=== PATIENT | male | born 1970 | race Caucasian/White ===

== ENCOUNTER 2019-10-26 17:10 | Emergency (ER) | payer OTHER, SELFPAY ==
[2019-10-26 17:30] VITALS: BP 142/90; PULSE 70; RESP 16; TEMP 36.6; O2SAT 98
--- NOTE | 2019-10-26 17:45 | ED.GENADULT ---
HPI - General Adult General Chief complaint: Ear Stated complaint: ear pain Time Seen by Provider: 10/26/19 17:14 Source: patient Mode of arrival: ambulatory Limitations: no limitations History of Present Illness HPI narrative: 49-year-old male patient presents to the [facility] with complaints of left ear pain that started worse today. Patient states he has had some sinus issues and some cold symptoms going on for the past week and did see his primary doctor earlier this week and was told that his left ear does look a little red but states that it was not infected and did not need antibiotics. Patient does take Flonase daily he states 2 squirts in each nostril once a day. Patient states that 24-hour antihistamines typically do not work for him so he does not take them but he does take 50 mg of Benadryl once a day. Patient states he is also been taking Tylenol for his symptoms. Patient states he has a slight sore throat with some nasal congestion and a clear runny nose but denies any chest pain or shortness of breath. Related Data Home Medications Medication Instructions Recorded Confirmed alprazolam 10/26/19 atenolol 10/26/19 fluticasone propionate INTRANASAL 10/26/19 omeprazole 10/26/19 Allergies Allergy/AdvReac Type Severity Reaction Status Date / Time levofloxacin Allergy Mild Unknown Verified 10/26/19 17:26 lidocaine Allergy Mild Unknown Verified 10/26/19 17:26 NSAIDS (Non-Steroidal Allergy Mild gastritis Verified 10/26/19 17:26 Anti-Inflamma Quinolones Allergy Mild Unknown Verified 10/26/19 17:26 Sulfa (Sulfonamide Allergy Mild RASH Verified 10/26/19 17:26 Antibiotics) sulfamethoxazole Allergy Mild RASH Verified 10/26/19 17:26 trimethoprim Allergy Mild RASH Verified 10/26/19 17:26 acetaminophen Allergy Unknown Unknown Verified 10/26/19 17:26 amlodipine Allergy Unknown HIVES Verified 10/26/19 17:26 azithromycin Allergy Unknown Unknown Verified 10/26/19 17:26 cephalexin Allergy Unknown Unknown Verified 10/26/19 17:26 famotidine Allergy Unknown Unknown Verified 10/26/19 17:26 flavoxate Allergy Unknown Unknown Verified 10/26/19 17:26 lisinopril Allergy Unknown HIVES Verified 10/26/19 17:26 losartan Allergy Unknown SWLLEING Verified 10/26/19 17:26 LIP AND HIVES nebivolol Allergy Unknown LIP Verified 10/26/19 17:26 SWELLING nitrofurantoin Allergy Unknown Unknown Verified 10/26/19 17:26 oxycodone Allergy Unknown Unknown Verified 10/26/19 17:26 paroxetine Allergy Unknown Unknown Verified 10/26/19 17:26 spironolactone Allergy Unknown RASH AND Verified 10/01/19 19:38 ITCHING valsartan Allergy Unknown HIVES/SOB Verified 10/26/19 17:26 IV CONTRAST Allergy Intermediate THROAT Uncoded 10/26/19 17:26 CLOSES, SWEATING IV PEPCID Allergy Intermediate SWEATING, Uncoded 10/26/19 17:26 HIVES Contrast Media Allergy Mild Unknown Uncoded 10/01/19 19:38 Review of Systems Review of Systems: Narrative: CONSTITUTIONAL: Denies fever, chills, or sweats. EYES: Denies visual changes, redness, or discharge. ENT: Positive rhinorrhea, congestion, sore throat, and left otalgia. CARDIOVASCULAR: Denies chest pain, palpitations, or edema. RESPIRATORY: Positive mild cough, denies dyspnea. GASTROINTESTINAL: Denies abdominal pain, nausea, vomiting, or diarrhea. GENITOURINARY: Denies dysuria or hematuria. SKIN: Denies rash or itching. MUSCULOSKELETAL: Denies back pain, joint pain, or myalgia. NEUROLOGIC: Denies headache, numbness, or weakness. PSYCHIATRIC: Denies anxiety or depression. 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
== END 2019-10-26 17:58 | disposition home or self-care (01) ==
PROVIDERS: Emergency Provider Nurse Practitioner Family
DX: H93.8X3 Other specified disorders of ear, bilateral (principal); J06.9 Acute upper respiratory infection, unspecified; Z98.84 Bariatric surgery status; J45.909 Unspecified asthma, uncomplicated; I25.10 Atherosclerotic heart disease of native coronary artery without angina pectoris; K21.9 Gastro-esophageal reflux disease without esophagitis; I10 Essential (primary) hypertension; E78.5 Hyperlipidemia, unspecified; G47.30 Sleep apnea, unspecified; I25.2 Old myocardial infarction; F41.9 Anxiety disorder, unspecified
CPT/HCPCS: 99211; G0463

== ENCOUNTER 2019-10-30 18:59 | Emergency (ER) | payer OTHER, SELFPAY ==
[2019-10-30 19:18] VITALS: BP 156/97; PULSE 69; RESP 16; TEMP 37.1; O2SAT 98
--- NOTE | 2019-10-30 19:20 | PC.NURSE ---
in br to obtain ua spec.
--- NOTE | 2019-10-30 19:29 | ED.GENADULT ---
HPI - General Adult General Chief complaint: Upper Respiratory Infection Stated complaint: Sinus/L/Ear/Frequent Urination/Chills/Sweating Time Seen by Provider: 10/30/19 19:30 Source: patient and RN notes reviewed Mode of arrival: ambulatory Limitations: no limitations History of Present Illness HPI narrative: 49-year-old male presents with multiple complaints. Reports urine frequency, hematuria on and off for the past 2 weeks. Reports he was seen in the emergency room and had work-up that was negative. Reports he has an appointment with a urologist this week. He also reports left ear and/or jaw pain. Reports he was seen 1 week ago and told to double up on his Flonase which he did and it did not work. He denies fever, rhinorrhea. Reports chills, body aches. MD complaint: Jaw pain, urine frequency Related Data Home Medications Medication Instructions Recorded Confirmed alprazolam 10/26/19 atenolol 10/26/19 fluticasone propionate INTRANASAL 10/26/19 omeprazole 10/26/19 finasteride mg 10/30/19 sitagliptin [Januvia] mg 10/30/19 Allergies Allergy/AdvReac Type Severity Reaction Status Date / Time levofloxacin Allergy Mild Unknown Verified 10/26/19 17:26 lidocaine Allergy Mild Unknown Verified 10/26/19 17:26 NSAIDS (Non-Steroidal Allergy Mild gastritis Verified 10/26/19 17:26 Anti-Inflamma Quinolones Allergy Mild Unknown Verified 10/26/19 17:26 Sulfa (Sulfonamide Allergy Mild RASH Verified 10/26/19 17:26 Antibiotics) sulfamethoxazole Allergy Mild RASH Verified 10/26/19 17:26 trimethoprim Allergy Mild RASH Verified 10/26/19 17:26 acetaminophen Allergy Unknown Unknown Verified 10/26/19 17:26 amlodipine Allergy Unknown HIVES Verified 10/26/19 17:26 azithromycin Allergy Unknown Unknown Verified 10/26/19 17:26 cephalexin Allergy Unknown Unknown Verified 10/26/19 17:26 famotidine Allergy Unknown Unknown Verified 10/26/19 17:26 flavoxate Allergy Unknown Unknown Verified 10/26/19 17:26 lisinopril Allergy Unknown HIVES Verified 10/26/19 17:26 losartan Allergy Unknown SWLLEING Verified 10/26/19 17:26 LIP AND HIVES nebivolol Allergy Unknown LIP Verified 10/26/19 17:26 SWELLING nitrofurantoin Allergy Unknown Unknown Verified 10/26/19 17:26 oxycodone Allergy Unknown Unknown Verified 10/26/19 17:26 paroxetine Allergy Unknown Unknown Verified 10/26/19 17:26 spironolactone Allergy Unknown RASH AND Verified 10/01/19 19:38 ITCHING valsartan Allergy Unknown HIVES/SOB Verified 10/26/19 17:26 IV CONTRAST Allergy Intermediate THROAT Uncoded 10/26/19 17:26 CLOSES, SWEATING IV PEPCID Allergy Intermediate SWEATING, Uncoded 10/26/19 17:26 HIVES Contrast Media Allergy Mild Unknown Uncoded 10/01/19 19:38 Review of Systems Review of Systems: Narrative: CONSTITUTIONAL: Denies malaise, fever. Reports chills, sweats EYES: Denies visual changes, redness, or discharge. ENT: Denies rhinorrhea, congestion, sinus pain, or sore throat.. Reports left ear and jaw pain CARDIOVASCULAR: Denies chest pain, palpitations, or edema. RESPIRATORY: Denies improving cough. Denies dyspnea. GASTROINTESTINAL: Denies abdominal pain, nausea, vomiting, diarrhea GENITOURINARY: Denies dysuria. Reports frequency, hematuria. MUSCULOSKELETAL: Reports myalgia. All systems reviewed & are unremarkable except as noted in HPI and below PMFSH Social History Social History Smoking status: Never smoker Comments At time of signature, agree with nursing past medical, surgical, social and family history. There is no relevant family history pertinent to the presenting complaint Exam Narrative: Exam Narrative: GENERAL: Well-appearing, well-nourished, and in no acute distress. HEAD: Normocephalic EYES: PERRLA, conjunctivae clear ENT: Nares clear, turbinates erythematous with clear rhinorrhea. Mucous membranes moist. TM pearly valdez with sharp light reflex bilaterally; no tragal t
== END 2019-10-30 20:12 | disposition home or self-care (01) ==
PROVIDERS: Emergency Provider Nurse Practitioner
DX: R35.0 Frequency of micturition (principal); R68.84 Jaw pain; R31.29 Other microscopic hematuria; I10 Essential (primary) hypertension; K21.9 Gastro-esophageal reflux disease without esophagitis; E11.9 Type 2 diabetes mellitus without complications
CPT/HCPCS: 81003; 87086; 99213; G0463

== ENCOUNTER 2019-11-10 10:58 | Emergency (ER) | payer OTHER, SELFPAY ==
--- NOTE | ~2019-11-10 | XR_ITS ---
EXAMINATION: XR finger 1st LT min 2V INDICATION: Left first finger pain TECHNIQUE: Three views of the left first finger are obtained. COMPARISON: None available FINDINGS: A well-corticated osseous fragment projecting dorsal to the first interphalangeal joint. No definite acute osseous abnormality is identified. There is mild soft tissue swelling of the finger. IMPRESSION: 1. No definite acute osseous abnormality. Well-corticated osseous fragment projecting dorsal to the f irst interphalangeal joint may reflect old injury. Reviewed, dictated and finalized at location A. EM INTEGRATION ENGINEER IMPRESSION: 1. No definite acute osseous abnormality. Well-corticated osseous fragment proj ecting dorsal to the first interphalangeal joint may reflect old injury.
[2019-11-10 11:15] VITALS: BP 146/70; PULSE 63; RESP 16; TEMP 36.8; O2SAT 99
--- NOTE | 2019-11-10 11:32 | ED.GENADULT ---
HPI - General Adult General Chief complaint: Extremity Injury, Upper Stated complaint: Left Thumb Pain Time Seen by Provider: 11/10/19 11:33 Source: patient Mode of arrival: ambulatory Limitations: no limitations History of Present Illness HPI narrative: 49-year-old male patient presents to the [facility] with complaints of left thumb pain. Patient states that he was reaching into the washer and jammed his left thumb. Patient states he had a little bit of bleeding at the distal portion of the nail which has since stopped. Patient states he did ice the thumb a little bit. Denies taking anything for the pain. Patient states it does hurt at the knuckles and is concerned that he might have broken it requesting an x-ray. Related Data Home Medications Medication Instructions Recorded Confirmed albuterol sulfate INHALATION 11/10/19 alfuzosin mg PO 11/10/19 alprazolam 11/10/19 atenolol 11/10/19 diphenhydramine HCl [Benadryl] 50 mg PO Q6H PRN 11/10/19 11/10/19 finasteride mg 11/10/19 fluticasone propionate INTRANASAL 11/10/19 glimepiride mg 11/10/19 metformin mg PO 11/10/19 omeprazole 11/10/19 sitagliptin [Januvia] mg 11/10/19 Review of Systems Review of Systems: Narrative: CONSTITUTIONAL: Denies fever, chills, or sweats. EYES: Denies visual changes, redness, or discharge. ENT: Denies rhinorrhea, congestion, sore throat, or otalgia. CARDIOVASCULAR: Denies chest pain, palpitations, or edema. RESPIRATORY: Denies cough or dyspnea. GASTROINTESTINAL: Denies abdominal pain, nausea, vomiting, or diarrhea. GENITOURINARY: Denies dysuria or hematuria. SKIN: Denies rash or itching. MUSCULOSKELETAL: Denies back pain, joint pain, or myalgia. Positive left thumb pain NEUROLOGIC: Denies headache, numbness, or weakness. PSYCHIATRIC: Denies anxiety or depression. REPLACED BY [facility] Family History Family History Grandparent Family history of obesity Hypertension Diabetes mellitus Mother Depression Patient's mother is in good health Family history of mental disorder Father Hypertension Patient's father is in good health Family history of alcoholism Cerebrovascular accident Sibling Patient's sister is in good health Patient's brother is in good health Other Family history of cardiovascular disease Social History Social History Smoking status: Never smoker Smoking end date: 09/13/11 Alcohol intake: never Comments At the time of my signature I agree with nursing past medical history, surgical, social, and family history. There is no relevant family history pertinent to the presenting complaint. Exam Narrative: Exam Narrative: GENERAL: Well-appearing, well-nourished, and in no acute distress. HEAD: Normocephalic, atraumatic. EYES: PERRLA and EOMI. ENT: Nares clear, no rhinorrhea or epistaxis. Mucous membranes moist. NECK: Supple. No lymphadenopathy CHEST: Clear to auscultation. No respiratory distress. HEART: Regular rate and rhythm. No murmur heard. Normal peripheral pulses. ABDOMEN: Soft, nontender, nondistended, normal active bowel sounds. EXTREMITIES: The L hand is without obvious asymmetry or deformity when compared to the R hand. No swelling, erythema, atrophy, or obvious deformity. No surface trauma, open wounds, nail avulsion, tissue avulsion, partial or complete amputation, subungual hematoma, bony deformity. Normal cascade of fingers. Normal flexion and extension of fingers but does have pain to the left thumb with this motion. Patient has a little bit of blood noted to the distal and of the finger nail. No active bleeding at this time. FDS and FDP intact aganist restistance. No focal fullness, thobbing pain, swelling of fingertip. Tenderness noted to palpation at the DIP and PIP joint on the left thumb. Pulses and cap refill are intact and normal. SKIN: Warm, dry, no rash. NEURO: No focal deficits.
--- NOTE | 2019-11-10 11:55 | PC.NURSE ---
chart not complete with medications, history, or allergies. said too many allergies to list. aware of multiple medical records and need to combine. ems manager, exp director and IT notified.
== END 2019-11-10 12:05 | disposition home or self-care (01) ==
PROVIDERS: Emergency Provider Nurse Practitioner Family
DX: S69.92XA Unspecified injury of left wrist, hand and finger(s), initial encounter (principal); W22.8XXA Striking against or struck by other objects, initial encounter; E78.00 Pure hypercholesterolemia, unspecified; I10 Essential (primary) hypertension; I25.2 Old myocardial infarction; K21.9 Gastro-esophageal reflux disease without esophagitis; E11.9 Type 2 diabetes mellitus without complications; F41.9 Anxiety disorder, unspecified; F32.9 Major depressive disorder, single episode, unspecified
CPT/HCPCS: 29130; 73140; 99203; G0463

== ENCOUNTER 2019-11-27 15:22 | Emergency (ER) | payer OTHER, SELFPAY ==
--- NOTE | ~2019-11-27 | XR_ITS ---
EXAMINATION: XR chest 2V DATE: 11/27/2019 16:22 INDICATION: Cough and shortness of breath TECHNIQUE: frontal and lateral views of the chest were obtained. COMPARISON: Chest radiograph dated 09/09/2019 FINDINGS: The lungs remain clear with no focal airspace opacities, pulmonary edema, pleural effusion or pneumot horax. The cardiomediastinal silhouette is normal. Mild upper thoracic levoscoliosis. IMPRESSION: 1. No acute cardiopulmonary disease. Reviewed, dictated and finalized at location A.
[2019-11-27 15:29] VITALS: BP 173/88; PULSE 64; RESP 20; TEMP 36.4; O2SAT 100
--- NOTE | 2019-11-27 16:13 | ED.GENADULT ---
HPI - General Adult General Chief complaint: Upper Respiratory Infection Stated complaint: cough/sinus issues/rib pain History of Present Illness HPI narrative: Patient is a 49-year-old male with a history significant for asthma and pneumonia who presents to the urgent care for evaluation of shortness of breath and bilateral rib pain that began approximately 6 days ago. He also reports semi-productive cough, sinus congestion, hoarseness, and sweats. Sputum production is thick but sometimes thin, small in quantity and yellow in color. He has been taking OTC cough suppressants, inhaler, Flonase, or Tylenol. Nothing improves or worsen symptoms. Patient initially thought his symptoms were caused by anxiety although he came concerned when he began experiencing shortness of breath. He does report increased stress lately. He does report rash on nose although has been wearing a mask the majority of his day. He states he has called [facility] in [place] regarding coronavirus and was informed that he did not meet criteria for testing. He states, they told me they don't even see CT. patients. That only [place] sees [place] patients and [place] sees [place] patients . Patient is requesting a mask for who is at home. He states his is concerned that she may contract his illness. Of note, patient reports he was seen at [facility] for eye drainage and was prescribed ophthalmologic antibiotic and continues to verbalize his frustrations with the provider in clinic at that time. Patient also reports firing his PCP since he was unhappy with their service as well. l denies history of COPD, bronchitis. Denies current/past tobacco use. Pertinent negatives: fever, sweats, chills, change in appetite, fatigue, skin color changes, headache, nasal congestion/discharge, dizziness, lymphadenopathy, sinus problems, ear pain/drainage, chest pain, heart murmurs, heart palpitations, shortness of breath, wheezing, cyanosis, hemoptysis, hoarseness, orthopnea, pleuritic pain, nausea, vomiting, diarrhea, and myalgias. Related Data Home Medications Medication Instructions Recorded Confirmed alprazolam 10/26/19 atenolol 10/26/19 fluticasone propionate INTRANASAL 10/26/19 albuterol sulfate INHALATION 11/10/19 omeprazole 11/10/19 diphenhydramine HCl [Benadryl] 50 mg PO HS 11/27/19 11/27/19 Allergies Allergy/AdvReac Type Severity Reaction Status Date / Time levofloxacin Allergy Mild Unknown Verified 11/27/19 15:39 lidocaine Allergy Mild Unknown Verified 11/27/19 15:39 NSAIDS (Non-Steroidal Allergy Mild gastritis Verified 11/27/19 15:39 Anti-Inflamma Quinolones Allergy Mild Unknown Verified 11/27/19 15:39 Sulfa (Sulfonamide Allergy Mild RASH Verified 11/27/19 15:39 Antibiotics) sulfamethoxazole Allergy Mild RASH Verified 11/27/19 15:39 trimethoprim Allergy Mild RASH Verified 11/27/19 15:39 acetaminophen Allergy Unknown Unknown Verified 11/27/19 15:39 amlodipine Allergy Unknown HIVES Verified 11/27/19 15:39 azithromycin Allergy Unknown Unknown Verified 11/27/19 15:39 cephalexin Allergy Unknown Unknown Verified 11/27/19 15:39 famotidine Allergy Unknown Unknown Verified 11/27/19 15:39 flavoxate Allergy Unknown Unknown Verified 11/27/19 15:39 lisinopril Allergy Unknown HIVES Verified 11/27/19 15:39 losartan Allergy Unknown SWLLEING Verified 11/27/19 15:39 LIP AND HIVES nebivolol Allergy Unknown LIP Verified 11/27/19 15:39 SWELLING nitrofurantoin Allergy Unknown Unknown Verified 11/27/19 15:39 oxycodone Allergy Unknown Unknown Verified 11/27/19 15:39 paroxetine Allergy Unknown Unknown Verified 11/27/19 15:39 spironolactone Allergy Unknown RASH AND Verified 11/27/19 15:39 ITCHING valsartan Allergy Unknown HIVES/SOB Verified 11/27/19 15:39 IV CONTRAST Allergy Intermediate THROAT Uncoded 11/17/19 14:30 CLOSES, SWEATING IV PEPCID Allergy Intermediate SWEATING, Uncoded 11/17/19 14:30 HIVES Contrast Media Allergy Mild Unknown Uncod
== END 2019-11-27 16:31 | disposition home or self-care (01) ==
PROVIDERS: Emergency Provider Nurse Practitioner Family
DX: S01.20XA Unspecified open wound of nose, initial encounter (principal); X58.XXXA Exposure to other specified factors, initial encounter; J06.9 Acute upper respiratory infection, unspecified; Z98.84 Bariatric surgery status; F41.9 Anxiety disorder, unspecified; J45.909 Unspecified asthma, uncomplicated; I25.10 Atherosclerotic heart disease of native coronary artery without angina pectoris; J21.9 Acute bronchiolitis, unspecified; I25.2 Old myocardial infarction; I10 Essential (primary) hypertension; G47.30 Sleep apnea, unspecified
CPT/HCPCS: 71046; 87081; 87804; 87880; 99213; G0463

== ENCOUNTER 2019-12-11 18:22 | Emergency (ER) | payer OTHER, SELFPAY ==
[2019-12-11 18:28] VITALS: BP 167/92; PULSE 66; RESP 20; TEMP 36.6; O2SAT 100
[2019-12-11 18:51] VITALS: BP 145/99; PULSE 63
[2019-12-11 18:52] VITALS: BP 138/89; BP 142/94; PULSE 66; PULSE 67
--- NOTE | 2019-12-11 18:52 | ED.GENADULT ---
HPI - General Adult General Chief complaint: Headache Stated complaint: headache/anxiety Time Seen by Provider: 12/11/19 18:52 History of Present Illness HPI narrative: 49-year-old male presents with complaints of anxiety and intermittent headache (not the worst of his life) for the past 5 days. Xanax 2mg with relief, last this am approximately 05:00 per Carlos. History of Anxiety and Depression. Carlso says his anxiety has been increasing over the last 48 hours, worse today once his PMD told him she couldn't do anything for him at approximately 16:17 and he called her at 14:24 today. Xanax helps him to relax, be focus, and allows him to sleep. Carlos has been on Xanax for months, last had a 10 supply filled on 11/28/19. Denies suicidal ideation, homicidal ideation, auditory and visual hallucinations. Denies having chest pain or shortness of breath. Denies syncopal, head or chest trauma, altered mental status change or vision, altered speech, confusion, or seizure activity. Carlos says he recently had psychiatric evaluation appointment changed from 12/04/19 to 12/12/19 now has been changed to 12/21/19. He was been treated by a MD in [place] until he was released from his care. Denies using alcohol or recreational drug usage. Some parts of this dictation were generated by voice recognition software and may contain typographical and/or grammatical inaccuracies. Related Data Home Medications Medication Instructions Recorded Confirmed atenolol 10/26/19 fluticasone propionate INTRANASAL 10/26/19 albuterol sulfate INHALATION PRN 11/10/19 omeprazole 11/10/19 diphenhydramine HCl [Benadryl] 50 mg PO HS 11/27/19 12/11/19 Allergies Allergy/AdvReac Type Severity Reaction Status Date / Time levofloxacin Allergy Mild Unknown Verified 12/11/19 18:35 lidocaine Allergy Mild Unknown Verified 12/11/19 18:35 NSAIDS (Non-Steroidal Allergy Mild gastritis Verified 12/11/19 18:35 Anti-Inflamma Quinolones Allergy Mild Unknown Verified 12/11/19 18:35 Sulfa (Sulfonamide Allergy Mild RASH Verified 12/11/19 18:35 Antibiotics) sulfamethoxazole Allergy Mild RASH Verified 12/11/19 18:35 trimethoprim Allergy Mild RASH Verified 12/11/19 18:35 acetaminophen Allergy Unknown Unknown Verified 12/11/19 18:35 amlodipine Allergy Unknown HIVES Verified 12/11/19 18:35 azithromycin Allergy Unknown Unknown Verified 12/11/19 18:35 cephalexin Allergy Unknown Unknown Verified 12/11/19 18:35 famotidine Allergy Unknown Unknown Verified 12/11/19 18:35 flavoxate Allergy Unknown Unknown Verified 12/11/19 18:35 lisinopril Allergy Unknown HIVES Verified 12/11/19 18:35 losartan Allergy Unknown SWLLEING Verified 12/11/19 18:35 LIP AND HIVES nebivolol Allergy Unknown LIP Verified 12/11/19 18:35 SWELLING nitrofurantoin Allergy Unknown Unknown Verified 12/11/19 18:35 oxycodone Allergy Unknown Unknown Verified 12/11/19 18:35 paroxetine Allergy Unknown Unknown Verified 12/11/19 18:35 spironolactone Allergy Unknown RASH AND Verified 12/11/19 18:35 ITCHING valsartan Allergy Unknown HIVES/SOB Verified 12/11/19 18:35 IV CONTRAST Allergy Intermediate THROAT Uncoded 11/17/19 14:30 CLOSES, SWEATING IV PEPCID Allergy Intermediate SWEATING, Uncoded 11/17/19 14:30 HIVES Contrast Media Allergy Mild Unknown Uncoded 11/17/19 14:30 Review of Systems Review of Systems: Narrative: CONSTITUTIONAL: Denies fever, chills, sweats. EYES: Denies visual changes, redness, discharge. ENT: Denies rhinorrhea, congestion, sore throat, otalgia. CARDIOVASCULAR: Denies chest pain, palpitations, edema. RESPIRATORY: Denies dyspnea, wheezing, cough. GASTROINTESTINAL: Denies abdominal pain, nausea, vomiting, diarrhea. GENITOURINARY: Denies dysuria, hematuria, abnormal discharge. SKIN: Denies rash or itching. MUSCULOSKELETAL: Denies acute back pain, joint pain, or myalgia. NEUROLOGIC: Denies numbness or focal weakness. PSYCHIATRIC: Complains of a
== END 2019-12-11 19:13 | disposition home or self-care (01) ==
PROVIDERS: Emergency Provider Nurse Practitioner Family
DX: F41.9 Anxiety disorder, unspecified (principal); Z98.84 Bariatric surgery status; J45.909 Unspecified asthma, uncomplicated; I25.10 Atherosclerotic heart disease of native coronary artery without angina pectoris; K21.9 Gastro-esophageal reflux disease without esophagitis; I25.2 Old myocardial infarction; I10 Essential (primary) hypertension; E78.5 Hyperlipidemia, unspecified; G47.30 Sleep apnea, unspecified
CPT/HCPCS: 99213; G0463

== ENCOUNTER 2019-12-20 17:56 | Emergency (ER) | payer OTHER, SELFPAY ==
[2019-12-20 18:00] VITALS: BP 161/91; PULSE 76; RESP 16; TEMP 36.8; O2SAT 99
--- NOTE | 2019-12-20 18:00 | ED.ANXIETY ---
HPI - Anxiety General Chief Complaint: Anxiety Stated Complaint: anxiety History of Present Illness HPI narrative: This is a 49 year old male that comes in complaining of only having one Alprazolam left and he needs more. Patient states that he fired his psychiatrist because he accused him of being a criminals because he has a federal case against him. Patient states he need Alprazolam 2 mg tid until he can get in with his new doctor. He states he has been on this medication for the past 20 years and he cannot go without it because he will go through withdrawal. Patient states that he had them filled here 10 days ago and it is normally not a problem. I informed patient I do not normally fill Benzo's patient request that I call my refrigeration supervisor because he is sure it will not be a problem. Related Data Home Medications Medication Instructions Recorded Confirmed atenolol 10/26/19 fluticasone propionate INTRANASAL 10/26/19 albuterol sulfate INHALATION PRN 11/10/19 omeprazole 11/10/19 diphenhydramine HCl [Benadryl] 50 mg PO HS 11/27/19 12/11/19 Allergies Allergy/AdvReac Type Severity Reaction Status Date / Time levofloxacin Allergy Mild Unknown Verified 12/24/19 21:43 lidocaine Allergy Mild Unknown Verified 12/24/19 21:43 NSAIDS (Non-Steroidal Allergy Mild gastritis Verified 12/24/19 21:43 Anti-Inflamma Quinolones Allergy Mild Unknown Verified 12/24/19 21:43 Sulfa (Sulfonamide Allergy Mild RASH Verified 12/24/19 21:43 Antibiotics) sulfamethoxazole Allergy Mild RASH Verified 12/24/19 21:43 trimethoprim Allergy Mild RASH Verified 12/24/19 21:43 acetaminophen Allergy Unknown Unknown Verified 12/24/19 21:43 amlodipine Allergy Unknown HIVES Verified 12/24/19 21:43 azithromycin Allergy Unknown Unknown Verified 12/24/19 21:43 cephalexin Allergy Unknown Unknown Verified 12/24/19 21:43 famotidine Allergy Unknown Unknown Verified 12/24/19 21:43 flavoxate Allergy Unknown Unknown Verified 12/24/19 21:43 lisinopril Allergy Unknown HIVES Verified 12/24/19 21:43 losartan Allergy Unknown SWLLEING Verified 12/24/19 21:43 LIP AND HIVES nebivolol Allergy Unknown LIP Verified 12/24/19 21:43 SWELLING nitrofurantoin Allergy Unknown Unknown Verified 12/24/19 21:43 oxycodone Allergy Unknown Unknown Verified 12/24/19 21:43 paroxetine Allergy Unknown Unknown Verified 12/24/19 21:43 spironolactone Allergy Unknown RASH AND Verified 12/24/19 21:43 ITCHING valsartan Allergy Unknown HIVES/SOB Verified 12/24/19 21:43 IV CONTRAST Allergy Intermediate THROAT Uncoded 12/24/19 21:43 CLOSES, SWEATING IV PEPCID Allergy Intermediate SWEATING, Uncoded 12/24/19 21:43 HIVES Contrast Media Allergy Mild Unknown Uncoded 12/24/19 21:43 Review of Systems Review of Systems: Narrative: CONSTITUTIONAL: Denies fever, chills, or sweats. EYES: Denies visual changes, redness, or discharge. ENT: Denies rhinorrhea, congestion, sore throat, or otalgia. CARDIOVASCULAR:Denies chest pain, palpitations, or edema. RESPIRATORY: Denies cough or dyspnea. GASTROINTESTINAL: Denies abdominal pain, nausea, vomiting, or diarrhea. GENITOURINARY: Denies dysuria or hematuria. SKIN:[Denies rash or itching. MUSCULOSKELETAL:Denies back pain, joint pain, or myalgia. NEUROLOGIC: Denies headache, numbness, or weakness. PSYCHIATRIC: Reports anxiety or depression PMFSH Social History Social History Smoking status: Never smoker Smoking end date: 09/13/11 Alcohol intake: never Gender identity (if verbalized by the patient): Male Comments At time as signature, I have reviewed and agree with nursing past medical, social, surgical and family history. Please see nursing chart for further information. There is no relevant family history pertinent to the presenting complaint. Exam Narrative: Exam Narrative: GENERAL:Well-appearing, well-nourished, and in no acute distress. HEAD:Normocephalic, atr
== END 2019-12-20 18:30 | disposition home or self-care (01) ==
PROVIDERS: Emergency Provider Nurse Practitioner Family
DX: F41.0 Panic disorder [episodic paroxysmal anxiety] (principal); E78.00 Pure hypercholesterolemia, unspecified; I10 Essential (primary) hypertension; K21.9 Gastro-esophageal reflux disease without esophagitis; E11.9 Type 2 diabetes mellitus without complications; F32.9 Major depressive disorder, single episode, unspecified
CPT/HCPCS: 99211; G0463

== ENCOUNTER 2019-12-24 21:25 | Emergency (ER) | payer OTHER, SELFPAY ==
--- NOTE | ~2019-12-24 | XR_ITS ---
EXAMINATION: XR chest 1V portable DATE: 12/24/2019 21:52 INDICATION: Left chest pain. TECHNIQUE: A single frontal view of the chest was obtained. COMPARISON: Chest 2 views 11/27/2019, CT abdomen and pelvis 10/01/2019 FINDINGS: The chest demonstrates clear lungs without pneumonia, pleural effusion, or pneumothorax. Th e heart size is normal. IMPRESSION: 1. No acute cardiopulmonary disease. Reviewed, dictated and finalized at location A.
[2019-12-24 21:30] VITALS: BP 156/90; PULSE 73; RESP 14; TEMP 37.3; O2SAT 99
--- NOTE | 2019-12-24 21:37 | ECG_ITS ---
Measurements Intervals [place] Rate: 73 P: 10 [place]: 158 QRS: 40 QRSD: 101 T: 4 QT: 381 QTc: 421 Interpretive Statements SINUS RHYTHM BORDERLINE T WAVE ABNORMALITY- INFERIOR LEADS BASELINE ARTIFACT- I, III, AVL, AVF, V4-V6 BORDERLINE ECG Electronically Signed On 12-25-2019 7:11:59 CDT by Yonathan Ross D.O.
[2019-12-24 21:53] LABS: Basophils Percent Auto 0.7 % (0.2-1.2); Eosinophils Absolute Auto 0.2 K/mm3 (0-0.3); Eosinophils Percent Auto 2.5 % (0-4.4); Hematocrit 44.9 % (42.0-52.0); Hemoglobin 14.3 g/dL (14.0-18.0); Immature Granulocyte Absolute 0.01 K/mm3 (0.00-0.031); Immature Granulocyte Percent A 0.2 % (0-0.5); Lymphocytes Absolute Auto 1.71 K/mm3 (0.9-3.2); Lymphocytes Percent Auto 28.6 % (18.3-44.2); Mean Corpuscular HGB Conc 31.8 g/dl (32-36); Mean Corpuscular Hemoglobin 24.3 pg (26-34); Mean Corpuscular Volume 76.4 fl (80-100); Mean Platelet Volume 9.4 fl (7.4-10.4); Monocytes Absolute Auto 0.3 K/mm3 (0.1-0.6); Monocytes Percent Auto 5.2 % (2.6-8.5); Neutrophils Absolute Auto 3.8 K/mm3 (1.3-6.7); Neutrophils Percent Auto 62.8 % (45.5-73.1); Platelet Count Result 179 k/mm3 (150-375); Red Blood Count 5.88 M/mm3 (4.6-6.20); Red Cell Distribution Width 15.9 % (11.5-14.5)
--- NOTE | 2019-12-24 21:57 | ED.GENADULT ---
HPI - General Adult General Chief complaint: Anxiety Stated complaint: anxiety Time Seen by Provider: 12/24/19 21:28 History of Present Illness HPI narrative: Patient presents emergency department from home for anxiety. Patient states he has a history of anxiety and is on Xanax 2 mg TID. He states that he has been low on his medication only has 1 tablet left that he has been trying to hold out taking. States last time he took any medication was this morning. Patient states that he is been feeling anxious. Notes some mild shortness of breath this evening as well as some palpitations of his chest states that he feels a generalized chest tightness with the symptoms. He denies any fevers or chills abdominal pain nausea vomiting or any other symptoms Related Data Home Medications Medication Instructions Recorded Confirmed atenolol 10/26/19 fluticasone propionate INTRANASAL 10/26/19 albuterol sulfate INHALATION PRN 11/10/19 omeprazole 11/10/19 diphenhydramine HCl [Benadryl] 50 mg PO HS 11/27/19 12/11/19 Allergies Allergy/AdvReac Type Severity Reaction Status Date / Time levofloxacin Allergy Mild Unknown Verified 12/24/19 21:43 lidocaine Allergy Mild Unknown Verified 12/24/19 21:43 NSAIDS (Non-Steroidal Allergy Mild gastritis Verified 12/24/19 21:43 Anti-Inflamma Quinolones Allergy Mild Unknown Verified 12/24/19 21:43 Sulfa (Sulfonamide Allergy Mild RASH Verified 12/24/19 21:43 Antibiotics) sulfamethoxazole Allergy Mild RASH Verified 12/24/19 21:43 trimethoprim Allergy Mild RASH Verified 12/24/19 21:43 acetaminophen Allergy Unknown Unknown Verified 12/24/19 21:43 amlodipine Allergy Unknown HIVES Verified 12/24/19 21:43 azithromycin Allergy Unknown Unknown Verified 12/24/19 21:43 cephalexin Allergy Unknown Unknown Verified 12/24/19 21:43 famotidine Allergy Unknown Unknown Verified 12/24/19 21:43 flavoxate Allergy Unknown Unknown Verified 12/24/19 21:43 lisinopril Allergy Unknown HIVES Verified 12/24/19 21:43 losartan Allergy Unknown SWLLEING Verified 12/24/19 21:43 LIP AND HIVES nebivolol Allergy Unknown LIP Verified 12/24/19 21:43 SWELLING nitrofurantoin Allergy Unknown Unknown Verified 12/24/19 21:43 oxycodone Allergy Unknown Unknown Verified 12/24/19 21:43 paroxetine Allergy Unknown Unknown Verified 12/24/19 21:43 spironolactone Allergy Unknown RASH AND Verified 12/24/19 21:43 ITCHING valsartan Allergy Unknown HIVES/SOB Verified 12/24/19 21:43 IV CONTRAST Allergy Intermediate THROAT Uncoded 12/24/19 21:43 CLOSES, SWEATING IV PEPCID Allergy Intermediate SWEATING, Uncoded 12/24/19 21:43 HIVES Contrast Media Allergy Mild Unknown Uncoded 12/24/19 21:43 Review of Systems Review of Systems: Narrative: Gen.: Denies fevers or chills ENT: Denies congestion Respiratory: Shortness of breath, denies cough CV: D reports chest pain GI: Denies abdominal pain nausea, emesis or diarrhea Musculoskeletal: Denies back pain or muscle pain Neuro: Denies numbness, tingling, weakness or focal weakness Skin: Denies rash Psych: Reports anxiety Except as documented, all other systems reviewed and negative [facility] Past Medical History Medical History Anemia Anxiety Asthma CAD (coronary artery disease) Concussion Depression Diverticulitis Fracture nose, ribs, right knee, thumb, hand, neck GERD (gastroesophageal reflux disease) Heart attack HTN (hypertension) Hyperlipidemia Kidney stone Pleurisy Sinus problem Sleep apnea 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
[2019-12-24 22:02] LABS: Prothrombin Time 13.1 Seconds (11.1-14.7)
[2019-12-24 22:03] LABS: Partial Thromboplastin Time 37.9 SECONDS (22.3-36.8)
[2019-12-24 22:09] LABS: Blood Urea Nitrogen 10 mg/dL (9-20); Carbon Dioxide 30 mmol/L (22-30); Chloride 103 mmol/L (98-107); Estimated CRCL calculation 127 ml/min; Estimated Glomerular Filt Rate > 60; Glucose 111 mg/dL (75-110); Potassium 3.4 mmol/L (3.4-5.0); Sodium 141 mmol/L (137-145)
[2019-12-24 22:21] LABS: Troponin I < 0.012 ng/mL (0.000-0.034)
[2019-12-24 23:45] VITALS: BP 152/92; PULSE 79; RESP 18; O2SAT 100
== END 2019-12-24 23:47 | disposition home or self-care (01) ==
PROVIDERS: Emergency Provider Emergency Medicine
DX: F41.9 Anxiety disorder, unspecified (principal); J45.909 Unspecified asthma, uncomplicated; K21.9 Gastro-esophageal reflux disease without esophagitis; I25.2 Old myocardial infarction; E78.5 Hyperlipidemia, unspecified; Z87.442 Personal history of urinary calculi; G47.30 Sleep apnea, unspecified; R94.31 Abnormal electrocardiogram [ECG] [EKG]
CPT/HCPCS: 36415; 71045; 80048; 84484; 85025; 85610; 85730; 93005; 99284

== ENCOUNTER 2019-12-26 17:15 | Emergency (ER) | payer OTHER, SELFPAY ==
[2019-12-26 17:50] VITALS: BP 142/86; PULSE 64; RESP 16; TEMP 37; O2SAT 99
--- NOTE | 2019-12-26 18:37 | ED.GENADULT ---
HPI - General Adult General Chief complaint: Upper Respiratory Infection Stated complaint: sinus Time Seen by Provider: 12/26/19 18:37 Source: patient and RN notes reviewed Mode of arrival: ambulatory Limitations: no limitations History of Present Illness HPI narrative: 49-year-old male presents with complaints of upper respiratory infection, facial congestion, facial pain, intermittent bilateral eyes burning, and intermittent sore throat for the past 2 days. Flonase and Benadryl with little relief. History of Asthma and Sinus infection. No facial swelling. No cough. Nasal congestion and rhinorrhea. No chest pain or shortness of breath. No exacerbating factors. Denies fever or chills. Denies nausea, vomiting, and abdominal pain. Tolerating po intake well. Denies exposures to COVID-19 to his knowledge, says he was in [place] ED on 12/24/19 for chest pain. Denies recent traveling. Remains active. Some parts of this dictation were generated by voice recognition software and may contain typographical and/or grammatical inaccuracies. Related Data Home Medications Medication Instructions Recorded Confirmed atenolol 10/26/19 fluticasone propionate INTRANASAL 10/26/19 albuterol sulfate INHALATION PRN 11/10/19 omeprazole 11/10/19 diphenhydramine HCl [Benadryl] 50 mg PO HS 11/27/19 12/11/19 Allergies Allergy/AdvReac Type Severity Reaction Status Date / Time levofloxacin Allergy Mild Unknown Verified 12/24/19 21:43 lidocaine Allergy Mild Unknown Verified 12/24/19 21:43 NSAIDS (Non-Steroidal Allergy Mild gastritis Verified 12/24/19 21:43 Anti-Inflamma Quinolones Allergy Mild Unknown Verified 12/24/19 21:43 Sulfa (Sulfonamide Allergy Mild RASH Verified 12/24/19 21:43 Antibiotics) sulfamethoxazole Allergy Mild RASH Verified 12/24/19 21:43 trimethoprim Allergy Mild RASH Verified 12/24/19 21:43 acetaminophen Allergy Unknown Unknown Verified 12/24/19 21:43 amlodipine Allergy Unknown HIVES Verified 12/24/19 21:43 azithromycin Allergy Unknown Unknown Verified 12/24/19 21:43 cephalexin Allergy Unknown Unknown Verified 12/24/19 21:43 famotidine Allergy Unknown Unknown Verified 12/24/19 21:43 flavoxate Allergy Unknown Unknown Verified 12/24/19 21:43 lisinopril Allergy Unknown HIVES Verified 12/24/19 21:43 losartan Allergy Unknown SWLLEING Verified 12/24/19 21:43 LIP AND HIVES nebivolol Allergy Unknown LIP Verified 12/24/19 21:43 SWELLING nitrofurantoin Allergy Unknown Unknown Verified 12/24/19 21:43 oxycodone Allergy Unknown Unknown Verified 12/24/19 21:43 paroxetine Allergy Unknown Unknown Verified 12/24/19 21:43 spironolactone Allergy Unknown RASH AND Verified 12/24/19 21:43 ITCHING valsartan Allergy Unknown HIVES/SOB Verified 12/24/19 21:43 IV CONTRAST Allergy Intermediate THROAT Uncoded 12/24/19 21:43 CLOSES, SWEATING IV PEPCID Allergy Intermediate SWEATING, Uncoded 12/24/19 21:43 HIVES Contrast Media Allergy Mild Unknown Uncoded 12/24/19 21:43 Review of Systems Review of Systems: Narrative: CONSTITUTIONAL: Denies fever, chills, sweats. EYES: Denies visual changes, redness, discharge. Complains of intermittent bilateral eyes burning. ENT: Complains of rhinorrhea, congestion, intermittent sore throat. Denies otalgia. CARDIOVASCULAR: Denies chest pain, palpitations, edema. RESPIRATORY: Denies dyspnea, wheezing, cough. GASTROINTESTINAL: Denies abdominal pain, nausea, vomiting, diarrhea. GENITOURINARY: Denies dysuria, hematuria, abnormal discharge. SKIN: Denies rash or itching. MUSCULOSKELETAL: Denies acute back pain, joint pain, or myalgia. NEUROLOGIC: Denies numbness or focal weakness. PSYCHIATRIC: Denies anxiety or depression. All systems reviewed & are unremarkable except as noted in HPI and below. REPLACED BY [facility] Past Medical History Medical History Anemia Anxiety Asthma CAD (coronary artery disease) Concussion Depr
== END 2019-12-26 18:52 | disposition home or self-care (01) ==
PROVIDERS: Emergency Provider Nurse Practitioner Family
DX: J00 Acute nasopharyngitis [common cold] (principal); J01.90 Acute sinusitis, unspecified; D64.9 Anemia, unspecified; F41.9 Anxiety disorder, unspecified; J45.909 Unspecified asthma, uncomplicated; I25.10 Atherosclerotic heart disease of native coronary artery without angina pectoris; K21.9 Gastro-esophageal reflux disease without esophagitis; I25.2 Old myocardial infarction; I10 Essential (primary) hypertension; E78.5 Hyperlipidemia, unspecified; G47.30 Sleep apnea, unspecified; Z98.84 Bariatric surgery status
CPT/HCPCS: 99211; G0463

== ENCOUNTER 2019-12-31 08:26 | Emergency (ER) | payer OTHER, SELFPAY ==
[2019-12-31 08:43] VITALS: BP 169/114; PULSE 71; RESP 18; TEMP 36.6; O2SAT 100
--- NOTE | 2019-12-31 09:13 | ED.GENADULT ---
HPI - General Adult General Chief complaint: Anxiety Stated complaint: cough, sinus congestion Time Seen by Provider: 12/31/19 08:38 Source: patient Mode of arrival: ambulatory Limitations: no limitations History of Present Illness HPI narrative: Patient presents to the emergency department with multiple complaints. He is complaining of sinus pressure and drainage. He also complains of anxiety and high blood pressure. Patient states he has not been able to get a refill of his Xanax and stopped seeing his primary care physician as he was referred to a psychiatrist and has not been able to get and and she would not refill his medication. Patient has been to urgent care in the emergency department and was referred to on-call primary care physician. Patient states he has not been able to get in due to COVID-19 pandemic and decrease in availability to see someone in person. Patient is upset and frustrated with inability to see a primary care physician since his last ED visit. Patient has been seen numerous times at urgent care and once in the emergency department in the past month. Patient reports he has ongoing sinus symptoms despite taking acetaminophen and ibuprofen and drinking fluids. Patient has not been taking any sinus medications [id number]. MD complaint: Multiple complaints Treatments prior to arrival: NSAID and other (Acetaminophen, fluids) Related Data Home Medications Medication Instructions Recorded Confirmed atenolol 100 mg PO DAILY 10/26/19 fluticasone propionate 2 spray INTRANASAL DAILY 10/26/19 diphenhydramine HCl 50 mg PO PRN PRN 12/31/19 Allergies Allergy/AdvReac Type Severity Reaction Status Date / Time levofloxacin Allergy Mild Unknown Verified 12/31/19 08:46 lidocaine Allergy Mild Unknown Verified 12/31/19 08:46 NSAIDS (Non-Steroidal Allergy Mild gastritis Verified 12/31/19 08:46 Anti-Inflamma Quinolones Allergy Mild Unknown Verified 12/31/19 08:46 Sulfa (Sulfonamide Allergy Mild RASH Verified 12/31/19 08:46 Antibiotics) sulfamethoxazole Allergy Mild RASH Verified 12/31/19 08:46 trimethoprim Allergy Mild RASH Verified 12/31/19 08:46 acetaminophen Allergy Unknown Unknown Verified 12/31/19 08:46 amlodipine Allergy Unknown HIVES Verified 12/31/19 08:46 azithromycin Allergy Unknown Unknown Verified 12/31/19 08:46 cephalexin Allergy Unknown Unknown Verified 12/31/19 08:46 famotidine Allergy Unknown Unknown Verified 12/31/19 08:46 flavoxate Allergy Unknown Unknown Verified 12/31/19 08:46 lisinopril Allergy Unknown HIVES Verified 12/31/19 08:46 losartan Allergy Unknown SWLLEING Verified 12/31/19 08:46 LIP AND HIVES nebivolol Allergy Unknown LIP Verified 12/31/19 08:46 SWELLING nitrofurantoin Allergy Unknown Unknown Verified 12/31/19 08:46 oxycodone Allergy Unknown Unknown Verified 12/31/19 08:46 paroxetine Allergy Unknown Unknown Verified 12/31/19 08:46 spironolactone Allergy Unknown RASH AND Verified 12/31/19 08:46 ITCHING valsartan Allergy Unknown HIVES/SOB Verified 12/31/19 08:46 IV CONTRAST Allergy Intermediate THROAT Uncoded 12/31/19 08:46 CLOSES, SWEATING IV PEPCID Allergy Intermediate SWEATING, Uncoded 12/31/19 08:46 HIVES Contrast Media Allergy Mild Unknown Uncoded 12/31/19 08:46 Review of Systems Review of Systems: All systems reviewed & are unremarkable except as noted in HPI and below ENT: Reports post nasal drip and Reports sinus pain Psychiatric: Psychiatric: Reports anxiety PMFSH Past Medical History Medical History Anemia Anxiety Asthma CAD (coronary artery disease) Concussion Depression Diverticulitis Fracture nose, ribs, right knee, thumb, hand, neck GERD (gastroesophageal reflux disease) Heart attack HTN (hypertension) Hyperlipidemia Kidney stone Pleurisy Sinus problem Sleep apnea 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
== END 2019-12-31 09:33 | disposition home or self-care (01) ==
PROVIDERS: Emergency Provider Emergency Medicine
DX: R09.81 Nasal congestion (principal); F41.9 Anxiety disorder, unspecified; Z86.2 Personal history of diseases of the blood and blood-forming organs and certain disorders involving the immune mechanism; J45.909 Unspecified asthma, uncomplicated; I25.10 Atherosclerotic heart disease of native coronary artery without angina pectoris; K21.9 Gastro-esophageal reflux disease without esophagitis; I25.2 Old myocardial infarction; I10 Essential (primary) hypertension; E78.5 Hyperlipidemia, unspecified; Z87.442 Personal history of urinary calculi; G47.30 Sleep apnea, unspecified; Z98.84 Bariatric surgery status; F32.9 Major depressive disorder, single episode, unspecified
CPT/HCPCS: 99281

== ENCOUNTER 2020-02-16 19:16 | Emergency (ER) | payer OTHER, SELFPAY ==
[2020-02-16 19:22] VITALS: BP 140/74; PULSE 71; RESP 18; TEMP 36.6; O2SAT 99
--- NOTE | 2020-02-16 19:33 | PC.NURSE ---
Pt denies injury to right upper arm. Pt states he has shooting nerve pain down right arm from tricep to wrist. Unable to raise arm above his head. States he has some mild tingling in his hand. Pt states he went to chiropractor twice with no relief. Pt states he also woke up last night with a splitting headache early this AM and this afternoon, also notes some vision changes and says he has an appointment with his eye doctor next week.
--- NOTE | 2020-02-16 19:58 | ED.EXTPRO ---
HPI - Extremity Problem General Chief complaint: Extremity Problem,Nontraumatic <OMI Harley Last Filed: 02/16/20 20:02> Stated complaint: R arm pain <OMI Harley Last Filed: 02/16/20 20:02> Time Seen by Provider: 02/16/20 19:46 <OMI Harley Last Filed: 02/16/20 20:02> Source: patient and family <OMI Harley Last Filed: 02/16/20 20:02> Mode of arrival: ambulatory <OMI Harley Last Filed: 02/16/20 20:02> Limitations: no limitations <OMI Harley Last Filed: 02/16/20 20:02> History of Present Illness HPI Narrative: Patient is a 50-year-old male who presents to emergency department noting right arm pain around the elbow just above that radiates down into the hand that is been present for 5 days denies injury or trauma presents per private vehicle in no distress has been taking ibuprofen with minimal improvement denies similar occurrence or other injuries or complaints has been recently evaluated by primary care for this taking ibuprofen with no improvement <OMI Harley Last Filed: 02/16/20 20:02> Related Data Home medications: Home Medications Medication Instructions Recorded Confirmed atenolol 100 mg PO DAILY 10/26/19 fluticasone propionate 2 spray INTRANASAL DAILY 10/26/19 diphenhydramine HCl 50 mg PO PRN PRN 12/31/19 <OMI Harley Last Filed: 02/16/20 20:02> Allergies/Adverse reactions: Allergies Allergy/AdvReac Type Severity Reaction Status Date / Time levofloxacin Allergy Mild Unknown Verified 12/31/19 08:46 lidocaine Allergy Mild Unknown Verified 12/31/19 08:46 NSAIDS (Non-Steroidal Allergy Mild gastritis Verified 12/31/19 08:46 Anti-Inflamma Quinolones Allergy Mild Unknown Verified 12/31/19 08:46 Sulfa (Sulfonamide Allergy Mild RASH Verified 12/31/19 08:46 Antibiotics) sulfamethoxazole Allergy Mild RASH Verified 12/31/19 08:46 trimethoprim Allergy Mild RASH Verified 12/31/19 08:46 acetaminophen Allergy Unknown Unknown Verified 12/31/19 08:46 amlodipine Allergy Unknown HIVES Verified 12/31/19 08:46 azithromycin Allergy Unknown Unknown Verified 12/31/19 08:46 cephalexin Allergy Unknown Unknown Verified 12/31/19 08:46 famotidine Allergy Unknown Unknown Verified 12/31/19 08:46 flavoxate Allergy Unknown Unknown Verified 12/31/19 08:46 lisinopril Allergy Unknown HIVES Verified 12/31/19 08:46 losartan Allergy Unknown SWLLEING Verified 12/31/19 08:46 LIP AND HIVES nebivolol Allergy Unknown LIP Verified 12/31/19 08:46 SWELLING nitrofurantoin Allergy Unknown Unknown Verified 12/31/19 08:46 oxycodone Allergy Unknown Unknown Verified 12/31/19 08:46 paroxetine Allergy Unknown Unknown Verified 12/31/19 08:46 spironolactone Allergy Unknown RASH AND Verified 12/31/19 08:46 ITCHING valsartan Allergy Unknown HIVES/SOB Verified 12/31/19 08:46 IV CONTRAST Allergy Intermediate THROAT Uncoded 12/31/19 08:46 CLOSES, SWEATING IV PEPCID Allergy Intermediate SWEATING, Uncoded 12/31/19 08:46 HIVES Contrast Media Allergy Mild Unknown Uncoded 12/31/19 08:46 <Pravin Castellanos PA-C - Last Filed: 02/16/20 20:02> Review of Systems Review of Systems: All systems reviewed & are unremarkable except as noted in HPI and below <Pravin Castellanos PA-C - Last Filed: 02/16/20 20:02> [facility] Past Medical History Medical History: Medical History Anemia Anxiety Asthma CAD (coronary artery disease) Concussion Depression Diverticulitis Fracture nose, ribs, right knee, thumb, hand, neck GERD (gastroesophageal reflux disease) Heart attack HTN (hypertension) Hyperlipidemia Kidney stone Pleurisy Sinus problem Sleep apnea 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 <Pravin Castellanos PA-C - Last Filed: 02/16/20 20:02> Surgical History Surgical History: Surgical History (Reviewed 02/16/20 @
[2020-02-16 20:17] VITALS: BP 165/88; PULSE 86; RESP 16; O2SAT 99
== END 2020-02-16 20:19 | disposition home or self-care (01) ==
PROVIDERS: Emergency Provider Emergency Medicine
DX: M25.521 Pain in right elbow (principal); I25.10 Atherosclerotic heart disease of native coronary artery without angina pectoris; K21.9 Gastro-esophageal reflux disease without esophagitis; I25.2 Old myocardial infarction; E78.5 Hyperlipidemia, unspecified; Z87.442 Personal history of urinary calculi; G47.30 Sleep apnea, unspecified; Z98.84 Bariatric surgery status
CPT/HCPCS: 99283

== ENCOUNTER 2020-02-17 18:40 | Emergency (ER) | payer OTHER, SELFPAY ==
--- NOTE | ~2020-02-17 | CT_ITS ---
EXAMINATION: CT brain wo con EXAM DATE: 02/17/2020 20:08 INDICATION: Visual changes, right hemiparesis. TECHNIQUE: Spiral CT of the head was performed without contrast. Axial, coronal and sagittal images were reviewed. The dose-length product (DLP) for this examination was 681.00 mGy-cm. The exposure w as tailored according to patient size, and iterative reconstruction (ASIR) was used as additional dos e reduction technique. There is no prior study for comparison. FINDINGS: There is no acute intraparenchymal hemorrhage. No evidence of intraparenchymal brain mass lesion. No evidence of acute infarction. There is no mass effect or midline shift. The ventricles are normal in size. There are no extra-axial collections. There are no acute calvarial fractures. T he orbits are unremarkable. Soft tissue is unremarkable. The visualized sinuses and mastoid air robin ls are well aerated. IMPRESSION: 1. No acute intracranial findings. Reviewed, dictated and finalized at location A.
--- NOTE | ~2020-02-17 | CT_ITS ---
EXAMINATION: CT cervical spine wo con EXAM DATE: 02/17/2020 20:09 INDICATION: Visual changes, right arm weakness. TECHNIQUE: Spiral CT of the cervical spine was performed without contrast. Axial images were reviewe d. Coronal and sagittal reformatted images were also reviewed. The dose-length product (DLP) for thi s examination was 456.81 mGy-cm. The exposure was tailored according to patient size (auto mA exposu re control), and iterative reconstruction (ASIR) was used as additional dose reduction technique. ere is no prior study for comparison. FINDINGS: There is moderate disc disease at C5-6 level with mild kyphosis centered at this level, pos terior disc osteophyte complex causing mild central canal stenosis. There is mild to moderate bilater al neural foraminal stenosis at C5-6. Otherwise only mild cervical spondylosis. There is no evidence of acute cervical fracture. The odontoid process is intact. Pre-dens space is normal. Prevertebral soft tissue is normal. There are no soft tissue abnormalities identified. There is no disc space w idening or traumatic vertebral body subluxation suspected. IMPRESSION: C5-6 moderate disc disease. Otherwise relatively mild cervical spondylosis. . Reviewed, dictated and finalized at location A. IMPRESSION: C5-6 moderate disc disease. Otherwise relatively mild cervical spon dylosis. .
[2020-02-17 18:46] VITALS: BP 177/83; PULSE 100; RESP 18; TEMP 36.1; O2SAT 98
--- NOTE | 2020-02-17 19:49 | ECG_ITS ---
Measurements Intervals [place] Rate: 98 P: 53 [place]: 142 QRS: 26 QRSD: 98 T: 13 QT: 347 QTc: 443 Interpretive Statements SINUS RHYTHM POSSIBLE LEFT ATRIAL ENLARGEMENT NONSPECIFIC T-WAVE ABNORMALITY- INFERIOR LEADS BORDERLINE ECG Electronically Signed On 02-17-2020 20:23:15 CDT by Yonathan Ross D.O.
--- NOTE | 2020-02-17 19:50 | ED.GENADULT ---
HPI - General Adult General Chief complaint: Extremity Injury, Upper Stated complaint: right upper extremity pain Time Seen by Provider: 02/17/20 19:20 History of Present Illness HPI narrative: Patient presents with his friend for multiple complaints. The first is that he has right arm pain particularly in the elbow and the hand that extends up to the shoulder and the trapezius. It started a week ago with no known trauma. He said his hand swells and turns red. He says his hand is weak. He tells a story of having a left facial droop, and had a stroke work-up was no diagnosis given. Last year he had a positive troponin and had a cardiac cath which was normal. He sees a chiropractor on a regular basis. He says last night when he took his shoes off his feet were swollen and the toes were red. He says his previous hemoglobin A1c's were 7.5 and 6.3, but he has no medication for diabetes. Related Data Home Medications Medication Instructions Recorded Confirmed atenolol 100 mg PO DAILY 10/26/19 fluticasone propionate 2 spray INTRANASAL DAILY 10/26/19 diphenhydramine HCl 50 mg PO PRN PRN 12/31/19 albuterol sulfate [ProAir HFA] INHALATION 02/17/20 azelastine 02/17/20 citalopram mg 02/17/20 Allergies Allergy/AdvReac Type Severity Reaction Status Date / Time levofloxacin Allergy Mild Unknown Verified 02/17/20 19:07 lidocaine Allergy Mild Unknown Verified 02/17/20 19:07 Quinolones Allergy Mild Unknown Verified 02/17/20 19:07 Sulfa (Sulfonamide Allergy Mild RASH Verified 02/17/20 19:07 Antibiotics) sulfamethoxazole Allergy Mild RASH Verified 02/17/20 19:07 trimethoprim Allergy Mild RASH Verified 02/17/20 19:07 amlodipine Allergy Unknown HIVES Verified 02/17/20 19:07 azithromycin Allergy Unknown Unknown Verified 02/17/20 19:07 cephalexin Allergy Unknown Unknown Verified 02/17/20 19:07 flavoxate Allergy Unknown Unknown Verified 02/17/20 19:07 lisinopril Allergy Unknown HIVES Verified 02/17/20 19:07 losartan Allergy Unknown SWLLEING Verified 02/17/20 19:07 LIP AND HIVES nebivolol Allergy Unknown LIP Verified 02/17/20 19:07 SWELLING nitrofurantoin Allergy Unknown Unknown Verified 02/17/20 19:07 oxycodone Allergy Unknown Unknown Verified 02/17/20 19:07 paroxetine Allergy Unknown Unknown Verified 02/17/20 19:07 spironolactone Allergy Unknown RASH AND Verified 02/17/20 19:07 ITCHING valsartan Allergy Unknown HIVES/SOB Verified 02/17/20 19:07 IV CONTRAST Allergy Intermediate THROAT Uncoded 02/17/20 19:07 CLOSES, SWEATING IV PEPCID Allergy Intermediate SWEATING, Uncoded 02/17/20 19:07 HIVES Contrast Media Allergy Mild Unknown Uncoded 02/17/20 19:07 Review of Systems Review of Systems: Narrative: CONSTITUTIONAL: Denies fever, chills, or sweats. EYES: Denies redness, or discharge. Yesterday he had difficulty reading and when he turned to the side things went blurry. ENT: Denies rhinorrhea, congestion, sore throat, or otalgia. CARDIOVASCULAR: Denies chest pain, palpitations, or edema. RESPIRATORY: Denies cough or dyspnea. GASTROINTESTINAL: Denies abdominal pain, nausea, vomiting, or diarrhea. GENITOURINARY: Denies dysuria or hematuria. SKIN: Denies rash or itching. MUSCULOSKELETAL: Denies back pain, but has joint pain, and myalgia. In his right arm. NEUROLOGIC: Denies headache, numbness, or weakness. PSYCHIATRIC: Denies anxiety or depression. [facility] Past Medical History Medical History Anemia Anxiety Asthma CAD (coronary artery disease) Concussion Depression Diverticulitis Fracture nose, ribs, right knee, thumb, hand, neck GERD (gastroesophageal reflux disease) Heart attack HTN (hypertension) Hyperlipidemia Kidney stone Pleurisy Sinus problem Sleep apnea 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ory Surgical History H/O gastric bypass History of cardiac cath History of [place]
[2020-02-17 20:09] LABS: Basophils Percent Auto 0.1 % (0.2-1.2); Hematocrit 43.9 % (42.0-52.0); Hemoglobin 14.5 g/dL (14.0-18.0); Immature Granulocyte Absolute 0.02 K/mm3 (0.00-0.031); Immature Granulocyte Percent A 0.2 % (0-0.5); Lymphocytes Absolute Auto 1.11 K/mm3 (0.9-3.2); Lymphocytes Percent Auto 13.8 % (18.3-44.2); Mean Corpuscular Hemoglobin 24.8 pg (26-34); Mean Corpuscular Volume 75.2 fl (80-100); Mean Platelet Volume 9.7 fl (7.4-10.4); Monocytes Absolute Auto 0.2 K/mm3 (0.1-0.6); Monocytes Percent Auto 2.4 % (2.6-8.5); Neutrophils Absolute Auto 6.7 K/mm3 (1.3-6.7); Neutrophils Percent Auto 83.5 % (45.5-73.1); Platelet Count Result 226 k/mm3 (150-375); Red Blood Count 5.84 M/mm3 (4.6-6.20); Red Cell Distribution Width 15.9 % (11.5-14.5); White Blood Count 8.1 K/mm3 (4.5-10.0)
[2020-02-17 20:19] LABS: Creatine Kinase 207 U/L (55-170)
[2020-02-17 20:20] LABS: Ethanol < 10 mg/dL (<10)
[2020-02-17 20:21] LABS: Alanine Aminotransferase 48 U/L (4-50); Albumin Level 4.8 g/dL (3.5-5.1); Alkaline Phosphatase 93 U/L (38-126); Aspartate Amino Transferase 51 U/L (17-59); Bilirubin,Total 1.8 mg/dL (0.2-1.3); Blood Urea Nitrogen 16 mg/dL (9-20); Calcium 9.5 mg/dL (8.4-10.2); Carbon Dioxide 26 mmol/L (22-30); Chloride 103 mmol/L (98-107); Estimated CRCL calculation 137 ml/min; Estimated Glomerular Filt Rate > 60; Glucose 250 mg/dL (75-110); Potassium 3.7 mmol/L (3.4-5.0); Sodium 140 mmol/L (137-145)
[2020-02-17 20:27] VITALS: BP 154/80; PULSE 99; RESP 15; TEMP 36.7; O2SAT 96
[2020-02-17 20:29] LABS: NT Pro B Type Natriuretic Pept 123 PG/ML (5-100)
[2020-02-17 20:33] LABS: Troponin I < 0.012 ng/mL (0.000-0.034)
[2020-02-17 20:55] VITALS: BP 154/80; PULSE 97; RESP 15; TEMP 36.7; O2SAT 95
== END 2020-02-17 20:55 | disposition home or self-care (01) ==
PROVIDERS: Emergency Provider Emergency Medicine
DX: M50.122 Cervical disc disorder at C5-C6 level with radiculopathy (principal); E11.65 Type 2 diabetes mellitus with hyperglycemia; R60.9 Edema, unspecified; J45.909 Unspecified asthma, uncomplicated; I25.10 Atherosclerotic heart disease of native coronary artery without angina pectoris; K21.9 Gastro-esophageal reflux disease without esophagitis; E78.5 Hyperlipidemia, unspecified; G47.30 Sleep apnea, unspecified; I10 Essential (primary) hypertension; I25.2 Old myocardial infarction; Z86.2 Personal history of diseases of the blood and blood-forming organs and certain disorders involving the immune mechanism; F32.9 Major depressive disorder, single episode, unspecified; F41.9 Anxiety disorder, unspecified; Z98.84 Bariatric surgery status; Z87.442 Personal history of urinary calculi; M50.922 Unspecified cervical disc disorder at C5-C6 level; R94.31 Abnormal electrocardiogram [ECG] [EKG]
CPT/HCPCS: 36415; 70450; 72125; 80053; 80307; 82550; 83880; 84484; 85025; 93005; 99284

== ENCOUNTER 2020-03-01 09:36 | Emergency (ER) | payer OTHER, SELFPAY ==
--- NOTE | ~2020-03-01 | XR_ITS ---
EXAMINATION: XR elbow RT min 3V DATE: 03/01/2020 10:06 INDICATION: Right elbow swelling. TECHNIQUE: 4 views of right elbow were obtained. COMPARISON: None. FINDINGS: Bone alignment is normal. No fracture. Joint spaces are well maintained. There is posterior elbow soft tissue swelling, consistent with olecranon bursitis. IMPRESSION: 1. Olecranon bursitis. Reviewed, dictated and finalized at location A. IMPRESSION: 1. Olecranon bursitis.
[2020-03-01 09:50] VITALS: BP 168/94; PULSE 82; RESP 16; TEMP 36.7; O2SAT 98
--- NOTE | 2020-03-01 09:59 | ED.UPPEXIN ---
HPI - Extremity Injury (Upper) General Chief Complaint: Extremity Injury, Upper Stated Complaint: right arm pain Time Seen by Provider: 03/01/20 09:45 Source: patient Mode of arrival: ambulatory Limitations: no limitations History of Present Illness HPI narrative: Carlos Mcgee is a 50 yo male with a PMH of hypertension, diabetes, comes to [facility] with recurrent complaints of right arm pain just distal to the elbow. He has seen ER times to his primary care doc and has scheduled for appointment with orthopedics in 10 days, has taken muscle relaxants prednisone and [place] from his primary. He feels that his arm is somewhat swollen and is painful Related Data Home Medications Medication Instructions Recorded Confirmed atenolol 100 mg PO DAILY 10/26/19 fluticasone propionate 2 spray INTRANASAL DAILY 10/26/19 diphenhydramine HCl 50 mg PO PRN PRN 12/31/19 albuterol sulfate [ProAir HFA] INHALATION 02/17/20 azelastine 02/17/20 citalopram mg 02/17/20 Allergies Allergy/AdvReac Type Severity Reaction Status Date / Time levofloxacin Allergy Mild Unknown Verified 02/17/20 19:07 lidocaine Allergy Mild Unknown Verified 02/17/20 19:07 Quinolones Allergy Mild Unknown Verified 02/17/20 19:07 Sulfa (Sulfonamide Allergy Mild RASH Verified 02/17/20 19:07 Antibiotics) sulfamethoxazole Allergy Mild RASH Verified 02/17/20 19:07 trimethoprim Allergy Mild RASH Verified 02/17/20 19:07 amlodipine Allergy Unknown HIVES Verified 02/17/20 19:07 azithromycin Allergy Unknown Unknown Verified 02/17/20 19:07 cephalexin Allergy Unknown Unknown Verified 02/17/20 19:07 flavoxate Allergy Unknown Unknown Verified 02/17/20 19:07 lisinopril Allergy Unknown HIVES Verified 02/17/20 19:07 losartan Allergy Unknown SWLLEING Verified 02/17/20 19:07 LIP AND HIVES nebivolol Allergy Unknown LIP Verified 02/17/20 19:07 SWELLING nitrofurantoin Allergy Unknown Unknown Verified 02/17/20 19:07 oxycodone Allergy Unknown Unknown Verified 02/17/20 19:07 paroxetine Allergy Unknown Unknown Verified 02/17/20 19:07 spironolactone Allergy Unknown RASH AND Verified 02/17/20 19:07 ITCHING valsartan Allergy Unknown HIVES/SOB Verified 02/17/20 19:07 IV CONTRAST Allergy Intermediate THROAT Uncoded 02/17/20 19:07 CLOSES, SWEATING IV PEPCID Allergy Intermediate SWEATING, Uncoded 02/17/20 19:07 HIVES Contrast Media Allergy Mild Unknown Uncoded 02/17/20 19:07 Review of Systems Review of Systems: Narrative: CONSTITUTIONAL: Denies fever, chills, sweats. EYES: Denies visual changes, redness, discharge. ENT: Denies rhinorrhea, congestion, sore throat, otalgia. CARDIOVASCULAR: Denies chest pain, palpitations, edema. RESPIRATORY: Denies dyspnea, wheezing, cough GASTROINTESTINAL: Denies abdominal pain, nausea, vomiting, diarrhea. GENITOURINARY: Denies dysuria, hematuria, abnormal discharge SKIN: Denies rash or itching. NEUROLOGIC: Denies numbness, or focal weakness. PSYCHIATRIC: Denies anxiety or depression. Right arm pain, distal to elbow PMFSH Past Medical History Medical History Anemia Anxiety Asthma CAD (coronary artery disease) Concussion Depression Diverticulitis Fracture nose, ribs, right knee, thumb, hand, neck GERD (gastroesophageal reflux disease) Heart attack HTN (hypertension) Hyperlipidemia Kidney stone Pleurisy Sinus problem Sleep apnea 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 Hypertension Diabetes mellitus Mother Depression Patient's mother is in good health Family history of mental disorder Father Hypertension Patient's father is in good health Family
== END 2020-03-01 10:36 | disposition home or self-care (01) ==
PROVIDERS: Emergency Provider Nurse Practitioner
DX: M70.31 Other bursitis of elbow, right elbow (principal); E11.9 Type 2 diabetes mellitus without complications; I10 Essential (primary) hypertension; Z86.2 Personal history of diseases of the blood and blood-forming organs and certain disorders involving the immune mechanism; J45.909 Unspecified asthma, uncomplicated; I25.10 Atherosclerotic heart disease of native coronary artery without angina pectoris; F41.9 Anxiety disorder, unspecified; F32.9 Major depressive disorder, single episode, unspecified; K21.9 Gastro-esophageal reflux disease without esophagitis; I25.2 Old myocardial infarction; E78.5 Hyperlipidemia, unspecified; Z87.442 Personal history of urinary calculi; G47.30 Sleep apnea, unspecified; Z98.84 Bariatric surgery status; Z87.891 Personal history of nicotine dependence
CPT/HCPCS: 73080; 99213; A4565; G0463

== ENCOUNTER 2020-03-11 19:24 | Emergency (ER) | payer OTHER, SELFPAY ==
[2020-03-11 19:46] VITALS: BP 155/91; PULSE 74; RESP 16; TEMP 37.2; O2SAT 97
--- NOTE | 2020-03-11 19:58 | ED.GENADULT ---
HPI - General Adult General Chief complaint: Upper Respiratory Infection Stated complaint: possible sinus infection Time Seen by Provider: 03/11/20 19:58 Source: patient and RN notes reviewed Mode of arrival: ambulatory Limitations: no limitations History of Present Illness HPI narrative: This is a 50 years old male presented office for evaluations of possible sinus infection. Symptoms began 3 to 4 days ago with watery eyes, stuffy nose, ear clogged, and scratchy throat. He also reported chills and sweats. He has tried Benadryl, nasal spray for his sinus symptoms. He also would like me to check a sore/lesions on his right thigh, he claimed that his family doctor did not want to look at him when he saw him early this morning. He said the sore started as a 2 blister which he had a picture of it. He said the lesion was itchy at first but not currently. He has been putting Neosporin on affected site. Related Data Home Medications Medication Instructions Recorded Confirmed atenolol 100 mg PO DAILY 10/26/19 03/11/20 fluticasone propionate 2 spray INTRANASAL DAILY 10/26/19 03/11/20 diphenhydramine HCl 50 mg PO PRN PRN 12/31/19 03/11/20 albuterol sulfate [ProAir HFA] 2 inh INHALATION Q4-6H PRN 02/17/20 03/11/20 citalopram 20 mg DAILY 02/17/20 03/11/20 Allergies Allergy/AdvReac Type Severity Reaction Status Date / Time levofloxacin Allergy Mild Unknown Verified 03/11/20 19:34 lidocaine Allergy Mild Unknown Verified 03/11/20 19:34 Quinolones Allergy Mild Unknown Verified 03/11/20 19:34 Sulfa (Sulfonamide Allergy Mild RASH Verified 03/11/20 19:34 Antibiotics) sulfamethoxazole Allergy Mild RASH Verified 03/11/20 19:34 trimethoprim Allergy Mild RASH Verified 03/11/20 19:34 amlodipine Allergy Unknown HIVES Verified 03/11/20 19:34 azithromycin Allergy Unknown Unknown Verified 03/11/20 19:34 cephalexin Allergy Unknown Unknown Verified 03/11/20 19:34 flavoxate Allergy Unknown Unknown Verified 03/11/20 19:34 lisinopril Allergy Unknown HIVES Verified 03/11/20 19:34 losartan Allergy Unknown SWLLEING Verified 03/11/20 19:34 LIP AND HIVES nebivolol Allergy Unknown LIP Verified 03/11/20 19:34 SWELLING nitrofurantoin Allergy Unknown Unknown Verified 03/11/20 19:34 oxycodone Allergy Unknown Unknown Verified 03/11/20 19:34 paroxetine Allergy Unknown Unknown Verified 03/11/20 19:34 spironolactone Allergy Unknown RASH AND Verified 03/11/20 19:34 ITCHING valsartan Allergy Unknown HIVES/SOB Verified 03/11/20 19:34 IV CONTRAST Allergy Intermediate THROAT Uncoded 03/11/20 19:34 CLOSES, SWEATING IV PEPCID Allergy Intermediate SWEATING, Uncoded 03/11/20 19:34 HIVES Contrast Media Allergy Mild Unknown Uncoded 03/11/20 19:34 Review of Systems Review of Systems: Narrative: CONSTITUTIONAL: Denies fever. Reports chills and sweats. EYES: Denies visual changes ENT:Reports sinus congestion, and drainage CARDIOVASCULAR: Denies chest pain RESPIRATORY: Denies dyspnea, cough GASTROINTESTINAL: Denies abdominal pain, vomiting, diarrhea. Reports chronic nausea SKIN: Reports two lesions on right thigh MUSCULOSKELETAL: Reports generalize fatigue NEUROLOGIC: Denies lightheaded/dizziness All other systems reviewed are negative, except as documented in HPI. PMFSH Social History Social History (Updated 03/01/20 @ 10:03 by Tatyana Hamilton CNP) Smoking status: Former smoker Smoking end date: 09/13/11 Alcohol intake: former Gender identity (if verbalized by the patient): Male Comments At time of signature, I agree with nursing past medical, surgical, social and family history. There is no relevant family history pertinent to the presenting complaint. Exam Narrative: Exam Narrative: GENERAL: This is a well-nourished, well-developed patient, in no apparent distress. EYES: PERRL. EMOI. Sclera clear/white. Vision is grossly intact. EARS: External ears normal, auditory canals clear and without drainage, TMs normal wit
== END 2020-03-11 20:16 | disposition home or self-care (01) ==
PROVIDERS: Emergency Provider Nurse Practitioner
DX: J32.9 Chronic sinusitis, unspecified (principal); L98.9 Disorder of the skin and subcutaneous tissue, unspecified; E78.00 Pure hypercholesterolemia, unspecified; I10 Essential (primary) hypertension
CPT/HCPCS: 99213; G0463

== ENCOUNTER 2020-04-19 22:40 | Emergency (ER) | payer OTHER, SELFPAY ==
--- NOTE | ~2020-04-19 | XR_ITS ---
EXAMINATION: XR chest 2V EXAM DATE: 04/19/2020 23:08 INDICATION: Left-sided chest pain. TECHNIQUE: Frontal and lateral projections of the chest obtained and reviewed. There is no prior joseph dy for comparison. FINDINGS: The lungs are clear. There are no pleural effusions. The cardiomediastinal silhouette is within normal limits. There is no pneumothorax suspected. The bones and soft tissues are unremarkab le. IMPRESSION: No acute cardiopulmonary findings. Reviewed, dictated and finalized at location A.
[2020-04-19 22:43] VITALS: BP 177/97; PULSE 69; RESP 20; TEMP 36.7; O2SAT 97
--- NOTE | 2020-04-19 22:48 | ECG_ITS ---
Measurements Intervals [place] Rate: 70 P: 41 IA: 147 QRS: 36 QRSD: 101 T: 26 QT: 321 QTc: 347 Interpretive Statements SINUS RHYTHM POSSIBLE LEFT ATRIAL ENLARGEMENT NONSPECIFIC T-WAVE ABNORMALITY- INFERIOR LEADS BASELINE ARTIFACT- I, II, AVR, V3-V6 BORDERLINE ECG Electronically Signed On 04-20-2020 8:08:41 CDT by Yonathan Ross D.O.
[2020-04-19 23:14] LABS: Basophils Percent Auto 0.6 % (0.2-1.2); Eosinophils Percent Auto 0.3 % (0-4.4); Hematocrit 44.3 % (42.0-52.0); Hemoglobin 14.4 g/dL (14.0-18.0); Immature Granulocyte Absolute 0.04 K/mm3 (0.00-0.031); Immature Granulocyte Percent A 0.6 % (0-0.5); Lymphocytes Absolute Auto 1.64 K/mm3 (0.9-3.2); Lymphocytes Percent Auto 23.1 % (18.3-44.2); Mean Corpuscular HGB Conc 32.5 g/dl (32-36); Mean Corpuscular Hemoglobin 24.8 pg (26-34); Mean Corpuscular Volume 76.2 fl (80-100); Mean Platelet Volume 9.4 fl (7.4-10.4); Monocytes Absolute Auto 0.4 K/mm3 (0.1-0.6); Monocytes Percent Auto 5.8 % (2.6-8.5); Neutrophils Absolute Auto 4.9 K/mm3 (1.3-6.7); Neutrophils Percent Auto 69.6 % (45.5-73.1); Platelet Count Result 198 k/mm3 (150-375); Red Blood Count 5.81 M/mm3 (4.6-6.20); Red Cell Distribution Width 15.9 % (11.5-14.5); White Blood Count 7.1 K/mm3 (4.5-10.0)
[2020-04-19] MEDS: ASPIRIN 81 MG CHEWABLE TABLET 324 MG PO (23:17)
[2020-04-19 23:26] LABS: Anion Gap 9 mmol/L (8-16); Blood Urea Nitrogen 22 mg/dL (9-20); Calcium 9.1 mg/dL (8.4-10.2); Carbon Dioxide 29 mmol/L (22-30); Chloride 100 mmol/L (98-107); Estimated CRCL calculation 157 ml/min; Estimated Glomerular Filt Rate > 60; Glucose 263 mg/dL (75-110); Potassium 3.9 mmol/L (3.4-5.0); Sodium 138 mmol/L (137-145)
[2020-04-19 23:34] LABS: INR 1.1; Prothrombin Time 13.5 Seconds (11.1-14.7)
[2020-04-19 23:35] LABS: Partial Thromboplastin Time 31.9 SECONDS (22.3-36.8)
[2020-04-19 23:38] LABS: Troponin I < 0.012 ng/mL (0.000-0.034)
--- NOTE | 2020-04-20 00:13 | ED.ASTHMA ---
HPI - Asthma General Chief Complaint: Chest Pain Stated Complaint: SOB for several seeks, COVID neg Time Seen by Provider: 04/20/20 00:03 History of Present Illness HPI Narrative: Patient presents with a friend for increasing asthma. He says his pain is 8 out of 10 from the coughing, and points to both lower rib cage. He says he also hurts on his anterior left chest wall. She took amoxicillin that he had at home, and some leftover prednisone 4 mg. Now his blood sugar is 263. He does not take diabetic medicine. He has intermittent wheezing, and says his albuterol inhaler is not helping. He recently had a negative COVID test. MD complaint: asthma attack , shortness of breath and wheezing Onset (ago): day(s) Severity: moderate Associated symptoms: productive cough and chest pain Treatments Prior to Arrival: inhaled bronchodilator Related Data Current Asthma Therapy: inhaled bronchodilator and recent oral steroid Home Medications Medication Instructions Recorded Confirmed atenolol 100 mg PO DAILY 10/26/19 03/11/20 fluticasone propionate 2 spray INTRANASAL DAILY 10/26/19 03/11/20 diphenhydramine HCl 50 mg PO PRN PRN 12/31/19 03/11/20 albuterol sulfate [ProAir HFA] 2 inh INHALATION Q4-6H PRN 02/17/20 03/11/20 citalopram 20 mg DAILY 02/17/20 03/11/20 Allergies Allergy/AdvReac Type Severity Reaction Status Date / Time levofloxacin Allergy Mild Unknown Verified 03/11/20 19:34 lidocaine Allergy Mild Unknown Verified 03/11/20 19:34 Quinolones Allergy Mild Unknown Verified 03/11/20 19:34 Sulfa (Sulfonamide Allergy Mild RASH Verified 03/11/20 19:34 Antibiotics) sulfamethoxazole Allergy Mild RASH Verified 03/11/20 19:34 trimethoprim Allergy Mild RASH Verified 03/11/20 19:34 amlodipine Allergy Unknown HIVES Verified 03/11/20 19:34 azithromycin Allergy Unknown Unknown Verified 03/11/20 19:34 cephalexin Allergy Unknown Unknown Verified 03/11/20 19:34 flavoxate Allergy Unknown Unknown Verified 03/11/20 19:34 lisinopril Allergy Unknown HIVES Verified 03/11/20 19:34 losartan Allergy Unknown SWLLEING Verified 03/11/20 19:34 LIP AND HIVES nebivolol Allergy Unknown LIP Verified 03/11/20 19:34 SWELLING nitrofurantoin Allergy Unknown Unknown Verified 03/11/20 19:34 oxycodone Allergy Unknown Unknown Verified 03/11/20 19:34 paroxetine Allergy Unknown Unknown Verified 03/11/20 19:34 spironolactone Allergy Unknown RASH AND Verified 03/11/20 19:34 ITCHING valsartan Allergy Unknown HIVES/SOB Verified 03/11/20 19:34 IV CONTRAST Allergy Intermediate THROAT Uncoded 03/11/20 19:34 CLOSES, SWEATING IV PEPCID Allergy Intermediate SWEATING, Uncoded 03/11/20 19:34 HIVES Contrast Media Allergy Mild Unknown Uncoded 03/11/20 19:34 Review of Systems Review of Systems: Narrative: CONSTITUTIONAL: Denies fever, chills, or sweats. EYES: Denies visual changes, redness, or discharge. ENT: Denies rhinorrhea, congestion, sore throat, or otalgia. CARDIOVASCULAR: He has chest pain, but not palpitations, or edema. RESPIRATORY: He has cough and dyspnea. GASTROINTESTINAL: Denies abdominal pain, nausea, vomiting, or diarrhea. GENITOURINARY: Denies dysuria or hematuria. SKIN: Denies rash or itching. MUSCULOSKELETAL: Denies back pain, joint pain, or myalgia. NEUROLOGIC: Denies headache, numbness, or weakness. PSYCHIATRIC: Denies anxiety or depression. All systems reviewed & are unremarkable except as noted in HPI and below PMFSH Past Medical History Medical History Anemia Anxiety Asthma CAD (coronary artery disease) Concussion Depression Diverticulitis Fracture nose, ribs, right knee, thumb, hand, neck GERD (gastroesophageal reflux disease) Heart attack HTN (hypertension) Hyperlipidemia Kidney stone Pleurisy Sinus problem Sleep apnea 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ory Surgical History H/O gastric bypass
[2020-04-20] MEDS: predniSONE 20 MG TABLET 40 MG PO (00:22)
[2020-04-20 00:28] VITALS: PULSE 59; RESP 18
[2020-04-20] MEDS: ALBUTEROL SULFATE NEB 2.5 MG/0.5 ML INH 5 MG INHALATION (00:28)
[2020-04-20 00:48] LABS: Alveolar/Arterial O2 Gradient 21.9 mmHg; Base Excess ABG 4.1 mEq/l (+/-2.0); Fractional Inspired Oxygen 21 %; HCO3 ABG 28.5 mEq/l (22.0-26.0); Oxygen Content ABG 19.6 %vol (16.0-22.0); Oxygen Saturation ABG 96.1 % (95.0-100.0); Oxyhemoglobin 94.7 % THb (90.0-100.0); PCO2 ABG 41.5 mmHg (35.0-45.0); PO2 ABG 78.1 mmHg (80.0-100.0); PO2 FiO2 Ratio Arterial Blood 3.72 %; Total Hemoglobin 14.7 g/dL (12.0-18.0); pH ABG 7.454 (7.350-7.450)
[2020-04-20 00:49] LABS: Device ROOM AIR; Modified Allen's Test Pass; Site Drawn LEFT RADIAL
[2020-04-20 00:58] VITALS: BP 156/92; PULSE 89; RESP 18; O2SAT 97
[2020-04-20 01:46] VITALS: BP 154/98; PULSE 75; RESP 16; TEMP 36.7; O2SAT 97
--- NOTE | 2020-04-20 02:27 | PC.NURSE ---
Addendum entered by Chyna Castro RN 04/20/20 02:48: Dr. Hatch made aware. Original Note: Eunice from [facility] in [place]/Aayush Horvath , calling to confirm pt Rx of Medrol Dose pack.
== END 2020-04-20 01:47 | disposition home or self-care (01) ==
PROVIDERS: Emergency Provider Emergency Medicine
DX: J45.901 Unspecified asthma with (acute) exacerbation (principal); R07.89 Other chest pain; E66.3 Overweight; Z68.35 Body mass index [BMI] 35.0-35.9, adult; I25.10 Atherosclerotic heart disease of native coronary artery without angina pectoris; K21.9 Gastro-esophageal reflux disease without esophagitis; Z87.442 Personal history of urinary calculi; I25.2 Old myocardial infarction; G47.30 Sleep apnea, unspecified; Z98.84 Bariatric surgery status; Z87.891 Personal history of nicotine dependence; F41.9 Anxiety disorder, unspecified; F32.9 Major depressive disorder, single episode, unspecified
CPT/HCPCS: 36415; 36600; 71046; 80048; 82805; 84484; 85025; 85610; 85730; 93005; 94640; 99284; A9270; J7512

== ENCOUNTER 2020-05-15 23:02 | Emergency (ER) | payer OTHER, SELFPAY ==
--- NOTE | 2020-05-15 23:39 | PC.NURSE ---
AT 2324 ON 05/15/2020 PT APPROACHES INTAKE DESK AND HANDS HIS PT WRISTBAND TO THIS FAMILY RESOURCE COORDINATOR AND STATES I'M JUST GONNA GO TO URGENT CARE IN THE MORNING . PT VISUALIZED BY THIS RN AMBULATE WITH A STEADY GAIT OUT OF ED ENTRANCE TO THE ED PARKING LOT.
== END 2020-05-15 23:39 | disposition left against medical advice (07) ==
LOC: ANHED 23:49
DX: Z53.21 Procedure and treatment not carried out due to patient leaving prior to being seen by health care provider (principal)
CPT/HCPCS: 99199

== ENCOUNTER 2020-06-09 18:26 | Emergency (ER) | payer OTHER, SELFPAY ==
[2020-06-09 18:39] VITALS: BP 152/86; PULSE 70; RESP 16; TEMP 36.7; O2SAT 99
--- NOTE | 2020-06-09 18:53 | ED.URI ---
HPI - URI/Sore Throat General Chief Complaint: Ear Stated Complaint: possible sinus infection Time Seen by Provider: 06/09/20 18:40 Source: patient and RN notes reviewed Mode of arrival: ambulatory Limitations: no limitations History of Present Illness HPI Narrative: Patient presents today complaining of bilateral ear pressure, right greater than left, scratchy throat, frontal headache. Patient has been using swimmer's ear drops, Sudafed, Benadryl without relief. He also uses Flonase daily. Patient states he believes he has a sinus infection. His EMR shows that he was recently on amoxicillin starting on 05/17/2020, Cipro and Flagyl starting on 05/24/2020. He has an appointment to follow-up with pulmonology for asthma flares in June. MD elicited complaint: sinus pain and other (Ear pain) Related Data Home Medications Medication Instructions Recorded Confirmed atenolol 100 mg PO DAILY 10/26/19 06/09/20 fluticasone propionate 2 spray INTRANASAL DAILY 10/26/19 06/09/20 diphenhydramine HCl 50 mg PO PRN PRN 12/31/19 06/09/20 albuterol sulfate [ProAir HFA] 2 inh INHALATION Q4-6H PRN 02/17/20 06/09/20 citalopram 20 mg PO DAILY 02/17/20 06/09/20 omeprazole 40 mg PO DAILY 06/09/20 06/09/20 Allergies Allergy/AdvReac Type Severity Reaction Status Date / Time levofloxacin Allergy Mild Unknown Verified 03/11/20 19:34 lidocaine Allergy Mild Unknown Verified 03/11/20 19:34 Quinolones Allergy Mild Unknown Verified 03/11/20 19:34 Sulfa (Sulfonamide Allergy Mild RASH Verified 03/11/20 19:34 Antibiotics) sulfamethoxazole Allergy Mild RASH Verified 03/11/20 19:34 trimethoprim Allergy Mild RASH Verified 03/11/20 19:34 amlodipine Allergy Unknown HIVES Verified 03/11/20 19:34 azithromycin Allergy Unknown Unknown Verified 03/11/20 19:34 cephalexin Allergy Unknown Unknown Verified 03/11/20 19:34 flavoxate Allergy Unknown Unknown Verified 03/11/20 19:34 lisinopril Allergy Unknown HIVES Verified 03/11/20 19:34 losartan Allergy Unknown SWLLEING Verified 03/11/20 19:34 LIP AND HIVES nebivolol Allergy Unknown LIP Verified 03/11/20 19:34 SWELLING nitrofurantoin Allergy Unknown Unknown Verified 03/11/20 19:34 oxycodone Allergy Unknown Unknown Verified 03/11/20 19:34 paroxetine Allergy Unknown Unknown Verified 03/11/20 19:34 spironolactone Allergy Unknown RASH AND Verified 03/11/20 19:34 ITCHING valsartan Allergy Unknown HIVES/SOB Verified 03/11/20 19:34 IV CONTRAST Allergy Intermediate THROAT Uncoded 03/11/20 19:34 CLOSES, SWEATING IV PEPCID Allergy Intermediate SWEATING, Uncoded 03/11/20 19:34 HIVES Contrast Media Allergy Mild Unknown Uncoded 03/11/20 19:34 Review of Systems Review of Systems: Narrative: CONSTITUTIONAL: Denies body aches, fever, chills, or sweats. EYES: Denies visual changes, redness, or discharge. ENT: Denies rhinorrhea, congestion, sore throat. + Ear pressure, scratchy throat, sinus pressure CARDIOVASCULAR: Denies chest pain, palpitations, or edema. RESPIRATORY: Denies cough or dyspnea. GASTROINTESTINAL: Denies abdominal pain, nausea, vomiting, or diarrhea. GENITOURINARY: Denies dysuria or hematuria. SKIN: Denies rash, itching, or wounds. MUSCULOSKELETAL: Denies back pain, joint pain, or myalgia. NEUROLOGIC: Denies numbness, tingling, or weakness. +frontal headache PSYCH: Denies depression or anxiety. PMFSH Social History Social History Smoking status: Former smoker Smoking end date: 09/13/11 Alcohol intake: former Gender identity (if verbalized by the patient): Male Comments At time of signature, I have reviewed and agree with nursing past medical, surgical, social and family history unless otherwise noted. Please see nursing chart for further information. There is no relevant family history pertinent to the presenting complaint Exam Narrative: Exam Narrative: GENERAL: Well-appearing, well-nourished, and in no acute distre
== END 2020-06-09 18:58 | disposition home or self-care (01) ==
PROVIDERS: Emergency Provider Nurse Practitioner
DX: H65.01 Acute serous otitis media, right ear (principal); Z87.891 Personal history of nicotine dependence; J45.909 Unspecified asthma, uncomplicated; E78.00 Pure hypercholesterolemia, unspecified; I10 Essential (primary) hypertension; K21.9 Gastro-esophageal reflux disease without esophagitis; E11.9 Type 2 diabetes mellitus without complications; F41.9 Anxiety disorder, unspecified; F32.9 Major depressive disorder, single episode, unspecified
CPT/HCPCS: 99213; G0463

== ENCOUNTER 2020-06-12 19:01 | Emergency (ER) | payer OTHER, SELFPAY ==
[2020-06-12 19:10] VITALS: BP 135/80; PULSE 65; RESP 16; TEMP 36.1; O2SAT 97
--- NOTE | 2020-06-12 19:21 | ED.EAR ---
HPI - Ear Problem General Chief complaint: Ear Stated complaint: Ear pain Time Seen by Provider: 06/12/20 19:21 Source: patient Mode of arrival: ambulatory Limitations: no limitations History of Present Illness HPI Narrative: Carlos Mcgee is a 50 yo male with a PMH of copd, anxiety. seasonal allergies,GERD. who was seen here on Wednesday for complaints of bilateral ear pain and was given prednisone Benadryl and Sudafed. Patient called this morning about his medication and feeling spacey and confused on the medication and recommended that he discontinue the Benadryl in combination with sudafed; however he is insistent that he needs additional medication and patient is now arrived at the [facility] to be reexamined Related Data Home Medications Medication Instructions Recorded Confirmed atenolol 100 mg PO DAILY 10/26/19 06/09/20 fluticasone propionate 2 spray INTRANASAL DAILY 10/26/19 06/09/20 diphenhydramine HCl 50 mg PO PRN PRN 12/31/19 06/09/20 albuterol sulfate [ProAir HFA] 2 inh INHALATION Q4-6H PRN 02/17/20 06/09/20 citalopram 20 mg PO DAILY 02/17/20 06/09/20 omeprazole 40 mg PO DAILY 06/09/20 06/09/20 Allergies Allergy/AdvReac Type Severity Reaction Status Date / Time levofloxacin Allergy Mild Unknown Verified 03/11/20 19:34 lidocaine Allergy Mild Unknown Verified 03/11/20 19:34 Quinolones Allergy Mild Unknown Verified 03/11/20 19:34 Sulfa (Sulfonamide Allergy Mild RASH Verified 03/11/20 19:34 Antibiotics) sulfamethoxazole Allergy Mild RASH Verified 03/11/20 19:34 trimethoprim Allergy Mild RASH Verified 03/11/20 19:34 amlodipine Allergy Unknown HIVES Verified 03/11/20 19:34 azithromycin Allergy Unknown Unknown Verified 03/11/20 19:34 cephalexin Allergy Unknown Unknown Verified 03/11/20 19:34 flavoxate Allergy Unknown Unknown Verified 03/11/20 19:34 lisinopril Allergy Unknown HIVES Verified 03/11/20 19:34 losartan Allergy Unknown SWLLEING Verified 03/11/20 19:34 LIP AND HIVES nebivolol Allergy Unknown LIP Verified 03/11/20 19:34 SWELLING nitrofurantoin Allergy Unknown Unknown Verified 03/11/20 19:34 oxycodone Allergy Unknown Unknown Verified 03/11/20 19:34 paroxetine Allergy Unknown Unknown Verified 03/11/20 19:34 spironolactone Allergy Unknown RASH AND Verified 03/11/20 19:34 ITCHING valsartan Allergy Unknown HIVES/SOB Verified 03/11/20 19:34 IV CONTRAST Allergy Intermediate THROAT Uncoded 03/11/20 19:34 CLOSES, SWEATING IV PEPCID Allergy Intermediate SWEATING, Uncoded 03/11/20 19:34 HIVES Contrast Media Allergy Mild Unknown Uncoded 03/11/20 19:34 Review of Systems Review of Systems: Narrative: CONSTITUTIONAL: Denies fever, chills, sweats. EYES: Denies visual changes, redness, discharge. ENT: Denies rhinorrhea, has congestion, sore throat, bilateral otalgia. CARDIOVASCULAR: Denies chest pain, palpitations, edema. RESPIRATORY: Denies dyspnea, wheezing, cough GASTROINTESTINAL: Denies abdominal pain, nausea, vomiting, diarrhea. GENITOURINARY: Denies dysuria, hematuria, abnormal discharge SKIN: Denies rash or itching. NEUROLOGIC: Denies numbness, or focal weakness. PSYCHIATRIC: Denies anxiety or depression. [facility] Past Medical History Medical History Anemia Anxiety Asthma CAD (coronary artery disease) Concussion Depression Diverticulitis Fracture nose, ribs, right knee, thumb, hand, neck GERD (gastroesophageal reflux disease) Heart attack HTN (hypertension) Hyperlipidemia Kidney stone Pleurisy Sinus problem Sleep apnea 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ory Surgical History H/O gastric bypass History of cardiac cath History of colonoscopy Hx of cholecystectomy Social History Social History Smoking status: Former smoker Smoking end date: 09/13/11 Alcohol intake: former Gender
--- NOTE | 2020-06-12 19:26 | PC.NURSE ---
1910- Pt stated, all of his PMH was in the computer, would not verify.
--- NOTE | 2020-06-12 19:54 | PC.NURSE ---
1910- Pt very pleasant.
== END 2020-06-12 19:45 | disposition home or self-care (01) ==
PROVIDERS: Emergency Provider Nurse Practitioner
DX: J01.00 Acute maxillary sinusitis, unspecified (principal); Z87.891 Personal history of nicotine dependence; Z98.84 Bariatric surgery status; J45.909 Unspecified asthma, uncomplicated; I25.10 Atherosclerotic heart disease of native coronary artery without angina pectoris; K21.9 Gastro-esophageal reflux disease without esophagitis; I10 Essential (primary) hypertension; E78.5 Hyperlipidemia, unspecified; G47.30 Sleep apnea, unspecified; I25.2 Old myocardial infarction; F41.9 Anxiety disorder, unspecified
CPT/HCPCS: 99213; G0463

== ENCOUNTER 2020-06-25 18:57 | Emergency (ER) | payer OTHER, SELFPAY ==
--- NOTE | 2020-06-25 18:58 | ECG_ITS ---
Measurements Intervals [place] Rate: 76 P: -1 [place]: 140 QRS: 22 QRSD: 105 T: 36 QT: 374 QTc: 423 Interpretive Statements SINUS RHYTHM NONSPECIFIC T-WAVE ABNORMALITY- INFERIOR LEADS BASELINE ARTIFACT- III BORDERLINE ECG Electronically Signed On 06-25-2020 19:23:19 CDT by Yonathan Ross D.O.
== END 2020-06-25 19:10 | disposition left against medical advice (07) ==
PROVIDERS: Emergency Provider Emergency Medicine
DX: R94.31 Abnormal electrocardiogram [ECG] [EKG] (principal)
CPT/HCPCS: 93005; 99199

== ENCOUNTER 2020-07-31 19:38 | Emergency (ER) | payer OTHER, SELFPAY ==
--- NOTE | ~2020-07-31 | XR_ITS ---
EXAMINATION: XR chest 2V DATE: 07/31/2020 20:13 INDICATION: Difficulty breathing TECHNIQUE: PA and lateral views of the chest were obtained. COMPARISON: Chest radiograph dated 04/19/2020 FINDINGS: The lungs remain clear with no focal airspace opacities, pulmonary edema, pleural effusion or pneumot horax. The cardiomediastinal silhouette is normal. Mild upper thoracic levocurvature. Cholecystectomy clips in the upper abdomen. IMPRESSION: 1. No acute cardiopulmonary disease. Reviewed, dictated and finalized at location H. 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
--- NOTE | 2020-07-31 19:41 | ED.GENADULT ---
HPI - General Adult General Chief complaint: Upper Respiratory Infection Stated complaint: cold/flu Time Seen by Provider: 07/31/20 19:41 Source: patient Mode of arrival: ambulatory Limitations: no limitations History of Present Illness HPI narrative: 50-year-old male patient presents to the [facility] with complaints of cold symptoms for the past 10 days. Patient states it started off with scratchy throat and a cough. Patient states he has had some intermittent shortness of breath here and there does have history of asthma. Patient states he has been using his prescribed inhaler as needed. Patient states he did have a Covid test about 3 or 4 days ago and states it was a rapid test at [facility] which came back negative. Patient states he has been also taking some [id number] Benadryl and Tylenol for his symptoms. Patient states he is also been using Flonase but just ran out today. Patient states he is just been feeling overall weak and fatigued. Related Data Home Medications Medication Instructions Recorded Confirmed atenolol 100 mg PO DAILY 10/26/19 07/31/20 fluticasone propionate 2 spray INTRANASAL DAILY 10/26/19 07/31/20 diphenhydramine HCl 50 mg PO PRN PRN 12/31/19 07/31/20 albuterol sulfate [ProAir HFA] 2 inh INHALATION Q4-6H PRN 02/17/20 07/31/20 citalopram 20 mg PO DAILY 02/17/20 07/31/20 omeprazole 40 mg PO DAILY 06/09/20 07/31/20 Allergies Allergy/AdvReac Type Severity Reaction Status Date / Time Iodinated Contrast Media Allergy Severe Anaphylaxis Verified 06/25/20 19:06 famotidine Allergy Intermediate Hives Verified 06/25/20 19:07 levofloxacin Allergy Mild Unknown Verified 03/11/20 19:34 lidocaine Allergy Mild Unknown Verified 03/11/20 19:34 Quinolones Allergy Mild Unknown Verified 03/11/20 19:34 Sulfa (Sulfonamide Allergy Mild RASH Verified 03/11/20 19:34 Antibiotics) sulfamethoxazole Allergy Mild RASH Verified 03/11/20 19:34 trimethoprim Allergy Mild RASH Verified 03/11/20 19:34 amlodipine Allergy Unknown HIVES Verified 03/11/20 19:34 azithromycin Allergy Unknown Unknown Verified 03/11/20 19:34 cephalexin Allergy Unknown Unknown Verified 03/11/20 19:34 flavoxate Allergy Unknown Unknown Verified 03/11/20 19:34 lisinopril Allergy Unknown HIVES Verified 03/11/20 19:34 losartan Allergy Unknown SWLLEING Verified 03/11/20 19:34 LIP AND HIVES nebivolol Allergy Unknown LIP Verified 03/11/20 19:34 SWELLING nitrofurantoin Allergy Unknown Unknown Verified 03/11/20 19:34 oxycodone Allergy Unknown Unknown Verified 03/11/20 19:34 paroxetine Allergy Unknown Unknown Verified 03/11/20 19:34 spironolactone Allergy Unknown RASH AND Verified 03/11/20 19:34 ITCHING valsartan Allergy Unknown HIVES/SOB Verified 03/11/20 19:34 Review of Systems Review of Systems: Narrative: CONSTITUTIONAL: Denies fever, chills, or sweats. EYES: Denies visual changes, redness, or discharge. ENT: Positive rhinorrhea, congestion, sore throat, denies otalgia. CARDIOVASCULAR: Denies chest pain, palpitations, or edema. RESPIRATORY: Positive intermittent cough and dyspnea. GASTROINTESTINAL: Denies abdominal pain, nausea, vomiting, or diarrhea. GENITOURINARY: Denies dysuria or hematuria. SKIN: Denies rash or itching. MUSCULOSKELETAL: Denies back pain, joint pain, or myalgia. NEUROLOGIC: Denies headache, numbness, or weakness. PSYCHIATRIC: Denies anxiety or depression. [facility] Past Medical History Medical History (Updated 07/31/20 @ 20:48 by RAINA Joseph) Anemia Anxiety Asthma CAD (coronary artery disease) Concussion Depression Diverticulitis Fracture nose, ribs, right knee, thumb, hand, neck GERD (gastroesophageal reflux disease) Heart attack HTN (hypertension) Hyperlipidemia Kidney stone Pleurisy Sinus problem Sleep apnea 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ory Surgical History H/O gastric bypass History of cardiac cath History of [place]
[2020-07-31 19:48] VITALS: BP 164/83; PULSE 71; RESP 16; TEMP 36.5; O2SAT 99
== END 2020-07-31 20:34 | disposition home or self-care (01) ==
PROVIDERS: Emergency Provider Nurse Practitioner Family
DX: J06.9 Acute upper respiratory infection, unspecified (principal); R05 Cough; Z20.828 Contact with and (suspected) exposure to other viral communicable diseases; Z87.891 Personal history of nicotine dependence; Z98.84 Bariatric surgery status; J45.909 Unspecified asthma, uncomplicated; I25.10 Atherosclerotic heart disease of native coronary artery without angina pectoris; K21.9 Gastro-esophageal reflux disease without esophagitis; I10 Essential (primary) hypertension; E78.5 Hyperlipidemia, unspecified; G47.30 Sleep apnea, unspecified; F41.9 Anxiety disorder, unspecified; F32.9 Major depressive disorder, single episode, unspecified
CPT/HCPCS: 71046; 87081; 87880; 99213; G0463

== ENCOUNTER 2020-08-16 17:44 | Emergency (ER) | payer OTHER, SELFPAY ==
--- NOTE | ~2020-08-16 | XR_ITS ---
EXAMINATION: XR chest 2V DATE: 08/16/2020 18:42 INDICATION: Shortness of breath TECHNIQUE: frontal and lateral views of the chest were obtained. COMPARISON: Chest radiograph dated 07/31/2020 FINDINGS: The lungs remain clear with no focal airspace opacities, pulmonary edema, pleural effusion or pneumot horax. The cardiomediastinal silhouette is normal. Mild upper thoracic levocurvature. IMPRESSION: 1. No acute cardiopulmonary disease. Reviewed, dictated and finalized at location A. 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
[2020-08-16 17:51] VITALS: BP 138/93; PULSE 74; RESP 16; TEMP 37; O2SAT 98
[2020-08-16 17:53] VITALS: BP 138/93; PULSE 74; RESP 16; TEMP 37; O2SAT 98
--- NOTE | 2020-08-16 18:23 | ED.URI ---
HPI - URI/Sore Throat General Chief Complaint: Upper Respiratory Infection Stated Complaint: cough/chest congestion/sinuses Time Seen by Provider: 08/16/20 18:10 Source: patient and RN notes reviewed Mode of arrival: ambulatory Limitations: no limitations History of Present Illness HPI Narrative: 50 year old male who presents to [facility] with complaints of feeling like he has pneumonia. Patient states that he has been using his inhaler and he has some discomfort along his right rib area. Patient also states that he has some sinus congestion and nasal drainage and some sore throat. Patient states that he has used his Neti pot and also he religiously uses his Flonase but has not taken any sinus medication or taken any cough medication or anything for pain. Patient states that he went to [facility] and had COVID test done today but doesn't have test results back yet. Patient speaking in full sentences with no dyspnea noted, occasional wheeze noted on auscultation of his lungs with no tachypnea or acute dyspnea noted. Patient denies any loss of smell or taste or any body aches. MD elicited complaint: cough, sore throat, rhinorrhea, nasal congestion and other (headache) Pertinent past history: sinusitis, COPD and asthma Onset (ago): day(s) (3) Consistency: intermittent Severity: moderate Pain scale (0-10): 4 Description of mucous: clear Able to tolerate fluids by mouth: Yes Exacerbating factors: exertion and deep breaths Relieving factors: nothing Associated symptoms: denies other symptoms, rhinorrhea, nasal congestion, cough, shortness of breath and other (rib pain) Treatments prior to arrival: none Related Data Home Medications Medication Instructions Recorded Confirmed atenolol 100 mg PO DAILY 10/26/19 08/16/20 fluticasone propionate 2 spray INTRANASAL DAILY 10/26/19 08/16/20 diphenhydramine HCl 50 mg PO PRN PRN 12/31/19 08/16/20 albuterol sulfate [ProAir HFA] 2 inh INHALATION Q4-6H PRN 02/17/20 08/16/20 citalopram 20 mg PO DAILY 02/17/20 08/16/20 omeprazole 40 mg PO DAILY 06/09/20 08/16/20 promethazine 25 mg PO BID 08/16/20 08/16/20 Allergies Allergy/AdvReac Type Severity Reaction Status Date / Time Iodinated Contrast Media Allergy Severe Anaphylaxis Verified 06/25/20 19:06 famotidine Allergy Intermediate Hives Verified 06/25/20 19:07 levofloxacin Allergy Mild Unknown Verified 03/11/20 19:34 lidocaine Allergy Mild Unknown Verified 03/11/20 19:34 Quinolones Allergy Mild Unknown Verified 03/11/20 19:34 Sulfa (Sulfonamide Allergy Mild RASH Verified 03/11/20 19:34 Antibiotics) sulfamethoxazole Allergy Mild RASH Verified 03/11/20 19:34 trimethoprim Allergy Mild RASH Verified 03/11/20 19:34 amlodipine Allergy Unknown HIVES Verified 03/11/20 19:34 azithromycin Allergy Unknown Unknown Verified 03/11/20 19:34 cephalexin Allergy Unknown Unknown Verified 03/11/20 19:34 flavoxate Allergy Unknown Unknown Verified 03/11/20 19:34 lisinopril Allergy Unknown HIVES Verified 03/11/20 19:34 losartan Allergy Unknown SWLLEING Verified 03/11/20 19:34 LIP AND HIVES nebivolol Allergy Unknown LIP Verified 03/11/20 19:34 SWELLING nitrofurantoin Allergy Unknown Unknown Verified 03/11/20 19:34 oxycodone Allergy Unknown Unknown Verified 03/11/20 19:34 paroxetine Allergy Unknown Unknown Verified 03/11/20 19:34 spironolactone Allergy Unknown RASH AND Verified 03/11/20 19:34 ITCHING valsartan Allergy Unknown HIVES/SOB Verified 03/11/20 19:34 Review of Systems Review of Systems: Narrative: CONSTITUTIONAL: Denies fever, chills, or sweats. EYES: Denies visual changes, redness, or discharge. ENT: Positive reported rhinorrhea, congestion, sore throat, no otalgia. CARDIOVASCULAR: reports right anterior lateral chest pain,no palpitations, or edema. RESPIRATORY: Positive reported cough or dyspnea. GASTROINTESTINAL: Denies abdominal pain, nausea, vomiting, or diarrhea. GENITOURINARY: Denies dysuria or hematuria. SKIN: Denies rash or itching. [facility]KEL
== END 2020-08-16 19:00 | disposition home or self-care (01) ==
PROVIDERS: Emergency Provider Registered Nurse
DX: R09.89 Other specified symptoms and signs involving the circulatory and respiratory systems (principal); R05 Cough; Z87.891 Personal history of nicotine dependence; Z98.84 Bariatric surgery status; J45.909 Unspecified asthma, uncomplicated; F41.9 Anxiety disorder, unspecified; I25.10 Atherosclerotic heart disease of native coronary artery without angina pectoris; F32.9 Major depressive disorder, single episode, unspecified; K21.9 Gastro-esophageal reflux disease without esophagitis; I25.2 Old myocardial infarction; I10 Essential (primary) hypertension; E78.5 Hyperlipidemia, unspecified; G47.30 Sleep apnea, unspecified
CPT/HCPCS: 71046; 99213; G0463

== ENCOUNTER 2020-09-04 18:06 | Emergency (ER) | payer OTHER, SELFPAY ==
[2020-09-04 18:12] VITALS: BP 146/91; PULSE 68; RESP 18; TEMP 37.1; O2SAT 100
--- NOTE | 2020-09-04 18:12 | ED.URI ---
HPI - URI/Sore Throat General Chief Complaint: Upper Respiratory Infection Stated Complaint: Upper Respiratory Time Seen by Provider: 09/04/20 18:10 History of Present Illness HPI Narrative: Carlos Singh is a 50 yo male with anxiety, sinusitis, hypertension, cholesterol, comes with not feeling well and chills he has had these ongoing and even though he was treated with prednisone, amoxicillin on 08/16 - he still does not feel well has symptoms of sweating. He worries a lot about both physical things and work-related stuff and has a disrupted sleep pattern. Patient has had 9 Covid test since November and has had multiple antibiotics and steroids. I told the patient this evening I could not give him our steroids he had 2 weeks ago and and he has had a multiple times since I saw him back in May as well as multiple bouts of antibiotics which were have not really changed how he feels. Has asthma and does not use his albuterol inhaler but only has only needed to use it once this week. So we discussed different ways to handle some of the symptoms he having rather than using medication. 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 sees a multicultural services librarian and psychiatrist and he has 42 drug allergies Related Data Home Medications Medication Instructions Recorded Confirmed atenolol 100 mg PO DAILY 10/26/19 09/04/20 fluticasone propionate 2 spray INTRANASAL DAILY 10/26/19 09/04/20 diphenhydramine HCl 50 mg PO BID 12/31/19 09/04/20 citalopram 20 mg PO DAILY 02/17/20 09/04/20 omeprazole 40 mg PO DAILY 06/09/20 09/04/20 promethazine 25 mg PO BID 08/16/20 09/04/20 Allergies Allergy/AdvReac Type Severity Reaction Status Date / Time Iodinated Contrast Media Allergy Severe Anaphylaxis Verified 06/25/20 19:06 metformin Allergy Severe Stopped Verified 09/04/20 18:40 Breathing Sulfa (Sulfonamide Allergy Severe Anaphylaxis Verified 09/04/20 18:27 Antibiotics) sulfamethoxazole Allergy Severe Anaphylaxis Verified 09/04/20 18:27 famotidine Allergy Intermediate Hives Verified 06/25/20 19:07 losartan Allergy Intermediate SWLLEING Verified 09/04/20 18:27 LIP AND HIVES nebivolol Allergy Intermediate LIP Verified 09/04/20 18:27 SWELLING Quinolones Allergy Intermediate Nervousness Verified 09/04/20 18:41 valsartan Allergy Intermediate HIVES/SOB Verified 09/04/20 18:27 amlodipine Allergy Mild HIVES Verified 09/04/20 18:40 azithromycin Allergy Mild Nervousness Verified 09/04/20 18:27 spironolactone Allergy Mild RASH AND Verified 09/04/20 18:27 ITCHING trimethoprim Allergy Mild RASH Verified 03/11/20 19:34 cephalexin AdvReac Mild Nervousness Verified 09/04/20 18:41 flavoxate AdvReac Mild Nervousness Verified 09/04/20 18:41 levofloxacin AdvReac Mild Nervousness Verified 09/04/20 18:41 lidocaine AdvReac Mild Nervousness Verified 09/04/20 18:41 lisinopril AdvReac Mild Nervousness Verified 09/04/20 18:41 nitrofurantoin AdvReac Mild Nervousness Verified 09/04/20 18:41 oxycodone AdvReac Mild Nervousness Verified 09/04/20 18:41 paroxetine AdvReac Mild Nervousness Verified 09/04/20 18:41 Review of Systems Review of Systems: Narrative: CONSTITUTIONAL: Denies fever, has chills, sweats. EYES: Denies visual changes, redness, discharge. ENT: Denies rhinorrhea, congestion, sore throat, otalgia. CARDIOVASCULAR: Denies chest pain, palpitations, edema. RESPIRATORY: Denies dyspnea, wheezing, has cough GASTROINTESTINAL: Denies abdominal pain, nausea, vomiting, diarrhea. GENITOURINARY: Denies dysuria, hematuria, abnormal discharge SKIN: Denies rash or itching. NEUROLOGIC: Denies numbness, or focal weakness. PSYCHIATRIC: Denies anxiety or depression. [facility] Past Medical History Medical History (Updated 09/04/20 @ 18:54 by Tatyana Hamilton CNP) Anemia Anxiety Asthma CAD (coronary artery disease) Concussion Depression Diverticulitis Fracture nose, ribs, right knee, thumb, hand, neck GERD (gastroesophageal reflux disease) Heart attack HTN (hypertension) Hyperlipide
--- NOTE | 2020-09-04 19:06 | PC.NURSE ---
With allergies and symptoms, VENTURA Joe recommended over the counter sinus congestion mucus relief PE which has 400mg guaifenesin and 10 mg phenylephrine HCL.
== END 2020-09-04 19:17 | disposition home or self-care (01) ==
PROVIDERS: Emergency Provider Nurse Practitioner
DX: R68.83 Chills (without fever) (principal); R53.83 Other fatigue; I10 Essential (primary) hypertension; Z86.2 Personal history of diseases of the blood and blood-forming organs and certain disorders involving the immune mechanism; I25.10 Atherosclerotic heart disease of native coronary artery without angina pectoris; J45.909 Unspecified asthma, uncomplicated; F41.9 Anxiety disorder, unspecified; F32.9 Major depressive disorder, single episode, unspecified; I25.2 Old myocardial infarction; K21.9 Gastro-esophageal reflux disease without esophagitis; E78.5 Hyperlipidemia, unspecified; Z87.442 Personal history of urinary calculi; G47.30 Sleep apnea, unspecified; Z98.84 Bariatric surgery status; Z87.891 Personal history of nicotine dependence
CPT/HCPCS: 99213; G0463

== ENCOUNTER 2020-09-13 10:00 | Emergency (ER) | payer OTHER, SELFPAY ==
--- NOTE | 2020-09-13 10:06 | ED.GENADULT ---
HPI - General Adult General Chief complaint: Upper Respiratory Infection Stated complaint: Right nostrile pain Time Seen by Provider: 09/13/20 10:06 Source: patient Mode of arrival: ambulatory Limitations: no limitations History of Present Illness HPI narrative: 50-year-old male patient presents to the [facility] with complaints of right nostril pain for the past 2 days. Patient states he has been doing Flonase several times a day daily for a long time now. Patient states he has also been using the [place] pot states it jerry when he uses these things at times. Patient denies using a humidifier in his room. Patient also reports that he has been having a little bit of stabbing pain that started this morning to the right ear. Denies any fevers, body aches or chills. Patient seen here several times for upper respiratory and sinus infections. Patient states he does not have a primary doctor. States that many primary doctors refused to see him wires. Related Data Home Medications Medication Instructions Recorded Confirmed atenolol 100 mg PO DAILY 10/26/19 09/13/20 fluticasone propionate 2 spray INTRANASAL DAILY 10/26/19 09/13/20 citalopram 20 mg PO DAILY 02/17/20 09/04/20 omeprazole 40 mg PO DAILY 06/09/20 09/13/20 promethazine 25 mg PO BID 08/16/20 09/04/20 alprazolam 2 mg PO BID 09/13/20 09/13/20 ciprofloxacin HCl 500 mg PO DAILY 09/13/20 09/13/20 fluticasone propionate INTRANASAL 09/13/20 Allergies Allergy/AdvReac Type Severity Reaction Status Date / Time Iodinated Contrast Media Allergy Severe Anaphylaxis Verified 06/25/20 19:06 metformin Allergy Severe Stopped Verified 09/04/20 18:40 Breathing Sulfa (Sulfonamide Allergy Severe Anaphylaxis Verified 09/04/20 18:27 Antibiotics) sulfamethoxazole Allergy Severe Anaphylaxis Verified 09/04/20 18:27 famotidine Allergy Intermediate Hives Verified 06/25/20 19:07 losartan Allergy Intermediate SWLLEING Verified 09/04/20 18:27 LIP AND HIVES nebivolol Allergy Intermediate LIP Verified 09/04/20 18:27 SWELLING Quinolones Allergy Intermediate Nervousness Verified 09/04/20 18:41 valsartan Allergy Intermediate HIVES/SOB Verified 09/04/20 18:27 amlodipine Allergy Mild HIVES Verified 09/04/20 18:40 azithromycin Allergy Mild Nervousness Verified 09/04/20 18:27 spironolactone Allergy Mild RASH AND Verified 09/04/20 18:27 ITCHING trimethoprim Allergy Mild RASH Verified 03/11/20 19:34 cephalexin AdvReac Mild Nervousness Verified 09/04/20 18:41 flavoxate AdvReac Mild Nervousness Verified 09/04/20 18:41 levofloxacin AdvReac Mild Nervousness Verified 09/04/20 18:41 lidocaine AdvReac Mild Nervousness Verified 09/04/20 18:41 lisinopril AdvReac Mild Nervousness Verified 09/04/20 18:41 nitrofurantoin AdvReac Mild Nervousness Verified 09/04/20 18:41 oxycodone AdvReac Mild Nervousness Verified 09/04/20 18:41 paroxetine AdvReac Mild Nervousness Verified 09/04/20 18:41 Review of Systems Review of Systems: Narrative: CONSTITUTIONAL: Denies fever, chills, or sweats. EYES: Denies visual changes, redness, or discharge. ENT: Denies rhinorrhea, congestion, positive pain right nostril x2 days, denies sore throat, positive right otalgia. CARDIOVASCULAR: Denies chest pain, palpitations, or edema. RESPIRATORY: Denies cough or dyspnea. GASTROINTESTINAL: Denies abdominal pain, nausea, vomiting, or diarrhea. GENITOURINARY: Denies dysuria or hematuria. SKIN: Denies rash or itching. MUSCULOSKELETAL: Denies back pain, joint pain, or myalgia. NEUROLOGIC: Denies headache, numbness, or weakness. PSYCHIATRIC: Denies anxiety or depression. [facility] Past Medical History Medical History (Updated 09/13/20 @ 10:18 by RAINA Joseph) Anemia Anxiety Asthma CAD (coronary artery disease) Concussion Depression Diverticulitis Fracture nose, ribs, right knee, thumb, hand, neck GERD (gastroesophageal reflux disease) Heart attack HTN (hypertension) Hyperlipidemia Kidney stone Pleurisy Sinus
[2020-09-13 10:07] VITALS: BP 169/79; PULSE 87; RESP 16; TEMP 36.3; O2SAT 98
[2020-09-13 10:11] VITALS: BP 169/79; PULSE 87; RESP 16; TEMP 36.3; O2SAT 98
== END 2020-09-13 10:32 | disposition home or self-care (01) ==
PROVIDERS: Emergency Provider Nurse Practitioner Family
DX: H66.91 Otitis media, unspecified, right ear (principal); Z87.891 Personal history of nicotine dependence; Z98.84 Bariatric surgery status; D64.9 Anemia, unspecified; F41.9 Anxiety disorder, unspecified; J45.909 Unspecified asthma, uncomplicated; I25.10 Atherosclerotic heart disease of native coronary artery without angina pectoris; F32.9 Major depressive disorder, single episode, unspecified; K21.9 Gastro-esophageal reflux disease without esophagitis; I25.2 Old myocardial infarction; I10 Essential (primary) hypertension; E78.5 Hyperlipidemia, unspecified; G47.30 Sleep apnea, unspecified
CPT/HCPCS: 99213; G0463

== ENCOUNTER 2020-10-27 05:29 | Emergency (ER) | payer OTHER, SELFPAY ==
[2020-10-27] VITALS (10 sets, daily range): BP systolic 153–176; BP diastolic 78–90; PULSE 73–83; RESP 14–21; TEMP 37; O2SAT 94–97
--- NOTE | ~2020-10-27 | XR_ITS ---
XR chest 1V portable DATE: 10/27/2020 06:20 INDICATION: Chest pain, shortness of breath TECHNIQUE: Portable AP chest on October 27, 2020 at 0559 hours COMPARISON: 08/2020 2 view chest FINDINGS: Heart size is within normal range considering magnification associated with AP projection. No pulmonary infiltrate or consolidation, pleural effusion or pulmonary vascular congestion or pneumo thorax is evident. IMPRESSION: No active cardiopulmonary disease Reviewed, dictated and finalized at location A. CASE MANAGEMENT
--- NOTE | 2020-10-27 05:33 | ECG_ITS ---
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
[2020-10-27] MEDS: ASPIRIN 81 MG CHEWABLE TABLET 324 MG PO (05:46)
[2020-10-27 05:57] LABS: Basophils Percent Auto 0.7 % (0.2-1.2); Eosinophils Absolute Auto 0.1 K/mm3 (0-0.3); Hematocrit 43.1 % (42.0-52.0); Hemoglobin 13.7 g/dL (14.0-18.0); Immature Granulocyte Absolute 0.01 K/mm3 (0.00-0.031); Immature Granulocyte Percent A 0.2 % (0-0.5); Lymphocytes Absolute Auto 1.73 K/mm3 (0.9-3.2); Lymphocytes Percent Auto 29.1 % (18.3-44.2); Mean Corpuscular HGB Conc 31.8 g/dl (32-36); Mean Corpuscular Hemoglobin 23.4 pg (26-34); Mean Corpuscular Volume 73.7 fl (80-100); Mean Platelet Volume 9.3 fl (7.4-10.4); Monocytes Absolute Auto 0.4 K/mm3 (0.1-0.6); Monocytes Percent Auto 7.2 % (2.6-8.5); Neutrophils Absolute Auto 3.6 K/mm3 (1.3-6.7); Neutrophils Percent Auto 60.8 % (45.5-73.1); Platelet Count Result 195 k/mm3 (150-375); Red Blood Count 5.85 M/mm3 (4.6-6.20); Red Cell Distribution Width 14.9 % (11.5-14.5)
[2020-10-27 06:07] LABS: INR 0.9; Prothrombin Time 13.1 Seconds (11.1-14.7)
[2020-10-27 06:08] LABS: Partial Thromboplastin Time 36.5 SECONDS (22.3-36.8)
[2020-10-27 06:10] LABS: Alanine Aminotransferase 67 U/L (4-50); Albumin Level 4.6 g/dL (3.5-5.1); Alkaline Phosphatase 75 U/L (38-126); Anion Gap 6 mmol/L (8-16); Aspartate Amino Transferase 70 U/L (17-59); Bilirubin,Total 1.2 mg/dL (0.2-1.3); Blood Urea Nitrogen 11 mg/dL (9-20); Calcium 9.2 mg/dL (8.4-10.2); Carbon Dioxide 33 mmol/L (22-30); Chloride 103 mmol/L (98-107); Estimated CRCL calculation 131 ml/min; Estimated Glomerular Filt Rate > 60; Glucose 136 mg/dL (75-110); Lipase 118 U/L (23-300); Potassium 3.4 mmol/L (3.4-5.0); Sodium 142 mmol/L (137-145)
[2020-10-27 06:22] LABS: Troponin I < 0.012 ng/mL (0.000-0.034)
--- NOTE | 2020-10-27 06:29 | PC.NURSE ---
Patient stating his equilibrium is off and requesting the physician to look in his ears, as well as a breathing treatment for his asthma. ERP notified.
--- NOTE | 2020-10-27 06:37 | ED.GENADULT ---
HPI - General Adult General Chief complaint: Chest Pain Stated complaint: chest pain Time Seen by Provider: 10/27/20 05:55 History of Present Illness HPI narrative: Patient is a 50-year-old gentleman who presents the emergency department with chief complaint of chest wall pain dizziness ear pressure sinus pressure. Patient states that the symptoms of been going on for several days he actually was tested for COVID-19 and it was negative patient states that this evening he was getting sweaty whenever he was walking and noticed that he had a pressure sensation in his chest. The patient states that there is tenderness to palpation along the left sternal border patient denies fever or chills. Related Data Home Medications Medication Instructions Recorded Confirmed atenolol 100 mg PO DAILY 10/26/19 09/13/20 fluticasone propionate 2 spray INTRANASAL DAILY 10/26/19 09/13/20 citalopram 20 mg PO DAILY 02/17/20 09/04/20 omeprazole 40 mg PO DAILY 06/09/20 09/13/20 promethazine 25 mg PO BID 08/16/20 09/04/20 alprazolam 2 mg PO BID 09/13/20 09/13/20 ciprofloxacin HCl 500 mg PO DAILY 09/13/20 09/13/20 fluticasone propionate INTRANASAL 09/13/20 Allergies Allergy/AdvReac Type Severity Reaction Status Date / Time Iodinated Contrast Media Allergy Severe Anaphylaxis Verified 10/27/20 05:40 metformin Allergy Severe Stopped Verified 10/27/20 05:40 Breathing Sulfa (Sulfonamide Allergy Severe Anaphylaxis Verified 10/27/20 05:40 Antibiotics) sulfamethoxazole Allergy Severe Anaphylaxis Verified 10/27/20 05:40 famotidine Allergy Intermediate Hives Verified 10/27/20 05:40 losartan Allergy Intermediate SWLLEING Verified 10/27/20 05:40 LIP AND HIVES nebivolol Allergy Intermediate LIP Verified 10/27/20 05:40 SWELLING Quinolones Allergy Intermediate Nervousness Verified 10/27/20 05:40 valsartan Allergy Intermediate HIVES/SOB Verified 10/27/20 05:40 amlodipine Allergy Mild HIVES Verified 10/27/20 05:40 azithromycin Allergy Mild Nervousness Verified 10/27/20 05:40 spironolactone Allergy Mild RASH AND Verified 10/27/20 05:40 ITCHING trimethoprim Allergy Mild RASH Verified 10/27/20 05:40 cephalexin AdvReac Mild Nervousness Verified 10/27/20 05:40 flavoxate AdvReac Mild Nervousness Verified 10/27/20 05:40 levofloxacin AdvReac Mild Nervousness Verified 10/27/20 05:40 lidocaine AdvReac Mild Nervousness Verified 10/27/20 05:40 lisinopril AdvReac Mild Nervousness Verified 10/27/20 05:40 nitrofurantoin AdvReac Mild Nervousness Verified 10/27/20 05:40 oxycodone AdvReac Mild Nervousness Verified 10/27/20 05:40 paroxetine AdvReac Mild Nervousness Verified 10/27/20 05:40 Review of Systems Review of Systems: Narrative: A 10 system review of systems was completed on the patient and is negative except for what is stated in the HPI. Nursing and ancillary documentation was reviewed. 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
[2020-10-27] MEDS: ALBUTEROL SULFATE (*SP) AEROSOL 1 PUFF 2 PUFF INHALATION (06:38)
== END 2020-10-27 06:57 | disposition home or self-care (01) ==
PROVIDERS: Emergency Provider Emergency Medicine; PCP Family Medicine
DX: R07.89 Other chest pain (principal); J01.10 Acute frontal sinusitis, unspecified; H66.002 Acute suppurative otitis media without spontaneous rupture of ear drum, left ear; J45.909 Unspecified asthma, uncomplicated; I25.10 Atherosclerotic heart disease of native coronary artery without angina pectoris; F32.9 Major depressive disorder, single episode, unspecified; F41.9 Anxiety disorder, unspecified; K21.9 Gastro-esophageal reflux disease without esophagitis; I25.2 Old myocardial infarction; I10 Essential (primary) hypertension; E78.5 Hyperlipidemia, unspecified; Z87.442 Personal history of urinary calculi; G47.30 Sleep apnea, unspecified; Z98.84 Bariatric surgery status; Z87.891 Personal history of nicotine dependence; R94.31 Abnormal electrocardiogram [ECG] [EKG]
CPT/HCPCS: 36415; 71045; 80053; 83690; 84484; 85025; 85610; 85730; 93005; 94640; 99284; A9270

== ENCOUNTER 2020-11-02 16:13 | Emergency (ER) | payer OTHER, SELFPAY ==
[2020-11-02 16:20] VITALS: BP 143/86; PULSE 68; RESP 16; TEMP 36.4; O2SAT 100
--- NOTE | 2020-11-02 16:57 | ED.SKABFB ---
HPI - Skin/Abscess/Foreign Bdy General Chief complaint: Skin/Abscess/Foreign Body Stated complaint: pos skin infection Source: patient Mode of arrival: ambulatory Limitations: no limitations History of Present Illness HPI narrative: Patient is a 50-year-old male who presents complaining of swelling and bruising to previous IV site. Patient reports having an IV placed on 10/27 in the ED. Patient reports after discharge increased bruising to the area reports edema and small area of redness at the puncture site. He denies pain at this time. He denies all other complaints. complaint: other (Puncture wound) Related Data Home Medications Medication Instructions Recorded Confirmed atenolol 100 mg PO DAILY 10/26/19 09/13/20 fluticasone propionate 2 spray INTRANASAL DAILY 10/26/19 09/13/20 citalopram 20 mg PO DAILY 02/17/20 09/04/20 omeprazole 40 mg PO DAILY 06/09/20 09/13/20 promethazine 25 mg PO BID 08/16/20 09/04/20 alprazolam 2 mg PO BID 09/13/20 09/13/20 Allergies Allergy/AdvReac Type Severity Reaction Status Date / Time Iodinated Contrast Media Allergy Severe Anaphylaxis Verified 11/02/20 16:18 metformin Allergy Severe Stopped Verified 11/02/20 16:18 Breathing Sulfa (Sulfonamide Allergy Severe Anaphylaxis Verified 11/02/20 16:18 Antibiotics) sulfamethoxazole Allergy Severe Anaphylaxis Verified 11/02/20 16:18 famotidine Allergy Intermediate Hives Verified 11/02/20 16:18 losartan Allergy Intermediate SWLLEING Verified 11/02/20 16:18 LIP AND HIVES nebivolol Allergy Intermediate LIP Verified 11/02/20 16:18 SWELLING Quinolones Allergy Intermediate Nervousness Verified 11/02/20 16:18 valsartan Allergy Intermediate HIVES/SOB Verified 11/02/20 16:18 amlodipine Allergy Mild HIVES Verified 11/02/20 16:18 azithromycin Allergy Mild Nervousness Verified 11/02/20 16:18 spironolactone Allergy Mild RASH AND Verified 11/02/20 16:18 ITCHING trimethoprim Allergy Mild RASH Verified 11/02/20 16:18 cephalexin AdvReac Mild Nervousness Verified 11/02/20 16:18 flavoxate AdvReac Mild Nervousness Verified 11/02/20 16:18 levofloxacin AdvReac Mild Nervousness Verified 11/02/20 16:18 lidocaine AdvReac Mild Nervousness Verified 11/02/20 16:18 lisinopril AdvReac Mild Nervousness Verified 11/02/20 16:18 nitrofurantoin AdvReac Mild Nervousness Verified 11/02/20 16:18 oxycodone AdvReac Mild Nervousness Verified 11/02/20 16:18 paroxetine AdvReac Mild Nervousness Verified 11/02/20 16:18 Review of Systems Review of Systems: Narrative: CONSTITUTIONAL: Denies fever, chills, or sweats. EYES: Denies visual changes, redness, or discharge. ENT: Denies rhinorrhea, congestion, sore throat, or otalgia. CARDIOVASCULAR: Denies chest pain, palpitations, or edema. RESPIRATORY: Denies cough or dyspnea. GASTROINTESTINAL: Denies abdominal pain, nausea, vomiting, or diarrhea. GENITOURINARY: Denies dysuria or hematuria. SKIN: Puncture wound in the left forearm MUSCULOSKELETAL: Denies back pain, joint pain, or myalgia. NEUROLOGIC: Denies headache, numbness, dizziness, or weakness. PSYCHIATRIC: Denies anxiety or depression. 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
== END 2020-11-02 17:12 | disposition home or self-care (01) ==
PROVIDERS: Emergency Provider Nurse Practitioner
DX: S51.832A Puncture wound without foreign body of left forearm, initial encounter (principal); X58.XXXA Exposure to other specified factors, initial encounter; Z87.891 Personal history of nicotine dependence; Z98.84 Bariatric surgery status; G47.30 Sleep apnea, unspecified; E78.5 Hyperlipidemia, unspecified; I10 Essential (primary) hypertension; I25.2 Old myocardial infarction; K21.9 Gastro-esophageal reflux disease without esophagitis; F32.9 Major depressive disorder, single episode, unspecified; F41.9 Anxiety disorder, unspecified; I25.10 Atherosclerotic heart disease of native coronary artery without angina pectoris; J45.909 Unspecified asthma, uncomplicated
CPT/HCPCS: 99212; G0463

== ENCOUNTER 2020-11-09 15:29 | Emergency (ER) | payer OTHER, SELFPAY ==
--- NOTE | 2020-11-09 15:41 | ED.EAR ---
HPI - Ear Problem General Chief complaint: Ear Stated complaint: ear pain Time Seen by Provider: 11/09/20 15:40 Source: patient, RN notes reviewed and old records reviewed Mode of arrival: ambulatory Limitations: no limitations History of Present Illness HPI Narrative: 50-year-old male presents to [facility] stating that he has a Q-tip cotton piece stuck in his right ear. Patient reports that he was cleaning the external portion of his right ear with a Q-tip when he pulled it away noticed that there was no white cotton at the tip. States that he was seen in the ER recently for CP and told he had fluid in his ears and would like that check too. Denies any cough. Denies sinus drainage. Denies abdominal pain and chest pain. No fevers. Related Data Home Medications Medication Instructions Recorded Confirmed atenolol 100 mg PO DAILY 10/26/19 09/13/20 fluticasone propionate 2 spray INTRANASAL DAILY 10/26/19 09/13/20 citalopram 20 mg PO DAILY 02/17/20 09/04/20 omeprazole 40 mg PO DAILY 06/09/20 09/13/20 promethazine 25 mg PO BID 08/16/20 09/04/20 alprazolam 2 mg PO BID 09/13/20 11/02/20 Allergies Allergy/AdvReac Type Severity Reaction Status Date / Time Iodinated Contrast Media Allergy Severe Anaphylaxis Verified 11/02/20 16:18 metformin Allergy Severe Stopped Verified 11/02/20 16:18 Breathing Sulfa (Sulfonamide Allergy Severe Anaphylaxis Verified 11/02/20 16:18 Antibiotics) sulfamethoxazole Allergy Severe Anaphylaxis Verified 11/02/20 16:18 famotidine Allergy Intermediate Hives Verified 11/02/20 16:18 losartan Allergy Intermediate SWLLEING Verified 11/02/20 16:18 LIP AND HIVES nebivolol Allergy Intermediate LIP Verified 11/02/20 16:18 SWELLING Quinolones Allergy Intermediate Nervousness Verified 11/02/20 16:18 valsartan Allergy Intermediate HIVES/SOB Verified 11/02/20 16:18 amlodipine Allergy Mild HIVES Verified 11/02/20 16:18 azithromycin Allergy Mild Nervousness Verified 11/02/20 16:18 spironolactone Allergy Mild RASH AND Verified 11/02/20 16:18 ITCHING trimethoprim Allergy Mild RASH Verified 11/02/20 16:18 cephalexin AdvReac Mild Nervousness Verified 11/02/20 16:18 flavoxate AdvReac Mild Nervousness Verified 11/02/20 16:18 levofloxacin AdvReac Mild Nervousness Verified 11/02/20 16:18 lidocaine AdvReac Mild Nervousness Verified 11/02/20 16:18 lisinopril AdvReac Mild Nervousness Verified 11/02/20 16:18 nitrofurantoin AdvReac Mild Nervousness Verified 11/02/20 16:18 oxycodone AdvReac Mild Nervousness Verified 11/02/20 16:18 paroxetine AdvReac Mild Nervousness Verified 11/02/20 16:18 Review of Systems Review of Systems: Narrative: CONSTITUTIONAL: Denies fever, chills, or sweats. EYES: Denies visual changes, redness, or discharge. ENT: Denies rhinorrhea, congestion, sore throat. And ear. CARDIOVASCULAR: Denies chest pain, palpitations, or edema. RESPIRATORY: Denies cough or dyspnea. GASTROINTESTINAL: Denies abdominal pain, nausea, vomiting, or diarrhea. All other systems reviewed are negative, except as documented in HPI. 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
[2020-11-09 15:42] VITALS: BP 149/79; PULSE 67; RESP 16; TEMP 36.7; O2SAT 99
== END 2020-11-09 15:54 | disposition home or self-care (01) ==
PROVIDERS: Emergency Provider Nurse Practitioner
DX: H65.113 Acute and subacute allergic otitis media (mucoid) (sanguinous) (serous), bilateral (principal); Z87.891 Personal history of nicotine dependence; Z98.84 Bariatric surgery status; J45.909 Unspecified asthma, uncomplicated; I25.10 Atherosclerotic heart disease of native coronary artery without angina pectoris; K21.9 Gastro-esophageal reflux disease without esophagitis; I25.2 Old myocardial infarction; I10 Essential (primary) hypertension; E78.5 Hyperlipidemia, unspecified; G47.30 Sleep apnea, unspecified; F41.9 Anxiety disorder, unspecified; F32.9 Major depressive disorder, single episode, unspecified
CPT/HCPCS: 99211; 99214; G0463

== ENCOUNTER 2020-12-02 09:57 | Emergency (ER) | payer OTHER, SELFPAY ==
--- NOTE | 2020-12-02 10:11 | ED.URI ---
HPI - URI/Sore Throat General Chief Complaint: Ear Stated Complaint: Ear Pain Time Seen by Provider: 12/02/20 10:11 Source: patient and RN notes reviewed Mode of arrival: ambulatory Limitations: no limitations History of Present Illness HPI Narrative: 50-year-old male presents to the [facility] with complaints of bilateral ear pain and ear itching with burning sometimes. States that the right is worse then the left. Was seen for similar about 1 month ago and states that he has used flonase. Did not F/U with ENT states that he called and can not get an appointment till January. Denies fevers. States that he always has sinus congestion issues. Denies cough and Chest pain. Related Data Home Medications Medication Instructions Recorded Confirmed atenolol 100 mg PO DAILY 10/26/19 12/02/20 fluticasone propionate 2 spray INTRANASAL DAILY 10/26/19 12/02/20 citalopram 20 mg PO DAILY 02/17/20 12/02/20 omeprazole 40 mg PO DAILY 06/09/20 12/02/20 promethazine 25 mg PO BID 08/16/20 12/02/20 alprazolam 2 mg PO BID 09/13/20 12/02/20 Allergies Allergy/AdvReac Type Severity Reaction Status Date / Time Iodinated Contrast Media Allergy Severe Anaphylaxis Verified 11/02/20 16:18 metformin Allergy Severe Stopped Verified 11/02/20 16:18 Breathing Sulfa (Sulfonamide Allergy Severe Anaphylaxis Verified 11/02/20 16:18 Antibiotics) sulfamethoxazole Allergy Severe Anaphylaxis Verified 11/02/20 16:18 famotidine Allergy Intermediate Hives Verified 11/02/20 16:18 losartan Allergy Intermediate SWLLEING Verified 11/02/20 16:18 LIP AND HIVES nebivolol Allergy Intermediate LIP Verified 11/02/20 16:18 SWELLING Quinolones Allergy Intermediate Nervousness Verified 11/02/20 16:18 valsartan Allergy Intermediate HIVES/SOB Verified 11/02/20 16:18 amlodipine Allergy Mild HIVES Verified 11/02/20 16:18 azithromycin Allergy Mild Nervousness Verified 11/02/20 16:18 spironolactone Allergy Mild RASH AND Verified 11/02/20 16:18 ITCHING trimethoprim Allergy Mild RASH Verified 11/02/20 16:18 cephalexin AdvReac Mild Nervousness Verified 11/02/20 16:18 flavoxate AdvReac Mild Nervousness Verified 11/02/20 16:18 levofloxacin AdvReac Mild Nervousness Verified 11/02/20 16:18 lidocaine AdvReac Mild Nervousness Verified 11/02/20 16:18 lisinopril AdvReac Mild Nervousness Verified 11/02/20 16:18 nitrofurantoin AdvReac Mild Nervousness Verified 11/02/20 16:18 oxycodone AdvReac Mild Nervousness Verified 11/02/20 16:18 paroxetine AdvReac Mild Nervousness Verified 11/02/20 16:18 Review of Systems Review of Systems: Narrative: CONSTITUTIONAL: Denies fever, chills, or sweats. EYES: Denies visual changes, redness, or discharge. ENT: Denies rhinorrhea, new congestion, sore throat. Reports bilateral ear pain, worse on the right than the left. CARDIOVASCULAR: Denies chest pain, palpitations, or edema. RESPIRATORY: Denies cough or dyspnea. MUSCULOSKELETAL: Denies back pain, joint pain, or myalgia. NEUROLOGIC: Denies headache, numbness, or weakness. PSYCHIATRIC: Denies anxiety or depression. All other systems reviewed are negative, except as documented in HPI. 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
[2020-12-02 10:18] VITALS: BP 156/105; PULSE 66; RESP 16; TEMP 36.6; O2SAT 97
== END 2020-12-02 10:31 | disposition home or self-care (01) ==
PROVIDERS: Emergency Provider Nurse Practitioner
DX: H65.06 Acute serous otitis media, recurrent, bilateral (principal); J30.9 Allergic rhinitis, unspecified; Z87.891 Personal history of nicotine dependence; J45.909 Unspecified asthma, uncomplicated; I25.10 Atherosclerotic heart disease of native coronary artery without angina pectoris; F41.9 Anxiety disorder, unspecified; F32.9 Major depressive disorder, single episode, unspecified; K21.9 Gastro-esophageal reflux disease without esophagitis; I25.2 Old myocardial infarction; I10 Essential (primary) hypertension; E78.5 Hyperlipidemia, unspecified; G47.30 Sleep apnea, unspecified; Z98.84 Bariatric surgery status
CPT/HCPCS: 99213; G0463

== ENCOUNTER 2020-12-28 14:58 | Emergency (ER) | payer OTHER, SELFPAY ==
--- NOTE | 2020-12-28 15:00 | ED.GENADULT ---
HPI - General Adult General Chief complaint: Ear Stated complaint: bilateral ear pain/dry eyes Time Seen by Provider: 12/28/20 15:00 Source: patient Mode of arrival: ambulatory Limitations: no limitations History of Present Illness HPI narrative: 42-year-old male patient presents to the [facility] with complaints of itchiness to bilateral ears for the last 2 days. [facility] with the same complaints. Patient does have history of chronic allergies and is told multiple times to take [id number] antihistamines, Flonase and follow-up with ENT which she is noncompliant with. Patient typically requires steroids or antibiotics when he is here. Patient was seen last month for similar symptoms and was given an eardrop as well as instructed to take antihistamines. Patient states he has continued not to take antihistamines and has not yet followed up with the ENT. Patient states he does have a appointment with Dr. Fierro seen in January. Related Data Home Medications Medication Instructions Recorded Confirmed atenolol 100 mg PO DAILY 10/26/19 12/02/20 fluticasone propionate 2 spray INTRANASAL DAILY 10/26/19 12/02/20 citalopram 20 mg PO DAILY 02/17/20 12/02/20 omeprazole 40 mg PO DAILY 06/09/20 12/02/20 promethazine 25 mg PO BID 08/16/20 12/02/20 alprazolam 2 mg PO BID 09/13/20 12/02/20 Allergies Allergy/AdvReac Type Severity Reaction Status Date / Time Iodinated Contrast Media Allergy Severe Anaphylaxis Verified 11/02/20 16:18 metformin Allergy Severe Stopped Verified 11/02/20 16:18 Breathing Sulfa (Sulfonamide Allergy Severe Anaphylaxis Verified 11/02/20 16:18 Antibiotics) sulfamethoxazole Allergy Severe Anaphylaxis Verified 11/02/20 16:18 famotidine Allergy Intermediate Hives Verified 11/02/20 16:18 losartan Allergy Intermediate SWLLEING Verified 11/02/20 16:18 LIP AND HIVES nebivolol Allergy Intermediate LIP Verified 11/02/20 16:18 SWELLING Quinolones Allergy Intermediate Nervousness Verified 11/02/20 16:18 valsartan Allergy Intermediate HIVES/SOB Verified 11/02/20 16:18 amlodipine Allergy Mild HIVES Verified 11/02/20 16:18 azithromycin Allergy Mild Nervousness Verified 11/02/20 16:18 spironolactone Allergy Mild RASH AND Verified 11/02/20 16:18 ITCHING trimethoprim Allergy Mild RASH Verified 11/02/20 16:18 cephalexin AdvReac Mild Nervousness Verified 11/02/20 16:18 flavoxate AdvReac Mild Nervousness Verified 11/02/20 16:18 levofloxacin AdvReac Mild Nervousness Verified 11/02/20 16:18 lidocaine AdvReac Mild Nervousness Verified 11/02/20 16:18 lisinopril AdvReac Mild Nervousness Verified 11/02/20 16:18 nitrofurantoin AdvReac Mild Nervousness Verified 11/02/20 16:18 oxycodone AdvReac Mild Nervousness Verified 11/02/20 16:18 paroxetine AdvReac Mild Nervousness Verified 11/02/20 16:18 Review of Systems Review of Systems: Narrative: CONSTITUTIONAL: Denies fever, chills, or sweats. EYES: Denies visual changes, redness, or discharge. ENT: Denies rhinorrhea, congestion, sore throat, positive itchiness to bilateral ears CARDIOVASCULAR: Denies chest pain, palpitations, or edema. RESPIRATORY: Denies cough or dyspnea. GASTROINTESTINAL: Denies abdominal pain, nausea, vomiting, or diarrhea. GENITOURINARY: Denies dysuria or hematuria. SKIN: Denies rash or itching. MUSCULOSKELETAL: Denies back pain, joint pain, or myalgia. NEUROLOGIC: Denies headache, numbness, or weakness. PSYCHIATRIC: Denies anxiety or depression. 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
[2020-12-28 15:10] VITALS: BP 156/87; PULSE 67; RESP 16; TEMP 35.8; O2SAT 99
== END 2020-12-28 15:24 | disposition home or self-care (01) ==
PROVIDERS: Emergency Provider Nurse Practitioner Family
DX: H65.413 Chronic allergic otitis media, bilateral (principal); J30.9 Allergic rhinitis, unspecified; Z87.891 Personal history of nicotine dependence; J45.909 Unspecified asthma, uncomplicated; I25.10 Atherosclerotic heart disease of native coronary artery without angina pectoris; K21.9 Gastro-esophageal reflux disease without esophagitis; I25.2 Old myocardial infarction; I10 Essential (primary) hypertension; E78.5 Hyperlipidemia, unspecified; G47.30 Sleep apnea, unspecified; F41.9 Anxiety disorder, unspecified; F32.9 Major depressive disorder, single episode, unspecified
CPT/HCPCS: 99211; G0463

== ENCOUNTER 2021-03-12 04:08 | Emergency (ER) | payer OTHER, SELFPAY ==
--- NOTE | ~2021-03-12 | XR_ITS ---
EXAMINATION: XR chest 2V DATE: 03/12/2021 05:03 INDICATION: Cough, shortness of breath and midsternal chest pain. TECHNIQUE: PA and lateral views of the chest were obtained. COMPARISON: Chest radiograph dated 10/27/2020 FINDINGS: The lungs remain clear with no focal airspace opacities, pulmonary edema, pleural effusion or pneumot horax. The cardiomediastinal silhouette is normal. Cholecystectomy clips in the right upper quadrant. IMPRESSION: 1. No acute cardiopulmonary disease. Reviewed, dictated and finalized at location A.
[2021-03-12 04:17] VITALS: BP 127/96; PULSE 63; RESP 19; TEMP 37.1; O2SAT 99
--- NOTE | 2021-03-12 04:24 | ECG_ITS ---
Measurements Intervals [place] Rate: 65 P: 16 ND: 150 QRS: 27 QRSD: 102 T: 16 QT: 394 QTc: 410 Interpretive Statements SINUS RHYTHM BASELINE ARTIFACT- AVF, V4-V6 NORMAL ECG Electronically Signed On 03-12-2021 6:07:19 CDT by Yonathan Ross D.O.
--- NOTE | 2021-03-12 04:52 | ED.URI ---
HPI - URI/Sore Throat General Chief Complaint: Upper Respiratory Infection Stated Complaint: Multiple complaints Time Seen by Provider: 03/12/21 04:41 Source: patient Mode of arrival: ambulatory Limitations: no limitations History of Present Illness HPI Narrative: Patient is a 51-year-old male complaining of shortness of breath accompanied by cough, productive, clear yellowish sputum that started 1-1/2-week ago. Patient states that she was seen in urgent care a week ago and was placed on Augmentin and steroids. Patient states that his Augmentin and steroids but today is his last day. Patient denies any chest pain, abdominal pain, nausea, vomiting, diaphoresis, fever or chills. Patient states that he has a history of asthma. Patient also states that he has a history of diabetes but diet controlled. Related Data Home Medications Medication Instructions Recorded Confirmed atenolol 100 mg PO DAILY 10/26/19 01/14/21 fluticasone propionate 2 spray INTRANASAL DAILY 10/26/19 01/14/21 citalopram 20 mg PO DAILY 02/17/20 12/02/20 omeprazole 40 mg PO DAILY 06/09/20 12/02/20 alprazolam 2 mg PO BID 09/13/20 12/02/20 alprazolam 2 mg tablet 2 mg PO TID 01/14/21 01/14/21 ibuprofen 800 mg tablet 800 mg PO Q6H 01/14/21 01/14/21 Allergies Allergy/AdvReac Type Severity Reaction Status Date / Time Iodinated Contrast Media Allergy Severe Anaphylaxis Verified 11/02/20 16:18 metformin Allergy Severe Stopped Verified 11/02/20 16:18 Breathing Sulfa (Sulfonamide Allergy Severe Anaphylaxis Verified 11/02/20 16:18 Antibiotics) sulfamethoxazole Allergy Severe Anaphylaxis Verified 11/02/20 16:18 famotidine Allergy Intermediate Hives Verified 11/02/20 16:18 losartan Allergy Intermediate SWLLEING Verified 11/02/20 16:18 LIP AND HIVES nebivolol Allergy Intermediate LIP Verified 11/02/20 16:18 SWELLING Quinolones Allergy Intermediate Nervousness Verified 11/02/20 16:18 valsartan Allergy Intermediate HIVES/SOB Verified 11/02/20 16:18 amlodipine Allergy Mild HIVES Verified 11/02/20 16:18 azithromycin Allergy Mild Nervousness Verified 11/02/20 16:18 spironolactone Allergy Mild RASH AND Verified 11/02/20 16:18 ITCHING trimethoprim Allergy Mild RASH Verified 11/02/20 16:18 cephalexin AdvReac Mild Nervousness Verified 11/02/20 16:18 flavoxate AdvReac Mild Nervousness Verified 11/02/20 16:18 levofloxacin AdvReac Mild Nervousness Verified 11/02/20 16:18 lidocaine AdvReac Mild Nervousness Verified 11/02/20 16:18 lisinopril AdvReac Mild Nervousness Verified 11/02/20 16:18 nitrofurantoin AdvReac Mild Nervousness Verified 11/02/20 16:18 oxycodone AdvReac Mild Nervousness Verified 11/02/20 16:18 paroxetine AdvReac Mild Nervousness Verified 11/02/20 16:18 Review of Systems Review of Systems: All systems reviewed & are unremarkable except as noted in HPI and below Constitutional: Constitutional: Denies body ache(s), Denies chills, Denies excessive sweating, Denies fatigue, Denies fever(s), Denies headache(s), Denies lethargy, Denies malaise, Denies weakness and Denies weight loss Eyes: Eyes: Denies blurry vision, Denies change in vision and Denies loss of vision ENT: Denies dizziness, Denies ear discharge, Denies headache(s), Denies lip swelling, Denies epistaxis, Denies nasal congestion, Denies neck pain, Denies throat swelling and Denies tongue swelling Cardiovascular: Cardiovascular: Denies chest pain, Denies chest pain at rest, Denies chest pain with activity, Denies diaphoresis, Denies rapid heart rate, Denies edema, Denies irregular heart rhythm, Denies lightheadedness and Denies palpitations Respiratory: Respiratory: Denies chest congestion and Denies hemoptysis Gastrointestinal: Gastrointestinal: Denies abdominal pain, Denies melena, Denies hematochezia, Denies diarrhea, Denies nausea, Denies vomiting and Denies hematemesis Musculoskeletal: Musculoskeletal: Denies abnormal gait, Denies deformity, Denies joint swelling, Denies limited range
--- NOTE | 2021-03-12 04:55 | PC.NURSE ---
Agree with triage notes. Pt has several complaints including back and rib pain and persistent, dry cough.
--- NOTE | 2021-03-12 04:56 | PC.NURSE ---
pt to ct via wheelchair.
--- NOTE | 2021-03-12 05:02 | PC.NURSE ---
Pt returned from radiology and is in room resting on cart in its lowest position with call button and personal items within reach.
[2021-03-12] MEDS: IPRATROPIUM BR 0.02% INH SOLN 0.5 MG/2.5 ML VIAL INHALATION (05:05)
[2021-03-12] MEDS: ALBUTEROL SULFATE NEB 2.5 MG/0.5 ML INH 5 MG INHALATION (05:05)
[2021-03-12 05:06] VITALS: PULSE 64; RESP 14
--- NOTE | 2021-03-12 05:07 | PC.NURSE ---
Pt refused methylprednisolone and states he does not want med because he already took a steroid today. Pt advised the medication is being administered for his breathing and continues to refuse. RT present at bedside for treatment.
[2021-03-12 05:14] VITALS: PULSE 64; RESP 13
[2021-03-12 05:19] VITALS: BP 157/71; PULSE 66; RESP 13; O2SAT 98
[2021-03-12 05:19] LABS: Basophils Percent Auto 0.2 % (0.2-1.2); Eosinophils Absolute Auto 0.1 K/mm3 (0-0.3); Eosinophils Percent Auto 0.7 % (0-4.4); Hematocrit 41.1 % (42.0-52.0); Hemoglobin 12.5 g/dL (14.0-18.0); Immature Granulocyte Absolute 0.03 K/mm3 (0.00-0.031); Immature Granulocyte Percent A 0.3 % (0-0.5); Lymphocytes Absolute Auto 2.54 K/mm3 (0.9-3.2); Lymphocytes Percent Auto 29.1 % (18.3-44.2); Mean Corpuscular HGB Conc 30.4 g/dl (32-36); Mean Corpuscular Hemoglobin 22.3 pg (26-34); Mean Corpuscular Volume 73.3 fl (80-100); Mean Platelet Volume 9.7 fl (7.4-10.4); Monocytes Absolute Auto 0.5 K/mm3 (0.1-0.6); Monocytes Percent Auto 5.7 % (2.6-8.5); Neutrophils Absolute Auto 5.6 K/mm3 (1.3-6.7); Platelet Count Result 210 k/mm3 (150-375); Red Blood Count 5.61 M/mm3 (4.6-6.20); Red Cell Distribution Width 16.9 % (11.5-14.5); White Blood Count 8.7 K/mm3 (4.5-10.0)
[2021-03-12 05:27] LABS: Anion Gap 10 mmol/L (8-16); Blood Urea Nitrogen 19 mg/dL (9-20); Calcium 9.4 mg/dL (8.4-10.2); Carbon Dioxide 29 mmol/L (22-30); Chloride 101 mmol/L (98-107); Estimated CRCL calculation 108 ml/min; Estimated Glomerular Filt Rate > 60; Glucose 97 mg/dL (75-110); Potassium 3.6 mmol/L (3.4-5.0); Sodium 140 mmol/L (137-145)
[2021-03-12 05:36] LABS: NT Pro B Type Natriuretic Pept 149 pg/mL (5-100)
[2021-03-12 05:39] LABS: Troponin I < 0.012 ng/mL (0.000-0.034)
[2021-03-12 06:30] VITALS: BP 140/83; PULSE 66; RESP 19; O2SAT 97
--- NOTE | 2021-03-12 06:31 | PC.NURSE ---
Pt resting on cart in its lowest position and continues to complain of discomfort in ribs. States he is unable to take narcotics to treat pain. Per pt he usually treats with anti inflammatory. Pt remains alert, stable and in no obvious distress with stable vitals. Pt advised to press call button for assistance.
[2021-03-12 06:44] VITALS: BP 140/83; PULSE 66; RESP 19; TEMP 36.8; O2SAT 97
--- NOTE | 2021-03-12 06:55 | PC.NURSE ---
EDMD at bedside to update pt on poc and all questions and concerns addressed.
== END 2021-03-12 06:55 | disposition home or self-care (01) ==
PROVIDERS: Emergency Provider Emergency Medicine
DX: J45.21 Mild intermittent asthma with (acute) exacerbation (principal); J06.9 Acute upper respiratory infection, unspecified; I25.10 Atherosclerotic heart disease of native coronary artery without angina pectoris; F32.9 Major depressive disorder, single episode, unspecified; F41.9 Anxiety disorder, unspecified; I10 Essential (primary) hypertension; I25.2 Old myocardial infarction; E78.5 Hyperlipidemia, unspecified; Z79.1 Long term (current) use of non-steroidal anti-inflammatories (NSAID); Z87.891 Personal history of nicotine dependence
CPT/HCPCS: 36415; 71046; 80048; 83880; 84484; 85025; 93005; 94640; 99284

== ENCOUNTER 2021-03-13 17:42 | Emergency (ER) | payer OTHER, SELFPAY ==
[2021-03-13 17:53] VITALS: BP 161/89; PULSE 79; RESP 16; TEMP 36.6; O2SAT 99
[2021-03-13 17:56] VITALS: BP 161/89; PULSE 79; RESP 16; TEMP 36.6; O2SAT 99
--- NOTE | 2021-03-13 18:14 | ED.MALEGU ---
HPI - Male Genitourinary General Chief complaint: Urogenital-Male Stated complaint: UTI Time Seen by Provider: 03/13/21 18:04 Source: patient, RN notes reviewed and old records reviewed Mode of arrival: ambulatory Limitations: no limitations History of Present Illness HPI Narrative: 51-year-old male who is familiar to this urgent care presents to the [facility] with complaints of urinary pain at 2 AM. Has had another episode this afternoon. Denies any abdominal pain. Has been on Augmentin for sinus infection . Was seen at [facility]. States he was recently tested negative for Covid. Denies being sexually active. States it only hurts when he urinates. Does have a urologist that he has seen in the past and was not able to get in with that person today Related Data Home Medications Medication Instructions Recorded Confirmed alprazolam 2 mg tablet 2 mg PO TID 01/14/21 01/14/21 Allergies Allergy/AdvReac Type Severity Reaction Status Date / Time Iodinated Contrast Media Allergy Severe Anaphylaxis Verified 11/02/20 16:18 metformin Allergy Severe Stopped Verified 11/02/20 16:18 Breathing Sulfa (Sulfonamide Allergy Severe Anaphylaxis Verified 11/02/20 16:18 Antibiotics) sulfamethoxazole Allergy Severe Anaphylaxis Verified 11/02/20 16:18 famotidine Allergy Intermediate Hives Verified 11/02/20 16:18 losartan Allergy Intermediate SWLLEING Verified 11/02/20 16:18 LIP AND HIVES nebivolol Allergy Intermediate LIP Verified 11/02/20 16:18 SWELLING Quinolones Allergy Intermediate Nervousness Verified 11/02/20 16:18 valsartan Allergy Intermediate HIVES/SOB Verified 11/02/20 16:18 amlodipine Allergy Mild HIVES Verified 11/02/20 16:18 azithromycin Allergy Mild Nervousness Verified 11/02/20 16:18 spironolactone Allergy Mild RASH AND Verified 11/02/20 16:18 ITCHING trimethoprim Allergy Mild RASH Verified 11/02/20 16:18 cephalexin AdvReac Mild Nervousness Verified 11/02/20 16:18 flavoxate AdvReac Mild Nervousness Verified 11/02/20 16:18 levofloxacin AdvReac Mild Nervousness Verified 11/02/20 16:18 lidocaine AdvReac Mild Nervousness Verified 11/02/20 16:18 lisinopril AdvReac Mild Nervousness Verified 11/02/20 16:18 nitrofurantoin AdvReac Mild Nervousness Verified 11/02/20 16:18 oxycodone AdvReac Mild Nervousness Verified 11/02/20 16:18 paroxetine AdvReac Mild Nervousness Verified 11/02/20 16:18 Review of Systems Review of Systems: All systems reviewed & are unremarkable except as noted in HPI and below Constitutional: Constitutional: Reports no additional constitutional complaints, Denies body ache(s) and Denies chills Cardiovascular: Cardiovascular: Reports no additional cardiovascular complaints Respiratory: Respiratory: Reports no additional respiratory complaints and Denies cough Gastrointestinal: Gastrointestinal: Reports no additional gastrointestinal complaints and Denies abdominal pain Genitourinary: Genitourinary: Reports as per HPI, Denies hematuria, Denies oliguria, Reports dysuria and Denies urinary frequency Musculoskeletal: Musculoskeletal: Reports no additional musculoskeletal complaints Integumentary/Breasts: Skin/Breast: Reports system reviewed and no additional complaints, except as docu Neurologic: Reports system reviewed and no additional complaints, except as documented Psychiatric: Psychiatric: Reports no additional psychiatric complaints Allergic/Immunologic: Allergic/Immunologic: Reports no additional allergic/immunologic complaints [facility] Past Medical History Medical History Anemia Anxiety Asthma CAD (coronary artery disease) Concussion Depression Diverticulitis Fracture nose, ribs, right knee, thumb, hand, neck GERD (gastroesophageal reflux disease) Heart attack HTN (hypertension) Hyperlipidemia Kidney stone Pleurisy Sinus problem Sleep apnea 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
== END 2021-03-13 18:16 | disposition home or self-care (01) ==
PROVIDERS: Emergency Provider Nurse Practitioner
DX: R30.0 Dysuria (principal); Z87.891 Personal history of nicotine dependence; F41.9 Anxiety disorder, unspecified; J45.909 Unspecified asthma, uncomplicated; I25.10 Atherosclerotic heart disease of native coronary artery without angina pectoris; K21.9 Gastro-esophageal reflux disease without esophagitis; I10 Essential (primary) hypertension; E78.5 Hyperlipidemia, unspecified; G47.30 Sleep apnea, unspecified; Z98.84 Bariatric surgery status
CPT/HCPCS: 81003; 99212; G0463

== ENCOUNTER 2021-05-28 13:35 | Emergency (ER) | payer OTHER, SELFPAY | END 2021-05-28 14:50 | disposition left against medical advice (07) | LOC: EXPCOLL 14:46 | PROVIDERS: Emergency Provider Nurse Practitioner | DX: Z53.21 Procedure and treatment not carried out due to patient leaving prior to being seen by health care provider (principal) | CPT/HCPCS: 99199 ==

== ENCOUNTER 2021-07-01 23:16 | Emergency (ER) | payer OTHER, SELFPAY ==
--- NOTE | ~2021-07-01 | XR_ITS ---
EXAMINATION: XR chest 2V DATE: 07/01/2021 23:53 INDICATION: Left-sided chest pain TECHNIQUE: PA and lateral views of the chest are obtained. COMPARISON: 03/12/2021 FINDINGS: The lungs are free of acute opacities. There is no pleural effusion or pneumothorax. The ca rdiomediastinal silhouette is normal. There is mild thoracic spondylosis. Surgical clips in the upper abdomen on the lateral view are likely from prior cholecystectomy. IMPRESSION: 1. No acute cardiopulmonary abnormality. Reviewed, dictated and finalized at location A.
[2021-07-01 23:24] VITALS: BP 156/97; PULSE 69; RESP 18; TEMP 36.3; O2SAT 97
--- NOTE | 2021-07-01 23:25 | ECG_ITS ---
Measurements Intervals Erick Rate: 67 P: 182 PA: 157 QRS: 169 QRSD: 105 T: 190 QT: 383 QTc: 405 Interpretive Statements SINUS RHYTHM LIMB LEAD REVERSAL BORDERLINE T WAVE ABNORMALITY- INFERIOR LEADS BASELINE ARTIFACT- I, AVL, V2 BORDERLINE ECG Electronically Signed On 07-02-2021 6:36:40 CDT by Yonathan Ross D.O.
--- NOTE | 2021-07-01 23:50 | ED.CHESTPAIN ---
HPI - Chest Pain General Chief Complaint: Chest Pain Stated Complaint: chest pain Time Seen by Provider: 07/01/21 23:46 Source: patient Mode of arrival: ambulatory Limitations: no limitations History of Present Illness HPI narrative: Patient is a 51-year-old male complaining of chest pain, midsternal, pressure, 6 out of 10, radiating to left upper extremity accompanied by nausea and diaphoresis started but worse tonight. Patient denies any shortness of breath, abdominal pain, vomiting, fever or chills. Related Data Home Medications Medication Instructions Recorded Confirmed alprazolam 2 mg tablet 2 mg PO TID 01/14/21 01/14/21 Allergies Allergy/AdvReac Type Severity Reaction Status Date / Time Iodinated Contrast Media Allergy Severe Anaphylaxis Verified 11/02/20 16:18 metformin Allergy Severe Stopped Verified 11/02/20 16:18 Breathing Sulfa (Sulfonamide Allergy Severe Anaphylaxis Verified 11/02/20 16:18 Antibiotics) sulfamethoxazole Allergy Severe Anaphylaxis Verified 11/02/20 16:18 famotidine Allergy Intermediate Hives Verified 11/02/20 16:18 losartan Allergy Intermediate SWLLEING Verified 11/02/20 16:18 LIP AND HIVES nebivolol Allergy Intermediate LIP Verified 11/02/20 16:18 SWELLING Quinolones Allergy Intermediate Nervousness Verified 11/02/20 16:18 valsartan Allergy Intermediate HIVES/SOB Verified 11/02/20 16:18 amlodipine Allergy Mild HIVES Verified 11/02/20 16:18 azithromycin Allergy Mild Nervousness Verified 11/02/20 16:18 spironolactone Allergy Mild RASH AND Verified 11/02/20 16:18 ITCHING trimethoprim Allergy Mild RASH Verified 11/02/20 16:18 cephalexin AdvReac Mild Nervousness Verified 11/02/20 16:18 flavoxate AdvReac Mild Nervousness Verified 11/02/20 16:18 levofloxacin AdvReac Mild Nervousness Verified 11/02/20 16:18 lidocaine AdvReac Mild Nervousness Verified 11/02/20 16:18 lisinopril AdvReac Mild Nervousness Verified 11/02/20 16:18 nitrofurantoin AdvReac Mild Nervousness Verified 11/02/20 16:18 oxycodone AdvReac Mild Nervousness Verified 11/02/20 16:18 paroxetine AdvReac Mild Nervousness Verified 11/02/20 16:18 Review of Systems Review of Systems: All systems reviewed & are unremarkable except as noted in HPI and below Constitutional: Constitutional: Denies body ache(s), Denies chills, Denies excessive sweating, Denies fatigue, Denies fever(s), Denies headache(s), Denies lethargy, Denies malaise, Denies weakness and Denies weight loss Eyes: Eyes: Denies blurry vision, Denies change in vision and Denies loss of vision ENT: Denies dizziness, Denies ear discharge, Denies headache(s), Denies lip swelling, Denies epistaxis, Denies nasal congestion, Denies neck pain, Denies throat swelling and Denies tongue swelling Cardiovascular: Cardiovascular: Denies rapid heart rate, Denies edema, Denies irregular heart rhythm, Denies lightheadedness, Denies palpitations, Denies dyspnea and Denies dyspnea on exertion Respiratory: Respiratory: Denies chest congestion, Denies cough, Denies hemoptysis, Denies dyspnea and Denies dyspnea on exertion Gastrointestinal: Gastrointestinal: Denies abdominal pain, Denies melena, Denies hematochezia, Denies diarrhea, Denies vomiting and Denies hematemesis Musculoskeletal: Musculoskeletal: Denies abnormal gait, Denies deformity, Denies joint swelling, Denies limited range of motion, Denies neck pain and Denies numbness Neurologic: Denies Abnormal speech present, Denies abnormal gait, Denies confusion, Denies dizziness, Denies headache(s), Denies focal weakness, Denies loss of vision, Denies numbness, Denies Other visual disturbances, Denies Sensory deficit (Neuro) and Denies weakness Psychiatric: Psychiatric: Denies confusion, Denies depression, Denies auditory hallucinations, Denies homicidal ideation and Denies suicidal ideation Endocrine: Endocrine: Denies cold intolerance, Denies excessive sweating, Denies fatigue, Denies heat intolerance and Denies palpi
[2021-07-01] MEDS: ASPIRIN 81 MG CHEWABLE TABLET 324 MG PO (23:58)
[2021-07-01 23:59] LABS: Anion Gap 11 mmol/L (8-16); Blood Urea Nitrogen 14 mg/dL (9-20); Calcium 9.1 mg/dL (8.4-10.2); Carbon Dioxide 28 mmol/L (22-30); Chloride 101 mmol/L (98-107); Estimated CRCL calculation 128 ml/min; Estimated Glomerular Filt Rate > 60; Glucose 177 mg/dL (65-110); Potassium 3.4 mmol/L (3.4-5.0); Sodium 140 mmol/L (137-145)
[2021-07-02 00:11] LABS: Troponin I < 0.012 ng/mL (0.000-0.034)
[2021-07-02 00:17] LABS: Prothrombin Time 12.9 Seconds (11.1-14.7)
[2021-07-02 00:18] LABS: Partial Thromboplastin Time 35.5 SECONDS (22.3-36.8)
[2021-07-02 00:24] LABS: Basophils Percent Auto 0.6 % (0.2-1.2); Eosinophils Absolute Auto 0.1 K/mm3 (0-0.3); Eosinophils Percent Auto 2.8 % (0-4.4); Hematocrit 39.3 % (42.0-52.0); Hemoglobin 12.3 g/dL (14.0-18.0); Immature Granulocyte Absolute 0.01 K/mm3 (0.00-0.031); Immature Granulocyte Percent A 0.2 % (0-0.5); Lymphocytes Absolute Auto 1.69 K/mm3 (0.9-3.2); Mean Corpuscular HGB Conc 31.3 g/dl (32-36); Mean Corpuscular Hemoglobin 22.1 pg (26-34); Mean Corpuscular Volume 70.6 fl (80-100); Mean Platelet Volume 9.2 fl (7.4-10.4); Monocytes Absolute Auto 0.3 K/mm3 (0.1-0.6); Monocytes Percent Auto 5.3 % (2.6-8.5); Neutrophils Absolute Auto 2.6 K/mm3 (1.3-6.7); Neutrophils Percent Auto 55.1 % (45.5-73.1); Platelet Count Result 188 k/mm3 (150-375); Red Blood Count 5.57 M/mm3 (4.6-6.20); Red Cell Distribution Width 16.7 % (11.5-14.5); White Blood Count 4.7 K/mm3 (4.5-10.0)
--- NOTE | 2021-07-02 00:30 | PC.NURSE ---
pt. repeatedly asking RN and ERP to bedside to further discuss w/ the doctor wants to admit him instead of prescribing a steroid for inflammation, pt. educated that his change in EKG was abnormal. and it is advised by [facility] to keep pt. due to heart score. pt. requesting a new EKG stating It is absurd to compare one ekg to another. pt. requesting a repeat ekg. ERP educated the pt. that it is unnecessary to preform a repeat ekg and not clinically indicated. pt, also stating that his TNI was negative so he does not need to be admitted for that. ERP advised pt. to stay in hospital for further evaluation but said pt. can sign out AMA if he wished.
== END 2021-07-02 01:00 | disposition left against medical advice (07) ==
PROVIDERS: Emergency Provider Emergency Medicine
DX: R07.2 Precordial pain (principal); F41.9 Anxiety disorder, unspecified; J45.909 Unspecified asthma, uncomplicated; I25.10 Atherosclerotic heart disease of native coronary artery without angina pectoris; K21.9 Gastro-esophageal reflux disease without esophagitis; I10 Essential (primary) hypertension; E78.5 Hyperlipidemia, unspecified; Z87.442 Personal history of urinary calculi; G47.30 Sleep apnea, unspecified; Z98.84 Bariatric surgery status; Z87.891 Personal history of nicotine dependence; R94.31 Abnormal electrocardiogram [ECG] [EKG]
CPT/HCPCS: 36415; 71046; 80048; 84484; 85025; 85610; 85730; 93005; 99284; A9270

== ENCOUNTER 2021-09-04 16:28 | Emergency (ER) | payer OTHER, SELFPAY ==
[2021-09-04 16:47] VITALS: BP 153/83; PULSE 66; RESP 18; TEMP 36.6; O2SAT 100
--- NOTE | 2021-09-04 16:58 | ED.EYEPROB ---
HPI - Eye Problem General Chief complaint: Eye Problems Stated complaint: sinus infection Source: patient and RN notes reviewed Mode of arrival: ambulatory History of Present Illness HPI Narrative: This is a 51-year-old male that is well-known to his establishment that is here today with complaints of left eye pain in left muscle chest pain. According to patient a couple of days he started to experience pain to his left eye he did note that there was a eyelash in his eye. Patient unable to complete the split lamp test due to his lidocaine allergy. Patient also notes that he has muscle chest pain when he inhales. Patient did go and see his toby maker today who knows that is possibly due to his rib disorder. I informed patient that he will need to follow-up with his toby maker concerning cardiac issues. Today we will treat patient with steroids to his he does have antibiotics at home for his eye and notes that he need a refill on his Flexeril. The patient denies SOB, CP, palpitation, extremity numbness, lightheadedness, dizziness, constipation, diarrhea, chills, or fever. Related Data Home Medications Medication Instructions Recorded Confirmed alprazolam 2 mg tablet 2 mg PO TID 01/14/21 01/14/21 atenolol 09/04/21 cyclobenzaprine mg 09/04/21 escitalopram oxalate mg 09/04/21 omeprazole 09/04/21 Allergies Allergy/AdvReac Type Severity Reaction Status Date / Time Iodinated Contrast Media Allergy Severe Anaphylaxis Verified 11/02/20 16:18 metformin Allergy Severe Stopped Verified 11/02/20 16:18 Breathing Sulfa (Sulfonamide Allergy Severe Anaphylaxis Verified 11/02/20 16:18 Antibiotics) sulfamethoxazole Allergy Severe Anaphylaxis Verified 11/02/20 16:18 famotidine Allergy Intermediate Hives Verified 11/02/20 16:18 losartan Allergy Intermediate SWLLEING Verified 11/02/20 16:18 LIP AND HIVES nebivolol Allergy Intermediate LIP Verified 11/02/20 16:18 SWELLING Quinolones Allergy Intermediate Nervousness Verified 11/02/20 16:18 valsartan Allergy Intermediate HIVES/SOB Verified 11/02/20 16:18 amlodipine Allergy Mild HIVES Verified 11/02/20 16:18 azithromycin Allergy Mild Nervousness Verified 11/02/20 16:18 spironolactone Allergy Mild RASH AND Verified 11/02/20 16:18 ITCHING trimethoprim Allergy Mild RASH Verified 11/02/20 16:18 cephalexin AdvReac Mild Nervousness Verified 11/02/20 16:18 flavoxate AdvReac Mild Nervousness Verified 11/02/20 16:18 levofloxacin AdvReac Mild Nervousness Verified 11/02/20 16:18 lidocaine AdvReac Mild Nervousness Verified 11/02/20 16:18 lisinopril AdvReac Mild Nervousness Verified 11/02/20 16:18 nitrofurantoin AdvReac Mild Nervousness Verified 11/02/20 16:18 oxycodone AdvReac Mild Nervousness Verified 11/02/20 16:18 paroxetine AdvReac Mild Nervousness Verified 11/02/20 16:18 Review of Systems Review of Systems: A 14 organ system Review of Systems was performed and pertinent positives included in the HPI, otherwise remaining ROS is negative. 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
== END 2021-09-04 17:47 | disposition home or self-care (01) ==
PROVIDERS: Emergency Provider Nurse Practitioner
DX: H20.9 Unspecified iridocyclitis (principal); T14.8XXA Other injury of unspecified body region, initial encounter; I25.10 Atherosclerotic heart disease of native coronary artery without angina pectoris; I10 Essential (primary) hypertension; E78.5 Hyperlipidemia, unspecified; I25.2 Old myocardial infarction; Z87.891 Personal history of nicotine dependence; X58.XXXA Exposure to other specified factors, initial encounter
CPT/HCPCS: 99213; G0463

== ENCOUNTER 2021-09-11 19:26 | Emergency (ER) | payer OTHER, SELFPAY ==
[2021-09-11 19:36] VITALS: BP 141/91; PULSE 65; RESP 16; TEMP 36.1; O2SAT 98
--- NOTE | 2021-09-11 21:42 | ED.EYEPROB ---
HPI - Eye Problem General Chief complaint: Eye Problems Stated complaint: Meds not working/other Source: patient and RN notes reviewed Limitations: no limitations History of Present Illness HPI Narrative: The patient, a non-smoker/nondrinker with mood disorder and multiple prior visits( usually before closing), presents with reportedly eye discomfort. Patient states he is recently on tobradex and colon/ GI antibiotics of Toshia Covarrubias after hospital visit where he was seen & discharged; available labs from late are noncontributory except usually noncompliant, elevated sugars [he also mentions urinary frequency w/o dysuria and noncompliance with diabetic meds for HgA1c 6-7]. He complains now of mostly right eye discomfort and associated mild RUSSO, nasal congestion; he also mentions of the recent increase in stressors pending legal actions for which he has enough alprazolam. No photophobia, injury, foreign body, sig redness fever -but he has always had intermittent chills. He also requests refill of prior inhalers; patient advised to see eye doctor in follow-up Related Data Home Medications Medication Instructions Recorded Confirmed alprazolam 2 mg tablet 2 mg PO TID 01/14/21 09/11/21 atenolol 100 mg PO DAILY 09/04/21 09/11/21 omeprazole 40 mg PO DAILY 09/04/21 09/11/21 Allergies Allergy/AdvReac Type Severity Reaction Status Date / Time Iodinated Contrast Media Allergy Severe Anaphylaxis Verified 09/11/21 19:33 metformin Allergy Severe Stopped Verified 09/11/21 19:33 Breathing Sulfa (Sulfonamide Allergy Severe Anaphylaxis Verified 09/11/21 19:33 Antibiotics) sulfamethoxazole Allergy Severe Anaphylaxis Verified 09/11/21 19:33 famotidine Allergy Intermediate Hives Verified 09/11/21 19:33 losartan Allergy Intermediate SWLLEING Verified 09/11/21 19:33 LIP AND HIVES nebivolol Allergy Intermediate LIP Verified 09/11/21 19:33 SWELLING Quinolones Allergy Intermediate Nervousness Verified 09/11/21 19:33 valsartan Allergy Intermediate HIVES/SOB Verified 09/11/21 19:33 amlodipine Allergy Mild HIVES Verified 09/11/21 19:33 azithromycin Allergy Mild Nervousness Verified 09/11/21 19:33 spironolactone Allergy Mild RASH AND Verified 09/11/21 19:33 ITCHING trimethoprim Allergy Mild RASH Verified 09/11/21 19:33 cephalexin AdvReac Mild Nervousness Verified 09/11/21 19:33 flavoxate AdvReac Mild Nervousness Verified 09/11/21 19:33 levofloxacin AdvReac Mild Nervousness Verified 09/11/21 19:33 lidocaine AdvReac Mild Nervousness Verified 09/11/21 19:33 lisinopril AdvReac Mild Nervousness Verified 09/11/21 19:33 nitrofurantoin AdvReac Mild Nervousness Verified 09/11/21 19:33 oxycodone AdvReac Mild Nervousness Verified 09/11/21 19:33 paroxetine AdvReac Mild Nervousness Verified 09/11/21 19:33 Review of Systems Review of Systems: General/Constitutional: No weight loss,fever Eyes: N0: Redness,discharge Ears/Nose/Throat: No: Epistaxis,ear discharge Respiratory: Denies: Hemoptysis Gastrointestinal: No Vomiting, Bleeding-rectal Skin: No Lumps, eruption Neurologic: No Focal Weakness,Sz Hematologic: Denies: Petechiae/Purpura Psychiatric: No: Suicida ideationl All Other Systems: Reviewed and Negative [facility], [facility] Past Medical History Medical History (Updated 09/19/21 @ 14:57 by Adin Portillo MD) Anemia Anxiety Asthma CAD (coronary artery disease) Concussion Depression Diverticulitis Fracture nose, ribs, right knee, thumb, hand, neck GERD (gastroesophageal reflux disease) Heart attack HTN (hypertension) Hyperlipidemia Kidney stone Pleurisy Sinus problem Sleep apnea 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
== END 2021-09-11 21:18 | disposition home or self-care (01) ==
PROVIDERS: Emergency Provider Emergency Medicine
DX: H10.501 Unspecified blepharoconjunctivitis, right eye (principal); Z87.891 Personal history of nicotine dependence; J45.909 Unspecified asthma, uncomplicated; I25.10 Atherosclerotic heart disease of native coronary artery without angina pectoris; K21.9 Gastro-esophageal reflux disease without esophagitis; I25.2 Old myocardial infarction; I10 Essential (primary) hypertension; R78.5 Finding of other psychotropic drug in blood; G47.30 Sleep apnea, unspecified; Z98.84 Bariatric surgery status; F41.9 Anxiety disorder, unspecified
CPT/HCPCS: 81003; 87086; 99213; G0463

== ENCOUNTER 2021-09-23 08:12 | Emergency (ER) | payer OTHER, SELFPAY ==
--- NOTE | 2021-09-23 08:16 | ED.URI ---
HPI - URI/Sore Throat General Chief Complaint: Upper Respiratory Infection Stated Complaint: ear pain/sinus infection Time Seen by Provider: 09/23/21 08:19 Source: patient, family, RN notes reviewed and old records reviewed Mode of arrival: ambulatory Limitations: no limitations History of Present Illness HPI Narrative: 51-year-old male who presents to the [facility] with postnasal drainage and right ear pain. Patient has chronic postnasal drainage and chronic ear pain. States its been going on since 11 September. Was evaluated on 11 September and was prescribed amoxicillin at that time. Patient states he cannot get in with a primary care provider or his ENT, chiropractor or psychiatrist because they all have COVID. Related Data Home Medications Medication Instructions Recorded Confirmed alprazolam 2 mg tablet 2 mg PO TID 01/14/21 09/23/21 atenolol 100 mg PO DAILY 09/04/21 09/23/21 omeprazole 40 mg PO DAILY 09/04/21 09/23/21 fluticasone propionate 2 spray INTRANASAL DAILY 09/23/21 09/23/21 Allergies Allergy/AdvReac Type Severity Reaction Status Date / Time Iodinated Contrast Media Allergy Severe Anaphylaxis Verified 09/23/21 08:35 metformin Allergy Severe Stopped Verified 09/23/21 08:35 Breathing Sulfa (Sulfonamide Allergy Severe Anaphylaxis Verified 09/23/21 08:35 Antibiotics) sulfamethoxazole Allergy Severe Anaphylaxis Verified 09/23/21 08:35 famotidine Allergy Intermediate Hives Verified 09/23/21 08:35 losartan Allergy Intermediate SWLLEING Verified 09/23/21 08:35 LIP AND HIVES nebivolol Allergy Intermediate LIP Verified 09/23/21 08:35 SWELLING Quinolones Allergy Intermediate Nervousness Verified 09/23/21 08:35 valsartan Allergy Intermediate HIVES/SOB Verified 09/23/21 08:35 amlodipine Allergy Mild HIVES Verified 09/23/21 08:35 azithromycin Allergy Mild Nervousness Verified 09/23/21 08:35 spironolactone Allergy Mild RASH AND Verified 09/23/21 08:35 ITCHING trimethoprim Allergy Mild RASH Verified 09/23/21 08:35 cephalexin AdvReac Mild Nervousness Verified 09/23/21 08:35 flavoxate AdvReac Mild Nervousness Verified 09/23/21 08:35 levofloxacin AdvReac Mild Nervousness Verified 09/23/21 08:35 lidocaine AdvReac Mild Nervousness Verified 09/23/21 08:35 lisinopril AdvReac Mild Nervousness Verified 09/23/21 08:35 nitrofurantoin AdvReac Mild Nervousness Verified 09/23/21 08:35 oxycodone AdvReac Mild Nervousness Verified 09/23/21 08:35 paroxetine AdvReac Mild Nervousness Verified 09/23/21 08:35 Review of Systems Review of Systems: All systems reviewed & are unremarkable except as noted in HPI and below Constitutional: Constitutional: Reports no additional constitutional complaints, Denies chills, Denies fever(s) and Denies headache(s) Eyes: Eyes: Reports no additional eye complaints ENT: Reports as per HPI, Denies vertigo, Denies dizziness, Denies headache(s), Reports nasal congestion, Reports post nasal drip, Reports sinus pressure and Denies sore throat Comments: Bilateral ear pain, right x2 days, left today Cardiovascular: Cardiovascular: Reports no additional cardiovascular complaints, Denies chest pain, Denies syncope, Denies rapid heart rate and Denies dyspnea Respiratory: Respiratory: Reports no additional respiratory complaints, Denies cough, Denies dyspnea and Denies wheezing Gastrointestinal: Gastrointestinal: Reports no additional gastrointestinal complaints, Denies abdominal pain, Denies diarrhea, Denies nausea and Denies vomiting Musculoskeletal: Musculoskeletal: Reports no additional musculoskeletal complaints and Denies numbness Integumentary/Breasts: Skin/Breast: Reports system reviewed and no additional complaints, except as docu Neurologic: Reports system reviewed and no additional complaints, except as documented, Denies vertigo, Denies dizziness, Denies syncope, Denies headache(s), Denies focal weakness and Denies numbness Psychiatric: Psychiatric: Reports no additional psychiatric
[2021-09-23 08:20] VITALS: BP 125/100; PULSE 65; RESP 16; TEMP 36.6; O2SAT 99
== END 2021-09-23 08:50 | disposition home or self-care (01) ==
PROVIDERS: Emergency Provider Nurse Practitioner
DX: J06.9 Acute upper respiratory infection, unspecified (principal); J32.4 Chronic pansinusitis; H65.06 Acute serous otitis media, recurrent, bilateral; Z87.891 Personal history of nicotine dependence; J45.909 Unspecified asthma, uncomplicated; I25.10 Atherosclerotic heart disease of native coronary artery without angina pectoris; K21.9 Gastro-esophageal reflux disease without esophagitis; I10 Essential (primary) hypertension; E78.5 Hyperlipidemia, unspecified; G47.30 Sleep apnea, unspecified; Z98.84 Bariatric surgery status; F41.9 Anxiety disorder, unspecified
CPT/HCPCS: 87804; 99213; G0463

== ENCOUNTER 2021-10-10 18:33 | Emergency (ER) | payer OTHER, SELFPAY ==
--- NOTE | ~2021-10-10 | XR_ITS ---
XR chest 2V DATE: 10/10/2021 19:19 INDICATION: Cough TECHNIQUE: PA and lateral views COMPARISON: 07/01/2021 PA and lateral chest FINDINGS: Normal heart size. No hilar or mediastinal enlargement. No pulmonary infiltrate or consolid ation, pleural effusion or pulmonary vascular congestion or pneumothorax. Surgical clips overlie the upper abdomen on lateral view, likely due to cholecystectomy. Mild levoscoliosis of the upper thoracic spine. IMPRESSION: No active cardiopulmonary disease Reviewed, dictated and finalized at location A. ANALYST
--- NOTE | 2021-10-10 18:44 | ED.URI ---
HPI - URI/Sore Throat General Chief Complaint: Upper Respiratory Infection Stated Complaint: Sinus complaint Time Seen by Provider: 10/10/21 18:49 Source: patient Mode of arrival: ambulatory Limitations: no limitations History of Present Illness HPI Narrative: 51-year-old male presented for complaint of sensation of shortness of breath, left ear pain and frontal headache. He would also like a refill on his atenolol stating he has not established with a new PCP. He has switched psychiatrist recently. Endorses more frequent and more severe panic attacks while trying to wean Xanax. He has also been taking Sudafed for sinus symptoms. He was seen by his chiropractor for TMJ pain and was adjusted this week. denies cough, wheezing, chest pain, palpitations, nausea, vomiting, diarrhea, fever or chills. Multiple allergies, not vaccinated for covid. MD elicited complaint: cough Related Data Home Medications Medication Instructions Recorded Confirmed alprazolam 2 mg tablet 2 mg PO TID 01/14/21 09/23/21 atenolol 100 mg PO DAILY 09/04/21 09/23/21 omeprazole 40 mg PO DAILY 09/04/21 09/23/21 fluticasone propionate 2 spray INTRANASAL DAILY 09/23/21 09/23/21 Allergies Allergy/AdvReac Type Severity Reaction Status Date / Time Iodinated Contrast Media Allergy Severe Anaphylaxis Verified 09/23/21 08:35 metformin Allergy Severe Stopped Verified 09/23/21 08:35 Breathing Sulfa (Sulfonamide Allergy Severe Anaphylaxis Verified 09/23/21 08:35 Antibiotics) sulfamethoxazole Allergy Severe Anaphylaxis Verified 09/23/21 08:35 famotidine Allergy Intermediate Hives Verified 09/23/21 08:35 losartan Allergy Intermediate SWLLEING Verified 09/23/21 08:35 LIP AND HIVES nebivolol Allergy Intermediate LIP Verified 09/23/21 08:35 SWELLING Quinolones Allergy Intermediate Nervousness Verified 09/23/21 08:35 valsartan Allergy Intermediate HIVES/SOB Verified 09/23/21 08:35 amlodipine Allergy Mild HIVES Verified 09/23/21 08:35 azithromycin Allergy Mild Nervousness Verified 09/23/21 08:35 spironolactone Allergy Mild RASH AND Verified 09/23/21 08:35 ITCHING trimethoprim Allergy Mild RASH Verified 09/23/21 08:35 cephalexin AdvReac Mild Nervousness Verified 09/23/21 08:35 flavoxate AdvReac Mild Nervousness Verified 09/23/21 08:35 levofloxacin AdvReac Mild Nervousness Verified 09/23/21 08:35 lidocaine AdvReac Mild Nervousness Verified 09/23/21 08:35 lisinopril AdvReac Mild Nervousness Verified 09/23/21 08:35 nitrofurantoin AdvReac Mild Nervousness Verified 09/23/21 08:35 oxycodone AdvReac Mild Nervousness Verified 09/23/21 08:35 paroxetine AdvReac Mild Nervousness Verified 09/23/21 08:35 Review of Systems Review of Systems: CONSTITUTIONAL: denies malaise, chills, sweats, fever. EYES: Denies visual changes, redness, or discharge. ENT: Reports congestion, sinus pain, otalgia CARDIOVASCULAR: Denies chest pain, palpitations, or edema. RESPIRATORY: Reports cough, post nasal drainage. Denies dyspnea. GASTROINTESTINAL: Denies abdominal pain, nausea, vomiting, diarrhea SKIN: Denies rash or itching. MUSCULOSKELETAL: denies myalgia. NEUROLOGIC: Denies headache. 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
[2021-10-10 18:45] VITALS: BP 155/90; PULSE 75; RESP 16; TEMP 35.9; O2SAT 100
== END 2021-10-10 19:46 | disposition home or self-care (01) ==
PROVIDERS: Emergency Provider Nurse Practitioner Family
DX: F41.9 Anxiety disorder, unspecified (principal); H66.002 Acute suppurative otitis media without spontaneous rupture of ear drum, left ear; Z87.891 Personal history of nicotine dependence; J45.909 Unspecified asthma, uncomplicated; I25.10 Atherosclerotic heart disease of native coronary artery without angina pectoris; K21.9 Gastro-esophageal reflux disease without esophagitis; I10 Essential (primary) hypertension; E78.5 Hyperlipidemia, unspecified; G47.30 Sleep apnea, unspecified; Z98.84 Bariatric surgery status
CPT/HCPCS: 71046; 99213; G0463

== ENCOUNTER 2021-11-03 08:23 | Emergency (ER) | payer OTHER, SELFPAY ==
--- NOTE | 2021-11-03 08:33 | ED.ABDPAIN ---
HPI - Abdominal Pain General Chief Complaint: Abdominal Pain Stated Complaint: Diverticulitis Flare Time Seen by Provider: 11/03/21 08:35 Source: patient, RN notes reviewed and old records reviewed Mode of arrival: ambulatory Limitations: no limitations History of Present Illness HPI narrative: 51-year-old male presents to the [facility] with complaints of a diverticulitis flare. Patient reports having a history of diverticulitis. Per medical record he does have a history. States whenever he gets these flares he gets Cipro and Flagyl, states he has no reaction to either of them even though he does have a reaction to levofloxacin. Reports having a GI appointment with Dr. Grijalva in mid November. Also states that he is setting up an appointment with a new primary care provider Dr. Wilson in [facility]. Patient denies any fevers, nausea, vomiting or diarrhea. Denies any chest pain or shortness of breath. Has left lower quadrant tenderness MD elicited complaint: abdominal pain Related Data Home Medications Medication Instructions Recorded Confirmed alprazolam 2 mg tablet 2 mg PO TID 01/14/21 11/03/21 atenolol 100 mg PO DAILY 09/04/21 11/03/21 omeprazole 40 mg PO DAILY 09/04/21 11/03/21 fluticasone propionate 2 spray INTRANASAL DAILY 09/23/21 11/03/21 Allergies Allergy/AdvReac Type Severity Reaction Status Date / Time Iodinated Contrast Media Allergy Severe Anaphylaxis Verified 11/03/21 08:43 metformin Allergy Severe Stopped Verified 11/03/21 08:43 Breathing Sulfa (Sulfonamide Allergy Severe Anaphylaxis Verified 11/03/21 08:43 Antibiotics) sulfamethoxazole Allergy Severe Anaphylaxis Verified 11/03/21 08:43 famotidine Allergy Intermediate Hives Verified 11/03/21 08:43 losartan Allergy Intermediate SWLLEING Verified 11/03/21 08:43 LIP AND HIVES nebivolol Allergy Intermediate LIP Verified 11/03/21 08:43 SWELLING Quinolones Allergy Intermediate Nervousness Verified 11/03/21 08:43 valsartan Allergy Intermediate HIVES/SOB Verified 11/03/21 08:43 amlodipine Allergy Mild HIVES Verified 11/03/21 08:43 azithromycin Allergy Mild Nervousness Verified 11/03/21 08:43 spironolactone Allergy Mild RASH AND Verified 11/03/21 08:43 ITCHING trimethoprim Allergy Mild RASH Verified 11/03/21 08:43 cephalexin AdvReac Mild Nervousness Verified 11/03/21 08:43 flavoxate AdvReac Mild Nervousness Verified 11/03/21 08:43 levofloxacin AdvReac Mild Nervousness Verified 11/03/21 08:43 lidocaine AdvReac Mild Nervousness Verified 11/03/21 08:43 lisinopril AdvReac Mild Nervousness Verified 11/03/21 08:43 nitrofurantoin AdvReac Mild Nervousness Verified 11/03/21 08:43 oxycodone AdvReac Mild Nervousness Verified 11/03/21 08:43 paroxetine AdvReac Mild Nervousness Verified 11/03/21 08:43 Review of Systems Review of Systems: All systems reviewed & are unremarkable except as noted in HPI and below Constitutional: Constitutional: Reports no additional constitutional complaints, Denies body ache(s), Denies chills and Denies fever(s) Eyes: Eyes: Reports no additional eye complaints ENT: Reports system reviewed and no additional complaints, except as documented Cardiovascular: Cardiovascular: Reports no additional cardiovascular complaints, Denies chest pain and Denies dyspnea Respiratory: Respiratory: Reports no additional respiratory complaints, Denies cough and Denies dyspnea Gastrointestinal: Gastrointestinal: Reports as per HPI, Reports abdominal pain (Left lower quadrant), Denies diarrhea, Denies nausea and Denies vomiting Genitourinary: Genitourinary: Reports no additional male genitourinary complaints Musculoskeletal: Musculoskeletal: Reports no additional musculoskeletal complaints and Denies back pain Integumentary/Breasts: Skin/Breast: Reports system reviewed and no additional complaints, except as docu Neurologic: Reports system reviewed and no additional complaints, except as documented Psychiatric: Psychiatric: Reports no additio
[2021-11-03 08:40] VITALS: BP 149/97; PULSE 68; RESP 18; TEMP 36.3; O2SAT 100
== END 2021-11-03 08:50 | disposition home or self-care (01) ==
PROVIDERS: Emergency Provider Nurse Practitioner; PCP Family Medicine
DX: K57.92 Diverticulitis of intestine, part unspecified, without perforation or abscess without bleeding (principal); Z87.891 Personal history of nicotine dependence; J45.909 Unspecified asthma, uncomplicated; I25.10 Atherosclerotic heart disease of native coronary artery without angina pectoris; K21.9 Gastro-esophageal reflux disease without esophagitis; I25.2 Old myocardial infarction; I10 Essential (primary) hypertension; E78.5 Hyperlipidemia, unspecified; G47.30 Sleep apnea, unspecified; Z98.84 Bariatric surgery status; F41.9 Anxiety disorder, unspecified
CPT/HCPCS: 99213; G0463

== ENCOUNTER 2021-12-23 10:36 | Emergency (ER) | payer OTHER, SELFPAY ==
[2021-12-23 10:43] VITALS: BP 171/80; PULSE 66; RESP 16; TEMP 36.9; O2SAT 99
--- NOTE | 2021-12-23 11:21 | ED.ABDPAIN ---
HPI - Abdominal Pain General Chief Complaint: Abdominal Pain Stated Complaint: Abdominal Pain Time Seen by Provider: 12/23/21 10:37 Source: patient Mode of arrival: ambulatory Limitations: no limitations History of Present Illness HPI narrative: 51-year-old male presents to [facility] with complaints of dull left-sided lower abdominal pains, fevers up to 102, chills and nausea for the past 3 days. Patient reports he has a long history of diverticulitis. Patient reports that he has a prescription of Flagyl at home but is requesting a prescription for ciprofloxacin. Patient denies vomiting, diarrhea, body aches or chills. Patient reports that he attempted to see a GI doctor but was not happy with the office. 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 Patient reports that he is not able to tolerate Augmentin. MD elicited complaint: abdominal pain Pertinent past history: diverticulitis Onset (ago): day(s) (3) Quality: dull Radiation: none Migration to: no migration Exacerbating factors: nothing Relieving factors: nothing Associated symptoms: fever and other (chills, nausea ) Related Data Home Medications Medication Instructions Recorded Confirmed alprazolam 2 mg tablet 2 mg PO TID 01/14/21 12/23/21 atenolol 100 mg PO DAILY 09/04/21 12/23/21 omeprazole 40 mg PO DAILY 09/04/21 12/23/21 Allergies Allergy/AdvReac Type Severity Reaction Status Date / Time Iodinated Contrast Media Allergy Severe Anaphylaxis Verified 12/23/21 10:54 metformin Allergy Severe Stopped Verified 12/23/21 10:54 Breathing Sulfa (Sulfonamide Allergy Severe Anaphylaxis Verified 12/23/21 10:54 Antibiotics) sulfamethoxazole Allergy Severe Anaphylaxis Verified 12/23/21 10:54 famotidine Allergy Intermediate Hives Verified 12/23/21 10:54 losartan Allergy Intermediate SWLLEING Verified 12/23/21 10:54 LIP AND HIVES nebivolol Allergy Intermediate LIP Verified 12/23/21 10:54 SWELLING Quinolones Allergy Intermediate Nervousness Verified 12/23/21 10:54 valsartan Allergy Intermediate HIVES/SOB Verified 12/23/21 10:54 amlodipine Allergy Mild HIVES Verified 12/23/21 10:54 azithromycin Allergy Mild Nervousness Verified 12/23/21 10:54 spironolactone Allergy Mild RASH AND Verified 12/23/21 10:54 ITCHING trimethoprim Allergy Mild RASH Verified 12/23/21 10:54 cephalexin AdvReac Mild Nervousness Verified 12/23/21 10:54 flavoxate AdvReac Mild Nervousness Verified 12/23/21 10:54 levofloxacin AdvReac Mild Nervousness Verified 12/23/21 10:54 lidocaine AdvReac Mild Nervousness Verified 12/23/21 10:54 lisinopril AdvReac Mild Nervousness Verified 12/23/21 10:54 nitrofurantoin AdvReac Mild Nervousness Verified 12/23/21 10:54 oxycodone AdvReac Mild Nervousness Verified 12/23/21 10:54 paroxetine AdvReac Mild Nervousness Verified 12/23/21 10:54 Review of Systems Constitutional: Constitutional: Reports chills, Reports fever(s) and Denies weakness Cardiovascular: Cardiovascular: Denies chest pain Respiratory: Respiratory: Denies chest congestion, Denies cough, Denies dyspnea and Denies wheezing Gastrointestinal: Gastrointestinal: Reports abdominal pain, Denies diarrhea, Denies nausea and Denies vomiting Integumentary/Breasts: Skin/Breast: Denies rash Neurologic: Denies dizziness PMFSH Past Medical History Medical History (Updated 12/23/21 @ 11:28 by Germaine Jones APRN) Anemia Anxiety Asthma CAD (coronary artery disease) Concussion Depression Diverticulitis Fracture nose, ribs, right knee, thumb, hand, neck GERD (gastroesophageal reflux disease) Heart attack HTN (hypertension) Hyperlipidemia Kidney stone Pleurisy Sinus problem Sleep apnea 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
== END 2021-12-23 11:46 | disposition home or self-care (01) ==
PROVIDERS: Emergency Provider Nurse Practitioner Family
DX: K57.92 Diverticulitis of intestine, part unspecified, without perforation or abscess without bleeding (principal); Z87.891 Personal history of nicotine dependence; J45.909 Unspecified asthma, uncomplicated; I25.10 Atherosclerotic heart disease of native coronary artery without angina pectoris; K21.9 Gastro-esophageal reflux disease without esophagitis; I25.2 Old myocardial infarction; I10 Essential (primary) hypertension; E78.5 Hyperlipidemia, unspecified; G47.30 Sleep apnea, unspecified; Z98.84 Bariatric surgery status; F41.9 Anxiety disorder, unspecified
CPT/HCPCS: 99213; G0463

== ENCOUNTER 2022-01-28 17:52 | Emergency (ER) | payer OTHER, SELFPAY ==
[2022-01-28 17:58] VITALS: BP 167/104; PULSE 63; RESP 18; TEMP 36.2; O2SAT 100
--- NOTE | 2022-01-28 18:02 | ED.ABDPAIN ---
HPI - Abdominal Pain General Chief Complaint: Abdominal Pain Stated Complaint: chest pain Time Seen by Provider: 01/28/22 17:54 Source: patient and RN notes reviewed History of Present Illness HPI narrative: Patient is a 51-year-old male who presents the urgent care with complaints of left chest muscular tenderness and left lower abdominal pain. Patient states that he has diverticulitis flares several times per year with his last one being in December. Patient was seen in our facility at that time and placed on ciprofloxacin and Flagyl. Patient states that it is his normal flareup with severe left lower abdominal cramping. Patient denies of diarrhea, blood in the stool, nausea, vomiting or fever. Patient states that he prepped for his last colonoscopy and they canceled the appointment once he got there . Patient states he has a follow-up with a new comb fixer in the next month. Patient states that he has been lifting a lot recently and believes that the chest pain is muscular. States that he seen the chiropractor just prior to his arrival at the urgent care and was suggested to follow-up to obtain an EKG. Patient denies of any cardiac history however does take medications for blood pressure. Patient states that he has been under a lot of stress and anxiety recently as well. No other acute complaints. No acute distress noted. Patient aware of the plan of care. Some parts of this dictation were generated by voice recognition software and may contain typographical and/or grammatical inaccuracies. Related Data Home Medications Medication Instructions Recorded Confirmed alprazolam 2 mg tablet 2 mg PO TID 01/14/21 12/23/21 atenolol 100 mg PO DAILY 09/04/21 12/23/21 omeprazole 40 mg PO DAILY 09/04/21 12/23/21 Allergies Allergy/AdvReac Type Severity Reaction Status Date / Time Iodinated Contrast Media Allergy Severe Anaphylaxis Verified 12/23/21 10:54 metformin Allergy Severe Stopped Verified 12/23/21 10:54 Breathing Sulfa (Sulfonamide Allergy Severe Anaphylaxis Verified 12/23/21 10:54 Antibiotics) sulfamethoxazole Allergy Severe Anaphylaxis Verified 12/23/21 10:54 famotidine Allergy Intermediate Hives Verified 12/23/21 10:54 losartan Allergy Intermediate SWLLEING Verified 12/23/21 10:54 LIP AND HIVES nebivolol Allergy Intermediate LIP Verified 12/23/21 10:54 SWELLING Quinolones Allergy Intermediate Nervousness Verified 12/23/21 10:54 valsartan Allergy Intermediate HIVES/SOB Verified 12/23/21 10:54 amlodipine Allergy Mild HIVES Verified 12/23/21 10:54 azithromycin Allergy Mild Nervousness Verified 12/23/21 10:54 spironolactone Allergy Mild RASH AND Verified 12/23/21 10:54 ITCHING trimethoprim Allergy Mild RASH Verified 12/23/21 10:54 cephalexin AdvReac Mild Nervousness Verified 12/23/21 10:54 flavoxate AdvReac Mild Nervousness Verified 12/23/21 10:54 levofloxacin AdvReac Mild Nervousness Verified 12/23/21 10:54 lidocaine AdvReac Mild Nervousness Verified 12/23/21 10:54 lisinopril AdvReac Mild Nervousness Verified 12/23/21 10:54 nitrofurantoin AdvReac Mild Nervousness Verified 12/23/21 10:54 oxycodone AdvReac Mild Nervousness Verified 12/23/21 10:54 paroxetine AdvReac Mild Nervousness Verified 12/23/21 10:54 Review of Systems Review of Systems: CONSTITUTIONAL: Denies fever, chills, or sweats. EYES: Denies visual changes, redness, or discharge. ENT: Denies rhinorrhea, congestion, sore throat, or otalgia. CARDIOVASCULAR: Reports of chest pain without palpitations or edema RESPIRATORY: Denies cough or dyspnea. GASTROINTESTINAL: Reports of left lower abdominal pain/cramping without nausea, vomiting or diarrhea GENITOURINARY: Denies dysuria or hematuria. SKIN: Denies rash or itching. MUSCULOSKELETAL: Denies back pain, joint pain, or myalgia. NEUROLOGIC: Denies headache, numbness, or weakness. All other systems reviewed are negative, except as documented in HPI. PMF Past Medical History Medical H
--- NOTE | 2022-01-28 18:07 | ECG_ITS ---
Measurements Intervals Lorraine Rate: 58 P: -11 SD: 169 QRS: 16 QRSD: 105 T: -9 QT: 406 QTc: 401 Interpretive Statements SINUS BRADYCARDIA NONSPECIFIC T-WAVE ABNORMALITY- INFERIOR LEADS BASELINE ARTIFACT- II, III, AVF BORDERLINE ECG Electronically Signed On 01-29-2022 8:06:02 CDT by Yonathan Ross D.O.
== END 2022-01-28 18:19 | disposition left against medical advice (07) ==
PROVIDERS: Emergency Provider Nurse Practitioner Family
DX: K57.92 Diverticulitis of intestine, part unspecified, without perforation or abscess without bleeding (principal); R07.9 Chest pain, unspecified; Z87.891 Personal history of nicotine dependence; F41.9 Anxiety disorder, unspecified; J45.909 Unspecified asthma, uncomplicated; I25.10 Atherosclerotic heart disease of native coronary artery without angina pectoris; K21.9 Gastro-esophageal reflux disease without esophagitis; I25.2 Old myocardial infarction; I10 Essential (primary) hypertension; R78.5 Finding of other psychotropic drug in blood; G47.30 Sleep apnea, unspecified; Z98.84 Bariatric surgery status
CPT/HCPCS: 93005; 99213; G0463

== ENCOUNTER 2022-05-25 18:06 | Emergency (ER) | payer OTHER, SELFPAY ==
--- NOTE | 2022-05-25 18:32 | ED.URI ---
HPI - URI/Sore Throat General Chief Complaint: Upper Respiratory Infection Stated Complaint: Sinus,SOB Source: patient, RN notes reviewed and old records reviewed Mode of arrival: ambulatory Limitations: no limitations History of Present Illness HPI Narrative: 52-year-old male presents to the [facility] with complaints of sinuses. Has a history of chronic sinus issues. Has seen Dr. Collins in the past and was prescribed Flonase. Related Data Home Medications Medication Instructions Recorded Confirmed alprazolam 2 mg tablet (Xanax) 2 mg PO TID 01/14/21 12/23/21 atenolol 100 mg tablet 100 mg PO DAILY 09/04/21 12/23/21 omeprazole 40 mg capsule,delayed 40 mg PO DAILY 09/04/21 12/23/21 release Allergies Allergy/AdvReac Type Severity Reaction Status Date / Time Iodinated Contrast Media Allergy Severe Anaphylaxis Verified 12/23/21 10:54 metformin Allergy Severe Stopped Verified 12/23/21 10:54 Breathing Sulfa (Sulfonamide Allergy Severe Anaphylaxis Verified 12/23/21 10:54 Antibiotics) sulfamethoxazole Allergy Severe Anaphylaxis Verified 12/23/21 10:54 famotidine Allergy Intermediate Hives Verified 12/23/21 10:54 losartan Allergy Intermediate SWLLEING Verified 12/23/21 10:54 LIP AND HIVES nebivolol Allergy Intermediate LIP Verified 12/23/21 10:54 SWELLING Quinolones Allergy Intermediate Nervousness Verified 12/23/21 10:54 valsartan Allergy Intermediate HIVES/SOB Verified 12/23/21 10:54 amlodipine Allergy Mild HIVES Verified 12/23/21 10:54 azithromycin Allergy Mild Nervousness Verified 12/23/21 10:54 spironolactone Allergy Mild RASH AND Verified 12/23/21 10:54 ITCHING trimethoprim Allergy Mild RASH Verified 12/23/21 10:54 cephalexin AdvReac Mild Nervousness Verified 12/23/21 10:54 flavoxate AdvReac Mild Nervousness Verified 12/23/21 10:54 levofloxacin AdvReac Mild Nervousness Verified 12/23/21 10:54 lidocaine AdvReac Mild Nervousness Verified 12/23/21 10:54 lisinopril AdvReac Mild Nervousness Verified 12/23/21 10:54 nitrofurantoin AdvReac Mild Nervousness Verified 12/23/21 10:54 oxycodone AdvReac Mild Nervousness Verified 12/23/21 10:54 paroxetine AdvReac Mild Nervousness Verified 12/23/21 10:54 Review of Systems Review of Systems: All systems reviewed & are unremarkable except as noted in HPI and below Constitutional: Constitutional: Reports no additional constitutional complaints, Denies chills and Denies fever(s) Eyes: Eyes: Reports no additional eye complaints ENT: Reports system reviewed and no additional complaints, except as documented Cardiovascular: Cardiovascular: Reports no additional cardiovascular complaints Respiratory: Respiratory: Reports no additional respiratory complaints Gastrointestinal: Gastrointestinal: Reports no additional gastrointestinal complaints Musculoskeletal: Musculoskeletal: Reports no additional musculoskeletal complaints Integumentary/Breasts: Skin/Breast: Reports system reviewed and no additional complaints, except as docu Neurologic: Reports system reviewed and no additional complaints, except as documented Psychiatric: Psychiatric: Reports no additional psychiatric complaints Allergic/Immunologic: Allergic/Immunologic: Reports no additional allergic/immunologic complaints PMFSH Past Medical History Medical History (Updated 01/29/22 @ 00:00 by Background Daemon) Anemia Anxiety Asthma CAD (coronary artery disease) Concussion Depression Diverticulitis Fracture nose, ribs, right knee, thumb, hand, neck GERD (gastroesophageal reflux disease) Heart attack HTN (hypertension) Hyperlipidemia Kidney stone Pleurisy Sinus problem Sleep apnea 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
--- NOTE | 2022-05-25 19:17 | ED.URI ---
HPI - URI/Sore Throat General Chief Complaint: Upper Respiratory Infection Stated Complaint: Sinus,SOB Related Data Home Medications Medication Instructions Recorded Confirmed alprazolam 2 mg tablet (Xanax) 2 mg PO TID 01/14/21 05/25/22 atenolol 100 mg tablet 100 mg PO DAILY 09/04/21 05/25/22 omeprazole 40 mg capsule,delayed 4 mg PO DAILY 05/25/22 05/25/22 release Allergies Allergy/AdvReac Type Severity Reaction Status Date / Time Iodinated Contrast Media Allergy Severe Anaphylaxis Verified 05/25/22 18:38 metformin Allergy Severe Stopped Verified 05/25/22 18:38 Breathing Sulfa (Sulfonamide Allergy Severe Anaphylaxis Verified 05/25/22 18:38 Antibiotics) sulfamethoxazole Allergy Severe Anaphylaxis Verified 05/25/22 18:38 famotidine Allergy Intermediate Hives Verified 05/25/22 18:38 losartan Allergy Intermediate SWLLEING Verified 05/25/22 18:38 LIP AND HIVES nebivolol Allergy Intermediate LIP Verified 05/25/22 18:38 SWELLING Quinolones Allergy Intermediate Nervousness Verified 05/25/22 18:38 valsartan Allergy Intermediate HIVES/SOB Verified 05/25/22 18:38 amlodipine Allergy Mild HIVES Verified 05/25/22 18:38 azithromycin Allergy Mild Nervousness Verified 05/25/22 18:38 spironolactone Allergy Mild RASH AND Verified 05/25/22 18:38 ITCHING trimethoprim Allergy Mild RASH Verified 05/25/22 18:38 cephalexin AdvReac Mild Nervousness Verified 05/25/22 18:38 flavoxate AdvReac Mild Nervousness Verified 05/25/22 18:38 levofloxacin AdvReac Mild Nervousness Verified 05/25/22 18:38 lidocaine AdvReac Mild Nervousness Verified 05/25/22 18:38 lisinopril AdvReac Mild Nervousness Verified 05/25/22 18:38 nitrofurantoin AdvReac Mild Nervousness Verified 05/25/22 18:38 oxycodone AdvReac Mild Nervousness Verified 05/25/22 18:38 paroxetine AdvReac Mild Nervousness Verified 05/25/22 18:38 [facility] Past Medical History Medical History (Updated 05/26/22 @ 00:01 by Background Daemon) Anemia Anxiety Asthma CAD (coronary artery disease) Concussion Depression Diverticulitis Fracture nose, ribs, right knee, thumb, hand, neck GERD (gastroesophageal reflux disease) Heart attack HTN (hypertension) Hyperlipidemia Kidney stone Pleurisy Sinus problem Sleep apnea 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 Hypertension Diabetes mellitus Mother Depression Patient's mother is in good health Family history of mental disorder Father Hypertension Patient's father is in good health Family history of alcoholism Cerebrovascular accident Sibling Patient's sister is in good health Patient's brother is in good health Father Cerebrovascular accident Alcoholism Hypertension Heart disease Mother Family history of malignant neoplasm Depression Hypertension Other Family history of cardiovascular disease Social History Social History Smoking status: Former smoker Smoking end date: 09/13/11 Alcohol intake: former Substance use: never Substance use type: does not use Gender identity (if verbalized by the patient): Male Course Course Level of Care: Express Care Visit Discharge Plan Discharge Patient Disposition: Left Without Being Seen Prescriptions: No Action atenolol 100 mg tablet 100 mg PO DAILY omeprazole 40 mg capsule,delayed release(DR/EC) 4 mg PO DAILY fluticasone propionate [Flonase Allergy Relief] 50 mcg/actuation spray,suspension 2 spray intranasal DAILY Qty: 16 0RF Rx Instructions: administer into each nostril alprazolam [Xanax] 2 mg tablet 2 mg PO TID fluticasone propionate 50 mcg/actua
== END 2022-05-25 18:45 | disposition left against medical advice (07) ==
PROVIDERS: Emergency Provider Internal Medicine Hematology & Oncology
DX: Z53.21 Procedure and treatment not carried out due to patient leaving prior to being seen by health care provider (principal)
CPT/HCPCS: 99199

== ENCOUNTER 2022-05-25 19:15 | Emergency (ER) | payer OTHER, SELFPAY ==
--- NOTE | ~2022-05-25 | XR_ITS ---
EXAMINATION: XR chest 2V Exam Date/Time: 05/25/2022 19:30 CDT HISTORY: prod cough x 2 days Comparison: 10/10/2021. RESULT: Lines, tubes, and devices: Cholecystectomy clips. Lungs and pleura: Clear. Cardiomediastinal silhouette: Stable. Other: No acute osseous or upper abdominal finding. IMPRESSION: No acute cardiopulmonary process. Reviewed, dictated and finalized at location K.
[2022-05-25 19:23] VITALS: BP 176/90; PULSE 67; RESP 16; TEMP 35.9; O2SAT 100
--- NOTE | 2022-05-25 19:32 | ED.URI ---
HPI - URI/Sore Throat General Chief Complaint: Upper Respiratory Infection Stated Complaint: Sinus,Rib Pain Both Sides Time Seen by Provider: 05/25/22 19:32 Source: patient and RN notes reviewed Mode of arrival: ambulatory Limitations: no limitations History of Present Illness HPI Narrative: 52-year-old man presents to the [facility] with complaints of sinus pressure, rhinorrhea, bilateral lower rib pain since Wednesday, 2 days. Reports coughing. Reports that he has a appointment with ENT, Dr. Collins on . Denies any chest pain. Reports that when he coughs he has pain to the bilateral lower ribs. Or if he takes a deep breath reports that discomfort as well. When sitting still and talking he has no pain. Patient reports grayish-black drainage from his sinuses. Reports that he takes Robitussin for his his cough, declined Tessalon Perles due to nervousness. Patient denies fevers. Reports that he is compliant with his atenolol, Flonase and Benadryl. States he cannot take daily allergy medication due to upset stomach. Patient offered COVID test, chest x-ray. Patient a month ago(04/17/22) was prescribed amoxicillin for 7 days, patient stated that he has not taken antibiotics in several months. Denies being seen elsewhere other than the [facility]'s. MD elicited complaint: cough, rhinorrhea and nasal congestion Related Data Home Medications Medication Instructions Recorded Confirmed alprazolam 2 mg tablet (Xanax) 2 mg PO TID 01/14/21 05/25/22 atenolol 100 mg tablet 100 mg PO DAILY 09/04/21 05/25/22 omeprazole 40 mg capsule,delayed 4 mg PO DAILY 05/25/22 05/25/22 release Allergies Allergy/AdvReac Type Severity Reaction Status Date / Time Iodinated Contrast Media Allergy Severe Anaphylaxis Verified 05/25/22 18:38 metformin Allergy Severe Stopped Verified 05/25/22 18:38 Breathing Sulfa (Sulfonamide Allergy Severe Anaphylaxis Verified 05/25/22 18:38 Antibiotics) sulfamethoxazole Allergy Severe Anaphylaxis Verified 05/25/22 18:38 famotidine Allergy Intermediate Hives Verified 05/25/22 18:38 losartan Allergy Intermediate SWLLEING Verified 05/25/22 18:38 LIP AND HIVES nebivolol Allergy Intermediate LIP Verified 05/25/22 18:38 SWELLING Quinolones Allergy Intermediate Nervousness Verified 05/25/22 18:38 valsartan Allergy Intermediate HIVES/SOB Verified 05/25/22 18:38 amlodipine Allergy Mild HIVES Verified 05/25/22 18:38 azithromycin Allergy Mild Nervousness Verified 05/25/22 18:38 spironolactone Allergy Mild RASH AND Verified 05/25/22 18:38 ITCHING trimethoprim Allergy Mild RASH Verified 05/25/22 18:38 cephalexin AdvReac Mild Nervousness Verified 05/25/22 18:38 flavoxate AdvReac Mild Nervousness Verified 05/25/22 18:38 levofloxacin AdvReac Mild Nervousness Verified 05/25/22 18:38 lidocaine AdvReac Mild Nervousness Verified 05/25/22 18:38 lisinopril AdvReac Mild Nervousness Verified 05/25/22 18:38 nitrofurantoin AdvReac Mild Nervousness Verified 05/25/22 18:38 oxycodone AdvReac Mild Nervousness Verified 05/25/22 18:38 paroxetine AdvReac Mild Nervousness Verified 05/25/22 18:38 Review of Systems Review of Systems: All systems reviewed & are unremarkable except as noted in HPI and below Constitutional: Constitutional: Reports no additional constitutional complaints, Denies chills and Denies fever(s) Eyes: Eyes: Reports no additional eye complaints ENT: Reports as per HPI, Denies ear discharge, Denies otalgia, Reports nasal congestion and Reports nasal discharge Cardiovascular: Cardiovascular: Reports no additional cardiovascular complaints Respiratory: Respiratory: Reports as per HPI and Reports cough (Bilateral lower rib pain) Gastrointestinal: Gastrointestinal: Reports no additional gastrointestinal complaints Musculoskeletal: Musculoskeletal: Reports no additional musculoskeletal complaints Integumentary/Breasts: Skin/Breast: Reports system reviewed and no additional complaints, except as d
[2022-05-25 20:00] VITALS: BP 156/91
[2022-05-26 19:34] LABS: SARS-CoV-2 RNA PCR Negative
== END 2022-05-25 20:00 | disposition home or self-care (01) ==
PROVIDERS: Emergency Provider Nurse Practitioner
DX: J06.9 Acute upper respiratory infection, unspecified (principal); R07.81 Pleurodynia; Z20.822 Contact with and (suspected) exposure to COVID-19; Z87.891 Personal history of nicotine dependence; J45.909 Unspecified asthma, uncomplicated; K21.9 Gastro-esophageal reflux disease without esophagitis; I10 Essential (primary) hypertension; E78.5 Hyperlipidemia, unspecified; G47.30 Sleep apnea, unspecified; I25.2 Old myocardial infarction; I25.10 Atherosclerotic heart disease of native coronary artery without angina pectoris; Z98.84 Bariatric surgery status; F41.9 Anxiety disorder, unspecified
CPT/HCPCS: 71046; 87426; 99213; C9803; G0463; U0003; U0005

== ENCOUNTER 2022-06-13 19:14 | Emergency (ER) | payer OTHER, SELFPAY ==
[2022-06-13 19:24] VITALS: BP 147/95; PULSE 72; RESP 16; TEMP 37.1; O2SAT 99
[2022-06-13 19:35] VITALS: BP 147/95; PULSE 72; RESP 16; TEMP 37.1; O2SAT 99
--- NOTE | 2022-06-13 19:40 | ED.GENADULT ---
HPI - General Adult General Chief complaint: Skin/Abscess/Foreign Body Stated complaint: itching Source: patient Mode of arrival: ambulatory Limitations: no limitations History of Present Illness HPI narrative: Patient presents for evaluation of generalized pruritus. No new lotions, soaps, detergents, topical products. Symptoms been present for 3 days. He has been taking Benadryl which seems to help. He is wondering if he can get a prescription for steroids. He has some chronic hyperpigmented lesions to his extremities x4, which are unchanged in appearance. No difficulty breathing or swallowing. He is also concerned about an ulcerative lesion to the left lower extremity. He indicates he thought he saw an ingrown hair and bugs crawling out of the area. He plucked a hair out with tweezers and covered it with a Band-Aid. He is now applying Neosporin to the area. He states that it is helping with the appearance of the ulcer. No fever, chills, nausea, vomiting. No purulence. No additional complaints or concerns. Related Data Home Medications Medication Instructions Recorded Confirmed alprazolam 2 mg tablet (Xanax) 2 mg PO TID 01/14/21 06/13/22 atenolol 100 mg tablet 100 mg PO DAILY 09/04/21 06/13/22 omeprazole 40 mg capsule,delayed 4 mg PO DAILY 05/25/22 06/13/22 release Allergies Allergy/AdvReac Type Severity Reaction Status Date / Time Iodinated Contrast Media Allergy Severe Anaphylaxis Verified 06/13/22 19:22 metformin Allergy Severe Stopped Verified 06/13/22 19:22 Breathing Sulfa (Sulfonamide Allergy Severe Anaphylaxis Verified 06/13/22 19:22 Antibiotics) sulfamethoxazole Allergy Severe Anaphylaxis Verified 06/13/22 19:22 famotidine Allergy Intermediate Hives Verified 06/13/22 19:22 losartan Allergy Intermediate SWLLEING Verified 06/13/22 19:22 LIP AND HIVES nebivolol Allergy Intermediate LIP Verified 06/13/22 19:22 SWELLING Quinolones Allergy Intermediate Nervousness Verified 06/13/22 19:22 valsartan Allergy Intermediate HIVES/SOB Verified 06/13/22 19:22 amlodipine Allergy Mild HIVES Verified 06/13/22 19:22 azithromycin Allergy Mild Nervousness Verified 06/13/22 19:22 spironolactone Allergy Mild RASH AND Verified 06/13/22 19:22 ITCHING trimethoprim Allergy Mild RASH Verified 06/13/22 19:22 cephalexin AdvReac Mild Nervousness Verified 06/13/22 19:22 flavoxate AdvReac Mild Nervousness Verified 06/13/22 19:22 levofloxacin AdvReac Mild Nervousness Verified 06/13/22 19:22 lidocaine AdvReac Mild Nervousness Verified 06/13/22 19:22 lisinopril AdvReac Mild Nervousness Verified 06/13/22 19:22 nitrofurantoin AdvReac Mild Nervousness Verified 06/13/22 19:22 oxycodone AdvReac Mild Nervousness Verified 06/13/22 19:22 paroxetine AdvReac Mild Nervousness Verified 06/13/22 19:22 Review of Systems Review of Systems: CONSTITUTIONAL: Denies fever, chills, or sweats. EYES: Denies visual changes, redness, or discharge. ENT: Denies rhinorrhea, congestion, sore throat, or otalgia. CARDIOVASCULAR: Denies chest pain, palpitations, or edema. RESPIRATORY: Denies cough or dyspnea. GASTROINTESTINAL: Denies abdominal pain, nausea, vomiting, or diarrhea. GENITOURINARY: Denies dysuria or hematuria. SKIN: Reports generalized pruritus. Reports ulcerative lesion in the left lower extremity. MUSCULOSKELETAL: Denies back pain, joint pain, or myalgia. NEUROLOGIC: Denies headache, numbness, dizziness, or weakness. PSYCHIATRIC: Denies anxiety or depression. 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
== END 2022-06-13 19:36 | disposition home or self-care (01) ==
PROVIDERS: Emergency Provider Nurse Practitioner
DX: L29.9 Pruritus, unspecified (principal); Z87.891 Personal history of nicotine dependence; J45.909 Unspecified asthma, uncomplicated; I25.10 Atherosclerotic heart disease of native coronary artery without angina pectoris; K21.9 Gastro-esophageal reflux disease without esophagitis; I25.2 Old myocardial infarction; I10 Essential (primary) hypertension; E78.5 Hyperlipidemia, unspecified; G47.30 Sleep apnea, unspecified; Z98.84 Bariatric surgery status; F41.9 Anxiety disorder, unspecified
CPT/HCPCS: 99213; G0463

== ENCOUNTER 2022-08-26 11:23 | Emergency (ER) | payer OTHER, SELFPAY ==
--- NOTE | 2022-08-26 11:30 | ED.MALEGU ---
HPI - Male Genitourinary General Chief complaint: Urogenital-Male Stated complaint: uti/redness roshan eyes Related Data Home Medications Medication Instructions Recorded Confirmed alprazolam 2 mg tablet (Xanax) 2 mg PO TID 01/14/21 06/24/22 atenolol 100 mg tablet 100 mg PO DAILY 09/04/21 06/24/22 diphenhydramine HCl 50 mg capsule 50 mg PO QHS 06/24/22 06/24/22 tetrahydrozoline 0.05 % eye drops 2 drp EACH EYE TID 06/24/22 06/24/22 (Visine) Allergies Allergy/AdvReac Type Severity Reaction Status Date / Time Iodinated Contrast Media Allergy Severe Anaphylaxis Verified 08/26/22 11:30 metformin Allergy Severe Stopped Verified 08/26/22 11:30 Breathing Sulfa (Sulfonamide Allergy Severe Anaphylaxis Verified 08/26/22 11:30 Antibiotics) sulfamethoxazole Allergy Severe Anaphylaxis Verified 08/26/22 11:30 famotidine Allergy Intermediate Hives Verified 08/26/22 11:30 losartan Allergy Intermediate SWLLEING Verified 08/26/22 11:30 LIP AND HIVES nebivolol Allergy Intermediate LIP Verified 08/26/22 11:30 SWELLING Quinolones Allergy Intermediate Nervousness Verified 08/26/22 11:30 valsartan Allergy Intermediate HIVES/SOB Verified 08/26/22 11:30 amlodipine Allergy Mild HIVES Verified 08/26/22 11:30 azithromycin Allergy Mild Nervousness Verified 08/26/22 11:30 spironolactone Allergy Mild RASH AND Verified 08/26/22 11:30 ITCHING trimethoprim Allergy Mild RASH Verified 08/26/22 11:30 cephalexin AdvReac Mild Nervousness Verified 08/26/22 11:30 flavoxate AdvReac Mild Nervousness Verified 08/26/22 11:30 levofloxacin AdvReac Mild Nervousness Verified 08/26/22 11:30 lidocaine AdvReac Mild Nervousness Verified 08/26/22 11:30 lisinopril AdvReac Mild Nervousness Verified 08/26/22 11:30 nitrofurantoin AdvReac Mild Nervousness Verified 08/26/22 11:30 oxycodone AdvReac Mild Nervousness Verified 08/26/22 11:30 paroxetine AdvReac Mild Nervousness Verified 08/26/22 11:30 FORMERLY [facility] Past Medical History Medical History (Updated 07/17/22 @ 15:59 by Bandar Collins MD) Anemia Anxiety Asthma CAD (coronary artery disease) Concussion Depression Diverticulitis Fracture nose, ribs, right knee, thumb, hand, neck GERD (gastroesophageal reflux disease) Heart attack HTN (hypertension) Hyperlipidemia Kidney stone Pleurisy Sinus problem Sleep apnea 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 Hypertension Diabetes mellitus Mother Depression Patient's mother is in good health Family history of mental disorder Father Hypertension Patient's father is in good health Family history of alcoholism Cerebrovascular accident Sibling Patient's sister is in good health Patient's brother is in good health Father Cerebrovascular accident Alcoholism Hypertension Heart disease Mother Family history of malignant neoplasm Depression Hypertension Other Family history of cardiovascular disease Social History Social History (Updated 06/24/22 @ 16:16 by Cata Tinajero [facility]) Smoking status: Former smoker Smoking end date: 09/13/95 Alcohol intake: former Substance use: never Substance use type: does not use Gender identity (if verbalized by the patient): Male Discharge Plan Discharge Prescriptions: No Action atenolol 100 mg tablet 100 mg PO DAILY alprazolam [Xanax] 2 mg tablet 2 mg PO TID diphenhydramine HCl 50 mg capsule 50 mg PO QHS tetrahydrozoline [Visine] 0.05 % drops 2 drp EACH EYE TID prednisone 5 mg tablet See Rx Instructions PO DAILY Qty: 11 0RF Rx Instructions: 10mg days 1-4, 5mg days 5-7, take in am fluticasone propionate 50 mcg/actuation spray,
== END 2022-08-26 11:30 | disposition left against medical advice (07) ==
PROVIDERS: Emergency Provider Internal Medicine Hematology & Oncology
DX: Z53.21 Procedure and treatment not carried out due to patient leaving prior to being seen by health care provider (principal)
CPT/HCPCS: 99199

== ENCOUNTER 2022-11-04 11:35 | Outpatient (CLI) | payer OTHER, SELFPAY ==
--- NOTE | ~2022-11-04 | XR_ITS ---
EXAMINATION: XR abdomen obstructive series DATE: 11/04/2022 12:02 INDICATION: Abdominal pain TECHNIQUE: Supine and upright views of the abdomen. FINDINGS: Comparison to 11/18/2009 The visualized lung parenchyma is normal.. There is a nonobstructive bowel gas pattern. Gas and stool are seen throughout the colon to the level of the rectum. There is no free air. There are cholecyst ectomy clips. Lung bases are unremarkable. IMPRESSION: 1. No acute abdominal abnormality. Reviewed, dictated and finalized at location B. [facility] [employer]
== END 2022-11-04 11:36 | disposition home or self-care (01) ==
PROVIDERS: PCP Internal Medicine; Visit Provider Internal Medicine
DX: R10.9 Unspecified abdominal pain (principal)
CPT/HCPCS: 74019

== ENCOUNTER 2022-12-12 09:45 | Emergency (ER) | payer OTHER, SELFPAY ==
[2022-12-12 09:56] VITALS: BP 178/77; PULSE 55; RESP 12; TEMP 36.2; O2SAT 100
--- NOTE | 2022-12-12 10:02 | ED.URI ---
HPI - URI/Sore Throat General Chief Complaint: Upper Respiratory Infection Stated Complaint: SOB/Cough Source: patient and RN notes reviewed History of Present Illness HPI Narrative: 52-year-old male presents to urgent care multiple, vague complaints. Pt initially reports some right eye itching and URI symptoms. Pt states he had been having sinus issues and facial pressure, so his ENT placed him on a medrol dose pack and amoxicillin. Pt states he then started having diverticulitis symptoms and requested his ENT change his Abx so he was taken off the Amox and placed on Cipro and Flagyl. Pt states he then began having some midsternal chest pain with deep inhalation and thought it could be the steroids. Pt reports some SOB. States he is taking a nasal spray and inhaler at home. Denies any vomiting or diarrhea. Pt states he took a Covid test at home and was negative. Related Data Home Medications Medication Instructions Recorded Confirmed diphenhydramine HCl 50 mg capsule 50 mg PO QHS 06/24/22 11/02/22 tetrahydrozoline 0.05 % eye drops 2 drp EACH EYE TID 06/24/22 11/02/22 (Visine) cyclobenzaprine 10 mg tablet 10 mg PO .prn 10/27/22 11/02/22 Allergies Allergy/AdvReac Type Severity Reaction Status Date / Time Iodinated Contrast Media Allergy Severe Anaphylaxis Verified 12/12/22 10:02 metformin Allergy Severe Stopped Verified 12/12/22 10:02 Breathing Sulfa (Sulfonamide Allergy Severe Anaphylaxis Verified 12/12/22 10:02 Antibiotics) sulfamethoxazole Allergy Severe Anaphylaxis Verified 12/12/22 10:02 famotidine Allergy Intermediate Hives Verified 12/12/22 10:02 losartan Allergy Intermediate SWLLEING Verified 12/12/22 10:02 LIP AND HIVES nebivolol Allergy Intermediate LIP Verified 12/12/22 10:02 SWELLING Quinolones Allergy Intermediate Nervousness Verified 12/12/22 10:02 valsartan Allergy Intermediate HIVES/SOB Verified 12/12/22 10:02 amlodipine Allergy Mild HIVES Verified 12/12/22 10:02 azithromycin Allergy Mild Nervousness Verified 11/02/22 14:10 spironolactone Allergy Mild RASH AND Verified 11/02/22 14:10 ITCHING trimethoprim Allergy Mild RASH Verified 11/02/22 14:10 cephalexin AdvReac Mild Nervousness Verified 11/02/22 14:10 flavoxate AdvReac Mild Nervousness Verified 11/02/22 14:10 levofloxacin AdvReac Mild Nervousness Verified 11/02/22 14:10 lidocaine AdvReac Mild Nervousness Verified 11/02/22 14:10 lisinopril AdvReac Mild Nervousness Verified 11/02/22 14:10 nitrofurantoin AdvReac Mild Nervousness Verified 11/02/22 14:10 oxycodone AdvReac Mild Nervousness Verified 11/02/22 14:10 paroxetine AdvReac Mild Nervousness Verified 11/02/22 14:10 Review of Systems Review of Systems: Pertinent positives and pertinent negatives per HPI. 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
[2022-12-12 10:28] VITALS: BP 144/94
== END 2022-12-12 10:28 | disposition home or self-care (01) ==
PROVIDERS: Emergency Provider Nurse Practitioner Family; PCP Internal Medicine
DX: B34.9 Viral infection, unspecified (principal); Z87.891 Personal history of nicotine dependence; I25.10 Atherosclerotic heart disease of native coronary artery without angina pectoris; K21.9 Gastro-esophageal reflux disease without esophagitis; I10 Essential (primary) hypertension
CPT/HCPCS: 99211; G0463

== ENCOUNTER 2022-12-22 12:32 | Outpatient (CLI) | payer OTHER, SELFPAY ==
--- NOTE | ~2022-12-22 | CT_ITS ---
EXAMINATION: CT sinus wo con DATE: 12/22/2022 12:54 INDICATION: Sinusitis TECHNIQUE: Computed tomography (CT) of the paranasal sinuses was performed without intravenous contra st. The dose-length product was 352.32 mGy-cm. Automated exposure control and iterative reconstructio n technique were employed. COMPARISON: CT dated 02/17/2020 FINDINGS: There is a small mucous retention cyst right maxillary sinus. There is mild mucosal thicken ing of the ethmoid sinuses. No air-fluid levels. No mucoperiosteal reaction. Mastoids are pneumatized . Ostiomeatal units are patent. No nasal septal deviation. Sinus IMPRESSION: 1. Mild sinus disease. Reviewed, dictated and finalized at location L. IMPRESSION: 1. Mild sinus disease.
== END 2022-12-22 12:33 | disposition home or self-care (01) ==
PROVIDERS: Visit Provider Otolaryngology
DX: J34.2 Deviated nasal septum (principal); J34.89 Other specified disorders of nose and nasal sinuses; R09.82 Postnasal drip; R51.9 Headache, unspecified; R44.8 Other symptoms and signs involving general sensations and perceptions; J32.9 Chronic sinusitis, unspecified
CPT/HCPCS: 70486

== ENCOUNTER 2022-12-27 12:34 | Emergency (ER) | payer OTHER, SELFPAY ==
[2022-12-27 12:54] VITALS: BP 179/97; PULSE 62; RESP 16; TEMP 36.5; O2SAT 99
--- NOTE | 2022-12-27 13:58 | ED.ANXIETY ---
HPI - Anxiety General Chief Complaint: Anxiety <Rayo Funez PA-C - Last Filed: 12/27/22 14:59> Stated Complaint: anxiety attacks <Rayo Funez PA-C - Last Filed: 12/27/22 14:59> Time Seen by Provider: 12/27/22 13:20 <Rayo Funez PA-C - Last Filed: 12/27/22 14:59> Source: patient <OMI Serrato Last Filed: 12/27/22 14:59> Mode of arrival: ambulatory <OMI Serrato Last Filed: 12/27/22 14:59> Limitations: no limitations <OMI Serrato Last Filed: 12/27/22 14:59> History of Present Illness HPI narrative: This is a 52-year-old male who presents to the ED with chief complaint of anxiety. He has been dealing with this since 1996. He reports that he fired his psychiatrist and PCP earlier this year and took his last dose of Xanax 2 mg this morning. He reports feeling shaky and anxious in general. He is seeking anxiolysis and a refill until he can get into his new psychiatrist <OMI Serrato Last Filed: 12/27/22 14:59> Related Data Home Medications: Home Medications Medication Instructions Recorded Confirmed diphenhydramine HCl 50 mg capsule 50 mg PO QHS 06/24/22 12/17/22 tetrahydrozoline 0.05 % eye drops 2 drp EACH EYE TID 06/24/22 12/17/22 (Visine) cyclobenzaprine 10 mg tablet 10 mg PO .prn 10/27/22 12/17/22 <OMI Serrato Last Filed: 12/27/22 14:59> Allergies/Adverse Reactions: Allergies Allergy/AdvReac Type Severity Reaction Status Date / Time Iodinated Contrast Media Allergy Severe Anaphylaxis Verified 12/27/22 12:35 metformin Allergy Severe Stopped Verified 12/27/22 12:35 Breathing Sulfa (Sulfonamide Allergy Severe Anaphylaxis Verified 12/27/22 12:35 Antibiotics) sulfamethoxazole Allergy Severe Anaphylaxis Verified 12/27/22 12:35 famotidine Allergy Intermediate Hives Verified 12/27/22 12:35 losartan Allergy Intermediate SWLLEING Verified 12/27/22 12:35 LIP AND HIVES nebivolol Allergy Intermediate LIP Verified 12/27/22 12:35 SWELLING Quinolones Allergy Intermediate Nervousness Verified 12/27/22 12:35 valsartan Allergy Intermediate HIVES/SOB Verified 12/27/22 12:35 amlodipine Allergy Mild HIVES Verified 12/27/22 12:35 azithromycin Allergy Mild Nervousness Verified 12/27/22 12:35 spironolactone Allergy Mild RASH AND Verified 12/27/22 12:35 ITCHING trimethoprim Allergy Mild RASH Verified 12/27/22 12:35 cephalexin AdvReac Mild Nervousness Verified 12/27/22 12:35 flavoxate AdvReac Mild Nervousness Verified 12/27/22 12:35 levofloxacin AdvReac Mild Nervousness Verified 12/27/22 12:35 lidocaine AdvReac Mild Nervousness Verified 12/27/22 12:35 lisinopril AdvReac Mild Nervousness Verified 12/27/22 12:35 nitrofurantoin AdvReac Mild Nervousness Verified 12/27/22 12:35 oxycodone AdvReac Mild Nervousness Verified 12/27/22 12:35 paroxetine AdvReac Mild Nervousness Verified 12/27/22 12:35 <Rayo Funez PA-C - Last Filed: 12/27/22 14:59> Review of Systems Review of Systems: CONSTITUTIONAL: Denies fever, chills, or sweats. EYES: Denies visual changes, redness, or discharge. ENT: Denies rhinorrhea, congestion, sore throat, or otalgia. CARDIOVASCULAR: Denies chest pain, palpitations, or edema. RESPIRATORY: Denies cough or dyspnea. GASTROINTESTINAL: Denies abdominal pain, nausea, vomiting, or diarrhea. GENITOURINARY: Denies dysuria or hematuria. SKIN: Denies rash or itching. MUSCULOSKELETAL: Denies back pain, joint pain, or myalgia. NEUROLOGIC: Denies headache, numbness, dizziness, or weakness. PSYCHIATRIC: Endorses anxiety. Denies SI, HI. <Rayo Funez PA-C - Last Filed: 12/27/22 14:59> ON LICENSE OF [facility] Past Medical History Medical History: Medical History Anemia Anxiety Asthma CAD (coronary artery disease) Chronic post-traumatic stress disorder (PTSD) Concussion Depression Diverticulitis Fracture nose, ribs, right knee, thumb, hand, neck
[2022-12-27] MEDS: ALPRAZolam (*CRX) 0.5 MG TABLET 2 MG PO (14:10)
--- NOTE | 2022-12-27 14:40 | PC.NURSE ---
pt states he last had xanax 2 mg tablets filled on 11/02 #[address] farris. per pharmacy this in inaccurate info
== END 2022-12-27 14:45 | disposition home or self-care (01) ==
PROVIDERS: Emergency Provider Physician Assistant
DX: F41.9 Anxiety disorder, unspecified (principal); D64.9 Anemia, unspecified; J45.909 Unspecified asthma, uncomplicated; I25.10 Atherosclerotic heart disease of native coronary artery without angina pectoris; K21.9 Gastro-esophageal reflux disease without esophagitis; I10 Essential (primary) hypertension; Z87.442 Personal history of urinary calculi
CPT/HCPCS: 99283; A9270

== ENCOUNTER 2023-01-26 09:52 | Emergency (ER) | payer OTHER, SELFPAY ==
[2023-01-26 09:58] VITALS: BP 164/83; PULSE 58; RESP 16; TEMP 36.2; O2SAT 100
--- NOTE | 2023-01-26 09:58 | ED.ABDPAIN ---
HPI - Abdominal Pain General Chief Complaint: Abdominal Pain Stated Complaint: Abdominal Pain Time Seen by Provider: 01/26/23 10:00 Source: patient, RN notes reviewed and old records reviewed Mode of arrival: ambulatory Limitations: no limitations History of Present Illness HPI narrative: 52-year-old male presents to the [facility] with ?my diverticulitis is flaring. Patient has a history of high blood pressure, anxiety, PTSD and diverticulitis Symptoms started over the weekend. States when he has a flare the only thing that works is Cipro, Flagyl, Levsin and Zofran States he has been having nausea without vomiting. No abdominal tenderness. Related Data Home Medications Medication Instructions Recorded Confirmed diphenhydramine HCl 50 mg capsule 50 mg PO QHS 06/24/22 01/26/23 tetrahydrozoline 0.05 % eye drops 2 drp EACH EYE TID 06/24/22 01/26/23 (Visine) cyclobenzaprine 10 mg tablet 10 mg PO .prn 10/27/22 01/26/23 Allergies Allergy/AdvReac Type Severity Reaction Status Date / Time Iodinated Contrast Media Allergy Severe Anaphylaxis Verified 12/27/22 12:35 metformin Allergy Severe Stopped Verified 12/27/22 12:35 Breathing Sulfa (Sulfonamide Allergy Severe Anaphylaxis Verified 12/27/22 12:35 Antibiotics) sulfamethoxazole Allergy Severe Anaphylaxis Verified 12/27/22 12:35 famotidine Allergy Intermediate Hives Verified 12/27/22 12:35 losartan Allergy Intermediate SWLLEING Verified 12/27/22 12:35 LIP AND HIVES nebivolol Allergy Intermediate LIP Verified 12/27/22 12:35 SWELLING Quinolones Allergy Intermediate Nervousness Verified 12/27/22 12:35 valsartan Allergy Intermediate HIVES/SOB Verified 12/27/22 12:35 amlodipine Allergy Mild HIVES Verified 12/27/22 12:35 azithromycin Allergy Mild Nervousness Verified 12/27/22 12:35 spironolactone Allergy Mild RASH AND Verified 12/27/22 12:35 ITCHING trimethoprim Allergy Mild RASH Verified 12/27/22 12:35 cephalexin AdvReac Mild Nervousness Verified 12/27/22 12:35 flavoxate AdvReac Mild Nervousness Verified 12/27/22 12:35 levofloxacin AdvReac Mild Nervousness Verified 12/27/22 12:35 lidocaine AdvReac Mild Nervousness Verified 12/27/22 12:35 lisinopril AdvReac Mild Nervousness Verified 12/27/22 12:35 nitrofurantoin AdvReac Mild Nervousness Verified 12/27/22 12:35 oxycodone AdvReac Mild Nervousness Verified 12/27/22 12:35 paroxetine AdvReac Mild Nervousness Verified 12/27/22 12:35 Review of Systems Review of Systems: All systems reviewed & are unremarkable except as noted in HPI and below Constitutional: Constitutional: Reports no additional constitutional complaints Eyes: Eyes: Reports no additional eye complaints ENT: Reports system reviewed and no additional complaints, except as documented Cardiovascular: Cardiovascular: Reports no additional cardiovascular complaints, Denies chest pain and Denies dyspnea Respiratory: Respiratory: Reports no additional respiratory complaints, Denies chest congestion, Denies cough and Denies dyspnea Gastrointestinal: Gastrointestinal: Reports as per HPI, Denies abdominal pain, Reports GI cramping (left lower quadrant), Reports diarrhea, Reports nausea and Denies vomiting Genitourinary: Genitourinary: Reports no additional male genitourinary complaints Musculoskeletal: Musculoskeletal: Reports no additional musculoskeletal complaints Integumentary/Breasts: Skin/Breast: Reports system reviewed and no additional complaints, except as docu Neurologic: Reports system reviewed and no additional complaints, except as documented Psychiatric: Psychiatric: Reports no additional psychiatric complaints Allergic/Immunologic: Allergic/Immunologic: Reports no additional allergic/immunologic complaints PMFSH Past Medical History Medical History Anemia Anxiety Asthma CAD (coronary artery disease) Chronic post-traumatic stress disorder (PTSD) Concussion Depression Di
--- NOTE | 2023-01-26 10:05 | PC.NURSE ---
Accompanied Nery Hoang TRIAGE REGISTERED NURSE during exam. Discussed transfer to ER and pt declined.
== END 2023-01-26 10:30 | disposition home or self-care (01) ==
PROVIDERS: Emergency Provider Nurse Practitioner
DX: K57.92 Diverticulitis of intestine, part unspecified, without perforation or abscess without bleeding (principal); Z87.891 Personal history of nicotine dependence; J45.909 Unspecified asthma, uncomplicated; I25.10 Atherosclerotic heart disease of native coronary artery without angina pectoris; K21.9 Gastro-esophageal reflux disease without esophagitis; I25.2 Old myocardial infarction; I10 Essential (primary) hypertension; E78.5 Hyperlipidemia, unspecified; Z98.84 Bariatric surgery status
CPT/HCPCS: 99213; G0463

== ENCOUNTER 2023-02-05 09:43 | Outpatient (CLI) | payer OTHER, SELFPAY ==
[2023-02-05 11:06] LABS: Cholesterol 162 mg/dL (0-200); HDL Direct 23 mg/dL; Triglycerides 131 mg/dL (<150)
[2023-02-05 11:17] LABS: LDL Cholesterol Direct 106 mg/dL
[2023-02-05 11:21] LABS: Hemoglobin A1C 5.9 % (<5.7)
== END 2023-02-05 09:44 | disposition home or self-care (01) ==
PROVIDERS: PCP Family Medicine; Visit Provider Physician Assistant
DX: E78.5 Hyperlipidemia, unspecified (principal); E11.9 Type 2 diabetes mellitus without complications; I25.10 Atherosclerotic heart disease of native coronary artery without angina pectoris
CPT/HCPCS: 36415; 80061; 83036

== ENCOUNTER 2023-02-19 11:33 | Outpatient (CLI) | payer OTHER, SELFPAY ==
--- NOTE | ~2023-02-19 | XR_ITS ---
Right wrist Technique: PA, oblique, lateral, and ulnar deviation views were obtained. Clinical History: Pain Findings: No acute fracture or dislocation is seen. Osseous alignment is anatomic. Joint spaces are p reserved. Soft tissues are unremarkable. Impression: Unremarkable right wrist radiographs. Reviewed, dictated and finalized at location . Impression: Unremarkable right wrist radiographs.
[2023-02-19 12:00] LABS: Basophils Percent Auto 0.4 % (0.2-1.2); Eosinophils Absolute Auto 0.2 K/mm3 (0-0.3); Eosinophils Percent Auto 2.4 % (0-4.4); Hematocrit 38.7 % (42.0-52.0); Hemoglobin 11.6 g/dL (14.0-18.0); Immature Granulocyte Absolute 0.02 K/mm3 (0.00-0.031); Immature Granulocyte Percent A 0.3 % (0-0.5); Lymphocytes Absolute Auto 1.98 K/mm3 (0.9-3.2); Lymphocytes Percent Auto 29.6 % (18.3-44.2); Mean Corpuscular Hemoglobin 20.8 pg (26-34); Mean Corpuscular Volume 69.4 fl (80-100); Mean Platelet Volume 9.4 fl (7.4-10.4); Monocytes Absolute Auto 0.5 K/mm3 (0.1-0.6); Monocytes Percent Auto 7.2 % (2.6-8.5); Neutrophils Percent Auto 60.1 % (45.5-73.1); Platelet Count Result 168 k/mm3 (150-375); Red Blood Count 5.58 M/mm3 (4.6-6.20); Red Cell Distribution Width 18.1 % (11.5-14.5); White Blood Count 6.7 K/mm3 (4.5-10.0)
[2023-02-19 12:12] LABS: Alanine Aminotransferase 28 U/L (6-50); Albumin Level 4.3 g/dL (3.5-5.1); Alkaline Phosphatase 76 U/L (38-126); Anion Gap 10 mmol/L (8-16); Aspartate Amino Transferase 32 U/L (17-59); Bilirubin,Total 1.1 mg/dL (0.2-1.3); Blood Urea Nitrogen 14 mg/dL (9-20); Calcium 8.9 mg/dL (8.4-10.2); Carbon Dioxide 26 mmol/L (22-30); Chloride 104 mmol/L (98-107); Estimated Glomerular Filt Rate > 60; Glucose 186 mg/dL (65-110); Potassium 3.8 mmol/L (3.4-5.0); Sodium 140 mmol/L (137-145)
[2023-02-19 12:49] LABS: Free T4 Free Thyroxine 1.03 ng/mL (0.78-2.19)
== END 2023-02-19 11:34 | disposition home or self-care (01) ==
LOC: ANHLAB 11:38
PROVIDERS: PCP Physician Assistant; Visit Provider Physician Assistant
DX: R53.83 Other fatigue (principal); I10 Essential (primary) hypertension; M25.531 Pain in right wrist
CPT/HCPCS: 36415; 73110; 80053; 84439; 84443; 85025

== ENCOUNTER 2023-03-09 08:55 | Emergency (ER) | payer OTHER, SELFPAY ==
[2023-03-09 09:05] VITALS: BP 143/85; PULSE 62; RESP 16; TEMP 37.2; O2SAT 99
--- NOTE | 2023-03-09 09:21 | ED.EAR ---
HPI - Ear Problem General Chief complaint: Ear Stated complaint: Left Ear Irritation Time Seen by Provider: 03/09/23 09:21 Source: patient, RN notes reviewed and old records reviewed Mode of arrival: ambulatory Limitations: no limitations History of Present Illness HPI Narrative: 53 year old male who presents to express care with complaints of left ear pain with some redness and raised area noted on antihelical fold region of his ear which appears like a insect bite for the past 2 days.. Patient is also complaining of some inner left ear pain with minimal irritation to canal noted TM normal in appearance. Patient reports concern of redness of ear area and wonders if could be spider bite, no sluffing of tissue noted or any pustule type of formation. Patient is presently on CIPRO and Flagyl for GI issues and just completed Amoxicillin for sinus problem. Patient reports that he has taken Tylenol for his discomfort and put some Neosporin on his left outer ear. MD Complaint: other (bite on ear) Location: left ear Severity: severe (7/10) Discharge from ear: Reports no Treatment prior to arrival: other (Tylenol) Related Data Allergies Allergy/AdvReac Type Severity Reaction Status Date / Time Iodinated Contrast Media Allergy Severe Anaphylaxis Verified 03/09/23 09:08 metformin Allergy Severe Stopped Verified 03/09/23 09:08 Breathing Sulfa (Sulfonamide Allergy Severe Anaphylaxis Verified 03/09/23 09:08 Antibiotics) sulfamethoxazole Allergy Severe Anaphylaxis Verified 03/09/23 09:08 famotidine Allergy Intermediate Hives Verified 03/09/23 09:08 losartan Allergy Intermediate SWLLEING Verified 03/09/23 09:08 LIP AND HIVES nebivolol Allergy Intermediate LIP Verified 03/09/23 09:08 SWELLING Quinolones Allergy Intermediate Nervousness Verified 03/09/23 09:08 valsartan Allergy Intermediate HIVES/SOB Verified 03/09/23 09:08 amlodipine Allergy Mild HIVES Verified 03/09/23 09:08 azithromycin Allergy Mild Nervousness Verified 02/03/23 15:14 spironolactone Allergy Mild RASH AND Verified 02/03/23 15:14 ITCHING trimethoprim Allergy Mild RASH Verified 02/03/23 15:14 cephalexin AdvReac Mild Nervousness Verified 02/03/23 15:14 flavoxate AdvReac Mild Nervousness Verified 02/03/23 15:14 levofloxacin AdvReac Mild Nervousness Verified 02/03/23 15:14 lidocaine AdvReac Mild Nervousness Verified 02/03/23 15:14 lisinopril AdvReac Mild Nervousness Verified 02/03/23 15:14 nitrofurantoin AdvReac Mild Nervousness Verified 02/03/23 15:14 oxycodone AdvReac Mild Nervousness Verified 02/03/23 15:14 paroxetine AdvReac Mild Nervousness Verified 02/03/23 15:14 Review of Systems Review of Systems: CONSTITUTIONAL: Denies fever, chills, or sweats. CARDIOVASCULAR: Denies chest pain, palpitations, or edema. RESPIRATORY: Denies cough or dyspnea. SKIN: Reports red spot to his left ear along antihelical fold appears as insect bite with minimal swelling.also complaints lfeft ear canal discomfort with minimal irritation to canal noted TM normal. MUSCULOSKELETAL: Denies joint pain or myalgia. NEUROLOGIC: Denies headache, numbness, or weakness. All systems reviewed & are unremarkable except as noted in HPI and below PMFSH Past Medical History Medical History Allergic rhinitis Anxiety Asthma CAD (coronary artery disease) history [place] Chronic post-traumatic stress disorder (PTSD) Chronic sinusitis Concussion Depression GERD (gastroesophageal reflux disease) HTN (hypertension) Prediabetes Sleep apnea Surgical History Surgical History H/O gastric bypass History of cardiac cath History of colonoscopy Hx of cholecystectomy Family History Family History Grandparent Family history of obesity Hypertension Diabetes mellitus Mother Depression Patient's mother is in good health Fami
--- NOTE | 2023-03-09 10:38 | PC.NURSE ---
10:06- pt called back requesting to speak to RN or [employer] about his RXs. VENTURA Traylor spoke with patient
--- NOTE | 2023-03-09 15:54 | PC.NURSE ---
5140- Pt called back again, spoke with VENTURA Traylor. stated he did not get his medication yet but does not feel good. Was informed if his condition is worsening he should be seen in ER.
== END 2023-03-09 09:50 | disposition home or self-care (01) ==
PROVIDERS: Emergency Provider Registered Nurse; PCP Physician Assistant
DX: H60.92 Unspecified otitis externa, left ear (principal); S00.462A Insect bite (nonvenomous) of left ear, initial encounter; W57.XXXA Bitten or stung by nonvenomous insect and other nonvenomous arthropods, initial encounter; Z87.891 Personal history of nicotine dependence; J45.909 Unspecified asthma, uncomplicated; I25.10 Atherosclerotic heart disease of native coronary artery without angina pectoris; K21.9 Gastro-esophageal reflux disease without esophagitis; I10 Essential (primary) hypertension; R73.03 Prediabetes; Z98.84 Bariatric surgery status; I25.2 Old myocardial infarction; F41.9 Anxiety disorder, unspecified; F32.A Depression, unspecified; F43.10 Post-traumatic stress disorder, unspecified
CPT/HCPCS: 99213; G0463

== ENCOUNTER 2023-03-22 07:23 | Emergency (ER) | payer OTHER, SELFPAY ==
[2023-03-22] VITALS (8 sets, daily range): BP systolic 138–156; BP diastolic 77–95; PULSE 56–60; RESP 16–18; TEMP 37; O2SAT 97–99
--- NOTE | ~2023-03-22 | CT_ITS ---
EXAMINATION: CT abdomen pelvis wo con DATE: 03/22/2023 08:32 INDICATION: Epigastric abdominal pain TECHNIQUE: Computed tomography (CT) of the abdomen and pelvis was performed without intravenous contr ast. The dose-length product (DLP) was 1351.58 mGy-cm. Automated exposure control and iterative recon struction technique were employed. COMPARISON: 10/01/2019 FINDINGS: Minimal dependent atelectasis is present in the lung bases. The heart size is normal. There are changes of cholecystectomy. The liver, spleen, pancreas, and adrenal glands are normal. There ar e two nonobstructing stones of the right kidney measuring up to 4 mm. There is a 4 mm nonobstructing stone of the left mid kidney. There is a 10 mm cyst of the left kidney. No pathologically enlarged ab dominal or pelvic lymph nodes are identified. No free intraperitoneal gas or evidence of bowel obstru ction. There are bilateral inguinal hernias containing fat. There is stable chronic thickening and st ricture of the sigmoid colon. There is chronic tethering of the urinary bladder to the sigmoid colon without significant change. There is mild lumbar spondylosis. IMPRESSION: 1. No CT correlate for the patient's symptoms. 2. Chronic wall thickening and sigmoid stricture without significant change. 3. Bilateral nonobstructing nephrolithiasis. Reviewed, dictated and finalized at location B.
--- NOTE | ~2023-03-22 | XR_ITS ---
Clinical Indication: Shortness of breath PA and lateral views of the chest: Comparison: 05/25/2022 Findings: The lungs are clear, without evidence of focal consolidation or pleural effusion. Cardiome diastinal silhouette is within normal limits. Bones and soft tissues are unremarkable. Impression: Normal chest. Reviewed, dictated and finalized at location . Impression: Normal chest.
--- NOTE | 2023-03-22 07:35 | ECG_ITS ---
Measurements Intervals [place] Rate: 62 P: -14 IL: 168 QRS: 23 QRSD: 101 T: 22 QT: 382 QTc: 390 Interpretive Statements SINUS RHYTHM BASELINE ARTIFACT- I, II, III, AVR, AVF, V4-V6 NORMAL ECG COMPARED TO ECG 01/28/2022 18:07:56 SINUS RHYTHM NOW PRESENT Electronically Signed On 03-22-2023 7:52:19 CDT by Yonathan Ross D.O.
--- NOTE | 2023-03-22 07:58 | ED.GENADULT ---
HPI - General Adult General Chief complaint: Chest Pain Stated complaint: chest pain Time Seen by Provider: 03/22/23 07:38 History of Present Illness HPI narrative: This is a 53-year-old male, with past history of GERD, who presents to the emergency department complaining of epigastric abdominal pain and chest pain for the past 6 days, worse in the last 2. He describes the pain as burning and pressure-like, associated with burning sensation in the throat and intermittent shortness of breath. He states this pain is similar to previous episodes of acid reflux, though worse. Related Data Allergies Allergy/AdvReac Type Severity Reaction Status Date / Time Iodinated Contrast Media Allergy Severe Anaphylaxis Verified 03/22/23 07:46 metformin Allergy Severe Stopped Verified 03/22/23 07:46 Breathing Sulfa (Sulfonamide Allergy Severe Anaphylaxis Verified 03/22/23 07:46 Antibiotics) sulfamethoxazole Allergy Severe Anaphylaxis Verified 03/22/23 07:46 famotidine Allergy Intermediate Hives Verified 03/22/23 07:46 losartan Allergy Intermediate SWLLEING Verified 03/22/23 07:46 LIP AND HIVES nebivolol Allergy Intermediate LIP Verified 03/22/23 07:46 SWELLING Quinolones Allergy Intermediate Nervousness Verified 03/22/23 07:46 valsartan Allergy Intermediate HIVES/SOB Verified 03/22/23 07:46 amlodipine Allergy Mild HIVES Verified 03/22/23 07:46 azithromycin Allergy Mild Nervousness Verified 03/22/23 07:46 spironolactone Allergy Mild RASH AND Verified 03/22/23 07:46 ITCHING trimethoprim Allergy Mild RASH Verified 03/22/23 07:46 cephalexin AdvReac Mild Nervousness Verified 03/22/23 07:46 flavoxate AdvReac Mild Nervousness Verified 03/22/23 07:46 levofloxacin AdvReac Mild Nervousness Verified 03/22/23 07:46 lidocaine AdvReac Mild Nervousness Verified 03/22/23 07:46 lisinopril AdvReac Mild Nervousness Verified 03/22/23 07:46 nitrofurantoin AdvReac Mild Nervousness Verified 03/22/23 07:46 oxycodone AdvReac Mild Nervousness Verified 03/22/23 07:46 paroxetine AdvReac Mild Nervousness Verified 03/22/23 07:46 Review of Systems Review of Systems: CONSTITUTIONAL: Denies fever, chills, or sweats. CARDIOVASCULAR: Denies chest pain, palpitations, or edema. RESPIRATORY: Denies cough or dyspnea. GASTROINTESTINAL: Epigastric abdominal pain described as burning denies nausea, vomiting, or diarrhea. GENITOURINARY: Denies dysuria or hematuria. SKIN: Denies rash or itching. MUSCULOSKELETAL: Denies back pain, joint pain, or myalgia. NEUROLOGIC: Intermittent lightheadedness denies headache, numbness, or weakness. PSYCHIATRIC: Denies anxiety or depression. [facility] Past Medical History Medical History Allergic rhinitis Anxiety Asthma CAD (coronary artery disease) history [place] Chronic post-traumatic stress disorder (PTSD) Chronic sinusitis Concussion Depression GERD (gastroesophageal reflux disease) HTN (hypertension) Prediabetes Sleep apnea Surgical History Surgical History H/O gastric bypass History of cardiac cath History of colonoscopy Hx of cholecystectomy Family History Family History Grandparent Family history of obesity Hypertension Diabetes mellitus Mother Depression Patient's mother is in good health Family history of mental disorder Father Hypertension Patient's father is in good health Family history of alcoholism Cerebrovascular accident Sibling Patient's sister is in good health Patient's brother is in good health Father Cerebrovascular accident Alcoholism Hypertension Heart disease Mother Family history of malignant neoplasm Depression Hypertension Other Family history of cardiovascular disease Social History Social History Smoking status: Former smoker S
[2023-03-22 07:59] LABS: Basophils Percent Auto 0.7 % (0.2-1.2); Eosinophils Absolute Auto 0.1 K/mm3 (0-0.3); Hematocrit 40.6 % (42.0-52.0); Hemoglobin 11.9 g/dL (14.0-18.0); Immature Granulocyte Absolute 0.06 K/mm3 (0.00-0.031); Immature Granulocyte Percent A 1.1 % (0-0.5); Lymphocytes Absolute Auto 1.92 K/mm3 (0.9-3.2); Mean Corpuscular HGB Conc 29.3 g/dl (32-36); Mean Corpuscular Hemoglobin 20.3 pg (26-34); Mean Corpuscular Volume 69.3 fl (80-100); Mean Platelet Volume 8.9 fl (7.4-10.4); Monocytes Absolute Auto 0.3 K/mm3 (0.1-0.6); Monocytes Percent Auto 5.9 % (2.6-8.5); Neutrophils Absolute Auto 3.2 K/mm3 (1.3-6.7); Neutrophils Percent Auto 56.3 % (45.5-73.1); Platelet Count Result 171 k/mm3 (150-375); Red Blood Count 5.86 M/mm3 (4.6-6.20); Red Cell Distribution Width 18.5 % (11.5-14.5); White Blood Count 5.6 K/mm3 (4.5-10.0)
[2023-03-22 08:07] LABS: Alanine Aminotransferase 32 U/L (6-50); Albumin Level 4.4 g/dL (3.5-5.1); Alkaline Phosphatase 58 U/L (38-126); Anion Gap 4 mmol/L (8-16); Aspartate Amino Transferase 32 U/L (17-59); Bilirubin,Total 1.8 mg/dL (0.2-1.3); Blood Urea Nitrogen 7 mg/dL (9-20); Calcium 9.1 mg/dL (8.4-10.2); Carbon Dioxide 34 mmol/L (22-30); Chloride 99 mmol/L (98-107); Estimated CRCL calculation 99 ml/min; Estimated Glomerular Filt Rate > 60; Glucose 119 mg/dL (65-110); Lipase 117 U/L (23-300); Potassium 3.1 mmol/L (3.4-5.0); Sodium 137 mmol/L (137-145)
--- NOTE | 2023-03-22 08:07 | PC.NURSE ---
Pt taken to x-ray
--- NOTE | 2023-03-22 08:14 | PC.NURSE ---
Pt refused Belladonna due to sure if he is allergic to it. Belladonna not given
[2023-03-22 08:19] LABS: Hypochromasia 1+ (NORMAL); Platelet Estimate Adequate (Adequate); Schistocytes None Seen (NORMAL); Troponin I 0.031 ng/mL (0.000-0.034)
--- NOTE | 2023-03-22 08:32 | PC.NURSE ---
Pt taken to CT
[2023-03-22 08:34] LABS: Prothrombin Time 14.1 Seconds (11.1-14.7)
[2023-03-22 08:35] LABS: Partial Thromboplastin Time 32.3 SECONDS (22.3-36.8)
[2023-03-22] MEDS: LACTATED RINGERS 2,000 ML 999 ML IV CONT (08:36)
[2023-03-22 11:03] LABS: Troponin I < 0.012 ng/mL (0.000-0.034)
== END 2023-03-22 12:00 | disposition home or self-care (01) ==
PROVIDERS: Emergency Provider Preventive Medicine Aerospace Medicine; PCP Physician Assistant
DX: K29.70 Gastritis, unspecified, without bleeding (principal); R10.13 Epigastric pain; I25.10 Atherosclerotic heart disease of native coronary artery without angina pectoris; I10 Essential (primary) hypertension; Z87.891 Personal history of nicotine dependence
CPT/HCPCS: 36415; 71046; 74176; 80053; 83690; 84484; 85025; 85610; 85730; 93005; 96360; 96361; 99284; A9270; J7120

== ENCOUNTER 2023-04-13 11:29 | Outpatient (CLI) | payer OTHER, SELFPAY ==
[2023-04-13 12:04] LABS: Alanine Aminotransferase 28 U/L (6-50); Albumin Level 4.5 g/dL (3.5-5.1); Alkaline Phosphatase 62 U/L (38-126); Anion Gap 7 mmol/L (8-16); Aspartate Amino Transferase 30 U/L (17-59); Blood Urea Nitrogen 12 mg/dL (9-20); Calcium 9.1 mg/dL (8.4-10.2); Carbon Dioxide 29 mmol/L (22-30); Chloride 103 mmol/L (98-107); Estimated Glomerular Filt Rate > 60; Glucose 101 mg/dL (65-110); Potassium 3.3 mmol/L (3.4-5.0); Sodium 139 mmol/L (137-145)
== END 2023-04-13 11:30 | disposition home or self-care (01) ==
PROVIDERS: PCP Family Medicine; Visit Provider Physician Assistant
DX: E87.6 Hypokalemia (principal)
CPT/HCPCS: 36415; 80053

== ENCOUNTER 2023-04-22 09:53 | Emergency (ER) | payer OTHER, SELFPAY ==
--- NOTE | ~2023-04-22 | XR_ITS ---
EXAMINATION: XR foot LT min 3V DATE: 04/22/2023 10:34 INDICATION: Left foot injury. TECHNIQUE: 4 views of left foot were obtained. COMPARISON: None. FINDINGS: Bone alignment is normal. No fracture. There is mild osteoarthritis of first metatarsophala ngeal joint, talonavicular joint, and some of the interphalangeal joints. IMPRESSION: 1. Mild polyarticular osteoarthritis. Reviewed, dictated and finalized at location A.
[2023-04-22 10:08] VITALS: BP 155/88; PULSE 61; RESP 18; TEMP 37.3; O2SAT 98
--- NOTE | 2023-04-22 10:26 | ED.LOWEXIN ---
HPI - Extremity Injury (Lower) General Chief Complaint: Skin/Abscess/Foreign Body Stated Complaint: FB left toe Time Seen by Provider: 04/22/23 09:55 Source: patient Mode of arrival: ambulatory Limitations: no limitations History of Present Illness HPI Narrative: Patient is a 53-year-old male who presents with sensation of foreign body in left 2nd toe. Patient states he was in the shower on Wednesday and after getting out he states states he felt something slide into his toe . Patient states he has used spread and Epson salt soaks with no drainage or foreign body removal noted. Patient states he has diabetic and wants to ensure there is no infection. Related Data Allergies Allergy/AdvReac Type Severity Reaction Status Date / Time Iodinated Contrast Media Allergy Severe Anaphylaxis Verified 04/22/23 10:00 metformin Allergy Severe Stopped Verified 04/22/23 10:00 Breathing Sulfa (Sulfonamide Allergy Severe Anaphylaxis Verified 04/22/23 10:00 Antibiotics) sulfamethoxazole Allergy Severe Anaphylaxis Verified 04/22/23 10:00 famotidine Allergy Intermediate Hives Verified 04/22/23 10:00 losartan Allergy Intermediate SWLLEING Verified 04/22/23 10:00 LIP AND HIVES nebivolol Allergy Intermediate LIP Verified 04/22/23 10:00 SWELLING Quinolones Allergy Intermediate Nervousness Verified 04/22/23 10:00 valsartan Allergy Intermediate HIVES/SOB Verified 04/22/23 10:00 amlodipine Allergy Mild HIVES Verified 04/22/23 10:00 azithromycin Allergy Mild Nervousness Verified 04/22/23 10:00 spironolactone Allergy Mild RASH AND Verified 04/22/23 10:00 ITCHING trimethoprim Allergy Mild RASH Verified 04/22/23 10:00 cephalexin AdvReac Mild Nervousness Verified 04/22/23 10:00 flavoxate AdvReac Mild Nervousness Verified 04/22/23 10:00 levofloxacin AdvReac Mild Nervousness Verified 04/22/23 10:00 lidocaine AdvReac Mild Nervousness Verified 04/22/23 10:00 lisinopril AdvReac Mild Nervousness Verified 04/22/23 10:00 nitrofurantoin AdvReac Mild Nervousness Verified 04/22/23 10:00 oxycodone AdvReac Mild Nervousness Verified 04/22/23 10:00 paroxetine AdvReac Mild Nervousness Verified 04/22/23 10:00 Review of Systems Review of Systems: All systems reviewed & are unremarkable except as noted in HPI and below Constitutional: Constitutional: Denies body ache(s), Denies chills, Denies fatigue, Denies fever(s), Denies headache(s), Denies malaise and Denies weakness Eyes: Eyes: Denies blurry vision, Denies irritation and Denies loss of vision ENT: Denies otalgia, Denies headache(s), Denies nasal discharge, Denies sinus pain and Denies sore throat Cardiovascular: Cardiovascular: Denies chest pain, Denies irregular heart rhythm and Denies dyspnea Respiratory: Respiratory: Denies dyspnea Gastrointestinal: Gastrointestinal: Denies abdominal pain, Denies melena, Denies hematochezia, Denies diarrhea, Denies nausea and Denies vomiting Musculoskeletal: Musculoskeletal: Denies back pain, Denies myalgias and Reports arthralgias Integumentary/Breasts: Skin/Breast: Denies pruritus and Denies rash Neurologic: Denies headache(s), Denies loss of vision and Denies weakness Psychiatric: Psychiatric: Reports no additional psychiatric complaints Endocrine: Endocrine: Denies fatigue [facility] Past Medical History Medical History Allergic rhinitis Anxiety Asthma CAD (coronary artery disease) history [place] Chronic post-traumatic stress disorder (PTSD) Chronic sinusitis Concussion Depression GERD (gastroesophageal reflux disease) HTN (hypertension) Prediabetes Sleep apnea Surgical History Surgical History H/O gastric bypass History of cardiac cath History of colonoscopy Hx of cholecystectomy Family History Family History Grandparent Family history of obesity Hypertension Diabetes larissa
== END 2023-04-22 10:54 | disposition home or self-care (01) ==
PROVIDERS: Emergency Provider Nurse Practitioner Family; PCP Physician Assistant
DX: M25.572 Pain in left ankle and joints of left foot (principal); Z87.891 Personal history of nicotine dependence; J45.909 Unspecified asthma, uncomplicated; I25.10 Atherosclerotic heart disease of native coronary artery without angina pectoris; K21.9 Gastro-esophageal reflux disease without esophagitis; I10 Essential (primary) hypertension; R73.03 Prediabetes; Z98.84 Bariatric surgery status; F41.9 Anxiety disorder, unspecified; F32.A Depression, unspecified
CPT/HCPCS: 73630; 99213; G0463

== ENCOUNTER 2023-05-28 08:38 | Emergency (ER) | payer OTHER, SELFPAY ==
--- NOTE | 2023-05-28 08:51 | ED.EYEPROB ---
HPI - Eye Problem General Chief complaint: Eye Problems Stated complaint: red eyes Time Seen by Provider: 05/28/23 09:20 Source: patient and RN notes reviewed Mode of arrival: ambulatory Limitations: no limitations History of Present Illness HPI Narrative: 53-year-old male presents with concern for bilateral red eyes, itchy eyes, drainage. He reports he has been using his allergy eyedrops without relief. He reports history of conjunctivitis. A separate complaint he also reports he has been having diarrhea, he has currently been treated for diverticulitis with Flagyl and Cipro. Denies vision changes. chief complaint: eye redness Related Data Home Medications Medication Instructions Recorded Confirmed ciprofloxacin HCl 500 mg tablet mg 05/28/23 metronidazole 500 mg tablet mg 05/28/23 Allergies Allergy/AdvReac Type Severity Reaction Status Date / Time Iodinated Contrast Media Allergy Severe Anaphylaxis Verified 05/28/23 08:52 metformin Allergy Severe Stopped Verified 05/28/23 08:52 Breathing Sulfa (Sulfonamide Allergy Severe Anaphylaxis Verified 05/28/23 08:52 Antibiotics) sulfamethoxazole Allergy Severe Anaphylaxis Verified 05/28/23 08:52 famotidine Allergy Intermediate Hives Verified 05/28/23 08:52 losartan Allergy Intermediate SWLLEING Verified 05/28/23 08:52 LIP AND HIVES nebivolol Allergy Intermediate LIP Verified 05/28/23 08:52 SWELLING Quinolones Allergy Intermediate Nervousness Verified 05/28/23 08:52 valsartan Allergy Intermediate HIVES/SOB Verified 05/28/23 08:52 amlodipine Allergy Mild HIVES Verified 05/28/23 08:52 azithromycin Allergy Mild Nervousness Verified 05/28/23 08:52 spironolactone Allergy Mild RASH AND Verified 05/28/23 08:52 ITCHING trimethoprim Allergy Mild RASH Verified 05/28/23 08:52 cephalexin AdvReac Mild Nervousness Verified 05/28/23 08:52 flavoxate AdvReac Mild Nervousness Verified 05/28/23 08:52 levofloxacin AdvReac Mild Nervousness Verified 05/28/23 08:52 lidocaine AdvReac Mild Nervousness Verified 05/28/23 08:52 lisinopril AdvReac Mild Nervousness Verified 05/28/23 08:52 nitrofurantoin AdvReac Mild Nervousness Verified 05/28/23 08:52 oxycodone AdvReac Mild Nervousness Verified 05/28/23 08:52 paroxetine AdvReac Mild Nervousness Verified 05/28/23 08:52 Review of Systems Review of Systems: CONSTITUTIONAL: Denies malaise, chills, sweats, or fever. EYES: Denies visual changes. Reports bilateral redness, irritation, discharge. ENT: Denies rhinorrhea, congestion, sinus pain, otalgia or sore throat. SKIN: Denies rash or skin itching. NEUROLOGIC: Denies numbness, weakness, or headache. GI: Reports diarrhea PSYCHIATRIC: Denies anxiety or depression. All systems reviewed & are unremarkable except as noted in HPI and below PMFSH Past Medical History Medical History Allergic rhinitis Anxiety Asthma CAD (coronary artery disease) history [place] Chronic post-traumatic stress disorder (PTSD) Chronic sinusitis Concussion Depression GERD (gastroesophageal reflux disease) HTN (hypertension) Prediabetes Sleep apnea Surgical History Surgical History H/O gastric bypass History of cardiac cath History of colonoscopy Hx of cholecystectomy Family History Family History Grandparent Family history of obesity Hypertension Diabetes mellitus Mother Depression Patient's mother is in good health Family history of mental disorder Father Hypertension Patient's father is in good health Family history of alcoholism Cerebrovascular accident Sibling Patient's sister is in good health Patient's brother is in good health Father Cerebrovascular accident Alcoholism Hypertension Heart disease Mother Family history of malignant neoplasm Depression Hypertension Other Family history of
[2023-05-28 08:57] VITALS: BP 165/86; PULSE 62; RESP 14; TEMP 36.6; O2SAT 98
[2023-05-28 09:43] VITALS: BP 135/84
== END 2023-05-28 09:35 | disposition home or self-care (01) ==
PROVIDERS: Emergency Provider Nurse Practitioner; PCP Physician Assistant
DX: H10.9 Unspecified conjunctivitis (principal); R19.7 Diarrhea, unspecified; I25.10 Atherosclerotic heart disease of native coronary artery without angina pectoris; I10 Essential (primary) hypertension; Z87.891 Personal history of nicotine dependence; Z79.899 Other long term (current) drug therapy
CPT/HCPCS: 99213; G0463

== ENCOUNTER 2023-05-31 08:10 | Emergency (ER) | payer OTHER, SELFPAY ==
--- NOTE | 2023-05-31 08:13 | ED.URI ---
HPI - URI/Sore Throat General Chief Complaint: Upper Respiratory Infection Stated Complaint: cough,headache,congestion Time Seen by Provider: 05/31/23 08:12 Source: patient Mode of arrival: ambulatory Limitations: no limitations History of Present Illness HPI Narrative: Carlos is a 53-year-old anxious male patient presenting to clinic with complaints of cough, headache, and congestion that just started last night. He reports he was having some fatigue as well and slept a lot yesterday. Denies any sore throat, fever but has had chills. COVID testing was negative this morning MD elicited complaint: sore throat and nasal congestion Related Data Home Medications Medication Instructions Recorded Confirmed ciprofloxacin HCl 500 mg tablet mg 05/28/23 metronidazole 500 mg tablet mg 05/28/23 Allergies Allergy/AdvReac Type Severity Reaction Status Date / Time Iodinated Contrast Media Allergy Severe Anaphylaxis Verified 05/31/23 08:30 metformin Allergy Severe Stopped Verified 05/31/23 08:30 Breathing Sulfa (Sulfonamide Allergy Severe Anaphylaxis Verified 05/31/23 08:30 Antibiotics) sulfamethoxazole Allergy Severe Anaphylaxis Verified 05/31/23 08:30 famotidine Allergy Intermediate Hives Verified 05/31/23 08:30 losartan Allergy Intermediate SWLLEING Verified 05/31/23 08:30 LIP AND HIVES nebivolol Allergy Intermediate LIP Verified 05/31/23 08:30 SWELLING Quinolones Allergy Intermediate Nervousness Verified 05/31/23 08:30 valsartan Allergy Intermediate HIVES/SOB Verified 05/31/23 08:30 amlodipine Allergy Mild HIVES Verified 05/31/23 08:30 azithromycin Allergy Mild Nervousness Verified 05/31/23 08:30 spironolactone Allergy Mild RASH AND Verified 05/31/23 08:30 ITCHING trimethoprim Allergy Mild RASH Verified 05/31/23 08:30 cephalexin AdvReac Mild Nervousness Verified 05/31/23 08:30 flavoxate AdvReac Mild Nervousness Verified 05/31/23 08:30 levofloxacin AdvReac Mild Nervousness Verified 05/31/23 08:30 lidocaine AdvReac Mild Nervousness Verified 05/31/23 08:30 lisinopril AdvReac Mild Nervousness Verified 05/31/23 08:30 nitrofurantoin AdvReac Mild Nervousness Verified 05/31/23 08:30 oxycodone AdvReac Mild Nervousness Verified 05/31/23 08:30 paroxetine AdvReac Mild Nervousness Verified 05/31/23 08:30 Review of Systems Review of Systems: Pertinent positives per HPI. Patient denies any fever, chills, rash, headache, visual changes, dizziness, cough, shortness of breath, chest pain, palpitations, nausea, vomiting, diarrhea, constipation, abdominal pain, or any urinary issues. [facility] Past Medical History Medical History Allergic rhinitis Anxiety Asthma CAD (coronary artery disease) history [place] Chronic post-traumatic stress disorder (PTSD) Chronic sinusitis Concussion Depression GERD (gastroesophageal reflux disease) HTN (hypertension) Prediabetes Sleep apnea Surgical History Surgical History H/O gastric bypass History of cardiac cath History of colonoscopy Hx of cholecystectomy Family History Family History Grandparent Family history of obesity Hypertension Diabetes mellitus Mother Depression Patient's mother is in good health Family history of mental disorder Father Hypertension Patient's father is in good health Family history of alcoholism Cerebrovascular accident Sibling Patient's sister is in good health Patient's brother is in good health Father Cerebrovascular accident Alcoholism Hypertension Heart disease Mother Family history of malignant neoplasm Depression Hypertension Other Family history of cardiovascular disease Social History Social History Smoking status: Former smoker Smoking end date: 09/13/95 Alcohol intake:
[2023-05-31 08:22] VITALS: BP 174/94; PULSE 65; RESP 20; TEMP 35.7; O2SAT 99
== END 2023-05-31 08:35 | disposition home or self-care (01) ==
PROVIDERS: Emergency Provider Nurse Practitioner Family
DX: J06.9 Acute upper respiratory infection, unspecified (principal); Z87.891 Personal history of nicotine dependence; J45.909 Unspecified asthma, uncomplicated; I25.10 Atherosclerotic heart disease of native coronary artery without angina pectoris; K21.9 Gastro-esophageal reflux disease without esophagitis; I10 Essential (primary) hypertension; R73.03 Prediabetes; Z98.84 Bariatric surgery status
CPT/HCPCS: 99213; G0463

== ENCOUNTER 2023-06-09 13:00 | Emergency (ER) | payer OTHER, SELFPAY ==
[2023-06-09 13:16] VITALS: BP 155/75; PULSE 67; RESP 16; TEMP 37.2; O2SAT 99
[2023-06-09 13:18] VITALS: BP 155/75; PULSE 67; RESP 16; TEMP 37.2; O2SAT 99
--- NOTE | 2023-06-09 13:41 | ED.GENADULT ---
HPI - General Adult General Chief complaint: Unspecified Stated complaint: Multiple Complaints Time Seen by Provider: 06/09/23 13:41 Source: patient Mode of arrival: ambulatory Limitations: no limitations History of Present Illness HPI narrative: 53 yo M presents with c/o sinus congestion, pressure, headache, fatigue for 2 wks. Took medrol dosepak that did not help. All systems reviewed and negative except as noted above. Related Data Home Medications Medication Instructions Recorded Confirmed indapamide 2.5 mg tablet mg 06/09/23 potassium chloride 10 mEq meq PO 06/09/23 tablet,extended release prednisolone acetate 1 % eye drp 06/09/23 drops,suspension Allergies Allergy/AdvReac Type Severity Reaction Status Date / Time Iodinated Contrast Media Allergy Severe Anaphylaxis Verified 06/09/23 13:13 metformin Allergy Severe Stopped Verified 06/09/23 13:13 Breathing Sulfa (Sulfonamide Allergy Severe Anaphylaxis Verified 06/09/23 13:13 Antibiotics) sulfamethoxazole Allergy Severe Anaphylaxis Verified 06/09/23 13:13 famotidine Allergy Intermediate Hives Verified 06/09/23 13:13 losartan Allergy Intermediate SWLLEING Verified 06/09/23 13:13 LIP AND HIVES nebivolol Allergy Intermediate LIP Verified 06/09/23 13:13 SWELLING Quinolones Allergy Intermediate Nervousness Verified 06/09/23 13:13 valsartan Allergy Intermediate HIVES/SOB Verified 06/09/23 13:13 amlodipine Allergy Mild HIVES Verified 06/09/23 13:13 azithromycin Allergy Mild Nervousness Verified 06/09/23 13:13 spironolactone Allergy Mild RASH AND Verified 06/09/23 13:13 ITCHING trimethoprim Allergy Mild RASH Verified 06/09/23 13:13 cephalexin AdvReac Mild Nervousness Verified 06/09/23 13:13 flavoxate AdvReac Mild Nervousness Verified 06/09/23 13:13 levofloxacin AdvReac Mild Nervousness Verified 06/09/23 13:13 lidocaine AdvReac Mild Nervousness Verified 06/09/23 13:13 lisinopril AdvReac Mild Nervousness Verified 06/09/23 13:13 nitrofurantoin AdvReac Mild Nervousness Verified 06/09/23 13:13 oxycodone AdvReac Mild Nervousness Verified 06/09/23 13:13 paroxetine AdvReac Mild Nervousness Verified 06/09/23 13:13 Review of Systems Review of Systems: CONSTITUTIONAL: Denies fever, chills, or sweats. EYES: Denies visual changes, redness, or discharge. ENT: Reports rhinorrhea, congestion,sinus pressure. Denies sore throat, or otalgia. CARDIOVASCULAR: Denies chest pain, palpitations, or edema. RESPIRATORY: Denies cough or dyspnea. GASTROINTESTINAL: Denies abdominal pain, nausea, vomiting, or diarrhea. GENITOURINARY: Denies dysuria or hematuria. SKIN: Denies rash or itching. MUSCULOSKELETAL: Denies back pain, joint pain, or myalgia. NEUROLOGIC: Denies headache, numbness, or weakness. PSYCHIATRIC: Denies anxiety or depression. All other systems reviewed are negative, except as documented in HPI. [facility] Past Medical History Medical History Allergic rhinitis Anxiety Asthma CAD (coronary artery disease) history [place] Chronic post-traumatic stress disorder (PTSD) Chronic sinusitis Concussion Depression GERD (gastroesophageal reflux disease) HTN (hypertension) Prediabetes Sleep apnea Surgical History Surgical History H/O gastric bypass History of cardiac cath History of colonoscopy Hx of cholecystectomy Family History Family History Grandparent Family history of obesity Hypertension Diabetes mellitus Mother Depression Patient's mother is in good health Family history of mental disorder Father Hypertension Patient's father is in good health Family history of alcoholism Cerebrovascular accident Sibling Patient's sister is in good health Patient's brother is in good health Father Cerebrovascular accident Alcoholism Hypertension Heart disease M
[2023-06-09 14:15] VITALS: BP 176/91
== END 2023-06-09 14:15 | disposition home or self-care (01) ==
PROVIDERS: Emergency Provider Nurse Practitioner Family; PCP Physician Assistant
DX: J01.90 Acute sinusitis, unspecified (principal); B96.89 Other specified bacterial agents as the cause of diseases classified elsewhere; H66.92 Otitis media, unspecified, left ear; I25.10 Atherosclerotic heart disease of native coronary artery without angina pectoris; I10 Essential (primary) hypertension; Z79.899 Other long term (current) drug therapy; Z87.891 Personal history of nicotine dependence
CPT/HCPCS: 99213; G0463

== ENCOUNTER 2023-07-05 10:31 | Emergency (ER) | payer OTHER, SELFPAY ==
[2023-07-05 10:51] VITALS: BP 151/82; PULSE 64; RESP 12; TEMP 36.2; O2SAT 100
--- NOTE | 2023-07-05 10:54 | ED.URI ---
HPI - URI/Sore Throat General Chief Complaint: Upper Respiratory Infection Stated Complaint: chills,sneezing,stomach issue Time Seen by Provider: 07/05/23 10:54 Source: patient Mode of arrival: ambulatory Limitations: no limitations History of Present Illness HPI Narrative: 53-year-old male presents stating I am still not feeling better from my visits that I had here 1 month ago . Patient states that he is still having sinus drainage. Also reports that his ice or still itching. Has seen an project controls specialist for this and was given prednisolone drops. Is supposed to see an psychodramatist but states that they never called him back to make that appointment. He has not followed up with the project controls specialist regarding psychodramatist appointment himself that was discussed 3 weeks ago. He does not have a primary care physician, and no longer wants to see his ENT that he saw in the past regarding his sinus symptoms. He states yesterday he began to feel fatigued, chills and sweats. States that he has left lower quadrant pain and thinks that it is related to his diverticulitis. States eye normally just gets Cipro and Flagyl. Patient reports no urinary symptoms but then states when I go sometimes it is very dark . All systems reviewed and negative except as noted above. Related Data Home Medications Medication Instructions Recorded Confirmed indapamide 2.5 mg tablet 2.5 mg PO DIRECTED 06/09/23 07/05/23 potassium chloride 10 mEq 10 meq PO DAILY 06/09/23 07/05/23 tablet,extended release prednisolone acetate 1 % eye 1 drp ophthalmic (eye) DIRECTED 06/09/23 07/05/23 drops,suspension Allergies Allergy/AdvReac Type Severity Reaction Status Date / Time Iodinated Contrast Media Allergy Severe Anaphylaxis Verified 06/09/23 13:13 metformin Allergy Severe Stopped Verified 06/09/23 13:13 Breathing Sulfa (Sulfonamide Allergy Severe Anaphylaxis Verified 06/09/23 13:13 Antibiotics) sulfamethoxazole Allergy Severe Anaphylaxis Verified 06/09/23 13:13 famotidine Allergy Intermediate Hives Verified 06/09/23 13:13 losartan Allergy Intermediate SWLLEING Verified 06/09/23 13:13 LIP AND HIVES nebivolol Allergy Intermediate LIP Verified 06/09/23 13:13 SWELLING Quinolones Allergy Intermediate Nervousness Verified 06/09/23 13:13 valsartan Allergy Intermediate HIVES/SOB Verified 06/09/23 13:13 amlodipine Allergy Mild HIVES Verified 06/09/23 13:13 azithromycin Allergy Mild Nervousness Verified 06/09/23 13:13 spironolactone Allergy Mild RASH AND Verified 06/09/23 13:13 ITCHING trimethoprim Allergy Mild RASH Verified 06/09/23 13:13 cephalexin AdvReac Mild Nervousness Verified 06/09/23 13:13 flavoxate AdvReac Mild Nervousness Verified 06/09/23 13:13 levofloxacin AdvReac Mild Nervousness Verified 06/09/23 13:13 lidocaine AdvReac Mild Nervousness Verified 06/09/23 13:13 lisinopril AdvReac Mild Nervousness Verified 06/09/23 13:13 nitrofurantoin AdvReac Mild Nervousness Verified 06/09/23 13:13 oxycodone AdvReac Mild Nervousness Verified 06/09/23 13:13 paroxetine AdvReac Mild Nervousness Verified 06/09/23 13:13 Review of Systems Review of Systems: CONSTITUTIONAL: Denies fever . Reports chills, sweats, fatigue. EYES: Denies visual changes, redness, or discharge. reports bilateral eye itching. ENT: Denies rhinorrhea, congestion, sore throat, or otalgia. reports postnasal drainage. CARDIOVASCULAR: Denies chest pain, palpitations, or edema. RESPIRATORY: Denies cough or dyspnea. GASTROINTESTINAL: Reports left lower quadrant abdominal pain. Denies nausea, vomiting, or diarrhea. GENITOURINARY: Denies dysuria or hematuria. SKIN: Denies rash or itching. MUSCULOSKELETAL: Denies back pain, joint pain, or myalgia. NEUROLOGIC: Denies headache, numbness, or weakness. PSYCHIATRIC: Denies anxiety or depression. All other systems reviewed are negative, except as documented in HPI. [facility] Past Medical History Medical History (Re
[2023-07-05 11:11] LABS: Glucose Point of Care 120 mg/dl (65-105)
--- NOTE | 2023-07-05 12:12 | PC.NURSE ---
1130- risk and benefit explained to pt by provider of going to the er for labs and ct scan to check on his diverticulitis, and pt states that he is not going to go to the er, and pt states that he is not willing to sign ama form, even when it was explained that it was only for ama against going to the er.
== END 2023-07-05 11:41 | disposition left against medical advice (07) ==
PROVIDERS: Emergency Provider Nurse Practitioner Family; PCP Physician Assistant
DX: J32.9 Chronic sinusitis, unspecified (principal); R10.32 Left lower quadrant pain; Z87.891 Personal history of nicotine dependence; J45.909 Unspecified asthma, uncomplicated; I25.10 Atherosclerotic heart disease of native coronary artery without angina pectoris; I25.2 Old myocardial infarction; K21.9 Gastro-esophageal reflux disease without esophagitis; I10 Essential (primary) hypertension; R73.03 Prediabetes; Z98.84 Bariatric surgery status; F41.9 Anxiety disorder, unspecified; F32.A Depression, unspecified
CPT/HCPCS: 81003; 82948; 87804; 99213; G0463

== ENCOUNTER 2023-07-27 17:51 | Emergency (ER) | payer OTHER, SELFPAY ==
[2023-07-27 18:11] VITALS: BP 172/89; PULSE 81; RESP 16; TEMP 36.3; O2SAT 99
--- NOTE | 2023-07-27 18:50 | ED.GENADULT ---
HPI - General Adult General Chief complaint: Skin/Abscess/Foreign Body Stated complaint: Wound Check Time Seen by Provider: 07/27/23 18:50 Source: patient, RN notes reviewed and old records reviewed Mode of arrival: ambulatory Limitations: no limitations History of Present Illness HPI narrative: 53-year-old male presents to the [facility] with multiple complaints. Patient has a cyst-like structure he noticed yesterday after getting a haircut. States he squeezed it a couple times. No signs of infection. Patient reports swelling, no swelling, erythema or ecchymosis noted. Patient also reports unusual feeling when he urinates Does not have a primary Related Data Home Medications Medication Instructions Recorded Confirmed indapamide 2.5 mg tablet 2.5 mg PO DIRECTED 06/09/23 07/27/23 potassium chloride 10 mEq 10 meq PO DAILY 06/09/23 07/27/23 tablet,extended release prednisolone acetate 1 % eye 1 drp ophthalmic (eye) DIRECTED 06/09/23 07/27/23 drops,suspension Allergies Allergy/AdvReac Type Severity Reaction Status Date / Time Iodinated Contrast Media Allergy Severe Anaphylaxis Verified 07/27/23 18:48 metformin Allergy Severe Stopped Verified 07/27/23 18:48 Breathing Sulfa (Sulfonamide Allergy Severe Anaphylaxis Verified 07/27/23 18:48 Antibiotics) sulfamethoxazole Allergy Severe Anaphylaxis Verified 07/27/23 18:48 famotidine Allergy Intermediate Hives Verified 07/27/23 18:48 losartan Allergy Intermediate SWLLEING Verified 07/27/23 18:48 LIP AND HIVES nebivolol Allergy Intermediate LIP Verified 07/27/23 18:48 SWELLING Quinolones Allergy Intermediate Nervousness Verified 07/27/23 18:48 valsartan Allergy Intermediate HIVES/SOB Verified 07/27/23 18:48 amlodipine Allergy Mild HIVES Verified 07/27/23 18:48 azithromycin Allergy Mild Nervousness Verified 07/27/23 18:48 spironolactone Allergy Mild RASH AND Verified 07/27/23 18:48 ITCHING trimethoprim Allergy Mild RASH Verified 07/27/23 18:48 cephalexin AdvReac Mild Nervousness Verified 07/27/23 18:48 flavoxate AdvReac Mild Nervousness Verified 07/27/23 18:48 levofloxacin AdvReac Mild Nervousness Verified 07/27/23 18:48 lidocaine AdvReac Mild Nervousness Verified 07/27/23 18:48 lisinopril AdvReac Mild Nervousness Verified 07/27/23 18:48 nitrofurantoin AdvReac Mild Nervousness Verified 07/27/23 18:48 oxycodone AdvReac Mild Nervousness Verified 07/27/23 18:48 paroxetine AdvReac Mild Nervousness Verified 07/27/23 18:48 Review of Systems Review of Systems: All systems reviewed & are unremarkable except as noted in HPI and below Constitutional: Constitutional: Reports no additional constitutional complaints Eyes: Eyes: Reports no additional eye complaints ENT: Reports system reviewed and no additional complaints, except as documented Cardiovascular: Cardiovascular: Reports no additional cardiovascular complaints, Denies chest pain and Denies dyspnea Respiratory: Respiratory: Reports no additional respiratory complaints, Denies chest congestion, Denies cough and Denies dyspnea Gastrointestinal: Gastrointestinal: Reports no additional gastrointestinal complaints, Denies abdominal pain, Denies nausea and Denies vomiting Musculoskeletal: Musculoskeletal: Reports no additional musculoskeletal complaints Integumentary/Breasts: Skin/Breast: Reports as per HPI Neurologic: Reports system reviewed and no additional complaints, except as documented Psychiatric: Psychiatric: Reports no additional psychiatric complaints Allergic/Immunologic: Allergic/Immunologic: Reports no additional allergic/immunologic complaints [facility] Past Medical History Medical History Allergic rhinitis Anxiety Asthma CAD (coronary artery disease) history [place] Chronic post-traumatic stress disorder (PTSD) Chronic sinusitis Concussion Depression GERD (gastroesophageal reflux disease) HTN (hypertension) Prediabetes
[2023-07-27 19:09] VITALS: BP 148/93
== END 2023-07-27 19:09 | disposition home or self-care (01) ==
PROVIDERS: Emergency Provider Nurse Practitioner; PCP Physician Assistant
DX: L72.9 Follicular cyst of the skin and subcutaneous tissue, unspecified (principal); I10 Essential (primary) hypertension; R30.0 Dysuria; J45.909 Unspecified asthma, uncomplicated; I25.10 Atherosclerotic heart disease of native coronary artery without angina pectoris; I25.2 Old myocardial infarction; G21.9 Secondary parkinsonism, unspecified; Z98.84 Bariatric surgery status; Z87.891 Personal history of nicotine dependence; F41.9 Anxiety disorder, unspecified; F32.A Depression, unspecified
CPT/HCPCS: 81003; 99212; G0463

== ENCOUNTER 2023-08-16 09:36 | Emergency (ER) | payer OTHER, SELFPAY ==
[2023-08-16 10:29] VITALS: BP 150/73; PULSE 75; RESP 16; TEMP 36.6; O2SAT 100
--- NOTE | 2023-08-16 10:59 | ED.EAR ---
HPI - Ear Problem General Chief complaint: Ear Stated complaint: Right Ear Irritation Time Seen by Provider: 08/16/23 10:30 Source: patient Mode of arrival: ambulatory Limitations: no limitations History of Present Illness HPI Narrative: Carlos is a 53-year-old male patient presenting to the clinic today with complaints right eye itching and right ear itching with mild discomfort. Also reporting urinary frequency and burning. States the symptoms have been going on for few days. No fever or chills. Related Data Home Medications Medication Instructions Recorded Confirmed indapamide 2.5 mg tablet 2.5 mg PO DIRECTED 06/09/23 08/16/23 potassium chloride 10 mEq 10 meq PO DAILY 06/09/23 08/16/23 tablet,extended release prednisolone acetate 1 % eye 1 drp ophthalmic (eye) DIRECTED 06/09/23 08/16/23 drops,suspension Allergies Allergy/AdvReac Type Severity Reaction Status Date / Time Iodinated Contrast Media Allergy Severe Anaphylaxis Verified 07/27/23 18:48 metformin Allergy Severe Stopped Verified 07/27/23 18:48 Breathing Sulfa (Sulfonamide Allergy Severe Anaphylaxis Verified 07/27/23 18:48 Antibiotics) sulfamethoxazole Allergy Severe Anaphylaxis Verified 07/27/23 18:48 famotidine Allergy Intermediate Hives Verified 07/27/23 18:48 losartan Allergy Intermediate SWLLEING Verified 07/27/23 18:48 LIP AND HIVES nebivolol Allergy Intermediate LIP Verified 07/27/23 18:48 SWELLING Quinolones Allergy Intermediate Nervousness Verified 07/27/23 18:48 valsartan Allergy Intermediate HIVES/SOB Verified 07/27/23 18:48 amlodipine Allergy Mild HIVES Verified 07/27/23 18:48 azithromycin Allergy Mild Nervousness Verified 07/27/23 18:48 spironolactone Allergy Mild RASH AND Verified 07/27/23 18:48 ITCHING trimethoprim Allergy Mild RASH Verified 07/27/23 18:48 cephalexin AdvReac Mild Nervousness Verified 07/27/23 18:48 flavoxate AdvReac Mild Nervousness Verified 07/27/23 18:48 levofloxacin AdvReac Mild Nervousness Verified 07/27/23 18:48 lidocaine AdvReac Mild Nervousness Verified 07/27/23 18:48 lisinopril AdvReac Mild Nervousness Verified 07/27/23 18:48 nitrofurantoin AdvReac Mild Nervousness Verified 07/27/23 18:48 oxycodone AdvReac Mild Nervousness Verified 07/27/23 18:48 paroxetine AdvReac Mild Nervousness Verified 07/27/23 18:48 Review of Systems Review of Systems: Pertinent positives per HPI. Patient denies any fever, chills, rash, headache, visual changes, dizziness, cough, runny nose, sore throat, shortness of breath, chest pain, palpitations, nausea, vomiting, diarrhea, constipation, abdominal pain, or any urinary issues. [facility] Past Medical History Medical History Allergic rhinitis Anxiety Asthma CAD (coronary artery disease) history [place] Chronic post-traumatic stress disorder (PTSD) Chronic sinusitis Concussion Depression GERD (gastroesophageal reflux disease) HTN (hypertension) Prediabetes Sleep apnea Surgical History Surgical History H/O gastric bypass History of cardiac cath History of colonoscopy Hx of cholecystectomy Family History Family History Grandparent Family history of obesity Hypertension Diabetes mellitus Mother Depression Patient's mother is in good health Family history of mental disorder Father Hypertension Patient's father is in good health Family history of alcoholism Cerebrovascular accident Sibling Patient's sister is in good health Patient's brother is in good health Father Cerebrovascular accident Alcoholism Hypertension Heart disease Mother Family history of malignant neoplasm Depression Hypertension Other Family history of cardiovascular disease Social History Social History Smoking stat
== END 2023-08-16 11:12 | disposition home or self-care (01) ==
PROVIDERS: Emergency Provider Nurse Practitioner Family
DX: J30.9 Allergic rhinitis, unspecified (principal); H93.93 Unspecified disorder of ear, bilateral; R35.0 Frequency of micturition; Z87.891 Personal history of nicotine dependence; J45.909 Unspecified asthma, uncomplicated; I25.10 Atherosclerotic heart disease of native coronary artery without angina pectoris; K21.9 Gastro-esophageal reflux disease without esophagitis; I10 Essential (primary) hypertension; R73.03 Prediabetes; Z98.84 Bariatric surgery status; I25.2 Old myocardial infarction; F41.9 Anxiety disorder, unspecified; F32.A Depression, unspecified
CPT/HCPCS: 81003; 99212; G0463

== ENCOUNTER 2023-09-02 13:43 | Emergency (ER) | payer OTHER, SELFPAY ==
[2023-09-02 13:52] VITALS: BP 159/106; PULSE 57; RESP 16; TEMP 36.9; O2SAT 100
--- NOTE | 2023-09-02 13:54 | ED.URI ---
HPI - URI/Sore Throat General Chief Complaint: Dizziness Stated Complaint: right ear discharge,dizzy,head pressure Time Seen by Provider: 09/02/23 13:56 Source: patient, RN notes reviewed and old records reviewed Mode of arrival: ambulatory Limitations: no limitations History of Present Illness HPI Narrative: 53-year-old male who was well known to the clinic presents with right ear drainage, right ear pain, dizziness when leaning forward only. Reports frontal forehead pressure. Denies any blurry vision or change in vision. States that he feels like this when he has vertigo. Had taken a meclizine that he had ?left over. ? States that he has right ear pain currently with sinus pressure. Denies any chest pain or dizziness currently States that he does not take any medications like Sudafed because it makes him very nervous and he does not like taking [id number] medications. His blood pressure is elevated. States that it is elevated when ?I do not feel good. ? Symptoms just started yesterday Requesting flu and COVID testing Onset (ago): day(s) (1) Treatments prior to arrival: other (Left over meclizine) Related Data Home Medications Medication Instructions Recorded Confirmed indapamide 2.5 mg tablet 2.5 mg PO DIRECTED 06/09/23 08/16/23 potassium chloride 10 mEq 10 meq PO DAILY 06/09/23 08/16/23 tablet,extended release prednisolone acetate 1 % eye 1 drp ophthalmic (eye) DIRECTED 06/09/23 08/16/23 drops,suspension meclizine 25 mg tablet 25 mg PO QID 09/02/23 09/02/23 Allergies Allergy/AdvReac Type Severity Reaction Status Date / Time Iodinated Contrast Media Allergy Severe Anaphylaxis Verified 09/02/23 14:01 metformin Allergy Severe Stopped Verified 09/02/23 14:01 Breathing Sulfa (Sulfonamide Allergy Severe Anaphylaxis Verified 09/02/23 14:01 Antibiotics) sulfamethoxazole Allergy Severe Anaphylaxis Verified 09/02/23 14:01 famotidine Allergy Intermediate Hives Verified 09/02/23 14:01 losartan Allergy Intermediate SWLLEING Verified 09/02/23 14:01 LIP AND HIVES nebivolol Allergy Intermediate LIP Verified 09/02/23 14:01 SWELLING Quinolones Allergy Intermediate Nervousness Verified 09/02/23 14:01 valsartan Allergy Intermediate HIVES/SOB Verified 09/02/23 14:01 amlodipine Allergy Mild HIVES Verified 09/02/23 14:01 azithromycin Allergy Mild Nervousness Verified 09/02/23 14:01 spironolactone Allergy Mild RASH AND Verified 09/02/23 14:01 ITCHING trimethoprim Allergy Mild RASH Verified 09/02/23 14:01 cephalexin AdvReac Mild Nervousness Verified 09/02/23 14:01 flavoxate AdvReac Mild Nervousness Verified 09/02/23 14:01 levofloxacin AdvReac Mild Nervousness Verified 09/02/23 14:01 lidocaine AdvReac Mild Nervousness Verified 09/02/23 14:01 lisinopril AdvReac Mild Nervousness Verified 09/02/23 14:01 nitrofurantoin AdvReac Mild Nervousness Verified 09/02/23 14:01 oxycodone AdvReac Mild Nervousness Verified 09/02/23 14:01 paroxetine AdvReac Mild Nervousness Verified 09/02/23 14:01 Review of Systems Review of Systems: All systems reviewed & are unremarkable except as noted in HPI and below Constitutional: Constitutional: Reports no additional constitutional complaints Eyes: Eyes: Reports no additional eye complaints ENT: Reports as per HPI, Reports otalgia (Right) and Reports sinus pressure Cardiovascular: Cardiovascular: Reports no additional cardiovascular complaints, Denies chest pain and Denies dyspnea Respiratory: Respiratory: Reports no additional respiratory complaints, Denies chest congestion, Denies cough and Denies dyspnea Gastrointestinal: Gastrointestinal: Reports no additional gastrointestinal complaints, Denies abdominal pain, Denies nausea and Denies vomiting Musculoskeletal: Musculoskeletal: Reports no additional musculoskeletal complaints Integumentary/Breasts: Skin/Breast: Reports system reviewed and no additional complaints, except as docu Neurologic: Reports as per HPI an
[2023-09-02 14:31] VITALS: BP 178/104
--- NOTE | 2023-09-02 14:54 | PC.NURSE ---
1425 THIS RN GIVING DISCHARGE INSTRUCTIONS TO PT. PT NOW REPORTING SAW CHIROPRACTOR A FEW DAYS AGO AND IS HAVING SOME NECK DISCOMFORT MORE WITH LEANING HEAD FORWARD. THIS RN LEFT ROOM AND ADVISED KALEB JACOBS NP OF PT NEW COMPLAINT.
== END 2023-09-02 14:31 | disposition home or self-care (01) ==
PROVIDERS: Emergency Provider Nurse Practitioner
DX: J32.9 Chronic sinusitis, unspecified (principal); H65.03 Acute serous otitis media, bilateral; I25.10 Atherosclerotic heart disease of native coronary artery without angina pectoris; I10 Essential (primary) hypertension; Z20.822 Contact with and (suspected) exposure to COVID-19; Z87.891 Personal history of nicotine dependence
CPT/HCPCS: 87426; 87804; 99213; C9803; G0463

== ENCOUNTER 2023-09-23 19:37 | Emergency (ER) | payer OTHER, SELFPAY ==
--- NOTE | 2023-09-23 19:39 | ED.URI ---
HPI - URI/Sore Throat General Chief Complaint: Upper Respiratory Infection Stated Complaint: Ear Irritation/Sinus Time Seen by Provider: 09/23/23 19:39 Source: patient Mode of arrival: ambulatory Limitations: no limitations History of Present Illness HPI Narrative: Carlos is a 53-year-old male patient presenting to the clinic today with complaints of ear irritation and sinus congestion times 8 days. He reports no known fever or chills. MD elicited complaint: cough and nasal congestion Related Data Home Medications Medication Instructions Recorded Confirmed indapamide 2.5 mg tablet 2.5 mg PO DIRECTED 06/09/23 09/23/23 potassium chloride 10 mEq 10 meq PO DAILY 06/09/23 09/23/23 tablet,extended release prednisolone acetate 1 % eye 1 drp ophthalmic (eye) DIRECTED 06/09/23 09/23/23 drops,suspension Allergies Allergy/AdvReac Type Severity Reaction Status Date / Time Iodinated Contrast Media Allergy Severe Anaphylaxis Verified 09/23/23 19:39 metformin Allergy Severe Stopped Verified 09/23/23 19:39 Breathing Sulfa (Sulfonamide Allergy Severe Anaphylaxis Verified 09/23/23 19:39 Antibiotics) sulfamethoxazole Allergy Severe Anaphylaxis Verified 09/23/23 19:39 famotidine Allergy Intermediate Hives Verified 09/23/23 19:39 losartan Allergy Intermediate SWLLEING Verified 09/23/23 19:39 LIP AND HIVES nebivolol Allergy Intermediate LIP Verified 09/23/23 19:39 SWELLING Quinolones Allergy Intermediate Nervousness Verified 09/23/23 19:39 valsartan Allergy Intermediate HIVES/SOB Verified 09/23/23 19:39 amlodipine Allergy Mild HIVES Verified 09/23/23 19:39 azithromycin Allergy Mild Nervousness Verified 09/23/23 19:39 spironolactone Allergy Mild RASH AND Verified 09/23/23 19:39 ITCHING trimethoprim Allergy Mild RASH Verified 09/23/23 19:39 cephalexin AdvReac Mild Nervousness Verified 09/23/23 19:39 flavoxate AdvReac Mild Nervousness Verified 09/23/23 19:39 levofloxacin AdvReac Mild Nervousness Verified 09/23/23 19:39 lidocaine AdvReac Mild Nervousness Verified 09/23/23 19:39 lisinopril AdvReac Mild Nervousness Verified 09/23/23 19:39 nitrofurantoin AdvReac Mild Nervousness Verified 09/23/23 19:39 oxycodone AdvReac Mild Nervousness Verified 09/23/23 19:39 paroxetine AdvReac Mild Nervousness Verified 09/23/23 19:39 Review of Systems Review of Systems: Pertinent positives per HPI. Patient denies any fever, chills, rash, headache, visual changes, dizziness, shortness of breath, chest pain, palpitations, nausea, vomiting, diarrhea, constipation, abdominal pain, or any urinary issues. [facility] Past Medical History Medical History Allergic rhinitis Anxiety Asthma CAD (coronary artery disease) history [place] Chronic post-traumatic stress disorder (PTSD) Chronic sinusitis Concussion Depression GERD (gastroesophageal reflux disease) HTN (hypertension) Prediabetes Sleep apnea Surgical History Surgical History H/O gastric bypass History of cardiac cath History of colonoscopy Hx of cholecystectomy Family History Family History Grandparent Family history of obesity Hypertension Diabetes mellitus Mother Depression Patient's mother is in good health Family history of mental disorder Father Hypertension Patient's father is in good health Family history of alcoholism Cerebrovascular accident Sibling Patient's sister is in good health Patient's brother is in good health Father Cerebrovascular accident Alcoholism Hypertension Heart disease Mother Family history of malignant neoplasm Depression Hypertension Other Family history of cardiovascular disease Social History Social History Smoking status: Former smoker Smoking end date: 09/13/95
[2023-09-23 19:46] VITALS: BP 148/93; PULSE 64; RESP 18; TEMP 36.3; O2SAT 97
== END 2023-09-23 20:14 | disposition home or self-care (01) ==
PROVIDERS: Emergency Provider Nurse Practitioner Family
DX: J06.9 Acute upper respiratory infection, unspecified (principal); Z87.891 Personal history of nicotine dependence; J45.909 Unspecified asthma, uncomplicated; I25.10 Atherosclerotic heart disease of native coronary artery without angina pectoris; I25.2 Old myocardial infarction; K21.9 Gastro-esophageal reflux disease without esophagitis; I10 Essential (primary) hypertension; R73.03 Prediabetes; Z98.84 Bariatric surgery status; F41.9 Anxiety disorder, unspecified; F32.A Depression, unspecified
CPT/HCPCS: 87426; 87804; 99213; G0463

== ENCOUNTER 2023-11-01 14:29 | Emergency (ER) | payer OTHER, SELFPAY ==
--- NOTE | 2023-11-01 14:35 | ED.EYEPROB ---
HPI - Eye Problem General Chief complaint: Abdominal Pain Stated complaint: right eye itching, diverticulitis Time Seen by Provider: 11/01/23 15:15 Source: patient and RN notes reviewed Mode of arrival: ambulatory Limitations: no limitations History of Present Illness HPI Narrative: 53-year-old male presents with concern for itching of the skin around his right eye for 3 days. He reports no vision changes, pain in the actual eye. He reports some white discharge around the eye. In a separate complaint he reports he has diverticulitis. He reports he recently took Cipro for urinary tract infection that he finished 3 days ago, his pharmacy history indicates he filled 10 days of Cipro and Flagyl on October 19. He reports he took Mag citrate last night for constipation. MD chief complaint: other (Skin itching) Related Data Home Medications Medication Instructions Recorded Confirmed indapamide 2.5 mg tablet 2.5 mg PO DIRECTED 06/09/23 11/01/23 potassium chloride 10 mEq 10 meq PO DAILY 06/09/23 11/01/23 tablet,extended release prednisolone acetate 1 % eye 1 drp ophthalmic (eye) DIRECTED 06/09/23 11/01/23 drops,suspension Allergies Allergy/AdvReac Type Severity Reaction Status Date / Time Iodinated Contrast Media Allergy Severe Anaphylaxis Verified 11/01/23 14:52 metformin Allergy Severe Stopped Verified 11/01/23 14:52 Breathing Sulfa (Sulfonamide Allergy Severe Anaphylaxis Verified 11/01/23 14:52 Antibiotics) sulfamethoxazole Allergy Severe Anaphylaxis Verified 11/01/23 14:52 famotidine Allergy Intermediate Hives Verified 11/01/23 14:52 losartan Allergy Intermediate SWLLEING Verified 11/01/23 14:52 LIP AND HIVES nebivolol Allergy Intermediate LIP Verified 11/01/23 14:52 SWELLING Quinolones Allergy Intermediate Nervousness Verified 11/01/23 14:52 valsartan Allergy Intermediate HIVES/SOB Verified 11/01/23 14:52 amlodipine Allergy Mild HIVES Verified 11/01/23 14:52 azithromycin Allergy Mild Nervousness Verified 11/01/23 14:52 spironolactone Allergy Mild RASH AND Verified 11/01/23 14:52 ITCHING trimethoprim Allergy Mild RASH Verified 11/01/23 14:52 cephalexin AdvReac Mild Nervousness Verified 11/01/23 14:52 flavoxate AdvReac Mild Nervousness Verified 11/01/23 14:52 levofloxacin AdvReac Mild Nervousness Verified 11/01/23 14:52 lidocaine AdvReac Mild Nervousness Verified 11/01/23 14:52 lisinopril AdvReac Mild Nervousness Verified 11/01/23 14:52 nitrofurantoin AdvReac Mild Nervousness Verified 11/01/23 14:52 oxycodone AdvReac Mild Nervousness Verified 11/01/23 14:52 paroxetine AdvReac Mild Nervousness Verified 11/01/23 14:52 Review of Systems Review of Systems: CONSTITUTIONAL: Denies malaise, chills, sweats, or fever. EYES: Denies visual changes. Reports redness, irritation, discharge. ENT: Denies rhinorrhea, congestion, sinus pain, otalgia or sore throat. SKIN: Denies itching around the right eye NEUROLOGIC: Denies numbness, weakness, or headache. PSYCHIATRIC: Denies anxiety or depression. All systems reviewed & are unremarkable except as noted in HPI and below PMFSH Past Medical History Medical History Allergic rhinitis Anxiety Asthma CAD (coronary artery disease) history [place] Chronic post-traumatic stress disorder (PTSD) Chronic sinusitis Concussion Depression GERD (gastroesophageal reflux disease) HTN (hypertension) Prediabetes Sleep apnea Surgical History Surgical History H/O gastric bypass History of cardiac cath History of colonoscopy Hx of cholecystectomy Family History Family History Grandparent Family history of obesity Hypertension Diabetes mellitus Mother Depression Patient's mother is in good health Family history of mental disorder Father Hypertension Patient's father is in
[2023-11-01 14:50] VITALS: BP 155/88; PULSE 66; RESP 16; TEMP 36.3; O2SAT 100
== END 2023-11-01 15:45 | disposition home or self-care (01) ==
PROVIDERS: Emergency Provider Nurse Practitioner
DX: H01.9 Unspecified inflammation of eyelid (principal); J45.909 Unspecified asthma, uncomplicated; I25.10 Atherosclerotic heart disease of native coronary artery without angina pectoris; I25.2 Old myocardial infarction; K21.9 Gastro-esophageal reflux disease without esophagitis; I10 Essential (primary) hypertension; R73.03 Prediabetes; Z98.84 Bariatric surgery status; F41.9 Anxiety disorder, unspecified; F32.A Depression, unspecified
CPT/HCPCS: 99213; G0463

== ENCOUNTER 2023-11-29 16:11 | Emergency (ER) | payer OTHER, SELFPAY ==
[2023-11-29 16:21] VITALS: BP 166/92; PULSE 63; RESP 16; TEMP 36.6; O2SAT 99
--- NOTE | 2023-11-29 16:25 | ED.GENADULT ---
HPI - General Adult General Chief complaint: Nausea/Vomiting/Diarrhea Stated complaint: med refill acid reflux Time Seen by Provider: 11/29/23 16:40 Source: patient Mode of arrival: ambulatory Limitations: no limitations History of Present Illness HPI narrative: 53-year-old male presents with concern for medication refill. Reports history of acid reflux and he has been out of his medication. Reports he has been out for 1 month and he has been having increased acid reflux. Reports he is currently taking antibiotic and steroid for a sinus infection which has worsened his symptoms Related Data Home Medications Medication Instructions Recorded Confirmed indapamide 2.5 mg tablet 2.5 mg PO DIRECTED 06/09/23 11/29/23 potassium chloride 10 mEq 10 meq PO DAILY 06/09/23 11/29/23 tablet,extended release prednisolone acetate 1 % eye 1 drp ophthalmic (eye) DIRECTED 06/09/23 11/29/23 drops,suspension Allergies Allergy/AdvReac Type Severity Reaction Status Date / Time Iodinated Contrast Media Allergy Severe Anaphylaxis Verified 11/29/23 16:24 metformin Allergy Severe Stopped Verified 11/29/23 16:24 Breathing Sulfa (Sulfonamide Allergy Severe Anaphylaxis Verified 11/29/23 16:24 Antibiotics) sulfamethoxazole Allergy Severe Anaphylaxis Verified 11/29/23 16:24 famotidine Allergy Intermediate Hives Verified 11/29/23 16:24 losartan Allergy Intermediate SWLLEING Verified 11/29/23 16:24 LIP AND HIVES nebivolol Allergy Intermediate LIP Verified 11/29/23 16:24 SWELLING Quinolones Allergy Intermediate Nervousness Verified 11/29/23 16:24 valsartan Allergy Intermediate HIVES/SOB Verified 11/29/23 16:24 amlodipine Allergy Mild HIVES Verified 11/29/23 16:24 azithromycin Allergy Mild Nervousness Verified 11/29/23 16:24 spironolactone Allergy Mild RASH AND Verified 11/29/23 16:24 ITCHING trimethoprim Allergy Mild RASH Verified 11/29/23 16:24 cephalexin AdvReac Mild Nervousness Verified 11/29/23 16:24 flavoxate AdvReac Mild Nervousness Verified 11/29/23 16:24 levofloxacin AdvReac Mild Nervousness Verified 11/29/23 16:24 lidocaine AdvReac Mild Nervousness Verified 11/29/23 16:24 lisinopril AdvReac Mild Nervousness Verified 11/29/23 16:24 nitrofurantoin AdvReac Mild Nervousness Verified 11/29/23 16:24 oxycodone AdvReac Mild Nervousness Verified 11/29/23 16:24 paroxetine AdvReac Mild Nervousness Verified 11/29/23 16:24 Review of Systems Review of Systems: CONSTITUTIONAL: Denies malaise, chills, sweats, or fever. CARDIOVASCULAR: Denies chest pain, palpitations, or edema. RESPIRATORY: Denies cough or dyspnea. GASTROINTESTINAL: Denies abdominal pain, nausea, vomiting, diarrhea, bloody, or mucous stools. Reports heartburn and bloating All systems reviewed & are unremarkable except as noted in HPI and below PMFSH Past Medical History Medical History Allergic rhinitis Anxiety Asthma CAD (coronary artery disease) history [place] Chronic post-traumatic stress disorder (PTSD) Chronic sinusitis Concussion Depression GERD (gastroesophageal reflux disease) HTN (hypertension) Prediabetes Sleep apnea Surgical History Surgical History H/O gastric bypass History of cardiac cath History of colonoscopy Hx of cholecystectomy Family History Family History Grandparent Family history of obesity Hypertension Diabetes mellitus Mother Depression Patient's mother is in good health Family history of mental disorder Father Hypertension Patient's father is in good health Family history of alcoholism Cerebrovascular accident Sibling Patient's sister is in good health Patient's brother is in good health Father Cerebrovascular accident Alcoholism Hypertension Heart disease Mother Family history of malignant neoplasm Depress
== END 2023-11-29 17:01 | disposition home or self-care (01) ==
PROVIDERS: Emergency Provider Nurse Practitioner
DX: K21.9 Gastro-esophageal reflux disease without esophagitis (principal); Z87.891 Personal history of nicotine dependence; J45.909 Unspecified asthma, uncomplicated; I25.10 Atherosclerotic heart disease of native coronary artery without angina pectoris; I25.2 Old myocardial infarction; I10 Essential (primary) hypertension; R73.03 Prediabetes; Z98.84 Bariatric surgery status
CPT/HCPCS: 99211; G0463

== ENCOUNTER 2023-12-14 14:12 | Emergency (ER) | payer OTHER, SELFPAY ==
--- NOTE | 2023-12-14 14:15 | ED.URI ---
HPI - URI/Sore Throat General Chief Complaint: Upper Respiratory Infection Stated Complaint: sinus infection right ear fluid feeling Time Seen by Provider: 12/14/23 14:26 Source: patient, RN notes reviewed and old records reviewed Mode of arrival: ambulatory Limitations: no limitations History of Present Illness HPI Narrative: 53-year-old male presents to the [facility] with concerns for a sinus infection and fluid in the right ear. Patient with chronic sinus issues. Patient reports that he has sporadically been taking amoxicillin 875 for the last 3 weeks that was prescribed by his eye doctor Related Data Home Medications Medication Instructions Recorded Confirmed indapamide 2.5 mg tablet 2.5 mg PO DIRECTED 06/09/23 12/14/23 potassium chloride 10 mEq 10 meq PO DAILY 06/09/23 12/14/23 tablet,extended release prednisolone acetate 1 % eye 1 drp ophthalmic (eye) DIRECTED 06/09/23 12/14/23 drops,suspension Allergies Allergy/AdvReac Type Severity Reaction Status Date / Time Iodinated Contrast Media Allergy Severe Anaphylaxis Verified 12/14/23 14:19 metformin Allergy Severe Stopped Verified 12/14/23 14:19 Breathing Sulfa (Sulfonamide Allergy Severe Anaphylaxis Verified 12/14/23 14:19 Antibiotics) sulfamethoxazole Allergy Severe Anaphylaxis Verified 12/14/23 14:19 famotidine Allergy Intermediate Hives Verified 12/14/23 14:19 losartan Allergy Intermediate SWLLEING Verified 12/14/23 14:19 LIP AND HIVES nebivolol Allergy Intermediate LIP Verified 12/14/23 14:19 SWELLING Quinolones Allergy Intermediate Nervousness Verified 12/14/23 14:19 valsartan Allergy Intermediate HIVES/SOB Verified 12/14/23 14:19 amlodipine Allergy Mild HIVES Verified 12/14/23 14:19 azithromycin Allergy Mild Nervousness Verified 12/14/23 14:19 spironolactone Allergy Mild RASH AND Verified 12/14/23 14:19 ITCHING trimethoprim Allergy Mild RASH Verified 12/14/23 14:19 cephalexin AdvReac Mild Nervousness Verified 12/14/23 14:19 flavoxate AdvReac Mild Nervousness Verified 12/14/23 14:19 levofloxacin AdvReac Mild Nervousness Verified 12/14/23 14:19 lidocaine AdvReac Mild Nervousness Verified 12/14/23 14:19 lisinopril AdvReac Mild Nervousness Verified 12/14/23 14:19 nitrofurantoin AdvReac Mild Nervousness Verified 12/14/23 14:19 oxycodone AdvReac Mild Nervousness Verified 12/14/23 14:19 paroxetine AdvReac Mild Nervousness Verified 12/14/23 14:19 Review of Systems Review of Systems: All systems reviewed & are unremarkable except as noted in HPI and below Constitutional: Constitutional: Reports no additional constitutional complaints Eyes: Eyes: Reports no additional eye complaints ENT: Reports as per HPI Cardiovascular: Cardiovascular: Reports no additional cardiovascular complaints, Denies chest pain and Denies dyspnea Respiratory: Respiratory: Reports no additional respiratory complaints, Denies chest congestion, Denies cough and Denies dyspnea Gastrointestinal: Gastrointestinal: Reports no additional gastrointestinal complaints, Denies abdominal pain, Denies nausea and Denies vomiting Musculoskeletal: Musculoskeletal: Reports no additional musculoskeletal complaints Integumentary/Breasts: Skin/Breast: Reports system reviewed and no additional complaints, except as docu Neurologic: Reports system reviewed and no additional complaints, except as documented Psychiatric: Psychiatric: Reports no additional psychiatric complaints Allergic/Immunologic: Allergic/Immunologic: Reports no additional allergic/immunologic complaints [facility] Past Medical History Medical History Allergic rhinitis Anxiety Asthma CAD (coronary artery disease) history [place] Chronic post-traumatic stress disorder (PTSD) Chronic sinusitis Concussion Depression GERD (gastroesophageal reflux disease) HTN (hypertension) Prediabetes Sleep apnea Surgical History Surgical History (Reviewed
[2023-12-14 14:26] VITALS: BP 145/77; PULSE 60; RESP 16; TEMP 35.6; O2SAT 97
== END 2023-12-14 14:56 | disposition home or self-care (01) ==
PROVIDERS: Emergency Provider Nurse Practitioner
DX: H65.04 Acute serous otitis media, recurrent, right ear (principal); J32.9 Chronic sinusitis, unspecified; Z20.822 Contact with and (suspected) exposure to COVID-19; Z87.891 Personal history of nicotine dependence; J45.909 Unspecified asthma, uncomplicated; I25.10 Atherosclerotic heart disease of native coronary artery without angina pectoris; I25.2 Old myocardial infarction; K21.9 Gastro-esophageal reflux disease without esophagitis; I10 Essential (primary) hypertension; R73.03 Prediabetes; Z98.84 Bariatric surgery status
CPT/HCPCS: 87426; 87804; 99213; G0463

== ENCOUNTER 2024-02-18 18:52 | Emergency (ER) | payer OTHER, SELFPAY ==
--- NOTE | 2024-02-18 18:55 | ED.URI ---
HPI - URI/Sore Throat General Chief Complaint: Upper Respiratory Infection Stated Complaint: Sinus Problems and Vertigo Time Seen by Provider: 02/18/24 19:12 Source: patient and RN notes reviewed Mode of arrival: ambulatory Limitations: no limitations History of Present Illness HPI Narrative: 54-year-old male presents with concern for one-week history of sinus congestion, drainage, pain, vertigo. He reports he has been taking Sudafed, antihistamines, Tylenol, meclizine without relief. He took leftover of Augmentin instead that it triggered his diverticulitis MD elicited complaint: nasal congestion Related Data Home Medications Medication Instructions Recorded Confirmed indapamide 2.5 mg tablet 2.5 mg PO DIRECTED 06/09/23 02/18/24 potassium chloride 10 mEq 10 meq PO DAILY 06/09/23 02/18/24 tablet,extended release Allergies Allergy/AdvReac Type Severity Reaction Status Date / Time Iodinated Contrast Media Allergy Severe Anaphylaxis Verified 02/18/24 18:54 metformin Allergy Severe Stopped Verified 02/18/24 18:54 Breathing Sulfa (Sulfonamide Allergy Severe Anaphylaxis Verified 02/18/24 18:54 Antibiotics) sulfamethoxazole Allergy Severe Anaphylaxis Verified 02/18/24 18:54 famotidine Allergy Intermediate Hives Verified 02/18/24 18:54 losartan Allergy Intermediate SWLLEING Verified 02/18/24 18:54 LIP AND HIVES nebivolol Allergy Intermediate LIP Verified 02/18/24 18:54 SWELLING Quinolones Allergy Intermediate Nervousness Verified 02/18/24 18:54 valsartan Allergy Intermediate HIVES/SOB Verified 02/18/24 18:54 amlodipine Allergy Mild HIVES Verified 02/18/24 18:54 azithromycin Allergy Mild Nervousness Verified 02/18/24 18:54 spironolactone Allergy Mild RASH AND Verified 02/18/24 18:54 ITCHING trimethoprim Allergy Mild RASH Verified 02/18/24 18:54 cephalexin AdvReac Mild Nervousness Verified 02/18/24 18:54 flavoxate AdvReac Mild Nervousness Verified 02/18/24 18:54 levofloxacin AdvReac Mild Nervousness Verified 02/18/24 18:54 lidocaine AdvReac Mild Nervousness Verified 02/18/24 18:54 lisinopril AdvReac Mild Nervousness Verified 02/18/24 18:54 nitrofurantoin AdvReac Mild Nervousness Verified 02/18/24 18:54 oxycodone AdvReac Mild Nervousness Verified 02/18/24 18:54 paroxetine AdvReac Mild Nervousness Verified 02/18/24 18:54 Review of Systems Review of Systems: CONSTITUTIONAL: Denies malaise, chills, sweats, or fever. EYES: Denies visual changes, redness, or discharge. ENT: Reports rhinorrhea, congestion, sinus pain, otalgia CARDIOVASCULAR: Denies chest pain, palpitations, or edema. RESPIRATORY: Denies cough. Denies dyspnea. GASTROINTESTINAL: Denies abdominal pain, nausea, vomiting, diarrhea. Reports abdominal cramping SKIN: Denies rash or itching. MUSCULOSKELETAL: Denies myalgia. NEUROLOGIC: Denies headache. Reports vertigo All systems reviewed & are unremarkable except as noted in HPI and below PMFSH Past Medical History Medical History Allergic rhinitis Anxiety Asthma CAD (coronary artery disease) history [place] Chronic post-traumatic stress disorder (PTSD) Chronic sinusitis Concussion Depression GERD (gastroesophageal reflux disease) HTN (hypertension) Prediabetes Sleep apnea Surgical History Surgical History H/O gastric bypass History of cardiac cath History of colonoscopy Hx of cholecystectomy Family History Family History Grandparent Family history of obesity Hypertension Diabetes mellitus Mother Depression Patient's mother is in good health Family history of mental disorder Father Hypertension Patient's father is in good health Family history of alcoholism Cerebrovascular accident Sibling Patient's sister is in good health Patient's brother is in good health Father Cerebrovascular accide
[2024-02-18 19:04] VITALS: BP 157/94; PULSE 71; RESP 20; TEMP 36.2; O2SAT 100
== END 2024-02-18 19:36 | disposition home or self-care (01) ==
PROVIDERS: Emergency Provider Nurse Practitioner
DX: J32.9 Chronic sinusitis, unspecified (principal); Z87.891 Personal history of nicotine dependence; I25.10 Atherosclerotic heart disease of native coronary artery without angina pectoris; I25.2 Old myocardial infarction; K21.9 Gastro-esophageal reflux disease without esophagitis; I10 Essential (primary) hypertension; R73.03 Prediabetes; Z98.84 Bariatric surgery status; J45.909 Unspecified asthma, uncomplicated
CPT/HCPCS: 99213; G0463

== ENCOUNTER 2024-02-24 21:08 | Emergency (ER) | payer OTHER, SELFPAY ==
[2024-02-24] VITALS (7 sets, daily range): BP systolic 115–149; BP diastolic 65–91; PULSE 59–64; RESP 13–24; TEMP 36.2; O2SAT 97–99
--- NOTE | ~2024-02-24 | CT_ITS ---
Non-contrast Head CT History: Dizziness COMPARISON: 12/22/2022 Technique: Axial non-contrast imaging of the brain was performed. Dose reduction technique was used on this scan by utilizing automated exposure control and iterative reconstruction technique. The dose -length product (DLP) was 605.33 mGy-cm. Findings: There is no evidence of intracranial hemorrhage, mass lesion, or acute infarct. Brain par enchyma appears normal. The ventricles and subarachnoid spaces are normal in size. The calvarium ap pears normal. The visualized paranasal sinuses and mastoid air cells are clear. Impression: No significant abnormality seen. Reviewed, dictated and finalized at location . Impression: No significant abnormality seen.
--- NOTE | ~2024-02-24 | CT_ITS ---
Non-contrast CT scan of the Abdomen and Pelvis Clinical indication: Abdominal pain Technique: 2.5 mm axial scans were obtained through the abdomen and pelvis without intravenous or or al contrast. Dose reduction technique was used on this scan by utilizing automated exposure control a nd iterative reconstruction technique. The dose-length product (DLP) was 1315.76 mGy-cm. COMPARISON: 03/22/2023 Findings: Images through the lung bases reveal no abnormalities. Small bilateral nonobstructing renal stones are present, measuring about 3 mm in maximum diameter. No ureteral stone or hydronephrosis on either side. The liver, spleen, pancreas, and right adrenal gland appear normal. Left adrenal lipoma present. Chol ecystectomy clips are present. There is no aortic aneurysm. There is a 7.4 cm length of proximal to mid sigmoid colon with apparent circumferential wall thickeni ng and luminal narrowing (axial image 151, coronal image 62), with distention of the large bowel just proximal which is filled with stool. Small bowel is nondistended. No abscess or free air. No signifi cant inflammatory change present. Images through the pelvis were performed. There is no evidence of ascites or lymphadenopathy. Urinary bladder unremarkable. No pelvic mass seen. No ascites. Bilateral fat-containing inguinal hernias are present, right larger than left. Impression: Findings suspicious for colonic adenocarcinoma at the sigmoid colon measuring approximately 7.4 cm in length, as detailed above, with relative distention of the immediately upstream descending colon and proximal sigmoid colon, which are filled with stool. Infectious/inflammatory colitis or benign stric ture would be alternative, though less likely considerations. Small bilateral nonobstructing renal stones. Reviewed, dictated and finalized at [facility]. Impression: Findings suspicious for colonic adenocarcinoma at the sigmoid colon measuring a pproximately 7.4 cm in length, as detailed above, with relative distention of t he immediately upstream descending colon and proximal sigmoid colon, which are filled with stool. Infectious/inflammatory colitis or benign stricture would be alternative, though less likely considerations. Small bilateral nonobstructing renal stones.
--- NOTE | 2024-02-24 21:10 | ECG_ITS ---
Test Date: 2024-02-24 21:14:31 Measurements Intervals [place] Rate: 61 P: 25 IN: 142 QRS: 24 QRSD: 106 T: 28 QT: 325 QTc: 328 Interpretive Statements SINUS RHYTHM NONSPECIFIC T-WAVE ABNORMALITY ABNORMAL ECG No previous ECG available for comparison Electronically Signed On 02-25-2024 07:13:01 CDT by Balta Pineda M.D.
[2024-02-24 23:27] LABS: Basophils Percent Auto 0.5 % (0.2-1.2); Eosinophils Absolute Auto 0.1 K/mm3 (0-0.3); Eosinophils Percent Auto 1.9 % (0-4.4); Hematocrit 39.8 % (42.0-52.0); Hemoglobin 11.9 g/dL (14.0-18.0); Immature Granulocyte Absolute 0.02 K/mm3 (0.00-0.031); Immature Granulocyte Percent A 0.3 % (0-0.5); Lymphocytes Absolute Auto 1.51 K/mm3 (0.9-3.2); Lymphocytes Percent Auto 23.7 % (18.3-44.2); Mean Corpuscular HGB Conc 29.9 g/dl (32-36); Mean Corpuscular Hemoglobin 19.9 pg (26-34); Mean Corpuscular Volume 66.4 fl (80-100); Mean Platelet Volume 9.5 fl (7.4-10.4); Monocytes Absolute Auto 0.3 K/mm3 (0.1-0.6); Monocytes Percent Auto 5.2 % (2.6-8.5); Neutrophils Absolute Auto 4.4 K/mm3 (1.3-6.7); Neutrophils Percent Auto 68.4 % (45.5-73.1); Platelet Count Result 188 k/mm3 (150-375); Red Blood Count 5.99 M/mm3 (4.6-6.20); Red Cell Distribution Width 18.6 % (11.5-14.5); White Blood Count 6.4 K/mm3 (4.5-10.0)
[2024-02-24 23:39] LABS: Magnesium 1.8 mg/dL (1.6-2.3)
[2024-02-24 23:52] LABS: Alanine Aminotransferase 55 U/L (6-50); Albumin Level 4.3 g/dL (3.5-5.1); Alkaline Phosphatase 70 U/L (38-126); Anion Gap 8 mmol/L (4-12); Aspartate Amino Transferase 51 U/L (17-59); Bilirubin,Total 2.1 mg/dL (0.2-1.3); Blood Urea Nitrogen 14 mg/dL (9-20); Calcium 8.9 mg/dL (8.4-10.2); Carbon Dioxide 32 mmol/L (22-30); Chloride 100 mmol/L (98-107); Estimated CRCL calculation 89 ml/min; Estimated Glomerular Filt Rate > 60; Glucose 127 mg/dL (65-110); Potassium 3.1 mmol/L (3.4-5.0); Sodium 140 mmol/L (137-145)
[2024-02-24 23:56] LABS: Anisocytosis 1+; Ovalocytes 1+; Platelet Estimate Adequate (Adequate)
[2024-02-24 23:57] LABS: Schistocytes None Seen
[2024-02-25 00:01] VITALS: BP 127/70; PULSE 64; RESP 9; O2SAT 99
[2024-02-25] MEDS: SODIUM CHLORIDE 0.9% IV 500 ML 999 ML IV CONT (00:38)
[2024-02-25] MEDS: POTASSIUM CHLORIDE 20 MEQ PACKET (FOR LIQUID) 40 MEQ PO (00:38)
--- NOTE | 2024-02-25 01:00 | ED.DIZZY ---
HPI - Dizziness General Chief Complaint: Dizziness Stated Complaint: dizzy Time Seen by Provider: 02/24/24 23:37 Source: patient Mode of arrival: ambulatory Limitations: no limitations History of Present Illness HPI Narrative: This is a 54 year old male that presents to the ER for dizziness. Ongoing over the last week. Reports intermittent episodes of room spinning dizziness. Reports difficulty ambulating when this happens. Also reports associated blurry vision. Reports he has had trouble with vertigo in the past. Believes may be due to his chronic sinus problems. He has been taking Meclizine with little relief. He was seen at urgent care last week and started on Sudafed and Amoxicillin. He believes this has caused a diverticulitis flare. Reports he has been experiencing pain in his left lower abdomen. He does have a known colonic mass for which he needs a colonoscopy. Denies fever, vomiting, focal numbness or weakness. Related Data Home Medications Medication Instructions Recorded Confirmed indapamide 2.5 mg tablet 2.5 mg PO DIRECTED 06/09/23 02/18/24 potassium chloride 10 mEq 10 meq PO DAILY 06/09/23 02/18/24 tablet,extended release Allergies Allergy/AdvReac Type Severity Reaction Status Date / Time Iodinated Contrast Media Allergy Severe Anaphylaxis Verified 02/18/24 18:54 metformin Allergy Severe Stopped Verified 02/18/24 18:54 Breathing Sulfa (Sulfonamide Allergy Severe Anaphylaxis Verified 02/18/24 18:54 Antibiotics) sulfamethoxazole Allergy Severe Anaphylaxis Verified 02/18/24 18:54 famotidine Allergy Intermediate Hives Verified 02/18/24 18:54 losartan Allergy Intermediate SWLLEING Verified 02/18/24 18:54 LIP AND HIVES nebivolol Allergy Intermediate LIP Verified 02/18/24 18:54 SWELLING Quinolones Allergy Intermediate Nervousness Verified 02/18/24 18:54 valsartan Allergy Intermediate HIVES/SOB Verified 02/18/24 18:54 amlodipine Allergy Mild HIVES Verified 02/18/24 18:54 azithromycin Allergy Mild Nervousness Verified 02/18/24 18:54 spironolactone Allergy Mild RASH AND Verified 02/18/24 18:54 ITCHING trimethoprim Allergy Mild RASH Verified 02/18/24 18:54 cephalexin AdvReac Mild Nervousness Verified 02/18/24 18:54 flavoxate AdvReac Mild Nervousness Verified 02/18/24 18:54 levofloxacin AdvReac Mild Nervousness Verified 02/18/24 18:54 lidocaine AdvReac Mild Nervousness Verified 02/18/24 18:54 lisinopril AdvReac Mild Nervousness Verified 02/18/24 18:54 nitrofurantoin AdvReac Mild Nervousness Verified 02/18/24 18:54 oxycodone AdvReac Mild Nervousness Verified 02/18/24 18:54 paroxetine AdvReac Mild Nervousness Verified 02/18/24 18:54 Review of Systems Review of Systems: CONSTITUTIONAL: Denies fever EYES: Reports visual changes CARDIOVASCULAR: Denies chest pain, palpitations, or edema. RESPIRATORY: Reports dyspnea. GASTROINTESTINAL: Reports abdominal pain. Denies vomiting NEUROLOGIC: Reports headache. Denies numbness, or weakness. All systems reviewed & are unremarkable except as noted in HPI and below PMFSH Past Medical History Medical History Allergic rhinitis Anxiety Asthma CAD (coronary artery disease) history [place] Chronic post-traumatic stress disorder (PTSD) Chronic sinusitis Concussion Depression GERD (gastroesophageal reflux disease) HTN (hypertension) Prediabetes Sleep apnea Surgical History Surgical History H/O gastric bypass History of cardiac cath History of colonoscopy Hx of cholecystectomy Family History Family History Grandparent Family history of obesity Hypertension Diabetes mellitus Mother Depression Patient's mother is in good health Family history of mental disorder Father Hypertension Patient's father is in good health Family history of alcoholism Cerebrovascular accident Sib
[2024-02-25 01:08] LABS: Lipase 109 U/L (23-300)
[2024-02-25 01:55] LABS: Appearance Urine Clear (Clear); Bilirubin Urine Negative (Negative); Blood Urine Negative (Negative); Color Urine Yellow (Yellow); Glucose Urine UA Negative (Negative); Ketones Urine Negative (Negative); Leukocyte Esterase Ur Negative LEU/UL (Negative); Nitrate Urine Negative (Negative); Protein Urine Negative (Negative); Specific Grav Ur 1.014 (1.001-1.035)
[2024-02-25 01:59] LABS: Add Urine Microscopic? NO
[2024-02-25 02:40] VITALS: BP 126/76; PULSE 66; RESP 21; O2SAT 97
== END 2024-02-25 03:16 | disposition home or self-care (01) ==
PROVIDERS: Emergency Medicine; Emergency Provider Physician Assistant
DX: R42 Dizziness and giddiness (principal); K52.9 Noninfective gastroenteritis and colitis, unspecified; E87.6 Hypokalemia; F41.8 Other specified anxiety disorders; I25.10 Atherosclerotic heart disease of native coronary artery without angina pectoris; K21.9 Gastro-esophageal reflux disease without esophagitis; I10 Essential (primary) hypertension; Z87.891 Personal history of nicotine dependence
CPT/HCPCS: 36415; 70450; 74176; 80053; 81003; 83690; 83735; 85025; 93005; 99284; A9270; J7040

== ENCOUNTER 2024-03-14 08:52 | Emergency (ER) | payer OTHER, SELFPAY ==
[2024-03-14 09:03] VITALS: BP 167/80; PULSE 79; RESP 16; TEMP 37.2; O2SAT 99
--- NOTE | 2024-03-14 09:06 | ED.GENADULT ---
HPI - General Adult General Chief complaint: Unspecified Stated complaint: Blood Pressure,Acid Reflux,Colitis Time Seen by Provider: 03/14/24 09:45 Source: patient Mode of arrival: ambulatory Limitations: no limitations History of Present Illness HPI narrative: 54 year old male presents with concern for medication refill. He reports he is scheduled to use new primary care doctor on March 29 but is out of his blood pressure medication and his omeprazole. Patient is also complaining of abdominal discomfort and is requesting additional Flagyl and Cipro for ?diverticulitis?. Patient was seen in the ER in the middle of February and was referred to GI for colon mass. Patient reports he has an appointment with GI in April but is requesting more antibiotics until he can see GI. MD complaint: Medication refill Related Data Home Medications Medication Instructions Recorded Confirmed indapamide 2.5 mg tablet 2.5 mg PO DIRECTED 06/09/23 02/18/24 potassium chloride 10 mEq 10 meq PO DAILY 06/09/23 02/18/24 tablet,extended release Allergies Allergy/AdvReac Type Severity Reaction Status Date / Time Iodinated Contrast Media Allergy Severe Anaphylaxis Verified 03/14/24 10:25 metformin Allergy Severe Stopped Verified 03/14/24 10:25 Breathing Sulfa (Sulfonamide Allergy Severe Anaphylaxis Verified 03/14/24 10:25 Antibiotics) sulfamethoxazole Allergy Severe Anaphylaxis Verified 03/14/24 10:25 famotidine Allergy Intermediate Hives Verified 03/14/24 10:25 losartan Allergy Intermediate SWLLEING Verified 03/14/24 10:25 LIP AND HIVES nebivolol Allergy Intermediate LIP Verified 03/14/24 10:25 SWELLING Quinolones Allergy Intermediate Nervousness Verified 03/14/24 10:25 valsartan Allergy Intermediate HIVES/SOB Verified 03/14/24 10:25 amlodipine Allergy Mild HIVES Verified 03/14/24 10:25 azithromycin Allergy Mild Nervousness Verified 03/14/24 10:25 spironolactone Allergy Mild RASH AND Verified 03/14/24 10:25 ITCHING trimethoprim Allergy Mild RASH Verified 03/14/24 10:25 cephalexin AdvReac Mild Nervousness Verified 03/14/24 10:25 flavoxate AdvReac Mild Nervousness Verified 03/14/24 10:25 levofloxacin AdvReac Mild Nervousness Verified 03/14/24 10:25 lidocaine AdvReac Mild Nervousness Verified 03/14/24 10:25 lisinopril AdvReac Mild Nervousness Verified 03/14/24 10:25 nitrofurantoin AdvReac Mild Nervousness Verified 03/14/24 10:25 oxycodone AdvReac Mild Nervousness Verified 03/14/24 10:25 paroxetine AdvReac Mild Nervousness Verified 03/14/24 10:25 Review of Systems Review of Systems: CONSTITUTIONAL: Denies malaise, chills, sweats, or fever. GASTROINTESTINAL: Reports bloating, lower abdominal discomfort NEUROLOGIC: Denies numbness, weakness, or headache. PSYCHIATRIC: Reports anxiety All systems reviewed & are unremarkable except as noted in HPI and below PMFSH Past Medical History Medical History Allergic rhinitis Anxiety Asthma CAD (coronary artery disease) history [place] Chronic post-traumatic stress disorder (PTSD) Chronic sinusitis Concussion Depression GERD (gastroesophageal reflux disease) HTN (hypertension) Prediabetes Sleep apnea Surgical History Surgical History H/O gastric bypass History of cardiac cath History of colonoscopy Hx of cholecystectomy Family History Family History Grandparent Family history of obesity Hypertension Diabetes mellitus Mother Depression Patient's mother is in good health Family history of mental disorder Father Hypertension Patient's father is in good health Family history of alcoholism Cerebrovascular accident Sibling Patient's sister is in good health Patient's brother is in good health Father Cerebrovascular accident Alcoholism Hypertension Heart disease Mother Family hist
== END 2024-03-14 10:25 | disposition home or self-care (01) ==
PROVIDERS: Emergency Provider Nurse Practitioner; PCP Family Medicine Adolescent Medicine
DX: I10 Essential (primary) hypertension (principal); K21.9 Gastro-esophageal reflux disease without esophagitis; J45.909 Unspecified asthma, uncomplicated; I25.10 Atherosclerotic heart disease of native coronary artery without angina pectoris; R73.03 Prediabetes; I25.2 Old myocardial infarction; Z98.84 Bariatric surgery status
CPT/HCPCS: 99211; G0463

== ENCOUNTER 2024-03-26 22:06 | Emergency (ER) | payer OTHER, SELFPAY ==
--- NOTE | ~2024-03-26 | XR_ITS ---
Clinical Indication: Chest pain PA and lateral views of the chest: Comparison: 03/22/2023 Findings: The lungs are clear, without evidence of focal consolidation or pleural effusion. Cardiome diastinal silhouette is within normal limits. Bones and soft tissues are unremarkable. Impression: Normal chest. Reviewed, dictated and finalized at location . Impression: Normal chest.
--- NOTE | ~2024-03-26 | CT_ITS ---
Non-contrast CT scan of the Abdomen and Pelvis Clinical indication: Left lower quadrant pain Technique: 2.5 mm axial scans were obtained through the abdomen and pelvis without intravenous or or al contrast. Dose reduction technique was used on this scan by utilizing automated exposure control a nd iterative reconstruction technique. The dose-length product (DLP) was 1331.52 mGy-cm. COMPARISON: 02/25/2024 Findings: Images through the lung bases reveal no abnormalities. Small bilateral nonobstructing renal stones are present, measuring up to 2 and 3 mm in size. No urete ral stone or hydronephrosis on either side. The liver, spleen, pancreas, and right adrenal gland appear normal. Left adrenal lipoma present. Chol ecystectomy clips are present. There is no aortic aneurysm. There is again identified is circumferential wall thickening at the mid sigmoid colon, with luminal n arrowing and upstream distention of the proximal sigmoid colon and descending colon which are filled with enlargement of stool. Appearance is essentially stable from prior exam. This is best seen on axi al image [id number]. Small bowel is unremarkable. Images through the pelvis were performed. There is no evidence of ascites or lymphadenopathy. Urinary bladder unremarkable. No pelvic mass seen. There are fat-containing bilateral inguinal hernias. Impression: Stable appearance of circumferential wall thickening of the sigmoid colon with luminal narrowing and upstream probable partial large bowel obstruction appearance. Diagnostic considerations again include colonic adenocarcinoma versus possibility of benign stricture and/or infectious/inflammatory colitis . Small bilateral nonobstructing renal stones. Reviewed, dictated and finalized at [facility]. Impression: Stable appearance of circumferential wall thickening of the sigmoid colon with luminal narrowing and upstream probable partial large bowel obstruction appeara nce. Diagnostic considerations again include colonic adenocarcinoma versus poss ibility of benign stricture and/or infectious/inflammatory colitis. Small bilateral nonobstructing renal stones.
--- NOTE | 2024-03-26 22:07 | ECG_ITS ---
Test Date: 2024-03-26 22:25:01 Measurements Intervals [place] Rate: 64 P: -2 UT: 156 QRS: 17 QRSD: 94 T: -1 QT: 306 QTc: 317 Interpretive Statements SINUS RHYTHM DELAYED PRECORDIAL R/S TRANSITION NONSPECIFIC ST-T WAVE ABNORMALITY- INFERIOR LEADS BASELINE ARTIFACT- I, II, AVR, V4-V6 BORDERLINE ECG Compared to ECG 02/24/2024 21:14:31 No significant changes Electronically Signed On 03-27-2024 08:29:40 CDT by Yonathan Ross D.O.
[2024-03-26 22:09] VITALS: BP 166/84; PULSE 67; RESP 20; TEMP 36.4; O2SAT 100
[2024-03-26 22:24] LABS: Basophils Percent Auto 0.8 % (0.2-1.2); Eosinophils Absolute Auto 0.1 K/mm3 (0-0.3); Eosinophils Percent Auto 2.1 % (0-4.4); Hematocrit 38.5 % (42.0-52.0); Hemoglobin 11.5 g/dL (14.0-18.0); Immature Granulocyte Absolute 0.01 K/mm3 (0.00-0.031); Immature Granulocyte Percent A 0.2 % (0-0.5); Lymphocytes Absolute Auto 1.18 K/mm3 (0.9-3.2); Lymphocytes Percent Auto 22.7 % (18.3-44.2); Mean Corpuscular HGB Conc 29.9 g/dl (32-36); Mean Corpuscular Volume 67.1 fl (80-100); Mean Platelet Volume 8.9 fl (7.4-10.4); Monocytes Absolute Auto 0.2 K/mm3 (0.1-0.6); Monocytes Percent Auto 4.4 % (2.6-8.5); Neutrophils Absolute Auto 3.6 K/mm3 (1.3-6.7); Neutrophils Percent Auto 69.8 % (45.5-73.1); Platelet Count Result 177 k/mm3 (150-375); Red Blood Count 5.74 M/mm3 (4.6-6.20); Red Cell Distribution Width 18.9 % (11.5-14.5); White Blood Count 5.2 K/mm3 (4.5-10.0)
[2024-03-26 22:34] LABS: Alanine Aminotransferase 57 U/L (6-50); Albumin Level 4.7 g/dL (3.5-5.1); Alkaline Phosphatase 73 U/L (38-126); Anion Gap 13 mmol/L (4-12); Aspartate Amino Transferase 59 U/L (17-59); Bilirubin,Total 1.3 mg/dL (0.2-1.3); Blood Urea Nitrogen 7 mg/dL (9-20); Calcium 9.1 mg/dL (8.4-10.2); Carbon Dioxide 27 mmol/L (22-30); Chloride 100 mmol/L (98-107); Estimated CRCL calculation 109 ml/min; Estimated Glomerular Filt Rate > 60; Glucose 175 mg/dL (65-110); Lipase 90 U/L (23-300); Potassium 3.4 mmol/L (3.4-5.0); Sodium 140 mmol/L (137-145)
[2024-03-26 22:39] LABS: INR 1.1; Prothrombin Time 14.2 Seconds (11.1-14.7)
[2024-03-26 22:40] LABS: Partial Thromboplastin Time 40.1 Seconds (22.3-36.8)
[2024-03-26 22:46] LABS: Platelet Estimate Adequate (Adequate); Troponin I < 0.012 ng/mL (0.000-0.034)
[2024-03-26 22:47] LABS: Anisocytosis 1+; Hypochromasia 1+; Microcytosis 1+ (NORMAL); Ovalocytes 1+
[2024-03-26 22:48] LABS: Schistocytes None Seen
[2024-03-27 00:09] VITALS: PULSE 65; O2SAT 100
[2024-03-27 00:10] VITALS: O2SAT 100
[2024-03-27 00:21] VITALS: BP 143/82; PULSE 62; RESP 13; O2SAT 98
--- NOTE | 2024-03-27 01:04 | ECG_ITS ---
Test Date: 2024-03-27 01:29:01 Measurements Intervals [place] Rate: 61 P: 0 SD: 167 QRS: 20 QRSD: 98 T: 3 QT: 397 QTc: 403 Interpretive Statements SINUS RHYTHM BASELINE ARTIFACT- I, II, AVR, AVL NORMAL ECG Compared to ECG 03/26/2024 22:25:01 No significant changes Electronically Signed On 03-27-2024 08:32:58 CDT by Yonathan Ross D.O.
--- NOTE | 2024-03-27 01:27 | ED.CHESTPAIN ---
HPI - Chest Pain General Chief Complaint: Chest Pain Stated Complaint: chest pain Time Seen by Provider: 03/27/24 01:09 History of Present Illness HPI narrative: 54-year-old male presenting to the emergency department for evaluation epigastric pain and left lower quadrant pain. Patient states he does have a known left lower quadrant mass but also suspects he has a current case of diverticulitis. Patient also states he has had some intermittent chest pain with this. Patient denies any current chest pain. Related Data Home Medications Medication Instructions Recorded Confirmed indapamide 2.5 mg tablet 2.5 mg PO DIRECTED 06/09/23 02/18/24 potassium chloride 10 mEq 10 meq PO DAILY 06/09/23 02/18/24 tablet,extended release Allergies Allergy/AdvReac Type Severity Reaction Status Date / Time Iodinated Contrast Media Allergy Severe Anaphylaxis Verified 03/26/24 22:13 metformin Allergy Severe Stopped Verified 03/26/24 22:13 Breathing Sulfa (Sulfonamide Allergy Severe Anaphylaxis Verified 03/26/24 22:13 Antibiotics) sulfamethoxazole Allergy Severe Anaphylaxis Verified 03/26/24 22:13 famotidine Allergy Intermediate Hives Verified 03/26/24 22:13 losartan Allergy Intermediate SWLLEING Verified 03/26/24 22:13 LIP AND HIVES nebivolol Allergy Intermediate LIP Verified 03/26/24 22:13 SWELLING Quinolones Allergy Intermediate Nervousness Verified 03/26/24 22:13 valsartan Allergy Intermediate HIVES/SOB Verified 03/26/24 22:13 amlodipine Allergy Mild HIVES Verified 03/26/24 22:13 azithromycin Allergy Mild Nervousness Verified 03/26/24 22:13 spironolactone Allergy Mild RASH AND Verified 03/26/24 22:13 ITCHING trimethoprim Allergy Mild RASH Verified 03/26/24 22:13 pantoprazole Allergy Hives Verified 03/27/24 01:35 cephalexin AdvReac Mild Nervousness Verified 03/26/24 22:13 flavoxate AdvReac Mild Nervousness Verified 03/26/24 22:13 levofloxacin AdvReac Mild Nervousness Verified 03/26/24 22:13 lidocaine AdvReac Mild Nervousness Verified 03/26/24 22:13 lisinopril AdvReac Mild Nervousness Verified 03/26/24 22:13 nitrofurantoin AdvReac Mild Nervousness Verified 03/26/24 22:13 oxycodone AdvReac Mild Nervousness Verified 03/26/24 22:13 paroxetine AdvReac Mild Nervousness Verified 03/26/24 22:13 Review of Systems Review of Systems: All systems reviewed & are unremarkable except as noted in HPI and below PMFSH Past Medical History Medical History Allergic rhinitis Anxiety Asthma CAD (coronary artery disease) history [place] Chronic post-traumatic stress disorder (PTSD) Chronic sinusitis Concussion Depression GERD (gastroesophageal reflux disease) HTN (hypertension) Prediabetes Sleep apnea Surgical History Surgical History H/O gastric bypass History of cardiac cath History of colonoscopy Hx of cholecystectomy Family History Family History Grandparent Family history of obesity Hypertension Diabetes mellitus Mother Depression Patient's mother is in good health Family history of mental disorder Father Hypertension Patient's father is in good health Family history of alcoholism Cerebrovascular accident Sibling Patient's sister is in good health Patient's brother is in good health Father Cerebrovascular accident Alcoholism Hypertension Heart disease Mother Family history of malignant neoplasm Depression Hypertension Other Family history of cardiovascular disease Social History Social History Smoking status: Former smoker Smoking end date: 09/13/95 Alcohol intake: former Substance use: never Substance use type: opiates Lack of Transportation: No Lack of Food: Never True Current Housing: I Have Housing Concerned About Future Housing: No Di
[2024-03-27] MEDS: MAG HYDROX/AL HYDROX/SIMETH 30 ML UDC PO (01:33)
[2024-03-27 02:01] VITALS: BP 154/93; PULSE 63; RESP 15; O2SAT 100
[2024-03-27 02:14] LABS: Troponin I < 0.012 ng/mL (0.000-0.034)
[2024-03-27 04:30] VITALS: BP 143/80; PULSE 78; RESP 16; O2SAT 99
== END 2024-03-27 04:31 | disposition home or self-care (01) ==
PROVIDERS: Emergency Provider Emergency Medicine; PCP Family Medicine Adolescent Medicine
DX: R10.13 Epigastric pain (principal); R10.32 Left lower quadrant pain; R07.9 Chest pain, unspecified; I25.10 Atherosclerotic heart disease of native coronary artery without angina pectoris; I10 Essential (primary) hypertension; J45.909 Unspecified asthma, uncomplicated; J32.9 Chronic sinusitis, unspecified; K21.9 Gastro-esophageal reflux disease without esophagitis; G47.30 Sleep apnea, unspecified; R73.03 Prediabetes; F41.9 Anxiety disorder, unspecified; F32.A Depression, unspecified; F43.10 Post-traumatic stress disorder, unspecified; Z98.84 Bariatric surgery status; Z87.891 Personal history of nicotine dependence; Z90.49 Acquired absence of other specified parts of digestive tract; R94.31 Abnormal electrocardiogram [ECG] [EKG]; N20.0 Calculus of kidney
CPT/HCPCS: 36415; 71046; 74176; 80053; 83690; 84484; 85025; 85610; 85730; 93005; 99284; A9270

== ENCOUNTER 2024-04-09 13:28 | Emergency (ER) | payer OTHER, SELFPAY ==
--- NOTE | ~2024-04-09 | XR_ITS ---
XR chest 2V Ordering provider: Nicholas Carter MD History: 54 years Male with . cp, SOB . Comparison: March 26, 2024 FINDINGS: MEDIASTINUM: The cardiac silhouette is not enlarged. LUNGS: No infiltrates, effusions or pneumothorax. Minimal bilateral pleural thickening is seen in the mid zones. OTHER: Mild scoliosis seen in the midthoracic area. No free air under the diaphragm. IMPRESSION: No acute cardiopulmonary pathology. Reviewed, dictated and finalized at location A.
[2024-04-09 14:10] VITALS: BP 145/91; PULSE 68; RESP 17; TEMP 37.1; O2SAT 97
--- NOTE | 2024-04-09 14:34 | ECG_ITS ---
Test Date: 2024-04-09 14:42:44 Measurements Intervals [place] Rate: 64 P: -4 HI: 156 QRS: 23 QRSD: 106 T: -1 QT: 329 QTc: 340 Interpretive Statements SINUS RHYTHM NONSPECIFIC T-WAVE ABNORMALITY- ANTEROLAT/INF LEADS BASELINE ARTIFACT- I, II, III, AVR, AVL, AVF, V2, V4-V6 BORDERLINE ECG Compared to ECG 03/27/2024 01:29:01 T-wave abnormality now present Electronically Signed On 04-09-2024 15:16:40 CDT by Yonathan Ross D.O.
[2024-04-09 14:50] LABS: Basophils Percent Auto 0.8 % (0.2-1.2); Eosinophils Absolute Auto 0.2 K/mm3 (0-0.3); Eosinophils Percent Auto 3.2 % (0-4.4); Hematocrit 38.3 % (42.0-52.0); Hemoglobin 11.3 g/dL (14.0-18.0); Immature Granulocyte Absolute 0.01 K/mm3 (0.00-0.031); Immature Granulocyte Percent A 0.2 % (0-0.5); Lymphocytes Absolute Auto 1.42 K/mm3 (0.9-3.2); Lymphocytes Percent Auto 28.1 % (18.3-44.2); Mean Corpuscular HGB Conc 29.5 g/dl (32-36); Mean Corpuscular Hemoglobin 20.2 pg (26-34); Mean Corpuscular Volume 68.4 fl (80-100); Monocytes Absolute Auto 0.4 K/mm3 (0.1-0.6); Monocytes Percent Auto 7.3 % (2.6-8.5); Neutrophils Absolute Auto 3.1 K/mm3 (1.3-6.7); Neutrophils Percent Auto 60.4 % (45.5-73.1); Platelet Count Result 146 k/mm3 (150-375); Red Cell Distribution Width 19.4 % (11.5-14.5); White Blood Count 5.1 K/mm3 (4.5-10.0)
[2024-04-09 14:57] LABS: Appearance Urine Cloudy (Clear); Bacteria Urine None Seen /hpf; Bilirubin Urine 2+ (Negative); Blood Urine Negative (Negative); Color Urine Dark Yellow (Yellow); Glucose Urine UA Negative (Negative); Ketones Urine 1+ mg/dL (Negative); Leukocyte Esterase Ur Trace LEU/UL (Negative); Mucus Urine Present /lpf; Need Manual Microscopic Reviewed; Nitrate Urine Positive (Negative); Non Pathogenic Casts >20; Protein Urine 2+ mg/dL (Negative); RBC Urine 0-2 /hpf (0-2); Specific Grav Ur 1.041 (1.001-1.035); Squamous Epithelial Cell Urine Few /hpf (Few); WBC Urine 0-5 /hpf (0-3); pH Urine 5.5 (5.0-9.0)
[2024-04-09 14:58] LABS: Add Urine Microscopic? YES
[2024-04-09 15:00] LABS: Alanine Aminotransferase 40 U/L (6-50); Albumin Level 4.7 g/dL (3.5-5.1); Alkaline Phosphatase 68 U/L (38-126); Anion Gap 11 mmol/L (4-12); Aspartate Amino Transferase 45 U/L (17-59); Bilirubin,Total 1.5 mg/dL (0.2-1.3); Blood Urea Nitrogen 8 mg/dL (9-20); Calcium 9.1 mg/dL (8.4-10.2); Carbon Dioxide 30 mmol/L (22-30); Chloride 101 mmol/L (98-107); Estimated CRCL calculation 107 ml/min; Estimated Glomerular Filt Rate > 60; Glucose 120 mg/dL (65-110); INR 1.1; Lipase 85 U/L (23-300); Potassium 3.4 mmol/L (3.4-5.0); Prothrombin Time 14.2 Seconds (11.1-14.7); Sodium 142 mmol/L (137-145)
[2024-04-09 15:01] LABS: Partial Thromboplastin Time 40.4 Seconds (22.3-36.8)
[2024-04-09 15:05] LABS: Hypochromasia 1+; Platelet Estimate Adequate (Adequate)
[2024-04-09 15:06] LABS: Anisocytosis 1+; Microcytosis 1+ (NORMAL); Ovalocytes 1+; Schistocytes None Seen
--- NOTE | 2024-04-09 15:09 | ED.ABDPAIN ---
HPI - Abdominal Pain General Chief Complaint: Abdominal Pain Stated Complaint: abd pain Time Seen by Provider: 04/09/24 14:34 History of Present Illness HPI narrative: 54-year-old male presents to the emergency department for evaluation for shortness breath lightheadedness and urinary pain. Patient states symptoms have been going on for the last few days. Patient was also concerned that this may have been his diverticulitis. Related Data Home Medications Medication Instructions Recorded Confirmed indapamide 2.5 mg tablet 2.5 mg PO DIRECTED 06/09/23 02/18/24 potassium chloride 10 mEq 10 meq PO DAILY 06/09/23 02/18/24 tablet,extended release Allergies Allergy/AdvReac Type Severity Reaction Status Date / Time Iodinated Contrast Media Allergy Severe Anaphylaxis Verified 04/09/24 14:14 metformin Allergy Severe Stopped Verified 04/09/24 14:14 Breathing Sulfa (Sulfonamide Allergy Severe Anaphylaxis Verified 04/09/24 14:14 Antibiotics) sulfamethoxazole Allergy Severe Anaphylaxis Verified 04/09/24 14:14 famotidine Allergy Intermediate Hives Verified 04/09/24 14:14 losartan Allergy Intermediate SWLLEING Verified 04/09/24 14:14 LIP AND HIVES nebivolol Allergy Intermediate LIP Verified 04/09/24 14:14 SWELLING Quinolones Allergy Intermediate Nervousness Verified 04/09/24 14:14 valsartan Allergy Intermediate HIVES/SOB Verified 04/09/24 14:14 amlodipine Allergy Mild HIVES Verified 04/09/24 14:14 azithromycin Allergy Mild Nervousness Verified 04/09/24 14:14 spironolactone Allergy Mild RASH AND Verified 04/09/24 14:14 ITCHING trimethoprim Allergy Mild RASH Verified 04/09/24 14:14 pantoprazole Allergy Hives Verified 04/09/24 14:14 cephalexin AdvReac Mild Nervousness Verified 04/09/24 14:14 flavoxate AdvReac Mild Nervousness Verified 04/09/24 14:14 levofloxacin AdvReac Mild Nervousness Verified 04/09/24 14:14 lidocaine AdvReac Mild Nervousness Verified 04/09/24 14:14 lisinopril AdvReac Mild Nervousness Verified 04/09/24 14:14 nitrofurantoin AdvReac Mild Nervousness Verified 04/09/24 14:14 oxycodone AdvReac Mild Nervousness Verified 04/09/24 14:14 paroxetine AdvReac Mild Nervousness Verified 04/09/24 14:14 Review of Systems Review of Systems: All systems reviewed & are unremarkable except as noted in HPI and below PMFSH Past Medical History Medical History Allergic rhinitis Anxiety Asthma CAD (coronary artery disease) history [place] Chronic post-traumatic stress disorder (PTSD) Chronic sinusitis Concussion Depression GERD (gastroesophageal reflux disease) HTN (hypertension) Prediabetes Sleep apnea Surgical History Surgical History H/O gastric bypass History of cardiac cath History of colonoscopy Hx of cholecystectomy Family History Family History Grandparent Family history of obesity Hypertension Diabetes mellitus Mother Depression Patient's mother is in good health Family history of mental disorder Father Hypertension Patient's father is in good health Family history of alcoholism Cerebrovascular accident Sibling Patient's sister is in good health Patient's brother is in good health Father Cerebrovascular accident Alcoholism Hypertension Heart disease Mother Family history of malignant neoplasm Depression Hypertension Other Family history of cardiovascular disease Social History Social History Smoking status: Former smoker Smoking end date: 09/13/95 Alcohol intake: former Substance use: never Substance use type: opiates Lack of Transportation: No Lack of Food: Never True Current Housing: I Have Housing Concerned About Future Housing: No Difficulty Paying Gas/Electric Bills: No Difficulty Paying for Meds: No Cur
[2024-04-09 15:10] LABS: Troponin I < 0.012 ng/mL (0.000-0.034)
[2024-04-09] MEDS: ALBUTEROL SULFATE NEB 2.5 MG/3 ML INH INHALATION (15:16)
[2024-04-09 15:17] VITALS: PULSE 61; RESP 16
[2024-04-09 15:24] VITALS: PULSE 59; RESP 12
[2024-04-09 15:26] VITALS: BP 134/70; PULSE 62; RESP 14; O2SAT 100
[2024-04-09 15:38] LABS: Influenza A QL RT-PCR Negative (Negative); Influenza B QL RT-PCR Negative (Negative); RSV RNA, RT-PCR Negative (Negative); SARS-CoV-2 RNA PCR Negative (Negative)
[2024-04-09] MEDS: CIPROFLOXACIN 500 MG TAB PO (15:39)
[2024-04-09] MEDS: metroNIDAZOLE 500 MG TABLET PO (15:39)
[2024-04-09 17:19] VITALS: BP 152/79; PULSE 61; RESP 12; O2SAT 98
[2024-04-09 17:48] LABS: Troponin I < 0.012 ng/mL (0.000-0.034)
== END 2024-04-09 18:01 | disposition home or self-care (01) ==
PROVIDERS: Emergency Provider Emergency Medicine; PCP Family Medicine Adolescent Medicine
DX: N39.0 Urinary tract infection, site not specified (principal); Z20.822 Contact with and (suspected) exposure to COVID-19; F41.9 Anxiety disorder, unspecified; J45.909 Unspecified asthma, uncomplicated; I25.10 Atherosclerotic heart disease of native coronary artery without angina pectoris; F32.A Depression, unspecified; K21.9 Gastro-esophageal reflux disease without esophagitis; I10 Essential (primary) hypertension; G47.30 Sleep apnea, unspecified
CPT/HCPCS: 36415; 71046; 80053; 81001; 83690; 84484; 85025; 85610; 85730; 87637; 93005; 94640; 99284; A9270

== ENCOUNTER 2024-04-22 13:25 | Emergency (ER) | payer OTHER, SELFPAY ==
--- NOTE | 2024-04-22 13:33 | ED.MALEGU ---
HPI - Male Genitourinary General Chief complaint: Urogenital-Male Stated complaint: Urinary issue,diverticulitis Time Seen by Provider: 04/22/24 13:45 Source: patient Mode of arrival: ambulatory Limitations: no limitations History of Present Illness HPI Narrative: Carlos is a 54-year-old male patient presenting to the clinic today with complaints possible UTI and diverticulitis. He reports he was in the ER on April 09 2024 diagnosed with a urinary tract infection and diverticulitis. He was given prescription for ciprofloxacin and Flagyl. States that his symptoms did improve however he is now having similar symptoms again with left lower quadrant discomfort and urinary frequency. He denies any fever, chills, or body aches. Has been having sweats. Related Data Home Medications Medication Instructions Recorded Confirmed indapamide 2.5 mg tablet 2.5 mg PO DIRECTED 06/09/23 04/22/24 potassium chloride 10 mEq 10 meq PO DAILY 06/09/23 04/22/24 tablet,extended release omeprazole 40 mg capsule,delayed 40 mg PO DAILY 04/22/24 04/22/24 release Allergies Allergy/AdvReac Type Severity Reaction Status Date / Time Iodinated Contrast Media Allergy Severe Anaphylaxis Verified 04/22/24 13:30 metformin Allergy Severe Stopped Verified 04/22/24 13:30 Breathing Sulfa (Sulfonamide Allergy Severe Anaphylaxis Verified 04/22/24 13:30 Antibiotics) sulfamethoxazole Allergy Severe Anaphylaxis Verified 04/22/24 13:30 famotidine Allergy Intermediate Hives Verified 04/22/24 13:30 losartan Allergy Intermediate SWLLEING Verified 04/22/24 13:30 LIP AND HIVES nebivolol Allergy Intermediate LIP Verified 04/22/24 13:30 SWELLING Quinolones Allergy Intermediate Nervousness Verified 04/22/24 13:30 valsartan Allergy Intermediate HIVES/SOB Verified 04/22/24 13:30 amlodipine Allergy Mild HIVES Verified 04/22/24 13:30 azithromycin Allergy Mild Nervousness Verified 04/22/24 13:30 pantoprazole Allergy Mild Hives Verified 04/22/24 13:30 spironolactone Allergy Mild RASH AND Verified 04/22/24 13:30 ITCHING trimethoprim Allergy Mild RASH Verified 04/22/24 13:30 cephalexin AdvReac Mild Nervousness Verified 04/22/24 13:30 flavoxate AdvReac Mild Nervousness Verified 04/22/24 13:30 levofloxacin AdvReac Mild Nervousness Verified 04/22/24 13:30 lidocaine AdvReac Mild Nervousness Verified 04/22/24 13:30 lisinopril AdvReac Mild Nervousness Verified 04/22/24 13:30 nitrofurantoin AdvReac Mild Nervousness Verified 04/22/24 13:30 oxycodone AdvReac Mild Nervousness Verified 04/22/24 13:30 paroxetine AdvReac Mild Nervousness Verified 04/22/24 13:30 Review of Systems Review of Systems: Pertinent positives per HPI. Patient denies any fever, chills, rash, headache, visual changes, dizziness, cough, runny nose, sore throat, shortness of breath, chest pain, palpitations, nausea, vomiting, diarrhea, constipation, abdominal pain, or any urinary issues. [facility] Past Medical History Medical History Allergic rhinitis Anxiety Asthma CAD (coronary artery disease) history [place] Chronic post-traumatic stress disorder (PTSD) Chronic sinusitis Concussion Depression GERD (gastroesophageal reflux disease) HTN (hypertension) Prediabetes Sleep apnea Surgical History Surgical History H/O gastric bypass History of cardiac cath History of colonoscopy Hx of cholecystectomy Family History Family History Grandparent Family history of obesity Hypertension Diabetes mellitus Mother Depression Patient's mother is in good health Family history of mental disorder Father Hypertension Patient's father is in good health Family history of alcoholism Cerebrovascular accident Sibling Patient's sister is in good health Patient's brother is in good health Father Cerebrovascular
[2024-04-22 13:40] VITALS: BP 158/87; PULSE 59; RESP 16; TEMP 37.1; O2SAT 99
[2024-04-22 13:41] VITALS: BP 158/87; PULSE 59; RESP 16; TEMP 37.1; O2SAT 99
[2024-04-22 13:41] LABS: EDUAAPPEAR Clear; EDUABILI 1+; EDUABLOOD Negative; EDUACOLOR1 Yellow; EDUAGLUCOSE Negative; EDUAKETONE Trace; EDUALEUKO Negative; EDUANITRATE Negative; EDUAPROTEIN 3+; EDUASPGRAVITY 1.025
== END 2024-04-22 14:26 | disposition home or self-care (01) ==
PROVIDERS: Emergency Provider Nurse Practitioner Family
DX: R10.32 Left lower quadrant pain (principal); R35.0 Frequency of micturition; Z87.891 Personal history of nicotine dependence; J45.909 Unspecified asthma, uncomplicated; I25.10 Atherosclerotic heart disease of native coronary artery without angina pectoris; I25.2 Old myocardial infarction; K21.9 Gastro-esophageal reflux disease without esophagitis; I10 Essential (primary) hypertension; R73.03 Prediabetes; Z98.84 Bariatric surgery status
CPT/HCPCS: 81003; 99213; G0463

== ENCOUNTER 2024-05-31 13:14 | Emergency (ER) | payer OTHER, SELFPAY ==
[2024-05-31 13:18] VITALS: BP 147/79; PULSE 60; RESP 18; TEMP 36.1; O2SAT 100
--- NOTE | 2024-05-31 13:55 | ED.GENADULT ---
HPI - General Adult General Chief complaint: Unspecified Stated complaint: Vitals Checked Source: patient Mode of arrival: ambulatory Limitations: no limitations History of Present Illness HPI narrative: Patient presents requesting his blood pressure be checked. Indicates he ran out of atenolol in the past but has since restarted. He states that other resources in the area for him to check his blood pressure do not have functioning equipment. He denies any chest pain or shortness of breath. He simply would like his blood pressure checked. Related Data Home Medications Medication Instructions Recorded Confirmed indapamide 2.5 mg tablet 2.5 mg PO DIRECTED 06/09/23 05/31/24 potassium chloride 10 mEq 10 meq PO DAILY 06/09/23 05/31/24 tablet,extended release omeprazole 40 mg capsule,delayed 40 mg PO DAILY 04/22/24 05/31/24 release Allergies Allergy/AdvReac Type Severity Reaction Status Date / Time Iodinated Contrast Media Allergy Severe Anaphylaxis Verified 05/31/24 13:15 metformin Allergy Severe Stopped Verified 05/31/24 13:15 Breathing Sulfa (Sulfonamide Allergy Severe Anaphylaxis Verified 05/31/24 13:15 Antibiotics) sulfamethoxazole Allergy Severe Anaphylaxis Verified 05/31/24 13:15 famotidine Allergy Intermediate Hives Verified 05/31/24 13:15 losartan Allergy Intermediate SWLLEING Verified 05/31/24 13:15 LIP AND HIVES nebivolol Allergy Intermediate LIP Verified 05/31/24 13:15 SWELLING Quinolones Allergy Intermediate Nervousness Verified 05/31/24 13:15 valsartan Allergy Intermediate HIVES/SOB Verified 05/31/24 13:15 amlodipine Allergy Mild HIVES Verified 05/31/24 13:15 azithromycin Allergy Mild Nervousness Verified 05/31/24 13:15 pantoprazole Allergy Mild Hives Verified 05/31/24 13:15 spironolactone Allergy Mild RASH AND Verified 05/31/24 13:15 ITCHING trimethoprim Allergy Mild RASH Verified 05/31/24 13:15 cephalexin AdvReac Mild Nervousness Verified 05/31/24 13:15 flavoxate AdvReac Mild Nervousness Verified 05/31/24 13:15 levofloxacin AdvReac Mild Nervousness Verified 05/31/24 13:15 lidocaine AdvReac Mild Nervousness Verified 05/31/24 13:15 lisinopril AdvReac Mild Nervousness Verified 05/31/24 13:15 nitrofurantoin AdvReac Mild Nervousness Verified 05/31/24 13:15 oxycodone AdvReac Mild Nervousness Verified 05/31/24 13:15 paroxetine AdvReac Mild Nervousness Verified 05/31/24 13:15 Review of Systems Review of Systems: CONSTITUTIONAL: Denies fever, chills, or sweats. EYES: Denies visual changes, redness, or discharge. ENT: Denies rhinorrhea, congestion, sore throat, or otalgia. CARDIOVASCULAR: Denies chest pain, palpitations, or edema. RESPIRATORY: Denies cough or dyspnea. GASTROINTESTINAL: Denies abdominal pain, nausea, vomiting, or diarrhea. GENITOURINARY: Denies dysuria or hematuria. SKIN: Denies rash or itching. MUSCULOSKELETAL: Denies back pain, joint pain, or myalgia. NEUROLOGIC: Denies headache, numbness, dizziness, or weakness. PSYCHIATRIC: Denies anxiety or depression. [facility] Past Medical History Medical History Allergic rhinitis Anxiety Asthma CAD (coronary artery disease) history [place] Chronic post-traumatic stress disorder (PTSD) Chronic sinusitis Concussion Depression GERD (gastroesophageal reflux disease) HTN (hypertension) Prediabetes Sleep apnea Surgical History Surgical History H/O gastric bypass History of cardiac cath History of colonoscopy Hx of cholecystectomy Family History Family History Grandparent Family history of obesity Hypertension Diabetes mellitus Mother Depression Patient's mother is in good health Family history of mental disorder Father Hypertension Patient's father is in good health Family history of alcoholism Cerebrovascular accident
== END 2024-05-31 13:53 | disposition home or self-care (01) ==
PROVIDERS: Emergency Provider Nurse Practitioner
DX: Z01.31 Encounter for examination of blood pressure with abnormal findings (principal); I10 Essential (primary) hypertension; J45.909 Unspecified asthma, uncomplicated; I25.10 Atherosclerotic heart disease of native coronary artery without angina pectoris; I25.2 Old myocardial infarction; K21.9 Gastro-esophageal reflux disease without esophagitis; R73.03 Prediabetes; Z87.891 Personal history of nicotine dependence; Z98.84 Bariatric surgery status
CPT/HCPCS: 99211; G0463

== ENCOUNTER 2024-06-03 19:53 | Emergency (ER) | payer OTHER, SELFPAY ==
--- NOTE | ~2024-06-03 | CT_ITS ---
EXAMINATION: CT abdomen pelvis wo con DATE: 06/03/2024 22:46 INDICATION: Abdominal pain. TECHNIQUE: Computed tomography (CT) of the abdomen and pelvis was performed without intravenous contr ast. Automated exposure control and iterative reconstruction technique were employed. The dose-length product was 1509.83 mGy-cm. COMPARISON: CT abdomen and pelvis 03/27/2024, 10/01/19 FINDINGS: The visualized portions of the lung bases demonstrate mild atelectasis. No pleural effusion . The heart size is normal. No pericardial effusion. There is diffuse hepatic steatosis. There are ch anges of cholecystectomy. The spleen, pancreas, and adrenal glands are normal. There are two 3 mm sto cedric in right kidney. There is a 4 mm stone in left kidney. There are bilateral inguinal hernias conta ining fat. There are scattered diverticula in the colon. There is wall thickening of the sigmoid colo n. The colon is mildly dilated proximal to this area. The appendix is normal. There is a chronic fist danny from the sigmoid colon to the bladder wall. There is no free intraperitoneal fluid. There is a 10 x 12 mm mesenteric lymph node on the left. There is moderate lumbar spondylosis. IMPRESSION: 1. Chronic sigmoid diverticulitis with partial obstruction and colovesical fistula. Malignancy is not excluded. 2. Mildly enlarged mesenteric lymph node, likely reactive. 3. Bilateral inguinal hernias containing fat. Reviewed, dictated and finalized at location A. IMPRESSION: 1. Chronic sigmoid diverticulitis with partial obstruction and colovesical fist danny. Malignancy is not excluded. 2. Mildly enlarged mesenteric lymph node, likely reactive. 3. Bilateral inguinal hernias containing fat.
[2024-06-03 19:56] VITALS: BP 159/77; PULSE 65; RESP 17; TEMP 36.8; O2SAT 99
--- NOTE | 2024-06-03 21:30 | PC.NURSE ---
Pt called to go back to a room and requested that we take another patient instead because she looked like she is was in more pain
[2024-06-03] MEDS: SODIUM CHLORIDE 0.9% IV 1,000 ML 999 ML IV CONT (22:33)
[2024-06-03 22:34] LABS: Basophils Percent Auto 0.6 % (0.2-1.2); Eosinophils Absolute Auto 0.1 K/mm3 (0-0.3); Eosinophils Percent Auto 1.4 % (0-4.4); Hematocrit 38.4 % (42.0-52.0); Hemoglobin 11.3 g/dL (14.0-18.0); Immature Granulocyte Absolute 0.01 K/mm3 (0.00-0.031); Immature Granulocyte Percent A 0.1 % (0-0.5); Lymphocytes Absolute Auto 1.41 K/mm3 (0.9-3.2); Lymphocytes Percent Auto 20.4 % (18.3-44.2); Mean Corpuscular HGB Conc 29.4 g/dl (32-36); Mean Corpuscular Volume 67.8 fl (80-100); Mean Platelet Volume 9.5 fl (7.4-10.4); Monocytes Absolute Auto 0.4 K/mm3 (0.1-0.6); Monocytes Percent Auto 5.7 % (2.6-8.5); Neutrophils Percent Auto 71.8 % (45.5-73.1); Platelet Count Result 193 k/mm3 (150-375); Red Blood Count 5.66 M/mm3 (4.6-6.20); Red Cell Distribution Width 18.6 % (11.5-14.5); White Blood Count 6.9 K/mm3 (4.5-10.0)
[2024-06-03 22:36] VITALS: BP 144/75; PULSE 64; RESP 13; O2SAT 100
[2024-06-03 22:43] LABS: Lactic Acid Reflex 1.1 mmol/L (0.7-2.0)
[2024-06-03 22:44] LABS: Alanine Aminotransferase 23 U/L (6-50); Albumin Level 4.5 g/dL (3.5-5.1); Alkaline Phosphatase 69 U/L (38-126); Anion Gap 10 mmol/L (4-12); Aspartate Amino Transferase 30 U/L (17-59); Bilirubin,Total 1.5 mg/dL (0.2-1.3); Blood Urea Nitrogen 8 mg/dL (9-20); Calcium 8.9 mg/dL (8.4-10.2); Carbon Dioxide 29 mmol/L (22-30); Chloride 100 mmol/L (98-107); Estimated CRCL calculation 98 ml/min; Estimated Glomerular Filt Rate > 60; Glucose 99 mg/dL (65-110); Lipase 69 U/L (23-300); Potassium 3.4 mmol/L (3.4-5.0); Sodium 139 mmol/L (137-145)
[2024-06-03 22:57] LABS: Add Urine Microscopic? NO; Appearance Urine Clear (Clear); Bilirubin Urine Negative (Negative); Blood Urine Negative (Negative); Color Urine Yellow (Yellow); Glucose Urine UA Negative (Negative); Ketones Urine Negative (Negative); Leukocyte Esterase Ur Negative LEU/UL (Negative); Nitrate Urine Negative (Negative); Protein Urine Negative (Negative); Specific Grav Ur 1.007 (1.001-1.035); Urobilinogen Urine 0.2 mg/dL (<2.0); pH Urine 6.5 (5.0-9.0)
[2024-06-03 23:30] LABS: Platelet Estimate Adequate (Adequate)
[2024-06-03 23:32] LABS: Anisocytosis 1+; Schistocytes None Seen
--- NOTE | 2024-06-04 00:39 | ED.GENADULT ---
HPI - General Adult General Chief complaint: Abdominal Pain Stated complaint: abdominal pain Time Seen by Provider: 06/03/24 22:00 History of Present Illness HPI narrative: Patient is a 54-year-old gentleman who presents emergency department with chief complaint of bladder pain and bilateral lower quadrant pain the patient reports he goes to his inguinal area but reports that he does not have pain in the scrotum or testicles patient denies vomiting reports that he has been told that he has a tumor on his: That he is following by GI but just fired his GI doctor the patient reports that he is concerned that he may have a UTI. Related Data Home Medications Medication Instructions Recorded Confirmed indapamide 2.5 mg tablet 2.5 mg PO DIRECTED 06/09/23 05/31/24 potassium chloride 10 mEq 10 meq PO DAILY 06/09/23 05/31/24 tablet,extended release omeprazole 40 mg capsule,delayed 40 mg PO DAILY 04/22/24 05/31/24 release Allergies Allergy/AdvReac Type Severity Reaction Status Date / Time Iodinated Contrast Media Allergy Severe Anaphylaxis Verified 06/03/24 22:15 metformin Allergy Severe Stopped Verified 06/03/24 22:15 Breathing Sulfa (Sulfonamide Allergy Severe Anaphylaxis Verified 06/03/24 22:15 Antibiotics) sulfamethoxazole Allergy Severe Anaphylaxis Verified 06/03/24 22:15 famotidine Allergy Intermediate Hives Verified 06/03/24 22:15 losartan Allergy Intermediate SWLLEING Verified 06/03/24 22:15 LIP AND HIVES nebivolol Allergy Intermediate LIP Verified 06/03/24 22:15 SWELLING Quinolones Allergy Intermediate Nervousness Verified 06/03/24 22:15 valsartan Allergy Intermediate HIVES/SOB Verified 06/03/24 22:15 amlodipine Allergy Mild HIVES Verified 06/03/24 22:15 azithromycin Allergy Mild Nervousness Verified 06/03/24 22:15 pantoprazole Allergy Mild Hives Verified 06/03/24 22:15 spironolactone Allergy Mild RASH AND Verified 06/03/24 22:15 ITCHING trimethoprim Allergy Mild RASH Verified 06/03/24 22:15 morphine Allergy Unknown Verified 06/03/24 23:22 cephalexin AdvReac Mild Nervousness Verified 06/03/24 22:15 flavoxate AdvReac Mild Nervousness Verified 06/03/24 22:15 levofloxacin AdvReac Mild Nervousness Verified 06/03/24 22:15 lidocaine AdvReac Mild Nervousness Verified 06/03/24 22:15 lisinopril AdvReac Mild Nervousness Verified 06/03/24 22:15 nitrofurantoin AdvReac Mild Nervousness Verified 06/03/24 22:15 oxycodone AdvReac Mild Nervousness Verified 06/03/24 22:15 paroxetine AdvReac Mild Nervousness Verified 06/03/24 22:15 Review of Systems Review of Systems: A 10 system review of systems was completed on the patient and is negative except for what is stated in the HPI. Nursing and ancillary documentation was reviewed. [facility] Past Medical History Medical History Allergic rhinitis Anxiety Asthma CAD (coronary artery disease) history [place] Chronic post-traumatic stress disorder (PTSD) Chronic sinusitis Concussion Depression GERD (gastroesophageal reflux disease) HTN (hypertension) Prediabetes Sleep apnea Surgical History Surgical History H/O gastric bypass History of cardiac cath History of colonoscopy Hx of cholecystectomy Family History Family History Grandparent Family history of obesity Hypertension Diabetes mellitus Mother Depression Patient's mother is in good health Family history of mental disorder Father Hypertension Patient's father is in good health Family history of alcoholism Cerebrovascular accident Sibling Patient's sister is in good health Patient's brother is in good health Father Cerebrovascular accident Alcoholism Hypertension Heart disease Mother Family history of malignant neoplasm Depression Hypertension Other Family history of cardiovascula
[2024-06-04 00:43] VITALS: BP 156/87; PULSE 63; RESP 14; O2SAT 98
--- NOTE | 2024-06-04 03:31 | PC.NURSE ---
This RN was cleaning room when I found pt left his disc of images for [place] on metal tray. 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
== END 2024-06-04 03:34 | disposition home or self-care (01) ==
PROVIDERS: Emergency Provider Emergency Medicine
DX: K57.32 Diverticulitis of large intestine without perforation or abscess without bleeding (principal); I25.10 Atherosclerotic heart disease of native coronary artery without angina pectoris; I25.2 Old myocardial infarction; I10 Essential (primary) hypertension; J45.909 Unspecified asthma, uncomplicated; R73.03 Prediabetes; G47.30 Sleep apnea, unspecified; K21.9 Gastro-esophageal reflux disease without esophagitis; F41.9 Anxiety disorder, unspecified; F32.A Depression, unspecified; F43.10 Post-traumatic stress disorder, unspecified; Z98.84 Bariatric surgery status; Z87.891 Personal history of nicotine dependence; Z90.49 Acquired absence of other specified parts of digestive tract; Z79.84 Long term (current) use of oral hypoglycemic drugs; Z79.899 Other long term (current) drug therapy; K40.20 Bilateral inguinal hernia, without obstruction or gangrene, not specified as recurrent; K56.600 Partial intestinal obstruction, unspecified as to cause
CPT/HCPCS: 36415; 74176; 80053; 81003; 83605; 83690; 85025; 96360; 99284; J2405; J7030

== ENCOUNTER 2024-07-24 10:19 | Emergency (ER) | payer OTHER, SELFPAY ==
[2024-07-24 10:28] VITALS: BP 142/82; PULSE 58; RESP 20; TEMP 36.1; O2SAT 100
--- NOTE | 2024-07-24 10:50 | ED.URI ---
HPI - URI/Sore Throat General Chief Complaint: Upper Respiratory Infection Stated Complaint: SOB, nasal drainage Time Seen by Provider: 07/24/24 10:41 Source: patient and RN notes reviewed Mode of arrival: ambulatory Limitations: no limitations History of Present Illness HPI Narrative: Patient presents today complaining of a 3 day history of cough with chest wall pain, sore throat, postnasal drainage. Reports shortness of breath a few days ago but this has since resolved. He also reports some nausea this morning due to postnasal drainage. Denies fever. He has been using Flonase and Mucinex DM with some relief. Reports history of asthma. Related Data Home Medications Medication Instructions Recorded Confirmed indapamide 2.5 mg tablet 2.5 mg PO DIRECTED 06/09/23 07/24/24 potassium chloride 10 mEq 10 meq PO DAILY 06/09/23 07/24/24 tablet,extended release omeprazole 40 mg capsule,delayed 40 mg PO DAILY 04/22/24 07/24/24 release Allergies Allergy/AdvReac Type Severity Reaction Status Date / Time Iodinated Contrast Media Allergy Severe Anaphylaxis Verified 07/24/24 10:39 metformin Allergy Severe Stopped Verified 07/24/24 10:39 Breathing Sulfa (Sulfonamide Allergy Severe Anaphylaxis Verified 07/24/24 10:39 Antibiotics) sulfamethoxazole Allergy Severe Anaphylaxis Verified 07/24/24 10:39 famotidine Allergy Intermediate Hives Verified 07/24/24 10:39 losartan Allergy Intermediate SWLLEING Verified 07/24/24 10:39 LIP AND HIVES nebivolol Allergy Intermediate LIP Verified 07/24/24 10:39 SWELLING Quinolones Allergy Intermediate Nervousness Verified 07/24/24 10:39 valsartan Allergy Intermediate HIVES/SOB Verified 07/24/24 10:39 amlodipine Allergy Mild HIVES Verified 07/24/24 10:39 azithromycin Allergy Mild Nervousness Verified 07/24/24 10:39 pantoprazole Allergy Mild Hives Verified 07/24/24 10:39 spironolactone Allergy Mild RASH AND Verified 07/24/24 10:39 ITCHING trimethoprim Allergy Mild RASH Verified 07/24/24 10:39 morphine Allergy Unknown Verified 07/24/24 10:39 cephalexin AdvReac Mild Nervousness Verified 07/24/24 10:39 flavoxate AdvReac Mild Nervousness Verified 07/24/24 10:39 levofloxacin AdvReac Mild Nervousness Verified 07/24/24 10:39 lidocaine AdvReac Mild Nervousness Verified 07/24/24 10:39 lisinopril AdvReac Mild Nervousness Verified 07/24/24 10:39 nitrofurantoin AdvReac Mild Nervousness Verified 07/24/24 10:39 oxycodone AdvReac Mild Nervousness Verified 07/24/24 10:39 paroxetine AdvReac Mild Nervousness Verified 07/24/24 10:39 Review of Systems Review of Systems: CONSTITUTIONAL: Denies body aches, fever, chills, or sweats. EYES: Denies visual changes, redness, or discharge. ENT: Denies rhinorrhea, congestion, or otalgia.+ sore throat, postnasal drip CARDIOVASCULAR: Denies chest pain, palpitations, or edema. RESPIRATORY: Denies dyspnea.+ cough GASTROINTESTINAL: Denies abdominal pain, vomiting, or diarrhea.+ nausea GENITOURINARY: Denies dysuria or hematuria. SKIN: Denies rash, itching, or wounds. MUSCULOSKELETAL: Denies back pain, joint pain, or myalgia. NEUROLOGIC: Denies headache, numbness, tingling, or weakness. PSYCH: Denies depression or anxiety. [facility] Past Medical History Medical History Allergic rhinitis Anxiety Asthma CAD (coronary artery disease) history [place] Chronic post-traumatic stress disorder (PTSD) Chronic sinusitis Concussion Depression GERD (gastroesophageal reflux disease) HTN (hypertension) Prediabetes Sleep apnea Surgical History Surgical History H/O gastric bypass History of cardiac cath History of colonoscopy Hx of cholecystectomy Family History Family History Grandparent Family history of obesity Hypertension Diabetes mellitus Mother Depression Patient's mother is in good health Family history of mental disorder Father Hypertension Patient's father is in good health Family history of alcoholism Cerebrovascular accident Sibling Patient's sister is in good health Patient's brother is in good health Father Cerebrovascular accident Alcoholism Hypertension Heart disease Mother Family history of malignant neoplasm Depression Hypertension Other Family history of cardiovascular disease Social History Social History Smoking status: Former smoker Smoking end date: 09/13/95 Alcohol intake: former Substance use: never Substance use type: opiates Lack of Transportation: No Lack of Food: Never True Current Housing: I Have Housing Concerned About Future Housing: No Difficulty Paying Gas/Electric Bills: No Difficulty Paying for Meds: No Currently Unemployed: No Education: Master's Degree or Higher Difficulty w/ Childcare or Family Care: No Living arrangements: alone Occupation/Education: occupation Gender identity (if verbalized by the patient): Male Sexual Orientation (if Verbalized by the Patient): Straight or Heterosexual Spiritual care concerns: No Comments At time of signature, I have reviewed and agree with nursing past medical, surgical, social and family history unless otherwise noted. Please see nursing chart for further information. There is no relevant family history pertinent to the presenting complaint Exam Narrative: GENERAL: Mildly ill-appearing, well-nourished, and in no acute distress. HEAD: Normocephalic, atraumatic. EYES: EOMI. No redness or drainage. Conjunctivae normal. ENT: Mucous membranes pink and moist. Nares clear. No rhinorrhea. TMs normal bilaterally. Throat mildly erythematous without edema or exudate. Uvula midline. NECK: Normal AROM. Supple. No lymphadenopathy. CHEST: No respiratory distress. Clear to auscultation. HEART: Regular rate and rhythm. No murmur appreciated. EXTREMITIES: Normal range of motion. No edema. SKIN: Warm, dry, no rash. Capillary refill normal. Normal skin turgor. NEURO: No focal deficits. Alert and oriented x3. Gait steady. PSYCH: Normal affect. No signs of depression or anxiety. Course Course Level of Care: Express Care Visit Vital Signs Vital signs: Vital Signs Temperature 97.0 F L 07/24/24 10:28 Pulse Rate 58 L 07/24/24 10:28 Respiratory Rate 20 07/24/24 10:28 Blood Pressure 142/82 H 07/24/24 10:28 Pulse Oximetry 100 07/24/24 10:28 Oxygen Delivery Room Air 07/24/24 10:28 Temperature 97.0 F L 07/24/24 10:28 Pulse Rate 58 L 07/24/24 10:28 Respiratory Rate 20 07/24/24 10:28 Blood Pressure 142/82 H 07/24/24 10:28 Pulse Oximetry 100 07/24/24 10:28 Oxygen Delivery Room Air 07/24/24 10:28 Reviewed MDM - URI/Sore Throat MDM Narrative Medical decision making narrative: Patient request testing for COVID and influenza. COVID, influenza, and rapid strep negative. Symptoms likely viral in etiology. Discussed [id number] medication use and duration of illness. Patient is requesting prescription for Flonase as well as Zofran for his nausea. Anticipatory guidance given. Differential Diagnosis Differential diagnosis: Likely upper respiratory infection, viral infection, bronchitis, influenza, pharyngitis and other (Strep throat, COVID) Lab Data Attestation: I reviewed the patient's lab results. Critical Care Time Critical Care Time Critical Care Time: No Discharge Plan Discharge Clinical Impression: Upper respiratory infection Qualifiers: URI type: unspecified URI Qualified Code(s): J06.9 - Acute upper respiratory infection, unspecified Patient Disposition: Home, Self-Care Condition: Stable Instructions: Upper Respiratory Infection (DC) Additional Instructions: Your COVID-19, influenza, and rapid strep swab was negative today at [facility]. You will be notified in a few days if the culture comes back positive for strep, and appropriate antibiotics will be called in for you at that time. Your symptoms are likely due to a viral illness, which is not treated with antibiotics. Viral symptoms can be present for up to 7-10 days. Take Tylenol or ibuprofen for fever or pain, if able. Take the Zofran for nausea if needed. Take the Flonase to help with your congestion or postnasal drainage. Rest and stay hydrated. Follow up with your PCP in 7 days if symptoms are not improving. Go to the ER immediately if you have any difficulty breathing or swallowing. Your blood pressure was elevated above 120/80 today at Urgent Care. This puts you above the threshold for follow up. Please schedule a followup visit with your personal physician as soon as possible, for further evaluation and treatment. Even blood pressure exceeding 120/80 may indicate pre-hypertension. Prescriptions: New ondansetron 4 mg tablet,disintegrating 4 mg PO TID PRN (Reason: nausea and vomiting) Qty: 15 0RF fluticasone propionate [Flonase Allergy Relief] 50 mcg/actuation spray,suspension 2 spray intranasal DAILY PRN (Reason: nasal congestion) Qty: 15.8 0RF Rx Instructions: administer into each nostril albuterol sulfate 90 mcg/actuation HFA aerosol inhaler 2 inh inhalation Q4-6H PRN (Reason: shortness of breath or wheezing) Qty: 8.5 0RF No Action indapamide 2.5 mg tablet 2.5 mg PO DIRECTED potassium chloride 10 mEq tablet extended release 10 meq PO DAILY meclizine 25 mg tablet 25 mg PO TID PRN (Reason: dizziness) Qty: 20 0RF omeprazole 40 mg capsule,delayed release(DR/EC) 40 mg PO DAILY albuterol sulfate 90 mcg/actuation HFA aerosol inhaler 2 puff inhalation Q4-6H PRN (Reason: shortness of breath or wheezing) 30 Days Qty: 8.5 0RF fluticasone propionate 50 mcg/actuation spray,suspension 1 spray intranasal BID Qty: 16 5RF Rx Instructions: administer into each nostril ciprofloxacin HCl 500 mg tablet 500 mg PO Q12H 10 Days Qty: 20 0RF metronidazole 500 mg tablet 500 mg PO Q8H 10 Days Qty: 30 0RF hyoscyamine sulfate [Levsin] 0.125 mg tablet 0.125 mg PO QID PRN (Reason: abdominal discomfort) Qty: 20 0RF ferrous sulfate 325 mg (65 mg iron) tablet 325 mg PO DAILY Qty: 90 1RF glimepiride 2 mg tablet 2 mg PO QAM Qty: 90 1RF Rx Instructions: administer with breakfast escitalopram oxalate [Lexapro] 20 mg tablet 20 mg PO DAILY Qty: 30 5RF alprazolam [Xanax] 2 mg tablet 2 mg PO TID 30 Days Qty: 90 2RF atenolol 100 mg tablet 100 mg PO DAILY Qty: 30 5RF Follow-up/Referrals: Zoie,Adin Coon MD [Primary Care Provider] - Time of Disposition: 11:20
[2024-07-24 11:38] LABS: EDCOVIDSCREEN Negative (Negative); EDINFLUASCREEN Negative (Negative); EDINFLUBSCREEN Negative (Negative); EDSTREPNEGPOS1 Negative (Negative)
== END 2024-07-24 11:34 | disposition home or self-care (01) ==
PROVIDERS: Emergency Provider Nurse Practitioner; PCP Internal Medicine
DX: J06.9 Acute upper respiratory infection, unspecified (principal); Z20.822 Contact with and (suspected) exposure to COVID-19; J45.909 Unspecified asthma, uncomplicated; Z87.891 Personal history of nicotine dependence; I25.10 Atherosclerotic heart disease of native coronary artery without angina pectoris; I10 Essential (primary) hypertension; K21.9 Gastro-esophageal reflux disease without esophagitis; R73.03 Prediabetes; Z98.84 Bariatric surgery status; I25.2 Old myocardial infarction
CPT/HCPCS: 87426; 87804; 87880; 99213; G0463

== ENCOUNTER 2024-07-26 10:52 | Emergency (ER) | payer OTHER, SELFPAY ==
--- NOTE | ~2024-07-26 | XR_ITS ---
XR chest 2V Ordering provider: Sal Hong APRN History: 54 years Male with . sob, rib pain . Comparison: None. FINDINGS: MEDIASTINUM: The cardiac silhouette is not enlarged. LUNGS: No infiltrates, effusions or pneumothorax. OTHER: No free air under the diaphragm. IMPRESSION: No acute cardiopulmonary pathology. Reviewed, dictated and finalized at location A. [facility]
[2024-07-26 10:59] VITALS: BP 144/78; PULSE 55; RESP 20; TEMP 36.4; O2SAT 100
--- NOTE | 2024-07-26 11:04 | ED.URI ---
HPI - URI/Sore Throat General Chief Complaint: Upper Respiratory Infection Stated Complaint: SOB/Flank Pain Time Seen by Provider: 07/26/24 11:05 Source: patient Mode of arrival: ambulatory Limitations: no limitations History of Present Illness HPI Narrative: Carlos is a 54-year-old male patient presenting to the clinic today with complaints of shortness of breath and bilateral anterior rib pain. He reports he thinks that maybe his GERD. States he has been spitting up white sputum. Was seen in the [facility] 2 days ago and was diagnosed with a URI. Had COVID, influenza, and strep test done at that time-all testing was negative at that time. He reports the cough has improved however he still having shortness of breath and bilateral rib pain due to cough. They did not have x-ray on Wednesday when he was seen he is requesting an x-ray to be done today. Has been taking 40mg of omeprazole daily for his GERD. MD elicited complaint: sore throat and nasal congestion Related Data Home Medications Medication Instructions Recorded Confirmed indapamide 2.5 mg tablet 2.5 mg PO DIRECTED 06/09/23 07/26/24 potassium chloride 10 mEq 10 meq PO DAILY 06/09/23 07/26/24 tablet,extended release omeprazole 40 mg capsule,delayed 40 mg PO DAILY 04/22/24 07/26/24 release peg-electrolyte solution 420 gram ml 07/26/24 07/26/24 oral solution Allergies Allergy/AdvReac Type Severity Reaction Status Date / Time Iodinated Contrast Media Allergy Severe Anaphylaxis Verified 07/26/24 11:16 metformin Allergy Severe Stopped Verified 07/26/24 11:16 Breathing Sulfa (Sulfonamide Allergy Severe Anaphylaxis Verified 07/26/24 11:16 Antibiotics) sulfamethoxazole Allergy Severe Anaphylaxis Verified 07/26/24 11:16 famotidine Allergy Intermediate Hives Verified 07/26/24 11:16 losartan Allergy Intermediate SWLLEING Verified 07/26/24 11:16 LIP AND HIVES nebivolol Allergy Intermediate LIP Verified 07/26/24 11:16 SWELLING Quinolones Allergy Intermediate Nervousness Verified 07/26/24 11:16 valsartan Allergy Intermediate HIVES/SOB Verified 07/26/24 11:16 amlodipine Allergy Mild HIVES Verified 07/26/24 11:16 azithromycin Allergy Mild Nervousness Verified 07/26/24 11:16 pantoprazole Allergy Mild Hives Verified 07/26/24 11:16 spironolactone Allergy Mild RASH AND Verified 07/26/24 11:16 ITCHING trimethoprim Allergy Mild RASH Verified 07/26/24 11:16 morphine Allergy Unknown Verified 07/26/24 11:16 cephalexin AdvReac Mild Nervousness Verified 07/26/24 11:16 flavoxate AdvReac Mild Nervousness Verified 07/26/24 11:16 levofloxacin AdvReac Mild Nervousness Verified 07/26/24 11:16 lidocaine AdvReac Mild Nervousness Verified 07/26/24 11:16 lisinopril AdvReac Mild Nervousness Verified 07/26/24 11:16 nitrofurantoin AdvReac Mild Nervousness Verified 07/26/24 11:16 oxycodone AdvReac Mild Nervousness Verified 07/26/24 11:16 paroxetine AdvReac Mild Nervousness Verified 07/26/24 11:16 Review of Systems Review of Systems: Pertinent positives per HPI. Patient denies any fever, chills, rash, headache, visual changes, dizziness, chest pain, palpitations, nausea, vomiting, diarrhea, constipation, abdominal pain, or any urinary issues. [facility] Past Medical History Medical History Allergic rhinitis Anxiety Asthma CAD (coronary artery disease) history [place] Chronic post-traumatic stress disorder (PTSD) Chronic sinusitis Concussion Depression GERD (gastroesophageal reflux disease) HTN (hypertension) Prediabetes Sleep apnea Surgical History Surgical History H/O gastric bypass History of cardiac cath History of colonoscopy Hx of cholecystectomy Family History Family History Grandparent Family history of obesity Hypertension Diabetes mellitus Mother Depression Patient's mother is in good health Family history of mental disorder Father Hypertension Patient's father is in good health Family history of alcoholism Cerebrovascular accident Sibling Patient's sister is in good health Patient's brother is in good health Father Cerebrovascular accident Alcoholism Hypertension Heart disease Mother Family history of malignant neoplasm Depression Hypertension Other Family history of cardiovascular disease Social History Social History Smoking status: Former smoker Smoking end date: 09/13/95 Alcohol intake: former Substance use: never Substance use type: opiates Lack of Transportation: No Lack of Food: Never True Current Housing: I Have Housing Concerned About Future Housing: No Difficulty Paying Gas/Electric Bills: No Difficulty Paying for Meds: No Currently Unemployed: No Education: Master's Degree or Higher Difficulty w/ Childcare or Family Care: No Living arrangements: alone Occupation/Education: occupation Gender identity (if verbalized by the patient): Male Sexual Orientation (if Verbalized by the Patient): Straight or Heterosexual Spiritual care concerns: No Comments At the time of my signature, I reviewed and agree with the nursing past medical, surgical, social, and family history. There is no relevant family history pertinent to the patient complaint. Exam Narrative: General: Well-developed, well nourished, in no apparent distress Head: Normocephalic, atraumatic Eyes: Pupils equally round and reactive to light bilaterally, EOM intact, sclera and conjunctive clear, no discharge, lids normal Ears: TMs intact and clear, ear canals clear, no drainage, grossly hearing normal. Nose: Nares patent, no discharge, no inflammation, no sinus tenderness. Mouth: Oral pharynx without lesions or masses, good dentition, MMM. Neck: Supple, trachea midline, no enlargement of anterior or posterior cervical nodes, no thyroid masses or goiter palpable. Cardio: Regular rate and rhythm, s1 and s2 normal, no murmur appreciated. Resp: Clear to auscultation bilaterally, no rhonchi, rales, wheezing or rubs Course Course Emergency Course: Portions of this record may have been created with voice recognition software. Level of Care: Express Care Visit Vital Signs Vital signs: Vital Signs Temperature 36.4 C L 07/26/24 10:59 Pulse Rate 55 L 07/26/24 10:59 Respiratory Rate 20 07/26/24 10:59 Blood Pressure 144/78 H 07/26/24 10:59 Pulse Oximetry 100 07/26/24 10:59 Oxygen Delivery Room Air 07/26/24 10:59 Temperature 36.4 C L 07/26/24 10:59 Pulse Rate 55 L 07/26/24 10:59 Respiratory Rate 20 07/26/24 10:59 Blood Pressure 144/78 H 07/26/24 10:59 Pulse Oximetry 100 07/26/24 10:59 Oxygen Delivery Room Air 07/26/24 10:59 Vital signs reviewed MDM - URI/Sore Throat MDM Narrative Medical decision making narrative: At the time of visit patient is resting comfortably on the exam table. Patient appears to be nontoxic. EKG:EKG shows sinus bradycardia without ST elevation, depression, or T-wave inversion. Heart rate is 52 beats per minute. Diagnostics: Chest x-ray is negative in the clinic today. Plan: I suspect patient has shortness of breath, GERD, chest wall/rib pain. EKG is reassuring in chest x-rays negative for any acute cardiopulmonary process. Wells criteria for PE is 0. Low risk-1.3% in ED population. If symptoms worsen- recommend going to the ED immediately for further evaluation. Supportive measures were discussed with the patient and they voiced understanding discharge instructions and agrees to treatment plan. Return precautions reviewed Differential Diagnosis Differential diagnosis: Likely upper respiratory infection, otitis media, sinusitis, viral infection, bronchitis, influenza, pharyngitis and other (COVID, GERD, chest wall pain, costochondritis) Imaging Data Radiologist's impression: ITS Impressions Chest X-Ray 07/26/24 11:15 IMPRESSION: No acute cardiopulmonary pathology. ECG Data EKG #1: Attestation: I personally reviewed and interpreted this ECG as follows: ECG completion date: 07/26/24 ECG completion time: 11:38 Interpretation: EKG shows sinus bradycardia with heart rate of 52 beats per minute. No ST elevation, depression, or T-wave inversion noted. MT interval is 160 milliseconds, QRS duration is 107 milliseconds, QT-QTC is 431-411 milliseconds, P-R-T axis is -1 19 and 8 Discharge Plan Discharge Clinical Impression: Shortness of breath, Anterior chest wall pain GERD (gastroesophageal reflux disease) Qualifiers: Esophagitis presence: without esophagitis Qualified Code(s): K21.9 - Gastro-esophageal reflux disease without esophagitis Patient Disposition: Home, Self-Care Condition: Stable Instructions: Antibiotic Form, GERD (Gastroesophageal Reflux Disease) (ED), Chest Wall Pain (ED), Shortness of Breath (ED) Additional Instructions: Chest x-rays negative for any sign of acute cardiopulmonary process. EKG is reassuring in the clinic today. Continue current medications as prescribed Increase fluids and stay well hydrated Tylenol/motrin for pain/fever Flonase and OTC antihistamines as directed Vicks vapor rub to open sinuses Sinus rinses for congestion Avoid eating spicy or fatty foods, chocolate, or drinking caffeine. Avoid foods that cause you to feel bloated. Lose weight/exercise Stay upright for at least 30 minutes after eating. May use tums or Maalox for immediate relief Cepacol spray, cough drops, throat lozenges, warm tea with honey/lemon, gargle salt water to soothe throat Go to the ED if you develop a worsening in your condition- high fever not controlled by Tylenol or Motrin, dehydration, weakness, lethargy, shortness of breath, or chest pain. Follow up with your PCP in 3-5 days if symptoms persist. Prescriptions: No Action indapamide 2.5 mg tablet 2.5 mg PO DIRECTED potassium chloride 10 mEq tablet extended release 10 meq PO DAILY meclizine 25 mg tablet 25 mg PO TID PRN (Reason: dizziness) Qty: 20 0RF omeprazole 40 mg capsule,delayed release(DR/EC) 40 mg PO DAILY ondansetron 4 mg tablet,disintegrating 4 mg PO TID PRN (Reason: nausea and vomiting) Qty: 15 0RF fluticasone propionate [Flonase Allergy Relief] 50 mcg/actuation spray,suspension 2 spray intranasal DAILY PRN (Reason: nasal congestion) Qty: 15.8 0RF Rx Instructions: administer into each nostril albuterol sulfate 90 mcg/actuation HFA aerosol inhaler 2 puff inhalation Q4-6H PRN (Reason: shortness of breath or wheezing) 30 Days Qty: 8.5 0RF peg-electrolyte soln 420 gram recon soln fluticasone propionate 50 mcg/actuation spray,suspension 1 spray intranasal BID Qty: 16 5RF Rx Instructions: administer into each nostril ciprofloxacin HCl 500 mg tablet 500 mg PO Q12H 10 Days Qty: 20 0RF metronidazole 500 mg tablet 500 mg PO Q8H 10 Days Qty: 30 0RF hyoscyamine sulfate [Levsin] 0.125 mg tablet 0.125 mg PO QID PRN (Reason: abdominal discomfort) Qty: 20 0RF ferrous sulfate 325 mg (65 mg iron) tablet 325 mg PO DAILY Qty: 90 1RF glimepiride 2 mg tablet 2 mg PO QAM Qty: 90 1RF Rx Instructions: administer with breakfast escitalopram oxalate [Lexapro] 20 mg tablet 20 mg PO DAILY Qty: 30 5RF alprazolam [Xanax] 2 mg tablet 2 mg PO TID 30 Days Qty: 90 2RF atenolol 100 mg tablet 100 mg PO DAILY Qty: 30 5RF Follow-up/Referrals: PHYSICIAN,CERTIFIED ATHLETIC TRAINER [Primary Care Provider] - Time of Disposition: 11:50 Quality NIHSS Nursing Documentation ED NIHSS nursing documentation: reviewed/agree
--- NOTE | 2024-07-26 11:19 | ECG_ITS ---
Test Date: 2024-07-26 11:38:41 Measurements Intervals [place] Rate: 52 P: -1 NE: 160 QRS: 19 QRSD: 107 T: 8 QT: 431 QTc: 403 Interpretive Statements SINUS BRADYCARDIA EARLY PRECORDIAL R/S TRANSITION BORDERLINE T WAVE ABNORMALITY- INFERIOR LEADS BORDERLINE ECG Compared to ECG 04/09/2024 14:42:44 HEART RATE HAS DECREASED Electronically Signed On 07-26-2024 12:48:11 [employer] by Yonathan Ross D.O.
== END 2024-07-26 11:55 | disposition home or self-care (01) ==
PROVIDERS: Emergency Provider Nurse Practitioner Family
DX: R06.02 Shortness of breath (principal); R07.89 Other chest pain; K21.9 Gastro-esophageal reflux disease without esophagitis; Z87.891 Personal history of nicotine dependence; I25.10 Atherosclerotic heart disease of native coronary artery without angina pectoris; I25.2 Old myocardial infarction; I10 Essential (primary) hypertension; R73.03 Prediabetes; J45.909 Unspecified asthma, uncomplicated; Z98.84 Bariatric surgery status
CPT/HCPCS: 71046; 93005; 99213; G0463

== ENCOUNTER 2024-07-26 17:30 | Emergency (ER) | payer OTHER, SELFPAY ==
--- NOTE | 2024-07-26 17:32 | ED_ITS ---
HPI - URI/Sore Throat General Chief Complaint: Upper Respiratory Infection Stated Complaint: Sinus Time Seen by Provider: 07/26/24 17:31 Source: patient Mode of arrival: ambulatory Limitations: no limitations History of Present Illness HPI Narrative: Carlos is a 54-year-old male patient presenting to the clinic today with same complaints as earlier today. He went home today and did a COVID test and thinks he may have saw a faint line and now he is requesting another COVID test in the clinic today. Chest x-ray was performed earlier and was negative any had EKG done that showed this bradycardia without any ST elevation or depression. Related Data Home Medications Medication Instructions Recorded Confirmed indapamide 2.5 mg tablet 2.5 mg PO DIRECTED 06/09/23 07/26/24 potassium chloride 10 mEq 10 meq PO DAILY 06/09/23 07/26/24 tablet,extended release omeprazole 40 mg capsule,delayed 40 mg PO DAILY 04/22/24 07/26/24 release peg-electrolyte solution 420 gram ml 07/26/24 07/26/24 oral solution Allergies Allergy/AdvReac Type Severity Reaction Status Date / Time Iodinated Contrast Media Allergy Severe Anaphylaxis Verified 07/26/24 17:50 metformin Allergy Severe Stopped Verified 07/26/24 17:50 Breathing Sulfa (Sulfonamide Allergy Severe Anaphylaxis Verified 07/26/24 17:50 Antibiotics) sulfamethoxazole Allergy Severe Anaphylaxis Verified 07/26/24 17:50 famotidine Allergy Intermediate Hives Verified 07/26/24 17:50 losartan Allergy Intermediate SWLLEING Verified 07/26/24 17:50 LIP AND HIVES nebivolol Allergy Intermediate LIP Verified 07/26/24 17:50 SWELLING Quinolones Allergy Intermediate Nervousness Verified 07/26/24 17:50 valsartan Allergy Intermediate HIVES/SOB Verified 07/26/24 17:50 amlodipine Allergy Mild HIVES Verified 07/26/24 17:50 azithromycin Allergy Mild Nervousness Verified 07/26/24 17:50 pantoprazole Allergy Mild Hives Verified 07/26/24 17:50 spironolactone Allergy Mild RASH AND Verified 07/26/24 17:50 ITCHING trimethoprim Allergy Mild RASH Verified 07/26/24 17:50 morphine Allergy Unknown Verified 07/26/24 17:50 cephalexin AdvReac Mild Nervousness Verified 07/26/24 17:50 flavoxate AdvReac Mild Nervousness Verified 07/26/24 17:50 levofloxacin AdvReac Mild Nervousness Verified 07/26/24 17:50 lidocaine AdvReac Mild Nervousness Verified 07/26/24 17:50 lisinopril AdvReac Mild Nervousness Verified 07/26/24 17:50 nitrofurantoin AdvReac Mild Nervousness Verified 07/26/24 17:50 oxycodone AdvReac Mild Nervousness Verified 07/26/24 17:50 paroxetine AdvReac Mild Nervousness Verified 07/26/24 17:50 Review of Systems Review of Systems: Pertinent positives per HPI. Patient denies any fever, chills, rash, headache, visual changes, dizziness, sore throat, chest pain, palpitations, nausea, vomiting, diarrhea, constipation, abdominal pain, or any urinary issues. [facility] Past Medical History Medical History Allergic rhinitis Anxiety Asthma CAD (coronary artery disease) history [place] Chronic post-traumatic stress disorder (PTSD) Chronic sinusitis Concussion Depression GERD (gastroesophageal reflux disease) HTN (hypertension) Prediabetes Sleep apnea Surgical History Surgical History H/O gastric bypass History of cardiac cath History of colonoscopy Hx of cholecystectomy Family History Family History Grandparent Family history of obesity Hypertension Diabetes mellitus Mother Depression Patient's mother is in good health Family history of mental disorder Father Hypertension Patient's father is in good health Family history of alcoholism Cerebrovascular accident Sibling Patient's sister is in good health Patient's brother is in good health Father Cerebrovascular accident Alcoholism Hypertension Heart disease Mother Family history of malignant neoplasm Depression Hypertension Other Family history of cardiovascular disease Social History Social History Smoking status: Former smoker Smoking end date: 09/13/95 Alcohol intake: former Substance use: never Substance use type: opiates Lack of Transportation: No Lack of Food: Never True Current Housing: I Have Housing Concerned About Future Housing: No Difficulty Paying Gas/Electric Bills: No Difficulty Paying for Meds: No Currently Unemployed: No Education: Master's Degree or Higher Difficulty w/ Childcare or Family Care: No Living arrangements: alone Occupation/Education: occupation Gender identity (if verbalized by the patient): Male Sexual Orientation (if Verbalized by the Patient): Straight or Heterosexual Spiritual care concerns: No Comments At the time of my signature, I reviewed and agree with the nursing past medical, surgical, social, and family history. There is no relevant family history pertinent to the patient complaint. Exam Narrative: General: Well-developed, obese, in no apparent distress Head: Normocephalic, atraumatic Eyes: Pupils equally round and reactive to light bilaterally, EOM intact, sclera and conjunctive clear, no discharge, lids normal Ears: TMs intact and clear, ear canals clear, no drainage, grossly hearing normal. Nose: Nares patent, no discharge, no inflammation, no sinus tenderness. Mouth: Oropharynx without lesions or masses, good dentition, MMM. Neck: Supple, trachea midline, no enlargement of anterior or posterior cervical nodes, no thyroid masses or goiter palpable. Cardio: Regular rate and rhythm, s1 and s2 normal, no murmur appreciated. Resp: Clear to auscultation bilaterally anteriorly and posteriorly, no rhonchi, rales, wheezing or rubs Course Course Emergency Course: Portions of this record may have been created with voice recognition software. Level of Care: Express Care Visit Vital Signs Vital signs: Vital Signs Temperature 36.3 C L 07/26/24 17:40 Pulse Rate 53 L 07/26/24 17:40 Respiratory Rate 20 07/26/24 17:40 Blood Pressure 155/73 H 07/26/24 17:40 Pulse Oximetry 99 07/26/24 17:40 Oxygen Delivery Room Air 07/26/24 17:40 Temperature 36.3 C L 07/26/24 17:40 Pulse Rate 53 L 07/26/24 17:40 Respiratory Rate 20 07/26/24 17:40 Blood Pressure 155/73 H 07/26/24 17:40 Pulse Oximetry 99 07/26/24 17:40 Oxygen Delivery Room Air 07/26/24 17:40 Vital signs reviewed MDM - URI/Sore Throat MDM Narrative Medical decision making narrative: At the time of visit patient is resting comfortably on the exam table. Patient appears to be nontoxic. Labs: COVID test was negative in the clinic today. Plan: Supportive measures were discussed with the patient and they voiced understanding discharge instructions and agrees to treatment plan. Return precautions reviewed Differential Diagnosis Differential diagnosis: Likely upper respiratory infection, otitis media, sinusitis, viral infection, bronchitis, influenza, pharyngitis and other (COVID) Lab Data Labs: Lab Results 07/26/24 Range/Units 17:39 POC SARS CoV-2 Ag Pending Discharge Plan Discharge Clinical Impression: Anxiety about health Patient Disposition: Home, Self-Care Condition: Stable Instructions: Antibiotic Form, Anxiety (ED) Additional Instructions: Covid testing is negative in the clinic today. Increase fluids and stay well hydrated Tylenol/motrin for pain/fever Flonase and OTC antihistamines as directed Vicks vapor rub to open sinuses Sinus rinses for congestion Cepacol spray, cough drops, throat lozenges, warm tea with honey/lemon, gargle salt water to soothe throat BRAT diet for diarrhea Clear liquids x 24 hours then advance as tolerated for nausea/vomiting Go to the ED if you develop a worsening in your condition- high fever not controlled by Tylenol or Motrin, dehydration, weakness, lethargy, shortness of breath, or chest pain. Follow up with your PCP in 3-5 days if symptoms persist. Prescriptions: No Action indapamide 2.5 mg tablet 2.5 mg PO DIRECTED potassium chloride 10 mEq tablet extended release 10 meq PO DAILY meclizine 25 mg tablet 25 mg PO TID PRN (Reason: dizziness) Qty: 20 0RF omeprazole 40 mg capsule,delayed release(DR/EC) 40 mg PO DAILY ondansetron 4 mg tablet,disintegrating 4 mg PO TID PRN (Reason: nausea and vomiting) Qty: 15 0RF fluticasone propionate [Flonase Allergy Relief] 50 mcg/actuation spray,suspension 2 spray intranasal DAILY PRN (Reason: nasal congestion) Qty: 15.8 0RF Rx Instructions: administer into each nostril albuterol sulfate 90 mcg/actuation HFA aerosol inhaler 2 puff inhalation Q4-6H PRN (Reason: shortness of breath or wheezing) 30 Days Qty: 8.5 0RF peg-electrolyte soln 420 gram recon soln fluticasone propionate 50 mcg/actuation spray,suspension 1 spray intranasal BID Qty: 16 5RF Rx Instructions: administer into each nostril ciprofloxacin HCl 500 mg tablet 500 mg PO Q12H 10 Days Qty: 20 0RF metronidazole 500 mg tablet 500 mg PO Q8H 10 Days Qty: 30 0RF hyoscyamine sulfate [Levsin] 0.125 mg tablet 0.125 mg PO QID PRN (Reason: abdominal discomfort) Qty: 20 0RF ferrous sulfate 325 mg (65 mg iron) tablet 325 mg PO DAILY Qty: 90 1RF glimepiride 2 mg tablet 2 mg PO QAM Qty: 90 1RF Rx Instructions: administer with breakfast escitalopram oxalate [Lexapro] 20 mg tablet 20 mg PO DAILY Qty: 30 5RF alprazolam [Xanax] 2 mg tablet 2 mg PO TID 30 Days Qty: 90 2RF atenolol 100 mg tablet 100 mg PO DAILY Qty: 30 5RF Follow-up/Referrals: UNKNOWN,DOCTOR [Non-Staff] - Time of Disposition: 17:52 Quality NIHSS Nursing Documentation ED NIHSS nursing documentation: reviewed/agree
[2024-07-26 17:40] VITALS: BP 155/73; PULSE 53; RESP 20; TEMP 36.3; O2SAT 99
[2024-07-26 17:55] LABS: EDCOVIDSCREEN Negative (Negative)
== END 2024-07-26 18:00 | disposition home or self-care (01) ==
PROVIDERS: Emergency Provider Nurse Practitioner Family
DX: F41.9 Anxiety disorder, unspecified (principal); Z20.822 Contact with and (suspected) exposure to COVID-19; Z87.891 Personal history of nicotine dependence; I25.10 Atherosclerotic heart disease of native coronary artery without angina pectoris; I10 Essential (primary) hypertension; R73.03 Prediabetes; K21.9 Gastro-esophageal reflux disease without esophagitis; J45.909 Unspecified asthma, uncomplicated; I25.2 Old myocardial infarction; Z98.84 Bariatric surgery status
CPT/HCPCS: 87426; 99212; G0463

== ENCOUNTER 2024-08-18 18:18 | Emergency (ER) | payer OTHER, SELFPAY ==
[2024-08-18 18:24] VITALS: BP 188/90; PULSE 77; RESP 18; TEMP 36.1; O2SAT 100
--- NOTE | 2024-08-18 19:38 | ED.URI ---
HPI - URI/Sore Throat General Chief Complaint: Upper Respiratory Infection Stated Complaint: cold symptoms, diarrhea Time Seen by Provider: 08/18/24 19:47 Source: patient, RN notes reviewed and old records reviewed Mode of arrival: ambulatory Limitations: no limitations History of Present Illness HPI Narrative: Patient presents with complaints of 5 days of runny nose, scratchy voice, sore throat. He denies any fever, chills, sweats. He does report occasional cough. He reports decreased sense of taste and smell. He is not in any distress. He reports he has been taking [id number] medications without any relief. Related Data Home Medications Medication Instructions Recorded Confirmed indapamide 2.5 mg tablet 2.5 mg PO DIRECTED 06/09/23 07/26/24 potassium chloride 10 mEq 10 meq PO DAILY 06/09/23 07/26/24 tablet,extended release omeprazole 40 mg capsule,delayed 40 mg PO DAILY 04/22/24 07/26/24 release fluticasone propionate 50 2 spray intranasal DAILY 08/18/24 mcg/actuation nasal spray,suspension (Flonase Allergy Relief) Allergies Allergy/AdvReac Type Severity Reaction Status Date / Time Iodinated Contrast Media Allergy Severe Anaphylaxis Verified 08/18/24 18:26 metformin Allergy Severe Stopped Verified 08/18/24 18:26 Breathing Sulfa (Sulfonamide Allergy Severe Anaphylaxis Verified 08/18/24 18:26 Antibiotics) sulfamethoxazole Allergy Severe Anaphylaxis Verified 08/18/24 18:26 famotidine Allergy Intermediate Hives Verified 08/18/24 18:26 losartan Allergy Intermediate SWLLEING Verified 08/18/24 18:26 LIP AND HIVES nebivolol Allergy Intermediate LIP Verified 08/18/24 18:26 SWELLING Quinolones Allergy Intermediate Nervousness Verified 08/18/24 18:26 valsartan Allergy Intermediate HIVES/SOB Verified 08/18/24 18:26 amlodipine Allergy Mild HIVES Verified 08/18/24 18:26 azithromycin Allergy Mild Nervousness Verified 08/18/24 18:26 pantoprazole Allergy Mild Hives Verified 08/18/24 18:26 spironolactone Allergy Mild RASH AND Verified 08/18/24 18:26 ITCHING trimethoprim Allergy Mild RASH Verified 08/18/24 18:26 morphine Allergy Unknown Verified 08/18/24 18:26 cephalexin AdvReac Mild Nervousness Verified 08/18/24 18:26 flavoxate AdvReac Mild Nervousness Verified 08/18/24 18:26 levofloxacin AdvReac Mild Nervousness Verified 08/18/24 18:26 lidocaine AdvReac Mild Nervousness Verified 08/18/24 18:26 lisinopril AdvReac Mild Nervousness Verified 08/18/24 18:26 nitrofurantoin AdvReac Mild Nervousness Verified 08/18/24 18:26 oxycodone AdvReac Mild Nervousness Verified 08/18/24 18:26 paroxetine AdvReac Mild Nervousness Verified 08/18/24 18:26 Review of Systems Review of Systems: All systems reviewed & are unremarkable except as noted in HPI and below Constitutional: Constitutional: Reports no additional constitutional complaints ENT: Reports system reviewed and no additional complaints, except as documented and Reports as per HPI Cardiovascular: Cardiovascular: Reports as per HPI and Reports no additional cardiovascular complaints Respiratory: Respiratory: Reports as per HPI and Reports no additional respiratory complaints Gastrointestinal: Gastrointestinal: Reports no additional gastrointestinal complaints PMFSH Past Medical History Medical History Allergic rhinitis Anxiety Asthma CAD (coronary artery disease) history MS Chronic post-traumatic stress disorder (PTSD) Chronic sinusitis Concussion Depression GERD (gastroesophageal reflux disease) HTN (hypertension) Prediabetes Sleep apnea Surgical History Surgical History H/O gastric bypass History of cardiac cath History of colonoscopy Hx of cholecystectomy Family History Family History Grandparent Family history of obesity Hypertension Diabetes mellitus Mother Depression Patient's mother is in good health Family history of mental disorder Father Hypertension Patient's father is in good health Family history of alcoholism Cerebrovascular accident Sibling Patient's sister is in good health Patient's brother is in good health Father Cerebrovascular accident Alcoholism Hypertension Heart disease Mother Family history of malignant neoplasm Depression Hypertension Other Family history of cardiovascular disease Social History Social History Smoking status: Former smoker Smoking end date: 09/13/95 Alcohol intake: former Substance use: never Substance use type: opiates Lack of Transportation: No Lack of Food: Never True Current Housing: I Have Housing Concerned About Future Housing: No Difficulty Paying Gas/Electric Bills: No Difficulty Paying for Meds: No Currently Unemployed: No Education: Master's Degree or Higher Difficulty w/ Childcare or Family Care: No Living arrangements: alone Occupation/Education: occupation Gender identity (if verbalized by the patient): Male Sexual Orientation (if Verbalized by the Patient): Straight or Heterosexual Spiritual care concerns: No Comments At the time of my signature, I reviewed and agree with the nursing past medical, surgical, social, and family history. There is no relevant family history pertinent to the patient complaint. Exam Const: General: cooperative, no acute distress, alert and awake Orientation/consciousness: oriented to person, oriented to place and oriented to time HENMT: Head: normal to inspection Ears: TM's normal bilaterally Face/Nose/Sinus: Nasal discharge present clear Throat: postnasal drainage Resp: Effort & Inspection: normal respiratory effort and able to speak in complete sentences Auscultation: clear to auscultation bilaterally, no crackles, no rales, no rhonchi and no wheezes Cardio: Palpation: normal PMI Rate: regular rate Rhythm: regular rhythm Heart sounds: S1 normal heart sound present and S2 normal heart sound present Neuro: General: oriented to person, oriented to place and oriented to time Cranial nerves: Yes CN's II-XII intact bilaterally Psych: Appearance: grossly normal Thought process: Normal thought process present Insight: Good insight present (Psych) Judgement: Good judgement present (Psych) Course Course Level of Care: Express Care Visit Vital Signs Vital signs: Vital Signs Temperature 97 F L 08/18/24 18:24 Pulse Rate 77 08/18/24 18:24 Respiratory Rate 18 08/18/24 18:24 Blood Pressure 188/90 H 08/18/24 18:24 Pulse Oximetry 100 08/18/24 18:24 Oxygen Delivery Room Air 08/18/24 18:24 Temperature 97 F L 08/18/24 18:24 Pulse Rate 77 08/18/24 18:24 Respiratory Rate 18 08/18/24 18:24 Blood Pressure 188/90 H 08/18/24 18:24 Pulse Oximetry 100 08/18/24 18:24 Oxygen Delivery Room Air 08/18/24 18:24 Reviewed MDM - URI/Sore Throat MDM Narrative Medical decision making narrative: Patient with reassuring physical exam. States that no [id number] medications are working for him. Will give him prescription for 50 mg prednisone burst to treat his current symptoms. He is advised to follow-up primary care provider. Emergency department for new or worse symptoms. Discharge instructions reviewed with patient, as well as provided in writing per nursing staff. The instructions also include specific and strict return/GO TO THE ER as well as f/u information. All questions have been answered, and the patient deny any further questions with discharge and discharge plan. Some parts of this dictation were generated by voice recognition software and may contain typographical and/or grammatical inaccuracies. Differential Diagnosis Differential diagnosis: Likely upper respiratory infection, otitis media, bronchitis and pharyngitis Medical Records Attestation: I reviewed the patient's medical records. Lab Data Attestation: I reviewed the patient's lab results. Labs: Lab Results 08/18/24 Range/Units 20:12 POC SARS CoV-2 Ag Negative (Negative) Discharge Plan Discharge Clinical Impression: URI (upper respiratory infection) Patient Disposition: Home, Self-Care Condition: Stable Instructions: Antibiotic Form, Cold Symptoms (ED) Additional Instructions: Take medications as prescribed. Follow-up with primary care provider. Emergency department for any new or worse symptoms. Carefully monitor blood glucose while taking prednisone Patient Language: [place]er Prescriptions: New fluticasone propionate [Flonase Allergy Relief] 50 mcg/actuation spray,suspension 1 spray intranasal BID Qty: 16 0RF Rx Instructions: administer into each nostril prednisone 50 mg tablet 50 mg PO DAILY Qty: 5 0RF No Action indapamide 2.5 mg tablet 2.5 mg PO DIRECTED potassium chloride 10 mEq tablet extended release 10 meq PO DAILY omeprazole 40 mg capsule,delayed release(DR/EC) 40 mg PO DAILY albuterol sulfate 90 mcg/actuation HFA aerosol inhaler 2 puff inhalation Q4-6H PRN (Reason: shortness of breath or wheezing) 30 Days Qty: 8.5 0RF fluticasone propionate [Flonase Allergy Relief] 50 mcg/actuation spray,suspension 2 spray intranasal DAILY Rx Instructions: administer into each nostril ferrous sulfate 325 mg (65 mg iron) tablet 325 mg PO DAILY Qty: 90 1RF glimepiride 2 mg tablet 2 mg PO QAM Qty: 90 1RF Rx Instructions: administer with breakfast escitalopram oxalate [Lexapro] 20 mg tablet 20 mg PO DAILY Qty: 30 5RF alprazolam [Xanax] 2 mg tablet 2 mg PO TID 30 Days Qty: 90 2RF atenolol 100 mg tablet 100 mg PO DAILY Qty: 30 5RF Follow-up/Referrals: PHYSICIAN,WHEEL BLOCKER [Primary Care Provider] - 1 Week Stand Alone Forms: Work/School Release IP Time of Disposition: 19:54
[2024-08-18 20:16] LABS: EDCOVIDSCREEN Negative (Negative)
== END 2024-08-18 20:15 | disposition home or self-care (01) ==
PROVIDERS: Emergency Provider Nurse Practitioner Family
DX: J06.9 Acute upper respiratory infection, unspecified (principal); Z20.822 Contact with and (suspected) exposure to COVID-19; Z87.891 Personal history of nicotine dependence; I25.10 Atherosclerotic heart disease of native coronary artery without angina pectoris; I10 Essential (primary) hypertension; R73.03 Prediabetes; K21.9 Gastro-esophageal reflux disease without esophagitis; J45.909 Unspecified asthma, uncomplicated; I25.2 Old myocardial infarction; Z98.84 Bariatric surgery status
CPT/HCPCS: 87426; 99213; G0463

== ENCOUNTER 2024-08-23 06:32 | Emergency (ER) | payer OTHER, SELFPAY ==
--- NOTE | ~2024-08-23 | XR_ITS ---
XR chest 1V portable Ordering provider: Dayana Zimmer MD History: 54 years Male with . cough . Comparison: July 26, 2024 FINDINGS: MEDIASTINUM: The cardiac silhouette is slightly enlarged. LUNGS: No effusions or pneumothorax. Prominent bronchovascular markings with Bilateral interstitial c hanges seen in the lower lobes and perihilar area. OTHER: No free air under the diaphragm. IMPRESSION: Interstitial thickening in the left perihilar and both lower lobe areas which may indicate pneumoniti s. Follow-up and clinical correlation advised. Reviewed, dictated and finalized at location A. GATION SERVICES MANAGER IMPRESSION: Interstitial thickening in the left perihilar and both lower lobe areas which m ay indicate pneumonitis. Follow-up and clinical correlation advised.
[2024-08-23 06:36] VITALS: BP 174/87; PULSE 61; RESP 13; TEMP 36.4; O2SAT 100
--- NOTE | 2024-08-23 07:32 | ED_ITS ---
HPI - General Adult General Chief complaint: Upper Respiratory Infection Stated complaint: uri Time Seen by Provider: 08/23/24 07:09 Source: patient Mode of arrival: ambulatory Limitations: no limitations History of Present Illness HPI narrative: 54 years old white male drove himself to the emergency room complaining of upper respiratory infection sign including sore throat, runny nose, postnasal discharge, sinus tenderness started August 13, was seen at urgent care on August 18 without improvement patient believed that his symptoms getting worse. Currently complaining of left lower quadrant pain which he believes that when he takes steroid will trigger his diverticulitis. Patient declined any blood workup or any imaging at this time and would like to get chest x-ray and COVID test although he tested negative on August 18. Patient denies any fever, chills, nausea, vomiting, chest pain or shortness of breath. Patient declined amoxicillin or Augmentin or Levaquin because he was so strong for him. He is okay with Cipro and Flagyl Related Data Home Medications ?Medication ?Instructions ?Recorded ?Confirmed ?Last Taken ?Type indapamide 2.5 mg tablet 2.5 mg PO DIRECTED 06/09/23 07/26/24 08/18/24 History potassium chloride 10 mEq 10 meq PO DAILY 06/09/23 07/26/24 08/18/24 History tablet,extended release omeprazole 40 mg capsule,delayed 40 mg PO DAILY 04/22/24 07/26/24 08/18/24 History release fluticasone propionate 50 2 spray intranasal DAILY 08/18/24 08/18/24 History mcg/actuation nasal spray,suspension (Flonase Allergy Relief) Allergies Allergy/AdvReac Type Severity Reaction Status Date / Time Iodinated Contrast Media Allergy Severe Anaphylaxis Verified 08/18/24 18:26 metformin Allergy Severe Stopped Verified 08/18/24 18:26 Breathing Sulfa (Sulfonamide Allergy Severe Anaphylaxis Verified 08/18/24 18:26 Antibiotics) sulfamethoxazole Allergy Severe Anaphylaxis Verified 08/18/24 18:26 famotidine Allergy Intermediate Hives Verified 08/18/24 18:26 losartan Allergy Intermediate SWLLEING Verified 08/18/24 18:26 LIP AND HIVES nebivolol Allergy Intermediate LIP Verified 08/18/24 18:26 SWELLING Quinolones Allergy Intermediate Nervousness Verified 08/18/24 18:26 valsartan Allergy Intermediate HIVES/SOB Verified 08/18/24 18:26 amlodipine Allergy Mild HIVES Verified 08/18/24 18:26 azithromycin Allergy Mild Nervousness Verified 08/18/24 18:26 pantoprazole Allergy Mild Hives Verified 08/18/24 18:26 spironolactone Allergy Mild RASH AND Verified 08/18/24 18:26 ITCHING trimethoprim Allergy Mild RASH Verified 08/18/24 18:26 morphine Allergy Unknown Verified 08/18/24 18:26 cephalexin AdvReac Mild Nervousness Verified 08/18/24 18:26 flavoxate AdvReac Mild Nervousness Verified 08/18/24 18:26 levofloxacin AdvReac Mild Nervousness Verified 08/18/24 18:26 lidocaine AdvReac Mild Nervousness Verified 08/18/24 18:26 lisinopril AdvReac Mild Nervousness Verified 08/18/24 18:26 nitrofurantoin AdvReac Mild Nervousness Verified 08/18/24 18:26 oxycodone AdvReac Mild Nervousness Verified 08/18/24 18:26 paroxetine AdvReac Mild Nervousness Verified 08/18/24 18:26 Review of Systems Review of Systems: All systems reviewed & are unremarkable except as noted in HPI and below PMFSH Past Medical History Medical History Prediabetes Allergic rhinitis Chronic sinusitis Chronic post-traumatic stress disorder (PTSD) Anxiety Depression GERD (gastroesophageal reflux disease) Sleep apnea Asthma HTN (hypertension) CAD (coronary artery disease) history AR Concussion Surgical History Surgical History H/O gastric bypass Hx of cholecystectomy History of cardiac cath History of colonoscopy Family History Family History Grandparent Family history of obesity Hypertension Diabetes mellitus Mother Depression Patient's mother is in good health Family history of mental disorder Father Hypertension Patient's father is in good health Family history of alcoholism Cerebrovascular accident Sibling Patient's sister is in good health Patient's brother is in good health Father Cerebrovascular accident Alcoholism Hypertension Heart disease Mother Family history of malignant neoplasm Depression Hypertension Other Family history of cardiovascular disease Social History Social History Smoking status: Former smoker Smoking end date: 09/13/95 Alcohol intake: former Substance use: never Substance use type: opiates Lack of Transportation: No Lack of Food: Never True Current Housing: I Have Housing Concerned About Future Housing: No Difficulty Paying Gas/Electric Bills: No Difficulty Paying for Meds: No Currently Unemployed: No Education: Master's Degree or Higher Difficulty w/ Childcare or Family Care: No Living arrangements: alone Occupation/Education: occupation Gender identity (if verbalized by the patient): Male Sexual Orientation (if Verbalized by the Patient): Straight or Heterosexual Spiritual care concerns: No Exam Narrative: General appearance: Well-developed, well-nourished Skin: Normal color Head: Normocephalic, nontraumatic Eyes: Clear conjunctiva ENT: Oropharynx normal, ears normal, nose normal Neck: Supple, nontender Chest and respiratory: Airway patent, no respiratory distress, no accessory muscle use Heart: Regular rate/rhythm Abdomen: Soft, nontender, no organomegaly, quiet bowel sounds Vascular: Normal peripheral pulses, normal capillary refill. Musculoskeletal: Normal range of motion, nontender back Neurologic: Alert and oriented ?3, ALMOND BLANCHER is normal as tested, no gross motor deficit Course Vital Signs Vital signs: Vital Signs Temperature 36.4 C L 08/23/24 06:36 Pulse Rate 61 08/23/24 06:36 Respiratory Rate 13 08/23/24 06:36 Blood Pressure 174/87 H 08/23/24 06:36 Pulse Oximetry 100 08/23/24 06:36 Oxygen Delivery Room Air 08/23/24 06:36 Temperature 36.4 C L 08/23/24 06:36 Pulse Rate 61 08/23/24 06:36 Respiratory Rate 13 08/23/24 06:36 Blood Pressure 174/87 H 08/23/24 06:36 Pulse Oximetry 100 08/23/24 06:36 Oxygen Delivery Room Air 08/23/24 06:40 Medical Decision Making MDM Narrative Medical decision making narrative: Patient presents with upper respiratory infection also complaining of intermittent left lower quadrant pain which he believes secondary to diverticulitis. Patient declined blood workup or imaging at this time and would like chest x-ray and COVID test. Patient requested a course of Cipro and Flagyl to treat his diverticulitis. Vital signs showing blood pressure 174/87, normal temperature, 100% oxygenation on room air Physical examination slight tenderness left lower quadrant Differential diagnosis upper respiratory viral infection, secondary bacterial infection, diverticulitis, anxiety COVID test today is negative Chest x-ray showed questionable pneumonitis. Patient oxygenation on room air 100% Patient discharged on Cipro and Flagyl for sinusitis and possible diverticulitis. Differential Diagnosis Differential Diagnosis: As above Vital Signs Vital Signs: Vital Signs Temperature 36.4 C L 08/23/24 06:36 Pulse Rate 61 08/23/24 06:36 Respiratory Rate 13 08/23/24 06:36 Blood Pressure 174/87 H 08/23/24 06:36 Pulse Oximetry 100 08/23/24 06:36 Oxygen Delivery Room Air 08/23/24 06:36 Temperature 36.4 C L 08/23/24 06:36 Pulse Rate 61 08/23/24 06:36 Respiratory Rate 13 08/23/24 06:36 Blood Pressure 174/87 H 08/23/24 06:36 Pulse Oximetry 100 08/23/24 06:36 Oxygen Delivery Room Air 08/23/24 06:40 Lab Data Labs: Lab Results 08/23/24 Range/Units 07:52 SARS-CoV-2 RNA (RT-PCR) Negative (Negative) Imaging Data Radiologist's impression: Impressions Chest X-Ray 08/23/24 08:15 IMPRESSION: Interstitial thickening in the left perihilar and both lower lobe areas which may indicate pneumonitis. Follow-up and clinical correlation advised. Critical Care Time Critical Care Time Critical Care Time: No Discharge Plan Discharge Clinical Impression: Sinusitis, Diverticulitis Patient Disposition: Home, Self-Care Condition: Stable Instructions: Antibiotic Form Additional Instructions: Return if symptoms are worsening , call your family physician for appointment, take Tylenol as as needed for aches and pain, continue home medications. Patient Language: Green[place]ic Prescriptions: New ciprofloxacin HCl [Cipro] 500 mg tablet 500 mg PO Q12H Qty: 20 0RF metronidazole 500 mg tablet 500 mg PO Q8H 7 Days Qty: 21 0RF ipratropium bromide 21 mcg (0.03 %) spray,non-aerosol 2 spray intranasal BID MDD Twice a day 7 Days Qty: 30 0RF Rx Instructions: administer into each nostril No Action indapamide 2.5 mg tablet 2.5 mg PO DIRECTED potassium chloride 10 mEq tablet extended release 10 meq PO DAILY omeprazole 40 mg capsule,delayed release(DR/EC) 40 mg PO DAILY albuterol sulfate 90 mcg/actuation HFA aerosol inhaler 2 puff inhalation Q4-6H PRN (Reason: shortness of breath or wheezing) 30 Days Qty: 8.5 0RF fluticasone propionate [Flonase Allergy Relief] 50 mcg/actuation spray,suspension 2 spray intranasal DAILY Rx Instructions: administer into each nostril fluticasone propionate [Flonase Allergy Relief] 50 mcg/actuation spray,suspension 1 spray intranasal BID Qty: 16 0RF Rx Instructions: administer into each nostril prednisone 50 mg tablet 50 mg PO DAILY Qty: 5 0RF ferrous sulfate 325 mg (65 mg iron) tablet 325 mg PO DAILY Qty: 90 1RF glimepiride 2 mg tablet 2 mg PO QAM Qty: 90 1RF Rx Instructions: administer with breakfast escitalopram oxalate [Lexapro] 20 mg tablet 20 mg PO DAILY Qty: 30 5RF alprazolam [Xanax] 2 mg tablet 2 mg PO TID 30 Days Qty: 90 2RF atenolol 100 mg tablet 100 mg PO DAILY Qty: 30 5RF Follow-up/Referrals: PHYSICIAN,INTERNAL REVIEW AND AUDIT COMPLIANCE [Non-Staff] -
[2024-08-23 08:37] LABS: SARS-CoV-2 RNA PCR Negative (Negative)
[2024-08-23 09:14] VITALS: BP 137/85; PULSE 55; RESP 16; O2SAT 100
== END 2024-08-23 09:16 | disposition home or self-care (01) ==
PROVIDERS: Emergency Provider Emergency Medicine
DX: J32.9 Chronic sinusitis, unspecified (principal); K57.92 Diverticulitis of intestine, part unspecified, without perforation or abscess without bleeding; Z20.822 Contact with and (suspected) exposure to COVID-19; I25.10 Atherosclerotic heart disease of native coronary artery without angina pectoris; I25.2 Old myocardial infarction; J45.909 Unspecified asthma, uncomplicated; R73.03 Prediabetes; K21.9 Gastro-esophageal reflux disease without esophagitis; G47.30 Sleep apnea, unspecified; Z98.84 Bariatric surgery status; Z87.891 Personal history of nicotine dependence; Z90.49 Acquired absence of other specified parts of digestive tract; R91.8 Other nonspecific abnormal finding of lung field
CPT/HCPCS: 71045; 87635; 99283

== ENCOUNTER 2024-08-29 15:52 | Emergency (ER) | payer OTHER, SELFPAY ==
--- NOTE | 2024-08-29 15:58 | ED.URI ---
HPI - URI/Sore Throat General Chief Complaint: Upper Respiratory Infection Stated Complaint: Sinus Time Seen by Provider: 08/29/24 15:59 Source: patient Mode of arrival: ambulatory Limitations: no limitations History of Present Illness HPI Narrative: Patient is a 54-year-old male who presents with sinus congestion pressure for---. Patient was seen in ER on the and was given 10 days of Cipro and Flagyl. Patient has not completed course. Patient was seen in urgent care on the and was given burst pack of prednisone. While in the ER patient refused all lab testing and imaging. Patient denies any fever, chills, nausea, vomiting, diarrhea. Related Data Home Medications ?Medication ?Instructions ?Recorded ?Confirmed ?Last Taken ?Type potassium chloride 10 mEq 10 meq PO DAILY 06/09/23 07/26/24 08/18/24 History tablet,extended release omeprazole 40 mg capsule,delayed 40 mg PO DAILY 04/22/24 08/29/24 08/18/24 History release atenolol 50 mg tablet 50 mg PO Q24H 08/29/24 08/29/24 Unknown History Allergies Allergy/AdvReac Type Severity Reaction Status Date / Time Iodinated Contrast Media Allergy Severe Anaphylaxis Verified 08/29/24 16:01 metformin Allergy Severe Stopped Verified 08/29/24 16:01 Breathing Sulfa (Sulfonamide Allergy Severe Anaphylaxis Verified 08/29/24 16:01 Antibiotics) sulfamethoxazole Allergy Severe Anaphylaxis Verified 08/29/24 16:01 famotidine Allergy Intermediate Hives Verified 08/29/24 16:01 losartan Allergy Intermediate SWLLEING Verified 08/29/24 16:01 LIP AND HIVES nebivolol Allergy Intermediate LIP Verified 08/29/24 16:01 SWELLING Quinolones Allergy Intermediate Nervousness Verified 08/29/24 16:01 valsartan Allergy Intermediate HIVES/SOB Verified 08/29/24 16:01 amlodipine Allergy Mild HIVES Verified 08/29/24 16:01 azithromycin Allergy Mild Nervousness Verified 08/29/24 16:01 pantoprazole Allergy Mild Hives Verified 08/29/24 16:01 spironolactone Allergy Mild RASH AND Verified 08/29/24 16:01 ITCHING trimethoprim Allergy Mild RASH Verified 08/29/24 16:01 morphine Allergy Unknown Verified 08/29/24 16:01 cephalexin AdvReac Mild Nervousness Verified 08/29/24 16:01 flavoxate AdvReac Mild Nervousness Verified 08/29/24 16:01 levofloxacin AdvReac Mild Nervousness Verified 08/29/24 16:01 lidocaine AdvReac Mild Nervousness Verified 08/29/24 16:01 lisinopril AdvReac Mild Nervousness Verified 08/29/24 16:01 nitrofurantoin AdvReac Mild Nervousness Verified 08/29/24 16:01 oxycodone AdvReac Mild Nervousness Verified 08/29/24 16:01 paroxetine AdvReac Mild Nervousness Verified 08/29/24 16:01 Review of Systems Review of Systems: All systems reviewed & are unremarkable except as noted in HPI and below Constitutional: Constitutional: Denies body ache(s), Denies chills, Denies fatigue, Denies fever(s), Denies headache(s), Denies malaise and Denies weakness Eyes: Eyes: Denies blurry vision, Denies itchy eyes and Denies loss of vision ENT: Denies otalgia, Denies headache(s), Reports nasal congestion, Denies sinus pain, Reports sinus pressure and Denies sore throat Cardiovascular: Cardiovascular: Denies chest pain, Denies irregular heart rhythm and Denies dyspnea Respiratory: Respiratory: Denies cough and Denies dyspnea Gastrointestinal: Gastrointestinal: Denies abdominal pain, Denies diarrhea, Denies nausea and Denies vomiting Musculoskeletal: Musculoskeletal: Denies back pain, Denies myalgias and Denies arthralgias Integumentary/Breasts: Skin/Breast: Denies pruritus and Denies rash Neurologic: Denies headache(s), Denies loss of vision and Denies weakness Psychiatric: Psychiatric: Reports no additional psychiatric complaints Endocrine: Endocrine: Denies fatigue Allergic/Immunologic: Allergic/Immunologic: Denies itchy eyes PMFSH Past Medical History Medical History Prediabetes Allergic rhinitis Chronic sinusitis Chronic post-traumatic stress disorder (PTSD) Anxiety Depression GERD (gastroesophageal reflux disease) Sleep apnea Asthma HTN (hypertension) CAD (coronary artery disease) history DC Concussion Surgical History Surgical History H/O gastric bypass Hx of cholecystectomy History of cardiac cath History of colonoscopy Family History Family History Grandparent Family history of obesity Hypertension Diabetes mellitus Mother Depression Patient's mother is in good health Family history of mental disorder Father Hypertension Patient's father is in good health Family history of alcoholism Cerebrovascular accident Sibling Patient's sister is in good health Patient's brother is in good health Father Cerebrovascular accident Alcoholism Hypertension Heart disease Mother Family history of malignant neoplasm Depression Hypertension Other Family history of cardiovascular disease Social History Social History Smoking status: Former smoker Smoking end date: 09/13/95 Alcohol intake: former Substance use: never Substance use type: opiates Lack of Transportation: No Lack of Food: Never True Current Housing: I Have Housing Concerned About Future Housing: No Difficulty Paying Gas/Electric Bills: No Difficulty Paying for Meds: No Currently Unemployed: No Education: Master's Degree or Higher Difficulty w/ Childcare or Family Care: No Living arrangements: alone Occupation/Education: occupation Gender identity (if verbalized by the patient): Male Sexual Orientation (if Verbalized by the Patient): Straight or Heterosexual Spiritual care concerns: No Comments At time of signature, agree with nursing past medical, surgical, social and family history. There is no relevant family history pertinent to the presenting complaint. Exam Const: General: cooperative, healthy appearing, comfortable, no acute distress and well nourished Nutritional Appearance: well nourished Orientation/consciousness: patient oriented x3 Limitations: no limitations HENMT: Head: normal to inspection, normocephalic and atraumatic Ears: hearing grossly normal bilaterally, external ears normal, TM's normal bilaterally, EAC's normal and no periauricular adenopathy Face/Nose/Sinus: Normal external nose present, Abnormal mucous membranes and turbinates present erythematous bilateral and diffuse, normal facial exam, sinuses nontender and face symmetric Face and sinus: normal facial exam, sinuses nontender and face symmetric Mouth: Yes Normal oral and palatal mucosa present, Yes lip normal, Yes tongue normal, Yes Normal salivary glands and ducts present, Yes oropharynx normal and Yes moist mucous membranes Teeth and gingiva: dentition normal Throat: posterior oropharynx normal, tonsils normal and uvula midline Eyes: General: appearance normal, both eyes and all related structures Alignment and Position: alignment normal and position normal Periorbital: periorbital findings normal Eyelids: eyelids normal Pupils: Equal, round and reactive pupils present Neck: Neck: normal visual inspection, full ROM, no lymphadenopathy and supple Chest: Chest palpation & inspection: normal inspection of the chest and normal palpation of entire chest wall Resp: Effort & Inspection: normal respiratory effort and able to speak in complete sentences Auscultation: clear to auscultation bilaterally, no crackles, no rales, no rhonchi and no wheezes Cardio: Rate: regular rate Rhythm: regular rhythm Heart sounds: S1 normal heart sound present and S2 normal heart sound present GI: Inspection: normal to inspection Skin: General skin exam: normal color and no rashes or lesions noted Neuro: General: patient oriented x3 and moves all extremities Cranial nerves: Yes Equal, round and reactive pupils present Speech: normal speech Gait exam (Neuro): Normal gait present Extrem: General: normal to inspection, full ROM and no edema Psych: Appearance: grossly normal and well kempt Mental Status: mental status grossly normal Speech and movement: Normal speech and movement present Affect: normal affect Attitude: cooperative Thought process: Normal thought process present Course Course Emergency Course: Discharge instructions reviewed with patient, as well as provided in writing per nursing staff. The instructions also include specific and strict return/GO TO THE ER as well as f/u information. All questions have been answered, and the patient deny any further questions with discharge and discharge plan. Portions of this record may have been created with voice recognition software Level of Care: Express Care Visit Vital Signs Vital signs: Vital Signs Temperature 37.1 C 08/29/24 16:20 Pulse Rate 67 08/29/24 16:20 Respiratory Rate 16 08/29/24 16:20 Blood Pressure 158/78 H 08/29/24 16:20 Pulse Oximetry 98 08/29/24 16:20 Oxygen Delivery Room Air 08/29/24 16:20 Temperature 37.1 C 08/29/24 16:20 Pulse Rate 67 08/29/24 16:20 Respiratory Rate 16 08/29/24 16:20 Blood Pressure 158/78 H 08/29/24 16:20 Pulse Oximetry 98 08/29/24 16:20 Oxygen Delivery Room Air 08/29/24 16:20 Reviewed MDM - URI/Sore Throat MDM Narrative Medical decision making narrative: Patient is currently on antibiotics for current symptoms. Patient refuses all other antibiotics. Will not repeat steroids due to last course being within 2 weeks. Pt well hydrated appearing, in no respiratory distress, hemodynamically stable. Recommend supportive care. The patient is stable at time of discharge the clinical impression was discussed and the patient was given the opportunity to ask questions, which were addressed as completely as possible given the information available at present. Anticipatory guidance and return to care precautions were discussed and the importance of primary care follow-up was stressed and encouraged. The patient voiced understanding of the plan, indications to return, and the need for follow-up. Differential diagnosis considered: Vázquez virus, strep pharyngitis, allergic rhinitis, upper respiratory tract infection, sinusitis, rhinosinusitis, nasopharyngitis. viral pharyngitis, otitis media, otitis externa, otitis effusion, foreign body, cerumen impaction, viral syndrome, and influenza.? Exam findings show no acute concerns or changes; patient is non-toxic appearing and is in no distress.? Patient is appropriate for outpatient treatment and follow-up.? Medical Records Attestation: I reviewed the patient's medical records. Discharge Plan Discharge Clinical Impression: Upper respiratory infection Qualifiers: URI type: unspecified URI Qualified Code(s): J06.9 - Acute upper respiratory infection, unspecified Patient Disposition: Home, Self-Care Condition: Stable Instructions: Upper Respiratory Infection (ED) Additional Instructions: Continue taking antibiotics as prescribed. Other symptomatic treatments include: -Alternate Tylenol and Motrin per package directions for fever or pain. -Antihistamine medication such as Benadryl at night and Zyrtec/Claritin/Anjelica during the day can help improve symptoms. -Use Flonase twice a day for 5 days then daily to help reduce the inflammation and dry up your sinuses. -You can also use Sudafed or Mucinex. Be sure to drink plenty of water with these medications at least 8 ounces with every dose and it is important to drink 8 to 10 glasses of water per day. Water is a natural decongestant -Eat and drink things that are easy to swallow, like tea or soup, or popsicles. -Oral rinses such as: Salt water gargles and/or may use topical anesthetic (eg. Chloraseptic spray) or lozenges to relieve dryness or throat pain). -Frequent hand washing or hand java engineer is one of the best ways to prevent spread of infection. -Using a vaporizer or humidifier at night will also help thin secretions and help with coughing up phlegm. -Follow up with primary care provider in 3-5 days if condition is not improving - For new or worsening symptoms go directly to the nearest ER Patient Language: Indonesian Prescriptions: No Action potassium chloride 10 mEq tablet extended release 10 meq PO DAILY omeprazole 40 mg capsule,delayed release(DR/EC) 40 mg PO DAILY atenolol 50 mg tablet 50 mg PO Q24H albuterol sulfate 90 mcg/actuation HFA aerosol inhaler 2 puff inhalation Q4-6H PRN (Reason: shortness of breath or wheezing) 30 Days Qty: 8.5 0RF fluticasone propionate [Flonase Allergy Relief] 50 mcg/actuation spray,suspension 1 spray intranasal BID Qty: 16 0RF Rx Instructions: administer into each nostril ciprofloxacin HCl [Cipro] 500 mg tablet 500 mg PO Q12H Qty: 20 0RF metronidazole 500 mg tablet 500 mg PO Q8H 7 Days Qty: 21 0RF ferrous sulfate 325 mg (65 mg iron) tablet 325 mg PO DAILY Qty: 90 1RF escitalopram oxalate [Lexapro] 20 mg tablet 20 mg PO DAILY Qty: 30 5RF alprazolam [Xanax] 2 mg tablet 2 mg PO TID 30 Days Qty: 90 2RF Follow-up/Referrals: Sheldon,Vignesh Polk MD [Non-Staff] - 3 Days PHYSICIAN,SENIOR CYBER INTELLIGENCE ANALYST [Primary Care Provider] - Sam Sam MD [Physician] - 3 Days Time of Disposition: 16:47
[2024-08-29 16:20] VITALS: BP 158/78; PULSE 67; RESP 16; TEMP 37.1; O2SAT 98
== END 2024-08-29 16:59 | disposition home or self-care (01) ==
PROVIDERS: Emergency Provider Nurse Practitioner Family
DX: J06.9 Acute upper respiratory infection, unspecified (principal); Z87.891 Personal history of nicotine dependence; I10 Essential (primary) hypertension; I25.10 Atherosclerotic heart disease of native coronary artery without angina pectoris; I25.2 Old myocardial infarction; K21.9 Gastro-esophageal reflux disease without esophagitis; R73.03 Prediabetes; Z98.84 Bariatric surgery status
CPT/HCPCS: 99211; 99213; G0463

== ENCOUNTER 2024-09-03 03:46 | Emergency (ER) | payer OTHER, SELFPAY ==
[2024-09-03 03:48] VITALS: BP 194/91; PULSE 82; RESP 18; TEMP 36.7; O2SAT 100
--- NOTE | 2024-09-03 04:30 | PC.NURSE ---
this patient has been difficult to provide care to. Patient continues to ask for the charge nurse.
[2024-09-03 04:46] LABS: Basophils Percent Auto 0.4 % (0.2-1.2); Eosinophils Percent Auto 0.1 % (0-4.4); Hematocrit 38.5 % (42.0-52.0); Hemoglobin 11.5 g/dL (14.0-18.0); Immature Granulocyte Absolute 0.03 K/mm3 (0.00-0.031); Immature Granulocyte Percent A 0.3 % (0-0.5); Lymphocytes Absolute Auto 0.83 K/mm3 (0.9-3.2); Lymphocytes Percent Auto 8.7 % (18.3-44.2); Mean Corpuscular HGB Conc 29.9 g/dl (32-36); Mean Corpuscular Hemoglobin 19.9 pg (26-34); Mean Corpuscular Volume 66.6 fl (80-100); Monocytes Absolute Auto 0.5 K/mm3 (0.1-0.6); Monocytes Percent Auto 4.9 % (2.6-8.5); Neutrophils Absolute Auto 8.2 K/mm3 (1.3-6.7); Neutrophils Percent Auto 85.6 % (45.5-73.1); Platelet Count Result 196 k/mm3 (150-375); Red Blood Count 5.78 M/mm3 (4.6-6.20); Red Cell Distribution Width 19.7 % (11.5-14.5); White Blood Count 9.5 K/mm3 (4.5-10.0)
[2024-09-03 04:59] LABS: Prothrombin Time 13.6 Seconds (11.1-14.7)
[2024-09-03 05:00] LABS: Partial Thromboplastin Time 33.9 Seconds (22.3-36.8)
[2024-09-03 05:04] LABS: Alanine Aminotransferase 22 U/L (6-50); Albumin Level 4.5 g/dL (3.5-5.1); Alkaline Phosphatase 75 U/L (38-126); Anion Gap 7 mmol/L (4-12); Aspartate Amino Transferase 30 U/L (17-59); Bilirubin,Total 1.6 mg/dL (0.2-1.3); Blood Urea Nitrogen 13 mg/dL (9-20); Calcium 9.2 mg/dL (8.4-10.2); Carbon Dioxide 28 mmol/L (22-30); Chloride 105 mmol/L (98-107); Estimated CRCL calculation 98 ml/min; Estimated Glomerular Filt Rate > 60; Glucose 135 mg/dL (65-110); Potassium 3.4 mmol/L (3.4-5.0); Sodium 140 mmol/L (137-145)
[2024-09-03 05:13] LABS: Hypochromasia 1+; Platelet Estimate Adequate (Adequate)
[2024-09-03 05:14] LABS: Microcytosis 2+ (NORMAL); Ovalocytes 1+; Schistocytes None Seen
--- NOTE | 2024-09-03 05:35 | ED_ITS ---
HPI - General Adult General Chief complaint: GI Bleed Stated complaint: gi bleed Time Seen by Provider: 09/03/24 04:12 History of Present Illness HPI narrative: 54-year-old male present to the emergency department for evaluation for multiple complaints. Patient was initially concerned he was having a GI bleed. Patient was concerned that his heart rate was too high. Patient does complain of viral symptoms. Related Data Home Medications ?Medication ?Instructions ?Recorded ?Confirmed ?Last Taken ?Type potassium chloride 10 mEq 10 meq PO DAILY 06/09/23 07/26/24 08/18/24 History tablet,extended release omeprazole 40 mg capsule,delayed 40 mg PO DAILY 04/22/24 08/29/24 08/18/24 History release atenolol 50 mg tablet 50 mg PO Q24H 08/29/24 08/29/24 Unknown History Allergies Allergy/AdvReac Type Severity Reaction Status Date / Time Iodinated Contrast Media Allergy Severe Anaphylaxis Verified 08/29/24 16:01 metformin Allergy Severe Stopped Verified 08/29/24 16:01 Breathing Sulfa (Sulfonamide Allergy Severe Anaphylaxis Verified 08/29/24 16:01 Antibiotics) sulfamethoxazole Allergy Severe Anaphylaxis Verified 08/29/24 16:01 famotidine Allergy Intermediate Hives Verified 08/29/24 16:01 losartan Allergy Intermediate SWLLEING Verified 08/29/24 16:01 LIP AND HIVES nebivolol Allergy Intermediate LIP Verified 08/29/24 16:01 SWELLING Quinolones Allergy Intermediate Nervousness Verified 08/29/24 16:01 valsartan Allergy Intermediate HIVES/SOB Verified 08/29/24 16:01 amlodipine Allergy Mild HIVES Verified 08/29/24 16:01 azithromycin Allergy Mild Nervousness Verified 08/29/24 16:01 pantoprazole Allergy Mild Hives Verified 08/29/24 16:01 spironolactone Allergy Mild RASH AND Verified 08/29/24 16:01 ITCHING trimethoprim Allergy Mild RASH Verified 08/29/24 16:01 morphine Allergy Unknown Verified 08/29/24 16:01 cephalexin AdvReac Mild Nervousness Verified 08/29/24 16:01 flavoxate AdvReac Mild Nervousness Verified 08/29/24 16:01 levofloxacin AdvReac Mild Nervousness Verified 08/29/24 16:01 lidocaine AdvReac Mild Nervousness Verified 08/29/24 16:01 lisinopril AdvReac Mild Nervousness Verified 08/29/24 16:01 nitrofurantoin AdvReac Mild Nervousness Verified 08/29/24 16:01 oxycodone AdvReac Mild Nervousness Verified 08/29/24 16:01 paroxetine AdvReac Mild Nervousness Verified 08/29/24 16:01 Review of Systems 2 Review of Systems: All systems reviewed & are unremarkable except as noted in HPI and below PMFSH Past Medical History Medical History Prediabetes Allergic rhinitis Chronic sinusitis Chronic post-traumatic stress disorder (PTSD) Anxiety Depression GERD (gastroesophageal reflux disease) Sleep apnea Asthma HTN (hypertension) CAD (coronary artery disease) history SD Concussion Surgical History Surgical History H/O gastric bypass Hx of cholecystectomy History of cardiac cath History of colonoscopy Family History Family History Grandparent Family history of obesity Hypertension Diabetes mellitus Mother Depression Patient's mother is in good health Family history of mental disorder Father Hypertension Patient's father is in good health Family history of alcoholism Cerebrovascular accident Sibling Patient's sister is in good health Patient's brother is in good health Father Cerebrovascular accident Alcoholism Hypertension Heart disease Mother Family history of malignant neoplasm Depression Hypertension Other Family history of cardiovascular disease Social History Social History Smoking status: Former smoker Smoking end date: 09/13/95 Alcohol intake: former Substance use: never Substance use type: opiates Lack of Transportation: No Lack of Food: Never True Current Housing: I Have Housing Concerned About Future Housing: No Difficulty Paying Gas/Electric Bills: No Difficulty Paying for Meds: No Currently Unemployed: No Education: Master's Degree or Higher Difficulty w/ Childcare or Family Care: No Living arrangements: alone Occupation/Education: occupation Gender identity (if verbalized by the patient): Male Sexual Orientation (if Verbalized by the Patient): Straight or Heterosexual Spiritual care concerns: No Exam 2 Narrative: APPEARANCE: Well appearing, no pain, no distress, well-nourished. HEAD: normocephalic, atraumatic. EYES: PERRLA/EOMI, conjunctivae clear. NOSE: Normal no drainage EARS:TMS clear with good light reflex. THROAT: Pharynx clear, no exudate. NECK: Supple. No adenopathy, no masses. RESPIRATORY: Airway patent, respirations nonlabored. Clear to auscultation bilaterally, no rales, rhonchi, wheezing. CARDIOVASCULAR: Regular rate and rhythm without murmurs rubs or gallops. ABDOMINAL: Soft, nontender, nondistended, normal bowel sounds MUSCULOSKELETAL: Moves all extremities. Strength/ROM intact, No edema, No calf tenderness. NEURO: Alert. Cranial nerves II through XII intact. Grossly intact SKIN: Warm, dry. Normal Color Course Vital Signs Vital signs: Vital Signs Temperature 98.1 F 09/03/24 03:48 Pulse Rate 82 09/03/24 03:48 Respiratory Rate 18 09/03/24 03:48 Blood Pressure 194/91 H 09/03/24 03:48 Pulse Oximetry 100 09/03/24 03:48 Oxygen Delivery Room Air 09/03/24 03:48 Temperature 98.1 F 09/03/24 03:48 Pulse Rate 82 09/03/24 03:48 Respiratory Rate 18 09/03/24 03:48 Blood Pressure 194/91 H 09/03/24 03:48 Pulse Oximetry 100 09/03/24 03:48 Oxygen Delivery Room Air 09/03/24 03:48 Medical Decision Making [facility] Narrative Medical decision making narrative: 54-year-old male presents emergency department for evaluation for multiple complaints. Patient is not tachycardic he is afebrile and has no leukocytosis. Patient's hemoglobin is identical to his previous with an 11.5. Patient has no acute abnormalities on his CMP. Patient was updated on the results of the workup. Suspect patient does have underlying viral illness. Patient prefers to have follow-up with his physicians as outpatient. Patient was discharged to home. Vital Signs Vital Signs: Vital Signs Temperature 98.1 F 09/03/24 03:48 Pulse Rate 82 09/03/24 03:48 Respiratory Rate 18 09/03/24 03:48 Blood Pressure 194/91 H 09/03/24 03:48 Pulse Oximetry 100 09/03/24 03:48 Oxygen Delivery Room Air 09/03/24 03:48 Temperature 98.1 F 09/03/24 03:48 Pulse Rate 82 09/03/24 03:48 Respiratory Rate 18 09/03/24 03:48 Blood Pressure 194/91 H 09/03/24 03:48 Pulse Oximetry 100 09/03/24 03:48 Oxygen Delivery Room Air 09/03/24 03:48 Lab Data 09/03/24 04:35 09/03/24 04:35 Labs: Lab Results 09/03/24 Range/Units 04:35 WBC 9.5 (4.5-10.0) K/mm3 RBC 5.78 (4.6-6.20) M/mm3 Hgb 11.5 L (14.0-18.0) g/dL Hct 38.5 L (42.0-52.0) % MCV 66.6 L (80-100) fl MCH 19.9 L (26-34) pg MCHC 29.9 L (32-36) g/dl RDW 19.7 H (11.5-14.5) % Plt Count 196 (150-375) k/mm3 MPV 9.0 (7.4-10.4) fl Immature Gran % (Auto) 0.3 (0-0.5) % Neut % (Auto) 85.6 H (45.5-73.1) % Lymph % (Auto) 8.7 L (18.3-44.2) % Burnet % (Auto) 4.9 (2.6-8.5) % Eos % (Auto) 0.1 (0-4.4) % Baso % (Auto) 0.4 (0.2-1.2) % Lymph # (Auto) 0.83 L (0.9-3.2) K/mm3 Burnet # (Auto) 0.5 (0.1-0.6) K/mm3 Eos # (Auto) 0.0 (0-0.3) K/mm3 Baso # (Auto) 0.0 (0.0-0.1) K/mm3 Abs Immat Gran (auto) 0.03 (0.00-0.031) K/mm3 Absolute Neuts (auto) 8.2 H (1.3-6.7) K/mm3 Absolute Nucleated RBC 0.000 (0.0-0.012) K/mm3 Nucleated RBC % 0.0 (0.0-0.2) % Platelet Estimate Adequate (Adequate) Hypochromasia 1+ Microcytosis 2+ (NORMAL) Ovalocytes 1+ Schistocytes None seen PT 13.6 (11.1-14.7) Seconds INR 1.0 APTT 33.9 (22.3-36.8) Seconds Sodium 140 (137-145) mmol/L Potassium 3.4 (3.4-5.0) mmol/L Chloride 105 (98-107) mmol/L Carbon Dioxide 28 (22-30) mmol/L Anion Gap 7 (4-12) mmol/L BUN 13 D (9-20) mg/dL Creatinine 0.90 (0.7-1.3) mg/dL Estim Creat Clear Calc 98 ml/min Estimated GFR > 60 (59 - ) Glucose 135 H (65-110) mg/dL Calcium 9.2 (8.4-10.2) mg/dL Total Bilirubin 1.6 H (0.2-1.3) mg/dL AST 30 (17-59) U/L ALT 22 (6-50) U/L Alkaline Phosphatase 75 (38-126) U/L Total Protein 8.0 (6.3-8.2) g/dL Albumin 4.5 (3.5-5.1) g/dL Discharge Plan Discharge Clinical Impression: Heart palpitations Patient Disposition: Home, Self-Care Condition: Stable Instructions: Antibiotic Form Additional Instructions: Have close follow-up with your primary care physician. If you have any worsening symptoms then please call or return to the emergency department. Patient Language: Mohawk Prescriptions: No Action potassium chloride 10 mEq tablet extended release 10 meq PO DAILY omeprazole 40 mg capsule,delayed release(DR/EC) 40 mg PO DAILY atenolol 50 mg tablet 50 mg PO Q24H albuterol sulfate 90 mcg/actuation HFA aerosol inhaler 2 puff inhalation Q4-6H PRN (Reason: shortness of breath or wheezing) 30 Days Qty: 8.5 0RF fluticasone propionate [Flonase Allergy Relief] 50 mcg/actuation spray,suspension 1 spray intranasal BID Qty: 16 0RF Rx Instructions: administer into each nostril ciprofloxacin HCl [Cipro] 500 mg tablet 500 mg PO Q12H Qty: 20 0RF metronidazole 500 mg tablet 500 mg PO Q8H 7 Days Qty: 21 0RF ferrous sulfate 325 mg (65 mg iron) tablet 325 mg PO DAILY Qty: 90 1RF escitalopram oxalate [Lexapro] 20 mg tablet 20 mg PO DAILY Qty: 30 5RF alprazolam [Xanax] 2 mg tablet 2 mg PO TID 30 Days Qty: 90 2RF Follow-up/Referrals: UNKNOWN,DOCTOR [Primary Care Provider] -
--- NOTE | 2024-09-03 06:01 | PC.NURSE ---
pt left in police custody with x2 police officers.
--- OUTSIDE RECORDS SUMMARY | 2024-09-10 03:43 | XMS_ITS | Encounter Summary ---
Author Organization [facility] Address [address] [place] [address] Care Team Providers Care Puzzle Assembler Name Role Phone Unavailable Primary Care Provider Unavailabl e Reason for Visit * Reason Onset Date Comments Refill Request 01/07/2021 Encounter Details Date Type Department Care Team (Late st Contact Info) Description 01/07/2021 Telephone [facility] [address], [facility] [place] [id number] Linda Frost MD [address] [place] [id number] Refill Request Social History Tobacco Use Types Packs/Day Years Used Date Smoking Tobacco: Former Smokeless Tobacco: Never Alcohol Use Standard Drinks/Week Comments No 0 (1 standard drink = 0.6 oz pur e alcohol) Sex and Gender Information Value Date Recorded Sex Assigned at Not on file Gender Identity Not on file Sexual Orientation Not on file documented as of this encounter Miscellaneous Notes * Telephone Encounter - Chyna Lainez RN - 01/07/2021 11:03 AM CDT Phoned pharmacy and spoke to [place] pharmacist. She said pharmacy is aware of the issues with thispatient. She said there is no good way to stop the requests from coming. She said she couldn't really flag his account. Recommended that we just deny any requests. * Telephone Encounter - Remedios Catalan LPN - 01/07/2021 10:39 AM CDT [facility] pharmacy faxed a refill request for Atenolol 100mg with the note Pt is out of med. Says this DR is following for 30 more days. Please send refill. Letter in chart from 11/17/19 stating that patient was dismissed from the practice. Pharmacy notified patient dismissed from the practice and no refills would be given. documented in this encounter Plan of Treatment Not on file documented as of this encounter Visit Diagnoses Not on filedocumented in this encounter
--- OUTSIDE RECORDS SUMMARY | 2024-09-10 03:43 | XMS_ITS | Clinical Summary ---
Author Organization [facility] [employer] Address [address] [place] [address] Care Team Providers Care Social Media Editor Name Role Phone Unavailable Primary Care Provider Unavailabl e Source Comments [facility],non-owned Affiliates and Associated Physician Practices is amultiple site organization consisting of ambulatory clinics and hospital sitesin [place], [place], [place] and [place]. This disclosure is being madepursuant to the Care Everywhere program and may not contain all information available regarding this patient. Last updated 18.[facility] [employer] Allergies Active Allergy Reactions Criticality Noted Date Comments Azithromycin Other 10/04/2014 Bactrim Ds Rash 11/03/2009 Barium Other 07/25/2014 Cephalexin Shortness of Breath High 11/16/2019 Contrast-Iodinated Agents For Ct/Other 11/30/2009 Doxycycline Other 10/04/2014 Glimepiride Urticaria Medium 08/25/2019 Levaquin Hallucinations 01/01/2008 Levetiracetam Other Low 11/16/2019 hallucinaton Levofloxacin Other Medium 11/09/2009 Lidocaine Rash,Swelling 06/30/2008 Losartan Angioedema High 08/01/2019 Swollen lips Maalox Shortness of Breath High 07/27/2012 Metformin Other 08/01/2019 Chest pain Paroxetine 01/30/2012 Pepcid Shortness of Breath High 02/29/2012 IV formula Oxycodone-Acetaminophen Palpitations,Other 01/12 Pt reports that he breaks out into a sweat Sulfa Drugs 06/26/2013 Sulfamethoxazole W-Trimethoprim Urticaria High 11/09/2009 Sulfur Urticaria,Shortness of Breath High 11/16/2019 Medications * Be aware that medications may not be up to date on this document. Alwaysverify current medications with the patient. Medication Sig Dispensed Refills Start Date End Date Status sucralfate (CARAFATE) 1 GM tablet TK 1 T QID 0 05/14/2019 Active simethicone (GAS-X) 80 MG chew tablet Take 80 mg by mouth Active albuterol HFA (PROVENTIL;VENTOLIN;P ROAIR) 108 (90 Base) MCG/ACT inhaler INL 1 TO 2 PFS PO Q 4 H PRF SOB 1 Inhaler 11 08/01/2019 Active fluticasone propionate (FLONASE) 50 MCG/ACT nasal spray [place] 2 sprays into each nostril once daily 15.8 g 11 08/01/2019 Active hyoscyamine 0.125 MG tabletIndications:Acu te diverticulitis Take 1 tablet by mouth every 4 hours as needed for Spasms 30 tablet 09/30/2019 Active promethazine (PHENERGAN) 25 MG tabletIndications:Acu te diverticulitis Take 1 tablet by mouth every 6 hours as needed for Nausea/Vomiting 20 tablet 10/20/2019 Active ipratropium (ATROVENT) 0.06 % nasal spray [place] 2 sprays into each nostril 3 times daily 15 mL 10/28/2019 Active cyclobenzaprine (FLEXERIL) 10 MG tablet Take 10 mg by mouth 3 times daily as needed 10/06/2019 Active alfuzosin CR 24hr (UROXATRAL) 10 MG tablet Take 1 tablet by mouth once daily 30 tablet 3 11/09/2019 Active omeprazole (PRILOSEC) 20 MG capsule Take 1 capsule by mouth once daily 30 capsule 11/17/2019 Active predniSONE (DELTASONE) 50 MG tabletIndications:All ergic to IV contrast TAKE 1 TAB @ 13 HRS, 7 HRS, AND [address] 3 tablet 11/23/2019 Active diphenhydrAMINE (BENADRYL) 50 MG capsuleIndications:Al lergic to IV contrast TAKE [address] 1 capsule 11/23/2019 Active hydrALAZINE (APRESOLINE) 25 MG tablet Take 1 tablet by mouth 3 times daily 90 tablet 12/03/2019 Active hydroCHLOROthiazide (MICROZIDE) 12.5 MG capsule Take 1 capsule by mouth once daily 30 capsule 12/04/2019 Active trandolapril (MAVIK) 2 MG tablet Take 1 tablet by mouth once daily 30 tablet 1 12/12/2019 Active polyethylene glycol (GOLYTELY;NULYTELY) 240 g solution Drink 1/2 of prep at 5pm the night before test. Finish the prep at 4am the day of test. 4000 mL 03/27/2020 Active hyoscyamine 0.125 MG tabletIndications:Acu te diverticulitis Take 1 tablet by mouth every 6 hours as needed for Spasms 50 tablet 1 09/02/2020 Active atenolol (TENORMIN) 100 MG tabletIndications:Ess ential hypertension Take 1 tablet by mouth once daily This will be last times this will be ordered by YAIMA since he has been dismissed from practice. 30 tablet 3 09/02/2020 Active ciprofloxacin (CIPRO) 500 MG tabletIndications:Acu te diverticulitis Take 1 tablet by mouth 2 times daily 20 tablet 09/02/2020 Active ALPRAZolam (Xanax) 1 MG tabletIndications:Anx iety Take 1 (one) tablet by mouth 2 times daily as needed for Anxiety Reasons: Feeling Anxious 14 tablet 11/30/2022 Active Active Problems Problem Noted Date Diagnosed Date Type 2 diabetes mellitus wit h hyperglycemia, without long-term current use of insulin 09/01/2019 Arthritis 02/13/2019 Asthma 02/13/2019 Benign neoplasm of colon 02/13/2019 Diverticulitis 02/13/2019 Other acute recurrent sinusitis 05/10/2018 Overview (10/31/2019): Last Assessment & Plan: The patient is currently getting over an acute sinus infection. She is currently on Augmentin. Patient continues to demonstrate symptoms consistent with paranasal sinus pressure and headaches. I will add guaifenesin D as a mucolytic decongestant agent in conjunction with a Medrol Dosepak. Patient is to take these medications as directed. Should patient failed to respond to medical management CT imaging will be obtained to determine the extent of the disease process. Nausea 08/16/2017 Allergic rhinitis 03/12/2017 Overview (10/31/2019): Last Assessment & Plan: Patient demonstrates symptoms consistent with allergic rhinitis. Patient is instructed to continue with fluticasone nasal spray 2 sprays in each nostril twice daily. We will add Astelin nasal spray 2 sprays in each nostril b.i.d.. Patient was also instructed to perform saline nasal sprays periodically throughout the day to help promote mucociliary clearance. Patient was made aware of the importance of maintaining compliance with her treatment regimen in order to determine the effectiveness. Benzodiazepine dependence 03/12/2017 Essential hypertension 03/12/2017 Obesity (BMI 30-39.9) 03/12/2017 Recurrent major depressive disorder, in partial remission 03/12/2017 Overview (10/31/2019): Scheduled appointment with psychiatric, April 01, [facility] in [place]. Microcytic anemia 07/02/2015 SOB (shortness of breath) 07/02/2015 Anxiety state 01/08/2015 Neck pain 01/08/2015 Cervical stenosis of spinal canal 08/28/2014 Costochondral chest pain 08/28/2014 Paresthesias with subjective weakness 08/28/2014 PTSD (post-traumatic stress disorder) 08/28/2014 Blurry vision, bilateral 08/28/2014 Diverticulitis of colon 09/11/2013 Overview (06/13/2015): Colitis 02/02/2013 Panic attack 01/03/2010 Sedative, hypnotic or anxiolytic abuse, continuo us 06/18/2009 Gastroesophageal reflux disease 06/13/2009 Chest pain 01/01/2008 Resolved Problems Problem Noted Date Diagnosed Date Resolved Date Tooth infection 08/16/2017 10/31/2019 Abdominal pain, acute 02/02/20132018 Headache 07/05/2012 08/01/2019 Overview (07/21/2015): Dizziness 12/05/2009 08/01/2019 Immunizations Name Administration Dates Next Due TD 09/13/2011 Family History Medical History Relation Name Comments Alcohol abuse Father Stroke Father Bipolar Disorder Mother Cirrhosis Mother Depression Mother Relation Name Status Comments Father (Age 96) Heart Mother Sister Alive half-brother Alive Social History Tobacco Use Types Packs/Day Years Used Date Smoking Tobacco: Former Smokeless Tobacco: Never Alcohol Use Standard Drinks/Week Comments No 0 (1 standard drink = 0.6 oz pur e alcohol) Sex and Gender Information Value Date Recorded Sex Assigned at Not on file Gender Identity Not on file Sexual Orientation Not on file Last Filed Vital Signs Vital Sign Reading Time Taken Comments Blood Pressure 167/99 11/30/2022 7:44 AM CDT Pulse 64 11/30/2022 3:41 AM CDT Temperature 36.6 ??C (97.8 ??F) 11/30/2022 3:41 AM CD T Respiratory Rate 16 11/30/2022 3:41 AM CDT Oxygen Saturation 96% 11/30/2022 7:11 AM CDT Inhaled Oxygen Concentration - - Weight 113.9 kg (251 lb) 11/30/2022 5:34 AM CDT Height 188 cm (6' 2 ) 11/30/2022 5:34 AM CDT Body Mass Index 32.23 11/30/2022 5:34 AM CDT Plan of Treatment Health Maintenance Due Date Last Done Comments COLOGUARD (AGES 45-75) - COLON CA SCREENING 1972 COLON MONITORING 1972 COLONOSCOPY - COLON CA SCREENING 1972 CT COLONOGRAPHY - COLON CA SCREENING 1972 Colorectal Cancer Screening 1972 FIT - COLON CA SCREENING 1972 FLEX SIG - COLON CA SCREENING 1972 PNEUMOCOCCAL VACCINE (1 of 2 - PCV) 02/09/1978 HIV SCREENING 02/09/1987 HEPATITIS B VACCINE (1 of 3 - 19+ 3-dose series) 02/09/1991 DIABETES-STATIN 2012 DIABETES RETINOPATHY SCREENING 09/01/2019 DIABETES-HGB A1C 01/30/2020 08/01/2019 DIABETES-FOOT EXAM WITH MONOFILAMENT 08/01/2020 08/01/2019 DIABETES-SERUM CREATININE 10/20/20202019, 07/29/2015, 10/09/2013, Additional history exists DTAP/TDAP/TD VACCINES (2 - Td or Tdap) 09/13/2021 09/13/2011 ZOSTER VACCINE (1 of 2) 02/09/2022 DEPRESSION SCREENING 09/13/2023 COVID-19 VACCINE (1 - season) 2024 INFLUENZA VACCINE (#1) 2024 HEPATITIS C SCREENING Completed 10/20/2019 HIB VACCINE Aged Out No longer eligi ble based on patient's age to complete this topic HPV VACCINE Aged Out No longer eligi ble based on patient's age to complete this topic MENINGOCOCCAL VACCINE Aged Out No mode jeremiah eligible based on patient's age to complete this topic Procedures Procedure Name Priority Date/Time Associated Diagnosis Comments MICROALB/CREAT RATIO URINE RANDOM PANEL Routine 10/20/2019 2:41 PM INVENTORY CONTROL SUPERVISOR Type 2 diabetes mellitus without complication, without long-term current use of insulin (HCC) COMPREHENSIVE METABOLIC PANEL Routine 10/20/2019 2:41 PM INVENTORY CONTROL SUPERVISOR Type 2 diabetes mellitus without complication, without long-term current use of insulin (HCC) Obesity with serious comorbidity, unspecified classification, unspecified obesity type HEPATITIS C AB W RFLX VERIFICATION Routine 10/20/2019 2:41 PM INVENTORY CONTROL SUPERVISOR Type 2 diabetes mellitus without complication, without long-term current use of insulin (HCC) Need for hepatitis C screening test HEMOGLOBIN A1C - POINT OF CARE (AMB) [facility] Routine 08/01/2019 Type 2 diabetes mellitus without complication, without long-term current use of insulin (HCC) from Last 3 Months or Most Recently Relevant to Health Maintenance Results * HEPATITIS C AB W RFLX VERIFICATION (10/20/2019 2:41 PM INVENTORY CONTROL SUPERVISOR) Pathologist [facility] Hepatitis C Antibody <0.1 0.0 - 0.9 s/co ratio 10/21/2019 8:18 AM INVENTORY CONTROL SUPERVISOR [facility] ([facility]) Blood BLOOD SPECIMEN / Unknown Lab Venipuncture / Unknown 10/20/2019 2:41 PM INVENTORY CONTROL SUPERVISOR 10/20/2019 3:01 PM INVENTORY CONTROL SUPERVISOR Narrative [facility] ([facility]) - 10/21/2019 8:18 AM INVENTORY CONTROL SUPERVISOR Performed at: ??01 - [facility] [address] [place], [place] ??[id number] Recreation Officer: Carlos Woods PhD, Phone: ??[phone] Radha Palafox STUDENT ASSISTANT-CAR TESTER LAB - CHEMI STRY ORDERABLES [facility] ([facility]) [address] [place] [address] * (ABNORMAL) MICROALB/CREAT RATIO URINE RANDOM PANEL (10/20/2019 2:41 PM INVENTORY CONTROL SUPERVISOR) Albumin Random Urine 65.0 Not Established mcg/mL 10/20/2019 4:57 PM [facility] Creatinine Urine 143 Not Established mg/dL 10/20/2019 4:57 PM [facility] Comment: Result obtained by dilution. Urine Albumin/Creati nine Ratio 45(H) <30 mg/g 10/20/2019 4:57 PM [facility] Urine URINE SPECIMEN OBTAINED BY CLEAN CATCH PROCEDURE / Unknown Collection / Unknown 10/20/2019 2:41 PM INVENTORY CONTROL SUPERVISOR 10/20/2019 3:01 PM INVENTORY CONTROL SUPERVISOR Radha M Vivienne STUDENT ASSISTANT-CAR TESTER LAB - URINE CHEMISTRY ORDERABLES [facility] [address] [place] [address] * (ABNORMAL) COMPREHENSIVE METABOLIC PANEL (10/20/2019 2:41 PM [facility]) BUN 11 7 - 26 mg/dL 10/20/2019 3:33 PM [facility] Creatinine 0.9 0.6 - 1.2 mg/dL 10/20/2019 3:33 PM [facility] Sodium 142 136 - 145 mmol/L 10/20/2019 3:33 PM [facility] Potassium 3.3(L) 3.5 - 4.5 mmol/L 10/20/2019 3:33 PM [facility] Chloride 104 98 - 107 mmol/L 10/20/2019 3:33 PM [facility] CO2 25 22 - 29 mmol/L 10/20/2019 3:33 PM [facility] Glucose 96 70 - 115 mg/dL 10/20/2019 3:33 PM [facility] Calcium 9.5 8.4 - 10.2 mg/dL 10/20/2019 3:33 PM [facility] Protein Total 8.2 6.0 - 8.3 g/dL 10/20/2019 3:33 PM [facility] Albumin 4.2 3.4 - 5.0 g/dL 10/20/2019 3:33 PM [facility] Bilirubin Total 1.7(H) 0.2 - 1.2 mg/dL 10/20/2019 3:33 PM [facility] Alkaline Phosphatase 75 40 - 150 Units/L 10/20/2019 3:33 PM [facility] ALT 60(H) 0 - 55 Units/L 10/20/2019 3:33 PM [facility] AST 63(H) 5 - 34 Units/L 10/20/2019 3:33 PM [facility] Anion Gap 16 8 - 18 10/20/2019 3:33 PM [facility] BUN/Creatinine Ratio 12 7 - 23 10/20/2019 3:33 PM [facility] Osmolality Calculated 293 270 - 300 mOsm/kg 10/20/2019 3:33 PM [facility] Albumin/Globulin Ratio 1.1 1.1 - 2.3 10/20/2019 3:33 PM [facility] eGFR >60 >60 mL/min/1.7 3 m2 10/20/2019 3:33 PM [facility] Blood BLOOD SPECIMEN / Unknown Lab Venipuncture / Unknown 10/20/2019 2:41 PM INVENTORY CONTROL SUPERVISOR 10/20/2019 3:01 PM [facility] Radha Palafox STUDENT ASSISTANT-CAR TESTER LAB - CHEMI STRY ORDERABLES [facility] [address] [phone] * HEMOGLOBIN A1C - POINT OF CARE (AMB) [facility] (08/01/2019) Hemoglobin A1c POCT 7.5 BLOOD SPECIMEN / Unknown 08/01/2019 Radha Palafox STUDENT ASSISTANT-CAR TESTER LAB - POINT OF CARE ORDERABLES from Last 3 Months or Most Recently Relevant to Health Maintenance
--- OUTSIDE RECORDS SUMMARY | 2024-09-10 03:43 | XMS_ITS | Encounter Summary ---
Author Organization [facility] Address [address] [place] [address] Care Team Providers Care Optometric Tech Name Role Phone Unavailable Primary Care Provider Unavailabl e Reason for Visit * Reason Onset Date Comments Pre-op Instructions 03/26/2020 Encounter Details Date Type Department Care Team (Late st Contact Info) Description 03/26/2020 Patient Outreach [facility] [address] [place] [id number] Angi Hamilton, RN Pre-op Instructions Social History Tobacco Use Types Packs/Day Years [...] encounter Miscellaneous Notes * Telephone Encounter - Angi Hamilton RN - 03/26/2020 3:40 PM CDT 2nd call about upcoming colonoscopy on 03/28/2020 at 10a. Unable to reach patient documented in this encounter Plan of Treatment Not on file documented as of this encounter Visit Diagnoses Not on filedocumented in this encounter
--- OUTSIDE RECORDS SUMMARY | 2024-09-10 03:43 | XMS_ITS | Encounter Summary ---
Author Organization [facility] Address [address] [place] [address] Care Team Providers Care Stacker Driver Name Role Phone Unavailable Primary Care Provider Unavailabl e Encounter Details Date Type Department Care Team (Latest Contact Info) Description 05/22/2021 Travel Social History Tobacco Use Types Packs/Day Years Used Date Smoking Tobacco: Former Smokeless Tobacco: Never Alcohol Use Standard Drinks/Week Comments No 0 (1 standard drink = 0.6 oz pur e alcohol) Sex and Gender Information Value Date Recorded Sex Assigned at Not on file Gender Identity Not on file Sexual Orientation Not on file COVID-19 Exposure Response Date Recorded In the last month, have you been in contact with someone who was confirmed or suspected to have Coronavirus / COVID-19? No / Unsure 05/22/2021 3:46 PM CDT documented as of this encounter Plan of Treatment Not on file documented as of this encounter Visit Diagnoses Not on filedocumented in this encounter
--- OUTSIDE RECORDS SUMMARY | 2024-09-10 03:43 | XMS_ITS | Patient Health Summary ---
Author Organization [facility] Address [address] [place] [address] Care Team Providers Care Regulatory Internship Name Role Phone Unavailable Primary Care Provider Unavailabl e Note from [facility],non-owned Affiliates and Associated Physician Practices is amultiple site organization consisting of ambulatory clinics and hospital sitesin [place], [place], [place] and [place]. This disclosure is being madepursuant to the Care Everywhere program and may not contain all information available regarding this patient. Last updated 18.[facility] Allergies * Azithromycin(Other) * Bactrim Ds(Rash) * Barium(Other) * Cephalexin(Shortness of Breath) -High Criticality * Contrast-Iodinated Agents For Ct/Other * Doxycycline(Other) * Glimepiride(Urticaria) -Medium Criticality * Levaquin(Hallucinations) * Levetiracetam(Other) -Low Criticality * Levofloxacin(Other) -Medium Criticality * Lidocaine(Rash,Swelling) * Losartan(Angioedema) -High Criticality * Maalox(Shortness of Breath) -High Criticality * Metformin(Other) * Paroxetine * Pepcid(Shortness of Breath) -High Criticality * Oxycodone-Acetaminophen(Palpitations,Other) * Sulfa Drugs * Sulfamethoxazole W-Trimethoprim(Urticaria) -High Criticality * Sulfur(Urticaria,Shortness of Breath) -High Criticality * Ciprofloxacin Hydrochloride(Rash) -Low Criticality,Inactive Medications * Be aware that medications may not be up to date on this document. Alwaysverify current medications with the patient. * sucralfate (CARAFATE) 1 GM tablet(Started 05/14/2019) TK 1 T QID * simethicone (GAS-X) 80 MG chew tablet Take 80 mg by mouth * albuterol HFA (PROVENTIL;VENTOLIN;PROAIR) 108 (90 Base) MCG/ACT inhaler (Started 08/01/2019) INL 1 TO 2 PFS PO Q 4 H PRF SOB 11 refills remaining * fluticasone propionate (FLONASE) 50 MCG/ACT nasal spray(Started 08/01/2019) [place] 2 sprays into each nostril once daily 11 refills remaining * hyoscyamine 0.125 MG tablet(Started 09/30/2019) Take 1 tablet by mouth every 4 hours as needed for Spasms * promethazine (PHENERGAN) 25 MG tablet(Started 10/20/2019) Take 1 tablet by mouth every 6 hours as needed for Nausea/Vomiting * ipratropium (ATROVENT) 0.06 % nasal spray(Started 10/28/2019) [place] 2 sprays into each nostril 3 times daily * cyclobenzaprine (FLEXERIL) 10 MG tablet(Started 10/06/2019) Take 10 mg by mouth 3 times daily as needed * alfuzosin CR 24hr (UROXATRAL) 10 MG tablet(Started 11/09/2019) Take 1 tablet by mouth once daily 3 refills by 11/08/2020 * omeprazole (PRILOSEC) 20 MG capsule(Started 11/17/2019) Take 1 capsule by mouth once daily * predniSONE (DELTASONE) 50 MG tablet(Started 11/23/2019) TAKE 1 TAB @ 13 HRS, 7 HRS, AND [address] * diphenhydrAMINE (BENADRYL) 50 MG capsule(Started 11/23/2019) TAKE [address] * hydrALAZINE (APRESOLINE) 25 MG tablet(Started 12/03/2019) Take 1 tablet by mouth 3 times daily * hydroCHLOROthiazide (MICROZIDE) 12.5 MG capsule(Started 12/04/2019) Take 1 capsule by mouth once daily * trandolapril (MAVIK) 2 MG tablet(Started 12/12/2019) Take 1 tablet by mouth once daily 1 refill by 12/11/2020 * polyethylene glycol (GOLYTELY;NULYTELY) 240 g solution(Started 03/27/2020) Drink 1/2 of prep at 5pm the night before test. Finish the prep at 4am the day of test. * hyoscyamine 0.125 MG tablet(Started 09/02/2020) Take 1 tablet by mouth every 6 hours as needed for Spasms 1 refill by 09/02/2021 * atenolol (TENORMIN) 100 MG tablet(Started 09/02/2020) Take 1 tablet by mouth once daily This will be last times this will be ordered by YAIMA since he has been dismissed from practice. 3 refills by 09/02/2021 * ciprofloxacin (CIPRO) 500 MG tablet(Started 09/02/2020) Take 1 tablet by mouth 2 times daily * ALPRAZolam (Xanax) 1 MG tablet(Started 11/30/2022) Take 1 (one) tablet by mouth 2 times daily as needed for Anxiety Reasons: Feeling Anxious Active Problems Problem Noted Date Diagnosed Date Type 2 diabetes mellitus wit h hyperglycemia, without long-term current use of insulin 09/01/2019 Arthritis 02/13/2019 Asthma 02/13/2019 Benign neoplasm of colon 02/13/2019 Diverticulitis 02/13/2019 Other acute recurrent sinusitis 05/10/2018 Nausea 08/16/2017 Allergic rhinitis 03/12/2017 Benzodiazepine dependence 03/12/2017 Essential hypertension 03/12/2017 Obesity (BMI 30-39.9) 03/12/2017 Recurrent major depressive disorder, in partial remission 03/12/2017 Microcytic anemia 07/02/2015 SOB (shortness of breath) 07/02/2015 Anxiety state 01/08/2015 Neck pain 01/08/2015 Cervical stenosis of spinal canal 08/28/2014 Costochondral chest pain 08/28/2014 Paresthesias with subjective weakness 08/28/2014 PTSD (post-traumatic stress disorder) 08/28/2014 Blurry vision, bilateral 08/28/2014 Diverticulitis of colon 09/11/2013 Colitis 02/02/2013 Panic attack 01/03/2010 Sedative, hypnotic or anxiolytic abuse, continuo us 06/18/2009 Gastroesophageal reflux disease 06/13/2009 Chest pain 01/01/2008 Resolved Problems Problem Noted Date Diagnosed Date Resolved Date Tooth infection 08/16/2017 10/31/2019 Abdominal pain, acute 02/02/20132018 Headache 07/05/2012 08/01/2019 Dizziness 12/05/2009 08/01/2019 Immunizations * TD(Given 09/13/2011) Social History Tobacco Use Types Packs/Day Years [...] Mass Index 32.23 11/30/2022 5:34 AM CDT Procedures * CULTURE URINE(Performed 11/09/2019) Performed for Lower urinary tract symptoms (LUTS) * URINALYSIS AUTO - POINT OF CARE (AMB) [facility]U(Performed 11/09/2019) Performed for Lower urinary tract symptoms (LUTS) * XR LUMBAR SPINE 4VW OR MORE(Performed 10/20/2019) Performed for Chronic low back pain without sciatica, unspecified back pain laterality * HCV COMMENT(Performed 10/20/2019) Performed for Type 2 diabetes mellitus without complication, without long-term current use of insulin (HCC), Need for hepatitis C screening test * COMPREHENSIVE METABOLIC PANEL(Performed 10/20/2019) Performed for Type 2 diabetes mellitus without complication, without long-term current use of insulin (HCC), Obesity with serious comorbidity, unspecified classification, unspecified obesity type * TSH(Performed 10/20/2019) Performed for Type 2 diabetes mellitus without complication, without long-term current use of insulin (HCC), Depression, unspecified depression type, Panic attacks, Obesity with serious comorbidity, unspecified classification, unspecified obesity type * URINALYSIS REFLEX TO MICROSCOPIC NO CULTURE(Performed 10/20/2019) Performed for Type 2 diabetes mellitus without complication, without long-term current use of insulin ([facility]) * MICROALB/CREAT RATIO URINE RANDOM PANEL(Performed 10/20/2019) Performed for Type 2 diabetes mellitus without complication, without long-term current use of insulin (HCC) * LIPID PROFILE(Performed 10/20/2019) Performed for Type 2 diabetes mellitus without complication, without long-term current use of insulin (HCC), Obesity with serious comorbidity, unspecified classification, unspecified obesity type * HEPATITIS C AB W RFLX VERIFICATION(Performed 10/20/2019) Performed for Type 2 diabetes mellitus without complication, without long-term current use of insulin (HCC), Need for hepatitis C screening test * CBC W AUTO DIFFERENTIAL(Performed 10/20/2019) Performed for Type 2 diabetes mellitus without complication, without long-term current use of insulin (HCC), Obesity with serious comorbidity, unspecified classification, unspecified obesity type * HEMOGLOBIN A1C - POINT OF CARE (AMB) [facility](Performed 08/01/2019) Performed for Type 2 diabetes mellitus without complication, without long-term current use of insulin (HCC) * XR CERVICAL SPINE 2 OR 3VW(Performed 10/24/2016) Performed for Neck pain * CT ABDOMEN PELVIS WO CONTRAST(Performed 07/30/2015) Performed for Abdominal pain, left lower quadrant * MONONUCLEOSIS SCREEN(Performed 07/29/2015) * URINALYSIS REFLEX MICROSCOPIC REFLEX CULTURE(Performed 07/29/2015) * URINE DRUG SCREEN IMMUNOASSAY(Performed 07/29/2015) * XR CHEST 2VW(Performed 07/29/2015) Performed for Weakness * CT HEAD WO CONTRAST(Performed 07/29/2015) Performed for Weakness * ALCOHOL ETHYL BLOOD(Performed 07/29/2015) * ACETAMINOPHEN LEVEL(Performed 07/29/2015) * MAGNESIUM BLOOD(Performed 07/29/2015) * COMPREHENSIVE METABOLIC PANEL(Performed 07/29/2015) * CBC W AUTO DIFFERENTIAL(Performed 07/29/2015) * GLUCOSE - POINT OF CARE(Performed 08/05/2014) * XR CHEST 2VW(Performed 08/05/2014) Performed for Chest pain * URINALYSIS REFLEX MICROSCOPIC REFLEX CULTURE(Performed 08/04/2014) * CULTURE URINE(Performed 08/04/2014) * EKG 12-LEAD(Performed 08/04/2014) Performed for Chest pain * CULTURE URINE(Performed 04/30/2014) * CT ABDOMEN PELVIS WO CONTRAST(Performed 10/09/2013) * LIPASE BLOOD(Performed 10/09/2013) * AMYLASE BLOOD(Performed 10/09/2013) * COMPREHENSIVE METABOLIC PANEL(Performed 10/09/2013) * CBC W AUTO DIFFERENTIAL(Performed 10/09/2013) * DRUG ABUSE PANEL 10-20+ETHANOL URINE NO CONFIRM(Performed 10/09/2013) * URINALYSIS REFLEX TO MICROSCOPIC NO CULTURE(Performed 10/09/2013) * EKG 12-LEAD(Performed 10/09/2013) * CT ABDOMEN PELVIS WO CONTRAST(Performed 09/11/2013) Performed for Abdominal pain, acute * CBC W AUTO DIFFERENTIAL(Performed 09/11/2013) * EKG 12-LEAD(Performed 09/11/2013) Performed for Panic attack * INFLUENZA A+B ANTIGEN RAPID(Performed 09/11/2013) * URINALYSIS REFLEX MICROSCOPIC REFLEX CULTURE(Performed 09/11/2013) * COMPREHENSIVE METABOLIC PANEL(Performed 09/11/2013) * LIPASE BLOOD(Performed 09/11/2013) * URINALYSIS REFLEX MICROSCOPIC REFLEX CULTURE(Performed 06/26/2013) * CT ABDOMEN PELVIS WO CONTRAST(Performed 02/02/2013) Performed for Abdominal pain, acute * COMPREHENSIVE METABOLIC PANEL(Performed 02/02/2013) * LIPASE BLOOD(Performed 02/02/2013) * URINALYSIS REFLEX MICROSCOPIC REFLEX CULTURE(Performed 02/02/2013) * CBC W AUTO DIFFERENTIAL(Performed 02/02/2013) * EKG 12-LEAD(Performed 07/28/2012) * EKG 12-LEAD(Performed 07/22/2012) * DRUG SCREEN URINE TRIAGE PANEL(Performed 01/30/2012) * URINALYSIS REFLEX TO MICROSCOPIC NO CULTURE(Performed 10/30/2011) * URINALYSIS REFLEX TO MICROSCOPIC NO CULTURE(Performed 10/30/2011) * CBC W AUTO DIFFERENTIAL(Performed 10/30/2011) * URINALYSIS - POINT OF CARE (AMB) [facility](Performed 10/30/2011) * LAB HISTORICAL RESULTS-ONBASE(Performed 10/30/2011) * LAB HISTORICAL RESULTS-ONBASE(Performed 10/30/2011) * MYOGLOBIN BLOOD - POINT OF CARE(Performed 01/03/2010) Performed for Anxiety State, Unspecified * TROPONIN - POINT OF CARE(Performed 01/03/2010) Performed for Anxiety State, Unspecified * B-TYPE NATRIURETIC PEPTIDE - POINT OF CARE(Performed 01/03/2010) Performed for Anxiety State, Unspecified * CKMB - POINT OF CARE(Performed 01/03/2010) Performed for Anxiety State, Unspecified * DRUG SCREEN URINE TRIAGE PANEL(Performed 01/03/2010) Performed for Anxiety State, Unspecified * EKG 12-LEAD(Performed 01/03/2010) Performed for Panic Attack * CARDIAC EKG ORDER(Performed 12/07/2009) * CARDIAC EKG ORDER(Performed 12/06/2009) * TROPONIN I(Performed 12/05/2009) * LIPASE BLOOD(Performed 12/05/2009) * COMPREHENSIVE METABOLIC PANEL(Performed 12/05/2009) * CBC W AUTO DIFFERENTIAL(Performed 12/05/2009) * GLUCOSE - POINT OF CARE(Performed 11/30/2009) * DRUG SCREEN URINE ABUSE INHOUSE(Performed 11/30/2009) * URINALYSIS REFLEX TO MICROSCOPIC NO CULTURE(Performed 11/30/2009) * URINALYSIS REFLEX MICROSCOPIC REFLEX CULTURE(Performed 11/23/2009) Performed for Panic Disorder without Agoraphobia * CARDIAC EKG ORDER(Performed 01/12/2008) * CARDIAC EKG ORDER(Performed 01/12/2008) * CARDIAC EKG ORDER(Performed 01/12/2008) * CARDIAC EKG ORDER(Performed 01/12/2008) * MYOGLOBIN BLOOD(Performed 01/01/2008) Performed for Unspecified Chest Pain * R/O [place] PROFILE(Performed 01/01/2008) Performed for Unspecified Chest Pain * PT PTT PANEL(Performed 01/01/2008) Performed for Unspecified Chest Pain * COMPREHENSIVE METABOLIC PANEL(Performed 01/01/2008) Performed for Unspecified Chest Pain * CBC W AUTO DIFFERENTIAL(Performed 01/01/2008) Performed for Unspecified Chest Pain * XR CHEST 1VW PORTABLE(Performed 01/01/2008) Performed for Chest Pain Results * CULTURE URINE (11/09/2019 2:41 PM RECEIVING TANK OPERATOR) Only the most recent of3 resultswithin the time period is included. Culture Urine No growth (<100 CFU/mL) KATIE 11/11/2019 7:21 AM RECEIVING TANK OPERATOR [facility] Urine URINE SPECIMEN OBTAINED BY CLEAN CATCH PROCEDURE / Unknown Collection / Unknown 11/09/2019 2:41 PM RECEIVING TANK OPERATOR 11/09/2019 2:56 PM RECEIVING TANK OPERATOR Regina Lara APRN-QUICK TECHNICIAN LAB - MICROBIOLO GY ORDERABLES [facility] [address] [place], [place] [address], [facility] [phone] * URINALYSIS AUTO - POINT OF CARE (AMB) [facility] (11/09/2019 10:21 AM RECEIVING TANK OPERATOR) Glucose UA - Bilirubin UA POCT 1+ Ketones UA POCT - Specific [place] UA 1.025 Blood Urine POCT - pH UA 6.0 Protein UA 1+ Urobilinogen UA +- Nitrite UA - WBC UA +- Urine URINE / Unknown 11/09/2019 1 0:21 AM RECEIVING TANK OPERATOR Regina Lara GUEST SERVICES DIRECTOR-QUICK TECHNICIAN LAB - POINT OF C ARE ORDERABLES * XR LUMBAR SPINE 4VW OR MORE (10/20/2019 3:18 PM RECEIVING TANK OPERATOR) Anatomical Region Laterality Modality Spine Radiographic Katarzyna ging 10/20/2019 3:23 PM RECEIVING TANK OPERATOR Impressions 10/20/2019 3:38 PM RECEIVING TANK OPERATOR IMPRESSION: No acute fracture or subluxation identified. Multilevel degenerative changes. Dictated by Devon Jolly MD (residential remodeling subcontractor) I, Dr. COURTNEY BILLINGS M.D. have personally reviewed and interpreted this examination/study. This report was electronically signed by COURTNEY BILLINGS M.D. ??on 10/20/2019 3:38 PM . Narrative 10/20/2019 3:38 PM RECEIVING TANK OPERATOR EXAMINATION: XR LUMBAR SPINE 4VW OR MORE HISTORY: M54.5: Chronic low back pain without sciatica, unspecified back pain laterality G89.29: Chronic low back pain without sciatica, unspecified back pain laterality COMPARISON: No prior study is available for comparison at the time of this dictation. FINDINGS: The vertebral bodies are normally aligned, including on AP, lateral, flexion and extension views. There is no fracture or compression deformity. There are multilevel degenerative changes with osteophyte formation. There is mild intervertebral disc space narrowing seen at multiple levels. There is multilevel facet arthropathy. The sacroiliac joints are normal. Procedure Note Courtney Billings MD - 10/20/2019 EXAMINATION: XR LUMBAR SPINE 4VW OR MORE HISTORY: M54.5: Chronic low back pain without sciatica, unspecified back pain laterality G89.29: Chronic low back pain without sciatica, unspecified back pain laterality COMPARISON: No prior study is available for comparison at the time ofthis dictation. FINDINGS: The vertebral bodies are normally aligned, including on AP, lateral, flexion and extension views. There is no fracture or compression deformity. There are multilevel degenerative changes with osteophyte formation. There is mild intervertebral disc space narrowing seen at multiple levels. There is multilevel facet arthropathy. The sacroiliac joints are normal. IMPRESSION: No acute fracture or subluxation identified. Multilevel degenerative changes. Dictated by Devon Jolly MD (residential remodeling subcontractor) I, Dr. COURTNEY BILLINGS M.D. have personally reviewed and interpretedthis examination/study. This report was electronically signed by COURTNEY BILLIGNS M.D. on10/20/2019 3:38 PM . Radha Palafox APRN-[facility] DIAGNOSTIC IMAGING ORDERABLES * HEPATITIS C AB W RFLX VERIFICATION (10/20/2019 2:41 PM RECEIVING TANK OPERATOR) Pathologist [facility] Hepatitis C Antibody <0.1 0.0 - 0.9 s/co ratio 10/21/2019 8:18 AM RECEIVING TANK OPERATOR [facility] ([facility]) Blood BLOOD SPECIMEN / Unknown Lab Venipuncture / Unknown 10/20/2019 2:41 PM RECEIVING TANK OPERATOR 10/20/2019 3:01 PM RECEIVING TANK OPERATOR Narrative [facility] ([facility]) - 10/21/2019 8:18 AM RECEIVING TANK OPERATOR Performed at: ??01 - [facility] [address] [place], [place] ??[id number] Pipe Layer Helper: Carlos Woods PhD, Phone: ??[phone] Radha Palafox [facility] LAB - CHEMI STRY ORDERABLES [facility] ([facility]) [address] [place] [address] * HCV COMMENT (10/20/2019 2:41 PM RECEIVING TANK OPERATOR) Comment Comment 10/21/2019 8:18 AM RECEIVING TANK OPERATOR [facility] ([facility]) Comment: Non reactive HCV antibody screen is consistent with no HCV infection, unless recent infection is suspected or other evidence exists to indicate HCV infection. Blood BLOOD SPECIMEN / Unknown Lab Venipuncture / Unknown 10/20/2019 2:41 PM RECEIVING TANK OPERATOR 10/20/2019 3:01 PM RECEIVING TANK OPERATOR Narrative [facility] ([facility]) - 10/21/2019 8:18 AM RECEIVING TANK OPERATOR Performed at: ??01 - [facility] [address], [place], [place] ??[id number] Pipe Layer Helper: Carlos Woods PhD, Phone: [phone] [facility] - CHEMI STRY ORDERABLES Performing Organization Address [facility] Co de Phone Number [facility] ([facility]) [address] [place] [address] * (ABNORMAL) MICROALB/CREAT RATIO URINE RANDOM PANEL (10/20/2019 2:41 PM RECEIVING TANK OPERATOR) Pathologist [facility] Albumin Random Urine 65.0 Not Established mcg/mL 10/20/2019 4:57 PM RECEIVING TANK OPERATOR [facility] Creatinine Urine 143 Not Established mg/dL 10/20/2019 4:57 PM [facility] Comment: Result obtained by dilution. Urine Albumin/Creati nine Ratio 45(H) <30 mg/g 10/20/2019 4:57 PM [facility] Urine URINE SPECIMEN OBTAINED BY CLEAN CATCH PROCEDURE / Unknown Collection / Unknown 10/20/2019 2:41 PM RECEIVING TANK OPERATOR 10/20/2019 3:01 PM RECEIVING TANK OPERATOR [facility] - URINE CHEMISTRY ORDERABLES Performing Organization Address City/[facility]/ZIP Co de Phone Number [address] [phone] * URINALYSIS REFLEX TO MICROSCOPIC NO CULTURE (10/20/2019 2:41 PM RECEIVING TANK OPERATOR) Only the most recent of5 resultswithin the time period is included. Color UA Yellow Straw, Yellow, Colorless 10/20/2019 3:28 PM RECEIVING TANK OPERATOR [facility] Clarity UA Clear Clear, Slt Cloudy 10/20/2019 3:28 PM [facility] Specific [place] UA 1.015 1.005 - 1.030 10/20/2019 3:28 PM [facility] pH UA 6.0 5.0 - 8.0 pH 10/20/2019 3:28 PM [facility] Protein UA Negative Negative mg/dL 10/20/2019 3:28 PM [facility] Glucose UA Negative Negative mg/dL 10/20/2019 3:28 PM [facility] Ketone UA Negative Negative mg/dL 10/20/2019 3:28 PM [facility] Bilirubin UA Negative Negative mg/dL 10/20/2019 3:28 PM [facility] Blood UA Negative Negative 10/20/2019 3:28 PM [facility] Nitrite UA Negative Negative 10/20/2019 3:28 PM [facility] Leukocyte Esterase Negative Negative 10/20/2019 3:28 PM [facility] Urobilinogen UA Negative Negative mg/dL 10/20/2019 3:28 PM [facility] RBC UA 0-2 None Seen, 0-2, 3-5 /HPF 10/20/2019 3:28 PM [facility] WBC UA 0-5 None Seen, 0-5 /HPF 10/20/2019 3:28 PM [facility] Squamous Epithelial Cells UA None Seen None Seen, 0-2 /HPF 10/20/2019 3:28 PM [facility] Mucus UA 1+ None, 1+ /LPF 10/20/2019 3:28 PM [facility] Urine URINE SPECIMEN OBTAINED BY CLEAN CATCH PROCEDURE / Unknown Collection / Unknown 10/20/2019 2:41 PM RECEIVING TANK OPERATOR 10/20/2019 3:01 PM RECEIVING TANK OPERATOR [facility] - 10/20/2019 3:28 PM RECEIVING TANK OPERATOR Radha Palafox GUEST SERVICES DIRECTOR-QUICK TECHNICIAN LAB - URINA LYSIS ORDERABLES [address] [phone] * (ABNORMAL) CBC WITH DIFFERENTIAL (10/20/2019 2:41 PM RECEIVING TANK OPERATOR) Only the most recent of8 resultswithin the time period is included. WBC 7.1 3.5 - 10.5 10? 3 /uL 10/20/2019 3:06 PM [facility] RBC 5.94(H) 4.30 - 5.70 10? 6 /uL 10/20/2019 3:06 PM [facility] Hemoglobin 14.4 13.5 - 17.5 g/dL 10/20/2019 3:06 PM [facility] Hematocrit 44.7 39.0 - 50.0 % 10/20/2019 3:06 PM [facility] MCV 75.3(L) 81.0 - 97.0 fL 10/20/2019 3:06 PM [facility] MCH 24.2(L) 28.0 - 34.0 pg 10/20/2019 3:06 PM [facility] MCHC 32.2 32.0 - 36.0 g/dL 10/20/2019 3:06 PM [facility] Platelet Count 196 150 - 400 10? 3 /uL 10/20/2019 3:06 PM [facility] RDW-SD 39.6 36.0 - 50.0 fL 10/20/2019 3:06 PM [facility] RDW-CV 14.6 11.2 - 14.8 % 10/20/2019 3:06 PM [facility] MPV 9.4 9.3 - 12.8 fL 10/20/2019 3:06 PM [facility] nRBC Absolute 0.00 0 10? 3 /uL 10/20/2019 3:06 PM [facility] nRBC Auto 0.0 0 /100 WBC 10/20/2019 3:06 PM [facility] Neutrophils % 63.6 35.0 - 70.0 % 10/20/2019 3:06 PM [facility] Lymphocytes % 25.4 19.7 - 55.1 % 10/20/2019 3:06 PM [facility] Monocytes % 7.6 3.0 - 15.0 % 10/20/2019 3:06 PM [facility] Eosinophils % 2.7 0.0 - 6.0 % 10/20/2019 3:06 PM [facility] Basophil % 0.6 0.0 - 1.5 % 10/20/2019 3:06 PM [facility] Neutrophils Absolute 4.5 1.6 - 7.0 10? 3 /uL 10/20/2019 3:06 PM [facility] Lymphocyte Absolute 1.8 0.8 - 2.9 10? 3 /uL 10/20/2019 3:06 PM [facility] Monocytes Absolute 0.54 0.14 - 0.66 10? 3 /uL 10/20/2019 3:06 PM [facility] Eosinophils Absolute 0.19 0.00 - 0.45 10? 3 /uL 10/20/2019 3:06 PM [facility] Basophils Absolute 0.04 0.00 - 0.06 10? 3 /uL 10/20/2019 3:06 PM [facility] Immature Granulocytes % 0.1 0.0 - 1.0 % 10/20/2019 3:06 PM [facility] Blood BLOOD SPECIMEN / Unknown Lab Venipuncture / Unknown 10/20/2019 2:41 PM RECEIVING TANK OPERATOR 10/20/2019 3:01 PM RECEIVING TANK OPERATOR Radha Palafox GUEST SERVICES DIRECTOR-QUICK TECHNICIAN LAB - HEMAT OLOGY ORDERABLES [address] [phone] * (ABNORMAL) COMPREHENSIVE METABOLIC PANEL (10/20/2019 2:41 PM RECEIVING TANK OPERATOR) Only the most recent of7 resultswithin the time period is included. BUN 11 7 - 26 mg/dL 10/20/2019 3:33 PM [facility] Creatinine 0.9 0.6 - 1.2 mg/dL 10/20/2019 3:33 PM [facility] Sodium 142 136 - 145 mmol/L 10/20/2019 3:33 PM [facility] Potassium 3.3(L) 3.5 - 4.5 mmol/L 10/20/2019 3:33 PM [facility] Chloride 104 98 - 107 mmol/L 10/20/2019 3:33 PM [facility] CO2 25 22 - 29 mmol/L 10/20/2019 3:33 PM [facility] Glucose 96 70 - 115 mg/dL 10/20/2019 3:33 PM [facility] Calcium 9.5 8.4 - 10.2 mg/dL 10/20/2019 3:33 PM [facility] Protein Total 8.2 6.0 - 8.3 g/dL 10/20/2019 3:33 PM [facility] Albumin 4.2 3.4 - 5.0 g/dL 10/20/2019 3:33 PM [facility] Bilirubin Total 1.7(H) 0.2 - 1.2 mg/dL 10/20/2019 3:33 PM [facility] Alkaline Phosphatase 75 40 - 150 Units/L 10/20/2019 3:33 PM [facility] ALT 60(H) 0 - 55 Units/L 10/20/2019 3:33 PM [facility] AST 63(H) 5 - 34 Units/L 10/20/2019 3:33 PM [facility] Anion Gap 16 8 - 18 10/20/2019 3:33 PM [facility] BUN/Creatinine Ratio 12 7 - 23 10/20/2019 3:33 PM [facility] Osmolality Calculated 293 270 - 300 mOsm/kg 10/20/2019 3:33 PM [facility] Albumin/Globulin Ratio 1.1 1.1 - 2.3 10/20/2019 3:33 PM [facility] eGFR >60 >60 mL/min/1.7 3 m2 10/20/2019 3:33 PM [facility] Blood BLOOD SPECIMEN / Unknown Lab Venipuncture / Unknown 10/20/2019 2:41 PM RECEIVING TANK OPERATOR 10/20/2019 3:01 PM RECEIVING TANK OPERATOR Radha Palafox GUEST SERVICES DIRECTOR-QUICK TECHNICIAN LAB - CHEMI STRY ORDERABLES [address] [phone] * TSH (10/20/2019 2:41 PM RECEIVING TANK OPERATOR) TSH 1.644 0.350 - 4.940 uIU/mL 10/20/2019 3:53 PM [facility] Blood BLOOD SPECIMEN / Unknown Lab Venipuncture / Unknown 10/20/2019 2:41 PM RECEIVING TANK OPERATOR 10/20/2019 3:01 PM RECEIVING TANK OPERATOR Radha Palafox GUEST SERVICES DIRECTOR-QUICK TECHNICIAN LAB - CHEMI STRY ORDERABLES [address] [phone] * (ABNORMAL) LIPID PROFILE (10/20/2019 2:41 PM [facility]) Cholesterol Total 173 <200 mg/dL 10/20/2019 3:33 PM [facility] HDL 21(L) >40 mg/dL 10/20/2019 3:33 PM [facility] Comment: ATP III Classification of HDL Cholesterol: ? <40 mg/dL: ??Considered a major risk factor. ? >60 mg/dL: ??Considered a negative risk factor. ? LDL Calculated 104(H) <100 mg/dL 10/20/2019 3:33 PM [facility] Comment: ATP III Classification of LDL Cholesterol: ?<100 mg/dL: ??Optimal ? 100 - 129 mg/dL: ??Near Optimal/Above Optimal ? 130 - 159 mg/dL: ??Borderline High ? 160 - 189 mg/dL: ??High ?>190 mg/dL: ??Very High ? Triglycerides 240(H) <150 mg/dL 10/20/2019 3:33 PM [facility] Comment: ATP III Classification of Triglycerides: ?<150 mg/dL: ??Normal ? 150 - 199 mg/dL: ??Borderline High ? 200 - 400 mg/dL: ??High ?>500 mg/dL: ??Very High Blood BLOOD SPECIMEN / Unknown Lab Venipuncture / Unknown 10/20/2019 2:41 PM RECEIVING TANK OPERATOR 10/20/2019 3:01 PM RECEIVING TANK OPERATOR Radha Conte Vivienne GUEST SERVICES DIRECTOR-QUICK TECHNICIAN LAB - CHEMI STRY ORDERABLES [address] [phone] * HEMOGLOBIN A1C - POINT OF CARE (AMB) [facility] (08/01/2019) Hemoglobin A1c POCT 7.5 BLOOD SPECIMEN / Unknown 08/01/2019 Radha Conte Vivienne GUEST SERVICES DIRECTOR-QUICK TECHNICIAN LAB - POINT OF CARE ORDERABLES * XR CERVICAL SPINE 2 OR 3 VW (10/24/2016 2:40 AM RECEIVING TANK OPERATOR) Anatomical Region Laterality Modality Spine Radiographic Katarzyna ging 10/24/2016 7:09 AM RECEIVING TANK OPERATOR Impressions 10/24/2016 7:10 AM RECEIVING TANK OPERATOR The spinal alignment is normal. The prevertebral soft tissues also appear normal. Mild degenerative disc disease is seen at C5-C6. The C7 vertebral body is not well seen in the lateral view. The C1-C2 articulation appears normal. Narrative 10/24/2016 7:10 AM RECEIVING TANK OPERATOR Exam: Cervical spine, 5 views. History: Cervalgia. Procedure Note Fernando Kiser MD - 10/24/2016 Exam: Cervical spine, 5 views. History: Cervalgia. IMPRESSION The spinal alignment is normal. The prevertebral soft tissues also appear normal. Mild degenerative disc disease is seen at C5-C6. The C7 vertebral body is not well seen in the lateral view. The C1-C2 articulation appears normal. Stanton Wu PA-C DIAGNOSTIC IMAGING ORDERABLES * CT ABDOMEN AND PELVIS NON IV CONTRAST (07/30/2015 2:22 AM RECEIVING TANK OPERATOR) Only the most recent of4 resultswithin the time period is included. Anatomical Region Laterality Modality Abdomen, Pelvis Computed Tomogra phy 07/30/2015 7:53 AM RECEIVING TANK OPERATOR Impressions 07/30/2015 8:05 AM RECEIVING TANK OPERATOR Thickened sigmoid colon wall with associated diverticula. Findings could be compatible with sigmoid diverticulitis. Other causes for sigmoid wall thickening should be excluded. Edited by Seema Garsia on 07/30/2015 8:00 AM Narrative 07/30/2015 8:05 AM RECEIVING TANK OPERATOR CT ABDOMEN AND PELVIS WITHOUT CONTRAST History: Left lower quadrant abdominal pain. Images are provided from above the diaphragm to the pubic symphysis without oral or intravenous contrast. Lung bases are generally clear. There is no pleural or pericardial effusion. No discrete abnormality is seen in the liver, spleen or pancreas. Gallbladder is surgically absent. There is a nonobstructing left renal calculus and a small nonobstructing right renal calculus. There is no retroperitoneal adenopathy. The appendix appears normal. Colonic diverticula are present. There is thickwalled sigmoid colon noted with slight pericolonic haziness. Findings could be compatible with sigmoid diverticulitis. There is no extraluminal gas or fluid collection seen however. Urinary bladder is unremarkable. Procedure Note Marcus Negrete MD - 07/30/2015 CT ABDOMEN AND PELVIS WITHOUT CONTRAST History: Left lower quadrant abdominal pain. Images are provided from above the diaphragm to the pubic symphysis without oral or intravenous contrast. Lung bases are generally clear. There is no pleural or pericardial effusion. No discrete abnormality is seen in the liver, spleen or pancreas. Gallbladder is surgically absent. There is a nonobstructing left renal calculus and a small nonobstructing right renal calculus. There is no retroperitoneal adenopathy. The appendix appears normal. Colonic diverticula are present. There is thickwalled sigmoid colon noted with slight pericolonic haziness. Findings could be compatible with sigmoid diverticulitis. There is no extraluminal gas or fluid collection seen however. Urinary bladder is unremarkable. IMPRESSION Thickened sigmoid colon wall with associated diverticula. Findings could be compatible with sigmoid diverticulitis. Other causes for sigmoid wall thickening should be excluded. Edited by Seema Garsia on 07/30/2015 8:00 AM Emani Chaudhari MD CT ORDERABLES * (ABNORMAL) URINALYSIS ROUTINE W/REFLEX TO CULTURE (07/29/2015 11:41 PM RECEIVING TANK OPERATOR) Only the most recent of6 resultswithin the time period is included. Color UA Yellow Straw, Yellow, Dark Yellow 07/30/2015 12:[address] [facility] Clarity UA Clear 07/30/2015 12:[address] [facility] Specific [place] UA 1.018 1.005 - 1.030 07/30/2015 12:[address] [facility] pH UA 6.0 5.0 - 8.0 pH 07/30/2015 12:[address] [facility] Protein UA Trace(A) Negative 07/30/2015 12:[address] [facility] Blood UA Negative Negative 07/30/2015 12:[address] [facility] Leukocyte UA Negative Negative 07/30/2015 12:[address] [facility] Nitrite UA Negative Negative 07/30/2015 12:[address] [facility] Glucose UA Negative Negative 07/30/2015 12:[address] [facility] Ketone UA Negative Negative 07/30/2015 12:[address] [facility] Bilirubin UA Negative Negative 07/30/2015 12:[address] [facility] Urobilinogen UA 0.2 0.1 - 1.0 EU/dL 07/30/2015 12:[address] [facility] Reflex Status Culture not indicated 07/30/2015 12:[address] [facility] Urine URINE SPECIMEN OBTAINED BY CLEAN CATCH PROCEDURE / Unknown Collection / Unknown 07/29/2015 11:41 PM RECEIVING TANK OPERATOR 07/30/2015 12:30 AM RECEIVING TANK OPERATOR Emani Chaudhari MD LAB - URINALYSIS ORD ERABLES Performing Organization Address [facility] Co de Phone Number [facility] [address] [place] [address] * MONONUCLEOSIS SCREEN (07/29/2015 11:41 PM RECEIVING TANK OPERATOR) Mononucleosis Screen Negative Negative 07/30/2015 12:[address] [facility] Blood BLOOD SPECIMEN / Unknown Venipuncture / Unknown 07/29/2015 11:41 PM RECEIVING TANK OPERATOR 07/30/2015 12:12 AM RECEIVING TANK OPERATOR Emani Chaudhari MD LAB - CHEMISTRY ORDE RABLES Performing Organization Address [facility] Co de Phone Number [facility] [address] [place] [phone] * (ABNORMAL) DRUG SCREEN TOX URINE PANEL (07/29/2015 11:41 PM RECEIVING TANK OPERATOR) Amphetamines Screen Urine Not Detected Not Detected 07/30/2015 12:[address] [facility] Barbiturates Screen Urine Not Detected Not Detected 07/30/2015 12:[address] [facility] Benzodiazepines Screen Urine Detected(A) Not Detected 07/30/2015 12:[address] [facility] Cannabinoids Screen Urine Not Detected Not Detected 07/30/2015 12:[address] [facility] Cocaine Screen Urine Not Detected Not Detected 07/30/2015 12:[address] [facility] Methadone Screen Urine Not Detected Not Detected 07/30/2015 12:[address] [facility] Opiate Screen Urine Not Detected Not Detected 07/30/2015 12:[address] [facility] Phencyclidine Screen Urine Not Detected Not Detected 07/30/2015 12:[address] [facility] Urine URINE / Unknown 07/29/2015 1 1:41 PM RECEIVING TANK OPERATOR 07/29/2015 11:48 PM RECEIVING TANK OPERATOR Narrative [facility] - 07/30/2015 12:00 AM [facility] This drug screen is designed for MEDICAL purposes only. It is not to be used for legal purposes, including but not limited to worker's comp, police investigations, occupational issues, child custody, etc. ??Any positive result is only presumptive and must be confirmed with a separate confirmatory test ordered by the physician. Drug Screening Test Cutoff Values: AMPHETAMINES ?1000 ng/mL BARBITURATES ? 200 ng/mL BENZODIAZEPINES ??200 ng/mL CANNABINOIDS(THC) 50 ng/mL COCAINE ?300 ng/mL METHADONE ?300 ng/mL OPIATES ?300 ng/mL PHENCYCLIDINE(PCP)25 ng/mL Emani Chaudhari MD LAB - URINE CHEMISTR Y ORDERABLES [facility] [address] [place] [address] * XR CHEST PA AND LATERAL (07/29/2015 11:19 PM RECEIVING TANK OPERATOR) Only the most recent of2 resultswithin the time period is included. Anatomical Region Laterality Modality Chest Radiographic Katarzyna ging 07/30/2015 7:15 AM RECEIVING TANK OPERATOR Impressions 07/30/2015 7:16 AM RECEIVING TANK OPERATOR Clear lungs. Narrative 07/30/2015 7:16 AM RECEIVING TANK OPERATOR Chest x-ray 2 views. History: Weakness. 2 views of the chest are compared to a prior exam of 08/04/2014. Heart size is normal. Lungs are clear. Procedure Note Marcus Negrete MD - 07/30/2015 Chest x-ray 2 views. History: Weakness. 2 views of the chest are compared to a prior exam of 08/04/2014. Heart size is normal. Lungs are clear. IMPRESSION Clear lungs. Emani Chaudhari MD DIAGNOSTIC IMAGING O RDERABLES * CT HEAD NON CONTRAST (07/29/2015 10:58 PM RECEIVING TANK OPERATOR) Anatomical Region Laterality Modality Head Computed Tomogra phy 07/30/2015 7:24 AM RECEIVING TANK OPERATOR Impressions 07/30/2015 7:30 AM RECEIVING TANK OPERATOR Unremarkable study. Edited by Seema Garsia on 07/30/2015 7:29 AM Narrative 07/30/2015 7:30 AM [address]CEIVING TANK OPERATOR CT BRAIN WITHOUT CONTRAST History: Somnolence, dizziness. A non-infusion study from the skull base to the vertex shows no mass or hemorrhage. No extracerebral fluid collections are seen. Bone windows demonstrate no gross skull lesion. The visible sinuses and mastoids are clear. Procedure Note Marcus Negrete MD - 07/30/2015 CT BRAIN WITHOUT CONTRAST History: Somnolence, dizziness. A non-infusion study from the skull base to the vertex shows no mass or hemorrhage. No extracerebral fluid collections are seen. Bone windows demonstrate no gross skull lesion. The visible sinuses and mastoids are clear. IMPRESSION Unremarkable study. Edited by Seema Garsia on 07/30/2015 7:29 AM Emani Chaudhari MD CT ORDERABLES * ALCOHOL ETHYL BLOOD (07/29/2015 10:50 PM RECEIVING TANK OPERATOR) Ethanol <10 <10 mg/dL 07/29/2015 11:13 PM RECEIVING TANK OPERATOR [facility] Ethanol Calculated <0.100 gm/dL 07/29/2015 11:[address] [facility] Blood BLOOD SPECIMEN / Unknown Venipuncture / Unknown 07/29/2015 10:50 PM RECEIVING TANK OPERATOR 07/29/2015 10:50 PM RECEIVING TANK OPERATOR Narrative [facility] - 07/29/2015 11:13 PM RECEIVING TANK OPERATOR Non Legal Serum Alcohol Emani Chaudhari MD LAB - CHEMISTRY [place] Performing Organization Address [facility] de Phone Number [facility] [address] [place] [address] * (ABNORMAL) ACETAMINOPHEN LEVEL (07/29/2015 10:50 PM RECEIVING TANK OPERATOR) Acetaminophen <2.0(L) 10.0 - 30.0 ug/mL 07/29/2015 11:[address] [facility] Blood BLOOD SPECIMEN / Unknown Venipuncture / Unknown 07/29/2015 10:50 PM RECEIVING TANK OPERATOR 07/29/2015 10:50 PM RECEIVING TANK OPERATOR Narrative [facility] - 07/29/2015 11:13 PM [facility] ACETAMINOPHEN COMMENT Critical values: 4 Hours Post Ingestion: Critical value ?? > 200 ??g/mL 12 Hours Post Ingestion: Critical value ??> ??50 ??g/mL For acute ingestion, please refer to Acetaminophen nomogram to determine the ??risk of toxicity ??based on time since ingestion and acetaminophen level (see link provided). Note the nomogram disclaimer. WARNING: Assessing the potential toxicity of an acetaminophen level on a standard risk nomogram must take into consideration many factors including any uncertainty of the time since ingestion or the possibility of other medications that may alter the peak level. Contact the [facility] at or reserved for healthcare professionals to assist you in evaluating potentially toxic acetaminophen levels. Emani Chaudhari MD LAB - CHEMISTRY [place] Performing Organization Address [facility]/ZIP Co de Phone Number [facility] [address] [place] [address] * MAGNESIUM BLOOD (07/29/2015 9:26 PM RECEIVING TANK OPERATOR) Magnesium 1.9 1.6 - 2.6 mg/dL 07/30/2015 12:24 AM RECEIVING TANK OPERATOR [facility] Blood BLOOD SPECIMEN / Unknown 07/29/2015 9:26 PM RECEIVING TANK OPERATOR 07/29/2015 9:31 PM RECEIVING TANK OPERATOR Emani Chaudhari MD LAB - CHEMISTRY [place] [facility] [address] [place] [address] * GLUCOSE - POINT OF CARE (08/05/2014 12:44 AM RECEIVING TANK OPERATOR) Only the most recent of2 resultswithin the time period is included. Glucose WB/POC 103 70 - 106 mg/dL 08/05/2014 5:26 PM RECEIVING TANK OPERATOR [facility] Blood BLOOD SPECIMEN / Unknown 08/05/2014 12:44 AM RECEIVING TANK OPERATOR 08/05/2014 5:26 PM RECEIVING TANK OPERATOR Juan Luis Waddell DO LAB - POINT OF CARE ORDERABLES Performing Organization Address City/[facility]/ZIP Co de Phone Number [facility] [address] [place] [address] * EKG 12-LEAD (08/04/2014 11:13 PM RECEIVING TANK OPERATOR) Only the most recent of6 resultswithin the time period is included. Ventricular Rate 100 BPM [facility] Atrial Rate 100 BPM [facility] P-R Interval 98 ms [facility] QRS Duration ms 96 ms [facility] Q-T Interval ms 346 ms [facility] QTC Calculation (Bezet) 446 ms [facility] Calculated P [place] 30 degrees [facility] Calculated R [place] 49 degrees [facility] Calculated T [place] 12 degrees [facility] Interpretation EKG Sinus rhythm with short [facility] Possible Left atrial enlargement Borderline ECG Confirmed by BRIT CANDELARIO MD ([id number]) on 08/06/2014 9:56:57 AM [facility] 08/04/2014 11:1 3 PM RECEIVING TANK OPERATOR 08/06/2014 9:56 AM RECEIVING TANK OPERATOR Juan Luis Waddell DO ECG ORDERABLES Performing Organization Address City/[facility] Co de Phone Number [facility] * LIPASE BLOOD (10/09/2013 2:44 PM RECEIVING TANK OPERATOR) Only the most recent of4 resultswithin the time period is included. Lipase 51 8 - 78 Units/L [facility] Serum 10/09/2013 2:44 PM RECEIVING TANK OPERATOR 10/09/2013 2:44 PM RECEIVING TANK OPERATOR Memo Workman MD LAB - CHEMISTRY [place] Performing Organization Address [facility] Co de Phone Number [address] [phone] * AMYLASE BLOOD (10/09/2013 2:44 PM RECEIVING TANK OPERATOR) Amylase 59 25 - 125 Units/L [facility] Serum 10/09/2013 2:44 PM RECEIVING TANK OPERATOR 10/09/2013 2:44 PM RECEIVING TANK OPERATOR Memo Workman MD LAB - CHEMISTRY [place] Performing Organization Address [facility] de Phone Number [address] [phone] * (ABNORMAL) DRUG ABUSE PANEL 10-20+ETHANOL URINE NO CONFIRM (10/09/2013 2:43 PM RECEIVING TANK OPERATOR) Amphetamines NEGATIVE NEGATIVE [facility] Comment:Positive Cutoff: >=1 000 ng/mL Barbiturate NEGATIVE NEGATIVE [facility] Comment:Positive Cutoff: >=2 00 ng/mL Benzodiazepine Screen Urine POSITIVE(A) NEGATIVE [facility] Comment:Positive Cutoff: >=2 00 ng/mL Opiates POSITIVE(A) NEGATIVE [facility] Comment:Positive Cutoff: >=3 00 ng/mL Cocaine Metabolite Urine NEGATIVE NEGATIVE [facility] Comment:Positive Cutoff: >=3 00 ng/mL Phencyclidine Screen Urine NEGATIVE NEGATIVE [facility] Comment:Positive Cutoff: >=2 5 ng/mL Cannabinoids Screen Urine NEGATIVE NEGATIVE [facility] Comment:Positive Cutoff: >=5 0 ng/mL Methadone NEGATIVE NEGATIVE [facility] Comment:Positive Cutoff: >=3 00 ng/mL Note SEE NOTE [facility] Comment: Positive results should be confirmed by another generally accepted non-immunological method such as gas chromatography or mass spectrometry. Toxicology testing by the [facility] is an aid to medical diagnosis and treatment of patients. No documented chain of custody was maintained. Results are intended to be used for clinical purposes only. Note SEE NOTE [facility] Comment: The UTOX Panel does not screen for Propoxyphene, Meprobamate, Carisoprodol, Trazodone, nanp-dgb-xgnggur medications and/or volatiles (Acetone, Isopropanol, Methanol, Ethylene Glycol). Ethanol, Salicylate, Acetaminophen, Tricyclic Antidepressants and several therapeutic drugs may be individually assayed in a serum specimen. Urine specimen (specimen) 10/09/2013 2:43 PM RECEIVING TANK OPERATOR 10/09/2013 2:44 PM RECEIVING TANK OPERATOR Memo Workman MD LAB - URINE CHEMISTR Y ORDERABLES [address] [phone] * INFLUENZA A+B ANTIGEN RAPID (09/11/2013 12:16 AM RECEIVING TANK OPERATOR) Influenza A Antigen Negative Negative 09/11/2013 12:44 AM RECEIVING TANK OPERATOR [facility] Influenza B Antigen Negative Negative 09/11/2013 12:44 AM RECEIVING TANK OPERATOR [facility] Microbiology NASOPHARYNGEAL SWAB / Unknown 09/11/2013 12:16 AM RECEIVING TANK OPERATOR 09/11/2013 12:26 AM RECEIVING TANK OPERATOR Narrative [facility] - 09/11/2013 12:44 AM RECEIVING TANK OPERATOR ? The sensitivity of rapid tests for influenza A and B antigens, according to the published reports , ranges from 30-70% when compared to PCR and viral culture. For H1N1 influenza A, the sensitivity varies from 30-50%. For other influenza A strains, the sensitivity ranges from 50-70%. For influenza B virus, the sensitivity is approximately 30%. A negative result does not exclude influenza infection. ? False-positive (and true-negative) influenza test results are more likely to occur when disease prevalence is low, which is generally at the beginning and end of the influenza season. False-negative (and true-positive) influenza test results are more likely to occur when disease prevalence is high, which is typically at the height of the influenza season. Graeme Ahmadi MD LAB - MICROBIO LOGY ORDERABLES Performing Organization Address City/[facility]/ZIP Co de Phone Number [facility] [address] [place] [address] * (ABNORMAL) DRUG SCREEN TRIAGE PANEL (01/30/2012 7:20 PM CDT) Only the most recent of2 resultswithin the time period is included. Phencyclidine Screen Urine NOT DETECTED 25 ng/dl [facility] Benzodiazepines Screen Urine DETECTED(AA ) 300 ng/ml [facility] Cocaine Screen Urine NOT DETECTED 300 ng/ml [facility] Amphetamines Screen Urine NOT DETECTED 1000 ng/ml [facility] Cannabinoids Screen Urine NOT DETECTED 50 ng/ml [facility] Opiate Screen Urine NOT DETECTED 300 ng/ml [facility] Barbiturates Screen Urine NOT DETECTED 300 ng/ml [facility] URINE / Unknown 01/30/2012 7 :20 PM CDT 01/30/2012 7:31 PM CDT Avelina Patel MD LAB - URINE CHEMI STRY ORDERABLES Performing Organization Address [facility]/ZIP Co de Phone Number [facility] [address] [place] [address] * LAB HISTORICAL RESULTS-ONBASE (10/30/2011) Only the most recent of2 resultswithin the time period is included. 10/30/2011 Historical Provider LAB - CHEMISTRY O RDERABLES [facility] * (ABNORMAL) URINALYSIS - POINT OF CARE (AMB) [facility] (10/30/2011) Glucose UA neg [facility] Bilirubin UA POCT 1+(A) [facility] Ketones UA POCT + 5(A) [facility] Specific [place] UA 1.025 [facility] Blood Urine POCT neg [facility] pH UA 5.5 [facility] Protein UA + 15(A) [facility] Urobilinogen UA 1+(A) [facility] Nitrite UA +(A) [facility] WBC UA 2+(A) [facility] Urine specimen (specimen) 10/30/2011 Historical Provider LAB - POINT OF CA RE ORDERABLES [facility] * B-TYPE NATRIURETIC PEPTIDE - POINT OF CARE (01/03/2010 3:41 PM CDT) BNP POCT < 5.0 <=100 pg/ml [facility] Performed by [facility] Performed In ER [facility] BLOOD SPECIMEN / Unknown 01/03/2010 3:41 PM CDT 01/03/2010 3:42 PM CDT Er LAB - POINT OF CARE ORDERABLES Performing Organization Address [facility] Co de Phone Number [facility] [address] [place] [address] * MYOGLOBIN BLOOD - POINT OF CARE (01/03/2010 3:41 PM CDT) Myoglobin POCT 61.5 <=170 ng/ml [facility] Performed by [facility] Performed In ER [facility] BLOOD SPECIMEN / Unknown 01/03/2010 3:41 PM CDT 01/03/2010 3:42 PM CDT Er LAB - POINT OF CARE ORDERABLES Performing Organization Address City/[facility] Co de Phone Number [facility] [address] [place] [address] * TROPONIN - POINT OF CARE (01/03/2010 3:41 PM CDT) Troponin I POCT < 0.05 SEE BELOW ng/ml [facility] Comment: Normal ? <0.05 Indeterminate 0.05-0.39 Abnormal >0.4 Performed by [facility] Performed In ER [facility] BLOOD SPECIMEN / Unknown 01/03/2010 3:41 PM CDT 01/03/2010 3:42 PM CDT Er LAB - POINT OF CARE ORDERABLES Performing Organization Address [facility] Co de Phone Number [facility] [address] [place] [address] * CKMB - POINT OF CARE (01/03/2010 3:41 PM CDT) [facility] CK-MB POCT < 1.0 <=8.0 ng/ml [facility] Performed by [facility] Performed In ER [facility] BLOOD SPECIMEN / Unknown 01/03/2010 3:41 PM CDT 01/03/2010 3:42 PM CDT Er LAB - POINT OF CARE ORDERABLES Performing Organization Address [facility] de Phone Number [facility] [address] [place] [address] * CARDIAC EKG ORDER (12/07/2009 10:14 AM CDT) Only the most recent of6 resultswithin the time period is included. Narrative 12/07/2009 10:14 AM CDT Ordered by an unspecified provider. Transcriptions Document, Scanned - 12/05/2009 12:00 AM CDT Scanned Document CARDIAC SERVICES ORD ERABLES * TROPONIN I (12/05/2009 5:40 PM CDT) Pathologist [facility] Troponin I <0.10 SEE BELOW ng/ml [facility] Comment: Normal ? <0.10 [place] ??0.10-0.99 Positive ?? >=1.00 SERUM OR PLASMA SPECIMEN / Unknown 12/05/2009 5:40 PM CDT 12/05/2009 5:45 PM CDT [facility] CHEMISTRY ORDE JULIANNA Performing Organization Address [facility] Co de Phone Number [facility] [address] [place] [address] * (ABNORMAL) DRUG SCREEN URINE ABUSE INHOUSE (11/30/2009 5:43 PM CDT) Amphetamines Screen Urine Negative Negative [facility] Barbiturates Screen Urine Negative Negative [facility] Benzodiazepines Screen Urine Positive(A) Negative [facility] Cocaine Screen Urine Negative Negative [facility] Cannabinoids Screen Urine Negative Negative [facility] Opiate Screen Urine Negative Negative [facility] Phencyclidine Screen Urine Negative Negative [facility] Methadone Screen Urine Negative Negative [facility] Legal Disclaimer Urine [facility] Comment: This drug screen is designed for MEDICAL purposes only. It is not to be used for legal purposes including but not limited to workman's comp, police investigations, occupational issues, child custody, etc. Any positive result is only presumptive and must be confirmed with a separate confirmatory test. URINE / Unknown 11/30/2009 5 :43 PM CDT 11/30/2009 5:43 PM CDT Yuridia COLLIER [facility] - URINE CHEMISTR Y ORDERABLES [facility] [address] [place] [address] * (ABNORMAL) MYOGLOBIN BLOOD (01/01/2008 3:10 PM CDT) Pathologist [facility] Myoglobin 50.3(H) <50.0 ng/mL [facility] SERUM OR PLASMA SPECIMEN / Unknown 01/01/2008 3:10 PM CDT 01/01/2008 3:13 PM CDT Taran Bragan DO LAB - CHEMISTRY [place] [facility] [address] [address] * PT PTT PANEL (01/01/2008 1:35 PM CDT) PT 10.0 9.3 - 11.4 seconds [facility] INR 1.0 SEE BELOW [facility] Comment: 0.9-1.2 Normal 2.0-3.0 Therapeutic 2.5-3.5 High Risk PTT 29.6 24.0 - 32.0 seconds [facility] BLOOD SPECIMEN / Unknown 01/01/2008 1:35 PM CDT 01/01/2008 2:07 PM CDT Taran Zhang DO LAB - COAGULATION OR DERABLES Performing Organization Address [facility] Co de Phone Number [address] [address] * (ABNORMAL) R/O [place] PROFILE (01/01/2008 1:35 PM CDT) Myoglobin 57.6(H) <50.0 ng/mL [facility] Troponin I <0.10 SEE BELOW ng/mL [facility] Comment: <0.10 Normal 0.10-0.99 Indeterminate >= 1.0 Abnormal Comment MN Baseline MN Protocol Abnormal. TNI Protocol started. [facility] SERUM OR PLASMA SPECIMEN / Unknown 01/01/2008 1:35 PM CDT 01/01/2008 2:06 PM CDT Taran Zhang DO LAB - CHEMISTRY ORDE RABLES Performing Organization Address [facility] Co de Phone Number [address] [address] * CHEST XRAY - PORTABLE (01/01/2008 1:23 PM CDT) Anatomical Region Laterality Modality Chest Radiographic Katarzyna ging 01/02/2008 7:17 AM CDT Impressions 01/02/2008 7:19 AM CDT Impression: Normal chest, no acute cardiopulmonary abnormality. Narrative 01/02/2008 7:19 AM CDT HISTORY: Chest pain Chest one view portable 01/01/08 FINDINGS: The heart size and mediastinum are normal. The lungs are clear. There is no pleural effusion or pneumothorax. Bones are unremarkable. Procedure Note Addy oBnds MD - 01/02/2008 HISTORY: Chest pain Chest one view portable 01/01/08 FINDINGS: The heart size and mediastinum are normal. The lungs are clear. There is no pleural effusion or pneumothorax. Bones are unremarkable. IMPRESSION Impression: Normal chest, no acute cardiopulmonary abnormality. Taran Zhang DO DIAGNOSTIC IMAGING O RDERABLES
--- OUTSIDE RECORDS SUMMARY | 2024-09-10 03:43 | XMS_ITS | Referral Summary ---
Author Organization [facility] [employer] Address [address] [place] [address] Care Team Providers Care Nuclear Medicine Physician Name Role Phone Unavailable Primary Care Provider Unavailabl e Source Comments [facility],non-owned Affiliates and Associated Physician Practices is amultiple site organization consisting of ambulatory clinics and hospital sitesin [place], [place], [place] and [place]. This disclosure is being madepursuant to the Care Everywhere program and may not contain all information available regarding this patient. Last updated 18.[facility] Allergies Active Allergy Reactions Criticality Noted Date [...] fluticasone propionate (FLONASE) 50 MCG/ACT nasal spray [place] 2 sprays into each nostril once daily 15.8 g 11 08/01/2019 Active hyoscyamine 0.125 MG tabletIndications:Acu te diverticulitis Take 1 tablet by mouth every 4 hours as needed for Spasms 30 tablet 09/30/2019 Active promethazine (PHENERGAN) 25 MG tabletIndications:Acu te diverticulitis Take 1 tablet by mouth every 6 hours as needed for Nausea/Vomiting 20 tablet 10/20/2019 Active ipratropium (ATROVENT) 0.06 % nasal spray [place] 2 sprays into each nostril 3 times [...] (10/31/2019): Scheduled appointment with psychiatric, April 01, [facility] in [place]. Microcytic anemia 07/02/2015 SOB (shortness of breath) [...] Name Administration Dates Next Due TD 09/13/2011 Social History Tobacco Use Types Packs/Day Years [...] 11/30/2022 5:34 AM CDT Plan of Treatment Not on file Procedures Procedure Name Priority Date/Time Associated Diagnosis Comments MICROALB/CREAT RATIO URINE RANDOM PANEL Routine 10/20/2019 2:41 PM LIQUID YEAST SUPERVISOR Type 2 diabetes mellitus without complication, without long-term current use of insulin (HCC) COMPREHENSIVE METABOLIC PANEL Routine 10/20/2019 2:41 PM LIQUID YEAST SUPERVISOR Type 2 diabetes mellitus without complication, without long-term current use of insulin (HCC) Obesity with serious comorbidity, unspecified classification, unspecified obesity type HEPATITIS C AB W RFLX VERIFICATION Routine 10/20/2019 2:41 PM LIQUID YEAST SUPERVISOR Type 2 diabetes mellitus without complication, [...] AB W RFLX VERIFICATION (10/20/2019 2:41 PM LIQUID YEAST SUPERVISOR) Hepatitis C Antibody <0.1 0.0 - 0.9 s/co ratio 10/21/2019 8:18 AM LIQUID YEAST SUPERVISOR [facility] ([facility]) Blood BLOOD SPECIMEN / Unknown Lab Venipuncture / Unknown 10/20/2019 2:41 PM LIQUID YEAST SUPERVISOR 10/20/2019 3:01 PM LIQUID YEAST SUPERVISOR Narrative [facility] ([facility]) - 10/21/2019 8:18 AM LIQUID YEAST SUPERVISOR Performed at: ??01 - [facility] [address], [place], [place] [id number] Manufacturing Engineer Automotive: Carlos Woods PhD, Phone: ??[phone] Radha M Vivienne [facility] - CHEMI STRY ORDERABLES [facility] ([facility]) [address] [place] [address] * (ABNORMAL) MICROALB/CREAT RATIO URINE RANDOM PANEL (10/20/2019 2:41 PM LIQUID YEAST SUPERVISOR) Albumin Random Urine 65.0 Not Established mcg/mL 10/20/2019 4:57 PM [facility] Creatinine Urine 143 Not Established mg/dL 10/20/2019 4:57 PM [facility] Comment: Result obtained by dilution. Urine Albumin/Creati nine Ratio 45(H) <30 mg/g 10/20/2019 4:57 PM [facility] Urine URINE SPECIMEN OBTAINED BY CLEAN CATCH PROCEDURE / Unknown Collection / Unknown 10/20/2019 2:41 PM LIQUID YEAST SUPERVISOR 10/20/2019 3:01 PM LIQUID YEAST SUPERVISOR Radha Conte Vivienne [facility] LAB - URINE CHEMISTRY ORDERABLES [address] [phone] * (ABNORMAL) COMPREHENSIVE METABOLIC PANEL (10/20/2019 2:41 PM LIQUID YEAST SUPERVISOR) BUN 11 7 - 26 mg/dL 10/20/2019 3:[address] [facility] Creatinine 0.9 0.6 - 1.2 mg/dL 10/20/2019 3:33 PM [facility] Sodium 142 136 - 145 mmol/L 10/20/2019 3:33 PM [facility] Potassium 3.3(L) 3.5 - 4.5 mmol/L 10/20/2019 3:33 PM [facility] Chloride 104 98 - 107 mmol/L 10/20/2019 3:[address] [facility] CO2 25 22 - 29 mmol/L 10/20/2019 3:[address] [facility] Glucose 96 70 - 115 mg/dL 10/20/2019 3:[address] [facility] Calcium 9.5 8.4 - 10.2 mg/dL 10/20/2019 3:33 PM [facility] Protein Total 8.2 6.0 - 8.3 g/dL 10/20/2019 3:33 PM [facility] Albumin 4.2 3.4 - 5.0 g/dL 10/20/2019 3:33 PM [facility] Bilirubin Total 1.7(H) 0.2 - 1.2 mg/dL 10/20/2019 3:33 PM [facility] Alkaline Phosphatase 75 40 - 150 Units/L 10/20/2019 3:33 PM [facility] ALT 60(H) 0 - 55 Units/L 10/20/2019 3:33 PM [facility] AST 63(H) 5 - 34 Units/L 10/20/2019 3:33 PM [facility] Anion Gap 16 8 - 18 10/20/2019 3:33 PM [facility] BUN/Creatinine Ratio 12 7 - 23 10/20/2019 3:33 PM [facility] Osmolality Calculated 293 270 - 300 mOsm/kg 10/20/2019 3:33 PM [facility] Albumin/Globulin Ratio 1.1 1.1 - 2.3 10/20/2019 3:33 PM [facility] eGFR >60 >60 mL/min/1.7 3 m2 10/20/2019 3:33 PM [facility] Blood BLOOD SPECIMEN / Unknown Lab Venipuncture / Unknown 10/20/2019 2:41 PM LIQUID YEAST SUPERVISOR 10/20/2019 3:01 PM LIQUID YEAST SUPERVISOR Radha Palafox APRN-PILOT SAFETY INSPECTOR LAB - CHEMI STRY ORDERABLES [facility] [address] [place] [address] * HEMOGLOBIN A1C - POINT OF CARE (AMB) [facility] (08/01/2019) Hemoglobin A1c POCT 7.5 BLOOD SPECIMEN / Unknown 08/01/2019 Radha Palafox APRN-PILOT SAFETY INSPECTOR LAB - POINT OF CARE ORDERABLES from Last 3 Months or Most Recently Relevant to Health Maintenance
--- OUTSIDE RECORDS SUMMARY | 2024-09-10 03:43 | XMS_ITS | Encounter Summary ---
Author Organization [facility] Address [address] [place] [address] Care Team Providers Care Lightning Protection Installer Name Role Phone Unavailable Primary Care Provider Unavailabl e Encounter Details Date Type Department Care Team (Late st Contact Info) Description 03/28/2020 11:59 PM CDT Anesthesia Event [facility] [address] [place] [phone] Ryland Taylor MD [address] [place], [place] [id number] Anesthesia Record Procedure Summary Procedure Name Responsible Anesthesiologist Anesthesia Start Time Anesthesia Stop Time COLONOSCOPY DIAGNOSTIC Events No events on file. Meds * Agents No agents on file. * Blood No blood administrations on file. Lines, Drains, and Airways No LDAs on file. documented in this encounter Social History Tobacco Use Types Packs/Day Years [...] PM CDT documented as of this encounter Progress Notes * Ryland Taylor MD - 03/27/2020 10:36 AM CDT ANESTHESIA PREOPERATIVE EVALUATION NOTE Procedure: COLONOSCOPY DIAGNOSTIC (N/A ) Vitals: No data found. ANESTHESIA PRE-EVALUATION NOTE History of Present Illness: 50 yo male with Hx of colonic mass presents for colonscopy. PMHx ??? Abdominal pain, acute 02/02/2013 ??? Allergic rhinitis 03/12/2017 ?? Last Assessment & Plan: Patient demonstrates symptoms consistent with allergic rhinitis. Patient is instructed to continue with fluticasone nasal spray 2 sprays in each nostril twice daily. Wewill add Astelin nasal spray 2 sprays in each nostril b.i.d.. Patient was also instructed to perform saline nasal sprays periodically throughout the day to help promote mucociliary clearance. Patientwa ??? Anxiety state 01/08/2015 ??? Arthritis 02/13/2019 ??? Asthma 02/13/2019 ??? Benign neoplasm of colon 02/13/2019 ??? Benzodiazepine dependence 03/12/2017 ??? Blurry vision, bilateral 08/28/2014 ??? Cervical stenosis of spinal canal 08/28/2014 ??? Chest pain 01/01/2008 ??? Colitis 02/02/2013 ??? Costochondral chest pain 08/28/2014 ??? Diverticulitis ? Diverticulitis of colon 09/11/2013 ? Diverticulosis of the colon ? Dizziness 12/05/2009 ??? Essential hypertension 03/12/2017 ??? Gastroesophageal reflux disease 06/13/2009 ??? GERD (gastroesophageal reflux disease) ? Headache 07/05/2012 ? History of cardiac cath 2018 ?? normal ??? Microcytic anemia 07/02/2015 ??? Nausea 08/16/2017 ??? Neck pain 01/08/2015 ??? Obesity (BMI 30-39.9) 03/12/2017 ??? Other acute recurrent sinusitis 05/10/2018 ?? Last Assessment & Plan: The patient is currently getting over an acute sinus infection. She is currently on Augmentin. Patient continues to demonstrate symptoms consistent with paranasal sinuspressure and headaches. I will add guaifenesin D as a mucolytic decongestant agent in conjunction with a Medrol Dosepak. Patient is to take these medications as directed. Should patient failed to respo ??? Panic attack 01/03/2010 ??? Panic attacks ? Paresthesias with subjective weakness 08/28/2014 ??? PTSD (post-traumatic stress disorder) 08/28/2014 ??? Recurrent major depressive disorder, in partial remission 03/12/2017 ?? Scheduled appointment with psychiatric, April 01, [facility] in [place]. ??? Sedative, hypnotic or anxiolytic abuse, continuous 06/18/2009 ??? SOB (shortness of breath) 07/02/2015 ??? Tooth infection 08/16/2017 ??? Type 2 diabetes mellitus with hyperglycemia, without long-term current use of insulin 09/01/2019 ?? Diagnostic Tests: ECG(s) reviewed: Yes Lab(s) reviewed: Yes. Anes Plan BMI, Height, Weight Tobacco History Estimated body mass index is 30.17 kg/m?? as calculated from the following: Height as of 11/18/19: 1.88 m (6' 2 ). Weight as of 11/18/19: 106.6 kg (235 lb). Social History Tobacco Use Smoking Status Former Smoker Smokeless Tobacco Never Used Alcohol History Drug History Social History Substance and Sexual Activity Alcohol Use No Social History Substance and Sexual Activity Drug Use No Outpatient Medications: Inpatient Medications: No outpatient medications have been marked as taking for the 03/28/20 encounter (Hospital Encounter). No current facility-administered medications for this encounter. Allergies: Allergies Allergen Reactions ??? Cephalexin Shortness of Breath ??? Levofloxacin Other ??? Azithromycin Other ??? Contrast-Iodinated Agents For Ct/Other ??? Doxycycline Other ??? Lidocaine Rash and Swelling ??? Metformin Other Chest pain ??? Paxil [Paroxetine] ??? Percocet [Oxycodone-Acetaminophen] Palpitations and Other Pt reports that he breaks out into a sweat ??? Sulfa Drugs ??? Losartan Angioedema Swollen lips ??? Maalox Shortness of Breath ??? Pepcid Shortness of Breath IV formula ??? Sulfamethoxazole W-Trimethoprim Urticaria ??? Sulfur Urticaria and Shortness of Breath ??? Glimepiride Urticaria ??? Bactrim Ds Rash ??? Barium Other ??? Levaquin Hallucinations ??? Levetiracetam Other hallucinaton Relevant Problems No relevant active problems Problem List: Patient Active Problem List Diagnosis Date Noted ??? Type 2 diabetes mellitus with hyperglycemia, without long-term current use of insulin 09/01/2019 Priority: Not Prioritized ??? Arthritis 02/13/2019 Priority: Not Prioritized ??? Asthma 02/13/2019 Priority: Not Prioritized ??? Benign neoplasm of colon 02/13/2019 Priority: Not Prioritized ??? Diverticulitis 02/13/2019 Priority: Not Prioritized ??? Other acute recurrent sinusitis 05/10/2018 Priority: Not Prioritized Last Assessment & Plan: The patient is currently getting over an acute sinus infection. She is currently on Augmentin. Patient continues to demonstrate symptoms consistent with paranasal sinus pressure and headaches. I willadd guaifenesin D as a mucolytic decongestant agent in conjunction with a Medrol Dosepak. Patient is to take these medications as directed. Should patient failed to respond to medical management CT imaging will be obtained to determine the extent of the disease process. ??? Nausea 08/16/2017 Priority: Not Prioritized ??? Allergic rhinitis 03/12/2017 Priority: Not Prioritized Last Assessment & Plan: Patient demonstrates symptoms consistent with allergic rhinitis. Patient is instructed to continue with fluticasone nasal spray 2 sprays in each nostril twice daily. We will add Astelin nasal spray 2sprays in each nostril b.i.d.. Patient was also instructed to perform saline nasal sprays periodically throughout the day to help promote mucociliary clearance. Patient was made aware of the importance of maintaining compliance with her treatment regimen in order to determine the effectiveness. ??? Benzodiazepine dependence 03/12/2017 Priority: Not Prioritized ??? Essential hypertension 03/12/2017 Priority: Not Prioritized ??? Obesity (BMI 30-39.9) 03/12/2017 Priority: Not Prioritized ??? Recurrent major depressive disorder, in partial remission 03/12/2017 Priority: Not Prioritized Scheduled appointment with psychiatric, April 01, [facility] in [place]. ??? Microcytic anemia 07/02/2015 Priority: Not Prioritized ??? SOB (shortness of breath) 07/02/2015 Priority: Not Prioritized ??? Anxiety state 01/08/2015 Priority: Not Prioritized ??? Neck pain 01/08/2015 Priority: Not Prioritized ??? Cervical stenosis of spinal canal 08/28/2014 Priority: Not Prioritized ??? Costochondral chest pain 08/28/2014 Priority: Not Prioritized ??? Paresthesias with subjective weakness 08/28/2014 Priority: Not Prioritized ??? PTSD (post-traumatic stress disorder) 08/28/2014 Priority: Not Prioritized ??? Blurry vision, bilateral 08/28/2014 Priority: Not Prioritized ??? Sedative, hypnotic or anxiolytic abuse, continuous 06/18/2009 Priority: Not Prioritized ??? Gastroesophageal reflux disease 06/13/2009 Priority: Not Prioritized ??? Diverticulitis of colon 09/11/2013 ??? Colitis 02/02/2013 ??? Panic attack 01/03/2010 ??? Chest pain 01/01/2008 Medical History: Past Medical History: Diagnosis Date ??? Abdominal pain, acute 02/02/2013 ??? Allergic rhinitis 03/12/2017 Last Assessment & Plan: Patient demonstrates symptoms consistent with allergic rhinitis. Patient is instructed to continue with fluticasone nasal spray 2 sprays in each nostril twice daily. We will add Astelin nasal spray 2 sprays in each nostril b.i.d.. Patient was also instructed to perform saline nasal sprays periodically throughout the day to help promote mucociliary clearance. Patient wa ??? Anxiety state 01/08/2015 ??? Arthritis 02/13/2019 ??? Asthma 02/13/2019 ??? Benign neoplasm of colon 02/13/2019 ??? Benzodiazepine dependence 03/12/2017 ??? Blurry vision, bilateral 08/28/2014 ??? Cervical stenosis of spinal canal 08/28/2014 ??? Chest pain 01/01/2008 ??? Colitis 02/02/2013 ??? Costochondral chest pain 08/28/2014 ??? Diverticulitis ??? Diverticulitis of colon 09/11/2013 ??? Diverticulosis of the colon ??? Dizziness 12/05/2009 ??? Essential hypertension 03/12/2017 ??? Gastroesophageal reflux disease 06/13/2009 ??? GERD (gastroesophageal reflux disease) ??? Headache 07/05/2012 ??? History of cardiac cath 2019 normal ??? Microcytic anemia 07/02/2015 ??? Nausea 08/16/2017 ??? Neck pain 01/08/2015 ??? Obesity (BMI 30-39.9) 03/12/2017 ??? Other acute recurrent sinusitis 05/10/2018 Last Assessment & Plan: The patient is currently getting over an acute sinus infection. She is currently on Augmentin. Patient continues to demonstrate symptoms consistent with paranasal sinus pressure and headaches. I will add guaifenesin D as a mucolytic decongestant agent in conjunction witha Medrol Dosepak. Patient is to take these medications as directed. Should patient failed to respo ??? Panic attack 01/03/2010 ??? Panic attacks ??? Paresthesias with subjective weakness 08/28/2014 ??? PTSD (post-traumatic stress disorder) 08/28/2014 ??? Recurrent major depressive disorder, in partial remission 03/12/2017 Scheduled appointment with psychiatric, April 01, [facility] in [place]. ??? Sedative, hypnotic or anxiolytic abuse, continuous 06/18/2009 ??? SOB (shortness of breath) 07/02/2015 ??? Tooth infection 08/16/2017 ??? Type 2 diabetes mellitus with hyperglycemia, without long-term current use of insulin 09/01/2019 Surgical History: Past Surgical History: Procedure Laterality Date ??? Cholecystectomy Lab Results: Invalid input(s): OSMOLAITY Invalid input(s): PREGTESTUR Invalid input(s): ANIONAPART, PREALBIUMIN, [id number] documented in this encounter Plan of Treatment Not on file documented as of this encounter Visit Diagnoses Not on filedocumented in this encounter
--- OUTSIDE RECORDS SUMMARY | 2024-09-10 03:43 | XMS_ITS | Encounter Summary ---
Author Organization [facility] Address [address] [place] [address] Care Team Providers Care Skip Miner Name Role Phone Unavailable Primary Care Provider Unavailabl e Reason for Visit * Reason Onset Date Comments MEDICATION REFILL 12/26/2019 Encounter Details Date Type Department Care Team (Late st Contact Info) Description 12/26/2019 Refill [facility] [address] [place] [address] Radha Palafox, UTILITY CLERK-GYPSUM CALCINER [address] [facility] [place] [phone] MEDICATION REFILL Social History Tobacco Use Types Packs/Day Years [...] encounter Miscellaneous Notes * Telephone Encounter - Leticia Olivas - 12/26/2019 11:30 AM CDT Refill Request Carlos Mcgee CRISTELA: 10/20/19 NOV due: 12/01/19 NOV scheduled: none [facility]RF: 12/12/19 Qty Disp: 30 # of refills: 5 Allergies: Allergies Allergen Reactions ??? Cephalexin Shortness [...] ??? Levaquin Hallucinations ??? Levetiracetam Other hallucinaton Pended Medication Order: Requested Prescriptions Pending Prescriptions Disp Refills ??? atenolol (TENORMIN) 100 MG tablet 30 tablet 5 Sig: Take 1 tablet by mouth once daily documented in this encounter Plan of Treatment Not on file documented as of this encounter Visit Diagnoses Not on filedocumented in this encounter
--- OUTSIDE RECORDS SUMMARY | 2024-09-10 03:43 | XMS_ITS | Encounter Summary ---
Author Organization [facility] Address [address] [place] [address] Care Team Providers Care Car Wash Manager Name Role Phone Unavailable Primary Care Provider Unavailabl e Encounter Details Date Type Department Care Team (Latest Contact Info) Description 02/07/2020 Travel Social History Tobacco Use Types Packs/Day [...] or suspected to have Coronavirus / COVID-19? Unable to assess 02/07/2020 9:41 AM CDT documented as of this encounter Plan of Treatment Not on file documented as of this encounter Visit Diagnoses Not on filedocumented in this encounter
--- OUTSIDE RECORDS SUMMARY | 2024-09-10 03:43 | XMS_ITS | Encounter Summary ---
Author Organization [facility] Address [address] [place] [address] Care Team Providers Care Weatherstrip Machine Operator Name Role Phone Unavailable Primary Care Provider Unavailabl e Encounter Details Date Type Department Care Team (Late st Contact Info) Description 12/06/2020 Orders Only [facility] - COVID Vaccine [address] [place] [phone] Adin Galdamez MD [address] [place] [address] Need for vaccination Social History Tobacco Use Types Packs/Day Years Used Date Smoking Tobacco: Former Smokeless Tobacco: Never Alcohol Use Standard Drinks/Week Comments No 0 (1 standard drink = 0.6 oz pur e alcohol) Sex and Gender Information Value Date Recorded Sex Assigned at Not on file Gender Identity Not on file Sexual Orientation Not on file documented as of this encounter Plan of Treatment Not on file documented as of this encounter Visit Diagnoses Diagnosis Need for vaccination Need for prophylactic vaccination and inoculation against unspecified single disease documented in this encounter
--- OUTSIDE RECORDS SUMMARY | 2024-09-10 03:43 | XMS_ITS | Encounter Summary ---
Author Organization [facility] Address [address] [place] [address] Care Team Providers Care Integration Lead Name Role Phone Unavailable Primary Care Provider Unavailabl e Encounter Details Date Type Department Care Team (Late st Contact Info) Description 02/06/2020 Orders Only [facility] [address] [place] [id number] Angi Hamilton, RN Social History Tobacco Use Types Packs/Day Years Used Date Smoking Tobacco: Former Smokeless Tobacco: Never Alcohol Use Standard Drinks/Week Comments No 0 (1 standard drink = 0.6 oz pur e alcohol) Sex and Gender Information Value Date Recorded Sex Assigned at Not on file Gender Identity Not on file Sexual Orientation Not on file documented as of this encounter Progress Notes * Angi Hamilton, RN - 02/06/2020 11:35 AM CDT Patient calls about scheduling his colonoscopy. Explained that at our previous conversation, he requested that I cancel this procedure because he wasn't fond of this hospital and he was going to finda new doctor. Pt states he meant he wasn't happy with this PCP and states he is going to see his new PCP later today. Wishes to be added back on for a colonoscopy. Offered an appt on 02/08/2020. States he is unable to do this date due to his father's birthday and his birthday is on 2018. States he would like it done by Dr. Aragon although is not an established patient with her and does not want done at [place] because his ex works there. Offered to rescheduled for 03/28/2020 at 10am and will put on a list to call incase of cancellations. Prep E-scribed. Mailed out instructions. Pt asks what he is to do if he has diverticulitis in the meantime. Instructed to contact his PCP or visit a local ER. Pt states he usually just gets a script for Flagyl and Cipro. Explained that patient is not an established patient with GI at [facility] and we would not be able to prescribe medications like this. Pt then proceeds to spend 7 minutes on the phone talking poorly about the ER at [facility] and the charge nurse there. He went on talking about other patient's he saw there and their problems. Explained to patient that I am happy to schedule patient for his procedure by I am not the contact center representative to speak to about prior experiences in the ER. Pt given the number to GI clinic at [phone] if he would like to call to establish care. Conversation ended. Your colonoscopy is scheduled on 03/28/2020 at 1000am. Arrive at 0900a -One week before the colonoscopy: start eating a low fiber diet that is no vegetables such as beans, corn or peas; no fruits with skin. -Stop taking iron one week prior to colonoscopy if on any. -Stop any blood thinners such as Plavix, Clopidogrel, Warfarin, Coumadin, Brilinta or Effient 5 days before your procedure. Stop Eliquis, Xarelto, Cilostazol, Pletal 48 hours prior to your procedure.Stop Pradaxa 3 days before your procedure. (Contact your primary doctor to make sure this is safe for you) - The ENTIRE day before the colonoscopy drink clear liquids, anything you can see through such as apple juice, grape juice, tea, coffee, water, soda, juice, chicken broth, popsicles, jello, Gatorade.NO FOOD THE ENTIRE DAY BEFORE COLONOSCOPY. Avoid RED. If you can chew it, you cannot have it. -drink half the prep (Golytely 2 liters) at 5 pm the night before your procedure. Recommend drinking an 8oz cup every 15 minutes without making yourself sick. - Finish the other half of the prep in the belt tender of your procedure at 4am. -You are not to have anything to eat or drink after midnight the day of your procedure except for the rest of the prep solution and a sip of water with your morning medications. Do not take Lisinopril in the morning of your procedure if you are on it. Do not take any oral diabetes medication the morning of your procedure if you are on it. And do not take any fast acting insulin the morning of your procedure if you are on it. -You MUST have a route sales delivery driver to drive you home. (You can NOT take a bus, cab, LYFT or UBER) -You will be at our facility from start to finish (registration, pre op, procedure, recovery) for approximately 4 hours total. -This is at the [facility] ([facility]. [address] [place] [address]. You'll come into the main entrance. The person at the front office agent can help direct you to the 2nd floor to register. Endoscopy department is then on the 10th floor. -There is a parking garage across the street. You can park there. A ticket prints out when you go through the garage. Bring that in with you so we can stamp it for free parking. Otherwise, we do havea Club Attendant service at the main entrance that charges a $4 fee. If you have a handicap sticker, Club Attendant is free. -Please bring a current list of your medications -Your prep has been sent in to your pharmacy on file. [id number] - [address] [facility] [id number] [address] [facility] [address] 159?[phone] on 02/06/2020. Pick this medication up and hang on to it. It will be good until this date. -Any questions call [phone] documented in this encounter Plan of Treatment Not on file documented as of this encounter Visit Diagnoses Not on filedocumented in this encounter
--- OUTSIDE RECORDS SUMMARY | 2024-09-10 03:43 | XMS_ITS | Encounter Summary ---
Author Organization [facility] Address [address] [facility] [place] [address] Care Team Providers Care Truck Trailer Mechanic Name Role Phone Unavailable Primary Care Provider Unavailabl e Reason for Visit * Reason Onset Date Comments Pre-op Instructions 03/22/2020 Encounter Details Date Type Department Care Team (Late st Contact Info) Description 03/22/2020 Patient Outreach [facility] ENDOSCOPY [address] [place] [phone] Angi Hamilton, RN Pre-op Instructions Social History [...] Telephone Encounter - Angi Hamilton RN - 03/22/2020 2:58 PM CDT Unable to reach patient to remind him of upcoming colonoscopy on 03/28/2020 at 10am documented in this encounter Plan of Treatment Not on file documented as of this encounter Visit Diagnoses Not on filedocumented in this encounter
--- OUTSIDE RECORDS SUMMARY | 2024-09-10 03:43 | XMS_ITS | Encounter Summary ---
Author Organization [facility] Address [address] [facility] [address] Care Team Providers Care Ip/Mosaic Technician Name Role Phone Unavailable Primary Care Provider Unavailabl e Reason for Visit * Reason Comments Anxiety Pt c/o anxiety that yesterday after running out of his anti-anxiety and anti-depressant medications. Pt has an appointment with a new psychiatrist on 12/08. Pt was seen at another hospital this past week and tonight for the same issue. Pt denies any other complaints. Pt alert and oriented x 4, ambulatory with steady gait. Encounter Details Date Type Department Care Team (Late st Contact Info) Description 11/30/2022 5:03 AM CDT - 11/30/2022 8:18 AM CDT Emergency ER at [facility] [address] [place] [id number] Stanton Wolf MD [address] [place] [address] Anxiety; Encounter for medication refill Discharge Disposition: Home or Self Care Social History Tobacco Use Types Packs/Day Years Used Date Smoking Tobacco: Former Smokeless Tobacco: Never Alcohol Use Standard Drinks/Week Comments No 0 (1 standard drink = 0.6 oz pur e alcohol) Sex and Gender Information Value Date Recorded Sex Assigned at Not on file Gender Identity Not on file Sexual Orientation Not on file documented as of this encounter Last Filed Vital Signs Vital Sign Reading [...] Mass Index 32.23 11/30/2022 5:34 AM CDT documented in this encounter Discharge Instructions * Discharge Instructions* Stanton Wolf MD - 11/30/2022 7:25 AM CDT Please follow-up with your new psychiatrist in 1 week as scheduled. documented in this encounter Medications at Time of Discharge Medication Sig Dispensed Refills Start Date End Date albuterol HFA (PROVENTIL;VENTOLIN;PROAI R) 108 (90 Base) MCG/ACT inhaler INL 1 TO 2 PFS PO Q 4 H PRF SOB 1 Inhaler 11 08/01/2019 alfuzosin CR 24hr (UROXATRAL) 10 MG tablet Take 1 tablet by mouth once daily 30 tablet 3 11/09/2019 ALPRAZolam (Xanax) 1 MG tabletIndications:Anxiety Take 1 (one) tablet by mouth 2 times daily as needed for Anxiety Reasons: Feeling Anxious 14 tablet 11/30/2022 atenolol (TENORMIN) 100 MG tabletIndications:Essenti al hypertension Take 1 tablet by mouth once daily This will be last times [facility] he has been dismissed from practice. 30 tablet 3 09/02/2020 ciprofloxacin (CIPRO) 500 MG tabletIndications:Acute diverticulitis Take 1 tablet by mouth 2 times daily 20 tablet 09/02/2020 cyclobenzaprine (FLEXERIL) 10 MG tablet Take 10 mg by mouth 3 times daily as needed 10/06/2019 diphenhydrAMINE (BENADRYL) 50 MG capsuleIndications:Allerg ic to IV contrast TAKE [address] 1 capsule 11/23/2019 fluticasone propionate (FLONASE) 50 MCG/ACT nasal spray Lynn 2 sprays into each nostril once daily 15.8 g 11 08/01/2019 hydrALAZINE (APRESOLINE) 25 MG tablet Take 1 tablet by mouth 3 times daily 90 tablet 12/03/2019 hydroCHLOROthiazide (MICROZIDE) 12.5 MG capsule Take 1 capsule by mouth once daily 30 capsule 12/04/2019 hyoscyamine 0.125 MG tabletIndications:Acute diverticulitis Take 1 tablet by mouth every 6 hours as needed for Spasms 50 tablet 1 09/02/2020 hyoscyamine 0.125 MG tabletIndications:Acute diverticulitis Take 1 tablet by mouth every 4 hours as needed for Spasms 30 tablet 09/30/2019 ipratropium (ATROVENT) 0.06 % nasal spray Lynn 2 sprays into each nostril 3 times daily 15 mL 10/28/2019 omeprazole (PRILOSEC) 20 MG capsule Take 1 capsule by mouth once daily 30 capsule 11/17/2019 polyethylene glycol (GOLYTELY;NULYTELY) 240 g solution Drink 1/2 of prep at 5pm the night before test. Finish the prep at 4am the day of test. 4000 mL 03/27/2020 predniSONE (DELTASONE) 50 MG tabletIndications:Allergi c to IV contrast TAKE 1 TAB @ 13 HRS, 7 HRS, AND [address] 3 tablet 11/23/2019 promethazine (PHENERGAN) 25 MG tabletIndications:Acute diverticulitis Take 1 tablet by mouth every 6 hours as needed for Nausea/Vomiting 20 tablet 10/20/2019 simethicone (GAS-X) 80 MG chew tablet Take 80 mg by mouth sucralfate (CARAFATE) 1 GM tablet TK 1 T QID 0 05/14/2019 trandolapril (MAVIK) 2 MG tablet Take 1 tablet by mouth once daily 30 tablet 1 12/12/2019 documented as of this encounter ED Notes * Taryn Rosen RN - 11/30/2022 7:40 AM CDT CSN rounded on patient per his request. * Stanton Wolf MD - 11/30/2022 7:00 AM CDT Carlos Mcgee [id number] [facility] History Chief Complaint Patient presents with ??? Anxiety Pt c/o anxiety that yesterday after running out of his anti-anxiety and anti- depressant medications. Pt has an appointment with a new psychiatrist on 12/08. Pt was seen at another hospital this past week and tonight for the same issue. Pt denies any other complaints. Pt alert and oriented x 4, ambulatory with steady gait. 52-year-old male with history of hypertension, type 2 diabetes, anxiety/panic attacks, benzodiazepine dependence presents with request for medication refill. Patient states that he has been on Xanax for over 20 years. Patient states that he has not had a psychiatrist in several months but has an appointment next week with a new psychiatrist. Patient states he has been out of his Xanax since yesterday and is worried he is going to going to withdrawal. No SI or HI. No auditory or visual hallucinations. No chest pain. No abdominal pain. No other complaints. Past Medical History: Diagnosis Date ??? Abdominal [...] 03/12/2017 Scheduled appointment with psychiatric, April 01, [facility] in [place]. ??? Sedative, hypnotic or anxiolytic abuse, continuous 06/18/2009 ??? SOB (shortness of breath) 07/02/2015 ??? Tooth infection 08/16/2017 ??? Type 2 diabetes mellitus with hyperglycemia, without long-term current use of insulin 09/01/2019 Past Surgical History: Procedure Laterality Date ??? Cholecystectomy Family History Problem Relation Name Age of Onset ??? Stroke Father ??? Alcohol abuse Father ??? Cirrhosis Mother ??? Bipolar Disorder Mother ??? Depression Mother Social History Socioeconomic History ??? Marital status: Spouse name: Not on file ??? Number of children: 2 ??? Years of education: Not on file ??? Highest education level: Not on file Occupational History ??? Not on file Tobacco Use ??? Smoking status: Former ??? Smokeless tobacco: Never Vaping Use ??? Vaping Use: Never used Substance and Sexual Activity ??? Alcohol use: No ??? Drug use: No ??? Sexual activity: Not Currently Other Topics Concern ??? Not on file Social History Narrative Lives alone Social Determinants of Health Financial Resource Strain: Not on file Food Insecurity: Not on file Transportation Needs: Not on file Stress: Not on file Housing Stability: Not on file Review of Systems Review of Systems Cardiovascular: Negative for chest pain. All other systems reviewed and are negative. Physical Exam BP 174/96 Pulse 64 Temp 97.8 ??F (36.6 ??C) (Temporal) Resp 16 Ht 1.88 m (6' 2 ) Wt 113.9kg (251 lb) SpO2 96% BMI 32.23 kg/m?? Physical Exam Vitals and nursing note reviewed. Constitutional: General: He is not in acute distress. HENT: Head: Normocephalic and atraumatic. Eyes: General: No scleral icterus. Extraocular Movements: Extraocular movements intact. Conjunctiva/sclera: Conjunctivae normal. Cardiovascular: Rate and Rhythm: Normal rate and regular rhythm. Pulses: Normal pulses. Heart sounds: Normal heart sounds. No murmur heard. No friction rub. No gallop. Pulmonary: Effort: Pulmonary effort is normal. No respiratory distress. Breath sounds: No stridor. No wheezing or rales. Abdominal: General: There is no distension. Palpations: Abdomen is soft. Tenderness: There is no abdominal tenderness. There is no guarding or rebound. Skin: General: Skin is warm. Findings: No erythema or rash. Neurological: Mental Status: He is alert and oriented to person, place, and time. Sensory: No sensory deficit. Motor: No weakness. Psychiatric: Comments: Does not appear to be responding to internal stimuli. Medications Current Outpatient Medications Medication Sig Dispense Refill ??? albuterol HFA (PROVENTIL;VENTOLIN;PROAIR) 108 (90 Base) MCG/ACT inhaler INL 1 TO 2 PFS PO Q 4 HPRF SOB 1 Inhaler 11 ??? alfuzosin CR 24hr (UROXATRAL) 10 MG tablet Take 1 tablet by mouth once daily 30 tablet 3 ??? ALPRAZolam (Xanax) 1 MG tablet Take 1 (one) tablet by mouth 2 times daily as needed for AnxietyReasons: Feeling Anxious 14 tablet 0 ??? atenolol (TENORMIN) 100 MG tablet Take 1 tablet by mouth once daily This will be last times this will be ordered by [facility] since he has been dismissed from practice. 30 tablet 3 ??? ciprofloxacin (CIPRO) 500 MG tablet Take 1 tablet by mouth 2 times daily 20 tablet 0 ??? cyclobenzaprine (FLEXERIL) 10 MG tablet Take 10 mg by mouth 3 times daily as needed ??? diphenhydrAMINE (BENADRYL) 50 MG capsule TAKE [address] 1 capsule 0 ??? fluticasone propionate (FLONASE) 50 MCG/ACT nasal spray Lynn 2 sprays into each nostril once daily 15.8 g 11 ??? hydrALAZINE (APRESOLINE) 25 MG tablet Take 1 tablet by mouth 3 times daily 90 tablet 0 ??? hydroCHLOROthiazide (MICROZIDE) 12.5 MG capsule Take 1 capsule by mouth once daily 30 capsule 0 ??? hyoscyamine 0.125 MG tablet Take 1 tablet by mouth every 6 hours as needed for Spasms 50 tablet1 ??? hyoscyamine 0.125 MG tablet Take 1 tablet by mouth every 4 hours as needed for Spasms 30 tablet0 ??? ipratropium (ATROVENT) 0.06 % nasal spray Lynn 2 sprays into each nostril 3 times daily 15 mL 0 ??? omeprazole (PRILOSEC) 20 MG capsule Take 1 capsule by mouth once daily 30 capsule 0 ??? polyethylene glycol (GOLYTELY;NULYTELY) 240 g solution Drink 1/2 of prep at 5pm the night before test. Finish the prep at 4am the day of test. 4000 mL 0 ??? predniSONE (DELTASONE) 50 MG tablet TAKE 1 TAB @ 13 HRS, 7 HRS, AND [address] 3 tablet 0 ??? promethazine (PHENERGAN) 25 MG tablet Take 1 tablet by mouth every 6 hours as needed for Nausea/Vomiting 20 tablet 0 ??? simethicone (GAS-X) 80 MG chew tablet Take 80 mg by mouth ??? sucralfate (CARAFATE) 1 GM tablet TK 1 T QID 0 ??? trandolapril (MAVIK) 2 MG tablet Take 1 tablet by mouth once daily 30 tablet 1 Procedures Procedures Lab/SPO2 Interpretation No results found for this visit on 11/30/22. No orders to display Progress Notes ED Course Clinical Impressions as of 11/30/22 0728 Anxiety Encounter for medication refill Medical Decision Making 52-year-old male with history of hypertension, type 2 diabetes, anxiety/panic attacks, benzodiazepine dependence presents with request for medication refill. Patient states that he has been on Xanax for over 20 years. Vital signs reveal hypertension. Exam unremarkable. Patient has no evidence of withdrawal symptoms. Patient is clearly here for a medication refill. There is some concern for drug-seeking behavior. Patient started to get frustrated when I was having a conversation about why emergency physicians hesitate to prescribe benzodiazepines. Patient also has had at multiple visits in thevast several years for medication refills for Xanax however these are relatively infrequent. Will give the patient the benefit of the doubt and will give patient a prescription for 1 week of benzodiazepines since if patient truly has been on Xanax for multiple decades that the risk of withdrawal seizure is a real possibility. No indication for labs or imaging at this time. Orders Placed This Encounter ??? ALPRAZolam (Xanax) 1 MG tablet Follow-up Information Your new psychiatrist. * Peggy Moore RN - 11/30/2022 5:38 AM CDT Pt presents to the ED with c/o anxiousness and out of anxiety medications . Pt states, I have been out of my lexapro since Wednesday and I am starting to feel anxious. Every time I go to a hospital they laugh and tell me to go to see my primary Doctor. I have an appt with my doctor next Wednesday. I am not a psych patient, I have never been to a mental hospital a day in my life. I don't want to go into a seizure because I quit cold turkey. My last seizure was about 5 years ago but I was not given any presciptions Pt is sitting on the edge of the bed, visibly anxious. Pt is cooperative. * John Saldivar RN - 11/30/2022 5:03 AM CDT Bed: 27 Expected date: Expected time: Means of arrival: Comments: TRIAGE * Lisa Bonilla RN - 11/30/2022 3:35 AM CDT Pt c/o anxiety that yesterday after running out of his anti-anxiety and anti- depressant medications. Pt has an appointment with a new psychiatrist on 12/08. Pt was seen at another hospital this past week and tonight for the same issue. Pt denies any other complaints. Pt alert and oriented x 4, ambulatory with steady gait. Lisa Bonilla RN 11/30/2022 3:35 AM documented in this encounter Plan of Treatment Not on file documented as of this encounter Visit Diagnoses Diagnosis Anxiety Anxiety state, unspecified Encounter for medication refill Issue of repeat prescriptions documented in this encounter
--- OUTSIDE RECORDS SUMMARY | 2024-09-10 03:43 | XMS_ITS | Encounter Summary ---
Author Organization [facility] Address [address] [facility] [place] [address] Care Team Providers Care Stage Settings Painter Name Role Phone Unavailable Primary Care Provider Unavailabl e Reason for Visit * Reason Onset Date Comments Refill Request 09/02/2020 Encounter Details Date Type Department Care Team (Late st Contact Info) Description 09/02/2020 Telephone [facility] [address] [place], [place] [id number] Linda Frost MD [address] [place] [id number] Refill Request Social History Tobacco Use Types [...] encounter Miscellaneous Notes * Telephone Encounter - Linda Frost MD - 09/02/2020 9:38 PM GOLD LEAF PRINTER I received a call through the cluster bore operator after hours from the patient requesting refill on his BP medicine (atenolol) and diverticulitis medicine hyoscyamine and a cipro course, he said he was not ableto schedule a colonoscopy since December due to the pandemic, as I was trying to get more information on the current problem and the last contact with the PCP, the patient continued to say I'm not trying to be rude but the pharmacy will close in 20 minutes and I need my medicine tonight also said I was trying to contact the office and left several messages with no answer I opened the patient's chart and found a dismissal notice, however, couldn't find any calls from the patient, the last note was around 03/26- regarding the previously scheduled colonoscopy and that the patient didn't answer. I refilled the requested meds, and recommended that the patient check on what happened to the lost follow up, he insisted that he is scheduled with the PCP Vivienne on September. This note will be routed to Vivienne and Norah to confirm the status of the patient who denied receiving any letter or communication with our office since December., the dismissal was not discussed withthe patient till further confirmation with the office during office hours. Linda Frost MD LEAF PRINTER documented in this encounter Plan of Treatment Not on file documented as of this encounter Visit Diagnoses Diagnosis Essential hypertension- Primary Acute diverticulitis documented in this encounter
--- OUTSIDE RECORDS SUMMARY | 2024-09-10 03:44 | XMS_ITS | Encounter Summary ---
Author Organization [facility] Address [address] [facility] [place] [address] Care Team Providers Care Trimmer And Reinforcer Name Role Phone Unavailable Primary Care Provider Unavailabl e Reason for Visit * Reason Onset Date Comments Medication Prior Auth Request 10/30/2019 Encounter Details Date Type Department Care Team (Late st Contact Info) Description 10/30/2019 Telephone [facility] [address] [facility] [address] [place] [address] Bayron Bernal MD [address] [facility] [place] [address] Medication Prior Auth Request Social History Tobacco Use Types Packs/Day [...] encounter Miscellaneous Notes * Telephone Encounter - Remedios Catalan LPN - 10/30/2019 11:01 AM [employer] PA for Ipratropium was denied by insurance. Pharmacy notified. Appeal info placed in providers box. [employer] * Telephone Encounter - Remedios Catalan LPN - 10/30/2019 8:43 AM [employer] Insurance requires prior auth for Ipratropium. Prior auth request submitted on line at [employer]. Office notes submitted with request Yes. Waiting for insurance response. Cover My Meds jimenez:[id number] [employer] documented in this encounter Plan of Treatment Not on file documented as of this encounter Visit Diagnoses Not on filedocumented in this encounter
--- OUTSIDE RECORDS SUMMARY | 2024-09-10 03:44 | XMS_ITS | Encounter Summary ---
Author Organization [facility] Health Address [address] [facility] [facility] [place] [address] Care Team Providers Care Vehicle Body Builder Name Role Phone Unavailable Primary Care Provider Unavailabl e Reason for Visit * Reason Onset Date Comments Blood Pressure 12/01/2019 Encounter Details Date Type Department Care Team (Late st Contact Info) Description 12/01/2019 Telephone [facility] [address] [place] [address] Radha Palafox, PROJECT SURVEYOR-HOIST OPERATOR [address] OF [facility] [place] [id number] Blood Pressure Social History Tobacco Use Types Packs/Day Years [...] encounter Miscellaneous Notes * Telephone Encounter - Venus Powell RN - 12/01/2019 10:51 AM CDT Carlos Mcgee was transferred to pr. He is demanding to speak to someone about his BP and intermittent Headache. He will not return to the ER.( which he was in on 11/18/19) He stated he went to the ER with Headache and elevated BP. They gave him a breathing treatment and his BP went down. He did not trust the ER pressure reading because the cuff was too tight and was probably registering lower than it was. He stated that someone informed him he was dismissed from the Practice but denies he received a letter stating it. He also stated that he know that Lilian [facility] still is responsible for his care for 30 days. I tried to let him know that if his BP went down after a breathing treatment heprobably did not necessarily need another BP medication. He became upset and stated that he takes his BP in stores and that yesterday it was 153/96. He would like additional medication sent to [facility] in [place], [place]. Mallory in the Call Center stated that he has called four times this morning and sounds like he is becoming increasingly agitated. * Telephone Encounter - Mallory Flores RN - 12/01/2019 10:44 AM CDT Calling for the fourth time and wants to speak with venus He wants a call back with answer no matter what outcome I advised him that I would let her know Call to escalation * Telephone Encounter - Mallory Flores RN - 12/01/2019 10:17 AM CDT bp 197/97 on Wednesday 156/106 Headache See triage documented in this encounter Plan of Treatment Not on file documented as of this encounter Visit Diagnoses Not on filedocumented in this encounter
--- OUTSIDE RECORDS SUMMARY | 2024-09-10 03:44 | XMS_ITS | Encounter Summary ---
Author Organization [facility] Address [address] [place] [address] Care Team Providers Care Sexual Assault Counsellor Name Role Phone Unavailable Primary Care Provider Unavailabl e Encounter Details Date Type Department Care Team (Latest Contact Info) Description 11/28/2019 Travel Social History Tobacco Use Types Packs/Day [...]
--- OUTSIDE RECORDS SUMMARY | 2024-09-10 03:44 | XMS_ITS | Encounter Summary ---
Author Organization [facility] Address [address] [place] [address] Care Team Providers Care Winder Fixer Name Role Phone Unavailable Primary Care Provider Unavailabl e Reason for Visit * Reason Onset Date Comments Question 11/10/2019 Encounter Details Date Type Department Care Team (Late st Contact Info) Description 11/10/2019 Telephone [facility] [address] [place] [address] Tami Case, RN Question Social History Tobacco Use Types Packs/Day Years [...] encounter Miscellaneous Notes * Telephone Encounter - Tami Case RN - 11/10/2019 9:10 AM CST Pt states he was seen by provider yesterday, doesn't remember how. Wants to Know if she is in today. States he has questions and additional problems he needs to discuss with her, problems he did not share with her yesterday. Attempted to gather information . Pt refused. States it is personal and heonly wants to speak to her. According to chart, pt was seen by A VENTURA Lara. Will forward to to COPPER FLOTATION OPERATOR for review. Pt would like to be called at [phone] HER KINDERGARTEN documented in this encounter Plan of Treatment Not on file documented as of this encounter Visit Diagnoses Not on filedocumented in this encounter
--- OUTSIDE RECORDS SUMMARY | 2024-09-10 03:44 | XMS_ITS | Encounter Summary ---
Author Organization [facility] Address [address] [facility] [place] [address] Care Team Providers Care Sales Representative Metals Name Role Phone Unavailable Primary Care Provider Unavailabl e Reason for Visit * Reason Comments Establish Care Dysuria Encounter Details Date Type Department Care Team (Late st Contact Info) Description 11/09/2019 10:00 AM SENIOR MECHANICAL DESIGNER Office Visit [facility] [address] [place], [place] [id number] Regina Lara APRN-CNP [address] [place] [address] Lower urinary tract symptoms (LUTS) (Primary Dx); Gross hematuria Social History Tobacco Use Types Packs/Day Years [...] Sign Reading Time Taken Comments Blood Pressure 142/87 11/09/2019 10:04 AM SENIOR MECHANICAL DESIGNER Pulse 66 11/09/2019 10:04 AM SENIOR MECHANICAL DESIGNER Temperature 36.3 ??C (97.3 ??F) 11/09/2019 10:[address] Respiratory Rate - - Oxygen Saturation 98% 11/09/2019 10:04 AM SENIOR MECHANICAL DESIGNER Inhaled Oxygen Concentration - - Weight 132.5 kg (292 lb) 11/09/2019 10:04 AM SENIOR MECHANICAL DESIGNER Height 186.7 cm (6' 1.5 ) 11/09/2019 10:04 AM CS T Body Mass Index 38 11/09/2019 10:04 AM SENIOR MECHANICAL DESIGNER documented in this encounter Patient Instructions * Patient Instructions* Regina Lara APRN-CNP - 11/09/2019 10:59 AM SENIOR MECHANICAL DESIGNER Patient Education Hematuria WHAT YOU NEED TO KNOW: What is hematuria? Hematuria is blood in your urine. Your urine may be bright red to dark brown. What other signs and symptoms might I have with hematuria? ?? Fever ?? Nausea and vomiting ?? Pain or bruising on your lower back or sides ?? Pain when you urinate ?? More urination than usual, or the need to urinate right away What causes hematuria? Ask your healthcare provider for more information about these and other causes of hematuria: ?? Urinary tract infection ?? Kidney or bladder stones ?? Swollen prostate ?? Kidney disease ?? Abdomen or pelvic injury ?? Kidney, bladder, or prostate cancer ?? Intense exercise How is hematuria diagnosed? Your healthcare provider will ask when you first saw a change in the color of your urine. Tell him about any medical conditions or medicines you take. Some medicines can damage your kidneys or increase your risk for bleeding. You may need any of the following: ?? Blood and urine tests may show infection and how well your kidneys are working. ?? An x-ray, ultrasound, or CT may show the cause of your hematuria. You may be given contrast liquid to help your urinary tract show up better in the pictures. Tell the healthcare provider if you have ever had an allergic reaction to contrast liquid. How is hematuria treated? Hematuria may go away without treatment. You may need medicines to treat an infection. Treatment depends on the cause of your hematuria. Ask your healthcare provider for more information about the treatment you may need. How can I manage my symptoms? Drink liquids as directed. You may need to drink extra liquids to help flush the blood from your body through your urine. Water is the best liquid to drink. Ask how muchliquid to drink each day and which liquids are best for you. When should I seek immediate care? ?? You have blood in your urine after a new injury, such as a fall. ?? You are urinating very small amounts or not at all. ?? You feel like you cannot empty your bladder. ?? You have severe back or side pain that does not go away with treatment. When should I contact my healthcare provider? ?? You have a fever that gets worse or does not go away with treatment. ?? You cannot keep liquids or medicines down. ?? Your urine gets darker, even after you drink extra liquids. ?? You have questions or concerns about your condition, treatment, or care. CARE AGREEMENT: You have the right to help plan your care. Learn about your health condition and how it may be treated. Discuss treatment options with your healthcare providers to decide what care you want to receive. You always have the right to refuse treatment. The above information is an braider tender only. It is not intended as medical advice for individual conditions or treatments. Talk to your doctor, nurse or pharmacist before following any medical regimen to see if it is safe and effective for you. ?? Copyright [employer] 2019 Information is for End User's use only and may not be sold, redistributed or otherwise used for commercial purposes. All illustrations and images included in CareNotes?? are the copyrighted property of [employer]. or [employer] Patient Education Dysuria WHAT YOU NEED TO KNOW: What is dysuria? Dysuria is difficulty urinating, or pain, burning, or discomfort when you urinate.Dysuria is usually a symptom of another problem. What causes dysuria? The following are the most common causes of dysuria: ?? Infections, such as urinary tract infections and sexually transmitted infections ?? Trauma, such as bicycle injury or sexual abuse ?? Abnormal structure, such as narrowing of the urethra ?? Blockage, such as kidney stones ?? Medical conditions, such as constipation, enlarged prostate, and reactive arthritis ?? Chemicals, such as douches, spermicides, and bubble bath ?? Medicines, such as chemotherapy What increases my risk for dysuria? ?? Dehydration ?? Loss of bladder muscle strength due to older age ?? Holding urine in your bladder for a long period of time ?? Caffeine, soda, alcohol, and citrus drinks What other symptoms may I have with dysuria? ?? Fever ?? Cloudy, bad smelling urine ?? Urge to urinate often but urinating little ?? Back, side, or abdominal pain ?? Blood in your urine ?? Discharge that smells bad ?? Itching ?? Swelling of your genitals ?? Pain with ejaculation or bowel movement (for males) How is dysuria diagnosed? Your healthcare provider will examine you and ask about your symptoms. Tell your healthcare provider about any medicines you are taking. You may need any of the following tofind the cause of your dysuria: ?? A urine test may be done to look for bacteria, blood, or pus. ?? A blood test may be done to look for signs of infection. ?? A cystoscopy allows healthcare providers to look for problems inside your bladder. A scope is put into your bladder through your urethra. The scope is a flexible tube with a light and camera on the end. ?? An ultrasound uses sound waves to show pictures on a monitor. An ultrasound may be done to show problems in your bladder. How is dysuria treated? Treatment will depend on what is causing your dysuria. Your healthcare provider may refer you to a specialist, such as a urologist or a clinic specialist. You may need medicines tohelp treat a bacterial infection or help decrease bladder spasms. How can I manage my dysuria? ?? Drink more liquids. Liquids help flush out bacteria that may be causing an infection. Ask your healthcare provider how much liquid to drink each day and which liquids are best for you. ?? Take sitz baths as directed. Fill a bathtub with 4 to 6 inches of warm water. You may also use asitz bath herzog that fits over a toilet. Sit in the sitz bath for 20 minutes. Do this 2 to 3 times a day, or as directed. The warm water can help decrease pain and swelling. When should I seek immediate care? ?? You have severe back, side, or abdominal pain. ?? You have fever and shaking chills. ?? You vomit several times in a row. When should I contact my healthcare provider? ?? Your symptoms do not go away, even after treatment. ?? You have questions or concerns about your condition or care. CARE AGREEMENT: You have the right to help plan your care. Learn about your health condition and how it may be treated. Discuss treatment options with your healthcare providers to decide what care you want to receive. You always have the right to refuse treatment. The above information is an braider tender only. It is not intended as medical advice for individual conditions or treatments. Talk to your doctor, nurse or pharmacist before following any medical regimen to see if it is safe and effective for you. ?? Copyright [employer] 2019 Information is for End User's use only and may not be sold, redistributed or otherwise used for commercial purposes. All illustrations and images included in CareNotes?? are the copyrighted property of [employer] or [employer] OR MECHANICAL DESIGNER documented in this encounter Progress Notes * Regina Lara APRN-CNP - 11/09/2019 1:26 PM CST [facility] Division of Urologic Surgery MELISA Lugo Date of Visit: 11/09/2019 Patient Name: Carlos Mcgee : 1970 Medical Record: [id number] Contact (home) Age: [age] year old Sex: male Referring Physician: MELISA Diaz [address] [phone] Chief Complaint: Dysuria History of Present Illness: The patient is a 49 year old male for new evaluation and treatment of lower urinary tract symptoms.These include urinary urgency/frequency. Pt does have decreased urinary stream. Pt does not have a history of urinary retention. Nocturia 5 times/night. No history of UTI. Reports episode of hematuria x 1 about 4 weeks ago. States symptoms of dysuria, frequency, and urgency started about 2 months ago around the time he was diagnosed with Type 2 DM. Dysuria is worse with intake of soda and sports drinks. Reports he has been seen at ER with this complaint and by his PCP, has had negative urine cultures. States he was told in 2000 that he had a kidney stone in my left kidney that I would probably with, denies passage of stones or history of stone surgery. VENTURA Palafox prescribed Tamsulosin for his complaints a couple of weeks ago but pt states pharmacist would not fill this because I am allergic to Sulfa. He was then prescribed Finasteride, never took this. Pt does not have a familyhistory of prostate cancer or other malignancy. AUA SS is 24/35 with 6/6 bother. Pt made many references throughout the appointment about being depressed and stated, I could have cancer and I wouldn't care. Denies suicidal ideation. Pt continued to perseverate throughout the appointment on the fact he was fired by his psychiatrist and had to seek treatment at ER to get refillon his Alprazolam a couple of days ago. States he is going to see a new psychiatrist on Wednesday11/13/19. Past Medical History; Past Medical History: Diagnosis Date ??? Abdominal [...] 03/12/2017 Scheduled appointment with psychiatric, April 01, [facility] in [place]. ??? Sedative, hypnotic or anxiolytic abuse, continuous 06/18/2009 ??? SOB (shortness of breath) 07/02/2015 ??? Tooth infection 08/16/2017 ??? Type 2 diabetes mellitus with hyperglycemia, without long-term current use of insulin 09/01/2019 Past Surgical History: Past Surgical History: Procedure Laterality Date ??? Cholecystectomy Current Medications: Current Outpatient Medications Medication Sig Dispense Refill ??? albuterol HFA (PROVENTIL;VENTOLIN;PROAIR) 108 (90 Base) MCG/ACT inhaler INL 1 TO 2 PFS PO Q 4 HPRF SOB 1 Inhaler 11 ??? alfuzosin CR 24hr (UROXATRAL) 10 MG tablet Take 1 tablet by mouth once daily 30 tablet 3 ??? atenolol (TENORMIN) 100 MG tablet Take 1 tablet by mouth once daily 30 tablet 5 ??? cyclobenzaprine (FLEXERIL) 10 MG tablet Take 10 mg by mouth 3 times daily as needed ??? fluticasone propionate (FLONASE) 50 MCG/ACT nasal spray [place] 2 sprays into each nostril once daily 15.8 g 11 ??? hyoscyamine 0.125 MG tablet Take 1 tablet by mouth every 4 hours as needed for Spasms 30 tablet0 ??? ipratropium (ATROVENT) 0.06 % nasal spray [place] 2 sprays into each nostril 3 times daily 15 mL 0 ??? omeprazole (PRILOSEC) 40 MG capsule Take 1 capsule by mouth daily before breakfast 30 capsule 6 ??? promethazine (PHENERGAN) 25 MG tablet Take 1 tablet by mouth every 6 hours as needed for Nausea/Vomiting 20 tablet 0 ??? simethicone (GAS-X) 80 MG chew tablet Take 80 mg by mouth ??? sucralfate (CARAFATE) 1 GM tablet TK 1 T QID 0 No current facility-administered medications for this visit. Allergies; Contrast-iodinated agents for ct/other; Lidocaine; Metformin; Paxil [paroxetine]; Percocet [oxycodone-acetaminophen]; Sulfa drugs; Losartan; Glimepiride; Bactrim ds; and Levaquin Family History: Family History Problem Relation Name Age of Onset ??? Stroke Father ??? Alcohol abuse Father ??? Cirrhosis Mother ??? Bipolar Disorder Mother ??? Depression Mother Social History: Social History Socioeconomic History ??? Marital status: Spouse name: Not on file ??? Number of children: 2 ??? Years of education: Not on file ??? Highest education level: Not on file Occupational History ??? Not on file Social Needs ??? Financial resource strain: Not on file ??? Food insecurity Worry: Not on file Inability: Not on file ??? Transportation needs Medical: Not on file Non-medical: Not on file Tobacco Use ??? Smoking status: Former Smoker ??? Smokeless tobacco: Never Used Substance and Sexual Activity ??? Alcohol use: No ??? Drug use: No ??? Sexual activity: Not Currently Lifestyle ??? Physical activity Days per week: Not on file Minutes per session: Not on file ??? Stress: Not on file Relationships ??? Social connections Talks on phone: Not on file Gets together: Not on file Attends hoahaoism service: Not on file Active member of club or organization: Not on file Attends meetings of clubs or organizations: Not on file Relationship status: Not on file ??? Intimate partner violence Fear of current or ex partner: Not on file Emotionally abused: Not on file Physically abused: Not on file Forced sexual activity: Not on file Other Topics Concern ??? Not on file Social History Narrative Lives alone Review of Systems Constitutional: Positive for diaphoresis and fatigue. Negative for fever and unexpected weight change. HENT: Positive for trouble swallowing. Respiratory: Positive for shortness of breath. Negative for cough and wheezing. Cardiovascular: Positive for chest pain and palpitations. Gastrointestinal: Positive for abdominal pain, blood in stool, constipation, diarrhea and nausea. Genitourinary: Positive for dysuria, frequency, hematuria and urgency. Negative for flank pain and testicular pain. Nocturia Musculoskeletal: Positive arthritis and stiffness Skin: Positive for rash. Neurological: Positive for dizziness, numbness (and tingling in lower extremities ) and headaches. Psychiatric/Behavioral: Positive for sleep disturbance. Negative for suicidal ideas. Positive anxiety and depression All other systems reviewed and are negative. Physical Exam: Vital Signs: BP 142/87 Pulse 66 Temp 97.3 ??F (36.3 ??C) (Oral) Ht 6' 1.5 (1.867 m) Wt 292 lb (132.5 kg) SpO2 98% BMI 38 kg/m2 Physical Exam Constitutional: General: He is not in acute distress. Appearance: He is obese. He is not ill-appearing or diaphoretic. HENT: Head: Normocephalic and atraumatic. Cardiovascular: Rate and Rhythm: Normal rate. Pulmonary: Effort: Pulmonary effort is normal. No accessory muscle usage. Abdominal: General: There is no distension. Tenderness: There is no abdominal tenderness. There is no right CVA tenderness or left CVA tenderness. Skin: General: Skin is warm and dry. Coloration: Skin is not pale. Neurological: Mental Status: He is alert. Psychiatric: Attention and Perception: Attention normal. Mood and Affect: Mood is depressed. Speech: Speech normal. Behavior: Behavior is cooperative. Cognition and Memory: Cognition normal. Judgment: Judgment normal. PVR per bladder scanner: 30 ml Imaging (images and reports reviewed): No recent pertinent imaging Laboratory Studies: Office Visit on 11/09/19 URINALYSIS AUTO - POINT OF CARE (AMB) [facility] Result Value Ref Range Glucose UA - Bilirubin UA POCT 1+ Ketones UA POCT - Specific [place] UA 1.025 Blood Urine POCT - pH UA 6.0 Protein UA 1+ Urobilinogen UA +- Nitrite UA - WBC UA +- Microbiology: No recent cultures Pathology: No pertinent pathology Diagnosis: 49 y/o male with LUTs and history of gross hematuria. Recommendations: LUTS: AUA guidelines recommend with basic management of LUTS/BPH to start with limiting fluid intake, lifestyle modifications, and alphablocker. Explained that his poorly controlled diabetes is likely a contributing factor to his urinary complaints. Urine culture collected. Explained that a reaction to Tamsulosin (when allergic to Sulfa) is extremely rare and unlikely to occur but will avoid d/t pt's concern. Recommend Alfuzosin 10 mg PO daily for treatment of dysuria/LUTS. Stop Finasteride 5 mg PO daily. If pt does not get improvement in symptoms, may consider dual therapy with anticholinergic to help with irritative symptoms. Gross hematuria: We discussed the diagnosis of hematuria with specific references to increased risk status (such as smoking, industrial exposures, and family history). The patient had understanding of the diagnosis and was given opportunities to ask questions throughout the clinic visit. We discussed the general workup for hematuria including urinalysis, upper tract abdominal imaging (CT Urogram), and lower tract visualization (cystoscopy). Will obtain CT Urogram and follow up with cystoscopy in office. Procedure explained in detail to pt. Encouraged pt to keep appointment with new psychiatrist or speak with PCP regarding his symptoms ofdepression. 30 minutes were spent with patient. >50% were spent counseling patient. Patient's questions were answered and patient agrees with plan. MELISA Lugo 11/09/2019 1:26 PM OR MECHANICAL DESIGNER documented in this encounter Plan of Treatment Not on file documented as of this encounter Procedures Procedure Name Priority Date/Time Associated Diagnosis Comments URINALYSIS AUTO - POINT OF CARE (AMB) [facility] Routine 11/09/2019 10:21 AM SENIOR MECHANICAL DESIGNER Lower urinary tract symptoms (LUTS) documented in this encounter Results * CULTURE URINE (11/09/2019 2:41 PM SENIOR MECHANICAL DESIGNER) Culture Urine No growth (<100 CFU/mL) KATIE 11/11/2019 7:21 AM SENIOR MECHANICAL DESIGNER [facility] Urine URINE SPECIMEN OBTAINED BY CLEAN CATCH PROCEDURE / Unknown Collection / Unknown 11/09/2019 2:41 PM SENIOR MECHANICAL DESIGNER 11/09/2019 2:56 PM SENIOR MECHANICAL DESIGNER [facility] - MICROBIOLO GY ORDERABLES [facility] [address] [place] [address], [facility] [phone] * URINALYSIS AUTO - POINT OF CARE (AMB) [facility] (11/09/2019 10:21 AM SENIOR MECHANICAL DESIGNER) Glucose UA - Bilirubin UA POCT 1+ Ketones UA POCT - Specific [place] UA 1.025 Blood Urine POCT - pH UA 6.0 Protein UA 1+ Urobilinogen UA +- Nitrite UA - WBC UA +- Urine URINE / Unknown 11/09/2019 1 0:21 AM SENIOR MECHANICAL DESIGNER Regina Lara APRN-[facility] - POINT OF C ARE ORDERABLES documented in this encounter Visit Diagnoses Diagnosis Lower urinary tract symptoms (LUTS)- Primary Other symptoms involving urinary system Gross hematuria documented in this encounter
--- OUTSIDE RECORDS SUMMARY | 2024-09-10 03:44 | XMS_ITS | Encounter Summary ---
Author Organization [facility] Address [address] [place] [address] Care Team Providers Care Linderman Machine Operator Name Role Phone Unavailable Primary Care Provider Unavailabl e Reason for Visit * Reason Onset Date Comments Advice Only 12/03/2019 Encounter Details Date Type Department Care Team (Late st Contact Info) Description 12/03/2019 Telephone [facility] [address] [place], [place] [id number] North Raza MD [address] OF [facility] INTERNAL MEDICINE [place], [place] [id number] Advice Only Social History Tobacco Use Types Packs/Day Years [...] encounter Miscellaneous Notes * Telephone Encounter - Mallory Flores RN - 12/04/2019 8:41 AM CDT Patient calling and states that hydralzine is unable take due to tightness in chest Pelase advise on a different medication Spoke with Dr Raza over weekend [phone] * Telephone Encounter - North Raza MD - 12/03/2019 7:13 PM CDT The patient was connected by [facility] Operators to the Rod Bending Machine Operator [facility] Physician. The patient tells me he understands he has been discharged from the practice but he has received nowritten notification and that we need to care for him for 30 days He asks for a COVID 19 test He has spoken to an [place] [facility] who did not test him. He tells me he was told to call his doctor. I told him I could not order a test. I recommended he contact Cassandra or MARLENI and contact their COVID testing lines for advice He did not share any symptoms. He reports blood pressure readings consistently of 170/100 to 110 No symptoms He takes atenolol 100 mg dialy He tells me he cannot take amlodipine or HCTZ due to side effects or allergy to sulfa. Prescription for hydralazine 25 mg tid He will monitor his blood pressure. I recommended that he contact his insurance about a new PCP. Referral for Social Work assistance. documented in this encounter Plan of Treatment Not on file documented as of this encounter Visit Diagnoses Diagnosis Essential hypertension- Primary documented in this encounter
--- OUTSIDE RECORDS SUMMARY | 2024-09-10 03:44 | XMS_ITS | Encounter Summary ---
Author Organization [facility] Health Address [address] [facility] [place] [address] Care Team Providers Care Conveyor System Operator Name Role Phone Unavailable Primary Care Provider Unavailabl e Reason for Visit * Reason Onset Date Comments MEDICATION REFILL 11/17/2019 Encounter Details Date Type Department Care Team (Late st Contact Info) Description 11/17/2019 Refill [facility] [address] [facility] [address] [place] [address] Radha Palafox APRN-CNP [address] OF [facility] [place] [id number] MEDICATION REFILL Social History Tobacco Use Types [...] encounter Miscellaneous Notes * Telephone Encounter - Radha Palafox APRN-CNP - 11/17/2019 6:24 PM MARINE PIPEFITTER HELPER [place] will not cover more Omeprazole 40 mg Decrease 20 mg MELISA Diaz NE PIPEFITTER HELPER documented in this encounter Plan of Treatment Not on file documented as of this encounter Visit Diagnoses Not on filedocumented in this encounter
--- OUTSIDE RECORDS SUMMARY | 2024-09-10 03:44 | XMS_ITS | Encounter Summary ---
Author Organization [facility] Address [address] [facility] [place] [address] Care Team Providers Care Automated Teller Manager Name Role Phone Unavailable Primary Care Provider Unavailabl e Reason for Visit * Reason Onset Date Comments Advice Only 12/09/2019 Encounter Details Date Type Department Care Team (Late st Contact Info) Description 12/09/2019 Telephone [facility] [address] [facility] [address] [place] [address] Rama Torrez, MELISA [address] OF [facility] [place] [place] [address] Advice Only Social History Tobacco Use Types [...] encounter Miscellaneous Notes * Telephone Encounter - Rama Torrez APRN-CNP - 12/09/2019 4:12 PM CDT electric installer note. Received call from patient via [facility] gravity prospecting operator. Reports he tested negative for covid 19 [place] the state, but still having allergy symptoms includingsneezing, rhinorrhea, congestion, sinus pain, and is taking ibuprofen, tylenol, drinking water, resting and taking benadryl. Could trial OTC nasal spray. Educated on possible length of symptoms. Notes he feels pretty badly. To go to UC or ED to be evaluated if symptoms worsen or develops respiratory distress. Wondering if he needs antibiotics. Has only had symptoms about 5 days. Educated that most sinus infections are viral in nature and do not require antibiotics and that after 10 days, we consider the infection could be bacterial. I again advised patient to go to UC if he feels he needs antibiotics or can discuss with PCP Wednesday morning, if she would feel comfortable prescribing abx over the phone, but again, has not had symptoms long enough to consider bacterial and without evaluating him or can get him an appointment in clinic next week. I am not going to prescribe abx. Notes this is not really the reason he is calling. Is calling because he is almost out of his alprazolam and needs a refill. Does not want to go to any facility due to covid outbreak. I notified patient that [facility] does not refill controlled substances on weekends and does not appear that [facility] has everfilled this medication. He notes that [facility] has never filled alprazolam But that his psych appointment has been pushed back and he needs it. I notified patient that I could not fill this. If he feels he is in dire need of the medication, needs to go to or the ED for evaluation. Went on about how his PCP and overseeing MD do not care about his health and treatment. Frustrated that he cannot get mediations prescribed during call. Patient become verbally frustrated with provider and advice and ended the call. Routing to PCP: VENTURA Palafox and Dr. Raza. MELISA Sparks documented in this encounter Plan of Treatment Not on file documented as of this encounter Visit Diagnoses Not on filedocumented in this encounter
--- OUTSIDE RECORDS SUMMARY | 2024-09-10 03:44 | XMS_ITS | Encounter Summary ---
Author Organization [facility] Address [address] [facility] [place] [address] Care Team Providers Care Associate Civil Engineer Name Role Phone Unavailable Primary Care Provider Unavailabl e Reason for Visit * Reason Comments Anxiety Pt states no appt un til 12/11, pt states out of medications. Pt states out of xanax, having bad withdrawls. Pt seen at [facility] ER today. Pt denies SI/HI. Pt c/o feeling jittery and not like himself Encounter Details Date Type Department Care Team (Late st Contact Info) Description 11/18/2019 9:20 AM ELECTRICAL WIRER - 11/18/2019 10:29 AM ELECTRICAL WIRER Emergency ER at [facility] [address] [place] [id number] Benzodiazepine dependence, continuous (HCC); Drug-seeking behavior Discharge Disposition: Home or Self Care Social [...] Sign Reading Time Taken Comments Blood Pressure 163/92 11/18/2019 8:51 AM ELECTRICAL WIRER Pulse 68 11/18/2019 8:51 AM ELECTRICAL WIRER Temperature 36.4 ??C (97.5 ??F) 11/18/2019 8:51 AM CS T Respiratory Rate 18 11/18/2019 8:51 AM ELECTRICAL WIRER Oxygen Saturation 100% 11/18/2019 8:51 AM ELECTRICAL WIRER Inhaled Oxygen Concentration - - Weight 106.6 kg (235 lb) 11/18/2019 8:51 AM ELECTRICAL WIRER Height 188 cm (6' 2 ) 11/18/2019 8:51 AM ELECTRICAL WIRER Body Mass Index 30.17 11/18/2019 8:51 AM ELECTRICAL WIRER documented in this encounter Discharge Instructions * Discharge Instructions* Silvio Ghotra PA-C - 11/18/2019 9:29 AM ELECTRICAL WIRER GO DIRETLY TO [facility] ER FOR EVALUATION FOR INTAKE INTO THIER BENZO DETOX PROGRAM. To access mental health services regardless of ability to pay, contact the [facility] mental health center for your area. They are able to provide counseling, psychiatrist appointments and other services. There may be a waiting list for these services. [facility]: Critical Access Hospital: [phone] [facility] and [facility]: [facility] Behavioral Health: [phone] [facility]: [facility] [phone] [place] and [facility]: [place] [phone] If a crisis arises call a crisis line: Behavioral Health Response: [phone] Life Crisis: [phone] ([phone]) [facility] (counselors only) [phone] [address] [facility] [phone] Center for Tra[facility]: [phone] [address] [facility] Psychological & Family Services [phone] [address] [facility] Psychological Service @ [facility] [phone] [address] [facility] Children & Family [phone] [address] [facility] ( [phone]) [facility] Family & Childrens' Service [address] [place] ([phone]) [phone] TRICAL WIRER documented in this encounter Medications at Time of Discharge Medication Sig Dispensed Refills Start Date End Date albuterol HFA (PROVENTIL;VENTOLIN;PROAI R) 108 (90 Base) MCG/ACT inhaler INL 1 TO 2 PFS PO Q 4 H PRF SOB 1 Inhaler 11 08/01/2019 alfuzosin CR 24hr (UROXATRAL) 10 MG tablet Take 1 tablet by mouth once daily 30 tablet 3 11/09/2019 cyclobenzaprine (FLEXERIL) 10 MG tablet Take 10 mg by mouth 3 times daily as needed 10/06/2019 fluticasone propionate (FLONASE) 50 MCG/ACT nasal spray Dietrich 2 sprays into each nostril once daily 15.8 g 11 08/01/2019 hyoscyamine 0.125 MG tabletIndications:Acute diverticulitis Take 1 tablet by mouth every 4 hours as needed for Spasms 30 tablet 09/30/2019 ipratropium (ATROVENT) 0.06 % nasal spray Dietrich 2 sprays into each nostril 3 times daily 15 mL 10/28/2019 omeprazole (PRILOSEC) 20 MG capsule Take 1 capsule by mouth once daily 30 capsule 11/17/2019 promethazine (PHENERGAN) 25 MG tabletIndications:Acute diverticulitis Take 1 tablet by mouth every 6 hours as needed for Nausea/Vomiting 20 tablet 10/20/2019 simethicone (GAS-X) 80 MG chew tablet Take 80 mg by mouth sucralfate (CARAFATE) 1 GM tablet TK 1 T QID 0 05/14/2019 ALPRAZolam XR 24hr (XANAX XR) 1 MG tablet Take 1 tablet by mouth once daily 3 tablet 11/18/2019 11/30/2022 atenolol (TENORMIN) 100 MG tablet Take 1 tablet by mouth once daily 30 tablet 5 08/01/2019 12/26/2019 ciprofloxacin (CIPRO) 500 MG tabletIndications:Acute diverticulitis Take 1 tablet by mouth 2 times daily for 10 days 20 tablet 09/30/2019 12/23/2019 metroNIDAZOLE (FLAGYL) 500 MG tabletIndications:Acute diverticulitis Take 1 tablet by mouth 3 times daily for 10 days 30 tablet 09/30/2019 12/23/2019 documented as of this encounter ED Notes * Bertha Dean RN - 11/18/2019 10:16 AM CST Discharge instructions discussed per Chris RAMESH. Pt ambulatory to exit with steady gait TRICAL WIRER * Chris Baker RN - 11/18/2019 9:55 AM CST Rivera with Risk returned call to this RN, per Rivera if patient is to be medicated with alprazolam patient will need to stay for the appropriate amount of time. AMIRA Ghotra updated on situation. Patient also requesting to speak to doctor again because he does not think his insurance will coveralprazolam XR. TRICAL WIRER * Chris Baker RN - 11/18/2019 9:47 AM CST Zenaida Day Sup contacted regarding patient medication and discharge, she was unsure of policy, Risk paged. TRICAL WIRER * Chris Baker RN - 11/18/2019 9:39 AM CST Pharmacy contacted regarding patient medication, pharmacy stated peak time is 1- 2 hours and if patient has had this medication previously it should be fine to medicate patient and discharge patient. Buzz informed that this RN is not comfortable medicated patient with this type of medication and discharging from the waiting room. TRICAL WIRER * Chris Baker RN - 11/18/2019 9:32 AM CST Patient updated on plan of care. TRICAL WIRER * Bertha Dean RN - 11/18/2019 9:08 AM CST Pt states out of prescribed xanax, pt states not able to get an appointment until 12/11. Pt states was told to come to ED per PCP. Pt states has been to multiple ER's in the past few days. Pt states he does not feel like himself and feels jittery . Pt denies any SI/HI LYN * Silvio Ghotra PA-C - 11/18/2019 8:58 AM CST [facility] HPI CC: Anxiety (Pt states no appt until 3/31, pt states out of medications. Pt states out of xanax, having bad withdrawls. Pt seen at [facility] ER today. Pt denies SI/HI. Pt c/o feeling jittery and not like himself ) , HPI: Carlos Mcgee is a 49 year old male who presents to ED with complaints of Xanax withdrawal.Pt notes he was fired by his psychiatrist last month, was being prescribed 2mg alprazolam 5 times aday for anxiety. Pt notes he has an appointment December 11 with different psychiatrist, but has runout of his xanax. Pt has been seen numerous times in the ED for same this is the patients 3rd ER visit today for the same complaint. On chart review the patient was offered admission for benzo detox and refused this. The patient is reporting feeling jittery, and anxiety and diarrhea. Denies SI/HI Medical History ? Past Medical History: has a past medical history of Abdominal pain, acute (02/02/2013), Allergic rhinitis (03/12/2017), Anxiety state (01/08/2015), Arthritis (02/13/2019), Asthma (02/13/2019), Benign neoplasm of colon (02/13/2019), Benzodiazepine dependence (03/12/2017), Blurry vision, bilateral (08/28/2014), Cervical stenosis of spinal canal (08/28/2014), Chest pain (01/01/2008), Colitis (02/02/2013), Costochondral chest pain (08/28/2014), Diverticulitis, Diverticulitis of colon (09/11/2013), Diverticulosis of the colon, Dizziness (12/05/2009), Essential hypertension (03/12/2017), Gastroesophageal reflux disease (06/13/2009), GERD (gastroesophageal reflux disease), Headache (07/05/2012), History of cardiac cath (2018), Microcytic anemia (07/02/2015), Nausea (08/16/2017), Neck pain (01/08/2015), Obesity (BMI 30-39.9) (03/12/2017), Other acute recurrent sinusitis (05/10/2018), Panic attack (01/03/2010), Panic attacks, Paresthesias with subjective weakness (08/28/2014), PTSD (post-traumatic stress disorder) (08/28/2014), Recurrent major depressive disorder, in partial remission (03/12/2017), Sedative, hypnotic or anxiolytic abuse, 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 Negative unless noted above Past Surgical History: has a past surgical history that includes cholecystectomy. Negative unless noted above Med List: No current facility-administered medications on file prior to encounter. Current Outpatient Medications on File Prior to Encounter Medication Sig Dispense Refill ??? albuterol HFA (PROVENTIL;VENTOLIN;PROAIR) 108 (90 Base) MCG/ACT inhaler INL 1 TO 2 PFS PO Q 4 HPRF SOB 1 Inhaler 11 ??? alfuzosin CR 24hr (UROXATRAL) 10 MG tablet Take 1 tablet by mouth once daily 30 tablet 3 ??? ALPRAZolam (XANAX) 2 MG tablet TK 1 T PO QID ??? atenolol (TENORMIN) 100 MG tablet Take 1 tablet by mouth once daily 30 tablet 5 ??? cyclobenzaprine (FLEXERIL) 10 MG tablet Take 10 mg by mouth 3 times daily as needed ??? fluticasone propionate (FLONASE) 50 MCG/ACT nasal spray Dietrich 2 sprays into each nostril once daily 15.8 g 11 ??? hyoscyamine 0.125 MG tablet Take 1 tablet by mouth every 4 hours as needed for Spasms 30 tablet0 ??? ipratropium (ATROVENT) 0.06 % nasal spray Dietrich 2 sprays into each nostril 3 times daily 15 mL 0 ??? omeprazole (PRILOSEC) 20 MG capsule Take 1 capsule by mouth once daily 30 capsule 0 ??? promethazine (PHENERGAN) 25 MG tablet Take 1 tablet by mouth every 6 hours as needed for Nausea/Vomiting 20 tablet 0 ??? simethicone (GAS-X) 80 MG chew tablet Take 80 mg by mouth ??? sucralfate (CARAFATE) 1 GM tablet TK 1 T QID 0 Med list reviewed and attached to chart Allergies: Allergies Allergen Reactions ??? Contrast-Iodinated Agents For Ct/Other ??? Lidocaine Rash and Swelling ??? Metformin Other Chest pain ??? Paxil [Paroxetine] ??? Percocet [Oxycodone-Acetaminophen] Palpitations and Other Pt reports that he breaks out into a sweat ??? Sulfa Drugs ??? Losartan Angioedema Swollen lips ??? Glimepiride Urticaria ??? Bactrim Ds Rash ??? Levaquin Hallucinations Immunizations: Immunization History Administered Date(s) Administered ??? TD 09/13/2011 Not applicable unless noted above Family Hx: Family History Problem Relation Name Age of Onset ??? Stroke Father ??? Alcohol abuse Father ??? Cirrhosis Mother ??? Bipolar Disorder Mother ??? Depression Mother Negative unless noted above Social Hx: Social History Socioeconomic History ??? Marital status: [...] on file Social History Narrative Lives alone History source:Patient, nursing notes, and EMS notes when applicable, unless noted above Hx/PE/ROS limited by:none ? Review of Systems Constitutional: No fevers or chills, recent illness, change in medications, or unintentional wt loss. Eye/ENT/Mouth: No visual changes, no epistaxis or sore throat Cardiovascular: No palpitations, no chest pain Respiratory: No stridor, no shortness of breath, no cough Gastrointestinal: No nausea, no vomiting, no diarrhea, no abdominal pain Genitourinary: No dysuria, no hematuria Skin: No acute rashes or edema Musculoskeletal: No acute joint swelling, no calf pain, no decreased range of motion Neurological: No headache, no new numbness Psychiatric: No mood changes See HPI for further details. All systems negative except as marked. Physical Exam Constitutional: well developed, well nourished, no acute distress Eye: normal conjunctiva, pupils equal and reactive, EOMI ENT/Mouth: external ears clear, no swelling or exudates to oral pharynx CV: regular rate and rhythm, no murmurs/rubs or gallops Respiratory: clear to auscultation bilaterally no wheezes/rhonchi/crackles GI: abdomen: soft nondistended, non ridged, nontender x 4 quadrants, bowel sounds present, no organomegaly or palpable masses Skin: dry, no rashes noted Musculoskeletal/Back: no ttp x 4 ext, back nontender midline, flank non tender Extremities: No cyanosis, no edema. DP pulses 2+ bilateral Neurological: No gross neurological motor or sensory deficits, upper and lower extremity strength 5/5 bilateral, CN II-XII intact Psych: Pt is alert and oriented x3 w good recall and normal affect Studies and Results VS: Patient Vitals for the past 24 hrs: Temp Pulse Resp BP SpO2 11/18/19 0851 97.5 ??F (36.4 ??C) 68 18 163/92 100 % Vitals reviewed: WNL Pulse Ox Interpretation: Saturation: 100 Oxygen Delivery: Room air Interpretation: No hypoxia at this time. Rhythm strip interpretation: Normal sinus rhythm, no arrhythmia noted. Ventricular rate (bpm):68 Pertinent Labs: Labs Reviewed - No data to display Images: No orders to display All imaging independently reviewed by Silvio Ghotra PA-C. Medical Decision Making Differential Dx: DDx includes: benzodiazapine dependence Management: See ED course. Case discussed with ED attending/ED MARY: Data reviewed: All current, pertinent and timely studies (laboratory, imaging, and procedures) wereordered and results reviewed by Silvio Ghotra PA-C unless otherwise noted. Triage notes and available nursing notes reviewed. Previous medical record reviewed when available. Repeat vital signs reviewed. PCP: Radha Palafox APRN-V BELT MOLD ASSEMBLER AND CURER Plan:, labs, imaging, symptom control, consult Medications administered in triage: ED Course The patient presents to the emergency department with request for medication refill of 2mg of alprazolam 5 times a day. -the patient is hemodynamically stable, with normal vitals without fever, tachycardia or hypoxia -on physical exam the patient is found to have benign exam, no acute distress - discussed with the patient the need for controlled benzodiazepine withdrawal and detox. The patient is very argumentative and frequently redirects the conversation to the fault of his previous psychiatrist. Recommended to the patient to Go directly to [facility] for intake into the opiate and benzodiazepine inpatient detox, to be safely weaned off of his alprazolam. I discussed with the patient that his behavior is suggestive of addiction and drug seeking behavior, pt was given numerous out patient psychiatric resources - pt given 1mg alprazolam in ED will DC with 3 tablets . - recommended to the patient to go directly to [facility] for evaluation for intake to their detoz program, the patient replied there is no way i'm going to [facility] I have spent considerable time counseling the patient on the nature of their pain/symptoms, their results, what to expect and how to manage their symptoms. I have also given my typical strict return precautions and let them know that are always welcome to call or return to the ED if their symptoms are not improving or they develop new or progressive symptoms. I ensured understanding of the instructions utilizing teach-back. All questions and concerns presented at the time of discharge were answered. ? Dispo:home Clinical Impression: 1. Benzodiazapine dependance 2. Drug seeking behavior Note: This note was created with the aid of dictation software, thus there may be some word substitutions or errors. ? documented in this encounter Plan of Treatment Not on file documented as of this encounter Visit Diagnoses Diagnosis Benzodiazepine dependence, continuous (HCC) Sedative, hypnotic or anxiolytic dependence, continuous Drug-seeking behavior Other, mixed, or unspecified nondependent drug abuse, unspecified documented in this encounter Active and Recently Administered Medications
--- OUTSIDE RECORDS SUMMARY | 2024-09-10 03:44 | XMS_ITS | Encounter Summary ---
Author Organization [facility] Address [address] [place] [address] Care Team Providers Care Manager Account Management Name Role Phone Unavailable Primary Care Provider Unavailabl e Encounter Details Date Type Department Care Team (Latest Contact Info) Description 11/09/2019 2:37 PM COMMERCIAL CENTER MANAGER - 11/09/2019 11:59 PM [facility] Hospital Encounter [facility] [address] [place] [address] Regina Lara, TERRITORY SALES MANAGER-SUBSTANCE ABUSE COUNSELOR [address] [place] [phone] Discharge Disposition: Home or Self Care Social [...] on file documented as of this encounter Medications at Time of Discharge Medication Sig Dispensed Refills Start Date End Date albuterol HFA (PROVENTIL;VENTOLIN;PROA IR) 108 (90 Base) MCG/ACT inhaler INL 1 TO 2 PFS PO Q 4 H PRF SOB 1 Inhaler 11 08/01/2019 alfuzosin CR 24hr (UROXATRAL) 10 MG tablet Take 1 tablet by mouth once daily 30 tablet 3 11/09/2019 cyclobenzaprine (FLEXERIL) 10 MG tablet Take 10 mg by mouth 3 times daily as needed 10/06/2019 fluticasone propionate (FLONASE) 50 MCG/ACT nasal spray [place] 2 sprays into each nostril once daily 15.8 g 11 08/01/2019 hyoscyamine 0.125 MG tabletIndications:Acute diverticulitis Take 1 tablet by mouth every 4 hours as needed for Spasms 30 tablet 09/30/2019 ipratropium (ATROVENT) 0.06 % nasal spray [place] 2 sprays into each nostril 3 times daily 15 mL 10/28/2019 promethazine (PHENERGAN) 25 MG tabletIndications:Acute diverticulitis Take 1 tablet by mouth every 6 hours as needed for Nausea/Vomiting 20 tablet 10/20/2019 simethicone (GAS-X) 80 MG chew tablet Take 80 mg by mouth sucralfate (CARAFATE) 1 GM tablet TK 1 T QID 0 05/14/2019 ALPRAZolam (XANAX) 2 MG tablet TK 1 T PO QID 11/06/2019 11/18/2019 atenolol (TENORMIN) 100 MG tablet Take 1 tablet by mouth once daily 30 tablet 5 08/01/2019 12/26/2019 ciprofloxacin (CIPRO) 500 MG tabletIndications:Acute diverticulitis Take 1 tablet by mouth 2 times daily for 10 days 20 tablet 09/30/2019 12/23/2019 metroNIDAZOLE (FLAGYL) 500 MG tabletIndications:Acute diverticulitis Take 1 tablet by mouth 3 times daily for 10 days 30 tablet 09/30/2019 12/23/2019 omeprazole (PRILOSEC) 40 MG capsule Take 1 capsule by mouth daily before breakfast 30 capsule 6 08/01/2019 11/15/2019 documented as of this encounter Plan of Treatment Not on file documented as of this encounter Procedures Procedure Name Priority Date/Time Associated Diagnosis Comments CULTURE URINE Routine 11/09/2019 2:41 PM COMMERCIAL CENTER MANAGER Lower urinary tract symptoms (LUTS) documented in this encounter Results * CULTURE URINE (11/09/2019 2:41 PM COMMERCIAL CENTER MANAGER) Culture Urine No growth (<100 CFU/mL) KATIE 11/11/2019 7:21 AM COMMERCIAL CENTER MANAGER [facility] Urine URINE SPECIMEN OBTAINED BY CLEAN CATCH PROCEDURE / Unknown Collection / Unknown 11/09/2019 2:41 PM COMMERCIAL CENTER MANAGER 11/09/2019 2:56 PM COMMERCIAL CENTER MANAGER Regina Lara APRN-SUBSTANCE ABUSE COUNSELOR LAB - MICROBIOLO GY ORDERABLES [facility] [address] [place] [address], [facility] [phone] documented in this encounter Visit Diagnoses Diagnosis Potential exposure to STD- Primary Other specified personal history presenting hazards to health Lower urinary tract symptoms (LUTS) Other symptoms involving urinary system documented in this encounter
--- OUTSIDE RECORDS SUMMARY | 2024-09-10 03:44 | XMS_ITS | Encounter Summary ---
Author Organization [facility] Address [address] [facility] [address] Care Team Providers Care Teradata Solution Architect Name Role Phone Unavailable Primary Care Provider Unavailabl e Reason for Visit * Reason Onset Date Comments Follow-up 11/10/2019 Encounter Details Date Type Department Care Team (Late st Contact Info) Description 11/10/2019 Telephone [facility] [address] [place], [place] [id number] Regina Lara APRN-CNP [address] [place] [address] Follow-up Social History Tobacco Use Types Packs/Day Years [...] encounter Miscellaneous Notes * Telephone Encounter - Regina Lara APRN-CNP - 11/10/2019 10:04 AM SENIOR BOOKKEEPER Returned pt's phone call. He wanted to inform me that he had a couple of incidents of pink tinged seminal fluid- Explained to pt that this is almost always benign and self- limiting, but his work up with hematuria will also be sufficient for this complaint. Pt then asked if it was OK to not use condoms with his partner that he is monogamous with. Explained that if he and his partner are both monogamous then OK to engage in unprotected sex if they mutually agree on this. Also has continued to feel dizzy and anxious- explained that this is not associated with a urologiccondition based off of my exam yesterday and he should follow up with PCP or seek treatment at ER as he is likely having some withdrawal from alprazolam. Explained that I am more then happy to answer questions that are associated with urology but he needs to refer to calling his PCP with general health questions. Pt proceeded to tell me that he smashed his thumb this morning and it is now throbbing. Recommend that he put ice on it but if he has further concerns to again call his PCP or go to a urgent care. MELISA Lugo 11/10/2019 10:17 AM OR BOOKKEEPER documented in this encounter Plan of Treatment Not on file documented as of this encounter Visit Diagnoses Not on filedocumented in this encounter
--- OUTSIDE RECORDS SUMMARY | 2024-09-10 03:44 | XMS_ITS | Encounter Summary ---
Author Organization [facility] Address [address] [facility] [place] [address] Care Team Providers Care Steam Press Tender Name Role Phone Unavailable Primary Care Provider Unavailabl e Reason for Visit * Reason Onset Date Comments General 11/14/2019 Follow-up 11/15/2019 pt providing an update Encounter Details Date Type Department Care Team (Late st Contact Info) Description 11/14/2019 Telephone [facility] [address] [facility] [address] [place] [address] Radha Palafox, LEAD MECHANIC-PIECE MEAT TRIMMER [address] OF [facility] [place] [phone] General; Follow-up (pt providing an update ) Social History Tobacco Use Types Packs/Day Years [...] encounter Miscellaneous Notes * Telephone Encounter - Toña Yeung - 11/15/2019 12:49 PM CST Patient states that he was in the ER last night and is competely out of medication ?? Went wand patient was escorted patient was given the option to leave or be escorted out and patientstates he opted to be escorted out of the ER. ?? Rinforce multiple message from and VENTURA Palafox in regards to Not prescribing medication and being seen in the ED. ?? Also reinforced to patient the need to establish care with new psych provider.? Patient is scheduled on 12-12-2019 at am no record of appointment in [facility]. Patient states that RN GYN Vivienne notified him of this appointment date and time. Note copied to all 4 encounter for the same request. ER FEEDER * Telephone Encounter - Toña Yeung - 11/15/2019 7:42 AM CST Patient called in this morning requesting number to [facility] attempted to contact the psych department to warm transfer and no one is aviliable per message until 8 am. Notified patient and provided patient with direct number and patient disconnected the call. [phone] ER FEEDER * Telephone Encounter - [place] Raza MD - 11/14/2019 6:09 PM CST The medication will not be prescribed. The treatment of his psychiatric conditions has been under the management of a psychiatrist. He has been advised to seek care through an emergency room if he develops symptoms related to his previous treatment. ER FEEDER * Telephone Encounter - Corinna Patterson RN - 11/14/2019 4:29 PM HOPPER FEEDER Pt calling stating that psychiatry contacted the pt and that he is scheduled for 12/12/19 at 8am. Ptrequesting a refill of the alprazolam to get him through until the pt gets into psychiatry. Please advise. ER FEEDER * Telephone Encounter - Zara Gusman RN - 11/14/2019 3:42 PM HOPPER FEEDER Carlos, this patient, is calling to apprise Dr Raza that he has been on Alprazolam for the past 22 years and patient is fearful of going into withdrawals, that his psychiatrist is refusing to follow him anymore, and patient is more than willing to see a psychiatrist here at [facility] if and when there is an opening, however, private psychiatrists are $300 for first session and patient does not have the means. Patient would be willing to sign a contract, and do whatever Dr. Raza and psychiatrists will want him to do, but he does not want to go into withdrawal and would be willing to take Xanax 1 mg 3 times per day just to keep him from withdrawal, and will not use subterfuge or ED hopping to get medicine. He begs understanding, and will only get his medication at [facility] in [place], [place] [phone]. Patient is also with a Urologist at [facility], and soon to be with a Neurologist at [facility], and wishes to have care only with this facility. Patient request Dr. Raza to have any parameter so that patient can have continuity of care. Please call patient: [phone]. Note: Patient is completely out of his medication today. ER FEEDER documented in this encounter Plan of Treatment Not on file documented as of this encounter Visit Diagnoses Not on filedocumented in this encounter
--- OUTSIDE RECORDS SUMMARY | 2024-09-10 03:44 | XMS_ITS | Encounter Summary ---
Author Organization [facility] Address [address] [place] [address] Care Team Providers Care Aquatic Director Name Role Phone Unavailable Primary Care Provider Unavailabl e Reason for Visit * Reason Onset Date Comments MEDICATION REFILL 12/04/2019 Encounter Details Date Type Department Care Team (Late st Contact Info) Description 12/04/2019 Refill [facility] [address] [facility] [address] [place] [address] Radha Palafox, INSURANCE AGENCY SALES MANAGER-CASE SUPERVISOR [address] OF [facility] [place] [phone] MEDICATION REFILL Social History Tobacco Use Types [...] encounter Miscellaneous Notes * Telephone Encounter - Zara Gusman RN - 12/04/2019 8:50 AM CDT Patient calling in stating that the Hydralazine 25 mg PO TID that was apparently prescribed by Dr. Raza, but patient is stating that it makes his chest hurt and asks that something else be prescribed. Tried to support that patient has been released from practice, but he states that Dr. Raza is now his PCP, and that Dr. Raza was taking call over the weekend and prescribed for this patient. Pleasecall patient with decision of care. Please call patient: [phone] Refill Request Carlos Mcgee CRISTELA: 11/16/2019 NOV due: none NOV scheduled: none Allergies: Allergies Allergen Reactions ??? Cephalexin Shortness [...] Other hallucinaton Pended Medication Order: Requested Prescriptions No prescriptions requested or ordered in this encounter documented in this encounter Plan of Treatment Not on file documented as of this encounter Visit Diagnoses Not on filedocumented in this encounter
--- OUTSIDE RECORDS SUMMARY | 2024-09-10 03:44 | XMS_ITS | Encounter Summary ---
Author Organization [facility] Address [address] [facility] [place] [address] Care Team Providers Care Computer Systems Designer Name Role Phone Unavailable Primary Care Provider Unavailabl e Reason for Visit * Reason Onset Date Comments Headache 12/11/2019 Encounter Details Date Type Department Care Team (Late st Contact Info) Description 12/11/2019 Telephone [facility] [address] [place] [address] Radha Palafox APRN-CNP [address] OF [facility] [place] [phone] Headache Social History Tobacco Use Types Packs/Day Years [...] Telephone Encounter - Radha Palafox APRN-CNP - 12/11/2019 4:26 PM CDT Long conversation with Mr Mcgee about his BP. 170/106 earlier today. Discussed all the medications we have tried him on and claims can not take any of them due to various side effects. He feels his BP is up due to his anxiety and being off of his Alprazolam and wants someone to orderthis for him. Feels it is very unfair to him that we will not order it for him. Told him again that we could not order this for him. He is unable to get a psych appt or get a new patient appt with anyone at this time due to COVID-19virus. BP--Wanted to order Trandolapril (although claims Lisinopril caused him to have chest pains). He does not want this or anything else due to Alprazolam would lower BP and if we don't agree to order this, there is nothing else we can do.. He is very unhappy about situation.. MELISA Diaz * Telephone Encounter - Umm Erickson RN - 12/11/2019 2:26 PM CDT Patient states water pill is not helping; blood pressure is actually higher; having headaches everyday; does have sinus infection active; Covid-19 test is negative; headaches last 7-8 hours--takes tylenol or excedrine tension headache; current BP 166/100; unwilling to go to ED--believes will be told to contact PCP; still trying to find psychiatrist; Best call back number to reach patient: [phone] documented in this encounter Plan of Treatment Not on file documented as of this encounter Visit Diagnoses Not on filedocumented in this encounter
--- OUTSIDE RECORDS SUMMARY | 2024-09-10 03:44 | XMS_ITS | Encounter Summary ---
Author Organization [facility] Address [address] [place] [address] Care Team Providers Care Room Service Bellhop Name Role Phone Unavailable Primary Care Provider Unavailabl e Reason for Visit * Reason Comments MEDICATION REFILL Patient states he vidales s taken Alprazolam x 23 years, and ran out yesterday. States he has talked to his PCP, states She won't prescribe any for me because she is a nurse practitioner. Was seen @ OSH also ehsan and was not given a script. Encounter Details Date Type Department Care Team (Late st Contact Info) Description 11/15/2019 5:20 AM RESIN COATER - 11/15/2019 6:23 AM RESIN COATER Emergency [facility] EMERGENCY DEPARTMENT [address] [place] [address] Encounter for medication refill Discharge Disposition: Home [...] Sign Reading Time Taken Comments Blood Pressure 169/84 11/15/2019 5:22 AM RESIN COATER Pulse 67 11/15/2019 5:22 AM RESIN COATER Temperature 36.7 ??C (98 ??F) 11/15/2019 5:22 AM RESIN COATER Respiratory Rate 16 11/15/2019 5:22 AM RESIN COATER Oxygen Saturation 100% 11/15/2019 5:22 AM RESIN COATER Inhaled Oxygen Concentration - - Weight 120.2 kg (265 lb) 11/15/2019 5:22 AM RESIN COATER Height 188 cm (6' 2 ) 11/15/2019 5:22 AM RESIN COATER Body Mass Index 34.02 11/15/2019 5:22 AM RESIN COATER documented in this encounter Discharge Instructions * Attachments The following attachments cannot be sent through Care Everywhere. * Medicine Refill (AfterCare(R) Instructions(ER/ED)) (Moldovan) documented in this encounter Medications at Time [...] fluticasone propionate (FLONASE) 50 MCG/ACT nasal spray Villard 2 sprays into each nostril once daily 15.8 g 11 08/01/2019 hyoscyamine 0.125 MG tabletIndications:Acute diverticulitis Take 1 tablet by mouth every 4 hours as needed for Spasms 30 tablet 09/30/2019 ipratropium (ATROVENT) 0.06 % nasal spray Villard 2 sprays into each nostril 3 times [...] as of this encounter ED Notes * Regina Gomez, RN - 11/15/2019 6:21 AM CST Pt refusing to listen to d/c and follow-up. Wants to speak to charge manager. drywall contractor with pt speakingabout d/c and follow-up. Pt refusing to leave. Security to SWAT to escort pt outside. Ambulated to lobby with a steady gait. N COATER * Ayesha Melton, NYA-TESTING MACHINE OPERATOR - 11/15/2019 5:57 AM CST [place] [id number] [facility] EMERGENCY DEPARTMENT History Chief Complaint Patient presents with ??? MEDICATION REFILL Patient states he has taken Alprazolam x 23 years, and ran out yesterday. States he has talked to his PCP, states She won't prescribe any for me because she is a nurse practitioner. Was seen @ OSH also [facility] and was not given a script. Patient requesting refill for Ativan. States has appointment on the of this month. States he feels as if he is withdrawing and needs to get medication. History provided by: Patient throw out clerk used: No MEDICATION REFILL Medications/supplies requested: Ativan Reason for request: Medications ran out Patient has complete original prescription information: no Source of information: Patient reported - no other verification available Past Medical History: Diagnosis Date ??? Abdominal [...] 03/12/2017 Scheduled appointment with psychiatric, April 01, [facility] in [place]. ??? Sedative, hypnotic or anxiolytic abuse, continuous [...] file Gets together: Not on file Attends gnosticism service: Not on file Active member of [...] History Narrative Lives alone Review of Systems Review of Systems Constitutional: Negative. Negative for chills and fever. HENT: Negative. Negative for hearing loss, nosebleeds, sinus pain and sore throat. Eyes: Negative. Negative for pain, discharge and redness. Respiratory: Negative for cough, shortness of breath, wheezing and stridor. Cardiovascular: Negative. Negative for chest pain, palpitations and leg swelling. Gastrointestinal: Negative. Negative for abdominal pain, constipation, diarrhea, nausea and vomiting. Genitourinary: Negative. Negative for dysuria, hematuria and urgency. Musculoskeletal: Negative. Negative for back pain, joint pain and neck pain. Skin: Negative. Negative for itching and rash. Neurological: Negative. Negative for seizures, loss of consciousness, weakness and headaches. Endo/Heme/Allergies: Negative. Psychiatric/Behavioral: Negative. Negative for depression and suicidal ideas. The patient is not nervous/anxious. Physical Exam BP 169/84 Pulse 67 Temp 98 ??F (36.7 ??C) Resp 16 Ht 1.88 m (6' 2 ) Wt 120.2 kg (265 lb) SpO2 100% BMI 34.02 kg/m?? Physical Exam Vitals signs and nursing note reviewed. Constitutional: General: He is not in acute distress. Appearance: Normal appearance. He is well-developed and normal weight. HENT: Head: Normocephalic. Right Ear: External ear normal. Left Ear: External ear normal. Nose: Nose normal. No congestion or rhinorrhea. Mouth/Throat: Mouth: Mucous membranes are moist. Pharynx: Oropharynx is clear. No oropharyngeal exudate. Eyes: Conjunctiva/sclera: Conjunctivae normal. Pupils: Pupils are equal, round, and reactive to light. Neck: Musculoskeletal: Normal range of motion and neck supple. Cardiovascular: Rate and Rhythm: Normal rate and regular rhythm. Pulses: Normal pulses. Heart sounds: Normal heart sounds. No murmur. Pulmonary: Effort: Pulmonary effort is normal. No respiratory distress. Breath sounds: Normal breath sounds. No wheezing. Abdominal: General: Bowel sounds are normal. There is no distension. Palpations: Abdomen is soft. Tenderness: There is no abdominal tenderness. Musculoskeletal: Normal range of motion. General: No swelling, tenderness or deformity. Skin: General: Skin is warm and dry. Capillary Refill: Capillary refill takes less than 2 seconds. Neurological: General: No focal deficit present. Mental Status: He is alert and oriented to person, place, and time. Cranial Nerves: No cranial nerve deficit. Motor: No weakness. Deep Tendon Reflexes: Reflexes are normal and symmetric. Psychiatric: Mood and Affect: Mood normal. Behavior: Behavior normal. Thought Content: Thought content normal. Judgment: Judgment normal. Medications Current Outpatient Medications Medication Sig Dispense [...] fluticasone propionate (FLONASE) 50 MCG/ACT nasal spray Villard 2 sprays into each nostril once daily 15.8 g 11 ??? hyoscyamine 0.125 MG tablet Take 1 tablet by mouth every 4 hours as needed for Spasms 30 tablet0 ??? ipratropium (ATROVENT) 0.06 % nasal spray Villard 2 sprays into each nostril 3 times [...] GM tablet TK 1 T QID 0 Procedures Procedures Lab/SPO2 Interpretation No results found for this visit on 11/15/19. No orders to display Progress Notes Patient pleaded to have additional refill of Ativan. States has appointment with psychiatrist on 12/11. Copied and pasted from note in Epic 11/11: Review of medication dispense history in [facility] shows: Patient had Xanax 10 tabs filled on 10/18/2019; 50 tabs filled on 10/20/2019; 16 tabs filled on 11/06/2019; 5 tabs filled on 11/09/2019. Patient spoke with Dr Sierra, after Speaking with Dr Sierra, he again asked this practitioner to understand his dilemma, explained Dr Sierra's offer to assist patient with detox by admitting and monitoring. Patient refused this again. Patient requested to speak with additional staff member who was not me or Dr Sierra, spoke with charge manager, [place]. Patient pleading again and explaining that he does not require admission, just a scriptfor Ativan. Patient was discharged and escorted out by security. ED Course Clinical Impressions as of Nov 14 622 Encounter for medication refill Medical Decision Making I have reviewed the: Nursing Notes, Vitals. Orders Placed This Encounter ??? DISCONTD: ALPRAZolam (XANAX) tablet 1 mg Follow-up Information Follow-up With Details Why Contact Info Radha Palafox APRN-TESTING MACHINE OPERATOR Call today [phone] [address] User Date/Time Ayesha Melton APRN-TESTING MACHINE OPERATOR Wed Nov 15, 2019 5:57 AM N COATER Associated attestation - Barbara Sierra MD - 11/15/2019 6:40 AM RESIN COATER 11/15/2019 06:28 For this patient encounter, I reviewed the VP PRODUCT MARKETING or PA documentation, procedures (if done), treatment plan, and medical decision making; and I had oiju-gy-yeal time with this patient. MDM: Patient endorses history of Xanax use, reportedly previously prescribed by psychiatrist, dose of 2mg po five times a day. Was prescribed 150 tabs by his psychiatrist, most recently in Sep 2019. In the interim, states that his psychiatrist got into legal trouble and he no longer has access to Xanax. PCP reportedly told him to go to the ED if he felt he was experiencing withdrawal. Review of [facility] ADVANCED RESEARCH PROGRAMS DIRECTOR shows: - 5 tabs of Xanax prescribed 11/09/[address] Hill - 16 tabs of Xanax prescribed 11/06/[address] Jaimes - 50 tabs of Xanax prescribed 10/20/19, 10 tabs of Xanax prescribed 10/18/19, 150 tabs prescribed 09/20/19, 08/23/19, 07/26/19, 06/27/19, 05/30/19, 05/02/19, all by same prescriber (Greyson Easley) - previously mix of prescribers from mix of locations. Of note, he had just left another ER at 3am today prior to his presentation at [facility] ED; the ED physician there had declined to prescribe Xanax. I discussed with the patient that I was sympathetic to the potential of going through benzodiazepine withdrawal, as his prescribing/consumption pattern would place him at high risk of physiologic dependence. I offered him admission to the medicine or psychiatry service to wean him from benzodiazpines. I specifically discussed with him that though he may have been prescribed high doses of benzodiazepines in the past, this was inconsistent with current standards of care for treatment of anxiety. I expected his future psychiatrist to attempt to wean him from benzodiazepines. Patient declined admission or psychiatry evaluation. He attempted to negotiate with me multiple times throughout his interview to obtain a benzodiazpine prescription. He also became verbally aggressive, stating that he needed to work to live and that I was not providing adequate care. Ultimately hewas discharged without new prescriptions. documented in this encounter Plan of Treatment Not on file documented as of this encounter Visit Diagnoses Diagnosis Encounter for medication refill Issue of repeat prescriptions Anxiety disorder, unspecified type documented in this encounter Active and Recently Administered Medications
--- OUTSIDE RECORDS SUMMARY | 2024-09-10 03:44 | XMS_ITS | Encounter Summary ---
Author Organization [facility] Address [address] [address] Care Team Providers Care Compensation Consultant Name Role Phone Unavailable Primary Care Provider Unavailabl e Reason for Visit * Reason Onset Date Comments Headache 12/12/2019 Dizziness 12/12/2019 Encounter Details Date Type Department Care Team (Late st Contact Info) Description 12/12/2019 Telephone [facility] [address] [facility] [address] [place] [address] Radha Palafox APRN-CNP [address] OF [facility] [place] [id number] Headache; Dizziness Social History Tobacco Use Types Packs/Day Years [...] Telephone Encounter - Radha Palafox APRN-CNP - 12/12/2019 12:15 PM CDT Called patient and he was pleasant and not agrees to start new medication for his BP. Agrees to tryTrandolapril 2 mg daily. He complained of chest pains with Lisinopril and he is aware that this is in same class of medication. MELISA Cuellar * Telephone Encounter - Zara Gusman RN - 12/12/2019 10:30 AM CDT Patient is calling again to lament his condition, the ineptitude of his PCP, finding fault with everyone, stating that Dr. Massey was just sued by him for malpractice, patient is argumentative,vacillates between being cordial, insulting, sarcastic, arrogant, and needy. States that his BP 166/100 P. 75, has a headache, is dizzy, sinus runny nose, continues to drug seek, and self prescribe, seems to like to prescribe for himself and ridicule any provider's attempt to help him. * Telephone Encounter - Jaskaran Wilson - 12/12/2019 10:23 AM CDT Called patient and when I went to schedule a virtual visit received a hard stop indicating the patient relationship with the practice. Patient is demanding medication and an appt. Informed patient that at this time Deena Palafox will refill any medication request that patient has and as far as visits or concern patient should start search for a new provider and in the meantime we will address medical issues accordingly. Patient wasn't pleased with this feedback and suggested we contact his [facility] provider and ask him how he's beingsued for not providing him care. I politely informed the patient that someone above me will call him back and address any concerns. Please advise * Telephone Encounter - Mallory Flores RN - 12/12/2019 9:49 AM CDT Patient calling again about below message please call Dizzy and lightheaded [phone]. Call to escalation to inform ?? * Telephone Encounter - Umm Erickson RN - 12/12/2019 8:04 AM CDT Patient calling requesting another call back; noted his PCP did return his call yesterday which he acknowledged but states still having headache and would like something to treat; states he went to an urgent care center yesterday and was told to contact his PCP; Best call back number to reach patient: [phone]. documented in this encounter Plan of Treatment Not on file documented as of this encounter Visit Diagnoses Not on filedocumented in this encounter
--- OUTSIDE RECORDS SUMMARY | 2024-09-10 03:44 | XMS_ITS | Encounter Summary ---
Author Organization [facility] Address [address] [place] [address] Care Team Providers Care Hand Edger Name Role Phone Unavailable Primary Care Provider Unavailabl e Reason for Visit * Reason Onset Date Comments General 11/14/2019 Medication Issue 11/14/2019 notified of mes jeff and patient disconnected call Med Question 11/15/2019 Encounter Details Date Type Department Care Team ([facility] st Contact Info) Description 11/14/2019 Telephone [facility] [address] [facility] [address] [place] [address] Radha Palafox, SHIP KEEPER-[facility] [address] DIV OF [facility] [place] [id number] General; Medication Issue (notified of message and patient disconnected call ); Med Question Social History Tobacco Use Types Packs/Day [...] Telephone Encounter - Toña Yeung - 11/15/2019 12:46 PM CST Patient states that he was in the ER last night and is competely out of medication Went wand patient was escorted patient was given the option to leave or be escorted out and patientstates he opted to be escorted out of the ER. Rinforce multiple message from and VENTURA Palafox in regards to Not prescribing medication and being seen in the ED. Also reinforced to patient the need to establish care with new psych provider. Patient is scheduled on 12-12-2019 at am no record of appointment in [facility]. Patient reports he is having withdrawal symptoms RN advised patient to be seen in ED per previous provider recommendations. Patient declined at this time and states he attempted to go to the ER and was asked to leave. ?? Patient denies any thought of harming himself or anyone else at this time. ?? If anything new develops,if anything gets worse or if you become increasingly concerned for any reason, please seek out immediate medical Attention. ?? AL WORKER PALLIATIVE CARE * Telephone Encounter - Toña Yeung - 11/15/2019 7:45 AM CST Patient called in this morning requesting number to [facility] attempted to contact the psych department to warm transfer and no one is aviliable per message until 8 am. Notified patient and provided patient with direct number and patient disconnected the call. [phone] AL WORKER PALLIATIVE CARE * Telephone Encounter - Radha Palafox APRN-CNP - 11/14/2019 6:24 PM SOCIAL WORKER PALLIATIVE CARE Called him back and told him that we would not be ordering Alprazolam for him. Told him we could order Buspar for him. He claims side effects to Buspar, Lorazepam, Clonazepam and Diazepam Upset. Wants to know what he will do when he goes into withdrawal. Told him if he thought he was going into withdrawal he would need to go to ER. Would not quit talking about need for Alprazolam. Told him I was ending call since there was nothing further I could do for him. He told me I was fired. MELISA Diaz AL WORKER PALLIATIVE CARE * Telephone Encounter - Toña Yeung - 11/14/2019 3:24 PM CST Patient called the office and then stated that he needed to call the office back because his physician was on the other line. AL WORKER PALLIATIVE CARE * Telephone Encounter - Toña Yeung - 11/14/2019 3:23 PM CST Telephone encounter today 11-14-2019 @ 1: [address] Raza I spoke with patient about an hour ago please refer to the documentation below. ?? Patient states that he already attempted to contact Dr. Easley and is unable to contact the physician. Patient states that he currently has a tourist adviser to assist with obtaining his records. Patient states that he has contacted multiple psychiatrist and has not been able to establish care. ?? Patient staets the Dr. Easley is not accepting his calls do to pending lawsuit that patient has obtained a tourist adviser since he was not being treated within a 30 day window from being discharge from practice- due to legal problem that patient states has been dropped. Patient stats that Dr. Landeros was apprehensive that he was having this issue and requested that the patient establish care with new provider. ?? Patient states that he is willing to be prescribed the 1 mg TID until established with a new psychiatrist. Patient states that is willing to have Dr. Raza contact the pharmacy and verify patient is not pharmacy shopping. ?? Patient will be out of medication as of today- Patient does not want to go back to ED they will notassist. ?? Patient is requesting to establish care thread singer at [facility]. Patient is only requesting refill interm until scheduled with a new psychiatrist. ?? Patinet states that he feel ROOF SHINGLER Petzchen is rushing during visit. ?? Patient is requesting a direct call from Dr. Raza.- patient is concerned with withdrawal since being on medication for the past 20 years. Best Contact number [phone] ?? 11-14-2019 telephone encounter ?? Notified patient of message ?? In middle of conversation patient got frustrated and disconnected the call. ?? Attempted to contact patient to notify him that if he scheduled in psych that they will request that Dr. Raza prescribe until seen and patient is not answering the phone.? Left message??@??[phone]??with affiliation and contact number, , no pertient patient information left on voicemail. ?? [phone] ?? 11-13-2019 telephone encounter documentation.?? I sent a message to Jovan Lei asking for her help getting this man into psych. If we know when he can be seen, will see if Dr Raza will give enough to get him to psych appt only. ?? VENTURA Palafox's Message?? Please call patient back to prevent numerous additional phone calls. I will NOT be able to call him back till after 5 pm Unfortunately, Dr Raza will NOT sign script for Alprazolam. He will need to see psych. ??Not sure yet when they can get him in ?? Radha Palafox, SHIP KEEPER-VETERANS' COORDINATOR ?? I sent a message to Jovan Lei asking for her help getting this man into psych. If we know when he can be seen, will see if Dr Raza will give enough to get him to psych appt only. AL WORKER PALLIATIVE CARE * Telephone Encounter - Toña Yeung - 11/14/2019 1:39 PM CST Notified patient of message In middle of conversation patient got frustrated and disconnected the call. Attempted to contact patient to notify him that if he scheduled in psych that they will request that Dr. Raza prescribe until seen and patient is not answering the phone. Left message @ [phone] with affiliation and contact number, , no pertient patient information left on voicemail. 11-13-2019 telephone encounter documentation. I sent a message to Jovan Lei asking for her help getting this man into psych. If we know when he can be seen, will see if Dr Raza will give enough to get him to psych appt only. ROOF SHINGLER Vivienne's Message Please call patient back to prevent numerous additional phone calls. I will NOT be able to call him back till after 5 pm Unfortunately, Dr Raza will NOT sign script for Alprazolam. He will need to see psych. Not sure yet when they can get him in ?? Radha Palafox, SHIP KEEPER-VETERANS' COORDINATOR I sent a message to Jovan Lei asking for her help getting this man into psych. If we know when he can be seen, will see if Dr Raza will give enough to get him to psych appt only. AL WORKER PALLIATIVE CARE * Telephone Encounter - Radha Palafox APRN-CNP - 11/14/2019 12:54 PM SOCIAL WORKER PALLIATIVE CARE Please call patient back to prevent numerous additional phone calls. I will NOT be able to call him back till after 5 pm Unfortunately, Dr Raza will NOT sign script for Alprazolam. He will need to see psych. Not sure yet when they can get him in MELISA Diaz AL WORKER PALLIATIVE CARE * Telephone Encounter - Zara Gusman RN - 11/14/2019 9:14 AM SOCIAL WORKER PALLIATIVE CARE Patient calling in this morning to follow with discussion that he had with Deena Palafox APRN, and was to talk to her superior about prescribing a new drug for him, as patient c/o feeling nervous. Please call patient: [phone]. AL WORKER PALLIATIVE CARE documented in this encounter Plan of Treatment Not on file documented as of this encounter Visit Diagnoses Not on filedocumented in this encounter
--- OUTSIDE RECORDS SUMMARY | 2024-09-10 03:44 | XMS_ITS | Encounter Summary ---
Author Organization [facility] Address [address] [facility] [place] [address] Care Team Providers Care Portfolio Specialist Name Role Phone Unavailable Primary Care Provider Unavailabl e Encounter Details Date Type Department Care Team (Latest Contact Info) Description 10/20/2019 2:57 PM HAND MARKER - 10/20/2019 11:59 PM [facility] Hospital Encounter [facility] [address] [place] [phone] Radha Palafox, PLATE M[employer] MILL HAND-QUALITY ASSURANCE TEST PROGRAM MANAGER [address] [facility] [address] [facility] OF [facility] [place] [phone] Discharge Disposition: Home or Self Care Social [...] H PRF SOB 1 Inhaler 11 08/01/2019 cyclobenzaprine (FLEXERIL) 10 MG tablet Take 10 mg by mouth 3 times daily as needed 10/06/2019 fluticasone propionate (FLONASE) 50 MCG/ACT nasal spray [place] 2 sprays into each nostril once daily 15.8 g 11 08/01/2019 hyoscyamine 0.125 MG tabletIndications:Acute diverticulitis Take 1 tablet by mouth every 4 hours as needed for Spasms 30 tablet 09/30/2019 promethazine (PHENERGAN) 25 MG tabletIndications:Acute diverticulitis Take 1 tablet by mouth every 6 hours as needed for Nausea/Vomiting 20 tablet 10/20/2019 simethicone (GAS-X) 80 MG chew tablet Take 80 mg by mouth sucralfate (CARAFATE) 1 GM tablet TK 1 T QID 0 05/14/2019 ALPRAZolam (XANAX) 2 MG tablet Take 1 Tab by mouth 2 times daily as needed for Anxiety. 40 Tab 0 07/18/2012 11/09/2019 atenolol (TENORMIN) 100 MG tablet Take 1 tablet by mouth once daily 30 tablet 5 08/01/2019 12/26/2019 ciprofloxacin (CIPRO) 500 MG tabletIndications:Acute diverticulitis Take 1 tablet by mouth 2 times daily for 10 days 20 tablet 09/30/2019 12/23/2019 finasteride (PROSCAR) 5 MG tablet Take 5 mg by mouth once daily 11/09/2019 metroNIDAZOLE (FLAGYL) 500 MG tabletIndications:Acute diverticulitis Take 1 tablet by mouth 3 times daily for 10 days 30 tablet 09/30/2019 12/23/2019 omeprazole (PRILOSEC) 40 MG capsule Take 1 capsule by mouth daily before breakfast 30 capsule 6 08/01/2019 11/15/2019 documented as of this encounter Plan of Treatment Not on file documented as of this encounter Procedures Procedure Name Priority Date/Time Associated Diagnosis Comments XR LUMBAR SPINE 4VW OR MORE Routine 10/20/2019 3:18 PM HAND MARKER Chronic low back pain without sciatica, unspecified back pain laterality documented in this encounter Results * XR LUMBAR SPINE 4VW OR MORE (10/20/2019 3:18 PM HAND MARKER) Anatomical Region Laterality Modality Spine Radiographic Katarzyna ging 10/20/2019 3:23 PM HAND MARKER Impressions 10/20/2019 3:38 PM HAND MARKER IMPRESSION: No acute fracture or subluxation identified. Multilevel degenerative changes. Dictated by Devon Jolly MD (radiology teacher) I, Dr. COURTNEY REYES M.D. have personally reviewed and interpreted this examination/study. This report was electronically signed by COURTNEY REYES M.D. ??on 10/20/2019 3:38 PM . Narrative 10/20/2019 3:38 PM HAND MARKER EXAMINATION: XR LUMBAR SPINE 4VW OR MORE [...] sacroiliac joints are normal. Procedure Note Courtney Reyes MD - 10/20/2019 EXAMINATION: XR LUMBAR SPINE [...] degenerative changes. Dictated by Devon Jolly MD (radiology teacher) I, Dr. COURTNEY REYES M.D. have personally reviewed and interpretedthis examination/study. This report was electronically signed by COURTNEY REYES M.D. on10/20/2019 3:38 PM . Radha Palafox PLATE MILL MILL HAND-QUALITY ASSURANCE TEST PROGRAM MANAGER DIAGNOSTIC IMAGING ORDERABLES documented in this encounter Visit Diagnoses Diagnosis Chronic low back pain without sciatica, unspecified back pain laterality documented in this encounter
--- OUTSIDE RECORDS SUMMARY | 2024-09-10 03:44 | XMS_ITS | Encounter Summary ---
Author Organization [facility] Address [address] [facility] [place] [address] Care Team Providers Care Perioperative Tech Name Role Phone Unavailable Primary Care Provider Unavailabl e Encounter Details Date Type Department Care Team (Latest Contact Info) Description 11/23/2019 Travel Social History Tobacco Use Types Packs/Day [...]
--- OUTSIDE RECORDS SUMMARY | 2024-09-10 03:44 | XMS_ITS | Encounter Summary ---
Author Organization [facility] Address [address] [facility] [place] [address] Care Team Providers Care Promotions Assistant Sales Marketing Name Role Phone Unavailable Primary Care Provider Unavailabl e Reason for Visit * Reason Onset Date Comments General 11/23/2019 Encounter Details Date Type Department Care Team (Late st Contact Info) Description 11/23/2019 Telephone [facility] [address] [place] [address] Radha Palafox, SEWER MAINTENANCE SUPERVISOR-FINANCIAL SERVICES EDUCATION CONSULTANT [address] OF [facility] [place] [phone] General Social History Tobacco Use Types Packs/Day Years [...] Telephone Encounter - Zara Gusman RN - 11/23/2019 1:25 PM CDT 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 Offered to transfer to scheduling, but then patient stated quote, That's okay I'm just going to look for another doctor , then hung up. documented in this encounter Plan of Treatment Not on file documented as of this encounter Visit Diagnoses Not on filedocumented in this encounter
--- OUTSIDE RECORDS SUMMARY | 2024-09-10 03:44 | XMS_ITS | Encounter Summary ---
Author Organization [facility] Address [address] [facility] [place] [address] Care Team Providers Care Manager Family Name Role Phone Unavailable Primary Care Provider Unavailabl e Reason for Visit * Reason Onset Date Comments Blood Pressure 12/01/2019 Encounter Details Date Type Department Care Team (Late st Contact Info) Description 12/01/2019 Nurse Triage [facility] [address] [facility] [address] [place] [address] Radha Palafox, CONTRACTS OFFICER-RETANNED LEATHER ROLLER [address] OF [facility] [place] [place] [phone] Blood Pressure Social History Tobacco Use Types [...] Flores RN - 12/01/2019 10:17 AM CDT Reason for Disposition ? ? [1] Systolic BP >= 160 OR Diastolic >= 100 AND [2] cardiac or neurologic symptoms (e.g., chest pain, difficulty breathing, unsteady gait, blurred vision) Protocols used: HIGH BLOOD [id number] Patient given ER disposition, patient verbalizes understanding. Closing statement given. Patient warm transferred to scheduling team for further assistance in scheduling an appointment. Call to escalation They gave number for him to transferred to to leave a message He fought with me on the phone abut this Advised he has been dismissed from practice and we will provide refills during that 30 day period documented in this encounter Plan of Treatment Not on file documented as of this encounter Visit Diagnoses Not on filedocumented in this encounter
--- OUTSIDE RECORDS SUMMARY | 2024-09-10 03:44 | XMS_ITS | Encounter Summary ---
Author Organization [facility] Address [address] [facility] [place] [address] Care Team Providers Care Rental Representative Name Role Phone Unavailable Primary Care Provider Unavailabl e Reason for Visit * Reason Onset Date Comments Medication Issue 10/24/2019 Encounter Details Date Type Department Care Team (Late st Contact Info) Description 10/24/2019 Telephone [facility] [address] [facility] [address] [place] [address] Radha Palafox APRN-CNP [address] OF [facility] [place] [phone] Medication Issue Social History Tobacco Use Types Packs/Day Years [...] Telephone Encounter - Radha Palafox APRN-CNP - 10/24/2019 5:44 PM NEUROPSYCHIATRIC AIDE Called patient. Again talking about his urinary sx. Has consult with urology . What good is a consult going to do .. Upset he was given Tamsulosin due to sulfa allergy. Told him he could take this. Claims pharmacist would not fill. Does not know what good I am to him. Wants new male doctor which he requested over weekend Suspect he will not be happy with anyone he gets. MELISA Diaz OPSYCHIATRIC AIDE * Telephone Encounter - Mallory Flores RN - 10/24/2019 2:47 PM CST Patient calling again today He is complaining of being lightheaded. Please see below message OPSYCHIATRIC AIDE * Telephone Encounter - Mallory Flores RN - 10/24/2019 2:27 PM CST Patient calling and he is out xanax and psychiatrist will not refill He wants to speak with you about this [phone] OPSYCHIATRIC AIDE documented in this encounter Plan of Treatment Not on file documented as of this encounter Visit Diagnoses Not on filedocumented in this encounter
--- OUTSIDE RECORDS SUMMARY | 2024-09-10 03:44 | XMS_ITS | Encounter Summary ---
Author Organization [facility] Address [address] [facility] [place] [address] Care Team Providers Care Financial Aid Counselor Name Role Phone Unavailable Primary Care Provider Unavailabl e Reason for Visit * Reason Onset Date Comments General 11/15/2019 Encounter Details Date Type Department Care Team (Late st Contact Info) Description 11/15/2019 Telephone [facility] [address] [place] [address] Radha Palafox, GOLF CLUB HEAD INSPECTOR-PARQUET FLOOR LAYER [address] OF [facility] [place] [phone] General Social History Tobacco Use Types Packs/Day [...] Telephone Encounter - Toña Yeung - 11/15/2019 1:05 PM CST There are 4 separate encounter that have been created for the same request for this patient. Pleasebe sure review the chart prior to creating a new encounter. Having these many pending encounter makes it difficult to follow thorough and reinforce provider recommendations. ICIDE CONTROL INSPECTOR * Telephone Encounter - Toña Yeung - 11/15/2019 12:41 PM CST Patient states that he was in the ER last night and is competely out of medication Went wand patient was escorted patient was given the option to leave or be escorted out and patientstates he opted to be escorted out of the ER. Rinforce multiple message from and HEAT TREAT SUPERVISOR Vivienne in regards to Not prescribing medication and being seen in the ED. Also reinforced to patient the need to establish care with new psych provider. Patient is scheduled on 12-12-2019 at am no record of appointment in [facility]. Patient reports he is having withdrawal symptoms RN advised patient to be seen in ED per previous provider recommendations. Patient declined at this time and states he attempted to go to the ER and was asked to leave. Patient denies any thought of harming himself or anyone else at this time. If anything new develops,if anything gets worse or if you become increasingly concerned for any reason, please seek out immediate medical Attention. ICIDE CONTROL INSPECTOR * Telephone Encounter - Zara Gusman RN - 11/15/2019 8:14 AM PESTICIDE CONTROL INSPECTOR Patient calling this morning stating that he is out of medication, xanax, and stated that he went to [facility] ED who wanted to keep him and detox him from Benzodiazopines or be escorted out of the ED, patient opted to be escorted out of the ED and because he used profanity and drug seeking, and is now calling to speak with someone in authority, he wants permission from Dr. Raza to switch to Dr. North. Patient request Dr. Raza to call him: [phone]. Note: Patient vacillates between being nice, and being insulting, and threatening his life mildly and being manipulative and hyper-critical. ICIDE CONTROL INSPECTOR documented in this encounter Plan of Treatment Not on file documented as of this encounter Visit Diagnoses Not on filedocumented in this encounter
--- OUTSIDE RECORDS SUMMARY | 2024-09-10 03:44 | XMS_ITS | Encounter Summary ---
Author Organization [facility] Address [address] [facility] [place] [address] Care Team Providers Care Adjustment Examiner Name Role Phone Unavailable Primary Care Provider Unavailabl e Encounter Details Date Type Department Care Team (Late st Contact Info) Description 11/23/2019 Orders Only [facility] [address] [place] [address] Vanessa Jordan, RN Allergic to IV contrast Social History Tobacco Use Types Packs/Day Years Used Date Smoking Tobacco: Former Smokeless Tobacco: Never Alcohol Use Standard Drinks/Week Comments No 0 (1 standard drink = 0.6 oz pur e alcohol) Sex and Gender Information Value Date Recorded Sex Assigned at Not on file Gender Identity Not on file Sexual Orientation Not on file documented as of this encounter Progress Notes * Vanessa Jordan, DOMITILA - 11/23/2019 9:12 AM CDT I was notified by CT that pt has IV contrast allergy and needs pre-procedure prednisone and benadryl ordered. Orders placed. Called pt to notify and provide instructions on how to take. He notified me that he will need to postpone the appointment as he is not feeling well. He stated he has a sore throat and body aches. Agreed that he should reschedule. Also asked him whether he has called and notified his PCP of the symptoms. He stated he no longer sees Radha Palafox NP and currently does not have a PCP. Advised to seek another PCP. Transferred to scheduling. documented in this encounter Plan of Treatment Not on file documented as of this encounter Visit Diagnoses Diagnosis Allergic to IV contrast- Primary Allergy, unspecified not elsewhere classified documented in this encounter
--- OUTSIDE RECORDS SUMMARY | 2024-09-10 03:44 | XMS_ITS | Encounter Summary ---
Author Organization [facility] Address [address] [facility] [place] [address] Care Team Providers Care Anthropology Professor Name Role Phone Unavailable Primary Care Provider Unavailabl e Reason for Visit * Reason Onset Date Comments Medication Issue 11/14/2019 alprazolam Encounter Details Date Type Department Care Team ([facility] st Contact Info) Description 11/14/2019 Telephone [facility] [address] [facility] [address] [place] [address] Radha Palafox, CDL DEDICATED TRUCK DRIVER-MEDICAL RADIATION TECH [address] OF [facility] [place] [phone] Medication Issue (alprazolam) Social History Tobacco Use Types Packs/Day Years [...] to establish care with new psych provider. ?? Patient is scheduled on 12-12-2019 at am no record of appointment in [facility]. Patient states that VENTURA Palafox notified him of this appointment date and time. T AND DRUM ROOM SUPERVISOR * Telephone Encounter - Toña Yeung - 11/15/2019 7:45 AM CST Patient called in this morning requesting number to [facility] attempted to contact the psych department to warm transfer and no one is aviliable per message until 8 am. Notified patient and provided patient with direct number and patient disconnected the call. [phone] T AND DRUM ROOM SUPERVISOR * Telephone Encounter - Toña Yeung - 11/14/2019 3:47 PM CST Patient is concerned with potential withdrawal denied any withdrawal symptoms on phone. T AND DRUM ROOM SUPERVISOR * Telephone Encounter - North Raza MD - 11/14/2019 3:35 PM CST Please call the patient If he feels he is going into withdrawal he needs to go to an Emergency Room for evaluation and management by a psychiatrist. T AND DRUM ROOM SUPERVISOR * Telephone Encounter - Toña Yeung - 11/14/2019 3:25 PM CST Patient called the office and then stated that he needed to call the office back because his physician was on the other line. T AND DRUM ROOM SUPERVISOR * Telephone Encounter - Toña Yeung - 11/14/2019 2:[address] Raza I spoke with patient about an hour ago please refer to the documentation below. Patient states that he already attempted to contact Dr. Easley and is unable to contact the physician. Patient states that he currently has a foam tank laminator to assist with obtaining his records. Patient states that he has contacted multiple psychiatrist and has not been able to establish care. Patient staets the Dr. Easley is not accepting his calls do to pending lawsuit that patient has obtained a foam tank laminator since he was not being treated within a 30 day window from being discharge from practice- due to legal problem that patient states has been dropped. Patient stats that Dr. Landeros was apprehensive that he was having this issue and requested that the patient establish care with new provider. Patient states that he is willing to be prescribed the 1 mg TID until established with a new psychiatrist. Patient states that is willing to have Dr. Raza contact the pharmacy and verify patient is not pharmacy shopping. Patient will be out of medication as of today- Patient does not want to go back to ED they will notassist. Patient is requesting to establish care air hammer stripper at [facility]. Patient is only requesting refill interm until scheduled with a new psychiatrist. Patinet states that he feel VENTURA Palafox is rushing during visit. Patient is requesting a direct call from Dr. Raza.- patient is concerned with withdrawal since being on medication for the past 20 years. Best Contact number [phone] 11-14-2019 telephone encounter Notified patient of message ?? In middle of conversation patient got frustrated and disconnected the call. ?? Attempted to contact patient to notify him that if he scheduled in psych that they will request that Dr. Raza prescribe until seen and patient is not answering the phone. ?? Left message @ [phone] with affiliation and contact number, , no pertient patient information left on voicemail. ?? [phone] ?? 11-13-2019 telephone encounter documentation. I sent a message to Jovan Lei asking for her help getting this man into psych. If we know when he can be seen, will see if Dr Raza will give enough to get him to psych appt only. ?? VENTURA Palafox's Message Please call patient back to prevent numerous additional phone calls. I will NOT be able to call him back till after 5 pm Unfortunately, Dr Raaz will NOT sign script for Alprazolam. He will need to see psych. ??Not sure yet when they can get him in ?? Radha Palafox, CDL DEDICATED TRUCK DRIVER-MEDICAL RADIATION TECH ?? I sent a message to Jovan Lei asking for her help getting this man into psych. If we know when he can be seen, will see if Dr Raza will give enough to get him to psych appt only. T AND DRUM ROOM SUPERVISOR * Telephone Encounter - North Raza MD - 11/14/2019 2:25 PM CST Please call He needs to call his previous psychiatrist, Dr Greyson Easley and discuss his treatment until he is seen by another psychiatrist. T AND DRUM ROOM SUPERVISOR * Telephone Encounter - Umm Erickson RN - 11/14/2019 2:04 PM CST Patient called again demanding to speak with a physician regarding his alprazolam refill; states hehas been on it for 22 years and is now out and starting to experience withdrawal symptoms; states he is currently having chills and is concerned about experiencing seizures; ran out of medication yesterday; explained I was sending this message; he responded that if he has not heard back in an hour,will be calling again. Best call back number to reach patient: [phone]. T AND DRUM ROOM SUPERVISOR documented in this encounter Plan of Treatment Not on file documented as of this encounter Visit Diagnoses Not on filedocumented in this encounter
--- OUTSIDE RECORDS SUMMARY | 2024-09-10 03:44 | XMS_ITS | Encounter Summary ---
Author Organization [facility] Address [address] [facility] [place] [address] Care Team Providers Care Monument Letterer Name Role Phone Unavailable Primary Care Provider Unavailabl e Reason for Visit * Reason Onset Date Comments Pain Abdominal 12/16/2019 Encounter Details Date Type Department Care Team (Late st Contact Info) Description 12/16/2019 Telephone [facility] [address] [facility] [address] [place] [address] Radha Palafox APRN-CNP [address] OF [facility] [place] [phone] Pain Abdominal Social History Tobacco Use Types Packs/Day Years [...] Telephone Encounter - Radha Palafox APRN-CNP - 12/16/2019 12:06 PM CDT Patient called with left sided abd pain and tells me he used to be on Levsin 0.125 mg q 6 hr prn and this helped and he would like called in. He has not had in months. Called to pharmacy. MELISA Diaz documented in this encounter Plan of Treatment Not on file documented as of this encounter Visit Diagnoses Diagnosis Acute diverticulitis documented in this encounter
--- OUTSIDE RECORDS SUMMARY | 2024-09-10 03:44 | XMS_ITS | Encounter Summary ---
Author Organization [facility] Address [address] [place] [address] Care Team Providers Care Oil Laboratory Analyst Name Role Phone Unavailable Primary Care Provider Unavailabl e Reason for Visit * Reason Onset Date Comments Advice Only 10/21/2019 Encounter Details Date Type Department Care Team (Late st Contact Info) Description 10/21/2019 Telephone [facility] [address] [facility] [address] [place] [address] Rama Torrez, NYA-CLINICAL RESEARCH NURSE [address] OF [facility] [place] [address] Advice Only Social History Tobacco Use Types [...] Miscellaneous Notes * Telephone Encounter - Rama Torrez, MELISA - 10/21/2019 3:51 PM IT BUSINESS PROCESS ARCHITECT time study analyst note. Received call from [facility] at 3:47pm. Patient calling about his low back pain, located on the left side. Notes he had an Xray 2 days ago and was told it was arthritis and has tried heat and bengay without relief. Notes back pain does notfeel like arthritis, he knows what arthritis feels like and this feels like rake in his back or like when he had his gallbladder take out. Again notes that he played football and baseball and this does not feel like arthritis. Notes he took a flexeril which helped but made him feel very sleepy and he still hurts when he walks. Feels this is just a band aid. I discussed with patient that his xray from 10/20 shows arthritis and he can continue ice/heat but that without assessment, I cannot do anything else for him. Then went into his urinary frequency again, which he called about 10/19/2019. I reviewed his UA againfrom 10/20 and assured him that he had no signs of infection or blood in his urine. Then he went intoa story about a recent ED visit where he did have blood in his urine and how he had such urinary frequency/uregency he wet the bed. Patient then noted he feels that something was missed in his visit. I encouraged him to go to the ED or urgent care for re-evaluation if he does not agree with her assessment. Notes he may find a newPCP as he feels he is not getting adequate care. I stated that he could find a new PCP if he wished. He then stated that he felt I had an attitude in saying he could find a new PCP if he was not happy, then began to mention multiple issues he was not happy with at his previous visits to [facility] including a story about cutting his foot and and how he may be getting a sinus infection. Notes he asked a nurse some questions and it seemed like she wanted to leave. Mott his last visit was rushed and the nurse would not get the MOBILE HEAVY EQUIPMENT MECHANIC to assess his foot-just noted it would be fine and never got MOBILE HEAVY EQUIPMENT MECHANIC to assesshis foot. Then transitioned to say that he feels he should be put in the hospital to assess is ?sigmoid tumor. Patient then continued to express frustration with his current care. Offered patient an ACS appointment for Wednesday for re-assessment. Notes he wants to see a male provider. Discussed having him seen a male resident with Dr. Bernal or other male attending overseeing him, which he seemed agreeable to. But then went off on another tangent about dealing with court. Notes he is currently dealing with some court hearings in [place]. Went on to say his last psychiatrist dropped him . Notes he cannot get his psych meds from previous psych anymore. Reports at last visit was told by MOBILE HEAVY EQUIPMENT MECHANIC Vivienne that she could not do anything about that medication and notes he was worried about going into respiratory depression. When asked if he felt like he was having respirat ory depression, noted that he felt a bit jittery and has a few tabs left of xanex. Then went into the issues he had with his previous psychiatrist and concrete paving supervisor again. I again encouraged him that if he did not agree with his previous assessment or feels he is having withdrawal symptoms from his xanex to go to the ED or UC. I again offered to reach out to schedulingto get him in with a male resident DANYEL in [facility]. He then went on to talk about how she is trying to get him into psych and how some people have fixable psych issues but he has deep issues. I again offered to see if we can get him scheduled with a male resident during the week and that ifhe feels his symptoms are worsening or he disagrees with assessment on 10/19 to go to the ED or UC for further evaluation. He verbalized understanding. I spent a total of 40 minutes on this phone call with the patient allowing him to vent his frustrations. Routing to PCP VENTURA Palafox and scheduling to set patient up with MALE resident PCP for visit DANYEL. MELISA Sparks BUSINESS PROCESS ARCHITECT documented in this encounter Plan of Treatment Not on file documented as of this encounter Visit Diagnoses Not on filedocumented in this encounter
--- OUTSIDE RECORDS SUMMARY | 2024-09-10 03:44 | XMS_ITS | Encounter Summary ---
Author Organization [facility] Address [address] [facility] [place] [address] Care Team Providers Care Flower Stripper Name Role Phone Unavailable Primary Care Provider Unavailabl e Reason for Visit * Reason Onset Date Comments Dizziness 11/11/2019 TMJ 11/11/2019 Encounter Details Date Type Department Care Team (Late st Contact Info) Description 11/11/2019 Telephone [facility] [address] [facility] [address] [place] [address] Radha Palafox APRN-CNP [address] OF [facility] [place] [phone] Dizziness; TMJ Social History Tobacco Use Types Packs/Day Years [...] Telephone Encounter - Radha Palafox APRN-CNP - 11/11/2019 10:55 PM MACHINE INKER Called at 1 AM to say he was lightheaded and dizzy which is chronic complaint. Chiropractor told him that his TMJ was out of place. Told him to take Ibuprofen or tylenol and put warm pack on area. Said the chiropractor told him same thing and it still bothered him. Patient wanted to continue talking. Told him there was nothing more I could do for him over the phone. He finally agreed to hang up. MELISA Diaz INE INKER documented in this encounter Plan of Treatment Not on file documented as of this encounter Visit Diagnoses Not on filedocumented in this encounter
--- OUTSIDE RECORDS SUMMARY | 2024-09-10 03:44 | XMS_ITS | Encounter Summary ---
Author Organization [facility] Address [address] [place] [address] Care Team Providers Care Therapeutic Riding Instructor Name Role Phone Unavailable Primary Care Provider Unavailabl e Reason for Visit * Reason Onset Date Comments Medication Issue 10/20/2019 Encounter Details Date Type Department Care Team (Late st Contact Info) Description 10/20/2019 Telephone [facility] [address] [facility] [address] [place] [address] Rama Torrez, NYA-VAMSI [address] OF [facility] [place] [address] Medication Issue Social History Tobacco Use Types [...] Telephone Encounter - Rama Torrez APRN-CNP - 10/20/2019 7:54 PM SUPERVISOR SOAKERS scallop shucker note. Received call via [facility] at 7:45pm. Patient reports he was prescribed a medication at visit with VENTURA Palafox today and was prescribed medication to help him with urinary urgency and frequency, unsure of what the medication is called orwhat exactly it was for, but that he was notified by the pharmacy that the medication contained sulfur and he has a sulfa allergy and should not take it. Asking for alternate medication. I notified patient I would pass the message along to VENTURA Palafox for her to review and adjust medication, but he noted he wanted a new medication tonight before his pharmacy closed at 9pm. I reviewed the chart. Had negative UA in the office. Was started on tamsulosin. Discussed that proscar could be an alternative medication to help with his urination, as it appearsthat tamuslosin was started for ?prostate issue. He then asked if it would be contraindicated with any of his allergies and asked that I call the pharmacy to check and see if his insurance would cover it. I called his pharmacy who noted they believed proscar would be OK for patient to take given multiple allergies and noted that they noted his insurance would cover. Verbal order placed for proscar, 30tabs with 0 refills. I called patient back and notified him of the above. Patient noted he talked to his pharmacy already and that he was notified the proscar was for his prostate, then stated you think its my prostate?You don't even know me. He then commented on possible infection. Notified that UA completed today did not show signs of infection. Educated that tamuslosin is also a medication to help with urgency/frequency related to potential prostate issue-which is what was prescribed by VENTURA Palafox today, andthat proscar was an alternative that did have interaction with his allergies. Encouraged to give the medication a few days to work. Verbalized understanding. Note routed to VENTURA Palafox. MELISA Sparks RVISOR SOAKERS documented in this encounter Plan of Treatment Not on file documented as of this encounter Visit Diagnoses Not on filedocumented in this encounter
--- OUTSIDE RECORDS SUMMARY | 2024-09-10 03:44 | XMS_ITS | Encounter Summary ---
Author Organization [facility] Address [address] [place] [address] Care Team Providers Care Lot Attendant Name Role Phone Unavailable Primary Care Provider Unavailabl e Reason for Visit * Reason Onset Date Comments Diverticulitis 12/23/2019 Encounter Details Date Type Department Care Team (Late st Contact Info) Description 12/23/2019 Telephone [facility] [address] [facility] [address] [place] [address] Lanie Crespo MD [address] OF [facility] [place] [phone] Diverticulitis Social History Tobacco Use Types Packs/Day Years [...] encounter Miscellaneous Notes * Telephone Encounter - Lanie Crespo MD - 12/23/2019 7:39 AM CDT Call from patient. He believes he has a flare of diverticulitis: LLQ crampy pain, diarrhea, chills.No fever, no nausea, no vomiting. Prescribed ciprofloxacin and metronidazole. Also believes he has gastritis, belches a lot. Also wants to know what he can do about his alprazolam. Advised this medication will not be prescribed outside normal office hours. Reviewed telephone message 12/11/19 from VENTURA Palafox advising no Rx for alprazolam. Patient says she was supposed to discuss with Dr. Raza, Dr. Raza never called him back. Wants to know who head of the department is so he can talk to them. Advised Dr. Castillo is division road supervisor. documented in this encounter Plan of Treatment Not on file documented as of this encounter Visit Diagnoses Diagnosis Acute diverticulitis documented in this encounter
--- OUTSIDE RECORDS SUMMARY | 2024-09-10 03:44 | XMS_ITS | Encounter Summary ---
Author Organization [facility] Address [address] [facility] [place] [address] Care Team Providers Care Brake Mechanic Name Role Phone Unavailable Primary Care Provider Unavailabl e Reason for Visit * Reason Onset Date Comments General 12/04/2019 Encounter Details Date Type Department Care Team (Late st Contact Info) Description 12/04/2019 Telephone [facility] [address] [place] [address] [place] [address] Radha Palafox APRN-CNP [address] OF [facility] [place] [phone] General Social History Tobacco Use Types Packs/Day [...] Encounter - Zara Gusman RN - 12/04/2019 1:51 PM CDT Patient is calling in for the 3rd time today stating that now his BP is up from 170/90, now he states 170/100 and want a change of his medication hydralazine 25 mg TID ordered by Dr. Raza he states this weekend because it causes him chest pain, and he is asking why he has not yet been called, and is Dr. Raza good at calling patients back, but now he wants MELISA Nunez to call him even though a week ago or more he became belligerent and fired her and maligned her to this nurse. Patient suggested to go to ED or to Urgent care, but patient retorted, No, they won't do anything ,and last week patient was seeking alprazolam XR PO 1 mg. Mohinders Deena Palafox to call him: [phone] documented in this encounter Plan of Treatment Not on file documented as of this encounter Visit Diagnoses Not on filedocumented in this encounter
--- OUTSIDE RECORDS SUMMARY | 2024-09-10 03:44 | XMS_ITS | Encounter Summary ---
Author Organization [facility] Address [address] [place] [address] Care Team Providers Care Final Touch Up Painter Name Role Phone Unavailable Primary Care Provider Unavailabl e Reason for Visit * Reason Onset Date Comments General 11/27/2019 Encounter Details Date Type Department Care Team (Late st Contact Info) Description 11/27/2019 Telephone [facility] [address] [place] [address] [place] [address] Radha Palafox APRN-CNP [address] OF [facility] [place] [phone] General Social History Tobacco Use Types Packs/Day [...] encounter Miscellaneous Notes * Telephone Encounter - Jaskaran Wilson - 11/27/2019 1:50 PM CDT Patient has been informed of the message and would like to know does this mean [facility] or just [facility]?I reiterated to the patient that a letter has been sent for his review. * Telephone Encounter - Radha Palafox APRN-CNP - 11/27/2019 1:40 PM CDT Patient has been dismissed from U. He should have received a letter. He should NOT be given another appt here. He should call [facility] about screening at drive through screening center. MELISA Diaz * Telephone Encounter - Zara Gusman RN - 11/27/2019 1:23 PM CDT Patient is calling in regarding getting tested for the Vázquez Virus, and C/O Right eye swelling, and now the Left Eye is swollen, patient says that he has a fever but does not have a thermometer, using his emergency inhaler, has been sick for two weeks and is not getting better and wants to come into be tested for the Virus. Patient asked what the symptoms for the Vázquez Virus were, after all the questions had been given him, but this TNs. Suggested that he ask his PCP, patient then stated that he had fired MELISA Nunez and wanted to know who his new Dr was. Did tell patient that he may contact [facility] or [facility] as they may be doing testing, but then patient became belligerent and insulting. Transferred to scheduling for ACS appointment. documented in this encounter Plan of Treatment Not on file documented as of this encounter Visit Diagnoses Not on filedocumented in this encounter
--- OUTSIDE RECORDS SUMMARY | 2024-09-10 03:44 | XMS_ITS | Encounter Summary ---
Author Organization [facility] Address [address] [facility] [place] [address] Care Team Providers Care Resident Caregiver Name Role Phone Unavailable Primary Care Provider Unavailabl e Reason for Visit * Reason Onset Date Comments FLU 11/27/2019 Encounter Details Date Type Department Care Team (Late st Contact Info) Description 11/27/2019 Telephone [facility] [address] [place] [address] [place] [address] Radha Palafox, JEWELRY MANAGER-FILM MAKER [address] [facility] [address] OF [facility] [place] [phone] FLU Social History Tobacco Use Types Packs/Day Years [...] Miscellaneous Notes * Telephone Encounter - Mallory Flores, DOMITILA - 11/27/2019 1:21 PM CDT Caller transferred to triage line from director electrical engineering and call got disconnected. Per director electrical engineering caller thinks he has coronavirus Attempted to call back and left vm. documented in this encounter Plan of Treatment Not on file documented as of this encounter Visit Diagnoses Not on filedocumented in this encounter
--- OUTSIDE RECORDS SUMMARY | 2024-09-10 03:44 | XMS_ITS | Encounter Summary ---
Author Organization [facility] Address [address] [facility] [place] [address] Care Team Providers Care Family Service Worker Name Role Phone Unavailable Primary Care Provider Unavailabl e Reason for Visit * Reason Onset Date Comments Medication Request 11/13/2019 Refill Request 11/13/2019 Update 11/13/2019 Encounter Details Date Type Department Care Team (Late st Contact Info) Description 11/13/2019 Telephone [facility] [address] [facility] [address] [place] [address] Radha Palafox APRN-CNP [address] OF [facility] [place] [phone] Medication Request; Refill Request; Update Social History Tobacco Use Types Packs/Day Years [...] Telephone Encounter - Radha Palafox APRN-CNP - 11/13/2019 4:51 PM INSTRUCTIONAL PARAPROFESSIONAL Called patient--another 20 min phone call. Afraid of going through withdrawal. Has been going to ER's ([facility] and possibly [facility]) Has used different pharmacies. Called [facility]--no Alprazolam for months. Loree Rodriguez [phone] I sent a message to Jovan Lei asking for her help getting this man into psych. If we know when he can be seen, will see if Dr Raza will give enough to get him to psych appt only. Confirmed with Loree that he got ALprazolam 1 mg #5 tabs on 11/09 and Alprazolam 2 mg #16 tabs on 11/06. Those were the only one he got since fired by his pyschiatrist--Dr Easley who was giving him 150 2 mg tabs monthly. MELISA Diaz RUCTIONAL PARAPROFESSIONAL * Telephone Encounter - Jovan Grewal - 11/13/2019 2:43 PM CST Pt called again, states he was unaware that on 05/20 a referral was sent to Psych, but states they are not taking anyone until January anyway. States he has been on the phone with his insurance company [employer], and is requesting that the provider call him back because he doesn't know what else to do Message routed to provider RUCTIONAL PARAPROFESSIONAL * Telephone Encounter - Jovan Grewal - 11/13/2019 11:53 AM CST Pt called back to add to his previous message. Caller stated he has been searching everyday for a psychiatrist and can't find one. Pt is requesting a prescription just until he finds a psychiatrist Message routed to provider RUCTIONAL PARAPROFESSIONAL * Telephone Encounter - Corinna Patterson RN - 11/13/2019 11:08 AM INSTRUCTIONAL PARAPROFESSIONAL Pt calling requesting that you speak with MD regarding alprazolam as soon as possible for refill and return his call with results CB:[phone] Pharmacy: [place], [place] [phone] RUCTIONAL PARAPROFESSIONAL documented in this encounter Plan of Treatment Not on file documented as of this encounter Visit Diagnoses Not on filedocumented in this encounter
--- OUTSIDE RECORDS SUMMARY | 2024-09-10 03:44 | XMS_ITS | Encounter Summary ---
Author Organization [facility] Address [address] [place] [address] Care Team Providers Care Loader Demolder Name Role Phone Unavailable Primary Care Provider Unavailabl e Reason for Visit * Reason Onset Date Comments Advice Only 10/21/2019 Encounter Details Date Type Department Care Team (Late st Contact Info) Description 10/21/2019 Telephone [facility] [address] [facility] [address] [place] [address] Rama Torrez, NYA-VAMSI [address] OF [facility] [place] [address] Advice Only Social History Tobacco Use Types [...] Encounter - Rama Torrez, MELISA - 10/21/2019 11:12 PM ROD BUSTER pbx operator note. Received call via [facility] combining machine operator at 7:26pm. I did not have Epic access at the time of the call. Calling again concerning his low back pain, that started about 10 days ago. Notes he has taken tylenol, ibuprofen, used ice/heat, stretched and tried icy hot without relief. Tried a muscle relaxer hehad left over about 5 minutes ago- is going to see if it works. Notes he feels weak and the pain is worse with walking. I again encouraged him to go to the ED or UC for further evaluation if he felt his pain was not well controlled and supportive care not working. He then went off into a tangent about how some people want narcotic medications and do not actuallyneed them and then people who do need them for actual pain cannot get them and suffer for it. He also noted tramadol does not work well for him. I again encouraged him to go to the ED or UC for further evaluation if he felt back pain was worsening or hand any new or concerning symptoms. Verbalized understanding. MELISA Sparks BUSTER documented in this encounter Plan of Treatment Not on file documented as of this encounter Visit Diagnoses Not on filedocumented in this encounter
--- OUTSIDE RECORDS SUMMARY | 2024-09-10 03:44 | XMS_ITS | Encounter Summary ---
Author Organization [facility] Address [address] [facility] [place] [address] Care Team Providers Care Die Cast Patternmaker Name Role Phone Unavailable Primary Care Provider Unavailabl e Reason for Visit * Reason Onset Date Comments Congestion 10/28/2019 Encounter Details Date Type Department Care Team (Late st Contact Info) Description 10/28/2019 Telephone [facility] [address] [facility] [address] [place] [address] Bayron Bernal MD [address] OF [facility] INTERNAL MEDICINE [place], [place] [id number] Congestion Social History Tobacco Use Types Packs/Day Years [...] encounter Miscellaneous Notes * Telephone Encounter - Bayron Bernal MD - 10/28/2019 6:18 PM SUPERVISOR SHIPFITTERS Pt called regarding congestion in sinuses, ear fullness Seen in urgent care yesterday, given supportive treatment, no abx No fever or other change since yesterday Will give atrovent nasal spray for decongestant, continue with fluids and sudafed he is taking RVISOR SHIPFITTERS documented in this encounter Plan of Treatment Not on file documented as of this encounter Visit Diagnoses Not on filedocumented in this encounter
--- OUTSIDE RECORDS SUMMARY | 2024-09-10 03:44 | XMS_ITS | Encounter Summary ---
Author Organization [facility] Address [address] [place] [address] Care Team Providers Care Donor Relations Manager Name Role Phone Unavailable Primary Care Provider Unavailabl e Reason for Visit * Reason Onset Date Comments Reschedule Appointment 12/14/2019 Encounter Details Date Type Department Care Team (Late st Contact Info) Description 12/14/2019 Patient Outreach [facility] [address] [place] [phone] Angi Hamilton, RN Reschedule Appointment Social History Tobacco Use Types Packs/Day Years [...] Miscellaneous Notes * Telephone Encounter - Angi Hamilton, RN - 12/14/2019 2:01 PM CDT Called to reschedule patient's colonoscopy on 12/21/2019 due to COVID-19 pandemic. Colonoscopy for colonic mass. Offered to reschedule on 01/25/2020. Pt states I am not too fond of your [facility]. I am going to find new doctors and a new production supply equipment tender . I reconfirmed his wish to cancel this procedure. He said yes, cancel it CT of abd 04/2018 Findings: The lung bases are clear.?Diffuse fatty infiltration of the liver.?Cholecystectomy with no bile duct dilation.?Normal noncontrast appearance of the pancreas, spleen, and adrenal glands.?2 tiny nonobstructing right kidney stones and one on the left.?Left-sided stone is the largest measuring about 3-4 mm.?No urinary tract obstruction.?No enlarged lymph nodes or ascites.?Normal appendix.?Although the reported sigmoid abnormality is benign, degree of soft tissuefullness has increased.?Transverse dimension on the axial images is about 3.7 cm and the approximate length of the abnormality is 8 cm.?There is resultant asymmetric dilation and stool retention in the adjacent sigmoid and distal descending colon.?Some mild diffuse wall thickening could represent a component of stercoral colitis or muscular wall hypertrophy secondary to the sigmoid narrow ing.?More proximally, colon diameter and stool volume is normal.?Symmetric large fat-containing inguinal hernias. Impression: 1.?Fatty liver. 2.?Nonobstructing kidney stones. 3.?Mild size increase in a previously described sigmoid colon abnormality.?Adjacent colonic wall thickening and stool retention. ?? documented in this encounter Plan of Treatment Not on file documented as of this encounter Visit Diagnoses Not on filedocumented in this encounter
--- OUTSIDE RECORDS SUMMARY | 2024-09-10 03:44 | XMS_ITS | Encounter Summary ---
Author Organization [facility] Address [address] [facility] [place] [address] Care Team Providers Care Track Walker Name Role Phone Unavailable Primary Care Provider Unavailabl e Reason for Visit * Reason Onset Date Comments Medication Issue 12/06/2019 Encounter Details Date Type Department Care Team (Late st Contact Info) Description 12/06/2019 Telephone [facility] [address] [facility] [address] [place] [address] Radha Palafox APRN-CNP [address] OF [facility] [place] [phone] Medication Issue Social History Tobacco Use Types [...] Telephone Encounter - Radha Palafox APRN-CNP - 12/06/2019 2:53 PM CDT Called pharmacy to tell them that Mr Mcgee has been dismissed from our practice and therefore did not want to order new meds for him. They will make note of this, so they do not continue to call us with future issues. MELISA Diaz * Telephone Encounter - Umm Erickson RN - 12/06/2019 1:53 PM CDT Enoch licensed clinical pharmacy technician part of a program team from [employer], calling to inquire about starting patient on a maintenance asthma medication as patient is filling his albuterol monthly--last fill November 30; Enoch's call back # [phone]. [place] will cover Symbicort and Flovent documented in this encounter Plan of Treatment Not on file documented as of this encounter Visit Diagnoses Not on filedocumented in this encounter
--- OUTSIDE RECORDS SUMMARY | 2024-09-10 03:44 | XMS_ITS | Encounter Summary ---
Author Organization [facility] Address [address] [place] [address] Care Team Providers Care Asbestos Surveyor Name Role Phone Unavailable Primary Care Provider Unavailabl e Reason for Visit * Reason Onset Date Comments MEDICATION REFILL 11/15/2019 Encounter Details Date Type Department Care Team (Late st Contact Info) Description 11/15/2019 Refill [facility] [address] [facility] [address] [place] [address] Umm Erickson, SCROLL ASSEMBLER REFILL Social History Tobacco Use Types Packs/Day [...]
--- OUTSIDE RECORDS SUMMARY | 2024-09-10 03:44 | XMS_ITS | Encounter Summary ---
Author Organization [facility] Address [address] [facility] [place] [address] Care Team Providers Care Marker Shipments Name Role Phone Unavailable Primary Care Provider Unavailabl e Reason for Visit * Reason Onset Date Comments Advice Only 12/03/2019 Encounter Details Date Type Department Care Team (Late st Contact Info) Description 12/03/2019 Telephone [facility] [address] [place] [address] [place] [address] North Raza MD [address] OF [facility] [place] [address] Advice Only Social History Tobacco Use Types [...] encounter Miscellaneous Notes * Telephone Encounter - North Raza MD - 12/03/2019 7:27 PM CDT Asking about prescription Sent. Resent. I had told him at the time of the first call that it would be several hours before I would be at a computer to sent the prescription. documented in this encounter Plan of Treatment Not on file documented as of this encounter Visit Diagnoses Not on filedocumented in this encounter
--- OUTSIDE RECORDS SUMMARY | 2024-09-10 03:44 | XMS_ITS | Encounter Summary ---
Author Organization [facility] Address [address] [facility] [place] [address] Care Team Providers Care Dust Collector Attendant Name Role Phone Unavailable Primary Care Provider Unavailabl e Reason for Visit * Reason Onset Date Comments Medication Prior Auth Request 11/16/2019 Encounter Details Date Type Department Care Team (Late st Contact Info) Description 11/16/2019 Telephone [facility] [address] [facility] [address] [place] [address] Radha Palafox APRN-CNP [address] OF [facility] [place] [phone] Medication Prior Auth Request Social History Tobacco [...] Encounter - Radha Palafox APRN-CNP - 11/17/2019 6:34 PM BUS STARTER No documentation of why he should be on high dose Omeprazole. Ordered Omeprazole 20 mg daily. MELISA Diaz STARTER * Telephone Encounter - Remedios Catalan LPN - 11/17/2019 10:14 AM BUS STARTER PA for Omeprazole was denied by insurance. Pharmacy notified. Appeal info placed in providers box. STARTER * Telephone Encounter - Remedios Catalan LPN - 11/16/2019 1:28 PM BUS STARTER Insurance requires prior auth for Omeprazole. Prior auth request submitted on line at [employer]. Office notes submitted with request Yes. Waiting for insurance response. Cover My Meds jimenez:[id number] STARTER documented in this encounter Plan of Treatment Not on file documented as of this encounter Visit Diagnoses Not on filedocumented in this encounter
--- OUTSIDE RECORDS SUMMARY | 2024-09-10 03:45 | XMS_ITS | Encounter Summary ---
Author Organization [facility] Address [address] [facility] [place] [address] Care Team Providers Care Library Sales Consultant Name Role Phone Unavailable Primary Care Provider Unavailabl e Reason for Visit * Reason Onset Date Comments Med Question 10/18/2019 Med Question 10/19/2019 Order 10/20/2019 XRAY Follow-up 10/20/2019 Encounter Details Date Type Department Care Team ([facility] st Contact Info) Description 10/18/2019 Telephone [facility] [address] [facility] [address] [place] [address] Radha Palafox, COPIER TECHNICIAN-ALTITUDE CHAMBER TECHNICIAN [address] OF [facility] [place] [address] Med Question; Med Question; Order (XRAY); Follow-up Social History Tobacco Use Types Packs/Day [...] Telephone Encounter - Remedios Catalan LPN - 10/20/2019 2:05 PM EMERGENCY ROOM CLINICIAN Pt came to 207 window. Pt is demanding xrays be done before his appointment. Pt is demanding that the nurse call me about this. I came early to have this done. I thought you people were here to helppatients. I want this done before the appointment because I want the results now. GENCY ROOM CLINICIAN * Telephone Encounter - Lynne Mendes - 10/20/2019 1:47 PM CST Upon chart review, no new update message from INTERNATIONAL MARKETING EXECUTIVE Petzchen or xray order in system at this time. Outbound to pt to inform TN called pt to inform of above update and pt verbalized understanding. Pt reports [facility] nowand is going to go to office to see if can get an order for an Xray and then go to the lab to get labs drawn. No further questions or concerns at this time. CB# [phone] (home) Routed to provider for further review Routed to [facility] Nurse Communication for further review GENCY ROOM CLINICIAN * Telephone Encounter - Lynne Mendes - 10/20/2019 12:35 PM CST Upon chart review, TN checking for update from INTERNATIONAL MARKETING EXECUTIVE Petzchen to c/b pt. As of this time, no new update from INTERNATIONAL MARKETING EXECUTIVE Petrebekachen. Will continue to monitor for update. GENCY ROOM CLINICIAN * Telephone Encounter - Lynne Mendes - 10/20/2019 10:54 AM CST Outbound to [facility] Venus - unable to reach Upon chart review, Liz Catalan forwarded message to VENTURA Palafox for review. GENCY ROOM CLINICIAN * Telephone Encounter - Lynne Mendes - 10/20/2019 9:54 AM CST Pt calling in b/c he is coming in to office today for OV w/ INTERNATIONAL MARKETING EXECUTIVE Petdionicio @ 3:20pm and requesting an xray for kidney/left sided pain. Pt reports forgot to ask INTERNATIONAL MARKETING EXECUTIVE Vivienne yesterday during phone conversation for xray and is coming into city and would like to get xray before OV today so VENTURA Palafox canbe able to read xray before OV. Pt requesting a call back to know if he should come in early to get xray and verbalized will be getting labs drawn too. TN informed pt we will do our best to c/b pt and this TN informed pt she would do her best to c/b pt in time but d/t time constraints TN informed pt he can c/b if he would like for status on update if xray will or will not be ordered so he can make travel plans. Pt verbalized understanding Pt requesting xray b/c he wants to be prepared for OV b/c of such short OV times and states I needmore than 20min w/ the doctor . CB# [phone] (home) Routed to provider for further review HIGH PRIORITY GENCY ROOM CLINICIAN * Telephone Encounter - Radha Palafox APRN-CNP - 10/19/2019 1:18 PM EMERGENCY ROOM CLINICIAN Phone call--multiple vague complaints of not feeling well. Tired. Urinating a lot. BS are running 110--190. Is not taking Januvia which he claims gave him headaches and wasn't getting any benefit . Back pain--left sided. Told by chiropractor that it might be his kidney. Wet bed last night. Feels confused. Feels hot and cold but unable to check due to not having thermometer. Has appt with psychiatrist tomorrow. Claims he will keep appt tomorrow. MELISA Diaz GENCY ROOM CLINICIAN * Telephone Encounter - Jovan Grewal - 10/19/2019 11:06 AM CST Pt called back again, stated the provider never got back to him. Reports he had some questions about taking Azo, and he spoke to the pharmacist, and reports he took the medication. Says he has been having trouble with wetting the bed , and woke up this am with a really bad headache. Caller inquired if that was a side effect of the Azo, informed that TN was not aware of that information. Caller st ated that his provider was suppose to get him a urologist, TN informed the caller that all of this information could be discussed at his upcoming appt tomorrow. Caller continues to request to speak with the provider today, call back number [phone] provided Message routed to provider GENCY ROOM CLINICIAN * Telephone Encounter - Mallory Flores RN - 10/18/2019 10:36 AM CST Patient feels distorted Clarified that he means a little confused 2 weeks ago he had pink urine and blood Went to ER and no findings He didn't have UTI He took 10 days of cipro and flagyl for diverticulitis. Done with that Wednesday and today increased urination and discomfort. Patient wants to know if he can take AZO for symptoms. He also has cold and left ear pain He doesn't want to come in for ACV due to weather. He will keep appt on Wednesday and advised him to keep this Feels shaky 115 blood sugar this morning He is trying to get nurse to tell him why he is shaky Last time he felt like this he had to take xanax. [phone] GENCY ROOM CLINICIAN documented in this encounter Plan of Treatment Not on file documented as of this encounter Visit Diagnoses Not on filedocumented in this encounter
--- OUTSIDE RECORDS SUMMARY | 2024-09-10 03:45 | XMS_ITS | Encounter Summary ---
Author Organization [facility] Address [address] [facility] [place] [address] Care Team Providers Care Loan Examiner Name Role Phone Alcon Munoz MD Primary Care Provider [phone] Reason for Visit * Reason Onset Date Comments Question 07/19/2012 Encounter Details Date Type Department Care Team (Late st Contact Info) Description 07/19/2012 Telephone [facility] - Family Medicine [address] [place] [address] [place] [address] [place] [address] Question Social History Tobacco Use Types Packs/Day Years Used Date Smoking Tobacco: Former Alcohol Use Standard Drinks/Week Comments No 0 (1 standard drink = 0.6 oz pur e alcohol) Sex and Gender Information Value Date Recorded Sex Assigned at Not on file Gender Identity Not on file Sexual Orientation Not on file documented as of this encounter Miscellaneous Notes * Telephone Encounter - Alcon Munoz MD - 07/19/2012 7:25 PM CST Exchange call 630pm. Still having pleuritic pain but no SOB, chest pain or fevers. Vicodin helps some. Speaking comfortably over the phone. Rx medrol dose fredi. Discussed common side effects. RITY THREAT ANALYST * Telephone Encounter - Alcon Munoz MD - 07/19/2012 3:54 PM CST Please obtain name of sleep center and I will write an order for him. RITY THREAT ANALYST * Telephone Encounter - Rick Loyabarbara Lawrence - 07/19/2012 3:48 PM CST There is a sleep study facility near him would like a referral to there, please call patient. RITY THREAT ANALYST documented in this encounter Plan of Treatment Not on file documented as of this encounter Visit Diagnoses Diagnosis Pleurisy- Primary Pleurisy without mention of effusion or current tuberculosis documented in this encounter Care Teams Loan Examiner Relationship Specialty Start Date End Date Alcon Munoz MD PCP - General Family Medicine 07/05/12 02/01/13 documented as of this encounter
--- OUTSIDE RECORDS SUMMARY | 2024-09-10 03:45 | XMS_ITS | Encounter Summary ---
Author Organization [facility] Address [address] [place] [address] Care Team Providers Care Transcript Clerk Name Role Phone Alcon Munoz MD Primary Care Provider None, Pcp Primary Care Provider Jessica Somers MD Primary Care Provider [phone] Encounter Details Date Type Department Care Team (Latest Contact Info) Description 07/19/2012 Emergency Department [facility] [address] [place] [address] Vick Magdaleno MD [address] [place] [address] Discharge Disposition: Home or Self Care Social [...] Procedure Name Priority Date/Time Associated Diagnosis Comments EKG 12-LEAD STAT 07/28/2012 1:29 AM APPRENTICE PAINTER BRUSH documented in this encounter Results * EKG 12-LEAD (07/28/2012 1:29 AM APPRENTICE PAINTER BRUSH) Narrative [facility] - 07/28/2012 1:29 AM APPRENTICE PAINTER BRUSH A scan was deleted from the Results section by Irene Carbajal [[id number]] on 07/28/2012 at ??1:30 AM (File: [id number]) Procedure Note Provider, MD Rachael - 02/18/2018 A scan was deleted from the Results section by Irene Carbajal [[id number]] on 07/28/2012t 1:30 AM (File:[id number]) Cata Aleman MD ECG ORDERABLES [facility] documented in this encounter Visit Diagnoses Diagnosis Chest pain documented in this encounter Care Teams Transcript Clerk Relationship Specialty Start Date End Date Alcon Munoz MD PCP - General Family Medicine 07/05/12 02/01/13 None, Pcp No Address Look for [place] [phone] PCP - General Nurse Practitioner 02/02/13 Jessica Waters MD [address] [facility] [address] [facility] [address] [place] [phone] PCP - General Internal Medicine 07/29/15 07/17/19 documented as of this encounter
--- OUTSIDE RECORDS SUMMARY | 2024-09-10 03:45 | XMS_ITS | Encounter Summary ---
Author Organization [facility] Address [address] [place] [address] Care Team Providers Care Water And Sewer Systems Supervisor Name Role Phone Alcon Munoz MD Primary Care Provider [phone] Reason for Visit * Reason Onset Date Comments Update 07/08/2012 Encounter Details Date Type Department Care Team (Late st Contact Info) Description 07/08/2012 Telephone [facility] Medical Group - Family Medicine [address] [place] [address] [place] [address] [place] [address] Update Social History Tobacco Use Types Packs/Day Years Used Date Smoking Tobacco: Former Alcohol Use Standard Drinks/Week Comments No 0 (1 standard drink = 0.6 oz pur e alcohol) Sex and Gender Information Value Date Recorded Sex Assigned at Not on file Gender Identity Not on file Sexual Orientation Not on file documented as of this encounter Miscellaneous Notes * Telephone Encounter - Alexandria Gunn MA - 07/12/2012 7:48 AM CDT Pulled the samples for the pt. He will be in to pick-up. done * Telephone Encounter - Alcon Munoz MD - 07/11/2012 10:13 PM CDT Returned exchange call. Apparently went to 2 different ERs since last office visit with complaint of rib pain. cxr was clear and treated for bronchitis and pleurisy with naproxen and cytotec for GI protection. Patient reports occ dark stool and wonders if due to naproxen. I offered celebrex but he states cannot afford so I offered free samples from the office. Patient states he will come by tomorrow. Lastly reports GI spasms which levsin in the past has helped. Levsin called in. Follow up if symptoms fail to resolve or worsening. Orders Placed This Encounter ??? hyoscyamine (LEVSIN) 0.125 MG tablet Sig: Take 1 Tab by mouth every 4 hours as needed for Spasms. Dispense: 30 Tab Refill: 0 Please give him samples of celebrex 200mg and to take 1 tablet twice daily. Give enough to last a week. Thanks. * Telephone Encounter - Alcon Munoz MD - 07/11/2012 5:31 PM CDT No answer. Left message on VM to call office. Otherwise I will try again tomorrow. * Telephone Encounter - Arely Loya - 07/11/2012 1:25 PM CDT Patient called back today saying that he has pleurisy and bronchitis. Please call patient. * Telephone Encounter - Alexandria Gunn MA - 07/08/2012 1:08 PM CDT Pt went to ER last night & Dx: with Bronchitis wanted to know if anything should be changed, Ptwould like for you to call him. Still not feeling too great. documented in this encounter Plan of Treatment Not on file documented as of this encounter Visit Diagnoses Diagnosis Pleurisy Pleurisy without mention of effusion or current tuberculosis Abdominal spasms Abdominal pain, unspecified site documented in this encounter Care Teams Water And Sewer Systems Supervisor Relationship Specialty Start Date End Date Alcon Munoz MD PCP - General Family Medicine 07/05/12 02/01/13 documented as of this encounter
--- OUTSIDE RECORDS SUMMARY | 2024-09-10 03:45 | XMS_ITS | Encounter Summary ---
Author Organization [facility] Address [address] [facility] [place] [address] Care Team Providers Care Sales Professional Name Role Phone Unavailable Primary Care Provider Unavailabl e Reason for Visit * Reason Onset Date Comments Question 08/18/2019 Anxiety 08/18/2019 Encounter Details Date Type Department Care Team (Late st Contact Info) Description 08/18/2019 Telephone [facility] [address] [facility] [address] [place] [address] Radha Palafox APRN-CNP [address] OF [facility] [place] [phone] Question; Anxiety Social History Tobacco Use Types Packs/Day Years [...] Telephone Encounter - Radha Palafox APRN-CNP - 08/18/2019 5:42 PM STATE MANAGER Phone call. He thinks his diabetes is causing him to feel confused. Talks to different people and they tell him that BS of 300 can cause problems with mood. Has not taken Metformin yet. No energy. Told him to try the Metformin and keep appt. MELISA Diaz E MANAGER * Telephone Encounter - Mallory Flores RN - 08/18/2019 3:04 PM CST He apologized for missing call And his phone is in his pocket Did advise Called him back and got his voice mail. Ordered XR due to only needing to take 1 X per day and thought this would cause him less problems. MELISA Diaz ?? He still wants a call back to talk about other issues E MANAGER * Telephone Encounter - Radha Palafox APRN-CNP - 08/18/2019 2:33 PM STATE MANAGER Called him back and got his voice mail. Ordered XR due to only needing to take 1 X per day and thought this would cause him less problems. MELISA Diaz E MANAGER * Telephone Encounter - Mallory Flores RN - 08/18/2019 12:59 PM CST Paytietn calling again wants to know why you prescribed XR? Please call CB [phone] E MANAGER * Telephone Encounter - Mallory Flores RN - 08/18/2019 9:00 AM CST Patient calling again He wants to speak with VENTURA Palafox About a question about metformin Also has questions abut lightheaded and dizziness and diabetes. Today please [phone] E MANAGER documented in this encounter Plan of Treatment Not on file documented as of this encounter Visit Diagnoses Not on filedocumented in this encounter
--- OUTSIDE RECORDS SUMMARY | 2024-09-10 03:45 | XMS_ITS | Encounter Summary ---
Author Organization [facility] Address [address] [place] [place] [address] Care Team Providers Care Flask Fitter Name Role Phone Alexandria Beard MD Primary Care Provider [phone] Encounter Details Date Type Department Care Team (Latest Contact Info) Description 06/08/2009 8:26 AM CDT - 06/08/2009 9:28 AM CDT Hospital Encounter ER at [facility] [place] [address] [place] [id number] Teddy Lopez MD [address] [place] [address] Discharge Disposition: Home or Self Care Social History Tobacco Use Types Packs/Day Years Used Date Smoking Tobacco: Never Alcohol Use Standard Drinks/Week Comments No 0 (1 standard drink = 0.6 oz pur e alcohol) Sex and Gender Information Value Date Recorded Sex Assigned at Not on file Gender Identity Not on file Sexual Orientation Not on file documented as of this encounter Medications at Time of Discharge Medication Sig Dispensed Refills Start Date End Date LEXAPRO 10 MG tablet Take 10 mg by mouth daily. 01/30/2012 PRILOSEC PO Take by mouth as needed 12/05/2009 XANAX 2 MG tablet Take 2 mg by mouth 3 times daily. Ran out of script 12/05/2009 documented as of this encounter Plan of Treatment Not on file documented as of this encounter Visit Diagnoses Not on filedocumented in this encounter Care Teams Flask Fitter Relationship Specialty [place] [id number] [facility] [address] [place] [address] PCP - General 06/08/09 11/02/09 documented as of this encounter
--- OUTSIDE RECORDS SUMMARY | 2024-09-10 03:45 | XMS_ITS | Encounter Summary ---
Author Organization [facility] Address [address] [facility] [place] [address] Care Team Providers Care Foot Roentgenologist Name Role Phone None, Pcp Primary Care Provider Unavailabl e Reason for Visit * Reason Comments Pain Abdominal Pt reports that sxs began 3 days ago. Is concerned since he has diverticulosis, and believes is having complications with that. Also reports that he passed a bit of bright red blood in stool. Pn located in left lower quad. Encounter Details Date Type Department Care Team (Late st Contact Info) Description 02/02/2013 1:52 AM CDT - 02/02/2013 7:09 AM CDT Emergency ER at [address] [address] [place] [address] [facility] Medicine [place], [place] [id number] Abdominal pain, acute; Colitis Discharge Disposition: Home or Self Care Social [...] Sign Reading Time Taken Comments Blood Pressure 136/78 02/02/2013 6:29 AM CDT Pulse 96 02/02/2013 6:29 AM CDT Temperature 36.9 ??C (98.4 ??F) 02/02/2013 4:35 AM CD T Respiratory Rate 18 02/02/2013 6:29 AM CDT Oxygen Saturation 98% 02/02/2013 6:29 AM CDT Inhaled Oxygen Concentration - - Weight 104.3 kg (230 lb) 02/02/2013 1:47 AM CDT Height 188 cm (6' 2 ) 02/02/2013 1:47 AM CDT Body Mass Index 29.53 02/02/2013 1:47 AM CDT documented in this encounter Discharge Instructions * Discharge Instructions* Miguel Jesus DO - 02/02/2013 6:52 AM CDT Colitis Colitis is inflammation of the colon. Colitis can be a short-term or long- standing (chronic) illness. Crohn's disease and ulcerative colitis are 2 types of colitis which are chronic. They usually require lifelong treatment. CAUSES There are many different causes of colitis, including: ?? Viruses. ?? Germs (bacteria). ?? Medicine reactions. SYMPTOMS ?? Diarrhea. ?? Intestinal bleeding. ?? Pain. ?? Fever. ?? Throwing up (vomiting). ?? Tiredness (fatigue). ?? Weight loss. ?? Bowel blockage. DIAGNOSIS The diagnosis of colitis is based on examination and stool or blood tests. X- rays, CT scan, and colonoscopy may also be needed. TREATMENT Treatment may include: ?? Fluids given through the vein (intravenously). ?? Bowel rest (nothing to eat or drink for a period of time). ?? Medicine for pain and diarrhea. ?? Medicines (antibiotics) that kill germs. ?? Cortisone medicines. ?? Surgery. HOME CARE INSTRUCTIONS ?? Get plenty of rest. ?? Drink enough water and fluids to keep your urine clear or pale yellow. ?? Eat a well-balanced diet. ?? Call your caregiver for follow-up as recommended. SEEK IMMEDIATE MEDICAL CARE IF: ?? You develop chills. ?? You have an oral temperature above 102?? F (38.9?? C), not controlled by medicine. ?? You have extreme weakness, fainting, or dehydration. ?? You have repeated vomiting. ?? You develop severe belly (abdominal) pain or are passing bloody or tarry stools. MAKE SURE YOU: ?? Understand these instructions. ?? Will watch your condition. ?? Will get help right away if you are not doing well or get worse. Document Released: 10/07/2005 Document Revised: 05/11/2012 Document Reviewed: 01/02/2011 ExitCare?? Patient Information ??2012 [employer].Clear Liquid Diet Your caregiver wants you to be on a clear liquid diet until your condition gets better. If you havebeen vomiting, do not eat or drink anything for at least one hour. Then start with ice chips and small sips of water. If you can keep the water down, then you may have any of the following: ?? Those foods that are liquid or will become liquid at body temperature. ?? Liquids you can see through. ?? Vitamin water, Non-carbonated soft drinks with no caffeine. ?? Fruit juices (apple and grape are good). ?? Clear broth, soups, or bouillon. ?? Clear gelatin desserts (jello) or popsicles. Things to avoid: ?? Caffeinated drinks. ?? Carbonated drinks. ?? Dairy products. ?? Solid foods ?? Meat. ?? Other fatty foods. SPECIAL NOTES This diet is very restrictive, providing some electrolytes and a small amount of calories. Use should be limited to very short periods, and only under the advice or supervision of your physician or dietitian. CONTACT YOUR CAREGIVER: ?? For follow-up as directed ?? If you are not getting better or are getting worse. ?? If you are unable to keep anything down, including clear liquids. ?? If you have any other questions or concerns. Document Released: 10/07/2005 Document Re-Released: 11/26/2009 ExitCare?? Patient Information ??2010 [employer]. * Discharge Instructions* Document, Scanned - 02/08/2013 1:39 PM CDT documented in this encounter Medications at Time of Discharge Medication Sig Dispensed Refills Start Date End Date ALPRAZolam (XANAX) 2 MG tablet Take 1 Tab by mouth 2 times daily as needed for Anxiety. 40 Tab 0 07/18/2012 11/09/2019 amoxicillin-clavulanate (AUGMENTIN) 875-125 MG tablet Take 1 Tab by mouth every 12 hours for 10 days. For 10 days. 20 Tab 0 02/02/2013 02/12/2013 ciprofloxacin (CIPRO) 500 MG tablet Take 500 mg by mouth 2 times daily. 07/30/2015 citalopram (CELEXA) 10 MG tablet Take 10 mg by mouth once daily. 08/01/2019 hydrocodone-acetaminoph en (VICODIN) 5-500 MG tablet Take 1 Tab by mouth nightly as needed for Pain. 20 Tab 0 08/03/2012 09/11/2013 hyoscyamine (LEVSIN) 0.125 MG tablet Take 1 Tab by mouth every 4 hours as needed for Spasms. 30 Tab 0 07/11/2012 10/24/2016 hyoscyamine 0.125 MG tablet Dissolve 1 Tab under the tongue every 4 hours as needed for Spasms. 20 Tab 0 02/02/2013 10/24/2016 methylPREDNISolone (MEDROL DOSEPAK) 4 MG tablet Take by mouth as directed. 21 Packet 0 08/03/2012 09/11/2013 metroNIDAZOLE (FLAGYL) 500 MG tablet Take 1 Tab by mouth 3 times daily for 10 days. 30 Tab 0 02/02/2013 02/12/2013 metroNIDAZOLE (FLAGYL) 500 MG tablet Take 500 mg by mouth 3 times daily. 07/30/2015 oxycodone-acetaminophen (PERCOCET) 5-325 MG tablet Take 1 Tab by mouth every 4 hours as needed for Pain. 20 Tab 0 02/02/2013 09/11/2013 pantoprazole (PROTONIX) 40 MG packet Take 40 mg by mouth once daily. 09/11/2013 promethazine (PHENERGAN) 25 MG tablet Take 1 Tab by mouth every 6 hours as needed for Nausea/Vomiting. 10 Tab 0 02/02/2013 10/24/2016 promethazine (PHENERGAN) 25 MG tablet Take 25 mg by mouth as needed. 10/24/2016 documented as of this encounter ED Notes * Miguel Jesus DO - 02/02/2013 3:40 AM CDT Provider contact with the patient: 02/02/2013 03:40 Carlos Kelly [id number] [facility] History Chief Complaint Patient presents with ??? Pain Abdominal Pt reports that sxs began 3 days ago. Is concerned since he has diverticulosis, and believes is having complications with that. Also reports that he passed a bit of bright red blood in stool. Pn located in left lower quad. Pain Abdominal The history is provided by the patient. This is a new problem. Episode onset: 3 days ago. The problem occurs constantly. The problem has been gradually worsening. The pain is located in the LLQ and suprapubic region. The quality of the pain is cramping, aching and sharp. The pain is moderate. Associated symptoms include hematochezia (pt states he has had some small amt of bright red blood when hewipes), nausea and constipation. Pertinent negatives include anorexia, fever, diarrhea, melena, vomiting, dysuria and frequency. Nothing worsens the pain. The pain is relieved by nothing. Past medical history comments: Diverticulitis. Risk factors for an abdominal aortic aneurysm include over 40 years old. Past Medical History Diagnosis Date ??? Depression ??? Anxiety ??? Panic attacks ??? Diverticulitis ??? GERD (gastroesophageal reflux disease) ??? Diverticulosis of the colon Past Surgical History Procedure Date ??? Cholecystectomy Family History Problem Relation Age of Onset ??? Stroke Father ??? Cirrhosis Mother ??? Bipolar Disorder Mother ??? Depression Mother ??? Alcohol abuse Father History Social History ??? Marital Status: Spouse Name: N/A Number of Children: N/A ??? Years of Education: N/A Occupational History ??? Not on file. Social History Main Topics ??? Smoking status: Former Smoker ??? Smokeless tobacco: Never Used ??? Alcohol Use: No ??? Drug Use: No ??? Sexually Active: Not Currently Other Topics Concern ??? Not on file Social History Narrative ??? No narrative on file Review of Systems Review of Systems Constitutional: Negative for fever and chills. Respiratory: Negative for shortness of breath. Cardiovascular: Negative for chest pain. Gastrointestinal: Positive for nausea, abdominal pain, constipation, blood in stool and hematochezia (pt states he has had some small amt of bright red blood when he wipes). Negative for vomiting, diarrhea, melena and anorexia. Feels like when he has diverticulitis Genitourinary: Negative for dysuria and frequency. Skin: Negative for rash. All other systems reviewed and are negative. Physical Exam BP 155/85 Pulse 105 Temp 98.9 ??F Resp 16 Ht 6' 2 (1.88 m) Wt 230 lb (104.327 kg) BMI 29.53 kg/m2 SpO2 98% Physical Exam Nursing note and vitals reviewed. Constitutional: He is oriented to person, place, and time and well-developed, well-nourished, and in no distress. No distress. HENT: Head: Normocephalic and atraumatic. Mouth/Throat: Oropharynx is clear and moist. Eyes: Conjunctivae and EOM are normal. Right eye exhibits no discharge. Left eye exhibits no discharge. No scleral icterus. Neck: Normal range of motion. Neck supple. Cardiovascular: Normal rate, regular rhythm and normal heart sounds. No murmur heard. Pulmonary/Chest: Effort normal and breath sounds normal. No respiratory distress. Abdominal: Soft. Bowel sounds are normal. He exhibits no distension and no mass. There is tenderness in the suprapubic area and left lower quadrant. There is no rigidity, no rebound, no guarding and no CVA tenderness. Musculoskeletal: Normal range of motion. He exhibits no edema and no tenderness. Neurological: He is alert and oriented to person, place, and time. No cranial nerve deficit. No gross neurological deficits noted. Skin: Skin is warm and dry. Psychiatric: Affect normal. Medications Current Outpatient Prescriptions Medication Sig Dispense Refill ??? amoxicillin-clavulanate (AUGMENTIN) 875-125 MG tablet Take 1 Tab by mouth every 12 hours for 10days. For 10 days. 20 Tab 0 ??? metroNIDAZOLE (FLAGYL) 500 MG tablet Take 1 Tab by mouth 3 times daily for 10 days. 30 Tab 0 ??? oxycodone-acetaminophen (PERCOCET) 5-325 MG tablet Take 1 Tab by mouth every 4 hours as needed for Pain. 20 Tab 0 ??? promethazine (PHENERGAN) 25 MG tablet Take 1 Tab by mouth every 6 hours as needed for Nausea/Vomiting. 10 Tab 0 ??? hyoscyamine 0.125 MG tablet Dissolve 1 Tab under the tongue every 4 hours as needed for Spasms.20 Tab 0 ??? ciprofloxacin (CIPRO) 500 MG tablet Take 500 mg by mouth 2 times daily. ??? metroNIDAZOLE (FLAGYL) 500 MG tablet Take 500 mg by mouth 3 times daily. ??? hydrocodone-acetaminophen (VICODIN) 5-500 MG tablet Take 1 Tab by mouth nightly as needed for Pain. 20 Tab 0 ??? methylPREDNISolone (MEDROL DOSEPAK) 4 MG tablet Take by mouth as directed. 21 Packet 0 ??? ALPRAZolam (XANAX) 2 MG tablet Take 1 Tab by mouth 2 times daily as needed for Anxiety. 40 Tab 0 ??? hyoscyamine (LEVSIN) 0.125 MG tablet Take 1 Tab by mouth every 4 hours as needed for Spasms. 30Tab 0 ??? promethazine (PHENERGAN) 25 MG tablet Take 25 mg by mouth as needed. ??? pantoprazole (PROTONIX) 40 MG packet Take 40 mg by mouth once daily. ??? citalopram (CELEXA) 10 MG tablet Take 10 mg by mouth once daily. Procedures Procedures EKG Interpretation Lab/SPO2 Interpretation Results for orders placed during the hospital encounter of 02/02/13 CBC W AUTO DIFFERENTIAL Component Value Range WBC 6.1 4.4-10.7 x10^9/L RBC 5.68 (*) 3.80-5.40 x10^12/L Hgb 15.0 12.0-17.6 g/dL HCT 42.2 35.2-51.7 % MCV 74.3 (*) 80.7-98.3 fl MCH 26.4 (*) 26.7-34.0 pg MCHC 35.5 30.8-35.9 gm/dL Plt Ct 182 153-416 x10^9/L RDW-CV 14.8 12.1-14.9 % MPV 10.2 9.4-12.9 fl Neutro 59 44-73 % Lymph 28 20-43 % [place] 10 5-13 % Eos 3 0-6 % Baso 1 0-2 % Immature Grans 0.3 0-1 % Neutro Abs 3.57 2.01-7.14 x10^9/L Lymph Abs 1.68 1.07-3.94 x10^9/L [place] Abs 0.58 0.26-1.07 x10^9/L Eosin Abs 0.17 0-0.47 x10^9/L Baso Abs 0.03 0-0.08 x10^9/L NRBC Auto 0 LIPASE BLOOD Component Value Range Lipase 277 73-393 U/L COMPREHENSIVE METABOLIC PANEL Component Value Range Glucose 108 (*) 74-106 mg/dL Sodium 142 136-145 mmol/L Potassium 3.5 3.5-5.1 mmol/L Chloride 102 98-107 mmol/L CO2 31 22-31 mmol/L Calcium 9.4 8.5-10.1 mg/dL Anion Gap 9 5-15 mmol/L BUN 8 7-21 mg/dL Creatinine 0.76 0.50-1.30 mg/dL eGFR by MDRD >60 >60 ml/min/1.73m2 eGFR by MDRD AFR AMER >60 >60 ml/min/1.73m2 Alk Phos 88 38-126 U/L ALT/SGPT 96 (*) 12-78 U/L AST/SGOT 67 (*) 5-40 U/L Protein Total 7.7 6.4-8.2 gm/dL Albumin 3.6 3.4-5.0 gm/dL Bili Total 1.0 0.2-1.0 mg/dL URINALYSIS ROUTINE W/REFLEX TO CULTURE Component Value Range Color UA Yellow Straw, Yellow, Dark Yellow Clarity UA Clear Specific Neon UA 1.006 1.005-1.030 pH UA 6.5 5.0-8.0 Protein UA Negative Negative Blood UA Negative Negative Leukocyte UA Negative Negative Nitrite UA Negative Negative Glucose UA Negative Negative Ketone UA Negative Negative Bili UA Negative Negative Urobilinogen UA 0.2 0.1-1.0 EU/dL WBC UA Auto 0-2 0-2, 2-5 #/hpf RBC UA Auto 2-5 0-2, 2-5 #/hpf EPI CELLS UA Auto 0-2 0-2, 2-5 #/hpf BACTERIA UA Auto None seen None seen Urine Microscopy Urine microscopy not indicated Reflex Status Culture not indicated CT ABDOMEN AND PELVIS NON IV CONTRAST (Results Pending) [facility] Specializing in after-hours teleradiology PRELIMINARY REPORT [facility] Patient Name: CARLOS KELLY Age: 42 Patient MR NO: [id number] Referring Doctor: Miguel Jesus Patient Location: Emergency Department CLINICAL INDICATION: Per Chart sxs began 3 days ago. diverticulosis, bright red blood in stool. Pnlocated in left lower quad. IV contrast Allergy, Hx-GERD + Anxiety + CHOLECYSTECTOMY, APPY In CT ABDPELVIS w/o C 1. No focal air space disease within the visualized lung bases. 2. Prior cholecystectomy. 3. Fatty infiltration of the liver. 4. At least one nonobstructing left renal calculus is noted. No hydronephrosis. No ureteral calculus. 5. Normal appendix. 6. Within the left lower quadrant involving the distal descending and proximal sigmoid colon is a thickwalled loop of colon with infiltration of the surrounding fat. No significant diverticula are appreciated in this area to suggest acute diverticulitis. The appearance is more suggestive of an areaof colitis which is presumably infectious or inflammatory in nature. 7. No resultant bowel obstruction. 8. No free air is identified to suggest perforation. 9. No abscess. 10. No significant pelvic free fluid is noted. To Talk to Radiologist [phone] or [phone] Progress Notes ED Course Medical Decision Making I have reviewed the: Nursing Notes and Vitals. I have interpreted the following results: Labs and Oxygen Saturation. Orders Placed This Encounter ??? CT ABDOMEN AND PELVIS NON IV CONTRAST ??? CBC W AUTO DIFFERENTIAL ??? LIPASE BLOOD ??? COMPREHENSIVE METABOLIC PANEL ??? URINALYSIS ROUTINE W/REFLEX TO CULTURE ??? ondansetron (disintegrating) (ZOFRAN ODT) tablet 4 mg ??? ketorolac (TORADOL) injection 60 mg ??? amoxicillin-clavulanate (AUGMENTIN) 875-125 MG tablet ??? metroNIDAZOLE (FLAGYL) 500 MG tablet ??? oxycodone-acetaminophen (PERCOCET) 5-325 MG tablet ??? promethazine (PHENERGAN) 25 MG tablet ??? hyoscyamine 0.125 MG tablet Clinical Impression Final diagnoses: Abdominal pain, acute Colitis 6:52 AM Rechecked pt - pt is feeling slightly better. I offered admission for the colitis but pt would rather try to treat this at home. He would like to take Cipro but I noticed that he has an allergy to Cipro and will not prescribe that until he corrects his allergy list. I have explained that the combination I am prescribing will treat colitis most of the time. Pt is medically stable for d/c home at this time. I have given the patient instructions regarding his diagnosis, expectations, follow up, and return precautions. I explained to the patient that emergent conditions may arise and to return to the ER for new, worsening, or any persistent conditions. I've explained the importance of following up with his doctor--Pcp None--(or the referral physician) as instructed. The patient verbalized understanding of the discharge instructions. Diagnosis: Final diagnoses: Abdominal pain, acute Colitis New Medications: New Prescriptions AMOXICILLIN-CLAVULANATE (AUGMENTIN) 875-125 MG TABLET Take 1 Tab by mouth every 12 hours for 10 days. For 10 days. HYOSCYAMINE 0.125 MG TABLET Dissolve 1 Tab under the tongue every 4 hours as needed for Spasms. METRONIDAZOLE (FLAGYL) 500 MG TABLET Take 1 Tab by mouth 3 times daily for 10 days. OXYCODONE-ACETAMINOPHEN (PERCOCET) 5-325 MG TABLET Take 1 Tab by mouth every 4 hours as needed for Pain. PROMETHAZINE (PHENERGAN) 25 MG TABLET Take 1 Tab by mouth every 6 hours as needed for Nausea/Vomiting. I have advised the patient to follow-up with: Antonia Moore MD [address] [place], [place] [id number] Schedule an appointment as soon as possible for a visit in 2 days Disposition: Discharged 02/02/2013 6:52 AM * Alba Boyle RN - 02/02/2013 3:21 AM CDT This RN entered room to do an assessment and IV, stuck pt in left AC, line blew, pt then refused roro stuck where I saw a good vein and requested to be stuck in the right AC. I explained to pt that I didn't see or feel a good vein but assured him that I could obtain an IV in either hand. Pt refused, labs drawn and sent. Dr Jesus aware and is now at bedside at 0425 documented in this encounter Miscellaneous Notes * Miscellaneous Scans - Document, Scanned - 02/08/2013 2:53 PM CDT documented in this encounter Plan of Treatment Not on file documented as of this encounter Procedures Procedure Name Priority Date/Time Associated Diagnosis Comments CT ABDOMEN PELVIS WO CONTRAST STAT 02/02/2013 4:57 AM CDT Abdominal pain, acute COMPREHENSIVE METABOLIC PANEL STAT 02/02/2013 4:18 AM CDT LIPASE BLOOD STAT 02/02/2013 4:18 AM CDT URINALYSIS REFLEX MICROSCOPIC REFLEX CULTURE STAT 02/02/2013 3:31 AM CDT CBC W AUTO DIFFERENTIAL STAT 02/02/2013 3:28 AM CDT documented in this encounter Results * CT ABDOMEN AND PELVIS NON IV CONTRAST (02/02/2013 4:57 AM CDT) Anatomical Region Laterality Modality Abdomen, Pelvis Computed Tomogra phy 02/02/2013 9:46 AM CDT Impressions 02/02/2013 11:13 AM CDT The wall of the colon is thickened starting in the mid descending colon and extending into the sigmoid. There is also a moderate amount of stool in the descending colon proximal to the sigmoid. The descending colon is more distended than on the previous study from September 24, 2007. On the prior study, the patient was suspected to have diverticulitis. From the current findings, I cannot exclude a partial obstruction at the proximal sigmoid location. Close correlation with the patient's clinical evaluation is needed because a colon carcinoma as well as diverticula related strictures can have a similar appearance by CT. The abnormalities in the sigmoid colon are at the same location as on the September 24, 2007 examination. We would be happy to review the images with you. Hepatic steatosis is present, this looks worse than on the prior study. Please see above for other findings. Narrative 02/02/2013 11:13 AM CDT EXAMINATION: NONCONTRAST ABDOMEN AND PELVIC CT INDICATION: Left lower abdominal pain and blood in the stools starting 3 days ago. GERD. Prior cholecystectomy. TECHNIQUE: Noncontrast CT images of the abdomen and pelvis were performed. ??The ?? stone protocol ??without IV contrast and without oral contrast was requested for this examination. FINDINGS: CT ABDOMEN: ??A 4 mm calculus is noted in the left kidney. This was present on the prior study from September 24, 2007. There is no obstruction. The wall of the descending colon is thickened and there is paracolic edema distally. The wall thickening starts in the mid descending colon inferior to the spleen. This process extends to the proximal sigmoid colon. Several diverticula can be seen in the left colon. The small bowel is not dilated. Surgical clips are visible in the right upper quadrant consistent with a history of prior cholecystectomy. CT density of the liver is slightly lower than the spleen. ??The liver, spleen and pancreas have a homogeneous CT density but cannot be fully evaluated on this limited protocol exam. ??There is no free fluid in the abdomen. ?? CT PELVIS: ??No calcified stones can be seen in the course of the distal ureters. ??No pelvic mass is present. ??No free fluid can be identified in the pelvis. The bladder is smooth in outline. The dome of the bladder is elongated and the wall may be thickened. A similar pattern can be seen on the previous study from September 24, 2007. Both inguinal canals are enlarged but only contain adipose tissue similar to the September 24, 2007 examination. [facility] interpreted the exam and sent a preliminary report. Procedure Note Taran Sexton MD - 02/02/2013 EXAMINATION: NONCONTRAST ABDOMEN AND PELVIC CT INDICATION: Left lower abdominal pain and blood in the stools starting 3 days ago. GERD. Prior cholecystectomy. TECHNIQUE: Noncontrast CT images of the abdomen and pelvis were performed. The stone protocol without IV contrast and without oral contrast was requested for this examination. FINDINGS: CT ABDOMEN: A 4 mm calculus is noted in the left kidney. This was present on the prior study from September 24, 2007. There is no obstruction. The wall of the descending colon is thickened and there is paracolic edema distally. The wall thickening starts in the mid descending colon inferior to the spleen. This process extends to the proximal sigmoid colon. Several diverticula can be seen in the left colon. The small bowel is not dilated. Surgical clips are visible in the right upper quadrant consistent with a history of prior cholecystectomy. CT density of the liver is slightly lower than the spleen. The liver, spleen and pancreas have a homogeneous CT density but cannot be fully evaluated on this limited protocol exam. There is no free fluid in the abdomen. CT PELVIS: No calcified stones can be seen in the course of the distal ureters. No pelvic mass is present. No free fluid can be identified in the pelvis. The bladder is smooth in outline. The dome of the bladder is elongated and the wall may be thickened. A similar pattern can be seen on the previous study from September 24, 2007. Both inguinal canals are enlarged but only contain adipose tissue similar to the September 24, 2007 examination. [facility] interpreted the exam and sent a preliminary report. IMPRESSION The wall of the colon is thickened starting in the mid descending colon and extending into the sigmoid. There is also a moderate amount of stool in the descending colon proximal to the sigmoid. The descending colon is more distended than on the previous study from September 24, 2007. On the prior study, the patient was suspected to have diverticulitis. From the current findings, I cannot exclude a partial obstruction at the proximal sigmoid location. Close correlation with the patient's clinical evaluation is needed because a colon carcinoma as well as diverticula related strictures can have a similar appearance by CT. The abnormalities in the sigmoid colon are at the same location as on the September 24, 2007 examination. We would be happy to review the images with you. Hepatic steatosis is present, this looks worse than on the prior study. Please see above for other findings. Miguel Jesus DO CT ORDERABLES * (ABNORMAL) COMPREHENSIVE METABOLIC PANEL (02/02/2013 4:18 AM CDT) Glucose 108(H) 74 - 106 mg/dL 02/02/2013 4:39 AM CDT [facility] Sodium 142 136 - 145 mmol/L 02/02/2013 4:39 AM CDT [facility] Potassium 3.5 3.5 - 5.1 mmol/L 02/02/2013 4:39 AM CDT [facility] Chloride 102 98 - 107 mmol/L 02/02/2013 4:39 AM CDT [facility] CO2 31 22 - 31 mmol/L 02/02/2013 4:39 AM CDT [facility] Calcium 9.4 8.5 - 10.1 mg/dL 02/02/2013 4:39 AM CDT [facility] Anion Gap 9 5 - 15 mmol/L 02/02/2013 4:39 AM CDT [facility] BUN 8 7 - 21 mg/dL 02/02/2013 4:39 AM CDT [facility] Creatinine 0.76 0.50 - 1.30 mg/dL 02/02/2013 4:39 AM CDT [facility] eGFR by MDRD >60 >60 ml/min/1.7 3m2 02/02/2013 4:39 AM [facility] eGFR by MDRD >60 >60 ml/min/1.7 3m2 02/02/2013 4:39 AM [facility] Alkaline Phosphatase 88 38 - 126 U/L 02/02/2013 4:39 AM [facility] ALT 96(H) 12 - 78 U/L 02/02/2013 4:39 AM [facility] AST 67(H) 5 - 40 U/L 02/02/2013 4:39 AM [facility] Protein Total 7.7 6.4 - 8.2 gm/dL 02/02/2013 4:39 AM [facility] Albumin 3.6 3.4 - 5.0 gm/dL 02/02/2013 4:39 AM [facility] Bilirubin Total 1.0 0.2 - 1.0 mg/dL 02/02/2013 4:39 AM T [facility] Blood specimen (specimen) BLOOD SPECIMEN / Unknown Venipuncture / Unknown 02/02/2013 4:18 AM CDT 02/02/2013 4:22 AM CDT Miguel Jesus DO LAB - CHEMISTRY [place] Performing Organization Address City/[facility] Co de Phone Number [facility] [address] [place] [address] * LIPASE BLOOD (02/02/2013 4:18 AM CDT) Lipase 277 73 - 393 U/L 02/02/2013 4:45 AM T [facility] Blood specimen (specimen) BLOOD SPECIMEN / Unknown Venipuncture / Unknown 02/02/2013 4:18 AM CDT 02/02/2013 4:22 AM CDT Miguel Jesus DO LAB - CHEMISTRY [place] Performing Organization Address [facility] Co de Phone Number [facility] [address] [place] [address] * URINALYSIS ROUTINE W/REFLEX TO CULTURE (02/02/2013 3:31 AM CDT) Color UA Yellow Straw, Yellow, Dark Yellow 02/02/2013 3:51 AM [facility] Clarity UA Clear 02/02/2013 3:51 AM [facility] Specific Neon UA 1.006 1.005 - 1.030 02/02/2013 3:51 AM [facility] pH UA 6.5 5.0 - 8.0 02/02/2013 3:51 AM [facility] Protein UA Negative Negative 02/02/2013 3:51 AM [facility] Blood UA Negative Negative 02/02/2013 3:51 AM [facility] Leukocyte UA Negative Negative 02/02/2013 3:51 AM [facility] Nitrite UA Negative Negative 02/02/2013 3:51 AM [facility] Glucose UA Negative Negative 02/02/2013 3:51 AM [facility] Ketone UA Negative Negative 02/02/2013 3:51 AM [facility] Bilirubin UA Negative Negative 02/02/2013 3:51 AM [facility] Urobilinogen UA 0.2 0.1 - 1.0 EU/dL 02/02/2013 3:51 AM [facility] WBC UA Auto 0-2 0-2, 2-5 #/hpf 02/02/2013 3:51 AM [facility] RBC UA Auto 2-5 0-2, 2-5 #/hpf 02/02/2013 3:51 AM [facility] Epithelial Cell UA Auto 0-2 0-2, 2-5 #/hpf 02/02/2013 3:51 AM [facility] Bacteria UA Auto None seen None seen 02/02/2013 3:51 AM [facility] Urine Microscopy Urine microscopy not indicated 02/02/2013 3:51 AM [facility] Reflex Status Culture not indicated 02/02/2013 3:51 AM [facility] Urine specimen (specimen) URINE SPECIMEN OBTAINED BY CLEAN CATCH PROCEDURE / Unknown 02/02/2013 3:31 AM T 02/02/2013 3:35 AM [facility] Miguel Jesus DO LAB - URINALYSIS ORD ERABLES [facility] [address] [place] [address] * (ABNORMAL) CBC W AUTO DIFFERENTIAL (02/02/2013 3:28 AM CDT) [facility] WBC 6.1 4.4 - 10.7 x10^9/L 02/02/2013 3:39 AM [facility] RBC 5.68(H) 3.80 - 5.40 x10^12/L 02/02/2013 3:39 AM [facility] Hemoglobin 15.0 12.0 - 17.6 g/dL 02/02/2013 3:39 AM [facility] Hematocrit 42.2 35.2 - 51.7 % 02/02/2013 3:39 AM [facility] MCV 74.3(L) 80.7 - 98.3 fl 02/02/2013 3:39 AM [facility] MCH 26.4(L) 26.7 - 34.0 pg 02/02/2013 3:39 AM [facility] MCHC 35.5 30.8 - 35.9 gm/dL 02/02/2013 3:39 AM [facility] Platelet Count 182 153 - 416 x10^9/L 02/02/2013 3:39 AM [facility] RDW-CV 14.8 12.1 - 14.9 % 02/02/2013 3:39 AM [facility] MPV 10.2 9.4 - 12.9 fl 02/02/2013 3:39 AM [facility] Neutrophils % 59 44 - 73 % 02/02/2013 3:39 AM [facility] Lymphocytes % 28 20 - 43 % 02/02/2013 3:39 AM [facility] Monocytes % 10 5 - 13 % 02/02/2013 3:39 AM [facility] Eosinophils % 3 0 - 6 % 02/02/2013 3:39 AM [facility] Basophils % 1 0 - 2 % 02/02/2013 3:39 AM [facility] Immature Granulocytes 0.3 0 - 1 % 02/02/2013 3:39 AM [facility] Neutrophil Absolute 3.57 2.01 - 7.14 x10^9/L 02/02/2013 3:39 AM [facility] Lymphocytes Absolute 1.68 1.07 - 3.94 x10^9/L 02/02/2013 3:39 AM CDT [facility] Monocytes Absolute 0.58 0.26 - 1.07 x10^9/L 02/02/2013 3:39 AM CDT [facility] Eosinophils Absolute 0.17 0 - 0.47 x10^9/L 02/02/2013 3:39 AM CDT [facility] Basophils Absolute 0.03 0 - 0.08 x10^9/L 02/02/2013 3:39 AM CDT [facility] nRBC Auto 0 02/02/2013 3:39 AM CDT [facility] Blood specimen (specimen) BLOOD SPECIMEN / Unknown Venipuncture / Unknown 02/02/2013 3:28 AM CDT 02/02/2013 3:35 AM CDT Miguel Jesus DO LAB - HEMATOLOGY ORD ERABLES [facility] [address] [place] [address] documented in this encounter Visit Diagnoses Diagnosis Abdominal pain, acute Abdominal pain, unspecified site Colitis Other and unspecified noninfectious gastroenteritis and colitis Abdominal pain, acute Abdominal pain, unspecified site Colitis Other and unspecified noninfectious gastroenteritis and colitis documented in this encounter Administered Medications Inactive Administered Medications - up to 3 most recent administrations Medication Order MAR Action Action Date Dose Rate Site ketorolac (TORADOL) injection 60 mg 60 mg, Intramuscular, ONCE, 1 dose, On Radha 02/02/13 at 0615, . WASTE DISPOSAL INSTRUCTIONS: Black Bin Disposal required. $ Given 02/02/2013 6:26 AM CDT 60 mg Left Dorsogluteal ondansetron (disintegrating) (ZOFRAN ODT) tablet 4 mg 4 mg, Sublingual, ONCE, 1 dose, On Radha 02/02/13 at 0445 $ Given 02/02/2013 4:34 AM CDT 4 mg documented in this encounter Active and Recently Administered Medications Times are shown in CDT. Scheduled Medication Order 01/31/2013 02/01/2013 02/02/2013 ketorolac (TORADOL) injection 60 mg (COMPLETED) 60 mg, Intramuscular, ONCE, 1 dose, On Radha 02/02/13 at 0615, . WASTE DISPOSAL INSTRUCTIONS: Black Bin Disposal required. 0626 ($ Given - Prov ider: Alba Boyle, DOMITILA) ondansetron (disintegrating) (ZOFRAN ODT) tablet 4 mg (COMPLETED) 4 mg, Sublingual, ONCE, 1 dose, On Radha 02/02/13 at 0445 2804 ($ Given - Prov ider: Alba Boyle, DOMITILA) documented in this encounter Care Teams Foot Roentgenologist Relationship Specialty Start Date End Date None, P[place] [address] PCP - General Nurse Practitioner 02/02/13 documented as of this encounter
--- OUTSIDE RECORDS SUMMARY | 2024-09-10 03:45 | XMS_ITS | Encounter Summary ---
Author Organization [facility] Address [address] [place] [address] Care Team Providers Care Slot Operations Manager Name Role Phone Unknown, Provider Primary Care Provider Unavaila ble Encounter Details Date Type Department Care Team (Late st Contact Info) Description 03/27/2008 1:25 PM CDT - 03/27/2008 2:20 PM CDT Hospital Encounter Win Ann MD [address] [place] [address] Emergency Medicine Discharge Disposition: Home or Self Care Social [...] Sig Dispensed Refills Start Date End Date CIPRO PO Take by mouth. 06/30/2008 FLAGYL PO Take by mouth. 06/30/2008 LEVSIN/SL 0.125 MG SUBL Dissolve under the tongue as needed 06/30/2008 LEXAPRO 10 MG tablet Take 10 mg by mouth daily. 01/30/2012 PRILOSEC PO Take by mouth as needed 12/05/2009 promethazine (PHENERGAN) 25 MG suppository Insert 1 Suppository into the rectum every 6 hours as needed for Nausea/Vomiting. 6 0 01/01/2008 06/30/2008 promethazine (PHENERGAN) 25 MG tablet Take 1 Tab by mouth every 6 hours as needed for Nausea/Vomiting. 10 0 01/01/2008 06/30/2008 XANAX 2 MG tablet Take 2 mg by mouth 3 times daily. Ran out of script 12/05/2009 documented as of this encounter Plan of Treatment Not on file documented as of this encounter Visit Diagnoses Not on filedocumented in this encounter Care Teams Slot Operations Manager Relationship Specialty Start Date End Date Unknown, Provider PCP - General 03/27/08 06/07/09 documented as of this encounter
--- OUTSIDE RECORDS SUMMARY | 2024-09-10 03:45 | XMS_ITS | Encounter Summary ---
Author Organization [facility] Address [address] [place] [address] Care Team Providers Care Pockets And Pieces Necktie Operator Name Role Phone Alcon Munoz MD Primary Care Provider Reason for Visit * Reason Onset Date Comments Update 07/25/2012 Encounter Details Date Type Department Care Team (Late st Contact Info) Description 07/25/2012 Telephone [facility] - Family Medicine [address] [place] [id number] [place] [address] [place] [address] Update Social History Tobacco Use [...] encounter Miscellaneous Notes * Telephone Encounter - Tara Soler - 07/25/2012 3:49 PM CST Pt states he cant afford the visit. ION WRITER * Telephone Encounter - Alcon Munoz MD - 07/25/2012 3:47 PM CST Patient needs appointment. Can see tomorrow. If cant' wait, then ER. ION WRITER * Telephone Encounter - Tara Soler - 07/25/2012 3:44 PM CST T/c from Carlos Mcgee. Pt states he is now down with the steroids and is still having chest discomfort. Please advise on what the patient should do next. ION WRITER documented in this encounter Plan of Treatment Not on file documented as of this encounter Visit Diagnoses Not on filedocumented in this encounter Care Teams Pockets And Pieces Necktie Operator Relationship Specialty Start Date End Date Alcon Munoz MD PCP - General Family Medicine 07/05/12 02/01/13 documented as of this encounter
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
--- OUTSIDE RECORDS SUMMARY | 2024-09-10 03:45 | XMS_ITS | Encounter Summary ---
Author Organization [facility] Address [address] [place] [address] Care Team Providers Care Corporate Development Analyst Name Role Phone Jessica Waters MD Primary Care Provider [phone] Reason for Visit * Reason Comments Anxiety Patient states he is almost out of Celexa and Xanax and can't see his Psyciatrist until Pain Neck neck pain, states ch iropracter was too hard on his neck today tried 800mg ibuprofin and heating pad with minimal relief Encounter Details Date Type Department Care Team (Late st Contact Info) Description 10/24/2016 1:16 AM SODA WORKER - 10/24/2016 3:36 AM SODA WORKER Emergency ER at [facility] [address] [place] [address] [phone] Neck pain; Encounter for medication refill Discharge Disposition: Home [...] Sign Reading Time Taken Comments Blood Pressure 129/78 10/24/2016 1:53 AM SODA WORKER Pulse 71 10/24/2016 1:21 AM SODA WORKER Temperature 36.6 ??C (97.8 ??F) 10/24/2016 1:21 AM CS T Respiratory Rate 15 10/24/2016 1:21 AM SODA WORKER Oxygen Saturation 99% 10/24/2016 2:25 AM SODA WORKER Inhaled Oxygen Concentration - - Weight 107.5 kg (237 lb) 10/24/2016 1:21 AM SODA WORKER Height 188 cm (6' 2 ) 10/24/2016 1:21 AM SODA WORKER Body Mass Index 30.43 10/24/2016 1:21 AM SODA WORKER documented in this encounter Discharge Instructions * Discharge Instructions* Adali Ulloa RN - 10/24/2016 3:35 AM SODA WORKER Images from the original note were not included. Panic Attacks Panic attacks are sudden, short-lived??surges of severe anxiety, fear, or discomfort. They may occur for no reason when you are relaxed, when you are anxious, or when you are sleeping. Panic attacks may occur for a number of reasons: ?? Healthy people occasionally have panic attacks in extreme, life-threatening situations, such as war or natural disasters. Normal anxiety is a protective mechanism of the body that helps us react to danger (fight or flight response). ?? Panic attacks are often seen with anxiety disorders, such as panic disorder, social anxiety disorder, generalized anxiety disorder, and phobias. Anxiety disorders cause excessive or uncontrollableanxiety. They may interfere with your relationships or other life activities. ?? Panic attacks are sometimes seen with other mental illnesses, such as depression and posttraumatic stress disorder. ?? Certain medical conditions, prescription medicines, and drugs of abuse can cause panic attacks. SYMPTOMS Panic attacks start suddenly, peak within 20 minutes, and are accompanied by four or more of the following symptoms: ?? Pounding heart or fast heart rate (palpitations). ?? Sweating. ?? Trembling or shaking. ?? Shortness of breath or feeling smothered. ?? Feeling choked. ?? Chest pain or discomfort. ?? Nausea or strange feeling in your stomach. ?? Dizziness, light-headedness, or feeling like you will faint. ?? Chills or hot flushes. ?? Numbness or tingling in your lips or hands and feet. ?? Feeling that things are not real or feeling that you are not yourself. ?? Fear of losing control or going crazy. ?? Fear of dying. Some of these symptoms can mimic serious medical conditions. For example, you may think you are having a heart attack. Although panic attacks can be very scary, they are not life threatening. DIAGNOSIS Panic attacks are diagnosed through an assessment by your health care provider. Your health care provider will ask questions about your symptoms, such as where and when they occurred. Your health care provider will also ask about your medical history and use of alcohol and drugs, including prescription medicines. Your health care provider may order blood tests or other studies to rule out a serious medical condition. Your health care provider may refer you to a mental health professional for further evaluation. TREATMENT ?? Most healthy people who have one or two panic attacks in an extreme, life- threatening situation will not require treatment. ?? The treatment for panic attacks associated with anxiety disorders or other mental illness typically involves counseling with a mental health professional, medicine, or a combination of both. Your health care provider will help determine what treatment is best for you. ?? Panic attacks due to physical illness usually go away with treatment of the illness. If prescription medicine is causing panic attacks, talk with your health care provider about stopping the medicine, decreasing the dose, or substituting another medicine. ?? Panic attacks due to alcohol or drug abuse go away with abstinence. Some adults need professional help in order to stop drinking or using drugs. HOME CARE INSTRUCTIONS ?? Take all medicines as directed by your health care provider. ? Schedule and attend follow-up visits as directed by your health care provider. It is important to keep all your appointments. SEEK MEDICAL CARE IF: ?? You are not able to take your medicines as prescribed. ?? Your symptoms do not improve or get worse. SEEK IMMEDIATE MEDICAL CARE IF: ?? You experience panic attack symptoms that are different than your usual symptoms. ?? You have serious thoughts about hurting yourself or others. ?? You are taking medicine for panic attacks and have a serious side effect. MAKE SURE YOU: ?? Understand these instructions. ?? Will watch your condition. ?? Will get help right away if you are not doing well or get worse. Document Released: 08/30/2006 Document Revised: 09/04/2014 Document Reviewed: 04/13/2014 ExitCare?? Patient Information ??2015 [email or web address]. This information is not intended to replace advice given to you by your health care provider. Make sure you discuss any questions you have with your health care provider. Cervical Sprain A cervical sprain is an injury in the neck in which the strong, fibrous tissues (ligaments) that connect your neck bones stretch or tear. Cervical sprains can range from mild to severe. Severe cervical sprains can cause the neck vertebrae to be unstable. This can lead to damage of the spinal cord and can result in serious nervous system problems. The amount of time it takes for a cervical sprain to get better depends on the cause and extent of the injury. Most cervical sprains heal in 1 to 3 weeks. CAUSES Severe cervical sprains may be caused by: ?? Contact sport injuries (such as from football, rugby, wrestling, hockey, auto racing, gymnastics, diving, martial arts, or boxing). ? Motor vehicle collisions. ? Whiplash injuries. This is an injury from a sudden forward and backward whipping movement of thehead and neck.? Falls. ?? Mild cervical sprains may be caused by: ?? Being in an awkward position, such as while cradling a telephone between your ear and shoulder. ? Sitting in a chair that does not offer proper support. ? Working at a poorly designed computer station. ? Looking up or down for long periods of time. ?? SYMPTOMS ?? Pain, soreness, stiffness, or a burning sensation in the front, back, or sides of the neck. Thisdiscomfort may develop immediately after the injury or slowly, 24 hours or more after the injury. ? Pain or tenderness directly in the middle of the back of the neck. ? Shoulder or upper back pain. ? Limited ability to move the neck. ? Headache. ? Dizziness. ? Weakness, numbness, or tingling in the hands or arms. ? Muscle spasms. ? Difficulty swallowing or chewing. ? Tenderness and swelling of the neck. ?? DIAGNOSIS Most of the time your health care provider can diagnose a cervical sprain by taking your history and doing a physical exam. Your health care provider will ask about previous neck injuries and any known neck problems, such as arthritis in the neck. X-rays may be taken to find out if there are any other problems, such as with the bones of the neck. Other tests, such as a CT scan or MRI, may also beneeded. TREATMENT Treatment depends on the severity of the cervical sprain. Mild sprains can be treated with rest, keeping the neck in place (immobilization), and pain medicines. Severe cervical sprains are immediately immobilized. Further treatment is done to help with pain, muscle spasms, and other symptoms and may include: ?? Medicines, such as pain relievers, numbing medicines, or muscle relaxants. ? Physical therapy. This may involve stretching exercises, strengthening exercises, and posture training. Exercises and improved posture can help stabilize the neck, strengthen muscles, and help stop symptoms from returning. ?? HOME CARE INSTRUCTIONS ?? Put ice on the injured area. ? Put ice in a plastic bag. ? Place a towel between your skin and the bag. ? Leave the ice on for 15-20 minutes, 3-4 times a day. ? If your injury was severe, you may have been given a cervical collar to wear. A cervical collar is a two-piece collar designed to keep your neck from moving while it heals. ?? Do not remove the collar unless instructed by your health care provider. ?? If you have long hair, keep it outside of the collar. ?? Ask your health care provider before making any adjustments to your collar. Minor adjustments may be required over time to improve comfort and reduce pressure on your chin or on the back of your head. ?? If??you are allowed to remove the collar for cleaning or bathing, follow your health care provider's instructions on how to do so safely. ?? Keep your collar clean by wiping it with mild soap and water and drying it completely. If the collar you have been given includes removable pads, remove them every 1-2 days and hand wash them withsoap and water. Allow them to air dry. They should be completely dry before you wear them in the collar. ?? If you are allowed to remove the collar for cleaning and bathing, wash and dry the skin of your neck. Check your skin for irritation or sores. If you see any, tell your health care provider. ?? Do not drive while wearing the collar. ? Only take [id number] or prescription medicines for pain, discomfort, or fever as directed by your health care provider. ? Keep all follow-up appointments as directed by your health care provider. ? Keep all physical therapy appointments as directed by your health care provider. ? Make any needed adjustments to your workstation to promote good posture. ? Avoid positions and activities that make your symptoms worse. ? Warm up and stretch before being active to help prevent problems. ?? SEEK MEDICAL CARE IF: ?? Your pain is not controlled with medicine. ? You are unable to decrease your pain medicine over time as planned. ? Your activity level is not improving as expected. ?? SEEK IMMEDIATE MEDICAL CARE IF: ?? You develop any bleeding. ?? You develop stomach upset. ?? You have signs of an allergic reaction to your medicine. ? Your symptoms get worse. ? You develop new, unexplained symptoms. ? You have numbness, tingling, weakness, or paralysis in any part of your body. ?? MAKE SURE YOU: ?? Understand these instructions. ?? Will watch your condition. ?? Will get help right away if you are not doing well or get worse. Document Released: 06/26/2008 Document Revised: 09/04/2014 Document Reviewed: 03/07/2014 ExitCare?? Patient Information ??2015 [email or web address]. This information is not intended to replace advice given to you by your health care provider. Make sure you discuss any questions you have with your health care provider. Medication Refill, Emergency Department We have refilled your medication today as a courtesy to you. It is best for your medical care, however, to take care of getting refills done through your primary caregiver's office. They have your records and can do a better job of follow-up than we can in the emergency department. On maintenance medications, we often only prescribe enough medications to get you by until you are able to see your regular caregiver. This is a more expensive way to refill medications. In the future, please plan for refills so that you will not have to use the emergency department for this. Thank you for your help. Your help allows us to better take care of the daily emergencies that enter our department. Document Released: 12/16/2004 Document Revised: 11/21/2012 Document Reviewed: 12/07/2014 ExitCare?? Patient Information ??2015 [email or web address]. This information is not intended to replace advice given to you by your health care provider. Make sure you discuss any questions you have with your health care provider. WORKER documented in this encounter Medications at Time of Discharge Medication Sig Dispensed Refills Start Date End Date ALPRAZolam (XANAX) 2 MG tablet Take 1 Tab by mouth 2 times daily as needed for Anxiety. 40 Tab 0 07/18/2012 11/09/2019 atenolol (TENORMIN) 50 MG tablet Take 50 mg by mouth once daily 07/24/2019 citalopram (CELEXA) 10 MG tablet Take 10 mg by mouth once daily. 08/01/2019 fluticasone propionate (FLONASE) 50 MCG/ACT nasal spray [place] 2 Sprays into each nostril once daily 08/01/2019 LORazepam (ATIVAN) 2 MG tablet Take 1 Tab by mouth every 8 hours as needed for Anxiety 6 Tab 10/24/2016 08/01/2019 methocarbamol (ROBAXIN) 750 MG tablet Take 1 Tab by mouth every 6 hours 20 Tab 10/24/2016 08/01/2019 omeprazole (PRILOSEC) 40 MG capsule Take 1 Cap by mouth daily before breakfast. 30 Cap 0 09/11/2013 08/01/2019 documented as of this encounter Progress Notes * Norah Levine - 10/24/2016 3:36 AM CST Unable to leave a message at the phone number of record ( incorrect # ) therefore no services will be provided at this time chart updated. Norah Levine Community Compressor Operator [facility] [phone] /[phone] [facility] WORKER documented in this encounter ED Notes * Adali Ulloa RN - 10/24/2016 3:34 AM CST Patient discharge instructions reviewed with patient by AMIRA Cuba. Patient states understanding of information and has no further questions at this time. Patient refused last set of vital signs. WORKER * Adali Ulloa RN - 10/24/2016 3:17 AM CST Patient ambulated to the restroom. WORKER * Adali Ulloa RN - 10/24/2016 2:33 AM CST Patient back from [facility]. WORKER * Stanton Wu PA-C - 10/24/2016 1:58 AM CST Provider contact with the patient: 10/24/2016 01:58 Carlos Law Arely [id number] [facility] EMERGENCY DEPARTMENT History Chief Complaint Patient presents with ??? Anxiety Patient states he is almost out of Celexa and Xanax and can't see his Psyciatrist until ??? Pain Neck neck pain, states chiropracter was too hard on his neck today tried 800mg ibuprofin and heating pad with minimal relief HPI Comments: 46 M with hx of asthma presents for medication refill of his Xanax. Pt states he had been out for 1 day. Pt takes 2 mg tid for the last 16 years. Pt states he has a new psychiatrist andPCP established, but does not have his first appointment until (4 days). Pt reports stressors from being involved with the [employer] and was just released from the [employer] 2 days ago after being detained for questioning. Denies SI, HI, AH, or VH. Pt also complains of having neck pain today after his chiropractor adjustment. Pt has taken Ibuprofen for his pain with little relief. Denies numbness, tingling, weakness, or incontinent bowel or bladder. Past Medical History Diagnosis Date ??? Anxiety ??? Depression ??? Diabetes ??? Diverticulitis ??? Diverticulosis of the colon ??? GERD (gastroesophageal reflux disease) ??? Panic attacks Past Surgical History Procedure Laterality Date ??? Cholecystectomy Family History Problem Relation Age of Onset ??? Stroke Father ??? Alcohol abuse Father ??? Cirrhosis Mother ??? Bipolar Disorder Mother ??? Depression Mother History Social History ??? Marital status: Spouse name: N/A ??? Number of children: N/A ??? Years of education: N/A Occupational History ??? Not on file. Social History Main Topics ??? Smoking status: Former Smoker ??? Smokeless tobacco: Never Used ??? Alcohol use: No ??? Drug use: No ??? Sexual activity: Not Currently Other Topics Concern ??? Not on file Social History Narrative Allergies Allergen Reactions ??? Contrast-Iodinated Agents For Ct/Other ??? Lidocaine Rash and Swelling ??? Paxil [Paroxetine] ??? Percocet [Oxycodone-Acetaminophen] Palpitations and Other Pt reports that he breaks out into a sweat ??? Sulfa Drugs ??? Bactrim Ds Rash ??? Levaquin Hallucinations Review of Systems Review of Systems Constitutional: Negative. Negative for chills and fever. HENT: Negative. Eyes: Negative. Respiratory: Negative. Negative for shortness of breath. Cardiovascular: Negative. Negative for chest pain. Gastrointestinal: Negative. Negative for abdominal pain. Genitourinary: Negative. Musculoskeletal: Negative. Skin: Negative. Neurological: Negative. Negative for headaches. Psychiatric/Behavioral: The patient is nervous/anxious. All other systems reviewed and are negative. Physical Exam BP 140/76 Pulse 71 Temp 97.8 ??F Resp 15 Ht 1.88 m (6' 2 ) Wt 107.5 kg (237 lb) SpO2 99% BMI 30.43 kg/m2 Physical Exam Constitutional: He is oriented to person, place, and time. He appears well- developed. No distress. Obese HENT: Head: Normocephalic and atraumatic. Right Ear: External ear normal. Left Ear: External ear normal. Mouth/Throat: Oropharynx is clear and moist. No oropharyngeal exudate. Eyes: Conjunctivae and EOM are normal. Pupils are equal, round, and reactive to light. Right eye exhibits no discharge. Left eye exhibits no discharge. Neck: Normal range of motion. Neck supple. No spinous process tenderness and no muscular tendernesspresent. No rigidity. No edema, no erythema and normal range of motion present. Unremarkable neck exam Cardiovascular: Normal rate, regular rhythm and intact distal pulses. Pulmonary/Chest: Effort normal and breath sounds normal. No respiratory distress. Abdominal: Soft. Bowel sounds are normal. He exhibits no distension. There is no tenderness. Musculoskeletal: Normal range of motion. He exhibits no tenderness. Lymphadenopathy: He has no cervical adenopathy. Neurological: He is alert and oriented to person, place, and time. He has normal strength. Gait normal. Skin: Skin is warm and dry. No rash noted. He is not diaphoretic. Psychiatric: His behavior is normal. His mood appears not anxious. He expresses no homicidal and nosuicidal ideation. Pt prefers to go into long detail about his life with the Angela daniel than discuss his anxiety and neck pain. Conversation had to be redirected back to his complaints multiple times. He is inattentive. Nursing note and vitals reviewed. Medications Current Outpatient Prescriptions Medication Sig Dispense Refill ??? atenolol (TENORMIN) 50 MG tablet Take 50 mg by mouth once daily ??? fluticasone propionate (FLONASE) 50 MCG/ACT nasal spray [place] 2 Sprays into each nostril once daily ??? LORazepam (ATIVAN) 2 MG tablet Take 1 Tab by mouth every 8 hours as needed for Anxiety 6 Tab 0 ??? methocarbamol (ROBAXIN) 750 MG tablet Take 1 Tab by mouth every 6 hours 20 Tab 0 ??? omeprazole (PRILOSEC) 40 MG capsule Take 1 Cap by mouth daily before breakfast. 30 Cap 0 ??? ALPRAZolam (XANAX) 2 MG tablet Take 1 Tab by mouth 2 times daily as needed for Anxiety. 40 Tab 0 ??? citalopram (CELEXA) 10 MG tablet Take 10 mg by mouth once daily. Procedures Procedures ECG Interpretation ECG Interpretation Lab/SPO2 Interpretation No results found for this visit on 10/24/16. XR CERVICAL SPINE 2 OR 3 VW (Results Pending) ED Prelim: No acute fx Progress Notes 2:23 AM: I re-evaluated the patient???s medical condition, comfort, and provided a care update. I had a formal disposition interview with the patient/family to discuss the ED visit and disposition plan. Pt is medically stable for discharge. I have given the patient instructions regarding his diagnosis, expectations, follow up, and return precautions. I explained to the patient that emergent conditions may arise and to return to the ER for new, worsening, or any persistent conditions. I've explained the importance of following up with his primary doctor as instructed. The patient verbalized understanding of the discharge instructions. Pt was upset that he would not receive his Xanax. I explained to the pt that Ativan is also a benzodiazepine and has less potential for abuse than xanax. Pt was informed that chronic conditions are not managed here in the ED because there is not appropriate follow up, but he would be provided with a small supply of Ativan in the event of withdrawal. Pt was provided with follow up options and the documentation coordinator. Pt then requested to see the CSN. See note for details. BP 129/78 Pulse 71 Temp 97.8 ??F Resp 15 Ht 1.88 m (6' 2 ) Wt 107.5 kg (237 lb) SpO2 99% BMI 30.43 kg/m2 ED Course ED Course There is no data filed. Medical Decision Making I have reviewed the: Previous Chart, Nursing Notes, Vitals. I have interpreted the following results: X-Ray, Oxygen Saturation. Orders Placed This Encounter ??? XR CERVICAL SPINE 2 OR 3 VW ??? LORazepam (ATIVAN) 2 MG tablet ??? methocarbamol (ROBAXIN) 750 MG tablet Clinical Impression Final diagnoses: Neck pain Encounter for medication refill Discharge Medication List as of 10/24/2016 3:21 AM START taking these medications Details LORazepam (ATIVAN) 2 MG tablet Disp-6 Tab, R-0, Take 1 Tab by mouth every 8 hours as needed for Anxiety, Print methocarbamol (ROBAXIN) 750 MG tablet Disp-20 Tab, R-0, Take 1 Tab by mouth every 6 hours, Print Follow-up: [facility] Emergency Department [address] [facility] [address] Go today If symptoms worsen Jessica Powers MD [address] [facility] [address] [facility] [phone] Schedule an appointment as soon as possible for a visit [place] [address] [facility] [address] [facility] [address] Schedule an appointment as soon as possible for a visit For Re-evaluation DISCHARGED HOME WORKER * Adali Ulloa RN - 10/24/2016 1:18 AM CST Patient states having anxiety since this morning. Patient states his anxiety level is at a 7/10 right now. Patient is calm and cooperative. Patient also states having some neck pain after seeing his chiropractor today. Patient states since his jaw hurts and pops, also states left eye twitching, and lightheadedness. Patient states having some tingling in his feet since seeing the chiropractor. WORKER documented in this encounter Plan of Treatment Not on file documented as of this encounter Procedures Procedure Name Priority Date/Time Associated Diagnosis Comments XR CERVICAL SPINE 2 OR 3VW STAT 10/24/2016 2:40 AM SODA WORKER Neck pain documented in this encounter Results * XR CERVICAL SPINE 2 OR 3 VW (10/24/2016 2:40 AM SODA WORKER) Anatomical Region Laterality Modality Spine Radiographic Katarzyna ging 10/24/2016 7:09 AM SODA WORKER Impressions 10/24/2016 7:10 AM SODA WORKER The spinal alignment is normal. The prevertebral soft tissues also appear normal. Mild degenerative disc disease is seen at C5-C6. The C7 vertebral body is not well seen in the lateral view. The C1-C2 articulation appears normal. Narrative 10/24/2016 7:10 AM SODA WORKER Exam: Cervical spine, 5 views. History: Cervalgia. [...] normal. Stanton Wu PA-C DIAGNOSTIC IMAGING ORDERABLES documented in this encounter Visit Diagnoses Diagnosis Neck pain Cervicalgia Encounter for medication refill Issue of repeat prescriptions documented in this encounter Care Teams Corporate Development Analyst Relationship Specialty Start Date End Date Jessica Waters MD [facility] [address] [place] [phone] PCP - General Internal Medicine 07/29/15 07/17/19 documented as of this encounter
--- OUTSIDE RECORDS SUMMARY | 2024-09-10 03:45 | XMS_ITS | Encounter Summary ---
Author Organization [facility] Address [address] [place] [address] Care Team Providers Care Rf Test Technician Name Role Phone None, Pcp Primary Care Provider Jessica Somers MD Primary Care Provider Encounter Details Date Type Department Care Team (Latest Contact Info) Description 10/09/2013 Emergency Department Historic [facility] EMERGENCY DEPARTMENT [address] [place] [address] Bertha Guerra MD [address] [place] [address] Discharge Disposition: Home or Self Care Social [...] Sign Reading Time Taken Comments Blood Pressure 139/67 10/09/2013 5:00 PM HOSPITAL PRODUCT SPECIALIST Pulse 91 10/09/2013 5:00 PM HOSPITAL PRODUCT SPECIALIST Temperature 36.9 ??C (98.4 ??F) 10/09/2013 12:[address] Respiratory Rate 16 10/09/2013 5:00 PM HOSPITAL PRODUCT SPECIALIST Oxygen Saturation 98% 10/09/2013 5:00 PM HOSPITAL PRODUCT SPECIALIST Inhaled Oxygen Concentration - - Weight 109.8 kg (242 lb) 10/09/2013 12:23 PM HOSPITAL PRODUCT SPECIALIST Height 188 cm (6' 2 ) 10/09/2013 12:23 PM HOSPITAL PRODUCT SPECIALIST Body Mass Index 31.07 10/09/2013 12:23 PM HOSPITAL PRODUCT SPECIALIST documented in this encounter Plan of Treatment Not on file documented as of this encounter Procedures Procedure Name Priority Date/Time Associated Diagnosis Comments CT ABDOMEN PELVIS WO CONTRAST STAT 10/09/2013 4:42 PM HOSPITAL PRODUCT SPECIALIST CBC W AUTO DIFFERENTIAL Routine 10/09/2013 2:44 PM HOSPITAL PRODUCT SPECIALIST COMPREHENSIVE METABOLIC PANEL Routine 10/09/2013 2:44 PM HOSPITAL PRODUCT SPECIALIST LIPASE BLOOD STAT 10/09/2013 2:44 PM HOSPITAL PRODUCT SPECIALIST AMYLASE BLOOD STAT 10/09/2013 2:44 PM HOSPITAL PRODUCT SPECIALIST DRUG ABUSE PANEL 10-20+ETHANOL URINE NO CONFIRM STAT 10/09/2013 2:43 PM HOSPITAL PRODUCT SPECIALIST URINALYSIS REFLEX TO MICROSCOPIC NO CULTURE STAT 10/09/2013 2:43 PM HOSPITAL PRODUCT SPECIALIST EKG 12-LEAD Routine 10/09/2013 12:00 AM HOSPITAL PRODUCT SPECIALIST documented in this encounter Results * CT ABDOMEN PELVIS WO CONTRAST (10/09/2013 4:42 PM HOSPITAL PRODUCT SPECIALIST) Anatomical Region Laterality Modality Abdomen, Pelvis Other Impressions 10/11/2013 9:06 AM HOSPITAL PRODUCT SPECIALIST IMPRESSION: 1. Mural thickening and inflammatory stranding surrounding the sigmoid colon as well as mural thickening of the descending colon, not significantly changed since 10/14/11 and 09/07/11. Given that this has been present for 2 years, malignancy is a concern. Correlation with colonoscopy is recommended. Chronic diverticulitis and infectious/inflammatory colitis are also considerations. 2. Hepatic steatosis. Preliminary findings were discussed with Dr. Nelson by Dr. Alford on 10/09/13 1703 hours. Report dictated by Jenaro Rock MD (vice president of product marketing). This report was approved ??by Jenaro Rock M.D. ?? on 10/10/2013 11:18 AM . I, Dr. Skylar GARCIA M.D. have personally reviewed and interpreted this examination/study. This report was electronically signed by Skylar GARCIA M.D. ??on 10/11/2013 9:06 AM . Narrative 10/11/2013 9:06 AM HOSPITAL PRODUCT SPECIALIST EXAMINATION: Computed tomography of the abdomen and pelvis without contrast DATE: 10/09/2013 HISTORY: midline lower abdominal pain TECHNIQUE: Computed tomography of the abdomen and pelvis was performed without contrast according to standard protocol. COMPARISON: Outside hospital CT dated 10/14/11 and 09/07/11. FINDINGS: The visualized lung bases are clear. The heart size is normal without pericardial effusion. There is diffuse hepatic steatosis. Gallbladder is surgically absent. There is no ductal dilatation. Noncontrast images of the spleen, pancreas, and adrenal glands appear normal. Bilateral nonobstructive renal calculi are noted. No stones are identified along the course of either ureter. There is no hydronephrosis or hydroureter. Superior outpouching extension of the urinary bladder to the region of the sigmoid colon may represent a urachal remnant, unchanged. The urinary bladder otherwise appears normal. The prostate gland is normal. The stomach and small bowel are normal in caliber without indication of obstruction. Mural thickening and inflammatory stranding surrounding the sigmoid colon is similar in appearance to prior outside CT dated 10/14/2011 and 09/07/11. There are a few diverticula surrounding this region. There is also mild mural thickening of the descending colon without inflammatory stranding just proximal to this region. No free intraperitoneal air or free fluid is identified. No lymphadenopathy is seen. The abdominal aorta is normal in course and caliber. Bone windows demonstrate no suspicious lytic or blastic lesions. Procedure Note Hortencia Garcia MD - 12/11/2017 EXAMINATION: Computed tomography of the abdomen and pelvis withoutcontrast DATE: 10/09/2013 HISTORY: midline lower abdominal pain TECHNIQUE: Computed tomography of the abdomen and pelvis was performedwithout contrast according to standard protocol. COMPARISON: Outside hospital CT dated 10/14/11 and 09/07/11. FINDINGS: The visualized lung bases are clear. The heart size is normal withoutpericardial effusion. There is diffuse hepatic steatosis. Gallbladder is surgically absent.There is no ductal dilatation. Noncontrast images of the spleen, pancreas,and adrenal glands appear normal. Bilateral nonobstructive renal calculi are noted. No stones are identifiedalong the course of either ureter. There is no hydronephrosis orhydroureter. Superior outpouching extension of the urinary bladder to theregion of the sigmoid colon may represent a urachal remnant, unchanged. The urinary bladder otherwiseappears normal. The prostate gland is normal. The stomach and small bowel are normal in caliber without indication ofobstruction. Mural thickening and inflammatory stranding surrounding thesigmoid colon is similar in appearance to prior outside CT dated 10/14/2011nd 09/07/11. There are a few diverticula surrounding this region. There is also mild mural thickeningof the descending colon without inflammatory stranding just proximal tothis region. No free intraperitoneal air or free fluid is identified. Nolymphadenopathy is seen. The abdominal aorta is normal in course andcaliber. Bone windows demonstrate no suspicious lytic or blastic lesions. IMPRESSION IMPRESSION: 1. Mural thickening and inflammatory stranding surrounding the sigmoidcolon as well as mural thickening of the descending colon, notsignificantly changed since 10/14/11 and 09/07/11. Given that this has beenpresent for 2 years, malignancy is a concern. Correlation with colonoscopy is recommended. Chronic diverticulitis andinfectious/inflammatory colitis are also considerations. 2. Hepatic steatosis. Preliminary findings were discussed with Dr. Nelson by Dr. Alford on10/09/13 1703 hours. Report dictated by Jenaro Rock MD (vice president of product marketing). This report was approved by Jenaro Rock M.D. on 10/10/2013 11:18 AM . IDr. Skylar M.D. have personally reviewed and interpreted thisexamination/study. This report was electronically signed by Skylar GARCIA M.D. on10/11/2013 9:06 AM . Bertha Guerra MD CT ORDERABLES * LIPASE BLOOD (10/09/2013 2:44 PM HOSPITAL PRODUCT SPECIALIST) Lipase 51 8 - 78 Units/L [facility] Serum 10/09/2013 2:44 PM HOSPITAL PRODUCT SPECIALIST 10/09/2013 2:44 PM HOSPITAL PRODUCT SPECIALIST Memo Workman MD LAB - CHEMISTRY [place] [facility] Organization Address City/State/ZIP Co de Phone Number [address] [phone] * AMYLASE BLOOD (10/09/2013 2:44 PM HOSPITAL PRODUCT SPECIALIST) Amylase 59 25 - 125 Units/L [facility] Serum 10/09/2013 2:44 PM HOSPITAL PRODUCT SPECIALIST 10/09/2013 2:44 PM HOSPITAL PRODUCT SPECIALIST Memo Workman MD LAB - CHEMISTRY [place] [facility] [address] [place] [address] * (ABNORMAL) COMPREHENSIVE METABOLIC PANEL (10/09/2013 2:44 PM HOSPITAL PRODUCT SPECIALIST) BUN 8 7 - 26 mg/dL [facility] Creatinine 0.9 0.6 - 1.2 mg/dL [facility] eGFR by MDRD > 60 ML/MIN [facility] Comment: Chronic kidney disease: ??<60 ml/min Kidney failure: ?<15 ml/min Based on BSA of 1.73m2. Sodium 141 136 - 145 mmol/L [facility] Potassium 3.2(L) 3.5 - 4.5 mmol/L [facility] Chloride 104 98 - 107 mmol/L [facility] CO2 23 22 - 29 mmol/L [facility] Glucose 100 70 - 115 mg/dL [facility] Calcium 10.1 8.4 - 10.2 mg/dL [facility] Protein Total 7.9 6.0 - 8.3 g/dL [facility] Albumin 3.9 3.4 - 5.0 g/dL [facility] Bilirubin Total 1.5(H) 0.2 - 1.2 mg/dL [facility] Alkaline Phosphatase 84 40 - 150 Units/L [facility] ALT 116(H) 0 - 55 Units/L [facility] AST 113(H) 5 - 34 Units/L [facility] Anion Gap 17 8 - 18 [facility] BUN/Creatinine Ratio 8 7 - 23 [facility] Osmolality Calculation 274 270 - 300 mOsm/kg [facility] Albumin/Globulin Ratio 1.0(L) 1.1 - 2.3 [facility] Serum 10/09/2013 2:44 PM HOSPITAL PRODUCT SPECIALIST 10/09/2013 2:44 PM HOSPITAL PRODUCT SPECIALIST Memo Workman MD LAB - CHEMISTRY [place] [facility] [address] [place] [address], [facility] [phone] * (ABNORMAL) CBC W AUTO DIFFERENTIAL (10/09/2013 2:44 PM HOSPITAL PRODUCT SPECIALIST) WBC 6.4 3.5 - 10.5 10^3/uL [facility] RBC 5.60 4.30 - 5.70 10^6/uL [facility] Hemoglobin 14.3 13.5 - 17.5 g/dL [facility] Hematocrit 42.6 39.0 - 50.0 % [facility] MCV 76.1(L) 81.0 - 97.0 FL [facility] MCH 25.5(L) 28.0 - 34.0 PG [facility] MCHC 33.6 32.0 - 36.0 G/DL [facility] Platelet 161 150 - 400 10^3/uL [facility] RDW 15.6(H) 11.2 - 14.8 % [facility] RDW-SD 42.8 36 - 50 FL [facility] MPV 9.5 9.3 - 12.8 FL [facility] Neutrophils % 63.4 35.0 - 70.0 % [facility] Lymphocytes % 27.8 19.7 - 55.1 % [facility] Monocytes % 6.5 3 - 15 % [facility] Eosinophils % 2.0 0.0 - 6.0 % [facility] Basophils % 0.3 0.0 - 1.5 % [facility] Neutrophils Absolute 4.1 1.7 - 7.0 10^3/uL [facility] Lymphocyte Absolute 1.8 0.8 - 2.9 10^3/uL [facility] Monocytes Absolute 0.4 0.14 - 0.66 10^3/uL [facility] Eosinophils Absolute 0.13 0.00 - 0.22 10^3/uL [facility] Basophils Absolute 0.02 0.02 - 0.06 10^3/uL [facility] Differential Type AUTO DIFFERENTIAL [facility] Venous blood specimen (specimen) 10/09/2013 2:44 PM HOSPITAL PRODUCT SPECIALIST 10/09/2013 2:44 PM HOSPITAL PRODUCT SPECIALIST Memo Workman MD LAB - HEMATOLOGY ORD ERABLES [facility] [address] [phone] * (ABNORMAL) DRUG ABUSE PANEL 10-20+ETHANOL URINE NO CONFIRM (10/09/2013 2:43 PM HOSPITAL PRODUCT SPECIALIST) Amphetamines NEGATIVE NEGATIVE [facility] Comment:Positive Cutoff: >=1 000 ng/mL Barbiturate NEGATIVE NEGATIVE [facility] Comment:Positive Cutoff: >=2 00 ng/mL Benzodiazepine Screen Urine POSITIVE(A) NEGATIVE [facility] Comment:Positive Cutoff: >=2 00 ng/mL Opiates POSITIVE(A) NEGATIVE [facility] Comment:Positive Cutoff: >=3 00 ng/mL Cocaine Metabolite Urine NEGATIVE NEGATIVE [facility] Comment:Positive Cutoff: >=3 00 ng/mL Phencyclidine Screen Urine NEGATIVE NEGATIVE [facility] Comment:Positive Cutoff: >=2 5 ng/mL Cannabinoids Screen Urine NEGATIVE NEGATIVE [facility] Comment:Positive Cutoff: >=5 0 ng/mL Methadone NEGATIVE NEGATIVE [facility] Comment:Positive Cutoff: >=3 00 ng/mL Note SEE NOTE [facility] Comment: Positive results should be confirmed by another generally accepted non-immunological method such as gas chromatography or mass spectrometry. Toxicology testing by the [facility] is an aid to medical diagnosis and treatment of patients. No documented chain of custody was maintained. Results are intended to be used for clinical purposes only. Note SEE NOTE [facility] Comment: The UTOX Panel does not screen for Propoxyphene, Meprobamate, Carisoprodol, Trazodone, [id number]-rvw-[id number] medications and/or volatiles (Acetone, Isopropanol, Methanol, Ethylene Glycol). Ethanol, Salicylate, Acetaminophen, Tricyclic Antidepressants and several therapeutic drugs may be individually assayed in a serum specimen. Urine specimen (specimen) 10/09/2013 2:43 PM HOSPITAL PRODUCT SPECIALIST 10/09/2013 2:44 PM HOSPITAL PRODUCT SPECIALIST Memo Workman MD LAB - URINE CHEMISTR Y ORDERABLES Performing Organization Address [facility]/ZIP Co de Phone Number [address] [phone] * URINALYSIS REFLEX TO MICROSCOPIC NO CULTURE (10/09/2013 2:43 PM HOSPITAL PRODUCT SPECIALIST) Color UA YELLOW STRW,YELLOW [facility] Clarity UA CLEAR CLEAR [facility] Specific [place] Urine 1.011 1.001 - 1.030 [facility] pH UA 5.5 5.0 - 8.0 [facility] Protein UA NEGATIVE <20 mg/dL [facility] Glucose UA NEGATIVE NEGATIVE mg/dL [facility] Ketones NEGATIVE NEGATIVE mg/dL [facility] Bilirubin UA NEGATIVE NEGATIVE mg/dL [facility] Blood UA NEGATIVE NEGATIVE [facility] Nitrite UA NEGATIVE NEGATIVE [facility] Leukocyte Esterase NEGATIVE NEGATIVE [facility] Urobilinogen UA < 2.0 <2.0 mg/dL [facility] UA Micro Reflex NO [facility] Urine specimen (specimen) 10/09/2013 2:43 PM HOSPITAL PRODUCT SPECIALIST 10/09/2013 2:44 PM HOSPITAL PRODUCT SPECIALIST Memo Workman MD LAB - URINALYSIS ORD ERABLES Performing Organization Address [facility] Co de Phone Number [address] [phone] * EKG 12-LEAD (10/09/2013 12:00 AM HOSPITAL PRODUCT SPECIALIST) EKG [facility] Comment: Exam Date/Time: ?? Oct 09 2013 17:09:15 Test Reason : abdominal pain Blood Pressure : / mmHG Vent. Rate : 092 BPM ? Atrial Rate : 092 BPM ?? P-R Int : 138 ms ?QRS Dur : 098 ms ?QT Int : 358 ms ? P-R-T Axes : 049 036 008 degrees ?? QTc Int : 442 ms Normal sinus rhythm Nonspecific ST and T wave abnormality When compared with ECG of 19-JUL-2012 01:24, No significant change was found Confirmed by Olivia HERNANDEZ, UCHE ([id number]), assistant film editor MARCELLE KELLY ([id number]) on 10/19/2013 11:39:43 AM Referred By: REFERRING NO ? Confirmed By:UCHE HERNANDEZ M.D 10/09/2013 Bertha Guerra MD ECG ORDERABLES [facility] documented in this encounter Visit Diagnoses Diagnosis Abdominal pain, generalized documented in this encounter Care Teams Rf Test Technician Relationship Specialty Start Date End Date None, Pcp No [place] [address] PCP - General Nurse Practitioner 02/02/13 Jessica Waters MD [address] Garcia [address] [place] [address] [phone] PCP - General Internal Medicine 07/29/15 07/17/19 documented as of this encounter
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
--- OUTSIDE RECORDS SUMMARY | 2024-09-10 03:45 | XMS_ITS | Encounter Summary ---
Author Organization [facility] Address [address] [place] [address] Care Team Providers Care Well Drill Operator Rotary Drill Name Role Phone Nopcp, Patient Primary Care Provider Unavailabl e Reason for Visit * Reason Comments Anxiety ran out of meds 2 da ys ago-in between meds Encounter Details Date Type Department Care Team (Late st Contact Info) Description 11/23/2009 4:30 PM SURGEON PARTNER - 11/23/2009 6:17 PM SURGEON PARTNER Emergency ER at [address] [address] Raza Morgan MD [address] [place] [address] [place] [address] Anxiety Disorder (Primary Dx); Panic Disorder without Agoraphobia Discharge Disposition: Home or Self Care Social [...] Sign Reading Time Taken Comments Blood Pressure 138/72 11/23/2009 6:17 PM SURGEON PARTNER Pulse 78 11/23/2009 6:17 PM SURGEON PARTNER Temperature 36.4 ??C (97.5 ??F) 11/23/2009 4:36 PM CS T Respiratory Rate 18 11/23/2009 6:17 PM SURGEON PARTNER Oxygen Saturation 100% 11/23/2009 6:17 PM SURGEON PARTNER Inhaled Oxygen Concentration - - Weight 105.7 kg (233 lb) 11/23/2009 4:36 PM SURGEON PARTNER Height 188 cm (6' 2 ) 11/23/2009 4:36 PM SURGEON PARTNER Body Mass Index 29.92 11/23/2009 4:36 PM SURGEON PARTNER documented in this encounter Discharge Instructions * Discharge Instructions* Raza Morgan MD - 11/23/2009 6:00 PM SURGEON PARTNER Anxiety and Panic Attacks Your caregiver has informed you that you are having an anxiety or panic attack. There may be many forms of this. Most of the time these attacks come suddenly and without warning. They come at any time of day, including periods of sleep, and at any time of life. They are may be strong and unexplained. Sometimes we do not know what is producing our anxiety and it gets out of control. It is usually this anxiety that brings us to the emergency room with hyperventilation syndrome, panic attack, or an sudden attack of anxiety. Anxiety is a protective mechanism of the body in its fight or flight mechanism. In modern society most of these danger situations we perceive are actually nonphysical. Anxiety over losing a job for example may be protective in that it gives an added push to search for a new job. It is not difficult for a person to recognize when they are having a panic attack. Some of the mostcommon feelings are: ?? Intense terror Dizziness, feeling faint Hot and cold flashes Fear of going crazy Feelings that nothing is real Sweating, trembling ?? Chest pain and palpitations (irregular heart) Shaking Smothering, choking sensations (feelings) Feelings of impending doom and that is near Tingling of extremities (arms/hands and legs/feet), this may be from over breathing All of these most common symptoms (problems) and can combine to make up panic attacks. Few things trigger as much fear as this symptom complex (collection of problems) does. These attacks have many names with slight differences. For example: obsessive- compulsive disorders where repeating the compulsion again removes the anxiety temporarily; post traumatic stress disorders where a previous trauma causes the repeat bouts of anxiety; phobias or fear associated with objects, situations etc.; generalized anxiety disorders. Today you may have been given an anti-anxiety agent. This may make you drowsy, but will remove the feelings of panic and anxiety. If these symptoms return, see your caregiver or return to this location. Remember - some of these feelings to lesser degrees may be just plain, good old fashioned, entirelyappropriate worry. The good news is, ???you are not crazy,?? nor are you headed that way. There are medications to treat you and your caregiver can and will help you through this. With help, you will soon feel normal again. Other treatments that may help are therapy and exercise. If you know the cause of your anxiety, removal or avoidance of that cause will help. Document Released: 08/30/2006 Document Re-Released: 02/21/2007 ExitCare?? Patient Information ??2008 [employer]. EON PARTNER * Discharge Instructions* Document, Scanned - 11/23/2009 12:00 AM SURGEON PARTNER documented in this encounter Medications at Time of Discharge Medication Sig Dispensed Refills Start Date End Date alprazolam (XANAX) 2 MG tablet Take 1 Tab by mouth 3 times daily as needed for Anxiety. 15 0 11/23/2009 01/30/2012 LEXAPRO 10 MG tablet Take 10 mg by mouth daily. 01/30/2012 PRILOSEC PO Take by mouth as needed 12/05/2009 sucralfate (CARAFATE) 1 GM/10ML suspension Take 10 mL by mouth every 6 hours as needed 420 ml 0 11/23/2009 01/30/2012 XANAX 2 MG tablet Take 2 mg by mouth 3 times daily. Ran out of script 12/05/2009 documented as of this encounter ED Notes * Raza Morgan MD - 11/23/2009 5:11 PM CST 11/23/2009 5:11 PM History Chief Complaint Patient presents with ??? Anxiety ran out of meds 2 days ago-in between meds HPI Comments: Pt presents due to anxiety, 'panic attacks' since running out of xanax 2 days ago. He apparently has been on xanax chronically for some time, was seeing a psychiatrist in [place], who retired from practice in September. He is scheduled to see a new MD, Dr. Snyder on [facility] next (11/28), through whom he will be able to get rx. He reports lots of stress recently, brother recently . He feels that Lexapro is not working well. He notes that he lives in [place], but spends a lot of time in [facility] with his girlfriend. He also notes that he is being treated for diverticulitis with cipro/flagy, stopped taking cipro because he does not like how it makes him feel. Past Medical History Diagnosis Date ??? DEPRESSION ??? ANXIETY ??? Panic Attacks ??? Diverticulitis ??? GERD (Gastroesophageal Reflux Disease) ??? Diverticulosis of the Colon Past Surgical History Procedure Date ??? Pchg removal gallbladder History Social History ??? Marital Status: Spouse Name: N/A Number of Children: N/A ??? Years of Education: N/A Occupational History ??? Not on file. Social History Main Topics ??? Tobacco Use: Never ??? Alcohol Use: No ??? Drug Use: No ??? Sexually Active: Not on file Other Topics Concern ??? Not on file Social History Narrative ??? No narrative on file Review of Systems Constitutional: Negative. Cardiovascular: Negative. Respiratory: Negative. Gastrointestinal: Positive for nausea and abdominal pain (residual from diverticulitis). Negative for blood in stool. Genitourinary: Negative. Psychiatric: Positive for depression. Is nervous/anxious. There is no substance abuse. All other systems reviewed and are negative. BP 146/84 Pulse 101 Temp 97.5 ??F Resp 16 Wt 233 lb (105.688 kg) Physical Exam Nursing note and vitals reviewed. Constitutional: He is oriented and well-developed, well-nourished, and in no distress. HENT: Head: Normocephalic and atraumatic. Neck: Neck supple. Cardiovascular: Normal rate, regular rhythm and normal heart sounds. Pulmonary/Chest: Effort normal and breath sounds normal. Neurological: He is alert and oriented. Gait normal. GCS score is 15. Skin: Skin is warm and dry. Psychiatric: Mood and affect normal. Mildly anxious EKG Interpretation Lab Interpretation Urinalysis:normal Oxygen Saturation Interpretation Results for orders placed during the hospital encounter of 11/23/2009 URINALYSIS ROUTINE W/REFLEX TO CULTURE Component Value Range ??? Source clean catch ??? Color UA Yellow ??? Character UA Clear ??? Specific [place] UA 1.015 1.002 - 1.030 ??? pH UA 5.0 5.0 - 8.0 ??? Protein UA NEGATIVE NEG ??? Blood UA NEGATIVE NEG ??? Leukocyte UA NEGATIVE NEG ??? Nitrite UA NEGATIVE NEG ??? Glucose UA NEGATIVE NEG ??? Ketone UA NEGATIVE NEG ??? Bili UA NEGATIVE NEG ??? Urobilinogen UA 0.2 0.1 - 1.0 (E.U./dl) ??? UA Culture No culture to be done per protocol. Progress Notes Prior charts reviewed. Some question of xanax-seeking behavior at [facility] in Oct, but no other obviousdrug-seeking visits noted. Checked with [facility] (no records) and [facility] (mult rx at [facility], but no xanax since 06/21). Discussed need for refills with PMD/Psych, not in ED, but given no other route for refill and potential for benzo withdrawal syndrome, will give short refill this time so that pt can get further refills from Dr. Snyder. Pt notes that when he was dx with diverticulitis, that he also was told that he may have UTI, whichhe felt was strange. Offered to recheck urine, pt agrees. Pt also requests Rx for carafate as this helps his indigestion a lot. Rec PPI and zantac as pt notes a lot of indigestion lately. He also notes still taking flagyl and amoxicillin for diverticulitis. How long should he keep taking meds? Recommended to continue For course prescribed, probably needs to see PMD or GI for followup.He reports that he has f/u with GI physician at [facility] in 2 weeks. Procedures Diagnosis Encounter Diagnoses Name Primary? ANXIETY DISORDER Yes ??? Panic Disorder without Agoraphobia ED Plan/Course: Medications Current outpatient prescriptions Medication Sig Dispense Refill ??? alprazolam (XANAX) 2 MG tablet Take 1 Tab by mouth 3 times daily as needed for Anxiety. 15 0 ??? sucralfate (CARAFATE) 1 GM/10ML suspension Take 10 mL by mouth every 6 hours as needed 420 ml 0 ??? XANAX 2 MG tablet Take 2 mg by mouth 3 times daily. Ran out of script ??? LEXAPRO 10 MG tablet Take 10 mg by mouth daily. ??? PRILOSEC PO Take by mouth as needed Medical Decision Making I have reviewed the: Nursing Notes and Vitals. I have interpreted the following results: Labs. EON PARTNER documented in this encounter Miscellaneous Notes * Miscellaneous Scans - Document, Scanned - 11/23/2009 12:00 AM SURGEON PARTNER documented in this encounter Plan of Treatment Not on file documented as of this encounter Procedures Procedure Name Priority Date/Time Associated Diagnosis Comments URINALYSIS REFLEX MICROSCOPIC REFLEX CULTURE STAT 11/23/2009 5:15 PM SURGEON PARTNER Panic Disorder without Agoraphobia documented in this encounter Results * URINALYSIS ROUTINE W/REFLEX TO CULTURE (11/23/2009 5:15 PM SURGEON PARTNER) Source clean catch [facility] Color UA Yellow [facility] Character UA Clear [facility] Specific [place] UA 1.015 1.002 - 1.030 [facility] pH UA 5.0 5.0 - 8.0 [facility] Protein UA NEGATIVE NEG [facility] Blood UA NEGATIVE NEG [facility] Leukocyte UA NEGATIVE NEG [facility] Nitrite UA NEGATIVE NEG [facility] Glucose UA NEGATIVE NEG [facility] Ketone UA NEGATIVE NEG [facility] Bilirubin UA NEGATIVE NEG [facility] Urobilinogen UA 0.2 0.1 - 1.0 E.U./dl [facility] Culture Urine No culture to be done per protocol. [facility] URINE SPECIMEN COLLECTION, CATHETERIZED / Unknown 11/23/2009 5:15 PM SURGEON PARTNER 11/23/2009 5:20 PM SURGEON PARTNER Raza Morgan MD LAB - URINALYSIS ORD ERABLES [facility] [address] [place] [address] documented in this encounter Visit Diagnoses Diagnosis Anxiety disorder- Primary Anxiety state, unspecified Panic disorder without agoraphobia documented in this encounter Administered Medications Inactive Administered Medications - up to 3 most recent administrations Medication Order MAR Action Action Date Dose Rate Site ondansetron (disintegrating) (ZOFRAN ODT) tablet 8 mg 8 mg, Oral, ONCE, 1 dose, On 11/23/09 at 1715 $ Given 11/23/2009 5:16 PM SURGEON PARTNER 8 mg documented in this encounter Active and Recently Administered Medications Times are shown in SURGEON PARTNER. Scheduled Medication Order 11/21/2009 11/22/2009 11/23/2009 ondansetron (disintegrating) (ZOFRAN ODT) tablet 8 mg (COMPLETED) 8 mg, Oral, ONCE, 1 dose, On 11/23/09 at 1715 1716 ($ Given - Prov ider: Beverley Curtis RN) documented in this encounter Care Teams Well Drill Operator Rotary Drill Relationship Specialty Start Date End Date Nopcp, Patient PCP - General 11/23/09 01/02/10 documented as of this encounter
--- OUTSIDE RECORDS SUMMARY | 2024-09-10 03:45 | XMS_ITS | Encounter Summary ---
Author Organization [facility] Address [address] [place] [address] Care Team Providers Care License Clerk Name Role Phone Nopcp, Patient Primary Care Provider Unavailabl e Reason for Visit * Reason Comments PANIC ATTACK Stated ran out of me dications and feels panic Encounter Details Date Type Department Care Team (Late st Contact Info) Description 01/03/2010 1:37 PM CDT - 01/03/2010 4:43 PM CDT Emergency ER at [facility] [address] [place] [id number] Raza Basilio MD [address] [place] [id number] Panic Attack; Anxiety State, Unspecified Discharge Disposition: Home or Self Care Social [...] Sign Reading Time Taken Comments Blood Pressure 129/91 01/03/2010 3:37 PM CDT Pulse 105 01/03/2010 1:41 PM CDT Temperature 36.8 ??C (98.2 ??F) 01/03/2010 1:41 PM CD T Respiratory Rate 18 01/03/2010 1:41 PM CDT Oxygen Saturation 100% 01/03/2010 1:41 PM CDT Inhaled Oxygen Concentration - - Weight - - Height - - Body Mass Index - - documented in this encounter Discharge Instructions * Discharge Instructions* Babak Veras PA - 01/03/2010 4:19 PM CDT Anxiety and Panic Attacks Your caregiver has [...] will help. Document Released: 08/30/2006 Document Re-Released: 09/18/2008 ExitCare?? Patient Information ??2009 [employer]. * Discharge Instructions* Document, Scanned - 01/03/2010 12:00 AM CDT documented in this encounter Medications at Time of Discharge Medication Sig Dispensed Refills Start Date End Date alprazolam (XANAX) 0.25 MG tablet Take 4 Tabs by mouth 3 times daily as needed for Anxiety. 10 0 01/03/2010 01/08/2010 alprazolam (XANAX) 2 MG tablet Take 1 Tab by mouth 3 times daily as needed for Anxiety. 10 0 12/05/2009 08/03/2012 alprazolam (XANAX) 2 MG tablet Take 1 Tab by mouth 3 times daily as needed for Anxiety. 10 zero 11/30/2009 01/30/2012 alprazolam (XANAX) 2 MG tablet Take 1 Tab by mouth 3 times daily as needed for Anxiety. 15 0 11/23/2009 01/30/2012 escitalopram (LEXAPRO) 10 MG tablet Take 1 Tab by mouth daily. 10 0 01/03/2010 02/02/2010 LEXAPRO 10 MG tablet Take 10 mg by mouth daily. 01/30/2012 sucralfate (CARAFATE) 1 GM/10ML suspension Take 10 mL by mouth every 6 hours as needed 420 ml 0 11/23/2009 01/30/2012 documented as of this encounter ED Notes * Babak Veras PA - 01/03/2010 3:44 PM CDT 01/03/2010 3:44 PM History Chief Complaint Patient presents with ??? PANIC ATTACK Stated ran out of medications and feels panic Psych Disorder The history is provided by the patient. This is a chronic problem. The patient was referred by self.The current episode started more than 1 week ago. The primary symptoms include agitated,anxiety,panic attack and nervousness.The primary symptoms do not include depression,suicidal thoughts,suicidal a ttempt,homicidal,stress,hallucinating,bizzare behavior or agressive behavior.Precipitating factors include noncompliant.Associated symptoms include agitated.Pertinent negatives include no loss of appetite,no dysphoria,no tremulousness,no delusions,no drug/alcohol abuse,no paranoid,no angry,no hostil e,no depressed,no self injury or no frustrated. Past Medical History Diagnosis Date ??? DEPRESSION ??? ANXIETY ??? Panic Attacks ??? Diverticulitis ??? GERD (Gastroesophageal Reflux Disease) ??? Diverticulosis of the Colon Past Surgical History Procedure Date ??? Pchg removal gallbladder ??? Cholecystectomy History Social History ??? Marital Status: Spouse Name: N/A Number of Children: N/A ??? Years of Education: N/A Occupational History ??? Not on file. Social History Main Topics ??? Tobacco Use: Quit ??? Alcohol Use: No ??? Drug Use: No ??? Sexually Active: Not on file Other Topics Concern ??? Not on file Social History Narrative ??? No narrative on file Medications Current outpatient prescriptions Medication Sig Dispense Refill ??? alprazolam (XANAX) 0.25 MG tablet Take 4 Tabs by mouth 3 times daily as needed for Anxiety. 10 0 ??? escitalopram (LEXAPRO) 10 MG tablet Take 1 Tab by mouth daily. 10 0 ??? alprazolam (XANAX) 2 MG tablet Take 1 Tab by mouth 3 times daily as needed for Anxiety. 10 0 ??? alprazolam (XANAX) 2 MG tablet Take 1 Tab by mouth 3 times daily as needed for Anxiety. 10 zero ??? alprazolam (XANAX) 2 MG tablet Take 1 Tab by mouth 3 times daily as needed for Anxiety. 15 0 ??? sucralfate (CARAFATE) 1 GM/10ML suspension Take 10 mL by mouth every 6 hours as needed 420 ml 0 ??? LEXAPRO 10 MG tablet Take 10 mg by mouth daily. Review of Systems All other systems reviewed and are negative. BP 129/91 Pulse 105 Temp 98.2 ??F Resp 18 Physical Exam Nursing note and vitals reviewed. Constitutional: He is oriented and well-developed, well-nourished, and in no distress. HENT: Head: Normocephalic and atraumatic. Eyes: Extraocular motions are normal. Pupils are equal, round, and reactive to light. Neck: Normal range of motion. Neck supple. Cardiovascular: Normal rate, regular rhythm and normal heart sounds. Pulmonary/Chest: Effort normal and breath sounds normal. Abdominal: Bowel sounds are normal. Soft. Musculoskeletal: Normal range of motion. Neurological: He is alert and oriented. Skin: Skin is warm and dry. Psychiatric: Memory normal. His mood appears anxious. He is agitated. He does not exhibit a depressed mood. He expresses no homicidal and no suicidal ideation. He expresses no suicidal plans and no homicidal plans. EKG Interpretation Clinical Impression: normal EKG. Rhythm: sinus tachycardia. Rate: tachycardic. Heart rate:111. Ectopy: none. Blocks: none. Tell: normal. T-Waves: normal. There was a previous EKG available for comparison. Date of previous EK07/01/2005. ECG Rhythm Interpretation Lab Interpretation CPK:,CK-MB:normal,Myoglobin:normal and Myoglobin #2:Troponin:normal and Troponin #2: BNP:normal : Urine Drug Screen: Positive Benzodiazepines, Opiates. Oxygen Saturation Interpretation Medical Decision Making Progress Notes [place] phoned to check for listing for Dr. Farooq two listings (BOTTLE WASHER and and anesthesologist). Procedures ED Plan/Course: Advised patient to keep scheduled appointment with Dr. Farooq for futher evaluation. Diagnosis Encounter Diagnoses Name Primary? Panic Attack ??? ANXIETY STATE, UNSPECIFIED * Carlos Sullivan MD - 01/03/2010 3:44 PM CDT Pt seen and evaluated and case discussed with FIRE INSPECTOR/PA in detail; Agree with assessment and plan as per FIRE INSPECTOR/PA note. * Merna Garibay RN - 01/03/2010 3:11 PM CDT Pt nauseated. Denies CP. St ates hx anxiety. Out of xanax. Multiple recent prescriptions for xanax noted. Pt states he is to f/u with a new psychiatrist on Thur. (Dr. Farooq or something per patient). documented in this encounter Miscellaneous Notes * Miscellaneous Scans - Document, Scanned - 01/03/2010 12:00 AM CDT documented in this encounter Plan of Treatment Not on file documented as of this encounter Procedures Procedure Name Priority Date/Time Associated Diagnosis Comments B-TYPE NATRIURETIC PEPTIDE - POINT OF CARE STAT 01/03/2010 3:41 PM CDT Anxiety State, Unspecified MYOGLOBIN BLOOD - POINT OF CARE STAT 01/03/2010 3:41 PM CDT Anxiety State, Unspecified TROPONIN - POINT OF CARE STAT 01/03/2010 3:41 PM CDT Anxiety State, Unspecified CKMB - POINT OF CARE STAT 01/03/2010 3:41 PM CDT Anxiety State, Unspecified DRUG SCREEN URINE TRIAGE PANEL STAT 01/03/2010 3:18 PM CDT Anxiety State, Unspecified EKG 12-LEAD STAT 01/03/2010 Panic Attack documented in this encounter Results * MYOGLOBIN BLOOD - POINT OF CARE (01/03/2010 3:41 PM CDT) Myoglobin POCT 61.5 <=170 ng/ml [facility] Performed by [facility] Performed In ER [facility] BLOOD SPECIMEN / Unknown 01/03/2010 3:41 PM CDT 01/03/2010 3:42 PM CDT Er LAB - POINT OF CARE ORDERABLES [facility] [address] [place] [address] * TROPONIN - POINT OF CARE (01/03/2010 3:41 PM CDT) Troponin I POCT < 0.05 SEE BELOW ng/ml [facility] Comment: Normal ? <0.05 Indeterminate 0.05-0.39 Abnormal >0.4 Performed by [facility] Performed In ER [facility] BLOOD SPECIMEN / Unknown 01/03/2010 3:41 PM CDT 01/03/2010 3:42 PM CDT Er LAB - POINT OF CARE ORDERABLES Performing Organization Address [facility] Co de Phone Number [facility] [address] [place] [address] * B-TYPE NATRIURETIC PEPTIDE - POINT OF CARE (01/03/2010 3:41 PM CDT) BNP POCT < 5.0 <=100 pg/ml [facility] Performed by [facility] Performed In ER [facility] BLOOD SPECIMEN / Unknown 01/03/2010 3:41 PM CDT 01/03/2010 3:42 PM CDT Er LAB - POINT OF CARE ORDERABLES Performing Organization Address [facility] Co de Phone Number [facility] [address] [place] [address] * CKMB - POINT OF CARE (01/03/2010 3:41 PM CDT) Pathologist [facility] CK-MB POCT < 1.0 <=8.0 ng/ml [facility] Performed by [facility] Performed In ER [facility] BLOOD SPECIMEN / Unknown 01/03/2010 3:41 PM CDT 01/03/2010 3:42 PM CDT Er LAB - POINT OF CARE ORDERABLES Performing Organization Address [facility] Co de Phone Number [facility] [address] [place] [address] * (ABNORMAL) DRUG SCREEN TRIAGE PANEL (01/03/2010 3:18 PM CDT) Phencyclidine Screen Urine Negative Negative ng/ml [facility] Benzodiazepines Screen Urine Presumptive Positive(AA) Negative ng/ml [facility] Cocaine Screen Urine Negative Negative ng/ml [facility] Amphetamines Screen Urine Negative Negative ng/ml [facility] Cannabinoids Screen Urine Negative Negative ng/ml [facility] Opiate Screen Urine Presumptive Positive(AA) Negative ng/ml [facility] Barbiturates Screen Urine Negative Negative ng/ml [facility] URINE / Unknown 01/03/2010 3 :18 PM CDT 01/03/2010 3:31 PM CDT Babak Veras PA-C LAB - URINE CHEMISTR Y ORDERABLES [facility] [address] [place] [address] * EKG 12-LEAD (01/03/2010) Babak Veras PA-C ECG ORDERABLES documented in this encounter Visit Diagnoses Diagnosis Panic attack Panic disorder without agoraphobia Anxiety state, unspecified documented in this encounter Administered Medications Inactive Administered Medications - up to 3 most recent administrations Medication Order MAR Action Action Date Dose Rate Site alprazolam (XANAX) tablet 2 mg 2 mg, Oral, ONCE, 1 dose, On Wed01/03/10 at 1545 $ Given 01/03/2010 3:49 PM CDT 2 mg ondansetron (disintegrating) (ZOFRAN ODT) tablet 4 mg 4 mg, Oral, ONCE, 1 dose, On Wed01/03/10 at 1430 $ Given 01/03/2010 3:29 PM CDT 4 mg $ Given 01/03/2010 2:31 PM CDT 4 mg ONDANSETRON 4 MG PO TBDP 1 dose, Starting on Wed01/03/10 at 1431, Until Wed01/03/10 at 1432, MERNA GARIBAY: Cabinet Override documented in this encounter Active and Recently Administered Medications Times are shown in CDT. Scheduled Medication Order 01/01/2010 01/02/2010 01/03/2010 alprazolam (XANAX) tablet 2 mg (COMPLETED) 2 mg, Oral, ONCE, 1 dose, On Wed01/03/10 at 1545 1549 ($ Given - Prov ider: Merna Garibay RN) ondansetron (disintegrating) (ZOFRAN ODT) tablet 4 mg (COMPLETED) 4 mg, Oral, ONCE, 1 dose, On Wed01/03/10 at 1430 1431 ($ Given - Prov ider: Merna Garibay RN)1529 ($ Given - Provider: Merna Garibay RN) documented in this encounter Care Teams License Clerk Relationship Specialty Start Date End Date Nopcp, Patient PCP - General 01/03/10 07/04/12 documented as of this encounter
--- OUTSIDE RECORDS SUMMARY | 2024-09-10 03:45 | XMS_ITS | Encounter Summary ---
Author Organization [facility] Health Address [address] [place] [address] Care Team Providers Care Commercial Loan Administrator Name Role Phone Unavailable Primary Care Provider Unavailabl e Reason for Visit * Reason Comments General Encounter Details Date Type Department Care Team (Late st Contact Info) Description 09/01/2019 4:00 PM TRANSITIONS RN CARE COORDINATOR Office Visit [facility] Internal Medicine [address] [place] [address] Radha Palafox, ROLLER SETTER-PERSONAL SUPPORT WORKER [address] [facility] [address] [facility] [place] [id number] Type 2 diabetes mellitus without complication, without long-term current use of insulin (HCC) (Primary Dx); Essential hypertension Social History Tobacco Use Types Packs/Day Years [...] Sign Reading Time Taken Comments Blood Pressure 142/88 09/01/2019 4:19 PM TRANSITIONS RN CARE COORDINATOR Pulse 78 09/01/2019 4:19 PM TRANSITIONS RN CARE COORDINATOR Temperature 36.5 ??C (97.7 ??F) 09/01/2019 4:19 PM CS T Respiratory Rate - - Oxygen Saturation 96% 09/01/2019 4:19 PM TRANSITIONS RN CARE COORDINATOR Inhaled Oxygen Concentration - - Weight 134.7 kg (297 lb) 09/01/2019 4:19 PM TRANSITIONS RN CARE COORDINATOR Height 185.4 cm (6' 1 ) 09/01/2019 4:19 PM TRANSITIONS RN CARE COORDINATOR Body Mass Index 39.18 09/01/2019 4:19 PM TRANSITIONS RN CARE COORDINATOR documented in this encounter Patient Instructions * Patient Instructions* Venus Powell - 09/01/2019 5:05 PM TRANSITIONS RN CARE COORDINATOR How to Contact Us Between Office Visits If you need to make an appointment with your doctor, please do so before you leave today. If you become ill and need to be seen before your next visit, you can call for a same day appointment through the Acute Care Service. Acute Care appointments with one of the physicains in the practice are generally made thesame day that you need to be seen. Please call us at [phone], option 1 thenoption 1 in the morning you would like to be seen. For scheduling routine appointments, requesting refills or leaving a message for your doctor, the office phone is [phone]. You will be given options to get to the assistance you need. Phone lines are open from 8:00 am to4:30 pm Wednesday through Wednesday. All prescription refills must be requested during regular office phone hours. Our fax number is [phone]. After hours urgent calls that cannot wait untill phone lines are open on the next business day are given to the General Internal Medicine physician instructional systems specialist. Please call [phone]. Identify yourself as a patient in our practice and give the cat scanner operator your doctor's name. The cat scanner operator will contact the physician instructional systems specialist. You can generally expect a return call within 30 minutes. On weekends, physicians are seeing hospitalized patients and there maybe a longer wait. Visit our website at [email or web address] for information about our practice and an interactive health encyclopedia. Our clinic's missed appointment policy is: - Patients with 3 consecutively missed appointments OR 3 missed appointments in a 12 month period will no longer be seen by General Internal Medicine. They will be asked to seek Primary Care outside of [facility]. - A missed appointment is defined as: * An appointment cancelled less than 24 hours in advance *Arriving to a scheduled appointment too late to be seen (Patients who arrive to clinic later than their scheduled appointment time may not be seen) * Not showing up for an appointment SITIONS RN CARE COORDINATOR documented in this encounter Progress Notes * Radha Palafox, ROLLER SETTER-PERSONAL SUPPORT WORKER - 09/01/2019 5:40 PM CST HPI: Carlos Mcgee is a 49 year old male is here for routine visit. CC: Eyes burn and itch x several weeks. Went to Urgent care and was give Azelastine eye drops--do not help. Has been on Maxitrol in past and helped in past. DID not have labs drawn ordered last visit. Patient Active Problem List: Chest pain Panic attack Colitis Diverticulitis of colon Diabetes--BS run in 100--high 200 range Currently not on any meds since he claims Metformin causes his chest to hurt. Is reluctant to take any diabetic medication due to side effects. Diabetes dx about 5 yr ago. He does admit that he has never been on any medication that he could tolerate. Refuses sulfonylurea's due to sulfa allergy and refuses to try. Has been on Trujencta which caused panic attacks . Past History and Surgical History Reviewed under History tab -- Contrast-Iodinated Agents For Ct/Other -- Lidocaine -- Rash and Swelling -- Metformin -- Other -- Chest pain -- Paxil [Paroxetine] -- Percocet [Oxycodone-Acetaminophen] -- Palpitations and Other -- Pt reports that he breaks out into a sweat -- Sulfa Drugs -- Losartan -- Angioedema -- Swollen lips -- Bactrim Ds -- Rash -- Levaquin -- Hallucinations Current Outpatient Medications: albuterol HFA (PROVENTIL;VENTOLIN;PROAIR) 108 (90 Base) MCG/ACT inhaler INL 1 TO 2 PFS PO Q 4 H PRFSOB Disp: 1 Inhaler Rfl: 11 ALPRAZolam (XANAX) 2 MG tablet Take 1 Tab by mouth 2 times daily as needed for Anxiety. Disp: 40 Tab Rfl: 0 atenolol (TENORMIN) 100 MG tablet Take 1 tablet by mouth once daily Disp: 30 tablet Rfl: 5 fluticasone propionate (FLONASE) 50 MCG/ACT nasal spray [place] 2 sprays into each nostril once dailyDisp: 15.8 g Rfl: 11 omeprazole (PRILOSEC) 40 MG capsule Take 1 capsule by mouth daily before breakfast Disp: 30 capsuleRfl: 6 simethicone (GAS-X) 80 MG chew tablet Take 80 mg by mouth Disp: Rfl: sucralfate (CARAFATE) 1 GM tablet TK 1 T QID Disp: Rfl: 0 No current facility-administered medications for this visit. Review of Systems Constitutional: Positive for malaise/fatigue. HENT: Negative. Eyes: Positive for redness. Respiratory: Negative. Cardiovascular: Negative. Tells of normal cardiac cath which was done earlier this year for chest pain. Genitourinary: Nocturia x 2 usually Skin: Negative. Psychiatric/Behavioral: Positive for depression. The patient is nervous/anxious. Followed in Psych. Family and Social History Reviewed under History Tab OBJECTIVE: BP 142/88 Pulse 78 Temp 97.7 ??F (36.5 ??C) (Oral) Ht 6' 1 (1.854 m) Wt 297 lb (134.7 kg) SpO2 96%BMI 39.18 kg/m2 BP with his BP cuff--154/99 Pulse 75 BP checked by me--154/100 recheck by me He appears well, in no apparent distress. Alert and cooperative but multiple questions and concerns. Eyes--minimal erythema of conjunctiva and orbits. Lungs--clear A&P Cor--S1 S2 RRR no murmurs Ext--no edema. Recent Labs Component Name 08/01/19 HGBA1C 7.5 Wt Readings from Last 3 Encounters: 09/01/19 297 lb (134.7 kg) 08/01/19 297 lb (134.7 kg) 05/21/17 230 lb (104.3 kg) ASSESSMENT/PLAN Hypertension--borderline control. Add Lisinopril 10 mg daily. Continue Atenolol 100 mg daily Diabetes--long discussion on medications available. Finally agrees to try Jardiance but not coveredwhen he called pharmacy. Trial of Januvia 50 mg 1/2 tab daily. Could probably be controlled if he followed strict diet. Eye irritation--will order Maxitrol ophthalmic ointment TID for 1 week. Strongly recommend eye appt. He agrees but not sure where he will go. Anxiety/PTSD--followed in psychiatry. Claims not depressed. Vaccines--does not believe in vaccines. MUST get labs drawn!! RV 3-4 week. > 75% of 40+ min appointment spent discussing his multiple medical complaints and advising on medication, diet etc and discussing screening procedures, most of which he does not want. Radha Palafox ANP SITIONS RN CARE COORDINATOR * Radha Palafox APRN-CNP - 09/01/2019 4:22 PM CST SITIONS RN CARE COORDINATOR documented in this encounter Plan of Treatment Not on file documented as of this encounter Visit Diagnoses Diagnosis Type 2 diabetes mellitus without complication, without long-term current use of insulin (HCC)- Primary Essential hypertension documented in this encounter
--- OUTSIDE RECORDS SUMMARY | 2024-09-10 03:45 | XMS_ITS | Encounter Summary ---
Author Organization [facility] Address [address] [place] [address] Care Team Providers Care Infant And Toddler Teacher Name Role Phone Unavailable Primary Care Provider Unavailabl e Reason for Visit * Reason Onset Date Comments Diabetes 08/17/2019 Encounter Details Date Type Department Care Team (Late st Contact Info) Description 08/17/2019 Telephone [facility] Internal Medicine [address] [facility] [address] [place] [address] Radha Palafox APRN-CNP [address] [facility] [place] [id number] Diabetes Social History Tobacco Use Types Packs/Day Years [...] Telephone Encounter - Radha Palafox APRN-CNP - 08/17/2019 9:00 AM PICK UP DRIVER Long discussion with patient about his medication. Refuses to take Sulfonylurea. Has been on Tradjenta in past but it caused terrible panic attacks . All other medication I bring up, he tells me he has heard bad things about them. Finally agrees to retry Metformin. Took it in past for 1 month and than developed chest pains whichhe thought was due to meds. Told him it was very unlikely that Metformin would cause chest pains. Metformin XL 500 mg Daily. Keep appt end of month. MELISA Diaz UP DRIVER documented in this encounter Plan of Treatment Not on file documented as of this encounter Visit Diagnoses Not on filedocumented in this encounter
--- OUTSIDE RECORDS SUMMARY | 2024-09-10 03:45 | XMS_ITS | Encounter Summary ---
Author Organization [facility] Address [address] [place] [address] Care Team Providers Care Corporate Accounting Manager Name Role Phone None, Pcp Primary Care Provider Unavailabl e Reason for Visit * Reason Comments Pain Abdominal pt c/o mid abdominal pain; hx of diverticulitis; denies n/v/d Encounter Details Date Type Department Care Team (Late st Contact Info) Description 09/10/2013 10:45 PM GENERAL OFFICE CLERK - 09/11/2013 4:23 AM GENERAL OFFICE CLERK Emergency ER at [place] [id number] [place] [address] Graeme Ahmadi MD [address] [place] [phone] Panic attack (Primary Dx); Abdominal pain, acute; Diverticulitis Of Colon (Without Mention Of Hemorrhage) Discharge Disposition: Home or Self Care Social [...] Sign Reading Time Taken Comments Blood Pressure 150/85 09/11/2013 3:26 AM GENERAL OFFICE CLERK Pulse 86 09/11/2013 3:26 AM GENERAL OFFICE CLERK Temperature 36.8 ??C (98.3 ??F) 09/11/2013 3:26 AM CS T Respiratory Rate 22 09/11/2013 3:26 AM GENERAL OFFICE CLERK Oxygen Saturation 100% 09/11/2013 3:26 AM GENERAL OFFICE CLERK Inhaled Oxygen Concentration - - Weight 127 kg (280 lb) 09/10/2013 10:40 PM GENERAL OFFICE CLERK Height 188 cm (6' 2 ) 09/10/2013 10:40 PM GENERAL OFFICE CLERK Body Mass Index 35.95 09/10/2013 10:40 PM GENERAL OFFICE CLERK documented in this encounter Discharge Instructions * Discharge Instructions* Graeme Ahmadi MD - 09/11/2013 2:54 AM GENERAL OFFICE CLERK Images from the original note were not included. Diverticulitis Small pockets or bubbles can develop in the wall of the intestine. Diverticulitis is when those pockets become infected and inflamed. This causes stomach pain (usually on the left side). HOME CARE ?? Take all medicine as told by your doctor. ?? Try a clear liquid diet (broth, tea, or water) for as long as told by your doctor. ?? Keep all follow-up visits with your doctor. ?? You may be put on a low-fiber diet once you start feeling better. Here are foods that have low-fiber: ?? White breads, cereals, rice, and pasta. ?? Cooked fruits and vegetables or soft fresh fruits and vegetables without the skin. ?? Ground or well-cooked tender beef, ham, veal, edgar, pork, or poultry. ?? Eggs and seafood. ?? After you are doing well on the low-fiber diet, you may be put on a high- fiber diet. Here are ways to increase your fiber: ?? Choose whole-grain breads, cereals, pasta, and brown rice. ?? Choose fruits and vegetables with skin on. Do not overcook the vegetables. ?? Choose nuts, seeds, legumes, dried peas, beans, and lentils. ?? Look for food products that have more than 3 grams of fiber per serving on the food label. GET HELP RIGHT AWAY IF: ?? Your pain does not get better or gets worse. ?? You have trouble eating food. ?? You are not pooping (having bowel movements) like normal. ?? You have a temperature by mouth above 102?? F (38.9?? C), not controlled by medicine. ?? You keep throwing up (vomiting). ?? You have bloody or black, tarry poop (stools). ?? You are getting worse and not better. MAKE SURE YOU: ?? Understand these instructions. ?? Will watch your condition. ?? Will get help right away if you are not doing well or get worse. Document Released: 02/15/2009 Document Revised: 11/21/2012 Document Reviewed: 07/21/2010 ExitCare?? Patient Information ??2012 [employer]. RAL OFFICE CLERK * Discharge Instructions* Document, Scanned - 09/11/2013 6:27 PM GENERAL OFFICE CLERK RAL OFFICE CLERK documented in this encounter Medications at Time of Discharge Medication Sig Dispensed Refills Start Date End Date ALPRAZolam (XANAX) 2 MG tablet Take 1 Tab by mouth 2 times daily as needed for Anxiety. 40 Tab 0 07/18/2012 11/09/2019 ciprofloxacin (CIPRO) 500 MG tablet Take 500 mg by mouth 2 times daily. 07/30/2015 citalopram (CELEXA) 10 MG tablet Take 10 mg by mouth once daily. 08/01/2019 hydrocodone-acetaminophe n (NORCO) 5-325 MG tablet Take 1 Tab by mouth every 4 hours as needed for Pain. 10 Tab 0 09/11/2013 10/24/2016 hyoscyamine (LEVSIN) 0.125 MG tablet Take 1 Tab by mouth every 4 hours as needed for Spasms. 30 Tab 0 07/11/2012 10/24/2016 hyoscyamine 0.125 MG tablet Dissolve 1 Tab under the tongue every 4 hours as needed for Spasms. 20 Tab 0 09/11/2013 10/24/2016 hyoscyamine 0.125 MG tablet Dissolve 1 Tab under the tongue every 4 hours as needed for Spasms. 20 Tab 0 02/02/2013 10/24/2016 metroNIDAZOLE (FLAGYL) 500 MG tablet Take 500 mg by mouth 3 times daily. 07/30/2015 omeprazole (PRILOSEC) 40 MG capsule Take 1 Cap by mouth daily before breakfast. 30 Cap 0 09/11/2013 08/01/2019 promethazine (PHENERGAN) 25 MG tablet Take 1 Tab by mouth every 6 hours as needed for Nausea/Vomiting. 10 Tab 0 02/02/2013 10/24/2016 promethazine (PHENERGAN) 25 MG tablet Take 25 mg by mouth as needed. 10/24/2016 documented as of this encounter Procedure Notes * Document, Scanned - 09/11/2013 12:05 PM CSTAssociated Order(s): EKG 12-LEAD RAL OFFICE CLERK * Document, Scanned - 09/11/2013 7:42 AM CSTAssociated Order(s): EKG 12-LEAD RAL OFFICE CLERK documented in this encounter ED Notes * Radha Osborn RN - 09/11/2013 4:23 AM CST Pt given discharge instructions with scripts.vss. Pt verbalized understanding and left ambulatory with no c/at this time. RAL OFFICE CLERK * Radha Osborn RN - 09/11/2013 1:23 AM CST Late entry ; Pt Would not leave the monitor on and was requesting numerous tests. And was discharged to home, pt was given instructions and prescriptions, also, Md gave information about the test results. RAL OFFICE CLERK * Radha Osborn RN - 09/11/2013 12:52 AM CST Pt Wants to Talk to the Md about possible herpes exposure RAL OFFICE CLERK * Radha Osborn RN - 09/10/2013 11:18 PM CST Onset of pain Last , and Had left over antibiotics and started to take his med's,and TriedBeano, and Gas x With no relief, Has been taking the antibiotics for 9 days, and Has been having Normal solid BM'S, and is taking Carafate, and is having abd pains, and He states he can drink water though nothing Else, and is having Complaints Of leg pains, as well, pt is having complaints also, about having Urinary pain, . Pt is thinking he has gastris and now is having this current abd pain, pain radiates to his sternum and his Chest Hurts and pain goes into his Chest and neck into his arm, Was told by a friend that works for [employer], to get a ECG , and he thinks he has diverticulitis. The patient is taking the flagyl and Cipro . 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 EMERGENCY DEPARTMENT History Chief Complaint Patient presents with ??? Pain Abdominal pt c/o mid abdominal pain; hx of diverticulitis; denies n/v/d HPI Comments: Patient C/O multiple symptoms. Started with LLQ pain, taken Cipro and flagyl for last8 days, had URI symptoms and took amoxicillin, he then took Carafate for his GERD along with Prilosec. Wants multiple tests to see if his immune system is down? Pain Abdominal The history is provided by the patient. This is a new problem. The current episode started more than 2 days ago. The problem occurs constantly. The problem has not changed since onset.The pain is associated with an unknown factor. The pain is located in the LLQ. The quality of the pain is aching, pressure-like and burning. The pain is at a severity of 4/10. The pain is moderate. Associated symptoms include nausea. Pertinent negatives include fever, diarrhea, vomiting, dysuria, frequency, hematuria, headaches and myalgias. Associated symptoms comments: Anxiety due to family stress. Nothing worsens the pain. The pain is relieved by nothing. Past workup includes GI consult, CT scan and colonosc opy.Past workup comments: at [facility]. Risk factors for an abdominal aortic aneurysm include over 40 years old. Risk factors for a testicular torsion include none. Past Medical History Diagnosis Date ??? Depression [...] Systems Review of Systems Constitutional: Negative for fever, chills and weight loss. HENT: Negative for congestion and neck pain. Eyes: Negative. Negative for double vision and photophobia. Respiratory: Negative. Cardiovascular: Negative. Gastrointestinal: Positive for nausea and abdominal pain. Negative for vomiting, diarrhea and bloodin stool. Genitourinary: Negative for dysuria, urgency, frequency and hematuria. Musculoskeletal: Negative for myalgias and back pain. Skin: Negative for rash. Neurological: Negative for dizziness, tingling, speech change, seizures, loss of consciousness, weakness and headaches. Psychiatric/Behavioral: Negative for depression, suicidal ideas, hallucinations, memory loss and substance abuse. The patient is nervous/anxious. The patient does not have insomnia. All other systems reviewed and are negative. Physical Exam BP 150/88 Pulse 96 Temp 98.3 ??F Resp 20 Ht 1.88 m (6' 2 ) Wt 127.007 kg (280 lb) BMI 35.95 kg/m2 SpO2 97% Physical Exam Nursing note and vitals reviewed. Constitutional: He is oriented to person, place, and time and well-developed, well-nourished, and in no distress. No distress. HENT: Head: Normocephalic and atraumatic. Mouth/Throat: Oropharynx is clear and moist. Eyes: Conjunctivae normal and EOM are normal. Pupils are equal, round, and reactive to light. Neck: Normal range of motion. Neck supple. No JVD present. No tracheal deviation present. No thyromegaly present. Cardiovascular: Normal rate, regular rhythm, normal heart sounds and intact distal pulses. Exam reveals no gallop and no friction rub. No murmur heard. Pulmonary/Chest: Effort normal and breath sounds normal. No stridor. No respiratory distress. He has no wheezes. He has no rales. He exhibits no tenderness. Abdominal: Soft. Bowel sounds are normal. He exhibits no distension and no mass. There is no tenderness. There is no rebound and no guarding. Musculoskeletal: Normal range of motion. He exhibits no edema and no tenderness. Lymphadenopathy: He has no cervical adenopathy. Neurological: He is alert and oriented to person, place, and time. He has normal reflexes. No cranial nerve deficit. Gait normal. Coordination normal. GCS score is 15. Skin: Skin is warm and dry. He is not diaphoretic. Multiple tatooes noted Psychiatric: Mood, memory, affect and judgment normal. Medications Current Outpatient Prescriptions Medication Status Sig Dispense Refill ??? hyoscyamine 0.125 MG tablet Active Dissolve 1 Tab under the tongue every 4 hours as needed for Spasms. 20 Tab 0 ??? omeprazole (PRILOSEC) 40 MG capsule Active Take 1 Cap by mouth daily before breakfast. 30 Cap 0 ??? oxycodone-acetaminophen (PERCOCET) 5-325 MG tablet Active Take 1 Tab by mouth every 4 hours as needed for Pain. 20 Tab 0 ??? promethazine (PHENERGAN) 25 MG tablet Active Take 1 Tab by mouth every 6 hours as needed for Nausea/Vomiting. 10 Tab 0 ??? hyoscyamine 0.125 MG tablet Active Dissolve 1 Tab under the tongue every 4 hours as needed for Spasms. 20 Tab 0 ??? ciprofloxacin (CIPRO) 500 MG tablet Active Take 500 mg by mouth 2 times daily. ??? metroNIDAZOLE (FLAGYL) 500 MG tablet Active Take 500 mg by mouth 3 times daily. ??? hydrocodone-acetaminophen (VICODIN) 5-500 MG tablet Active Take 1 Tab by mouth nightly as needed for Pain. 20 Tab 0 ??? methylPREDNISolone (MEDROL DOSEPAK) 4 MG tablet Active Take by mouth as directed. 21 Packet 0 ??? ALPRAZolam (XANAX) 2 MG tablet Active Take 1 Tab by mouth 2 times daily as needed for Anxiety. 40 Tab 0 ??? hyoscyamine (LEVSIN) 0.125 MG tablet Active Take 1 Tab by mouth every 4 hours as needed for Spasms. 30 Tab 0 ??? promethazine (PHENERGAN) 25 MG tablet Active Take 25 mg by mouth as needed. ??? pantoprazole (PROTONIX) 40 MG packet Active Take 40 mg by mouth once daily. ??? citalopram (CELEXA) 10 MG tablet Active Take 10 mg by mouth once daily. Procedures Procedures EKG Interpretation Clinical Impression: normal EKG. Rhythm: normal sinus. Rate: normal. Marion: normal. T-Waves: normal. ECG Rhythm Interpretation Lab Interpretation Normal Labs:normal CBC and normal Chemistry Urinalysis:normal Oxygen Saturation Interpretation Measurement frequency: Spot Check. Oxygen saturation interpretation is Normal. Results for orders placed during the hospital encounter of 09/10/13 CBC W AUTO DIFFERENTIAL Component Value Range WBC 6.2 4.4-10.7 x10^9/L RBC 5.84 (*) 3.80-5.40 x10^12/L Hgb 14.6 12.0-17.6 gm/dL HCT 42.7 35.2-51.7 % MCV 73.1 (*) 80.7-98.3 fl MCH 25.0 (*) 26.7-34.0 pg MCHC 34.2 30.8-35.9 gm/dL Plt Ct 149 (*) 153-416 x10^9/L RDW-CV 15.8 (*) 12.1-14.9 % MPV 8.8 (*) 9.4-12.9 fl Neutro 56.1 44.0-73.0 % Lymph 32.6 20.0-43.0 % Alfalfa 8.1 5.0-13.0 % Eos 2.4 0.0-6.0 % Baso 0.3 0.0-2.0 % Immature Grans 0.5 0-1 % Neutro Abs 3.47 2.01-7.14 x10^9/L Lymph Abs 2.02 1.07-3.94 x10^9/L Alfalfa Abs 0.50 0.26-1.07 x10^9/L Eosin Abs 0.15 0-0.47 x10^9/L Baso Abs 0.02 0-0.08 x10^9/L NRBC Auto 0 COMPREHENSIVE METABOLIC PANEL Component Value Range Glucose 76 74-106 mg/dL Sodium 138 136-145 mmol/L Potassium 3.9 3.5-5.1 mmol/L Chloride 103 98-107 mmol/L CO2 28 22-31 mmol/L Calcium 9.3 8.5-10.1 mg/dL Anion Gap 7 5-15 mmol/L BUN 11 7-21 mg/dL Creatinine 0.53 0.50-1.30 mg/dL eGFR by MDRD >60 >60 mL/min/1.73m2 eGFR by MDRD AFR AMER >60 >60 mL/min/1.73m2 Alk Phos 85 38-126 U/L ALT/SGPT 128 (*) 12-78 U/L AST/SGOT 100 (*) 5-40 U/L Protein Total 8.3 (*) 6.4-8.2 gm/dL Albumin 3.9 3.4-5.0 gm/dL Bili Total 1.1 (*) 0.2-1.0 mg/dL URINALYSIS ROUTINE W/REFLEX TO CULTURE Component Value Range Color UA Yellow Straw, Yellow, Dark Yellow Clarity UA Clear Specific [place] UA 1.019 1.005-1.030 pH UA 6.0 5.0-8.0 pH Protein UA 1+ (*) Negative Blood UA Negative Negative Leukocyte UA Negative Negative Nitrite UA Negative Negative Glucose UA Trace (*) Negative Ketone UA Negative Negative Bili UA Negative Negative Urobilinogen UA 0.2 0.1-1.0 EU/dL WBC UA Auto 0-2 0-2, 2-5 #/hpf RBC UA Auto 2-5 0-2, 2-5 #/hpf Epithelial Cell UA Auto 0-2 0-2, 2-5 #/hpf Hyaline Casts UA Auto 0-2 0-2 #/lpf Reflex Status Culture not indicated LIPASE BLOOD Component Value Range Lipase 280 73-393 U/L INFLUENZA A+B ANTIGEN RAPID Component Value Range Influenza A Ag Negative Negative Influenza B Ag Negative Negative CT ABDOMEN AND PELVIS NON IV CONTRAST (Results Pending) Progress Notes patient is on cipro and flagyl. Wants levsin and prilosec for his GERD ED Course Medical Decision Making I have reviewed the: Nursing Notes and Vitals. I have interpreted the following results: Labs, 12 Lead EKG, CT Scans (Diverticulitis) and Oxygen Saturation. Orders Placed This Encounter ??? INFLUENZA A+B ANTIGEN RAPID ??? Stone Protocol CT ??? CBC W AUTO DIFFERENTIAL ??? COMPREHENSIVE METABOLIC PANEL ??? URINALYSIS ROUTINE W/REFLEX TO CULTURE ??? LIPASE BLOOD ??? EKG 12-LEAD ??? 0.9% NaCl injection 1-10 mL ??? ondansetron (ZOFRAN) injection 4 mg ??? hyoscyamine 0.125 MG tablet ??? omeprazole (PRILOSEC) 40 MG capsule Clinical Impression Final diagnoses: Panic attack (Primary) Abdominal pain, acute Diverticulitis of colon (without mention of hemorrhage) RAL OFFICE CLERK documented in this encounter Miscellaneous Notes * Miscellaneous Scans - Document, Scanned - 09/11/2013 6:23 PM CST RAL OFFICE CLERK * Miscellaneous Scans - Document, Scanned - 09/11/2013 6:23 PM CST RAL OFFICE CLERK documented in this encounter Plan of Treatment Not on file documented as of this encounter Procedures Procedure Name Priority Date/Time Associated Diagnosis Comments CT ABDOMEN PELVIS WO CONTRAST STAT 09/11/2013 1:56 AM GENERAL OFFICE CLERK Abdominal pain, acute CBC W AUTO DIFFERENTIAL STAT 09/11/2013 1:04 AM GENERAL OFFICE CLERK EKG 12-LEAD STAT 09/11/2013 12:18 AM GENERAL OFFICE CLERK Panic attack INFLUENZA A+B ANTIGEN RAPID STAT 09/11/2013 12:16 AM GENERAL OFFICE CLERK URINALYSIS REFLEX MICROSCOPIC REFLEX CULTURE STAT 09/11/2013 12:16 AM GENERAL OFFICE CLERK COMPREHENSIVE METABOLIC PANEL STAT 09/11/2013 12:04 AM GENERAL OFFICE CLERK LIPASE BLOOD STAT 09/11/2013 12:04 AM GENERAL OFFICE CLERK documented in this encounter Results * Stone Protocol CT (09/11/2013 1:56 AM GENERAL OFFICE CLERK) Anatomical Region Laterality Modality Abdomen, Pelvis Computed Tomogra phy 09/11/2013 9:04 AM GENERAL OFFICE CLERK Impressions 09/11/2013 10:30 AM GENERAL OFFICE CLERK The wall of the sigmoid appears thickened. Findings are concerning for colitis, diverticulitis. An underlying lesion is not excluded. Edited by Zenaida Hinton on 09/11/2013 10:07 AM Narrative 09/11/2013 10:30 AM GENERAL OFFICE CLERK CT ABDOMEN AND PELVIS WITHOUT IV CONTRAST INDICATION: Mid abdominal pain, diverticulitis. TECHNIQUE: Helical CT images of the abdomen and pelvis are obtained without IV contrast. FINDINGS: CT ABDOMEN: Scans of the lung bases are unremarkable. The liver is diffusely low in attenuation. There are clips at the gallbladder fossa. The spleen and pancreas are unremarkable. The adrenals are unremarkable. There are bilateral nonobstructing renal calculi. The largest of these is at the left in the midpole measuring 3 mm. Punctate calculi are seen throughout the right collecting system. There is no hydronephrosis. Loops of bowel are of normal caliber. CT PELVIS: The appendix is well-seen and appears unremarkable. The sigmoid colon appears thickwalled although this may be secondary to possibly adherent stool. Please correlate with the possibility of colitis, possible diverticulitis. An underlying lesion is not excluded. There is no abscess nor free air. There is a large amount of stool throughout the colon. Procedure Note Charlotte Hopkins MD - 09/11/2013 CT ABDOMEN AND PELVIS WITHOUT IV CONTRAST INDICATION: Mid abdominal pain, diverticulitis. TECHNIQUE: Helical CT images of the abdomen and pelvis are obtained without IV contrast. FINDINGS: CT ABDOMEN: Scans of the lung bases are unremarkable. The liver is diffusely low in attenuation. There are clips at the gallbladder fossa. The spleen and pancreas are unremarkable. The adrenals are unremarkable. There are bilateral nonobstructing renal calculi. The largest of these is at the left in the midpole measuring 3 mm. Punctate calculi are seen throughout the right collecting system. There is no hydronephrosis. Loops of bowel are of normal caliber. CT PELVIS: The appendix is well-seen and appears unremarkable. The sigmoid colon appears thickwalled although this may be secondary to possibly adherent stool. Please correlate with the possibility of colitis, possible diverticulitis. An underlying lesion is not excluded. There is no abscess nor free air. There is a large amount of stool throughout the colon. IMPRESSION The wall of the sigmoid appears thickened. Findings are concerning for colitis, diverticulitis. An underlying lesion is not excluded. Edited by Zenaida Hinton on 09/11/2013 10:07 AM Graeme Ahmadi MD CT ORDERABLES * (ABNORMAL) CBC W AUTO DIFFERENTIAL (09/11/2013 1:04 AM [facility]) WBC 6.2 4.4 - 10.7 x10^9/L 09/11/2013 1:12 AM [facility] RBC 5.84(H) 3.80 - 5.40 x10^12/L 09/11/2013 1:12 AM [facility] Hemoglobin 14.6 12.0 - 17.6 gm/dL 09/11/2013 1:12 AM [facility] Hematocrit 42.7 35.2 - 51.7 % 09/11/2013 1:12 AM [facility] MCV 73.1(L) 80.7 - 98.3 fl 09/11/2013 1:12 AM [facility] MCH 25.0(L) 26.7 - 34.0 pg 09/11/2013 1:12 AM [facility] MCHC 34.2 30.8 - 35.9 gm/dL 09/11/2013 1:12 AM [facility] Platelet Count 149(L) 153 - 416 x10^9/L 09/11/2013 1:12 AM [facility] RDW-CV 15.8(H) 12.1 - 14.9 % 09/11/2013 1:12 AM [facility] MPV 8.8(L) 9.4 - 12.9 fl 09/11/2013 1:12 AM [facility] Neutrophils % 56.1 44.0 - 73.0 % 09/11/2013 1:12 AM [facility] Lymphocytes % 32.6 20.0 - 43.0 % 09/11/2013 1:12 AM [facility] Monocytes % 8.1 5.0 - 13.0 % 09/11/2013 1:12 AM [facility] Eosinophils % 2.4 0.0 - 6.0 % 09/11/2013 1:12 AM [facility] Basophils % 0.3 0.0 - 2.0 % 09/11/2013 1:12 AM [facility] Immature Granulocytes 0.5 0 - 1 % 09/11/2013 1:12 AM [facility] Neutrophil Absolute 3.47 2.01 - 7.14 x10^9/L 09/11/2013 1:12 AM [facility] Lymphocytes Absolute 2.02 1.07 - 3.94 x10^9/L 09/11/2013 1:12 AM [facility] Monocytes Absolute 0.50 0.26 - 1.07 x10^9/L 09/11/2013 1:12 AM [facility] Eosinophils Absolute 0.15 0 - 0.47 x10^9/L 09/11/2013 1:12 AM [facility] Basophils Absolute 0.02 0 - 0.08 x10^9/L 09/11/2013 1:12 AM [facility] nRBC Auto 0 /100 WBC 09/11/2013 1:12 AM [facility] Blood BLOOD SPECIMEN / Unknown 09/11/2013 1:04 AM [facility] 09/11/2013 1:07 AM [facility] Graeme Ahmadi MD LAB - HEMATOLO GY ORDERABLES [facility] [address] [id number] * EKG 12-LEAD (09/11/2013 12:18 AM [facility]) Ventricular Rate 86 BPM [facility] Atrial Rate 86 BPM [facility] P-R Interval 136 ms [facility] QRS Duration ms 88 ms [facility] Q-T Interval ms 354 ms [facility]USE QTC Calculation (Bezet) 423 ms [facility] Calculated P Marion 15 degrees [facility]USE Calculated R Marion 39 degrees [facility] Calculated T [place] 12 degrees [facility] Interpretation EKG Normal sinus rhythm Normal ECG No previous ECGs available Confirmed by MD BRITTANI, ALONDRA Pearce ([id number]) on 09/11/2013 12:04:37 PM [facility] 09/11/2013 12:1 8 AM GENERAL OFFICE CLERK 09/11/2013 12:04 PM GENERAL OFFICE CLERK Narrative [facility] - 09/11/2013 12:04 PM GENERAL OFFICE CLERK Procedure Note Document, Scanned - 09/11/2013 7:42 AM CST Transcriptions Document, Scanned - 09/11/2013 12:05 PM CST Graeme Ahmadi MD ECG ORDERABLES [facility] * INFLUENZA A+B ANTIGEN RAPID (09/11/2013 12:16 AM GENERAL OFFICE CLERK) Influenza A Antigen Negative Negative 09/11/2013 12:44 AM GENERAL OFFICE CLERK [facility] Influenza B Antigen Negative Negative 09/11/2013 12:44 AM GENERAL OFFICE CLERK [facility] Microbiology NASOPHARYNGEAL SWAB / Unknown 09/11/2013 12:16 AM GENERAL OFFICE CLERK 09/11/2013 12:26 AM GENERAL OFFICE CLERK Narrative [facility] - 09/11/2013 12:44 AM GENERAL OFFICE CLERK ? The sensitivity of rapid tests for [...] Ahmadi MD LAB - MICROBIO LOGY ORDERABLES [facility] [address] [id number] * (ABNORMAL) URINALYSIS ROUTINE W/REFLEX TO CULTURE (09/11/2013 12:16 AM GENERAL OFFICE CLERK) Color UA Yellow Straw, Yellow, Dark Yellow 09/11/2013 12:48 AM [facility] Clarity UA Clear 09/11/2013 12:48 AM [facility] Specific [place] UA 1.019 1.005 - 1.030 09/11/2013 12:48 AM [facility] pH UA 6.0 5.0 - 8.0 pH 09/11/2013 12:48 AM [facility] Protein UA 1+(A) Negative 09/11/2013 12:48 AM [facility] Blood UA Negative Negative 09/11/2013 12:48 AM [facility] Leukocyte UA Negative Negative 09/11/2013 12:48 AM [facility] Nitrite UA Negative Negative 09/11/2013 12:48 AM [facility] Glucose UA Trace(A) Negative 09/11/2013 12:48 AM [facility] Ketone UA Negative Negative 09/11/2013 12:48 AM [facility] Bilirubin UA Negative Negative 09/11/2013 12:48 AM [facility] Urobilinogen UA 0.2 0.1 - 1.0 EU/dL 09/11/2013 12:48 AM [facility] WBC UA Auto 0-2 0-2, 2-5 #/hpf 09/11/2013 12:48 AM [facility] RBC UA Auto 2-5 0-2, 2-5 #/hpf 09/11/2013 12:48 AM [facility] Epithelial Cell UA Auto 0-2 0-2, 2-5 #/hpf 09/11/2013 12:48 AM [facility] Hyaline Casts UA Auto 0-2 0 - 2 #/lpf 09/11/2013 12:48 AM [facility] Reflex Status Culture not indicated 09/11/2013 12:48 AM [facility] Urine URINE SPECIMEN OBTAINED BY CLEAN CATCH PROCEDURE / Unknown 09/11/2013 12:16 AM [facility] 09/11/2013 12:26 AM [facility] Graeme Ahmadi MD LAB - URINALYS IS ORDERABLES [facility] [address] [place] [address] * (ABNORMAL) COMPREHENSIVE METABOLIC PANEL (09/11/2013 12:04 AM [facility]) Glucose 76 74 - 106 mg/dL 09/11/2013 12:27 AM [facility] Sodium 138 136 - 145 mmol/L 09/11/2013 12:27 AM [facility] Potassium 3.9 3.5 - 5.1 mmol/L 09/11/2013 12:27 AM [facility] Chloride 103 98 - 107 mmol/L 09/11/2013 12:27 AM [facility] CO2 28 22 - 31 mmol/L 09/11/2013 12:27 AM [facility] Calcium 9.3 8.5 - 10.1 mg/dL 09/11/2013 12:27 AM [facility] Anion Gap 7 5 - 15 mmol/L 09/11/2013 12:27 AM [facility] BUN 11 7 - 21 mg/dL 09/11/2013 12:27 AM [facility] Creatinine 0.53 0.50 - 1.30 mg/dL 09/11/2013 12:27 AM [facility] eGFR by MDRD >60 >60 mL/min/1.7 3m2 09/11/2013 12:27 AM [facility] eGFR by MDRD >60 >60 mL/min/1.7 3m2 09/11/2013 12:27 AM [facility] Alkaline Phosphatase 85 38 - 126 U/L 09/11/2013 12:27 AM [facility] ALT 128(H) 12 - 78 U/L 09/11/2013 12:27 AM [facility] AST 100(H) 5 - 40 U/L 09/11/2013 12:27 AM [facility] Protein Total 8.3(H) 6.4 - 8.2 gm/dL 09/11/2013 12:27 AM [facility] Albumin 3.9 3.4 - 5.0 gm/dL 09/11/2013 12:27 AM GENERAL OFFICE CLERK [facility] Bilirubin Total 1.1(H) 0.2 - 1.0 mg/dL 09/11/2013 12:27 AM GENERAL OFFICE CLERK [facility] Blood BLOOD SPECIMEN / Unknown 09/11/2013 12:04 AM GENERAL OFFICE CLERK 09/11/2013 12:09 AM GENERAL OFFICE CLERK Narrative [facility] - 09/11/2013 12:27 AM GENERAL OFFICE CLERK Slight hemolysis Graeme Ahmadi MD LAB - CHEMISTR Y ORDERABLES [facility] [address] [address] * LIPASE BLOOD (09/11/2013 12:04 AM GENERAL OFFICE CLERK) Lipase 280 73 - 393 U/L 09/11/2013 1:36 AM GENERAL OFFICE CLERK [facility] Blood BLOOD SPECIMEN / Unknown Venipuncture / Unknown 09/11/2013 12:04 AM GENERAL OFFICE CLERK 09/11/2013 1:28 AM GENERAL OFFICE CLERK Graeme Ahmadi MD LAB - CHEMISTR Y ORDERABLES Performing Organization Address City/[facility]/ZIP Co de Phone Number [facility] [address] [address] documented in this encounter Visit Diagnoses Diagnosis Panic attack- Primary Panic disorder without agoraphobia Abdominal pain, acute Abdominal pain, unspecified site Diverticulitis of colon (without mention of hemorrhage)(562.11) Diverticulitis of colon (without mention of hemorrhage) Diverticulitis of colon (without mention of hemorrhage)(562.11) Diverticulitis of colon (without mention of hemorrhage) documented in this encounter Active and Recently Administered Medications Care Teams Corporate Accounting Manager Relationship Specialty Start Date End Date None, P[place] [address] PCP - General Nurse Practitioner 02/02/13 documented as of this encounter
--- OUTSIDE RECORDS SUMMARY | 2024-09-10 03:45 | XMS_ITS | Encounter Summary ---
Author Organization [facility] Address [address] [place] [address] Care Team Providers Care Dredgemaster Name Role Phone Alcon Munoz MD Primary Care Provider [phone] Reason for Visit * Reason Onset Date Comments Question 07/14/2012 Encounter Details Date Type Department Care Team (Late st Contact Info) Description 07/14/2012 Telephone [facility] - Family Medicine [address] [place] [address] [phone] [place] [id number] [place] [address] Question Social History Tobacco Use [...] Telephone Encounter - Alcon Munoz MD - 07/14/2012 12:38 PM CDT Left message on VM to give the medication time to work for his pleurisy. Otherwise if he has further questions or issues that are non-urgent, they will be handled tomorrow. * Telephone Encounter - Tara Soler - 07/14/2012 11:43 AM CDT T/c from [facility]. Pt would like to speak to you regarding his pleurisy. Pt's girlfriend just picked up the samples to today. I tried to get the pt to come into the office for an appointment but patient denied. * Telephone Encounter - Tara Soler - 07/14/2012 9:16 AM CDT T/c from [facility]. Please call. documented in this encounter Plan of Treatment Not on file documented as of this encounter Visit Diagnoses Not on filedocumented in this encounter Care Teams Dredgemaster Relationship Specialty Start Date End Date Alcon Munoz MD PCP - General Family Medicine 07/05/12 02/01/13 documented as of this encounter
--- OUTSIDE RECORDS SUMMARY | 2024-09-10 03:45 | XMS_ITS | Encounter Summary ---
Author Organization [facility] Health Address [address] [facility] [place] [address] Care Team Providers Care Clinic Nurse Name Role Phone Unavailable Primary Care Provider Unavailabl e Reason for Visit * Reason Comments Establish Care dm Encounter Details Date Type Department Care Team (Late st Contact Info) Description 08/01/2019 3:40 PM SAP SECURITY ARCHITECT Office Visit [facility] General Internal Medicine [address] [address] [place] [address] Radha Palafox, ALL PURPOSE CLERK-VETERINARY SURGEON [address] OF [facility] [place] [id number] Type 2 diabetes mellitus without complication, without long-term current use of insulin (HCC) (Primary Dx); Sleep apnea, unspecified type; Hyperlipidemia, unspecified hyperlipidemia type; Essential hypertension; Depression, unspecified depression type; Panic attacks; Obesity with serious comorbidity, unspecified classification, unspecified obesity type; Need for hepatitis C screening test Social History Tobacco Use Types Packs/Day Years [...] Sign Reading Time Taken Comments Blood Pressure 130/86 08/01/2019 3:30 PM SAP SECURITY ARCHITECT Pulse 87 08/01/2019 3:30 PM SAP SECURITY ARCHITECT Temperature 37 ??C (98.6 ??F) 08/01/2019 3:30 PM SAP SECURITY ARCHITECT Respiratory Rate 18 08/01/2019 3:30 PM SAP SECURITY ARCHITECT Oxygen Saturation 95% 08/01/2019 3:30 PM SAP SECURITY ARCHITECT Inhaled Oxygen Concentration - - Weight 134.7 kg (297 lb) 08/01/2019 3:30 PM SAP SECURITY ARCHITECT Height 188 cm (6' 2 ) 08/01/2019 3:30 PM SAP SECURITY ARCHITECT Body Mass Index 38.13 08/01/2019 3:30 PM SAP SECURITY ARCHITECT documented in this encounter Patient Instructions * Patient Instructions* Rivera Schuler - 08/01/2019 3:40 PM SAP SECURITY ARCHITECT How to Contact Us Between Office Visits [...] to be seen. Please call us at [phone], option 1 thenoption 1 in the morning you would like to be seen. For scheduling routine appointments, requesting refills or leaving a message for your doctor, the office phone is [phone]. You will be given options to get to the assistance you need. Phone lines are open from 8:00 am to4:30 pm Wednesday through Wednesday. All prescription refills must be requested during regular office phone hours. Our fax number is [phone]. After hours urgent calls that cannot wait untill phone lines are open on the next business day are given to the General Internal Medicine physician taxonomy teacher. Please call [phone]. Identify yourself as a patient in our practice and give the header setup operator your doctor's name. The header setup operator will contact the physician taxonomy teacher. You can generally expect a return call within 30 minutes. On weekends, physicians are seeing hospitalized patients and there maybe a longer wait. Visit our website at [email or web address] for information about our practice and an interactive health encyclopedia. Our clinic's missed appointment policy is: - Patients with 3 consecutively missed appointments OR 3 missed appointments in a 12 month period will no longer be seen by General Internal Medicine. They will be asked to seek Primary Care outside of [facility]. - A missed appointment is defined as: * An appointment cancelled less than 24 hours in advance *Arriving to a scheduled appointment too late to be seen (Patients who arrive to clinic later than their scheduled appointment time may not be seen) * Not showing up for an appointment SECURITY ARCHITECT documented in this encounter Progress Notes * Radha Palafox, ALL PURPOSE CLERK-VETERINARY SURGEON - 07/31/2019 3:28 PM CST HPI: Carlos Mcgee is a 49 year old male is here for first time to see me and to establish with PCP. Last seen by a PCP in [place] in February. He was unhappy with her. Multiple medical problems and complaints today. CC: Feel foggy and confused Diverticulitis Diabetes out of control Panic attacks/depression Patient Active Problem List: Chest pain--intermittent with panic attacks. Panic attack--sees psychiatrist ( Dr JELANI PICKENS--[facility]) Depression PTSD Headache--chronic Abdominal pain, acute Colitis--increased in abdominal pain Diverticulitis of colon Diabetes--DX about 4 yr ago. He is currently not taking any medication. His last HgbA1c was 6.6 in February. Claims his BS now run in 100-300 range. Higher BS are 2-3 hr after a meal. Claims he lost 40 lbs over past 3 months. Claims he is allergic to Metformin (chest pains_ Tradjenta gave him panic attacks. Past History and Surgical History Reviewed under History tab -- Contrast-Iodinated Agents For Ct/Other -- Lidocaine -- Rash and Swelling -- Paxil [Paroxetine] -- Percocet [Oxycodone-Acetaminophen] -- Palpitations and Other -- Pt reports that he breaks out into a sweat -- Sulfa Drugs -- Bactrim Ds -- Rash -- Levaquin -- Hallucinations Current Outpatient Medications: albuterol HFA (PROVENTIL;VENTOLIN;PROAIR) 108 (90 Base) MCG/ACT inhaler INL 1 TO 2 PFS PO Q 4 H PRFSOB Disp: Rfl: 0 ALPRAZolam (XANAX) 2 MG tablet Take 1 Tab by mouth 2 times daily as needed for Anxiety. Disp: 40 Tab Rfl: 0 atenolol (TENORMIN) 100 MG tablet 1 daily Disp: Rfl: 0 Disp: Rfl: fluticasone propionate (FLONASE) 50 MCG/ACT nasal spray [place] 2 Sprays into each nostril once dailyDisp: Rfl: hyoscyamine 0.125 MG tablet TK 1 T PO TID PRF ABD CRAMPS Disp: Rfl: 0 LORazepam (ATIVAN) 2 MG tablet Take 1 Tab by mouth every 8 hours as needed for Anxiety Disp: 6 Tab Rfl: 0 losartan (COZAAR) 50 MG tablet TK 1 T PO QD Disp: Rfl: 6 methocarbamol (ROBAXIN) 750 MG tablet Take 1 Tab by mouth every 6 hours Disp: 20 Tab Rfl: 0 omeprazole (PRILOSEC) 40 MG capsule Take 1 Cap by mouth daily before breakfast. Disp: 30 Cap Rfl: 0 sucralfate (CARAFATE) 1 GM tablet TK 1 T QID Disp: Rfl: 0 No current facility-administered medications for this visit. Review of Systems Constitutional: Positive for malaise/fatigue. HENT: Negative. Chronic sinus sx. Thinks he has sinus iinfection Claims multiple ear infections. Eyes: Positive for blurred vision. Left eye decreased vision Respiratory: Positive for shortness of breath. Cardiovascular: Positive for chest pain. With Gastrointestinal: Positive for constipation. Left sided abdominal pain. Same as when I get diverticulitis Last colonoscopy--2018 at [facility] Genitourinary: Negative. Musculoskeletal: Positive for myalgias. Skin: Negative. Neurological: Positive for dizziness, sensory change and headaches. Psychiatric/Behavioral: Positive for depression. The patient is nervous/anxious and has insomnia. Family History Problem Relation Age of Onset [...] resource strain: Not on file ??? Food insecurity: Worry: Not on file Inability: Not on file ??? Transportation needs: Medical: Not on file Non-medical: Not on file Tobacco Use ??? Smoking status: Former Smoker ??? Smokeless tobacco: Never Used Substance and Sexual Activity ??? Alcohol use: No ??? Drug use: No ??? Sexual activity: Not Currently Lifestyle ??? Physical activity: Days per week: Not on file Minutes per session: Not on file ??? Stress: Not on file Relationships ??? Social connections: Talks on phone: Not on file Gets together: Not on file Attends baptism service: Not on file Active member of club or organization: Not on file Attends meetings of clubs or organizations: Not on file Relationship status: Not on file ??? Intimate partner violence: Fear of current or ex partner: Not on file Emotionally abused: Not on file Physically abused: Not on file Forced sexual activity: Not on file Other Topics Concern ??? Not on file Social History Narrative Lives alone OBJECTIVE: BP 130/86 Pulse 87 Temp 98.6 ??F (37 ??C) (Oral) Resp 18 Ht 6' 2 (1.88 m) Wt 297 lb (134.7 kg) SpO2 95% BMI 38.13 kg/m2 130/78 recheck He appears distressed and anxious. Jumps from one complaint to another. Ear--canals clear and TM's intact Nose--mucosa is erythematous Mouth--Mallampati score 4. (Told to have sleep studies multiple times in past) Neck--no thyroid enlargement or nodes palpated. Lungs--clear A&P Cor--S1 S2 RRR no murmurs noted. Abd--obese, Left sided tenderness--mid to lower left side, no masses or organomegaly, + BS. Ext--no edema. Foot exam below. HgbA1c 7.5 Recent Labs Component Name 07/29/15212510/09/13 1444 09/11/13 0004 02/02/13 0418 SODIUM 138 - 138 142 POTASSIUM 3.3* - 3.9 3.5 CHLORIDE 104 - 103 102 CO2 32* 23 28 31 BUN 10 8 11 8 CREATININE 0.98 0.9 0.53 0.76 GLUCOSE 113* - 76 108* CALCIUM 9.2 10.1 9.3 9.4 ALT 73 116* 128* 96* ALKPHOS 88 84 85 88 AST 40 113* 100* 67* TBIL 1.3* - 1.1* 1.0 TPROT 8.2 - 8.3* 7.7 EGFR >60 > 60 >60 >60 EGFRAFR >60 - >60 >60 Recent Labs Component Name 07/29/15212510/09/13 1444 09/11/13 0104 02/02/13 0328 12/05/09 1740 WBC 7.3 6.4 6.2 6.1 - 6.1 RBC 6.10* 5.60 5.84* 5.68* - 5.60 HGB 12.9 14.3 14.6 15.0 - 14.6 HCT 40.9 42.6 42.7 42.2 - 42.4 MCV 67.0* 76.1* 73.1* 74.3* - 75.7* MCHC 31.5 33.6 34.2 35.5 - 34.4 PLTCOUNT 181 - 149* 182 - 177 NEUTPCT 63.1 63.4 56.1 59 - - LYMPHPCT 27.0 - 32.6 28 - 22.7 MONOCYTPCT - - - - - 5.7 EOSINPCT - - - - - 1.0 BASOPHILPCT 0.4 - 0.3 1 - 0.5 GRANSIMMPCT 0.1 - 0.5 0.3 - - NEUTABS 4.63 4.1 3.47 3.57 - - LYMPHABS 1.98 - 2.02 1.68 - 1.38 MONOCYTABS - - - - - 0.35 EOSINABS - - - - - 0.06 BASOABS 0.03 - 0.02 0.03 - 0.03 - = values in this interval not displayed. ASSESSMENT/PLAN Type 2 diabetes mellitus without complication, without long-term current use of insulin - HgbA1c is under reasonable control without medication He feels his BS are too high and too labile and he feels he needs meds, but he reports side effectsto Most meds or won't take them due to what he has heard/ Glimepiride 1 mg daily started (but to wait till after he finishes his Cipro due to potential interaction) Loud Snoring and Mallampati score 4--suspect Sleep apnea- Plan: IP CONSULT TO SLEEP LAB Hyperlipidemia--claims unable to take statins due to chest pains? Takes Fish oil. Essential hypertension--continue Atenolol 100 mg daily for now. Depression/anxiety/Panic attacks/PTSD--followed by psychiatrist in [facility]--only on Alprazolam. Diverticulitis--increasing left sided abdominal pain that he identifies as what he has with acute diverticulitis. Cipro 500 mg BID and Metronidazole 500 mg TID for 10 days. Will need repeat colonoscopy in future and possibly GI referral. Claims colonoscopy at [facility] 1 yr ago and told to repeat in 1 yr. Obesity with serious comorbidity, unspecified classification, unspecified obesity type --claims he lost 40 lbs dieting. Encouraged him to continue dieting. Need for hepatitis C screening test - Plan: HEPATITIS C AB W RFLX VERIFICATION Multiple medication allergies or side effects reported. RV 4-6 weeks prn sooner. Unsure what immunizations he has had--check on next visit. Spent > 1 hour with him discussing his multiple problems and concerns and counseling on diet, medications, procedures and labs needed. Will also need eye exam in future--last exam 1-2 yr ago. Radha Palafox ANP Diabetic Foot Exam left and right foot/feet examined with shoes and socks removed. Visual inspection was normal. Pre-callous bottom of 1st metatarsal joints. Sensory exam with monofilament was normal. Dorsal pedal and posterior tibial pulses were abnormal 1 +. SECURITY ARCHITECT documented in this encounter Plan of Treatment Not on file documented as of this encounter Procedures Procedure Name Priority Date/Time Associated Diagnosis Comments HEMOGLOBIN A1C - POINT OF CARE (AMB) [facility] Routine 08/01/2019 Type 2 diabetes mellitus without complication, without long-term current use of insulin (HCC) documented in this encounter Results * (ABNORMAL) COMPREHENSIVE METABOLIC PANEL (10/20/2019 2:41 PM SAP SECURITY ARCHITECT) BUN 11 7 - 26 mg/dL 10/20/2019 3:33 PM [facility] Creatinine 0.9 0.6 - 1.2 mg/dL 10/20/2019 3:33 PM [facility] Sodium 142 136 - 145 mmol/L 10/20/2019 3:33 PM [facility] Potassium 3.3(L) 3.5 - 4.5 mmol/L 10/20/2019 3:33 PM [facility] Chloride 104 98 - 107 mmol/L 10/20/2019 3:33 PM [facility] CO2 25 22 - 29 mmol/L 10/20/2019 3:33 PM [facility] Glucose 96 70 - 115 mg/dL 10/20/2019 3:33 PM SAP SECURITY ARCHITECT [facility] Calcium 9.5 8.4 - 10.2 mg/dL 10/20/2019 3:33 PM [facility] Protein Total 8.2 6.0 - 8.3 g/dL 10/20/2019 3:33 PM [facility] Albumin 4.2 3.4 - 5.0 g/dL 10/20/2019 3:33 PM [facility] Bilirubin Total 1.7(H) 0.2 - 1.2 mg/dL 10/20/2019 3:33 PM [facility] Alkaline Phosphatase 75 40 - 150 Units/L 10/20/2019 3:33 PM [facility] ALT 60(H) 0 - 55 Units/L 10/20/2019 3:33 PM [facility] AST 63(H) 5 - 34 Units/L 10/20/2019 3:33 PM [facility] Anion Gap 16 8 - 18 10/20/2019 3:33 PM [facility] BUN/Creatinine Ratio 12 7 - 23 10/20/2019 3:33 PM [facility] Osmolality Calculated 293 270 - 300 mOsm/kg 10/20/2019 3:33 PM [facility] Albumin/Globulin Ratio 1.1 1.1 - 2.3 10/20/2019 3:33 PM [facility] eGFR >60 >60 mL/min/1.7 3 m2 10/20/2019 3:33 PM [facility] Blood BLOOD SPECIMEN / Unknown Lab Venipuncture / Unknown 10/20/2019 2:41 PM SAP SECURITY ARCHITECT 10/20/2019 3:01 PM SAP SECURITY ARCHITECT Radha Palafox ALL PURPOSE CLERK-VETERINARY SURGEON LAB - CHEMI STRY ORDERABLES [facility] [address] [place] [address] * TSH (10/20/2019 2:41 PM SAP SECURITY ARCHITECT) TSH 1.644 0.350 - 4.940 uIU/mL 10/20/2019 3:53 PM [facility] Blood BLOOD SPECIMEN / Unknown Lab Venipuncture / Unknown 10/20/2019 2:41 PM SAP SECURITY ARCHITECT 10/20/2019 3:01 PM SAP SECURITY ARCHITECT Radha Palafox ALL PURPOSE CLERK-VETERINARY SURGEON LAB [place] [address], [facility] [phone] * URINALYSIS REFLEX TO MICROSCOPIC NO CULTURE (10/20/2019 2:41 PM SAP SECURITY ARCHITECT) Color UA Yellow Straw, Yellow, Colorless 10/20/2019 3:28 PM [facility] Clarity UA Clear Clear, Slt Cloudy 10/20/2019 3:28 PM [facility] Specific Bivalve UA 1.015 1.005 - 1.030 10/20/2019 3:28 PM [facility] pH UA 6.0 5.0 - 8.0 pH 10/20/2019 3:28 PM [facility] Protein UA Negative Negative mg/dL 10/20/2019 3:28 PM [facility] Glucose UA Negative Negative mg/dL 10/20/2019 3:28 PM [facility] Ketone UA Negative Negative mg/dL 10/20/2019 3:28 PM [facility] Bilirubin UA Negative Negative mg/dL 10/20/2019 3:28 PM [facility] Blood UA Negative Negative 10/20/2019 3:28 PM [facility] Nitrite UA Negative Negative 10/20/2019 3:28 PM [facility] Leukocyte Esterase Negative Negative 10/20/2019 3:28 PM [facility] Urobilinogen UA Negative Negative mg/dL 10/20/2019 3:28 PM [facility] RBC UA 0-2 None Seen, 0-2, 3-5 /HPF 10/20/2019 3:28 PM [facility] WBC UA 0-5 None Seen, 0-5 /HPF 10/20/2019 3:28 PM [facility] Squamous Epithelial Cells UA None Seen None Seen, 0-2 /HPF 10/20/2019 3:28 PM [facility] Mucus UA 1+ None, 1+ /LPF 10/20/2019 3:28 PM [facility] Urine URINE SPECIMEN OBTAINED BY CLEAN CATCH PROCEDURE / Unknown Collection / Unknown 10/20/2019 2:41 PM SAP SECURITY ARCHITECT 10/20/2019 3:01 PM SAP SECURITY ARCHITECT Narrative [facility] - 10/20/2019 3:28 PM SAP SECURITY ARCHITECT Radha Palafox ALL PURPOSE CLERK-[facility] LAB - URINA LYSIS ORDERABLES Performing Organization Address [facility] Co de Phone Number [address] [phone] * (ABNORMAL) MICROALB/CREAT RATIO URINE RANDOM PANEL (10/20/2019 2:41 PM SAP SECURITY ARCHITECT) Albumin Random Urine 65.0 Not Established mcg/mL 10/20/2019 4:57 PM [facility] Creatinine Urine 143 Not Established mg/dL 10/20/2019 4:57 PM [facility] Comment: Result obtained by dilution. Urine Albumin/Creati nine Ratio 45(H) <30 mg/g 10/20/2019 4:57 PM [facility] Urine URINE SPECIMEN OBTAINED BY CLEAN CATCH PROCEDURE / Unknown Collection / Unknown 10/20/2019 2:41 PM SAP SECURITY ARCHITECT 10/20/2019 3:01 PM SAP SECURITY ARCHITECT Radha Palafox ALL [facility] - URINE CHEMISTRY ORDERABLES Performing Organization Address [facility] Co de Phone Number [address] [phone] * (ABNORMAL) LIPID PROFILE (10/20/2019 2:41 PM SAP SECURITY ARCHITECT) Cholesterol Total 173 <200 mg/dL 10/20/2019 3:33 PM [facility] HDL 21(L) >40 mg/dL 10/20/2019 3:33 PM [facility] Comment: ATP III Classification of HDL Cholesterol: ? <40 mg/dL: ??Considered a major risk factor. ? >60 mg/dL: ??Considered a negative risk factor. ? LDL Calculated 104(H) <100 mg/dL 10/20/2019 3:33 PM [facility] Comment: ATP III Classification of LDL Cholesterol: ?<100 mg/dL: ??Optimal ? 100 - 129 mg/dL: ??Near Optimal/Above Optimal ? 130 - 159 mg/dL: ??Borderline High ? 160 - 189 mg/dL: ??High ?>190 mg/dL: ??Very High ? Triglycerides 240(H) <150 mg/dL 10/20/2019 3:33 PM SAP SECURITY ARCHITECT [facility] Comment: ATP III Classification of Triglycerides: ?<150 mg/dL: ??Normal ? 150 - 199 mg/dL: ??Borderline High ? 200 - 400 mg/dL: ??High ?>500 mg/dL: ??Very High Blood BLOOD SPECIMEN / Unknown Lab Venipuncture / Unknown 10/20/2019 2:41 PM SAP SECURITY ARCHITECT 10/20/2019 3:01 PM SAP SECURITY ARCHITECT Radha Palafox ALL PURPOSE CLERK-VETERINARY SURGEON LAB - CHEMI STRY ORDERABLES Performing Organization Address City/State/[facility] Co de Phone Number [address] [phone] * HEPATITIS C AB W RFLX VERIFICATION (10/20/2019 2:41 PM SAP SECURITY ARCHITECT) Hepatitis C Antibody <0.1 0.0 - 0.9 s/co ratio 10/21/2019 8:18 AM SAP SECURITY ARCHITECT [facility] Blood BLOOD SPECIMEN / Unknown Lab Venipuncture / Unknown 10/20/2019 2:41 PM SAP SECURITY ARCHITECT 10/20/2019 3:01 PM SAP SECURITY ARCHITECT Narrative [facility] - 10/21/2019 8:18 AM SAP SECURITY ARCHITECT Performed at: ??01 - [facility] [address], [place], [place] ??[id number] Junior Analyst: Carlos Woods PhD, Phone: ??[phone] Radha Palafox APRN-VETERINARY SURGEON LAB - CHEMI STRY ORDERABLES [facility] [address] [place] [address], [facility] * (ABNORMAL) CBC WITH DIFFERENTIAL (10/20/2019 2:41 PM [facility]) WBC 7.1 3.5 - 10.5 10? 3 /uL 10/20/2019 3:06 PM [facility] RBC 5.94(H) 4.30 - 5.70 10? 6 /uL 10/20/2019 3:06 PM [facility] Hemoglobin 14.4 13.5 - 17.5 g/dL 10/20/2019 3:06 PM [facility] Hematocrit 44.7 39.0 - 50.0 % 10/20/2019 3:06 PM [facility] MCV 75.3(L) 81.0 - 97.0 fL 10/20/2019 3:06 PM [facility] MCH 24.2(L) 28.0 - 34.0 pg 10/20/2019 3:06 PM [facility] MCHC 32.2 32.0 - 36.0 g/dL 10/20/2019 3:06 PM [facility] Platelet Count 196 150 - 400 10? 3 /uL 10/20/2019 3:06 PM [facility] RDW-SD 39.6 36.0 - 50.0 fL 10/20/2019 3:06 PM [facility] RDW-CV 14.6 11.2 - 14.8 % 10/20/2019 3:06 PM [facility] MPV 9.4 9.3 - 12.8 fL 10/20/2019 3:06 PM [facility] nRBC Absolute 0.00 0 10? 3 /uL 10/20/2019 3:06 PM [facility] nRBC Auto 0.0 0 /100 WBC 10/20/2019 3:06 PM [facility] Neutrophils % 63.6 35.0 - 70.0 % 10/20/2019 3:06 PM [facility] Lymphocytes % 25.4 19.7 - 55.1 % 10/20/2019 3:06 PM [facility] Monocytes % 7.6 3.0 - 15.0 % 10/20/2019 3:06 PM [facility] Eosinophils % 2.7 0.0 - 6.0 % 10/20/2019 3:06 PM [facility] Basophil % 0.6 0.0 - 1.5 % 10/20/2019 3:06 PM [facility] Neutrophils Absolute 4.5 1.6 - 7.0 10? 3 /uL 10/20/2019 3:06 PM [facility] Lymphocyte Absolute 1.8 0.8 - 2.9 10? 3 /uL 10/20/2019 3:06 PM [facility] Monocytes Absolute 0.54 0.14 - 0.66 10? 3 /uL 10/20/2019 3:06 PM [facility] Eosinophils Absolute 0.19 0.00 - 0.45 10? 3 /uL 10/20/2019 3:06 PM [facility] Basophils Absolute 0.04 0.00 - 0.06 10? 3 /uL 10/20/2019 3:06 PM [facility] Immature Granulocytes % 0.1 0.0 - 1.0 % 10/20/2019 3:06 PM [facility] Blood BLOOD SPECIMEN / Unknown Lab Venipuncture / Unknown 10/20/2019 2:41 PM SAP SECURITY ARCHITECT 10/20/2019 3:01 PM SAP SECURITY ARCHITECT Narrative Authorizing Provider Result Kolby Palafox [facility] - HEMAT OLOGY ORDERABLES Performing Organization Address City/State/[facility] Co de Phone Number [facility] [address] [phone] * HEMOGLOBIN A1C - POINT OF CARE (AMB) [facility] (08/01/2019) Hemoglobin A1c POCT 7.5 BLOOD SPECIMEN / Unknown 08/01/2019 Narrative Authorizing Provider Result Kolby Palafox [facility] - POINT OF CARE ORDERABLES documented in this encounter Visit Diagnoses Diagnosis Type 2 diabetes mellitus without complication, without long-term current use of insulin (HCC)- Primary Sleep apnea, unspecified type Hyperlipidemia, unspecified hyperlipidemia type Essential hypertension Depression, unspecified depression type Panic attacks Panic disorder without agoraphobia Obesity with serious comorbidity, unspecified classification, unspecified obesity type Need for hepatitis C screening test Special screening examination for other specified viral diseases documented in this encounter
--- OUTSIDE RECORDS SUMMARY | 2024-09-10 03:45 | XMS_ITS | Encounter Summary ---
Author Organization [facility] Address [address] [facility] [place] [address] Care Team Providers Care Clinical Radiologist Name Role Phone Alcon Munoz MD Primary Care Provider [phone] Reason for Visit * Reason Onset Date Comments Question 07/07/2012 Encounter Details Date Type Department Care Team (Late st Contact Info) Description 07/07/[address] [facility] - Family Medicine [address] [place], [place] [id number] [place] [address] [place] [address] Question Social History Tobacco Use [...] * Telephone Encounter - Tara Soler - 07/07/2012 1:04 PM CDT Tried call pt. Pt does not have a voicemail box that has been set up yet. * Telephone Encounter - Alcon Munoz MD - 07/07/2012 12:46 PM CDT It is likely the accumulation of mucous over night. As long as his eyes aren't red and is also not getting copious amounts of eye discharge thru the day, just continue to use drops. If he is getting those symptoms, let me know and I'll order antibiotic eye drops and treat as bacterial conjunctivitis. * Telephone Encounter - Tara Soler - 07/07/2012 11:56 AM CDT T/c from Carlos Mcgee. Please call. Pt is concerned about his eyes. Pt states states when he wakes up he has yellow thick pus coming out if his eyes. I told the patient to continue to use the drops that Dr. Munoz put him on and give it a few more days, but patient would like to know where thepus is coming from and why the pus is coming out. Please advise. documented in this encounter Plan of Treatment Not on file documented as of this encounter Visit Diagnoses Not on filedocumented in this encounter Care Teams Clinical Radiologist Relationship Specialty Start Date End Date Alcon Munoz MD PCP - General Family Medicine 07/05/12 02/01/13 documented as of this encounter
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
--- OUTSIDE RECORDS SUMMARY | 2024-09-10 03:45 | XMS_ITS | Encounter Summary ---
Author Organization [facility] Health Address [address] [place] [address] Care Team Providers Care University Librarian Name Role Phone Unavailable Primary Care Provider Unavailabl e Reason for Visit * Reason Onset Date Comments Erroneous encounter-disregard 10/20/2019 Encounter Details Date Type Department Care Team (Late st Contact Info) Description 10/20/2019 Telephone [facility] [address] [facility] [address] [place] [address] Radha Palafox, SALON ASSISTANT-AUTOMATIC WASHER MECHANIC [address] OF [facility] [place] [phone] Erroneous encounter-disregard Social History Tobacco Use Types Packs/Day Years [...] encounter Miscellaneous Notes * Telephone Encounter - Lynne Mendes - 10/20/2019 10:46 AM CST err MA OR THEATRE MANAGER documented in this encounter Plan of Treatment Not on file documented as of this encounter Visit Diagnoses Not on filedocumented in this encounter
--- OUTSIDE RECORDS SUMMARY | 2024-09-10 03:45 | XMS_ITS | Encounter Summary ---
Author Organization [facility] Address [address] [place] [address] Care Team Providers Care Braille Coder Name Role Phone Unknown, Provider Primary Care Provider Unavaila ble Reason for Visit * Reason Comments PANIC ATTACK Pt. states he is hav ing one of his panic attacks. Denies any other symptoms at this time. Encounter Details Date Type Department Care Team (Late st Contact Info) Description 11/03/2009 9:04 PM LIBRARY SALES CONSULTANT - 11/04/2009 12:32 AM LIBRARY SALES CONSULTANT Emergency ER at [place] [id number] [place] [address] Vignesh Franco MD update address Anxiety Disorder (Primary Dx) Discharge Disposition: Home or Self Care Social [...] Sign Reading Time Taken Comments Blood Pressure 154/93 11/03/2009 11:52 PM LIBRARY SALES CONSULTANT Pulse 96 11/03/2009 11:52 PM LIBRARY SALES CONSULTANT Temperature 36.8 ??C (98.3 ??F) 11/03/2009 9:38 PM CS T Respiratory Rate 14 11/03/2009 11:52 PM LIBRARY SALES CONSULTANT Oxygen Saturation 99% 11/03/2009 11:52 PM LIBRARY SALES CONSULTANT Inhaled Oxygen Concentration - - Weight 102.1 kg (225 lb) 11/03/2009 9:38 PM LIBRARY SALES CONSULTANT Height 188 cm (6' 2 ) 11/03/2009 9:38 PM LIBRARY SALES CONSULTANT Body Mass Index 28.89 11/03/2009 9:38 PM LIBRARY SALES CONSULTANT documented in this encounter Discharge Instructions * Discharge Instructions* Vignesh Franco MD - 11/04/2009 12:17 AM LIBRARY SALES CONSULTANT See your doctor or the on-call doctor for further treatment and medications. ARY SALES CONSULTANT * Discharge Instructions* Document, Scanned - 11/03/2009 12:00 AM LIBRARY SALES CONSULTANT documented in this encounter Medications at Time of Discharge Medication Sig Dispensed Refills Start Date End Date LEXAPRO 10 MG tablet Take 10 mg by mouth daily. 01/30/2012 PRILOSEC PO Take by mouth as needed 12/05/2009 XANAX 2 MG tablet Take 2 mg by mouth 3 times daily. Ran out of script 12/05/2009 documented as of this encounter ED Notes * Leslie Xie RN - 11/04/2009 12:29 AM CST Pt refused to sign d/c instructions, walked out stating this is bullshit ARY SALES CONSULTANT * Vignesh Franco MD - 11/04/2009 12:02 AM CST 11/04/2009 12:02 AM HPI Comments: The patient presents with one week of nausea and having a panic attack. The patient says he is out of his Xanax and is between doctors. He says his old doctor retired and it will be a month before he can seen his new doctor. Psych Disorder The history is provided by the patient. This is a chronic problem. The patient was referred by self.The primary symptoms include anxiety and panic attack.Precipitating factors: Out of medication. Associated symptoms include agitated. Review of Systems Constitutional: Negative. Cardiovascular: Positive for chest pain. Respiratory: Is experiencing shortness of breath. Gastrointestinal: Positive for nausea. Psychiatric: Is nervous/anxious. Physical Exam Nursing note and vitals reviewed. Constitutional: He is oriented. Mildly distressed HENT: Head: Normocephalic and atraumatic. Right Ear: Hearing, tympanic membrane, external ear and ear canal normal. Left Ear: Hearing, tympanic membrane, external ear and ear canal normal. Nose: Nose normal. Mouth/Throat: Uvula is midline, oropharynx is clear and moist and mucous membranes are normal. Eyes: Conjunctivae and extraocular motions are normal. Pupils are equal, round, and reactive to light. Neck: Trachea normal, normal range of motion and full passive range of motion without pain. Neck supple. Cardiovascular: Normal rate, regular rhythm and intact distal pulses. Pulmonary/Chest: Effort normal. Musculoskeletal: Normal range of motion. Neurological: He is alert and oriented. GCS score is 15. Skin: Skin is warm, dry and intact. Psychiatric: Memory, affect and judgment normal. His mood appears anxious. EKG Interpretation Lab/SPO2 Interpretation History Past Medical History Diagnosis Date ??? DEPRESSION [...] outpatient prescriptions Medication Sig Dispense Refill ??? LEXAPRO 10 MG tablet Take 10 mg by mouth daily. ??? PRILOSEC PO Take by mouth as needed ??? XANAX 2 MG tablet Take 2 mg by mouth 3 times daily. Ran out of script Progress Notes Confronted the patient that I have seen him before and that refills of a chronic anti-anxiety medication will not be given by me. Will again give the patient the automotive power electronics engineer doctor and advised this is not an appropriate use of the ED. Procedures Medical Decision Making I have reviewed the: Previous Chart, Nursing Notes and Vitals. ED Plan/Course:May see your doctor or the on-call for follow-up. Diagnosis Encounter Diagnosis Name Primary? ANXIETY DISORDER Yes ARY SALES CONSULTANT * Verna Johnston - 11/03/2009 11:51 PM CST Pt. Mentions when being brought back to treatment room that he is feeling nauseous. Has had nausea off and on x 1 week. ARY SALES CONSULTANT * Shala Olivas RN - 11/03/2009 9:42 PM CST Pt states has been out of xanax and has not been taking it. ARY SALES CONSULTANT documented in this encounter Miscellaneous Notes * Miscellaneous Scans - Document, Scanned - 11/03/2009 12:00 AM LIBRARY SALES CONSULTANT documented in this encounter Plan of Treatment Not on file documented as of this encounter Visit Diagnoses Diagnosis Anxiety disorder- Primary Anxiety state, unspecified documented in this encounter Active and Recently Administered Medications Care Teams Braille Coder Relationship Specialty Start Date End Date Unknown, Provider PCP - General 11/03/09 11/22/09 documented as of this encounter
--- OUTSIDE RECORDS SUMMARY | 2024-09-10 03:45 | XMS_ITS | Encounter Summary ---
Author Organization [facility] Address [address] [place] [address] Care Team Providers Care Exhibitions And Collections Manager Name Role Phone Alcon Munoz MD Primary Care Provider Reason for Visit * Reason Onset Date Comments Question 07/20/2012 Encounter Details Date Type Department Care Team (Late st Contact Info) Description 07/20/2012 Telephone [facility] - Family Medicine [address] [place] [address] [place] [address] [place] [address] Question Social History Tobacco Use [...] encounter Miscellaneous Notes * Telephone Encounter - Arely Loya - 07/21/2012 7:34 AM CST Called patient and gave him Dr. Murray answer. TER HELPER * Telephone Encounter - Alcon Munoz MD - 07/20/2012 3:57 PM CST That's fine TER HELPER * Telephone Encounter - Tara Soler - 07/20/2012 3:50 PM CST Carlos Mcgee called this afternoon. Pt would like to know what he should do since he has such anxiety and he cant take 6 pills for a the steroids today. Pt would like to know if he can take 4,3,2,1 instead of 6,5,4,3,2,1. Please advise. TER HELPER documented in this encounter Plan of Treatment Not on file documented as of this encounter Visit Diagnoses Not on filedocumented in this encounter Care Teams Exhibitions And Collections Manager Relationship Specialty Start Date End Date Alcon Munoz MD PCP - General Family Medicine 07/05/12 02/01/13 documented as of this encounter
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
--- OUTSIDE RECORDS SUMMARY | 2024-09-10 03:45 | XMS_ITS | Encounter Summary ---
Author Organization [facility] Health Address [address] [place] [address] Care Team Providers Care Commodity Lead Name Role Phone Unavailable Primary Care Provider Unavailabl e Encounter Details Date Type Department Care Team (Late st Contact Info) Description 09/08/2019 Telephone [facility] [address] [facility] [address] [place] [address] Radha Palafox APRN-CNP [address] OF [facility] [place] [phone] Social History Tobacco Use Types Packs/Day Years [...] Telephone Encounter - Mallory Flores RN - 09/11/2019 12:13 PM CST Patient calling back Advised message from VENTURA Palafox Please tell him that he needs to elevate his legs. I can not do anything for him over the phone. Patient asked why she could call him at least upset that she didn't call him Advisedd he needs to come in a be seen She can't make any determinations over phone He reluctantly let me connect him to scheduling EMS ARCHITECTURE ANALYST * Telephone Encounter - Radha Palafox APRN-CNP - 09/08/2019 1:59 PM SYSTEMS ARCHITECTURE ANALYST Please tell him that he needs to elevate his legs. I can not do anything for him over the phone. MELISA Diaz EMS ARCHITECTURE ANALYST * Telephone Encounter - Mallory Flores RN - 09/08/2019 12:32 PM CST Patient calling again and states that his feet are more swollen. He is elevating legs, Look purplish.Wearing sweat pants and they are leaving a imprint that lasts over an hour Feet, all the way to the knee cap Declined triage and to come in for appt. States he is drinking fluids and urinating. He has never had swelling like this, He would like you to call him CB [phone] EMS ARCHITECTURE ANALYST documented in this encounter Plan of Treatment Not on file documented as of this encounter Visit Diagnoses Not on filedocumented in this encounter
--- OUTSIDE RECORDS SUMMARY | 2024-09-10 03:45 | XMS_ITS | Encounter Summary ---
Author Organization [facility] Health Address [address] [place] [address] Care Team Providers Care Natural Resource Manager Name Role Phone Unavailable Primary Care Provider Unavailabl e Reason for Visit * Reason Onset Date Comments Health Information 09/26/2019 Encounter Details Date Type Department Care Team (Late st Contact Info) Description 09/26/2019 Telephone [facility] [address] [place] [address] Radha Palafox, CASTING SUPERVISOR-KNOWLEDGE MANAGEMENT CONSULTANT [address] [place] [phone] Health Information Social History Tobacco Use Types Packs/Day Years [...] Notes * Telephone Encounter - Venus Powell - 10/02/2019 2:25 PM CST Please see follow up calls ER MACHINE OPERATOR * Telephone Encounter - Eunice Baez - 09/26/2019 12:50 PM CST Pt would just like a call back. [phone] ER MACHINE OPERATOR documented in this encounter Plan of Treatment Not on file documented as of this encounter Visit Diagnoses Not on filedocumented in this encounter
--- OUTSIDE RECORDS SUMMARY | 2024-09-10 03:45 | XMS_ITS | Encounter Summary ---
Author Organization [facility] Address [address] [place] [address] Care Team Providers Care Supervisor Asbestos Removal Name Role Phone Nopcp, Patient Primary Care Provider Unavailabl e Reason for Visit * Reason Comments Anxiety c/o persistent anxie ty. has been having anxiety attacks since age 9. was seen here wednesday for the same and was given a referral to a Dr. New in which he made two appointments. one was cancelled by Dr. Macias and the other DR. Macias did not show up. denies si and hi. Nausea also c/o 1 week of n ausea without vomiting. Encounter Details Date Type Department Care Team (Late st Contact Info) Description 12/05/2009 2:20 PM CDT - 12/05/2009 7:16 PM CDT Emergency ER at [address] [address] Tomasz Silverman MD [address] [place] [id number] Leslie Andrews MD [address] [place] [address] [place] [address] Anxiety; GERD (Gastroesophageal Reflux Disease); Elevated LFT's Discharge Disposition: Home or Self Care Social [...] Sign Reading Time Taken Comments Blood Pressure 135/75 12/05/2009 7:09 PM CDT Pulse 80 12/05/2009 7:09 PM CDT Temperature 36.9 ??C (98.5 ??F) 12/05/2009 3:48 PM CD T Respiratory Rate 22 12/05/2009 7:09 PM CDT Oxygen Saturation 100% 12/05/2009 3:48 PM CDT Inhaled Oxygen Concentration - - Weight 104.3 kg (230 lb) 12/05/2009 2:28 PM CDT Height 188 cm (6' 2 ) 12/05/2009 2:28 PM CDT Body Mass Index 29.53 12/05/2009 2:28 PM CDT documented in this encounter Discharge Instructions * Discharge Instructions* Thea Castro PA - 12/05/2009 7:04 PM CDT Anxiety and Panic Attacks Your [...] Document Re-Released: 09/18/2008 ExitCare?? Patient Information ??2009 Displair. Gastroesophageal Reflux Disease (GERD) Your caregiver has diagnosed your chest discomfort as being from gastroesophageal reflux disease. GERD is caused by a reflux of acid from your stomach up into your esophagus (the tube which brings the food from your mouth to your stomach). Acid in contact with the esophagus causes an inflammation (s oreness) resulting in heartburn or chest pain, and may cause ulcers (small holes in the lining of the esophagus). CAUSES OF THIS ARE: ?? Increased weight pushes on stomach making acid rise. ?? Smoking markedly increases acid production. ?? Alcohol decreases lower esophageal sphincter (valve between stomach and esophagus) pressure, allowing acid from stomach into esophagus. ?? Late evening meals; full stomach increases pressure and acid within. ?? Increase in acid production. ?? Lower esophageal sphincter incompetence (the way we are made). ?? Sometimes, no reason is found. HOME CARE INSTRUCTIONS ?? Change the above factors which you can change. Ask your physician for help if necessary. Weight,smoking or alcohol changes are difficult to effect on your own. Your caregiver can provide guidanceand medical therapy. ?? Put the head of your bed on 4 to 6 inch blocks. ?? Dpum-nok-syuqmcv medications such as Tagamet?? and Pepcid?? AC will decrease acid production. Your caregiver can also prescribe medications for this. Take as directed. ? to 1 teaspoon of an antacid such as Maalox?? or Mylanta??taken every hour while awake, with meals and at bedtime, will neutralize acid. ?? Do NOT take aspirin, ibuprofen (Advil?? or Motrin??), or other nonsteroidal anti-inflammatory drugs. SEEK IMMEDIATE MEDICAL ATTENTION IF: ?? If there is change in location (radiation of pain into arms, neck, jaw, teeth or back), intensity or duration of pain. ?? If there is an onset of nausea (feeling sick to your stomach), vomiting or diaphoresis (sweating). ?? You develop left arm or jaw pain. ?? You develop pain going into your back, or shortness of breath or pass out. ?? You notice vomiting of fluid that is green or yellow in color or looks like coffee grounds or blood. These symptoms (problems) could signal other problems such as heart disease. Document Released: 06/09/2006 Document Re-Released: 10/11/2007 ExitCare?? Patient Information ??2009 Displair. * Discharge Instructions* Document, Scanned - 12/05/2009 12:00 AM CDT documented in this encounter [...] needed for Anxiety. 15 0 11/23/2009 01/30/2012 esomeprazole (NEXIUM) 20 MG capsule Take 1 Cap by mouth daily before breakfast. 30 0 11/30/2009 12/30/2009 esomeprazole (NEXIUM) 20 MG capsule Take 1 Cap by mouth daily before breakfast. 30 0 11/30/2009 12/30/2009 LEXAPRO 10 MG tablet Take 10 mg by mouth daily. 01/30/2012 sucralfate (CARAFATE) 1 GM/10ML suspension Take 10 mL by mouth every 6 hours as needed 420 ml 0 11/23/2009 01/30/2012 documented as of this encounter Procedure Notes * Document, Scanned - 12/05/2009 12:00 AM CDTAssociated Order(s): CARDIAC EKG ORDER * Document, Scanned - 12/05/2009 12:00 AM CDTAssociated Order(s): CARDIAC EKG ORDER documented in this encounter ED Notes * Stephanie Mcnulty RN - 12/05/2009 7:15 PM CDT Pt is concerned about being nauseated instructions provided and pt verbalized understanding. * Vy Bonilla RN - 12/05/2009 5:58 PM CDT Pt has been political cartoonist light x 3 to requesting to see melissa COLLIER has been notified and is waiting for pt labs to come back. * Vy Bonilla RN - 12/05/2009 5:40 PM CDT 2 unsuccessful attempts for lab sticks by said nurse, conor benoit-p sucessfully diann lab from [facility] * Thea Castro PA - 12/05/2009 4:35 PM CDT 12/05/2009 4:35 PM History Chief Complaint Patient presents with ??? Anxiety c/o persistent anxiety. states has been having anxiety attacks since age 9. states was seen here wednesday for the same and was given a referral to a Dr. New in which he made two appointments. onewas cancelled by Dr. Macias and the other DR. Macias did not show up. denies si and hi. ??? Nausea also c/o 1 week of nausea without vomiting. HPI Comments: Pt is a 39 year old male to ED c/o chronic anxiety and panic attacks, as well as, nausea and epigastric pain. Reports hx of anxiety, GERD. diverticulitis. This is patient's 4th visit [facility] ED in just over a month for same comlaint requesting xanax refill. He was just seen here withinthe past week and prior to that at both [facility] and [facility]. Pt States that his PCP retired and he has not gotten established with a new PCP or pyschiatrist. During hx patient talks at length, however, hx is convoluted - difficult to follow. States that he was scheduled to see a pyschiatrist Dr. Nuñez, however, 1st appointment was cancelled verbally by Dr Nuñez over the cell phone. States that Dr. Macias's instruted him to come to office today for appointment. [facility] stated that he did not have an apointment and closed the window at the front end loader driver and would not answer the buzzer when he rang again. Per patient he has called over 50 pyschiatrists over past month and has not been able to get a timely appointment, however, at another point pt stated that he saw a pyschiatrist in [place], [place] in late October, however, the physician wanted him to get records of his past medication hx which patient felt was his repsonsibility and subsequently did not follow up again. Per patient he has had chronic anxiety and panic attacks since childhood. States he has been on xanax for 2-3 years, as well as, lexapro. General Associated symptoms include abdominal pain (epigastric pain). Past Medical History Diagnosis Date ??? DEPRESSION [...] as needed for Anxiety. 10 0 ??? esomeprazole (NEXIUM) 20 MG capsule Take 1 Cap by mouth daily before breakfast. 30 0 ??? alprazolam (XANAX) 2 MG tablet [...] Take 10 mg by mouth daily. ??? esomeprazole (NEXIUM) 20 MG capsule Take 1 Cap by mouth daily before breakfast. 30 0 Review of Systems Constitutional: Negative for fever and chills. HENT: Negative. Cardiovascular: Negative. Respiratory: Negative. Gastrointestinal: Positive for heartburn, nausea and abdominal pain (epigastric pain). Negative forvomiting, diarrhea, constipation, blood in stool and melena. Genitourinary: Negative. Musculoskeletal: Negative. Neurological: Negative. Psychiatric: Anxiety BP 135/75 Pulse 80 Temp 98.5 ??F Resp 22 Wt 230 lb (104.327 kg) Physical Exam Constitutional: He is oriented and well-developed, well-nourished, and in no distress. He appears not diaphoretic. No distress. HENT: Head: Normocephalic and atraumatic. Mouth/Throat: Oropharynx is clear and moist. No oropharyngeal exudate. Eyes: Conjunctivae are normal. Pupils are equal, round, and reactive to light. Neck: Normal range of motion. Neck supple. Cardiovascular: Normal rate, regular rhythm and normal heart sounds. Pulmonary/Chest: Effort normal and breath sounds normal. No respiratory distress. He exhibits no tenderness. Abdominal: Bowel sounds are normal. He exhibits no distension. Soft. No tenderness. Neurological: He is alert and oriented. GCS score is 15. Skin: Skin is warm and dry. No rash noted. He is not diaphoretic. No erythema. Psychiatric: Mood, memory, affect and judgment normal. EKG Interpretation Clinical Impression: non-specific EKG. Rhythm: normal sinus. Rate: normal. Ectopy: none. Blocks: none. [place]: normal. ECG Rhythm Interpretation Lab Interpretation WBC:normal,Hemoglobin:normal,Hematocrit:normal, and Platelets:normal Na+:normal,Cl-:normal,BUN:normal,Glucose:normal,K+:normal,HCO3- :normal,Creatinine:normal and Mg: CPK:,CK-MB:,Myoglobin:Myoglobin #2 :Troponin:normal and Troponin #2: Amylase:,Lipase:normal, and Liver Function: Oxygen Saturation Interpretation The oxygen saturation level is: 100%. The patient was on Room Air for the saturation measurement. Measurement frequency: Spot Check. Oxygen saturation interpretation is Normal. Medical Decision Making ED Plan/Course: Pt with convoluted, inconsisent hx - difficulty to follow, however, wanting to talkat length - more patient talked more confusing his story became. After initial exam pt continued toring nurse to room on multiple occasions requesting to speak with me even after being instructed that he would be seen again once his tests results were completed. Per patient he is currently not under the care of any physicians including for his GI complaints, however, per ED record from 11/23 ED physician documented that patient had reported that he had an appointment with his GI physician in 2 weeks at [place]. When questioned pt denied have an upcoming appointment at [place]. He states that he could get the drugs off the street, however, he is just trying to do the right thing and does not want to look like a drug seeker . Pt also asking for PCP, GI, and pysch referral. Call placed to [facility] - patient has been receiving xanax scripts from [facility] [facility] since 2007 with dose increasing over time to 2mg TID. The majority of the scripts were written by 2 physicians. Pt instructed that he would receive a limited supply of xanax for the last time and any adidtional scripts for controlled substances for chronic condition need to be filled by a PCP or pyschiatrist. Diagnosis Encounter Diagnoses Name Primary? ANXIETY ??? GERD (Gastroesophageal Reflux Disease) ??? Elevated LFT's * Vy Bonilla RN - 12/05/2009 4:11 PM CDT Pt amb to room 31 with c/o anxiety and nausea. States he was here in the ED for same. Pt states he had an appt with phychatrist today, pt states when he got there they told him he was not there and he is not in office today, so pt came back to the ED for more anxiety meds and his GERD/nausea * Annamaria Ca - 12/05/2009 3:49 PM CDT Pt c/o cp, triage nurse notified, ekg ordered. documented in this encounter Miscellaneous Notes * Miscellaneous Scans - Document, Scanned - 12/05/2009 12:00 AM CDT documented in this encounter Plan of Treatment Not on file documented as of this encounter Procedures Procedure Name Priority Date/Time Associated Diagnosis Comments CARDIAC EKG ORDER 12/07/2009 10: 14 AM CDT CARDIAC EKG ORDER 12/06/2009 1:3 4 PM CDT TROPONIN I STAT 12/05/2009 5:40 PM CDT CBC W AUTO DIFFERENTIAL STAT 12/05/2009 5:40 PM CDT COMPREHENSIVE METABOLIC PANEL STAT 12/05/2009 5:40 PM CDT LIPASE BLOOD STAT 12/05/2009 5:40 PM CDT documented in this encounter Results * CARDIAC EKG ORDER (12/07/2009 10:14 AM CDT) Narrative 12/07/2009 10:14 AM CDT Ordered by an unspecified provider. Transcriptions Document, Scanned - 12/05/2009 12:00 AM CDT Scanned Document CARDIAC SERVICES ORD ERABLES * CARDIAC EKG ORDER (12/06/2009 1:34 PM CDT) Narrative 12/06/2009 1:34 PM CDT Ordered by an unspecified provider. Transcriptions Document, Scanned - 12/05/2009 12:00 AM CDT Scanned Document CARDIAC SERVICES ORD ERABLES * TROPONIN I (12/05/2009 5:40 PM CDT) [facility] Troponin I <0.10 SEE BELOW ng/ml [facility] Comment: Normal ? <0.10 [place] Zone ??0.10-0.99 Positive ?? >=1.00 SERUM OR PLASMA SPECIMEN / Unknown 12/05/2009 5:40 PM CDT 12/05/2009 5:45 PM CDT Thea [facility] - CHEMISTRY ORDE RAMONMYA Performing Organization Address [facility] Co de Phone Number [facility] [address] [place] [address] * LIPASE BLOOD (12/05/2009 5:40 PM CDT) [facility] Lipase 128 23.0 - 300.0 U/L [facility] BLOOD SPECIMEN / Unknown 12/05/2009 5:40 PM CDT 12/05/2009 5:44 PM CDT Thea [facility] - CHEMISTRY ORDE JULIANNA Performing Organization Address [facility] Co de Phone Number [facility] [id number] [place] [address] * (ABNORMAL) COMPREHENSIVE METABOLIC PANEL (12/05/2009 5:40 PM CDT) [facility] BUN 9 9.0 - 20.0 mg/dl [facility] Sodium 142 137 - 145 mmol/L [facility] Potassium 4.1 3.6 - 5.0 mmol/L [facility] Chloride 104 98.0 - 107.0 mmol/L [facility] Glucose 87 75 - 110 mg/dl [facility] Creatinine 1.2 0.8 - 1.5 mg/dl [facility] AST 69(H) 17.0 - 59.0 U/L [facility] Alkaline Phosphatase 83 38.0 - 126.0 U/L [facility] Calcium 9.4 8.4 - 10.2 mg/dl [facility] Bilirubin Total 1.3 0.2 - 1.3 mg/dl [facility] Albumin 4.8 3.5 - 5.0 gm/dl [facility] Protein Total 8.6(H) 6.3 - 8.2 gm/dl [facility] CO2 31(H) 22.0 - 30.0 mEq/L [facility] ALT 81(H) 21.0 - 72.0 U/L [facility] eGFR by MDRD 72.4 ml/min/1.7 3m2 [facility] BLOOD SPECIMEN / Unknown 12/05/2009 5:40 PM CDT 12/05/2009 5:44 PM CDT Thea [facility] - CHEMISTRY [place] LEVINE [facility] [address] [place] [address] * (ABNORMAL) CBC W AUTO DIFFERENTIAL (12/05/2009 5:40 PM CDT) WBC 6.1 4.5 - 11.0 1000/mm3 [facility] RBC 5.60 4.7 - 6.1 10X6 [facility] Hemoglobin 14.6 13.0 - 18.0 gm/dl [facility] Hematocrit 42.4 39.0 - 54.0 % [facility] MCV 75.7(L) 80.0 - 99.0 fl [facility] MCH 26.1 25.0 - 31.0 pg [facility] MCHC 34.4 32.0 - 36.0 gm/dl [facility] RDW 15.0(H) 11.5 - 14.5 % [facility] Platelet Count 177 130.0 - 400.0 1000/mm3 [facility] Granulocytes % 70.1(H) 40.0 - 70.0 % [facility] Lymphocytes % 22.7 22.0 - 40.0 % [facility] Monocytes % 5.7 2.0 - 10.0 % [facility] Eosinophils % 1.0 0.0 - 6.0 % [facility] Basophils % 0.5 0.0 - 3.0 % [facility] Granulocytes Absolute 4.27 1.8 - 7.7 [facility] Lymphocytes Absolute 1.38 1.0 - 5.4 [facility] Monocytes Absolute 0.35 0.1 - 1.1 [facility] Eosinophils Absolute 0.06 0.0 - 0.7 [facility] Basophils Absolute 0.03 0.0 - 0.2 [facility] Comment Manual Diff Not Indicated [facility] BLOOD SPECIMEN / Unknown 12/05/2009 5:40 PM CDT 12/05/2009 5:44 PM CDT Thea CO[facility] - HEMATOLOGY ORD ERABLES [facility] [address] [place] [address] documented in this encounter Visit Diagnoses Diagnosis Anxiety Anxiety state, unspecified GERD (gastroesophageal reflux disease) Esophageal reflux Elevated LFT's Nonspecific abnormal results of liver function study Dizziness Dizziness and giddiness documented in this encounter Care Teams Supervisor Asbestos Removal Relationship Specialty Start Date End Date Nopcp, Patient PCP - General 11/23/09 01/02/10 documented as of this encounter
--- OUTSIDE RECORDS SUMMARY | 2024-09-10 03:45 | XMS_ITS | Encounter Summary ---
Author Organization [facility] Health Address [address] [place] [address] Care Team Providers Care Fabric Awning Repairer Name Role Phone Unavailable Primary Care Provider Unavailabl e Reason for Visit * Reason Comments Bladder infection Encounter Details Date Type Department Care Team (Late st Contact Info) Description 10/20/2019 3:20 PM REAL ESTATE VALUER Office Visit [facility] General Internal Medicine [address] [place] [address] Radha Palafox, HARDWARE TRAINER-BI DATA ARCHITECT [address] OF [facility] [place] [id number] Chronic low back pain without sciatica, unspecified back pain laterality (Primary Dx); Generalized anxiety disorder; PTSD (post-traumatic stress disorder); Sleep apnea, unspecified type; Dysuria; Colonic mass; Potential exposure to STD; Acute diverticulitis Social History Tobacco Use Types Packs/Day Years [...] Sign Reading Time Taken Comments Blood Pressure 126/78 10/20/2019 3:32 PM REAL ESTATE VALUER Pulse 80 10/20/2019 3:32 PM REAL ESTATE VALUER Temperature 36.9 ??C (98.5 ??F) 10/20/2019 3:32 PM CS T Respiratory Rate - - Oxygen Saturation - - Inhaled Oxygen Concentration - - Weight 132.5 kg (292 lb) 10/20/2019 3:32 PM REAL ESTATE VALUER Height 185.4 cm (6' 1 ) 10/20/2019 3:32 PM REAL ESTATE VALUER Body Mass Index 38.52 10/20/2019 3:32 PM REAL ESTATE VALUER documented in this encounter Patient Instructions * Patient Instructions* Azeb Phillips - 10/20/2019 3:36 PM REAL ESTATE VALUER How to Contact Us Between Office Visits [...] to be seen. Please call us at [phone], option 1 thenoption 1 in the morning you would like to be seen. For scheduling routine appointments, requesting refills or leaving a message for your doctor, the office phone is [phone]. You will be given options to get to the assistance you need. Phone lines are open from 8:00 am to4:30 pm Wednesday through Wednesday. All prescription refills must be requested during regular office phone hours. Our fax number is [phone]. After hours urgent calls that cannot wait untill phone lines are open on the next business day are given to the General Internal Medicine physician microsoft solutions architect. Please call [phone]. Identify yourself as a patient in our practice and give the crimping machine operator your doctor's name. The crimping machine operator will contact the physician microsoft solutions architect. You can generally expect a return call within 30 minutes. On weekends, physicians are seeing hospitalized patients and there maybe a longer wait. Visit our website at [email or web address] for information about our practice and an interactive health encyclopedia. Our clinic's missed appointment policy is: - Patients with 3 consecutively missed appointments OR 3 missed appointments in a 12 month period will no longer be seen by General Internal Medicine. They will be asked to seek Primary Care outside of [facility]. - A missed appointment is defined as: * An appointment cancelled less than 24 hours in advance *Arriving to a scheduled appointment too late to be seen (Patients who arrive to clinic later than their scheduled appointment time may not be seen) * Not showing up for an appointment ESTATE VALUER documented in this encounter Progress Notes * Radha Palafox, HARDWARE TRAINER-BI DATA ARCHITECT - 10/20/2019 2:06 PM CST HPI: Carlos Mcgee is a 49 year old male is here for routine visit. Follow up of his multiple complaints. CC: Tells me he has several felony charges against him . Psychiatrist fired him today. Payroll Manager fired him today. Claims psychiatrist used to give him Alprazolam 2 mg 5 x per day and was prescribed 2 days only andwas told by psych to get rest from PCP. Multiple complaints: Back pain--chronic Dysuria and urinate every 2 hours. Seen in ER at [facility]. No treatment Urine today was totally clean Wonders about STD--had oral sex some time in recent past. No discharges Shakes all the time. Thinks he has colon cancer. 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 Was treated for diverticulitis when he called on a weekend with sx Just finished course. No GI sx. Patient Active Problem List: Chest pain Panic attack Colitis Diverticulitis of colon Type 2 diabetes mellitus with hyperglycemia, without long-term current use of insulin Psychiatric disease--psychiatrist dropped him today. Past History and Surgical History Reviewed under [...] fluticasone propionate (FLONASE) 50 MCG/ACT nasal spray Goodrich 2 sprays into each nostril once dailyDisp: 15.8 g Rfl: 11 hyoscyamine 0.125 MG tablet Take 1 tablet by mouth every 4 hours as needed for Spasms Disp: 30 tablet Rfl: 0 omeprazole (PRILOSEC) 40 MG capsule Take 1 capsule by mouth daily before breakfast Disp: 30 capsuleRfl: 6 promethazine (PHENERGAN) 25 MG tablet Take 1 tablet by mouth every 6 hours as needed for Nausea/Vomiting Disp: 20 tablet Rfl: 0 simethicone (GAS-X) 80 MG chew tablet Take 80 mg by mouth Disp: Rfl: SITagliptin (JANUVIA) 50 MG tablet Take 0.5 tablets by mouth once daily Disp: 30 tablet Rfl: 1 sucralfate (CARAFATE) 1 GM tablet TK 1 T QID Disp: Rfl: 0 No current facility-administered medications for this visit. Review of Systems Constitutional: Positive for malaise/fatigue. HENT: Negative. Eyes: Negative. Respiratory: Negative. Cardiovascular: Negative. Gastrointestinal: Positive for nausea. Genitourinary: Positive for dysuria, frequency, hematuria and urgency. Musculoskeletal: Positive for back pain and myalgias. Skin: Negative. Neurological: Positive for tingling and tremors. Psychiatric/Behavioral: Positive for depression. The patient is nervous/anxious and has insomnia. Family and Social History Reviewed under History Tab OBJECTIVE: BP 126/78 Pulse 80 Temp 98.5 ??F (36.9 ??C) (Oral) Ht 6' 1 (1.854 m) Wt 292 lb (132.5 kg) BMI 38.52 kg/m2 He appears well, in no apparent distress. Alert and oriented times three, pleasant and cooperative. Ear--canals clear and TM's intact Nose--normal mucosa Mouth--pharynx without erythema. Neck--no thyroid enlargement or nodes palpated. Lungs--clear A&P Cor--S1 S2 RRR no murmurs Ext--no edema. Lumbar spine films No acute fracture or subluxation identified. Multilevel degenerative changes. Recent Labs Component Name 07/29/15 2126 10/09/13 1444 09/11/13 0004 02/02/13 0418 SODIUM 138 [...] >60 >60 EGFRAFR >60 - >60 >60 ALBUMIN 4.1 - 3.9 3.6 Recent Labs Component Name 08/01/19 HGBA1C 7.5 Recent Labs Component Name 07/29/15 2126 10/09/13 1444 09/11/13 0104 02/02/13 0328 12/05/09 1740 [...] = values in this interval not displayed. CT of abd 04/2018 Findings: The lung [...] abnormality.?Adjacent colonic wall thickening and stool retention. ASSESSMENT/PLAN Spent over an hour with him and than he would not leave and continued to ask nurse questions. Dysuria--frequency--nocturia--wants Cipro but told him I could give antibiotics without evidence ofinfection. Ordered Urine GC and Chlamydia after he questioned about STD--but too late to have done today. . Trial of Tamsulosin 0.4 mg HS Complains of tremors--shaking--no obvious shaking. Back pain--DJD on xray today. Nausea--takes Promethazine and Omeprazole prn which helps. Diabetes--mild. No meds. Has complained of side effects with everything he has been on. Sigmoid mass per CT scan 2018 [facility]--under care everywhere. GI referral and colonoscopy ordered. No weight loss Snoring and Mallampati score 3-4--ordered sleep studies in Jul but claims never called. Psychiatric disease--this is his biggest problem and probably would benefit from admission Fired by his psychiatrist today. Claims he was taking Alprazolam 2 mg 5 x per day but psychiatrist would not give him any after firing him. He will need to go to ER if he feels he is going through withdrawal. RV ~ 6 weeks prn sooner Radha Conte Petzchen ANP ESTATE VALUER documented in this encounter Plan of Treatment Not on file documented as of this encounter Visit Diagnoses Diagnosis Chronic low back pain without sciatica, unspecified back pain laterality- Primary Generalized anxiety disorder PTSD (post-traumatic stress disorder) Posttraumatic stress disorder Sleep apnea, unspecified type Dysuria Colonic mass Other specified disorder of intestines Potential exposure to STD Other specified personal history presenting hazards to health Acute diverticulitis documented in this encounter
--- OUTSIDE RECORDS SUMMARY | 2024-09-10 03:45 | XMS_ITS | Encounter Summary ---
Author Organization [facility] Address [address] [facility] [place] [address] Care Team Providers Care Hand Polisher Name Role Phone Unavailable Primary Care Provider Unavailabl e Reason for Visit * Reason Onset Date Comments ER UC Follow-up 09/07/2019 Encounter Details Date Type Department Care Team (Late Contact Info) Description 09/07/2019 Telephone [facility] General Internal Medicine [address] [facility] [address] [place] [address] Radha Palafox APRN-CNP [address] [facility] [address] [facility] [place] [phone] ER UC Follow-up Social History Tobacco Use Types Packs/Day [...] Telephone Encounter - Radha Palafox APRN-CNP - 09/07/2019 5:39 PM CERTIFIED SCRUM MASTER Told slight sinus infection and treated with Augmentin at [facility]. Said this was causing blurredvision. Also told he needed to see web feeder. Did not get Lisinopril. Seems I forgot to send to pharmacy. He now tells me he is allergic to Lisinopril so will wait till next visit to start anything. Diabetes seems to be doing better with Januvia. MELISA Diaz IFIED SCRUM MASTER * Telephone Encounter - Mallory Flores RN - 09/07/2019 3:49 PM CST Patient was seen In ER 09/06/[address] [facility] with troubles with vision Swollen hands and feet and rib pain Would like tp speak with you wai Please also patient asking about secondary BP med Nothing called into pharmacy CB [phone] - IFIED SCRUM MASTER documented in this encounter Plan of Treatment Not on file documented as of this encounter Visit Diagnoses Not on filedocumented in this encounter
--- OUTSIDE RECORDS SUMMARY | 2024-09-10 03:45 | XMS_ITS | Encounter Summary ---
Author Organization [facility] Address [address] [place] [address] Care Team Providers Care Packaging Sales Name Role Phone Alcon Munoz MD Primary Care Provider [phone] Reason for Visit * Reason Onset Date Comments Medication Problem 07/18/2012 Encounter Details Date Type Department Care Team ([facility] st Contact Info) Description 07/18/2012 Telephone [facility] - Family Medicine [address] [place] [phone] [place] [address] [place] [address] Medication Problem Social History Tobacco Use Types Packs/Day Years [...] Telephone Encounter - Alcon Munoz MD - 07/18/2012 4:40 PM CST Still having bilateral rib soreness in front and back. No fevers or SOB. Ibuprofen 800mg apparentlynot helping. Switch to vicodin. Limited script. If pain should continue or worsen, he will need an appt. celebrex gave mild rash. He is not SOB. Talking in full sentences. Secondly, needing xanax for his chronic anxiety. Cannot get into see new psych until 08/03/12. Toldhim this would be last script that I would write for him for the xanax. No exceptions. Lastly explained not to take xanax and vicodin together as can depress respiratory centers and potential to be fatal. meds called into [facility] [phone] Orders Placed This Encounter ??? ALPRAZolam (XANAX) 2 MG tablet Sig: Take 1 Tab by mouth 2 times daily as needed for Anxiety. Dispense: 40 Tab Refill: 0 ??? hydrocodone-acetaminophen (VICODIN) 5-500 MG tablet Sig: Take 1 Tab by mouth nightly as needed for Pain. Dispense: 14 Tab Refill: 0 NTURE THERAPIST * Telephone Encounter - Tara Soler - 07/18/2012 3:44 PM CST T/c from Carlos Mcgee. Pt states the his was prescribed celebrex and that medication has sulfa in it. Pt states that he is allergic to sulfa. Sulfa makes him break out in hives and short of breathe. Pt states that his condition has also not yet improved. NTURE THERAPIST documented in this encounter Plan of Treatment Not on file documented as of this encounter Visit Diagnoses Diagnosis Rib pain- Primary Chest pain, unspecified Panic attack Panic disorder without agoraphobia documented in this encounter Care Teams Packaging Sales Relationship Specialty Start Date End Date Alcon Munoz MD PCP - General Family Medicine 07/05/12 02/01/13 documented as of this encounter
--- OUTSIDE RECORDS SUMMARY | 2024-09-10 03:45 | XMS_ITS | Encounter Summary ---
Author Organization [facility] Address [address] [place] [address] Care Team Providers Care Home Housekeeper Name Role Phone Alcon Munoz MD Primary Care Provider [phone] Reason for Visit * Reason Comments Chest Pain Rib pain Diverticulitis being treated at thi s time. Encounter Details Date Type Department Care Team (Late st Contact Info) Description 08/03/2012 9:20 AM DIRECTOR OF CASEWORK DEPARTMENT Office Visit [facility] - Family Medicine [address] [place] [phone] [place] [address] [place], [place] [id number] Rib pain (Primary Dx); Diverticulitis of colon Social History Tobacco Use Types Packs/Day Years [...] Sign Reading Time Taken Comments Blood Pressure 132/90 08/03/2012 9:31 AM DIRECTOR OF CASEWORK DEPARTMENT Pulse 85 08/03/2012 9:31 AM DIRECTOR OF CASEWORK DEPARTMENT Temperature 37.1 ??C (98.7 ??F) 08/03/2012 9:31 AM CS T Respiratory Rate 16 08/03/2012 9:31 AM DIRECTOR OF CASEWORK DEPARTMENT Oxygen Saturation 98% 08/03/2012 9:31 AM DIRECTOR OF CASEWORK DEPARTMENT Inhaled Oxygen Concentration - - Weight 125.6 kg (276 lb 12.8 oz) 08/03/2012 9:31 AM DIRECTOR OF CASEWORK DEPARTMENT Height 188 cm (6' 2 ) 08/03/2012 9:31 AM DIRECTOR OF CASEWORK DEPARTMENT Body Mass Index 35.54 08/03/2012 9:31 AM DIRECTOR OF CASEWORK DEPARTMENT documented in this encounter Progress Notes * Alcon Munoz MD - 08/03/2012 9:[address] Alcon Munoz MD [facility] Family Medicine [address], [place] [address] Chief Complaint Patient presents with ??? Chest Pain Rib pain ??? Diverticulitis being treated at this time. HISTORY OF PRESENT ILLNESS 42 y.o. male Patient presents for persistent rib pain. Still aches at the bilateral costal margins / epigastric region. Occasionally feels soreness at themid back. Pain is described as a soreness as if was kicked in the ribs. Worse with palpation, sitting in hunched position, and also eating. Drinking water seemed to soothe it. Already on protonix. Sitting up relieves the pain and heating pad helps somewhat. Had finished steroid pack and did Ibuprofen and that was felt to help but then states Ibuprofen irritates his stomach and then ribs became more painful when he helped his 85 year old neighbor rake some leaves. Also reports that last week he had fever and abdominal pain evaluated at [facility] and CT showed diverticulitis. Put on cipro and flagyl. Feeling better now. Review of Systems Subjective fever. No chills. Rib pain as above. No anginal symptoms or dyspnea. + anxiety Patient Active Problem List Diagnoses ??? Chest Pain ??? Dizziness ??? Panic Attack ??? Headache Past Medical History Diagnosis Date ??? Depression [...] tobacco: Never Used ??? Alcohol Use: No Outpatient Prescriptions Prior to Visit Medication Sig Dispense Refill ??? ALPRAZolam (XANAX) 2 MG tablet Take [...] 10 mg by mouth once daily. ??? methylPREDNISolone (MEDROL DOSEPAK) 4 MG tablet Take by mouth as directed. 21 Packet 0 ??? hydrocodone-acetaminophen (VICODIN) 5-500 MG tablet Take 1 Tab by mouth nightly as needed for Pain. 14 Tab 0 ??? mqwmanycom-xrakurqmuxixt-ixxettcy (FIORICET) 50-325-40 MG tablet Take 1 Tab by mouth every 4 hours as needed. ??? cyclobenzaprine (FLEXERIL) 10 MG tablet Take 10 mg by mouth 3 times daily as needed. ??? azelastine (OPTIVAR) 0.05 % ophthalmic solution 1 Drop 2 times daily. 1 Bottle 2 ??? alprazolam (XANAX) 2 MG tablet Take 1 Tab by mouth 3 times daily as needed for Anxiety. 10 0 Allergies Allergen Reactions ??? Bactrim Ds Rash ??? Cipro (Ciprofloxacin Hydrochloride) Rash ??? Iodinated Contrast Agents ??? Levaquin Hallucinations ??? Lidocaine Rash and Swelling ??? Paxil (Paroxetine) PHYSICAL EXAMINATION BP 132/90 Pulse 85 Temp(Src) 98.7 ??F (Oral) Resp 16 Wt 276 lb 12.8 oz (125.556 kg) BMI 35.54 kg/m2 Wt Readings from Last 3 Encounters: 08/03/12 276 lb 12.8 oz (125.556 kg) 07/05/12 268 lb 8 oz (121.791 kg) 01/30/12 240 lb (108.863 kg) GENERAL: NAD, conversant. Obese. PSYCH: Courteous. Reactive mood and affect. HEENT: anicteric sclera CV: RRR, no MRGs; normal carotid upstroke and amplitude without bruits LUNGS: CTAB, normal excursion, normal aeration; no labored breathing or accessory muscle use CHEST WALL: No overlying skin changes. Bilateral lower anterior ribs above the epigastric area are tender to palpation. No crepitus. ABDOMEN: Soft, non-tender; non-distended, no masses or HSM EXTREMITIES: No peripheral edema or digital cyanosis SKIN: no rash, lesions or ulcers ASSESSMENT AND PLAN 1. Rib pain - treat as costochondritis. Has apparently had negative chest xray from recent ER visitlast month. Continue vicodin. May alternate with Ibuprofen. If pain persists, then can do another steroid taper but this is to be done after the diverticulitis symptoms resolve and completed antibiotics. If pain persists, then will obtain more imaging. 2. Diverticulitis of colon - finish antibx. Advance diet as tolerated. Orders Placed This Encounter ??? hydrocodone-acetaminophen (VICODIN) 5-500 MG tablet Sig: Take 1 Tab by mouth nightly as needed for Pain. Dispense: 20 Tab Refill: 0 ??? methylPREDNISolone (MEDROL DOSEPAK) 4 MG tablet Sig: Take by mouth as directed. Dispense: 21 Packet Refill: 0 Follow up if symptoms fail to resolve or worsening. Alcon Munoz M.D. Current Outpatient Prescriptions Medication Sig Dispense Refill ??? ciprofloxacin (CIPRO) 500 MG tablet Take 500 mg by mouth 2 times daily. ??? metroNIDAZOLE (FLAGYL) 500 MG tablet Take 500 mg by mouth 3 times daily. ??? ALPRAZolam (XANAX) 2 MG tablet Take [...] Take 10 mg by mouth once daily. CTOR OF CASEWORK DEPARTMENT documented in this encounter Plan of Treatment Not on file documented as of this encounter Visit Diagnoses Diagnosis Rib pain- Primary Chest pain, unspecified Diverticulitis of colon Diverticulitis of colon (without mention of hemorrhage) documented in this encounter Care Teams Home Housekeeper Relationship Specialty Start Date End Date Alcon Munoz MD PCP - General Family Medicine 07/05/12 02/01/13 documented as of this encounter
--- OUTSIDE RECORDS SUMMARY | 2024-09-10 03:45 | XMS_ITS | Encounter Summary ---
Author Organization [facility] Health Address [address] [facility] [place] [address] Care Team Providers Care Petroleum Engineering Teacher Name Role Phone Unavailable Primary Care Provider Unavailabl e Reason for Visit * Reason Onset Date Comments Order 08/02/2019 Encounter Details Date Type Department Care Team (Late st Contact Info) Description 08/02/2019 Telephone [facility] General Internal Medicine [address] [place] [address] Radha Palafox, TIN ASSORTER-SECONDARY CONNECTOR ARMATURE [address] OF [facility] [place] [phone] Order Social History Tobacco Use Types Packs/Day Years [...] Telephone Encounter - Mallory Flores RN - 08/02/2019 2:36 PM CST Patient calling with numerous question about visit from yesterday Reviewed not with him and explained Ha1c and medications Numerous questions on lab orders and he will get those done soon as lab was closed yesterday Has questions about why Hep C is being drawn Did diabetic education Needs Sleep study ordered and referral to GI. ELING CLERK documented in this encounter Plan of Treatment Not on file documented as of this encounter Visit Diagnoses Diagnosis Loud snoring- Primary Class 3 severe obesity with serious comorbidity in adult, unspecified BMI, unspecified obesity type (HCC) Sleep apnea, unspecified type documented in this encounter
--- OUTSIDE RECORDS SUMMARY | 2024-09-10 03:45 | XMS_ITS | Encounter Summary ---
Author Organization [facility] Address [address] [place] [address] Care Team Providers Care Financial Service Representative Name Role Phone Unavailable Primary Care Provider Unavailabl e Reason for Visit * Reason Comments Anxiety Pt states feeling an xious, states abx he is on for his diverticulitis are making him anxious Encounter Details Date Type Department Care Team (Late st Contact Info) Description 08/04/2014 11:07 PM FASTENER TECHNOLOGIST - 08/05/2014 1:33 AM FASTENER TECHNOLOGIST Emergency ER at [address] [address] Juan Luis Waddell, DO [address] [place] [id number] Anxiety (Primary Dx); Chest pain Discharge Disposition: Home or Self Care Social [...] Sign Reading Time Taken Comments Blood Pressure 140/82 08/05/2014 1:28 AM FASTENER TECHNOLOGIST Pulse 93 08/05/2014 1:29 AM FASTENER TECHNOLOGIST Temperature 37 ??C (98.6 ??F) 08/04/2014 10:54 PM FASTENER TECHNOLOGIST Respiratory Rate 18 08/05/2014 1:29 AM FASTENER TECHNOLOGIST Oxygen Saturation 97% 08/05/2014 1:29 AM FASTENER TECHNOLOGIST Inhaled Oxygen Concentration - - Weight 117.9 kg (260 lb) 08/04/2014 10:54 PM FASTENER TECHNOLOGIST Height 188 cm (6' 2 ) 08/04/2014 10:54 PM FASTENER TECHNOLOGIST Body Mass Index 33.38 08/04/2014 10:54 PM FASTENER TECHNOLOGIST documented in this encounter Discharge Instructions * Discharge Instructions* Juan Luis Waddell, - 08/04/2014 11:41 PM FASTENER TECHNOLOGIST Anxiety and Panic Attacks Your caregiver has informed you that you are having an anxiety or panic attack. There may be many forms of this. Most of the time these attacks come suddenly and without warning. They come at any time of day, including periods of sleep, and at any time of life. They may be strong and unexplained. Although panic attacks are very scary, they are physically harmless. Sometimes the cause of your anxiety is not known. Anxiety is a protective mechanism of the body in its fight or flight mechanism. Most of these perceived danger situations are actually nonphysical situations (such as anxiety over losing a job). CAUSES The causes of an anxiety or panic attack are many. Panic attacks may occur in otherwise healthy people given a certain set of circumstances. There may be a genetic cause for panic attacks. Some medications may also have anxiety as a side effect. SYMPTOMS Some of the most common feelings are: ?? Intense terror. ?? Dizziness, feeling faint. ?? Hot and cold flashes. ?? Fear of going crazy. ?? Feelings that nothing is real. ?? Sweating. ?? Shaking. ?? Chest pain or a fast heartbeat (palpitations). ?? Smothering, choking sensations. ?? Feelings of impending doom and that is near. ?? Tingling of extremities, this may be from over-breathing. ?? Altered reality (derealization). ?? Being detached from yourself (depersonalization). Several symptoms can be present to make up anxiety or panic attacks. DIAGNOSIS The evaluation by your caregiver will depend on the type of symptoms you are experiencing. The diagnosis of anxiety or panic attack is made when no physical illness can be determined to be a cause ofthe symptoms. TREATMENT Treatment to prevent anxiety and panic attacks may include: ?? Avoidance of circumstances that cause anxiety. ?? Reassurance and relaxation. ?? Regular exercise. ?? Relaxation therapies, such as yoga. ?? Psychotherapy with a psychiatrist or therapist. ?? Avoidance of caffeine, alcohol and illegal drugs. ?? Prescribed medication. SEEK IMMEDIATE MEDICAL CARE IF: ?? You experience panic attack symptoms that are different than your usual symptoms. ?? You have any worsening or concerning symptoms. Document Released: 08/30/2006 Document Revised: 11/21/2012 Document Reviewed: 01/01/2011 ExitCare?? Patient Information ??2013 [employer]. ENER TECHNOLOGIST documented in this encounter Medications at Time [...] as of this encounter ED Notes * Elise Burciaga RN - 08/05/2014 1:31 AM CST Pt educated on d/c instructions and follow up informatio. VSS. Pt ambulatory to waiting room. A&Ox4. Pt denies further questions at this time. ENER TECHNOLOGIST * Elise Burciaga RN - 08/05/2014 1:11 AM CST Pt requesting to speak with another doctor. Pt now requesting steroids. Pt had long discussion withDr. Waddell and opted not to take steroids r/t diabetes. Pt was told by Dr. Waddell to take NSAIDS and follow up with PCP. Pt reminded of situation and follow up instructions. ENER TECHNOLOGIST * Elise Burciaga RN - 08/04/2014 11:[address] Waddell at bedside. LYN * Juan Luis Waddell DO - 08/04/2014 11:12 PM CST Provider contact with the patient: 08/04/2014 23:12 Carlos Thanh Mcgee [id number] [facility] History Chief Complaint Patient presents with ??? Anxiety Pt states feeling anxious, states abx he is on for his diverticulitis are making him anxious Chief complaint narrative was entered by triage nurse, not by physician. HPI Comments: 11:12 PM Carlos Mcgee, a 44 y.o. male with a past medical history that includes--Diverticulitis, Depression, Anxiety, Panic attacks, GERD, DM --presents to the ER c/o intermittent anxiety for past month. Pt reports nausea, nasal congestion, SOB, increased sleep, rib pain, and multiple panic attacks. He states he took his Albuterol with no relief. Denies RUSSO. Pt suspects pleurisyand requests a CXR and blood work. Pt is prescribed to Xanax and takes daily Ibuprofen. He is on Cipro and Zeigler to treat his diverticulitis. Pt has been seen for these sx at multiple EDs. He is refusing admission. We have agreed to get a CXR and pt will follow up in outpatient with the referral physician. Denies smoking cigarettes. PCP: No primary provider on file Anxiety The history is provided by the patient. This is a new problem. The current episode started more than 2 days ago. The problem occurs constantly. Associated symptoms include shortness of breath. Pertinent negatives include no chest pain, no abdominal pain and no headaches. The symptoms are aggravatedby stress. Nothing relieves the symptoms. Treatments tried: Albuterol. The treatment provided no relief. Past Medical History Diagnosis Date ??? Depression ??? Anxiety ??? Panic attacks ??? Diverticulitis ??? GERD (gastroesophageal reflux disease) ??? Diverticulosis of the colon ??? Diabetes Past Surgical History Procedure Laterality Date ??? [...] Use: No ??? Drug Use: No ??? Sexual Activity: Not Currently Other Topics Concern ??? Not on file Social History Narrative Review of Systems Review of Systems Constitutional: Positive for malaise/fatigue. Negative for fever, chills and diaphoresis. HENT: Positive for congestion. Respiratory: Positive for shortness of breath. Negative for cough and wheezing. Cardiovascular: Negative. Negative for chest pain. Gastrointestinal: Positive for nausea. Negative for vomiting and abdominal pain. Genitourinary: Negative. Negative for dysuria and flank pain. Musculoskeletal: Negative for myalgias. Rib pain Skin: Negative. Negative for rash. Neurological: Negative. Negative for dizziness, weakness and headaches. Psychiatric/Behavioral: The patient is nervous/anxious. All other systems reviewed and are negative. Physical Exam BP 155/90 Pulse 99 Temp(Src) 98.6 ??F Resp 16 Ht 1.88 m (6' 2 ) Wt 117.935 kg (260 lb) BMI 33.37 kg/m2 SpO2 98% Physical Exam Constitutional: He is oriented to person, place, and time. He appears well- developed and well-nourished. No distress. HENT: Head: Normocephalic and atraumatic. Mouth/Throat: Oropharynx is clear and moist. Eyes: Conjunctivae and EOM are normal. Pupils are equal, round, and reactive to light. Neck: Normal range of motion and full passive range of motion without pain. Neck supple. Cardiovascular: Normal rate, regular rhythm, normal heart sounds, intact distal pulses and normal pulses. Pulmonary/Chest: Effort normal and breath sounds normal. No respiratory distress. He has no wheezes. He has no rales. Abdominal: Soft. Normal appearance and bowel sounds are normal. There is no tenderness. Musculoskeletal: Normal range of motion. He exhibits no edema or tenderness. Neurological: He is alert and oriented to person, place, and time. He has normal strength. Skin: Skin is warm and dry. Psychiatric: His mood appears anxious. Nursing note and vitals reviewed. Medications Current Outpatient Prescriptions Medication Sig Dispense Refill ??? hyoscyamine 0.125 MG tablet Dissolve 1 Tab under the tongue every 4 hours as needed for Spasms.20 Tab 0 ??? omeprazole (PRILOSEC) 40 MG capsule Take 1 Cap by mouth daily before breakfast. 30 Cap 0 ??? hydrocodone-acetaminophen (NORCO) 5-325 MG tablet Take 1 Tab by mouth every 4 hours as needed for Pain. 10 Tab 0 ??? promethazine (PHENERGAN) 25 MG [...] 25 mg by mouth as needed. ??? citalopram (CELEXA) 10 MG tablet Take 10 mg by mouth once daily. Procedures Procedures ECG Interpretation Interpreted by ED provider Rhythm: sinus rhythm Ectopy: none Rate: normal BPM: 100 Conduction: conduction normal Clinical impression: non-specific ECG Comments: T waves non specific ECG Rhythm Interpretation ECG Rhythm: normal sinus. ECG Rate: normal. ECG Heart Rate: 100. Lab Interpretation Oxygen Saturation Interpretation The oxygen saturation level is: 98%. The patient was on Room Air for the saturation measurement. Measurement frequency: Spot Check. Oxygen saturation interpretation is Normal. Intervention(s) used: None. Results for orders placed during the hospital encounter of 08/04/14 URINALYSIS ROUTINE W/REFLEX TO CULTURE Result Value Range Color UA Dark Yellow Straw, Yellow, Dark Yellow Clarity UA Clear Specific [place] UA >1.030 (*) 1.005-1.030 pH UA 6.0 5.0-8.0 pH Protein UA 1+ (*) Negative Blood UA Negative Negative Leukocyte UA 1+ (*) Negative Nitrite UA Negative Negative Glucose UA Negative Negative Ketone UA Trace (*) Negative Bili UA Negative Negative Urobilinogen UA 1.0 0.1-1.0 EU/dL WBC UA Auto 0-2 0-2, 2-5 #/hpf RBC UA Auto 0-2 0-2, 2-5 #/hpf Epithelial Cell UA Auto 0-2 0-2, 2-5 #/hpf Bacteria UA Auto None seen None seen Hyaline Casts UA Auto 0-2 0-2 #/lpf Reflex Status Culture to follow XR CHEST PA AND LATERAL (Results Pending) Progress Notes 12:10 AM Preliminary view and read of CXR by me: negative 12:10 AM Pt is medically stable for d/c home at this time. I have given the patient instructions regarding his diagnosis, expectations, follow up, and return precautions. I explained to the patient that emergent conditions may arise and to return to the ER for new, worsening, or any persistent conditions. I've explained the importance of following up with the referral physician as instructed. The patient verbalized understanding of the discharge instructions. ED Course Medical Decision Making I have reviewed the: Previous Chart, Nursing Notes and Vitals. I have interpreted the following results: Labs, 12 Lead EKG, Rhythm Strip, X-Ray and Oxygen Saturation. Orders Placed This Encounter ??? CULTURE URINE ??? XR CHEST PA AND LATERAL ??? URINALYSIS ROUTINE W/REFLEX TO CULTURE ??? EKG 12-LEAD Diagnosis: Final diagnoses: Chest pain Anxiety (Primary) New Medications: New Prescriptions No medications on file I have advised the patient to follow-up with: [facility] Community Hadoop Analyst [id number] [facility] [id number] Schedule an appointment as soon as possible for a visit Disposition: Discharged I have reviewed the information recorded by the scribe and agree with its accuracy and contents--Dr. Waddell 08/05/2014 12:12 AM Transcribed by Luz Escobar acting scribe on behalf of Dr. Waddell 08/04/2014 11:11 PM ENER TECHNOLOGIST documented in this encounter Plan of Treatment Not on file documented as of this encounter Procedures Procedure Name Priority Date/Time Associated Diagnosis Comments GLUCOSE - POINT OF CARE Routine 08/05/2014 12:44 AM FASTENER TECHNOLOGIST XR CHEST 2VW STAT 08/05/2014 12:02 AM FASTENER TECHNOLOGIST Chest pain URINALYSIS REFLEX MICROSCOPIC REFLEX CULTURE STAT 08/04/2014 11:49 PM FASTENER TECHNOLOGIST CULTURE URINE STAT 08/04/2014 11:49 PM FASTENER TECHNOLOGIST EKG 12-LEAD STAT 08/04/2014 11:13 PM FASTENER TECHNOLOGIST Chest pain documented in this encounter Results * GLUCOSE - POINT OF CARE (08/05/2014 12:44 AM FASTENER TECHNOLOGIST) [facility] Glucose WB/POC 103 70 - 106 mg/dL 08/05/2014 5:26 PM FASTENER TECHNOLOGIST [facility] Blood BLOOD SPECIMEN / Unknown 08/05/2014 12:44 AM FASTENER TECHNOLOGIST 08/05/2014 5:26 PM FASTENER TECHNOLOGIST Juan Luis Waddell DO LAB - POINT OF CARE ORDERABLES [facility] [address] [place] [address] * XR CHEST PA AND LATERAL (08/05/2014 12:02 AM FASTENER TECHNOLOGIST) Anatomical Region Laterality Modality Chest Radiographic Katarzyna ging 08/05/2014 8:59 AM FASTENER TECHNOLOGIST Impressions 08/05/2014 8:59 AM FASTENER TECHNOLOGIST No acute cardiopulmonary disease. Narrative 08/05/2014 8:59 AM FASTENER TECHNOLOGIST Two views chest Indication: Chest pain Comparison: Chest x-ray 01/01/2008 Findings: The lungs are clear. Heart size normal. No evidence of pneumothorax or pleural effusion. Procedure Note Getachew Santamaria MD - 08/05/2014 Two views chest Indication: Chest pain Comparison: Chest x-ray 01/01/2008 Findings: The lungs are clear. Heart size normal. No evidence of pneumothorax or pleural effusion. IMPRESSION No acute cardiopulmonary disease. Juan Luis Waddell DO DIAGNOSTIC IMAGING O [place] * CULTURE URINE (08/04/2014 11:49 PM FASTENER TECHNOLOGIST) Culture No Growth (<1,000 CFU/mL) KATIE 08/07/2014 8:39 AM FASTENER TECHNOLOGIST [facility] Urine URINE SPECIMEN OBTAINED BY CLEAN CATCH PROCEDURE / Unknown 08/04/2014 11:49 PM FASTENER TECHNOLOGIST 08/04/2014 11:54 PM FASTENER TECHNOLOGIST Juan Luis Waddell DO LAB - MICROBIOLOGY O RDERAMONIE [facility] [address] [place] * (ABNORMAL) URINALYSIS ROUTINE W/REFLEX TO CULTURE (08/04/2014 11:49 PM FASTENER TECHNOLOGIST) Color UA Dark Yellow Straw, Yellow, Dark Yellow 08/05/2014 12:12 AM FASTENER TECHNOLOGIST [facility] Clarity UA Clear 08/05/2014 12:12 AM FASTENER TECHNOLOGIST [facility] Specific [place] UA >1.030(H) 1.005 - 1.030 08/05/2014 12:12 AM FASTENER TECHNOLOGIST [facility] pH UA 6.0 5.0 - 8.0 pH 08/05/2014 12:12 AM FASTENER TECHNOLOGIST [facility] Protein UA 1+(A) Negative 08/05/2014 12:12 AM FASTENER TECHNOLOGIST [facility] Blood UA Negative Negative 08/05/2014 12:12 AM FASTENER TECHNOLOGIST [facility] Leukocyte UA 1+(A) Negative 08/05/2014 12:12 AM FASTENER TECHNOLOGIST [facility] Nitrite UA Negative Negative 08/05/2014 12:12 AM FASTENER TECHNOLOGIST [facility] Glucose UA Negative Negative 08/05/2014 12:12 AM [facility] Ketone UA Trace(A) Negative 08/05/2014 12:12 AM [facility] Bilirubin UA Negative Negative 08/05/2014 12:12 AM [facility] Urobilinogen UA 1.0 0.1 - 1.0 EU/dL 08/05/2014 12:12 AM [facility] WBC UA Auto 0-2 0-2, 2-5 #/hpf 08/05/2014 12:12 AM FASTENER TECHNOLOGIST [facility] RBC UA Auto 0-2 0-2, 2-5 #/hpf 08/05/2014 12:12 AM [facility] Epithelial Cell UA Auto 0-2 0-2, 2-5 #/hpf 08/05/2014 12:12 AM [facility] Bacteria UA Auto None seen None seen 08/05/2014 12:12 AM [facility] Hyaline Casts UA Auto 0-2 0 - 2 #/lpf 08/05/2014 12:12 AM [facility] Reflex Status Culture to follow 08/05/2014 12:12 AM [facility] Urine URINE SPECIMEN OBTAINED BY CLEAN CATCH PROCEDURE / Unknown 08/04/2014 11:49 PM FASTENER TECHNOLOGIST 08/04/2014 11:54 PM [facility] Juan Luis Waddell DO LAB - URINALYSIS ORD ERABLES [facility] [address] [place] [address] * EKG 12-LEAD (08/04/2014 11:13 PM FASTENER TECHNOLOGIST) Ventricular Rate 100 BPM [facility] Atrial Rate 100 BPM [facility] P-R Interval 98 ms [facility] QRS Duration ms 96 ms [facility] Q-T Interval ms 346 ms [facility] QTC Calculation (Bezet) 446 ms [facility] Calculated P [place] 30 degrees [facility] Calculated R [place] 49 degrees [facility] Calculated T [place] 12 degrees [facility] Interpretation EKG Sinus rhythm with short MN Possible Left atrial enlargement Borderline ECG Confirmed by ANDREE RUSSELL, BRIT ([id number]) on 08/06/2014 9:56:57 AM [facility] 08/04/2014 11:1 3 PM FASTENER TECHNOLOGIST 08/06/2014 9:56 AM FASTENER TECHNOLOGIST Juan Luis Waddell DO ECG ORDERABLES [facility] documented in this encounter Visit Diagnoses Diagnosis Anxiety- Primary Anxiety state, unspecified Chest pain documented in this encounter
--- OUTSIDE RECORDS SUMMARY | 2024-09-10 03:45 | XMS_ITS | Encounter Summary ---
Author Organization [facility] Address [address] [place] [address] Care Team Providers Care Bottle Selector Name Role Phone Unavailable Primary Care Provider Unavailabl e Encounter Details Date Type Department Care Team (Late st Contact Info) Description 10/20/2019 Orders Only [facility] [address] [place] [address] Radha Palafox, [employer]OMOS EXECUTIVE PRODUCER-STEREOTYPER HELPER [address] [facility] [address] [facility] [place] [id number] Chronic low back pain without sciatica, unspecified back pain laterality Social History Tobacco Use Types Packs/Day Years [...] on file documented as of this encounter Results * XR LUMBAR SPINE 4VW OR MORE (10/20/2019 3:18 PM LOAN SERVICING OFFICER) Anatomical Region Laterality Modality Spine Radiographic Katarzyna ging 10/20/2019 3:23 PM LOAN SERVICING OFFICER Impressions 10/20/2019 3:38 PM LOAN SERVICING OFFICER IMPRESSION: No acute fracture or subluxation identified. Multilevel degenerative changes. Dictated by Devon Jolly MD (cardiac cath lab radiology technologist) I, Dr. COURTNEY REYES M.D. have personally reviewed and interpreted this examination/study. This report was electronically signed by COURTNEY REYES M.D. ??on 10/20/2019 3:38 PM . Narrative 10/20/2019 3:38 PM LOAN SERVICING OFFICER EXAMINATION: XR LUMBAR SPINE 4VW OR MORE [...] degenerative changes. Dictated by Devon Jolly MD (cardiac cath lab radiology technologist) I, Dr. COURTNEY REYES M.D. have personally reviewed and interpretedthis examination/study. This report was electronically signed by COURTNEY REYES M.D. on10/20/2019 3:38 PM . Radha Palafox PROMOS EXECUTIVE PRODUCER-STEREOTYPER HELPER DIAGNOSTIC IMAGING ORDERABLES documented in this encounter Visit Diagnoses Diagnosis Chronic low back pain without sciatica, unspecified back pain laterality- Primary Chronic low back pain without sciatica, unspecified back pain laterality documented in this encounter
--- OUTSIDE RECORDS SUMMARY | 2024-09-10 03:45 | XMS_ITS | Encounter Summary ---
Author Organization [facility] Address [address] [place] [address] Care Team Providers Care Crystal Machining Coordinator Name Role Phone Nopcp, Patient Primary Care Provider Unavailabl e Reason for Visit * Reason Comments Anxiety Depression denies SI/HI, been o ff meds for 2-3 days, stress with family Encounter Details Date Type Department Care Team (Late st Contact Info) Description 01/30/2012 6:55 PM CDT - 01/30/2012 10:31 PM [place] [address] Avelina Patel MD [address] [place] [address] [place] [address] Anxiety Discharge Disposition: Home or Self Care Social [...] Sign Reading Time Taken Comments Blood Pressure 112/76 01/30/2012 10:29 PM CDT Pulse 82 01/30/2012 10:29 PM CDT Temperature 36.9 ??C (98.4 ??F) 01/30/2012 10:29 PM C DT Respiratory Rate 16 01/30/2012 10:29 PM CDT Oxygen Saturation 95% 01/30/2012 10:30 PM CDT Inhaled Oxygen Concentration - - Weight 108.9 kg (240 lb) 01/30/2012 6:59 PM CDT Height 188 cm (6' 2 ) 01/30/2012 6:59 PM CDT Body Mass Index 30.81 01/30/2012 6:59 PM CDT documented in this encounter Discharge Instructions * Discharge Instructions* Avelina Patel MD - 01/30/2012 10:21 PM CDT Anxiety and Panic Attacks Your [...] the mostcommon feelings are: ?? Intense terror ?? Dizziness, feeling faint ?? Hot and cold flashes ?? Fear of going crazy ?? Feelings that nothing is real ?? Sweating, trembling ?? Chest pain and palpitations (irregular heart) ?? Shaking ?? Smothering, choking sensations (feelings) ?? Feelings of impending doom and that is near ?? Tingling of extremities (arms/hands and legs/feet), this [...] Document Re-Released: 09/18/2008 ExitCare?? Patient Information ??[employer]. * Discharge Instructions* Document, Scanned - 02/16/2012 7:31 AM CDT documented in this encounter Medications at Time of Discharge Medication Sig Dispensed Refills Start Date End Date ALPRAZolam (XANAX) 1 MG tablet Take 1 Tab by mouth 2 times daily. 4 Tab no 01/30/2012 07/05/2012 alprazolam (XANAX) 2 MG tablet Take 1 Tab by mouth 3 times daily as needed for Anxiety. 10 0 12/05/2009 08/03/2012 citalopram (CELEXA) 10 MG tablet Take 10 mg by mouth once daily. 08/01/2019 pantoprazole (PROTONIX) 40 MG packet Take 40 mg by mouth once daily. 09/11/2013 documented as of this encounter Progress Notes * Kirt Meehan - 01/30/2012 9:01 PM CDT Diag:Discharge Admitting Provider: Unit: Room: Number for Report: Pt current location: ED Past Medical History Diagnosis Date ??? Depression ??? Anxiety ??? Panic attacks ??? Diverticulitis ??? GERD (gastroesophageal reflux disease) ??? Diverticulosis of the colon Suicidal or Homicidal?n Plan: Hallucinating or Confused Patient?n Residence (private, longterm, etc): private DD/Autism Patient?n Problems Ambulating?n Hx of falls/Recent Falls? n Adaptive devices? n Needs Assistance with ADL's? n Breathing Problems? n Infected/Isolation Patient? n Last date/type Decubitus/Wounds present? n Bariatric Patient? n Lines/Tubes? n Aggression/Violence? n LEO I/LEO II n Guardianship? n Involuntary Patient? n Additional [facility] History? n Comments: CENTRAL INTAKE ASSESSMENT PERSONS PROVIDING INFORMATION:Patient REASON FOR ASSESSMENT:patient came in for panic attacks, out of medications. After assessment foundpatient denies suicidal, homicidal thoughts, denies psychosis. ED and Dr Knapp advised ok to discharge home and follow up with out patient mental health referrals. PSYCHIATRIC HISTORY (Onset, Progression, Treatment, Compliance):hx of one in patient admission to [facility], currently not taking his medications as prescribed. . 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 RECENT CHANGES IN BEHAVIOR (Sleep, ADL's, Appetite, Cognition, Mood):sleep fluctuates, decrease in adls, appetite good, increase in depression, anxiety attacks. PRESENTATION DURING EVAL (Affect, Appearance, Speech, Behavior, Mental Status):flat affect, disheveled, clear speech, problems with concentration RISK TO SELF (Suicidal Ideation, Self-harm Impulses):denies RISK TO OTHERS (Homicidal ideation, Violent Behavior):denies SYMPTOMS OF PSYCHOSIS OR DECOMPENSATION:denies ASSETS (Primary Support, Gnosticist, Hobbies, Coping Skills): CENTRAL INTAKE MEDICAL SCREENING:denies DISPOSITION ([facility] admission, Non-[facility] transfer, Referrals Given):discharge SUMMARY OF CRITERIA AND FACTORS SUPPORTING DISPOSITION: Paradise I:depressive Disorder NOS Paradise II:deferred Paradise III:denies Paradise IV:psychosocial, primary, financial Paradise V:55 * Kirt Meehan - 01/30/2012 8:55 PM CDT CENTRAL INTAKE ASSESSMENT PERSONS PROVIDING INFORMATION:Patient REASON FOR ASSESSMENT:patient came in for panic attacks, out of medications. After assessment foundpatient denies suicidal, homicidal thoughts, denies psychosis. ED and Dr Knapp advised ok to discharge home and follow up with out patient mental health referrals. PSYCHIATRIC HISTORY (Onset, Progression, Treatment, Compliance):hx of one in patient admission to [place] hospital, currently not taking his medications as prescribed. . 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 RECENT CHANGES IN BEHAVIOR (Sleep, ADL's, Appetite, Cognition, Mood):sleep fluctuates, decrease in adls, appetite good, increase in depression, anxiety attacks. PRESENTATION DURING EVAL (Affect, Appearance, Speech, Behavior, Mental Status):flat affect, disheveled, clear speech, problems with concentration RISK TO SELF (Suicidal Ideation, Self-harm Impulses):denies RISK TO OTHERS (Homicidal ideation, Violent Behavior):denies SYMPTOMS OF PSYCHOSIS OR DECOMPENSATION:denies ASSETS (Primary Support, Gnosticist, Hobbies, Coping Skills): CENTRAL INTAKE MEDICAL SCREENING:denies DISPOSITION ([facility] admission, Non-[facility] transfer, Referrals Given):discharge SUMMARY OF CRITERIA AND FACTORS SUPPORTING DISPOSITION: Paradise I:depressive Disorder NOS Paradise II:deferred Paradise III:denies Paradise IV:psychosocial, primary, financial Paradise V:55 Admitting Physician: Hospital Unit and Room: Nurse Report Phone: Special Notes: documented in this encounter ED Notes * Chyna Sidhu RN - 01/30/2012 10:29 PM CDT Patient discharged to home with steady gait. Verbalized understanding of discharge instructions. * Chyna Sidhu RN - 01/30/2012 10:04 PM CDT Pt calm and cooperative, resting on stretcher. Pt updated at this time. * Chyna Sidhu RN - 01/30/2012 8:17 PM CDT Placed patient on cardiac monitoring for 30 minutes because patient expressed concern that something may be 'wrong' with his heart. 3 lead is normal, VSS. * Chyna Sidhu RN - 01/30/2012 7:26 PM CDT Patient roomed, Alert and oriented. Patient denies SI/HI. * Avelina Patel MD - 01/30/2012 7:07 PM CDT Provider contact with the patient: 01/30/2012 7:07 PM Carlos Law Arely [id number] [facility] EMERGENCY DEPT History Chief Complaint Patient presents with ??? Anxiety ??? Depression denies SI/HI, been off meds for 2-3 days, stress with family HPI Comments: Patient reports increasing depression and anxiety over past few weeks due to father having stroke. Symptoms gradually increasing because patient is out of celexa and because he has beenbanned from seeing father in hospital. Denies suicidal or homicidal thoughts. Reports that he has h/o depression and anxiety and has been treated in past by multiple psychiatrists. States his current psychiatrist is Dr Branch, affiliated with [facility], but that he has only spoken over phone and never seen in office. General The history is provided by the patient (History for chief complaint of depression and anxiety). This is a recurrent problem. The current episode started more than 1 week ago. The problem has been gradually worsening. The patient is experiencing no pain. Pertinent negatives include no chest pain andno abdominal pain. Associated symptoms comments: Fingers tingling . The symptoms are aggravated by nothing. The symptoms are relieved by nothing. He has tried nothing for the symptoms. Past Medical History Diagnosis Date ??? Depression ??? Anxiety ??? Panic attacks ??? Diverticulitis ??? GERD (gastroesophageal reflux disease) ??? Diverticulosis of the colon Past Surgical History Procedure Date ??? Pr removal gallbladder ??? Cholecystectomy Family History Problem Relation Age of Onset ??? Stroke Father ??? Cirrhosis Mother ??? Bipolar Disorder Mother History Social History ??? Marital Status: Spouse Name: N/A Number of Children: N/A ??? Years of Education: N/A Occupational History ??? Not on file. Social History Main Topics ??? Smoking status: Former Smoker ??? Smokeless tobacco: Not on file ??? Alcohol Use: No ??? Drug Use: No ??? Sexually Active: Not on file Other Topics Concern ??? Not on file Social History Narrative ??? No narrative on file Review of Systems Review of Systems Constitutional: Negative for fever and chills. HENT: Negative for congestion and sore throat. Eyes: Negative for blurred vision. Respiratory: Negative for cough. Cardiovascular: Negative for chest pain and leg swelling. Gastrointestinal: Negative for nausea, vomiting and abdominal pain. Genitourinary: Negative for dysuria. Musculoskeletal: No recent injury Skin: Positive for itching and rash (several excoriated areas on arms - no cellulitis, no fluctuance. ). Neurological: Positive for tingling (to left small finger for 2 days. ). Negative for focal weakness. All other systems reviewed and are negative. Physical Exam BP 130/88 Pulse 88 Temp 97.9 ??F Resp 18 Ht 6' 2 (1.88 m) Wt 240 lb (108.863 kg) BMI 30.81 kg/m2 SpO2 98% Physical Exam Nursing note and vitals reviewed. Constitutional: He is oriented to person, place, and time and well-developed, well-nourished, and in no distress. HENT: Head: Normocephalic and atraumatic. Right Ear: External ear normal. Left Ear: External ear normal. Nose: Nose normal. Eyes: Conjunctivae are normal. Pupils are equal, round, and reactive to light. Neck: Normal range of motion. Cardiovascular: Normal rate, regular rhythm, normal heart sounds and intact distal pulses. Strong radial pulses bilateral and normal cap refill at all fingers. Pulmonary/Chest: Effort normal and breath sounds normal. No respiratory distress. He has no wheezes. He has no rales. Abdominal: Soft. He exhibits no distension. There is no tenderness. Musculoskeletal: Normal range of motion. He exhibits no edema. Neurological: He is alert and oriented to person, place, and time. GCS score is 15. Skin: Skin is warm and dry. No rash noted. Psychiatric: Affect normal. Medications Current Outpatient Prescriptions Medication Sig Dispense Refill ??? pantoprazole (PROTONIX) 40 MG packet Take 40 mg by mouth once daily. ??? citalopram (CELEXA) 10 MG tablet Take 10 mg by mouth once daily. ??? ALPRAZolam (XANAX) 1 MG tablet Take 1 Tab by mouth 2 times daily. 4 Tab no ??? alprazolam (XANAX) 2 MG tablet Take 1 Tab by mouth 3 times daily as needed for Anxiety. 10 0 Procedures Procedures EKG Interpretation Lab Interpretation Oxygen Saturation Interpretation The oxygen saturation level is: 99%. The patient was on Room Air for the saturation measurement. Measurement frequency: Spot Check. Oxygen saturation interpretation is Normal. Results for orders placed during the hospital encounter of 01/30/12 DRUG SCREEN TRIAGE PANEL Component Value Range Phencyclidine Screen Urine NOT DETECTED 25 ng/dl C Benzodiazepines Screen Urine DETECTED (*) 300 ng/ml Cocaine Screen Urine NOT DETECTED 300 ng/ml Amphetamines Screen Urine NOT DETECTED 1000 ng/ml Cannabinoids Screen Urine NOT DETECTED 50 ng/ml C Opiates Screen Urine NOT DETECTED 300 ng/ml Barbiturates Screen Urine NOT DETECTED 300 ng/ml Progress Notes 10:25 PM Patient has been evaluated by central intake. There is no criteria for admission at this time. I have attempted to reach his PCP at both numbers he provided unsuccessfully. I have given patient Xanax refill of 4 tablets of 1 mg. I instructed patient that all further refills must be throughhis PCP. Patient voices understanding and is agreeable with the plan. All other questions and concerns have been addressed. ED Course Medical Decision Making I have reviewed the: Previous Chart, Nursing Notes and Vitals. I have interpreted the following results: Labs and Oxygen Saturation. I have discussed the case with Psychiatry. New Prescriptions ALPRAZOLAM (XANAX) 1 MG TABLET Take 1 Tab by mouth 2 times daily. Follow-up with: Your psychiatrist Call today Patient Nopcp DISCHARGED HOME Clinical Impression Encounter Diagnosis Name Primary? Anxiety * Nate Zavala RN - 01/30/2012 7:05 PM CDT Central Intake called and aware of pt arrival. Pt to be assessed per Central vendor analyst. documented in this encounter Miscellaneous Notes * Miscellaneous Scans - Document, Scanned - 02/16/2012 7:48 AM CDT documented in this encounter Plan of Treatment Not on file documented as of this encounter Procedures Procedure Name Priority Date/Time Associated Diagnosis Comments DRUG SCREEN URINE TRIAGE PANEL STAT 01/30/2012 7:20 PM CDT documented in this encounter Results * (ABNORMAL) DRUG SCREEN TRIAGE PANEL (01/30/2012 7:20 PM CDT) Phencyclidine Screen Urine NOT DETECTED 25 ng/dl [...] URINE CHEMI STRY ORDERABLES Performing Organization Address City/State/[facility] Co de Phone Number [facility] [address] [place] [address] documented in this encounter Visit Diagnoses Diagnosis Anxiety Anxiety state, unspecified documented in this encounter Care Teams Crystal Machining Coordinator Relationship Specialty Start Date End Date Nopcp, Patient PCP - General 01/03/10 07/04/12 documented as of this encounter
--- OUTSIDE RECORDS SUMMARY | 2024-09-10 03:45 | XMS_ITS | Encounter Summary ---
Author Organization [facility] Address [address] [facility] [place] [address] Care Team Providers Care Handyman Name Role Phone Radha Palafox APRN-CANDY COUNTER CLERK Primary Care Provi jon Encounter Details Date Type Department Care Team (Late st Contact Info) Description 07/24/2019 Orders Only [facility] [address] [facility] [address] [place] [address] Bayron Bernal MD [address] [facility] [place] [address] Social History Tobacco Use Types Packs/Day Years [...] on filedocumented in this encounter Care Teams Handyman Relationship Specialty Start Date End Date Radha Palafox APRN-CANDY COUNTER CLERK PCP - General 07/19/19 07/27/19 documented as of this encounter
--- OUTSIDE RECORDS SUMMARY | 2024-09-10 03:45 | XMS_ITS | Encounter Summary ---
Author Organization [facility] Address [address] [facility] [place] [address] Care Team Providers Care Twist Maker Name Role Phone Unavailable Primary Care Provider Unavailabl e Reason for Visit * Reason Onset Date Comments Male Genitourinary 10/11/2019 Encounter Details Date Type Department Care Team (Late st Contact Info) Description 10/11/2019 Telephone [facility] [address] [facility] [address] [place] [address] Radha Palafox, ENAMEL CRACKER-QUARTER INSPECTOR [address] DIV OF [place] [id number] Male Genitourinary Social History Tobacco Use Types Packs/Day Years [...] * Telephone Encounter - Lynne Mendes - 10/13/2019 8:47 AM CST Pt calling in to request to be scheduled b/c c/o, 2/10 mild back pain, mild discomfort when urinates and reports he is sleeping a lot, like a fatigue w/ nausea. Pt reports he is NOT passing blood at this time when urinates. Warm conference to schedulers for further assistance per fatigue protocol, nausea, and [employer] message. Closing statement provided. Pt verbalized understanding. CB# [phone] Routed to provider for further review 10/17/19 @ 2:40pm w/ [employer] message Called him back-- doesn't feel well Thinks he might have kidney stone--thinks due to hx of hematuria last week. None since. Sleeping a lot. Thinks he might be admitted. Nausea. Knot in back. Can't come to office--no ride. Wants some type of treatment over the phone. Told him I could not do this. Told to call when he could come in on same day. ?? MELISA Diaz ?? IC WORKS COMMISSIONER * Telephone Encounter - Radha Palafox APRN-CNP - 10/12/2019 8:31 AM PUBLIC WORKS COMMISSIONER Called him back-- doesn't feel well Thinks he might have kidney stone--thinks due to hx of hematuria last week. None since. Sleeping a lot. Thinks he might be admitted. Nausea. Knot in back. Can't come to office--no ride. Wants some type of treatment over the phone. Told him I could not do this. Told to call when he could come in on same day. MELISA Diaz IC WORKS COMMISSIONER * Telephone Encounter - Jovan Grewal - 10/11/2019 11:16 AM CST Pt called to inform the provider that he had gone to the ED about 2 Sundays ago, related to blood coming out of his penis. Reports he is still having back pain, his urine smells strong at times, has nausea at times, but states he doesn't see any more blood. Reports he is still taking the Flagyl that was prescribed, but doesn't know if he has a kidney infection or not, and reports he slept all day yesterday. Pt is requesting to have the provider give him a call back at [phone]. [place] offered to triage for an acute care appt, pt refused, and stated he wouldn't have a ride Message routed to provider for review and assistance IC WORKS COMMISSIONER documented in this encounter Plan of Treatment Not on file documented as of this encounter Visit Diagnoses Not on filedocumented in this encounter
--- OUTSIDE RECORDS SUMMARY | 2024-09-10 03:45 | XMS_ITS | Encounter Summary ---
Author Organization [facility] Address [address] [place] [address] Care Team Providers Care Vehicle Upholsterer Name Role Phone Nopcp, Patient Primary Care Provider Unavailabl e Reason for Visit * Reason Comments Anxiety pt reports is out of xanax x 3 days ago , and also c/o of epigastric pain at this time and urinating freq since yesterday Nausea pt also reports naus ea since yesterday Encounter Details Date Type Department Care Team (Late st Contact Info) Description 11/30/2009 4:37 PM CDT - 11/30/2009 7:07 PM CDT Emergency ER at [address] [address] Anxiety; Abdominal Pain, Epigastric Discharge Disposition: Home or Self Care Social [...] Sign Reading Time Taken Comments Blood Pressure 135/90 11/30/2009 7:06 PM CDT Pulse 86 11/30/2009 7:06 PM CDT Temperature 36.6 ??C (97.8 ??F) 11/30/2009 4:53 PM CD T Respiratory Rate 18 11/30/2009 7:06 PM CDT Oxygen Saturation 100% 11/30/2009 7:06 PM CDT Inhaled Oxygen Concentration - - Weight 104.3 kg (230 lb) 11/30/2009 4:53 PM CDT Height 188 cm (6' 2 ) 11/30/2009 4:53 PM CDT Body Mass Index 29.53 11/30/2009 4:53 PM CDT documented in this encounter Discharge Instructions * Discharge Instructions* Yuridia Ugalde PA - 11/30/2009 6:41 PM CDT Anxiety and Panic Attacks Your [...] help. Document Released: 08/30/2006 Document Re-Released: 09/18/2008 Rest Devices?? Patient Information ??2009 [employer].Abdominal Pain, Extended Version Belly Pain, Stomach Pain Your exam may not have shown the exact reason you have abdominal pain. Since there are many different causes of abdominal pain, another checkup and more tests may be needed. One of the many possible causes of abdominal pain in any person who has not had their appendix removed is Acute Appendicitis.Appendicitis is often very difficult to diagnosis. Normal blood tests, urine tests, and even ultrasound can not ensure there is not early appendicitis. Sometimes only the changes which occur over time will allow appendicitis and other causes of abdominal pain to be determined. Because of this, it is important you follow all of the instructions below. Home care instructions ?? Rest. Do not eat solid food until your pain is gone. While you have pain: Stay on a clear liquid diet. A clear liquid is one you can see through (water,weak tea, broth or bouillon, adrian mikayla, Jell-o, Gaston-Aid, Gatorade, apple juice, popsicles or ice chips). When your pain is gone: Start a light diet (dry toast, crackers, applesauce, white rice, bananas, broth or bouillon) and increase the diet slowly, as long as it does not bother you. No dairy products(including cheese and eggs) and no spicy, fatty, fried or high fiber foods. No alcohol, caffeine or cigarettes. Take your regular medicines unless your caregiver told you not to. Take any prescribed medicine as directed. Do not take medicine containing aspirin, ibuprofen (Advil?? / Motrin?? ), naprosyn/naproxen (Aleve??) or ketoprofen (Orudis?? ) unless told to by your caregiver. seek immediate medical attention if : ?? Your pain is not gone in 24 hours. Your pain becomes worse, changes location, or feels different. You have a fever or shaking chills. You keep throwing up or can not drink liquids. You see blood when you throw up or see blood in your bowel movements. Your bowel movements become dark or black. You move your bowels frequently. Your bowel movements stop (become blocked) or you can not pass gas. You have bloody, frequent, or painful urination. Your skin or the whites of your eyes look yellow. Your stomach becomes bloated or bigger. You notice bleeding or discharge from your vagina. You have dizziness or fainting. You have chest or back pain. There is anything else that worries you. If you have questions or concerns, please call your caregiver. Adapted from ??2001 [employer] Aftercare Instruction Sheets Document Released: 08/30/2006 Document Re-Released: 02/21/2007 ExitCare?? Patient Information ??2007 [employer]. * Discharge Instructions* Document, Scanned - 11/30/2009 12:00 AM CDT documented in this encounter [...] as of this encounter ED Notes * Adin Gomez RN - 11/30/2009 5:18 PM CDT States unable to see primary physician for xanax refill. States has been out of pain meds since and has been feeling anxious * Yuridia Ugalde PA - 11/30/2009 5:17 PM CDT 11/30/2009 5:17 PM History Chief Complaint Patient presents with ??? Anxiety pt reports is out of xanax x 3 days ago , and also c/o of epigastric pain at this time and urinating freq since yesterday ??? Nausea pt also reports nausea since yesterday HPI Comments: Pt also requests med refill for xanex. States he was seen last week at another [facility] facility for same- had a scheduled follow-up with new psychiatrist- dr. Snyder but that doctor calledhim to cancel his appointment. Pt is rescheduled for this upcoming Wednesday. Also concerned that he is experiencing urinary frequency and was told at last ER that he did not have a UTI but would like it re-checked. Pt admits to increased water intake. Pt also requests a screen for diabetes as manyfamily members have diabetes and he is concerned about the frequency. Pt also would like nexium in addition to his carafate. Denies vomiting, diarrhea, bloody stools, fever. Pain Abdominal The history is provided by the patient. This is a recurrent problem. The current episode started more than 1 week ago. The problem has been occurring intermittent. The problem has been unchanged since onset. The pain is associated with eating. The pain is located in the epigastric region. The quality of the pain is cramping and sharp. The pain is moderate. Radiates to: nonradiating. Associated symptoms include nausea and frequency (admits to increase water intake, 12 glasses today). Pertinent negatives include no anorexia, no fever, no belching, no diarrhea, no flatus, no hematochezia, no melena, no vomiting, no constipation, no dysuria, no hematuria, no headaches, no arthralgias and no myal gias. The pain is made worse by eating. The pain is relieved by nothing. Past workup includes CT scan.Medical History: diverticulitis, treated with abx as recently as 1 week ago. states diarrhea has resolved. states pain primarily epigastric in nature with rare llq discomfort- overall greatly improved s/p cipro andflagyl which she finished 1 week ago. Past Medical History Diagnosis Date ??? DEPRESSION [...] outpatient prescriptions Medication Sig Dispense Refill ??? esomeprazole (NEXIUM) 20 MG capsule Take 1 Cap by mouth daily before breakfast. 30 0 ??? esomeprazole (NEXIUM) 20 MG capsule [...] PRILOSEC PO Take by mouth as needed Review of Systems Constitutional: Negative for fever. HENT: Negative for headaches. Gastrointestinal: Positive for nausea and abdominal pain. Negative for vomiting, diarrhea, constipation and melena. Genitourinary: Positive for frequency (admits to increase water intake, 12 glasses today). Negativefor dysuria and hematuria. Musculoskeletal: Negative for myalgias. BP 135/90 Pulse 86 Temp 97.8 ??F Resp 18 Wt 230 lb (104.327 kg) Physical Exam Nursing note and vitals reviewed. Constitutional: He is oriented and well-developed, well-nourished, and in no distress. He appears not diaphoretic. No distress. HENT: Head: Normocephalic and atraumatic. Right Ear: External ear normal. Left Ear: External ear normal. Nose: Nose normal. Mouth/Throat: Oropharynx is clear and moist. No oropharyngeal exudate. Eyes: Conjunctivae and extraocular motions are normal. Pupils are equal, round, and reactive to light. Right eye exhibits no discharge. Left eye exhibits no discharge. Neck: Normal range of motion. Neck supple. Cardiovascular: Normal rate, regular rhythm, normal heart sounds and intact distal pulses. Pulmonary/Chest: Effort normal and breath sounds normal. No respiratory distress. He has no wheezes. He has no rales. He exhibits no tenderness. Abdominal: Bowel sounds are normal. He exhibits no distension and no mass. Soft. Tenderness (epigastric region.) is present. He has no rebound and no guarding. Musculoskeletal: Normal range of motion. He exhibits no edema and no tenderness. Neurological: He is alert and oriented. GCS score is 15. Skin: Skin is warm and dry. He is not diaphoretic. Psychiatric: Mood, memory, affect and judgment normal. EKG Interpretation Lab/SPO2 Interpretation Medical Decision Making Progress Notes Reviewed pt's most recent [facility] visit. The ER Md at that site did call both scottie and travis verduzconoelle investigate for benzo seeking behavior- did not find a suspicous profile and prescribed refill. Educated pt not to use ER for med refills for controlled substances specifically. Pt very forthcoming about recent ER visit and stated almost verbatim to this provider what he did to previous MD. Pt anxious and requests a CT and blood work. Gently explained that diverticulitis sx have resolvedfollowing treatment and Ct not clinically indicated for that or epigastric pain but rather endoscopy with gi f/u. Procedures ED Plan/Course: Diagnosis Encounter Diagnoses Name Primary? ANXIETY ??? Abdominal Pain, Epigastric documented in this encounter Miscellaneous Notes * Miscellaneous Scans - Document, Scanned - 11/30/2009 12:00 AM CDT documented in this encounter Plan of Treatment Not on file documented as of this encounter Procedures Procedure Name Priority Date/Time Associated Diagnosis Comments GLUCOSE - POINT OF CARE Routine 11/30/2009 6:32 PM CDT DRUG SCREEN URINE ABUSE INHOUSE STAT 11/30/2009 5:43 PM CDT URINALYSIS REFLEX TO MICROSCOPIC NO CULTURE STAT 11/30/2009 5:43 PM CDT documented in this encounter Results * GLUCOSE - POINT OF CARE (11/30/2009 6:32 PM CDT) Glucose WB/POC 84 75 - 110 mg/dl [facility] BLOOD SPECIMEN / Unknown 11/30/2009 6:32 PM CDT 12/01/2009 8:38 AM CDT Dp Generic Ed Physician LAB - POINT OF CARE ORDERABLES Performing Organization Address [facility] de Phone Number [facility] [address] [place] [address] * (ABNORMAL) DRUG SCREEN URINE ABUSE INHOUSE (11/30/2009 5:43 PM CDT) Amphetamines Screen Urine Negative Negative [facility] Barbiturates Screen Urine Negative Negative [facility] Benzodiazepines Screen Urine Positive(A) Negative [facility] Cocaine Screen Urine Negative Negative [facility] Cannabinoids Screen Urine Negative Negative [facility] Opiate Screen Urine Negative Negative [facility] Phencyclidine Screen Urine Negative Negative [facility] Methadone Screen Urine Negative Negative [facility] Legal Disclaimer Urine [facility] Comment: This drug screen is designed [...] [facility] - URINE CHEMISTR Y ORDERABLES Performing Organization Address [facility] Co de Phone Number [facility] [address] [place] [address] * URINALYSIS ROUTINE AUTO (11/30/2009 5:43 PM CDT) Color UA YELLOW [facility] Character UA CLEAR [facility] Specific Athena UA 1.011 1.005 - 1.0300 [facility] pH UA 7.0 4.6 - 8.0 pH Units [facility] Leukocyte UA NEGATIVE Negative /ul [facility] Nitrite UA NEGATIVE Negative [facility] Protein UA NEGATIVE Negative mg/dl [facility] Glucose UA NEGATIVE Normal mg/dl [facility] Ketone UA NEGATIVE Negative mg/dl [facility] Urobilinogen UA 1.0 Normal Becki Units [facility] Bilirubin UA NEGATIVE Negative mg/dl [facility] Blood UA NEGATIVE Negative /ul [facility] WBC UA <5 /HPF [facility] RBC UA <5 /HPF [facility] Epithelial Cell UA <5 /HPF [facility] Casts UA <2 /LPF [facility] Bacteria UA NEGATIVE [facility] URINE SPECIMEN OBTAINED BY CLEAN CATCH PROCEDURE / Unknown 11/30/2009 5:43 PM CDT 11/30/2009 5:43 PM CDT Yuridia [facility] - URINALYSIS ORD ERABLES [facility] [address] [place] [address] documented in this encounter Visit Diagnoses Diagnosis Anxiety Anxiety state, unspecified Abdominal pain, epigastric documented in this encounter Care Teams Vehicle Upholsterer Relationship Specialty Start Date End Date Nopcp, Patient PCP - General 11/23/09 01/02/10 documented as of this encounter
--- OUTSIDE RECORDS SUMMARY | 2024-09-10 03:45 | XMS_ITS | Encounter Summary ---
Author Organization [facility] Address [address] [place] [address] Care Team Providers Care Ssrs Developer Name Role Phone Alcon Munoz MD Primary Care Provider [phone] Reason for Referral * Evaluate & Treat - Closed Specialty Diagnoses / Procedures Referred By Redd mobley Referred To Contact Diagnoses [place] [address] [place] [address] Devan Mcclain MD [facility] [address] [address] Referral ID Status Reason Start Date Expiration Date V isits Requested Visits Authorized [id number] Closed Specialty Services Required 08/08/2012 02/04/2013 6 6 [facility] Encounter Details Date Type Department Care Team (Late st Contact Info) Description 08/08/2012 Orders Only [facility] - Family Medicine [address] [place] [id number] [place] [address] [place] [address] Epigastric abdominal pain Social History Tobacco Use Types Packs/Day Years Used Date Smoking Tobacco: Former Smokeless Tobacco: Never Alcohol Use Standard Drinks/Week Comments No 0 (1 standard drink = 0.6 oz pur e alcohol) Sex and Gender Information Value Date Recorded Sex Assigned at Not on file Gender Identity Not on file Sexual Orientation Not on file documented as of this encounter Progress Notes * Alcon Munoz MD - 08/08/2012 11:39 AM CST Exchange call over the weekend. Patient c/o persistent rib pain and now epigastric pain which he states is burning in character and worsened by eating. Not responding to protonix and carafate. He hasbeen alternating vicodin and Ibuprofen for costochondritis for the past month. He is s/p cholecystectomy remotely. Explained to patient that he would likely need upper GI endoscopy. Refer to GI. [facility] documented in this encounter Plan of Treatment Scheduled Referrals Name Type Priority Associated Diagnoses Order Schedule AMB REFERRAL TO GASTROENTEROLOGY Outpatient Referral Routine Epigastric abdominal pain Ordered: 08/08/2012 documented as of this encounter Visit Diagnoses Diagnosis Epigastric abdominal pain- Primary Abdominal pain, epigastric documented in this encounter Care Teams Ssrs Developer Relationship Specialty Start Date End Date Alcon Munoz MD PCP - General Family Medicine 07/05/12 02/01/13 documented as of this encounter
--- OUTSIDE RECORDS SUMMARY | 2024-09-10 03:45 | XMS_ITS | Encounter Summary ---
Author Organization [facility] Address [address] [place] [address] Care Team Providers Care Director Corporate Sales Name Role Phone Nopcp, Patient Primary Care Provider Unavailabl e Encounter Details Date Type Department Care Team (Late st Contact Info) Description 01/04/2010 3:39 PM CDT - 01/04/2010 11:59 PM CDT Emergency ER at [address] [address] Discharge Disposition: Home or Self Care Social History Tobacco Use Types Packs/Day Years Used Date Smoking Tobacco: Former Alcohol Use Standard Drinks/Week Comments No 0 (1 standard drink = 0.6 oz pur e alcohol) Sex and Gender Information Value Date Recorded Sex Assigned at Not on file Gender Identity Not on file Sexual Orientation Not on file documented as of this encounter Discharge Instructions * Discharge Instructions* Peyton Lim RN - 01/08/2010 5:41 PM CDT documented in this encounter Medications [...] as of this encounter ED Notes * Kandi Stanley RN - 01/04/2010 3:50 PM CDT Pt. Presents to triage C/O I'm having a panic attack , Pt. Reminded by this R.N. That he was seen@ [facility] yesterday for same where he received prescription for Xanax 0.25 mg. Pt . States he did not bother filling prescription because the dose was too low, He really needs Xanax 2 mg. Pt then a sked about the xanax prescription he received from [facility] ED 3-4 days ago. Pt out of triage chair, stating he thinks he better leave. Pt reported as left without treatment. documented in this encounter Miscellaneous Notes * Miscellaneous Scans - Document, Scanned - 01/04/2010 12:00 AM CDT documented in this encounter Plan of Treatment Not on file documented as of this encounter Visit Diagnoses Not on filedocumented in this encounter Care Teams Director Corporate Sales Relationship Specialty Start Date End Date Nopcp, Patient PCP - General 01/03/10 07/04/12 documented as of this encounter
--- OUTSIDE RECORDS SUMMARY | 2024-09-10 03:45 | XMS_ITS | Encounter Summary ---
Author Organization [facility] Address [address] [place] [address] Care Team Providers Care Line Construction Supervisor Name Role Phone Unavailable Primary Care Provider Unavailabl e Encounter Details Date Type Department Care Team (Latest Contact Info) Description 10/20/2019 2:30 PM DEALER ACCOUNT MANAGER - 10/20/2019 2:56 PM [facility] Hospital Encounter [facility] [address] [place] [id number] Radha Palafox, CATERING SERVER-ATM TECHNICIAN [address] [facility] [address] [facility] [place] [place] [phone] Discharge Disposition: Home or Self Care Social [...] fluticasone propionate (FLONASE) 50 MCG/ACT nasal spray [place] 2 sprays into each nostril once daily 15.8 g 11 08/01/2019 hyoscyamine 0.125 MG tabletIndications:Acute diverticulitis Take 1 tablet by mouth every 4 hours as needed for Spasms 30 tablet 09/30/2019 simethicone (GAS-X) 80 MG chew tablet Take [...] Procedure Name Priority Date/Time Associated Diagnosis Comments HEPATITIS C AB W RFLX VERIFICATION Routine 10/20/2019 2:41 PM DEALER ACCOUNT MANAGER Type 2 diabetes mellitus without complication, without long-term current use of insulin (HCC) Need for hepatitis C screening test HCV COMMENT Routine 10/20/2019 2:41 PM DEALER ACCOUNT MANAGER Type 2 diabetes mellitus without complication, without long-term current use of insulin (HCC) Need for hepatitis C screening test MICROALB/CREAT RATIO URINE RANDOM PANEL Routine 10/20/2019 2:41 PM DEALER ACCOUNT MANAGER Type 2 diabetes mellitus without complication, without long-term current use of insulin (HCC) URINALYSIS REFLEX TO MICROSCOPIC NO CULTURE Routine 10/20/2019 2:41 PM DEALER ACCOUNT MANAGER Type 2 diabetes mellitus without complication, without long-term current use of insulin (HCC) CBC W AUTO DIFFERENTIAL Routine 10/20/2019 2:41 PM DEALER ACCOUNT MANAGER Type 2 diabetes mellitus without complication, without long-term current use of insulin (HCC) Obesity with serious comorbidity, unspecified classification, unspecified obesity type COMPREHENSIVE METABOLIC PANEL Routine 10/20/2019 2:41 PM DEALER ACCOUNT MANAGER Type 2 diabetes mellitus without complication, without long-term current use of insulin (HCC) Obesity with serious comorbidity, unspecified classification, unspecified obesity type TSH Routine 10/20/2019 2:41 PM DEALER ACCOUNT MANAGER Type 2 diabetes mellitus without complication, without long-term current use of insulin (HCC) Depression, unspecified depression type Panic attacks Obesity with serious comorbidity, unspecified classification, unspecified obesity type LIPID PROFILE Routine 10/20/2019 2:41 PM DEALER ACCOUNT MANAGER Type 2 diabetes mellitus without complication, without long-term current use of insulin (HCC) Obesity with serious comorbidity, unspecified classification, unspecified obesity type documented in this encounter Results * HCV COMMENT (10/20/2019 2:41 PM DEALER ACCOUNT MANAGER) Comment Comment 10/21/2019 8:18 AM DEALER ACCOUNT MANAGER [facility] ([facility]) Comment: Non reactive HCV antibody screen is consistent with no HCV infection, unless recent infection is suspected or other evidence exists to indicate HCV infection. Blood BLOOD SPECIMEN / Unknown Lab Venipuncture / Unknown 10/20/2019 2:41 PM DEALER ACCOUNT MANAGER 10/20/2019 3:01 PM DEALER ACCOUNT MANAGER Narrative [facility] ([facility]) - 10/21/2019 8:18 AM DEALER ACCOUNT MANAGER Performed at: ??01 - [facility] [place] [id number] [place], [place] ??[id number] Nurse Practical: Carlos Woods PhD, Phone: ??[phone] Radha Palafox CATERING SERVER-ATM TECHNICIAN LAB - CHEMI STRY ORDERABLES [facility] ([facility]) [address] [place] [address], [facility] * (ABNORMAL) COMPREHENSIVE METABOLIC PANEL (10/20/2019 2:41 PM DEALER ACCOUNT MANAGER) BUN 11 7 - 26 mg/dL 10/20/2019 3:33 PM [facility] Creatinine 0.9 0.6 - 1.2 mg/dL 10/20/2019 3:33 PM DEALER ACCOUNT MANAGER [facility] Sodium 142 136 - 145 mmol/L 10/20/2019 3:33 PM [facility] Potassium 3.3(L) 3.5 - 4.5 mmol/L 10/20/2019 3:33 PM [facility] Chloride 104 98 - 107 mmol/L 10/20/2019 3:33 PM [facility] CO2 25 22 - 29 mmol/L 10/20/2019 3:33 PM [facility] Glucose 96 70 - 115 mg/dL 10/20/2019 3:33 PM [facility] Calcium 9.5 8.4 - 10.2 mg/dL 10/20/2019 3:33 PM [facility] Protein Total 8.2 6.0 - 8.3 g/dL 10/20/2019 3:33 PM [facility] Albumin 4.2 3.4 - 5.0 g/dL 10/20/2019 3:33 PM [facility] Bilirubin Total 1.7(H) 0.2 - 1.2 mg/dL 10/20/2019 3:33 PM [facility] Alkaline Phosphatase 75 40 - 150 Units/L 10/20/2019 3:33 PM [facility] ALT 60(H) 0 - 55 Units/L 10/20/2019 3:33 PM [facility] AST 63(H) 5 - 34 Units/L 10/20/2019 3:33 PM [facility] Anion Gap 16 8 - 18 10/20/2019 3:33 PM [facility] BUN/Creatinine Ratio 12 7 - 23 10/20/2019 3:33 PM [facility] Osmolality Calculated 293 270 - 300 mOsm/kg 10/20/2019 3:33 PM [facility] Albumin/Globulin Ratio 1.1 1.1 - 2.3 10/20/2019 3:33 PM [facility] eGFR >60 >60 mL/min/1.7 3 m2 10/20/2019 3:33 PM [facility] Blood BLOOD SPECIMEN / Unknown Lab Venipuncture / Unknown 10/20/2019 2:41 PM DEALER ACCOUNT MANAGER 10/20/2019 3:01 PM DEALER ACCOUNT MANAGER Radha Palafox CATERING SERVER-ATM TECHNICIAN LAB - CHEMI STRY ORDERABLES [address] [phone] * TSH (10/20/2019 2:41 PM DEALER ACCOUNT MANAGER) TSH 1.644 0.350 - 4.940 uIU/mL 10/20/2019 3:53 PM [facility] Blood BLOOD SPECIMEN / Unknown Lab Venipuncture / Unknown 10/20/2019 2:41 PM DEALER ACCOUNT MANAGER 10/20/2019 3:01 PM DEALER ACCOUNT MANAGER Radha Palafox CATERING SERVER-ATM TECHNICIAN LAB - CHEMI STRY ORDERABLES [address] [phone] * URINALYSIS REFLEX TO MICROSCOPIC NO CULTURE (10/20/2019 2:41 PM DEALER ACCOUNT MANAGER) Color UA Yellow Straw, Yellow, Colorless 10/20/2019 3:28 PM [facility] Clarity UA Clear Clear, Slt Cloudy 10/20/2019 3:28 PM [facility] Specific [place] UA 1.015 1.005 - 1.030 10/20/2019 3:28 PM [facility] pH UA 6.0 5.0 - 8.0 pH 10/20/2019 3:28 PM [facility] Protein UA Negative Negative mg/dL 10/20/2019 3:28 PM [facility] Glucose UA Negative Negative mg/dL 10/20/2019 3:28 PM [facility] Ketone UA Negative Negative mg/dL 10/20/2019 3:28 PM [facility] Bilirubin UA Negative Negative mg/dL 10/20/2019 3:28 PM [facility] Blood UA Negative Negative 10/20/2019 3:28 PM [facility] Nitrite UA Negative Negative 10/20/2019 3:28 PM [facility] Leukocyte Esterase Negative Negative 10/20/2019 3:28 PM [facility] Urobilinogen UA Negative Negative mg/dL 10/20/2019 3:28 PM [facility] RBC UA 0-2 None Seen, 0-2, 3-5 /HPF 10/20/2019 3:28 PM [facility] WBC UA 0-5 None Seen, 0-5 /HPF 10/20/2019 3:28 PM [facility] Squamous Epithelial Cells UA None Seen None Seen, 0-2 /HPF 10/20/2019 3:28 PM [facility] Mucus UA 1+ None, 1+ /LPF 10/20/2019 3:28 PM [facility] Urine URINE SPECIMEN OBTAINED BY CLEAN CATCH PROCEDURE / Unknown Collection / Unknown 10/20/2019 2:41 PM DEALER ACCOUNT MANAGER 10/20/2019 3:01 PM DEALER ACCOUNT MANAGER Narrative [facility] - 10/20/2019 3:28 PM DEALER ACCOUNT MANAGER Radha Palafox [facility] - URINA LYSIS ORDERABLES Performing Organization Address [facility]/ZIP Co de Phone Number [address] [phone] * (ABNORMAL) MICROALB/CREAT RATIO URINE RANDOM PANEL (10/20/2019 2:41 PM DEALER ACCOUNT MANAGER) Albumin Random Urine 65.0 Not Established mcg/mL 10/20/2019 4:57 PM [facility] Creatinine Urine 143 Not Established mg/dL 10/20/2019 4:57 PM [facility] Comment: Result obtained by dilution. Urine Albumin/Creati nine Ratio 45(H) <30 mg/g 10/20/2019 4:57 PM [facility] Urine URINE SPECIMEN OBTAINED BY CLEAN CATCH PROCEDURE / Unknown Collection / Unknown 10/20/2019 2:41 PM DEALER ACCOUNT MANAGER 10/20/2019 3:01 PM DEALER ACCOUNT MANAGER Radha Palafox [facility] - URINE CHEMISTRY ORDERABLES Performing Organization Address [facility]/ZIP Co de Phone Number [address] [phone] * (ABNORMAL) LIPID PROFILE (10/20/2019 2:41 PM DEALER ACCOUNT MANAGER) Cholesterol Total 173 <200 mg/dL 10/20/2019 3:33 PM [facility] HDL 21(L) >40 mg/dL 10/20/2019 3:33 PM [facility] Comment: ATP III Classification of HDL Cholesterol: ? <40 mg/dL: ??Considered a major risk factor. ? >60 mg/dL: ??Considered a negative risk factor. ? LDL Calculated 104(H) <100 mg/dL 10/20/2019 3:33 PM [facility] Comment: ATP III Classification of LDL Cholesterol: ?<100 mg/dL: ??Optimal ? 100 - 129 mg/dL: ??Near Optimal/Above Optimal ? 130 - 159 mg/dL: ??Borderline High ? 160 - 189 mg/dL: ??High ?>190 mg/dL: ??Very High ? Triglycerides 240(H) <150 mg/dL 10/20/2019 3:33 PM [facility] Comment: ATP III Classification of Triglycerides: ?<150 mg/dL: ??Normal ? 150 - 199 mg/dL: ??Borderline High ? 200 - 400 mg/dL: ??High ?>500 mg/dL: ??Very High Blood BLOOD SPECIMEN / Unknown Lab Venipuncture / Unknown 10/20/2019 2:41 PM DEALER ACCOUNT MANAGER 10/20/2019 3:01 PM DEALER ACCOUNT MANAGER Radha Palafox CATERING SERVER-ATM TECHNICIAN LAB - CHEMI STRY ORDERABLES Performing Organization Address [facility]/State/[place] [address], [facility] [phone] * HEPATITIS C AB W RFLX VERIFICATION (10/20/2019 2:41 PM DEALER ACCOUNT MANAGER) Hepatitis C Antibody <0.1 0.0 - 0.9 s/co ratio 10/21/2019 8:18 AM DEALER ACCOUNT MANAGER [facility] ([facility]) Blood BLOOD SPECIMEN / Unknown Lab Venipuncture / Unknown 10/20/2019 2:41 PM DEALER ACCOUNT MANAGER 10/20/2019 3:01 PM DEALER ACCOUNT MANAGER Narrative [facility] ([facility]) - 10/21/2019 8:18 AM DEALER ACCOUNT MANAGER Performed at: ??01 - [facility] [place] [address] [place], [place] ??[id number] Nurse Practical: Carlos Woods PhD, Phone: ??[phone] Radha Palafox CATERING SERVER-ATM TECHNICIAN LAB - CHEMI STRY ORDERABLES [facility]) [address] [place] [address], [facility] * (ABNORMAL) CBC WITH DIFFERENTIAL (10/20/2019 2:41 PM DEALER ACCOUNT MANAGER) WBC 7.1 3.5 - 10.5 10? 3 /uL 10/20/2019 3:06 PM [facility] RBC 5.94(H) 4.30 - 5.70 10? 6 /uL 10/20/2019 3:06 PM [facility] Hemoglobin 14.4 13.5 - 17.5 g/dL 10/20/2019 3:06 PM [facility] Hematocrit 44.7 39.0 - 50.0 % 10/20/2019 3:06 PM [facility] MCV 75.3(L) 81.0 - 97.0 fL 10/20/2019 3:06 PM [facility] MCH 24.2(L) 28.0 - 34.0 pg 10/20/2019 3:06 PM [facility] MCHC 32.2 32.0 - 36.0 g/dL 10/20/2019 3:06 PM [facility] Platelet Count 196 150 - 400 10? 3 /uL 10/20/2019 3:06 PM [facility] RDW-SD 39.6 36.0 - 50.0 fL 10/20/2019 3:06 PM [facility] RDW-CV 14.6 11.2 - 14.8 % 10/20/2019 3:06 PM [facility] MPV 9.4 9.3 - 12.8 fL 10/20/2019 3:06 PM [facility] nRBC Absolute 0.00 0 10? 3 /uL 10/20/2019 3:06 PM [facility] nRBC Auto 0.0 0 /100 WBC 10/20/2019 3:06 PM [facility] Neutrophils % 63.6 35.0 - 70.0 % 10/20/2019 3:06 PM [facility] Lymphocytes % 25.4 19.7 - 55.1 % 10/20/2019 3:06 PM [facility] Monocytes % 7.6 3.0 - 15.0 % 10/20/2019 3:06 PM [facility] Eosinophils % 2.7 0.0 - 6.0 % 10/20/2019 3:06 PM [facility] Basophil % 0.6 0.0 - 1.5 % 10/20/2019 3:06 PM [facility] Neutrophils Absolute 4.5 1.6 - 7.0 10? 3 /uL 10/20/2019 3:06 PM [facility] Lymphocyte Absolute 1.8 0.8 - 2.9 10? 3 /uL 10/20/2019 3:06 PM [facility] Monocytes Absolute 0.54 0.14 - 0.66 10? 3 /uL 10/20/2019 3:06 PM [facility] Eosinophils Absolute 0.19 0.00 - 0.45 10? 3 /uL 10/20/2019 3:06 PM [facility] Basophils Absolute 0.04 0.00 - 0.06 10? 3 /uL 10/20/2019 3:06 PM [facility] Immature Granulocytes % 0.1 0.0 - 1.0 % 10/20/2019 3:06 PM [facility] Blood BLOOD SPECIMEN / Unknown Lab Venipuncture / Unknown 10/20/2019 2:41 PM DEALER ACCOUNT MANAGER 10/20/2019 3:01 PM DEALER ACCOUNT MANAGER Radha Palafox CATERING SERVER-ATM TECHNICIAN LAB - HEMAT OLOGY ORDERABLES [facility] [address] [phone] documented in this encounter Visit Diagnoses Diagnosis Type 2 diabetes mellitus without complication, without long-term current use of insulin (HCC) Obesity with serious comorbidity, unspecified classification, unspecified obesity type Need for hepatitis C screening test Special screening examination for other specified viral diseases Depression, unspecified depression type Panic attacks Panic disorder without agoraphobia documented in this encounter
--- OUTSIDE RECORDS SUMMARY | 2024-09-10 03:45 | XMS_ITS | Encounter Summary ---
Author Organization [facility] Address [address] [place] [address] Care Team Providers Care Director Corporate Name Role Phone Alcon Munoz MD Primary Care Provider [phone] Reason for Visit * Reason Onset Date Comments Update 07/20/2012 Encounter Details Date Type Department Care Team ([facility] st Contact Info) Description 07/20/2012 Telephone [facility] - Family Medicine [address] [place] [phone] [place] [id number] [place] [address] Update Social History Tobacco Use [...] Encounter - Alcon Munoz MD - 07/20/2012 3:54 PM CST Done TING WORKER * Telephone Encounter - Arely Loya - 07/20/2012 2:52 PM CST Patient called and the [facility] the sleep study place [facility] [place], [place]. If you could put in an order then I can fax to [phone]. TING WORKER documented in this encounter Plan of Treatment Scheduled Orders Name Type Priority Associated Diagnoses Orde r Schedule POLYSOMNOGRAM WITH CPAP IF INDICATED Sleep Center Routine Fatigue Daytime somnolence Panic attack Headache Ordered: 07/20/2012 documented as of this encounter Visit Diagnoses Diagnosis Fatigue- Primary Other malaise and fatigue Daytime somnolence Hypersomnia, unspecified Panic attack Panic disorder without agoraphobia Headache(784.0) Headache documented in this encounter Care Teams Director Corporate Relationship Specialty Start Date End Date Alcon Munoz MD PCP - General Family Medicine 07/05/12 02/01/13 documented as of this encounter
--- OUTSIDE RECORDS SUMMARY | 2024-09-10 03:45 | XMS_ITS | Encounter Summary ---
Author Organization [facility] Address [address] [place] [address] Care Team Providers Care Wig Dresser Name Role Phone Jessica Waters MD Primary Care Provider Reason for Visit * Reason Comments Lethargy pt with c/o having n o energy x1 week, sleeping 16 hours a day, dizziness. * Auth/Cert - Closed Specialty Diagnoses / Procedures Referred By Contac t Referred To Contact Emergency Room [facility] Emergency Dept [address] [place] [id number] Referral ID Status Reason Start Date Expiration Date Visits Re quested Visits Authorized [id number] Closed 07/30/2015 01/26/2016 1 Encounter Details Date Type Department Care Team (Late st Contact Info) Description 07/29/2015 10:08 PM CHANGE CONSULTANT - 07/30/2015 3:14 AM CHANGE CONSULTANT Emergency ER at [facility] [address] [place] [id number] Emani Chaudhari MD [address] [facility] [place] [address] Weakness; Abdominal pain, left lower quadrant; Sigmoid diverticulitis; Upper respiratory tract infection, unspecified upper respiratory infection Discharge Disposition: Home or Self Care Social [...] Sign Reading Time Taken Comments Blood Pressure 146/85 07/30/2015 3:11 AM CHANGE CONSULTANT Pulse 80 07/30/2015 3:11 AM CHANGE CONSULTANT Temperature 36.6 ??C (97.9 ??F) 07/30/2015 3:11 AM CS T Respiratory Rate 18 07/30/2015 3:11 AM CHANGE CONSULTANT Oxygen Saturation 99% 07/30/2015 3:11 AM CHANGE CONSULTANT Inhaled Oxygen Concentration - - Weight 111.1 kg (245 lb) 07/29/2015 9:05 PM CHANGE CONSULTANT Height 188 cm (6' 2.02 ) 07/29/2015 9:05 PM CHANGE CONSULTANT Body Mass Index 31.44 07/29/2015 9:05 PM CHANGE CONSULTANT documented in this encounter Discharge Instructions * Discharge Instructions* Emani Chaudhari MD - 07/30/2015 3:04 AM CHANGE CONSULTANT Images from the original note were not included. Diverticulitis Diverticulitis is when small pockets that have formed in your colon (large intestine) become infected or swollen. HOME CARE ?? Follow your doctor's instructions. ?? Follow a special diet if told by your doctor. ?? When you feel better, your doctor may tell you to change your diet. You may be told to eat a lotof fiber. Fruits and vegetables are good sources of fiber. Fiber makes it easier to poop (have bowel movements). ?? Take supplements or probiotics as told by your doctor. ?? Only take medicines as told by your doctor. ?? Keep all follow-up visits with your doctor. GET HELP IF: ?? Your pain does not get better. ?? You have a hard time eating food. ?? You are not pooping like normal. GET HELP RIGHT AWAY IF: ?? Your pain gets worse. ?? Your problems do not get better. ?? Your problems suddenly get worse. ?? You have a fever. ?? You keep throwing up (vomiting). ?? You have bloody or black, tarry poop (stool). MAKE SURE YOU: ?? Understand these instructions. ?? Will watch your condition. ?? Will get help right away if you are not doing well or get worse. Document Released: 02/15/2009 Document Revised: 09/04/2014 Document Reviewed: 07/25/2014 ExitCare?? Patient Information ??2015 [employer]. This information is not intended to replace advice given to you by your health care provider. Make sure you discuss any questions you have with your health care provider. Fatigue Fatigue is a feeling of tiredness, lack of energy, lack of motivation, or feeling tired all the time. Having enough rest, good nutrition, and reducing stress will normally reduce fatigue. Consult your caregiver if it persists. The nature of your fatigue will help your caregiver to find out its cause. The treatment is based on the cause. CAUSES There are many causes for fatigue. Most of the time, fatigue can be traced to one or more of your habits or routines. Most causes fit into one or more of three general areas. They are: Lifestyle problems ?? Sleep disturbances. ?? Overwork. ?? Physical exertion. ?? Unhealthy habits. ?? Poor eating habits or eating disorders. ?? Alcohol and/or drug use . ?? Lack of proper nutrition (malnutrition). Psychological problems ?? Stress and/or anxiety problems. ?? Depression. ?? Grief. ?? Boredom. Medical Problems or Conditions ?? Anemia. ?? . ?? Thyroid gland problems. ?? Recovery from major surgery. ?? Continuous pain. ?? Emphysema or asthma that is not well controlled ?? Allergic conditions. ?? Diabetes. ?? Infections (such as mononucleosis). ?? Obesity. ?? Sleep disorders, such as sleep apnea. ?? Heart failure or other heart-related problems. ?? Cancer. ?? Kidney disease. ?? Liver disease. ?? Effects of certain medicines such as antihistamines, cough and cold remedies, prescription pain medicines, heart and blood pressure medicines, drugs used for treatment of cancer, and some antidepressants. SYMPTOMS The symptoms of fatigue include: ?? Lack of energy. ?? Lack of drive (motivation). ?? Drowsiness. ?? Feeling of indifference to the surroundings. DIAGNOSIS The details of how you feel help guide your caregiver in finding out what is causing the fatigue. You will be asked about your present and past health condition. It is important to review all medicines that you take, including prescription and non-prescription items. A thorough exam will be done. You will be questioned about your feelings, habits, and normal lifestyle. Your caregiver may suggest blood tests, urine tests, or other tests to look for common medical causes of fatigue. TREATMENT Fatigue is treated by correcting the underlying cause. For example, if you have continuous pain or depression, treating these causes will improve how you feel. Similarly, adjusting the dose of certain medicines will help in reducing fatigue. HOME CARE INSTRUCTIONS ?? Try to get the required amount of good sleep every night. ?? Eat a healthy and nutritious diet, and drink enough water throughout the day. ?? Practice ways of relaxing (including yoga or meditation). ?? Exercise regularly. ?? Make plans to change situations that cause stress. Act on those plans so that stresses decrease over time. Keep your work and personal routine reasonable. ?? Avoid street drugs and minimize use of alcohol. ?? Start taking a daily multivitamin after consulting your caregiver. SEEK MEDICAL CARE IF: ?? You have persistent tiredness, which cannot be accounted for. ?? You have fever. ?? You have unintentional weight loss. ?? You have headaches. ?? You have disturbed sleep throughout the night. ?? You are feeling sad. ?? You have constipation. ?? You have dry skin. ?? You have gained weight. ?? You are taking any new or different medicines that you suspect are causing fatigue. ?? You are unable to sleep at night. ?? You develop any unusual swelling of your legs or other parts of your body. SEEK IMMEDIATE MEDICAL CARE IF: ?? You are feeling confused. ?? Your vision is blurred. ?? You feel faint or pass out. ?? You develop severe headache. ?? You develop severe abdominal, pelvic, or back pain. ?? You develop chest pain, shortness of breath, or an irregular or fast heartbeat. ?? You are unable to pass a normal amount of urine. ?? You develop abnormal bleeding such as bleeding from the rectum or you vomit blood. ?? You have thoughts about harming yourself or committing suicide. ?? You are worried that you might harm someone else. MAKE SURE YOU: ?? Understand these instructions. ?? Will watch your condition. ?? Will get help right away if you are not doing well or get worse. Document Released: 06/26/2008 Document Revised: 11/21/2012 Document Reviewed: 01/01/2015 ExitCare?? Patient Information ??2015 [employer]. This information is not intended to replace advice given to you by your health care provider. Make sure you discuss any questions you have with your health care provider. Weakness Weakness is a lack of strength. It may be felt all over the body (generalized) or in one specific part of the body (focal). Some causes of weakness can be serious. You may need further medical evaluation, especially if you are elderly or you have a history of immunosuppression (such as chemotherapyor HIV), kidney disease, heart disease, or diabetes. CAUSES Weakness can be caused by many different things, including: ?? Infection. ?? Physical exhaustion. ?? Internal bleeding or other blood loss that results in a lack of red blood cells (anemia). ?? Dehydration. This cause is more common in elderly people. ?? Side effects or electrolyte abnormalities from medicines, such as pain medicines or sedatives. ?? Emotional distress, anxiety, or depression. ?? Circulation problems, especially severe peripheral arterial disease. ?? Heart disease, such as rapid atrial fibrillation, bradycardia, or heart failure. ?? Nervous system disorders, such as Guillain-Merchant?? syndrome, multiple sclerosis, or stroke. DIAGNOSIS To find the cause of your weakness, your caregiver will take your history and perform a physical exam. Lab tests or X-rays may also be ordered, if needed. TREATMENT Treatment of weakness depends on the cause of your symptoms and can vary greatly. HOME CARE INSTRUCTIONS ?? Rest as needed. ?? Eat a well-balanced diet. ?? Try to get some exercise every day. ?? Only take qios-sal-kuevltd or prescription medicines as directed by your caregiver. SEEK MEDICAL CARE IF: ?? Your weakness seems to be getting worse or spreads to other parts of your body. ?? You develop new aches or pains. SEEK IMMEDIATE MEDICAL CARE IF: ?? You cannot perform your normal daily activities, such as getting dressed and feeding yourself. ?? You cannot walk up and down stairs, or you feel exhausted when you do so. ?? You have shortness of breath or chest pain. ?? You have difficulty moving parts of your body. ?? You have weakness in only one area of the body or on only one side of the body. ?? You have a fever. ?? You have trouble speaking or swallowing. ?? You cannot control your bladder or bowel movements. ?? You have black or bloody vomit or stools. MAKE SURE YOU: ?? Understand these instructions. ?? Will watch your condition. ?? Will get help right away if you are not doing well or get worse. Document Released: 08/30/2006 Document Revised: 02/28/2013 Document Reviewed: 10/28/2012 ExitCare?? Patient Information ??2015 [employer]. This information is not intended to replace advice given to you by your health care provider. Make sure you discuss any questions you have with your health care provider. GE CONSULTANT documented in this encounter Medications at Time of Discharge Medication Sig Dispensed Refills Start Date End Date ALPRAZolam (XANAX) 2 MG tablet Take 1 Tab by mouth 2 times daily as needed for Anxiety. 40 Tab 0 07/18/2012 11/09/2019 ciprofloxacin (CIPRO) 500 MG tablet Take 1 Tab by mouth 2 times daily for 7 days 14 Tab 0 07/30/2015 08/06/2015 citalopram (CELEXA) 10 MG tablet Take 10 [...] 10/24/2016 metroNIDAZOLE (FLAGYL) 500 MG tablet Take 1 Tab by mouth 3 times daily for 7 days 21 Tab 0 07/30/2015 08/06/2015 omeprazole (PRILOSEC) 40 MG capsule Take 1 Cap by mouth daily before breakfast. 30 Cap 0 09/11/2013 08/01/2019 ondansetron (ZOFRAN) 4 MG tablet Take 1 Tab by mouth every 4 hours as needed for Nausea/Vomiting 10 Tab 0 07/30/2015 10/24/2016 promethazine (PHENERGAN) 25 MG tablet Take 1 Tab by mouth every 6 hours as needed for Nausea/Vomiting. 10 Tab 0 02/02/2013 10/24/2016 promethazine (PHENERGAN) 25 MG tablet Take 25 mg by mouth as needed. 10/24/2016 documented as of this encounter Progress Notes * Rayne Castellanos R - 07/30/2015 2:06 AM CST CENTRAL INTAKE ASSESSMENT: REASON FOR ASSESSMENT: Carlos Mcgee is a 45 y.o. male who presents to the ED with the initial chief complaint(s) per triage note of: Chief Complaint Patient presents with ??? Lethargy pt with c/o having no energy x1 week, sleeping 16 hours a day, dizziness. The above was entered during triage and not by author of this note. Informants: The patient PRECIPITATING EVENT: The patient is a 45 y.o. male presenting to the Emergency Department via a cab with a complaint of depression. The precipitating event is the pt has medical problems. He reports that he does not knowexactly what is causing his stomach pain and is frustrated by this. The pt reported that his fatherpassed away 2 years ago which he still has not dealt with fully. He reported that he is in the process of selling his home because his father in it and he no longer wants to live there. He reported that he resides in a hotel. The pt adamantly denies SI/HI and s/s of psychosis. RISK TO SELF: (SI, Plan, Intent, Past Attempts, Self-injury, Unsafe Behaviors) The pt adamantly denies SI, plans, intentions, past attempts, SIB and unsafe behaviors. RISK TO OTHERS: (HI, Plan, Intent, Aggressive Ideation or Behaviors, Past History) The patient adamantly denies HI, plans and intentions. No aggressive behaviors noted or observed. SYMPTOMS OF PSYCHOSIS: (Hallucinations, Paranoia, Delusions, Bizarre Behaviors) The patient does not endorse or exhibit any symptoms of acute psychosis. No bizarre behaviors notedor observed. The pt reported that he has been having odd dreams lately. PSYCHIATRIC TREATMENT HISTORY: (Past Admits, Current Providers, Medications, Treatment Compliance, Family History) The patient has had no past admissions. The patient reports that his current provider is NONE. Family history: the pt reported that his mother has a hx of bipolar disorder. The pt reported that his cousin committed suicide. Current Medications List: None. SUBSTANCE ABUSE: (Current Substance Abuse, What Type of Substance Used, When was the last time of use of Substance, How long using the Substance, Past History, Treatment History) Current Substance Abuse: Denies. Past History of Substance Abuse: Denies. Past Substance Abuse Treatment History: Not reported. 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 ADL's: a decrease Appetite: reduced Cognition: Pt denies changes Mood: Depressed Interest/Motivation: reduced Comments: PRESENTATION DURING ASSESSMENT: Mood: labile Affect: Appropriate, is mood congruent Grooming and Hygiene: Well-groomed Eye Contact: Good Speech: normal Behavior: calm and cooperative Orientation: Time, Person, Place, Situation Insight/Judgement: Intact Comments: DISPOSITION: Discussed case with Dr. Knapp (Psychiatrist) who agrees that patient does not meet criteria for inpatient behavioral health services. Discussed case with Dr. Chaudhari (ED Physician) who agrees the patient does not meet inpatient criteria for behavioral health services. Referrals given. Updated Elvi (ED RN) of patient's status and discharge disposition. All verbalized understanding. Provisional Diagnosis: Depression F32.9 Assessment Times: [id number] GE CONSULTANT * Shala Craig - 07/30/2015 12:03 AM CST CI received fax referral from [facility] ED at [phone]. Pt is experiencing depression. Denies SI/HI or psychosis. CI added pt to BHS list and will assess in ED. GE CONSULTANT documented in this encounter ED Notes * Bertha Cesar RN - 07/30/2015 3:11 AM CST Discharge instructions and follow-up reviewed with pt and verbal understanding given. Pt provided with discharge medication prescriptions. PIV removed and pressure dressing applied. D/C VSS. Pt discharge with all belongings. Ambulatory at discharge with steady gait. Pt instructed to follow up with PCP or return to ER with worsening symptoms. GE CONSULTANT * Bertha Cesar RN - 07/30/2015 2:23 AM CST Patient to CT LYN * Elvi Lopez RN - 07/30/2015 1:26 AM CST Pt interview per Behavioral health. LYN * Elvi Lopez RN - 07/30/2015 12:53 AM CST Pt awaits Dr for discussion of concerns regarding labs/xrays and plan of care. Pt sits in a position of comfort, hob elevated Speaks in full sentences, skin is warm and dry. LYN * Elvi Lopez RN - 07/30/2015 12:24 AM CST Pt states he does not understand why he isnt getting a CT scan on his abd to see why he is having pain near his pubic area. States he just finished flagyl yesterday, States he stopped taking it for a few days and started having loose stools again. Asked pt he was having nausea at this time, states yes. Advises it does not make a difference if hetakes his prilosec or other medications or not. Pt inquires about anemia on CBC. States he was told to take iron supplement but has not started them yet. Pt aware of plan for oral K+. Dr Chaudhari aware of pt concerns. . LYN * Elvi Lopez RN - 07/29/2015 10:55 PM CST Pt to xray per tamiko. GE CONSULTANT Emani Davison MD - 07/29/2015 10:49 PM CST Provider contact with the patient: 07/29/2015 22:30 Carlos Mcgee [id number] [facility] EMERGENCY DEPARTMENT History Chief Complaint Patient presents with ??? Lethargy pt with c/o having no energy x1 week, sleeping 16 hours a day, dizziness. HPI Comments: Pt with hx of anxiety, PTSD, depression and NIDDM presents to ER with one week hx of lethargy. Pt states he is sleeping 16 hours / day. He had a fever one week ago but denies chills. Hedoes have sore throat and upper congestion. He denies a fever at this time. He is nauseated but hasbeen pushing oral fluids and food intake. He denies recent travel history, ill contact. He is currently staying in a hotel because he is in the process of moving. He does feel like he is depressed and more anxious than usual but denies suicidal ideation. He was seen at [facility] last Wednesday and stated everything was ok. Dizzy Weak Primary symptoms comment: pt complaining of weakness and lethargy. The primary symptoms include weakness and dizziness.The history is provided by the patient. This is a new problem. The current episode started more than 1 week ago. The time course is gradual.The problem has not changed since onset.Associated symptoms include headaches and nausea.Pertinent negatives include no chest pain, no abdominal pain, no decreased po intake or no syncope.Risk factors do not include fever. Past Medical History Diagnosis Date ??? Depression [...] Systems Review of Systems Constitutional: Positive for fever and malaise/fatigue. Negative for chills. HENT: Positive for congestion. Eyes: Negative. Respiratory: Negative. Negative for cough. Cardiovascular: Negative. Negative for chest pain and palpitations. Gastrointestinal: Positive for nausea and diarrhea. Negative for vomiting, abdominal pain and bloodin stool. Genitourinary: Negative. Negative for dysuria. Musculoskeletal: Positive for neck pain. Left sided neck pain Skin: Negative. Negative for rash. Neurological: Positive for dizziness, weakness and headaches. Negative for tingling, tremors, loss of consciousness and syncope. Endo/Heme/Allergies: Negative. Psychiatric/Behavioral: Negative. All other systems reviewed and are negative. Physical Exam BP 148/86 mmHg Pulse 101 Temp(Src) 98.1 ??F Resp 22 Ht 1.88 m (6' 2.02 ) Wt 111.131 kg (245 lb) BMI 31.44 kg/m2 SpO2 99% Physical Exam Constitutional: He is oriented to person, place, and time. He appears well- developed and well-nourished. No distress. HENT: Head: Normocephalic and atraumatic. Left Ear: External ear normal. Nose: Nose normal. Mouth/Throat: No oropharyngeal exudate. Mm dry, no thrush Right ear with small amount of effusion, Eyes: Conjunctivae and EOM are normal. Pupils are equal, round, and reactive to light. Neck: Normal range of motion. Neck supple. Cardiovascular: Normal rate, regular rhythm and normal heart sounds. Exam reveals no friction rub. No murmur heard. Pulmonary/Chest: Effort normal and breath sounds normal. No respiratory distress. He has no wheezes. He has no rales. Abdominal: Soft. Bowel sounds are normal. He exhibits no distension. There is no tenderness. Musculoskeletal: Normal range of motion. He exhibits no edema or tenderness. Neurological: He is alert and oriented to person, place, and time. Skin: Skin is warm and dry. He is not diaphoretic. Psychiatric: Flat affect Nursing note and vitals reviewed. Medications Current Outpatient Prescriptions Medication Sig Dispense Refill ??? ondansetron (ZOFRAN) 4 MG tablet Take 1 Tab by mouth every 4 hours as needed for Nausea/Vomiting 10 Tab 0 ??? ciprofloxacin (CIPRO) 500 MG tablet Take 1 Tab by mouth 2 times daily for 7 days 14 Tab 0 ??? hyoscyamine 0.125 MG tablet [...] as needed for Spasms.20 Tab 0 ??? metroNIDAZOLE (FLAGYL) 500 MG [...] Procedures ECG Interpretation ECG Interpretation Lab/SPO2 Interpretation Hospital Encounter on 07/29/15 CBC W AUTO DIFFERENTIAL Result Value Ref Range WBC 7.3 4.4-10.7 x10^9/L WBC Corrected x10^9/L RBC 6.10 (H) 3.80-5.40 x10^12/L Hgb 12.9 12.0-17.6 gm/dL HCT 40.9 35.2-51.7 % MCV 67.0 (L) 80.7-98.3 fl MCH 21.1 (L) 26.7-34.0 pg MCHC 31.5 30.8-35.9 gm/dL Plt Ct 181 153-416 x10^9/L RDW-CV 16.8 (H) 12.1-14.9 % MPV 9.0 (L) 9.4-12.9 fl Neutro 63.1 44.0-73.0 % Lymph 27.0 20.0-43.0 % [place] 8.0 5.0-13.0 % Eos 1.4 0.0-6.0 % Baso 0.4 0.0-2.0 % Immature Grans 0.1 0-1 % Neutro Abs 4.63 2.01-7.14 x10^9/L Lymph Abs 1.98 1.07-3.94 x10^9/L [place] Abs 0.59 0.26-1.07 x10^9/L Eosin Abs 0.10 0-0.47 x10^9/L Baso Abs 0.03 0-0.08 x10^9/L Immature Grans (Abs) 0.01 0.00-0.06 x10^9/L COMPREHENSIVE METABOLIC PANEL Result Value Ref Range Glucose 113 (H) 74-106 mg/dL Sodium 138 136-145 mmol/L Potassium 3.3 (L) 3.5-5.1 mmol/L Chloride 104 98-107 mmol/L CO2 32 (H) 22-31 mmol/L Calcium 9.2 8.5-10.1 mg/dL Anion Gap 2 (L) 5-20 mmol/L BUN 10 7-21 mg/dL Creatinine 0.98 0.50-1.30 mg/dL Alk Phos 88 38-126 U/L ALT/SGPT 73 12-78 U/L AST/SGOT 40 5-40 U/L Protein Total 8.2 6.4-8.2 gm/dL Albumin 4.1 3.4-5.0 gm/dL Bili Total 1.3 (H) 0.2-1.0 mg/dL eGFR MDRD >60 >60 mL/min/1.73m2 eGFR MDRD AFR AMR >60 >60 mL/min/1.73m2 DRUG SCREEN TOX URINE PANEL Result Value Ref Range Amphetamines Screen Urine Not Detected Not Detected Barbiturates Screen Urine Not Detected Not Detected Benzodiazepines Screen Urine Detected (Abnormal) Not Detected Cannabinoids Screen Urine Not Detected Not Detected Cocaine Screen Urine Not Detected Not Detected Methadone Screen Urine Not Detected Not Detected Opiates Screen Urine Not Detected Not Detected Phencyclidine Screen Urine Not Detected Not Detected URINALYSIS ROUTINE W/REFLEX TO CULTURE Result Value Ref Range Color UA Yellow Straw, Yellow, Dark Yellow Clarity UA Clear Specific [place] UA 1.018 1.005-1.030 pH UA 6.0 5.0-8.0 pH Protein UA Trace (Abnormal) Negative Blood UA Negative Negative Leukocyte UA Negative Negative Nitrite UA Negative Negative Glucose UA Negative Negative Ketone UA Negative Negative Bili UA Negative Negative Urobilinogen UA 0.2 0.1-1.0 EU/dL Reflex Status Culture not indicated ACETAMINOPHEN LEVEL Result Value Ref Range Acetaminophen <2.0 (L) 10.0-30.0 ug/mL ALCOHOL ETHYL BLOOD Result Value Ref Range Ethanol <10 <10 mg/dL Ethanol Calc <0.100 gm/dL MONONUCLEOSIS SCREEN Result Value Ref Range [place] Test Negative Negative MAGNESIUM BLOOD Result Value Ref Range Magnesium mg/dL 1.9 1.6-2.6 mg/dL XR CHEST PA AND LATERAL (Results Pending) CT HEAD NON CONTRAST (Results Pending) CT ABDOMEN AND PELVIS NON IV CONTRAST (Results Pending) nad Head ct- no acute process. Progress Notes 10:54 PM PT is declining IVF but willing to have blood work and requests CT . He would like to speak with intake. 12:00 AM blood work reviewed, pt now willing to have IVF. 1:10 AM Intake speaking with pt, pt complaining of left lower abdominal pain, sharp pain and requesting ct of abdomen. 2:09 AM Pt cleared by psych, and given referrals 3:[address] with mild proximal sigmoid diverticulitis, pt offered antibiotics in ER but refused , willing to take prescriptions. Pt will be discharged and has pcp to followup with and GI referral given for the nausea and diverticulitis. ED Course Medical Decision Making I have reviewed the: Nursing Notes and Vitals. I have interpreted the following results: Labs. Pt discharged on zofran and cipro and instructed to follwoup with pcp. Orders Placed This Encounter ??? XR CHEST PA AND LATERAL ??? CT HEAD NON CONTRAST ??? CT ABDOMEN AND PELVIS NON IV CONTRAST ??? CBC W AUTO DIFFERENTIAL ??? COMPREHENSIVE METABOLIC PANEL ??? DRUG SCREEN TOX URINE PANEL ??? URINALYSIS ROUTINE W/REFLEX TO CULTURE ??? ACETAMINOPHEN LEVEL ??? ALCOHOL ETHYL BLOOD ??? MONONUCLEOSIS SCREEN ??? MAGNESIUM BLOOD ??? IP CONSULT TO CENTRAL INTAKE ??? IP CONSULT TO CENTRAL INTAKE ??? 0.9% NaCl IV Bolus ??? potassium chloride (KLOR-CON M) tablet 40 mEq ??? DISCONTD: iohexol (OMNIPAQUE 350) contrast 0-100 mL ??? ondansetron (ZOFRAN) 4 MG tablet ??? ciprofloxacin (CIPRO) 500 MG tablet Clinical Impression Final diagnoses: Weakness Abdominal pain, left lower quadrant Sigmoid diverticulitis Upper respiratory tract infection, unspecified upper respiratory infection GE CONSULTANT * Elvi Lopez RN - 07/29/2015 10:44 PM CST Pt refuses xray at this time. Dr Power aware and in to talk to pt. GE CONSULTANT * Leslie Hill RN - 07/29/2015 9:20 PM CST Pt condition discussed with Dr. Kidd, verbal orders received. GE CONSULTANT documented in this encounter Plan of Treatment Not on file documented as of this encounter Procedures Procedure Name Priority Date/Time Associated Diagnosis Comments CT ABDOMEN PELVIS WO CONTRAST STAT 07/30/2015 2:22 AM CHANGE CONSULTANT Abdominal pain, left lower quadrant URINALYSIS REFLEX MICROSCOPIC REFLEX CULTURE STAT 07/29/2015 11:41 PM CHANGE CONSULTANT MONONUCLEOSIS SCREEN STAT 07/29/2015 11:41 PM CHANGE CONSULTANT URINE DRUG SCREEN IMMUNOASSAY STAT 07/29/2015 11:41 PM CHANGE CONSULTANT XR CHEST 2VW STAT 07/29/2015 11:19 PM CHANGE CONSULTANT Weakness CT HEAD WO CONTRAST STAT 07/29/2015 1 0:58 PM CHANGE CONSULTANT Weakness ALCOHOL ETHYL BLOOD Add on 07/29/2015 1 0:50 PM CHANGE CONSULTANT ACETAMINOPHEN LEVEL Add on 07/29/2015 1 0:50 PM CHANGE CONSULTANT CBC W AUTO DIFFERENTIAL STAT 07/29/2015 9:26 PM CHANGE CONSULTANT COMPREHENSIVE METABOLIC PANEL STAT 07/29/2015 9:26 PM CHANGE CONSULTANT MAGNESIUM BLOOD Add on 07/29/2015 9:26 PM CHANGE CONSULTANT documented in this encounter Results * CT ABDOMEN AND PELVIS NON IV CONTRAST (07/30/2015 2:22 AM CHANGE CONSULTANT) Anatomical Region Laterality Modality Abdomen, Pelvis Computed Tomogra phy 07/30/2015 7:53 AM CHANGE CONSULTANT Impressions 07/30/2015 8:05 AM CHANGE CONSULTANT Thickened sigmoid colon wall with associated diverticula. Findings could be compatible with sigmoid diverticulitis. Other causes for sigmoid wall thickening should be excluded. Edited by Seema Garsia on 07/30/2015 8:00 AM Narrative 07/30/2015 8:[address] ABDOMEN AND PELVIS WITHOUT CONTRAST History: [...] AM Emani Chaudhari MD CT ORDERABLES * MONONUCLEOSIS SCREEN (07/29/2015 11:41 PM CHANGE CONSULTANT) Mononucleosis Screen Negative Negative 07/30/2015 12:14 AM CHANGE CONSULTANT [facility] Blood BLOOD SPECIMEN / Unknown Venipuncture / Unknown 07/29/2015 11:41 PM CHANGE CONSULTANT 07/30/2015 12:12 AM CHANGE CONSULTANT Emani Chaudhari MD LAB - CHEMISTRY [place] Performing Organization Address City/State/[facility] Co de Phone Number [facility] [address] [place] [address] * (ABNORMAL) URINALYSIS ROUTINE W/REFLEX TO CULTURE (07/29/2015 11:41 PM CHANGE CONSULTANT) Color UA Yellow Straw, Yellow, Dark Yellow 07/30/2015 12:33 AM [facility] Clarity UA Clear 07/30/2015 12:33 AM [facility] Specific [place] UA 1.018 1.005 - 1.030 07/30/2015 12:33 AM [facility] pH UA 6.0 5.0 - 8.0 pH 07/30/2015 12:33 AM [facility] Protein UA Trace(A) Negative 07/30/2015 12:33 AM [facility] Blood UA Negative Negative 07/30/2015 12:33 AM [facility] Leukocyte UA Negative Negative 07/30/2015 12:33 AM [facility] Nitrite UA Negative Negative 07/30/2015 12:33 AM [facility] Glucose UA Negative Negative 07/30/2015 12:33 AM CHANGE CONSULTANT [facility] Ketone UA Negative Negative 07/30/2015 12:33 AM [facility] Bilirubin UA Negative Negative 07/30/2015 12:33 AM [facility] Urobilinogen UA 0.2 0.1 - 1.0 EU/dL 07/30/2015 12:33 AM [facility] Reflex Status Culture not indicated 07/30/2015 12:33 AM [facility] Urine URINE SPECIMEN OBTAINED BY CLEAN CATCH PROCEDURE / Unknown Collection / Unknown 07/29/2015 11:41 PM CHANGE CONSULTANT 07/30/2015 12:30 AM [facility] Emani Chaudhari MD LAB - URINALYSIS ORD ERABLES [facility] [address] [place] [address] * (ABNORMAL) DRUG SCREEN TOX URINE PANEL (07/29/2015 11:41 PM [facility]) [facility] Amphetamines Screen Urine Not Detected Not Detected 07/30/2015 12:00 AM [facility] Barbiturates Screen Urine Not Detected Not Detected 07/30/2015 12:00 AM [facility] Benzodiazepines Screen Urine Detected(A) Not Detected 07/30/2015 12:00 AM [facility] Cannabinoids Screen Urine Not Detected Not Detected 07/30/2015 12:00 AM [facility] Cocaine Screen Urine Not Detected Not Detected 07/30/2015 12:00 AM [facility] Methadone Screen Urine Not Detected Not Detected 07/30/2015 12:00 AM [facility] Opiate Screen Urine Not Detected Not Detected 07/30/2015 12:00 AM [facility] Phencyclidine Screen Urine Not Detected Not Detected 07/30/2015 12:00 AM [facility] Urine URINE / Unknown 07/29/2015 1 1:41 PM CHANGE CONSULTANT 07/29/2015 11:48 PM [facility] Narrative [facility] - 07/30/2015 12:00 AM [facility] This drug screen is designed for MEDICAL [...] MD LAB - URINE CHEMISTR Y ORDERABLES [facility] [address] [place] [address] * XR CHEST PA AND LATERAL (07/29/2015 11:19 PM CHANGE CONSULTANT) Anatomical Region Laterality Modality Chest Radiographic Katarzyna ging 07/30/2015 7:15 AM CHANGE CONSULTANT Impressions 07/30/2015 7:16 AM CHANGE CONSULTANT Clear lungs. Narrative 07/30/2015 7:16 AM CHANGE CONSULTANT Chest x-ray 2 views. History: Weakness. 2 [...] CT HEAD NON CONTRAST (07/29/2015 10:58 PM CHANGE CONSULTANT) Anatomical Region Laterality Modality Head Computed Tomogra phy 07/30/2015 7:24 AM CHANGE CONSULTANT Impressions 07/30/2015 7:30 AM CHANGE CONSULTANT Unremarkable study. Edited by Seema Garsia on 07/30/2015 7:29 AM Narrative 07/30/2015 7:[address] BRAIN WITHOUT CONTRAST History: Somnolence, dizziness. [...] * ALCOHOL ETHYL BLOOD (07/29/2015 10:50 PM CHANGE CONSULTANT) Ethanol <10 <10 mg/dL 07/29/2015 11:13 PM CHANGE CONSULTANT [facility] Ethanol Calculated <0.100 gm/dL 07/29/2015 11:13 PM CHANGE CONSULTANT [facility] Blood BLOOD SPECIMEN / Unknown Venipuncture / Unknown 07/29/2015 10:50 PM CHANGE CONSULTANT 07/29/2015 10:50 PM CHANGE CONSULTANT Narrative [facility] - 07/29/2015 11:13 PM CHANGE CONSULTANT Non Legal Serum Alcohol Emani Chaudhari MD LAB - CHEMISTRY [place] [facility] Organization Address City/State/ZIP Co de Phone Number [facility] [address] [place] [address] * (ABNORMAL) ACETAMINOPHEN LEVEL (07/29/2015 10:50 PM CHANGE CONSULTANT) Acetaminophen <2.0(L) 10.0 - 30.0 ug/mL 07/29/2015 11:13 PM [facility] Blood BLOOD SPECIMEN / Unknown Venipuncture / Unknown 07/29/2015 10:50 PM CHANGE CONSULTANT 07/29/2015 10:50 PM CHANGE CONSULTANT Narrative [facility] - 07/29/2015 11:13 PM [facility] ACETAMINOPHEN COMMENT Critical values: 4 Hours [...] may alter the peak level. Contact the [facility] at or reserved for healthcare professionals to assist you in evaluating potentially toxic acetaminophen levels. Emani Chaudhari MD LAB - CHEMISTRY [place] Performing Organization Address [facility] Co de Phone Number [facility] [address] [place] [address] [phone] * MAGNESIUM BLOOD (07/29/2015 9:26 PM CHANGE CONSULTANT) Magnesium 1.9 1.6 - 2.6 mg/dL 07/30/2015 12:24 AM [facility] Blood BLOOD SPECIMEN / Unknown 07/29/2015 9:26 PM CHANGE CONSULTANT 07/29/2015 9:31 PM CHANGE CONSULTANT Emani Chaudhari MD LAB - CHEMISTRY [place] Performing Organization Address [facility] de Phone Number [facility] [address] [place] [address] [phone] * (ABNORMAL) COMPREHENSIVE METABOLIC PANEL (07/29/2015 9:26 PM CHANGE CONSULTANT) Glucose 113(H) 74 - 106 mg/dL 07/29/2015 9:48 PM [facility] Sodium 138 136 - 145 mmol/L 07/29/2015 9:48 PM [facility] Potassium 3.3(L) 3.5 - 5.1 mmol/L 07/29/2015 9:48 PM [facility] Chloride 104 98 - 107 mmol/L 07/29/2015 9:48 PM [facility] CO2 32(H) 22 - 31 mmol/L 07/29/2015 9:48 PM [facility] Calcium 9.2 8.5 - 10.1 mg/dL 07/29/2015 9:48 PM [facility] Anion Gap 2(L) 5 - 20 mmol/L 07/29/2015 9:48 PM [facility] BUN 10 7 - 21 mg/dL 07/29/2015 9:48 PM [facility] Creatinine 0.98 0.50 - 1.30 mg/dL 07/29/2015 9:48 PM [facility] Alkaline Phosphatase 88 38 - 126 U/L 07/29/2015 9:48 PM [facility] ALT 73 12 - 78 U/L 07/29/2015 9:48 PM [facility] AST 40 5 - 40 U/L 07/29/2015 9:48 PM [facility] Protein Total 8.2 6.4 - 8.2 gm/dL 07/29/2015 9:48 PM [facility] Albumin 4.1 3.4 - 5.0 gm/dL 07/29/2015 9:48 PM [facility] Bilirubin Total 1.3(H) 0.2 - 1.0 mg/dL 07/29/2015 9:48 PM [facility] eGFR by MDRD >60 >60 mL/min/1.7 3m2 07/29/2015 9:48 PM [facility] eGFR by MDRD >60 >60 mL/min/1.7 3m2 07/29/2015 9:48 PM [facility] Blood BLOOD SPECIMEN / Unknown 07/29/2015 9:26 PM CHANGE CONSULTANT 07/29/2015 9:31 PM CHANGE CONSULTANT Emani Chaudhari MD LAB - CHEMISTRY [place] [facility] Organization Address City/State/ZIP Co de Phone Number [facility] [address] [place] [address] * (ABNORMAL) CBC W AUTO DIFFERENTIAL (07/29/2015 9:26 PM CHANGE CONSULTANT) WBC 7.3 4.4 - 10.7 x10^9/L 07/29/2015 9:33 PM [facility] WBC Corrected x10^9/L 07/29/2015 9:33 PM [facility] RBC 6.10(H) 3.80 - 5.40 x10^12/L 07/29/2015 9:33 PM [facility] Hemoglobin 12.9 12.0 - 17.6 gm/dL 07/29/2015 9:33 PM [facility] Hematocrit 40.9 35.2 - 51.7 % 07/29/2015 9:33 PM [facility] MCV 67.0(L) 80.7 - 98.3 fl 07/29/2015 9:33 PM [facility] MCH 21.1(L) 26.7 - 34.0 pg 07/29/2015 9:33 PM [facility] MCHC 31.5 30.8 - 35.9 gm/dL 07/29/2015 9:33 PM [facility] Platelet Count 181 153 - 416 x10^9/L 07/29/2015 9:33 PM [facility] RDW-CV 16.8(H) 12.1 - 14.9 % 07/29/2015 9:33 PM [facility] MPV 9.0(L) 9.4 - 12.9 fl 07/29/2015 9:33 PM [facility] Neutrophils % 63.1 44.0 - 73.0 % 07/29/2015 9:33 PM [facility] Lymphocytes % 27.0 20.0 - 43.0 % 07/29/2015 9:33 PM [facility] Monocytes % 8.0 5.0 - 13.0 % 07/29/2015 9:33 PM [facility] Eosinophils % 1.4 0.0 - 6.0 % 07/29/2015 9:33 PM [facility] Basophils % 0.4 0.0 - 2.0 % 07/29/2015 9:33 PM [facility] Immature Granulocytes 0.1 0 - 1 % 07/29/2015 9:33 PM [facility] Neutrophil Absolute 4.63 2.01 - 7.14 x10^9/L 07/29/2015 9:33 PM [facility] Lymphocytes Absolute 1.98 1.07 - 3.94 x10^9/L 07/29/2015 9:33 PM [facility] Monocytes Absolute 0.59 0.26 - 1.07 x10^9/L 07/29/2015 9:33 PM [facility] Eosinophils Absolute 0.10 0 - 0.47 x10^9/L 07/29/2015 9:33 PM [facility] Basophils Absolute 0.03 0 - 0.08 x10^9/L 07/29/2015 9:33 PM [facility] Immature Granulocytes Absolute 0.01 0.00 - 0.06 x10^9/L 07/29/2015 9:33 PM CHANGE CONSULTANT [facility] Blood BLOOD SPECIMEN / Unknown 07/29/2015 9:26 PM CHANGE CONSULTANT 07/29/2015 9:31 PM CHANGE CONSULTANT Emani Chaudhari MD LAB - HEMATOLOGY ORD ERABLES [facility] [address] [place] [address] documented in this encounter Visit Diagnoses Diagnosis Weakness Other malaise and fatigue Abdominal pain, left lower quadrant Sigmoid diverticulitis Diverticulitis of colon (without mention of hemorrhage) Upper respiratory tract infection, unspecified upper respiratory infection documented in this encounter Administered Medications Inactive Administered Medications - up to 3 most recent administrations Medication Order MAR Action Action Date Dose Rate Site 0.9% NaCl IV Bolus 1,000 mL, Administer over 61 Minutes, BOLUS IV, 1 dose, On Wed07/29/15 at 2345 $ Given 07/30/2015 12:00 AM CHANGE CONSULTANT 1,000 mL documented in this encounter Active and Recently Administered Medications Times are shown in CHANGE CONSULTANT. Scheduled Medication Order 07/28/2015 07/29/2015 07/30/2015 0.9% NaCl IV Bolus (COMPLETED) 1,000 mL, Administer over 61 Minutes, BOLUS IV, 1 dose, On Wed07/29/15 at 2345 0000 ($ Given - Prov ider: Elvi Lopez RN)0101 (Due: Rx Stopped - Provider: Elvi Lopez RN) documented in this encounter Care Teams Wig Dresser Relationship Specialty Start Date End Date Jessica Waters MD [address] [facility] [address] [facility] [address] [place] [address] PCP - General Internal Medicine 07/29/15 07/17/19 documented as of this encounter
--- OUTSIDE RECORDS SUMMARY | 2024-09-10 03:45 | XMS_ITS | Encounter Summary ---
Author Organization [facility] Address [address] [place] [address] Care Team Providers Care Nuclear Criticality Safety Engineer Name Role Phone Unavailable Primary Care Provider Unavailabl e Reason for Visit * Reason Onset Date Comments Nausea 10/02/2019 Cramps 10/02/2019 Pain Abdominal 10/02/2019 Encounter Details Date Type Department Care Team (Late st Contact Info) Description 10/02/2019 Telephone [facility] General Internal Medicine [address] [place] [address] Radha Palafox, REGISTRATION REP-SUPERVISOR CEREAL [address] [facility] [place] [phone] Nausea; Cramps; Pain Abdominal Social History Tobacco Use Types [...] * Telephone Encounter - Lynne Mendes - 10/02/2019 10:39 AM CST Pt calling in to report he urinated and after urination he had some niki blood on 10/01/19 x1 yesterday evening and had nausea and ABD pain/gas for about a week. Pt reports he went to ED last night and reports blood work resulted fine, reports has no UTI. Pt requesting GIM office call [facility], [phone] for ED report for VENTURA Palafox to review. DE recommended pt call ED and request medical records to be faxed to [facility] and pt raised voice w/ increased agitation at DE stating he had no time and would not be able to go sign medical release paperwork if needed. Pt difficult to redirect at times d/t increased agitation and speaking over TN w/ loud voice and reports he has no ABD pain but has burning, gassy 1/10 feels like discomfort . TN offered triage to pt. Pt accepted in loud voice w/ increase agitation while talking over TN whentriage offered and when triage started. Triage completed. Pt difficult to redirect at times during triage, pt talking over TN w/ increased agitation and verbalizing triage was a waste of time. See triage encounter 10/02/19 for further detail. Pt requesting to send information to VENTURA Palafox for c/b to discuss sx further. CB# [phone] Routed to provider for further review [employer] documented in this encounter Plan of Treatment Not on file documented as of this encounter Visit Diagnoses Not on filedocumented in this encounter
--- OUTSIDE RECORDS SUMMARY | 2024-09-10 03:45 | XMS_ITS | Encounter Summary ---
Author Organization [facility] Address [address] [place] [address] Care Team Providers Care Lab Asst Name Role Phone Alcon Munoz MD Primary Care Provider [phone] Reason for Visit * Reason Onset Date Comments Question 08/08/2012 Encounter Details Date Type Department Care Team (Late st Contact Info) Description 08/08/2012 Telephone [facility] - Family Medicine [address] [place] [address] [phone] [place] [address] [place] [address] Question Social History Tobacco Use [...] * Telephone Encounter - Arely Loya - 08/09/2012 11:17 AM CST Patient called the office 7 times today with various issues that we talked to him about yesterday on his last call patient stated that he is dropping Dr. Munoz as his primary care Dr. Munoz is inagreement. RANGE TECHNICIAN * Telephone Encounter - Arely Loya - 08/08/2012 4:04 PM CST Patient called back very ignorant on the phone talking over me wouldn't let me tell him Dr. Murray suggestions. Dr. Munoz would not ok xanax he needs to get that from his psychiatrist patient is very non compliant doesn't want to do what he is told by the doctor. RANGE TECHNICIAN * Telephone Encounter - Arely Loya - 08/08/2012 4:02 PM CST Patient called asking about a GI doctor and also had questions about getting an rx for xanax, he cancelled his appt. With his psychiatrist. RANGE TECHNICIAN documented in this encounter Plan of Treatment Not on file documented as of this encounter Visit Diagnoses Not on filedocumented in this encounter Care Teams Lab Asst Relationship Specialty Start Date End Date Alcon Munoz MD PCP - General Family Medicine 07/05/12 02/01/13 documented as of this encounter
--- OUTSIDE RECORDS SUMMARY | 2024-09-10 03:45 | XMS_ITS | Encounter Summary ---
Author Organization [facility] Address [address] [place] [address] Care Team Providers Care Physician Practice Coordinator Name Role Phone Unknown, Provider Primary Care Provider Unavaila ble Reason for Visit * Reason Comments PANIC ATTACK Pt here with panic a ttacks , pt states has been increasingly anxious since . Pt states is between doctors and ran out of alprazolam last . Unable to see new doctor until 07/30. Encounter Details Date Type Department Care Team (Late st Contact Info) Description 06/30/2008 7:03 PM CDT - 06/30/2008 8:00 PM CDT Hospital Encounter Vignesh Franco MD update address Emergency Medicine Discharge Disposition: Left Against Medical Advice/Discontinued Care Social History Tobacco Use Types Packs/Day [...] Sign Reading Time Taken Comments Blood Pressure 152/98 06/30/2008 7:17 PM CDT Pulse 95 06/30/2008 7:17 PM CDT Temperature 35.7 ??C (96.2 ??F) 06/30/2008 7:25 PM CD T Respiratory Rate 20 06/30/2008 7:17 PM CDT Oxygen Saturation - - Inhaled Oxygen Concentration - - Weight 102.1 kg (225 lb) 06/30/2008 7:17 PM CDT Height 185.4 cm (6' 1 ) 06/30/2008 7:17 PM CDT Body Mass Index 29.69 06/30/2008 7:17 PM CDT documented in this encounter Discharge Instructions * Discharge Instructions* Vignesh Franco MD - 06/30/2008 7:59 PM CDT See the follow-up physician for further care. * Discharge Instructions* Kim, Leonor - 06/30/2008 12:00 AM CDT documented in this encounter [...] as of this encounter ED Notes * Verna Johnston - 06/30/2008 8:[address] Franco responded to pt.s question regarding what pain meds would be prescribed for him. Dr. Franco informed him that would not be giving him any narcotics and pt became agitated and left without further instructions or responses. * Vignesh Franco MD - 06/30/2008 7:52 PM CDT HPI Comments: The patient says he was sent to the ED to get medication. Psych Disorder The history is provided by the patient. This is a chronic problem. The patient was referred by self.The current episode started more than 1 week ago. The primary symptoms include depression,anxiety,stress and panic attack.Precipitating factors: The patient says he ran out of medications and is between doctors. Pertinent negatives include no agitated. Review of Systems Neurological: Negative. Psychiatric: Is nervous/anxious. Physical Exam Nursing note and vitals reviewed. Constitutional: He is oriented and developed, nourished, and not distressed. HENT: Head: Normocephalic. Eyes: Pupils are equal, round, and reactive to light. Neck: Normal range of motion. Neck supple. Musculoskeletal: Normal range of motion. Neurological: He is alert and oriented. Gait normal. GCS score is 15. Skin: Skin is warm. Psychiatric: Mood, memory, affect and judgment normal. The patient is not aggitated or depressed. EKG Interpretation Lab Interpretation History Past Medical History Diagnosis Date ??? Depression ??? Anxiety ??? Panic Attacks ??? Diverticulitis ??? GERD [...] outpatient prescriptions Medication Sig Dispense Refill ??? XANAX 2 MG tablet Take 2 mg by mouth 3 times daily. Ran out of script ??? LEXAPRO 10 MG tablet Take 10 mg by mouth daily. ??? PRILOSEC PO Take by mouth as needed ??? DISCONTD: LEVSIN/SL 0.125 MG SUBL Dissolve under the tongue as needed ??? DISCONTD: FLAGYL PO Take by mouth. ??? DISCONTD: CIPRO PO Take by mouth. ??? DISCONTD: promethazine (PHENERGAN) 25 MG suppository Insert 1 Suppository into the rectum every6 hours as needed for Nausea/Vomiting. 6 0 ??? DISCONTD: promethazine (PHENERGAN) 25 MG tablet Take 1 Tab by mouth every 6 hours as needed forNausea/Vomiting. 10 0 Progress Notes I reviewed the patient's previous visits and advised the patient I will not refill his chronic medications from the ED. The patient left without being signed out. Procedures Medical Decision Making I have reviewed the: Nursing Notes and Vitals. ED Plan/Course: Diagnosis No diagnosis found. documented in this encounter Miscellaneous Notes * Miscellaneous Scans - Document, Scanned - 06/30/2008 12:00 AM CDT * Miscellaneous Scans - Document, Scanned - 06/30/2008 12:00 AM CDT documented in this encounter Plan of Treatment Not on file documented as of this encounter Visit Diagnoses Diagnosis Anxiety- Primary Anxiety state, unspecified documented in this encounter Care Teams Physician Practice Coordinator Relationship Specialty Start Date End Date Unknown, Provider PCP - General 7/15/08 9/25/09 documented as of this encounter
--- OUTSIDE RECORDS SUMMARY | 2024-09-10 03:45 | XMS_ITS | Encounter Summary ---
Author Organization [facility] Address [address] [facility] [place] [address] Care Team Providers Care Museum Guide Name Role Phone Unavailable Primary Care Provider Unavailabl e Reason for Visit * Reason Onset Date Comments General 08/02/2019 Encounter Details Date Type Department Care Team (Late st Contact Info) Description 08/02/2019 Telephone [facility] General Internal Medicine [address] [place] [address] Radha Palafox, ATTENDING PATHOLOGIST-FAMILY LAW MEDIATOR [address] [facility] [place] [phone] General Social History Tobacco Use Types Packs/Day [...] encounter Miscellaneous Notes * Telephone Encounter - Jovan Grewal - 08/02/2019 2:28 PM CST Pt called to request to speak with the nurse in was in the room during his last office visit. Caller stated that he had some questions for her and she was taking some notes during the visit, so he wants to speak directly to her. Would not allow TN to attempt to help him or answer questions, and when TN tried to review the office visit note with the pt, he stated That's not what happened, that's not what she said . Message routed to provider and [facility] nurse communication for further assistance L TILE SETTER documented in this encounter Plan of Treatment Not on file documented as of this encounter Visit Diagnoses Not on filedocumented in this encounter
--- OUTSIDE RECORDS SUMMARY | 2024-09-10 03:45 | XMS_ITS | Encounter Summary ---
Author Organization [facility] Health Address [address] [facility] [place] [address] Care Team Providers Care Environmental Engineering Manager Name Role Phone Unavailable Primary Care Provider Unavailabl e Reason for Visit * Reason Onset Date Comments Diverticulitis 09/30/2019 Encounter Details Date Type Department Care Team (Late st Contact Info) Description 09/30/2019 Telephone [facility] [address] [facility] [address] [place] [address] Teri Sumner MD [address] OF [facility] [place] [place] [phone] Diverticulitis Social History Tobacco Use Types Packs/Day [...] encounter Miscellaneous Notes * Telephone Encounter - Teri Sumner MD - 09/30/2019 8:09 PM ELECTROCARDIOGRAPH REPAIRER C/o a recurrent episode of diverticulitis with LLQ cramping and nausea. Denies fever, chills, blood in stool. Acute diverticulitis - Plan: ciprofloxacin (CIPRO) 500 MG tablet, metroNIDAZOLE (FLAGYL) 500 MG tablet, hyoscyamine 0.125 MG tablet, promethazine (PHENERGAN) 25 MG tablet F/u with PCP for GI referral Go to ED if worse TROCARDIOGRAPH REPAIRER documented in this encounter Plan of Treatment Not on file documented as of this encounter Visit Diagnoses Diagnosis Acute diverticulitis- Primary documented in this encounter
--- OUTSIDE RECORDS SUMMARY | 2024-09-10 03:45 | XMS_ITS | Encounter Summary ---
Author Organization [facility] Health Address [address] [place] [address] Care Team Providers Care Process Safety Engineer Name Role Phone Unavailable Primary Care Provider Unavailabl e Encounter Details Date Type Department Care Team (Late st Contact Info) Description 08/17/2019 Orders Only [facility] [address] [place] [address] Radha Palafox, DEMOLITION WORKER-TOWER SWITCH OPERATOR [address] OF [facility] [place] [phone] Social History Tobacco Use Types Packs/Day Years [...]
--- OUTSIDE RECORDS SUMMARY | 2024-09-10 03:45 | XMS_ITS | Encounter Summary ---
Author Organization [facility] Address [address] [facility] [place] [address] Care Team Providers Care Faucets Assembler Name Role Phone Unknown, Provider Primary Care Provider Unavaila ble Encounter Details Date Type Department Care Team (Late st Contact Info) Description 05/04/2008 6:36 PM CDT - 05/04/2008 8:11 PM CDT Hospital Encounter Yuridia Milton MD [address] [place] [id number] Emergency Medicine Discharge Disposition: Home or Self [...] on filedocumented in this encounter Care Teams Faucets Assembler Relationship Specialty Start Date End Date Unknown, Provider PCP - General 03/27/08 06/07/09 documented as of this encounter
--- OUTSIDE RECORDS SUMMARY | 2024-09-10 03:45 | XMS_ITS | Encounter Summary ---
Author Organization [facility] [address] [facility] [place] [address] Care Team Providers Care Case Consultant Name Role Phone None, Pcp Primary Care Provider Jessica Somers MD Primary Care Provider Encounter Details Date Type Department Care Team (Late st Contact Info) Description 11/29/2013 Hospital Outpatient Visit Historic [facility] DEFAULT [address] [place] [address] [place] [address] [facility] [address] [place] [address] Discharge Disposition: Home or Self Care Social [...] on filedocumented in this encounter Care Teams Case Consultant Relationship Specialty Start Date End Date None, Pcp [place] [address] PCP - General Nurse Practitioner 02/02/13 Jessica Waters MD [facility] [facility] [place] [phone] PCP - General Internal Medicine 07/29/15 07/17/19 documented as of this encounter
--- OUTSIDE RECORDS SUMMARY | 2024-09-10 03:45 | XMS_ITS | Encounter Summary ---
Author Organization [facility] Address [address] [facility] [place] [address] Care Team Providers Care Biological Sciences Instructor Name Role Phone None, Pcp Primary Care Provider Unavailabl e Reason for Visit * Reason Comments Sinus Problem pt with c/o sinus co ngestion for about 3 weeks Discharge Penile pt states that he vidales d sex and a condom broke. he thinks he may have a STD Psychiatric Problem pt wants to talk to someone about his ptsd. pt has flight of ideas. pt states that his family is the amría. he took a cab here so no one would know he came. pt started talking about the police beating him up and breaking his tooth then began talking about his purple heart and how the president is not really a president. pt also began talking about having oral sex with women and how women will perform any act on a man in a uniform. Encounter Details Date Type Department Care Team (Late st Contact Info) Description 06/26/2013 2:01 AM CDT - 06/26/2013 2:58 AM CDT Emergency ER at [address] [address] Augusto Culver DO [address] [place] [address] [place] [address] Chronic maxillary sinusitis (Primary Dx) Discharge Disposition: Home or Self [...] Sign Reading Time Taken Comments Blood Pressure 143/83 06/26/2013 1:35 AM CDT Pulse 108 06/26/2013 1:35 AM CDT Temperature 36.6 ??C (97.8 ??F) 06/26/2013 1:35 AM CD T Respiratory Rate 20 06/26/2013 1:35 AM CDT Oxygen Saturation 98% 06/26/2013 1:35 AM CDT Inhaled Oxygen Concentration - - Weight 120.2 kg (265 lb) 06/26/2013 1:35 AM CDT Height 188 cm (6' 2 ) 06/26/2013 1:35 AM CDT Body Mass Index 34.02 06/26/2013 1:35 AM CDT documented in this encounter Discharge Instructions * Discharge Instructions* Augusto Culver DO - 06/26/2013 2:38 AM CDT Images from the original note were not included. Sinusitis Sinusitis is redness, soreness, and swelling (inflammation) of the paranasal sinuses. Paranasal sinuses are air pockets within the bones of your face (beneath the eyes, the middle of the forehead, orabove the eyes). In healthy paranasal sinuses, mucus is able to drain out, and air is able to circulate through them by way of your nose. However, when your paranasal sinuses are inflamed, mucus and air can become trapped. This can allow bacteria and other germs to grow and cause infection. Sinusitis can develop quickly and last only a short time (acute) or continue over a long period (chronic). Sinusitis that lasts for more than 12 weeks is considered chronic. CAUSES Causes of sinusitis include: ?? Allergies. ?? Structural abnormalities, such as displacement of the cartilage that separates your nostrils (deviated septum), which can decrease the air flow through your nose and sinuses and affect sinus drainage. ?? Functional abnormalities, such as when the small hairs (cilia) that line your sinuses and help remove mucus do not work properly or are not present. SYMPTOMS Symptoms of acute and chronic sinusitis are the same. The primary symptoms are pain and pressure around the affected sinuses. Other symptoms include: ?? Upper toothache. ?? Earache. ?? Headache. ?? Bad breath. ?? Decreased sense of smell and taste. ?? A cough, which worsens when you are lying flat. ?? Fatigue. ?? Fever. ?? Thick drainage from your nose, which often is green and may contain pus (purulent). ?? Swelling and warmth over the affected sinuses. DIAGNOSIS Your caregiver will perform a physical exam. During the exam, your caregiver may: ?? Look in your nose for signs of abnormal growths in your nostrils (nasal polyps). ?? Tap over the affected sinus to check for signs of infection. ?? View the inside of your sinuses (endoscopy) with a special imaging device with a light attached (endoscope), which is inserted into your sinuses. If your caregiver suspects that you have chronic sinusitis, one or more of the following tests may be recommended: ?? Allergy tests. ?? Nasal culture A sample of mucus is taken from your nose and sent to a lab and screened for bacteria. ?? Nasal cytology A sample of mucus is taken from your nose and examined by your caregiver to determine if your sinusitis is related to an allergy. TREATMENT Most cases of acute sinusitis are related to a viral infection and will resolve on their own [id number] days. Sometimes medicines are prescribed to help relieve symptoms (pain medicine, decongestants,nasal steroid sprays, or saline sprays). However, for sinusitis related to a bacterial infection, your caregiver will prescribe antibiotic medicines. These are medicines that will help kill the bacteria causing the infection. Rarely, sinusitis is caused by a fungal infection. In theses cases, your caregiver will prescribe antifungal medicine. For some cases of chronic sinusitis, surgery is needed. Generally, these are cases in which sinusitis recurs more than 3 times per year, despite other treatments. HOME CARE INSTRUCTIONS ?? Drink plenty of water. Water helps thin the mucus so your sinuses can drain more easily. ?? Use a humidifier. ?? Inhale steam 3 to 4 times a day (for example, sit in the bathroom with the shower running). ?? Apply a warm, moist washcloth to your face 3 to 4 times a day, or as directed by your caregiver. ?? Use saline nasal sprays to help moisten and clean your sinuses. ?? Take [id number] or prescription medicines for pain, discomfort, or fever only as directed by your caregiver. SEEK IMMEDIATE MEDICAL CARE IF: ?? You have increasing pain or severe headaches. ?? You have nausea, vomiting, or drowsiness. ?? You have swelling around your face. ?? You have vision problems. ?? You have a stiff neck. ?? You have difficulty breathing. MAKE SURE YOU: ?? Understand these instructions. ?? Will watch your condition. ?? Will get help right away if you are not doing well or get worse. Document Released: 08/30/2006 Document Revised: 11/21/2012 Document Reviewed: 09/13/2012 ExitCare?? Patient Information ??2013 [employer]. documented in this encounter Medications at Time [...] 09/11/2013 metroNIDAZOLE (FLAGYL) 500 MG tablet Take 500 [...] of this encounter ED Notes * Bertha Cesar RN - 06/26/2013 2:58 AM CDT Patient left without discharge instruction. * Augusto Culver, - 06/26/2013 2:29 AM CDT Provider contact with the patient: 06/26/2013 02:29 Carlos Mcgee [id number] [facility] EMERGENCY DEPARTMENT History Chief Complaint Patient presents with ??? Sinus Problem pt with c/o sinus congestion for about 3 weeks ??? Discharge Penile pt states that he had sex and a condom broke. he thinks he may have a STD ??? Psychiatric Problem pt wants to talk to someone about his ptsd. pt has flight of ideas. pt states that his family is the maría. he took a cab here so no one would know he came. pt started talking about the police beating him up and breaking his tooth then began talking about his purple heart and how the president is not really a president. pt also began talking about having oral sex with women and how women will perform any act on a man in a uniform. HPI Comments: Multiple complaints: 1. Hx of chronic sinusitis. Has finished multiple rounds of abx, inhaled steroids, Oral steroids, antihistamines. No improvement. Has ENT specialist. Denies fevers and denies any nasal discharge. ONly reports sinus pressure and wants to sleep a lot. 2. Concerned of possibility of STD. States his significant other was performing oral sex on him while he wore a condom and the condom broke. He is concerned of possibility of STD spread. States he has sex with this monogamous partner who had not evidence of oral STD. 3. Triage reports pt has flight of ideas, wordy, tangential, Paranoid behavior. He provides very overinclusive history to me with tangential thought patterns, Features of paranoia and grandiosity. Hedenies any suicidal thoughts or ideas, and denies any self awareness of mental illness or history of mental illness other than PTSD. Past Medical History: Depression Anxiety Panic attacks Diverticulitis GERD (gastroesophageal reflux disease) Diverticulosis of the colon Male Genitourinary The primary symptoms do not include penile discharge or penile pain.The history is provided by the patient. This is a new problem. The current episode started 2 days ago. The patient is experiencing no pain. He is experiencing no difficulties urinating. The past medical history does not include recurrent UTIs.Nothing relieves the symptoms. Nothing aggravates the symptoms. There was no injury mechanism. Past Medical History Diagnosis Date ??? Depression [...] of Systems Review of Systems Constitutional: Negative. HENT: Positive for congestion. Eyes: Negative. Respiratory: Negative. Cardiovascular: Negative. Gastrointestinal: Negative. Genitourinary: Negative. Negative for penile pain and penile discharge. Musculoskeletal: Negative. Skin: Negative. Neurological: Negative. Psychiatric/Behavioral: Positive for depression. Negative for suicidal ideas and substance abuse. The patient is not nervous/anxious. All other systems reviewed and are negative. Physical Exam BP 143/83 Pulse 108 Temp 97.8 ??F Resp 20 Ht 1.88 m (6' 2 ) Wt 120.203 kg (265 lb) BMI 34.02 kg/m2 SpO2 98% Physical Exam Nursing note and vitals reviewed. Constitutional: He is oriented to person, place, and time and well-developed, well-nourished, and in no distress. HENT: Head: Normocephalic and atraumatic. Right Ear: Tympanic membrane, external ear and ear canal normal. Left Ear: Tympanic membrane, external ear and ear canal normal. Nose: Nose normal. No mucosal edema, rhinorrhea or sinus tenderness. Mouth/Throat: Oropharynx is clear and moist. No oropharyngeal exudate, posterior oropharyngeal edema, posterior oropharyngeal erythema or tonsillar abscesses. Eyes: Conjunctivae normal and EOM are normal. Pupils are equal, round, and reactive to light. Righteye exhibits no discharge. Left eye exhibits no [...] There is no rebound and no guarding. Genitourinary: Testes/scrotum normal and penis normal. Penis exhibits no lesions and no edema. No discharge found. Pt refuses genital swab. Musculoskeletal: He exhibits no edema and no tenderness. Lymphadenopathy: He has no cervical adenopathy. Neurological: He is alert and oriented to person, place, and time. He is agitated. He displays normal speech. No sensory deficit. He exhibits normal muscle tone. GCS score is 15. Normal mental status exam. Skin: Skin is warm and dry. No rash noted. No erythema. No pallor. Psychiatric: Mood and memory normal. His affect is inappropriate. He expresses no suicidal ideation. He expresses no suicidal plans and no homicidal plans. He exhibits disordered thought content. Denies any thoughts of hurting himself or others. Medications Current Outpatient Prescriptions Medication Status Sig Dispense Refill ??? oxycodone-acetaminophen (PERCOCET) 5-325 MG tablet Active [...] mouth once daily. Procedures Procedures EKG Interpretation Lab Interpretation Oxygen Saturation Interpretation The oxygen saturation level is: 98%. The patient was on Room Air for the saturation measurement. Measurement frequency: Spot Check. Oxygen saturation interpretation is Normal. Intervention(s) used: Patient Observed. Results for orders placed during the hospital encounter of 06/26/13 URINALYSIS ROUTINE W/REFLEX TO CULTURE Component Value Range Color UA Yellow Straw, Yellow, Dark Yellow Clarity UA Clear Specific Caldwell UA 1.017 1.005-1.030 pH UA 6.5 5.0-8.0 Protein UA Negative Negative Blood UA Negative Negative Leukocyte UA Negative Negative Nitrite UA Negative Negative Glucose UA Negative Negative Ketone UA Negative Negative Bili UA Negative Negative Urobilinogen UA 0.2 0.1-1.0 EU/dL Reflex Status Culture not indicated Progress Notes ED Course Medical Decision Making I have reviewed the: Nursing Notes and Vitals. I have interpreted the following results: Oxygen Saturation. Pt has extremely low risk of transmission of STD and refuses genital swab. Based on his complete lack of symptoms and multiple drug allergies, I would avoid empiric treatment at this time. His chronic sinusitis is maximally treated and would be better evaluated by ENT specialist. He seesDr. Muhammad. His odd and agitated behavior with tangentiality and features of paranoia suggests either mood disorder or schizoaffective disease. He has normal mental exam and has no intent of self harm or harm toothers. He refuses behavioral medicine evaluation and denies having any mental or psychiatric issues. There is no indication to hold him against his will or force evaluation. Pt stable for release and outpatient f/u for his multiple issues which have a large component of contributing psychiatric overlay. I have given the patient instructions regarding their diagnosis, expectations, follow up, and return precautions. I explained to the patient that emergent conditions may arise that are not yet detectable on exam or testing, and to return to the ER for new, worsening, or any persistent conditions. I've explained the importance of following up with the patient's doctor (or the referral physician) as instructed. The patient verbalized understanding of the discharge instructions and has no further questions at discharge. Orders Placed This Encounter ??? URINALYSIS ROUTINE W/REFLEX TO CULTURE Clinical Impression Final diagnoses: Chronic maxillary sinusitis (Primary) documented in this encounter Miscellaneous Notes * Miscellaneous Scans - Document, Scanned - 06/26/2013 8:49 PM CDT * Miscellaneous Scans - Document, Scanned - 06/26/2013 8:48 PM CDT documented in this encounter Plan of Treatment Not on file documented as of this encounter Procedures Procedure Name Priority Date/Time Associated Diagnosis Comments URINALYSIS REFLEX MICROSCOPIC REFLEX CULTURE STAT 06/26/2013 2:41 AM CDT documented in this encounter Results * URINALYSIS ROUTINE W/REFLEX TO CULTURE (06/26/2013 2:41 AM CDT) Color UA Yellow Straw, Yellow, Dark Yellow 06/26/2013 2:48 AM CDT [facility] Clarity UA Clear 06/26/2013 2:48 AM CDT [facility] Specific Caldwell UA 1.017 1.005 - 1.030 06/26/2013 2:48 AM CDT [facility] pH UA 6.5 5.0 - 8.0 06/26/2013 2:48 AM CDT [facility] Protein UA Negative Negative 06/26/2013 2:48 AM CDT [facility] Blood UA Negative Negative 06/26/2013 2:48 AM CDT [facility] Leukocyte UA Negative Negative 06/26/2013 2:48 AM CDT [facility] Nitrite UA Negative Negative 06/26/2013 2:48 AM CDT [facility] Glucose UA Negative Negative 06/26/2013 2:48 AM CDT [facility] Ketone UA Negative Negative 06/26/2013 2:48 AM CDT [facility] Bilirubin UA Negative Negative 06/26/2013 2:48 AM CDT [facility] Urobilinogen UA 0.2 0.1 - 1.0 EU/dL 06/26/2013 2:48 AM CDT [facility] Reflex Status Culture not indicated 06/26/2013 2:48 AM CDT [facility] Urine URINE SPECIMEN OBTAINED BY CLEAN CATCH PROCEDURE / Unknown 06/26/2013 2:41 AM CDT 06/26/2013 2:43 AM CDT Augusto Culver DO LAB - URINALYSIS ORD ERABLES Performing Organization Address City/State/[facility] Co de Phone Number [facility] [address] [place] [address] documented in this encounter Visit Diagnoses Diagnosis Chronic maxillary sinusitis- Primary documented in this encounter Care Teams Biological Sciences Instructor Relationship Specialty Start Date End Date None, Pcp [place] [address] PCP - General Nurse Practitioner 02/02/13 documented as of this encounter
--- OUTSIDE RECORDS SUMMARY | 2024-09-10 03:45 | XMS_ITS | Encounter Summary ---
Author Organization [facility] Address [address] [facility] [place] [address] Care Team Providers Care Hob Mill Operator Name Role Phone Unavailable Primary Care Provider Unavailabl e Reason for Visit * Reason Onset Date Comments Pain Abdominal 10/02/2019 Encounter Details Date Type Department Care Team (Late st Contact Info) Description 10/02/2019 Nurse Triage [facility] General Internal Medicine [address] [place] [address] Radha Palafox, COSTUME TECHNICIAN-WINDLACE MACHINE OPERATOR [address] [facility] [address] DIV OF [facility] [place] [phone] Pain Abdominal Social History Tobacco Use Types [...] Telephone Encounter - Lynne Mendes - 10/02/2019 10:54 AM CST Reason for Disposition ? ? [1] MILD-MODERATE pain AND [2] constant AND [3] present > 2 hours Answer Assessment - Initial Assessment Questions 1. LOCATION: Where does it hurt? ABD and lower ABD, Per pt 2. RADIATION: Does the pain shoot anywhere else? (e.g., chest, back) No, Per pt 3. ONSET: When did the pain begin? (Minutes, hours or days ago) approx 1 week ago, Per pt 4. SUDDEN: Gradual or sudden onset? Gradual, Per pt 5. PATTERN Does the pain come and go, or is it constant? - If constant: Is it getting better, staying the same, or worsening? (Note: Constant means the pain never goes away completely; most serious pain is constant and it progresses) - If intermittent: How long does it last? Do you have pain now? (Note: Intermittent means the pain goes away completely between bouts) Constant, worsening, Per pt 6. SEVERITY: How bad is the pain? (e.g., Scale 1-10; mild, moderate, or severe) - MILD (1-3): doesn't interfere with normal activities, abdomen soft and not tender to touch - MODERATE (4-7): interferes with normal activities or awakens from sleep, tender to touch - SEVERE (8-10): excruciating pain, doubled over, unable to do any normal activities Sour, nauseated, gassy, cramping in ABD, 7/10, MODERATE, localized 7. RECURRENT SYMPTOM: Have you ever had this type of abdominal pain before? If so, ask: When wasthe last time? and What happened that time? No, Per pt 8. CAUSE: What do you think is causing the abdominal pain? No, Per pt 9. RELIEVING/AGGRAVATING FACTORS: What makes it better or worse? (e.g., movement, antacids, bowelmovement) Better - passing gas, worse - talking, foods, movement 10. OTHER SYMPTOMS: Has there been any vomiting, diarrhea, constipation, or urine problems? Loose stools, blood after urination x1 last night, Per pt Protocols used: ABDOMINAL PAIN - MALE-A-AH Recommendation pt to be seen w/in 4 hours. Pt verbalized understanding. Pt verbalized he is unable to be seen today b/c he has to go see his fire hydrant mechanic. Pt verbalized w/ a loud tone and increased agitation triage was a waste of time b/c he was just seen in ED yesterday but reported he was dissatisfied w/ treatment. TN tried to educate pt and inform sx could have changed and pt difficult to redirect while again speaking over TN w/ increased agitation. Closing statement provided. Pt verbalized understanding. No further questions and disconnected line. ON SORTING MACHINE FEEDER documented in this encounter Plan of Treatment Not on file documented as of this encounter Visit Diagnoses Not on filedocumented in this encounter
--- OUTSIDE RECORDS SUMMARY | 2024-09-10 03:46 | XMS_ITS | Encounter Summary ---
Author Organization [facility] Address [address] [place] [address] Care Team Providers Care Insurance Actuary Name Role Phone Nopcp, Patient Primary Care Provider Unavailabl e Reason for Visit * Reason Comments Chest Pain started this am derrick hargrove Encounter Details Date Type Department Care Team (Late st Contact Info) Description 01/01/2008 12:37 PM CDT - 01/01/2008 4:48 PM CDT Emergency ER at [facility] [address] [place] [address] VicenteTaran urena, [address] [id number] Chest Pain; Anxiety Discharge Disposition: Home or Self Care [...] Sign Reading Time Taken Comments Blood Pressure 114/72 01/01/2008 3:06 PM CDT Pulse 79 01/01/2008 3:06 PM CDT Temperature 36.7 ??C (98 ??F) 01/01/2008 12:44 PM CDT Respiratory Rate 18 01/01/2008 3:06 PM CDT Oxygen Saturation 100% 01/01/2008 3:06 PM CDT Inhaled Oxygen Concentration - - Weight 104.3 kg (230 lb) 01/01/2008 12:44 PM CDT Height 185.4 cm (6' 1 ) 01/01/2008 12:44 PM CDT Body Mass Index 30.34 01/01/2008 12:44 PM CDT documented in this encounter Discharge Instructions * Discharge Instructions* Barbara Lambert - 01/01/2008 4:59 PM CDT Anxiety and Panic Attacks Your [...] Document Re-Released: 02/21/2007 ExitCare?? Patient Information ??2007 Socialance. * Discharge Instructions* Document, Scanned - 01/01/2008 12:00 AM CDT documented in this encounter Medications at Time of Discharge Medication Sig Dispensed Refills Start Date End Date alprazolam (XANAX) 0.25 MG tablet Take 1 Tab by mouth 3 times daily as needed for Anxiety. 15 0 01/01/2008 01/06/2008 CIPRO PO Take by mouth. 06/30/2008 FLAGYL [...] script 12/05/2009 documented as of this encounter Procedure Notes * Document, Scanned - 01/01/2008 12:00 AM CDTAssociated Order(s): CARDIAC, EKG ORDER * Document, Scanned - 01/01/2008 12:00 AM CDTAssociated Order(s): CARDIAC, EKG ORDER * Document, Scanned - 01/01/2008 12:00 AM CDTAssociated Order(s): CARDIAC, EKG ORDER * Document, Scanned - 01/01/2008 12:00 AM CDTAssociated Order(s): CARDIAC, EKG ORDER * Leonor Alvarez - 01/01/2008 12:00 AM CDTAssociated Order(s): CARDIAC, EKG ORDER documented in this encounter ED Notes * Barbara Lambert - 01/01/2008 3:15 PM CDT Pt. Reports feeling sick to his stomache at this time. Will notify doc. * Barbara Lambert - 01/01/2008 3:15 PM CDT Pt. Remains on cardiac monitoring at this time. Pt. Resting on stretcher. 2nd troponin drawn and sent to lab. * Barbara Lambert - 01/01/2008 2:19 PM CDT Urinal given to pt. * Barbara Lambert - 01/01/2008 1:12 PM CDT Pt. Reports CP, SOB with some nausea that all started yesterday. Pt. Taking meds for diverticulitisat this time and wondering if that might make him feel sick. Pt. Reports that he has anxiety and heran out of his xanax and looking for a new doc in [place]. * Taran Zhang - 01/01/2008 1:08 PM CDT Chest Pain The history is provided by the patient. This is a new problem. The current episode started yesterday. The problem has been occurring intermittent. The problem has been gradually improving since onset. The pain is associated with nothing (states went off of xanax yesterday and feels like his symptoms may be from this). The pain is present in the substernal and between shoulder blades. The quality of the pain is indigestion. The pain radiates to the upper back. Change in pain location over time: none.Associated symptoms include diaphoresis and nausea. Pertinent negatives include no exertional chest pressure, no vomiting, no dizziness and no shortness of breath. He has tried antacids for the symptoms. E/M Caveat: has history af anxiety and has flight of ideas jumping from one complaint to another. History Past Medical History Diagnosis Date ??? Depression ??? Anxiety ??? Panic Attacks ??? Diverticulitis ??? GERD (Gastroesophageal Reflux Disease) Past Surgical History Procedure Date ??? Pr removal gallbladder History Social History ??? Marital Status: Single Spouse Name: N/A Number of Children: N/A ??? Years of Education: N/A Occupational History ??? Not on file. Social History Main Topics ??? Tobacco Use: Never ??? Alcohol Use: No ??? Drug Use: No ??? Sexually Active: Not on file Other Topics Concern ??? Not on file Social History Narrative ??? No narrative on file Review of Systems Constitutional: Positive for diaphoresis. Cardiovascular: Positive for chest pain. Respiratory: Is not experiencing shortness of breath. Gastrointestinal: Positive for nausea. Negative for vomiting. Neurological: Negative for dizziness. Physical Exam Nursing note and vitals reviewed. Constitutional: He is oriented and developed, nourished, and not distressed. Vital signs are normal. HENT: Head: Normocephalic and atraumatic. Right Ear: External ear normal. Left Ear: External ear normal. Nose: Nose normal. Mouth/Throat: Oropharynx is clear and moist. Eyes: Conjunctivae and extraocular motions are normal. [...] Skin is warm, dry and intact. Psychiatric: Affect normal. anxious EKG Interpretation Clinical Impression: normal EKG. Lab Interpretation No results found for this visit. Radiology Interpretation Procedures Medical Decision Making ED Plan/Course: documented in this encounter Miscellaneous Notes * Miscellaneous Scans - Document, Scanned - 01/01/2008 12:00 AM CDT documented in this encounter Plan of Treatment Not on file documented as of this encounter Procedures Procedure Name Priority Date/Time Associated Diagnosis Comments CARDIAC EKG ORDER 01/12/2008 10: 18 AM CDT CARDIAC EKG ORDER 01/12/2008 10: 18 AM CDT CARDIAC EKG ORDER 01/12/2008 10: 18 AM CDT CARDIAC EKG ORDER 01/12/2008 10: 18 AM CDT MYOGLOBIN BLOOD STAT 01/01/2008 3:10 PM CDT Unspecified Chest Pain PT PTT PANEL STAT 01/01/2008 1:35 PM CDT Unspecified Chest Pain CBC W AUTO DIFFERENTIAL STAT 01/01/2008 1:35 PM CDT Unspecified Chest Pain R/O MS PROFILE STAT 01/01/2008 1:35 PM CDT Unspecified Chest Pain COMPREHENSIVE METABOLIC PANEL STAT 01/01/2008 1:35 PM CDT Unspecified Chest Pain XR CHEST 1VW PORTABLE STAT 01/01/2008 1:23 PM CDT Chest Pain documented in this encounter Results * CARDIAC, EKG ORDER (01/12/2008 10:18 AM CDT) Narrative 01/12/2008 10:18 AM CDT Ordered by an unspecified provider. Transcriptions Document, Scanned - 01/01/2008 12:00 AM CDT Scanned Document CARDIAC SERVICES ORD ERABLES * CARDIAC, EKG ORDER (01/12/2008 10:18 AM CDT) Narrative 01/12/2008 10:18 AM CDT Ordered by an unspecified provider. Transcriptions Document, Scanned - 01/01/2008 12:00 AM CDT Scanned Document CARDIAC SERVICES ORD ERABLES * CARDIAC, EKG ORDER (01/12/2008 10:18 AM CDT) Narrative 01/12/2008 10:18 AM CDT Ordered by an unspecified provider. Transcriptions Document, Scanned - 01/01/2008 12:00 AM CDT Scanned Document CARDIAC SERVICES ORD ERABLES * CARDIAC, EKG ORDER (01/12/2008 10:18 AM CDT) Narrative Procedure Note Document, Scanned - 01/01/2008 12:00 AM CDT Transcriptions Document, Scanned - 01/01/2008 12:00 AM CDT Scanned Document CARDIAC SERVICES ORD ERABLES * (ABNORMAL) MYOGLOBIN BLOOD (01/01/2008 3:10 PM CDT) Myoglobin 50.3(H) <50.0 ng/mL [facility] SERUM OR PLASMA SPECIMEN / Unknown 01/01/2008 3:10 PM CDT 01/01/2008 3:13 PM CDT Taran Zhang DO LAB - CHEMISTRY ORDE [employer] Performing Organization Address City/[facility] Co de Phone Number [address] [address] * (ABNORMAL) R/O MS PROFILE (01/01/2008 1:35 PM CDT) Myoglobin 57.6(H) <50.0 ng/mL [facility] Troponin I <0.10 SEE BELOW ng/mL [facility] Comment: <0.10 Normal 0.10-0.99 Indeterminate >= 1.0 Abnormal Comment MS Baseline MS Protocol Abnormal. TNI Protocol started. [facility] SERUM OR PLASMA SPECIMEN / Unknown 01/01/2008 1:35 PM CDT 01/01/2008 2:06 PM CDT Taran Zhang DO LAB - CHEMISTRY ORDElodia [employer] Performing Organization Address City/[facility]/ZIP Co de Phone Number [address] [address] * PT PTT PANEL (01/01/2008 1:35 PM CDT) PT 10.0 9.3 - 11.4 seconds [facility] INR 1.0 SEE BELOW [facility] Comment: 0.9-1.2 Normal 2.0-3.0 Therapeutic 2.5-3.5 High Risk PTT 29.6 24.0 - 32.0 seconds [facility] BLOOD SPECIMEN / Unknown 01/01/2008 1:35 PM CDT 01/01/2008 2:07 PM CDT Taran Coon Vicente DO LAB - COAGULATION OR DERABLES Performing Organization Address City/State/[facility] Co de Phone Number [address] [address] * (ABNORMAL) COMPREHENSIVE METABOLIC PANEL (01/01/2008 1:35 PM CDT) Glucose 75 75-110 Fasting mg/dL [facility] BUN 9 9 - 21 mg/dL [facility] Creatinine 1.0 0.7 - 1.5 mg/dL [facility] BUN/Creatinine Ratio 9.3 [facility] Sodium 142 137 - 145 mEq/L [facility] Potassium 4.3 3.6 - 5.0 mEq/L [facility] Chloride 100 98 - 107 mEq/L [facility] CO2 29 22 - 31 mEq/L [facility] Anion Gap 12 [facility] Calcium 9.8 8.4 - 11.5 mg/dL [facility] Alkaline Phosphatase 56 38 - 126 U/L [facility] ALT 63(H) 7 - 56 U/L [facility] AST 50(H) 5 - 40 U/L [facility] Protein Total 8.4(H) 6.3 - 8.2 gm/dl [facility] Albumin 4.9 3.9 - 5.0 gm/dl [facility] Bilirubin Total 1.4(H) 0.2 - 1.3 mg/dL [facility] eGFR by MDRD >60 SEE BELOW mL/min/1.73 m2 [facility] Comment: >60 Normal Chronic Disease <60 Renal Failure <15 BLOOD SPECIMEN / Unknown 01/01/2008 1:35 PM CDT 01/01/2008 2:07 PM CDT Taran Zhang DO LAB - CHEMISTRY [place] [facility] [address] [place] [address] * (ABNORMAL) CBC W AUTO DIFFERENTIAL (01/01/2008 1:35 PM CDT) WBC 8.7 4.2 - 10.2 K/CUMM [facility] RBC 5.97(H) 4.10 - 5.70 M/CUMM [facility] Hemoglobin 16.3 12.6 - 17.4 gm/dl [facility] Hematocrit 47.6 37 - 52 % [facility] MCV 79.7(L) 80 - 99 fl [facility] MCH 27.3(L) 27.5 - 33.1 pg [facility] MCHC 34.2 32 - 36 gm/dl [facility] RDW 14.3 11.5 - 14.5 % [facility] Platelet Count 162 150 - 400 K/CUMM [facility] Granulocytes % 69.4 45 - 73 % [facility] Lymphocytes % 22.2 22 - 41 % [facility] Monocytes % 6.7 2 - 13 % [facility] Eosinophils % 1.5 0 - 6 % [facility] Basophils % 0.2 0 - 2 % [facility] Granulocytes Absolute 6.1 1.7 - 7.7 [facility] Lymphocytes Absolute 1.9 1.0 - 3.0 [facility] Monocytes Absolute 0.6 0.2 - 1.0 [facility] Eosinophils Absolute 0.1 0.0 - 0.4 [facility] Basophils Absolute 0.0 0.0 - 0.1 [facility] Comment Manual Diff Automated Diff Performed [facility] BLOOD SPECIMEN / Unknown 01/01/2008 1:35 PM CDT 01/01/2008 2:07 PM CDT Taran Zhang DO LAB - HEMATOLOGY ORD ERABLES [address] [address] * CHEST XRAY - PORTABLE (01/01/2008 1:23 [...] pneumothorax. Bones are unremarkable. Procedure Note Addy Bonds MD - 01/02/2008 HISTORY: Chest pain Chest one view portable 01/01/08 FINDINGS: The heart size and mediastinum are normal. The lungs are clear. There is no pleural effusion or pneumothorax. Bones are unremarkable. IMPRESSION Impression: Normal chest, no acute cardiopulmonary abnormality. Taran Zhang DO DIAGNOSTIC IMAGING O RDERAMONIE documented in this encounter Visit Diagnoses Diagnosis Chest pain Chest pain, unspecified Anxiety Anxiety state, unspecified documented in this encounter Administered Medications Inactive Administered Medications - up to 3 most recent administrations Medication Order MAR Action Action Date Dose Rate Site alprazolam (XANAX) tablet 1 mg 1 mg, Oral, ONCE, 1 dose, On 01/01/08 at 1315 $ Given 01/01/2008 1:31 PM CDT 1 mg ALPRAZOLAM 0.25 MG PO TABS 1 dose, Starting on 01/01/08 at 1327, Until 01/01/08 at 1331, BARBARA LAMBERT: Cabinet Override ASPIRIN 81 MG PO CHEW 1 dose, Starting on 01/01/08 at 1327, Until 01/01/08 at 1330, BARBARA LAMBERT: Cabinet Override aspirin chew tablet 324 mg 324 mg, Oral, ONCE, 1 dose, On 01/01/08 at 1315 $ Given 01/01/2008 1:30 PM CDT 324 mg NITRO-BID 2 % TD OINT 1 dose, Starting on 01/01/08 at 1327, Until 01/01/08 at 1334, BARBARA LAMBERT: Cabinet Override nitroglycerin (NITRO-BID) ointment 1 Inch 1 inch, Topical, ONCE, 1 dose, On 01/01/08 at 1315, Apply 1 inch $ Given 01/01/2008 1:34 PM CDT 1 inch ONDANSETRON HCL 2 MG/ML IV SOLN 1 dose, Starting on 01/01/08 at 1328, Until 01/01/08 at 1354, BARBARA LAMBERT: Cabinet Override $ Given 01/01/2008 1:54 PM CDT 2 mg promethazine (PHENERGAN) injection 12.5 mg 12.5 mg, Intravenous, ONCE, 1 dose, On 01/01/08 at 1530 $ Given 01/01/2008 3:25 PM CDT 12.5 mg PROMETHAZINE HCL 25 MG/ML IJ SOLN 1 dose, Starting on 01/01/08 at 1525, Until 01/01/08 at 1525, BARBARA LAMBERT: Cabinet Override documented in this encounter Active and Recently Administered Medications Times are shown in CDT. Scheduled Medication Order 12/30/2007 12/31/2007 01/01/2008 alprazolam (XANAX) tablet 1 mg (COMPLETED) 1 mg, Oral, ONCE, 1 dose, On 01/01/08 at 1315 1331 ($ Given - Prov ider: Barbara Lambert) aspirin chew tablet 324 mg (COMPLETED) 324 mg, Oral, ONCE, 1 dose, On 01/01/08 at 1315 1330 ($ Given - Prov ider: Barbara Lambert) nitroglycerin (NITRO-BID) ointment 1 Inch (COMPLETED) 1 inch, Topical, ONCE, 1 dose, On 01/01/08 at 1315, Apply 1 inch 1334 ($ Given - Prov ider: Barbara Lambert) promethazine (PHENERGAN) injection 12.5 mg (COMPLETED) 12.5 mg, Intravenous, ONCE, 1 dose, On 01/01/08 at 1530 1525 ($ Given - Prov ider: Barbara Lambert) No Frequency Medication Order 12/30/2007 12/31/2007 01/01/2008 ONDANSETRON HCL 2 MG/ML IV SOLN (COMPLETED) 1 dose, Starting on 01/01/08 at 1328, Until 01/01/08 at 1354, BARBARA LAMBERT: Cabinet Override 1354 ($ Given - Prov ider: Barbara Lambert) documented in this encounter Care Teams Insurance Actuary Relationship Specialty Start Date End Date Nopcp, Patient PCP - General 01/01/08 03/26/08 documented as of this encounter
--- OUTSIDE RECORDS SUMMARY | 2024-09-10 03:46 | XMS_ITS | Encounter Summary ---
Author Organization [facility] Address [address] [place] [place] [address] Care Team Providers Care Issue Clerk Name Role Phone Unavailable Primary Care Provider Unavailabl e Encounter Details Date Type Department Care Team (Latest Contact Info) Description 11/03/2007 11:02 PM RECREATIONAL LEADER - 11/04/2007 12:25 AM [facility] Hospital Encounter [facility] EMERGENC[place] [address] Nopcp, Patient Emergency Medicine Discharge Disposition: Home or Self Care Social History Tobacco Use Types Packs/Day Years Used Date Smoking Tobacco: Never Assessed Sex and Gender Information Value Date Recorded Sex Assigned at Not on file Gender Identity Not on file Sexual Orientation Not on file documented as of this encounter Plan of Treatment Not on file documented as of this encounter Visit Diagnoses Not on filedocumented in this encounter
--- OUTSIDE RECORDS SUMMARY | 2024-09-10 03:46 | XMS_ITS | Encounter Summary ---
Author Organization [facility] Address [address] [place] [address] Care Team Providers Care Reception Name Role Phone Unavailable Primary Care Provider Unavailabl e Encounter Details Date Type Department Care Team (Latest Contact Info) Description 12/07/2007 1:05 AM CDT - 12/07/2007 1:55 AM CDT Hospital Encounter ER at [address] [address] Raza Veras MD [address] [facility] [address] [place] [id number] Nopcp, Patient Discharge Disposition: Home or Self Care Social [...]
--- OUTSIDE RECORDS SUMMARY | 2024-09-10 03:47 | XMS_ITS | Encounter Summary ---
Author Organization [facility] Address [address] [place] [address]. [place], [place] [id number] [place] [id number] Care Team Providers Care Copy Reader Name Role Phone None, Provider MD Primary Care Provider Unavaila ble Reason for Visit * Reason Comments Abdominal Pain Encounter Details Date Type Department Care Team (Late st Contact Info) Description 11/10/2022 5:37 PM CREDIT OR LOANS OFFICER - 11/10/2022 6:00 PM CREDIT OR LOANS OFFICER Emergency [facility] [place] [address] Abdominal Pain Discharge Disposition: Left Against Medical Advice Social History Tobacco Use Types Packs/Day Years Used Date Smoking Tobacco: Former Smokeless Tobacco: Never Alcohol Use Standard Drinks/Week Comments No 0 (1 standard drink = 0.6 oz pur e alcohol) Sex and Gender Information Value Date Recorded Sex Assigned at Not on file Legal Sex Male 10:39 PM CDT Gender Identity Not on file Sexual Orientation Not on file COVID-19 Exposure Response Date Recorded In the last 10 days, have yo u been in contact with someone who was confirmed or suspected to have Coronavirus/COVID-19? No / Unsure 11/10/2022 4:06 PM CREDIT OR LOANS OFFICER documented as of this encounter Last Filed Vital Signs Vital Sign Reading Time Taken Comments Blood Pressure 161/98 11/10/2022 4:10 PM CREDIT OR LOANS OFFICER Pulse 95 11/10/2022 4:10 PM CREDIT OR LOANS OFFICER Temperature 36.2 ??C (97.2 ??F) 11/10/2022 4:10 PM CS T Respiratory Rate 20 11/10/2022 4:10 PM CREDIT OR LOANS OFFICER Oxygen Saturation 100% 11/10/2022 4:10 PM CREDIT OR LOANS OFFICER Inhaled Oxygen Concentration - - Weight 110 kg (242 lb 8.1 oz) 11/10/2022 4:10 PM CREDIT OR LOANS OFFICER Height 188 cm (6' 2 ) 11/10/2022 4:10 PM CREDIT OR LOANS OFFICER Body Mass Index 31.14 11/10/2022 4:10 PM CREDIT OR LOANS OFFICER documented in this encounter Medications at Time of Discharge ALPRAZolam 2 MG tablet Take 1 tablet (2 mg total) by mouth 3 (three) times daily as needed (anxiety). 7 tablet 01/05/2020 diphenhydrAMINE 25 MG capsule Take 1 capsule (25 mg total) by mouth every 6 (six) hours as needed for Itching. simethicone (GAS-X) 80 MG chewable tablet Chew 80 mg by mouth every 6 (six) hours as needed for Flatulence. atenolol (TENORMIN) 100 MG tablet Take 1 tablet (100 mg total) by mouth daily. 30 tablet 08/08/2022 4 fluticasone propionate 50 MCG/ACT nasal spray 2 sprays by Nasal route daily. 12/09/2020 4 meclizine 25 MG tablet Take 25 mg by mouth 3 (three) times daily as needed. 4 Neomycin-Bacitra chalino Zn-Polymyx [phone] Ointment Apply 1 Application to eye 3 (three) times daily. 3 g 12/21/2020 4 olopatadine 0.1 % ophthalmic solution Place 1 drop into both eyes 2 (two) times daily. 5 mL 08/25/2019 4 omeprazole 40 MG capsule Take 1 capsule (40 mg total) by mouth daily. 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 Pt states last normal BM was 3 months ago. Has tried OTC constipation remedies x 3 weeks with no improvement. IT OR LOANS OFFICER * Ramila Phillips PA-C - 11/10/2022 4:06 PM CSTSummary: abdominal pain [place], [place] EMERGENCY DEPARTMENT ENCOUNTER Medical Screening Examination 11/10/22 5:00 PM Chief Complaint : Abdominal Pain HPI : Carlos Mcgee is a 52-year-old male who presents c/o abdominal pain Vital Signs: Filed Vitals: 11/10/22 1610 BP: (!) 161/98 Pulse: 95 Resp: 20 Temp: 97.2 ??F (36.2 ??C) TempSrc: Temporal SpO2: 100% Weight: 110 kg (242 lb 8.1 oz) Height: 6' 2 (1.88 m) Physical exam: A brief physical exam was completed to facilitate/expedite patient care. Rendon findings include: stable Plan: labs. Imaging as needed RAMILA PHILLIPS PA-C 11/10/2022 Ramila Phillips PA-C 11/10/22 1700 Cosigned by Daniel Donnelly MD at 11/10/2022 9:50 PM CREDIT OR LOANS OFFICER IT OR LOANS OFFICER IT OR LOANS OFFICER documented in this encounter Plan of Treatment Not on file documented as of this encounter Visit Diagnoses Not on filedocumented in this encounter Care Teams Copy Reader Relationship Specialty Start Date End Date None, Provider, PCP - General 12/31/19 documented as of this encounter
--- OUTSIDE RECORDS SUMMARY | 2024-09-10 03:47 | XMS_ITS | Encounter Summary ---
Author Organization [facility] Address [address] [place] [address]. [place], [place] [id number] [place] [address] Care Team Providers Care Quality Tester Name Role Phone None, Provider Primary Care Provider Unavaila ble Reason for Visit * Reason Comments Refill Request Encounter Details Date Type Department Care Team (Late st Contact Info) Description 08/08/2022 9:13 AM STUDIO RECEPTIONIST - 08/08/2022 9:54 AM STUDIO RECEPTIONIST Hospital Encounter [facility] [address] [place] [address] [phone] Reggie Meza MD [address] [place] [address] [place] [id number] Refill Request Discharge Disposition: Home or Self Care (Routine Discharge) Social History Tobacco Use Types Packs/Day Years Used Date Smoking Tobacco: Former Smokeless Tobacco: Never Tobacco Cessation:Counseling Given: Not Answered Alcohol Use Standard Drinks/Week Comments No 0 [...] suspected to have Coronavirus/COVID-19? No / Unsure 08/08/2022 8:49 AM STUDIO RECEPTIONIST documented as of this encounter Last Filed Vital Signs Vital Sign Reading Time Taken Comments Blood Pressure 189/95 08/08/2022 9:14 AM STUDIO RECEPTIONIST Pulse 73 08/08/2022 9:14 AM STUDIO RECEPTIONIST Temperature 36.7 ??C (98 ??F) 08/08/2022 9:14 AM STUDIO RECEPTIONIST Respiratory Rate 18 08/08/2022 9:14 AM STUDIO RECEPTIONIST Oxygen Saturation 100% 08/08/2022 9:14 AM STUDIO RECEPTIONIST Inhaled Oxygen Concentration - - Weight 104.3 kg (230 lb) 08/08/2022 9:14 AM STUDIO RECEPTIONIST Height 185.4 cm (6' 1 ) 08/08/2022 9:14 AM STUDIO RECEPTIONIST Body Mass Index 30.34 08/08/2022 9:14 AM STUDIO RECEPTIONIST documented in this encounter Discharge Instructions * Attachments The following attachments cannot be sent through Care Everywhere. * Low Salt Diet (Sinhala) documented in this encounter Medications at Time [...] 6 (six) hours as needed for Flatulence. fluticasone propionate 50 MCG/ACT nasal spray 2 sprays by Nasal route daily. 12/09/2020 4 meclizine 25 MG tablet Take 25 mg by mouth 3 (three) times daily as needed. 4 Neomycin-Bacitra chalino Zn-Polymyx [id number] Ointment Apply 1 Application to eye 3 (three) times daily. 3 g 12/21/2020 4 olopatadine 0.1 % ophthalmic solution Place 1 drop into both eyes 2 (two) times daily. 5 mL 08/25/2019 4 omeprazole 40 MG capsule Take 1 capsule (40 mg total) by mouth daily. 4 documented as of this encounter ED Notes * Alexandria Sexton RN - 08/08/2022 9:17 AM CST PT TO [facility] WITH FOR MED REFILLS. PT STATED HE HAS BEEN FIRED BY HIS PCP AND PSYCHIATRIST AND WANTS REFILLS ON HIS ANXIETY AND BLOOD PRESSURE MEDS. FLIGHT OF IDEAS IN TRIAGE. IO RECEPTIONIST * Reggie Meza MD - 08/08/2022 9:02 AM CST [facility] Urgent [facility] [place], [place] HISTORICAL INFORMATION Primary Care Doctor: Provider MD Ayaka Patient information was obtained primarily from the patient, nursing notes. History/Exam limitations: None Provider at Bedside Date/Time Event User Comments 08/08/22 5429 Provider at Bedside Assessing Patient REGGIE MEZA -- CHIEF COMPLAINT Refill Request Chief Complaint Patient presents with ??? Refill Request HPI Carlos Mcgee is a 52-year-old male who presents with complaints that he has been fired by multiple PCP and psychiatrist and wants refills of his medications. Pt has history of RAKESH, MDD. PAST MEDICAL HISTORY Past Medical History: Diagnosis Date ??? Anxiety ??? Benign carcinoid tumor of sigmoid colon ??? Depressed ??? Diabetes mellitus (CMS/HCC) type 2 ??? Heart attack (CMS/HCC) ??? Hypertension SURGICAL HISTORY Past Surgical History: Procedure Laterality Date ??? CARDIAC CATHETERIZATION ??? CHOLECYSTECTOMY ??? COLONOSCOPY ??? EGD CURRENT MEDICATIONS No current facility-administered medications for this encounter. Current Outpatient Medications: ??? atenolol (TENORMIN) 100 MG tablet, Take 1 tablet (100 mg total) by mouth daily., Disp: 30 tablet, Rfl: 0 ??? ALPRAZolam 2 MG tablet, Take 1 tablet (2 mg total) by mouth 3 (three) times daily as needed (anxiety)., Disp: 7 tablet, Rfl: 0 ??? diphenhydrAMINE 25 MG capsule, Take 25 mg by mouth every 6 (six) hours as needed for Itching., Disp: , Rfl: ??? fluticasone propionate 50 MCG/ACT nasal spray, 2 sprays by Nasal route daily., Disp: , Rfl: ??? meclizine 25 MG tablet, Take 25 mg by mouth 3 (three) times daily as needed., Disp: , Rfl: ??? Neomycin-Bacitracin Zn-Polymyx [id number] Ointment, Apply 1 Application to eye 3 (three) times daily., Disp: 3 g, Rfl: 0 ??? olopatadine 0.1 % ophthalmic solution, Place 1 drop into both eyes 2 (two) times daily., Disp: 5 mL, Rfl: 0 ??? omeprazole 40 MG capsule, Take 40 mg by mouth daily., Disp: , Rfl: ??? simethicone (GAS-X) 80 MG chewable tablet, Chew 80 mg by mouth every 6 (six) hours as needed for Flatulence., Disp: , Rfl: ALLERGIES Allergies Allergen Reactions ??? Clindamycin Shortness of Breath ??? Elemental Sulfur Hives and Shortness of Breath ??? Iodinated Diagnostic Agents Hallucinations and Hives IV contrast dye and drink ??? Iodine Hives and Shortness of Breath ??? Lidocaine Viscous Hcl Shortness of Breath ??? Losartan Angioedema Swollen lips Swollen lips ??? Maalox [Calcium Carbonate Antacid] Shortness of Breath ??? Pepcid [Famotidine] Shortness of Breath Iv pepcid only ??? Sulfa Antibiotics Hives ??? Sulfasalazine Shortness of Breath ??? Carvedilol Hives ??? Clonazepam Dizziness ??? Flavoxate Hives ??? Nebivolol Swelling lips lips ??? Olanzapine Hallucinations ??? Barium Other (see comment) ??? Cephalexin Hives and Unknown ??? Doxycycline Other (see comment) and Unknown ??? Glimepiride Hives ??? Januvia [Sitagliptin] Chest pressure ??? Levofloxacin Unknown ??? Lidocaine Angioedema ??? Lisinopril Unknown ??? Metformin Chest pressure ??? Morphine Hallucinations ??? Oxycodone Hives ??? Sulfamethoxazole-Trimethoprim Hives and Unknown ??? Trimethoprim Other (see comment) ??? Zithromax [Azithromycin] Hives ??? Buspirone Dizziness ??? Clonidine Anxiety ??? Dicyclomine Anxiety ??? Hydralazine Other (see comment) ??? Ketorolac Nausea Only ??? Ketorolac Tromethamine GI Upset ??? Levetiracetam Other (see comment) hallucinaton hallucinaton ??? Levofloxacin Other (see comment) and Hives ??? Ondansetron Unknown ??? Paxil [Paroxetine] Anxiety FAMILY HISTORY Family History Problem Relation Name Age of Onset ??? Cancer Mother ??? Stroke Father SOCIAL HISTORY Social History Socioeconomic History ??? Marital status: Tobacco Use ??? Smoking status: Former ??? Smokeless tobacco: Never Vaping Use ??? Vaping Use: Never used Substance and Sexual Activity ??? Alcohol use: No ??? Drug use: No Review of Systems Constitutional: Negative for chills and fever. HENT: Negative for congestion and sore throat. Eyes: Negative for pain and discharge. Respiratory: Negative for cough, shortness of breath and wheezing. Cardiovascular: Negative for chest pain and palpitations. Gastrointestinal: Negative for abdominal pain, diarrhea, nausea and vomiting. Genitourinary: Negative for dysuria and hematuria. Musculoskeletal: Negative for neck pain and neck stiffness. Skin: Negative for rash and wound. Neurological: Negative for seizures, syncope and headaches. Psychiatric/Behavioral: Negative for agitation and confusion. Physical Exam VITAL SIGNS: Filed Vitals: 08/08/22 0914 BP: (!) 189/95 Pulse: 73 Resp: 18 Temp: 98 ??F (36.7 ??C) TempSrc: Skin SpO2: 100% Weight: 104.3 kg (230 lb) Height: 6' 1 (1.854 m) Physical Exam Vitals and nursing note reviewed. Constitutional: General: He is not in acute distress. Appearance: Normal appearance. He is not ill-appearing, toxic-appearing or diaphoretic. HENT: Head: Normocephalic and atraumatic. Right Ear: External ear normal. Left Ear: External ear normal. Nose: Nose normal. Eyes: General: No scleral icterus. Right eye: No discharge. Left eye: No discharge. Extraocular Movements: Extraocular movements intact. Conjunctiva/sclera: Conjunctivae normal. Cardiovascular: Rate and Rhythm: Normal rate and regular rhythm. Heart sounds: No murmur heard. Pulmonary: Effort: Pulmonary effort is normal. No respiratory distress. Breath sounds: Normal breath sounds. No stridor. No wheezing, rhonchi or rales. Abdominal: General: Bowel sounds are normal. Palpations: Abdomen is soft. Tenderness: There is no abdominal tenderness. Musculoskeletal: General: No deformity or signs of injury. Normal range of motion. Cervical back: Normal range of motion and neck supple. Skin: General: Skin is warm and dry. Neurological: General: No focal deficit present. Mental Status: He is alert and oriented to person, place, and time. Psychiatric: Mood and Affect: Mood normal. Behavior: Behavior normal. EKG (interpreted by ED provider) No results found for this visit on 08/08/22. LABORATORY Labs Reviewed - No data to display RADIOLOGY No orders to display PROCEDURES Procedures MDM Pt confrontational and abrasive in office. Pt threatened law suit. Pt has drug seeking behavior. Ptcounseled needs to follow up with primary care for management of chronic conditions. Refill atenolol given for HTN. Counseled to contact psychiatrist about xanax refill and would not be prescribing. Per [place] PDMP pt should have run out of his Xanax 2 weeks prior. Offered vistaril PRN and refused. Counseled on need for medication compliance. I have discussed today's findings with the patient and provided information regarding the likely diagnosis. The patient has been given information regarding their treatment, follow up and concerning symptoms for which they should seek urgent or emergent attention. I have expressed the the importance of seeking attention should there be any new, or worsening symptoms or persistence of their condition. The patient is stable at discharge and has verbalized understanding of these instructions. Impression/Disposition SNOMED CT(R) 1. Benign essential HTN BENIGN ESSENTIAL HYPERTENSION 2. RAKESH (generalized anxiety disorder) GENERALIZED ANXIETY DISORDER 3. Mild episode of recurrent major depressive disorder (CMS/HCC) RECURRENT MAJOR DEPRESSIVE EPISODES, MILD 4. Drug-seeking behavior DRUG SEEKING BEHAVIOR Disposition: Discharge Medications - No data to display Current Discharge Medication List MD Reggie Vaughn MD 08/08/22 0955 IO RECEPTIONIST documented in this encounter Plan of Treatment Not on file documented as of this encounter Visit Diagnoses Diagnosis Benign essential HTN- Primary Essential hypertension, benign RAKESH (generalized anxiety disorder) Generalized anxiety disorder Mild episode of recurrent major depressive disorder (CMS/HCC) Drug-seeking behavior Other, mixed, or unspecified nondependent drug abuse, unspecified documented in this encounter Care Teams Quality Tester Relationship Specialty Start Date End Date None, Provider, PCP - General 12/31/19 documented as of this encounter
--- OUTSIDE RECORDS SUMMARY | 2024-09-10 03:47 | XMS_ITS | Encounter Summary ---
Author Organization [facility] Address [address] [place] [address]. [place], [place] [id number] [place], [place] [id number] Care Team Providers Care Towel Cabinet Repairer Name Role Phone None, Provider Primary Care Provider Alisson oliva Encounter Details Date Type Department Care Team (Late st Contact Info) Description 09/20/2022 7:09 PM SHEAR OPERATOR AUTOMATIC - 09/20/2022 7:35 PM SHEAR OPERATOR AUTOMATIC [facility] [place] [address] Zenaida Olvera NP [address] [address] Discharge Disposition: Home or Self Care (Routine [...] was confirmed or suspected to have Coronavirus/COVID-19? Yes 09/20/2022 6:03 PM SHEAR OPERATOR AUTOMATIC documented as of this encounter Last Filed Vital Signs Vital Sign Reading Time Taken Comments Blood Pressure 175/100 09/20/2022 6:11 PM SHEAR OPERATOR AUTOMATIC Pulse 65 09/20/2022 6:11 PM SHEAR OPERATOR AUTOMATIC Temperature 35.3 ??C (95.5 ??F) 09/20/2022 6:18 PM CS T Respiratory Rate 18 09/20/2022 6:11 PM SHEAR OPERATOR AUTOMATIC Oxygen Saturation 99% 09/20/2022 6:11 PM SHEAR OPERATOR AUTOMATIC Inhaled Oxygen Concentration - - Weight 104 kg (229 lb 4.5 oz) 09/20/2022 6:11 PM SHEAR OPERATOR AUTOMATIC Height 185.4 cm (6' 1 ) 09/20/2022 6:11 PM SHEAR OPERATOR AUTOMATIC Body Mass Index 30.25 09/20/2022 6:11 PM SHEAR OPERATOR AUTOMATIC documented in this encounter Discharge Instructions * Attachments The following attachments cannot be sent through Care Everywhere. * How to Read a Prescription Drug Label (Vietnamese) documented in this encounter Medications at Time of Discharge ALPRAZolam 2 MG tablet Take 1 tablet (2 mg total) by mouth 3 (three) times daily as needed (anxiety). 7 tablet 01/05/2020 diphenhydrAMINE 25 MG capsule Take 1 capsule (25 mg total) by mouth every 6 (six) hours as needed for Itching. hydrOXYzine (ATARAX) 25 MG tablet Take 1-2 tablets (25-50 mg total) by mouth every 6 (six) hours as needed for Itching or Anxiety. 40 tablet 09/20/2022 simethicone (GAS-X) 80 MG chewable tablet Chew [...] daily as needed. 4 Neomycin-Bacitra chalino Zn-Polymyx 3.5-400-15589 Ointment Apply 1 Application to eye 3 (three) times daily. 3 g 12/21/2020 4 olopatadine 0.1 % ophthalmic solution Place 1 drop into both eyes 2 (two) times daily. 5 mL 08/25/2019 4 omeprazole 40 MG capsule Take 1 capsule (40 mg total) by mouth daily. 4 documented as of this encounter ED Notes * Dax Fajardo RN - 09/20/2022 7:29 PM CST Went into room to discharge Pt. Pt refused to sign discharge instructions stating, that medicine(hydroxyzine) does not work . Zenaida COLLIER came to talk to PT.Pt very argumentative with AMIRA about medication prescriptions. Pt instructed to contact his doctor to fill his medication. Pt states, I had covid and my old doctor already sent my records to the new doctor . Pt left without taking discharge instructions and did not sign for discharge. R OPERATOR AUTOMATIC R OPERATOR AUTOMATIC R OPERATOR AUTOMATIC * Zenaida Olvera, VENTURA - 09/20/2022 6:25 PM CST Chief Complaint No chief complaint on file. History of Present Illness History given by Patient with a c/o that he is out of his psych meds but has no documentation or bottles and gets his meds filled at a '[facility] and pop' that is not open tonight. He states he has transferred his care from one doctor to another/ psych in a medical arts building in [facility], but got COVID 7 days ago and could not keep his appt this week, has one scheduled for Wednesday. States he did not call the office or the pharmacy for his meds . He also has a knot on the right side of this jaw for a few days. He currently does not have a PCP. Medical History ALLERGIES: Allergies Allergen Reactions ??? Clindamycin Shortness of Breath ??? Elemental Sulfur Hives and Shortness of Breath ??? Iodinated Contrast Media Hallucinations and Hives IV contrast dye and [...] ??? Ondansetron Unknown ??? Paxil [Paroxetine] Anxiety MEDICATIONS: Prior to Admission medications Medication Sig Start Date End Date Taking? Authorizing Provider hydrOXYzine (ATARAX) 25 MG tablet Take 1-2 tablets (25-50 mg total) by mouth every 6 (six) hours asneeded for Itching or Anxiety. 09/20/22 09/30/22 Yes Zenaida Olvera NP ALPRAZolam 2 MG tablet Take 1 tablet (2 mg total) by mouth 3 (three) times daily as needed (anxiety). 01/05/20 Ric Curran MD atenolol (TENORMIN) 100 MG tablet Take 1 tablet (100 mg total) by mouth daily. 08/08/22 Reggie Dowd MD diphenhydrAMINE 25 MG capsule Take 25 mg by mouth every 6 (six) hours as needed for Itching. Doc [facility] fluticasone propionate 50 MCG/ACT nasal spray 2 sprays by Nasal route daily. 12/09/20 [facility] meclizine 25 MG tablet Take 25 mg by mouth 3 (three) times daily as needed. Doc [facility] Neomycin-Bacitracin Zn-Polymyx 3.5-400-40039 Ointment Apply 1 Application to eye 3 (three) times daily. 12/21/20 Sarahy Headley MD olopatadine 0.1 % ophthalmic solution Place 1 drop into both eyes 2 (two) times daily. 08/25/19 Zenaida Olvera NP omeprazole 40 MG capsule Take 40 mg by mouth daily. Doc [facility] simethicone (GAS-X) 80 MG chewable tablet Chew 80 mg by mouth every 6 (six) hours as needed for Flatulence. Doc [facility] PAST MEDICAL HISTORY: Past Medical History: Diagnosis Date ??? Anxiety ??? Benign carcinoid tumor of sigmoid colon ??? Depressed ??? Diabetes mellitus (CMS/HCC) type 2 ??? Heart attack (CMS/HCC) ??? Hypertension PAST SURGICAL HISTORY: Past Surgical History: Procedure Laterality Date ??? CARDIAC CATHETERIZATION ??? CHOLECYSTECTOMY ??? COLONOSCOPY ??? EGD FAMILY HISTORY: Family History Problem Relation Name Age of Onset ??? Cancer Mother ??? Stroke Father SOCIAL HISTORY: Social History Tobacco Use ??? Smoking status: Former ??? Smokeless tobacco: Never Vaping Use ??? Vaping Use: Never used Substance Use Topics ??? Alcohol use: No ??? Drug use: No Review of Systems Review of Systems HENT: Negative for ear discharge and ear pain. Respiratory: Negative for shortness of breath. Skin: Negative for rash. Psychiatric/Behavioral: Negative for self-injury and suicidal ideas. All other systems reviewed and are negative. Physical Exam Vital 24 Hour Range Most Recent Value Temperature Temp Min: 95.5 ??F (35.3 ??C) Max: 95.5 ??F (35.3 ??C) 95.5 ??F (35.3 ??C) Pulse Pulse Min: 65 Max: 65 65 Respiratory Resp Min: 18 Max: 18 18 Blood Pressure BP Min: 175/100 Max: 175/100 (!) 175/100 Pulse Oximetry SpO2 Min: 99 % Max: 99 % 99 % O2 No data recorded Vital Most Recent Value First Value Weight 104 kg (229 lb 4.5 oz) Weight: 104 kg (229 lb 4.5 oz) Height 6' 1 (185.4 cm) Height: 6' 1 (185.4 cm) BMI (!) 30.26 N/A Physical Exam Constitutional: General: He is not in acute distress. Appearance: He is well-developed. HENT: Head: Normocephalic. Right Ear: Tympanic membrane normal. Ears: Comments: 1 cm rubbery nodule to right anterior ear. Freely moveable. Non tender and no erythema. Eyes: Pupils: Pupils are equal, round, and reactive to light. Cardiovascular: Rate and Rhythm: Normal rate and regular rhythm. Pulmonary: Effort: Pulmonary effort is normal. Skin: General: Skin is warm and dry. Neurological: Mental Status: He is alert and oriented to person, place, and time. Diagnostic Studies / Procedures ELECTROCARDIOGRAMS: No results found for this visit on 09/20/22. LABORATORY STUDIES: No results found for this visit on 09/20/22. IMAGING STUDIES: No orders to display Mer[employer]-based Incentive Payment System (MIPS) Quality Measure/Emergency Medicine Qualified Clinical Data Registry (E-CPR) Data: Not applicable ED Course / Medical Decision Making Did discuss my concerns that the medication he mentions and what is prescribed is not filled in thetime frame. I cannot prove what he is taking and these are medications that his overseeing providercan fill. I have offered to fill hydroxyzine as a safe alternative to bridge him over night until he can callhis pharmacy or doctor in the am but he does not want that medication. Wants the script removed from his med list but advised it will only show in my note if he does not get it filled. He becomes persistent , 'but' and wants clarification at why is it his fault that he got COVID and could not keep his appt. Explained again that the covid policy for an office is likely reasonable but these medications must be managed by his provided. Review of the chart/system reveals that he presents for medication refills with similar c/o that hehas either been fired from his doctor or he fires his doctor. Have offered him a safe/ suitable alternative until he can make arrangements. He is not satisfied with this plan. Recommended he find his bottles and return for safe medication prescribing. Clinical Impression Medication refill (Primary) Disposition: Discharge I dictated portions of this note using [employer] speech recognition software. Occasional wrong word or sound-alike substitutions may have occurred due to the inherent limitations of voice recognition software. Please read the chart carefully and recognize, using context, where the substitutions may have occurred. If there are any questions, please contact me via [employer] or other HIPAA compliant communication medium for clarification. Zenaida Olvera NP 09/20/221948 Cosigned by Ric Curran MD at 09/21/2022 12:02 AM SHEAR OPERATOR AUTOMATIC R OPERATOR AUTOMATIC R OPERATOR AUTOMATIC * Santa Garza RN - 09/20/2022 6:07 PM CST Pt from home with cc of I have COVID . States he tested positive 6-7 days ago. Had an appt to get his psych meds refilled but had to cancel it due to COVID. Is here to get a medication refill. Is requesting refills of celexa and alprazolam. Told by nurse practitioner that they were unable to verify his meds and offered alternate solutions, but is unwilling to accept this explanation. Requests tospeak with charge nurse. After speaking with charge nurse pt agrees to wait in waiting room to be seen to explore other options. R OPERATOR AUTOMATIC R OPERATOR AUTOMATIC documented in this encounter Plan of Treatment Not on file documented as of this encounter Visit Diagnoses Diagnosis Medication refill- Primary Issue of repeat prescriptions documented in this encounter Care Teams Towel Cabinet Repairer Relationship Specialty Start Date End Date None, Provider, PCP - General 12/31/19 documented as of this encounter
--- OUTSIDE RECORDS SUMMARY | 2024-09-10 03:47 | XMS_ITS | Encounter Summary ---
Author Organization [facility] Address [address] [place] [address]. [place] [address] Care Team Providers Care Door To Door Selling Distributor Name Role Phone None, Provider Primary Care Provider Alisson oliva Encounter Details Date Type Department Care Team (Latest Contact Info) Description 05/09/2021 Travel Social History Tobacco Use Types Packs/Day [...] have Coronavirus / COVID-19? No / Unsure 05/09/2021 4:11 PM CDT documented as of this encounter Plan of Treatment Not on file documented as of this encounter Visit Diagnoses Not on filedocumented in this encounter Additional Health Concerns Infection Onset Date Last Indicated Resolved Time COVID-19 Rule Out 05/09/2021 05/09/2021 05/09/2021 6:57 PM CDT documented as of this encounter Care Teams Door To Door Selling Distributor Relationship Specialty Start Date End Date None, Provider, PCP - General 12/31/19 documented as of this encounter
--- OUTSIDE RECORDS SUMMARY | 2024-09-10 03:47 | XMS_ITS | Encounter Summary ---
Author Organization [facility] Address [address] [place] [address]. [place], [place] [id number] [place] [id number] Care Team Providers Care Sausage Linker Name Role Phone None, Provider Primary Care Provider Unavaila ble Reason for Visit * Reason Comments Flu Like Symptoms Encounter Details Date Type Department Care Team (Latest Contact Info) Description 05/09/2021 4:42 PM CDT - 05/09/2021 5:37 PM CDT Hospital Encounter [address] [address] Lin White PA [address] [place] [address] Flu Like Symptoms Discharge Disposition: Home or Self Care (Routine [...] PM CDT documented as of this encounter Last Filed Vital Signs Vital Sign Reading Time Taken Comments Blood Pressure 160/79 05/09/2021 4:46 PM CDT Pulse 67 05/09/2021 5:21 PM CDT Temperature 36.1 ??C (96.9 ??F) 05/09/2021 4:46 PM CD T Respiratory Rate 18 05/09/2021 5:21 PM CDT Oxygen Saturation 97% 05/09/2021 5:21 PM CDT Inhaled Oxygen Concentration - - Weight 109.8 kg (242 lb) 05/09/2021 4:46 PM CDT Height 188 cm (6' 2 ) 05/09/2021 4:46 PM CDT Body Mass Index 31.07 05/09/2021 4:46 PM CDT documented in this encounter Discharge Instructions * Discharge Instructions* AMIRA Stephenson - 05/09/2021 5:23 PM CDT Continue all your home medications. Stay very hydrated. Get plenty of rest. Follow-up closely with your doctor or the referred doctor in the next 2-3 days to ensure that you are improving. This is very important for your health. Use Tylenol and Motrin per package instructions for pain relief and fever reduction. Return to the emergency room for any new worsening symptoms especially for chest pain, worsening shortness of breath, uncontrollable vomiting, fever greater than 100.4 not relieved withTylenol Motrin, severe weakness, uncontrollable headache/pain, confusion or other new emergent concerns. Thank you for giving us the opportunity to care for you today. If at any point you are becoming more ill, your condition worsens or have concern, please call your doctor or return here. You are always welcome back. If you have any questions about this visit, concerns about your symptoms, questions about your medications or other concerns, please give us a call... Our practice is committed to providing you the exceptional care. We want to hear from you! Please fill out the survey you get from us. Your feedback is anonymous & helps us improve the patient experience for you and others in the community we serve. - Lin White PA-C - Emergency Medicine Provider ADDITIONAL DISCHARGE INSTRUCTIONS: --Please follow all the instructions that we have discussed or are provided here. Take all medications as directed. --Urgent Care (UC) provide medical screening exams and initial stabilizing treatment of emergency medical conditions. Medicine is an inexact science and many conditions cannot be diagnosed or completely treated during a single UC visit. Your treating healthcare provider(s) today feel your conditionhas been stabilized so further care as an outpatient is reasonable. Emergency care does not substitute for complete, ongoing, or follow-up care by your primary care physician or literacy consultant. Please mention to your follow-up physician that you were in the emergency department and request that they review your labs and/or imaging to ensure all findings are followed up on. --Your medication list was reviewed prior to treatment, and at discharge, by the treating provider for the purpose of this outpatient visit only. Please review this entire medication list with your pharmacist, primary care physician, and specialist(s). It is your responsibility to share any new medication instructions you received this visit with your doctor(s). Although no medicine is without risk, your healthcare provider today feels reasonable decisions were made concerning starting new medications and stopping or changing the dosages of your usual medications until you receive follow-up care. Take medications only as directed. Many medications can cause drowsiness, especially those for pain, anxiety, muscle spasms, nausea, and allergies. DO NOT drive, drink alcohol, operate power machinery, or participate in potentially dangerous activities if taking medicines that make you tired. Chronic pain is best managed by pain specialists or primary care physicians, so narcotic refills are not routinely dispensed in the . DO NOT take multiple medications containing acetaminophen (Tylenol), such as many narcotic drug combinations and [id number] cold medicines. --Again, it was a pleasure taking care of you. * Attachments The following attachments cannot be sent through Care Everywhere. * Viral Syndrome Discharge Instructions (Armenian) documented in this encounter Medications at Time [...] (six) hours as needed for Flatulence. atenolol 100 MG tablet Take 1 tablet (100 mg total) by mouth daily. 30 tablet 01/05/2020 2 fluticasone propionate 50 MCG/ACT nasal spray 2 sprays by Nasal route daily. 12/09/2020 4 meclizine 25 MG tablet Take 25 mg by mouth 3 (three) times daily as needed. 4 Neomycin-Bacitra chalino Zn-Polymyx [id number] Ointment Apply 1 Application to eye 3 (three) times daily. 3 g 12/21/2020 4 olopatadine 0.1 % ophthalmic solution Place 1 drop into both eyes 2 (two) times daily. 5 mL 08/25/2019 4 omeprazole 40 MG capsule Take 1 capsule (40 mg total) by mouth daily. 4 documented as of this encounter ED Notes * AMIRA Stephenson - 05/09/2021 5:03 PM CDT UC NOTE Chief Complaint Chief Complaint Patient presents with ??? Flu Like Symptoms History of Present Illness 51-year-old male with a history of diverticulitis, high blood pressure, MD, type 2 diabetes, depression, carcinoid tumor of the sigmoid colon and anxiety presents to the urgent care for repeat Covid testing. Patient reports that he noticed this past Wednesday approximately 3 days ago he started having a recurrent runny nose, cough, fatigue and intermittent shortness of breath. States he also has chills. States that his shortness of breath is mild. No dyspnea, chest pain orthopnea. States that he occasionally uses inhaler which helps alleviate his shortness of breath. No significant shortness ofbreath at this time. No lower leg edema. States he also does have some diarrhea although is being recently treated for diverticulitis. No melena, hematochezia or hematemesis. No focal abdominal pain or vomiting. Does also have a RUSSO. No dizziness, lightheadedness, difficulty with speech/vision/gait or hearing. States he still does not have taste or smell. States that this is been going on since hewas diagnosed with Covid April 01. Reports that he mainly came in for a repeat test because he was told he could not get his Covid vaccination today. Patient reports he does not have a PCP because he fired the previous one and was told that he is onblack list for other 1 so is having a hard time reestablishing care. Medical History ALLERGIES: Allergies Allergen Reactions ??? Clindamycin Shortness of Breath ??? Iodinated Diagnostic Agents Hallucinations and Hives IV contrast dye and drink ??? Iodine Hives and Shortness of Breath ??? Lidocaine Viscous Hcl Shortness of Breath ??? Losartan Angioedema Swollen lips Swollen lips ??? Maalox [Calcium Carbonate Antacid] Shortness of Breath ??? Pepcid [Famotidine] Shortness of Breath Iv pepcid only ??? Sulfa Antibiotics Hives ??? Sulfasalazine Shortness of Breath ??? Sulfur Hives and Shortness of Breath ??? Carvedilol Hives ??? [...] Start Date End Date Taking? Authorizing Provider ALPRAZolam 2 MG tablet Take 1 tablet (2 mg total) by mouth 3 (three) times daily as needed (anxiety). 01/05/20 Ric Curran MD atenolol 100 MG tablet Take 1 tablet (100 mg total) by mouth daily. 01/05/20 Ric Curran MD diphenhydrAMINE 25 MG capsule Take 25 mg by mouth every 6 (six) hours as needed for Itching. Doc Abstract fluticasone propionate 50 MCG/ACT nasal spray 2 sprays by Nasal route daily. 12/09/20 Doc Abstract meclizine 25 MG tablet Take 25 mg by mouth 3 (three) times daily as needed. Doc Abstract Neomycin-Bacitracin Zn-Polymyx [id number] Ointment Apply 1 Application to eye 3 (three) times daily. 12/21/20 Sarahy Headley MD olopatadine 0.1 % ophthalmic solution Place 1 drop into both eyes 2 (two) times daily. 08/25/19 Zenaida Olvera NP omeprazole 40 MG capsule Take 40 mg by mouth daily. Doc Abstract simethicone (GAS-X) 80 MG chewable tablet Chew 80 mg by mouth every 6 (six) hours as needed for Flatulence. Doc Abstract PAST MEDICAL HISTORY: Past Medical History: [...] History Tobacco Use ??? Smoking status: Former Smoker ??? Smokeless tobacco: Never Used Substance Use Topics ??? Alcohol use: No ??? Drug use: No Review of Systems Review of Systems Constitutional: Positive for chills and fever (subjective). HENT: Positive for congestion, ear pain, rhinorrhea, sinus pressure and sinus pain. Negative for sore throat. Eyes: Negative for pain and visual disturbance. Respiratory: Positive for cough and shortness of breath (none now). Cardiovascular: Negative for chest pain and palpitations. Gastrointestinal: Positive for diarrhea and nausea. Negative for abdominal pain and vomiting. Genitourinary: Negative for dysuria, hematuria and urgency. Musculoskeletal: Positive for myalgias. Negative for back pain and neck pain. Skin: Negative for rash and wound. Allergic/Immunologic: Negative for food allergies. Neurological: Positive for headaches. Negative for dizziness, tremors, seizures and numbness. Psychiatric/Behavioral: Negative. Physical Exam Filed Vitals: 05/09/21 1646 05/09/21 1721 BP: (!) 160/79 Pulse: 65 67 Resp: 16 18 Temp: 96.9 ??F (36.1 ??C) TempSrc: Temporal SpO2: 98% 97% Weight: 109.8 kg (242 lb) Height: 6' 2 (1.88 m) Physical Exam Vitals and nursing note reviewed. Constitutional: Appearance: Normal appearance. He is well-developed. Comments: Nontoxic appearing HENT: Head: Normocephalic and atraumatic. Right Ear: Tympanic membrane, ear canal and external ear normal. Left Ear: Tympanic membrane, ear canal and external ear normal. Nose: Nose normal. Mouth/Throat: Mouth: Mucous membranes are moist. Pharynx: Oropharynx is clear. Comments: No tonsillar exudate, edema, erythema. Uvula midline. No asymmetry or deviation. No trismus, drooling, soft palate swelling, oral floor elevation or neck induration/overlying cellulitis. No hot potato voice. Eyes: Extraocular Movements: Extraocular movements intact. Conjunctiva/sclera: Conjunctivae normal. Pupils: Pupils are equal, round, and reactive to light. Cardiovascular: Rate and Rhythm: Normal rate and regular rhythm. Pulses: Normal pulses. Heart sounds: Normal heart sounds. Pulmonary: Effort: Pulmonary effort is normal. No respiratory distress. Breath sounds: Normal breath sounds. Abdominal: General: Bowel sounds are normal. There is no distension. Palpations: Abdomen is soft. Tenderness: There is no abdominal tenderness. Musculoskeletal: General: Normal range of motion. Cervical back: Normal range of motion and neck supple. No rigidity. Right lower leg: No edema. Left lower leg: No edema. Lymphadenopathy: Cervical: No cervical adenopathy. Skin: General: Skin is warm and dry. Capillary Refill: Capillary refill takes less than 2 seconds. Neurological: General: No focal deficit present. Mental Status: He is alert and oriented to person, place, and time. Comments: Cranial nerves III through XII intact UE and LE distal pulses, sensation, CR, temp and strength intact. No focal deficit. Finger to nose intact and equal bilaterally. Negative Romberg. Ambulatory with steady gait. Psychiatric: Mood and Affect: Mood normal. Behavior: Behavior normal. Diagnostic Studies / Procedures ELECTROCARDIOGRAMS: No results found for this visit on 05/09/21. LABORATORY STUDIES: No results found for this visit on 05/09/21. IMAGING STUDIES No orders to display ED Course / Medical Decision Making ED Course as of May 09 1800 WedMay 09, 2021 1758 51-year-old male well-appearing nontoxic presents for a plethora of symptoms/complaints. Exam is reassuring. Consistent with possible Covid however patient reports that he apparently was diagnosed on April 01 although had conflicting results. Was ambulatory without any desaturation or hypoxia. Clear lungs on exam. Offered patient additional testing and work-up at the emergency room should he feel the need however states that he feels fine and mainly came in for repeat rapid test. Doesnot want any further work-up at this time or transfer. States that he feels comfortable returning should symptoms worsen. Will get test here today. Stable for outpatient follow. Strict verbal return precautions reviewed. Patient expresses verbal understanding and agreement with plan. All questions answered to the best of my ability. Teachback performed by patient. Nontoxic exit exam. Patient discharged home in stable condition. [AD] ED Course User Index [AD] AMIRA Stephenson Medications - No data to display Clinical Impression Viral syndrome (Primary) Discharge Medication List as of 05/09/2021 5:23 PM Disposition: Discharge Follow-Up: [address], [address], [place] [address] In 3 days Call the above number to schedule an appointment asking for new primary care physician. AMIRA STEPHENSON 05/09/2021 AMIRA Stephenson 05/09/21 1800 Cosigned by Sarahy Headley MD at 05/09/2021 6:22 PM CDT * Tracie Costello RN - 05/09/2021 4:48 PM CDT Pt reports a diagnosis of COVID on April 01. Pt states he has not been feeling well since Wednesday and reports chills, runny nose, cough, fatigue,and shortness of breath, Pt states he has not check for a temperature. Pt has not been vaccinated for COVID. documented in this encounter Plan of Treatment Not on file documented as of this encounter Procedures Procedure Name Priority Date/Time Associated Diagnosis Comments CORONAVIRUS (COVID-19) ANTIGEN STAT 05/09/2021 5:06 PM CDT documented in this encounter Results * CORONAVIRUS (COVID-19) ANTIGEN [IN-HOUSE [facility]] (05/09/2021 5:06 PM CDT) CORONAVIRUS ANTIGEN IA NEGATIVE NEGATIVE 05/09/2021 6:57 PM CDT [facility] Comment: NEGATIVE RESULTS SHOULD BE TREATED PRESUMPTIVE AND CONFIRMED WITH A MOLECULAR ASSAY IF NECESSARY FOR PATIENT MANAGEMENT. NEGATIVE RESULTS DO NOT RULE OUT COVID 19 AND SHOULD NOT BE USED THE SOLE BASIS FOR TREATMENT OR PATIENT MANAGEMENT DECISIONS, INCLUDING INFECTION CONTROL DECISIONS. NEGATIVE RESULTS SHOULD BE CONSIDERED IN THE CONTEXT OF A PATIENT'S RECENT EXPOSURES, HISTORY AND THE PRESENCE OF CLINICAL SIGNS AND SYMPTOMS CONSISTENT WITH COVID 19. THIS TEST HAS BEEN AUTHORIZED BY THE FDA UNDER AN EMERGENCY USE AUTHORIZATION (EUA) FOR USE BY AUTHORIZED LABORATORIES. SPECIMEN TYPE NASAL 05/09/2021 5:07 PM CDT [facility] FIRST TEST NO 05/09/2021 5:07 PM CDT [facility] EMPLOYED IN HEALTHCARE NO 05/09/2021 5:07 PM CDT [facility] SYMPTOMATIC DEFINED BY CDC YES 05/09/2021 5:07 PM CDT [facility] DATE OF SYMPTOM ONSET [id number] 05/09/2021 5:07 PM CDT [facility] HOSPITALIZATION STATUS NO 05/09/2021 5:07 PM CDT [facility] RESIDENT OF CONGREGATE CARE NO 05/09/2021 5:07 PM CDT [facility] Specimen from nose (specimen) NASAL STRUCTURE / Unknown 05/09/2021 5:06 PM CDT Lin [facility]LLIER [facility]CROBIOLOG[facility] - GENERAL ORDERA BLES Final Result [facility] [address] [id number], [facility] [address] [place] [address], documented in this encounter Visit Diagnoses Diagnosis Viral syndrome- Primary Unspecified viral infection, in conditions classified elsewhere and of unspecified site documented in this encounter Additional Health Concerns Infection Onset Date Last Indicated Resolved Time COVID-19 Rule Out 05/09/2021 05/09/2021 05/09/2021 6:57 PM CDT documented as of this encounter Care Teams Sausage Linker Relationship Specialty Start Date End Date None, Provider, PCP - General 12/31/19 documented as of this encounter
--- OUTSIDE RECORDS SUMMARY | 2024-09-10 03:47 | XMS_ITS | Clinical Summary ---
Author Organization [facility] Address [address] [place] [address]. [place] [id number] [place] [address] Care Team Providers Care Payroll Benefits Administrator Name Role Phone None, Provider MD Primary Care Provider Unavaila ble Allergies Active Allergy Reactions Criticality Noted Date Comments Barium Other (see comment) 07/25/2014 Buspirone Dizziness Low 03/12/2017 Carvedilol Hives Medium 12/05/2015 Cephalexin Hives,Unknown 03/05/2014 Clindamycin Shortness of Breath High 12/12/2018 Clonazepam Dizziness Medium 03/12/2017 Clonidine Anxiety Low 12/05/2015 Dicyclomine Anxiety Low 06/24/2018 Doxycycline Other (see comment),Unknown 03/05/2014 Elemental Sulfur Hives,Shortness of Breath High 11/16/2019 Flavoxate Hives Medium 06/24/2018 Glimepiride Hives 08/25/2019 Hydralazine Other (see comment) Low 12/05/2015 Iodinated Contrast Media Hallucinations,Hives High 11/09/2009 IV contrast dye and drink Iodine Hives,Shortness of Breath High 06/26/2013 Sitagliptin Chest pressure 12/31/2019 Ketorolac Nausea Only Low 03/12/2017 Ketorolac Tromethamine GI Upset Low 02/01/2018 Levetiracetam Other (see comment) Low 11/16/2019 hallucinaton hallucinaton Levofloxacin Unknown 10/09/2017 Levofloxacin Other (see comment),Hives Low 06/10/2009 Lidocaine Angioedema 01/12/2012 Lidocaine Viscous Hcl Shortness of Breath High 07/27 Lisinopril Unknown 09/25/2015 Losartan Angioedema High 08/01/2019 Swollen lips Swollen lips Calcium Carbonate Antacid Shortness of Breath High 07/27/2012 Metformin Chest pressure 12/31/2019 Morphine Hallucinations 12/12/2018 Nebivolol Swelling Medium 12/05/2015 lips lips Olanzapine Hallucinations Medium 03/12/2017 Oxycodone Hives 10/09/2017 Paroxetine Anxiety Low 10/09/2017 Famotidine Shortness of Breath High 10/09/2017 Iv pepcid only Sulfa Antibiotics Hives High 11/09/2009 Sulfamethoxazole-Trime thoprim Hives,Unknown 01/04/2014 Sulfasalazine Shortness of Breath High 06/26/2013 Trimethoprim Other (see comment) 12/31/2019 Azithromycin Hives 10/09/2017 Medications diphenhydrAMINE 25 MG capsule Take 1 capsule (25 mg total) by mouth every 6 (six) hours as needed for Itching. Active simethicone (GAS-X) 80 MG chewable tablet Chew 80 mg by mouth every 6 (six) hours as needed for Flatulence. Active ALPRAZolam 2 MG tablet Take 1 tablet (2 mg total) by mouth 3 (three) times daily as needed (anxiety). 7 tablet 01/05/2020 Active hydrOXYzine (ATARAX) 25 MG tablet Take 1-2 tablets (25-50 mg total) by mouth every 6 (six) hours as needed for Itching or Anxiety. 40 tablet 09/20/2022 Active escitalopram (LEXAPRO) 20 MG tablet Take 1 tablet (20 mg total) by mouth daily. Active fluticasone propionate (FLONASE) 50 MCG/ACT nasal spray 2 sprays by Nasal route daily. 9.9 mL 05/22/2024 Active atenolol (TENORMIN) 100 MG tablet Take 1 tablet (100 mg total) by mouth daily. 30 tablet 05/22/2024 Active ondansetron (ZOFRAN) 4 MG tablet Take 1 tablet (4 mg total) by mouth every 8 (eight) hours as needed for Nausea. 20 tablet 05/22/2024 Active omeprazole (PRILOSEC) 40 MG capsule Take 1 capsule (40 mg total) by mouth daily. 30 capsule 05/22/2024 Active Active Problems No known active problems Family History Medical History Relation Comments Stroke Father Cancer Mother Relation Status Comments Father Mother Social History Tobacco Use Types Packs/Day Years [...] Sign Reading Time Taken Comments Blood Pressure 150/86 05/22/2024 1:38 PM CDT Pulse 68 05/22/2024 1:38 PM CDT Temperature 36.1 ??C (97 ??F) 05/22/2024 1:38 PM CDT Respiratory Rate 16 05/22/2024 1:38 PM CDT Oxygen Saturation 100% 05/22/2024 1:38 PM CDT Inhaled Oxygen Concentration - - Weight 106.6 kg (235 lb) 05/22/2024 1:38 PM CDT Height 188 cm (6' 2 ) 05/22/2024 1:38 PM CDT Body Mass Index 30.17 05/22/2024 1:38 PM CDT Plan of Treatment Health Maintenance Due Date Last Done Comments Colorectal Cancer Screening Colonoscopy (10 Years) 1972 Annual Physical 02/09/1975 Hepatitis B Vaccines (1 of 3 - 19+ 3-dose series) 02/09/1991 DTaP, Tdap and Td Vaccines ( 1 - Tdap) 09/14/2011 09/13/2011 Zoster Vaccines (1 of 2) 02/09/2022 COVID-19 Vaccine (1 - 2023-2 5 season) 2024 Influenza Adult (#1) 2024 Hepatitis C Completed 10/20/2019 Meningococcal Vaccine Aged Out No mode jeremiah eligible based on patient's age to complete this topic Pneumococcal Vaccine: Pediat rics (0 to 5 Years) and At-Risk Patients (6 to 64 Years) Aged Out No longer eligi ble based on patient's age to complete this topic RSV Immunizations Under 20 Months Aged Out No longer eligible based on patient's age to complete this topic Insurance [facility] Care Teams Payroll Benefits Administrator Relationship Specialty Start Date End Date None, Provider, PCP - General 12/31/19
--- OUTSIDE RECORDS SUMMARY | 2024-09-10 03:47 | XMS_ITS | Encounter Summary ---
Author Organization [facility] Address [address] [place] [address]. [place], [place] [address] [place] [address] Care Team Providers Care Tanbark Peeler Name Role Phone None, Provider Primary Care Provider Unavaila ble Reason for Visit * Reason Comments Abdominal Pain URI Encounter Details Date Type Department Care Team (Latest Contact Info) Description 05/20/2021 6:38 PM CDT - 05/20/2021 8:11 PM CDT Hospital Encounter [facility] [address] [place], [place] [id number] Amanda Cheek MD [address] [place], [place] [id number] Abdominal Pain; URI Discharge Disposition: Home or Self Care (Routine [...] have Coronavirus / COVID-19? No / Unsure 05/20/2021 5:32 PM CDT documented as of this encounter Last Filed Vital Signs Vital Sign Reading Time Taken Comments Blood Pressure 156/83 05/20/2021 6:42 PM CDT Pulse 62 05/20/2021 6:42 PM CDT Temperature 36.6 ??C (97.8 ??F) 05/20/2021 6:42 PM CD T Respiratory Rate 18 05/20/2021 6:42 PM CDT Oxygen Saturation 99% 05/20/2021 6:42 PM CDT Inhaled Oxygen Concentration - - Weight 109.8 kg (242 lb) 05/20/2021 6:42 PM CDT Height 188 cm (6' 2 ) 05/20/2021 6:42 PM CDT Body Mass Index 31.07 05/20/2021 6:42 PM CDT documented in this encounter Discharge Instructions * Discharge Instructions* Amanda Cheek MD - 05/20/2021 8:15 PM CDT Thank you for giving us the opportunity to care for you today. If at any point you are becoming more ill, your condition worsens or have concern, please call your doctor or return here. You are always welcome back. If you have any questions about this visit, concerns about your symptoms, questions about your medications or other concerns, please give us a call. Our practice is committed to providing you the exceptional care. ADDITIONAL DISCHARGE INSTRUCTIONS: --Please follow all the instructions that we have discussed or are provided here. Take all medications as directed. --Emergency Departments (ED) provide medical screening exams and initial stabilizing treatment of emergency medical conditions. Medicine is an inexact science and many conditions cannot be diagnosed or completely treated during a single ED visit. Your treating healthcare provider(s) today feel yourcondition has been stabilized so further care as an outpatient is reasonable. Emergency care does not substitute for complete, ongoing, or follow-up care by your primary care physician or product support consultant.Please mention to your follow-up physician that you [...] refills are not routinely dispensed in the ED. DO NOT take multiple medications containing acetaminophen (Tylenol), such as many narcotic drug combinations and kovi-siw-[id number] cold medicines. Again, it was a pleasure taking care of you. Amanda Cheek MD * Attachments The following attachments cannot be sent through Care Everywhere. * Diverticulitis Discharge Instructions (American) * Viral Syndrome Discharge Instructions (American) documented in this encounter Medications at Time [...] daily as needed. 4 Neomycin-Bacitra chalino Zn-Polymyx 3.5-400-26279 Ointment Apply 1 Application to eye 3 (three) times daily. 3 g 12/21/2020 4 olopatadine 0.1 % ophthalmic solution Place 1 drop into both eyes 2 (two) times daily. 5 mL 08/25/2019 4 omeprazole 40 MG capsule Take 1 capsule (40 mg total) by mouth daily. 4 documented as of this encounter ED Notes * Amanda Cheek MD - 05/20/2021 8:11 PM CDT [facility] NOTE Chief Complaint Chief Complaint Patient presents with ??? Abdominal Pain ??? URI History of Present Illness This note was prepared using a TapSurge dictation device. Please excuse any errors or substitutions. Also this patient was cared for in the middle of an unusual surge in emergency/urgent care department census directly related to the SARS-2/COVID-19 pandemic. As a result, some of the time indices noted below may be inaccurate. The patient is a 51-year-old male presenting with cough, congestion, sore throat, fatigue, and bodyaches for the past 3 to 4 days. He reports having sick contacts. Patient reports a recent history of Covid infection. He denies any recent travel. He is not vaccinated against Covid. Patient is also complaining of left lower abdominal pain with a history of diverticulosis. He reports that he has had diverticulitis in the past, he has had a successful outpatient management of diverticulitis. Reports that he has only been admitted once for diverticulitis, denies any history of perforation. Reports a recent colonoscopy, with unremarkable results. Last bowel movement was this morning and was normal for him. Medical History ALLERGIES: Allergies Allergen Reactions ??? [...] Start Date End Date Taking? Authorizing Provider ciprofloxacin 750 MG tablet Take 1 tablet (750 mg total) by mouth 2 (two) times daily for 10 days. 05/20/21 05/30/21 Yes Amanda Cheek MD metroNIDAZOLE 500 MG tablet Take 1 tablet (500 mg total) by mouth every 6 (six) hours for 10 days. 05/20/21 05/30/21 Yes Amanda Cheek MD ALPRAZolam 2 MG tablet Take 1 tablet (2 mg total) by mouth 3 (three) times daily as needed (anxiety). 01/05/20 Ric Curran MD atenolol 100 MG tablet Take 1 tablet (100 mg total) by mouth daily. 01/05/20 Ric Cruran MD diphenhydrAMINE 25 MG capsule Take 25 mg by mouth every 6 (six) hours as needed for Itching. Doc Abstract fluticasone propionate 50 MCG/ACT nasal spray 2 sprays by Nasal route daily. 12/09/20 Doc Abstract meclizine 25 MG tablet Take 25 mg by mouth 3 (three) times daily as needed. Doc Abstract Neomycin-Bacitracin Zn-Polymyx [id number] Ointment Apply 1 Application to eye 3 (three) times daily. 12/21/20 Sarahy Headley MD olopatadine 0.1 % ophthalmic solution Place 1 drop into both eyes 2 (two) times daily. 08/25/19 Zenaida Olvera, VENTURA omeprazole 40 MG capsule Take 40 mg [...] Systems Review of Systems Constitutional: Positive for fatigue. Negative for chills, diaphoresis and fever. HENT: Positive for congestion, rhinorrhea and sore throat. Negative for trouble swallowing and voice change. Respiratory: Positive for cough. Negative for shortness of breath. Cardiovascular: Negative for chest pain and palpitations. Gastrointestinal: Positive for abdominal pain. Negative for diarrhea, nausea and vomiting. Musculoskeletal: Positive for myalgias. Skin: Negative for rash. Physical Exam Filed Vitals: 05/20/21 1842 BP: (!) 156/83 Pulse: 62 Resp: 18 Temp: 97.8 ??F (36.6 ??C) TempSrc: Temporal SpO2: 99% Weight: 109.8 kg (242 lb) Height: 6' 2 (1.88 m) Physical Exam Vitals and nursing note reviewed. Constitutional: General: He is not in acute distress. Appearance: Normal appearance. He is obese. He is not ill-appearing, toxic- appearing or diaphoretic. Comments: Patient sitting on the exam table, able to speak in full sentences without difficulty. HENT: Head: Normocephalic and atraumatic. Right Ear: Tympanic membrane, ear canal and external ear normal. Left Ear: Tympanic membrane, ear canal and external ear normal. Nose: Nose normal. No congestion or rhinorrhea. Mouth/Throat: Mouth: Mucous membranes are moist. Pharynx: Oropharynx is clear. Posterior oropharyngeal erythema present. No oropharyngeal exudate. Eyes: Extraocular Movements: Extraocular movements intact. Conjunctiva/sclera: Conjunctivae normal. Cardiovascular: Rate and Rhythm: Normal rate and regular rhythm. Pulses: Normal pulses. Heart sounds: Normal heart sounds. Pulmonary: Effort: Pulmonary effort is normal. No respiratory distress. Breath sounds: Normal breath sounds. No wheezing. Abdominal: General: Abdomen is flat. Bowel sounds are normal. There is no distension. Palpations: Abdomen is soft. Tenderness: There is abdominal tenderness (LLQ). There is no right CVA tenderness, left CVA tenderness, guarding or rebound. Negative signs include Quigley's sign and McBurney's sign. Musculoskeletal: General: Normal range of motion. Cervical back: Normal range of motion and neck supple. No rigidity or tenderness. Lymphadenopathy: Cervical: No cervical adenopathy. Skin: General: Skin is warm and dry. Capillary Refill: Capillary refill takes less than 2 seconds. Findings: No rash. Neurological: Mental Status: He is alert and oriented to person, place, and time. Mental status is at baseline. Psychiatric: Mood and Affect: Mood normal. Behavior: Behavior normal. Diagnostic Studies / Procedures ELECTROCARDIOGRAMS: No results found for this visit on 05/20/21. LABORATORY STUDIES: No results found for this visit on 05/20/21. IMAGING STUDIES No orders to display ED Course / Medical Decision Making MDM Number of Diagnoses or Management Options At increased risk of exposure to COVID-19 virus History of diverticulitis Left lower quadrant abdominal pain URI (upper respiratory infection) Diagnosis management comments: Had an extensive discussion with the patient in regards to outpatient versus inpatient management for diverticulitis. Informed him that if he has any difficulty taking the antibiotics or if his symptoms get progressively worse that he should present to the emergency department for further evaluation and management. Plan of care discussed with patient. ??Patient agreeable with plan of care. ??I have discussed today's findings with the patient and provided information regarding the likely diagnosis. I believe at this time that the patient has no medical emergency and is appropriate for outpatient management. The patient has been given information regarding their treatment, follow up and concerning symptoms for which they should seek urgent or emergent attention; all questions were answered. ??I have expressed the the importance of seeking attention should there be any new, or worsening symptoms or persistence of their condition. The patient is stable at discharge and has verbalized understanding of these instructions.?? Amount and/or Complexity of Data Reviewed Clinical lab tests: ordered Risk of Complications, Morbidity, and/or Mortality Presenting problems: moderate Diagnostic procedures: low Management options: low Patient Progress Patient progress: stable ED Course as of May 20 2113WedMay 20, 20211999 Patient stated that Cipro and metronidazole usually help him when he has flareups of diverticulitis. [CC] 2008 Patient requesting a rapid Covid test. [CC] ED Course User Index [CC] Amanda Cheek MD Medications - No data to display Clinical Impression History of diverticulitis (Primary) Left lower quadrant abdominal pain URI (upper respiratory infection) At increased risk of exposure to COVID-19 virus Discharge Medication List as of 05/20/2021 8:15 PM START taking these medications Details ciprofloxacin 750 MG tablet Take 1 tablet (750 mg total) by mouth 2 (two) times daily for 10 days.,Starting Wed05/20/2021, Until Wed05/30/2021, Eprescribe Class: [id number] [place] [address] (Ph #: [phone]) metroNIDAZOLE 500 MG tablet Take 1 tablet (500 mg total) by mouth every 6 (six) hours for 10 days.,Starting Wed05/20/2021, Until Wed05/30/2021, Eprescribe Class: [facility]cribe [id number] (Ph #: [phone]) Disposition: Discharge Follow-Up: Dave Bolanos MD [address] [place] [id number] Schedule an appointment as soon as possible for a visit AMANDA CHEEK MD 05/20/2021 Amanda Cheek MD 05/20/212112 * Alexandria Sexton RN - 05/20/2021 6:44 PM CDT PT TO UC WITH C/O COUGH, CONGESTION, SORE THROAT, BODY ACHES, AND FATIGUE, SX FOR 3-4 DAYS. ALSO HAS LEFT LOWER ABDOMINAL PAIN, STATED HE HAS DIVERTICULITIS, WAS TOLD THIS BY HIS UROLOGIST 4 DAYS AGO, WHEN ASKED HOW HIS UROLOGIST DX THIS, HE STATED, BECAUSE HE STUCK A TUBE IN MY PENIS documented in this encounter Plan of Treatment Not on file documented as of this encounter Procedures Procedure Name Priority Date/Time Associated Diagnosis Comments CORONAVIRUS (COVID-19) ANTIGEN STAT 05/20/2021 8:10 PM CDT documented in this encounter Results * CORONAVIRUS (COVID-19) ANTIGEN (05/20/2021 8:10 PM CDT) CORONAVIRUS ANTIGEN IA NEGATIVE NEGATIVE 05/20/2021 10:39 PM CDT [facility] Comment: NEGATIVE RESULTS SHOULD BE TREATED [...] USE BY AUTHORIZED LABORATORIES. SPECIMEN TYPE NASAL 05/20/2021 8:13 PM CDT [facility] FIRST TEST NO 05/20/2021 8:13 PM CDT [facility] EMPLOYED IN HEALTHCARE NO 05/20/2021 8:13 PM CDT [facility] SYMPTOMATIC DEFINED BY CDC YES 05/20/2021 8:13 PM CDT [facility] DATE OF SYMPTOM ONSET [id number] 05/20/2021 8:13 PM CDT [facility] HOSPITALIZATION STATUS NO 05/20/2021 8:13 PM CDT [facility] RESIDENT OF [facility] CARE NO 05/20/2021 8:13 PM CDT [facility] Specimen from nose (specimen) NASAL STRUCTURE / Unknown 05/20/2021 8:10 PM CDT Amanda Cheek MD MICROBIOLOGY - GENERAL ORDER RIMA Final Result Performing Organization Address City/State/[facility] Co de Phone Number [facility] [address] [place] [address], [facility] [address] [place] [address], [place] [phone] documented in this encounter Visit Diagnoses Diagnosis History of diverticulitis- Primary Left lower quadrant abdominal pain URI (upper respiratory infection) Acute upper respiratory infections of unspecified site At increased risk of exposure to COVID-19 virus documented in this encounter Additional Health Concerns Infection Onset Date Last Indicated Resolved Time COVID-19 Rule Out 05/20/2021 05/20/2021 05/20/2021 10:39 PM CDT documented as of this encounter Care Teams Tanbark Peeler Relationship Specialty Start Date End Date None, Provider, PCP - General 12/31/19 documented as of this encounter
--- OUTSIDE RECORDS SUMMARY | 2024-09-10 03:47 | XMS_ITS | Encounter Summary ---
Author Organization [facility] Address [address] [place] [address]. [place] [address] Care Team Providers Care Sound Cutter Name Role Phone None, Provider Primary Care Provider Alisson oliva Encounter Details Date Type Department Care Team (Latest Contact Info) Description 11/10/2022 Travel Social History Tobacco Use Types Packs/Day [...] Coronavirus/COVID-19? 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
--- OUTSIDE RECORDS SUMMARY | 2024-09-10 03:47 | XMS_ITS | Encounter Summary ---
Author Organization [facility] Address [address] [place] [address]. [place], [place] [id number] [place] [id number] Care Team Providers Care Machine Records Units Supervisor Name Role Phone None, Provider Primary Care Provider Unavaila ble Reason for Visit * Reason Comments Medication Management URI Encounter Details Date Type Department Care Team (Latest Contact Info) Description 05/22/2024 1:31 PM CDT - 05/22/2024 3:05 PM CDT Hospital Encounter [facility] [address] [place], [place] [phone] Sarahy Headley MD [address] [place], [place] [id number] Medication Management; URI Discharge Disposition: Home or Self Care [...] Mass Index 30.17 05/22/2024 1:38 PM CDT documented in this encounter Discharge Instructions * Attachments The following attachments cannot be sent through Care Everywhere. * Seasonal Allergies Discharge Instructions (Turkmen) documented in this encounter Medications at Time of Discharge ALPRAZolam 2 MG tablet Take 1 tablet (2 mg total) by mouth 3 (three) times daily as needed (anxiety). 7 tablet 01/05/2020 atenolol (TENORMIN) 100 MG tablet Take 1 tablet (100 mg total) by mouth daily. 30 tablet 05/22/2024 diphenhydrAMINE 25 MG capsule Take 1 capsule (25 mg total) by mouth every 6 (six) hours as needed for Itching. escitalopram (LEXAPRO) 20 MG tablet Take 1 tablet (20 mg total) by mouth daily. fluticasone propionate (FLONASE) 50 MCG/ACT nasal spray 2 sprays by Nasal route daily. 9.9 mL 05/22/2024 ondansetron (ZOFRAN) 4 MG tablet Take 1 tablet (4 mg total) by mouth every 8 (eight) hours as needed for Nausea. 20 tablet 05/22/2024 simethicone (GAS-X) 80 MG chewable tablet Chew 80 mg by mouth every 6 (six) hours as needed for Flatulence. documented as of this encounter ED Notes * Sarahy Headley MD - 05/22/2024 3:05 PM CDT History Chief Complaint Patient presents with Medication Management JACEK Mcgee is a 54-year-old male who presented to the ED with complaints of mild sinus headaches and some dizziness sore throat and facial pain for the past 4 days. However patient is mainly here for refills of his medications including antihypertensives and omeprazole. Patient says he will be seeing a new PCP in 3 weeks. He denies any fever chills complains of nausea denies any vomiting diarrhea skin rash cough shortness of breath chest discomfort or neck pain. He denies any tinnitus. Hedoes know that he has a tumor in the sigmoid colon as well as splenomegaly that is under workup right now. 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 Authorizing Provider ALPRAZolam 2 MG tablet Take 1 tablet (2 mg total) by mouth 3 (three) times daily as needed (anxiety). 01/05/20 Yes Ric Curran MD atenolol (TENORMIN) 100 MG tablet Take 1 tablet (100 mg total) by mouth daily. 05/22/24 Yes Sarahy Headley MD diphenhydrAMINE 25 MG capsule Take 1 capsule (25 mg total) by mouth every 6 (six) hours as needed for Itching. Yes Doc [facility] escitalopram (LEXAPRO) 20 MG tablet Take 1 tablet (20 mg total) by mouth daily. Yes Default HistoryGenericprovider fluticasone propionate (FLONASE) 50 MCG/ACT nasal spray 2 sprays by Nasal route daily. 05/22/24 Yes Sarahy Headley MD omeprazole (PRILOSEC) 40 MG capsule Take 1 capsule (40 mg total) by mouth daily. 05/22/24 Yes Sarahy Headley MD ondansetron (ZOFRAN) 4 MG tablet Take 1 tablet (4 mg total) by mouth every 8 (eight) hours as needed for Nausea. 05/22/24 Yes Sarahy Headley MD hydrOXYzine (ATARAX) 25 MG tablet Take 1-2 tablets (25-50 mg total) by mouth every 6 (six) hours asneeded for Itching or Anxiety. 09/20/22 09/30/22 Zenaida Olvera NP simethicone (GAS-X) 80 MG chewable tablet Chew 80 mg by mouth every 6 (six) hours as needed for Flatulence. Doc [facility] Past Surgical History: Procedure Laterality Date CARDIAC CATHETERIZATION CHOLECYSTECTOMY COLONOSCOPY STOMA DX INCLUDING COLLJ SPEC SPX EGD Family History Problem Relation Name Age of Onset Cancer Mother Stroke Father Social History Tobacco Use Smoking status: Former Smokeless tobacco: Never Vaping Use Vaping status: Never Used Substance Use Topics Alcohol use: No Drug use: No Review of Systems All other systems reviewed and are negative. Physical Exam Filed Vitals: 05/22/24 1338 BP: (!) 150/86 Pulse: 68 Resp: 16 Temp: 97 ??F (36.1 ??C) TempSrc: Temporal SpO2: 100% Weight: 106.6 kg (235 lb) Height: 1.88 m (6' 2 ) Physical Exam Vitals and nursing note reviewed. Constitutional: Appearance: Normal appearance. HENT: Right Ear: Tympanic membrane normal. Left Ear: Tympanic membrane normal. Nose: Congestion and rhinorrhea present. Mouth/Throat: Pharynx: Oropharynx is clear. Cardiovascular: Rate and Rhythm: Normal rate and regular rhythm. Pulses: Normal pulses. Heart sounds: Normal heart sounds. Pulmonary: Effort: Pulmonary effort is normal. Breath sounds: Normal breath sounds. Musculoskeletal: General: Normal range of motion. Cervical back: Normal range of motion and neck supple. Skin: General: Skin is warm and dry. Neurological: General: No focal deficit present. Mental Status: He is oriented to person, place, and time. Labs Reviewed CORONAVIRUS (COVID 19) No orders to display ED Course Procedures MDM COVID test was negative This is a 54-year-old with history of anxiety hypertension diabetes as well as a carcinoid tumor ofthe sigmoid who presents largely for medication refills and nonspecific symptoms of sinusitis. Willgive her a refill of prescriptions and have patient follow-up with primary MD for further evaluation and treatment of his chronic problems patient understands the plan SNOMED CT(R) 1. Allergic rhinitis ALLERGIC RHINITIS 2. Medication refill REPEATED PRESCRIPTION Disposition: Discharge Discharge Medication List as of 05/22/2024 2:56 PM MD Sarahy FELTON MD 05/25/24 [id number] * Ketty Ramos RN - 05/22/2024 1:32 PM CDT Pt to CC with request for medication refill. Pt will be seeing a new PCP in 3 weeks. Pt needs Omeprazole and medications for hypertension. Pt also complains of sinus headache, sore throat, facial pain. Onset 4 days ago. documented in this encounter Plan of Treatment Not on file documented as of this encounter Procedures Procedure Name Priority Date/Time Associated Diagnosis Comments CORONAVIRUS (COVID 19) STAT 05/22/2024 1:41 PM CDT documented in this encounter Results * CORONAVIRUS (COVID 19) (05/22/2024 1:41 PM CDT) CORONAVIRUS SARS COV 2 RNA NEGATIVE NEGATIVE 05/22/2024 1:59 PM CDT [facility] Comment: NEGATIVE RESULTS DO NOT RULE OUT COVID 19 AND SHOULD NOT BE USED THE SOLE BASIS FOR TREATMENT OR PATIENT MANAGEMENT DECISIONS, INCLUDING INFECTION CONTROL DECISIONS. NEGATIVE RESULTS SHOULD BE CONSIDERED IN THE CONTEXT OF A PATIENT'S RECENT EXPOSURES, HISTORY AND THE PRESENCE OF CLINICAL SIGNS AND SYMPTOMS CONSISTENT WITH COVID 19. THE ID NOW COVID-19 2.0 TEST HAS BEEN AUTHORIZED BY THE FDA UNDER EAU FOR USE BY AUTHORIZED LABORATORIES. PERFORMED BY NUCLEIC ACID AMPLIFICATION FOR MOLECULAR QUALITATIVE DETECTION OF SARS-COV-2. SPECIMEN TYPE NASAL 05/22/2024 1:42 PM CDT [facility] NASAL STRUCTURE / Unknown 05/22/2024 1:41 PM CDT us Sarahy Headley MD MICROBIOLOGY - GENERAL [place] LEVINE Final Result [facility] [address] [place] [id number], documented in this encounter Visit Diagnoses Diagnosis Allergic rhinitis- Primary Allergic rhinitis, cause unspecified Medication refill Issue of repeat prescriptions documented in this encounter Additional Health Concerns Infection Onset Date Last Indicated Resolved Time COVID-19 Rule Out 05/22/2024 05/22/2024 05/22/2024 1:59 PM CDT documented as of this encounter Care Teams Machine Records Units Supervisor Relationship Specialty Start Date End Date None, Provider, PCP - General 12/31/19 documented as of this encounter
--- OUTSIDE RECORDS SUMMARY | 2024-09-10 03:47 | XMS_ITS | Encounter Summary ---
Author Organization [facility] Address [address] [place] [address]. [place], [place] [id number] [place], [place] [id number] Care Team Providers Care Geographic Area Intelligence Officer Name Role Phone None, Provider MD Primary Care Provider Unavaila ble Reason for Visit * Reason Onset Date Comments Other 12/28/2022 Encounter Details Date Type Department Care Team (Late st Contact Info) Description 12/28/2022 Telephone [facility] DEFAULT None, Provider, MD Other Social History Tobacco Use Types Packs/Day Years [...] as of this encounter Progress Notes * Rimma Mayer - 12/28/2022 12:48 PM CDT Previous pt of [facility] termed in 2016, stated that he cannot believe this. He stated thathe saw a SQL ANALYST for a first time visit and was in the room for almost two hours as she was very thorough. He said the day after the visit, the PM called and asked if he knew her personally and asked whatwas going on behind those closed doors. He was very offended by her line of questioning and wants to clear his name with [facility]. He went over this info repeatedly for about 20 minutes. I advised I would send this info to my PM and see what could be done. I did advise him if he still has [place] we do not take the insurance at all. documented in this encounter Plan of Treatment Not on file documented as of this encounter Visit Diagnoses Not on filedocumented in this encounter Care Teams Geographic Area Intelligence Officer Relationship Specialty Start Date End Date None, Provider, PCP - General 12/31/19 documented as of this encounter
--- OUTSIDE RECORDS SUMMARY | 2024-09-10 03:47 | XMS_ITS | Encounter Summary ---
Author Organization [facility] Address [address] [place] [address]. [place] [address] Care Team Providers Care Stone Banker Name Role Phone None, Provider Primary Care Provider Alisson oliva Encounter Details Date Type Department Care Team (Latest Contact Info) Description 09/20/2022 Travel Social History Tobacco Use Types Packs/Day [...] to have Coronavirus/COVID-19? Yes 09/20/2022 6:03 PM LPN RN documented as of this encounter Plan of Treatment Not on file documented as of this encounter Visit Diagnoses Not on filedocumented in this encounter Care Teams Stone Banker Relationship Specialty Start Date End Date None, ProviderMD PCP - General 12/31/19 documented as of this encounter
--- OUTSIDE RECORDS SUMMARY | 2024-09-10 03:47 | XMS_ITS | Encounter Summary ---
Author Organization [facility] Address [address] [place] [address]. [place] [address] Care Team Providers Care Manager Work Name Role Phone None, Provider Primary Care Provider Alisson oliva Encounter Details Date Type Department Care Team (Latest Contact Info) Description 05/20/2021 Travel Social History Tobacco Use Types Packs/Day [...] documented as of this encounter Care Teams Manager Work Relationship Specialty Start Date End Date None, Provider, PCP - General 12/31/19 documented as of this encounter
--- OUTSIDE RECORDS SUMMARY | 2024-09-10 03:47 | XMS_ITS | Encounter Summary ---
Author Organization [facility] Address [address] [place] [address]. [place] [address] Care Team Providers Care Forest Pathologist Name Role Phone None, Provider Primary Care Provider Alisson oliva Encounter Details Date Type Department Care Team (Latest Contact Info) Description 05/22/2024 Travel Social History Tobacco Use Types Packs/Day [...] documented as of this encounter Care Teams Forest Pathologist Relationship Specialty Start Date End Date None, Provider, PCP - General 12/31/19 documented as of this encounter
--- OUTSIDE RECORDS SUMMARY | 2024-09-10 03:47 | XMS_ITS | Encounter Summary ---
Author Organization [facility] Address [address] [place] [address]. [place] [address] Care Team Providers Care Family Services Coordinator Name Role Phone None, Provider Primary Care Provider Alisson oliva Encounter Details Date Type Department Care Team (Latest Contact Info) Description 08/08/2022 Travel Social History Tobacco Use Types Packs/Day [...] Coronavirus/COVID-19? No / Unsure 08/08/2022 8:49 AM [employer] SYSTEMS ADMINISTRATOR documented as of this encounter Plan of Treatment Not on file documented as of this encounter Visit Diagnoses Not on filedocumented in this encounter Care Teams Family Services Coordinator Relationship Specialty Start Date End Date None, Provider, PCP - General 12/31/19 documented as of this encounter
--- OUTSIDE RECORDS SUMMARY | 2024-09-10 03:48 | XMS_ITS | Encounter Summary ---
Author Organization [facility] Address [address] [place] [address]. [place], [place] [id number] [place] [id number] Care Team Providers Care Dba Manager Name Role Phone None, Provider Primary Care Provider Alisson oliva Encounter Details Date Type Department Care Team (Late st Contact Info) Description 01/04/2020 Telephone [facility] [place] [address] Lee Ann Aguilar, COMMUNITY COORDINATOR Social History Tobacco Use Types Packs/Day Years [...] have Coronavirus / COVID-19? No / Unsure 12/31/2019 7:10 AM CDT documented as of this encounter Plan of Treatment Not on file documented as of this encounter Visit Diagnoses Not on filedocumented in this encounter Additional Health Concerns Infection Onset Date Last Indicated Resolved Time COVID-19 Rule Out 05/09/2021 05/09/2021 05/09/2021 6:57 PM CDT COVID-19 Rule Out 05/20/2021 05/20/2021 05/20/2021 10:39 PM CDT COVID-19 Rule Out 05/22/2024 05/22/2024 05/22/2024 1:59 PM CDT documented as of this encounter Care Teams Dba Manager Relationship Specialty Start Date End Date None, Provider, PCP - General 12/31/19 documented as of this encounter
--- OUTSIDE RECORDS SUMMARY | 2024-09-10 03:48 | XMS_ITS | Encounter Summary ---
Author Organization [facility] Address [address] [place] [address]. [place], [place] [id number] [place] [address] Care Team Providers Care Bible Reader Name Role Phone None, Provider MD Primary Care Provider Unavaila ble Reason for Visit * Reason Comments Ear Problem Encounter Details Date Type Department Care Team (Latest Contact Info) Description 02/22/2019 9:46 AM CDT - 02/22/2019 11:20 AM CDT Hospital Encounter [facility] [address] [place] [address] Luna Osorio, [facility] [address] [address] Ear Problem Discharge Disposition: Home or Self Care (Routine [...] Sign Reading Time Taken Comments Blood Pressure 155/93 02/22/2019 9:49 AM CDT Pulse 70 02/22/2019 9:49 AM CDT Temperature 36.6 ??C (97.8 ??F) 02/22/2019 9:49 AM CD T Respiratory Rate 18 02/22/2019 9:49 AM CDT Oxygen Saturation 97% 02/22/2019 9:49 AM CDT Inhaled Oxygen Concentration - - Weight 119.7 kg (264 lb) 02/22/2019 9:49 AM CDT Height 188 cm (6' 2 ) 02/22/2019 9:49 AM CDT Body Mass Index 33.9 02/22/2019 9:49 AM CDT documented in this encounter Discharge Instructions * Discharge Instructions* RAINA Xavier - 02/22/2019 10:51 AM CDT You should follow-up with a new primary care doctor to discuss your concerns. Thank you for giving us the opportunity to care for you today. If at any point you are becoming more ill, please call your doctor, return here, or go to the ER. You are always welcome back. If you have any questions about this visit, concerns about your symptoms, questions about your medications or other concerns, please give us a call... - RAINA Pedro- - Emergency Medicine Provider * Attachments The following attachments cannot be sent through Care Everywhere. * Outer Ear Infection Discharge Instructions (Guatemalan) documented in this encounter Medications at Time of Discharge diphenhydrAMINE 25 MG capsule Take 1 capsule (25 mg total) by mouth every 6 (six) hours as needed for Itching. simethicone (GAS-X) 80 MG chewable tablet Chew 80 mg by mouth every 6 (six) hours as needed for Flatulence. acetaminophen [address] 650 mg rectally every 4 (four) hours as needed for Fever. 9 albuterol sulfate HFA 108 (90 Base) MCG/ACT inhaler Inhale 2 puffs into the lungs every 4 (four) hours as needed for Wheezing. 1 Inhaler 12/12/2018 0 alprazolam 2 MG tablet Take 2 mg by mouth 4 (four) times daily as needed. 0 atenolol 100 MG tablet Take 1 tablet (100 mg total) by mouth daily. 30 tablet 12/12/2018 0 ciprofloxacin-dex amethasone otic suspension Place 4 drops in ear(s) 2 (two) times daily for 10 days. 7.5 mL 02/22/2019 9 citalopram 40 MG tablet Take 40 mg by mouth daily. 9 DM-APAP-CPM (CORICIDIN HBP) 10-325-2 MG Tab Take 1 tablet by mouth 2 (two) times daily as needed. 840 tablet 02/22/2019 9 fluticasone propionate (FLONASE) 50 MCG/ACT nasal spray 2 sprays by Nasal route daily. 16 g 12/12/2018 0 meclizine 25 MG tablet Take 25 mg by mouth 3 (three) times daily as needed. 4 omeprazole 40 MG capsule Take 1 capsule (40 mg total) by mouth daily. 4 documented as of this encounter ED Notes * Luna Osorio, SPECIALTY PLANT SUPERVISOR - 02/22/2019 10:45 AM CDT Chief Complaint Chief Complaint Patient presents with ??? Ear Problem History of Present Illness 49 year old male to urgent care with multiple complaints. He states he has congestion in his sinuses, postnasal drip, congestion in his ears, aches in his muscles, shoulders, knees. He states he alsohas infrequent urinary frequency, states he was seen by PCP who advised him to start metformin, he states he was advised he was borderline diabetic, but did not want to start this medication and is concerned that his sugar may be high. He states he daily takes Flonase and cannot take Zyrtec or Claritin, states he takes Benadryl 3 times a day. He states he is tried Sudafed with minimal relief. He also notes he was recently on a course of antibiotics for similar symptoms. He notes that his eyes oc casionally jump and twitch. He denies weakness or speech changes. Medical History ALLERGIES: Allergies Allergen Reactions ??? Clindamycin Shortness of Breath ??? Pepcid [Famotidine] Shortness of Breath Iv pepcid only ??? Bactrim [Sulfamethoxazole-Trimethoprim] Hives ??? Contrast [Iodine] Hives ??? Keflex [Cephalexin] Hives ??? Levofloxacin Unknown ??? Lidocaine Angioedema ??? Morphine Hallucinations ??? Oxycodone Hives ??? Zithromax [Azithromycin] Hives ??? Ketorolac Tromethamine GI Upset ??? Paxil [Paroxetine] Anxiety MEDICATIONS: Prior to Admission medications Medication Sig Start Date End Date Taking? Authorizing Provider ciprofloxacin-dexamethasone otic suspension Place 4 drops in ear(s) 2 (two) times daily for 10 days. 02/22/19 03/04/19 Yes RAINA Xavier DM-APAP-CPM (CORICIDIN HBP) 10-325-2 MG Tab Take 1 tablet by mouth 2 (two) times daily as needed. 02/22/19 Yes RAINA Xavier acetaminophen [address] 650 mg rectally every 4 (four) hours as needed for Fever. Doc Abstract albuterol sulfate HFA 108 (90 Base) MCG/ACT inhaler Inhale 2 puffs into the lungs every 4 (four) hours as needed for Wheezing. 12/12/18 12/12/19 Charly Durant PA-C alprazolam 2 MG tablet Take 2 mg by mouth 4 (four) times daily as needed. Doc Abstract atenolol 100 MG tablet Take 1 tablet (100 mg total) by mouth daily. 12/12/18 Charly Durant PA-C citalopram 40 MG tablet Take 40 mg by mouth daily. Doc Abstract diphenhydrAMINE 25 MG capsule Take 25 mg by mouth every 6 (six) hours as needed for Itching. Doc Abstract fluticasone propionate (FLONASE) 50 MCG/ACT nasal spray 2 sprays by Nasal route daily. 12/12/18 12/12/19 Charly Durant PA-C meclizine 25 MG tablet Take 25 mg by mouth 3 (three) times daily as needed. Doc Abstract omeprazole 40 MG capsule Take 40 mg [...] Laterality Date ??? CARDIAC CATHETERIZATION ??? CHOLECYSTECTOMY FAMILY HISTORY: Family History Problem Relation Name Age of Onset ??? Cancer Mother ??? Stroke Father SOCIAL HISTORY: Social History Tobacco Use ??? Smoking status: Former Smoker ??? Smokeless tobacco: Never Used Substance Use Topics ??? Alcohol use: No ??? Drug use: No Review of Systems Review of Systems Constitutional: Positive for chills. Negative for fever. HENT: Positive for congestion, ear pain and sore throat. Negative for sinus pain, trouble swallowing and voice change. Eyes: Negative for pain and redness. Respiratory: Negative for cough, chest tightness, shortness of breath and wheezing. Cardiovascular: Negative for chest pain. Gastrointestinal: Negative for abdominal pain, constipation, diarrhea, nausea and vomiting. Genitourinary: Positive for frequency. Negative for dysuria. Musculoskeletal: Positive for arthralgias. Negative for joint swelling. Skin: Negative for rash and wound. Neurological: Negative for headaches. Psychiatric/Behavioral: Negative for agitation. The patient is not nervous/anxious. Physical Exam Filed Vitals: 02/22/19 0949 BP: (!) 155/93 Pulse: 70 Resp: 18 Temp: 97.8 ??F (36.6 ??C) TempSrc: Temporal SpO2: 97% Weight: 119.7 kg (264 lb) Height: 6' 2 (1.88 m) Physical Exam Constitutional: He is oriented to person, place, and time. He appears well-developed. HENT: Head: Normocephalic. Right Ear: Tympanic membrane, external ear and ear canal normal. Left Ear: Tympanic membrane, external ear and ear canal normal. Mouth/Throat: Posterior oropharyngeal erythema present. No oropharyngeal exudate or posterior oropharyngeal edema. Eyes: Pupils are equal, round, and reactive to light. Cardiovascular: Normal rate and regular rhythm. Pulmonary/Chest: Effort normal and breath sounds normal. Musculoskeletal: Normal range of motion. Neurological: He is alert and oriented to person, place, and time. Skin: Skin is warm and dry. Skin tags to mid and upper arms Psychiatric: He has a normal mood and affect. Nursing note and vitals reviewed. Diagnostic Studies / Procedures ELECTROCARDIOGRAMS: No results found for this visit on 02/22/19. LABORATORY STUDIES: Results for orders placed or performed during the hospital encounter of 02/22/19 POCT glucose Result Value Ref Range WHOLE BLOOD GLUCOSE 94 70 - 100 mg/dL POCT glucose Result Value Ref Range GLUCOSE POC 94 70 - 99 mg/dL IMAGING STUDIES No orders to display ED Course / Medical Decision Making MDM Number of Diagnoses or Management Options Congestion of both ears: Sore throat: Diagnosis management comments: Patient given prescription for Coricidin as he has tried other therapies and states antihistamines do not work for him or he cannot tolerate them. Patient also insisting he needs antibiotics for his external ear canals as he was using swimmer's ear and this was causing a burning ringing sensation. Advised to follow-up with PCP. Nontoxic exit exam, 97% on room air, this is normal Clinical Impression Congestion of both ears (Primary) Sore throat Disposition: Discharge RAINA Xavier 02/22/19 1549 Cosigned by Dave Ramsey MD at 02/22/2019 3:53 PM CDT * Venus Noel RN - 02/22/2019 9:49 AM CDT Patient to with c/o bilateral ear pain. Seen and treated about 3 weeks ago for ear infection andsinus infection a few weeks ago. Followed with pcp who told him it was fluid. Continues with pain. documented in this encounter Plan of Treatment Not on file documented as of this encounter Procedures Procedure Name Priority Date/Time Associated Diagnosis Comments POCT GLUCOSE - WEIR DOCKED DEVICE STAT 02/22/2019 10:38 AM CDT POCT GLUCOSE - WEIR DOCKED DEVICE Routine 02/22/2019 10:36 AM CDT documented in this encounter Results * POCT glucose (02/22/2019 10:38 AM CDT) GLUCOSE WHOLE BLOOD 94 70 - 100 mg/dL [facility] us Luna M Schmees SPECIALTY PLANT SUPERVISOR POCT ORDERABLES - DEVICE Fi nal Result [facility] [address] [place] [address], * POCT glucose (02/22/2019 10:36 AM CDT) [facility] GLUCOSE POC 94 70 - 99 mg/dL 02/22/2019 10:38 AM CDT [facility] ORDERS INTERFACE 02/22/2019 10:3 6 AM CDT us Luna Osorio SPECIALTY PLANT SUPERVISOR POCT ORDERABLES - DEVICE Fi nal Result [facility] ORDERS INTERFACE US documented in this encounter Visit Diagnoses Diagnosis Congestion of both ears- Primary Sore throat Acute pharyngitis documented in this encounter Care Teams Bible Reader Relationship Specialty Start Date End Date None, Provider, PCP - General 06/03/18 08/24/19 documented as of this encounter
--- OUTSIDE RECORDS SUMMARY | 2024-09-10 03:48 | XMS_ITS | Encounter Summary ---
Author Organization [facility] Address [address] [place] [address]. [place], [place] [id number] [place] [address] Care Team Providers Care Fiberglass Fabricator Name Role Phone Radha Palafox NP Primary Care Provider [phone] Reason for Visit * Reason Comments Headache Encounter Details Date Type Department Care Team (Latest Contact Info) Description 12/11/2019 5:20 PM CDT - 12/11/2019 5:48 PM CDT [place] [address] William Sanchez NP Headache Discharge Disposition: Home or Self Care (Routine [...] have Coronavirus / COVID-19? No / Unsure 12/11/2019 5:19 PM CDT documented as of this encounter Last Filed Vital Signs Vital Sign Reading Time Taken Comments Blood Pressure 152/94 12/11/2019 5:32 PM CDT Pulse 64 12/11/2019 5:32 PM CDT Temperature 36.4 ??C (97.5 ??F) 12/11/2019 5:32 PM CD T Respiratory Rate 18 12/11/2019 5:32 PM CDT Oxygen Saturation 99% 12/11/2019 5:32 PM CDT Inhaled Oxygen Concentration - - Weight 119.3 kg (263 lb) 12/11/2019 5:32 PM CDT Height 185.4 cm (6' 1 ) 12/11/2019 5:32 PM CDT Body Mass Index 34.7 12/11/2019 5:32 PM CDT documented in this encounter Discharge Instructions * Discharge Instructions* William Sanchez NP - 12/11/2019 5:32 PM CDT Continue antihistamines daily. Take tylenol every 6 to 8 hours to treat headaches. Do not take ibuprofen. This elevates your blood pressure. Drink plenty of water. Take your blood pressure medications daily. * Attachments The following attachments cannot be sent through Care Everywhere. * Sinusitis Discharge Instructions, Adult (Sudanese) * Sinus Headache Discharge Instructions (Sudanese) documented in this encounter Medications at Time of Discharge diphenhydrAMINE 25 MG capsule Take 1 capsule (25 mg total) by mouth every 6 (six) hours as needed for Itching. simethicone (GAS-X) 80 MG chewable tablet Chew 80 mg by mouth every 6 (six) hours as needed for Flatulence. albuterol sulfate HFA 108 (90 Base) MCG/ACT inhaler Inhale 2 puffs into the lungs every 4 (four) hours as needed for Wheezing. 1 Inhaler 12/12/2018 12/12/2019 alprazolam 2 MG tablet Take 1 tablet (2 mg total) by mouth 3 (three) times daily as needed. 30 tablet 11/30/2019 12/20/2019 amoxicillin 875 MG tablet Take 875 mg by mouth 2 (two) times daily. 0 06/19/2019 04/12/2021 atenolol 100 MG tablet Take 1 tablet (100 mg total) by mouth daily. 30 tablet 12/12/2018 01/05/2020 meclizine 25 MG tablet Take 25 mg by mouth 3 (three) times daily as needed. 05/22/2024 olopatadine 0.1 % ophthalmic solution Place 1 drop into both eyes 2 (two) times daily. 5 mL 08/25/2019 05/22/2024 omeprazole 40 MG capsule Take 1 capsule (40 mg total) by mouth daily. 05/22/2024 documented as of this encounter ED Notes * William Howard Sanchez, VENTURA - 12/11/2019 5:40 PM CDT ED NOTE Chief Complaint Chief Complaint Patient presents with ??? Headache History of Present Illness 49 yo M presents with c/o PND, headaches for 5 days. Wants BP checked. States was 160/100 at home. Called his PCP regarding elevated reading and she told him he needs to take his BP medication consistently. Admits does not take it right everyday. Taking ibuprofen, tylenol for pain. Also taking claritin and flonase daily. States his PCP told him to come here to have BP checked. Also wants xanax refilled. Has called multiple times to get xanax refilled and was told over the phone that we will notfill it. All systems reviewed and negative except as noted above. Medical History ALLERGIES: Allergies Allergen Reactions ??? Clindamycin Shortness of Breath ??? Pepcid [Famotidine] Shortness of Breath Iv pepcid only ??? Bactrim [Sulfamethoxazole-Trimethoprim] Hives ??? Contrast [Iodine] Hives ??? Glimepiride Hives ??? Keflex [Cephalexin] Hives ??? Levofloxacin Unknown ??? Lidocaine Angioedema ??? Morphine Hallucinations ??? Oxycodone Hives ??? Zithromax [Azithromycin] Hives ??? Ketorolac Tromethamine GI Upset ??? Paxil [Paroxetine] Anxiety MEDICATIONS: Prior to Admission medications Medication Sig Start Date End Date Taking? Authorizing Provider albuterol sulfate HFA 108 (90 Base) MCG/ACT inhaler Inhale 2 puffs into the lungs every 4 (four) hours as needed for Wheezing. 12/12/18 12/12/19 Charly Durant PA-C alprazolam 2 MG tablet Take 1 tablet (2 mg total) by mouth 3 (three) times daily as needed. 11/30/19RAINA López amoxicillin 875 MG tablet Take 875 mg by mouth 2 (two) times daily. 06/19/19 Doc Abstract atenolol 100 MG tablet Take 1 tablet (100 mg total) by mouth daily. 12/12/18 Charly Durant PA-C diphenhydrAMINE 25 MG capsule Take 25 mg by mouth every 6 (six) hours as needed for Itching. Doc Abstract meclizine 25 MG tablet Take 25 mg by mouth 3 (three) times daily as needed. Doc Abstract olopatadine 0.1 % ophthalmic solution Place 1 [...] of Systems Constitutional: Negative. HENT: Positive for postnasal drip and rhinorrhea. Eyes: Negative. Respiratory: Negative. Cardiovascular: Negative. Gastrointestinal: Negative. Genitourinary: Negative. Musculoskeletal: Negative. Skin: Negative. Neurological: Positive for headaches. All other systems reviewed and are negative. Physical Exam Filed Vitals: 12/11/19 1732 BP: (!) 152/94 Pulse: 64 Resp: 18 Temp: 97.5 ??F (36.4 ??C) TempSrc: Oral SpO2: 99% Weight: 119.3 kg (263 lb) Height: 6' 1 (1.854 m) Physical Exam Constitutional: He is oriented to person, place, and time. He appears well- developed and well-nourished. He is active. Non-toxic appearance. He does not have a sickly appearance. He does not appear ill. No distress. HENT: Head: Normocephalic. Right Ear: Tympanic membrane, external ear and ear canal normal. Left Ear: Tympanic membrane, external ear and ear canal normal. Nose: Rhinorrhea (clear) present. Mouth/Throat: Uvula is midline, oropharynx is clear and moist and mucous membranes are normal. No oropharyngeal exudate, posterior oropharyngeal edema, posterior oropharyngeal erythema or tonsillar abscesses. Tonsils are 0 on the right. Tonsils are 0 on the left. No tonsillar exudate. Eyes: Conjunctivae are normal. Neck: Normal range of motion. Cardiovascular: Normal rate, regular rhythm and normal heart sounds. Pulmonary/Chest: Effort normal and breath sounds normal. Musculoskeletal: Normal range of motion. Lymphadenopathy: He has no cervical adenopathy. Neurological: He is alert and oriented to person, place, and time. Skin: Skin is warm and dry. Psychiatric: He has a normal mood and affect. His behavior is normal. Judgment and thought content normal. Nursing note and vitals reviewed. Diagnostic Studies / Procedures ELECTROCARDIOGRAMS: No results found for this visit on 12/11/19. LABORATORY STUDIES: No results found for this visit on 12/11/19. IMAGING STUDIES No orders to display ED Course / Medical Decision Making MDM Number of Diagnoses or Management Options Acute sinusitis: Blood pressure check: Frequent headaches: Diagnosis management comments: Recommend pt follow up with PCP. ED Course as of Dec 10 1744 Mon Dec 11, [id number] This is a normal finding. SpO2: 99 % [AP] ED Course User Index [AP] William Sanchez NP Medications - No data to display Clinical Impression Acute sinusitis (Primary) Frequent headaches Blood pressure check Current Discharge Medication List Disposition: Discharge Follow-Up: Radha Palafox NP [address] [address] Schedule an appointment as soon as possible for a visit WILLIAM SANCHEZ NP 12/11/2019 William Sanchez NP 12/11/191744 Cosigned by Dave Ramsey MD at 12/11/2019 6:06 PM CDT * Alexandria Sexton RN - 12/11/2019 5:36 PM CDT PT TO UC WITH C/O HEADACHES AND ELEVATED BLOOD PRESSURE. PT DENIES ANY SOB, CHEST PAIN OR NAUSEA, HEADACHES OFF AND ON. documented in this encounter Plan of Treatment Not on file documented as of this encounter Visit Diagnoses Diagnosis Acute sinusitis- Primary Acute sinusitis, unspecified Frequent headaches Blood pressure check Screening for hypertension documented in this encounter Care Teams Fiberglass Fabricator Relationship Specialty Start Date End Date Radha Palafox NP PCP - General NURSE PRACTITIONER 08/25/19 12/30/19 documented as of this encounter
--- OUTSIDE RECORDS SUMMARY | 2024-09-10 03:48 | XMS_ITS | Encounter Summary ---
Author Organization [facility] Address [address] [place] [address]. [place], [place] [id number] [place] [address] Care Team Providers Care Tank Insulator Rubber Name Role Phone None, Provider Primary Care Provider Unavaila ble Reason for Visit * Reason Comments Med Refills Encounter Details Date Type Department Care Team (Late st Contact Info) Description 01/04/2020 11:46 PM CDT - 01/05/2020 12:39 AM CDT Emergency [facility] [place] [address] Ric Curran MD [address] [place] [address] Med Refills Discharge Disposition: Home or Self Care (Routine [...] AM CDT documented as of this encounter Last Filed Vital Signs Vital Sign Reading Time Taken Comments Blood Pressure 178/108 01/04/2020 11:45 PM CDT Pulse 78 01/04/2020 11:45 PM CDT Temperature 36.5 ??C (97.7 ??F) 01/04/2020 11:45 PM C DT Respiratory Rate 18 01/04/2020 11:45 PM CDT Oxygen Saturation 98% 01/04/2020 11:45 PM CDT Inhaled Oxygen Concentration - - Weight 128.8 kg (284 lb) 01/04/2020 11:45 PM CDT Height 188 cm (6' 2 ) 01/04/2020 11:45 PM CDT Body Mass Index 36.46 01/04/2020 11:45 PM CDT documented in this encounter Discharge Instructions * Discharge Instructions* Ric Curran MD - 01/05/2020 12:28 AM CDT Emergency Departments (ED) provide medical screening exams and initial stabilizing treatment of emergency medical conditions. Medicine is an inexact science and many conditions cannot be diagnosed orcompletely treated during a single ED visit. Your treating healthcare provider(s) today feel your condition has been stabilized so further care as an outpatient is reasonable. Emergency care does notsubstitute for complete, ongoing, or follow-up care by your primary care physician or microsoft bi consultant. Your medication list was reviewed prior to treatment, [...] such as many narcotic drug combinations and chau-efr-ydeytqk cold medicines. Your feedback is important to us. Please fill out the survey you will get in the mail. We need yourinput to give you the best care possible! With your feedback we??ll know where we need to focus ourefforts to provide very good service to our patients! * Attachments The following attachments cannot be sent through Care Everywhere. * High Blood Pressure Discharge Instructions (Armenian) * Anxiety Discharge Instructions, Adult (Armenian) documented in this encounter Medications at [...] 6 (six) hours as needed for Flatulence. amoxicillin 500 MG capsule Take 1 capsule (500 mg total) by mouth 2 (two) times daily for 10 days. 20 capsule 12/31/2019 01/10/2020 amoxicillin 875 MG tablet Take 875 mg by mouth 2 (two) times daily. 0 06/19/2019 04/12/2021 atenolol 100 MG tablet Take 1 tablet (100 mg total) by mouth daily. 30 tablet 01/05/2020 08/08/2022 meclizine 25 MG tablet Take 25 mg by mouth 3 (three) times daily as needed. 05/22/2024 olopatadine 0.1 % ophthalmic solution Place 1 drop into both eyes 2 (two) times daily. 5 mL 08/25/2019 05/22/2024 omeprazole 40 MG capsule Take 1 capsule (40 mg total) by mouth daily. 05/22/2024 documented as of this encounter ED Notes * Iwona Almanzar RN - 01/05/2020 12:[address] Curran that social services counselor was successful at obtaining him a PCP with DR. Sheffield on 01/09/2020 and was instructed to go to this appointment for his med refills. IWONA ALMANZAR RN * Ric Curran MD - 01/04/2020 11:55 PM CDT Chief Complaint Chief Complaint Patient presents with ??? Med Refills History of Present Illness Chief complaint: Med refill Narrative: The patient is a very pleasant 49-year-old male examined in the emergency department. This is the patient's second visit for medication refills specifically requesting scheduled benzodiazepines. Onset: Chronic Palliative factors: None Provoking factors: Loss of prior medical access Quality: Medication refill Radiation: None Severity: Mild Time course: Chronic Medical History ALLERGIES: Allergies Allergen Reactions ??? [...] (anxiety). 01/05/20 Yes Ric Curran MD atenolol 100 MG tablet Take 1 tablet (100 mg total) by mouth daily. 01/05/20 Yes Ric Curran MD amoxicillin 500 MG capsule Take 1 capsule (500 mg total) by mouth 2 (two) times daily for 10 days. 12/31/19 01/10/20 Avelina Salcedo, RAINA amoxicillin 875 MG tablet Take 875 mg by mouth 2 (two) times daily. 06/19/19 Doc Abstract diphenhydrAMINE 25 MG capsule Take [...] No Review of Systems Review of Systems REVIEW OF SYSTEMS: The patient denies fevers, chills, or sweats. Denies nausea, vomiting, diarrhea,constipation, or abdominal pain. Denies chest pain, shortness of breath, dyspnea on exertion, or palpitations. Denies headache, loss of consciousness, or seizures. Denies dysuria or hematuria. Ten systems reviewed and negative except as described above or in the HPI. Physical Exam Filed Vitals: 01/04/20 2345 BP: (!) 178/108 Pulse: 78 Resp: 18 Temp: 97.7 ??F (36.5 ??C) TempSrc: Oral SpO2: 98% Weight: 128.8 kg (284 lb) Height: 6' 2 (1.88 m) Physical Exam VITALS: Filed Vitals: 01/04/20 2345 BP: (!) 178/108 Pulse: 78 Resp: 18 Temp: 97.7 ??F (36.5 ??C) TempSrc: Oral SpO2: 98% Weight: 128.8 kg (284 lb) Height: 6' 2 (1.88 m) VITALS: Reviewed GENERAL: The patient is a very pleasant 49-year-old male examined in the Emergency Department. Patient is in no acute distress at the time of my exam. EYES: Pupils are PERRL. Eyes focus and track. Sclerae are nonicteric and not injected. HENT: Normocephalic, atraumatic. The face is symmetric, round, and fully expressive. Hearing is adequate to conversational voice. Ears are without discharge. Nares are grossly patent, and also without discharge. Mucous membranes are moist. NECK: No JVD, tracheal deviation, or subcutaneous emphysema is noted. RESPIRATIONS: No respiratory distress. Pt is breathing easily, speaking in complete sentences. EXTREMITIES: No clubbing, cyanosis, edema, or evidence of trauma is noted. NEURO: No gross focal neuro deficits are appreciated. GCS = 15. No seizure activity is noted in theemergency department. PSYCHIATRIC: The patient's mood, affect and interaction are appropriate to setting. SKIN: Normal color, temperature, and turgor noted throughout. Diagnostic Studies / Procedures No advanced testing indicated. ED Course / Medical Decision Making I estimate there is LOW risk for ACUTE CORONARY SYNDROME, INTRACRANIAL HEMORRHAGE, MALIGNANT DYSRHYTHMIA, MENINGITIS, PERICARDIAL TAMPONADE, PNEUMOTHORAX, PNEUMONIA, PULMONARY EMBOLISM, SEPSIS, SUBARACHNOID HEMORRHAGE, SUBDURAL HEMATOMA, or STROKE, thus I consider the discharge disposition reasonable. We have discussed the diagnosis and risks, and we agree with discharging home to follow-up with their primary doctor. We also discussed returning to the Emergency Department immediately if new or worsening symptoms occur. We have discussed the symptoms which are most concerning (e.g., changing or worsening pain, weakness, vomiting, fever) that necessitate immediate return. The patient is displaying manipulative behavior. He tells several lengthy descriptions of how he requires benzodiazepines. Even when offered a short course, he attempts to negotiate for even longer. Given his longstanding history with the medication I will provide a very short course and have admonished the patient that this will be the last refill of a scheduled medication that will be provided in our emergency department for a chronic condition. Clinical Impression Hypertension (Primary) Anxiety Disposition: Discharge I, Shaila Lim, acting as a scribe, am personally taking down the notes in the presence of Dr. Ric Curran MD. Take no action on this note until reviewed and authenticated by the physician. Ric Curran MD 01/05/20 0320 * Regina Sanders RN - 01/04/2020 11:42 PM CDT Patient arrived to er via triage. States spoke with social services counselor earlier. States is out of his medications. Is in search of getting a new doctor. documented in this encounter Plan of Treatment Not on file documented as of this encounter Visit Diagnoses Diagnosis Hypertension- Primary Unspecified essential hypertension Anxiety Anxiety state, unspecified documented in this encounter Care Teams Tank Insulator Rubber Relationship Specialty Start Date End Date None, Provider, PCP - General 12/31/19 documented as of this encounter
--- OUTSIDE RECORDS SUMMARY | 2024-09-10 03:48 | XMS_ITS | Encounter Summary ---
Author Organization [facility] Address [address] [place] [address]. [place], [place] [id number] [place], [place] [id number] Care Team Providers Care Tarp Repairer Name Role Phone None, Provider MD Primary Care Provider Unavaila ble Reason for Visit * Reason Comments Headache FRONTAL HEADACHE X'S 5 DAYS, PT TRIED EXCEDRIN, TYLENOL, IBUPROFEN, Ear Problem TRISTAN EARS POPPING, WI TH PAIN TO LEFT EAR Encounter Details Date Type Department Care Team (Latest Contact Info) Description 03/08/2019 8:56 AM CDT - 03/08/2019 9:34 AM CDT Hospital Encounter [address] [address] [place]re, BICYCLE RACER-C Agusto, Yee Briggs, [facility] [address] [place], [place] [id number] Headache (FRONTAL HEADACHE X'S 5 DAYS, PT TRIED EXCEDRIN, TYLENOL, IBUPROFEN, ); Ear Problem (TRISTAN EARS POPPING, WITH PAIN TO LEFT EAR) Discharge Disposition: Home or Self Care (Routine [...] Sign Reading Time Taken Comments Blood Pressure 152/93 03/08/2019 9:01 AM CDT Pulse 64 03/08/2019 9:01 AM CDT Temperature 36.3 ??C (97.4 ??F) 03/08/2019 9:01 AM CD T Respiratory Rate 18 03/08/2019 9:01 AM CDT Oxygen Saturation 98% 03/08/2019 9:04 AM CDT Inhaled Oxygen Concentration - - Weight 113.4 kg (250 lb) 03/08/2019 9:01 AM CDT Height 188 cm (6' 2 ) 03/08/2019 9:01 AM CDT Body Mass Index 32.1 03/08/2019 9:01 AM CDT documented in this encounter Discharge Instructions * Discharge Instructions* RAINA Bocanegra - 03/08/2019 9:26 AM CDT Start steroids and take as directed. Continue sinus rinses and Flonase. Rest and maintain hydrationwith frequent fluids. If any point you feel your symptoms are not improving over the next 7 to 10 days or worsen follow-up with primary care as discussed. * Attachments The following attachments cannot be sent through Care Everywhere. * Sinusitis in Adults (Guatemalan) * Sinus Headache Discharge Instructions (Guatemalan) documented in this encounter [...] by mouth daily. 30 tablet 12/12/2018 0 citalopram 40 MG tablet Take 40 mg by mouth daily. 9 DM-APAP-CPM (CORICIDIN HBP) 10-325-2 MG Tab Take 1 tablet by mouth 2 (two) times daily as needed. 840 tablet 02/22/2019 9 fluticasone propionate (FLONASE) 50 MCG/ACT nasal spray 2 sprays by Nasal route daily. 16 g 12/12/2018 0 fluticasone propionate (FLONASE) 50 MCG/ACT nasal spray 1 spray by Nasal route daily. 16 g 03/08/2019 9 meclizine 25 MG tablet Take 25 mg by mouth 3 (three) times daily as needed. 4 omeprazole 40 MG capsule Take 1 capsule (40 mg total) by mouth daily. 4 predniSONE 20 MG tablet Take 2 tablets (40 mg total) by mouth daily for 5 days. 10 tablet 03/08/2019 9 documented as of this encounter ED Notes * Eunice Peguero RN - 03/08/2019 9:25 AM CDT C/o frontal headache x5 days, bilateral ears popping, and left ear pain. * RAINA Bocanegra - 03/08/2019 9:24 AM CDT Chief Complaint Chief Complaint Patient presents with ??? Headache FRONTAL HEADACHE X'S 5 DAYS, PT TRIED EXCEDRIN, TYLENOL, IBUPROFEN, ??? Ear Problem TRISTAN EARS POPPING, WITH PAIN TO LEFT EAR History of Present Illness 49-year-old male to urgent care with concerns about frontal headache and bilateral ear popping/pain. Symptoms have been ongoing for the last 5 days and coupled with posterior headaches and acute on chronic neck pain at times. Patient feels like his neck pain is under control after multiple trips tosee the chiropractor. Denies any documented fevers but has felt chilled and fatigued. Denies any recent trauma or travel. No one else around him has been sick. History provided by: Patient Headache This is a new problem. Episode onset: 5 days. The headache is associated with nothing. The quality of the pain is described as throbbing. The pain does not radiate. Associated symptoms include malaise/fatigue. Pertinent negatives include no anorexia, no fever, no chest pressure, no near-syncope, noorthopnea, no palpitations, no syncope, no shortness of breath, no nausea and no vomiting. He has tried acetaminophen and NSAIDs for the symptoms. Ear Problem Associated symptoms: congestion, ear pain, fatigue, headaches and rhinorrhea Associated symptoms: no fever, no nausea, no shortness of breath, no sore throat and no vomiting Medical History ALLERGIES: Allergies Allergen Reactions ??? [...] hours as needed for Wheezing. 12/12/18 12/12/19 Yes Charly Durant PA-C alprazolam 2 MG tablet Take 2 mg by mouth 4 (four) times daily as needed. Yes Doc Abstract atenolol 100 MG tablet Take 1 tablet (100 mg total) by mouth daily. 12/12/18 Yes Charly Durant PA-C citalopram 40 MG tablet Take 40 mg by mouth daily. Yes Doc Abstract diphenhydrAMINE 25 MG capsule Take 25 mg by mouth every 6 (six) hours as needed for Itching. Yes Doc Abstract fluticasone propionate (FLONASE) 50 MCG/ACT nasal spray 2 sprays by Nasal route daily. 12/12/18 12/12/19 Yes Charly Durant PA-C fluticasone propionate (FLONASE) 50 MCG/ACT nasal spray 1 spray by Nasal route daily. 03/08/19 Yes YeeRAINA Lorenz meclizine 25 MG tablet Take 25 mg by mouth 3 (three) times daily as needed. Yes Doc Abstract omeprazole 40 MG capsule Take 40 mg by mouth daily. Yes Doc Abstract predniSONE 20 MG tablet Take 2 tablets (40 mg total) by mouth daily for 5 days. 03/08/19 03/13/19 Yes RAINA Bocanegra simethicone (GAS-X) 80 MG chewable tablet Chew 80 mg by mouth every 6 (six) hours as needed for Flatulence. Yes Doc Abstract acetaminophen [address] 650 mg rectally every 4 (four) hours as needed for Fever. Doc Abstract DM-APAP-CPM (CORICIDIN HBP) 10-325-2 MG Tab Take 1 tablet by mouth 2 (two) times daily as needed. 02/22/19 RAINA Xavier PAST MEDICAL HISTORY: Past Medical History: Diagnosis [...] Systems Review of Systems Constitutional: Positive for chills, fatigue and malaise/fatigue. Negative for fever. HENT: Positive for congestion, ear pain, postnasal drip, rhinorrhea, sinus pressure and sinus pain.Negative for ear discharge and sore throat. Respiratory: Negative for shortness of breath. Cardiovascular: Negative for palpitations, orthopnea, syncope and near-syncope. Gastrointestinal: Negative for anorexia, nausea and vomiting. Neurological: Positive for headaches. Negative for dizziness and seizures. All other systems reviewed and are negative. Physical Exam Filed Vitals: 03/08/19 0901 03/08/19 0904 BP: (!) 152/93 Pulse: 64 Resp: 18 Temp: 97.4 ??F (36.3 ??C) TempSrc: Temporal SpO2: 98% 98% Weight: 113.4 kg (250 lb) Height: 6' 2 (1.88 m) Physical Exam Constitutional: He is oriented to person, place, and time. Vital signs are normal. He appears well-developed and well-nourished. He is cooperative. Non- toxic appearance. He does not have a sickly appearance. He does not appear ill. No distress. 49-year-old male resting in chair and providing history without difficulty. HENT: Head: Normocephalic and atraumatic. Right Ear: External ear normal. Tympanic membrane is not injected and not erythematous. A middle ear effusion is present. Left Ear: External ear normal. Tympanic membrane is not injected and not erythematous. A middle eareffusion is present. Nose: Mucosal edema and rhinorrhea present. Right sinus exhibits frontal sinus tenderness. Left sinus exhibits frontal sinus tenderness. Mouth/Throat: Oropharynx is clear and moist. No oropharyngeal exudate. Eyes: Conjunctivae and EOM are normal. Pupils are equal, round, and reactive to light. Right eye exhibits no discharge. Left eye exhibits no discharge. Neck: Normal range of motion. Neck supple. Cardiovascular: Normal rate, regular rhythm, normal heart sounds and intact distal pulses. No murmur heard. Pulmonary/Chest: Effort normal and breath sounds normal. No respiratory distress. Musculoskeletal: Normal range of motion. Ambulatory and moving all extremities. Neurological: He is alert and oriented to person, place, and time. Skin: Skin is warm and dry. Capillary refill takes less than 2 seconds. No rash noted. He is not diaphoretic. No erythema. No pallor. Nursing note and vitals reviewed. Diagnostic Studies / Procedures ELECTROCARDIOGRAMS: No results found for this visit on 03/08/19. LABORATORY STUDIES: No results found for this visit on 03/08/19. IMAGING STUDIES No orders to display ED Course / Medical Decision Making MDM Number of Diagnoses or Management Options Sinus headache: Sinusitis: Diagnosis management comments: Education reassurance provided about chronic sinus disease and management. Patient apprehensive to try steroids due to history of feeling jittery but would like to try them because of the intermittent headaches. Clinical Impression Sinusitis (Primary) Sinus headache Disposition: Discharge RAINA Bocanegra 03/08/19 0933 Cosigned by Dave Ramsey MD at 03/08/2019 3:58 PM CDT documented in this encounter Plan of Treatment Not on file documented as of this encounter Visit Diagnoses Diagnosis Sinusitis- Primary Unspecified sinusitis (chronic) Sinus headache Headache documented in this encounter Care Teams Tarp Repairer Relationship Specialty Start Date End Date None, Provider, PCP - General 06/03/18 08/24/19 documented as of this encounter
--- OUTSIDE RECORDS SUMMARY | 2024-09-10 03:48 | XMS_ITS | Encounter Summary ---
Author Organization [facility] Address [address] [place] [address]. [place] [address] Care Team Providers Care Store Facility Technician Name Role Phone None, Provider Primary Care Provider Alisson oliva Encounter Details Date Type Department Care Team (Latest Contact Info) Description 03/20/2020 Travel Social History Tobacco Use Types Packs/Day [...] have Coronavirus / COVID-19? No / Unsure 03/20/2020 12:44 AM CDT documented as of this encounter Plan of Treatment Not on file documented as of this encounter Visit Diagnoses Not on filedocumented in this encounter Care Teams Store Facility Technician Relationship Specialty Start Date End Date None, ProviderMD PCP - General 12/31/19 documented as of this encounter
--- OUTSIDE RECORDS SUMMARY | 2024-09-10 03:48 | XMS_ITS | Encounter Summary ---
Author Organization [facility] Address [address] [place] [address]. [place], [place] [id number] [place] [address] Care Team Providers Care After School Program Assistant Name Role Phone None, Provider MD Primary Care Provider Unavaila ble Reason for Visit * Reason Onset Date Comments Care Management 01/04/2020 Encounter Details Date Type Department Care Team (Late st Contact Info) Description 01/04/[address] [facility] [place] [address] Lee Ann Aguilar LCSW Care Management Social History Tobacco Use Types Packs/Day Years [...] AM CDT documented as of this encounter Progress Notes * Balta Cueva RN - 01/04/2020 5:12 PM CDT This RN spoke with the patient. He has an appointment with Dr. Sheffield on Wednesday01/09/20. He has been attempting to find a PCP. I informed the patient that he can come in and be seen because he states he does not have enough medication until the appointment. I told the patient that I cannot make any promises and he needs to be seen that we will not prescribe any medications unless he is seen and that the provider will decide what is to be done. This can result in or possibly not result in a prescription for medications. * Lee Ann Aguilar LCSW - 01/04/2020 4:59 PM CDT pattern cutter Mike referred above pt to this abstract writer to see if GLOBAL PROGRAM DIRECTOR can assist pt in finding new Primary Care Physician. GLOBAL PROGRAM DIRECTOR spoke to pt who states that he needs refills on all of his medications. Pt states one of the medications is xanax which he has been taking for several years. Pt concerned about withdrawal sx if he runs out. GLOBAL PROGRAM DIRECTOR acknowledged pt's concern and informed pt that abstract writer may assist in calling doctor offices that take pt's insurance. ?? Pt also states that he is [facility] with [facility] as a pt they will not see. Pt states they cannot provide pt with a reason and administration has not been able to correct this. GLOBAL PROGRAM DIRECTOR explained that because of his insurance, this will greatly limit his options. ?? GLOBAL PROGRAM DIRECTOR also explained to pt that abstract writer will attempt to find an office that can see pt next week, but that would likely be the soonest possible. ?? Pt states he may have to come back to ER if unable to get his medications filled. This abstract writer and pattern cutter Mervin both advised pt that he is welcome to come to the ER, but it will be up to the provider that sees him to determine if they will refill any medication. ?? GLOBAL PROGRAM DIRECTOR will continue to assist pt with provider search until all options are exhausted. GLOBAL PROGRAM DIRECTOR stressed to pt we are doing what we can to assist, but may not be able to find PCP that can see him as soon janelle wants. documented in this encounter Plan of Treatment Not on file documented as of this encounter Visit Diagnoses Not on filedocumented in this encounter Care Teams After School Program Assistant Relationship Specialty Start Date End Date None, Provider, PCP - General 12/31/19 documented as of this encounter
--- OUTSIDE RECORDS SUMMARY | 2024-09-10 03:48 | XMS_ITS | Encounter Summary ---
Author Organization [facility] Address [address] [place] [address]. [place] [address] Care Team Providers Care Relations Director Name Role Phone None, Provider MD Primary Care Provider Unavaila ble Reason for Visit * Reason Comments Anxiety Encounter Details Date Type Department Care Team ([facility] st Contact Info) Description 12/31/2019 12:44 PM CDT - 12/31/2019 1:55 PM CDT Emergency [facility] Emergency Room [address] [place], [place] [address] Avelina Salcedo, MESH CUTTER [address] [place] [address] Anxiety Discharge Disposition: Home or Self Care (Routine [...] Sign Reading Time Taken Comments Blood Pressure 151/104 12/31/2019 1:53 PM CDT Pulse 72 12/31/2019 12:42 PM CDT Temperature 36.7 ??C (98 ??F) 12/31/2019 12:42 PM CDT Respiratory Rate 24 12/31/2019 1:53 PM CDT Oxygen Saturation 97% 12/31/2019 12:42 PM CDT Inhaled Oxygen Concentration - - Weight - - Height - - Body Mass Index - - documented in this encounter Discharge Instructions * Discharge Instructions* RAINA Chakraborty - 12/31/2019 1:31 PM CDT ???Our practice is committed to providing you the very best in healthcare. We want to hear from you! Please fill out the survey you get from us. Your feedback is anonymous & helps us improve the patient experience for you and others in the community we serve.?? * Attachments The following attachments cannot be sent through Care Everywhere. * Anxiety Discharge Instructions, Adult ([place]) * Sinusitis Discharge Instructions, Adult ([place]) documented in this encounter Medications at Time of Discharge diphenhydrAMINE 25 MG capsule Take 1 capsule (25 mg total) by mouth every 6 (six) hours as needed for Itching. simethicone (GAS-X) 80 MG chewable tablet Chew 80 mg by mouth every 6 (six) hours as needed for Flatulence. ALPRAZolam 2 MG tablet Take 1 tablet (2 mg total) by mouth 3 (three) times daily as needed (anxiety). 12 tablet 12/31/2019 01/05/2020 amoxicillin 500 MG capsule Take 1 capsule [...] as of this encounter ED Notes * Avelina Salcedo, MESH CUTTER - 12/31/2019 1:17 PM CDT Chief Complaint Chief Complaint Patient presents with ??? Anxiety History of Present Illness 49 y m presents today requesting xanax for his anxiety. Pt states he has been on the medication for20 years plus, his psychiatrist recently dropped pt and states he did not care for his pcp so he islooking for another provider. Pt states he is having a difficult time with finding a provider r/t his hx. Pt denies si or hi, is calm and cooperative at this time. Medical History ALLERGIES: Allergies Allergen Reactions ??? [...] 3 (three) times daily as needed (anxiety). 12/31/19 Yes RAINA Chakraborty amoxicillin 875 MG tablet Take 875 mg [...] Systems Review of Systems Constitutional: Negative for chills, fatigue and fever. HENT: Negative for congestion, ear pain, postnasal drip, rhinorrhea, sinus pressure, sinus pain andsore throat. Eyes: Negative for pain. Respiratory: Negative for cough, chest tightness, shortness of breath and wheezing. Cardiovascular: Negative for chest pain and palpitations. Gastrointestinal: Negative for abdominal pain, diarrhea, nausea and vomiting. Genitourinary: Negative for dysuria, flank pain, frequency and urgency. Musculoskeletal: Negative for back pain and neck pain. Skin: Negative for rash. Psychiatric/Behavioral: The patient is nervous/anxious. All other systems reviewed and are negative. Physical Exam Filed Vitals: 12/31/19 1242 BP: (!) 151/100 Pulse: 72 Resp: 18 Temp: 98 ??F (36.7 ??C) TempSrc: Temporal SpO2: 97% Physical Exam Constitutional: He is oriented to person, place, and time. He appears well- developed and well-nourished. HENT: Head: Normocephalic. Right Ear: External ear normal. Left Ear: External ear normal. Nose: Nose normal. Mouth/Throat: Oropharynx is clear and moist. Eyes: Pupils are equal, round, and reactive to light. Conjunctivae and EOM are normal. Neck: Normal range of motion. Neck supple. Cardiovascular: Normal rate, regular rhythm, normal heart sounds and intact distal pulses. Pulmonary/Chest: Effort normal and breath sounds normal. Musculoskeletal: Normal range of motion. Neurological: He is alert and oriented to person, place, and time. Skin: Skin is warm and dry. Capillary refill takes less than 2 seconds. Psychiatric: He has a normal mood and affect. His behavior is normal. Judgment and thought content normal. Nursing note and vitals reviewed. Diagnostic Studies / Procedures ELECTROCARDIOGRAMS: No results found for this visit on 12/31/19. LABORATORY STUDIES: No results found for this visit on 12/31/19. IMAGING STUDIES No orders to display ED Course / Medical Decision Making MDM Diagnosis management comments: pt given a refill xanax qty #12, explained to pt that he will need f/u so that they may manage his medications. Pt verbalized understanding. Pulse oximetry interpreted by me: 97% on room air. Impression normal. Rhythm strip interpreted by me: Plan: - Labs - Meds I have discussed today's findings with the patient and provided information regarding the likely diagnosis. The patient has been given information regarding their treatment, a close follow-up is recommended as well as concerning symptoms for which they should seek urgent or emergent attention. I have expressed the the importance of seeking medical advice should there be any new, or worsening symptoms or persistence of their condition. The patient is stable at discharge and has verbalized understanding of these instructions. Clinical Impression Anxiety disorder (Primary) Medication refill Disposition: Discharge RAINA Chakraborty 12/31/19 1323 Cosigned by Joss Ha MD at 12/31/2019 6:37 PM CDT * Lorene Siegel RN - 12/31/2019 12:47 PM CDT Reports increase in chronic anxiety. Out of recently prescribed xanax. Also reports eval at [facility][note 3] today where he had confrontation with ERP. Denies si/hi. documented in this encounter Plan of Treatment Not on file documented as of this encounter Visit Diagnoses Diagnosis Anxiety disorder- Primary Anxiety state, unspecified Medication refill Issue of repeat prescriptions Nasal congestion Other diseases of nasal cavity and sinuses documented in this encounter Care Teams Relations Director Relationship Specialty Start Date End Date None, Provider, PCP - General 12/31/19 documented as of this encounter
--- OUTSIDE RECORDS SUMMARY | 2024-09-10 03:48 | XMS_ITS | Encounter Summary ---
Author Organization [facility] Address [address] [place] [address]. [place] [address] Care Team Providers Care Novelty Printing Machine Operator Name Role Phone Radha Palafox MANAGER SPORTS Primary Care Provider [phone] Encounter Details Date Type Department Care Team (Latest Contact Info) Description 11/30/2019 Travel Social History Tobacco Use Types Packs/Day [...] on filedocumented in this encounter Care Teams Novelty Printing Machine Operator Relationship Specialty Start Date End Date Radha Palafox, MANAGER SPORTS PCP - General NURSE PRACTITIONER 08/25/19 12/30/19 documented as of this encounter
--- OUTSIDE RECORDS SUMMARY | 2024-09-10 03:48 | XMS_ITS | Encounter Summary ---
Author Organization [facility] Address [address] [place] [address]. [place] [address] Care Team Providers Care Sole Leveling Machine Operator Name Role Phone None, Provider Primary Care Provider Alisson oliva Encounter Details Date Type Department Care Team (Latest Contact Info) Description 01/19/2020 Travel Social History Tobacco Use Types Packs/Day [...] have Coronavirus / COVID-19? No / Unsure 01/19/2020 6:10 PM CDT documented as of this encounter Plan of Treatment Not on file documented as of this encounter Visit Diagnoses Not on filedocumented in this encounter Care Teams Sole Leveling Machine Operator Relationship Specialty Start Date End Date None, ProviderMD PCP - General 12/31/19 documented as of this encounter
--- OUTSIDE RECORDS SUMMARY | 2024-09-10 03:48 | XMS_ITS | Encounter Summary ---
Author Organization [facility] Address [address] [place] [address]. [place], [place] [id number] [place] [id number] Care Team Providers Care Bullet Casting Operator Name Role Phone None, Provider MD Primary Care Provider Unavaila ble Reason for Visit * Reason Comments Rash to rectum Encounter Details Date Type Department Care Team (Latest Contact Info) Description 09/19/2018 6:11 PM FIELD INVESTIGATOR - 09/19/2018 7:47 PM FIELD INVESTIGATOR [facility] [address] [place], [place] [id number] Germán Dominguez, JANE [address] [facility] [address] [place] [id number] Rash (to rectum) Discharge Disposition: Home or Self Care (Routine Discharge) Social History Tobacco Use Types Packs/Day Years Used Date Smoking Tobacco: Never Smokeless Tobacco: Never Alcohol Use Standard Drinks/Week [...] Sign Reading Time Taken Comments Blood Pressure 138/90 09/19/2018 6:14 PM FIELD INVESTIGATOR Pulse 64 09/19/2018 6:14 PM FIELD INVESTIGATOR Temperature 37 ??C (98.6 ??F) 09/19/2018 6:14 PM FIELD INVESTIGATOR Respiratory Rate 16 09/19/2018 6:14 PM FIELD INVESTIGATOR Oxygen Saturation 98% 09/19/2018 6:14 PM FIELD INVESTIGATOR Inhaled Oxygen Concentration - - Weight 113.9 kg (251 lb) 09/19/2018 6:14 PM FIELD INVESTIGATOR Height 188 cm (6' 2 ) 09/19/2018 6:14 PM FIELD INVESTIGATOR Body Mass Index 32.23 09/19/2018 6:14 PM FIELD INVESTIGATOR documented in this encounter Discharge Instructions * Discharge Instructions* JANE Duke - 09/19/2018 7:21 PM FIELD INVESTIGATOR TAKE MEDICATIONS PRESCRIBED RETURN FOR WORSENING SYMPTOMS D INVESTIGATOR * Attachments The following attachments cannot be sent through Care Everywhere. * Ear Infections (Otitis Media) (Niuean) * Yeast Infection Discharge Instructions (Niuean) documented in this encounter Medications at Time of Discharge albuterol sulfate HFA 108 (90 BASE) MCG/ACT inhaler Inhale 2 puffs into the lungs every 6 (six) hours as needed for Wheezing. 9 alprazolam 2 MG tablet Take 2 mg by mouth 4 (four) times daily as needed. 0 amoxicillin 875 MG tablet Take 1 tablet (875 mg total) by mouth 2 (two) times daily for 10 days. 20 tablet 09/19/2018 9 atenolol 100 MG tablet Take 100 mg by mouth daily. 9 fluticasone propionate 50 MCG/ACT nasal spray 1 spray by Nasal route daily. 9 meclizine 25 MG tablet Take 25 mg by mouth 3 (three) times daily as needed. 4 nystatin cream Apply topically 2 (two) times daily. 30 g 09/19/2018 9 documented as of this encounter ED Notes * JANE Duke - 09/19/2018 7:16 PM CST Images from the original note were not included. History Chief Complaint Patient presents with ??? Rash to rectum Carlos Mcgee is a 48-year-old male who presented to the ED with complaints of multiple things. Patient having sinus pressure, congestion and left ear pain x 5 days. Hx of sinus issues and ear infection. Patient also has a rash to rectal area and groin that has been going on for weeks. No relief with otc hemorrhoid cream. No other complaints Past Medical History: Diagnosis Date ??? Anxiety ??? Benign carcinoid tumor of sigmoid colon ??? Depressed ??? Diabetes mellitus (HCC) type 2 ??? Heart attack (HCC) ??? Hypertension Prior to Admission medications Medication Sig Start Date End Date Taking? Authorizing Provider albuterol sulfate HFA 108 (90 BASE) MCG/ACT inhaler Inhale 2 puffs into the lungs every 6 (six) hours as needed for Wheezing. Yes Doc Abstract alprazolam 2 MG tablet Take 2 mg by mouth 4 (four) times daily as needed. Yes Doc Abstract amoxicillin 875 MG tablet Take 1 tablet (875 mg total) by mouth 2 (two) times daily for 10 days. 09/19/18 09/29/18 Yes JANE Duke atenolol 100 MG tablet Take 100 mg by mouth daily. Yes Doc Abstract fluticasone propionate 50 MCG/ACT nasal spray 1 spray by Nasal route daily. Yes Doc Abstract meclizine 25 MG tablet Take 25 mg by mouth 3 (three) times daily as needed. Yes Doc Abstract nystatin cream Apply topically 2 (two) times daily. 09/19/18 Yes JANE Duke Past Surgical History: Procedure Laterality Date ??? CARDIAC CATHETERIZATION ??? CHOLECYSTECTOMY Family History Problem Relation Age of Onset ??? Cancer Mother ??? Stroke Father Social History Tobacco Use ??? Smoking status: Never Smoker ??? Smokeless tobacco: Never Used Substance Use Topics ??? Alcohol use: No ??? Drug use: No Review of Systems Constitutional: Positive for chills. HENT: Positive for congestion, ear pain, sinus pressure and sinus pain. Eyes: Negative. Respiratory: Negative. Cardiovascular: Negative. Gastrointestinal: Negative. Endocrine: Negative. Genitourinary: Negative. Musculoskeletal: Negative. Skin: Positive for rash. Allergic/Immunologic: Negative. Neurological: Negative. Hematological: Negative. Psychiatric/Behavioral: Negative. All other systems reviewed and are negative. Physical Exam Filed Vitals: 09/19/18 1814 BP: 138/90 Pulse: 64 Resp: 16 Temp: 98.6 ??F (37 ??C) TempSrc: Oral SpO2: 98% Weight: 113.9 kg (251 lb) Height: 6' 2 (1.88 m) Physical Exam Constitutional: He is oriented to person, place, and time. He appears well- developed and well-nourished. HENT: Head: Normocephalic and atraumatic. Right Ear: External ear normal. A middle ear effusion is present. Left Ear: External ear normal. Tympanic membrane is erythematous. A middle ear effusion is present. Nose: Nose normal. Mouth/Throat: Oropharynx is clear and moist. Eyes: Conjunctivae and EOM are normal. Pupils are equal, round, and reactive to light. Neck: Normal range of motion. Neck supple. Cardiovascular: Normal rate, regular rhythm, normal heart sounds and intact distal pulses. Pulmonary/Chest: Effort normal and breath sounds normal. Abdominal: Soft. Bowel sounds are normal. Genitourinary: Musculoskeletal: Normal range of motion. Neurological: He is alert and oriented to person, place, and time. Skin: Skin is warm and dry. Nursing note and vitals reviewed. Labs Reviewed - No data to display No orders to display ED Course Procedures MDM Number of Diagnoses or Management Options Diagnosis management comments: Will treat with abx for left otitis and nystatin cream for yeast infection. Patient requesting refill of xanax but informed we are unable to fill r/t hospital policy ofcontrolled substances for chronic condition SNOMED CT(R) 1. Left otitis media OTITIS MEDIA OF LEFT EAR 2. Sinusitis SINUSITIS 3. Yeast infection of the skin CANDIDIASIS OF SKIN Disposition: Discharge JANE DUKE APNP 09/19/181921 D INVESTIGATOR * Jhoana Martinez RN - 09/19/2018 6:12 PM CST Patient c/o Rash to penis since . Having pain and itching to rectum. Used preperation h, tucks, hydrocortisone cream with no relief. Having chills. [place]arez and hurts. Now constipated. Did not take temp D INVESTIGATOR documented in this encounter Plan of Treatment Not on file documented as of this encounter Visit Diagnoses Diagnosis Left otitis media- Primary Unspecified otitis media Sinusitis Unspecified sinusitis (chronic) Yeast infection of the skin Candidiasis of skin and nails documented in this encounter Care Teams Bullet Casting Operator Relationship Specialty Start Date End Date None, Provider, PCP - General 06/03/18 08/24/19 documented as of this encounter
--- OUTSIDE RECORDS SUMMARY | 2024-09-10 03:48 | XMS_ITS | Encounter Summary ---
Author Organization [facility] Address [address] [place] [address]. [place] [address] Care Team Providers Care Cloth Shearer Name Role Phone None, Provider Primary Care Provider Alisson oliva Encounter Details Date Type Department Care Team (Latest Contact Info) Description 04/12/2021 Travel Social History Tobacco Use Types Packs/Day [...] or suspected to have Coronavirus / COVID-19? Yes 04/12/2021 6:27 PM CDT documented as of this encounter Plan of Treatment Not on file documented as of this encounter Visit Diagnoses Not on filedocumented in this encounter Care Teams Cloth Shearer Relationship Specialty Start Date End Date None, Provider, PCP - General 12/31/19 documented as of this encounter
--- OUTSIDE RECORDS SUMMARY | 2024-09-10 03:48 | XMS_ITS | Encounter Summary ---
Author Organization [facility] Address [address] [place] [address]. [place], [place] [id number] [place] [id number] Care Team Providers Care Woven Wood Shade Assembler Name Role Phone None, Provider MD Primary Care Provider Unavaila ble Reason for Referral * Imaging (Emergency) - Closed Specialty Diagnoses / Procedures Referred By Redd mobley Referred To Contact Procedures CT SINUS WO CON Josefina Hill PA-C [address] [place] [address] Phone: tel: fax: Referral ID Status Reason Start Date Expiration Date Visits Re quested Visits Authorized [id number] Closed 07/17/2018 08/16/2019 1 1 CIATE PROFESSOR OF ECONOMICS * Imaging (Emergency) - Closed Specialty Diagnoses / Procedures Referred By Redd mobley Referred To Contact Procedures CT HEAD WO CON Josefina Hill PA-C [address] [place] [address] Phone: tel: fax: Referral ID Status Reason Start Date Expiration Date Visits Re quested Visits Authorized [id number] Closed 07/17/2018 08/16/2019 1 1 CIATE PROFESSOR OF ECONOMICS Reason for Visit * Reason Comments Dizziness Headache Encounter Details Date Type Department Care Team (Latest Contact Info) Description 07/17/2018 6:08 PM ASSOCIATE PROFESSOR OF ECONOMICS - 07/17/2018 7:43 PM ASSOCIATE PROFESSOR OF ECONOMICS Hospital Encounter [facility] [address] Josefina Hill PA-C [address] [place] [address] Dizziness; Headache Discharge Disposition: Home or Self Care [...] Sign Reading Time Taken Comments Blood Pressure 149/93 07/17/2018 6:11 PM ASSOCIATE PROFESSOR OF ECONOMICS Pulse 71 07/17/2018 6:11 PM ASSOCIATE PROFESSOR OF ECONOMICS Temperature 36.2 ??C (97.2 ??F) 07/17/2018 6:11 PM CS T Respiratory Rate 16 07/17/2018 6:11 PM ASSOCIATE PROFESSOR OF ECONOMICS Oxygen Saturation 99% 07/17/2018 6:11 PM ASSOCIATE PROFESSOR OF ECONOMICS Inhaled Oxygen Concentration - - Weight 120.2 kg (265 lb) 07/17/2018 6:11 PM ASSOCIATE PROFESSOR OF ECONOMICS Height 188 cm (6' 2 ) 07/17/2018 6:11 PM ASSOCIATE PROFESSOR OF ECONOMICS Body Mass Index 34.02 07/17/2018 6:11 PM ASSOCIATE PROFESSOR OF ECONOMICS documented in this encounter Discharge Instructions * Attachments The following attachments cannot be sent through Care Everywhere. * CHRONIC SINUSITIS (CHINESE) documented in this encounter Medications at Time of Discharge albuterol sulfate HFA 108 (90 BASE) MCG/ACT inhaler Inhale 2 puffs into the lungs every 6 (six) hours as needed for Wheezing. 12/12/2018 alprazolam 2 MG tablet Take 2 mg by mouth 4 (four) times daily as needed. 11/30/2019 atenolol 100 MG tablet Take 100 mg by mouth daily. 12/12/2018 escitalopram 20 MG tablet Take 40 mg by mouth daily. 09/19/2018 fluticasone propionate 50 MCG/ACT nasal spray 1 spray by Nasal route daily. 12/12/2018 magnesium-aluminu m-simethicone (MAALOX REGULAR STRENGTH) 200-200-20 MG/5ML suspension Take 10 mLs by mouth 4 (four) times daily with meals and nightly for 10 days. 355 mL 07/17/2018 07/27/2018 meclizine 25 MG tablet Take 25 mg by mouth 3 (three) times daily as needed. 05/22/2024 methylPREDNISolon e, BIJU, 4 MG tablet 6 TABLETS ON DAY ONE, 5 TABLETS DAY TWO, 4 TABLETS DAY THREE, 3 TABLETS DAY FOUR, 2 TABLETS DAY FIVE, AND 1 TABLET DAY SIX 1 each 07/17/2018 09/19/2018 documented as of this encounter ED Notes * Josefina Hill PA-C - 07/17/2018 6:51 PM CST [facility]- [place], [place] HISTORICAL INFORMATION Primary Care Doctor: Provider Ayaka, Patient information was obtained primarily from the patient, nursing notes. History/Exam limitations: None Provider at Bedside Date/Time Event User Comments 07/17/181818 Provider at Bedside Assessing Patient JOSEFINA HILL CHIEF COMPLAINT Dizziness and Headache Chief Complaint Patient presents with ??? Dizziness ??? Headache HPI Carlos Mcgee is a 48-year-old male who presents to for evaluation of sinus pressure, headache and dizziness for the past 10days. Denies any focal weakness or paresthesia. He was seen and evaluated for chest pain one month ago and cleared by cardiology. He states a h/o severe generalized anxiety and follows with psychiatry. Takes xanax 2mg TID. He was feeling slightly dizzy today while working and came to for evaluation. He complains mostly of other providers having it out for him and getting fired from multiple other offices for a multitude of reasons. PAST MEDICAL HISTORY Past Medical History: Diagnosis Date ??? Anxiety ??? Benign carcinoid tumor of sigmoid colon ??? Depressed ??? Diabetes mellitus (HCC) type 2 ??? Hypertension SURGICAL HISTORY Past Surgical History: Procedure Laterality Date ??? CHOLECYSTECTOMY CURRENT MEDICATIONS No current facility-administered medications for this encounter. Current Outpatient Medications: ??? albuterol sulfate HFA 108 (90 BASE) MCG/ACT inhaler, Inhale 2 puffs into the lungs every 6 (six) hours as needed for Wheezing., Disp: , Rfl: ??? alprazolam 2 MG tablet, Take 2 mg by mouth 4 (four) times daily as needed. , Disp: , Rfl: ??? atenolol 100 MG tablet, Take 100 mg by mouth daily., Disp: , Rfl: ??? escitalopram 20 MG tablet, Take 40 mg by mouth daily. , Disp: , Rfl: ??? fluticasone propionate 50 MCG/ACT nasal spray, 1 spray by Nasal route daily., Disp: , Rfl: ??? knytfilsj-nlbwllyq-qjtglfczhti (MAALOX REGULAR STRENGTH) 200-200-20 MG/5ML suspension, Take 10 mLs by mouth 4 (four) times daily with meals and nightly for 10 days., Disp: 355 mL, Rfl: 0 ??? meclizine 25 MG tablet, Take 25 mg by mouth 3 (three) times daily as needed., Disp: , Rfl: ??? methylPREDNISolone, BIJU, 4 MG tablet, 6 TABLETS ON DAY ONE, 5 TABLETS DAY TWO, 4 TABLETS DAY THREE, 3 TABLETS DAY FOUR, 2 TABLETS DAY FIVE, AND 1 TABLET DAY SIX, Disp: 1 each, Rfl: 0 ALLERGIES Allergies Allergen Reactions ??? Pepcid [Famotidine] Shortness of Breath ??? Bactrim [Sulfamethoxazole-Trimethoprim] Hives ??? Contrast [Iodine] Hives ??? Keflex [Cephalexin] Hives ??? Levofloxacin Unknown ??? Lidocaine Angioedema ??? Oxycodone Hives ??? Zithromax [Azithromycin] Hives ??? Ketorolac Tromethamine GI Upset ??? Paxil [Paroxetine] Anxiety FAMILY HISTORY Family History Problem Relation Age of Onset ??? Cancer Mother ??? Stroke Father SOCIAL HISTORY Social History Socioeconomic History ??? Marital status: Spouse name: Not on file ??? Number of children: Not on file ??? Years of education: Not on file ??? Highest education level: Not on file Social Needs ??? Financial resource strain: Not on file ??? Food insecurity - worry: Not on file ??? Food insecurity - inability: Not on file ??? Transportation needs - medical: Not on file ??? Transportation needs - non-medical: Not on file Occupational History ??? Not on file Tobacco Use ??? Smoking status: Never Smoker ??? Smokeless tobacco: Never Used Substance and Sexual Activity ??? Alcohol use: No ??? Drug use: No ??? Sexual activity: Not on file Other Topics Concern ??? Not on file Social History Narrative ??? Not on file REVIEW OF SYSTEMS Constitutional: Denies fever, chills, weight loss or weakness. Skin: Denies rash. HEENT: Denies sore throat or ear pain. +sinus pressure Respiratory: Denies cough or shortness of breath. Cardiovascular: Denies chest pain, palpitations or swelling. GI: Denies abdominal pain, nausea, vomiting, or diarrhea. : Denies dysuria, urinary frequency. Musculoskeletal: Denies back pain. Neurologic: Admits to headache; denies focal weakness or sensory changes. See HPI for further details. All systems negative except as marked. Physical Exam VITAL SIGNS: Filed Vitals: 07/17/18 1811 BP: (!) 149/93 Pulse: 71 Resp: 16 Temp: 97.2 ??F (36.2 ??C) TempSrc: Oral SpO2: 99% Weight: 120.2 kg (265 lb) Height: 6' 2 (1.88 m) Constitutional: Well developed, No acute distress, Non-toxic appearance. Integument: Warm, Dry, No erythema, No rash. HEENT: Normocephalic, Atraumatic, Conjunctiva normal, Neck- Normal range of motion, Supple Back- No tenderness. Respiratory: Normal breath sounds, No respiratory distress. Cardiovascular: Normal heart rate, Normal rhythm GI: Bowel sounds normal, Soft, No tenderness Musculoskeletal: Good ROM, no deformities noted Neurologic: Alert & oriented x 3, No focal deficits noted. Psychiatric: Affect normal, Judgment normal, Mood normal. EKG (interpreted by ED provider) No results found for this visit on 07/17/18. LABORATORY Labs Reviewed - No data to display RADIOLOGY CT HEAD WO CON Final Result by User, [id number] (07/17 1927) EXAMINATION: CT of the head and sinuses CLINICAL HISTORY: Dizziness, lightheadedness and frontal headache. Recent cardiac catheterization. COMPARISON: 06/18/2018 TECHNIQUE: CT examination of the head without contrast was performed with axial images obtained. Multiplanar dedicated imaging of the sinuses was performed. A radiation dose lowering technique was used for this procedure, which may include, but is not limited to, dose reduction technique, automated exposure control, the use of iterative reconstruction, ALARA (As Low As Reasonably Achievable) techniques, and Image Gently techniques. FINDINGS: Brain: There is no evidence of acute intracranial hemorrhage, abnormal extra-axial collections, intracranial mass effect, or midline shift. The ventricles and extra-axial/subarachnoid spaces are unremarkable. The valdez-white matter differentiation is grossly preserved. There is no definite CT evidence to suggest acute territorial infarction. Please note that CT has limited sensitivity for acute ischemia. The calvarium is unremarkable. Orbits are unremarkable. Sinuses: There is an oval 3 cm mucous retention cyst or polyp in the right maxillary sinus. Tiny additional mucus retention cysts in the both maxillary sinuses. No significant mucosal thickening in the sinuses. No sinus air-fluid level. Specifically, the frontal sinuses are clear. Mastoid air cells and middle ear cavities are clear. IMPRESSION: 1. No acute intracranial abnormalities. 2. Stable mucous retention cyst or polyp in the right maxillary sinus. 3. No evidence of acute sinusitis. Interpreted By: Hardik Man MD, 07/17/2018 7:[address] SINUS WO CON Final Result by User, [id number] (07/17 1927) EXAMINATION: CT of the head and sinuses CLINICAL HISTORY: Dizziness, lightheadedness and frontal headache. Recent cardiac catheterization. COMPARISON: 06/18/2018 TECHNIQUE: CT examination of the head without contrast was performed with axial images obtained. Multiplanar dedicated imaging of the sinuses was performed. A radiation dose lowering technique was used for this procedure, which may include, but is not limited to, dose reduction technique, automated exposure control, the use of iterative reconstruction, ALARA (As Low As Reasonably Achievable) techniques, and Image Gently techniques. FINDINGS: Brain: There is no evidence of acute intracranial hemorrhage, abnormal extra-axial collections, intracranial mass effect, or midline shift. The ventricles and extra-axial/subarachnoid spaces are unremarkable. The valdez-white matter differentiation is grossly preserved. There is no definite CT evidence to suggest acute territorial infarction. Please note that CT has limited sensitivity for acute ischemia. The calvarium is unremarkable. Orbits are unremarkable. Sinuses: There is an oval 3 cm mucous retention cyst or polyp in the right maxillary sinus. Tiny additional mucus retention cysts in the both maxillary sinuses. No significant mucosal thickening in the sinuses. No sinus air-fluid level. Specifically, the frontal sinuses are clear. Mastoid air cells and middle ear cavities are clear. IMPRESSION: 1. No acute intracranial abnormalities. 2. Stable mucous retention cyst or polyp in the right maxillary sinus. 3. No evidence of acute sinusitis. Interpreted By: Hardik Man MD, 07/17/2018 7:18 PM PROCEDURES Procedures MDM Exam grossly unremarkable. Pt in no distress and non-toxic appearing. He continues to elaborate on non-specific issues with each return evaluation to his room. He goes on with descriptions of why he was denies repeat visits with his PCP and museum archivist as well as other providers. He states he was seen recently but is unable to follow up with PCP because he was fired from their practice. I offered an alternative follow up planning as well as counseling services. I gave him a contact for counselors. I have discussed today's findings with the [...] and has verbalized understanding of these instructions. Impression ED Course SNOMED CT(R) 1. Sinusitis chronic, frontal CHRONIC FRONTAL SINUSITIS Disposition: Discharge OMI GASTON PA-C 07/23/18 1303 Cosigned by Jesus Negrete MD at 07/23/2018 7:38 PM ASSOCIATE PROFESSOR OF ECONOMICS CIATE PROFESSOR OF ECONOMICS CIATE PROFESSOR OF ECONOMICS * Venus Crump RN - 07/17/2018 6:08 PM CST AMB TO [facility], C/O LIGHT HEADEDNESS AND RUSSO, STARTED DAY AFTER CARDIAC CATH. CALLED SEXUAL ASSAULT COUNSELLOR WHO SAID HEART WAS FINE AND SYMPTOMS WERE NOT RELATED. PAIN IS CONSTANT, TAKING TYLENOL. PPS 01/20 MECLIZINENOT HELPING. FEELS LOPSIDED CIATE PROFESSOR OF ECONOMICS documented in this encounter Plan of Treatment Not on file documented as of this encounter Procedures Procedure Name Priority Date/Time Associated Diagnosis Comments CT SINUS WO CON STAT 07/17/2018 7:04 PM ASSOCIATE PROFESSOR OF ECONOMICS CT HEAD WO CON STAT 07/17/2018 7:04 PM ASSOCIATE PROFESSOR OF ECONOMICS documented in this encounter Results * CT SINUS WO CON (07/17/2018 7:04 PM ASSOCIATE PROFESSOR OF ECONOMICS) Anatomical Region Laterality Modality Facial Computed Tomogra phy 07/17/2018 7:18 PM ASSOCIATE PROFESSOR OF ECONOMICS Narrative 07/17/2018 7:27 PM ASSOCIATE PROFESSOR OF ECONOMICS EXAMINATION: CT of the head and sinuses CLINICAL HISTORY: Dizziness, lightheadedness and frontal headache. ??Recent cardiac catheterization. COMPARISON: 06/18/2018 TECHNIQUE: CT examination of the head without contrast ??was performed with axial images obtained. ??Multiplanar dedicated imaging of the sinuses was performed. ??A radiation dose lowering technique was used for this procedure, which may include, but is not limited to, dose reduction technique, automated exposure control, the use of iterative reconstruction, ALARA (As Low As Reasonably Achievable) techniques, and Image Gently techniques. FINDINGS: Brain: There is no evidence of acute intracranial hemorrhage, abnormal extra- axial collections, intracranial mass effect, or midline shift. The ventricles and extra-axial/subarachnoid spaces are unremarkable. The valdez-white matter differentiation is grossly preserved. There is no definite CT evidence to suggest acute territorial infarction. ??Please note that CT has limited sensitivity for acute ischemia. ??The calvarium is unremarkable. ??Orbits are unremarkable. Sinuses: There is an oval 3 cm mucous retention cyst or polyp in the right maxillary sinus. ??Tiny additional mucus retention cysts in the both maxillary sinuses. ??No significant mucosal thickening in the sinuses. ??No sinus air-fluid level. ??Specifically, the frontal sinuses are clear. ??Mastoid air cells and middle ear cavities are clear. ?? IMPRESSION: 1. ??No acute intracranial abnormalities. 2. ??Stable mucous retention cyst or polyp in the right maxillary sinus. 3. ??No evidence of acute sinusitis. Interpreted By: Hardik Man MD, 07/17/2018 7:18 PM Procedure Note Hardik Man MD - 07/17/2018 EXAMINATION: CT of the head and sinuses CLINICAL HISTORY: Dizziness, lightheadedness and frontal headache. Recentcardiac catheterization. COMPARISON: 06/18/2018 TECHNIQUE: CT examination of the head without contrast was performed withaxial images obtained. Multiplanar dedicated imaging of the sinuses wasperformed. A radiation dose lowering technique was used for thisprocedure, which may include, but is not limited to, dose reductiontechnique, automated exposure control, the use of iterativereconstruction, ALARA (As Low As Reasonably Achievable) techniques, andImage Gently techniques. FINDINGS: Brain: There is no evidence of acute intracranial hemorrhage, abnormalextra- axial collections, intracranial mass effect, or midline shift. Theventricles and extra-axial/subarachnoid spaces are unremarkable. Thegray-white matter differentiation is grossly preserved. There is nodefinite CT evidence to suggest acute territorial infarction. Please notethat CT has limited sensitivity for acute ischemia. The calvarium isunremarkable. Orbits are unremarkable. Sinuses: There is an oval 3 cm mucous retention cyst or polyp in the rightmaxillary sinus. Tiny additional mucus retention cysts in the bothmaxillary sinuses. No significant mucosal thickening in the sinuses. Nosinus air-fluid level. Specifically, the frontal sinuses are clear.Mastoid air cells and middle ear cavities are clear. IMPRESSION: 1. No acute intracranial abnormalities. 2. Stable mucous retention cyst or polyp in the right maxillary sinus. 3. No evidence of acute sinusitis. Interpreted By: Hardik Man MD, 07/17/2018 7:18 PM Josefina Hill PA-C CT Final Result * CT HEAD WO CON (07/17/2018 7:04 PM ASSOCIATE PROFESSOR OF ECONOMICS) Anatomical Region Laterality Modality Head Computed Tomogra phy 07/17/2018 7:18 PM ASSOCIATE PROFESSOR OF ECONOMICS Narrative 07/17/2018 7:27 PM ASSOCIATE PROFESSOR OF ECONOMICS EXAMINATION: CT of the head and sinuses CLINICAL HISTORY: Dizziness, lightheadedness and frontal headache. ??Recent cardiac catheterization. COMPARISON: 06/18/2018 TECHNIQUE: CT examination of the head without contrast ??was performed with axial images obtained. ??Multiplanar dedicated imaging of the sinuses was performed. ??A radiation dose lowering technique was used for this procedure, which may include, but is not limited to, dose reduction technique, automated exposure control, the use of iterative reconstruction, ALARA (As Low As Reasonably Achievable) techniques, and Image Gently techniques. FINDINGS: Brain: There is no evidence of acute intracranial hemorrhage, abnormal extra- axial collections, intracranial mass effect, or midline shift. The ventricles and extra-axial/subarachnoid spaces are unremarkable. The valdez-white matter differentiation is grossly preserved. There is no definite CT evidence to suggest acute territorial infarction. ??Please note that CT has limited sensitivity for acute ischemia. ??The calvarium is unremarkable. ??Orbits are unremarkable. Sinuses: There is an oval 3 cm mucous retention cyst or polyp in the right maxillary sinus. ??Tiny additional mucus retention cysts in the both maxillary sinuses. ??No significant mucosal thickening in the sinuses. ??No sinus air-fluid level. ??Specifically, the frontal sinuses are clear. ??Mastoid air cells and middle ear cavities are clear. ?? IMPRESSION: 1. ??No acute intracranial abnormalities. 2. ??Stable mucous retention cyst or polyp in the right maxillary sinus. 3. ??No evidence of acute sinusitis. Interpreted By: Hardik Man MD, 07/17/2018 7:18 PM Procedure Note Hardik Man MD - 07/17/2018 EXAMINATION: CT of the head and sinuses CLINICAL HISTORY: Dizziness, lightheadedness and frontal headache. Recentcardiac catheterization. COMPARISON: 06/18/2018 TECHNIQUE: CT examination of the head without contrast was performed withaxial images obtained. Multiplanar dedicated imaging of the sinuses wasperformed. A radiation dose lowering technique was used for thisprocedure, which may include, but is not limited to, dose reductiontechnique, automated exposure control, the use of iterativereconstruction, ALARA (As Low As Reasonably Achievable) techniques, andImage Gently techniques. FINDINGS: Brain: There is no evidence of acute intracranial hemorrhage, abnormalextra- axial collections, intracranial mass effect, or midline shift. Theventricles and extra-axial/subarachnoid spaces are unremarkable. Thegray-white matter differentiation is grossly preserved. There is nodefinite CT evidence to suggest acute territorial infarction. Please notethat CT has limited sensitivity for acute ischemia. The calvarium isunremarkable. Orbits are unremarkable. Sinuses: There is an oval 3 cm mucous retention cyst or polyp in the rightmaxillary sinus. Tiny additional mucus retention cysts in the bothmaxillary sinuses. No significant mucosal thickening in the sinuses. Nosinus air-fluid level. Specifically, the frontal sinuses are clear.Mastoid air cells and middle ear cavities are clear. IMPRESSION: 1. No acute intracranial abnormalities. 2. Stable mucous retention cyst or polyp in the right maxillary sinus. 3. No evidence of acute sinusitis. Interpreted By: Hardik Man MD, 07/17/2018 7:18 PM Josefina Hill PA-C CT Final Result documented in this encounter Visit Diagnoses Diagnosis Sinusitis chronic, frontal- Primary Chronic frontal sinusitis documented in this encounter Care Teams Woven Wood Shade Assembler Relationship Specialty Start Date End Date None, ProviderMD PCP - General 06/03/18 08/24/19 documented as of this encounter
--- OUTSIDE RECORDS SUMMARY | 2024-09-10 03:48 | XMS_ITS | Encounter Summary ---
Author Organization [facility] Address [address] [place] [address]. [place], [place] [address] [place] [address] Care Team Providers Care Enterprise Systems Architect Name Role Phone Radha Palafox COUNTY AGENT Primary Care Provider [phone] Reason for Visit * Reason Comments Rash URI Encounter Details Date Type Department Care Team (Late st Contact Info) Description 08/25/2019 3:27 PM CLOTH BOLT BANDER - 08/25/2019 4:40 PM [facility] Hospital Encounter [place] [id number] [place] [address] Zenaida Olvera NP [address] [address] Rash; URI Discharge Disposition: Home or Self Care [...] Sign Reading Time Taken Comments Blood Pressure 157/92 08/25/2019 3:34 PM [facility] Pulse 78 08/25/2019 3:34 PM [facility] Temperature 36.3 ??C (97.3 ??F) 08/25/2019 3:34 PM CS T Respiratory Rate 20 08/25/2019 3:34 PM [facility]ANDER Oxygen Saturation 96% 08/25/2019 3:43 PM CL[facility]AND[facility] Inhaled Oxygen Concentration - - Weight 130.2 kg (287 lb) 08/25/2019 3:34 PM CL[facility] Height 185.4 cm (6' 1 ) 08/25/2019 3:34 PM CL[facility]AND[facility] Body Mass Index 37.87 08/25/2019 3:34 PM CL[facility]OLT BANDER documented in this encounter Discharge Instructions * Discharge Instructions* JANE Waller - 08/25/2019 4:34 PM CL[facility]AND[facility] Wash wound with soap and water daily. Apply thin layer antibiotic ointment daily. Seek attention if you develop any sign of infection Continue neti pot 3-4 times per day for sinus congestion Continue benadryl for allergies Gargle with warm water and 1/4 teaspoons salt every hour as needed for sore throat. Replace your toothbrush in 48 hours. Drink plenty of fluids especially water, soups, broth, tea and avoid citrus beverages and coffee and carbonated beverages while you have a sore throat. Do suck on hard candies and cough drops especially Sucrets throat lozenges or Chloraseptic throat spray for pain. These products are available over the counter without a prescription. H BOLT BANDER H BOLT BANDER * Attachments The following attachments cannot be sent through Care Everywhere. * Seasonal Allergies Discharge Instructions (Stateless) * Adenovirus Infections (Stateless) documented in this encounter Medications at Time [...] 12/12/2018 12/12/2019 alprazolam 2 MG tablet Take 2 mg by mouth 4 (four) times daily as needed. 11/30/2019 amoxicillin 875 MG tablet Take 875 mg by mouth 2 (two) times daily. 0 06/19/2019 04/12/2021 atenolol 100 MG tablet Take 1 tablet (100 mg total) by mouth daily. 30 tablet 12/12/2018 01/05/2020 fluticasone propionate (FLONASE) 50 MCG/ACT nasal spray 2 sprays by Nasal route daily. 16 g 12/12/2018 11/30/2019 meclizine 25 MG tablet Take 25 mg by mouth 3 (three) times daily as needed. 05/22/2024 olopatadine 0.1 % ophthalmic solution Place 1 drop into both eyes 2 (two) times daily. 5 mL 08/25/2019 05/22/2024 omeprazole 40 MG capsule Take 1 capsule (40 mg total) by mouth daily. 05/22/2024 documented as of this encounter ED Notes * JANE Waller - 08/25/2019 4:09 PM CST Emergency Department Note Chief Complaint Chief Complaint Patient presents with ??? Rash ??? URI History of Present Illness c/o runny nose and sinus congestion for 2 weeks, using flonase and neti pot but claims that his doctor told him to stop using the neti pot, not sure why. C/o sore throat for 10 days and pain in left ear. Taking benadryl without little relief but cannot take other antihistamines, 'causes stomach upset.' Usually takes zanador for allergies for eyes but not working at the present time. Concerned that his BS went from 320s to the 80s In under 2 hours 'the other day' but not taking metformin or glipermide and wants insulin but his insurance won't 'cover it yet. ', recalls that AIC is7.5%.. Did not make a plan with his PCP this past month when he was in the office. Both meds were changed according to the PDMP Link. Has a rash on the right side of his chest that started when he fell asleep on a heating bad that occurred about 4 hours ago, fell asleep on the pad for less than 20 minutes. Medical History ALLERGIES: Allergies Allergen Reactions ??? [...] mouth daily. 12/12/18 Yes Charly Durant PA-C diphenhydrAMINE 25 MG capsule Take 25 mg by mouth every 6 (six) hours as needed for Itching. Yes Doc Abstract fluticasone propionate (FLONASE) 50 MCG/ACT nasal spray 2 sprays by Nasal route daily. 12/12/18 12/12/19 Yes Charly Durant PA-C meclizine 25 MG tablet Take 25 mg by mouth 3 (three) times daily as needed. Yes Doc Abstract olopatadine 0.1 % ophthalmic solution Place 1 drop into both eyes 2 (two) times daily. 08/25/19 YesJANE Waller omeprazole 40 MG capsule Take 40 mg by mouth daily. Yes Doc Abstract simethicone (GAS-X) 80 MG chewable tablet Chew 80 mg by mouth every 6 (six) hours as needed for Flatulence. Yes Doc Abstract amoxicillin 875 MG tablet Take 875 mg by mouth 2 (two) times daily. 06/19/19 Doc Abstract PAST MEDICAL HISTORY: Past Medical [...] Systems Review of Systems Constitutional: Negative for chills and fever. HENT: Positive for congestion, sinus pressure and sore throat. Eyes: Positive for discharge. Respiratory: Positive for cough. Negative for shortness of breath. Cardiovascular: Negative for chest pain. Gastrointestinal: Negative for abdominal pain, constipation, diarrhea and nausea. Genitourinary: Negative for difficulty urinating. Skin: Positive for rash. Neurological: Negative for light-headedness and headaches. Psychiatric/Behavioral: Negative for decreased concentration. Physical Exam Filed Vitals: 08/25/19 1534 08/25/19 1543 BP: (!) 157/92 Pulse: 78 Resp: 20 Temp: 97.3 ??F (36.3 ??C) TempSrc: Temporal SpO2: 96% 96% Weight: 130.2 kg (287 lb) Height: 6' 1 (1.854 m) Physical Exam Constitutional: He is oriented to person, place, and time. He appears well- developed and well-nourished. No distress. HENT: Head: Normocephalic. Right Ear: External ear normal. Left Ear: External ear normal. Nose: Nose normal. Mouth/Throat: Oropharynx is clear and moist. No oropharyngeal exudate. Eyes: Conjunctivae are normal. Pupils are equal, round, and reactive to light. Bilateral clear tearing Neck: Neck supple. Cardiovascular: Normal rate, regular rhythm, normal heart sounds and intact distal pulses. No murmur heard. Pulmonary/Chest: Effort normal and breath sounds normal. Abdominal: Soft. Bowel sounds are normal. There is no tenderness. Musculoskeletal: He exhibits no edema or tenderness. Neurological: He is alert and oriented to person, place, and time. Skin: Skin is warm and dry. Rash noted. No pallor. Pattern of heating pad on right chest, blanches. No wounds noted. 15cm square area. Psychiatric: Frequent change in topics, persists in blaming his prior doctors for problems or their failure to properly manage an issue. Nursing note and vitals reviewed. Diagnostic Studies / Procedures ELECTROCARDIOGRAMS: No results found for this visit on 08/25/19. LABORATORY STUDIES: Results for orders placed or performed during the hospital encounter of 08/25/19 POCT glucose Result Value Ref Range WHOLE BLOOD GLUCOSE 231 (A) 70 - 100 mg/dL POCT glucose Result Value Ref Range GLUCOSE POC 231 (H) 70 - 99 mg/dL RAPID STREP A Result Value Ref Range Specimen Type THROAT RAPID STREP TEST NEGATIVE NEGATIVE IMAGING STUDIES No orders to display ED Course / Medical Decision Making ED Course as of Aug 25 1725WedAug 25, 2019 1619 GLUCOSE: (!) 231 [LM] 1625 RAPID STREP TEST: NEGATIVE [LM] 1723 Requested change in eye drop, did do so, though insurance will likely not cover. He wants steroids, advised against that due to his concern for blood sugar problems. Advised he follow up with his doctor and to start on meds for diabetes , also to follow diet for diabetes control, clarified different between uncontrolled diabetes and brittle diabetes and recommended he check sugars for reviewwith his doctor. [LM] ED Course User Index [LM] JANE Waller Medications - No data to display Clinical Impression Seasonal allergic rhinitis, unspecified trigger (Primary) Allergic conjunctivitis of both eyes Pharyngitis, unspecified etiology Discharge Medication List as of 08/25/2019 4:34 PM START taking these medications Details olopatadine 0.1 % ophthalmic solution Place 1 drop into both eyes 2 (two) times daily., Starting Wed08/25/2019, Eprescribe Class: Eprescribe Pharmacy: [facility]/pharmacy #[id number] - [place], [place] - [address] AT [facility] (Ph #: [phone]) Medications - No data to display Discharge Medication List as of 08/25/2019 4:34 PM START taking these medications Details olopatadine 0.1 % ophthalmic solution Place 1 drop into both eyes 2 (two) times daily., Starting Wed08/25/2019, Eprescribe Class: Eprescribe Pharmacy: [facility]/pharmacy #[id number] - [place], [place] - [address] [facility] (Ph #: [phone]) Disposition: Discharge Follow-Up: Radha Palafox, COUNTY AGENT [address] [address] Schedule an appointment as soon as possible for a visit JANE WALLER 08/25/2019 JANE Waller 08/25/19 5535 Cosigned by Dave Ramsey MD at 08/25/2019 7:05 PM CLOTH BOLT BANDER H BOLT BANDER H BOLT BANDER * Kandi Soto RN - 08/25/2019 3:29 PM CST HERE WITH C/O'S REDDENED AREA TO RIGHT RIB AREA AFTER APPLYING HEATING PAD TO AREA. S/S STARTED TODAY WAS TOLD TO GO TO BY PMD HERE URI S/S - NONPRODUCTIVE COUGH, RUNNY NOSE, FEVERS, SORE THROAT, POST NASAL DRIP, FATIGUE S/S STARTED 2 WKS AGO AND WORSENED ON Wednesday. TRIED TYLENOL/IBUPROFEN, FLONASE H BOLT BANDER H BOLT BANDER documented in this encounter Plan of Treatment Not on file documented as of this encounter Procedures Procedure Name Priority Date/Time Associated Diagnosis Comments STREP A, DNA STAT 08/25/2019 4:02 PM [facility] RAPID STREP A STAT 08/25/2019 4:02 PM [facility]ER POCT GLUCOSE - WEIR DOCKED DEVICE STAT 08/25/2019 3:51 PM CL[facility]ER POCT GLUCOSE - WEIR DOCKED DEVICE Routine 08/25/2019 3:50 PM CL[facility]ER documented in this encounter Results * STREP A, DNA (08/25/2019 4:02 PM CLOTH [facility] BANDER) STREP A MOLECULAR NEGATIVE NEGATIVE 019 2:07 AM [facility] Comment:SPECIMEN NEGATIVE FO R GROUP A STREPTOCOCCUS BY DNA AMPLIFICATION 08/25/2019 4:02 PM CL[facility] Zenaida Olvera NP MICROBIOLOGY - GENERAL ORDERA BLES Final Result Performing Organization Address [facility] Co de Phone Number [facility] [address] [place] [address], [place] [phone] * RAPID STREP A (08/25/2019 4:02 PM CLOTH BOLT BANDER) SPECIMEN TYPE THROAT 08/25/2019 4:03 PM [facility]ER [facility] RAPID STREP TEST NEGATIVE NEGATIVE 08/25/2019 4:22 PM [facility]ER [facility] STRUCTURE OF ANTERIOR PORTION OF NECK / Unknown 08/25/2019 4:02 PM [facility]ER Zenaida Olvera NP MICROBIOLOGY - GENERAL ORDERA BLES Final Result Performing Organization Address [facility] Co de Phone Number [facility] [address] [place] [address], [place] * (ABNORMAL) POCT glucose (08/25/2019 3:51 PM CLOTH BOLT BANDER) GLUCOSE WHOLE BLOOD 231(A) 70 - 100 mg/dL [facility] Zenaida Olvera NP POCT ORDERABLES - DEVICE Laura l Result Performing Organization Address City/[facility]/ZIP Co de Phone Number [facility] [address] [place] [address], [place] [phone] * (ABNORMAL) POCT glucose (08/25/2019 3:50 PM CLOTH BOLT BANDER) GLUCOSE POC 231(H) 70 - 99 mg/dL 08/25/2019 3:59 PM [facility] ORDERS INTERFACE 08/25/2019 3:50 PM CL[facility]T BANDER us Zenaida Olvera NP POCT ORDERABLES - DEVICE Laura la Result [facility] ORDERS INTERFACE US documented in this encounter Visit Diagnoses Diagnosis Seasonal allergic rhinitis, unspecified trigger- Primary Allergic conjunctivitis of both eyes Other chronic allergic conjunctivitis Pharyngitis, unspecified etiology documented in this encounter Care Teams Enterprise Systems Architect Relationship Specialty Start Date End Date Radha Palafox NP PCP - General NURSE PRACTITIONER 08/25/19 12/30/19 documented as of this encounter
--- OUTSIDE RECORDS SUMMARY | 2024-09-10 03:48 | XMS_ITS | Encounter Summary ---
Author Organization [facility] Address [address] [place] [address]. [place], [place] [id number] [place] [id number] Care Team Providers Care Logging Supervisor Name Role Phone Radha Palafox NP Primary Care Provider [phone] Reason for Visit * Reason Comments Med Refills Encounter Details Date Type Department Care Team (Latest Contact Info) Description 11/30/2019 6:39 PM CDT - 11/30/2019 7:10 PM CDT Hospital Encounter [facility] [address] [place] [address] Chyna Jacques, RAINA [address] [place] [address] Med Refills Discharge Disposition: Home or Self [...] Sign Reading Time Taken Comments Blood Pressure 152/106 11/30/2019 6:44 PM CDT Pulse 67 11/30/2019 6:44 PM CDT Temperature 36.3 ??C (97.3 ??F) 11/30/2019 6:44 PM CD T Respiratory Rate 20 11/30/2019 6:44 PM CDT Oxygen Saturation 99% 11/30/2019 6:44 PM CDT Inhaled Oxygen Concentration - - Weight 130.2 kg (287 lb) 11/30/2019 6:44 PM CDT Height 185.4 cm (6' 1 ) 11/30/2019 6:44 PM CDT Body Mass Index 37.87 11/30/2019 6:44 PM CDT documented in this encounter Discharge Instructions * Discharge Instructions* RAINA López - 11/30/2019 7:05 PM CDT Make sure you schedule an appointment with your primary care provider for your high blood pressure. Keep appointment with your new psychiatrist. Use your inhaler when you are feeling short of breath. * Attachments The following attachments cannot be sent through Care Everywhere. * Anxiety Discharge Instructions, Adult (Chinese) documented in this encounter Medications at Time [...] as of this encounter ED Notes * Chyna JacquesRAINA - 11/30/2019 7:06 PM CDT Chief Complaint Chief Complaint Patient presents with ??? Med Refills History of Present Illness 49-year-old male into the clinic for medication renewal. Patient's has a history of severe anxiety.Was followed by psychiatrist in the [place] area. He had a falling out with the psychiatrist and has an appointment scheduled on 11 December with a new psychiatrist. He spoke to his primary care provider and they would not refill his medication. He went to [facility] and had a provider give him a 1week prescription. And he is coming here asking for a renewal just to get him to his appointment. Patient also had questions regarding the Covid 19 virus. He is concerned about it because he has diabetes and asthma. He has been feeling a little short of breath and a little bit of a cough. At [facility] last week he got a nebulizer treatment and felt much better. He admits to not taking his inhaler recently. He denies any fevers currently. Nor has he had any fevers of recent. Also discussed his elevated blood pressure. Patient was aware of its been elevated. He once again stated he had appointment with his primary care provider but then it got canceled. Medical History ALLERGIES: Allergies Allergen Reactions ??? [...] Start Date End Date Taking? Authorizing Provider alprazolam 2 MG tablet Take 1 tablet (2 mg total) by mouth 3 (three) times daily as needed. 11/30/19Yes Chyna Hong RAINA Jacques albuterol sulfate HFA 108 (90 Base) MCG/ACT inhaler Inhale 2 puffs into the lungs every 4 (four) hours as needed for Wheezing. 12/12/18 12/12/19 Charly Durant PA-C amoxicillin 875 MG tablet Take 875 mg [...] Negative for chills, diaphoresis and fever. HENT: Negative. Eyes: Negative. Respiratory: Positive for cough, shortness of breath and wheezing. Cardiovascular: Negative. Gastrointestinal: Negative. Endocrine: Negative. Musculoskeletal: Negative. Skin: Negative. Allergic/Immunologic: Negative. Neurological: Positive for light-headedness (At times). Negative for seizures, syncope, speech difficulty, weakness and headaches. Psychiatric/Behavioral: Positive for decreased concentration and sleep disturbance. Negative for agitation, behavioral problems, confusion, hallucinations and self-injury. The patient is nervous/anxious. Physical Exam Filed Vitals: 11/30/19 1844 BP: (!) 152/106 Pulse: 67 Resp: 20 Temp: 97.3 ??F (36.3 ??C) TempSrc: Temporal SpO2: 99% Weight: 130.2 kg (287 lb) Height: 6' 1 (1.854 m) Physical Exam Constitutional: He appears well-developed and well-nourished. HENT: Head: Normocephalic. Eyes: Conjunctivae are normal. Cardiovascular: Normal rate and regular rhythm. Pulmonary/Chest: Effort normal and breath sounds normal. No stridor. No respiratory distress. He has no wheezes. He has no rales. Musculoskeletal: Normal range of motion. Skin: Skin is warm and dry. Psychiatric: He has a normal mood and affect. Nursing note reviewed. Diagnostic Studies / Procedures ELECTROCARDIOGRAMS: No results found for this visit on 11/30/19. LABORATORY STUDIES: No results found for this visit on 11/30/19. IMAGING STUDIES No orders to display ED Course / Medical Decision Making MDM Number of Diagnoses or Management Options Anxiety: minor Diagnosis management comments: Patient presented with med refill. Patient went and discussed multiple concerns that were not related to his medication refill and were not medically related. Was having some legal issues and wanted to talk about that. Wanted to talk about problems with accessing healthcare. Advised patient that I would give him a short course of the medication he requested but He needed to keep his appointment with the specialist Reviewed plan of care with patient to include diagnoses, Test results, medication and plan of care.Pt verbalized understanding. All questions answered. Risk of Complications, Morbidity, and/or Mortality Presenting problems: minimal Diagnostic procedures: minimal Management options: low Patient Progress Patient progress: stable ED Course as of Nov 29 1913 Radha Nov 30, 2019 1901 Pt is aware of his BP being elevated recently. Advised to schedule appt with primary care provider. BP(!): 152/106 [MB] ED Course User Index [MB] RAINA López Clinical Impression Anxiety (Primary) Disposition: Discharge RAINA López 11/30/191913 Cosigned by Dave Ramsey MD at 11/30/2019 7:39 PM CDT * Venus Crump RN - 11/30/2019 6:57 PM CDT Amb to UC, requests refills of multiple medications. Pt had called this am inquiring about refills. documented in this encounter Plan of Treatment Not on file documented as of this encounter Visit Diagnoses Diagnosis Anxiety- Primary Anxiety state, unspecified documented in this encounter Care Teams Logging Supervisor Relationship Specialty Start Date End Date Radha Palafox NP PCP - General NURSE PRACTITIONER 08/25/19 12/30/19 documented as of this encounter
--- OUTSIDE RECORDS SUMMARY | 2024-09-10 03:48 | XMS_ITS | Encounter Summary ---
Author Organization [facility] [place] Address [address] [place] [address]. [place], [place] [address] [place] [id number] Care Team Providers Care Building Maintenance Custodian Name Role Phone None, Provider MD Primary Care Provider Unavaila ble Reason for Visit * Reason Comments Rib Pain Encounter Details Date Type Department Care Team (Latest Contact Info) Description 04/12/2021 6:44 PM CDT - 04/12/2021 8:33 PM CDT Hospital En[facility] [id number] [place] [address] Luna Osorio, [address] [id number] Rib Pain Discharge Disposition: Home or Self Care (Routine [...] Sign Reading Time Taken Comments Blood Pressure 158/98 04/12/2021 6:56 PM CDT Pulse 60 04/12/2021 6:56 PM CDT Temperature 36.3 ??C (97.3 ??F) 04/12/2021 6:56 PM CD T Respiratory Rate 18 04/12/2021 6:56 PM CDT Oxygen Saturation 100% 04/12/2021 6:56 PM CDT Inhaled Oxygen Concentration - - Weight - - Height - - Body Mass Index - - documented in this encounter Discharge Instructions * Discharge Instructions* RAINA Harley - 04/12/2021 8:34 PM CDT I would recommend that you follow-up with a primary care provider for possible physical therapy forlong haulers Covid symptoms. You may take the Flexeril for the muscle aches and pain, alternate Tylenol or ibuprofen or use BenGay over your ribs as we discussed. Thank you for giving us the opportunity to care for you today. If at any point you are becoming more ill, please call your doctor, or go to the ER. You are [...] get from us. Your feedback is anonymous and helps us improve the patient experience for you and others in the community we serve. - RAINA Pedro- - Emergency Medicine Provider * Attachments The following attachments cannot be sent through Care Everywhere. * Coronavirus Disease 2019 (COVID-19) Overview (Tunisian) documented in this encounter Medications at Time [...] daily as needed. 4 Neomycin-Bacitra chalino Zn-Polymyx [id number] Ointment Apply 1 Application to eye 3 (three) times daily. 3 g 12/21/2020 4 olopatadine 0.1 % ophthalmic solution Place 1 drop into both eyes 2 (two) times daily. 5 mL 08/25/2019 4 omeprazole 40 MG capsule Take 1 capsule (40 mg total) by mouth daily. 4 documented as of this encounter ED Notes * Luna Osorio, RAINA - 04/12/2021 8:24 PM CDT Chief Complaint Chief Complaint Patient presents with ??? Rib Pain History of Present Illness 51-year-old male presents for evaluation of persistent headache, fatigue, rib pain, tremors. He tested positive for Covid on 01 April and states he has had conflicting information from the health department about when he should get his Covid vaccine and when he should end his quarantine. He expresses great displeasure with his PCP and ENT who would not see him for his symptoms, he states he fired them both He notes he has been staying in a hotel as his does not want him to come back, she is concerned he is still contagious due to his symptoms. He states he got some relief yesterday when taking Flexeril, but only has 2 pills left. Medical History ALLERGIES: Allergies Allergen Reactions ??? [...] Start Date End Date Taking? Authorizing Provider benzonatate (TESSALON PERLES) 100 MG capsule Take 2 capsules (200 mg total) by mouth 3 (three) times daily as needed. 04/12/21 04/19/21 Yes RAINA Harley cyclobenzaprine 10 MG tablet Take 1 tablet (10 mg total) by mouth 3 (three) times daily as needed. Do not take if driving 04/12/21 04/22/21 Yes RAINA Harley fluticasone propionate 50 MCG/ACT nasal spray 2 sprays by Nasal route daily. 12/09/20 Yes Doc Abstract ALPRAZolam 2 MG tablet Take 1 tablet [...] daily as needed. Doc Abstract Neomycin-Bacitracin Zn-Polymyx [id number] Ointment Apply 1 Application to eye 3 [...] Systems Constitutional: Positive for fatigue. Negative for chills and fever. HENT: Positive for sinus pressure and sinus pain. Negative for congestion and sore throat. Eyes: Negative for pain and redness. Respiratory: Negative for cough, chest tightness, shortness of breath and wheezing. Rib pain Cardiovascular: Negative for chest pain. Gastrointestinal: Negative for abdominal pain, constipation, diarrhea, nausea and vomiting. Musculoskeletal: Negative for arthralgias and joint swelling. Skin: Negative for rash and wound. Neurological: Positive for tremors and headaches. Psychiatric/Behavioral: Negative for agitation. The patient is not nervous/anxious. Physical Exam Filed Vitals: 04/12/21 1856 BP: (!) 158/98 Pulse: 60 Resp: 18 Temp: 97.3 ??F (36.3 ??C) TempSrc: Temporal SpO2: 100% Physical Exam Vitals and nursing note reviewed. Constitutional: Appearance: He is well-developed. HENT: Head: Normocephalic. Eyes: Pupils: Pupils are equal, round, and reactive to light. Cardiovascular: Rate and Rhythm: Normal rate and regular rhythm. Pulses: Normal pulses. Heart sounds: No murmur. Pulmonary: Effort: Pulmonary effort is normal. Breath sounds: Normal breath sounds. No wheezing or rhonchi. Musculoskeletal: General: Normal range of motion. Right lower leg: No edema. Left lower leg: No edema. Skin: General: Skin is warm and dry. Neurological: Mental Status: He is alert and oriented to person, place, and time. Psychiatric: Mood and Affect: Mood is anxious. Speech: Speech is tangential. Diagnostic Studies / Procedures ELECTROCARDIOGRAMS: No results found for this visit on 04/12/21. LABORATORY STUDIES: No results found for this visit on 04/12/21. IMAGING STUDIES: XR CHEST PA+LAT Final Result by User, [email or web address] (04/12 2030) EXAMINATION: CHEST X-RAY TWO VIEWS EXAM TIME: 1907 hours COMPARISON: 12/12/2018. HISTORY: Sinus congestion and drainage, headache, cough and rib cage pain. FINDINGS: PA and lateral views of the chest are submitted for evaluation. The heart is within normal limits in size. Pulmonary vascularity is within normal limits. The lungs are well expanded without focal airspace consolidation. No pleural effusions. No pneumothorax. IMPRESSION: No acute cardiopulmonary process. Referred By: Interpreted By: Sujey Carpio MD, 04/12/2021 8:28 PM MEDICATIONS: Medications - No data to display Discharge Medication List as of 04/12/2021 8:34 PM START taking these medications Details benzonatate (TESSALON PERLES) 100 MG capsule Take 2 capsules (200 mg total) by mouth 3 (three) times daily as needed., Starting 04/12/2021, Until 04/19/2021, Eprescribe Class: Eprescribe Pharmacy: [facility]/pharmacy #[id number] [facility] [address] [facility] (Ph #: [phone]) cyclobenzaprine 10 MG tablet Take 1 tablet (10 mg total) by mouth 3 (three) times daily as needed. Do not take if driving, Starting 04/12/2021, Until Tu04/22/2021, Eprescribe Class: Eprescribe Pharmacy: [facility]/pharmacy #[id number] - [facility] [address] [facility] ( #: [phone]) ED Course / Medical Decision Making MDM Number of Diagnoses or Management Options COVID Diagnosis management comments: I had a very lengthy conversation with patient about his symptoms and recommended that he follow-up with his PCP for possible long hauler is Covid related symptoms including the sensation that he cannot get a deep breath, he was given reassurance that his oxygen levelwas within normal limits. I reviewed with patient that he should be able to return home, as it is very unlikely per recommendations that he is still contagious. Patient asking what kind of medication he can take, steroids notindicated at this time. Patient does express concern for possible pulmonary embolism, I reviewed PERC criteria with patient, PERC negative, I have low suspicion for acute PE. I offered him transfer to emergency room for further evaluation including D-dimer and possible CT, but patient speech tangential and could not answer directly if he were to transfer to emergency room or not. He was advised that emergency room is open 05/04 for further evaluation if he feels this is needed. Nontoxic exit exam, 100% on room air this is normal. Refill for Flexeril as patient states he has had some relief of his symptoms. Clinical Impression COVID (Primary) Disposition: Discharge NOTE: I dictated portions of this note using [employer] speech recognition software. Occasional wrong word or sound-alike substitutions may have occurred due to the inherent limitations of voice recognition software. RAINA HARLEY 04/12/2021 RAINA Harley 04/12/212125 Cosigned by Sarahy Headley MD at 04/13/2021 12:08 AM CDT * Eunice Peguero RN - 04/12/2021 6:53 PM CDT Reports sinus congestion, drainage, and headaches since 03/26, pain to ribcage since Wednesday, increased pain with deep breath, states feels like he cannot take a full breath, diagnosed with covid on04/01, taking tylenol and ibuprofen for symptoms, states tried a flexeril yesterday. documented in this encounter Plan of Treatment Not on file documented as of this encounter Procedures Procedure Name Priority Date/Time Associated Diagnosis Comments XR CHEST PA+LAT STAT 04/12/2021 7:10 PM CDT documented in this encounter Results * XR CHEST PA+LAT (04/12/2021 7:10 PM CDT) Anatomical Region Laterality Modality Chest Radiographic Katarzyna ging 04/12/2021 8:28 PM CDT Impressions 04/12/2021 8:29 PM CDT IMPRESSION: No acute cardiopulmonary process. Referred By: ?? Interpreted By: Sujey Carpio MD, 04/12/2021 8:28 PM Narrative 04/12/2021 8:29 PM CDT EXAMINATION: CHEST X-RAY TWO VIEWS EXAM TIME: 1907 hours COMPARISON: 12/12/2018. HISTORY: Sinus congestion and drainage, headache, cough and rib cage pain. FINDINGS: PA and lateral views of the chest are submitted for evaluation. The heart is within normal limits in size. Pulmonary vascularity is within normal limits. The lungs are well expanded without focal airspace consolidation. No pleural effusions. No pneumothorax. Procedure Note Hilda Carpio MD - 04/12/2021 EXAMINATION: CHEST X-RAY TWO VIEWS EXAM TIME: 1907 hours COMPARISON: 12/12/2018. HISTORY: Sinus congestion and drainage, headache, cough and rib cage pain. FINDINGS: PA and lateral views of the chest are submitted for evaluation. The heartis within normal limits in size. Pulmonary vascularity is within normallimits. The lungs are well expanded without focal airspace consolidation.No pleural effusions. No pneumothorax. IMPRESSION: No acute cardiopulmonary process. Referred By: Interpreted By: Sujey Carpio MD, 04/12/2021 8:28 PM us Luna Osorio SHIP CONSTRUCTION TEACHER GENERAL IMAGING Final Resul t documented in this encounter Visit Diagnoses Diagnosis COVID- Primary documented in this encounter Care Teams Building Maintenance Custodian Relationship Specialty Start Date End Date None, Provider, PCP - General 12/31/19 documented as of this encounter
--- OUTSIDE RECORDS SUMMARY | 2024-09-10 03:48 | XMS_ITS | Encounter Summary ---
Author Organization [facility] Address [address] [place] [address]. [place], [place] [id number] [place], [place] [id number] Care Team Providers Care Research Physician Name Role Phone None, Provider MD Primary Care Provider Unavaila ble Reason for Visit * Reason Comments Abdominal Pain Encounter Details Date Type Department Care Team (Late st Contact Info) Description 03/20/2020 12:45 AM CDT - 03/20/2020 1:[address] [facility] [place] [address] Teresa Velez MD [address] [facility] [place] [address] Abdominal Pain Discharge Disposition: Left Against Medical [...] Sign Reading Time Taken Comments Blood Pressure 138/86 03/20/2020 12:41 AM CDT Pulse 72 03/20/2020 12:41 AM CDT Temperature 36.7 ??C (98.1 ??F) 03/20/2020 12:41 AM C DT Respiratory Rate 18 03/20/2020 12:41 AM CDT Oxygen Saturation 97% 03/20/2020 12:41 AM CDT Inhaled Oxygen Concentration - - Weight - - Height 188 cm (6' 2 ) 03/20/2020 12:41 AM CDT Body Mass Index - - documented in this encounter Medications at Time [...] (six) hours as needed for Flatulence. amoxicillin 875 MG tablet Take 875 mg [...] as of this encounter ED Notes * Teresa Velez MD - 03/20/2020 1:47 AM CDT Patient left without being seen after triage but before I was able to see him. His ER stay was 1:08in length. Teresa Velez MD 03/20/20 0148 * William Phillips RN - 03/20/2020 1:41 AM CDT Pt upset that has not been into see patient. Pt threatening to leave. MD aware. WILLIAM PHILLIPS RN * William Phillips RN - 03/20/2020 1:20 AM CDT Patient's visitor came out to nurses station to inform me that the patient wanted to talk to me. WILLIAM PHILLIPS RN * William Phillips RN - 03/20/2020 1:00 AM CDT Pt placed call light on, this RN entered room to ask what he needed. Pt explained he was upset thatno one has been in to see him. This RN made patient aware that I would be his nurse. WLILIAM PHILLIPS RN * Shawanda Castrejon RN - 03/20/2020 12:38 AM CDT Pt to the ed reporting all over abdominal pain. Pt took magnesium citrate last evening and has beenin pain since. Pt reports constipation for the past 2 days. Pt denies any other sx.SHAWANDA CASTREJON RN documented in this encounter Plan of Treatment Not on file documented as of this encounter Visit Diagnoses Diagnosis Abdominal pain, unspecified abdominal location- Primary documented in this encounter Care Teams Research Physician Relationship Specialty Start Date End Date None, Provider, PCP - General 12/31/19 documented as of this encounter
--- OUTSIDE RECORDS SUMMARY | 2024-09-10 03:48 | XMS_ITS | Encounter Summary ---
Author Organization [facility] Address [address] [place] [address]. [place] [address] Care Team Providers Care Earrings Fabricator Name Role Phone None, Provider Primary Care Provider Alisson oliva Encounter Details Date Type Department Care Team (Latest Contact Info) Description 12/31/2019 Travel Social History Tobacco Use Types Packs/Day [...] on filedocumented in this encounter Care Teams Earrings Fabricator Relationship Specialty Start Date End Date None, ProviderMD PCP - General 12/31/19 documented as of this encounter
--- OUTSIDE RECORDS SUMMARY | 2024-09-10 03:48 | XMS_ITS | Encounter Summary ---
Author Organization [facility] Address [address] [place] [address]. [place], [place] [address] [place], [place] [id number] Care Team Providers Care Bead Wrapper Name Role Phone None, Provider MD Primary Care Provider Unavaila ble Reason for Visit * Reason Onset Date Comments Other 01/01/2020 questions about ER follow up Encounter Details Date Type Department Care Team ([facility] st Contact Info) Description 01/01/2020 Telephone [facility] - [place] [address] [place] [phone] Thanh Lala MD [address] [facility] [address] [place] [address] Other (questions about ER follow up) Social History Tobacco Use Types Packs/Day Years [...] as of this encounter Progress Notes * Hillary Ca - 01/01/2020 2:11 PM CDT Pt was seen at the ER at [facility] and does not have a PCP. He was given Dr Lala's name. Advised pt that Dr Lala is not accepting new patients but would see him for one follow up visit. Advised pt that we would not refill his medications. Pt asked me to verify with the practice office associate andthe doctor. Tried to call pt back to recommend that he contact his insurance to help him set up a new PCP but was unable to get a hold of him. documented in this encounter Plan of Treatment Not on file documented as of this encounter Visit Diagnoses Not on filedocumented in this encounter Care Teams Bead Wrapper Relationship Specialty Start Date End Date None, Provider, PCP - General 12/31/19 documented as of this encounter
--- OUTSIDE RECORDS SUMMARY | 2024-09-10 03:48 | XMS_ITS | Encounter Summary ---
Author Organization [facility] Address [address] [place] [address]. [place], [place] [id number] [place] [address] Care Team Providers Care Rn House Supervisor Name Role Phone None, Provider Primary Care Provider Unavaila ble Reason for Visit * Reason Comments Allergies Encounter Details Date Type Department Care Team (Latest Contact Info) Description 12/19/2020 4:37 PM CDT - 12/19/2020 6:30 PM CDT Hospital Encounter [facility] [place] [address], [place] [id number] Rhoda Pritchard MD [address] [place] [address] Allergies Discharge Disposition: Home or Self Care (Routine [...] have Coronavirus / COVID-19? No / Unsure 12/19/2020 4:20 PM CDT documented as of this encounter Last Filed Vital Signs Vital Sign Reading Time Taken Comments Blood Pressure 155/98 12/19/2020 4:44 PM CDT Pulse 69 12/19/2020 4:44 PM CDT Temperature 36.3 ??C (97.3 ??F) 12/19/2020 4:44 PM CD T Respiratory Rate 18 12/19/2020 4:44 PM CDT Oxygen Saturation 97% 12/19/2020 4:44 PM CDT Inhaled Oxygen Concentration - - Weight 118.4 kg (261 lb) 12/19/2020 4:44 PM CDT Height 188 cm (6' 2 ) 12/19/2020 4:44 PM CDT Body Mass Index 33.51 12/19/2020 4:44 PM CDT documented in this encounter Discharge Instructions * Attachments The following attachments cannot be sent through Care Everywhere. * Conjunctivitis ([facility]) ED ([place]) * Bacterial Upper Respiratory Infection Discharge Instructions, Adult ([place]) documented in this encounter Medications at Time [...] mouth 2 (two) times daily. 0 06/19/2019 1 amoxicillin-clav ulanate (AUGMENTIN) 875-125 MG tablet Take 1 tablet (875 mg total) by mouth 2 (two) times daily for 10 days. 20 tablet 12/19/2020 1 atenolol 100 MG tablet Take 1 tablet (100 mg total) by mouth daily. 30 tablet 01/05/2020 2 fluticasone propionate 50 MCG/ACT nasal spray 2 sprays by Nasal route daily. 12/09/2020 4 meclizine 25 MG tablet Take 25 mg by mouth 3 (three) times daily as needed. 4 Neomycin-Bacitra chalino Zn-Polymyx 3.5-400-27026 Ointment Apply 1 Application to eye 3 (three) times daily. 3 g 12/21/2020 4 olopatadine 0.1 % ophthalmic solution Place 1 drop into both eyes 2 (two) times daily. 5 mL 08/25/2019 4 omeprazole 40 MG capsule Take 1 capsule (40 mg total) by mouth daily. 4 tobramycin 0.3 % ophthalmic solution Place 1 drop into both eyes every 4 (four) hours for 10 days. 5 mL 12/19/2020 1 documented as of this encounter ED Notes * Rhoda Pritchard MD - 12/19/2020 6:30 PM CDT [facility] Urgent [facility] [place], [place] HISTORICAL INFORMATION Primary Care Doctor: Provider MD Ayaka Patient information was obtained primarily from the patient, nursing notes. History/Exam limitations: None Provider at Bedside Date/Time Event User Comments 12/19/20 5736 Provider at Bedside Assessing Patient RHODA PRITCHARD CHIEF COMPLAINT Allergies Chief Complaint Patient presents with ??? Allergies HPI Carlos Mcgee is a 50-year-old male who presents with history of allergy symptoms watery itchy eyes with drainage from the headaches. He also complains that he has been feeling weak and tired and almost flulike. He had a COVID-19 test done that was a PCR test this 4 days ago that was negative. He denies any nausea vomiting or diarrhea. He denies any skin rash at the present time. Denies chest pain or shortness of breath. Patient also complains of nasal and postnasal drainage for the past 2 weeks with mild frontal headaches for the same. Time he does have symptoms that are random and somewhat vague. On reviewing his chart the patient has been coming here as well as to doctors in the area with several nonspecific medical problems in the past few years. PAST MEDICAL HISTORY Past Medical History: Diagnosis Date ??? Anxiety ??? Benign carcinoid tumor of sigmoid colon ??? Depressed ??? Diabetes mellitus (CMS/HCC) type 2 ??? Heart attack (CMS/HCC) ??? Hypertension SURGICAL HISTORY Past Surgical History: Procedure Laterality Date ??? CARDIAC CATHETERIZATION ??? CHOLECYSTECTOMY ??? COLONOSCOPY ??? EGD CURRENT MEDICATIONS No current facility-administered medications for this encounter. Current Outpatient Medications: ??? amoxicillin-clavulanate (AUGMENTIN) 875-125 MG tablet, Take 1 tablet (875 mg total) by mouth 2 (two) times daily for 10 days., Disp: 20 tablet, Rfl: 0 ??? Neomycin-Bacitracin Zn-Polymyx [id number] Ointment, Apply 1 Application to eye 3 (three) times daily., Disp: 3 g, Rfl: 0 ??? ALPRAZolam 2 MG tablet, Take 1 tablet (2 mg total) by mouth 3 (three) times daily as needed (anxiety)., Disp: 7 tablet, Rfl: 0 ??? amoxicillin 875 MG tablet, Take 875 mg by mouth 2 (two) times daily., Disp: , Rfl: 0 ??? atenolol 100 MG tablet, Take 1 tablet (100 mg total) by mouth daily., Disp: 30 tablet, Rfl: 0 ??? diphenhydrAMINE 25 MG capsule, Take 25 mg by mouth every 6 (six) hours as needed for Itching., Disp: , Rfl: ??? meclizine 25 MG tablet, Take 25 mg by mouth 3 (three) times daily as needed., Disp: , Rfl: ??? olopatadine 0.1 % ophthalmic solution, Place [...] No ??? Sexual activity: Not on file Lifestyle ??? Physical activity Days per week: Not on file Minutes per session: Not on file ??? Stress: Not on file Relationships ??? Social connections Talks on phone: Not on file Gets together: Not on file Attends mormon service: Not on file Active member of [...] SYSTEMS Constitutional: Denies fever, chills, weight loss Complains of body aches some fatigue and weakness Skin: Denies rash. Complains of some redness to both eyes and occasional drainage and itching HEENT: Denies sore throat or ear pain. Respiratory: Denies cough or shortness of breath. Cardiovascular: Denies chest pain, palpitations or swelling. GI: Denies abdominal pain, nausea, vomiting, or diarrhea. : Denies dysuria, urinary frequency. Musculoskeletal: Denies back pain. Neurologic: Denies headache, focal weakness or sensory changes. Psychiatric: Denies depression, suicidal ideation or homicidal ideation. See HPI for further details. All systems negative except as marked. Physical Exam VITAL SIGNS: Filed Vitals: 12/19/20 1644 BP: (!) 155/98 Pulse: 69 Resp: 18 Temp: 97.3 ??F (36.3 ??C) TempSrc: Temporal SpO2: 97% Weight: 118.4 kg (261 lb) Height: 6' 2 (1.88 m) Constitutional: Well developed, No acute distress, Non-toxic appearance. Integument: Warm, Dry, No erythema, No rash. HEENT: Normocephalic, Atraumatic, Conjunctiva with mild injection bilaterally Neck- Normal range of motion, Supple Back- Normal range of motion, No gross abnormality Respiratory: Normal breath sounds, No respiratory distress. Cardiovascular: Normal heart rate, Normal rhythm GI: Bowel sounds normal, Soft, No tenderness Musculoskeletal: Good ROM, no deformities noted Neurologic: Alert & oriented x 3, No focal deficits noted. Psychiatric: Affect normal, Judgment normal, Mood normal. EKG (interpreted by ED provider) No results found for this visit on 12/19/20. LABORATORY Labs Reviewed URINALYSIS AUTO DIP INFLUENZA A & B RADIOLOGY No orders to display PROCEDURES Procedures MDM 50-year-old who presents with vague symptoms of flulike symptoms as well as eye symptoms of some injection and drainage. Flu and test was negative here at the clinic Covid test done recently was negative patient has multiple multiple allergies and also has significant nasal and postnasal drainage contributing to acute sinusitis and acute conjunctivitis keeping his allergies in mind will be treated with antibiotics and eyedrops eyedrops and referred to primary MD I have discussed today's findings with the [...] of these instructions. Impression/Disposition SNOMED CT(R) 1. Conjunctivitis CONJUNCTIVITIS 2. Sinusitis, acute ACUTE SINUSITIS Disposition: Discharge Medications - No data to display Discharge Medication List as of 12/19/2020 6:17 PM START taking these medications Details amoxicillin-clavulanate (AUGMENTIN) 875-125 MG tablet Take 1 tablet (875 mg total) by mouth 2 (two)times daily for 10 days., Starting [facility] 12/19/2020, Until [place] 12/29/2020, Eprescribe Class: Eprescribe Pharmacy: [place] [address] (Ph #: [phone]) tobramycin 0.3 % ophthalmic solution Place 1 drop into both eyes every 4 (four) hours for 10 days.,Starting [facility] 12/19/2020, Until 12/29/2020, Eprescribe Class: Eprescribe Pharmacy: [place] [address] (Ph #: [phone]) MD Rhoda FELTON MD 12/21/20 190 * Alexandria Sexton RN - 12/19/2020 6:05 PM CDT FLU A AND FLU B ARE NEGATIVE, PROVIDER AWARE AND STATED VERBAL UNDERSTANDING. * Alexandria Sexton RN - 12/19/2020 4:46 PM CDT PT TO UC WITH C/O ALLERGY SX, WATERY, ITCHY EYES, AND HEADACHES. PT HAD RANDOM SYMPTOMS LAST WEEK, NAUSEA SOB, HE STATED THESE SX WENT AWAY AFTER A FEW DAYS. PT IS PULLING OLD MEDICATION FROM HIS POCKET THAT HE HAS BEEN USING IN HIS EYES. PT CONTINUES TO TALK IN RUN ON SENTENCES, STATED HE COULD BARLEY SEE ME FROM HIS CHAIR, I ASKED HIM IF HE DROVE SELF HERE, HE STATED HE DID, I'M FINE TO DRIVE documented in this encounter Plan of Treatment Not on file documented as of this encounter Procedures Procedure Name Priority Date/Time Associated Diagnosis Comments INFLUENZA A & B STAT 12/19/2020 5:19 PM CDT URINALYSIS AUTO DIP STAT 12/19/2020 5 :19 PM CDT documented in this encounter Results * (ABNORMAL) URINALYSIS AUTO DIP (12/19/2020 5:19 PM CDT) SPECIMEN TYPE URINE CLEAN CATCH 12/19/2020 5:20 PM CDT [facility] COLOR (U) DARK YELLOW 12/23/2020 1:25 PM CDT [facility] TRANSPARENCY CLEAR 12/23/2020 1:25 PM CDT [facility] SPECIFIC GRAVITY (U) 1.025 1.001 - 1.030 12/23/2020 1:25 PM CDT [facility] U PH 6.0 5.0 - 9.0 12/23/2020 1:25 PM CDT [facility] LEUKOCYTES (U) NEGATIVE NEGATIVE 12/23/2020 1:25 PM CDT [facility] NITRITES NEGATIVE NEGATIVE 12/23/2020 1:25 PM CDT [facility] PROTEIN (U) 100(H) <30 MG/DL 12/23/2020 1:25 PM CDT [facility] URINE GLUCOSE NORMAL NORMAL MG/DL 12/23/2020 1:25 PM CDT [facility] KETONES MG/DL (U) TRACE(A) NEGATIVE MG/DL 12/23/2020 1:25 PM CDT [facility] UROBILINOGEN 1.0(A) NORMAL MG/DL 12/23/2020 1:25 PM CDT [facility] BILIRUBIN (U) MODERATE(A) NEGATIVE MG/DL 12/23/2020 1:25 PM CDT [facility] BLOOD (U) NEGATIVE NEGATIVE 12/23/2020 1:25 PM CDT [facility] URINE SPECIMEN OBTAINED BY CLEAN CATCH PROCEDURE / Unknown 12/19/2020 5:19 PM CDT Rhoda Pritchard MD URINE ORDERABLES Final Resu lt [address] [address], * INFLUENZA A & B (12/19/2020 5:19 PM CDT) SPECIMEN TYPE unknown 12/23/2020 9:50 AM CDT [facility] INFLUENZA A NEGATIVE NEGATIVE 12/23/2020 10:32 AM CDT [facility] INFLUENZA B NEGATIVE NEGATIVE 12/23/2020 10:32 AM CDT [facility] Comment: Interpretation: Negative for Influenza A and B. A negative result does not exclude influenza virus infection. If influenza is circulating in your community, a diagnosis of influenza should be considered based on a patient's clinical presentation and empiric antiviral treatment should be considered, if indicated. If more conclusive testing is needed for hospitalized inpatients, follow-up confirmatory testing with RT-PCR requires a separate order. NASOPHARYNGEAL SWAB / Unknown 12/19/2020 5:19 PM CDT Rhoda Pritchard MD MICROBIOLOGY - GENERAL ORDE [facility] Final Result [address] [address], documented in this encounter Visit Diagnoses Diagnosis Conjunctivitis- Primary Conjunctivitis, unspecified Sinusitis, acute Acute sinusitis, unspecified documented in this encounter Care Teams Rn House Supervisor Relationship Specialty Start Date End Date None, Provider, PCP - General 12/31/19 documented as of this encounter
--- OUTSIDE RECORDS SUMMARY | 2024-09-10 03:48 | XMS_ITS | Encounter Summary ---
Author Organization [facility] Address [address] [place] [address]. [place], [place] [id number] [place] [address] Care Team Providers Care Wet Pan Operator Name Role Phone Radha Palafox NP Primary Care Provider [phone] Reason for Visit * Reason Comments Anxiety Encounter Details Date Type Department Care Team (Late st Contact Info) Description 12/20/2019 9:39 PM CDT - 12/20/2019 10:12 PM CDT Emergency [facility] [place] [address] Ramila Phillips, OMI [address] [place] [address] Anxiety Discharge Disposition: Home or Self Care [...] Sign Reading Time Taken Comments Blood Pressure 153/98 12/20/2019 9:36 PM CDT Pulse 67 12/20/2019 9:36 PM CDT Temperature 36.5 ??C (97.7 ??F) 12/20/2019 9:36 PM CD T Respiratory Rate 18 12/20/2019 9:36 PM CDT Oxygen Saturation 97% 12/20/2019 9:36 PM CDT Inhaled Oxygen Concentration - - Weight 117.9 kg (260 lb) 12/20/2019 9:36 PM CDT Height 185.4 cm (6' 1 ) 12/20/2019 9:36 PM CDT Body Mass Index 34.3 12/20/2019 9:36 PM CDT documented in this encounter Discharge Instructions * Discharge Instructions* Ramila Phillips PA-C - 12/20/2019 10:02 PM CDT Take anxiety medication as prescribed. Please follow-up with the assigned primary care provider, or1 of your choice, to further discuss long-term appropriate treatment of anxiety. It is not recommended that you continue to seek this medication in the emergency room or urgent care setting, and I will not refill this medication again from this venue. * Attachments The following attachments cannot be sent through Care Everywhere. * Generalized Anxiety Disorder Discharge Instructions ([place]) documented in this encounter Medications at Time of Discharge diphenhydrAMINE 25 MG capsule Take 1 capsule (25 mg total) by mouth every 6 (six) hours as needed for Itching. simethicone (GAS-X) 80 MG chewable tablet Chew 80 mg by mouth every 6 (six) hours as needed for Flatulence. ALPRAZolam 2 MG tablet Take 1 tablet (2 mg total) by mouth 3 (three) times a day for 3 days. 9 tablet 12/20/2019 12/23/2019 amoxicillin 875 MG tablet Take 875 mg [...] as of this encounter ED Notes * Lottie Field RN - 12/20/2019 10:12 PM CDT Pt verbalizes understanding of medication and follow up care. No questions or concerns at d/c. Lottie Field RN * Ramila Phillips PA-C - 12/20/2019 9:55 PM CDT ED NOTE Carlos Law Arely 1970 Chief Complaint Chief Complaint Patient presents with ??? Anxiety History of Present Illness 49-year-old male patient with longstanding history of generalized anxiety disorder who has been taking alprazolam x21 years, presents to the emergency room requesting medication refill for alprazolam2 mg 3 times daily. Patient is known to this medical system and has been seen multiple times requesting refill on this medication, including by this provider. No new symptoms reported. He states thathe has 1 alprazolam tablet left. He states that he recently fired his PCP because they would not prescribe this medication to him. No significant panic attack reported today. He denies suicidal homicidal ideation. Denies nausea, vomiting, fever, chills, gooseflesh, tremors, sweats, chest pain, short ness of breath. Last refill of this medication was at [facility] urgent care on 11/30/2019. No other symptoms or history given at this time. States he recently tested negative for COVID-[address] in [place], [place]. Medical History ALLERGIES: Allergies Allergen Reactions ??? [...] mg total) by mouth 3 (three) times a day for 3 days. Yes Ramila Phillips PA-C amoxicillin 875 MG tablet Take 875 [...] Systems Review of Systems Constitutional: Negative for activity change, appetite change, fever and unexpected weight change. HENT: Negative for ear pain, sore throat and trouble swallowing. Eyes: Negative. Respiratory: Negative for cough, chest tightness and shortness of breath. Cardiovascular: Negative for chest pain, palpitations and leg swelling. Gastrointestinal: Negative for abdominal distention, abdominal pain, constipation, diarrhea, nauseaand vomiting. Endocrine: Negative. Genitourinary: Negative for dysuria, flank pain and hematuria. Musculoskeletal: Negative for arthralgias, back pain, myalgias and neck pain. Skin: Negative for color change, rash and wound. Allergic/Immunologic: Negative for immunocompromised state. Neurological: Negative for dizziness, speech difficulty, weakness, light- headedness, numbness and headaches. Hematological: Negative for adenopathy. Psychiatric/Behavioral: The patient is nervous/anxious. Physical Exam Filed Vitals: 12/20/19 2136 BP: (!) 153/98 Pulse: 67 Resp: 18 Temp: 97.7 ??F (36.5 ??C) SpO2: 97% Weight: 117.9 kg (260 lb) Height: 6' 1 (1.854 m) Physical Exam Constitutional: He is oriented to person, place, and time. He appears well- developed and well-nourished. No distress. HENT: Head: Normocephalic and atraumatic. Right Ear: External ear normal. Left Ear: External ear normal. Nose: Nose normal. Mouth/Throat: Oropharynx is clear and moist. No oropharyngeal exudate. Eyes: Pupils are equal, round, and reactive to light. Conjunctivae and EOM are normal. Neck: Normal range of motion. Neck supple. No tracheal deviation present. No thyromegaly present. Cardiovascular: Normal rate, regular rhythm, normal heart sounds and intact distal pulses. Pulmonary/Chest: Effort normal and breath sounds normal. No respiratory distress. Abdominal: Soft. Bowel sounds are normal. He exhibits no distension and no mass. There is no tenderness. There is no rebound and no guarding. No hernia. Musculoskeletal: Normal range of motion. He exhibits no edema, tenderness or deformity. Lymphadenopathy: He has no cervical adenopathy. Neurological: He is alert and oriented to person, place, and time. He displays normal reflexes. No cranial nerve deficit or sensory deficit. He exhibits normal muscle tone. Coordination normal. Skin: Skin is warm and dry. Capillary refill takes less than 2 seconds. No rash noted. He is not diaphoretic. No pallor. Psychiatric: He has a normal mood and affect. His behavior is normal. Judgment and thought content normal. Anxiolytic drug seeking behavior Nursing note and vitals reviewed. Diagnostic Studies / Procedures ELECTROCARDIOGRAMS: No results found for this visit on 12/20/19. LABORATORY STUDIES: No results found for this visit on 12/20/19. IMAGING STUDIES No orders to display ED Course / Medical Decision Making Patient is in no acute distress or respiratory distress, vital signs are stable, afebrile, no hypoxia or tachypnea or tachycardia. No indication for emergent work-up. Educated patient that I will only give him a minimal prescription refill, and that I will not refill this medication in the future. Patient discharged home. Medications - No data to display Clinical Impression Generalized anxiety disorder (Primary) Drug-seeking behavior Current Discharge Medication List Disposition: Discharge Follow-Up: Elizabeth Trujillo MD [address] [facility] [address] In 2 days RAMILA PHILLIPS PA-C 12/20/2019 Ramila Phillips PA-C 12/20/192201 Cosigned by Joss Ha MD at 12/20/2019 10:24 PM CDT * Shari Lennon RN - 12/20/2019 9:34 PM CDT Pt states - I am having anxiety attacks for a while , I haven't seen a DR since november and that isn't helping. documented in this encounter Plan of Treatment Not on file documented as of this encounter Visit Diagnoses Diagnosis Generalized anxiety disorder- Primary Drug-seeking behavior Other, mixed, or unspecified nondependent drug abuse, unspecified documented in this encounter Care Teams Wet Pan Operator Relationship Specialty Start Date End Date Radha Palafox NP PCP - General NURSE PRACTITIONER 08/25/19 12/30/19 documented as of this encounter
--- OUTSIDE RECORDS SUMMARY | 2024-09-10 03:48 | XMS_ITS | Encounter Summary ---
Author Organization [facility] Address [address] [place] [address]. [place], [place] [address] [place] [id number] Care Team Providers Care Telecommunications Network Planner Name Role Phone None, Provider MD Primary Care Provider Unavaila ble Reason for Visit * Reason Comments URI Sinus drainage, poss ible fever, c/o clamminess. Pt reports not taking his psych medications due to not having a doctor. Patient c/o increased anxiety. Encounter Details Date Type Department Care Team (Late st Contact Info) Description 12/31/2019 7:10 AM CDT - 12/31/2019 8:08 AM CDT Emergency [facility] Emergency Room [address] [place] [address] Bayron Blood DO URI (Sinus drainage, possible fever, c/o clamminess. Pt reports not taking his psych medications due to not having a doctor. Patient c/o increased anxiety. ) Discharge Disposition: Home or Self Care (Routine [...] Sign Reading Time Taken Comments Blood Pressure 154/97 12/31/2019 8:02 AM CDT Pulse 69 12/31/2019 7:13 AM CDT Temperature 35.6 ??C (96.1 ??F) 12/31/2019 7:13 AM CD T Respiratory Rate 18 12/31/2019 7:13 AM CDT Oxygen Saturation 100% 12/31/2019 7:13 AM CDT Inhaled Oxygen Concentration - - Weight 117.9 kg (260 lb) 12/31/2019 7:13 AM CDT Height 188 cm (6' 2 ) 12/31/2019 7:13 AM CDT Body Mass Index 33.38 12/31/2019 7:13 AM CDT documented in this encounter Discharge Instructions * Attachments The following attachments cannot be sent through Care Everywhere. * Anxiety Discharge Instructions, Adult (Bulgarian) documented in this encounter Medications at Time [...] as of this encounter ED Notes * Bayron Blood DO - 12/31/2019 7:05 AM CDT [facility] ENCOUNTER HISTORICAL INFORMATION Primary Care Doctor: ROBERTO WILL NP Patient information was obtained primarily from the patient, nursing notes History/Exam limitations: None Provider at Bedside None CHIEF COMPLAINT No chief complaint on file. CRISTINA Mcgee is a 49-year-old male who presents with complaints of anxiety. PMHx anxiety, DM2, depression, HTN. Patient has been on xanax x20-yrs. Has been seen in ED multiple times requesting medication refill. Has a PMD who refuses to prescribe him xanax. Had a psychiatrist that he didn't like. Had an appointment for December 12, 2019 but has not followed up. Comes requesting a refill of xanax. PAST MEDICAL HISTORY Past Medical History: Diagnosis Date ??? Anxiety ??? Benign carcinoid tumor of sigmoid colon ??? Depressed ??? Diabetes mellitus (CMS/HCC) type 2 ??? Heart attack (CMS/HCC) ??? Hypertension SURGICAL HISTORY Past Surgical History: Procedure Laterality Date ??? CARDIAC CATHETERIZATION ??? CHOLECYSTECTOMY ??? COLONOSCOPY ??? EGD CURRENT MEDICATIONS No current facility-administered medications for this encounter. Current Outpatient Medications: ??? amoxicillin 875 MG tablet, Take 875 [...] activity: Not on file Lifestyle ??? Physical activity: Days per week: Not on file Minutes per session: Not on file ??? Stress: Not on file Relationships ??? Social connections: Talks on phone: Not on file Gets together: Not on file Attends jainism service: Not on file Active member of [...] Not on file REVIEW OF SYSTEMS Constitutional: no fevers, no chills, no generalized weakness Eyes: no changes in vision HEENT: no nasal congestion, no sore throat Respiratory: No shortness of breath, no cough, no wheeze Cardiovascular: No chest pain, no edema Gastrointestinal: No abdominal pain, no nausea, no vomiting, no diarrhea, no constipation Genitourinary: No dysuria, no hematuria Musculoskeletal: no arthralgia, no myalgia Skin: no rash Neurological: no headache, no focal weakness, no numbness PHYSICAL EXAM VITAL SIGNS: There were no vitals filed for this visit. Constitutional: no acute distress, alert, no signs of trauma HEENT: PER, moist oral mucosa Neck: trachea-midline Respiratory: no respiratory distress, speaking in full sentences Cardiovascular: well-perfused Musculoskeletal: no overt deformities Skin: grossly intact, warm, dry Neurologic: alert Psych: cooperative, appropriate mood and affect Pulse Oximetry Interpretation Saturation: 100% Oxygen Delivery: room air Interpretation: normal Rhythm Strip Interpretation (interpreted by ED provider) Rhythm: sinus Ventricular Rate: 69 DDX/MDM Ddx: anxiety, chronic benzodiazepine use, personality disorder Patient presents requesting medication refill. I explained to patient that I am not going to write him xanax as I think it is inappropriate for long-term use and inappropriate to prescribe from the emergency department. I explained to the patient that I have limitations as an ER physician and managing long-term anxiety is not my specialty. He would be better suited seeing a psychiatrist. I explained that xanax is not an appropriate medication for long-term management of anxiety. I explained that much like chronic alcohol abuse, chronic benzodiazepine use is associated with worsening anxiety and several long-term complications. I explained that SSRI medication is more suited for long-term man agement of anxiety, but patient states he is allergic to these medications. I explained to the patient that my training is not adequate to manage someone with 39 medication allergies in the emergencyroom because this is not an emergent problem, and this this is something he needs to work out with a primary care physician and psychiatrist. He became very angry questioning my reasoning. As the MSEwas complete, I asked that the patient please leave the ER while informing him that he is always welcome to come back for evaluation of any emergent medical condition, but that I will not be refilling anxiety medications from the ED now or at any time. Amount and/or Complexity of Data Reviewed Triage notes and available nursing notes reviewed Independent visualization of images, tracings: yes Decide to obtain previous medical records or to obtain history from someone other than the patient:yes Review and summarize past medical records: yes FINAL IMPRESSION 1. 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
--- OUTSIDE RECORDS SUMMARY | 2024-09-10 03:48 | XMS_ITS | Encounter Summary ---
Author Organization [facility] Address [address] [place] [address]. [place], [place] [address] [place] [address] Care Team Providers Care Car Sales Representative Name Role Phone None, Provider MD Primary Care Provider Unavaila ble Reason for Visit * Reason Comments Flu Like Symptoms Encounter Details Date Type Department Care Team (Latest Contact Info) Description 12/12/2018 3:02 PM CDT - 12/12/2018 4:12 PM CDT Hospital Encounter [facility] [address] Regina Carson, Charly Rodas PA-C [address] [place] [id number] Flu Like Symptoms Discharge Disposition: Home or [...] Sign Reading Time Taken Comments Blood Pressure 166/102 12/12/2018 3:05 PM CDT Pulse 78 12/12/2018 3:05 PM CDT Temperature 36.3 ??C (97.3 ??F) 12/12/2018 3:28 PM CD T Respiratory Rate 16 12/12/2018 3:05 PM CDT Oxygen Saturation 97% 12/12/2018 3:05 PM CDT Inhaled Oxygen Concentration - - Weight 119.7 kg (264 lb) 12/12/2018 3:05 PM CDT Height 188 cm (6' 2 ) 12/12/2018 3:05 PM CDT Body Mass Index 33.9 12/12/2018 3:05 PM CDT documented in this encounter Discharge Instructions * Discharge Instructions* Charly Durant PA-C - 12/12/2018 4:07 PM CDT Use oral steroids as directed for inflammation. Use Flonase for nasal congestion. Use albuterol inhaler if needed for asthma symptoms. Resume using Atenolol as directed. Follow-up with primary care provider for further evaluation and establish care as new patient and discuss your current medication use including the refills for your blood pressure medication. Return to the ED if symptoms change or worsen. * Attachments The following attachments cannot be sent through Care Everywhere. * Viral Upper Respiratory Infection Discharge Instructions, Adult (Turkish) documented in this encounter Medications at Time [...] Take 40 mg by mouth daily. 9 fluticasone propionate (FLONASE) 50 MCG/ACT nasal spray 2 sprays by Nasal route daily. 16 g 12/12/2018 0 meclizine 25 MG tablet Take 25 mg by mouth 3 (three) times daily as needed. 4 methylPREDNISolon e, BIJU, 4 MG tablet Take 1 tablet (4 mg total) by mouth daily. 6 TABS ON DAY ONE, 5 TABS DAY 2, 4 TABS DAY 3, 3 TABS DAY 4, 2 TABS DAY 5, AND 1 TABLET DAY SIX 1 each 12/12/2018 9 omeprazole 40 MG capsule Take 1 capsule (40 mg total) by mouth daily. 4 documented as of this encounter ED Notes * Charly Durant PA-C - 12/12/2018 3:29 PM CDT Chief Complaint Chief Complaint Patient presents with ??? Flu Like Symptoms History of Present Illness The patient is a 48-year-old male who presents the urgent care with reports of cough, congestion, posterior nasal drainage over the past 10 days. Patient reports he has some rib pain when coughing. Denies chest pain, shortness of breath, abdominal pain, urinary symptoms or diarrhea. Patient reportshe is out of his albuterol inhaler as of today and is also out of his atenolol blood pressure medication for the past 3 days. Patient does not currently have a primary care physician. Medical History ALLERGIES: Allergies Allergen Reactions ??? [...] Start Date End Date Taking? Authorizing Provider acetaminophen [address] 650 mg rectally every 4 (four) hours as needed for Fever. Yes Doc Abstract albuterol sulfate HFA 108 (90 [...] times daily as needed. Yes Doc Abstract methylPREDNISolone, BIJU, 4 MG tablet Take 1 tablet (4 mg total) by mouth daily. 6 TABS ON DAY ONE, 5 TABS DAY 2, 4 TABS DAY 3, 3 TABS DAY 4, 2 TABS DAY 5, AND 1 TABLET DAY SIX 12/12/18 Yes Charly Durant PA-C omeprazole 40 MG capsule Take 40 mg by mouth daily. Yes Doc Abstract simethicone (GAS-X) 80 MG chewable tablet Chew 80 mg by mouth every 6 (six) hours as needed for Flatulence. Yes Doc Abstract PAST MEDICAL HISTORY: Past Medical [...] Systems Review of Systems Constitutional: Negative for fever. HENT: Positive for congestion, postnasal drip, rhinorrhea and sinus pressure. Respiratory: Positive for cough. Negative for shortness of breath and wheezing. Cardiovascular: Negative for chest pain. Gastrointestinal: Negative for abdominal pain, nausea and vomiting. Genitourinary: Negative for dysuria. Musculoskeletal: Negative for back pain. All other systems reviewed and are negative. Physical Exam Filed Vitals: 12/12/18 1505 12/12/18 1528 BP: (!) 166/102 Pulse: 78 Resp: 16 Temp: 97.3 ??F (36.3 ??C) TempSrc: Oral SpO2: 97% Weight: 119.7 kg (264 lb) Height: 6' 2 (1.88 m) Physical Exam Constitutional: He is oriented to person, place, and time. He appears well- developed and well-nourished. No distress. HENT: Right Ear: External ear normal. Left Ear: External ear normal. Mouth/Throat: Oropharynx is clear and moist. No oropharyngeal exudate. Edematous nasal turbinates without drainage. Oropharynx open and normal. Voice is normal. Patient swallowing normally. Eyes: Conjunctivae and EOM are normal. Pupils are equal, round, and reactive to light. Neck: Normal range of motion. Cardiovascular: Normal rate, regular rhythm and normal heart sounds. Pulmonary/Chest: Effort normal and breath sounds normal. No respiratory distress. He has no wheezes. He exhibits no tenderness. No wheezing on lung exam. Breath sounds normal. Patient speaking full sentences without difficulty. Abdominal: Soft. Bowel sounds are normal. There is no tenderness. There is no rebound and no guarding. Musculoskeletal: Normal range of motion. Neurological: He is alert and oriented to person, place, and time. Skin: No rash noted. He is not diaphoretic. Psychiatric: He has a normal mood and affect. Nursing note and vitals reviewed. Diagnostic Studies / Procedures ELECTROCARDIOGRAMS: No results found for this visit on 12/12/18. LABORATORY STUDIES: Results for orders placed or performed during the hospital encounter of 12/12/18 RAPID STREP A Result Value Ref Range Specimen Type THROAT RAPID STREP TEST NEGATIVE NEGATIVE INFLUENZA A & B Result Value Ref Range Specimen Type NASOPHARYNGEAL SWAB INFLUENZA A NEGATIVE NEGATIVE INFLUENZA B NEGATIVE NEGATIVE IMAGING STUDIES XR CHEST PA+LAT Final Result by User, [id number] (12/12 1555) Patient name: CARLOS KELLY Examination: Chest x-ray 2 view Exam time: 12/12/2018 3:37 PM Clinical history: 48 years Male. Cough. Anterior rib pain. Shortness of breath. Comparison: 06/18/2018 Technique: Frontal and lateral views of the chest were obtained. Findings: No parenchymal consolidation. No pneumothorax or pleural effusion. Prominent heart size. Vertebral body heights are normal. Cholecystectomy clips. IMPRESSION: 1. No acute findings. Course / Medical Decision Making Swab negative. Strep swab negative. Chest x-ray shows no acute findings. Patient update on diagnosis of viral upper respiratory illness and agree with treatment use oral steroids, Flonase for nasal congestion and patient requested refill for albuterol inhaler. Patient requested refill for blood pressure medication Atenolol. Patient will be given 30 day supply and educated to follow up with PCP for further refills. He was educated to follow-up with primary care physician referral for further evaluation and returnto ED if symptoms change or worsen. Patient was given discharge instructions and return precautions and had no questions at this time. Clinical Impression Viral URI with cough (Primary) Disposition: Discharge Charly Durant PA-C 12/12/18 1618 Cosigned by Alcon James MD at 12/13/2018 8:42 AM CDT * Jhoana Martinez RN - 12/12/2018 3:03 PM CDT Patient c/o sob and rib pain for 2 days. Worse with coughing. Increased use of inhaler. Eyes swollen and having drainage Ear pain Chills , body aches. Fever up to 102 yesterday Headache Sore throat Out of albuterol inhaler and out of atenolol documented in this encounter Plan of Treatment Not on file documented as of this encounter Procedures Procedure Name Priority Date/Time Associated Diagnosis Comments XR CHEST PA+LAT STAT 12/12/2018 3:46 PM CDT STREP A, DNA STAT 12/12/2018 3:13 PM CDT RAPID STREP A STAT 12/12/2018 3:13 PM CDT INFLUENZA A & B STAT 12/12/2018 3:13 PM CDT documented in this encounter Results * XR CHEST PA+LAT (12/12/2018 3:46 PM CDT) Anatomical Region Laterality Modality Chest Radiographic Katarzyna ging 12/12/2018 3:54 PM CDT Impressions 12/12/2018 3:55 PM CDT IMPRESSION: 1. No acute findings. Narrative 12/12/2018 3:55 PM CDT Patient name: CARLOS KELLY Examination: Chest x-ray 2 view Exam time: 12/12/2018 3:37 PM Clinical history: 48 years Male. Cough. Anterior rib pain. Shortness of breath. Comparison: 06/18/2018 Technique: Frontal and lateral views of the chest were obtained. Findings: No parenchymal consolidation. No pneumothorax or pleural effusion. Prominent heart size. Vertebral body heights are normal. Cholecystectomy clips. Procedure Note Carlos Pichardo MD - 12/12/2018 Patient name: CARLOS KELLY Examination: Chest x-ray 2 view Exam time: 12/12/2018 3:37 PM Clinical history: 48 years Male. Cough. Anterior rib pain. Shortness of breath. Comparison: 06/18/2018 Technique: Frontal and lateral views of the chest were obtained. Findings: No parenchymal consolidation. No pneumothorax or pleural effusion. Prominent heart size. Vertebral body heights are normal. Cholecystectomy clips. IMPRESSION: 1. No acute findings. Charly Durant PARoby GENERAL IMAGING Final R esult * STREP A, DNA (12/12/2018 3:13 PM CDT) STREP A MOLECULAR NEGATIVE NEGATIVE 019 10:32 PM CDT [facility] Comment:SPECIMEN NEGATIVE FO R GROUP A STREPTOCOCCUS BY DNA AMPLIFICATION 12/12/2018 3:13 PM CDT Charly Durant PA-C MICROBIOLOGY - GENERAL ORDERABLES Final Result Performing Organization Address [facility] Co de Phone Number [facility] [address] [place] [address], * INFLUENZA A & B (12/12/2018 3:13 PM CDT) SPECIMEN TYPE NASOPHARYNGEAL SWAB 12/12/2018 3:20 PM CDT [facility] INFLUENZA A NEGATIVE NEGATIVE 12/12/2018 3:40 PM CDT [facility] INFLUENZA B NEGATIVE NEGATIVE 12/12/2018 3:40 PM CDT [facility] Comment: Interpretation: Negative for Influenza A and [...] testing with RT-PCR requires a separate order. NASAL STRUCTURE / Unknown 12/12/2018 3:13 PM CDT Charly Durant PA-C MICROBIOLOGY - GENERAL ORDERABLES Final Result Performing Organization Address City/[facility]/ZIP Co de Phone Number [facility] [address] [place] [address], [place] * RAPID STREP A (12/12/2018 3:13 PM CDT) SPECIMEN TYPE THROAT 12/12/2018 3:14 PM CDT [facility] RAPID STREP TEST NEGATIVE NEGATIVE 12/12/2018 3:33 PM CDT [facility] STRUCTURE OF ANTERIOR PORTION OF NECK / Unknown 12/12/2018 3:13 PM CDT us Charly Durant PA-C MICROBIOLOGY - GENERAL ORDERABLES Final Result Performing Organization Address City/State/[facility] Co de Phone Number [address] [address], [place] documented in this encounter Visit Diagnoses Diagnosis Viral URI with cough- Primary Acute upper respiratory infections of unspecified site documented in this encounter Care Teams Car Sales Representative Relationship Specialty Start Date End Date None, Provider, PCP - General 06/03/18 08/24/19 documented as of this encounter
--- OUTSIDE RECORDS SUMMARY | 2024-09-10 03:48 | XMS_ITS | Encounter Summary ---
Author Organization [facility] Address [address] [place] [address]. [place] [address] Care Team Providers Care Cane Flume Chute Operator Name Role Phone Radha Palafox MOVING PICTURE PRODUCER Primary Care Provider [phone] Encounter Details Date Type Department Care Team (Latest Contact Info) Description 12/11/2019 Travel Social History Tobacco Use Types Packs/Day [...] on filedocumented in this encounter Care Teams Cane Flume Chute Operator Relationship Specialty Start Date End Date Radha Palafox MOVING PICTURE PRODUCER PCP - General NURSE PRACTITIONER 08/25/19 12/30/19 documented as of this encounter
--- OUTSIDE RECORDS SUMMARY | 2024-09-10 03:48 | XMS_ITS | Encounter Summary ---
Author Organization [facility] Address [address] [place] [address]. [place], [place] [id number] [place] [address] Care Team Providers Care Food Order Delivery Runner Name Role Phone None, Provider MD Primary Care Provider Unavaila ble Reason for Visit * Reason Comments Med Refills Encounter Details Date Type Department Care Team (Late st Contact Info) Description 01/19/2020 5:13 PM CDT - 01/19/2020 6:[address] [facility] [place] [address] Luna Osorio, [address] [address] Med Refills Discharge Disposition: Home or Self [...] Sign Reading Time Taken Comments Blood Pressure 173/90 01/19/2020 4:55 PM CDT Pulse 69 01/19/2020 6:17 PM CDT Temperature 36.1 ??C (97 ??F) 01/19/2020 4:55 PM CDT Respiratory Rate 18 01/19/2020 6:17 PM CDT Oxygen Saturation 99% 01/19/2020 6:17 PM CDT Inhaled Oxygen Concentration - - Weight 129.3 kg (285 lb) 01/19/2020 4:55 PM CDT Height 188 cm (6' 2 ) 01/19/2020 4:55 PM CDT Body Mass Index 36.59 01/19/2020 4:55 PM CDT documented in this encounter Discharge Instructions * Discharge Instructions* RAINA Harley - 01/19/2020 6:00 PM CDT Unfortunately, we are no longer able to offer refills for scheduled medication for chronic condition. Please continue to follow-up with your psychiatrist or your PCP for further management of your medications documented in this encounter Medications at Time [...] as of this encounter ED Notes * RAINA Harley - 01/19/2020 5:58 PM CDT Chief Complaint Chief Complaint Patient presents with ??? Med Refills History of Present Illness 49-year-old male presents for medication refill. He states he takes 2 mg of Xanax 3 times a day andhas done so for months, states he is unable to get a refill by his PCP and is awaiting a psychiatryappointment for next . History of generalized anxiety disorder and PTSD. Medical History ALLERGIES: Allergies Allergen Reactions ??? [...] as needed (anxiety). 01/05/20 Ric Curran MD amoxicillin 875 MG tablet Take 875 mg [...] for chills and fever. HENT: Negative for congestion, sinus pain and sore throat. Eyes: Negative for pain and redness. Respiratory: Negative for cough, chest tightness, shortness of breath and wheezing. Cardiovascular: Negative for chest pain. Gastrointestinal: Negative for abdominal pain, constipation, diarrhea, nausea and vomiting. Musculoskeletal: Negative for arthralgias and joint swelling. Skin: Negative for rash and wound. Neurological: Negative for headaches. Psychiatric/Behavioral: Negative for agitation. The patient is nervous/anxious. Physical Exam Filed Vitals: 01/19/20 1655 05/08/20 1817 BP: (!) 173/90 Pulse: 67 69 Resp: 18 18 Temp: 97 ??F (36.1 ??C) TempSrc: Temporal SpO2: 97% 99% Weight: 129.3 kg (285 lb) Height: 6' 2 (1.88 m) Physical Exam Constitutional: He is oriented to person, place, and time. He appears well-developed. HENT: Head: Normocephalic. Eyes: Pupils are equal, round, and reactive to light. Cardiovascular: Normal rate. Pulmonary/Chest: Effort normal. Musculoskeletal: Normal range of motion. Neurological: He is alert and oriented to person, place, and time. Skin: Skin is warm and dry. Psychiatric: He has a normal mood and affect. Nursing note and vitals reviewed. Diagnostic Studies / Procedures ELECTROCARDIOGRAMS: No results found for this visit on 01/19/20. LABORATORY STUDIES: No results found for this visit on 01/19/20. IMAGING STUDIES: No orders to display MEDICATIONS: Medications ALPRAZolam (XANAX) tablet 2 mg (2 mg Oral Given 01/19/201757) Discharge Medication List as of 01/19/2020 6:13 PM ED Course / Medical Decision Making MDM Number of Diagnoses or Management Options Medication refill: Diagnosis management comments: Per Dr. Curran's (ER physician) note, who last evaluated patient, patient was advised and admonished that our facility would no longer be able to refill scheduled medication for chronic condition. Patient was offered one-time dose of Xanax while here in emergency room and encouraged to further follow-up with his PCP or psychiatrist. Patient expressed frustration and multiple times asked in different ways for refill through the weekend. Advised patient no refills would be given as last notified. Nontoxic exit exam, not tachycardic, mildly hypertensive-which appearsto be baseline for patient. [facility] reveals 6 prescription for alprazolam in the month of December from 5 different providers Patient Progress Patient progress: stable Clinical Impression Medication refill (Primary) Disposition: Discharge RAINA HARLEY 01/19/2020 RAINA Harley 01/19/20 1830 Cosigned by Stanton Esparza MD at 01/19/2020 7:44 PM CDT * Bertha Sawant RN - 01/19/2020 4:56 PM CDT Pt ambulatory to triage from home requesting medication refill. Pt reports he has an appointment his with PCP on . Requesting a refill of his alprazolam. Pt reports he 2 mg TID. Hasn't been able to find a psychiatrist. Denies SI/HI at this time. Pt calm, cooperative, and in no acute distress at this time. BERTHA SAWANT, RN documented in this encounter Plan of Treatment Not on file documented as of this encounter Visit Diagnoses Diagnosis Medication refill- Primary Issue of repeat prescriptions documented in this encounter Administered Medications Inactive Administered Medications - up to 3 most recent administrations Medication Order MAR Action Action Date Dose Rate Site ALPRAZolam (XANAX) tablet 2 mg 2 mg, Oral, Once, 1 dose, On Wed01/19/20 at 1730 Given 01/19/2020 5:58 PM CDT 2 mg documented in this encounter Active and Recently Administered Medications Times are shown in CDT. Scheduled Medication Order 01/17/2020 01/18/2020 01/19/2020 ALPRAZolam (XANAX) tablet 2 mg (COMPLETED) 2 mg, Oral, Once, 1 dose, On Wed01/19/20 at 1730 1758 (Given - Provid er: Rivera De La Torre RN) documented in this encounter Care Teams Food Order Delivery Runner Relationship Specialty Start Date End Date None, Provider, PCP - General 12/31/19 documented as of this encounter
--- OUTSIDE RECORDS SUMMARY | 2024-09-10 03:48 | XMS_ITS | Encounter Summary ---
Author Organization [facility] Address [address] [place] [address]. [place] [address] Care Team Providers Care Neonatal Nurse Name Role Phone None, Provider Primary Care Provider Alisson oliva Encounter Details Date Type Department Care Team (Latest Contact Info) Description 12/19/2020 Travel Social History Tobacco Use Types Packs/Day [...] on filedocumented in this encounter Care Teams Neonatal Nurse Relationship Specialty Start Date End Date None, Provider, PCP - General 12/31/19 documented as of this encounter
--- OUTSIDE RECORDS SUMMARY | 2024-09-10 03:48 | XMS_ITS | Encounter Summary ---
Author Organization [facility] Address [address] [place] [address]. [place] [address] Care Team Providers Care Furnace Mason Name Role Phone None, Provider Primary Care Provider Alisson oliva Encounter Details Date Type Department Care Team (Latest Contact Info) Description 07/19/2018 Scan [facility] , Generic Conversion, Social History Tobacco Use Types Packs/Day Years [...] on filedocumented in this encounter Care Teams Furnace Mason Relationship Specialty Start Date End Date None, ProviderMD PCP - General 06/03/18 08/24/19 documented as of this encounter
--- OUTSIDE RECORDS SUMMARY | 2024-09-10 03:49 | XMS_ITS | Encounter Summary ---
Author Organization [facility] Address [address] [place] [address]. [place], [place] [id number] [place] [address] Care Team Providers Care Hoop Punch And Coiler Operator Name Role Phone Md Generic Conversion Primary Care Provider Unavailable Md Generic Conversion Primary Care Provider Unavailable Md Generic Conversion Primary Care Provider Unavailable Md Generic Conversion Primary Care Provider Unavailable Md Generic Conversion Primary Care Provider Unavailable Md Generic Conversion Primary Care Provider Unavailable Md Generic Conversion Primary Care Provider Unavailable Md Generic Conversion Primary Care Provider Unavailable Md Generic Conversion Primary Care Provider Unavailable Md Generic Conversion Primary Care Provider Unavailable Md Generic Conversion MD Primary Care Provider Unavailable Encounter Details Date Type Department Care Team (Late st Contact Info) Description 12/11/2014 Emergency [facility] [place] [address] Jasmin Carr MD [address] [place] [address] Social History Tobacco Use Types Packs/Day Years Used Date Smoking Tobacco: Never Assessed Sex and Gender Information Value Date Recorded Sex Assigned at Not on file Legal Sex Male 10:39 PM CDT Gender Identity Not on file Sexual Orientation Not on file documented as of this encounter Plan of Treatment Not on file documented as of this encounter Visit Diagnoses Diagnosis Abdominal pain, left lower quadrant documented in this encounter Care Teams Hoop Punch And Coiler Operator Relationship Specialty Start Date End Date Alina Christensen MD PCP - General 02/20/17 Alina Christensen MD PCP - General 10/11/16 7 Alina Christensen MD PCP - General 07/19/16 Alina Christensen MD PCP - General 05/06/16 Md, Generic Conversion, MD PCP - General 01/23/16 Md, Generic Conversion, MD PCP - General 11/27/15 Md, Generic Conversion, MD PCP - General 11/13/15 Md, Generic Conversion, MD PCP - General 09/20/15 6 Md, Generic Conversion, MD PCP - General 09/10/15 6 Md, Generic Conversion, MD PCP - General 02/14/1509/09 Md, Generic Conversion, MD PCP - General 12/11/14 5 documented as of this encounter
--- OUTSIDE RECORDS SUMMARY | 2024-09-10 03:49 | XMS_ITS | Encounter Summary ---
Author Organization [facility] Address [facility]. [place], [place] [id number] [place], [place] [id number] Care Team Providers Care Pharmaceutical Detailer Name Role Phone Md Generic Conversion Primary Care Provider Unavailable Md, Generic Conversion MD Primary Care Provider Unavailable Md, Generic Conversion MD Primary Care Provider Unavailable Md, Generic Conversion MD Primary Care Provider Unavailable Md, Generic Conversion MD Primary Care Provider Unavailable Md, Generic Conversion MD Primary Care Provider Unavailable Md, Generic Conversion MD Primary Care Provider Unavailable Md, Generic Conversion MD Primary Care Provider Unavailable Md, Generic Conversion MD Primary Care Provider Unavailable Md, Generic Conversion MD Primary Care Provider Unavailable Md, Generic Conversion MD Primary Care Provider Unavailable Md, Generic Conversion MD Primary Care Provider Unavailable Md, Generic Conversion MD Primary Care Provider Unavailable Md, Generic Conversion Primary Care Provider Unavailable Balta Costello MD Primary Care Provider Unavaila ble Encounter Details Date Type Department Care Team (Late st Contact Info) Description 03/27/2014 Abstract [facility] Family Medicine - [place] [address], [address] [place] [address] Balta Costello MD [address] [place] [address] Social History Tobacco Use Types Packs/Day Years Used Date Smoking Tobacco: Never Assessed Sex and Gender Information Value Date Recorded Sex Assigned at Not on file Legal Sex Male 10:39 PM CDT Gender Identity Not on file Sexual Orientation Not on file documented as of this encounter Progress Notes * Generic Conversion MD Fermin - 03/27/2014 7:01 PM CDT Note Note: Called patient to discuss blood sugars and his concerns: he reports blood sugars ranging at 75 at lowest, to as high as 225! he also reports that with repeat checking over the course of the day, the levels can drop over 100 points! He gets symptomatic withsweats, abnormal cold sensations like he's sweating on his legs (though he does not note any sweat). He is very concerned about this given he has these symptoms and his sugars are fluctuating so frequently! Currently he is only on Januvia 50 mg daily (down from 100). he was not able to tolerate metformin in the past due to some abnormal s/e (muscle cramping). Discussed that when I am not sure why his blood sugars are fluctuating so much, albeit that I usually do not have patient's who are on oral medications (such as he is on) check but once a day - maybeit is reasonable to get him over to a specialist (security expert) who may be able to further help him. Provided the number to Dr. Stephanie Mcdowell in [place] for him to contact tomorrow to see if she will take mosquera pay patients. he seemed to acknowledge/agree. Through the course of the conversation he also noted that he thinks that he is making progress in his anxiety (on celexa 40 mg daily and wellbutrin 75 mg BID (IR). His BP is controlled on lisinopril 10 mg daily (he purchased a BP cuff and recently it read as controlled. He still has issues with hiseye and has to go back to the android developer. He still has nasal congestion for which he is now taking cipro given at last visit. he thinks the nasonex (sample) will help his polyps (nasal). Overallhe notes that he is making progress! Discussed with the patient also his frequent calling of the staff, and how it has now been hindering our ability to provide care to all our patients. discussed with the patient the following plan: 1. he may call once a day (discussed sometime maybe around 1-2 PM) 2. he is to provide the staff with a list of questions (bullet points, concise) for them to convey to the physician. 3. if it's an emergency they deem dire, they will let me know and I will get an answer back within several hours. 4. Otherwise expect a call from staff once I see the questions within 24 hours. 5. If he continues to persist in the frequent phone calls, then we can no longer provide care for him. He seemed to acknowledged. he wants to maintain this medical relationship and states he will lay off the staff and control panel operator crude unit physician. he does not have to call every day. he apologizes to the staff. acknowledged. I re-iterated the above instructions 1-4 several times to him over the course of the conversation. finally, discussed per patient request when he should go to the ER: Blood sugars <60 and he is symptomatic and not improved with food/drink Blood sugars consistently >250-300 over at least several checks if not 24 hrs (as he has had some significant fluctuations). pt acknowledged. he will call tomorrow to let us know if he has gotten in to Dr. Mcdowell or if we can help him find another security expert. acknowledged. mlee Message Recorded as Task Date: 03/26/2014 03:36 PM, Created By: Dilshad Martinez Task Name: Follow Up Assigned To: Balta Costello Regarding Patient: Carlos Mcgee, Status: Active Comment: Dilshad Martinez - 26 Mar 2014 3:36 PM TASK CREATED Caller: Self; General Medical Question; pt would like you to call him,his sugar is too high Signatures Electronically signed by : Balta Costello M.D.; Mar 27 2014 7:18PM CAUSTIC LIQUOR MAKER (Author) documented in this encounter Plan of Treatment Not on file documented as of this encounter Visit Diagnoses Not on filedocumented in this encounter Care Teams Pharmaceutical Detailer Relationship Specialty Start Date End Date Md Generic Conversion, PCP - General 02/20/17 Md Generic Conversion, PCP - General 10/11/16 7 Md Generic Conversion, PCP - General 07/19/16 Md Generic Conversion, PCP - General 05/06/16 Md Generic Conversion, PCP - General 01/23/16 Md Generic Conversion, PCP - General 11/27/15 Md Generic Conversion, PCP - General 11/13/15 Md Generic Conversion, PCP - General 09/20/15 6 Md Generic Conversion, PCP - General 09/10/15 6 Md, Generic Conversion, MD PCP - General 02/14/1509/09 Md, Generic Conversion, MD PCP - General 12/11/14 5 , Generic Conversion, MD PCP - General 09/10/14 , Generic Conversion, MD PCP - General 07/30/1409/09 , Generic Conversion, MD PCP - General 06/09/1407/29 Balta Costello, PCP - General 02/02/14 06/08/14 documented as of this encounter
--- OUTSIDE RECORDS SUMMARY | 2024-09-10 03:49 | XMS_ITS | Encounter Summary ---
Author Organization [facility] Address [facility]. [place] [id number] [place] [address] Care Team Providers Care Ring Striker Name Role Phone Md Generic Conversion Primary Care Provider Unavailable Md Generic Conversion Primary Care Provider Unavailable Md Generic Conversion Primary Care Provider Unavailable Md Generic Conversion Primary Care Provider Unavailable Md Generic Conversion Primary Care Provider Unavailable Md Generic Conversion Primary Care Provider Unavailable Md Generic Conversion Primary Care Provider Unavailable Md Generic Conversion Primary Care Provider Unavailable Encounter Details Date Type Department Care Team (Latest Contact Info) Description 09/26/2015 [facility] Social History Tobacco Use Types Packs/Day Years Used Date Smoking Tobacco: Never Assessed Sex and Gender Information Value Date Recorded Sex Assigned at Not on file Legal Sex Male 10:39 PM CDT Gender Identity Not on file Sexual Orientation Not on file documented as of this encounter Progress Notes * Diana Caceres NP - 09/26/2015 2:10 PM CST Message Recorded as Task Date: 09/26/2015 01:20 PM, Created By: Lucretia Busby Task Name: Medical Complaint Callback Assigned To: [facility]-Nursing Team Regarding Patient: Carlos Mcgee, Status: Active Comment: Lucretia Busby - 26 Sep 2015 1:20 PM TASK CREATED Caller: Self; Medical Complaint; Patient states he was given HCTZ yesterday and now has a rash. He is allergic to sulfa and would like something else called in and wants to talk to the nurse first. Requests it be called to [facility] Message: Spoke to pt, he said that he took the HCTZ yesterday and started with a rash all over his arm, stomach, and back. He is itching like crazy. Advised him to stop the HCTZ and take Benadryl. Then he said that he spoke to the on-call doctor last night and he told him the same thing. He said that he is allergic to Sulfa but was given HCTZ, which has sulfa in it. Pt stopped HCTZ. f/u for BP Explained that the risk of having a reaction is a small percent. He said that is not true because he has a bad rash all over. I tried explaining what I meant again, but didn't let me finish explaining. He said that he doesn't trust Diana because she obviously didn't look at his records and see his Sulfa allergy. I explained that our computer system would give us an alert if there were interactions, allergy problems, etc. As well as the pharmacies computer system. I did tell him that the pharmacysystem obviously didn't catch this either. He said that he will not be going back to that pharmacy again either. He said that he is going to find a new doctor because we didn't take the time with him, she was probably worried about what was for lunch, or her car payment, or something else besides him. Explainedthat is not the case at all, but I would be sure to let her know that he is going to find a new doctor since he was not happy with his care here. He again said that he would never be coming back and h demetrio up. I flagged patients chart indicating this. /tjt Signatures Electronically signed by : Diana Caceres NP; Sep 27 2015 7:22AM PIPE SETTER (Author) documented in this encounter Plan of Treatment Not on file documented as of this encounter Visit Diagnoses Not on filedocumented in this encounter Care Teams Ring Striker Relationship Specialty Start Date End Date Md Generic ConversionMD PCP - General 02/20/17 Md Generic Conversion, PCP - General 10/11/16 7 Md Generic ConversionMD PCP - General 07/19/16 Md Generic ConversionMD PCP - General 05/06/16 Md Generic ConversionMD PCP - General 01/23/16 Md Generic ConversionMD PCP - General 11/27/15 Md, Generic Conversion, MD PCP - General 11/13/15 , Generic Conversion, PCP - General 09/20/15 6 documented as of this encounter
--- OUTSIDE RECORDS SUMMARY | 2024-09-10 03:49 | XMS_ITS | Encounter Summary ---
Author Organization [facility] Address [address] [place] [address]. [place] [id number] [place], [place] [id number] Care Team Providers Care Caustic Mixer Name Role Phone Md, Generic Conversion Primary Care Provider Unavailable Reason for Referral * (Emergency) - Closed Specialty Diagnoses / Procedures Referred By Redd mobley Referred To Contact Procedures CT HEAD WO CON Maine Sanchez APNP Referral ID Status Reason Start Date Expiration Date Visits Re quested Visits Authorized [id number] Closed 11/13/2017 12/14/2018 1 1 [employer] Reason for Visit * Reason Comments Other Encounter Details Date Type Department Care Team (Late st Contact Info) Description 11/13/2017 5:00 PM [employer] - 11/13/2017 7:26 PM [employer] Emergency [facility] [place] [address] Maine Sanchez APNP Other Discharge Disposition: Home or Self Care (Routine [...] Sign Reading Time Taken Comments Blood Pressure 159/95 11/13/2017 5:02 PM [employer] Pulse 70 11/13/2017 7:07 PM [employer] Temperature 36.6 ??C (97.9 ??F) 11/13/2017 5:02 PM CS T Respiratory Rate 18 11/13/2017 7:07 PM [employer] Oxygen Saturation 98% 11/13/2017 7:07 PM [employer] Inhaled Oxygen Concentration - - Weight - - Height - - Body Mass Index - - documented in this encounter Discharge Instructions * Discharge Instructions* JANE Meza - 11/13/2017 7:11 PM [employer] Images from the original note were not included. Patient Education Anxiety Discharge Instructions, Adult About this topic Anxiety is a feeling of worry or fear over something. You may feel on edge or tense. It is a normalresponse to stress or new situations. Anxiety becomes a problem when it lasts for a long time, is very strong, or keeps you from doing the normal things you do. Anxiety may affect your family, friends, work, or school life. You may have problems with sleeping, eating, or any part of your health. Ifit becomes an illness that lasts a long time, anxiety needs treatment. Anxiety happens in many forms, like: ?? Being scared all the time that something bad is going to happen. This is general anxiety. ?? Strong bursts of fear where your body has signs that may feel like a heart attack. This is called a panic attack. ?? Upsetting thoughts that happen often. There is a need to repeat doing certain things to help getrid of the anxiety caused by these thoughts. The thoughts or actions may be about checking on things, touching things, or worry about germs. This is an obsessive-compulsive disorder. ?? Strong fear of an object, place, or condition. This is a phobia. ?? Fear of others thinking bad things about you or being put down by other people. This is social anxiety. ?? Nightmares, flashbacks, staying away from people, or having panic attacks when reminded of a shocking or hurtful time or place. This is post-traumatic stress. Anxiety disorder may be treated in many ways. Some kinds of treatment have you talk about your beliefs, fears, and worries. You may learn how certain thoughts or feelings can raise anxiety. You may also learn what steps to take to lower anxiety. Other kinds of treatment may have you look back on a hurtful event, sad memory, or something you are afraid of. The doctor will help you deal with the feelings that you may have. You may learn ways to cope with unwanted events or thoughts by looking at your fears in a safe place. What care is needed at home? ?? Ask your doctor what you need to do when you go home. Make sure you ask questions if you do not understand what the doctor says. This way you will know what you need to do. ?? Talk with family and friends about your anxiety and how to help. ?? Your doctor may suggest therapy. This is important to help you learn more about your anxiety. You may also learn ways to cope with your feelings. ?? Your doctor may suggest you join support groups. You may get to know other people who have copedwith anxiety. What follow-up care is needed? Your doctor may ask you to make visits to the office to check on your progress. Be sure to keep these visits. What drugs may be needed? The doctor may order drugs to help the physical signs of anxiety. Will physical activity be limited? You may take part in physical activities. Some people are limited because of their anxiety or fear.Talk with your doctor about the right amount of activity for you. What changes to diet are needed? Eat a variety of healthy foods and limit drinks with caffeine. You should avoid alcohol, energy drinks, and ykra-zln-vsqnpxg stimulants. What problems could happen? If your anxiety is not treated, it can result in: ?? Staying away from work or social events ?? Not being able to do everyday tasks ?? Keeping away from family and friends What can be done to prevent this health problem? ?? Learn to manage stress. Use relaxation methods like reflection, deep breathing, and muscle relaxation. Things like yoga and ramila chi are also good. ?? Learn what events, people, or things upset you. Limit your contact with them. ?? Talk about your feelings. Talk to someone who can help you see how your thoughts at certain times may raise your anxiety. ?? Seek support from your friends and family. Find someone who calms you down. Ask if you can call them when you are getting anxious. When do I need to call the doctor? ?? Hard to breathe, even if you are at rest ?? Chest pain ?? If you do not feel safe or you cannot be alone Teach Back: Helping You Understand The Teach Back Method helps you understand the information we are giving you. The idea is simple. After talking with the staff, tell them in your own words what you were just told. This helps to makesure the staff has covered each thing clearly. It also helps to explain things that may have been abit confusing. Before going home, make sure you are able to do these: ?? I can tell you about my condition and the drugs I need to take. ?? I can tell you what may help lower my anxiety. ?? I can tell you what I will do if it is hard to breathe or I have chest pain. ?? I can tell you what I will do if I do not feel safe or cannot be alone. Where can I learn more? Anxiety Disorders Association of [place] http://www.adaa.org/wlerbz-zgmw-afczrje/managing-anxiety National [place] of Health ? Senior Health http://nihseniorhealth.gov/anxietydisorders/aboutanxietydisorders/01.html National Stanton of Mental Health http://www.nimh.nih.gov/health/publications/anxiety-disorders/complete-index.sht ml Last Reviewed Date 2015-07-19 Consumer Information Use and Disclaimer This information is not specific medical advice and does not replace information you receive from your health care provider. This is only a brief summary of general information. It does NOT include all information about conditions, illnesses, injuries, tests, procedures, treatments, therapies, discharge instructions or life-style choices that may apply to you. You must talk with your health care provider for complete information about your health and treatment options. This information should not be used to decide whether or not to accept your health care provider???s advice, instructions or recommendations. Only your health care provider has the knowledge and training to provide advice that is right for you. Copyright Copyright ?? 2018 [employer] and its affiliates and/or licensors. All rights reserved. [employer] documented in this encounter Medications at Time of Discharge albuterol sulfate HFA 108 (90 BASE) MCG/ACT inhaler Inhale 2 puffs into the lungs every 6 (six) hours as needed for Wheezing. 12/12/2018 albuterol sulfate HFA 108 (90 BASE) MCG/ACT inhaler Inhale 2 puffs into the lungs every 6 (six) hours as needed. 1 Inhaler 10/09/2017 12/28/2017 alprazolam 2 MG tablet Take 2 mg by mouth 4 (four) times daily as needed. 11/30/2019 atenolol 100 MG tablet Take 100 mg by mouth daily. 12/12/2018 escitalopram 20 MG tablet Take 40 mg by mouth daily. 09/19/2018 fluticasone propionate 50 MCG/ACT nasal spray 1 spray by Nasal route daily. 12/12/2018 documented as of this encounter ED Notes * JANE Meza - 11/13/2017 5:53 PM CST Images from the original note were not included. Chief Complaint Chief Complaint Patient presents with ??? Other History of Present Illness HPI Comments: Pt. Presents independently to the ER with multiple complaints. He states he has been seen at other hospitals as well with generalized weakness, and pain in his legs, arms and every joint for the past couple of weeks. He states the pain is so bad at times that he cannot stand up. He reports feeling dizzy and confused at times even though his family member who accompanies him does notagree that he shows any symptoms of confusion to her at any time. He also reports feeling intermittently light headed, dizzy, and very anxious. He shows me some lab work that he states proves he is low on his iron and has been placed on Ferrous Sulfate for. The labs that he presents are from [facility] a couple of weeks ago and states that his Hgb is 12.6. The pt. Also sees a psychiatrist and states that he has had to call them about his anxiety and have his Xanax dose increased. He denies any acute injuries including falls or trauma, but states that he has intermittent paresthesias to his hands and his feet intermittently. As he was walking back to room number 17, he states his cheststarted hurting midsternally, but that has now resolved. That pain did not radiate and he has no associated nausea, vomiting, or any fevers and no sweating. He denies any recent illnesses. No SOB, GIor complaints and no cough or recent cold symptoms. He is constantly talking about different things and changing his ideas and focusing on his anxiety. Medical History ALLERGIES: Allergies Allergen Reactions ??? Pepcid [Famotidine] Shortness of Breath ??? Bactrim [Sulfamethoxazole-Trimethoprim] Hives ??? Contrast [Iodine] Hives ??? Keflex [Cephalexin] Hives ??? Levofloxacin Unknown ??? Oxycodone Hives ??? Zithromax [Azithromycin] Hives ??? Paxil [Paroxetine] Anxiety MEDICATIONS: Prior to Admission medications Medication Sig Start Date End Date Taking? Authorizing Provider albuterol sulfate HFA 108 (90 BASE) MCG/ACT inhaler Inhale 2 puffs into the lungs every 6 (six) hours as needed for Wheezing. Doc Abstract albuterol sulfate HFA 108 (90 BASE) MCG/ACT inhaler Inhale 2 puffs into the lungs every 6 (six) hours as needed. 10/09/17 10/09/18 JANE Wilson alprazolam 2 MG tablet Take 2 mg by mouth nightly as needed. Doc Abstract atenolol 100 MG tablet Take 100 mg by mouth daily. Doc Abstract escitalopram 20 MG tablet Take 20 mg by mouth daily. Doc Abstract fluticasone propionate 50 MCG/ACT nasal spray 1 spray by Nasal route daily. Doc Abstract PAST MEDICAL HISTORY: Past Medical History: Diagnosis Date ??? Anxiety ??? Depressed ??? Diabetes mellitus ??? Hypertension PAST SURGICAL HISTORY: Past Surgical History: Procedure Laterality Date ??? CHOLECYSTECTOMY FAMILY HISTORY: No family history on file. SOCIAL HISTORY: Social History Substance Use Topics ??? Smoking status: Never Smoker ??? Smokeless tobacco: Never Used ??? Alcohol use No Review of Systems Review of Systems Musculoskeletal: Positive for arthralgias. All other systems reviewed and are negative. Physical Exam Filed Vitals: 11/13/17 1702 11/13/17 1907 BP: (!) 159/95 Pulse: 70 70 Resp: 20 18 Temp: 97.9 ??F (36.6 ??C) TempSrc: Oral SpO2: 96% 98% Physical Exam Constitutional: He is oriented to person, place, and time. Vital signs are normal. He appears well-developed and well-nourished. Non-toxic appearance. He does not have a sickly appearance. He does not appear ill. No distress. He is not intubated. HENT: Head: Normocephalic and atraumatic. Right Ear: Hearing, tympanic membrane, external ear and ear canal normal. Left Ear: Hearing, tympanic membrane, external ear and ear canal normal. Nose: Nose normal. No mucosal edema, rhinorrhea, nose lacerations, sinus tenderness, nasal deformity, septal deviation or nasal septal hematoma. No epistaxis. No foreign bodies. Right sinus exhibits no maxillary sinus tenderness and no frontal sinus tenderness. Left sinus exhibits no maxillary sinus tenderness and no frontal sinus tenderness. Mouth/Throat: Oropharynx is clear and moist and mucous membranes are normal. Mucous membranes are not pale, not dry and not cyanotic. No oropharyngeal exudate, posterior oropharyngeal edema, posterior oropharyngeal erythema or tonsillar abscesses. Eyes: Conjunctivae, EOM and lids are normal. Pupils are equal, round, and reactive to light. Right eye exhibits no discharge. Left eye exhibits no discharge. No scleral icterus. Neck: Trachea normal, normal range of motion and full passive range of motion without pain. Neck supple. Normal carotid pulses, no hepatojugular reflux and no JVD present. Carotid bruit is not present. No tracheal deviation present. No thyroid mass and no thyromegaly present. Cardiovascular: Normal rate, regular rhythm, S1 normal, S2 normal, normal heart sounds, intact distal pulses and normal pulses. PMI is not displaced. Exam reveals no gallop and no friction rub. No murmur heard. Pulses: Carotid pulses are 2+ on the right side, and 2+ on the left side. Radial pulses are 2+ on the right side, and 2+ on the left side. Femoral pulses are 2+ on the right side, and 2+ on the left side. Popliteal pulses are 2+ on the right side, and 2+ on the left side. Dorsalis pedis pulses are 2+ on the right side, and 2+ on the left side. Posterior tibial pulses are 2+ on the right side, and 2+ on the left side. Pulmonary/Chest: Effort normal and breath sounds normal. No accessory muscle usage or stridor. No apnea, no tachypnea and no bradypnea. He is not intubated. No respiratory distress. He has no decreased breath sounds. He has no wheezes. He has no rhonchi. He has no rales. He exhibits no tenderness. Abdominal: Soft. Normal appearance and bowel sounds are normal. He exhibits no shifting dullness, no distension, no pulsatile liver, no fluid wave, no abdominal bruit, no ascites, no pulsatile midline mass and no mass. There is no hepatosplenomegaly or splenomegaly. There is no tenderness. There isno rebound, no guarding and no CVA tenderness. No hernia. Hernia confirmed negative in the ventral area, confirmed negative in the right inguinal area and confirmed negative in the left inguinal area. Musculoskeletal: Normal range of motion. He exhibits no edema, tenderness or deformity. Lymphadenopathy: He has no cervical adenopathy. He has no axillary adenopathy. Neurological: He is alert and oriented to person, place, and time. He has normal reflexes. He displays no atrophy and no tremor. No cranial nerve deficit or sensory deficit. He exhibits normal muscletone. He displays no seizure activity. Coordination and gait normal. GCS eye subscore is 4. GCS verbal subscore is 5. GCS motor subscore is 6. Skin: Skin is warm, dry and intact. No abrasion, no bruising, no burn, no ecchymosis, no laceration, no lesion, no petechiae, no purpura and no rash noted. Rash is not macular, not papular, not maculopapular, not nodular, not pustular, not vesicular and not urticarial. He is not diaphoretic. No cyanosis or erythema. No pallor. Nails show no clubbing. Psychiatric: He has a normal mood and affect. His speech is normal and behavior is normal. Judgmentand thought content normal. Cognition and memory are normal. Nursing note and vitals reviewed. Diagnostic Studies / Procedures ELECTROCARDIOGRAMS: Results for orders placed or performed during the hospital encounter of 11/13/17 [address] 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 [address] [place] [address] Test Date: 2017-11-13 Pat Name: CARLOS KELLY Department: 41 Room: [id number] Gender: Male Console Operator: PHOEBE : 1970 Requested By: MAINE SANCHEZ Order Number: [id number] Reading MD: Swathi Brannon Measurements Intervals [place] Rate: 64 P: 27 WY: 157 QRS: 23 QRSD: 98 T: 9 QT: 383 QTc: 396 Interpretive Statements SINUS RHYTHM Compared to ECG 11/13/2017 17:08:45 No significant changes [employer] LABORATORY STUDIES: Results for orders placed or performed during the hospital encounter of 11/13/17 CBC W/DIFF AUTOMATED Result Value Ref Range WBC 5.2 4.8 - 10.8 x10'3/uL RBC 5.99 4.70 - 6.10 x10'6/uL HGB 12.5 (L) 14.0 - 18.0 G/DL HCT 42.4 (L) 43.0 - 54.0 % MCV 70.8 (L) 80.0 - 94.0 FL MCH 20.9 (L) 27.0 - 31.0 PG MCHC 29.5 (L) 32.0 - 36.0 G/DL RDW 20.6 (H) 11.5 - 14.5 % PLT 193 130 - 400 x10'3/uL MPV 9.1 (L) 9.3 - 12.2 FL BASOPHILS 0.8 0.0 - 1.0 % EOSINOPHILS 2.9 1.0 - 3.0 % NEUTROPHILS 52.9 43.0 - 65.0 % LYMPHOCYTES 35.5 20.0 - 46.0 % MONOCYTES 7.7 5.0 - 12.0 % IMMATURE GRANS 0.2 0.0 - 1.0 % RBC MORPHOLOGY SLIDE REVIEWED PATHOLOGIST COMMENT PATHOLOGIST REVIEW TO FOLLOW. COMPREHENSIVE METABOLIC PANEL Result Value Ref Range GLUCOSE 90 70 - 99 MG/DL BUN 6 (L) 7 - 18 MG/DL CREATININE 1.10 0.7 - 1.3 MG/DL SODIUM 144 136 - 145 MMOL/L POTASSIUM 3.7 3.5 - 5.1 MMOL/L CHLORIDE 109 (H) 100 - 108 MMOL/L CO2 29.5 21 - 32 MMOL/L CALCIUM 9.0 8.5 - 10.1 MG/DL TOTAL BILIRUBIN 1.0 0.2 - 1.2 MG/DL TOTAL PROTEIN 7.8 6.4 - 8.2 G/DL ALBUMIN 4.0 3.4 - 5.0 G/DL AST 33 15 - 37 U/L ALT 34 16 - 60 U/L ALK PHOS 62 50 - 136 U/L ANION GAP 9.2 8 - 20 MMOL/L BUN CREATININE RATIO 5.5 (L) 6 - 26 A/G RATIO 1.1 1.0 - 2.0 RATIO eGFR Non-Afr. Amer. >60 >60 ML/MIN/1.73 M2 eGFR Afr. Amer. >60 >60 ML/MIN/1.73 M2 PROTIME/INR, VENOUS Result Value Ref Range Protime 12.5 (H) 9.6 - 12.2 SEC INR 1.1 SED RATE, ERYTHROCYTE (ESR) Result Value Ref Range ESR 10 0 - 15 mm/hr LACTIC ACID Result Value Ref Range LACTIC ACID 0.9 0.4 - 2.0 MMOL/L MAGNESIUM Result Value Ref Range MAGNESIUM 2.0 1.8 - 2.4 MG/DL TSH W/REFLEX Result Value Ref Range TSH 1.330 0.358 - 3.74 uIU/ML URINALYSIS Result Value Ref Range Specimen Type URINE CLEAN CATCH COLOR YELLOW TRANSPARENCY CLEAR Specific Bertha (U) 1.014 1.001 - 1.030 U PH 7.0 5.0 - 9.0 LEUKOCYTES NEGATIVE NEGATIVE NITRITES NEGATIVE NEGATIVE PROTEIN, URINE NEGATIVE <30 MG/DL URINE GLUCOSE NEGATIVE NEGATIVE MG/DL U KETONES NEGATIVE NEGATIVE MG/DL UROBILINOGEN 4.0 (A) NEGATIVE MG/DL Urine Bilirubin NEGATIVE NEGATIVE MG/DL BLOOD NEGATIVE NEGATIVE CULTURE & SENSITIVITY INDICATED? CULTURE IS NOT INDICATED IMAGING STUDIES XR CHEST PA+LAT Final Result by User, [id number] (11/13 1808) Examination: Chest x-ray 2 view Exam Date/Time: 11/13/2017 5:49 PM Reason For Exam: Chest pain Weakness, dizziness, chest pain Comparison: 10/09/2017 chest radiographs Technique: PA and lateral views of the chest were obtained. Findings: Heart size stable from prior study. Pulmonary vasculature within normal. There is no large pleural effusion or pneumothorax. No focal infiltrate or consolidation. ======== IMPRESSION: ======== 1. No acute cardiopulmonary findings. HEAD WO CON Final Result by User, [id number] (11/13 5561) EXAMINATION: CT of the head EXAM DATE/TIME: 11/13/2017 5:54 PM REASON FOR EXAM: Dizziness Weakness, cramping, dizziness, chest pain COMPARISON: 02/20/[address] TECHNIQUE: Axial CT images of the brain are obtained from skull base through vertex without the use of IV contrast agent. Automated exposure control was utilized for dose reduction. FINDINGS: No acute hemorrhage or large territory infarct. Ventricles are normal in size and symmetric. There are no extra-axial fluid collections. There is no mass, mass effect, or midline shift. There is no depressed skull fracture. Visualized paranasal sinuses and mastoid air cells are clear. Visualized orbital contents are unremarkable. ===== IMPRESSION: ===== 1. No acute intracranial abnormalities. Course / Medical Decision Making MDM Number of Diagnoses or Management Options Amount and/or Complexity of Data Reviewed Clinical lab tests: ordered and reviewed Tests in the radiology section of CPT??: ordered and reviewed Risk of Complications, Morbidity, and/or Mortality Presenting problems: low Diagnostic procedures: low Management options: low Patient Progress Patient progress: stable Clinical Impression Anxiety about health (Primary) Disposition: Discharge Discharge Instruction 11/13/2017 Carlos Kelly Problem Date Reviewed: 10/09/2017 None Allergies as of 11/13/2017 Reactions Pepcid [Famotidine] Shortness of Breath Bactrim [Sulfamethoxazole-trimethoprim] Hives Contrast [Iodine] Hives Keflex [Cephalexin] Hives Levofloxacin Unknown Oxycodone Hives Zithromax [Azithromycin] Hives Paxil [Paroxetine] Anxiety Follow-up Information Schedule an appointment as soon as possible for a visit with YRIS WILDE MD. Specialty: FAMILY PRACTICE Contact information: [address] [facility] [address] [place] [address] Home Medication List CONTINUE taking these medications Details * albuterol sulfate HFA 108 (90 BASE) MCG/ACT inhaler Inhale 2 puffs into the lungs every 6 (six) hours as needed. * albuterol sulfate HFA 108 (90 BASE) MCG/ACT inhaler Inhale 2 puffs into the lungs every 6 (six) hours as needed for Wheezing. alprazolam 2 MG tablet Commonly known as: XANAX Take 2 mg by mouth nightly as needed. atenolol 100 MG tablet Commonly known as: TENORMIN Take 100 mg by mouth daily. escitalopram 20 MG tablet Commonly known as: LEXAPRO Take 20 mg by mouth daily. fluticasone propionate 50 MCG/ACT nasal spray Commonly known as: FLONASE 1 spray by Nasal route daily. * Notice: This list has 2 medication(s) that are the same as other medications prescribed for you. Read the directions carefully, and ask your doctor or other care provider to review them with you. Additional Information IF YOU ARE A SMOKER OR HAVE SMOKED IN THE LAST 12 MONTHS, WE ENCOURAGE YOU TO EXPLORE OPTIONS FOR QUITTING. For Stroke Patients: I understand ?? That by carefully controlling and monitoring any of the risk factors listed, I can decrease my risk of future stroke: ??? High Blood Pressure (hypertension) ??? High Blood Cholesterol (hyperlipidemia) ??? Diabetes ??? Smoking ??? Alcohol Abuse ??? Drug Abuse ?? Follow up care with a medical professional is extremely important. Information on who and when to follow up is included in the Follow-up Information section of this document. ?? Proper use of medication to treat your symptoms and prevent future complications is extremely important. Your current prescribed medications are listed in the Home Medication List included in thisdocument. If you have any questions on them, please contact your primary care provider. Stroke warning signs and symptoms that require a 911 call (or activation of the Emergency Medical System): ??? Sudden numbness or weakness of the face, arm or leg, especially on one side of the body. ??? Sudden confusion, trouble speaking or understanding ??? Sudden trouble seeing in one or both eyes ??? Sudden trouble walking, dizziness, loss of balance or coordination. ??? Sudden severe headache with no known cause Patient has been given a copy of written discharge instructions. Thank you for choosing us for your healthcare needs! [employer] is the online tool that empowers you with secure access to your health care information and the ability to communicate with your doctor from any computer, 24 hours a day. If you are not signed up, please go to Parental Health, click on the Activate Account button. Enter your social security number, date of and the following code: [email or web address] Expires: 01/07/2018 7:53 PM Home Medication List TAKE these medications AM Lunch PM Bedtime * albuterol sulfate HFA 108 (90 BASE) MCG/ACT inhaler Inhale 2 puffs into the lungs every 6 (six) hours as needed. * albuterol sulfate HFA 108 (90 BASE) MCG/ACT inhaler Inhale 2 puffs into the lungs every 6 (six) hours as needed for Wheezing. alprazolam 2 MG tablet Commonly known as: XANAX Take 2 mg by mouth nightly as needed. atenolol 100 MG tablet Commonly known as: TENORMIN Take 100 mg by mouth daily. escitalopram 20 MG tablet Commonly known as: LEXAPRO Take 20 mg by mouth daily. fluticasone propionate 50 MCG/ACT nasal spray Commonly known as: FLONASE 1 spray by Nasal route daily. * Notice: This list has 2 medication(s) that are the same as other medications prescribed for you. Read the directions carefully, and ask your doctor or other care provider to review them with you. Patient Instructions Patient Education Anxiety Discharge Instructions, Adult About this topic Anxiety is a feeling of worry or fear over something. You may feel on edge or tense. It is a normalresponse to stress or new situations. Anxiety becomes a problem when it lasts for a long time, is very strong, or keeps you from doing the normal things you do. Anxiety may affect your family, friends, work, or school life. You may have problems with sleeping, eating, or any part of your health. Ifit becomes an illness that lasts a long time, anxiety needs treatment. Anxiety happens in many forms, like: ?? Being scared all the time that something bad is going to happen. This is general anxiety. ?? Strong bursts of fear where your body has signs that may feel like a heart attack. This is called a panic attack. ?? Upsetting thoughts that happen often. There is a need to repeat doing certain things to help getrid of the anxiety caused by these thoughts. The thoughts or actions may be about checking on things, touching things, or worry about germs. This is an obsessive-compulsive disorder. ?? Strong fear of an object, place, or condition. This is a phobia. ?? Fear of others thinking bad things about you or being put down by other people. This is social anxiety. ?? Nightmares, flashbacks, staying away from people, or having panic attacks when reminded of a shocking or hurtful time or place. This is post-traumatic stress. Anxiety disorder may be treated in many ways. Some kinds of treatment have you talk about your beliefs, fears, and worries. You may learn how certain thoughts or feelings can raise anxiety. You may also learn what steps to take to lower anxiety. Other kinds of treatment may have you look back on a hurtful event, sad memory, or something you are afraid of. The doctor will help you deal with the feelings that you may have. You may learn ways to cope with unwanted events or thoughts by looking at your fears in a safe place. What care is needed at home? ?? Ask your doctor what you need to do when you go home. Make sure you ask questions if you do not understand what the doctor says. This way you will know what you need to do. ?? Talk with family and friends about your anxiety and how to help. ?? Your doctor may suggest therapy. This is important to help you learn more about your anxiety. You may also learn ways to cope with your feelings. ?? Your doctor may suggest you join support groups. You may get to know other people who have copedwith anxiety. What follow-up care is needed? Your doctor may ask you to make visits to the office to check on your progress. Be sure to keep these visits. What drugs may be needed? The doctor may order drugs to help the physical signs of anxiety. Will physical activity be limited? You may take part in physical activities. Some people are limited because of their anxiety or fear.Talk with your doctor about the right amount of activity for you. What changes to diet are needed? Eat a variety of healthy foods and limit drinks with caffeine. You should avoid alcohol, energy drinks, and ntec-smi-esptbqy stimulants. What problems could happen? If your anxiety is not treated, it can result in: ?? Staying away from work or social events ?? Not being able to do everyday tasks ?? Keeping away from family and friends What can be done to prevent this health problem? ?? Learn to manage stress. Use relaxation methods like reflection, deep breathing, and muscle relaxation. Things like yoga and ramila chi are also good. ?? Learn what events, people, or things upset you. Limit your contact with them. ?? Talk about your feelings. Talk to someone who can help you see how your thoughts at certain times may raise your anxiety. ?? Seek support from your friends and family. Find someone who calms you down. Ask if you can call them when you are getting anxious. When do I need to call the doctor? ?? Hard to breathe, even if you are at rest ?? Chest pain ?? If you do not feel safe or you cannot be alone Teach Back: Helping You Understand The Teach Back Method helps you understand the information we are giving you. The idea is simple. After talking with the staff, tell them in your own words what you were just told. This helps to makesure the staff has covered each thing clearly. It also helps to explain things that may have been abit confusing. Before going home, make sure you are able to do these: ?? I can tell you about my condition and the drugs I need to take. ?? I can tell you what may help lower my anxiety. ?? I can tell you what I will do if it is hard to breathe or I have chest pain. ?? I can tell you what I will do if I do not feel safe or cannot be alone. Where can I learn more? Anxiety Disorders Association of [place] http://www.adaa.org/vowcdd-oqxg-srmnpao/managing-anxiety National [place] of Health ? Senior Health http://nihseniorhealth.gov/anxietydisorders/aboutanxietydisorders/01.html National [place] of Mental Health http://www.nimh.nih.gov/health/publications/anxiety-disorders/complete-index.sht ml Last Reviewed Date 2015-07-19 Consumer Information Use and Disclaimer This information is not specific medical advice and does not replace information you receive from your health care provider. This is only a brief summary of general information. It does NOT include all information about conditions, illnesses, injuries, tests, procedures, treatments, therapies, discharge instructions or life-style choices that may apply to you. You must talk with your health care provider for complete information about your health and treatment options. This information should not be used to decide whether or not to accept your health care provider???s advice, instructions or recommendations. Only your health care provider has the knowledge and training to provide advice that is right for you. Copyright Copyright ?? 2018 [employer]. and its affiliates and/or licensors. All rights reserved. JANE Meza 11/13/17 191 [employer] * Taya Mitchell RN - 11/13/2017 5:06 PM CST Pt ambulatory to ED-17 with several complaints. Pt states that over the last month he has had various symptoms including weakness, cramping, dizziness, and chest pain. Pt reports he was told he is anemic and placed on iron tablets. Pt states upon arrival to ED he was not having chest pain but as hewalked back to the room he began to have sternal chest pain. Denies SOB or nausea at this time. [employer] documented in this encounter Plan of Treatment Not on file documented as of this encounter Procedures Procedure Name Priority Date/Time Associated Diagnosis Comments DRUG SCREEN RAPID STAT 11/13/2017 6:3 0 PM [employer] URINALYSIS STAT 11/13/2017 6:30 PM [employer] XR CHEST PA+LAT STAT 11/13/2017 6:04 PM [employer] ECG 12-LEAD STAT 11/13/2017 6:03 PM [employer] ECG 12-LEAD STAT 11/13/2017 6:03 PM [employer] CT HEAD WO CON STAT 11/13/2017 5:57 PM [employer] TSH W/REFLEX STAT 11/13/2017 5:38 PM [employer] SED RATE, ERYTHROCYTE (ESR) STAT 11/13/2017 5:38 PM [employer] PROTHROMBIN TIME, VENOUS STAT 11/13/2017 5:38 PM [employer] COMPREHENSIVE METABOLIC PANEL STAT 11/13/2017 5:38 PM [employer] LACTIC ACID TIMED 11/13/2017 5:38 PM [employer] CBC W/DIFF AUTOMATED STAT 11/13/2017 5:38 PM [employer] MAGNESIUM STAT 11/13/2017 5:38 PM [employer] documented in this encounter Results * (ABNORMAL) DRUG SCREEN RAPID (11/13/2017 6:30 PM [employer]) AMPHETAMINE (U) NEGATIVE NEGATIVE 8 7:36 PM [employer] BARBITURATES SCREEN (U) NEGATIVE NEGATIVE 11/13/2017 7:36 PM [employer] [facility] BENZODIAZEPINES SCREEN (U) POSITIVE(A) NEGATIVE 11/13/2017 7:36 PM [employer] [facility] CANNABINOIDS SCREEN (U) NEGATIVE NEGATIVE 11/13/2017 7:36 PM [employer] [facility] COCAINE METABOLITES (U) NEGATIVE NEGATIVE 11/13/2017 7:36 PM [employer] [facility] METHADONE (U) NEGATIVE NEGATIVE 11/13/2017 7:36 PM [employer] [facility] OPIATE SCREEN (U) NEGATIVE NEGATIVE 018 7:36 PM [facility] PHENCYCLIDINE PCP (U) NEGATIVE NEGATIVE 11/13/2017 7:36 PM [facility] Comment: NOTE: RESULTS OF THIS DRUG SCREEN SHOULD BE USED FOR MEDICAL PURPOSES ONLY AND NOT FOR LEGAL OR EMPLOYMENT PURPOSES. POSITIVE RESULTS ARE NOT CONFIRMED. MEDICATIONS CONTAINING EPHEDRINE MAY CAUSE FALSE POSITIVE AMPHETAMINE CALL [phone], LAB, TO REQUEST CONFIRMATION TESTING. IF CREATININE IS <40 mg/dL. ??RECOLLECTION IS SUGGESTED. AMPHETAMINE- ?500 NG/ML BARBITURATE- ?200 NG/ML BENZODIAZEPINES- ??200 NG/ML THC- ? 50 NG/ML COCAINE- ?150 NG/ML METHADONE- ?300 NG/ML OPIATE- ? 300 MG/ML PCP- ? 25 NG/ML CREATININE (U) 270.0(H) 39 - 259 MG/DL 11/13/2017 7:36 PM [facility] Urine specimen (specimen) URINE SPECIMEN / Unknown 11/13/2017 6:30 PM [employer] [place] [facility] URINE ORDERABLES Final Re sult [facility] [address] [place] [address], * (ABNORMAL) URINALYSIS (11/13/2017 6:30 PM [employer]) SPECIMEN TYPE URINE CLEAN CATCH 11/13/2017 6:29 PM [facility] COLOR (U) YELLOW 11/13/2017 6:43 PM [facility] TRANSPARENCY CLEAR 11/13/2017 6:43 PM [facility] SPECIFIC GRAVITY (U) 1.014 1.001 - 1.030 11/13/2017 6:43 PM [facility] U PH 7.0 5.0 - 9.0 11/13/2017 6:43 PM [facility] LEUKOCYTES (U) NEGATIVE NEGATIVE 11/13/2017 6:43 PM [facility] NITRITES NEGATIVE NEGATIVE 11/13/2017 6:43 PM [facility] PROTEIN (U) NEGATIVE <30 MG/DL 11/13/2017 6:43 PM [facility] URINE GLUCOSE NEGATIVE NEGATIVE MG/DL 11/13/2017 6:43 PM [facility] KETONES MG/DL (U) NEGATIVE NEGATIVE MG/DL 11/13/2017 6:43 PM [facility] UROBILINOGEN 4.0(A) NEGATIVE MG/DL 11/13/2017 6:43 PM [facility] BILIRUBIN (U) NEGATIVE NEGATIVE MG/DL 11/13/2017 6:43 PM [facility] BLOOD (U) NEGATIVE NEGATIVE 11/13/2017 6:43 PM [facility] CULTURE & SENSITIVITY INDICATED? CULTURE IS NOT INDICATED 11/13/2017 6:43 PM [facility] URINE SPECIMEN OBTAINED BY CLEAN CATCH PROCEDURE / Unknown 11/13/2017 6:30 PM [employer] [place] AP[place]A URINE ORDERABLES Final Re sult [facility] [address] [place] [address], [place] [phone] * XR CHEST PA+LAT (11/13/2017 6:04 PM [employer]) Anatomical Region Laterality Modality Chest Fluoroscopy 11/13/2017 6:05 PM [employer] Impressions 11/13/2017 6:06 PM [employer] ======== IMPRESSION: ======== 1. ??No acute cardiopulmonary findings. Narrative 11/13/2017 6:06 PM [employer] Examination: Chest x-ray 2 view Exam Date/Time: 11/13/2017 5:49 PM Reason For Exam: ??Chest pain ? Weakness, dizziness, chest pain Comparison: 10/09/2017 chest radiographs Technique: PA and lateral views of the chest were obtained. Findings: Heart size stable from prior study. Pulmonary vasculature within normal. There is no large pleural effusion or pneumothorax. No focal infiltrate or consolidation. Procedure Note Jesus Louis MD - 11/13/2017 Examination: Chest x-ray 2 view Exam Date/Time: 11/13/2017 5:49 PM Reason For Exam: Chest pain Weakness, dizziness, chest pain Comparison: 10/09/2017 chest radiographs Technique: PA and lateral views of the chest were obtained. Findings: Heart size stable from prior study. Pulmonary vasculaturewithin normal. There is no large pleural effusion or pneumothorax. No focal infiltrate or consolidation. ======== IMPRESSION: ======== 1. No acute cardiopulmonary findings. [place] [facility] Final Res ult * ECG 12 lead (11/13/2017 6:03 PM [employer]) 11/13/2017 6:03 PM [employer] Narrative [facility] - 11/13/2017 6:03 PM [employer] ?[facility] ? [address], [place] ? Test Date: ?2017-11-13 Pat Name: ? VINCENT CORPUS ? Department: ?? 41 ? Room: ? [id number] Gender: ? Male ? Console Operator: ?? CJW : ?1970 ? Requested By: MAINE SANCHEZ Order Number: [id number] ? Reading MD: ?? Shiyam Satwani ? Measurements Intervals ?[place] ? Rate: ? 67 ? P: ?21 WY: ? 156 ?QRS: ?23 QRSD: ? 101 ?T: ?4 QT: ? 381 ? QTc: ?402 ? Interpretive Statements SINUS RHYTHM Compared to ECG 02/20/2017 18:41:58 Atrial abnormality no longer present [employer] [employer] Procedure Note Swathi Brannon MD - 11/13/2017 [facility] [address] [place] [address] Test Date: 2017-11-13 Pat Name: CARLOS KELLY Department: 41 Room: [id number] Gender: Male Console Operator: CJFanny : 1970 Requested By: MAINE SANCHEZ Order Number: [id number] Reading MD: Swathi Brannon Measurements Intervals [place] Rate: 67 P: 21 WY: 156 QRS: 23 QRSD: 101 T: 4 QT: 381 QTc: 402 Interpretive Statements SINUS RHYTHM Compared to ECG 02/20/2017 18:41:58 Atrial abnormality no longer present [employer] us [place] APNP ECG ORDERABLES Final Res ult [facility] * ECG 12 lead (11/13/2017 6:03 PM [employer]) 11/13/2017 6:03 PM [employer] Narrative [facility] - 11/13/2017 6:03 PM [employer] ?[facility] ? [address], [place] ? Test Date: ?2017-11-13 Pat Name: ? VINCENT CORPUS ? Department: ?? 41 ? Room: ? [id number] Gender: ? Male ? Console Operator: ?? CJW : ?1970 ? Requested By: MAINE SANCHEZ Order Number: [id number] ? Reading MD: ?? Shiyam Satwani ? Measurements Intervals ?[place] ? Rate: ? 64 ? P: ?27 WY: ? 157 ?QRS: ?23 QRSD: ? 98 ? T: ?9 QT: ? 383 ? QTc: ?396 ? Interpretive Statements SINUS RHYTHM Compared to ECG 11/13/2017 17:08:45 No significant changes [employer] Procedure Note Swathi Brannon MD - 11/13/[address] [facility] Test Date: 2017-11-13 Pat Name: CARLOS KELLY Department: 41 Room: [place] [address] Gender: Male Console Operator: PHOEBE : 1970 Requested By: MAINE SANCHEZ Order Number: [id number] Reading MD: Swathi Brannon Measurements Intervals [place] Rate: 64 P: 27 WY: 157 QRS: 23 QRSD: 98 T: 9 QT: 383 QTc: 396 Interpretive Statements SINUS RHYTHM Compared to ECG 11/13/2017 17:08:45 No significant changes [employer] [place] APNP ECG ORDERABLES Final Res ult [facility] * CT HEAD WO CON (11/13/2017 5:57 PM [employer]) Anatomical Region Laterality Modality Head Computed Tomogra phy 11/13/2017 6:03 PM [employer] Impressions 11/13/2017 6:04 PM [employer] ===== IMPRESSION: ===== 1. ??No acute intracranial abnormalities. Narrative 11/13/2017 6:04 PM [employer] EXAMINATION: CT of the head EXAM DATE/TIME: 11/13/2017 5:54 PM REASON FOR EXAM: ??Dizziness ? Weakness, cramping, dizziness, chest pain COMPARISON: 02/20/[address] TECHNIQUE: Axial CT images of the brain are obtained from skull base through vertex without the use of IV contrast agent. ??Automated exposure control was utilized for dose reduction. FINDINGS: ??No acute hemorrhage or large territory infarct. ??Ventricles are normal in size and symmetric. ?There are no extra-axial fluid collections. ??There is no mass, mass effect, or midline shift. ??There is no depressed skull fracture. ??Visualized paranasal sinuses and mastoid air cells are clear. Visualized orbital contents are unremarkable. Procedure Note Jesus Louis MD - 11/13/2017 EXAMINATION: CT of the head EXAM DATE/TIME: 11/13/2017 5:54 PM REASON FOR EXAM: Dizziness Weakness, cramping, dizziness, chest pain COMPARISON: 02/20/[address] TECHNIQUE: Axial CT images of the brain are obtained from skull base through vertex without the use of IV contrast agent. Automated exposure control was utilized for dose reduction. FINDINGS: No acute hemorrhage or large territory infarct. Ventriclesare normal in size and symmetric. There are no extra-axial fluid collections. There is no mass, mass effect, or midline shift. There isno depressed skull fracture. Visualized paranasal sinuses and mastoid air cells are clear. Visualized orbital contents are unremarkable. ===== IMPRESSION: ===== 1. No acute intracranial abnormalities. [place] Sanchez AP CT Final Res ult * TSH W/REFLEX (11/13/2017 5:38 PM [employer]) TSH 1.330 0.358 - 3.74 uIU/ML 11/13/2017 6:23 PM [employer] [facility] Comment: HIGH DOSES OF BIOTIN MAY INTERFERE WITH THIS TEST RESULT. CORRELATION TO CLINICAL HISTORY AND PRESENTATION RECOMMENDED. FREE T4 NOT INDICATED 11/13/2017 5:38 PM [facility] [employer] Final Res ult Performing Organization Address City/[facility]/ZIP Co de Phone Number [facility] [address] [place] [address], [place] [phone] * MAGNESIUM (11/13/2017 5:38 PM [employer]) MAGNESIUM 2.0 1.8 - 2.4 MG/DL 11/13/2017 6:23 PM [employer] [facility] 11/13/2017 5:38 PM [facility] [employer] Final Res ult Performing Organization Address City/[facility]/ZIP Co de Phone Number [facility] [address] [place] [address], [place] [phone] * LACTIC ACID (11/13/2017 5:38 PM [employer]) LACTIC ACID VENOUS 0.9 0.4 - 2.0 MMOL/L 11/13/2017 6:17 PM [employer] [facility] 11/13/2017 5:38 PM [employer] [facility] LABORATORY Final Res ult Performing Organization Address City/[facility]/ZIP Co de Phone Number [facility] [address] [place] [address], [place] [phone] * SED RATE, ERYTHROCYTE (ESR) (11/13/2017 5:38 PM [employer]) ESR 10 0 - 15 mm/hr 11/13/2017 6:54 PM [employer] [facility] 11/13/2017 5:38 PM [facility] [employer] [place] Final Res ult [facility] [address] [place] [address], * (ABNORMAL) PROTIME/INR, VENOUS (11/13/2017 5:38 PM [employer]) PROTIME 12.5(H) 9.6 - 12.2 SEC 11/13/2017 6:05 PM [employer] [facility] INR 1.1 11/13/2017 6:05 PM [employer] [facility] Comment: Recommended INR Therapeutic Goals: ??2.0-3.0 Routine Therapy ??2.5-3.5 Mechanical Prosthetic Valves (High Risk) ??3.0-4.0 Acute MN (to prevent Systemic Embolism) The INR is used only for patients on stable oral anticoagulant therapy. It makes no significant contribution to the diagnosis or treatment of patients whose Protime is prolonged for other reasons. 11/13/2017 5:38 PM [employer] [place] [facility] Final Res ult Performing Organization Address City/[facility] Co de Phone Number [facility] [address] [place] [address], * (ABNORMAL) COMPREHENSIVE METABOLIC PANEL (11/13/2017 5:38 PM [employer]) GLUCOSE 90 70 - 99 MG/DL 11/13/2017 6:23 PM [employer] [facility] BUN 6(L) 7 - 18 MG/DL 11/13/2017 6:23 PM [employer] [facility] CREATININE S/P/B 1.10 0.7 - 1.3 MG/DL 11/13/2017 6:23 PM [facility] SODIUM S/P/B 144 136 - 145 MMOL/L 11/13/2017 6:23 PM [facility] POTASSIUM S/P/B 3.7 3.5 - 5.1 MMOL/L 11/13/2017 6:23 PM [facility] CHLORIDE S/P/B 109(H) 100 - 108 MMOL/L 11/13/2017 6:23 PM [facility] CO2 29.5 21 - 32 MMOL/L 11/13/2017 6:23 PM [facility] CALCIUM S/P/B 9.0 8.5 - 10.1 MG/DL 11/13/2017 6:23 PM [facility] BILIRUBIN TOTAL S/P/B 1.0 0.2 - 1.2 MG/DL 11/13/2017 6:23 PM [facility] TOTAL PROTEIN S/P/B 7.8 6.4 - 8.2 G/DL 11/13/2017 6:23 PM [facility] ALBUMIN S/P/B 4.0 3.4 - 5.0 G/DL 11/13/2017 6:23 PM [facility] AST 33 15 - 37 U/L 11/13/2017 6:23 PM [facility] ALT 34 16 - 60 U/L 11/13/2017 6:23 PM [facility] ALKALINE PHOSPHATASE S/P/B 62 50 - 136 U/L 11/13/2017 6:23 PM [facility] ANION GAP 9.2 8 - 20 MMOL/L 11/13/2017 6:23 PM [facility] BUN CREATININE RATIO 5.5(L) 6 - 26 11/13/2017 6:23 PM [facility] A/G RATIO 1.1 1.0 - 2.0 RATIO 11/13/2017 6:23 PM [facility] EGFR NON-AFR. AMER. >60 >60 ML/MIN/1.7 3 M2 11/13/2017 6:23 PM [facility] EGFR AFR. AMER. >60 >60 ML/MIN/1.7 3 M2 11/13/2017 6:23 PM [facility] Comment: NOTE: eGFR is not calculated for patients <18 years of age. This is an estimated GFR (CKD EPI) and should not be used for calculating drug doses. 11/13/2017 5:38 PM [employer] [place] [facility] Final Res ult [facility] [address] [place] [address], * (ABNORMAL) CBC W/DIFF AUTOMATED (11/13/2017 5:38 PM [employer]) WBC 5.2 4.8 - 10.8 x10'3/uL 11/13/2017 6:13 PM [facility] RBC 5.99 4.70 - 6.10 x10'6/uL 11/13/2017 6:13 PM [facility] HGB 12.5(L) 14.0 - 18.0 G/DL 11/13/2017 6:13 PM [facility] HCT 42.4(L) 43.0 - 54.0 % 11/13/2017 6:13 PM [facility] MCV 70.8(L) 80.0 - 94.0 FL 11/13/2017 6:13 PM [facility] MCH 20.9(L) 27.0 - 31.0 PG 11/13/2017 6:13 PM [facility] MCHC 29.5(L) 32.0 - 36.0 G/DL 11/13/2017 6:13 PM [facility] RDW 20.6(H) 11.5 - 14.5 % 11/13/2017 6:13 PM [facility] PLT 193 130 - 400 x10'3/uL 11/13/2017 6:13 PM [facility] MPV 9.1(L) 9.3 - 12.2 FL 11/13/2017 6:13 PM [facility] BASOPHILS 0.8 0.0 - 1.0 % 11/13/2017 6:15 PM [facility] EOSINOPHILS 2.9 1.0 - 3.0 % 11/13/2017 6:15 PM [facility] NEUTROPHILS % 52.9 43.0 - 65.0 % 11/13/2017 6:15 PM [facility] LYMPHOCYTES % 35.5 20.0 - 46.0 % 11/13/2017 6:15 PM [facility] MONOCYTES % 7.7 5.0 - 12.0 % 11/13/2017 6:15 PM [facility] IMMATURE GRANS % 0.2 0.0 - 1.0 % 11/13/2017 6:15 PM [facility] RBC MORPHOLOGY SLIDE REVIEWED 2017 6:15 PM [facility] Comment: 2+ ANISOCYTOSIS 2+ MICROCYTES 2+ HYPOCHROMASIA 1+ POLYCHROMASIA 1+ POIKILOCYTOSIS OVALOCYTES ACANTHOCYTES PATHOLOGIST COMMENT PATHOLOGIST REVIEW ADDED TO REPORT 11/15/2017 8:28 PM [facility] Comment: AGREE WITH CBC DATA. MILD MICROCYTIC ANEMIA. POSSIBLE ETIOLOGIES INCLUDE THALASSEMIA, IRON DEFICIENCY, AND ANEMIA OF CHRONIC DISEASE. ??IRON STUDIES AND HEMOGLOBIN ELECTROPHERESIS MAY BE HELPFUL. ABNORMAL LYMPHOID CELLS. FLOW CYTOMETRY OF PERIPHERAL BLOOD MAY BE HELPFUL IF THERE IS NO PREVIOUS DIAGNOSIS. REVIEWED BY KAREN CR M.D., PATHOLOGIST PATH REVIEW ADDED TO REPORT [id number] SMN 11/13/2017 5:38 PM AUTOMATIC CLIPPER AND STRIPPER [place] Ceballos Daniel [facility] Edited Lindsey alvarez - Final [facility] [address] [place] [address], [place] [phone] documented in this encounter Visit Diagnoses Diagnosis Anxiety about health- Primary documented in this encounter Administered Medications Inactive Administered Medications - up to 3 most recent administrations Medication Order MAR Action Action Date Dose Rate Site aspirin chewable tablet 324 mg 324 mg, Oral, Once, 1 dose, On 11/13/17 at 1745 Given 11/13/2017 6:16 PM AUTOMATIC CLIPPER AND STRIPPER 324 mg documented in this encounter Active and Recently Administered Medications Times are shown in AUTOM[employer]IP[employer]IP[employer]. Scheduled Medication Order 11/11/2017 11/12/2017 11/13/2017 aspirin chewable tablet 324 mg (COMPLETED) 324 mg, Oral, Once, 1 dose, On 11/13/17 at 1745 1816 (Given - Provid er: João Henry RN) documented in this encounter Care Teams Caustic Mixer Relationship Specialty Start Date End Date Alina Christensen, PCP - General 02/20/17 documented as of this encounter
--- OUTSIDE RECORDS SUMMARY | 2024-09-10 03:49 | XMS_ITS | Encounter Summary ---
Author Organization [facility] Address [address] [place] [address]. [place], [place] [id number] [place] [address] Care Team Providers Care Track Laying Supervisor Name Role Phone Md Generic Conversion Primary [...] Generic Conversion MD Primary Care Provider Unavailable Md Generic Conversion Primary Care Provider Unavailable Encounter Details Date Type Department Care Team (Late st Contact Info) Description 02/14/2015 Abstract [facility] [address] [place], [place] [id number] Reymundo Lujan, JANE [address] [facility] [address] [place] [address] Social History Tobacco Use Types Packs/Day Years Used Date Smoking Tobacco: Never Assessed Sex and Gender Information Value Date Recorded Sex Assigned at Not on file Legal Sex Male 10:39 PM CDT Gender Identity Not on file Sexual Orientation Not on file documented as of this encounter Plan of Treatment Not on file documented as of this encounter Visit Diagnoses Diagnosis Hypertonicity of bladder documented in this encounter Care Teams Track Laying Supervisor Relationship Specialty Start Date End Date Alina Christensen MD PCP - General 02/20/17 Alina Christensen MD PCP - General 10/11/16 7 Alina Christensen MD PCP - General 07/19/16 Md Generic MD Ivis PCP - General 05/06/16 Md Generic Conversion, MD PCP - General 01/23/16 Md, Generic Conversion, MD PCP - General 11/27/15 Md, Generic Conversion, MD PCP - General 11/13/15 Md, Generic Conversion, MD PCP - General 09/20/15 6 , Generic Conversion, PCP - General 09/10/15 6 Md, Generic Conversion, MD PCP - General 02/14/1509/09 documented as of this encounter
--- OUTSIDE RECORDS SUMMARY | 2024-09-10 03:49 | XMS_ITS | Encounter Summary ---
Author Organization [facility] Address [address] [place] [address]. [place], [place] [phone] [place] [address] Care Team Providers Care Software Quality Automation Engineer Name Role Phone Md Generic Conversion Primary Care Provider Unavailable Md Generic Conversion Primary Care Provider Unavailable Md Generic Conversion Primary Care Provider Unavailable Md Generic Conversion Primary Care Provider Unavailable Md Generic Conversion Primary Care Provider Unavailable Md Generic Conversion Primary Care Provider Unavailable Encounter Details Date Type Department Care Team (Late st Contact Info) Description 11/27/2015 Abstract [facility] [address] [place] [address] Avelina Salcedo, [facility] [address] [facility] [address] [place] [address] Social History Tobacco Use Types Packs/Day Years [...] Priority Date/Time Associated Diagnosis Comments URINALYSIS AUTO DIP STAT 11/27/2015 5 :34 PM CDT documented in this encounter Results * (ABNORMAL) URINALYSIS AUTO DIP (11/27/2015 5:34 PM CDT) SOURCE (FLUID) URINE CLEAN CATCH 11/27/2015 5:34 PM CDT [facility] COLOR (U) JD 11/27/2015 5:52 PM CDT [facility] Comment: TESTING PERFORMED AT [facility] [address] [place] [address] ??[id number] MALKA ROWLAND M.D., PLANNING ADVISOR SUDHAKAR RODGERS 11/27/2015 5:52 PM CDT [facility] SPECIFIC GRAVITY (U) 1.025 1.001 - 1.030 11/27/2015 5:52 PM CDT [facility] U PH 5.5 5.0 - 9.0 11/27/2015 5:52 PM CDT [facility] LEUKOCYTES (U) NEGATIVE NEGATIVE 11/27/2015 5:52 PM CDT [facility] NITRITES NEGATIVE NEGATIVE 11/27/2015 5:52 PM CDT [facility] PROTEIN (U) 30(H) <30 MG/DL 11/27/2015 5:52 PM CDT [facility] URINE GLUCOSE NEGATIVE NEGATIVE MG/DL 11/27/2015 5:52 PM CDT [facility] KETONES MG/DL (U) TRACE(A) NEGATIVE MG/DL 11/27/2015 5:52 PM CDT [facility] UROBILINOGEN NEGATIVE NEGATIVE MG/DL 11/27/2015 5:52 PM CDT [facility] BILIRUBIN (U) NEGATIVE NEGATIVE MG/DL 11/27/2015 5:52 PM CDT [facility] BLOOD (U) NEGATIVE NEGATIVE 11/27/2015 5:52 PM CDT [facility] CULTURE & SENSITIVITY INDICATED? CULTURE IS NOT INDICATED 11/27/2015 5:52 PM CDT [facility] 11/27/2015 5:34 PM CDT 11/27/2015 5:44 PM CDT us Generic Conversion Md RUSSELL URINE ORDERABLES Final Result [facility] [address] [place] [address], [place] [phone] documented in this encounter Visit Diagnoses Diagnosis Dysuria documented in this encounter Care Teams Software Quality Automation Engineer Relationship Specialty Start Date End Date Md Generic Conversion, PCP - General 02/20/17 Md Generic Conversion, PCP - General 10/11/16 7 Md Generic Conversion, PCP - General 07/19/16 Md Generic Conversion, PCP - General 05/06/16 Md Generic Conversion, PCP - General 01/23/16 Md Generic Conversion, PCP - General 11/27/15 documented as of this encounter
--- OUTSIDE RECORDS SUMMARY | 2024-09-10 03:49 | XMS_ITS | Encounter Summary ---
Author Organization [facility] Address [address] [place] [address]. [place], [place] [id number] [place], [place] [phone] Care Team Providers Care Still Pump Operator Name Role Phone Alina Christensen MD Primary Care Provider Unavailable Alina Christensen MD Primary Care Provider Unavailable Alina Christensen MD Primary Care Provider Unavailable Encounter Details Date Type Department Care Team (Late st Contact Info) Description 07/24/[address] [facility] Family & Internal Medicine [address] [phone] Regina Lopez FNP [address] [place] [address] Social History Tobacco Use Types Packs/Day Years [...] on filedocumented in this encounter Care Teams Still Pump Operator Relationship Specialty Start Date End Date Alina Christensen MD PCP - General 02/20/17 Alina Christensen MD PCP - General 10/11/16 7 Alina Christensen MD PCP - General 07/19/16 documented as of this encounter
--- OUTSIDE RECORDS SUMMARY | 2024-09-10 03:49 | XMS_ITS | Encounter Summary ---
Author Organization [facility] Address [address] [place] [address]. [place], [place] [phone] [place], [place] [phone] Care Team Providers Care Self Propelled Dredge Operator Name Role Phone None, Provider MD Primary Care Provider Unavaila ble Reason for Visit * Reason Comments Sore Throat Encounter Details Date Type Department Care Team (Late st Contact Info) Description 06/03/2018 6:01 PM CDT - 06/03/2018 7:06 PM CDT Hospital Encounter [address] [address] Zenaida Olvera, VENTURA [address] [address] Sore Throat Discharge Disposition: Home or Self Care (Routine [...] Reading Time Taken Comments Blood Pressure 135/75 06/03/2018 6:03 PM CDT Pulse 70 06/03/2018 6:03 PM CDT Temperature 37 ??C (98.6 ??F) 06/03/2018 6:03 PM CDT Respiratory Rate 20 06/03/2018 6:03 PM CDT Oxygen Saturation 98% 06/03/2018 6:03 PM CDT Inhaled Oxygen Concentration - - Weight 117.9 kg (260 lb) 06/03/2018 6:03 PM CDT Height 185.4 cm (6' 1 ) 06/03/2018 6:03 PM CDT Body Mass Index 34.3 06/03/2018 6:03 PM CDT documented in this encounter Discharge Instructions * Discharge Instructions* JANE Waller - 06/03/2018 6:45 PM CDT Apply ice pack over a towel to affected area for 20 minutes at least 4-5 times per day. Apply Biofreeze which is available [id number] without a prescription. Do apply warm moist heat to the neck for 15 minutes before attempting any gentle exercises. Do follow-up with your chiropractor and a primary care doctor who does accept your insurance, you may need to refer to your insurance customer service support center. * Attachments The following attachments cannot be sent through Care Everywhere. * SINUSITIS IN ADULTS (SPANISH) * CHRONIC NECK PAIN DISCHARGE INSTRUCTIONS (SPANISH) documented in this encounter Medications at Time of Discharge albuterol sulfate HFA 108 (90 BASE) MCG/ACT inhaler Inhale 2 puffs into the lungs every 6 (six) hours as needed for Wheezing. 12/12/2018 alprazolam 2 MG tablet Take 2 mg by mouth 4 (four) times daily as needed. 11/30/2019 atenolol 100 MG tablet Take 100 mg by mouth daily. 12/12/2018 Azelastine HCl 0.05 % Solution Place 1 drop into both eyes 2 (two) times daily. 6 mL 02/01/2018 06/18/2018 cetirizine-pseud oephedrine ER 5mg-120mg 12 hr tablet Take 1 tablet by mouth 2 (two) times daily for 28 days. 56 tablet 06/03/2018 06/18/2018 cyclobenzaprine 10 MG tablet Take 1 tablet (10 mg total) by mouth 3 (three) times daily as needed for Muscle Spasms. 60 tablet 06/03/2018 07/03/2018 escitalopram 20 MG tablet Take 40 mg by mouth daily. 09/19/2018 fluticasone propionate 50 MCG/ACT nasal spray 1 spray by Nasal route daily. 12/12/2018 methylPREDNISolo ne, BIJU, 4 MG tablet Medrol Dosepak as directed 1 each 06/03/2018 06/18/2018 Olopatadine HCl 0.6 % Solution 2 sprays by Nasal route. 04/29/2018 06/18/2018 documented as of this encounter ED Notes * Norah Manzo RN - 06/03/2018 6:13 PM CDT PT GIVE RAMBLING HX OF MULTIPLE COMPLAINTS INVOLVING MANY BODY SYSTEMS. C/O HEADACHE, SINUS DRAINAGE, DIZZINESS ONSET Wednesday. ALSO STATES HE SUFFERS FROM CHRONIC NECK PAIN THAT HE SEES A CHIROPRACTOR FOR W/O RELIEF OF HIS PAIN. ALSO STATES HE SUFFERS FROM ANXIETY AND ALL OF HIS HEALTH ISSUES INCREASES HIS ANXIETY LEVEL. * JANE Waller - 06/03/2018 6:00 PM CDT Emergency Department Note Chief Complaint Chief Complaint Patient presents with ??? Sore Throat History of Present Illness Patient complains of multiple things, today states that he has neck pain, sore and stiff in left side of his neck and shoulder, has a history of chronic neck pain. Is out of Flexeril. Usually sees a chiropractor and at present is obsessing that the chiropractor wants to go his business but is neverin the office. Complains of sinus congestion, using [place] pot and Flonase twice a day. States that at nighttime he sometimes feels confused after he wakes up from sleep, blowing yellow clear mucus from his nose and does not have a fever. No history of sinus surgery. Has been taking Benadryl but 1 time a day in the morning and wonders why he is sleepy through the day and fatigued. He also is complaining of bladder pressure and urinary frequency. This is been worked up on his most recent visit with blood work urine analysis and CAT scan. He states that he has not followed up with his gastrointestinal specialist as the individual is a smart aleck on the phone and has not contacted his general surgeon as that individual is in [place] and will not perform necessary general surgery and until he is able to take 3 weeks off and have home health for that duration of time. That was a running commentary at his last visit. He states that he has made multiple phone calls to a variety of doctors but no one takes his insurance and he plans to change his insurance after the first of the year. He reports that he has been banned from [facility] for attempting to wean himself off of Xanax and broke his medication contract. Medical History ALLERGIES: Allergies Allergen Reactions ??? Ketorolac Tromethamine Anaphylaxis ??? Pepcid [Famotidine] Shortness of Breath ??? Bactrim [Sulfamethoxazole-Trimethoprim] Hives ??? Contrast [Iodine] Hives ??? Keflex [Cephalexin] Hives ??? Levofloxacin Unknown ??? Lidocaine Angioedema ??? Oxycodone Hives ??? Percocet [Oxycodone-Acetaminophen] Hives ??? Zithromax [Azithromycin] Hives ??? Paxil [Paroxetine] Anxiety MEDICATIONS: Prior to Admission medications Medication Sig Start Date End Date Taking? Authorizing Provider cetirizine-pseudoephedrine ER 5mg-120mg 12 hr tablet Take 1 tablet by mouth 2 (two) times daily for28 days. 06/03/18 07/01/18 Yes JANE Waller cyclobenzaprine 10 MG tablet Take 1 tablet (10 mg total) by mouth 3 (three) times daily as needed for Muscle Spasms. 06/03/18 07/03/18 Yes JANE Waller methylPREDNISolone, BIJU, 4 MG tablet Medrol Dosepak as directed 06/03/18 Yes JANE Waller albuterol sulfate HFA 108 (90 BASE) MCG/ACT inhaler Inhale 2 puffs into the lungs every 6 (six) hours as needed for Wheezing. Doc Abstract alprazolam 2 MG tablet Take 2 mg by mouth 3 (three) times daily as needed. Doc Abstract atenolol 100 MG tablet Take 100 mg by mouth daily. Doc Abstract Azelastine HCl 0.05 % Solution Place 1 drop into both eyes 2 (two) times daily. 02/01/18 Regina Carson NP escitalopram 20 MG tablet Take 40 mg by mouth daily. Doc Abstract fluticasone propionate 50 MCG/ACT nasal spray 1 spray by Nasal route daily. Doc Abstract PAST MEDICAL HISTORY: Past Medical History: Diagnosis Date ??? Anxiety ??? Benign carcinoid tumor of sigmoid colon ??? Depressed ??? Diabetes mellitus type 2 ??? Hypertension PAST SURGICAL HISTORY: Past Surgical History: Procedure Laterality Date ??? CHOLECYSTECTOMY FAMILY HISTORY: Family History Problem Relation Age of Onset ??? Cancer Mother ??? Stroke Father SOCIAL HISTORY: Social History Tobacco Use ??? Smoking status: Never Smoker ??? Smokeless tobacco: Never Used Substance Use Topics ??? Alcohol use: No ??? Drug use: No Review of Systems Review of Systems Constitutional: Negative for chills and fever. HENT: Positive for congestion, rhinorrhea, sinus pressure and sore throat. Respiratory: Positive for cough. Negative for shortness of breath. Dry cough Cardiovascular: Negative for chest pain. Gastrointestinal: Negative for abdominal pain, constipation, diarrhea and nausea. Genitourinary: Positive for frequency. Negative for decreased urine volume, difficulty urinating, dysuria, flank pain and urgency. Musculoskeletal: Positive for neck pain. Skin: Negative for rash. Neurological: Negative for speech difficulty, weakness, light-headedness, numbness and headaches. Psychiatric/Behavioral: Negative for decreased concentration. Physical Exam Filed Vitals: 06/03/18 1803 BP: 135/75 Pulse: 70 Resp: 20 Temp: 98.6 ??F (37 ??C) TempSrc: Oral SpO2: 98% Weight: 117.9 kg (260 lb) Height: 6' 1 (1.854 m) Physical Exam Constitutional: He is oriented to person, place, and time. He appears well- developed and well-nourished. No distress. Is ambulatory without gait defect. HENT: Head: Normocephalic. Right Ear: External ear normal. Left Ear: External ear normal. Nose: Nose normal. Boggy turbinates. No septal deviation. Moderate clear bilateral rhinorrhea. Eyes: Pupils are equal, round, and reactive to light. Neck: Normal range of motion. Neck supple. Left paracervical tenderness to palpation, no bony tenderness. No erythema to spine. Has full rangeof motion without limitation of movement. Moderate spasm palpable to left trapezius. Cardiovascular: Normal rate, regular rhythm, normal heart sounds and intact distal pulses. No murmur heard. Pulmonary/Chest: Effort normal and breath sounds normal. Abdominal: Soft. Bowel sounds are normal. There is no tenderness. Musculoskeletal: He exhibits no edema, tenderness or deformity. Lymphadenopathy: He has no cervical adenopathy. Neurological: He is alert and oriented to person, place, and time. No cranial nerve deficit. He exhibits normal muscle tone. Coordination normal. Skin: Skin is warm and dry. No pallor. Psychiatric: Flat affect. Nursing note and vitals reviewed. Diagnostic Studies / Procedures ELECTROCARDIOGRAMS: No results found for this visit on 06/03/18. LABORATORY STUDIES: No results found for this visit on 06/03/18. IMAGING STUDIES No orders to display ED Course / Medical Decision Making Did discuss treatment need for follow-up. Did explain the patient to contact his insurance company and locate providers to accept his insurance. He will probably need to take multiple phone calls to locate a provider who is accepting new patients He Has made multiple attempts to engage in continued conversation of additional complaints after a thorough attempt to elicit his concerns for the entire visit. He steps out of the patient room to engage in additional conversation about himself in the hallway despite other patients were present. Have encouraged patient to establish primary care provider. He also continues to belittle other providers and their mannerisms or their approach to business ortheir approach to addressing his concerns. Concern for malingering or anxiety over his health and wellness. Medications - No data to display Patient has a nontoxic appearance. He has left the room on more than one occasion to leave the department and returns to engage in further planes even at the time of discharge. Clinical Impression Rhinosinusitis (Primary) Neck pain Discharge Medication List as of 06/03/2018 6:54 PM START taking these medications Details cetirizine-pseudoephedrine ER 5mg-120mg 12 hr tablet Take 1 tablet by mouth 2 (two) times daily for28 days., Starting Wed06/03/2018, Until Wed07/01/2018, Print Class: Print Pharmacy: [facility] [address] [place] [address] - [address] [place] [address] RD AT [facility] [address] (Ph #: [phone]) cyclobenzaprine 10 MG tablet Take 1 tablet (10 mg total) by mouth 3 (three) times daily as needed for Muscle Spasms., Starting Wed06/03/2018, Until Wed07/03/2018, Print Class: Print Pharmacy: [facility] [address] [place] [address] - [address] AT [facility] [address] (Ph #: [phone]) Disposition: Discharge Follow-Up: Harika Robbins MD [address] [facility] [address] [address] call for new patient appointment JANE WALLER 06/03/2018 JANE Waller 06/03/18 194 Cosigned by Jesus Negrete MD at 06/03/2018 9:10 PM CDT documented in this encounter Plan of Treatment Not on file documented as of this encounter Visit Diagnoses Diagnosis Rhinosinusitis- Primary Unspecified sinusitis (chronic) Neck pain Cervicalgia documented in this encounter Care Teams Self Propelled Dredge Operator Relationship Specialty Start Date End Date None, Provider, PCP - General 06/03/18 08/24/19 documented as of this encounter
--- OUTSIDE RECORDS SUMMARY | 2024-09-10 03:49 | XMS_ITS | Encounter Summary ---
Author Organization [facility] Address [address] [place] [address]. [place], [place] [address] [place] [address] Care Team Providers Care Recruitment And Outreach Assistant Name Role Phone Unavailable Primary Care Provider Unavailabl e Reason for Visit * Reason Comments Breathing Problem Headache Encounter Details Date Type Department Care Team ([facility] st Contact Info) Description 12/23/2017 4:48 PM CDT - 12/23/2017 9:22 PM CDT Emergency [facility] [place] [address] Prosper Tellez MD [address] [place] [address] [place] [address] Breathing Problem; Headache Discharge Disposition: Home or Self Care [...] Sign Reading Time Taken Comments Blood Pressure 153/87 12/23/2017 7:47 PM CDT Pulse 69 12/23/2017 7:47 PM CDT Temperature 37.4 ??C (99.3 ??F) 12/23/2017 4:46 PM CD T Respiratory Rate 20 12/23/2017 7:47 PM CDT Oxygen Saturation 97% 12/23/2017 7:47 PM CDT Inhaled Oxygen Concentration - - Weight 128.8 kg (283 lb 15.2 oz) 12/23/2017 4:46 PM CDT Height 185.4 cm (6' 1 ) 12/23/2017 4:46 PM CDT Body Mass Index 37.46 12/23/2017 4:46 PM CDT documented in this encounter Discharge Instructions * Discharge Instructions* Prosper Tellez MD - 12/23/2017 8:57 PM CDT Close follow-up without fail till resolution and further diagnostic imaging as indicated with handson reassessment. Fluids rest gargle Tylenol call follow-up U primary care///keep an eye on your blood pressure * Attachments The following attachments cannot be sent through Care Everywhere. * SORE THROAT DISCHARGE INSTRUCTIONS, ADULT (GABONESE) * SORE THROAT IN ADULTS (GABONESE) * VIRAL PHARYNGITIS DISCHARGE INSTRUCTIONS (GABONESE) * VIRAL PHARYNGITIS (GABONESE) documented in this encounter Medications at Time [...] as of this encounter ED Notes * Prosper Tellez MD - 12/23/2017 8:43 PM CDT Chief Complaint Chief Complaint Patient presents with ??? Breathing Problem ??? Headache History of Present Illness Patient is a 47-year-old male presenting with difficulty breathing. History provided by: Patient (Multiple complaint my throat is sore I am short of breath it feels like peppers in my throat I have some congestion I had some teeth extracted I may have had an allergicreaction to Printer feel short of breath with a headache in my chest off and on 2 days) Breathing Problem Location: Throat Quality: Sore like peppers in my throat Severity: Mild Onset quality: Gradual Duration: 2 days Timing: Intermittent Progression: Waxing and waning Chronicity: Chronic Context: Multiple nonspecific complaints related to sore throat short of breath post tooth extraction allergic reaction to Printer feeling short of breath Relieved by: Nothing Worsened by: Nothing Ineffective treatments: Nothing Associated symptoms: no chest pain, no cough, no fatigue, no fever, no loss of consciousness, no rash, no rhinorrhea, no shortness of breath and no wheezing Risk factors: anxiety Medical History ALLERGIES: Allergies Allergen Reactions ??? [...] chills, fatigue and fever. HENT: Negative for dental problem, ear discharge, facial swelling, rhinorrhea and sinus pressure. Eyes: Negative for pain. Respiratory: Negative for cough, chest tightness, shortness of breath and wheezing. Cardiovascular: Negative for chest pain. Endocrine: Negative for heat intolerance and polydipsia. Genitourinary: Negative for enuresis and hematuria. Musculoskeletal: Negative for gait problem and joint swelling. Skin: Negative for pallor and rash. Allergic/Immunologic: Negative for environmental allergies. Neurological: Negative for loss of consciousness, facial asymmetry and numbness. Hematological: Negative for adenopathy. Does not bruise/bleed easily. Psychiatric/Behavioral: Negative for confusion, decreased concentration and dysphoric mood. All other systems reviewed and are negative. Physical Exam Filed Vitals: 12/23/17 1646 12/23/17 1900 12/23/17 1947 BP: (!) 171/98 (!) 160/102 153/87 Pulse: 71 69 Resp: 20 20 Temp: 99.3 ??F (37.4 ??C) TempSrc: Temporal SpO2: 97% 97% 97% Weight: 128.8 kg (283 lb 15.2 oz) Height: 6' 1 (1.854 m) Physical Exam Constitutional: He is oriented to person, place, and time. Vital signs are normal. He appears well-developed. Non-toxic appearance. He does not have a sickly appearance. He does not appear ill. No distress. HENT: Head: Normocephalic. Mouth/Throat: No trismus in the jaw. No uvula swelling or dental caries. No oropharyngeal exudate, posterior oropharyngeal edema, posterior oropharyngeal erythema or tonsillar abscesses. Eyes: EOM are normal. Neck: No JVD present. No tracheal deviation present. No thyromegaly present. Cardiovascular: Normal rate and regular rhythm. No murmur heard. Pulmonary/Chest: Breath sounds normal. No accessory muscle usage. No tachypnea. No respiratory distress. He has no decreased breath sounds. He has no wheezes. He has no rhonchi. He has no rales. Abdominal: Normal appearance. He exhibits no distension. There is no tenderness. There is no rebound and no CVA tenderness. Musculoskeletal: He exhibits no edema. Neurological: He is alert and oriented to person, place, and time. He displays normal reflexes. No cranial nerve deficit. Skin: Skin is warm and dry. No rash noted. Psychiatric: He has a normal mood and affect. His behavior is normal. Thought content normal. Nursing note and vitals reviewed. Diagnostic Studies / Procedures ELECTROCARDIOGRAMS: Results for orders placed or performed during the hospital encounter of 12/23/17 ECG 12-Lead [facility]ative [facility] [place] Test Date: 2017-12-23 Pat Name: CARLOS KELLY Department: 41 Room: [facility] Gender: Male Director Data Architecture: BERNARDO : 1970 Requested By: RAMILA KAT Order Number: [id number] Reading MD: Carlos Fajardo Measurements Intervals [place] Rate: 71 P: 22 FL: 155 QRS: 34 QRSD: 94 T: 1 QT: 358 QTc: 389 Interpretive Statements SINUS RHYTHM Compared to ECG 11/13/2017 17:43:26 No significant changes LABORATORY STUDIES: Results for orders placed or performed during the hospital encounter of 12/23/17 CBC W/DIFF AUTOMATED Result Value Ref Range WBC 5.7 4.8 - 10.8 x10'3/uL RBC 6.17 (H) 4.70 - 6.10 x10'6/uL HGB 12.9 (L) 14.0 - 18.0 G/DL HCT 43.2 43.0 - 54.0 % MCV 70.0 (L) 80.0 - 94.0 FL MCH 20.9 (L) 27.0 - 31.0 PG MCHC 29.9 (L) 32.0 - 36.0 G/DL RDW 19.0 (H) 11.5 - 14.5 % PLT 246 130 - 400 x10'3/uL MPV 9.1 (L) 9.3 - 12.2 FL BASOPHILS 0.7 0.0 - 1.0 % EOSINOPHILS 2.6 1.0 - 3.0 % NEUTROPHILS 56.4 43.0 - 65.0 % LYMPHOCYTES 33.7 20.0 - 46.0 % MONOCYTES 6.2 5.0 - 12.0 % IMMATURE GRANS 0.4 0.0 - 1.0 % RBC MORPHOLOGY SLIDE REVIEWED PATHOLOGIST COMMENT PATHOLOGIST REVIEW TO FOLLOW. COMPREHENSIVE METABOLIC PANEL Result Value Ref Range GLUCOSE 89 70 - 99 MG/DL BUN 10 7 - 18 MG/DL CREATININE 0.86 0.7 - 1.3 MG/DL SODIUM 143 136 - 145 MMOL/L POTASSIUM 4.1 3.5 - 5.1 MMOL/L CHLORIDE 109 (H) 100 - 108 MMOL/L CO2 24.5 21 - 32 MMOL/L CALCIUM 9.4 8.5 - 10.1 MG/DL TOTAL BILIRUBIN 0.8 0.2 - 1.2 MG/DL TOTAL PROTEIN 8.3 (H) 6.4 - 8.2 G/DL ALBUMIN 4.0 3.4 - 5.0 G/DL AST 40 (H) 15 - 37 U/L ALT 42 16 - 60 U/L ALK PHOS 82 50 - 136 U/L ANION GAP 13.6 8 - 20 MMOL/L BUN CREATININE RATIO 11.7 6 - 26 A/G RATIO 0.9 (L) 1.0 - 2.0 RATIO eGFR Non-Afr. Amer. >90 >90 ML/MIN/1.73 M2 eGFR Afr. Amer. >90 >90 ML/MIN/1.73 M2 TROPONIN, QUANT Result Value Ref Range TROPONIN I 0.024 <0.045 ng/mL. TROPONIN, QUANT Result Value Ref Range TROPONIN I 0.022 <0.045 ng/mL. CKMB,(MB FRACTION ONLY) Result Value Ref Range CK-MB 1.7 0.5 - 3.6 NG/ML CK (CPK) Result Value Ref Range CPK 185 35 - 232 U/L IMAGING STUDIES XR CHEST PA+LAT Final Result by User, [id number] (12/23 1848) EXAMINATION: Chest X-Ray 2 View EXAM DATE/TIME: 12/23/2017 5:59 PM REASON FOR EXAM: chest pain COMPARISON: 11/13/2017 TECHNIQUE: PA and lateral views of the chest were obtained. FINDINGS: Heart size is within normal limits. Pulmonary vasculature is within normal limits. There is no large pleural effusion or pneumothorax. There is no focal infiltrate or consolidative change. =====IMPRESSION:===== 1. No acute cardiopulmonary findings. Course / Medical Decision Making Workup Notes Comment By Time Negative workup afebrile no leukocytosis cardiac workup negative no consolidation risk stratification for PE low ARIEL score <3 Prosper Tellez MD 12/23 2050 Suspect underlying anxiety neurosis patient known to me from previous attendance at [facility] in [place] not happy with disposition wanting answers unable to reassure supportive care Prosper Tellez MD 12/23 2050 MDM Number of Diagnoses or Management Options Anxiety neurosis: Elevated blood pressure reading: Sore throat: Diagnosis management comments: Multiple complaint multiple nonspecific complaints nothing to suggest dental infection airway issue acute coronary syndrome or any respiratory issue nothing to suggest strep throat sinusitis or anything acute abdomen obstruction states allergic reaction to Printer patient known to me see my records from [facility] Clinical Impression Sore throat (Primary) Elevated blood pressure reading Anxiety neurosis Disposition: Discharge Prosper Tellez MD 12/23/172054 Prosper Tellez MD 12/23/172100 * Sarwat Armstrong RN - 12/23/2017 7:00 PM CDT Pt reports SOB for the last several days worse the last 2. States, I feel like I have pepper in mythroat , causing SOB and pain. Also c/o dizziness and feeling lightheaded in the morning when waking up. * Taya Mitchell RN - 12/23/2017 5:21 PM CDT Pt called this RN over to him and stated that he had chest pain and has not gotten an EKG. This RN explained that we were not told about his chest pain when he arrived to ED. Orders placed for EKG. * Taya Mitchell RN - 12/23/2017 4:45 PM CDT Pt ambulatory to ED with c/o SOB, headache, dizziness, and feels like pepper in his throat x 2 days. Pt reports last week had a tooth surgically removed. documented in this encounter Plan of Treatment Not on file documented as of this encounter Procedures Procedure Name Priority Date/Time Associated Diagnosis Comments TROPONIN, QUANT STAT 12/23/2017 7:36 PM CDT ECG 12-LEAD STAT 12/23/2017 6:34 PM CDT XR CHEST PA+LAT STAT 12/23/2017 6:08 PM CDT COMPREHENSIVE METABOLIC PANEL STAT 12/23/2017 5:37 PM CDT CKMB(MB FRACTION ONLY) STAT 8 5:37 PM CDT CBC W/DIFF AUTOMATED STAT 12/23/2017 5:37 PM CDT TROPONIN, QUANT STAT 12/23/2017 5:37 PM CDT CK (CPK) STAT 12/23/2017 5:37 PM CDT documented in this encounter Results * TROPONIN, QUANT (12/23/2017 7:36 PM CDT) TROPONIN I 0.022 <0.045 ng/mL. 12/23/2017 8:08 PM CDT [facility] Comment: HIGH DOSES OF BIOTIN MAY INTERFERE WITH THIS TEST RESULT. CORRELATION TO CLINICAL HISTORY AND PRESENTATION RECOMMENDED. 12/23/2017 7:36 PM CDT Ramila Kat DO LABORATORY Final Result [facility] [address] [facility] [place] [address], * ECG 12-Lead (12/23/2017 6:34 PM CDT) 12/23/2017 6:34 PM CDT Narrative [facility] - 12/23/2017 6:34 PM CDT [facility] [address] ? Test Date: ?2017-12-23 Pat Name: ? VINCENT CORPUS ? Department: ?? 41 ? Room: ? [facility] Gender: ? Male ? Director Data Architecture: ?? RG : ?1970 ? Requested By: RAMILA KAT Order Number: [id number] ? Reading MD: ?? Carlos Fajardo ? Measurements Intervals ?[place] ? Rate: ? 71 ? P: ?22 FL: ? 155 ?QRS: ?34 QRSD: ? 94 ? T: ?1 QT: ? 358 ? QTc: ?389 ? Interpretive Statements SINUS RHYTHM Compared to ECG 11/13/2017 17:43:26 No significant changes Procedure Note Carlos Fajardo MD - 12/23/[address] [facility] Test Date: 2017-12-23 Pat Name: CARLOS KELLY Department: 41 Room: [facility] Gender: Male Director Data Architecture: BERNARDO : 1970 Requested By: RAMILA KAT Order Number: [id number] Reading SONG Fajardo Measurements Intervals [place] Rate: 71 P: 22 FL: 155 QRS: 34 QRSD: 94 T: 1 QT: 358 QTc: 389 Interpretive Statements SINUS RHYTHM Compared to ECG 11/13/2017 17:43:26 No significant changes us Ramila Kat DO ECG ORDERABLES Final Result [facility] * XR CHEST PA+LAT (12/23/2017 6:08 PM CDT) Anatomical Region Laterality Modality Chest Radiographic Katarzyna ging 12/23/2017 6:46 PM CDT Impressions 12/23/2017 6:46 PM CDT =====IMPRESSION:===== ?? 1. ??No acute cardiopulmonary findings. Narrative 12/23/2017 6:46 PM CDT EXAMINATION: Chest X-Ray 2 View EXAM DATE/TIME: 12/23/2017 5:59 PM REASON FOR EXAM: ??chest pain ? COMPARISON: 11/13/2017 TECHNIQUE: PA and lateral views of the chest were obtained. FINDINGS: Heart size is within normal limits. Pulmonary vasculature is within normal limits. There is no large pleural effusion or pneumothorax. There is no focal infiltrate or consolidative change. Procedure Note Ramila Urrutia MD - 12/23/2017 EXAMINATION: Chest X-Ray 2 View EXAM DATE/TIME: 12/23/2017 5:59 PM REASON FOR EXAM: chest pain COMPARISON: 11/13/2017 TECHNIQUE: PA and lateral views of the chest were obtained. FINDINGS: Heart size is within normal limits. Pulmonary vasculature is within normal limits. There is no large pleural effusion orpneumothorax. There is no focal infiltrate or consolidative change. =====IMPRESSION:===== 1. No acute cardiopulmonary findings. us Ramila Kat DO GENERAL IMAGING Final Result * CK (CPK) (12/23/2017 5:37 PM CDT) CPK 185 35 - 232 U/L 12/23/2017 6:04 PM CDT [facility] 12/23/2017 5:37 PM CDT us Ramila Kat DO LABORATORY Final Result [facility] [address] [place] [address], [place] [phone] * CKMB,(MB FRACTION ONLY) (12/23/2017 5:37 PM CDT) [facility] CK-MB 1.7 0.5 - 3.6 NG/ML 12/23/2017 6:04 PM CDT [facility] Comment: HIGH DOSES OF BIOTIN MAY INTERFERE WITH THIS TEST RESULT. CORRELATION TO CLINICAL HISTORY AND PRESENTATION RECOMMENDED. 12/23/2017 5:37 PM CDT Ramila Kat DO LABORATORY Final Result [facility] [address] [place] [address], [place] [phone] * TROPONIN, QUANT (12/23/2017 5:37 PM CDT) [facility] TROPONIN I 0.024 <0.045 ng/mL. 12/23/2017 6:04 PM CDT [facility] Comment: HIGH DOSES OF BIOTIN MAY INTERFERE WITH THIS TEST RESULT. CORRELATION TO CLINICAL HISTORY AND PRESENTATION RECOMMENDED. 12/23/2017 5:37 PM CDT us Ramila Kat DO LABORATORY Final Result [facility] [address] [place] [address], [place] [phone] * (ABNORMAL) COMPREHENSIVE METABOLIC PANEL (12/23/2017 5:37 PM CDT) [facility] GLUCOSE 89 70 - 99 MG/DL 12/23/2017 6:04 PM CDT [facility] BUN 10 7 - 18 MG/DL 12/23/2017 6:04 PM CDT [facility] CREATININE S/P/B 0.86 0.7 - 1.3 MG/DL 12/23/2017 6:04 PM T [facility] SODIUM S/P/B 143 136 - 145 MMOL/L 12/23/2017 6:04 PM [facility] POTASSIUM S/P/B 4.1 3.5 - 5.1 MMOL/L 12/23/2017 6:04 PM T [facility] Comment:SLIGHT HEMOLYSIS, RE SULT MAY BE AFFECTED. CHLORIDE S/P/B 109(H) 100 - 108 MMOL/L 12/23/2017 6:04 PM T [facility] CO2 24.5 21 - 32 MMOL/L 12/23/2017 6:04 PM [facility] CALCIUM S/P/B 9.4 8.5 - 10.1 MG/DL 12/23/2017 6:04 PM T [facility] BILIRUBIN TOTAL S/P/B 0.8 0.2 - 1.2 MG/DL 12/23/2017 6:04 PM [facility] TOTAL PROTEIN S/P/B 8.3(H) 6.4 - 8.2 G/DL 12/23/2017 6:04 PM [facility] ALBUMIN S/P/B 4.0 3.4 - 5.0 G/DL 12/23/2017 6:04 PM T [facility] AST 40(H) 15 - 37 U/L 12/23/2017 6:04 PM [facility] Comment:SLIGHT HEMOLYSIS, RE SULT MAY BE AFFECTED. ALT 42 16 - 60 U/L 12/23/2017 6:04 PM T [facility] ALKALINE PHOSPHATASE S/P/B 82 50 - 136 U/L 12/23/2017 6:04 PM T [facility] ANION GAP 13.6 8 - 20 MMOL/L 12/23/2017 6:04 PM CDT [facility] BUN CREATININE RATIO 11.7 6 - 26 12/23/2017 6:04 PM CDT [facility] A/G RATIO 0.9(L) 1.0 - 2.0 RATIO 12/23/2017 6:04 PM CDT [facility] EGFR NON-AFR. AMER. >90 >90 ML/MIN/1.7 3 M2 12/23/2017 6:04 PM CDT [facility] EGFR AFR. AMER. >90 >90 ML/MIN/1.7 3 M2 12/23/2017 6:04 PM CDT [facility] Comment: NOTE: eGFR is not calculated for patients <18 years of age. This is an estimated GFR (CKD EPI) and should not be used for calculating drug doses. 12/23/2017 5:37 PM CDT Ramila Kat DO LABORATORY Final Result [facility] [address] [place] [address], * (ABNORMAL) CBC W/DIFF AUTOMATED (12/23/2017 5:37 PM CDT) WBC 5.7 4.8 - 10.8 x10'3/uL 12/23/2017 5:48 PM CDT [facility] RBC 6.17(H) 4.70 - 6.10 x10'6/uL 12/23/2017 5:48 PM CDT [facility] HGB 12.9(L) 14.0 - 18.0 G/DL 12/23/2017 5:48 PM CDT [facility] HCT 43.2 43.0 - 54.0 % 12/23/2017 5:48 PM CDT [facility] MCV 70.0(L) 80.0 - 94.0 FL 12/23/2017 5:48 PM CDT [facility] MCH 20.9(L) 27.0 - 31.0 PG 12/23/2017 5:48 PM CDT [facility] MCHC 29.9(L) 32.0 - 36.0 G/DL 12/23/2017 5:48 PM CDT [facility] RDW 19.0(H) 11.5 - 14.5 % 12/23/2017 5:48 PM CDT [facility] PLT 246 130 - 400 x10'3/uL 12/23/2017 5:48 PM CDT [facility] MPV 9.1(L) 9.3 - 12.2 FL 12/23/2017 5:48 PM CDT [facility] BASOPHILS 0.7 0.0 - 1.0 % 12/23/2017 6:16 PM CDT [facility] EOSINOPHILS 2.6 1.0 - 3.0 % 12/23/2017 6:16 PM CDT [facility] NEUTROPHILS % 56.4 43.0 - 65.0 % 12/23/2017 6:16 PM T [facility] LYMPHOCYTES % 33.7 20.0 - 46.0 % 12/23/2017 6:16 PM CDT [facility] MONOCYTES % 6.2 5.0 - 12.0 % 12/23/2017 6:16 PM CDT [facility] IMMATURE GRANS % 0.4 0.0 - 1.0 % 12/23/2017 6:16 PM CDT [facility] RBC MORPHOLOGY SLIDE REVIEWED 2017 6:16 PM CDT [facility] Comment: 2+ ANISOCYTOSIS 2+ MICROCYTES 1+ POIKILOCYTOSIS 1+ OVALOCYTES PATHOLOGIST COMMENT PATHOLOGIST REVIEW ADDED TO REPORT 12/24/2017 5:42 PM CDT [facility] Comment: [id number]. SOME HYPOCHROMIC RBC'S SUGGESTIVE OF IRON DEFICIENCY. ??SUGGEST IRON STUDIES. WBC'S AND PLATELETS UNREMARKABLE. ??AGREE WITH WBC DIFFERENTIAL. REVIEWED BY BERTO VICTORIA M.D., PATHOLOGIST. 12/23/2017 5:37 PM CDT Ramila Kat DO LABORATORY Edited Result - Final [facility] [address] [place] [address], [place] [phone] documented in this encounter Visit Diagnoses Diagnosis Sore throat- Primary Acute pharyngitis Elevated blood pressure reading Elevated blood pressure reading without diagnosis of hypertension Anxiety neurosis Anxiety state, unspecified documented in this encounter Active and Recently Administered Medications Times are shown in CDT. Scheduled Medication Order 12/21/2017 12/22/2017 12/23/2017 aspirin chewable tablet 324 mg 324 mg, Oral, Once, 1 dose, On Radha 12/23/17 at 1730, If not given by EMS or taken immediately prior to arrival 1730 (Canceled Entry - Provider: Automatic Discharge Provider - Comment: Automatically canceled at discontinue of medication order) documented in this encounter
--- OUTSIDE RECORDS SUMMARY | 2024-09-10 03:49 | XMS_ITS | Encounter Summary ---
Author Organization [facility] Address [address] [place] [address]. [place] [address] Care Team Providers Care Dollyman Name Role Phone Md Generic Conversion Primary [...] Department Care Team (Latest Contact Info) Description 06/09/2014 Abstract [facility] Md Generic MD Ivis Social History Tobacco Use Types Packs/Day Years [...] Procedure Name Priority Date/Time Associated Diagnosis Comments PRV ONLY-RESTING TWELVE LEAD EKG Routine 06/09/2014 12:06 PM CDT documented in this encounter Results * PRV ONLY-RESTING TWELVE LEAD EKG (06/09/2014 12:06 PM CDT) 06/09/2014 12:0 6 PM CDT 06/09/2014 12:06 PM CDT Narrative [facility] TO EPIC CONVERSION - 06/11/2014 8:47 AM CDT ?? CARLOS KELLY MD: PHIL PICHARDO MD ?? ACCT: [id number] ?? ADMIT/SERVICE DATE: 06/09/14 DISCHARGE DATE: 06/09/14 ?? : 1970 PT TYPE: DEP ER ?? SEX: M [facility]D SITE: [facility] ?. IQRAS NATALIA ?[address], [place], [place] ?TEST DATE: ?2014-06-09 ?? PAT NAME: ? VINCENT CORPUS ? DEPARTMENT: CARD ?? 41 ? ROOM: ? GENDER: ? MALE ? PASTRY MIXER: ?? AB ?? : ?1970 ? REQUESTED BY: PHIL PICHARDO ?? ORDER NUMBER: [id number] ?READING MD: ?? DOUGIE JARRELL ?MEASUREMENTS ?? INTERVALS ?AXIS ? RATE: ? 73 ? P: ?8 ?? MI: ? 152 ?QRS: ?30 ?? QRSD: ? 102 ?T: ?15 ?? QT: ? 352 ? QTC: ?389 ?INTERPRETIVE STATEMENTS ?? SINUS RHYTHM ?? WITHIN NORMAL LIMITSCOMPARED TO ECG 12/29/2013 12:12:06 ?? NO SIGNIFICANT CHANGES ?? ELECTRONICALLY SIGNED BY DOUGIE VIEYRA AT 06-09-14 12:06:58 CDT ? Procedure Note Alina Russell MD - 07/06/2018 CARLOS KELLY ORDERING MD: PHIL PICHARDO MD ACCT: [id number] ADMIT/SERVICE DATE: 06/09/14 DISCHARGE DATE: 06/09/14 : 1970 PT TYPE: DEP ER SEX: M ORD SITE: [address] TEST DATE: 2014-06-09 PAT NAME: CARLOS KELLY DEPARTMENT: CARD 41 ROOM: GENDER: MALE PASTRY MIXER: AB : 1970 REQUESTED BY: PHIL PICHARDO ORDER NUMBER: [id number] READING MD: DOUGIE VIEYRA MEASUREMENTS INTERVALS AXIS RATE: 73 P: 8 MI: 152 QRS: 30 QRSD: 102 T: 15 QT: 352 QTC: 389 INTERPRETIVE STATEMENTS SINUS RHYTHM WITHIN NORMAL LIMITSCOMPARED TO ECG 12/29/2013 12:12:06 NO SIGNIFICANT CHANGES ELECTRONICALLY SIGNED BY DOUGIE VIEYRA AT 06-09-14 12:06:58 CDT us Generic Conversion Md RUSSELL ECHO Final R esult [facility] TO EPIC CONVERSION documented in this encounter Visit Diagnoses Not on filedocumented in this encounter Care Teams Dollyman Relationship Specialty Start Date End Date Md Generic Conversion, PCP - General 02/20/17 Md Generic Conversion, PCP - General 10/11/16 7 Md Generic Conversion, PCP - General 07/19/16 Md Generic Conversion, PCP - General 05/06/16 Md, Generic Conversion, PCP - General 01/23/16 Md, Generic Conversion, PCP - General 11/27/15 Md, Generic Conversion, PCP - General 11/13/15 Md, Generic Conversion, PCP - General 09/20/15 6 Md, Generic Conversion, PCP - General 09/10/15 6 Md, Generic Conversion, PCP - General 02/14/1509/09 Md, Generic Conversion, PCP - General 12/11/14 5 Md, Generic Conversion, PCP - General 09/10/14 Md Generic Conversion, PCP - General 07/30/1409/09 Md Generic Conversion, PCP - General 06/09/1407/29 documented as of this encounter
--- OUTSIDE RECORDS SUMMARY | 2024-09-10 03:49 | XMS_ITS | Encounter Summary ---
Author Organization [facility] Address [address] [place] [address]. [place] [address] Care Team Providers Care Glass Smoother Name Role Phone Md Generic Conversion Primary [...] Md Generic Conversion Primary Care Provider Unavailable Balta Costello MD Primary Care Provider Unavaila ble Encounter Details Date Type Department Care Team (Latest Contact Info) Description 04/02/2014 Abstract [facility] Social History Tobacco Use Types Packs/Day Years Used Date Smoking Tobacco: Never Assessed Sex and Gender Information Value Date Recorded Sex Assigned at Not on file Legal Sex Male 10:39 PM CDT Gender Identity Not on file Sexual Orientation Not on file documented as of this encounter Progress Notes * Alina Langston Md, MD - 04/02/2014 1:38 PM CDT Message Message: Patient called into clinic with C/O Diverticulitis at this time. Patient states he has HX of diagnosis and C/O abdominal cramping and discomfort. Patient states he has no fever but is fatigued. MD notified. Patient to be evaluated by MD if patients symptoms persists. Signatures Electronically signed by : Angi Turner, ; Apr 02 2014 1:40PM [employer]IDE [employer] (Author) documented in this encounter Plan of Treatment Not on file documented as of this encounter Visit Diagnoses Not on filedocumented in this encounter Care Teams Glass Smoother Relationship Specialty Start Date End Date Md Generic Conversion, PCP - General 02/20/17 Md Generic Conversion, PCP - General 10/11/16 7 Md, Generic Conversion, PCP - General 07/19/16 Md, Generic Conversion, PCP - General 05/06/16 Md, [...] Md, Generic Conversion, PCP - General 09/10/14 Md, Generic Conversion, PCP - General 07/30/1409/09 Md Generic Conversion, PCP - General 06/09/1407/29 Balta Csotello, PCP - General 02/02/14 06/08/14 documented as of this encounter
--- OUTSIDE RECORDS SUMMARY | 2024-09-10 03:49 | XMS_ITS | Encounter Summary ---
Author Organization [facility] Address [address] [place] [address]. [place] [phone] [place], [place] [id number] Care Team Providers Care Master Control Operator Name Role Phone Md Generic Conversion [...] Md, Generic Conversion Primary Care Provider Unavailable Md [...] Care Team (Late st Contact Info) Description 04/23/2014 Abstract [facility] Family Medicine [address], [address] [place] [address] Md Generic MD Ivis Social History Tobacco [...] on filedocumented in this encounter Care Teams Master Control Operator Relationship Specialty Start Date End Date [...] Conversion, MD PCP - General 12/11/14 5 Md, Generic Conversion, MD PCP - General 09/10/14 Md, Generic Conversion, MD PCP - General 07/30/1409/09 Md, Generic Conversion, MD PCP - General 06/09/1407/29 Balta Costello, PCP - General 02/02/14 06/08/14 documented as of this encounter
--- OUTSIDE RECORDS SUMMARY | 2024-09-10 03:49 | XMS_ITS | Encounter Summary ---
Author Organization [facility] Address [address] [place] [address]. [place] [address] Care Team Providers Care Senior Analyst Name Role Phone Alina Christensen MD Primary Care Provider Unavailable Alina Christensen MD Primary Care Provider Unavailable Alina Christensen MD Primary Care Provider Unavailable Encounter Details Date Type Department Care Team (Latest Contact Info) Description 07/29/2016 Abstract [facility] Social History Tobacco Use Types [...] on filedocumented in this encounter Care Teams Senior Analyst Relationship Specialty Start Date End Date Alina Christensen MD PCP - General 02/20/17 Alina Christensen MD PCP - General 10/11/16 7 Alina Christensen MD PCP - General 07/19/16 documented as of this encounter
--- OUTSIDE RECORDS SUMMARY | 2024-09-10 03:49 | XMS_ITS | Encounter Summary ---
Author Organization [facility] Address [address] [place] [address]. [place] [phone] [place] [address] Care Team Providers Care Development System Efficiency Manager Name Role Phone Md Generic Conversion Primary [...] Department Care Team (Latest Contact Info) Description 03/28/2014 Abstract [facility] Medical Group Social History Tobacco Use [...] on filedocumented in this encounter Care Teams Development System Efficiency Manager Relationship Specialty Start Date End Date Md Generic ConversionMD PCP - General 02/20/17 Md Generic ConversionMD PCP - General 10/11/16 7 Md Generic [...] PCP - General 07/30/1409/09 , Generic Conversion, PCP - General 06/09/1407/29 Balta Costello, PCP - General 02/02/14 06/08/14 documented as of this encounter
--- OUTSIDE RECORDS SUMMARY | 2024-09-10 03:49 | XMS_ITS | Encounter Summary ---
Author Organization [facility] Address [facility]ly [facility]. [place] [phone] [place] [address] Care Team Providers Care Clipper Automatic Name Role Phone Md Generic Conversion Primary [...] Department Care Team (Latest Contact Info) Description 10/30/2015 Abstract [facility] Social History Tobacco Use Types [...] on filedocumented in this encounter Care Teams Clipper Automatic Relationship Specialty Start Date End Date Md Generic ConversionMD PCP - General 02/20/17 Md Generic Conversion, PCP - General 10/11/16 7 Md Generic Conversion, PCP - General 07/19/16 Md Generic Conversion, PCP - General 05/06/16 Md, Generic Conversion, MD PCP - General 01/23/16 Md Generic Conversion, PCP - General 11/27/15 Md Generic Conversion, MD PCP - General 11/13/15 Md Generic Conversion, PCP - General 09/20/15 6 documented as of this encounter
--- OUTSIDE RECORDS SUMMARY | 2024-09-10 03:49 | XMS_ITS | Encounter Summary ---
Author Organization [facility] Address [address] [place] [address]. [place] [phone] [place] [address] Care Team Providers Care Yeast Pumper Name Role Phone Unavailable Primary Care Provider Unavailabl e Reason for Visit * Reason Comments Lab Test Encounter Details Date Type Department Care Team (Late st Contact Info) Description 12/28/2017 6:15 PM CDT - 12/28/2017 8:03 PM CDT Emergency [facility] [place] [address] Mikala Courtney FNP-BC Lab Test Discharge Disposition: Home or Self Care (Routine [...] Sign Reading Time Taken Comments Blood Pressure 142/93 12/28/2017 7:11 PM CDT Pulse 77 12/28/2017 7:11 PM CDT Temperature 36.5 ??C (97.7 ??F) 12/28/2017 6:13 PM CD T Respiratory Rate 16 12/28/2017 7:11 PM CDT Oxygen Saturation 95% 12/28/2017 7:11 PM CDT Inhaled Oxygen Concentration - - Weight 128.4 kg (283 lb) 12/28/2017 6:13 PM CDT Height 188 cm (6' 2 ) 12/28/2017 6:13 PM CDT Body Mass Index 36.34 12/28/2017 6:13 PM CDT documented in this encounter Discharge Instructions * Discharge Instructions* RAINA Dove - 12/28/2017 7:15 PM CDT Images from the original note were not included. You will need to see Dr. Miller as soon as possible to establish care as a new patient. This will allow you to have an iron panel, thyroid studies, hemoglobin A1C for diabetes, and cholesterol panel. You may need to do additional lab work depending on what he feels is necessary. The urgent care changed your prescriptions to the [facility] in [place] as requested. Please crop picker those medications and take them as prescribed. Patient Education Anemia Caused by Low Iron Discharge Instructions, Adult About this topic Your body needs iron for many functions. It is a mineral and you can find it in every cell of the body. Your body uses iron to make red blood cells. The red blood cells then carry oxygen to all partsof our body. Anemia is when the body does not have enough red blood cells. What care is needed at home? ?? Ask your doctor what you need to do when you go home. Make sure you ask questions if you do not understand what the doctor says. This way you will know what you need to do. ?? Feeling tired is a sign of this health problem. You may need to rest or sleep more often. It maytake some time until the iron level in your body returns to normal. ?? You may feel coldness in your hands or feet. You can wear heavier socks or shoes or cover your feet with a blanket while you are resting. What follow-up care is needed? ?? Your doctor may ask you to make visits to the office to check on your progress. Be sure to keep these visits. ?? You may need to have some blood tests. ?? If your red blood cell counts are too low, you may need to get a blood transfusion. ?? You may need to have tests to see if your body is absorbing all the iron you are taking in. ?? You may need other tests to see if you are bleeding slowly from inside your body. What drugs may be needed? The doctor may order drugs to: ?? Replace the iron in your body. These are iron supplements. ?? Help your body absorb iron. This is vitamin C. Take your drug as ordered by your doctor. Will physical activity be limited? No, but you should rest if you are feeling weak or tired. What changes to diet are needed? Eat food rich in iron, such as: ?? Meats and proteins like: Eggs (especially egg yolks), liver, lean red meat (especially beef), oysters, clams, poultry, salmon, tuna, tofu ?? Breads and grains like: Iron-fortified breads and cereals, whole grains ?? Fruits like: Dried fruits such as prunes, raisins, and apricots; prune juice ?? Vegetables like: Spinach and other dark green leafy vegetables; dried beans; white, red, and baked beans; soybeans; peas; lentils; chickpeas Also eat foods rich in vitamin C such as: ?? Fruits like: Oranges, tangerines, kiwi, strawberries, cantaloupe ?? Vegetables like: Broccoli, peppers, tomatoes, cabbage, potatoes What can be done to prevent this health problem? ?? Make sure you eat foods rich in iron each day. Also, make sure you are getting vitamin C to helpthe body take up iron. ?? Ask if you should take an iron supplement. When do I need to call the doctor? ?? Blood in the stool. Blood may be bright red, dark red, or be mixed in with the stool making it look like black tar. ?? Chest pain or very fast heartbeat ?? Having a hard time breathing ?? You are not feeling better in 2 to 3 days or you are feeling worse Helpful tips ?? Drink 6 to 8 glasses of water each day. Avoid coffee, tea, or soda. ?? Do not take more drugs than ordered. Large amounts of iron can be harmful. Take extra iron only as ordered by your doctor. Teach Back: Helping You Understand The Teach [...] ?? I can tell you about my condition. ?? I can tell you what changes I need to make with my diet or drugs. ?? I can tell you what I will do if I have blood in my stool or if my stool is black or tarry looking. Where can I learn more? National Heart Lung and Blood [place] http://www.nhlbi.nih.gov/health/health-topics/topics/yulisa/ Last Reviewed Date 2017-02-23 Consumer Information Use and Disclaimer This information [...] advice that is right for you. Copyright Patient Education Good Food Sources of Iron About this topic Iron is a mineral needed to help your body work the right way. It is found in each cell of the bodyand does many things. One of its most important jobs is to help the red blood cells in your blood carry oxygen to all of your tissues and body parts. If you do not have enough iron you will not have enough red blood cells. This is called iron-poor blood or anemia. Low iron in your blood and body isalso called iron deficiency. Signs of low iron are always being tired and weak and looking pale. Your doctor will work with you to raise the level of iron in your blood. You may be told to eat foods with a higher level of iron. Your doctor may also give you drugs with iron in them. What will the results be? Your doctor will talk to you about your need for iron. You can also talk about what changes you canexpect when you are getting more iron. What changes to diet are needed? Ask to speak to a dietitian who can help you choose the best food sources of iron. When is this diet used? Your doctor will order this diet if you: ?? Are or ?? Have blood loss. This may come from heavy menstrual periods, or stomach or bowel problems. Sometimes, it is because you often donate blood. ?? Are not getting enough iron in your diet. This may happen if you follow a vegetarian diet. ?? Have low iron levels in your blood. This may be due to eating food or taking drugs that lower iron absorption. Who should not use this diet? If you have illnesses that cause too much iron in your body. What foods are good to eat? Healthy foods which give you more iron, like: ?? Red meat ?? Liver ?? Oysters, clams, shrimp, and sardines ?? Egg yolks ?? Chicken and turkey giblets ?? Tomato paste ?? Cereal and grains with iron added ?? Dark leafy greens, like spinach and collards ?? Tofu ?? Beans ?? Dried fruit, like prunes and raisins Eat foods with lots of vitamin C when you eat iron-rich foods. This will help your body take in andabsorb the iron. These vitamin C foods are: ?? Oranges and orange juice ?? Grapefruit and grapefruit juice ?? Tomato juice ?? Fresh fruits ?? Posey peppers ?? Broccoli ?? Cauliflower ?? Brussel sprouts ?? Sweet potatoes Your doctor will talk with you about how much iron you should have each day. What foods should be limited or avoided? The body may not absorb as much iron from your food if you drink black or pekoe tea. Limit drinkingthese with meals. Drugs for heartburn may also limit how much iron your body takes in. Talk to yourdoctor if you take these kinds of drugs. What problems could happen? ?? Low iron levels can lead to iron deficiency anemia. Signs include lack of energy, problems breathing, headache, low mood, or feeling dizzy or weak. ?? Too much iron may lead to iron poisoning. Signs include fatigue, joint or belly pain, irregular heart rate, hair loss, changes in skin color, and organ damage. This can lead to diabetes, heart disease, arthritis, liver disease, and liver cancer. When do I need to call the doctor? Health problem is not better or you are feeling worse Where can I learn more? [employer] [place] http://www.redcrossblood.org/maisf-quiqs-urbvw/winula-msx-czokiyjd/wyym-dwpl-pzw ds Kids Health http://kidshealth.org/en/parents/iron.html?ref=search# Last Reviewed Date 2015-12-12 Consumer Information Use and Disclaimer This information [...] right for you. Copyright Copyright ?? 2018 [employer], [employer]. and its affiliates and/or licensors. All rights reserved. Copyright ?? 2018 [employer], [employer]. and its affiliates and/or licensors. All rights reserved. documented in this encounter Medications at Time [...] by mouth 2 (two) times daily for 7 days. 14 tablet 12/28/2017 8 atenolol 100 MG tablet Take 100 mg by mouth daily. 9 escitalopram 20 MG tablet Take 40 mg by mouth daily. 9 ferrous sulfate, 65 mg elemental, 325 (65 FE) MG tablet Take 1 tablet (325 mg total) by mouth daily with breakfast for 30 days. 30 tablet 12/28/2017 8 fluticasone propionate (FLONASE) 50 MCG/ACT nasal spray 2 sprays by Nasal route daily. 16 g 12/28/2017 8 fluticasone propionate 50 MCG/ACT nasal spray 1 spray by Nasal route daily. 9 documented as of this encounter ED Notes * Leslie Vasquez RN - 12/28/2017 8:02 PM CDT POC 85 AT THIS TIME * RAINA Dove - 12/28/2017 7:06 PM CDT Images from the original note were not included. History Chief Complaint Patient presents with ??? Lab Test Carlos Mcgee is a 47-year-old male who presented to the ED with no specific complaint. He spent 15 minutes discussing the poor care that was provided to him by the oral surgeon who recently did an extraction for him. Pt eventually stated that he needs a PCP and is concerned because he hasn't beenable to check his blood sugar. Pt states that he has had 3 opinions and is unsure if he actually has diabetes or not. Pt also wants to get annual lab work done with a PCP. Past Medical History: Diagnosis Date ??? Anxiety ??? Depressed ??? Hypertension Prior to Admission medications Medication Sig Start Date End Date Taking? Authorizing Provider ferrous sulfate, 65 mg elemental, 325 (65 FE) MG tablet Take 1 tablet (325 mg total) by mouth dailywith breakfast for 30 days. 12/28/17 01/27/18 Yes RAINA Dove albuterol sulfate HFA 108 (90 BASE) MCG/ACT inhaler Inhale 2 puffs into the lungs every 6 (six) hours as needed for Wheezing. Doc Abstract alprazolam 2 MG tablet Take 2 mg by mouth nightly as needed. Doc Abstract amoxicillin 875 MG tablet Take 1 tablet (875 mg total) by mouth 2 (two) times daily for 7 days. 12/28/17 01/04/18 JANE Duke atenolol 100 MG tablet Take 100 mg by mouth daily. Doc Abstract escitalopram 20 MG tablet Take 20 mg by mouth daily. Doc Abstract fluticasone propionate (FLONASE) 50 MCG/ACT nasal spray 2 sprays by Nasal route daily. 12/28/17 12/28/18 JANE Duke fluticasone propionate 50 MCG/ACT nasal spray 1 spray by Nasal route daily. Doc Abstract Past Surgical History: Procedure Laterality Date ??? CHOLECYSTECTOMY Family History Problem Relation Age of Onset ??? Cancer Mother ??? Stroke Father Social History Substance Use Topics ??? Smoking status: Never Smoker ??? Smokeless tobacco: Never Used ??? Alcohol use No Review of Systems HENT: Positive for dental problem (recent extraction). All other systems reviewed and are negative. Physical Exam Filed Vitals: 12/28/17 1813 12/28/17 1911 BP: (!) 147/99 (!) 142/93 Pulse: 72 77 Resp: 18 16 Temp: 97.7 ??F (36.5 ??C) TempSrc: Oral SpO2: 99% 95% Weight: 128.4 kg (283 lb) Height: 6' 2 (1.88 m) Physical Exam Constitutional: He is oriented to person, place, and time. He appears well- developed and well-nourished. HENT: Head: Normocephalic and atraumatic. Right Ear: External ear normal. Left Ear: External ear normal. Nose: Nose normal. Mouth/Throat: Uvula is midline, oropharynx is clear and moist and mucous membranes are normal. Abnormal dentition. No dental abscesses. No posterior oropharyngeal edema or posterior oropharyngeal erythema. Eyes: Conjunctivae and EOM are normal. Pupils are equal, round, and reactive to light. Neck: Normal range of motion. Neck supple. Cardiovascular: Normal rate, regular rhythm, normal heart sounds and intact distal pulses. Pulmonary/Chest: Effort normal and breath sounds normal. Abdominal: Soft. Bowel sounds are normal. Musculoskeletal: Normal range of motion. Neurological: He is alert and oriented to person, place, and time. Skin: Skin is warm and dry. Psychiatric: He has a normal mood and affect. His behavior is normal. Thought content normal. Vitals reviewed. Labs Reviewed POCT GLUCOSE - WEIR DOCKED DEVICE ED Course Procedures Workup Notes Pt instructed that the ER is not able to run annual labs. The ER does emergent lab work. Based on his CBC from (12/23/17), it is likely that he has iron deficiency anemia. Ferrous sulfate supplementation ordered. Pt to follow up with new PCP, Dr. Miller, as noted on discharge instructions. MDM Number of Diagnoses or Management Options Amount and/or Complexity of Data Reviewed Clinical lab tests: ordered and reviewed Patient Progress Patient progress: stable SNOMED CT(R) 1. Iron deficiency anemia IRON DEFICIENCY ANEMIA 2. History of dental surgery HISTORY OF SURGICAL PROCEDURE ON MOUTH Disposition: Discharge RAINA DOVE FNP 12/28/171950 * Ladny Veras RN - 12/28/2017 6:14 PM CDT Pt report he wants to get his iron level checked. Pt report he has a hx of low [facility] [place] [facility]. documented in this encounter Plan of Treatment Not on file documented as of this encounter Procedures Procedure Name Priority Date/Time Associated Diagnosis Comments POCT GLUCOSE - WEIR DOCKED DEVICE STAT 12/28/2017 8:03 PM CDT POCT GLUCOSE - WEIR DOCKED DEVICE Routine 12/28/2017 7:57 PM CDT POCT GLUCOSE - WEIR DOCKED DEVICE Routine 12/28/2017 7:24 PM CDT documented in this encounter Results * POCT glucose (12/28/2017 8:03 PM CDT) GLUCOSE WHOLE BLOOD 85 70 - 100 mg/dL [facility] Mikala PARIS-BC POCT ORDERABLES - DEVICE Final Result [facility] [address] [place] [address], [place] [phone] * POCT glucose (12/28/2017 7:57 PM CDT) GLUCOSE POC 85 70 - 99 mg/dL 12/29/2017 3:46 AM CDT [facility] ORDERS INTERFACE 12/28/2017 7:57 PM CDT us Mikala Lynn Roz ENTERPRISE MOBILITY ARCHITECT-BC POCT ORDERABLES - DEVICE Final Result [facility] ORDERS INTERFACE US * POCT glucose (12/28/2017 7:24 PM CDT) [facility] GLUCOSE POC 90 70 - 99 mg/dL 12/29/2017 3:46 AM CDT [facility] ORDERS INTERFACE 12/28/2017 7:24 PM CDT us Mikala Lynn Roz ENTERPRISE MOBILITY ARCHITECT-BC POCT ORDERABLES - DEVICE Final Result [facility] ORDERS INTERFACE US documented in this encounter Visit Diagnoses Diagnosis Iron deficiency anemia- Primary Iron deficiency anemia, unspecified History of dental surgery documented in this encounter
--- OUTSIDE RECORDS SUMMARY | 2024-09-10 03:49 | XMS_ITS | Encounter Summary ---
Author Organization [facility] Address [address] [place] [address]. [place], [place] [id number] [place] [id number] Care Team Providers Care Mixer Operator Vacuum Pan Salt Name Role Phone Md Generic Conversion Primary Care Provider Unavailable Md Generic Conversion Primary Care Provider Unavailable Md Generic Conversion Primary Care Provider Unavailable Md Generic Conversion Primary Care Provider Unavailable Md Generic Conversion Primary Care Provider Unavailable Encounter Details Date Type Department Care Team (Late st Contact Info) Description 01/23/2016 Emergency [facility] [place] [address] Good Veras MD Social History Tobacco Use Types Packs/Day Years [...] Name Priority Date/Time Associated Diagnosis Comments URINALYSIS WI REFLEX TO CULTURE STAT 01/23/2016 9:49 PM CDT COMPREHENSIVE METABOLIC PANEL STAT 01/23/2016 9:49 PM CDT CBC W/DIFF AUTOMATED STAT 01/23/2016 9:49 PM CDT TROPONIN, QUANT STAT 01/23/2016 9:49 PM CDT LIPASE STAT 01/23/2016 9:49 PM CDT documented in this encounter Results * TROPONIN, QUANT (01/23/2016 9:49 PM CDT) TROPONIN I <0.30 <0.30 ng/mL 01/23/2016 11:09 PM CDT [facility] SERUM OR PLASMA SPECIMEN / Unknown 01/23/2016 9:49 PM CDT 01/23/2016 10:52 PM CDT us Generic Conversion Md [facility] Final R esult [facility] [address] [place] [address], * (ABNORMAL) URINALYSIS WI REFLEX TO CULTURE (01/23/2016 9:49 PM CDT) SOURCE (FLUID) URINE CLEAN CATCH 01/23/2016 9:19 PM CDT [facility] COLOR (U) YELLOW 01/23/2016 10:12 PM CDT [facility] TRANSPARENCY CLEAR 01/23/2016 10:12 PM CDT [facility] SPECIFIC GRAVITY (U) 1.017 1.001 - 1.030 01/23/2016 10:12 PM CDT [facility] U PH 6.0 5.0 - 9.0 01/23/2016 10:12 PM CDT [facility] LEUKOCYTES (U) NEGATIVE NEGATIVE 01/23/2016 10:12 PM CDT [facility] NITRITES NEGATIVE NEGATIVE 01/23/2016 10:12 PM CDT [facility] PROTEIN (U) 30(H) <30 MG/DL 01/23/2016 10:12 PM CDT [facility] URINE GLUCOSE NEGATIVE NEGATIVE MG/DL 01/23/2016 10:12 PM CDT [facility] KETONES MG/DL (U) NEGATIVE NEGATIVE MG/DL 01/23/2016 10:12 PM CDT [facility] UROBILINOGEN NEGATIVE NEGATIVE MG/DL 01/23/2016 10:12 PM CDT [facility] BILIRUBIN (U) NEGATIVE NEGATIVE MG/DL 01/23/2016 10:12 PM CDT [facility] BLOOD (U) SMALL(A) NEGATIVE 01/23/2016 10:12 PM CDT [facility] CULTURE & SENSITIVITY INDICATED? CULTURE IS NOT INDICATED 01/23/2016 10:12 PM CDT [facility] WBC/HPF <1 <6 /HPF 01/23/2016 10:12 PM CDT [facility] RBC/HPF 2 <6 /HPF 01/23/2016 10:12 PM CDT [facility] 01/23/2016 9:49 PM CDT 01/23/2016 9:57 PM CDT us Generic Conversion Md [facility] URINE ORDERABLES Final Result Performing Organization Address City/[facility]/ZIP Co de Phone Number [facility] [address] [place] [address], * LIPASE (01/23/2016 9:49 PM CDT) LIPASE 52 13 - 60 U/L 01/23/2016 10:25 PM CDT [facility] SERUM OR PLASMA SPECIMEN / Unknown 01/23/2016 9:49 PM CDT 01/23/2016 9:58 PM CDT us Generic Conversion Md [facility] Final R esult Performing Organization Address City/[facility]/ZIP Co de Phone Number [facility] [address] [place] [address], [place] [phone] * (ABNORMAL) COMPREHENSIVE METABOLIC PANEL (01/23/2016 9:49 PM CDT) GLUCOSE 119(H) 70 - 99 mg/dL 01/23/2016 10:25 PM CDT [facility] BUN 9 8 - 23 mg/dL 01/23/2016 10:25 PM CDT [facility] CREATININE S/P/B 0.78 0.70 - 1.20 mg/dL 01/23/2016 10:25 PM CDT [facility] SODIUM S/P/B 141 136 - 145 mmol/L 01/23/2016 10:25 PM CDT [facility] POTASSIUM S/P/B 3.3(L) 3.5 - 5.1 mmol/L 01/23/2016 10:25 PM CDT [facility] CHLORIDE S/P/B 101 98 - 107 mmol/L 01/23/2016 10:25 PM CDT [facility] CO2 28 22 - 29 mmol/L 01/23/2016 10:25 PM CDT [facility] BILIRUBIN TOTAL S/P/B 0.9 0.2 - 1.2 mg/dL 01/23/2016 10:25 PM CDT [facility] CALCIUM S/P/B 9.2 8.6 - 10.2 mg/dL 01/23/2016 10:25 PM CDT [facility] ALKALINE PHOSPHATASE S/P/B 77 40 - 129 IU/L 01/23/2016 10:25 PM CDT [facility] AST 66(H) 0 - 40 IU/L 01/23/2016 10:25 PM CDT [facility] TOTAL PROTEIN S/P/B 8.1 6.4 - 8.3 g/dL 01/23/2016 10:25 PM CDT [facility] ALBUMIN S/P/B 4.4 3.5 - 5.2 g/dL 01/23/2016 10:25 PM CDT [facility] ALT 61(H) 0 - 41 IU/L 01/23/2016 10:25 PM CDT [facility] GLOBULIN 3.7(H) 2.3 - 3.6 g/dL 01/23/2016 10:25 PM CDT [facility] A/G RATIO 1.2 1.0 - 2.0 01/23/2016 10:25 PM CDT [facility] ANION GAP 15 8 - 20 01/23/2016 10:25 PM CDT [facility] EGFR NON-AFR. AMER. >60 >60 mL/min/1.7 3m'2 01/23/2016 10:25 PM CDT [facility] EGFR AFR. AMER. >60 >60 mL/min/1.7 '2 01/23/2016 10:25 PM CDT [facility] Comment: NOTE: eGFR is not calculated for patients <18 years of age. This is an estimated GFR (CKD EPI) and should not be used for calculating drug doses. 01/23/2016 9:49 PM CDT 01/23/2016 9:58 PM CDT us Generic Conversion Md [facility] Final R esult [facility] [address] [place] [address], * (ABNORMAL) CBC W/DIFF AUTOMATED (01/23/2016 9:49 PM CDT) WBC 5.4 4.8 - 10.8 X10'3/uL 01/23/2016 10:21 PM CDT [facility] RBC 5.86 4.70 - 6.10 X10'6/uL 01/23/2016 10:21 PM CDT [facility] HGB 12.0(L) 14.0 - 18.0 g/dL 01/23/2016 10:21 PM CDT [facility] HCT 40.8(L) 43.0 - 54.0 % 01/23/2016 10:21 PM CDT [facility] MCV 69.6(L) 80.0 - 94.0 fL 01/23/2016 10:21 PM CDT [facility] MCH 20.5(L) 27.0 - 31.0 pg 01/23/2016 10:21 PM CDT [facility] MCHC 29.4(L) 32.0 - 36.0 g/dL 01/23/2016 10:21 PM CDT [facility] RDW 19.0(H) 11.5 - 14.5 % 01/23/2016 10:21 PM CDT [facility] PLT 195 130 - 400 X10'3/uL 01/23/2016 10:21 PM T [facility] MPV 9.6 9.3 - 12.2 fL 01/23/2016 10:21 PM CDT [facility] BASOPHILS 0.7 0.0 - 1.0 % 01/23/2016 10:33 PM T [facility] EOSINOPHILS 2.2 1.0 - 3.0 % 01/23/2016 10:33 PM T [facility] NEUTROPHILS % 65.9(H) 43.0 - 65.0 % 01/23/2016 10:33 PM CDT [facility] LYMPHOCYTES % 24.7 20.0 - 46.0 % 01/23/2016 10:33 PM CDT [facility] MONOCYTES % 6.1 5.0 - 12.0 % 01/23/2016 10:33 PM CDT [facility] IMMATURE GRANS % 0.4 0.0 - 1.0 % 01/23/2016 10:33 PM CDT [facility] DIFFERENTIAL TYPE AUTOMATED 01/23/2016 10:33 PM T [facility] RBC MORPHOLOGY 3+ 01/23/2016 10:33 PM CDT [facility] Comment: ANISOCYTOSIS SLIDE REVIEWED 3+ MICROCYTES 2+ HYPOCHROMASIA PATHOLOGIST COMMENT PATHOLOGIST REVIEW ADDED TO REPORT 01/24/2016. 01/24/2016 8:36 PM CDT [facility] Comment: HYPOCHROMIC MICROCYTIC ANEMIA. ??CHANGES MAY BE SEEN IN IRON DEFICIENCY AND/OR THALASSEMIA. WBC'S AND PLATELETS UNREMARKABLE. ??AGREE WITH WBC DIFFERENTIAL. REVIEWED BY BERTO VICTORIA M.D., PATHOLOGIST. 01/23/2016 9:49 PM CDT 01/23/2016 9:58 PM CDT us Generic Conversion Md [facility] Edited Result - Final [facility] [address] [place] [address], documented in this encounter Visit Diagnoses Diagnosis Gastro-esophageal reflux disease without esophagitis Esophageal reflux documented in this encounter Care Teams Mixer Operator Vacuum Pan Salt Relationship Specialty Start Date End Date Md Generic ConversionMD PCP - General 02/20/17 Md Generic ConversionMD PCP - General 10/11/16 7 Md Generic ConversionMD PCP - General 07/19/16 Md Generic ConversionMD PCP - General 05/06/16 Md Generic ConversionMD PCP - General 01/23/16 documented as of this encounter
--- OUTSIDE RECORDS SUMMARY | 2024-09-10 03:49 | XMS_ITS | Encounter Summary ---
Author Organization [facility] Address [facility]ly [facility] [facility] [place] [address] Care Team Providers Care Manager Harbor Name Role Phone Md Generic Conversion Primary [...] Generic Conversion MD Primary Care Provider Unavailable , Generic Conversion Primary Care Provider Unavailable Balta Costello MD Primary Care Provider Unavaila ble Encounter Details Date Type Department Care Team (Latest Contact Info) Description 03/30/2014 Abstract [facility] Alina Christensen MD Social History Tobacco Use Types Packs/Day Years Used Date Smoking Tobacco: Never Assessed Sex and Gender Information Value Date Recorded Sex Assigned at Not on file Legal Sex Male 10:39 PM CDT Gender Identity Not on file Sexual Orientation Not on file documented as of this encounter Progress Notes * Generic Conversion MD Fermin - 03/30/2014 5:06 PM CDT Note Note: ACKNOWLEDGED MLEE Message Recorded as Task Date: 03/28/2014 09:14 AM, Created By: Danika Toure Task Name: Medical Complaint Callback Assigned To: Balta Costello Regarding Patient: Carlos Mcgee, Status: Active Comment: Danika Toure - 28 Mar 2014 9:14 AM TASK CREATED Caller: Self; Medical Complaint; The DM dr jauregui referred patient to is not accepting patients until July. He asked if there was someone else you can refer him to. He also asked for you to call him about his DM. He said he is veryscared that his glucose jumped over 300. Balta Costello - 28 Mar 2014 7:02 PM TASK JHON Woods - can you convey to Mr. Mcgee the following instructions from me: Can you contact the patient with the following plans: 1. for now increase the januvia back to 100 mg daily as this can help to maintain his BS hopefully a little better. 2. If he would like he can try stopping the cipro though I really am not clearly convinced his blood sugar would go high due to this. lets just continue with the nasal sprays at least. 3. Please provide him the numbers to [facility] and [facility] endocrinology and also if there is endocrinology in [facility] so that we can give him several routes to take as far as looking for endocrinologists. 4. Let's monitor as a blood sugar of 300 is high, but also if after 1 hr it goes back down to normal that may be something just to watch. I know i did mention to watch for blood sugars that high thatremain consistently high over 2-3 checks (at least several hours apart!). I would be more concernedwith that than a 1 time value of 300 that does go down. again let's increase the januvia back to 100 for now to see if this helps him better to maintain his sugars. thank you! Peggy Woods - 29 Mar 2014 11:24 AM TASK EDITED Patient did call Dr Mcdowell. No available appt's until July 2014. Gave patient phone number for [facility]ology [phone] [facility] Endo [phone] Peggy Camacho - 29 Mar 2014 11:32 AM TASK EDITED Signatures Electronically signed by : Balta Costello M.D.; Mar 30 2014 5:06PM AD WRITER (Author) documented in this encounter Plan of Treatment Not on file documented as of this encounter Visit Diagnoses Not on filedocumented in this encounter Care Teams Manager Harbor Relationship Specialty Start Date End Date Alina Christensen MD PCP - General 02/20/17 Alina Christensen MD PCP - General 10/11/16 7 Md, Generic Conversion, MD PCP - General 07/19/16 Md, Generic Conversion, MD PCP - General 05/06/16 Md, Generic [...] Md, Generic Conversion, PCP - General 07/30/1409/09 Md, Generic Conversion, PCP - General 06/09/1407/29 Balta Costello, PCP - General 02/02/14 06/08/14 documented as of this encounter
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
--- OUTSIDE RECORDS SUMMARY | 2024-09-10 03:49 | XMS_ITS | Encounter Summary ---
Author Organization [facility] Address [address] [place] [address]. [place] [phone] [place] [address] Care Team Providers Care Plug Saw Operator Name Role Phone Alina Christensen MD Primary Care Provider Unavailable Encounter Details Date Type Department Care Team (Late st Contact Info) Description 07/19/2016 Orders Only [facility] [address] [place] [address] Alina Christensen MD Social History Tobacco Use [...] Procedure Name Priority Date/Time Associated Diagnosis Comments CARDIOLOGY GENERIC 07/19/2016 12 :29 PM AGRONOMY SPECIALIST documented in this encounter Results * CARDIOLOGY GENERIC (07/19/2016 12:29 PM AGRONOMY SPECIALIST) 07/19/2016 12:2 9 PM AGRONOMY SPECIALIST Narrative [facility] - 07/19/2016 12:00 AM CDT ? CARLOS KELLY MD: MART MADRIGAL MD ?? Acct: [id number] ?? Admit/Service Date: 07/19/16 Discharge Date: ?? : 1970 Pt Type: PRE ER ?? Sex: M Ord Site: [facility] ?[address], [place], [place] ?Test Date: ?2016-07-19 ?? Pat Name: ? VINCENT CORPUS ? Department: CARD ?? 41 ? Room: ? Gender: ? Male ? 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 kg ?? : ?1970 ? Requested By: MART MADRIGAL ?? Order Number: [id number] ?Reading MD: ?? John Millan ?Measurements ?? Intervals ?[place] ? Rate: ? 77 ? P: ?7 ?? PA: ? 165 ?QRS: ?28 ?? QRSD: ? 95 ? T: ?-5 ?? QT: ? 357 ? QTc: ?406 ?Interpretive Statements ?? SINUS RHYTHM ?? Compared to ECG 01/23/2016 23:03:09 ?? No significant changes ?? NOMY SPECIALIST ? 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: kg : 1970 Requested By: MART MADRIGAL Order Number: [id number] Reading MD: John Millan Measurements Intervals [place] Rate: 77 P: 7 PA: 165 QRS: 28 QRSD: 95 T: -5 QT: 357 QTc: 406 Interpretive Statements SINUS RHYTHM Compared to ECG 01/23/2016 23:03:09 No significant changes NOMY SPECIALIST us Alina Langston Md, MD [facility] Final Result [facility] documented in this encounter Visit Diagnoses Not on filedocumented in this encounter Care Teams Plug Saw Operator Relationship Specialty Start Date End Date Alina Christensen MD PCP - General 07/19/16 documented as of this encounter
--- OUTSIDE RECORDS SUMMARY | 2024-09-10 03:49 | XMS_ITS | Encounter Summary ---
Author Organization [facility] Address [address] [place] [address]. [place], [place] [address] [place] [address] Care Team Providers Care Clothing Examiner Name Role Phone Unavailable Primary Care Provider Unavailabl e Reason for Visit * Reason Comments Sore Throat Sinus Problem Encounter Details Date Type Department Care Team (Latest Contact Info) Description 12/28/2017 4:49 PM CDT - 12/28/2017 6:06 PM CDT [facility] [address] [place], [place] [address] Germán Dominguez E, JANE [address] [facility] [address] [place] [address] Sore Throat; Sinus Problem Discharge Disposition: Home or Self Care [...] Sign Reading Time Taken Comments Blood Pressure 143/88 12/28/2017 4:53 PM CDT Pulse 67 12/28/2017 4:53 PM CDT Temperature 36.6 ??C (97.8 ??F) 12/28/2017 4:53 PM CD T Respiratory Rate 18 12/28/2017 4:53 PM CDT Oxygen Saturation 96% 12/28/2017 4:53 PM CDT Inhaled Oxygen Concentration - - Weight 128.4 kg (283 lb) 12/28/2017 4:53 PM CDT Height 185.4 cm (6' 1 ) 12/28/2017 4:53 PM CDT Body Mass Index 37.34 12/28/2017 4:53 PM CDT documented in this encounter Discharge Instructions * Discharge Instructions* JANE Duke - 12/28/2017 5:55 PM CDT Images from the original note were not included. Patient Education Sinusitis in Adults The Basics Written by the doctors and editors at [facility] What is sinusitis???--??Sinusitis is a condition that can cause a stuffy nose, pain in the face, and yellow or green discharge (mucus) from the nose. The sinuses are hollow areas in the bones of the face (figure 1). They have a thin lining that normally makes a small amount of mucus. When this lining gets infected, it swells and makes extra mucus. This causes symptoms. Sinusitis can occur when a person gets sick with a cold. The germs causing the cold can also infectthe sinuses. Many times, a person feels like his or her cold is getting better. But then he or she gets sinusitis and begins to feel sick again. What are the symptoms of sinusitis???--??Common symptoms of sinusitis include: ?Stuffy or blocked nose ?Thick yellow or green discharge from the nose ?Pain in the teeth ?Pain or pressure in the face - This often feels worse when a person bends forward. People with sinusitis can also have other symptoms that include: ?Fever ?Cough ?Trouble smelling ?Ear pressure or fullness ?Headache ?Bad breath ?Feeling tired Most of the time, symptoms start to improve in 7 to 10 days. Should I see a doctor or nurse???--??See your doctor or nurse if your symptoms last more than 10 days, or if your symptoms get better at first but then get worse. Sometimes, sinusitis can lead to serious problems. See your doctor or nurse right away (do not wait10 days) if you have: ?Fever higher than 102??F (38.9??C) ?Sudden and severe pain in the face and head ?Trouble seeing or seeing double ?Trouble thinking clearly ?Swelling or redness around one or both eyes ?A stiff neck Is there anything I can do on my own to feel better???--??Yes. To reduce your symptoms, you can: ?Take an kcht-pzj-jtrwjjr pain reliever to reduce the pain ?Rinse your nose and sinuses with salt water a few times a day - Ask your doctor or nurse about thebest way to do this. Antihistamines do not improve symptoms of sinusitis. Common antihistamines include diphenhydramine (sample brand name: Benadryl), chlorpheniramine (sample brand name: Chlor-Trimeton), loratadine (sample brand name: Claritin), and cetirizine (sample brand name: Zyrtec). They can treat allergies, butnot sinus infections, and could increase your discomfort by drying the lining of your nose and sinuses, or making you tired. Your doctor might also prescribe a steroid nose spray to reduce the swelling in your nose. (Steroidnose sprays do not contain the same steroids that some athletes take illegally.) How is sinusitis treated???--??Most of the time, sinusitis does not need to be treated with antibiotic medicines. This is because most sinusitis is caused by viruses - not bacteria - and antibiotics do not kill viruses. Many people get over sinus infections without antibiotics. Some people with sinusitis do need treatment with antibiotics. If your symptoms have not improved after 10 days, ask your doctor if you should take antibiotics. Your doctor might recommend that you wait 1 more week to see if your symptoms improve. But if you have symptoms such as a fever or a lot of pain, he or she might prescribe antibiotics. It is important to follow your doctor's instructions about taking your antibiotics. What if my symptoms do not get better???--??If your symptoms do not get better, talk with your doctor or nurse. He or she might order tests to figure out why you still have symptoms. These can include: ?CT scan or other imaging tests - Imaging tests create pictures of the inside of the body. ?A test to look inside the sinuses - For this test, a doctor puts a thin tube with a camera on the end into the nose and up into the sinuses. Some people get a lot of sinus infections or have symptoms that last at least 3 months. These people can have a different type of sinusitis called chronic sinusitis. Chronic sinusitis can be causedby different things. For example, some people have growths in their nose or sinuses that are called polyps. Other people have allergies that cause their symptoms. Chronic sinusitis can be treated in different ways. If you have chronic sinusitis, talk with your doctor about which treatments are right for you. All topics are updated as new evidence becomes available and our peer review process is complete. This topic retrieved from [employer] on: Sep 16, 2017. Topic 85530 Version 13.0 Release: 25.6.2-122 - C26.3 ?2018??[employer] and/or its affiliates.??All rights reserved. figure 1: Sinuses of the face This??drawing shows the sinuses of the face. Graphic 15574 Version 7.0 Consumer Information Use and Disclaimer This information [...] or not to accept your health care provider's advice, instructions or recommendations. Only your health care provider has the knowledge and training to provide advice that is right for you.The use of [employer] content is governed by the [employer] Terms of Use. ??2018 [employer]. All rights reserved. Copyright ?2018??[employer] and/or its affiliates.??All rights reserved. documented in this encounter Medications [...] encounter ED Notes * JANE Duke - 12/28/2017 5:10 PM CDT History Chief Complaint Patient presents with ??? Sore Throat ??? Sinus Problem Carlos Mcgee is a 47-year-old male who presented to the ED with complaints of st x 5 days. Deniesfevers. No congestion. Patient also requesting getting his iron level checked. Patient states he has been fatigued recently and has a hx of low iron levels. Patient informed we were unable to test for this hear. Patient denies any other symptoms Past Medical History: Diagnosis Date ??? Anxiety ??? Depressed ??? Hypertension Prior to Admission medications Medication Sig Start Date End Date Taking? Authorizing Provider amoxicillin-clavulanate (AUGMENTIN) 875-125 MG tablet Take 1 tablet (875 mg total) by mouth 2 (two)times daily for 7 days. 12/28/17 01/04/18 Yes JANE Duke fluticasone propionate (FLONASE) 50 MCG/ACT nasal spray 2 sprays by Nasal route daily. 12/28/17 12/28/18 Yes JANE Duke albuterol sulfate HFA 108 (90 BASE) MCG/ACT [...] ??? Alcohol use No Review of Systems Constitutional: Positive for fatigue. HENT: Positive for sore throat. All other systems reviewed and are negative. Physical Exam Filed Vitals: 12/28/17 1653 BP: 143/88 Pulse: 67 Resp: 18 Temp: 97.8 ??F (36.6 ??C) TempSrc: Oral SpO2: 96% Weight: 128.4 kg (283 lb) Height: 6' 1 (1.854 m) Physical Exam Constitutional: He is oriented to person, place, and time. He appears well- developed and well-nourished. HENT: Head: Normocephalic and atraumatic. Right Ear: External ear normal. A middle ear effusion is present. Left Ear: External ear normal. A middle ear effusion is present. Nose: Right sinus exhibits frontal sinus tenderness. Left sinus exhibits frontal sinus tenderness. Mouth/Throat: Oropharynx is clear and moist. Eyes: [...] Nursing note and vitals reviewed. Labs Reviewed RAPID STREP A STREP A, DNA No orders to display ED Course Procedures MDM Number of Diagnoses or Management Options Sinusitis: Diagnosis management comments: Will treat as sinusitis Patient concerned for iron level and states he is going to the ER, recommended following up with pcp r/t not emergent test but patient states he just feels shaky. pcp referral given.instructed to go to the er if symptoms increase Amount and/or Complexity of Data Reviewed Clinical lab tests: reviewed SNOMED CT(R) 1. Sinusitis SINUSITIS Disposition: Discharge JANE DUKE APNP 12/28/17 1806 * Len Hill RN - 12/28/2017 4:50 PM CDT Pt c/o sore throat, fatigue, and nasal congestion. Pt reports he feels shaky . Pt states I think my iron is low. documented in this encounter Plan of Treatment Not on file documented as of this encounter Procedures Procedure Name Priority Date/Time Associated Diagnosis Comments STREP A, DNA STAT 12/28/2017 5:01 PM CDT RAPID STREP A STAT 12/28/2017 5:01 PM CDT documented in this encounter Results * STREP A, DNA (12/28/2017 5:01 PM CDT) STREP A MOLECULAR NEGATIVE NEGATIVE 018 11:04 PM CDT [facility] Comment:SPECIMEN NEGATIVE FO R GROUP A STREPTOCOCCUS BY DNA AMPLIFICATION 12/28/2017 5:01 PM CDT us Germán LARA MICROBIOLOGY - GENERAL ORD ERABLES Final Result Performing Organization Address City/[facility]/ZIP Co de Phone Number [facility] [address] [place] [address], [place] [phone] * RAPID STREP A (12/28/2017 5:01 PM CDT) SPECIMEN TYPE THROAT 12/28/2017 5:01 PM CDT [facility] RAPID STREP TEST NEGATIVE NEGATIVE 12/28/2017 5:38 PM CDT [facility] STRUCTURE OF ANTERIOR PORTION OF NECK / Unknown 12/28/2017 5:01 PM CDT us Germán LARA MICROBIOLOGY - GENERAL ORD ERABLES Final Result [facility] [address] [facility] [place] [address], [place] documented in this encounter Visit Diagnoses Diagnosis Sinusitis- Primary Unspecified sinusitis (chronic) documented in this encounter
--- OUTSIDE RECORDS SUMMARY | 2024-09-10 03:49 | XMS_ITS | Encounter Summary ---
Author Organization [facility] Address [address] [place] [address]. [place], [place] [address] [place] [address] Care Team Providers Care Senior Software Project Manager Name Role Phone Md Generic Conversion [...] Care Team (Late st Contact Info) Description 09/20/[address] [facility] [address] [place] [address] Germán Dominguez, APNP [address] [facility] [address] [place] [address] Social History Tobacco Use Types Packs/Day Years Used Date Smoking Tobacco: Never Assessed Sex and Gender Information Value Date Recorded Sex Assigned at Not on file Legal Sex Male 10:39 PM CDT Gender Identity Not on file Sexual Orientation Not on file documented as of this encounter Plan of Treatment Not on file documented as of this encounter Visit Diagnoses Diagnosis Headache(784.0) Headache documented in this encounter Care Teams Senior Software Project Manager Relationship Specialty Start Date End Date Md Generic ConversionMD PCP - General 02/20/17 Md Generic ConversionMD PCP - General 10/11/16 7 Md Generic ConversionMD PCP - General 07/19/16 Md Generic ConversionMD PCP - General 05/06/16 Md Generic ConversionMD PCP - General 01/23/16 Md, Generic Conversion, MD PCP - General 11/27/15 , Generic Conversion, PCP - General 11/13/15 Md Generic Conversion, PCP - General 09/20/15 6 documented as of this encounter
--- OUTSIDE RECORDS SUMMARY | 2024-09-10 03:49 | XMS_ITS | Encounter Summary ---
Author Organization [facility] Address [facility]. [place] [phone] [place] [address] Care Team Providers Care Building Mechanic Name Role Phone Md Generic Conversion Primary [...] Department Care Team (Latest Contact Info) Description 04/13/2014 Abstract [facility] Social History Tobacco Use Types Packs/Day Years Used Date Smoking Tobacco: Never Assessed Sex and Gender Information Value Date Recorded Sex Assigned at Not on file Legal Sex Male 10:39 PM CDT Gender Identity Not on file Sexual Orientation Not on file documented as of this encounter Progress Notes * Generic Conversion MD Fermin - 04/13/2014 6:11 PM CDT Note Note: called spoke to patient . reports BS post prandial 2 hrs is 340! reports fastings run 180's. discussed treatment with farxiga samples, and discussed how I am not keen on using sulfonylureas as he does not have routine meals, he could precipitously drop his sugars. he reports he recently went to ER for abd pain, had labs done and were all fine assuming normal renal function as well. he reports he has scheduled counselor visit 04-21-2014 in the AM before leaving for [place]. He has appointment with me on 04-20-2014. He states he is waiting to hear back from a physician's office who is both family medicine and specializes in diabetes. he does not have a psychiatrist yet. Plan: 1. glumetza (patient would like to try this first over the [facility]). sample will be waiting at the window for him wednesday. 2. follow up 04-20-2014 - will be able to see how he tolerated the glumetza and refill for a month supply all his meds until he can see a new PCP 3. Discussed his fatigue could be both from uncontrolled diabetes but also his significant anxiety and stress especially over the diabetes. he acknowledged. plan as above. Dayday RUSSELL Message Recorded as Task Date: 04/13/2014 01:39 PM, Created By: Dilshad Martinez Task Name: Call Back Assigned To: Balta Costello Regarding Patient: Carlos Mcgee, Status: Active Comment: Dilshad Martinez - 13 Apr 2014 1:39 PM TASK CREATED Caller: Self; Other; 340 blood sugar wont go down please call Chyna Murray - 13 Apr 2014 2:57 PM TASK EDITED I tried returning call - no answer. I did leave message and directed patient to ED if blood sugar does not come down :( Signatures Electronically signed by : Balta Costello M.D.; Apr 13 2014 6:16PM MASTER BARBER (Author) * Alina Langston Md, MD - 04/13/2014 3:12 PM CDT Message Message: Patient calls to report 360 blood sugar after eating, yesterday evening. Today's FBS 88. I/S patient not to check blood sugars after eating, as it will reflect the foods just consumed. I/S FBS only. Frequent checking of BS adds to anxiety and stress. Patient does not want to listen to thisadvice. I/S patient to call if FBS >250. He is unhappy with advise. COnversation ended, no longer productive. Dr. Costello informed of call Signatures Electronically signed by : Chyna Jimenez R.N.; Apr 13 2014 3:15PM MASTER BARBER (Author) documented in this encounter Plan of Treatment Not on file documented as of this encounter Visit Diagnoses Not on filedocumented in this encounter Care Teams Building Mechanic Relationship Specialty Start Date End Date Md [...] Generic Conversion, PCP - General 09/10/15 6 Md Generic Conversion, PCP - General 02/14/1509/09 Md, Generic Conversion, PCP - General 12/11/14 5 Md, Generic Conversion, PCP - General 09/10/14 Md Generic Conversion, PCP - General 07/30/1409/09 Md Generic Conversion, PCP - General 06/09/1407/29 Balta Costello, PCP - General 02/02/14 06/08/14 documented as of this encounter
--- OUTSIDE RECORDS SUMMARY | 2024-09-10 03:49 | XMS_ITS | Encounter Summary ---
Author Organization [facility] Address [address] [place] [address]. [place] [phone] [place] [address] Care Team Providers Care Station Supervisor Name Role Phone Md Generic Conversion [...] Department Care Team (Latest Contact Info) Description 04/25/2014 Abstract [facility] Medical [facility] Social History Tobacco Use [...] on filedocumented in this encounter Care Teams Station Supervisor Relationship Specialty Start Date End Date Md [...]
--- OUTSIDE RECORDS SUMMARY | 2024-09-10 03:49 | XMS_ITS | Encounter Summary ---
Author Organization [facility] Address [facility]. [place] [phone] [place] [address] Care Team Providers Care Roller Gold Leaf Name Role Phone Md Generic Conversion Primary Care Provider Unavailable Md Generic Conversion Primary Care Provider Unavailable Md, Generic Conversion Primary Care Provider Unavailable Md, Generic Conversion Primary Care Provider Unavailable Md, [...] Generic Conversion MD Primary Care Provider Unavailable Balta Wall MD Primary Care Provider Unavaila ble Encounter Details Date Type Department Care Team (Latest Contact Info) Description 04/04/2014 Abstract [facility] Balta Wall MD [address] [place] [id number] Social History Tobacco Use Types Packs/Day Years Used Date Smoking Tobacco: Never Assessed Sex and Gender Information Value Date Recorded Sex Assigned at Not on file Legal Sex Male 10:39 PM CDT Gender Identity Not on file Sexual Orientation Not on file documented as of this encounter Progress Notes * Generic Conversion MD Fermin - 04/04/2014 5:43 PM CDT Note Note: acknowledged. mlee Message Recorded as Task Date: 03/29/2014 04:20 PM, Created By: Peggy Camacho Task Name: Renew Medication Assigned To: Balta Wall Regarding Patient: Carlos Mcgee, Status: Active Comment: Peggy Camacho - 29 Mar 2014 4:20 PM TASK CREATED Pt states he was taking Januvia 100mg but he was breaking the tablet in half. States the pharmacisttold him that the tablets cannot be broken in half because they have a coating on them, and he willnot get all of the medicine. Patient is now afraid that if he takes 100mg it will be too much. Patient also states that he has never taken Januvia 100mg. States he has always broken the tablets in sara f. Balta Wall - 30 Mar 2014 5:10 PM TASK EDITED THIS IS NOT HE PREVIOUSLY TOLD ME. HE WAS TAKING 100 MG DAILY FAR I KNEW. DISCUSSED BEFORE, IF HE IS STILL HAVING SIGNIFICANT FLUCTUATIONS IN THE BLOOD SUGAR, EVEN HIGH READINGS, THEN 100 MG OF JANUVIA IS FINE TO TAKE FOR NOW. THE MEDICATION DOES NOT ACT TO DROP BLOOD SUGARS PRECIPITOUSLY LOW. CONTINUE FOR NOW THE JANUVIA AT 100 MG DAILY AND ALSO REMIND HIM TO REPEAT HIS KIDNEY FUNCTION /BASIC METABOLIC PANEL WITHIN THE NEXT 2-3 WEEKS TO MONITOR HIS KIDNEY FUNCTION Peggy Wolfe - 02 Apr 2014 8:43 AM TASK EDITED I told patient this and he just argued with me. Signatures Electronically signed by : Balta Wall M.D.; Apr 04 2014 5:43PM RELIGION DEPARTMENT CHAIR (Author) * Generic Conversion MD Fermin - 04/04/2014 5:39 PM CDT Message Recorded as Task Date: 04/04/2014 08:40 AM, Created By: Dilshad Martinez Task Name: Call Back Assigned To: Balta Wall Regarding Patient: Carlos Mcgee, Status: Active Comment: Dilshad Martinez - 04 Apr 2014 8:40 AM TASK CREATED Caller: Self; Other; pt was in the ER last night and wants a call from dr wall or he will be in the office tomorrow morning Peggy Camacho - 04 Apr 2014 8:44 AM TASK EDITED Balta Wall - 04 Apr 2014 5:28 PM TASK EDITED Attempted to call the patient and it went straight to voice mail. LMOM and will try and call back soon. otherwise may be some time before I can return the call. Balta Pierre - 04 Apr 2014 5:39 PM TASK EDITED Attempted a second time to get ahold of patient and left another message. will try and call back tomorrow late. encouraged the patient to let us know which er he went to as Vinod only had the visit from january 2014. mlee Signatures Electronically signed by : Balta Wall M.D.; Apr 04 2014 5:40PM RELIGION DEPARTMENT CHAIR (Author) documented in this encounter Plan of Treatment Not on file documented as of this encounter Visit Diagnoses Not on filedocumented in this encounter Care Teams Roller Gold Leaf Relationship Specialty Start Date End Date Md [...] Conversion, MD PCP - General 06/09/1407/29 Balta Wall MD PCP - General 02/02/14 06/08/14 documented as of this encounter
--- OUTSIDE RECORDS SUMMARY | 2024-09-10 03:49 | XMS_ITS | Encounter Summary ---
Author Organization [facility] Address [address] [place] [address]. [place], [place] [id number] [place] [id number] Care Team Providers Care Rail Car Unloader Name Role Phone None, Provider Primary Care Provider Unavaila ble Reason for Referral * Imaging (Emergency) - Closed Specialty Diagnoses / Procedures Referred By Redd mobley Referred To Contact Procedures CT CERV SPINE WO Lance Cordon FNP Phone: tel: fax: Referral ID Status Reason Start Date Expiration Date Visits Re quested Visits Authorized [id number] Closed 06/18/2018 07/19/2019 1 1 * Imaging (Emergency) - Closed Specialty Diagnoses / Procedures Referred By Redd mobley Referred To Contact Procedures CT HEAD WO Lance Cordon FNP Phone: tel: fax: Referral ID Status Reason Start Date Expiration Date Visits Re quested Visits Authorized [id number] Closed 06/18/2018 07/19/2019 1 1 Reason for Visit * Reason Comments Chest Pain Encounter Details Date Type Department Care Team (Late st Contact Info) Description 06/18/2018 5:44 PM CDT - 06/19/2018 12:[address] [facility] [place] [address] Lance Liz FNP [address] [place] [address] [phone] Chest Pain Discharge Disposition: Left Against Medical Advice [...] Sign Reading Time Taken Comments Blood Pressure 144/84 06/18/2018 9:15 PM CDT Pulse 69 06/18/2018 9:15 PM CDT Temperature 36.5 ??C (97.7 ??F) 06/18/2018 5:16 PM CD T Respiratory Rate 19 06/18/2018 9:15 PM CDT Oxygen Saturation 99% 06/18/2018 9:15 PM CDT Inhaled Oxygen Concentration - - Weight 119.3 kg (263 lb) 06/18/2018 5:16 PM CDT Height 185.4 cm (6' 1 ) 06/18/2018 5:16 PM CDT Body Mass Index 34.7 06/18/2018 5:16 PM CDT documented in this encounter Medications at Time of Discharge albuterol sulfate HFA 108 (90 BASE) MCG/ACT inhaler Inhale 2 puffs into the lungs every 6 (six) hours as needed for Wheezing. 12/12/2018 alprazolam 2 MG tablet Take 2 mg by mouth 4 (four) times daily as needed. 11/30/2019 atenolol 100 MG tablet Take 100 mg by mouth daily. 12/12/2018 cyclobenzaprine 10 MG tablet Take 1 tablet (10 mg total) by mouth 3 (three) times daily as needed for Muscle Spasms. 60 tablet 06/03/2018 07/03/2018 escitalopram 20 MG tablet Take 40 mg by mouth daily. 09/19/2018 fluticasone propionate 50 MCG/ACT nasal spray 1 spray by Nasal route daily. 12/12/2018 documented as of this encounter ED Notes * Moiz Lee RN - 06/19/2018 12:01 AM CDT [facility] here to transfer patient to [facility] room 409. Patient a/ox4 and in no respiratorydistress upon discharge. [facility] called and report given to DOMITILA Bach. * Moiz Lee RN - 06/18/2018 10:14 PM CDT Gave verbal report to DOMITILA Bach. Patient initially wanted to sign out AMA. Decided to proceed with transfer. * Margarita Correia RN - 06/18/2018 8:10 PM CDT Pt requesting to see a monitor car operator, states I want to repent if I'm going to soon . * Margarita Correia RN - 06/18/2018 8:00 PM CDT Pt refusing to wear hospital gown, ECG monitor attached. * RAINA Richards - 06/18/2018 6:13 PM CDTAssociated Order(s): EKG Reading Images from the original note were not included. Chief Complaint Chief Complaint Patient presents with ??? Chest Pain History of Present Illness 48-year-old male to the ER with left chest pain. Patient reports he has had left arm and shoulder and neck pain with intermittent chest pain times 2 weeks. He has had this pain before and has seen a internet site designer and reports that he was advised it was due to stress. Patient reports he also has a badneck was recently in the urgent care for sinusitis and neck pain and was started on a steroid pack and given Flexeril for the neck pain. Reports he does not like taking Flexeril so he has not taken the medication but a few times. Patient also reports severe headaches and would like a head CT because he is concerned about strokes or brain bleeds. Medical History ALLERGIES: Allergies Allergen Reactions ??? Pepcid [Famotidine] Shortness of Breath ??? Bactrim [Sulfamethoxazole-Trimethoprim] Hives ??? Contrast [Iodine] Hives ??? Keflex [Cephalexin] Hives ??? Levofloxacin Unknown ??? Lidocaine Angioedema ??? Oxycodone Hives ??? Percocet [Oxycodone-Acetaminophen] Hives ??? Zithromax [Azithromycin] Hives ??? Ketorolac [...] mg by mouth daily. Yes Doc Abstract cyclobenzaprine 10 MG tablet Take 1 tablet (10 mg total) by mouth 3 (three) times daily as needed for Muscle Spasms. 06/03/18 07/03/18 Yes JANE Waller escitalopram 20 MG tablet Take 40 mg by mouth daily. Yes Doc Abstract fluticasone propionate 50 MCG/ACT nasal spray 1 spray by Nasal route daily. Yes Doc Abstract PAST MEDICAL HISTORY: Past Medical History: Diagnosis Date ??? Anxiety ??? Benign carcinoid tumor of sigmoid colon ??? Depressed ??? Diabetes mellitus (HCC) type 2 ??? Hypertension PAST SURGICAL HISTORY: [...] Systems Review of Systems Constitutional: Positive for diaphoresis. Cardiovascular: Positive for chest pain. Negative for palpitations and leg swelling. Gastrointestinal: Negative for nausea. Musculoskeletal: Positive for neck pain. All other systems reviewed and are negative. Physical Exam Filed Vitals: 06/18/18 1716 06/18/18 2030 06/18/18204406/18/182114 BP: (!) 156/95 141/85 (!) 141/95 144/84 Pulse: 73 76 69 69 Resp: 18 16 15 19 Temp: 97.7 ??F (36.5 ??C) TempSrc: Oral SpO2: 100% 99% 99% 99% Weight: 119.3 kg (263 lb) Height: 6' 1 (1.854 m) Physical Exam Constitutional: He is oriented to person, place, and time. Vital signs are normal. He appears well-developed and well-nourished. He is cooperative. Non- toxic appearance. He does not have a sickly appearance. He does not appear ill. No distress. 8-year-old male resting in bed. Patient is providing history without difficulty. He is very nervouscontinues to talk about the possibility of heart attacks and strokes. HENT: Head: Normocephalic and atraumatic. Right Ear: External ear normal. Left Ear: External ear normal. Nose: Nose normal. Mouth/Throat: Oropharynx is clear and moist. No oropharyngeal exudate. Eyes: Conjunctivae and EOM are normal. Pupils are equal, round, and reactive to light. Right eye exhibits no discharge. Left eye exhibits no discharge. No scleral icterus. Neck: Normal range of motion. Neck supple. Left cervical muscle spasm and pain Cardiovascular: Normal rate, regular rhythm, normal heart sounds and intact distal pulses. Exam reveals no gallop and no friction rub. No murmur heard. Pulmonary/Chest: Effort normal and breath sounds normal. No respiratory distress. He has no wheezes. He has no rales. He exhibits tenderness (left sided). Abdominal: Soft. Bowel sounds are normal. He exhibits no distension. There is no tenderness. Abdomen is obese. Soft and nontender Musculoskeletal: Normal range of motion. He exhibits tenderness. He exhibits no edema or deformity. Left shoulder: He exhibits tenderness, pain and spasm. He exhibits normal range of motion, no bony tenderness, no swelling, no effusion, no crepitus, no deformity, no laceration, normal pulse and normal strength. Arms: Ambulatory and moving all extremities without difficulty. No edema noted Neurological: He is alert and oriented to person, place, and time. Skin: Skin is warm and dry. No rash noted. He is not diaphoretic. No erythema. No pallor. Psychiatric: +anxious Nursing note and vitals reviewed. Diagnostic Studies / Procedures ELECTROCARDIOGRAMS: Results for orders placed or performed during the hospital encounter of 06/18/18 ECG 12-Lead Narrative [facility] [address] [place] [address] Test Date: 2018-06-18 Pat Name: CARLOS KELLY Department: 41 Room: Gender: Male Scale Attendant: abraham : 1970 Requested By: ANIVAL AULTMAN [facility] Order Number: [id number] Reading MD: Measurements Intervals [place] Rate: 73 P: 213 [place]: 324 QRS: 29 QRSD: 102 T: -7 QT: 375 QTc: 414 Interpretive Statements ELECTRONIC ATRIAL PACEMAKER ELECTRONIC VENTRICULAR PACEMAKER ABNORMAL RHYTHM ECG Compared to ECG 01/17/2018 21:28:12 Sinus rhythm no longer present Poor R-wave progression no longer present T-wave abnormality no longer present ECG [address] [facility] [address] [place] [address] Test Date: 2018-06-18 Pat Name: CARLOS KELLY Department: 41 Room: [id number] Gender: Male Scale Attendant: HUY : 1970 Requested By: LANCE LIZ Order Number: [id number] Reading MD: Measurements Intervals [place] Rate: 72 P: 19 IL: 165 QRS: 18 QRSD: 92 T: -2 QT: 364 QTc: 401 Interpretive Statements SINUS RHYTHM Compared to ECG 06/18/2018 17:13:22 Atrial-paced complex(es) or rhythm no longer present Ventricular-paced complex(es) or rhythm no longer present LABORATORY STUDIES: Results for orders placed or performed during the hospital encounter of 06/18/18 CBC W/DIFF AUTOMATED Result Value Ref Range WBC 6.8 4.5 - 11.0 x10'3/uL RBC 6.24 (H) 4.70 - 6.10 x10'6/uL HGB 13.7 (L) 14.0 - 18.0 G/DL HCT 45.3 43.0 - 54.0 % MCV 72.6 (L) 80.0 - 94.0 FL MCH 22.0 (L) 27.0 - 31.0 PG MCHC 30.2 (L) 32.0 - 36.0 G/DL RDW 17.7 (H) 11.5 - 14.5 % PLT 180 130 - 400 x10'3/uL MPV 9.3 9.3 - 12.2 FL DIFFERENTIAL TYPE MANUAL DIFFERENTIAL SEG NEUTROPHILS 69 % LYMPHOCYTES 27 % ATYP. LYMPHS 2 % EOSINOPHILS 2 % ABS. NEUTROPHIL COUNT 4.69 1.80 - 7.70 x10'3/uL ABS.LYMPHOCYTES CALCULATED 1.97 1.00 - 4.80 x10'3/uL ABS. EOSINOPHIL CALCULATED 0.14 0.04 - 0.54 x10'3/uL RBC MORPHOLOGY SLIDE REVIEWED ANISO 1+ MICRO 1+ PLT EST. ADEQUATE PATHOLOGIST COMMENT PATHOLOGIST REVIEW TO FOLLOW. COMPREHENSIVE METABOLIC PANEL Result Value Ref Range GLUCOSE 81 70 - 99 MG/DL BUN 10 7 - 18 MG/DL CREATININE 1.00 0.7 - 1.3 MG/DL SODIUM 143 136 - 145 MMOL/L POTASSIUM 4.0 3.5 - 5.1 MMOL/L CHLORIDE 110 (H) 100 - 108 MMOL/L CO2 27.3 21 - 32 MMOL/L CALCIUM 9.2 8.5 - 10.1 MG/DL TOTAL BILIRUBIN 1.0 0.2 - 1.2 MG/DL TOTAL PROTEIN 8.4 (H) 6.4 - 8.2 G/DL ALBUMIN 4.0 3.4 - 5.0 G/DL AST 27 15 - 37 U/L ALT 41 16 - 60 U/L ALK PHOS 74 50 - 136 U/L ANION GAP 9.7 8 - 20 MMOL/L BUN CREATININE RATIO 10.0 6 - 26 A/G RATIO 0.9 (L) 1.0 - 2.0 RATIO eGFR Non-Afr. Amer. 90 (L) >90 ML/MIN/1.73 M2 eGFR Afr. Amer. >90 >90 ML/MIN/1.73 M2 TROPONIN, QUANT Result Value Ref Range TROPONIN I 0.059 (HH) <0.045 ng/mL. D-DIMER, QUANTITATIVE Result Value Ref Range D-DIMER <150 0 - 230 D DU ng/mL TROPONIN, QUANT Result Value Ref Range TROPONIN I 0.052 (HH) <0.045 ng/mL. IMAGING STUDIES CT CERV SPINE WO CON Final Result by User, [id number] (06/18 1928) Date: 06/18/2018 11:55 PM Exam: CT CERV SPINE WO CON Comparison: No comparisons. Technique: Thin section images were obtained of the cervical spine with coronal and sagittal reconstructions. No IV contrast. A dose lowering technique was used for this procedure, which may include, but is not limited to, dose reduction technique, automated exposure control, the use of iterative reconstruction, and ALARA (As Low As Reasonably Achievable)/ Image gently techniques. History: Neck pain. Findings: There is straightening of the cervical lordosis. There are no vertebral body compression fractures nor subluxations. There is a 6 mm calcification insinuating between the posterior disc space at C5-6. There is uncovertebral arthropathy at this level. There is loss of disc space at C5-6 and to a lesser degree at C6-7. The other disc spaces are preserved. The facet joints overlapping normally with minimal facet arthropathy. The spinous processes are intact. The prevertebral soft tissues appear normal. The lateral masses of C1 and C2 are well aligned. The odontoid process is intact. The atlantooccipital articulations are preserved. Impression: 1. Degenerative disc disease at C5-6. There is a 6 mm calcification in the posterior disc space at C5-6 likely contributing to the degenerative change at this level. 2. Straightening of the lordosis. 3. No gross fracture. Interpreted By: Stanton Patel MD, 06/18/2018 7:[address] HEAD WO CON Final Result by User, [email or web address] (06/18 1924) Date: 06/18/2018 6:29 PM Exam: CT HEAD WO CON Comparison: CT head dated 11/13/2017. Technique: Thin section images were obtained from the skull base through the vertex without IV contrast infusion. A dose lowering technique was used for this procedure, which may include, but is not limited to, dose reduction technique, automated exposure control, the use of iterative reconstruction, and ALARA (As Low As Reasonably Achievable)/ Image gently techniques. History: Headache. Findings: There is no atrophy nor white matter disease. There is no intracranial hemorrhage. The hagan white matter differentiation is preserved. There is no hyperdense arterial sign. There is no vascular distribution infarct. There are no masses nor mass effect. The basilar cisterns are preserved. The visualized paranasal sinuses and mastoids are clear other than a partially visualized mucous retention cysts in the right maxillary sinus measuring 3 cm. The calvarium is intact. Impression: No acute intracranial abnormality. Interpreted By: Stanton Patel MD, 06/18/2018 7:21 PM XR CHEST PORTABLE Final Result by User, [id number] (06/18 1832) Date: 06/18/2018 5:11 PM Exam: XR CHEST PORTABLE Comparison: Chest radiography dated 02/01/2018, 01/17/2018. Technique: Single view chest. History: Chest pain for 2 weeks. Pain radiates into the back. Pain radiates into the jaw and arm. Hypertension. Nausea without vomiting. Diaphoresis. Findings: The cardiac silhouette is prominent, but accentuated by portable technique. The pulmonary vascularity is normal. There are slightly low lung volumes, but no consolidations or pleural effusions. There is no pneumothorax. The osseous structures appear normal. Impression: 1. Borderline cardiomegaly. 2. No acute cardiopulmonary disease process. Interpreted By: Stanton Patel MD, 06/18/2018 6:31 PM EKG Reading Date/Time: 06/18/2018 8:44 PM Performed by: RAINA Bocanegra Authorized by: RAINA Bocanegra Interpreted by ED physician Comparison: compared with previous ECG from 01/17/2018 Rhythm: sinus rhythm ED Course / Medical Decision Making MDM Number of Diagnoses or Management Options Chest pain, unspecified type: Elevated troponin: Diagnosis management comments: 2014 Pt reports the pain is returning. Labs, EKG, and CXR discussed with patient. Pt is unsure if he will be able to stay, will need to take home his friend's car first. 2044 Pt reports the nitro did give some relief. Waiting on troponin. 2099 Case discussed with [facility] family resident. Agrees the patient needs admission. Patient's county supervisor is [place] so we will have to transfer due to insurance issues [address] Kendall, he will accept for observation. 2144 patient is not using to sign out AGAINST MEDICAL ADVICE. I have discussed the risk of this decision. He understands the risk of and disability. He reports that he is homeless and the people that he is staying with let him borrow his car and now are threatening to call the racing manager if you bring does not bring the car back. I have told the patient he can leave the car keys at the senior front end developer but he does not want to do this. He is upset because I cannot tell him what his exact chances of having a heart attack are at this time. He wants to know if he can sign out AGAINST MEDICAL ADVICE and show up at [facility] for direct admit. I told him this is not possible. Amount and/or Complexity of Data Reviewed Decide to obtain previous medical records or to obtain history from someone other than the patient:yes ED Course as of Jun 18 2150 Sat Jun 18, [id number] ECG 12-Lead [JULIET] ED Course User Index [BB] RAINA Bocanegra Clinical Impression Chest pain, unspecified type (Primary) Elevated troponin Disposition: AMA RAINA Bocanegra 06/18/182132 RAINA Bocanegra 06/18/182149 RAINA Bocanegra 06/18/182149 Cosigned by Anival Canseco MD at 06/19/2018 10:55 AM CDT * Dave Vega PA-C - 06/18/2018 5:15 PM CDT [place], [place] EMERGENCY DEPARTMENT ENCOUNTER Medical Screening Examination 06/18/18 5:21 PM Chief Complaint : Chest Pain HPI : Carlos Kelly is a 48-year-old male who presents for chest pain [id number] with radiation to left arm. No past CAD. Vital Signs: Filed Vitals: 06/18/18 1716 BP: (!) 156/95 Pulse: 73 Resp: 18 Temp: 97.7 ??F (36.5 ??C) TempSrc: Oral SpO2: 100% Weight: 119.3 kg (263 lb) Height: 6' 1 (1.854 m) Physical exam: A brief physical exam was completed to facilitate/expedite patient care. Plan: Necessary labs/imaging/medications ordered to initiate pt care. Dave Vega PA-C 06/18/18 1721 Cosigned by Anival Canseco MD at 06/19/2018 11:24 AM CDT * Bertha Sawant RN - 06/18/2018 5:13 PM CDT Pt to triage from home with c/o chest pain x 2 weeks. Pt reports the pain radiates into his back, his jaw, and his arm. Pt denies cough recently. Reports a headache. Reports a hx of HTN. RN able to reproduce pain with palpation. Reports nausea without vomiting, with sweating. Denies SOB at this time. BERTHA SAWANT RN documented in this encounter Plan of Treatment Not on file documented as of this encounter Procedures Procedure Name Priority Date/Time Associated Diagnosis Comments TROPONIN, QUANT STAT 06/18/2018 8:20 PM CDT ECG 12-LEAD STAT 06/18/2018 7:[address] CERV SPINE WO CON STAT 06/18/2018 7:[address] HEAD WO CON STAT 06/18/2018 7:09 PM CDT PARTIAL THROMBOPLASTIN TIME,PTT STAT 06/18/2018 6:38 PM CDT D-DIMER, QUANTITATIVE STAT 06/18/2018 6:38 PM CDT XR CHEST PORTABLE STAT 06/18/2018 6:2 3 PM CDT ELECTROCARDIOGRAM REPORT Routine 018 6:13 PM CDT PATHOLOGY SLIDE CONSULT STAT 06/18/20 18 6:04 PM CDT COMPREHENSIVE METABOLIC PANEL STAT 06/18/2018 6:04 PM CDT CBC W/DIFF AUTOMATED STAT 06/18/2018 6:04 PM CDT TROPONIN, QUANT STAT 06/18/2018 6:04 PM CDT ECG 12-LEAD STAT 06/18/2018 5:13 PM CDT documented in this encounter Results * (ABNORMAL) TROPONIN, QUANT (06/18/2018 8:20 PM CDT) TROPONIN I 0.052(HH) <0.045 ng/mL. 06/18/2018 8:45 PM CDT [facility] Comment: HIGH DOSES OF BIOTIN MAY INTERFERE WITH THIS TEST RESULT. CORRELATION TO CLINICAL HISTORY AND PRESENTATION RECOMMENDED. 06/18/2018 8:20 PM CDT Lance Liz STATISTICAL GENETICIST LABORATORY Final Re sult [facility] [address] [place] [address], [place] [phone] * ECG 12 lead (06/18/2018 7:37 PM CDT) 06/18/2018 7:37 PM CDT Narrative [facility] - 06/19/2018 8:29 AM CDT ?[facility] ? [address], [place] ? Test Date: ?2018-06-18 Pat Name: ? VINCENT CORPUS ? Department: ?? 41 ? Room: ? [id number] Gender: ? Male ? Scale Attendant: ?? SK : ?1970 ? Requested By: LANCE LIZ Order Number: [id number] ? Reading MD: ?? [place] ? Measurements Intervals ?[place] ? Rate: ? 72 ? P: ?19 [place]: ? 165 ?QRS: ?18 QRSD: ? 92 ? T: ?-2 QT: ? 364 ? QTc: ?401 ? Interpretive Statements SINUS RHYTHM Compared to ECG 06/18/2018 17:13:22 Atrial-paced complex(es) or rhythm no longer present Ventricular-paced complex(es) or rhythm no longer present Procedure Note [place] Marks MD - 06/19/[address] Test Date: 2018-06-18 Pat Name: CARLOS KELLY Department: 41 Room: [place] [address] Gender: Male Scale Attendant: HUY : 1970 Requested By: LANCE LIZ Order Number: [id number] Reading MD: [place] Measurements Intervals [place] Rate: 72 P: 19 [place]: 165 QRS: 18 QRSD: 92 T: -2 QT: 364 QTc: 401 Interpretive Statements SINUS RHYTHM Compared to ECG 06/18/2018 17:13:22 Atrial-paced complex(es) or rhythm no longer present Ventricular-paced complex(es) or rhythm no longer present Lance Liz STATISTICAL GENETICIST ECG ORDERABLES Final Re sult [facility] * CT CERV SPINE WO CON (06/18/2018 7:10 PM CDT) Anatomical Region Laterality Modality Spine Computed Tomogra phy 06/18/2018 7:24 PM CDT Narrative 06/18/2018 7:27 PM CDT Date: 06/18/2018 11:55 PM Exam: CT CERV SPINE WO CON Comparison: No comparisons. Technique: Thin section images were obtained of the cervical spine with coronal and sagittal reconstructions. ??No IV contrast. ??A dose lowering technique was used for this procedure, which may include, but is not limited to, dose reduction technique, automated exposure control, the use of iterative reconstruction, and ALARA (As Low As Reasonably Achievable)/ Image gently techniques. History: Neck pain. Findings: There is straightening of the cervical lordosis. ??There are no vertebral body compression fractures nor subluxations. ??There is a 6 mm calcification insinuating between the posterior disc space at C5-6. ??There is uncovertebral arthropathy at this level. ??There is loss of disc space at C5-6 and to a lesser degree at C6-7. ??The other disc spaces are preserved. ??The facet joints overlapping normally with minimal facet arthropathy. ??The spinous processes are intact. ??The prevertebral soft tissues appear normal. ??The lateral masses of C1 and C2 are well aligned. ??The odontoid process is intact. ??The atlantooccipital articulations are preserved. Impression: 1. ??Degenerative disc disease at C5-6. ??There is a 6 mm calcification in the posterior disc space at C5-6 likely contributing to the degenerative change at this level. 2. ??Straightening of the lordosis. 3. ??No gross fracture. Interpreted By: Stanton Patel MD, 06/18/2018 7:24 PM Procedure Note Stanton Patel MD - 06/18/2018 Date: 06/18/2018 11:55 PM Exam: CT CERV SPINE WO CON Comparison: No comparisons. Technique: Thin section images were obtained of the cervical spine withcoronal and sagittal reconstructions. No IV contrast. A dose loweringtechnique was used for this procedure, which may include, but is notlimited to, dose reduction technique, automated exposure control, the useof iterative reconstruction, and ALARA (As Low As Reasonably Achievable)/Image gently techniques. History: Neck pain. Findings: There is straightening of the cervical lordosis. There are novertebral body compression fractures nor subluxations. There is a 6 mmcalcification insinuating between the posterior disc space at C5-6. Thereis uncovertebral arthropathy at this level. There is loss of disc spaceat C5-6 and to a lesser degree at C6-7. The other disc spaces arepreserved. The facet joints overlapping normally with minimal facetarthropathy. The spinous processes are intact. The prevertebral softtissues appear normal. The lateral masses of C1 and C2 are well aligned.The odontoid process is intact. The atlantooccipital articulations arepreserved. Impression: 1. Degenerative disc disease at C5-6. There is a 6 mm calcification inthe posterior disc space at C5-6 likely contributing to the degenerativechange at this level. 2. Straightening of the lordosis. 3. No gross fracture. Interpreted By: Stanton Patel MD, 06/18/2018 7:24 PM Lance Brigitte Liz STATISTICAL GENETICIST CT Final Re sult * CT HEAD WO CON (06/18/2018 7:09 PM CDT) Anatomical Region Laterality Modality Head Computed Tomogra phy 06/18/2018 7:21 PM CDT Narrative 06/18/2018 7:24 PM CDT Date: 06/18/2018 6:29 PM Exam: CT HEAD WO CON Comparison: CT head dated 11/13/2017. Technique: Thin section images were obtained from the skull base through the vertex without IV contrast infusion. A dose lowering technique was used for this procedure, which may include, but is not limited to, dose reduction technique, automated exposure control, the use of iterative reconstruction, and ALARA (As Low As Reasonably Achievable)/ Image gently techniques. History: Headache. Findings: There is no atrophy nor white matter disease. There is no intracranial hemorrhage. The hagan white matter differentiation is preserved. There is no hyperdense arterial sign. There is no vascular distribution infarct. There are no masses nor mass effect. The basilar cisterns are preserved. The visualized paranasal sinuses and mastoids are clear other than a partially visualized mucous retention cysts in the right maxillary sinus measuring 3 cm. The calvarium is intact. Impression: No acute intracranial abnormality. Interpreted By: Stanton Patel MD, 06/18/2018 7:21 PM Procedure Note Stanton Patel MD - 06/18/2018 Date: 06/18/2018 6:29 PM Exam: CT HEAD WO CON Comparison: CT head dated 11/13/2017. Technique: Thin section images were obtained from the skull base throughthe vertex without IV contrast infusion. A dose lowering technique wasused for this procedure, which may include, but is not limited to, dosereduction technique, automated exposure control, the use of iterativereconstruction, and ALARA (As Low As Reasonably Achievable)/ Image gentlytechniques. History: Headache. Findings: There is no atrophy nor white matter disease. There is nointracranial hemorrhage. The hagan white matter differentiation ispreserved. There is no hyperdense arterial sign. There is no vasculardistribution infarct. There are no masses nor mass effect. The basilarcisterns are preserved. The visualized paranasal sinuses and mastoids areclear other than a partially visualized mucous retention cysts in theright maxillary sinus measuring 3 cm. The calvarium is intact. Impression: No acute intracranial abnormality. Interpreted By: Stanton Patel MD, 06/18/2018 7:21 PM Lance Liz STATISTICAL GENETICIST CT Final Re sult * (ABNORMAL) PARTIAL THROMBOPLASTIN TIME,PTT (06/18/2018 6:38 PM CDT) PTT 42.0(H) 25.5 - 37.6 SEC 06/19/2018 2:07 AM CDT [facility] 06/18/2018 6:38 PM CDT J Luis Fletcher MD LABORATORY Final Resu lt [facility] [address] [place] [address], [place] [phone] * D-DIMER, QUANTITATIVE (06/18/2018 6:38 PM CDT) D-DIMER <150 0 - 230 D DU ng/mL 06/18/2018 6:56 PM CDT [facility] Comment: TESTING PERFORMED ON Clip ACL TOP 300 ANALYZER. NOTE: RESULTS OF THIS TEST SHOULD ALWAYS BE INTERPRETED IN CONJUNCTION WITH THE PATIENT'S MEDICAL HISTORY, CLINICAL PRESENTATION AND OTHER FINDINGS. CLINICAL DIAGNOSIS SHOULD NOT BE BASED ON THE RESULT OF D-DIMER ALONE. THE MEASUREMENT OF D-DIMER SHOULD NOT BE USED AN AID IN THE DIAGNOSIS OF VTE IN PATIENTS WITH: THERAPEUTIC DOSE ANTICOAGULANT THERAPY FOR >24HRS, FIBRINOLYTIC THERAPY WITHIN PREVIOUS 7 DAYS, TRAUMA OR SURGERY WITHIN PREVIOUS 4 WEEKS, DISSEMINATED MALIGNANCIES, AORTIC ANEURYSM, SEPSIS, SEVERE INFECTIONS, PNEUMONIA, SEVERE SKIN INFECTIONS, LIVER CIRRHOSIS OR . 06/18/2018 6:38 PM CDT Lance Liz [facility] Final Re sult [facility] [address] [place] [address], * XR CHEST PORTABLE (06/18/2018 6:23 PM CDT) Anatomical Region Laterality Modality Chest Radiographic Katarzyna ging 06/18/2018 6:31 PM CDT Narrative 06/18/2018 6:32 PM CDT Date: 06/18/2018 5:11 PM Exam: XR CHEST PORTABLE Comparison: Chest radiography dated 02/01/2018, 01/17/2018. Technique: Single view chest. History: Chest pain for 2 weeks. ??Pain radiates into the back. ??Pain radiates into the jaw and arm. ??Hypertension. ??Nausea without vomiting. ??Diaphoresis. Findings: The cardiac silhouette is prominent, but accentuated by portable technique. ??The pulmonary vascularity is normal. ??There are slightly low lung volumes, but no consolidations or pleural effusions. ??There is no pneumothorax. ??The osseous structures appear normal. Impression: 1. ??Borderline cardiomegaly. 2. ??No acute cardiopulmonary disease process. Interpreted By: Stanton Patel MD, 06/18/2018 6:31 PM Procedure Note Stanton Patel MD - 06/18/2018 Date: 06/18/2018 5:11 PM Exam: XR CHEST PORTABLE Comparison: Chest radiography dated 02/01/2018, 01/17/2018. Technique: Single view chest. History: Chest pain for 2 weeks. Pain radiates into the back. Painradiates into the jaw and arm. Hypertension. Nausea without vomiting.Diaphoresis. Findings: The cardiac silhouette is prominent, but accentuated by portabletechnique. The pulmonary vascularity is normal. There are slightly lowlung volumes, but no consolidations or pleural effusions. There is nopneumothorax. The osseous structures appear normal. Impression: 1. Borderline cardiomegaly. 2. No acute cardiopulmonary disease process. Interpreted By: Stanton Patel MD, 06/18/2018 6:31 PM Anival Canseco MD GENERAL IMAGING Final Result * EKG Reading (06/18/2018 6:13 PM CDT) Anival Taylor MD - 06/18/2018 6:13 PM CDT RAINA Bocanegra ? 06/18/2018 ??9:33 PM EKG Reading Date/Time: 06/18/2018 8:44 PM Performed by: RAINA Bocanegra Authorized by: RAINA Bocanegra Interpreted by ED physician Comparison: compared with previous ECG from 01/17/2018 Rhythm: sinus rhythm Lance [place] [facility] Final Result * PATHOLOGY SLIDE CONSULT (06/18/2018 6:04 PM CDT) CBC PATHOLOGIST COMMENT PATHOLOGIST REVIEW ADDED TO REPORT 06/21/2018 12:39 AM CDT [facility] Comment: [id number].MICROCYTIC RBCS. AGREE WITH AUTOMATED WBC DIFFERENTIAL. REVIEWED BY STEVE AMAYA M.D., PATHOLOGIST. 06/18/2018 6:04 PM CDT Anival Canseco MD PATHOLOGY/CYTOLOGY ORDERABLES F inal Result Performing Organization Address City/[facility]/ZIP Co de Phone Number [facility] [address] [place] [address], * (ABNORMAL) TROPONIN, QUANT (06/18/2018 6:04 PM CDT) TROPONIN I 0.059() <0.045 ng/mL. 06/18/2018 7:02 PM CDT [facility] Comment: BPM CALLED CRITICAL RESULTS AT [id number] TO AND READ BACK BY BILLY HARPER RN HIGH DOSES OF BIOTIN MAY INTERFERE WITH THIS TEST RESULT. CORRELATION TO CLINICAL HISTORY AND PRESENTATION RECOMMENDED. 06/18/2018 6:04 PM CDT [facility] Final Result Performing Organization Address [facility] Co de Phone Number [facility] [address] [place] [address], * (ABNORMAL) COMPREHENSIVE METABOLIC PANEL (06/18/2018 6:04 PM CDT) GLUCOSE 81 70 - 99 MG/DL 06/18/2018 7:02 PM CDT [facility] BUN 10 7 - 18 MG/DL 06/18/2018 7:02 PM CDT [facility] CREATININE S/P/B 1.00 0.7 - 1.3 MG/DL 06/18/2018 7:02 PM CDT [facility] SODIUM S/P/B 143 136 - 145 MMOL/L 06/18/2018 7:02 PM T [facility] POTASSIUM S/P/B 4.0 3.5 - 5.1 MMOL/L 06/18/2018 7:02 PM T [facility] CHLORIDE S/P/B 110(H) 100 - 108 MMOL/L 06/18/2018 7:02 PM T [facility] CO2 27.3 21 - 32 MMOL/L 06/18/2018 7:02 PM T [facility] CALCIUM S/P/B 9.2 8.5 - 10.1 MG/DL 06/18/2018 7:02 PM T [facility] BILIRUBIN TOTAL S/P/B 1.0 0.2 - 1.2 MG/DL 06/18/2018 7:02 PM T [facility] TOTAL PROTEIN S/P/B 8.4(H) 6.4 - 8.2 G/DL 06/18/2018 7:02 PM T [facility] ALBUMIN S/P/B 4.0 3.4 - 5.0 G/DL 06/18/2018 7:02 PM T [facility] AST 27 15 - 37 U/L 06/18/2018 7:02 PM T [facility] ALT 41 16 - 60 U/L 06/18/2018 7:02 PM T [facility] ALKALINE PHOSPHATASE S/P/B 74 50 - 136 U/L 06/18/2018 7:02 PM T [facility] ANION GAP 9.7 8 - 20 MMOL/L 06/18/2018 7:02 PM T [facility] BUN CREATININE RATIO 10.0 6 - 26 06/18/2018 7:02 PM T [facility] A/G RATIO 0.9(L) 1.0 - 2.0 RATIO 06/18/2018 7:02 PM CDT [facility] EGFR NON-AFR. AMER. 90(L) >90 ML/MIN/1.7 3 M2 06/18/2018 7:02 PM CDT [facility] EGFR AFR. AMER. >90 >90 ML/MIN/1.7 3 M2 06/18/2018 7:02 PM CDT [facility] Comment: NOTE: eGFR is not calculated for patients <18 years of age. This is an estimated GFR (CKD EPI) and should not be used for calculating drug doses. 06/18/2018 6:04 PM CDT Anival [facility] LABORATORY Final Result [facility] [address] [place] [address], [place] [phone] * (ABNORMAL) CBC W/DIFF AUTOMATED (06/18/2018 6:04 PM CDT) WBC 6.8 4.5 - 11.0 x10'3/uL 06/18/2018 6:45 PM CDT [facility] RBC 6.24(H) 4.70 - 6.10 x10'6/uL 06/18/2018 6:45 PM CDT [facility] HGB 13.7(L) 14.0 - 18.0 G/DL 06/18/2018 6:45 PM CDT [facility] HCT 45.3 43.0 - 54.0 % 06/18/2018 6:45 PM CDT [facility] MCV 72.6(L) 80.0 - 94.0 FL 06/18/2018 6:45 PM CDT [facility] MCH 22.0(L) 27.0 - 31.0 PG 06/18/2018 6:45 PM CDT [facility] MCHC 30.2(L) 32.0 - 36.0 G/DL 06/18/2018 6:45 PM CDT [facility] RDW 17.7(H) 11.5 - 14.5 % 06/18/2018 6:45 PM CDT [facility] PLT 180 130 - 400 x10'3/uL 06/18/2018 6:45 PM CDT [facility] MPV 9.3 9.3 - 12.2 FL 06/18/2018 6:45 PM CDT [facility] DIFFERENTIAL TYPE MANUAL DIFFERENTIAL 06/18/2018 7:03 PM CDT [facility] SEG NEUTROPHILS 69 % 8 7:03 PM CDT [facility] LYMPHOCYTES 27 % 06/18/2018 7:03 PM CDT [facility] ATYP. LYMPHS 2 % 06/18/2018 7:03 PM CDT [facility] EOSINOPHILS 2 % 06/18/2018 7:03 PM CDT [facility] ABS. NEUTROPHILS CALCULATED 4.69 1.80 - 7.70 x10'3/uL 06/18/2018 7:03 PM CDT [facility] ABS.LYMPHOCYTES CALCULATED 1.97 1.00 - 4.80 x10'3/uL 06/18/2018 7:03 PM CDT [facility] ABS. EOSINOPHIL CALCULATED 0.14 0.04 - 0.54 x10'3/uL 06/18/2018 7:03 PM CDT [facility] RBC MORPHOLOGY SLIDE REVIEWED 2017 7:03 PM CDT [facility] ANISO 1+ 06/18/2018 7:03 PM CDT [facility] MICRO 1+ 06/18/2018 7:03 PM CDT [facility] PLT EST. ADEQUATE 06/18/2018 7:03 PM CDT [facility] PATHOLOGIST COMMENT PATHOLOGIST REVIEW TO FOLLOW. 06/18/2018 7:03 PM CDT [facility] 06/18/2018 6:04 PM CDT Anival Canseco MD LABORATORY Final Result [facility] [address] [place] [address], * ECG 12-Lead (06/18/2018 5:13 PM CDT) 06/18/2018 5:13 PM CDT Narrative [facility] - 06/19/2018 8:36 AM CDT ?[facility] ? [address] [place] ? Test Date: ?2018-06-18 Pat Name: ? VINCENT CORPUS ? Department: ?? 41 ? Room: ? Gender: ? Male ? Scale Attendant: ?? abraham : ?1970 ? Requested By: ANIVAL CANSECO Order Number: [id number] ? Reading : ?? [place] ? Measurements Intervals ?[place] ? Rate: ? 73 ? P: ?213 [place]: ? 324 ?QRS: ?29 QRSD: ? 102 ?T: ?-7 QT: ? 375 ? QTc: ?414 ? Interpretive Statements ELECTRONIC ATRIAL PACEMAKER ELECTRONIC VENTRICULAR PACEMAKER ABNORMAL RHYTHM ECG Compared to ECG 01/17/2018 21:28:12 Sinus rhythm no longer present Poor R-wave progression no longer present T-wave abnormality no longer present Procedure Note [place] MD - 06/19/2018 [place] [address] [facility] Test Date: 2018-06-18 Pat Name: CARLOS KELLY Department: 41 Room: Gender: Male Scale Attendant: abraham : 1970 Requested By: ANIVAL CANSECO Order Number: [id number] Reading MD: [place] Measurements Intervals [place] Rate: 73 P: 213 [place]: 324 QRS: 29 QRSD: 102 T: -7 QT: 375 QTc: 414 Interpretive Statements ELECTRONIC ATRIAL PACEMAKER ELECTRONIC VENTRICULAR PACEMAKER ABNORMAL RHYTHM ECG Compared to ECG 01/17/2018 21:28:12 Sinus rhythm no longer present Poor R-wave progression no longer present T-wave abnormality no longer present us Anival Canseco MD ECG ORDERABLES Final Result [facility] documented in this encounter Visit Diagnoses Diagnosis Chest pain, unspecified type- Primary Elevated troponin Other abnormal blood chemistry documented in this encounter Administered Medications Inactive Administered Medications - up to 3 most recent administrations Medication Order MAR Action Action Date Dose Rate Site aspirin chewable tablet 324 mg 324 mg, Oral, Once, 1 dose, On 06/18/18 at 1715, If not given by EMS or taken immediately prior to arrival Given 06/18/2018 8:18 PM CDT 324 mg heparin (porcine) injection 3,600 Units 3,600 Units (rounded from 3,579 Units = 30 Units/kg ? 119.3 kg), Intravenous, As needed, Other, per Anti-Xa results, Starting on 06/18/18 at 2308, Until 06/19/18 at 0209, HEPARIN ACS PROTOCOL: Bolus 30 units/kg if Anti-Xa 0.06-0.29 Increase infusion and repeat Anti-Xa level in 6 hours. heparin (porcine) injection 7,150 Units 7,150 Units (rounded from 7,158 Units = 60 Units/kg ? 119.3 kg), Intravenous, As needed, Other, per Anti-Xa results, Starting on 06/18/18 at 2308, Until 06/19/18 at 0209, HEPARIN ACS PROTOCOL: Bolus 60 units/kg if Anti-Xa less than 0.06. Increase infusion and repeat Anti-Xa level in 6 hours. heparin 25,000 units/250 mL infusion 0-3,900 Units/hr (0-39 mL/hr), Intravenous, Continuous, Starting on 06/18/18 at 2315, Until 06/19/18 at 0209, HEPARIN ACS PROTOCOL: Initial Weight-Based Infusion Rate: 1,000 units per hr (12 units/kg/hour) Maximum Initial Rate: 1000 units/hour (10 mLs/hr) Adjust subsequent dosing based on Anti-Xa results: - (Less than 0.06 -----BOLUS 60 units/kg IVP ------ INCREASE infusion rate by 300 units/hour (3 mLs/hr); REPEAT level 6 hours after dose change) - (0.06-0.29 BOLUS 30 units/kg IVP ------ INCREASE infusion rate by 100 units/hour (1 mL/hr); REPEAT level 6 hours after dose change) - (0.3-0.5 NO BOLUS NO INFUSION CHANGE; REPEAT level in AM UNLESS this is the first level within range; then REPEAT level in 6 hours) - (0.51-0.7 NO BOLUS DECREASE infusion rate by 100 units/hour (1 mL/hr); REPEAT level 6 hours after dose change) - (Greater than 0.7 ---NO BOLUS HOLD infusion; REPEAT STAT level after 1 hour) - (If still greater than 0.7 after 1 hour Continue to HOLD infusion; REPEAT STAT level every 1 hour) - (Once level is less than 0.7 RESTART infusion but DECREASE rate by 200 units/hour (2 mLs/hr); REPEAT level 6 hours after re-initiating the lower rate) - (Greater than 1.1 -------HOLD infusion and NOTIFY PROVIDER) nitroglycerin (NITROSTAT) SL tablet 0.4 mg 0.4 mg, Sublingual, Once, 1 dose, On 06/18/18 at 2014 Given 06/18/2018 8:17 PM CDT 0.4 mg documented in this encounter Active and Recently Administered Medications Times are shown in CDT. Scheduled Medication Order 06/17/2018 06/18/2018 06/19/2018 ALPRAZolam (XANAX) tablet 1 mg 1 mg, Oral, Once, 1 dose, On 06/18/18 at 2345 [id number] (Canceled Entry - Provi jon: Automatic Discharge Provider - Comment: Automatically canceled at discontinue of medication order) aspirin chewable tablet 324 mg (COMPLETED) 324 mg, Oral, Once, 1 dose, On 06/18/18 at 1715, If not given by EMS or taken immediately prior to arrival 2017 (Given - Provider: Niall Correia, DOMITILA - Comment: Ketoralac Allergy: GI upset) heparin (porcine) injection 4,000 Units 4,000 Units, Intravenous, Once, 1 dose, On 06/18/18 at 2315, IV Push Bolus. Maximum 4,000 units. 2315 (Canceled Entry - Provi jon: Automatic Discharge Provider - Comment: Automatically canceled at discontinue of medication order) nitroglycerin (NITROSTAT) SL tablet 0.4 mg (COMPLETED) 0.4 mg, Sublingual, Once, 1 dose, On 06/18/18 at 2014 2016 (Given - Provider: Niall Correia, DOMITILA) Continuous Medication Order 06/17/2018 06/18/2018 06/19/2018 heparin 25,000 units/250 mL infusion(Linked Group 1) 0-3,900 Units/hr (0-39 mL/hr), Intravenous, Continuous, Starting on 06/18/18 at 2315, Until 06/19/18 at 0209, HEPARIN ACS PROTOCOL: Initial Weight-Based Infusion Rate: 1,000 units per hr (12 units/kg/hour) Maximum Initial Rate: 1000 units/hour (10 mLs/hr) Adjust subsequent dosing based on Anti-Xa results: - (Less than 0.06 -----BOLUS 60 units/kg IVP ------ INCREASE infusion rate by 300 units/hour (3 mLs/hr); REPEAT level 6 hours after dose change) - (0.06-0.29 BOLUS 30 units/kg IVP ------ INCREASE infusion rate by 100 units/hour (1 mL/hr); REPEAT level 6 hours after dose change) - (0.3-0.5 NO BOLUS NO INFUSION CHANGE; REPEAT level in AM UNLESS this is the first level within range; then REPEAT level in 6 hours) - (0.51-0.7 NO BOLUS DECREASE infusion rate by 100 units/hour (1 mL/hr); REPEAT level 6 hours after dose change) - (Greater than 0.7 ---NO BOLUS HOLD infusion; REPEAT STAT level after 1 hour) - (If still greater than 0.7 after 1 hour Continue to HOLD infusion; REPEAT STAT level every 1 hour) - (Once level is less than 0.7 RES TART infusion but DECREASE rate by 200 units/hour (2 mLs/hr); REPEAT level 6 hours after re-initiating the lower rate) - (Greater than 1.1 HOLD infusion and NOTIFY PROVIDER) [id number] (Canceled Entry - Provi jon: Automatic Discharge Provider - Comment: Automatically canceled at discontinue of medication order) PRN Medication Order 06/17/2018 06/18/2018 06/19/2018 heparin (porcine) injection 3,600 Units(Linked Group 1) 3,600 Units (rounded from 3,579 Units = 30 Units/kg ? 119.3 kg), Intravenous, As needed, Other, per Anti-Xa results, Starting on 06/18/18 at 2308, Until 06/19/18 at 0209, HEPARIN ACS PROTOCOL: Bolus 30 units/kg if Anti-Xa 0.06-0.29 Increase infusion and repeat Anti-Xa level in 6 hours. heparin (porcine) injection 7,150 Units(Linked Group 1) 7,150 Units (rounded from 7,158 Units = 60 Units/kg ? 119.3 kg), Intravenous, As needed, Other, per Anti-Xa results, Starting on 06/18/18 at 2308, Until 06/19/18 at 0209, HEPARIN ACS PROTOCOL: Bolus 60 units/kg if Anti-Xa less than 0.06. Increase infusion and repeat Anti-Xa level in 6 hours. Linked Groups Order Group 1: heparin 25,000 units/250 mL infusionJump to med 0-3,900 Units/hr (0-39 mL/hr), Intravenous, Continuous, Starting on 06/18/18 at 2315, Until 06/19/18 at 0209, HEPARIN ACS PROTOCOL: Initial Weight-Based Infusion Rate: 1,000 units per hr (12 units/kg/hour) Maximum Initial Rate: 1000 units/hour (10 mLs/hr) Adjust subsequent dosing based on Anti-Xa results: - (Less than 0.06 -----BOLUS 60 units/kg IVP ------ INCREASE infusion rate by 300 units/hour (3 mLs/hr); REPEAT level 6 hours after dose change) - (0.06-0.29 BOLUS 30 units/kg IVP ------ INCREASE infusion rate by 100 units/hour (1 mL/hr); REPEAT level 6 hours after dose change) - (0.3-0.5 NO BOLUS NO INFUSION CHANGE; REPEAT level in AM UNLESS this is the first level within range; then REPEAT level in 6 hours) - (0.51-0.7 NO BOLUS DECREASE infusion rate by 100 units/hour (1 mL/hr); REPEAT level 6 hours after dose change) - (Greater than 0.7 ---NO BOLUS HOLD infusion; REPEAT STAT level after 1 hour) - (If still greater than 0.7 after 1 hour Continue to HOLD infusion; REPEAT STAT level every 1 hour) - (Once level is less than 0.7 RESTART infusion but DECREASE rate by 200 units/hour (2 mLs/hr); REPEAT level 6 hours after re-initiating the lower rate) - (Greater than 1.1 HOLD infusion and NOTIFY PROVIDER) And heparin (porcine) injection 7,150 UnitsJump to med 7,150 Units (rounded from 7,158 Units = 60 Units/kg ? 119.3 kg), Intravenous, As needed, Other, per Anti-Xa results, Starting on 06/18/18 at 2308, Until 06/19/18 at 0209, HEPARIN ACS PROTOCOL: Bolus 60 units/kg if Anti-Xa less than 0.06. Increase infusion and repeat Anti-Xa level in 6 hours. And heparin (porcine) injection 3,600 UnitsJump to med 3,600 Units (rounded from 3,579 Units = 30 Units/kg ? 119.3 kg), Intravenous, As needed, Other, per Anti-Xa results, Starting on 06/18/18 at 2308, Until 06/19/18 at 0209, HEPARIN ACS PROTOCOL: Bolus 30 units/kg if Anti-Xa 0.06-0.29 Increase infusion and repeat Anti-Xa level in 6 hours. 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
--- OUTSIDE RECORDS SUMMARY | 2024-09-10 03:49 | XMS_ITS | Encounter Summary ---
Author Organization [facility] Address [address] [place] [address]. [place], [place] [id number] [place] [id number] Care Team Providers Care Risk Investigator Name Role Phone Unavailable Primary Care Provider Unavailabl e Reason for Visit * Reason Comments Chest Pain Encounter Details Date Type Department Care Team ([facility] st Contact Info) Description 01/17/2018 8:46 PM CDT - 01/18/2018 12:23 AM CDT Emergency [facility] Emergency Room [place], [place] [id number] Terry Bae MD [address], [place] [address] Chest Pain Discharge Disposition: Home or Self Care [...] Sign Reading Time Taken Comments Blood Pressure 153/92 01/18/2018 12:22 AM CDT Pulse 55 01/18/2018 12:22 AM CDT Temperature 36.8 ??C (98.2 ??F) 01/18/2018 12:22 AM C DT Respiratory Rate 18 01/17/2018 10:30 PM CDT Oxygen Saturation 98% 01/18/2018 12:22 AM CDT Inhaled Oxygen Concentration - - Weight 128.4 kg (283 lb) 01/17/2018 8:48 PM CDT Height 188 cm (6' 2 ) 01/17/2018 8:48 PM CDT Body Mass Index 36.34 01/17/2018 8:48 PM CDT documented in this encounter Discharge Instructions * Discharge Instructions* Terry Bae MD - 01/17/2018 11:56 PM CDT Thank you for giving us the opportunity to care for you today. If at any point you are becoming more ill, please call your doctor or return here. You are always welcome back. If you have any questions about this visit, concerns about your symptoms, questions about your medications or other concerns, please give us a call... - Terry Bae M.D., [facility], [facility] - Emergency Medicine Physician ADDITIONAL DISCHARGE INSTRUCTIONS: --Please follow all the instructions that we have discussed or are provided here. --While the tests and exam we have performed in the Emergency Department did not show anything dangerous or life threatening it is important for you to follow up with your doctor for further evaluation of your symptoms. It is also important to return to the ED if your symptoms become worse or you have new or further concerns. -- Please mention to your follow-up physician that you were in the emergency department and requestthat they review your labs and/or imaging to ensure all findings are followed up on. --A note on Radiology: If you had an x-ray, the read is preliminary and you will be called if thereare any further findings on the final read. (Please make sure that you have given registration a working phone number) --Again, it was a pleasure taking care of you. Results for orders placed or performed during the hospital encounter of 01/17/18 CBC W/DIFF AUTOMATED Result Value Ref Range WBC 5.1 4.8 - 10.8 x10'3/uL RBC 6.15 (H) 4.70 - 6.10 x10'6/uL HGB 13.0 (L) 14.0 - 18.0 G/DL HCT 43.5 43.0 - 54.0 % MCV 70.7 (L) 80.0 - 94.0 FL MCH 21.1 (L) 27.0 - 31.0 PG MCHC 29.9 (L) 32.0 - 36.0 G/DL RDW 19.6 (H) 11.5 - 14.5 % PLT 231 130 - 400 x10'3/uL MPV 9.1 (L) 9.3 - 12.2 FL BASOPHILS 0.6 0.0 - 1.0 % EOSINOPHILS 2.7 1.0 - 3.0 % NEUTROPHILS 59.6 43.0 - 65.0 % LYMPHOCYTES 29.4 20.0 - 46.0 % MONOCYTES 7.5 5.0 - 12.0 % IMMATURE GRANS 0.2 0.0 - 1.0 % RBC MORPHOLOGY SLIDE REVIEWED PLT MORPH. LARGE PLATELETS PATHOLOGIST COMMENT PATHOLOGIST REVIEW TO FOLLOW. COMPREHENSIVE METABOLIC PANEL Result Value Ref Range GLUCOSE 93 70 - 99 MG/DL BUN 13 7 - 18 MG/DL CREATININE 1.13 0.7 - 1.3 MG/DL SODIUM 143 136 - 145 MMOL/L POTASSIUM 3.6 3.5 - 5.1 MMOL/L CHLORIDE 108 100 - 108 MMOL/L CO2 29.8 21 - 32 MMOL/L CALCIUM 8.8 8.5 - 10.1 MG/DL TOTAL BILIRUBIN 1.3 (H) 0.2 - 1.2 MG/DL TOTAL PROTEIN 8.0 6.4 - 8.2 G/DL ALBUMIN 4.1 3.4 - 5.0 G/DL AST 38 (H) 15 - 37 U/L ALT 55 16 - 60 U/L ALK PHOS 78 50 - 136 U/L ANION GAP 8.8 8 - 20 MMOL/L BUN CREATININE RATIO 11.5 6 - 26 A/G RATIO 1.1 1.0 - 2.0 RATIO eGFR Non-Afr. Amer. 78 (L) >90 ML/MIN/1.73 M2 eGFR Afr. Amer. >90 >90 ML/MIN/1.73 M2 TROPONIN, QUANT Result Value Ref Range TROPONIN I 0.027 <0.045 ng/mL. TROPONIN, QUANT Result Value Ref Range TROPONIN I 0.028 <0.045 ng/mL. CKMB,(MB FRACTION ONLY) Result Value Ref Range CK-MB 1.0 0.5 - 3.6 NG/ML CK (CPK) Result Value Ref Range CPK 142 35 - 232 U/L LIPASE Result Value Ref Range LIPASE 180 73 - 393 UNITS/L PROTIME/INR, VENOUS Result Value Ref Range Protime 11.5 9.6 - 12.2 SEC INR 1.1 PARTIAL THROMBOPLASTIN TIME,PTT Result Value Ref Range PTT 42.6 (H) 25.5 - 37.6 SEC Xr Chest Pa+lat Result Date: 12/23/2017 EXAMINATION: Chest X-Ray 2 View EXAM DATE/TIME: 12/23/2017 5:59 PM REASON FOR EXAM: chest pain COMPARISON: 11/13/2017 TECHNIQUE: PA and lateral views of the chest were obtained. FINDINGS: Heart size is within normal limits. Pulmonary vasculature is within normal limits. There is no large pleural effusion or pneumothorax. There is no focal infiltrate or consolidative change. =====IMPRESSION:===== 1. No acute cardiopulmonary findings. Xr Chest Portable Result Date: 01/17/2018 EXAM: CHEST RADIOGRAPH INDICATION: Left chest pain.] Upper arm spider right. TECHNIQUE: Upright Portable AP view COMPARISON: CXR 12/23/2017 FINDINGS: When accounting for low lung volumes stable cardiomediastinal silhouette. No overt congestion, focal lung consolidation, clinically significant size pleural effusion, pneumothorax, or parahilar opacity/peribronchial cuffing. Some bibasilar hazy opacities attributed to atelectasis and/or summation artifact. The right CPA is not completely included in the [id number] thereby limiting evaluation of this area. Minimal osseous degenerative changes. IMPRESSION: Low lung volumes however no acute pulmonary process radiographically demonstrated. * Attachments The following attachments cannot be sent through Care Everywhere. * NAUSEA AND VOMITING DISCHARGE INSTRUCTIONS, ADULT ([place]) * STOMACH ACHE AND STOMACH UPSET ([place]) * GASTRITIS DISCHARGE INSTRUCTIONS ([place]) * ULCER AND GASTRITIS DIET ([place]) * INSECT BITES AND STINGS DISCHARGE INSTRUCTIONS ([place]) documented in this encounter Medications at Time of Discharge albuterol sulfate HFA 108 (90 BASE) MCG/ACT inhaler Inhale 2 puffs into the lungs every 6 (six) hours as needed for Wheezing. 9 alprazolam 2 MG tablet Take 2 mg by mouth 4 (four) times daily as needed. 0 atenolol 100 MG tablet Take 100 mg by mouth daily. 9 escitalopram 20 MG tablet Take 40 mg by mouth daily. 9 fluticasone propionate 50 MCG/ACT nasal spray 1 spray by Nasal route daily. 9 omeprazole 40 MG capsule Take 1 capsule (40 mg total) by mouth daily for 30 days. 30 capsule 01/17/2018 8 ondansetron (ZOFRAN ODT) 8 MG disintegrating tablet Take 1 tablet (8 mg total) by mouth every 8 (eight) hours as needed for Nausea. 15 tablet 01/17/2018 8 sucralfate 1 G tablet Take 1 tablet (1 g total) by mouth 4 (four) times daily before meals and nightly for 15 days. 60 tablet 01/17/2018 8 documented as of this encounter ED Notes * Leslie Vasquez RN - 01/17/2018 11:12 PM CDT Pt refusing protonix iv and refusing remainder of ivf. made aware. * Terry Bae MD - 01/17/2018 10:59 PM CDT [place], [place] EMERGENCY DEPARTMENT ENCOUNTER HISTORICAL INFORMATION Primary Care Doctor: No primary care provider on file. Patient information was obtained primarily from the patient, nursing notes History/Exam limitations: None Provider at Bedside Date/Time Event User Comments 01/17/182046 Provider at Bedside Assessing Patient TERRY BAE CHIEF COMPLAINT Chest Pain CRISTINA Kelly is a 47-year-old male who presents to the ED with multiple complaints. He reports onT of last week he noticed a small area of redness with a central vesicular lesion on the right mid bicep area. He squeezed at the area on and Wednesday and it opened up and since that time has become a shallow open area with scant clear drainage which dries on the dressing yellow or white, he is concerned he was bitten by a spider. Since he has been having persistent nausea,states it feels like when he had gastritis, he reports recently being prescribed motrin 2300mg or 3200mg (he states both during the history) along with iron supplementation and he is frustrated because the doctors don't think before prescribing these things. He reports chronic hx/o gastritis and states that he needs promethazine to help his symptoms. He also is reporting in triage chest pain but then states it's just epigastric pain related to his gastritis, no niki chest pain, this started onthe way to the hospital, no diaphoresis, does have nausea which preceeded the chest pain, no shortness of breath, no back or flank pain, no palpitations. He is very frustrated with the care he has received, states he doesn't have a primary because [employer] fired him, states he needs an antibiotic for his wound on his upper arm. He told triage he was running a fever but denied having fevers tome. PAST MEDICAL HISTORY Past Medical History: Diagnosis Date ??? Anxiety ??? Benign carcinoid tumor of sigmoid colon ??? Depressed ??? Diabetes mellitus type 2 ??? Hypertension SURGICAL HISTORY Past Surgical History: Procedure Laterality Date ??? CHOLECYSTECTOMY CURRENT MEDICATIONS Current Facility-Administered Medications: ??? pantoprazole (PROTONIX) injection 40 mg, 40 mg, Intravenous, Once, Terry Bae MD Current Outpatient Prescriptions: ??? albuterol sulfate HFA 108 (90 BASE) MCG/ACT inhaler, Inhale 2 puffs into the lungs every 6 (six) hours as needed for Wheezing., Disp: , Rfl: ??? alprazolam 2 MG tablet, Take 2 mg by mouth 3 (three) times daily as needed. , Disp: , Rfl: ??? atenolol 100 MG tablet, Take 100 mg by mouth daily., Disp: , Rfl: ??? fluticasone propionate 50 MCG/ACT nasal spray, 1 spray by Nasal route daily., Disp: , Rfl: ??? omeprazole 20 MG capsule, Take 20 mg by mouth daily., Disp: , Rfl: ??? escitalopram 20 MG tablet, Take 40 mg by mouth daily. , Disp: , Rfl: ALLERGIES Allergies Allergen Reactions ??? Pepcid [Famotidine] Shortness of Breath ??? Bactrim [Sulfamethoxazole-Trimethoprim] Hives ??? Contrast [Iodine] Hives ??? Keflex [Cephalexin] Hives ??? Levofloxacin Unknown ??? Lidocaine Angioedema ??? Oxycodone Hives ??? Zithromax [Azithromycin] Hives ??? Paxil [Paroxetine] Anxiety FAMILY HISTORY Family History Problem Relation Age of Onset ??? Cancer Mother ??? Stroke Father SOCIAL HISTORY Social History Social History ??? Marital status: Spouse name: N/A ??? Number of children: N/A ??? Years of education: N/A Social History Main Topics ??? Smoking status: Never Smoker ??? Smokeless tobacco: Never Used ??? Alcohol use No ??? Drug use: No ??? Sexual activity: Not Asked Other Topics Concern ??? None Social History Narrative REVIEW OF SYSTEMS Constitutional: see hpi Eyes: Denies photophobia or discharge. HENT: Denies sore throat or ear pain. Respiratory: Denies cough or shortness of breath. Cardiovascular: see hpi GI: see hpi Musculoskeletal: Denies back pain. Skin: Denies rash. Neurologic: see hpi Endocrine: Denies polyuria or polydypsia. Lymphatic: Denies swollen glands. Psychiatric: Denies depression, suicidal ideation or homicidal ideation. See HPI for further details. All systems negative except as marked. PHYSICAL EXAM VITAL SIGNS: Filed Vitals: 01/17/18 2044 01/17/18 2048 01/17/18 2055 01/17/18 2230 BP: 127/88 144/84 130/77 Pulse: 63 61 57 Resp: 18 Temp: 98.7 ??F (37.1 ??C) TempSrc: Oral SpO2: 95% 98% 98% Weight: 128.2 kg (282 lb 10.1 oz) 128.4 kg (283 lb) Height: 6' 2 (1.88 m) 6' 2 (1.88 m) Constitutional: Well developed, Well nourished, No acute distress, Non-toxic appearance. HENT: Normocephalic, Atraumatic, Bilateral external ears normal, Oropharynx moist, No oral exudates, Nose normal. Eyes: PERRL, EOMI, Conjunctiva normal, No discharge. Neck- Normal range of motion, No tenderness, Supple, No stridor. Respiratory: Normal breath sounds, No respiratory distress. Cardiovascular: Normal heart rate, Normal rhythm GI: Bowel sounds normal, Soft, No tenderness, No masses, No pulsatile masses. Musculoskeletal: Intact distal pulses, No edema, No tenderness, No cyanosis, No clubbing. Good range of motion in all major joints. No tenderness to palpation or major deformities noted. Back- No tenderness. Integument: Warm, Dry, No erythema, No rash. Lymphatic: No lymphadenopathy noted. Neurologic: Alert & oriented x 3, Normal motor function, Normal sensory function, No focal deficits noted. Psychiatric: Affect normal, Judgment normal, Mood normal. Pulse Oximetry Interpretation Saturation: 98% Oxygen Delivery: ra Interpretation: normal Rhythm Strip Interpretation (interpreted by ED provider) Rhythm: sinus Ventricular Rate: 60 bpm EKG (interpreted by ED provider) January 17, 2018 8:54 PM sinus rhythm with a ventricular rate of 60 bpm, baseline artifact, no acute ischemic of normality noted, QT/QTc: 395/396. January 17, 2018 9:28 PM sinus rhythm with a ventricular rate of 60 bpm, no acute ischemic abnormality noted, QT/QTc: 406/106. RADIOLOGY I have independently reviewed all imaging for today's visit. Xr Chest Pa+lat Result Date: 12/23/2017 EXAMINATION: Chest X-Ray 2 View EXAM DATE/TIME: 12/23/2017 5:59 PM REASON FOR EXAM: chest pain COMPARISON: 11/13/2017 TECHNIQUE: PA and lateral views of the chest were obtained. FINDINGS: Heart size is within normal limits. Pulmonary vasculature is within normal limits. There is no large pleural effusion or pneumothorax. There is no focal infiltrate or consolidative change. =====IMPRESSION:===== 1. No acute cardiopulmonary findings. Xr Chest Portable Result Date: 01/17/2018 EXAM: CHEST RADIOGRAPH INDICATION: Left chest pain.] Upper arm spider right. TECHNIQUE: Upright Portable AP view COMPARISON: CXR 12/23/2017 FINDINGS: When accounting for low lung volumes stable cardiomediastinal silhouette. No overt congestion, focal lung consolidation, clinically significant size pleural effusion, pneumothorax, or parahilar opacity/peribronchial cuffing. Some bibasilar hazy opacities attributed to atelectasis and/or summation artifact. The right CPA is not completely included in the [id number] thereby limiting evaluation of this area. Minimal osseous degenerative changes. IMPRESSION: Low lung volumes however no acute pulmonary process radiographically demonstrated. RESS NOTES 2322 -- patient called me back to the room for a third time to discuss additional questions, wants to know why he is tired all the time, why we were not checking his iron levels, if he could have chronic sinus infections, states he has lots of specialists but no PMD. Tammy PCT present 0015 -- discharge discussion with Neisha RAMESH with patient and significant other, we reviewed today's evaluation, patient adding additional concerns including night sweats, intermittent dizziness, intermittent left sided abd pain (no tenderness in the sinuses, no dizziness currently, not febrile, no abdominal tenderness), wants to know why he sleeps all the time and is lethargic and weak and can't get his energy back. 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 I provided referrals for primarycare physicians. The patient/spouse were appreciative and stated several times that we(I) did a great job though he was not completely pleased with the prescriptions because he preferred promethazine. Differential diagnosis: Differential diagnosis includes: ACS, Aortic dissection, Pneumothorax, Pulmonary Embolus, Ish/pericarditis, Esophageal abnormality, GI etiology, Pneumonia, Atypical/Non-cardiac (MSK, etc) ED COURSE & MEDICAL DECISION MAKING Pertinent Labs & Imaging studies reviewed. (See chart for details) Results for orders placed or performed during the hospital encounter of 01/17/18 CBC W/DIFF AUTOMATED Result Value Ref Range WBC 5.1 4.8 - 10.8 x10'3/uL RBC 6.15 (H) 4.70 - 6.10 x10'6/uL HGB 13.0 (L) 14.0 - 18.0 G/DL HCT 43.5 43.0 - 54.0 % MCV 70.7 (L) 80.0 - 94.0 FL MCH 21.1 (L) 27.0 - 31.0 PG MCHC 29.9 (L) 32.0 - 36.0 G/DL RDW 19.6 (H) 11.5 - 14.5 % PLT 231 130 - 400 x10'3/uL MPV 9.1 (L) 9.3 - 12.2 FL BASOPHILS 0.6 0.0 - 1.0 % EOSINOPHILS 2.7 1.0 - 3.0 % NEUTROPHILS 59.6 43.0 - 65.0 % LYMPHOCYTES 29.4 20.0 - 46.0 % MONOCYTES 7.5 5.0 - 12.0 % IMMATURE GRANS 0.2 0.0 - 1.0 % RBC MORPHOLOGY SLIDE REVIEWED PLT MORPH. LARGE PLATELETS PATHOLOGIST COMMENT PATHOLOGIST REVIEW TO FOLLOW. COMPREHENSIVE METABOLIC PANEL Result Value Ref Range GLUCOSE 93 70 - 99 MG/DL BUN 13 7 - 18 MG/DL CREATININE 1.13 0.7 - 1.3 MG/DL SODIUM 143 136 - 145 MMOL/L POTASSIUM 3.6 3.5 - 5.1 MMOL/L CHLORIDE 108 100 - 108 MMOL/L CO2 29.8 21 - 32 MMOL/L CALCIUM 8.8 8.5 - 10.1 MG/DL TOTAL BILIRUBIN 1.3 (H) 0.2 - 1.2 MG/DL TOTAL PROTEIN 8.0 6.4 - 8.2 G/DL ALBUMIN 4.1 3.4 - 5.0 G/DL AST 38 (H) 15 - 37 U/L ALT 55 16 - 60 U/L ALK PHOS 78 50 - 136 U/L ANION GAP 8.8 8 - 20 MMOL/L BUN CREATININE RATIO 11.5 6 - 26 A/G RATIO 1.1 1.0 - 2.0 RATIO eGFR Non-Afr. Amer. 78 (L) >90 ML/MIN/1.73 M2 eGFR Afr. Amer. >90 >90 ML/MIN/1.73 M2 TROPONIN, QUANT Result Value Ref Range TROPONIN I 0.027 <0.045 ng/mL. TROPONIN, QUANT Result Value Ref Range TROPONIN I 0.028 <0.045 ng/mL. CKMB,(MB FRACTION ONLY) Result Value Ref Range CK-MB 1.0 0.5 - 3.6 NG/ML CK (CPK) Result Value Ref Range CPK 142 35 - 232 U/L LIPASE Result Value Ref Range LIPASE 180 73 - 393 UNITS/L PROTIME/INR, VENOUS Result Value Ref Range Protime 11.5 9.6 - 12.2 SEC INR 1.1 PARTIAL THROMBOPLASTIN TIME,PTT Result Value Ref Range PTT 42.6 (H) 25.5 - 37.6 SEC Amount and/or Complexity of Data Reviewed Triage notes and available nursing notes reviewed Clinical lab tests: ordered and reviewed Tests in the radiology section: ordered and reviewed Independent visualization of images, tracings: yes Decide to obtain previous medical records or to obtain history from someone other than the patient:yes Review and summarize past medical records: yes Discuss the patient with other providers: yes FINAL IMPRESSION SNOMED CT(R) 1. Epigastric pain EPIGASTRIC PAIN 2. 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 He also wants zofran ODT because the oral pills don't work for him. Heavy overlay of psychiatric component making thisvisit challenging. He is adament that he needs an antibiotic for the area on his arm, there is no surrounding redness, on my exam there is no drainage, he has a shallow open area with ~1mm surrounding red border with no signs of cellulitis, no induration and no purulence, it looks most like an insect bite, could be a spider bite though there is no significant surrounding tissue changes, no systemic symptoms which make me concerned about systemic envenomation, will discharge home with local wound care, topical abx per his preference, outpt f/ui. Terry Bae M.D., [facility] Emergency Medicine Physician Terry Bae MD 01/18/18 0017 * Seema Fish LPN - 01/17/2018 8:55 PM CDT 1 unsuccessful IV attempt to left ac. 1 unsuccessful IV attempt to right ac. * Rose Almanzar RN - 01/17/2018 8:50 PM CDT Pt was here for a spider bite that was evaluated and treated at on Wednesday and was told to putneosporin on it. Pt stated it is draining yellow. Then pt stated at 1930 while he was getting readyto come to the ER He developed left chest pain with sob. Pt stated that he has also been running fevers and has hx of GERD ROSE ALMANZAR RN documented in this encounter Plan of Treatment Not on file documented as of this encounter Procedures Procedure Name Priority Date/Time Associated Diagnosis Comments TROPONIN, QUANT STAT 01/17/2018 11:10 PM CDT ECG 12-LEAD STAT 01/17/2018 10:31 PM CDT ECG 12-LEAD STAT 01/17/2018 10:29 PM CDT PARTIAL THROMBOPLASTIN TIME,PTT STAT 01/17/2018 10:26 PM CDT PROTHROMBIN TIME, VENOUS STAT 01/17/2018 10:26 PM CDT LIPASE STAT 01/17/2018 10:26 PM CDT XR CHEST PORTABLE STAT 01/17/2018 9:1 8 PM CDT COMPREHENSIVE METABOLIC PANEL STAT 01/17/2018 9:04 PM CDT CKMB(MB FRACTION ONLY) STAT 8 9:04 PM CDT CBC W/DIFF AUTOMATED STAT 01/17/2018 9:04 PM CDT TROPONIN, QUANT STAT 01/17/2018 9:04 PM CDT CK (CPK) STAT 01/17/2018 9:04 PM CDT documented in this encounter Results * TROPONIN, QUANT (01/17/2018 11:10 PM CDT) TROPONIN I 0.028 <0.045 ng/mL. 01/17/2018 11:49 PM CDT [facility] Comment: HIGH DOSES OF BIOTIN MAY INTERFERE WITH THIS TEST RESULT. CORRELATION TO CLINICAL HISTORY AND PRESENTATION RECOMMENDED. 01/17/2018 11:1 0 PM CDT us Terry Bae MD LABORATORY Final Resu lt [facility] [address] [place] [address], * ECG 12-Lead (01/17/2018 10:31 PM CDT) 01/17/2018 10:3 1 PM CDT Narrative [facility] - 01/17/2018 10:31 PM CDT ?[facility] ? [address] [facility] ? Test Date: ?2018-01-17 Pat Name: ? CARLOS CORPUS ? Department: ?? 41 ? Room: ? [id number] Gender: ? Male ? 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 lp : ?1970 ? Requested By: TERRY BAE Order Number: [id number] ? Reading MD: ?? Freedom Mauricio ? Measurements Intervals ?[place] ? Rate: ? 60 ? P: ?21 WV: ? 165 ?QRS: ?25 QRSD: ? 100 ?T: ?-5 QT: ? 395 ? QTc: ?397 ? Interpretive Statements SINUS RHYTHM early R wave progression Compared to ECG 12/23/2017 17:28:51 early R wave progression now apparent CRITICAL ALERT ISSUED ON 01-17-2018 20:58:22 Procedure Note Freedom Mauricio MD - 01/17/2018 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 ? [address] [facility] ? Test Date: ?2018-01-17 Pat Name: ? CARLOS KELLY ? Department: ?? 41 ? Room: ? [id number] Gender: ? Male ? 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 lp : ?1970 ? Requested By: TERRY BAE Order Number: [id number] ? Reading MD: ?? Freedom Mauricio ? Measurements Intervals ?[place] ? Rate: ? 60 ? P: ?11 WV: ? 158 ?QRS: ?28 QRSD: ? 94 ? T: ?-6 QT: ? 406 ? QTc: ?406 ? Interpretive Statements SINUS RHYTHM early r wave progression NONSPECIFIC ST & T-WAVE ABNORMALITY Compared to ECG 01/17/2018 20:54:15 no sig. 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 change CRITICAL ALERT ISSUED ON 01-17-2018 21:30:34 Terry Bae MD ECG ORDERABLES Final Resu lt [facility] * (ABNORMAL) PARTIAL THROMBOPLASTIN TIME,PTT (01/17/2018 10:26 PM CDT) Pathologist [facility] PTT 42.6(H) 25.5 - 37.6 SEC 01/17/2018 10:53 PM CDT [facility] 01/17/2018 10:2 6 PM CDT Terry Bae MD LABORATORY Final Resu lt [facility] [address] [place] [address], [place] [phone] * PROTIME/INR, VENOUS (01/17/2018 10:26 PM CDT) PROTIME 11.5 9.6 - 12.2 SEC 01/17/2018 10:53 PM CDT [facility] INR 1.1 01/17/2018 10:53 PM CDT [facility] Comment: Recommended INR Therapeutic Goals: ??2.0-3.0 Routine Therapy ??2.5-3.5 Mechanical Prosthetic Valves (High Risk) ??3.0-4.0 Acute MN (to prevent Systemic Embolism) The INR is used only for patients on stable oral anticoagulant therapy. It makes no significant contribution to the diagnosis or treatment of patients whose Protime is prolonged for other reasons. 01/17/2018 10:2 6 PM CDT Terry Bae MD LABORATORY Final Resu lt Performing Organization Address City/[facility]/ZIP Co de Phone Number [facility] [address] [place] [id number], [place] [phone] * LIPASE (01/17/2018 10:26 PM CDT) LIPASE 180 73 - 393 UNITS/L 01/17/2018 11:53 PM CDT [facility] 01/17/2018 10:2 6 PM CDT us Terry Bae MD LABORATORY Final Resu lt Performing Organization Address City/[facility]/ZIP Co de Phone Number [facility] [address] [place] [address], [place] [phone] * XR CHEST PORTABLE (01/17/2018 9:18 PM CDT) Anatomical Region Laterality Modality Chest Fluoroscopy 01/17/2018 9:21 PM CDT Impressions 01/17/2018 9:23 PM CDT IMPRESSION: Low lung volumes however no acute pulmonary process radiographically demonstrated. ?? Narrative 01/17/2018 9:23 PM CDT EXAM: CHEST RADIOGRAPH INDICATION: Left chest pain.] Upper arm spider right. TECHNIQUE: Upright Portable AP view COMPARISON: CXR 12/23/2017 FINDINGS: When accounting for low lung volumes stable cardiomediastinal silhouette. No overt congestion, focal lung consolidation, clinically significant size pleural effusion, pneumothorax, or parahilar opacity/peribronchial cuffing. Some bibasilar hazy opacities attributed to atelectasis and/or summation artifact. The right CPA is not completely included in the [id number] thereby limiting evaluation of this area. Minimal osseous degenerative changes. Procedure Note Lizzie Le MD - 01/17/2018 EXAM: CHEST RADIOGRAPH INDICATION: Left chest pain.] Upper arm spider right. TECHNIQUE: Upright Portable AP view COMPARISON: CXR 12/23/2017 FINDINGS: When accounting for low lung volumes stable cardiomediastinal silhouette. No overt congestion, focal lung consolidation, clinically significant size pleural effusion, pneumothorax, or parahilar opacity/peribronchial cuffing. Some bibasilar hazy opacities attributedto atelectasis and/or summation artifact. The right CPA is not completely included in the [id number] thereby limiting evaluation of this area. Minimal osseous degenerative changes. IMPRESSION: Low lung volumes however no acute pulmonary process radiographically demonstrated. Terry Bae MD GENERAL IMAGING Final Resu lt * CK (CPK) (01/17/2018 9:04 PM CDT) CPK 142 35 - 232 U/L 01/17/2018 9:45 PM CDT [facility] 01/17/2018 9:04 PM CDT Terry Bae MD LABORATORY Final Resu lt [facility] [address] [place] [address], * CKMB,(MB FRACTION ONLY) (01/17/2018 9:04 PM CDT) CK-MB 1.0 0.5 - 3.6 NG/ML 01/17/2018 9:45 PM CDT [facility] Comment: HIGH DOSES OF BIOTIN MAY INTERFERE WITH THIS TEST RESULT. CORRELATION TO CLINICAL HISTORY AND PRESENTATION RECOMMENDED. 01/17/2018 9:04 PM CDT Terry Bae MD LABORATORY Final Resu lt [facility] [address] [place] [address], [place] [phone] * TROPONIN, QUANT (01/17/2018 9:04 PM CDT) Pathologist [facility] TROPONIN I 0.027 <0.045 ng/mL. 01/17/2018 9:45 PM CDT [facility] Comment: HIGH DOSES OF BIOTIN MAY INTERFERE WITH THIS TEST RESULT. CORRELATION TO CLINICAL HISTORY AND PRESENTATION RECOMMENDED. 01/17/2018 9:04 PM CDT Terry Bae MD LABORATORY Final Resu lt [facility] [address] [place] [address], [place] [phone] * (ABNORMAL) COMPREHENSIVE METABOLIC PANEL (01/17/2018 9:04 PM CDT) [facility] GLUCOSE 93 70 - 99 MG/DL 01/17/2018 9:45 PM CDT [facility] BUN 13 7 - 18 MG/DL 01/17/2018 9:45 PM CDT [facility] CREATININE S/P/B 1.13 0.7 - 1.3 MG/DL 01/17/2018 9:45 PM CDT [facility] SODIUM S/P/B 143 136 - 145 MMOL/L 01/17/2018 9:45 PM CDT [facility] POTASSIUM S/P/B 3.6 3.5 - 5.1 MMOL/L 01/17/2018 9:45 PM CDT [facility] CHLORIDE S/P/B 108 100 - 108 MMOL/L 01/17/2018 9:45 PM CDT [facility] CO2 29.8 21 - 32 MMOL/L 01/17/2018 9:45 PM CDT [facility] CALCIUM S/P/B 8.8 8.5 - 10.1 MG/DL 01/17/2018 9:45 PM T [facility] BILIRUBIN TOTAL S/P/B 1.3(H) 0.2 - 1.2 MG/DL 01/17/2018 9:45 PM CDT [facility] TOTAL PROTEIN S/P/B 8.0 6.4 - 8.2 G/DL 01/17/2018 9:45 PM T [facility] ALBUMIN S/P/B 4.1 3.4 - 5.0 G/DL 01/17/2018 9:45 PM T [facility] AST 38(H) 15 - 37 U/L 01/17/2018 9:45 PM CDT [facility] ALT 55 16 - 60 U/L 01/17/2018 9:45 PM CDT [facility] ALKALINE PHOSPHATASE S/P/B 78 50 - 136 U/L 01/17/2018 9:45 PM CDT [facility] ANION GAP 8.8 8 - 20 MMOL/L 01/17/2018 9:45 PM T [facility] BUN CREATININE RATIO 11.5 6 - 26 01/17/2018 9:45 PM CDT [facility] A/G RATIO 1.1 1.0 - 2.0 RATIO 01/17/2018 9:45 PM CDT [facility] EGFR NON-AFR. AMER. 78(L) >90 ML/MIN/1.7 3 M2 01/17/2018 9:45 PM CDT [facility] EGFR AFR. AMER. >90 >90 ML/MIN/1.7 3 M2 01/17/2018 9:45 PM CDT [facility] Comment: NOTE: eGFR is not calculated for patients <18 years of age. This is an estimated GFR (CKD EPI) and should not be used for calculating drug doses. 01/17/2018 9:04 PM CDT us Terry Bae MD LABORATORY Final Resu lt [facility] [address] [place] [address], [place] [phone] * (ABNORMAL) CBC W/DIFF AUTOMATED (01/17/2018 9:04 PM CDT) WBC 5.1 4.8 - 10.8 x10'3/uL 01/17/2018 10:17 PM CDT [facility] RBC 6.15(H) 4.70 - 6.10 x10'6/uL 01/17/2018 10:17 PM CDT [facility] HGB 13.0(L) 14.0 - 18.0 G/DL 01/17/2018 10:17 PM CDT [facility] HCT 43.5 43.0 - 54.0 % 01/17/2018 10:17 PM CDT [facility] MCV 70.7(L) 80.0 - 94.0 FL 01/17/2018 10:17 PM CDT [facility] MCH 21.1(L) 27.0 - 31.0 PG 01/17/2018 10:17 PM CDT [facility] MCHC 29.9(L) 32.0 - 36.0 G/DL 01/17/2018 10:17 PM T [facility] RDW 19.6(H) 11.5 - 14.5 % 01/17/2018 10:17 PM CDT [facility] PLT 231 130 - 400 x10'3/uL 01/17/2018 10:17 PM T [facility] MPV 9.1(L) 9.3 - 12.2 FL 01/17/2018 10:17 PM T [facility] BASOPHILS 0.6 0.0 - 1.0 % 01/17/2018 10:25 PM T [facility] EOSINOPHILS 2.7 1.0 - 3.0 % 01/17/2018 10:25 PM T [facility] NEUTROPHILS % 59.6 43.0 - 65.0 % 01/17/2018 10:25 PM T [facility] LYMPHOCYTES % 29.4 20.0 - 46.0 % 01/17/2018 10:25 PM T [facility] MONOCYTES % 7.5 5.0 - 12.0 % 01/17/2018 10:25 PM T [facility] IMMATURE GRANS % 0.2 0.0 - 1.0 % 01/17/2018 10:25 PM T [facility] RBC MORPHOLOGY SLIDE REVIEWED 2017 10:25 PM T [facility] Comment: 2+ ANISOCYTOSIS 1+ POLYCHROMASIA 1+ MICROCYTES 1+ POIKILOCYTOSIS 1+ OVALOCYTES PLT MORPH. LARGE PLATELETS 01/17/2018 10:25 PM T [facility] PATHOLOGIST COMMENT PATHOLOGIST REVIEW ADDED TO REPORT 01/18/2018 8:48 PM CDT [facility] Comment: AGREE WITH CBC DATA. MILD MICROCYTIC ANEMIA. POSSIBLE ETIOLOGIES INCLUDE THALASSEMIA, IRON DEFICIENCY, AND ANEMIA OF CHRONIC DISEASE. ??IRON STUDIES AND HEMOGLOBIN ELECTROPHERESIS MAY BE HELPFUL. REVIEWED BY KAREN CR M.D., PATHOLOGIST PATH REVIEW ADDED TO REPORT [id number] SMN 01/17/2018 9:04 PM CDT us Terry Bae MD LABORATORY Edited Res ult - Final [facility] [address] [place] [address], [place] [phone] documented in this encounter Visit Diagnoses Diagnosis Epigastric pain- Primary Abdominal pain, epigastric Bite wound of right upper arm, initial encounter documented in this encounter Administered Medications Inactive Administered Medications - up to 3 most recent administrations Medication Order MAR Action Action Date Dose Rate Site [id number] (MAALOX, [place] EXTRA STRENGTH) [id number] mg/30mL suspension 10 mL, Oral, Once, 1 dose, On Wed01/17/18 at 2215, Shake Well Given 01/17/2018 10:22 PM CDT 10 mLs potassium chloride (K-TAB) tablet 20 mEq 20 mEq, Oral, Once, 1 dose, On Wed01/17/18 at 2215 Given 01/17/2018 10:28 PM CDT 20 mEq sodium chloride 0.9% bolus infusion SOLN 1,000 mL 1,000 mL, Intravenous, Administer over 15 Minutes, Bolus (Once), 1 dose, On Wed01/17/18 at 2200 New Bag 01/17/2018 10:23 PM CDT 1,000 mLs documented in this encounter Active and Recently Administered Medications Times are shown in CDT. Scheduled Medication Order 01/16/2018 01/17/2018 01/18/2018 [id number] (MAALOX, [place] EXTRA STRENGTH) [id number] mg/30mL suspension (COMPLETED) 10 mL, Oral, Once, 1 dose, On Wed01/17/18 at 2215, Shake Well 2222 (Given - Provider: Chace Vasquez, DOMITILA) pantoprazole (PROTONIX) injection 40 mg 40 mg, Intravenous, Once, 1 dose, On Wed01/17/18 at 2200, Prior to administration, dilute each 40 mg vial with 10 mls NS. Administer IV push over 2 minutes. 2225 (Not Given - Provider: Leslie Vasquez RN - Reason: Patient/family declined - Comment: pt refused med. md aware) potassium chloride (K-TAB) tablet 20 mEq (COMPLETED) 20 mEq, Oral, Once, 1 dose, On Wed01/17/18 at 2215 2228 (Given - Provider: Chace aVsquez RN) sodium chloride 0.9% bolus infusion SOLN 1,000 mL (COMPLETED) 1,000 mL, Intravenous, Administer over 15 Minutes, Bolus (Once), 1 dose, On Wed01/17/18 at 2200 2223 (New Bag - Provider: Adriana Vasquez RN)2313 (Infusion Stop Time - Provider: Leslie Vasquez, DOMITILA - Comment: pt refusing remainder of dose. made aware) documented in this encounter
--- OUTSIDE RECORDS SUMMARY | 2024-09-10 03:49 | XMS_ITS | Encounter Summary ---
Author Organization [facility] Address [address] [place] [address]. 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 Name Role Phone Md Generic Conversion Primary [...] Care Team (Late st Contact Info) Description 09/25/2015 Abstract [facility] Family Medicine - [address] [phone] [place] [address] Social History Tobacco Use Types Packs/Day Years Used Date Smoking Tobacco: Never Assessed Sex and Gender Information Value Date Recorded Sex Assigned at Not on file Legal Sex Male 10:39 PM CDT Gender Identity Not on file Sexual Orientation Not on file documented as of this encounter Last Filed Vital Signs Vital Sign Reading Time Taken Comments Blood Pressure 122/84 09/25/2015 11:43 AM BED PLACEMENT COORDINATOR Pulse 101 09/25/2015 11:35 AM BED PLACEMENT COORDINATOR Temperature - - Respiratory Rate - - Oxygen Saturation - - Inhaled Oxygen Concentration - - Weight 138.3 kg (305 lb) 09/25/2015 11:35 AM BED PLACEMENT COORDINATOR Height 188 cm (6' 2 ) 09/25/2015 11:35 AM BED PLACEMENT COORDINATOR Body Mass Index 39.16 09/25/2015 11:35 AM BED PLACEMENT COORDINATOR documented in this encounter Progress Notes * Jose D Mckay MD - 09/25/2015 11:00 AM CST Message Message: Spoke with patient at length regarding medication. Evidently recently started on spironolactone and developed a rash. Instructed patient to stop this medication and followup with his PCP. Active Problems 1. Abdominal pain (789.00) (R10.9) 2. Abnormal liver function test (790.6) (R94.5) 3. Acute otitis media (382.9) (H66.90) 4. [...] (473.9) (J32.9) 22. Sleep apnea (780.57) (G47.30) Current Meds 1. ALPRAZolam 2 MG Oral Tablet; TAKE 1 TABLET 3 TIMES DAILY NEEDED and 1/2 tab at night; Therapy: [id number] to (Last Rx:[id number]) Ordered 2. Amoxicillin-Pot Clavulanate 875-125 MG Oral Tablet; TAKE 1 TABLET EVERY 12 HOURS DAILY; Therapy: 42Flu6048 to (Evaluate:43Ezf8801); Last Rx:[id number] Ordered 3. Atenolol 100 MG Oral Tablet; Therapy: 43Rga3140 to Recorded 4. BuPROPion HCl - 100 MG Oral Tablet; TAKE 1 TABLET 3 times daily; Therapy: 05Mar2014 to (Evaluate:03Mav8760) Requested for: 20Apr2014; Last Rx:20Apr2014 Ordered 5. Citalopram Hydrobromide 40 MG Oral Tablet; TAKE 1 TABLET BY MOUTH EVERY DAY; Therapy: 15Jan2014 to (Evaluate:20May2014); Last Rx:20Apr2014 Ordered 6. Claritin 10 MG Oral Capsule; Therapy: (Recorded:04Jan2014) to Recorded 7. Farxiga 5 MG Oral Tablet; 1 tab daily; Therapy: 20Apr2014 to (Evaluate:18May2014); Last Rx:20Apr2014 Ordered 8. Fluticasone Propionate 50 MCG/ACT Nasal Suspension; USE 1 TO 2 SPRAYS IN EACH NOSTRIL ONCE DAILY Requested for: 05Mar2014; Last Rx:05Mar2014 Ordered 9. Hyoscyamine Sulfate 0.125 MG Oral Tablet; TAKE 1 TABLET 3-4 TIMES DAILY NEEDED; Therapy: 15Jan2014 to (Evaluate:70Srk0926); Last Rx:15Jan2014 Ordered 10. Hyoscyamine Sulfate 0.125 MG Sublingual Tablet Sublingual; Therapy: 17Apr2015 to Recorded 11. Lisinopril 10 MG Oral Tablet; Take 1 tablet daily; Therapy: 20Apr2014 to (Evaluate:20May2014); Last Rx:[id number] Ordered 12. Montelukast Sodium 10 MG Oral Tablet; Therapy: 25Jun2015 to Recorded 13. Omeprazole 40 MG Oral Capsule Delayed Release; TAKE 1 CAPSULE Daily Requested for: 20Apr2014; Last Rx:[id number] Ordered 14. Promethazine HCl - 25 MG Oral Tablet; TAKE 1 TABLET 3 TIMES DAILY NEEDED; Last Rx:20Apr2014 Ordered 15. Sucralfate 1 GM Oral Tablet; Therapy: 17May2015 to Recorded 16. Tylenol TABS; Therapy: (Recorded:04Jan2014) to Recorded Allergies 1. Bactrim DS TABS 2. Cephalexin Monohydrate TABS 3. Doxycycline Monohydrate CAPS 4. Levaquin TABS 5. Lisinopril TABS 6. Percocet TABS 7. Sulfa Drugs 8. Contrast Dye Plan 1. Hyoscyamine Sulfate 0.125 MG Oral Tablet Rx By: Balta Costello; Dispense: 30 Days ; #:120 Tablet; Refill: 2; For: Abdominal pain; LAURA = N; Print Rx; Last Updated By: Paulina Nicholas; 09/25/2015 11:37:42 AM 2. Amoxicillin 875 MG Oral Tablet; TAKE 1 TABLET EVERY 12 HOURS DAILY Rx By: Diana Caceres; Dispense: 10 Days ; #:20 Tablet; Refill: 0; For: Acute sinusitis; LAURA = N; Verified Transmission to [facility]; Last Updated By: Marty Nunes; 09/25/2015 12:31:20 PM 3. BuPROPion HCl - 100 MG Oral Tablet Rx By: Balta Costello; Dispense: 30 Days ; #:90 Tablet; Refill: 0; For: Anxiety; LAURA = N; Print Rx; Last Updated By: Paulina Nicholas; 09/25/2015 11:37:42 AM 4. Citalopram Hydrobromide 40 MG Oral Tablet Rx By: Balta Costello; Dispense: 30 Days ; #:30 Tablet; Refill: 0; For: Anxiety; LAURA = N; Print Rx; Msg to Pharmacy: 1/2 tab daily for 2-3 weeks.; Last Updated By: Paulina Nicholas; 09/25/2015 11:37:42 AM 5. Pulmonary Referral Outpatient eval and treat Status: Need Information - Financial Authorization Requested for: 25Sep2015 Ordered; For: Asthma; Ordered By: Diana Caceres Performed: Due: 09Oct2015; Last Updated By: Paulina Nicholas; 09/25/2015 1:48:57 PM Referral sent to Dr. Andrade, They will call jonathan to schedule an appt. 6. Farxiga 5 MG Oral Tablet Rx By: Balta Costello; Dispense: 28 Days ; #:28 Tablet; Refill: 0; For: Diabetes mellitus; LAURA = N; Record; Last Updated By: Paulina Nicholas; 09/25/2015 11:37:43 AM 7. Bagel Maker Referral Outpatient eval and treat Status: Need Information - Financial Authorization Requested for: 25Sep2015 Ordered; For: Diabetes mellitus, type 2; Ordered By: Diana Caceres Performed: Due: 09Oct2015; LastUpdated By: Paulina Nicholas; 09/25/2015 1:52:00 PM Referral sent to [facility], they will call patient to schedule an appt[facility] 8. Psychiatry Referral Outpatient eval and treat Status: Need Information - Financial Authorization Requested for: 25Sep2015 Ordered; For: Generalized anxiety disorder; Ordered By: Diana Caceres Performed: Due: 09Oct2015 9. Lisinopril 10 MG Oral Tablet Rx By: Balta Costello; Dispense: 30 Days ; #:30 Tablet; Refill: 0; For: Hypertension; LAURA = N; Print Rx; Last Updated By: Paulina Nicholas; 09/25/2015 11:37:43 AM 10. Hydrochlorothiazide 12.5 MG Oral Tablet; TAKE 1 TABLET DAILY Rx By: Diana Caceres; Dispense: 30 Days ; #:30 Tablet; Refill: 1; For: Hypertension; LAURA = N; Verified Transmission to [facility]; Last Updated By: Marty Nunes; 09/25/20153:31:25 PM 11. Basic Metabolic Prof ( BMP ); Status:Hold For - Manual Activation; Requested for:25Sep2015; Perform:[facility]; Due:[id number];Ordered; For:Hypertension; Ordered By:Diana Caceres; 12. CBC W Differential; Status:Hold For - Manual Activation; Requested for:25Sep2015; Perform:[facility]; Due:[id number];Ordered; For:Hypertension; Ordered By:Diana Caceres; 13. Hepatitis C Virus ( HCV ) Ab; Status:Hold For - Manual Activation; Requested for:25Sep2015; Perform:[facility]; Due:[id number];Ordered; For:Hypertension; Ordered By:Diana Caceres; 14. Lipid Profile; Status:Hold For - Manual Activation; Requested for:25Sep2015; Perform:[facility]; Due:[id number];Ordered; For:Hypertension; Ordered By:Diana Caceres; 15. TSH W Reflex Free T4; Status:Hold For - Manual Activation; Requested for:25Sep2015; Perform:[facility]; Due:28Brp1851;Ordered; For:Hypertension; Ordered By:Diana Caceres; 16. Amoxicillin-Pot Clavulanate 875-125 MG Oral Tablet Rx By: Balta Costello; Dispense: 14 Days ; #:28 Tablet; Refill: 0; For: Sinusitis; LAURA = N; Print Rx;Last Updated By: Paulina Nicholas; 09/25/2015 11:15:45 AM 17. Otolaryngology Referral Outpatient sleep study needed, eval and treat please Status: Need Information - Financial Authorization Requested for: 25Sep2015 Ordered; For: Sleep apnea; Ordered By: Diana Caceres Performed: Due: 09Oct2015; Last Updated By: Paulina Nicholas; 09/25/2015 1:51:01 PM Referral sent to [facility], They will call patien to schedule appt. [facility] 18. ALPRAZolam 1 MG Oral Tablet Rx By: BENJIE GONZALES; Dispense: 30 Days ; #:90 TABS; Refill: 0; LAURA = N; Record; Last Updated By: Paulina Nicholas; 09/25/2015 11:37:43 AM 19. AmLODIPine Besylate 10 MG Oral Tablet Rx By: BENJIE GONZALES; Dispense: 30 Days ; #:30 TABS; Refill: 0; LAURA = N; Record; Last Updated By: Paulina Nicholas; 09/25/2015 11:37:43 AM 20. AmLODIPine Besylate 5 MG Oral Tablet Rx By: BENJIE GONZALES; Dispense: 30 Days ; #:30 TABS; Refill: 0; LAURA = N; Record; Last Updated By: Paulina Nicholas; 09/25/2015 11:37:43 AM 21. Jlcnaditer-NCXD-Wympfkpt 50-325-40 MG Oral Tablet Rx By: ESTEFANY CASTILLO; Dispense: 3 Days ; #:20 TABS; Refill: 0; LAURA = N; Record; Last Updated By: Paulina Nicholas; 09/25/2015 11:37:43 AM 22. Seuojlbzge-Ecxyujp-Blbsitxv 50-325-40 MG Oral Capsule Rx By: BENJIE GONZALES; Dispense: 3 Days ; #:10 CAPS; Refill: 0; LAURA = N; Record; Last Updated By: Paulina Nicholas; 09/25/2015 11:37:43 AM 23. Claritin 10 MG Oral Capsule Dispense: 0 Days ; #: Sufficient CAPS; Refill: 0; LAURA = N; Record; Last Updated By: Paulina Nicholas; 09/25/2015 11:37:42 AM 24. Ferrous Sulfate 325 (65 Fe) MG Oral Tablet Rx By: ESTHELA COREAS; Dispense: 30 Days ; #:60 TABS; Refill: 0; LAURA = N; Record; Last Updated By: Paulina Nicholas; 09/25/2015 11:37:43 AM 25. LORazepam 1 MG Oral Tablet Rx By: BENJIE GONZALES; Dispense: 30 Days ; #:60 TABS; Refill: 0; LAURA = N; Record; Last Updated By: Paulina Nicholas; 09/25/2015 11:37:43 AM 26. MetroNIDAZOLE 500 MG Oral Tablet Rx By: SALIMA TOM; Dispense: 7 Days ; #:14 TABS; Refill: 0; LAURA = N; Record; Last Updated By: Paulina Nicholas; 09/25/2015 11:37:43 AM 27. Propranolol HCl - 40 MG Oral Tablet Rx By: QAMAR SANCHEZ; Dispense: 30 Days ; #:60 TABS; Refill: 0; LAURA = N; Record; Last Updated By: Paulina Nicholas; 09/25/2015 11:37:43 AM 28. Spironolactone 25 MG Oral Tablet Rx By: YULISA SHELLEY; Dispense: 14 Days ; #:7 TABS; Refill: 0; LAURA = N; Record; Last Updated By: Paulina Nicholas; 09/25/2015 11:37:43 AM Signatures Electronically signed by : Jose D Mckay M.D.; Sep 28 2015 11:38PM BED PLACEMENT COORDINATOR (Author) Electronically signed by : Jose D Mckay M.D.; Sep 28 2015 11:39PM BED PLACEMENT COORDINATOR (Author) * Diana Morris, PAN SHAKER - 09/25/2015 11:00 AM CST Referred By / Reason Patient was self-referred. Name: Reason: Chief Complaint Patient is being seen today to get established as a new patient. Patient states he has seen severalphysicians who have treated PTSD and anxiety. History of Present Illness 45 yo M here to establish care. His number one concern is having his xanax refilled and discuss hisBP. Anxiety He has been on multiple medications in the past and has seen several psychiatrist. He had Lorazepamfilled on 09/15 and Alprazolam refilled on 08/31. He says he is not taking his Lorazepam and is out of Xanax and wants that refilled. Denies SI or HI. Elevated BP Summer 2014 he was having pain on his left neck with h/a and some numbness in fingers and left leg dragging. He was [facility] and was checked out neg for TIA. They found that he had some pinched nerves. He went to therapy and had acupuncture that he was not happy with. Symptoms have resolved but he says he was put on Atenolol 100 mg for BP. He said he is having anxiety about this much medication. He has not taken his dose today. He did take 50 mg Atenolol BID yesterday. He denies h/a, blurry vision, or palpitations. He was prescribed HCTZ 12.5 mg a week ago and never started it. He does have it at home. Asthma He takes his albuterol f times a week. He has been taking more this week since he has been feeling increased sinus congestion. He has tried multiple maintenance medications in the past that have not helped. He says he is short of breath today and does not want a breathing Tx. He thinks this is r/t his anxiety. He would like a sleep study. He says he has sleep apnea and was suppose to have a sleepstudy but never went to get that done. He does follow GI and does not have any concerns. Pt is He said he has never had abnormal labs in the past. Review of Systems See HPI for pertinent positives. Cardiovascular: Normal. Gastrointestinal: Normal. Genitourinary: Normal. Psychiatric: anxiety. no suicidal ideation no depression Active Problems 1. Abdominal pain (789.00) (R10.9) 2. Abnormal liver function test (790.6) (R94.5) 3. Acute otitis media (382.9) (H66.90) 4. Acute sinusitis (461.9) (J01.90) 5. Anxiety (300.00) (F41.9) 6. Asthma (493.90) (J45.909) 7. Atypical chest pain (786.59) (R07.89) 8. Conjunctivitis (372.30) (H10.9) 9. Diabetes mellitus (250.00) (E11.9) 10. Diverticulosis of colon (562.10) (K57.30) 11. GERD (gastroesophageal reflux disease) (530.81) (K21.9) 12. Hyperglycemia (790.29) (R73.9) 13. Hyperlipidemia (272.4) (E78.5) 14. Hypertension (401.9) (I10) 15. Joint swelling (719.00) (M25.40) 16. Obesity (278.00) (E66.9) 17. Paresthesias (782.0) (R20.2) 18. Sinusitis (473.9) (J32.9) Family History Mother 1. Family history of hypertension (V17.49) (Z82.49) Father 2. Family history of cardiac disorder (V17.49) (Z82.49) 3. Family history of cerebrovascular accident (CVA) (V17.1) (Z82.3) 4. Family history of hypertension (V17.49) (Z82.49) Social History ? Never a smoker ?? No alcohol use ?? No caffeine use ?? Non-smoker (V49.89) (Z78.9) ?? 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 ALPRAZolam 2 MG Oral Tablet; TAKE 1 TABLET 3 TIMES DAILY NEEDED and 1/2 tab at night; Therapy: 15Jan2014 to (Last Rx:[id number]) Ordered Rx By: Balta Costello; Dispense: 0 Days ; #:135 Tablet; Refill: 0; For: Anxiety; LAURA = N; Print Rx 2. Amoxicillin-Pot Clavulanate 875-125 MG Oral Tablet; TAKE 1 TABLET EVERY 12 HOURS DAILY; Therapy: 20Apr2014 to (Evaluate:47Lvy6188); Last Rx:[id number] Ordered Rx By: Balta Costello; Dispense: 14 Days ; #:28 Tablet; Refill: 0; For: Sinusitis; LAURA = N; Print Rx 3. Atenolol 100 MG Oral Tablet; Therapy: 12Aug2015 to Recorded Rx By: BENJIE GONZALES; Dispense: 30 Days ; #:30 TABS; Refill: 0; LAURA = N; Record; Last Updated By: Paulina Nicholas; 09/25/2015 11:15:46 AM 4. BuPROPion HCl - 100 MG Oral Tablet; TAKE 1 TABLET 3 times daily; Therapy: 05Mar2014 to (Evaluate:14Gud0584) Requested for: 20Apr2014; Last Rx:[id number] Ordered Rx By: Balta Costello; Dispense: 30 Days ; #:90 Tablet; Refill: 0; For: Anxiety; LUARA = N; Print Rx 5. Citalopram Hydrobromide 40 MG Oral Tablet; TAKE 1 TABLET BY MOUTH EVERY DAY; Therapy: 15Jan2014 to (Evaluate:20May2014); Last Rx:[id number] Ordered Rx By: Balta Costello; Dispense: 30 Days ; #:30 Tablet; Refill: 0; For: Anxiety; LAURA = N; Print Rx; Msg to Pharmacy: 1/2 tab daily for 2-3 weeks. 6. Claritin 10 MG Oral Capsule; Therapy: (Recorded:04Jan2014) to Recorded Dispense: 0 Days ; #: Sufficient CAPS; Refill: 0; LAURA = N; Record; Last Updated By: Sophia Lee;09/25/2015 11:37:42 AM 7. Farxiga 5 MG Oral Tablet; 1 tab daily; Therapy: 20Apr2014 to (Evaluate:87Bxh4992); Last Rx:[id number] Ordered Rx By: Balta Costello; Dispense: 28 Days ; #:28 Tablet; Refill: 0; For: Diabetes mellitus; LAURA = N; Record 8. Fluticasone Propionate 50 MCG/ACT Nasal Suspension; USE 1 TO 2 SPRAYS IN EACH NOSTRIL ONCE DAILY Requested for: 05Mar2014; Last Rx:05Mar2014 Ordered Rx By: Balta Costello; Dispense: 0 Days ; #:1 X 16 GM Bottle; Refill: 2; For: Asthma; LAURA = N; Verified Transmission to [facility]; Last Updated By: Marty Nunes; 03/05/2014 11:21:26 AM 9. Hyoscyamine Sulfate 0.125 MG Oral Tablet; TAKE 1 TABLET 3-4 TIMES DAILY NEEDED; Therapy: 15Jan2014 to (Evaluate:89Vin9940); Last Rx:15Jan2014 Ordered Rx By: Balta Costello; Dispense: 30 Days ; #:120 Tablet; Refill: 2; For: Abdominal pain; LAURA = N; Print Rx 10. Hyoscyamine Sulfate 0.125 MG Sublingual Tablet Sublingual; Therapy: 17Apr2015 to Recorded Rx By: ECTOR GUERRERO; Dispense: 6 Days ; #:40 SUBL; Refill: 0; LAURA = N; Record; Last Updated By: Paulina Nicholas; 09/25/2015 11:15:46 AM 11. Lisinopril 10 MG Oral Tablet; Take 1 tablet daily; Therapy: 20Apr2014 to (Evaluate:86Kbn5824); Last Rx:20Apr2014 Ordered Rx By: Balta Costello; Dispense: 30 Days ; #:30 Tablet; Refill: 0; For: Hypertension; LAURA = N; Print Rx 12. Montelukast Sodium 10 MG Oral Tablet; Therapy: 25Jun2015 to Recorded Rx By: Elodia TROTTER; Dispense: 30 Days ; #:30 TABS; Refill: 0; LAUAR = N; Record; Last Updated By: Paulina Nicholas; 09/25/2015 11:15:46 AM 13. Omeprazole 40 MG Oral Capsule Delayed Release; TAKE 1 CAPSULE Daily Requested for: 20Apr2014; Last Rx:20Apr2014 Ordered Rx By: Balta Costello; Dispense: 0 Days ; #:30 Capsule Delayed Release; Refill: 0; For: GERD (gastroesophageal reflux disease); LAURA = N; Print Rx 14. Promethazine HCl - 25 MG Oral Tablet; TAKE 1 TABLET 3 TIMES DAILY NEEDED; Last Rx:20Apr2014 Ordered Rx By: Balta Costello; Dispense: 30 Days ; #:90 Tablet; Refill: 0; For: Abdominal pain; LAURA = N; Print Rx 15. Sucralfate 1 GM Oral Tablet; Therapy: [id number] to Recorded Rx By: DILIP CARLSON; Dispense: 10 Days ; #:40 TABS; Refill: 0; LAURA = N; Record; Last Updated By:Paulina Nicholas; 09/25/2015 11:15:46 AM 16. Tylenol TABS; Therapy: (Recorded:04Jan2014) to Recorded Dispense: 0 Days ; #: Sufficient TABS; Refill: 0; LAURA = N; Record; Last Updated By: Sophia Lee;01/04/2014 1:50:26 PM Allergies 1. Bactrim DS TABS Recorded By: Peggy Camacho; 01/04/2014 1:54:48 PM 2. Cephalexin Monohydrate TABS Recorded By: Balta Costello; 03/05/2014 11:02:44 AM 3. Doxycycline Monohydrate CAPS Recorded By: Balta Costello; 03/05/2014 11:02:44 AM 4. Levaquin TABS Recorded By: Peggy Camacho; 01/04/2014 1:54:48 PM 5. Lisinopril TABS Recorded By: Diana Caceres; 09/25/2015 11:58:15 AM 6. Percocet TABS Recorded By: Peggy Camacho; 01/04/2014 1:54:48 PM 7. Sulfa Drugs Recorded By: Peggy Camacho; 01/04/2014 1:54:48 PM 8. Contrast Dye Recorded By: Peggy Camacho; 01/04/2014 1:54:48 PM Vitals Recorded: 25Sep2015 11:43AM Recorded: 25Sep2015 11:35AM Temperature 99 F Heart Rate 101 Respiration 18 Systolic 122, RUE, Sitting 142, LUE, Sitting Diastolic 84, RUE, Sitting 90, LUE, Sitting O2 Saturation 98 Height 6 ft 2 in Weight 305 lb BMI Calculated 39.16 BSA Calculated 2.6 Physical Exam Constitutional General appearance: No acute distress, well appearing and well nourished. Ears, Nose, Mouth, and Throat External inspection of ears and nose: Normal. Otoscopic examination: Abnormal. The right tympanic membrane was red and was bulging. The left tympanic membrane was red and was bulging. erythema no exudate. Pulmonary Respiratory effort: No increased work of breathing or signs of respiratory distress. Auscultation of lungs: Clear to auscultation. Cardiovascular Palpation of heart: Normal PMI, no thrills. Auscultation of heart: Normal rate and rhythm, normal S1 and S2, without murmurs. Abdomen Abdomen: Non-tender, no masses. Lymphatic Palpation of lymph nodes in neck: No lymphadenopathy. Musculoskeletal Gait and station: Normal. Neurologic Cranial nerves: Cranial nerves 2-12 intact. Psychiatric Orientation to person, place and time: Normal. Mood and affect: Abnormal. Mood and Affect: agitated, anxious and frustrated. Assessment 1. Diabetes mellitus, type 2 (250.00) (E11.9) 2. Sleep apnea (780.57) (G47.30) 3. Generalized anxiety disorder (300.02) (F41.1) 4. Acute sinusitis (461.9) (J01.90) 5. Hypertension (401.9) (I10) 6. Asthma (493.90) (J45.909) 7. PTSD (post-traumatic stress disorder) (309.81) (F43.10) Plan Abdominal pain 1. Hyoscyamine Sulfate 0.125 MG Oral Tablet Rx By: Balta Costello; Dispense: 30 Days ; #:120 Tablet; Refill: 2; For: Abdominal pain; LAURA = N; Print Rx; Last Updated By: Paulina Nicholas; 09/25/2015 11:37:42 AM Acute sinusitis 2. Amoxicillin 875 MG Oral Tablet; TAKE 1 TABLET EVERY 12 HOURS DAILY Rx By: Diana Caceres; Dispense: 10 Days ; #:20 Tablet; Refill: 0; For: Acute sinusitis; LAURA = N; Verified Transmission to [facility]; Last Updated By: Marty Nunes; 09/25/2015 12:31:20 PM Anxiety 3. BuPROPion HCl - 100 MG Oral Tablet Rx By: Balta Costello; Dispense: 30 Days ; #:90 Tablet; Refill: 0; For: Anxiety; LAURA = N; Print Rx; Last Updated By: Paulina Nicholas; 09/25/2015 11:37:42 AM 4. Citalopram Hydrobromide 40 MG Oral Tablet Rx By: Balta Costello; Dispense: 30 Days ; #:30 Tablet; Refill: 0; For: Anxiety; LAURA = N; Print Rx; Msg to Pharmacy: 1/2 tab daily for 2-3 weeks.; Last Updated By: Paulina Nicholas; 09/25/2015 11:37:42 AM Asthma 5. Pulmonary Referral Outpatient eval and treat Status: Need Information - Financial Authorization Requested for: 25Sep2015 Ordered; For: Asthma; Ordered By: Diana Caceres Performed: Due: 09Oct2015; Last Updated By: Paulina Nicholas; 09/25/2015 1:48:57 PM Referral sent to Dr. Andrade, They will call patien to schedule an appt. Diabetes mellitus 6. Farxiga 5 MG Oral Tablet Rx By: Balta Costello; Dispense: 28 Days ; #:28 Tablet; Refill: 0; For: Diabetes mellitus; LAURA = N; Record; Last Updated By: Paulina Nicholas; 09/25/2015 11:37:43 AM Diabetes mellitus, type 2 7. Bagel Maker Referral Outpatient eval and treat Status: Need Information - Financial Authorization Requested for: 25Sep2015 Ordered; For: Diabetes mellitus, type 2; Ordered By: Diana Caceres Performed: Due: 09Oct2015; LastUpdated By: Paulina Nicholas; 09/25/2015 1:52:00 PM Referral sent to [facility], they will call patient to schedule an appt. [facility] Generalized anxiety disorder 8. Psychiatry Referral Outpatient eval and treat Status: Need Information - Financial Authorization Requested for: 25Sep2015 Ordered; For: Generalized anxiety disorder; Ordered By: Diana Caceres Performed: Due: 09Oct2015 Hypertension 9. Lisinopril 10 MG Oral Tablet Rx By: Balta Costello; Dispense: 30 Days ; #:30 Tablet; Refill: 0; For: Hypertension; LAURA = N; Print Rx; Last Updated By: Paulina Nicholas; 09/25/2015 11:37:43 AM 10. Basic Metabolic Prof ( BMP ); Status:Hold For - Manual Activation; Requested for:25Sep2015; Perform:[facility]; Due:[id number];Ordered; For:Hypertension; Ordered By:Diana Caceres; 11. CBC W Differential; Status:Hold For - Manual Activation; Requested for:25Sep2015; Perform:[facility]; Due:[id number];Ordered; For:Hypertension; Ordered By:Diana Caceres; 12. Hepatitis C Virus ( HCV ) Ab; Status:Hold For - Manual Activation; Requested for:25Sep2015; Perform:[facility]; Due:[id number];Ordered; For:Hypertension; Ordered By:Diana Caceres; 13. Lipid Profile; Status:Hold For - Manual Activation; Requested for:25Sep2015; Perform:[facility]; Due:[id number];Ordered; For:Hypertension; Ordered By:Diana Caceres; 14. TSH W Reflex Free T4; Status:Hold For - Manual Activation; Requested for:25Sep2015; Perform:[facility]; Due:[id number];Ordered; For:Hypertension; Ordered By:Diana Caceres; Sinusitis 15. Amoxicillin-Pot Clavulanate 875-125 MG Oral Tablet Rx By: Balta Costello; Dispense: 14 Days ; #:28 Tablet; Refill: 0; For: Sinusitis; LAURA = N; Print Rx;Last Updated By: Paulina Nicholas; 09/25/2015 11:15:45 AM Sleep apnea 16. Otolaryngology Referral Outpatient sleep study needed, eval and treat please Status: Need Information - Financial Authorization Requested for: 25Sep2015 Ordered; For: Sleep apnea; Ordered By: Diana Caceres Performed: Due: 09Oct2015; Last Updated By: Paulina Nicholas; 09/25/2015 1:51:01 PM Referral sent to [facility], They will call patien to schedule appt. [facility] 17. ALPRAZolam 1 MG Oral Tablet Rx By: BENJIE GONZALES; Dispense: 30 Days ; #:90 TABS; Refill: 0; LAURA = N; Record; Last Updated By: Paulina Nicholas; 09/25/2015 11:37:43 AM 18. AmLODIPine Besylate 10 MG Oral Tablet Rx By: BENJIE GONZALES; Dispense: 30 Days ; #:30 TABS; Refill: 0; LAURA = N; Record; Last Updated By: Paulina Nicholas; 09/25/2015 11:37:43 AM 19. AmLODIPine Besylate 5 MG Oral Tablet Rx By: BENJIE GONZALES; Dispense: 30 Days ; #:30 TABS; Refill: 0; LAURA = N; Record; Last Updated By: Paulina Nicholas; 09/25/2015 11:37:43 AM 20. Qwqzisogab-LXCX-Kfaczcsp 50-325-40 MG Oral Tablet Rx By: ESTFEANY CASTILLO; Dispense: 3 Days ; #:20 TABS; Refill: 0; LAURA = N; Record; Last Updated By: Paulina Nicholas; 09/25/2015 11:37:43 AM 21. Hnsrhthbvc-Njuqtrz-Ywvpojgd 50-325-40 MG Oral Capsule Rx By: BENJIE GONZALES; Dispense: 3 Days ; #:10 CAPS; Refill: 0; LAURA = N; Record; Last Updated By: Paulina Nicholas; 09/25/2015 11:37:43 AM 22. Claritin 10 MG Oral Capsule Dispense: 0 Days ; #: Sufficient CAPS; Refill: 0; LAURA = N; Record; Last Updated By: Paulina Nicholas; 09/25/2015 11:37:42 AM 23. Ferrous Sulfate 325 (65 Fe) MG Oral Tablet Rx By: ESTHELA COREAS; Dispense: 30 Days ; #:60 TABS; Refill: 0; LAURA = N; Record; Last Updated By: Paulina Nicholas; 09/25/2015 11:37:43 AM 24. LORazepam 1 MG Oral Tablet Rx By: BENJIE GONZALES; Dispense: 30 Days ; #:60 TABS; Refill: 0; LAURA = N; Record; Last Updated By: Paulina Nicholas; 09/25/2015 11:37:43 AM 25. MetroNIDAZOLE 500 MG Oral Tablet Rx By: SALIMA TOM; Dispense: 7 Days ; #:14 TABS; Refill: 0; LAURA = N; Record; Last Updated By: Paulina Nicholas; 09/25/2015 11:37:43 AM 26. Propranolol HCl - 40 MG Oral Tablet Rx By: QAMAR SANCHEZ; Dispense: 30 Days ; #:60 TABS; Refill: 0; LAURA = N; Record; Last Updated By: Paulina Nicholas; 09/25/2015 11:37:43 AM 27. Spironolactone 25 MG Oral Tablet Rx By: YULISA SHELLEY; Dispense: 14 Days ; #:7 TABS; Refill: 0; LAURA = N; Record; Last Updated By: Paulina Nicholas; 09/25/2015 11:37:43 AM Discussion/Summary ASI Low grade fever today. Congestion for over a week. PE supports Dx. Abx discussed and ordered. Take with food. f/u if no improvement. elevated BP. Pt is not comfortable on Atenolol. I support this. Discussed need to decrease slowly to avoid rebound. I think his HR is elevated today d/t wanting more Xanax. He does have asthma. I suggest he starthis HCTZ as previously ordered. Pt agrees. Take a journal and f/u nurse BP visit in one week. Labs ordered. Asthma Pt has tried multiple medications in the past. He thinks it is his sleep apnea. Sleep study ordered. I would like him evaluated from pulmonology. PE is neg today. Lungs are clear. He does not want totry any other options of medications today. Anxiety, PTSD Pt is very focused on anxiety and wanting more Xanax. I discussed my concern of recent refills and I am not comfortable prescribing more at this point. Safety discussed. I discussed SSRI medication. He is not willing to do this at this time. Pt is aggravated with this. Contacts to psychiatrist given and pt threw it away. At this point discussion became difficult and poor historian. He could not remember when medications where refilled. Pt did not want to talk about overall health. I gave a couple of minutes for pt to regroup. When i returned we had further discussion. Slightly more cooperative. Pt remains focused on getting xanax refilled. I am not willing to do this for this pt. I think with his extensive Hx and wanting more medication before date of refill that this is a safety issue. Rob happy to care for pt HM and BP but I want a psychiatrist involved for anxiety. f/u in a week to monitor BP Signatures Electronically signed by : Diana Caceres NP; Sep 25 2015 2:29PM BED PLACEMENT COORDINATOR (Author) documented in this encounter Plan of Treatment Not on file documented as of this encounter Visit Diagnoses Not on filedocumented in this encounter Care Teams Marine Chronometer Assembler Relationship Specialty Start Date End Date Md [...]
--- OUTSIDE RECORDS SUMMARY | 2024-09-10 03:49 | XMS_ITS | Encounter Summary ---
Author Organization [facility] Address [address] [place] [address]. [place], [place] [id number] [place] [id number] Care Team Providers Care Class 1 Owner Operator Name Role Phone , Generic Conversion Primary Care Provider Unavailable , Generic Conversion Primary Care Provider Unavailable Encounter Details Date Type Department Care Team (Late st Contact Info) Description 10/11/[address] [facility] [address] [place], [place] [id number] Amanda Blevins, ELEMENTARY SCHOOL COUNSELOR [address] [facility] [address] [place], [place] [phone] Social History Tobacco Use Types Packs/Day Years [...] Name Priority Date/Time Associated Diagnosis Comments CULTURE STREP A Routine 10/11/2016 7:30 PM CONSTRUCTION FRAMER RAPID STREP A STAT 10/11/2016 7:30 PM CONSTRUCTION FRAMER documented in this encounter Results * CULTURE STREP A (10/11/2016 7:30 PM CONSTRUCTION FRAMER) SPEC DESCRIPTION THROAT 10/11/2016 8:40 PM CONSTRUCTION FRAMER [facility] SPECIAL REQUESTS NO SPECIAL REQUEST 10/11/2016 8:40 PM CONSTRUCTION FRAMER [facility] CULTURE RESULT NO STREPTOCOCCUS PYOGENES (GROUP A) ISOLATED 10/14/2016 9:31 AM CONSTRUCTION FRAMER [facility] THROAT SWAB / Unknown 10/11/2016 7:30 PM CONSTRUCTION FRAMER 10/11/2016 8:40 PM CONSTRUCTION FRAMER us Generic Conversion Md RUSSELL MICROBIOLOGY - GENERAL ORDERABLES Final Result Performing Organization Address [facility] Co de Phone Number [facility] [address] [place] [address], [place] [phone] * RAPID STREP A (10/11/2016 7:30 PM CONSTRUCTION FRAMER) SPECIMEN TYPE THROAT 10/11/2016 8:28 PM CONSTRUCTION FRAMER [facility] RAPID STREP TEST NEGATIVE NEGATIVE 10/11/2016 8:39 PM CONSTRUCTION FRAMER [facility] Comment: TESTING PERFORMED AT [address] ??[id number] MALKA ROWLAND M.D., [employer]ING [employer]ER THROAT SWAB / Unknown 10/11/2016 7:30 PM CONSTRUCTION FRAMER 10/11/2016 8:32 PM CONSTRUCTION FRAMER us Generic Conversion Md RUSSELL MICROBIOLOGY - GENERAL ORDERABLES Final Result Performing Organization Address [facility] Co de Phone Number [facility] [address] [place] [address], [place] [phone] documented in this encounter Visit Diagnoses Diagnosis Acute pharyngitis documented in this encounter Care Teams Class 1 Owner Operator Relationship Specialty Start Date End Date Alina Russell MD PCP - General 02/20/17 Alina Russell MD PCP - General 10/11/16 7 documented as of this encounter
--- OUTSIDE RECORDS SUMMARY | 2024-09-10 03:49 | XMS_ITS | Encounter Summary ---
Author Organization [facility] Address [facility]. [place] [id number] [place] [address] Care Team Providers Care Proposal Rep Name Role Phone Md Generic Conversion Primary [...] Conversion MD Primary Care Provider Unavailable Balta Costello MD Primary Care Provider Unavaila ble Encounter Details Date Type Department Care Team (Latest Contact Info) Description 04/06/2014 Abstract [facility] Balta Costello MD [address] [facility] [address] [place] [address] Social History Tobacco Use Types Packs/Day Years Used Date Smoking Tobacco: Never Assessed Sex and Gender Information Value Date Recorded Sex Assigned at Not on file Legal Sex Male 10:39 PM CDT Gender Identity Not on file Sexual Orientation Not on file documented as of this encounter Progress Notes * Generic Ivis Russell MD - 04/06/2014 4:45 PM CDT Note Note: discussed with staff. staff contacted patient and LMOM that he has new appointment at 04-20-2014 at 3PM. Dayday RUSSELL Signatures Electronically signed by : Balta Costello M.D.; Apr 06 2014 4:46PM COMMERCIAL AIRPLANE PILOT (Author) documented in this encounter Plan of Treatment Not on file documented as of this encounter Visit Diagnoses Not on filedocumented in this encounter Care Teams Proposal Rep Relationship Specialty Start Date End Date Md Generic Conversion, PCP - General 02/20/17 Md Generic Conversion, PCP - General 10/11/16 7 Md, Generic Conversion, PCP - General 07/19/16 Md [...]
--- OUTSIDE RECORDS SUMMARY | 2024-09-10 03:49 | XMS_ITS | Encounter Summary ---
Author Organization [facility] Address [facility] [place] [address] Care Team Providers Care Repeater Operator Name Role Phone Md Generic Conversion [...] Department Care Team (Latest Contact Info) Description 04/17/2014 Abstract [facility] Social History Tobacco Use Types Packs/Day Years Used Date Smoking Tobacco: Never Assessed Sex and Gender Information Value Date Recorded Sex Assigned at Not on file Legal Sex Male 10:39 PM CDT Gender Identity Not on file Sexual Orientation Not on file documented as of this encounter Progress Notes * Generic Conversion MD Fermin - 04/17/2014 8:52 AM CDT Message Message: Patient called into clinic 04/16/14 C/O feeling disoriented and never feeling like this before , patient states he feels like his skin is crawling . Discussed at length with patient BS readings. Patient BS stable at this time @ 172. Patient states he is no longer taking medication for his diabetes as he is allergic to Metformin . Acknowledged that patient has multiple issues with Anxi ety and has Hx of calling into the clinic every day. Patient has scheduled appt. with PCP on 04/20/14. Reiterated appt. date and time with patient. Patient was recently seen in ED for R/O Diverticulitis. Patient currently has no symptoms of acute episode at this time. Patient denied diarrhea, nausea or vomiting or abdominal pain at this time. Advised patient to take medications as directed and tocall back for worsening symptoms of intractable pain, nausea or vomiting or fever greater than 101F. Patient advised to check BS as directed by MD although patient checks his BS multiple times a day.Patient is to contact clinic for BS > 60 and BS < 250. Patient instructed to maintain a diabetic diet and eat small frequent meals.Patient advised not to drive while feeling poorly as I could cl early hear patient was in the car during our conversation. Patient stated his friend was driving .Patient states he has taken 4 mg of Ativan @ 1430, patient advised not to exceed normal dosing per MD recommendations. Patient verbalized understanding of information. MD was notified. No further action required. Signatures Electronically signed by : Angi Turner, ; Apr 17 2014 9:02AM DENTAL FINANCIAL COORDINATOR (Author) documented in this encounter Plan of Treatment Not on file documented as of this encounter Visit Diagnoses Not on filedocumented in this encounter Care Teams Repeater Operator Relationship Specialty Start Date End Date Md [...] Md Generic Conversion, PCP - General 02/14/1509/09 Md Generic Conversion, PCP - General 12/11/14 5 Md Generic Conversion, PCP - General 09/10/14 Md, Generic Conversion, MD PCP - General 07/30/1409/09 , Generic Conversion, PCP - General 06/09/1407/29 Balta Costello MD PCP - General 02/02/14 06/08/14 documented as of this encounter
--- OUTSIDE RECORDS SUMMARY | 2024-09-10 03:49 | XMS_ITS | Encounter Summary ---
Author Organization [facility] Address [address] [place] [address]. [place], [place] [id number] [place] [address] Care Team Providers Care Fiberglass Machine Operator Name Role Phone Unavailable Primary Care Provider Unavailabl e Reason for Visit * Reason Comments Cough Urinary Symptoms Encounter Details Date Type Department Care Team (Latest Contact Info) Description 02/01/2018 5:18 PM CDT - 02/01/2018 6:33 PM CDT Hospital Encounter [facility] [address] Regina Carson NP Cough; Urinary Symptoms Discharge Disposition: Home or Self Care [...] Sign Reading Time Taken Comments Blood Pressure 153/90 02/01/2018 5:24 PM CDT Pulse 84 02/01/2018 5:24 PM CDT Temperature 36.2 ??C (97.2 ??F) 02/01/2018 5:24 PM CD T Respiratory Rate 20 02/01/2018 5:24 PM CDT Oxygen Saturation 98% 02/01/2018 5:24 PM CDT Inhaled Oxygen Concentration - - Weight 127.5 kg (281 lb) 02/01/2018 5:24 PM CDT Height 188 cm (6' 2 ) 02/01/2018 5:24 PM CDT Body Mass Index 36.08 02/01/2018 5:24 PM CDT documented in this encounter Discharge Instructions * Discharge Instructions* Regina Carson NP - 02/01/2018 6:12 PM CDT Images from the original note were not included. Patient Education Sinusitis Discharge Instructions, Adult About this topic The sinuses are air-filled spaces inside the head. They are found behind your forehead, nose, cheeks, and eyes. The spaces are lined with small hairs that clean the sinuses. Sinusitis means that your sinuses are swollen, inflamed, or infected. This happens when the small hairs that clean the sinuses do not work, or when the opening to the sinuses is blocked. Mucus is trapped inside the sinuses and causes pain. The block may be caused by: ?? Colds ? This is the most common reason. ?? Allergies ?? Curving or bending of the wall that separates your nose. This is a deviated septum. ?? Extra bony growths inside the nose. These are called nasal bone spurs. ?? Chemical irritation from cigarette smoke or other irritating odors Signs can last for up to 4 weeks or may be long-lasting. They may also appear again in a few monthsafter you feel better. Doctors may treat sinusitis by giving drugs. Surgery may be needed if sinusitis happens again and again. What care is needed at home? ?? Ask your doctor what you need to do when you go home. Make sure you ask questions if you do not understand what you need to do. ?? Your doctor may order a saline nose rinse to help clear your sinuses. ?? Drink 6 to 8 glasses of water each day to help thin mucus. ?? Use two or three pillows under your head and shoulders when you sleep. This will help your sinuses drain. ?? Drape a towel over your head as you breathe in the steam from a bowl of warm water. This will help moisturize your sinuses. This may also drain clogged sinuses. ?? Use a warm compress to your face to ease facial pain. What follow-up care is needed? ?? Your doctor may ask you to make visits to the office to check on your progress. Be sure to keep your visits. ?? Your doctor will tell you if other tests are needed. ?? Your doctor may send you for allergy tests or to an allergy expert. What lifestyle changes are needed? ?? Avoid drinks that contain caffeine or alcohol. ?? Try to stop smoking. Avoid being around others who smoke. Smoke can damage the small hairs inside your sinuses. What drugs may be needed? The doctor may order drugs to: ?? Help with pain and swelling ?? Fight an infection ?? Control coughing ?? Dry up the sinuses ?? Help a runny or stuffy nose Will physical activity be limited? You do not have to limit your activity. You may want to rest more if you have a fever or headache. What problems could happen? ?? Infections that happen again and again ?? Asthma attack ?? Coughing ?? Loss of voice What can be done to prevent this health problem? ?? Keep your nose as moist as possible. Use saline sprays, washes, and a humidifier often. ?? Avoid being around cigarette and cigar smoke or strong odors from chemicals. ?? Avoid long periods of swimming in pools treated with chlorine. This can bother the lining of thenose and sinuses. ?? Avoid water diving. This forces water into the sinuses from the nasal passages. ?? Manage your allergies with your doctor's help. ?? Use an air conditioner if allergies are a problem. ?? Before air travel, use a drug to dry up mucus. As the plane takes off or lands, the pressure cancause sinus pain. When do I need to call the doctor? ?? Signs of infection. These include a fever of 100.4??F (38??C) or higher, chills. ?? Sudden breathing problems ?? You are not feeling better in 2 or 3 days or you are feeling worse Teach Back: Helping You Understand The Teach [...] condition. ?? I can tell you what may help ease my breathing. ?? I can tell you what I will do if I have a fever, chills, or trouble breathing. Where can I learn more? [employer] http://care.djiboutian-rhinologic.org/adult_sinusitis National [place] of Allergy and Infectious Diseases http://www.niaid.nih.gov/topics/sinusitis/Pages/index.aspx Last Reviewed Date 2015-04-04 Consumer Information Use and Disclaimer This information [...] right for you. Copyright Copyright ?? 2018 [employer]. and its affiliates and/or licensors. All rights reserved. Patient Education Dysuria Discharge Instructions, Adult About this topic Dysuria is when you have pain, tingling, or burning when you pass urine. Some people feel it just afterwards. This is common in women. Often the cause is an infection. Other reasons may also cause this problem. What care is needed at home? ?? Ask your doctor what you need to do when you go home. Make sure you ask questions if you do not understand what the doctor says. This way you will know what you need to do. ?? Drink at least 8 to 10 glasses of water or water-based drinks per day. Do not include drinks with caffeine like coffee or tea. ?? Practice proper hygiene. ?? Wipe from front to back after going to the toilet. ?? Wash often with soap and water. ?? Do not use douches. ?? Change your wet bathing suit or damp workout clothes as soon as possible. ?? Do not hold back your urine. Go to the bathroom every 2 to 3 hours. ?? Practice safe sex. Use condoms. ?? Avoid using scented tampons, soap, or toilet paper. ?? Wear cotton underwear. Change your underwear regularly. Avoid tight-fitting clothing. What follow-up care is needed? Your doctor may ask you to make visits to the office to check on your progress. Be sure to keep these visits. The doctor may suggest doing some tests to check if the infection was treated. What drugs may be needed? The doctor may order drugs to: ?? Help with pain ?? Fight an infection Will physical activity be limited? Your signs may make you limit your activity. Talk to your doctor about the right amount of activityfor you. What changes to diet are needed? ?? Do not drink beer, wine, and mixed drinks (alcohol) or caffeine. These can bother the bladder. ?? Talk to your doctor about drinking cranberry juice. What problems could happen? ?? Kidney damage, if the infections spreads to the kidneys ?? Infection may spread into the bloodstream (sepsis) When do I need to call the doctor? ?? Signs of infection. These include a fever of 100.4??F (38??C) or higher, chills, or pain with passing urine. ?? Blood in the urine ?? Very bad pain in the back, sides, or belly ?? Discharge from your penis or vagina ?? Have to pass urine more often ?? Upset stomach and throwing up ?? Poor appetite ?? You are and you feel pain when passing urine ?? Signs are worse or do not improve within 24 hours of starting treatment ?? Signs return after finishing treatment ?? You are not feeling better in 2 to 3 days or you are feeling worse Teach Back: Helping You Understand The Teach [...] condition. ?? I can tell you what are good fluids for me to drink and how often I should try to go to the bathroom. ?? I can tell you what I will do if I have a fever; chills; pain with passing urine; blood in my urine; or back, side, or belly pain. Where can I learn more? [employer]ician http://www.aafp.org/afp/2001/0415/p1597.html Last Reviewed Date 2017-04-01 Consumer Information Use and Disclaimer This information [...] right for you. Copyright Copyright ?? 2018 [employer]. and its affiliates and/or licensors. All rights reserved. documented in this encounter Medications at Time of Discharge albuterol sulfate HFA 108 (90 BASE) MCG/ACT inhaler Inhale 2 puffs into the lungs every 6 (six) hours as needed for Wheezing. 12/12/2018 alprazolam 2 MG tablet Take 2 mg by mouth 4 (four) times daily as needed. 11/30/2019 amoxicillin 875 MG tablet Take 1 tablet (875 mg total) by mouth 2 (two) times daily for 10 days. 20 tablet 02/01/2018 02/11/2018 atenolol 100 MG tablet Take 100 mg by mouth daily. 12/12/2018 escitalopram 20 MG tablet Take 40 mg by mouth daily. 09/19/2018 fluticasone propionate (FLONASE) 50 MCG/ACT nasal spray 1 spray by Each Nare route 2 (two) times a day. 16 g 02/01/2018 04/30/2018 fluticasone propionate 50 MCG/ACT nasal spray 1 spray by Nasal route daily. 12/12/2018 documented as of this encounter ED Notes * Regina Carson NP - 02/01/2018 6:03 PM CDT Chief Complaint Chief Complaint Patient presents with ??? Cough ??? Urinary Symptoms History of Present Illness HPI Comments: 47 yo M presents with c/o sinus congestion/pressure, PND for 2 weeks. C/o cough for 3days. Using Flonase. Reports that he gets seasonal allergies. Oral antihistamines make him too tired. Denies SOB. States that ribs are sore . Denies fever/chills. Also c/o urinary frequency, burningwith urination for 2 days. Denies penile discharge. Not sexually active. No concern for STDs. All systems reviewed and negative except as noted above. Patient is a 47-year-old male presenting with cough. 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 [...] Doc Abstract escitalopram 20 MG tablet Take 40 mg [...] ??? Stroke Father SOCIAL HISTORY: Social History Substance Use Topics ??? Smoking status: Never Smoker ??? Smokeless tobacco: Never Used ??? Alcohol use No Review of Systems Review of Systems Constitutional: Negative. HENT: Positive for congestion, postnasal drip, rhinorrhea, sinus pain and sinus pressure. Negative for ear pain and sore throat. Respiratory: Positive for cough. Negative for chest tightness and shortness of breath. Cardiovascular: Negative. Gastrointestinal: Negative. Musculoskeletal: Negative. All other systems reviewed and are negative. Physical Exam Filed Vitals: 02/01/18 1724 BP: 153/90 Pulse: 84 Resp: 20 Temp: 97.2 ??F (36.2 ??C) TempSrc: Temporal SpO2: 98% Weight: 127.5 kg (281 lb) Height: 6' 2 (1.88 m) Physical Exam Constitutional: He is oriented to person, place, and time. Vital signs are normal. He appears well-developed and well-nourished. He is active. Non-toxic appearance. He does not have a sickly appearance. He does not appear ill. No distress. HENT: Head: Normocephalic. Right Ear: Tympanic membrane, external ear and ear canal normal. Left Ear: Tympanic membrane, external ear and ear canal normal. Nose: Mucosal edema and rhinorrhea present. Right sinus exhibits maxillary sinus tenderness and frontal sinus tenderness. Left sinus exhibits maxillary sinus tenderness and frontal sinus tenderness. Mouth/Throat: Uvula is midline, oropharynx is clear and moist and mucous membranes are normal. Eyes: Conjunctivae and EOM are normal. Pupils are equal, round, and reactive to light. Neck: Normal range of motion. Neck supple. Cardiovascular: Normal rate, regular rhythm and normal heart sounds. Pulmonary/Chest: Effort normal and breath sounds normal. Lymphadenopathy: He has no cervical adenopathy. Neurological: He is alert and oriented to person, place, and time. Skin: Skin is warm and dry. Psychiatric: He has a normal mood and affect. His behavior is normal. Judgment and thought content normal. Nursing note and vitals reviewed. Diagnostic Studies / Procedures ELECTROCARDIOGRAMS: No results found for this visit on 02/01/18. LABORATORY STUDIES: Results for orders placed or performed during the hospital encounter of 02/01/18 URINALYSIS AUTO DIP Result Value Ref Range Specimen Type URINE CLEAN CATCH COLOR DARK YELLOW TRANSPARENCY CLEAR Specific Marshall (U) >1.030 (H) 1.001 - 1.030 U PH 6.0 5.0 - 9.0 LEUKOCYTE ESTERASE NEGATIVE NEGATIVE NITRITES NEGATIVE NEGATIVE PROTEIN, URINE 30 (H) <30 MG/DL URINE GLUCOSE NEGATIVE NEGATIVE MG/DL U KETONES NEGATIVE NEGATIVE MG/DL UROBILINOGEN 0.2 (A) NEGATIVE MG/DL Urine Bilirubin SMALL (A) NEGATIVE MG/DL BLOOD NEGATIVE NEGATIVE CULTURE & SENSITIVITY INDICATED? CULTURE IS NOT INDICATED POCT glucose Result Value Ref Range WHOLE BLOOD GLUCOSE 124 (A) 70 - 100 mg/dL POCT glucose Result Value Ref Range GLUCOSE POC 124 (H) 70 - 99 mg/dL IMAGING STUDIES XR CHEST PA+LAT Final Result by User, [id number] (02/01 1737) Examination: Chest x-ray 2 view Exam Date/Time: 02/01/2018 5:35 PM Reason For Exam: RIB PAIN Right-sided chest pain for 2 days. Cough. Comparison: Portable chest x-ray 01/17/2018. Technique: PA and lateral views of the chest were obtained. Findings: Heart size is within normal limits. Pulmonary vasculature is within normal limits. There is no large pleural effusion or pneumothorax. There is no focal infiltrate or consolidative change. ======== IMPRESSION: ======== 1. No acute cardiopulmonary findings. Course / Medical Decision Making Clinical Impression None Disposition: Data Unavailable Regina Carson NP 02/01/181809 * Norah Manzo RN - 02/01/2018 5:33 PM CDT PT STATES HE HAS SINUS DRAINAGE, PRODUCTIVE COUGH, PRESSURE IN HIS HEAD, EYES BURN ONSET Wednesday. WAS SEEN AT ANOTHER URGENT CAR AND GIVE KETOROLAC DROPS WHICH HELPED HIS EYES BUT HE HAD THROAT SWELLING THE NEXT DAY. ALSO HAS LEFT RIB PAIN. documented in this encounter Plan of Treatment Not on file documented as of this encounter Procedures Procedure Name Priority Date/Time Associated Diagnosis Comments XR CHEST PA+LAT STAT 02/01/2018 5:35 PM CDT POCT GLUCOSE - WEIR DOCKED DEVICE STAT 02/01/2018 5:31 PM CDT POCT GLUCOSE - WEIR DOCKED DEVICE Routine 02/01/2018 5:30 PM CDT URINALYSIS AUTO DIP STAT 02/01/2018 5 :27 PM CDT documented in this encounter Results * XR CHEST PA+LAT (02/01/2018 5:35 PM CDT) Anatomical Region Laterality Modality Chest Radiographic Katarzyna ging 02/01/2018 5:36 PM CDT Impressions 02/01/2018 5:37 PM CDT ======== IMPRESSION: ======== 1. ??No acute cardiopulmonary findings. Narrative 02/01/2018 5:37 PM CDT Examination: Chest x-ray 2 view Exam Date/Time: 02/01/2018 5:35 PM Reason For Exam: ??RIB PAIN ? Right-sided chest pain for 2 days. Cough. Comparison: Portable chest x-ray 01/17/2018. Technique: PA and lateral views of the chest were obtained. Findings: Heart size is within normal limits. Pulmonary vasculature is within normal limits. There is no large pleural effusion or pneumothorax. There is no focal infiltrate or consolidative change. Procedure Note Hema Bentley MD - 02/01/2018 Examination: Chest x-ray 2 view Exam Date/Time: 02/01/2018 5:35 PM Reason For Exam: RIB PAIN Right-sided chest pain for 2 days. Cough. Comparison: Portable chest x-ray 01/17/2018. Technique: PA and lateral views of the chest were obtained. Findings: Heart size is within normal limits. Pulmonary vasculature is within normal limits. There is no large pleural effusion orpneumothorax. There is no focal infiltrate or consolidative change. ======== IMPRESSION: ======== 1. No acute cardiopulmonary findings. us Regina Carson DENTAL EQUIPMENT INSTALLER AND SERVICER GENERAL IMAGING Final Resu lt * (ABNORMAL) POCT glucose (02/01/2018 5:31 PM CDT) GLUCOSE WHOLE BLOOD 124(A) 70 - 100 mg/dL [facility] us Regina Nortonon DENTAL EQUIPMENT INSTALLER AND SERVICER POCT ORDERABLES - DEVICE F inal Result Performing Organization Address [facility] Co de Phone Number [facility] [address] [place] [address], [place] [phone] * (ABNORMAL) POCT glucose (02/01/2018 5:30 PM CDT) GLUCOSE POC 124(H) 70 - 99 mg/dL 02/01/2018 5:31 PM CDT [facility] ORDERS INTERFACE 02/01/2018 5:30 PM CDT Regina Carson DENTAL EQUIPMENT INSTALLER AND SERVICER POCT ORDERABLES - DEVICE F inal Result Performing Organization Address [facility] Co de Phone Number [facility] ORDERS INTERFACE US * (ABNORMAL) URINALYSIS AUTO DIP (02/01/2018 5:27 PM CDT) SPECIMEN TYPE URINE CLEAN CATCH 02/01/2018 5:27 PM CDT [facility] COLOR (U) DARK YELLOW 02/01/2018 5:56 PM CDT [facility] TRANSPARENCY CLEAR 02/01/2018 5:56 PM CDT [facility] SPECIFIC GRAVITY (U) >1.030(H) 1.001 - 1.030 02/01/2018 5:56 PM CDT [facility] U PH 6.0 5.0 - 9.0 02/01/2018 5:56 PM CDT [facility] LEUKOCYTES (U) NEGATIVE NEGATIVE 02/01/2018 5:56 PM CDT [facility] NITRITES NEGATIVE NEGATIVE 02/01/2018 5:56 PM CDT [facility] PROTEIN (U) 30(H) <30 MG/DL 02/01/2018 5:56 PM CDT [facility] URINE GLUCOSE NEGATIVE NEGATIVE MG/DL 02/01/2018 5:56 PM CDT [facility] KETONES MG/DL (U) NEGATIVE NEGATIVE MG/DL 02/01/2018 5:56 PM CDT [facility] UROBILINOGEN 0.2(A) NEGATIVE MG/DL 02/01/2018 5:56 PM CDT [facility] BILIRUBIN (U) SMALL(A) NEGATIVE MG/DL 02/01/2018 5:56 PM CDT [facility] BLOOD (U) NEGATIVE NEGATIVE 02/01/2018 5:56 PM CDT [facility] CULTURE & SENSITIVITY INDICATED? CULTURE IS NOT INDICATED 02/01/2018 5:56 PM CDT [facility] URINE SPECIMEN OBTAINED BY CLEAN CATCH PROCEDURE / Unknown 02/01/2018 5:27 PM CDT us Regina Carson DENTAL EQUIPMENT INSTALLER AND SERVICER URINE ORDERABLES Final Res [id number] [place] [address], documented in this encounter Visit Diagnoses Diagnosis Acute sinus infection- Primary Acute sinusitis, unspecified Dysuria documented in this encounter
--- OUTSIDE RECORDS SUMMARY | 2024-09-10 03:49 | XMS_ITS | Encounter Summary ---
Author Organization [facility] Address [address] [place] [address]. [place] [address] Care Team Providers Care Linux Server Administrator Name Role Phone Md Generic Conversion Primary [...] Team (Latest Contact Info) Description 06/09/2014 Abstract [facility] Medical Group Md Generic MD Ivis Social [...] Name Priority Date/Time Associated Diagnosis Comments CT HEAD WO CON Routine 06/09/2014 8:25 AM CDT documented in this encounter Results * CT HEAD WO CON (06/09/2014 8:25 AM CDT) Anatomical Region Laterality Modality Head Computed Tomogra phy 06/09/2014 8:25 AM CDT 06/09/2014 8:25 AM CDT Narrative 06/11/2014 8:50 AM CDT CARLOS KELLY ORDERING MD: PHIL PICHARDO MD ?? ACCT: [id number] ?? ADMIT/SERVICE DATE: 06/09/14 DISCHARGE DATE: 06/09/14 ?? : 1970 PT TYPE: DEP ER ?? SEX: M ORD SITE: [facility] ? STUDY DATE REPORT # PROCEDURE CODE PROCEDURE ?? 06/09/14 [id number] H/BWOC CT HEAD BRAIN WO ? EXTORDERID ? [id number] ? ACCESSION NUMBER ?? [id number] ?CHART DOCUMENT ? IMPRESSION: ? NO EVIDENCE OF ACUTE INTRACRANIAL HEMORRHAGE, MASS EFFECT, OR MIDLINE ?? SHIFT. ? CT IS INSENSITIVE FOR THE DETECTION OF ACUTE ISCHEMIA. ? HISTORY: ??HEADACHE AND VERTIGO AND CONFUSION. ? CT OF THE BRAIN WITHOUT CONTRAST ? COMPARISON: ??04/12/12. ? TECHNIQUE: ??AXIAL IMAGES THROUGH THE BRAIN WITHOUT INTRAVENOUS CONTRAST. ? FINDINGS: ??NO EVIDENCE OF SCALP HEMATOMA OR SIGNIFICANT SOFT TISSUE ?? SWELLING. ??LIMITED EVALUATION OF THE PARANASAL SINUSES AND MASTOIDS ?? DEMONSTRATES NO ACUTE ABNORMALITY. ??NO EVIDENCE OF A CALVARIAL FRACTURE. ? INTRACRANIALLY, NO EVIDENCE OF HEMORRHAGE, MASS EFFECT, OR MIDLINE SHIFT. ? CSF SPACES ARE WITHIN NORMAL LIMITS. ? THE POSTERIOR CRANIAL FOSSA IS UNREMARKABLE. ? ELECTRONICALLY SIGNED BY: ?? FRANKLIN VELAZCO M.D. 06/10/2014 09:36 A ?? FRANKLIN VELAZCO M.D. ? D: ??06/09/2014 08:25 A ??#[id number] ?? T: ??06/09/2014 12:42 P/MA ? CC: ?PRIMARY CARE PHYS NO ?MART HARPER ? Procedure Note Alina Russell MD - 07/08/2018 CARLOS KELLY MD: PHIL PICHARDO MD ACCT: [id number] ADMIT/SERVICE DATE: 06/09/14 DISCHARGE DATE: 06/09/14 : 1970 PT TYPE: DEP ER SEX: M ORD SITE: [facility] STUDY DATE REPORT # PROCEDURE CODE PROCEDURE 06/09/14 [id number] /[facility] CT HEAD BRAIN WO EXTORDERID [id number] ACCESSION NUMBER [id number] CHART DOCUMENT IMPRESSION: NO EVIDENCE OF ACUTE INTRACRANIAL HEMORRHAGE, MASS EFFECT, OR MIDLINE SHIFT. CT IS INSENSITIVE FOR THE DETECTION OF ACUTE ISCHEMIA. HISTORY: HEADACHE AND VERTIGO AND CONFUSION. CT OF THE BRAIN WITHOUT CONTRAST COMPARISON: 04/12/12. TECHNIQUE: AXIAL IMAGES THROUGH THE BRAIN WITHOUT INTRAVENOUS CONTRAST. FINDINGS: NO EVIDENCE OF SCALP HEMATOMA OR SIGNIFICANT SOFT TISSUE SWELLING. LIMITED EVALUATION OF THE PARANASAL SINUSES AND MASTOIDS DEMONSTRATES NO ACUTE ABNORMALITY. NO EVIDENCE OF A CALVARIAL FRACTURE. INTRACRANIALLY, NO EVIDENCE OF HEMORRHAGE, MASS EFFECT, OR MIDLINE SHIFT. CSF SPACES ARE WITHIN NORMAL LIMITS. THE POSTERIOR CRANIAL FOSSA IS UNREMARKABLE. ELECTRONICALLY SIGNED BY: FRANKLIN VELAZCO M.D. 06/10/2014 09:36 A FRANKLIN VELAZCO M.D. A #[id number] P/NATHALIE CC: PRIMARY CARE PHYS NO MART HARPER us Generic Conversion Md RUSSELL CT Final R esult documented in this encounter Visit Diagnoses Not on filedocumented in this encounter Care Teams Linux Server Administrator Relationship Specialty Start Date End Date Md Generic Conversion, PCP - General 02/20/17 Md Generic Conversion, PCP - General 10/11/16 7 Md Generic Conversion, PCP - General 07/19/16 Md, [...] Generic Conversion, MD PCP - General 06/09/1407/29 documented as of this encounter
--- OUTSIDE RECORDS SUMMARY | 2024-09-10 03:49 | XMS_ITS | Encounter Summary ---
Author Organization [facility] Address [address] [place] [address]. [place], [place] [address] [place] [address] Care Team Providers Care Seal Delivery Vehicle Officer Name Role Phone Md Generic Conversion Primary [...] Care Team (Late st Contact Info) Description 09/10/[address] [facility] [place] [address] Maine Sanchez APNP Social History Tobacco Use Types Packs/Day Years Used Date Smoking Tobacco: Never Assessed Sex and Gender Information Value Date Recorded Sex Assigned at Not on file Legal Sex Male 10:39 PM CDT Gender Identity Not on file Sexual Orientation Not on file documented as of this encounter Plan of Treatment Not on file documented as of this encounter Visit Diagnoses Diagnosis Chronic sinusitis Unspecified sinusitis (chronic) documented in this encounter Care Teams Seal Delivery Vehicle Officer Relationship Specialty Start Date End Date Alina Christensen MD PCP - General 02/20/17 Md Generic ConversionMD [...] Generic Conversion, MD PCP - General 09/10/14 documented as of this encounter
--- OUTSIDE RECORDS SUMMARY | 2024-09-10 03:49 | XMS_ITS | Encounter Summary ---
Author Organization [facility] Address [address] [place] [address]. [place] [address] Care Team Providers Care Balancer Name Role Phone Md Generic Conversion Primary [...] Department Care Team (Latest Contact Info) Description 04/10/2014 Abstract [facility] Social History Tobacco Use Types Packs/Day Years Used Date Smoking Tobacco: Never Assessed Sex and Gender Information Value Date Recorded Sex Assigned at Not on file Legal Sex Male 10:39 PM CDT Gender Identity Not on file Sexual Orientation Not on file documented as of this encounter Progress Notes * Generic Ivis Christensen MD - 04/10/2014 12:54 PM CDT Message Message: Spoke with this patient at length and explained to him we cannot take him on as a patient since he has been dismissed from Dr. Costello's practice and his group is part of ours. The patient states he has also been dismissed from [facility]. Encouraged patient to find care with another practice. Signatures Electronically signed by : Zenaida Pope R.N.; Apr 10 2014 12:57PM CUSTOM CLOTHIER (Author) documented in this encounter Plan of Treatment Not on file documented as of this encounter Visit Diagnoses Not on filedocumented in this encounter Care Teams Balancer Relationship Specialty Start Date End Date Md [...]
--- OUTSIDE RECORDS SUMMARY | 2024-09-10 03:49 | XMS_ITS | Encounter Summary ---
Author Organization [facility] Address [address] [place] [address]. 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 Name Role Phone Alina Russell MD Primary Care Provider Unavailable Encounter Details Date Type Department Care Team (Late st Contact Info) Description 10/11/2016 Orders Only [facility] [address] [place] [address] Alina Russell MD Social History Tobacco Use Types Packs/Day [...] Priority Date/Time Associated Diagnosis Comments CARDIOLOGY GENERIC 10/11/2016 8: 14 PM CLINIC SCHEDULER documented in this encounter Results * CARDIOLOGY GENERIC (10/11/2016 8:14 PM CLINIC SCHEDULER) 10/11/2016 8:14 PM CLINIC SCHEDULER Narrative [facility] - 10/12/2016 12:00 AM CLINIC SCHEDULER ? CARLOS KELLY MD: SEAN GUTIERREZ DNP ?? Acct: [id number] ?? Admit/Service Date: 10/11/16 Discharge Date: 10/11/16 ?? : 1970 Pt Type: DEP CLI ?? Sex: M Ord Site: [facility] [place] [facility] [place] ?[address], [place], [place] ?Test Date: ?2016-10-11 ?? Pat Name: ? VINCENT CORPUS ? Department: CARD ?? 40 ? Room: ? Gender: ? Male ? Integration Solution Architect: ?? KYRA W ?? : ?1970 ? Requested By: CRYSTAL JESENICK CRYSTAL JESENICK ?? Order Number: [id number] ?Reading MD: ?? Shiyam Satwani ?Measurements ?? Intervals ?[place] ? Rate: ? 55 ? P: ?12 ?? [place]: ? 160 ?QRS: ?23 ?? QRSD: ? 101 ?T: ?0 ?? QT: ? 409 ? QTc: ?395 ?Interpretive Statements ?? SINUS RHYTHM ?? Otherwise Normal ECG ?? No previous ECG available for comparison ?? IC SCHEDULER ? Procedure Note Swathi Brannon MD - 10/13/2016 CARLOS KELLY Ordering MD: SEAN GUTIERREZ DNP Acct: [id number] Admit/Service Date: 10/11/16 Discharge Date: 10/11/16 : 1970 Pt Type: DEP CLI Sex: M Ord Site: [address] Test Date: 2016-10-11 Pat Name: CARLOS KELLY Department: [facility] 40 Room: Gender: Male Integration Solution Architect: KYRA Escobedo : 1970 Requested By: SEAN GUTIERREZ Order Number: [id number] Reading MD: Swathi Brannon Measurements Intervals [place] Rate: 55 P: 12 [place]: 160 QRS: 23 QRSD: 101 T: 0 QT: 409 QTc: 395 Interpretive Statements SINUS RHYTHM Otherwise Normal ECG No previous ECG available for comparison IC SCHEDULER us Generic Conversion Md [facility] Edite d Result - Final [facility] documented in this encounter Visit Diagnoses Not on filedocumented in this encounter Care Teams Outboard Motor Mechanic Relationship Specialty Start Date End Date Alina Russell Conversion, PCP - General 10/11/16 7 documented as of this encounter
--- OUTSIDE RECORDS SUMMARY | 2024-09-10 03:49 | XMS_ITS | Encounter Summary ---
Author Organization [facility] Address [address] [place] [address]. [place], [place] [id number] [place], [place] [id number] Care Team Providers Care Vascular Tech Name Role Phone , Alina Langston MD Primary Care Provider Unavailable Reason for Visit * Reason Comments Headache SINUS PRESSURE Encounter Details Date Type Department Care Team (Latest Contact Info) Description 10/09/2017 5:45 PM COLLAR TURNER OPERATOR - 10/09/2017 8:28 PM COLLAR TURNER OPERATOR [facility] [address] [place] [address] Regina Brock APNP [address] [place] [address] Headache (SINUS PRESSURE) Discharge Disposition: Home or Self Care (Routine [...] Sign Reading Time Taken Comments Blood Pressure 140/88 10/09/2017 5:48 PM COLLAR TURNER OPERATOR Pulse 69 10/09/2017 5:48 PM COLLAR TURNER OPERATOR Temperature 36.3 ??C (97.4 ??F) 10/09/2017 5:48 PM CS T Respiratory Rate 18 10/09/2017 5:48 PM COLLAR TURNER OPERATOR Oxygen Saturation 100% 10/09/2017 5:48 PM COLLAR TURNER OPERATOR Inhaled Oxygen Concentration - - Weight 102.1 kg (225 lb) 10/09/2017 5:48 PM COLLAR TURNER OPERATOR Height 185.4 cm (6' 1 ) 10/09/2017 5:48 PM COLLAR TURNER OPERATOR Body Mass Index 29.69 10/09/2017 5:48 PM COLLAR TURNER OPERATOR documented in this encounter Discharge Instructions * Discharge Instructions* Regina BrockJANE - 10/09/2017 7:51 PM COLLAR TURNER OPERATOR Images from the original note were not included. Muscle Strain The Basics Written by the doctors and editors at [facility] What is a muscle strain???--??A muscle strain can happen when a muscle gets stretched too much or too quickly, or works too hard. This sometimes makes the muscle tear. Another term for a muscle strain is a pulled muscle. A muscle strain can happen during an accident or exercise. Muscles that are commonly strained include those in the back, neck, and back of the leg. What are the symptoms of a muscle strain???--??Symptoms happen in the area of the muscle strain andcan include: ?Pain ?Muscle spasm or tightness ?Swelling ?Bruising ?Weakness or being unable to move the muscle Will I need tests???--??Probably not. Your doctor or nurse should be able to tell if you have a muscle strain by learning about your symptoms and doing an exam. Some people need tests. Depending on your symptoms, your doctor or nurse might order an imaging test such as an ultrasound or MRI scan. Imaging tests create pictures of the inside of the body. How is a muscle strain treated???--??A muscle strain usually gets better on its own, but it can take days to weeks to heal completely. To help your symptoms get better, you can: ?Rest your muscle and avoid movements or activities that cause pain ?Ice the area - You can put a cold gel pack, bag of ice, or bag of frozen vegetables on the painfulmuscle every 1 to 2 hours, for 15 minutes each time. Put a thin towel between the ice (or other cold object) and your skin. Use the ice (or other cold object) for at least 6 hours after the injury. Some people find it helpful to ice up to 2 days after an injury. ?Wrap your muscle with an elastic bandage, other type of wrap, or fabric sleeve (picture 1) - This helps support your muscle. ?Raise the muscle above the level of your heart (if possible) - For example, you can prop your leg up on pillows. This is helpful only for the first few days after an injury. ?Take medicine to reduce the pain and swelling - If you have a lot of pain or a severe muscle strain, your doctor will prescribe a strong pain medicine. If your strain is not severe, you can take an pifx-ire-xuwjegh medicine such as acetaminophen (sample brand name: Tylenol), ibuprofen (sample brand names: Advil, Motrin), or naproxen (sample brand name: Aleve). After your pain gets better, your doctor or nurse will recommend that you gently stretch and exercise your muscle. Stretches and exercises can help strengthen your muscles and keep them from getting too stiff. Your doctor or nurse will show you stretches and exercises to do. Or he or she will have you work with a physical therapist (exercise expert). It's important to let your muscle heal before you play sports or do other activities that use the muscle again. If you don't let your muscle heal, you are likely to injure it again. Can a muscle strain be prevented???--??You can help prevent a muscle strain by taking time to warm up your muscles before you exercise. You can do this by walking or doing another light activity. If you are not sure how to warm up before exercising, ask your doctor, nurse, or physical therapist. All topics are updated as new evidence becomes available and our peer review process is complete. This topic retrieved from [employer] on: Mar 30, 2017. Topic 44172 Version 6.0 Release: 25.3 - C25.159 ?2017??[employer].??All rights reserved. picture 1: Thigh sleeve Wearing a thigh sleeve (the blue fabric band around the thigh) can help ease symptoms of a muscle strain. Graphic 47473 Version 1.0 Consumer Information Use and Disclaimer This information [...] that is right for you.The use of [employer] content is governed by the [employer] Terms of Use. ??2017 [employer] All rights reserved. Copyright ?2017??[employer]??All rights reserved. AR TURNER OPERATOR * Attachments The following attachments cannot be sent through Care Everywhere. * VIRAL SYNDROME DISCHARGE INSTRUCTIONS ([place]) documented in this encounter Medications at Time [...] of this encounter ED Notes * JANE Jensen - 10/09/2017 6:18 PM CST Images from the original note were not included. History Chief Complaint Patient presents with ??? Headache SINUS PRESSURE Carlos Mcgee is a 47-year-old male who presents reporting that he has been feeling ill for 1-2 months, reports had teeth pulled and then took amoxicillin to prevent abscess, reports recently was treated for +strep throat with Augmentin. Pt denies any f/c/n/v/d reports has been using albuterol inhaler more due to feeling SOB. Pt denies cough. Pt reports has been sneezing more than normal and hashad sinus pressure and congestion with frontal brow headache . Pt also reports Right 5th toe pain with pain going up ankle and into leg. Pt reports pain began today after wearing work shoes. Pt denies any injury reports pain only when walking. No other symptoms at this time. Past Medical History: Diagnosis Date ??? Anxiety ??? Depressed ??? Diabetes mellitus ??? Hypertension Prior to Admission medications Medication Sig Start Date End Date Taking? Authorizing Provider albuterol sulfate HFA 108 (90 BASE) MCG/ACT inhaler Inhale 2 puffs into the lungs every 6 (six) hours as needed for Wheezing. Yes Doc Abstract albuterol sulfate HFA 108 (90 BASE) MCG/ACT inhaler Inhale 2 puffs into the lungs every 6 (six) hours as needed. 10/09/17 10/09/18 Yes JANE Jensen alprazolam 2 MG tablet Take 2 mg by mouth nightly as needed. Yes Doc Abstract atenolol 100 MG tablet Take 100 mg by mouth daily. Yes Doc Abstract escitalopram 20 MG tablet Take 20 mg by mouth daily. Yes Doc Abstract fluticasone propionate 50 MCG/ACT nasal spray 1 spray by Nasal route daily. Yes Doc Abstract Past Surgical History: Procedure Laterality Date ??? CHOLECYSTECTOMY No family history on file. Social History Substance Use Topics ??? Smoking status: Never Smoker ??? Smokeless tobacco: Never Used ??? Alcohol use No Review of Systems Constitutional: Positive for fatigue. Negative for activity change, chills, diaphoresis and fever. HENT: Positive for congestion, sinus pressure and sneezing. Negative for drooling, ear discharge, ear pain, hearing loss, rhinorrhea, sinus pain, sore throat, tinnitus and trouble swallowing. Eyes: Negative for photophobia, pain, discharge, redness and visual disturbance. Respiratory: Positive for shortness of breath. Negative for cough, chest tightness and wheezing. Reports rib pain Cardiovascular: Negative for chest pain, palpitations and leg swelling. Gastrointestinal: Negative for abdominal pain, blood in stool, constipation, diarrhea, nausea and vomiting. Endocrine: Negative for cold intolerance, heat intolerance, polydipsia, polyphagia and polyuria. Genitourinary: Negative for dysuria, flank pain, frequency and urgency. Musculoskeletal: Positive for arthralgias. Negative for back pain, gait problem, neck pain and neckstiffness. Skin: Negative for color change and rash. Allergic/Immunologic: Negative for environmental allergies and food allergies. Neurological: Positive for headaches. Negative for dizziness, weakness, light- headedness and numbness. Hematological: Negative for adenopathy. All other systems reviewed and are negative. Physical Exam Filed Vitals: 10/09/17 1748 BP: 140/88 Pulse: 69 Resp: 18 Temp: 97.4 ??F (36.3 ??C) TempSrc: Temporal SpO2: 100% Weight: 102.1 kg (225 lb) Height: 6' 1 (1.854 m) Physical Exam Constitutional: He is oriented to person, place, and time. He appears well- developed and well-nourished. No distress. HENT: Head: Normocephalic and atraumatic. Right Ear: Hearing, tympanic membrane, external ear and ear canal normal. Left Ear: Hearing, tympanic membrane, external ear and ear canal normal. Nose: Mucosal edema present. Right sinus exhibits frontal sinus tenderness. Right sinus exhibits nomaxillary sinus tenderness. Left sinus exhibits frontal sinus tenderness. Left sinus exhibits no maxillary sinus tenderness. Mouth/Throat: Uvula is midline, oropharynx is clear and moist and mucous membranes are normal. No trismus in the jaw. No uvula swelling. No oropharyngeal exudate, posterior oropharyngeal edema, posterior oropharyngeal erythema or tonsillar abscesses. Eyes: Conjunctivae and EOM are normal. Pupils are equal, round, and reactive to light. Neck: Trachea normal and normal range of motion. Neck supple. No tracheal tenderness, no spinous process tenderness and no muscular tenderness present. No rigidity. No edema, no erythema and normal range of motion present. No thyromegaly present. Cardiovascular: Intact distal pulses. Pulses: Dorsalis pedis pulses are 2+ on the right side Posterior tibial pulses are 2+ on the right side, and 2+ on the left side. < 2 sec cap refill to all 5 toes right foot Pulmonary/Chest: Effort normal and breath sounds normal. No accessory muscle usage or stridor. No respiratory distress. He has no decreased breath sounds. He has no wheezes. He has no rhonchi. He hasno rales. Abdominal: Soft. Musculoskeletal: Normal range of motion. He exhibits no edema or deformity. Right ankle: Normal. He exhibits normal range of motion, no swelling, no ecchymosis, no deformity, no laceration and normal pulse. No tenderness. No lateral malleolus, no medial malleolus, no AITFL, no CF ligament, no posterior TFL, no head of 5th metatarsal and no proximal fibula tenderness found.Achilles tendon normal. Achilles tendon exhibits no pain, no defect and normal Ramsey's test results. Right lower leg: Normal. He exhibits no tenderness, no bony tenderness, no swelling, no edema, no deformity and no laceration. Right foot: There is tenderness. There is normal range of motion, no bony tenderness, no swelling, normal capillary refill, no crepitus, no deformity and no laceration. Feet: Lymphadenopathy: He has no cervical adenopathy. Neurological: He is alert and oriented to person, place, and time. He has normal reflexes. No cranial nerve deficit. Coordination normal. Skin: Skin is warm and dry. No rash noted. He is not diaphoretic. No erythema. Psychiatric: He has a normal mood and affect. His speech is normal and behavior is normal. Judgmentand thought content normal. Cognition and memory are normal. Nursing note and vitals reviewed. Labs Reviewed CBC, AUTO, NO DIFF - Abnormal; Notable for the following: Result Value HGB 12.2 (*) HCT 39.7 (*) MCV 67.7 (*) MCH 20.8 (*) MCHC 30.7 (*) RDW 16.9 (*) MPV 8.8 (*) All other components within normal limits BMP W IONIZED CA WH BLOOD RAPID STREP A STREP A, DNA XR CHEST PA+LAT Final Result by User, [id number] (10/09 1911) EXAMINATION: Chest X-Ray 2 View EXAM DATE/TIME: 10/09/2017 6:25 PM REASON FOR EXAM: reports sob, pmh asthma Bilateral rib pain for 3 days. COMPARISON: 02/20/2017 TECHNIQUE: PA and lateral views of the chest were obtained. FINDINGS: Heart size is within normal limits. Pulmonary vasculature is within normal limits. There is no large pleural effusion or pneumothorax. There is no focal infiltrate or consolidative change. Curvature the spine, concave to left is seen. =====IMPRESSION:===== 1. No acute cardiopulmonary findings. RIBS LT UNI Final Result by User, [id number] (10/09 1911) EXAMINATION: Left Ribs EXAM DATE/TIME: 10/09/2017 6:25 PM REASON FOR EXAM: reports rib pain, no injury COMPARISON: None TECHNIQUE: 4 views of the left ribs were obtained FINDINGS: No acute fracture or dislocation. No destructive osseous lytic or sclerotic lesions. Visualized left lung is clear. =====IMPRESSION:===== No evidence of left rib fractures. RIBS RT UNI Final Result by User, [id number] (10/09 1910) EXAMINATION: Right Ribs EXAM DATE/TIME: 10/09/2017 6:25 PM REASON FOR EXAM: rib pain, no injury COMPARISON: None TECHNIQUE: 4 views of the right ribs were obtained FINDINGS: No acute fracture or dislocation. No destructive osseous lytic or sclerotic lesions. Visualized right lung is clear. =====IMPRESSION:===== No evidence of right rib fractures. FOOT RT 3V Final Result by User, [id number] (10/09 1907) EXAMINATION: Right foot 3 views EXAM DATE/TIME: 10/09/2017 6:25 PM REASON FOR EXAM: pain to right 5th toe today, no injury COMPARISON: None TECHNIQUE: AP, oblique, and lateral views of the right foot were obtained. FINDINGS: No acute fracture or dislocation. Joint spaces preserved. No destructive osseous lytic or sclerotic lesions. No radiopaque foreign bodies. Spurring the calcaneus is seen. Minimal first metatarsal-phalangeal joint spurring is noted. =====IMPRESSION:===== Spurring the calcaneus is seen. Minimal first metatarsal-phalangeal spurring is noted. Course Procedures MDM Number of Diagnoses or Management Options Right foot strain: Viral syndrome: Diagnosis management comments: Pt request to be swabbed for strep Pt request refill of albuterol inhaler Amount and/or Complexity of Data Reviewed Clinical lab tests: reviewed Tests in the radiology section of CPT??: reviewed Follow up with your doctor in 7-10 days Return for any worsening symptoms or concerns JANE JENSEN APNP 10/09/171958 AR TURNER OPERATOR * Jacquelyn Post RN - 10/09/2017 6:13 PM CST PRESSURE AND HEAD ACHE. C/O RIGHT CALF PAIN AND 5TH TOE PAIN. AR TURNER OPERATOR * Alexandria Sexton RN - 10/09/2017 5:55 PM CST TO WITH C/O COUGH AND SINUS PRESSURE, SORE THROAT, SX FOR ABOUT 2 WEEKS. PT STATED HE WAS SEEN AT [facility], DX WITH STREP AND GIVEN AUGMENTIN FOR 7 DAYS. WAS THEN ON AMOXICILLIN FOR 10 DAYS FORA PULLED TOOTH. PT ALSO C/O BACK OF RIGHT CALF AND TOE. FLIGHT OF IDEAS, PT TALKING FROM ONE SUBJECT TO ANOTHER THEN COMES BACK TO ORIGINAL SUBJECT. DIFFICULT TO ASSESS. PT HAS ASKED ME SEVERAL TIMES IF I WAS A NURSE, REPEATED SEVERAL TIMES I WAS. HE IS ASKING ME TO TELL HIM IF HE THOUGHT HE WAS RUDE TO A NURSE AT [facility] WHEN HE WAS TALKED TO ABOUT HIS ATTITUDE, ADVISED I COULD NOT ANSWER THAT QUESTION,. AR TURNER OPERATOR documented in this encounter Plan of Treatment Not on file documented as of this encounter Procedures Procedure Name Priority Date/Time Associated Diagnosis Comments STREP A, DNA STAT 10/09/2017 7:41 PM COLLAR TURNER OPERATOR RAPID STREP A STAT 10/09/2017 7:41 PM COLLAR TURNER OPERATOR XR RIBS RT UNI STAT 10/09/2017 7:01 PM COLLAR TURNER OPERATOR XR RIBS LT UNI STAT 10/09/2017 7:01 PM COLLAR TURNER OPERATOR XR FOOT RT 3V STAT 10/09/2017 7:01 PM COLLAR TURNER OPERATOR XR CHEST PA+LAT STAT 10/09/2017 7:01 PM COLLAR TURNER OPERATOR BMP W IONIZED CA WH BLOOD STAT 10/09/2017 6:18 PM COLLAR TURNER OPERATOR CBC, AUTO, NO DIFF STAT 10/09/2017 6: 18 PM COLLAR TURNER OPERATOR documented in this encounter Results * STREP A, DNA (10/09/2017 7:41 PM COLLAR TURNER OPERATOR) STREP A MOLECULAR NEGATIVE NEGATIVE 018 2:11 PM COLLAR TURNER OPERATOR [facility] Comment:SPECIMEN NEGATIVE FO R GROUP A STREPTOCOCCUS BY DNA AMPLIFICATION 10/09/2017 7:41 PM COLLAR TURNER OPERATOR Regina LARA MICROBIOLOGY - GENERAL OR DERABLES Final Result Performing Organization Address [facility] Co de Phone Number [facility] [address] [place] [address], * RAPID STREP A (10/09/2017 7:41 PM COLLAR TURNER OPERATOR) SPECIMEN TYPE THROAT 10/09/2017 7:41 PM COLLAR TURNER OPERATOR [facility] RAPID STREP TEST NEGATIVE NEGATIVE 10/09/2017 7:48 PM COLLAR TURNER OPERATOR [facility] STRUCTURE OF ANTERIOR PORTION OF NECK / Unknown 10/09/2017 7:41 PM COLLAR TURNER OPERATOR Regina LARA MICROBIOLOGY - GENERAL OR DERABLES Final Result Performing Organization Address [place]/[facility] Co de Phone Number [facility] [address] [place] [address], [place] * XR RIBS LT UNI (10/09/2017 7:01 PM COLLAR TURNER OPERATOR) Anatomical Region Laterality Modality Chest Radiographic Katarzyna ging 10/09/2017 7:08 PM COLLAR TURNER OPERATOR Impressions 10/09/2017 7:09 PM COLLAR TURNER OPERATOR =====IMPRESSION:===== ?? No evidence of left rib fractures. Narrative 10/09/2017 7:09 PM COLLAR TURNER OPERATOR EXAMINATION: Left Ribs EXAM DATE/TIME: 10/09/2017 6:25 PM REASON FOR EXAM: ??reports rib pain, no injury ? COMPARISON: None TECHNIQUE: 4 views of the left ribs were obtained FINDINGS: No acute fracture or dislocation. No destructive osseous lytic or sclerotic lesions. Visualized left lung is clear. Procedure Note Vignesh Urrutia MD - 10/09/2017 EXAMINATION: Left Ribs EXAM DATE/TIME: 10/09/2017 6:25 PM REASON FOR EXAM: reports rib pain, no injury COMPARISON: None TECHNIQUE: 4 views of the left ribs were obtained FINDINGS: No acute fracture or dislocation. No destructive osseous lyticor sclerotic lesions. Visualized left lung is clear. =====IMPRESSION:===== No evidence of left rib fractures. us Regina Schreiber Vinod APNP GENERAL IMAGING Final Res ult * XR CHEST PA+LAT (10/09/2017 7:01 PM COLLAR TURNER OPERATOR) Anatomical Region Laterality Modality Chest Radiographic Katarzyna ging 10/09/2017 7:05 PM COLLAR TURNER OPERATOR Impressions 10/09/2017 7:09 PM COLLAR TURNER OPERATOR =====IMPRESSION:===== ?? 1. ??No acute cardiopulmonary findings. Narrative 10/09/2017 7:09 PM COLLAR TURNER OPERATOR EXAMINATION: Chest X-Ray 2 View EXAM DATE/TIME: 10/09/2017 6:25 PM REASON FOR EXAM: ??reports sob, pmh asthma ? Bilateral rib pain for 3 days. COMPARISON: 02/20/2017 TECHNIQUE: PA and lateral views of the chest were obtained. FINDINGS: Heart size is within normal limits. Pulmonary vasculature is within normal limits. There is no large pleural effusion or pneumothorax. There is no focal infiltrate or consolidative change. Curvature the spine, concave to left is seen. Procedure Note Vignesh Urrutia MD - 10/09/2017 EXAMINATION: Chest X-Ray 2 View EXAM DATE/TIME: 10/09/2017 6:25 PM REASON FOR EXAM: reports sob, pmh asthma Bilateral rib pain for 3 days. COMPARISON: 02/20/2017 TECHNIQUE: PA and lateral views of the chest were obtained. FINDINGS: Heart size is within normal limits. Pulmonary vasculature is within normal limits. There is no large pleural effusion orpneumothorax. There is no focal infiltrate or consolidative change. Curvature thespine, concave to left is seen. =====IMPRESSION:===== 1. No acute cardiopulmonary findings. Regina Brock APNP GENERAL IMAGING Final Res ult * XR RIBS RT UNI (10/09/2017 7:01 PM COLLAR TURNER OPERATOR) Anatomical Region Laterality Modality Chest Radiographic Katarzyna ging 10/09/2017 7:06 PM COLLAR TURNER OPERATOR Impressions 10/09/2017 7:08 PM COLLAR TURNER OPERATOR =====IMPRESSION:===== ?? No evidence of right rib fractures. ?? Narrative 10/09/2017 7:08 PM COLLAR TURNER OPERATOR EXAMINATION: Right Ribs EXAM DATE/TIME: 10/09/2017 6:25 PM ?? REASON FOR EXAM: ??rib pain, no injury ? COMPARISON: None TECHNIQUE: 4 views of the right ribs were obtained FINDINGS: No acute fracture or dislocation. No destructive osseous lytic or sclerotic lesions. Visualized right lung is clear. ?? Procedure Note Vignesh Urrutia MD - 10/09/2017 EXAMINATION: Right Ribs EXAM DATE/TIME: 10/09/2017 6:25 PM REASON FOR EXAM: rib pain, no injury COMPARISON: None TECHNIQUE: 4 views of the right ribs were obtained FINDINGS: No acute fracture or dislocation. No destructive osseous lyticor sclerotic lesions. Visualized right lung is clear. =====IMPRESSION:===== No evidence of right rib fractures. Regina Brock APNP GENERAL IMAGING Final Res ult * XR FOOT RT 3V (10/09/2017 7:01 PM COLLAR TURNER OPERATOR) Anatomical Region Laterality Modality Foot Radiographic Katarzyna ging 10/09/2017 7:04 PM COLLAR TURNER OPERATOR Impressions 10/09/2017 7:05 PM COLLAR TURNER OPERATOR =====IMPRESSION:===== ?? Spurring the calcaneus is seen. Minimal first metatarsal-phalangeal spurring is noted. Narrative 10/09/2017 7:05 PM COLLAR TURNER OPERATOR EXAMINATION: Right foot 3 views EXAM DATE/TIME: 10/09/2017 6:25 PM REASON FOR EXAM: ??pain to right 5th toe today, no injury ? COMPARISON: None TECHNIQUE: AP, oblique, and lateral views of the right foot were obtained. FINDINGS: No acute fracture or dislocation. Joint spaces preserved. No destructive osseous lytic or sclerotic lesions. No radiopaque foreign bodies. Spurring the calcaneus is seen. Minimal first metatarsal-phalangeal joint spurring is noted. Procedure Note Vignesh Urrutia MD - 10/09/2017 EXAMINATION: Right foot 3 views EXAM DATE/TIME: 10/09/2017 6:25 PM REASON FOR EXAM: pain to right 5th toe today, no injury COMPARISON: None TECHNIQUE: AP, oblique, and lateral views of the right foot wereobtained. FINDINGS: No acute fracture or dislocation. Joint spaces preserved. No destructive osseous lytic or sclerotic lesions. No radiopaque foreign bodies. Spurring the calcaneus is seen. Minimal firstmetatarsal-phalangeal joint spurring is noted. =====IMPRESSION:===== Spurring the calcaneus is seen. Minimal first metatarsal-phalangeal spurring is noted. us Regina Brock APNP GENERAL IMAGING Final Res ult * BMP W IONIZED CA WH BLOOD (10/09/2017 6:18 PM COLLAR TURNER OPERATOR) GLUCOSE ARTERIAL 85 70 - 99 mg/dL 10/09/2017 7:21 PM [facility] BUN WHOLE BLOOD 12 8 - 23 mg/dL 10/09/2017 7:21 PM [facility] CREATININE WHOLE BLOOD 0.8 0.70 - 1.20 mg/dL 10/09/2017 7:21 PM [facility] SODIUM WHOLE BLOOD 145 136 - 145 mmol/L 10/09/2017 7:21 PM [facility] POTASSIUM WHOLE BLOOD 4.0 3.5 - 5.1 mmol/L 10/09/2017 7:21 PM [facility] CHLORIDE WHOLE BLOOD 106 98 - 107 mmol/L 10/09/2017 7:21 PM [facility] POC CO2 WHOLE BLOOD 26 22 - 29 mmol/L 10/09/2017 7:21 PM [facility] CA IONIZED WH BLOOD 1.23 1.12 - 1.32 mmol/L 10/09/2017 7:21 PM [facility] ANION GAP 17 8 - 20 MMOL/L 10/09/2017 7:21 PM [facility] EGFR NON-AFR. AMER. >60 >60 mL/min/1.7 '2 10/09/2017 7:21 PM [facility] EGFR AFR. AMER. >60 >60 mL/min/1.7 '2 10/09/2017 7:21 PM [facility] Comment: NOTE: eGFR is not calculated for patients <18 years of age. This is an estimated GFR (CKD EPI) and should not be used for calculating drug doses. 10/09/2017 6:18 PM COLLAR TURNER OPERATOR us Regina Schreiber Vinod APNP LABORATORY Final Res ult [address] [address], [place] * (ABNORMAL) CBC, AUTO, NO DIFF (10/09/2017 6:18 PM COLLAR TURNER OPERATOR) WBC 6.1 4.8 - 10.8 x10'3/uL 10/09/2017 7:18 PM COLLAR TURNER OPERATOR [facility] Comment: TESTING PERFORMED AT [address] ??[id number] LIANE VICTORIA M.D., GOLD LETTERER RBC 5.86 4.70 - 6.10 x10'6/uL 10/09/2017 7:18 PM COLLAR TURNER OPERATOR [facility] HGB 12.2(L) 14.0 - 18.0 G/DL 10/09/2017 7:18 PM COLLAR TURNER OPERATOR [facility] HCT 39.7(L) 43.0 - 54.0 % 10/09/2017 7:18 PM COLLAR TURNER OPERATOR [facility] MCV 67.7(L) 80.0 - 94.0 FL 10/09/2017 7:18 PM COLLAR TURNER OPERATOR [facility] MCH 20.8(L) 27.0 - 31.0 PG 10/09/2017 7:18 PM COLLAR TURNER OPERATOR [facility] MCHC 30.7(L) 32.0 - 36.0 G/DL 10/09/2017 7:18 PM COLLAR TURNER OPERATOR [facility] RDW 16.9(H) 11.5 - 14.5 % 10/09/2017 7:18 PM COLLAR TURNER OPERATOR [facility] PLT 204 130 - 400 x10'3/uL 10/09/2017 7:18 PM COLLAR TURNER OPERATOR [facility] MPV 8.8(L) 9.3 - 12.2 FL 10/09/2017 7:18 PM COLLAR TURNER OPERATOR [facility] 10/09/2017 6:18 PM COLLAR 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
--- OUTSIDE RECORDS SUMMARY | 2024-09-10 03:49 | XMS_ITS | Encounter Summary ---
Author Organization [facility] Address [address] [place] [address]. [place], [place] [id number] [place] [address] Care Team Providers Care Hardware Designer Name Role Phone Alina Christensen MD Primary Care Provider Unavailable Encounter Details Date Type Department Care Team (Late st Contact Info) Description 02/20/2017 Orders Only [facility] [address] [place] [id number] Phil Pichardo MD [address] [place] [address] Social History Tobacco Use Types Packs/Day Years [...] Priority Date/Time Associated Diagnosis Comments CARDIOLOGY GENERIC 02/20/2017 6: 41 PM CDT documented in this encounter Results * CARDIOLOGY GENERIC (02/20/2017 6:41 PM CDT) 02/20/2017 6:41 PM CDT Narrative [facility] RADIOLOGY - 02/20/2017 12:00 AM CDT ? CARLOS KELLY MD: PHIL PICHARDO MD ?? Acct: [id number] ?? Admit/Service Date: 02/20/17 Discharge Date: ?? : 1970 Pt Type: REG ER ?? Sex: M Ord Site: [facility] ?[facility] [place] ?[address], [place], [place] ?Test Date: ?2017-02-20 ?? Pat Name: ? VINCENT CORPUS ? Department: CARD ?? 41 ? Room: ? Gender: ? Male ? 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 : ?1970 ? Requested By: PHIL GARCHITORENA PHIL GARCHITORENA ?? Order Number: [id number] ?Reading MD: ?? John Millan ?Measurements ?? Intervals ?[place] ? Rate: ? 64 ? P: ?8 ?? TX: ? 160 ?QRS: ?31 ?? QRSD: ? 97 ? T: ?-5 ?? QT: ? 376 ? QTc: ?390 ?Interpretive Statements ?? SINUS RHYTHM ?? Left atrial enlargement ?? Compared to ECG 10/11/2016 20:14:21 ?? No significant change ? 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: IE : 1970 Requested By: PHIL PICHARDO Order Number: [id number] Reading MD: John Millan Measurements Intervals [place] Rate: 64 P: 8 TX: 160 QRS: 31 QRSD: 97 T: -5 QT: 376 QTc: 390 Interpretive Statements SINUS RHYTHM Left atrial enlargement Compared to ECG 10/11/2016 20:14:21 No significant change us Phil Pichardo MD [facility] Result [facility] RADIOLOGY documented in this encounter Visit Diagnoses Not on filedocumented in this encounter Care Teams Hardware Designer Relationship Specialty Start Date End Date Alina Christensen MD PCP - General 02/20/17 documented as of this encounter
--- OUTSIDE RECORDS SUMMARY | 2024-09-10 03:49 | XMS_ITS | Encounter Summary ---
Author Organization [facility] Address [address] [place] [address]. [place], [place] [id number] [place] [address] Care Team Providers Care Supply Chain Specialist Name Role Phone Md Generic Conversion Primary [...] Care Team (Late st Contact Info) Description 06/09/2014 Emergency [facility] [place] [address] Ester Kennedy MD [address] [place] [address] [address] [place], [place] [id number] Social History Tobacco Use Types Packs/Day Years Used Date Smoking Tobacco: Never Assessed Sex and Gender Information Value Date Recorded Sex Assigned at Not on file Legal Sex Male 10:39 PM CDT Gender Identity Not on file Sexual Orientation Not on file documented as of this encounter Plan of Treatment Not on file documented as of this encounter Visit Diagnoses Diagnosis Diverticulitis of colon Diverticulitis of colon (without mention of hemorrhage) documented in this encounter Care Teams Supply Chain Specialist Relationship Specialty Start Date End Date Alina [...]
--- OUTSIDE RECORDS SUMMARY | 2024-09-10 03:49 | XMS_ITS | Encounter Summary ---
Author Organization [facility] Address [address] [place] [address]. [place], [place] [id number] [place] [address] Care Team Providers Care Wood Model Builder Name Role Phone Alina Christensen MD Primary Care Provider Unavailable Alina Christensen MD Primary Care Provider Unavailable Alina Christensen MD Primary Care Provider Unavailable Alina Christesnen MD Primary Care Provider Unavailable Encounter Details Date Type Department Care Team (Late st Contact Info) Description 05/06/[address] [facility] [place] [address] Prosper Tellez MD [facility] [place] [address] Social History Tobacco Use Types Packs/Day Years Used Date Smoking Tobacco: Never Assessed Sex and Gender Information Value Date Recorded Sex Assigned at Not on file Legal Sex Male 10:39 PM CDT Gender Identity Not on file Sexual Orientation Not on file documented as of this encounter Plan of Treatment Not on file documented as of this encounter Visit Diagnoses Diagnosis Other skin changes documented in this encounter Care Teams Wood Model Builder Relationship Specialty Start Date End Date Alina Christensen MD PCP - General 02/20/17 Alina Christensen MD PCP - General 10/11/16 7 Alina Christensen MD PCP - General 07/19/16 Alina Christensen MD PCP - General 05/06/16 documented as of this encounter
--- OUTSIDE RECORDS SUMMARY | 2024-09-10 03:49 | XMS_ITS | Encounter Summary ---
Author Organization [facility] Address [address] [place] [address]. [place], [place] [id number] [place] [id number] Care Team Providers Care [employer] Web[employer] Portal Developer Name Role Phone Unavailable Primary Care Provider Unavailabl e Reason for Referral * Imaging (Emergency) - Closed Specialty Diagnoses / Procedures Referred By Contac t Referred To Contact Procedures CT ABD+PEL WO CON Marcelle Bergman NP Phone: tel: fax: Referral ID Status Reason Start Date Expiration Date Visits Re quested Visits Authorized [id number] Closed 04/30/2018 05/31/2019 1 1 Reason for Visit * Reason Comments Urinary Symptoms Encounter Details Date Type Department Care Team (Late st Contact Info) Description 04/30/2018 5:00 PM CDT - 04/30/2018 7:13 PM CDT Hospital Encounter [facility] [address] [place] [address] Marcelle Bergman NP [address] [address] Urinary Symptoms Discharge Disposition: Home or Self [...] Reading Time Taken Comments Blood Pressure 154/93 04/30/2018 5:03 PM CDT Pulse 87 04/30/2018 5:03 PM CDT Temperature 36.6 ??C (97.9 ??F) 04/30/2018 5:03 PM CD T Respiratory Rate 18 04/30/2018 5:03 PM CDT Oxygen Saturation 98% 04/30/2018 5:03 PM CDT Inhaled Oxygen Concentration - - Weight 127 kg (280 lb) 04/30/2018 5:03 PM CDT Height 185.4 cm (6' 1 ) 04/30/2018 5:03 PM CDT Body Mass Index 36.94 04/30/2018 5:03 PM CDT documented in this encounter Discharge Instructions * Discharge Instructions* JANE Waller - 04/30/2018 7:07 PM CDT Images from the original note were not included. Patient Education Blood in the Urine (Hematuria) Discharge Instructions, Adult About this topic Blood in your urine is called hematuria. It may be a sign of an illness you have or of a more serious problem. Sometimes, you have so much blood in your urine you can see it. Other times, you can only see the blood using a microscope. There are many causes of blood in the urine. The treatment will depend on what is causing your problem. If the cause of hematuria is due to drugs, signs go away when you stop taking the drug. If the cause of hematuria is exercise, signs often go away within a few days. What care is needed at home? ?? [...] Do not include drinks with caffeine like coffee, tea, or alexus. ?? Do not hold back your urine. Go to the bathroom every 2 to 3 hours. What follow-up care is needed? ?? Your doctor may ask you to make visits to the office to check on your progress. Be sure to keep these visits. ?? Your doctor may ask you to have more urine or blood tests, or scans. ?? Your doctor may have you go see a specialist. You may need to see a kidney doctor called a meat cutting block repairer or urologist. What drugs may be needed? The doctor may order drugs to: ?? Help with pain ?? Fight an infection Will physical activity be limited? Talk to your doctor about the right amount of activity for you. When do I need to call the doctor? ?? Signs of infection. These include a fever of 100.4??F (38??C) or higher, chills, or pain with passing urine. ?? Very bad pain in your back or side ?? Passing only small amounts of urine or not able to pass urine ?? Blood clots in your urine ?? A big change in how your urine looks, such as bright red urine or dark urine, like cola. ?? You are not feeling better in [...] condition. ?? I can tell you what good fluids for me to drink are and how often I should try to go to the bathroom. ?? I can tell you what I will do if I have a fever, chills, pain with passing urine, blood clots inmy urine, or back or side pain. Where can I learn more? National Kidney and Urologic Diseases Information Clearinghouse http://kidney.niddk.nih.gov/kudiseases/pubs/hematuria/ Last Reviewed Date 2017-08-10 Consumer Information Use and Disclaimer This information [...] for you. Copyright Copyright ?? 2018 [employer], Inc. and its affiliates and/or licensors. All rights reserved. Patient Education Constipation Discharge Instructions, Adult About this topic Constipation is a problem that makes it harder to have bowel movements. With this, you may move your bowels fewer than 3 times a week. Stools may be hard, dry, and large in size. You may have pain when passing stools. Most of the time, constipation is just for a short time. What care is needed at home? ?? Ask your doctor what you need to do when you go home. Make sure you ask questions if you do not understand what the doctor says. This way you will know what you need to do. ?? Drink 6 to 8 glasses of water each day. ?? Limit your intake of beer, wine, and mixed drinks (alcohol) and caffeinated drinks, such as coffee, tea, or cola drinks. ?? Set a regular schedule to pass stools. Do not ignore the urge to have a bowel movement. ?? Give yourself plenty of time to have a bowel movement. ?? Eat a high fiber diet. ?? Do mild exercise such as a brisk walk. ?? Sitting in a warm bath may help you relax and feel like having a bowel movement. What follow-up care is needed? Your doctor may ask you to make visits to the office to check on your progress. Be sure to keep these visits. What drugs may be needed? The doctor may order drugs to: ?? Help you move your bowels ?? Soften stools, like mineral oils ?? Add bulk to the stool, like fiber supplements Will physical activity be limited? Your physical activities will not be limited in most cases. Try to stay physically active. This mayhelp treat hard stools. What changes to diet are needed? ?? Eat high fiber foods. These include whole grains, fruits, and vegetables. ?? Limit sugary, fatty, and starchy foods. ?? Drink 6 to 8 glasses of water each day. What problems could happen? ?? Rectal bleeding ?? Hemorrhoids ?? Tears around the skin of the anus ?? Hard stool may pack the large bowels very tightly. If this happens, the normal pushing action ofthe bowels is not enough to remove the stool. This is called fecal impaction. What can be done to prevent this health problem? ?? Do not ignore the urge to have bowel movements. Move your bowels as soon as you feel the urge todo so. ?? Have a regular time for your bowel movements. The best time may be after breakfast or any other meals. ?? Eat foods that are high in fiber such as whole grain breads and cereal. Eat at least 5 servings of fruits and vegetables each day. ?? Do not take drugs (laxatives) to help you move your bowels too often. Overuse of these drugs mayharm your bowels and may make your health problem worse. ?? Eat less sweets, cheese, and processed foods. These foods are high in fat or sugar and low in fiber, which may cause hard stools. When do I need to call the doctor? Seek care right away or go to the ER if you have: ?? Lots of rectal bleeding ?? Sagging of the rectum ?? Very bad belly pain with hard stools and fever of 100.4??F (38??C) or higher, chills Call your doctor if you have: ?? Change in bowel habits (hard stools alternating with??loose stools) ?? Very bad pain in the anus during a bowel movement ?? Hemorrhoids ?? White or chalk colored stools ?? Cracks or a tear in the lining of your anus ?? Hard stools for more than 2 weeks with returning belly pain Teach Back: Helping You Understand The Teach [...] what I will do if I have lots of rectal bleeding or very bad belly pain with hardstools and a fever. Where can I learn more? FamilyDoctor.org http://familydoctor.org/familydoctor/en/diseases-conditions/constipation.html National Digestive Diseases??Information Clearinghouse http://digestive.niddk.nih.gov/ddiseases/pubs/constipation/#who Last Reviewed Date 2016-11-02 Consumer Information Use and Disclaimer This information [...] right for you. Copyright Copyright ?? 2018 [employer]. and its affiliates and/or licensors. All rights [...] (two) times daily. 6 mL 02/01/2018 06/18/2018 ciprofloxacin (CIPRO) 500 MG tablet Take 1 tablet (500 mg total) by mouth 2 (two) times daily for 10 days. 20 tablet 04/30/2018 05/10/2018 escitalopram 20 MG tablet Take 40 mg by mouth daily. 09/19/2018 fluticasone propionate 50 MCG/ACT nasal spray 1 spray by Nasal route daily. 12/12/2018 methylPREDNISolon e, BIJU, 4 MG tablet 6 TABLETS ON DAY ONE, 5 TABLETS DAY TWO, 4 TABLETS DAY THREE, 3 TABLETS DAY FOUR, 2 TABLETS DAY FIVE, AND 1 TABLET DAY SIX 1 each 02/01/2018 06/03/2018 metroNIDAZOLE 500 MG tablet Take 1 tablet (500 mg total) by mouth 3 (three) times daily for 10 days. 30 tablet 04/30/2018 05/10/2018 Olopatadine HCl 0.6 % Solution 2 sprays by Nasal route. 04/29/2018 06/18/2018 documented as of this encounter ED Notes * Venus Noel RN - 04/30/2018 7:00 PM CDT Patient to nurses station multiple times asking questions. * Venus Noel RN - 04/30/2018 5:24 PM CDT Patient to with c/o suprapubic pain and pain with urination x 3 days. Also reports bumps on his penis. * JANE Waller - 04/30/2018 5:04 PM CDT Emergency Department Note Chief Complaint Chief Complaint Patient presents with ??? Urinary Symptoms History of Present Illness Patient complains of burning on urination and bladder tenderness. It started 3 days ago. Denies a history of kidney problems. States that he is prediabetic. He also reports that he had red dots on his penis though it not sexually active and talked to the pharmacist advised him to use [id number] Lamisil. 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 On further conversation he brings up multiple complaints and comments that he fired his most recentdoctor and his primary care doctors usually fire him over his allergies because he has so many allergies that they get frustrated. Complains that he has sinus symptoms and is on 3 rounds of steroids and 2 rounds of antibiotics, ispresently taking amoxicillin. He has seen 2 ENTs because he wanted a second opinion. Sinus symptomshave been present since Wednesday and not getting any better but states that he did not come in for those symptoms. He also complains that he has been fatigued for 2 months. He states that he was so fatigued a while back and was confused and he went to outside hospital where they did a CAT scan ruled out a stroke. States they could not find anything wrong with him. States that even though is not sexually active he would like to be tested for STDs. Did advise him with tests for chlamydia and gonorrhea and results will not be back today and as he is not having symptoms, will not treat but will call with positive results. Medical History ALLERGIES: Allergies Allergen Reactions ??? Ketorolac Tromethamine Anaphylaxis ??? Pepcid [Famotidine] Shortness of Breath ??? Bactrim [Sulfamethoxazole-Trimethoprim] Hives ??? Contrast [Iodine] Hives ??? Keflex [Cephalexin] Hives ??? Levofloxacin Unknown ??? Lidocaine Angioedema ??? Oxycodone Hives ??? Zithromax [Azithromycin] Hives ??? Paxil [Paroxetine] Anxiety MEDICATIONS: Prior to Admission medications Medication Sig Start Date End Date Taking? Authorizing Provider ciprofloxacin (CIPRO) 500 MG tablet Take 1 tablet (500 mg total) by mouth 2 (two) times daily for 10 days. 04/30/18 05/10/18 Yes JANE Waller metroNIDAZOLE 500 MG tablet Take 1 tablet (500 mg total) by mouth 3 (three) times daily for 10 days. 04/30/18 05/10/18 Yes JANE Waller albuterol sulfate HFA 108 [...] spray by Nasal route daily. Doc Abstract methylPREDNISolone, BIJU, 4 MG tablet 6 TABLETS ON DAY ONE, 5 TABLETS DAY TWO, 4 TABLETS DAY THREE, 3 TABLETS DAY FOUR, 2 TABLETS DAY FIVE, AND 1 TABLET DAY SIX 02/01/18 Regina Carson NP PAST MEDICAL HISTORY: Past Medical History: Diagnosis [...] fatigue. Negative for chills and fever. HENT: Negative for sore throat. Respiratory: Negative for cough and shortness of breath. Cardiovascular: Negative for chest pain. Gastrointestinal: Negative for abdominal pain, constipation, diarrhea and nausea. Genitourinary: Positive for dysuria. Negative for difficulty urinating, discharge, flank pain, frequency, testicular pain and urgency. Skin: Negative for rash. Neurological: Negative for light-headedness and headaches. Psychiatric/Behavioral: Negative for decreased concentration. Physical Exam Filed Vitals: 04/30/18 1703 BP: (!) 154/93 Pulse: 87 Resp: 18 Temp: 97.9 ??F (36.6 ??C) TempSrc: Temporal SpO2: 98% Weight: 127 kg (280 lb) Height: 6' 1 (1.854 m) Physical Exam Constitutional: He is oriented to person, place, and time. He appears well- developed and well-nourished. No distress. HENT: Head: Normocephalic. Eyes: Pupils are equal, round, and reactive to light. Neck: Neck supple. Cardiovascular: Normal rate, regular rhythm, normal heart sounds and intact distal pulses. No murmur heard. Pulmonary/Chest: Effort normal and breath sounds normal. Abdominal: Soft. Bowel sounds are normal. There is no tenderness. Genitourinary: Penis normal. Genitourinary Comments: Circumcised male. 1 mm red papules to the penis, no herpetic lesions noted.No chancres. Musculoskeletal: He exhibits no edema or tenderness. Neurological: He is alert and oriented to person, place, and time. Skin: Skin is warm and dry. No pallor. Psychiatric: Flat affect and anxious about his health Nursing note and vitals reviewed. Diagnostic Studies / Procedures ELECTROCARDIOGRAMS: No results found for this visit on 04/30/18. LABORATORY STUDIES: Results for orders placed or performed during the hospital encounter of 04/30/18 URINALYSIS AUTO DIP Result Value Ref Range Specimen Type URINE CLEAN CATCH COLOR YELLOW TRANSPARENCY CLEAR Specific [place] (U) 1.015 1.001 - 1.030 U PH 6.0 5.0 - 9.0 LEUKOCYTE ESTERASE NEGATIVE NEGATIVE NITRITES NEGATIVE NEGATIVE PROTEIN, URINE 100 (H) <30 MG/DL URINE GLUCOSE NEGATIVE NEGATIVE MG/DL U KETONES NEGATIVE NEGATIVE MG/DL UROBILINOGEN 1.0 (A) NEGATIVE MG/DL Urine Bilirubin NEGATIVE NEGATIVE MG/DL BLOOD TRACE (A) NEGATIVE CULTURE & SENSITIVITY INDICATED? CULTURE IS NOT INDICATED IMAGING STUDIES CT ABD+PEL WO CON Final Result by User, [id number] (04/30 4849) Exam: CT ABD+PEL WO CON Date: 04/30/2018 Comparison: 01/23/2016 Indication: Hematuria, bladder pain, 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 Technique: Noncontrast imaging. A dose lowering technique was used for this procedure, which may include, but is not limited to, dose reduction technique, automated exposure control, iterative reconstruction, ALARA (As Low As Reasonably Achievable), or Image Gently techniques. Findings: The lung bases are clear. Diffuse fatty infiltration of the liver. Cholecystectomy with no bile duct dilation. Normal noncontrast appearance of the pancreas, spleen, and adrenal glands. 2 tiny nonobstructing right kidney stones and one on the left. Left-sided stone is the largest measuring about 3-4 mm. No urinary tract obstruction. No enlarged lymph nodes or ascites. Normal appendix. Although the reported sigmoid abnormality is benign, degree of soft tissue fullness has increased. Transverse dimension on the axial images is about 3.7 cm and the approximate length of the abnormality is 8 cm. There is resultant asymmetric dilation and stool retention in the adjacent sigmoid and distal descending colon. Some mild diffuse wall thickening could represent a component of stercoral colitis or muscular wall hypertrophy secondary to the sigmoid narrowing. More proximally, colon diameter and stool volume is normal. Symmetric large fat-containing inguinal hernias. Impression: 1. Fatty liver. 2. Nonobstructing kidney stones. 3. Mild size increase in a previously described sigmoid colon abnormality. Adjacent colonic wall thickening and stool retention. Interpreted By: Memo Maciel MD, 04/30/2018 6:24 PM Order Doctor: MARCELLE BERGMAN ED Course / Medical Decision Making Advise patient that he has trace blood in his urine and will collect a noncontrast CAT scan to evaluate for kidney stones so he has not reported a history of kidney stones. He begins to complain about a doctor that he no longer has yelled at him because he went to the ERfor care once. Advised him that we needed to focus on what was bringing him in today. He is obsessed with the spots on his penis that improved after using Lamisil one time. 7:01 PM Did discuss the results of his CT scan. Will treat with Cipro and Flagyl. He continues to complain that he has burning with urination. He states he had seen a surgeon who recommended a colostomy and he has been reluctant to have that performed, had a colonoscopy last June and mass is bigger Did explain this to the patient, Commended follow-up with GI doctor surgeon and new PCP. As early as possible. . Medications - No data to display Clinical Impression Dysuria (Primary) Colitis Constipation Microscopic hematuria Colonic mass Discharge Medication List as of 04/30/2018 7:08 PM START taking these medications Details ciprofloxacin (CIPRO) 500 MG tablet Take 1 tablet (500 mg total) by mouth 2 (two) times daily for 10 days., Starting 04/30/2018, Until Wed05/10/18, Eprescribe Class: Eprescribe Pharmacy: [facility] [address] [place] [address] - [facility] [address] AT [facility] [address] (Ph #: [phone]) metroNIDAZOLE 500 MG tablet Take 1 tablet (500 mg total) by mouth 3 (three) times daily for 10 days., Starting 04/30/2018, Until Wed05/10/18, Eprescribe Class: Eprescribe Pharmacy: [facility] [address] [place] [address] - [facility] [address] AT [facility] [address] (Ph #: [phone]) Disposition: Discharge Follow-Up: Ryland Bolanos MD [address] [address] In 1 week New patient appointment or your PCP. Do follow-up with GI specialist and surgeon as discussed JANE WALLER 04/30/2018 JANE Waller 04/30/18 194 Cosigned by Jesus Negrete MD at 05/01/2018 7:14 AM CDT documented in this encounter Plan of Treatment Not on file documented as of this encounter Procedures Procedure Name Priority Date/Time Associated Diagnosis Comments CT ABD+PEL WO CON STAT 04/30/2018 6:1 0 PM CDT N.GONORRHOEAE RNA TMA STAT 04/30/2018 5:23 PM CDT C.TRACHOMATIS RNA TMA STAT 04/30/2018 5:23 PM CDT URINALYSIS AUTO DIP STAT 04/30/2018 5 :03 PM CDT documented in this encounter Results * CT ABD+PEL WO CON (04/30/2018 6:10 PM CDT) Anatomical Region Laterality Modality Abdomen Computed Tomogra phy 04/30/2018 6:24 PM CDT Narrative 04/30/2018 6:32 PM CDT Exam: CT ABD+PEL WO CON Date: 04/30/2018 Comparison: 01/23/2016 Indication: Hematuria, bladder pain, 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 Technique: Noncontrast imaging. A dose lowering technique was used for this procedure, which may include, but is not limited to, dose reduction technique, automated exposure control, iterative reconstruction, ALARA (As Low As Reasonably Achievable), or Image Gently techniques. Findings: The lung bases are clear. ??Diffuse fatty infiltration of the liver. ??Cholecystectomy with no bile duct dilation. ??Normal noncontrast appearance of the pancreas, spleen, and adrenal glands. ??2 tiny nonobstructing right kidney stones and one on the left. ??Left-sided stone is the largest measuring about 3-4 mm. ??No urinary tract obstruction. ??No enlarged lymph nodes or ascites. ??Normal appendix. ??Although the reported sigmoid abnormality is benign, degree of soft tissue fullness has increased. ??Transverse dimension on the axial images is about 3.7 cm and the approximate length of the abnormality is 8 cm. ??There is resultant asymmetric dilation and stool retention in the adjacent sigmoid and distal descending colon. ??Some mild diffuse wall thickening could represent a component of stercoral colitis or muscular wall hypertrophy secondary to the sigmoid narrowing. ??More proximally, colon diameter and stool volume is normal. ??Symmetric large fat-containing inguinal hernias. Impression: 1. ??Fatty liver. 2. ??Nonobstructing kidney stones. 3. ??Mild size increase in a previously described sigmoid colon abnormality. ??Adjacent colonic wall thickening and stool retention. Interpreted By: Memo Maciel MD, 04/30/2018 6:24 PM Order Doctor: MARCELLE BERGMAN Procedure Note Memo Maciel MD - 04/30/2018 Exam: CT ABD+PEL WO CON Date: 04/30/2018 Comparison: 01/23/2016 Indication: Hematuria, bladder pain, known benign tumor in the sigmoidcolon. Technique: Noncontrast imaging. A dose lowering technique was used for this procedure, which may include,but is not limited to, dose reduction technique, automated exposurecontrol, iterative reconstruction, ALARA (As Low As ReasonablyAchievable), or Image Gently techniques. Findings: The lung bases are clear. Diffuse fatty infiltration of theliver. Cholecystectomy with no bile duct dilation. Normal noncontrastappearance of the pancreas, spleen, and adrenal glands. 2 tinynonobstructing right kidney stones and one on the left. Left-sided stoneis the largest measuring about 3-4 mm. No urinary tract obstruction. Noenlarged lymph nodes or ascites. Normal appendix. Although the reportedsigmoid abnormality is benign, degree of soft tissue fullness hasincreased. Transverse dimension on the axial images is about 3.7 cm andthe approximate length of the abnormality is 8 cm. There is resultantasymmetric dilation and stool retention in the adjacent sigmoid and distaldescending colon. Some mild diffuse wall thickening could represent acomponent of stercoral colitis or muscular wall hypertrophy secondary tothe sigmoid narrowing. More proximally, colon diameter and stool volumeis normal. Symmetric large fat-containing inguinal hernias. Impression: 1. Fatty liver. 2. Nonobstructing kidney stones. 3. Mild size increase in a previously described sigmoid colonabnormality. Adjacent colonic wall thickening and stool retention. Interpreted By: Memo Maciel MD, 04/30/2018 6:24 PM Order Doctor: MARCELLE BERGMAN Marcelle Bergman [employer]AUTY [employer] MANAGER CT Final Result * C.TRACHOMATIS RNA TMA (04/30/2018 5:23 PM CDT) SPEC DESCRIPTION URINE VOIDED 2017 1:22 PM CDT [facility] CHLAMYDIA RNA TMA NEGATIVE NEGATIVE 05/06/2018 11:24 AM CDT [facility] Comment: This test was performed using the APTIMA Combo 2 Chlamydia trachomatis & Neisseria gonorrhoeae RNA Amplified Probe Assay which detects the presence of C. trachomatis and N. gonorrhoeae rRNA in clinical specimens. This assay was validated by [facility] and cleared by the FDA for endocervical and male urethral swabs from symptomatic and asymptomatic patients. The APTIMA Combo 2 assay it not intended for the evaluation of suspect sexual abuse or for medico-legal indication. For those patients for whom a false positive result may have adverse psycho-social impact, the CDC recommends retesting. Performed at [facility], [address] [place] [address] URINE SPECIMEN / Unknown 04/30/2018 5:23 PM CDT us Marcelle Bergman NP MICROBIOLOGY - GENERAL ORDERA BLES Final Result [facility] [address] [place] [address] [facility] [address] [place] [address], [place] * N.GONORRHOEAE RNA TMA (04/30/2018 5:23 PM CDT) SPECIMEN URINE VOIDED 05/04/2018 7:34 AM CDT [facility] N.GONORRHOEAE RNA TMA NEGATIVE NEGATIVE 05/06/2018 11:24 AM CDT [facility] Comment: This test was performed using the APTIMA Combo 2 Chlamydia trachomatis & Neisseria gonorrhoeae RNA Amplified Probe Assay which detects the presence of C. trachomatis and N. gonorrhoeae rRNA in clinical specimens. This assay was validated by [facility] and cleared by the FDA for endocervical and male urethral swabs from symptomatic and asymptomatic patients. The APTIMA Combo 2 assay it not intended for the evaluation of suspect sexual abuse or for medico-legal indication. For those patients for whom a false positive result may have adverse psycho-social impact, the CDC recommends retesting. Performed at [facility], [address] [place] [address] URINE SPECIMEN / Unknown 04/30/2018 5:23 PM CDT us Marcelle Bergman NP MICROBIOLOGY - GENERAL ORDERA BLES Final Result [facility] [facility] [address] [place] [address] [facility] [address] [place] [address], [place] [phone] * (ABNORMAL) URINALYSIS AUTO DIP (04/30/2018 5:03 PM CDT) Pathologist [facility] SPECIMEN TYPE URINE CLEAN CATCH 04/30/2018 5:04 PM CDT [facility] COLOR (U) YELLOW 04/30/2018 5:33 PM CDT [facility] TRANSPARENCY CLEAR 04/30/2018 5:33 PM CDT [facility] SPECIFIC GRAVITY (U) 1.015 1.001 - 1.030 04/30/2018 5:33 PM CDT [facility] U PH 6.0 5.0 - 9.0 04/30/2018 5:33 PM CDT [facility] LEUKOCYTES (U) NEGATIVE NEGATIVE 04/30/2018 5:33 PM CDT [facility] NITRITES NEGATIVE NEGATIVE 04/30/2018 5:33 PM CDT [facility] PROTEIN (U) 100(H) <30 MG/DL 04/30/2018 5:33 PM CDT [facility] URINE GLUCOSE NEGATIVE NEGATIVE MG/DL 04/30/2018 5:33 PM CDT [facility] KETONES MG/DL (U) NEGATIVE NEGATIVE MG/DL 04/30/2018 5:33 PM CDT [facility] UROBILINOGEN 1.0(A) NEGATIVE MG/DL 04/30/2018 5:33 PM CDT [facility] BILIRUBIN (U) NEGATIVE NEGATIVE MG/DL 04/30/2018 5:33 PM CDT [facility] BLOOD (U) TRACE(A) NEGATIVE 04/30/2018 5:33 PM CDT [facility] CULTURE & SENSITIVITY INDICATED? CULTURE IS NOT INDICATED 04/30/2018 5:33 PM CDT [facility] URINE SPECIMEN OBTAINED BY CLEAN CATCH PROCEDURE / Unknown 04/30/2018 5:03 PM CDT us Marcelle Bergman NP URINE ORDERABLES Final Result [place] [id number] [place] [address], documented in this encounter Visit Diagnoses Diagnosis Dysuria- Primary Colitis Other and unspecified noninfectious gastroenteritis and colitis Constipation Unspecified constipation Microscopic hematuria Colonic mass Other specified disorder of intestines documented in this encounter
--- OUTSIDE RECORDS SUMMARY | 2024-09-10 03:49 | XMS_ITS | Encounter Summary ---
Author Organization [facility] Address Formerly [facility]. [place], [place] [id number] [place], [place] [id number] Care Team Providers Care Insight Leader Name Role Phone Alina Russell MD Primary Care Provider Unavailable Md Generic Ivis RUSSELL Primary Care Provider Unavailable Md Generic Ivis RUSSELL Primary Care Provider Unavailable Md Generic Ivis RUSSELL Primary Care Provider Unavailable Md Generic Ivis RUSSELL Primary Care Provider Unavailable Md Generic Ivis RUSSELL Primary Care Provider Unavailable Md Generic Ivis RUSSELL Primary Care Provider Unavailable Md Generic Conversion Primary Care Provider Unavailable Md Generic Conversion Primary Care Provider Unavailable Md Generic Conversion Primary Care Provider Unavailable Encounter Details Date Type Department Care Team (Latest Contact Info) Description 02/18/2015 Abstract [facility] Social History Tobacco Use Types Packs/Day Years Used Date Smoking Tobacco: Never Assessed Sex and Gender Information Value Date Recorded Sex Assigned at Not on file Legal Sex Male 10:39 PM CDT Gender Identity Not on file Sexual Orientation Not on file documented as of this encounter Progress Notes * Alina Langston Md, MD - 02/18/2015 9:17 AM CDT Note Note: Pt is calling [facility] to schedule new patient appt. States is self pay and needing diabetes care. Because he has been dismissed from [facility] we will not be able to see pt here. Tried calling pt back and was unable to leave a voicemail. Signatures Electronically signed by : Porsche Krause, ; Feb 18 2015 9:25AM ADMINISTRATIVE SUPERVISOR (Author) documented in this encounter Plan of Treatment Not on file documented as of this encounter Visit Diagnoses Not on filedocumented in this encounter Care Teams Insight Leader Relationship Specialty Start Date End Date Alina Russell, PCP - General 02/20/17 Md Generic Conversion, [...] Md Generic Conversion, PCP - General 02/14/1509/09 documented as of this encounter
--- OUTSIDE RECORDS SUMMARY | 2024-09-10 03:49 | XMS_ITS | Encounter Summary ---
Author Organization [facility] Address [address] [place] [address]. [place] [address] Care Team Providers Care Floor Tiling Professional Name Role Phone Alina Christensen MD Primary Care Provider Unavailable Alina Christensen MD Primary Care Provider Unavailable Alina Christensen MD Primary Care Provider Unavailable Encounter Details Date Type Department Care Team (Latest Contact Info) Description 07/28/2016 Abstract [facility] Social History Tobacco [...] on filedocumented in this encounter Care Teams Floor Tiling Professional Relationship Specialty Start Date End Date Alina Christensen MD PCP - General 02/20/17 Alina Christensen MD PCP - General 10/11/16 7 Alina Christensen MD PCP - General 07/19/16 documented as of this encounter
--- OUTSIDE RECORDS SUMMARY | 2024-09-10 03:49 | XMS_ITS | Encounter Summary ---
Author Organization [facility] Address [address] [place] [address]. [place], [place] [id number] [place], [place] [phone] Care Team Providers Care Ammonia Refrigeration Worker Name Role Phone Md Generic Conversion Primary [...] Care Team (Late st Contact Info) Description 07/30/2014 Emergency [facility] [place] [address] Zachary Jaime MD Social History Tobacco Use Types Packs/Day Years Used Date Smoking Tobacco: Never Assessed Sex and Gender Information Value Date Recorded Sex Assigned at Not on file Legal Sex Male 10:39 PM CDT Gender Identity Not on file Sexual Orientation Not on file documented as of this encounter Plan of Treatment Not on file documented as of this encounter Visit Diagnoses Diagnosis Abdominal pain Abdominal pain, unspecified site documented in this encounter Care Teams Ammonia Refrigeration Worker Relationship Specialty Start Date End Date Alina [...] Generic Conversion, MD PCP - General 07/30/1409/09 documented as of this encounter
--- OUTSIDE RECORDS SUMMARY | 2024-09-10 03:49 | XMS_ITS | Encounter Summary ---
Author Organization [facility] Address [address] [place] [address]. [place] [id number] [place], [place] [phone] Care Team Providers Care Medical Affairs Leader Name Role Phone Alina Christensen MD Primary Care Provider Unavailable Alina Christensen MD Primary Care Provider Unavailable Alina Christensen MD Primary Care Provider Unavailable Encounter Details Date Type Department Care Team (Latest Contact Info) Description 07/27/2016 Abstract [facility] Alina Christensen MD Social History Tobacco Use Types Packs/Day Years Used Date Smoking Tobacco: Never Assessed Sex and Gender Information Value Date Recorded Sex Assigned at Not on file Legal Sex Male 10:39 PM CDT Gender Identity Not on file Sexual Orientation Not on file documented as of this encounter Progress Notes * Generic Ivis Christensen MD - 07/27/2016 4:41 PM CST Message Recorded as Task Date: 07/27/2016 01:06 PM, Created By: Yuridia Thornton Task Name: Medical Complaint Callback Assigned To: [facility] Nurse Team Regarding Patient: Carlos Mcgee, Status: Active Comment: Yuridia Thornton - 27 Jul 2016 1:06 PM TASK CREATED Caller: Self; Medical Complaint; pt states that went to the ER for breathing they Dx hism with bronchitis, states he is still takingDulera and emergency inhaler, feels like the ER was guessing, concerned about his breathing issues should he stay onthe amoxicilin Yuridia Thornton - 27 Jul 2016 1:20 PM TASK EDITED at the end of the conversation, pt stated we are legally supposed to treat him for the next 30days, and he would hate to get anything legal involved Regina Lopez - 27 Jul 2016 1:27 PM TASK REPLIED TO: [facility] he was dx with bronchitis here and is suppose to be on prednisone that I prescribed. Continue medications as previously prescribed. If his symptoms worsen, he needs to return to the ER Message: patient was notified that for any breathing issues or low oxygen levels he must return to the ER as they are better equipped for these emergency situations, also states he never said anything to lead front desk agent about legal issues -sjs Signatures Electronically signed by : Angi Carbajal MA; Jul 27 2016 4:45PM SUPERINTENDENT DISTRIBUTION (Author) * RAINA Maravilla - 07/27/2016 4:36 PM CST This legacy All[employer] note was not finalized in Allscripts. It had a status of Unsigned on 06/10/2018 Recorded as Task Date: 07/27/2016 01:06 PM, Created By: Yuridia Thornton Task Name: Medical Complaint Callback Assigned To: [facility] Nurse Team Regarding Patient: Carlos Mcgee, Status: Active Comment: Yuridia Thornton - 27 Jul 2016 1:06 PM TASK CREATED Caller: Self; Medical Complaint; pt states that went to the ER for breathing they Dx hism with bronchitis, states he is still takingDulera and emergency inhaler, feels like the ER was guessing, concerned about his breathing issues should he stay onthe amoxicilin Yuridia Thornton - 27 Jul 2016 1:20 PM TASK EDITED at the end of the conversation, pt stated we are legally supposed to treat him for the next 30days, and he would hate to get anything legal involved Regina Lopez - 27 Jul 2016 1:27 PM TASK REPLIED TO: Previously Assigned To [facility] Nurse Team he was dx with bronchitis here and is suppose to be on prednisone that I prescribed. Continue medications as previously prescribed. If his symptoms worsen, he needs to return to the ER documented in this encounter Plan of Treatment Not on file documented as of this encounter Visit Diagnoses Not on filedocumented in this encounter Care Teams Medical Affairs Leader Relationship Specialty Start Date End Date Md Generic ConversionMD PCP - General 02/20/17 Md Generic Conversion, PCP - General 10/11/16 7 Md Generic Conversion, PCP - General 07/19/16 documented as of this encounter
--- OUTSIDE RECORDS SUMMARY | 2024-09-10 03:49 | XMS_ITS | Encounter Summary ---
Author Organization [facility] Address [facility]. [place], [place] [id number] [place], [place] [phone] Care Team Providers Care Palliative Care Specialist Name Role Phone Md Generic Conversion [...] Department Care Team (Latest Contact Info) Description 04/02/2015 Abstract [facility] Social History Tobacco Use [...] on filedocumented in this encounter Care Teams Palliative Care Specialist Relationship Specialty Start Date End Date Md Generic Conversion, PCP - General 02/20/17 Md Generic Conversion, PCP - General 10/11/16 7 Md Generic Conversion, PCP - General 07/19/16 Md, Generic Conversion, PCP - General 05/06/16 Md Generic Conversion, MD PCP - General 01/23/16 Md Generic Conversion, MD PCP - General 11/27/15 Md Generic Conversion, PCP - General 11/13/15 Md Generic Conversion, PCP - General 09/20/15 6 Md Generic Conversion, MD PCP - General 09/10/15 6 Md, Generic Conversion, MD PCP - General 02/14/1509/09 documented as of this encounter
--- OUTSIDE RECORDS SUMMARY | 2024-09-10 03:49 | XMS_ITS | Encounter Summary ---
Author Organization [facility] Address [address] [place] [address]. [place], [place] [phone] [place] [address] Care Team Providers Care Edger Automatic Name Role Phone Md Generic Conversion [...] Care Team (Late st Contact Info) Description 11/13/2015 [facility] [address] [place], [place] [phone] Avelina Salcedo, AFFILIATE MARKETING COORDINATOR [address] [facility] [address] [place], [place] [phone] Social History Tobacco Use Types Packs/Day Years Used Date Smoking Tobacco: Never Assessed Sex and Gender Information Value Date Recorded Sex Assigned at Not on file Legal Sex Male 10:39 PM CDT Gender Identity Not on file Sexual Orientation Not on file documented as of this encounter Plan of Treatment Not on file documented as of this encounter Visit Diagnoses Diagnosis Cough documented in this encounter Care Teams Edger Automatic Relationship Specialty Start Date End Date Md Generic ConversionMD PCP - General 02/20/17 Md Generic ConversionMD PCP - General 10/11/16 7 Md Generic ConversionMD PCP - General 07/19/16 Md Generic ConversionMD PCP - General 05/06/16 Md Generic ConversionMD PCP - General 01/23/16 Md Generic ConversionMD PCP - General 11/27/15 Md, Generic Conversion, PCP - General 11/13/15 documented as of this encounter
--- OUTSIDE RECORDS SUMMARY | 2024-09-10 03:49 | XMS_ITS | Encounter Summary ---
Author Organization [facility] Address [address] [place] [address]. [place], [place] [phone] [place] [address] Care Team Providers Care Business Intelligence Reporting Analyst Name Role Phone Md Generic Conversion Primary [...] 09/20/[address] [facility] [address] [place] [address] Germán Dominguez, APNP [address] [facility] [address] [place] [address] Social History Tobacco Use Types Packs/Day Years [...] (chronic) documented in this encounter Care Teams Business Intelligence Reporting Analyst Relationship Specialty Start Date End Date Md Generic MD Ivis PCP - General 02/20/17 Md Generic ConversionMD PCP - General 10/11/16 7 Md Generic ConversionMD PCP - General 07/19/16 Md Generic ConversionMD PCP - General 05/06/16 Md Generic ConversionMD PCP - General 01/23/16 Md, Generic Conversion, MD PCP - General 11/27/15 , Generic Conversion, PCP - General 11/13/15 , Generic Conversion, PCP - General 09/20/15 6 documented as of this encounter
--- OUTSIDE RECORDS SUMMARY | 2024-09-10 03:49 | XMS_ITS | Encounter Summary ---
Author Organization [facility] Address [address] [place] [address]. [place], [place] [phone] [place] [address] Care Team Providers Care Rubber Cutter And Shape Carver Name Role Phone Unavailable Primary Care Provider Unavailabl e Reason for Visit * Reason Onset Date Comments Lab Results 05/01/2018 Encounter Details Date Type Department Care Team (Late st Contact Info) Description 05/01/[address] [facility] [address] Emergency, Nurse, corner cutter Results Social History Tobacco Use Types Packs/Day Years [...]
--- OUTSIDE RECORDS SUMMARY | 2024-09-10 03:49 | XMS_ITS | Encounter Summary ---
Author Organization [facility] Address [address] [place] [address]. [place], [place] [id number] [place], [place] [id number] Care Team Providers Care Hyperion Administrator Name Role Phone Md Generic Conversion [...] Care Team (Late st Contact Info) Description 04/20/2014 Abstract [facility] - [place] [address], [address] [place] [address] Balta Costello MD [address] [address] [place] [id number] Social History Tobacco Use Types Packs/Day Years Used Date Smoking Tobacco: Never Assessed Sex and Gender Information Value Date Recorded Sex Assigned at Not on file Legal Sex Male 10:39 PM CDT Gender Identity Not on file Sexual Orientation Not on file documented as of this encounter Last Filed Vital Signs Vital Sign Reading Time Taken Comments Blood Pressure 140/86 04/20/2014 9:57 AM CDT Pulse 80 04/20/2014 9:57 AM CDT Temperature - - Respiratory Rate - - Oxygen Saturation - - Inhaled Oxygen Concentration - - Weight 134.7 kg (297 lb) 04/20/2014 9:57 AM CDT Height 188 cm (6' 2 ) 04/20/2014 9:57 AM CDT Body Mass Index 38.13 04/20/2014 9:57 AM CDT documented in this encounter Progress Notes * Generic Conversion MD Fermin - 04/20/2014 10:15 AM CDT Reason For Visit Chronic Recheck Visit Chief Complaint Pt is here for 1 month follow up. Is having some left sided chest pain since early this morning. History of Present Illness Patient comes in for his last visit to get refills. 1. Diabetes: patient reports he has not tolerated the metformin (chest pains) and Januvia (muscle aches). he would like to find a medication that he can tolerate and options were discussed. he reports recent blood sugars are normal. checking blood sugars 3 times a day which he reports is better forhim (less frequent). he reports 130's in the Am, and 170's at night. He has found a new PCP in [place]. 2. HTN: a little high today but he is in abd pain from his reported diverticulitis. he had reportedbeing seen by ER again several weeks ago and labs were normal. needs refill of medications. has chest pain. would like an EKG. 3. Anxiety: on celexa 40 mg daily and wellbutrin 75 mg twice a day and doing poor to fair. he has appointment with new counselor soon (tomorrow). he is not feeling well though. he cannot find a psychiatrist yet. He states he has cut out a lot of family and friends out of his life. His family is nottalking to them anymore and reports he does not have friends anymore. he states equilibirum is off and feels dizzy. 4. acid reflux: needs omeprazole refills. 5. Abdominal pain: intermittent and flaring up. labs as noted above were normal. Review of Systems See HPI for pertinent positives. Constitutional: feeling poorly and feeling tired The patient presents with complaints of headache (sinus pressure RUSSO). Cardiovascular: chest pain. The patient presents with complaints of confusion (reports feeling confused all the time ). Active Problems 1. Abdominal pain (789.00) (R10.9) [...] Paresthesias (782.0) (R20.2) 18. Sinusitis (473.9) (J32.9) Social History ?? No alcohol use ?? Non-smoker (V49.89) (Z78.9) Current Meds 1. ALPRAZolam 2 MG Oral Tablet; TAKE 1 TABLET 3 TIMES DAILY NEEDED and 1/2 tab at night; Therapy: 15Jan2014 to (Last Rx:[id number]) Ordered 2. Amitriptyline HCl - 25 MG Oral Tablet; TAKE 1 TABLET AT BEDTIME; Therapy: 08Feb2014 to (Evaluate:10Mar2014); Last Rx:[id number] Ordered 3. BuPROPion HCl - 100 MG Oral Tablet; TAKE 1 TABLET 3 times daily; Therapy: 05Mar2014 to (Evaluate:[id number]) Requested for: 05Mar2014; Last Rx:[id number] Ordered 4. Citalopram Hydrobromide 40 MG Oral Tablet; TAKE 1 TABLET BY MOUTH EVERY DAY; Therapy: 32Tum4331 to (Evaluate:[id number]); Last Rx:[id number] Ordered 5. Claritin 10 MG Oral Capsule; Therapy: (Recorded:[id number]) to Recorded 6. Fluticasone Propionate 50 MCG/ACT Nasal Suspension (Flonase); USE 1 TO 2 SPRAYS IN EACH NOSTRIL ONCE DAILY Requested for: 05Mar2014; Last Rx:05Mar2014 Ordered 7. Hyoscyamine Sulfate 0.125 MG Oral Tablet; TAKE 1 TABLET 3-4 TIMES DAILY NEEDED; Therapy: 15Jan2014 to (Evaluate:15Apr2014); Last Rx:15Jan2014 Ordered 8. Januvia 100 MG Oral Tablet; TAKE 1 TABLET ONCE DAILY; Therapy: 27Feb2014 to (Evaluate:27Jun2014); Last Rx:27Feb2014 Ordered 9. Omeprazole 40 MG Oral Capsule Delayed Release (PriLOSEC); TAKE 1 CAPSULE Daily Requested for: 23Mar2014; Last Rx:[id number] Ordered 10. Promethazine HCl - 25 MG Oral Tablet; TAKE 1 TABLET 3 TIMES DAILY NEEDED; Last Rx:05Mar2014 Ordered 11. Tylenol TABS; Therapy: (Recorded:04Jan2014) to Recorded Allergies 1. Bactrim DS TABS 2. Cephalexin Monohydrate TABS 3. Doxycycline Monohydrate CAPS 4. Levaquin TABS 5. Percocet TABS 6. Sulfa Drugs 7. Contrast Dye Vitals Recorded by : Landy Keyes at 20Apr2014 09:57AM Heart Rate 80 Respiration 18 Systolic 140 Diastolic 86 Height 6 ft 2 in Weight 297 lb BMI Calculated 38.13 BSA Calculated 2.57 Physical Exam Constitutional General appearance: No acute distress, well appearing and well nourished. Head and Face Head and face: Normal. Palpation of the face and sinuses: Abnormal. Examination of the Sinuses: right frontal tenderness and left frontal tenderness. Ears, Nose, Mouth, and Throat External inspection of ears and nose: Normal. Otoscopic examination: Abnormal. Mild trace erythema to the right TM. otherwise normal. Nasal mucosa, septum, and turbinates: Abnormal. Right nasal congestion and left nasal passage is narrowed. Oropharynx: Abnormal. Mild erythema. Pulmonary Respiratory effort: No increased work of breathing or signs of respiratory distress. Auscultation of lungs: Clear to auscultation. Cardiovascular Auscultation of heart: Normal rate and rhythm, normal S1 and S2, no murmurs. No carotid bruits. Abdomen Abdomen: Abnormal. LLQ ttp without rigid guarding. some discomfort to the LUQ as well. Neurologic Cranial nerves: Cranial nerves 2-12 intact. Coordination: Normal finger to nose and heel to zabala. Psychiatric Orientation to person, place and time: Normal. Mood and affect: Abnormal. Appears fatigued. casually dressed but appropriate. Results/Data EKG: NSR without significant ST changes (no acute st/t wave abnormalities). mild st depression in III. Assessment 1. Hypertension (401.9) (I10) 2. Anxiety (300.00) (F41.9) 3. GERD (gastroesophageal reflux disease) (530.81) (K21.9) 4. Diabetes mellitus (250.00) (E11.9) 5. Sinusitis (473.9) (J32.9) Plan Abdominal pain 1. Renew: Promethazine HCl - 25 MG Oral Tablet; TAKE 1 TABLET 3 TIMES DAILY NEEDED Rx By: Balta Costello; Dispense: 30 Days ; #:90 Tablet; Refill: 0; For: Abdominal pain; LAURA = N; PrintRx Anxiety 2. Renew: ALPRAZolam 2 MG Oral Tablet; TAKE 1 TABLET 3 TIMES DAILY NEEDED and 1/2 tab at night Rx By: Balta Costello; Dispense: 0 Days ; #:135 Tablet; Refill: 0; For: Anxiety; LAURA = N; Print Rx 3. Renew: BuPROPion HCl - 100 MG Oral Tablet; TAKE 1 TABLET 3 times daily Rx By: Balta Costello; Dispense: 30 Days ; #:90 Tablet; Refill: 0; For: Anxiety; LAURA = N; Print Rx 4. Renew: Citalopram Hydrobromide 40 MG Oral Tablet; TAKE 1 TABLET BY MOUTH EVERY DAY Rx By: Balta Costello; Dispense: 30 Days ; #:30 Tablet; Refill: 0; For: Anxiety; LAURA = N; Print Rx; Msg to Pharmacy: 1/2 tab daily for 2-3 weeks. Anxiety, Paresthesias 5. Stop: Amitriptyline HCl - 25 MG Oral Tablet Rx By: Balta Costello; Dispense: 30 Days ; #:30 Tablet; Refill: 0; For: Anxiety, Paresthesias; LAURA = N; Print Rx Diabetes mellitus 6. Stop: Januvia 100 MG Oral Tablet Rx By: Hema Durbin; Dispense: 30 Days ; #:30 Tablet; Refill: 3; For: Diabetes mellitus; LAURA = N; Print Rx; Last Updated By: Balta Costello; 04/20/2014 10:50:19 AM 7. Start: Farxiga 5 MG Oral Tablet; 1 tab daily Rx By: Balta Costello; Dispense: 28 Days ; #:28 Tablet; Refill: 0; For: Diabetes mellitus; LAURA = N; Record GERD (gastroesophageal reflux disease) 8. Renew: Omeprazole 40 MG Oral Capsule Delayed Release (PriLOSEC 40 MG Oral Capsule Delayed Release); TAKE 1 CAPSULE Daily Rx By: Balta Costello; Dispense: 0 Days ; #:30 Capsule Delayed Release; Refill: 0; For: GERD (gastroesophageal reflux disease); LAURA = N; Print Rx Hypertension 9. Start: Lisinopril 10 MG Oral Tablet; Take 1 tablet daily Rx By: Balta Costello; Dispense: 30 Days ; #:30 Tablet; Refill: 0; For: Hypertension; LAURA = N; Print Rx Sinusitis 10. Start: Amoxicillin-Pot Clavulanate 875-125 MG Oral Tablet; TAKE 1 TABLET EVERY 12 HOURS DAILY Rx By: Balta Costello; Dispense: 14 Days ; #:28 Tablet; Refill: 0; For: Sinusitis; LAURA = N; Print Rx Discussion/Summary Patient comes in for his last visit to get refills. 1. Diabetes: Gave patient trial of farxiga and also sample of glumetza to try. he has not toleratedmetformin (chest pain) or januvia (muscle aches). discussed risk of farxiga (increase yeast around penis risk, and increase urinary sugars). discussed that I was not keen on using sulfonylureas givenhis poor intermittent dietary habits (risk of hypoglycemia). follow up with new PCP. 2. HTN: a little high today but he is in abd pain from his reported diverticulitis. EKG fairly acceptable. refilled medication. Chest pain possible anxiety associated. 3. Anxiety: frequent symptoms of headache, malaise. he has significant anxiety. has been on xanax for many many years and has reportedly tried ativan, klonopin without improvement. on celexa 40 mg daily and now wellbutrin IR 75 mg BID with previous plans to increase to TID. in the recent past he reported improvement in anxiety but now his anxiety has been higher lately per report. refilled meds. he has initial eval with psychologist and is looking for psychiatry. 4. acid reflux: needs omeprazole refills. 5. Abdominal pain: augmentin given for both sinusitis and reported diverticulitis for which work upwas negative per patient report from the hospital in [place] (no records sent or available). 6. Sinusitis: chronic sinusitis for which he reportedly has tried flonase and other preparations, and claritin without effect. reportedly seen by ENT and told he may need surgery but has not done so yet.trial of augmentin again as this can help GI and sinus related issues. Follow up as above with new PCP and psychologist. Signatures Electronically signed by : Balta Costello M.D.; Apr 20 2014 4:59PM WAITER/[employer]ESS [employer] (Author) documented in this encounter Plan of Treatment Not on file documented as of this encounter Visit Diagnoses Not on filedocumented in this encounter Care Teams Hyperion Administrator Relationship Specialty Start Date End Date Md Generic Conversion, PCP - General 02/20/17 Md Generic Conversion, PCP - General 10/11/16 7 Md Generic Conversion, PCP - General 07/19/16 Md Generic Conversion, PCP - General 05/06/16 Md Generic Conversion, PCP - General 01/23/16 Md, Generic Conversion, PCP - General 11/27/15 Md Generic Conversion, PCP - General 11/13/15 Md Generic Conversion, PCP - General 09/20/15 6 Md, Generic Conversion, PCP - General 09/10/15 6 Md Generic Conversion, PCP - General 02/14/1509/09 Md Generic Conversion, PCP - General 12/11/14 5 Md Generic Conversion, PCP - General 09/10/14 Md, Generic Conversion, MD PCP - General 07/30/1409/09 Md Generic Conversion, MD PCP - General 06/09/1407/29 Balta Costello MD PCP - General 02/02/14 06/08/14 documented as of this encounter
--- OUTSIDE RECORDS SUMMARY | 2024-09-10 03:49 | XMS_ITS | Encounter Summary ---
Author Organization [facility] Address [address] [place] [address]. [place] [id number] [place] [address] Care Team Providers Care Prep Person Name Role Phone Alina Christensen MD Primary Care Provider Unavailable Encounter Details Date Type Department Care Team (Late st Contact Info) Description 07/17/2017 [place] [address] Alina Christensen MD Social History Tobacco Use [...] on filedocumented in this encounter Care Teams Prep Person Relationship Specialty Start Date End Date Alina Christensen MD PCP - General 02/20/17 documented as of this encounter
--- OUTSIDE RECORDS SUMMARY | 2024-09-10 03:49 | XMS_ITS | Encounter Summary ---
Author Organization [facility] Address [address] [place] [address]. [place] [address] [place] [address] Care Team Providers Care Turbine Assembler Name Role Phone Md Generic Conversion Primary Care Provider Unavailable Md Generic Conversion Primary Care Provider Unavailable Md Generic Conversion Primary Care Provider Unavailable Encounter Details Date Type Department Care Team (Late st Contact Info) Description 07/19/2016 Emergency [facility] [place] [address] Prosper Tellez MD [address] [place] [address] [place], [place] [id number] Social History Tobacco Use Types Packs/Day Years [...] Associated Diagnosis Comments CULTURE STREP A Routine 07/19/2016 2:36 PM [employer] DYEING RANGE TENDER RAPID STREP A STAT 07/19/2016 2:36 PM [employer] TENDER INFLUENZA A & B STAT 07/19/2016 2:36 PM [employer] RANGE TENDER PARTIAL THROMBOPLASTIN TIME,PTT STAT 07/19/2016 12:30 PM [employer] TENDER PROTHROMBIN TIME, VENOUS STAT 07/19/2016 12:30 PM [employer] TENDER COMPREHENSIVE METABOLIC PANEL STAT 07/19/2016 12:30 PM [employer] TENDER CBC W/DIFF AUTOMATED STAT 07/19/2016 12:30 PM [employer] D[employer] RANGE TENDER documented in this encounter Results * CULTURE STREP A (07/19/2016 2:36 PM [employer] D[employer] RANGE TENDER) SPEC DESCRIPTION THROAT 07/19/2016 4:09 PM [employer]ING RANGE TENDER [facility] SPECIAL REQUESTS NO SPECIAL REQUEST 07/19/2016 4:09 PM [employer] RANGE TENDER [facility] CULTURE RESULT NO STREPTOCOCCUS PYOGENES (GROUP A) ISOLATED 07/21/2016 12:05 PM [employer] RANGE TENDER [facility] THROAT SWAB / Unknown 07/19/2016 2:36 PM [employer] RANGE TENDER 07/19/2016 4:08 PM [employer] RANGE TENDER us Generic Conversion Md [facility]SELL MICROBIOLOGY - GENERAL ORDERABLES Final Result Performing Organization Address [facility] Co de Phone Number [facility] [address] [place] [address], * INFLUENZA A & B (07/19/2016 2:36 PM CLOTH DYEING RANGE TENDER) SPECIMEN TYPE NASOPHARYNGEAL SWAB 07/19/2016 3:40 PM [employer] DYEING RANGE TENDER [facility] INFLUENZA A NEGATIVE NEGATIVE 07/19/2016 4:18 PM [employer] RANGE TENDER [facility] INFLUENZA B NEGATIVE NEGATIVE 07/19/2016 4:18 PM [employer] DYEING RANGE TENDER [facility] Comment: Interpretation: Negative for Influenza A and [...] testing with RT-PCR requires a separate order. 07/19/2016 2:36 PM CL[employer] DYEING RANGE TENDER 07/19/2016 3:39 PM [employer] DYE[employer] RANGE TENDER us Generic Conversion Md RUSSELL MICROBIOLOGY - GENERAL ORDERABLES Final Result Performing Organization Address City/[facility]/ZIP Co de Phone Number [facility] [address] [place] [address], * RAPID STREP A (07/19/2016 2:36 PM CLOTH DYEING RANGE TENDER) SPECIMEN TYPE THROAT 07/19/2016 3:31 PM [employer] D[employer]ING RANGE TENDER [facility] RAPID STREP TEST NEGATIVE NEGATIVE 07/19/2016 4:03 PM [employer] RANGE TENDER [facility] THROAT SWAB / Unknown 07/19/2016 2:36 PM [employer] RANGE TENDER 07/19/2016 3:39 PM [employer] RANGE TENDER us Generic Conversion Md RUSSELL MICROBIOLOGY - GENERAL ORDERABLES Final Result Performing Organization Address [facility] de Phone Number [facility] [address] [place] [address], * PROTIME/INR, VENOUS (07/19/2016 12:30 PM CL[employer] DYEING RANGE TENDER) PROTIME 11.9 9.6 - 12.2 SEC 07/19/2016 1:48 PM [employer] RANGE TENDER [facility] INR 1.07 07/19/2016 1:48 PM [employer] RANGE TENDER [facility] Comment: Recommended INR Therapeutic Goals: ??2.0-3.0 Routine Therapy ??2.5-3.5 Mechanical Prosthetic Valves (High Risk) ??3.0-4.0 Acute VA (to prevent Systemic Embolism) The INR is used only for patients on stable oral anticoagulant therapy. It makes no significant contribution to the diagnosis or treatment of patients whose Protime is prolonged for other reasons. 07/19/2016 12:3 0 PM [employer] RANGE TENDER 07/19/2016 1:32 PM [employer] RANGE TENDER us Generic Conversion Md [facility] Final R esult Performing Organization Address [facility] Co de Phone Number [facility] [address] [place] [address], [place] [phone] * (ABNORMAL) COMPREHENSIVE METABOLIC PANEL (07/19/2016 12:30 PM [employer] DYEING RANGE TENDER) [facility] GLUCOSE 92 70 - 99 mg/dL 07/19/2016 1:54 PM [facility] BUN 9 8 - 23 mg/dL 07/19/2016 1:54 PM [facility] CREATININE S/P/B 0.84 0.70 - 1.20 mg/dL 07/19/2016 1:54 PM [facility] SODIUM S/P/B 139 136 - 145 mmol/L 07/19/2016 1:54 PM [facility] POTASSIUM S/P/B 3.5 3.5 - 5.1 mmol/L 07/19/2016 1:54 PM [facility] CHLORIDE S/P/B 102 98 - 107 mmol/L 07/19/2016 1:54 PM [facility] CO2 29 22 - 29 mmol/L 07/19/2016 1:54 PM [facility] BILIRUBIN TOTAL S/P/B 0.7 0.2 - 1.2 mg/dL 07/19/2016 1:54 PM [facility] CALCIUM S/P/B 9.4 8.6 - 10.2 mg/dL 07/19/2016 1:54 PM [facility] ALKALINE PHOSPHATASE S/P/B 74 40 - 129 U/L 07/19/2016 1:54 PM [facility] AST 37 0 - 40 U/L 07/19/2016 1:54 PM [facility] TOTAL PROTEIN S/P/B 7.9 6.4 - 8.3 g/dL 07/19/2016 1:54 PM [facility] ALBUMIN S/P/B 4.3 3.5 - 5.2 g/dL 07/19/2016 1:54 PM [facility] ALT 42(H) 0 - 41 U/L 07/19/2016 1:54 PM [facility] GLOBULIN 3.6 2.3 - 3.6 g/dL 07/19/2016 1:54 PM [facility] A/G RATIO 1.2 1.0 - 2.0 07/19/2016 1:54 PM [facility] ANION GAP 12 8 - 20 07/19/2016 1:54 PM [facility] EGFR NON-AFR. AMER. >60 >60 mL/min/1.7 3m'2 07/19/2016 1:54 PM [facility] EGFR AFR. AMER. >60 >60 mL/min/1.7 3m'2 07/19/2016 1:54 PM [facility] Comment: NOTE: eGFR is not calculated for patients <18 years of age. This is an estimated GFR (CKD EPI) and should not be used for calculating drug doses. 07/19/2016 12:3 0 PM [employer] RANGE TENDER 07/19/2016 1:32 PM [employer] R[employer] TENDER us Generic Conversion Md [facility] Final R esult [facility] [address] [place] [address], * (ABNORMAL) CBC W/DIFF AUTOMATED (07/19/2016 12:30 PM [employer] D[employer] RANGE TENDER) WBC 4.9 4.8 - 10.8 X10'3/uL 07/19/2016 1:51 PM [facility] RBC 5.74 4.70 - 6.10 X10'6/uL 07/19/2016 1:51 PM [facility] HGB 11.5(L) 14.0 - 18.0 g/dL 07/19/2016 1:51 PM [facility] HCT 39.4(L) 43.0 - 54.0 % 07/19/2016 1:51 PM [facility] MCV 68.6(L) 80.0 - 94.0 fL 07/19/2016 1:51 PM [facility] MCH 20.0(L) 27.0 - 31.0 pg 07/19/2016 1:51 PM [facility] MCHC 29.2(L) 32.0 - 36.0 g/dL 07/19/2016 1:51 PM [facility] RDW 18.0(H) 11.5 - 14.5 % 07/19/2016 1:51 PM [facility] PLT 180 130 - 400 X10'3/uL 07/19/2016 1:51 PM [facility] MPV 8.7(L) 9.3 - 12.2 fL 07/19/2016 1:51 PM [facility] BASOPHILS 0.6 0.0 - 1.0 % 07/19/2016 2:03 PM [facility] EOSINOPHILS 2.0 1.0 - 3.0 % 07/19/2016 2:03 PM [facility] NEUTROPHILS % 61.0 43.0 - 65.0 % 07/19/2016 2:03 PM [facility] LYMPHOCYTES % 29.1 20.0 - 46.0 % 07/19/2016 2:03 PM [facility] MONOCYTES % 7.1 5.0 - 12.0 % 07/19/2016 2:03 PM [facility] IMMATURE GRANS % 0.2 0.0 - 1.0 % 07/19/2016 2:03 PM [facility] DIFFERENTIAL TYPE AUTOMATED 07/19/2016 2:03 PM [facility] RBC MORPHOLOGY SLIDE REVIEWED 2015 2:03 PM [facility] Comment: 3+ MICROCYTES 1+ HYPOCHROMASIA 2+ ANISOCYTOSIS 1+ OVALOCYTES PATHOLOGIST COMMENT PATHOLOGIST REVIEW ADDED TO REPORT 07/20/2016 5:59 PM [facility] Comment: 07/20/2016. HYPOCHROMIC MICROCYTIC ANEMIA. ??CHANGES MAY BE SEEN IN IRON DEFICIENCY AND/OR THALASSEMIA. WBC'S AND PLATELETS UNREMARKABLE. ??AGREE WITH WBC DIFFERENTIAL. REVIEWED BY BERTO VICTORIA M.D., PATHOLOGIST. 07/19/2016 12:3 0 PM [employer] RANGE TENDER 07/19/2016 1:32 PM [employer] RANGE TENDER us Generic Conversion Md [facility] Edited Result - Final Performing Organization Address [facility] Co de Phone Number [facility] [address] [place] [address], [place] [phone] * PARTIAL THROMBOPLASTIN TIME,PTT (07/19/2016 12:30 PM CLOTH DYEING RANGE TENDER) PTT 36.2 25.5 - 37.6 SEC 07/19/2016 1:48 PM [employer]ING RANGE TENDER [facility] PLASMA SPECIMEN / Unknown 07/19/2016 12:30 PM [employer] RANGE TENDER 07/19/2016 1:32 PM [employer] D[employer]ING RANGE TENDER us Generic Conversion Md [facility] Final R esult Performing Organization Address [facility]/ZIP Co de Phone Number [facility] [address] [place] [address], [place] [phone] documented in this encounter Visit Diagnoses Diagnosis Tension-type headache, not intractable Tension type headache, unspecified documented in this encounter Care Teams Turbine Assembler Relationship Specialty Start Date End Date Alina Russell MD PCP - General 02/20/17 Alina Russell MD PCP - General 10/11/16 7 Alina Russell MD PCP - General 07/19/16 documented as of this encounter
--- OUTSIDE RECORDS SUMMARY | 2024-09-10 03:49 | XMS_ITS | Encounter Summary ---
Author Organization [facility] Address [address] [place] [address]. [place], [place] [id number] [place] [address] Care Team Providers Care Teletype Or Varitype Keyboard Operator Name Role Phone Alina Russell MD Primary Care Provider Unavailable Encounter Details Date Type Department Care Team (Late st Contact Info) Description 02/20/[address] [facility] [place] [address] Zachary Jaime MD Social History Tobacco Use [...] Comments URINALYSIS WI REFLEX TO CULTURE STAT 02/20/2017 6:37 PM CDT PARTIAL THROMBOPLASTIN TIME,PTT STAT 02/20/2017 6:37 PM CDT PROTHROMBIN TIME, VENOUS STAT 02/20/2017 6:37 PM CDT COMPREHENSIVE METABOLIC PANEL STAT 02/20/2017 6:37 PM CDT CKMB(MB FRACTION ONLY) STAT 7 6:37 PM CDT CBC W/DIFF AUTOMATED STAT 02/20/2017 6:37 PM CDT TROPONIN, QUANT STAT 02/20/2017 6:37 PM CDT CK (CPK) STAT 02/20/2017 6:37 PM CDT POCT GLUCOSE - WEIR DOCKED DEVICE Routine 02/20/2017 6:29 PM CDT documented in this encounter Results * CK (CPK) (02/20/2017 6:37 PM CDT) CPK 157 39 - 308 U/L 02/20/2017 8:15 PM CDT [facility] SERUM OR PLASMA SPECIMEN / Unknown 02/20/2017 6:37 PM CDT 02/20/2017 8:01 PM CDT us Generic Conversion Md [facility] Final R corrine Performing Organization Address City/[facility]/ZIP Co de Phone Number [facility] [address] [place] [address], [place] [phone] * TROPONIN, QUANT (02/20/2017 6:37 PM CDT) TROPONIN I <0.30 <0.30 ng/mL 02/20/2017 8:30 PM CDT [facility] SERUM OR PLASMA SPECIMEN / Unknown 02/20/2017 6:37 PM CDT 02/20/2017 8:00 PM CDT us Generic Conversion Md [facility] Final R corrine Performing Organization Address City/[facility]/ZIP Co de Phone Number [facility] [address] [place] [address], [place] [phone] * CKMB(MB FRACTION ONLY) (02/20/2017 6:37 PM CDT) CK-MB 2.03 <7.70 ng/mL 02/20/2017 8:30 PM CDT [facility] SERUM OR PLASMA SPECIMEN / Unknown 02/20/2017 6:37 PM CDT 02/20/2017 8:00 PM CDT us Generic Conversion Md [facility] Final R esult [facility] [address] [place] [address], * (ABNORMAL) URINALYSIS WI REFLEX TO CULTURE (02/20/2017 6:37 PM CDT) SOURCE (FLUID) URINE CLEAN CATCH 02/20/2017 6:20 PM CDT [facility] COLOR (U) YELLOW 02/20/2017 7:19 PM CDT [facility] TRANSPARENCY CLEAR 02/20/2017 7:19 PM CDT [facility] SPECIFIC GRAVITY (U) 1.008 1.001 - 1.030 02/20/2017 7:19 PM CDT [facility] U PH 6.0 5.0 - 9.0 02/20/2017 7:19 PM CDT [facility] LEUKOCYTES (U) NEGATIVE NEGATIVE 02/20/2017 7:19 PM CDT [facility] NITRITES NEGATIVE NEGATIVE 02/20/2017 7:19 PM CDT [facility] PROTEIN (U) NEGATIVE <30 MG/DL 02/20/2017 7:19 PM CDT [facility] URINE GLUCOSE NEGATIVE NEGATIVE MG/DL 02/20/2017 7:19 PM CDT [facility] KETONES MG/DL (U) NEGATIVE NEGATIVE MG/DL 02/20/2017 7:19 PM CDT [facility] UROBILINOGEN NEGATIVE NEGATIVE MG/DL 02/20/2017 7:19 PM CDT [facility] BILIRUBIN (U) NEGATIVE NEGATIVE MG/DL 02/20/2017 7:19 PM CDT [facility] BLOOD (U) NEGATIVE NEGATIVE 02/20/2017 7:19 PM CDT [facility] CULTURE & SENSITIVITY INDICATED? CULTURE IS NOT INDICATED 02/20/2017 7:19 PM CDT [facility] MUCUS RARE /LPF 02/20/2017 7:19 PM CDT [facility] WBC/HPF 1 <6 /HPF 02/20/2017 7:19 PM CDT [facility] RBC/HPF 1 <6 /HPF 02/20/2017 7:19 PM CDT [facility] BACTERIA (U) RARE(A) NONE /HPF 02/20/2017 7:19 PM CDT [facility] 02/20/2017 6:37 PM CDT 02/20/2017 6:59 PM CDT us Generic Conversion Md [facility] URINE ORDERABLES Final Result Performing Organization Address City/[facility]/ZIP Co de Phone Number [facility] [address] [place] [address], [place] [phone] * (ABNORMAL) PARTIAL THROMBOPLASTIN TIME,PTT (02/20/2017 6:37 PM CDT) PTT 38.3(H) 25.5 - 37.6 SEC 02/20/2017 7:05 PM CDT [facility] PLASMA SPECIMEN / Unknown 02/20/2017 6:37 PM CDT 02/20/2017 6:41 PM CDT us Generic Conversion Md [facility] Final R esult Performing Organization Address [facility]/ZIP Co de Phone Number [facility] [address] [place] [address], [place] [phone] * PROTIME/INR, VENOUS (02/20/2017 6:37 PM CDT) PROTIME 11.8 9.6 - 12.2 SEC 02/23/2017 10:59 AM CDT [facility] Comment: ORIGINAL REPORT DID NOT DISPLAY PT REFERENCE RANGE. REPORT CORRECTED AND RANGE APPLIED. INR 1.1 02/20/2017 7:05 PM CDT [facility] Comment: Recommended INR Therapeutic Goals: ??2.0-3.0 Routine Therapy ??2.5-3.5 Mechanical Prosthetic Valves (High Risk) ??3.0-4.0 Acute HI (to prevent Systemic Embolism) The INR is used only for patients on stable oral anticoagulant therapy. It makes no significant contribution to the diagnosis or treatment of patients whose Protime is prolonged for other reasons. 02/20/2017 6:37 PM CDT 02/20/2017 6:41 PM CDT us Generic Conversion Md [facility] Final R esult [facility] [address] [place] [address], * COMPREHENSIVE METABOLIC PANEL (02/20/2017 6:37 PM CDT) GLUCOSE 93 70 - 99 mg/dL 02/20/2017 7:02 PM CDT [facility] BUN 9 8 - 23 mg/dL 02/20/2017 7:02 PM CDT [facility] CREATININE S/P/B 0.86 0.70 - 1.20 mg/dL 02/20/2017 7:02 PM CDT [facility] SODIUM S/P/B 141 136 - 145 mmol/L 02/20/2017 7:02 PM CDT [facility] POTASSIUM S/P/B 3.5 3.5 - 5.1 mmol/L 02/20/2017 7:02 PM CDT [facility] CHLORIDE S/P/B 101 98 - 107 mmol/L 02/20/2017 7:02 PM CDT [facility] CO2 26 22 - 29 mmol/L 02/20/2017 7:02 PM CDT [facility] BILIRUBIN TOTAL S/P/B 1.2 0.2 - 1.2 mg/dL 02/20/2017 7:02 PM T [facility] CALCIUM S/P/B 9.4 8.6 - 10.2 mg/dL 02/20/2017 7:02 PM CDT [facility] ALKALINE PHOSPHATASE S/P/B 67 40 - 129 U/L 02/20/2017 7:02 PM CDT [facility] AST 22 0 - 40 U/L 02/20/2017 7:02 PM T [facility] TOTAL PROTEIN S/P/B 8.0 6.4 - 8.3 g/dL 02/20/2017 7:02 PM T [facility] ALBUMIN S/P/B 4.6 3.5 - 5.2 g/dL 02/20/2017 7:02 PM T [facility] ALT 24 0 - 41 U/L 02/20/2017 7:02 PM T [facility] GLOBULIN 3.4 2.3 - 3.6 g/dL 02/20/2017 7:02 PM T [facility] A/G RATIO 1.4 1.0 - 2.0 02/20/2017 7:02 PM T [facility] ANION GAP 18 8 - 20 02/20/2017 7:02 PM T [facility] EGFR NON-AFR. AMER. >60 >60 mL/min/1.7 '2 02/20/2017 7:02 PM T [facility] EGFR AFR. AMER. >60 >60 mL/min/1.7 '2 02/20/2017 7:02 PM T [facility] Comment: NOTE: eGFR is not calculated for patients <18 years of age. This is an estimated GFR (CKD EPI) and should not be used for calculating drug doses. 02/20/2017 6:37 PM CDT 02/20/2017 6:41 PM CDT us Generic Conversion Md [facility] Final R esult [facility] [address] [place] [address], * (ABNORMAL) CBC W/DIFF AUTOMATED (02/20/2017 6:37 PM CDT) WBC 5.2 4.8 - 10.8 x10'3/uL 02/20/2017 6:52 PM CDT [facility] RBC 6.03 4.70 - 6.10 x10'6/uL 02/20/2017 6:52 PM CDT [facility] HGB 12.0(L) 14.0 - 18.0 G/DL 02/20/2017 6:52 PM CDT [facility] HCT 41.0(L) 43.0 - 54.0 % 02/20/2017 6:52 PM CDT [facility] MCV 68.0(L) 80.0 - 94.0 FL 02/20/2017 6:52 PM CDT [facility] MCH 19.9(L) 27.0 - 31.0 PG 02/20/2017 6:52 PM CDT [facility] MCHC 29.3(L) 32.0 - 36.0 G/DL 02/20/2017 6:52 PM CDT [facility] RDW 19.1(H) 11.5 - 14.5 % 02/20/2017 6:52 PM CDT [facility] PLT 204 130 - 400 x10'3/uL 02/20/2017 6:52 PM CDT [facility] MPV 9.7 9.3 - 12.2 FL 02/20/2017 6:52 PM CDT [facility] BASOPHILS 0.6 0.0 - 1.0 % 02/20/2017 7:31 PM CDT [facility] EOSINOPHILS 1.9 1.0 - 3.0 % 02/20/2017 7:31 PM CDT [facility] NEUTROPHILS % 64.1 43.0 - 65.0 % 02/20/2017 7:31 PM CDT [facility] LYMPHOCYTES % 28.0 20.0 - 46.0 % 02/20/2017 7:31 PM CDT [facility] MONOCYTES % 5.2 5.0 - 12.0 % 02/20/2017 7:31 PM CDT [facility] IMMATURE GRANS % 0.2 0.0 - 1.0 % 02/20/2017 7:31 PM CDT [facility] RBC MORPHOLOGY 3+ 02/20/2017 7:31 PM CDT [facility] Comment: ANISOCYTOSIS 2+ HYPOCHROMASIA 2+ MICROCYTES PATHOLOGIST COMMENT PATHOLOGIST REVIEW ADDED TO REPORT 02/22/2017 5:11 PM CDT [facility] Comment: [id number] HYPOCHROMIC MICROCYTIC ANEMIA. ??CHANGES MAY BE SEEN IN IRON DEFICIENCY AND/OR THALASSEMIA. WBC'S AND PLATELETS UNREMARKABLE. ??AGREE WITH WBC DIFFERENTIAL. REVIEWED BY BERTO VICTORIA M.D., PATHOLOGIST. WHOLE BLOOD SPECIMEN / Unknown 02/20/2017 6:37 PM CDT 02/20/2017 6:41 PM CDT us Generic Conversion Md [facility] Edited Result - Final [facility] [address] [place] [address], * POCT glucose (02/20/2017 6:29 PM CDT) GLUCOSE POC 80 70 - 99 mg/dL 02/21/2017 8:54 AM CDT [facility] ORDERS INTERFACE 02/20/2017 6:29 PM CDT 02/21/2017 8:54 AM CDT us Generic Conversion Md [facility] POCT ORDERABLES - DEVIC E Final Result [facility] ORDERS INTERFACE US documented in this encounter Visit Diagnoses Diagnosis Anesthesia of skin Disturbance of skin sensation documented in this encounter Care Teams Teletype Or Varitype Keyboard Operator Relationship Specialty Start Date End Date Alina Russell MD PCP - General 02/20/17 documented as of this encounter
--- OUTSIDE RECORDS SUMMARY | 2024-09-10 03:49 | XMS_ITS | Encounter Summary ---
Author Organization [facility] Address [address] [place] [address]. [place] [id number] [place] [address] Care Team Providers Care Horizontal Boring Mill Set Up Operator Name Role Phone Md Generic Conversion [...] Department Care Team (Latest Contact Info) Description 04/03/2014 Abstract [facility] Social History Tobacco [...] on filedocumented in this encounter Care Teams Horizontal Boring Mill Set Up Operator Relationship Specialty Start Date End Date [...]
--- OUTSIDE RECORDS SUMMARY | 2024-09-10 03:49 | XMS_ITS | Encounter Summary ---
Author Organization [facility] Address [address] [place] [address]. [place], [place] [address] [place] [address] Care Team Providers Care Dairy Hand Name Role Phone Md Generic Conversion Primary [...] Care Team (Late st Contact Info) Description 09/10/2015 Abstract [facility] [address], [place] [id number] Reymundo Lujan, JANE [address] [facility] [address] [place], [place] [id number] Social History Tobacco Use Types Packs/Day Years [...] Procedure Name Priority Date/Time Associated Diagnosis Comments CULTURE, WOUND, W/GRAM STAIN Routine 09/10/2015 4:50 PM FILM LIBRARY CLERK documented in this encounter Results * CULTURE, WOUND, W/GRAM STAIN (09/10/2015 4:50 PM FILM LIBRARY CLERK) SPEC DESCRIPTION ABSCESS 09/11/2015 12:23 PM FILM LIBRARY CLERK [facility] SPECIAL REQUESTS RIGHT CHEEK 09/11/2015 12:[address] [facility] GRAM STAIN RESULT NO WHITE BLOOD CELLS SEEN 09/11/2015 12:[address] [facility] GRAM STAIN RESULT RARE GRAM POSITIVE COCCI 09/11/2015 12:[address] [facility] CULTURE RESULT LIGHT GROWTH OF METHICILLIN RESISTANT STAPHYLOCOCCUS AUREUS FOLLOW ISOLATION PROTOCOL. 09/13/2015 10:[address] [facility] CULTURE RESULT NOTE: WOUND AND TISSUE CULTURES ARE ROUTINELY SCREENED FOR AEROBIC ORGANISMS ONLY. 09/13/2015 10:[address] [facility] SPECIMEN FROM ABSCESS / Unknown 09/10/2015 4:50 PM FILM LIBRARY CLERK 09/10/2015 5:13 PM FILM LIBRARY CLERK Narrative Organism Antibiotic Method Susceptibility Methicillin resistant staphylococcus aureus CLINDAMYCIN KATIE (VITEK) <=0.25: Sensitive Methicillin resistant staphylococcus aureus ERYTHROMYCIN AKTIE (VITEK) >=8: Resistant Methicillin resistant staphylococcus aureus OXACILLIN KATIE (VITEK) >=4: Resistant Methicillin resistant staphylococcus aureus TETRACYCLINE KATIE (VITEK) <=1: Sensitive Methicillin resistant staphylococcus aureus TRIMETH-SULFAMETH. KATIE (VITEK) <=10: Sensitive Methicillin resistant staphylococcus aureus VANCOMYCIN KATIE (VITEK) 1: Sensitive Methicillin resistant staphylococcus aureus LEVOFLOXACIN KATIE (VITEK) 0.25: Sensitive us Generic Conversion Md R[facility]LL MICROBIOLOGY - GENERAL ORDERABLES Final Result Performing Organization Address City/State/[facility] Co de Phone Number [facility] [address] [place] [address], documented in this encounter Visit Diagnoses Diagnosis Unspecified open wound of other part of head, initial encounter documented in this encounter Care Teams Dairy Hand Relationship Specialty Start Date End Date Md Generic ConversionMD PCP - General 02/20/17 Md Generic ConversionMD PCP - General 10/11/16 7 Md Generic ConversionMD PCP - General 07/19/16 Md Generic ConversionMD PCP - General 05/06/16 Md Generic ConversionMD PCP - General 01/23/16 Md, Generic Conversion, MD PCP - General 11/27/15 , Generic Conversion, MD PCP - General 11/13/15 , Generic Conversion, PCP - General 09/20/15 6 , Generic Conversion, MD PCP - General 09/10/15 6 documented as of this encounter
--- OUTSIDE RECORDS SUMMARY | 2024-09-10 03:49 | XMS_ITS | Encounter Summary ---
Author Organization [facility] Address [facility]. [place] [id number] [place], [place] [id number] Care Team Providers Care Transmitter Tester Name Role Phone Md Generic Conversion Primary [...] Department Care Team (Latest Contact Info) Description 04/05/2014 Abstract [facility] Balta Costello MD [address] [address] Social History Tobacco Use Types Packs/Day Years Used Date Smoking Tobacco: Never Assessed Sex and Gender Information Value Date Recorded Sex Assigned at Not on file Legal Sex Male 10:39 PM CDT Gender Identity Not on file Sexual Orientation Not on file documented as of this encounter Progress Notes * Generic Conversion MD Fermin - 04/05/2014 6:20 PM CDT Note Note: Called patient back. discussed the following issues: 1. Diverticulitis/Abd pain/nausea: 3 days ago. see at [facility] ER for abd pain. had loose stool and low grade temps off and on. he was significantly fatigued the 3 days prior c/o sleeping 15-12 hrs per day. he was not given abx reportedly (per patient) as he refused to do radiology scans. he was noted to have low potassium as well. he states he has been hydrating with water, and he has old script of flagyl. he apparently cannot take the cipro that was given to him at last visit as this hasapparently raised his sugars to the 200's. Instruction: hydrate well, soup, clear liquid diet, and monitor for now. continue prilosec, ranitidine for gerd. this does not feel like his diverticulitis nor does it feel like his IBS. suggested this may be a stomach bug as well. monitor for now as above. 2. Diabetes: patient states he stopped taking januvia as he was having the same symptoms he had with metformin. he states his BS ar running 130-140's usually now (as opposed to significant fluctuations from 67-at high as 300's recently). had previously discussed that metformin and januvia usually do not do this. Instructions: stressed that he find a new primary care physician as soon as possible to further address his diabetes. previously suggested to patient to find endocrinology to help with the diabetes, but there is a waiting period to get in. 3. Anxiety: previously doing better on celexa 40 mg daily and Wellbutrin IR 75 mg BID. he has notedsome increased anxiety recently though possibly from stopping the januvia. He was also going to be looking for counseling for his anxiety Instruction: continue with current treatment with celexa 40 mg daily and wellbutrin 75 mg BID and xanax. plan originally was to increase the wellbutrin to 75 mg TID and to gradually wean xanax once anxiety is better controlled. needs to follow up with new PCP in this regard. 4. HTN: patient on lisinopril daily 10 mg and BP is doing well per report. Instructions: doing well on lisinopril (thus stay on it/continue it). Over all these above issues, it was discussed with patient and Grants Officer last week (erroneously not documented, now currently officially documented) that WE WILL NO LONGER BE PROVIDING MEDICAL CARE FOR THIS PATIENT. there is a 30 day keke period for which we will fill medications. This isin response to the patient's frequent calling both during normal business hours and after hours which has impacted our staff's ability to function propperly. I previously discussed with the patient that he must limit his calls to 1 call a day, to itemize the issues that need to be address, and thati would get a response to him within 24 hrs unless there are more pressing concerns. Despite this he had called repeatedly with further issues, concerns, which again had impacted our staff's ability to function during the normal business day. It was last week that after discussing the situation with the Grants Officer, it was agreed upon between her and I that he did indeed violate the stipulations laid out by our office and that we would convey to the patient that we will no longer be ableto provide care for him. He acknowledges, is made aware of this, and is looking [facility] an new PCP, [facility] he requests that his last scheduled visit 04-23-2014 be rescheduled to earlier as he is leaving on 04-20-2014 or 04-21-2014 to [place] to visit family. Discussed that I would get back to him on this and if at all possible, 04-20-2014 afternoon would be the only available spot. will get back to patient tomorrow through staff. if he is unable to make the visit, I did say that we will fill his necessary medications for 30 days only. This includes the Celexa 40 mg daily, Wellbutrin IR 75 mg TID, Lisinopril 10 mg daily, Xanax. Balta Costello MD Message Recorded as Task Date: 04/05/2014 07:56 AM, Created By: Danika Toure Task Name: Medical Complaint Callback Assigned To: Balta Costello Regarding Patient: Carlos Mcgee, Status: Active Comment: Danika Toure - 05 Apr 2014 7:56 AM TASK CREATED Caller: Self; Medical Complaint; Patient called and said you called him and he wants to talk to you personally because you wanted totalk to him personally. I read the note you have in the file, and he said he had went to ER, and ithad nothing to do with his blood sugar, so why are you talking about blood sugar and Januvia? He went to ER for diverticulitis and sleeping a lot. Said he was sleeping 15-21 hours a day. Said he heard recording even though his phone was not working. He also said he went to ER at [facility], and his phone will work today if you want to call back. BTW-- he is not taking Januvia any longer because he said it gae him all the side effects the metformin did--CP, anxiety, tremors. Blood sugar is good. Said you can get the labs from [facility] since you are technically his pcp still . He wants am appointment this week. Balta Costello - 05 Apr 2014 5:37 PM TASK EDITED Called and LMOM for patient to call back 536 PM 04-05-2014. Will try again in a bit. Signatures Electronically signed by : Balta Costello M.D.; Apr 05 2014 6:43PM CALL TAKER (Author) * Alina Langston Md, MD - 04/05/2014 5:58 PM CDT Note Note: acknowledged mlee Message Recorded as Task Date: 04/05/2014 08:10 AM, Created By: Danika Toure Task Name: Medical Complaint Callback Assigned To: Balta Costello Regarding Patient: Carlos Mcgee, Status: Active Comment: Danika Toure - 05 Apr 2014 8:10 AM TASK CREATED Caller: Self; Medical Complaint; Call 3 Signatures Electronically signed by : Balta Costello M.D.; Apr 05 2014 5:59PM CALL TAKER (Author) * Alina Langston Md, MD - 04/05/2014 5:37 PM CDT Message Recorded as Task Date: 04/05/2014 08:08 AM, Created By: Danika Toure Task Name: Medical Complaint Callback Assigned To: Balta Costello Regarding Patient: Carlos Mcgee, Status: Active Comment: Danika Toure - 05 Apr 2014 8:08 AM TASK CREATED Caller: Self; Medical Complaint; Just documenting that he called again. Told him he was only supposed to call once a day, and I willput him thru to . he was not happy, and said we are strong about the one call a day policy. Told him we were and he will go to . Signatures Electronically signed by : Balta Costello M.D.; Apr 05 2014 5:38PM CALL TAKER (Author) documented in this encounter Plan of Treatment Not on file documented as of this encounter Visit Diagnoses Not on filedocumented in this encounter Care Teams Transmitter Tester Relationship Specialty Start Date End Date Md Generic Conversion, PCP - General 02/20/17 Md Generic Conversion, MD PCP - General 10/11/16 7 , Generic Conversion, PCP - General 07/19/16 Md, Generic Conversion, PCP - General 05/06/16 , Generic Conversion, MD PCP - General 01/23/16 [...] Generic Conversion, MD PCP - General 09/10/14 Md Generic Conversion, PCP - General 07/30/1409/09 Md Generic Conversion, PCP - General 06/09/1407/29 Balta Costello MD PCP - General 02/02/14 06/08/14 documented as of this encounter
--- OUTSIDE RECORDS SUMMARY | 2024-09-10 03:50 | XMS_ITS | Encounter Summary ---
Author Organization [facility] Address [facility]. [place], [place] [address] [place], [place] [id number] Care Team Providers Care Personnel Generalist Manager Name Role Phone Md Generic Conversion [...] Unavailable Balta Costello MD Primary Care Provider UnavailBalta Roberts MD Primary Care Provider Unavailsheryl ble Md Generic Conversion Primary Care Provider Unavailable [...] Care Team (Late st Contact Info) Description 11/06/2009 Emergency [facility] [place] [address] Zachary Jaime MD Social History Tobacco Use [...] on filedocumented in this encounter Care Teams Personnel Generalist Manager Relationship Specialty Start Date End Date Md Generic Conversion, PCP - General 02/20/17 Md Generic Conversion, MD PCP - General 10/11/16 7 Md, [...] Balta Costello, PCP - General 02/02/14 06/08/14 Balta Costello, PCP - General 12/29/13 02/01/14 Md, Generic Conversion, PCP - General 12/20/13 Md, Generic Conversion, MD PCP - General 08/03/13 4 Md, Generic Conversion, MD PCP - General 07/07/1208/02 Md, Generic Conversion, MD PCP - General 04/12/1207/06 Md, Generic Conversion, MD PCP - General 11/02/11 Md, Generic Conversion, MD PCP - General 10/06/11 Md, Generic Conversion, MD PCP - General 05/28/11 Md, Generic Conversion, MD PCP - General 03/11/11 Md, Generic Conversion, MD PCP - General 02/06/11 Md, Generic Conversion, MD PCP - General 12/28/10 Md, Generic Conversion, MD PCP - General 12/05/10 Md, Generic Conversion, MD PCP - General 11/23/10 Md, Generic Conversion, MD PCP - General 11/22/10 Md, Generic Conversion, MD PCP - General 11/15/10 Md, Generic Conversion, MD PCP - General 11/04/10 1 Md, Generic Conversion, MD PCP - General 09/24/10 documented as of this encounter
--- OUTSIDE RECORDS SUMMARY | 2024-09-10 03:50 | XMS_ITS | Encounter Summary ---
Author Organization [facility] Address [address] [place] [address]. [place] [id number] [place] [address] Care Team Providers Care Wood Patternmaker Name Role Phone Md Generic Conversion Primary [...] Costello MD Primary Care Provider Unavaila ble Balta Costello MD Primary Care Provider Unavaila ble Encounter Details Date Type Department Care Team (Latest Contact Info) Description 01/02/2014 Abstract [facility] Social History Tobacco [...] on filedocumented in this encounter Care Teams Wood Patternmaker Relationship Specialty Start Date End Date Md Generic ConversionMD PCP - General 02/20/17 Md Generic ConversionMD PCP - General 10/11/16 7 Md Generic ConversionMD PCP - General 07/19/16 Md Generic ConversionMD PCP - General 05/06/16 Md Generic ConversionMD PCP - General 01/23/16 Md Generic ConversionMD PCP - General 11/27/15 Md, Generic Conversion, PCP - General 11/13/15 , Generic Conversion, PCP - General 09/20/15 6 , Generic Conversion, PCP - General 09/10/15 6 , Generic Conversion, PCP - General 02/14/1509/09 , Generic Conversion, PCP - General 12/11/14 5 , Generic Conversion, PCP - General 09/10/14 , Generic Conversion, PCP - General 07/30/1409/09 , Generic Conversion, PCP - General 06/09/1407/29 Balta Costello, PCP - General 02/02/14 06/08/14 Balta Costello, PCP - General 12/29/13 02/01/14 documented as of this encounter
--- OUTSIDE RECORDS SUMMARY | 2024-09-10 03:50 | XMS_ITS | Encounter Summary ---
Author Organization [facility] Address [address] [place] [address]. [place], [place] [id number] [place], [place] [id number] Care Team Providers Care Travel Specialist Name Role Phone Md Generic Conversion [...] Care Team (Late st Contact Info) Description 03/05/2014 Abstract [facility] Family Medicine - [place] [address], [address] [place] [address] Balta Costello MD [address] [place] [address] Social History Tobacco Use Types Packs/Day Years Used Date Smoking Tobacco: Never Assessed Sex and Gender Information Value Date Recorded Sex Assigned at Not on file Legal Sex Male 10:39 PM CDT Gender Identity Not on file Sexual Orientation Not on file documented as of this encounter Last Filed Vital Signs Vital Sign Reading Time Taken Comments Blood Pressure 134/90 03/05/2014 10:26 AM CDT Pulse 88 03/05/2014 10:26 AM CDT Temperature - - Respiratory Rate - - Oxygen Saturation - - Inhaled Oxygen Concentration - - Weight 131.8 kg (290 lb 8 oz) 03/05/2014 10:26 A M CDT Height 188 cm (6' 2 ) 03/05/2014 10:26 AM CDT Body Mass Index 37.3 03/05/2014 10:26 AM CDT documented in this encounter Progress Notes * Generic Conversion MD Fermin - 03/05/2014 10:30 AM CDT Reason For Visit Medication change Chronic Recheck Visit History of Present Illness patient comes in for re-evaluation for various issues. He was seen by Dr. Durbin last week as thisphysician was away. As noted in the last visit by Dr. Durbin, he was using celexa 40 mg daily and xanax 2 mg TID and 1/2 tab qhs for anxiety. He was given ativan for anxiety instead of his xanax, which was initially reported lost, but later found, and wet and thus was not taken. he reports significant RUSSO, anxiety, even when driving (he states he got the use of a car for a few days). he also is reporting nausea frequently. he does not know why he is having his symptoms. he does have mutliple co-morbid issues. He does state he had chronic ear infections/sinus issues. he states he has a script of amoxil that is waiting for him at [facility], called in by per patient someone in our office. he has notpicked up the script yet. He has DM2 that is not well controlled as he is not tolerating the metformin in the past. he has not tolerated metformin as he has had increased anxiety, discomfort with taking this medication. he was given januvia samples at last visit but he has not taken them yet. Elevated BP: patient has had elevated BP throughout multiple visits (not just in the past 2 weeks).Initially his BP was normal on initial visit. he is having RUSSO, not feeling good, nausea as well. hewas given lisinopril and simvastatin by his previous PCP but given that his BP was normal at initial visit and the fact that he reported normal BPs in the past, we initially did not continue the medic ation. He does have co-morbid conditions of HLD and DM2. on top of all of this, he reports that he is currently homeless, and in the recent past been staying in hotel rooms. he does not have routine transportation to get food on a regular basis. he states that he has an ENT physician as well though. follow up Review of Systems See HPI for pertinent positives. Constitutional: fever and headache, but no chills. low grade temps Cardiovascular: chest pain and palpitations. Respiratory: shortness of breath. Neurological: dizziness. Active Problems 1. Abdominal pain (789.00) (R10.9) 2. Abnormal liver function test (790.6) (R79.89) 3. Anxiety (300.00) (F41.9) 4. Asthma (493.90) (J45.909) 5. Atypical chest pain (786.59) (R07.89) 6. Conjunctivitis (372.30) (H10.9) 7. Diabetes mellitus (250.00) (E11.9) 8. Diverticulosis of colon (562.10) (K57.30) 9. GERD (gastroesophageal reflux disease) (530.81) (K21.9) 10. Hyperglycemia (790.29) (R73.9) 11. Hyperlipidemia (272.4) (E78.5) 12. Hypertension (401.9) (I10) 13. Joint swelling (719.00) (M25.40) 14. Obesity (278.00) (E66.9) 15. Paresthesias (782.0) (R20.2) 16. Sinusitis (473.9) (J32.9) Social History ?? No alcohol use ?? Non-smoker (V49.89) (Z78.9) Current Meds 1. ALPRAZolam 2 MG Oral Tablet; TAKE 1 TABLET 3 TIMES DAILY NEEDED and 1/2 tab at night; Therapy: 15Jan2014 to (Last Rx:08Feb2014) Ordered 2. Amitriptyline HCl - 25 MG Oral Tablet; TAKE 1 TABLET AT BEDTIME; Therapy: 08Feb2014 to (Evaluate:10Mar2014); Last Rx:08Feb2014 Ordered 3. Amoxicillin 875 MG Oral Tablet; TAKE 1 TABLET EVERY 12 HOURS DAILY; Therapy: 02Mar2014 to (Evaluate:12Mar2014) Requested for: 02Mar2014; Last Rx:02Mar2014 Ordered 4. Citalopram Hydrobromide 40 MG Oral Tablet; TAKE 1 TABLET BY MOUTH EVERY DAY; Therapy: 15Jan2014 to (Evaluate:[id number]); Last Rx:08Feb2014 Ordered 5. Claritin 10 MG Oral Capsule; Therapy: (Recorded:04Jan2014) to Recorded 6. Flonase SUSP; Therapy: (Recorded:04Jan2014) to Recorded 7. Hyoscyamine Sulfate 0.125 MG Oral Tablet; TAKE 1 TABLET 3-4 TIMES DAILY NEEDED; Therapy: 15Jan2014 to (Evaluate:[id number]); Last Rx:15Jan2014 Ordered 8. Januvia 100 MG Oral Tablet; TAKE 1 TABLET ONCE DAILY; Therapy: 27Feb2014 to (Evaluate:27Jun2014); Last Rx:27Feb2014 Ordered 9. LORazepam 2 MG Oral Tablet; TAKE 1 TABLET 3 TIMES DAILY NEEDED; Therapy: 27Feb2014 to (Evaluate:06Mar2014); Last Rx:27Feb2014 Ordered 10. Hslorudb-Pcggjseap-NP 3.5-69476-3 Ophthalmic Suspension; INSTILL 1 DROP IN BOTH EYES EVERY 4 HOURS DAILY; Therapy: 02Mar2014 to (Last Rx:02Mar2014) Requested for: 02Mar2014 Ordered 11. PriLOSEC 40 MG Oral Capsule Delayed Release; Therapy: (Recorded:04Jan2014) to Recorded 12. Promethazine HCl - 25 MG Oral Tablet; Therapy: (Recorded:05Mar2014) to Recorded 13. Tylenol TABS; Therapy: (Recorded:04Jan2014) to Recorded Allergies 1. Bactrim DS TABS 2. Levaquin TABS 3. Percocet TABS 4. Sulfa Drugs 5. Contrast Dye Vitals Recorded by : Sophia Lee at 05Mar2014 10:26AM Temperature 98.7 F Heart Rate 88 Respiration 16 Systolic 134 Diastolic 90 Height 6 ft 2 in Weight 290 lb 8.0 oz BMI Calculated 37.3 BSA Calculated 2.55 Physical Exam Constitutional General appearance: No acute distress, well appearing and well nourished. Head and Face Head and face: Normal. Palpation of the face and sinuses: Abnormal. (midline frontal sinus ttp) Ears, Nose, Mouth, and Throat External inspection of ears and nose: Abnormal. Mild whitish discharge in left ear and right ear. Otoscopic examination: Abnormal. Left ear red TM mildly. Nasal mucosa, septum, and turbinates: Abnormal. Left nare congestion with redness. Oropharynx: Abnormal. Trace erythema. Pulmonary Respiratory effort: No increased work of breathing or signs of respiratory distress. Auscultation of lungs: Clear to auscultation. Cardiovascular Auscultation of heart: Normal rate and rhythm, normal S1 and S2, no murmurs. Mild rapid heart beat.No carotid bruits. Abdomen Abdomen: Non-tender, no masses. Lymphatic Palpation of lymph nodes in neck: Abnormal. Bilateral anterior cervical node enlargement, but no supraclavicular node enlargement. Skin Examination of the skin for lesions: Abnormal. Left forearm with a 1 cm open lesion with possible puncture wound in the center. no expressable pus. top of lesion is moist, appearingly denuded or at least the epidermal layers are off the top of the lesion. mild surrounding erythema is noted. Psychiatric Orientation to person, place and time: Normal. Mood and affect: Abnormal. Appears tired, but good eye contact. affect is down. Assessment 1. Acute otitis media (382.9) (H66.90) 2. Anxiety (300.00) (F41.9) 3. Hypertension (401.9) (I10) 4. Diabetes mellitus (250.00) (E11.9) Plan 1. Start: BuPROPion HCl - 100 MG Oral Tablet; TAKE 1 TABLET 3 times daily Rx By: Balta Costello; Dispense: 30 Days ; #:90 Tablet; Refill: 0; For: Anxiety; LAURA = N; Verified Transmission to [facility]; Last Updated By: Privaris; 03/05/2014 11:01:16 AM 2. Renew: ALPRAZolam 2 MG Oral Tablet; TAKE 1 TABLET 3 TIMES DAILY NEEDED and 1/2 tab at night Rx By: Balta Costello; Dispense: 0 Days ; #:135 Tablet; Refill: 0; For: Anxiety; LAURA = N; Print Rx 3. Renew: Omeprazole 40 MG Oral Capsule Delayed Release (PriLOSEC 40 MG Oral Capsule Delayed Release); TAKE 1 CAPSULE Daily Rx By: Balta Costello; Dispense: 0 Days ; #:30 Capsule Delayed Release; Refill: 2; For: GERD (gastroesophageal reflux disease); LAURA = N; Verified Transmission to [facility]; Last Updated By: Privaris; 03/05/2014 11:01:11 AM 4. Changed: From Promethazine HCl - 25 MG Oral Tablet To Promethazine HCl - 25 MG Oral Tablet TAKE 1 TABLET 3 TIMES DAILY NEEDED Rx By: Balta Costello; Dispense: 10 Days ; #:30 Tablet; Refill: 0; For: Health Maintenance; LAURA = N; Record; Last Updated By: Peggy Camacho; 03/05/2014 11:13:42 AM Discussion/Summary 1. Acute OM: fill abx script for amoxil. avoid sudafed. this may also help the skin lesion to the left forearm which may per patient report been a spider bite. if not improved consider augmentin. patient has mutliple allergies to meeds. 2. anxiety/moods: trial of bupriprion 100 mg daily x 1-2 week, then increase as tolerated to 1 tab twice a week for 1-2 weeks. maximum is 100 mg three times a week to see how this helps the anxiety. refill xanax for now. 3. HTN: previous PCP gave lisinopril but given his initially normal BP we opted to hold off taking it. although he is on sudafed now, he has had high BP readings in the past without sudafed as well now. encouraged taking it once a day for his RUSSO, and BP and see if this improves his symptoms significantly. 4. Dm2: take januvia daily and see if this helps. F/U 2 weeks. Signatures Electronically signed by : Balta Costello M.D.; Mar 05 2014 1:29PM LATEX SPOOLER (Author) documented in this encounter Plan of Treatment Not on file documented as of this encounter Visit Diagnoses Not on filedocumented in this encounter Care Teams Travel Specialist Relationship Specialty Start Date End Date Alina Christensen MD PCP - General 02/20/17 Alina Christensen MD PCP - General 10/11/16 7 Alina Christensen MD PCP - General 07/19/16 Alina Christensen MD PCP - General 05/06/16 Alina Christensen MD PCP - General 01/23/16 Alina Christensen MD PCP - General 11/27/15 Md, Generic [...]
--- OUTSIDE RECORDS SUMMARY | 2024-09-10 03:50 | XMS_ITS | Encounter Summary ---
Author Organization [facility] Address [facility]. [place], [place] [address] [place], [place] [id number] Care Team Providers Care Automotive Airconditioning Mechanic Name Role Phone Md Generic Conversion [...] UnavailBalta Roberts MD Primary Care Provider Unavailsheryl oliva Md Generic Conversion Primary Care Provider Unavailable [...] Care Team (Late st Contact Info) Description 11/05/2008 Emergency [facility] [place] [address] Md Generic MD Ivis Social History Tobacco [...] on filedocumented in this encounter Care Teams Automotive Airconditioning Mechanic Relationship Specialty Start Date End Date [...] PCP - General 12/28/10 Md, Generic Conversion, PCP - General 12/05/10 Md, Generic Conversion, MD PCP - General 11/23/10 Md, Generic Conversion, MD PCP - General 11/22/10 Md, Generic Conversion, PCP - General 11/15/10 Md, Generic Conversion, PCP - General 11/04/10 1 Md, Generic Conversion, MD PCP - General 09/24/10 documented as of this encounter
--- OUTSIDE RECORDS SUMMARY | 2024-09-10 03:50 | XMS_ITS | Encounter Summary ---
Author Organization [facility] Address [facility]. [place] [id number] [place] [address] Care Team Providers Care Cnc Supervisor Name Role Phone Md Generic Conversion [...] Department Care Team (Latest Contact Info) Description 03/09/2014 Abstract [facility] Medical [facility] Balta Costello MD [address] [place] [address] Social History Tobacco Use Types Packs/Day Years Used Date Smoking Tobacco: Never Assessed Sex and Gender Information Value Date Recorded Sex Assigned at Not on file Legal Sex Male 10:39 PM CDT Gender Identity Not on file Sexual Orientation Not on file documented as of this encounter Progress Notes * Generic Conversion MD Fermin - 03/09/2014 5:11 PM CDT Message Patient has called multiple times over the past week, and even multiple times throughout the day. ID staff has recurrently instructed the patient to continue with my instructions given at last visit.I return the patient's phone call today. he reports the following questions: 1. He is taking the amoxil and is still not feeling good. - on clarification, he is taking the amoxil and his sinuses are without change, but he has seen ENT before and all they give him is steroids (nasal?). his ear is feeling better. He has no nausea now (it's resolved!). 2. Anger/Panic/ANxiety: he is crying a lot and is having frequent panic attacks. he has abnormal sensations such as visual disturbances such as sitting in a stationary car and seeing another car coming towards him (it apparently was not). he notes that he feels angry, uncontrollably sometimes whichis new. he is not sure why he was angry (last night). [note - patient called insurance consultant physician lastnight, complaining initially of office staff telling him he cannot call so frequently, and then peron call physician, the patient was making threats to the (office?) staff when talking to the exchange line staff. per insurance consultant physician, he later apologized]. Patient describes himself as feeling detached from reality -- the sensation he is feeling. he feels like he is just existing, not living. he denies any SI/HI. patient has taken the celexa and started on the wellbutrin IR 100 mg daily for 4 days now and has not had any change in symptoms, does not feel any different (he was having cryingspells apparently even before the wellbutrin was started). he states he has taken xanax and even meclizine to help calm him down. socially, he is again in a hotel room and feels like he is living in shelter. he does not go out much. this is a drastic change from his previous lifestyle (per his report of his lifestyle when he initially started care at this office). he additionally offers that he was diagnosed at one time with PTSD. He recounts what sounds to be mutiple experiences with mental health providers throughout the years, including at [facility], and locally Dr. Carbajal. He reports Dr. Castellanos is not taking patients. He does not want to see Dr. Matt because of his reputation (per patient). He states he had success with biofeed back education at [facility] in the past. He was wondering if mental health in [place] (either at [facility] or [facility]) would be beneficial for him. he is concerned that mental health will be fearful of weaning him off of xanax as we initially planned on at his initial office visit. Discussed with patient that I agree that mental health would be a good option for him to help with his significant symptoms and that he should research this further. let me know what he finds out. discussed that if anything I would like to discuss with his mental health provider (if he finds one) so that we can work together to help the patient. discussed that I feel comfortable weaning the xanaxwhen (when ready). discussed that again, we should stick to the plan of maintaining wellbutrin at 100 mg daily for another week and see if this helps him. if no worsening s/e or symptoms then increase to 100 mg BID as directed at last visit. pt acknowledged. 3. HTN: patient still having RUSSO for which is it not worsening and that he is taking tylenol and motrin alternating for. he was noted to have HTN at last visit, and he has not yet started the lisinopril as we had planned to start the multiple medications discussed at last visit piecemeal (for tolerance/side effects). discussed that we should stick again to the plan for that. 4. Patient also reports back pain, but since I did not evaluate this, I merely suggested it could be from laying in bed long time. try heat (ie- showers). Discussed finally with patient that his multiple calls cannot happen essentially as my staff is very busy with the significant amount of work that I give them to do. He states he would not call so frequently if he would get a call back to his questions. I told him that i have told them to tell him (and they have) to stick to our plan as outlined at our last visit. I reviewed what we have discussed above and indicated that there has been improvement in some areas, and that we are essentially staying with our plan. He states he acknowledges, and that he promises as a man to only call when necessary (having s/e). Instructed the patient to call once, itemize what his concerns are, so the staff can pass the message to me. If there is any changes to the plan, I will convey this to the staff to discuss with him. instructed the patient to be concise with this concerns. pt acknowledged. 45 minutes spent on phone with patient. patient to call back next week to update physician on wellbutrin results (and if he found mental health). monitor for now. mlee Current Meds 1. ALPRAZolam 2 MG Oral Tablet; TAKE 1 TABLET 3 TIMES DAILY NEEDED and 1/2 tab at night; Therapy: 15Jan2014 to (Last Rx:05Mar2014) Ordered 2. Amitriptyline HCl - 25 MG Oral Tablet; TAKE 1 TABLET AT BEDTIME; Therapy: 08Feb2014 to (Evaluate:10Mar2014); Last Rx:08Feb2014 Ordered 3. Amoxicillin 875 MG Oral Tablet; TAKE 1 TABLET EVERY 12 HOURS DAILY; Therapy: 02Mar2014 to (Evaluate:12Mar2014) Requested for: 02Mar2014; Last Rx:02Mar2014 Ordered 4. BuPROPion HCl - 100 MG Oral Tablet; TAKE 1 TABLET 3 times daily; Therapy: 05Mar2014 to (Evaluate:[id number]) Requested for: 05Mar2014; Last Rx:05Mar2014 Ordered 5. Citalopram Hydrobromide 40 MG Oral Tablet; TAKE 1 TABLET BY MOUTH EVERY DAY; Therapy: 15Jan2014 to (Evaluate:[id number]); Last Rx:08Feb2014 Ordered 6. Claritin 10 MG Oral Capsule; Therapy: (Recorded:04Jan2014) to Recorded 7. Fluticasone Propionate 50 MCG/ACT Nasal Suspension (Flonase 50 MCG/ACT Nasal Suspension); USE 1 TO 2 SPRAYS IN EACH NOSTRIL ONCE DAILY Requested for: 05Mar2014; Last Rx:05Mar2014 Ordered 8. Hyoscyamine Sulfate 0.125 MG Oral Tablet; TAKE 1 TABLET 3-4 TIMES DAILY NEEDED; Therapy: 15Jan2014 to (Evaluate:[id number]); Last Rx:15Jan2014 Ordered 9. Januvia 100 MG Oral Tablet; TAKE 1 TABLET ONCE DAILY; Therapy: 27Feb2014 to (Evaluate:[id number]); Last Rx:27Feb2014 Ordered 10. LORazepam 2 MG Oral Tablet; TAKE 1 TABLET 3 TIMES DAILY NEEDED; Therapy: 27Feb2014 to (Evaluate:06Mar2014); Last Rx:27Feb2014 Ordered 11. Vgtqwhti-Vrzvoxwvu-VM 3.5-96568-8 Ophthalmic Suspension (Kvvdqpsz-Srszngwzs-LL); INSTILL 1 DROP IN BOTH EYES EVERY 4 HOURS DAILY; Therapy: 02Mar2014 to (Last Rx:02Mar2014) Requested for: 02Mar2014 Ordered 12. Omeprazole 40 MG Oral Capsule Delayed Release (PriLOSEC 40 MG Oral Capsule Delayed Release); TAKE 1 CAPSULE Daily Requested for: 05Mar2014; Last Rx:05Mar2014 Ordered 13. Promethazine HCl - 25 MG Oral Tablet; TAKE 1 TABLET 3 TIMES DAILY NEEDED; Last Rx:05Mar2014 Ordered 14. Tylenol TABS; Therapy: (Recorded:04Jan2014) to Recorded Signatures Electronically signed by : Balta Costello M.D.; Mar 09 2014 6:22PM BLOCK PAVER (Author) documented in this encounter Plan of Treatment Not on file documented as of this encounter Visit Diagnoses Not on filedocumented in this encounter Care Teams Cnc Supervisor Relationship Specialty Start Date End Date Md Generic Conversion, PCP - General 02/20/17 Md Generic Conversion, PCP - General 10/11/16 7 Md Generic Conversion, PCP - General 07/19/16 Md, Generic Conversion, PCP - General 05/06/16 Md, Generic Conversion, PCP - General 01/23/16 Md, Generic Conversion, PCP - General 11/27/15 Md, Generic Conversion, PCP - General 11/13/15 Md [...]
--- OUTSIDE RECORDS SUMMARY | 2024-09-10 03:50 | XMS_ITS | Encounter Summary ---
Author Organization [facility] Address Formerly [facility], [facility]6 [facility]. [place], [place] [address] [place], [place] [id number] Care Team Providers Care Gang Knife Fish Chopper Name Role Phone Md Generic Conversion Primary [...] Costello MD Primary Care Provider Unavaila ble Md Generic Conversion Primary Care Provider [...] Md Generic Conversion Primary Care Provider Unavailable None, Provider Primary Care Provider Unavaila ble Encounter Details Date Type Department Care Team (Late st Contact Info) Description 05/26/2000 Abstract [facility] [address] [place] [address] Md Generic ConversionMD Social History Tobacco Use Types Packs/Day Years [...] on filedocumented in this encounter Care Teams Gang Knife Fish Chopper Relationship Specialty Start Date End Date Md [...] Md, Generic Conversion, PCP - General 11/04/10 Md, Generic Conversion, PCP - General 09/24/10 None, Provider, PCP - General 06/03/18 08/24/19 documented as of this encounter
--- OUTSIDE RECORDS SUMMARY | 2024-09-10 03:50 | XMS_ITS | Encounter Summary ---
Author Organization [facility] Address [facility]6 [facility]. [place], [place] [address] [place] [address] Care Team Providers Care Enhanced Environmental Operator Name Role Phone Md Generic Conversion [...] Unavailable Balta Costello MD Primary Care Provider Unavailsheryl ble Balta Costello MD Primary Care Provider [...] Care Team (Late st Contact Info) Description 11/15/2010 Emergency [facility] [place] [address] Prosper Tellez MD [facility] [place] [address] Social History Tobacco Use Types Packs/Day Years Used Date Smoking Tobacco: Never Assessed Sex and Gender Information Value Date Recorded Sex Assigned at Not on file Legal Sex Male 10:39 PM CDT Gender Identity Not on file Sexual Orientation Not on file documented as of this encounter Plan of Treatment Not on file documented as of this encounter Visit Diagnoses Diagnosis Other injury of abdomen documented in this encounter Care Teams Enhanced Environmental Operator Relationship Specialty Start Date End Date [...] PCP - General 02/06/11 Md, Generic Conversion, PCP - General 12/28/10 Md, Generic Conversion, PCP - General 12/05/10 Md, Generic Conversion, MD PCP - General 11/23/10 Md, Generic Conversion, PCP - General 11/22/10 Md, Generic Conversion, MD PCP - General 11/15/10 documented as of this encounter
--- OUTSIDE RECORDS SUMMARY | 2024-09-10 03:50 | XMS_ITS | Encounter Summary ---
Author Organization [facility] Address [facility]6 [facility]. [place], [place] [address] [place], [place] [id number] Care Team Providers Care Flat Spring Assembler Name Role Phone Md Generic Conversion [...] UnavailBalta Roberts MD Primary Care Provider Unavailsheryl olvia Md Generic Conversion Primary Care Provider Unavailable [...] Care Team (Late st Contact Info) Description 06/28/2007 Emergency [facility] [place] [address] Md Generic MD Ivis Social History Tobacco [...] on filedocumented in this encounter Care Teams Flat Spring Assembler Relationship Specialty Start Date End Date [...]
--- OUTSIDE RECORDS SUMMARY | 2024-09-10 03:50 | XMS_ITS | Encounter Summary ---
Author Organization [facility] Address [facility]6 [facility]. [place] [id number] [place] [address] Care Team Providers Care Director Of Extension Work Name Role Phone Md Generic Conversion Primary [...] Provider UnavailBalta Roberts MD Primary Care Provider Unavaila ble Md [...] Care Team (Late st Contact Info) Description 02/06/2011 Emergency [facility] Emergency [place], [place] [address] Mahi Amin MD [address] [place] [address] Social History Tobacco Use Types Packs/Day Years Used Date Smoking Tobacco: Never Assessed Sex and Gender Information Value Date Recorded Sex Assigned at Not on file Legal Sex Male 10:39 PM CDT Gender Identity Not on file Sexual Orientation Not on file documented as of this encounter Plan of Treatment Not on file documented as of this encounter Visit Diagnoses Diagnosis Painful respiration documented in this encounter Care Teams Director Of Extension Work Relationship Specialty Start Date End Date Md Generic Conversion, PCP - General 02/20/17 , Generic Conversion, PCP - General 10/11/16 7 [...] - General 12/29/13 02/01/14 Md, Generic Conversion, MD PCP - General 12/20/13 Md, Generic Conversion, [...] Generic Conversion, MD PCP - General 02/06/11 documented as of this encounter
--- OUTSIDE RECORDS SUMMARY | 2024-09-10 03:50 | XMS_ITS | Encounter Summary ---
Author Organization [facility] Address [facility] access hospital[address] [facility]. [place], [place] [address] [place], [place] [id number] Care Team Providers Care Founder And Chief Executive Officer Name Role Phone Md Generic Conversion [...] Care Team (Late st Contact Info) Description 12/05/2010 Abstract [facility] [place], [place] [address] Nathan Benz MD [address] [facility], [address] [address] Social History Tobacco Use Types Packs/Day Years Used Date Smoking Tobacco: Never Assessed Sex and Gender Information Value Date Recorded Sex Assigned at Not on file Legal Sex Male 10:39 PM CDT Gender Identity Not on file Sexual Orientation Not on file documented as of this encounter Plan of Treatment Not on file documented as of this encounter Visit Diagnoses Diagnosis Gastritis and gastroduodenitis Unspecified gastritis and gastroduodenitis without mention of hemorrhage documented in this encounter Care Teams Founder And Chief Executive Officer Relationship Specialty Start Date End Date Md Generic Conversion, PCP - General 02/20/17 Md, Generic Conversion, MD PCP - General 10/11/16 [...] Generic Conversion, MD PCP - General 12/28/10 , Generic Conversion, MD PCP - General 12/05/10 documented as of this encounter
--- OUTSIDE RECORDS SUMMARY | 2024-09-10 03:50 | XMS_ITS | Encounter Summary ---
Author Organization [facility] Address [facility]6 [facility]. [place], [place] [phone] [place], [place] [phone] Care Team Providers Care Sales Representative Graphic Art Name Role Phone Md Generic Conversion Primary [...] Generic Conversion MD Primary Care Provider Unavailable None, Provider Primary Care Provider Unavaila ble Encounter Details Date Type Department Care Team (Late st Contact Info) Description 12/05/2010 Abstract [facility] [address] [place], [place] [address] Alexis Justice MD [address] [facility] [address] [place] [address] Social History Tobacco Use Types Packs/Day Years Used Date Smoking Tobacco: Never Assessed Sex and Gender Information Value Date Recorded Sex Assigned at Not on file Legal Sex Male 10:39 PM CDT Gender Identity Not on file Sexual Orientation Not on file documented as of this encounter Plan of Treatment Not on file documented as of this encounter Visit Diagnoses Diagnosis Benign neoplasm of stomach documented in this encounter Care Teams Sales Representative Graphic Art Relationship Specialty Start Date End Date Md [...] Generic Conversion, MD PCP - General 05/28/11 Md Generic Conversion, MD PCP - General 03/11/11 Md Generic Conversion, MD PCP - General 02/06/11 Md Generic Conversion, MD PCP - General 12/28/10 Md Generic Conversion, MD PCP - General 12/05/10 None, Provider, PCP - General 06/03/18 08/24/19 documented as of this encounter
--- OUTSIDE RECORDS SUMMARY | 2024-09-10 03:50 | XMS_ITS | Encounter Summary ---
Author Organization [facility] Address [facility]6 [facility]. [place], [place] [address] [place], [place] [phone] Care Team Providers Care Turret Lathe Set Up Operator Name Role Phone Md [...] Care Team (Late st Contact Info) Description 06/02/2010 Emergency [facility] [place] [address] Ester Kennedy MD [address] [place] [address] Social History Tobacco Use Types Packs/Day Years [...] on filedocumented in this encounter Care Teams Turret Lathe Set Up Operator Relationship Specialty Start Date End Date Md, Generic Conversion, MD PCP - General 02/20/17 Md, Generic Conversion, [...] PCP - General 04/12/1207/06 Md, Generic Conversion, PCP - General 11/02/11 Md, Generic Conversion, MD PCP - General 10/06/11 Md, Generic Conversion, MD PCP - General 05/28/11 Md, Generic Conversion, MD PCP - General 03/11/11 Md, Generic Conversion, MD PCP - General 02/06/11 Md, Generic Conversion, MD PCP - General 12/28/10 Md, Generic Conversion, MD PCP - General 12/05/10 Md, Generic Conversion, PCP - General 11/23/10 Md, Generic Conversion, PCP - General 11/22/10 Md, Generic Conversion, MD PCP - General 11/15/10 Md, Generic Conversion, PCP - General 11/04/10 Md, Generic Conversion, MD PCP - General 09/24/10 documented as of this encounter
--- OUTSIDE RECORDS SUMMARY | 2024-09-10 03:50 | XMS_ITS | Encounter Summary ---
Author Organization [facility] Address Critical access hospital6 [facility]. [place] [phone] [place] [address] Care Team Providers Care Explosives Handler Name Role Phone Md Generic Conversion Primary [...] Department Care Team (Latest Contact Info) Description 02/19/2014 Abstract [facility] Social History Tobacco Use Types Packs/Day Years Used Date Smoking Tobacco: Never Assessed Sex and Gender Information Value Date Recorded Sex Assigned at Not on file Legal Sex Male 10:39 PM CDT Gender Identity Not on file Sexual Orientation Not on file documented as of this encounter Progress Notes * Generic Conversion MD Fermin - 02/19/2014 3:26 PM CDT Message Message: Patient called and stated that he spoke with Dr. Costello while he was acetaldehyde converter operator, about some sx that he was having. And he also stated that he took his Metformin 3 hours ago today and he still feels a little funny, and he thinks that he should be on something else. Informed the patient that he will have to make an appt and sit with the physician and discuss the medical issues that he is having with the medication. Patient states that he think the medication is making him feel funny so he saidthat he was just going to stop taking the medication. Told to the patient that he has an upcoming appt with Dr. Costello on 02/22/2014 @ 1:45pm and suggest that that patient keep the appt, patient stated that he will keep the appt, but will no longer be taking the Metformin. MGREEN,RMA Signatures Electronically signed by : Sophia Lee MA; Feb 19 2014 3:36PM LAP HAND TOOL (Author) documented in this encounter Plan of Treatment Not on file documented as of this encounter Visit Diagnoses Not on filedocumented in this encounter Care Teams Explosives Handler Relationship Specialty Start Date End Date Md Generic Conversion, PCP - General 02/20/17 Md Generic Conversion, MD PCP - General 10/11/16 7 Md Generic [...]
--- OUTSIDE RECORDS SUMMARY | 2024-09-10 03:50 | XMS_ITS | Encounter Summary ---
Author Organization [facility] Address [facility]6 [facility]. [place], [place] [address] [place], [place] [phone] Care Team Providers Care Medicare Interviewer Name Role Phone Md Generic Conversion Primary [...] Care Team (Late st Contact Info) Description 02/06/2014 Abstract [facility] [place] [address] [facility], [address] [place] [address] Balta Costello MD [address] [place] [address] [place] [address] Social History Tobacco Use Types Packs/Day Years Used Date Smoking Tobacco: Never Assessed Sex and Gender Information Value Date Recorded Sex Assigned at Not on file Legal Sex Male 10:39 PM CDT Gender Identity Not on file Sexual Orientation Not on file documented as of this encounter Progress Notes * Generic Conversion MD Fermin - 02/06/2014 9:45 AM CDT 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 Comorbid Illnesses: hypertriglycemia. Disease Course and Complications:. There have been no previous episodes of diabetic ketoacidosis. Symptoms: Denies numbness of the feet, denies a foot ulcer, denies foot pain, denies vomiting and denies visual impairment. Associated symptoms include no polyuria and no polydipsia The patient presents with complaints of recent weight gain (reports weight gain, unable to give exact details). Home monitoring: The patient checks his blood sugars regularly. Fasting blood sugars: generally less than 120. Glycemic control has been good. Lifestyle: Diet: He does not have a healthy diet. He is on a diabetic diet but does not adhere to the diet. Diet problems: too high in calories, insufficient in fruit, insufficient in vegetables and needs elimination of junk food. (Eats all meals out )Weight Issues: He has weight concerns.Exercise: He does not exercise regularly.Smoking: He does not use tobacco.Alcohol: He denies alcohol use. Review of Systems Focused-Male: Constitutional: Normal. ENT: earache. Cardiovascular: (States had palpitations yesterday, occassionally feels dizzy). Respiratory: Normal. Gastrointestinal: (reports diverticulitis and colon pain). Genitourinary: Normal. Integumentary: Normal. Musculoskeletal: Normal. Neurological: dizziness, but no limb weakness, no fainting and no difficulty walking. Psychiatric: anxiety. no ideation The patient presents with complaints of depression (Reports loss of pleasure in life. Has been on Celexa for 2 weeks. He acknowledges the need for daily dosing and need for therapuetic level to achieve affect) Active Problems 1. Abdominal pain (789.00) (R10.9) 2. Abnormal liver function test (790.6) (R79.89) 3. Anxiety (300.00) (F41.9) 4. Asthma (493.90) (J45.909) 5. Atypical chest pain (786.59) (R07.89) 6. Diabetes mellitus (250.00) (E11.9) 7. Diverticulosis of colon (562.10) (K57.30) 8. GERD (gastroesophageal reflux disease) (530.81) (K21.9) 9. Hyperglycemia (790.29) (R73.9) 10. Hyperlipidemia (272.4) (E78.5) 11. Hypertension (401.9) (I10) 12. Joint swelling (719.00) (M25.40) Current Meds 1. ALPRAZolam 2 MG Oral Tablet; TAKE 1 TABLET 3 TIMES DAILY NEEDED and 1/2 tab at night; Therapy: 15Jan2014 to (Last Rx:15Jan2014) Ordered 2. Citalopram Hydrobromide 20 MG Oral Tablet; Take 1 tablet daily; Therapy: 15Jan2014 to (Evaluate:[id number]); Last Rx:15Jan2014 Ordered 3. Claritin 10 MG Oral Capsule; Therapy: (Recorded:[id number]) to Recorded 4. Flonase SUSP; Therapy: (Recorded:[id number]) to Recorded 5. Hyoscyamine Sulfate 0.125 MG Oral Tablet; TAKE 1 TABLET 3-4 TIMES DAILY NEEDED; Therapy: 15Jan2014 to (Evaluate:[id number]); Last Rx:15Jan2014 Ordered 6. MetFORMIN HCl - 500 MG Oral Tablet; Take 1 tablet twice daily; Therapy: 15Jan2014 to (Evaluate:85Yiv0627); Last Rx:15Jan2014 Ordered 7. PriLOSEC 40 MG Oral Capsule Delayed Release; Therapy: (Recorded:[id number]) to Recorded 8. Tylenol TABS; Therapy: (Recorded:[id number]) to Recorded 9. Xanax 2 MG Oral Tablet; Therapy: (Recorded:37Rsp1012) to Recorded Allergies 1. Bactrim DS TABS 2. Levaquin TABS 3. Percocet TABS 4. Sulfa Drugs 5. Contrast Dye Assessment 1. Diabetes mellitus (250.00) (E11.9) Discussion/Summary Discussion Summary: Initial visit to assist in management of newly diagnosed DMII Patient extremelyanxious, checking blood sugars multiple times/day. States currently living in hotels, eats at restaurants, and trying to add fruits and vegetables; making excuses for poor diet. States he has episodes of diaphoresis and dizziness- presented these complaints while in office, BS was 100. Explained basic disease process of DM along with potential compilations of poorly controlled blood sugars. Explained normal nondiabetic blood sugar is 70 - 100, and a well controlled diabetic's A1c is 7 or less. Reviewed his A1c of 6.8 as not uncontrolled. Also explained DM at this time can be managed with diet and exercise. Instructed on importance of daily exercise and recommended starting walks 2x/day 10 minutes each and increase as tolerated to reach goal of 150 minutes/week. Reviewed food choices and importance of portion control. Introduced plate method for portion control and provided and reviewed carb counting. Stressed importance of dietary fibers, especially with fruits and vegetables. He offers many excuses for not including this in his diet - primarily his living situation. I have suggested purchasing fresh fruit and vegetables which do not required refrigeration - finances are not an issue, patient carries and displays large amount mosquera. I've reviewed SXS of hypoglycemia and provided handouts. Instructed to monitor FBS daily, and only if hypoglycemia symptoms occur. Advised that he needs to treat hypoglycemia only if BS < 70 Plan: Work on diet and exercise. Continue use of Metformin as ordered. Practice control over compulsion to constantly check blood sugars. Make appointment with Dr. Costello regarding c/o ear trouble. See me in 2 weeks for further education. Goal: Understanding of DM and comfort in management. Maintain or decrease A1c Barriers: Anxiety, living situation, social situation Signatures Electronically signed by : Chyna Jimenez R.N.; Feb 06 2014 7:54AM GRAIN COMMODITY MANAGER (Author) Electronically signed by : Chyna Jimenez R.N.; Feb 06 2014 7:54AM GRAIN COMMODITY MANAGER (Author) documented in this encounter Plan of Treatment Not on file documented as of this encounter Visit Diagnoses Not on filedocumented in this encounter Care Teams Medicare Interviewer Relationship Specialty Start Date End Date Alina Christensen MD PCP - General 02/20/17 Alina Christensen MD PCP - General 10/11/16 7 Alina Christensen MD PCP - General 07/19/16 Alina Christensen MD PCP - General 05/06/16 Alina Christensen MD PCP - General 01/23/16 Alina Christensen MD PCP - General 11/27/15 Alina Christensen MD PCP - General 11/13/15 Alina Christensen MD PCP - General 09/20/15 6 Md, [...]
--- OUTSIDE RECORDS SUMMARY | 2024-09-10 03:50 | XMS_ITS | Encounter Summary ---
Author Organization [facility] Address [address] [place] [address]. [place], [place] [address] [place], [place] [id number] Care Team Providers Care Virtualization Engineer Name Role Phone Md Generic Conversion [...] Care Team (Late st Contact Info) Description 02/08/2014 Abstract [facility] Family Medicine - [place] [address] [facility], [address] [place] [address] Balta Costello MD [address] [place] [address] Social History Tobacco Use Types Packs/Day Years Used Date Smoking Tobacco: Never Assessed Sex and Gender Information Value Date Recorded Sex Assigned at Not on file Legal Sex Male 10:39 PM CDT Gender Identity Not on file Sexual Orientation Not on file documented as of this encounter Last Filed Vital Signs Vital Sign Reading Time Taken Comments Blood Pressure 132/88 02/08/2014 10:35 AM CDT Pulse 98 02/08/2014 10:35 AM CDT Temperature - - Respiratory Rate - - Oxygen Saturation - - Inhaled Oxygen Concentration - - Weight 132 kg (291 lb) 02/08/2014 10:35 AM CDT Height 188 cm (6' 2 ) 02/08/2014 10:35 AM CDT Body Mass Index 37.36 02/08/2014 10:35 AM CDT documented in this encounter Progress Notes * Generic Conversion MD Fermin - 02/08/2014 10:45 AM CDT Reason For Visit pain/tingling in feet Reason For Visit: Acute Visit Chief Complaint Chief Complaint Free Text: pain/tingling in feet. History of Present Illness HPI Free Text: Patient comes in for significant concerns over burning and tingling in his feet. He is aware that this can happen with diabetes. he is reasonably concerned about this. Patient is a new onset diabeticwith HBA1c 6.9. He states that at 1/2 tab of metformin 500 mg once daily (IR) it's tearing up his stomach as well. he does have a hx of possible IBS and anxiety. He also expresses his concern over the significant sweating he has been doing over his brow. He does suffer from quite significant anxiety and is under what seems to be great duress with his current living situations, family stressors, and worries. It does not help that he is a new onset diabetic. Review of Systems Focused-Male: See HPI for pertinent positives. Active Problems 1. Abdominal pain (789.00) (R10.9) 2. Abnormal liver function test (790.6) (R79.89) 3. Anxiety (300.00) (F41.9) 4. Asthma (493.90) (J45.909) 5. Atypical chest pain (786.59) (R07.89) 6. Diabetes mellitus (250.00) (E11.9) 7. Diverticulosis of colon (562.10) (K57.30) 8. GERD (gastroesophageal reflux disease) (530.81) (K21.9) 9. Hyperglycemia (790.29) (R73.9) 10. Hyperlipidemia (272.4) (E78.5) 11. Hypertension (401.9) (I10) 12. Joint swelling (719.00) (M25.40) Past Medical History Patient indicats no significant past medical history. Surgical History Patient indicates no past surgical history. Family History Patient indicates no significant family history of disease. Social History ?? No alcohol use ?? Non-smoker (V49.89) (Z78.9) Current Meds 1. ALPRAZolam 2 MG Oral Tablet; TAKE 1 TABLET 3 TIMES DAILY NEEDED and 1/2 tab at night; Therapy: 15Jan2014 to (Last Rx:15Jan2014) Ordered Rx By: Balta Costello; Dispense: 0 Days ; #:135 Tablet; Refill: 0; For: Anxiety; LAURA = N; Print Rx 2. Citalopram Hydrobromide 20 MG Oral Tablet; Take 1 tablet daily; Therapy: 15Jan2014 to (Evaluate:[id number]); Last Rx:[id number] Ordered Rx By: Balta Costello; Dispense: 30 Days ; #:30 Tablet; Refill: 2; For: Anxiety; LAURA = N; Print Rx; Msg to Pharmacy: 1/2 tab daily for 2-3 weeks. 3. Claritin 10 MG Oral Capsule; Therapy: (Recorded:04Jan2014) to Recorded Dispense: 0 Days ; #: Sufficient CAPS; Refill: 0; LAURA = N; Record; Last Updated By: Sophia Lee; 01/04/2014 1:50:26 PM 4. Flonase SUSP; Therapy: (Recorded:04Jan2014) to Recorded Dispense: 0 Days ; #: Sufficient SUSP; Refill: 0; LAURA = N; Record; Last Updated By: Sophia Lee; 01/04/2014 1:50:26 PM 5. Hyoscyamine Sulfate 0.125 MG Oral Tablet; TAKE 1 TABLET 3-4 TIMES DAILY NEEDED; Therapy: 15Jan2014 to (Evaluate:[id number]); Last Rx:[id number] Ordered Rx By: Balta Costello; Dispense: 30 Days ; #:120 Tablet; Refill: 2; For: Abdominal pain; LAURA = N; Print Rx 6. MetFORMIN HCl - 500 MG Oral Tablet; Take 1 tablet twice daily; Therapy: 15Jan2014 to (Evaluate:[id number]); Last Rx:[id number] Ordered Rx By: Balta Costello; Dispense: 30 Days ; #:60 Tablet; Refill: 3; For: Diabetes mellitus; LAURA = N; Print Rx 7. PriLOSEC 40 MG Oral Capsule Delayed Release; Therapy: (Recorded:04Jan2014) to Recorded Dispense: 0 Days ; #: Sufficient CPDR; Refill: 0; LAURA = N; Record; Last Updated By: Sophia Lee; 01/04/2014 1:50:26 PM 8. Tylenol TABS; Therapy: (Recorded:04Jan2014) to Recorded Dispense: 0 Days ; #: Sufficient TABS; Refill: 0; LAURA = N; Record; Last Updated By: Sophia Lee; 01/04/2014 1:50:26 PM Allergies 1. Bactrim DS TABS Recorded By: Peggy Camacho; 01/04/2014 1:54:48 PM 2. Levaquin TABS Recorded By: Peggy Camacho; 01/04/2014 1:54:48 PM 3. Percocet TABS Recorded By: Peggy Camacho; 01/04/2014 1:54:48 PM 4. Sulfa Drugs Recorded By: Peggy Camacho; 01/04/2014 1:54:48 PM 5. Contrast Dye Recorded By: Peggy Camacho; 01/04/2014 1:54:48 PM Vitals Vital Signs [Data Includes: Current Encounter] Recorded by : Peggy Camacho at [id number] 10:35AM Heart Rate 98 Respiration 14 Systolic 132 Diastolic 88 Height 6 ft 2 in Weight 291 lb BMI Calculated 37.36 BSA Calculated 2.55 Physical Exam Constitutional General appearance: No acute distress, well appearing and well nourished. Head and Face Head and face: Normal. Pulmonary Respiratory effort: No increased work of breathing or signs of respiratory distress. Auscultation of lungs: Clear to auscultation. Cardiovascular Auscultation of heart: Normal rate and rhythm, normal S1 and S2, no murmurs. No carotid bruits. Psychiatric Orientation to person, place and time: Normal. Mood and affect: Abnormal. Casually dressed, down appearing and tired. Assessment 1. Paresthesias (782.0) (R20.2) 2. Anxiety (300.00) (F41.9) Plan 1. Changed: From Citalopram Hydrobromide 20 MG Oral Tablet Take 1 tablet daily To Citalopram Hydrobromide 40 MG Oral Tablet TAKE 1 TABLET BY MOUTH EVERY DAY Rx By: Balta Costello; Dispense: 30 Days ; #:30 Tablet; Refill: 6; For: Anxiety; LAURA = N; Print Rx; Msg to Pharmacy: 1/2 tab daily for 2-3 weeks. 2. Renew: ALPRAZolam 2 MG Oral Tablet; TAKE 1 TABLET 3 TIMES DAILY NEEDED and 1/2 tab at night Rx By: Balta Costello; Dispense: 0 Days ; #:135 Tablet; Refill: 0; For: Anxiety; LAURA = N; Print Rx; Last Updated By: Peggy Camacho; 02/08/2014 11:48:41 AM 3. Start: Amitriptyline HCl - 25 MG Oral Tablet; TAKE 1 TABLET AT BEDTIME Rx By: Balta Costello; Dispense: 30 Days ; #:30 Tablet; Refill: 0; For: Anxiety, Paresthesias; LAURA = N; Print Rx Discussion/Summary Discussion Summary Free Text: 1. Paresthesias: discussed that I do not believe this to be diabetic paresthesias, but reasonable treatment with elavil can help with any paresthesias (if this is the case). it may also help with sleep, abd discomfort from IBS and similar conditions and some pain. patient is to try this at night. initially i suggested stopping metformin for 2 weeks while he started this treatment, but then decided to have him continue the metformin given his seeming concern for the high blood sugars. 2. Anxiety: increase the celexa to 40 mg daily. he has been on this in the past without much effectand I would like to change him to lexapro but given his lack of funds or insurance he cannot truly afford this. refilled xanax for now. encouraged patient to talk to people about his struggles, whichmay help his significant anxiety. pt to call back in 1 week for update of symptoms and if all goes well, then follow up in 4 weeks. star care packet given to the patient to fill out so that he can better afford the cost of the office visits. It is later noted by this examiner that the patient had come to the office and reportedly refused to pay the visit, opting to speak with the physician. during the exam he alluded to not being chargedfor the visit. At the time, I was unaware of what transpired at the front office. Again, patient isapplying for star care through our organization. This may help to offset some of the patient's cost. Signatures Electronically signed by : Balta Costello M.D.; 2014 2:20PM OCCUPATIONAL HEALTH NURSING DIRECTOR (Author) documented in this encounter Plan of Treatment Not on file documented as of this encounter Visit Diagnoses Not on filedocumented in this encounter Care Teams Virtualization Engineer Relationship Specialty Start Date End Date Md Generic Conversion, PCP - General 02/20/17 Md Generic Conversion, PCP - General 10/11/16 7 Md Generic Conversion, PCP - General 07/19/16 Md Generic Conversion, PCP - General 05/06/16 , Generic Conversion, PCP - General 01/23/16 Md, [...]
--- OUTSIDE RECORDS SUMMARY | 2024-09-10 03:50 | XMS_ITS | Encounter Summary ---
Author Organization [facility] Address [facility]. [place], [place] [address] [place] [address] Care Team Providers Care Hair And Makeup Designer Name Role Phone Md Generic Conversion Primary [...] Care Team (Late st Contact Info) Description 06/16/[address] [facility] [place] [address] [place] [address] Md Generic MD Ivis Social History Tobacco [...] on filedocumented in this encounter Care Teams Hair And Makeup Designer Relationship Specialty Start Date End Date Md [...]
--- OUTSIDE RECORDS SUMMARY | 2024-09-10 03:50 | XMS_ITS | Encounter Summary ---
Author Organization [facility] Address [address] [place] [address]. [place] [phone] [place] [address] Care Team Providers Care Destination Specialist Name Role Phone Md Generic Conversion [...] Department Care Team (Latest Contact Info) Description 12/29/2013 Abstract [facility] Social [...] on filedocumented in this encounter Care Teams Destination Specialist Relationship Specialty Start Date End Date [...]
--- OUTSIDE RECORDS SUMMARY | 2024-09-10 03:50 | XMS_ITS | Encounter Summary ---
Author Organization [facility] Address [address] [place] [address]. [place], [place] [address] [place], [place] [phone] Care Team Providers Care Referral Manager Name Role Phone Md Generic Conversion [...] Care Team (Late st Contact Info) Description 03/23/2014 Abstract [facility] Family Medicine - [place] [address] [facility], [address] [place] [address] Balta Costello MD [address] [place] [address] Social History Tobacco Use Types Packs/Day Years Used Date Smoking Tobacco: Never Assessed Sex and Gender Information Value Date Recorded Sex Assigned at Not on file Legal Sex Male 10:39 PM CDT Gender Identity Not on file Sexual Orientation Not on file documented as of this encounter Last Filed Vital Signs Vital Sign Reading Time Taken Comments Blood Pressure 122/86 03/23/2014 11:20 AM CDT Pulse 84 03/23/2014 11:20 AM CDT Temperature - - Respiratory Rate - - Oxygen Saturation - - Inhaled Oxygen Concentration - - Weight 133.4 kg (294 lb) 03/23/2014 11:20 AM CDT Height 188 cm (6' 2 ) 03/23/2014 11:20 AM CDT Body Mass Index 37.75 03/23/2014 11:20 AM CDT documented in this encounter Progress Notes * Generic Conversion MD Fermin - 03/23/2014 11:15 AM CDT Reason For Visit Chronic Recheck Visit Chief Complaint Pt is here for follow up on diabetes. Did go to eye doctor for blurred vision in right eye because of glass being broke. No diabetes in eyes. Also having problems with sinuses. History of Present Illness 1. Right eye Abrasion: since last visit he was seen by the water fitness instructor after getting hydrogen peroxide in the right eye and further shattered plates may have also gotten further abrasion to righteye. he also is having blurry vision in left eye and was given patanol to treat the suspected allergy symptoms in the left eye. he states the vision is somewhat worse. 2. DM2: he state that he tried the januvia and he states his sugars have fluctuated significantly and he worries that it's the medication that is causing hypoglycemia (67-70's). it can fluctuate as far as 205 at times as well. His blood sugar readings in his diary range from the 67-110's at times, and other times it is higher in the 150-205. he states that he has abnormal sensations in the arms and wonders if januvia is right for him. he states a friend suggested another medication that possiblystarts with a g (glyburide, or glipizide?). 3. HTN: well controlled on medications! he is taking the lisinopril 10 mg daily. he is still havingheadaches even after taking the amoxil given to him (called in reportedly by automation lead staff from [employer]?). he has a hx of chronic sinus congestion and reports that he is on flonase routinely. he further states that zyrtec does not work, and brennon does make him feel funny and he does not like to take this. 4. He finally reports that he may be a little less anxious. he is taking citaprolam 40 mg daily andis only taking wellbutrin 75 mg daily (IR). he needs a refill of xanax. he has been looking/inquiring about counseling and is awaiting some call backs. Review of Systems See HPI for pertinent positives. Active Problems 1. Abdominal pain (789.00) (R10.9) 2. Abnormal liver function test (790.6) (R79.89) 3. Acute otitis media (382.9) (H66.90) 4. Anxiety (300.00) (F41.9) 5. Asthma (493.90) (J45.909) 6. Atypical chest pain (786.59) (R07.89) 7. Conjunctivitis (372.30) (H10.9) 8. Diabetes mellitus (250.00) (E11.9) 9. Diverticulosis of colon (562.10) (K57.30) 10. GERD (gastroesophageal reflux disease) (530.81) (K21.9) 11. Hyperglycemia (790.29) (R73.9) 12. Hyperlipidemia (272.4) (E78.5) 13. Hypertension (401.9) (I10) 14. Joint swelling (719.00) (M25.40) 15. Obesity (278.00) (E66.9) 16. Paresthesias (782.0) (R20.2) 17. Sinusitis (473.9) (J32.9) Social History ?? No alcohol use ?? Non-smoker (V49.89) (Z78.9) Current Meds 1. ALPRAZolam 2 MG Oral Tablet; TAKE 1 TABLET 3 TIMES DAILY NEEDED and 1/2 tab at night; Therapy: 15Jan2014 to (Last Rx:05Mar2014) Ordered 2. Amitriptyline HCl - 25 MG Oral Tablet; TAKE 1 TABLET AT BEDTIME; Therapy: 08Feb2014 to (Evaluate:10Mar2014); Last Rx:08Feb2014 Ordered 3. BuPROPion HCl - 100 MG Oral Tablet; TAKE 1 TABLET 3 times daily; Therapy: 05Mar2014 to (Evaluate:[id number]) Requested for: 05Mar2014; Last Rx:05Mar2014 Ordered 4. Citalopram Hydrobromide 40 MG Oral Tablet; TAKE 1 TABLET BY MOUTH EVERY DAY; Therapy: 15Jan2014 to (Evaluate:[id number]); Last Rx:08Feb2014 Ordered 5. Claritin 10 MG Oral Capsule; Therapy: (Recorded:04Jan2014) to Recorded 6. Fluticasone Propionate 50 MCG/ACT Nasal Suspension (Flonase); USE 1 TO 2 SPRAYS IN EACH NOSTRIL ONCE DAILY Requested for: 05Mar2014; Last Rx:05Mar2014 Ordered 7. Hyoscyamine Sulfate 0.125 MG Oral Tablet; TAKE 1 TABLET 3-4 TIMES DAILY NEEDED; Therapy: 15Jan2014 to (Evaluate:[id number]); Last Rx:15Jan2014 Ordered 8. Januvia 100 MG Oral Tablet; TAKE 1 TABLET ONCE DAILY; Therapy: 27Feb2014 to (Evaluate:27Jun2014); Last Rx:27Feb2014 Ordered 9. Pdtzewtt-Dkbxaisav-KW 3.5-55852-8 Ophthalmic Suspension; INSTILL 1 DROP IN BOTH EYES EVERY 4 HOURS DAILY; Therapy: 02Mar2014 to (Last Rx:02Mar2014) Requested for: 02Mar2014 Ordered 10. Omeprazole 40 MG Oral Capsule Delayed Release (PriLOSEC); TAKE 1 CAPSULE Daily Requested for: 05Mar2014; Last Rx:05Mar2014 Ordered 11. Promethazine HCl - 25 MG Oral Tablet; TAKE 1 TABLET 3 TIMES DAILY NEEDED; Last Rx:05Mar2014 Ordered 12. Tylenol TABS; Therapy: (Recorded:04Jan2014) to Recorded Allergies 1. Bactrim DS TABS 2. Cephalexin Monohydrate TABS 3. Doxycycline Monohydrate CAPS 4. Levaquin TABS 5. Percocet TABS 6. Sulfa Drugs 7. Contrast Dye Vitals Recorded by : Landy Keyes at [id number] 11:20AM Heart Rate 84 Respiration 18 Systolic 122 Diastolic 86 Height 6 ft 2 in Weight 294 lb BMI Calculated 37.75 BSA Calculated 2.56 Physical Exam Constitutional General appearance: No acute distress, well appearing and well nourished. APPEARS SOMEWHAT TIRED, BUT POSSIBLY VERY MILDLY CALMER THAN BEFORE. Head and Face Head and face: Normal. Ears, Nose, Mouth, and Throat External inspection of ears and nose: Normal. LEFT EAR ERYTHEMA HAS IMPROVED (MAYBE TRACE AT BEST NOW). Otoscopic examination: Tympanic membranes translucent with normal light reflex. Canals patent without erythema. Nasal mucosa, septum, and turbinates: Abnormal. BILATERAL NASAL CONGESTION WITH RIGHT NARE ERYTHEMABUT LEFT NARE IS WITHOUT ERYTHEMA. Oropharynx: Normal with no erythema, edema, exudate or lesions. Pulmonary Respiratory effort: No increased work of breathing or signs of respiratory distress. Auscultation of lungs: Clear to auscultation. Cardiovascular Auscultation of heart: Normal rate and rhythm, normal S1 and S2, no murmurs. Psychiatric Orientation to person, place and time: Normal. Mood and affect: Abnormal. NOTED ABOVE, APPEARS POSSIBLY JUST SLIGHTLY MORE CALM!. Assessment 1. Acute sinusitis (461.9) (J01.90) 2. Hypertension (401.9) (I10) 3. Anxiety (300.00) (F41.9) 4. Diabetes mellitus (250.00) (E11.9) Plan 1. Start: Ciprofloxacin HCl - 500 MG Oral Tablet; Take 1 tablet twice daily Rx By: Balta Costello; Dispense: 12 Days ; #:24 Tablet; Refill: 0; For: Acute sinusitis; LAURA = N; Print Rx 2. Renew: ALPRAZolam 2 MG Oral Tablet; [...] GERD (gastroesophageal reflux disease); LAURA = N; Record; Last Updated By: Landy Keyes; 03/23/2014 1:08:59 PM 4. Basic Metabolic Prof ( BMP ) Status: Active Requested for: [id number] Perform: [facility] Due: [id number]; Ordered; For: Hypertension; Ordered By: Balta Costello Discussion/Summary 1. DM2: reviewed s/e of januvia with him. discussed that I would avoid glipizide, glyburide and thelike as this can cause real hypoglycemia. Januvia is not a drug that will do so. provided him a 4 week supply of tablet form januvia. if he would like he can try cutting down to 50 mg daily and see if this does better for him. he does have uncontrolled diabetes but it is not extremely uncontrolled at this point. discussed doing BMP some time in 4 weeks because he has been on the januvia and lisinopril for at least a month now and we have to monitor his kidney function. he acknowledged. 2. HTN: controlled. plan to continue meds and repeat labs. 3. Anxiety: trial of increasing the wellbutrin to 75 mg BID and continue the celexa 50 mg daily. heis not on the amitriptyline any longer per report. monitor for now. pend further report of counseling. 4. RUSSO: samples of nasonex and patanase given in an attempt to see if this improves the nasal congestion. cipro also given to see if a different abx may help as amoxil reportedly did not do anything for him. he states he may have to just go back to the ENT. f/u in 4 weeks for re-evaluation. Signatures Electronically signed by : Balta Costello M.D.; Mar 24 2014 6:47PM BENEFITS SPECIALIST (Author) documented in this encounter Plan of Treatment Not on file documented as of this encounter Visit Diagnoses Not on filedocumented in this encounter Care Teams Referral Manager Relationship Specialty Start Date End Date [...]
--- OUTSIDE RECORDS SUMMARY | 2024-09-10 03:50 | XMS_ITS | Encounter Summary ---
Author Organization [facility] Address [facility]. [place], [place] [phone] [place], [place] [id number] Care Team Providers Care First Aid Teacher Name Role Phone Md Generic Conversion Primary [...] Care Team (Late st Contact Info) Description 06/12/2007 Emergency [facility] [place] [address] Brendon Beltre MD [address] [address] Social History Tobacco Use Types Packs/Day Years [...] on filedocumented in this encounter Care Teams First Aid Teacher Relationship Specialty Start Date End Date Md Generic Conversion, PCP - General 02/20/17 Md Generic Conversion, MD PCP - General 10/11/16 7 Md Generic Conversion, MD PCP - General 07/19/16 [...] Generic Conversion, MD PCP - General 11/04/10 Md, Generic Conversion, MD PCP - General 09/24/10 documented as of this encounter
--- OUTSIDE RECORDS SUMMARY | 2024-09-10 03:50 | XMS_ITS | Encounter Summary ---
Author Organization [facility] Address [address] [place] [address]. [place] [phone] [place], [place] [phone] Care Team Providers Care Business Development Associate Name Role Phone Md Generic Conversion Primary [...] Care Team (Late st Contact Info) Description 02/02/[address] [facility] [facility] [address] [place] [address] Social History Tobacco Use Types Packs/Day Years [...] on filedocumented in this encounter Care Teams Business Development Associate Relationship Specialty Start Date End Date Alina Christensen MD PCP - General 02/20/17 Md Generic MD Ivis PCP - General 10/11/16 7 Md Generic MD Ivis PCP - General 07/19/16 Md Generic MD [...]
--- OUTSIDE RECORDS SUMMARY | 2024-09-10 03:50 | XMS_ITS | Encounter Summary ---
Author Organization [facility] Address [facility]. [place], [place] [address] [place] [address] Care Team Providers Care Director Dermatology Name Role Phone Md Generic Conversion Primary [...] Care Team (Late st Contact Info) Description 12/24/2008 Emergency [facility] [place] [address] Prosper Tellez MD [address] [place] [address] [place] [address] Social History Tobacco Use Types Packs/Day Years [...] filedocumented in this encounter Care Teams Director Dermatology Relationship Specialty Start Date End Date Md [...] Md, Generic Conversion, PCP - General 11/04/10 3 Md, Generic Conversion, MD PCP - General 09/24/10 documented as of this encounter
--- OUTSIDE RECORDS SUMMARY | 2024-09-10 03:50 | XMS_ITS | Encounter Summary ---
Author Organization [facility] Address [address] [place] [address]. [place] [phone] [place] [address] Care Team Providers Care Engine House Helper Name Role Phone Md Generic Conversion Primary [...] Care Team (Late st Contact Info) Description 12/29/[address] [facility] [address] [place] [address] Adin Mayes MD [address] [address] Social History Tobacco Use Types Packs/Day Years Used Date Smoking Tobacco: Never Assessed Sex and Gender Information Value Date Recorded Sex Assigned at Not on file Legal Sex Male 10:39 PM CDT Gender Identity Not on file Sexual Orientation Not on file documented as of this encounter Plan of Treatment Not on file documented as of this encounter Visit Diagnoses Diagnosis Infective otitis externa Infective otitis externa, unspecified documented in this encounter Care Teams Engine House Helper Relationship Specialty Start Date End Date Alina Christensen MD PCP - General 02/20/17 Md, Generic [...] Md, Generic Conversion, PCP - General 07/30/1409/09 , Generic Conversion, PCP - General 06/09/1407/29 Balta Costello, PCP - General 02/02/14 06/08/14 Balta Costello, PCP - General 12/29/13 02/01/14 documented as of this encounter
--- OUTSIDE RECORDS SUMMARY | 2024-09-10 03:50 | XMS_ITS | Encounter Summary ---
Author Organization [facility] Address [facility]. [place], [place] [address] [place] [address] Care Team Providers Care Bleacher Operator Name Role Phone Md Generic Conversion [...] Care Team (Late st Contact Info) Description 09/20/2007 Emergency [facility] [place] [address] Md Generic MD Ivis Social History Tobacco [...] on filedocumented in this encounter Care Teams Bleacher Operator Relationship Specialty Start Date End Date [...]
--- OUTSIDE RECORDS SUMMARY | 2024-09-10 03:50 | XMS_ITS | Encounter Summary ---
Author Organization [facility] Address [address] [place] [address]. [place], [place] [address] [place], [place] [phone] Care Team Providers Care Cake Stripper Name Role Phone Md Generic Conversion Primary [...] Care Team (Late st Contact Info) Description 01/31/2014 Abstract [facility] Family Medicine - [address], [address] [place] [id number] Social History Tobacco Use Types Packs/Day Years Used Date Smoking Tobacco: Never Assessed Sex and Gender Information Value Date Recorded Sex Assigned at Not on file Legal Sex Male 10:39 PM CDT Gender Identity Not on file Sexual Orientation Not on file documented as of this encounter Miscellaneous Notes * Letter - Generic Conversion MD Fermin - 01/31/2014 2:12 PM CDT Message No Show/Cancellation Note: Appointment Status: The patient no showed for his/her appointment. Patient Communication: The patient was called regarding the missed appointment. today. Reason For Missed Appointment: No excuse. Result: The patient rescheduled his/her appointment. Message: This is 2nd No show. I've re-explained importance of DM education. Appt rescheduled 02/02/14 Signatures Electronically signed by : Chyna Jimenez R.N.; Jan 31 2014 2:13PM SUPERVISOR PHOSPHATIC FERTILIZER (Author) documented in this encounter Plan of Treatment Not on file documented as of this encounter Visit Diagnoses Not on filedocumented in this encounter Care Teams Cake Stripper Relationship Specialty Start Date End Date Md [...] Costello, PCP - General 02/02/14 06/08/14 Balta Costello MD PCP - General 12/29/13 02/01/14 documented as of this encounter
--- OUTSIDE RECORDS SUMMARY | 2024-09-10 03:50 | XMS_ITS | Encounter Summary ---
Author Organization [facility] Address [facility]. [place], [place] [phone] [place], [place] [id number] Care Team Providers Care Milling Machine Tender Name Role Phone Md Generic Conversion Primary [...] Care Team (Late st Contact Info) Description 04/12/[address] [facility] [place] [address] Alina Christensen MD Social History Tobacco Use [...] on filedocumented in this encounter Care Teams Milling Machine Tender Relationship Specialty Start Date End Date Md [...]
--- OUTSIDE RECORDS SUMMARY | 2024-09-10 03:50 | XMS_ITS | Encounter Summary ---
Author Organization [facility] Address [address] [place] [address]. [place] [phone] [place] [address] Care Team Providers Care Elementary Supervisor Name Role Phone Md Generic Conversion [...] Care Team (Late st Contact Info) Description 10/06/2011 Emergency [facility] [place] [address] Alina Christensen MD Social History Tobacco Use [...] hemorrhage) documented in this encounter Care Teams Elementary Supervisor Relationship Specialty Start Date End Date [...] Generic Conversion, MD PCP - General 10/06/11 documented as of this encounter
--- OUTSIDE RECORDS SUMMARY | 2024-09-10 03:50 | XMS_ITS | Encounter Summary ---
Author Organization [facility] Address [address] [place] [address]. [place] [phone] [place] [address] Care Team Providers Care Television And Radio Repairer Name Role Phone Md Generic Conversion Primary [...] Care Team (Late st Contact Info) Description 02/27/2014 Abstract [facility] Family Medicine - [place] [address] [facility], [address] [place] [phone] Hema Durbin MD [address] [place] [address] Social History Tobacco Use Types Packs/Day Years Used Date Smoking Tobacco: Never Assessed Sex and Gender Information Value Date Recorded Sex Assigned at Not on file Legal Sex Male 10:39 PM CDT Gender Identity Not on file Sexual Orientation Not on file documented as of this encounter Last Filed Vital Signs Vital Sign Reading Time Taken Comments Blood Pressure 150/80 02/27/2014 11:58 AM CDT Pulse 98 02/27/2014 11:58 AM CDT Temperature - - Respiratory Rate - - Oxygen Saturation - - Inhaled Oxygen Concentration - - Weight 130.6 kg (288 lb) 02/27/2014 11:58 AM CDT Height 188 cm (6' 2 ) 02/27/2014 11:58 AM CDT Body Mass Index 36.98 02/27/2014 11:58 AM CDT documented in this encounter Progress Notes * Hema Durbin MD - 02/27/2014 11:45 AM CDT Chief Complaint Chief Complaint Free Text: Pt says he discontinued Metformin has been having tremors, chest pains, nervousness, and stiff muscles. Pt also has not been sleeping, hot, and over heated. History of Present Illness HPI Free Text: He is still not doing well as he has been very anxious and has not been able to sleep. He called last night and spoke to me for over an hour. He has been using celexa 40 mg po daily and xanax up to 7.5 mg po daily. He had lost his xanax and and then found it, but it had gotten wet and he cannot useit. He is very worried about not having medications with his panic attacks. He was started on elavil 25 mg po qHS. He has DM that is not well controlled at this time. He has been unable to tolerate metformin due toGI side effects. He has not tried the long acting metformin. He has a poor diet as he is currently homeless and is not able to eat well. He has a BP of 150/80 and he is not on any anti-hypertensives on this time and no AMELIA inhibitor. Hehas no RUSSO, no blurry vision or lightheadedness. He has obesity with a BMI of 36 and he is not really working on diet or exercise. Review of Systems Focused-Male: Constitutional: Normal. ENT: normal. Cardiovascular: Normal. Respiratory: Normal. Gastrointestinal: Normal. Genitourinary: Normal. Integumentary: Normal. Musculoskeletal: Normal. Neurological: Normal. Psychiatric: Normal. Active Problems 1. Abdominal pain (789.00) (R10.9) 2. Abnormal liver function test (790.6) (R79.89) 3. Anxiety (300.00) (F41.9) 4. Asthma (493.90) (J45.909) 5. Atypical chest pain (786.59) (R07.89) 6. Diabetes mellitus (250.00) (E11.9) 7. Diverticulosis of colon (562.10) (K57.30) 8. GERD (gastroesophageal reflux disease) (530.81) (K21.9) 9. Hyperglycemia (790.29) (R73.9) 10. Hyperlipidemia (272.4) (E78.5) 11. Hypertension (401.9) (I10) 12. Joint swelling (719.00) (M25.40) 13. Paresthesias (782.0) (R20.2) Past Medical History Patient indicats no significant past medical history. Surgical History Patient indicates no past surgical history. Family History Patient indicates no significant family history of disease. Social History ?? No alcohol use ?? Non-smoker (V49.89) (Z78.9) Current Meds 1. ALPRAZolam 2 MG Oral Tablet; TAKE 1 TABLET 3 TIMES DAILY NEEDED and 1/2 tab at night; Therapy: 15Jan2014 to (Last Rx:[id number]) Ordered Rx By: Balta Costello; Dispense: 0 Days ; #:135 Tablet; Refill: 0; For: Anxiety; LAURA = N; Print Rx; Last Updated By: Peggy Camacho; 02/08/2014 11:48:41 AM 2. Amitriptyline HCl - 25 MG Oral Tablet; TAKE 1 TABLET AT BEDTIME; Therapy: 08Feb2014 to (Evaluate:10Mar2014); Last Rx:[id number] Ordered Rx By: Balta Costello; Dispense: 30 Days ; #:30 Tablet; Refill: 0; For: Anxiety, Paresthesias; LAURA = N; Print Rx 3. Citalopram Hydrobromide 40 MG Oral Tablet; TAKE 1 TABLET BY MOUTH EVERY DAY; Therapy: 15Jan2014 to (Evaluate:[id number]); Last Rx:[id number] Ordered Rx By: Balta Costello; Dispense: 30 Days ; #:30 Tablet; Refill: 6; For: Anxiety; LAURA = N; Print Rx; Msg to Pharmacy: 1/2 tab daily for 2-3 weeks. 4. Claritin 10 MG Oral Capsule; Therapy: (Recorded:04Jan2014) to Recorded Dispense: 0 Days ; #: Sufficient CAPS; Refill: 0; LAURA = N; Record; Last Updated By: Sophia Lee; 01/04/2014 1:50:26 PM 5. Flonase SUSP; Therapy: (Recorded:04Jan2014) to Recorded Dispense: 0 Days ; #: Sufficient SUSP; Refill: 0; LAURA = N; Record; Last Updated By: Sophia Lee; 01/04/2014 1:50:26 PM 6. Hyoscyamine Sulfate 0.125 MG Oral Tablet; TAKE 1 TABLET 3-4 TIMES DAILY NEEDED; Therapy: [id number] to (Evaluate:[id number]); Last Rx:[id number] Ordered Rx By: Balta Costello; Dispense: 30 Days ; #:120 Tablet; Refill: 2; For: Abdominal pain; LAURA = N; Print Rx 7. PriLOSEC [...] [Data Includes: Current Encounter] Recorded by : Bertha Casillas at 27Feb2014 11:58AM Temperature 97.6 F Heart Rate 98 Respiration 14 Systolic 150 Diastolic 80 Height 6 ft 2 in Weight 288 lb BMI Calculated 36.98 BSA Calculated 2.54 Physical Exam Constitutional General appearance: No acute distress, well appearing and well nourished. Psychiatric Orientation to person, place and time: Normal. Mood and affect: Normal. Assessment 1. Anxiety (300.00) (F41.9) 2. Diabetes mellitus (250.00) (E11.9) 3. Hypertension (401.9) (I10) 4. Obesity (278.00) (E66.9) Plan 1. Start: LORazepam 2 MG Oral Tablet; TAKE 1 TABLET 3 TIMES DAILY NEEDED Rx By: Hema Durbin; Dispense: 7 Days ; #:21 Tablet; Refill: 0; For: Anxiety; LAURA = N; Print Rx 2. Follow-up PRN Outpatient Follow-up Status: Complete Done: 27Feb2014 12:29PM Ordered; For: Anxiety; Ordered By: Hema Durbin Performed: Due: [id number] 3. Start: Januvia 100 MG Oral Tablet; TAKE 1 TABLET ONCE DAILY Rx By: Hema Durbin; Dispense: 30 Days ; #:30 Tablet; Refill: 3; For: Diabetes mellitus; LAURA = N; Print Rx Discussion/Summary Discussion Summary Free Text: DM: He is not yet on an AMELIA or a statin and could not tolerate metformin. Will try januvia 100 mg po daily. Dysesthesia: he has tried the amitriptyline 25 mg po qHS with minimal benefit. Anxiety: He has been using celexa 40 mg po daily and has been using xanax 2 mg tid and 1/2 tabs po qHS. He cannot get in to see Dr. Amin or Dr. Carbajal. Will also write a script for generic wellbutrinto check prices. WIll try ativan 2 mg po q 8 hours PRN # 21 until his next visit with Dr. Costello. Obesity: Will need to work on diet and exercise, his current BMI is at 36. f/u with Dr. Costello. Signatures Electronically signed by : Hema Durbin M.D.; Feb 27 2014 12:30PM ETL TESTER (Author) documented in this encounter Plan of Treatment Not on file documented as of this encounter Visit Diagnoses Not on filedocumented in this encounter Care Teams Television And Radio Repairer Relationship Specialty Start Date End Date Md, [...]
--- OUTSIDE RECORDS SUMMARY | 2024-09-10 03:50 | XMS_ITS | Encounter Summary ---
Author Organization [facility] Address [address] [place] [address]. [place] [phone] [place] [address] Care Team Providers Care Line Builder Name Role Phone Md Generic Conversion Primary [...] Department Care Team (Latest Contact Info) Description 01/03/2014 Abstract [facility] Social History Tobacco Use Types [...] on filedocumented in this encounter Care Teams Line Builder Relationship Specialty Start Date End Date Md [...]
--- OUTSIDE RECORDS SUMMARY | 2024-09-10 03:50 | XMS_ITS | Encounter Summary ---
Author Organization [facility] Address [address] [place] [address]. [place] [phone] [place] [address] Care Team Providers Care Lead Oracle Developer Name Role Phone Md Generic Conversion Primary [...] Department Care Team (Latest Contact Info) Description 01/04/2014 Abstract [facility] Social History Tobacco [...] on filedocumented in this encounter Care Teams Lead Oracle Developer Relationship Specialty Start Date End Date Md [...]
--- OUTSIDE RECORDS SUMMARY | 2024-09-10 03:50 | XMS_ITS | Encounter Summary ---
Author Organization [facility] Address [address] [place] [address]. [place] [phone] [place] [address] Care Team Providers Care Cashier General Name Role Phone Md Generic Conversion Primary [...] Care Team (Late st Contact Info) Description 12/20/[address] [facility] [address] [place] [address] Jyotsna Gray, BUSINESS ADMINISTRATION PROFESSOR [address] [facility] [address] [place] [address] Social History Tobacco Use Types Packs/Day Years Used Date Smoking Tobacco: Never Assessed Sex and Gender Information Value Date Recorded Sex Assigned at Not on file Legal Sex Male 10:39 PM CDT Gender Identity Not on file Sexual Orientation Not on file documented as of this encounter Plan of Treatment Not on file documented as of this encounter Visit Diagnoses Diagnosis Disturbance of skin sensation documented in this encounter Care Teams Cashier General Relationship Specialty Start Date End Date Alina [...] Md, Generic Conversion, PCP - General 12/20/13 documented as of this encounter
--- OUTSIDE RECORDS SUMMARY | 2024-09-10 03:50 | XMS_ITS | Encounter Summary ---
Author Organization [facility] Address [facility]. [place], [place] [phone] [place] [address] Care Team Providers Care Nutrition Manager Name Role Phone Md Generic Conversion [...] Care Team (Late st Contact Info) Description 12/28/2010 Emergency [facility] [place] [address] Vignesh Kat, [address] [facility] [address] [place] [address] Social History Tobacco Use Types Packs/Day Years Used Date Smoking Tobacco: Never Assessed Sex and Gender Information Value Date Recorded Sex Assigned at Not on file Legal Sex Male 10:39 PM CDT Gender Identity Not on file Sexual Orientation Not on file documented as of this encounter Plan of Treatment Not on file documented as of this encounter Visit Diagnoses Diagnosis Hypopotassemia documented in this encounter Care Teams Nutrition Manager Relationship Specialty Start Date End Date Md Generic Conversion, PCP - General 02/20/17 Md, Generic Conversion, PCP - General 10/11/16 7 [...] Generic Conversion, MD PCP - General 05/28/11 , Generic Conversion, MD PCP - General 03/11/11 , Generic Conversion, MD PCP - General 02/06/11 , Generic Conversion, MD PCP - General 12/28/10 documented as of this encounter
--- OUTSIDE RECORDS SUMMARY | 2024-09-10 03:50 | XMS_ITS | Encounter Summary ---
Author Organization [facility] Address [facility]. [place], [place] [phone] [place] [address] Care Team Providers Care Evp General Counsel Name Role Phone Md Generic Conversion Primary [...] Care Team (Late st Contact Info) Description 11/03/2006 [place] [address] [place] [address] Md Generic MD Ivis Social History Tobacco [...] on filedocumented in this encounter Care Teams Evp General Counsel Relationship Specialty Start Date End Date Md [...]
--- OUTSIDE RECORDS SUMMARY | 2024-09-10 03:50 | XMS_ITS | Encounter Summary ---
Author Organization [facility] Address [facility]. [place], [place] [phone] [place] [address] Care Team Providers Care Neck Band Setter Name Role Phone Md Generic Conversion Primary [...] Care Team (Late st Contact Info) Description 05/16/2010 Emergency [facility] [place] [address] Prosper Tellez MD [address] [place] [address] [place] [address] Social History Tobacco Use Types Packs/Day Years [...] on filedocumented in this encounter Care Teams Neck Band Setter Relationship Specialty Start Date End Date Md [...]
--- OUTSIDE RECORDS SUMMARY | 2024-09-10 03:50 | XMS_ITS | Encounter Summary ---
Author Organization [facility] Address [facility]. [place], [place] [phone] [place], [place] [phone] Care Team Providers Care Coremaker Bench Name Role Phone Md Generic Conversion Primary [...] Care Team (Late st Contact Info) Description 11/04/2010 Emergency [facility] [place] [address] Zachary Jaime MD Social History Tobacco Use [...] Headache documented in this encounter Care Teams Coremaker Bench Relationship Specialty Start Date End Date Md, Generic Conversion, PCP - General 02/20/17 Md, [...] Md, Generic Conversion, MD PCP - General 1/24/12 2/19/ 12 Md, Generic Conversion, MD PCP - General [...] Conversion, MD PCP - General 11/04/10 1 documented as of this encounter
--- OUTSIDE RECORDS SUMMARY | 2024-09-10 03:50 | XMS_ITS | Encounter Summary ---
Author Organization [facility] Address [address] [place] [address]. [place], [place] [address] [place], [place] [phone] Care Team Providers Care Wafer Cleaner Name Role Phone Md Generic Conversion Primary [...] Care Team (Late st Contact Info) Description 08/03/2013 Emergency [facility] [place] [address] Ilda Hoang MD Social History Tobacco Use Types Packs/Day [...] hemorrhage) documented in this encounter Care Teams Wafer Cleaner Relationship Specialty Start Date End Date Alina [...] Conversion, MD PCP - General 08/03/13 4 documented as of this encounter
--- OUTSIDE RECORDS SUMMARY | 2024-09-10 03:50 | XMS_ITS | Encounter Summary ---
Author Organization [facility] Address [address] [place] [address]. [place] [phone] [place] [address] Care Team Providers Care Behavioral Pediatrician Name Role Phone Md Generic Conversion Primary [...] Department Care Team (Latest Contact Info) Description 01/09/2014 Abstract [facility] Social History Tobacco Use [...] on filedocumented in this encounter Care Teams Behavioral Pediatrician Relationship Specialty Start Date End Date Md [...]
--- OUTSIDE RECORDS SUMMARY | 2024-09-10 03:50 | XMS_ITS | Encounter Summary ---
Author Organization [facility] Address [address] [place] [address]. [place] [phone] [place] [address] Care Team Providers Care Credit Reference Clerk Name Role Phone Md Generic Conversion Primary [...] UnavailBalta Roberts MD Primary Care Provider Unavaila hazel Christensen Generic Conversion Primary Care Provider Unavailable Md, Generic Conversion MD Primary Care Provider Unavailable Md, Generic Conversion MD Primary Care Provider Unavailable Md, Generic Conversion MD Primary Care Provider Unavailable Encounter Details Date Type Department Care Team (Late st Contact Info) Description 04/12/2012 Emergency [facility] [place] [address] Mahi Amin MD [address] [place] [address] Social History Tobacco Use Types Packs/Day Years [...] Headache documented in this encounter Care Teams Credit Reference Clerk Relationship Specialty Start Date End Date Md, [...] PCP - General 12/20/13 Md, Generic Conversion, PCP - General 08/03/13 4 Md, Generic Conversion, MD PCP - General 07/07/1208/02 Md, Generic Conversion, MD PCP - General 04/12/1207/06 documented as of this encounter
--- OUTSIDE RECORDS SUMMARY | 2024-09-10 03:50 | XMS_ITS | Encounter Summary ---
Author Organization [facility] Address [address] [place] [address]. [place] [phone] [place], [place] [phone] Care Team Providers Care Glazier Metal Furniture Name Role Phone Md Generic Conversion Primary [...] Care Team (Late st Contact Info) Description 01/01/2014 Abstract [facility] Medical [facility] Family Medicine - [place] [address] [facility], [address] [place] [phone] Balta Costello MD [address] [facility] [address] [place] [address] Social History Tobacco Use Types Packs/Day Years Used Date Smoking Tobacco: Never Assessed Sex and Gender Information Value Date Recorded Sex Assigned at Not on file Legal Sex Male 10:39 PM CDT Gender Identity Not on file Sexual Orientation Not on file documented as of this encounter Last Filed Vital Signs Vital Sign Reading Time Taken Comments Blood Pressure 132/78 01/01/2014 1:46 PM CDT Pulse 80 01/01/2014 1:46 PM CDT Temperature - - Respiratory Rate - - Oxygen Saturation - - Inhaled Oxygen Concentration - - Weight - - Height - - Body Mass Index - - documented in this encounter Progress Notes * Generic Conversion MD Fermin - 01/01/2014 1:30 PM CDT Reason For Visit Reason For Visit: New Patient Visit Chief Complaint Chief Complaint Free Text: new patient. History of Present Illness HPI Free Text: Patient comes in for evaluation of multiple health issues and lab abnormalities. 1. Patient had been seen by a previous PCP for concerns for joint swelling over the wrists, left elbow, ankles and had labs done which showed inflammation, esr 27 (H) and CR P 1.3 (H) but had negative CLARICE, RF, HLA b27, anti CCP ab all which were negative. He still does have some pain and swelling in the wrist, fingers, hands. 2. He reports hx of HTN in the past for which he was told to monitor his dietary intake. he was most recently given lisinopril 10 mg daily by his most recent PCP but the patient decided not to take this at this time due to abd pain from his diverticulitis. current BP is normal today. admits to a significant amount of salt in the diet. urine metanephrines was elevated but other serum levels are normal. plasma renin is also normal. He reports that his BP would fluctuate from normal levels to high/uncontrolled levels in the past.Plasma renin levels are normal, as are other labs except as noted above. see labs recently done by previous PCP for details. 3. HLD: labs recently done showed TG 353 and Otherwise labs are normal. he was given simvastatin 20mg daily by his previous PCP but the patient also did not take this medication as he was hesitant to take this. 4. Hyperglycemia: noted on supposed fasting labs done by his previous PCP. fasting glucose of 180! He has subsequently checked his BS over the past several days and they have been ranging from 1-teens to the 290's. He admits that he was given prednisone recently for swelling and pain in the joints.he has since stopped that when he went to the urgent care (as noted below). 5. Abd pain: He has a hx of diverticulitis for which he's dealt with this for 10 yrs. he was recently on cipro and flagyl for his abd pain. when recently he was also diagnosed with swimmers ear in the left ear, he was switched by the urgent care physician from cipro to augmentin. he does report that since the weekend he's had diarrhea which was initially quite frequent and now has slowed down some. he is not sure what the cause was. some of his pharmacy friends suggested they've seen a lot of people with that recently. 6. Anxiety: patient has been on xanax since he was a teenager. he has significant anxiety. he reports significant stress. he does mention being seen by a counselor for a short period of time but thenthe counselor declined further visits. pt would like to get off of or at least wean his xanax but he has significant anxiety. He also notes chest pain as well. 7. Atypical chest pain: he is currently reporting some chest pain and pain radiating down his left arm. he has risk factors of HTN (hx of - currently normal off any medications) and HLD (noted on labs as a TG of 350's, but otherwise normal cholesterol). he does not smoke or drink. Review of Systems Complete-Male: See HPI for pertinent positives. Constitutional: fever and chills. ENT: sore throat and nasal congestion. Cardiovascular: chest pain. Respiratory: shortness of breath. Gastrointestinal: gerd, but no nausea, no vomiting and no diarrhea. Musculoskeletal: as noted in HPI. Neurological: headache. Psychiatric: anxiety. Active Problems 1. Abnormal liver function test (790.6) (R79.89) 2. Anxiety (300.00) (F41.9) 3. Asthma (493.90) (J45.909) 4. GERD (gastroesophageal reflux disease) (530.81) (K21.9) 5. Hyperglycemia (790.29) (R73.9) 6. Hyperlipidemia (272.4) (E78.5) 7. Hypertension (401.9) (I10) 8. Joint swelling (719.00) (M25.40) Social History ?? No alcohol use ?? Non-smoker (V49.89) (Z78.9) Current Meds see scanned list in intake section for details. Vitals Vital Signs [Data Includes: Current Encounter] Recorded by : Sophia Lee at 01Jan2014 01:46PM Temperature 98 F Heart Rate 80 Respiration 16 Systolic 132 Diastolic 78 Physical Exam Constitutional General appearance: No acute distress, well appearing and well nourished. Head and Face Head and face: Normal. Ears, Nose, Mouth, and Throat External inspection of ears and nose: Normal. Otoscopic examination: Abnormal. Left TM with whitish discharge. Nasal mucosa, septum, and turbinates: Abnormal. Mild nasal congestion. Oropharynx: Abnormal. Red posterior oropharynx. Pulmonary Respiratory effort: No increased work of breathing or signs of respiratory distress. Auscultation of lungs: Clear to auscultation. Cardiovascular Auscultation of heart: Normal rate and rhythm, normal S1 and S2, no murmurs. No carotid bruits. Examination of extremities for edema and/or varicosities: Normal. Abdomen Abdomen: Non-tender, no masses. Lymphatic Palpation of lymph nodes in neck: Abnormal. Mild palpable anterior adenopathy. Musculoskeletal Inspection/palpation of joints, bones, and muscles: Abnormal. Ttp over distal zabala left side. Psychiatric Orientation to person, place and time: Normal. Mood and affect: Normal. Procedure EK01-01-2014: Sinus rhythm (normal). no acute st/t wave changes. possible LAE by automatic read. HR 91 DC 128 ms QRS 96 ms QTc 452 ms Assessment 1. Hypertension (401.9) (I10) 2. Hyperlipidemia (272.4) (E78.5) 3. Hyperglycemia (790.29) (R73.9) 4. GERD (gastroesophageal reflux disease) (530.81) (K21.9) 5. Joint swelling (719.00) (M25.40) 6. Abnormal liver function test (790.6) (R79.89) 7. Atypical chest pain (786.59) (R07.89) 8. Abdominal pain (789.00) (R10.9) Plan 1. Avoid foods and beverages that contain caffeine. Status: Complete Done: [id number] Ordered; For: GERD (gastroesophageal reflux disease); Ordered By: Balta Costello 2. Do not eat anything for at least 2 hours before going to bed. Status: Complete Done: [id number] Ordered; For: GERD (gastroesophageal reflux disease); Ordered By: Balta Costello 3. Eat small frequent meals. Status: Complete Done: [id number] Ordered; For: GERD (gastroesophageal reflux disease); Ordered By: Balta Costello 4. Raise the head of your bed to keep stomach acid from coming back up. Status: Complete Done: [id number] Ordered; For: GERD (gastroesophageal reflux disease); Ordered By: Balta Costello 5. Several things can be done to help treat and prevent your gastric reflux. Status: Complete Done: 01Jan2014 Ordered; For: GERD (gastroesophageal reflux disease); Ordered By: Balta Costello 6. Basic Metabolic Prof ( BMP ) Status: Active Requested for: 01Jan2014 Perform: [facility] Due: [id number]; Ordered; For: Hyperglycemia; Ordered By: Balta Costello 7. Hemoglobin A1C Status: Active Requested for: 01Jan2014 Perform: [facility] Due: [id number]; Ordered; For: Hyperglycemia; Ordered By: Balta Costello Discussion/Summary Discussion Summary Free Text: 1. Hyperglycemia: repeat labs and will follow up for further discussion. 2. Hyperlipidemia: TG diet handout given. 3. Abd GERD: gerd dietary changes recommended for patient as well in conjunction with HLD. 4. atypical chest pain: EKG non acute. labs are noted with reasonable cholesterol control except TG. BP is normal, and he is not a smoker or drinker. dietary changes as above. will also need to further address his anxiety, for which he is currently on xanax 2mg BID for symptom control. 5. Abnormal LFTs: per patient has been in the past elevated. he was tested per patient in the past for hepatitis and was normal. he was told it was fatty liver. monitor for now. 6. anxiety: significant. will need to start on lexapro and slowly wean off of xanax but will need to further address at follow up. brief mention of plan for next visit to address the anxiety. he acknowledged. 7. Joint pain/edema: discussed no obvious EKG changes to suggest edema around his heart. labs have ruled out obvious rheumatologic d/o but that does not mean there are such things as seronegative disorders. he may benefit from rheumatology but for now work on salt in diet and monitor for now. sed rate and CRP elevation may be from any number of issues. will need to further address at a subsequentfollow up visit. 8. GI issues: most recent possible cause of diarrhea is abx associated versus viral gastroenteritis. he has hx of diverticulitis and was on abx recently as well. F/U 2 weeks for further discussion. E/M CODE: [id number] ONLY Signatures Electronically signed by : Balta Costello M.D.; Jan 01 2014 7:42PM BOOK CLEANER (Author) documented in this encounter Plan of Treatment Not on file documented as of this encounter Visit Diagnoses Not on filedocumented in this encounter Care Teams Glazier Metal Furniture Relationship Specialty Start Date End Date Md Generic Conversion, PCP - General 02/20/17 Md Generic Conversion, PCP - General 10/11/16 7 Md Generic Conversion, PCP - General 07/19/16 Md Generic Conversion, PCP - General 05/06/16 , Generic Conversion, PCP - General 01/23/16 Md Generic Conversion, PCP - General 11/27/15 Md, [...]
--- OUTSIDE RECORDS SUMMARY | 2024-09-10 03:50 | XMS_ITS | Encounter Summary ---
Author Organization [facility] Address [facility] [place] [place], [place] [address] [place] [address] Care Team Providers Care Travel Cota Name Role Phone Md Generic Conversion Primary [...] Care Team (Late st Contact Info) Description 11/23/[address] [facility] [place] [address] Cassandra Garcia MD [address] [place] [facility] [address] [place] [address] Social History Tobacco Use Types Packs/Day Years [...] quadrant documented in this encounter Care Teams Travel Cota Relationship Specialty Start Date End Date Md [...] Balta Costello, PCP - General 12/29/13 02/01/14 , Generic Conversion, MD PCP - General 12/20/13 [...] Generic Conversion, MD PCP - General 12/05/10 , Generic Conversion, MD PCP - General 11/23/10 documented as of this encounter
--- OUTSIDE RECORDS SUMMARY | 2024-09-10 03:50 | XMS_ITS | Encounter Summary ---
Author Organization [facility] Address [address] [place] [address]. [place] [address] Care Team Providers Care Military Equipment Specialist Name Role Phone Md Generic Conversion [...] Department Care Team (Latest Contact Info) Description 02/01/2014 Abstract [facility] Medical Group Social History Tobacco Use Types Packs/Day Years Used Date Smoking Tobacco: Never Assessed Sex and Gender Information Value Date Recorded Sex Assigned at Not on file Legal Sex Male 10:39 PM CDT Gender Identity Not on file Sexual Orientation Not on file documented as of this encounter Progress Notes * Generic Ivis Christensen MD - 02/01/2014 2:55 PM CDT Message Message: Called patient in regards to the issues that he was having with the the fever when he called [facility] and spoke with the butter production supervisor doctors. Was calling the patient to follow up with him and have him come in to see the physician. The patient phone number was disconnected called twiced..... MGREEN,RMA Signatures Electronically signed by : Sophia Lee MA; Feb 01 2014 2:58PM PHLEBOTOMY SUPERVISOR (Author) documented in this encounter Plan of Treatment Not on file documented as of this encounter Visit Diagnoses Not on filedocumented in this encounter Care Teams Military Equipment Specialist Relationship Specialty Start Date End Date Md Generic Conversion, PCP - General 02/20/17 Md Generic Conversion, PCP - General 10/11/16 7 Md Generic Conversion, PCP - General 07/19/16 Md Generic Conversion, PCP - General 05/06/16 , Generic Conversion, PCP - General 01/23/16 , Generic Conversion, PCP - General 11/27/15 Md Generic Conversion, PCP - General 11/13/15 Md Generic Conversion, PCP - General 09/20/15 6 Md Generic Conversion, PCP - General 09/10/15 6 Md, Generic Conversion, PCP - General 02/14/1509/09 Md, Generic Conversion, PCP - General 12/11/14 5 Md Generic Conversion, PCP - General 09/10/14 Md Generic Conversion, PCP - General 07/30/1409/09 Md Generic Conversion, MD PCP - General 06/09/1407/29 Balta Costello, PCP - General 02/02/14 06/08/14 Balta Costello, PCP - General 12/29/13 02/01/14 documented as of this encounter
--- OUTSIDE RECORDS SUMMARY | 2024-09-10 03:50 | XMS_ITS | Encounter Summary ---
Author Organization [facility] Address [address] [place] [address]. [place], [place] [phone] [place], [place] [id number] Care Team Providers Care Dock Attendant Name Role Phone Md Generic Conversion Primary [...] Team (Late st Contact Info) Description 07/07/2012 Emergency [facility] [place] [address] Raza Beltre MD [address] [place] [address] [address] Social History Tobacco Use Types Packs/Day Years Used Date Smoking Tobacco: Never Assessed Sex and Gender Information Value Date Recorded Sex Assigned at Not on file Legal Sex Male 10:39 PM CDT Gender Identity Not on file Sexual Orientation Not on file documented as of this encounter Plan of Treatment Not on file documented as of this encounter Visit Diagnoses Diagnosis Bronchitis Bronchitis, not specified as acute or chronic documented in this encounter Care Teams Dock Attendant Relationship Specialty Start Date End Date Md, [...] Generic Conversion, MD PCP - General 07/07/1208/02 documented as of this encounter
--- OUTSIDE RECORDS SUMMARY | 2024-09-10 03:50 | XMS_ITS | Encounter Summary ---
Author Organization [facility] Address Pending sale to [facility]. [place], [place] [address] [place], [place] [phone] Care Team Providers Care Manager Behavioral Name Role Phone Md Generic Conversion Primary [...] Care Team (Late st Contact Info) Description 03/08/2009 Emergency [facility] [place] [address] Md Generic MD Ivis Social History Tobacco [...] filedocumented in this encounter Care Teams Manager Behavioral Relationship Specialty Start Date End Date Md [...]
--- OUTSIDE RECORDS SUMMARY | 2024-09-10 03:50 | XMS_ITS | Encounter Summary ---
Author Organization [facility] Address [address] [place] [address]. [place] [phone] [place], [place] [phone] Care Team Providers Care Hyperion Analyst Name Role Phone Md Generic Conversion [...] Care Team (Late st Contact Info) Description 02/22/2014 Abstract [facility] Medical Group Family Medicine - [place] [address] [facility], [address] [place] [address] Balta Costello MD [address] [facility] [address] [place] [address] Social History Tobacco Use Types Packs/Day Years Used Date Smoking Tobacco: Never Assessed Sex and Gender Information Value Date Recorded Sex Assigned at Not on file Legal Sex Male 10:39 PM CDT Gender Identity Not on file Sexual Orientation Not on file documented as of this encounter Progress Notes * Generic Conversion MD Fermin - 02/22/2014 2:00 PM CDT Message Message: Pt called with concerns of taking metformin. States it is making him feel sick. Per Dr Costelloreiterate to pt he needs to take Metformin once a day. Explained to pt that I spoke with Dr Costello in between pt', and once again he said pt needs to take metformin once daily. Signatures Electronically signed by : Peggy Camacho, ; Feb 19 2014 4:18PM SUPERVISOR BEAM DEPARTMENT (Author) documented in this encounter Plan of Treatment Not on file documented as of this encounter Visit Diagnoses Not on filedocumented in this encounter Care Teams Hyperion Analyst Relationship Specialty Start Date End Date [...]
--- OUTSIDE RECORDS SUMMARY | 2024-09-10 03:50 | XMS_ITS | Encounter Summary ---
Author Organization [facility] Address [facility]. [place], [place] [address] [place] [address] Care Team Providers Care Vacuum Tank Tender Name Role Phone Md Generic Conversion [...] Care Team (Late st Contact Info) Description 11/02/2008 Emergency [facility] [place] [address] Mahi Amin MD [address] [place], [place] [address] Social History Tobacco Use Types Packs/Day Years [...] on filedocumented in this encounter Care Teams Vacuum Tank Tender Relationship Specialty Start Date End Date [...] PCP - General 03/11/11 Md, Generic Conversion, PCP - General 02/06/11 Md, Generic Conversion, [...]
--- OUTSIDE RECORDS SUMMARY | 2024-09-10 03:50 | XMS_ITS | Encounter Summary ---
Author Organization [facility] Address [address] [place] [address]. [place] [phone] [place] [address] Care Team Providers Care Geological Scout Name Role Phone Md Generic Conversion Primary [...] Care Provider Unavaila ble Md Generic Conversion MD Primary Care Provider [...] Care Team (Late st Contact Info) Description 03/11/2011 Emergency [facility] [place] [address] Zachary Jaime MD Social History Tobacco Use [...] Headache documented in this encounter Care Teams Geological Scout Relationship Specialty Start Date End Date Md, [...] Generic Conversion, MD PCP - General 03/11/11 documented as of this encounter
--- OUTSIDE RECORDS SUMMARY | 2024-09-10 03:50 | XMS_ITS | Encounter Summary ---
Author Organization [facility] Address [facility]. [place], [place] [phone] [place], [place] [phone] Care Team Providers Care Heat And Vent Aircraft Mechanic Name Role Phone Md Generic Conversion [...] Care Team (Late st Contact Info) Description 09/24/2010 Emergency [facility] [place] [address] Vignesh Kat, [address] [place] [address] Social History Tobacco Use Types Packs/Day Years Used Date Smoking Tobacco: Never Assessed Sex and Gender Information Value Date Recorded Sex Assigned at Not on file Legal Sex Male 10:39 PM CDT Gender Identity Not on file Sexual Orientation Not on file documented as of this encounter Plan of Treatment Not on file documented as of this encounter Visit Diagnoses Diagnosis Pain in joint, shoulder region documented in this encounter Care Teams Heat And Vent Aircraft Mechanic Relationship Specialty Start Date End Date [...]
--- OUTSIDE RECORDS SUMMARY | 2024-09-10 03:50 | XMS_ITS | Encounter Summary ---
Author Organization [facility] Address [facility]. [place], [place] [address] [place], [place] [phone] Care Team Providers Care Diesel Engine Mechanic Apprentice Name Role Phone Md Generic Conversion Primary [...] (Late st Contact Info) Description 11/05/2008 Emergency [facility] [place] [address] Md Generic MD Ivis Social History Tobacco [...] on filedocumented in this encounter Care Teams Diesel Engine Mechanic Apprentice Relationship Specialty Start Date End Date Md [...] Conversion, MD PCP - General 06/09/1407/29 Balta Cotsello, PCP - General 02/02/14 06/08/14 Balta Costello, [...]
--- OUTSIDE RECORDS SUMMARY | 2024-09-10 03:50 | XMS_ITS | Encounter Summary ---
Author Organization [facility] Address [address] [place] [address]. [place] [phone] [place] [address] Care Team Providers Care Furniture Sales Associate Name Role Phone Md Generic Conversion [...] Care Team (Late st Contact Info) Description 11/02/[address] [address] Alina Christensen MD Social History Tobacco Use [...] (chronic) documented in this encounter Care Teams Furniture Sales Associate Relationship Specialty Start Date End Date [...] Generic Conversion, MD PCP - General 11/02/11 documented as of this encounter
--- OUTSIDE RECORDS SUMMARY | 2024-09-10 03:50 | XMS_ITS | Encounter Summary ---
Author Organization [facility] Address [facility]. [place], [place] [address] [place] [address] Care Team Providers Care Technical Artist Name Role Phone Md Generic Conversion Primary [...] Care Team (Late st Contact Info) Description 05/04/2010 Emergency [facility] [place] [address] Mahi Amin MD [address] [place], [place] [address] Social History Tobacco Use Types Packs/Day Years [...] on filedocumented in this encounter Care Teams Technical Artist Relationship Specialty Start Date End Date Md [...] Balta Costello, PCP - General 02/02/14 06/08/14 aBlta Costello, PCP - General 12/29/13 02/01/14 Md, [...]
--- OUTSIDE RECORDS SUMMARY | 2024-09-10 03:50 | XMS_ITS | Encounter Summary ---
Author Organization [facility] Address [facility]. [place], [place] [address] [place] [address] Care Team Providers Care Import Export Coordinator Name Role Phone Md Generic Conversion Primary [...] Care Team (Late st Contact Info) Description 07/01/2005 Emergency [facility] [place] [address] Prosper Tellez MD [address] [place] [address] [place] [address] Social History Tobacco Use Types Packs/Day Years [...] on filedocumented in this encounter Care Teams Import Export Coordinator Relationship Specialty Start Date End Date Md [...]
--- OUTSIDE RECORDS SUMMARY | 2024-09-10 03:50 | XMS_ITS | Encounter Summary ---
Author Organization [facility] Address [address] [place] [address]. [place] [phone] [place] [address] Care Team Providers Care Process Worker Name Role Phone Md Generic Conversion [...] Care Team (Late st Contact Info) Description 05/28/2011 Emergency [facility] [place] [address] Alina Christenesn MD Social History Tobacco Use Types Packs/Day Years Used Date Smoking Tobacco: Never Assessed Sex and Gender Information Value Date Recorded Sex Assigned at Not on file Legal Sex Male 10:39 PM CDT Gender Identity Not on file Sexual Orientation Not on file documented as of this encounter Plan of Treatment Not on file documented as of this encounter Visit Diagnoses Diagnosis Chest pain Chest pain, unspecified documented in this encounter Care Teams Process Worker Relationship Specialty Start Date End Date [...] Generic Conversion, MD PCP - General 05/28/11 documented as of this encounter
--- OUTSIDE RECORDS SUMMARY | 2024-09-10 03:50 | XMS_ITS | Encounter Summary ---
Author Organization [facility] Address [address] [place] [address]. [place] [id number] [place], [place] [id number] Care Team Providers Care Ice Crusher Name Role Phone Md Generic Conversion Primary [...] Care Team (Late st Contact Info) Description 01/15/2014 Abstract [facility] [place] [address] [facility], [address] [place] [phone] Balta Costello MD [address] [place] [address] Social History Tobacco Use Types Packs/Day Years Used Date Smoking Tobacco: Never Assessed Sex and Gender Information Value Date Recorded Sex Assigned at Not on file Legal Sex Male 10:39 PM CDT Gender Identity Not on file Sexual Orientation Not on file documented as of this encounter Last Filed Vital Signs Vital Sign Reading Time Taken Comments Blood Pressure 130/90 01/15/2014 9:58 AM CDT Pulse 96 01/15/2014 9:58 AM CDT Temperature - - Respiratory Rate - - Oxygen Saturation - - Inhaled Oxygen Concentration - - Weight 132.2 kg (291 lb 8 oz) 01/15/2014 9:58 AM CDT Height 188 cm (6' 2 ) 01/15/2014 9:58 AM CDT Body Mass Index 37.43 01/15/2014 9:58 AM CDT documented in this encounter Progress Notes * Generic Conversion MD Fermin - 01/15/2014 9:45 AM CDT Reason For Visit Follow Up Visit/ Lab Results Chronic Recheck Visit Chief Complaint follow up History of Present Illness 1. DM2: diagnosed recently with labs. has no hx of diabetes. here for start of the treatment. 2. Anxiety: presents with anxiety. here for discussion about treatment. has tried clonazepam and ativan in the past without improvement. has tried paxil in the past without any improvement. 3. abd pain: 1 1/2 weeks ago he was having acute abd pain. eye surgeon physician did provide cipro and flagyl for the concern for diverticulitis. he states he's doing better, that the pain was improved but now has for abd discomfort and intermittent loose stools. he feels gassy and bloated. he has tried gas -x with mild effect. has a hx of IBS and anxiety was increased recently. on long acting levsincurrently. would like to try shorter acting levsin as this is more expensive but also works faster. Review of Systems See HPI for pertinent positives. Constitutional: no fever and no chills. Cardiovascular: chest pain and palpitations. with anxiety Respiratory: shortness of breath. Gastrointestinal: abdominal pain. Active Problems 1. Abdominal pain (789.00) (R10.9) 2. Abnormal liver function test (790.6) (R79.89) 3. Anxiety (300.00) (F41.9) 4. Asthma (493.90) (J45.909) 5. Atypical chest pain (786.59) (R07.89) 6. Diverticulosis of colon (562.10) (K57.30) 7. GERD (gastroesophageal reflux disease) (530.81) (K21.9) 8. Hyperglycemia (790.29) (R73.9) 9. Hyperlipidemia (272.4) (E78.5) 10. Hypertension (401.9) (I10) 11. Joint swelling (719.00) (M25.40) Social History ?? No alcohol use ?? Non-smoker (V49.89) (Z78.9) Current Meds 1. Claritin 10 MG Oral Capsule; Therapy: (Recorded:04Jan2014) to Recorded 2. Flagyl 500 MG SOLR; Therapy: (Recorded:04Jan2014) to Recorded 3. Flonase SUSP; Therapy: (Recorded:04Jan2014) to Recorded 4. PriLOSEC 40 MG Oral Capsule Delayed Release; Therapy: (Recorded:04Jan2014) to Recorded 5. Tylenol TABS; Therapy: (Recorded:04Jan2014) to Recorded 6. Xanax 2 MG Oral Tablet; Therapy: (Recorded:04Jan2014) to Recorded Allergies 1. Bactrim DS TABS 2. Levaquin TABS 3. Percocet TABS 4. Sulfa Drugs 5. Contrast Dye Vitals Recorded by : Sophia Lee at [id number] 09:58AM Temperature 98.4 F Heart Rate 96 Respiration 14 Systolic 130 Diastolic 90 Height 6 ft 2 in Weight 291 lb 8.0 oz BMI Calculated 37.43 BSA Calculated 2.55 Physical Exam Constitutional General appearance: No acute distress, well appearing and well nourished. Head and Face Head and face: Normal. Pulmonary Respiratory effort: No increased work of breathing or signs of respiratory distress. Auscultation of lungs: Clear to auscultation. Cardiovascular Auscultation of heart: Normal rate and rhythm, normal S1 and S2, no murmurs. No carotid bruits. Abdomen Abdomen: Abnormal. BS+, soft, diffuse mild ttp, per patient especially over lower abd, just above pelvis. no rigid guarding. Psychiatric Orientation to person, place and time: Normal. Mood and affect: Abnormal. Appears fatigued, tired today. Results/Data 01-03-2014: HBA1c 6.9 HIGH BMP: Cr 0.9 electrolytes WNL Assessment 1. Anxiety (300.00) (F41.9) 2. Diabetes mellitus (250.00) (E11.9) 3. Abdominal pain (789.00) (R10.9) Plan 1. Start: Hyoscyamine Sulfate 0.125 MG Oral Tablet; TAKE 1 TABLET 3-4 TIMES DAILY NEEDED Rx By: Balta Costello; Dispense: 30 Days ; #:120 Tablet; Refill: 2; For: Abdominal pain; LAURA = N; Print Rx 2. Start: ALPRAZolam 2 MG Oral Tablet; TAKE 1 TABLET 3 TIMES DAILY NEEDED and 1/2 tab at night Rx By: Balta Costello; Dispense: 0 Days ; #:135 Tablet; Refill: 0; For: Anxiety; LAURA = N; Print Rx 3. Start: Citalopram Hydrobromide 20 MG Oral Tablet; Take 1 tablet daily Rx By: Balta Costello; Dispense: 30 Days ; #:30 Tablet; Refill: 2; For: Anxiety; LAURA = N; Print Rx; Msg to Pharmacy: 1/2 tab daily for 2-3 weeks. 4. Start: MetFORMIN HCl - 500 MG Oral Tablet; Take 1 tablet twice daily Rx By: Balta Costello; Dispense: 30 Days ; #:60 Tablet; Refill: 3; For: Diabetes mellitus; LAURA = N; Print Rx 5. Basic Metabolic Prof ( BMP ) Status: Active Requested for: [id number] Perform: [facility] Due: [id number]; Ordered; For: Diabetes mellitus; Ordered By:Balta Costello Discussion/Summary 1. Abd Pain: discussed diverticulitis versus IBS. complete abx for another couple of days despite cipro and the s/e it can causes him to ensure complete treatment of diverticulitis. discussed IBS andit's relation to anxiety, stress. I am willing to try and change to short acting levsin for now, and discussed fiber (maybe consider benefiber over the chewable gummies). other options may be for linzess but will hold off for now as we are doing other new meds. he states bentyl makes his hands shake. acknowledged. 2. DM2: dietary handout given (2000 k diet, diabetes log book and diet recommendations). discussed with patient that metformin does not lower blood sugars to hypoglycemic levels, but helps out bodiesto manage sugars it sees. that along with diet I suspect is going to do well for him. discussed GI s/e, and to try 1 tab daily for a week and if tolerant then increase to BID. repeat labs in 2-3 weeks (BMP) and then if tolerating this will have patient follow up in 4 weeks after that. Will need to get assembler and tester electronics involved in his care. 3. anxiety: discussed that for now, continue xanax at his dose for now (refilled med) and will start off on celexa 10 mg daily and if tolerating this in 2 weeks consider increasing dose to 20 mg daily. discussed that wean off of xanax is going to be slow for now. he acknowledged. briefly mentioned considering counseling. if celexa without effect I would like to consider lexapro. Signatures Electronically signed by : Balta Costello M.D.; Jan 15 2014 6:08PM HSPT TUTOR (Author) TUTOR documented in this encounter Plan of Treatment Not on file documented as of this encounter Visit Diagnoses Not on filedocumented in this encounter Care Teams Ice Crusher Relationship Specialty Start Date End Date Md [...]
--- OUTSIDE RECORDS SUMMARY | 2024-09-10 03:50 | XMS_ITS | Encounter Summary ---
Author Organization [facility] Address [facility]. [place] [id number] [place] [address] Care Team Providers Care Poultry Cleaner Name Role Phone Md Generic Conversion [...] Department Care Team (Latest Contact Info) Description 02/12/[address] [facility] Balta Costello MD [address] [place] [address] Social History Tobacco Use Types Packs/Day Years Used Date Smoking Tobacco: Never Assessed Sex and Gender Information Value Date Recorded Sex Assigned at Not on file Legal Sex Male 10:39 PM CDT Gender Identity Not on file Sexual Orientation Not on file documented as of this encounter Progress Notes * Generic Conversion MD Fermin - 02/12/2014 6:44 PM CDT Note Note: Called patient back. patient voiced complaints against the staff for lying to hiim (stating that he would receive a call back) or states that his staff would see if they would let physician talk to the patient . Patient states that he went to the [facility] for chest pain. patient reports recent of 2 friends his age with diabetes. he does not want to end up like them. acknowledged. patient reported that he got lightheaded and began having chest pain. seen at [facility] and CXR and EKG and CE x 1 set is negative. admits that he has not taken the amitriptyline yet. he states he has been on metformin for the past 5 days. his BS are fluctuating and he is not sure about why this is happening. Plan: discussed with patient that there may be miscommunication but that I have trust in my staff to debt counselor appropriately and indicate what I would typically recommend. also I have not always gotten back to them. discussed that he should be taking the amitriptyline to see if this helps with anxiety. discussed that his BS would fluctuate despite the metformin - that it's natural for his BS to fluctuate! discussed that anxiety is probably his major issue that is affecting his health currently. he acknowledged. he is scared of the unknown! acknowledged. encouraged as above. pt acknowledged. Concerned about chestpain - not cardiac. possible musculoskeletal versus anxiety. pt acknowledged. take xanax. also discussed with GERD ok to take pepcid BID. pt to call back next week to discuss results of taking amitriptyline qhs for a week. discussed not mixing the levsin and amitriptyline together for s/e of drying him out more (anticholingergic effect). mlBrammo Message Recorded as Task Date: 02/12/2014 02:33 PM, Created By: Peggy Camacho Task Name: Follow Up Assigned To: Balta Costello Regarding Patient: Carlos Mcgee, Status: Active Comment: Peggy Camacho - 12 Feb 2014 2:33 PM TASK CREATED Patient is concerned with blood sugars. States they have been ranging from 70's- 150's. I tried to explain too patient that this will happen based on diet, and that he has been diagnosed with diabetes. Pt was seen at [facility] for chest pain over the weekend. I will call for records. I'm not sure what else to tell patient. [phone] Signatures Electronically signed by : Balta Costello M.D.; Feb 12 2014 7:26PM EVENT MARKETING ASSISTANT (Author) documented in this encounter Plan of Treatment Not on file documented as of this encounter Visit Diagnoses Not on filedocumented in this encounter Care Teams Poultry Cleaner Relationship Specialty Start Date End Date , Generic Conversion, PCP - General 02/20/17 Md, [...]
--- OUTSIDE RECORDS SUMMARY | 2024-09-10 03:50 | XMS_ITS | Encounter Summary ---
Author Organization [facility] Address [facility]. [place], [place] [address] [place] [address] Care Team Providers Care Pipe Line Inspector Name Role Phone Md Generic Conversion Primary [...] Care Team (Late st Contact Info) Description 01/06/2001 Abstract [facility] [address] [place], [place] [address] Alina Christensen MD Social History Tobacco Use [...] on filedocumented in this encounter Care Teams Pipe Line Inspector Relationship Specialty Start Date End Date Md [...]
--- OUTSIDE RECORDS SUMMARY | 2024-09-10 03:50 | XMS_ITS | Encounter Summary ---
Author Organization [facility] Address [facility] [place], [place] [address] [place] [address] Care Team Providers Care Flight Radio Operator Name Role Phone Md Generic Conversion [...] Care Team (Late st Contact Info) Description 05/02/2007 Emergency [facility] [place] [address] Md Generic MD Ivis Social History Tobacco [...] on filedocumented in this encounter Care Teams Flight Radio Operator Relationship Specialty Start Date End Date [...]
--- OUTSIDE RECORDS SUMMARY | 2024-09-10 03:50 | XMS_ITS | Encounter Summary ---
Author Organization [facility] Address [facility]6 [facility]. [place], [place] [address] [place] [address] Care Team Providers Care Paint Roller Cover Machine Setter Name Role Phone Md Generic Conversion [...] Costello MD Primary Care Provider Unavailsheryl ble Blata Costello MD Primary Care Provider Unavaila ble [...] Care Team (Late st Contact Info) Description 03/29/2007 Abstract [facility] [address] [place] [address] [place] [address] [place] [phone] Social History Tobacco Use Types Packs/Day Years [...] on filedocumented in this encounter Care Teams Paint Roller Cover Machine Setter Relationship Specialty Start Date End Date [...]
--- OUTSIDE RECORDS SUMMARY | 2024-09-10 03:51 | XMS_ITS | Encounter Summary ---
Author Organization [facility] Address [facility]. [place], [place] [address] [place] [address] Care Team Providers Care Mortgage Specialist Name Role Phone Md Generic Conversion [...] Care Team (Late st Contact Info) Description 03/11/1992 [place] [address] Md Generic ConversionMD Social History Tobacco Use [...] on filedocumented in this encounter Care Teams Mortgage Specialist Relationship Specialty Start Date End Date [...] Balta Costello, PCP - General 02/02/14 06/08/14 Blata Costello, PCP - General 12/29/13 02/01/14 Md, [...]
--- OUTSIDE RECORDS SUMMARY | 2024-09-10 04:05 | XMS_ITS | Encounter Summary ---
Author Organization [facility] Address [address] [place] [address] Phone Care Team Providers Care Correspondence Specialist Name Role Phone Unavailable Primary Care Provider Unavailabl e Reason for Visit * Reason Onset Date Comments Medication Refill 12/29/2022 Encounter Details Date Type Department Care Team (Late st Contact Info) Description 12/29/2022 Telephone [facility] [address] [place] [address] Provider, None [place] Medication Refill Social History Tobacco Use Types Packs/Day Years Used Date Smoking Tobacco: Never Assessed Sex and Gender Information Value Date Recorded Sex Assigned at Not on file Legal Sex Male 8:10 PM CDT Gender Identity Not on file Sexual Orientation Not on file COVID-19 Exposure Response Date Recorded In the last 10 days, have yo u been in contact with someone who was confirmed or suspected to have Coronavirus/COVID-19? No / Unsure 12/29/2022 3:18 PM CDT documented as of this encounter Miscellaneous Notes * Telephone Encounter - Nadege Mckeon RN - 12/29/2022 3:30 PM CDT Patient wants to make a new patient appointment. Patient also wants to get a xanax 2 mg three timesdaily, PRN renewal. When asked if patient was having any symptoms, patient reports that he feels tension in his shoulders. He reports that he is an untreated diabetic. 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 The call got disconnected. This RN called patient back. Patient notified of walk in mental health clinic in [facility]. Patient is not interested and stated, I'm not going to [place]. While trying to set up a patient appointment, patient grew impatient, stated that it takes less time to buy a car and also said he is no longer interested in our services. documented in this encounter Plan of Treatment Not on file documented as of this encounter Visit Diagnoses Not on filedocumented in this encounter
--- OUTSIDE RECORDS SUMMARY | 2024-09-10 04:05 | XMS_ITS | Clinical Summary ---
Author Organization [facility] Address [address] [place] [address] Phone Care Team Providers Care Animal Rescuer Name Role Phone Unavailable Primary Care Provider Unavailabl e Social History Tobacco Use Types Packs/Day Years Used Date Smoking Tobacco: Never Assessed Sex and Gender Information Value Date Recorded Sex Assigned at Not on file Legal Sex Male 8:10 PM CDT Gender Identity Not on file Sexual Orientation Not on file Plan of Treatment Not on file Insurance MEDICAID [employer]
--- OUTSIDE RECORDS SUMMARY | 2024-09-10 04:05 | XMS_ITS | Encounter Summary ---
Author Organization [facility] Care Team Providers Care Customs Officer Name Role Phone Unavailable Primary Care Provider Unavailabl e Encounter Details Date Type Department Care Team (Latest Contact Info) Description 12/29/2022 Travel Social History Tobacco Use Types Packs/Day [...]
--- OUTSIDE RECORDS SUMMARY | 2024-09-10 04:06 | XMS_ITS | Encounter Summary ---
Author Organization [facility] Address [address] [place] [address] Phone Care Team Providers Care Splitting Machine Tender Name Role Phone Miscellaneous, Not In File Unavailable Unava ilable Unknown, Notinfile Primary Care Provider Unavail able Encounter Details Date Type Department Care Team (Late st Contact Info) Description 08/04/2024 Telephone [facility] Surgery [facility] Floor [address] [place] [address] Tamika Morin RN Social History Tobacco Use Types Packs/Day Years Used Date Smoking Tobacco: Former Cigarettes 1 5 1 991 - 1995 Smokeless Tobacco: Never Alcohol Use Standard Drinks/Week Comments Not Currently 0 (1 standard drink = 0.6 oz pur e alcohol) PHQ-2 Answer Date Recorded PHQ-2 Total Score (If total score is 3 or more points, staff should administer the PHQ-9) 2 11/16/2019 Personal Safety Answer Date Recorded Have you ever been in or are you currently in a harmful physical or emotional relationship or is someone making you feel afraid or unsafe? Denies 07/31/2024 Sex and Gender Information Value Date Recorded Sex Assigned at Not on file Legal Sex Male 1:40 AM SEALANT MIXER Gender Identity Not on file Sexual Orientation Not on file documented as of this encounter Miscellaneous Notes * Telephone Encounter - Tamika Morin RN - 08/04/2024 2:26 PM SEALANT MIXER Patient called back, spoke with patient and reassured him that no one from our office called today. ANT MIXER * Telephone Encounter - Tamika Morin RN - 08/04/2024 2:25 PM SEALANT MIXER ----- Message from Reggie Olsen sent at 08/04/2024 1:10 PM SEALANT MIXER ----- Regarding: Dr. Carlton - Returning Call Patient Query: Was an attempt to transfer to the assigned clinical staff or backline? Yes Reason for call?: Pt says he missed a call from us today, and is returning it. No evidence of call from our office. Pt intent on speaking with a nurse, but I was unable to get through Who is the caller: Pt What is the best number for them to contact for a call back: [phone] ANT MIXER documented in this encounter Plan of Treatment Scheduled Procedures Name Priority Associated Diagnoses Date/Ti me COLONOSCOPY Open Access Diverticulitis documented as of this encounter Visit Diagnoses Not on filedocumented in this encounter Care Teams Splitting Machine Tender Relationship Specialty Start Date End Date Unknown, Notinfile PCP - General 08/01/24 Miscellaneous, Not In File 11/16/19 documented as of this encounter
--- OUTSIDE RECORDS SUMMARY | 2024-09-10 04:06 | XMS_ITS | Referral Summary ---
Author Organization [facility] [address] [place] [phone] Care Team Providers Care Ambulatory Care Coordinator Name Role Phone Miscellaneous, Not In File Unavailable Unava ilable Unknown, Notinfile Primary Care Provider Unavail able Encounters Date Type Department Care Team Description 08/16/2024 Documentation [facility] Surgery [address] [place] [address] Medical Office Building [address] [place] [phone] Dennise Johnson, DOMITILA 08/16/2024 Telephone [facility] Surgery [address] [place] [address] Medical Office [facility] [address] [place] [phone] Dennise Johnson, DOMITILA 08/16/2024 Orders Only [facility] Surgery [address] [place] [address] Medical Office Building [address] [place] [phone] Avelina Carlton MD 08/14/2024 Telephone [facility] Surgery [address] [place] [address] Office Building [address] [place] [phone] Sharon Emanuel Scheduling Appointments 08/09/2024 Telephone [facility] Surgery [address] [place] [address] Medical Office Building [address] [place] [phone] Bertha Combs, DOMITILA 08/07/2024 Telephone [facility] Surgery [address] [place] [address] Medical Office [facility] [address] [place] [phone] Dennise Johnson, DOMITILA 08/04/2024 Telephone [facility] Surgery [address] [facility] Floor 5 [place] [phone] Tamika Morin, DOMITILA 08/03/2024 Telephone [facility] Surgery [address] [place] [address] Medical Office Building [address] [place] [phone] Bertha Combs, DOMITILA 08/02/[address] [facility] Surgeon 1 [place], [place] [phone] Sharon Alfaro MD 08/02/2024 Telephone [facility] Surgery [address] [facility] Floor 5 [place] [address] Tamika Morin RN 08/01/2024 12:54 AM HEAVY MOBILE EQUIPMENT REPAIRER - 08/01/2024 5:10 AM [facility] Emergency Department [address] [place] [phone] Raza Bahena Jr., MD Anxiety about health (Primary Dx); Rectal bleeding; History of diverticulitis; Abnormal CT scan Discharge Disposition: Discharge to home or self care 07/31/2024 Telephone [facility] Office Building [address] [place] [phone] Dennise Johnson RN 07/30/[address] [facility] Surgeon 1 [place] [address] Afua Hines MD 07/30/[address] [facility] Surgeon 1 [place] [address] Afua Hines MD 07/30/[address] [facility] Surgeon 1 [place] [address] Afua Hines MD 07/29/[address] [facility] Surgeon 1 [place] [address] Afau Hines MD 07/28/2024 Telephone [facility] Primary Care [address] [place] [phone] Adin Lino MD Medical Question/Miscellaneous 07/27/2024 Telephone [facility] Surgery [address] [place] [address] Medical Office Building [address] [place] [address] Bertha Combs, DOMITILA 07/25/2024 Orders Only [facility] Gastroenterology [address] [facility] 12th [place] [address] [place] [phone] Maira Del Rosario RMA 07/25/2024 Telephone [facility] Surgery [address] [facility] Floor 5 [place] [phone] Avelina Carlton MD Medical Question/Miscellaneous (/) 07/24/[address] [facility] Specialty Services [address] [place] [address] Miriam Gongora RN 07/21/[address] [facility] Specialty Services [address] [place] [phone] Miscellaneous, Not In File Ready to schedule 07/21/2024 Telephone [facility] Surgery [address] [place] [address] Medical Office Building [address] [place] [phone] Bertha Combs, DOMITILA 07/21/2024 Telephone [facility] Surgery [address] [place] [address] Medical Office Building [address] [place] [phone] Bertha Combs, DOMITILA 07/20/2024 12:18 PM HEAVY MOBILE EQUIPMENT REPAIRER - 07/20/2024 4:39 PM [facility] Emergency [facility] Emergency Department [address] [place] [phone] Left lower quadrant abdominal pain (Primary Dx) Discharge Disposition: Discharge to home or self care 07/20/2024 Orders Only [facility] Surgery [address] [place] [address] Medical Office Building [address] [place] [phone] Sharon Emanuel Does not have primary care provider (Primary Dx) 07/20/2024 Telephone [facility] Surgery [address] [place] [address] Medical Office Building [address] [place] [phone] Sharon Emanuel Medical Record Checklist 07/20/2024 9:15 AM HEAVY MOBILE EQUIPMENT REPAIRER Office Visit [facility] Surgery [address] [place] [address] Avelina Carlton MD Diverticulitis 07/10/2024 Telephone [facility] Surgery [address] [facility] Floor 5 [place] [address] Brigitte Vaca BS Scheduling Appointments (Patient request ) 06/29/2024 Telephone [facility] Surgery [address] [place] [address] Medical Office Building [address] [place] [address] Sharon Emanuel Scheduling Appointments 06/29/[address] [facility] Surgeon 1 [place] [address] Sharon Alfaro MD 06/24/2024 12:15 AM CDT - 06/24/2024 2:58 AM CDT [facility] Emergency Department [address] [place] [address] Ben Leslie MD Diverticulitis (Primary Dx); Essential hypertension Discharge Disposition: Discharge to home or self care 06/23/[address] [facility] Surgeon [address] [place] [address] Marcy Alba MD 06/21/[address] [facility] Surgeon [address] [place] [address] Sharon Alfaro MD 06/19/2024 Telephone [facility] Floor 5 [place] [address] Bertha Mcgarry RMA 06/19/2024 Telephone [facility] Floor 5 [place] [address] Sharon Emanuel Reschedule/Medical Concern 06/19/2024 Documentation [facility] Department of Surgery, Section of Colon and Rectal Surgery [address] [facility] 12th [place], [place] [phone] Halina Winslow B.A. CRS Medical Records Checklist 06/12/2024 Telephone [facility] Surgery [address] [place] [address] Medical Office Building [address] [place] [address] Bertha Combs RN from Last 3 Months Allergies Active Allergy Reactions Criticality Noted Date Comments Alum-Mag Hydroxide-Simeth Shortness of breath High 07/27/2012 Azithromycin Hives,Other (See comments) Medium 10/04/2014 Barium Iodide Dizziness,Other (See comments) Low 07/25/2014 Dizziness/Light Headed Barium Sulfate Unknown 04/22/2024 Buspirone Dizziness Low 03/12/2017 Carvedilol Hives Medium 12/05/2015 Clindamycin Anaphylaxis High 09/22/2015 Clonazepam Dizziness Medium 03/12/2017 Clonidine Anxiety Low 12/05/2015 Codeine Dizziness Low 06/24/2018 Dicyclomine Anxiety Low 06/24/2018 Doxycycline Other (See comments),Shortness of breath High 03/05/2014 Flavoxate Hives Medium 06/24/2018 Glimepiride Urticaria Medium 08/25/2019 Hydralazine Mental status changes Low 12/05/2015 Iodinated Contrast Media Shortness of breath,Hallucinations,H arvind High 11/09/2009 IV contrast dye and drink Iodine Hives,Shortness of breath High 06/26/2013 Cephalexin Shortness of breath High 11/16/2019 Levetiracetam Other (See comments) Low 11/16/2019 hallucinaton Levofloxacin Flushing (skin) Low Lidocaine Shortness of breath High Lisinopril Anaphylaxis High 09/22/2015 Losartan Angioedema High 08/01/2019 Swollen lips Nitrofurantoin Unknown Low 10/17/2020 Metformin Nausea & Vomiting Low 08/01/2019 Chest pain Metrizamide Delusions Medium 11/30/2009 Morphine Hallucinations Medium 06/26/2013 Nebivolol Swelling Medium 12/05/2015 lips Ondansetron Unknown Low 06/24/2018 Oxycodone Palpitations Low 06/24/2018 Paroxetine Hcl Anxiety Low 01/07/2015 Famotidine Hives Medium 03/12/2017 Sitagliptin Chest tightness Medium 12/31/2019 Sulfa Hives,Shortness of breath High 11/16/2019 Sulfa (Sulfonamide Antibiotics) Hives Medium Sulfamethoxazole-Trimet hoprim Hives Medium 06/24/2018 Hives Sulfasalazine Shortness of breath High 06/26/2013 Ketorolac Nausea only Low 03/12/2017 Tramadol Hives Medium 06/23/2024 Trimethoprim Uroseptic Ds Rash Medium 06/11/2016 Panic attack Olanzapine Hallucinations Medium 03/12/2017 Medications meclizine (ANTIVERT) 25 mg tablet Take 1 tablet (25 mg total) by mouth every 12 hours Active ibuprofen (ADVIL,MOTRIN) 600 mg tablet Take 1 tablet (600 mg total) by mouth every 6 hours 10/30/19 17 Active diphenhydrAMINE (BENADRYL) 25 mg capsule Take 1 tablet/capsule (25 mg total) by mouth 2 (two) times a day Active simethicone (MYLICON) 125 mg chewable tablet 125 mg 4 (four) times a day Active polyethylene glycol (MIRALAX) 17 gram packet daily TAKE: 1 packet mixed with 8 ounces of fluid, Once a day Active oxybutynin (DITROPAN) 5 mg tabletIndications :Urinary frequency Take 1 tablet (5 mg total) by mouth 2 (two) times a day 60 tablet 5 10/17/19 21 Active solifenacin (VESIcare) 10 mg tablet Take 1 tablet (10 mg total) by mouth daily 30 tablet 11 10/18/19 21 Active mirabegron ER (MYRBETRIQ) 25 mg tablet extended release 24 hr Take 1 tablet (25 mg total) by mouth daily 30 tablet 2 11/06/19 21 Active alfuzosin ER (UROXATRAL) 10 mg 24 hr tablet Take 1 tablet (10 mg total) by mouth daily 30 tablet 5 12/03/19 21 Active fluticasone propionate (FLONASE) 50 mcg/actuation nasal sprayIndications: Non-seasonal allergic rhinitis, unspecified trigger Administer 2 sprays into each nostril daily 1 Inhaler 5 12/10/19 21 Active hyoscyamine (LEVSIN) 0.125 mg tabletIndications :Urinary Incontinence Take 1 tablet (0.125 mg total) by mouth every 4 (four) hours as needed for cramping 30 tablet 05/13/20 21 Active albuterol HFA (PROVENTIL HFA,VENTOLIN HFA,PROAIR HFA) 90 mcg/actuation inhaler Inhale 2 puffs every 4 (four) hours as needed for wheezing 1 each 09/02/20 22 Active ALPRAZolam (XANAX) 2 mg tablet Take 1 tablet (2 mg total) by mouth 3 (three) times a day as needed for anxiety for up to 12 doses 12 tablet 09/20/19 23 Active promethazine (PHENERGAN) 25 mg tablet Take 1 tablet (25 mg total) by mouth every 6 (six) hours as needed for nausea or vomiting 12 tablet 10/11/19 24 Active Additional Information Patient not taking.Reported on 07/20/2024 cyclobenzaprine (FLEXERIL) 10 mg tablet Take 1 tablet (10 mg total) by mouth 3 (three) times a day as needed for muscle spasms for up to 20 doses 20 tablet 01/18/20 24 Active Additional Information Patient not taking.Reported on 07/20/2024 sucralfate (CARAFATE) suspension 1 gram/10 mL Take 10 mL (1 g total) by mouth 2 (two) times a day for 15 days 300 mL 01/18/20 24 Active ondansetron ODT (ZOFRAN-ODT) 4 mg disintegrating tablet Take 1 tablet (4 mg total) by mouth every 8 (eight) hours as needed for nausea or vomiting 20 tablet 01/18/20 24 Active bisacodyl EC (DULCOLAX EC) 5 mg EC tabletIndications :constipation Take 1 tablet (5 mg total) by mouth daily as needed for constipation 4 tablet 05/09/20 24 Active Additional Information Patient not taking.Reported on 07/20/2024 HYDROcodone-aceta minophen (NORCO) 5-325 mg per tabletIndications :Pain Take 1 tablet by mouth every 6 (six) hours as needed for pain for up to 20 doses 20 tablet 06/24/20 24 Active omeprazole (PriLOSEC) 40 mg capsule Take 1 capsule (40 mg total) by mouth daily 30 capsule 06/24/20 24 Active atenoloL (TENORMIN) 25 mg tablet Take 4 tablets (100 mg total) by mouth daily for 30 doses 120 tablet 06/24/20 24 Active atenoloL (TENORMIN) 50 mg tablet Take 2 tablets (100 mg total) by mouth daily 120 tablet 07/20/20 24 025 Active omeprazole (PriLOSEC) 40 mg capsule Take 1 capsule (40 mg total) by mouth daily 60 capsule 07/20/20 24 025 Active polyethylene glycol (GoLYTELY) 236-22.74-6.74 -5.86 gram solution Two days before your test on 08/15 At 6 pm, drink 2 liters (half) of 1st jug of nulytely. Then on the day before your test 08/16 At 10:00 am drink the 2nd half (2 Liters) of the 1st jug of Nulytely; Then at 6 pm drink 2 liters (Half) of the 2nd jug of Nulytely, And lastly on the day of test 08/17 At 7:30 am drink the remaining 2 Liters of 2nd jug of Nulytely. Please provide with Two - 4 Liter PEG of Nulytely, 4000 mL 07/24/20 24 Active hydrocortisone (ANUSOL-HC) 25 mg suppository Insert 1 suppository (25 mg total) into the rectum 2 (two) times a day 24 suppository 08/01/20 24 Active Active Problems Problem Noted Date Diagnosed Date Diverticulitis 07/21/2024 Anemia 05/05/2024 Abnormal finding on GI tract imaging 05/05/2024 Penile pain 12/02/2020 Assessment & Plan (12/02/2020 3:25 PM CDT): -Penile pain on and off. He does report that this often occurs when he has diverticulitis. He has colonoscopy and EGD on 12/27. PLAN: -Continue OTC Azo as directed. -Will start alfuzosin daily. Urinary frequency 12/02/2020 Assessment & Plan (12/02/2020 3:27 PM CDT): -Failed vesicare, tamsulosin, oxybutynin, Myrbetriq. -UA POCT unremarkable. PLAN: -Start alfuzosin to see if this improves penile pain and frequency. -See either PCP or bulk pallet builder to manage diabetes. -I told patient that if he fails this, we may need to look at further testing for penile pain. Patient verbalized understanding. OAB (overactive bladder) 11/09/2020 Assessment & Plan (11/13/2020 6:03 PM HEAVY MOBILE EQUIPMENT REPAIRER): -Symptoms are suggestive of OAB. Prostate size approximately 30-35g. -Patient reluctant to try any medications. He is afraid this will cause him some adverse effects, specifically anxiety. I reassured patient that it is not likely that it is medication that is increasing his anxiety. He also is afraid to take any XR medications because if he has adverse effects, he will have to deal with it for an extended amount of time (patient noted to have > 40 allergies listed). He attempted to google side effects of all medications discussed while we were in the appointment. He has an appointment with psych next month. Info and brochure given to patient on her diagnosis of OAB. Behavior modification instructions: Encouraged patient to avoid bladder irritants such as caffeinated beverages, carbonated drinks, citrus fruits and drinks, artificial sweeteners, spicy foods, and tobacco use. Decrease fluid intake 2-3 hours before bed to avoid nighttime urination. Should drink about 4-6 glasses (8 oz) of fluid a day. More than 6 glasses of fluid a day may cause urinary frequency. Avoid constipation. Weight loss. and Control blood glucose. Discussed with patient about Urodynamic test to assess bladder function. He refuses at this time. -Take oxybutynin 5mg IR TID. Advised to try for longer than just 1 day to see how this affects his symptoms. -If the oxybutynin does not work, stop the oxybutynin completely. Use Vesicare 10mg given to him by his PCP. -We discussed Myrbetriq initially but this was not covered by insurance and would require PA. Will try above medications first. -Common side effects of both medication reviewed and reassured that anxiety is not typically a side effect of either of these. -If symptoms continue, may consider adding tamsulosin to see if this will maximize symptom reduction, but it seems that most of his symptoms are bladder related. 11/13/20 update: -Patient tried oxybutynin again and was c/o feeling confused and foggy. He has stopped this medication. -Tried Vesicare and was not effective in controlling his urinary symptoms. 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 Discussed with patient that I do not feel this pain is in origin. -Patient states he takes Azo regularly for this pain but doesn't feel it always helps. Stricture of sigmoid colon ([facility]) 10/17/2020 Renal calculi 10/17/2020 Assessment & Plan (12/02/2020 3:23 PM CDT): -He has frequent CT done due to multiple ED visits. This showed 3 small stones (3mm or less). -He had appointment with Dr. Aquino for kidney stones but did not show up. -Patient states that he doesn't think his kidney stones are the issue and reason why he did not show to this appointment. Assessment & Plan (11/09/2020 5:20 PM HEAVY MOBILE EQUIPMENT REPAIRER): -CT showing non-obstructing stones in kidney. Patient was concerned about stones. I had long discussion about his stones and told him that these are unlikely to be causing any of the symptoms he is c/o about. -He already has an appointment with Dr. Aquino 11/14/20 to further discuss. 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 Rx'ed 150mg a day until Oct 2019 when he was fired. Has been getting Rx's from multiple physicians and during ED visits since then. Last rx was 1 weeks ago. Ativan rx'ed 3 days ago #5- he did not tell me he took this. In the last few days - He has taken Xanax Today- none Yesterday- 1/2 tab 2 days ago- 4 mg 3 days ago- 10mg He is not experiencing any withdrawal symptoms aside from anxiety. I explained that he has essentially weaned himself off and that his likelihood for withdrawal seizures or serious medical complications has passed. Given his history and insistence on more xanax and aggressive nature during the visit, I explained to him that I will not refill his rx and recommended that he see psychiatrist and psychologist and abuse counselor for his addiction and anxiety. Type 2 diabetes mellitus with other specified co mplication 11/16/2019 Assessment & Plan (11/16/2019 4:11 PM HEAVY MOBILE EQUIPMENT REPAIRER): Not taking meds as prescribed. Pt asked to leave before A1C could be tested. Severe obesity (BMI 35.0-35.9 with comorbidity) 11/16/2019 Assessment & Plan (11/16/2019 4:14 PM HEAVY MOBILE EQUIPMENT REPAIRER): Body mass index is 35.12 kg/m??. Unable to juvenile counselor him given that he was escorted out. Benign neoplasm of colon 02/13/2019 Asthma 02/13/2019 Arthritis 02/13/2019 Palpitations 06/27/2018 Other acute recurrent sinusitis 05/10/2018 Assessment & Plan (05/10/2018 12:51 PM CDT): The patient is currently getting over an [...] determine the extent of the disease process. Moderate episode of recurrent major depressive d isorder 03/01/2018 Sleep apnea 03/01/2018 Recurrent major depressive disorder, in partial remission 03/12/2017 Overview (03/12/2017): Scheduled appointment with psychiatric, April 01, [facility] in [place]. Anxiety 03/12/2017 Obesity (BMI 30-39.9) 03/12/2017 Benzodiazepine dependence 03/12/2017 Essential hypertension 03/12/2017 Allergic rhinitis 03/12/2017 Assessment & Plan (05/10/2018 12:50 PM CDT): Patient demonstrates symptoms consistent with allergic rhinitis. [...] regimen in order to determine the effectiveness. Microcytic anemia 07/02/2015 SOB (shortness of breath) 07/02/2015 Type 2 diabetes mellitus without complication ([facility]/HCC) 08/28/2014 Paresthesias with subjective weakness 08/28/2014 PTSD (post-traumatic stress disorder) 08/28/2014 Cervical stenosis of spinal canal 08/28/2014 Diverticulitis of colon 09/11/2013 Overview (10/17/2020): Overview: Overview: Sedative, hypnotic or anxiol ytic abuse, continuous (CMS/HCC) 06/18/2009 Gastroesophageal reflux disease 06/13/2009 Resolved Problems Problem Noted Date Diagnosed Date Resolved Date Anxiety 11/16/2019 11/09/2020 Assessment & Plan (11/16/2019 3:59 PM HEAVY MOBILE EQUIPMENT REPAIRER): Severe with h/o panic attacks with xanax dependence. In legal troubles as well- would not describe the case. Offered to refer him to psychiatrist, says he called and they weren't accepting new patients, which I know to be false. I advised him to restart Lexapro and he said it wasn't covered by insurance- I checked and it is a tier 1 drug. He demanded Xanax saying it is the only thing that works. I offered to discuss this further after doing research on prior controlled substance use on [facility]. While I was out of the room he called my med tech into the room and went on a tangent about how upset he is that I potentially won't fill his xanax script today. He became highly anxious and demanding. I told him that given the situation and for safety reasons, I do not feel comfortable providing care to him and asked him to leave. He did not leave at that time. He became upset and argumentative but eventually let me escort him out. I gave him the number to multiple other primary care clinics that were accepting patients and to Dr. Matt, a psychiatrist accepting patients. He said he wasn't able to see patients at [facility] because he got fired from the entire system. Wasn't able to see many doctors in the area because he had been fired. Immunizations Name Administration Dates Next Due Td, Unspecified 09/13/2011 Social History Tobacco Use Types Packs/Day [...] on file Legal Sex Male 1:40 AM HEAVY MOBILE EQUIPMENT REPAIRER Gender Identity Not on file Sexual Orientation Not on file Last Filed Vital Signs Vital Sign Reading Time Taken Comments Blood Pressure 138/94 08/01/2024 5:05 AM HEAVY MOBILE EQUIPMENT REPAIRER Pulse 60 08/01/2024 5:05 AM HEAVY MOBILE EQUIPMENT REPAIRER Temperature 36.7 ??C (98 ??F) 07/31/2024 7:26 PM HEAVY MOBILE EQUIPMENT REPAIRER Respiratory Rate 16 08/01/2024 5:05 AM HEAVY MOBILE EQUIPMENT REPAIRER Oxygen Saturation 99% 08/01/2024 5:05 AM HEAVY MOBILE EQUIPMENT REPAIRER Inhaled Oxygen Concentration - - Weight 121.1 kg (266 lb 15.6 oz) 07/31/2024 7:26 PM HEAVY MOBILE EQUIPMENT REPAIRER Height 188 cm (6' 2 ) 07/20/2024 11:17 AM HEAVY MOBILE EQUIPMENT REPAIRER Body Mass Index 34.28 07/20/2024 11:17 AM HEAVY MOBILE EQUIPMENT REPAIRER Plan of Treatment Scheduled Procedures Name Priority Associated Diagnoses Date/Ti me COLONOSCOPY Open Access Diverticulitis Procedures Procedure Name Priority Date/Time Associated Diagnosis Comments EGFR STAT 07/31/2024 7:30 PM HEAVY MOBILE EQUIPMENT REPAIRER DIFFERENTIAL AUTO STAT 07/31/2024 7:3 0 PM HEAVY MOBILE EQUIPMENT REPAIRER COMPREHENSIVE METABOLIC PANEL STAT 07/31/2024 7:30 PM HEAVY MOBILE EQUIPMENT REPAIRER CBC WITH AUTO DIFFERENTIAL STAT 07/31/2024 7:30 PM HEAVY MOBILE EQUIPMENT REPAIRER URINALYSIS AND REFLEX TO MICROSCOPIC AND CULTURE STAT 07/20/2024 11:29 AM HEAVY MOBILE EQUIPMENT REPAIRER CT ABDOMEN PELVIS WO CONTRAST ED 06/23/2024 11:22 PM CDT LACTATE STAT 06/23/2024 10:05 PM CDT EGFR STAT 06/23/2024 10:02 PM CDT URINALYSIS, MICROSCOPIC ONLY STAT 06/23/2024 10:02 PM CDT DIFFERENTIAL AUTO STAT 06/23/2024 10: 02 PM CDT LIPASE STAT 06/23/2024 10:02 PM CDT COMPREHENSIVE METABOLIC PANEL STAT 06/23/2024 10:02 PM CDT CBC WITH AUTO DIFFERENTIAL STAT 06/23/2024 10:02 PM CDT URINALYSIS AND REFLEX TO MICROSCOPIC AND CULTURE STAT 06/23/2024 10:02 PM CDT HEMOGLOBIN A1C Routine 01/22/2020 9:58 AM CDT LIPID PANEL Routine 01/22/2020 9:58 AM CDT COLONOSCOPY REPORT 07/01/2017 from Last 3 Months or Most Recently Relevant to Health Maintenance Results * eGFR (07/31/2024 7:30 PM HEAVY MOBILE EQUIPMENT REPAIRER) eGFR 81 >=60 mL/min/1. 73 m2 Comment: Interpretive Data Reference Interval Normal ?>/= 90 mL/min/1.73m2 Mildly decreased* ? 60 - 89 mL/min/1.73m2 Mildly to moderately decreased ?45 - 59 mL/min/1.73m2 Moderately to severely decreased ??30 - 44 mL/min/1.73m2 Severely decreased ?15 - 29 mL/min/1.73m2 Kidney Failure ?< 15 ??mL/min/1.73m2 *Relative to young adult level Estimated glomerular filtration rate is determined by the 2020 CKD-EPI equation recommended by the National Kidney Foundation (A Unifying Approach to GFR Estimation: Recommendations of the NKF-ASK Task Force on Reassessing the Inclusion of Race in Diagnosing Kidney Disease, JASN 2020). The CKD-EPI equation should not be used for patients with unstable renal function and has not been validated in children and those over 70. Current interpretive data was last reviewed 2021. Testing performed by: [address] [address] Blood 07/31/2024 7:30 PM [employer]IPMENT REPAIRER 07/31/2024 7:37 PM [employer] EQUIPMENT REPAIRER us Raza Bahena Jr., MD LAB BLOOD ORDERABLES Fi nal Result VAL [address] [facility] Department [place] [address] * Differential, auto (07/31/2024 7:30 PM [employer]BI[employer] EQUIPMENT REPAIRER) Neutrophil abs 4.0 1.5 - 6.5 K/cumm Comment:Testing performed by : [address] [address] Imm gran abs 0.0 0.0 - 0.1 K/cumm VAL Comment:Testing performed by : [address] [address] Lymphocyte abs 1.5 0.8 - 3.3 K/cumm VAL Comment:Testing performed by : [address] [address] Monocyte abs 0.3 0.2 - 0.8 K/cumm VAL Comment:Testing performed by : [address] [place] [address] Eosinophil abs 0.1 0.0 - 0.5 K/cumm [facility] Comment:Testing performed by : [address] [address] Basophil abs 0.0 0.0 - 0.1 K/cumm [facility] Comment:Testing performed by : [address] [address] Neutrophil pct 66.7 % [facility] Comment: Interpretive Data Percent cell count reference ranges are not reported, since discordance with absolute values may lead to misinterpretation of CBC data. Current Interpretive Data was last revised on 2017. Testing performed by: [address] [address] Imm gran pct 0.2 % [facility] Comment: Interpretive Data Percent cell count reference ranges are not reported, since discordance with absolute values may lead to misinterpretation of CBC data. Current Interpretive Data was last revised on 2017. Testing performed by: [address] [address] Lymphocyte pct 25.4 % [facility] Comment: Interpretive Data Percent cell count reference ranges are not reported, since discordance with absolute values may lead to misinterpretation of CBC data. Current Interpretive Data was last revised on 2017. Testing performed by: [address] [address] Monocyte pct 5.7 % [facility] Comment: Interpretive Data Percent cell count reference ranges are not reported, since discordance with absolute values may lead to misinterpretation of CBC data. Current Interpretive Data was last revised on 2017. Testing performed by: [address] [address] Eosinophil pct 1.5 % [facility] Comment: Interpretive Data Percent cell count reference ranges are not reported, since discordance with absolute values may lead to misinterpretation of CBC data. Current Interpretive Data was last revised on 2017. Testing performed by: [address] [address] Basophil pct 0.5 % [facility] Comment: Interpretive Data Percent cell count reference ranges are not reported, since discordance with absolute values may lead to misinterpretation of CBC data. Current Interpretive Data was last revised on 2017. Testing performed by: [address] [address] Blood 07/31/2024 7:30 PM [employer] E[employer]IP[employer] REPAIRER 07/31/2024 7:37 PM [employer] EQUIPMENT REPAIRER us Raza Bahena Jr., MD LAB BLOOD ORDERABLES Fi nal Result [facility] [address] [facility] Department [place] [address] * (ABNORMAL) CBC with auto differential (07/31/2024 7:30 PM [employer]BI[employer] EQUIPMENT REPAIRER) WBC 6.0 3.8 - 9.9 K/cumm Comment:Testing performed by : [address] [address] Hgb 10.8(L) 13.0 - 17.5 g/dL VAL Comment:Testing performed by : [address] [address] Hct 37.0(L) 38.9 - 50.3 % VAL Comment:Testing performed by : [address] [address] Plt 171 150 - 400 K/cumm VAL Comment:Testing performed by : [address] [address] MPV 9.4 9.1 - 12.3 fL VAL Comment:Testing performed by : [address] [address] RBC 5.59 4.30 - 5.80 M/cumm VAL Comment:Testing performed by : [address] [address] MCV 66.2(L) 81.3 - 96.4 fL VAL Comment:Testing performed by : [address] [address] MCH 19.3(L) 27.1 - 33.3 pg VAL Comment:Testing performed by : [address] [address] MCHC 29.2(L) 32.3 - 35.7 g/dL VAL MULLER Comment:Testing performed by : [address] [address] RDW CV 18.5(H) 11.1 - 14.9 % VAL MULLER Comment:Testing performed by : [address] [address] RDW SD 41.5 35.7 - 48.1 fL VAL MULLER Comment:Testing performed by : [address] [address] NRBC abs 0.00 0.00 - 0.01 K/cumm VAL MULLER Comment:Testing performed by : [address] [address] Blood 07/31/2024 7:30 PM [employer] EQUIPMENT REPAIRER 07/31/2024 7:37 PM [employer] EQUIPMENT REPAIRER us Raza Bahena Jr., MD LAB BLOOD ORDERABLES Fi nal Result VAL [facility] Department of Laboratories [place], [place] [id number] * (ABNORMAL) Comprehensive metabolic panel (07/31/2024 7:30 PM [employer] EQUIPMENT REPAIRER) Sodium 138 135 - 145 mmol/L Comment:Testing performed by : [address] [address] Potassium, pl 3.6 3.3 - 4.9 mmol/L VAL MULLER Comment:Testing performed by : [address] [address] Chloride 101 97 - 110 mmol/L VAL MULLER Comment:Testing performed by : [address] [address] CO2 27 22 - 32 mmol/L VAL MULLER Comment:Testing performed by : [address] [address] Anion gap 10 2 - 15 mmol/L VAL MULLER Comment:Testing performed by : [address] [address] BUN 11 6 - 25 mg/dL VAL Comment:Testing performed by : [address] [address] Creatinine 1.10 0.80 - 1.30 mg/dL VAL Comment:Testing performed by : [address] [address] Glucose 93 70 - 199 mg/dL VAL Comment: Interpretive Data Fasting glucose >/= 126 mg/dl is diagnostic for diabetes. ?? Fasting is defined as no caloric intake for at least 8 hours. Fasting glucose between 100 mg/dl to 125 mg/dl is diagnostic of prediabetes. In a patient with classic symptoms of hyperglycemia or hyperglycemic crisis, a random glucose >/= 200 mg/dl is diagnostic for diabetes. In the absence of unequivocal hyperglycemia, results should be confirmed by repeat testing. The classification and Diagnosis of Diabetes Diabetes Care 2021; 46: S19-S40. Current interpretive data was last revised 2022. Testing performed by: [address] [address] Calcium 9.7 8.5 - 10.3 mg/dL VAL Comment:Testing performed by : [address] [address] Bilirubin, total 1.3(H) 0.1 - 1.2 mg/dL VAL Comment:Testing performed by : [address] [address] Protein, pl 7.8 6.5 - 8.5 g/dL VAL Comment:Testing performed by : [address] [address] Albumin 4.5 3.5 - 5.0 g/dL VAL Comment:Testing performed by : [address] [address] Alk phos 64 40 - 130 Units/L VAL Comment:Testing performed by : [address] [address] ALT 16 7 - 55 Units/L VAL Comment:Testing performed by : [address] [address] AST 21 10 - 50 Units/L VAL MULLER Comment:Testing performed by : [address] [address] Blood 07/31/2024 7:30 PM [employer] EQUIPMENT REPAIRER 07/31/2024 7:37 PM [employer] EQUIPMENT REPAIRER us Raza Bahena Jr., MD LAB BLOOD ORDERABLES Fi nal Result VAL [address] [facility] Department [place] [address] * Urinalysis reflex to microscopic and culture Urine, clean voided (07/20/2024 11:29 AM HE[employer]BI[employer] EQUIPMENT REPAIRER) Color, ur Yellow Yellow Comment:Testing performed by : [address] [address] Clarity, ur Clear Clear VAL Comment:Testing performed by : [address] [address] Specific gravity, ur 1.015 1.003 - 1.030 VAL Comment:Testing performed by : [address] [address] pH, urine 5.5 VAL Comment: Interpretive Data ? Urine pH is affected by diet, medications, systemic acid-base disturbances, and renal tubular function. ??pH may affect urinary stone formation. ??For example, urine pH below 6.0 may help reduce the tendency for calcium phosphate stones and pH greater than 6.0 may reduce the tendency for uric acid stone formation. Source: [facility] Current Interpretive Data was last revised on 2017 Testing performed by: [address] [address] Protein, ur ql Negative Negative VAL Comment:Testing performed by : [address] [address] Glucose, ur ql Negative Negative VAL MULLER Comment:Testing performed by : [address] [address] Ketones, ur Negative Negative VAL MULLER Comment:Testing performed by : [address] [address] Bilirubin, ur Negative Negative VAL Comment:Testing performed by : [facility], [address] [place] [address], [place]., [address] Blood, ur Negative Negative VAL Comment:Testing performed by : [facility], [address] [place] [address], [place]., [address] Urobilinogen, ur <2.0 <2.0 mg/dL VAL Comment:Testing performed by : [address], [place]., [address] Nitrite, ur Negative Negative VAL Comment:Testing performed by : [address], [place]., [address] Leukocyte esterase, ur Negative Negative VAL Comment:Testing performed by : [address], [place]., [address] UA reflex comment Reflex conditions for microscopic UA and culture not met. VAL Comment:Testing performed by : [address] [address] Urine, clean voided 07/20/2024 11:29 AM HE[employer]BI[employer] EQUIPMENT REPAIRER 07/20/2024 11:34 AM HEAV[employer] MOBILE EQUIPMENT REPAIRER us Zayda Ku MD LAB MICROBIOLOGY - GEN ERAL ORDERABLES Final Result VAL 4[address] [facility] Department [place] [address] * CT Abdomen Pelvis WO Contrast (06/23/2024 11:22 PM CDT) Anatomical Region Laterality Modality Body N/A Computed Tomogra phy 06/23/2024 11:2 7 PM CDT Narrative 06/23/2024 11:37 PM CDT EXAM DESCRIPTION: ?? CT ABDOMEN PELVIS WO CONTRAST REASON FOR STUDY: ?? Abdominal pain, acute, nonlocalized ?? Penis, bladder and colon pain with chills x 2 months worse today. States has doctors appointment with colorectal dr x 06[place]29 [place] ?? Hx linda ?? TECHNIQUE: CT scan of the abdomen and pelvis performed without intravenous and without ??oral contrast using helical scanning technique. Reconstructed coronal and sagittal MPR images reviewed. All images stored on PACS. Automated exposure control was used as a dose optimization technique for this examination. COMPARISON: ?? 01/18/2024 FINDINGS: The sensitivity for detection of visceral lesions is diminished without the use of intravenous contrast. LOWER CHEST: ?? No significant pulmonary abnormalities. No effusion. LIVER: ?? Normal size. ??No identified cystic or solid masses. GALLBLADDER: ?? Removed BILE DUCTS: ?? No intrahepatic or extrahepatic ductal dilatation. SPLEEN: ?? Normal size. ??No focal lesions. PANCREAS: ?? No identified cystic or solid masses. ??No significant calcifications. No adjacent inflammation or peripancreatic fluid collections. Pancreatic duct not dilated. ADRENALS: ?? Normal. KIDNEYS/URINARY TRACT: ?? Multiple small nonobstructing stones are seen in both kidneys. ??No obstructing renal or ureteral stone is seen. ??No hydronephrosis is seen. ?Urinary bladder is unremarkable. GI: ?? Prominent wall thickening of the mid sigmoid colon. ??There is a 5.7 cm segment which could represent an obstructed segment of the sigmoid colon. ??The more proximal 20 cm of the colon demonstrate prominent wall thickening and diverticuli similar to previous. ??No clear evidence of perforation is seen here. ??Some mild adjacent strandy density is noted. PERITONEUM: ?? No ascites or free air. RETROPERITONEUM: ?? No mass or adenopathy. REPRODUCTIVE: ?? No significant abnormality. VASCULATURE: ?? No abdominal aortic aneurysm. MUSCULOSKELETAL: ?? No significant abnormality. OTHER: ?? No other abnormality. IMPRESSION: ?? Very abnormal appearing sigmoid colon with a large 6 cm segment in the mid sigmoid has the appearance of a soft tissue mass. ??Prominent wall thickening and irregularity is seen of the proximal half of the sigmoid colon . ??The appearance taken alone is concerning for neoplasia. ??However I noticed that this appearance has been present on multiple prior studies dating back to at least 2019. ??Hopefully this has been further evaluated. ??There are several diverticuli with some mild stranding in the area which could represent some degree of diverticulitis. ??No clear evidence of perforation or abscess formation is seen. THIS IS AN ELECTRONICALLY VERIFIED FINAL REPORT 06/23/2024 11:37 PM - Electronically signed by ??Dave Martin M.D. KH: TATIANA D: ??06/23/2024 11:37 PM T: ??06/23/2024 11:37 PM Report ID: [id number] Reading Location: ??[id number] Procedure Note Dave Martin MD - 06/23/2024 EXAM DESCRIPTION: CT ABDOMEN PELVIS WO CONTRAST REASON FOR STUDY: Abdominal pain, acute, nonlocalized Penis, bladder and colon pain with chills x 2 months worse today. [facility] appointment with colorectal dr x 06[place]29 [place] Hx linda TECHNIQUE: CT scan of the abdomen and pelvis performed without intravenousand without oral contrast using helical scanning technique. Reconstructed coronal and sagittal MPR images reviewed. All images stored on PACS.Automated exposure control was used as a dose optimization technique for this examination. COMPARISON: 01/18/2024 FINDINGS: The sensitivity for detection of visceral lesions is diminished without the use of intravenous contrast. LOWER CHEST: No significant pulmonary abnormalities. No effusion. LIVER: Normal size. No identified cystic or solid masses. GALLBLADDER: Removed BILE DUCTS: No intrahepatic or extrahepatic ductal dilatation. SPLEEN: Normal size. No focal lesions. PANCREAS: No identified cystic or solid masses. No significant calcifications. No adjacent inflammation or peripancreatic fluidcollections. Pancreatic duct not dilated. ADRENALS: Normal. KIDNEYS/URINARY TRACT: Multiple small nonobstructing stones are seen inboth kidneys. No obstructing renal or ureteral stone is seen. Nohydronephrosis is seen. Urinary bladder is unremarkable. GI: Prominent wall thickening of the mid sigmoid colon. There is a 5.7cm segment which could represent an obstructed segment of the sigmoid colon.The more proximal 20 cm of the colon demonstrate prominent wall thickening and diverticuli similar to previous. No clear evidence of perforation is seen here. Some mild adjacent strandy density is noted. PERITONEUM: No ascites or free air. RETROPERITONEUM: No mass or adenopathy. REPRODUCTIVE: No significant abnormality. VASCULATURE: No abdominal aortic aneurysm. MUSCULOSKELETAL: No significant abnormality. OTHER: No other abnormality. IMPRESSION: Very abnormal appearing sigmoid colon with a large 6 cmsegment in the mid sigmoid has the appearance of a soft tissue mass. Prominentwall thickening and irregularity is seen of the proximal half of the sigmoidcolon . The appearance taken alone is concerning for neoplasia. However Inoticed that this appearance has been present on multiple prior studies datingback to at least 2019. Hopefully this has been further evaluated. There areseveral diverticuli with some mild stranding in the area which could representsome degree of diverticulitis. No clear evidence of perforation or abscess formation is seen. THIS IS AN ELECTRONICALLY VERIFIED FINAL REPORT 06/23/2024 11:37 PM - Electronically signed by Dave Martin M.D. KH: TATIANA Report ID: [id number] Reading Location: [place] [address] us Jaimie Johnson HEAV[employer] EQUIPMENT ENGINE MECHANIC IMG CT PROCEDURES Final Result * Lactate (06/23/2024 10:05 PM CDT) Pathologist [facility] Lactate 1.5 0.7 - 2.0 mmol/L Comment:Testing performed by : [facility], [address] [place] [address]., [address] Blood 06/23/2024 10:0 5 PM CDT 06/23/2024 10:08 PM CDT us Ben Leslie MD LAB BLOOD ORDERABLES Final Result [facility] [address] [facility] Department [place] [address] * eGFR (06/23/2024 10:02 PM CDT) eGFR 81 >=60 mL/min/1. 73 m2 Comment: Interpretive Data Reference Interval Normal ?>/= 90 mL/min/1.73m2 Mildly decreased* ? 60 - 89 mL/min/1.73m2 Mildly to moderately decreased ?45 - 59 mL/min/1.73m2 Moderately to severely decreased ??30 - 44 mL/min/1.73m2 Severely decreased ?15 - 29 mL/min/1.73m2 Kidney Failure ?< 15 ??mL/min/1.73m2 *Relative to young adult level Estimated glomerular filtration rate is determined by the 2020 CKD-EPI equation recommended by the National Kidney Foundation (A Unifying Approach to GFR Estimation: Recommendations of the NKF-ASK Task Force on Reassessing the Inclusion of Race in Diagnosing Kidney Disease, JASN 2020). The CKD-EPI equation should not be used for patients with unstable renal function and has not been validated in children and those over 70. Current interpretive data was last reviewed 2021. Testing performed by: [address] [address] Blood 06/23/2024 10:0 2 PM CDT 06/23/2024 10:08 PM CDT us Ben Leslie MD LAB BLOOD ORDERABLES Final Result [facility] [address] [facility] Department [place] [address] * Differential, auto (06/23/2024 10:02 PM CDT) Neutrophil abs 3.5 1.5 - 6.5 K/cumm Comment:Testing performed by : [address] [address] Imm gran abs 0.0 0.0 - 0.1 K/cumm VAL Comment:Testing performed by : [address] [address] Lymphocyte abs 1.0 0.8 - 3.3 K/cumm VAL Comment:Testing performed by : [address] [address] Monocyte abs 0.2 0.2 - 0.8 K/cumm VAL Comment:Testing performed by : [address] [address] Eosinophil abs 0.1 0.0 - 0.5 K/cumm [facility] Comment:Testing performed by : [address] [address] Basophil abs 0.0 0.0 - 0.1 K/cumm VAL Comment:Testing performed by : [address] [address] Neutrophil pct 73.1 % [facility] Comment: Interpretive Data Percent cell count reference ranges are not reported, since discordance with absolute values may lead to misinterpretation of CBC data. Current Interpretive Data was last revised on 2017. Testing performed by: [address] [address] Imm gran pct 0.2 % [facility] Comment: Interpretive Data Percent cell count reference ranges are not reported, since discordance with absolute values may lead to misinterpretation of CBC data. Current Interpretive Data was last revised on 2017. Testing performed by: [address] [address] Lymphocyte pct 20.5 % [facility] Comment: Interpretive Data Percent cell count reference ranges are not reported, since discordance with absolute values may lead to misinterpretation of CBC data. Current Interpretive Data was last revised on 2017. Testing performed by: [address] [address] Monocyte pct 4.6 % [facility] Comment: Interpretive Data Percent cell count reference ranges are not reported, since discordance with absolute values may lead to misinterpretation of CBC data. Current Interpretive Data was last revised on 2017. Testing performed by: [address] [address] Eosinophil pct 1.0 % [facility] Comment: Interpretive Data Percent cell count reference ranges are not reported, since discordance with absolute values may lead to misinterpretation of CBC data. Current Interpretive Data was last revised on 2017. Testing performed by: [address] [address] Basophil pct 0.6 % [facility] Comment: Interpretive Data Percent cell count reference ranges are not reported, since discordance with absolute values may lead to misinterpretation of CBC data. Current Interpretive Data was last revised on 2017. Testing performed by: [address] [address] Blood 06/23/2024 10:0 2 PM CDT 06/23/2024 10:08 PM CDT us Ben Leslie MD LAB BLOOD ORDERABLES Final Result Performing Organization Address City/State/[facility] Co de Phone Number VAL [address] [facility] Department [place] [address] * (ABNORMAL) Urinalysis reflex to microscopic and culture Urine (06/23/2024 10:02 PM CDT) Color, ur Yellow Yellow Comment:Testing performed by : [address] [address] Clarity, ur Clear Clear VAL Comment:Testing performed by : [address] [address] Specific gravity, ur 1.014 1.003 - 1.030 VAL Comment:Testing performed by : [address] [address] pH, urine 6.0 VAL Comment: Interpretive Data ? Urine pH is affected by diet, medications, systemic acid-base disturbances, and renal tubular function. ??pH may affect urinary stone formation. ??For example, urine pH below 6.0 may help reduce the tendency for calcium phosphate stones and pH greater than 6.0 may reduce the tendency for uric acid stone formation. Source: [facility] Current Interpretive Data was last revised on 2017 Testing performed by: [address] [address] Protein, ur ql Trace(A) Negative VAL Comment:Testing performed by : [address] [address] Glucose, ur ql Negative Negative VAL Comment:Testing performed by : [address] [address] Ketones, ur Negative Negative VAL Comment:Testing performed by : [address] [address] Bilirubin, ur Negative Negative VAL MULLER Comment:Testing performed by : [address] [address] Blood, ur Negative Negative VAL MULLER Comment:Testing performed by : [address] [address] Urobilinogen, ur <2.0 <2.0 mg/dL VAL MULLER Comment:Testing performed by : [address] [address] Nitrite, ur Negative Negative VAL MULLER Comment:Testing performed by : [address] [address] Leukocyte esterase, ur 1+(A) Negative VAL MULLER Comment:Testing performed by : [address] [address] UA reflex comment Reflex to microscopic UA will be performed. VAL MULLER Comment:Testing performed by : [address] [address] Urine 06/23/2024 10:0 2 PM CDT 06/23/2024 10:15 PM CDT us Ben Leslie MD LAB MICROBIOLOGY - GENERAL ORDERABLES Final Result VAL M[facility] Department of Laboratories [place], [place] [id number] * (ABNORMAL) CBC with auto differential (06/23/2024 10:02 PM CDT) WBC 4.8 3.8 - 9.9 K/cumm Comment:Testing performed by : [address] [address] Hgb 10.6(L) 13.0 - 17.5 g/dL VAL MULLER Comment:Testing performed by : [address] [address] Hct 36.4(L) 38.9 - 50.3 % VAL MULLER Comment:Testing performed by : [address] [address] Plt 193 150 - 400 K/cumm VAL MULLER Comment:Testing performed by : [address] [address] MPV 9.0(L) 9.1 - 12.3 fL VAL Comment:Testing performed by : [address] [address] RBC 5.47 4.30 - 5.80 M/cumm VAL MULLER Comment:Testing performed by : [address] [address] MCV 66.5(L) 81.3 - 96.4 fL VAL Comment:Testing performed by : [address] [address] MCH 19.4(L) 27.1 - 33.3 pg VAL Comment:Testing performed by : [address] [address] MCHC 29.1(L) 32.3 - 35.7 g/dL VAL Comment:Testing performed by : [address] [address] RDW CV 17.6(H) 11.1 - 14.9 % VAL Comment:Testing performed by : [address] [address] RDW SD 40.2 35.7 - 48.1 fL VAL Comment:Testing performed by : [address] [address] NRBC abs 0.00 0.00 - 0.01 K/cumm VAL Comment:Testing performed by : [address] [address] Blood (Blood, Venous) 06/23/2024 10:02 PM CDT 06/23/2024 10:08 PM CDT us Ben Leslie MD LAB BLOOD ORDERABLES Final Result VAL [facility] Department [place] [address] * (ABNORMAL) Urinalysis, microscopic only (06/23/2024 10:02 PM CDT) WBC, ur 0-5 0 - 5 /HPF Comment:Testing performed by : [facility], [address] [place] [address]., [address] RBC, ur 0-2 0 - 2 /HPF VAL Comment:Testing performed by : [address] [address] Epithelial cells, squamous, ur 1-5 0 - 5 /HPF VAL Comment:Testing performed by : [address] [address] Mucous, ur Present(A) VAL MULLER Comment:Testing performed by : [address], [place], [place]., [id number] Hyaline casts, ur 1-5 0 - 10 /LPF VAL Comment:Testing performed by : [address] [address] Culture Reflex Comment Reflex conditions for urine culture (WBC >10) not met. VAL Comment:Testing performed by : [address] [address] Urine 06/23/2024 10:0 2 PM CDT 06/23/2024 10:15 PM CDT Ben Leslie MD LAB URINE ORDERABLES Final Result Performing Organization Address [facility] Co de Phone Number [place] [phone] [facility] [employer] [place] [address] * Lipase (06/23/2024 10:02 PM CDT) Lipase 28 10 - 99 Units/L Comment:Testing performed by : [address] [address] Blood (Blood, Venous) 06/23/2024 10:02 PM CDT 06/23/2024 10:08 PM CDT Ben Leslie MD LAB BLOOD ORDERABLES Final Result Performing Organization Address City/[facility]/ZIP Co de Phone Number [address] Department [place] [address] * (ABNORMAL) Comprehensive metabolic panel (06/23/2024 10:02 PM CDT) Sodium 139 135 - 145 mmol/L Comment:Testing performed by : [address] [address] Potassium, pl 3.4 3.3 - 4.9 mmol/L VAL Comment:Testing performed by : [address] [address] Chloride 100 97 - 110 mmol/L VAL Comment:Testing performed by : [address] [address] CO2 27 22 - 32 mmol/L VAL Comment:Testing performed by : [address], [place]., [address] Anion gap 12 2 - 15 mmol/L VAL Comment:Testing performed by : [address] [address] BUN 9 6 - 25 mg/dL VAL Comment:Testing performed by : [address] [address] Creatinine 1.10 0.80 - 1.30 mg/dL VAL Comment:Testing performed by : [address] [address] Glucose 150 70 - 199 mg/dL [facility] Comment: Interpretive Data Fasting glucose >/= 126 mg/dl is diagnostic for diabetes. ?? Fasting is defined as no caloric intake for at least 8 hours. Fasting glucose between 100 mg/dl to 125 mg/dl is diagnostic of prediabetes. In a patient with classic symptoms of hyperglycemia or hyperglycemic crisis, a random glucose >/= 200 mg/dl is diagnostic for diabetes. In the absence of unequivocal hyperglycemia, results should be confirmed by repeat testing. The classification and Diagnosis of Diabetes Diabetes Care 2021; 46: S19-S40. Current interpretive data was last revised 2022. Testing performed by: [address] [address] Calcium 9.6 8.5 - 10.3 mg/dL VAL Comment:Testing performed by : [address] [address] Bilirubin, total 1.3(H) 0.1 - 1.2 mg/dL VAL Comment:Testing performed by : [address] [address] Protein, pl 7.9 6.5 - 8.5 g/dL VAL Comment:Testing performed by : [address] [address] Albumin 4.4 3.5 - 5.0 g/dL VAL Comment:Testing performed by : [address] [address] Alk phos 63 40 - 130 Units/L VAL Comment:Testing performed by : [address] [address] ALT 13 7 - 55 Units/L VAL Comment:Testing performed by : [address] [address] AST 23 10 - 50 Units/L VAL Comment:Testing performed by : [address] [address] Blood 06/23/2024 10:0 2 PM CDT 06/23/2024 10:08 PM CDT us Ben Leslie MD LAB BLOOD ORDERABLES Final Result Performing Organization Address City/State/[facility] Co pr Phone Number [facility] [phone] [facility] Department [place] [address] * (ABNORMAL) Hemoglobin A1c (01/22/2020 9:58 AM CDT) Hemoglobin A1c % 6.2(H) 4.0 - 5.6 % [facility] Comment: ADA 2016 GUIDELINES: ??Initial Diagnostic Criteria ? HbA1c Result: ?Interpretation: ?<5.7% ? Normal ?5.7-6.4% ?At risk for diabetes mellitus ?>=6.5% ?Consistent with diabetes mellitus ??Diabetes monitoring ? Target value (ADA Recommended) ?? <7% 01/22/2020 9:58 AM CDT 01/22/2020 10:14 AM CDT Narrative Resulting Agency Comment CLI us Charanjit Sheffield MD LAB BLOOD ORDERABLES Final Result [facility] [address] [place], [place] [id number] [place] [address] * (ABNORMAL) Lipid panel (01/22/2020 9:58 AM CDT) Triglycerides 173(H) 0 - 149 mg/dL [facility] Comment: National Lipid Association/NCEP Guidelines: ?? Normal ?< 150 mg/dL ?? Borderline high ?? 150-199 mg/dL ?? High ?200-499 mg/dL ?? Very High ? >=500 mg/dL Cholesterol 152 0 - 199 mg/dL [facility] Comment: National Lipid Association/NCEP Guidelines: Desirable ? < 200 mg/dL Borderline high: ??200-239 mg/dL High Risk: ?>=240 mg/dL HDL Cholesterol 22 mg/dL [facility] Comment: Reference Ranges: ? Males: >=40 mg/dL ? Females: >=50 mg/dL LDL Cholesterol, Calc 95 0 - 129 mg/dL [facility] Comment: National Lipid Association/NCEP Guidelines: ??Optimal ? < 100 mg/dL ??Near Optimal ?100-129 mg/dL ??Borderline high 130-159 mg/dL ??High ?>=160 mg/dL Cholesterol/HDL Ratio 6.[address] [facility] Comment: Optimal ??< 3.5:1 High ? > 5:1 01/22/2020 9:58 AM CDT 01/22/2020 10:14 AM CDT Narrative Resulting Agency Comment CLI Charanjit Sheffield MD LAB BLOOD ORDERABLES Final Result [facility] [address] [place] [address], [facility] [phone] * COLONOSCOPY REPORT (07/01/2017) Anatomical Region Laterality Modality Other Provider Scanning GI PROCEDURE ORDERABLES Edited Result - Final from Last 3 Months or Most Recently Relevant to Health Maintenance Insurance [facility] Care Teams Ambulatory Care Coordinator Relationship Specialty Start Date End Date Unknown, Notinfile PCP - General 08/01/24 Miscellaneous, Not In File 11/16/19
--- OUTSIDE RECORDS SUMMARY | 2024-09-10 04:06 | XMS_ITS | Encounter Summary ---
Author Organization [facility] Address [address] [facility] [address] [place] [address] Phone Care Team Providers Care Bush Regenerator Name Role Phone Miscellaneous, Not In File Unavailable Unava ilable Unknown, Notinfile Primary Care Provider Unavail able Encounter Details Date Type Department Care Team (Late st Contact Info) Description 08/16/2024 Orders Only [facility] [address] [place] [address] Medical Office Building [address] [place] [address] Avelina Carlton MD [address] [facility] [phone] [place] [address] Social History Tobacco Use Types Packs/Day Years [...] on file Legal Sex 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
--- OUTSIDE RECORDS SUMMARY | 2024-09-10 04:06 | XMS_ITS | Encounter Summary ---
Author Organization [facility] Healthcare Address [address] [place] [id number] Care Team Providers Care Nutrition Tech Name Role Phone Miscellaneous, Not In File Unavailable Unava ilable Unknown, Notinfile Primary Care Provider Unavail able Reason for Visit * Reason Comments Rectal Bleeding Encounter Details Date Type Department Care Team (Late st Contact Info) Description 08/01/2024 12:54 AM RECYCLABLE MATERIALS COLLECTOR - 08/01/2024 5:10 AM [facility] Emergency Department [address] [place] [address] Raza Bahena Jr., MD [address] [place] [address] Anxiety about health (Primary Dx); Rectal bleeding; History of diverticulitis; Abnormal CT scan Discharge Disposition: Discharge to home or self care Social History Tobacco Use Types Packs/Day Years Used Date Smoking Tobacco: Former Cigarettes 1 5 1 - 1995 Smokeless Tobacco: Never Alcohol Use [...] on file Legal Sex Male 1:40 AM RECYCLABLE MATERIALS COLLECTOR Gender Identity Not on file Sexual Orientation Not on file documented as of this encounter Last Filed Vital Signs Vital Sign Reading Time Taken Comments Blood Pressure 138/94 08/01/2024 5:05 AM RECYCLABLE MATERIALS COLLECTOR Pulse 60 08/01/2024 5:05 AM RECYCLABLE MATERIALS COLLECTOR Temperature 36.7 ??C (98 ??F) 07/31/2024 7:26 PM RECYCLABLE MATERIALS COLLECTOR Respiratory Rate 16 08/01/2024 5:05 AM RECYCLABLE MATERIALS COLLECTOR Oxygen Saturation 99% 08/01/2024 5:05 AM RECYCLABLE MATERIALS COLLECTOR Inhaled Oxygen Concentration - - Weight 121.1 kg (266 lb 15.6 oz) 07/31/2024 7:26 PM RECYCLABLE MATERIALS COLLECTOR Height - - Body Mass Index 34.28 07/20/2024 11:17 AM RECYCLABLE MATERIALS COLLECTOR documented in this encounter Discharge Instructions * Discharge Instructions* Raza Bahena Jr., MD - 08/01/2024 4:50 AM RECYCLABLE MATERIALS COLLECTOR Begin and continue 2 heaping tbsp of Metamucil and a glass of water twice a day Take MiraLax daily Follow up with a it operations analyst that you were referred to at previous visit to Dr. Kim Return to emergency department if gets significantly worse CLABLE MATERIALS COLLECTOR CLABLE MATERIALS COLLECTOR * Attachments The following attachments cannot be sent through Care Everywhere. * Rectal Bleeding (General Information) ([place]) * Hemorrhoids (General Information) ([place]) documented in this encounter Medications at Time of Discharge albuterol HFA (PROVENTIL HFA,VENTOLIN HFA,PROAIR HFA) 90 mcg/actuation inhaler Inhale 2 puffs every 4 (four) hours as needed for wheezing 1 each 2 ALPRAZolam (XANAX) 2 mg tablet Take 1 tablet (2 mg total) by mouth 3 (three) times a day as needed for anxiety for up to 12 doses 12 tablet 3 atenoloL (TENORMIN) 50 mg tablet Take 2 tablets (100 mg total) by mouth daily 120 tablet 4 09/18/19 25 bisacodyl EC (DULCOLAX EC) 5 mg EC tabletIndications:c onstipation Take 1 tablet (5 mg total) by mouth daily as needed for constipation 4 tablet 4 cyclobenzaprine (FLEXERIL) 10 mg tablet Take 1 tablet (10 mg total) by mouth 3 (three) times a day as needed for muscle spasms for up to 20 doses 20 tablet 4 diphenhydrAMINE (BENADRYL) 25 mg capsule Take 1 tablet/capsule (25 mg total) by mouth 2 (two) times a day fluticasone propionate (FLONASE) 50 mcg/actuation nasal sprayIndications:No n-seasonal allergic rhinitis, unspecified trigger Administer 2 sprays into each nostril daily 1 Inhaler 5 1 HYDROcodone-acetami nophen (NORCO) 5-325 mg per tabletIndications:P ain Take 1 tablet by mouth every 6 (six) hours as needed for pain for up to 20 doses 20 tablet 4 hydrocortisone (ANUSOL-HC) 25 mg suppository Insert 1 suppository (25 mg total) into the rectum 2 (two) times a day 24 suppository 4 hyoscyamine (LEVSIN) 0.125 mg tabletIndications:U rinary Incontinence Take 1 tablet (0.125 mg total) by mouth every 4 (four) hours as needed for cramping 30 tablet 1 ibuprofen (ADVIL,MOTRIN) 600 mg tablet Take 1 tablet (600 mg total) by mouth every 6 hours 7 meclizine (ANTIVERT) 25 mg tablet Take 1 tablet (25 mg total) by mouth every 12 hours omeprazole (PriLOSEC) 40 mg capsule Take 1 capsule (40 mg total) by mouth daily 60 capsule 4 07/20/20 25 ondansetron ODT (ZOFRAN-ODT) 4 mg disintegrating tablet Take 1 tablet (4 mg total) by mouth every 8 (eight) hours as needed for nausea or vomiting 20 tablet 4 polyethylene glycol (GoLYTELY) 236-22.74-6.74 -5.86 gram solution [...] 4 Liter PEG of Nulytely, 4000 mL 4 polyethylene glycol (MIRALAX) 17 gram packet daily TAKE: 1 packet mixed with 8 ounces of fluid, Once a day promethazine (PHENERGAN) 25 mg tablet Take 1 tablet (25 mg total) by mouth every 6 (six) hours as needed for nausea or vomiting 12 tablet 4 simethicone (MYLICON) 125 mg chewable tablet 125 mg 4 (four) times a day documented as of this encounter Ordered Prescriptions Prescription Sig Dispense Quantity Refills Last Filled Start Date End Date hydrocortisone (ANUSOL-HC) 25 mg suppository Insert 1 suppository (25 mg total) into the rectum 2 (two) times a day 24 suppository 4 hydrocortisone (ANUSOL-HC) 25 mg suppository Insert 1 suppository (25 mg total) into the rectum 2 (two) times a day 24 suppository 4 08/01/20 24 hydrocortisone (ANUSOL-HC) 25 mg suppository Insert 1 suppository (25 mg total) into the rectum 2 (two) times a day 12 suppository 4 08/01/20 24 documented in this encounter Discharge Disposition Disposition Code Departure Means Destination Comment s Discharge to home or self care documented in this encounter ED Notes * Raza Bahena Jr., MD - 08/01/2024 3:10 AM CST HPI Chief Complaint Patient presents with Rectal Bleeding 54-year-old white male presents with history of colon cancer, anxiety about health, mental health issues, presents reporting constipation this past Wednesday, reports he took med citrate, which helpedand he was able to pass some stool on Wednesday. Wednesday evening he passed some stool that had some blood on it and is concerned he has a new hemorrhoid. He gives me a very prolonged and confusing reportof frequently doing self digital exam is, to make sure everything is okay and is concerned that he has cancer again. He denies recent fever, chills, sinus drainage, sore throat, cough, chest pain, shortness of breath, palpitations, near-syncope or syncope. Denies any abdominal pain nausea or vomiting Triage note: Pt states was constipated on Wednesday took Mag citrate, had BM on Wednesday morning with no blood, pt then had bloody BM on Wednesday evening, pt states has a new hemorrhoid, pt very anxious in triage, pt asking questions, pt states no one takes me serious, I keep having to fire doctors , pt states itsprobably cancer , pt states has been doing self rectal exams at [facility] Col[facility] HPI history summary from Last admission CC: I have cancer HPI: Carlos Mcgee is a 54 y.o. male with a history of major depressive disorder, anxiety, type 2 diabetes, who was referred as a self-referral for possible diverticulitis with possible fistula. Patient does not have a PCP Per chart review the patient presented to [facility] earlier this year in January with abdominal pain and constipation. CT report at that time mentions thickening of the descending and sigmoid colon which is consistent with scans dating back to 2020. Patient was recommended to follow up as an outpatient with endoscopic workup. Per chart review this was attempted and it appears scheduled through the GI department however per documentation this was canceled by the patient. Patient has subsequently been seen twice in his local emergency room for both abdominal pain as well as refill of his medications as he still has no PCP. Today, the patient presents and states the history above is inaccurate. Of note his history is tangential and require frequent redirection. He states he saw his local hospital in August and they missed an enlarged spleen at the time he was having pain in ribs. He states it was a Wednesday and the worst time to go to a hospital. States he was given miralax and sent home and was never told about the colon/mass/narrowing. States when he returned in January with bladder pain and pelvic pain and he thought he had a UTI And diverticulitis. He states they wanted to admit him but, they were reaching a little bit and told him he was hurting due to a large spleen. Patient declined admission. States he was told he has diverticulitis and patient states he was told by two different hospitals that he has a fistula. - Patient denies fecaluria, pneumaturia - Patient states he declines pain pills and is concerned about any pain control post-op. - patient hands us a prescription for hydrocodone-acetopminphen that he finished since last ED visit. He is asking for refills today - States he is hoping to find out what is going on today as he is getting different opinions - Has BM daily - states last night was the best BM in weeks. Does not take anything daily to help have a BM. Has previously taken prn magnesium citrate - states 3 hospitals told him he has a fistula - states has pain now in his bladder. States he has seen a urologist at [facility] and underwent extensivetesting and they couldn't find anything due to his colon - states he has lost weight 20lbs and noticed stretch brown - notes he is itchy - states his last GI doctor staff were rude and on professional. I mentioned his colonoscopy reportfrom 2017 and he states that that report is inaccurate and that they told him he had a tumor but then would not work with a local surgeon to help get it removed. - he states he has never gotten a call to schedule a colonoscopy - states he doesn't have a PCP because he was told he has too many problems - stomach, blood pressure. States he gets his refills for blood pressure from the ED Patient History: Patient Active Problem List Diagnosis Date Noted Diverticulitis 07/21/2024 Anemia 05/05/2024 Abnormal finding on GI tract imaging 05/05/2024 Penile pain 12/02/2020 Urinary frequency 12/02/2020 OAB (overactive bladder) 11/09/2020 Lower abdominal pain 11/09/2020 Stricture of sigmoid colon ([facility]) ([facility]) 10/17/2020 Renal calculi 10/17/2020 Irritable bowel syndrome with constipation and diarrhea 10/17/2020 Fistula 10/17/2020 Chronic chest wall pain 10/17/2020 Benzodiazepine abuse ([facility]) 10/17/2020 Xanax use disorder, severe, dependence ([facility]) ([facility]) 11/16/2019 Type 2 diabetes mellitus with other specified complication ([facility]) 11/16/2019 Severe obesity (BMI 35.0-35.9 with comorbidity) ([facility]) 11/16/2019 Benign neoplasm of colon 02/13/2019 Asthma 02/13/2019 Arthritis 02/13/2019 Palpitations 06/27/2018 Other acute recurrent sinusitis 05/10/2018 Moderate episode of recurrent major depressive disorder ([facility]) 03/01/2018 Sleep apnea 03/01/2018 Recurrent major depressive disorder, in partial remission ([facility]) 03/12/2017 Anxiety 03/12/2017 Obesity (BMI 30-39.9) 03/12/2017 Benzodiazepine dependence ([facility]) 03/12/2017 Essential hypertension 03/12/2017 Allergic rhinitis 03/12/2017 Microcytic anemia 07/02/2015 SOB (shortness of breath) 07/02/2015 Type 2 diabetes mellitus without complication ([facility]) ([facility]) 08/28/2014 Paresthesias with subjective weakness 08/28/2014 PTSD (post-traumatic stress disorder) 08/28/2014 Cervical stenosis of spinal canal 08/28/2014 Diverticulitis of colon 09/11/2013 Sedative, hypnotic or anxiolytic abuse, continuous ([facility]) ([facility]) 06/18/2009 Gastroesophageal reflux disease 06/13/2009 Past Medical History: Diagnosis Date Anxiety Arthritis Asthma Benzodiazepine dependence ([facility]) Colon tumor sigmoid benign Depression Diverticulitis Diverticulosis Hypertension PTSD (post-traumatic stress disorder) Recurrent major depressive disorder ([facility]) Type 2 diabetes mellitus ([facility]) Past Surgical History: Procedure Laterality Date CHOLECYSTECTOMY CHOLECYSTECTOMY 2000 Family History Problem Relation Age of Onset Bipolar disorder Mother Anxiety disorder Mother Liver disease Mother Heart disease Father Kidney disease Father Hypertension Mother Hyperlipidemia Mother Mental illness Mother Hypertension Father Stroke Father Hyperlipidemia Father Social History Tobacco Use Smoking status: Former Current packs/day: 0.00 Average packs/day: 1 pack/day for 5.0 years (5.0 ttl pk-yrs) Types: Cigarettes Start date: 1990 Quit date: 1995 Years since quittin.9 Smokeless tobacco: Never Substance and Sexual Activity Alcohol use: Not Currently Drug use: Never Sexual activity: None Social History Social History Narrative Merged History Encounter Patient is . He lives independently. He is employed Review of Systems Review of Systems All other systems reviewed and are negative. Physical Exam ED Triage Vitals Temp Pulse Resp BP SpO2 07/31/24192507/31/24192507/31/24192507/31/24192507/31/241925 36.7 ??C (98 ??F) 64 18 (!) 176/92 98 % Temp src Heart Rate Source Patient Position BP Location FiO2 (%) 07/31/24 1926 08/01/24 0058 11/8 08/01/2457 -- Oral Monitor Sitting Right arm Height Height Method Weight Weight Method -- -- 07/31/24192507/31/241925 121.1 kg (266 lb 15.6 oz) Standing scale Physical Exam Vitals and nursing note reviewed. Constitutional: Appearance: Normal appearance. He is well-developed. Comments: Anxious, oriented x3, very talkative, very difficult to get him to stop talking to ask clarifying questions or to redirect him. He is in no acute distress HENT: Head: Normocephalic and atraumatic. Nose: Nose normal. Mouth/Throat: Mouth: Mucous membranes are moist. Pharynx: No oropharyngeal exudate. Eyes: General: No scleral icterus. Extraocular Movements: Extraocular movements intact. Conjunctiva/sclera: Conjunctivae normal. Pupils: Pupils are equal, round, and reactive to light. Neck: Vascular: No JVD. Trachea: No tracheal deviation. Cardiovascular: Rate and Rhythm: Normal rate and regular rhythm. Heart sounds: Normal heart sounds. No murmur heard. No gallop. Pulmonary: Effort: Pulmonary effort is normal. Breath sounds: Normal breath sounds. No stridor. No wheezing, rhonchi or rales. Chest: Chest wall: No tenderness. Abdominal: General: Bowel sounds are normal. Palpations: Abdomen is soft. There is no mass. Tenderness: There is no abdominal tenderness. There is no guarding or rebound. Genitourinary: Comments: Rectal exam unremarkable, there are hemorrhoid tags but no active hemorrhoids, there was no blood on my finger, stool was soft, no apparent impaction, Musculoskeletal: General: No tenderness. Normal range of motion. Cervical back: Normal range of motion and neck supple. Right lower leg: No edema. Left lower leg: No edema. Skin: General: Skin is warm and dry. Capillary Refill: Capillary refill takes less than 2 seconds. Neurological: General: No focal deficit present. Mental Status: He is alert and oriented to person, place, and time. Cranial Nerves: No cranial nerve deficit. Psychiatric: Mood and Affect: Mood normal. Behavior: Behavior normal. Thought Content: Thought content normal. Differential diagnosis includes rectal bleeding from hemorrhoid, constipation, diverticuli, AVM, malignancy, differential also includes obsessive compulsive disorder, anxiety, anxiety about health, delusions. Labs Reviewed CBC WITH AUTO DIFFERENTIAL - Abnormal Result Value WBC 6.0 Hgb 10.8 (*) Hct 37.0 (*) Plt 171 MPV 9.4 RBC 5.59 MCV 66.2 (*) MCH 19.3 (*) MCHC 29.2 (*) RDW CV 18.5 (*) RDW SD 41.5 NRBC abs 0.00 COMPREHENSIVE METABOLIC PANEL - Abnormal Sodium 138 Potassium, pl 3.6 Chloride 101 CO2 27 Anion gap 10 BUN 11 Creatinine 1.10 Glucose 93 Calcium 9.7 Bilirubin, total 1.3 (*) Protein, pl 7.8 Albumin 4.5 Alk phos 64 ALT 16 AST 21 DIFFERENTIAL AUTO Neutrophil abs 4.0 Imm gran abs 0.0 Lymphocyte abs 1.5 Monocyte abs 0.3 Eosinophil abs 0.1 Basophil abs 0.0 Neutrophil pct 66.7 Imm gran pct 0.2 Lymphocyte pct 25.4 Monocyte pct 5.7 Eosinophil pct 1.5 Basophil pct 0.5 EGFR eGFR 81 No orders to display CT abdomen pelvis showed some chronic thickening of the sigmoid colon without evidence of acute infection Patient had no further episodes of rectal bleeding, pass stool without any blood in the bowl, CBC and CMP unremarkable, reassured patient, suspect bleeding from internal hemorrhoid MDM Medical Decision Making Amount and/or Complexity of Data Reviewed Labs: ordered. Decision-making details documented in ED Course. Radiology: ordered. Decision-making details documented in ED Course. Risk Prescription drug management. Final diagnoses: Anxiety about health Rectal bleeding - Minor, likely hemorrhoidal History of diverticulitis Abnormal CT scan - Wall thickening of sigmoid colon, chronic Raza Bahena Jr., MD 08/16/24 1023 CLABLE MATERIALS COLLECTOR * Elisha Webster RN - 07/31/2024 7:17 PM CST Pt states was constipated on Wednesday took Mag citrate, had BM on Wednesday morning with no blood, pt then had bloody BM on Wednesday evening, pt states has a new hemorrhoid, pt very anxious in triage, pt asking questions, pt states no one takes me serious, I keep having to fire doctors , pt states itsprobably cancer , pt states has been doing self rectal exams at home CLABLE MATERIALS COLLECTOR documented in this encounter Plan of Treatment Scheduled Procedures Name Priority Associated Diagnoses Date/Ti me COLONOSCOPY Open Access Diverticulitis documented as of this encounter Procedures Procedure Name Priority Date/Time Associated Diagnosis Comments EGFR STAT 07/31/2024 7:30 PM RECYCLABLE MATERIALS COLLECTOR DIFFERENTIAL AUTO STAT 07/31/2024 7:3 0 PM RECYCLABLE MATERIALS COLLECTOR CBC WITH AUTO DIFFERENTIAL STAT 07/31/2024 7:30 PM RECYCLABLE MATERIALS COLLECTOR COMPREHENSIVE METABOLIC PANEL STAT 07/31/2024 7:30 PM RECYCLABLE MATERIALS COLLECTOR documented in this encounter Results * eGFR (07/31/2024 7:30 PM RECYCLABLE MATERIALS COLLECTOR) eGFR 81 >=60 mL/min/1. 73 m2 Comment: [...] was last reviewed 2021. Testing performed by: [address] [address] Blood 07/31/2024 7:30 PM RECYCLABLE MATERIALS COLLECTOR 07/31/2024 7:37 PM RECYCLABLE MATERIALS COLLECTOR us Raza Bahena Jr., MD LAB BLOOD ORDERABLES Fi nal Result [facility] [address] [facility] Department [place] [address] * Differential, auto (07/31/2024 7:30 PM RECYCLABLE MATERIALS COLLECTOR) Neutrophil abs 4.0 1.5 - 6.5 K/cumm Comment:Testing performed by : [address] [address] Imm gran abs 0.0 0.0 - 0.1 K/cumm VAL Comment:Testing performed by : [address] [address] Lymphocyte abs 1.5 0.8 - 3.3 K/cumm VAL Comment:Testing performed by : [address] [address] Monocyte abs 0.3 0.2 - 0.8 K/cumm VAL Comment:Testing performed by : [address] [address] Eosinophil abs 0.1 0.0 - 0.5 K/cumm VAL Comment:Testing performed by : [address] [address] Basophil abs 0.0 0.0 - 0.1 K/cumm VAL Comment:Testing performed by : [address] [address] Neutrophil pct 66.7 % VAL Comment: Interpretive Data Percent cell count reference ranges are not reported, since discordance with absolute values may lead to misinterpretation of CBC data. Current Interpretive Data was last revised on 2017. Testing performed by: [address] [address] Imm gran pct 0.2 % VAL Comment: Interpretive Data Percent cell count reference ranges are not reported, since discordance with absolute values may lead to misinterpretation of CBC data. Current Interpretive Data was last revised on 2017. Testing performed by: [address] [address] Lymphocyte pct 25.4 % VAL Comment: Interpretive Data Percent cell count reference ranges are not reported, since discordance with absolute values may lead to misinterpretation of CBC data. Current Interpretive Data was last revised on 2017. Testing performed by: [address] [address] Monocyte pct 5.7 % VAL Comment: Interpretive Data Percent cell count reference ranges are not reported, since discordance with absolute values may lead to misinterpretation of CBC data. Current Interpretive Data was last revised on 2017. Testing performed by: [address] [address] Eosinophil pct 1.5 % VAL Comment: Interpretive Data Percent cell count reference ranges are not reported, since discordance with absolute values may lead to misinterpretation of CBC data. Current Interpretive Data was last revised on 2017. Testing performed by: [address] [address] Basophil pct 0.5 % VAL Comment: Interpretive Data Percent cell count reference ranges are not reported, since discordance with absolute values may lead to misinterpretation of CBC data. Current Interpretive Data was last revised on 2017. Testing performed by: [address] [address] Blood 07/31/2024 7:30 PM RECYCLABLE MATERIALS COLLECTOR 07/31/2024 7:37 PM RECYCLABLE MATERIALS COLLECTOR us Raza Bahena Jr., MD LAB BLOOD ORDERABLES Fi nal Result [facility] [address] [facility] Department of Laboratories [place], [place] [id number] * (ABNORMAL) Comprehensive metabolic panel (07/31/2024 7:30 PM RECYCLABLE MATERIALS COLLECTOR) Sodium 138 135 - 145 mmol/L Comment:Testing performed by : [facility], [address] [place] [address], [place]., [address] Potassium, pl 3.6 3.3 - 4.9 mmol/L [facility] Comment:Testing performed by : [facility], [address] [place] [address], [place]., [address] Chloride 101 97 - 110 mmol/L [facility] Comment:Testing performed by : [address], [place]., [address] CO2 27 22 - 32 mmol/L [facility] Comment:Testing performed by : [address], [place]., [address] Anion gap 10 2 - 15 mmol/L [facility] Comment:Testing performed by : [address], [place]., [address] BUN 11 6 - 25 mg/dL [facility] Comment:Testing performed by : [address], [place]., [address] Creatinine 1.10 0.80 - 1.30 mg/dL [facility] Comment:Testing performed by : [address], [place]., [address] Glucose 93 70 - 199 mg/dL [facility] Comment: Interpretive Data Fasting glucose >/= 126 [...] classification and Diagnosis of Diabetes Diabetes Care 202; 46: S19-S40. Current interpretive data was last revised 2022. Testing performed by: [address] [address] Calcium 9.7 8.5 - 10.3 mg/dL [facility] Comment:Testing performed by : [address], [place]., [address] Bilirubin, total 1.3(H) 0.1 - 1.2 mg/dL [facility] Comment:Testing performed by : [address], [place]., [address] Protein, pl 7.8 6.5 - 8.5 g/dL [facility] Comment:Testing performed by : [address] [address] Albumin 4.5 3.5 - 5.0 g/dL [facility] Comment:Testing performed by : [address] [address] Alk phos 64 40 - 130 Units/L [facility] Comment:Testing performed by : [address] [address] ALT 16 7 - 55 Units/L [facility] Comment:Testing performed by : [address] [address] AST 21 10 - 50 Units/L [facility] Comment:Testing performed by : [address] [address] Blood 07/31/2024 7:30 PM RECYCLABLE MATERIALS COLLECTOR 07/31/2024 7:37 PM RECYCLABLE MATERIALS COLLECTOR us Raza Bahena Jr., MD LAB BLOOD ORDERABLES Fi nal Result [facility] [address] [facility] Department [place] [address] * (ABNORMAL) CBC with auto differential (07/31/2024 7:30 PM RECYCLABLE MATERIALS COLLECTOR) [facility] WBC 6.0 3.8 - 9.9 K/cumm Comment:Testing performed by : [address] [address] Hgb 10.8(L) 13.0 - 17.5 g/dL [facility] Comment:Testing performed by : [address] [address] Hct 37.0(L) 38.9 - 50.3 % [facility] Comment:Testing performed by : [address] [address] Plt 171 150 - 400 K/cumm [facility] Comment:Testing performed by : [address] [address] MPV 9.4 9.1 - 12.3 fL VAL Comment:Testing performed by : [address] [address] RBC 5.59 4.30 - 5.80 M/cumm VAL MULLER Comment:Testing performed by : [address] [address] MCV 66.2(L) 81.3 - 96.4 fL VAL Comment:Testing performed by : [address] [address] MCH 19.3(L) 27.1 - 33.3 pg VAL Comment:Testing performed by : [address], [address] MCHC 29.2(L) 32.3 - 35.7 g/dL VAL Comment:Testing performed by : [address], [address] RDW CV 18.5(H) 11.1 - 14.9 % VAL Comment:Testing performed by : [address], [address] RDW SD 41.5 35.7 - 48.1 fL VAL Comment:Testing performed by : [address] [address] NRBC abs 0.00 0.00 - 0.01 K/cumm VAL Comment:Testing performed by : [address], [address] Blood 07/31/2024 7:30 PM RECYCLABLE MATERIALS COLLECTOR 07/31/2024 7:37 PM RECYCLABLE MATERIALS COLLECTOR us Raza Bahena Jr., MD LAB BLOOD ORDERABLES Fi nal Result VAL [address] [facility] Department [place] [address] documented in this encounter Visit Diagnoses Diagnosis Anxiety about health- Primary Rectal bleeding Hemorrhage of rectum and anus History of diverticulitis Abnormal CT scan Other nonspecific (abnormal) findings on radiological and other examinations of body structure documented in this encounter Discontinued Medications Medication Sig Discontinue Reason Start Date End Da te hydrocortisone (ANUSOL-HC) 25 mg suppository Insert 1 suppository (25 mg total) into the rectum 2 (two) times a day Error 08/01/2024 08/01/2024 hydrocortisone (ANUSOL-HC) 25 mg suppository Insert 1 suppository (25 mg total) into the rectum 2 (two) times a day 08/01/2024 08/01/2024 documented as of this encounter Care Teams Nutrition Tech Relationship Specialty Start Date End Date Unknown, Notinfile PCP - General 08/01/24 Miscellaneous, Not In File 11/16/19 documented as of this encounter
--- OUTSIDE RECORDS SUMMARY | 2024-09-10 04:06 | XMS_ITS | Encounter Summary ---
Author Organization [facility] Address [address] [place] [address] Phone Care Team Providers Care Magento Developer Name Role Phone Miscellaneous, Not In File Unavailable Unava ilable Unknown, Notinfile Primary Care Provider Unavail able Encounter Details Date Type Department Care Team (Late st Contact Info) Description 08/07/2024 Telephone [facility] Surgery [address] [place] [address] Medical Office Building [address] [place] [address] Dennise Johnson RN Social History Tobacco Use Types Packs/Day Years Used Date Smoking Tobacco: Former Cigarettes 1 - 1995 Smokeless Tobacco: Never Alcohol [...] on file Legal Sex Male 1:40 AM LOCOMOTIVE CRANE ENGINEER Gender Identity Not on file Sexual Orientation Not on file documented as of this encounter Miscellaneous Notes * Telephone Encounter - Dennise Johnson RN - 08/07/2024 8:32 PM LOCOMOTIVE CRANE ENGINEER Spoke with patient for approximately 30 minutes attempting to discern what his ask was. The patientis concerned about undergoing colonoscopy as the frequent bowel movements are painful to his rectum. He reports that he would like to get his hemorrhoids taken care of before the colonoscopy. He asked if he could use the suppositories ordered, the hydrocortisone cream, and the desitin on his hemorrhoids. I explained that he should use them and see if they provide any relief. Explained the desitincream is a barrier ointment to protect his skin from frequent bowel movements and wiping. He would like me to ask Dr. Carlton about seeing him for hemorrhoids. ----- Message from Aneesh Escobedo sent at 08/07/2024 2:11 PM LOCOMOTIVE CRANE ENGINEER ----- Regarding: Patient with Nursing Query(s) Patient Query: Was an attempt to transfer to the assigned clinical staff or backline? Yes Reason for call?: His oncology doctor advised him to call first thing Wednesday morning, he has questions regarding the prep for his colonoscopy on 08/17 he also has a concern about being able to even dothe procedure du to his hemorrhoids and is seeking advice on whether or not he should follow through with the procedure. HE is also seeking advice on whether or not he should make an office visit, he declined to be scheduled after being re-assured I had the power to do so. (Read message back to caller and ask them if there is anything else they'd like to add to the message) Who is the caller: The PT What is the best number for them to contact for a call back: [phone] MOTIVE CRANE ENGINEER MOTIVE CRANE ENGINEER documented in this encounter Plan of Treatment Scheduled Procedures Name Priority Associated Diagnoses Date/Ti nm COLONOSCOPY Open Access Diverticulitis documented as of this encounter Visit Diagnoses Not on filedocumented in this encounter Care Teams Magento Developer Relationship Specialty Start Date End Date Unknown, Notinfile PCP - General 08/01/24 Miscellaneous, Not In File 11/16/19 documented as of this encounter
--- OUTSIDE RECORDS SUMMARY | 2024-09-10 04:06 | XMS_ITS | Encounter Summary ---
Author Organization [facility] Healthcare Address [address] [place] [address] Care Team Providers Care Cost Accountant Name Role Phone Miscellaneous, Not In File Unavailable Unava ilable Unknown, Notinfile Primary Care Provider Unavail able Reason for Visit * Reason Onset Date Comments Ready to schedule 07/21/2024 Encounter Details Date Type Department Care Team ([facility] Contact Info) Description 07/21/2024 Telephone [facility] Specialty Services [address] [place] [phone] Miscellaneous, Not In File Ready to schedule Social History Tobacco Use Types Packs/Day Years [...] making you feel afraid or unsafe? 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 Gender Identity Not on file Sexual Orientation Not on file documented as of this encounter Ordered Prescriptions Prescription Sig Dispense Quantity Refills Last Filled Start Date End Date polyethylene glycol (GoLYTELY) 236-22.74-6.74 -5.86 gram solution Drink 2L(half of jug)at 6pm night before procedure and 2L(remainder of jug)at 7:30 am day of test FOLLOW INSTRUCTIONS SENT BY OUR OFFICE 4000 mL 07/21/2024 4 polyethylene glycol (GoLYTELY) 236-22.74-6.74 -5.86 gram solution Drink 2L(half of jug)at 6pm night before procedure and 2L(remainder of jug)at 7:30 am day of test FOLLOW INSTRUCTIONS SENT BY OUR OFFICE 4000 mL 07/21/2024 documented in this encounter Miscellaneous Notes * Addendum Note - Miriam Kramer RN - 07/21/2024 3:16 PM CSTAddended by: MIRIAM KRAMER on: 07/21/2024 03:16 PM Modules accepted: Orders RER WHARF * Addendum Note - Miriam Kramer RN - 07/21/2024 3:13 PM CSTAddended by: MIRIAM KRAMER on: 07/21/2024 03:13 PM Modules accepted: Orders RER WHARF * Telephone Encounter - Miriam Kramer RN - 07/21/2024 2:56 PM CST PROCEDURE Type: Colonoscopy Indication: Diverticulitis Referring Physician: 07/17/24 Date Referred: Cassie Oakley CLINICAL ASSESSMENT 07/21/24 [x] Clinical assessment obtained via phone call with patient N/A []COVID/Flu Screening questions []BMI>45, Weight >350 lbs [] Patient had GI procedure/CPAP clinic/GI clinic <30 days (if Yes, no medical screening questions needed unless new clinical issues in last 30 days) Medical screening questions: BMI/Weight: NA CARDIOVASCULAR: None RESPIRATORY/LUNG: COPD/asthma- If severe (FEV1 < 50% of predicted) or continuous O2 no SC. RENAL/LIVER/GI: None GI: Previous COLON or EGD: Yes/ Both procedures with polyps Hx of Polyps, Kwan, Barretts:no Hx of Constipation:No Have you ever required a two day prep? Yes BLEEDING/CLOTTING: GIB/anemia- Obtain most recent CBC, escalate to referring and GI physician if H&H<7 to consider transfusion NEUROLOGICAL: None ENDOCRINE: None PRIOR PROCEDURE ISSUES: None COMPUTER PROGRAMMING MANAGER/: NA IMPLANTS.: None PSYCH/Behavioral Hx: Yes SC has limited security Notes: PACEMAKER/ICD Y/N: No/NA Device info: Last documented device check: Any shocks since last cards visit (if yes must see cardiology for procedure clearance): DIALYSIS Y/N: No/NA []HD- Schedule on non-HD day, see protocol []PD- Drain PD fluid AM of procedure, if colonoscopy order AB ppx, see protocol REGULAR DIABETIC MEDS Y/N: No/NA []Yes- Discuss diabetes medication management with prescribing physician GLP DIABETIC MEDICATIONS Y/N: No/NA None Educated Patient on the need to hold Medication, and to contact their ordering MD or Life Teacher about bridging medication for procedure. No [] Yes - Letter Sent to Ordering Physician/Life Teacher Date sent: Hold instructions: GLP Weight Loss Medications No Educated Patient on the need to hold Medication, and to contact their ordering MD or Life Teacher about bridging medication for procedure. Y/N: No/NA None [] Yes - Letter Sent to Ordering Physician/Life Teacher Hold older Instructions: BLOOD THINNERS/ANTICOAG/ANTIPLATELET (BESIDES ASA) Medication: NONE Physician contacted for hold order/date sent: Hold order Method sent: Date hold received: Hold instructions: CONTINUE ASPIRIN INFORMATION REQUESTED []Imaging: []Medical Progress Note/H&P []Medication list []Other: PATIENT OPTIMIZATION []Physician reviewing escalation: []CPAP: Date scheduled: Outcome : [] Location limitations: Scheduling Scheduling location limitations: Physician Practice Consultant needed [] NA Language: POA [] NA Name: Required extended education:no SPECIAL PROCEDURE INSTRUCTIONS Scheduling Notes Procedure information Date of procedure: 08/17/24 Time of procedure: 1430 Arrival time: 1330 Location: [facility] Proceduralist: garfield Bettencourt Method of instructions: Verbal []Confirmation of ride/food concession manager []Post anesthesia restrictions given []NPO Instructions: []Diet Instructions: []Take non-blood thinner prescription meds that morning []Bring med list, photo ID, insurance card, no valuables []Bring COVID vaccination card (if vaccinated) Bowel Prep Prep prescribed: Nulytely Method of Bowel Prep (RX): E-Scribe Copy RER WHARF * Telephone Encounter - Nia Castorena - 07/21/2024 2:41 PM CST Tried to schedule Patient called was dropped in the middle of conversation RER WHARF * Telephone Encounter - Miriam Kramer, RN - 07/21/2024 1:27 PM CST Attempted to call patient to schedule, they have a voicemailbox that has not been set up yet, not able to leave a message. Will try patient again before sending letter to referring provider RER WHARF documented in this encounter Plan of Treatment Scheduled Procedures Name Priority Associated Diagnoses Date/Ti ak COLONOSCOPY Open Access Diverticulitis documented as of this encounter Visit Diagnoses Not on filedocumented in this encounter Discontinued Medications Medication Sig Discontinue Reason Start Date End Da te polyethylene glycol (GoLYTELY) 236-22.74-6.74 -5.86 gram solution Drink 2L(half of jug)at 6pm night before procedure and 2L(remainder of jug)at 7:30 am day of test FOLLOW INSTRUCTIONS SENT BY OUR OFFICE 07/21/2024 07/21/2024 documented as of this encounter Care Teams Cost Accountant Relationship Specialty Start Date End Date Unknown, Notinfile PCP - General 04/22/24 07/30/24 Miscellaneous, Not In File 11/16/19 documented as of this encounter
--- OUTSIDE RECORDS SUMMARY | 2024-09-10 04:06 | XMS_ITS | Encounter Summary ---
Author Organization [facility] Healthcare Address [address] [place] [address] Care Team Providers Care Rheostat Assembler Name Role Phone Miscellaneous, Not In File Unavailable Unava ilable Unknown, Notinfile Primary Care Provider Unavail able Adin Lino MD Primary Care Provider + Unknown, Notinfile Primary Care Provider Unavail able Encounter Details Date Type Department Care Team (Late st Contact Info) Description 07/24/2024 Telephone [facility] Specialty Services [address] [place] [phone] Miriam Gongora RN Social History Tobacco Use Types Packs/Day Years Used Date Smoking Tobacco: Former Cigarettes 1 1995 Smokeless Tobacco: Never Alcohol Use Standard [...] on file Legal Sex Male 1:40 AM 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 Attemptedto get him rescheduled at [facility]. Pt informed me that he is no longer with the referring provider andwill need a new referral and is not ready to be scheduled at this time. ON JUNCTURE GRINDER * Telephone Encounter - Miriam Gongora RN - 08/03/2024 1:10 PM CST Had a call from patient that his prep was not correct, the order was correct reached out to his pharmacy and he picked up a 4 liter bottle of bowel prep, as ordered and instructed over the phone and mailed to pt. Reached out to tell patient that he has the correct prep and re go over the two day prep instructions. No answer, voicemail box not yet set up, unable to leave a message. ON JUNCTURE GRINDER * Telephone Encounter - Miriam Gongora RN - 07/24/2024 9:29 AM CST Sent pharmacy to [facility]/ per pt request. ON JUNCTURE GRINDER documented in this encounter Plan of Treatment Scheduled Procedures Name Priority Associated Diagnoses Date/Ti wy COLONOSCOPY Open Access Diverticulitis documented as of this encounter Visit Diagnoses Not on filedocumented in this encounter Discontinued Medications Medication Sig Discontinue Reason Start Date End Da te polyethylene glycol (GoLYTELY) 236-22.74-6.74 -5.86 gram solution Drink 2L(half of jug)at 6pm night before procedure and 2L(remainder of jug)at 7:30 am day of test FOLLOW INSTRUCTIONS SENT BY OUR OFFICE Duplicate order 07/21/2024 07/24/2024 polyethylene glycol (GoLYTELY) 236-22.74-6.74 -5.86 gram solution [...] Two - 4 Liter PEG of Nulytely, 07/24/2024 07/24/2024 documented as of this encounter Care Teams Rheostat Assembler Relationship Specialty Start Date End Date Unknown, Notinfile PCP - General 04/22/24 07/30/24 Adin Lino MD [address] [place] [address] PCP - General Internal Medicine 07/31/24 07/31/24 Unknown, Notinfanita PCP - General 08/01/24 Miscellaneous, Not In File 3/5/20 documented as of this encounter
--- OUTSIDE RECORDS SUMMARY | 2024-09-10 04:06 | XMS_ITS | Encounter Summary ---
Author Organization [facility] Address [address] [place] [address] Phone Care Team Providers Care Cigar Head Stringer Name Role Phone Miscellaneous, Not In File Unavailable Unava ilable Unknown, Notinfile Primary Care Provider Unavail able Encounter Details Date Type Department Care Team (Late st Contact Info) Description 08/09/2024 Telephone [facility] Surgery [address] [place] [address] Medical Office Building [address] [place] [address] Bertha Combs, DOMITILA Social History Tobacco Use Types Packs/Day Years Used Date Smoking Tobacco: Former Cigarettes 1 5 - 1995 Smokeless Tobacco: Never Alcohol Use [...] on file Legal Sex Male 1:40 AM PECAN HULLER Gender Identity Not on file Sexual Orientation Not on file documented as of this encounter Miscellaneous Notes * Telephone Encounter - Bertha Combs RN - 08/09/2024 3:40 PM PECAN HULLER On the phone with patient for 22 mins. Patient called to follow up on phone call from 08/07. Patient stated he might cancel as he might govisit his sister over the weekend as she lives on the [facility]. He hasn't seen his sister in 7 years. Patient having issues with hemorrhoids. Offered clinic evaluation. N HULLER N HULLER documented in this encounter Plan of Treatment Scheduled Procedures Name Priority Associated Diagnoses Date/Ti ri COLONOSCOPY Open Access Diverticulitis documented as of this encounter Visit Diagnoses Not on filedocumented in this encounter Care Teams Cigar Head Stringer Relationship Specialty Start Date End Date Unknown, Notinfile PCP - General 08/01/24 Miscellaneous, Not In File 11/16/19 documented as of this encounter
--- OUTSIDE RECORDS SUMMARY | 2024-09-10 04:06 | XMS_ITS | Encounter Summary ---
Author Organization [facility] Address [address] [place] [address] Phone Care Team Providers Care Light Rail Vehicle Operator Name Role Phone Miscellaneous, Not In File Unavailable Unava Adin Bennett MD Primary Care Provider + Encounter Details Date Type Department Care Team (Late st Contact Info) Description 07/31/2024 Telephone [facility] Surgery [address] [place] [address] Medical Office Building [address] [place] [address] Dennise Johnson RN Social History [...] on file Legal Sex Male 1:40 AM 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 He spoke to the exchange several times this weekend regarding this same issue. He had questions about how to determine if he was bleeding internally from a hemorrhoid or from his stomach. I explained that the blood would look different dependant on where the bleeding was. He also said he has chills. I advised that he report to his local ED if he is concerned about blood loss as I was unable to determine over the phone where it was coming from and how much he is bleeding. He denies dizziness or lightheadedness, says he had SOB last week. He is going to try to find a ride to [facility] facility. RUCTOR EXTENSION WORK documented in this encounter Plan of Treatment Scheduled Procedures Name Priority Associated Diagnoses Date/Ti me COLONOSCOPY Open Access Diverticulitis documented as of this encounter Visit Diagnoses Not on filedocumented in this encounter Care Teams Light Rail Vehicle Operator Relationship Specialty Start Date End Date Adin Lino MD [address] [place] [address] PCP - General Internal Medicine 07/31/24 07/31/24 Miscellaneous, Not In File 11/16/19 documented as of this encounter
--- OUTSIDE RECORDS SUMMARY | 2024-09-10 04:06 | XMS_ITS | Encounter Summary ---
Author Organization [facility] Healthcare Address [address] [place] [address] Care Team Providers Care Information Technology Advisor Name Role Phone Miscellaneous, Not In File Unavailable Unava ilable Unknown, Notinfile Primary Care Provider Unavail able Encounter Details Date Type Department Care Team (Late st Contact Info) Description 07/30/2024 Telephone [facility] Surgeon [address] [place], [place] [phone] Afua Hines MD [address] [facility] [phone] [place], [place] [id number] Social History Tobacco Use Types Packs/Day Years [...] on file Legal Sex Male 1:40 AM FOREST TECHNICIAN Gender Identity Not on file Sexual Orientation Not on file documented as of this encounter Miscellaneous Notes * Telephone Encounter - Afua Hines MD - 07/30/2024 12:20 PM FOREST TECHNICIAN Patient called after having 26 bowel movements over the last 24h. His abdominal pain from yesterdayis improved but his anus hurts and he is having some blood in his stools. Mostly blood streaks. I recommended calmoseptine cream and stiz baths. ST TECHNICIAN documented in this encounter Plan of Treatment Scheduled Procedures Name Priority Associated Diagnoses Date/Ti me COLONOSCOPY Open Access Diverticulitis documented as of this encounter Visit Diagnoses Not on filedocumented in this encounter Care Teams Information Technology Advisor Relationship Specialty Start Date End Date Unknown, Notinfile PCP - General 04/22/24 07/30/24 Miscellaneous, Not In File 11/16/19 documented as of this encounter
--- OUTSIDE RECORDS SUMMARY | 2024-09-10 04:06 | XMS_ITS | Encounter Summary ---
Author Organization [facility] Address [address] [place] [address] Phone Care Team Providers Care Airways Operations Specialist Name Role Phone Miscellaneous, Not In File Unavailable Unava ilable Unknown, Notinfile Primary Care Provider Unavail able Encounter Details Date Type Department Care Team (Late st Contact Info) Description 08/16/2024 Telephone [facility] Surgery [address] [place] [address] Medical Office Building [address] [place] [address] Dennise Johnson RN Social History [...] on file Legal Sex Male 1:40 AM BABY FORMULA MIXER Gender Identity Not on file Sexual Orientation Not on file documented as of this encounter Miscellaneous Notes * Telephone Encounter - Dennise Johnson RN - 08/16/2024 8:43 AM BABY FORMULA MIXER Patient calls to inquire about getting stronger 5% cream for his hemorrhoids, something suggested by pharmacy. He does not know what the name of the medication is. I explained multiple times that in order for us to send in any medications for his hemorrhoids he must be seen in clinic and offered him an appointment next week with Dr. Carlton. He continued to talk about Dr. Urias not seeing him, the ED doctor giving his suppositories for external hemorrhoids, our staff leaving early for Thanksgiving instead of taking phone calls. I tried to redirect the conversation several times, explaining our only option is seeing him in clinic next week. He wants to know why this wasn't addressed at his previous appointment, to which I told him I was not part of thatvisit and do not know, but again, we will see him next week. He became very frustrated and said he was firing Dr. Carlton and hung up. This conversation took place over 15 minutes. FORMULA MIXER documented in this encounter Plan of Treatment Scheduled Procedures Name Priority Associated Diagnoses Date/Ti me COLONOSCOPY Open Access Diverticulitis documented as of this encounter Visit Diagnoses Not on filedocumented in this encounter Care Teams Airways Operations Specialist Relationship Specialty Start Date End Date Unknown, Notinfile PCP - General 08/01/24 Miscellaneous, Not In File 11/16/19 documented as of this encounter
--- OUTSIDE RECORDS SUMMARY | 2024-09-10 04:06 | XMS_ITS | Encounter Summary ---
Author Organization [facility] Address [address] [place] [address] Phone Care Team Providers Care Tanning Wheel Operator Name Role Phone Miscellaneous, Not In File Unavailable Unava ilable Unknown, Notinfile Primary Care Provider Unavail able Reason for Visit * Reason Onset Date Comments Scheduling Appointments 08/14/2024 Encounter Details Date Type Department Care Team (Late st Contact Info) Description 08/14/2024 Telephone [facility] Surgery [address] [place] [address] Medical Office Building [address] [place] [address] Sharon Emanuel Scheduling Appointments Social History Tobacco Use Types Packs/Day Years [...] on file Legal Sex Male 1:40 AM TEST EXAMINER Gender Identity Not on file Sexual Orientation Not on file documented as of this encounter Miscellaneous Notes * Telephone Encounter - Bertha Combs RN - 08/15/2024 1:17 PM TEST EXAMINER Called patient, left voicemail. EXAMINER * Telephone Encounter - Sharon Emanuel - 08/14/2024 10:45 AM CST Spoke with patient he states he's positive for COVID-19 he took a home test. Follow up appointment for 08/15 has been canceled Mr. Mcgee is wanting to follow up with Dr. Carlton before his colonoscopy because of his hemorrhoids. The patient called the [employer] help line he was told to quarantine for 5 days. Patient states I'm nauseous and I cannot use the restroom I was taking magnesium citrate and my anus jerry when I go to the restroom. Could you ask if proctosedyl ointment is ok to use for my hemorrhoids? I think might have cancer I'm losing weight and my body doesn't feel right. Patient was told by [facility] that his insurance isn't in network. Patient was provided the PCP referral number and advise to call the number on the back of his insurance card. Also advise the patient to call the office to schedule his appointment with Dr. Carlton when he's symptom free of Covid. The duration of this call was 41 minutes. EXAMINER EXAMINER * Telephone Encounter - Sharon Emanuel - 08/14/2024 10:44 AM CST ----- Message from Elsie Limon sent at 08/14/2024 10:29 AM TEST EXAMINER ----- Regarding: Dr Carlton cancellation of colonscopy on the 08/17/2024 Patient Query: Was an attempt to transfer to the assigned clinical staff or backline? No Reason for call?: Dr Carlton cancellation and reschedule of colonscopy on the 08/17/2024 also cancellation of appointment on 08/15/2024 Who is the caller: carlos lyric What is the best number for them to contact for a call back: [phone] EXAMINER documented in this encounter Plan of Treatment Scheduled Procedures Name Priority Associated Diagnoses Date/Ti tx COLONOSCOPY Open Access Diverticulitis documented as of this encounter Visit Diagnoses Not on filedocumented in this encounter Care Teams Tanning Wheel Operator Relationship Specialty Start Date End Date Unknown, Notinfile PCP - General 08/01/24 Miscellaneous, Not In File 11/16/19 documented as of this encounter
--- OUTSIDE RECORDS SUMMARY | 2024-09-10 04:06 | XMS_ITS | Encounter Summary ---
Author Organization [facility] Address [address] [facility] [address] [place] [address] Phone Care Team Providers Care Tar Pot Worker Name Role Phone Miscellaneous, Not In File Unavailable Unava ilable Unknown, Notinfile Primary Care Provider Unavail able Reason for Visit * Reason Onset Date Comments Medical Question/Miscellaneous 07/25/2024 Encounter Details Date Type Department Care Team (Late st Contact Info) Description 07/25/2024 Telephone [facility] Surgery [address] [facility] Floor 5 [place] [address] Avelina Carlton MD [address] [facility] [phone] [place] [address] Medical Question/Miscellaneous (/) Social History Tobacco Use Types Packs/Day Years [...] on file Legal Sex Male 1:40 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 Starting Wednesday he had some drainage and not feeling well, this progressed into the weekend and he developed the SOB and rib pain. Wednesday he went to urgent care but they couldn't do an xray. He's not sure if its viral or indigestion so he doubled his omeprazole and started tums. We discussed that it sounded viral and if he develops worsening symptoms he should go to the ER for evaluation MACY OPERATIONS COORDINATOR * Telephone Encounter - Suzy Flower - 07/25/2024 8:10 AM CST Patient called with the following concerns: Chief complaint/symptoms: Discomfort in the ribs, belching/acid reflux. Shortness of breath. Did they have surgery within the last month? No Fevers or Chills: No Nausea or Vomiting: Nausea Yesterday (07/24) Bleeding: No Pain or swelling in extremities: Was this sent to the back line: No Can they send a picture of incision or problem area over MyChart? Not applicable MACY OPERATIONS COORDINATOR documented in this encounter Plan of Treatment Scheduled Procedures Name Priority Associated Diagnoses Date/Ti me COLONOSCOPY Open Access Diverticulitis documented as of this encounter Visit Diagnoses Not on filedocumented in this encounter Care Teams Tar Pot Worker Relationship Specialty Start Date End Date Unknown, Notinfile PCP - General 04/22/24 07/30/24 Miscellaneous, Not In File 11/16/19 documented as of this encounter
--- OUTSIDE RECORDS SUMMARY | 2024-09-10 04:06 | XMS_ITS | Encounter Summary ---
Author Organization [facility] Address [address] [place] [address] Phone Care Team Providers Care Mechanical Engineering Technologist Name Role Phone Miscellaneous, Not In File Unavailable Unava ilable Unknown, Notinfile Primary Care Provider Unavail able Encounter Details Date Type Department Care Team (Late st Contact Info) Description 07/27/2024 Telephone [facility] Surgery [address] [place] [address] Medical Office Building [address] [place] [address] Bertha Combs, DOMITILA Social History [...] on file 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 He is requesting a referral to Urology. He previously canceled and No Showed appointments with Dr. Miller in Urology. I provided the phone number to urology and encouraged him to call their office to schedule. Pt will also call his PCP office to see if they have a cancellation for an earlier appointment. Pt verbalized understanding. Reviewed ED precautions with patient. ----- Message from Reggie Olsen sent at 07/27/2024 12:33 PM BOARDINGHOUSE KEEPER ----- Regarding: Dr. Carlton - Referral Query Patient Query: Was an attempt to transfer to the assigned clinical staff or backline? No Reason for call?: Pt is looking for a referral to a urologist. Pt is having some issues, and every urologist needs a referral before Pt can be seen. Who is the caller: Pt What is the best number for them to contact for a call back: [phone] DINGHOUSE KEEPER DINGHOUSE KEEPER documented in this encounter Plan of Treatment Scheduled Procedures Name Priority Associated Diagnoses Date/Ti sd COLONOSCOPY Open Access Diverticulitis documented as of this encounter Visit Diagnoses Not on filedocumented in this encounter Care Teams Mechanical Engineering Technologist Relationship Specialty Start Date End Date Unknown, Notinfile PCP - General 04/22/24 07/30/24 Miscellaneous, Not In File 11/16/19 documented as of this encounter
--- OUTSIDE RECORDS SUMMARY | 2024-09-10 04:06 | XMS_ITS | Encounter Summary ---
Author Organization [facility] Address [address] [place] [address] Phone Care Team Providers Care Paint Grinder Name Role Phone Miscellaneous, Not In File Unavailable Unava ilable Unknown, Notinfile Primary Care Provider Unavail able Encounter Details Date Type Department Care Team (Late st Contact Info) Description 08/03/2024 Telephone [facility] Surgery [address] [place] [address] Medical Office Building [address] [place] [address] Bertha Combs, DOMITILA Social History [...] on file Legal Sex Male 1:40 AM PRACTICE BILLING ASSOCIATE Gender Identity Not on file Sexual Orientation Not on file documented as of this encounter Miscellaneous Notes * Telephone Encounter - Bertha Combs RN - 08/03/2024 1:06 PM PRACTICE BILLING ASSOCIATE On the phone with patient for 24 minutes. Patient called to report that his hemorrhoids are blocking his rectum. He feels like his left hemorrhoid is larger than since starting Anusol cream. Of note he started using Ansol 08/01/24. Patient called to update to the pharmacy. Updated pharmacy in chart. Pt also reports he is no longer experiencing yellow stools. Pt is feeling much better and no longerexperiencing fever or chills. Patient had an upcoming appointment, however PCP cancelled. Pt stated they won't accept his insurance. I advised that he contact his insurance to see which providers are in network. TICE BILLING ASSOCIATE * Telephone Encounter - Bertha Combs, DOMITILA - 08/03/2024 12:26 PM PRACTICE BILLING ASSOCIATE Called patient, he did not answer. ----- Message from Elsie Limon sent at 08/03/2024 12:10 PM PRACTICE BILLING ASSOCIATE ----- Regarding: Medical Question ATTN of [facility] Patient Query: Was an attempt to transfer to the assigned clinical staff or backline? Yes Reason for call?: Patient is wishing to speak with a nurse pt is having trouble going to bathroom due to hemorrhoids and would like to discuss Who is the caller:Carlos Mgcee What is the best number for them to contact for a call back: [phone] TICE BILLING ASSOCIATE TICE BILLING ASSOCIATE documented in this encounter Plan of Treatment Scheduled Procedures Name Priority Associated Diagnoses Date/Ti me COLONOSCOPY Open Access Diverticulitis documented as of this encounter Visit Diagnoses Not on filedocumented in this encounter Care Teams Paint Grinder Relationship Specialty Start Date End Date Unknown, Notinfile PCP - General 08/01/24 Miscellaneous, Not In File 11/16/19 documented as of this encounter
--- OUTSIDE RECORDS SUMMARY | 2024-09-10 04:06 | XMS_ITS | Encounter Summary ---
Author Organization [facility] Address [address] [place] [address] Phone Care Team Providers Care Tab Builder Name Role Phone Miscellaneous, Not In File Unavailable Unava ilable Unknown, Notinfile Primary Care Provider Unavail able Encounter Details Date Type Department Care Team (Late st Contact Info) Description 07/25/2024 Orders Only [facility] Gastroenterology [address] [facility] 12th [place] [address] [place] [address] Maira Del Rosario RMA Social History Tobacco Use Types Packs/Day Years [...] on file Legal Sex Male 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
--- OUTSIDE RECORDS SUMMARY | 2024-09-10 04:06 | XMS_ITS | Encounter Summary ---
Author Organization [facility] Address [address] [place] [address] Care Team Providers Care Automobile Mechanic Apprentice Name Role Phone Miscellaneous, Not In File Unavailable Unava ilable Unknown, Notinfile Primary Care Provider Unavail able Encounter Details Date Type Department Care Team (Late st Contact Info) Description 07/29/2024 Telephone [facility] Sur[facility] [address] [place], [place] [phone] Afua Hines MD [address] [facility] [phone] [place], [place] [phone] Social History Tobacco Use Types Packs/Day Years [...] on file Legal Sex Male 1:40 AM 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 He took mag citrate this morning and has since had 15-20 bowel movements. He called asking if having hard/formed stools after mag citrate was normal. He also endorsed some crampy abdominal pain with bowel movements. He denied vomiting, fevers and blood in his BM. I reassured patient formed stools was not a cause forconcern. I encouraged him to take tylenol for his abdominal pain. I explained some crampy abdominalpain with bowel movements was within normal limits but recommended he be seen in the emergency roomif his pain became intolerated or if he developed concurrent fevers. N RESOURCES RECRUITER documented in this encounter Plan of Treatment Scheduled Procedures Name Priority Associated Diagnoses Date/Ti me COLONOSCOPY Open Access Diverticulitis documented as of this encounter Visit Diagnoses Not on filedocumented in this encounter Care Teams Automobile Mechanic Apprentice Relationship Specialty Start Date End Date Unknown, Notinfile PCP - General 04/22/24 07/30/24 Miscellaneous, Not In File 11/16/19 documented as of this encounter
--- OUTSIDE RECORDS SUMMARY | 2024-09-10 04:06 | XMS_ITS | CONTINUITY OF CARE DOCUMENT ---
Author Name christian gonzales Address Unknown Organization [facility] Address [address] [place] [address] [address] [place] [address] Phone [phone] Care Team Providers Care Comp Field Case Manager Name Role Phone Emily Garcia MD Unavailable [phone] Emily Garcia MD Unavailable [phone] PROBLEMS Condition Status Date Provider Notes Sleep apnea active Emily Garcia MD Hypertension active Emily aGrcia MD Hyperlipidemia active Emily Garcia MD Diabetes, Type 2 active Emily Garcia MD Chest pain active Emily Garcia MD ENCOUNTERS Date Type Provider Location Encounter Diagnosis - In-person encounter Office Visit Emily Garcia MD [facility] Chest painDiabetes, Type 2HyperlipidemiaHyp ertensionSleep apnea VITAL SIGNS Date Observation Value Provider Body Mass Index (Ratio) 36.97 kg/m2 Kaitlin Garcia MD blood pressure, diastolic 80 mm[Hg] Darcy [facility] blood pressure, systolic 152 mm[Hg] Taylor [facility]ic blood pressure, cuff size large Ke rri Kavita blood pressure, diastolic 80 mm[Hg] Ke rri Kavita blood pressure, systolic 152 mm[Hg] Javier Walls oxygen saturation, oximetry 97 % Michell Walls respiratory rate E&M 16 /min Michell canales pulse rate 68 /min Michell Valente lder weight E&M 288 [lb_av] Michell Valente lder height E&M 74 [in_i] Michell Valente lder ALLERGIES Allergy Name Onset Date Reaction Criticality Status AMELIA INHIBITORS angioedema angioedema High Criti cality active LISINOPRIL angioedema angioedema Low Criticalit y active LOSARTAN angioedema angioedema High Criticali ty active IVP DYE High Criticality active PAXIL Low Criticality active PAIN MEDS Low Criticality active PERCOCET Low Criticality active SULFA Low Criticality active BACTRIM Low Criticality active LEVAQUIN Low Criticality active RESULTS Date Observation Value Provider Reference Range Interpretation Location 3 free thyroxine index 2.5 [facility] 1.2-4.9 3 triiodothyronine resin uptake 22 % [facility] 24-39 Low 3 thyroxine, serum, total 11.2 ug/dL [facility] 4.5-12.0 3 thyroid stimulating hormone, serum 2.350 u[IU]/mL [facility] 0.450-4.500 3 hemoglobin A1C, blood, as % of total hemoglobin 7.1 % [facility] 4.8-5.6 High 3 lipoprotein, beta, serum, point, quantitative, calculated 124 mg/dL [facility] 0-99 High 3 HDL cholesterol, serum 21 mg/dL [facility] >39 Low 3 triglyceride, serum, random 205 mg/dL [facility] 0-149 High 3 cholesterol, serum 182 mg/dL [facility] 063-620 0686/10/2 3 basophil count, absolute 0.0 x10E3/uL [facility] 0.0-0.2 3 Eosinophil Absolute Count 0.2 X10E3/UL [facility] 0.0-0.4 3 monocyte count, blood, automated 0.4 X10E3/UL [facility] 0.1-0.9 3 lymphocyte count, blood, automated 1.8 X10E3/UL [facility] 0.7-3.1 3 Absolute Neutrophils 3.0 X10E3/UL [facility] 1.4-7.0 3 basophils as percent of blood leukocytes 1 % [facility] Not Estab. 3 eosinophils as percent of blood leukocytes 3 % [facility] Not Estab. 3 monocytes as percent of blood leukocytes 8 % [facility] Not Estab. 3 lymphocytes as percent of blood leukocytes 33 % [facility] Not Estab. 3 neutrophils as percent of blood leukocytes 55 % [facility] Not Estab. 3 platelet count 208 X10E3/UL [facility] 907-860 5597/10/2 3 red blood cell distribution width 17.6 % [facility] 11.6-15.4 High 3 mean corpuscular hemoglobin concentration, RBC 30.2 G/DL [facility] 31.5-35.7 Low 3 mean corpuscular hemoglobin, RBC 21.5 pg [facility] 26.6-33.0 Low 3 mean corpuscular volume, RBC 71 fL [facility] 79-97 Low 3 hematocrit, blood 42.1 % [facility] 37.5-51.0 3 hemoglobin, blood 12.7 g/dL [facility] 13.0-17.7 Low 3 erythrocyte (RBC) count 5.91 X10E6/UL [facility] 4.14-5.80 High 3 leukocyte count, blood 5.4 X10E3/UL [facility] 3.4-10.8 3 alanine aminotransferase (SGPT), serum 52 1/L [facility] 0-44 High 3 aspartate aminotransferase (SGOT), serum 46 1/L [facility] 0-40 High 3 alkaline phosphatase, serum 85 1/L [facility] 44-121 3 bilirubin, serum, total 1.1 mg/dL [facility] 0.0-1.2 3 albumin/globulin ratio, serum 1.5 [facility] 1.2-2.2 3 globulin, serum 3.1 [facility] 1.5-4.5 3 albumin, serum 4.6 g/dL [facility] 4.0-5.0 3 protein, total, serum 7.7 g/dL [facility] 6.0-8.5 3 calcium, serum 9.8 mg/dL [facility] 8.7-10.2 3 carbon dioxide, venous blood 26 mmol/L [facility] 20-29 3 chloride, serum 103 mmol/L [facility] 96-106 3 potassium, serum 4.1 mmol/L [facility] 3.5-5.2 3 sodium, serum 142 mmol/L [facility] 905-563 0256/10/2 3 urea nitrogen/creatinine ratio, serum 10 [facility] 9-20 3 eGFR if 111 mL/min/{1 .73_m2} [facility] >59 3 eGFR if not 96 mL/min/{1 .73_m2} [facility] >59 3 creatinine, serum 0.93 mg/dL [facility] 0.76-1.27 3 urea nitrogen, blood 9 mg/dL [facility] 6-24 3 blood glucose, random 107 mg/dL [facility] 65-99 High SOCIAL HISTORY Date Observation Value Provider number of grandchildren Emily Garcia MD social history E&M S moking History: Ariana laurayaritza is a former smoker. Emily Garcia MD social history reviewed E&M revi ewed - no changes required Emily Garcia MD number of years as a smoker 3 a Michell Wooodilonluis smoking history, tot al pack/day 1 ppd Michell Walls smoking, year quit 1995 Michell Santacruz hao cigarette use yes Michell chavez smoking status Former smoker Michell marino INSURANCE PROVIDERS Payer name Policy type / Coverage type [place] [employer] [place] [employer] MEDICAID (2) Medicaid [id number] ADVANCE DIRECTIVES Name Date DISCUSSED - NO DECISION MADE TREATMENT PLAN Date Name Performer [id number],S, Cholesterol, Total 182 mg/dL 100-199 Triglycerides [H] 205 mg/dL 0-149 HDL Cholesterol [L] 21 mg/dL >39 ! VLDL Cholesterol Aristides 37 mg/dL 5-40 LDL Chol Calc (NIH) [H] 124 mg/dL 0-99 Recommend dieatary modifications, see if triglycerides imrpoves, may need to start fish oil. Emily Garcia MD [id number],S, Emily aiken MD [id number],C, n eeds to get w/u done a pparanetly had a cath done 3 yrs ago at [facility] a nd needs to get new /u will do nuclear sress test and echo July 16, 2021 nuclear was denied by insurance s o he had stress echo done but was suboptimal Emily Garcia MD [id number],C, n eeds sleep study done no recent w/u done Emily Garcia MD [id number],C, Cholesterol, Total 182 mg/dL 100-199 Triglycerides [H] 205 mg/dL 0-149 HDL Cholesterol [L] 21 mg/dL >39 ! VLDL Cholesterol Aristides 37 mg/dL 5-40 LDL Chol Calc (NIH) [H] 124 mg/dL 0-99 Recommend dieatary modifications, see if triglycerides imrpoves, may need to start fish oil. Emily Garcia MD [id number],S, Emily aiken MD [id number],C, n eeds to get w/u done a pparanetly had a cath done 3 yrs ago at [facility] a nd needs to get new /u will do nuclear sress test and echo Emily Garcia MD [id number],C, h as angioedema not able to get amelia July 07, 2021 A 1C was 7.1,needs PCP and endcorine eval Emily Garcia MD [id number],C,n eeds sleep study done no recent w/u done Emily Garcia MD [id number],C,needs blood w ork Emily Garcia MD [id number],S,o n atenolol B P today: 152/80 Emily Garcia MD [id number],C,h as angioedema not able to get amelia Emily Garcia MD [id number],C,n eeds to get w/u done a pparanetly had a cath done 3 yrs ago at [facility] a nd needs to get new /u will do nuclear sress test and echo Emily Garcia MD Telehealth: Cholesterol, Total 182 mg/dL 100-199 Triglycerides [H] 205 mg/dL 0-149 HDL Cholesterol [L] 21 mg/dL >39 ! VLDL Cholesterol Aristides 37 mg/dL 5-40 LDL Chol Calc (NIH) [H] 124 mg/dL 0-99 Recommend dieatary modifications, see if triglycerides imrpoves, may need to start fish oil. Emily Garcia MD Telehealth Emily Garcia MD Telehealth: n eeds to get w/u done a pparanetly had a cath done 3 yrs ago at [facility] a nd needs to get new /u will do nuclear sress test and echo July 16, 2021 n uclear was denied by insurance s o he had stress echo done but was suboptimal Emily Garcia MD Telehealth: n eeds sleep study done no recent w/u done Emily Garcia MD Telehealth: Choleste rol, Total 182 mg/dL 100-199 Triglycerides [H] 205 mg/dL 0-149 HDL Cholesterol [L] 21 mg/dL >39 ! VLDL Cholesterol Aristides 37 mg/dL 5-40 LDL Chol Calc ([facility]) [H] 124 mg/dL 0-99 Recommend dieatary modifications, see if triglycerides imrpoves, may need to start fish oil. Emily Garcia MD Telehealth Emily Garcia MD Telehealth: n eeds to get w/u done a pparanetly had a cath done 3 yrs ago at [facility] a nd needs to get new /u will do nuclear sress test and echo Emily Garcia MD Telehealth: h as angioedema not able to get amelia July 07, 2021 A 1C was 7.1,needs PCP and endcorine eval Emily Garcia MD Cardiology:needs sleep study don e no recent w/u done Emily Garcia MD Cardiology:needs blood work Kaitlin Garcia MD Cardiology:on atenol ol B P today: 152/80 Emily Garcia MD Cardiology:has angio edema not able to get amelia Emily Garcia MD Cardiology:needs to get w/u done a pparanetly had a cath done 3 yrs ago at [facility] a nd needs to get new /u will do nuclear sress test and echo Emily Garcia MD Date Name Stress Echo TSH, free T4, total T3 CBC (INCLUDES DIFF/P LT) HEMOGLOBIN A1c LIPID PANEL COMPREHENSIVE METABO LIC PANEL, W/EGFR Sleep Study Home Stress Exercise Card iolite Complete Echo HISTORY OF PROCEDURES Procedure Date Procedure Name Provider Procedure Notes S tatus EKG Emily Garcia MD compl eted
--- OUTSIDE RECORDS SUMMARY | 2024-09-10 04:06 | XMS_ITS | Encounter Summary ---
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 He was told my the pharmacy that it would dry out his bottom. I clarified that it was a barrier cream. [employer] documented in this encounter Plan of Treatment Scheduled Procedures Name Priority Associated Diagnoses Date/Ti me COLONOSCOPY Open Access Diverticulitis documented as of this encounter Visit Diagnoses Not on filedocumented in this encounter Care Teams Contract Writer Relationship Specialty Start Date End Date Unknown, Notinfile PCP - General 04/22/24 07/30/24 Miscellaneous, Not In File 11/16/19 documented as of this encounter
--- OUTSIDE RECORDS SUMMARY | 2024-09-10 04:06 | XMS_ITS | Clinical Summary ---
Author Organization [facility] [address] [place] [phone] Care Team Providers Care Industrial Relations Counselor Name Role Phone Miscellaneous, Not In File Unavailable Unava ilable Unknown, Notinfile Primary Care Provider Unavail able Allergies Active Allergy Reactions Criticality Noted Date [...] pain and frequency. -See either PCP or cultural anthropology professor to manage diabetes. -I told patient that if he fails this, we may need to look at further testing for penile pain. Patient verbalized understanding. OAB (overactive bladder) 11/09/2020 Assessment & Plan (11/13/2020 6:03 PM WASTE HAND): -Symptoms are suggestive of OAB. 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 Discussed with patient that I do not feel this pain is in origin. -Patient states he takes Azo regularly for this pain but doesn't feel it always helps. Stricture of sigmoid colon ([facility]) 10/17/2020 Renal calculi 10/17/2020 Assessment & Plan [...] appointment. Assessment & Plan (11/09/2020 5:20 PM WASTE HAND): -CT showing non-obstructing stones in kidney. Patient [...] abuse 10/17/2020 Xanax use disorder, severe, dependence ([facility]) 11/16/2019 Assessment & Plan (11/16/2019 4:14 PM WASTE HAND): Old psychiatrist, Dr Easley, in [place]. Rx'ed [...] 11/16/2019 Assessment & Plan (11/16/2019 4:11 PM WASTE HAND): Not taking meds as prescribed. Pt asked to leave before A1C could be tested. Severe obesity (BMI 35.0-35.9 with comorbidity) 11/16/2019 Assessment & Plan (11/16/2019 4:14 PM WASTE HAND): Body mass index is 35.12 kg/m??. Unable to vocational guidance counselor him given that he was escorted [...] (03/12/2017): Scheduled appointment with psychiatric, April 01, [facility] in [place]. Anxiety 03/12/2017 Obesity (BMI 30-39.9) 03/12/2017 Benzodiazepine [...] 11/09/2020 Assessment & Plan (11/16/2019 3:59 PM WASTE HAND): Severe with h/o panic attacks with xanax [...] [place]. 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 Wasn't able to see many doctors in the area because he had been fired. Encounters Date Type Department Care Team Description 08/16/2024 Documentation [facility] Surgery [address] [place] [address] Medical Office [place] [address] [place] [phone] Dennise Johnson, DOMITILA 08/16/2024 Telephone [facility] [address] [place] [address] Medical Office Building [address] [place] [phone] Dennise Johnson, DOMITILA 08/16/2024 Orders Only [facility] [address] [place] [address] Medical Office Building [address] [phone] Avelina Carlton MD 08/14/2024 Telephone [facility] [address] [place] [address] [phone] Sharon Emanuel Scheduling Appointments 08/09/2024 Telephone [facility] [address] [place] [address] [phone] Bertha Combs, DOMITILA 08/07/2024 Telephone [facility] [address] [place] [address] [phone] Dennise Johnson, DOMITILA 08/04/2024 Telephone [facility] Floor 5 [place] [address] Tamika Morin, DOMITILA 08/03/2024 Telephone [facility] [address] [facility] Medical Office Building 4 [address] [place] [phone] Bertha Combs, DOMITILA 08/02/2024 Telephone [facility] Surgeon 1 [place] [address] Sharon Alfaro MD 08/02/2024 Telephone [facility] Surgery [address] [facility] Floor 5 [place] [phone] Tamika Morin, DOMITILA 08/01/2024 12:54 AM WASTE HAND - 08/01/2024 5:[address] [facility] Emergency [facility] Emergency Department [address] [place] [address] Raza Bahena Jr., MD Anxiety about health (Primary Dx); Rectal bleeding; History of diverticulitis; Abnormal CT scan Discharge Disposition: Discharge to home or self care 07/31/2024 Telephone [facility] [address] [place] [address] Medical Office Building 4 [address] [place] [phone] Dennise Johnson, DOMITILA 07/30/2024 Telephone [facility] Surgeon 1 [place] [address] Afua Hines MD 07/30/2024 Telephone [facility] Surgeon 1 [place] [address] Afua Hines MD 07/30/2024 Telephone [facility] Surgeon 1 [place] [address] Afua Hines MD 07/29/2024 Telephone [facility] Surgeon 1 [place] [address] Afua Hines MD 07/28/2024 Telephone [facility] Medical Group Primary Care [address] [place] [phone] Adin Lino MD Medical Question/Miscellaneous 07/27/2024 Telephone [facility] [address] [facility] Medical Office Building 4 [address] [place] [phone] Bertha Combs, RN 07/25/2024 Orders Only [facility] Gastroenterology [address] [facility] 12th [place] [address] [place] [address] Maira Del Rosario RMA 07/25/2024 Telephone [facility] [address] [facility] Floor 5 [place] [address] Avelina Carlton MD Medical Question/Miscellaneous (/) 07/24/2024 Telephone [facility] Specialty Services [address] [place] [address] Miriam Gongora RN 07/21/2024 Telephone [facility] Specialty Services [address] [place] [address] Miscellaneous, Not In File Ready to schedule 07/21/2024 Telephone [facility] [address] [place] [address] Medical Office Building [address] [place] [address] Bertha Combs, RN 07/21/2024 Telephone [facility] [address] [place] [address] Medical Office Building [address] [place] [address] Bertha Combs, RN 07/20/2024 12:18 PM WASTE HAND - 07/20/2024 4:[address] [facility] Emergency [facility] Emergency Department [address] [place] [phone] Left lower quadrant abdominal pain (Primary Dx) Discharge Disposition: Discharge to home or self care 07/20/2024 9:15 AM WASTE HAND Office Visit [facility] [address] [place] [address] Avelina Carlton MD Diverticulitis 07/20/2024 Orders Only [facility] [address] [place] [address] Medical Office Building [address] [place] [phone] Sharon Emanuel Does not have primary care provider (Primary Dx) 07/20/2024 Telephone [facility] [address] [place] [address] Medical Office Building [address] [place] [phone] Sharon Emanuel Medical Record Checklist 07/10/2024 Telephone [facility] [address] [place] [address] Floor 5 [place] [address] Brigitte Vaca BS Scheduling Appointments (Patient request ) 06/29/2024 Telephone [facility] [address] [place] [address] Medical Office Building [address] [place] [address] Sharon Emanuel Scheduling Appointments 06/29/2024 Telephone [facility] Surgeon 1 [place] [address] Sharon Alfaro MD 06/24/2024 12:15 AM CDT - 06/24/2024 2:58 AM CDT Emergency [facility] Emergency Department [address] [place] [phone] Ben Leslie MD Diverticulitis (Primary Dx); Essential hypertension Discharge Disposition: Discharge to home or self care 06/23/2024 Telephone [facility] Surgeon [address] [place] [address] Marcy Alba MD 06/21/2024 Telephone [facility] Surgeon 1 [place] [address] Sharon Alfaro MD 06/19/2024 Telephone [facility] [address] [place] [address] Floor 5 [place] [address] Bertha Mcgarry RMA 06/19/2024 Telephone [facility] [address] [place] [address] Floor 5 [place] [address] Sharon Emanuel Reschedule/Medical Concern 06/19/2024 Documentation [facility] Department of Surgery, Section of Colon and Rectal Surgery [address] [facility] 12th Floor, [place] [address] Halina Winslow BLeon CRS Medical Records Checklist 06/12/2024 Telephone [facility] [address] [place] [address] Medical Office Building [address] [place] [address] Bertha Combs RN from Last 3 Months Immunizations Name Administration Dates Next Due Td, Unspecified 09/13/2011 Surgical History Surgery Date Site/Laterality Comments CHOLECYSTECTOMY CHOLECYSTECTOMY 09/13/2000 - 09/12/2001 Medical History Medical History Date Comments Hypertension Diverticulosis Arthritis PTSD (post-traumatic stress disorder) Depression Recurrent major depressive disorder (HCC) Benzodiazepine dependence (HCC) Anxiety Type 2 diabetes mellitus (HCC) Asthma Colon tumor sigmoid benign Diverticulitis Family History Medical History Relation Name Comments Heart disease Father Hyperlipidemia Father Hypertension Father Kidney disease Father Stroke Father Anxiety disorder Mother Bipolar disorder Mother Hyperlipidemia Mother Hypertension Mother Liver disease Mother Mental illness Mother Relation Name Status Comments Father 86 age Mother Alive Social History Tobacco Use Types Packs/Day [...] on file Legal Sex Male 1:40 AM WASTE HAND Gender Identity Not on file Sexual Orientation Not on file Obstetrics History Last Filed Vital Signs Vital Sign Reading Time Taken Comments Blood Pressure 138/94 08/01/2024 5:05 AM WASTE HAND Pulse 60 08/01/2024 5:05 AM WASTE HAND Temperature 36.7 ??C (98 ??F) 07/31/2024 7:26 PM WASTE HAND Respiratory Rate 16 08/01/2024 5:05 AM WASTE HAND Oxygen Saturation 99% 08/01/2024 5:05 AM WASTE HAND Inhaled Oxygen Concentration - - Weight 121.1 kg (266 lb 15.6 oz) 07/31/2024 7:26 PM WASTE HAND Height 188 cm (6' 2 ) 07/20/2024 11:17 AM WASTE HAND Body Mass Index 34.28 07/20/2024 11:17 AM WASTE HAND Plan of Treatment Scheduled Procedures Name Priority Associated Diagnoses Date/Ti me COLONOSCOPY Open Access Diverticulitis Health Maintenance Due Date Last Done Comments Albumin Creatinine Ratio, Urine 1972 Hepatitis C Screening 1972 Prostate Cancer Screening-PSA 1972 Dilated Eye Exam 1972 Foot Exam 1972 Pneumococcal vaccine <65 (1 of 2 - PCV) 02/09/1978 Hepatitis B Screening 02/09/1990 Regular Well Visit/Exam 18-64 02/09/1990 DTaP/Tdap/Td Vaccine (1 - Tdap) 09/14/2011 2 Hemoglobin A1C 07/24/2020 01/22/2020, 1003/2018, 03/01/2018 Depression Screening 11/15/2020 11/16/2019, 11/16/2019, 03/12/2017 Lipid Panel 01/21/2021 01/22/2020, 03/2020, 03/26/2019, Additional history exists Zoster Vaccine (1 of 2) 02/09/2022 Influenza Vaccine (#1) 2024 eGFR 07/31/2025 07/31/2024, 06/13, 01/18/2024, Additional history exists Colon Cancer Screening-Colonoscopy 07/01/20272016 Procedures Procedure Name Priority Date/Time Associated Diagnosis Comments EGFR STAT 07/31/2024 7:30 PM WASTE HAND DIFFERENTIAL AUTO STAT 07/31/2024 7:3 0 PM WASTE HAND COMPREHENSIVE METABOLIC PANEL STAT 07/31/2024 7:30 PM WASTE HAND CBC WITH AUTO DIFFERENTIAL STAT 07/31/2024 7:30 PM WASTE HAND URINALYSIS AND REFLEX TO MICROSCOPIC AND CULTURE STAT 07/20/2024 11:[address] ABDOMEN PELVIS WO CONTRAST ED 06/23/2024 [...] Maintenance Results * eGFR (07/31/2024 7:30 PM WASTE HAND) eGFR 81 >=60 mL/min/1. 73 m2 Comment: [...] of Race in Diagnosing Kidney Disease, JASN 202). The CKD-EPI equation should not be used for patients with unstable renal function and has not been validated in children and those over 70. Current interpretive data was last reviewed 2021. Testing performed by: [address] [address] Blood 07/31/2024 7:30 PM WASTE HAND 07/31/2024 7:37 PM WASTE HAND us Raza Bahena Jr., MD LAB BLOOD ORDERABLES Fi nal Result [facility] [address] [facility] Department [place] [address] * Differential, auto (07/31/2024 7:30 PM WASTE HAND) Neutrophil abs 4.0 1.5 - 6.5 K/cumm Comment:Testing performed by : [address] [address] Imm gran abs 0.0 0.0 - 0.1 K/cumm VAL Comment:Testing performed by : [address] [address] Lymphocyte abs 1.5 0.8 - 3.3 K/cumm VAL Comment:Testing performed by : [address] [address] Monocyte abs 0.3 0.2 - 0.8 K/cumm VAL Comment:Testing performed by : [address] [address] Eosinophil abs 0.1 0.0 - 0.5 K/cumm VAL Comment:Testing performed by : [address] [address] Basophil abs 0.0 0.0 - 0.1 K/cumm VAL Comment:Testing performed by : [address] [address] Neutrophil pct 66.7 % VAL Comment: Interpretive Data Percent cell count reference ranges are not reported, since discordance with absolute values may lead to misinterpretation of CBC data. Current Interpretive Data was last revised on 2017. Testing performed by: [address] [address] Imm gran pct 0.2 % CERNER Comment: Interpretive Data Percent cell count reference ranges are not reported, since discordance with absolute values may lead to misinterpretation of CBC data. Current Interpretive Data was last revised on 2017. Testing performed by: [address] [address] Lymphocyte pct 25.4 % CERNER Comment: Interpretive Data Percent cell count reference ranges are not reported, since discordance with absolute values may lead to misinterpretation of CBC data. Current Interpretive Data was last revised on 2017. Testing performed by: [address] [address] Monocyte pct 5.7 % [facility] Comment: Interpretive Data Percent cell count reference ranges are not reported, since discordance with absolute values may lead to misinterpretation of CBC data. Current Interpretive Data was last revised on 2017. Testing performed by: [address] [address] Eosinophil pct 1.5 % [facility] Comment: Interpretive Data Percent cell count reference ranges are not reported, since discordance with absolute values may lead to misinterpretation of CBC data. Current Interpretive Data was last revised on 2017. Testing performed by: [address] [address] Basophil pct 0.5 % [facility] Comment: Interpretive Data Percent cell count reference ranges are not reported, since discordance with absolute values may lead to misinterpretation of CBC data. Current Interpretive Data was last revised on 2017. Testing performed by: [address] [address] Blood 07/31/2024 7:30 PM WASTE HAND 07/31/2024 7:37 PM WASTE HAND us Raza Bahena Jr., MD LAB BLOOD ORDERABLES Fi nal Result VAL [address] [facility] Department [place] [address] * (ABNORMAL) CBC with auto differential (07/31/2024 7:30 PM WASTE HAND) [facility] WBC 6.0 3.8 - 9.9 K/cumm Comment:Testing performed by : [address] [address] Hgb 10.8(L) 13.0 - 17.5 g/dL VAL Comment:Testing performed by : [address] [address] Hct 37.0(L) 38.9 - 50.3 % VAL Comment:Testing performed by : [address] [address] Plt 171 150 - 400 K/cumm VAL Comment:Testing performed by : [address] [address] MPV 9.4 9.1 - 12.3 fL VAL Comment:Testing performed by : [address] [address] RBC 5.59 4.30 - 5.80 M/cumm VAL Comment:Testing performed by : [address] [address] MCV 66.2(L) 81.3 - 96.4 fL VAL Comment:Testing performed by : [address] [address] MCH 19.3(L) 27.1 - 33.3 pg VAL Comment:Testing performed by : [address] [address] MCHC 29.2(L) 32.3 - 35.7 g/dL VAL Comment:Testing performed by : [address] [address] RDW CV 18.5(H) 11.1 - 14.9 % VAL Comment:Testing performed by : [address] [address] RDW SD 41.5 35.7 - 48.1 fL VAL MULLER Comment:Testing performed by : [address] [address] NRBC abs 0.00 0.00 - 0.01 K/cumm VAL MULLER Comment:Testing performed by : [address] [address] Blood 07/31/2024 7:30 PM WASTE HAND 07/31/2024 7:37 PM WASTE HAND us Raza Bahena Jr., MD LAB BLOOD ORDERABLES Fi nal Result VAL [address] [facility] Department [place] [address] * (ABNORMAL) Comprehensive metabolic panel (07/31/2024 7:30 PM WASTE HAND) Sodium 138 135 - 145 mmol/L Comment:Testing performed by : [address] [address] Potassium, pl 3.6 3.3 - 4.9 mmol/L VAL MULLER Comment:Testing performed by : [address] [address] Chloride 101 97 - 110 mmol/L VAL Comment:Testing performed by : [address] [address] CO2 27 22 - 32 mmol/L VAL MULLER Comment:Testing performed by : [address] [address] Anion gap 10 2 - 15 mmol/L VAL Comment:Testing performed by : [address] [address] BUN 11 6 - 25 mg/dL VAL Comment:Testing performed by : [address] [address] Creatinine 1.10 0.80 - 1.30 mg/dL VAL MULLER Comment:Testing performed by : [address] [address] Glucose 93 70 - 199 mg/dL VAL MULLER Comment: Interpretive Data Fasting glucose >/= 126 [...] was last revised 2022. Testing performed by: [address] [address] Calcium 9.7 8.5 - 10.3 mg/dL VAL Comment:Testing performed by : [address] [address] Bilirubin, total 1.3(H) 0.1 - 1.2 mg/dL VAL Comment:Testing performed by : [address] [address] Protein, pl 7.8 6.5 - 8.5 g/dL VAL Comment:Testing performed by : [address] [address] Albumin 4.5 3.5 - 5.0 g/dL VAL Comment:Testing performed by : [address] [address] Alk phos 64 40 - 130 Units/L VAL Comment:Testing performed by : [address] [address] ALT 16 7 - 55 Units/L VAL Comment:Testing performed by : [address] [address] AST 21 10 - 50 Units/L VAL Comment:Testing performed by : [address] [address] Blood 07/31/2024 7:30 PM WASTE HAND 07/31/2024 7:37 PM WASTE HAND us Raza Bahena Jr., MD LAB BLOOD ORDERABLES Fi nal Result VAL [address] [facility] Department [place] [address] * Urinalysis reflex to microscopic and culture Urine, clean voided (07/20/2024 11:29 AM WASTE HAND) Color, ur Yellow Yellow Comment:Testing performed by : [address] [address] Clarity, ur Clear Clear VAL Comment:Testing performed by : [address] [address] Specific gravity, ur 1.015 1.003 - 1.030 VAL Comment:Testing performed by : [address] [address] pH, urine 5.5 VAL Comment: Interpretive Data ? Urine pH is affected by diet, medications, systemic acid-base disturbances, and renal tubular function. ??pH may affect urinary stone formation. ??For example, urine pH below 6.0 may help reduce the tendency for calcium phosphate stones and pH greater than 6.0 may reduce the tendency for uric acid stone formation. Source: [facility] Current Interpretive Data was last revised on 2017 Testing performed by: [address] [address] Protein, ur ql Negative Negative VAL MULLER Comment:Testing performed by : [address] [address] Glucose, ur ql Negative Negative VAL Comment:Testing performed by : [address] [address] Ketones, ur Negative Negative VAL MULLER Comment:Testing performed by : [address] [address] Bilirubin, ur Negative Negative VAL Comment:Testing performed by : [address] [address] Blood, ur Negative Negative VAL MULLER Comment:Testing performed by : [address] [address] Urobilinogen, ur <2.0 <2.0 mg/dL VAL MULLER Comment:Testing performed by : [address] [address] Nitrite, ur Negative Negative VAL Comment:Testing performed by : [facility], [address] [place] [address]., [address] Leukocyte esterase, ur Negative Negative VAL Comment:Testing performed by : [address] [address] UA reflex comment Reflex conditions for microscopic UA and culture not met. VAL Comment:Testing performed by : [address] [address] Urine, clean voided 07/20/2024 11:29 AM WASTE HAND 07/20/2024 11:34 AM WASTE HAND us Zayda Ku MD LAB MICROBIOLOGY - GEN ERAL ORDERABLES Final Result VAL [address] [facility] Department [place] [address] * CT Abdomen Pelvis WO Contrast (06/23/2024 [...] appointment with colorectal dr x 06/29 at [place]. ?? Hx linda ?? TECHNIQUE: CT scan [...] PM T: ??06/23/2024 11:37 PM Report ID: [id number] Reading Location: ??[id number] Procedure Note Dave Martin MD - 06/23/2024 EXAM DESCRIPTION: CT ABDOMEN PELVIS WO CONTRAST REASON FOR STUDY: Abdominal pain, acute, nonlocalized Penis, bladder and colon pain with chills x 2 months worse today. [facility] appointment with colorectal dr x 06/29 at [place]. Hx linda TECHNIQUE: CT scan of the [...] Dave Martin M.D. KH: TATIANA Report ID: [id number] Reading Location: [place] [address] us Jaimie Brigitteromel Johnson CUSTOM FEED [employer]N OPERATOR IMG CT PROCEDURES Final Result * Lactate (06/23/2024 10:05 PM CDT) Pathologist [facility] Lactate 1.5 0.7 - 2.0 mmol/L Comment:Testing performed by : [facility], [address] [place] [address]., [address] Blood 06/23/2024 10:0 5 PM CDT 06/23/2024 10:08 PM CDT us Ben Leslie MD LAB BLOOD ORDERABLES Final Result Performing Organization Address City/State/[facility] Co de Phone Number [facility] [address] [facility] Department [place] [address] * eGFR (06/23/2024 10:02 PM [...] was last reviewed 2021. Testing performed by: [address] [address] Blood 06/23/2024 10:0 2 PM CDT 06/23/2024 10:08 PM CDT us Ben Leslie MD LAB BLOOD ORDERABLES Final Result [facility] [address] [facility] Department [place] [address] * Differential, auto (06/23/2024 10:02 PM CDT) Pathologist [facility] Neutrophil abs 3.5 1.5 - 6.5 K/cumm Comment:Testing performed by : [address] [address] Imm gran abs 0.0 0.0 - 0.1 K/cumm VAL Comment:Testing performed by : [address] [address] Lymphocyte abs 1.0 0.8 - 3.3 K/cumm VAL Comment:Testing performed by : [address] [address] Monocyte abs 0.2 0.2 - 0.8 K/cumm VAL Comment:Testing performed by : [address] [address] Eosinophil abs 0.1 0.0 - 0.5 K/cumm VLA Comment:Testing performed by : [address] [address] Basophil abs 0.0 0.0 - 0.1 K/cumm VAL Comment:Testing performed by : [address] [address] Neutrophil pct 73.1 % VAL Comment: Interpretive Data Percent cell count reference ranges are not reported, since discordance with absolute values may lead to misinterpretation of CBC data. Current Interpretive Data was last revised on 2017. Testing performed by: [address] [address] Imm gran pct 0.2 % [facility] Comment: Interpretive Data Percent cell count reference ranges are not reported, since discordance with absolute values may lead to misinterpretation of CBC data. Current Interpretive Data was last revised on 2017. Testing performed by: [address] [address] Lymphocyte pct 20.5 % [facility] Comment: Interpretive Data Percent cell count reference ranges are not reported, since discordance with absolute values may lead to misinterpretation of CBC data. Current Interpretive Data was last revised on 2017. Testing performed by: [address] [address] Monocyte pct 4.6 % [facility] Comment: Interpretive Data Percent cell count reference ranges are not reported, since discordance with absolute values may lead to misinterpretation of CBC data. Current Interpretive Data was last revised on 2017. Testing performed by: [address] [address] Eosinophil pct 1.0 % [facility] Comment: Interpretive Data Percent cell count reference ranges are not reported, since discordance with absolute values may lead to misinterpretation of CBC data. Current Interpretive Data was last revised on 2017. Testing performed by: [address] [address] Basophil pct 0.6 % [facility] Comment: Interpretive Data Percent cell count reference ranges are not reported, since discordance with absolute values may lead to misinterpretation of CBC data. Current Interpretive Data was last revised on 2017. Testing performed by: [address] [address] Blood 06/23/2024 10:0 2 PM CDT 06/23/2024 10:08 PM CDT us Ben Leslie MD LAB BLOOD ORDERABLES Final Result VAL [address] [facility] [place] [address]23 * (ABNORMAL) Urinalysis reflex to microscopic and culture Urine (06/23/2024 10:02 PM CDT) Color, ur Yellow Yellow Comment:Testing performed by : [address] [address] Clarity, ur Clear Clear VAL Comment:Testing performed by : [address] [address] Specific gravity, ur 1.014 1.003 - 1.030 VAL Comment:Testing performed by : [address] [address] pH, urine 6.0 VAL Comment: Interpretive Data ? Urine pH is affected by diet, medications, systemic acid-base disturbances, and renal tubular function. ??pH may affect urinary stone formation. ??For example, urine pH below 6.0 may help reduce the tendency for calcium phosphate stones and pH greater than 6.0 may reduce the tendency for uric acid stone formation. Source: [facility] Current Interpretive Data was last revised on 2017 Testing performed by: [address] [address] Protein, ur ql Trace(A) Negative VAL Comment:Testing performed by : [address] [address] Glucose, ur ql Negative Negative VAL Comment:Testing performed by : [address] [address] Ketones, ur Negative Negative VAL Comment:Testing performed by : [address] [address] Bilirubin, ur Negative Negative VAL Comment:Testing performed by : [address] [address] Blood, ur Negative Negative VAL Comment:Testing performed by : [address] [address] Urobilinogen, ur <2.0 <2.0 mg/dL VAL Comment:Testing performed by : [address] [address] Nitrite, ur Negative Negative VAL MULLER Comment:Testing performed by : [address] [address] Leukocyte esterase, ur 1+(A) Negative VAL MULLER Comment:Testing performed by : [address] [address] UA reflex comment Reflex to microscopic UA will be performed. VAL MULLER Comment:Testing performed by : [address] [address] Urine 06/23/2024 10:0 2 PM CDT 06/23/2024 10:15 PM CDT us Ben Leslie MD LAB MICROBIOLOGY - GENERAL ORDERABLES Final Result VAL MULLER [facility] Department [place] [address] * (ABNORMAL) CBC with auto differential (06/23/2024 10:02 PM CDT) WBC 4.8 3.8 - 9.9 K/cumm Comment:Testing performed by : [address] [address] Hgb 10.6(L) 13.0 - 17.5 g/dL VAL MULLER Comment:Testing performed by : [address] [address] Hct 36.4(L) 38.9 - 50.3 % VAL MULLER Comment:Testing performed by : [address] [address] Plt 193 150 - 400 K/cumm VAL MULLER Comment:Testing performed by : [address] [address] MPV 9.0(L) 9.1 - 12.3 fL VAL MULLER Comment:Testing performed by : [address] [address] RBC 5.47 4.30 - 5.80 M/cumm VAL MULLER Comment:Testing performed by : [address] [address] MCV 66.5(L) 81.3 - 96.4 fL VAL MULLER Comment:Testing performed by : [facility], [address] [place] [address]., [address] MCH 19.4(L) 27.1 - 33.3 pg VAL MULLER Comment:Testing performed by : [address] [address] MCHC 29.1(L) 32.3 - 35.7 g/dL VAL MULLER Comment:Testing performed by : [address] [address] RDW CV 17.6(H) 11.1 - 14.9 % VAL MULLER Comment:Testing performed by : [address] [address] RDW SD 40.2 35.7 - 48.1 fL VAL MULLER Comment:Testing performed by : [address] [address] NRBC abs 0.00 0.00 - 0.01 K/cumm VAL Comment:Testing performed by : [address] [address] Blood (Blood, Venous) 06/23/2024 10:02 PM CDT 06/23/2024 10:08 PM CDT us Ben Leslie MD LAB BLOOD ORDERABLES Final Result VAL 57[address] [facility] Department of Laboratories [place], [place] [id number] * (ABNORMAL) Urinalysis, microscopic only (06/23/2024 10:02 PM CDT) WBC, ur 0-5 0 - 5 /HPF Comment:Testing performed by : [address] [address] RBC, ur 0-2 0 - 2 /HPF VAL MULLER Comment:Testing performed by : [address] [address] Epithelial cells, squamous, ur 1-5 0 - 5 /HPF VAL MULLRE Comment:Testing performed by : [address] [address] Mucous, ur Present(A) VAL Comment:Testing performed by : [address] [address] Hyaline casts, ur 1-5 0 - 10 /LPF VAL MULLER Comment:Testing performed by : [address] [address] Culture Reflex Comment Reflex conditions for urine culture (WBC >10) not met. VAL Comment:Testing performed by : [address] [address] Urine 06/23/2024 10:0 2 PM CDT 06/23/2024 10:15 PM CDT Ben Leslie MD LAB URINE ORDERABLES Final Result Performing Organization Address [facility] Co de Phone Number [address] [place] [address] * Lipase (06/23/2024 10:02 PM CDT) Pathologist [facility] Lipase 28 10 - 99 Units/L Comment:Testing performed by : [address] [address] Blood (Blood, Venous) 06/23/2024 10:02 PM CDT 06/23/2024 10:08 PM CDT Ben Leslie MD LAB BLOOD ORDERABLES Final Result Performing Organization Address City/[facility] de Phone Number [address] [address] * (ABNORMAL) Comprehensive metabolic panel (06/23/2024 10:02 PM CDT) Pathologist [facility] Sodium 139 135 - 145 mmol/L Comment:Testing performed by : [address] [address] Potassium, pl 3.4 3.3 - 4.9 mmol/L VAL MULLER Comment:Testing performed by : [address] [address] Chloride 100 97 - 110 mmol/L VAL Comment:Testing performed by : [address], [place]., [address] CO2 27 22 - 32 mmol/L VAL Comment:Testing performed by : [address], [place]., [address] Anion gap 12 2 - 15 mmol/L VAL Comment:Testing performed by : [address], [place]., [address] BUN 9 6 - 25 mg/dL [facility] Comment:Testing performed by : [address], [place]., [address] Creatinine 1.10 0.80 - 1.30 mg/dL VAL Comment:Testing performed by : [address], [place]., [address] Glucose 150 70 - 199 mg/dL [facility] Comment: Interpretive Data Fasting glucose >/= 126 [...] was last revised 2022. Testing performed by: [address] [address] Calcium 9.6 8.5 - 10.3 mg/dL VAL Comment:Testing performed by : [address] [address] Bilirubin, total 1.3(H) 0.1 - 1.2 mg/dL VAL Comment:Testing performed by : [address] [address] Protein, pl 7.9 6.5 - 8.5 g/dL VAL Comment:Testing performed by : [address], [place]., [address] Albumin 4.4 3.5 - 5.0 g/dL VAL Comment:Testing performed by : [facility], [address] [place] [address]., [address] Alk phos 63 40 - 130 Units/L VAL Comment:Testing performed by : [address] [address] ALT 13 7 - 55 Units/L VAL Comment:Testing performed by : [address] [address] AST 23 10 - 50 Units/L VAL Comment:Testing performed by : [address] [address] Blood 06/23/2024 10:0 2 PM CDT 06/23/2024 10:08 PM CDT us Ben Leslie MD LAB BLOOD ORDERABLES Final Result Performing Organization Address [facility] Co de Phone Number [address] Department [place] [address] * (ABNORMAL) Hemoglobin A1c (01/22/2020 9:58 AM CDT) Hemoglobin A1c % 6.2(H) 4.0 - 5.6 % [facility] Comment: ADA 2016 GUIDELINES: ??Initial Diagnostic Criteria ? HbA1c Result: ?Interpretation: ?<5.7% ? Normal ?5.7-6.4% ?At risk for diabetes mellitus ?>=6.5% ?Consistent with diabetes mellitus ??Diabetes monitoring ? Target value (ADA Recommended) ?? <7% 01/22/2020 9:58 AM CDT 01/22/2020 10:14 AM CDT Narrative Resulting Agency Comment CLI us Charanjit Sheffield MD LAB BLOOD ORDERABLES Final Result Performing Organization Address [facility] Co de Phone Number [facility] [address] [phone] * (ABNORMAL) Lipid panel (01/22/2020 9:58 AM CDT) Triglycerides 173(H) 0 - 149 mg/dL [facility] Comment: National Lipid Association/NCEP Guidelines: ?? Normal ?< 150 mg/dL ?? Borderline high ?? 150-199 mg/dL ?? High ?200-499 mg/dL ?? Very High ? >=500 mg/dL Cholesterol 152 0 - 199 mg/dL [facility] Comment: National Lipid Association/NCEP Guidelines: Desirable ? < 200 mg/dL Borderline high: ??200-239 mg/dL High Risk: ?>=240 mg/dL HDL Cholesterol 22 mg/dL [facility] Comment: Reference Ranges: ? Males: >=40 mg/dL ? Females: >=50 mg/dL LDL Cholesterol, Calc 95 0 - 129 mg/dL [facility] Comment: National Lipid Association/NCEP Guidelines: ??Optimal ? < 100 mg/dL ??Near Optimal ?100-129 mg/dL ??Borderline high 130-159 mg/dL ??High ?>=160 mg/dL Cholesterol/HDL Ratio 6.9 [facility] Comment: Optimal ??< 3.5:1 High ? > 5:1 01/22/2020 9:58 AM CDT 01/22/2020 10:14 AM CDT Narrative Resulting Agency Comment CLI us Charanjit Sheffield MD LAB BLOOD ORDERABLES Final Result [facility] [address] [phone] * COLONOSCOPY REPORT (07/01/2017) Anatomical Region Laterality Modality Other us Provider Scanning GI PROCEDURE ORDERABLES Edited Result - Final from Last 3 Months or Most Recently Relevant to Health Maintenance Insurance Care Teams Industrial Relations Counselor Relationship Specialty Start Date End Date Unknown, Notinfile PCP - General 08/01/24 Miscellaneous, Not In File 11/16/19
--- OUTSIDE RECORDS SUMMARY | 2024-09-10 04:06 | XMS_ITS | Encounter Summary ---
Author Organization 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 CRS team aware that patient no longer wants to be seen by Dr. Carlton. Records will be sent to new provider when release of records has been received. Jay Franco C/R Nurse Triage Pool; Ariana Ocasio C/R Ma Clinical Pool Patient Query: Was an attempt to transfer to the assigned clinical staff or backline? No Reason for call?: Pt called in to notify the team that they no longer want to be a patient of Dr. Demarco. Pt is unhappy with the care they received. Pt would like no further contact with the team (nocalls, messages, texts). Who is the caller: Carlos Mcgee What is the best number for them to contact for a call back: ODIAL SUPERVISOR ODIAL SUPERVISOR documented in this encounter Plan of Treatment Scheduled Procedures Name Priority Associated Diagnoses Date/Ti or COLONOSCOPY Open Access Diverticulitis documented as of this encounter Visit Diagnoses Not on filedocumented in this encounter Care Teams Director Diabetes Relationship Specialty Start Date End Date Unknown, Notinfile PCP - General 08/01/24 Miscellaneous, Not In File 11/16/19 documented as of this encounter
--- OUTSIDE RECORDS SUMMARY | 2024-09-10 04:06 | XMS_ITS | Encounter Summary ---
Author Organization [facility] Address [address] [place] [address] Phone Care Team Providers Care Horticulture/Floriculture Teacher Name Role Phone Miscellaneous, Not In File Unavailable Unava ilable Unknown, Notinfile Primary Care Provider Unavail able Encounter Details Date Type Department Care Team (Late st Contact Info) Description 07/21/2024 Telephone [facility] Surgery [address] [place] [address] Medical Office Building [address] [place] [address] Bertha Combs RN Social History Tobacco Use Types Packs/Day [...] file 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 Patient called GI to scheduled colonoscopy. Per patient GI doesn't have an active order. RN called GI and confirmed that patient does not have an pre-existing order as order was cancelled when patient cancelled previous scope. Of note, patient has an appointment scheduled with a PCP in August. Commended patient for scheduling the appointment. RER LIVESTOCK * Telephone Encounter - Bertha Combs RN - 07/21/2024 12:44 PM LABORER LIVESTOCK Images from the original note were not included. Dr Avelina Carlton -Patient Query Received: Kasey Mcclendon C/R Pa Clinical [place] Patient Query: Was an attempt to transfer to the assigned clinical staff or backline? Back line Reason for call?: Patient called regarding a referral for his colonoscopy appointment ,he also wanted to talk to a nurse ,Patient is having some medical question after his appointment on 07/20/2024. Who is the caller: Patient What is the best number for them to contact for a call back: [phone] RER LIVESTOCK * Telephone Encounter - Bertha Combs RN - 07/21/2024 12:44 PM LABORER LIVESTOCK ----- Message from Elsie Limon sent at 07/21/2024 11:23 AM LABORER LIVESTOCK ----- Patient Query: Was an attempt to transfer to the assigned clinical staff or backline? No Reason for call?: Patient still has Questions about the colonoscopy would like a call back Who is the caller: The Patient What is the best number for them to contact for a call back: [phone] RER LIVESTOCK documented in this encounter Plan of Treatment Scheduled Procedures Name Priority Associated Diagnoses Date/Ti me COLONOSCOPY Open Access Diverticulitis documented as of this encounter Visit Diagnoses Diagnosis Diverticulitis- Primary Diverticulitis of colon (without mention of hemorrhage) documented in this encounter Orders Case Request Count Last Ordered Date First Orde red Date GI DIRECT ACCESS CASE REQUEST 1 07/21/2024 documented in this encounter Care Teams Horticulture/Floriculture Teacher Relationship Specialty Start Date End Date Unknown, Notinfile PCP - General 04/22/24 07/30/24 Miscellaneous, Not In File 11/16/19 documented as of this encounter
--- OUTSIDE RECORDS SUMMARY | 2024-09-10 04:06 | XMS_ITS | Encounter Summary ---
Author Organization [facility] Address [address] [place] [address] Phone Care Team Providers Care Yarn Twister Name Role Phone Miscellaneous, Not In File Unavailable Unava ilable Unknown, Notinfile Primary Care Provider Unavail able Encounter Details Date Type Department Care Team (Late st Contact Info) Description 07/21/2024 Telephone [facility] Surgery [address] [place] [address] Medical Office Building [address] [place] [address] Bertha Combs, DOMITILA Social History [...] on file 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 He reiterated what happened in the ED. Pt reports bladder and penile pain. Discussed the importance of a PCP and Urology follow up. Reiterated that he needs to call GI to schedule his colonoscopy. ----- Message from Elsie Limon sent at 07/21/2024 8:43 AM TERRAZZO FINISHER ----- Regarding: Patient Query Patient Query: Was an attempt to transfer to the assigned clinical staff or backline? No Reason for call?: Patient was in ER in [facility] yesterday and would like a call back to discuss the findings and has medical questions Who is the caller: The Patient What is the best number for them to contact for a call back: [phone] AZZO FINISHER AZZO FINISHER documented in this encounter Plan of Treatment Scheduled Procedures Name Priority Associated Diagnoses Date/Ti ne COLONOSCOPY Open Access Diverticulitis documented as of this encounter Visit Diagnoses Not on filedocumented in this encounter Care Teams Yarn Twister Relationship Specialty Start Date End Date Unknown, Notinfile PCP - General 04/22/24 07/30/24 Miscellaneous, Not In File 11/16/19 documented as of this encounter
--- OUTSIDE RECORDS SUMMARY | 2024-09-10 04:06 | XMS_ITS | Encounter Summary ---
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 He said he bought the calmoseptine cream and it really helped. He said he has hemorrhoids and wanted confirmation. I explained I am unable to diagnose him over the phone without an exam. I let him know he may continue to bleed if he hasa hemorrhoid especially in the setting of all his recent stools. We discussed indications for presentation to the ED and I recommended scheduling a clinic appointment if he had ongoing, non-urgent perianal concerns. C THEORY TEACHER documented in this encounter Plan of Treatment Scheduled Procedures Name Priority Associated Diagnoses Date/Ti mt COLONOSCOPY Open Access Diverticulitis documented as of this encounter Visit Diagnoses Not on filedocumented in this encounter Care Teams Motor Block Mechanic Relationship Specialty Start Date End Date Unknown, Notinfile PCP - General 04/22/24 07/30/24 Miscellaneous, Not In File 11/16/19 documented as of this encounter
--- OUTSIDE RECORDS SUMMARY | 2024-09-10 04:06 | XMS_ITS | Encounter Summary ---
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 I told him the anorectal creams should not be causing fevers and chills and advised him to proceed to the ED for further viral workup. He also noted yellow discharge that smelled like diarrhea earlier this evening. He did not describe anypurulent fluid. When I recommended he proceed to the ED if he has persistent fevers and chills he noted at length his dissatisfaction with the ED care team including the physician and reed man during his recent yesterday. He noted he did not want to proceed with care at [facility] ED. He also noted that Dr. Carlton had not done anything for him at his recent clinic visit despite reviewing with him his extensive history, providing a treatment plan, and recommendations for evaluation and referrals to GI and PCP. I spent 40 minutes on this telephone encounter. MP TRAWLER CAPTAIN documented in this encounter Plan of Treatment Scheduled Procedures Name Priority Associated Diagnoses Date/Ti me COLONOSCOPY Open Access Diverticulitis documented as of this encounter Visit Diagnoses Not on filedocumented in this encounter Care Teams Supervisor Slitting And Shipping Relationship Specialty Start Date End Date Unknown, Notinfile PCP - General 08/01/24 Miscellaneous, Not In File 11/16/19 documented as of this encounter
--- OUTSIDE RECORDS SUMMARY | 2024-09-10 04:06 | XMS_ITS | Encounter Summary ---
Author Organization [facility] Address [address] [place] [address] Phone Care Team Providers Care Jewelry Finisher Name Role Phone Miscellaneous, Not In File Unavailable Unava ilable Unknown, Notinfile Primary Care Provider Unavail able Encounter Details Date Type Department Care Team (Late st Contact Info) Description 08/02/2024 Telephone [facility] Surgery [facility] Floor [address] [place] [address] Tamika Morin, DOMITILA Social History Tobacco Use Types Packs/Day [...] on file 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 He also complained about the pharmacist. He is concerned about his stool being yellow after using the hydrocortisone cream. We discussed he has had his gallbladder removed so it is most likely due to the bile salts. He is also wanting to know if the cream can cause this and it making his stomach feel sour . He had 2 bowel movements today without blood. He hasn't taken miralax for a few days. RNAL CONTROL SPECIALIST RNAL CONTROL SPECIALIST documented in this encounter Plan of Treatment Scheduled Procedures Name Priority Associated Diagnoses Date/Ti me COLONOSCOPY Open Access Diverticulitis documented as of this encounter Visit Diagnoses Not on filedocumented in this encounter Care Teams Jewelry Finisher Relationship Specialty Start Date End Date Unknown, Notinfile PCP - General 08/01/24 Miscellaneous, Not In File 11/16/19 documented as of this encounter
--- OUTSIDE RECORDS SUMMARY | 2024-09-10 04:06 | XMS_ITS | Encounter Summary ---
Author Organization [facility] Healthcare Address [address] [place] [address] Care Team Providers Care Feed Manager Name Role Phone Miscellaneous, Not In File Unavailable Unava ilable Unknown, Notinfile Primary Care Provider Unavail able Adin Lino MD Primary Care Provider + Unknown, Notinfile Primary Care Provider Unavail able Reason for Visit * Reason Onset Date Comments Medical Question/Miscellaneous 07/28/2024 Encounter Details Date Type Department Care Team ([facility] st Contact Info) Description 07/28/2024 Telephone [facility] Medical Group Primary Care [address] [place] [address] Adin Lino MD [address] [place] [address] Medical Question/Miscellaneous Social History Tobacco Use Types Packs/Day Years [...] on file 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 - 07/28/2024 2:22 PM CST Medical Question/Miscellaneous Caller???s Concern: New Patient would like a call back about his Insurance. They say they don't know if they can get his new card to him by his appt on 08-15-2024, and he was on the phone with them for like 45 min, and the person he was talking to, did not even know what a Reference number is. Please call Patient about this Today, or Wednesday, at the latest. Does message need to be routed? Yes-Action Needed E WATCHER documented in this encounter Plan of Treatment Scheduled Procedures Name Priority Associated Diagnoses Date/Ti me COLONOSCOPY Open Access Diverticulitis documented as of this encounter Visit Diagnoses Not on filedocumented in this encounter Care Teams Feed Manager Relationship Specialty Start Date End Date Unknown, Notinfile PCP - General 04/22/24 07/30/24 Adin Lino MD [address] [place] [id number] PCP - General Internal Medicine 07/31/24 07/31/24 Unknown, Notinfile PCP - General 08/01/24 Miscellaneous, Not In File 11/16/19 documented as of this encounter
--- OUTSIDE RECORDS SUMMARY | 2024-09-10 04:07 | XMS_ITS | Encounter Summary ---
Author Organization [facility] Address [address] [place] [address] Phone Care Team Providers Care Plugger Name Role Phone Miscellaneous, Not In File Unavailable Unava ilable Unknown, Notinfile Primary Care Provider Unavail able Encounter Details Date Type Department Care Team (Late st Contact Info) Description 06/12/2024 Telephone [facility] Surgery [address] [place] [address] Medical Office Building [address] [place] [address] Bertha Combs RN Social History [...] making you feel afraid or unsafe? 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 Pt inquiring about indication of upcoming visit. Discussed that he should present to the ER for evaluation, pt declined. documented in this encounter Plan of Treatment Scheduled Procedures Name Priority Associated Diagnoses Date/Ti me COLONOSCOPY Open Access Diverticulitis documented as of this encounter Visit Diagnoses Not on filedocumented in this encounter Care Teams Plugger Relationship Specialty Start Date End Date Unknown, Notinfile PCP - General 04/22/24 07/30/24 Miscellaneous, Not In File 11/16/19 documented as of this encounter
--- OUTSIDE RECORDS SUMMARY | 2024-09-10 04:07 | XMS_ITS | Encounter Summary ---
Author Organization [facility] Healthcare Address [address] [place] [address] Care Team Providers Care Bulb Sorter Name Role Phone Miscellaneous, Not In File Unavailable Unava ilable Unknown, Notinfile Primary Care Provider Unavail able Encounter Details Date Type Department Care Team (Late st Contact Info) Description 05/08/2024 Telephone [facility] Medical Group Gastroenterology at [address] [place] [address] Jd Mayes MD [address] [place] [address] [address] [place] [address] Social History Tobacco Use Types Packs/Day Years Used Date Smoking Tobacco: Former Cigarettes 1 5 1 99 - 1995 Smokeless Tobacco: Never Alcohol Use [...] on file 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 Patient VM is not set up. documented in this encounter Plan of Treatment Scheduled Procedures Name Priority Associated Diagnoses Date/Ti me COLONOSCOPY Open Access Diverticulitis documented as of this encounter Visit Diagnoses Not on filedocumented in this encounter Care Teams Bulb Sorter Relationship Specialty Start Date End Date Unknown, Notinfile PCP - General 04/22/24 07/30/24 Miscellaneous, Not In File 11/16/19 documented as of this encounter
--- OUTSIDE RECORDS SUMMARY | 2024-09-10 04:07 | XMS_ITS | Encounter Summary ---
Author Organization [facility] Healthcare Address [address] [place] [address] Care Team Providers Care Heddler Name Role Phone Miscellaneous, Not In File Unavailable Unava ilable Unknown, Notinfile Primary Care Provider Unavail able Encounter Details Date Type Department Care Team (Late st Contact Info) Description 06/29/2024 Telephone [facility] Surgeon [address] [place], [place] [id number] Sharon Alfaro MD [address] [place] [address] Social History Tobacco Use Types [...] making you feel afraid or unsafe? 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 Pt called at midnight to say that he was recently discharged from [facility] but he thought his appt was Wednesday, not today () and that his car is still in the shop. I asked him to call the office this morning to re-schedule. He was in agreement with this plan. Will let clinic know to reschedule appt. documented in this encounter Plan of Treatment Scheduled Procedures Name Priority Associated Diagnoses Date/Ti me COLONOSCOPY Open Access Diverticulitis documented as of this encounter Visit Diagnoses Not on filedocumented in this encounter Care Teams Heddler Relationship Specialty Start Date End Date Unknown, Notinfile PCP - General 04/22/24 07/30/24 Miscellaneous, Not In File 11/16/19 documented as of this encounter
--- OUTSIDE RECORDS SUMMARY | 2024-09-10 04:07 | XMS_ITS | Encounter Summary ---
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 He said you told him to call before 330. He said you can call him in the morning or he will call you later. * Telephone Encounter - Ivy Mariano MA - 05/03/2024 11:03 AM CDT Spoke with patient to schedule procedure, patient stated he will call back tomorrow to confirm if he wants to proceed. * Telephone Encounter - Ivy Mariano MA - 05/03/2024 9:07 AM CDT Patient went to [facility] in [place] I'm May regarding problems with spleen and chronic constipation.Patient has no PCP nor ER referral in system, but wanted to be seen due to pain. I did inform the patient we do not deal with the spleen but tried telling patient he needed an ER/PCP referral or can be put on next available, he refused next availability. I also informed patient if pain is continuing to go to ER patient stated he is not driving his own car and can not go at this time but wanted roro seen here in clinic instead. Dr. Mayes please advise. documented in this encounter Plan of Treatment Scheduled Procedures Name Priority Associated Diagnoses Date/Ti ks COLONOSCOPY Open Access Diverticulitis documented as of this encounter Visit Diagnoses Not on filedocumented in this encounter Care Teams Mass Spectrometry Specialist Relationship Specialty Start Date End Date Unknown, Notinfile PCP - General 04/22/24 07/30/24 Miscellaneous, Not In File 11/16/19 documented as of this encounter
--- OUTSIDE RECORDS SUMMARY | 2024-09-10 04:07 | XMS_ITS | Encounter Summary ---
Author Organization [facility] Address [address] [place] [address] Phone Care Team Providers Care Utility Worker [place] Name Role Phone Miscellaneous, Not In File Unavailable Unava ilable Unknown, Notinfile Primary Care Provider Unavail able Encounter Details Date Type Department Care Team (Late st Contact Info) Description 06/06/2024 Telephone [facility] Surgery [address] [place] [address] Medical Office Building [address] [place] [address] Bertha Combs RN Social History [...] on file 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 Advised that [facility] can't provide diagnosis seen by MD within [facility] office per policy. He stated that he is in severe pain and might present to the ER. Recommended ER if in severe pain. documented in this encounter Plan of Treatment Scheduled Procedures Name Priority Associated Diagnoses Date/Ti me COLONOSCOPY Open Access Diverticulitis documented as of this encounter Visit Diagnoses Not on filedocumented in this encounter Care Teams Utility Worker [place] Relationship Specialty Start Date End Date Unknown, Notinfile PCP - General 04/22/24 07/30/24 Miscellaneous, Not In File 11/16/19 documented as of this encounter
--- OUTSIDE RECORDS SUMMARY | 2024-09-10 04:07 | XMS_ITS | Encounter Summary ---
Author Organization [facility] Healthcare Address [address] [place] [id number] Care Team Providers Care Elevator Service Technician Name Role Phone Miscellaneous, Not In File Unavailable Unava ilable No, Physician Primary Care Provider [phone] Reason for Visit * Reason Comments Abdominal Pain Encounter Details Date Type Department Care Team ([facility] st Contact Info) Description 01/18/2024 7:44 PM CDT - 01/18/2024 8:53 PM CDT Emergency [facility] Emergency Department [facility] [place], [place] [id number] Constipation, unspecified constipation type (Primary Dx); Chronic colitis Discharge Disposition: Discharge to home or self [...] on file Legal Sex Male 1:40 AM [employer] Gender Identity Not on file Sexual Orientation Not on file documented as of this encounter Last Filed Vital Signs Vital Sign Reading Time Taken Comments Blood Pressure 155/87 01/18/2024 7:55 PM CDT Pulse 60 01/18/2024 8:00 PM CDT Temperature 36.9 ??C (98.4 ??F) 01/18/2024 4:38 PM CD T Respiratory Rate 20 01/18/2024 4:38 PM CDT Oxygen Saturation 100% 01/18/2024 8:00 PM CDT Inhaled Oxygen Concentration - - Weight 130.8 kg (288 lb 5.8 oz) 01/18/2024 4:38 PM CDT Height 188 cm (6' 2 ) 01/18/2024 4:38 PM CDT Body Mass Index 37.02 01/18/2024 4:38 PM CDT documented in this encounter Discharge Instructions * Discharge Instructions* Vick Samaniego NP - 01/18/2024 8:29 PM CDT You will need colonoscopy and endoscopy, call GI specialist, Dr. Mayes to make an appointment to be seen, meantime take medicine as prescribed, stay well hydrated, continue take [id number] MiraLax for constipation return to ED immediately for any worsening symptoms. documented in this encounter Medications at Time of Discharge albuterol HFA (PROVENTIL HFA,VENTOLIN HFA,PROAIR HFA) 90 mcg/actuation inhaler Inhale 2 puffs every 4 (four) hours as needed for wheezing 1 each 09/02/2022 ALPRAZolam (XANAX) 2 mg tablet Take 1 tablet (2 mg total) by mouth 3 (three) times a day as needed for anxiety for up to 12 doses 12 tablet 09/20/2022 cyclobenzaprine (FLEXERIL) 10 mg tablet Take 1 tablet (10 mg total) by mouth 3 (three) times a day as needed for muscle spasms for up to 20 doses 20 tablet 01/18/2024 diphenhydrAMINE (BENADRYL) 25 mg capsule Take 1 tablet/capsule (25 mg total) by mouth 2 (two) times a day fluticasone propionate (FLONASE) 50 mcg/actuation nasal sprayIndications:No n-seasonal allergic rhinitis, unspecified trigger Administer 2 sprays into each nostril daily 1 Inhaler 5 12/09/2020 hyoscyamine (LEVSIN) 0.125 mg tabletIndications:U rinary Incontinence Take 1 tablet (0.125 mg total) by mouth every 4 (four) hours as needed for cramping 30 tablet 05/13/2021 ibuprofen (ADVIL,MOTRIN) 600 mg tablet Take 1 tablet (600 mg total) by mouth every 6 hours 10/30/2016 meclizine (ANTIVERT) 25 mg tablet Take 1 tablet (25 mg total) by mouth every 12 hours ondansetron ODT (ZOFRAN-ODT) 4 mg disintegrating tablet Take 1 tablet (4 mg total) by mouth every 8 (eight) hours as needed for nausea or vomiting 20 tablet 01/18/2024 polyethylene glycol (MIRALAX) 17 gram packet daily TAKE: 1 packet mixed with 8 ounces of fluid, Once a day promethazine (PHENERGAN) 25 mg tablet Take 1 tablet (25 mg total) by mouth every 6 (six) hours as needed for nausea or vomiting 12 tablet 10/11/2023 simethicone (MYLICON) 125 mg chewable tablet 125 mg 4 (four) times a day sucralfate (CARAFATE) suspension 1 gram/10 mL Take 10 mL (1 g total) by mouth 2 (two) times a day for 15 days 300 mL 01/18/2024 metroNIDAZOLE (FLAGYL) 500 mg tablet Take 1 tablet (500 mg total) by mouth 3 (three) times a day for 7 days 21 tablet 01/18/2024 4 atenoloL (TENORMIN) 100 mg tabletIndications:E ssential hypertension Take 1 tablet (100 mg total) by mouth daily for 14 days 30 tablet 09/02/2022 4 citalopram (CeleXA) 40 mg tablet Take 1 tablet (40 mg total) by mouth every morning for 10 days 10 tablet 09/20/2022 4 omeprazole (PriLOSEC) 40 mg capsule Take 1 capsule (40 mg total) by mouth daily 30 capsule 01/18/2024 4 documented as of this encounter Ordered Prescriptions Prescription Sig Dispense Quantity Refills Last Filled Start Date End Date ondansetron ODT (ZOFRAN-ODT) 4 mg disintegrating tablet Take 1 tablet (4 mg total) by mouth every 8 (eight) hours as needed for nausea or vomiting 20 tablet 01/18/2024 sucralfate (CARAFATE) suspension 1 gram/10 mL Take 10 mL (1 g total) by mouth 2 (two) times a day for 15 days 300 mL 01/18/2024 cyclobenzaprine (FLEXERIL) 10 mg tablet Take 1 tablet (10 mg total) by mouth 3 (three) times a day as needed for muscle spasms for up to 20 doses 20 tablet 01/18/2024 omeprazole (PriLOSEC) 40 mg capsule Take 1 capsule (40 mg total) by mouth daily 30 capsule 01/18/2024 4 metroNIDAZOLE (FLAGYL) 500 mg tablet Take 1 tablet (500 mg total) by mouth 3 (three) times a day for 7 days 21 tablet 01/18/2024 4 documented in this encounter Discharge Disposition Disposition Code Departure Means Destination Comment s Discharge to home or self care documented in this encounter ED Notes * Vick Samaniego NP - 01/18/2024 8:29 PM CDT CHIEF COMPLAINT: Chief Complaint Patient presents with Abdominal Pain HPI 8:35 PM Carlos Mcgee is a 53 y.o. male presenting to the ED c/o abdominal pain and constipation. He states that from us approximately 2 weeks he has been constipated, he had taken magnesium citrate 3 times that is helped to some extent that he started take MiraLax that has been helping him. He was also having some abdominal pain. Denies any nausea or vomiting. Denies any chest pain or shortness of breath. Denies any fever. Denies any sign of URI. In addition she history that he has been feeling weak and fatigued. Denies any other complaint. History provided by patient. PCP: No, Physician PAST MEDICAL HISTORY Past Medical History: Diagnosis Date Anxiety Arthritis Asthma Benzodiazepine dependence (CMS/HCC) (HCC) Colon tumor sigmoid benign Depression Diverticulitis Diverticulosis Hypertension PTSD (post-traumatic stress disorder) Recurrent major depressive disorder (HCC) Type 2 diabetes mellitus (HCC) PAST SURGICAL HISTORY Past Surgical History: Procedure Laterality Date CHOLECYSTECTOMY CHOLECYSTECTOMY 2000 FAMILY HISTORY Family History Problem Relation Age of Onset Bipolar disorder Mother Anxiety disorder Mother Liver disease Mother Heart disease Father Kidney disease Father Hypertension Mother Hyperlipidemia Mother Mental illness Mother Hypertension Father Stroke Father Hyperlipidemia Father MEDICATIONS GIVEN IN THE ED Medications - No data to display CURRENT HOME MEDICATIONS No current facility-administered medications for this encounter. Current Outpatient Medications: albuterol HFA (PROVENTIL HFA,VENTOLIN HFA,PROAIR HFA) 90 mcg/actuation inhaler, Inhale 2 puffs every 4 (four) hours as needed for wheezing, Disp: 1 each, Rfl: 0 alfuzosin ER (UROXATRAL) 10 mg 24 hr tablet, Take 1 tablet (10 mg total) by mouth daily, Disp: 30 tablet, Rfl: 5 ALPRAZolam (XANAX) 2 mg tablet, Take 1 tablet (2 mg total) by mouth 3 (three) times a day as neededfor anxiety for up to 12 doses, Disp: 12 tablet, Rfl: 0 atenoloL (TENORMIN) 100 mg tablet, Take 1 tablet (100 mg total) by mouth daily for 14 days, Disp: 30 tablet, Rfl: 0 citalopram (CeleXA) 40 mg tablet, Take 1 tablet (40 mg total) by mouth every morning for 10 days, Disp: 10 tablet, Rfl: 0 cyclobenzaprine (FLEXERIL) 10 mg tablet, Take 1 tablet (10 mg total) by mouth 3 (three) times a dayas needed for muscle spasms for up to 20 doses, Disp: 20 tablet, Rfl: 0 diphenhydrAMINE (BENADRYL) 25 mg capsule, Take 25 mg by mouth 2 (two) times a day, Disp: , Rfl: fluticasone propionate (FLONASE) 50 mcg/actuation nasal spray, Administer 2 sprays into each nostril daily, Disp: 1 Inhaler, Rfl: 5 hyoscyamine (LEVSIN) 0.125 mg tablet, Take 1 tablet (0.125 mg total) by mouth every 4 (four) hours as needed for cramping, Disp: 30 tablet, Rfl: 0 ibuprofen (ADVIL,MOTRIN) 600 mg tablet, Take 600 mg by mouth every 6 hours., Disp: , Rfl: meclizine (ANTIVERT) 25 mg tablet, Take 25 mg by mouth every 12 hours., Disp: , Rfl: metroNIDAZOLE (FLAGYL) 500 mg tablet, Take 1 tablet (500 mg total) by mouth 3 (three) times a day for 7 days, Disp: 21 tablet, Rfl: 0 mirabegron ER (MYRBETRIQ) 25 mg tablet extended release 24 hr, Take 1 tablet (25 mg total) by mouthdaily, Disp: 30 tablet, Rfl: 2 omeprazole (PriLOSEC) 40 mg capsule, Take 1 capsule (40 mg total) by mouth daily, Disp: 30 capsule,Rfl: 0 ondansetron ODT (ZOFRAN-ODT) 4 mg disintegrating tablet, Take 1 tablet (4 mg total) by mouth daily,Disp: 15 tablet, Rfl: 0 oxybutynin (DITROPAN) 5 mg tablet, Take 1 tablet (5 mg total) by mouth 2 (two) times a day, Disp: 60 tablet, Rfl: 5 polyethylene glycol (MIRALAX) 17 gram packet, daily TAKE: 1 packet mixed with 8 ounces of fluid, Once a day, Disp: , Rfl: promethazine (PHENERGAN) 25 mg tablet, Take 1 tablet (25 mg total) by mouth every 6 (six) hours as needed for nausea or vomiting, Disp: 12 tablet, Rfl: 0 simethicone (MYLICON) 125 mg chewable tablet, 125 mg 4 (four) times a day, Disp: , Rfl: solifenacin (VESIcare) 10 mg tablet, Take 1 tablet (10 mg total) by mouth daily, Disp: 30 tablet, Rfl: 11 ALLERGIES Allergies Allergen Reactions Alum-Mag Hydroxide-Simeth Shortness of breath Clindamycin Anaphylaxis Doxycycline Other (See comments) and Shortness of breath Iodinated Contrast Media Shortness of breath, Hallucinations and Hives IV contrast dye and drink Iodine Hives and Shortness of breath Keflex [Cephalexin] Shortness of breath Lidocaine Shortness of breath Lisinopril Anaphylaxis Losartan Angioedema Swollen lips Sulfa Hives and Shortness of breath Sulfasalazine Shortness of breath Azithromycin Hives and Other (See comments) Carvedilol Hives Clonazepam Dizziness Flavoxate Hives Glimepiride Urticaria Metrizamide Delusions Morphine Hallucinations Nebivolol Swelling lips Pepcid [Famotidine] Hives Sitagliptin Chest tightness Sulfa (Sulfonamide Antibiotics) Hives Sulfamethoxazole-Trimethoprim Hives Uroseptic Ds Rash Panic attack Zyprexa [Olanzapine] Hallucinations Trimethoprim Barium Iodide Dizziness and Other (See comments) Buspar [Buspirone] Dizziness Clonidine Anxiety Codeine Dizziness Dicyclomine Anxiety Hydralazine Mental status changes Levetiracetam Other (See comments) hallucinaton Levofloxacin Flushing (skin) Macrobid [Nitrofurantoin] Unknown Metformin Nausea & Vomiting Chest pain Ondansetron Unknown Oxycodone Palpitations Paroxetine Hcl Anxiety Toradol [Ketorolac] Nausea only SOCIAL HISTORY Social History Tobacco Use Smoking status: Former Current packs/day: 0.00 Average packs/day: 1 pack/day for 5.0 years (5.0 ttl pk-yrs) Types: Cigarettes Start date: 1990 Quit date: 1995 Years since quittin.3 Smokeless tobacco: Never Substance and Sexual Activity Drug use: Never Sexual activity: Not on file Alcohol Use: Not on file PHYSICAL EXAM TRIAGE VITAL SIGNS: ED Triage Vitals [01/18/24 1638] Temp Pulse Resp BP SpO2 36.9 ??C (98.4 ??F) 71 20 151/89 98 % Temp src Heart Rate Source Patient Position BP Location FiO2 (%) Oral -- -- -- -- Height Height Method Weight Weight Method 1.88 m (6' 2 ) Stated 130.8 kg (288 lb 5.8 oz) Standing scale Physical Exam Vitals and nursing note reviewed. Constitutional: General: He is not in acute distress. Appearance: Normal appearance. He is well-developed. He is not ill-appearing, toxic-appearing or diaphoretic. HENT: Head: Normocephalic and atraumatic. Jaw: There is normal jaw occlusion. Right Ear: Hearing and external ear normal. Left Ear: Hearing and external ear normal. Nose: Nose normal. Mouth/Throat: Mouth: Mucous membranes are moist. Eyes: Conjunctiva/sclera: Conjunctivae normal. Neck: Trachea: Trachea and phonation normal. Cardiovascular: Rate and Rhythm: Normal rate and regular rhythm. Pulses: Normal pulses. Heart sounds: No murmur heard. Pulmonary: Effort: Pulmonary effort is normal. No respiratory distress. Breath sounds: Normal breath sounds and air entry. Abdominal: Palpations: Abdomen is soft. Tenderness: There is no abdominal tenderness. Musculoskeletal: General: No swelling. Cervical back: Full passive range of motion without pain, normal range of motion and neck supple. Skin: General: Skin is warm and dry. Capillary Refill: Capillary refill takes less than 2 seconds. Neurological: General: No focal deficit present. Mental Status: He is alert and oriented to person, place, and time. Psychiatric: Attention and Perception: Attention normal. Mood and Affect: Mood normal. Speech: Speech normal. Behavior: Behavior normal. Behavior is cooperative. Thought Content: Thought content normal. LABS Labs Reviewed URINALYSIS AND REFLEX TO MICROSCOPIC AND CULTURE - Abnormal Result Value Color, ur Yellow Clarity, ur Clear Specific gravity, ur 1.016 pH, urine 6.0 Protein, ur ql Trace (*) Glucose, ur ql Negative Ketones, ur Negative Bilirubin, ur Negative Blood, ur Negative Urobilinogen, ur <2.0 Nitrite, ur Negative Leukocyte esterase, ur Negative UA reflex comment Reflex to microscopic UA will be performed. CBC WITH AUTO DIFFERENTIAL - Abnormal WBC 5.0 Hgb 11.4 (*) Hct 38.1 (*) Plt 144 (*) MPV 9.1 RBC 5.67 MCV 67.2 (*) MCH 20.1 (*) MCHC 29.9 (*) RDW CV 18.0 (*) RDW SD 40.3 NRBC abs 0.00 COMPREHENSIVE METABOLIC PANEL - Abnormal Sodium 140 Potassium, pl 3.5 Chloride 103 CO2 29 Anion gap 8 BUN 7 Creatinine 1.00 Glucose 119 Calcium 8.9 Bilirubin, total 1.4 (*) Protein, pl 7.4 Albumin 4.2 Alk phos 74 ALT 39 AST 36 URINALYSIS, MICROSCOPIC ONLY - Abnormal WBC, ur 0-5 RBC, ur 0-2 Epithelial cells, squamous, ur 1-5 Mucous, ur Present (*) Hyaline casts, ur 1-5 Culture Reflex Comment Value: Reflex conditions for urine culture (WBC >10) not met. LIPASE Lipase 31 DIFFERENTIAL AUTO Neutrophil abs 3.3 Imm gran abs 0.0 Lymphocyte abs 1.2 Monocyte abs 0.3 Eosinophil abs 0.1 Basophil abs 0.0 Neutrophil pct 67.1 Imm gran pct 0.4 Lymphocyte pct 23.2 Monocyte pct 6.9 Eosinophil pct 1.8 Basophil pct 0.6 EGFR eGFR >[address] Abdomen Pelvis WO Contrast Result Date: 01/18/2024 Narrative: EXAM DESCRIPTION: CT ABDOMEN PELVIS WO CONTRAST REASON FOR STUDY: Bowel obstruction high-grade suspected Pt states two weeks ago started feeling very sluggish. Pt then did mag citrate and and enema because he felt like he was constipated. Pt states he then tried miralax and finally started going to the restroom but states started having abd pain. Pt state that he has a benign tumor in his stomach that he is worried about. Pt state just feels weak TECHNIQUE: CT scan of the abdomen andpelvis performed without intravenous and without oral contrast using helical scanning technique. Reconstructed coronal and sagittal MPR images reviewed. All images stored on PACS. Automated exposure control was used as a dose optimization technique for this examination. COMPARISON: 10/11/2023 and more remote studies dating back to 10/07/2020 FINDINGS: The sensitivity for detection of visceral lesions is diminished without the use of intravenous contrast. GI: Circumferential thickening of the proximal sigmoid colon/descending colon. This is present on prior studies dating back to 10/07/2020. Thickened bowel wall involving the descending colon at and just proximal to the more distal findings.This portion of the bowel is dilated on all prior studies. No small bowel dilatation. Forearm distal rectal debris. ABDOMEN: Visualized portions of the lung bases show no pneumonia. No free air, freefluid pathologic sized nodes of the abdomen. Some shotty nodes of the abdomen that are similar. Cholecystectomy clips are again noted. Nonobstructing renal lithiasis. No hydronephrosis. Tiny left renal hypodensity that is similar. This is too small to fully characterize and likely represents a cyst. No additional follow- up requested this finding. PELVIS: No free air or free fluid identified within the pelvis. No pathologic sized nodes of the pelvis. Bilateral groin hernias containing fat again noted. Spondylosis of the spine. IMPRESSION: Circumferential thickening of the descending colon and proximal sigmoid colon. This is present on prior studies dating back to at least 10/07/2020. This may reflect chronic colitis. Underlying colonic stricture is suspected. Recommend follow-up colonoscopy as clinically indicated. Nonobstructing renal lithiasis. THIS IS AN ELECTRONICALLY VERIFIED FINAL REPORT 01/18/2024 6:40 PM - Electronically signed by Jenaro JEFFERSON:RONNY Report ID: [id number] Reading Location: [id number] ED COURSE/MEDICAL DECISION MAKING ED Course as of 01/18/242034 Time: 01/17 2033 Comment: He came in for the complaint of constipation from us approximately 2 weeks along with weakness and fatigue. By: Vick Samaniego NP Time: 01/17 2033 Comment: On exam he does not appear to be in distress vitals unremarkable CBC does show chronic anemia, CMP unremarkable, abdomen is soft and nontender, lung sounds are clear. By: Vick Samaniego NP Time: 01/17 2034 Comment: CT Abdomen and Pelvis: IMPRESSION: Circumferential thickening of the descending colon and proximal sigmoid colon. This is present on prior studies dating back to at least 10/07/2020. This may reflect chronic colitis. Underlying colonic stricture is suspected. Recommend follow-up colonoscopy as clinically indicated. Nonobstructing renal lithiasis. By: Vick Samaniego NP Time: 01/17 2034 Comment: I explained this result to him, I have advised him that he will need to see a GI specialist for colonoscopy, given information Dr. Mayes to follow up with, he is requesting Flagyl for his chronic colitis as well as Flexeril for his body ache so I prescribed him those, advised to drink plenty of water, stay well hydrated, advised return to ED immediately for any worsening symptoms. He agrees with the plan. By: Vick Samaniego NP Procedures FINAL IMPRESSION Constipation, unspecified constipation type Chronic colitis DISPOSITION: Home PATIENT INSTRUCTED TO FOLLOW UP Jd Mayes MD [address] [place] [facility] [id number] DISCHARGE MEDICATIONS Your medication list START taking these medications Instructions Last Dose Given Next Dose Due metroNIDAZOLE 500 mg tablet Commonly known as: FLAGYL Take 1 tablet (500 mg total) by mouth 3 (three) times a day for 7 days CHANGE how you take these medications Instructions Last Dose Given Next Dose Due cyclobenzaprine 10 mg tablet Commonly known as: FLEXERIL What changed: how to take this when to take this reasons to take this Take 1 tablet (10 mg total) by mouth 3 (three) times a day as needed for muscle spasms for up to 20doses CONTINUE taking these medications Instructions Last Dose Given Next Dose Due omeprazole 40 mg capsule Commonly known as: PriLOSEC Take 1 capsule (40 mg total) by mouth daily ASK your doctor about these medications Instructions Last Dose Given Next Dose Due albuterol HFA 90 mcg/actuation inhaler Commonly known as: PROVENTIL HFA,VENTOLIN HFA,PROAIR HFA Inhale 2 puffs every 4 (four) hours as needed for wheezing alfuzosin ER 10 mg 24 hr tablet Commonly known as: UROXATRAL Take 1 tablet (10 mg total) by mouth daily ALPRAZolam 2 mg tablet Commonly known as: XANAX Take 1 tablet (2 mg total) by mouth 3 (three) times a day as needed for anxiety for up to 12 doses atenoloL 100 mg tablet Commonly known as: TENORMIN Take 1 tablet (100 mg total) by mouth daily for 14 days citalopram 40 mg tablet Commonly known as: CeleXA Take 1 tablet (40 mg total) by mouth every morning for 10 days diphenhydrAMINE 25 mg capsule Commonly known as: BENADRYL Take 25 mg by mouth 2 (two) times a day fluticasone propionate 50 mcg/actuation nasal spray Commonly known as: FLONASE Administer 2 sprays into each nostril daily hyoscyamine 0.125 mg tablet Doctor's comments: If not covered can you run under a good rx card? Priscila Veronica Commonly known as: LEVSIN Take 1 tablet (0.125 mg total) by mouth every 4 (four) hours as needed for cramping ibuprofen 600 mg tablet Commonly known as: ADVIL,MOTRIN Take 600 mg by mouth every 6 hours. meclizine 25 mg tablet Commonly known as: ANTIVERT Take 25 mg by mouth every 12 hours. mirabegron ER 25 mg tablet extended release 24 hr Commonly known as: MYRBETRIQ Take 1 tablet (25 mg total) by mouth daily ondansetron ODT 4 mg disintegrating tablet Commonly known as: ZOFRAN-ODT Take 1 tablet (4 mg total) by mouth daily oxyBUTYnin 5 mg tablet Commonly known as: DITROPAN Take 1 tablet (5 mg total) by mouth 2 (two) times a day polyethylene glycol 17 gram packet Commonly known as: MIRALAX daily TAKE: 1 packet mixed with 8 ounces of fluid, Once a day promethazine 25 mg tablet Commonly known as: PHENERGAN Take 1 tablet (25 mg total) by mouth every 6 (six) hours as needed for nausea or vomiting simethicone 125 mg chewable tablet Commonly known as: MYLICON 125 mg 4 (four) times a day solifenacin 10 mg tablet Commonly known as: VESIcare Take 1 tablet (10 mg total) by mouth daily Where to Get Your Medications You can get these medications from any pharmacy Bring a paper prescription for each of these medications cyclobenzaprine 10 mg tablet metroNIDAZOLE 500 mg tablet omeprazole 40 mg capsule This examination was transcribed using the [employer] voice recognition system without human well puller. In an effort to expedite patient care, this report has not been adjusted for typographical, grammatical, and syntax by a trained emergency medical service coordinator. Vick Samaniego NP 01/18/242034 Cosigned by Raza Bahena Jr., MD at 01/18/2024 11:14 PM CDT Associated attestation - Raza Bahena Jr., MD - 01/18/2024 11:14 PM CDT ED Attestation Based on the medical record the care appears appropriate. * Shelley Veras RN - 01/18/2024 4:36 PM CDT Pt states two weeks ago started feeling very sluggish. Pt then did mag citrate and and enema because he felt like he was constipated. Pt states he then tried miralax and finally started going to the restroom but states started having abd pain. Pt state that he has a benign tumor in his stomach thathe is worried about. Pt state just feels weak documented in this encounter Plan of Treatment Scheduled Procedures Name Priority Associated Diagnoses Date/Ti me COLONOSCOPY Open Access Diverticulitis documented as of this encounter Procedures Procedure Name Priority Date/Time Associated Diagnosis Comments CT ABDOMEN PELVIS WO CONTRAST ED 01/18/2024 6:12 PM CDT URINALYSIS AND REFLEX TO MICROSCOPIC AND CULTURE STAT 01/18/2024 4:47 PM CDT URINALYSIS, MICROSCOPIC ONLY STAT 01/18/2024 4:47 PM CDT EGFR STAT 01/18/2024 4:42 PM CDT DIFFERENTIAL AUTO STAT 01/18/2024 4:4 2 PM CDT CBC WITH AUTO DIFFERENTIAL STAT 01/18/2024 4:42 PM CDT LIPASE STAT 01/18/2024 4:42 PM CDT COMPREHENSIVE METABOLIC PANEL STAT 01/18/2024 4:42 PM CDT documented in this encounter Results * CT Abdomen Pelvis WO Contrast (01/18/2024 6:12 PM CDT) Anatomical Region Laterality Modality Body N/A Computed Tomogra phy 01/18/2024 6:2 8 PM CDT Narrative 01/18/2024 6:40 PM CDT EXAM DESCRIPTION: ?? CT ABDOMEN PELVIS WO CONTRAST REASON FOR STUDY: ?? Bowel obstruction high-grade suspected ?? Pt states two weeks ago started feeling very sluggish. Pt then did mag citrate and and enema because he felt like he was constipated. Pt states he then tried miralax and finally started going to the restroom but states started having abd pain. Pt state ?? that he has a benign tumor in his stomach that he is worried about. Pt state just feels weak ? TECHNIQUE: CT scan of the abdomen and pelvis performed without intravenous and ??without ??oral contrast using helical scanning technique. Reconstructed coronal and sagittal MPR images reviewed. All images stored on PACS. ?? Automated exposure control was used as a dose optimization technique for this examination. COMPARISON: ?? 10/11/2023 and more remote studies dating back to 10/07/2020 FINDINGS: The sensitivity for detection of visceral lesions is diminished without the use of intravenous contrast. GI: Circumferential thickening of the proximal sigmoid colon/descending colon. ?? This is present on prior studies dating back to 10/07/2020. ??Thickened bowel wall involving the descending colon at and just proximal to the more distal findings. ??This portion of the bowel is dilated on all prior studies. ??No small bowel dilatation. ??Forearm distal rectal debris. ABDOMEN: Visualized portions of the lung bases show no pneumonia. ??No free air, free fluid pathologic sized nodes of the abdomen. ??Some shotty nodes of the abdomen that are similar. ??Cholecystectomy clips are again noted. ??Nonobstructing renal lithiasis. ??No hydronephrosis. ??Tiny left renal hypodensity that is similar. ??This is too small to fully characterize and likely represents a cyst. ??No additional follow-up requested this finding. PELVIS: No free air or free fluid identified within the pelvis. ??No pathologic sized nodes of the pelvis. ??Bilateral groin hernias containing fat again noted. ?? Spondylosis of the spine. ?? IMPRESSION: Circumferential thickening of the descending colon and proximal sigmoid colon. This is present on prior studies dating back to at least 10/07/2020. This may reflect chronic colitis. ??Underlying colonic stricture is suspected. ?? Recommend follow-up colonoscopy as clinically indicated. Nonobstructing renal lithiasis. THIS IS AN ELECTRONICALLY VERIFIED FINAL REPORT 01/18/2024 6:40 PM - Electronically signed by ??Jenaro Day M.D. JS: RONNY D: ??01/18/2024 6:40 PM T: ??01/18/2024 6:40 PM Report ID: [id number] Reading Location: ??[id number] Procedure Note ShayJenaro, DO - 01/18/2024 EXAM DESCRIPTION: CT ABDOMEN PELVIS WO CONTRAST REASON FOR STUDY: Bowel obstruction high-grade suspected Pt states two weeks ago started feeling very sluggish. Pt then did magcitrate and and enema because he felt like he was constipated. Pt states he thentried miralax and finally started going to the restroom but states startedhaving abd pain. Pt state that he has a benign tumor in his stomach that he is worried about. Pt state just feels weak TECHNIQUE: CT scan of the abdomen and pelvis performed without intravenousand without oral contrast using helical scanning technique. Reconstructed coronal and sagittal MPR images reviewed. All images stored on PACS. Automated exposure control was used as a dose optimization technique forthis examination. COMPARISON: 10/11/2023 and more remote studies dating back to 10/07/2020 FINDINGS: The sensitivity for detection of visceral lesions is diminished without the use of intravenous contrast. GI: Circumferential thickening of the proximal sigmoid colon/descending colon. This is present on prior studies dating back to 10/07/2020. Thickenedbowel wall involving the descending colon at and just proximal to the moredistal findings. This portion of the bowel is dilated on all prior studies. No small bowel dilatation. Forearm distal rectal debris. ABDOMEN: Visualized portions of the lung bases show no pneumonia. No free air,free fluid pathologic sized nodes of the abdomen. Some shotty nodes of theabdomen that are similar. Cholecystectomy clips are again noted. Nonobstructing renal lithiasis. No hydronephrosis. Tiny left renal hypodensity that is similar. This is too small to fully characterize and likely represents a cyst. No additional follow-up requested this finding. PELVIS: No free air or free fluid identified within the pelvis. No pathologicsized nodes of the pelvis. Bilateral groin hernias containing fat again noted. Spondylosis of the spine. IMPRESSION: Circumferential thickening of the descending colon and proximal sigmoid colon. This is present on prior studies dating back to at least10/07/2020. This may reflect chronic colitis. Underlying colonic stricture issuspected. Recommend follow-up colonoscopy as clinically indicated. Nonobstructing renal lithiasis. THIS IS AN ELECTRONICALLY VERIFIED FINAL REPORT 01/18/2024 6:40 PM - Electronically signed by Jenaro Day M.D. JS: RONNY Report ID: [id number] Reading Location: [place] [address] Jean Pierre Andrew MD IMG CT PROCEDURES Final R esult * (ABNORMAL) Urinalysis, microscopic only (01/18/2024 4:47 PM CDT) WBC, ur 0-5 0 - 5 /HPF Comment:Testing performed by : [address] [address] RBC, ur 0-2 0 - 2 /HPF VAL Comment:Testing performed by : [address] [address] Epithelial cells, squamous, ur 1-5 0 - 5 /HPF VAL Comment:Testing performed by : [address] [address] Mucous, ur Present(A) VAL Comment:Testing performed by : [address] [address] Hyaline casts, ur 1-5 0 - 10 /LPF VAL Comment:Testing performed by : [address] [address] Culture Reflex Comment Reflex conditions for urine culture (WBC >10) not met. VAL Comment:Testing performed by : [address] [address] Urine, clean voided 01/18/2024 4:47 PM CDT 01/18/2024 4:51 PM CDT Jean Pierre Andrew MD LAB URINE ORDERABLES Alura l Result VAL MULLER [address] [facility] Department [place] [address] * (ABNORMAL) Urinalysis reflex to microscopic and culture Urine, clean voided (01/18/2024 4:47 PM CDT) Color, ur Yellow Yellow Comment:Testing performed by : [address] [address] Clarity, ur Clear Clear VAL Comment:Testing performed by : [address] [address] Specific gravity, ur 1.016 1.003 - 1.030 VAL Comment:Testing performed by : [address] [address] pH, urine 6.0 VAL Comment: Interpretive Data ? Urine pH is affected by diet, medications, systemic acid-base disturbances, and renal tubular function. ??pH may affect urinary stone formation. ??For example, urine pH below 6.0 may help reduce the tendency for calcium phosphate stones and pH greater than 6.0 may reduce the tendency for uric acid stone formation. Source: [facility] [employer] Current Interpretive Data was last revised on 2017 Testing performed by: [address] [address] Protein, ur ql Trace(A) Negative VAL Comment:Testing performed by : [address] [address] Glucose, ur ql Negative Negative VAL Comment:Testing performed by : [address] [address] Ketones, ur Negative Negative VAL Comment:Testing performed by : [address] [address] Bilirubin, ur Negative Negative VAL Comment:Testing performed by : [address] [address] Blood, ur Negative Negative VAL Comment:Testing performed by : [address] [address] Urobilinogen, ur <2.0 <2.0 mg/dL VAL Comment:Testing performed by : [address] [address] Nitrite, ur Negative Negative VAL Comment:Testing performed by : [facility], [address] [place] [address]., [address] Leukocyte esterase, ur Negative Negative VAL Comment:Testing performed by : [facility], [address] [place] [address]., [address] UA reflex comment Reflex to microscopic UA will be performed. VAL Comment:Testing performed by : [facility], [address] [place] [address]., [address] Urine, clean voided 01/18/2024 4:47 PM CDT 01/18/2024 4:51 PM CDT us Jean Pierre Andrew MD LAB MICROBIOLOGY - GENERA L ORDERABLES Final Result VAL [address] [facility] Department of Laboratories [place], [place] [id number] * eGFR (01/18/2024 4:42 PM CDT) eGFR >90 >=60 mL/min/1. 73 m2 Comment: Interpretive Data [...] was last reviewed 2021. Testing performed by: [address] [address] Blood 01/18/2024 4:42 PM CDT 01/18/2024 4:51 PM CDT us Jean Pierre Andrew MD LAB BLOOD ORDERABLES Laura la Result [facility] [address] [facility] Department [place] [address] * Differential, auto (01/18/2024 4:42 PM CDT) Neutrophil abs 3.3 1.5 - 6.5 K/cumm Comment:Testing performed by : [address] [address] Imm gran abs 0.0 0.0 - 0.1 K/cumm VAL Comment:Testing performed by : [address] [address] Lymphocyte abs 1.2 0.8 - 3.3 K/cumm VAL Comment:Testing performed by : [address] [address] Monocyte abs 0.3 0.2 - 0.8 K/cumm [facility] Comment:Testing performed by : [address] [address] Eosinophil abs 0.1 0.0 - 0.5 K/cumm VAL Comment:Testing performed by : [address] [address] Basophil abs 0.0 0.0 - 0.1 K/cumm VAL Comment:Testing performed by : [address] [address] Neutrophil pct 67.1 % [facility] Comment: Interpretive Data Percent cell count reference ranges are not reported, since discordance with absolute values may lead to misinterpretation of CBC data. Current Interpretive Data was last revised on 2017. Testing performed by: [address] [address] Imm gran pct 0.4 % [facility] Comment: Interpretive Data Percent cell count reference ranges are not reported, since discordance with absolute values may lead to misinterpretation of CBC data. Current Interpretive Data was last revised on 2017. Testing performed by: [address] [address] Lymphocyte pct 23.2 % [facility] Comment: Interpretive Data Percent cell count reference ranges are not reported, since discordance with absolute values may lead to misinterpretation of CBC data. Current Interpretive Data was last revised on 2017. Testing performed by: [address] [address] Monocyte pct 6.9 % [facility] Comment: Interpretive Data Percent cell count reference ranges are not reported, since discordance with absolute values may lead to misinterpretation of CBC data. Current Interpretive Data was last revised on 2017. Testing performed by: [address] [address] Eosinophil pct 1.8 % [facility] Comment: Interpretive Data Percent cell count reference ranges are not reported, since discordance with absolute values may lead to misinterpretation of CBC data. Current Interpretive Data was last revised on 2017. Testing performed by: [address] [address] Basophil pct 0.6 % [facility] Comment: Interpretive Data Percent cell count reference ranges are not reported, since discordance with absolute values may lead to misinterpretation of CBC data. Current Interpretive Data was last revised on 2017. Testing performed by: [address] [address] Blood 01/18/2024 4:42 PM CDT 01/18/2024 4:51 PM CDT us Jean Pierre Andrew MD LAB BLOOD ORDERABLES Laura l Result [facility] [address] [facility] Department [place] [address] * Lipase (01/18/2024 4:42 PM CDT) Lipase 31 10 - 99 Units/L Comment:Testing performed by : [address] [address] Blood 01/18/2024 4:42 PM CDT 01/18/2024 4:51 PM CDT us Jean Pierre Andrew MD LAB BLOOD ORDERABLES Laura l Result [facility] [address] [facility] Department [place] [address] * (ABNORMAL) Comprehensive metabolic panel (01/18/2024 4:42 PM CDT) Pathologist [facility] Sodium 140 135 - 145 mmol/L Comment:Testing performed by : [address] [address] Potassium, pl 3.5 3.3 - 4.9 mmol/L VAL Comment:Testing performed by : [address] [address] Chloride 103 97 - 110 mmol/L VAL Comment:Testing performed by : [address] [address] CO2 29 22 - 32 mmol/L VAL Comment:Testing performed by : [address] [address] Anion gap 8 2 - 15 mmol/L VAL Comment:Testing performed by : [address] [address] BUN 7 6 - 25 mg/dL VAL Comment:Testing performed by : [address] [address] Creatinine 1.00 0.80 - 1.30 mg/dL VAL Comment:Testing performed by : [address] [address] Glucose 119 70 - 199 mg/dL VAL Comment: Interpretive [...] was last revised 2022. Testing performed by: [address] [address] Calcium 8.9 8.5 - 10.3 mg/dL VAL Comment:Testing performed by : [address] [address] Bilirubin, total 1.4(H) 0.1 - 1.2 mg/dL VAL Comment:Testing performed by : [address] [address] Protein, pl 7.4 6.5 - 8.5 g/dL VAL Comment:Testing performed by : [address] [address] Albumin 4.2 3.5 - 5.0 g/dL VAL Comment:Testing performed by : [address] [address] Alk phos 74 40 - 130 Units/L VAL Comment:Testing performed by : [address] [address] ALT 39 7 - 55 Units/L VAL Comment:Testing performed by : [address] [address] AST 36 10 - 50 Units/L VAL Comment:Testing performed by : [address] [address] Blood 01/18/2024 4:42 PM CDT 01/18/2024 4:51 PM CDT us Jean Pierre Andrew MD LAB BLOOD ORDERABLES Laura l Result [facility] [address] Department [place] [address] * (ABNORMAL) CBC with auto differential (01/18/2024 4:42 PM CDT) [facility] WBC 5.0 3.8 - 9.9 K/cumm Comment:Testing performed by : [address] [address] Hgb 11.4(L) 13.0 - 17.5 g/dL VAL Comment:Testing performed by : [address], [address] Hct 38.1(L) 38.9 - 50.3 % VAL Comment:Testing performed by : [address] [address] Plt 144(L) 150 - 400 K/cumm VAL Comment:Testing performed by : [address] [address] MPV 9.1 9.1 - 12.3 fL VAL Comment:Testing performed by : [address], [address] RBC 5.67 4.30 - 5.80 M/cumm VAL Comment:Testing performed by : [address] [address] MCV 67.2(L) 81.3 - 96.4 fL VAL Comment:Testing performed by : [address] [address] MCH 20.1(L) 27.1 - 33.3 pg VAL Comment:Testing performed by : [address], [address] MCHC 29.9(L) 32.3 - 35.7 g/dL VAL Comment:Testing performed by : [address], [address] RDW CV 18.0(H) 11.1 - 14.9 % VAL Comment:Testing performed by : [address], [address] RDW SD 40.3 35.7 - 48.1 fL VAL MULLER Comment:Testing performed by : [facility], [address] [place] [address]., [address] NRBC abs 0.00 0.00 - 0.01 K/cumm VAL MULLER Comment:Testing performed by : [facility], [address] [place] [address]., [address] Blood 01/18/2024 4:42 PM CDT 01/18/2024 4:51 PM CDT us Jean Pierre Andrew MD LAB BLOOD ORDERABLES Laura l Result VAL [address] [facility] Department [place] [address] documented in this encounter Visit Diagnoses Diagnosis Constipation, unspecified constipation type- Primary Chronic colitis Other and unspecified noninfectious gastroenteritis and colitis documented in this encounter Discontinued Medications Medication Sig Discontinue Reason Start Date End Da te pantoprazole DR (PROTONIX) 20 mg EC tablet Take 2 tablets (40 mg total) by mouth daily for 20 days 10/11/2023 01/18/2024 cyclobenzaprine (FLEXERIL) 10 mg tablet 10 mg 06/19/2018 01/18/2024 omeprazole (PriLOSEC) 40 mg capsule Take 1 capsule (40 mg total) by mouth daily 10/17/2020 01/18/2024 ondansetron ODT (ZOFRAN-ODT) 4 mg disintegrating tabletIndications:Nausea Take 1 tablet (4 mg total) by mouth daily 10/26/2020 01/18/2024 documented as of this encounter Care Teams Elevator Service Technician Relationship Specialty Start Date End Date No, Physician PCP - General 01/18/24 04/21/24 Miscellaneous, Not In File 11/16/19 documented as of this encounter
--- OUTSIDE RECORDS SUMMARY | 2024-09-10 04:07 | XMS_ITS | Encounter Summary ---
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 He is scheduled to see Dr. Carlton for his first patient visit on June 29. Notes his external hemorrhoid is causing him difficulty with bowel movements and but is bothersome but does not cause any pain. I recommended he take miralax to assist with bowel movements and continue with sitz baths. He then also mentioned he thinks he is having an episode of diverticulitis and usually takes PO antibiotics. I told him we cannot prescribe antibiotics without seeing him and if he has worsening sx he should proceed to the ED. He then proceed to at length describe ???hosptials are lazy and no one wants to do anything, and my labs are always normal and I don???t usually get to see a doctor and that they have attitudes. He then recounted his prior hospital admissions and described his dissatisfaction with prior physicians and colonoscopies and that he's not a fan of the ED. He noted he does not have a PCP. I recommended again that he go to the ED for further evaluation and he understood this was my recommendation such that he can get imaging and lab workup as appropriate. Cosigned by Ryland Gupta MD at 06/22/2024 5:19 PM CDT documented in this encounter Plan of Treatment Scheduled Procedures Name Priority Associated Diagnoses Date/Ti me COLONOSCOPY Open Access Diverticulitis documented as of this encounter Visit Diagnoses Not on filedocumented in this encounter Care Teams Freezer Person Relationship Specialty Start Date End Date Unknown, Notinfile PCP - General 04/22/24 07/30/24 Miscellaneous, Not In File 11/16/19 documented as of this encounter
--- OUTSIDE RECORDS SUMMARY | 2024-09-10 04:07 | XMS_ITS | Encounter Summary ---
Author Organization [facility] Address [address] [place] [address] Phone Care Team Providers Care Principal Consulting Engineer Name Role Phone Miscellaneous, Not In File Unavailable Unava ilable No, Physician Primary Care Provider [phone] Encounter Details Date Type Department Care Team (Late st Contact Info) Description 02/28/2024 Telephone [facility] Otolaryngology [facility] [address] [place] [phone] Tatyana Gonzales MS Social History Tobacco Use Types Packs/Day Years [...] on file 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 documented in this encounter Plan of Treatment Scheduled Procedures Name Priority Associated Diagnoses Date/Ti me COLONOSCOPY Open Access Diverticulitis documented as of this encounter Visit Diagnoses Not on filedocumented in this encounter Care Teams Principal Consulting Engineer Relationship Specialty Start Date End Date No, Physician PCP - General 01/18/24 04/21/24 Miscellaneous, Not In File 11/16/19 documented as of this encounter
--- OUTSIDE RECORDS SUMMARY | 2024-09-10 04:07 | XMS_ITS | Encounter Summary ---
Author Organization [facility] Healthcare Address [address] [place] [id number] Care Team Providers Care Weigher Alloy Name Role Phone Miscellaneous, Not In File Unavailable Unava ilable Unknown, Notinfile Primary Care Provider Unavail able Encounter Details Date Type Department Care Team (Late st Contact Info) Description 05/05/2024 Orders Only [facility] Medical Group Gastroenterology at [address] [place] [address] Jd Mayes MD [address] [place] [address] [address] [place] [address] Anemia, unspecified type (Primary Dx); Abnormal finding on GI tract imaging Social History Tobacco Use Types Packs/Day Years [...] on file 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 Patient denies Senior Economist, ASA/blood thinners and FHx of colon cancer. Patient's procedure has been scheduled for 05/25/24. documented in this encounter Plan of Treatment Scheduled Procedures Name Priority Associated Diagnoses Date/Ti me COLONOSCOPY Open Access Diverticulitis documented as of this encounter Visit Diagnoses Diagnosis Anemia, unspecified type- Primary Abnormal finding on GI tract imaging documented in this encounter Care Teams Weigher Alloy Relationship Specialty Start Date End Date Unknown, Notinfile PCP - General 04/22/24 07/30/24 Miscellaneous, Not In File 11/16/19 documented as of this encounter
--- OUTSIDE RECORDS SUMMARY | 2024-09-10 04:07 | XMS_ITS | Encounter Summary ---
Author Organization [facility] Address [address] [place] [address] Phone Care Team Providers Care Pillow Filler Name Role Phone Miscellaneous, Not In File Unavailable Unava ilable Unknown, Notinfile Primary Care Provider Unavail able Reason for Visit * Reason Onset Date Comments Scheduling Appointments 06/29/2024 Encounter Details Date Type Department Care Team (Late st Contact Info) Description 06/29/[address] 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 Carlton the patient's phone line is not in service. documented in this encounter Plan of Treatment Scheduled Procedures Name Priority Associated Diagnoses Date/Ti me COLONOSCOPY Open Access Diverticulitis documented as of this encounter Visit Diagnoses Not on filedocumented in this encounter Care Teams Pillow Filler Relationship Specialty Start Date End Date Unknown, Notinfile PCP - General 04/22/24 07/30/24 Miscellaneous, Not In File 11/16/19 documented as of this encounter
--- OUTSIDE RECORDS SUMMARY | 2024-09-10 04:07 | XMS_ITS | Encounter Summary ---
Author Organization [facility] Healthcare Address [address] [place] [address] Care Team Providers Care Hydroelectric Plant Electrical Engineer Name Role Phone Miscellaneous, Not In File Unavailable Unava ilable Unknown, Notinfile Primary Care Provider Unavail able Encounter Details Date Type Department Care Team (Late st Contact Info) Description 05/09/2024 Orders Only [facility] Medical Group Gastroenterology at [address] [place] [address] Jd Mayes MD [address] [place] [address] [address] [place] [address] Colon cancer screening (Primary Dx) Social History Tobacco Use Types Packs/Day Years [...] on file 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 Gender Identity Not on file Sexual Orientation Not on file documented as of this encounter Ordered Prescriptions Prescription Sig Dispense Quantity Refills Last Filled Start Date End Date bisacodyl EC (DULCOLAX EC) 5 mg EC tabletIndications :constipation Take 1 tablet (5 mg total) by mouth daily as needed for constipation 4 tablet 05/09/2024 documented in this encounter Plan of Treatment Scheduled Procedures Name Priority Associated Diagnoses Date/Ti me COLONOSCOPY Open Access Diverticulitis documented as of this encounter Visit Diagnoses Diagnosis Colon cancer screening- Primary Special screening for malignant neoplasms, colon documented in this encounter Discontinued Medications Medication Sig Discontinue Reason Start Date End Da te bisacodyl EC (DULCOLAX EC) 5 mg EC tabletIndications:con stipation Take 2 tablets (10 mg total) by mouth daily as needed for constipation Error 05/09/2024 05/09/2024 documented as of this encounter Care Teams Hydroelectric Plant Electrical Engineer Relationship Specialty Start Date End Date Unknown, Notinfile PCP - General 04/22/24 07/30/24 Miscellaneous, Not In File 11/16/19 documented as of this encounter
--- OUTSIDE RECORDS SUMMARY | 2024-09-10 04:07 | XMS_ITS | Encounter Summary ---
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 He was upset because Dr. Mayes was willing to send out zofran for him but since its listed as an allergy we are not able to send it. The provider does not feel comfortable sending anything else until the patient is seen in the office. The patient was very upset and asked that we cancel his upcoming procedure and that he is firing us. I spoke with the medical leader and we are canceling his upcoming procedure. documented in this encounter Plan of Treatment Scheduled Procedures Name Priority Associated Diagnoses Date/Ti me COLONOSCOPY Open Access Diverticulitis documented as of this encounter Visit Diagnoses Not on filedocumented in this encounter Care Teams Ethnoarchaeologist Relationship Specialty Start Date End Date Unknown, Notinfile PCP - General 04/22/24 07/30/24 Miscellaneous, Not In File 11/16/19 documented as of this encounter
--- OUTSIDE RECORDS SUMMARY | 2024-09-10 04:07 | XMS_ITS | Encounter Summary ---
Author Organization [facility] Healthcare Address [address] [place] [address] Care Team Providers Care Perinatal Director Name Role Phone Miscellaneous, Not In File Unavailable Unava ilable Unknown, Notinfile Primary Care Provider Unavail able Encounter Details Date Type Department Care Team (Late st Contact Info) Description 05/05/2024 Orders Only [facility] Gastroenterology at [address] [place] [address] Jd Mayes MD [address] [place] [address] [address] [place] [address] Social History Tobacco Use Types [...] on file 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
--- OUTSIDE RECORDS SUMMARY | 2024-09-10 04:07 | XMS_ITS | Encounter Summary ---
Author Organization [facility] Address [address] [facility] [address] [place] [address] Phone Care Team Providers Care Gis Analyst Developer Name Role Phone Miscellaneous, Not In File Unavailable Unava ilable Unknown, Notinfile Primary Care Provider Unavail able Reason for Referral * Consultation (Routine) - Canceled Specialty Diagnoses / Procedures Referred By Contbisi t Referred To Contact Internal Medicine Diagnoses Does not have primary care provider Avelina Carlton MD [address] [facility] [id number] [place] [address] Phone: tel: fax: Adin Lino MD [address] [place] [address] Phone: tel: fax: Referral ID Status Reason Start Date Expiration Date Visits Requested Visits Authorized [id number] Canceled Specialty Services Required 07/20/2024 08/19/2025 1 1 Question Answer Please select the performing region: [facility] [[id number]] # of visits: 1 RVISOR ROLLING ROOM Encounter Details Date Type Department Care Team (Late st Contact Info) Description 07/20/2024 Orders Only [facility] [address] [facility] [address] [place] [address] Sharon Emanuel Does not have primary care provider (Primary Dx) Social History Tobacco Use Types [...] on file 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 Gender Identity Not on file Sexual Orientation Not on file documented as of this encounter Plan of Treatment Scheduled Procedures Name Priority Associated Diagnoses Date/Ti fl COLONOSCOPY Open Access Diverticulitis Scheduled Referrals Name Type Priority Associated Diagnoses Order Schedule Ambulatory referral to Internal Medicine Outpatient Referral Routine Does not have primary care provider Expected: 07/21/2024 (Approximate), Expires: 07/20/2025 documented as of this encounter Visit Diagnoses Diagnosis Does not have primary care provider- Primary documented in this encounter Care Teams Gis Analyst Developer Relationship Specialty Start Date End Date Unknown, Notinfile PCP - General 04/22/24 07/30/24 Miscellaneous, Not In File 11/16/19 documented as of this encounter
--- OUTSIDE RECORDS SUMMARY | 2024-09-10 04:07 | XMS_ITS | Encounter Summary ---
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 Patient is scheduled to see Dr. 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 He states that his bladder pain and spasms are similar to a previous episode in May. I discussed that without an evaluation I could not prescribe pain medications or Abx. He stated which medications had worked in the past. Again I reiterated that without evaluation, I would not be able to prescribe those medications. We discussed the treatment options for colovesicular fistulas. He discussed that if he thought his symptoms were worsening he should present to an emergency department for evaluation. Patient understood this recommendation. Marcy Alba MD documented in this encounter Plan of Treatment Scheduled Procedures Name Priority Associated Diagnoses Date/Ti mn COLONOSCOPY Open Access Diverticulitis documented as of this encounter Visit Diagnoses Not on filedocumented in this encounter Care Teams Ostomy Rn Relationship Specialty Start Date End Date Unknown, Notinfile PCP - General 04/22/24 07/30/24 Miscellaneous, Not In File 11/16/19 documented as of this encounter
--- OUTSIDE RECORDS SUMMARY | 2024-09-10 04:07 | XMS_ITS | Encounter Summary ---
Author Organization [facility] Healthcare Address [address] [place] [address] Care Team Providers Care Putty Maker Name Role Phone Miscellaneous, Not In File Unavailable Unava ilable Unknown, Notinfile Primary Care Provider Unavail able Reason for Visit * Reason Comments Urinary Symptom Chills, frequency wi th urination. 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 Gender Identity Not on file Sexual Orientation Not on file documented as of this encounter Last Filed Vital Signs Vital Sign Reading Time Taken Comments Blood Pressure 154/92 04/22/2024 4:26 PM CDT Pulse 56 04/22/2024 4:26 PM CDT Temperature 37 ??C (98.6 ??F) 04/22/2024 4:26 PM CDT Respiratory Rate 20 04/22/2024 4:26 PM CDT Oxygen Saturation 99% 04/22/2024 4:26 PM CDT Inhaled Oxygen Concentration - - Weight 130.6 kg (288 lb) 04/22/2024 4:26 PM CDT Height 188 cm (6' 2 ) 04/22/2024 4:26 PM CDT Body Mass Index 36.98 04/22/2024 4:26 PM CDT documented in this encounter Progress Notes * Ludwig Stern NP - 04/22/2024 4:15 PM CDT Images from the original note were not included. Subjective/Objective Patient ID: Carlos Mcgee is a 54 y.o. male. Chief Complaint Urinary Symptom (Chills, frequency with urination. Pain) Pt presents to [facility] Care UTI This is a new problem. Episode onset: am, 2 days ago. The problem has been unchanged. The quality of the pain is described as burning. The pain is mild. The maximum temperature recorded prior to his arrival was 100 - 100.9 F. Associated symptoms include chills, frequency and nausea. Pertinent negatives include no flank pain, hematuria, urgency or vomiting. History of diverticulitis Patient declines any Upper respiratory infection symptoms Review of Systems Constitutional: Positive for chills and fever (100.5F max). Negative for diaphoresis and fatigue. Respiratory: Negative for cough and shortness of breath. Cardiovascular: Negative. Gastrointestinal: Positive for abdominal pain and nausea. Negative for diarrhea and vomiting. Genitourinary: Positive for dysuria and frequency. Negative for decreased urine volume, difficulty urinating, flank pain, genital sores, hematuria, penile discharge, penile pain, penile swelling, scrotal swelling, testicular pain and urgency. Musculoskeletal: Negative for back pain. Neurological: Negative for dizziness and headaches. All other systems reviewed and are negative. Physical Exam Vitals and nursing note reviewed. Constitutional: General: He is awake. He is not in acute distress. Appearance: Normal appearance. HENT: Head: Normocephalic and atraumatic. Right Ear: Tympanic membrane and ear canal normal. Left Ear: Tympanic membrane and ear canal normal. Nose: No congestion or rhinorrhea. Right Sinus: No maxillary sinus tenderness or frontal sinus tenderness. Left Sinus: No maxillary sinus tenderness or frontal sinus tenderness. Mouth/Throat: Lips: [place]. Mouth: Mucous membranes are moist. Tongue: Tongue does not deviate from midline. Pharynx: Uvula midline. No pharyngeal swelling, oropharyngeal exudate, posterior oropharyngeal erythema or uvula swelling. Tonsils: No tonsillar exudate or tonsillar abscesses. Eyes: General: Lids are normal. Pupils: Pupils are equal, round, and reactive to light. Cardiovascular: Rate and Rhythm: Normal rate and regular rhythm. Pulses: Normal pulses. Heart sounds: Normal heart sounds. Pulmonary: Effort: Pulmonary effort is normal. No respiratory distress. Breath sounds: Normal breath sounds. No decreased breath sounds, wheezing, rhonchi or rales. Abdominal: General: Abdomen is protuberant. Bowel sounds are normal. Palpations: Abdomen is soft. Tenderness: There is abdominal tenderness in the left lower quadrant. There is no right CVA tenderness, left CVA tenderness, guarding or rebound. Musculoskeletal: Cervical back: Full passive range of motion without pain, normal range of motion and neck supple. Lymphadenopathy: Cervical: No cervical adenopathy. Skin: General: Skin is warm and dry. Neurological: Mental Status: He is alert and oriented to person, place, and time. Gait: Gait normal. Psychiatric: Behavior: Behavior is cooperative. Vitals: 04/22/24 1626 BP: 154/92 Pulse: 56 Resp: 20 Temp: 37 ??C (98.6 ??F) TempSrc: Oral SpO2: 99% Weight: 130.6 kg (288 lb) Height: 188 cm (6' 2 ) No results found. Past Medical History: Diagnosis Date Anxiety Arthritis Asthma Benzodiazepine dependence ([facility]) Colon tumor sigmoid benign Depression Diverticulitis Diverticulosis Hypertension PTSD (post-traumatic stress disorder) Recurrent major depressive disorder (HCC) Type 2 diabetes mellitus ([facility]) Patient Active Problem List Diagnosis Recurrent major depressive disorder, in partial remission ([facility]) Anxiety Obesity (BMI 30-39.9) Benzodiazepine dependence (HCC) Type 2 diabetes mellitus without complication (CMS/HCC) ([facility]) Microcytic anemia Essential hypertension Allergic rhinitis Other acute recurrent sinusitis Xanax use disorder, severe, dependence (CMS/HCC) ([facility]) Type 2 diabetes mellitus with other specified complication ([facility]) Severe obesity (BMI 35.0-35.9 with comorbidity) ([facility]) SOB (shortness of breath) Stricture of sigmoid colon (CMS/HCC) ([facility]) Sedative, hypnotic or anxiolytic abuse, continuous (CMS/HCC) ([facility]) Paresthesias with subjective weakness Palpitations Renal calculi Moderate episode of recurrent major depressive disorder ([facility]) Irritable bowel syndrome with constipation and diarrhea PTSD (post-traumatic stress disorder) Fistula Diverticulitis of colon Chronic chest wall pain Cervical stenosis of spinal canal Benzodiazepine abuse ([facility]) Benign neoplasm of colon Sleep apnea Asthma Gastroesophageal reflux disease Arthritis OAB (overactive bladder) Lower abdominal pain Penile pain Urinary frequency Current Outpatient Medications: albuterol HFA (PROVENTIL HFA,VENTOLIN [...] mouth every 12 hours., Disp: , Rfl: mirabegron ER (MYRBETRIQ) 25 mg tablet extended [...] (eight) hours as needed for nausea or vomiting, Disp: 20 tablet, Rfl: 0 oxybutynin (DITROPAN) 5 mg [...] mouth daily, Disp: 30 tablet, Rfl: 11 sucralfate (CARAFATE) suspension 1 gram/10 mL, Take 10 mL (1 g total) by mouth 2 (two) times a day for 15 days, Disp: 300 mL, Rfl: 0 Allergies Allergen Reactions Alum-Mag Hydroxide-Simeth Shortness of [...] tightness Sulfa (Sulfonamide Antibiotics) Hives Sulfamethoxazole-Trimethoprim Hives Hives Uroseptic Ds Rash Panic attack Zyprexa [Olanzapine] Hallucinations Barium Sulfate Unknown Trimethoprim Barium Iodide Dizziness and Other (See comments) Dizziness/Light Headed Buspar [Buspirone] Dizziness Clonidine Anxiety Codeine Dizziness Dicyclomine Anxiety Hydralazine Mental status changes Levetiracetam Other (See comments) hallucinaton Levofloxacin Flushing (skin) Macrobid [Nitrofurantoin] Unknown Metformin Nausea & Vomiting Chest pain Ondansetron Unknown Oxycodone Palpitations Paroxetine Hcl Anxiety Toradol [Ketorolac] Nausea only Social History Tobacco Use Smoking status: Former Current packs/day: 0.00 Average packs/day: 1 pack/day for 5.0 years (5.0 ttl pk-yrs) Types: Cigarettes Start date: 1990 Quit date: 1995 Years since quittin.6 Smokeless tobacco: Never Substance and Sexual Activity Drug use: Never Sexual activity: None Alcohol Use: Not on file Past Surgical History: Procedure Laterality Date CHOLECYSTECTOMY CHOLECYSTECTOMY 2000 Assessment/Plan Diagnoses and all orders for this visit: Dysuria (Primary) - Urine culture Urine, clean voided; Future - POCT urinalysis dipstick Abdominal pain Elevated blood pressure reading in office with diagnosis of hypertension Recent Results (from the past 4 hour(s)) POCT urinalysis dipstick Collection Time: 04/22/24 4:39 PM Result Value Ref Range Color, Urine, POC Banks Clarity, ur, POC Clear Clear Glucose, ur, POC Negative Negative MG/DL Bilirubin, ur, POC Moderate Negative, Small, Moderate, Large Ketones, ur, POC 15. (A) Negative Specific [place], POC 1.030 1.003 - 1.030 Blood, ur, POC Negative Negative pH, ur, POC 6.0 5.0 - 8.0 Protein, ur, POC 100. (A) Negative Urobilinogen, urine, POC 1.0 0.2 - 1.0 mg/dL Nitrite, ur, POC Negative Negative Leukocytes, ur, POC Negative Negative Lot Number [id number] Patient Education: -discussed with patient due to his abdominal tenderness on exam, abdominal pain and low-grade feverI would recommend higher level of care, emergency room for further evaluation and treatment for acute abdominal infection. -advised patient we will send urine culture notify him in approximately 2 days with results -stressed the importance of following up with PCP, offered and recommended to schedule patient withPCP in our building to establish care, pt declined. Disposition Treatment plan including expectations, follow up, and return precautions discussed with patient/parent, verbalizes understanding. Medication dosage, use, and potential adverse reactions discussed with patient/parent. Advised to follow up with PCP if symptoms do not resolve as expected or sooner if condition worsens. Signs/symptoms warranting ER evaluation reviewed. Patient and/or guardian was given an opportunity to ask questions, questions answered. Ludwig Stern NP This office note has been partially dictated using [employer] software, and as a result portions of the record may have been created with this software. Occasional wrong-word or '[id number]' substitutions may have occurred due to the inherent limitations of voice recognition software. Read the chartcarefully and recognize, using context, where substitutions have occurred. Cosigned by John Rothman MD at 04/23/2024 9:37 PM CDT documented in this encounter Plan of Treatment Scheduled Procedures Name Priority Associated Diagnoses Date/Ti wy COLONOSCOPY Open Access Diverticulitis documented as of this encounter Procedures Procedure Name Priority Date/Time Associated Diagnosis Comments POCT URINALYSIS DIPSTICK Routine 04/22/2024 4:39 PM CDT Dysuria documented in this encounter Results * Urine culture Urine, clean voided (04/22/2024 4:40 PM CDT) Report Final Report: No growth Comment:Testing performed by : [facility], [address] [place]., [address] Urine, clean voided 04/22/2024 4:40 PM CDT 04/22/2024 7:06 PM CDT Narrative VAL Sol 04/23/2024 8:08 PM CDT Testing performed by [facility] ([phone]) Ludwig Stern NP LAB MICROBIOLOGY - GENERAL JOHANAElodia RAMONMYA [place] [id number] [address] [place] [address] * (ABNORMAL) POCT urinalysis dipstick (04/22/2024 4:39 PM CDT) Color, Urine, POC Banks Clarity, ur, POC Clear Clear Glucose, ur, POC Negative Negative MG/DL Bilirubin, ur, POC Moderate Negative, Small, Moderate, Large Ketones, ur, POC 15.(A) Negative Specific [place], POC 1.030 1.003 - 1.030 Blood, ur, POC Negative Negative pH, ur, POC 6.0 5.0 - 8.0 Protein, ur, POC 100.(A) Negative Urobilinogen, urine, POC 1.0 0.2 - 1.0 mg/dL Nitrite, ur, POC Negative Negative Leukocytes, ur, POC Negative Negative Lot Number [id number] Urine 04/22/2024 4:39 PM CDT Ludwig Stern NP POINT OF CARE TEST ORDERABLES F inal Result documented in this encounter Visit Diagnoses Diagnosis Dysuria- Primary Abdominal pain Abdominal pain, unspecified site Elevated blood pressure reading in office with diagnosis of hypertension Dysuria documented in this encounter Care Teams Putty Maker Relationship Specialty Start Date End Date Unknown, Notinfile PCP - General 04/22/24 07/30/24 Miscellaneous, Not In File 11/16/19 documented as of this encounter
--- OUTSIDE RECORDS SUMMARY | 2024-09-10 04:07 | XMS_ITS | Encounter Summary ---
Author Organization [facility] Address [address] [place] [address] Phone Care Team Providers Care Scrapper Name Role Phone Miscellaneous, Not In File Unavailable Unava ilable Unknown, Notinfile Primary Care Provider Unavail able Reason for Visit * Reason Onset Date Comments Scheduling Appointments 07/10/2024 Patient request Encounter Details Date Type Department Care Team (Late st Contact Info) Description 07/10/2024 Telephone [facility] Surgery [address] [facility] [address] [place] [address] Brigitte Vaca BS Scheduling Appointments (Patient request ) Social History Tobacco Use Types Packs/Day [...] on file 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 - 07/10/2024 9:14 AM CDT Patient called again asking for a sooner appointment. told patient he was on a waitlist and there's nothing sooner. * Telephone Encounter - Brigitte Vaca BS - 07/10/2024 8:23 AM CDT Patient asked for appointment back that he cancelled, unfortunately the slot was already filled. Patient is on the waitlist should something open sooner. Brigitte documented in this encounter Plan of Treatment Scheduled Procedures Name Priority Associated Diagnoses Date/Ti ga COLONOSCOPY Open Access Diverticulitis documented as of this encounter Visit Diagnoses Not on filedocumented in this encounter Care Teams Scrapper Relationship Specialty Start Date End Date Unknown, Notinfile PCP - General 04/22/24 07/30/24 Miscellaneous, Not In File 11/16/19 documented as of this encounter
--- OUTSIDE RECORDS SUMMARY | 2024-09-10 04:07 | XMS_ITS | Encounter Summary ---
Author Organization [facility] Healthcare Address [address] [place] [address] Care Team Providers Care Seismic Interpreter Name Role Phone Miscellaneous, Not In File Unavailable Unava ilable Unknown, Notinfile Primary Care Provider Unavail able Encounter Details Date Type Department Care Team (Late st Contact Info) Description 05/09/2024 Orders Only [facility] Gastroenterology at [address] [place] [address] Jd Mayes MD [address] [place] [address] [address] [place] [address] Colon cancer screening (Primary Dx) [...] on file 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 Gender Identity Not on file Sexual Orientation Not on file documented as of this encounter Ordered Prescriptions Prescription Sig Dispense Quantity Refills Last Filled Start Date End Date bisacodyl EC (DULCOLAX EC) 5 mg EC tabletIndications :constipation Take 2 tablets (10 mg total) by mouth daily as needed for constipation 4 tablet 05/09/2024 4 documented in this encounter Plan of Treatment Scheduled Procedures Name Priority Associated Diagnoses Date/Ti me COLONOSCOPY Open Access Diverticulitis documented as of this encounter Visit Diagnoses Diagnosis Colon cancer screening- Primary Special screening for malignant neoplasms, colon documented in this encounter Care Teams Seismic Interpreter Relationship Specialty Start Date End Date Unknown, Notinfile PCP - General 04/22/24 07/30/24 Miscellaneous, Not In File 11/16/19 documented as of this encounter
--- OUTSIDE RECORDS SUMMARY | 2024-09-10 04:07 | XMS_ITS | Encounter Summary ---
Author Organization [facility] Address [address] [place] [address] Phone Care Team Providers Care Job Superintendent Name Role Phone Miscellaneous, Not In File Unavailable Unava ilable Unknown, Notinfile Primary Care Provider Unavail able Reason for Visit * Consultation (Routine) - Authorized Specialty Diagnoses / Procedures Referred By Redd mobley Referred To Contact Surgery / Colon and Rectal Surgery Diagnoses Diverticulitis Referral, Self Avelina Carlton MD [address] [facility] [phone] [place] [address] Phone: tel: fax: Referral ID Status Reason Start Date Expiration Date Visits Requested Visits Authorized [id number] Authorized Specialty Services Required 06/05/2024 07/05/2025 99 99 Encounter Details Date Type Department Care Team (Late st Contact Info) Description 07/20/2024 9:15 AM 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 Office Visit [facility] [address] [place] [address] Avelina Carlton MD [address] [facility] [phone] [place] [address] Diverticulitis Social History Tobacco Use Types Packs/Day [...] on file Legal Sex Male 1:40 AM 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 Gender Identity Not on file Sexual Orientation Not on file documented as of this encounter Last Filed Vital Signs Vital Sign Reading Time Taken Comments Blood Pressure 151/80 07/20/2024 9:05 AM 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 Pulse 62 07/20/2024 9:05 AM 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 Temperature 36.7 ??C (98 ??F) 07/20/2024 9:05 AM 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 Respiratory Rate - - Oxygen Saturation 98% 07/20/2024 9:05 AM 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 Inhaled Oxygen Concentration - - Weight 122.2 kg (269 lb 6.4 oz) 07/20/2024 9:05 AM 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 Height 188 cm (6' 2 ) 07/20/2024 9:05 AM 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 Body Mass Index 34.59 07/20/2024 9:05 AM 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 documented in this encounter Progress Notes * Avelina Carlton MD - 07/20/2024 9:15 AM CST COLORECTAL SURGERY CONSULTATION CC: I have cancer HPI: Carlos Mcgee is a 54 y.o. male with a history of major depressive disorder, anxiety, type 2 diabetes, who was referred as a self-referral for possible diverticulitis with possible fistula. Patient does not have a PCP Per chart review the patient presented to [facility] earlier this year in January with [...] States he has seen a urologist at [facility] and underwent extensivetesting and they couldn't find [...] refills for blood pressure from the ED - states everyone in health care is scared because he takes xanax CT 06/23/24: Very abnormal appearing sigmoid colon with a large 6 cm segment in the mid sigmoid has the appearance of a soft tissue mass. Prominent wall thickening and irregularity is seen of the proximal half of the sigmoid colon . The appearance taken alone is concerning for neoplasia. However I noticed that this appearance has been present on multiple prior studies dating back to at least 2019. Hopefully this has been further evaluated. There are several diverticuli with some mild stranding in the area which could represent some degree of diverticulitis. No clear evidence of perforation or abscess formation is seen CT 01/18/24: Circumferential thickening of the descending colon and proximal sigmoid colon. This is present on prior studies dating back to at least 10/07/2020. This may reflect chronic colitis. Underlying colonic stricture is suspected. Recommend follow-up colonoscopy as clinically indicated. CT 10/11/23: 1. No acute finding. 2. Nonobstructive nephrolithiasis. 3. Hepatic steatosis. 4. Colonic diverticulosis 5. Stable chronic colonic wall thickening of the descending and proximal sigmoid colon. Prior colonoscopy: 2017 @ [facility] 1. No acute finding. 2. Nonobstructive nephrolithiasis. 3. Hepatic steatosis. 4. Colonic diverticulosis 5. Stable chronic colonic wall thickening of the descending and proximal sigmoid colon. PMHx: Past Medical History: Diagnosis Date Anxiety Arthritis Asthma Benzodiazepine dependence (HCC) Colon tumor sigmoid benign Depression Diverticulitis Diverticulosis Hypertension PTSD (post-traumatic stress disorder) Recurrent major depressive disorder (HCC) Type 2 diabetes mellitus (HCC) SHx: Past Surgical History: Procedure Laterality Date CHOLECYSTECTOMY CHOLECYSTECTOMY 2000 FMHx: Denies family hx of IBD Denies family hx of colorectal cancer SocialHx: Occupation: works for last month in [employer]. Alcohol use: no - if yes, how much per day/week? Tobacco use: no - if yes, how much per day? Recreational drug use: no Notable medications: Current Outpatient Medications Medication Sig Dispense Refill albuterol HFA (PROVENTIL HFA,VENTOLIN HFA,PROAIR HFA) 90 mcg/actuation inhaler Inhale 2 puffs every4 (four) hours as needed for wheezing 1 each 0 alfuzosin ER (UROXATRAL) 10 mg 24 hr tablet Take 1 tablet (10 mg total) by mouth daily 30 tablet 5 ALPRAZolam (XANAX) 2 mg tablet Take 1 tablet (2 mg total) by mouth 3 (three) times a day as needed for anxiety for up to 12 doses 12 tablet 0 atenoloL (TENORMIN) 25 mg tablet Take 4 tablets (100 mg total) by mouth daily for 30 doses 120 tablet 0 bisacodyl EC (DULCOLAX EC) 5 mg EC tablet Take 1 tablet (5 mg total) by mouth daily as needed for constipation 4 tablet 0 citalopram (CeleXA) 40 mg tablet Take 1 tablet (40 mg total) by mouth every morning for 10 days 10 tablet 0 cyclobenzaprine (FLEXERIL) 10 mg tablet Take 1 tablet (10 mg total) by mouth 3 (three) times a day as needed for muscle spasms for up to 20 doses 20 tablet 0 diphenhydrAMINE (BENADRYL) 25 mg capsule Take 25 mg by mouth 2 (two) times a day fluticasone propionate (FLONASE) 50 mcg/actuation nasal spray Administer 2 sprays into each nostrildaily 1 Inhaler 5 HYDROcodone-acetaminophen (NORCO) 5-325 mg per tablet Take 1 tablet by mouth every 6 (six) hours asneeded for pain for up to 20 doses 20 tablet 0 hyoscyamine (LEVSIN) 0.125 mg tablet Take 1 tablet (0.125 mg total) by mouth every 4 (four) hours as needed for cramping 30 tablet 0 ibuprofen (ADVIL,MOTRIN) 600 mg tablet Take 600 mg by mouth every 6 hours. meclizine (ANTIVERT) 25 mg tablet Take 25 mg by mouth every 12 hours. mirabegron ER (MYRBETRIQ) 25 mg tablet extended release 24 hr Take 1 tablet (25 mg total) by mouth daily 30 tablet 2 omeprazole (PriLOSEC) 40 mg capsule Take 1 capsule (40 mg total) by mouth daily 30 capsule 0 ondansetron ODT (ZOFRAN-ODT) 4 mg disintegrating tablet Take 1 tablet (4 mg total) by mouth every 8(eight) hours as needed for nausea or vomiting 20 tablet 0 oxybutynin (DITROPAN) 5 mg tablet Take 1 tablet (5 mg total) by mouth 2 (two) times a day 60 tablet5 polyethylene glycol (MIRALAX) 17 gram packet daily TAKE: 1 packet mixed with 8 ounces of fluid, Once a day promethazine (PHENERGAN) 25 mg tablet Take 1 tablet (25 mg total) by mouth every 6 (six) hours as needed for nausea or vomiting 12 tablet 0 simethicone (MYLICON) 125 mg chewable tablet 125 mg 4 (four) times a day solifenacin (VESIcare) 10 mg tablet Take 1 tablet (10 mg total) by mouth daily 30 tablet 11 sucralfate (CARAFATE) suspension 1 gram/10 mL Take 10 mL (1 g total) by mouth 2 (two) times a day for 15 days 300 mL 0 No current facility-administered medications for this visit. ROS - A complete review of systems is negative other than what is listed in the HPI above PHYSICAL EXAM Vitals BP 151/80 Pulse 62 Temp 36.7 ??C (98 ??F) Ht 188 cm (6' 2 ) Wt 122.2 kg (269 lb 6.4 oz) SpO2 98% BMI 34.59 kg/m?? Neuro: NAD, alert and oriented x3 CV: RRR Lung: non-labored breathing without auditory wheezing Abdomen: soft, non-tender, non-distended. Well healed laparoscopic incision sites IMPRESSION: Carlos Mcgee is a 54 y.o. male with a history of major depressive disorder, anxiety, type 2 diabetes, who was referred as a self- referral for possible diverticulitis vs mass with partial obstruction. Discussed the natural history of diverticulitis as well as indications for surgical resection. We discussed that the first episode of diverticulitis is often the worst with subsequent episodes of similar or decreasing severity. We discussed that number of episodes no longer is an adamant rule for resection and that the decision for surgery it is often taken together with severity and frequency aswell as individual patient factors. We discussed that there is no longer a dietary restriction on seeds and nuts. Discussed that I suspect that this area in his colon in might be related to diverticular disease and inflammation/stricture given that it has been there for several years and given the test of time may not be a cancer. However I did mention we are concerned that this could be a malignancy and we can't rule it out and we will treat it as such. We discussed that some of his pain in the left side ofhis abdomen might be due to some of the constipation related to this. We discussed that there is noevidence of an obvious fistula to his bladder, He has no fistula symptoms and no air in bladder on recent imaging, but we suspect this mass is causing some tethering and some inflammation near his bladder which is causing some of his urinary symptoms. I recommend that he start some MiraLax to keep some of the stools moving through and avoid some constipation related to this mass/inflammation. I recommend that he get a colonoscopy. We discussed that this will likely require a surgery once colonoscopy complete. We specifically discussed a sigmoid colectomy. We discussed the expected post-operative course as well as a thorough discussion of the anticipated risks, benefits and alternatives of the operation. After explanation of above he kept asking about why he is having his pain and bladder pressure and we repeated above. He then goes on to state that he needs our help with all of his medications today. He specifically mentions a refill on his narcotic as well as Prilosec and atenolol. Discussed that no medication will be given today and he needs to establish care with a PCP - referral will be placed. He then states that he is in so much pain that he can not walk and is asking for antibiotics and a refill of pain medicine. We discussed that based on his exam and his vitals as well as recent workup/imaging there is no indication for antibiotics at this time. We discussed that narcotics may contribute to constipation and his pain related to any constipation. However if he is in that much pain werecommend that he seek care in the emergency room where they can do further workup including a urinalysis as well as CT scan to see if there was anything acute going on other than his known sigmoid mass. Of note, this is the patient's 1st visit with the Colorectal surgery section as he has patient has missed and rescheduled numerous prior appointments. In the interim there have been numerous difficult phone interactions with the patient including disrespectful and unprofessional comments with staff. This includes overnight phone calls that he makes to the on-call team despite no prior establishedcare with CRS requesting pain medicine and refills. Due to this, Bertha Combs RN was present for entire visit. Discussed these interactions with patient today and discussed my expectations moving forward for only polite and professional behavior between him and our staff. I did discuss with him that if he continues to have rude or unprofessional behavior such as name calling, yelling, profanities, etc, we will need to find him another providing physician. Patient states that he is always professional with medical staff and voiced understanding and agrees to comply. All questions and concerns were addressed. Patient voiced understanding and agrees with the plan ofcare. PLAN: Start miralax to help with constipation Cscope - gi referral previously placed and will reengage. Provided phone number to patient to schedule PCP referral Recommend that for episodes of severe pain that he present to his local emergency room as this can include further workup including a CT scan to rule out complications of his known colon mass My total encounter time on 07/20/2024 was 45 minutes which was spent in the activities documented inthe note. This includes time spent prior to the visit and after the visit in direct care of the patient. This time does not include time spent in any separately reportable services. Avelina Carlton MD collision repairer Colon and Rectal Surgery K ASSEMBLER K ASSEMBLER K ASSEMBLER documented in this encounter Plan of Treatment Scheduled Procedures Name Priority Associated Diagnoses Date/Ti me COLONOSCOPY Open Access Diverticulitis documented as of this encounter Visit Diagnoses Diagnosis Diverticulitis Diverticulitis of colon (without mention of hemorrhage) documented in this encounter Discontinued Medications Medication Sig Discontinue Reason Start Date End Da te citalopram (CeleXA) 40 mg tablet Take 1 tablet (40 mg total) by mouth every morning for 10 days Therapy completed 09/20/2022 07/20/2024 documented as of this encounter Orders Outpatient Referral Count Last Ordered Date Fir st Ordered Date AMB REFERRAL TO COLORECTAL SURGERY 1 2023 documented in this encounter Care Teams Job Superintendent Relationship Specialty Start Date End Date Unknown, Notinfile PCP - General 04/22/24 07/30/24 Miscellaneous, Not In File 11/16/19 documented as of this encounter
--- OUTSIDE RECORDS SUMMARY | 2024-09-10 04:07 | XMS_ITS | Encounter Summary ---
Author Organization [facility] Address [address] [place] [address] Phone Care Team Providers Care Knot Borer Name Role Phone Miscellaneous, Not In File Unavailable Unava ilable Unknown, Notinfile Primary Care Provider Unavail able Reason for Visit * Reason Onset Date Comments Reschedule/Medical Concern 06/19/2024 Encounter Details Date Type Department Care Team (Late st Contact Info) Description 06/19/2024 Telephone [facility] [address] [place] [address] Sharon Emanuel Reschedule/Medical Concern Social History Tobacco Use Types Packs/Day Years [...] on file 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 I offered a soonerappointment than that date, but he was unable to accept this appointment as his car is in the shop. He was adamant that he needed his records reviewed now and he is needing medical advice. I told himnumerous times that we are unable to provide medical advice. Ultimately, he called me a parrot and wouldn't hear anything else. I let him know that I was going to terminate the call if we couldn't have a calm conversation. He told me that I'm a fucking parrot and I then said I hope you have a nice day. I am now terminating the call. And call was terminated. documented in this encounter Plan of Treatment Scheduled Procedures Name Priority Associated Diagnoses Date/Ti me COLONOSCOPY Open Access Diverticulitis documented as of this encounter Visit Diagnoses Not on filedocumented in this encounter Care Teams Knot Borer Relationship Specialty Start Date End Date Unknown, Notinfile PCP - General 04/22/24 07/30/24 Miscellaneous, Not In File 11/16/19 documented as of this encounter
--- OUTSIDE RECORDS SUMMARY | 2024-09-10 04:07 | XMS_ITS | Encounter Summary ---
Author Organization [facility] Address [address] [place] [address] Care Team Providers Care Student Specialist Name Role Phone Miscellaneous, Not In File Unavailable Unava ilable No, Physician Primary Care Provider [phone] Encounter Details Date Type Department Care Team (Late st Contact Info) Description 02/01/2024 Telephone [facility] Gastroenterology at [address] [place] [address] Jd Mayes MD [address] [place] [address] [address] [place] [address] Social History Tobacco Use Types [...] on file 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 Mayes, Were fully booked till month of December 2024. I offered 05/11/24 but he refused to take it because he wanted soon as possible to see Dr.. Mayes, Pt is so rude talking bad things about the Doctor at the ER and nurses at [facility]. He just keep complaining the entire phone call. I advised him to go to the ER if his in Pain. documented in this encounter Plan of Treatment Scheduled Procedures Name Priority Associated Diagnoses Date/Ti me COLONOSCOPY Open Access Diverticulitis documented as of this encounter Visit Diagnoses Not on filedocumented in this encounter Care Teams Student Specialist Relationship Specialty Start Date End Date No, Physician PCP - General 01/18/24 04/21/24 Miscellaneous, Not In File 11/16/19 documented as of this encounter
--- OUTSIDE RECORDS SUMMARY | 2024-09-10 04:07 | XMS_ITS | Encounter Summary ---
Author Organization [facility] Healthcare Address [address] [place] [address] Care Team Providers Care Inspector Final Assembly Conveyor Line Name Role Phone Miscellaneous, Not In File Unavailable Unava ilable Unknown, Notinfile Primary Care Provider Unavail able Reason for Visit * Reason Comments Urinary Problem Encounter Details Date Type Department Care Team (Late st Contact Info) Description 07/20/2024 12:18 PM TOOL DESIGN DRAFTSPERSON - 07/20/2024 4:39 PM TOOL DESIGN DRAFTSPERSON Emergency [facility] Emergency Department [address] [place] [address] Left lower quadrant abdominal pain (Primary Dx) [...] on file Legal Sex Male 1:40 AM TOOL DESIGN DRAFTSPERSON Gender Identity Not on file Sexual Orientation Not on file documented as of this encounter Last Filed Vital Signs Vital Sign Reading Time Taken Comments Blood Pressure 149/67 07/20/2024 3:25 PM TOOL DESIGN DRAFTSPERSON Pulse 58 07/20/2024 3:25 PM TOOL DESIGN DRAFTSPERSON Temperature 36.3 ??C (97.4 ??F) 07/20/2024 1 1:17 AM TOOL DESIGN DRAFTSPERSON Respiratory Rate 18 07/20/2024 3:25 PM TOOL DESIGN DRAFTSPERSON Oxygen Saturation 98% 07/20/2024 3:25 PM TOOL DESIGN DRAFTSPERSON Inhaled Oxygen Concentration - - Weight 122.6 kg (270 lb 4.5 oz) 024 11:17 AM TOOL DESIGN DRAFTSPERSON Height 188 cm (6' 2 ) 07/20/2024 11:17 AM TOOL DESIGN DRAFTSPERSON Body Mass Index 34.7 07/20/2024 11:17 AM TOOL DESIGN DRAFTSPERSON documented in this encounter Discharge Instructions * Discharge Instructions* Grey Figueroa PA - 07/20/2024 4:25 PM TOOL DESIGN DRAFTSPERSON Thank you for allowing us to take care of you at [facility] Please follow up with your primary care physician or specialist, as soon as possible, and ideally within 7 days. Please take any new medications as prescribed. Please return to the emergency department for worsening of your symptoms or any new problems which may arise. It is mandatory that you follow up, as recommended, with a primary care physician or specialist, per your discharge paperwork.You have received emergency care only at your visit today, an this is nota substitute for ongoing care, further evaluation, or treatment. Therefore, follow-up as directed is not optional, but mandatory. This ensures that any incidental abnormal radiographic and laboratoryfindings are evaluated appropriately. Return immediately for any new symptoms, worsening of symptoms, or persistent symptoms. We are open05/04 and will take care of you. DESIGN DRAFTSPERSON documented in this encounter Medications at Time [...] 12 doses 12 tablet 3 atenoloL (TENORMIN) 25 mg tablet Take 4 tablets (100 mg total) by mouth daily for 30 doses 120 tablet 4 atenoloL (TENORMIN) 50 mg tablet Take 2 [...] up to 20 doses 20 tablet 4 hyoscyamine (LEVSIN) 0.125 mg tabletIndications:U rinary [...] mg total) by mouth daily 30 capsule 4 omeprazole (PriLOSEC) 40 mg capsule Take 1 capsule (40 mg total) by mouth daily 60 capsule 4 07/20/20 25 ondansetron ODT (ZOFRAN-ODT) 4 mg disintegrating tablet Take 1 tablet (4 mg total) by mouth every 8 (eight) hours as needed for nausea or vomiting 20 tablet 4 polyethylene glycol (MIRALAX) 17 gram packet daily TAKE: 1 packet mixed with 8 ounces of fluid, Once a day promethazine (PHENERGAN) 25 mg tablet Take 1 tablet (25 mg total) by mouth every 6 (six) hours as needed for nausea or vomiting 12 tablet 4 simethicone (MYLICON) 125 mg chewable tablet 125 mg 4 (four) times a day ciprofloxacin (CIPRO) 500 mg tablet Take 1 tablet (500 mg total) by mouth every 12 (twelve) hours for 10 days 20 tablet 4 07/30/20 24 HYDROcodone-acetami nophen (NORCO) 5-325 mg per tabletIndications:P ain Take 1 tablet by mouth every 6 (six) hours as needed for pain for up to 5 days 20 tablet 4 07/25/20 24 metroNIDAZOLE (FLAGYL) 500 mg tablet Take 1 tablet (500 mg total) by mouth 3 (three) times a day for 10 days 30 tablet 4 07/30/20 24 documented as of this encounter Ordered Prescriptions Prescription Sig Dispense Quantity Refills Last Filled Start Date End Date omeprazole (PriLOSEC) 40 mg capsule Take 1 capsule (40 mg total) by mouth daily 60 capsule 07/20/2024 5 atenoloL (TENORMIN) 50 mg tablet Take 2 tablets (100 mg total) by mouth daily 120 tablet 07/20/2024 5 metroNIDAZOLE (FLAGYL) 500 mg tablet Take 1 tablet (500 mg total) by mouth 3 (three) times a day for 10 days 30 tablet 07/20/2024 4 HYDROcodone-acetam inophen (NORCO) 5-325 mg per tabletIndications: Pain Take 1 tablet by mouth every 6 (six) hours as needed for pain for up to 5 days 20 tablet 07/20/2024 4 ciprofloxacin (CIPRO) 500 mg tablet Take 1 tablet (500 mg total) by mouth every 12 (twelve) hours for 10 days 20 tablet 07/20/2024 4 atenoloL (TENORMIN) 50 mg tablet Take 2 tablets (100 mg total) by mouth daily 120 tablet 07/20/2024 4 omeprazole (PriLOSEC) 40 mg capsule Take 1 capsule (40 mg total) by mouth daily 60 capsule 07/20/2024 4 HYDROcodone-acetam inophen (NORCO) 5-325 mg per tabletIndications: Pain Take 1 tablet by mouth every 6 (six) hours as needed for pain for up to 5 days 20 tablet 07/20/2024 4 metroNIDAZOLE (FLAGYL) 500 mg tablet Take 1 tablet (500 mg total) by mouth 3 (three) times a day for 10 days 30 tablet 07/20/2024 4 ciprofloxacin (CIPRO) 500 mg tablet Take 1 tablet (500 mg total) by mouth every 12 (twelve) hours for 10 days 20 tablet 07/20/2024 4 documented in this encounter Discharge Disposition Disposition Code Departure Means Destination Comment s Discharge to home or self care documented in this encounter ED Notes * Grey Figueroa PA - 07/20/2024 4:39 PM CST CHIEF COMPLAINT: Chief Complaint Patient presents with Urinary Problem HPI 5:34 PM Carlos Mcgee is a 54 y.o. male presenting to the ED c/o lower abdominal pain. Patient presents to ED with reports of chronic bladder pain. Patient has history of diverticulitis and renal mass for which she has consulted surgery for. Patient currently reports urinary frequency and lower abdominal pain. Patient denies fever, dysuria, hematuria PCP: Unknown, Notinfile PAST MEDICAL HISTORY Past Medical History: Diagnosis [...] Disp: 12 tablet, Rfl: 0 atenoloL (TENORMIN) 25 mg tablet, Take 4 tablets (100 mg total) by mouth daily for 30 doses, Disp: 120 tablet, Rfl: 0 atenoloL (TENORMIN) 50 mg tablet, Take 2 tablets (100 mg total) by mouth daily, Disp: 120 tablet, Rfl: 0 bisacodyl EC (DULCOLAX EC) 5 mg EC tablet, Take 1 tablet (5 mg total) by mouth daily as needed for constipation (Patient not taking: Reported on 07/20/2024), Disp: 4 tablet, Rfl: 0 ciprofloxacin (CIPRO) 500 mg tablet, Take 1 tablet (500 mg total) by mouth every 12 (twelve) hours for 10 days, Disp: 20 tablet, Rfl: 0 cyclobenzaprine (FLEXERIL) 10 mg tablet, Take 1 tablet (10 mg total) by mouth 3 (three) times a dayas needed for muscle spasms for up to 20 doses (Patient not taking: Reported on 07/20/2024), Disp: 20 tablet, Rfl: 0 diphenhydrAMINE (BENADRYL) 25 mg capsule, Take 1 tablet/capsule (25 mg total) by mouth 2 (two) times a day, Disp: , Rfl: fluticasone propionate (FLONASE) 50 mcg/actuation nasal spray, Administer 2 sprays into each nostril daily, Disp: 1 Inhaler, Rfl: 5 HYDROcodone-acetaminophen (NORCO) 5-325 mg per tablet, Take 1 tablet by mouth every 6 (six) hours as needed for pain for up to 20 doses, Disp: 20 tablet, Rfl: 0 HYDROcodone-acetaminophen (NORCO) 5-325 mg per tablet, Take 1 tablet by mouth every 6 (six) hours as needed for pain for up to 5 days, Disp: 20 tablet, Rfl: 0 hyoscyamine (LEVSIN) 0.125 mg tablet, Take 1 tablet (0.125 mg total) by mouth every 4 (four) hours as needed for cramping, Disp: 30 tablet, Rfl: 0 ibuprofen (ADVIL,MOTRIN) 600 mg tablet, Take 1 tablet (600 mg total) by mouth every 6 hours, Disp: , Rfl: meclizine (ANTIVERT) 25 mg tablet, Take 1 tablet (25 mg total) by mouth every 12 hours, Disp: , Rfl: metroNIDAZOLE (FLAGYL) 500 mg tablet, Take 1 tablet (500 mg total) by mouth 3 (three) times a day for 10 days, Disp: 30 tablet, Rfl: 0 mirabegron ER (MYRBETRIQ) 25 mg tablet extended release 24 hr, Take 1 tablet (25 mg total) by mouthdaily, Disp: 30 tablet, Rfl: 2 omeprazole (PriLOSEC) 40 mg capsule, Take 1 capsule (40 mg total) by mouth daily, Disp: 30 capsule,Rfl: 0 omeprazole (PriLOSEC) 40 mg capsule, Take 1 capsule (40 mg total) by mouth daily, Disp: 60 capsule,Rfl: 0 ondansetron ODT (ZOFRAN-ODT) 4 mg [...] 8 ounces of fluid, Once a day (Patient not taking: Reported on 07/20/2024), Disp: , Rfl: promethazine (PHENERGAN) 25 mg tablet, Take 1 tablet (25 mg total) by mouth every 6 (six) hours as needed for nausea or vomiting (Patient not taking: Reported on 07/20/2024), Disp: 12 tablet, Rfl: 0 simethicone (MYLICON) 125 mg chewable tablet, 125 mg 4 (four) times a day (Patient not taking: Reported on 07/20/2024), Disp: , Rfl: solifenacin (VESIcare) 10 mg tablet, Take 1 tablet (10 mg total) by mouth daily, Disp: 30 tablet, Rfl: 11 sucralfate (CARAFATE) suspension 1 gram/10 mL, Take 10 mL (1 g total) by mouth 2 (two) times a day for 15 days, Disp: 300 mL, Rfl: 0 ALLERGIES Allergies Allergen Reactions Alum-Mag Hydroxide-Simeth Shortness [...] Sulfa (Sulfonamide Antibiotics) Hives Sulfamethoxazole-Trimethoprim Hives Hives Tramadol Hives Uroseptic Ds Rash Panic attack Zyprexa [...] date: 1990 Quit date: 1995 Years since quittin.8 Smokeless tobacco: Never Substance and Sexual Activity Drug use: Never Sexual activity: None Alcohol Use: Not on file PHYSICAL EXAM TRIAGE VITAL SIGNS: ED Triage Vitals [07/20/24 1117] Temp Pulse Resp BP SpO2 36.3 ??C (97.4 ??F) 57 18 138/72 100 % Temp src Heart Rate Source Patient Position BP Location FiO2 (%) Tympanic -- -- -- -- Height Height Method Weight Weight Method 1.88 m (6' 2 ) Stated 122.6 kg (270 lb 4.5 oz) Standing scale Physical Exam Vitals and nursing note reviewed. Constitutional: General: He is not in acute distress. Appearance: He is well-developed. HENT: Head: Normocephalic and atraumatic. Eyes: Conjunctiva/sclera: Conjunctivae normal. Cardiovascular: Rate and Rhythm: Normal rate and regular rhythm. Heart sounds: No murmur heard. Pulmonary: Effort: Pulmonary effort is normal. No respiratory distress. Breath sounds: Normal breath sounds. Abdominal: Palpations: Abdomen is soft. Tenderness: There is abdominal tenderness in the suprapubic area and left lower quadrant. Musculoskeletal: General: No swelling. Cervical back: Neck supple. Skin: General: Skin is warm and dry. Capillary Refill: Capillary refill takes less than 2 seconds. Neurological: Mental Status: He is alert. Psychiatric: Mood and Affect: Mood normal. LABS Labs Reviewed URINALYSIS AND REFLEX TO MICROSCOPIC AND CULTURE Result Value Color, ur Yellow Clarity, ur Clear Specific gravity, ur 1.015 pH, urine 5.5 Protein, ur ql Negative Glucose, ur ql Negative Ketones, ur Negative Bilirubin, ur Negative Blood, ur Negative Urobilinogen, ur <2.0 Nitrite, ur Negative Leukocyte esterase, ur Negative UA reflex comment Value: Reflex conditions for microscopic UA and culture not met. ED COURSE/MEDICAL DECISION MAKING Differential diagnosis included but not limited to diverticulitis, UTI, nephrolithiasis, renal cancer, colon cancer Patient's medical records were reviewed. ED Course as of 07/20/241733 Time: 07/20 1730 Comment: Patient presents to ED with reports of chronic bladder pain. Patient has history of diverticulitis and renal mass for which she has consulted surgery for. Patient currently reports urinary frequency and lower abdominal pain. Patient denies fever, dysuria, hematuria By: Grey Figueroa PA Time: 07/20 1732 Value: Urinalysis reflex to microscopic and culture Urine, clean voided: Color, ur Yellow Clarity, ur Clear Specific gravity, ur 1.015 pH, urine 5.5 Protein, ur ql Negative Glucose, ur ql Negative Ketones, ur Negative Bilirubin, ur Negative Blood, ur Negative Urobilinogen, ur <2.0 Nitrite, ur Negative Leukocyte esterase, ur Negative UA reflex comment Reflex conditions for microscopic UA and culture not met. Comment: (Reviewed) By: Grey Figueroa PA Time: 07/20 1732 Comment: Patient reports he has been unable to complete surgery due to disagreement with surgeon. Patient also reports he has been waiting to establish PCP care. Patient had medications refilled. Patient was discharged By: Grey Figueroa PA Procedures FINAL IMPRESSION Left lower quadrant abdominal pain DISPOSITION: Home All findings were discussed with patient. Pt agreeable with plan. Non toxic appearing, vitals stable. Patient stable for discharge home. Given return to ER precautions Close outpatient follow-up with a low threshold to return has been mandated, concerning symptoms have been emphasized in detail, and this patient expresses understanding PATIENT INSTRUCTED TO FOLLOW UP [facility] [address] [id number] DISCHARGE MEDICATIONS Your medication list START taking these medications Instructions Last Dose Given Next Dose Due ciprofloxacin 500 mg tablet Commonly known as: CIPRO Take 1 tablet (500 mg total) by mouth every 12 (twelve) hours for 10 days metroNIDAZOLE 500 mg tablet Commonly known as: FLAGYL Take 1 tablet (500 mg total) by mouth 3 (three) times a day for 10 days CHANGE how you take these medications Instructions Last Dose Given Next Dose Due atenoloL 25 mg tablet Commonly known as: TENORMIN What changed: Another medication with the same name was added. Make sure you understand how and when to take each. Take 4 tablets (100 mg total) by mouth daily for 30 doses atenoloL 50 mg tablet Commonly known as: TENORMIN What changed: You were already taking a medication with the same name, and this prescription was added. Make sure you understand how and when to take each. Take 2 tablets (100 mg total) by mouth daily HYDROcodone-acetaminophen 5-325 mg per tablet Commonly known as: NORCO What changed: Another medication with the same name was added. Make sure you understand how and when to take each. Take 1 tablet by mouth every 6 (six) hours as needed for pain for up to 20 doses HYDROcodone-acetaminophen 5-325 mg per tablet Commonly known as: NORCO What changed: You were already taking a medication with the same name, and this prescription was added. Make sure you understand how and when to take each. Take 1 tablet by mouth every 6 (six) hours as needed for pain for up to 5 days omeprazole 40 mg capsule Commonly known as: PriLOSEC What changed: Another medication with the same name was added. Make sure you understand how and when to take each. Take 1 capsule (40 mg total) by mouth daily omeprazole 40 mg capsule Commonly known as: PriLOSEC What changed: You were already taking a medication with the same name, and this prescription was added. Make sure you understand how and when to take each. Take 1 capsule (40 mg total) by [...] for anxiety for up to 12 doses bisacodyl EC 5 mg EC tablet Commonly known as: DULCOLAX EC Take 1 tablet (5 mg total) by mouth daily as needed for constipation cyclobenzaprine 10 mg tablet Commonly known as: FLEXERIL Take 1 tablet (10 mg total) by mouth 3 (three) times a day as needed for muscle spasms for up to 20doses diphenhydrAMINE 25 mg capsule Commonly known as: BENADRYL Take 1 tablet/capsule (25 mg total) by [...] mg tablet Commonly known as: ADVIL,MOTRIN Take 1 tablet (600 mg total) by mouth every 6 hours meclizine 25 mg tablet Commonly known as: ANTIVERT Take 1 tablet (25 mg total) by mouth every 12 hours mirabegron ER 25 mg tablet extended release 24 hr Commonly known as: MYRBETRIQ Take 1 tablet (25 mg total) by mouth daily ondansetron ODT 4 mg disintegrating tablet Commonly known as: ZOFRAN-ODT Take 1 tablet (4 mg total) by mouth every 8 (eight) hours as needed for nausea or vomiting oxyBUTYnin 5 mg tablet Commonly known as: [...] tablet (10 mg total) by mouth daily sucralfate 100 mg/mL suspension Commonly known as: CARAFATE Take 10 mL (1 g total) by mouth 2 (two) times a day for 15 days Where to Get Your Medications These medications were sent to [id number] - [place], [place] - [address] [facility] [address], [facility] [id number] atenoloL 50 mg tablet ciprofloxacin 500 mg tablet HYDROcodone-acetaminophen 5-325 mg per tablet metroNIDAZOLE 500 mg tablet omeprazole 40 mg capsule This examination was transcribed using the [employer] voice recognition system without human car and yard supervisor. In an effort to expedite patient care, this report has not been adjusted for typographical, grammatical, and syntax by a trained medical imaging technician. Grey Figueroa PA 07/20/24 1734 Cosigned by Zayda Ku MD at 07/20/2024 7:16 PM TOOL DESIGN DRAFTSPERSON DESIGN DRAFTSPERSON DESIGN DRAFTSPERSON * Merna Gaitan RN - 07/20/2024 11:18 AM CST Pt arrived from home with reports of bladder pain ongoing since 06/24/24. Pt taking otc medication without relief. Pt reports seen at multiple facilities for same problem DESIGN DRAFTSPERSON documented in this encounter Plan of Treatment Scheduled Procedures Name Priority Associated Diagnoses Date/Ti mi COLONOSCOPY Open Access Diverticulitis documented as of this encounter Procedures Procedure Name Priority Date/Time Associated Diagnosis Comments URINALYSIS AND REFLEX TO MICROSCOPIC AND CULTURE STAT 07/20/2024 11:29 AM TOOL DESIGN DRAFTSPERSON documented in this encounter Results * Urinalysis reflex to microscopic and culture Urine, clean voided (07/20/2024 11:29 AM TOOL DESIGN DRAFTSPERSON) Color, ur Yellow Yellow Comment:Testing performed by : [address] [address] Clarity, ur Clear Clear VAL Comment:Testing performed by : [address] [address] Specific gravity, ur 1.015 1.003 - 1.030 VAL Comment:Testing performed by : [address], [place]., [address] pH, urine 5.5 VAL Comment: Interpretive Data ? Urine pH is affected by diet, medications, systemic acid-base disturbances, and renal tubular function. ??pH may affect urinary stone formation. ??For example, urine pH below 6.0 may help reduce the tendency for calcium phosphate stones and pH greater than 6.0 may reduce the tendency for uric acid stone formation. Source: [facility] [employer] Current Interpretive Data was last revised on 2017 Testing performed by: [address] [address] Protein, ur ql Negative Negative VAL Comment:Testing performed by : [address] [address] Glucose, ur ql Negative Negative VAL Comment:Testing performed by : [address] [address] Ketones, ur Negative Negative VAL Comment:Testing performed by : [address] [address] Bilirubin, ur Negative Negative VAL Comment:Testing performed by : [address], [place]., [address] Blood, ur Negative Negative VAL Comment:Testing performed by : [address] [address] Urobilinogen, ur <2.0 <2.0 mg/dL VAL Comment:Testing performed by : [address] [address] Nitrite, ur Negative Negative VAL Comment:Testing performed by : [address] [address] Leukocyte esterase, ur Negative Negative VAL Comment:Testing performed by : [address], [place]., [address] UA reflex comment Reflex conditions for microscopic UA and culture not met. VAL Comment:Testing performed by : [address] [address] Urine, clean voided 07/20/2024 11:29 AM TOOL DESIGN DRAFTSPERSON 07/20/2024 11:34 AM TOOL DESIGN DRAFTSPERSON us Zayda Ku MD LAB MICROBIOLOGY - GEN ERAL ORDERABLES Final Result [facility] Department [place] [address] documented in this encounter Visit Diagnoses Diagnosis Left lower quadrant abdominal pain- Primary documented in this encounter Discontinued Medications Medication Sig Discontinue Reason Start Date End Da te ciprofloxacin (CIPRO) 500 mg tablet Take 1 tablet (500 mg total) by mouth every 12 (twelve) hours for 10 days 07/20/2024 07/20/2024 metroNIDAZOLE (FLAGYL) 500 mg tablet Take 1 tablet (500 mg total) by mouth 3 (three) times a day for 10 days 07/20/2024 07/20/2024 HYDROcodone-acetaminophe n (NORCO) 5-325 mg per tabletIndications:Pain Take 1 tablet by mouth every 6 (six) hours as needed for pain for up to 5 days 07/20/2024 07/20/2024 omeprazole (PriLOSEC) 40 mg capsule Take 1 capsule (40 mg total) by mouth daily 07/20/2024 07/20/2024 atenoloL (TENORMIN) 50 mg tablet Take 2 tablets (100 mg total) by mouth daily 07/20/2024 07/20/2024 documented as of this encounter Care Teams Inspector Final Assembly Conveyor Line Relationship Specialty Start Date End Date Unknown, Notinfile PCP - General 04/22/24 07/30/24 Miscellaneous, Not In File 11/16/19 documented as of this encounter
--- OUTSIDE RECORDS SUMMARY | 2024-09-10 04:07 | XMS_ITS | Encounter Summary ---
Author Organization [facility] Healthcare Address [address] [place] [id number] Care Team Providers Care Bottle Blower Name Role Phone Miscellaneous, Not In File Unavailable Unava ilable Unknown, Notinfile Primary Care Provider Unavail able Encounter Details Date Type Department Care Team (Late st Contact Info) Description 05/10/2024 Telephone [facility] Medical Group Gastroenterology at [address] [place] [address] Ivy Mariano MA Social History Tobacco Use Types Packs/Day Years [...] on file Legal 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 documented in this encounter Plan of Treatment Scheduled Procedures Name Priority Associated Diagnoses Date/Ti me COLONOSCOPY Open Access Diverticulitis documented as of this encounter Visit Diagnoses Not on filedocumented in this encounter Care Teams Bottle Blower Relationship Specialty Start Date End Date Unknown, Notinfile PCP - General 04/22/24 07/30/24 Miscellaneous, Not In File 11/16/19 documented as of this encounter
--- OUTSIDE RECORDS SUMMARY | 2024-09-10 04:07 | XMS_ITS | Encounter Summary ---
Author Organization [facility] Healthcare Address [address] [place] [id number] Care Team Providers Care Global Expansion Sales Director Name Role Phone Miscellaneous, Not In File Unavailable Unava ilable Unknown, Notinfile Primary Care Provider Unavail able Encounter Details Date Type Department Care Team (Late st Contact Info) Description 05/08/2024 Telephone [facility] Gastroenterology at [address] [place] [address] Jd Mayes MD [address] [place] [address] [address] [place] [address] Social History Tobacco Use Types [...] on file Legal Sex Male 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[employer]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 Patient stated he can not take Miralax, patient gets cramps but no BM. I did ask patient to try two day prep instead but he will not. Patient also has allergies to Suprep so unable to take. Is there an alternative patient can use for prep. documented in this encounter Plan of Treatment Scheduled Procedures Name Priority Associated Diagnoses Date/Ti me COLONOSCOPY Open Access Diverticulitis documented as of this encounter Visit Diagnoses Diagnosis Colon cancer screening- Primary Special screening for malignant neoplasms, colon documented in this encounter Care Teams Global Expansion Sales Director Relationship Specialty Start Date End Date Unknown, Notinfile PCP - General 04/22/24 07/30/24 Miscellaneous, Not In File 11/16/19 documented as of this encounter
--- OUTSIDE RECORDS SUMMARY | 2024-09-10 04:07 | XMS_ITS | Encounter Summary ---
Author Organization [facility] Healthcare Address [address] [place] [id number] Care Team Providers Care First Coat Sander Name Role Phone Miscellaneous, Not In File Unavailable Unava ilable Unknown, Notinfile Primary Care Provider Unavail able Encounter Details Date Type Department Care Team (Latest Contact Info) Description 04/22/2024 4:40 PM CDT - 04/22/2024 11:59 PM CDT Hospital Encounter [address] [address] Dysuria Discharge Disposition: Discharge to home or self care Social History Tobacco Use Types Packs/Day Years Used Date Smoking Tobacco: Former Cigarettes 1 1 - 1995 Smokeless Tobacco: Never Alcohol [...] on file Legal 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 Gender Identity Not on file Sexual Orientation [...] 125 mg 4 (four) times a day atenoloL (TENORMIN) 100 mg tabletIndications:E ssential hypertension [...] 01/18/2024 4 documented as of this encounter Discharge Disposition Disposition Code Departure Means Destination Discharge to home or self care documented in this encounter Plan of Treatment Scheduled Procedures Name Priority Associated Diagnoses Date/Ti me COLONOSCOPY Open Access Diverticulitis documented as of this encounter Procedures Procedure Name Priority Date/Time Associated Diagnosis Comments URINE CULTURE Routine 04/22/2024 4:40 PM CDT Dysuria documented in this encounter Results * Urine culture Urine, clean voided (04/22/2024 4:40 PM CDT) Report Final Report: No growth Comment:Testing performed by : [facility], [address] [place] [address] Urine, clean voided 04/22/2024 4:40 PM CDT 04/22/2024 7:06 PM CDT Narrative VAL Sol 04/23/2024 8:08 PM CDT Testing performed by [facility] Microbiology Laboratory ([phone]) us Ludwig Stern NP LAB MICROBIOLOGY - GENERAL [place] [id number] [address] [place] [address] documented in this encounter Visit Diagnoses Diagnosis Dysuria documented in this encounter Care Teams First Coat Sander Relationship Specialty Start Date End Date Unknown, Notinfile PCP - General 04/22/24 07/30/24 Miscellaneous, Not In File 11/16/19 documented as of this encounter
--- OUTSIDE RECORDS SUMMARY | 2024-09-10 04:07 | XMS_ITS | Encounter Summary ---
Author Organization [facility] Healthcare Address [address] [place] [id number] Care Team Providers Care Manager Infusion Name Role Phone Miscellaneous, Not In File Unavailable Unava ilable Unknown, Notinfile Primary Care Provider Unavail able Reason for Visit * Reason Comments Abdominal Pain Rectal Pain Encounter Details Date Type Department Care Team (Late st Contact Info) Description 06/24/2024 12:15 AM CDT - 06/24/2024 2:58 AM CDT Emergency [facility] Emergency Department [address] [place] [address] Ben Leslie MD [address] [place] [address] [place] [address] Diverticulitis (Primary Dx); Essential hypertension Discharge Disposition: [...] on file 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 Gender Identity Not on file Sexual Orientation Not on file documented as of this encounter Last Filed Vital Signs Vital Sign Reading Time Taken Comments Blood Pressure 146/94 06/24/2024 2:35 AM CDT Pulse 65 06/24/2024 2:35 AM CDT Temperature 36.9 ??C (98.5 ??F) 06/24/2024 1 2:25 AM CDT Respiratory Rate 16 06/24/2024 2:35 AM CDT Oxygen Saturation 100% 06/24/2024 2:35 AM CDT Inhaled Oxygen Concentration - - Weight 122.4 kg (269 lb 13.5 oz) 06/23/2024 9:54 PM CDT Height 188 cm (6' 2 ) 06/23/2024 9:54 PM CDT Body Mass Index 34.65 06/23/2024 9:54 PM CDT documented in this encounter Discharge Instructions * Discharge Instructions* Ben Leslie MD - 06/24/2024 2:25 AM CDT Take medications as prescribed Follow-up with colorectal surgeon this week Return to emergency department if you have any further concerns. * Attachments The following attachments cannot be sent through Care Everywhere. 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) (Bur[place]ian) documented in this encounter Medications at Time [...] daily for 30 doses 120 tablet 4 bisacodyl EC (DULCOLAX EC) 5 mg EC [...] total) by mouth daily 30 capsule 4 ondansetron ODT (ZOFRAN-ODT) 4 mg disintegrating tablet [...] mouth 2 (two) times a day for 10 days 14 tablet 4 07/04/20 24 metroNIDAZOLE (FLAGYL) 500 mg tablet Take 1 tablet (500 mg total) by mouth 3 (three) times a day for 10 days 30 tablet 4 07/04/20 24 citalopram (CeleXA) 40 mg tablet Take 1 tablet (40 mg total) by mouth every morning for 10 days 10 tablet 3 07/20/20 24 documented as of this encounter Ordered Prescriptions Prescription Sig Dispense Quantity Refills Last Filled Start Date End Date atenoloL (TENORMIN) 25 mg tablet Take 4 tablets (100 mg total) by mouth daily for 30 doses 120 tablet 06/24/2024 omeprazole (PriLOSEC) 40 mg capsule Take 1 capsule (40 mg total) by mouth daily 30 capsule 06/24/2024 HYDROcodone-acetam inophen (NORCO) 5-325 mg per tabletIndications: Pain Take 1 tablet by mouth every 6 (six) hours as needed for pain for up to 20 doses 20 tablet 06/24/2024 atenoloL (TENORMIN) 25 mg tablet Take 1 tablet (25 mg total) by mouth daily for 20 doses 20 tablet 06/24/2024 4 metroNIDAZOLE (FLAGYL) 500 mg tablet Take 1 tablet (500 mg total) by mouth 3 (three) times a day for 10 days 30 tablet 06/24/2024 4 ciprofloxacin (CIPRO) 500 mg tablet Take 1 tablet (500 mg total) by mouth 2 (two) times a day for 10 days 14 tablet 06/24/2024 4 documented in this encounter Discharge Disposition Disposition Code Departure Means Destination Comment s Discharge to home or self care documented in this encounter ED Notes * Ben Leslie MD - 06/24/2024 2:18 AM CDT HPI Chief Complaint Patient presents with Abdominal Pain Rectal Pain Patient is a pleasant 54-year-old white male. Patient has a history of diverticulitis in the past. Patient also has known mass in his sigmoid colon. Patient also has questionable fistula. CT here showed fistula, mass. Patient reports moderate to severe pain in his abdomen. Patient has history of div erticulitis. He says this feels like the diverticulitis. Patient denies nausea, vomiting, chest pain, shortness breast. Patient appears quite anxious. Patient has a appointment with a colorectal surgeon this week. 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[facility]) ([facility]) 10/17/2020 Renal calculi 10/17/2020 Irritable bowel syndrome with constipation and diarrhea 10/17/2020 Fistula 10/17/2020 Chronic chest wall pain 10/17/2020 Benzodiazepine abuse ([facility]) 10/17/2020 Xanax use disorder, severe, dependence ([facility]) ([facility]) 11/16/2019 Type 2 diabetes mellitus with other specified complication ([facility]) 11/16/2019 Severe obesity (BMI 35.0-35.9 with comorbidity) ([facility]) 11/16/2019 Benign neoplasm of colon 02/13/2019 Asthma 02/13/2019 Arthritis 02/13/2019 Palpitations 06/27/2018 Other acute recurrent sinusitis 05/10/2018 Moderate episode of recurrent major depressive disorder ([facility]) 03/01/2018 Sleep apnea 03/01/2018 Recurrent major depressive disorder, in partial remission ([facility]) 03/12/2017 Anxiety 03/12/2017 Obesity (BMI 30-39.9) 03/12/2017 Benzodiazepine dependence ([facility]) 03/12/2017 Essential hypertension 03/12/2017 Allergic rhinitis 03/12/2017 Microcytic anemia 07/02/2015 SOB (shortness of breath) 07/02/2015 Type 2 diabetes mellitus without complication ([facility]) ([facility]) 08/28/2014 Paresthesias with subjective weakness 08/28/2014 PTSD (post-traumatic stress disorder) 08/28/2014 Cervical stenosis of spinal canal 08/28/2014 Diverticulitis of colon 09/11/2013 Sedative, hypnotic or anxiolytic abuse, continuous ([facility]) ([facility]) 06/18/2009 Gastroesophageal reflux disease 06/13/2009 Past Medical History: Diagnosis Date Anxiety Arthritis Asthma Benzodiazepine dependence ([facility]) Colon tumor sigmoid benign Depression Diverticulitis Diverticulosis Hypertension PTSD (post-traumatic stress disorder) Recurrent major depressive disorder ([facility]) Type 2 diabetes mellitus ([facility]) Past Surgical History: Procedure Laterality Date CHOLECYSTECTOMY [...] Not Currently Drug use: Never Sexual activity: Not on file Social History Social History Narrative Merged History Encounter Patient is . He lives independently. He is employed Review of Systems Review of Systems Constitutional: Negative for chills and fever. Respiratory: Negative for cough, chest tightness and shortness of breath. Cardiovascular: Negative for chest pain. Gastrointestinal: Positive for abdominal pain and nausea. Negative for blood in stool. Physical Exam ED Triage Vitals Temp Pulse Resp BP SpO2 06/23/24215306/23/24215306/23/24215306/23/24215306/23/242153 36.2 ??C (97.2 ??F) 64 20 (!) 182/97 97 % Temp src Heart Rate Source Patient Position BP Location FiO2 (%) 06/23/242153 -- 06/24/24 0025 06/24/24 0025 -- Tympanic HOB 30 degrees Right arm Height Height Method Weight Weight Method 06/23/242153 -- 06/23/24215306/23/242153 1.88 m (6' 2 ) 122.4 kg (269 lb 13.5 oz) Standing scale Physical Exam Vitals and [...] alert. Psychiatric: Mood and Affect: Mood normal. 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 Patient also has the appearance of diverticulitis. Will start the patient on Flagyl, ciprofloxacin and [place]. Patient to follow-up with his GI surgeon this week. Please note patient does not have primary care and I asked me to refill his atenolol and Prilosec. Amount and/or Complexity of Data Reviewed Labs: ordered. Risk Prescription drug management. Final diagnoses: Diverticulitis Ben Leslie MD 06/24/24 0225 * Vignesh Gentile RN - 06/24/2024 12:29 AM CDT Pt to ED-8 with report of lower abd pain and penile pain x 2 months. Pt has hx of bladder/colon fistula and known bowel mass for which he has an appointment with colorectal surgery at [facility] for 06/29/2024. BS positive throughout. PT reports last BM today was loose and normally has problems with constipation. Pt reports nausea no emesis. Skin warm, dry, and pink. Pt states normally when I get penile pain and I can press on it and it makes it hurt I have diverticulitis, or at least that's what my doctor told me. exam deferred to ERP. Vignesh Gentile RN 06/24/24 0033 * Kita Hugo RN - 06/23/2024 9:52 PM CDT Penis, bladder and colon pain with chills x 2 months worse today. [facility] has doctors appointment with colorectal dr x 06/29 at [place]. documented in this encounter Plan of Treatment Scheduled Procedures Name Priority Associated Diagnoses Date/Ti me COLONOSCOPY Open Access Diverticulitis documented as of this encounter Procedures Procedure Name Priority Date/Time Associated Diagnosis Comments CT ABDOMEN PELVIS WO CONTRAST ED 06/23/2024 11:22 PM CDT LACTATE STAT 06/23/2024 10:05 PM CDT EGFR STAT 06/23/2024 10:02 PM CDT DIFFERENTIAL AUTO STAT 06/23/2024 10: 02 PM CDT URINALYSIS AND REFLEX TO MICROSCOPIC AND CULTURE STAT 06/23/2024 10:02 PM CDT CBC WITH AUTO DIFFERENTIAL STAT 06/23/2024 10:02 PM CDT URINALYSIS, MICROSCOPIC ONLY STAT 06/23/2024 10:02 PM CDT LIPASE STAT 06/23/2024 10:02 PM CDT COMPREHENSIVE METABOLIC PANEL STAT 06/23/2024 10:02 PM CDT documented in this encounter Results * CT Abdomen Pelvis WO Contrast (06/23/2024 [...] appointment with colorectal dr x 06/29 at [place]. ?? Hx linda ?? TECHNIQUE: CT scan [...] PM T: ??06/23/2024 11:37 PM Report ID: [id number] Reading Location: ??[id number] Procedure Note Dave Martin MD - 06/23/2024 EXAM DESCRIPTION: CT ABDOMEN PELVIS WO CONTRAST REASON FOR STUDY: Abdominal pain, acute, nonlocalized Penis, bladder and colon pain with chills x 2 months worse today. [facility] appointment with colorectal x 06/29 at [place]. Hx linda TECHNIQUE: CT scan of the [...] Dave Martin M.D. KH: TATIANA Report ID: [id number] Reading Location: [place] [address] [place] Jaimie Briggs Magdalenekim [employer]ED [employer] MANAGER IMG CT PROCEDURES Final Result * Lactate (06/23/2024 10:05 PM CDT) Lactate 1.5 0.7 - 2.0 mmol/L Comment:Testing performed by : [facility], [address] [place] [address], [address] Blood 06/23/2024 10:0 5 PM CDT 06/23/2024 10:08 PM CDT us Ben Leslie MD LAB BLOOD ORDERABLES Final Result Performing Organization Address City/State/[facility] Co de Phone Number [facility] [address] [facility] Department [place] [address] * eGFR (06/23/2024 10:02 PM [...] was last reviewed 2021. Testing performed by: [address] [address] Blood 06/23/2024 10:0 2 PM CDT 06/23/2024 10:08 PM CDT Ben Leslie MD LAB BLOOD ORDERABLES Final Result VAL [address] [facility] Department of Laboratories [place], [place] [id number] * (ABNORMAL) Urinalysis, microscopic only (06/23/2024 10:02 PM CDT) WBC, ur 0-5 0 - 5 /HPF Comment:Testing performed by : [address] [address] RBC, ur 0-2 0 - 2 /HPF VAL Comment:Testing performed by : [address] [address] Epithelial cells, squamous, ur 1-5 0 - 5 /HPF VAL Comment:Testing performed by : [address] [address] Mucous, ur Present(A) VAL Comment:Testing performed by : [address] [address] Hyaline casts, ur 1-5 0 - 10 /LPF VAL Comment:Testing performed by : [address] [address] Culture Reflex Comment Reflex conditions for urine culture (WBC >10) not met. VAL Comment:Testing performed by : [address] [address] Urine 06/23/2024 10:0 2 PM CDT 06/23/2024 10:15 PM CDT Ben Leslie MD LAB URINE ORDERABLES Final Result VAL [address] [facility] Department [place] [address] * Differential, auto (06/23/2024 10:02 PM CDT) Neutrophil abs 3.5 1.5 - 6.5 K/cumm Comment:Testing performed by : [address] [address] Imm gran abs 0.0 0.0 - 0.1 K/cumm VAL Comment:Testing performed by : [address] [address] Lymphocyte abs 1.0 0.8 - 3.3 K/cumm VAL Comment:Testing performed by : [address] [address] Monocyte abs 0.2 0.2 - 0.8 K/cumm [facility] Comment:Testing performed by : [address] [address] Eosinophil abs 0.1 0.0 - 0.5 K/cumm [facility] Comment:Testing performed by : [address] [address] Basophil abs 0.0 0.0 - 0.1 K/cumm [facility] Comment:Testing performed by : [address] [address] Neutrophil pct 73.1 % [facility] Comment: Interpretive Data Percent cell count reference ranges are not reported, since discordance with absolute values may lead to misinterpretation of CBC data. Current Interpretive Data was last revised on 2017. Testing performed by: [address] [address] Imm gran pct 0.2 % VAL Comment: Interpretive Data Percent cell count reference ranges are not reported, since discordance with absolute values may lead to misinterpretation of CBC data. Current Interpretive Data was last revised on 2017. Testing performed by: [address] [address] Lymphocyte pct 20.5 % VAL Comment: Interpretive Data Percent cell count reference ranges are not reported, since discordance with absolute values may lead to misinterpretation of CBC data. Current Interpretive Data was last revised on 2017. Testing performed by: [address] [address] Monocyte pct 4.6 % VAL Comment: Interpretive Data Percent cell count reference ranges are not reported, since discordance with absolute values may lead to misinterpretation of CBC data. Current Interpretive Data was last revised on 2017. Testing performed by: [address] [address] Eosinophil pct 1.0 % VAL Comment: Interpretive Data Percent cell count reference ranges are not reported, since discordance with absolute values may lead to misinterpretation of CBC data. Current Interpretive Data was last revised on 2017. Testing performed by: [address] [address] Basophil pct 0.6 % VAL Comment: Interpretive Data Percent cell count reference ranges are not reported, since discordance with absolute values may lead to misinterpretation of CBC data. Current Interpretive Data was last revised on 2017. Testing performed by: [address] [address] Blood 06/23/2024 10:0 2 PM CDT 06/23/2024 10:08 PM CDT us Ben Leslie MD LAB BLOOD ORDERABLES Final Result [facility] [address] [facility] Department [place] [address] * (ABNORMAL) Urinalysis reflex to microscopic and culture Urine (06/23/2024 10:02 PM CDT) Color, ur Yellow Yellow Comment:Testing performed by : [address] [address] Clarity, ur Clear Clear VAL Comment:Testing performed by : [address] [address] Specific gravity, ur 1.014 1.003 - 1.030 VAL Comment:Testing performed by : [facility], [address] [place] [address], [place]., [address] pH, urine 6.0 VAL Comment: Interpretive Data ? Urine pH is affected by diet, medications, systemic acid-base disturbances, and renal tubular function. ??pH may affect urinary stone formation. ??For example, urine pH below 6.0 may help reduce the tendency for calcium phosphate stones and pH greater than 6.0 may reduce the tendency for uric acid stone formation. Source: [facility] [employer] Current Interpretive Data was last revised on 2017 Testing performed by: [facility], [address] [place] [address], [place]., [address] Protein, ur ql Trace(A) Negative VAL Comment:Testing performed by : [address], [place]., [address] Glucose, ur ql Negative Negative VAL Comment:Testing performed by : [address], [place]., [address] Ketones, ur Negative Negative VAL Comment:Testing performed by : [address], [place]., [address] Bilirubin, ur Negative Negative VAL Comment:Testing performed by : [address], [place]., [address] Blood, ur Negative Negative VAL Comment:Testing performed by : [address], [place]., [address] Urobilinogen, ur <2.0 <2.0 mg/dL VAL Comment:Testing performed by : [address] [address] Nitrite, ur Negative Negative VAL Comment:Testing performed by : [address], [place]., [address] Leukocyte esterase, ur 1+(A) Negative VAL Comment:Testing performed by : [address], [place]., [address] UA reflex comment Reflex to microscopic UA will be performed. VAL Comment:Testing performed by : [address], [place]., [address] Urine 06/23/2024 10:0 2 PM CDT 06/23/2024 10:15 PM CDT Ben Leslie MD LAB MICROBIOLOGY - GENERAL ORDERABLES Final Result Performing Organization Address City/[facility]/ZIP Co de Phone Number VAL [address] [address] * Lipase (06/23/2024 10:02 PM CDT) Pathologist [facility] Lipase 28 10 - 99 Units/L Comment:Testing performed by : [address] [address] Blood (Blood, Venous) 06/23/2024 10:02 PM CDT 06/23/2024 10:08 PM CDT Ben Leslie MD LAB BLOOD ORDERABLES Final Result Performing Organization Address [facility] Co de Phone Number VAL [address] [address] * (ABNORMAL) Comprehensive metabolic panel (06/23/2024 10:02 PM CDT) Pathologist [facility] Sodium 139 135 - 145 mmol/L Comment:Testing performed by : [address] [address] Potassium, pl 3.4 3.3 - 4.9 mmol/L VAL Comment:Testing performed by : [address] [address] Chloride 100 97 - 110 mmol/L VAL Comment:Testing performed by : [address] [address] CO2 27 22 - 32 mmol/L VAL Comment:Testing performed by : [address] [address] Anion gap 12 2 - 15 mmol/L VAL Comment:Testing performed by : [address] [address] BUN 9 6 - 25 mg/dL VAL Comment:Testing performed by : [address] [address] Creatinine 1.10 0.80 - 1.30 mg/dL VAL Comment:Testing performed by : [address] [address] Glucose 150 70 - 199 mg/dL [facility] Comment: Interpretive Data Fasting glucose >/= 126 [...] was last revised 2022. Testing performed by: [address] [address] Calcium 9.6 8.5 - 10.3 mg/dL VAL Comment:Testing performed by : [address] [address] Bilirubin, total 1.3(H) 0.1 - 1.2 mg/dL [facility] Comment:Testing performed by : [address] [address] Protein, pl 7.9 6.5 - 8.5 g/dL [facility] Comment:Testing performed by : [address] [address] Albumin 4.4 3.5 - 5.0 g/dL [facility] Comment:Testing performed by : [address] [address] Alk phos 63 40 - 130 Units/L [facility] Comment:Testing performed by : [address] [address] ALT 13 7 - 55 Units/L VAL Comment:Testing performed by : [address] [address] AST 23 10 - 50 Units/L VAL Comment:Testing performed by : [address] [address] Blood 06/23/2024 10:0 2 PM CDT 06/23/2024 10:08 PM CDT us Ben Leslie MD LAB BLOOD ORDERABLES Final Result VAL MULLER [address] [facility] Department [place] [address] * (ABNORMAL) CBC with auto differential (06/23/2024 10:02 PM CDT) WBC 4.8 3.8 - 9.9 K/cumm Comment:Testing performed by : [address] [address] Hgb 10.6(L) 13.0 - 17.5 g/dL VAL Comment:Testing performed by : [address] [address] Hct 36.4(L) 38.9 - 50.3 % VAL Comment:Testing performed by : [address] [address] Plt 193 150 - 400 K/cumm VAL Comment:Testing performed by : [address] [address] MPV 9.0(L) 9.1 - 12.3 fL VAL Comment:Testing performed by : [address] [address] RBC 5.47 4.30 - 5.80 M/cumm VAL Comment:Testing performed by : [address] [address] MCV 66.5(L) 81.3 - 96.4 fL VAL Comment:Testing performed by : [address] [address] MCH 19.4(L) 27.1 - 33.3 pg VAL Comment:Testing performed by : [address] [address] MCHC 29.1(L) 32.3 - 35.7 g/dL VAL Comment:Testing performed by : [address] [address] RDW CV 17.6(H) 11.1 - 14.9 % VAL MULLER Comment:Testing performed by : [address] [address] RDW SD 40.2 35.7 - 48.1 fL VAL MULLER Comment:Testing performed by : [facility], [address] [place] [address]., [address] NRBC abs 0.00 0.00 - 0.01 K/cumm VAL MULLER Comment:Testing performed by : [facility], [address] [place] [address]., [address] Blood (Blood, Venous) 06/23/2024 10:02 PM CDT 06/23/2024 10:08 PM CDT us Ben Leslie MD LAB BLOOD ORDERABLES Final Result Performing Organization Address City/State/[facility] Co de Phone Number VAL MULLER [facility] Department [place] [address] documented in this encounter Visit Diagnoses Diagnosis Diverticulitis- Primary Diverticulitis of colon (without mention of hemorrhage) Essential hypertension Unspecified essential hypertension documented in this encounter Administered Medications Inactive Administered Medications - up to 3 most recent administrations Medication Order MAR Action Action Date Dose Rate Site ciprofloxacin (CIPRO) tablet 500 mg 500 mg, oral, Once, On 06/24/24 at 0245, For 1 dose, Administer ciprofloxacin at least 2 hours before or 6 hours after antacids (containing aluminum or magnesium), calcium or calcium containing foods such as milk or yogurt, MVI (containing iron or zinc), iron, zinc, sucralfate or buffered meds such as didanosine., Indications: Abdominal/Pelvic InfectionIndications:Abdominal/Pel edwige Infection Given 06/24/2024 2:32 AM CDT 500 mg metroNIDAZOLE (FLAGYL) tablet 500 mg 500 mg, oral, Once, On 06/24/24 at 0221, For 1 dose, Indications: Abdominal/Pelvic InfectionIndications:Abdominal/Pel edwige Infection Given 06/24/2024 2:31 AM CDT 500 mg documented in this encounter Discontinued Medications Medication Sig Discontinue Reason Start Date End Da te atenoloL (TENORMIN) 100 mg tabletIndications:Essenti al hypertension Take 1 tablet (100 mg total) by mouth daily for 14 days 09/02/2022 06/24/2024 omeprazole (PriLOSEC) 40 mg capsule Take 1 capsule (40 mg total) by mouth daily 01/18/2024 06/24/2024 atenoloL (TENORMIN) 25 mg tablet Take 1 tablet (25 mg total) by mouth daily for 20 doses 06/24/2024 06/24/2024 documented as of this encounter Active and Recently Administered Medications Times are shown in CDT. Scheduled Medication Order 06/22/2024 06/23/2024 06/24/2024 ciprofloxacin (CIPRO) tablet 500 mg (COMPLETED) 500 mg, oral, Once, On 06/24/24 at 0245, For 1 dose, Administer ciprofloxacin at least 2 hours before or 6 hours after antacids (containing aluminum or magnesium), calcium or calcium containing foods such as milk or yogurt, MVI (containing iron or zinc), iron, zinc, sucralfate or buffered meds such as didanosine., Indications: Abdominal/Pelvic Infection 0232 (Given - Provid er: Varun Gupta RN) HYDROcodone-acetaminophen (NORCO) 5-325 mg per tablet 1 tablet 1 tablet, oral, Once, On 06/24/24 at 0221, For 1 dose, Indications: Pain 0231 (Not Given - Pr ovider: Varun Gupta RN - Reason: Patient/family refused) metroNIDAZOLE (FLAGYL) tablet 500 mg (COMPLETED) 500 mg, oral, Once, On 06/24/24 at 0221, For 1 dose, Indications: Abdominal/Pelvic Infection 0231 (Given - Provid er: Varun Gupta RN) documented in this encounter Orders Medications Ordered That Stevie ht Not Have Been Administered Count Last Ordered Date First Ordered Date HYDROcodone-acetaminophen (N ORCO) 5-325 mg per tablet 1 tablet 1 06/24/2024 Nursing Count Last Ordered Date First Orde red Date MISCELLANEOUS NURSING CARE ORDER (SPECIFY) 1 06/23/2024 IV Count Last Ordered Date First Orde red Date SALINE LOCK IV 1 06/23/2024 documented in this encounter Care Teams Manager Infusion Relationship Specialty Start Date End Date Unknown, Notinfile PCP - General 04/22/24 07/30/24 Miscellaneous, Not In File 11/16/19 documented as of this encounter
--- OUTSIDE RECORDS SUMMARY | 2024-09-10 04:07 | XMS_ITS | Encounter Summary ---
Author Organization [facility] Address [address] [place] [address] Phone Care Team Providers Care Contracting Manager Name Role Phone Miscellaneous, Not In File Unavailable Unava ilable Unknown, Notinfile Primary Care Provider Unavail able Reason for Visit * Reason Onset Date Comments Scheduling Appointments 06/05/2024 New stephen ent appt per inbasket request Encounter Details Date Type Department Care Team (Late st Contact Info) Description 06/05/2024 Telephone [facility] Department of Surgery, Section of Colon and Rectal Surgery [address] [place] [address] 12th Floor, [place] [address] Brigitte Vaca BS Scheduling Appointments (New patient appt per inSmithers Avanza request ) Social History Tobacco Use Types [...] on file 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 Referral in workque/Onbase Deferred 2 days. * Telephone Encounter - Brigitte Vaca BS - 06/05/2024 12:11 PM CDT I attempted a call out, the line did not ring. I will try again later. * Telephone Encounter - Brigitte Vaca BS - 06/05/2024 12:10 PM CDT ----- Message from Chris Bain MD sent at 06/04/2024 10:53 AM CDT ----- Regarding: Follow up Hi, Could we please arrange for the attached patient to see Dr Carlton in clinic? 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 They sent him home with abx but wanted him to be seen by a colorectal surgeon in follow up. Thank you! documented in this encounter Plan of Treatment Scheduled Procedures Name Priority Associated Diagnoses Date/Ti me COLONOSCOPY Open Access Diverticulitis documented as of this encounter Visit Diagnoses Not on filedocumented in this encounter Care Teams Contracting Manager Relationship Specialty Start Date End Date Unknown, Notinfile PCP - General 04/22/24 07/30/24 Miscellaneous, Not In File 11/16/19 documented as of this encounter
--- OUTSIDE RECORDS SUMMARY | 2024-09-10 04:07 | XMS_ITS | Encounter Summary ---
Author Organization [facility] Address [address] [place] [address] Phone Care Team Providers Care Clinic Receptionist Name Role Phone Miscellaneous, Not In File Unavailable Unava ilable Unknown, Notinfile Primary Care Provider Unavail able Reason for Visit * Reason Onset Date Comments Medical Record Checklist 07/20/2024 Encounter Details Date Type Department Care Team (Late st Contact Info) Description 07/20/2024 Telephone [facility] Surgery [address] [place] [address] Medical Office Building [address] [place] [address] Sharon Emanuel Medical Record Checklist Social History Tobacco Use Types Packs/Day Years [...] on file 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 Gender Identity Not on file Sexual Orientation Not on file documented as of this encounter Miscellaneous Notes * Telephone Encounter - Sharon Emanuel - 07/20/2024 7:56 AM CST Medical Records include: Diagnosis: Diverticulitis Referred by: self referral Clinic notes pertaining to diagnosis Yes, Records Bookmarked Colonoscopy Yes 07/01/17 in [facility] Pathology Yes 07/01/17 in epic Radiology Report Yes Transcribed Order Attached Yes ER DEVELOPMENT FACILITATOR documented in this encounter Plan of Treatment Scheduled Procedures Name Priority Associated Diagnoses Date/Ti me COLONOSCOPY Open Access Diverticulitis documented as of this encounter Visit Diagnoses Not on filedocumented in this encounter Care Teams Clinic Receptionist Relationship Specialty Start Date End Date Unknown, Notinfile PCP - General 04/22/24 07/30/24 Miscellaneous, Not In File 11/16/19 documented as of this encounter
--- OUTSIDE RECORDS SUMMARY | 2024-09-10 04:07 | XMS_ITS | Encounter Summary ---
Author Organization [facility] Address [address] [place] [address] Phone Care Team Providers Care Veneer Puller Name Role Phone Miscellaneous, Not In File Unavailable Unava ilable Unknown, Notinfile Primary Care Provider Unavail able Reason for Visit * Reason Onset Date Comments CRS Medical Records Checklist 06/19/2024 Encounter Details Date Type Department Care Team (Late st Contact Info) Description 06/19/2024 Documentation [facility] Department of Surgery, Section of Colon and Rectal Surgery [address] [facility] [address], [place] [address] Halina Winslow B.A. 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 - 06/19/2024 11:36 AM CDT Medical Records include: Diagnosis: Diverticulitis (K57.92) Referred by: REFERRAL, SELF Clinic notes pertaining to diagnosis NO Seen in ED 01/18/2024 Colonoscopy Yes 2017 Pathology Yes Radiology Report Yes Upload images to Power ITDatabase Yes Transcribed Order Attached Yes documented in this encounter Plan of Treatment Scheduled Procedures Name Priority Associated Diagnoses Date/Ti me COLONOSCOPY Open Access Diverticulitis documented as of this encounter Visit Diagnoses Not on filedocumented in this encounter Care Teams Veneer Puller Relationship Specialty Start Date End Date Unknown, Notinfile PCP - General 04/22/24 07/30/24 Miscellaneous, Not In File 11/16/19 documented as of this encounter
--- OUTSIDE RECORDS SUMMARY | 2024-09-10 04:07 | XMS_ITS | Encounter Summary ---
Author Organization [facility] Address [address] [place] [address] Phone Care Team Providers Care Breastfeeding Peer Counselor Name Role Phone Miscellaneous, Not In File Unavailable Unava ilable Unknown, Notinfile Primary Care Provider Unavail able Encounter Details Date Type Department Care Team (Late st Contact Info) Description 06/19/2024 Telephone [facility] Surgery [facility] [address] [place] [address] Bertha Mcgarry RMA Social History Tobacco Use Types Packs/Day [...] on file 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 He expressed frustration numerous times throughout our conversation regarding [facility] and their accents. He identified one member of that team specifically and called her rude and unprofessional. Once redirected, he expressed concern about hisupcoming appointment as he was referred for diverticulitis but he feel he needs to be seen regarding a fistula and follow-up on a mass that was in his sigmoid colon on a previous scope. He referred to the performing doctor as an idiot who didn't know anything. I let him know I would add his reports of his current troubles to the appointment note and asked that he bring any records in hand to his appointment. It sounds like he has a couple of CT discs from outside facilities. He also reported a hemorrhoid popping up on Wednesday and he's never had a hemorrhoid before. He was advised to seek medical care at an ED if he is unable to wait for his appointment. He felt this was giving medical advice, but I let him know that as a safety concern, we like for him to know where he can get help. He asked me my title and about my opinion of [facility]. I let him know that advising on medication is far outside of my scope and legally I cannot answer that question. He pressed again on is it just marketing or does it actually work? I again reiterated that I cannot safely advise. He said that he's never had a hemorrhoid but I should know how it works and I then let him know that I've not utilized it so even outside of medical professional standpoint, I can't be of service. He made a comment about seeking care at another office if our office is going to be rude and I let him know that he always reserves the right to seek care at a facility he is more comfortable at. He does not wish to go that route. Ultimately, I confirmed all of his concerns were addressed and assured him all medical complaints will be evaluated and plans will be discussed in person at his office visit. I also provided landmark directions to assist him in finding the building. He relayed he will seek care if things worsen with his hemorrhoids. documented in this encounter Plan of Treatment Scheduled Procedures Name Priority Associated Diagnoses Date/Ti me COLONOSCOPY Open Access Diverticulitis documented as of this encounter Visit Diagnoses Not on filedocumented in this encounter Care Teams Breastfeeding Peer Counselor Relationship Specialty Start Date End Date Unknown, Notinfile PCP - General 04/22/24 07/30/24 Miscellaneous, Not In File 11/16/19 documented as of this encounter
--- OUTSIDE RECORDS SUMMARY | 2024-09-10 04:08 | XMS_ITS | Encounter Summary ---
Author Organization [facility] Address [address] [place] [address] Care Team Providers Care Payment Specialist Name Role Phone Miscellaneous, Not In File Unavailable Unava ilable Unknown, Notinfile Primary Care Provider Unavail able Encounter Details Date Type Department Care Team (Latest Contact Info) Description 05/14/2021 4:20 PM CDT - 05/14/2021 11:59 PM CDT Hospital Encounter [facility] [address] [place] [address] Bladder pain Discharge Disposition: Discharge to home or self [...] staff should administer the PHQ-9) 2 11/16/2019 Sex and Gender Information Value Date Recorded Sex Assigned at Not on file 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 Gender Identity Not on file Sexual Orientation Not on file documented as of this encounter Medications at Time of Discharge alfuzosin ER (UROXATRAL) 10 mg 24 hr tablet Take 1 tablet (10 mg total) by mouth daily 30 tablet 5 12/02/2020 diphenhydrAMINE (BENADRYL) 25 mg capsule Take 1 [...] mg total) by mouth every 12 hours polyethylene glycol (MIRALAX) 17 gram packet daily TAKE: 1 packet mixed with 8 ounces of fluid, Once a day simethicone (MYLICON) 125 mg chewable tablet 125 mg 4 (four) times a day solifenacin (VESIcare) 10 mg tablet Take 1 tablet (10 mg total) by mouth daily 30 tablet 11 10/18/2020 albuterol HFA (PROVENTIL HFA,VENTOLIN HFA) 90 mcg/actuation inhaler Inhale 2 puffs every 6 hours. 2 ALPRAZolam (XANAX) 2 mg tablet 2 mg Four times daily 06/19/2018 3 atenolol (TENORMIN) 100 mg tabletIndications:E ssential hypertension Take 1 tablet (100 mg total) by mouth daily. 30 tablet 3 03/12/2017 2 ciprofloxacin (CIPRO) 500 mg tablet 12/02/2020 1 cyclobenzaprine (FLEXERIL) 10 mg tablet 10 mg 06/19/2018 4 omeprazole (PriLOSEC) 40 mg capsule Take 1 capsule (40 mg total) by mouth daily 30 capsule 5 10/17/2020 4 ondansetron ODT (ZOFRAN-ODT) 4 mg disintegrating tabletIndications:N ausea Take 1 tablet (4 mg total) by mouth daily 15 tablet 10/26/2020 4 promethazine (PHENERGAN) 25 mg tablet Take 1 tablet (25 mg total) by mouth every 6 (six) hours as needed for nausea or vomiting 10 tablet 05/14/2021 4 documented as of this encounter Discharge Disposition Disposition Code Departure Means Destination Discharge to home or self care documented in this encounter Plan of Treatment Scheduled Procedures Name Priority Associated Diagnoses Date/Ti ia COLONOSCOPY Open Access Diverticulitis documented as of this encounter Procedures Procedure Name Priority Date/Time Associated Diagnosis Comments URINE CULTURE Routine 05/14/2021 4:00 PM CDT Bladder pain documented in this encounter Results * Urine culture Urine, clean voided (05/14/2021 4:00 PM CDT) Report Final Report: Less than 100,000 colonies/mL (clinically insignificant growth based on current clinical standards) VAL MULLER Comment:Testing performed by : [facility], [address] [place]., [address] Organism (CLINICALLY INSIGNIFICANT GROWTH VAL MULLER Urine, clean voided 05/14/2021 4:00 PM CDT 05/14/2021 8:31 PM CDT Narrative VAL MULLER - 05/16/2021 8:12 AM CDT Testing performed by [facility] Microbiology Laboratory ([phone]) [facility] MICROBIOLOGY - GENERAL ORDERABLES Final Result VAL [address] [facility] Department [place] [address] documented in this encounter Visit Diagnoses Diagnosis Bladder pain Other symptoms involving urinary system documented in this encounter Care Teams Payment Specialist Relationship Specialty Start Date End Date Unknown, Notinfile PCP - General 05/08/21 11/26/21 Miscellaneous, Not In File 11/16/19 documented as of this encounter
--- OUTSIDE RECORDS SUMMARY | 2024-09-10 04:08 | XMS_ITS | Encounter Summary ---
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 Gender Identity Not on file Sexual Orientation Not on file documented as of this encounter Miscellaneous Notes * Telephone Encounter - Luna Rockwell - 05/08/2021 11:42 AM CDT Patient called and asked if he can be given a call, he did not say what for documented in this encounter Plan of Treatment Scheduled Procedures Name Priority Associated Diagnoses Date/Ti me COLONOSCOPY Open Access Diverticulitis documented as of this encounter Visit Diagnoses Not on filedocumented in this encounter Care Teams Stage Set Up Worker Relationship Specialty Start Date End Date Unknown, Notinfile PCP - General 05/08/21 11/26/21 Miscellaneous, Not In File 11/16/19 documented as of this encounter
--- OUTSIDE RECORDS SUMMARY | 2024-09-10 04:08 | XMS_ITS | Encounter Summary ---
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 I advised him that I do not feel comfortable prescribing him antibiotics without an appropriate workup. Patientseemed very aggravated and began to say that we were not appropriately treating him. The patient demanded to speak to Dr. Nolen because Dr. Nolen laughed at him . Patient was advised again to head to the ED if he continues to have significant pain and/or to contact his GI/PCP regarding his possible GI symptoms. He began to yell offensive remarks and I told him that the conversation was inappropriate. At this point he said he will be speaking to Dr. Aquino and I agreed that he should reach out to him. He continued to yell and so I excused myself. documented in this encounter Plan of Treatment Scheduled Procedures Name Priority Associated Diagnoses Date/Ti me COLONOSCOPY Open Access Diverticulitis documented as of this encounter Visit Diagnoses Not on filedocumented in this encounter Care Teams Lookback Coordinator Relationship Specialty Start Date End Date Unknown, Notinfile PCP - General 05/08/21 11/26/21 Miscellaneous, Not In File 11/16/19 documented as of this encounter
--- OUTSIDE RECORDS SUMMARY | 2024-09-10 04:08 | XMS_ITS | Encounter Summary ---
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 Pt will call back and ask for m. He is notsure he can make it to [place] for an appointment today. * Telephone Encounter - Brittany Mosley RN - 05/12/2021 8:42 AM CDT Spoke with patient offered appt. At the [facility] location with Debbie WHITEHEAD no openings at [facility] office Instructed patient to go to ED if in urgent pain * Telephone Encounter - Lula Torres CMA - 05/12/2021 8:05 AM CDT Pt called this morning for penile pain, he stated that it has been all weekend but has gotten worse. He said when he urinates it stops mid stream. He stated that he took Azo, Ibuprofen, Tylenol, and a half of a pain pill and they are helping. He said he knows it isnt a STD because he isnt currentlyactive. He stated the car he uses he wont have access to after 915 this morning. documented in this encounter Plan of Treatment Scheduled Procedures Name Priority Associated Diagnoses Date/Ti id COLONOSCOPY Open Access Diverticulitis documented as of this encounter Visit Diagnoses Not on filedocumented in this encounter Care Teams Plate Filler Relationship Specialty Start Date End Date Unknown, Notinfile PCP - General 05/08/21 11/26/21 Miscellaneous, Not In File 11/16/19 documented as of this encounter
--- OUTSIDE RECORDS SUMMARY | 2024-09-10 04:08 | XMS_ITS | Encounter Summary ---
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 He continues to report ongoing symptoms. Again reviewed that the cystoscopy would evaluate the inside of the urethra and bladder. * Telephone Encounter - Lula Torres CMA - 05/15/2021 12:06 PM CDT Pt called today he said he is concerned for tomorrow's cysto because he is allergic to lidocaine. He would like a call back. documented in this encounter Plan of Treatment Scheduled Procedures Name Priority Associated Diagnoses Date/Ti me COLONOSCOPY Open Access Diverticulitis documented as of this encounter Visit Diagnoses Not on filedocumented in this encounter Care Teams Sports Attorney Relationship Specialty Start Date End Date Unknown, Notinfile PCP - General 05/08/21 11/26/21 Miscellaneous, Not In File 11/16/19 documented as of this encounter
--- OUTSIDE RECORDS SUMMARY | 2024-09-10 04:08 | XMS_ITS | Encounter Summary ---
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 * Telephone Encounter - Carlos Gamboa MD - 01/08/2021 8:28 AM CDT Clearly there is no good patient/provider relationship here, and he cannot go around harassing our providers. I recommend a full dismissal from the pracitve * Telephone Encounter - Carlos Gamboa MD - 01/06/2021 7:56 AM CDT Noted. * Telephone Encounter - Tiffany Rodriguez PA - 01/04/2021 8:32 PM CDT Pt called the after hours line on sat at 6pm. The wrong number was provided initially. When I spoke to the patient he was complaining about being fired. He proceeded to discuss all the problems he had with the office. Then he said he needed his atenolol refilled. I reminded him that wedo not fill medications after hours per our policy. He should contact the office on Wednesday, and I will send a message to his pcp. If he is out of his medication then he should go to an ER or urgent ca re. He was not happy with this response. He proceeded to page me, despite my explanation. documented in this encounter Plan of Treatment Scheduled Procedures Name Priority Associated Diagnoses Date/Ti me COLONOSCOPY Open Access Diverticulitis documented as of this encounter Visit Diagnoses Not on filedocumented in this encounter Care Teams Technical Service Engineer Relationship Specialty Start Date End Date Carlos Gamboa MD [address] [place] [address] PCP - General Family Medicine 09/30/20 05/07/21 Miscellaneous, Not In File 11/16/19 documented as of this encounter
--- OUTSIDE RECORDS SUMMARY | 2024-09-10 04:08 | XMS_ITS | Encounter Summary ---
Author Organization [facility] Healthcare Address [address] [place] [id number] Care Team Providers Care Corrections Nurse Name Role Phone Miscellaneous, Not In File Unavailable Unava ilable No, Physician Primary Care Provider [phone] Reason for Visit * Reason Comments Urinary Frequency Pt c/o urinary frequ ency, burning with urination. Has lower abd pain. H/o diverticulits and seen 2 weeks ago and dx with uti. Sx returned. Encounter Details Date Type Department Care Team (Late st Contact Info) Description 09/02/2022 4:43 PM VACUUM FRAME OPERATOR - 09/02/2022 7:22 PM VACUUM FRAME OPERATOR Emergency [facility] Emergency Department [address] [place] [address] [id number] Constipation, unspecified constipation type (Primary Dx); Encounter for medication refill; Essential hypertension Discharge Disposition: Discharge to home [...] on file Legal Sex Male 1:40 AM VACUUM FRAME OPERATOR Gender Identity Not on file Sexual Orientation Not on file documented as of this encounter Last Filed Vital Signs Vital Sign Reading Time Taken Comments Blood Pressure 152/89 09/02/2022 7:22 PM VACUUM FRAME OPERATOR Pulse 62 09/02/2022 7:22 PM VACUUM FRAME OPERATOR Temperature 37.2 ??C (98.9 ??F) 09/02/2022 3:16 PM CS T Respiratory Rate 19 09/02/2022 7:22 PM VACUUM FRAME OPERATOR Oxygen Saturation 97% 09/02/2022 7:22 PM VACUUM FRAME OPERATOR Inhaled Oxygen Concentration - - Weight 130.4 kg (287 lb 7.7 oz) 09/02/2022 3:16 PM VACUUM FRAME OPERATOR Height 185.4 cm (6' 1 ) 09/02/2022 3:16 PM VACUUM FRAME OPERATOR Body Mass Index 37.93 09/02/2022 3:16 PM VACUUM FRAME OPERATOR documented in this encounter Discharge Instructions * Discharge Instructions* Vick Samaniego NP - 09/02/2022 7:16 PM VACUUM FRAME OPERATOR Take these medicine as prescribed, drink plenty of water and stay well hydrated, follow-up with primary care doctor as well as GI specialist for re-evaluation, return to ED immediately for any worsening of symptoms. Follow-up as recommended is mandatory. You have received emergency care only at your visit today. This is not a substitute for ongoing care, further evaluation and treatment and therefore follow-up as directed is not optional but mandatory You MUST follow up for further evaluation of all incidental abnormal radiographic and laboratory findings, Have your physician obtain records from this visit and address all the incidental abnormal findings. This may include final results of lab testing, cultures, final x-ray reports which may not have been available during the time of the visit. Return immediately for any new symptoms, worsening of symptoms, or persistent symptoms UM FRAME OPERATOR documented in this encounter Medications at Time of Discharge albuterol HFA (PROVENTIL HFA,VENTOLIN HFA,PROAIR HFA) 90 mcg/actuation inhaler Inhale 2 puffs every 4 (four) hours as needed for wheezing 1 each 09/02/2022 diphenhydrAMINE (BENADRYL) 25 mg capsule Take 1 [...] 125 mg 4 (four) times a day polyethylene glycol (GoLYTELY) 236-22.74-6.74 -5.86 gram solution Take 4,000 mL by mouth once for 1 dose 4000 mL 09/02/2022 2 ALPRAZolam (XANAX) 2 mg tablet 2 mg Four times daily 06/19/2018 3 atenoloL (TENORMIN) 100 mg tabletIndications:E ssential hypertension Take 1 tablet (100 mg total) by mouth daily for 14 days 30 tablet 09/02/2022 4 cyclobenzaprine (FLEXERIL) 10 mg tablet 10 mg [...] 05/14/2021 4 documented as of this encounter Ordered Prescriptions Prescription Sig Dispense Quantity Refills Last Filled Start Date End Date albuterol HFA (PROVENTIL HFA,VENTOLIN HFA,PROAIR HFA) 90 mcg/actuation inhaler Inhale 2 puffs every 4 (four) hours as needed for wheezing 1 each 09/02/2022 polyethylene glycol (GoLYTELY) 236-22.74-6.74 -5.86 gram solution Take 4,000 mL by mouth once for 1 dose 4000 mL 09/02/2022 2 atenoloL (TENORMIN) 100 mg tabletIndications: Essential hypertension Take 1 tablet (100 mg total) by mouth daily for 14 days 30 tablet 09/02/2022 4 documented in this encounter Discharge Disposition Disposition Code Departure Means Destination Discharge to home or self care documented in this encounter ED Notes * Vick Samaniego NP - 09/02/2022 7:07 PM CST HPI Chief Complaint Patient presents with Urinary Frequency Pt c/o urinary frequency, burning with urination. Has lower abd pain. H/o diverticulits and seen 2 weeks ago and dx with uti. Sx returned. HPI 7:20 PM Carlos Mcgee is a 52 y.o. male presenting to the ED c/o abdominal pain. He states that from last approximately 2 weeks he is having lower abdominal pain, constipation, some blood in his stool, urinary urgency, frequency and dysuria, chills and low-grade fever that is progressively getting worse. He was seen at a local urgent care, he was started on Cipro and Flagyl for possible diverticulitis, he has been taking those medication however history that his symptoms are not getting any better. He denies any vomiting. Denies any chest pain, shortness of breath, dizziness or weakness. Denies any other complaint. Patient History: Past Medical History: Diagnosis Date Anxiety Arthritis Asthma Benzodiazepine dependence (CMS/HCC) (HCC) Colon tumor sigmoid benign Depression Diverticulitis Diverticulosis Hypertension PTSD (post-traumatic stress disorder) Recurrent major depressive disorder (HCC) Type 2 diabetes mellitus (HCC) Past Surgical History: Procedure Laterality Date CHOLECYSTECTOMY CHOLECYSTECTOMY 2000 Family History Problem Relation Age of Onset Bipolar disorder Mother Anxiety disorder Mother Liver disease Mother Heart disease Father Kidney disease Father Hypertension Mother Hyperlipidemia Mother Mental illness Mother Hypertension Father Stroke Father Hyperlipidemia Father Social History Tobacco Use Smoking status: Former Packs/day: 1.00 Years: 5.00 Pack years: 5.00 Types: Cigarettes Start date: 1990 Quit date: 1995 Years since quittin.9 Smokeless tobacco: Never Substance and Sexual Activity Drug use: Never Sexual activity: Not on file Alcohol Use: Not on file No current facility-administered medications for this encounter. Current Outpatient Medications: albuterol HFA (PROVENTIL HFA,VENTOLIN HFA,PROAIR HFA) 90 mcg/actuation inhaler alfuzosin ER (UROXATRAL) 10 mg 24 hr tablet ALPRAZolam (XANAX) 2 mg tablet atenoloL (TENORMIN) 100 mg tablet cyclobenzaprine (FLEXERIL) 10 mg tablet diphenhydrAMINE (BENADRYL) 25 mg capsule fluticasone propionate (FLONASE) 50 mcg/actuation nasal spray hyoscyamine (LEVSIN) 0.125 mg tablet ibuprofen (ADVIL,MOTRIN) 600 mg tablet meclizine (ANTIVERT) 25 mg tablet mirabegron ER (MYRBETRIQ) 25 mg tablet extended release 24 hr omeprazole (PriLOSEC) 40 mg capsule ondansetron ODT (ZOFRAN-ODT) 4 mg disintegrating tablet oxybutynin (DITROPAN) 5 mg tablet polyethylene glycol (GoLYTELY) 236-22.74-6.74 -5.86 gram solution polyethylene glycol (MIRALAX) 17 gram packet promethazine (PHENERGAN) 25 mg tablet simethicone (MYLICON) 125 mg chewable tablet solifenacin (VESIcare) 10 mg tablet Review of Systems Review of Systems Constitutional: Negative for chills and fever. HENT: Negative for ear pain and sore throat. Eyes: Negative for pain and visual disturbance. Respiratory: Negative for cough and shortness of breath. Cardiovascular: Negative for chest pain and palpitations. Gastrointestinal: Positive for anal bleeding, constipation and nausea. Negative for abdominal pain and vomiting. Genitourinary: Negative for dysuria and hematuria. Musculoskeletal: Negative for arthralgias and back pain. Skin: Negative for color change and rash. Neurological: Negative for seizures and syncope. All other systems reviewed and are negative. Physical Exam ED Triage Vitals Temp Pulse Resp BP SpO2 09/02/22 1516 09/02/22 1516 09/02/22 1516 09/02/22 1516 09/02/22 1516 37.2 ??C (98.9 ??F) 66 20 144/90 98 % Temp src Heart Rate Source Patient Position BP Location FiO2 (%) 09/02/22 1516 09/02/22 1821 09/02/22 1821 09/02/22 1821 -- Oral Monitor Sitting Right arm Height Height Method Weight Weight Method 09/02/22 1516 -- 09/02/22 1516 09/02/22 1516 1.854 m (6' 1 ) 130.4 kg (287 lb 7.7 oz) Standing scale Physical Exam Vitals and [...] Mouth/Throat: Mouth: Mucous membranes are moist. Eyes: General: Lids are normal. Vision grossly intact. Extraocular Movements: Extraocular movements intact. Conjunctiva/sclera: Conjunctivae normal. Neck: Trachea: Trachea and [...] quadrant. Musculoskeletal: General: No swelling. Cervical back: Full passive range of motion without pain, normal range of motion and neck supple. Right lower leg: No edema. Left lower leg: No edema. Skin: General: Skin is warm and dry. Capillary Refill: Capillary refill takes less than 2 seconds. Neurological: General: No focal deficit present. Mental Status: He is alert. GCS: GCS eye subscore is 4. GCS verbal subscore is 5. GCS motor subscore is 6. Psychiatric: Attention and Perception: Attention normal. Mood and Affect: Mood normal. Behavior: Behavior is cooperative. Procedures MDM Labs Reviewed URINALYSIS AND REFLEX TO MICROSCOPIC AND CULTURE - Abnormal Result Value Color, ur Tracie Clarity, ur Clear Specific gravity, ur >=1.030 (*) pH, urine 6.0 Protein, ur ql 2+ (*) Glucose, ur ql Negative Ketones, ur Trace Bilirubin, ur 2+ (*) Blood, ur Negative Urobilinogen, ur 1.0 Nitrite, ur Positive (*) Leukocyte esterase, ur Negative UA reflex comment Reflex to microscopic UA will be performed. Narrative: Urine pH is affected by diet, medications, systemic acid-base disturbances, and renal tubular function. pH may affect urinary stone formation. For example, urine pH below 6.0 may help reduce the tendency for calcium phosphate stones and pH greater than 6.0 may reduce the tendency for uric acid stone formation. Source: [place] [employer].Last revised 09-23-2017 COMPREHENSIVE METABOLIC PANEL - Abnormal Sodium 142 Potassium, pl 3.5 Chloride 102 CO2 28 Anion gap 12 BUN 10 Creatinine 0.90 Glucose 107 Calcium 9.4 Bilirubin, total 1.3 (*) Protein, pl 8.2 Albumin 4.6 Alk phos 69 ALT 34 AST 39 CBC WITH AUTO DIFFERENTIAL - Abnormal WBC 5.9 Hgb 13.0 Hct 42.2 Plt 201 MPV 8.9 (*) RBC 5.99 (*) MCV 70.5 (*) MCH 21.7 (*) MCHC 30.8 (*) RDW CV 18.1 (*) RDW SD 42.2 NRBC abs 0.00 URINALYSIS, MICROSCOPIC ONLY - Abnormal WBC, ur 6-10 (*) RBC, ur 6-10 (*) Epithelial cells, squamous, ur 1-5 Mucous, ur Present (*) Hyaline casts, ur >50 (*) Culture Reflex Comment Value: Reflex conditions for urine culture (WBC >10) not met. URINE CULTURE LIPASE Lipase 35 DIFFERENTIAL AUTO Neutrophil abs 3.5 Imm gran abs 0.0 Lymphocyte abs 1.9 Monocyte abs 0.3 Eosinophil abs 0.1 Basophil abs 0.0 Neutrophil pct 58.9 Imm gran pct 0.2 Lymphocyte pct 32.2 Monocyte pct 5.8 Eosinophil pct 2.2 Basophil pct 0.[address] Abdomen Pelvis WO Contrast Final Result BP 147/93 (BP Location: Right arm, Patient Position: Sitting) Pulse 61 Temp 37.2 ??C (98.9 ??F)(Oral) Resp 20 Ht 185.4 cm (6' 1 ) Wt 130.4 kg (287 lb 7.7 oz) SpO2 96% BMI 37.93 kg/m?? ED Course: Disposition: This examination was transcribed using the [employer] voice recognition system without human clearance representative. In an effort to expedite patient care, this report has not been adjusted for typographical, grammatical, and syntax by a trained medical assistant. Clinical Impression: Constipation, unspecified constipation type Encounter for medication refill Essential hypertension Vick Samaniego NP 09/02/221919 Cosigned by Raza Bahena Jr., MD at 09/03/2022 6:59 AM VACUUM FRAME OPERATOR UM FRAME OPERATOR UM FRAME OPERATOR Associated attestation - Raza Bahena Jr., MD - 09/03/2022 6:59 AM VACUUM FRAME OPERATOR ED Attestation Based on the medical record the care appears appropriate. documented in this encounter Plan of Treatment Scheduled Procedures Name Priority Associated Diagnoses Date/Ti me COLONOSCOPY Open Access Diverticulitis documented as of this encounter Procedures Procedure Name Priority Date/Time Associated Diagnosis Comments CT ABDOMEN PELVIS WO CONTRAST ED 09/02/2022 5:31 PM VACUUM FRAME OPERATOR EGFR STAT 09/02/2022 3:46 PM VACUUM FRAME OPERATOR DIFFERENTIAL AUTO STAT 09/02/2022 3:4 6 PM VACUUM FRAME OPERATOR URINALYSIS AND REFLEX TO MICROSCOPIC AND CULTURE STAT 09/02/2022 3:46 PM VACUUM FRAME OPERATOR CBC WITH AUTO DIFFERENTIAL STAT 09/02/2022 3:46 PM VACUUM FRAME OPERATOR URINALYSIS, MICROSCOPIC ONLY STAT 09/02/2022 3:46 PM VACUUM FRAME OPERATOR URINE CULTURE Add-On 09/02/2022 3:46 PM VACUUM FRAME OPERATOR LIPASE STAT 09/02/2022 3:46 PM VACUUM FRAME OPERATOR COMPREHENSIVE METABOLIC PANEL STAT 09/02/2022 3:46 PM VACUUM FRAME OPERATOR documented in this encounter Results * CT Abdomen Pelvis WO Contrast (09/02/2022 5:31 PM VACUUM FRAME OPERATOR) Anatomical Region Laterality Modality Body N/A Computed Tomogra phy 09/02/2022 5:40 PM VACUUM FRAME OPERATOR Narrative 09/02/2022 5:58 PM VACUUM FRAME OPERATOR EXAM DESCRIPTION: ?? CT ABDOMEN PELVIS WO CONTRAST REASON FOR STUDY: ?? LLQ abdominal pain, diverticulitis suspected ?? Urinary Frequency (Pt c/o urinary frequency, burning with urination. Has lower abd pain. H/o diverticulits and seen 2 weeks ago and dx with uti. Sx returned. ?? TECHNIQUE: CT scan of the abdomen and pelvis performed without intravenous and ??without ??oral contrast using helical scanning technique. Reconstructed coronal and sagittal MPR images reviewed. All images stored on PACS. ?? Automated exposure control was used as a dose optimization technique for this examination. COMPARISON: ?? CT abdomen pelvis from 10/07/2020. FINDINGS: The sensitivity for detection of visceral lesions is diminished without the use of intravenous contrast. LOWER CHEST: ?? No significant pulmonary abnormalities. No effusion. LIVER: ?? Normal size. ??No identified cystic or solid masses. GALLBLADDER: ?? Cholecystectomy. BILE DUCTS: ?? No intrahepatic or extrahepatic ductal dilatation. SPLEEN: ?? Normal size. ??No focal lesions. PANCREAS: ?? No identified cystic or solid masses. ??No significant calcifications. No adjacent inflammation or peripancreatic fluid collections. Pancreatic duct not dilated. ADRENALS: ?? Stable left adrenal myelolipoma.. KIDNEYS/URINARY TRACT: ?? Nonobstructing renal stones measuring 2-3 mm bilaterally are unchanged. ??No hydronephrosis or ureteral stone is identified.. ?Urinary bladder is unremarkable. GI: ?? Redemonstrated is circumferential marked bowel wall thickening involving the distal descending colon with marked stool impaction at the descending colonic sigmoid junction. ??There is diffuse soft tissue thickening throughout the proximal sigmoid colon with a masslike appearance. The appearance, however, is unchanged. ??There is no bowel obstruction. ??The remainder of the bowel is normal. ??Normal appendix. PERITONEUM: ?? No ascites or free air. RETROPERITONEUM: ?? No mass or adenopathy. REPRODUCTIVE: ?? No significant abnormality. VASCULATURE: ?? No abdominal aortic aneurysm. MUSCULOSKELETAL: ?? No significant abnormality. OTHER: ?? No other abnormality. IMPRESSION: ?? Stable diffuse circumferential thickening of descending colon with stool impaction with complete obliteration of the bowel lumen of the proximal sigmoid colon due to diffuse circumferential soft tissue thickening. ?? No bowel obstruction however is identified in the appearance is unchanged from 2020. ??Findings could indicate sequela of prior inflammation or circumferential neoplasm although lack of interval change would make this somewhat atypical. ??Correlation with colonoscopy findings, as previously mentioned, is suggested if this has not already been performed. No free air or fluid. Multiple chronic changes including cholecystectomy and nonobstructing renal stones again identified and unchanged. REFERENCE: Unless otherwise specified, no follow-up imaging is recommended for incidental renal and adrenal lesions per consensus recommendations based on imaging criteria. Further lab evaluation could be pursued based on clinical findings. Management of the Incidental Renal Mass on CT: A White Paper of the ACR Incidental Findings Committee. J Am Duane Radiol. 2018 Oct;15(2):264-273. Management of Incidental Adrenal Masses: A White Paper of the ACR Incidental Findings Committee. J Am Duane Radiol. 2017 Apr;14(8):0713-0941. THIS IS AN ELECTRONICALLY VERIFIED FINAL REPORT 09/02/2022 5:58 PM - Electronically signed by ??Valeria Gonzalez M.D. LC: SUZANNE D: ??09/02/2022 5:58 PM T: ??09/02/2022 5:58 PM Report ID: [id number] Reading Location: ??[id number] Procedure Note Tiffany Gonzalez MD - 09/02/2022 EXAM DESCRIPTION: CT ABDOMEN PELVIS WO CONTRAST REASON FOR STUDY: LLQ abdominal pain, diverticulitis suspected Urinary Frequency (Pt c/o urinary frequency, burning with urination. Haslower abd pain. H/o diverticulits and seen 2 weeks ago and dx with uti. Sxreturned. TECHNIQUE: CT scan of the abdomen and pelvis performed without intravenousand without oral contrast using helical scanning technique. Reconstructed coronal and sagittal MPR images reviewed. All images stored on PACS. Automated exposure control was used as a dose optimization technique forthis examination. COMPARISON: CT abdomen pelvis from 10/07/2020. FINDINGS: The sensitivity for detection of visceral lesions is diminished without the use of intravenous contrast. LOWER CHEST: No significant pulmonary abnormalities. No effusion. LIVER: Normal size. No identified cystic or solid masses. GALLBLADDER: Cholecystectomy. BILE DUCTS: No intrahepatic or extrahepatic ductal dilatation. SPLEEN: Normal size. No focal lesions. PANCREAS: No identified cystic or solid masses. No significant calcifications. No adjacent inflammation or peripancreatic fluidcollections. Pancreatic duct not dilated. ADRENALS: Stable left adrenal myelolipoma.. KIDNEYS/URINARY TRACT: Nonobstructing renal stones measuring 2-3 mm bilaterally are unchanged. No hydronephrosis or ureteral stone is identified.. Urinary bladder is unremarkable. GI: Redemonstrated is circumferential marked bowel wall thickeninginvolving the distal descending colon with marked stool impaction at the descending colonic sigmoid junction. There is diffuse soft tissue thickeningthroughout the proximal sigmoid colon with a masslike appearance. The appearance, however, is unchanged. There is no bowel obstruction. The remainder ofthe bowel is normal. Normal appendix. PERITONEUM: No ascites or free air. RETROPERITONEUM: No mass or adenopathy. REPRODUCTIVE: No significant abnormality. VASCULATURE: No abdominal aortic aneurysm. MUSCULOSKELETAL: No significant abnormality. OTHER: No other abnormality. IMPRESSION: Stable diffuse circumferential thickening of descendingcolon with stool impaction with complete obliteration of the bowel lumen of the proximal sigmoid colon due to diffuse circumferential soft tissuethickening. No bowel obstruction however is identified in the appearance is unchangedfrom 2020. Findings could indicate sequela of prior inflammation or circumferential neoplasm although lack of interval change would make this somewhat atypical. Correlation with colonoscopy findings, as previously mentioned, is suggested if this has not already been performed. No free air or fluid. Multiple chronic changes including cholecystectomy and nonobstructingrenal stones again identified and unchanged. REFERENCE: Unless otherwise specified, no follow-up imaging is recommendedfor incidental renal and adrenal lesions per consensus recommendations basedon imaging criteria. Further lab evaluation could be pursued based onclinical findings. Management of the Incidental Renal Mass on CT: A White Paper of the ACR Incidental Findings Committee. J Am Duane Radiol. 2018 Oct;15(2):264-273. Management of Incidental Adrenal Masses: A White Paper of the ACRIncidental Findings Committee. J Am Duane Radiol. 2017 Apr;14(8):1575-8519. THIS IS AN ELECTRONICALLY VERIFIED FINAL REPORT 09/02/2022 5:58 PM - Electronically signed by Valeria Gonzalez M.D. LC: SUZANNE Report ID: [id number] Reading Location: [id number] Vick Samaniego NP IMG CT PROCEDURES Final Result * Urine culture Urine, bladder (09/02/2022 3:46 PM VACUUM FRAME OPERATOR) Report Final Report: No growth VAL MULLER Comment:Testing performed by : [facility], [address] [place] [address] Urine, bladder 09/02/2022 3: 46 PM VACUUM FRAME OPERATOR 09/02/2022 9:54 PM VACUUM FRAME OPERATOR Narrative VAL MULLER - 09/04/2022 7:21 AM VACUUM FRAME OPERATOR Indications for Culture:->Recent positive UA Testing performed by [facility] ([phone]) Vick Samaniego NP LAB MICROBIOLOGY - GENERAL ORDER RIMA Final Result VAL [address] [facility] Department [place] [address] * eGFR (09/02/2022 3:46 PM VACUUM FRAME OPERATOR) eGFR 104 mL/min/1. 73 m2 VAL MULLER Comment: Interpretive Data Reference Interval Normal ?>/= [...] was last reviewed 2021. Testing performed by: [address] [address] Blood 09/02/2022 3:46 PM VACUUM FRAME OPERATOR 09/02/2022 4:08 PM VACUUM FRAME OPERATOR us Vick Samaniego NP LAB BLOOD ORDERABLES Final Resul t VAL MULLER [facility] Department [place] [address] * (ABNORMAL) Urinalysis, microscopic only (09/02/2022 3:46 PM VACUUM FRAME OPERATOR) WBC, ur 6-10(A) 0 - 5 /HPF VAL Comment:Testing performed by : [address] [address] RBC, ur 6-10(A) 0 - 2 /HPF VAL Comment:Testing performed by : [address] [address] Epithelial cells, squamous, ur 1-5 0 - 5 /HPF VAL Comment:Testing performed by : [address] [address] Mucous, ur Present(A) VAL Comment:Testing performed by : [address] [address] Hyaline casts, ur >50(A) 0 - 10 /LPF VAL Comment:Testing performed by : [address] [address] Culture Reflex Comment Reflex conditions for urine culture (WBC >10) not met. VAL Comment:Testing performed by : [address] [address] Urine 09/02/2022 3:46 PM VACUUM FRAME OPERATOR 09/02/2022 4:11 PM VACUUM FRAME OPERATOR us [facility] URINE ORDERABLES Final Resul t VAL [address] [facility] Department [place] [address] * Differential, auto (09/02/2022 3:46 PM VACUUM FRAME OPERATOR) Neutrophil abs 3.5 1.7 - 6.5 K/cumm VAL Comment:Testing performed by : [address] [address] Imm gran abs 0.0 0.0 - 0.1 K/cumm VAL Comment:Testing performed by : [address] [address] Lymphocyte abs 1.9 0.8 - 3.3 K/cumm VAL Comment:Testing performed by : [address] [address] Monocyte abs 0.3 0.2 - 0.8 K/cumm VAL Comment:Testing performed by : [address] [address] Eosinophil abs 0.1 0.0 - 0.5 K/cumm VAL Comment:Testing performed by : [address] [address] Basophil abs 0.0 0.0 - 0.1 K/cumm VAL Comment:Testing performed by : [address] [address] Neutrophil pct 58.9 % [facility] Comment: Interpretive Data Percent cell count reference ranges are not reported, since discordance with absolute values may lead to misinterpretation of CBC data. Current Interpretive Data was last revised on 2017. Testing performed by: [address] [address] Imm gran pct 0.2 % VAL Comment: Interpretive Data Percent cell count reference ranges are not reported, since discordance with absolute values may lead to misinterpretation of CBC data. Current Interpretive Data was last revised on 2017. Testing performed by: [address] [address] Lymphocyte pct 32.2 % [facility] Comment: Interpretive Data Percent cell count reference ranges are not reported, since discordance with absolute values may lead to misinterpretation of CBC data. Current Interpretive Data was last revised on 2017. Testing performed by: [address] [address] Monocyte pct 5.8 % [facility] Comment: Interpretive Data Percent cell count reference ranges are not reported, since discordance with absolute values may lead to misinterpretation of CBC data. Current Interpretive Data was last revised on 2017. Testing performed by: [address] [address] Eosinophil pct 2.2 % VAL Comment: Interpretive Data Percent cell count reference ranges are not reported, since discordance with absolute values may lead to misinterpretation of CBC data. Current Interpretive Data was last revised on 2017. Testing performed by: [address] [address] Basophil pct 0.7 % VAL Comment: Interpretive Data Percent cell count reference ranges are not reported, since discordance with absolute values may lead to misinterpretation of CBC data. Current Interpretive Data was last revised on 2017. Testing performed by: [address] [address] Blood 09/02/2022 3:46 PM VACUUM FRAME OPERATOR 09/02/2022 4:09 PM VACUUM FRAME OPERATOR us Vick Samaniego NP LAB BLOOD ORDERABLES Final Resul t VAL [address] [facility] Department [place] [address] * Lipase (09/02/2022 3:46 PM VACUUM FRAME OPERATOR) Lipase 35 10 - 99 Units/L VAL Comment:Testing performed by : [address] [address] Blood 09/02/2022 3:46 PM VACUUM FRAME OPERATOR 09/02/2022 4:08 PM VACUUM FRAME OPERATOR us Vick Samaniego NP LAB BLOOD ORDERABLES Final Resul t VAL [address] [facility] Department [place] [address] * (ABNORMAL) CBC with auto differential (09/02/2022 3:46 PM VACUUM FRAME OPERATOR) WBC 5.9 3.8 - 9.9 K/cumm VAL Comment:Testing performed by : [address] [address] Hgb 13.0 13.0 - 17.5 g/dL VAL Comment:Testing performed by : [address] [address] Hct 42.2 38.9 - 50.3 % VAL Comment:Testing performed by : [address] [address] Plt 201 150 - 400 K/cumm VAL Comment:Testing performed by : [address] [address] MPV 8.9(L) 9.1 - 12.3 fL VAL Comment:Testing performed by : [address] [address] RBC 5.99(H) 4.30 - 5.80 M/cumm VAL Comment:Testing performed by : [address] [address] MCV 70.5(L) 81.3 - 96.4 fL VAL Comment:Testing performed by : [address] [address] MCH 21.7(L) 27.1 - 33.3 pg VAL Comment:Testing performed by : [address] [address] MCHC 30.8(L) 32.3 - 35.7 g/dL VAL Comment:Testing performed by : [address] [address] RDW CV 18.1(H) 11.1 - 14.9 % VAL Comment:Testing performed by : [address] [address] RDW SD 42.2 35.7 - 48.1 fL VAL MULLER Comment:Testing performed by : [address] [address] NRBC abs 0.00 0.00 - 0.01 K/cumm VAL Comment:Testing performed by : [address] [address] Blood 09/02/2022 3:46 PM VACUUM FRAME OPERATOR 09/02/2022 4:09 PM VACUUM FRAME OPERATOR us Vick Samaniego BUSINESS SPECIALIST LAB BLOOD ORDERABLES Final Resul t VAL [facility]0 [facility] Department of Laboratories [place], [place] [id number] * (ABNORMAL) Urinalysis reflex to microscopic and culture Urine (09/02/2022 3:46 PM VACUUM FRAME OPERATOR) Color, ur Tracie Yellow VAL Comment:Testing performed by : [address] [address] Clarity, ur Clear Clear VAL Comment:Testing performed by : [address] [address] Specific gravity, ur >=1.030(A) 1.003 - 1.030 VAL Comment:Testing performed by : [address] [address] pH, urine 6.0 VAL Comment:Testing performed by : [address] [address] Protein, ur ql 2+(A) Negative VAL Comment:Testing performed by : [address] [address] Glucose, ur ql Negative Negative VAL Comment:Testing performed by : [address] [address] Ketones, ur Trace Negative VAL MULLER Comment:Testing performed by : [facility], [address] [place] [address], [place]., [address] Bilirubin, ur 2+(A) Negative VAL MULLER Comment:Testing performed by : [facility], [address] [place] [address], [place]., [address] Blood, ur Negative Negative VAL MULLER Comment:Testing performed by : [address], [place]., [address] Urobilinogen, ur 1.0 <2.0 mg/dL VAL MULLER Comment:Testing performed by : [address], [place]., [address] Nitrite, ur Positive(A) Negative VAL MULLER Comment:Testing performed by : [address], [place]., [address] Leukocyte esterase, ur Negative Negative VAL MULLER Comment:Testing performed by : [address], [place]., [address] UA reflex comment Reflex to microscopic UA will be performed. VAL MULLER Comment:Testing performed by : [facility], [address] [place] [address], [place]., [address] Urine 09/02/2022 3:46 PM VACUUM FRAME OPERATOR 09/02/2022 4:11 PM VACUUM FRAME OPERATOR Narrative VAL MULLER - 09/02/2022 4:23 PM VACUUM FRAME OPERATOR ?? Urine pH is affected by diet, medications, systemic acid-base disturbances, and renal tubular function. ??pH may affect urinary stone formation. ??For example, urine pH below 6.0 may help reduce the tendency for calcium phosphate stones and pH greater than 6.0 may reduce the tendency for uric acid stone formation. Source: [facility]. Last revised 09-23-2017 us Vick Samaniego NP LAB MICROBIOLOGY - GENERAL ORDER RIMA Final Result VAL MULLER [address] [facility] Department [place] [address] * (ABNORMAL) Comprehensive metabolic panel (09/02/2022 3:46 PM VACUUM FRAME OPERATOR) Sodium 142 135 - 145 mmol/L VAL MULLER Comment:Testing performed by : [address], [place]., [address] Potassium, pl 3.5 3.3 - 4.9 mmol/L VAL Comment:Testing performed by : [address], [place]., [address] Chloride 102 97 - 110 mmol/L VAL Comment:Testing performed by : [address], [place]., [address] CO2 28 22 - 32 mmol/L VAL Comment:Testing performed by : [address], [place]., [address] Anion gap 12 2 - 15 mmol/L VAL Comment:Testing performed by : [address], [place]., [address] BUN 10 8 - 25 mg/dL VAL Comment:Testing performed by : [address], [place]., [address] Creatinine 0.90 0.80 - 1.30 mg/dL VAL Comment:Testing performed by : [address], [place]., [address] Glucose 107 70 - 199 mg/dL VAL Comment: Interpretive [...] classification and Diagnosis of Diabetes Diabetes Care 2017;40 (Suppl. 1):S11. Current interpretive data was last revised 2017. Testing performed by: [address] [address] Calcium 9.4 8.5 - 10.3 mg/dL VAL Comment:Testing performed by : [address], [place]., [address] Bilirubin, total 1.3(H) 0.1 - 1.2 mg/dL VAL Comment:Testing performed by : [address], [place]., [address] Protein, pl 8.2 6.5 - 8.5 g/dL VAL Comment:Testing performed by : [address] [address] Albumin 4.6 3.5 - 5.0 g/dL VAL Comment:Testing performed by : [address] [address] Alk phos 69 40 - 130 Units/L VAL Comment:Testing performed by : [address] [address] ALT 34 7 - 55 Units/L VAL Comment:Testing performed by : [address] [address] AST 39 10 - 50 Units/L VAL Comment:Testing performed by : [address] [address] Blood 09/02/2022 3:46 PM VACUUM FRAME OPERATOR 09/02/2022 4:08 PM VACUUM FRAME OPERATOR us Vick Samaniego NP LAB BLOOD ORDERABLES Final Resul t VAL [facility] Department [place] [address] documented in this encounter Visit Diagnoses Diagnosis Constipation, unspecified constipation type- Primary Encounter for medication refill Essential hypertension Unspecified essential hypertension documented in this encounter Administered Medications Inactive Administered Medications - up to 3 most recent administrations Medication Order MAR Action Action Date Dose Rate Site sodium chloride 0.9% bolus 1,000 mL 1,000 mL, intravenous, at 1,000 mL/hr, Administer over 1 Hours, Once, On Wed09/02/22 at 1642, For 1 dose New Bag 09/02/2022 4:55 PM VACUUM FRAME OPERATOR 1,000 mL 1000 mL/hr documented in this encounter Discontinued Medications Medication Sig Discontinue Reason Start Date End Da te albuterol HFA (PROVENTIL HFA,VENTOLIN HFA) 90 mcg/actuation inhaler Inhale 2 puffs every 6 hours. Reorder 09/02/2022 atenolol (TENORMIN) 100 mg tabletIndications:Essenti al hypertension Take 1 tablet (100 mg total) by mouth daily. Reorder 03/12/2017 09/02/2022 documented as of this encounter Active and Recently Administered Medications Times are shown in VACUUM FRAME OPERATOR. Scheduled Medication Order 08/31/2022 09/01/2022 09/02/2022 sodium chloride 0.9% bolus 1,000 mL (COMPLETED) 1,000 mL, intravenous, at 1,000 mL/hr, Administer over 1 Hours, Once, On Wed09/02/22 at 1642, For 1 dose 1655 (New Bag - Prov ider: Estefanía Gama RN)1755 (Stopped - Provider: Svitlana Kan RN) documented in this encounter Orders Medications Ordered That Stevie ht Not Have Been Administered Count Last Ordered Date First Ordered Date sodium chloride 0.9% bolus 1,000 mL 1 09/02 documented in this encounter Care Teams Corrections Nurse Relationship Specialty Start Date End Date No, Physician PCP - General 11/27/21 01/13/23 Miscellaneous, Not In File 11/16/19 documented as of this encounter
--- OUTSIDE RECORDS SUMMARY | 2024-09-10 04:08 | XMS_ITS | Encounter Summary ---
Author Organization [facility] Healthcare Address [address] [place] [address] Care Team Providers Care Hoe Runner Name Role Phone Miscellaneous, Not In File Unavailable Unava ilable No, Physician Primary Care Provider [phone] Reason for Visit * Reason Comments Mental Health Problem Med Refill Encounter Details Date Type Department Care Team ([facility] st Contact Info) Description 11/25/2022 10:46 AM CDT - 11/25/2022 1:17 PM CDT Emergency [facility] Emergency Department [address] [place] [address] Anxiety (Primary Dx); Xanax use disorder, mild, abuse (HCC); Drug-seeking behavior Discharge Disposition: Left Against Medical Advice Social [...] on file Legal Sex Male 1:40 AM [employer] MAN Gender Identity Not on file Sexual Orientation Not on file documented as of this encounter Last Filed Vital Signs Vital Sign Reading Time Taken Comments Blood Pressure 145/89 11/25/2022 12:30 PM CDT Pulse 57 11/25/2022 1:00 PM CDT Temperature 36.7 ??C (98.1 ??F) 11/25/2022 10:41 AM C DT Respiratory Rate 16 11/25/2022 10:41 AM CDT Oxygen Saturation 95% 11/25/2022 1:00 PM CDT Inhaled Oxygen Concentration - - Weight 118.4 kg (261 lb) 11/25/2022 10:41 AM CDT Height 188 cm (6' 2 ) 11/25/2022 10:41 AM CDT Body Mass Index 33.51 11/25/2022 10:41 AM CDT documented in this encounter Medications [...] up to 12 doses 12 tablet 09/20/2022 diphenhydrAMINE (BENADRYL) 25 mg capsule Take 1 [...] for 10 days 10 tablet 09/20/2022 4 cyclobenzaprine (FLEXERIL) 10 mg tablet 10 [...] Disposition Code Departure Means Destination Comment s Left Against Medical Advice documented in this encounter ED Notes * Mita Chairez PA - 11/25/2022 12:02 PM CDT HPI Chief Complaint Patient presents with Mental Health Problem Med Refill HPI Patient is a 52 y.o. male with a PMHx including Dm type 2, xanax abuse disorder, depression, anxiety presents to the ED c/o being out of his psychiatric medications of xanax TID and lexapro since September 2022 when his psychiatrist fired him. Pt states he has been under increased stress 2/2 the of his mother last week. States the wake is today if he is allowed to attend. States he has increased familial strain with his brother and may not be allowed at the wake. Pt denies SI, HI. Pt stateshe has been out of his xanax for 2 days. Reports mild diaphoresis, itching, nausea. Denies CP, SOB,fever, chills, abd pain, vomiting, diarrhea. Patient History: Patient Active Problem List Diagnosis Date Noted Penile pain 12/02/2020 Urinary frequency 12/02/2020 OAB (overactive bladder) 11/09/2020 Lower abdominal pain 11/09/2020 Stricture of sigmoid colon (CMS/HCC) (HCC) 10/17/2020 Renal calculi 10/17/2020 Irritable bowel syndrome with constipation and diarrhea 10/17/2020 Fistula 10/17/2020 Chronic chest wall pain 10/17/2020 Benzodiazepine abuse ([facility]) 10/17/2020 Xanax use disorder, severe, dependence ([facility]) ([facility]) 11/16/2019 Type 2 diabetes mellitus with other specified complication ([facility]) 11/16/2019 Severe obesity (BMI 35.0-35.9 with comorbidity) ([facility]) ([facility]) 11/16/2019 Benign neoplasm of colon 02/13/2019 Asthma 02/13/2019 Arthritis 02/13/2019 Palpitations 06/27/2018 Other acute recurrent sinusitis 05/10/2018 Moderate episode of recurrent major depressive disorder ([facility]) 03/01/2018 Sleep apnea 03/01/2018 Recurrent major depressive disorder, in partial remission ([facility]) 03/12/2017 Anxiety 03/12/2017 Obesity (BMI 30-39.9) 03/12/2017 Benzodiazepine dependence ([facility]) ([facility]) 03/12/2017 Essential hypertension 03/12/2017 Allergic rhinitis 03/12/2017 Microcytic anemia 07/02/2015 SOB (shortness of breath) 07/02/2015 Type 2 diabetes mellitus without complication ([facility]) ([facility]) 08/28/2014 Paresthesias with subjective weakness 08/28/2014 PTSD (post-traumatic stress disorder) 08/28/2014 Cervical stenosis of spinal canal 08/28/2014 Diverticulitis of colon 09/11/2013 Sedative, hypnotic or anxiolytic abuse, continuous ([facility]) ([facility]) 06/18/2009 Gastroesophageal reflux disease 06/13/2009 Past Medical History: Diagnosis Date Anxiety Arthritis Asthma Benzodiazepine dependence ([facility]) ([facility]) Colon tumor sigmoid benign Depression Diverticulitis Diverticulosis Hypertension PTSD (post-traumatic stress disorder) Recurrent major depressive disorder ([facility]) Type 2 diabetes mellitus ([facility]) Past Surgical History: Procedure Laterality Date [...] date: 1990 Quit date: 1995 Years since quittin.2 Smokeless tobacco: Never Substance and Sexual Activity Alcohol use: Not Currently Drug use: Never Sexual activity: Not on file Social History Social History Narrative Merged History Encounter Patient is . He lives independently. He is employed Review of Systems Review of Systems Constitutional: Positive for diaphoresis. Negative for chills and fever. HENT: Negative for ear pain and sore throat. Eyes: Negative for pain and visual disturbance. Respiratory: Negative for cough and shortness of breath. Cardiovascular: Negative for chest pain and palpitations. Gastrointestinal: Positive for nausea. Negative for abdominal pain, diarrhea and vomiting. Genitourinary: Negative for dysuria and hematuria. Musculoskeletal: Negative for arthralgias and back pain. Skin: Negative for color change and rash. Neurological: Negative for seizures and syncope. Psychiatric/Behavioral: The patient is nervous/anxious. All other systems reviewed and are negative. Physical Exam ED Triage Vitals [11/25/22 1041] Temp Pulse Resp BP SpO2 36.7 ??C (98.1 ??F) 59 16 157/98 100 % Temp src Heart Rate Source Patient Position BP Location FiO2 (%) Oral -- -- -- -- Height Height Method Weight Weight Method 1.88 m (6' 2 ) Stated 118.4 kg (261 lb) -- Physical Exam Vitals and nursing note reviewed. [...] tenderness. Musculoskeletal: General: No swelling. Cervical back: Neck supple. Skin: General: Skin is warm and dry. Capillary Refill: Capillary refill takes less than 2 seconds. Neurological: General: No focal deficit present. Mental Status: He is alert and oriented to person, place, and time. Psychiatric: Mood and Affect: Mood normal. Affect is flat. Behavior: Behavior is agitated. [facility] Medical Decision Making 52 yo M with h/o anxiety, xanax abuse and dependence, h/o drug seeking behavior presents with c/o anxiety and being in need of a med refill for his xanax 2mg tid and lexapro prescriptions since beingfired and having a lawsuit against his old psychiatrist from 09/2022. Pt reports having a different psychiatrist appt 2 days ago but did not go because he was previously seen there and called them all nazis. Pt denies this encounter. When informed pt in order to be evaluated by [facility] he would need to undergo medical testing to ensure safety, he was not inclined to agree unless pt would be guaranteed prescription refills. Advised pt we cannot guarantee that, and the decision would be left to ps ychiatry if they recommended these medications. Pt initially agrees to testing but only if given one dose of 2mg PO xanax. When discussing with [facility], they felt this patient did not meet criteria for [facility] acute psychiatry consultation given he is not SI or HI. They recommended pt be seen at [facility] psych clinic for prescription medication administration and refills. When offered this option to pt, he became agitated stating he called there and they stated they would not refill xanax. Pt not refusing testing. Advised pt again that he could be evaluated by [facility] here, and possibly given new rec for o/p psych that could see him for a refill, and pt decided to leave AMA. Amount and/or Complexity of Data Reviewed ECG/medicine tests: ordered. ED Course as of 11/28/2244 Time: 11/25 1314 Comment: Pt left AMA. By: Mita Chairez PA Final diagnoses: Anxiety Xanax use disorder, mild, abuse (HCC) Drug-seeking behavior Mita Chairez PA 11/25/22 1811 Mita Chairez PA 11/28/22 0944 * Aby Goldberg RN - 11/25/2022 10:38 AM CDT Pt presents to the ED due to im out of my psych meds. Pt states Meds are for PTSD, anxiety with panic attacks. Pt had an appt for Wednesday but was unable to see them and unable to fill prescriptions.Pt states currently in between psychiatrists at this time and needs a referral and medications. Pt has been out of meds for a couple days documented in this encounter Plan of Treatment Scheduled Procedures Name Priority Associated Diagnoses Date/Ti me COLONOSCOPY Open Access Diverticulitis documented as of this encounter Visit Diagnoses Diagnosis Anxiety- Primary Anxiety state, unspecified Xanax use disorder, mild, abuse (HCC) Drug-seeking behavior Other, mixed, or unspecified nondependent drug abuse, unspecified documented in this encounter Administered Medications Inactive Administered Medications - up to 3 most recent administrations Medication Order MAR Action Action Date Dose Rate Site ALPRAZolam (XANAX) tablet 2 mg 2 mg, oral, Once, On Wed11/25/22 at 1203, For 1 dose Given 11/25/2022 12:23 PM CDT 2 mg documented in this encounter Active and Recently Administered Medications Times are shown in CDT. Scheduled Medication Order 11/23/2022 11/24/2022 11/25/2022 ALPRAZolam (XANAX) tablet 2 mg (COMPLETED) 2 mg, oral, Once, On Wed11/25/22 at 1203, For 1 dose 1223 (Given - Provid er: Regina Gillespie RN) documented in this encounter Orders Medications Ordered That Stevie ht Not Have Been Administered Count Last Ordered Date First Ordered Date ALPRAZolam (XANAX) tablet 2 mg 1 11/25/2022 documented in this encounter Care Teams Hoe Runner Relationship Specialty Start Date End Date No, Physician PCP - General 11/27/21 01/13/23 Miscellaneous, Not In File 11/16/19 documented as of this encounter
--- OUTSIDE RECORDS SUMMARY | 2024-09-10 04:08 | XMS_ITS | Encounter Summary ---
Author Organization [facility] Address [address] [place] [address] Phone Care Team Providers Care Research Worker Encyclopedia Name Role Phone Miscellaneous, Not In File Unavailable Unava ilable Unknown, Notinfile Primary Care Provider Unavail able Encounter Details Date Type Department Care Team (Late st Contact Info) Description 06/10/2021 Telephone [facility] Surgery [address] [place] [address] Wily Mansfield [facility] Social History Tobacco Use Types Packs/Day Years [...] on file Legal Sex Male 1:40 AM [employer] Gender Identity Not on file Sexual Orientation Not on file documented as of this encounter Miscellaneous Notes * Telephone Encounter - Yessi Grier - 06/11/2021 9:57 AM CDT He is aware and will be picking up later today. * Telephone Encounter - Suri Lopez PA - 06/11/2021 8:10 AM CDT Please let him know it will be at the front office specialist. Suri Veronica * Telephone Encounter - Wily Mansfield CMA - 06/10/2021 8:46 AM CDT Patient needs copy of office visit note from hillary. He would like to warp picker tomorrow at [place] location documented in this encounter Plan of Treatment Scheduled Procedures Name Priority Associated Diagnoses Date/Ti me COLONOSCOPY Open Access Diverticulitis documented as of this encounter Visit Diagnoses Not on filedocumented in this encounter Care Teams Research Worker Encyclopedia Relationship Specialty Start Date End Date Unknown, Notinfile PCP - General 05/08/21 11/26/21 Miscellaneous, Not In File 11/16/19 documented as of this encounter
--- OUTSIDE RECORDS SUMMARY | 2024-09-10 04:08 | XMS_ITS | Encounter Summary ---
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 Name Role Phone Miscellaneous, Not In File Unavailable Unava ilable No, Physician Primary Care Provider [phone] Reason for Visit * Reason Comments Urinary Frequency Constipation Abdominal Pain Encounter Details Date Type Department Care Team ([facility] st Contact Info) Description 11/10/2022 7:31 PM NURSING ASSOCIATE - 11/10/2022 10:11 PM NURSING ASSOCIATE Emergency [facility] [address] [place] [address] Colonic mass (Primary Dx); Bladder wall thickening Discharge Disposition: Discharge to home or self [...] on file Legal Sex Male 1:40 AM NURSING ASSOCIATE Gender Identity Not on file Sexual Orientation Not on file documented as of this encounter Last Filed Vital Signs Vital Sign Reading Time Taken Comments Blood Pressure 144/88 11/10/2022 10:10 PM NURSING ASSOCIATE Pulse 61 11/10/2022 10:10 PM NURSING ASSOCIATE Temperature 37.2 ??C (98.9 ??F) 11/10/2022 6:15 PM CS T Respiratory Rate 18 11/10/2022 10:1 0 PM NURSING ASSOCIATE Oxygen Saturation 98% 11/10/2022 10: 10 PM NURSING ASSOCIATE Inhaled Oxygen Concentration - - Weight 124.3 kg (274 lb 0.5 oz) 11/10/2022 6:15 PM NURSING ASSOCIATE Height 185.4 cm (6' 1 ) 11/10/2022 6:15 PM NURSING ASSOCIATE Body Mass Index 36.15 11/10/2022 6:15 PM NURSING ASSOCIATE documented in this encounter Discharge Instructions * Discharge Instructions* Vick Samaniego NP - 11/10/2022 10:04 PM NURSING ASSOCIATE You have mass in your colon and bladder, you will need to see GI specialist as well as urologist assoon as possible for further evaluation, your symptoms are due to these mass, stay well hydrated meantime, take this medicine as prescribed, return to ED immediately if he develops fever, chill or for any worsening symptoms. ING ASSOCIATE documented in this encounter Medications at Time [...] mouth 2 (two) times a day for 5 days 10 tablet 11/10/2022 3 polyethylene glycol (GoLYTELY) 236-22.74-6.74 -5.86 gram solution Take 4,000 mL by mouth once for 1 dose 4000 mL 11/10/2022 3 atenoloL (TENORMIN) 100 mg tabletIndications:E ssential [...] mouth once for 1 dose 4000 mL 11/10/2022 11/10/2022 ciprofloxacin (CIPRO) 500 mg tablet Take 1 tablet (500 mg total) by mouth 2 (two) times a day for 5 days 10 tablet 11/10/2022 11/15/2022 documented in this encounter Discharge Disposition Disposition Code Departure Means Destination Comment s Discharge to home or self care documented in this encounter ED Notes * Vick Samaniego VENTURA - 11/10/2022 8:25 PM CST CHIEF COMPLAINT: Chief Complaint Patient presents with Urinary Frequency Constipation Abdominal Pain HPI 10:20 PM Carlos Mcgee is a 52 y.o. male presenting to the ED c/o abdominal pain, UTI like symptoms. He states that from us approximately 2 weeks he is having denies abdominal pain along with nausea, has been constipated. In addition he states that from last approximately 4 days he is having penile pain along with along with dysuria. He has been taking azo for his penile pain. Denies any penile discharge. Denies any fever or chill. Denies any vomiting. Denies any chest pain, shortness of breath, dizziness or weakness. Denies any other complaint. He states that he had this kind of symptom in past, he has been seen by urologist for his penile pain, he is planning on seeing GI specialist rather soon. History provided by patient. PCP: No, Physician [...] Father MEDICATIONS GIVEN IN THE ED Medications sodium chloride 0.9% bolus 1,000 mL (0 mL intravenous Stopped 11/10/222047) CURRENT HOME MEDICATIONS No current facility-administered medications [...] 14 days, Disp: 30 tablet, Rfl: 0 ciprofloxacin (CIPRO) 500 mg tablet, Take 1 tablet (500 mg total) by mouth 2 (two) times a day for 5 days, Disp: 10 tablet, Rfl: 0 citalopram (CeleXA) 40 mg tablet, Take 1 tablet (40 mg total) by mouth every morning for 10 days, Disp: 10 tablet, Rfl: 0 cyclobenzaprine (FLEXERIL) 10 mg tablet, 10 mg, Disp: , Rfl: diphenhydrAMINE (BENADRYL) 25 mg capsule, Take 25 [...] total) by mouth daily, Disp: 30 capsule,Rfl: 5 ondansetron ODT (ZOFRAN-ODT) 4 mg disintegrating tablet, Take 1 tablet (4 mg total) by mouth daily,Disp: 15 tablet, Rfl: 0 oxybutynin (DITROPAN) 5 mg tablet, Take 1 tablet (5 mg total) by mouth 2 (two) times a day, Disp: 60 tablet, Rfl: 5 polyethylene glycol (GoLYTELY) 236-22.74-6.74 -5.86 gram solution, Take 4,000 mL by mouth once for 1 dose, Disp: 4000 mL, Rfl: 0 polyethylene glycol (MIRALAX) 17 gram packet, daily TAKE: 1 packet mixed with 8 ounces of fluid, Once a day, Disp: , Rfl: promethazine (PHENERGAN) 25 mg tablet, Take 1 tablet (25 mg total) by mouth every 6 (six) hours as needed for nausea or vomiting, Disp: 10 tablet, Rfl: 0 simethicone (MYLICON) 125 mg [...] breath Lisinopril Anaphylaxis Losartan Angioedema Swollen lips Sulfasalazine Shortness of breath Sulfur Hives and Shortness of breath Azithromycin Hives and Other [...] date: 1990 Quit date: 1995 Years since quittin.1 Smokeless tobacco: Never Substance and Sexual Activity Drug use: Never Sexual activity: Not on file Alcohol Use: Not on file PHYSICAL EXAM TRIAGE VITAL SIGNS: ED Triage Vitals [11/10/22 1815] Temp Pulse Resp BP SpO2 37.2 ??C (98.9 ??F) 60 20 151/89 97 % Temp src Heart Rate Source Patient Position BP Location FiO2 (%) Oral -- -- -- -- Height Height Method Weight Weight Method 1.854 m (6' 1 ) Stated 124.3 kg (274 lb 0.5 oz) Standing scale Physical Exam Vitals and [...] Nose normal. Mouth/Throat: Mouth: Mucous membranes are dry. Eyes: General: Lids are normal. Vision grossly intact. Extraocular Movements: Extraocular movements intact. Conjunctiva/sclera: Conjunctivae normal. Neck: Trachea: Trachea and phonation normal. Cardiovascular: Rate and Rhythm: Normal rate and regular rhythm. Pulses: Normal pulses. Radial pulses are 2+ on the right side and 2+ on the left side. Heart sounds: No murmur heard. Pulmonary: Effort: Pulmonary effort is normal. No respiratory distress. Breath sounds: Normal breath sounds and air entry. No decreased breath sounds, wheezing, rhonchi orrales. Abdominal: Palpations: Abdomen is soft. Tenderness: There is generalized abdominal tenderness. Musculoskeletal: General: No swelling. Cervical [...] and oriented to person, place, and time. GCS: GCS eye subscore is 4. GCS verbal subscore is 5. GCS motor subscore is 6. Psychiatric: Attention and Perception: Attention normal. Mood and Affect: Mood normal. Behavior: Behavior is cooperative. LABS Labs Reviewed URINALYSIS AND REFLEX TO MICROSCOPIC AND CULTURE - Abnormal Result Value Color, ur Tracie Clarity, ur Clear Specific gravity, ur 1.029 pH, urine 5.0 Protein, ur ql 1+ (*) Glucose, ur ql Negative Ketones, ur Negative Bilirubin, ur Negative Blood, ur Negative Urobilinogen, ur 4.0 (*) Nitrite, ur Positive (*) Leukocyte esterase, ur [...] tendency for uric acid stone formation. Source: [facility].Last revised 09-23-2017 CBC WITH AUTO DIFFERENTIAL - Abnormal WBC 6.4 Hgb 12.3 (*) Hct 39.0 Plt 188 MPV 9.1 RBC 5.61 MCV 69.5 (*) MCH 21.9 (*) MCHC 31.5 (*) RDW CV 16.2 (*) RDW SD 39.5 NRBC abs 0.00 URINALYSIS, MICROSCOPIC ONLY - Abnormal WBC, ur 0-5 RBC, ur 3-5 (*) Epithelial cells, squamous, ur 6-10 (*) Mucous, ur Present (*) Hyaline casts, ur 21-50 (*) Culture Reflex Comment Value: Reflex conditions for urine culture (WBC >10) not met. COMPREHENSIVE METABOLIC PANEL Sodium 143 Potassium, pl 3.6 Chloride 104 CO2 27 Anion gap 12 BUN 13 Creatinine 0.90 Glucose 101 Calcium 9.5 Bilirubin, total 1.2 Protein, pl 7.8 Albumin 4.4 Alk phos 64 ALT 26 AST 31 LIPASE Lipase 35 TROPONIN T HIGH-SENSITIVITY SERIES (BASELINE, 2HR, 4HR, 6HR) Trop T hs 13 DIFFERENTIAL AUTO Neutrophil abs 3.7 Imm gran abs 0.0 Lymphocyte abs 2.0 Monocyte abs 0.4 Eosinophil abs 0.2 Basophil abs 0.0 Neutrophil pct 58.1 Imm gran pct 0.3 Lymphocyte pct 32.1 Monocyte pct 6.5 Eosinophil pct 2.4 Basophil pct 0.6 TROPONIN T HIGH-SENSITIVITY 2-HOUR Trop T hs 13 Trop T hs delta 0 Trop T hs interp Insignificant EGFR eGFR 104 TROPONIN T HIGH-SENSITIVITY 4-HR TROPONIN T HIGH-SENSITIVITY 6-HOUR RADIOLOGY No results found. ED COURSE/MEDICAL DECISION MAKING ED Course as of 11/10/222219 Time: 11/10 2027 Comment: He came in for abdominal pain, constipation, dysuria, penile pain. His abdominal pain started approximately 2 weeks ago and penile pain started approximately 4 days ago. By: Vick Samaniego NP Time: 11/10 2027 Comment: He had these from in past and has been seen by urologist for his penile discomfort. He didnot have any colonoscopy, he states that he is planning to finding a GI specialist can take his insulin and his primary care doctor has been helping for this. By: Vick Samaniego NP Time: 11/10 2028 Comment: On exam he does not appear to be in distress, vitals unremarkable, his UA does have a positive nitrite however there is no leukocyte, there is no leukocyte straight, he has been taking azo Isuspect that this nitrite might be from a so he may not have a UTI. By: Vick Samaniego NP Time: 11/10 2028 Comment: His CBC and CMP is unremarkable. UA also have a significant hyaline cast, this could be related to dehydration so I gave him a L normal saline bolus. By: Vick Samaniego NP Time: 11/10 2028 Comment: Because of his abdominal pain and did CT of his abdomen and pelvis without contrast mainlybecause he is allergic to IV dye along with many other medications. By: Vick Samaniego NP Time: 11/10 2158 Comment: CT of her abdomen and pelvis does show significant mass in his colon, there is no acute finding, this appeared to be chronic in nature. I explained this result to him. He is in the process of finding GI specialist to get the colonoscopy done, I emphasized in great detail that he will need to get the colonoscopy done as soon as possible, also given information of urologist, Dr. Nolen to follow up with for re-evaluation. Meantime he is requesting ciprofloxacin as well as GoLYTELY becausethese medicine has helped him in the past for UTI and constipation. His urine does have a positive nitrite and he is insisting ciprofloxacin I prescribed some ciprofloxacin, also prescribed him GoLYTELY, advised to drink plenty of water, stay well hydrated, advised return to ED immediately for any worsening symptoms. He agrees with this plan. By: Vick Samaniego NP Procedures FINAL IMPRESSION Colonic mass Bladder wall thickening DISPOSITION: Home All findings were discussed with patient. Pt agreeable with plan. Non toxic appearing, vitals stable. Patient stable for discharge home. Given return to ER precautions Close outpatient follow-up with a low threshold to return has been mandated , concerning symptoms have been emphasized in detail, and this patient expresses understanding PATIENT INSTRUCTED TO FOLLOW UP Last Santana MD [address] [id number] In 3 days Lyndsey Grijalva MD [address] [facility] [address] [facility] [id number] Nav Nolen MD [address] [facility], [facility] [address] [facility] [id number] DISCHARGE MEDICATIONS Your medication list START taking these medications Instructions Last Dose Given Next Dose Due ciprofloxacin 500 mg tablet Commonly known as: CIPRO Take 1 tablet (500 mg total) by mouth 2 (two) times a day for 5 days polyethylene glycol 236-22.74-6.74 -5.86 gram solution Commonly known as: GoLYTELY Take 4,000 mL by mouth once for 1 dose ASK your doctor about these medications Instructions [...] by mouth every morning for 10 days cyclobenzaprine 10 mg tablet Commonly known as: FLEXERIL 10 mg diphenhydrAMINE 25 mg capsule Commonly known as: BENADRYL Take 25 mg by mouth 2 (two) times a day fluticasone propionate 50 mcg/actuation nasal spray Commonly known as: FLONASE Administer 2 sprays into each nostril daily hyoscyamine 0.125 mg tablet Doctor's comments: If not covered can you run under a good rx card? Thanks,Priscila Commonly known as: LEVSIN Take 1 tablet [...] tablet (25 mg total) by mouth daily omeprazole 40 mg capsule Commonly known as: PriLOSEC Take 1 capsule (40 mg total) by mouth daily ondansetron ODT 4 mg disintegrating tablet Commonly known as: ZOFRAN-ODT Take 1 tablet (4 mg total) by mouth daily oxybutynin 5 mg tablet Commonly known as: DITROPAN [...] paper prescription for each of these medications ciprofloxacin 500 mg tablet polyethylene glycol 236-22.74-6.74 -5.86 gram solution This examination was transcribed using the [employer] voice recognition system without human sheet cutting operator. In an effort to expedite patient care, this report has not been adjusted for typographical, grammatical, and syntax by a trained clinical medical assistant. Vick Samaniego NP 11/10/222219 Cosigned by Jean Pierre Andrew MD at 11/11/2022 3:40 AM NURSING ASSOCIATE ING ASSOCIATE ING ASSOCIATE Associated attestation - Jean Pierre Andrew MD - 11/11/2022 3:40 AM NURSING ASSOCIATE ED Attestation I did not see this patient. However, I was personally available for consultation in the ED for thispatient if the Advanced Practice Provider (MARY) needed any assistance. The MARY evaluated the patient independently and completed their own examination, documentation, and disposition. * Kellie Grier RN - 11/10/2022 7:40 PM CST Patient brought back to ED room F with multiple complaints. See triage note. No change in patient'scondition since triage completed. Patient asking about CT of his abdomen. Patient was seen here in August for similar complaints. Patient was also seen at [facility] prior to coming to this ED today. Kellie Grier RN 11/10/221954 ING ASSOCIATE * Angelique Ordonez RN - 11/10/2022 6:10 PM CST Pt c/o urinary frequency along with pain since last . Pt states using AZO but still hurting. Pt states also having hard or no stools. Pt using miralax and stool softners which are not working. Pt having abd cramping. Pt states he wanted to get some levsin from PCP but he would not prescribe. Pt feeling SOB, nauseated, having heartburn as well. ING ASSOCIATE documented in this encounter Plan of Treatment Scheduled Procedures Name Priority Associated Diagnoses Date/Ti me COLONOSCOPY Open Access Diverticulitis documented as of this encounter Procedures Procedure Name Priority Date/Time Associated Diagnosis Comments CT ABDOMEN PELVIS WO CONTRAST ED 11/10/2022 8:47 PM NURSING ASSOCIATE TROPONIN T HIGH-SENSITIVITY 2-HOUR Timed 11/10/2022 8:41 PM NURSING ASSOCIATE URINALYSIS AND REFLEX TO MICROSCOPIC AND CULTURE STAT 11/10/2022 6:37 PM NURSING ASSOCIATE URINALYSIS, MICROSCOPIC ONLY STAT 11/10/2022 6:37 PM NURSING ASSOCIATE TROPONIN T HIGH-SENSITIVITY SERIES (BASELINE, 2HR, 4HR, 6HR) STAT 11/10/2022 6:34 PM NURSING ASSOCIATE EGFR STAT 11/10/2022 6:34 PM NURSING ASSOCIATE DIFFERENTIAL AUTO STAT 11/10/2022 6:3 4 PM NURSING ASSOCIATE CBC WITH AUTO DIFFERENTIAL STAT 11/10/2022 6:34 PM NURSING ASSOCIATE LIPASE STAT 11/10/2022 6:34 PM NURSING ASSOCIATE COMPREHENSIVE METABOLIC PANEL STAT 11/10/2022 6:34 PM NURSING ASSOCIATE ECG 12-LEAD STAT 11/10/2022 6:29 PM NURSING ASSOCIATE documented in this encounter Results * CT Abdomen Pelvis WO Contrast (11/10/2022 8:47 PM NURSING ASSOCIATE) Anatomical Region Laterality Modality Body N/A Computed Tomogra phy 11/10/2022 9:12 PM NURSING ASSOCIATE Narrative 11/10/2022 9:28 PM NURSING ASSOCIATE EXAM DESCRIPTION: ?? CT ABDOMEN PELVIS WO CONTRAST REASON FOR STUDY: ?? Abdominal pain, acute, nonlocalized ?? Pt c/o urinary frequency along with pain since last Th. Pt states using AZO but still hurting. Pt states also having hard or no stools. Pt using miralax and stool softners which are not working. Pt having abd cramping. Pt states he wanted to get some ?? levsin from PCP but he would not prescribe. Pt feeling SOB, nauseated, having heartburn as well. pt states he has a mass in his sigmoid colon ?? TECHNIQUE: CT scan of the abdomen and pelvis performed without intravenous and ??without ??oral contrast using helical scanning technique. Reconstructed coronal and sagittal MPR images reviewed. All images stored on PACS. ?? Automated exposure control was used as a dose optimization technique for this examination. COMPARISON: ?? 09/02/2022 , 10/07/2020, 11/11/2018, 06/08/2016 REFERENCE: Per ACR white paper recommendations, unless otherwise specified no follow-up imaging is recommended for incidental renal and adrenal lesions per consensus recommendations based on imaging criteria. Further lab evaluation could be pursued based on clinical findings. FINDINGS: The sensitivity for detection of visceral lesions is diminished without the use of intravenous contrast. LOWER CHEST: ?? Slight subsegmental atelectasis. ??No pleural effusion. ??Imaged portions of the heart are normal. ??Nonenlarged right cardiophrenic angle lymph nodes are unchanged LIVER: ?? Normal size. ??No identified cystic or solid masses. GALLBLADDER: ?? Prior cholecystectomy. BILE DUCTS: ?? No intrahepatic or extrahepatic ductal dilatation. SPLEEN: ?? Unchanged splenomegaly measuring proximally 17 cm in craniocaudal dimension. ??No focal lesions. PANCREAS: ?? No identified cystic or solid masses. ??No significant calcifications. No adjacent inflammation or peripancreatic fluid collections. Pancreatic duct not dilated. ADRENALS: ?? Normal. KIDNEYS/URINARY TRACT: ?? No identified significant cystic or solid masses. ?? Unchanged nonobstructive bilateral renal calculi measuring up approximately 3 mm.. ??No hydronephrosis or hydroureter. ?There is unchanged tethering of the anterosuperior urinary bladder wall towards thickened segment of the sigmoid colon with associated anterosuperior urinary bladder wall thickening (unchanged since 2016). GI: ?? The stomach is normal. ??The small bowel is normal in course and caliber with no evidence of obstruction or inflammation. ??The appendix is normal. ?? Redemonstrated is marked circumferential and nodular thickening of an approximately 7.5 cm segment of the sigmoid colonic wall with associated unchanged pericolonic fat stranding. ??Unchanged long segment circumferential wall thickening of the distal half of the descending colon extending to the thick-walled sigmoid colon. ??Scattered colonic diverticulosis with no definitive CT evidence of acute diverticulitis. ??These findings have not substantially changed since 2016. PERITONEUM: ?? No ascites or free air. ?? No lymphadenopathy. RETROPERITONEUM: ?? No mass or adenopathy. REPRODUCTIVE: ?? No significant abnormality. VASCULATURE: ?? No abdominal aortic aneurysm. MUSCULOSKELETAL: ?? No acute fractures or aggressive osseous lesions. ?? Scattered nonaggressive sclerotic lesions have not substantially changed compared to prior studies. OTHER: ?? Small fat containing bilateral inguinal hernias. IMPRESSION: 1. ??Redemonstration of marked circumferential and nodular thickening of an approximately 7.5 cm segment of the proximal sigmoid colonic wall with associated unchanged pericolonic fat stranding. Unchanged long segment circumferential wall thickening of the distal half of the descending colon extending to the thick-walled sigmoid colon. ??Scattered colonic diverticulosis with no definitive CT evidence of acute diverticulitis. These findings have not substantially changed since 2016 and could be sequela of prior/chronic diverticular disease. ??However, an underlying colonic mass remains a possibility; however, it is considered unusual/atypical given stability since 2016. ??Further characterization with colonoscopy is suggested if not already been performed. 2. ??No interval substantial change in tethering of the anterosuperior urinary bladder wall towards thickened segment of the sigmoid colon with associated anterosuperior urinary bladder wall thickening (unchanged since 2016). ?? Clinical correlation is recommended. THIS IS AN ELECTRONICALLY VERIFIED FINAL REPORT 11/10/2022 9:28 PM - Electronically signed by ??Art Romero M.D. AT: AT D: ??11/10/2022 9:28 PM T: ??11/10/2022 9:28 PM Report ID: [id number] Reading Location: ??[id number] Procedure Note Art Romero MD - 11/10/2022 EXAM DESCRIPTION: CT ABDOMEN PELVIS WO CONTRAST REASON FOR STUDY: Abdominal pain, acute, nonlocalized Pt c/o urinary frequency along with pain since last Thurs. Pt states usingAZO but still hurting. Pt states also having hard or no stools. Pt usingmiralax and stool softners which are not working. Pt having abd cramping. Ptstates he wanted to get some levsin from PCP but he would not prescribe. Ptfeeling SOB, nauseated, having heartburn as well. pt states he has a mass in his sigmoid colon TECHNIQUE: CT scan of the abdomen and pelvis performed without intravenousand without oral contrast using helical scanning technique. Reconstructed coronal and sagittal MPR images reviewed. All images stored on PACS. Automated exposure control was used as a dose optimization technique forthis examination. COMPARISON: 09/02/2022 , 10/07/2020, 11/11/2018, 06/08/2016 REFERENCE: Per ACR white paper recommendations, unless otherwise specifiedno follow-up imaging is recommended for incidental renal and adrenal lesionsper consensus recommendations based on imaging criteria. Further labevaluation could be pursued based on clinical findings. FINDINGS: The sensitivity for detection of visceral lesions is diminished without the use of intravenous contrast. LOWER CHEST: Slight subsegmental atelectasis. No pleural effusion.Imaged portions of the heart are normal. Nonenlarged right cardiophrenic anglelymph nodes are unchanged LIVER: Normal size. No identified cystic or solid masses. GALLBLADDER: Prior cholecystectomy. BILE DUCTS: No intrahepatic or extrahepatic ductal dilatation. SPLEEN: Unchanged splenomegaly measuring proximally 17 cm incraniocaudal dimension. No focal lesions. PANCREAS: No identified cystic or solid masses. No significant calcifications. No adjacent inflammation or peripancreatic fluidcollections. Pancreatic duct not dilated. ADRENALS: Normal. KIDNEYS/URINARY TRACT: No identified significant cystic or solid masses. Unchanged nonobstructive bilateral renal calculi measuring upapproximately 3 mm.. No hydronephrosis or hydroureter. There is unchanged tethering ofthe anterosuperior urinary bladder wall towards thickened segment of thesigmoid colon with associated anterosuperior urinary bladder wall thickening (unchanged since 2016). GI: The stomach is normal. The small bowel is normal in course andcaliber with no evidence of obstruction or inflammation. The appendix is normal. Redemonstrated is marked circumferential and nodular thickening of an approximately 7.5 cm segment of the sigmoid colonic wall with associated unchanged pericolonic fat stranding. Unchanged long segmentcircumferential wall thickening of the distal half of the descending colon extending tothe thick-walled sigmoid colon. Scattered colonic diverticulosis with no definitive CT evidence of acute diverticulitis. These findings have not substantially changed since 2016. PERITONEUM: No ascites or free air. No lymphadenopathy. RETROPERITONEUM: No mass or adenopathy. REPRODUCTIVE: No significant abnormality. VASCULATURE: No abdominal aortic aneurysm. MUSCULOSKELETAL: No acute fractures or aggressive osseous lesions. Scattered nonaggressive sclerotic lesions have not substantially changed compared to prior studies. OTHER: Small fat containing bilateral inguinal hernias. IMPRESSION: 1. Redemonstration of marked circumferential and nodular thickening of an approximately 7.5 cm segment of the proximal sigmoidcolonic wall with associated unchanged pericolonic fat stranding. Unchanged long segment circumferential wall thickening of the distal half of thedescending colon extending to the thick-walled sigmoid colon. Scattered colonic diverticulosis with no definitive CT evidence of acute diverticulitis.These findings have not substantially changed since 2016 and could be sequela of prior/chronic diverticular disease. However, an underlying colonic mass remains a possibility; however, it is considered unusual/atypical given stability since 2016. Further characterization with colonoscopy issuggested if not already been performed. 2. No interval substantial change in tethering of the anterosuperiorurinary bladder wall towards thickened segment of the sigmoid colon withassociated anterosuperior urinary bladder wall thickening (unchanged since 2016). Clinical correlation is recommended. THIS IS AN ELECTRONICALLY VERIFIED FINAL REPORT 11/10/2022 9:28 PM - Electronically signed by Art Romero M.D. AT: AT Report ID: [id number] Reading Location: [id number] Vick Samaniego NP IMG CT PROCEDURES Final Result * Troponin T high-sensitivity 2-hour (11/10/2022 8:41 PM NURSING ASSOCIATE) Trop T hs 13 <=22 ng/L VAL MULLER Comment: Interpretive Data For further hscTnT resources including the diagnostic algorithm and an aid in interpretation, copy and paste this link: https://nrl.testcatalog.org/show/hsTrop Current Interpretive Data last revised 2020. Testing performed by: [address] [address] Trop T hs delta 0 ng/L VAL MULLER Comment:Testing performed by : [address] [address] Trop T hs interp Insignificant VAL MULLER Comment:Testing performed by : [address] [address] Blood 11/10/2022 8:41 PM NURSING ASSOCIATE 11/10/2022 8:47 PM NURSING ASSOCIATE Vick Samaniego LAB BLOOD ORDERABLES Final Resul t Performing Organization Address City/[facility]/ZIP Co de Phone Number VAL MULLER [address] [facility] [place] [address] * (ABNORMAL) Urinalysis, microscopic only (11/10/2022 6:37 PM NURSING ASSOCIATE) WBC, ur 0-5 0 - 5 /HPF VAL Comment:Testing performed by : [address] [address] RBC, ur 3-5(A) 0 - 2 /HPF VAL Comment:Testing performed by : [address] [address] Epithelial cells, squamous, ur 6-10(A) 0 - 5 /HPF VAL Comment:Testing performed by : [address] [address] Mucous, ur Present(A) VAL Comment:Testing performed by : [address] [address] Hyaline casts, ur 21-50(A) 0 - 10 /LPF VAL Comment:Testing performed by : [address] [address] Culture Reflex Comment Reflex conditions for urine culture (WBC >10) not met. VAL Comment:Testing performed by : [address] [address] Urine 11/10/2022 6:37 PM NURSING ASSOCIATE 11/10/2022 6:57 PM NURSING ASSOCIATE Vick Samaniego LAB URINE ORDERABLES Final Resul t Performing Organization Address City/[facility]/ZIP Co de Phone Number VAL MULLER [address] [facility] [place] [address] * (ABNORMAL) Urinalysis reflex to microscopic and culture Urine (11/10/2022 6:37 PM NURSING ASSOCIATE) Color, ur Tracie Yellow VAL Comment:Testing performed by : [address] [address] Clarity, ur Clear Clear VAL Comment:Testing performed by : [address], [place]., [address] Specific gravity, ur 1.029 1.003 - 1.030 VAL Comment:Testing performed by : [address], [place]., [address] pH, urine 5.0 VAL Comment:Testing performed by : [address] [address] Protein, ur ql 1+(A) Negative VAL Comment:Testing performed by : [address], [place]., [address] Glucose, ur ql Negative Negative VAL Comment:Testing performed by : [address], [place]., [address] Ketones, ur Negative Negative VAL Comment:Testing performed by : [address] [address] Bilirubin, ur Negative Negative VAL Comment:Testing performed by : [address], [place]., [address] Blood, ur Negative Negative VAL Comment:Testing performed by : [address] [address] Urobilinogen, ur 4.0(A) <2.0 mg/dL VAL Comment:Testing performed by : [address] [address] Nitrite, ur Positive(A) Negative VAL Comment:Testing performed by : [address] [address] Leukocyte esterase, ur Negative Negative VAL Comment:Testing performed by : [address] [address] UA reflex comment Reflex to microscopic UA will be performed. VLA Comment:Testing performed by : [address] [address] Urine 11/10/2022 6:37 PM NURSING ASSOCIATE 11/10/2022 6:57 PM NURSING ASSOCIATE Narrative VAL - 11/10/2022 7:02 PM NURSING ASSOCIATE ?? Urine pH is affected by diet, medications, systemic acid-base disturbances, and renal tubular function. ??pH may affect urinary stone formation. ??For example, urine pH below 6.0 may help reduce the tendency for calcium phosphate stones and pH greater than 6.0 may reduce the tendency for uric acid stone formation. Source: [facility]. Last revised 09-23-2017 us Vick Samaniego NP LAB MICROBIOLOGY - GENERAL ORDER RIMA Final Result VAL [address] [facility] Department [place] [address] * eGFR (11/10/2022 6:34 PM NURSING ASSOCIATE) eGFR 104 mL/min/1. 73 m2 VAL MULLER [...] was last reviewed 2021. Testing performed by: [facility], [address] [place] [address]., [address] Blood 11/10/2022 6:34 PM NURSING ASSOCIATE 11/10/2022 6:36 PM NURSING ASSOCIATE us Vick Samaniego NP LAB BLOOD ORDERABLES Final Resul t VAL [address] [facility] Department [place] [address] * Differential, auto (11/10/2022 6:34 PM NURSING ASSOCIATE) Neutrophil abs 3.7 1.7 - 6.5 K/cumm VAL Comment:Testing performed by : [address] [address] Imm gran abs 0.0 0.0 - 0.1 K/cumm VAL Comment:Testing performed by : [address] [address] Lymphocyte abs 2.0 0.8 - 3.3 K/cumm VAL Comment:Testing performed by : [address] [address] Monocyte abs 0.4 0.2 - 0.8 K/cumm VAL Comment:Testing performed by : [address] [address] Eosinophil abs 0.2 0.0 - 0.5 K/cumm VAL Comment:Testing performed by : [address] [address] Basophil abs 0.0 0.0 - 0.1 K/cumm VAL Comment:Testing performed by : [address] [address] Neutrophil pct 58.1 % [facility] MARYVALEMARQUEZ Comment: Interpretive Data Percent cell count reference ranges are not reported, since discordance with absolute values may lead to misinterpretation of CBC data. Current Interpretive Data was last revised on 2017. Testing performed by: [address] [address] Imm gran pct 0.3 % VAL Comment: Interpretive Data Percent cell count reference ranges are not reported, since discordance with absolute values may lead to misinterpretation of CBC data. Current Interpretive Data was last revised on 2017. Testing performed by: [address] [address] Lymphocyte pct 32.1 % VAL Comment: Interpretive Data Percent cell count reference ranges are not reported, since discordance with absolute values may lead to misinterpretation of CBC data. Current Interpretive Data was last revised on 2017. Testing performed by: [address] [address] Monocyte pct 6.5 % VAL Comment: Interpretive Data Percent cell count reference ranges are not reported, since discordance with absolute values may lead to misinterpretation of CBC data. Current Interpretive Data was last revised on 2017. Testing performed by: [address] [address] Eosinophil pct 2.4 % VAL Comment: Interpretive Data Percent cell count reference ranges are not reported, since discordance with absolute values may lead to misinterpretation of CBC data. Current Interpretive Data was last revised on 2017. Testing performed by: [address] [address] Basophil pct 0.6 % VAL Comment: Interpretive Data Percent cell count reference ranges are not reported, since discordance with absolute values may lead to misinterpretation of CBC data. Current Interpretive Data was last revised on 2017. Testing performed by: [address] [address] Blood 11/10/2022 6:34 PM NURSING ASSOCIATE 11/10/2022 6:37 PM NURSING ASSOCIATE us Vick Samaniego NP LAB BLOOD ORDERABLES Final Resul t VAL MULLER [address] [facility] Department [place] [address] * Troponin T high-sensitivity series (baseline, 2hr, 4hr, 6hr) (11/10/2022 6:34 PM NURSING ASSOCIATE) Trop T hs 13 <=22 ng/L VAL MULLER Comment: Interpretive Data For further hscTnT resources including the diagnostic algorithm and an aid in interpretation, copy and paste this link: https://nrl.testcatalog.org/show/hsTrop Current Interpretive Data last revised 2020. Testing performed by: [address] [address] Blood 11/10/2022 6:34 PM NURSING ASSOCIATE 11/10/2022 6:36 PM NURSING ASSOCIATE [facility] LAB BLOOD ORDERABLES Final Resul t Performing Organization Address [facility] Co de Phone Number [address] [place] [address] * Lipase (11/10/2022 6:34 PM NURSING ASSOCIATE) Pathologist [facility] Lipase 35 10 - 99 Units/L VAL Comment:Testing performed by : [address] [address] Blood (Blood, Venous) 11/10/2022 6:34 PM NURSING ASSOCIATE 11/10/2022 6:36 PM NURSING ASSOCIATE [facility] BLOOD ORDERABLES Final Resul t Performing Organization Address [facility] de Phone Number [address] [address] * Comprehensive metabolic panel (11/10/2022 6:34 PM NURSING ASSOCIATE) Pathologist [facility] Sodium 143 135 - 145 mmol/L VAL Comment:Testing performed by : [address] [address] Potassium, pl 3.6 3.3 - 4.9 mmol/L VAL Comment:Testing performed by : [address] [address] Chloride 104 97 - 110 mmol/L VAL Comment:Testing performed by : [address] [address] CO2 27 22 - 32 mmol/L VAL Comment:Testing performed by : [address] [address] Anion gap 12 2 - 15 mmol/L VAL Comment:Testing performed by : [address] [address] BUN 13 8 - 25 mg/dL VAL Comment:Testing performed by : [address], [place]., [address] Creatinine 0.90 0.80 - 1.30 mg/dL VAL Comment:Testing performed by : [address] [address] Glucose 101 70 - 199 mg/dL [facility] Comment: Interpretive Data Fasting glucose >/= [...] was last revised 2022. Testing performed by: [address] [address] Calcium 9.5 8.5 - 10.3 mg/dL VAL Comment:Testing performed by : [address] [address] Bilirubin, total 1.2 0.1 - 1.2 mg/dL VAL Comment:Testing performed by : [address] [address] Protein, pl 7.8 6.5 - 8.5 g/dL VAL Comment:Testing performed by : [address] [address] Albumin 4.4 3.5 - 5.0 g/dL VAL Comment:Testing performed by : [address] [address] Alk phos 64 40 - 130 Units/L VAL Comment:Testing performed by : [address] [address] ALT 26 7 - 55 Units/L VAL MULLER Comment:Testing performed by : [address] [address] AST 31 10 - 50 Units/L VAL Comment:Testing performed by : [address] [address] Blood 11/10/2022 6:34 PM NURSING ASSOCIATE 11/10/2022 6:36 PM NURSING ASSOCIATE us Vick Samaniego CIRCULAR GANG SAW OPERATOR LAB BLOOD ORDERABLES Final Resul t [facility] MARYVALEMARQUEZ [address] [facility] Department [place] [address] * (ABNORMAL) CBC with auto differential (11/10/2022 6:34 PM NURSING ASSOCIATE) WBC 6.4 3.8 - 9.9 K/cumm VAL MULLER Comment:Testing performed by : [address] [address] Hgb 12.3(L) 13.0 - 17.5 g/dL VAL Comment:Testing performed by : [address] [address] Hct 39.0 38.9 - 50.3 % VAL Comment:Testing performed by : [address] [address] Plt 188 150 - 400 K/cumm VAL Comment:Testing performed by : [address] [address] MPV 9.1 9.1 - 12.3 fL VAL Comment:Testing performed by : [address] [address] RBC 5.61 4.30 - 5.80 M/cumm VAL MULLER Comment:Testing performed by : [address] [address] MCV 69.5(L) 81.3 - 96.4 fL VAL Comment:Testing performed by : [address] [address] MCH 21.9(L) 27.1 - 33.3 pg VAL MULLER Comment:Testing performed by : [facility], [address] [place] [address]., [address] MCHC 31.5(L) 32.3 - 35.7 g/dL VAL MULLER Comment:Testing performed by : [address] [address] RDW CV 16.2(H) 11.1 - 14.9 % VAL MULLER Comment:Testing performed by : [address] [address] RDW SD 39.5 35.7 - 48.1 fL VAL MULLER Comment:Testing performed by : [address] [address] NRBC abs 0.00 0.00 - 0.01 K/cumm VAL MULLER Comment:Testing performed by : [address], [address] Blood (Blood, Venous) 11/10/2022 6:34 PM NURSING ASSOCIATE 11/10/2022 6:37 PM NURSING ASSOCIATE us Vick Samaniego NP LAB BLOOD ORDERABLES Final Resul t VAL MULLER [address] [facility] Department of Laboratories [place], [place] [id number] * ECG 12 lead (11/10/2022 6:29 PM NURSING ASSOCIATE) Ventricular Rate EKG/Min 61 BPM [facility] Atrial Rate 61 BPM [facility] OK-Interval (MSEC) 160 ms [facility] QRS-Interval (MSEC) 94 ms [facility] QT-Interval (MSEC) 410 ms [facility] QTc 412 ms [facility] P Reading 5 degrees [facility] R Reading 31 degrees [facility] T Reading -14 degrees [facility] Diagnosis Normal sinus rhythm Nonspecific T wave abnormality Abnormal ECG When compared with ECG of 07-OCT-2020 19:20, Nonspecific T wave abnormality now evident in Lateral leads [facility] 11/10/2022 6:29 PM NURSING ASSOCIATE 11/10/2022 7:21 PM NURSING ASSOCIATE us Vick Samaniego CIRCULAR GANG SAW OPERATOR ECG ORDERABLES Final Result [facility] documented in this encounter Visit Diagnoses Diagnosis Colonic mass- Primary Bladder wall thickening Other specified disorder of bladder documented in this encounter Administered Medications Inactive Administered Medications - up to 3 most recent administrations Medication Order MAR Action Action Date Dose Rate Site sodium chloride 0.9% bolus 1,000 mL 1,000 mL, intravenous, at 1,000 mL/hr, Administer over 1 Hours, Once, On Wed11/10/22 at 1919, For 1 dose New Bag 11/10/2022 7:38 PM NURSING ASSOCIATE 1,000 mL 100 0 mL/hr documented in this encounter Active and Recently Administered Medications Times are shown in NURSING ASSOCIATE. Scheduled Medication Order 11/08/2022 11/09/2022 11/10/2022 sodium chloride 0.9% bolus 1,000 mL (COMPLETED) 1,000 mL, intravenous, at 1,000 mL/hr, Administer over 1 Hours, Once, On Wed11/10/22 at 1919, For 1 dose 1937 (New Bag - Prov ider: Kellie Grier, DOMITILA)2047 (Stopped - Provider: Silvina Becerril RN) documented in this encounter Orders Medications Ordered That Stevie ht Not Have Been Administered Count Last Ordered Date First Ordered Date sodium chloride 0.9% bolus 1,000 mL 1 11/10 Nursing Count Last Ordered Date First Orde red Date MISCELLANEOUS NURSING CARE ORDER (SPECIFY) 11/10/2022 IV Count Last Ordered Date First Orde red Date SALINE LOCK IV 1 11/10/2022 documented in this encounter Care Teams Furnace Process Plant Operator Relationship Specialty Start Date End Date No, Physician PCP - General 11/27/21 01/13/23 Miscellaneous, Not In File 11/16/19 documented as of this encounter
--- OUTSIDE RECORDS SUMMARY | 2024-09-10 04:08 | XMS_ITS | Encounter Summary ---
Author Organization [facility] Address [address] [place] [address] Phone Care Team Providers Care Arborist Name Role Phone Miscellaneous, Not In File Unavailable Unava ilable Unknown, Notinfile Primary Care Provider Unavail able Encounter Details Date Type Department Care Team (Late st Contact Info) Description 10/13/2023 Telephone [facility] Surgery [address] [facility] [address] [place] [address] Kia Luther RMA Social History Tobacco Use Types Packs/Day [...] on file 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 He was advised to present to ER if he does not feel well. Reports having chills. Ming AVELAR IRATORY CARE PRACTITIONER documented in this encounter Plan of Treatment Scheduled Procedures Name Priority Associated Diagnoses Date/Ti me COLONOSCOPY Open Access Diverticulitis documented as of this encounter Visit Diagnoses Not on filedocumented in this encounter Care Teams Arborist Relationship Specialty Start Date End Date Unknown, Notinfile PCP - General 01/14/23 01/17/24 Miscellaneous, Not In File 11/16/19 documented as of this encounter
--- OUTSIDE RECORDS SUMMARY | 2024-09-10 04:08 | XMS_ITS | Encounter Summary ---
Author Organization [facility] Address [address] [place] [address] Phone Care Team Providers Care Studio Operation Engineer Name Role Phone Miscellaneous, Not In File Unavailable Unava ilable Unknown, Notinfile Primary Care Provider Unavail able Reason for Visit * Reason Comments Follow-up * Consultation (Routine) - Closed Specialty Diagnoses / Procedures Referred By Contbisi t Referred To Contact Urology Diagnoses Follow up Carlos Gamboa MD [address] [place] [address] Phone: tel: fax: [facility] (All Locations) Referral ID Status Reason Start Date Expiration Date V isits Requested Visits Authorized [id number] Closed Specialty Services Required 11/11/2020 12/11/2021 99 99 Encounter Details Date Type Department Care Team (Late st Contact Info) Description 05/14/2021 2:40 PM CDT Office Visit [facility] Surgery [address] [place] [address] [address] [place] [address] Suri Lopez PA [address] [place] [address] [place] [phone] Bladder pain (Primary Dx); Dysuria; Penile pain Social History Tobacco Use Types Packs/Day [...] on file 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 male. Chief Complaint Follow-up Mr. Mcgee presents for bladder pain. He reports 05/05 he started having dysuria. He reports he started having chills Wednesday. He reports Wednesday symptoms resolved but then returned on . He continues to have abdominal pain, bladder pain, penile pain, dysuria, fatigue, chills, nausea, and diarrhea. He denies gross hematuria. Review of Systems Constitutional: Positive for chills and fatigue. Gastrointestinal: Positive for diarrhea and nausea. Genitourinary: Positive for dysuria and penile pain. Physical Exam Constitutional: Appearance: Normal appearance. Eyes: Conjunctiva/sclera: Conjunctivae normal. Pulmonary: Effort: Pulmonary effort is normal. Musculoskeletal: General: Normal range of motion. Neurological: Mental Status: He is alert and oriented to person, place, and time. Psychiatric: Mood and Affect: Mood normal. Behavior: Behavior normal. Assessment/Plan Mr. Mcgee is a 51 yo male with bladder pain, penile pain, dysuria, nausea, fatigue, abdominal pain - Will send urine for culture - Will have him scheduled for a renal ultrasound - Keep scheduled appointment for cystoscopy - He reports he recently fired his GI and recommend he establish with another GI provider as he continues to have ongoing GI symptoms Diagnoses and all orders for this visit: Bladder pain (R39.89) (Primary) - Ambulatory referral to Urology - Urine culture Urine, clean voided; Future - POCT urinalysis dipstick Dysuria (R30.0) Penile pain (N48.89) documented in this encounter Plan of Treatment Scheduled Procedures Name Priority Associated Diagnoses Date/Ti me COLONOSCOPY Open Access Diverticulitis documented as of this encounter Procedures Procedure Name Priority Date/Time Associated Diagnosis Comments POCT URINALYSIS DIPSTICK Routine 05/14/2021 4:00 PM CDT Bladder pain documented in this encounter Results * (ABNORMAL) POCT urinalysis dipstick (05/14/2021 4:00 PM CDT) Glucose, ur, POC Negative Negative mg/dL Ketones, ur, POC Negative Negative Blood, ur, POC Negative Negative pH, ur, POC 5.0 5.0 - 8.0 Protein, ur, POC Trace(A) Negative Nitrite, ur, POC Negative Negative Leukocytes, ur, POC Negative Negative Lot Number x Urine 05/14/2021 4:00 PM CDT Suri COLLIER POINT OF CARE TEST ORDERABL ES Final Result * Urine culture Urine, clean voided (05/14/2021 4:00 PM CDT) Report Final Report: Less than 100,000 colonies/mL (clinically insignificant growth based on current clinical standards) VAL MULLER Comment:Testing performed by : [facility], [address] [place] [address], [place]., [address] Organism (CLINICALLY INSIGNIFICANT GROWTH VAL MULLER Urine, clean voided 05/14/2021 4:00 PM CDT 05/14/2021 8:31 PM CDT Narrative VAL MULLER - 05/16/2021 8:12 AM CDT Testing performed by [facility] Microbiology Laboratory ([phone]) Suri COLLIER LAB MICROBIOLOGY - GENERAL ORDERABLES Final Result VAL MULLER [address] [facility] [place] [address] documented in this encounter Visit Diagnoses Diagnosis Bladder pain- Primary Other symptoms involving urinary system Dysuria Penile pain Unspecified disorder of penis Bladder pain Other symptoms involving urinary system documented in this encounter Orders Outpatient Referral Count Last Ordered Date Fir st Ordered Date AMB REFERRAL TO UROLOGY 1 05/14/2021 documented in this encounter Care Teams Studio Operation Engineer Relationship Specialty Start Date End Date Unknown, Notinfile PCP - General 05/08/21 11/26/21 Miscellaneous, Not In File 11/16/19 documented as of this encounter
--- OUTSIDE RECORDS SUMMARY | 2024-09-10 04:08 | XMS_ITS | Encounter Summary ---
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 He is not happy about going to do a UC, probably won't go. Just wants meds sent. Also stated he hasn't use [facility] in forever and we should know that, so I updated his pharmacy to [facility] in [place] for future reference, if need be. Y WORKER documented in this encounter Plan of Treatment Scheduled Procedures Name Priority Associated Diagnoses Date/Ti me COLONOSCOPY Open Access Diverticulitis documented as of this encounter Visit Diagnoses Not on filedocumented in this encounter Care Teams Network Support Specialist Relationship Specialty Start Date End Date Unknown, Notinfile PCP - General 05/08/21 11/26/21 Miscellaneous, Not In File 11/16/19 documented as of this encounter
--- OUTSIDE RECORDS SUMMARY | 2024-09-10 04:08 | XMS_ITS | Encounter Summary ---
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 Nolen had told patient I just told him again. Patient sounded very discouraged regarding his symptoms and his life in general.i just tried to reassure him that things would work out and that he should def call his GI or PCP to get help with his pain as it is not related to urology. Patient did mention his prostateand now has decided that it could be that. I advised patient that it is more than likely not prostatitis but he insisted he would call back Joelle and discuss this. * Telephone Encounter - Tara Mott RMA - 05/16/2021 2:02 PM CDT Pt would like a call about the cysto he just had. documented in this encounter Plan of Treatment Scheduled Procedures Name Priority Associated Diagnoses Date/Ti me COLONOSCOPY Open Access Diverticulitis documented as of this encounter Visit Diagnoses Not on filedocumented in this encounter Care Teams Chemist Assistant Relationship Specialty Start Date End Date Unknown, Notinfile PCP - General 05/08/21 11/26/21 Miscellaneous, Not In File 11/16/19 documented as of this encounter
--- OUTSIDE RECORDS SUMMARY | 2024-09-10 04:08 | XMS_ITS | Encounter Summary ---
Author Organization [facility] Address [address] [place] [address] Phone Care Team Providers Care Ceramic Saw Tender Name Role Phone Miscellaneous, Not In File Unavailable Unava ilable Unknown, Notinfile Primary Care Provider Unavail able Encounter Details Date Type Department Care Team (Late st Contact Info) Description 05/16/2021 Telephone [facility] Surgery [address] [place] [address] Tracie Parish, 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 ----- Message from AMIRA Ny sent at 05/14/2021 4:30 PM CDT ----- Regarding: Please schedule Please schedule Mr. Mcgee for a kidney ultrasound. Order is in. Suri Veronica documented in this encounter Plan of Treatment Scheduled Procedures Name Priority Associated Diagnoses Date/Ti me COLONOSCOPY Open Access Diverticulitis documented as of this encounter Visit Diagnoses Not on filedocumented in this encounter Care Teams Ceramic Saw Tender Relationship Specialty Start Date End Date Unknown, Notinfile PCP - General 05/08/21 11/26/21 Miscellaneous, Not In File 11/16/19 documented as of this encounter
--- OUTSIDE RECORDS SUMMARY | 2024-09-10 04:08 | XMS_ITS | Encounter Summary ---
Author Organization [facility] Address [address] [place] [address] Care Team Providers Care Clinical Data Analyst Name Role Phone Miscellaneous, Not In File Unavailable Unava ilable No, Physician Primary Care Provider [phone] Reason for Visit * Reason Comments Nausea Encounter Details Date Type Department Care Team (Late st Contact Info) Description 11/29/2022 9:23 PM CDT - 11/29/2022 10:06 PM CDT [facility] [place], [place] [id number] Medication refill (Primary Dx) Discharge Disposition: Left Against Medical Advice Social [...] on file 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 Gender Identity Not on file Sexual Orientation Not on file documented as of this encounter Last Filed Vital Signs Vital Sign Reading Time Taken Comments Blood Pressure 159/86 11/29/2022 9:41 PM CDT Pulse 64 11/29/2022 9:41 PM CDT Temperature 37.3 ??C (99.2 ??F) 11/29/2022 9:41 PM CD T Respiratory Rate 16 11/29/2022 9:41 PM CDT Oxygen Saturation 98% 11/29/2022 9:41 PM CDT Inhaled Oxygen Concentration - - Weight 123.5 kg (272 lb 4.3 oz) 11/29/2022 9:41 PM CDT Height 188 cm (6' 2 ) 11/29/2022 9:41 PM CDT Body Mass Index 34.96 11/29/2022 9:41 PM CDT documented in this encounter Medications [...] Discharge Disposition Disposition Code Departure Means Destination Left Against Medical Advice documented in this encounter ED Notes * Corrina Gibson MD - 11/29/2022 9:53 PM CDT HPI Chief Complaint Patient presents with Nausea HPI 9:53 PM Carlos Mcgee is a 52 y.o. male presenting to the ED c/o nausea and needing a medicationrefill. He states that he soon his psychiatrist so has been unable to see him since September 2022. He was seen briefly by Dr Roman who prescribed his Xanax for the past couple months. Patient received 90 tabs on November 02, 2022. Prior to that he would received 3 separate prescriptions since September. He is set up to see a new physician and a couple weeks. He is concerned that he will not haveXanax before then. He currently does not have any withdrawal symptoms. He was seen at [facility] requesting medication refill. However after an extensive process he left against medical advice. He states he did not go there to get a refill, he wanted to ???talk to someone?? about hismother dying. The documented note is contradictory to his memory of the event. He also states that he does not see Dr. Roman anymore because he went to the wrong hospital and Dr. Roman was mad at him. Patient is in no distress and is exam is grossly benign. He is calm but gets sharp with his tone at times. I advised him based on the number of Xanax he has received for the past month that I could not prescribe him more. I strongly advised to follow-up with the physician he is going to see an a couple weeks. Due to his nausea, I did offer labs and Zofran. Patient History: Past Medical History: Diagnosis Date [...] on file Alcohol Use: Not on file Current Facility-Administered Medications: metoclopramide (REGLAN) tablet 10 mg, 10 mg, oral, Once Current Outpatient Medications: albuterol HFA (PROVENTIL HFA,VENTOLIN HFA,PROAIR HFA) 90 mcg/actuation inhaler alfuzosin ER (UROXATRAL) 10 mg 24 hr tablet ALPRAZolam (XANAX) 2 mg tablet atenoloL (TENORMIN) 100 mg tablet citalopram (CeleXA) 40 mg tablet cyclobenzaprine (FLEXERIL) 10 mg tablet diphenhydrAMINE (BENADRYL) 25 mg capsule fluticasone propionate (FLONASE) 50 mcg/actuation nasal spray hyoscyamine (LEVSIN) 0.125 mg tablet ibuprofen (ADVIL,MOTRIN) 600 mg tablet meclizine (ANTIVERT) 25 mg tablet mirabegron ER (MYRBETRIQ) 25 mg tablet extended release 24 hr omeprazole (PriLOSEC) 40 mg capsule ondansetron ODT (ZOFRAN-ODT) 4 mg disintegrating tablet oxybutynin (DITROPAN) 5 mg tablet polyethylene glycol (MIRALAX) 17 gram packet promethazine (PHENERGAN) 25 mg tablet simethicone (MYLICON) 125 mg chewable tablet solifenacin (VESIcare) 10 mg tablet Review of Systems Review of Systems All systems reviewed and are neg or non contributory for this patients presentation today other than as stated in the HPI . Physical Exam ED Triage Vitals [11/29/222140] Temp Pulse Resp BP SpO2 37.3 ??C (99.2 ??F) 64 16 159/86 98 % Temp src Heart Rate Source Patient Position BP Location FiO2 (%) Oral -- -- -- -- Height Height Method Weight Weight Method 1.88 m (6' 2 ) Stated 123.5 kg (272 lb 4.3 oz) Standing scale Physical Exam Constitutional: General: He is not in acute distress. Appearance: Normal appearance. He is normal weight. He is not ill-appearing. HENT: Head: Normocephalic. Nose: Nose normal. Cardiovascular: Rate and Rhythm: Normal rate. Pulmonary: Effort: Pulmonary effort is normal. No respiratory distress. Neurological: General: No focal deficit present. Mental Status: He is alert. Psychiatric: Mood and Affect: Mood normal. Behavior: Behavior normal. Thought Content: Thought content normal. Judgment: Judgment normal. Procedures [facility] Labs Reviewed CBC WITH AUTO DIFFERENTIAL COMPREHENSIVE METABOLIC PANEL DRUGS OF ABUSE SCREEN, URINE WITH REFLEX CONFIRMATION No orders to display BP 159/86 Pulse 64 Temp 37.3 ??C (99.2 ??F) (Oral) Resp 16 Ht 188 cm (6' 2 ) Wt 123.5 kg (272 lb 4.3 oz) SpO2 98% BMI 34.96 kg/m?? [facility] ED Course as of 11/29/222204 Time: 11/29 2202 Comment: Patient has a history of aggressive behavior towards staff in the past per previous records. He was calm and cooperative today although appeared frustrated that I would not refill his Xanax.He chose to leave the emergency department after I offered to give him something for his nausea anddo basic lab work. I had previously strongly advise that he follow up with his new primary care provider for a refill By: Corrina Gibson MD This examination was transcribed using the Xirrus voice recognition system without human public relations officer. In an effort to expedite patient care, this report has not been adjusted for typographical, grammatical, and syntax by a trained claim review medical director. Clinical Impression: Medication refill Corrina Gibson MD 11/29/222204 * Chyna Bhatti RN - 11/29/2022 9:40 PM CDT C/o nausea onset last week, denies any other symptoms. Reports hx anxiety and is out of his medication documented in this encounter Plan of Treatment Scheduled Procedures Name Priority Associated Diagnoses Date/Ti me COLONOSCOPY Open Access Diverticulitis documented as of this encounter Visit Diagnoses Diagnosis Medication refill- Primary Issue of repeat prescriptions documented in this encounter Active and Recently Administered Medications Orders Medications Ordered That Stevie ht Not Have Been Administered Count Last Ordered Date First Ordered Date metoclopramide (REGLAN) tablet 10 mg 1 11/11 documented in this encounter Care Teams Clinical Data Analyst Relationship Specialty Start Date End Date No, Physician PCP - General 11/27/21 01/13/23 Miscellaneous, Not In File 11/16/19 documented as of this encounter
--- OUTSIDE RECORDS SUMMARY | 2024-09-10 04:08 | XMS_ITS | Encounter Summary ---
Author Organization [facility] Address [address] [place] [address] Phone Care Team Providers Care Insurance Claim Auditor Name Role Phone Miscellaneous, Not In File Unavailable Unava ilable Unknown, Notinfile Primary Care Provider Unavail able Encounter Details Date Type Department Care Team (Late st Contact Info) Description 05/09/2021 Telephone [facility] Advanced Medicine ([facility]) - [facility] Urology [address] [facility] Advanced Medicine [address]th [place] [address] [place] [address] Leslie Costello MD [address] [facility] [address] [place], [place] [id number] Social History Tobacco Use Types Packs/Day Years [...] on file 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 Costello. This patient is highly non compliant and has been seen multiple times. I have had multiple discussions with him regarding his issues. He has been told to undergo cystoscopy multiple times to further evaluate his symptoms and to guide us in treatment. He has rescheduled and no showed multiple times.He continues to call our department wanting treatment over the phone without following through withfurther evaluation. He also expects an immediate call back otherwise he continues to call. He has also called me for inappropriate requests in the past such as asking to refill his BP medication, asking to treat his GI symptoms, telling me a small part of his hand turned yellow, etc. Even if he does call for urology related complaints, he claims he cannot give a urine sample. He had DANIE at his initial appointment with me. He needs to show for his appointments and have cystoscopy done as originally planned otherwise I have nothing further to offer him. Again, thanks so much with speaking with him and letting me know. * Telephone Encounter - Leslie Costello MD - 05/09/2021 5:26 AM CDT Call started 0515 AM Patient calls reporting he gave his REGISTERED NURSE TEACHER Tammy Goodman a call yesterday but did not receive a call back and would like to speak with someone regarding his concerns. He reports pain in the tip of the penis, pain with urination as well as pain with sitting down. He has a history of chronic penile and bladder pain had tried multiple medications including Levsinand Azo. He is out of his Levsin and would like a refill. He has an appointment booked for next Wednesday but is uncomfortable and wants to speak with someone now. He has been on cipro/flagyl for an episode of diverticulitis. He is concerned he has prostatitis, among a number of unrelated, non-urologic concerns. Of note he his recovering from COVID. Discussed that source of symptoms could certainly be prostatitis vs UTI vs exacerbation of chronic issues. Recommended he keep his appointment with Tammy next week for in person evaluation, UA and cx, and DANIE, or present to the ED sooner should he develop high fever, urinary retention, uncontrolledsevere pain. Levsin refilled. documented in this encounter Plan of Treatment Scheduled Procedures Name Priority Associated Diagnoses Date/Ti me COLONOSCOPY Open Access Diverticulitis documented as of this encounter Visit Diagnoses Not on filedocumented in this encounter Care Teams Insurance Claim Auditor Relationship Specialty Start Date End Date Unknown, Notinfile PCP - General 05/08/21 11/26/21 Miscellaneous, Not In File 11/16/19 documented as of this encounter
--- OUTSIDE RECORDS SUMMARY | 2024-09-10 04:08 | XMS_ITS | Encounter Summary ---
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 He also wanted to know since he not seeing Dr. Gamboa anymore would it be possible for you to prescribe his blood pressure medication since he does not want to go to the ER or urgent care, I informed him that you are unable to do that but he wanted the message related documented in this encounter Plan of Treatment Scheduled Procedures Name Priority Associated Diagnoses Date/Ti me COLONOSCOPY Open Access Diverticulitis documented as of this encounter Visit Diagnoses Not on filedocumented in this encounter Care Teams Pool Manager Relationship Specialty Start Date End Date Carlos Gamboa MD [address] [place] [address] PCP - General Family Medicine 09/30/20 05/07/21 Miscellaneous, Not In File 11/16/19 documented as of this encounter
--- OUTSIDE RECORDS SUMMARY | 2024-09-10 04:08 | XMS_ITS | Encounter Summary ---
Author Organization [facility] Address [address] [place] [address] Phone Care Team Providers Care Orthopedic Dentist Name Role Phone Miscellaneous, Not In File Unavailable Unava ilable Unknown, Notinfile Primary Care Provider Unavail able Encounter Details Date Type Department Care Team (Late st Contact Info) Description 05/20/2021 Telephone [facility] Surgery [facility] [facility] [address] [place] [phone] Levi Rajput RMA Social History Tobacco Use Types Packs/Day [...] on file 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 His phone was not accepting phone calls. Mailed him a letter stating the time and date of apt. documented in this encounter Plan of Treatment Scheduled Procedures Name Priority Associated Diagnoses Date/Ti me COLONOSCOPY Open Access Diverticulitis documented as of this encounter Visit Diagnoses Not on filedocumented in this encounter Care Teams Orthopedic Dentist Relationship Specialty Start Date End Date Unknown, Notinfile PCP - General 05/08/21 11/26/21 Miscellaneous, Not In File 11/16/19 documented as of this encounter
--- OUTSIDE RECORDS SUMMARY | 2024-09-10 04:08 | XMS_ITS | Encounter Summary ---
Author Organization [facility] Address [address] [place] [address] Phone Care Team Providers Care Cargo Surveyor Name Role Phone Miscellaneous, Not In File Unavailable Unava ilable Unknown, Notinfile Primary Care Provider Unavail able Reason for Visit * Reason Comments Urinary Frequency Cystoscopy * Consultation (Routine) - Closed Specialty Diagnoses / Procedures Referred By Redd mobley Referred To Contact Urology Diagnoses Follow up Carlos Gamboa MD [address] [place] [address] Phone: tel: fax: [facility] (All Locations) Referral ID Status Reason Start Date Expiration Date V isits Requested Visits Authorized [id number] Closed Specialty Services Required 11/11/2020 12/11/[phone] Encounter Details Date Type Department Care Team (Late st Contact Info) Description 05/16/2021 11:40 AM CDT Office Visit [facility] Surgery [address] [place] [address] [address] [place] [address] Nav Nolen MD [address] [place] [address] Pelvic pain (Primary Dx) Social History Tobacco Use Types [...] on file 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 UROLOGY NEW PATIENT NOTE Patient Name: Carlos Mcgee Referred by: Carlos Gamboa* PCP: Unknown, Notinfile Date of Visit: 05/16/2021 Chief Complaint: hematuria HPI: Carlos Mcgee is a 51 y.o. male who is presenting for cystoscopy as part of evaluation for bladder pain. He has a history of uncontrolled diabetes, kidney stones and anxiety. He has been treated with Mirabegron as well as alfuzosin and tamsulosin, VESIcare and oxybutynin for urinary frequency. He has tried azo for penile pain. Patient had a CT on 10/07/20 of the abdomen and pelvis without contrast. I was unable to review these images. Report described urinary bladder wall thickening. Mildly enlarged prostate and bilateral nonobstructing subcentimeter nephrolithiasis. He has been following with Tammy Goodman NP and Alexandria COLLIER. He has been recommend see endocrinology for his uncontrolled diabetes. He has been recommended to have cystoscopy many times as cancellous previous appointments. Most recent urine culture on 05/14/2021 grew less than 100,000 colony-forming units per mL. Urinalysis at that time demonstrated only trace protein. Previous urinalyses have been similar. Current medications include Levsin, alfuzosin, Mirabegron, VESIcare, oxybutynin. Today on 05/16/2021 he is presenting for office cystoscopy. States he is having penile pain and urgency frequency every hour. The only thing that is helping is azo. He is having some fatigue as well as diarrhea. Renal ultrasound was ordered but not performed yet. He is not having any flank pain perse. Allergies as of 05/16/2021 - Reviewed 05/14/2021 Allergen Reaction Noted ??? Alum-mag hydroxide-simeth Shortness of breath 07/27/2012 ??? Clindamycin Anaphylaxis 09/22/2015 ??? Doxycycline Other (See comments) and Shortness of breath 03/05/2014 ??? Iodinated contrast media Shortness of breath, Hallucinations, and Hives 11/09/2009 ??? Iodine Hives and Shortness of breath 06/26/2013 ??? Keflex [cephalexin] Shortness of breath 11/16/2019 ??? Lidocaine Shortness of breath ??? Lisinopril Anaphylaxis 09/22/2015 ??? Losartan Angioedema 08/01/2019 ??? Sulfasalazine Shortness of breath 06/26/2013 ??? Sulfur Hives and Shortness of breath 11/16/2019 ??? Azithromycin Hives and Other (See comments) 10/04/2014 ??? Carvedilol Hives 12/05/2015 ??? Clonazepam Dizziness 03/12/2017 ??? Flavoxate Hives 06/24/2018 ??? Glimepiride Urticaria 08/25/2019 ??? Metrizamide Delusions 11/30/2009 ??? Morphine Hallucinations 06/26/2013 ??? Nebivolol Swelling 12/05/2015 ??? Pepcid [famotidine] Hives 03/12/2017 ??? Sitagliptin Chest tightness 12/31/2019 ??? Sulfa (sulfonamide antibiotics) Hives ??? Sulfamethoxazole-trimethoprim Hives ??? Uroseptic ds Rash 06/11/2016 ??? Zyprexa [olanzapine] Hallucinations 03/12/2017 ??? Trimethoprim ??? Barium iodide Dizziness and Other (See comments) 07/25/2014 ??? Buspar [buspirone] Dizziness 03/12/2017 ??? Clonidine Anxiety 12/05/2015 ??? Codeine Dizziness 06/24/2018 ??? Dicyclomine Anxiety 06/24/2018 ??? Hydralazine Mental status changes 12/05/2015 ??? Levetiracetam Other (See comments) 11/16/2019 ??? Levofloxacin Flushing (skin) ??? Macrobid [nitrofurantoin] Unknown 10/17/2020 ? ? Metformin Nausea & Vomiting 08/01/2019 ??? Ondansetron Unknown 06/24/2018 ??? Oxycodone Palpitations 06/24/2018 ??? Paroxetine hcl Anxiety 01/07/2015 ??? Toradol [ketorolac] Nausea only 03/12/2017 Current Outpatient Medications: ??? albuterol HFA (PROVENTIL HFA,VENTOLIN HFA) 90 mcg/actuation inhaler, Inhale 2 puffs every 6 hours., Disp: , Rfl: ??? alfuzosin ER (UROXATRAL) 10 mg 24 hr tablet, Take 1 tablet (10 mg total) by mouth daily, Disp: 30 tablet, Rfl: 5 ??? ALPRAZolam (XANAX) 2 mg tablet, 2 mg Four times daily, Disp: , Rfl: ??? atenolol (TENORMIN) 100 mg tablet, Take 1 tablet (100 mg total) by mouth daily., Disp: 30 tablet, Rfl: 3 ??? ciprofloxacin (CIPRO) 500 mg tablet, , Disp: , Rfl: ??? cyclobenzaprine (FLEXERIL) 10 mg tablet, 10 mg, Disp: , Rfl: ??? diphenhydrAMINE (BENADRYL) 25 mg capsule, Take 25 mg by mouth 2 (two) times a day, Disp: , Rfl: ??? fluticasone propionate (FLONASE) 50 mcg/actuation nasal spray, Administer 2 sprays into each nostril daily, Disp: 1 Inhaler, Rfl: 5 ??? hyoscyamine (LEVSIN) 0.125 mg tablet, Take 1 tablet (0.125 mg total) by mouth every 4 (four) hours as needed for cramping, Disp: 30 tablet, Rfl: 0 ??? ibuprofen (ADVIL,MOTRIN) 600 mg tablet, Take 600 mg by mouth every 6 hours., Disp: , Rfl: ??? meclizine (ANTIVERT) 25 mg tablet, Take 25 mg by mouth every 12 hours., Disp: , Rfl: ??? mirabegron ER (MYRBETRIQ) 25 mg tablet extended release 24 hr, Take 1 tablet (25 mg total) by mouth daily, Disp: 30 tablet, Rfl: 2 ??? omeprazole (PriLOSEC) 40 mg capsule, Take 1 capsule (40 mg total) by mouth daily, Disp: 30 capsule, Rfl: 5 ??? ondansetron ODT (ZOFRAN-ODT) 4 mg disintegrating tablet, Take 1 tablet (4 mg total) by mouth daily, Disp: 15 tablet, Rfl: 0 ??? oxybutynin (DITROPAN) 5 mg tablet, Take 1 tablet (5 mg total) by mouth 2 (two) times a day, Disp: 60 tablet, Rfl: 5 ??? polyethylene glycol (MIRALAX) 17 gram packet, daily TAKE: 1 packet mixed with 8 ounces of fluid, Once a day, Disp: , Rfl: ??? promethazine (PHENERGAN) 25 mg tablet, Take 1 tablet (25 mg total) by mouth every 6 (six) hoursas needed for nausea or vomiting, Disp: 10 tablet, Rfl: 0 ??? simethicone (MYLICON) 125 mg chewable tablet, 125 mg 4 (four) times a day, Disp: , Rfl: ??? solifenacin (VESIcare) 10 mg tablet, Take 1 tablet (10 mg total) by mouth daily, Disp: 30 tablet, Rfl: 11 Past Medical History: Diagnosis Date ??? Anxiety ??? Arthritis ??? Asthma ??? Benzodiazepine dependence (CMS/HCC) (HCC) ??? Colon tumor sigmoid benign ??? Depression ??? Diverticulitis ??? Diverticulosis ??? Hypertension ??? PTSD (post-traumatic stress disorder) ??? Recurrent major depressive disorder (HCC) ??? Type 2 diabetes mellitus (HCC) Past Surgical History: Procedure Laterality Date ??? CHOLECYSTECTOMY ??? CHOLECYSTECTOMY 2001 Family History Problem Relation Age of Onset ??? Bipolar disorder Mother ??? Anxiety disorder Mother ??? Liver disease Mother ??? Heart disease Father ??? Kidney disease Father ??? Hypertension Mother ??? Hyperlipidemia Mother ??? Mental illness Mother ??? Hypertension Father ??? Stroke Father ??? Hyperlipidemia Father Social History Socioeconomic History ??? Marital status: Spouse name: Not on file ??? Number of children: Not on file ??? Years of education: Not on file ??? Highest education level: Not on file Occupational History ??? Not on file Tobacco Use ??? Smoking status: Former Smoker Packs/day: 1.00 Years: 5.00 Pack years: 5.00 Types: Cigarettes Start date: 1990 Quit date: 1995 Years since quittin.6 ??? Smokeless tobacco: Never Used Substance and Sexual Activity ??? Alcohol use: Not Currently ??? Drug use: Never ??? Sexual activity: Not on file Other Topics Concern ??? Not on file Social History Narrative Merged History Encounter Patient is . He lives independently. He is employed Social Determinants of Health Financial Resource Strain: ??? Difficulty of Paying Living Expenses: Not on file Food Insecurity: ??? Worried About Running Out of Food in the Last Year: Not on file ??? Ran Out of Food in the Last Year: Not on file Transportation Needs: ??? Lack of Transportation (Medical): Not on file ??? Lack of Transportation (Non-Medical): Not on file Physical Activity: ??? Days of Exercise per Week: Not on file ??? Minutes of Exercise per Session: Not on file Stress: ??? Feeling of Stress : Not on file Social Connections: ??? Frequency of Communication with Friends and Family: Not on file ??? Frequency of Social Gatherings with Friends and Family: Not on file ??? Attends Zoroastrian Services: Not on file ??? Active Member of Clubs or Organizations: Not on file ??? Attends Club or Organization Meetings: Not on file ??? Marital Status: Not on file Intimate Partner Violence: ??? Fear of Current or Ex-Partner: Not on file ??? Emotionally Abused: Not on file ??? Physically Abused: Not on file ??? Sexually Abused: Not on file Review of systems: A complete review of systems was taken from the patient today and reviewed, this was scanned into the patient's chart. As per HPI. Physical Exam: There were no vitals taken for this visit. Constitutional: no acute distress Skin/Integumentary: no exposed bruising or rashes Eyes: Extraocular muscles intact, mucous membranes normal Ears, Nose, Mouth/Throat: neck normal range of motion and trachea midline Respiratory: No coarse breath sounds or wheezing, breathing symmetric Gastrointestinal: Non-distended, soft, non-tender, no hernia, no masses Genitourinary: No CVA tenderness Psychiatric: Mood and affect appropriate, alert and oriented Neurologic: Speech clear, grossly normal movement/strength Lab/Radiology/Diagnostic Review: Results: No results found. No results found for: PSA, SCRPSAT, SCRPSAS, SCRPSAF, SCRFPSA, PSA, [id number] Lab Results Component Value Date COLORU Dark Yellow 12/02/2020 CLARITYU Clear 12/02/2020 GLUCOSEUR Negative 05/14/2021 KETONESU Negative 05/14/2021 SPECGRAVU 1.021 10/07/2020 BLOODURPOC Negative 05/14/2021 MELLO 5.0 05/14/2021 PROTUR Trace (A) 05/14/2021 POCURNITRITE Negative 05/14/2021 LEUKOCYTESUR Negative 05/14/2021 No results found for this or any previous visit from the past 30 days. No results found for this or any previous visit from the past 365 days. Procedure: Cystourethroscopy Indication: Penile pain, lower refractory irritative voiding symptoms Performing practitioner: Nav Nolen MD Anesthesia: Lidocaine 1% per urethra Description of procedure: The patient's penis was prepped in standard sterile fashion and viscous lidocaine was instilled perurethra. A 17-Fr flexible cystoscope was introduced into his urethra. His urethra was without stricture. Prostate was normal and without a median lobe. Lema endoscopy of his bladder was notable for no abnormalities. Bilateral ureteral orifices were orthotopic and normal appearing. Retroflexion revealed no abnormalities of the bladder neck. Scope was withdrawn and urethra was normal appearing. Bladder washings were not obtained. Scope was removed and procedure was concluded. The patient toleratedthe procedure well without complication. Assessment/Plan: Carlos Mcgee is a 51 y.o. male with chronic penile pain and urgency frequency likely secondary to pelvic floor dysfunction refractory to oral alpha- justine, anticholinergic and beta 3 agonist therapy. Cystoscopy today was negative and recent culture was consistent with contaminated specimen. I tried to reassure him that there are no worrisome findings. I recommended pelvic floor physical therapy as well as NSAIDs. Also recommended referral to Dr. Wayne. Also agree with getting the renal ultrasound to make sure that in his kidney stones that were previously seen are not enlarging or obstructing although this is less likely. We spent quite a bit of time trying to explain this to him. I tried to reiterate that his pain will not resolve after today's cystoscopy is likely to be worse for a few days. Discussed that is normal to have some blood in the urine. He also reported having a colon tumor on recent colonoscopy 3 years ago that he has not followed up on. Plan summary: Recommend re-establishing GI care Referral placed for pelvic floor physical therapy Will refer to my partner Dr. Wayne for treatment of chronic pelvic pain Nav Nolen MD Horse Buyer of Urologic Surgery [facility] [employer] Please note: Program Proposals Coordinator completed using M*Modal Fluency Direct speaking software, therefore, variances/typos may occur. documented in this encounter Plan of Treatment Scheduled Procedures Name Priority Associated Diagnoses Date/Ti hi COLONOSCOPY Open Access Diverticulitis documented as of this encounter Visit Diagnoses Diagnosis Pelvic pain- Primary documented in this encounter Care Teams Cargo Surveyor Relationship Specialty Start Date End Date Unknown, Notinfile PCP - General 05/08/21 11/26/21 Miscellaneous, Not In File 11/16/19 documented as of this encounter
--- OUTSIDE RECORDS SUMMARY | 2024-09-10 04:08 | XMS_ITS | Encounter Summary ---
Author Organization [facility] Healthcare Address [address] [place] [address] Care Team Providers Care Metal Bonding Worker Name Role Phone Miscellaneous, Not In File Unavailable Unava ilable Unknown, Notinfile Primary Care Provider Unavail able Encounter Details Date Type Department Care Team (Latest Contact Info) Description 05/17/2021 Telephone Urology Rita Kelley MD [address] 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 Patient reports that he is allergic to lidocaine and had a difficult time tolerating the cystoscopy without analgesia. Patient underwent cystoscopy and there were no abnormalities. Patient has been taking Ibuprofen without relief. Patient hashad an adverse reaction to hyoscyamine and solifenacin. I recommended staggering Tylenol, Ibuprofen, and oxybutynin to see if his symptoms improve. He reported that oxybutynin did not relieve his symptoms in the past, but given his penile pain, it would be a reasonable option. He will give me a call back tomorrow if pain persists. I recommended he head to the ED if he in fact thinks that this is r elated to his past GI symptoms. Otherwise, like Dr. Nolen mentioned in his last clinic visit, he should call to schedule an appointment with Dr. Wayne regarding his chronic pelvic pain We discussed at length his dissatisfaction with some of his providers. documented in this encounter Plan of Treatment Scheduled Procedures Name Priority Associated Diagnoses Date/Ti me COLONOSCOPY Open Access Diverticulitis documented as of this encounter Visit Diagnoses Not on filedocumented in this encounter Care Teams Metal Bonding Worker Relationship Specialty Start Date End Date Unknown, Notinfile PCP - General 05/08/21 11/26/21 Miscellaneous, Not In File 11/16/19 documented as of this encounter
--- OUTSIDE RECORDS SUMMARY | 2024-09-10 04:08 | XMS_ITS | Encounter Summary ---
Author Organization [facility] Healthcare Address [address] [place] [address] Care Team Providers Care Carbon Paper Coating Machine Setter Name Role Phone Miscellaneous, Not In File Unavailable Unava ilable No, Physician Primary Care Provider [phone] Reason for Visit * Reason Comments Med Refill Encounter Details Date Type Department Care Team ([facility] st Contact Info) Description 09/20/2022 7:59 PM KEELER POLYGRAPH OPERATOR - 09/20/2022 8:28 PM KEELER POLYGRAPH OPERATOR Emergency 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 Gender Identity Not on file Sexual Orientation Not on file documented as of this encounter Last Filed Vital Signs Vital Sign Reading Time Taken Comments Blood Pressure 181/100 09/20/2022 8:11 PM KEELER POLYGRAPH OPERATOR Pulse 64 09/20/2022 8:11 PM KEELER POLYGRAPH OPERATOR Temperature 37.2 ??C (99 ??F) 09/20/2022 8:11 PM KEELER POLYGRAPH OPERATOR Respiratory Rate 20 09/20/2022 8:11 PM KEELER POLYGRAPH OPERATOR Oxygen Saturation 99% 09/20/2022 8:11 PM KEELER POLYGRAPH OPERATOR Inhaled Oxygen Concentration - - Weight 126.5 kg (278 lb 14.1 oz) 09/20/2022 8:11 PM KEELER POLYGRAPH OPERATOR Height - - Body Mass Index 36.79 09/02/2022 3:16 PM KEELER POLYGRAPH OPERATOR documented in this encounter Discharge Instructions * Discharge Instructions* Bertha Gomez PA - 09/20/2022 8:22 PM KEELER POLYGRAPH OPERATOR Please follow up with your primary care physician, as soon as possible, and ideally within [...] open05/04 and will take care of you. ER POLYGRAPH OPERATOR * Attachments The following attachments cannot be sent through Care Everywhere. * Medicine Refill (AfterCare(R) Instructions(ER/ED)) (British) documented in this encounter Medications at Time [...] Refills Last Filled Start Date End Date ALPRAZolam (XANAX) 2 mg tablet Take 1 tablet (2 mg total) by mouth 3 (three) times a day as needed for anxiety for up to 12 doses 12 tablet 09/20/2022 citalopram (CeleXA) 40 mg tablet Take 1 tablet (40 mg total) by mouth every morning for 10 days 10 tablet 09/20/2022 4 documented in this encounter Discharge Disposition Disposition Code Departure Means Destination Discharge to home or self care documented in this encounter ED Notes * Bertha Gomez PA - 09/20/2022 8:17 PM CST CHIEF COMPLAINT: Chief Complaint Patient presents with Med Refill HPI 8:35 PM Carlos Mcgee is a 52 y.o. male with significant psychiatric history presenting to the ED c/o medication refill. Pt states he took his last xanax this AM and his last Celexa two days ago. Pt feels shaky and is concerned fto have a seizure. He has seen Dr. Harris at [facility] has an appt onWednesday. He was diagnosed with Covid 7 days ago and has been unable to get his medication filled. He was decreased from 4x/day to 3x/day. PCP: No, Physician PAST MEDICAL HISTORY Past [...] date: 1990 Quit date: 1995 Years since quittin.0 Smokeless tobacco: Never Substance and Sexual Activity Drug use: Never Sexual activity: Not on file Alcohol Use: Not on file PHYSICAL EXAM TRIAGE VITAL SIGNS: ED Triage Vitals [09/20/222010] Temp Pulse Resp BP SpO2 37.2 ??C (99 ??F) 64 20 (!) 181/100 99 % Temp src Heart Rate Source Patient Position BP Location FiO2 (%) Oral -- -- -- -- Height Height Method Weight Weight Method -- -- 126.5 kg (278 lb 14.1 oz) Standing scale Physical Exam Vitals and nursing note reviewed. Constitutional: Appearance: He is well-developed. He is obese. Comments: Pleasant male, no acute distress HENT: Head: Normocephalic and atraumatic. Eyes: Conjunctiva/sclera: Conjunctivae normal. Cardiovascular: Rate and Rhythm: Normal rate and regular rhythm. Heart sounds: Normal heart sounds. No murmur heard. Pulmonary: Effort: Pulmonary effort is normal. No respiratory distress. Breath sounds: Normal breath sounds. Abdominal: Palpations: Abdomen is soft. Tenderness: There is no abdominal tenderness. Musculoskeletal: Cervical back: Neck supple. Skin: General: Skin is warm and dry. Neurological: Mental Status: He is alert and oriented to person, place, and time. Comments: Flat affect LABS Labs Reviewed - No data to display RADIOLOGY Impression: NA EKG NA ED COURSE/MEDICAL DECISION MAKING Differential diagnosis included but not limited to med refill, drug seeking, seizure concern Patient's medical records were reviewed. I was able to verify in [facility] that pt gets medication refills every month, 2mg, 30 day supply, and was recently decreased, by his psychiatrist, Dr. Harris. I can see that he has gone more than 30 dayswithout a refill and that he likely did run out recently and has been stretching his medication. I will refill his medication through Wednesday. He is clearly under the care of a psychiatrist and hasnot been to the ER for mental health issues in more than 2 years. Procedures FINAL IMPRESSION Encounter for medication refill Panic disorder DISPOSITION: Home All findings were discussed with patient. Pt agreeable with plan. Non toxic appearing, vitals stable. Patient stable for discharge home. Given return to ER precautions Close outpatient follow-up with a low threshold to return has been mandated , concerning symptoms have been emphasized in detail, and this patient expresses understanding PATIENT INSTRUCTED TO FOLLOW UP Shawanda Harris, VENTURA [address] [facility] [address] [facility] [address] Call in 1 week DISCHARGE MEDICATIONS Your medication list START taking these medications Instructions Last Dose Given Next Dose Due citalopram 40 mg tablet Commonly known as: CeleXA Take 1 tablet (40 mg total) by mouth every morning for 10 days CHANGE how you take these medications Instructions Last Dose Given Next Dose Due ALPRAZolam 2 mg tablet Commonly known as: XANAX What changed: how to take this when to take this reasons to take this additional instructions Take 1 tablet (2 mg total) by mouth 3 (three) times a day as needed for anxiety for up to 12 doses ASK your doctor about these medications Instructions Last Dose Given Next Dose Due albuterol HFA 90 mcg/actuation inhaler Commonly known as: PROVENTIL HFA,VENTOLIN HFA,PROAIR HFA Inhale 2 puffs every 4 (four) hours as needed for wheezing alfuzosin ER 10 mg 24 hr tablet Commonly known as: UROXATRAL Take 1 tablet (10 mg total) by mouth daily atenoloL 100 mg tablet Commonly known as: TENORMIN Take 1 tablet (100 mg total) by mouth daily for 14 days cyclobenzaprine 10 mg tablet Commonly known [...] mouth daily Where to Get Your Medications These medications were sent to [facility] #[id number] [address] Hours: 24-hours ALPRAZolam 2 mg tablet citalopram 40 mg tablet This examination was transcribed using the D[employer] voice recognition system without human platinum smith. In an effort to expedite patient care, this report has not been adjusted for typographical, grammatical, and syntax by a trained medical laboratory manager. Bertha Gomez PA 09/20/222034 Cosigned by Alisa Vazquez DO at 09/26/2022 4:28 AM KEELER POLYGRAPH OPERATOR ER POLYGRAPH OPERATOR ER POLYGRAPH OPERATOR Associated attestation - Alisa Vazquez DO - 09/26/2022 4:28 AM KEELER POLYGRAPH OPERATOR ED Attestation I did not see this patient. However, I was personally available for consultation in the ED for thispatient if the Advanced Practice Provider (MARY) needed any assistance. The MARY evaluated the patient independently and completed their own examination, documentation, and disposition. * Winter Cruz, RN - 09/20/2022 8:08 PM CST Pt arrives requesting refills for his psych meds. Pt is requesting celexa 40 mg and xanax 2mg tid. Pt was just seen [address] [facility] for same complaint and was prescribed atarax. Pt refused to take discharge paperwork per notes from [facility]. Pt states that he is between psychiatrists. ER POLYGRAPH OPERATOR ER POLYGRAPH OPERATOR documented in this encounter Plan of Treatment Scheduled Procedures Name Priority Associated Diagnoses Date/Ti nc COLONOSCOPY Open Access Diverticulitis documented as of this encounter Visit Diagnoses Diagnosis Encounter for medication refill- Primary Panic disorder Panic disorder without agoraphobia documented in this encounter Discontinued Medications Medication Sig Discontinue Reason Start Date End Da te ALPRAZolam (XANAX) 2 mg tablet 2 mg Four times daily 06/19/2018 09/20/2022 documented as of this encounter Care Teams Carbon Paper Coating Machine Setter Relationship Specialty Start Date End Date No, Physician PCP - General 11/27/21 01/13/23 Miscellaneous, Not In File 11/16/19 documented as of this encounter
--- OUTSIDE RECORDS SUMMARY | 2024-09-10 04:08 | XMS_ITS | Encounter Summary ---
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 Left voicemail to call our ofice back. * Telephone Encounter - Tracie Parish - 03/20/2021 8:39 AM CDT Attempted to contact patient and left a message to contact the office back. * Telephone Encounter - Tracie Parish. - 03/19/2021 10:54 AM CDT Attempted to contact patient and left a message to contact the office back on the [phone]. * Telephone Encounter - Tracie Parish - 03/18/2021 8:24 AM CDT Attempted to contact patient and all numbers listed to contact him are disconnected. I found a [phone] listed on his facesheet and left a message on that number. * Telephone Encounter - Miguel Farfan MD - 03/15/2021 5:24 PM CDT Patient called twice yesterday evening and again today with concerns related to his chronic penile pain. Asked if his negative UA could have been a false negative. Expressed that this is very unlikely, but that if he is having significant symptoms then he can present for repeat evaluation to the ED. Is now very concerned that his penile pain is from his diverticulitis. Discussed that I would recommend he discuss treatment for his diverticulitis with his GI doctor. Reiterated once again that as he has been taking pyridium and has previously trialed oxybutynin andFlomax without relief that I do not have further interventions to offer him without additional clinical information. Encouraged him to present to the ED if symptoms significantly worsen. Patient asked if he could have a clinic appointment scheduled in the upcoming week as he is very concerned that his symptoms have persisted. Will cc his prior team to arrange this, told patient to expect a call early this week. Miguel Farfan MD documented in this encounter Plan of Treatment Scheduled Procedures Name Priority Associated Diagnoses Date/Ti me COLONOSCOPY Open Access Diverticulitis documented as of this encounter Visit Diagnoses Not on filedocumented in this encounter Care Teams Court Registry Officer Relationship Specialty Start Date End Date Carlos Gamboa MD [address] [place] [address] PCP - General Family Medicine 09/30/20 05/07/21 Miscellaneous, Not In File 11/16/19 documented as of this encounter
--- OUTSIDE RECORDS SUMMARY | 2024-09-10 04:08 | XMS_ITS | Encounter Summary ---
Author Organization [facility] Address [address] [place] [address] Phone Care Team Providers Care Television News Photographer Name Role Phone Miscellaneous, Not In File Unavailable Unava ilable Unknown, Notinfile Primary Care Provider Unavail able Encounter Details Date Type Department Care Team (Late st Contact Info) Description 05/11/2021 Telephone [facility] - [facility] Urology [address] [facility] 11th [place] [address] [place] [address] Stanton Guajardo MD [address] [facility] [address] [place] [address] Social History Tobacco Use Types Packs/Day Years [...] on file 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 Refractory to meds. Told to go to his appointment on Wednesday. No fever, chills, or urinary retention. documented in this encounter Plan of Treatment Scheduled Procedures Name Priority Associated Diagnoses Date/Ti me COLONOSCOPY Open Access Diverticulitis documented as of this encounter Visit Diagnoses Not on filedocumented in this encounter Care Teams Television News Photographer Relationship Specialty Start Date End Date Unknown, Notinfile PCP - General 05/08/21 11/26/21 Miscellaneous, Not In File 11/16/19 documented as of this encounter
--- OUTSIDE RECORDS SUMMARY | 2024-09-10 04:08 | XMS_ITS | Encounter Summary ---
Author Organization [facility] Healthcare Address [address] [place] [address] Care Team Providers Care Heddle Machine Operator Name Role Phone Miscellaneous, Not In File Unavailable Unava Carlos Brown MD Primary Care Provid er Encounter Details Date Type Department Care Team (Late st Contact Info) Description 02/01/2021 Telephone [facility] Urology [address] [facility] 4th Floor [address] [place] [address] [place] [address] [place] [address] [address] [place] [address] Social History Tobacco Use Types Packs/Day Years [...] on file 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 Upon chart review it appears that these symptoms are chronic with associated negative UAs. Given the mild severity of his symptoms with no acute change, I recommended that he provide a urinesample for UA to determine whether he needs antibiotics. He was dissatisfied with this plan and wished to start antibiotics immediately, stating that he does not have time for more testing because ofwork. Explained the importance of testing and answered all questions. He then abruptly ended the call. Junaid Sow MD documented in this encounter Plan of Treatment Scheduled Procedures Name Priority Associated Diagnoses Date/Ti nv COLONOSCOPY Open Access Diverticulitis documented as of this encounter Visit Diagnoses Not on filedocumented in this encounter Care Teams Heddle Machine Operator Relationship Specialty Start Date End Date Carlos Gamboa MD [address] [place] [address] PCP - General Family Medicine 09/30/20 05/07/21 Miscellaneous, Not In File 11/16/19 documented as of this encounter
--- OUTSIDE RECORDS SUMMARY | 2024-09-10 04:08 | XMS_ITS | Encounter Summary ---
Author Organization [facility] Healthcare Address [address] [place] [address] Care Team Providers Care Fire Regulator Name Role Phone Miscellaneous, Not In File Unavailable Unava ilable Unknown, Notinfile Primary Care Provider Unavail able Reason for Referral * Consultation (Routine) - Authorized Specialty Diagnoses / Procedures Referred By Redd mobley Referred To Contact Urology Diagnoses Dysuria Jaimie Johnson NP [address] [place] [address] Phone: tel: fax: Nav Nolen MD [address] [facility] [address] [place] [address] Phone: tel: fax: Referral ID Status Reason Start Date Expiration Date Visits Requested Visits Authorized [id number] Authorized Specialty Services Required 10/11/2023 11/09/2024 1 1 Question Answer Please select the performing region: External Order [171] To provider: NAV NOLEN [[id number]] # of visits: 1 ITOMETRIST Reason for Visit * Reason Comments Urinary Problem Encounter Details Date Type Department Care Team (Late st Contact Info) Description 10/11/2023 6:40 PM DENSITOMETRIST - 10/11/2023 9:51 PM DENSITOMETRIST Emergency [facility] Emergency Department [address] [place] [id number] Dysuria (Primary Dx); Viral infection Discharge Disposition: Discharge to home or self [...] on file Legal Sex Male 1:40 AM DENSITOMETRIST Gender Identity Not on file Sexual Orientation Not on file documented as of this encounter Last Filed Vital Signs Vital Sign Reading Time Taken Comments Blood Pressure 167/88 10/11/2023 9:40 PM DENSITOMETRIST Pulse 59 10/11/2023 9:40 PM DENSITOMETRIST Temperature 36.4 ??C (97.6 ??F) 10/11/2023 9:40 PM CS T Respiratory Rate 18 10/11/2023 9:40 PM DENSITOMETRIST Oxygen Saturation 98% 10/11/2023 9:40 PM DENSITOMETRIST Inhaled Oxygen Concentration - - Weight 128.1 kg (282 lb 6.6 oz) 10/11/2023 3:45 PM DENSITOMETRIST Height 188 cm (6' 2 ) 10/11/2023 3:45 PM DENSITOMETRIST Body Mass Index 36.26 10/11/2023 3:45 PM DENSITOMETRIST documented in this encounter Discharge Instructions * Discharge Instructions* Jaimie Johnson NP - 10/11/2023 9:42 PM DENSITOMETRIST Please follow up with your primary care physician, as soon as possible, and ideally within 7 days. Please take any new medications as prescribed. Follow up with urology for further evaluation of today's complaints. Please return to the emergency department for [...] open05/04 and will take care of you. ITOMETRIST * Attachments The following attachments cannot be sent through Care Everywhere. * Dysuria (AfterCare(R) Instructions(ER/ED)) (Slovak) documented in this encounter Medications at Time [...] daily for 14 days 30 tablet 09/02/2022 10/12/202 4 citalopram (CeleXA) 40 mg tablet Take [...] by mouth daily 15 tablet 10/26/[address] (PROTONIX) 20 mg EC tablet Take 2 tablets (40 mg total) by mouth daily for 20 days 40 tablet 10/11/2023 4 documented as of this encounter Ordered Prescriptions Prescription Sig Dispense Quantity Refills Last Filled Start Date End Date promethazine (PHENERGAN) 25 mg tablet Take 1 tablet (25 mg total) by mouth every 6 (six) hours as needed for nausea or vomiting 12 tablet 10/11/[address] (PROTONIX) 20 mg EC tablet Take 2 tablets (40 mg total) by mouth daily for 20 days 40 tablet 10/11/2023 4 documented in this encounter Discharge Disposition Disposition Code Departure Means Destination Comment s Discharge to home or self care documented in this encounter Nursing Notes * Allan Recinos RN - 10/11/2023 9:51 PM CST PT left updated phone number to be contaced at [phone]. ITOMETRIST documented in this encounter ED Notes * Jaimie Johnson NP - 10/11/2023 8:21 PM CST CHIEF COMPLAINT: Chief Complaint Patient presents with Urinary Problem HPI 1:55 AM Carlos Mcgee is a 53 y.o. male presenting to the ED c/o ongoing urinary frequency, dysuria and lower abdominal pain. States that he was seen at last week and prescribed Cipro for UTI, last dose today. Reports fever, chills, body aches, nausea and upper respiratory symptoms - cough, congestion along with urinary symptoms. Has concern for STD's and would like testing for STI's and covid/influenza. Denies penile discharge or rash/lesions to penis. Reports receiving oral sex about 10days ago. Did not take anything for symptoms prior to coming to ER other than Cipro and AZO PCP: Unknown, Notinfile PAST MEDICAL HISTORY Past [...] Father MEDICATIONS GIVEN IN THE ED Medications acetaminophen (TYLENOL) tablet 650 mg (650 mg oral Not Given 10/11/231945) CURRENT HOME MEDICATIONS Current Facility-Administered Medications: acetaminophen (TYLENOL) tablet 650 mg, 650 mg, oral, Once, Jaimie Johnson NP Current Outpatient Medications: albuterol HFA (PROVENTIL HFA,VENTOLIN [...] a day, Disp: 60 tablet, Rfl: [address] (PROTONIX) 20 mg EC tablet, Take 2 tablets (40 mg total) by mouth daily for 20 days, Disp: 40 tablet, Rfl: 0 polyethylene glycol (MIRALAX) 17 gram [...] Smoking status: Former Packs/day: 1.00 Years: 5.00 Additional pack years: 0.00 Total pack years: 5.00 Types: Cigarettes Start date: 1990 Quit date: 1995 Years since quittin.0 Smokeless tobacco: Never Substance and Sexual Activity Drug use: Never Sexual activity: Not on file Alcohol Use: Not on file PHYSICAL EXAM TRIAGE VITAL SIGNS: ED Triage Vitals Temp Pulse Resp BP SpO2 10/11/23 1545 10/11/23 1545 10/11/23 1545 10/11/23 1545 10/11/23 1545 36.9 ??C (98.4 ??F) 62 18 154/85 96 % Temp src Heart Rate Source Patient Position BP Location FiO2 (%) 10/11/23 1545 10/11/23 2140 -- 10/11/232139 -- Oral Monitor Left arm Height Height Method Weight Weight Method 10/11/23 1545 10/11/23 1545 10/11/23 1545 10/11/23 1545 1.88 m (6' 2 ) Stated 128.1 kg (282 lb 6.6 oz) Standing scale Physical Exam Vitals and nursing note reviewed. Exam conducted with a dna sequencing associate present. Constitutional: General: He is not in acute distress. Appearance: Normal appearance. He is not ill-appearing or toxic-appearing. HENT: Head: Normocephalic and atraumatic. Right Ear: External ear normal. Left Ear: External ear normal. Nose: Nose normal. Mouth/Throat: Mouth: Mucous membranes are moist. Eyes: Extraocular Movements: Extraocular movements intact. Pupils: Pupils are equal, round, and reactive to light. Cardiovascular: Rate and Rhythm: Normal rate and regular rhythm. Heart sounds: Normal heart sounds. No murmur heard. No friction rub. No gallop. Pulmonary: Effort: Pulmonary effort is normal. Breath sounds: Normal breath sounds. Abdominal: General: Bowel sounds are normal. There is no distension. Palpations: Abdomen is soft. There is no mass. Tenderness: There is abdominal tenderness (mild in suprapubic region). There is no guarding. Genitourinary: Penis: Normal and circumcised. Testes: Left: Tenderness present. Musculoskeletal: General: No deformity. Normal range of motion. Cervical back: Normal range of motion and neck supple. Skin: General: Skin is warm and dry. Capillary Refill: Capillary refill takes less than 2 seconds. Neurological: General: No focal deficit present. Mental Status: He is alert and oriented to person, place, and time. Psychiatric: Mood and Affect: Mood normal. LABS Labs Reviewed URINALYSIS AND REFLEX TO MICROSCOPIC AND CULTURE - Abnormal Result Value Color, ur Yellow Clarity, ur Clear Specific gravity, ur 1.041 (*) pH, urine 6.0 Protein, ur ql 1+ (*) Glucose, ur ql Negative Ketones, ur Trace (*) Bilirubin, ur 1+ (*) Blood, ur Negative Urobilinogen, ur 4.0 (*) Nitrite, ur Negative Leukocyte esterase, ur 1+ (*) UA reflex comment Reflex to microscopic UA will be performed. URINALYSIS, MICROSCOPIC ONLY - Abnormal WBC, ur 0-5 RBC, ur 3-5 (*) Epithelial cells, squamous, ur 6-10 (*) Mucous, ur Present (*) Hyaline casts, ur 1-5 Culture Reflex Comment Value: Reflex conditions for urine culture (WBC >10) not met. CBC WITH AUTO DIFFERENTIAL - Abnormal WBC 6.2 Hgb 11.4 (*) Hct 37.2 (*) Plt 164 MPV 8.7 (*) RBC 5.54 MCV 67.1 (*) MCH 20.6 (*) MCHC 30.6 (*) RDW CV 18.3 (*) RDW SD 41.0 NRBC abs 0.00 COMPREHENSIVE METABOLIC PANEL - Abnormal Sodium 140 Potassium, pl 3.3 Chloride 101 CO2 26 Anion gap 13 BUN 12 Creatinine 1.00 Glucose 93 Calcium 8.7 Bilirubin, total 1.3 (*) Protein, pl 7.7 Albumin 4.6 Alk phos 64 ALT 37 AST 37 N. GONORRHOEAE/C. TRACHOMATIS AMPLIFICATION C. trachomatis Not Detected N. gonorrhoeae Not Detected TRICHOMONAS VAGINALIS PCR Trichomonas DNA Not Detected INFLUENZA A/B, RSV, AND COVID-19 PCR COVID-19 RNA Negative Influenza A RNA Negative Influenza B RNA Negative RSV RNA Negative Narrative: Is the Patient experiencing symptoms consistent with COVID?->Yes DIFFERENTIAL AUTO Neutrophil abs 4.2 Imm gran abs 0.0 Lymphocyte abs 1.5 Monocyte abs 0.4 Eosinophil abs 0.1 Basophil abs 0.0 Neutrophil pct 67.7 Imm gran pct 0.2 Lymphocyte pct 24.3 Monocyte pct 5.8 Eosinophil pct 1.5 Basophil pct 0.5 EGFR eGFR 91 RADIOLOGY Impression: Interpreted by radiologist and reviewed by this provider EXAM DESCRIPTION: CT ABDOMEN PELVIS WO CONTRAST REASON FOR STUDY: Abdominal pain, acute, nonlocalized, lower abdominal pain Pt arrives from home with urinary freq, pain, burning x 4 days. Pt seen at urgent care last week and finished cipro today. Pt still with chills, shaking, and nausea with above urinary sx. Pt requests STI testing. Denies penile d/c. Reports oral sex. Pt also reports URI sx and request covid/flu testing TECHNIQUE: CT scan of the abdomen and pelvis performed without intravenous and without oral contrast using helical scanning technique. Reconstructed coronal and sagittal MPR images reviewed. All images stored on PACS. Automated exposure control was used as a dose optimization technique for this examination. COMPARISON: CT abdomen and pelvis dated 11/10/2022. REFERENCE: Per ACR white paper recommendations, unless [...] pulmonary abnormalities. No effusion. LIVER: Normal size. Diffusely hypodense. No identified cystic or solid masses. GALLBLADDER: Surgically absent. BILE DUCTS: No intrahepatic or extrahepatic ductal dilatation. SPLEEN: Mildly enlarged. No focal lesion identified PANCREAS: No identified cystic or solid masses. No significant calcifications. No adjacent inflammation or peripancreatic fluid collections. Pancreatic duct not dilated. ADRENALS: Normal. KIDNEYS/URINARY TRACT: No identified significant cystic or solid masses. There is a 5 mm calculus at the superior polar region of the right kidney. There is a 4 mm calculus at the interpolar region there is a 5 mm calculus at the superior polar region of the left kidney. No hydronephrosis or ureterolithiasis is evident. Urinary bladder is nondistended. GI: There are scattered diverticula within the large bowel without adjacent inflammation to suggest diverticulitis. Redemonstration of moderate length segment circumferential wall thickening of the descending colon and proximal sigmoid colon, not significantly changed compared to prior exam. The appendix is normal in appearance. Small bowel appears within normal limits. PERITONEUM: No ascites or free air. There are bilateral inguinal hernias containing only fat, stable compared to prior exam. RETROPERITONEUM: There scattered mildly prominent retroperitoneal lymph nodes, stable compared to prior exam REPRODUCTIVE: No significant abnormality. VASCULATURE: No abdominal aortic aneurysm. MUSCULOSKELETAL: No acute abnormality. OTHER: No other abnormality. IMPRESSION: 1. No acute finding. 2. Nonobstructive nephrolithiasis. 3. Hepatic steatosis. 4. Colonic diverticulosis 5. Stable chronic colonic wall thickening of the descending and proximal sigmoid colon. THIS IS AN ELECTRONICALLY VERIFIED FINAL REPORT 10/11/2023 8:23 PM - Electronically signed by Balta Jules M.D., D.O. Balta Jules M.D., D.O. MW: JS Report ID: [id number] Reading Location: [id number] Specimen Collected: 10/11/23 20:13 Last Resulted: 10/11/23 20:23 EKG N/A ED COURSE/MEDICAL DECISION MAKING Differential diagnosis included but not limited to UTI, pyelonephritis, kidney stone, STD, viral infection, bacterial infection Swabs, UA and STD testing obtained prior to my shift. I evaluated patient and added labs and CT. Patient refused tylenol stating that he took 1 gram while waiting in the ER. Patient refused US scrotum insisting that he did not have tenderness on exam. Reviewed labs and CT report with patient. Patient arguing with me insisting that there must be something wrong because why he he have body aches and chills with nausea and dysuria. Explained again that his labs and CT were negative and that he will have to follow up with urology. Patient appeared upset that his tests were normal. He will be discharged with premethazie for nausea and a refill of his protonix with urology referral.Patient's medical records were reviewed. Procedures FINAL IMPRESSION Dysuria Viral infection DISPOSITION: Home All findings were discussed with patient. Pt agreeable with plan. Non toxic appearing, vitals stable. Patient stable for discharge home. Given return to ER precautions Close outpatient follow-up with a low threshold to return has been mandated, concerning symptoms have been emphasized in detail, and this patient expresses understanding PATIENT INSTRUCTED TO FOLLOW UP External Order DISCHARGE MEDICATIONS Your medication list START taking these medications Instructions Last Dose Given Next Dose Due pantoprazole DR 20 mg EC tablet Commonly known as: PROTONIX Take 2 tablets (40 mg total) by mouth daily for 20 days CONTINUE taking these medications Instructions Last Dose Given Next Dose Due promethazine 25 mg tablet Commonly known as: PHENERGAN Take 1 tablet (25 mg total) by mouth every 6 (six) hours as needed for nausea or vomiting ASK your doctor about these medications Instructions [...] ounces of fluid, Once a day simethicone 125 mg chewable tablet Commonly known as: MYLICON 125 mg 4 (four) times a day solifenacin 10 mg tablet Commonly known as: VESIcare Take 1 tablet (10 mg total) by mouth daily Where to Get Your Medications You can get these medications from any pharmacy Bring a paper prescription for each of these medications pantoprazole DR 20 mg EC tablet promethazine 25 mg tablet This examination was transcribed using the [employer] voice recognition system without human certified surgical technician. In an effort to expedite patient care, this report has not been adjusted for typographical, grammatical, and syntax by a trained medical collections specialist. Jaimie Johnson NP 10/12/23 0155 Cosigned by Jean Pierre Andrew MD at 10/12/2023 2:02 AM DENSITOMETRIST ITOMETRIST ITOMETRIST Associated attestation - Jean Pierre Andrew MD - 10/12/2023 2:02 AM DENSITOMETRIST ED Attestation I did not see this patient. I was personally available for consultation in the ED for this patient if the Advanced Practice Provider (MARY) needed any assistance. The MARY evaluated the patient independently and completed their own examination, documentation, and disposition. * Silvina Becerril RN - 10/11/2023 3:44 PM CST Pt arrives from home with urinary freq, pain, burning. Pt seen at urgent care last week and finished cipro today. Pt still with chills, shaking, and nausea with above urinary sx. Pt requests STI testing. Denies penile d/c. Reports oral sex. Pt also reports URI sx and request covid/flu testing ITOMETRIST ITOMETRIST ITOMETRIST documented in this encounter Plan of Treatment Scheduled Procedures Name Priority Associated Diagnoses Date/Ti me COLONOSCOPY Open Access Diverticulitis Scheduled Referrals Name Type Priority Associated Diagnoses Order Schedule Ambulatory referral to Urology Outpatient Referral Routine Dysuria Expected: 10/25/2023 (Approximate), Expires: 10/11/2024 documented as of this encounter Procedures Procedure Name Priority Date/Time Associated Diagnosis Comments CT ABDOMEN PELVIS WO CONTRAST ED 10/11/2023 8:04 PM DENSITOMETRIST EGFR STAT 10/11/2023 7:47 PM DENSITOMETRIST DIFFERENTIAL AUTO STAT 10/11/2023 7:4 7 PM DENSITOMETRIST CBC WITH AUTO DIFFERENTIAL STAT 10/11/2023 7:47 PM DENSITOMETRIST COMPREHENSIVE METABOLIC PANEL STAT 10/11/2023 7:47 PM DENSITOMETRIST INFLUENZA A/B, RSV, AND COVID-19 PCR Routine 10/11/2023 4:39 PM DENSITOMETRIST N. GONORRHOEAE/C. TRACHOMATIS AMPLIFICATION STAT 10/11/2023 4:39 PM DENSITOMETRIST TRICHOMONAS VAGINALIS PCR STAT 10/11/2023 4:39 PM DENSITOMETRIST URINALYSIS AND REFLEX TO MICROSCOPIC AND CULTURE STAT 10/11/2023 4:39 PM DENSITOMETRIST URINALYSIS, MICROSCOPIC ONLY STAT 10/11/2023 4:39 PM DENSITOMETRIST documented in this encounter Results * CT Abdomen Pelvis WO Contrast (10/11/2023 8:04 PM DENSITOMETRIST) Anatomical Region Laterality Modality Body N/A Computed Tomogra phy 10/11/2023 8:13 PM DENSITOMETRIST Narrative 10/11/2023 8:23 PM DENSITOMETRIST EXAM DESCRIPTION: ?? CT ABDOMEN PELVIS WO CONTRAST REASON FOR STUDY: ?? Abdominal pain, acute, nonlocalized, lower abdominal pain ?? Pt arrives from home with urinary freq, pain, burning x 4 days. Pt seen at urgent care last week and finished cipro today. Pt still with chills, shaking, and nausea with above urinary sx. Pt requests STI testing. Denies penile d/c. Reports oral sex. Pt ?? also reports URI sx and request covid/flu testing ? TECHNIQUE: CT scan of the abdomen and pelvis performed without intravenous and without ??oral contrast using helical scanning technique. Reconstructed coronal and sagittal MPR images reviewed. All images stored on PACS. Automated exposure control was used as a dose optimization technique for this examination. COMPARISON: ?? CT abdomen and pelvis dated 11/10/2022. REFERENCE: Per ACR white paper recommendations, unless [...] abnormalities. No effusion. LIVER: ?? Normal size. ??Diffusely hypodense. ??No identified cystic or solid masses. GALLBLADDER: ?? Surgically absent. BILE DUCTS: ?? No intrahepatic or extrahepatic ductal dilatation. SPLEEN: ?? Mildly enlarged. ??No focal lesion identified PANCREAS: ?? No identified cystic or solid masses. ??No significant calcifications. No adjacent inflammation or peripancreatic fluid collections. Pancreatic duct not dilated. ADRENALS: ?? Normal. KIDNEYS/URINARY TRACT: ?? No identified significant cystic or solid masses. ?? There is a 5 mm calculus at the superior polar region of the right kidney. ?? There is a 4 mm calculus at the interpolar region there is a 5 mm calculus at the superior polar region of the left kidney. ??No hydronephrosis or ureterolithiasis is evident. ?Urinary bladder is nondistended. GI: ?? There are scattered diverticula within the large bowel without adjacent inflammation to suggest diverticulitis. ??Redemonstration of moderate length segment circumferential wall thickening of the descending colon and proximal sigmoid colon, not significantly changed compared to prior exam. ??The appendix is normal in appearance. ??Small bowel appears within normal limits. PERITONEUM: ?? No ascites or free air. ??There are bilateral inguinal hernias containing only fat, stable compared to prior exam. RETROPERITONEUM: ?? There scattered mildly prominent retroperitoneal lymph nodes, stable compared to prior exam REPRODUCTIVE: ?? No significant abnormality. VASCULATURE: ?? No abdominal aortic aneurysm. MUSCULOSKELETAL: ?? No acute abnormality. OTHER: ?? No other abnormality. IMPRESSION: ?? 1. ?? No acute finding. 2. ?? Nonobstructive nephrolithiasis. 3. ?? Hepatic steatosis. 4. ?? Colonic diverticulosis 5. ?? Stable chronic colonic wall thickening of the descending and proximal sigmoid colon. THIS IS AN ELECTRONICALLY VERIFIED FINAL REPORT 10/11/2023 8:23 PM - Electronically signed by ??Balta Jules M.D., D.O. Balta Jules M.D., D.O. MW: JS D: ??10/11/2023 8:23 PM T: ??10/11/2023 8:23 PM Report ID: [id number] Reading Location: ??[id number] Procedure Note Balta Jules MD - 10/11/2023 EXAM DESCRIPTION: CT ABDOMEN PELVIS WO CONTRAST REASON FOR STUDY: Abdominal pain, acute, nonlocalized, lower abdominalpain Pt arrives from home with urinary freq, pain, burning x 4 days. Pt seen at urgent care last week and finished cipro today. Pt still with chills,shaking, and nausea with above urinary sx. Pt requests STI testing. Denies peniled/c. Reports oral sex. Pt also reports URI sx and request covid/flu testing TECHNIQUE: CT scan of the abdomen and pelvis performed without intravenousand without oral contrast using helical scanning technique. Reconstructed coronal and sagittal MPR images reviewed. All images stored on PACS.Automated exposure control was used as a dose optimization technique for this examination. COMPARISON: CT abdomen and pelvis dated 11/10/2022. REFERENCE: Per ACR white paper recommendations, unless otherwise specifiedno follow-up imaging is recommended for incidental renal and adrenal lesionsper consensus recommendations based on imaging criteria. Further labevaluation could be pursued based on clinical findings. FINDINGS: The sensitivity for detection of visceral lesions is diminished without the use of intravenous contrast. LOWER CHEST: No significant pulmonary abnormalities. No effusion. LIVER: Normal size. Diffusely hypodense. No identified cystic or solid masses. GALLBLADDER: Surgically absent. BILE DUCTS: No intrahepatic or extrahepatic ductal dilatation. SPLEEN: Mildly enlarged. No focal lesion identified PANCREAS: No identified cystic or solid masses. No significant calcifications. No adjacent inflammation or peripancreatic fluidcollections. Pancreatic duct not dilated. ADRENALS: Normal. KIDNEYS/URINARY TRACT: No identified significant cystic or solid masses. There is a 5 mm calculus at the superior polar region of the right kidney. There is a 4 mm calculus at the interpolar region there is a 5 mm calculusat the superior polar region of the left kidney. No hydronephrosis or ureterolithiasis is evident. Urinary bladder is nondistended. GI: There are scattered diverticula within the large bowel withoutadjacent inflammation to suggest diverticulitis. Redemonstration of moderatelength segment circumferential wall thickening of the descending colon andproximal sigmoid colon, not significantly changed compared to prior exam. Theappendix is normal in appearance. Small bowel appears within normal limits. PERITONEUM: No ascites or free air. There are bilateral inguinalhernias containing only fat, stable compared to prior exam. RETROPERITONEUM: There scattered mildly prominent retroperitoneal lymph nodes, stable compared to prior exam REPRODUCTIVE: No significant abnormality. VASCULATURE: No abdominal aortic aneurysm. MUSCULOSKELETAL: No acute abnormality. OTHER: No other abnormality. IMPRESSION: 1. No acute finding. 2. Nonobstructive nephrolithiasis. 3. Hepatic steatosis. 4. Colonic diverticulosis 5. Stable chronic colonic wall thickening of the descending and proximal sigmoid colon. THIS IS AN ELECTRONICALLY VERIFIED FINAL REPORT 10/11/2023 8:23 PM - Electronically signed by Balta Jules M.D., D.O. Balta Jules M.D., D.O. MW: JS Report ID: [id number] Reading Location: [place] [address] Jaimie Johnson NP IMG CT PROCEDURES Final Result * eGFR (10/11/2023 7:47 PM DENSITOMETRIST) eGFR 91 mL/min/1. 73 m2 [facility] Comment: Interpretive [...] was last reviewed 2021. Testing performed by: [address] [address] Blood 10/11/2023 7:47 PM DENSITOMETRIST 10/11/2023 7:50 PM DENSITOMETRIST us Jaimie Johnson [employer] [employer] [facility] BLOOD ORDERABLES Fin al Result [facility] [address] [facility] Department [place] [address] * Differential, auto (10/11/2023 7:47 PM DENSITOMETRIST) Neutrophil abs 4.2 1.5 - 6.5 K/cumm VAL Comment:Testing performed by : [address] [address] Imm gran abs 0.0 0.0 - 0.1 K/cumm VAL Comment:Testing performed by : [address] [address] Lymphocyte abs 1.5 0.8 - 3.3 K/cumm [facility] Comment:Testing performed by : [address] [address] Monocyte abs 0.4 0.2 - 0.8 K/cumm VAL Comment:Testing performed by : [address] [address] Eosinophil abs 0.1 0.0 - 0.5 K/cumm [facility] Comment:Testing performed by : [address] [address] Basophil abs 0.0 0.0 - 0.1 K/cumm [facility] Comment:Testing performed by : [address] [address] Neutrophil pct 67.7 % [facility] Comment: Interpretive Data Percent cell count reference ranges are not reported, since discordance with absolute values may lead to misinterpretation of CBC data. Current Interpretive Data was last revised on 2017. Testing performed by: [address] [address] Imm gran pct 0.2 % [facility] Comment: Interpretive Data Percent cell count reference ranges are not reported, since discordance with absolute values may lead to misinterpretation of CBC data. Current Interpretive Data was last revised on 2017. Testing performed by: [address] [address] Lymphocyte pct 24.3 % [facility] Comment: Interpretive Data Percent cell count reference ranges are not reported, since discordance with absolute values may lead to misinterpretation of CBC data. Current Interpretive Data was last revised on 2017. Testing performed by: [address] [address] Monocyte pct 5.8 % [facility] Comment: Interpretive Data Percent cell count reference ranges are not reported, since discordance with absolute values may lead to misinterpretation of CBC data. Current Interpretive Data was last revised on 2017. Testing performed by: [address] [address] Eosinophil pct 1.5 % [facility] Comment: Interpretive Data Percent cell count reference ranges are not reported, since discordance with absolute values may lead to misinterpretation of CBC data. Current Interpretive Data was last revised on 2017. Testing performed by: [address] [address] Basophil pct 0.5 % [facility] Comment: Interpretive Data Percent cell count reference ranges are not reported, since discordance with absolute values may lead to misinterpretation of CBC data. Current Interpretive Data was last revised on 2017. Testing performed by: [address] [address] Blood 10/11/2023 7:47 PM DENSITOMETRIST 10/11/2023 7:50 PM DENSITOMETRIST us Jaimie Johnson SECTION [employer] LAB BLOOD ORDERABLES Fin al Result VAL [address] [facility] Department [place] [address] * (ABNORMAL) Comprehensive metabolic panel (10/11/2023 7:47 PM DENSITOMETRIST) Sodium 140 135 - 145 mmol/L VAL Comment:Testing performed by : [address] [address] Potassium, pl 3.3 3.3 - 4.9 mmol/L VAL Comment:Testing performed by : [address] [address] Chloride 101 97 - 110 mmol/L VAL Comment:Testing performed by : [address] [address] CO2 26 22 - 32 mmol/L VAL Comment:Testing performed by : [address] [address] Anion gap 13 2 - 15 mmol/L VAL Comment:Testing performed by : [address] [address] BUN 12 6 - 25 mg/dL VAL Comment:Testing performed by : [address] [address] Creatinine 1.00 0.80 - 1.30 mg/dL VAL Comment:Testing performed by : [address] [address] Glucose 93 70 - 199 mg/dL VAL [...] was last revised 2022. Testing performed by: [address] [address] Calcium 8.7 8.5 - 10.3 mg/dL VAL Comment:Testing performed by : [address] [address] Bilirubin, total 1.3(H) 0.1 - 1.2 mg/dL VAL Comment:Testing performed by : [address] [address] Protein, pl 7.7 6.5 - 8.5 g/dL [facility] Comment:Testing performed by : [address] [address] Albumin 4.6 3.5 - 5.0 g/dL [facility] Comment:Testing performed by : [address] [address] Alk phos 64 40 - 130 Units/L VAL Comment:Testing performed by : [address] [address] ALT 37 7 - 55 Units/L [facility] Comment:Testing performed by : [address] [address] AST 37 10 - 50 Units/L [facility] Comment:Testing performed by : [address] [address] Blood 10/11/2023 7:47 PM DENSITOMETRIST 10/11/2023 7:50 PM DENSITOMETRIST us Jaimie Johnson NP LAB BLOOD ORDERABLES Fin al Result [facility] [address] [facility] Department of Laboratories [place], [place] [id number] * (ABNORMAL) CBC with auto differential (10/11/2023 7:47 PM DENSITOMETRIST) [facility] WBC 6.2 3.8 - 9.9 K/cumm VAL Comment:Testing performed by : [address] [address] Hgb 11.4(L) 13.0 - 17.5 g/dL VAL Comment:Testing performed by : [address], [address] Hct 37.2(L) 38.9 - 50.3 % VAL Comment:Testing performed by : [address], [address] Plt 164 150 - 400 K/cumm VAL Comment:Testing performed by : [address], [address] MPV 8.7(L) 9.1 - 12.3 fL VAL Comment:Testing performed by : [address], [address] RBC 5.54 4.30 - 5.80 M/cumm VAL Comment:Testing performed by : [address], [address] MCV 67.1(L) 81.3 - 96.4 fL VAL Comment:Testing performed by : [address] [address] MCH 20.6(L) 27.1 - 33.3 pg VAL Comment:Testing performed by : [address], [address] MCHC 30.6(L) 32.3 - 35.7 g/dL VAL Comment:Testing performed by : [address], [address] RDW CV 18.3(H) 11.1 - 14.9 % VAL Comment:Testing performed by : [address], [address] RDW SD 41.0 35.7 - 48.1 fL VAL Comment:Testing performed by : [address], [address] NRBC abs 0.00 0.00 - 0.01 K/cumm VAL Comment:Testing performed by : [address] [address] Blood 10/11/2023 7:47 PM DENSITOMETRIST 10/11/2023 7:50 PM DENSITOMETRIST Jaimie Johnson SECTION [employer] LAB BLOOD ORDERABLES Fin al Result Performing Organization Address [facility] [[email or web address]] Co de Phone Number VAL [facility] Department [place] [address] * (ABNORMAL) Urinalysis, microscopic only (10/11/2023 4:39 PM DENSITOMETRIST) WBC, ur 0-5 0 - 5 /HPF VAL Comment:Testing performed by : [address] [address] RBC, ur 3-5(A) 0 - 2 /HPF VAL Comment:Testing performed by : [address] [address] Epithelial cells, squamous, ur 6-10(A) 0 - 5 /HPF VAL Comment:Testing performed by : [address] [address] Mucous, ur Present(A) VAL Comment:Testing performed by : [address] [address] Hyaline casts, ur 1-5 0 - 10 /LPF VAL Comment:Testing performed by : [address] [address] Culture Reflex Comment Reflex conditions for urine culture (WBC >10) not met. VAL Comment:Testing performed by : [address] [address] Urine 10/11/2023 4:39 PM DENSITOMETRIST 10/11/2023 4:43 PM DENSITOMETRIST Micki Carrillo DO LAB URINE ORDERABLES Final Resu lt Performing Organization Address [facility] [[email or web address]] Co de Phone Number VAL [facility] Department [place] [address] * Influenza A/B, RSV, and COVID-19 PCR Nasopharyngeal (10/11/2023 4:39 PM DENSITOMETRIST) [facility] COVID-19 RNA Negative Negative VAL Comment:Testing performed by : [address] [address] Influenza A RNA Negative Negative VAL Comment:Testing performed by : [address] [address] Influenza B RNA Negative Negative [facility] Comment:Testing performed by : [address] [address] RSV RNA Negative Negative VAL Comment: Interpretive data: Testing performed by [facility]. This test is performed using the [employer] Xpert Xpress CoV-2/Flu/RSV plus assay. This is a multiplex, real-time reverse transcriptase PCR assay intended for the qualitative detection of nucleic acid from SARS-CoV-2, influenza A, influenza B, and respiratory syncytial virus. This assay has been cleared by the [place] Food and Drug administration. The performance characteristics have been verified by the [facility]. ??Results must be considered in the clinical context, and a negative result does not rule out infection. Interpretive Data last revised 2023 Testing performed by: [address] [address] Nasopharyngeal 10/11/2023 4: 39 PM DENSITOMETRIST 10/11/2023 4:44 PM DENSITOMETRIST Narrative [facility] - 10/11/2023 5:29 PM DENSITOMETRIST Is the Patient experiencing symptoms consistent with COVID?->Yes us Micki Carrillo DO LAB MICROBIOLOGY - GENERAL [place] LEVINE Final Result VAL [facility] Department [place] [address] * Trichomonas vaginalis PCR Urine (10/11/2023 4:39 PM DENSITOMETRIST) [facility] Trichomonas DNA Not Detected Not Detected VAL MULLER Comment: Interpretive Data This assay detects Trichomonas vaginalis by nucleic acid amplification testing (NAAT). This assay has been cleared by the [place] Food and Drug administration. The performance characteristics of this test have been verified by the [facility] Molecular Infectious Disease laboratory. Excess blood in specimens may be inhibitory and result in false negative results. ??The performance of this test has not been evaluated in women or individuals less than 18 years of age. Current Interpretive Data last revised 2023. Testing performed by: [facility], [address] [place]., [address] Urine 10/11/2023 4:39 PM DENSITOMETRIST 10/11/2023 7:12 PM DENSITOMETRIST Micki Carrillo DO LAB MICROBIOLOGY - GENERAL ORDE RABLES Final Result Performing Organization Address City/[facility]/ZIP Co de Phone Number VAL [facility] Department of Laboratories [place], [place] [id number] * N. gonorrhoeae/C. trachomatis Amplification Urine (10/11/2023 4:39 PM DENSITOMETRIST) C. trachomatis Not Detected Not Detected VAL MULLER Comment:Testing performed by : [facility], [address] [place] [address]., [address] N. gonorrhoeae Not Detected Not Detected VAL MULLER Comment: Interpretive Data This assay detects Chlamydia trachomatis and Neisseria gonorrhoeae by nucleic acid amplification testing (NAAT). This assay has been cleared by the [place] Food and Drug administration. The performance characteristics of this test have been verified by the [facility]. The performance characteristics of this test have not been evaluated in individuals less than 14 years of age. Current Interpretive Data last revised 2023. Testing performed by: [facility], [address] [place] [address]., [address] Urine (None) 10/11/2023 4:39 PM DENSITOMETRIST 10/11/2023 4:45 PM DENSITOMETRIST Leora COLLIER LAB MICROBIOLOGY - GENERAL ORDE RABLES Final Result VAL [address] [facility] Department of Laboratories [place], [place] [id number] * (ABNORMAL) Urinalysis reflex to microscopic and culture Urine (10/11/2023 4:39 PM DENSITOMETRIST) Color, ur Yellow Yellow VAL Comment:Testing performed by : [address] [address] Clarity, ur Clear Clear VAL Comment:Testing performed by : [address] [address] Specific gravity, ur 1.041(H) 1.003 - 1.030 VAL Comment:Testing performed by : [address] [address] pH, urine 6.0 VAL Comment: Interpretive Data ? Urine pH is affected by diet, medications, systemic acid-base disturbances, and renal tubular function. ??pH may affect urinary stone formation. ??For example, urine pH below 6.0 may help reduce the tendency for calcium phosphate stones and pH greater than 6.0 may reduce the tendency for uric acid stone formation. Source: [facility] [employer] Current Interpretive Data was last revised on 2017 Testing performed by: [address] [address] Protein, ur ql 1+(A) Negative VAL Comment:Testing performed by : [address] [address] Glucose, ur ql Negative Negative VAL Comment:Testing performed by : [address] [address] Ketones, ur Trace(A) Negative VAL Comment:Testing performed by : [address] [address] Bilirubin, ur 1+(A) Negative VAL Comment:Testing performed by : [address] [address] Blood, ur Negative Negative VAL Comment:Testing performed by : [address] [address] Urobilinogen, ur 4.0(A) <2.0 mg/dL VAL MULLER Comment:Testing performed by : [facility], [address] [place] [address]., [address] Nitrite, ur Negative Negative VAL MULLER Comment:Testing performed by : [address] [address] Leukocyte esterase, ur 1+(A) Negative VAL MULLER Comment:Testing performed by : [address] [address] UA reflex comment Reflex to microscopic UA will be performed. VAL MULLER Comment:Testing performed by : [facility], [address] [place] [address]., [address] Urine 10/11/2023 4:39 PM DENSITOMETRIST 10/11/2023 4:43 PM DENSITOMETRIST us Micki Carrillo DO LAB MICROBIOLOGY - GENERAL [place] LEVINE Final Result VAL [address] [facility] Department [place] [address] documented in this encounter Visit Diagnoses Diagnosis Dysuria- Primary Viral infection documented in this encounter Discontinued Medications Medication Sig Discontinue Reason Start Date End Da te promethazine (PHENERGAN) 25 mg tablet Take 1 tablet (25 mg total) by mouth every 6 (six) hours as needed for nausea or vomiting 05/14/2021 10/11/2023 documented as of this encounter Active and Recently Administered Medications Times are shown in DENSITOMETRIST. Scheduled Medication Order 10/09/2023 10/10/2023 10/11/2023 acetaminophen (TYLENOL) tablet 650 mg 650 mg, oral, Once, On 10/11/23 at 1933, For 1 dose 1946 (Not Given - Pr ovider: Angi Rasheed RN - Reason: Other - Comment: Pt states he took 1G in [place] around 1814) documented in this encounter Orders Medications Ordered That Stevie ht Not Have Been Administered Count Last Ordered Date First Ordered Date acetaminophen (TYLENOL) tablet 650 mg 1 documented in this encounter Care Teams Fire Regulator Relationship Specialty Start Date End Date Unknown, Notinfile PCP - General 01/14/23 01/17/24 Miscellaneous, Not In File 11/16/19 documented as of this encounter
--- OUTSIDE RECORDS SUMMARY | 2024-09-10 04:08 | XMS_ITS | Encounter Summary ---
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 Gender Identity Not on file Sexual Orientation Not on file documented as of this encounter Last Filed Vital Signs Vital Sign Reading Time Taken Comments Blood Pressure 134/85 11/27/2021 2:05 PM CDT Pulse 73 11/27/2021 2:05 PM CDT Temperature 37.1 ??C (98.7 ??F) 11/27/2021 2:05 PM CD T Respiratory Rate 20 11/27/2021 2:05 PM CDT Oxygen Saturation 97% 11/27/2021 2:05 PM CDT Inhaled Oxygen Concentration - - Weight 129.5 kg (285 lb 7.9 oz) 11/27/2021 2:05 PM CDT Height 188 cm (6' 2 ) 11/27/2021 2:05 PM CDT Body Mass Index 36.66 11/27/2021 2:05 PM CDT documented in this encounter Medications at Time of Discharge diphenhydrAMINE (BENADRYL) 25 mg capsule Take 1 [...] 125 mg 4 (four) times a day albuterol HFA (PROVENTIL HFA,VENTOLIN HFA) 90 mcg/actuation inhaler Inhale 2 puffs every 6 hours. 2 ALPRAZolam (XANAX) 2 mg tablet 2 mg Four times daily 06/19/2018 3 atenolol (TENORMIN) 100 mg tabletIndications:E ssential hypertension Take 1 tablet (100 mg total) by mouth daily. 30 tablet 3 03/12/2017 2 cyclobenzaprine (FLEXERIL) 10 mg tablet 10 mg [...] documented in this encounter ED Notes * Elisha Marinelli - 11/27/2021 2:54 PM CDT Patient presents by PV with cc of loose stools x5 days. Patient states he has been waking up anxious with night sweats. Decreased appetite. Patient states that he takes anxiety meds but it's not thathowever he has been more stressed lately. Patient denies blood in stools. 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 Patient states it was benign when last checked. No abd pain. +nausea documented in this encounter Plan of Treatment Scheduled Procedures Name Priority Associated Diagnoses Date/Ti me COLONOSCOPY Open Access Diverticulitis documented as of this encounter Procedures Procedure Name Priority Date/Time Associated Diagnosis Comments EGFR STAT 11/27/2021 3:40 PM CDT DIFFERENTIAL AUTO STAT 11/27/2021 3:4 0 PM CDT URINALYSIS AND REFLEX TO MICROSCOPIC AND CULTURE STAT 11/27/2021 3:40 PM CDT CBC WITH AUTO DIFFERENTIAL STAT 11/27/2021 3:40 PM CDT ABO/RH STAT 11/27/2021 3:40 PM CDT ANTIBODY SCREEN STAT 11/27/2021 3:40 PM CDT HC ANTIBODY SCREEN RBC STAT 2 3:40 PM CDT MAGNESIUM STAT 11/27/2021 3:40 PM CDT COMPREHENSIVE METABOLIC PANEL STAT 11/27/2021 3:40 PM CDT documented in this encounter Results * Magnesium (11/27/2021 3:40 PM CDT) Magnesium 1.6 1.4 - 2.5 mg/dL VAL Blood 11/27/2021 3:40 PM CDT 11/27/2021 3:43 PM CDT us Vick Samaniego NP LAB BLOOD ORDERABLES Final Resul t [facility] [address] [facility] Department [place] [address] * eGFR (11/27/2021 3:40 PM CDT) eGFR 105 mL/min/1. 73 m2 VAL Comment: Interpretive Data Reference Interval Normal ?>/= [...] Current interpretive data was last reviewed 2021. Blood 11/27/2021 3:40 PM CDT 11/27/2021 3:43 PM CDT Johana COLLIER LAB BLOOD ORDERABLES Final Result VAL [address] [facility] [place] [address] * Differential, auto (11/27/2021 3:40 PM CDT) Pathologist [facility] Neutrophil abs 3.4 1.7 - 6.5 K/cumm [facility] Imm gran abs 0.0 0.0 - 0.1 K/cumm [facility] Lymphocyte abs 1.8 0.8 - 3.3 K/cumm [facility] Monocyte abs 0.4 0.2 - 0.8 K/cumm [facility] Eosinophil abs 0.1 0.0 - 0.5 K/cumm [facility] Basophil abs 0.0 0.0 - 0.1 K/cumm [facility] Neutrophil pct 59.7 % [facility] Comment: Interpretive Data Percent cell count reference ranges are not reported, since discordance with absolute values may lead to misinterpretation of CBC data. Current Interpretive Data was last revised on 2017. Imm gran pct 0.2 % [facility] Comment: Interpretive Data Percent cell count reference ranges are not reported, since discordance with absolute values may lead to misinterpretation of CBC data. Current Interpretive Data was last revised on 2017. Lymphocyte pct 30.9 % [facility] Comment: Interpretive Data Percent cell count reference ranges are not reported, since discordance with absolute values may lead to misinterpretation of CBC data. Current Interpretive Data was last revised on 2017. Monocyte pct 6.7 % [facility] Comment: Interpretive Data Percent cell count reference ranges are not reported, since discordance with absolute values may lead to misinterpretation of CBC data. Current Interpretive Data was last revised on 2017. Eosinophil pct 1.8 % [facility] Comment: Interpretive Data Percent cell count reference ranges are not reported, since discordance with absolute values may lead to misinterpretation of CBC data. Current Interpretive Data was last revised on 2017. Basophil pct 0.7 % [facility] Comment: Interpretive Data Percent cell count reference ranges are not reported, since discordance with absolute values may lead to misinterpretation of CBC data. Current Interpretive Data was last revised on 2017. Blood 11/27/2021 3:40 PM CDT 11/27/2021 3:43 PM CDT Johana COLLIER LAB BLOOD ORDERABLES Final Result Performing Organization Address City/[facility] Co de Phone Number [address] [place] [address] * Antibody screen (11/27/2021 3:40 PM CDT) Heather, indirect, Gel Interpretation Negative ABSC [facility] Blood 11/27/2021 3:40 PM CDT 11/27/2021 3:43 PM CDT Narrative [facility] - 11/27/2021 4:51 PM CDT Has the patient had Daratumumab or Isatuximab in the past 6 months?->Unknown Johana COLLIER LAB BLOOD BANK TEST ORDERA BLES Final Result Performing Organization Address [facility] de Phone Number [address] [employer] [address] * ABO/Rh (11/27/2021 3:40 PM CDT) ABO/Rh O Positive [facility] Blood 11/27/2021 3:40 PM CDT 11/27/2021 3:43 PM CDT Narrative [facility] - 11/27/2021 4:51 PM CDT Has the patient had Daratumumab or Isatuximab in the past 6 months?->Unknown [facility] LAB BLOOD BANK TEST ORDERA BLES Final Result Performing Organization Address City/[facility] Co de Phone Number [address] [employer] [address] * Urinalysis reflex to microscopic and culture Urine (11/27/2021 3:40 PM CDT) Pathologist [facility] Color, ur Yellow Yellow [facility] Clarity, ur Clear Clear [facility] Specific gravity, ur 1.014 1.003 - 1.030 [facility] pH, urine 5.0 [facility] Protein, ur ql Negative Negative [facility] Glucose, ur ql Negative Negative [facility] Ketones, ur Negative Negative [facility] Bilirubin, ur Negative Negative [facility] Blood, ur Negative Negative [facility] Urobilinogen, ur <2.0 <2.0 mg/dL [facility] Nitrite, ur Negative Negative [facility] Leukocyte esterase, ur Negative Negative [facility] UA reflex comment Reflex conditions for microscopic UA and culture not met. [facility] Urine 11/27/2021 3:40 PM CDT 11/27/2021 3:43 PM CDT Narrative [facility] - 11/27/2021 3:47 PM CDT ?? Urine pH is affected by diet, medications, systemic acid-base disturbances, and renal tubular function. ??pH may affect urinary stone formation. ??For example, urine pH below 6.0 may help reduce the tendency for calcium phosphate stones and pH greater than 6.0 may reduce the tendency for uric acid stone formation. Source: [facility] [employer]. Last revised 09-23-2017 Johana COLLIER LAB MICROBIOLOGY - GENERAL ORDERABLES Final Result VAL [address] [facility] Department [place] [address] * (ABNORMAL) Comprehensive metabolic panel (11/27/2021 3:40 PM CDT) Pathologist [facility] Sodium 139 135 - 145 mmol/L [facility] Potassium, pl 3.1(L) 3.3 - 4.9 mmol/L [facility] Chloride 101 97 - 110 mmol/L [facility] CO2 27 22 - 32 mmol/L [facility] Anion gap 11 2 - 15 mmol/L [facility] BUN 13 8 - 25 mg/dL [facility] Creatinine 0.90 0.80 - 1.30 mg/dL [facility] Glucose 122 70 - 199 mg/dL [facility] Comment: Interpretive Data Fasting glucose >/= [...] Current interpretive data was last revised 2017. Calcium 9.2 8.5 - 10.3 mg/dL [facility] Bilirubin, total 1.8(H) 0.1 - 1.2 mg/dL [facility] Protein, pl 7.9 6.5 - 8.5 g/dL [facility] Albumin 4.5 3.5 - 5.0 g/dL [facility] Alk phos 72 40 - 130 Units/L [facility] ALT 59(H) 7 - 55 Units/L [facility] AST 67(H) 10 - 50 Units/L [facility] Blood 11/27/2021 3:40 PM CDT 11/27/2021 3:43 PM CDT us Johana COLLIER LAB BLOOD ORDERABLES Final Result [facility] [address] [facility] Department [place] [address] * (ABNORMAL) CBC with auto differential (11/27/2021 3:40 PM CDT) WBC 5.7 3.8 - 9.9 K/cumm [facility] Hgb 12.2(L) 13.0 - 17.5 g/dL [facility] Hct 39.7 38.9 - 50.3 % [facility] Plt 178 150 - 400 K/cumm [facility] MPV 8.8(L) 9.1 - 12.3 fL [facility] RBC 5.60 4.30 - 5.80 M/cumm [facility] MCV 70.9(L) 81.3 - 96.4 fL [facility] MCH 21.8(L) 27.1 - 33.3 pg [facility] MCHC 30.7(L) 32.3 - 35.7 g/dL [facility] RDW CV 16.3(H) 11.1 - 14.9 % [facility] RDW SD 40.1 35.7 - 48.1 fL [facility] NRBC abs 0.00 0.00 - 0.01 K/cumm [facility] Blood 11/27/2021 3:40 PM CDT 11/27/2021 3:43 PM CDT Johana COLLIER LAB BLOOD ORDERABLES Final Result Performing Organization Address City/State/[facility] Co de Phone Number VAL [address] [facility] Department [place] [address] documented in this encounter Visit Diagnoses Not on filedocumented in this encounter Care Teams Panel Laminator Relationship Specialty Start Date End Date No, Physician PCP - General 11/27/21 01/13/23 Miscellaneous, Not In File 11/16/19 documented as of this encounter
--- OUTSIDE RECORDS SUMMARY | 2024-09-10 04:08 | XMS_ITS | Encounter Summary ---
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 Attempted to call patient back three times. No answer. documented in this encounter Plan of Treatment Scheduled Procedures Name Priority Associated Diagnoses Date/Ti me COLONOSCOPY Open Access Diverticulitis documented as of this encounter Visit Diagnoses Not on filedocumented in this encounter Care Teams Ham Sawyer Relationship Specialty Start Date End Date Unknown, Notinfanita PCP - General 05/08/21 11/26/21 Miscellaneous, Not In File 11/16/19 documented as of this encounter
--- OUTSIDE RECORDS SUMMARY | 2024-09-10 04:08 | XMS_ITS | Encounter Summary ---
Author Organization [facility] Address [address] [place] [address] Phone Care Team Providers Care Computer Lab Para Professional Name Role Phone Miscellaneous, Not In File Unavailable Unava ilable Unknown, Notinfile Primary Care Provider Unavail able Encounter Details Date Type Department Care Team (Late st Contact Info) Description 05/20/2021 Telephone [facility] ([facility]) - [facility] Urology [address] 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 I advised him that I would get a message to the doctor and that someone would get back with him with in 24hrs. Patient stated that he would go to [facility] but that he still wanted a message put into Tammy Card ATMOSPHERIC DRIER TENDER as said no to the medication on Wednesday. * Telephone Encounter - Brittany Mosley RN - 05/20/2021 3:16 PM CDT Patient called for GI phone number and abx Contact number for [facility] given patient instructed that urine was negative in office on Wednesday * Telephone Encounter - Chel Orantes MA - 05/20/2021 2:07 PM CDT Pt is requesting call back regarding medication being called out. documented in this encounter Plan of Treatment Scheduled Procedures Name Priority Associated Diagnoses Date/Ti ks COLONOSCOPY Open Access Diverticulitis documented as of this encounter Visit Diagnoses Not on filedocumented in this encounter Care Teams Computer Lab Para Professional Relationship Specialty Start Date End Date Unknown, Notinfile PCP - General 05/08/21 11/26/21 Miscellaneous, Not In File 11/16/19 documented as of this encounter
--- OUTSIDE RECORDS SUMMARY | 2024-09-10 04:08 | XMS_ITS | Encounter Summary ---
Author Organization [facility] Healthcare Address [address] [place] [address] Care Team Providers Care Assistant Clinical Director Name Role Phone Miscellaneous, Not In File Unavailable Unava ilable No, Physician Primary Care Provider [phone] Reason for Visit * Reason Comments Panic Attack Pt has been taking X anax for years. Pt is concerned that he may have withdrawal seizure because he is out of Xanax. He took his last Xanax 1100 Wednesday morning. Pt was examined recently at [facility] ED's for this issue. 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 Gender Identity Not on file Sexual Orientation Not on file documented as of this encounter Last Filed Vital Signs Vital Sign Reading Time Taken Comments Blood Pressure 168/96 11/30/2022 1:46 AM CDT Pulse 65 11/30/2022 1:46 AM CDT Temperature 37.2 ??C (99 ??F) 11/30/2022 1:46 AM CDT Respiratory Rate 18 11/30/2022 1:46 AM CDT Oxygen Saturation 99% 11/30/2022 1:46 AM CDT Inhaled Oxygen Concentration - - Weight 118.4 kg (261 lb) 11/30/2022 1:46 AM CDT Height 188 cm (6' 2 ) 11/30/2022 1:46 AM CDT Body Mass Index 33.51 11/30/2022 1:46 AM CDT documented in this encounter Medications [...] daily for 14 days 30 tablet 09/02/2022 citalopram (CeleXA) 40 mg tablet Take 1 [...] Code Departure Means Destination Comment s Left without being seen documented in this encounter ED Notes * Stanton Gerber RN - 11/30/2022 2:49 AM CDT Pt was provided information to [facility] to be able to possibly initiate new primary care. Checked patient's blood glucose and it was 112. Patient was encouraged to keep his appointment with thephysician he had mentioned on 12/08/2022. He was encouraged to contact [facility] in the morningto get help managing his medications until he could be followed by his new PCP. Patient left with his belongings prior to being able to be examined and evaluated by the ED physician. Stanton Gerber RN 11/30/22 0253 documented in this encounter Plan of Treatment Scheduled Procedures Name Priority Associated Diagnoses Date/Ti me COLONOSCOPY Open Access Diverticulitis documented as of this encounter Procedures Procedure Name Priority Date/Time Associated Diagnosis Comments POCT GLUCOSE DEVICE Routine 11/30/2022 2 :42 AM CDT documented in this encounter Results * (ABNORMAL) POCT glucose (11/30/2022 2:42 AM CDT) [facility] Signature Glucose, POC 112(H) 70 - 110 mg/dL [facility] Blood 11/30/2022 2:42 AM CDT 11/30/2022 2:42 AM CDT us Notinfile Unknown LAB POCT ORDERABLES - DEVICE F inal Result [facility] [address] Department [place] [address] documented in this encounter Visit Diagnoses Not on filedocumented in this encounter Care Teams Assistant Clinical Director Relationship Specialty Start Date End Date No, Physician PCP - General 11/27/21 01/13/23 Miscellaneous, Not In File 11/16/19 documented as of this encounter
--- OUTSIDE RECORDS SUMMARY | 2024-09-10 04:08 | XMS_ITS | Encounter Summary ---
Author Organization [facility] Address [address] [place] [address] Phone Care Team Providers Care Automation Engineering Technician Name Role Phone Miscellaneous, Not In File Unavailable Unava ilable Unknown, Notinfile Primary Care Provider Unavail able Encounter Details Date Type Department Care Team (Late st Contact Info) Description 05/13/2021 Orders Only [facility] Urology [address] [facility] [address] [place] [address] Priscila Crespo, VENTURA [address] [place] [address] Social History Tobacco Use Types Packs/Day Years [...] on file 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 Gender Identity Not on file Sexual Orientation Not on file documented as of this encounter Ordered Prescriptions Prescription Sig Dispense Quantity Refills Last Filled Start Date End Date hyoscyamine (LEVSIN) 0.125 mg tabletIndications: Urinary Incontinence Take 1 tablet (0.125 mg total) by mouth every 4 (four) hours as needed for cramping 30 tablet 05/13/2021 documented in this encounter Plan of Treatment Scheduled Procedures Name Priority Associated Diagnoses Date/Ti me COLONOSCOPY Open Access Diverticulitis documented as of this encounter Visit Diagnoses Not on filedocumented in this encounter Discontinued Medications Medication Sig Discontinue Reason Start Date End Da te hyoscyamine (LEVSIN) 0.125 mg tabletIndications:Urinar y Incontinence Take 1 tablet (0.125 mg total) by mouth every 4 (four) hours as needed for cramping 11/29/2020 05/13/2021 hyoscyamine (LEVSIN) 0.125 mg tabletIndications:Urinar y Incontinence Take 1 tablet (0.125 mg total) by mouth every 4 (four) hours as needed for cramping Reorder 05/09/2021 05/13/2021 documented as of this encounter Care Teams Automation Engineering Technician Relationship Specialty Start Date End Date Unknown, Notinfile PCP - General 05/08/21 11/26/21 Miscellaneous, Not In File 11/16/19 documented as of this encounter
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
--- OUTSIDE RECORDS SUMMARY | 2024-09-10 04:08 | XMS_ITS | Encounter Summary ---
Author Organization [facility] Address [address] [place] [address] Care Team Providers Care Retort Setter Name Role Phone Miscellaneous, Not In File Unavailable Unava ilable Unknown, Notinfile Primary Care Provider Unavail able Encounter Details Date Type Department Care Team (Late st Contact Info) Description 07/02/2021 Telephone [facility] Cardiology [address] [place] [address] Jesus Casillas MD [address] [address] Social History Tobacco Use Types Packs/Day [...] on file 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 Patient last seen 3 years ago and was discharged from the practice can no longer see patient. Explained this to the patient and he stated the last time he was seen was because he went to the ER. Patient stated that he went to the ER last night and needs to be seen now. Patient went to [facility] last night but he stated he left AMA and his EKG showed abnormal but his labs were fine. Told patient to call his PCP and he stated he does not have one. Offered to give him the phone numbers of some PCPs in the area and he refused stating that he would by then and told him if he feels it is urgent to go to the emergency room. documented in this encounter Plan of Treatment Scheduled Procedures Name Priority Associated Diagnoses Date/Ti me COLONOSCOPY Open Access Diverticulitis documented as of this encounter Visit Diagnoses Not on filedocumented in this encounter Care Teams Retort Setter Relationship Specialty Start Date End Date Unknown, Notinfile PCP - General 05/08/21 11/26/21 Miscellaneous, Not In File 11/16/19 documented as of this encounter
--- OUTSIDE RECORDS SUMMARY | 2024-09-10 04:08 | XMS_ITS | Encounter Summary ---
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 Gender Identity Not on file Sexual Orientation Not on file documented as of this encounter Ordered Prescriptions Prescription Sig Dispense Quantity Refills Last Filled Start Date End Date ciprofloxacin (CIPRO) 500 mg tablet Take 1 tablet (500 mg total) by mouth 2 (two) times a day for 5 days 10 tablet 08/22/2021 08/27/2021 ciprofloxacin (CIPRO) 500 mg tablet Take 1 tablet (500 mg total) by mouth 2 (two) times a day for 5 days 10 tablet 08/22/2021 08/22/2021 documented in this encounter Miscellaneous Notes * Addendum Note - Suri Lopez PA - 08/22/2021 4:03 PM CSTAddended by: SURI LOPEZ on: 08/22/2021 04:03 PM Modules accepted: Orders RS ASSEMBLER * Telephone Encounter - Latonia Valdez BS - 08/22/2021 1:47 PM MOTORS ASSEMBLER Pt called wanted to know what our hours are and when should he hear something bk, I checked pt chart AMIRA Lopez, confirmed urine culture for before cont w/Cipro told that to pt, pt state he going to seek another URO. RS ASSEMBLER * Addendum Note - Suri Lopez PA - 08/22/2021 1:31 PM CSTAddended by: SURI LOPEZ on: 08/22/2021 01:31 PM Modules accepted: Orders RS ASSEMBLER * Telephone Encounter - Suri Lopez PA - 08/22/2021 1:30 PM MOTORS ASSEMBLER Message sent to Yessi to let the patient know I have put in an order for a urine culture at [facility] and then he can empirically start cipro after giving a specimen. RS ASSEMBLER * Telephone Encounter - Tierra Sumner - 08/22/2021 9:08 AM CST Pt called wants a RX for cipro. He stated he's having bladder pain, nausea, and freq urination. RS ASSEMBLER documented in this encounter Plan of Treatment Scheduled Procedures Name Priority Associated Diagnoses Date/Ti ma COLONOSCOPY Open Access Diverticulitis documented as of this encounter Visit Diagnoses Diagnosis UTI symptoms- Primary documented in this encounter Discontinued Medications Medication Sig Discontinue Reason Start Date End Da te ciprofloxacin (CIPRO) 500 mg tablet Take 1 tablet (500 mg total) by mouth 2 (two) times a day for 5 days 08/22/2021 08/22/2021 ciprofloxacin (CIPRO) 500 mg tablet 12/02/2020 08/22/2021 documented as of this encounter Care Teams Fisher Trawl Line Relationship Specialty Start Date End Date Unknown, Notinfile PCP - General 05/08/21 11/26/21 Miscellaneous, Not In File 11/16/19 documented as of this encounter
--- OUTSIDE RECORDS SUMMARY | 2024-09-10 04:09 | XMS_ITS | Encounter Summary ---
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 * Telephone Encounter - Nya Webb - 11/27/2020 3:14 PM CDT Called patient, BAKARI to return call regarding his inquiry of the letter he received. * Telephone Encounter - Brigitte Fontaine. - 11/25/2020 3:59 PM CDT Pt called wanting to speak to a supervisor melt house. I advised him that he needed to speak to Nya. Afterseveral times telling him that he would need to speak to Nya, I ended the call. SANDIEI. * Telephone Encounter - Angi Liz LPN - 11/25/2020 3:23 PM CDT I am not sure if patient was dismissed or not. Sending to Packing Attendant for clarification. * Telephone Encounter - Yee Kelly - 11/25/2020 3:04 PM CDT COMPA. Pt called this afternoon asking if we sent him a letter in the mail, stated that where he lives they were having a hard time getting their mail. He then proceeded to ask if we are still his Doctor (Dr. Gamboa) I advised him that He may have received a letter from us for a cancellation notice, He then asked who sent him the letter and why. I advised him that the letter was sent by our manager environmental as a Cancellation notice, He then stated that the fact that his mother dying and that he works and have a job and could not make his scheduled appts. Is probably the reason why we are letting him go., He stated that this was unfair. He then stated that it is okay, there are plenty of Doctor's out there that will be willing to take him. Pt. Tried to deny that he received the letter, which in fact he did because He knew exactly what the letter states., I advised him I do not exactly know in it's entiretywhat all the letter states but from how he was sounding He knew exactly what the letter states, he just wanted to keep going on and on in a roundabout way about his circumstances as I have heard frommy last interactions with him via phone about his personal situations taking care of his children, his mother passing, his challenges with his phone and mail, about his OCD issues and medical issues.I advised him it is better to speak to our manager environmental regarding same, but she is currently out of the office. Pt then hang up or we got disconnected. documented in this encounter Plan of Treatment Scheduled Procedures Name Priority Associated Diagnoses Date/Ti me COLONOSCOPY Open Access Diverticulitis documented as of this encounter Visit Diagnoses Not on filedocumented in this encounter Care Teams Driller'S Assistant Relationship Specialty Start Date End Date Carlos Gamboa MD [address] [place] [address] PCP - General Family Medicine 09/30/20 05/07/21 Miscellaneous, Not In File 11/16/19 documented as of this encounter
--- OUTSIDE RECORDS SUMMARY | 2024-09-10 04:09 | XMS_ITS | Encounter Summary ---
Author Organization [facility] Address [address] [place] [address] Phone Care Team Providers Care Bilingual Instructor Name Role Phone Miscellaneous, Not In File Unavailable Unava ilable Carlos Gamboa MD Primary Care Provid er Encounter Details Date Type Department Care Team (Late st Contact Info) Description 12/10/2020 Telephone [facility] Surgery [address] [facility] [address] [facility] [address] [place] [address] Tammy Goodman FISH NET MAKER [address] [facility] [address] [address] Social History Tobacco Use [...] file 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 There was no answer. I let him know that I had to round at the hospital and likely not able to return his call right away and to call back when he can. documented in this encounter Plan of Treatment Scheduled Procedures Name Priority Associated Diagnoses Date/Ti wy COLONOSCOPY Open Access Diverticulitis documented as of this encounter Visit Diagnoses Not on filedocumented in this encounter Care Teams Bilingual Instructor Relationship Specialty Start Date End Date Carlos Gamboa MD [address] [place] [address] PCP - General Family Medicine 09/30/20 05/07/21 Miscellaneous, Not In File 11/16/19 documented as of this encounter
--- OUTSIDE RECORDS SUMMARY | 2024-09-10 04:09 | XMS_ITS | Encounter Summary ---
Author Organization [facility] Address [address] [place] [address] Phone Care Team Providers Care Dry Transfer Worker Name Role Phone Miscellaneous, Not In File Unavailable Unava Carlos Brown MD Primary Care Provid er Encounter Details Date Type Department Care Team (Late st Contact Info) Description 11/29/2020 Orders Only [facility] Surgery [address] [facility] [facility] [address] [place] [address] Tammy Goodman, HEAD OF IT [address] [facility] [address] [address] Social History Tobacco Use Types Packs/Day Years [...] file 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 Gender Identity Not on file Sexual Orientation Not on file documented as of this encounter Ordered Prescriptions Prescription Sig Dispense Quantity Refills Last Filled Start Date End Date hyoscyamine (LEVSIN) 0.125 mg tabletIndications: Urinary Incontinence Take 1 tablet (0.125 mg total) by mouth every 4 (four) hours as needed for cramping 60 tablet 11/29/2020 1 documented in this encounter Plan of Treatment Scheduled Procedures Name Priority Associated Diagnoses Date/Ti me COLONOSCOPY Open Access Diverticulitis documented as of this encounter Visit Diagnoses Not on filedocumented in this encounter Discontinued Medications Medication Sig Discontinue Reason Start Date End Da te hyoscyamine (LEVSIN) 0.125 mg SL tabletIndications:Urinary Incontinence Take 1 tablet (0.125 mg total) by mouth every 8 (eight) hours as needed for cramping. 03/19/2017 11/29/2020 documented as of this encounter Care Teams Dry Transfer Worker Relationship Specialty Start Date End Date Carlos Gamboa MD [address] [place], [place] [id number] PCP - General Family Medicine 09/30/20 05/07/21 Miscellaneous, Not In File 11/16/19 documented as of this encounter
--- OUTSIDE RECORDS SUMMARY | 2024-09-10 04:09 | XMS_ITS | Encounter Summary ---
Author Organization [facility] Address [address] [place] [address] Phone Care Team Providers Care Charge Machine Operator Name Role Phone Miscellaneous, Not In File Unavailable Unava ilable Carlos Gamboa MD Primary Care Provid er Reason for Visit * Reason Onset Date Comments Appointment 12/18/2020 Encounter Details Date Type Department Care Team (Late st Contact Info) Description 12/18/2020 Telephone [facility] Surgery [address] [facility] [address] [place] [address] Tammy Goodman, COIL ASSEMBLER [address] [facility] [address] [address] Appointment Social History Tobacco Use Types Packs/Day [...] on file 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 Was going to offer 5-5-21 at 2:[address] Forrester. documented in this encounter Plan of Treatment Scheduled Procedures Name Priority Associated Diagnoses Date/Ti or COLONOSCOPY Open Access Diverticulitis documented as of this encounter Visit Diagnoses Not on filedocumented in this encounter Care Teams Charge Machine Operator Relationship Specialty Start Date End Date Carlos Gamboa MD [address] [place] [address] PCP - General Family Medicine 09/30/20 05/07/21 Miscellaneous, Not In File 11/16/19 documented as of this encounter
--- OUTSIDE RECORDS SUMMARY | 2024-09-10 04:09 | XMS_ITS | Encounter Summary ---
Author Organization [facility] Address [address] [place] [address] Phone Care Team Providers Care Laboratory Clerk Name Role Phone Miscellaneous, Not In File Unavailable Unava ilable Carlos Gamboa MD Primary Care Provid er Encounter Details Date Type Department Care Team (Late st Contact Info) Description 11/07/2020 Telephone [facility] Surgery [address] [facility] [address] [place] [address] Tammy Goodman, POWER REACTOR OPERATOR [address] 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 Please follow up with patient. Thank You CUPID ANALYST * Telephone Encounter - Sheryl Hong - 11/08/2020 1:18 PM CST PT called back - please return the call CUPID ANALYST * Telephone Encounter - Leny Gray - 11/07/2020 4:21 PM CST Hello Patient returned call. Please follow up with patient to discuss concerns. Thank You CUPID ANALYST * Telephone Encounter - Tammy Goodman NP - 11/07/2020 4:02 PM CST Attempted to return patient's call. No answer, LVM. CUPID ANALYST documented in this encounter Plan of Treatment Scheduled Procedures Name Priority Associated Diagnoses Date/Ti me COLONOSCOPY Open Access Diverticulitis documented as of this encounter Visit Diagnoses Not on filedocumented in this encounter Care Teams Laboratory Clerk Relationship Specialty Start Date End Date Carlos Gamboa MD [facility] [address] [place] [address] PCP - General Family Medicine 09/30/20 05/07/21 Miscellaneous, Not In File 11/16/19 documented as of this encounter
--- OUTSIDE RECORDS SUMMARY | 2024-09-10 04:09 | XMS_ITS | Encounter Summary ---
Author Organization [facility] Address [address] [place] [address] Phone Care Team Providers Care Graphic Editor Name Role Phone Miscellaneous, Not In File Unavailable Unava ilCarlos Hogan MD Primary Care Provid er Encounter Details Date Type Department Care Team (Late st Contact Info) Description 11/29/2020 Telephone [facility] Surgery [address] 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 I asked him what his symptoms were and told him I would like a urine sample prior to prescribing the abx as he doesn't have history of frequent UTI's and last urine negative. Patient says he is having lower abdominal pain. He reports he cannot come and give a urine sample. I told him lab is open all day today and can come at any time today or tomorrow. Patient then states that he actually thinks this is GI related and is due to mild diverticulitis and needs cipro for this. He states that since I used to work in GI he figured I could give him medication for this. I informed him that I no longer work in GI and do not treat GI. I recommended following with his GI doctor or PCP. Patient reports he has a new patient appointment with GI on Wednesday andneeds this medication before then. I again told him it is not appropriate to prescribe this abx as I no longer work in GI only treat urologic issues. If he feels he has a UTI then I would want a urine sample but patient refused. Patient asked about Levsin refill and states he knows it is used in uro logy and GI. He reports it helps with the lower abdominal pain. He reports he has no refills left of this. I told him I would give refill until his GI appointment but as this is typically off label for urology would not give him any further refills. He needs to see his GI provider and actually showto the appointment so they can further evaluate him. Patient verbalized understanding. To note, patient has long history of non-compliance with medications, office appointments, testing,etc. He schedules, reschedules, and no shows to office appointments frequently. documented in this encounter Plan of Treatment Scheduled Procedures Name Priority Associated Diagnoses Date/Ti me COLONOSCOPY Open Access Diverticulitis documented as of this encounter Visit Diagnoses Not on filedocumented in this encounter Care Teams Graphic Editor Relationship Specialty Start Date End Date Carlos Gamboa MD [facility] [address] [place] [address] PCP - General Family Medicine 09/30/20 05/07/21 Miscellaneous, Not In File 11/16/19 documented as of this encounter
--- OUTSIDE RECORDS SUMMARY | 2024-09-10 04:09 | XMS_ITS | Encounter Summary ---
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 TEGY MANAGER * Telephone Encounter - Angi Liz LPN - 11/13/2020 11:40 AM STRATEGY MANAGER Patient calling today stating that he woke up today from a nap and is feeling sore. He is wanting to know what that may be from. I let him know I am not sure why he is feeling sore. He has an appointment with MD tomorrow that he can discuss. After letting him know he can discuss this with MD tomorrow he stated he had another question. He then asked if he could get COVID tested. I asked what symptoms he was having and he said he is feeling sore like he slept on his arm wrong. I let him know thattypically is not a COVID symptom however I could check with MD then we would need to change his visit to a video visit for tomorrow. He then stated that he had one other question. He asked me what could be causing him to be sore. I let him know again that he needs to speak with the doctor regardingall of the concerns that he has called the office for in the last 2 weeks. I let him know that he has called the office almost everyday with concerns that he has and he has cancelled 9 appointments with MD. I let him know he needs to keep his appointment tomorrow with MD to discuss all of his concer ns. He stated he has a job, he has children he needs to take care of and he will try his best to behere tomorrow as long as Dr. Aquino does not take too long. He stated cancel the request for the COVID test ill see you tomorrow. TEGY MANAGER * Telephone Encounter - Yuridia Charles MD - 11/13/2020 7:20 AM STRATEGY MANAGER Patient called the exchange at to 7:00 a.m. on November 13, 2020. His call was returned promptly. The patient is concerned about his diabetes. He is concerned if he has neuropathy given the pain in his upper and lower extremities. He feels the pain he is having is neuropathy, and that those symptoms are making his anxiety worse. I did let him know he needs to set up an appointment with his primary care provider to review his concerns. He did let me know he has an appointment tomorrow (11/14). I advised him to contact his psychiatrist given his anxiety, and he stated he had an appointment today. I did let him know that there is very little I would be able to do at this hour, but if his pain is sarthak re he can go to the emergency room. He denied any chest pain, shortness of breath, fever, chills, abdominal pain. I did let him know he can call our office in the morning, and we can review his symptoms with his provider. Again, stressed if he having worse pain, he could go to the emergency room. Thank you TEGY MANAGER documented in this encounter Plan of Treatment Scheduled Procedures Name Priority Associated Diagnoses Date/Ti me COLONOSCOPY Open Access Diverticulitis documented as of this encounter Visit Diagnoses Not on filedocumented in this encounter Care Teams Press Machine Operator Relationship Specialty Start Date End Date Carlos Gamboa MD [address] [place] [address] PCP - General Family Medicine 09/30/20 05/07/21 Miscellaneous, Not In File 11/16/19 documented as of this encounter
--- OUTSIDE RECORDS SUMMARY | 2024-09-10 04:09 | XMS_ITS | Encounter Summary ---
Author Organization [facility] Address [address] [place] [address] Phone Care Team Providers Care Powderer Name Role Phone Miscellaneous, Not In File Unavailable Unava ilable Carlos Gamboa MD Primary Care Provid er Reason for Visit * Reason Comments Follow-up * Consultation (Routine) - Canceled Specialty Diagnoses / Procedures Referred By Contac t Referred To Contact Urology Diagnoses Urinary frequency Benign prostatic hyperplasia with weak urinary stream Dysuria Carlos Gamboa MD [address] [place] [address] Phone: tel: fax: Leatha Grier NP Phone: tel: fax: Referral ID Status Reason Start Date Expiration Date Visits Requested Visits Authorized [id number] Canceled Specialty Services Required 10/17/2020 11/16/2021 6 6 Encounter Details Date Type Department Care Team (Late st Contact Info) Description 12/02/2020 11:30 AM CDT Office Visit [facility] Surgery [address] [place] [address] [address] [place] [address] Tammy Goodman NP [address] [facility] [address] [address] Urinary frequency (Primary Dx); Penile pain; Renal calculi; Follow up Social History Tobacco Use Types Packs/Day Years [...] on file 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 Gender Identity Not on file Sexual Orientation Not on file documented as of this encounter Last Filed Vital Signs Vital Sign Reading Time Taken Comments Blood Pressure 149/95 12/02/2020 11:42 AM CDT Pulse 66 12/02/2020 11:42 AM CDT Temperature 36.8 ??C (98.3 ??F) 12/02/2020 11:42 AM C DT Respiratory Rate 16 12/02/2020 11:42 AM CDT Oxygen Saturation 97% 12/02/2020 11:42 AM CDT Inhaled Oxygen Concentration - - Weight 118.8 kg (262 lb) 12/02/2020 11:42 AM CDT Height 188 cm (6' 2 ) 12/02/2020 11:42 AM CDT Body Mass Index 33.64 12/02/2020 11:42 AM CDT documented in this encounter Ordered Prescriptions Prescription Sig Dispense Quantity Refills Last Filled Start Date End Date alfuzosin ER (UROXATRAL) 10 mg 24 hr tablet Take 1 tablet (10 mg total) by mouth daily 30 tablet 5 12/02/2020 documented in this encounter Progress Notes * Tammy Goodman, CDL COMPANY DRIVER - 12/02/2020 11:30 AM CDT Images from the original note were not included. FOLLOW-UP VISIT Chief Complaint Patient presents with ??? Follow-up SUBJECTIVE: HPI: This is a 50 y.o. male with a history of uncontrolled diabetes, history of kidney stones, and anxiety here with complaints of urinary frequency, lower abdominal pain, and penile pain. At a previous appointment, he reports having urinary frequency. He is more concerned about penile pain. He tried the Myrbetriq 25mg without any relief from urinary frequency. His symptoms frequently change and he gives very vague symptoms. He reports he saw a GI provider this morning and has a colonoscopy and EGD planned for 12/27. Patient reports he has history of diverticulitis and has had referred pain to penis from this in the past.He is currently on cipro and flagyl. Penile pain Patient is very difficult to get to focus. I explained that since he has tried multiple medicationsin the past (tamsulosin, vesicare, myrbetriq, oxybuynin) with no results and now penile pain, we may need to consider workup with cytoscopy. Patient states he does not want cystoscopy done. We discussed possibly trying alfuzosin again to see if this will help his pain; however, he was reluctant to try this and states he wanted to find out what was going on. I explained to him that I do not know what is going on based on just his symptoms and would recommend further evaluation which again would bring us to the cystoscopy. He refused again and would like to try the alfuzosin first. He states the OTC Azo does help with his penile pain. I informed him his urine today showed glucose, otherwise unremarkable. He is diabetic and was supposed to see an plate drying machine tender but due to rescheduling and cancelling his new patient appointment too many times, he is now unable to reschedule. He had a scheduled appointment to address his Current Outpatient Medications on File Prior to Visit Medication Sig Dispense Refill ??? albuterol HFA (PROVENTIL HFA,VENTOLIN HFA) 90 mcg/actuation inhaler Inhale 2 puffs every 6 hours. ??? ALPRAZolam (XANAX) 2 mg tablet 2 mg Four times daily ??? atenolol (TENORMIN) 100 mg tablet Take 1 tablet (100 mg total) by mouth daily. 30 tablet 3 ??? cyclobenzaprine (FLEXERIL) 10 mg tablet 10 mg ??? diphenhydrAMINE (BENADRYL) 25 mg capsule Take 25 mg by mouth 2 (two) times a day ??? fluticasone (FLONASE) 50 mcg/actuation nasal spray Administer 2 sprays into each nostril daily.1 spray 3 ??? hyoscyamine (LEVSIN) 0.125 mg tablet Take 1 tablet (0.125 mg total) by mouth every 4 (four) hours as needed for cramping 60 tablet 0 ??? ibuprofen (ADVIL,MOTRIN) 600 mg tablet Take 600 mg by mouth every 6 hours. ??? meclizine (ANTIVERT) 25 mg tablet Take 25 mg by mouth every 12 hours. ??? mirabegron ER (MYRBETRIQ) 25 mg tablet extended release 24 hr Take 1 tablet (25 mg total) by mouth daily 30 tablet 2 ??? omeprazole (PriLOSEC) 40 mg capsule Take 1 capsule (40 mg total) by mouth daily 30 capsule 5 ??? ondansetron ODT (ZOFRAN-ODT) 4 mg disintegrating tablet Take 1 tablet (4 mg total) by mouth daily 15 tablet 0 ??? oxybutynin (DITROPAN) 5 mg tablet Take 1 tablet (5 mg total) by mouth 2 (two) times a day 60 tablet 5 ??? polyethylene glycol (MIRALAX) 17 gram packet daily TAKE: 1 packet mixed with 8 ounces of fluid,Once a day ??? simethicone (MYLICON) 125 mg chewable tablet 125 mg 4 (four) times a day ??? solifenacin (VESIcare) 10 mg tablet Take 1 tablet (10 mg total) by mouth daily 30 tablet 11 ??? ciprofloxacin (CIPRO) 500 mg tablet No current facility-administered medications on file prior to visit. Allergies Allergen Reactions ??? Alum-Mag Hydroxide-Simeth Shortness of breath ??? Clindamycin Anaphylaxis ??? Doxycycline Other (See comments) and Shortness of breath ??? Iodinated Contrast Media Shortness of breath, Hallucinations and Hives IV contrast dye and drink ??? Iodine Hives and Shortness of breath ??? Keflex [Cephalexin] Shortness of breath ??? Lidocaine Shortness of breath ??? Lisinopril Anaphylaxis ??? Losartan Angioedema Swollen lips ??? Sulfasalazine Shortness of breath ??? Sulfur Hives and Shortness of breath ??? Azithromycin Hives and Other (See comments) ??? Carvedilol Hives ??? Clonazepam Dizziness ??? Flavoxate Hives ??? Glimepiride Urticaria ??? Metrizamide Delusions ??? Morphine Hallucinations ??? Nebivolol Swelling lips ??? Pepcid [Famotidine] Hives ??? Sitagliptin Chest tightness ??? Sulfa (Sulfonamide Antibiotics) Hives ??? Sulfamethoxazole-Trimethoprim Hives ??? Uroseptic Ds Rash Panic attack ??? Zyprexa [Olanzapine] Hallucinations ??? Trimethoprim ??? Barium Iodide Dizziness and Other (See comments) ??? Buspar [Buspirone] Dizziness ??? Clonidine Anxiety ??? Codeine Dizziness ??? Dicyclomine Anxiety ??? Hydralazine Mental status changes ??? Levetiracetam Other (See comments) hallucinaton ??? Levofloxacin Flushing (skin) ??? Macrobid [Nitrofurantoin] Unknown ? ? Metformin Nausea & Vomiting Chest pain ??? Ondansetron Unknown ??? Oxycodone Palpitations ??? Paroxetine Hcl Anxiety ??? Toradol [Ketorolac] Nausea only OBJECTIVE: Vitals BP 149/95 (BP Location: Left arm) Pulse 66 Temp 36.8 ??C (98.3 ??F) (Oral) Resp 16 Ht 188 cm (6' 2 ) Wt 118.8 kg (262 lb) SpO2 97% BMI 33.64 kg/m?? Physical Exam Vitals and nursing note reviewed. Constitutional: Appearance: Normal appearance. HENT: Head: Normocephalic. Eyes: Conjunctiva/sclera: Conjunctivae normal. Pulmonary: Effort: Pulmonary effort is normal. Abdominal: Tenderness: There is no abdominal tenderness. There is no right CVA tenderness or left CVA tenderness. Musculoskeletal: Cervical back: Normal range of motion. Skin: General: Skin is warm and dry. Neurological: Mental Status: He is alert and oriented to person, place, and time. Psychiatric: Comments: Depressed mood RESULTS: - I reviewed all pertinent labs, imaging, and procedures. Results for orders placed or performed in visit on 12/02/20 POCT urinalysis dipstick Result Value Ref Range Color, Urine, POC Dark Yellow Clarity, ur, POC Clear Clear Glucose, ur, POC 100. (A) Negative mg/dL Ketones, ur, POC Negative Negative Blood, ur, POC Negative Negative pH, ur, POC 6.0 5.0 - 8.0 Protein, ur, POC 2+ (A) Negative Nitrite, ur, POC Negative Negative Leukocytes, ur, POC Negative Negative Lot Number 0 PLAN: Diagnoses and all orders for this visit: Urinary frequency (Primary) Assessment & Plan: -Failed vesicare, tamsulosin, oxybutynin, Myrbetriq. -UA POCT unremarkable. PLAN: -Start alfuzosin to see if this improves penile pain and frequency. -See either PCP or plate drying machine tender to manage diabetes. -I told patient that if he fails this, we may need to look at further testing for penile pain. Patient verbalized understanding. Penile pain Assessment & Plan: -Penile pain on and off. He does report that this often occurs when he has diverticulitis. He has colonoscopy and EGD on 12/27. PLAN: -Continue OTC Azo as directed. -Will start alfuzosin daily. Renal calculi Assessment & Plan: -He has frequent CT done due to multiple ED visits. This showed 3 small stones (3mm or less). -He had appointment with Dr. Aquino for kidney stones but did not show up. -Patient states that he doesn't think his kidney stones are the issue and reason why he did not show to this appointment. Follow up - POCT urinalysis dipstick Other orders - alfuzosin ER (UROXATRAL) 10 mg 24 hr tablet; Take 1 tablet (10 mg total) by mouth daily Tammy Goodman NP documented in this encounter Miscellaneous Notes * Assessment & Plan Note - Tammy Goodman NP - 12/02/2020 3:23 PM CDTAssociated Problem(s): Penile pain -Penile pain on and off. He does report that this often occurs when he has diverticulitis. He has colonoscopy and EGD on 12/27. PLAN: -Continue OTC Azo as directed. -Will start alfuzosin daily. * Assessment & Plan Note - Tammy Goodman NP - 12/02/2020 3:21 PM CDTAssociated Problem(s): Renal calculi -He has frequent CT done due to multiple ED visits. This showed 3 small stones (3mm or less). -He had appointment with Dr. Aquino for kidney stones but did not show up. -Patient states that he doesn't think his kidney stones are the issue and reason why he did not show to this appointment. * Assessment & Plan Note - Tammy Goodman NP - 12/02/2020 3:16 PM CDTAssociated Problem(s): Urinary frequency -Failed vesicare, tamsulosin, oxybutynin, Myrbetriq. -UA POCT unremarkable. PLAN: -Start alfuzosin to see if this improves penile pain and frequency. -See either PCP or plate drying machine tender to manage diabetes. -I told patient that if he fails this, we may need to look at further testing for penile pain. Patient verbalized understanding. documented in this encounter Plan of Treatment Scheduled Procedures Name Priority Associated Diagnoses Date/Ti me COLONOSCOPY Open Access Diverticulitis documented as of this encounter Procedures Procedure Name Priority Date/Time Associated Diagnosis Comments POCT URINALYSIS DIPSTICK Routine 12/02/2020 11:51 AM CDT Follow up documented in this encounter Results * (ABNORMAL) POCT urinalysis dipstick (12/02/2020 11:51 AM CDT) Color, Urine, POC Dark Yellow Clarity, ur, POC Clear Clear Glucose, ur, POC 100.(A) Negative mg/dL Ketones, ur, POC Negative Negative Blood, ur, POC Negative Negative pH, ur, POC 6.0 5.0 - 8.0 Protein, ur, POC 2+(A) Negative Nitrite, ur, POC Negative Negative Leukocytes, ur, POC Negative Negative Lot Number 0 Urine 12/02/2020 11:5 1 AM CDT Tammy Goodman NP POINT OF CARE TEST ORDERABLES F inal Result documented in this encounter Visit Diagnoses Diagnosis Urinary frequency- Primary Penile pain Unspecified disorder of penis Renal calculi Calculus of kidney Follow up documented in this encounter Historical Medications * This list may reflect changes made after this encounter. Medication Sig Dispense Quantity Refills Last Filled Start D ate End Date ciprofloxacin (CIPRO) 500 mg tablet 12/02/2020 08/22/2021 added in this encounter Care Teams Powderer Relationship Specialty Start Date End Date Carlos Gamboa MD [address] [place] [address] PCP - General Family Medicine 09/30/20 05/07/21 Miscellaneous, Not In File 11/16/19 documented as of this encounter
--- OUTSIDE RECORDS SUMMARY | 2024-09-10 04:09 | XMS_ITS | Encounter Summary ---
Author Organization [facility] Address [address] [place] [address] Care Team Providers Care Lean Specialist Name Role Phone Miscellaneous, Not In File Unavailable Unava ilable Carlos Gamboa MD Primary Care Provid er Encounter Details Date Type Department Care Team (Late st Contact Info) Description 11/06/2020 Orders Only [facility] Family Medicine [address] [address] Carlos Gamboa MD [address] [address] Right flank pain (Primary Dx); Benign neoplasm of sigmoid colon Social History Tobacco Use Types Packs/Day [...] on file 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 Gender Identity Not on file Sexual Orientation Not on file documented as of this encounter Progress Notes * Carlos Gamboa MD - 11/06/2020 4:17 PM CST GI consult (re) placed RACTS REPRESENTATIVE documented in this encounter Plan of Treatment Scheduled Procedures Name Priority Associated Diagnoses Date/Ti ok COLONOSCOPY Open Access Diverticulitis documented as of this encounter Visit Diagnoses Diagnosis Right flank pain- Primary Abdominal pain, unspecified site Benign neoplasm of sigmoid colon documented in this encounter Care Teams Lean Specialist Relationship Specialty Start Date End Date Carlos Gamboa MD [address] [place] [address] PCP - General Family Medicine 09/30/20 05/07/21 Miscellaneous, Not In File 11/16/19 documented as of this encounter
--- OUTSIDE RECORDS SUMMARY | 2024-09-10 04:09 | XMS_ITS | Encounter Summary ---
Author Organization [facility] Address [address] [place] [address] Phone Care Team Providers Care Tie Tamper Name Role Phone Miscellaneous, Not In File Unavailable Unava ilable Carlos Gabmoa MD Primary Care Provid er Encounter Details Date Type Department Care Team (Late st Contact Info) Description 12/09/2020 Telephone [facility] Advanced Medicine ([facility]) - [facility] Urology [address] 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 He would not say why - please return his call * Telephone Encounter - Yolanda Huddleston - 12/09/2020 4:14 PM CDT Pt would like a call back. Pt Would not go into details documented in this encounter Plan of Treatment Scheduled Procedures Name Priority Associated Diagnoses Date/Ti de COLONOSCOPY Open Access Diverticulitis documented as of this encounter Visit Diagnoses Not on filedocumented in this encounter Care Teams Tie Tamper Relationship Specialty Start Date End Date Carlos Gamboa MD [facility] [address] [place] [address] PCP - General Family Medicine 09/30/20 05/07/21 Miscellaneous, Not In File 11/16/19 documented as of this encounter
--- OUTSIDE RECORDS SUMMARY | 2024-09-10 04:09 | XMS_ITS | Encounter Summary ---
Author Organization [facility] Address [address] [place] [address] Phone Care Team Providers Care Porter Head Name Role Phone Miscellaneous, Not In File Unavailable Unava ilable Carlos Gamboa MD Primary Care Provid er Encounter Details Date Type Department Care Team (Late st Contact Info) Description 12/10/2020 Telephone [facility] Surgery [address] [place] [address] Tammy Goodman, ROLL EDGE STITCHER HAND [address] [facility] [address] [address] Social History Tobacco Use Types Packs/Day Years [...] on file 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 documented in this encounter Plan of Treatment Scheduled Procedures Name Priority Associated Diagnoses Date/Ti me COLONOSCOPY Open Access Diverticulitis documented as of this encounter Visit Diagnoses Not on filedocumented in this encounter Care Teams Porter Head Relationship Specialty Start Date End Date Carlos Gamboa MD [address] [place] [address] PCP - General Family Medicine 09/30/20 05/07/21 Miscellaneous, Not In File 11/16/19 documented as of this encounter
--- OUTSIDE RECORDS SUMMARY | 2024-09-10 04:09 | XMS_ITS | Encounter Summary ---
Author Organization [facility] Address [address] [place] [address] Phone Care Team Providers Care Erp Business Analyst Name Role Phone Miscellaneous, Not In File Unavailable Unava Carlos Brown MD Primary Care Provid er Encounter Details Date Type Department Care Team (Late st Contact Info) Description 11/06/2020 Telephone [facility] Advanced [facility] (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 Gender Identity Not on file Sexual Orientation Not on file documented as of this encounter Miscellaneous Notes * Telephone Encounter - Tammy Goodman NP - 11/06/2020 4:38 PM CST DW patient UTE RESOLUTION ANALYST * Telephone Encounter - Luna Rockwell - 11/06/2020 4:01 PM CST Patient called and said his insurance wont cover the medicine that was sent in, he would like a like a callback to discuss what else he can take UTE RESOLUTION ANALYST documented in this encounter Plan of Treatment Scheduled Procedures Name Priority Associated Diagnoses Date/Ti me COLONOSCOPY Open Access Diverticulitis documented as of this encounter Visit Diagnoses Not on filedocumented in this encounter Care Teams Erp Business Analyst Relationship Specialty Start Date End Date Carlos Gamboa MD [address] [place] [address] PCP - General Family Medicine 09/30/20 05/07/21 Miscellaneous, Not In File 11/16/19 documented as of this encounter
--- OUTSIDE RECORDS SUMMARY | 2024-09-10 04:09 | XMS_ITS | Encounter Summary ---
Author Organization [facility] Address [address] [place] [address] Care Team Providers Care Application Integrator Name Role Phone Miscellaneous, Not In File Unavailable Unava ilable Carlos Gamboa MD Primary Care Provid er Reason for Visit * Reason Onset Date Comments Prior Auth Request for Omeprazole 12/24/2020 Encounter Details Date Type Department Care Team (Late st Contact Info) Description 12/24/2020 Telephone [facility] Family Medicine [address] [address] Carlos Gamboa MD [address] [address] Prior Auth Request for Omeprazole Social History Tobacco Use Types Packs/Day Years [...] on file 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 PA not needed. * Telephone Encounter - NavinGely smith - 12/24/2020 3:10 PM CDT Prior Auth Request for Omeprazole received. Scanned to pt chart and given to JKS documented in this encounter Plan of Treatment Scheduled Procedures Name Priority Associated Diagnoses Date/Ti md COLONOSCOPY Open Access Diverticulitis documented as of this encounter Visit Diagnoses Not on filedocumented in this encounter Care Teams Application Integrator Relationship Specialty Start Date End Date Carlos Gamboa MD [address] [place] [address] PCP - General Family Medicine 09/30/20 05/07/21 Miscellaneous, Not In File 11/16/19 documented as of this encounter
--- OUTSIDE RECORDS SUMMARY | 2024-09-10 04:09 | XMS_ITS | Encounter Summary ---
Author Organization [facility] Address [address] [place] [address] Phone Care Team Providers Care Sales Representative Metals Name Role Phone Miscellaneous, Not In File Unavailable Unava Carlos Brown MD Primary Care Provid er Encounter Details Date Type Department Care Team (Late st Contact Info) Description 12/10/2020 Telephone [facility] Surgery [address] [facility] 2nd [place] [address] [place] [id number] Miguel Farfan MD [address] [facility] [address] [place] [address] Social History Tobacco Use Types Packs/Day Years [...] on file 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 Has tried multiple medications and pyridium is the only one that has helped. Today he noted a yellow-orange discoloration to his 3rd and 4th fingers on the left hand. After calling poison control and his pharmacist he was reassured that this is unlikely to be related tothe pyridium, but poison control did state that very high doses could cause skin color changes. He calls to discuss the above concerns and ask for guidance. Reviewed that this side effect seems unlikely as he has only taken two doses over the last two days. As his symptoms are mild at this time and he has significant discomfort from his urinary symptoms I discussed that it is likely safe to continue taking the pyridium. He will monitor his symptoms and discontinue the pyridium if he notes worsening discoloration or additional symptoms. Miguel Farfan MD documented in this encounter Plan of Treatment Scheduled Procedures Name Priority Associated Diagnoses Date/Ti fl COLONOSCOPY Open Access Diverticulitis documented as of this encounter Visit Diagnoses Not on filedocumented in this encounter Care Teams Sales Representative Metals Relationship Specialty Start Date End Date Carlos Gamboa MD [address] [place] [address] PCP - General Family Medicine 09/30/20 05/07/21 Miscellaneous, Not In File 11/16/19 documented as of this encounter
--- OUTSIDE RECORDS SUMMARY | 2024-09-10 04:09 | XMS_ITS | Encounter Summary ---
Author Organization [facility] Address [address] [place] [address] Phone Care Team Providers Care Soccer Player Name Role Phone Miscellaneous, Not In File Unavailable Unava ilable Carlos Gamboa MD Primary Care Provid er Encounter Details Date Type Department Care Team (Late st Contact Info) Description 11/29/2020 Telephone [facility] [address] [place] [address] Tammy Goodman SCREWHEAD POLISHER [address] [facility] [address] [address] Social History Tobacco Use Types [...] on file 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 LVM to call back. documented in this encounter Plan of Treatment Scheduled Procedures Name Priority Associated Diagnoses Date/Ti me COLONOSCOPY Open Access Diverticulitis documented as of this encounter Visit Diagnoses Not on filedocumented in this encounter Care Teams Soccer Player Relationship Specialty Start Date End Date Carlos Gamboa MD [address] [place] [address] PCP - General Family Medicine 09/30/20 05/07/21 Miscellaneous, Not In File 11/16/19 documented as of this encounter
--- OUTSIDE RECORDS SUMMARY | 2024-09-10 04:09 | XMS_ITS | Encounter Summary ---
Author Organization [facility] Address [address] [place] [address] Phone Care Team Providers Care Field Technical Support Consultant Name Role Phone Miscellaneous, Not In File Unavailable Unava ilable Carlos Gamboa MD Primary Care Provid er Encounter Details Date Type Department Care Team (Late st Contact Info) Description 11/11/2020 Telephone [facility] Surgery [address] 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 ITY ASSURANCE TECHNICIAN documented in this encounter Plan of Treatment Scheduled Procedures Name Priority Associated Diagnoses Date/Ti me COLONOSCOPY Open Access Diverticulitis documented as of this encounter Visit Diagnoses Not on filedocumented in this encounter Care Teams Field Technical Support Consultant Relationship Specialty Start Date End Date Carlos Gamboa MD [address] [place] [address] PCP - General Family Medicine 09/30/20 05/07/21 Miscellaneous, Not In File 11/16/19 documented as of this encounter
--- OUTSIDE RECORDS SUMMARY | 2024-09-10 04:09 | XMS_ITS | Encounter Summary ---
Author Organization [facility] Address [address] [place] [address] Phone Care Team Providers Care Valve Pipe Irrigator Name Role Phone Miscellaneous, Not In File Unavailable Unava Carlos Brown MD Primary Care Provid er Encounter Details Date Type Department Care Team (Late st Contact Info) Description 12/09/[address] [facility] Advanced Medicine ([facility]) - [facility] Urology [address] 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 Gender Identity Not on file Sexual Orientation Not on file documented as of this encounter Miscellaneous Notes * Telephone Encounter - Wily Mansfield CMA - 12/09/2020 2:02 PM CDT Would like to speak with Tammy Goodman MEAT AND POULTRY INSPECTOR Stated that he has an issue that he would like to discuss documented in this encounter Plan of Treatment Scheduled Procedures Name Priority Associated Diagnoses Date/Ti me COLONOSCOPY Open Access Diverticulitis documented as of this encounter Visit Diagnoses Not on filedocumented in this encounter Care Teams Valve Pipe Irrigator Relationship Specialty Start Date End Date Carlos Gamboa MD [address] [place] [address] PCP - General Family Medicine 09/30/20 05/07/21 Miscellaneous, Not In File 11/16/19 documented as of this encounter
--- OUTSIDE RECORDS SUMMARY | 2024-09-10 04:09 | XMS_ITS | Encounter Summary ---
Author Organization [facility] Address [address] [place] [address] Phone Care Team Providers Care Storekeeper Engineering Name Role Phone Miscellaneous, Not In File Unavailable Unava ilable Carlos Gamboa MD Primary Care Provid er Encounter Details Date Type Department Care Team (Late st Contact Info) Description 11/29/2020 Telephone [facility]) - [facility] Urology [id number] [place] [address] [place] [address] Luna Rockwell Social History Tobacco [...] on file 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 Gender Identity Not on file Sexual Orientation Not on file documented as of this encounter Miscellaneous Notes * Telephone Encounter - Luna Rockwell - 11/29/2020 11:03 AM CDT Patient called and said he missed call, would like a callback documented in this encounter Plan of Treatment Scheduled Procedures Name Priority Associated Diagnoses Date/Ti me COLONOSCOPY Open Access Diverticulitis documented as of this encounter Visit Diagnoses Not on filedocumented in this encounter Care Teams Storekeeper Engineering Relationship Specialty Start Date End Date Carlos Gamboa MD [address] [place] [address] PCP - General Family Medicine 09/30/20 05/07/21 Miscellaneous, Not In File 11/16/19 documented as of this encounter
--- OUTSIDE RECORDS SUMMARY | 2024-09-10 04:09 | XMS_ITS | Encounter Summary ---
Author Organization [facility] Address [address] [facility] [address] [place] [address] Care Team Providers Care Popcorn Machine Operator Name Role Phone Miscellaneous, Not In File Unavailable Unava Carlos Brown MD Primary Care Provid er Encounter Details Date Type Department Care Team (Late st Contact Info) Description 11/27/2020 Telephone [facility] [address] [place] [address] Krishna Adam MD [address] [place] [address] [address] [place] [address] Social History Tobacco Use Types Packs/Day Years [...] on file 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 * Telephone Encounter - Rimma Fowler - 11/27/2020 10:49 AM CDT Pt called to r/s his BOILER TUBE BLOWER appt w/Kandi today. Per Kandi's request, the pt is not to be r/s'd since he was to be a new patient and no showed his first appt, then r/s'd three times and wanted to r/s a fourth time today. This pt is not to be r/s'd. documented in this encounter Plan of Treatment Scheduled Procedures Name Priority Associated Diagnoses Date/Ti il COLONOSCOPY Open Access Diverticulitis documented as of this encounter Visit Diagnoses Not on filedocumented in this encounter Care Teams Popcorn Machine Operator Relationship Specialty Start Date End Date Carlos Gamboa MD [address] [place] [address] PCP - General Family Medicine 09/30/20 05/07/21 Miscellaneous, Not In File 11/16/19 documented as of this encounter
--- OUTSIDE RECORDS SUMMARY | 2024-09-10 04:09 | XMS_ITS | Encounter Summary ---
Author Organization [facility] Address [address] [facility] [address] [place] [address] Care Team Providers Care Psychologist Experimental Name Role Phone Miscellaneous, Not In File Unavailable Unava ilable Carlos Gamboa MD Primary Care Provid er Encounter Details Date Type Department Care Team (Late st Contact Info) Description 12/09/2020 Orders Only [facility] Family Medicine [address] [id number] Carlos Gamboa MD [address] [address] Non-seasonal allergic rhinitis, unspecified trigger Social History Tobacco Use Types Packs/Day Years [...] on file 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 Gender Identity Not on file Sexual Orientation Not on file documented as of this encounter Ordered Prescriptions Prescription Sig Dispense Quantity Refills Last Filled Start Date End Date fluticasone propionate (FLONASE) 50 mcg/actuation nasal sprayIndications:N on-seasonal allergic rhinitis, unspecified trigger Administer 2 sprays into each nostril daily 1 Inhaler 5 12/09/2020 documented in this encounter Progress Notes * Carlos Gamboa MD - 12/09/2020 2:48 PM CDT Flonase rx sent documented in this encounter Plan of Treatment Scheduled Procedures Name Priority Associated Diagnoses Date/Ti ar COLONOSCOPY Open Access Diverticulitis documented as of this encounter Visit Diagnoses Diagnosis Non-seasonal allergic rhinitis, unspecified trigger documented in this encounter Discontinued Medications Medication Sig Discontinue Reason Start Date End Da te fluticasone (FLONASE) 50 mcg/actuation nasal sprayIndications:Non-se asonal allergic rhinitis, unspecified allergic rhinitis trigger Administer 2 sprays into each nostril daily. Reorder 03/12/2017 12/09/2020 documented as of this encounter Care Teams Psychologist Experimental Relationship Specialty Start Date End Date Carlos Gamboa MD [address] [place] [address] PCP - General Family Medicine 09/30/20 05/07/21 Miscellaneous, Not In File 11/16/19 documented as of this encounter
--- OUTSIDE RECORDS SUMMARY | 2024-09-10 04:09 | XMS_ITS | Encounter Summary ---
Author Organization [facility] Address [address] [place] [address] Phone Care Team Providers Care Development Expert Name Role Phone Miscellaneous, Not In File Unavailable Unava ilable Carlos Gamboa MD Primary Care Provid er Encounter Details Date Type Department Care Team (Late st Contact Info) Description 11/08/2020 Orders Only [facility] Surgery [address] [facility] [address] [place] [address] Tammy Goodman REGIONAL SALES MANAGER [address] [facility] [address] [address] Social History Tobacco Use Types Packs/Day Years [...] on file 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
--- OUTSIDE RECORDS SUMMARY | 2024-09-10 04:09 | XMS_ITS | Encounter Summary ---
Author Organization [facility] Address [address] [facility] [address] [place] [address] Care Team Providers Care Jail Guard Name Role Phone Miscellaneous, Not In File Unavailable Unava ilable Carlos Gamboa MD Primary Care Provid er Encounter Details Date Type Department Care Team (Late st Contact Info) Description 11/07/2020 Orders Only [facility] Medical [facility] Family Medicine [address] [address] Carlos Gamboa MD [address] [address] Type 2 diabetes mellitus with other specified complication, without long-term current use of insulin ([facility]) (Primary Dx) Social History Tobacco Use Types [...] on file 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 Gender Identity Not on file Sexual Orientation Not on file documented as of this encounter Progress Notes * Carlos Gamboa MD - 11/07/2020 11:55 AM CST Endocrinology consult placed ER BEARER documented in this encounter Plan of Treatment Scheduled Procedures Name Priority Associated Diagnoses Date/Ti me COLONOSCOPY Open Access Diverticulitis documented as of this encounter Visit Diagnoses Diagnosis Type 2 diabetes mellitus with other specified complication, without long-term current use of insulin (HCC)- Primary documented in this encounter Care Teams Jail Guard Relationship Specialty Start Date End Date Carlos Gamboa MD [address] [place] [address] PCP - General Family Medicine 09/30/20 05/07/21 Miscellaneous, Not In File 11/16/19 documented as of this encounter
--- OUTSIDE RECORDS SUMMARY | 2024-09-10 04:09 | XMS_ITS | Encounter Summary ---
Author Organization [facility] Address [address] [place] [address] Phone Care Team Providers Care Channel Opener Outsoles Name Role Phone Miscellaneous, Not In File Unavailable Unava Carlos Brown MD Primary Care Provid er Encounter Details Date Type Department Care Team (Late st Contact Info) Description 11/11/2020 Telephone [facility] Advanced [facility] ([facility]) - 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 It may take some time to get this approved though. Thanks! CTOR OF NURSING * Telephone Encounter - Wily Mansfield CMA - 11/11/2020 10:16 AM DIRECTOR OF NURSING Patient needs PA for chaziq through [employer] CTOR OF NURSING documented in this encounter Plan of Treatment Scheduled Procedures Name Priority Associated Diagnoses Date/Ti ak COLONOSCOPY Open Access Diverticulitis documented as of this encounter Visit Diagnoses Not on filedocumented in this encounter Care Teams Channel Opener Outsoles Relationship Specialty Start Date End Date Carlos Gamboa MD [address] [place] [address] PCP - General Family Medicine 09/30/20 05/07/21 Miscellaneous, Not In File 11/16/19 documented as of this encounter
--- OUTSIDE RECORDS SUMMARY | 2024-09-10 04:09 | XMS_ITS | Encounter Summary ---
Author Organization [facility] Address [address] [facility] [address] [place] [address] Care Team Providers Care Heavy Truck Mechanic Name Role Phone Miscellaneous, Not In File Unavailable Unava ilable Carlos Gamboa MD Primary Care Provid er Reason for Visit * Reason Onset Date Comments sinus issues 11/07/2020 Encounter Details Date Type Department Care Team (Late st Contact Info) Description 11/07/2020 Telephone [facility] Family Medicine [address] [address] Carlos Gamboa MD [address] [address] sinus issues Social History Tobacco Use Types Packs/Day Years [...] file 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 Spent 20 minutes on the phone. Pt is requesting flonase [facility] be [facility] to [facility] PRODUCTION ASSOCIATE * Telephone Encounter - Landy Price LPN - 11/07/2020 12:51 PM FOOD PRODUCTION ASSOCIATE Called pt and his phone went directly to . [facility] If the pt calls back he needs a video ER f/u with MD. PRODUCTION ASSOCIATE * Telephone Encounter - Angi Liz LPN - 11/07/2020 11:43 AM FOOD PRODUCTION ASSOCIATE I attempted to reach patient back x4. Phone would not ring or connect. Sat on the phone for 2 min. Called the second number stated the phone is not working number. PRODUCTION ASSOCIATE * Telephone Encounter - Kiana Bello - 11/07/2020 11:09 AM CST Pt went to [facility] recently for chest pain and sinus issues. Was given meds for sinuses but they have not cleared up, still having drainage which irritates his throat. Would like to speak with you about changing meds. Offered to make him an appt with [facility], he declined at this time. PRODUCTION ASSOCIATE PRODUCTION ASSOCIATE documented in this encounter Plan of Treatment Scheduled Procedures Name Priority Associated Diagnoses Date/Ti ar COLONOSCOPY Open Access Diverticulitis documented as of this encounter Visit Diagnoses Not on filedocumented in this encounter Care Teams Heavy Truck Mechanic Relationship Specialty Start Date End Date Carlos Gamboa MD [facility] [address] [place] [address] PCP - General Family Medicine 09/30/20 05/07/21 Miscellaneous, Not In File 11/16/19 documented as of this encounter
--- OUTSIDE RECORDS SUMMARY | 2024-09-10 04:09 | XMS_ITS | Encounter Summary ---
Author Organization [facility] Address [address] [place] [address] Phone Care Team Providers Care City Carrier Name Role Phone Miscellaneous, Not In File Unavailable Unava ilable Carlos Gamboa MD Primary Care Provid er Encounter Details Date Type Department Care Team (Late st Contact Info) Description 12/11/2020 Telephone [facility] Surgery [address] [facility] [address] [place] [address] Tammy Goodman PERFORMANCE SPECIALIST [address] [facility] [address] [address] Social History Tobacco Use Types [...] on file 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 * Telephone Encounter - Tammy Goodman NP - 12/11/2020 9:46 AM CDT Returned patient's call. He reports that a yellowing of a small area of his hand and patient thought it may be the OTC Azo he has been taking which he reports helps his abdominal pain. He had called the after hours number and spoke with one of the urologist. Patient reports he takes this pill twicedaily. The urologist told him it is not likely the Azo as he has had patient's on much higher dosesand this side effect has not occurred. I told him that I also do not think it is related to the Azobut he seemed fixated on the possibility of the Azo causing issues. He reports he also contacted poison control and they didn't feel it was related to the Azo. I told him if he is that fixated and concerned about the Azo causing this, he can stop the medication and see if the yellowing resolved. Omaira stated well it actually has almost cleared up and he didn't want to stop the Azo. I asked about other yellowing of the skin. He denies this and says only in a small part of his hand. When asked why he didn't contact his PCP regarding his hand issue, he said he doesn't have a PCP anymore. It appears he was fired from their practice. Patient started talking about his other complaints like nausea.. I told him the nausea is not likely from urologic causes. He has an EGD/colonoscopy scheduled with Dr. Grijalva in a couple of weeks. Patient then brought up the penile pain again. At the previous appointment, I had recommended a cystoscopy. Patient had stated multiple times that he really didn't want to do that. After multiple times of going in circles about this testing, we agreed finally agreed to see what [facility] EGD/colonoscopy showed first, start him on alfuzosin to see if this would help his symptoms, and schedule a followup. At this follow up, if EGD/colonoscopy did not show explanation of symptoms, we agreed to discuss the cystoscopy again and see how the alfuzosin was working. Today, patient is stating that he really wants to find out what is going on. When I discussed that I had recommended cystoscopy at the last appointment but he had stated he did not want to do this, he denied he ever said this. He states he is fine with doing the cystoscopy and thought this should have been done in the first place. I told him that I agree that we should have scheduled the cystoscopy but with his refusal it was not scheduled. I told him someone will contact him to get this scheduled. documented in this encounter Plan of Treatment Scheduled Procedures Name Priority Associated Diagnoses Date/Ti me COLONOSCOPY Open Access Diverticulitis documented as of this encounter Visit Diagnoses Not on filedocumented in this encounter Care Teams City Carrier Relationship Specialty Start Date End Date Carlos Gamboa MD [address] [place] [address] PCP - General Family Medicine 09/30/20 05/07/21 Miscellaneous, Not In File 11/16/19 documented as of this encounter
--- OUTSIDE RECORDS SUMMARY | 2024-09-10 04:09 | XMS_ITS | Encounter Summary ---
Author Organization [facility] Address [address] [place] [address] Phone Care Team Providers Care Bottle Blower Name Role Phone Miscellaneous, Not In File Unavailable Unava ilCarlos Hogan MD Primary Care Provid er Encounter Details Date Type Department Care Team (Late st Contact Info) Description 12/13/2020 Telephone [facility] Surgery [address] [facility] [address] [place] [address] Tammy Goodman, OCCUPATIONAL THERAPY ASSIST [address] [facility] [address] [id number] Social History Tobacco Use Types Packs/Day Years [...] on file 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 He states he may not be able to get this done as scheduled on 12/25 because his colonoscopy is on 12/27 and he has to do a bowel prep on 12/26. I informed him this should not interfere with the colonoscopy or his bowel prep at all. Patient then asked if there was anything else they could do other than the cystoscopy. I explained to him that based on the number of medications that he has already tried and his continued symptoms (penile pain, pelvic pain, urinary frequency) that we should do this testing to rule out something more serious. He says he was told by the phone center that there was availability for Wednesday, 12/16 for cysto. I told patient that would like be at [facility] or [facility] as we do not have urologist in the clinic on Mondays. Patient says he doesn't want to go to [facility] because his ex works at [employer]. I assured him that he would not likely run into her but then he said she works for urology and doesn't want to run intoher. Patient says he would like to keep the appointment for the cystoscopy on 12/25 and consider bella ging it. I will have our staff contact him to possibly reschedule to another date. documented in this encounter Plan of Treatment Scheduled Procedures Name Priority Associated Diagnoses Date/Ti me COLONOSCOPY Open Access Diverticulitis documented as of this encounter Visit Diagnoses Not on filedocumented in this encounter Care Teams Bottle Blower Relationship Specialty Start Date End Date Carlos Gamboa MD [facility] [address] [place] [address] PCP - General Family Medicine 09/30/20 05/07/21 Miscellaneous, Not In File 11/16/19 documented as of this encounter
--- OUTSIDE RECORDS SUMMARY | 2024-09-10 04:09 | XMS_ITS | Encounter Summary ---
Author Organization [facility] Address [address] [place] [address] Phone Care Team Providers Care Steam Box Hand Name Role Phone Miscellaneous, Not In File Unavailable Unava ilable Carlos Gamboa MD Primary Care Provid er Encounter Details Date Type Department Care Team (Late st Contact Info) Description 11/29/2020 Telephone [facility] - [facility] Urology [address] [facility] 11th [place] [address] [place] [address] Tammy Goodman, WATER CONSERVATIONIST [address] [facility] [address] [address] Social History Tobacco Use Types Packs/Day Years [...] on file 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 This is his second * Telephone Encounter - Yolanda Huddleston - 11/29/2020 8:02 AM CDT Pt called believes he have a uti. Pt would like a call back documented in this encounter Plan of Treatment Scheduled Procedures Name Priority Associated Diagnoses Date/Ti dc COLONOSCOPY Open Access Diverticulitis documented as of this encounter Visit Diagnoses Not on filedocumented in this encounter Care Teams Steam Box Hand Relationship Specialty Start Date End Date Carlos Gamboa MD [address] [place] [address] PCP - General Family Medicine 09/30/20 05/07/21 Miscellaneous, Not In File 11/16/19 documented as of this encounter
--- OUTSIDE RECORDS SUMMARY | 2024-09-10 04:09 | XMS_ITS | Encounter Summary ---
Author Organization [facility] Address [address] [place] [address] Phone Care Team Providers Care Edi Specialist Name Role Phone Miscellaneous, Not In File Unavailable Unava ilable Carlos Gamboa MD Primary Care Provid er Reason for Visit * Reason Onset Date Comments Appointment 12/11/2020 Encounter Details Date Type Department Care Team (Late st Contact Info) Description 12/11/2020 Telephone [facility] Surgery [address] [facility] [address] [place] [address] Tammy Goodman, CLINICAL EDUCATION ASSISTANT [address] [facility] [address] [address] Appointment Social History Tobacco Use Types Packs/Day [...] on file 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 Forrester on December 25 2020 [facility] [address] (Urology) documented in this encounter Plan of Treatment Scheduled Procedures Name Priority Associated Diagnoses Date/Ti ne COLONOSCOPY Open Access Diverticulitis documented as of this encounter Visit Diagnoses Not on filedocumented in this encounter Care Teams Edi Specialist Relationship Specialty Start Date End Date Carlos Gamboa MD [address] [place] [address] PCP - General Family Medicine 09/30/20 05/07/21 Miscellaneous, Not In File 11/16/19 documented as of this encounter
--- OUTSIDE RECORDS SUMMARY | 2024-09-10 04:09 | XMS_ITS | Encounter Summary ---
Author Organization [facility] Address [address] [place] [address] Phone Care Team Providers Care Medicaid Business Analyst Name Role Phone Miscellaneous, Not In File Unavailable Unava ilCarlos Hogan MD Primary Care Provid er Encounter Details Date Type Department Care Team (Late st Contact Info) Description 11/08/2020 Telephone [facility] Surgery [address] [facility] [address] [place] [address] Tammy Goodman, WOOL SACKER [address] [facility] [address] [address] Social History Tobacco Use Types [...] on file 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 He states that 2 hours after he started the oxybutynin 5mg he states he felt like he was feeling confused and almost like a hallucination. He said it also dried him out. Instructed to take Vesicare and avoid bladder irritants. We discussed importance of giving medication a chance to work, that he cannot just take 1-2 doses and expect results. Pt verbalized understanding. ERED SUGAR PULVERIZER OPERATOR documented in this encounter Plan of Treatment Scheduled Procedures Name Priority Associated Diagnoses Date/Ti me COLONOSCOPY Open Access Diverticulitis documented as of this encounter Visit Diagnoses Not on filedocumented in this encounter Care Teams Medicaid Business Analyst Relationship Specialty Start Date End Date Carlos Gamboa MD [facility] [address] [place] [address] PCP - General Family Medicine 09/30/20 05/07/21 Miscellaneous, Not In File 11/16/19 documented as of this encounter
--- OUTSIDE RECORDS SUMMARY | 2024-09-10 04:09 | XMS_ITS | Encounter Summary ---
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 NE COMPRESSOR OPERATOR NE COMPRESSOR OPERATOR * Telephone Encounter - Puja Calero - 11/08/2020 10:26 AM CST PURCHASER for DM2 Please schedule with Kandi or Dr. Adam LMOM 11/08/20 mkr NE COMPRESSOR OPERATOR documented in this encounter Plan of Treatment Scheduled Procedures Name Priority Associated Diagnoses Date/Ti nc COLONOSCOPY Open Access Diverticulitis documented as of this encounter Visit Diagnoses Not on filedocumented in this encounter Care Teams Chronometer Repairer Relationship Specialty Start Date End Date Carlos Gamboa MD [address] [place] [address] PCP - General Family Medicine 09/30/20 05/07/21 Miscellaneous, Not In File 11/16/19 documented as of this encounter
--- OUTSIDE RECORDS SUMMARY | 2024-09-10 04:09 | XMS_ITS | Encounter Summary ---
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 Please move pt up in schedule or r/s if pt calls. LE DRIVER documented in this encounter Plan of Treatment Scheduled Procedures Name Priority Associated Diagnoses Date/Ti me COLONOSCOPY Open Access Diverticulitis documented as of this encounter Visit Diagnoses Not on filedocumented in this encounter Care Teams Junior Recruiter Relationship Specialty Start Date End Date Carlos Gamboa MD [address] [place] [address] PCP - General Family Medicine 09/30/20 05/07/21 Miscellaneous, Not In File 11/16/19 documented as of this encounter
--- OUTSIDE RECORDS SUMMARY | 2024-09-10 04:09 | XMS_ITS | Encounter Summary ---
Author Organization [facility] Address [address] [place] [address] Phone Care Team Providers Care Outside Industrial Sales Representative Name Role Phone Miscellaneous, Not In File Unavailable Unava ilCarlos Hogan MD Primary Care Provid er Encounter Details Date Type Department Care Team (Late st Contact Info) Description 11/07/[address] 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 He reports that he is having a new symptom today that he wasn't having yesterday that he wants to talk to you about. He didn't seem to want to share what this symptom was with me. He stated that he was very impressed with his visit yesterday, that you are exceptional and very knowledgeable. He also mentioned that he fired his endo today due to a misunderstanding on his appt time and they told him they are the only office around . He said he got a new referral from his PCP and has an appt with a new endo in a few weeks. AIR CONDITIONING MECHANIC documented in this encounter Plan of Treatment Scheduled Procedures Name Priority Associated Diagnoses Date/Ti me COLONOSCOPY Open Access Diverticulitis documented as of this encounter Visit Diagnoses Not on filedocumented in this encounter Care Teams Outside Industrial Sales Representative Relationship Specialty Start Date End Date Carlos Gamboa MD [address] [place] [address] PCP - General Family Medicine 09/30/20 05/07/21 Miscellaneous, Not In File 11/16/19 documented as of this encounter
--- OUTSIDE RECORDS SUMMARY | 2024-09-10 04:09 | XMS_ITS | Encounter Summary ---
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 O INSTRUCTOR * Telephone Encounter - Angi Liz LPN - 11/13/2020 9:08 AM PIANO INSTRUCTOR Nya, can you please do this? Thank you. O INSTRUCTOR * Telephone Encounter - Natalia Pemberton - 11/13/2020 7:04 AM CST I do not know how to do these. O INSTRUCTOR * Telephone Encounter - Angi Liz LPN - 11/12/2020 4:10 PM PIANO INSTRUCTOR Natalia do you know how to do this? O INSTRUCTOR * Telephone Encounter - Carlos Gamboa MD - 11/12/2020 3:31 PM PIANO INSTRUCTOR Let's send him the initial no-show/late cancellation letter, please O INSTRUCTOR * Telephone Encounter - Angi Liz LPN - 11/12/2020 8:34 AM PIANO INSTRUCTOR Patient called and cancelled his appointment today and rescheduled . At this time he has noshowed 1 time and cancelled 9 appointments since he established O INSTRUCTOR * Telephone Encounter - Angi Liz LPN - 11/11/2020 8:42 AM PIANO INSTRUCTOR When speaking with patient last week pt declined an early appointment stating he can not do an appointment early in the morning. Appointment was made in the afternoon open spot to see MD. I am not sure where the confusion came from. O INSTRUCTOR * Telephone Encounter - Yee Kelly - 11/11/2020 8:17 AM CST Pt called and stated that he was in the O parking lot at 6:30am thinking his appt was at 7:30am. When in fact his appt for transition of care from ER visit at 1:00pm 11-11-20. He was upset and stated that Ms. Whitley Scheduled it for early in the morning and He will not be able to make the afternoon appt. Because he has a meeting with his mold technician. Pt. Re-scheduled for 11-12-2020. O INSTRUCTOR documented in this encounter Plan of Treatment Scheduled Procedures Name Priority Associated Diagnoses Date/Ti me COLONOSCOPY Open Access Diverticulitis documented as of this encounter Visit Diagnoses Not on filedocumented in this encounter Care Teams Research And Development Chemist Relationship Specialty Start Date End Date Carlos Gamboa MD [address] [place] [address] PCP - General Family Medicine 09/30/20 05/07/21 Miscellaneous, Not In File 11/16/19 documented as of this encounter
--- OUTSIDE RECORDS SUMMARY | 2024-09-10 04:09 | XMS_ITS | Encounter Summary ---
Author Organization [facility] Address [address] [facility] [address] [place] [address] Care Team Providers Care Appliance Mechanic Name Role Phone Miscellaneous, Not In File Unavailable Unava ilable Carlos Gamboa MD Primary Care Provid er Reason for Visit * Reason Onset Date Comments Med Refill 12/03/2020 Med Refill 12/09/2020 Encounter Details Date Type Department Care Team (Late st Contact Info) Description 12/03/2020 Telephone [facility] Family Medicine [address] [address] Carlos Gamboa MD [address] [address] Med Refill; Med Refill Social History Tobacco Use Types Packs/Day [...] on file 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 [facility] [phone] Thanks huseyin * Telephone Encounter - Nya Gil MA - 12/03/2020 2:29 PM CDT Pt is requesting refill for Fluticasone 50 mcg spray [facility] pharmacy sent a refill request because a urgent care prescribed it first and they want a new script documented in this encounter Plan of Treatment Scheduled Procedures Name Priority Associated Diagnoses Date/Ti me COLONOSCOPY Open Access Diverticulitis documented as of this encounter Visit Diagnoses Not on filedocumented in this encounter Care Teams Appliance Mechanic Relationship Specialty Start Date End Date Carlos Gamboa MD [facility] [address] [place] [address] PCP - General Family Medicine 09/30/20 05/07/21 Miscellaneous, Not In File 11/16/19 documented as of this encounter
--- OUTSIDE RECORDS SUMMARY | 2024-09-10 04:10 | XMS_ITS | Encounter Summary ---
Author Organization [facility] Healthcare Address [address] [place] [id number] Care Team Providers Care Safety Assistant Name Role Phone Miscellaneous, Not In File Unavailable Unava Carlos Brown MD Primary Care Provid er Encounter Details Date Type Department Care Team (Late st Contact Info) Description 10/07/2020 6:11 PM REGIONAL ACCOUNT DIRECTOR - 10/08/2020 12:[address] [facility] Emergency [address] [phone] Unknown, Corrina Jackson MD [address] [place] [address] [place] [address] Discharge Disposition: Discharge to home or self [...] on file Legal Sex Male 1:40 AM REGIONAL ACCOUNT DIRECTOR Gender Identity Not on file Sexual Orientation Not on file documented as of this encounter Last Filed Vital Signs Vital Sign Reading Time Taken Comments Blood Pressure 141/91 10/07/2020 6:24 PM REGIONAL ACCOUNT DIRECTOR Pulse 85 10/07/2020 6:24 PM REGIONAL ACCOUNT DIRECTOR Temperature 35.9 ??C (96.6 ??F) 10/07/2020 6:24 PM CS T Respiratory Rate - - Oxygen Saturation 97% 10/07/2020 6:24 PM REGIONAL ACCOUNT DIRECTOR Inhaled Oxygen Concentration - - Weight 106.6 kg (235 lb) 10/07/2020 6:24 PM REGIONAL ACCOUNT DIRECTOR Height 188 cm (6' 2 ) 10/07/2020 6:24 PM REGIONAL ACCOUNT DIRECTOR Body Mass Index 30.17 10/07/2020 6:24 PM REGIONAL ACCOUNT DIRECTOR documented in this encounter Medications at Time of Discharge ibuprofen (ADVIL,MOTRIN) 600 mg tablet Take 1 tablet (600 mg total) by mouth every 6 hours 10/30/2016 meclizine (ANTIVERT) 25 mg tablet Take 1 tablet (25 mg total) by mouth every 12 hours albuterol HFA (PROVENTIL HFA,VENTOLIN HFA) 90 mcg/actuation inhaler Inhale 2 puffs every 6 hours. 2 ALPRAZolam (XANAX) 1 mg tabletIndications:P anic Disorder Take 1 tablet (1 mg total) by mouth every 6 (six) hours as needed for anxiety 14 tablet 01/21/2020 1 ALPRAZolam (XANAX) 2 mg tablet Take 1 tablet (2 mg total) by mouth 3 (three) times a day as needed for anxiety 21 tablet 11/21/2019 1 ALPRAZolam (XANAX) 2 mg tablet 2 mg Four times daily 06/19/2018 3 amoxicillin (AMOXIL) 875 mg tablet Take 875 mg by mouth 2 (two) times a day. 04/27/2018 1 atenolol (TENORMIN) 100 mg tabletIndications:E ssential hypertension Take 1 tablet (100 mg total) by mouth daily. 30 tablet 3 03/12/2017 2 atenolol (TENORMIN) 100 mg tablet Take 1 tablet (100 mg total) by mouth daily for 20 doses 20 tablet 03/17/2019 1 atenoloL (TENORMIN) 100 mg tablet Take 100 mg by mouth daily 09/22/2019 1 azelastine (ASTELIN) 137 mcg (0.1 %) nasal spray Administer 1 spray into each nostril 2 (two) times a day. Use in each nostril as directed 30 mL 2 04/29/2018 1 bisacodyl EC (DULCOLAX EC) 5 mg EC tablet Take 4 tablets at 7pm day before procedure 4 tablet 06/30/2017 1 chlordiazePOXIDE (LIBRIUM) 25 mg capsule Take 1 capsule (25 mg total) by mouth 4 (four) times a day as needed for anxiety 20 capsule 11/02/2019 1 citalopram (CeleXA) 40 mg tabletIndications:R ecurrent major depressive disorder, in partial remission (HCC) Take 40 mg by mouth daily. 02/25/2017 1 citalopram (CeleXA) 40 mg tablet Take 1 tablet (40 mg total) by mouth daily for 20 days 20 tablet 03/17/2019 1 cyclobenzaprine (FLEXERIL) 10 mg tablet 10 mg 06/19/2018 4 diazePAM (VALIUM) 5 mg tablet Take 1 tablet (5 mg total) by mouth every 12 (twelve) hours as needed for anxiety. 3 tablet 04/22/2018 1 escitalopram (LEXAPRO) 20 mg tablet Take 1 tablet (20 mg total) by mouth daily. 3 tablet 09/15/2017 1 escitalopram (LEXAPRO) 20 mg tablet Take 1 tablet (20 mg total) by mouth daily 30 tablet 01/14/2019 1 fluticasone (FLONASE) 50 mcg/actuation nasal sprayIndications:No n-seasonal allergic rhinitis, unspecified allergic rhinitis trigger Administer 2 sprays into each nostril daily. 1 spray 3 03/12/2017 1 fluticasone propionate (FLONASE) 50 mcg/actuation nasal spray Administer 1 spray into each nostril daily 16 g 11/02/2019 1 fluticasone propionate (FLONASE) 50 mcg/actuation nasal spray USE 2 SPRAY(S) IN EACH NOSTRIL ONCE DAILY 10/05/2019 1 hyoscyamine (LEVSIN) 0.125 mg SL tabletIndications:U rinary Incontinence Take 1 tablet (0.125 mg total) by mouth every 8 (eight) hours as needed for cramping. 20 tablet 03/19/2017 1 olopatadine (PATANOL) 0.1 % ophthalmic solutionIndications :Allergic Conjunctivitis Administer 1 drop into the right eye 2 (two) times a day 5 mL 11/21/2019 1 olopatadine 0.6 % spray,non-aerosol Administer 2 sprays into affected nostril(s) 2 (two) times a day. 1 Bottle 1 04/29/2018 1 omeprazole (PriLOSEC) 20 mg capsule Take 2 capsules (40 mg total) by mouth daily 30 capsule 01/14/2019 1 omeprazole (PriLOSEC) 40 mg capsule Take 1 capsule (40 mg total) by mouth daily. 30 capsule 3 03/15/2017 1 omeprazole (PriLOSEC) 40 mg capsule TAKE 1 CAPSULE BY MOUTH ONCE DAILY BEFORE BREAKFAST 09/22/2019 1 ondansetron (ZOFRAN) 4 mg tablet Take 4 mg by mouth every 8 (eight) hours 09/27/2020 1 polyethylene glycol (GoLYTELY) 236-22.74-6.74 -5.86 gram solutionIndications :Bowel Evacuation Mix Golytely with water and begin drinking at 4pm and finish all solution by midnight day before procedure 4000 mL 06/30/2017 1 promethazine (PHENERGAN) 25 mg tablet Take 25 mg by mouth every 6 hours. 07/17/2016 1 pseudoephedrine-gua ifenesin 120-1,200 mg tablet extended release 12 hr Take 1 tablet by mouth 2 (two) times a day. 20 each 04/29/2018 1 raNITIdine (ZANTAC) 150 mg tablet Take 150 mg by mouth daily. 1 sodium, potassium & mag sulfates (SUPREP BOWEL KIT) 17.5-3.13-1.6 gram recon solnIndications:Brandon el Evacuation Mix bottle of Suprep with water and drink at 4pm, repeat and drink at 10pm day before procedure 354 mL 06/25/2017 1 documented as of this encounter Discharge Disposition Disposition Code Departure Means Destination Discharge to home or self care documented in this encounter Plan of Treatment Scheduled Procedures Name Priority Associated Diagnoses Date/Ti sd COLONOSCOPY Open Access Diverticulitis documented as of this encounter Procedures Procedure Name Priority Date/Time Associated Diagnosis Comments CBC WITH AUTO DIFFERENTIAL Routine 10/07/2020 7:39 PM REGIONAL ACCOUNT DIRECTOR TROPONIN I Routine 10/07/2020 7:39 PM REGIONAL ACCOUNT DIRECTOR LIPASE Routine 10/07/2020 7:39 PM REGIONAL ACCOUNT DIRECTOR COMPREHENSIVE METABOLIC PANEL Routine 10/07/2020 7:39 PM REGIONAL ACCOUNT DIRECTOR ECG 12-LEAD 10/07/2020 7:20 PM REGIONAL ACCOUNT DIRECTOR URINALYSIS, COMPLETE Routine 10/07/2020 7:16 [address] ABDOMEN PELVIS WO CONTRAST 10/07/2020 7:10 PM REGIONAL ACCOUNT DIRECTOR documented in this encounter Results * Lipase (10/07/2020 7:39 PM REGIONAL ACCOUNT DIRECTOR) Pathologist [facility] [place] Lipase 36 13 - 60 U/L [facility] 10/07/2020 7:39 PM REGIONAL ACCOUNT DIRECTOR 10/07/2020 7:43 PM REGIONAL ACCOUNT DIRECTOR Narrative Resulting Agency Comment ER us Iris COLLIER LAB BLOOD ORDERABLES Final Re sult [address] [place] [address], [facility] [phone] * (ABNORMAL) Comprehensive metabolic panel (10/07/2020 7:39 PM REGIONAL ACCOUNT DIRECTOR) Pathologist [facility] [place] Sodium 137 135 - 145 mmol/L [facility] Potassium 3.5 3.3 - 5.1 mmol/L [facility] Chloride 101 96 - 108 mmol/L [facility] Carbon Dioxide 27 22 - 32 mmol/L [facility] Anion Gap 9 7 - 16 [facility] Glucose 119(H) 70 - 100 mg/dL [facility] BUN 12 8 - 25 mg/dL [facility] Creatinine 0.7 0.5 - 1.3 mg/dL [facility] Comment: NOTE: Estimated GFR (Cockroft-Gault) will NOT be calculated unless patient Height and Weight were entered. Also, Kidney Disease Stage (GFR) and Estimated GFR (Cockroft-Gault) will NOT be calculated if Creatinine result is <0.2. Kidney Disease Stage >90 mL/MIN [facility] Comment: NOTE; ??The GFR is an estimated value using the creatinine, sex, age, and race of the patient. THE Estimated Kidney Disease GFR is validated for AGES 18-70 YEARS STAGE ?mL/Min ?DESCRIPTION ??1 ?90 mL/min or more ?Normal or elevated GFR ??2 ? 60-89 mL/min ?Mildly decreased GFR ??3 ? 30-59 mL/min ?Moderately decreased GFR ??4 ? 15-29 mL/min ?Severely decreased GFR ??5 ? <15 mL/min ? Kidney failure or on dialysis Est GFR (Cockcroft-G) 168 ml/MIN [facility] Comment: Estimated GFR(Cockroft-Gault)is used to calculate patient medication dosage Calcium 9.5 8.6 - 10.3 mg/dL [facility] Total Protein 8.1 6.4 - 8.3 g/dL [facility] Albumin 4.6 3.5 - 5.0 g/dL [facility] Globulin 3.5 2.3 - 3.5 gm/dL [facility] Albumin/Globulin Ratio 1.3 1.1 - 1.8 [facility] Total Bilirubin 1.5(H) 0.0 - 1.2 mg/dL [facility] AST 83(H) 0 - 40 U/L [facility] ALT 75(H) 0 - 41 U/L [facility] Alkaline Phosphatase 72 40 - 129 U/L [facility] 10/07/2020 7:39 PM REGIONAL ACCOUNT DIRECTOR 10/07/2020 7:43 PM REGIONAL ACCOUNT DIRECTOR Narrative Resulting Agency Comment ER Iris COLLIER LAB BLOOD ORDERABLES Final Re sult Performing Organization Address [facility] [place] [address], [facility] [phone] * Troponin I (10/07/2020 7:39 PM REGIONAL ACCOUNT DIRECTOR) Pathologist [facility] [place] Troponin I <0.300 0.000 - 0.300 ng/mL [facility] Comment: Reference using MARCK Chemiluminescence ? Negative: Repeat in 4-6 hours as indicated. 10/07/2020 7:39 PM REGIONAL ACCOUNT DIRECTOR 10/07/2020 7:43 PM REGIONAL ACCOUNT DIRECTOR Narrative Resulting Agency Comment ER Iris COLLIER LAB BLOOD ORDERABLES Final Re sult Performing Organization Address [facility] [place] [address], [facility] [phone] * (ABNORMAL) CBC with auto differential (10/07/2020 7:39 PM REGIONAL ACCOUNT DIRECTOR) WBC 5.9 3.8 - 9.9 X10 3/ul [facility] RBC 5.96(H) 4.30 - 5.80 x10 6/ul [facility] Hemoglobin 14.3 13.0 - 17.5 g/dL [facility] Hct 43.8 38.9 - 50.3 % [facility] MCV 73.5(L) 81.3 - 96.4 fl [facility] MCH 24.0(L) 27.1 - 33.3 pg [facility] MCHC 32.6 32.3 - 35.7 g/dl [facility] RDW 15.7(H) 11.1 - 14.9 % [facility] Plt Count 174 150 - 400 x10 3/ul [facility] MPV 9.5 9.1 - 12.3 fl [facility] Neut % 70.2 % [facility] Immature Gran % 0.2 % [facility] Lymph % 22.5 % [facility] Alpine % 5.5 % [facility] Eos % 0.9 % [facility] AUTO BASO % 0.7 % [facility] NEUTROPHIL ABS # 4.1 1.7 - 6.5 x10 3/ul [facility] Immature Gran # 0.0 0.0 - 0.1 x10 3/ul [facility] Absolute Lymphs (auto) 1.3 0.8 - 3.3 x10 3/ul [facility] Absolute Monos (auto) 0.3 0.2 - 0.8 x10 3/ul [facility] Absolute Eos (auto) 0.1 0.0 - 0.5 x10 3/ul [facility] BASOPHIL ABS # 0.0 0.0 - 0.1 x10 3/ul [facility] Nucleat RBC Rel Count 0.0 #/100WBC [facility] NRBC abs 0.00 0.00 - 0.01 x10 3/ul [facility] Absolute Neutrophils 4,100 200 - 8,000 /ul [facility] 10/07/2020 7:39 PM REGIONAL ACCOUNT DIRECTOR 10/07/2020 7:43 PM REGIONAL ACCOUNT DIRECTOR Narrative Resulting Agency Comment ER us Iris COLLIER LAB BLOOD ORDERABLES Final Re sult [facility] [address] [place] [address] * ECG 12 lead (10/07/2020 7:20 PM REGIONAL ACCOUNT DIRECTOR) Ventricular Rate EKG/Min 79 BPM ER RADIOLOGY Atrial Rate 79 BPM ER RADIOLOGY TX-Interval (MSEC) 136 ms ER RADIOLOGY QRS-Interval (MSEC) 94 ms ER RADIOLOGY QT-Interval (MSEC) 380 ms ER RADIOLOGY QTc 435 ms ER RADIOLOGY P [place] 64 degrees ER RADIOLOGY R [place] 31 degrees ER RADIOLOGY T [place] 23 degrees ER RADIOLOGY Diagnosis Normal sinus rhythm Possible Left atrial enlargement Borderline ECG When compared with ECG of 26-MAR-2019 02:01, No significant change was found ER RADIOLOGY 10/07/2020 7:20 PM REGIONAL ACCOUNT DIRECTOR 10/08/2020 11:25 AM REGIONAL ACCOUNT DIRECTOR Narrative Resulting Agency Comment PREADT us Iris COLLIER ECG ORDERABLES Final Result ER RADIOLOGY * (ABNORMAL) Urinalysis, Complete (10/07/2020 7:16 PM REGIONAL ACCOUNT DIRECTOR) Ur Collection Type CLEAN CATCH [facility] Urine Color JD YELLOW [facility] Urine Clarity CLEAR CLEAR [facility] Urine Glucose (UA) NORMAL NORMAL mg/dL [facility] Urine Bilirubin NEGATIVE NEGATIVE mg/dl [facility] Urine Ketones NEGATIVE NEGATIVE mg/dL [facility] Ur Specific [place] 1.021 1.005 - 1.025 [facility] Urine Blood NEGATIVE NEGATIVE mg/dl [facility] Urine pH 5.0 5.0 - 8.0 [facility] Urine Protein 30(A) NEGATIVE mg/dL [facility] Urine Urobilinogen NORMAL NORMAL mg/dL [facility] Urine Nitrite NEGATIVE NEGATIVE [facility] Ur Leukocyte Esterase NEGATIVE NEGATIVE Arlen/ul [facility] Ur Microscopic Review Indicated or Ordered [facility] Urine RBC 0-2 0 - 2 /HPF [facility] Urine WBC 0-5 0 - 2 /HPF [facility] Urine Mucus Present /LPF [facility] Ur Squamous Epith Cells 1-5 /HPF [facility] Hyaline Casts 1-5 0 - 2 /LPF [facility] 10/07/2020 7:16 PM REGIONAL ACCOUNT DIRECTOR 10/07/2020 7:46 PM REGIONAL ACCOUNT DIRECTOR Narrative Resulting Agency Comment ER us Iris COLLIER LAB URINE ORDERABLES Final Re sult [facility] [address] [id number], [facility] [phone] * CT Abdomen Pelvis WO Contrast (10/07/2020 7:10 PM REGIONAL ACCOUNT DIRECTOR) Anatomical Region Laterality Modality Body N/A Computed Tomogra phy 10/07/2020 9:24 PM REGIONAL ACCOUNT DIRECTOR Narrative 10/07/2020 9:43 PM REGIONAL ACCOUNT DIRECTOR Patient Name: CORPUS,VINCENT J ?Ordering Dr: Iris Hernandez PA-C ?? D.O.B: 1970 ? Exam Date: 10/07/20 ?? 1910 ?? Age: 50 ?Sex: Male ? MR#: [id number] ?? Loc: ? RADIOLOGY REPORT ?? Order #[id number] ?? CT Scan ? CT Abd/Pelvis WO IV Contrast ? Signed ?? EXAM DESCRIPTION: ?? CT Abd/Pelvis WO IV Contrast ? REASON FOR STUDY: ?? Right lower quadrant pain today ? TECHNIQUE: ??CT scan of the abdomen and pelvis performed without intravenous ?? and ??without oral contrast using helical scanning technique. Reconstructed ?? coronal and sagittal MPR images reviewed. All images stored on PACS. ? Automated exposure control was used as a dose optimization technique for this ?? examination. ? COMPARISON: ?? 11/11/2018 ? FINDINGS: ? The sensitivity for detection of visceral lesions is diminished without the ?? use of intravenous contrast. ? LOWER CHEST: Lung bases are clear. ? LIVER: Enlarged. ??Diffusely fatty. ? GALLBLADDER: Removed ? BILE DUCTS: No intrahepatic or extrahepatic ductal dilatation. ? SPLEEN: Enlarged. ? PANCREAS: Parenchyma is unremarkable. ??No peripancreatic fat stranding or ?? fluid collection. ??No main pancreatic ductal dilation. ? ADRENALS: ??A left adrenal myelolipoma measures 6 mm. ??Right adrenal is ?? unremarkable. ? KIDNEYS/URINARY TRACT: Right kidney contains 2 stones measuring 1 mm in 2 mm. ? There is a left renal superior pole 3 mm stone. ??No hydronephrosis. ??No ?? hydroureter. ??No ureteral or bladder stones. ??Urinary bladder wall is mildly ?? thickened with mild surrounding fat stranding. ? GI: ??Bowel caliber is normal. ??Appendix is normal. Colonic diverticulosis ?? without associated inflammatory changes. ??There is focal wall thickening of ?? the proximal sigmoid colon that is unchanged from 11/11/2018. ? PERITONEUM: No ascites or free air. ? RETROPERITONEUM: ??No mass or adenopathy. ? REPRODUCTIVE: Prostate is mildly enlarged. ? VASCULATURE: No abdominal aortic aneurysm. ? MUSCULOSKELETAL: No aggressive lesions ? OTHER: No other abnormality. ? IMPRESSION: ? 1. ??Normal appendix. ? 2. ??Urinary bladder wall is borderline thickened. ??The differential includes ?? cystitis and sequela of chronic outlet stenosis from the prostate. ? 3. ??Proximal sigmoid colon wall thickening is unchanged from 11/11/2018. ??This ?? may represent sequela of prior inflammation, however the differential includes ?? an underlying mass. ??Colonoscopy is recommended if not recently performed. ? 4. ??Bilateral nephrolithiasis. ? 5. ??Hepatosplenomegaly and hepatic steatosis. ? 6. ??Left adrenal myolipoma. ? THIS IS AN ELECTRONICALLY VERIFIED FINAL REPORT ?? 10/07/2020 9:43 PM - Electronically signed by Raza Santos M.D. ?? Raza Santos M.D. ? RS ?? D: ??10/07/2020 9:43 PM ?? T: ? Report ID: [id number] ?? Reading Location: ??[id number] ? REPORT ELECTRONICALLY SIGNED IN OTHER VENDOR SYSTEM ?? Resulting Agency Comment E Procedure Note Raza Santos MD - 10/07/2020 Patient Name: WADE KELLY Dr: Iris Hernandez PA-C, D.O.B: 1970 Exam Date: 10/07/201909 Age: 50 Sex: Male MR#: [id number] Loc: RADIOLOGY REPORT Order #[id number] CT Scan CT Abd/Pelvis WO IV Contrast Signed EXAM DESCRIPTION: CT Abd/Pelvis WO IV Contrast REASON FOR STUDY: Right lower quadrant pain today TECHNIQUE: CT scan of the abdomen and pelvis performed withoutintravenous and without oral contrast using helical scanning technique.Reconstructed coronal and sagittal MPR images reviewed. All images stored on PACS. Automated exposure control was used as a dose optimization technique forthis examination. COMPARISON: 11/11/2018 FINDINGS: The sensitivity for detection of visceral lesions is diminished withoutthe use of intravenous contrast. LOWER CHEST: Lung bases are clear. LIVER: Enlarged. Diffusely fatty. GALLBLADDER: Removed BILE DUCTS: No intrahepatic or extrahepatic ductal dilatation. SPLEEN: Enlarged. PANCREAS: Parenchyma is unremarkable. No peripancreatic fat stranding or fluid collection. No main pancreatic ductal dilation. ADRENALS: A left adrenal myelolipoma measures 6 mm. Right adrenal is unremarkable. KIDNEYS/URINARY TRACT: Right kidney contains 2 stones measuring 1 mm in 2mm. There is a left renal superior pole 3 mm stone. No hydronephrosis. No hydroureter. No ureteral or bladder stones. Urinary bladder wall ismildly thickened with mild surrounding fat stranding. GI: Bowel caliber is normal. Appendix is normal. Colonic diverticulosis without associated inflammatory changes. There is focal wall thickeningof the proximal sigmoid colon that is unchanged from 11/11/2018. PERITONEUM: No ascites or free air. RETROPERITONEUM: No mass or adenopathy. REPRODUCTIVE: Prostate is mildly enlarged. VASCULATURE: No abdominal aortic aneurysm. MUSCULOSKELETAL: No aggressive lesions OTHER: No other abnormality. IMPRESSION: 1. Normal appendix. 2. Urinary bladder wall is borderline thickened. The differentialincludes cystitis and sequela of chronic outlet stenosis from the prostate. 3. Proximal sigmoid colon wall thickening is unchanged from 11/11/2018.This may represent sequela of prior inflammation, however the differentialincludes an underlying mass. Colonoscopy is recommended if not recentlyperformed. 4. Bilateral nephrolithiasis. 5. Hepatosplenomegaly and hepatic steatosis. 6. Left adrenal myolipoma. THIS IS AN ELECTRONICALLY VERIFIED FINAL REPORT 10/07/2020 9:43 PM - Electronically signed by Raza Santos M.D. RS T: Report ID: [id number] Reading Location: [place] [address] REPORT ELECTRONICALLY SIGNED IN OTHER VENDOR SYSTEM us Iris COLLIER IMG CT PROCEDURES Final Resul t documented in this encounter Visit Diagnoses Not on filedocumented in this encounter Care Teams Safety Assistant Relationship Specialty Start Date End Date Carlos Gamboa MD [address] [place] [address] PCP - General Family Medicine 09/30/20 05/07/21 Miscellaneous, Not In File 11/16/19 documented as of this encounter
--- OUTSIDE RECORDS SUMMARY | 2024-09-10 04:10 | XMS_ITS | Encounter Summary ---
Author Organization [facility] Healthcare Address [address] [place] [id number] Care Team Providers Care Hospital Admitting Clerk Name Role Phone Jagdeep Sanford DO Primary Care Provider [phone] Miscellaneous, Not In File Unavailable Unava ilable Reason for Visit * Reason Comments Medication Refill Encounter Details Date Type Department Care Team ([facility] st Contact Info) Description 11/18/2019 4:40 AM ORIENTATION & MOBILITY SPECIALIST - 11/18/2019 5:02 AM ORIENTATION & MOBILITY SPECIALIST Emergency [facility] [address] [place] [id number] Candice Murray MD [address] [place] [address] Drug-seeking behavior (Primary Dx) Discharge Disposition: Discharge to home [...] on file Legal Sex Male 1:40 AM ORIENTATION & MOBILITY SPECIALIST Gender Identity Not on file Sexual Orientation Not on file documented as of this encounter Last Filed Vital Signs Vital Sign Reading Time Taken Comments Blood Pressure 147/90 11/18/2019 4:47 AM ORIENTATION & MOBILITY SPECIALIST Pulse 65 11/18/2019 4:47 AM ORIENTATION & MOBILITY SPECIALIST Temperature 36.8 ??C (98.3 ??F) 11/18/2019 4:47 AM CS T Respiratory Rate 17 11/18/2019 4:47 AM ORIENTATION & MOBILITY SPECIALIST Oxygen Saturation 98% 11/18/2019 4:47 AM ORIENTATION & MOBILITY SPECIALIST Inhaled Oxygen Concentration - - Weight 129.3 kg (285 lb) 11/18/2019 4:47 AM ORIENTATION & MOBILITY SPECIALIST Height 188 cm (6' 2 ) 11/18/2019 4:47 AM ORIENTATION & MOBILITY SPECIALIST Body Mass Index 36.59 11/18/2019 4:47 AM ORIENTATION & MOBILITY SPECIALIST documented in this encounter Discharge Diagnoses Diagnosis Malingerer (conscious simulation) - 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 SIMULATION] Anxiety disorder, unspecified - ANXIETY DISORDER, UNSPECIFIED Essential (primary) hypertension - ESSENTIAL (PRIMARY) HYPERTENSION Unspecified essential hypertension Unspecified asthma, uncomplicated - UNSPECIFIED ASTHMA, UNCOMPLICATED Post-traumatic stress disorder, unspecified - POST-TRAUMATIC STRESS DISORDER, UNSPECIFIED Major depressive disorder, recurrent, in partial remission (HCC) - MAJOR DEPRESSIVE DISORDER, RECURRENT, IN PARTIAL REMISSION Type 2 diabetes mellitus without complications (CMS/HCC) (HCC) - TYPE 2 DIABETES MELLITUS WITHOUT COMPLICATIONS Unspecified osteoarthritis, unspecified site - UNSPECIFIED OSTEOARTHRITIS, UNSPECIFIED SITE Personal history of nicotine dependence - PERSONAL HISTORY OF NICOTINE DEPENDENCE Family history of ischemic heart disease and other diseases of the circulatory system - FAMILY HISTORY OF ISCHEMIC HEART DISEASE AND OTHER DISEASES OF THE CIRCULATORY SYSTEM documented in this encounter Medications at Time of Discharge ibuprofen (ADVIL,MOTRIN) 600 mg tablet Take 1 tablet (600 mg total) by mouth every 6 hours 10/30/2016 meclizine (ANTIVERT) 25 mg tablet Take 1 tablet (25 mg total) by mouth every 12 hours albuterol HFA (PROVENTIL HFA,VENTOLIN HFA) 90 mcg/actuation inhaler Inhale 2 puffs every 6 hours. 2 ALPRAZolam (XANAX) 1 mg tabletIndications: Generalized Anxiety Disorder Take 1 tablet (1 mg total) by mouth 2 (two) times a day as needed for anxiety 5 tablet 11/06/2019 0 ALPRAZolam (XANAX) 2 mg tablet TK 1 T PO QID 11/06/2019 0 ALPRAZolam (XANAX) 2 mg tablet 2 mg Four times daily 06/19/2018 3 amoxicillin (AMOXIL) 875 mg tablet Take 875 mg by mouth 2 (two) times a day. 04/27/2018 1 atenolol (TENORMIN) 100 mg tabletIndications: Essential hypertension Take [...] capsule 11/02/2019 1 citalopram (CeleXA) 40 mg tabletIndications: Recurrent major depressive disorder, in partial remission (HCC) [...] 01/14/2019 1 fluticasone (FLONASE) 50 mcg/actuation nasal sprayIndications:N on-seasonal allergic rhinitis, unspecified allergic rhinitis trigger Administer 2 sprays into each nostril daily. 1 spray 3 03/12/2017 1 fluticasone propionate (FLONASE) 50 mcg/actuation nasal spray Administer 1 spray into each nostril daily 16 g 11/02/2019 1 fluticasone propionate (FLONASE) 50 mcg/actuation nasal spray USE 2 SPRAY(S) IN EACH NOSTRIL ONCE DAILY 10/05/2019 1 hyoscyamine (LEVSIN) 0.125 mg SL tabletIndications: Urinary Incontinence Take 1 tablet (0.125 mg total) by mouth every 8 (eight) hours as needed for cramping. 20 tablet 03/19/2017 1 olopatadine 0.6 % spray,non-aerosol Administer 2 [...] MOUTH ONCE DAILY BEFORE BREAKFAST 09/22/2019 1 polyethylene glycol (GoLYTELY) 236-22.74-6.74 -5.86 gram solutionIndication s:Bowel Evacuation Mix Golytely with water and begin drinking at 4pm and finish all solution by midnight day before procedure 4000 mL 06/30/2017 1 promethazine (PHENERGAN) 25 mg tablet Take 25 mg by mouth every 6 hours. 07/17/2016 1 pseudoephedrine-gu aifenesin 120-1,200 mg tablet extended release 12 hr Take 1 tablet by mouth 2 (two) times a day. 20 each 04/29/2018 1 raNITIdine (ZANTAC) 150 mg tablet Take 150 mg by mouth daily. 1 sodium, potassium & mag sulfates (SUPREP BOWEL KIT) 17.5-3.13-1.6 gram recon solnIndications:Milad wel Evacuation Mix bottle of Suprep with water and drink at 4pm, repeat and drink at 10pm day before procedure 354 mL 06/25/2017 1 documented as of this encounter Discharge Disposition Disposition Code Departure Means Destination Discharge to home or self care documented in this encounter ED Notes * Candice Valentino MD - 11/18/2019 4:50 AM CST HPI Chief Complaint Patient presents with ??? Medication Refill HPI patient with long history of Xanax use and anxiety. Multiple ER visits for Xanax refills. Seen by me in ER 11/02/19, states on last pill and had an appointment th next week. Has been seen 6 times since then. Apparently has not had Xanax since mid October. Reports very anxious and having diarrhea. Reports the needs Xanax 10 mg a day. No HI or SI. Patient History Patient Active Problem List Diagnosis Date Noted ??? Xanax use disorder, severe, dependence (CMS/HCC) 11/16/2019 ??? Anxiety 11/16/2019 ??? Type 2 diabetes mellitus with other specified complication (CMS/HCC) 11/16/2019 ??? Severe obesity (BMI 35.0-35.9 with comorbidity) (CMS/HCC) 11/16/2019 ??? Other acute recurrent sinusitis 05/10/2018 ??? Recurrent major depressive disorder, in partial remission (CMS/HCC) 03/12/2017 ??? Anxiety 03/12/2017 ??? Obesity (BMI 30-39.9) 03/12/2017 ??? Benzodiazepine dependence (CMS/HCC) 03/12/2017 ??? Essential hypertension 03/12/2017 ??? Allergic rhinitis 03/12/2017 ??? Microcytic anemia 07/02/2015 ??? Type 2 diabetes mellitus without complication (CMS/HCC) 08/28/2014 Past Medical History: Diagnosis Date ??? Anxiety ??? Arthritis ??? Asthma ??? Benzodiazepine dependence (CMS/HCC) ??? Colon tumor sigmoid benign ??? Depression ??? Diverticulitis ??? Diverticulosis ??? Hypertension ??? PTSD (post-traumatic stress disorder) ??? Recurrent major depressive disorder (CMS/HCC) ??? Type 2 diabetes mellitus (CMS/HCC) Past Surgical History: Procedure Laterality Date ??? CHOLECYSTECTOMY ??? CHOLECYSTECTOMY 2000 Family History Problem Relation Age of Onset ??? Bipolar disorder Mother ??? Anxiety disorder Mother ??? Liver disease Mother ??? Heart disease Father ??? Kidney disease Father ??? Hypertension Mother ??? Hyperlipidemia Mother ??? Mental illness Mother ??? Hypertension Father ??? Stroke Father ??? Hyperlipidemia Father Social History Tobacco Use ??? Smoking status: Former Smoker Packs/day: 1.00 Years: 5.00 Pack years: 5.00 Types: Cigarettes Start date: 1990 Last attempt to quit: 1995 Years since quittin.1 ??? Smokeless tobacco: Never Used Substance Use Topics ??? Alcohol use: Not Currently ??? Drug use: Never Social History Social History Narrative Merged History Encounter Patient is . He lives independently. He is employed Review of Systems Review of Systems Constitutional: Negative for chills, diaphoresis, fatigue, fever and unexpected weight change. HENT: Negative for congestion, dental problem, drooling, ear pain, rhinorrhea, sinus pressure, sinus pain, sore throat and trouble swallowing. Eyes: Negative for pain, discharge, itching and visual disturbance. Respiratory: Negative for cough, choking, chest tightness, shortness of breath and stridor. Cardiovascular: Negative for chest pain, palpitations and leg swelling. Gastrointestinal: Positive for diarrhea. Negative for abdominal pain, constipation, nausea and vomiting. Endocrine: Negative for polydipsia, polyphagia and polyuria. Genitourinary: Negative for difficulty urinating, dysuria, flank pain, frequency, hematuria and urgency. Musculoskeletal: Negative for arthralgias, back pain, gait problem, joint swelling, myalgias, neck pain and neck stiffness. Skin: Negative for color change, pallor, rash and wound. Neurological: Negative for dizziness, tremors, seizures, syncope, facial asymmetry, speech difficulty, weakness, light-headedness, numbness and headaches. Psychiatric/Behavioral: Negative for agitation, behavioral problems and confusion. All other systems reviewed and are negative. Physical Exam ED Triage Vitals [11/18/19 0447] Temp Pulse Resp BP SpO2 36.8 ??C (98.3 ??F) 65 17 147/90 98 % Temp src Heart Rate Source Patient Position BP Location FiO2 (%) Temporal -- -- -- -- Physical Exam Vitals signs and nursing note reviewed. Constitutional: General: He is not in acute distress. Appearance: He is obese. He is not ill-appearing or toxic-appearing. Eyes: Extraocular Movements: Extraocular movements intact. Pupils: Pupils are equal, round, and reactive to light. Cardiovascular: Rate and Rhythm: Normal rate and regular rhythm. Pulmonary: Effort: Pulmonary effort is normal. Breath sounds: Normal breath sounds. Skin: General: Skin is warm and dry. Neurological: General: No focal deficit present. Mental Status: He is alert and oriented to person, place, and time. Psychiatric: Mood and Affect: Mood normal. Behavior: Behavior normal. Thought Content: Thought content normal. Judgment: Judgment normal. [facility] ED Course as of Nov 17 458 Time: 11/18 455 Comment: 49 year old white male who has been seeking Xanax prescriptions from multiple providers. Reprots he has called over 400 doctors aand no one will see me . Alternately states last psychiatrist was a quack or that he was terminated due to legal issues. I saw the patient on 11/02/2019 and told him I would give him a limited supply but would not refill any more rx for Xanax. VSS, noting to suggest withdrawal. Referred to [facility]. Patient states if you put this in my history I am going to look like a drug seeker . Informed patient his prescriptions need to come from his physician. Leaves ER with verbal instructions. By: Candice Valentino MD Final diagnoses: Drug-seeking behavior Candice Valentino MD 11/18/19458 NTATION & MOBILITY SPECIALIST * Isael Askew RN - 11/18/2019 4:45 AM CST Patient states he took his last Xanax dose yesterday, has been seen at multiple ERs in an attempt to get prescription filled due to psychiatrist dropping me as a patient. Reports he has an appointment with [facility] on 12/12/19 regarding his psychiatric care. Normally takes 10mg xanax per day he states. NTATION & MOBILITY SPECIALIST documented in this encounter Plan of Treatment Scheduled Procedures Name Priority Associated Diagnoses Date/Ti me COLONOSCOPY Open Access Diverticulitis documented as of this encounter Visit Diagnoses Diagnosis Drug-seeking behavior- Primary Other, mixed, or unspecified nondependent drug abuse, unspecified documented in this encounter Care Teams Hospital Admitting Clerk Relationship Specialty Start Date End Date Jagdeep Sanford DO [address] [place] [id number] PCP - General Family Medicine 11/16/19 01/20/20 Miscellaneous, Not In File 11/16/19 documented as of this encounter
--- OUTSIDE RECORDS SUMMARY | 2024-09-10 04:10 | XMS_ITS | Encounter Summary ---
Author Organization [facility] Medical Group Address [address] [place] [address] Care Team Providers Care Air Analysis Technician Name Role Phone Miscellaneous, Not In File Unavailable Unava ilable Carlos Gamboa MD Primary Care Provid er Encounter Details Date Type Department Care Team (Late st Contact Info) Description 10/24/2020 Telephone [facility] Medical Group Family Medicine [address] [phone] Carlos Gamboa MD [address] [address] Social History Tobacco Use Types [...] on file Legal Sex Male 1:40 AM STATISTICIAN MATHEMATICAL Gender Identity Not on file Sexual Orientation Not on file documented as of this encounter Miscellaneous Notes * Telephone Encounter - Carlos Gamboa MD - 10/24/2020 3:02 PM STATISTICIAN MATHEMATICAL Noted. ISTICIAN MATHEMATICAL * Telephone Encounter - Angi Liz LPN - 10/24/2020 9:26 AM STATISTICIAN MATHEMATICAL Patient calling today stating that 1) He feels like the all the medications he is on is causing heartburn which is causing him sob. 2)He stated last night his heart felt like it was pounding and he had a few palpitations 3)His mouth was dry so he feels like he is breathing heavy while he is sleeping which concerns him 4)He is showing some symptoms of COVID and he is getting tested tomorrow. Does not want to be evaluated today due to work. 5)He is having back pain from his arthritis from [place]. 6) Patient stated he is feeling lightheaded possibly due to COVID, or the medication that he is taking. Patient stopped taking the medication yesterday so it can get out of his system to see if this is causing all of his symptoms (Cipro, Flagyl, AZO) I offered pt a visit with the respiratory clinic for eval due to COVID symptoms. Pt declined. I offered patient a video visit with PCP. He declined stating that he has a business meeting today. I spent 20 minutes on the phone with him. I let him know that he needs to make time to be evaluateddue to his concerns. He is scheduled tomorrow via video visit with PCP. ISTICIAN MATHEMATICAL documented in this encounter Plan of Treatment Scheduled Procedures Name Priority Associated Diagnoses Date/Ti me COLONOSCOPY Open Access Diverticulitis documented as of this encounter Visit Diagnoses Not on filedocumented in this encounter Care Teams Air Analysis Technician Relationship Specialty Start Date End Date Carlos Gamboa MD [address] [place] [address] PCP - General Family Medicine 09/30/20 05/07/21 Miscellaneous, Not In File 11/16/19 documented as of this encounter
--- OUTSIDE RECORDS SUMMARY | 2024-09-10 04:10 | XMS_ITS | Encounter Summary ---
Author Organization [facility] Healthcare Address [address] [place] [address] Care Team Providers Care Breakfast And Room Attendant Name Role Phone Cata Clifton VENTURA Primary Care Provider [phone] Encounter Details Date Type Department Care Team (Late st Contact Info) Description 03/26/2019 1:29 AM CDT - 03/26/2019 6:01 AM CDT Hospital Encounter [address] [address] Unknown, Nathan Grier MD [address] [place] [address] Discharge Disposition: Discharge to home or self care Social History Tobacco Use Types Packs/Day Years Used Date Smoking Tobacco: Former Smokeless Tobacco: Never Alcohol Use Standard Drinks/Week Comments No 0 (1 standard drink = 0.6 oz pur e alcohol) Sex and Gender Information Value Date Recorded Sex Assigned at Not on file 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 Gender Identity Not on file Sexual Orientation Not on file documented as of this encounter Last Filed Vital Signs Vital Sign Reading Time Taken Comments Blood Pressure 168/85 03/26/2019 1:37 AM CDT Pulse 73 03/26/2019 1:37 AM CDT Temperature 37.2 ??C (98.9 ??F) 03/26/2019 1:37 AM CD T Respiratory Rate - - Oxygen Saturation 100% 03/26/2019 1:37 AM CDT Inhaled Oxygen Concentration - - Weight 135.8 kg (299 lb 6.2 oz) 03/26/2019 1:37 AM CDT Height 185.4 cm (6' 1 ) 03/26/2019 1:37 AM CDT Body Mass Index 39.5 03/26/2019 1:37 AM CDT documented in this encounter Medications at Time of Discharge ibuprofen (ADVIL,MOTRIN) 600 mg tablet Take 1 tablet (600 mg total) by mouth every 6 hours 10/30/2016 meclizine (ANTIVERT) 25 mg tablet Take 1 tablet (25 mg total) by mouth every 12 hours albuterol HFA (PROVENTIL HFA,VENTOLIN HFA) 90 mcg/actuation inhaler Inhale 2 puffs every 6 hours. 2 ALPRAZolam (XANAX) 2 mg tabletIndications: Anxiety with Depression Take 1 tablet (2 mg total) by mouth nightly as needed for anxiety for up to 3 days. 9 tablet 09/15/2017 0 ALPRAZolam (XANAX) 2 mg tablet Take 1 tablet (2 mg total) by mouth 4 (four) times a day 20 tablet 01/14/2019 0 ALPRAZolam (XANAX) 2 mg tablet Take 1 tablet (2 mg total) by mouth 3 (three) times a day 21 tablet 01/27/2019 0 ALPRAZolam (XANAX) 2 mg tabletIndications: anxiety Take 1 tablet (2 mg total) by mouth 3 (three) times a day for 5 days 15 tablet 03/17/2019 0 ALPRAZolam (XANAX) 2 mg tablet 2 [...] for 20 doses 20 tablet 03/17/2019 1 azelastine (ASTELIN) 137 mcg (0.1 %) nasal spray Administer 1 spray into each nostril 2 (two) times a day. Use in each nostril as directed 30 mL 2 04/29/2018 1 bisacodyl EC (DULCOLAX EC) 5 mg EC tablet Take 4 tablets at 7pm day before procedure 4 tablet 06/30/2017 1 citalopram (CeleXA) 40 mg tabletIndications: Recurrent [...] nostril daily. 1 spray 3 03/12/2017 1 hyoscyamine (LEVSIN) 0.125 mg SL tabletIndications: [...] mouth daily. 30 capsule 3 03/15/2017 1 polyethylene glycol (GoLYTELY) 236-22.74-6.74 -5.86 gram [...] Procedure Name Priority Date/Time Associated Diagnosis Comments TNI WITH LIPID PANEL Routine 03/26/2019 2:05 AM CDT CBC WITH AUTO DIFFERENTIAL Routine 03/26/2019 2:05 AM CDT CHOLESTEROL, LDL, DIRECT Routine 03/26/2019 2:05 AM CDT COMPREHENSIVE METABOLIC PANEL Routine 03/26/2019 2:05 AM CDT ECG 12-LEAD 03/26/2019 2:01 AM CDT XR CHEST 1 VIEW 03/26/2019 12:00 AM CDT documented in this encounter Results * Cholesterol, LDL, direct (03/26/2019 2:05 AM CDT) LDL Cholesterol Measurd 110 0 - 129 mg/dL [facility] Comment: National Lipid Association/NCEP Guidelines: ??Optimal ? < 100 mg/dL ??Near Optimal ?100-129 mg/dL ??Borderline high 130-159 mg/dL ??High ?>=160 mg/dL 03/26/2019 2:05 AM CDT 03/26/2019 2:46 AM CDT Narrative Resulting Agency Comment ER us Notinfile Unknown LAB BLOOD ORDERABLES Final Res ult [facility] [address] [place] [address], [facility] [phone] * (ABNORMAL) TNI with LIPID PANEL (03/26/2019 2:05 AM CDT) Troponin I <0.300 0.000 - 0.300 ng/mL [facility] Comment: Reference using MARCK Chemiluminescence ? Negative: Repeat in 4-6 hours as indicated. Triglycerides 396(H) 0 - 149 mg/dL [facility] Comment: LDL(measured) to follow due to Triglycerides >250 mg/dL. National Lipid Association/NCEP Guidelines: ?? Normal ?< 150 mg/dL ?? Borderline high ?? 150-199 mg/dL ?? High ?200-499 mg/dL ?? Very High ? >=500 mg/dL Cholesterol 176 0 - 199 mg/dL [facility] Comment: National Lipid Association/NCEP Guidelines: Desirable ? < 200 mg/dL Borderline high: ??200-239 mg/dL High Risk: ?>=240 mg/dL HDL Cholesterol 21 mg/dL [facility] Comment: Reference Ranges: ? Males: >=40 mg/dL ? Females: >=50 mg/dL Cholesterol/HDL Ratio 8.4 [facility] Comment: Optimal ??< 3.5:1 High ? > 5:1 03/26/2019 2:05 AM CDT 03/26/2019 2:46 AM CDT Narrative Resulting Agency Comment ER us Notinfile Unknown LAB BLOOD ORDERABLES Final Res ult [facility] [address] [place] [address], [facility] [phone] * (ABNORMAL) Comprehensive metabolic panel (03/26/2019 2:05 AM CDT) Sodium 142 135 - 145 mmol/L [facility] Potassium 3.7 3.3 - 5.1 mmol/L [facility] Chloride 105 96 - 108 mmol/L [facility] Carbon Dioxide 27 22 - 32 mmol/L [facility] Anion Gap 10 7 - 16 [facility] Glucose 214(H) 70 - 100 mg/dL [facility] BUN 13 8 - 25 mg/dL [facility] Creatinine 0.6 0.5 - 1.3 mg/dL [facility] Comment: NOTE: Estimated GFR (Cockroft-Gault) will NOT be calculated unless patient Height and Weight were entered. Also, Kidney Disease Stage (GFR) and Estimated GFR (Cockroft-Gault) will NOT be calculated if Creatinine result is <0.2. Kidney Disease Stage >90 mL/MIN [facility] Comment: NOTE; ??The GFR is an [...] failure or on dialysis Est GFR (Cockcroft-G) 220 ml/MIN [facility] Comment: Estimated GFR(Cockroft-Gault)is used to calculate patient medication dosage Calcium 9.7 8.6 - 10.3 mg/dL [facility] Total Protein 7.7 6.4 - 8.3 g/dL [facility] Albumin 4.4 3.5 - 5.0 g/dL [facility] Globulin 3.3 2.3 - 3.5 gm/dL [facility] Albumin/Globulin Ratio 1.3 1.1 - 1.8 [facility] Total Bilirubin 1.0 0.0 - 1.2 mg/dL [facility] AST 50(H) 0 - 40 U/L [facility] ALT 63(H) 0 - 41 U/L [facility] Alkaline Phosphatase 78 40 - 129 U/L [facility] 03/26/2019 2:05 AM CDT 03/26/2019 2:46 AM CDT Narrative Resulting Agency Comment ER us Notinfile Unknown LAB BLOOD ORDERABLES Final Res ult [facility] [address] [place] [address], [facility] [phone] * (ABNORMAL) CBC with auto differential (03/26/2019 2:05 AM CDT) WBC 5.8 3.8 - 9.9 X10 3/ul [facility] RBC 5.88(H) 4.30 - 5.80 x10 6/ul [facility] Hemoglobin 14.2 13.0 - 17.5 g/dL [facility] Hct 43.7 38.9 - 50.3 % [facility] MCV 74.3(L) 81.3 - 96.4 fl [facility] MCH 24.1(L) 27.1 - 33.3 pg [facility] MCHC 32.5 32.3 - 35.7 g/dl [facility] RDW 18.0(H) 11.1 - 14.9 % [facility] Plt Count 172 150 - 400 x10 3/ul [facility] MPV 9.3 9.1 - 12.3 fl [facility] Neut % 63.0 % [facility] Immature Gran % 0.5 % [facility] Lymph % 26.7 % [facility] Pike % 6.4 % [facility] Eos % 2.9 % [facility] AUTO BASO % 0.5 % [facility] NEUTROPHIL ABS # 3.7 1.7 - 6.5 x10 3/ul [facility] Immature Gran # 0.0 0.0 - 0.1 x10 3/ul [facility] Absolute Lymphs (auto) 1.6 0.8 - 3.3 x10 3/ul [facility] Absolute Monos (auto) 0.4 0.2 - 0.8 x10 3/ul [facility] Absolute Eos (auto) 0.2 0.0 - 0.5 x10 3/ul [facility] BASOPHIL ABS # 0.0 0.0 - 0.1 x10 3/ul [facility] Nucleat RBC Rel Count 0.0 #/100WBC [facility] NRBC abs 0.00 0.00 - 0.01 x10 3/ul [facility] Absolute Neutrophils 3,700 200 - 8,000 /ul [facility] 03/26/2019 2:05 AM CDT 03/26/2019 2:46 AM CDT Narrative Resulting Agency Comment ER us Notinfile Unknown LAB BLOOD ORDERABLES Final Res ult Performing Organization Address [facility] de Phone Number [facility] [address] [place] [address], [facility] [phone] * ECG 12 lead (03/26/2019 2:01 AM CDT) Ventricular Rate EKG/Min 77 BPM ER RADIOLOGY Atrial Rate 77 BPM ER RADIOLOGY KY-Interval (MSEC) 140 ms ER RADIOLOGY QRS-Interval (MSEC) 88 ms ER RADIOLOGY QT-Interval (MSEC) 372 ms ER RADIOLOGY QTc 420 ms ER RADIOLOGY P [place] 30 degrees ER RADIOLOGY R [place] 29 degrees ER RADIOLOGY T [place] 7 degrees ER RADIOLOGY Diagnosis Normal sinus rhythm Normal ECG When compared with ECG of 18-JAN-2019 12:44, No significant change was found ER RADIOLOGY 03/26/2019 2:01 AM CDT 03/26/2019 11:41 AM CDT Narrative Resulting Agency Comment RAMON us Notinfile Unknown ECG ORDERABLES Final Result Performing Organization Address [facility] de Phone Number ER RADIOLOGY * XR Chest 1 View (03/26/2019 12:00 AM CDT) Anatomical Region Laterality Modality Body, Chest N/A Radiographic Katarzyna ging 03/26/2019 2:57 AM CDT Narrative 03/26/2019 2:57 AM CDT Patient Name: CARLOS KELLY ?Ordering Dr: PERSONAL PHYSICIAN,NO ?? D.O.B: 1970 ? Exam Date: 07/14/19 ?? 0000 ?? Age: 49 ?Sex: Male ? MR#: [id number] ?? Loc: ? RADIOLOGY REPORT ?? Order #[id number] ?? Radiology ? Chest 1 View ? Signed ?? EXAM DESCRIPTION: ??Chest 1 View ? REASON FOR STUDY: ??CHEST PAIN THIS AM WITH HIGH BLOOD PRESSURE ? TECHNIQUE: ?? Portable upright AP view of the chest. ? COMPARISON: ??01/18/2019 ? FINDINGS: ? LUNGS AND PLEURA: No focal opacity, large effusion, or pneumothorax identified. ? HEART/MEDIASTINUM: Trachea midline. Cardiac silhouette normal in size. ?? Mediastinal contours appear normal. ? BONES: Unremarkable. ? UPPER ABDOMEN: Unremarkable. ? IMPRESSION: ??No acute abnormality identified. ? THIS IS AN ELECTRONICALLY VERIFIED FINAL REPORT ?? 03/26/2019 2:57 AM - Electronically signed by Gilson Jesus M.D. ?? Gilson Jesus M.D. ? [place] ?? D: ??03/26/2019 2:57 AM ?? T: ? Report ID: [id number] ?? Reading Location: ??[id number] ? REPORT ELECTRONICALLY SIGNED IN OTHER VENDOR SYSTEM ?? Resulting Agency Comment P Procedure Note Gilson Jesus MD - 03/26/2019 Patient Name: CARLOS KELLY Dr: PERSONAL PHYSICIAN,NO D.O.B: 1970 Exam Date: 03/26/19 0000 Age: 49 Sex: Male MR#: [id number] Loc: RADIOLOGY REPORT Order #[id number] Radiology Chest 1 View Signed EXAM DESCRIPTION: Chest 1 View REASON FOR STUDY: CHEST PAIN THIS AM WITH HIGH BLOOD PRESSURE TECHNIQUE: Portable upright AP view of the chest. COMPARISON: 01/18/2019 FINDINGS: LUNGS AND PLEURA: No focal opacity, large effusion, or pneumothoraxidentified. HEART/MEDIASTINUM: Trachea midline. Cardiac silhouette normal in size. Mediastinal contours appear normal. BONES: Unremarkable. UPPER ABDOMEN: Unremarkable. IMPRESSION: No acute abnormality identified. THIS IS AN ELECTRONICALLY VERIFIED FINAL REPORT 03/26/2019 2:57 AM - Electronically signed by Gilson DOWNEY T: Report ID: [id number] Reading Location: [place] [address] REPORT ELECTRONICALLY SIGNED IN OTHER VENDOR SYSTEM us Notinfile Unknown IMG XR PROCEDURES Final Result documented in this encounter Visit Diagnoses Not on filedocumented in this encounter Care Teams Breakfast And Room Attendant Relationship Specialty Start Date End Date Cata Clifton NP PCP - General 03/17/19 11/04/19 documented as of this encounter
--- OUTSIDE RECORDS SUMMARY | 2024-09-10 04:10 | XMS_ITS | Encounter Summary ---
Author Organization [facility] Healthcare Address [address] [place] [address] Care Team Providers Care Oven Attendant Name Role Phone Miscellaneous, Not In File Unavailable Unava Charanjit Wilburn MD Primary Care Provider [phone] Encounter Details Date Type Department Care Team (Late st Contact Info) Description 01/21/2020 4:38 PM CDT - 01/21/2020 4:50 PM CDT Hospital Encounter [facility] Emergency Department [facility] [place], [place] [id number] Unknown, Corrina Jackson MD [facility] EM[facility]GENC[facility]MENT [place], [place] [id number] Discharge Disposition: Left without being seen Social [...] on file 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 2 ALPRAZolam (XANAX) 2 mg tablet Take [...] sulfates (SUPREP BOWEL KIT) 17.5-3.13-1.6 gram recon solnIndications:Ulster el Evacuation Mix bottle of Suprep with water and drink at 4pm, repeat and drink at 10pm day before procedure 354 mL 06/25/2017 1 documented as of this encounter Discharge Disposition Disposition Code Departure Means Destination Left without being seen documented in this encounter Plan of Treatment Scheduled Procedures Name Priority Associated Diagnoses Date/Ti me COLONOSCOPY Open Access Diverticulitis documented as of this encounter Visit Diagnoses Not on filedocumented in this encounter Care Teams Oven Attendant Relationship Specialty Start Date End Date Charanjit Sheffield MD PCP - General 01/21/20 09/29/20 Miscellaneous, Not In File 11/16/19 documented as of this encounter
--- OUTSIDE RECORDS SUMMARY | 2024-09-10 04:10 | XMS_ITS | Encounter Summary ---
Author Organization [facility] Address [address] [facility] [address] [place] [address] Care Team Providers Care Photocomposition Keyboard Operator Name Role Phone Miscellaneous, Not In File Unavailable Unava ilable Carlos Gamboa MD Primary Care Provid er Unknown, Notinfile Primary Care Provider Unavail able Encounter Details Date Type Department Care Team (Late st Contact Info) Description 10/27/2020 Orders Only [facility] Health Information Management [address] [place] [address] Carlos Gamboa MD [facility] [address] [place], [place] [id number] Social History Tobacco Use Types Packs/Day Years [...] on file 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 Gender Identity Not on file Sexual Orientation Not on file documented as of this encounter Plan of Treatment Scheduled Procedures Name Priority Associated Diagnoses Date/Ti me COLONOSCOPY Open Access Diverticulitis documented as of this encounter Procedures Procedure Name Priority Date/Time Associated Diagnosis Comments SCAN - RADIOLOGY/IMAGING 10/27/2020 documented in this encounter Results * SCAN - RADIOLOGY/IMAGING (10/27/2020) Anatomical Region Laterality Modality Other Carlos la Result documented in this encounter Visit Diagnoses Not on filedocumented in this encounter Care Teams Photocomposition Keyboard Operator Relationship Specialty Start Date End Date Carlos Gamboa MD [address] [place] [address] PCP - General Family Medicine 09/30/20 05/07/21 Unknown, Notinfile PCP - General 05/08/21 11/26/21 Miscellaneous, Not In File 11/16/19 documented as of this encounter
--- OUTSIDE RECORDS SUMMARY | 2024-09-10 04:10 | XMS_ITS | Encounter Summary ---
Author Organization [facility] Healthcare Address [address] [place] [address] Care Team Providers Care Heel Seat Laster Name Role Phone Jagdeep Sanford DO Primary Care Provider [phone] Miscellaneous, Not In File Unavailable Unava ilable Charanjit Sheffield MD Primary Care Provider [phone] Carlos Gamboa MD Primary Care Provid er Unknown, Notinfile Primary Care Provider Unavail able No, Physician Primary Care Provider [phone] Unknown, Notinfile Primary Care Provider Unavail able No, Physician Primary Care Provider [phone] Unknown, Notinfile Primary Care Provider Unavail able Adin Lino MD Primary Care Provider + Unknown, Notinfile Primary Care Provider Unavail able Encounter Details Date Type Department Care Team (Late st Contact Info) Description 11/29/2019 Documentation [facility] Respiratory [id number] [place] [address] Herbie Ramsey RRT Social History Tobacco Use Types Packs/Day Years [...] on file 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 No / Unsure 11/28/2019 10:38 PM CDT documented as of this encounter Plan of Treatment Scheduled Procedures Name Priority Associated Diagnoses Date/Ti va COLONOSCOPY Open Access Diverticulitis documented as of this encounter Visit Diagnoses Not on filedocumented in this encounter Additional Health Concerns Infection Onset Date Last Indicated Resolved Time COVID: Suspected 10/11/2023 10/11/2023 10/11/2023 5:30 PM WEB DEVELOPER documented as of this encounter Care Teams Heel Seat Laster Relationship Specialty Start Date End Date Jagdeep Sanford DO [address] [place] [address] PCP - General Family Medicine 11/16/19 01/20/20 Charanjit Sheffield MD PCP - General 01/21/20 09/29/20 Carlos Gamboa MD [address] [place] [address] PCP - General Family Medicine 09/30/20 05/07/21 Unknown, Notinfile PCP - General 05/08/21 11/26/21 No, Physician PCP - General 11/27/21 01/13/23 Unknown, Notinfile PCP - General 01/14/23 01/17/24 No, Physician PCP - General 01/18/24 04/21/24 Unknown, Notinfile PCP - General 04/22/24 07/30/24 Adin Lino MD [address] [place] [address] PCP - General Internal Medicine 07/31/24 07/31/24 Unknown, Notinfile PCP - General 08/01/24 Miscellaneous, Not In File 11/16/19 documented as of this encounter
--- OUTSIDE RECORDS SUMMARY | 2024-09-10 04:10 | XMS_ITS | Encounter Summary ---
Author Organization [facility] Healthcare Address [address] [place] [id number] Care Team Providers Care Visual Merchandiser Name Role Phone Jagdeep Sanford DO Primary Care Provider [phone] Miscellaneous, Not In File Unavailable Unava ilable Reason for Visit * Reason Comments Eye Problem medication refill Encounter Details Date Type Department Care Team ([facility] st Contact Info) Description 11/21/2019 12:58 PM CDT - 11/21/2019 2:36 PM CDT Emergency 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 Gender Identity Not on file Sexual Orientation Not on file documented as of this encounter Last Filed Vital Signs Vital Sign Reading Time Taken Comments Blood Pressure 169/93 11/21/2019 2:22 PM CDT Pulse 61 11/21/2019 2:21 PM CDT Temperature 36.9 ??C (98.5 ??F) 11/21/2019 1:02 PM CD T Respiratory Rate 18 11/21/2019 1:02 PM CDT Oxygen Saturation 98% 11/21/2019 2:21 PM CDT ra Inhaled Oxygen Concentration - - Weight 119.3 kg (263 lb) 11/21/2019 1:04 PM CDT Height 188 cm (6' 2 ) 11/21/2019 1:04 PM CDT Body Mass Index 33.77 11/21/2019 1:04 PM CDT documented in this encounter Discharge Diagnoses Diagnosis Acute atopic conjunctivitis, right eye - ACUTE ATOPIC CONJUNCTIVITIS, RIGHT EYE Encounter for issue of repeat prescription - ENCOUNTER FOR ISSUE OF REPEAT PRESCRIPTION Unspecified osteoarthritis, unspecified site - UNSPECIFIED OSTEOARTHRITIS, UNSPECIFIED SITE Unspecified asthma, uncomplicated - UNSPECIFIED ASTHMA, UNCOMPLICATED Essential (primary) hypertension - ESSENTIAL (PRIMARY) HYPERTENSION Unspecified essential hypertension Type 2 diabetes mellitus without complications ([facility]) ([facility]) - TYPE 2 DIABETES MELLITUS WITHOUT COMPLICATIONS alf (current) use of insulin ([facility]) - BUSINESS INSIGHT AND ANALYTICS MANAGER (CURRENT) USE OF INSULIN Post-traumatic stress disorder, unspecified - POST-TRAUMATIC STRESS DISORDER, UNSPECIFIED Anxiety disorder, unspecified - ANXIETY DISORDER, UNSPECIFIED Major depressive disorder, recurrent, in partial remission ([facility]) - MAJOR DEPRESSIVE DISORDER, RECURRENT, IN PARTIAL REMISSION Personal history of nicotine dependence - PERSONAL HISTORY OF NICOTINE DEPENDENCE documented in this encounter Discharge Instructions * Attachments The following attachments cannot be sent through Care Everywhere. * Generalized Anxiety Disorder (Duck Bill Operator) (Kazakh) * Conjunctivitis, Allergic (Kazakh) documented in this encounter Medications at Time [...] sulfates (SUPREP BOWEL KIT) 17.5-3.13-1.6 gram recon solnIndications:[place] Evacuation Mix bottle of Suprep with water and drink at 4pm, repeat and drink at 10pm day before procedure 354 mL 06/25/2017 1 documented as of this encounter Ordered Prescriptions Prescription Sig Dispense Quantity Refills Last Filled Start Date End Date olopatadine (PATANOL) 0.1 % ophthalmic solutionIndications :Allergic Conjunctivitis Administer 1 drop into the right eye 2 (two) times a day 5 mL 11/21/2019 1 ALPRAZolam (XANAX) 2 mg tablet Take 1 tablet (2 mg total) by mouth 3 (three) times a day as needed for anxiety 21 tablet 11/21/2019 1 olopatadine (PATANOL) 0.1 % ophthalmic solutionIndications :Allergic Conjunctivitis Administer 1 drop into the right eye 2 (two) times a day 5 mL 11/21/2019 0 documented in this encounter Discharge Disposition Disposition Code Departure Means Destination Discharge to home or self care documented in this encounter ED Notes * Reymundo Luis MD - 11/21/2019 2:21 PM CDT HPI Chief Complaint Patient presents with ??? Eye Problem ??? medication refill HPI 49-year-old male presents the ED the chief complaint of medication refill. Patient states he has been out of his Xanax that was filled by psychiatrist because he was released by him. He was in the EDrecently receive 3 Xanax extended release. He states he is extremely anxious jittery is having occasional diarrhea. He states he is also having insomnia. He denies any SI HI. Of note he is also complaining of right eye irritation itching. He states he has an appointment with a new psychiatrist December 11. He has been to 3 ERs on November 17 ROS: Gen: No fever, general malaise ENT: No sore throat, ear pain CV: No chest pain, syncope Pulm: No shortness of breath, cough GI: No abdominal pain, no vomiting : No dysuria, no hematuria MSK: No back pain, neck pain Integ: No rashes Neuro: No headache, focal weakness Review of systems per HPI and otherwise all other systems are negative unless otherwise documented Exam: Vital Signs reviewed. Genl: Non-toxic appearance HEENT: EOMI, right conjunctiva mildly injected no exudate Mucous membranes moist. Neck supple w/o LAD or meningismus. CV: RRR, no m/g/r; 2+ radial pulses b/l. Pulm: CTAB, Respirations unlabored. GI: Soft, NT, ND. Ext: No tenderness, no edema. Neuro: Grossly non-focal neuro exam; face symmetric, speech clear, moves all extremities well. Skin: warm, dry. no rash. Psych: Mildly anxious Family Hx :[place] MDM: High probability: Med refill number lingering benzodiazepine abuse allergic conjunctivitis bacterial conjunctivitis plan for short refill will follow up records to make sure [facility] I warned him that if he did not there would be no further prescriptions from this emergency department Reviewed and summarized previous medical records This dictation was done with voice recognition software and may contain errors and omissions Patient History Patient Active Problem List Diagnosis Date Noted ??? Xanax use disorder, severe, dependence ([facility]) 11/16/2019 ??? Anxiety 11/16/2019 ??? Type 2 diabetes mellitus with other specified complication ([facility]) 11/16/2019 ??? Severe obesity (BMI 35.0-35.9 with comorbidity) ([facility]) 11/16/2019 ??? Other acute recurrent sinusitis 05/10/2018 ??? Recurrent major depressive disorder, in partial remission ([facility]) 03/12/2017 ??? Anxiety 03/12/2017 ??? Obesity (BMI 30-39.9) 03/12/2017 ??? Benzodiazepine dependence ([facility]) 03/12/2017 ??? Essential hypertension 03/12/2017 ??? Allergic rhinitis 03/12/2017 ??? Microcytic anemia 07/02/2015 ??? Type 2 diabetes mellitus without complication ([facility]) 08/28/2014 Past Medical History: Diagnosis Date ??? [...] Last attempt to quit: 1995 Years since quittin.2 ??? Smokeless tobacco: Never Used Substance Use Topics ??? Alcohol use: Not Currently ??? Drug use: Never Social History Social History Narrative Merged History Encounter Patient is . He lives independently. He is employed Review of Systems Review of Systems Physical Exam ED Triage Vitals [11/21/19 1246] Temp Pulse Resp BP SpO2 36.3 ??C (97.4 ??F) 88 18 134/84 96 % Temp src Heart Rate Source Patient Position BP Location FiO2 (%) Oral Monitor Lying Right arm -- Physical Exam MDM MDM Final diagnoses: Medication refill Allergic conjunctivitis of right eye Anxiety Reymundo Luis MD 11/21/19 1432 * Bernie Umana RN - 11/21/2019 1:12 PM CDT Patient asking if Dr. Luis was a real doctor. Then asked if he was a foreigner. Asked if he was from [place]. Bernie Umana RN 11/21/19 1315 * Bernie Umana RN - 11/21/2019 1:00 PM CDT Patient states he needs a refill of his alprazolam and can't get one from his doctor due to a lawsuit because his doctor doesn't do what he is supposed to do . States that nobody helps him with his blood pressure meds, his anxiety and today he woke with a right eye issue. documented in this encounter Plan of Treatment Scheduled Procedures Name Priority Associated Diagnoses Date/Ti ma COLONOSCOPY Open Access Diverticulitis documented as of this encounter Visit Diagnoses Diagnosis Medication refill- Primary Issue of repeat prescriptions Allergic conjunctivitis of right eye Other chronic allergic conjunctivitis Anxiety Anxiety state, unspecified documented in this encounter Discontinued Medications Medication Sig Discontinue Reason Start Date End Da te ALPRAZolam (XANAX) 1 mg tabletIndications:Genera lized Anxiety Disorder Take 1 tablet (1 mg total) by mouth 2 (two) times a day as needed for anxiety 11/06/2019 11/21/2019 ALPRAZolam (XANAX) 2 mg tablet TK 1 T PO QID 11/06/2019 11/21/2019 olopatadine (PATANOL) 0.1 % ophthalmic solutionIndications:George rgic Conjunctivitis Administer 1 drop into the right eye 2 (two) times a day Reorder 11/21/2019 11/21/2019 documented as of this encounter Care Teams Visual Merchandiser Relationship Specialty Start Date End Date Jagdeep Sanford DO [address] [place] [id number] PCP - General Family Medicine 11/16/19 01/20/20 Miscellaneous, Not In File 11/16/19 documented as of this encounter
--- OUTSIDE RECORDS SUMMARY | 2024-09-10 04:10 | XMS_ITS | Encounter Summary ---
Author Organization [facility] Address [address] [place] [address] Phone Care Team Providers Care Mold Builder Name Role Phone Miscellaneous, Not In File Unavailable Unava ilable Carlos Gamboa MD Primary Care Provid er Reason for Visit * Reason Comments Urinary Frequency * Consultation (Routine) - Canceled Specialty Diagnoses / Procedures Referred By Contac t Referred To Contact Urology Diagnoses Urinary frequency Benign prostatic hyperplasia with weak urinary stream Dysuria Carlos Gamboa MD [facility] [address] [place] [address] Phone: tel: fax: Leatha Grier NP Phone: tel: fax: Referral ID Status Reason Start Date Expiration Date Visits Requested Visits Authorized [id number] Canceled Specialty Services Required 10/17/2020 11/16/2021 6 6 Encounter Details Date Type Department Care Team (Late st Contact Info) Description 11/06/2020 12:30 PM SLABBER Office Visit [facility] Surgery [address] [place] [address] [address] [place] [phone] Tammy Goodman NP [address] [place] [address] [place] [id number] OAB (overactive bladder) (Primary Dx); Renal calculi; Lower abdominal pain; Anxiety; Urinary frequency; Dysuria Social History Tobacco Use Types Packs/Day Years [...] on file Legal Sex Male 1:40 AM SLABBER Gender Identity Not on file Sexual Orientation Not on file documented as of this encounter Last Filed Vital Signs Vital Sign Reading Time Taken Comments Blood Pressure 159/100 11/06/2020 1:07 PM SLABBER Pulse 62 11/06/2020 1:07 PM SLABBER Temperature - - Respiratory Rate - - Oxygen Saturation - - Inhaled Oxygen Concentration - - Weight 118.8 kg (262 lb) 11/06/2020 1:07 PM SLABBER Height 188 cm (6' 2 ) 11/06/2020 1:07 PM SLABBER Body Mass Index 33.64 11/06/2020 1:07 PM SLABBER documented in this encounter Ordered Prescriptions Prescription Sig Dispense Quantity Refills Last Filled Start Date End Date mirabegron ER (MYRBETRIQ) 25 mg tablet extended release 24 hr Take 1 tablet (25 mg total) by mouth daily 30 tablet 2 11/06/2020 documented in this encounter Progress Notes * Tammy Goodman NP - 11/06/2020 12:30 PM CST Images from the original note were not included. NEW PATIENT VISIT Patient Name: Carlos Mcgee Referred by: Carlos Gamboa* PCP: Carlos Gamboa MD Date of Visit: 11/06/2020 Chief Complaint: Urinary Frequency Subjective This is a 50 y.o. male with a history of diabetes, history of kidney stones, and anxiety here with complaints of urinary frequency and lower abdominal pain. Patient had to be redirected multiple times during his appointment. He had a hard time focusing on his urologic issues and often went off topic. He appeared very anxious about any symptom he was experiencing and trying any kind of medication. He stated he had a panic attack on the way to the appointment and had to box puller to take a xanax. LUTS: Patient is c/o feelings of incomplete emptying, frequency, urgency, and nocturia (5 or more times) . These problems are not associated with urinary incontinence. The AUA Symptom Score is 18. QoL is terrible (6). He reports these symptoms greatly interfere with his sleep and overall quality of life. Patient denies caffeine use. Patient reports uncontrolled diabetes. Patient denies diuretic use. Patient denies hematuria, dysuria, flank pain, fevers, chills, or unintentional weight loss. He is not familiar with his complete family history. Patient states he does not speak to most of his family anymore. Patient was previously seen by his PCP for these complaints. He was given oxybutynin 5mg IR BID. Hestates he tried this for a few days but didn't seem to help. He thought it increased his anxiety. He was given Vesicare 10mg instead. Patient reports it did not work; however, when asked how long he took it, he said he took it once. Kidney Stones: He had CT 10/07/20 due to complaints of RLQ abdominal pain. This showed small bilateral stones (largest <3mm) in kidney. No hydronephrosis or hydroureter. Lower Abdominal Pain: Does not appear to be related. He states he does have a tumor in his sigmoid colon that was biopsied and found to be benign. Patient says he thinks he has cancer. Review of Systems Review of systems has been reviewed and can be found in the chart. The patient's past medical history, social history, and family history are listed on their questionnaire dated 11/06/20 and has been reviewed and can be found in the chart. Carlos Mcgee has a past medical history of Anxiety, Arthritis, Asthma, Benzodiazepine dependence (CMS/HCC), Colon tumor, Depression, Diverticulitis, Diverticulosis, Hypertension, PTSD (post-traumatic stress disorder), Recurrent major depressive disorder (CMS/HCC), and Type 2 diabetes mellitus (CMS/[facility]). Past Surgical History: Procedure Laterality Date ??? CHOLECYSTECTOMY ??? CHOLECYSTECTOMY 2001 Current Outpatient Medications on File Prior to [...] spray 3 ??? hyoscyamine (LEVSIN) 0.125 mg SL tablet Take 1 tablet (0.125 mg total) by mouth every 8 (eight)hours as needed for cramping. 20 tablet 0 ??? ibuprofen (ADVIL,MOTRIN) 600 mg tablet Take 600 mg by mouth every 6 hours. ??? meclizine (ANTIVERT) 25 mg tablet Take 25 mg by mouth every 12 hours. ??? omeprazole (PriLOSEC) 40 mg capsule Take [...] total) by mouth daily 30 tablet 11 No current facility-administered medications on file prior [...] Hcl Anxiety ??? Toradol [Ketorolac] Nausea only Social History Socioeconomic History ??? Marital status: [...] 1990 Quit date: 1995 Years since quittin.1 ??? Smokeless tobacco: Never Used Substance and Sexual Activity ??? Alcohol use: Not Currently ??? Drug use: Never ??? Sexual activity: Not on file Other Topics Concern ??? Not on file Social History Narrative Merged History Encounter Patient is . He lives independently. He is employed Social Determinants of Health Financial Resource Strain: ??? Difficulty of Paying Living Expenses: Food Insecurity: ??? Worried About Running Out of Food in the Last Year: ??? Ran Out of Food in the Last Year: Transportation Needs: ??? Lack of Transportation (Medical): ??? Lack of Transportation (Non-Medical): Physical Activity: ??? Days of Exercise per Week: ??? Minutes of Exercise per Session: Stress: ??? Feeling of Stress : Social Connections: ??? Frequency of Communication with Friends and Family: ??? Frequency of Social Gatherings with Friends and Family: ??? Attends Anabaptist Services: ??? Active Member of Clubs or Organizations: ??? Attends Club or Organization Meetings: ??? Marital Status: Intimate Partner Violence: ??? Fear of Current or Ex-Partner: ??? Emotionally Abused: ??? Physically Abused: ??? Sexually Abused: Family History Problem Relation Age of Onset ??? Bipolar disorder Mother ??? Anxiety disorder Mother ??? Liver disease Mother ??? Heart disease Father ??? Kidney disease Father ??? Hypertension Mother ??? Hyperlipidemia Mother ??? Mental illness Mother ??? Hypertension Father ??? Stroke Father ??? Hyperlipidemia Father Objective Vitals BP 159/100 Pulse 62 Ht 188 cm (6' 2 ) Wt 118.8 kg (262 lb) BMI 33.64 kg/m?? Physical Exam Vitals and nursing note reviewed. Constitutional: Appearance: Normal appearance. HENT: Head: Normocephalic. Eyes: Conjunctiva/sclera: Conjunctivae normal. Pulmonary: Effort: Pulmonary effort is normal. Abdominal: Tenderness: There is abdominal tenderness. There is no right CVA tenderness or left CVA tenderness. Comments: Obese Musculoskeletal: Cervical back: Normal range of motion. Skin: General: Skin is warm and dry. Neurological: Mental Status: He is alert and oriented to person, place, and time. Psychiatric: Comments: Anxious Scattered LABS AND IMAGING: - I have reviewed all pertinent labs, imaging, and procedures. Additional Labs: Results for orders placed or performed in visit on 11/06/20 POCT urinalysis dipstick Result Value Ref Range Glucose, ur, POC Negative Negative mg/dL Ketones, ur, POC Negative Negative Blood, ur, POC Negative Negative pH, ur, POC 5.0 5.0 - 8.0 Protein, ur, POC 1+ (A) Negative Nitrite, ur, POC Negative Negative Leukocytes, ur, POC Negative Negative Lot Number x Measurement of post-voiding residual urine and/or bladder capacity by ultrasound, non-imaging. ??PVR = 26 ml Diagnoses and all orders for this visit: OAB (overactive bladder) (Primary) Assessment & Plan: -Symptoms are suggestive of OAB. Prostate size [...] completely. Use Vesicare 10mg given to him byhis PCP. -We discussed Myrbetriq initially but this was not covered by insurance and would require PA. Will try above medications first. -Common side effects of both medication reviewed and reassured that anxiety is not typically a sideeffect of either of these. -If symptoms continue, may consider adding tamsulosin to see if this will maximize symptom reduction, but it seems that most of his symptoms are bladder related. Renal calculi Assessment & Plan: -CT showing non-obstructing stones in kidney. Patient was concerned about stones. I had long discussion about his stones and told him that these are unlikely to be causing any of the symptoms he is c/o about. -He already has an appointment with Dr. Aquino 11/14/20 to further discuss. Lower abdominal pain Assessment & Plan: -Patient has history of diverticulitis, benign tumor in sigmoid colon, IBS, and severe anxiety. Discussed with patient that I do not feel this pain is in origin. -Patient states he takes Azo regularly for this pain but doesn't feel it always helps. Anxiety Urinary frequency - Ambulatory referral to Urology - POCT urinalysis dipstick - Measure post void residual Dysuria - Ambulatory referral to Urology Other orders - mirabegron ER (MYRBETRIQ) 25 mg tablet extended release 24 hr; Take 1 tablet (25 mg total) by mouth daily I spent approximately 45 minutes with this patient. Tammy Goodman NP BER BER documented in this encounter Miscellaneous Notes * Assessment & Plan Note - Tammy Goodman NP - 11/09/2020 5:20 PM CSTAssociated Problem(s): Lower abdominal pain -Patient has history of diverticulitis, benign tumor in sigmoid colon, IBS, and severe anxiety. Discussed with patient that I do not feel this pain is in origin. -Patient states he takes Azo regularly for this pain but doesn't feel it always helps. BER * Assessment & Plan Note - Tammy Goodman NP - 11/09/2020 5:19 PM CSTAssociated Problem(s): Renal calculi -CT showing non-obstructing stones in kidney. Patient was concerned about stones. I had long discussion about his stones and told him that these are unlikely to be causing any of the symptoms he is c/o about. -He already has an appointment with Dr. Aquino 11/14/20 to further discuss. BER BER * Assessment & Plan Note - Tammy Goodman NP - 11/09/2020 5:02 PM CSTAssociated Problem(s): OAB (overactive bladder) -Symptoms are suggestive of OAB. Prostate size [...] completely. Use Vesicare 10mg given to him byhis PCP. -We discussed Myrbetriq initially but this was not covered by insurance and would require PA. Will try above medications first. -Common side effects of both medication reviewed and reassured that anxiety is not typically a sideeffect of either of these. -If symptoms continue, [...] Tropsium (adverse effects so this was stopped) BER BER BER BER documented in this encounter Plan of Treatment Scheduled Procedures Name Priority Associated Diagnoses Date/Ti me COLONOSCOPY Open Access Diverticulitis documented as of this encounter Procedures Procedure Name Priority Date/Time Associated Diagnosis Comments POCT URINALYSIS DIPSTICK Routine 11/06/2020 12:46 PM SLABBER Urinary frequency MEASURE POST VOID RESIDUAL Routine 11/06/2020 Urinary frequency documented in this encounter Results * (ABNORMAL) POCT urinalysis dipstick (11/06/2020 12:46 PM SLABBER) Glucose, ur, POC Negative Negative mg/dL Ketones, ur, POC Negative Negative Blood, ur, POC Negative Negative pH, ur, POC 5.0 5.0 - 8.0 Protein, ur, POC 1+(A) Negative Nitrite, ur, POC Negative Negative Leukocytes, ur, POC Negative Negative Lot Number x Urine 11/06/2020 12:4 6 PM SLABBER us Tammy Goodman ORACLE ADF CONSULTANT POINT OF CARE TEST ORDERABLES F inal Result * Measure post void residual (11/06/2020) Narrative Yuridia Skaggs, RN - 11/06/2020 Measurement of post-voiding residual urine and/or bladder capacity by ultrasound, non-imaging. ??PVR = 26 ml us Tammy Goodman ORACLE ADF CONSULTANT NURSING ASSESSMENTS Final Resul t documented in this encounter Visit Diagnoses Diagnosis OAB (overactive bladder)- Primary Renal calculi Calculus of kidney Lower abdominal pain Abdominal pain, other specified site Anxiety Anxiety state, unspecified Urinary frequency Dysuria documented in this encounter Orders Outpatient Referral Count Last Ordered Date Fir st Ordered Date AMB REFERRAL TO UROLOGY 1 11/06/2020 documented in this encounter Care Teams Mold Builder Relationship Specialty Start Date End Date Carlos Gamboa MD [address] [place] [address] PCP - General Family Medicine 09/30/20 05/07/21 Miscellaneous, Not In File 11/16/19 documented as of this encounter
--- OUTSIDE RECORDS SUMMARY | 2024-09-10 04:10 | XMS_ITS | Encounter Summary ---
Author Organization [facility] Healthcare Address [address] [place] [id number] Care Team Providers Care Classification Officer Name Role Phone No, Physician Primary Care Provider [phone] Reason for Visit * Reason Comments Panic Attack Encounter Details Date Type Department Care Team (Late st Contact Info) Description 11/05/2019 11:33 PM CAR DEALER - 11/06/2019 12:24 AM CAR DEALER Emergency [facility] Emergency Department [address] [place] [address] [phone] Candice Murray MD [address] [place] [address] Anxiety (Primary Dx); Encounter for medication refill Discharge Disposition: Discharge to home or self care Social History Tobacco Use Types Packs/Day Years Used Date Smoking Tobacco: Former Smokeless Tobacco: Never Alcohol Use Standard Drinks/Week Comments No 0 (1 standard drink = 0.6 oz pur e alcohol) Sex and Gender Information Value Date Recorded Sex Assigned at Not on file Legal Sex Male 1:40 AM CAR DEALER Gender Identity Not on file Sexual Orientation Not on file documented as of this encounter Last Filed Vital Signs Vital Sign Reading Time Taken Comments Blood Pressure 158/107 11/05/2019 11:42 PM CAR DEALER Pulse 69 11/05/2019 11:42 PM CAR DEALER Temperature 36.8 ??C (98.3 ??F) 11/05/2019 11:[address] Respiratory Rate 17 11/05/2019 11:42 PM CAR DEALER Oxygen Saturation 97% 11/05/2019 11:42 PM CAR DEALER Inhaled Oxygen Concentration - - Weight 118.8 kg (262 lb) 11/05/2019 11:42 PM CAR DEALER Height 185.4 cm (6' 1 ) 11/05/2019 11:42 PM CAR DEALER Body Mass Index 34.57 11/05/2019 11:42 PM CAR DEALER documented in this encounter Discharge Diagnoses Diagnosis Anxiety disorder, unspecified - ANXIETY DISORDER, UNSPECIFIED Unspecified asthma, uncomplicated - UNSPECIFIED ASTHMA, UNCOMPLICATED Essential (primary) hypertension - ESSENTIAL (PRIMARY) HYPERTENSION Unspecified essential hypertension Type 2 diabetes mellitus without complications (CMS/HCC) (HCC) - TYPE 2 DIABETES MELLITUS WITHOUT COMPLICATIONS Major depressive disorder, recurrent, unspecified (HCC) - MAJOR DEPRESSIVE DISORDER, RECURRENT, UNSPECIFIED Post-traumatic stress disorder, unspecified - POST-TRAUMATIC STRESS DISORDER, UNSPECIFIED Unspecified osteoarthritis, unspecified site - UNSPECIFIED OSTEOARTHRITIS, UNSPECIFIED SITE Personal history of nicotine dependence - PERSONAL HISTORY OF NICOTINE DEPENDENCE documented in this encounter Discharge Instructions * Discharge Instructions* Candice Valentino MD - 11/06/2019 12:20 AM CAR DEALER Keep your appointment with your new psychiatrist on . There will be no further refills of Benzodiazepines from the ER. DEALER DEALER * Attachments The following attachments cannot be sent through Care Everywhere. * Generalized Anxiety Disorder (AfterCare(R) Instructions(ER/ED)) (Omani) documented in this encounter Medications at Time [...] Filled Start Date End Date ALPRAZolam (XANAX) 1 mg tabletIndications: Generalized Anxiety Disorder Take 1 tablet (1 mg total) by mouth 2 (two) times a day as needed for anxiety 5 tablet 11/06/2019 0 documented in this encounter Discharge Disposition Disposition Code Departure Means Destination Discharge to home or self care documented in this encounter ED Notes * Candice Valentino MD - 11/05/2019 11:53 PM CST HPI Chief Complaint Patient presents with ??? Panic Attack HPI 49 year old white male with a long history of generalized anxiety disorder and major depression. Comes to the ER for a refill of Xanax 2 mg QID. Reports previous psychiatrist has discharged him, PCP will not fill Benzos and appointment with new psychiatrist is on . Feels nervous. No HI or SI. Has been Stretching his Xanax out , but took last 1/2 pill this evening. Patient History Patient Active Problem List Diagnosis Date Noted ??? Other acute recurrent sinusitis 05/10/2018 ??? [...] ??? Asthma ??? Benzodiazepine dependence (CMS/HCC) ??? Depression ??? Diverticulosis ??? Hypertension ??? PTSD (post-traumatic stress disorder) ??? Recurrent major depressive disorder (CMS/HCC) ??? Type 2 diabetes mellitus (CMS/HCC) Past Surgical History: Procedure Laterality Date ??? CHOLECYSTECTOMY Family History Problem Relation Age of Onset ??? Hypertension Mother ??? Hyperlipidemia Mother ??? Mental illness Mother ??? Hypertension Father ??? Stroke Father ??? Hyperlipidemia Father Social History Tobacco Use ??? Smoking status: Former Smoker ??? Smokeless tobacco: Never Used Substance Use Topics ??? Alcohol use: No ??? Drug use: No Social History Social History Narrative Patient is . He lives independently. He is employed Review of Systems Review of Systems Constitutional: Negative. HENT: Negative. Eyes: Negative. Respiratory: Negative. Cardiovascular: Negative. Gastrointestinal: Negative. Endocrine: Negative. Genitourinary: Negative. Musculoskeletal: Negative. Skin: Negative. Neurological: Negative. Psychiatric/Behavioral: Negative for behavioral problems, confusion and suicidal ideas. The patientis nervous/anxious. Physical Exam ED Triage Vitals [11/05/19 2342] Temp Pulse Resp BP SpO2 36.8 ??C (98.3 ??F) 69 17 (!) 158/107 97 % Temp src Heart Rate Source Patient Position BP Location FiO2 (%) Oral -- -- -- -- Physical Exam Constitutional: General: He is not in acute distress. Appearance: He is obese. He is not ill-appearing, toxic-appearing or diaphoretic. HENT: Head: Normocephalic. Eyes: Extraocular Movements: Extraocular movements intact. Pupils: Pupils are equal, round, and reactive to light. Neurological: General: No focal deficit present. Mental Status: He is alert and oriented to person, place, and time. Psychiatric: Mood and Affect: Mood normal. Behavior: Behavior normal. Thought Content: Thought content normal. Judgment: Judgment normal. Comments: No HI or SI, feels anxious MDM MDM Final diagnoses: Anxiety Encounter for medication refill Candice Valentino MD 11/06/19 0025 DEALER * Isael Askew RN - 11/05/2019 11:40 PM CST Hx of anxiety, states he ran out of xanax tonight. Last dose of 2mg @ 1800 tonight. Was seen recently at another facility which refused to fill his prescription. DEALER documented in this encounter Plan of Treatment Scheduled Procedures Name Priority Associated Diagnoses Date/Ti ct COLONOSCOPY Open Access Diverticulitis documented as of this encounter Visit Diagnoses Diagnosis Anxiety- Primary Anxiety state, unspecified Encounter for medication refill documented in this encounter Discontinued Medications Medication Sig Discontinue Reason Start Date End Da te ALPRAZolam (XANAX) 2 mg tabletIndications:Anxiet y with Depression Take 1 tablet (2 mg total) by mouth nightly as needed for anxiety for up to 3 days. 09/15/2017 11/06/2019 ALPRAZolam (XANAX) 2 mg tablet Take 1 tablet (2 mg total) by mouth 4 (four) times a day 01/14/2019 11/06/2019 ALPRAZolam (XANAX) 2 mg tablet Take 1 tablet (2 mg total) by mouth 3 (three) times a day 01/27/2019 11/06/2019 ALPRAZolam (XANAX) 2 mg tabletIndications:anxiet y Take 1 tablet (2 mg total) by mouth 3 (three) times a day for 5 days 03/17/2019 11/06/2019 documented as of this encounter Care Teams Classification Officer Relationship Specialty Start Date End Date No, Physician PCP - General 11/05/19 11/11/19 documented as of this encounter
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
--- OUTSIDE RECORDS SUMMARY | 2024-09-10 04:10 | XMS_ITS | Encounter Summary ---
Author Organization [facility] Healthcare Address [address] [place] [id number] Care Team Providers Care Machine Operator Cane Cutter Name Role Phone No, Physician Primary Care Provider [phone] Reason for Visit * Reason Comments Med Refill Encounter Details Date Type Department Care Team ([facility] st Contact Info) Description 01/27/2019 8:30 PM CDT - 01/27/2019 10:22 PM CDT Emergency 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 Gender Identity Not on file Sexual Orientation Not on file documented as of this encounter Last Filed Vital Signs Vital Sign Reading Time Taken Comments Blood Pressure 153/93 01/27/2019 10:20 PM CDT Pulse 58 01/27/2019 10:20 PM CDT Temperature 36.4 ??C (97.6 ??F) 01/27/2019 1 0:20 PM CDT Respiratory Rate 18 01/27/2019 8:21 PM CDT Oxygen Saturation 97% 01/27/2019 10: 20 PM CDT Inhaled Oxygen Concentration - - Weight 129.8 kg (286 lb 1.6 oz) 01/27/2019 8:21 PM CDT Height - - Body Mass Index 37.75 01/18/2019 12:36 PM CDT documented in this encounter Discharge Instructions * Discharge Instructions* Leonard Recio MD - 01/27/2019 10:05 PM CDT I would recommend that you see the psychiatrist that you discussed with me, or the listed on-call psychiatrist this coming week. I did agree to provide you with a 1 week supply of Xanax 2 mg to be taken 3 times a day but as I mentioned, you will not be able to receive any refills for controlled substances from this emergency department in the future. * Attachments The following attachments cannot be sent through Care Everywhere. * Generalized Anxiety Disorder (AfterCare(R) Instructions(ER/ED)) (Paraguayan) * Benzodiazepine Withdrawal (Paraguayan) documented in this encounter Medications at Time [...] tablet 01/27/2019 0 ALPRAZolam (XANAX) 2 mg tablet 2 mg Four times daily 06/19/2018 3 amoxicillin (AMOXIL) 875 mg tablet Take 875 mg by mouth 2 (two) times a day. 04/27/2018 1 atenolol (TENORMIN) 100 mg tabletIndications: Essential hypertension Take 1 tablet (100 mg total) by mouth daily. 30 tablet 3 03/12/2017 2 azelastine (ASTELIN) 137 mcg (0.1 %) nasal [...] 40 mg by mouth daily. 02/25/2017 1 cyclobenzaprine (FLEXERIL) 10 mg tablet 10 [...] (three) times a day 21 tablet 01/27/2019 11/06/2019 documented in this encounter Discharge Disposition Disposition Code Departure Means Destination Discharge to home or self care documented in this encounter ED Notes * Leonard Recio MD - 01/27/2019 9:52 PM CDT HPI Chief Complaint Patient presents with ??? Med Refill HPI 48-year-old male with history of depression, anxiety, PTSD, and benzodiazepine dependence, who presents for medication refill. Patient states he takes Xanax 2mg t.i.d. On a regular basis, for PTSD and anxiety. He apparently ran out of this medication yesterday and states his last dose was yesterdayevening. He has been receiving this medication from a psychiatrist, and reports several frustrations with said provider. He has been having difficulty getting his prescriptions filled. He states he called the exchange at his psychiatrists office 40 times, but apparently she is out of town for the next week. He ultimately decided to come here for medication refill. He has no complaints currently. He denies chills or sweats. He denies chest pain or SOB. Of note, patient was here 01/14/19, at which time he had run out of benzodiazepine. At that time, he was apparently unaware that his phsychiatrist had prescribed a lower dose of Xanax and was taking itQID instead of TID, so ran out early and needed a refill. He was discharged with a 5-day supply of Xanax at that visit. According to the record from that visit, and of course the patient, he was not told that he would not receive controlled substances from this facility a 2nd time. This would be are normal policy. Per prior documentation based off of PDMP records, patient had 90 Xanax dispensed on December 21, before that had 15 in August, May, and April all from various providers. The prescriptions donot seem to overlap. He believes that he will be able to see a new provider within the next week Patient History Patient Active Problem List Diagnosis [...] Review of Systems Review of Systems Constitutional: No recent fever chills with some sweats noted secondary to withdrawal symptoms. Cardiac: No chest pain, SOB or edema. No chest pain with exertion. Pulmonary: No cough or wheezing. GI: Mild nausea times typical of his withdrawal symptoms complex. No vomiting, or diarrhea. No abdominal pain. Neuro: No headache. Otherwise, the remainder of a 10 point review of systems in this patient is unremarkable/negative, except for that mentioned above/in the HPI Physical Exam Physical Exam CONSTITUTIONAL: Vital signs were reviewed. Well-appearing; obese male in no apparent distress except for mild to moderate anxiety and significant frustration. Mentating clearly HEAD: Normocephalic; atraumatic. EYES: EOM intact; conjunctiva and sclera are clear bilaterally. ENT: There is no rhinorrhea; Mucous membranes pink/moist. NECK: Supple. CARD: Rate is normal. Rhythm is regular. Not tachycardic. RESP: Respirations non-labored. Not dyspneic. ABD: Non-distended. EXT: Normal ROM. No edema. SKIN: No pallor. No unusual rashes/lesions are present. NEURO: Non-lateralizing exam. PSYCHIATRIC: Affect appears normal. Anxious affect. [facility] ED Course as of Jan 28 2332 Time: 01/27 2111 Comment: I have not yet seen this patient. He is refusing to see a PA and stating he wants to see an MD only. By: AMIRA John Vitals: 01/27/19 2220 BP: 153/93 Pulse: 58 Resp: Temp: 36.4 ??C (97.6 ??F) SpO2: 97% No orders to display Labs Reviewed - No data to display MDM MEDICAL DECISION MAKING CLINICAL PICTURE: Patient with benzodiazepine addiction and now withdrawal symptoms after running out yesterday about 24 hours prior to arrival here. He seems fairly legitimate. He has had some difficulties with his healthcare providers. The patient's prior prescriptions for this medication do not seem to overlap although he does go to different providers. He was seen here in the past and did receive a small quantity of Xanax the and was told to see his PCP for additional refills but he was nottold that he would not receive controlled substances again for chronic conditions which would be our policy. For that reason, I did offer him a 1 week supply of 2 mg Xanax t.i.d. -21 tablets with 1 tablet given here before discharge. This time, he was definite told, that we would not provide a prescription for this substance again or any other chronic controlled substance prescription that he might be on. I did provide him with the name of the on-call psychiatrist for follow-up. INTERPRETATION OF CLINICAL STUDIES: Refer to the orders and results documented in the chart. PREVIOUS MEDICAL RECORDS: Reviewed if available. DISCUSSION OF CASE: The patient's H&P and the results of studies and treatments were not discussed with the PCP/Polishing Pad Mounter. TREATMENT PLAN: See Above Anxiety Benzodiazepine withdrawal without complication ([facility]) I, Bertha Pate, am scribing for, and in the presence of, Dr. Hemal MD. I, Leonard Recio MD, have personally performed the services described in the documentation, reviewed the documentation, as recorded by the scribe in my presence, and it accurately and completely records my words and actions. Leonard Recio MD 01/27/19 [id number] * Chyna Quiroga RN - 01/27/2019 8:22 PM CDT Patient states his doctor has been unavailable to fill his prescriptions, seeking medication refills. documented in this encounter Plan of Treatment Scheduled Procedures Name Priority Associated Diagnoses Date/Ti ct COLONOSCOPY Open Access Diverticulitis documented as of this encounter Visit Diagnoses Diagnosis Anxiety- Primary Anxiety state, unspecified Benzodiazepine withdrawal without complication (HCC) documented in this encounter Administered Medications Inactive Administered Medications - up to 3 most recent administrations Medication Order MAR Action Action Date Dose Rate Site ALPRAZolam (XANAX) tablet 2 mg 2 mg, oral, Once, On Wed01/27/19 at 2208, For 1 dose Given 01/27/2019 10:17 PM CDT 2 mg documented in this encounter Active and Recently Administered Medications Times are shown in CDT. Scheduled Medication Order 01/25/2019 01/26/2019 01/27/2019 ALPRAZolam (XANAX) tablet 2 mg (COMPLETED) 2 mg, oral, Once, On Wed01/27/19 at 2208, For 1 dose 2217 (Given - Provid er: Arie Thibodeaux RN) documented in this encounter Care Teams Machine Operator Cane Cutter Relationship Specialty Start Date End Date No, Physician PCP - General 09/15/17 03/16/19 documented as of this encounter
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
--- OUTSIDE RECORDS SUMMARY | 2024-09-10 04:10 | XMS_ITS | Encounter Summary ---
Author Organization [facility] Medical Group Address [address] [facility] [address] [place] [address] Care Team Providers Care Shale Planer Operator Helper Name Role Phone Miscellaneous, Not In File Unavailable Unava ilable Carlos Gamboa MD Primary Care Provid er Reason for Visit * Reason Onset Date Comments Feeling better/GI doctor 10/25/2020 Encounter Details Date Type Department Care Team (Late st Contact Info) Description 10/25/2020 Telephone [facility] Family Medicine [address] [phone] Carlos Gamboa MD [address] [address] Feeling better/GI doctor Social History Tobacco Use Types Packs/Day Years [...] file Legal Sex Male 1:40 AM DIRECTOR GROUP SALES Gender Identity Not on file Sexual Orientation Not on file documented as of this encounter Miscellaneous Notes * Telephone Encounter - Angi Liz LPN - 10/25/2020 11:56 AM DIRECTOR GROUP SALES Patient calling back again stating that he is still having some heartburn and nausea. I let him know message was sent to MD and we have not heart back from him yet. Patient stated he wants an in person visit with MD however he can not until he gets his covid test back. He stated that he sleeps a lot and very fatigued. He is requesting a refill on his Zofran the dissolvable tables. Please sent to [facility] in [place]. CTOR GROUP SALES * Telephone Encounter - Angi Liz LPN - 10/25/2020 10:[address] Gamboa, okay to refer him to GI at this time? I will schedule him for an appointment next week and let him know he needs to keep this appointment. CTOR GROUP SALES * Telephone Encounter - Gely Holden - 10/25/2020 10:48 AM CST Pt called back and didn't quite explain very well but did say he wants the nurse to call him back in 30 minutes as he will be at home at that time. Pt states I know I have heartburn because when I drink sprite it makes be belch . Pt also talked about a urology appt and hopes he gets his Covid results by the time has the appt next week. This phone call was very hard to understand what he actually wanted but did make it clear that he wants a call back. CTOR GROUP SALES * Telephone Encounter - Landy Price LPN - 10/25/2020 9:37 AM DIRECTOR GROUP SALES Please see previous note as an FYI Please place GI referral if appropriate, CRISTELA states:GI consult overdue and the patient needs to follow-up with his respiratory supervisor. Last note states Return in about 4 weeks (around 11/14/2020). I will call and tell the pt that. CTOR GROUP SALES * Telephone Encounter - Natalia Pemberton - 10/25/2020 8:59 AM CST Pt called to cancel his zoom visit for today and said that he feels like he just had indigestion. He said that he drank some spite and had a lot of belching and then felt better. He also said that heused a heating pad on his back and that seemed to help for now with his back pain. He also stated that he would not of been able to do the zoom because of his work. He did want to see if [facility] could refer him to a GI doctor and would like to know when [facility] would liketo see him back in the office. [phone] Thank you/nh CTOR GROUP SALES documented in this encounter Plan of Treatment Scheduled Procedures Name Priority Associated Diagnoses Date/Ti me COLONOSCOPY Open Access Diverticulitis documented as of this encounter Visit Diagnoses Not on filedocumented in this encounter Care Teams Shale Planer Operator Helper Relationship Specialty Start Date End Date Carlos Gamboa MD [facility] [address] [place] [address] PCP - General Family Medicine 09/30/20 05/07/21 Miscellaneous, Not In File 11/16/19 documented as of this encounter
--- OUTSIDE RECORDS SUMMARY | 2024-09-10 04:10 | XMS_ITS | Encounter Summary ---
Author Organization [facility] Address [address] [facility] [address] [place] [address] Care Team Providers Care Manufacturing Manager Name Role Phone Miscellaneous, Not In File Unavailable Unava Carlos Brown MD Primary Care Provid er Encounter Details Date Type Department Care Team (Late st Contact Info) Description 10/26/[address] 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 He needs then sent into [facility] [place] BER'S ASSISTANT documented in this encounter Plan of Treatment Scheduled Procedures Name Priority Associated Diagnoses Date/Ti me COLONOSCOPY Open Access Diverticulitis documented as of this encounter Visit Diagnoses Not on filedocumented in this encounter Discontinued Medications Medication Sig Discontinue Reason Start Date End Da te ondansetron (ZOFRAN) 4 mg tablet Take 4 mg by mouth every 8 (eight) hours 09/27/2020 10/26/2020 documented as of this encounter Care Teams Manufacturing Manager Relationship Specialty Start Date End Date Carlos Gamboa MD [facility] [address] [place] [address] PCP - General Family Medicine 09/30/20 05/07/21 Miscellaneous, Not In File 11/16/19 documented as of this encounter
--- OUTSIDE RECORDS SUMMARY | 2024-09-10 04:10 | XMS_ITS | Encounter Summary ---
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
--- OUTSIDE RECORDS SUMMARY | 2024-09-10 04:10 | XMS_ITS | Encounter Summary ---
Author Organization [facility] Healthcare Address [address] [place] [address] Care Team Providers Care Pen Tester Name Role Phone No, Physician Primary Care Provider [phone] Encounter Details Date Type Department Care Team (Late st Contact Info) Description 02/28/2019 7:14 PM CDT - 02/28/2019 9:00 PM CDT Hospital Encounter [facility] [address] [place], [place] [id number] Unknown, Notinfanita Adam, Ángel Becerril, CUTTING ROOM SUPERVISOR [address] [facility] [place] [address] Discharge Disposition: Discharge to home or self care Social History Tobacco Use Types Packs/Day Years Used Date Smoking Tobacco: Former Smokeless Tobacco: Never Alcohol Use Standard Drinks/Week Comments No 0 (1 standard drink = 0.6 oz pur e alcohol) Sex and Gender Information Value Date Recorded Sex Assigned at Not on file 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 Gender Identity Not on file Sexual Orientation Not on file documented as of this encounter Last Filed Vital Signs Vital Sign Reading Time Taken Comments Blood Pressure 147/90 02/28/2019 7:39 PM CDT Pulse 67 02/28/2019 7:39 PM CDT Temperature 36.6 ??C (97.8 ??F) 02/28/2019 7:39 PM CD T Respiratory Rate - - Oxygen Saturation 99% 02/28/2019 7:39 PM CDT Inhaled Oxygen Concentration - - Weight 130.7 kg (288 lb 2.3 oz) 02/28/2019 7:39 PM CDT Height 188 cm (6' 2 ) 02/28/2019 7:39 PM CDT Body Mass Index 37 02/28/2019 7:39 PM CDT documented in this encounter Medications [...] on filedocumented in this encounter Care Teams Pen Tester Relationship Specialty Start Date End Date No, Physician PCP - General 09/15/17 03/16/19 documented as of this encounter
--- OUTSIDE RECORDS SUMMARY | 2024-09-10 04:10 | XMS_ITS | Encounter Summary ---
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
--- OUTSIDE RECORDS SUMMARY | 2024-09-10 04:10 | XMS_ITS | Encounter Summary ---
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
--- OUTSIDE RECORDS SUMMARY | 2024-09-10 04:10 | XMS_ITS | Encounter Summary ---
Author Organization [facility] Address [address] [facility] [address] [place] [address] Care Team Providers Care Workforce Management Manager Name Role Phone Miscellaneous, Not In File Unavailable Unava ilable Carlos Gamboa MD Primary Care Provid er Encounter Details Date Type Department Care Team (Late st Contact Info) Description 11/01/2020 Telephone [facility] Family Medicine [address] [phone] Carlos Gamboa MD [address] [address] Social History Tobacco Use Types [...] on file 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 Grijalva, pt's informed we will fax over the records and that office will contact the pt to schedule an appt. Pt to call our office back with appt info once obtained. LUMBER GRADER * Telephone Encounter - Joaquina Lara - 11/07/2020 7:56 AM CST Called and left pt a detailed message regarding this referral and the only GI provider that does take his insurance is Dr. Grijalva, informed pt to call our office if it is ok to fax over his records for review and appt. LUMBER GRADER * Telephone Encounter - Carlos Gamboa MD - 11/06/2020 4:18 PM DRY LUMBER GRADER GI consult (re) placed LUMBER GRADER * Telephone Encounter - Landy Price LPN - 11/06/2020 3:43 PM DRY LUMBER GRADER Please place referral LUMBER GRADER * Telephone Encounter - Ilda Araiza - 11/06/2020 3:10 PM CST Pt states this is the 3rd time he has called asking to be referred to a gi provider. Pt would like a call back. [facility] [phone] Thanks huseyin LUMBER GRADER * Telephone Encounter - Yee Kelly - 11/01/2020 9:50 AM CST Pt. Called and followed up on previous request for a referral to Gastroenterology preferably who accept [employer] Insurance. Pls advise at [phone]. LUMBER GRADER documented in this encounter Plan of Treatment Scheduled Procedures Name Priority Associated Diagnoses Date/Ti me COLONOSCOPY Open Access Diverticulitis documented as of this encounter Visit Diagnoses Not on filedocumented in this encounter Care Teams Workforce Management Manager Relationship Specialty Start Date End Date Carlos Gamboa MD [address] [place] [address] PCP - General Family Medicine 09/30/20 05/07/21 Miscellaneous, Not In File 11/16/19 documented as of this encounter
--- OUTSIDE RECORDS SUMMARY | 2024-09-10 04:10 | XMS_ITS | Encounter Summary ---
Author Organization [facility] Healthcare Address [address] [place] [address] Care Team Providers Care Housing Director Name Role Phone Miscellaneous, Not In File Unavailable Unava ilable Charanjit Sheffield MD Primary Care Provider [phone] Encounter Details Date Type Department Care Team (Late st Contact Info) Description 02/19/2020 2:39 PM CDT Hospital Encounter [facility] Charanjit Sheffield MD [address] [place], [place] [id number] Social History Tobacco Use Types Packs/Day Years [...] on file Legal Sex Male 1:[address]PER Gender Identity Not on file Sexual Orientation [...] sulfates (SUPREP BOWEL KIT) 17.5-3.13-1.6 gram recon solnIndications:[place] el Evacuation Mix bottle of Suprep with water and drink at 4pm, repeat and drink at 10pm day before procedure 354 mL 06/25/2017 1 documented as of this encounter Plan of Treatment Scheduled Procedures Name Priority Associated Diagnoses Date/Ti me COLONOSCOPY Open Access Diverticulitis documented as of this encounter Procedures Procedure Name Priority Date/Time Associated Diagnosis Comments XR RADIUS ULNA RIGHT 2 VIEWS 02/19/2020 2:43 PM CDT XR ELBOW RIGHT 3 OR MORE VIEWS 02/19/2020 2:43 PM CDT XR HUMERUS RIGHT 2 OR MORE VIEWS 02/19/2020 2:43 PM CDT XR SHOULDER RIGHT 2 OR MORE VIEWS 02/19/2020 2:43 PM CDT documented in this encounter Results * XR Radius Ulna Right 2 Views (02/19/2020 2:43 PM CDT) Anatomical Region Laterality Modality Upper Extremities, Forearm Right Radio graphic Imaging 02/21/2020 5:02 AM CDT Narrative 02/21/2020 5:04 AM CDT Patient Name: CARLOS KELLY ?Ordering Dr: Charanjit Sheffield A ?? D.O.B: 1970 ? Exam Date: 02/19/20 ?? 1443 ?? Age: 50 ?Sex: Male ? MR#: [id number] ?? Loc: ? RADIOLOGY REPORT ?? Order #[id number] ?? Radiology ? Forearm RT 2 View ? Signed ?? EXAM DESCRIPTION: ?? Elbow RT 3 View Min; Forearm RT 2 View ? REASON FOR STUDY: ?? Elbow pain and tenderness ? TECHNIQUE: ?? AP, lateral, and oblique radiographic views acquired of the right ?? elbow and two views of the right forearm submitted. ? COMPARISON: ?? None ? FINDINGS: ? BONES/JOINTS: ??No acute fracture, malalignment or osseous abnormalities. Joint ?? spaces are maintained. ? SOFT TISSUES: ??Unremarkable. ? OTHER: ??No radiopaque foreign body ? IMPRESSION: ?? No acute osseous abnormality identified involving the right ?? elbow or right forearm. ? THIS IS AN ELECTRONICALLY VERIFIED FINAL REPORT ?? 02/21/2020 5:04 AM - Electronically signed by Raza Henderson M.D. ?? Raza Henderson M.D. ? RH ?? D: ??02/21/2020 5:04 AM ?? T: ? Report ID: [id number] ?? Reading Location: ??[id number] ? REPORT ELECTRONICALLY SIGNED IN OTHER VENDOR SYSTEM ?? Resulting Agency Comment O Procedure Note Raza Henderson MD - 02/21/2020 Patient Name: CARLOS KELLYcori Dr: Charanjit Sheffield MD D.O.B: 1970 Exam Date: 02/19/20 1443 Age: 50 Sex: Male MR[facility] [id number] [id number] Order #[id number] Radiology Forearm RT 2 View Signed EXAM DESCRIPTION: Elbow RT 3 View Min; Forearm RT 2 View REASON FOR STUDY: Elbow pain and tenderness TECHNIQUE: AP, lateral, and oblique radiographic views acquired of theright elbow and two views of the right forearm submitted. COMPARISON: None FINDINGS: BONES/JOINTS: No acute fracture, malalignment or osseous abnormalities.Joint spaces are maintained. SOFT TISSUES: Unremarkable. OTHER: No radiopaque foreign body IMPRESSION: No acute osseous abnormality identified involving the right elbow or right forearm. THIS IS AN ELECTRONICALLY VERIFIED FINAL REPORT 02/21/2020 5:04 AM - Electronically signed by Raza Henderson M.D. T: Report ID: [id number] Reading Location: [id number] REPORT ELECTRONICALLY SIGNED IN OTHER VENDOR SYSTEM us Charanjit Sheffield MD IMG XR PROCEDURES Final Res ult * XR Elbow Right 3 or More Views (02/19/2020 2:43 PM CDT) Anatomical Region Laterality Modality Upper Extremities, Elbow Right Radiogr aphic Imaging 02/21/2020 5:02 AM CDT Narrative 02/21/2020 5:04 AM CDT Patient Name: CARLOS KELLY ?Ordering Dr: Charanjit Sheffield MD ?? D.O.B: 1970 ? Exam Date: 02/19/20 ?? 1443 ?? Age: 50 ?Sex: Male ? MR#: [id number] ?? Loc: ? RADIOLOGY REPORT ?? Order #[id number] ?? Radiology ? Elbow RT 3 View Min ? Signed ?? EXAM DESCRIPTION: ?? Elbow RT 3 View Min; Forearm RT 2 View ? REASON FOR STUDY: ?? Elbow pain and tenderness ? TECHNIQUE: ?? AP, lateral, and oblique radiographic views acquired of the right ?? elbow and two views of the right forearm submitted. ? COMPARISON: ?? None ? FINDINGS: ? BONES/JOINTS: ??No acute fracture, malalignment or osseous abnormalities. Joint ?? spaces are maintained. ? SOFT TISSUES: ??Unremarkable. ? OTHER: ??No radiopaque foreign body ? IMPRESSION: ?? No acute osseous abnormality identified involving the right ?? elbow or right forearm. ? THIS IS AN ELECTRONICALLY VERIFIED FINAL REPORT ?? 02/21/2020 5:04 AM - Electronically signed by Raza Henderson M.D. ?? Raza Henderson M.D. ? RH ?? D: ??02/21/2020 5:04 AM ?? T: ? Report ID: [id number] ?? Reading Location: ??[id number] ? REPORT ELECTRONICALLY SIGNED IN OTHER VENDOR SYSTEM ?? Resulting Agency Comment O Procedure Note Raza Henderson MD - 02/21/2020 Patient Name: CARLOS KELLY Dr: Charanjit Sheffield MDO.B: 1970 Exam Date: 02/19/20 1443 Age: 50 Sex: Male MR#: [id number] [id number] Order #[id number] Radiology Elbow RT 3 View Min Signed EXAM DESCRIPTION: Elbow RT 3 View Min; Forearm RT 2 View REASON FOR STUDY: Elbow pain and tenderness TECHNIQUE: AP, lateral, and oblique radiographic views acquired of theright elbow and two views of the right forearm submitted. COMPARISON: None FINDINGS: BONES/JOINTS: No acute fracture, malalignment or osseous abnormalities.Joint spaces are maintained. SOFT TISSUES: Unremarkable. OTHER: No radiopaque foreign body IMPRESSION: No acute osseous abnormality identified involving the right elbow or right forearm. THIS IS AN ELECTRONICALLY VERIFIED FINAL REPORT 02/21/2020 5:04 AM - Electronically signed by Raza Conte.D. T: Report ID: [id number] Reading Location: [id number] REPORT ELECTRONICALLY SIGNED IN OTHER VENDOR SYSTEM us Charanjit Sheffield MD IMG XR PROCEDURES Final Res ult * XR Shoulder Right 2 or More Views (02/19/2020 2:43 PM CDT) Anatomical Region Laterality Modality Upper Extremities, Shoulder Right Radi ographic Imaging 02/21/2020 5:01 AM CDT Narrative 02/21/2020 5:02 AM CDT Patient Name: ROBIN,CARLOS Law ?Ordering Dr: Charanjit Sheffield MD ?? D.O.B: 1970 ? Exam Date: 02/19/20 ?? 1443 ?? Age: 50 ?Sex: Male ? MR#: [id number] ?? Loc: ? RADIOLOGY REPORT ?? Order #[id number] ?? Radiology ? Shoulder RT 2Vw Min (STANDARD) ? Signed ?? EXAM DESCRIPTION: ?? Humerus Right 2 View Min; Shoulder RT 2Vw Min (STANDARD) ? REASON FOR STUDY: ?? RIGHT SHOULDER PAIN X 1 WEEK, TENDER TO TOUCH ? TECHNIQUE: ?? AP and lateral views were acquired of the right humerus and three ?? views of the right shoulder submitted. ? COMPARISON: ?? None ? FINDINGS: ? BONES: ??No acute fracture. No suspicious bone lesions. ? SOFT TISSUES: ??Unremarkable. ? OTHER: ??No other significant finding. ? IMPRESSION: ?? No acute osseous abnormality identified involving the right ?? shoulder or right humerus. ? THIS IS AN ELECTRONICALLY VERIFIED FINAL REPORT ?? 02/21/2020 5:02 AM - Electronically signed by Raza Henderson M.D. ?? Raza Henderson M.D. ? RH ?? D: ??02/21/2020 5:02 AM ?? T: ? Report ID: [id number] ?? Reading Location: ??[id number] ? REPORT ELECTRONICALLY SIGNED IN OTHER VENDOR SYSTEM ?? Resulting Agency Comment O Procedure Note Raza Henderson MD - 02/21/2020 Patient Name: CARLOS KELLY Dr: Charanjit Sheffield MD DGwenO.B: 1970 Exam Date: 02/19/20 1443 Age: 50 Sex: Male MR#: [id number] Loc: RADIOLOGY REPORT Order #[id number] Radiology Shoulder RT 2Vw Min (STANDARD) Signed EXAM DESCRIPTION: Humerus Right 2 View Min; Shoulder RT 2Vw Min(STANDARD) REASON FOR STUDY: RIGHT SHOULDER PAIN X 1 WEEK, TENDER TO TOUCH TECHNIQUE: AP and lateral views were acquired of the right humerus andthree views of the right shoulder submitted. COMPARISON: None FINDINGS: BONES: No acute fracture. No suspicious bone lesions. SOFT TISSUES: Unremarkable. OTHER: No other significant finding. IMPRESSION: No acute osseous abnormality identified involving the right shoulder or right humerus. THIS IS AN ELECTRONICALLY VERIFIED FINAL REPORT 02/21/2020 5:02 AM - Electronically signed by Raza Henderson M.D. T: Report ID: [id number] Reading Location: [id number] REPORT ELECTRONICALLY SIGNED IN OTHER VENDOR SYSTEM us Charanjit Sheffield MD IMG XR PROCEDURES Final Res ult * XR Humerus Right 2 or More Views (02/19/2020 2:43 PM CDT) Anatomical Region Laterality Modality Upper Extremities, Upper Arm Right Rad iographic Imaging 02/21/2020 5:01 AM CDT Narrative 02/21/2020 5:02 AM CDT Patient Name: CARLOS KLELY ?Ordering Dr: Charanjit Sheffield MD ?? D.O.B: 1970 ? Exam Date: 02/19/20 ?? 1443 ?? Age: 50 ?Sex: Male ? MR#: [id number] ?? Loc: ? RADIOLOGY REPORT ?? Order #[id number] ?? Radiology ? Humerus Right 2 View Min ? Signed ?? EXAM DESCRIPTION: ?? Humerus Right 2 View Min; Shoulder RT 2Vw Min (STANDARD) ? REASON FOR STUDY: ?? RIGHT SHOULDER PAIN X 1 WEEK, TENDER TO TOUCH ? TECHNIQUE: ?? AP and lateral views were acquired of the right humerus and three ?? views of the right shoulder submitted. ? COMPARISON: ?? None ? FINDINGS: ? BONES: ??No acute fracture. No suspicious bone lesions. ? SOFT TISSUES: ??Unremarkable. ? OTHER: ??No other significant finding. ? IMPRESSION: ?? No acute osseous abnormality identified involving the right ?? shoulder or right humerus. ? THIS IS AN ELECTRONICALLY VERIFIED FINAL REPORT ?? 02/21/2020 5:02 AM - Electronically signed by Raza Henderson M.D. ?? Raza Henderson M.D. ? RH ?? D: ??02/21/2020 5:02 AM ?? T: ? Report ID: [id number] ?? Reading Location: ??[id number] ? REPORT ELECTRONICALLY SIGNED IN OTHER VENDOR SYSTEM ?? Resulting Agency Comment O Procedure Note Raza Henderson MD - 02/21/2020 Patient Name: CARLOS KELLY Dr: Charanjit Sheffield MD D.O.B: 1970 Exam Date: 02/19/20 144 Age: 50 Sex: Male MR#: [id number] Loc: RADIOLOGY REPORT Order #[id number] Radiology Humerus Right 2 View Min Signed EXAM DESCRIPTION: Humerus Right 2 View Min; Shoulder RT 2Vw Min(STANDARD) REASON FOR STUDY: RIGHT SHOULDER PAIN X 1 WEEK, TENDER TO TOUCH TECHNIQUE: AP and lateral views were acquired of the right humerus andthree views of the right shoulder submitted. COMPARISON: None FINDINGS: BONES: No acute fracture. No suspicious bone lesions. SOFT TISSUES: Unremarkable. OTHER: No other significant finding. IMPRESSION: No acute osseous abnormality identified involving the right shoulder or right humerus. THIS IS AN ELECTRONICALLY VERIFIED FINAL REPORT 02/21/2020 5:02 AM - Electronically signed by Raza Henderson M.D. T: Report ID: [id number] Reading Location: [place] [address] REPORT ELECTRONICALLY SIGNED IN OTHER VENDOR SYSTEM us Charanjit Sheffield MD IMG XR PROCEDURES Final Res ult documented in this encounter Visit Diagnoses Not on filedocumented in this encounter Care Teams Housing Director Relationship Specialty Start Date End Date Charanjit Sheffield MD PCP - General 01/21/20 09/29/20 Miscellaneous, Not In File 11/16/19 documented as of this encounter
--- OUTSIDE RECORDS SUMMARY | 2024-09-10 04:10 | XMS_ITS | Encounter Summary ---
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
--- OUTSIDE RECORDS SUMMARY | 2024-09-10 04:10 | XMS_ITS | Encounter Summary ---
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
--- OUTSIDE RECORDS SUMMARY | 2024-09-10 04:10 | XMS_ITS | Encounter Summary ---
Author Organization 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 No / Unsure 11/28/2019 10:38 PM CDT documented as of this encounter Medications at [...] DAILY BEFORE BREAKFAST 09/22/2019 1 polyethylene glycol (SCONTO DIGITALEYTELY) 236-22.74-6.74 -5.86 gram solutionIndications :Bowel Evacuation Mix [...] sulfates (SUPREP BOWEL KIT) 17.5-3.13-1.6 gram recon solnIndications:Walker el Evacuation Mix bottle of Suprep with water and drink at 4pm, repeat and drink at 10pm day before procedure 354 mL 06/25/2017 1 documented as of this encounter Plan of Treatment Scheduled Procedures Name Priority Associated Diagnoses Date/Ti me COLONOSCOPY Open Access Diverticulitis documented as of this encounter Procedures Procedure Name Priority Date/Time Associated Diagnosis Comments SCAN - LABS 12/07/2019 12:00 AM CDT MISC TEST, FLOOR COLLECT Routine 12/04/2019 1:02 PM CDT documented in this encounter Results * SCAN - LABS (12/07/2019 12:00 AM CDT) Narrative 12/07/2019 12:00 AM CDT Ordered by an unspecified provider. us Historical Provider MD Final Res ult * Misc test, floor collect (12/04/2019 1:02 PM CDT) Ref Lab Test Name covid-19 [facility] Comment: Note: Results via Scanned Reports in EMR or by paper report only. Specimen sent to Reference lab. Results usually in 2-7 days. 12/04/2019 1:02 PM CDT 12/05/2019 10:36 AM CDT Narrative [facility] - 12/11/2019 1:19 PM CDT UNK GRIMALDO F SWAB COVID-19 covid-19 Resulting Agency Comment CLI us Tu Villanueva MD LAB BLOOD ORDERABLES Final R esult [facility] [address] [place] [address], [facility] [phone] documented in this encounter Visit Diagnoses Not on filedocumented in this encounter Care Teams Furnace Repairer Helper Relationship Specialty Start Date End Date Jagdeep Sanford DO [address] [place] [id number] PCP - General Family Medicine 11/16/19 01/20/20 Miscellaneous, Not In File 11/16/19 documented as of this encounter
--- OUTSIDE RECORDS SUMMARY | 2024-09-10 04:10 | XMS_ITS | Encounter Summary ---
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 Thank you. E THEATER USHER * Telephone Encounter - Rashida Gupta MA - 10/17/2020 8:13 AM CST Pt wishes to have his chart set as confidential please. Thank you. E THEATER USHER documented in this encounter Plan of Treatment Scheduled Procedures Name Priority Associated Diagnoses Date/Ti ny COLONOSCOPY Open Access Diverticulitis documented as of this encounter Visit Diagnoses Not on filedocumented in this encounter Care Teams Hammer Driver Relationship Specialty Start Date End Date Carlos Gamboa MD [address] [place] [address] PCP - General Family Medicine 09/30/20 05/07/21 Miscellaneous, Not In File 11/16/19 documented as of this encounter
--- OUTSIDE RECORDS SUMMARY | 2024-09-10 04:10 | XMS_ITS | Encounter Summary ---
Author Organization [facility] Healthcare Address [address] [place] [address] Care Team Providers Care Hopper Attendant Name Role Phone Jagdeep Sanford DO Primary Care Provider Miscellaneous, Not In File Unavailable Unava ilable Reason for Visit * Reason Comments Anxiety Med Refill Encounter Details Date Type Department Care Team (Late st Contact Info) Description 11/16/2019 6:34 AM ORNAMENTAL METALWORK DESIGNER - 11/16/2019 8:00 AM ORNAMENTAL METALWORK DESIGNER Emergency [facility] Emergency Department [address] [place] [address] Ángel Adams MD [facility] [place] [address] Anxiety (Primary Dx) Discharge Disposition: Discharge to [...] on file Legal Sex Male 1:40 AM 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 METALWORK 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 Gender Identity Not on file Sexual Orientation Not on file documented as of this encounter Last Filed Vital Signs Vital Sign Reading Time Taken Comments Blood Pressure 155/94 11/16/2019 7:30 AM ORNAMENTAL METALWORK DESIGNER Pulse 71 11/16/2019 7:45 AM ORNAMENTAL METALWORK DESIGNER Temperature 36.7 ??C (98 ??F) 11/16/2019 6:38 AM ORNAMENTAL METALWORK DESIGNER Respiratory Rate - - Oxygen Saturation 99% 11/16/2019 7:45 AM ORNAMENTAL METALWORK DESIGNER Inhaled Oxygen Concentration - - Weight 109.8 kg (242 lb) 11/16/2019 6:38 AM ORNAMENTAL METALWORK DESIGNER Height 188 cm (6' 2 ) 11/16/2019 6:38 AM ORNAMENTAL METALWORK DESIGNER Body Mass Index 31.07 11/16/2019 6:38 AM ORNAMENTAL METALWORK DESIGNER documented in this encounter Discharge Diagnoses Diagnosis Anxiety disorder, unspecified - ANXIETY DISORDER, UNSPECIFIED Sedative, hypnotic or anxiolytic dependence, uncomplicated (HCC) - SEDATIVE, HYPNOTIC OR ANXIOLYTIC DEPENDENCE, UNCOMPLICATED Post-traumatic stress disorder, unspecified - POST-TRAUMATIC STRESS DISORDER, UNSPECIFIED Major depressive disorder, recurrent, in partial remission (HCC) - MAJOR DEPRESSIVE DISORDER, RECURRENT, IN PARTIAL REMISSION Obesity, unspecified - OBESITY, UNSPECIFIED Type 2 diabetes mellitus without complications (CMS/HCC) (HCC) - TYPE 2 DIABETES MELLITUS WITHOUT COMPLICATIONS Unspecified asthma, uncomplicated - UNSPECIFIED ASTHMA, UNCOMPLICATED Essential (primary) hypertension - ESSENTIAL (PRIMARY) HYPERTENSION Unspecified essential hypertension Unspecified osteoarthritis, unspecified site - UNSPECIFIED OSTEOARTHRITIS, UNSPECIFIED SITE Personal history of nicotine dependence - PERSONAL HISTORY OF NICOTINE DEPENDENCE Family history of ischemic heart disease and other diseases of the circulatory system - FAMILY HISTORY OF ISCHEMIC HEART DISEASE AND OTHER DISEASES OF THE CIRCULATORY SYSTEM Other retirement (current) drug therapy - OTHER ALF (CURRENT) DRUG THERAPY documented in this encounter Discharge Instructions * Discharge Instructions* Ángel Adams MD - 11/16/2019 7:51 AM ORNAMENTAL METALWORK DESIGNER Follow up with Psychiatry for continued treatment of anxiety and depression. Scripts for medicationfor symptoms for anxiety will not be filled thru an emergency department but should be filled and followed by your psychiatrist. MENTAL METALWORK DESIGNER * Attachments The following attachments cannot be sent through Care Everywhere. * Generalized Anxiety Disorder (Golf Club Head Inspector) (Guamanian) documented in this encounter Medications at Time [...] documented in this encounter ED Notes * Onofre Santizo RN - 11/16/2019 7:59 AM CST Pt left without signing discharge paperwork. Onofre Santizo RN 11/16/19 0800 MENTAL METALWORK DESIGNER * Ángel Adams MD - 11/16/2019 7:53 AM CST HPI Chief Complaint Patient presents with ??? Anxiety ??? Med Refill 49-year-old male with a history of recurrent major depressive disorder, anxiety, obesity, benzodiazepine dependence, hypertension, and type 2 diabetes comes to the emergency department with a requestfrom prescription for Ativan because he states he is out of his medication is afraid that he may have a seizure. He denies a history of seizures in the past. He states that he is unable to see a new psychiatrist until the of this month and that his primary care physician will not prescribe benzodiazepines for him. He states that he is fearful that if he does not have his benzodiazepines may have seizures. He states that his last dose of this medication was 2 days ago. Patient History Patient Active Problem List Diagnosis Date Noted ??? Other acute recurrent sinusitis 05/10/2018 ??? Recurrent major depressive disorder, in partial remission ([facility]) 03/12/2017 ??? Anxiety 03/12/2017 ??? Obesity (BMI [...] Review of Systems Constitutional: Negative for chills, diaphoresis and fever. Neurological: Negative for dizziness, weakness and light-headedness. Psychiatric/Behavioral: The patient is nervous/anxious. Physical Exam ED Triage Vitals Temp Pulse Resp BP SpO2 11/16/19 0638 11/16/19 0637 -- 11/16/19 0640 11/16/19 0637 36.7 ??C (98 ??F) 81 (!) 161/102 100 % Temp src Heart Rate Source Patient Position BP Location FiO2 (%) 11/16/19 0638 -- -- -- -- Oral Physical Exam Constitutional: Appearance: Normal appearance. He is obese. HENT: Mouth/Throat: Mouth: Mucous membranes are moist. Eyes: General: No scleral icterus. Right eye: No discharge. Left eye: No discharge. Pupils: Pupils are equal, round, and reactive to light. Cardiovascular: Rate and Rhythm: Normal rate and regular rhythm. Skin: General: Skin is warm and dry. Neurological: General: No focal deficit present. Mental Status: He is alert and oriented to person, place, and time. Psychiatric: Mood and Affect: Mood normal. Behavior: Behavior normal. MDM MDM:Review of medical record shows multiple ED visits in the past month with an intent to obtain prescriptions for Ativan and Xanax. He was here on the 05 of November at [facility] and it is noted in the physician's chart that the patient stated he had an appointment with the psychiatrist on the following . With doses brought to the attention of the patient he denied that hea told anybody that he had an appointment with psychiatrist on the folic . Review of PDMP for [place] and [place] with a finding of prescription for Xanax 1 mg tablets 10. To be taken twicea day having been filled at [facility] in [facility] eye on the of this month, 3 days ago. Review of medical record also shows the patient was seen at [facility] 2 days ago asking for a script for Ativan. When this was brought to the patient's attention he denied all of that. He states that pharmacy is a [place] will not fill scripts for benzodiazepines which I find very hard to believe. Patient was informed that he would not receive a script for benzodiazepines at this time and that he would need to follow up with his psychiatrist in his primary care physician. Intentis to discharge with information on [facility] if he is unable to be seen by his primary care physician or by a psychiatrist. When asked for the name of his new psychiatrist he was unable to give me that name at this time. Attending Summary of Care Anxiety Ángel Adams MD 11/16/19 0801 MENTAL METALWORK DESIGNER * Onofre Santizo RN - 11/16/2019 6:45 AM CST Pt to ed via pov with complaints of medication refill request. Pt reports that his psychiatrist stopped seeing him last month and he is now out of his medication. Pt reports increased anxiety and is concerned that he may have a seizure. Pt is awake, alert and oriented x 3. Pt denies SI/HI. Pt appears to be in no acute distress. Onofre Santizo RN 11/16/19 0696 MENTAL METALWORK DESIGNER * Eunice Garcia RN - 11/16/2019 6:38 AM CST Reports he 'my doctor stopped treating me and now I dont have my anxiety meds until my new appointment on 12/11'. Completely ran out of meds last night. Feeling anxious. Denies SI/HI. MENTAL METALWORK DESIGNER documented in this encounter Plan of Treatment Scheduled Procedures Name Priority Associated Diagnoses Date/Ti me COLONOSCOPY Open Access Diverticulitis documented as of this encounter Visit Diagnoses Diagnosis Anxiety- Primary Anxiety state, unspecified documented in this encounter Care Teams Hopper Attendant Relationship Specialty Start Date End Date Jagdeep Sanford DO [address] [place] [address] PCP - General Family Medicine 11/16/19 01/20/20 Miscellaneous, Not In File 11/16/19 documented as of this encounter
--- OUTSIDE RECORDS SUMMARY | 2024-09-10 04:10 | XMS_ITS | Encounter Summary ---
Author Organization [facility] Address [address] [facility] [address] [place] [address] Care Team Providers Care Counter Checker Name Role Phone Miscellaneous, Not In File Unavailable Unava ilable Carlos Gamboa MD Primary Care Provid er Reason for Visit * Reason Onset Date Comments medication question 10/18/2020 Encounter Details Date Type Department Care Team (Late st Contact Info) Description 10/18/2020 Telephone [facility] Family Medicine [address] [phone] Carlos Gamboa MD [address] [address] medication question Social History Tobacco Use Types Packs/Day Years [...] on file 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 I spoke with Dr. Gamboa and he is to stop taking the oxybutynin and start the solifenacin. I let the pharmacy know, they v/u. I called the patient and let him know. He v/u. Thank you. Also pt has appointment with Urology on 10-30-20. ICE CLINICAL MANAGER * Telephone Encounter - Carlos Gamboa MD - 10/18/2020 11:48 AM HOSPICE CLINICAL MANAGER Vesicare rx sent ICE CLINICAL MANAGER * Telephone Encounter - Ilda Araiza - 10/18/2020 11:16 AM CST Pt states the oxybutynin 5 mg is not working. Pt took the medication 2 times yesterday and once today and pt is still having frequent urination. Pt is asking if the frequent urination can be caused by DM. Pt is asking if Dr. Gamboa will prescribe Vesicire. [facility] [facility] [phone] Thanks jrsheryl ICE CLINICAL MANAGER documented in this encounter Plan of Treatment Scheduled Procedures Name Priority Associated Diagnoses Date/Ti me COLONOSCOPY Open Access Diverticulitis documented as of this encounter Visit Diagnoses Not on filedocumented in this encounter Care Teams Counter Checker Relationship Specialty Start Date End Date Carlos Gamboa MD [address] [place] [address] PCP - General Family Medicine 09/30/20 05/07/21 Miscellaneous, Not In File 11/16/19 documented as of this encounter
--- OUTSIDE RECORDS SUMMARY | 2024-09-10 04:10 | XMS_ITS | Encounter Summary ---
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
--- OUTSIDE RECORDS SUMMARY | 2024-09-10 04:10 | XMS_ITS | Encounter Summary ---
Author Organization [facility] Facility Care Team Providers Care Edge Molder Name Role Phone Miscellaneous, Not In File Primary Care Provider Unavailable Encounter Details Date Type Department Care Team (Latest Contact Info) Description 11/12/2019 Travel Social History Tobacco Use Types Packs/Day Years Used Date Smoking Tobacco: Former Smokeless Tobacco: Never Alcohol Use Standard Drinks/Week Comments No 0 (1 standard drink = 0.6 oz pur e alcohol) Sex and Gender Information Value Date Recorded Sex Assigned at Not on file Legal Sex Male 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
--- OUTSIDE RECORDS SUMMARY | 2024-09-10 04:10 | XMS_ITS | Encounter Summary ---
Author Organization [facility] Healthcare Address [address] [place] [address] Care Team Providers Care Pipe Straightener Name Role Phone Jagdeep Sanford DO Primary Care Provider [phone] Miscellaneous, Not In File Unavailable Unava ilable Reason for Visit * Reason Comments Anxiety Congestion Encounter Details Date Type Department Care Team ([facility] st Contact Info) Description 11/28/2019 10:33 PM CDT - 11/29/2019 12:[address] 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 No / Unsure 11/28/2019 10:38 PM CDT documented as of this encounter Last Filed Vital Signs Vital Sign Reading Time Taken Comments Blood Pressure 136/78 11/29/2019 12:50 AM CDT Pulse 62 11/29/2019 12:50 AM CDT Temperature - - Respiratory Rate 17 11/29/2019 12:50 AM CDT Oxygen Saturation 94% 11/29/2019 12:50 AM CDT Inhaled Oxygen Concentration - - Weight 119.3 kg (263 lb) 11/28/2019 10:39 PM CDT Height 188 cm (6' 2 ) 11/28/2019 10:39 PM CDT Body Mass Index 33.77 11/28/2019 10:39 PM CDT documented in this encounter Discharge Diagnoses Diagnosis Anxiety disorder, unspecified - ANXIETY DISORDER, UNSPECIFIED Acute upper respiratory infection, unspecified - ACUTE UPPER RESPIRATORY INFECTION, UNSPECIFIED Malingerer (conscious simulation) - 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 SIMULATION] Sedative, hypnotic or anxiolytic dependence, uncomplicated (HCC) - SEDATIVE, HYPNOTIC OR ANXIOLYTIC DEPENDENCE, UNCOMPLICATED Pleurodynia - PLEURODYNIA Painful respiration Unspecified asthma, uncomplicated - UNSPECIFIED ASTHMA, UNCOMPLICATED Type 2 diabetes mellitus without complications (CMS/HCC) (HCC) - TYPE 2 DIABETES MELLITUS WITHOUT COMPLICATIONS Personal history of nicotine dependence - PERSONAL HISTORY OF NICOTINE DEPENDENCE documented in this encounter Discharge Instructions * Attachments The following attachments cannot be sent through Care Everywhere. * Generalized Anxiety Disorder (AfterCare(R) Instructions(ER/ED)) (Barbadian) * URI, Viral, No Abx (Adult) (Barbadian) documented in this encounter Medications at Time [...] sulfates (SUPREP BOWEL KIT) 17.5-3.13-1.6 gram recon solnIndications:[place] el Evacuation Mix bottle of Suprep with water and drink at 4pm, repeat and drink at 10pm day before procedure 354 mL 06/25/2017 1 documented as of this encounter Discharge Disposition Disposition Code Departure Means Destination Discharge to home or self care documented in this encounter ED Notes * Landy Melissa MD - 11/29/2019 12:58 AM CDT HPI Chief Complaint Patient presents with ??? Anxiety ??? Congestion Well-appearing 49-year-old male with history of Asthma, anxiety, type 2 diabetes, benzodiazepine reliance who presents to the emergency department for your URI type symptoms and wanting a refill of his alprazolam. Patient said that he was seen yesterday for symptoms of congestion at an urgent care,had a x-ray of the chest which was negative and a flu swab which was also negative. He said that hewas told not to take any cough syrup because it ???might cause pneumonia?? . Patient says he has been using his albuterol inhaler but it does not work for him. Endorses bilateral subcostal rib pain with deep breaths. Denies fever but endorses chills. Patient's pain concern seems to be that he needs a refill of his alprazolam. He was ???cut off?? from his psychiatrist to have been providing him with 150 xanax monthly. Patient said that he was seen here last week and given Xanax and told if he needed a refill that he should come back to this emergency department and not go elsewhere because he would be considered drug-seeking . [facility] for 12/03. Patient History Patient Active Problem List Diagnosis Date Noted ??? Xanax use disorder, severe, dependence ([facility]) 11/16/2019 ??? Anxiety 11/16/2019 ??? Type 2 [...] Review of Systems Constitutional: Negative for fever. All other systems reviewed and are negative. Physical Exam ED Triage Vitals Temp Pulse Resp BP SpO2 -- 11/28/19 2300 11/28/19 2300 11/28/19 2300 11/28/19 2238 63 17 164/89 99 % Temp src Heart Rate Source Patient Position BP Location FiO2 (%) -- -- -- -- -- Physical Exam Vitals signs and nursing note reviewed. Constitutional: General: He is not in acute distress. Appearance: He is obese. He is not ill-appearing, toxic-appearing or diaphoretic. HENT: Head: Normocephalic. Nose: Nose normal. Mouth/Throat: Mouth: Mucous membranes are moist. Pharynx: No posterior oropharyngeal erythema. Eyes: Extraocular Movements: Extraocular movements intact. Neck: Musculoskeletal: Neck supple. Cardiovascular: Rate and Rhythm: Normal rate and regular rhythm. Pulmonary: Effort: Pulmonary effort is normal. Breath sounds: Normal breath sounds. No wheezing. Abdominal: Palpations: Abdomen is soft. Comments: Round, Obese Musculoskeletal: Right lower leg: No edema. Left lower leg: No edema. Skin: General: Skin is warm and dry. Neurological: General: No focal deficit present. Mental Status: He is alert and oriented to person, place, and time. MDM MDM:49-year-old male with the above past medical history presenting for alprazolam refill and URI symptoms. The patient is generally anxious and continues to check his vitals on the monitor. He keepsasking why if his pulse ox reads 99% why he feels short of air. He continue to challenge me about why I would not provide him with alprazolam and said that he was told by the head of the ED that huyenld come back here to get more and wondered out loud I would not give him any. I told the patient that I would provide him with chlordiazepoxide to prevent withdrawals and Atarax to help with his anxiety but under no circumstances would I gave him a prescription for short-acting benzodiazepine because of their addictive potential, dangerousness and poor treatment for anxiety. He continued to try to convince me that I should prescribe him Xanax. He also wanted to know why he did not have madrigal virus. I was called back to his room multiple times to answer the same question or additional unrelated questions. And I told the patient that he was well, his vital signs were normal that I was not concerned that he had a serious viral illness, asthma exacerbation or any other acute illness thatneeded emergent treatment. Patient offered chlordiazepoxide which he repeatedly declined. Return precautions given, patient discharged to follow-up with his psychiatrist on 12/03 as scheduled. Final diagnoses: Anxiety Chest congestion Upper respiratory tract infection, unspecified type Drug-seeking behavior Benzodiazepine dependence ([facility]) Landy Melissa MD 11/29/19 0453 * Bernie Umana, DOMITILA - 11/28/2019 10:40 PM CDT PATIENT IS REQUESTING A REFILL OF ALPRAZOLAM * Bernie Umana RN - 11/28/2019 10:35 PM CDT PATIENT STATES HE WENT TO URGENT CARE AND HAD A FLU SWAB AND A RAPID STREP AND CHEST XRAY AND ALL WERE NEGATIVE AND HE CALLED [facility] TO SEE IF HE COULD BE TESTED FOR COVID. STATES HIS NURSE TOLD HIM TO GO TO THE ER BECAUSE I AM NOT BREATHING RIGHT . PATIENT HAS NOT HAD ANY RECENT TRAVEL. HAS A PRODUCTIVE COUGH WITH A CLEAR YELLOW SPUTUM. documented in this encounter Miscellaneous Notes * ED Re-evaluation Note - Cheko Romero MD - 11/29/2019 12:58 AM CDT ED Re-evaluation During the course of the day Mr. mcgee has called the emergency department 2 or 3 times asking to speak to the doctor to review his chart and order him Xanax. I explained to him that no one is goingto order him a benzodiazepine without evaluating him. I further explained to him that Dr. tez macias person from our emergency department to write him for Xanax told him to follow up as an outpatient and he would not receive further medication prescriptions until after he sees the doctors at [facility]. Patient continued to call back to find out if this physician had left another physician was here so that he could try again. I have significant concern for benzodiazepine abuse given this behavior. 11/29/19 9:43 PM Cheko Romero MD 11/29/19 2143 documented in this encounter Plan of Treatment Scheduled Procedures Name Priority Associated Diagnoses Date/Ti me COLONOSCOPY Open Access Diverticulitis documented as of this encounter Visit Diagnoses Diagnosis Anxiety- Primary Anxiety state, unspecified Chest congestion Other symptoms involving respiratory system and chest Upper respiratory tract infection, unspecified type Drug-seeking behavior Other, mixed, or unspecified nondependent drug abuse, unspecified Benzodiazepine dependence (HCC) Sedative, hypnotic or anxiolytic dependence, unspecified abuse documented in this encounter Administered Medications Inactive Administered Medications - up to 3 most recent administrations Medication Order MAR Action Action Date Dose Rate Site albuterol 2.5 mg/0.5 mL nebulizer solution 2.5 mg 2.5 mg, nebulization, Once (security incident response engineer), On Wed11/28/19 at 2355, For 1 dose Given 11/29/2019 12:10 AM CDT 2.5 mg documented in this encounter Active and Recently Administered Medications Times are shown in CDT. Scheduled Medication Order 11/27/2019 11/28/2019 11/29/2019 albuterol 2.5 mg/0.5 mL nebulizer solution 2.5 mg (COMPLETED) 2.5 mg, nebulization, Once (security incident response engineer), On Wed11/28/19 at 2355, For 1 dose 0010 (Given - Provid er: Herbie Ramsey RRT) documented in this encounter Orders Medications Ordered That Stevie ht Not Have Been Administered Count Last Ordered Date First Ordered Date albuterol 2.5 mg/0.5 mL nebu lizer solution 2.5 mg 1 11/28/2019 documented in this encounter Care Teams Pipe Straightener Relationship Specialty Start Date End Date Jagdeep Sanford DO [address] [place] [id number] PCP - General Family Medicine 11/16/19 01/20/20 Miscellaneous, Not In File 11/16/19 documented as of this encounter
--- OUTSIDE RECORDS SUMMARY | 2024-09-10 04:10 | XMS_ITS | Encounter Summary ---
Author Organization [facility] Care Team Providers Care Treatment Manager Name Role Phone No, Physician Primary Care Provider [phone] Encounter Details Date Type Department Care Team (Latest Contact Info) Description 11/05/2019 Travel Social History Tobacco Use Types Packs/Day Years Used Date Smoking Tobacco: Former Smokeless Tobacco: Never Alcohol Use Standard Drinks/Week Comments No 0 (1 standard drink = 0.6 oz pur e alcohol) Sex and Gender Information Value Date Recorded Sex Assigned at Not on file Legal Sex Male 1:40 AM INFORMATION ASSOC Gender Identity Not on file Sexual Orientation Not on file documented as of this encounter Plan of Treatment Scheduled Procedures Name Priority Associated Diagnoses Date/Ti me COLONOSCOPY Open Access Diverticulitis documented as of this encounter Visit Diagnoses Not on filedocumented in this encounter Care Teams Treatment Manager Relationship Specialty Start Date End Date No, Physician PCP - General 11/05/19 11/11/19 documented as of this encounter
--- OUTSIDE RECORDS SUMMARY | 2024-09-10 04:10 | XMS_ITS | Encounter Summary ---
Author Organization [facility] Facility Care Team Providers Care Preparation Plant Supervisor Name Role Phone Jagdeep Sanford DO Primary Care Provider [phone] Miscellaneous, Not In File Unavailable Unava ilable Encounter Details Date Type Department Care Team (Latest Contact Info) Description 11/16/2019 Travel Social History Tobacco Use Types Packs/Day [...] on file Legal Sex Male 1:40 AM BUSPERSON Gender Identity Not on file Sexual Orientation Not on file documented as of this encounter Plan of Treatment Scheduled Procedures Name Priority Associated Diagnoses Date/Ti me COLONOSCOPY Open Access Diverticulitis documented as of this encounter Visit Diagnoses Not on filedocumented in this encounter Care Teams Preparation Plant Supervisor Relationship Specialty Start Date End Date Jagdeep Sanford DO [address] [place] [id number] PCP - General Family Medicine 11/16/19 01/20/20 Miscellaneous, Not In File 11/16/19 documented as of this encounter
--- OUTSIDE RECORDS SUMMARY | 2024-09-10 04:10 | XMS_ITS | Encounter Summary ---
Author Organization [facility] Address [address] [facility] [address] [place] [address] Care Team Providers Care Overnight Babysitter Name Role Phone Miscellaneous, Not In File Unavailable Unava ilable Carlos Gamboa MD Primary Care Provid er Encounter Details Date Type Department Care Team (Late st Contact Info) Description 10/29/2020 Telephone [facility] Family Medicine [address] [phone] Carlos Gamboa MD [address] [address] Social History Tobacco Use Types [...] on file Legal Sex Male 1:40 AM HEDGE FUND ACCOUNTANT Gender Identity Not on file Sexual Orientation Not on file documented as of this encounter Miscellaneous Notes * Telephone Encounter - Angi Liz LPN - 10/29/2020 12:18 PM HEDGE FUND ACCOUNTANT Please advise. Patient did give the okay that we can leave detailed message. This is for nursing staff when we call patient back E FUND ACCOUNTANT * Telephone Encounter - Yee Kelly - 10/29/2020 12:10 PM CST Pt called and stated that he will keep his urology appt tomorrow morning. However, He also wanted to point out that he was needing a referral for Gastroenterology. Preferably one that accepts [employer]. Pt. Strongly permits office staff to leave a message on his voice mail, I advised him we only will leave a generic message to call office. E FUND ACCOUNTANT documented in this encounter Plan of Treatment Scheduled Procedures Name Priority Associated Diagnoses Date/Ti me COLONOSCOPY Open Access Diverticulitis documented as of this encounter Visit Diagnoses Not on filedocumented in this encounter Care Teams Overnight Babysitter Relationship Specialty Start Date End Date Carlos Gamboa MD [address] [place] [address] PCP - General Family Medicine 09/30/20 05/07/21 Miscellaneous, Not In File 11/16/19 documented as of this encounter
--- OUTSIDE RECORDS SUMMARY | 2024-09-10 04:10 | XMS_ITS | Encounter Summary ---
Author Organization [facility] Medical [facility] Address [address] [facility] [address] [place] [address] Care Team Providers Care Plasma Center Technician Name Role Phone Miscellaneous, Not In File Unavailable Unava ilable Carlos Gamboa MD Primary Care Provid er Reason for Referral * Consultation (Routine) - Canceled Specialty Diagnoses / Procedures Referred By Redd mobley Referred To Contact Urology Diagnoses Urinary frequency Benign prostatic hyperplasia with weak urinary stream Dysuria Carlos Gamboa MD [address] [place] [address] Phone: tel: fax: Leatha Grier NP Phone: tel: fax: Referral ID Status Reason Start Date Expiration Date Visits Requested Visits Authorized [id number] Canceled Specialty Services Required 10/17/2020 11/16/2021 6 6 Question Answer Please select the performing region: External Order [171] # of visits: 6 ATING SCREED OPERATOR Reason for Visit * Reason Comments Follow-up [place] [facility] f/u for k idney stones. Encounter Details Date Type Department Care Team (Late st Contact Info) Description 10/17/2020 7:30 AM VIBRATING SCREED OPERATOR Office Visit [facility] Family Medicine [address] [phone] Carlos Gamboa MD [address] [place], [place] [phone] Right flank pain (Primary Dx); Benign neoplasm of sigmoid colon; Urinary frequency; Dysuria; Diverticulitis; Benign prostatic hyperplasia with weak urinary stream; Type 2 diabetes mellitus with other specified complication, without long-term current use of insulin ([facility] Social History Tobacco Use Types Packs/Day Years [...] on file Legal Sex Male 1:40 AM 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 OPERATOR Gender Identity Not on file Sexual Orientation Not on file documented as of this encounter Last Filed Vital Signs Vital Sign Reading Time Taken Comments Blood Pressure 144/98 10/17/2020 7:40 AM VIBRATING SCREED OPERATOR Pulse 74 10/17/2020 7:40 AM VIBRATING SCREED OPERATOR Temperature 36.6 ??C (97.8 ??F) 10/17/2020 7:40 AM CS T Respiratory Rate 18 10/17/2020 7:40 AM VIBRATING SCREED OPERATOR Oxygen Saturation 97% 10/17/2020 7:40 AM VIBRATING SCREED OPERATOR Inhaled Oxygen Concentration - - Weight 132.1 kg (291 lb 3.2 oz) 10/17/2020 7:40 AM VIBRATING SCREED OPERATOR Height 188 cm (6' 2 ) 10/17/2020 7:40 AM VIBRATING SCREED OPERATOR Body Mass Index 37.39 10/17/2020 7:40 AM VIBRATING SCREED OPERATOR documented in this encounter Ordered Prescriptions Prescription Sig Dispense Quantity Refills Last Filled Start Date End Date oxybutynin (DITROPAN) 5 mg tabletIndications: Urinary frequency Take 1 tablet (5 mg total) by mouth 2 (two) times a day 60 tablet 5 10/17/2020 ciprofloxacin (CIPRO) 500 mg tabletIndications: Diverticulitis Take 1 tablet (500 mg total) by mouth 2 (two) times a day for 10 days 20 tablet 10/17/2020 10/27/2020 metroNIDAZOLE (FLAGYL) 500 mg tabletIndications: Diverticulitis Take 1 tablet (500 mg total) by mouth 3 (three) times a day for 10 days 30 tablet 10/17/2020 10/27/2020 documented in this encounter Progress Notes * Carlos Gamboa MD - 10/17/2020 7:30 AM CST Subjective/Objective Patient ID: Carlos Mcgee is a 50 y.o. male. Chief Complaint Chief Complaint Patient presents with ??? Follow-up [place] [facility] f/u for kidney stones. HPI The patient has a complex medical history including multiple GI and complaints. There is also history of significant anxiety, particularly healthcare related anxiety. He is here today for follow-up from and 2 ER visits: one at [place], and the second at [facility]. First, the patient was seen at [place] ER on 09/23/20 for R-sided pain, nausea x 1 week. He was diagnosed with renal colic and likely diverticulitis. He was started on Flagyl and Cipro. His symptoms improved but did not resolved. He sought emergency room care again on 10/07/20 for continuing right-sided abdominal/flank pain. A CT was obtained, and shows chronic changes. It showed no active ureteral stone, but did show some smaller stones in the kidneys. It also showed bladder thickening as well as thickening of the sigmoid colon. Diverticulosis was also noted. The ER notes, report, and studies were reviewed. The patient's past medical history, surgical history, family history, and social history were reviewed today. Review of Systems Constitutional: Negative for activity change, appetite change, fatigue and fever. HENT: Negative for congestion, ear pain, rhinorrhea and sore throat. Eyes: Negative for discharge and visual disturbance. Respiratory: Negative for cough, shortness of breath and wheezing. Cardiovascular: Negative for chest pain and palpitations. Gastrointestinal: Positive for abdominal pain and diarrhea. Negative for constipation, nausea and vomiting. Endocrine: Negative for cold intolerance, heat intolerance, polydipsia and polyuria. Genitourinary: Positive for dysuria and frequency. Negative for hematuria and urgency. Musculoskeletal: Negative for arthralgias, joint swelling and myalgias. Skin: Negative for rash. Neurological: Negative for dizziness, weakness, light-headedness and headaches. Psychiatric/Behavioral: Negative for decreased concentration and sleep disturbance. The patient is not nervous/anxious. Physical Exam Vitals signs and nursing note reviewed. Constitutional: General: He is not in acute distress. Appearance: Normal appearance. He is well-developed. He is obese. HENT: Head: Normocephalic and atraumatic. Jaw: There is normal jaw occlusion. Right Ear: Hearing, tympanic membrane, ear canal and external ear normal. Tympanic membrane is not erythematous, retracted or bulging. Tympanic membrane has normal mobility. Left Ear: Hearing, tympanic membrane, ear canal and external ear normal. Tympanic membrane is not retracted or bulging. Tympanic membrane has normal mobility. Nose: Nose normal. No rhinorrhea. Mouth/Throat: Pharynx: Uvula midline. No posterior oropharyngeal erythema. Eyes: General: Lids are normal. Vision grossly intact. Gaze aligned appropriately. Extraocular Movements: Extraocular movements intact. Conjunctiva/sclera: Conjunctivae normal. Pupils: Pupils are equal, round, and reactive to light. Neck: Musculoskeletal: Full passive range of motion without pain, normal range of motion and neck supple. Thyroid: No thyroid mass or thyromegaly. Vascular: No carotid bruit or JVD. Trachea: Trachea and phonation normal. Cardiovascular: Rate and Rhythm: Normal rate and regular rhythm. Pulses: Normal pulses. Heart sounds: Normal heart sounds. No murmur. No friction rub. No gallop. Pulmonary: Effort: Pulmonary effort is normal. Breath sounds: Normal breath sounds and air entry. No wheezing. Abdominal: General: Bowel sounds are normal. There is no distension. Palpations: Abdomen is soft. There is no mass. Tenderness: There is no abdominal tenderness. Musculoskeletal: Normal range of motion. General: No deformity. Right lower leg: No edema. Left lower leg: No edema. Lymphadenopathy: Cervical: No cervical adenopathy. Skin: General: Skin is warm and dry. Capillary Refill: Capillary refill takes less than 2 seconds. Findings: No rash. Neurological: General: No focal deficit present. Mental Status: He is alert and oriented to person, place, and time. Cranial Nerves: Cranial nerves are intact. No cranial nerve deficit. Sensory: Sensation is intact. Motor: Motor function is intact. No abnormal muscle tone. Coordination: Coordination is intact. Coordination normal. Gait: Gait is intact. Gait normal. Deep Tendon Reflexes: Reflexes are normal and symmetric. Reflexes normal. Psychiatric: Attention and Perception: Attention and perception normal. Mood and Affect: Mood and affect normal. Speech: Speech normal. Behavior: Behavior normal. Behavior is cooperative. Thought Content: Thought content normal. Cognition and Memory: Cognition and memory normal. Judgment: Judgment normal. Assessment/Plan Diagnoses and all orders for this visit: Right flank pain (Primary) Benign neoplasm of sigmoid colon Type 2 diabetes mellitus with other specified complication, without long-term current use of insulin ([facility]) Urinary frequency - Ambulatory referral to Urology; Future - oxybutynin (DITROPAN) 5 mg tablet; Take 1 tablet (5 mg total) by mouth 2 (two) times a day Diverticulitis - metroNIDAZOLE (FLAGYL) 500 mg tablet; Take 1 tablet (500 mg total) by mouth 3 (three) times a dayfor 10 days - ciprofloxacin (CIPRO) 500 mg tablet; Take 1 tablet (500 mg total) by mouth 2 (two) times a day for 10 days Benign prostatic hyperplasia with weak urinary stream - Ambulatory referral to Urology; Future Dysuria - Ambulatory referral to Urology; Future Plan: 1. Right flank/abdominal pain: This could be renal colic or it could be related to some bowel issues. He is overdue for an appointment in colonoscopy by his drafter heating and ventilating, and I advised him to getin to see the specialist as soon as possible. Keep hydrated. Treat some presumptive diverticulitis/colitis while awaiting the GI evaluation. 2. Benign neoplasm with sigmoid colon: By history. This would explain the findings in the sigmoid colon on the recent CT, the patient is overdue for arepeat colonoscopy. He needs to follow-up with his GI doctor DANYEL. 3. Urinary frequency and dysuria: Unclear etiology. Differential includes infection, interstitial cystitis, or prostatitis. Discussed the diagnoses, prognoses, and treatment options with the patient. Cipro, used to treat the diverticulitis, should also cover urinary infections. Urology evaluation needed and ordered. 4. Diverticulitis: Likely by history, symptoms are consistent with past episodes. Treat with Cipro and Flagyl. GI consult overdue and the patient needs to follow-up with his drafter heating and ventilating. 5. BPH: Discussed the diagnosis, prognosis, treatment options with the patient. Consider alpha-justine. Neurology consult placed. 6. Diabetes: Sees Dr. Charlotte Mack. He is being treated with diet currently as he is been allergic to most diabetes medications. Weight loss and more exercise needed. ATING SCREED OPERATOR documented in this encounter Plan of Treatment Scheduled Procedures Name Priority Associated Diagnoses Date/Ti vt COLONOSCOPY Open Access Diverticulitis Scheduled Referrals Name Type Priority Associated Diagnoses Orde r Schedule Ambulatory referral to Urology Outpatient Referral Routine Urinary frequency Benign prostatic hyperplasia with weak urinary stream Dysuria Expected: 10/31/2020 (Approximate), Expires: 10/17/2021 documented as of this encounter Visit Diagnoses Diagnosis Right flank pain- Primary Abdominal pain, unspecified site Benign neoplasm of sigmoid colon Urinary frequency Dysuria Diverticulitis Diverticulitis of colon (without mention of hemorrhage) Benign prostatic hyperplasia with weak urinary stream Type 2 diabetes mellitus with other specified complication, without long-term current use of insulin ([facility]) documented in this encounter Discontinued Medications Medication Sig Discontinue Reason Start Date End Da te sodium, potassium & mag sulfates (SUPREP BOWEL KIT) 17.5-3.13-1.6 gram recon solnIndications:Bowel Evacuation Mix bottle of Suprep with water and drink at 4pm, repeat and drink at 10pm day before procedure 06/25/2017 10/17/2020 raNITIdine (ZANTAC) 150 mg tablet Take 150 mg by mouth daily. 10/17/2020 pseudoephedrine-guaifene sin 120-1,200 mg tablet extended release 12 hr Take 1 tablet by mouth 2 (two) times a day. 04/29/2018 10/17/2020 escitalopram (LEXAPRO) 20 mg tablet Take 1 tablet (20 mg total) by mouth daily 01/14/2019 10/17/2020 escitalopram (LEXAPRO) 20 mg tablet Take 1 tablet (20 mg total) by mouth daily. 09/15/2017 10/17/2020 diazePAM (VALIUM) 5 mg tablet Take 1 tablet (5 mg total) by mouth every 12 (twelve) hours as needed for anxiety. 04/22/2018 10/17/2020 chlordiazePOXIDE (LIBRIUM) 25 mg capsule Take 1 capsule (25 mg total) by mouth 4 (four) times a day as needed for anxiety 11/02/2019 10/17/2020 bisacodyl EC (DULCOLAX EC) 5 mg EC tablet Take 4 tablets at 7pm day before procedure 06/30/2017 10/17/2020 azelastine (ASTELIN) 137 mcg (0.1 %) nasal spray Administer 1 spray into each nostril 2 (two) times a day. Use in each nostril as directed 04/29/2018 10/17/2020 promethazine (PHENERGAN) 25 mg tablet Take 25 mg by mouth every 6 hours. 07/17/2016 10/17/2020 polyethylene glycol (GoLYTELY) 236-22.74-6.74 -5.86 gram solutionIndications:Roberto l Evacuation Mix Golytely with water and begin drinking at 4pm and finish all solution by midnight day before procedure 06/30/2017 10/17/2020 omeprazole (PriLOSEC) 20 mg capsule Take 2 capsules (40 mg total) by mouth daily 01/14/2019 10/17/2020 omeprazole (PriLOSEC) 40 mg capsule TAKE 1 CAPSULE BY MOUTH ONCE DAILY BEFORE BREAKFAST 09/22/2019 10/17/2020 olopatadine 0.6 % spray,non-aerosol Administer 2 sprays into affected nostril(s) 2 (two) times a day. 04/29/2018 10/17/2020 olopatadine (PATANOL) 0.1 % ophthalmic solutionIndications:George rgic Conjunctivitis Administer 1 drop into the right eye 2 (two) times a day 11/21/2019 10/17/2020 fluticasone propionate (FLONASE) 50 mcg/actuation nasal spray USE 2 SPRAY(S) IN EACH NOSTRIL ONCE DAILY 10/05/2019 10/17/2020 fluticasone propionate (FLONASE) 50 mcg/actuation nasal spray Administer 1 spray into each nostril daily 11/02/2019 10/17/2020 citalopram (CeleXA) 40 mg tablet Take 1 tablet (40 mg total) by mouth daily for 20 days 03/17/2019 10/17/2020 citalopram (CeleXA) 40 mg tabletIndications:Recurr ent major depressive disorder, in partial remission (HCC) Take 40 mg by mouth daily. 02/25/2017 10/17/2020 atenoloL (TENORMIN) 100 mg tablet Take 100 mg by mouth daily 09/22/2019 10/17/2020 atenolol (TENORMIN) 100 mg tablet Take 1 tablet (100 mg total) by mouth daily for 20 doses 03/17/2019 10/17/2020 amoxicillin (AMOXIL) 875 mg tablet Take 875 mg by mouth 2 (two) times a day. 04/27/2018 10/17/2020 ALPRAZolam (XANAX) 1 mg tabletIndications:Panic Disorder Take 1 tablet (1 mg total) by mouth every 6 (six) hours as needed for anxiety 01/21/2020 10/17/2020 ALPRAZolam (XANAX) 2 mg tablet Take 1 tablet (2 mg total) by mouth 3 (three) times a day as needed for anxiety 11/21/2019 10/17/2020 documented as of this encounter Historical Medications * This list may reflect changes made after this encounter. polyethylene glycol (MIRALAX) 17 gram packet daily TAKE: 1 packet mixed with 8 ounces of fluid, Once a day simethicone (MYLICON) 125 mg chewable tablet 125 mg 4 (four) times a day diphenhydrAMINE (BENADRYL) 25 mg capsule Take 1 tablet/capsul e (25 mg total) by mouth 2 (two) times a day cyclobenzaprine (FLEXERIL) 10 mg tablet 10 mg 06/19/2018 01/18/2024 ondansetron (ZOFRAN) 4 mg tablet Take 4 mg by mouth every 8 (eight) hours 09/27/2020 10/26/2020 ALPRAZolam (XANAX) 2 mg tablet 2 mg Four times daily 06/19/2018 09/20/2022 added in this encounter Care Teams Plasma Center Technician Relationship Specialty Start Date End Date Carlos Gamboa MD [facility] [address] [place] [id number] PCP - General Family Medicine 09/30/20 05/07/21 Miscellaneous, Not In File 11/16/19 documented as of this encounter
--- OUTSIDE RECORDS SUMMARY | 2024-09-10 04:10 | XMS_ITS | Encounter Summary ---
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 I let him know thereis documentation that she did call back at [phone] and left him a VM with PCP's instructions. Pt states he did not get the message. I read him the message and he voiced understanding. He stated he thinks the Azo may be causing some confusion, so he is going to stop taking it for a few days. He also states he thinks he is getting a head cold which may be why he is experiencing lightheadedness, confusion, feeling off balance. I advised him to rest, stay hydrated, eat regularly. Ifhis symptoms worsen or do not resolve he can follow up with PCP. Pt voiced understanding. HER PIECE INSPECTOR documented in this encounter Plan of Treatment Scheduled Procedures Name Priority Associated Diagnoses Date/Ti me COLONOSCOPY Open Access Diverticulitis documented as of this encounter Visit Diagnoses Not on filedocumented in this encounter Care Teams Rubber Process Hand Relationship Specialty Start Date End Date Carlos Gamboa MD [facility] [address] [place] [id number] PCP - General Family Medicine 09/30/20 05/07/21 Miscellaneous, Not In File 11/16/19 documented as of this encounter
--- OUTSIDE RECORDS SUMMARY | 2024-09-10 04:10 | XMS_ITS | Encounter Summary ---
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
--- OUTSIDE RECORDS SUMMARY | 2024-09-10 04:10 | XMS_ITS | Encounter Summary ---
Author Organization [facility] Medical [facility] Address [address] [facility] [address] [place] [address] Care Team Providers Care Meat Service Team Member Name Role Phone Miscellaneous, Not In File Unavailable Unava ilable Carlos Gamboa MD Primary Care Provid er Encounter Details Date Type Department Care Team (Late st Contact Info) Description 10/18/2020 Orders Only [facility] Family Medicine [address] [phone] Carlos Gamboa MD [address] [address] Social History Tobacco Use Types [...] on file 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 Gender Identity Not on file Sexual Orientation Not on file documented as of this encounter Ordered Prescriptions Prescription Sig Dispense Quantity Refills Last Filled Start Date End Date solifenacin (VESIcare) 10 mg tablet Take 1 tablet (10 mg total) by mouth daily 30 tablet 11 10/18/2020 documented in this encounter Progress Notes * Carlos Gamboa MD - 10/18/2020 11:47 AM CST Vesicare rx sent RAFT WORKER documented in this encounter Plan of Treatment Scheduled Procedures Name Priority Associated Diagnoses Date/Ti mi COLONOSCOPY Open Access Diverticulitis documented as of this encounter Visit Diagnoses Not on filedocumented in this encounter Care Teams Meat Service Team Member Relationship Specialty Start Date End Date Carlos Gamboa MD [address] [place] [address] PCP - General Family Medicine 09/30/20 05/07/21 Miscellaneous, Not In File 11/16/19 documented as of this encounter
--- OUTSIDE RECORDS SUMMARY | 2024-09-10 04:10 | XMS_ITS | Encounter Summary ---
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 Gender Identity Not on file Sexual Orientation Not on file documented as of this encounter Last Filed Vital Signs Vital Sign Reading Time Taken Comments Blood Pressure 175/88 12/31/2019 9:48 AM CDT Pulse 72 12/31/2019 9:48 AM CDT Temperature 36.4 ??C (97.5 ??F) 12/31/2019 9:48 AM CD T Respiratory Rate - - Oxygen Saturation 98% 12/31/2019 9:48 AM CDT Inhaled Oxygen Concentration - - Weight 128.6 kg (283 lb 8.2 oz) 12/31/2019 9:48 AM CDT Height 188 cm (6' 2 ) 12/31/2019 9:48 AM CDT Body Mass Index 36.4 12/31/2019 9:48 AM CDT documented in this encounter Medications [...] sulfates (SUPREP BOWEL KIT) 17.5-3.13-1.6 gram recon solnIndications:[place] el Evacuation Mix bottle of Suprep with [...] Date/Time Associated Diagnosis Comments SCAN - LABS 01/01/2020 12:00 AM CDT documented in this encounter Results * SCAN - LABS (01/01/2020 12:00 AM CDT) Narrative 01/01/2020 12:00 AM CDT Ordered by an unspecified provider. us Historical Provider MD Final Res ult documented in this encounter Visit Diagnoses Not on filedocumented in this encounter Care Teams Disability Case Manager Relationship Specialty Start Date End Date Jagdeep Sanford DO [address] [place] [address] PCP - General Family Medicine 11/16/19 01/20/20 Miscellaneous, Not In File 11/16/19 documented as of this encounter
--- OUTSIDE RECORDS SUMMARY | 2024-09-10 04:10 | XMS_ITS | Encounter Summary ---
Author Organization [facility] Medical Group Address [address] [facility] [address] [place] [address] Care Team Providers Care Disability Services Coordinator Name Role Phone Jagdeep Sanford DO Primary Care Provider [phone] Miscellaneous, Not In File Unavailable Unava ilable Encounter Details Date Type Department Care Team (Late st Contact Info) Description 11/16/2019 Telephone [facility] Medical [facility] Primary Care [address] [facility] [address] [place] [address] Jagdeep Sanford DO [address] [address] Social History Tobacco Use Types [...] on file 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 Sanford. The patient stated that hewanted a RX for Xanax and became belligerent and verbally abusive to the provider and staff when the RX was refused. Dr. Sanford advised that patient that she needed to take a closer look at his health condition before prescribing any medications. He became very irrate and was asked to leave the clinic. Dismissal letter prepared and mailed to the patient to be discharged effective immediately based on his behavior. DISTRIBUTOR documented in this encounter Plan of Treatment Scheduled Procedures Name Priority Associated Diagnoses Date/Ti va COLONOSCOPY Open Access Diverticulitis documented as of this encounter Visit Diagnoses Not on filedocumented in this encounter Care Teams Disability Services Coordinator Relationship Specialty Start Date End Date Jagdeep Sanford DO [address] [place] [address] PCP - General Family Medicine 11/16/19 01/20/20 Miscellaneous, Not In File 11/16/19 documented as of this encounter
--- OUTSIDE RECORDS SUMMARY | 2024-09-10 04:10 | XMS_ITS | Encounter Summary ---
Author Organization [facility] Healthcare Address [address] [place] [id number] Care Team Providers Care Cold Type Artist Name Role Phone Cata Clifton VENTURA Primary Care Provider [phone] Reason for Visit * Reason Comments Med Refill Encounter Details Date Type Department Care Team (Late st Contact Info) Description 11/02/2019 1:37 AM EDGER FEEDER - 11/02/2019 2:53 AM EDGER FEEDER Emergency [facility] Emergency Department [address] [place] [address] Merna Berger MD [address] [facility] [address] [place] [address] Anxiety (Primary Dx); Congestion of nasal sinus; Hypertension, unspecified type; Type 2 diabetes mellitus without complication, unspecified whether terminal worker insulin use ([facility]) Discharge Disposition: Discharge to home or self care Social History Tobacco Use Types Packs/Day Years Used Date Smoking Tobacco: Former Smokeless Tobacco: Never Alcohol Use Standard Drinks/Week Comments No 0 (1 standard drink = 0.6 oz pur e alcohol) Sex and Gender Information Value Date Recorded Sex Assigned at Not on file Legal Sex Male 1:40 AM EDGER FEEDER Gender Identity Not on file Sexual Orientation Not on file documented as of this encounter Last Filed Vital Signs Vital Sign Reading Time Taken Comments Blood Pressure 163/88 11/01/2019 11:04 PM EDGER FEEDER Pulse 66 11/01/2019 11:04 PM EDGER FEEDER Temperature 36.7 ??C (98.1 ??F) 11/01/2019 11:[address] Respiratory Rate 16 11/01/2019 11:04 PM EDGER FEEDER Oxygen Saturation 100% 11/01/2019 11:04 PM EDGER FEEDER Inhaled Oxygen Concentration - - Weight 122.9 kg (271 lb) 11/01/2019 11:04 PM EDGER FEEDER Height 188 cm (6' 2 ) 11/01/2019 11:04 PM EDGER FEEDER Body Mass Index 34.79 11/01/2019 11:04 PM EDGER FEEDER documented in this encounter Discharge Diagnoses Diagnosis Anxiety disorder, unspecified - ANXIETY DISORDER, UNSPECIFIED Nasal congestion - NASAL CONGESTION Other diseases of nasal cavity and sinuses Essential (primary) hypertension - ESSENTIAL (PRIMARY) HYPERTENSION Unspecified essential hypertension Type 2 diabetes mellitus without complications (CMS/HCC) (HCC) - TYPE 2 DIABETES MELLITUS WITHOUT COMPLICATIONS Encounter for issue of repeat prescription - ENCOUNTER FOR ISSUE OF REPEAT PRESCRIPTION Post-traumatic stress disorder, unspecified - POST-TRAUMATIC STRESS DISORDER, UNSPECIFIED Sedative, hypnotic or anxiolytic dependence, uncomplicated (HCC) - SEDATIVE, HYPNOTIC OR ANXIOLYTIC DEPENDENCE, UNCOMPLICATED Generalized anxiety disorder - GENERALIZED ANXIETY DISORDER Unspecified osteoarthritis, unspecified site - UNSPECIFIED OSTEOARTHRITIS, UNSPECIFIED SITE Unspecified asthma, uncomplicated - UNSPECIFIED ASTHMA, UNCOMPLICATED Major depressive disorder, recurrent, in partial remission (HCC) - MAJOR DEPRESSIVE DISORDER, RECURRENT, IN PARTIAL REMISSION Diverticulosis of intestine, part unspecified, without perforation or abscess without bleeding - DIVERTICULOSIS OF INTESTINE, PART UNSPECIFIED, WITHOUT PERFORATION OR ABSCESS WITHOUT BLEEDING Personal history of nicotine dependence - PERSONAL HISTORY OF NICOTINE DEPENDENCE Other alf (current) drug therapy - OTHER GROUP HOME (CURRENT) DRUG THERAPY documented in this encounter Discharge Instructions * Discharge Instructions* Merna Berger MD - 11/02/2019 2:29 AM EDGER FEEDER Please take the librium (chlordiazepoxide) as prescribed to prevent withdrawal symptoms. Please follow-up with your primary care doctor to discuss management of your anxiety. Please call the ENT clinic for your congestion, chronic sinusitis symptoms. Please call the Behavioral Health Resources to help find a new Psychiatrist. R FEEDER * Attachments The following attachments cannot be sent through Care Everywhere. * Generalized Anxiety Disorder (Enrollment Management Coordinator) (Colombian) documented in this encounter Medications at Time [...] Date fluticasone propionate (FLONASE) 50 mcg/actuation nasal spray Administer 1 spray into each nostril daily 16 g 11/02/2019 1 chlordiazePOXIDE (LIBRIUM) 25 mg capsule Take 1 capsule (25 mg total) by mouth 4 (four) times a day as needed for anxiety 20 capsule 11/02/2019 1 documented in this encounter Discharge Disposition Disposition Code Departure Means Destination Discharge to home or self care documented in this encounter ED Notes * Merna Berger MD - 11/02/2019 2:44 AM CST HPI Chief Complaint Patient presents with ??? Med Refill 49yo M with PMHx sig for HTN, DMII, RAKESH, PTSD, benzodiazepine dependence presenting with increased anxiety, congestion, and right ear pain. Patient notes that he was recently discharged from his Psychiatrist. Notes that he's been on chronic xanax, and when he was fired he was unable to get a refillof his xanax. Notes that he took his last dose of xanax tonight. Has increasing episodes of anxietyassociated with shortness of breath, chest pressure that is similar to his prior anxiety attacks. Denies SI, HI. Patient also notes that he's had chronic congestion, frequent sinusitis. Has followed with ENT in the past. Notes 1 month of congestion, increased sinus pressure, increased nose drainage that is intermittently bloody. Has been taking flonase without improvement. Had fever x1 yesterday. Also notes yesterday had sore throat, malaise. No fevers today. Patient also notes that he has chronic TMJ pain in the right jaw. Notes that it is typically managed by his chiropractor, but that his chiropractor is currently on vacation. Has had increasing right jaw pain radiating to the right ear for the past 2 weeks since his chiropractor is on vacation. Patient History Patient Active Problem List Diagnosis [...] of Systems Constitutional: Positive for chills and fever. Fevers and chills yesterday HENT: Positive for congestion, ear pain, sinus pressure and sore throat. Eyes: Negative for pain and visual disturbance. Respiratory: Positive for shortness of breath. Negative for cough. Cardiovascular: Positive for chest pain. Negative for palpitations. Gastrointestinal: Negative for abdominal pain and vomiting. Genitourinary: Negative for dysuria and hematuria. Musculoskeletal: Negative for arthralgias and back pain. Skin: Negative for color change and rash. Neurological: Negative for seizures and syncope. Psychiatric/Behavioral: Anxiety All other systems reviewed and are negative. Physical Exam ED Triage Vitals [11/01/19 2304] Temp Pulse Resp BP SpO2 36.7 ??C (98.1 ??F) 66 16 163/88 100 % Temp src Heart Rate Source Patient Position BP Location FiO2 (%) Oral -- -- -- -- Physical Exam Vitals signs and nursing note reviewed. Constitutional: Appearance: He is well-developed. HENT: Head: Normocephalic and atraumatic. Right Ear: Tympanic membrane, ear canal and external ear normal. Left Ear: Tympanic membrane, ear canal and external ear normal. Nose: Congestion present. Comments: Irritated mucous in bilateral nares. Eyes: Conjunctiva/sclera: Conjunctivae normal. Neck: Musculoskeletal: Neck supple. Cardiovascular: Rate and Rhythm: Normal rate and regular rhythm. Heart sounds: Normal heart sounds. No murmur. Pulmonary: Effort: Pulmonary effort is normal. No respiratory distress. Breath sounds: Normal breath sounds. Abdominal: Palpations: Abdomen is soft. Tenderness: There is no abdominal tenderness. Skin: General: Skin is warm and dry. Neurological: Mental Status: He is alert. Comments: CNII-XII grossly intact, moving all extremities, walks with steady gait Psychiatric: Mood and Affect: Mood normal. Behavior: Behavior normal. MDM MDM:High concern for viral URI, moderate concern for chronic sinusitis, low concern for acute bacterial sinusitis, high concern for anxiety, low concern for acute benzo withdrawal, low concern for ACS. PLAN: 1) EKG 2) librium ED Course as of Nov 02 333 Time: 11/02 238 Comment: Patient refusing the librium, stating that he wants me to take the librium out of his record. I don't even want that your prescribed me librium in my record. I won't take the medicine, and when I seize, I'm going to come right back to this hospital. Discussed extensively how librium can reduce seizure risk, but that we do not refill xanax prescriptions. Patient understands, notes that he still will not take the librium. Patient has capacity, understands the risks. Will discharge. By: Merna Berger MD Final diagnoses: Anxiety Congestion of nasal sinus Hypertension, unspecified type Type 2 diabetes mellitus without complication, unspecified whether alf insulin use ([facility]) Merna Berger MD 11/02/19333 R FEEDER * Layne Sibley RN - 11/01/2019 11:04 PM CST Pt added multiple complaints as triage progressed, pt added complaints of sinus infection and left ear pain. At the end of triage pt added complaint of chest Pain. EKG ordered and done. Pt states he did have some chiropractic work done that may have caused pain but since he was here he wanted it checked out. R FEEDER * Layne Sibley RN - 11/01/2019 11:01 PM CST PT also complaining of sinus infection and left ear pain R FEEDER * Layne Sibley RN - 11/01/2019 10:56 PM CST Pt states he is out of his psych meds . Pt state he is in between DOCS. Needs med refill R FEEDER documented in this encounter Plan of Treatment Scheduled Procedures Name Priority Associated Diagnoses Date/Ti me COLONOSCOPY Open Access Diverticulitis documented as of this encounter Procedures Procedure Name Priority Date/Time Associated Diagnosis Comments ECG 12-LEAD STAT 11/01/2019 11:17 PM EDGER FEEDER documented in this encounter Results * ECG 12 lead (11/01/2019 11:17 PM EDGER FEEDER) 11/01/2019 11:1 7 PM EDGER FEEDER Narrative [facility] - 11/02/2019 8:10 AM EDGER FEEDER Vent Rate: 65 bpm RR Interval: 919 msec NM Interval: 160 msec QRS Duration: 99 msec QT Interval: 370 msec QTC Interval: 381 msec P-R-T [place]: -5 - 22 - -5 degrees SINUS RHYTHM NONSPECIFIC T-WAVE ABNORMALITY BORDERLINE ECG Electronically Signed By: Phan Payan DO [facility] us Merna Berger MD ECG ORDERABLES Final Res ult [facility] documented in this encounter Visit Diagnoses Diagnosis Anxiety- Primary Anxiety state, unspecified Congestion of nasal sinus Other diseases of nasal cavity and sinuses Hypertension, unspecified type Type 2 diabetes mellitus without complication, unspecified whether terminal worker insulin use (HCC) documented in this encounter Active and Recently Administered Medications Times are shown in EDGER FEEDER. Scheduled Medication Order 10/31/2019 11/01/2019 11/02/2019 chlordiazePOXIDE (LIBRIUM) capsule 50 mg 50 mg, oral, Once, On Radha 11/02/19 at 0226, For 1 dose 0249 (Not Given - Pr ovider: Layne Sibley RN - Reason: Patient/family refused) documented in this encounter Orders Medications Ordered That Stevie ht Not Have Been Administered Count Last Ordered Date First Ordered Date chlordiazePOXIDE (LIBRIUM) capsule 50 mg 1 11/02/2019 documented in this encounter Care Teams Cold Type Artist Relationship Specialty Start Date End Date Cata Clifton NP PCP - General 03/17/19 11/04/19 documented as of this encounter
--- OUTSIDE RECORDS SUMMARY | 2024-09-10 04:10 | XMS_ITS | Encounter Summary ---
Author Organization [facility] Healthcare Address [address] [place] [id number] Care Team Providers Care Office Cleaner Name Role Phone Miscellaneous, Not In File Primary Care Provider Unavailable Reason for Visit * Reason Comments Anxiety Encounter Details Date Type Department Care Team (Latest Contact Info) Description 11/12/2019 10:20 PM SPORTS NUTRITIONIST - 11/13/2019 1:19 AM SPORTS NUTRITIONIST Hospital Encounter [facility] Emergency Department [address] [place] [id number] Regina Daniels MD [address] [place] [address] Anxiety (Primary Dx); Encounter for medication refill [...] on file Legal Sex Male 1:40 AM SPORTS NUTRITIONIST Gender Identity Not on file Sexual Orientation Not on file documented as of this encounter Last Filed Vital Signs Vital Sign Reading Time Taken Comments Blood Pressure 162/92 11/13/2019 12:45 AM SPORTS NUTRITIONIST Pulse 67 11/13/2019 1:00 AM SPORTS NUTRITIONIST Temperature 36.2 ??C (97.2 ??F) 11/12/2019 1 0:23 PM SPORTS NUTRITIONIST Respiratory Rate 16 11/12/2019 10:2 3 PM SPORTS NUTRITIONIST Oxygen Saturation 96% 11/13/2019 1:00 AM SPORTS NUTRITIONIST Inhaled Oxygen Concentration - - Weight 132.1 kg (291 lb 3.2 oz) 020 10:23 PM SPORTS NUTRITIONIST Height 185.4 cm (6' 1 ) 11/12/2019 10:2 3 PM SPORTS NUTRITIONIST Body Mass Index 38.42 11/12/2019 10:23 PM SPORTS NUTRITIONIST documented in this encounter Discharge Diagnoses Diagnosis Other specified anxiety disorders - OTHER SPECIFIED ANXIETY DISORDERS Encounter for issue of repeat prescription - ENCOUNTER FOR ISSUE OF REPEAT PRESCRIPTION Essential (primary) hypertension - ESSENTIAL (PRIMARY) HYPERTENSION Unspecified essential hypertension Type 2 diabetes mellitus without complications (CMS/HCC) (HCC) - TYPE 2 DIABETES MELLITUS WITHOUT COMPLICATIONS Personal history of nicotine dependence - PERSONAL HISTORY OF NICOTINE DEPENDENCE documented in this encounter Discharge Instructions * Discharge Instructions* Peggy Miguel NP - 11/13/2019 1:00 AM SPORTS NUTRITIONIST Rest and stay hydrated. Call your primary care doctor in the morning to arrange follow-up care. TS NUTRITIONIST TS NUTRITIONIST * Attachments The following attachments cannot be sent through Care Everywhere. * Generalized Anxiety Disorder (AfterCare(R) Instructions(ER/ED)) (Faroese) documented in this encounter Medications at Time [...] documented in this encounter ED Notes * Peggy Miguel NP - 11/13/2019 1:05 AM CST HPI Chief Complaint Patient presents with ??? Anxiety HPI This is a 49 year male with a history of HTN, type II diabetes, anxiety, and benzodiazepine dependence who presents for complaints of anxiety. He reports feeling like he is nervous and that he is ???crawling out of his skin?? . He notes associated dizziness, nausea, frontal headache, and fatigue. He notes that he was recently discharged from his psychiatrist on 10/20. He states that he now only has1 tablet of Xanax left. The last time he had Xanax was yesterday. Denies SI or HI. Denies CP and SOB. Patient was seen in the ED on 11/02 and 11/05 for these complaints. He was offered Librium on 11/02 and denied it. He stated that he wanted the Librium ???out of his record?? . He claimed on 11/05 that he had an appointment with his new psychiatrist on 11/09, however he denies seeing a new psychiatrist at this time. He tells me he is seeing a new psychiatrist next Wednesday. States his PCP won't prescribe benzos for him. Review of medication dispense history in [facility] shows: Patient had Xanax 10 tabs filled on 10/18/2019; 50 tabs filled on 10/20/2019; 16 tabs filled on 11/06/2019; 5 tabs filled on 11/09/2019. Patient History Patient Active Problem List Diagnosis Date Noted ??? Other acute recurrent sinusitis 05/10/2018 ??? Recurrent major depressive disorder, in partial remission (CMS/HCC) 03/12/2017 ??? Anxiety 03/12/2017 ??? Obesity (BMI 30-39.9) 03/12/2017 ??? Benzodiazepine dependence (CMS/[facility]) 03/12/2017 ??? Essential hypertension 03/12/2017 ??? Allergic [...] of Systems Review of Systems Constitutional: No fever, no chills. Eyes: No visual changes, eye pain or discharge. ENMT: No hearing deficits, pain, discharge or infections. No neck pain or stiffness. Cardiac: No chest pain, SOB or edema. Respiratory: No cough or respiratory distress. GI: See HPI. : No dysuria, frequency or burning. MS: No myalgia, joint pain or back pain. Neuro:See HPI. Skin: No skin rash. All other systems negative except as noted above Physical Exam Physical Exam VITAL SIGNS: Reviewed. CONSTITUTIONAL: Well-appearing; obese male; in no apparent distress HEAD: Normocephalic; atraumatic EYES: PERRLA, EOM intact; conjunctiva and sclera are clear bilaterally. ENT: Mucus membranes moist. CARD: RRR; no murmurs, rubs, or gallops. RESP: Normal respiratory effort; clear to auscultation in all lobes ABD: Soft and non-distended; non-tender. Normal bowel sounds. MS: Moves all extremities. No edema. Distal pulses intact. SKIN: No rash over extremities, warm and dry. NEURO: Alert, and oriented x 4. Normal sensation and strength in bilateral upper and lower extremities. Ambulates without difficulty. No focal deficits. PSYCH: Normal affect. Normal mood. [facility] ED Course as of Nov 12 134 Time: 11/13 15 Comment: Review of records shows pt has had 81 tabs of xanax prescribed and filled from 10/18-11/09. On September 20 he had 150 tabs filled. He has had multiple past ED visits for xanax most recently 11/02 and 11/05. He was offered Librium at one visit to help prevent seizures while being off xanax but he refused. By: Peggy Miguel NP Time: 11/12 114 Comment: I had an extensive conversation with this patient about our strict policy to not refill controlled substances for patients who are on them chronically. I explained to him that he will need to follow up with Psychiatry or discussed this with his primary care doctor but that these medications will not be refilled in the ED. He voiced concern about seizures and I offered him Librium howeverhe states he does not want to take Librium. I offered him Atarax for his anxiety and he declined this as well stating he did not want to take any medications he had taken before. I encouraged him to call his primary care doctor in the morning and his new psychiatrist to try to expedite care. His vit al signs are stable. He is neurologically intact. Exam is unremarkable. He was discharged home in stable condition. By: Peggy Miguel NP [facility] Number of Diagnoses or Management Options Anxiety: Encounter for medication refill: Diagnosis management comments: 49-year-old male presents to the ED for evaluation of anxiety and for a Xanax refill. DC home, follow up outpatient with PCP and Psychiatry. Amount and/or Complexity of Data Reviewed Review and summarize past medical records: yes (I reviewed the patient's past medical history and this is summarized in the workup tab as well as the HPI. This includes reviewing his prescription history and recent ED visits.) Vitals: 11/13/19 0100 BP: Pulse: 67 Resp: Temp: SpO2: 96% No orders to display Labs Reviewed - No data to display Anxiety Encounter for medication refill I, Ann Valdez, am scribing for, and in the presence of, Peggy Miguel NP. I, Peggy Miguel NP, have personally performed the services described in the documentation, reviewedthe documentation, as recorded by the scribe in my presence, and it accurately and completely records my words and actions. Peggy Miguel NP 11/13/19 0142 TS NUTRITIONIST * Elise Burciaga RN - 11/12/2019 10:20 PM CST Patient to ED c/o anxiety. States, My doctor won't return any of my calls, so I called my liquor inspector and I'm suing him for malpractice. TS NUTRITIONIST documented in this encounter Plan of Treatment Scheduled Procedures Name Priority Associated Diagnoses Date/Ti ks COLONOSCOPY Open Access Diverticulitis documented as of this encounter Visit Diagnoses Diagnosis Anxiety- Primary Anxiety state, unspecified Encounter for medication refill documented in this encounter Care Teams Office Cleaner Relationship Specialty Start Date End Date Miscellaneous, Not In File PCP - General 11/12/19 0 documented as of this encounter
--- OUTSIDE RECORDS SUMMARY | 2024-09-10 04:10 | XMS_ITS | Encounter Summary ---
Author Organization [facility] Healthcare Address [address] [place] [address] Care Team Providers Care Forest Fire Management Officer Name Role Phone Miscellaneous, Not In File Unavailable Unava Charanjit Wilburn MD Primary Care Provider [phone] Reason for Visit * Reason Comments Anxiety Encounter Details Date Type Department Care Team ([facility] st Contact Info) Description 01/21/2020 5:28 PM CDT - 01/21/2020 6:34 PM CDT Emergency [facility] Emergency Department [address] [place] [address] Hardik Brunson MD [address] [facility] [address] [place], [place] [id number] Panic disorder (Primary Dx); Benzodiazepine dependence ([facility]) Discharge Disposition: Discharge to home or self [...] on file 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 Gender Identity Not on file Sexual Orientation Not on file documented as of this encounter Last Filed Vital Signs Vital Sign Reading Time Taken Comments Blood Pressure 158/91 01/21/2020 5:35 PM CDT Pulse 66 01/21/2020 5:35 PM CDT Temperature 37.3 ??C (99.2 ??F) 01/21/2020 6:27 PM CD T Respiratory Rate 18 01/21/2020 5:25 PM CDT Oxygen Saturation 99% 01/21/2020 5:35 PM CDT Inhaled Oxygen Concentration - - Weight - - Height - - Body Mass Index - - documented in this encounter Discharge Diagnoses Diagnosis Panic disorder (episodic paroxysmal anxiety) - PANIC DISORDER [EPISODIC PAROXYSMAL ANXIETY] Sedative, hypnotic or anxiolytic dependence, uncomplicated (HCC) - SEDATIVE, HYPNOTIC OR ANXIOLYTIC DEPENDENCE, UNCOMPLICATED Nicotine dependence, cigarettes, uncomplicated - NICOTINE DEPENDENCE, CIGARETTES, UNCOMPLICATED documented in this encounter Discharge Instructions * Discharge Instructions* Hardik Brunson MD - 01/21/2020 6:18 PM CDT Alprazolam 4 times daily as needed. Please note, this was prescribed for you on a 1 time basis, until you see your psychiatrist this . You may not return to the emergency department for refills of this medication. * Attachments The following attachments cannot be sent through Care Everywhere. * Panic Disorder (Discharge Care) (Uzbek) documented in this encounter Medications at Time [...] sulfates (SUPREP BOWEL KIT) 17.5-3.13-1.6 gram recon solnIndications:[place] Evacuation Mix bottle of Suprep with water and drink at 4pm, repeat and drink at 10pm day before procedure 354 mL 06/25/2017 1 documented as of this encounter Ordered Prescriptions Prescription Sig Dispense Quantity Refills Last Filled Start Date End Date ALPRAZolam (XANAX) 1 mg tabletIndications: Panic Disorder Take 1 tablet (1 mg total) by mouth every 6 (six) hours as needed for anxiety 14 tablet 01/21/2020 1 documented in this encounter Discharge Disposition Disposition Code Departure Means Destination Discharge to home or self care documented in this encounter ED Notes * Hardik Brunson MD - 01/21/2020 6:34 PM CDT HPI Chief Complaint Patient presents with ??? Anxiety 49-year-old man with known anxiety/panic disorder and benzodiazepine dependence presents with complaint of increasing anxiety since running out of Xanax approximately 24 hours ago. He has an appointment with a psychiatrist on January 24. He has been on Xanax for 22 years, states that he has had a great deal of difficulty obtaining a psychiatrist. He blames his health insurance plan for this,although there is documentation the record that there are psychiatrists that he could potentially see in the past but did not follow through. HPI Patient History Patient Active Problem List Diagnosis Date Noted ??? Xanax use disorder, severe, dependence ([facility]) 11/16/2019 ??? Anxiety 11/16/2019 ??? Type 2 diabetes mellitus with other specified complication ([facility]) 11/16/2019 ??? Severe obesity (BMI 35.0-35.9 with comorbidity) ([facility]) 11/16/2019 ??? Other acute recurrent sinusitis 05/10/2018 ??? Recurrent major depressive disorder, in partial remission ([facility]) 03/12/2017 ??? Anxiety 03/12/2017 ??? Obesity (BMI [...] Last attempt to quit: 1995 Years since quittin.3 ??? Smokeless tobacco: Never Used Substance Use Topics ??? Alcohol use: Not Currently ??? Drug use: Never Social History Social History Narrative Merged History Encounter Patient is . He lives independently. He is employed Review of Systems CONSTITUTIONAL: No fever or chills. MUSCULOSKELETAL: No back pain. Complains of neck pain, sees a chiropractor for this. HEMATOLOGIC: No clotting disorder. NEUROLOGIC: No unusual headaches or lateralizing symptoms. All other systems negative except as noted above Review of Systems Physical Exam ED Triage Vitals Temp Pulse Resp BP SpO2 01/21/20 1725 01/21/20 1725 01/21/20 1725 01/21/20 1735 01/21/20 1725 36.5 ??C (97.7 ??F) 80 18 158/91 97 % Temp src Heart Rate Source Patient Position BP Location FiO2 (%) -- -- -- -- -- VITALS: Reviewed. CONSTITUTIONAL: Nontoxic-appearing, anxious HEAD: Normocephalic; atraumatic EYES: Conjunctiva and sclera are clear bilaterally. RESP: Normal respiratory effort. NEURO: Alert, lucid; grossly non-lateralizing exam PSYCH: Normal affect. No homicidal/suicidal ideation. Physical Exam [facility] ED Course as of Jan 21 2236 Time: 01/21 2236 Comment: I agreed to provide him with enough alprazolam to make it to his psychiatry appointment onThursday. He was notified that he cannot have his Xanax refilled here again. By: Hardik Brunson MD Final diagnoses: Panic disorder Benzodiazepine dependence (CMS/HCC) Hardik Brunson MD 01/21/202235 * Nadeem Solo RN - 01/21/2020 5:42 PM CDT Pt c/o anxiety, states he usually takes alprazolam Denies SI/HI Pt says he has an upcoming appointment this with psychiatrist documented in this encounter Plan of Treatment Scheduled Procedures Name Priority Associated Diagnoses Date/Ti nh COLONOSCOPY Open Access Diverticulitis documented as of this encounter Visit Diagnoses Diagnosis Panic disorder- Primary Panic disorder without agoraphobia Benzodiazepine dependence (HCC) Sedative, hypnotic or anxiolytic dependence, unspecified abuse documented in this encounter Administered Medications Inactive Administered Medications - up to 3 most recent administrations Medication Order MAR Action Action Date Dose Rate Site ALPRAZolam (XANAX) tablet 1 mg 1 mg, oral, Once, On 01/21/20 at 1812, For 1 dose Given 01/21/2020 6:23 PM CDT 1 mg documented in this encounter Active and Recently Administered Medications Times are shown in CDT. Scheduled Medication Order 01/19/2020 01/20/2020 01/21/2020 ALPRAZolam (XANAX) tablet 1 mg (COMPLETED) 1 mg, oral, Once, On 01/21/20 at 1812, For 1 dose 1823 (Given - Provid er: Nadeem Solo RN) documented in this encounter Orders Medications Ordered That Stevie ht Not Have Been Administered Count Last Ordered Date First Ordered Date ALPRAZolam (XANAX) tablet 1 mg 1 01/21/2020 documented in this encounter Care Teams Forest Fire Management Officer Relationship Specialty Start Date End Date Charanjit Sheffield MD PCP - General 01/21/20 09/29/20 Miscellaneous, Not In File 11/16/19 documented as of this encounter
--- OUTSIDE RECORDS SUMMARY | 2024-09-10 04:10 | XMS_ITS | Encounter Summary ---
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
--- OUTSIDE RECORDS SUMMARY | 2024-09-10 04:10 | XMS_ITS | Encounter Summary ---
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 Gender Identity Not on file Sexual Orientation Not on file documented as of this encounter Ordered Prescriptions Prescription Sig Dispense Quantity Refills Last Filled Start Date End Date omeprazole (PriLOSEC) 40 mg capsule Take 1 capsule (40 mg total) by mouth daily 30 capsule 5 10/17/2020 4 documented in this encounter Progress Notes * Carlos Gamboa MD - 10/17/2020 10:03 AM CST Omeprazole rx sent SCHOOL MATHEMATICS TEACHER documented in this encounter Plan of Treatment Scheduled Procedures Name Priority Associated Diagnoses Date/Ti id COLONOSCOPY Open Access Diverticulitis documented as of this encounter Visit Diagnoses Not on filedocumented in this encounter Discontinued Medications Medication Sig Discontinue Reason Start Date End Da te omeprazole (PriLOSEC) 40 mg capsule Take 1 capsule (40 mg total) by mouth daily. Reorder 03/15/2017 10/17/2020 documented as of this encounter Care Teams Cardiac Care Nurse Relationship Specialty Start Date End Date Carlos Gamboa MD [address] [place] [address] PCP - General Family Medicine 09/30/20 05/07/21 Miscellaneous, Not In File 11/16/19 documented as of this encounter
--- OUTSIDE RECORDS SUMMARY | 2024-09-10 04:10 | XMS_ITS | Encounter Summary ---
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 Gender Identity Not on file Sexual Orientation [...] sulfates (SUPREP BOWEL KIT) 17.5-3.13-1.6 gram recon solnIndications:Everson el Evacuation Mix bottle of Suprep with water and drink at 4pm, repeat and drink at 10pm day before procedure 354 mL 06/25/2017 1 documented as of this encounter Plan of Treatment Scheduled Procedures Name Priority Associated Diagnoses Date/Ti fl COLONOSCOPY Open Access Diverticulitis documented as of this encounter Procedures Procedure Name Priority Date/Time Associated Diagnosis Comments XR SPINE CERVICAL COMPLETE 4 OR 5 VW 01/22/2020 10:09 AM CDT XR CHEST PA LATERAL 2 VIEWS 01/22/2020 10:09 AM CDT TSH+FREE T4 Routine 01/22/2020 9:58 AM CDT CBC WITH AUTO DIFFERENTIAL Routine 01/22/2020 9:58 AM CDT T3, TOTAL Routine 01/22/2020 9:58 AM CDT HEMOGLOBIN A1C Routine 01/22/2020 9:58 AM CDT LIPID PANEL Routine 01/22/2020 9:58 AM CDT COMPREHENSIVE METABOLIC PANEL Routine 01/22/2020 9:58 AM CDT URINALYSIS AND REFLEX TO MICROSCOPIC AND CULTURE Routine 01/22/2020 8:56 AM CDT documented in this encounter Results * XR Spine Cervical Complete 4 or 5 Views (01/22/2020 10:09 AM CDT) Anatomical Region Laterality Modality Spine N/A Radiographic Katarzyna ging 01/22/2020 2:00 PM CDT Narrative 01/22/2020 2:01 PM CDT Patient Name: CARLOS KELLY ?Ordering Dr: Charanjit Sheffield MD ?? D.O.B: 1970 ? Exam Date: 01/22/20 ?? 1009 ?? Age: 49 ?Sex: Male ? MR#: [id number] ?? Loc: ? RADIOLOGY REPORT ?? Order #[id number] ?? Radiology ? Cervical Spine 4 View Min ? Signed ?? EXAM DESCRIPTION: ?? Cervical Spine 4 View Min ? REASON FOR STUDY: ??M54.2 ??J45.909; Neck pain and pain around shoulder blades ?? for approx 7 yrs ? TECHNIQUE: ??8 radiographs of the cervical spine were obtained with frontal, ?? bilateral oblique, lateral, open-mouth, and swimmer's projections. ? COMPARISON: ??04/27/2012 ? FINDINGS: ? There is no definite evidence of acute fracture or subluxation involving the ?? cervical spine. ??There is stable mild reversal of the normal cervical lordotic ?? curvature. ??There are multilevel degenerative changes cervical spine with mild ?? disc space narrowing, mild endplate osteophytosis, and uncovertebral ?? arthropathy, which causes varying degrees of neural foraminal narrowing. ??The ?? atlantoaxial interval is grossly well maintained. ??The visualized prevertebral ?? soft tissues are grossly stable. ? IMPRESSION: ? 1. ??Mild multilevel cervical spondylosis without definite evidence of acute ?? fracture or subluxation. ? THIS IS AN ELECTRONICALLY VERIFIED FINAL REPORT ?? 01/22/2020 2:01 PM - Electronically signed by Adonay Andrew D.O. ?? Adonay Andrew D.O. ? PS ?? D: ??01/22/2020 2:01 PM ?? T: ? Report ID: [id number] ?? Reading Location: ??[id number] ? REPORT ELECTRONICALLY SIGNED IN OTHER VENDOR SYSTEM ?? Resulting Agency Comment O Procedure Note Adonay Andrew DO - 01/22/2020 Patient Name: CARLOS KELLY Dr: Charanjit Sheffield MD, D.O.B: 1970 Exam Date: 01/22/20 1009 Age: 49 Sex: Male MR#: [id number] Loc: RADIOLOGY REPORT Order #[id number] Radiology Cervical Spine 4 View Min Signed EXAM DESCRIPTION: Cervical Spine 4 View Min REASON FOR STUDY: M54.2 J45.909; Neck pain and pain around shoulderblades for approx 7 yrs TECHNIQUE: 8 radiographs of the cervical spine were obtained withfrontal, bilateral oblique, lateral, open-mouth, and swimmer's projections. COMPARISON: 04/27/2012 FINDINGS: There is no definite evidence of acute fracture or subluxation involvingthe cervical spine. There is stable mild reversal of the normal cervicallordotic curvature. There are multilevel degenerative changes cervical spine withmild disc space narrowing, mild endplate osteophytosis, and uncovertebral arthropathy, which causes varying degrees of neural foraminal narrowing.The atlantoaxial interval is grossly well maintained. The visualizedprevertebral soft tissues are grossly stable. IMPRESSION: 1. Mild multilevel cervical spondylosis without definite evidence ofacute fracture or subluxation. THIS IS AN ELECTRONICALLY VERIFIED FINAL REPORT 01/22/2020 2:01 PM - Electronically signed by Adonay Andrew D.O. PS T: Report ID: [id number] Reading Location: [place] [address] REPORT ELECTRONICALLY SIGNED IN OTHER VENDOR SYSTEM us Charanjit Sheffield MD IMG XR PROCEDURES Final Res ult * XR Chest Pa Lateral 2 Views (01/22/2020 10:09 AM CDT) Anatomical Region Laterality Modality Body, Chest N/A Radiographic Katarzyna ging 01/22/2020 1:25 PM CDT Narrative 01/22/2020 1:25 PM CDT Patient Name: CARLOS KELLY ?Ordering Dr: Charanjit Sheffield MD ?? D.O.B: 1970 ? Exam Date: 01/22/20 ?? 1009 ?? Age: 49 ?Sex: Male ? MR#: [id number] ?? Loc: ? RADIOLOGY REPORT ?? Order #[id number] ?? Radiology ? Chest 2 Views ? Signed ?? EXAM DESCRIPTION: ??Chest 2 Views ? REASON FOR STUDY: ??M54.2 ??J45.909; ??Neck pain and pain around shoulder blades ?? for approx 7 years ? TECHNIQUE: ??Frontal and lateral radiographic views of the chest acquired. ? COMPARISON: ??03/26/2019 ? FINDINGS: ? The heart size is upper limits of normal. ??The pulmonary vasculature and ?? mediastinum are grossly stable. ??There is no definite evidence of a ?? pneumothorax. ??There is no definite evidence of focal consolidation or pleural ?? effusion. ? There is a mild dextroscoliotic curvature of the spine with degenerative ?? changes. ??Postsurgical clips are noted in the upper abdomen. ? IMPRESSION: ??No acute cardiopulmonary abnormality. ? THIS IS AN ELECTRONICALLY VERIFIED FINAL REPORT ?? 01/22/2020 1:25 PM - Electronically signed by Adonay Andrew D.O. ?? Adonay Andrew D.O. ? PS ?? D: ??01/22/2020 1:25 PM ?? T: ? Report ID: [id number] ?? Reading Location: ??[id number] ? REPORT ELECTRONICALLY SIGNED IN OTHER VENDOR SYSTEM ?? Resulting Agency Comment O Procedure Note Adonay Andrew DO - 01/22/2020 Patient Name: CARLOS KELLY Dr: Charanjit Sheffield MD D.O.B: 1970 Exam Date: 01/22/20 1009 Age: 49 Sex: Male MR#: [id number] Loc: RADIOLOGY REPORT Order #[id number] Radiology Chest 2 Views Signed EXAM DESCRIPTION: Chest 2 Views REASON FOR STUDY: M54.2 J45.909; Neck pain and pain around shoulderblades for approx 7 years TECHNIQUE: Frontal and lateral radiographic views of the chest acquired. COMPARISON: 03/26/2019 FINDINGS: The heart size is upper limits of normal. The pulmonary vasculature and mediastinum are grossly stable. There is no definite evidence of a pneumothorax. There is no definite evidence of focal consolidation orpleural effusion. There is a mild dextroscoliotic curvature of the spine with degenerative changes. Postsurgical clips are noted in the upper abdomen. IMPRESSION: No acute cardiopulmonary abnormality. THIS IS AN ELECTRONICALLY VERIFIED FINAL REPORT 01/22/2020 1:25 PM - Electronically signed by Adonay REGAN T: Report ID: [id number] Reading Location: [place] [address] REPORT ELECTRONICALLY SIGNED IN OTHER VENDOR SYSTEM us Charanjit Sheffield MD IMG XR PROCEDURES Final Res ult * T3, total (01/22/2020 9:58 AM CDT) Total T3 1.43 0.80 - 2.00 ng/mL [facility] 01/22/2020 9:58 AM CDT 01/22/2020 10:14 AM CDT Narrative Resulting Agency Comment CLI Charanjit Sheffield MD LAB BLOOD ORDERABLES Final Result Performing Organization Address [facility] [place] [address], [facility] [phone] * TSH+Free T4 (01/22/2020 9:58 AM CDT) TSH 3.630 0.27 - 4.20 uIU/mL [facility] Free T4 1.28 0.93 - 1.70 ng/dL [facility] 01/22/2020 9:58 AM CDT 01/22/2020 10:14 AM CDT Narrative Resulting Agency Comment CLI Charanjit Sheffield MD LAB BLOOD ORDERABLES Final Result Performing Organization Address [facility] [place] [address], [facility] [phone] * (ABNORMAL) Hemoglobin A1c (01/22/2020 9:58 AM CDT) Hemoglobin A1c % 6.2(H) 4.0 - 5.6 % [facility] Comment: ADA 2016 GUIDELINES: ??Initial Diagnostic Criteria ? HbA1c Result: ?Interpretation: ?<5.7% ? Normal ?5.7-6.4% ?At risk for diabetes mellitus ?>=6.5% ?Consistent with diabetes mellitus ??Diabetes monitoring ? Target value (ADA Recommended) ?? <7% 01/22/2020 9:58 AM CDT 01/22/2020 10:14 AM CDT Narrative Resulting Agency Comment CLI us Charanjit Sheffield MD LAB BLOOD ORDERABLES Final Result Performing Organization Address [facility]/ZIP Co sc Phone Number [facility] [address] [place] [address], [facility] [phone] * (ABNORMAL) Lipid panel (01/22/2020 9:58 AM CDT) Triglycerides 173(H) 0 - 149 mg/dL [facility] Comment: National Lipid Association/NCEP Guidelines: ?? Normal ?< 150 mg/dL ?? Borderline high ?? 150-199 mg/dL ?? High ?200-499 mg/dL ?? Very High ? >=500 mg/dL Cholesterol 152 0 - 199 mg/dL [facility] Comment: National Lipid Association/NCEP Guidelines: Desirable ? < 200 mg/dL Borderline high: ??200-239 mg/dL High Risk: ?>=240 mg/dL HDL Cholesterol 22 mg/dL [facility] Comment: Reference Ranges: ? Males: >=40 mg/dL ? Females: >=50 mg/dL LDL Cholesterol, Calc 95 0 - 129 mg/dL [facility] Comment: National Lipid Association/NCEP Guidelines: ??Optimal ? < 100 mg/dL ??Near Optimal ?100-129 mg/dL ??Borderline high 130-159 mg/dL ??High ?>=160 mg/dL Cholesterol/HDL Ratio 6.9 [facility] Comment: Optimal ??< 3.5:1 High ? > 5:1 01/22/2020 9:58 AM CDT 01/22/2020 10:14 AM CDT Narrative Resulting Agency Comment CLI us Charanjit Sheffield MD LAB BLOOD ORDERABLES Final Result [facility] [address] [place] [address], [facility] [phone] * (ABNORMAL) Comprehensive metabolic panel (01/22/2020 9:58 AM CDT) Sodium 141 135 - 145 mmol/L [facility] Potassium 3.3 3.3 - 5.1 mmol/L [facility] Chloride 103 96 - 108 mmol/L [facility] Carbon Dioxide 26 22 - 32 mmol/L [facility] Anion Gap 12 7 - 16 [facility] Glucose 106(H) 70 - 100 mg/dL [facility] BUN 8 8 - 25 mg/dL [facility] Creatinine 0.8 0.5 - 1.3 mg/dL [facility] Comment: NOTE: Estimated GFR (Cockroft-Gault) will NOT be calculated unless patient Height and Weight were entered. Also, Kidney Disease Stage (GFR) and Estimated GFR (Cockroft-Gault) will NOT be calculated if Creatinine result is <0.2. Kidney Disease Stage >90 mL/MIN [facility] Comment: NOTE; ??The GFR is an estimated [...] mL/min ? Kidney failure or on dialysis Calcium 8.9 8.6 - 10.3 mg/dL [facility] Total Protein 7.3 6.4 - 8.3 g/dL [facility] Albumin 4.2 3.5 - 5.0 g/dL [facility] Globulin 3.1 2.3 - 3.5 gm/dL [facility] Albumin/Globulin Ratio 1.4 1.1 - 1.8 [facility] Total Bilirubin 1.3(H) 0.0 - 1.2 mg/dL [facility] AST 41(H) 0 - 40 U/L [facility] ALT 53(H) 0 - 41 U/L [facility] Alkaline Phosphatase 70 40 - 129 U/L [facility] 01/22/2020 9:58 AM CDT 01/22/2020 10:14 AM CDT Narrative Resulting Agency Comment CLI us Charanjit Sheffield MD LAB BLOOD ORDERABLES Final Result [facility] [address] [place] [address], [facility] [phone] * (ABNORMAL) CBC with auto differential (01/22/2020 9:58 AM CDT) WBC 5.7 3.8 - 9.9 X10 3/ul [facility] RBC 5.64 4.30 - 5.80 x10 6/ul [facility] Hemoglobin 13.8 13.0 - 17.5 g/dL [facility] Hct 43.3 38.9 - 50.3 % [facility] MCV 76.8(L) 81.3 - 96.4 fl [facility] MCH 24.5(L) 27.1 - 33.3 pg [facility] MCHC 31.9(L) 32.3 - 35.7 g/dl [facility] RDW 16.3(H) 11.1 - 14.9 % [facility] Plt Count 166 150 - 400 x10 3/ul [facility] MPV 9.4 9.1 - 12.3 fl [facility] Neut % 59.8 % [facility] Immature Gran % 0.4 % [facility] Lymph % 29.2 % [facility] Piatt % 7.3 % [facility] Eos % 2.8 % [facility] AUTO BASO % 0.5 % [facility] NEUTROPHIL ABS # 3.4 1.7 - 6.5 x10 3/ul [facility] Immature Gran # 0.0 0.0 - 0.1 x10 3/ul [facility] Absolute Lymphs (auto) 1.7 0.8 - 3.3 x10 3/ul [facility] Absolute Monos (auto) 0.4 0.2 - 0.8 x10 3/ul [facility] Absolute Eos (auto) 0.2 0.0 - 0.5 x10 3/ul [facility] BASOPHIL ABS # 0.0 0.0 - 0.1 x10 3/ul [facility] Nucleat RBC Rel Count 0.0 #/100WBC [facility] NRBC abs 0.00 0.00 - 0.01 x10 3/ul [facility] Absolute Neutrophils 3,400 200 - 8,000 /ul [facility] 01/22/2020 9:58 AM CDT 01/22/2020 10:14 AM CDT Narrative Resulting Agency Comment CLI us Charanjit Sheffield MD LAB BLOOD ORDERABLES Final Result [facility] [address] [place] [address], [facility] [phone] * (ABNORMAL) Urinalysis reflex to microscopic and culture (01/22/2020 8:56 AM CDT) Ur Collection Type CLEAN CATCH [facility] Ur Culture Indicated? C S NOT INDICATED [facility] Urine Color YELLOW YELLOW [facility] Urine Clarity CLEAR CLEAR [facility] Urine Glucose (UA) NORMAL NORMAL mg/dL [facility] Urine Bilirubin NEGATIVE NEGATIVE mg/dl [facility] Urine Ketones NEGATIVE NEGATIVE mg/dL [facility] Ur Specific [place] 1.013 1.005 - 1.025 [facility] Urine Blood NEGATIVE NEGATIVE mg/dl [facility] Urine pH 6.0 5.0 - 8.0 [facility] Urine Protein NEGATIVE NEGATIVE mg/dL [facility] Urine Urobilinogen 2(A) NORMAL mg/dL [facility] Urine Nitrite NEGATIVE NEGATIVE [facility] Ur Leukocyte Esterase NEGATIVE NEGATIVE Arlen/ul [facility] Ur Microscopic Review Not Indicated [facility] Urine RBC <1 0 - 2 /HPF [facility] Urine WBC <1 0 - 2 /HPF [facility] Urine Mucus RARE /LPF [facility] 01/22/2020 8:56 AM CDT 01/22/2020 10:28 AM CDT Narrative [facility] - 01/22/2020 10:48 AM CDT Clean catch Resulting Agency Comment CLI us Charanjit Sheffield MD LAB MICROBIOLOGY - GENERAL ORDERABLES Final Result [facility] [address] [phone] documented in this encounter Visit Diagnoses Not on filedocumented in this encounter Care Teams Roller Shop Supervisor Relationship Specialty Start Date End Date Charanjit Sheffield MD PCP - General 01/21/20 09/29/20 Miscellaneous, Not In File 11/16/19 documented as of this encounter
--- OUTSIDE RECORDS SUMMARY | 2024-09-10 04:10 | XMS_ITS | Encounter Summary ---
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 ING CASE MANAGER * Telephone Encounter - Carlos Gamboa MD - 10/21/2020 1:06 PM HOUSING CASE MANAGER It is OK to take the AZO until he sees Urology, but stop it the day before, so it doesn't affect any test he will run. ING CASE MANAGER * Telephone Encounter - Angi Liz LPN - 10/21/2020 10:28 AM HOUSING CASE MANAGER Per patients request okay to leave a detailed message if he does not answer. ING CASE MANAGER * Telephone Encounter - Angi Liz LPN - 10/21/2020 10:18 AM HOUSING CASE MANAGER Spoke with patient and he stated that he was a bit nauseated last night. He stated that when he takes the AZO it throws his equilibrium off. He is wanting to know if he can take the AZO until he see's the urologist on the . He would be taking it for a total of 2 weeks if okay. Please advise, thank you. ING CASE MANAGER * Telephone Encounter - Yee Kelly - 10/21/2020 8:31 AM CST Pt called this morning stating that He's been taking the AZO for about a week and he feels that it's throwing his equilibrium off, he also developed nausea and so he's taken his Zofran, pt is wondering if it's safe for him to keep taking the AZO until he sees the Urologist on 10-20-2020. He is still having pain urinating. Pls advise at [phone] ING CASE MANAGER documented in this encounter Plan of Treatment Scheduled Procedures Name Priority Associated Diagnoses Date/Ti me COLONOSCOPY Open Access Diverticulitis documented as of this encounter Visit Diagnoses Not on filedocumented in this encounter Care Teams Special Crimes Investigator Relationship Specialty Start Date End Date Carlos Gamboa MD [address] [place] [address] PCP - General Family Medicine 09/30/20 05/07/21 Miscellaneous, Not In File 11/16/19 documented as of this encounter
--- OUTSIDE RECORDS SUMMARY | 2024-09-10 04:11 | XMS_ITS | Encounter Summary ---
Author Organization [facility] Address [address] [place] [address] Care Team Providers Care Metal Temperer Name Role Phone No, Physician Primary Care Provider [phone] Encounter Details Date Type Department Care Team (Late st Contact Info) Description 04/29/2018 Telephone [facility] [phone] Kelley Fatima MA Social History Tobacco Use Types Packs/Day Years Used Date Smoking Tobacco: Former Smokeless Tobacco: Never Alcohol Use Standard Drinks/Week Comments No 0 (1 standard drink = 0.6 oz pur e alcohol) Sex and Gender Information Value Date Recorded Sex Assigned at Not on file 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 Heath was covered by the insurance. He was not sure if they hadit in stock but would check. I called the pt back and spoke with him. I informed him that it was sent and they pharmacy will give him a call when it was ready. Pt thought he has already tried the nasal spray and he had some sideeffects to it but wasn't sure. He was going to check and then call back. Pt was informed to leave amessage on my voicemail since we are in [place] today. Pt informed to call with any other questions. * Telephone Encounter - Minal Henderson MA - 04/29/2018 12:45 PM CDT Called and spoke with the Pharmacist. Patanase was not covered. Per Dr. Laird Astelin was send over instead. * Telephone Encounter - Kelley Fatima MA - 04/29/2018 12:[address] [facility] his insurance is not covering the medication pt would like new prescription sent to pharmacy. VALENTINO Carr documented in this encounter Plan of Treatment Scheduled Procedures Name Priority Associated Diagnoses Date/Ti me COLONOSCOPY Open Access Diverticulitis documented as of this encounter Visit Diagnoses Not on filedocumented in this encounter Care Teams Metal Temperer Relationship Specialty Start Date End Date No, Physician PCP - General 09/15/17 03/16/19 documented as of this encounter
--- OUTSIDE RECORDS SUMMARY | 2024-09-10 04:11 | XMS_ITS | Encounter Summary ---
Author Organization [facility] Healthcare Address [address] [place] [address] Care Team Providers Care Level Vial Inspector Name Role Phone Raza Gabriel MD Primary Care Provider [phone] No, Physician Primary Care Provider [phone] Reason for Visit * Reason Comments Med Refill Nausea Encounter Details Date Type Department Care Team ([facility] st Contact Info) Description 09/14/2017 11:52 PM DIRECTOR OF PRIMARY - 09/15/2017 4:28 AM DIRECTOR OF PRIMARY Emergency [facility] Emergency Department [address] [place] [address] Candice Murray MD [address] [place] [address] Benzodiazepine withdrawal without complication (CMS/HCC) (Primary Dx); Post-nasal drainage; Dental caries Discharge Disposition: Discharge to home or self care Social History Tobacco Use Types Packs/Day Years Used Date Smoking Tobacco: Former Smokeless Tobacco: Never Alcohol Use Standard Drinks/Week Comments No 0 (1 standard drink = 0.6 oz pur e alcohol) Sex and Gender Information Value Date Recorded Sex Assigned at Not on file Legal Sex Male 1:40 AM DIRECTOR OF PRIMARY Gender Identity Not on file Sexual Orientation Not on file documented as of this encounter Last Filed Vital Signs Vital Sign Reading Time Taken Comments Blood Pressure 147/96 09/15/2017 3:44 AM DIRECTOR OF PRIMARY Pulse 66 09/15/2017 3:44 AM DIRECTOR OF PRIMARY Temperature 36.8 ??C (98.3 ??F) 09/15/2017 3:44 AM CS T Respiratory Rate 20 09/15/2017 3:44 AM DIRECTOR OF PRIMARY Oxygen Saturation 99% 09/15/2017 3:44 AM DIRECTOR OF PRIMARY Inhaled Oxygen Concentration - - Weight - - Height - - Body Mass Index - - documented in this encounter Discharge Instructions * Discharge Instructions* Candice Valentino MD - 09/15/2017 4:16 AM DIRECTOR OF PRIMARY Keep your appointment at [facility] on Wednesday09/17/2017 at 4:30 PM CTOR OF PRIMARY * Attachments The following attachments cannot be sent through Care Everywhere. * Benzodiazepine Withdrawal (Vietnamese) * Postnasal Drip (Certified Marine Mechanic) (Vietnamese) * Dental Caries (AfterCare(R) Instructions(ER/ED)) (Vietnamese) documented in this encounter Medications at [...] to 3 days. 9 tablet 09/15/2017 0 atenolol (TENORMIN) 100 mg tabletIndications: Essential hypertension Take 1 tablet (100 mg total) by mouth daily. 30 tablet 3 03/12/2017 2 bisacodyl EC (DULCOLAX EC) 5 mg EC tablet Take 4 tablets at 7pm day before procedure 4 tablet 06/30/2017 1 citalopram (CeleXA) 40 mg tabletIndications: Recurrent major depressive disorder, in partial remission (HCC) Take 40 mg by mouth daily. 02/25/2017 1 escitalopram (LEXAPRO) 20 mg tablet Take 1 tablet (20 mg total) by mouth daily. 3 tablet 09/15/2017 1 fluticasone (FLONASE) 50 mcg/actuation nasal sprayIndications:N on-seasonal allergic rhinitis, unspecified allergic rhinitis trigger Administer 2 sprays into each nostril daily. 1 spray 3 03/12/2017 1 hyoscyamine (LEVSIN) 0.125 mg SL tabletIndications: Urinary Incontinence Take 1 tablet (0.125 mg total) by mouth every 8 (eight) hours as needed for cramping. 20 tablet 03/19/2017 1 omeprazole (PriLOSEC) 40 mg capsule Take [...] by mouth every 6 hours. 07/17/2016 1 raNITIdine (ZANTAC) 150 mg tablet Take [...] Refills Last Filled Start Date End Date escitalopram (LEXAPRO) 20 mg tablet Take 1 tablet (20 mg total) by mouth daily. 3 tablet 09/15/2017 1 ALPRAZolam (XANAX) 2 mg tabletIndications: Anxiety with Depression Take 1 tablet (2 mg total) by mouth nightly as needed for anxiety for up to 3 days. 9 tablet 09/15/2017 0 documented in this encounter Discharge Disposition Disposition Code Departure Means Destination Discharge to home or self care documented in this encounter ED Notes * Candice Valentino MD - 09/15/2017 4:20 AM CST HPI Chief Complaint Patient presents with ??? Med Refill ??? Nausea HPI This is a 47 year old white male with depression and anxiety. Recently changed psychiatrists. Previously on Lexapro 20 mg daily and Xanax 2 mg TID. Initially stretched medicine out , completely out for 2 days. Increasingly anxious, Anxious, restless, nervous, shaky and nausueated. Also has a bed tooth and the dental clinic is off until 10/04 and complains of post nasal drip. No HI or SI. Wants refills. Has an appointment at [facility] on Wednesday at 4:30 Patient History Past Medical History: Diagnosis Date ??? Anxiety ??? Arthritis ??? Asthma ??? Depression ??? Diabetes mellitus (CMS/HCC) ??? Diverticulosis ??? Hypertension ??? PTSD (post-traumatic stress disorder) Past Surgical History: Procedure Laterality Date ??? CHOLECYSTECTOMY ??? CHOLECYSTECTOMY Family History Problem Relation Age of Onset ??? Hypertension Mother ??? Hyperlipidemia Mother ??? Mental illness Mother ??? Hypertension Father ??? Stroke Father ??? Hyperlipidemia Father Social History Substance Use Topics ??? Smoking status: Former Smoker ??? Smokeless tobacco: Never Used ??? Alcohol use No Review of Systems Review of Systems Constitutional: Negative for chills, diaphoresis, fatigue and fever. HENT: Positive for congestion, dental problem and postnasal drip. Negative for sneezing and sore throat. Eyes: Negative for pain, discharge and itching. Respiratory: Negative for apnea, cough, choking, chest tightness, shortness of breath, wheezing andstridor. Cardiovascular: Negative for chest pain, palpitations and leg swelling. Gastrointestinal: Positive for nausea. Negative for abdominal distention, abdominal pain, anal bleeding, blood in stool, constipation, diarrhea, rectal pain and vomiting. Endocrine: Negative for polydipsia, polyphagia and polyuria. Genitourinary: Negative for difficulty urinating, dysuria, flank pain, frequency and urgency. Musculoskeletal: Negative for arthralgias, back pain, gait problem, joint swelling, myalgias, neck pain and neck stiffness. Skin: Negative for color change, pallor, rash and wound. Neurological: Positive for headaches. Negative for dizziness, tremors, seizures, syncope, facial asymmetry, speech difficulty, weakness, light-headedness and numbness. Hematological: Negative for adenopathy. Does not bruise/bleed easily. Psychiatric/Behavioral: Positive for hallucinations. Negative for agitation, behavioral problems, confusion, dysphoric mood, self-injury, sleep disturbance and suicidal ideas. Physical Exam ED Triage Vitals Temp Pulse Resp BP SpO2 09/15/17 0000 09/15/17 0000 09/15/17 0000 09/15/17 0000 09/15/17 0000 36.7 ??C (98.1 ??F) 69 18 149/91 100 % Temp src Heart Rate Source Patient Position BP Location FiO2 (%) 09/15/17 0000 -- -- 09/15/17 0112 -- Temporal Left arm Physical Exam Constitutional: He is oriented to person, place, and time. He appears well- developed and well-nourished. No distress. HENT: Head: Normocephalic and atraumatic. Nose: Nose normal. Mouth/Throat: Oropharynx is clear and moist. Multiple missing teeth, one tooth elft right upper jaw extensively decayed, no swelling or abscess.Post nasal drainage Eyes: Conjunctivae and EOM are normal. Pupils are equal, round, and reactive to light. Neck: Normal range of motion. Neck supple. No JVD present. No tracheal deviation present. Cardiovascular: Normal rate, regular rhythm, normal heart sounds and intact distal pulses. Pulmonary/Chest: Effort normal and breath sounds normal. No stridor. No respiratory distress. He has no wheezes. Abdominal: Soft. Bowel sounds are normal. There is no tenderness. There is no guarding. Musculoskeletal: Normal range of motion. He exhibits no edema, tenderness or deformity. Neurological: He is alert and oriented to person, place, and time. Skin: Skin is warm and dry. Capillary refill takes less than 2 seconds. No rash noted. No erythema.No pallor. Psychiatric: He has a normal mood and affect. His behavior is normal. Judgment and thought content normal. ED Course & MDM ED Course MDM Benzodiazepine withdrawal without complication (CMS/[facility]) Post-nasal drainage Dental caries Candice Valentino MD 09/15/17 0426 Candice Valentino MD 09/15/17 0427 CTOR OF PRIMARY CTOR OF PRIMARY * Dana Riley RN - 09/15/2017 12:00 AM CST Pt states he is out of his medications, Lexapro and Alprazolam, he has an appointment on Wednesday with a clinic. Pt also with nausea for past week as well. States having nasal drainage and lower appetite. CTOR OF PRIMARY documented in this encounter Plan of Treatment Scheduled Procedures Name Priority Associated Diagnoses Date/Ti il COLONOSCOPY Open Access Diverticulitis documented as of this encounter Visit Diagnoses Diagnosis Benzodiazepine withdrawal without complication (HCC)- Primary Post-nasal drainage Other diseases of nasal cavity and sinuses Dental caries Unspecified dental caries documented in this encounter Administered Medications Inactive Administered Medications - up to 3 most recent administrations Medication Order MAR Action Action Date Dose Rate Site LORazepam (ATIVAN) tablet 1 mg 1 mg, oral, Once, On Wed09/15/17 at 0430, For 1 dose Given 09/15/2017 4:22 AM DIRECTOR OF PRIMARY 1 mg ondansetron ODT (ZOFRAN-ODT) disintegrating tablet 4 mg 4 mg, oral, Once, On Wed09/15/17 at 0145, For 1 dose, Indications: Nausea, VomitingIndications:Nausea,Vomiting Given 09/15/2017 1:53 AM DIRECTOR OF PRIMARY 4 mg documented in this encounter Discontinued Medications Medication Sig Discontinue Reason Start Date End Da te ALPRAZolam (XANAX) 2 mg tabletIndications:Anxiet y,Benzodiazepine dependence (HCC) Take 1 tablet (2 mg total) by mouth 2 (two) times a day as needed. 03/12/2017 09/15/2017 ALPRAZolam (XANAX) 1 mg tablet Take 1 mg by mouth 2 (two) times a day. 03/04/2017 09/15/2017 documented as of this encounter Active and Recently Administered Medications Times are shown in DIRECTOR OF PRIMARY. Scheduled Medication Order 09/13/2017 09/14/2017 09/15/2017 LORazepam (ATIVAN) tablet 1 mg (COMPLETED) 1 mg, oral, Once, On Wed09/15/17 at 0430, For 1 dose 0422 (Given - Provid er: Lottie Lombardi RN) ondansetron ODT (ZOFRAN-ODT) disintegrating tablet 4 mg (COMPLETED) 4 mg, oral, Once, On Wed09/15/17 at 0145, For 1 dose, Indications: Nausea, Vomiting 0153 (Given - Provid er: Lottie Lombardi RN) documented in this encounter Care Teams Level Vial Inspector Relationship Specialty Start Date End Date Raza Gabriel MD [address] [place] [address] PCP - General 07/02/17 09/14/17 No, Physician PCP - General 09/15/17 03/16/19 documented as of this encounter
--- OUTSIDE RECORDS SUMMARY | 2024-09-10 04:11 | XMS_ITS | Encounter Summary ---
Author Organization [facility] Healthcare Address [address] [place] [address] Care Team Providers Care Garnett Mechanic Name Role Phone No, Physician Primary Care Provider [phone] Reason for Visit * Reason Comments Medication Withdrawal Encounter Details Date Type Department Care Team ([facility] st Contact Info) Description 01/14/2019 4:59 PM CDT - 01/14/2019 6:07 PM CDT Emergency [facility] Emergency Department [address] [place] [address] Bertrand Thomas MD 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 Gender Identity Not on file Sexual Orientation Not on file documented as of this encounter Last Filed Vital Signs Vital Sign Reading Time Taken Comments Blood Pressure 152/93 01/14/2019 6:00 PM CDT Pulse 77 01/14/2019 6:00 PM CDT Temperature 36.8 ??C (98.2 ??F) 01/14/2019 4:57 PM CD T Respiratory Rate 22 01/14/2019 6:00 PM CDT Oxygen Saturation 96% 01/14/2019 6:00 PM CDT Inhaled Oxygen Concentration - - Weight 129.5 kg (285 lb 8 oz) 01/14/2019 4:57 PM CDT Height - - Body Mass Index 37.67 11/11/2018 6:41 PM HAMMER ADJUSTER documented in this encounter Discharge Instructions * Attachments The following attachments cannot be sent through Care Everywhere. * Benzodiazepine Withdrawal (Spanish) * Depression (AfterCare(R) Instructions(ER/ED)) (Spanish) * Generalized Anxiety Disorder (Instrument Adjuster) (Spanish) documented in this encounter Medications at Time [...] 01/14/2019 0 ALPRAZolam (XANAX) 2 mg tablet 2 [...] by mouth daily 30 tablet 01/14/2019 1 ALPRAZolam (XANAX) 2 mg tablet Take 1 tablet (2 mg total) by mouth 4 (four) times a day 20 tablet 01/14/2019 0 omeprazole (PriLOSEC) 20 mg capsule Take 2 capsules (40 mg total) by mouth daily 30 capsule 01/14/2019 1 documented in this encounter Discharge Disposition Disposition Code Departure Means Destination Discharge to home or self care documented in this encounter ED Notes * Bertrand Thomas MD - 01/14/2019 5:24 PM CDT HPI 48 y.o. male with a history of depression, anxiety, PTSD, and benzodiazepine dependence presents for medication withdrawal. Patient recently switched psychiatrists and had his medications changed from Lexapro and Xanax 4x daily to Celexa and Xanax 3x daily. He reports worsening depression and anxiety since switching, noting that he has been having anxiety attacks again. Patient complains of difficulty sleeping last night, diaphoresis, and shakiness after running out of his Xanax. He states he attempted to call his psychiatrist multiple times but that he never received a response. He also notes difficulty having his prescriptions filled as Rxs from his new psychiatrist are not accepted at many pharmacies. Patient admits to taking his former dose of Xanax for a week after his prescriptions were changed and notes that this is why he ran out early. Patient denies suicidal or homicidal ideation. Denies chest pain or SOB. Denies nausea or vomiting. Chief Complaint Patient presents with ??? Medication Withdrawal HPI Patient History Patient Active Problem List [...] use: No Social History Social History Narrative ??? Not on file Review of Systems Review of Systems All systems reviewed and ROS negative except as per HPI. Physical Exam Physical Exam VITAL SIGNS: Reviewed. CONSTITUTIONAL: Well-appearing; well-nourished; in no apparent distress HEAD: Normocephalic; atraumatic EYES: Patient has some mydrisis ENT: Mucus membranes moist. CARD: RRR RESP: Normal respiratory effort; ABD: Normal bowel sounds; soft and non-distended; non-tender. EXT: Moves all extremities SKIN: No rash over extremities NEURO: Alert, and oriented x 4. Cranial nerves II through XII grossly intact. PSYCH: Patient denies SI/HI, anxious, run on thoughts. MDM Vitals: 01/14/19 1800 BP: 152/93 Pulse: 77 Resp: 22 Temp: SpO2: 96% No orders to display Labs Reviewed - No data to display I have personally visualized and interpreted all labs and imaging performed while patient in ED. MDM 48-year-old male past medical history of major depressive disorder, benzodiazepine dependence, cfr-[id number] diabetes, hypertension, diverticulitis, posttraumatic stress disorder presents with I ran out of my xanax. Pt states his new psych MD perscribed lower dose of xanax, and he ignoredthat initially and was taking it QID instead of TID as perscribed, so he ran out early and needed arefill. He was also upset that he was changed to celexa from lexapro so didn't fill it. After d/w patient, I agreed to fill 5 days of it since he was showing mydrasis and his story checked out. Pt informed that needs to f/u with PMD for further treatment next time and plan ahead. Review of the PMD P shows that the patient had 90 Xanax dispensed on December 21, before that had 15dispensed in August, May and April all by various providers. Benzodiazepine withdrawal with complication (CMS/HCC) Recurrent major depressive disorder, remission status unspecified (CMS/HCC) Anxiety I, Faizan Aguirre, am scribing for, and in the presence of, Dr. Bertrand Thomas MD. I, Bertrand Thomas MD, have personally performed the services described in the documentation, reviewed the documentation, as recorded by the scribe in my presence, and it accurately and completely records my words and actions. This note was transcribed using speech recognition software. As a result, there may be grammar and spelling errors that are unintended. If there are any questions or major errors, please contact me. Bertrand Thomas MD 01/14/19 [id number] * Dory Malone, RN - 01/14/2019 4:54 PM CDT Says he has not taken his psych meds today due to being out of medications. Says he is sweating and shaking. Also says his Lexapro has been changed. Denies any suicidal thoughts or homicidal thoughts. documented in this encounter Plan of Treatment Scheduled Procedures Name Priority Associated Diagnoses Date/Ti wv COLONOSCOPY Open Access Diverticulitis documented as of this encounter Visit Diagnoses Diagnosis Benzodiazepine withdrawal with complication (HCC)- Primary Recurrent major depressive disorder, remission status unspecified (HCC) Anxiety Anxiety state, unspecified documented in this encounter Care Teams Garnett Mechanic Relationship Specialty Start Date End Date No, Physician PCP - General 09/15/17 03/16/19 documented as of this encounter
--- OUTSIDE RECORDS SUMMARY | 2024-09-10 04:11 | XMS_ITS | Encounter Summary ---
Author Organization [facility] Medical Group Address [address] [place] [address] Care Team Providers Care Risk Reduction Counselor Name Role Phone No, Physician Primary Care Provider [phone] Encounter Details Date Type Department Care Team (Late st Contact Info) Description 04/29/2018 Telephone [facility] [address] [facility] [address] [place] [phone] Moses Laird, DO [address] [place] [address] Social History Tobacco Use Types Packs/Day Years Used Date Smoking Tobacco: Former Smokeless Tobacco: Never Alcohol Use Standard Drinks/Week Comments No 0 (1 standard drink = 0.6 oz pur e alcohol) Sex and Gender Information Value Date Recorded Sex Assigned at Not on file 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
--- OUTSIDE RECORDS SUMMARY | 2024-09-10 04:11 | XMS_ITS | Encounter Summary ---
Author Organization [facility] Medical [facility] Address [address] [place] [address] Care Team Providers Care Retrimmer Name Role Phone No, Physician Primary Care Provider [phone] Encounter Details Date Type Department Care Team (Late st Contact Info) Description 04/29/2018 Orders Only [facility] [address] [facility] [address] [place] [phone] Minal Henderson MA Social History Tobacco Use Types Packs/Day Years Used Date Smoking Tobacco: Former Smokeless Tobacco: Never Alcohol Use Standard Drinks/Week Comments No 0 (1 standard drink = 0.6 oz pur e alcohol) Sex and Gender Information Value Date Recorded Sex Assigned at Not on file 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
--- OUTSIDE RECORDS SUMMARY | 2024-09-10 04:11 | XMS_ITS | Encounter Summary ---
Author Organization [facility] Address [address] [facility] [address] [place] [address] Care Team Providers Care General Practice Name Role Phone No, Physician Primary Care Provider [phone] Encounter Details Date Type Department Care Team (Late st Contact Info) Description 02/24/2018 Documentation [facility] [address] [facility] [address] [place] [address] [place] [id number] [place] [address] [address] [place] [address] Social History Tobacco Use Types Packs/Day Years Used Date Smoking Tobacco: Former Smokeless Tobacco: Never Alcohol Use Standard Drinks/Week Comments No 0 (1 standard drink = 0.6 oz pur e alcohol) Sex and Gender Information Value Date Recorded Sex Assigned at Not on file 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 He was requesting for Prilosec prescription. I advised him to get OTC prilosec pending his next appointment with me. He refused and became beligerent and eventually became rude and told me that I am fired. * Buffy Philip - 02/24/2018 7:33 PM CDT Patient called office again on 6/15/18 requesting medication for acid reflux, spoke with PSR Danika, advised patient he fired Dr. Dodd per physician note on 02/24/18 and no refills or medications would be sent. He again became belligerent and verbally abusive and the call was ended. documented in this encounter Plan of Treatment Scheduled Procedures Name Priority Associated Diagnoses Date/Ti ar COLONOSCOPY Open Access Diverticulitis documented as of this encounter Visit Diagnoses Not on filedocumented in this encounter Care Teams General Practice Relationship Specialty Start Date End Date No, Physician PCP - General 09/15/17 03/16/19 documented as of this encounter
--- OUTSIDE RECORDS SUMMARY | 2024-09-10 04:11 | XMS_ITS | Encounter Summary ---
Author Organization [facility] Address [address] [place] [address] Care Team Providers Care Boat Dock Operator Name Role Phone No, Physician Primary Care Provider [phone] Encounter Details Date Type Department Care Team (Late st Contact Info) Description 01/05/2018 Orders Only [id number] [id number] [place] [address] [address] [place] [address] [place] Dodd [place] [id number] [place] [address] [address] [place] [address] Social History Tobacco Use Types Packs/Day Years Used Date Smoking Tobacco: Former Smokeless Tobacco: Never Alcohol Use Standard Drinks/Week Comments No 0 (1 standard drink = 0.6 oz pur e alcohol) Sex and Gender Information Value Date Recorded Sex Assigned at Not on file 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 28 tablet 01/05/2018 01/19/2018 ciprofloxacin (CIPRO) 500 mg tablet Take 1 tablet (500 mg total) by mouth 2 (two) times a day for 14 days. 28 tablet 01/05/2018 01/19/2018 documented in this encounter Progress Notes * Val Dodd MD - 01/05/2018 7:52 PM CDT The patient called me through the exchange reporting that he has acute abdominal pain which he thinks is a flare up of his acute diverticulitis. I called in prescription for ciprofloxacin and metronidazole for 2 weeks. He was also advised to make an office visit appointment for follow-up evaluation. documented in this encounter Plan of Treatment Scheduled Procedures Name Priority Associated Diagnoses Date/Ti me COLONOSCOPY Open Access Diverticulitis documented as of this encounter Visit Diagnoses Not on filedocumented in this encounter Care Teams Boat Dock Operator Relationship Specialty Start Date End Date No, Physician PCP - General 09/15/17 03/16/19 documented as of this encounter
--- OUTSIDE RECORDS SUMMARY | 2024-09-10 04:11 | XMS_ITS | Encounter Summary ---
Author Organization [facility] Address [address] [place] [address] Care Team Providers Care Pulp Mixer Name Role Phone No, Physician Primary Care Provider [phone] Encounter Details Date Type Department Care Team (Latest Contact Info) Description 06/19/2018 12:56 AM CDT - 06/19/2018 3:10 PM CDT Hospital Encounter [facility] Timmy Caballero MD [address] [place], [place] [id number] Chest pain; Elevated blood pressure reading without diagnosis of hypertension; Abnormal levels of other serum enzymes; Gastro-esophageal reflux disease without esophagitis; Other specified anxiety disorders; Bipolar disorder (CMS/HCC); Type 2 diabetes mellitus without complications ([facility]); Morbid (severe) obesity due to excess calories ([facility]); Other halfway (current) drug therapy; Procedure and treatment not carried out due to patient leaving prior to being seen by health care provider Social History Tobacco Use Types Packs/Day Years Used Date Smoking Tobacco: Former Smokeless Tobacco: Never Alcohol Use Standard Drinks/Week Comments No 0 (1 standard drink = 0.6 oz pur e alcohol) Sex and Gender Information Value Date Recorded Sex Assigned at Not on file 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 Gender Identity Not on file Sexual Orientation Not on file documented as of this encounter Last Filed Vital Signs Vital Sign Reading Time Taken Comments Blood Pressure 136/81 06/19/2018 12:10 AM CDT Pulse 72 06/19/2018 12:10 AM CDT Temperature 37 ??C (98.6 ??F) 06/19/2018 12:10 AM CDT Respiratory Rate - - Oxygen Saturation 98% 06/19/2018 12:10 AM CDT Inhaled Oxygen Concentration - - Weight 128.1 kg (282 lb 8 oz) 06/19/2018 12:10 A M CDT Height 185.4 cm (6' 1 ) 06/19/2018 12:10 AM CDT Body Mass Index 37.27 06/19/2018 12:10 AM CDT documented in this encounter Medications [...] 09/15/2017 0 ALPRAZolam (XANAX) 2 mg tablet 2 [...] 1 Bottle 1 04/29/2018 1 omeprazole (PriLOSEC) 40 mg capsule Take [...] Procedure Name Priority Date/Time Associated Diagnosis Comments TROPONIN I Routine 06/19/2018 12:12 PM CDT TROPONIN I Routine 06/19/2018 6:12 AM CDT THYROID FUNCTION CASCADE Routine 06/19/2018 1:10 AM CDT CBC WITH AUTO DIFFERENTIAL Routine 06/19/2018 1:10 AM CDT TROPONIN I Routine 06/19/2018 1:10 AM CDT HEMOGLOBIN A1C Routine 06/19/2018 1:10 AM CDT LIPID PANEL Routine 06/19/2018 1:10 AM CDT COMPREHENSIVE METABOLIC PANEL Routine 06/19/2018 1:10 AM CDT CARDIOLOGY REPORT 06/19/2018 12: 00 AM CDT TRANSTHORACIC ECHO (TTE) COMPLETE W DOPPLER/CF Routine 06/19/2018 12:00 AM CDT documented in this encounter Results * Troponin I (06/19/2018 12:12 PM CDT) Troponin I < 0.300 0.000 - 0.300 ng/mL 06/19/2018 12:44 PM CDT [facility] HISTORICAL RESULTS Comment: Reference using MARCK Chemiluminescence ? Negative: Repeat in 4-6 hours as indicated. 06/19/2018 12:1 2 PM CDT 06/19/2018 12:20 PM CDT Timmy Caballero MD LAB BLOOD ORDERABLES F inal Result [facility] HISTORICAL RESULTS * Troponin I (06/19/2018 6:12 AM CDT) Troponin I < 0.300 0.000 - 0.300 ng/mL 06/19/2018 6:40 AM CDT [facility] HISTORICAL RESULTS Comment: Reference using MARCK Chemiluminescence ? Negative: Repeat in 4-6 hours as indicated. 06/19/2018 6:12 AM CDT 06/19/2018 6:19 AM CDT Timmy Caballero MD LAB BLOOD ORDERABLES F inal Result Performing Organization Address [facility] de Phone Number [facility] HISTORICAL RESULTS * TSH reflex to free T4 (06/19/2018 1:10 AM CDT) Pathologist [facility] TSH W REFLEX TO FT4 2.19 0.27 - 4.20 uIU/mL 06/19/2018 1:50 AM CDT [facility] HISTORICAL RESULTS 06/19/2018 1:10 AM CDT 06/19/2018 1:15 AM CDT Timmy Caballero MD LAB BLOOD ORDERABLES F inal Result Performing Organization Address [facility] Phone Number [facility] HISTORICAL RESULTS * (ABNORMAL) Hemoglobin A1c (06/19/2018 1:10 AM CDT) Hemoglobin A1c % 5.8(H) 4.0 - 5.6 % 06/19/2018 5:22 AM CDT [facility] HISTORICAL RESULTS Comment: ADA 2016 GUIDELINES: ??Initial Diagnostic Criteria ? HbA1c Result: ?Interpretation: ?<5.7% ? Normal ?5.7-6.4% ?At risk for diabetes mellitus ?>=6.5% ?Consistent with diabetes mellitus ??Diabetes monitoring ? Target value (ADA Recommended) ?? <7% 06/19/2018 1:10 AM CDT 06/19/2018 1:15 AM CDT us Timmy Caballero MD LAB BLOOD ORDERABLES F inal Result [facility] HISTORICAL RESULTS * (ABNORMAL) Lipid panel (06/19/2018 1:10 AM CDT) Triglycerides 170(H) 0 - 149 mg/dL 06/19/2018 1:50 AM T [facility] HISTORICAL RESULTS Comment: National Lipid Association/NCEP Guidelines: ?? Normal ?< 150 mg/dL ?? Borderline high ?? 150-199 mg/dL ?? High ?200-499 mg/dL ?? Very High ? >=500 mg/dL Cholesterol 185 0 - 199 mg/dL 06/19/2018 1:50 AM T [facility] HISTORICAL RESULTS Comment: National Lipid Association/NCEP Guidelines: Desirable ? < 200 mg/dL Borderline high: ??200-239 mg/dL High Risk: ?>=240 mg/dL HDL Cholesterol 25 mg/dL 1:50 AM T [facility] HISTORICAL RESULTS Comment: Reference Ranges: ? Males: >=40 mg/dL ? Females: >=50 mg/dL LDL Cholesterol, Calc 126 0 - 129 mg/dL 06/19/2018 1:50 AM T [facility] HISTORICAL RESULTS Comment: National Lipid Association/NCEP Guidelines: ??Optimal ? < 100 mg/dL ??Near Optimal ?100-129 mg/dL ??Borderline high 130-159 mg/dL ??High ?>=160 mg/dL Cholesterol/HDL Ratio 7.4 Comment: Optimal ??< 3.5:1 High ? > 5:1 06/19/2018 1:10 AM CDT 06/19/2018 1:15 AM CDT us Timmy Caballero MD LAB BLOOD ORDERABLES F inal Result [facility] HISTORICAL RESULTS * (ABNORMAL) Comprehensive metabolic panel (06/19/2018 1:10 AM CDT) Sodium 144 135 - 145 mmol/L 06/19/2018 1:50 AM T [facility] HISTORICAL RESULTS Potassium 3.7 3.3 - 5.1 mmol/L 06/19/2018 1:50 AM T [facility] HISTORICAL RESULTS Chloride 105 96 - 108 mmol/L 06/19/2018 1:50 AM T [facility] HISTORICAL RESULTS Carbon Dioxide 28 22 - 32 mmol/L 06/19/2018 1:50 AM T [facility] HISTORICAL RESULTS Anion Gap 11 7 - 16 06/19/2018 1:50 AM T [facility] HISTORICAL RESULTS Glucose 89 70 - 100 mg/dL 06/19/2018 1:50 AM T [facility] HISTORICAL RESULTS BUN 10 6 - 20 mg/dL 06/19/2018 1:50 AM T [facility] HISTORICAL RESULTS Creatinine 0.8 0.5 - 1.3 mg/dL Comment: NOTE: Estimated GFR (Cockroft-Gault) will NOT be calculated unless patient Height and Weight were entered. Also, Kidney Disease Stage (GFR) and Estimated GFR (Cockroft-Gault) will NOT be calculated if Creatinine result is <0.2. Kidney Disease Stage > 90 mL/MIN Comment: NOTE; ??The GFR is an estimated [...] mL/min ? Kidney failure or on dialysis @ Est GFR (Cockcroft-G) 162 ml/MIN 06/19/2018 1:50 AM [facility] Comment: Estimated GFR(Cockroft-Gault)is used to calculate patient medication dosage Calcium 9.4 8.6 - 10.0 mg/dL 06/19/2018 1:50 AM [facility] Total Protein 8.1 6.4 - 8.3 g/dL 06/19/2018 1:50 AM [facility] Albumin 4.5 3.5 - 5.2 g/dL Globulin 3.6(H) 2.3 - 3.5 gm/dL 06/19/2018 1:50 AM [facility] Albumin/Globulin Ratio 1.3 1.1 - 1.8 Total Bilirubin 1.3(H) 0.0 - 1.2 mg/dL 06/19/2018 1:50 AM [facility] AST 26 0 - 40 U/L 06/19/2018 1:50 AM [facility] ALT 29 0 - 41 U/L 06/19/2018 1:50 AM [facility] Alkaline Phosphatase 69 40 - 129 U/L 06/19/2018 1:50 AM [facility] 06/19/2018 1:10 AM CDT 06/19/2018 1:15 AM CDT Timmy Caballero MD LAB BLOOD ORDERABLES F inal Result [facility] HISTORICAL RESULTS * (ABNORMAL) CBC with auto differential (06/19/2018 1:10 AM CDT) WBC 8.0 3.8 - 9.9 X10 3/ul 06/19/2018 1:17 AM CDT [facility] [employer] HISTORICAL RESULTS RBC 6.15(H) 4.30 - 5.80 x10 6/ul 06/19/2018 1:17 AM CDT [facility] Hemoglobin 13.6 13.0 - 17.5 g/dL 06/19/2018 1:17 AM CDT [facility] RES[facility] Hct 44.2 38.9 - 50.3 % 06/19/2018 1:17 AM CDT [facility] H[facility]OR[facility] RESULTS MCV 71.9(L) 81.3 - 96.4 fl 06/19/2018 1:17 AM CDT [facility] HISTOR[facility] RESULTS MCH 22.1(L) 27.1 - 33.3 pg 06/19/2018 1:17 AM CDT [facility] HISTOR[facility] RESULTS MCHC 30.8(L) 32.3 - 35.7 g/dl 06/19/2018 1:17 AM CDT [facility] HISTORICAL RESULTS RDW 17.9(H) 11.1 - 14.9 % 06/19/2018 1:17 AM CDT [facility] [employer] HISTORICAL RESULTS Plt Count 174 150 - 400 x10 3/ul 06/19/2018 1:17 AM CDT [facility] HISTOR[facility] RES[facility] MPV 8.9(L) 9.1 - 12.3 fl 06/19/2018 1:17 AM CDT [facility] [employer] [facility] Neut % 66.0 % 06/19/2018 1:17 AM CDT [facility] HISTOR[facility] RES[facility] Immature Gran % 0.3 % 8 1:17 AM CDT [facility] HISTORICAL RESULTS Lymph % 26.0 % 06/19/2018 1:17 AM CDT [facility] HISTORICAL RESULTS [place] % 5.8 % 06/19/2018 1:17 AM CDT [facility] HISTORICAL RESULTS Eos % 1.4 % 06/19/2018 1:17 AM CDT [facility] HISTORICAL RESULTS Baso % 0.5 % 06/19/2018 1:17 AM T [facility] HISTORICAL RESULTS Absolute Neuts (auto) 5.3 1.7 - 6.5 x10 3/ul 06/19/2018 1:17 AM T [facility] HISTORICAL RESULTS Immature Gran # 0.0 0.0 - 0.1 x10 3/ul 06/19/2018 1:17 AM T [facility] HISTORICAL RESULTS Absolute Lymphs (auto) 2.1 0.8 - 3.3 x10 3/ul 06/19/2018 1:17 AM T [facility] HISTORICAL RESULTS Absolute Monos (auto) 0.5 0.2 - 0.8 x10 3/ul 06/19/2018 1:17 AM T [facility] HISTORICAL RESULTS Absolute Eos (auto) 0.1 0.0 - 0.5 x10 3/ul 06/19/2018 1:17 AM T [facility] HISTORICAL RESULTS Absolute Basos (auto) 0.0 0.0 - 0.1 x10 3/ul 06/19/2018 1:17 AM T [facility] HISTORICAL RESULTS Nucleat RBC Rel Count 0.0 #/100WBC Absolute Nucleated RBC 0.00 0.00 - 0.01 x10 3/ul 06/19/2018 1:17 AM T [facility] HISTORICAL RESULTS Absolute Neutrophils 5300 200 - 8000 /ul 06/19/2018 1:17 AM T [facility] HISTORICAL RESULTS 06/19/2018 1:10 AM CDT 06/19/2018 1:15 AM CDT us Timmy Caballero MD LAB BLOOD ORDERABLES F inal Result [facility] HISTORICAL RESULTS * Troponin I (06/19/2018 1:10 AM CDT) Troponin I < 0.300 0.000 - 0.300 ng/mL 06/19/2018 1:39 AM T [facility] HISTORICAL RESULTS Comment: Reference using MARCK Chemiluminescence ? Negative: Repeat in 4-6 hours as indicated. 06/19/2018 1:10 AM CDT 06/19/2018 1:15 AM CDT us Timmy Caballero MD LAB BLOOD ORDERABLES F inal Result [facility] HISTORICAL RESULTS * CARDIOLOGY REPORT (06/19/2018 12:00 AM CDT) Anatomical Region Laterality Modality Other Narrative 06/19/2018 12:00 AM CDT Ordered by an unspecified provider. Historical Provider [facility] LIZZIE LLOYD Final Result * Transthoracic Echo Complete W Doppler/CF (06/19/2018 12:00 AM CDT) Anatomical Region Laterality Modality Ultrasound 06/19/2018 Narrative 06/19/2018 5:06 PM CDT Results viewable in EMR, Cardiovascular [EOD] Procedure Note Provider, Rachael, - 01/27/2021 Results viewable in EMR, Cardiovascular [EOD] Fadi Meehan MD CV ECHO PROCEDURES Laura l Result documented in this encounter Visit Diagnoses Diagnosis Chest pain Unspecified chest pain Elevated blood pressure reading without diagnosis of hypertension Abnormal levels of other serum enzymes Gastro-esophageal reflux disease without esophagitis Other specified anxiety disorders Bipolar disorder (HCC) Bipolar disorder, unspecified Type 2 diabetes mellitus without complications ([facility]/HCC) (HCC) Morbid (severe) obesity due to excess calories (HCC) Other halfway (current) drug therapy Procedure and treatment not carried out due to patient leaving prior to being seen by health care provider documented in this encounter Care Teams Pulp Mixer Relationship Specialty Start Date End Date No, Physician PCP - General 09/15/17 03/16/19 documented as of this encounter
--- OUTSIDE RECORDS SUMMARY | 2024-09-10 04:11 | XMS_ITS | Encounter Summary ---
Author Organization [facility] Facility Care Team Providers Care Manager Cafe Name Role Phone No, Physician Primary Care Provider [phone] Cata Clifton NP Primary Care Provider [phone] No, Physician Primary Care Provider [phone] Miscellaneous, Not In File Primary Care Provider Unavailable Jagdeep Sanford DO Primary Care Provider [phone] Miscellaneous, Not In File Unavailable Unava Charanjit Wilburn MD Primary Care Provider [phone] Carlos Gamboa MD Primary Care Provid er Unknown, Notinfile Primary Care Provider Unavail able No, Physician Primary Care Provider [phone] Unknown, Notinfile Primary Care Provider Unavail able No, Physician Primary Care Provider [phone] Unknown, Notinfile Primary Care Provider Unavail able Adin Lino MD Primary Care Provider + Unknown, Notinfile Primary Care Provider Unavail able Encounter Details Date Type Department Care Team (Latest Contact Info) Description 06/23/2018 Orders Only [facility] ProviderRachael MD [address] [place] [address] Social History Tobacco Use Types Packs/Day Years Used Date Smoking Tobacco: Former Smokeless Tobacco: Never Alcohol Use Standard Drinks/Week Comments No 0 (1 standard drink = 0.6 oz pur e alcohol) Sex and Gender Information Value Date Recorded Sex Assigned at Not on file 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 Gender Identity Not on file Sexual Orientation Not on file documented as of this encounter Plan of Treatment Scheduled Procedures Name Priority Associated Diagnoses Date/Ti me COLONOSCOPY Open Access Diverticulitis documented as of this encounter Procedures Procedure Name Priority Date/Time Associated Diagnosis Comments CARDIOLOGY REPORT 06/23/2018 12: 00 AM CDT CARDIOLOGY REPORT 06/23/2018 12: 00 AM CDT documented in this encounter Results * CARDIOLOGY REPORT (06/23/2018 12:00 AM CDT) Anatomical Region Laterality Modality Other Narrative 06/23/2018 12:00 AM CDT Ordered by an unspecified provider. us Historical Provider MD [facility] PROCE DURES Final Result * CARDIOLOGY REPORT (06/23/2018 12:00 AM CDT) Anatomical Region Laterality Modality Other Narrative 06/23/2018 12:00 AM CDT Ordered by an unspecified provider. Historical Provider [facility] PROCE DURES Final Result documented in this encounter Visit Diagnoses Not on filedocumented in this encounter Additional Health Concerns Infection Onset Date Last Indicated Resolved Time COVID: Suspected 10/11/2023 10/11/2023 10/11/2023 5:30 PM PAVING CONTRACTOR documented as of this encounter Care Teams Manager Cafe Relationship Specialty Start Date End Date No, Physician PCP - General 09/15/17 03/16/19 Cata Clifton NP PCP - General 03/17/19 11/04/19 No, Physician PCP - General 11/05/19 11/11/19 Miscellaneous, Not In File PCP - General 11/12/19 0 Jagdeep Sanford DO [address] [id number] PCP - General Family Medicine 11/16/19 01/20/20 Charanjit Sheffield MD [address] [id number] PCP - General 01/21/20 09/29/20 Carlos Gamboa MD [address] [place] [address] PCP - General Family Medicine 09/30/20 05/07/21 Unknown, Notinfile PCP - General 05/08/21 11/26/21 No, Physician PCP - General 11/27/21 01/13/23 Unknown, Notinfile PCP - General 01/14/23 01/17/24 No, Physician PCP - General 01/18/24 04/21/24 Unknown, Notinfile PCP - General 04/22/24 07/30/24 Adin Lino MD [address] [place] [id number] PCP - General Internal Medicine 07/31/24 07/31/24 Unknown, Notinfile PCP - General 08/01/24 Miscellaneous, Not In File 11/16/19 documented as of this encounter
--- OUTSIDE RECORDS SUMMARY | 2024-09-10 04:11 | XMS_ITS | Encounter Summary ---
Author Organization [facility] Healthcare Address [address] [place] [address] Care Team Providers Care Commutator Tester Name Role Phone No, Physician Primary Care Provider [phone] Encounter Details Date Type Department Care Team (Latest Contact Info) Description 03/01/2018 1:07 PM CDT Hospital Encounter [facility] Bk Miller MD [address] [facility] [address] [address] Encounter for general adult medical examination without abnormal findings; Other fatigue Social History Tobacco Use Types Packs/Day Years Used Date Smoking Tobacco: Former Smokeless Tobacco: Never Alcohol Use Standard Drinks/Week Comments No 0 (1 standard drink = 0.6 oz pur e alcohol) Sex and Gender Information Value Date Recorded Sex Assigned at Not on file 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 Gender Identity Not on file Sexual [...] Procedure Name Priority Date/Time Associated Diagnosis Comments TESTOSTERONE, SILVANA&TOT, MALE>=14Y Routine 03/01/2018 1:16 PM CDT THYROID FUNCTION CASCADE Routine 03/01/2018 1:16 PM CDT CBC WITH AUTO DIFFERENTIAL Routine 03/01/2018 1:16 PM CDT VITAMIN D 25 HYDROXY Routine 03/01/2018 1:16 PM CDT HEMOGLOBIN A1C Routine 03/01/2018 1:16 PM CDT LIPID PANEL Routine 03/01/2018 1:16 PM CDT COMPREHENSIVE METABOLIC PANEL Routine 03/01/2018 1:16 PM CDT documented in this encounter Results * (ABNORMAL) CBC with auto differential (03/01/2018 1:16 PM CDT) WBC 6.5 3.5 - 10.5 x10 3/ul 03/01/2018 3:05 PM CDT [facility] [employer] HISTORICAL RESULTS RBC 6.09(H) 4.11 - 5.71 x10 6/ul 03/01/2018 3:05 PM CDT [facility] [employer] HISTORICAL RESULTS Hemoglobin 12.9(L) 13.0 - 17.0 g/dL 03/01/2018 3:05 PM CDT [facility] [employer] HISTORICAL RESULTS Hct 43.1 38.2 - 48.5 % 03/01/2018 3:05 PM CDT [facility] HISTORICAL RESULTS MCV 70.8(L) 80.0 - 97.0 fl 03/01/2018 3:05 PM CDT [facility] HISTORICAL RESULTS MCH 21.2(L) 27.0 - 31.2 pg 03/01/2018 3:05 PM CDT [facility] [employer] HISTORICAL RESULTS MCHC 29.9(L) 31.8 - 35.4 g/dl 03/01/2018 3:05 PM CDT [facility] HISTORICAL RESULTS RDW 18.9(H) 11.6 - 14.8 % Plt Count 213 150 - 450 X10 3/ul MPV 9.5 7.4 - 10.4 fl Neut % 54.8 37.0 - 85.0 % Immature Gran % 0.3 0.0 - 3.0 % Lymph % 35.8 5.0 - 45.0 % [place] % 6.0 3.0 - 15.0 % Eos % 2.5 0.0 - 7.0 % Baso % 0.6 0.0 - 2.0 % Absolute Neuts (auto) 3.6 1.7 - 8.7 x10 3/ul Immature Gran # 0.0 0.0 - 0.3 x10 3/ul Absolute Lymphs (auto) 2.3 0.2 - 4.6 x10 3/ul Absolute Monos (auto) 0.4 0.1 - 1.5 x10 3/ul Absolute Eos (auto) 0.2 0.0 - 0.7 x10 3/ul Absolute Basos (auto) 0.0 0.0 - 0.2 x10 3/ul Nucleat RBC Rel Count 0.0 0 - 3 #/100WBC Absolute Nucleated RBC 0.00 x10 3/ul Absolute Neutrophils 3600 200 - 8000 /ul 03/01/2018 1:16 PM CDT 03/01/2018 1:34 PM CDT Bk Andrew MD LAB BLOOD ORDERABLES Final Resul t Performing Organization Address [facility] Co de Phone Number [facility] HISTORICAL RESULTS * TSH reflex to free T4 (03/01/2018 1:16 PM CDT) TSH W REFLEX TO FT4 2.18 0.27 - 4.20 uIU/mL 03/01/2018 1:16 PM CDT 03/01/2018 1:34 PM CDT Bk Andrew MD LAB BLOOD ORDERABLES Final Resul t Performing Organization Address [facility] de Phone Number [facility] HISTORICAL RESULTS * (ABNORMAL) Testosterone, silvana&tot, male>=14y (03/01/2018 1:16 PM CDT) Testosterone Level 245(L) 249 - 836 ng/dL Sex Hormone Bind Glob 36 16 - 56 nmol/L Free Testosterone Indx 23.6(L) 35.0 - 92.6 % 03/01/2018 1:16 PM CDT 03/01/2018 1:34 PM CDT Bk Andrew MD LAB BLOOD ORDERABLES Final Resul t Performing Organization Address [facility] de Phone Number [facility] HISTORICAL RESULTS * (ABNORMAL) Vitamin D 25 hydroxy (03/01/2018 1:16 PM CDT) Pathologist [facility] 25-OH Vitamin D Total < 5(L) 30 - 80 ng/mL 03/01/2018 1:16 PM CDT 03/01/2018 1:34 PM CDT Result [facility] Bk Andrew MD LAB BLOOD ORDERABLES Final Resul t Performing Organization Address [facility] de Phone Number [facility] HISTORICAL RESULTS * (ABNORMAL) Hemoglobin A1c (03/01/2018 1:16 PM CDT) [facility] Hemoglobin A1c % 6.1(H) 4.0 - 5.6 % Comment: ADA 2016 GUIDELINES: ??Initial Diagnostic Criteria ? HbA1c Result: ?Interpretation: ?<5.7% ? Normal ?5.7-6.4% ?At risk for diabetes mellitus ?>=6.5% ?Consistent with diabetes mellitus ??Diabetes monitoring ? Target value (ADA Recommended) ?? <7% 03/01/2018 1:1 6 PM CDT 03/01/2018 1:34 PM CDT Result [facility] Bk Andrew MD LAB BLOOD ORDERABLES Final Resul t Performing Organization Address [facility] de Phone Number [facility] HISTORICAL RESULTS * (ABNORMAL) Lipid panel (03/01/2018 1:16 PM CDT) [facility] Triglycerides 235(H) 0 - 149 mg/dL Comment: National Lipid Association/NCEP Guidelines: ?? Normal ?< 150 mg/dL ?? Borderline high ?? 150-199 mg/dL ?? High ?200-499 mg/dL ?? Very High ? >=500 mg/dL Cholesterol 158 0 - 199 mg/dL Comment: National Lipid Association/NCEP Guidelines: Desirable ? < 200 mg/dL Borderline high: ??200-239 mg/dL High Risk: ?>=240 mg/dL HDL Cholesterol 20 mg/dL 8 3:23 PM T [facility] HISTORICAL RESULTS Comment: Reference Ranges: ? Males: >=40 mg/dL ? Females: >=50 mg/dL LDL Cholesterol, Calc 91 0 - 129 mg/dL Comment: National Lipid Association/NCEP Guidelines: ??Optimal ? < 100 mg/dL ??Near Optimal ?100-129 mg/dL ??Borderline high 130-159 mg/dL ??High ?>=160 mg/dL Cholesterol/HDL Ratio 7.9 Comment: Optimal ??< 3.5:1 High ? > 5:1 03/01/2018 1:16 PM CDT 03/01/2018 1:34 PM CDT us Bk Andrew MD LAB BLOOD ORDERABLES Final Resul t [facility] HISTORICAL RESULTS * (ABNORMAL) Comprehensive metabolic panel (03/01/2018 1:16 PM CDT) Sodium 143 135 - 145 mmol/L Potassium 3.8 3.3 - 5.1 mmol/L Chloride 106 96 - 108 mmol/L Carbon Dioxide 27 22 - 32 mmol/L Anion Gap 10 7 - 16 Glucose 88 70 - 100 mg/dL BUN 9 6 - 20 mg/dL Creatinine 0.9 0.5 - 1.3 mg/dL Comment: NOTE: Estimated [...] ? Kidney failure or on dialysis @ Calcium 9.4 8.6 - 10.0 mg/dL Total Protein 8.2 6.4 - 8.3 g/dL Albumin 4.5 3.5 - 5.2 g/dL Globulin 3.7(H) 2.3 - 3.5 gm/dL Albumin/Globulin Ratio 1.2 1.1 - 1.8 Total Bilirubin 1.2 0.0 - 1.2 mg/dL AST 36 0 - 40 U/L ALT 47(H) 0 - 41 U/L Alkaline Phosphatase 59 40 - 129 U/L 03/01/2018 1:16 PM CDT 03/01/2018 1:34 PM CDT us Bk Andrew MD LAB BLOOD ORDERABLES Final Resul t [facility] HISTORICAL RESULTS documented in this encounter Visit Diagnoses Diagnosis Encounter for general adult medical examination without abnormal findings Other fatigue documented in this encounter Care Teams Commutator Tester Relationship Specialty Start Date End Date No, Physician PCP - General 09/15/17 03/16/19 documented as of this encounter
--- OUTSIDE RECORDS SUMMARY | 2024-09-10 04:11 | XMS_ITS | Encounter Summary ---
Author Organization [facility] Healthcare Address [address] [place] [address] Care Team Providers Care Global Project Manager Name Role Phone No, Physician Primary Care Provider [phone] Encounter Details Date Type Department Care Team (Late st Contact Info) Description 07/05/2018 4:05 PM CDT Hospital Encounter [facility] Jesus Pierce MD [address] [facility] [address] [address] Palpitations Social History Tobacco Use Types Packs/Day Years Used Date Smoking Tobacco: Former Smokeless Tobacco: Never Alcohol Use Standard Drinks/Week Comments No 0 (1 standard drink = 0.6 oz pur e alcohol) Sex and Gender Information Value Date Recorded Sex Assigned at Not on file 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 us Historical Provider MD [facility] LIZZIE LLOYD Final Result * 24 HR Holter Monitor (07/05/2018 4:00 PM CDT) Anatomical Region Laterality Modality Other 07/05/2018 4:00 PM CDT Narrative 07/12/2018 3:38 PM CDT DATE OF SERVICE: 07/08/2018 DESCRIPTION: ??Holter monitor shows sinus rhythm, minimal heart rate of 50, maximum of 96 per minute. ??Total of only 6 VPCs noted including 1 pair, but no ventricular tachycardia. ??A total of 69 APCs were seen including 6 pairs and one 4 beat run at the rate of 114 per minute. ??No arrhythmia was noted. ??The patient complained of numerous symptoms which has no correlation with rare atrial premature contractions and ventricular premature contractions. CONCLUSION: 1. ??Rare contractions and ventricular premature contractions without any sustained tachyarrhythmia. 2. ??Patient having numerous symptoms which is no correlation with rare atrial premature contractions and ventricular premature contractions. NTS Job: [id number] Dictated By: Vinicius Casillas MD Dictated For: Vinicius Casillas MD [EOD] Procedure Note Provider, MD Rachael - 01/27/2021 DATE OF SERVICE: 07/08/2018 DESCRIPTION: Holter monitor shows sinus rhythm, minimal heart rate of 50,maximum of 96 per minute. Total of only 6 VPCs noted including 1 pair,but no ventricular tachycardia. A total of 69 APCs were seen including 6pairs and one 4 beat run at the rate of 114 per minute. No arrhythmia wasnoted. The patient complained of numerous symptoms which has nocorrelation with rare atrial premature contractions and ventricularpremature contractions. CONCLUSION: 1. Rare contractions and ventricular premature contractions without anysustained tachyarrhythmia. 2. Patient having numerous symptoms which is no correlation with rareatrial premature contractions and ventricular premature contractions. NTS Job: [id number] Dictated By: Vinicius Casillas MD Dictated For: Vinicius Casillas MD [EOD] Jesus Casillas MD [facility] Final Result documented in this encounter Visit Diagnoses Diagnosis Palpitations documented in this encounter Care Teams Global Project Manager Relationship Specialty Start Date End Date No, Physician PCP - General 09/15/17 03/16/19 documented as of this encounter
--- OUTSIDE RECORDS SUMMARY | 2024-09-10 04:11 | XMS_ITS | Encounter Summary ---
Author Organization [facility] Address [address] [place] [address] Care Team Providers Care Decorator Hand Name Role Phone No, Physician Primary Care Provider [phone] Reason for Visit * Reason Comments Post nasal drip Nasal Congestion Migraine Encounter Details Date Type Department Care Team (Late st Contact Info) Description 04/29/2018 10:20 AM CDT Office Visit [facility] [address] [place] [address] [address] [place] [address] Moses Laird, DO [address] [place] [address] Non-seasonal allergic rhinitis, unspecified trigger (Primary Dx); Other acute recurrent sinusitis Social History Tobacco Use Types Packs/Day Years Used Date Smoking Tobacco: Former Smokeless Tobacco: Never Alcohol Use Standard Drinks/Week Comments No 0 (1 standard drink = 0.6 oz pur e alcohol) Sex and Gender Information Value Date Recorded Sex Assigned at Not on file 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 Gender Identity Not on file Sexual Orientation Not on file documented as of this encounter Last Filed Vital Signs Vital Sign Reading Time Taken Comments Blood Pressure 139/89 04/29/2018 11:00 AM CDT Pulse 65 04/29/2018 11:00 AM CDT Temperature - - Respiratory Rate 18 04/29/2018 11:00 AM CDT Oxygen Saturation - - Inhaled Oxygen Concentration - - Weight 131.1 kg (289 lb) 04/29/2018 11:00 AM CDT Height 188 cm (6' 2 ) 04/29/2018 11:00 AM CDT Body Mass Index 37.11 04/29/2018 11:00 AM CDT documented in this encounter Ordered Prescriptions Prescription Sig Dispense Quantity Refills Last Filled Start Date End Date azelastine (ASTELIN) 137 mcg (0.1 %) nasal spray Administer 1 spray into each nostril 2 (two) times a day. Use in each nostril as directed 30 mL 2 04/29/2018 1 pseudoephedrine-gu aifenesin 120-1,200 mg tablet extended release 12 hr Take 1 tablet by mouth 2 (two) times a day. 20 each 04/29/2018 1 olopatadine 0.6 % spray,non-aerosol Administer 2 sprays into affected nostril(s) 2 (two) times a day. 1 Bottle 1 04/29/2018 1 methylPREDNISolone (MEDROL DOSEPACK) 4 mg Dosepack Take as directed on package 1 packet 04/29/2018 8 documented in this encounter Progress Notes * Moses Laird, - 04/29/2018 10:20 AM CDT [facility] DATE OF VISIT: 05/10/2018 CHIEF COMPLAINT Chief Complaint Patient presents with ??? Post nasal drip ??? Nasal Congestion ??? Migraine HPI Carlos Mcgee is a 48 y.o. male with recurrent sinonasal symptoms. Patient states thatrecently over the past 7 weeks he has been experiencing nasal congestion with headache and left-sided earache. He was seen at an urgent care and placed on otic suspension and Augmentin. Patient was also given a dose of prednisone. Patient states that he experiences frequent sinonasal problems throughout the year. He does not associated with seasonal variations. Patient has never been allergy tested. Patient denies any diagnostic imaging of the paranasal sinuses. He had previously been cared forby a no other ENT in the community. Patient also experiences some rhinorrhea, sneezing episodes with some postnasal drainage. MEDICAL HISTORY Past Medical History: Diagnosis Date ??? Anxiety ??? Arthritis ??? Asthma ??? Depression ??? Diabetes mellitus (CMS/HCC) ??? Diverticulosis ??? Hypertension ??? PTSD (post-traumatic stress disorder) Social History Substance Use Topics ??? Smoking status: Former Smoker ??? Smokeless tobacco: Never Used ??? Alcohol use No Family History Problem Relation Age of Onset ??? Hypertension Mother ??? Hyperlipidemia Mother ??? Mental illness Mother ??? Hypertension Father ??? Stroke Father ??? Hyperlipidemia Father MEDICATIONS HOME MEDICATIONS : albuterol HFA (PROVENTIL HFA,VENTOLIN HFA) 90 mcg/actuation inhaler amoxicillin (AMOXIL) 875 mg tablet atenolol (TENORMIN) 100 mg tablet escitalopram (LEXAPRO) 20 mg tablet fluticasone (FLONASE) 50 mcg/actuation nasal spray hyoscyamine (LEVSIN) 0.125 mg SL tablet ibuprofen (ADVIL,MOTRIN) 600 mg tablet meclizine (ANTIVERT) 25 mg tablet omeprazole (PriLOSEC) 40 mg capsule promethazine (PHENERGAN) 25 mg tablet ALPRAZolam (XANAX) 2 mg tablet azelastine (ASTELIN) 137 mcg (0.1 %) nasal spray bisacodyl EC (DULCOLAX EC) 5 mg EC tablet citalopram (CeleXA) 40 mg tablet diazePAM (VALIUM) 5 mg tablet olopatadine 0.6 % spray,non-aerosol polyethylene glycol (GoLYTELY) 236-22.74-6.74 -5.86 gram solution pseudoephedrine-guaifenesin 120-1,200 mg tablet extended release 12 hr raNITIdine (ZANTAC) 150 mg tablet sodium, potassium & mag sulfates (SUPREP BOWEL KIT) 17.5-3.13-1.6 gram recon soln ALLERGIES Allergies Allergen Reactions ??? Clindamycin Anaphylaxis ??? [...] [Paroxetine] Anxiety ??? Toradol [Ketorolac] Nausea only REVIEW OF SYSTEMS Review of Systems Constitutional: Negative for appetite change, chills, diaphoresis, fatigue, fever and unexpected weight change. HENT: Positive for congestion, postnasal drip, rhinorrhea and sinus pressure. Negative for dental problem, drooling, ear discharge, ear pain, facial swelling, hearing loss, mouth sores, nosebleeds, sneezing, sore throat, tinnitus, trouble swallowing and voice change. Eyes: Negative for itching and visual disturbance. Respiratory: Negative for apnea, cough, choking, shortness of breath, wheezing and stridor. Cardiovascular: Negative for chest pain. Gastrointestinal: Negative for diarrhea, nausea and vomiting. Endocrine: Negative for cold intolerance, heat intolerance, polydipsia, polyphagia and polyuria. Genitourinary: Negative for dysuria, hematuria and urgency. Musculoskeletal: Negative for arthralgias, gait problem, joint swelling, myalgias, neck pain and neck stiffness. Skin: Negative for color change, pallor, rash and wound. Allergic/Immunologic: Negative for environmental allergies, food allergies and immunocompromised state. Neurological: Positive for headaches. Negative for dizziness, tremors, seizures, syncope, facial asymmetry, speech difficulty, weakness, light-headedness and numbness. Hematological: Negative for adenopathy. Does not bruise/bleed easily. Psychiatric/Behavioral: Negative for agitation, behavioral problems, confusion, sleep disturbance and suicidal ideas. PHYSICAL EXAM Vitals BP 139/89 (BP Location: Other (Comment), Patient Position: Sitting) Pulse 65 Resp 18 Ht 188 cm (6' 2 ) Wt 131.1 kg (289 lb) BMI 37.11 kg/m?? Physical Exam Constitutional: He is oriented to person, place, and time. Vital signs are normal. He appears well-developed and well-nourished. He is cooperative. Non- toxic appearance. He does not appear ill. HENT: Head: Normocephalic and atraumatic. Right Ear: Hearing, tympanic membrane, external ear and ear canal normal. No middle ear effusion. No decreased hearing is noted. Left Ear: Hearing, tympanic membrane, external ear and ear canal normal. No middle ear effusion. Nodecreased hearing is noted. Nose: Mucosal edema and rhinorrhea present. No nasal deformity or septal deviation. Mouth/Throat: Uvula is midline, oropharynx is clear and moist and mucous membranes are normal. No oral lesions. No trismus in the jaw. No uvula swelling or dental caries. No oropharyngeal exudate, posterior oropharyngeal edema or posterior oropharyngeal erythema. Tonsils are 1+ on the right. Tonsils are 1+ on the left. No tonsillar exudate. Eyes: Conjunctivae and EOM are normal. Right eye exhibits no discharge. Left eye exhibits no discharge. Right eye exhibits no nystagmus. Left eye exhibits no nystagmus. Neck: Trachea normal, normal range of motion and phonation normal. Neck supple. No JVD present. No tracheal deviation, no edema and no erythema present. No thyroid mass and no thyromegaly present. Cardiovascular: Normal rate. Pulmonary/Chest: Effort normal. No stridor. Lymphadenopathy: Head (right side): No submental, no submandibular, no preauricular and no posterior auricular adenopathy present. Head (left side): No submental, no submandibular, no preauricular and no posterior auricular adenopathy present. He has no cervical adenopathy. Right cervical: No superficial cervical, no deep cervical and no posterior cervical adenopathy present. Left cervical: No superficial cervical, no deep cervical and no posterior cervical adenopathy present. Neurological: He is alert and oriented to person, place, and time. No cranial nerve deficit or sensory deficit. GCS eye subscore is 4. GCS verbal subscore is 5. GCS motor subscore is 6. Psychiatric: He has a normal mood and affect. His speech is normal and behavior is normal. Cognition and memory are normal. Nursing note and vitals reviewed. LABS AND OTHER DIAGNOSTIC TESTS Lab Results Component Value Date WBC 5.48 06/05/2017 HGB 12.9 (L) 06/05/2017 HCT 42.7 06/05/2017 MCV 68.2 (L) 06/05/2017 ASSESSMENT Diagnoses and all orders for this visit: Non-seasonal allergic rhinitis, unspecified trigger (Primary) Assessment & Plan: Patient demonstrates symptoms consistent [...] regimen in order to determine the effectiveness. Other acute recurrent sinusitis Assessment & Plan: The patient is currently [...] determine the extent of the disease process. Other orders - methylPREDNISolone (MEDROL DOSEPACK) 4 mg Dosepack; Take as directed on package - olopatadine 0.6 % spray,non-aerosol; Administer 2 sprays into affected nostril(s) 2 (two) times aday. - pseudoephedrine-guaifenesin 120-1,200 mg tablet extended release 12 hr; Take 1 tablet by mouth 2 (two) times a day. - azelastine (ASTELIN) 137 mcg (0.1 %) nasal spray; Administer 1 spray into each nostril 2 (two) times a day. Use in each nostril as directed PLAN/RECOMMENDATIONS Follow up in the office in in 3 months. Moses Laird DO documented in this encounter Miscellaneous Notes * Assessment & Plan Note - Moses Laird DO - 05/10/2018 12:50 PM CDT Associated Problem(s): Other acute recurrent sinusitis The patient is currently getting over an [...] determine the extent of the disease process. * Assessment & Plan Note - Moses Laird DO - 05/10/2018 12:49 PM CDT Associated Problem(s): Allergic rhinitis Patient demonstrates symptoms consistent with allergic rhinitis. [...] regimen in order to determine the effectiveness. documented in this encounter Plan of Treatment Scheduled Procedures Name Priority Associated Diagnoses Date/Ti co COLONOSCOPY Open Access Diverticulitis documented as of this encounter Visit Diagnoses Diagnosis Non-seasonal allergic rhinitis, unspecified trigger- Primary Other acute recurrent sinusitis documented in this encounter Historical Medications * This list may reflect changes made after this encounter. amoxicillin (AMOXIL) 875 mg tablet Take 875 mg by mouth 2 (two) times a day. 04/27/2018 10/17/2020 added in this encounter Care Teams Decorator Hand Relationship Specialty Start Date End Date No, Physician PCP - General 09/15/17 03/16/19 documented as of this encounter
--- OUTSIDE RECORDS SUMMARY | 2024-09-10 04:11 | XMS_ITS | Encounter Summary ---
Author Organization [facility] Address [address] [place] [id number] Care Team Providers Care Entry Tech Name Role Phone No, Physician Primary Care Provider [phone] Encounter Details Date Type Department Care Team (Latest Contact Info) Description 06/24/2018 7:23 AM CDT - 06/24/2018 3:40 PM CDT Hospital Encounter [facility] Jes Cook MD [address] [facility] [address] [place], [place] [id number] Chest pain; Atherosclerotic heart disease of craig coronary artery without angina pectoris; Essential (primary) hypertension; Hyperlipidemia; Other specified abnormal findings of blood chemistry; Uncomplicated asthma; Type 2 diabetes mellitus without complications (CMS/HCC); Obesity; Bipolar disorder ([facility]/HCC); Anxiety disorder Social History Tobacco Use Types Packs/Day Years Used Date Smoking Tobacco: Former Smokeless Tobacco: Never Alcohol Use Standard Drinks/Week Comments No 0 (1 standard drink = 0.6 oz pur e alcohol) Sex and Gender Information Value Date Recorded Sex Assigned at Not on file Legal Sex Male 1:40 AM [employer] Gender Identity Not on file Sexual Orientation Not on file documented as of this encounter Last Filed Vital Signs Vital Sign Reading Time Taken Comments Blood Pressure 129/71 06/22/2018 3:43 PM CDT Pulse 79 06/22/2018 3:43 PM CDT Temperature 36.4 ??C (97.5 ??F) 06/22/2018 3:43 PM CD T Respiratory Rate - - Oxygen Saturation 95% 06/22/2018 3:43 PM CDT Inhaled Oxygen Concentration - - Weight 127.9 kg (282 lb) 06/22/2018 3:43 PM CDT Height 185.4 cm (6' 1 ) 06/22/2018 3:43 PM CDT Body Mass Index 37.21 06/22/2018 3:43 PM CDT documented in this encounter Medications [...] Name Priority Date/Time Associated Diagnosis Comments CARDIAC CATHETERIZATION Routine 10/12/20 18 9:00 AM CDT APTT Routine 06/24/2018 8:03 AM CDT PROTIME-INR Routine 06/24/2018 8:03 AM CDT CARDIOLOGY REPORT 06/24/2018 12: 00 AM CDT CARDIOLOGY REPORT 06/24/2018 12: 00 AM CDT documented in this encounter Results * Cardiac Catheterization (06/24/2018 9:00 AM CDT) Anatomical Region Laterality Modality X-Ray Angiograph y 06/24/2018 9:00 AM CDT Narrative 06/30/2018 7:53 PM CDT DATE OF SERVICE: 06/24/2018 INDICATIONS : ??Chest pain. BRIEF HISTORY: He has history of essential hypertension, obesity and dyslipidemia. ??Reportedly, patient had abnormal troponin at [facility], he was transferred to [facility], and on repeat testing, it was normal at [facility]. ??Patient went AMA and continued to have ongoing chest pain, so he is here for coronary angiography at the kind request of Dr. Casillas. ??Dr. Casillas is the primary treating home and family living professor. ??I am involved with performing coronary angiography only. PROCEDURES PERFORMED: 1. ??Coronary angiography. 2. ??Left heart catheterization. PROCEDURE NOTE: After verbal, written and informed consent, the patient was brought into cardiac catheterization laboratory with an indication of ongoing chest pains. ??Risks, benefits, alternatives and complications of the procedure were discussed with the patient; and, the patient voices clear understanding of the procedure. ??The patient was clearly explained the risks included access site complications, pain and tenderness which is expected, bleeding complications, ecchymosis and tenderness at the access site, AV fistula, retroperitoneal bleed, need for emergent bypass surgery, rare risk of stroke, need for temporary pacemaker, contrast-induced allergies, contrast-induced nephropathy, ??respiratory problems, hemodynamic compromise, risk of stroke and were discussed as potential complications of the procedure. The patient voices clear understanding of the procedure. The patient has allergies to the iodinated contrast and contrast preparation was performed as per protocol. The patient has an allergy to LIDOCAINE, so we used Nesacaine 1% was used. ??I gave him approximately 16 Cc of Nesacaine for local anesthesia. ??The patient requested no moderate sedation. ??So no moderate sedation was given. Right groin was prepped and draped in regular fashion. ??Timeout was performed. ??With the fluoroscopic guidance with the modified Seldinger technique, a 6- Togolese sheath was inserted. ??Sheath was flushed. ??Using JL4 and JR4 catheters, left and right coronary arteries were engaged and multiple cineangiographic views were taken. ??Pigtail catheter was used for performing the left heart catheterization. ??Minimum contrast was used due to allergy and the patient had somatic issues with injection of contrast. ??Patient tolerated the procedure well. ??After the femoral angiography, Angio-Seal closure device was deployed with complete hemostasis at the groin. COMPLICATIONS: ??None. CORONARY ANGIOGRAPHIC FINDINGS: 1. ??Left main artery: ??Left main artery has luminal irregularities without any high-grade angiographic stenosis. 2. ??LAD: ??The LAD has luminal irregularities in the proximal third. ??Mid third of the LAD has no significant disease and has luminal irregularities . ??Distal third of the LAD has luminal irregularities with 10% angiographic stenosis. ??LAD gives origin to 2 medium caliber diagonal branches which are tortuous branches without high- grade stenosis. ??Diagonal 3 is a very small branch with luminal irregularities present and no high grade stenosis. 3. ??Ramus intermedius: ??Ramus intermedius is a medium caliber branch with luminal irregularities and has no high-grade angiographic stenosis present. 4. Left circumflex: ??Left circumflex has luminal irregularities in the proximal, mid and distal course. ??No high-grade stenosis is noted in the circumflex artery. ??Circumflex gives origin to 3 OM branches from the distal third with tortuosities and luminal irregularities without any high-grade angiographic stenosis present. 4. ??Right coronary artery: ??Right coronary artery is a codominant vessel. ??It has luminal irregularities in the proximal, mid and distal course. ??It gives origin to the RPLV branch with tortuosities and luminal irregularities. ??RPDA is contributed by the RCA making it a codominant circulation. LEFT HEART CATHETERIZATION: 1. ??LV pressure is 142/7. 2. ??Aortic pressure is 140/85 with a mean pressure 111 mmHg. 3. ??No aortic stenosis on the pullback from the LV to aorta. 4. ??LVEDP is around 16 mmHg. 5. ??Femoral angiography, no high-grade stenosis present in the common femoral artery, proximal portion of right profunda and superficial femoral arteries. CONCLUSIONS: 1. ??Nonobstructive coronary artery disease. 2. ??LVEDP is 16 mmHg. RECOMMENDATIONS: Aggressive cardiac risk factor modification recommended. ??Medical management for risk factors. ??Reduction of weight, Mediterranean diet/heart healthy diet discussed. ??Improved blood pressure control recommended. ??Look for noncardiac causes for chest pain and look for atrial fibrillation if the patient is symptomatic in future. ??Findings discussed with the patient. ??My involvement with this patient is limited to performing coronary angiography only. ?? I called Kandi I discussed the findings with her at patient's consent. ??I discussed the findings with Dr. Casillas. ??Further cardiac management as per Dr. Casillas. NTS Job: [id number] Dictated By: Jes Stewart MD Dictated For: Jes ??MD Terry [EOD] Procedure Note Provider, MD Rachael - 01/27/2021 DATE OF SERVICE: 06/24/2018 INDICATIONS : Chest pain. BRIEF HISTORY: He has history of essential hypertension, obesity anddyslipidemia. Reportedly, patient had abnormal troponin at [facility], he was transferred to [facility], and on repeat testing, it was normal[facility]. Patient went AMA and continued to have ongoing chestpain, so he is here for coronary angiography at the kind request of . Dr. Casillas is the primary treating home and family living professor. I am involvedwith performing coronary angiography only. PROCEDURES PERFORMED: 1. Coronary angiography. 2. Left heart catheterization. PROCEDURE NOTE: After verbal, written and informed consent, the patient was brought intocardiac catheterization laboratory with an indication of ongoing chestpains. Risks, benefits, alternatives and complications of the procedurewere discussed with the patient; and, the patient voices clearunderstanding of the procedure. The patient was clearly explained therisks included access site complications, pain and tenderness which isexpected, bleeding complications, ecchymosis and tenderness at the accesssite, AV fistula, retroperitoneal bleed, need for emergent bypass surgery,rare risk of stroke, need for temporary pacemaker, contrast-inducedallergies, contrast-induced nephropathy, respiratory problems,hemodynamic compromise, risk of stroke and were discussed aspotential complications of the procedure. The patient voices clearunderstanding of the procedure. The patient has allergies to the iodinatedcontrast and contrast preparation was performed as per protocol. The patient has an allergy to LIDOCAINE, so we used Nesacaine 1% was used.I gave him approximately 16 Cc of Nesacaine for local anesthesia. Thepatient requested no moderate sedation. So no moderate sedation wasgiven. Right groin was prepped and draped in regular fashion. Timeout wasperformed. With the fluoroscopic guidance with the modified Seldingertechnique, a 6-Togolese sheath was inserted. Sheath was flushed. Using JL4and JR4 catheters, left and right coronary arteries were engaged andmultiple cineangiographic views were taken. Pigtail catheter was used forperforming the left heart catheterization. Minimum contrast was used dueto allergy and the patient had somatic issues with injection of contrast.Patient tolerated the procedure well. After the femoral angiography,Angio-Seal closure device was deployed with complete hemostasis at thegroin. COMPLICATIONS: None. CORONARY ANGIOGRAPHIC FINDINGS: 1. Left main artery: Left main artery has luminal irregularities withoutany high-grade angiographic stenosis. 2. LAD: The LAD has luminal irregularities in the proximal third. Midthird of the LAD has no significant disease and has luminal irregularities. Distal third of the LAD has luminal irregularities with 10%angiographic stenosis. LAD gives origin to 2 medium caliber diagonalbranches which are tortuous branches without high-grade stenosis.Diagonal 3 is a very small branch with luminal irregularities present andno high grade stenosis. 3. Ramus intermedius: Ramus intermedius is a medium caliber branch withluminal irregularities and has no high-grade angiographic stenosispresent. 4. Left circumflex: Left circumflex has luminal irregularities in theproximal, mid and distal course. No high-grade stenosis is noted in thecircumflex artery. Circumflex gives origin to 3 OM branches from thedistal third with tortuosities and luminal irregularities without anyhigh-grade angiographic stenosis present. 4. Right coronary artery: Right coronary artery is a codominant vessel.It has luminal irregularities in the proximal, mid and distal course. Itgives origin to the RPLV branch with tortuosities and luminalirregularities. RPDA is contributed by the RCA making it a codominantcirculation. LEFT HEART CATHETERIZATION: 1. LV pressure is 142/7. 2. Aortic pressure is 140/85 with a meanpressure 111 mmHg. 3. No aortic stenosis on the pullback from the LV toaorta. 4. LVEDP is around 16 mmHg. 5. Femoral angiography, no high-gradestenosis present in the common femoral artery, proximal portion of rightprofunda and superficial femoral arteries. CONCLUSIONS: 1. Nonobstructive coronary artery disease. 2. LVEDP is 16 mmHg. RECOMMENDATIONS: Aggressive cardiac risk factor modification recommended. Medicalmanagement for risk factors. Reduction of weight, Mediterraneandiet/heart healthy diet discussed. Improved blood pressure controlrecommended. Look for noncardiac causes for chest pain and look foratrial fibrillation if the patient is symptomatic in future. Findingsdiscussed with the patient. My involvement with this patient is limitedto performing coronary angiography only. I called Kandi I discussed the findings with her at patient's consent. Idiscussed the findings with Dr. Casillas. Further cardiac management asper Dr. Casillas. NTS Job: [id number] Dictated By: Jes Stewart MD Dictated For: Jes Stewart MD [EOD] us Jesus Casillas MD CV CARDIAC CATH PROCEDURES F inal Result * (ABNORMAL) Protime-INR (06/24/2018 8:03 AM CDT) PT 14.6(H) 11.8 - 14.5 SECONDS 06/24/2018 8:19 AM CDT [facility] HISTORICAL RESULTS INR 1.14 06/24/2018 8:19 AM CDT [facility] HISTORICAL RESULTS Comment: Recommended Therapeutic range for Oral Anticoagulant Therapy No anti-coagulation therapy ? Normal Range: ?0.8-1.4 Anti-coagulation therapy ? Low intensity therapy ?2.0-3.0 ? High intensity therapy ?? 2.5-3.5 Critical Value ? Greater than or equal to 5.0 Patients should be monitored for serious bleeding. ?? 06/24/2018 8:03 AM CDT 06/24/2018 8:06 AM CDT Jes Stewart MD LAB BLOOD ORDERABLES F inal Result Performing Organization Address [facility] Co de Phone Number [facility] HISTORICAL RESULTS * (ABNORMAL) aPTT (06/24/2018 8:03 AM CDT) APTT 39(H) 26 - 33 SECONDS 06/24/2018 8:20 AM CDT [facility] HISTORICAL RESULTS 06/24/2018 8:03 AM CDT 06/24/2018 8:06 AM CDT Jes Stewart MD LAB BLOOD ORDERABLES F inal Result Performing Organization Address [facility] Co de Phone Number [facility] HISTORICAL RESULTS * CARDIOLOGY REPORT (06/24/2018 12:00 AM CDT) Anatomical Region Laterality Modality Other Narrative 06/24/2018 12:00 AM CDT Ordered by an unspecified provider. Historical Provider [facility] LIZZIE LLOYD Final Result * CARDIOLOGY REPORT (06/24/2018 12:00 AM CDT) Anatomical Region Laterality Modality Other Narrative 06/24/2018 12:00 AM CDT Ordered by an unspecified provider. Historical Provider [facility] PROCE LIVIERES Final Result documented in this encounter Visit Diagnoses Diagnosis Chest pain Unspecified chest pain Atherosclerotic heart disease of craig coronary artery without angina pectoris Essential (primary) hypertension Unspecified essential hypertension Hyperlipidemia Other and unspecified hyperlipidemia Other specified abnormal findings of blood chemistry Uncomplicated asthma Type 2 diabetes mellitus without complications ([facility]) (HCC) Obesity Obesity, unspecified Bipolar disorder (HCC) Bipolar disorder, unspecified Anxiety disorder Anxiety state, unspecified documented in this encounter Care Teams Entry Tech Relationship Specialty Start Date End Date No, Physician PCP - General 09/15/17 03/16/19 documented as of this encounter
--- OUTSIDE RECORDS SUMMARY | 2024-09-10 04:11 | XMS_ITS | Encounter Summary ---
Author Organization [facility] Healthcare Address [address] [place] [address] Care Team Providers Care Community [facility] Director Name Role Phone No, Physician Primary Care Provider [phone] Encounter Details Date Type Department Care Team (Latest Contact Info) Description 03/08/2018 3:57 PM CDT - 03/08/2018 5:50 PM CDT Hospital Encounter [facility] Junaid Bajwa MD [address] [place] [address] Chronic sinusitis; Dizziness and giddiness; Essential (primary) hypertension; Type 2 diabetes mellitus without complications (CMS/HCC); Other prison (current) drug therapy Social History Tobacco Use Types Packs/Day Years Used Date Smoking Tobacco: Former Smokeless Tobacco: Never Alcohol Use Standard Drinks/Week Comments No 0 (1 standard drink = 0.6 oz pur e alcohol) Sex and Gender Information Value Date Recorded Sex Assigned at Not on file 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 Gender Identity Not on file Sexual Orientation Not on file documented as of this encounter Last Filed Vital Signs Vital Sign Reading Time Taken Comments Blood Pressure 148/89 03/08/2018 3:59 PM CDT Pulse 63 03/08/2018 3:59 PM CDT Temperature 36.8 ??C (98.3 ??F) 03/08/2018 3:59 PM CD T Respiratory Rate - - Oxygen Saturation 98% 03/08/2018 3:59 PM CDT Inhaled Oxygen Concentration - - Weight 129.2 kg (284 lb 13.4 oz) 03/08/2018 3:59 PM CDT Height 188 cm (6' 2 ) 03/08/2018 3:59 PM CDT Body Mass Index 36.57 03/08/2018 3:59 PM CDT documented in this encounter Medications [...] Procedure Name Priority Date/Time Associated Diagnosis Comments HEMOGRAM WITH MANUAL DIFFERENTIAL Routine 03/08/2018 4:42 PM CDT COMPREHENSIVE METABOLIC PANEL Routine 03/08/2018 4:42 PM CDT UA WITH CULTURE REFLEX Routine 8 4:13 PM CDT XR CHEST 1 VIEW Routine 03/08/2018 4:[address] HEAD WO CONTRAST Routine 03/08/2018 4 :04 PM CDT documented in this encounter Results * (ABNORMAL) Hemogram with manual differential (03/08/2018 4:42 PM CDT) WBC 5.6 3.5 - 10.5 x10 3/ul 03/08/2018 5:05 PM CDT [facility] HISTORICAL RESULTS RBC 6.03(H) 4.11 - 5.71 x10 6/ul 03/08/2018 5:05 PM CDT [facility] HISTORICAL RESULTS Hemoglobin 13.1 13.0 - 17.0 g/dL 03/08/2018 5:05 PM CDT [facility] Top-Level Domain HISTORICAL RESULTS Hct 41.9 38.2 - 48.5 % 03/08/2018 5:05 PM CDT [facility] HISTORICAL RESULTS MCV 69.5(L) 80.0 - 97.0 fl MCH 21.7(L) 27.0 - 31.2 pg MCHC 31.3(L) 31.8 - 35.4 g/dl RDW 18.5(H) 11.6 - 14.8 % Plt Count 210 150 - 450 X10 3/ul MPV 9.2 7.4 - 10.4 fl Neut % 51.6 37.0 - 85.0 % Immature Gran % 0.2 0.0 - 3.0 % Lymph % 38.0 5.0 - 45.0 % [place] % 6.8 3.0 - 15.0 % Eos % 2.7 0.0 - 7.0 % Baso % 0.7 0.0 - 2.0 % Absolute Neuts (auto) 2.9 1.7 - 8.7 x10 3/ul Immature Gran # 0.0 0.0 - 0.3 x10 3/ul Absolute Lymphs (auto) 2.1 0.2 - 4.6 x10 3/ul Absolute Monos (auto) 0.4 0.1 - 1.5 x10 3/ul 03/08/2018 5:05 PM T [facility] HISTORICAL RESULTS Absolute Eos (auto) 0.2 0.0 - 0.7 x10 3/ul 03/08/2018 5:05 PM T [facility] HISTORICAL RESULTS Absolute Basos (auto) 0.0 0.0 - 0.2 x10 3/ul 03/08/2018 5:05 PM T [facility] HISTORICAL RESULTS Nucleat RBC Rel Count 0.0 0 - 3 #/100WBC 03/08/2018 5:05 PM T [facility] HISTORICAL RESULTS Absolute Nucleated RBC 0.00 x10 3/ul 03/08/2018 5:05 PM T [facility] HISTORICAL RESULTS Platelet Evaluation AGREE AGREE Comment:Slide review of plat elets correlates with instrument count. Anisocytosis 1+ Microcytosis 3+ 03/08/2018 6:00 PM T [facility] HISTORICAL RESULTS Absolute Neutrophils 2900 200 - 8000 /ul 03/08/2018 4:42 PM CDT 03/08/2018 4:47 PM CDT Thao Harris MOVABLE BULKHEAD INSTALLER LAB BLOOD ORDERABLES Final R esult [facility] HISTORICAL RESULTS * Comprehensive metabolic panel (03/08/2018 4:42 PM CDT) Sodium 139 135 - 145 mmol/L 03/08/2018 5:13 PM T [facility] HISTORICAL RESULTS Potassium 3.4 3.3 - 5.1 mmol/L 03/08/2018 5:13 PM T [facility] HISTORICAL RESULTS Chloride 102 96 - 108 mmol/L 03/08/2018 5:13 PM T [facility] HISTORICAL RESULTS Carbon Dioxide 28 22 - 32 mmol/L Anion Gap 9 7 - 16 03/08/2018 5:13 PM T [facility] HISTORICAL RESULTS Glucose 89 70 - 100 mg/dL BUN 9 6 - 20 mg/dL Creatinine 0.8 0.5 - 1.3 mg/dL Comment: [...] or on dialysis @ Est GFR (Cockcroft-G) 165 ml/MIN Comment: Estimated GFR(Cockroft-Gault)is used to calculate patient medication dosage Calcium 9.2 8.6 - 10.0 mg/dL Total Protein 7.8 6.4 - 8.3 g/dL Albumin 4.5 3.5 - 5.2 g/dL Globulin 3.3 2.3 - 3.5 gm/dL Albumin/Globulin Ratio 1.4 1.1 - 1.8 03/08/2018 5:13 PM T [facility] HISTORICAL RESULTS Total Bilirubin 1.2 0.0 - 1.2 mg/dL AST 26 0 - 40 U/L ALT 32 0 - 41 U/L Alkaline Phosphatase 58 40 - 129 U/L 03/08/2018 4:42 PM CDT 03/08/2018 4:47 PM T us Thao Harris MOVABLE BULKHEAD INSTALLER LAB BLOOD ORDERABLES Final R esult [facility] HISTORICAL RESULTS * UA with Culture Reflex (03/08/2018 4:13 PM T) Ur Collection Type CLEAN CATCH Ur Culture Indicated? C&S NOT INDICATED Urine Color YELLOW YELLOW Urine Clarity CLEAR CLEAR Urine Glucose (UA) NORMAL NORMAL mg/dL Urine Bilirubin NEGATIVE NEGATIVE mg/dl Urine Ketones NEGATIVE NEGATIVE mg/dL Ur Specific [place] 1.009 1.005 - 1.025 03/08/2018 4:45 PM T [facility] HISTORICAL RESULTS Urine Blood NEGATIVE NEGATIVE mg/dl 03/08/2018 4:45 PM T [facility] HISTORICAL RESULTS Urine pH 6.0 5.0 - 8.0 03/08/2018 4:45 PM T [facility] HISTORICAL RESULTS Urine Protein NEGATIVE NEGATIVE mg/dL 03/08/2018 4:45 PM T [facility] HISTORICAL RESULTS Urine Urobilinogen NORMAL NORMAL mg/dL 03/08/2018 4:45 PM T [facility] HISTORICAL RESULTS Urine Nitrite NEGATIVE NEGATIVE 03/08/2018 4:45 PM T [facility] HISTORICAL RESULTS Ur Leukocyte Esterase NEGATIVE NEGATIVE Arlen/ul Ur Microscopic Review Not Indicated Urine RBC 1 0 - 2 /HPF Urine WBC <1 0 - 2 /HPF Urine Mucus RARE /LPF 03/08/2018 4:13 PM CDT 03/08/2018 4:17 PM CDT Narrative [facility] HISTORICAL RESULTS - 03/08/2018 4:45 PM CDT Indication(s) for ordering ? Delirium/malaise/lethargy Thao Harris MOVABLE BULKHEAD INSTALLER LAB URINE ORDERABLES Final R esult [facility] HISTORICAL RESULTS * CT Head WO Contrast (03/08/2018 4:04 PM CDT) Anatomical Region Laterality Modality Head and Neck N/A Computed Tomogra phy 03/08/2018 4:04 PM CDT Impressions 03/08/2018 4:37 PM CDT ??Normal CT head. THIS IS AN ELECTRONICALLY VERIFIED FINAL REPORT 03/08/2018 4:34 PM - Electronically signed by Bal Myers [place]: [place] D: ??03/08/2018 4:34 PM T: ??03/08/2018 4:34 PM Report ID: [id number] Reading Location: ??[id number] [EOD] Narrative 03/08/2018 4:37 PM CDT EXAM DESCRIPTION: ??CT Head WO IV Contrast REASON FOR STUDY: ??Bilateral ear itching and dizziness. ??Frontal headache. ?? Symptoms for 4 days. TECHNIQUE: ??Axial images acquired through the brain without intravenous contrast. ??Images stored on PACS. Automated exposure control was used as a dose optimization technique for this examination. COMPARISON: ??12/11/2014 FINDINGS: BRAIN: No hemorrhage, edema or mass effect. No recent infarct. Normal white matter. EXTRA-AXIAL SPACES: No fluid collections. No masses. CALVARIUM: No fracture. PARANASAL SINUSES AND MASTOIDS: A retention cyst is seen within the right maxillary sinus. ORBITS: No significant abnormality. OTHER: No other significant abnormality. Procedure Note Provider, MD Rachael - 01/27/2021 EXAM DESCRIPTION: CT Head WO IV Contrast REASON FOR STUDY: Bilateral ear itching and dizziness. Frontal headache. Symptoms for 4 days. TECHNIQUE: Axial images acquired through the brain without intravenous contrast. Images stored on PACS. Automated exposure control was used as a dose optimization technique for this examination. COMPARISON: 12/11/2014 FINDINGS: BRAIN: No hemorrhage, edema or mass effect. No recent infarct. Normalwhite matter. EXTRA-AXIAL SPACES: No fluid collections. No masses. CALVARIUM: No fracture. PARANASAL SINUSES AND MASTOIDS: A retention cyst is seen within the right maxillary sinus. ORBITS: No significant abnormality. OTHER: No other significant abnormality. IMPRESSION: Normal CT head. THIS IS AN ELECTRONICALLY VERIFIED FINAL REPORT 03/08/2018 4:34 PM - Electronically signed by Bal Myers [place]: [place] Report ID: [id number] Reading Location: [id number] [EOD] Thao Harris MOVABLE BULKHEAD INSTALLER IMG CT PROCEDURES Final Resu lt * XR Chest 1 View (03/08/2018 4:04 PM CDT) Anatomical Region Laterality Modality Body, Chest N/A Radiographic Katarzyna ging 03/08/2018 4:04 PM CDT Impressions 03/08/2018 4:39 PM CDT ??No acute cardiopulmonary disease. THIS IS AN ELECTRONICALLY VERIFIED FINAL REPORT 03/08/2018 4:36 PM - Electronically signed by Bal Myers [place]: [place] D: ??03/08/2018 4:36 PM T: ??03/08/2018 4:36 PM Report ID: [id number] Reading Location: ??[id number] [EOD] Narrative 03/08/2018 4:39 PM CDT EXAM DESCRIPTION: ??Chest 1 View Portable REASON FOR STUDY: ??FEELING OF THROAT PAIN AND SWELLING AND SHORTNESS OF BREATH FOR 2 DAYS TECHNIQUE: ??Frontal radiographic view of the chest acquired. COMPARISON: ??08/20/2017 FINDINGS: LUNGS/PLEURA: No focal consolidation or pneumothorax. No pleural effusion. HEART/MEDIASTINUM: Heart size is normal. Normal mediastinal and hilar contours. HARDWARE/LINES/TUBES: None. BONES: No acute findings. OTHER: No other significant finding. Procedure Note Provider, MD Rachael - 01/27/2021 EXAM DESCRIPTION: Chest 1 View Portable REASON FOR STUDY: FEELING OF THROAT PAIN AND SWELLING AND SHORTNESS OFBREATH FOR 2 DAYS TECHNIQUE: Frontal radiographic view of the chest acquired. COMPARISON: 08/20/2017 FINDINGS: LUNGS/PLEURA: No focal consolidation or pneumothorax. No pleuraleffusion. HEART/MEDIASTINUM: Heart size is normal. Normal mediastinal and hilarcontours. HARDWARE/LINES/TUBES: None. BONES: No acute findings. OTHER: No other significant finding. IMPRESSION: No acute cardiopulmonary disease. THIS IS AN ELECTRONICALLY VERIFIED FINAL REPORT 03/08/2018 4:36 PM - Electronically signed by Bal Myers [place]: [place] Report ID: [id number] Reading Location: [id number] [EOD] us Thao Harris MOVABLE BULKHEAD INSTALLER IMG XR PROCEDURES Final Resu lt documented in this encounter Visit Diagnoses Diagnosis Chronic sinusitis Unspecified sinusitis (chronic) Dizziness and giddiness Essential (primary) hypertension Unspecified essential hypertension Type 2 diabetes mellitus without complications (CMS/HCC) (HCC) Other prison (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 Care Teams Community Center Director Relationship Specialty Start Date End Date No, Physician PCP - General 09/15/17 03/16/19 documented as of this encounter
--- OUTSIDE RECORDS SUMMARY | 2024-09-10 04:11 | XMS_ITS | Encounter Summary ---
Author Organization [facility] Address [address] [place] [address] Phone Care Team Providers Care Office Support Specialist Name Role Phone No, Physician Primary Care Provider [phone] Reason for Visit * Reason Onset Date Comments Pt needs to schedule appointment 08/25/2018 Encounter Details Date Type Department Care Team (Late st Contact Info) Description 08/25/2018 Telephone [facility] Surgery [address] [facility] [address], [place] [address] Ayah Clarke Pt needs to schedule appointment Social History Tobacco Use Types Packs/Day Years Used Date Smoking Tobacco: Former Smokeless Tobacco: Never Alcohol Use Standard Drinks/Week Comments No 0 (1 standard drink = 0.6 oz pur e alcohol) Sex and Gender Information Value Date Recorded Sex Assigned at Not on file 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 Sadler. I will now send out a certified letter. MOBILE documented in this encounter Plan of Treatment Scheduled Procedures Name Priority Associated Diagnoses Date/Ti me COLONOSCOPY Open Access Diverticulitis documented as of this encounter Visit Diagnoses Not on filedocumented in this encounter Care Teams Office Support Specialist Relationship Specialty Start Date End Date No, Physician PCP - General 09/15/17 03/16/19 documented as of this encounter
--- OUTSIDE RECORDS SUMMARY | 2024-09-10 04:11 | XMS_ITS | Encounter Summary ---
Author Organization [facility] Healthcare Address [address] [place] [id number] Care Team Providers Care [facility] Worker Name Role Phone No, Physician Primary Care Provider [phone] Encounter Details Date Type Department Care Team (Late st Contact Info) Description 01/18/2019 12:19 PM CDT - 01/18/2019 5:06 PM CDT Hospital Encounter [address] [id number] Unknown, Jordy Todd II, MD [address] [place] [id number] Discharge Disposition: Discharge to home or self care Social History Tobacco Use Types Packs/Day Years Used Date Smoking Tobacco: Former Smokeless Tobacco: Never Alcohol Use Standard Drinks/Week Comments No 0 (1 standard drink = 0.6 oz pur e alcohol) Sex and Gender Information Value Date Recorded Sex Assigned at Not on file Legal Sex Male 1:40 AM [employer] Gender Identity Not on file Sexual Orientation Not on file documented as of this encounter Last Filed Vital Signs Vital Sign Reading Time Taken Comments Blood Pressure 157/84 01/18/2019 12:36 PM CDT Pulse 62 01/18/2019 12:36 PM CDT Temperature 36.9 ??C (98.4 ??F) 01/18/2019 12:36 PM C DT Respiratory Rate - - Oxygen Saturation 97% 01/18/2019 12:36 PM CDT Inhaled Oxygen Concentration - - Weight 124.3 kg (274 lb) 01/18/2019 12:36 PM CDT Height 185.4 cm (6' 1 ) 01/18/2019 12:36 PM CDT Body Mass Index 36.15 01/18/2019 12:36 PM CDT documented in this encounter Medications [...] Date/Time Associated Diagnosis Comments TROPONIN I Routine 01/18/2019 3:25 PM CDT ECG 12-LEAD 01/18/2019 12:44 PM CDT TNI WITH LIPID PANEL Routine 01/18/2019 12:30 PM CDT CBC WITH AUTO DIFFERENTIAL Routine 01/18/2019 12:30 PM CDT B-TYPE NATRIURETIC PEPTIDE Routine 01/18/2019 12:30 PM CDT COMPREHENSIVE METABOLIC PANEL Routine 01/18/2019 12:30 PM CDT XR CHEST PA LATERAL 2 VIEWS 01/18/2019 12:29 PM CDT ECG 12-LEAD 01/18/2019 12:22 PM CDT documented in this encounter Results * Troponin I (01/18/2019 3:25 PM CDT) Troponin I <0.300 0.000 - 0.300 ng/mL [facility] Comment: Reference using MARCK Chemiluminescence ? Negative: Repeat in 4-6 hours as indicated. 01/18/2019 3:25 PM CDT 01/18/2019 3:27 PM CDT Narrative Resulting Agency Comment ER us Landy [facility] BLOOD ORDERABLES Laura l Result [facility] [address] [phone] * ECG 12 lead (01/18/2019 12:44 PM CDT) Ventricular Rate EKG/Min [address] [facility] Atrial Rate 61 BPM [facility] SD-Interval (MSEC) [address] [facility] QRS-Interval (MSEC) [address] [facility] QT-Interval (MSEC) [address] [facility] QTc [address] [facility] P [place] [address] [facility] [place] [address] [facility] [place] [address] [facility] Diagnosis Normal sinus rhythm Normal ECG When compared with ECG of 18-JAN-2019 12:22, No significant change was found [facility] 01/18/2019 12:4 4 PM CDT 01/18/2019 1:32 PM CDT Narrative Resulting Agency Comment PREADT us Notinfile Unknown ECG ORDERABLES Final Result Performing Organization Address City/State/[facility] Co de Phone Number [facility] [address] * B-type natriuretic peptide (01/18/2019 12:30 PM CDT) Pathologist [facility] B-Natriuretic Peptide 33 0 - 100 pg/mL [facility] Comment: B Natriutetic Peptide METHOD: ??Siemens Centaur XP using JAZMIN. Decision threshold of 100 pg/mL has been demonstrated to provide the maximal combination of sensitivity, specificity, and predictive value for the diagnosis of congestive heart failure (CHF). ??Virtually all patients with no evidence of CHF have BNP values <100 pg/mL. NOTE: ??Nesiritide (Natrecor) interferes with the BNP assay. BNP result will be invalid if drawn within 2 hours of bolus or infusion of nesiritide. 01/18/2019 12:3 0 PM CDT 01/18/2019 12:34 PM CDT Narrative Resulting Agency Comment ER us Landy [facility] BLOOD ORDERABLES Laura l Result [facility] [address] [place] [address], [facility] [phone] * (ABNORMAL) Comprehensive metabolic panel (01/18/2019 12:30 PM CDT) Sodium 143 135 - 145 mmol/L [facility] Potassium 3.3 3.3 - 5.1 mmol/L [facility] Chloride 104 96 - 108 mmol/L [facility] Carbon Dioxide 28 22 - 32 mmol/L [facility] Anion Gap 11 7 - 16 [facility] Glucose 94 70 - 100 mg/dL [facility] BUN 7(L) 8 - 25 mg/dL [facility] Creatinine 0.9 0.5 - 1.3 mg/dL [facility] Comment: NOTE: Estimated GFR (Cockroft-Gault) will NOT be calculated unless patient Height and Weight were entered. Also, Kidney Disease Stage (GFR) and Estimated GFR (Cockroft-Gault) will NOT be calculated if Creatinine result is <0.2. Kidney Disease Stage >90 mL/MIN [facility] Comment: NOTE; ??The GFR is an estimated [...] failure or on dialysis Est GFR (Cockcroft-G) 142 ml/MIN [facility] Comment: Estimated GFR(Cockroft-Gault)is used to calculate patient medication dosage Calcium 9.2 8.6 - 10.3 mg/dL [facility] Total Protein 8.3 6.4 - 8.3 g/dL [facility] Albumin 4.6 3.5 - 5.0 g/dL [facility] Globulin 3.7(H) 2.3 - 3.5 gm/dL [facility] Albumin/Globulin Ratio 1.2 1.1 - 1.8 [facility] Total Bilirubin 1.0 0.0 - 1.2 mg/dL [facility] AST 40 0 - 40 U/L [facility] ALT 54(H) 0 - 41 U/L [facility] Alkaline Phosphatase 76 40 - 129 U/L [facility] 01/18/2019 12:3 0 PM CDT 01/18/2019 12:34 PM CDT Narrative Resulting Agency Comment ER Landy [facility] BLOOD ORDERABLES Laura la Result [facility] [address] [place] [address], [facility] [phone] * (ABNORMAL) TNI with LIPID PANEL (01/18/2019 12:30 PM CDT) Troponin I <0.300 0.000 - 0.300 ng/mL [facility] Comment: Reference using MARCK Chemiluminescence ? Negative: Repeat in 4-6 hours as indicated. Triglycerides 219(H) 0 - 149 mg/dL [facility] Comment: National Lipid Association/NCEP Guidelines: ?? Normal ?< 150 mg/dL ?? Borderline high ?? 150-199 mg/dL ?? High ?200-499 mg/dL ?? Very High ? >=500 mg/dL Cholesterol 147 0 - 199 mg/dL [facility] Comment: National Lipid Association/NCEP Guidelines: Desirable ? < 200 mg/dL Borderline high: ??200-239 mg/dL High Risk: ?>=240 mg/dL HDL Cholesterol 24 mg/dL [facility] Comment: Reference Ranges: ? Males: >=40 mg/dL ? Females: >=50 mg/dL LDL Cholesterol, Calc 79 0 - 129 mg/dL [facility] Comment: National Lipid Association/NCEP Guidelines: ??Optimal ? < 100 mg/dL ??Near Optimal ?100-129 mg/dL ??Borderline high 130-159 mg/dL ??High ?>=160 mg/dL Cholesterol/HDL Ratio 6.1 [facility] Comment: Optimal ??< 3.5:1 High ? > 5:1 01/18/2019 12:3 0 PM CDT 01/18/2019 12:34 PM CDT Narrative Resulting Agency Comment ER us Landy [facility] BLOOD ORDERABLES Laura la Result [facility] [address] [place] [address], [facility] [phone] * (ABNORMAL) CBC with auto differential (01/18/2019 12:30 PM CDT) WBC 6.2 3.8 - 9.9 X10 3/ul [facility] RBC 6.25(H) 4.30 - 5.80 x10 6/ul [facility] Hemoglobin 14.8 13.0 - 17.5 g/dL [facility] Hct 46.8 38.9 - 50.3 % [facility] MCV 74.9(L) 81.3 - 96.4 fl [facility] MCH 23.7(L) 27.1 - 33.3 pg [facility] MCHC 31.6(L) 32.3 - 35.7 g/dl [facility] RDW 18.1(H) 11.1 - 14.9 % [facility] Plt Count 199 150 - 400 x10 3/ul [facility] MPV 9.3 9.1 - 12.3 fl [facility] Neut % 53.4 % [facility] Immature Gran % 0.2 % [facility] Lymph % 35.2 % [facility] Swift % 7.0 % [facility] Eos % 3.4 % [facility] AUTO BASO % 0.8 % [facility] NEUTROPHIL ABS # 3.3 1.7 - 6.5 x10 3/ul [facility] Immature Gran # 0.0 0.0 - 0.1 x10 3/ul [facility] Absolute Lymphs (auto) 2.2 0.8 - 3.3 x10 3/ul [facility] Absolute Monos (auto) 0.4 0.2 - 0.8 x10 3/ul [facility] Absolute Eos (auto) 0.2 0.0 - 0.5 x10 3/ul [facility] BASOPHIL ABS # 0.1 0.0 - 0.1 x10 3/ul [facility] Nucleat RBC Rel Count 0.0 #/100WBC [facility] NRBC abs 0.00 0.00 - 0.01 x10 3/ul [facility] Absolute Neutrophils 3,300 200 - 8,000 /ul [facility] 01/18/2019 12:3 0 PM CDT 01/18/2019 12:34 PM CDT Narrative Resulting Agency Comment ER us Landy [facility] BLOOD ORDERABLES Laura la Result [place] [id number] [place] [address], [facility] [phone] * XR Chest Pa Lateral 2 Views (01/18/2019 12:29 PM CDT) Anatomical Region Laterality Modality Body, Chest N/A Radiographic Katarzyna ging 01/18/2019 12:4 7 PM CDT Narrative 01/18/2019 12:50 PM CDT Patient Name: CARLOS KELLY ?Ordering Dr: Landy Sloan PA-C ?? D.O.B: 1970 ? Exam Date: 01/18/19 ?? 1229 ?? Age: 48 ?Sex: Male ? MR#: [id number] ?? Loc: ? RADIOLOGY REPORT ?? Order #[id number] ?? Radiology ? Chest 2 Views ? Signed ?? EXAM DESCRIPTION: ??Chest 2 Views ? REASON FOR STUDY: ??Shortness of breath and nonproductive cough since yesterday. ? TECHNIQUE: ??Frontal and lateral radiographic views of the chest acquired. ? COMPARISON: ??Chest radiograph from March 08, 2018. ? FINDINGS: ?LUNGS/PLEURA: No evidence of airspace consolidation, pleural effusion, or ?? pneumothorax. ? HEART/MEDIASTINUM: Normal heart size. Normal mediastinal and hilar contours. ? HARDWARE/LINES/TUBES: None. ? BONES: No acute or aggressive appearing osseous abnormalities. ? IMPRESSION: ??No evidence of an acute cardiopulmonary abnormality. ? THIS IS AN ELECTRONICALLY VERIFIED FINAL REPORT ?? 01/18/2019 12:50 PM - Electronically signed by Miguel Lynne M.D. ?? Miguel Barina M.D. ? AB ?? D: ??01/18/2019 12:50 PM ?? T: ? Report ID: [id number] ?? Reading Location: ??[id number] ? REPORT ELECTRONICALLY SIGNED IN OTHER VENDOR SYSTEM ?? Resulting Agency Comment P Procedure Note Miguel Lynne MD - 01/18/2019 Patient Name: CARLOS KELLY Dr: Landy Sloan PA-C, D.O.B: 1970 Exam Date: 01/18/19 1229 Age: 48 Sex: Male MR#: [id number] Loc: RADIOLOGY REPORT Order #[id number] Radiology Chest 2 Views Signed EXAM DESCRIPTION: Chest 2 Views REASON FOR STUDY: Shortness of breath and nonproductive cough sinceyesterday. TECHNIQUE: Frontal and lateral radiographic views of the chest acquired. COMPARISON: Chest radiograph from March 08, 2018. FINDINGS: LUNGS/PLEURA: No evidence of airspace consolidation, pleural effusion,or pneumothorax. HEART/MEDIASTINUM: Normal heart size. Normal mediastinal and hilarcontours. HARDWARE/LINES/TUBES: None. BONES: No acute or aggressive appearing osseous abnormalities. IMPRESSION: No evidence of an acute cardiopulmonary abnormality. THIS IS AN ELECTRONICALLY VERIFIED FINAL REPORT 01/18/2019 12:50 PM - Electronically signed by Miguel Lynne M.D. AB T: Report ID: [id number] Reading Location: [place] [address] REPORT ELECTRONICALLY SIGNED IN OTHER VENDOR SYSTEM Landy COLLIER IMG XR PROCEDURES Final R esult * ECG 12 lead (01/18/2019 12:22 PM CDT) Ventricular Rate EKG/Min 63 BPM ER [facility] Atrial Rate 63 BPM [facility] SD-Interval (MSEC) 130 ms [facility] QRS-Interval (MSEC) 94 ms [facility] QT-Interval (MSEC) 396 ms [facility] QTc 405 ms ER [facility] P [place] 1 degrees ER [facility] R [place] 25 degrees ER [facility] T [place] 49 degrees ER [facility] Diagnosis Normal sinus rhythm Nonspecific ST abnormality Abnormal ECG When compared with ECG of 24-JUN-2018 12:16, Nonspecific T wave abnormality no longer evident in Inferior leads ER RADI[facility] 01/18/2019 12:2 2 PM CDT 01/18/2019 1:31 PM CDT Narrative Resulting Agency Comment PREADT Landy COLLIER ECG ORDERABLES Final Res ult ER RADIOLOGY documented in this encounter Visit Diagnoses Not on filedocumented in this encounter Care Teams Milk [employer] Worker Relationship Specialty Start Date End Date No, Physician PCP - General 09/15/17 03/16/19 documented as of this encounter
--- OUTSIDE RECORDS SUMMARY | 2024-09-10 04:11 | XMS_ITS | Encounter Summary ---
Author Organization [facility] Healthcare Address [address] [place] [id number] Care Team Providers Care Snout Puller Name Role Phone No, Physician Primary Care Provider [phone] Encounter Details Date Type Department Care Team (Latest Contact Info) Description 11/11/2018 6:31 PM OXYACETYLENE BURNER - 11/11/2018 9:12 PM OXYACETYLENE BURNER Hospital Encounter [address] [address] Adin Restrepo MD [address] [place] [address] [phone] Discharge Disposition: Discharge to home or self care Social History Tobacco Use Types Packs/Day Years Used Date Smoking Tobacco: Former Smokeless Tobacco: Never Alcohol Use Standard Drinks/Week Comments No 0 (1 standard drink = 0.6 oz pur e alcohol) Sex and Gender Information Value Date Recorded Sex Assigned at Not on file Legal Sex Male 1:40 AM OXYACETYLENE BURNER Gender Identity Not on file Sexual Orientation Not on file documented as of this encounter Last Filed Vital Signs Vital Sign Reading Time Taken Comments Blood Pressure 107/46 11/11/2018 6:41 PM OXYACETYLENE BURNER Pulse 67 11/11/2018 6:41 PM OXYACETYLENE BURNER Temperature 36.7 ??C (98 ??F) 11/11/2018 6:41 PM OXYACETYLENE BURNER Respiratory Rate - - Oxygen Saturation 97% 11/11/2018 6:41 PM OXYACETYLENE BURNER Inhaled Oxygen Concentration - - Weight 128.4 kg (283 lb 0.5 oz) 11/11/2018 6:41 PM OXYACETYLENE BURNER Height 185.4 cm (6' 1 ) 11/11/2018 6:41 PM OXYACETYLENE BURNER Body Mass Index 37.34 11/11/2018 6:41 PM OXYACETYLENE BURNER documented in this encounter Medications at Time [...] Diagnosis Comments CBC WITH AUTO DIFFERENTIAL Routine 11/11/2018 7:05 PM OXYACETYLENE BURNER LIPASE Routine 11/11/2018 7:05 PM OXYACETYLENE BURNER AMYLASE Routine 11/11/2018 7:05 PM OXYACETYLENE BURNER AMMONIA Routine 11/11/2018 7:05 PM OXYACETYLENE BURNER COMPREHENSIVE METABOLIC PANEL Routine 11/11/2018 7:05 PM OXYACETYLENE BURNER UA WITH CULTURE REFLEX Routine 9 6:[address] ABDOMEN PELVIS WO CONTRAST Routine 11/11/2018 12:00 AM OXYACETYLENE BURNER documented in this encounter Results * Lipase (11/11/2018 7:05 PM OXYACETYLENE BURNER) Lipase 42 13 - 60 U/L 11/11/2018 7:05 PM OXYACETYLENE BURNER 11/11/2018 7:12 PM OXYACETYLENE BURNER Narrative [facility] HISTORICAL RESULTS - 11/11/2018 7:38 PM OXYACETYLENE BURNER us Historical Provider LAB BLOOD ORDERABLES Laura l Result [facility] HISTORICAL RESULTS * (ABNORMAL) Comprehensive metabolic panel (11/11/2018 7:05 PM OXYACETYLENE BURNER) Sodium 141 135 - 145 mmol/L Potassium 3.5 3.3 - 5.1 mmol/L Chloride 101 96 - 108 mmol/L Carbon Dioxide 29 22 - 32 mmol/L Anion Gap 11 7 - 16 Glucose 89 70 - 100 mg/dL BUN 9 8 - 25 mg/dL Creatinine 0.8 0.5 - 1.3 mg/dL 11/11/2018 7:38 PM Learnerator [facility] Dheere Bolo HISTORICAL RESULTS Comment: NOTE: Estimated GFR (Cockroft-Gault) will NOT be calculated unless patient Height and Weight were entered. Also, Kidney Disease Stage (GFR) and Estimated GFR (Cockroft-Gault) will NOT be calculated if Creatinine result is <0.2. Kidney Disease Stage > 90 mL/MIN 11/11/2018 7:38 PM [facility] HISTORICAL RESULTS Comment: NOTE; ??The GFR is an estimated [...] dialysis @ Est GFR (Cockcroft-G) 162 ml/MIN 11/11/2018 7:38 PM [facility] HISTORICAL RESULTS Comment: Estimated GFR(Cockroft-Gault)is used to calculate patient medication dosage Calcium 9.6 8.6 - 10.3 mg/dL 11/11/2018 7:38 PM [facility] HISTORICAL RESULTS Total Protein 8.2 6.4 - 8.3 g/dL 11/11/2018 7:38 PM Learnerator [facility] Dheere Bolo HISTORICAL RESULTS Albumin 4.6 3.5 - 5.0 g/dL 11/11/2018 7:38 PM [facility] HISTORICAL RESULTS Globulin 3.6(H) 2.3 - 3.5 gm/dL Albumin/Globulin Ratio 1.3 1.1 - 1.8 Total Bilirubin 1.1 0.0 - 1.2 mg/dL 11/11/2018 7:[address] [facility] HISTORICAL RESULTS AST 35 0 - 40 U/L ALT 44(H) 0 - 41 U/L Alkaline Phosphatase 75 40 - 129 U/L 11/11/2018 7:05 PM OXYACETYLENE BURNER 11/11/2018 7:12 PM OXYACETYLENE BURNER Narrative [facility] HISTORICAL RESULTS - 11/11/2018 7:38 PM OXYACETYLENE BURNER us Historical Provider LAB BLOOD ORDERABLES Laura l Result [facility] HISTORICAL RESULTS * (ABNORMAL) CBC with auto differential (11/11/2018 7:05 PM OXYACETYLENE BURNER) WBC 6.3 3.8 - 9.9 X10 3/ul RBC 6.18(H) 4.30 - 5.80 x10 6/ul Hemoglobin 14.0 13.0 - 17.5 g/dL Hct 45.3 38.9 - 50.3 % MCV 73.3(L) 81.3 - 96.4 fl MCH 22.7(L) 27.1 - 33.3 pg MCHC 30.9(L) 32.3 - 35.7 g/dl RDW 18.1(H) 11.1 - 14.9 % Plt Count 191 150 - 400 x10 3/ul MPV 9.2 9.1 - 12.3 fl Neut % 58.6 % Immature Gran % 0.2 % 9 7:15 PM [facility] HISTORICAL RESULTS Lymph % 31.3 % [place] % 6.4 % Eos % 2.9 % Baso % 0.6 % Absolute Neuts (auto) 3.7 1.7 - 6.5 x10 3/ul Immature Gran # 0.0 0.0 - 0.1 x10 3/ul Absolute Lymphs (auto) 2.0 0.8 - 3.3 x10 3/ul Absolute Monos (auto) 0.4 0.2 - 0.8 x10 3/ul Absolute Eos (auto) 0.2 0.0 - 0.5 x10 3/ul Absolute Basos (auto) 0.0 0.0 - 0.1 x10 3/ul Nucleat RBC Rel Count 0.0 #/100WBC Absolute Nucleated RBC 0.00 0.00 - 0.01 x10 3/ul 11/11/2018 7:15 [address] [facility] HISTORICAL RESULTS Absolute Neutrophils 3700 200 - 8000 /ul 11/11/2018 7:15 [address] [facility] HISTORICAL RESULTS 11/11/2018 7:05 PM OXYACETYLENE BURNER 11/11/2018 7:12 PM OXYACETYLENE BURNER Narrative [facility] HISTORICAL RESULTS - 11/11/2018 7:15 PM OXYACETYLENE BURNER Historical Provider MD LAB BLOOD ORDERABLES Laura l Result [facility] HISTORICAL RESULTS * Amylase (11/11/2018 7:05 PM OXYACETYLENE BURNER) Amylase 61 28 - 100 U/L 11/11/2018 7:05 PM OXYACETYLENE BURNER 11/11/2018 7:12 PM OXYACETYLENE BURNER Narrative [facility] HISTORICAL RESULTS - 11/11/2018 7:38 PM OXYACETYLENE BURNER Historical Provider MD LAB BLOOD ORDERABLES Laura l Result Performing Organization Address [facility]/ZIP Co de Phone Number [facility] HISTORICAL RESULTS * Ammonia (11/11/2018 7:05 PM OXYACETYLENE BURNER) Ammonia 65 27 - 102 ug/dL 11/11/2018 7:42 [address] [facility] HISTORICAL RESULTS 11/11/2018 7:05 PM OXYACETYLENE BURNER 11/11/2018 7:12 PM OXYACETYLENE BURNER Narrative [facility] HISTORICAL RESULTS - 11/11/2018 7:42 PM OXYACETYLENE BURNER [facility] Provider LAB BLOOD ORDERABLES Laura l Result [facility] HISTORICAL RESULTS * UA with Culture Reflex (11/11/2018 6:54 PM OXYACETYLENE BURNER) Ur Collection Type CLEAN CATCH 11/11/2018 7:[address] [facility] HISTORICAL RESULTS Ur Culture Indicated? C&S NOT INDICATED 11/11/2018 7:[address] [facility] HISTORICAL RESULTS Urine Color YELLOW YELLOW Urine Clarity CLEAR CLEAR Urine Glucose (UA) NORMAL NORMAL mg/dL Urine Bilirubin NEGATIVE NEGATIVE mg/dl Urine Ketones NEGATIVE NEGATIVE mg/dL Ur Specific [place] 1.015 1.005 - 1.025 Urine Blood NEGATIVE NEGATIVE mg/dl Urine pH 6.0 5.0 - 8.0 Urine Protein NEGATIVE NEGATIVE mg/dL Urine Urobilinogen NORMAL NORMAL mg/dL Urine Nitrite NEGATIVE NEGATIVE Ur Leukocyte Esterase NEGATIVE NEGATIVE Arlen/ul Ur Microscopic Review Not Indicated 11/11/2018 6:54 PM OXYACETYLENE BURNER 11/11/2018 7:11 PM OXYACETYLENE BURNER Narrative [facility] HISTORICAL RESULTS - 11/11/2018 7:19 PM OXYACETYLENE BURNER Indication(s) for ordering ? Pain-pelv/flank/suprapubc ?? us Historical Provider LAB URINE ORDERABLES Laura l Result [facility] HISTORICAL RESULTS * CT Abdomen Pelvis WO Contrast (11/11/2018 12:00 AM OXYACETYLENE BURNER) Anatomical Region Laterality Modality Body N/A Computed Tomogra phy 11/11/2018 Impressions 11/11/2018 8:34 PM OXYACETYLENE BURNER ?? 1.Unchanged circumferential wall thickening of the distal descending colon, and more pronounced masslike circumferential wall thickening of the proximal to mid segments of the sigmoid colon. ??This is superimposed on a background of colonic diverticulosis, and there is unchanged tethered appearance of the urinary bladder dome to the sigmoid colon. ??A neoplastic process is unlikely given the stability of this process since 2017. ??This is likely sequela of a previous inflammatory or infectious process, including diverticulitis. ??No acute finding is noted at this level. ??Particularly, there is no evidence of acute diverticulitis at this time. 2.Nonobstructing stones in both kidneys, measuring up to 4 mm. ??No hydronephrosis. ??No stones in the ureters or urinary bladder. 3.Mild hepatosplenomegaly. ??This is similar to previous studies, and remains nonspecific. 4.Other incidental findings as above. THIS IS AN ELECTRONICALLY VERIFIED FINAL REPORT 11/11/2018 8:30 PM - Electronically signed by Arnie Robert M.D. RL D: ??11/11/2018 8:30 PM T: Report ID: [id number] Reading Location: ??[id number] [EOD] Narrative 11/11/2018 8:34 PM OXYACETYLENE BURNER EXAM DESCRIPTION: ??CT Abd/Pelvis WO IV Contrast REASON FOR STUDY: ??Abdominal pain in the left lower quadrant. ??Mass in colon. TECHNIQUE: ??CT scan of the abdomen and pelvis performed without intravenous and without oral contrast using helical scanning technique. Reconstructed coronal and sagittal MPR images reviewed. All images stored on PACS. ?? Automated exposure control was used as a dose optimization technique for this examination. COMPARISON: ??CT of the abdomen and pelvis dated 12/02/2016, 11/20/2016, 03/30/2016. FINDINGS: The sensitivity for detection of visceral lesions is diminished without the use of intravenous contrast. LOWER CHEST: There are minimal areas of subsegmental atelectasis in the lung bases at the posterior costophrenic angles. ??The lower lungs are otherwise clear. ??No pleural effusion. ??No pneumothorax. ??Imaged portions of the heart are unremarkable. ??No pericardial effusion. LIVER: The liver appears mildly enlarged, but no focal hepatic lesion is seen on this noncontrast study. GALLBLADDER: Surgically absent. BILE DUCTS: No appreciable dilatation of the intrahepatic or extrahepatic ducts. SPLEEN: The spleen is enlarged, measuring approximately 16.9 cm in span. ??This is unchanged compared to the previous study. ??No focal splenic lesions are seen. PANCREAS: No identified cystic or solid masses. ??No significant calcifications. No adjacent inflammation or peripancreatic fluid collections. Pancreatic duct not dilated. ADRENALS: Normal. KIDNEYS/URINARY TRACT: Kidneys are normal in size. ??No focal renal parenchymal lesions noted on this noncontrast study. ??There are several tiny nonobstructing stones in both kidneys, measuring up to 4 mm. ??There is no hydronephrosis in either kidney. ??Ureters are normal in caliber, and contain no stones. ??The dome of the urinary bladder appears tethered to the sigmoid colon, best seen between images 133, and 137. ??Appearance of the urinary bladder is otherwise unremarkable, and there is no gas within the urinary bladder lumen to definitely suggest a colovesical fistula. ??This tethering is unchanged compared to previous studies. GI: The stomach is normal in appearance. ??The small bowel demonstrate no signs of obstruction or inflammation. ??The appendix is normal. ??There is a moderate amount of stool in the colon. ??Circumferential wall thickening is noted in the distal descending colon, as well as more pronounced diffuse thickening of the proximal to mid segments of the sigmoid colon. ??Appearance of these segments is similar to previous studies, and no significant interval change is identified on this noncontrast examination. ??The dome of the urinary bladder is tethered to this segment, as described above. ??A background of mild colonic diverticulosis is present. ??The distal sigmoid colon, and the rectum are unremarkable. ??No pneumatosis. PERITONEUM: No ascites or free air. RETROPERITONEUM: No mass or adenopathy. REPRODUCTIVE: The prostate is mildly enlarged. ??Seminal vesicles are unremarkable. VASCULATURE: No abdominal aortic aneurysm. MUSCULOSKELETAL: No significant abnormality. OTHER: Moderate-sized bilateral inguinal hernias containing fat. Procedure Note Provider, MD Rachael - 01/27/2021 EXAM DESCRIPTION: CT Abd/Pelvis WO IV Contrast REASON FOR STUDY: Abdominal pain in the left lower quadrant. Mass incolon. TECHNIQUE: CT scan of the abdomen and pelvis performed withoutintravenous and without oral contrast using helical scanning technique. Reconstructed coronal and sagittal MPR images reviewed. All images stored on PACS. Automated exposure control was used as a dose optimization technique forthis examination. COMPARISON: CT of the abdomen and pelvis dated 12/02/2016, 11/20/2016, 03/30/2016. FINDINGS: The sensitivity for detection of visceral lesions is diminished withoutthe use of intravenous contrast. LOWER CHEST: There are minimal areas of subsegmental atelectasis in thelung bases at the posterior costophrenic angles. The lower lungs are otherwise clear. No pleural effusion. No pneumothorax. Imaged portions of theheart are unremarkable. No pericardial effusion. LIVER: The liver appears mildly enlarged, but no focal hepatic lesion isseen on this noncontrast study. GALLBLADDER: Surgically absent. BILE DUCTS: No appreciable dilatation of the intrahepatic or extrahepatic ducts. SPLEEN: The spleen is enlarged, measuring approximately 16.9 cm in span.This is unchanged compared to the previous study. No focal splenic lesions are seen. PANCREAS: No identified cystic or solid masses. No significant calcifications. No adjacent inflammation or peripancreatic fluidcollections. Pancreatic duct not dilated. ADRENALS: Normal. KIDNEYS/URINARY TRACT: Kidneys are normal in size. No focal renalparenchymal lesions noted on this noncontrast study. There are several tiny nonobstructing stones in both kidneys, measuring up to 4 mm. There is no hydronephrosis in either kidney. Ureters are normal in caliber, andcontain no stones. The dome of the urinary bladder appears tethered to thesigmoid colon, best seen between images 133, and 137. Appearance of the urinary bladder is otherwise unremarkable, and there is no gas within the urinary bladder lumen to definitely suggest a colovesical fistula. This tetheringis unchanged compared to previous studies. GI: The stomach is normal in appearance. The small bowel demonstrate nosigns of obstruction or inflammation. The appendix is normal. There is amoderate amount of stool in the colon. Circumferential wall thickening is noted inthe distal descending colon, as well as more pronounced diffuse thickening ofthe proximal to mid segments of the sigmoid colon. Appearance of thesesegments is similar to previous studies, and no significant interval change is identified on this noncontrast examination. The dome of the urinarybladder is tethered to this segment, as described above. A background of mildcolonic diverticulosis is present. The distal sigmoid colon, and the rectum are unremarkable. No pneumatosis. PERITONEUM: No ascites or free air. RETROPERITONEUM: No mass or adenopathy. REPRODUCTIVE: The prostate is mildly enlarged. Seminal vesicles are unremarkable. VASCULATURE: No abdominal aortic aneurysm. MUSCULOSKELETAL: No significant abnormality. OTHER: Moderate-sized bilateral inguinal hernias containing fat. IMPRESSION: 1.Unchanged circumferential wall thickening of the distal descendingcolon, and more pronounced masslike circumferential wall thickening of theproximal to mid segments of the sigmoid colon. This is superimposed on abackground of colonic diverticulosis, and there is unchanged tethered appearance of the urinary bladder dome to the sigmoid colon. A neoplastic process isunlikely given the stability of this process since 2017. This is likely sequela ofa previous inflammatory or infectious process, including diverticulitis. No acute finding is noted at this level. Particularly, there is no evidenceof acute diverticulitis at this time. 2.Nonobstructing stones in both kidneys, measuring up to 4 mm. No hydronephrosis. No stones in the ureters or urinary bladder. 3.Mild hepatosplenomegaly. This is similar to previous studies, andremains nonspecific. 4.Other incidental findings as above. THIS IS AN ELECTRONICALLY VERIFIED FINAL REPORT 11/11/2018 8:30 PM - Electronically signed by Arnie Robert M.D. T: Report ID: [id number] Reading Location: [place] [id number] [EOD] us Shawanda Shane [employer] ROUSTAB[employer] IMG CT PROCEDURES Final Result documented in this encounter Visit Diagnoses Not on filedocumented in this encounter Care Teams Snout Puller Relationship Specialty Start Date End Date No, Physician PCP - General 09/15/17 03/16/19 documented as of this encounter
--- OUTSIDE RECORDS SUMMARY | 2024-09-10 04:11 | XMS_ITS | Encounter Summary ---
Author Organization [facility] Healthcare Address [address] [place] [address] Care Team Providers Care Sexton Helper Name Role Phone No, Physician Primary Care Provider [phone] Encounter Details Date Type Department Care Team (Late st Contact Info) Description 03/02/2018 1:37 PM CDT Hospital Encounter [facility] Bk Andrew MD [address] [facility] [address] [address] Dysuria Social History Tobacco Use Types Packs/Day Years Used Date Smoking Tobacco: Former Smokeless Tobacco: Never Alcohol Use Standard Drinks/Week Comments No 0 (1 standard drink = 0.6 oz pur e alcohol) Sex and Gender Information Value Date Recorded Sex Assigned at Not on file 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 COLLECTED: 2018-03-02 11:43:00 RN ?? REQ#: [id number] REQUESTING DR: Bk Andrew MD ?? SOURCE: URINE ?? SP DESC: CLEAN CATC --- PROCEDURE --- ?--- RESULT --- ?? CULTURE URINE ??(Final) ??- ??Performed at [facility] ?* NO GROWTH DAY 2 <1,000 CFU/ML - [facility] ? [address] [place] [address] ? [place] [address] ? John Mays MD Procedure Note 12/03/2018 Microbiology Specimen Report (Converted) SPECIMEN [id number] COLLECTED: 2018-03-02 11:43:00 RN REQ#:[id number] REQUESTING DR: Bk Andrew MD SOURCE: URINE SP DESC: CLEAN CATC --- PROCEDURE --- --- RESULT --- CULTURE URINE (Final) - Performed at [facility] * NO GROWTH DAY 2 <1,000 CFU/ML - [address] [address] John Mays MD Bk Andrew MD LAB BLOOD ORDERABLES Final Resul t [facility] HISTORICAL RESULTS documented in this encounter Visit Diagnoses Diagnosis Dysuria documented in this encounter Care Teams Sexton Helper Relationship Specialty Start Date End Date No, Physician PCP - General 09/15/17 03/16/19 documented as of this encounter
--- OUTSIDE RECORDS SUMMARY | 2024-09-10 04:11 | XMS_ITS | Encounter Summary ---
Author Organization [facility] Healthcare Address [address] [place] [address] Care Team Providers Care Counter Supervisor Name Role Phone No, Physician Primary Care Provider [phone] Reason for Visit * Reason Comments Med Refill Encounter Details Date Type Department Care Team ([facility] Contact Info) Description 04/22/2018 12:21 AM CDT - 04/22/2018 2:13 AM CDT Emergency [facility] Emergency Department [address] [place] [address] Jenaro Romero, [address] [place] [address] Encounter for medication refill (Primary Dx) Discharge Disposition: Discharge to home or self care Social History Tobacco Use Types Packs/Day Years Used Date Smoking Tobacco: Former Smokeless Tobacco: Never Alcohol Use Standard Drinks/Week Comments No 0 (1 standard drink = 0.6 oz pur e alcohol) Sex and Gender Information Value Date Recorded Sex Assigned at Not on file 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 Gender Identity Not on file Sexual Orientation Not on file documented as of this encounter Last Filed Vital Signs Vital Sign Reading Time Taken Comments Blood Pressure 166/91 04/22/2018 12:38 AM CDT Pulse 74 04/22/2018 12:38 AM CDT Temperature 36.9 ??C (98.5 ??F) 04/22/2018 12:38 AM C DT Respiratory Rate 18 04/22/2018 12:38 AM CDT Oxygen Saturation 100% 04/22/2018 12:38 AM CDT Inhaled Oxygen Concentration - - Weight 108.9 kg (240 lb) 04/22/2018 12:38 AM CDT Height 188 cm (6' 2 ) 04/22/2018 12:38 AM CDT Body Mass Index 30.81 04/22/2018 12:38 AM CDT documented in this encounter Discharge Instructions * Attachments The following attachments cannot be sent through Care Everywhere. * Medicine Refill (AfterCare(R) Instructions(ER/ED)) (Lithuanian) * Benzodiazepine Withdrawal (Lithuanian) documented in this encounter Medications at Time [...] 40 mg by mouth daily. 02/25/2017 1 diazePAM (VALIUM) 5 mg tablet Take 1 [...] Refills Last Filled Start Date End Date diazePAM (VALIUM) 5 mg tablet Take 1 tablet (5 mg total) by mouth every 12 (twelve) hours as needed for anxiety. 3 tablet 04/22/2018 10/17/2020 documented in this encounter Discharge Disposition Disposition Code Departure Means Destination Discharge to home or self halfway documented in this encounter ED Notes * Jenaro Romero, - 04/22/2018 2:13 AM CDT HPI Chief Complaint Patient presents with ??? Med Refill A 48-year-old male presents to the emergency department requesting a medication refill of Xanax. Patient states he ran out of his Xanax prescription this morning. Patient reports that he takes 3 2 mgpills of Xanax per day. Patient states his last refill was March 24. Patient states he gets 120 pills filled per month. Patient states he has an appointment with a new psychiatrist on Wednesday. Patient states his last psychiatrist was trying to turn him into a drug addict , making conflicting reports, stating she was increasing my dose of Xanax , but also states she was trying to get him off ofXanax and that would take about a year. Patient denies having a PCP, because he got mad at me for radha redd to the emergency department for a spider bite . Patient denies any chest pain shortness of breath abdominal pain nausea vomiting diarrhea tremors or any other complaints at this time. History provided by: Patient Patient History Patient Active Problem List Diagnosis Date Noted ??? Recurrent major depressive disorder, in partial remission ([facility]) 03/12/2017 ??? Anxiety 03/12/2017 ??? Obesity (BMI 30-39.9) 03/12/2017 ??? Benzodiazepine dependence ([facility]) 03/12/2017 ??? Essential hypertension 03/12/2017 ??? Allergic rhinitis 03/12/2017 ??? Microcytic anemia 07/02/2015 ??? Type 2 diabetes mellitus without complication ([facility]) 08/28/2014 Past Medical History: Diagnosis Date ??? Anxiety ??? Arthritis ??? Asthma ??? Depression ??? Diabetes mellitus ([facility]) ??? Diverticulosis ??? Hypertension ??? PTSD (post-traumatic [...] tobacco: Never Used ??? Alcohol use No Social History Social History Narrative ??? No narrative on file Review of Systems Review of Systems Constitutional: Negative for chills and fever. HENT: Negative for ear pain and sore throat. Eyes: Negative for pain, redness and visual disturbance. Respiratory: Negative for cough, shortness of breath, wheezing and stridor. Cardiovascular: Negative for chest pain and palpitations. Gastrointestinal: Negative for abdominal pain, constipation, diarrhea, nausea and vomiting. Genitourinary: Negative for dysuria, flank pain and frequency. Musculoskeletal: Negative for arthralgias, neck pain and neck stiffness. Skin: Negative for rash and wound. Neurological: Negative for weakness, numbness and headaches. Psychiatric/Behavioral: Negative for behavioral problems, confusion, hallucinations and suicidal ideas. Physical Exam ED Triage Vitals [04/22/18 0038] Temp Pulse Resp BP SpO2 36.9 ??C (98.5 ??F) 74 18 166/91 100 % Temp src Heart Rate Source Patient Position BP Location FiO2 (%) Oral -- -- -- -- Physical Exam Constitutional: He is oriented to person, place, and time. He appears well- developed and well-nourished. HENT: Head: Normocephalic and atraumatic. Eyes: Pupils are equal, round, and reactive to light. Conjunctivae and EOM are normal. Neck: Neck supple. No tracheal deviation present. Cardiovascular: Normal rate, regular rhythm, normal heart sounds and intact distal pulses. Exam reveals no gallop and no friction rub. No murmur heard. Pulmonary/Chest: Effort normal and breath sounds normal. No stridor. No respiratory distress. He has no wheezes. He has no rales. Abdominal: Soft. Bowel sounds are normal. There is no tenderness. There is no rebound and no guarding. Musculoskeletal: Normal range of motion. He exhibits no edema or tenderness. Neurological: He is alert and oriented to person, place, and time. No sensory deficit. He exhibits normal muscle tone. Skin: Capillary refill takes less than 2 seconds. No rash noted. Psychiatric: His mood appears not anxious. His affect is blunt. He is slowed. He is not actively hallucinating. He does not exhibit a depressed mood. He expresses no homicidal and no suicidal ideation. He expresses no suicidal plans and no homicidal plans. Nursing note and vitals reviewed. MDM History inconsistent and suspicious for possible drug-seeking behavior. Patient advised to follow up with PCP and psychiatrist and return if worse in any way. MDM Encounter for medication refill Jenaro Romero DO 04/22/18 0322 * Isael Askew RN - 04/22/2018 12:29 AM CDT Patient arrives stating he ran out of Xanax prescription this morning. Reports that he takes 3 2mg pills PO daily. States he has an appt with a new psychiatrist on this coming Wednesday. documented in this encounter Plan of Treatment Scheduled Procedures Name Priority Associated Diagnoses Date/Ti me COLONOSCOPY Open Access Diverticulitis documented as of this encounter Visit Diagnoses Diagnosis Encounter for medication refill- Primary documented in this encounter Active and Recently Administered Medications Times are shown in CDT. Scheduled Medication Order 04/20/2018 04/21/2018 04/22/2018 LORazepam (ATIVAN) tablet 1 mg 1 mg, oral, Once, On Wed04/22/18 at 0140, For 1 dose 0205 (Not Given - Pr ovider: Yuridia Ortiz RN - Reason: Other - Comment: Pt drove himself to the ED. Not able to give med and let pt drive. aware and ok with plan.) documented in this encounter Orders Medications Ordered That Stevie ht Not Have Been Administered Count Last Ordered Date First Ordered Date LORazepam (ATIVAN) tablet 1 mg 1 04/22/2018 documented in this encounter Care Teams Counter Supervisor Relationship Specialty Start Date End Date No, Physician PCP - General 09/15/17 03/16/19 documented as of this encounter
--- OUTSIDE RECORDS SUMMARY | 2024-09-10 04:11 | XMS_ITS | Encounter Summary ---
Author Organization [facility] Address [address] [place] [address] Phone Care Team Providers Care Bail Bondsman Name Role Phone No, Physician Primary Care Provider [phone] Reason for Visit * Reason Onset Date Comments Appointment 08/23/2018 Encounter Details Date Type Department Care Team (Late st Contact Info) Description 08/23/2018 Documentation [facility] [id number] [place] [address] [address], [place] [address] Avelina Jacques CMA Appointment Social History Tobacco Use Types Packs/Day Years Used Date Smoking Tobacco: Former Smokeless Tobacco: Never Alcohol Use Standard Drinks/Week Comments No 0 (1 standard drink = 0.6 oz pur e alcohol) Sex and Gender Information Value Date Recorded Sex Assigned at Not on file 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 The numbers I tried calling are which was disconnected and was an incorrect phone number. I also called which is no longer in service. TIVE DEVELOPER documented in this encounter Plan of Treatment Scheduled Procedures Name Priority Associated Diagnoses Date/Ti me COLONOSCOPY Open Access Diverticulitis documented as of this encounter Visit Diagnoses Not on filedocumented in this encounter Care Teams Bail Bondsman Relationship Specialty Start Date End Date No, Physician PCP - General 09/15/17 03/16/19 documented as of this encounter
--- OUTSIDE RECORDS SUMMARY | 2024-09-10 04:11 | XMS_ITS | Encounter Summary ---
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
--- OUTSIDE RECORDS SUMMARY | 2024-09-10 04:12 | XMS_ITS | Encounter Summary ---
Author Organization [facility] Medical Group Address [address] [place] [address] Care Team Providers Care Probation Agent Name Role Phone Raza Gabriel MD Primary Care Provider [phone] Reason for Visit * Reason Onset Date Comments bx results from colonoscopy 07/08/2017 Encounter Details Date Type Department Care Team (Late st Contact Info) Description 07/08/2017 Telephone [facility] [address] [facility] [address] [place] [address] [place] D[place] [id number] [place] [address] [address] [place] [address] bx results from colonoscopy Social History Tobacco Use Types Packs/Day Years Used Date Smoking Tobacco: Former Alcohol Use Standard Drinks/Week Comments No 0 (1 standard drink = 0.6 oz pur e alcohol) Sex and Gender Information Value Date Recorded Sex Assigned at Not on file 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 Gender Identity Not on file Sexual Orientation Not on file documented as of this encounter Miscellaneous Notes * Telephone Encounter - Maine Orantes MA - 07/08/2017 10:01 AM CDT bob from the gi lab called and states that the the pt called them looking for his bx results Please call the pt with results documented in this encounter Plan of Treatment Scheduled Procedures Name Priority Associated Diagnoses Date/Ti me COLONOSCOPY Open Access Diverticulitis documented as of this encounter Visit Diagnoses Not on filedocumented in this encounter Care Teams Probation Agent Relationship Specialty Start Date End Date Raza Gabriel MD [address] [place] [id number] PCP - General 07/02/17 09/14/17 documented as of this encounter
--- OUTSIDE RECORDS SUMMARY | 2024-09-10 04:12 | XMS_ITS | Encounter Summary ---
Author Organization [facility] Healthcare Address [address] [place] [address] Care Team Providers Care Camera Operator Name Role Phone No, Physician Primary Care Provider [phone] Encounter Details Date Type Department Care Team (Late st Contact Info) Description 02/01/2017 7:16 AM CDT - 02/01/2017 8:36 AM CDT Emergency [facility] Emergency Department [address] [place] [address] John Shipman MD [address] [place] [address] Discharge Disposition: Discharge to home or self care Social History Tobacco Use Types Packs/Day Years Used Date Smoking Tobacco: Never Assessed Sex and Gender Information Value Date Recorded Sex Assigned at Not on file 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 07/17/2016 10/17/2020 documented as of this encounter Discharge Disposition Disposition Code Departure Means Destination Discharge to home or self care documented in this encounter Plan of Treatment Scheduled Procedures Name Priority Associated Diagnoses Date/Ti ks COLONOSCOPY Open Access Diverticulitis documented as of this encounter Visit Diagnoses Not on filedocumented in this encounter Care Teams Camera Operator Relationship Specialty Start Date End Date No, Physician PCP - General 12/29/16 03/03/17 documented as of this encounter
--- OUTSIDE RECORDS SUMMARY | 2024-09-10 04:12 | XMS_ITS | Encounter Summary ---
Author Organization [facility] Healthcare Address [address] [place] [address] Care Team Providers Care Manager Internal Name Role Phone David Booth MD Primary Care Provider Encounter Details Date Type Department Care Team (Late st Contact Info) Description 03/04/2017 12:31 AM CDT - 03/04/2017 1:19 AM CDT Emergency [facility] Emergency Department [address] [place] [address] Jenaro Romero [address] [place] [address] Discharge Disposition: Discharge to home or self care Social History Tobacco Use Types Packs/Day Years Used Date Smoking Tobacco: Never Assessed Sex and Gender Information Value Date Recorded Sex Assigned at Not on file 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 0 03/04/2017 09/15/2017 ALPRAZolam (XANAX) 2 mg tablet Take 2 mg by mouth 3 (three) times a day. 0 03/04/2017 03/12/2017 atenolol (TENORMIN) 100 mg tablet Take 100 mg by mouth daily. 0 02/21/2017 03/12/2017 citalopram (CeleXA) 40 mg tabletIndications :Recurrent major depressive disorder, in partial remission (HCC) Take 40 mg by mouth daily. 02/25/2017 10/17/2020 promethazine (PHENERGAN) 25 mg tablet Take [...] filedocumented in this encounter Care Teams Manager Internal Relationship Specialty Start Date End Date David Booth MD PCP - General Family Medicine 03/04/17 06/30/17 documented as of this encounter
--- OUTSIDE RECORDS SUMMARY | 2024-09-10 04:12 | XMS_ITS | Encounter Summary ---
Author Organization [facility] Healthcare Address [address] [place] [address] Care Team Providers Care Conveyor Loader Name Role Phone No, Physician Primary Care Provider [phone] Encounter Details Date Type Department Care Team (Late st Contact Info) Description 12/29/2016 6:15 AM CDT - 12/29/2016 7:28 AM CDT Emergency [facility] Emergency Department [address] [place] [address] Barbara Bustos MD [address] [place] [address] Discharge Disposition: Discharge to home or self care Social History Tobacco Use Types Packs/Day Years Used Date Smoking Tobacco: Never Assessed Sex and Gender Information Value Date Recorded Sex Assigned at Not on file 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
--- OUTSIDE RECORDS SUMMARY | 2024-09-10 04:12 | XMS_ITS | Encounter Summary ---
Author Organization [facility] Medical Group Address [address] [place] [address] Care Team Providers Care Metal Fabricator Welder Name Role Phone David Booth MD Primary Care Provider [phone] Reason for Visit * Reason Onset Date Comments elizabeth medical question 04/02/2017 Encounter Details Date Type Department Care Team (Late st Contact Info) Description 04/02/2017 Telephone [facility] at [facility] 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
--- OUTSIDE RECORDS SUMMARY | 2024-09-10 04:12 | XMS_ITS | Encounter Summary ---
Author Organization [facility] Medical Group Address [address] [place] [address] Care Team Providers Care Credit Risk Manager Name Role Phone David Booth MD Primary Care Provider Encounter Details Date Type Department Care Team (Late st Contact Info) Description 06/30/2017 Orders Only [facility] [address] [facility] [address] [place] [address] [place] [address] [facility] [address] [place] [address] Social History Tobacco Use Types Packs/Day Years Used Date Smoking Tobacco: Former Alcohol Use Standard Drinks/Week Comments No 0 (1 standard drink = 0.6 oz pur e alcohol) Sex and Gender Information Value Date Recorded Sex Assigned at Not on file 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 Gender Identity Not on file Sexual Orientation Not on file documented as of this encounter Ordered Prescriptions Prescription Sig Dispense Quantity Refills Last Filled Start Date End Date polyethylene glycol (GoLYTELY) 236-22.74-6.74 -5.86 gram solutionIndication s:Bowel Evacuation Mix Golytely with water and begin drinking at 4pm and finish all solution by midnight day before procedure 4000 mL 06/30/2017 7 bisacodyl EC (DULCOLAX EC) 5 mg EC tablet Take 4 tablets at 7pm day before procedure 4 tablet 06/30/2017 7 documented in this encounter Plan of Treatment Scheduled Procedures Name Priority Associated Diagnoses Date/Ti me COLONOSCOPY Open Access Diverticulitis documented as of this encounter Visit Diagnoses Not on filedocumented in this encounter Care Teams Credit Risk Manager Relationship Specialty Start Date End Date David Booth MD PCP - General Family Medicine 03/04/17 06/30/17 documented as of this encounter
--- OUTSIDE RECORDS SUMMARY | 2024-09-10 04:12 | XMS_ITS | Encounter Summary ---
Author Organization [facility] Address [address] [place] [address] Care Team Providers Care Outpatient Surgery Rn Name Role Phone David Booth MD Primary Care Provider [phone] Miscellaneous, Not In File Primary Care Provider Unavailable Raza Gabriel MD Primary Care Provider [phone] No, Physician Primary Care Provider Cata lCifton NP Primary Care Provider [phone] No, Physician Primary Care Provider Miscellaneous, Not In File Primary Care Provider Unavailable Jagdeep Sanford DO Primary Care Provider [phone] Miscellaneous, Not In File Unavailable Unava ilable Charanjit Sheffield MD Primary Care Provider [phone] Reason for Visit * Reason Onset Date Comments Anxiety 04/01/2017 Encounter Details Date Type Department Care Team (Late st Contact Info) Description 04/01/[address] 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 No / Unsure 11/28/2019 10:38 PM CDT documented as of this encounter Miscellaneous Notes * Telephone Encounter - Priscila Miller LPN - 04/02/2017 1:42 PM CDT Spoke w/ pt to advise Dr. 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 * Telephone Encounter - Beckie Hamilton RN - 04/02/2017 9:46 AM CDT Spoke with back office to address pt concerns Will send high priority * Telephone Encounter - Beckie Hamilton RN - 04/02/2017 9:42 AM CDT Regarding: Psychiatric concerns ----- Message from Saida Barger sent at 04/02/2017 9:41 AM CDT ----- Patient called back stating he was suppose to get a phone call back from Beckie. * Telephone Encounter - Beckie Hamilton RN - 04/01/2017 5:17 PM CDT c/o depression and increasing anxiety reports sx have been ongoing since last week - verbalized that he noted sx after taking meds for diverticuli when he noted sx getting worse - states that he is not currently taking any meds for anxiety - has seen psychiatry clinic some weeks ago but reports they did nothing for him states being on medications help with sx but has not been able to be approved by PCP - describes anxiety as worsening - Denies chest pain or being harmful to self or others - Pt also c/o nausea - requesting possible refill Advised pt antianxiety med cannot be refilled Advised appt /ED - pt declined both RN to consult with on Dr. Miles - recommended UC/ED for eval - Informed pt of recommendation and was instructed that I would follow up with PCP on tomorrow Pt wanting call back tomorrow ACTION REQUIRED: please call to advise pt on sx Reason for Disposition ??? Patient sounds very sick or weak to the triager Answer Assessment - Initial Assessment Questions 1. CONCERN: What happened that made you call today? Anxiety 2. ANXIETY SYMPTOM SCREENING: Can you describe how you have been feeling? (e.g., tense, restless,panicky, anxious, keyed up, trouble sleeping, trouble concentrating) Sleeping a lot, trouble concentrating 3. ONSET: How long have you been feeling this way? Lat week 4. RECURRENT: Have you felt this way before? If yes: What happened that time? What helped these feelings go away in the past? Yes 5. RISK OF HARM - SUICIDAL IDEATION: Do you ever have thoughts of hurting or killing yourself? (e.g., yes, no, no but preoccupation with thoughts about ) - INTENT: Do you have thoughts of hurting or killing yourself right NOW? (e.g., yes, no, N/A) - PLAN: Do you have a specific plan for how you would do this? (e.g., gun, knife, overdose, no plan, N/A) No 6. RISK OF HARM - HOMICIDAL IDEATION: Do you ever have thoughts of hurting or killing someone else? (e.g., yes, no, no but preoccupation with thoughts about ) - INTENT: Do you have thoughts of hurting or killing someone right NOW? (e.g., yes, no, N/A) - PLAN: Do you have a specific plan for how you would do this? (e.g., gun, knife, no plan, N/A) Denies 7. FUNCTIONAL IMPAIRMENT: How have things been going for you overall in your life? Have you had any more difficulties than usual doing your normal daily activities? (e.g., better, same, worse; self-care, school, work, interactions) work 8. SUPPORT: Who is with you now? Who do you live with? Do you have family or friends nearby who you can talk to? Not at the time 9. THERAPIST: Do you have a counselor or therapist? Name? Clinic psychiat[facility] 03/25 10. STRESSORS: Has there been any new stress or recent changes in your life? Denies 11. CAFFEINE ABUSE: Do you drink caffeinated beverages, and how much each day? (e.g., coffee, tea, alexus) Denies 12. SUBSTANCE ABUSE: Do you use any illegal drugs or alcohol? Denies 13. OTHER SYMPTOMS: Do you have any other physical symptoms right now? (e.g., chest pain, palpitations, difficulty breathing, fever) Palpitations from anxiety 14. : Is there any chance you are ? When was your last menstrual period? Na Protocols used: ANXIETY AND PANIC [id number] * Telephone Encounter - Beckie Hamilton RN - 04/01/2017 5:16 PM CDT Regarding: Psychiatric concerns ----- Message from Taryn Michelle sent at 04/01/2017 5:00 PM CDT ----- He states he was supposed to have an appt to see a Psychiatrist, but when he arrived it was a PA and the whole thing was just a big joke . Was wondering if Dr. Booth could assist him in scheduling with a Psychiatrist to treat his worsening depression. documented in this encounter Plan of Treatment Scheduled Procedures Name Priority Associated Diagnoses Date/Ti me COLONOSCOPY Open Access Diverticulitis documented as of this encounter Visit Diagnoses Not on filedocumented in this encounter Care Teams Outpatient Surgery Rn Relationship Specialty Start Date End Date David Booth MD PCP - General Family Medicine 03/04/17 06/30/17 Miscellaneous, Not In File PCP - General 07/01/1707/01 Raza Gabriel MD [address] [place] [id number] PCP - General 07/02/17 09/14/17 No, Physician PCP - General 09/15/17 03/16/19 Cata Clifton NP PCP - General 03/17/19 11/04/19 No, Physician PCP - General 11/05/19 11/11/19 Miscellaneous, Not In File PCP - General 11/12/19 0 Jagdeep Sanford DO [address] [place] [address] [id number] PCP - General Family Medicine 11/16/19 01/20/20 [place] [address] [place] [address] [id number] PCP - General 01/21/20 09/29/20 Miscellaneous, Not In File 11/16/19 documented as of this encounter
--- OUTSIDE RECORDS SUMMARY | 2024-09-10 04:12 | XMS_ITS | Encounter Summary ---
Author Organization [facility] Address [address] [place] [address] Care Team Providers Care Food General Manager Name Role Phone Daivd Booth MD Primary Care Provider [phone] Reason for Visit * Reason Comments Diabetes Patient here to timo spence with new PCP. Sinusitis Did not sleep much a t night due to headache last night. Encounter Details Date Type Department Care Team (Late st Contact Info) Description 03/12/2017 9:30 AM CDT Office Visit [facility] at [facility] [address] [place] [id number] David Booth MD [address] [place] [address] Recurrent major depressive disorder, in partial remission (CMS/HCC) (Primary Dx); Anxiety; Acute non-recurrent maxillary sinusitis; Benzodiazepine dependence (CMS/HCC); Essential hypertension; Non-seasonal allergic rhinitis, unspecified allergic rhinitis trigger Social History Tobacco Use Types Packs/Day Years Used Date Smoking Tobacco: Former Alcohol Use Standard Drinks/Week Comments No 0 (1 standard drink = 0.6 oz pur e alcohol) Sex and Gender Information Value Date Recorded Sex Assigned at Not on file 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 Gender Identity Not on file Sexual Orientation Not on file documented as of this encounter Last Filed Vital Signs Vital Sign Reading Time Taken Comments Blood Pressure 132/86 03/12/2017 10:07 AM CDT Pulse 60 03/12/2017 10:07 AM CDT Temperature - - Respiratory Rate - - Oxygen Saturation 98% 03/12/2017 10:07 AM CDT Inhaled Oxygen Concentration - - Weight 123.4 kg (272 lb) 03/12/2017 10:07 AM CDT Height 188 cm (6' 2 ) 03/12/2017 10:07 AM CDT Body Mass Index 34.92 03/12/2017 10:07 AM CDT documented in this encounter Ordered Prescriptions Prescription Sig Dispense Quantity Refills Last Filled Start Date End Date ALPRAZolam (XANAX) 2 mg tabletIndications: Anxiety,Benzodiaze pine dependence (HCC) Take 1 tablet (2 mg total) by mouth 2 (two) times a day as needed. 60 tablet 03/12/2017 8 cefdinir (OMNICEF) 300 mg capsuleIndications :Acute non-recurrent maxillary sinusitis Take 1 capsule (300 mg total) by mouth 2 (two) times a day. 20 capsule 03/12/2017 7 fluticasone (FLONASE) 50 mcg/actuation nasal sprayIndications:N on-seasonal allergic rhinitis, unspecified allergic rhinitis trigger Administer 2 sprays into each nostril daily. 1 spray 3 03/12/2017 1 atenolol (TENORMIN) 100 mg tabletIndications: Essential hypertension Take 1 tablet (100 mg total) by mouth daily. 30 tablet 3 03/12/2017 2 documented in this encounter Progress Notes * David Booth MD - 03/12/2017 9:30 AM CDT Subjective/Objective Patient ID: Carlos Mcgee is a 47 y.o. male. Chief Complaint Diabetes (Patient here to establish with new PCP.) and Sinusitis (Did not sleep much at night due to headache last night.) Patient comes to establish care. Patient stated has been diagnosed with depression for several years, also with anxiety. Taking citalopram and Klonopin. He has appointment scheduled with psychiatric in 3 weeks and wants refill of this medication until that. He denies suicidal ideation, admitted feeling mild depressed. He is havinganxiety on and off. He is taking Klonopin about 3 tablets a day. He has been taking this for several years. Patient stated his mother recently Patient also complained of left maxillary sinus pain and frontal pain for about 2 weeks. He is having nose discharge on and off. No fever. Diabetes Hypoglycemia symptoms include nervousness/anxiousness. Pertinent negatives for hypoglycemia includeno dizziness. Associated symptoms include fatigue. Pertinent negatives for diabetes include no chest pain. Sinusitis Associated symptoms include sinus pressure. Pertinent negatives include no coughing, ear pain, shortness of breath or sore throat. PMFSH:I have reviewed Past Medical History, Family History, Social history and Problem list for this encounter. Review of Systems Constitutional: Positive for fatigue. Negative for fever. HENT: Positive for sinus pressure. Negative for ear pain, rhinorrhea and sore throat. Eyes: Negative for pain and discharge. Respiratory: Negative for cough, shortness of breath and wheezing. Cardiovascular: Negative for chest pain and leg swelling. Gastrointestinal: Negative for abdominal pain and diarrhea. Endocrine: Negative for cold intolerance and heat intolerance. Genitourinary: Negative for difficulty urinating, hematuria and urgency. Musculoskeletal: Negative for arthralgias and back pain. Skin: Negative for rash and wound. Allergic/Immunologic: Negative for environmental allergies. Neurological: Negative for dizziness and syncope. Psychiatric/Behavioral: Positive for sleep disturbance. Negative for agitation and suicidal ideas. The patient is nervous/anxious. Physical Exam Assessment/Plan Diagnoses and all orders for this visit: 1. Recurrent major depressive disorder, in partial remission (CMS/HCC) (Primary) Comments: Refill of citalopram. We discussed go to ER developing suicidal ideation. Patient verbalized understanding. Scheduled to see psychiatric in the next 3 weeks. 2. Anxiety Comments: We discussed taper down progressively benzodiazepine. Prescription given for Xanax 2 mg to take twice a day, #60 Further prescription by psychiatric Orders: - ALPRAZolam (XANAX) 2 mg tablet; Take 1 tablet (2 mg total) by mouth 2 (two) times a day as needed. 3. Acute non-recurrent maxillary sinusitis Comments: Instructed about sinus rinse. Prescription for Omnicef twice a day for 10 day Follow-up in 2 weeks Orders: - cefdinir (OMNICEF) 300 mg capsule; Take 1 capsule (300 mg total) by mouth 2 (two) times a day. 4. Benzodiazepine dependence (CMS/HCC) Comments: We discussed risks and benefits of benzodiazepine. Discussed decrease does progressively Patient is scheduled to follow up with psychiatric in 3 weeks Orders: - ALPRAZolam (XANAX) 2 mg tablet; Take 1 tablet (2 mg total) by mouth 2 (two) times a day as needed. 5. Essential hypertension - atenolol (TENORMIN) 100 mg tablet; Take 1 tablet (100 mg total) by mouth daily. 6. Non-seasonal allergic rhinitis, unspecified allergic rhinitis trigger - fluticasone (FLONASE) 50 mcg/actuation nasal spray; Administer 2 sprays into each nostril daily. documented in this encounter Plan of Treatment Scheduled Procedures Name Priority Associated Diagnoses Date/Ti al COLONOSCOPY Open Access Diverticulitis documented as of this encounter Visit Diagnoses Diagnosis Recurrent major depressive disorder, in partial remission (HCC)- Primary Anxiety Anxiety state, unspecified Acute non-recurrent maxillary sinusitis Benzodiazepine dependence (HCC) Sedative, hypnotic or anxiolytic dependence, unspecified abuse Essential hypertension Unspecified essential hypertension Non-seasonal allergic rhinitis, unspecified allergic rhinitis trigger documented in this encounter Discontinued Medications Medication Sig Discontinue Reason Start Date End Da te ALPRAZolam (XANAX) 2 mg tablet Take 2 mg by mouth 3 (three) times a day. 03/04/2017 03/12/2017 ALPRAZolam (XANAX) 2 mg tablet Take 1 tablet (2 mg total) by mouth 2 (two) times a day as needed. 03/12/2017 03/12/2017 atenolol (TENORMIN) 100 mg tablet Take 100 mg by mouth daily. Reorder 02/21/2017 03/12/2017 fluticasone (FLONASE) 50 mcg/actuation nasal spray Administer 2 sprays into affected nostril(s) daily. Reorder 03/12/2017 documented as of this encounter Historical Medications * This list may reflect changes made after this encounter. ibuprofen (ADVIL,MOTRIN) 600 mg tablet Take 1 tablet (600 mg total) by mouth every 6 hours 10/30/2016 meclizine (ANTIVERT) 25 mg tablet Take 1 tablet (25 mg total) by mouth every 12 hours ALPRAZolam (XANAX) 1 mg tablet Take 1 mg by mouth 2 (two) times a day. 0 03/04/2017 8 ALPRAZolam (XANAX) 2 mg tablet Take 1 tablet (2 mg total) by mouth 2 (two) times a day as needed. 60 tablet 03/12/2017 7 promethazine (PHENERGAN) 25 mg tablet Take 25 mg by mouth every 6 hours. 07/17/2016 1 raNITIdine (ZANTAC) 150 mg tablet Take 150 mg by mouth daily. 1 albuterol HFA (PROVENTIL HFA,VENTOLIN HFA) 90 mcg/actuation inhaler Inhale 2 puffs every 6 hours. 2 fluticasone (FLONASE) 50 mcg/actuation nasal spray Administer 2 sprays into affected nostril(s) daily. 7 omeprazole (PriLOSEC) 40 mg capsule Take 40 mg by mouth daily. 7 citalopram (CeleXA) 40 mg tabletIndication s:Recurrent major depressive disorder, in partial remission (HCC) Take 40 mg by mouth daily. 02/25/2017 1 atenolol (TENORMIN) 100 mg tablet Take 100 mg by mouth daily. 0 02/21/2017 7 ALPRAZolam (XANAX) 2 mg tablet Take 2 mg by mouth 3 (three) times a day. 0 03/04/2017 7 added in this encounter Care Teams Food General Manager Relationship Specialty Start Date End Date David Booth MD PCP - General Family Medicine 03/04/17 06/30/17 documented as of this encounter
--- OUTSIDE RECORDS SUMMARY | 2024-09-10 04:12 | XMS_ITS | Encounter Summary ---
Author Organization [facility] Address [address] [place] [address] Care Team Providers Care Hemodialysis Charge Nurse Name Role Phone David Booth MD Primary Care Provider [phone] Reason for Visit * Reason Onset Date Comments paient call 04/02/2017 re: medication r efill Encounter Details Date Type Department Care Team (Late st Contact Info) Description 04/02/2017 Documentation [facility] at [facility] [address] [place] [address] Gay Jones paimilagros call (re: medication refill ) Social History Tobacco Use Types Packs/Day Years Used Date Smoking Tobacco: Former Alcohol Use Standard Drinks/Week Comments No 0 (1 standard drink = 0.6 oz pur e alcohol) Sex and Gender Information Value Date Recorded Sex Assigned at Not on file 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 Perdomo will not refill his Xanax. Patient was told he needs to get his xanax from his psychiatrist. Patient states well what do I need him for and hung up on me. documented in this encounter Plan of Treatment Scheduled Procedures Name Priority Associated Diagnoses Date/Ti me COLONOSCOPY Open Access Diverticulitis documented as of this encounter Visit Diagnoses Not on filedocumented in this encounter Care Teams Hemodialysis Charge Nurse Relationship Specialty Start Date End Date David Booth MD PCP - General Family Medicine 03/04/17 06/30/17 documented as of this encounter
--- OUTSIDE RECORDS SUMMARY | 2024-09-10 04:12 | XMS_ITS | Encounter Summary ---
Author Organization [facility] Address [address] [place] [address] Care Team Providers Care Avionics Systems Integration Specialist Name Role Phone David Booth MD Primary Care Provider [phone] Reason for Visit * Reason Onset Date Comments emmy medical question 04/01/2017 Encounter Details Date Type Department Care Team (Late st Contact Info) Description 04/01/2017 Telephone [facility] at [facility] [address] [place] [address] David Booth MD [address] 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 Requesting an RX. * Telephone Encounter - Adin Sanabria - 04/01/2017 4:33 PM CDT Patient is asking for a prescription to help with depression. He states he will have to find another psychiatrist is would like a script to last until he can get in somewhere else. Please advise * Telephone Encounter - Maine Molina - 04/01/2017 4:24 PM CDT Patient called per the previously noted and requested to speak with Pat directly noting his call was lost and he was not done stating his concern and did not want it incorrect to provider. Warm transferred to backline with Naresh. * Telephone Encounter - Nessa Hamilton - 04/01/2017 4:08 PM CDT Patient calling back called dropped when speaking to nurse, states he did not hang up bad bookkeeper receptionist see tele comm from 04.01.17 @ 4:03 Patient requesting callback * Telephone Encounter - Zara Palumbo - 04/01/2017 4:03 PM CDT Spoke with patient and he was not seen by psychiatrist but by physician's regulatory assistant. He does not want to go back and he stated he is very depressed. He would like you to give him a refill on his alprazolam. Told him I would ask but that is not something you normally would do. Recommendations? * Telephone Encounter - Cynthia Carter - 04/01/2017 3:33 PM CDT Pt called and said the clinic he went to for his depression is not going to work for him, he would like to speak to Emmy Arguello's nurse, please advise documented in this encounter Plan of Treatment Scheduled Procedures Name Priority Associated Diagnoses Date/Ti me COLONOSCOPY Open Access Diverticulitis documented as of this encounter Visit Diagnoses Not on filedocumented in this encounter Care Teams Avionics Systems Integration Specialist Relationship Specialty Start Date End Date David Booth MD PCP - General Family Medicine 03/04/17 06/30/17 documented as of this encounter
--- OUTSIDE RECORDS SUMMARY | 2024-09-10 04:12 | XMS_ITS | Encounter Summary ---
Author Organization [facility] Healthcare Address [address] [place] [address] Care Team Providers Care Heel Seat Fitter Name Role Phone Miscellaneous, Not In File Primary Care Provider Unavailable No, Physician Primary Care Provider [phone] Encounter Details Date Type Department Care Team ([facility] st Contact Info) Description 12/11/2016 Orders Only [facility] [phone] Jenaro Romero DO [address] [address] Social History Tobacco Use Types Packs/Day Years Used Date Smoking Tobacco: Never Assessed Sex and Gender Information Value Date Recorded Sex Assigned at Not on file 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 Gender Identity Not on file Sexual Orientation Not on file documented as of this encounter Plan of Treatment Scheduled Procedures Name Priority Associated Diagnoses Date/Ti me COLONOSCOPY Open Access Diverticulitis documented as of this encounter Procedures Procedure Name Priority Date/Time Associated Diagnosis Comments URINALYSIS, MICROSCOPIC ONLY STAT 12/11/2016 1:08 AM CDT documented in this encounter Results * Urinalysis, microscopic (12/11/2016 1:08 AM CDT) RBC, ur Negative Negative /HPF [facility] WBC, ur Negative Negative [facility] Bacteria, ur Negative Negative [facility] Urine/Blood 12/11/2016 1:0 8 AM CDT 12/11/2016 1:12 AM CDT Jenaro Romero DO LAB URINE ORDERABLES Final R esult [facility] [address] Department [place] [address] documented in this encounter Visit Diagnoses Not on filedocumented in this encounter Care Teams Heel Seat Fitter Relationship Specialty Start Date End Date Miscellaneous, Not In File PCP - General 10/31/16 No, Physician PCP - General 12/29/16 03/03/17 documented as of this encounter
--- OUTSIDE RECORDS SUMMARY | 2024-09-10 04:12 | XMS_ITS | Encounter Summary ---
Author Organization [facility] Address [address] [place] [address] Care Team Providers Care Production Underwriter Name Role Phone Miscellaneous, Not In File Primary Care Provider Unavailable Encounter Details Date Type Department Care Team (Late st Contact Info) Description 12/10/2016 11:57 PM CDT - 12/11/2016 1:45 AM CDT Emergency [facility] Emergency Department [address] [place] [phone] Discharge Disposition: Discharge to home or self care Social History Tobacco Use Types Packs/Day Years Used Date Smoking Tobacco: Never Assessed Sex and Gender Information Value Date Recorded Sex Assigned at Not on file 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
--- OUTSIDE RECORDS SUMMARY | 2024-09-10 04:12 | XMS_ITS | Encounter Summary ---
Author Organization [facility] Healthcare Address [address] [place] [id number] Care Team Providers Care Twine Reeling Machine Operator Name Role Phone Miscellaneous, Not In File Primary Care Provider Unavailable Encounter Details Date Type Department Care Team (Late st Contact Info) Description 07/01/2017 6:35 AM CDT - 07/01/2017 11:46 AM CDT Hospital Encounter [facility] GI Lab [address] [place] [address] [place] [id number] 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 2 ALPRAZolam (XANAX) 1 mg tablet Take 1 mg by mouth 2 (two) times a day. 0 03/04/2017 8 ALPRAZolam (XANAX) 2 mg tabletIndications: Anxiety,Benzodiaze pine dependence (HCC) Take 1 tablet (2 mg total) by mouth 2 (two) times a day as needed. 60 tablet 03/12/2017 8 atenolol (TENORMIN) 100 mg tabletIndications: Essential hypertension Take 1 tablet (100 mg total) by mouth daily. 30 tablet 3 03/12/2017 2 bisacodyl EC (DULCOLAX EC) 5 mg EC tablet Take 4 tablets at 7pm day before procedure 4 tablet 06/30/2017 1 citalopram (CeleXA) 40 mg tabletIndications: Recurrent major depressive disorder, in partial remission (HCC) Take 40 mg by mouth daily. 02/25/2017 1 fluticasone (FLONASE) 50 mcg/actuation nasal sprayIndications:N [...] 10pm day before procedure 354 mL 06/25/2017 02/04/202 1 documented as of this encounter Discharge Disposition Disposition Code Departure Means Destination Discharge to home or self care documented in this encounter Plan of Treatment Scheduled Procedures Name Priority Associated Diagnoses Date/Ti me COLONOSCOPY Open Access Diverticulitis documented as of this encounter Procedures Procedure Name Priority Date/Time Associated Diagnosis Comments SURGICAL PATHOLOGY Routine 07/01/2017 2: 08 PM CDT GLUCOSE POC Routine 07/01/2017 7:50 AM CDT COLONOSCOPY REPORT 07/01/2017 DISCHARGE LABORATORY CUMULATIVE REPORT 07/01/2017 12:00 AM CDT SURGICAL PATHOLOGY 07/01/2017 12 :00 AM CDT documented in this encounter Results * Surgical pathology (07/01/2017 2:08 PM CDT) 07/01/2017 2:08 PM CDT 07/01/2017 2:08 PM CDT Narrative 07/02/2017 1:01 PM CDT [facility] Department of Pathology [address] [place] [address] Final Report ?Patient Name: CARLOS KELLY Address: [address] [place] [address] Service: Gastro ??[place], [place] ?? Location: GI Lab Taken: 07/01/2017 Gender: M Received 07/01/2017 : 1970 (Age: 47) Hospital #: [id number] Accessioned: 07/01/2017 ?? Patient Type: SDS Reported 07/02/2017 Physician(s): Dr. Val Dodd M.D. Dr. David Booth M.D. ?? Diagnosis: Large intestine, sigmoid colon, biopsy ? - Mucosal hemangioma - Active inflammation, nonspecific - Focally suggestive of an ulcerated tubular adenoma - No definitive evidence of high grade dysplasia or malignancy - See description ?? Puneet Cortez MD PhD ??Report Electronically Reviewed and Signed Out By ??Puneet Cortez MD PhD ??07/02/2017 13:01:03 Specimen(s) Received: A: Sigmoid colon Microscopic Description: Sections from the sigmoid colon biopsy specimen show multiple fragments of colonic mucosa with occasional mucosal blood vessels dilated with red blood cells. ??Occasional acute inflammatory cells and acute cryptitis is present consistent with an active inflammatory process/nonspecific active colitis. ??Focal changes are present that are suggestive of an ulcerated tubular adenoma. ??There is no evidence of malignancy. Intradepartmental consult: The case was shown as an intradepartmental QA. Clinical History: Abdominal pain in the left lower quadrant. Abnormal CT of the GI tract suggestive of sigmoid colon mass versus colitis Procedure: Colonoscopy Finding: Sigmoid colon - mass Gross Description: The container is labeled Vincmilagros J. Corpus and sigmoid colon . ??It is six, 1-2 mm soliman tissue fragments. ??All in one cassette. Insert ??Anabela Aguero R.N., P.A./Puneet Cortez MD PhD Complete report with images are only be viewable in the PDF report The performance characteristics of some immunohistochemical stains, fluorescence in-situ hybridization tests and immunophenotyping by flow cytometry cited in this report (if any) were determined by the Surgical Pathology Department at [facility] as part of an ongoing chief vendor quality program and in compliance with federally mandated regulations drawn from the Clinical Laboratory Improvement Act of 1988 (CLIA '88). ??Some of these tests rely on the use of analyte specific reagents and are subject to specific labeling requirements by the US Food and Drug Administration. ??Such diagnostic tests may only be performed in a facility that is certified by the Department of Health and Human Services as a high complexity laboratory under CLIA '88. The FDA has determined that such clearance or approval is not necessary. ??This test is used for clinical purposes. ??It should not be regarded as investigational or for research. ??Nevertheless, federal rules concerning the medical use of analyte specific reagents require that the following disclaimer be attached to the report: This test was developed and its performance characteristics determined by the Surgical Pathology Department [facility]. ??It has not been cleared or approved by the U. S. Food and Drug Administration. Val Dodd MD LAB PATHOLOGY ORDERABLE S Final Result * Glucose POC (07/01/2017 7:50 AM CDT) Glucose, POC 79 70 - 199 mg/dL VAL DEAN Blood specimen (specimen) 07/01/2017 7:50 AM CDT 07/01/2017 7:50 AM CDT Val Dodd MD POINT OF CARE TEST ORDE JULIANNA Final Result VAL [address] [address] Department [place] [address] * DISCHARGE LABORATORY CUMULATIVE REPORT (07/01/2017 12:00 AM CDT) Narrative 07/01/2017 12:00 AM CDT Ordered by an unspecified provider. Historical Provider LAB BLOOD ORDERABLES Laura l Result * SURGICAL PATHOLOGY (07/01/2017 12:00 AM CDT) Narrative 07/01/2017 12:00 AM CDT Ordered by an unspecified provider. Historical Provider LAB PATHOLOGY ORDERABLES Final Result * COLONOSCOPY REPORT (07/01/2017) Anatomical Region Laterality Modality Other Provider Scanning GI PROCEDURE ORDERABLES Edited Result - Final documented in this encounter Visit Diagnoses Not on filedocumented in this encounter Care Teams Twine Reeling Machine Operator Relationship Specialty Start Date End Date Miscellaneous, Not In File PCP - General 07/01/1707/01 documented as of this encounter
--- OUTSIDE RECORDS SUMMARY | 2024-09-10 04:12 | XMS_ITS | Encounter Summary ---
Author Organization [facility] Address [address] [place] [address] Care Team Providers Care Helper Chicken Farm Name Role Phone David Booth MD Primary Care Provider [phone]- [phone] Miscellaneous, Not In File Primary Care Provider Unavailable Reason for Visit * Reason Onset Date Comments Colonoscopy 06/25/2017 Encounter Details Date Type Department Care Team (Late st Contact Info) Description 06/25/2017 Telephone [facility] Special[facility] [address] [facility] [address] [place] [address] [place] [id number] [place] [address] [address] [place], [place] [id number] Colonoscopy Social History Tobacco Use Types Packs/Day Years Used Date Smoking Tobacco: Former Alcohol Use Standard Drinks/Week Comments No 0 (1 standard drink = 0.6 oz pur e alcohol) Sex and Gender Information Value Date Recorded Sex Assigned at Not on file 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 08-31-17. * Telephone Encounter - David Crespo MA - 06/30/2017 3:04 PM CDT Prep sent to [facility] for the patient * Telephone Encounter - Honey Posey - 06/30/2017 2:59 PM CDT Send the prep to [facility] pharmacy * Telephone Encounter - David Crespo MA - 06/30/2017 2:14 PM CDT suprep is too expensive for the patient and he is requesting Golytely and Dulcolax prep, I sent prep to [facility] pharmacy for the patient. * Telephone Encounter - Honey Posey - 06/30/2017 1:45 PM CDT Patient called stating the suprep is not covered. Will send Golytely transferred call to david to give instructions. * Telephone Encounter - Honey Posey - 06/30/2017 1:44 PM CDT Patient called stating that he is in a lot of pain and he is hurting patient wanted to know will you still be able to proceed with the colonoscopy best contact [phone] * Telephone Encounter - Danika Wilder - 06/25/2017 2:56 PM CDT Pt called office, he wanted to ask a question He is feeling gas with pressure in his colon area, sometimes burning, He is wondering if this is normal to feel with mass in colon He states it started around Wednesday Pt has never been seen by OO scheduled for colon 07/01 @7:30am per OO Best contact [phone] * Telephone Encounter - David Crespo MA - 06/25/2017 2:29 PM CDT Faxed order to gi lab, suprep sent to pharmacy * Telephone Encounter - David Crespo MA - 06/25/2017 2:26 PM CDT COLON Screening Questions: referring provider // Booth prev colon // sx's n/v; constipation; diarrhea; rectal bleed // no on coumadin, plavix, warfarin, ibuprofen, aspirin, aleve, iron/prescriber // no dm oral or insulin // Yes oral renal or kidney issues // no pharm // updated Provider // OO Date/time // 07-01-17 @ 7:30am Ordering: instructions given by who; in office or via phone // david, via phone, pt wrote down meds to stop // none Prep // suprep Authorization/referral // per Ellyn @ [facility] no precert required order created // yes paperwork ready for gi lab // yes BLOOD THINNER STOP CALL PRESCRIBER AND NOTIFY PT // no * Telephone Encounter - David Crespo MA - 06/25/2017 1:47 PM CDT I spoke with the patient and went over colonoscopy instructions, he is having rectal pain and is nauseated, he would like to know if there is anything he can do prior to having colonoscopy 07-01-17 for his sxs, thank you. * Telephone Encounter - Danika Wilder - 06/25/2017 1:26 PM CDT Pt scheduled colon 07/01/17 @7:30am with OO Gave records to david documented in this encounter Plan of Treatment Scheduled Procedures Name Priority Associated Diagnoses Date/Ti me COLONOSCOPY Open Access Diverticulitis documented as of this encounter Visit Diagnoses Not on filedocumented in this encounter Care Teams Helper Chicken Farm Relationship Specialty Start Date End Date David Booth MD PCP - General Family Medicine 03/04/17 06/30/17 Miscellaneous, Not In File PCP - General 07/01/1707/01 documented as of this encounter
--- OUTSIDE RECORDS SUMMARY | 2024-09-10 04:12 | XMS_ITS | Encounter Summary ---
Author Organization [facility] Address [address] [place] [address] Care Team Providers Care Capacitor Tester Name Role Phone David Booth MD Primary Care Provider [phone]- [phone] Encounter Details Date Type Department Care Team (Late st Contact Info) Description 03/15/[address] 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 14 tablet 03/15/2017 03/22/2017 documented in this encounter Miscellaneous Notes * Telephone Encounter - Zara Palumbo - 03/15/2017 4:54 PM CDT Patient was prescribed Keflex but he called back and stated he was allergic to it. Dr Booth had prescibed omnicef when he was here. Pharmacy states ok to take Cipro. Per Marli Omalley G[employer]PE[employer] SINGER send out RX for Cipro 500mg BID for 7 days. This was done. documented in this encounter Plan of Treatment Scheduled Procedures Name Priority Associated Diagnoses Date/Ti me COLONOSCOPY Open Access Diverticulitis documented as of this encounter Visit Diagnoses Not on filedocumented in this encounter Discontinued Medications Medication Sig Discontinue Reason Start Date End Da te cefdinir (OMNICEF) 300 mg capsuleIndications:Acute non-recurrent maxillary sinusitis Take 1 capsule (300 mg total) by mouth 2 (two) times a day. Allergic response 03/12/2017 03/15/2017 documented as of this encounter Care Teams Capacitor Tester Relationship Specialty Start Date End Date David Booth MD PCP - General Family Medicine 03/04/17 06/30/17 documented as of this encounter
--- OUTSIDE RECORDS SUMMARY | 2024-09-10 04:12 | XMS_ITS | Encounter Summary ---
Author Organization [facility] Healthcare Address [address] [place] [id number] Care Team Providers Care Vacuum Cleaner Repairer Name Role Phone Miscellaneous, Not In File Primary Care Provider Unavailable Encounter Details Date Type Department Care Team (Latest Contact Info) Description 11/20/2016 4:17 PM FINANCIAL OPERATIONS ANALYST - 11/20/2016 7:54 PM FINANCIAL OPERATIONS ANALYST Hospital Encounter [facility] Sarah Meza MD [address] [place] [address] Noninfective gastroenteritis and colitis; Disorder of skin or subcutaneous tissue; Calculus of kidney; Nicotine dependence, uncomplicated; Essential (primary) hypertension; Type 2 diabetes mellitus without complications ([facility]); Other long term care social worker (current) drug therapy Social History Tobacco Use Types Packs/Day Years Used Date Smoking Tobacco: Never Assessed Sex and Gender Information Value Date Recorded Sex Assigned at Not on file Legal Sex Male 1:40 AM FINANCIAL OPERATIONS ANALYST Gender Identity Not on file Sexual Orientation Not on file documented as of this encounter Last Filed Vital Signs Vital Sign Reading Time Taken Comments Blood Pressure 125/72 11/20/2016 4:20 PM FINANCIAL OPERATIONS ANALYST Pulse 75 11/20/2016 4:20 PM FINANCIAL OPERATIONS ANALYST Temperature 36.7 ??C (98.1 ??F) 11/20/2016 4:20 PM CS T Respiratory Rate - - Oxygen Saturation 96% 11/20/2016 4:20 PM FINANCIAL OPERATIONS ANALYST Inhaled Oxygen Concentration - - Weight 129 kg (284 lb 6.3 oz) 11/20/2016 4:20 PM FINANCIAL OPERATIONS ANALYST Height 188 cm (6' 2 ) 11/20/2016 4:20 PM FINANCIAL OPERATIONS ANALYST Body Mass Index 36.51 11/20/2016 4:20 PM FINANCIAL OPERATIONS ANALYST documented in this encounter Medications at Time of Discharge ibuprofen (ADVIL,MOTRIN) 600 mg tablet Take 1 tablet (600 mg total) by mouth every 6 hours 10/30/2016 promethazine (PHENERGAN) 25 mg tablet Take 25 mg by mouth every 6 hours. 07/17/2016 10/17/2020 documented as of this encounter Plan of Treatment Scheduled Procedures Name Priority Associated Diagnoses Date/Ti al COLONOSCOPY Open Access Diverticulitis documented as of this encounter Procedures Procedure Name Priority Date/Time Associated Diagnosis Comments URINALYSIS AND REFLEX TO MICROSCOPIC AND CULTURE Routine 11/20/2016 5:05 PM FINANCIAL OPERATIONS ANALYST HEMOGRAM WITH MANUAL DIFFERENTIAL Routine 11/20/2016 5:03 PM FINANCIAL OPERATIONS ANALYST SLIDE REVIEW - PATHOLOGIST Routine 11/20/2016 5:03 PM FINANCIAL OPERATIONS ANALYST COMPREHENSIVE METABOLIC PANEL Routine 11/20/2016 5:03 [address]ATIONS ANALYST [address] ABDOMEN PELVIS WO CONTRAST Routine 11/20/2016 12:00 AM FINANCIAL OPERATIONS ANALYST documented in this encounter Results * (ABNORMAL) Urinalysis reflex to microscopic and culture (11/20/2016 5:05 PM FINANCIAL OPERATIONS ANALYST) Ur Collection Type CLEAN CATCH 11/20/2016 5:25 PM Ning HISTORICAL RESULTS Ur Culture Indicated? C&S NOT INDICATED 11/20/2016 5:25 PM Ning HISTORICAL RESULTS Urine Color YELLOW YELLOW 11/20/2016 5:25 PM Ning HISTORICAL RESULTS Urine Clarity CLEAR CLEAR 11/20/2016 5:25 PM Ning HISTORICAL RESULTS Urine Glucose (UA) NORMAL NORMAL mg/dL 11/20/2016 5:25 PM Ning HISTORICAL RESULTS Urine Bilirubin NEGATIVE NEGATIVE mg/dl 11/20/2016 5:25 PM Ning HISTORICAL RESULTS Urine Ketones NEGATIVE NEGATIVE mg/dL 11/20/2016 5:25 PM Ning HISTORICAL RESULTS Ur Specific [place] 1.013 1.005 - 1.025 11/20/2016 5:25 PM Ning HISTORICAL RESULTS Urine Blood NEGATIVE NEGATIVE mg/dl 11/20/2016 5:25 PM Ning HISTORICAL RESULTS Urine pH 5.0 5.0 - 8.0 11/20/2016 5:25 PM FINANCIAL OPERATIONS ANALYST [facility] HISTORICAL RESULTS Urine Protein NEGATIVE NEGATIVE mg/dL 11/20/2016 5:25 PM FINANCIAL OPERATIONS ANALYST [facility] HISTORICAL RESULTS Urine Urobilinogen NORMAL NORMAL mg/dL 11/20/2016 5:25 PM FINANCIAL OPERATIONS ANALYST [facility] HISTORICAL RESULTS Urine Nitrite NEGATIVE NEGATIVE 11/20/2016 5:25 PM FINANCIAL OPERATIONS ANALYST [facility] HISTORICAL RESULTS Ur Leukocyte Esterase 25(H) NEGATIVE Arlen/ul 11/20/2016 5:25 PM FINANCIAL OPERATIONS ANALYST [facility] HISTORICAL RESULTS Ur Microscopic Review Indicated or Ordered 11/20/2016 5:25 PM FINANCIAL OPERATIONS ANALYST [facility] HISTORICAL RESULTS Urine RBC 1 0 - 2 /HPF 11/20/2016 5:25 PM FINANCIAL OPERATIONS ANALYST [facility] HISTORICAL RESULTS Urine WBC 1 0 - 2 /HPF Urine Mucus Mod /LPF 11/20/2016 5:25 PM FINANCIAL OPERATIONS ANALYST [facility] HISTORICAL RESULTS Ur Squamous Epith Cells Rare /LPF 11/20/2016 5:25 PM FINANCIAL OPERATIONS ANALYST [facility] HISTORICAL RESULTS Hyaline Casts 5 0 - 2 /LPF 11/20/2016 5:05 PM FINANCIAL OPERATIONS ANALYST 11/20/2016 5:12 PM FINANCIAL OPERATIONS ANALYST Narrative [facility] HISTORICAL RESULTS - 11/20/2016 5:25 PM FINANCIAL OPERATIONS ANALYST Indication(s) for ordering ? Other - enter in comments ?? Babak [facility] MICROBIOLOGY - GENERAL ORDE JULIANNA Final Result [facility] HISTORICAL RESULTS * Slide review - pathologist (11/20/2016 5:03 PM FINANCIAL OPERATIONS ANALYST) Diff Slide Review SLIDE REVIEW 11/20/2016 5:25 PM FINANCIAL OPERATIONS ANALYST [facility] HISTORICAL RESULTS Comment:Pathologist Review o f Peripheral Blood Smear Hem Pathologist Commnt Comment:Agree with different ial/morphology. Path Cons Sign Path Pathologist 11/23/2016 1:[address] [facility] HISTORICAL RESULTS Comment:Reviewed by Nakul pitt M.D. 11/20/2016 5:03 PM FINANCIAL OPERATIONS ANALYST 11/20/2016 5:11 PM FINANCIAL OPERATIONS ANALYST us Babak [facility] BLOOD ORDERABLES Final Resu lt [facility] HISTORICAL RESULTS * (ABNORMAL) Hemogram with manual differential (11/20/2016 5:03 PM FINANCIAL OPERATIONS ANALYST) WBC 6.5 4.6 - 10.2 x10 3/ul 11/20/2016 5:24 PM FINANCIAL OPERATIONS ANALYST [facility] HISTORICAL RESULTS RBC 6.04(H) 4.11 - 5.71 x10 6/ul 11/20/2016 5:24 PM FINANCIAL OPERATIONS ANALYST [facility] HISTORICAL RESULTS Hemoglobin 11.9(L) 13.0 - 17.0 g/dl 11/20/2016 5:24 PM FINANCIAL OPERATIONS ANALYST [facility] HISTORICAL RESULTS Hct 40.0 38.2 - 48.5 % MCV 66.2(L) 80.0 - 97.0 fl 11/20/2016 5:24 PM FINANCIAL OPERATIONS ANALYST [facility] HISTORICAL RESULTS MCH 19.7(L) 27.0 - 31.2 pg 11/20/2016 5:24 PM FINANCIAL OPERATIONS ANALYST [facility] HISTORICAL RESULTS MCHC 29.8(L) 31.8 - 35.4 g/dl 11/20/2016 5:24 PM FINANCIAL OPERATIONS ANALYST [facility] HISTORICAL RESULTS RDW 18.9(H) 11.6 - 14.8 % Plt Count 233 124 - 400 x10 3/ul 11/20/2016 5:24 PM FINANCIAL OPERATIONS ANALYST [facility] HISTORICAL RESULTS MPV 9.1 7.4 - 10.4 fl MANUAL DIFF MANUAL DIFF --------- -- Comment:PATHOLOGIST'S COMMEN TS TO FOLLOW. Neutrophils % (Manual) 47 37 - 80 % 11/20/2016 6:34 PM FINANCIAL OPERATIONS ANALYST [facility] HISTORICAL RESULTS Lymphocytes % (Manual) 45 10 - 51 % Monocytes % (Manual) 4 0 - 12 % Eosinophils % (Manual) 2 0 - 7 % Basophils % (Manual) 2(H) 0 - 1 % ABSOLUTE COUNTS ABSOLUTE COUNTS --------- -- Abs Neuts cells/mm3 3055 /ul Absolute Neutrophils 3.1 1.7 - 8.7 x10 3/ul Absolute Lymphocytes 2.9 0.2 - 4.6 x10 3/ul Absolute Monocytes 0.3 0.1 - 1.5 x10 3/ul Absolute Eosinophils 0.1 0.0 - 0.7 x10 3/ul Absolute Basophils 0.1 0.0 - 0.2 x10 3/ul Platelet Evaluation AGREE AGREE Comment:Slide review of plat elets correlates with instrument count. Anisocytosis 1+ Microcytosis 1+ Macrocytosis 1+ Ovalocytes 1+ 11/20/2016 5:03 PM FINANCIAL OPERATIONS ANALYST 11/20/2016 5:11 PM FINANCIAL OPERATIONS ANALYST Narrative [facility] HISTORICAL RESULTS - 11/20/2016 6:34 PM FINANCIAL OPERATIONS ANALYST us Babak [facility] BLOOD ORDERABLES Final Resu lt [facility] HISTORICAL RESULTS * (ABNORMAL) Comprehensive metabolic panel (11/20/2016 5:03 PM FINANCIAL OPERATIONS ANALYST) Sodium 140 135 - 145 mmol/L Potassium 3.8 3.3 - 5.1 mmol/L Chloride 99 96 - 108 mmol/L Carbon Dioxide 28 22 - 32 mmol/L Anion Gap 13 7 - 16 Glucose 102(H) 70 - 100 mg/dL BUN 11 6 - 20 mg/dL Creatinine 1.2 0.5 - 1.3 mg/dL Comment: NOTE: Estimated GFR (Cockroft-Gault) will NOT be calculated unless patient Height and Weight were entered. Also, Kidney Disease Stage (GFR) and Estimated GFR (Cockroft-Gault) will NOT be calculated if Creatinine result is <0.2. Kidney Disease Stage 70 mL/MIN Comment: NOTE; ??The GFR is an [...] or on dialysis @ Est GFR (Cockcroft-G) 112 ml/MIN Comment: Estimated GFR(Cockroft-Gault)is used to calculate patient medication dosage Calcium 9.6 8.6 - 10.0 mg/dL 11/20/2016 5:39 PM [facility] HISTORICAL RESULTS Total Protein 7.9 6.4 - 8.3 g/dL Albumin 4.4 3.5 - 5.2 g/dL Globulin 3.5 2.3 - 3.5 gm/dL Albumin/Globulin Ratio 1.3 1.1 - 1.8 Total Bilirubin 1.9(H) 0.0 - 1.2 mg/dL AST 25 0 - 40 U/L ALT 22 0 - 41 U/L Alkaline Phosphatase 76 40 - 129 U/L 11/20/2016 5:03 PM FINANCIAL OPERATIONS ANALYST 11/20/2016 5:11 PM FINANCIAL OPERATIONS ANALYST us Babak [facility] BLOOD ORDERABLES Final Resu lt [facility] HISTORICAL RESULTS * CT Abdomen Pelvis WO Contrast (11/20/2016 12:00 AM FINANCIAL OPERATIONS ANALYST) Anatomical Region Laterality Modality Body N/A Computed Tomogra phy 11/20/2016 Impressions 11/23/2016 9:02 AM CDT 1. ??Colitis involving the descending and sigmoid colon, with more focal focal wall thickening of the sigmoid colon, which is evidence of focal colitis versus colonic malignancy and results in partial colonic obstruction. ?? 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 Surgical consultation and direct visualization is recommended. 2. ??Prominent subcentimeter mesenteric lymph nodes are nonspecific and may be reactive or metastatic. ??Attention on follow-up imaging. 3. ??Diffuse hepatic steatosis. 4. ??Bilateral non-obstructive renal calculi. Automated exposure control was used as a dose optimization technique for this examination. THIS IS AN ELECTRONICALLY VERIFIED REPORT 11/20/2016 5:40 PM: ??Miguel Lynne M.D. ?? Miguel Lynne M.D. AB: 05:40 PM 05:40 PM [facility] [EOD] Narrative 11/23/2016 9:02 AM CDT EXAMINATION: CT of the abdomen and pelvis without intravenous contrast. HISTORY: ??Left lower quadrant abdominal pain and nausea for 1 day. COMPARISON: ??CT from April 10, [address] from March 30, 2016. TECHNIQUE: Multiple axial CT images of the abdomen and pelvis were obtained without intravenous contrast. Coronal and sagittal reformatted images were generated and reviewed. FINDINGS: There is minimal left basilar subsegmental atelectasis. There is no pleural or pericardial effusion. The heart size is normal. Evaluation of the solid abdominal organs is suboptimal in the absence of intravenous contrast. Within this limitation, there is diffuse hepatic steatosis. ??There are no focal liver lesions visualized. ??The gallbladder is surgically absent. ??There is no intrahepatic or extrahepatic biliary ductal dilation. ??The spleen, pancreas, and bilateral adrenal glands are normal in appearance. The kidneys are symmetric in size. ??There are bilateral nonobstructive renal calculi. ??There are no suspicious renal parenchymal lesions on limited non-contrast evaluation. ??There is no hydronephrosis. The abdominal aorta is normal in course and caliber. There are multiple small mesenteric lymph nodes, none of which are pathologically enlarged by CT size criteria. The small bowel is normal in caliber. ??The appendix is normal. ??The ascending and transverse colon contains stool but are normal in caliber. ??The descending colon is distended. ??There is wall thickening and pericolonic fat stranding involving the distal descending colon and the sigmoid colon. ??There is more focal wall thickening in the sigmoid colon (axial image 125 of 186) and there is a tract extending from the sigmoid colon to the urinary bladder. ??There is also a loop of small bowel which abuts the sigmoid colon. ??There is colonic diverticulosis. There is no pelvic lymphadenopathy. The prostate gland is normal in appearance. There are no aggressive appearing lytic or sclerotic osseous lesions. There is mild multilevel degenerative change of the thoracolumbar spine. Procedure Note Provider, MD Rachael - 01/27/2021 EXAMINATION: CT of the abdomen and pelvis without intravenous contrast. HISTORY: Left lower quadrant abdominal pain and nausea for 1 day. COMPARISON: CT from April 10, [address] from March 30, 2016. TECHNIQUE: Multiple axial CT images of the abdomen and pelvis wereobtained without intravenous contrast. Coronal and sagittal reformatted images were generated and reviewed. FINDINGS: There is minimal left basilar subsegmental atelectasis. There isno pleural or pericardial effusion. The heart size is normal. Evaluation of the solid abdominal organs is suboptimal in the absence of intravenous contrast. Within this limitation, there is diffuse hepatic steatosis. There are no focal liver lesions visualized. The gallbladderis surgically absent. There is no intrahepatic or extrahepatic biliaryductal dilation. The spleen, pancreas, and bilateral adrenal glands are normalin appearance. The kidneys are symmetric in size. There are bilateral nonobstructiverenal calculi. There are no suspicious renal parenchymal lesions on limited non-contrast evaluation. There is no hydronephrosis. The abdominal aorta is normal in course and caliber. There are multiplesmall mesenteric lymph nodes, none of which are pathologically enlarged by CTsize criteria. The small bowel is normal in caliber. The appendix is normal. Theascending and transverse colon contains stool but are normal in caliber. Thedescending colon is distended. There is wall thickening and pericolonic fatstranding involving the distal descending colon and the sigmoid colon. There ismore focal wall thickening in the sigmoid colon (axial image 125 of 186) andthere is a tract extending from the sigmoid colon to the urinary bladder. Thereis also a loop of small bowel which abuts the sigmoid colon. There iscolonic diverticulosis. There is no pelvic lymphadenopathy. The prostate gland is normal inappearance. There are no aggressive appearing lytic or sclerotic osseous lesions.There is mild multilevel degenerative change of the thoracolumbar spine. IMPRESSION: 1. Colitis involving the descending and sigmoid colon, with more focalfocal wall thickening of the sigmoid colon, which is evidence of focal colitis versus colonic malignancy and results in partial colonic obstruction. 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 Surgical consultation and direct visualization is recommended. 2. Prominent subcentimeter mesenteric lymph nodes are nonspecific and maybe reactive or metastatic. Attention on follow-up imaging. 3. Diffuse hepatic steatosis. 4. Bilateral non-obstructive renal calculi. Automated exposure control was used as a dose optimization technique forthis examination. THIS IS AN ELECTRONICALLY VERIFIED REPORT 11/20/2016 5:40 PM: Miguel Lynne M.D. Miguel Lynne M.D. AB: 05:40 PM 05:40 PM [facility] [EOD] Babak [facility] [place] CT PROCEDURES Final Result documented in this encounter Visit Diagnoses Diagnosis Noninfective gastroenteritis and colitis Disorder of skin or subcutaneous tissue Calculus of kidney Nicotine dependence, uncomplicated Essential (primary) hypertension Unspecified essential hypertension Type 2 diabetes mellitus without complications (CMS/HCC) (HCC) Other m[facility]p (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 Care Teams Vacuum Cleaner Repairer Relationship Specialty Start Date End Date Miscellaneous, Not In File PCP - General 10/31/16 documented as of this encounter
--- OUTSIDE RECORDS SUMMARY | 2024-09-10 04:12 | XMS_ITS | Encounter Summary ---
Author Organization [facility] Healthcare Address [address] [place] [address] Care Team Providers Care Optometrist Assistant Name Role Phone David Booth MD Primary Care Provider Encounter Details Date Type Department Care Team (Late st Contact Info) Description 06/04/2017 11:24 PM CDT - 06/05/2017 2:03 AM CDT Emergency [facility] Emergency Department [address] [place] [phone] Candice Murray MD [address] [place] [address] [id number] Discharge Disposition: Discharge to home or self care Social History Tobacco Use Types Packs/Day Years Used Date Smoking Tobacco: Former Alcohol Use Standard Drinks/Week Comments No 0 (1 standard drink = 0.6 oz pur e alcohol) Sex and Gender Information Value Date Recorded Sex Assigned at Not on file Legal Sex Male 1:40 AM FRAME TABLE OPERATOR HELPER Gender Identity Not on file [...] mouth daily. 30 tablet 3 03/12/2017 2 citalopram (CeleXA) 40 mg tabletIndications: Recurrent major [...] mouth daily. 30 capsule 3 03/15/2017 1 promethazine (PHENERGAN) 25 mg tablet Take 25 mg by mouth every 6 hours. 07/17/2016 1 raNITIdine (ZANTAC) 150 mg tablet Take 150 mg by mouth daily. 1 documented as of this encounter Discharge Disposition Disposition Code Departure Means Destination Discharge to home or self care documented in this encounter Plan of Treatment Scheduled Procedures Name Priority Associated Diagnoses Date/Ti de COLONOSCOPY Open Access Diverticulitis documented as of this encounter Procedures Procedure Name Priority Date/Time Associated Diagnosis Comments EGFR STAT 06/05/2017 12:35 AM CDT DIFFERENTIAL AUTO STAT 06/05/2017 12: 35 AM CDT URINALYSIS AND REFLEX TO MICROSCOPIC AND CULTURE STAT 06/05/2017 12:35 AM CDT CBC WITH AUTO DIFFERENTIAL STAT 06/05/2017 12:35 AM CDT URINALYSIS, MICROSCOPIC ONLY STAT 06/05/2017 12:35 AM CDT LIPASE STAT 06/05/2017 12:35 AM CDT AMYLASE STAT 06/05/2017 12:35 AM CDT COMPREHENSIVE METABOLIC PANEL STAT 06/05/2017 12:35 AM CDT DISCHARGE LABORATORY CUMULATIVE REPORT 06/05/2017 12:00 AM CDT documented in this encounter Results * (ABNORMAL) Urinalysis, microscopic only (06/05/2017 12:35 AM CDT) Pathologist [facility] RBC, ur 0-4 Negative /HPF [facility] WBC, ur 3-5(A) 0 - 2 /HPF [facility] Bacteria, ur Trace Negative /HPF [facility] Epithelial cells, squamous, ur 0-4 Negative [facility] Urine 06/05/2017 12:3 5 AM CDT 06/05/2017 12:42 AM CDT Candice Wilks MD LAB URINE ORDERABLES F inal Result [facility] [address] Department of Laboratories [place], [place] [id number] * eGFR (06/05/2017 12:35 AM CDT) eGFR 81 mL/min/1.7 3 m2 [facility] Comment: Interpretive Data Reference Interval Normal ?>/= 90 mL/min/1.73m2 Mildly decreased* ? 60 - 89 mL/min/1.73m2 Mildly to moderately decreased ?45 - 59 mL/min/1.73m2 Moderately to severely decreased ??30 - 44 mL/min/1.73m2 Severely decreased ?15 - 29 mL/min/1.73m2 Kidney Failure ?< 15 ??mL/min/1.73m2 *Relative to young adult level If -Greek multiply value by 1.16. Estimated glomerular filtration rate is determined by the CKD-EPI equation recommended by the National Kidney Foundation (KDIGO 2012 Clinical Practice Guideline for the Evaluation and Management of Chronic Kidney Disease. Kidney Intnl Suppl Sep 2012;3:1). The CKD-EPI equation should not be used for patients with unstable renal function and has not been validated in children and those over 70. Current interpretive data was last reviewed 2016. Blood specimen (specimen) 06/05/2017 12:35 AM CDT 06/05/2017 12:41 AM CDT us Candice Wilks MD LAB BLOOD ORDERABLES F inal Result [facility] [address] [place] [address] * (ABNORMAL) Comprehensive metabolic panel (06/05/2017 12:35 AM CDT) Sodium 139 136 - 145 mmol/L [facility] Potassium, pl 3.7 3.5 - 5.1 mmol/L [facility] CO2 27 22 - 29 mmol/L [facility] BUN 8 8 - 25 mg/dL [facility] Glucose 100 70 - 199 mg/dL [facility] Comment: Glucose is assumed to be non-fasting. ?? Fasting Glucose normal ranges are: 0 days - 2 months: ? 40 mg/dL - 100 mg/dL 2 months - 999 years: ?70 mg/dL - 99 mg/dL Creatinine 1.1 0.7 - 1.3 mg/dL [facility] Calcium 9.9 8.6 - 10.3 mg/dL [facility] Chloride 98.8 98.0 - 107.0 mmol/L [facility] Albumin 4.9 3.6 - 5.0 g/dL [facility] AST 27 10 - 50 Units/L [facility] ALT 23 10 - 40 Units/L [facility] Alk phos 71 38 - 126 Units/L [facility] Bilirubin, total 1.6(H) 0.1 - 1.0 mg/dL [facility] Protein, pl 9.1(H) 6.5 - 8.5 g/dL [facility] Anion gap 13 5 - 15 mmol/L [facility] Blood specimen (specimen) 06/05/2017 12:35 AM CDT 06/05/2017 12:41 AM CDT Candice Wilks MD LAB BLOOD ORDERABLES F inal Result Performing Organization Address [facility] Co de Phone Number [address] [place] [address] * Lipase (06/05/2017 12:35 AM CDT) Lipase 38 13 - 60 Units/L [facility] Blood specimen (specimen) 06/05/2017 12:35 AM CDT 06/05/2017 12:41 AM CDT Candice Wilks MD LAB BLOOD ORDERABLES F inal Result Performing Organization Address [facility] de Phone Number [address] [place] [address] * Amylase (06/05/2017 12:35 AM CDT) Amylase 64 30 - 100 Units/L [facility] Blood specimen (specimen) 06/05/2017 12:35 AM CDT 06/05/2017 12:41 AM CDT Candice Wilks MD LAB BLOOD ORDERABLES F inal Result Performing Organization Address [facility] Co de Phone Number [facility] [address] [facility] [place] [address] * (ABNORMAL) Urinalysis reflex to microscopic and culture (06/05/2017 12:35 AM CDT) Color, ur Yellow Yellow [facility] Clarity, ur Clear Clear [facility] Specific gravity, ur <=1.005 1.010 - 1.030 [facility] pH, ur 6.0 5.0 - 9.0 [facility] Protein, ur ql Negative Negative [facility] Glucose, ur ql Negative Negative [facility] Ketones, ur Negative Negative [facility] Bilirubin, ur Negative Negative [facility] Blood, ur Negative Negative [facility] Urobilinogen, ur 0.2 mg/dL [facility] Nitrites, ur Negative Negative [facility] Leukocyte esterase, ur Trace(A) Negative [facility] Urine 06/05/2017 12:3 5 AM CDT 06/05/2017 12:42 AM CDT Narrative [facility] - 06/05/2017 12:55 AM CDT Urine reflex culture/sensitivity orders will generate a urine culture order ONLY when the WBC count on the urine microscopic exam is >10 WBCs per hpf. ??Urine reflex culture/sensitivity orders will generate a urine culture order ONLY when the WBC count on the urine microscopic exam is >10 WBCs per hpf. us Candice Wilks MD LAB MICROBIOLOGY - GEN ERAL ORDERABLES Final Result [facility] [address] [facility] Department [place] [address] * Differential, auto (06/05/2017 12:35 AM CDT) Neutrophil pct 69.4 % [facility] Imm gran pct 0.2 % [facility] Lymphocyte pct 23.9 % [facility] Monocyte pct 4.9 % [facility] Eosinophil pct 0.9 % [facility] Basophil pct 0.7 % [facility] Neutrophil abs 3.80 1.70 - 6.50 K/cumm [facility] Imm gran abs 0.01 0.00 - 0.10 K/cumm [facility] Lymphocyte abs 1.31 0.80 - 3.30 K/cumm [facility] Monocyte abs 0.27 0.20 - 0.80 K/cumm [facility] Eosinophil abs 0.05 0.00 - 0.50 K/cumm [facility] Basophil abs 0.04 0.00 - 0.10 K/cumm [facility] Blood specimen (specimen) 06/05/2017 12:35 AM CDT 06/05/2017 12:41 AM CDT us Candice Wilks MD LAB BLOOD ORDERABLES F inal Result [facility] [address] [facility] [place] [address] * (ABNORMAL) CBC with auto differential (06/05/2017 12:35 AM CDT) WBC 5.48 3.80 - 9.90 K/cumm [facility] PW RBC 6.26(H) 4.30 - 5.80 M/cumm [facility] PW Hgb 12.9(L) 13.0 - 17.5 g/dL [facility] PW Hct 42.7 38.9 - 50.3 % [facility] PW MCV 68.2(L) 81.3 - 96.4 fL [facility] PW MCH 20.6(L) 27.1 - 33.3 pg [facility] PW MCHC 30.2(L) 32.3 - 35.7 g/dL [facility] PW RDW CV 19.2(H) 11.1 - 14.9 % [facility] PW RDW SD 42.5 35.7 - 48.1 fL [facility] PW Plt 227 150 - 400 K/cumm [facility] PW MPV 9.3 9.1 - 12.3 fL [facility] PW Blood specimen (specimen) 06/05/2017 12:35 AM CDT 06/05/2017 12:41 AM CDT Candice Wilks MD LAB BLOOD ORDERABLES F inal Result [facility] [address] [facility] Department [place] [address] * DISCHARGE LABORATORY CUMULATIVE REPORT (06/05/2017 12:00 AM CDT) Narrative 06/05/2017 12:00 AM CDT Ordered by an unspecified provider. us Historical Provider LAB BLOOD ORDERABLES Laura l Result documented in this encounter Visit Diagnoses Not on filedocumented in this encounter Care Teams Optometrist Assistant Relationship Specialty Start Date End Date David Booth MD PCP - General Family Medicine 03/04/17 06/30/17 documented as of this encounter
--- OUTSIDE RECORDS SUMMARY | 2024-09-10 04:12 | XMS_ITS | Encounter Summary ---
Author Organization [facility] Address [address] [place] [address] Care Team Providers Care Network Contract Manager Name Role Phone David Booth MD Primary Care Provider [phone] Miscellaneous, Not In File Primary Care Provider Unavailable Raza Gabriel MD Primary Care Provider [phone] No, Physician Primary Care Provider [phone] Cata Clifton NP Primary Care Provider [phone] No, Physician Primary Care Provider [phone] Miscellaneous, Not In File Primary Care Provider Unavailable Jagdeep Sanford DO Primary Care Provider [phone] Miscellaneous, Not In File Unavailable Unava ilable Charanjit Sheffield MD Primary Care Provider [phone] Reason for Visit * Reason Onset Date Comments Abdominal Pain 03/19/2017 Encounter Details Date Type Department Care Team (Late st Contact Info) Description 03/19/2017 Nurse Triage [facility] Medical [facility] Patient Access [address] [place] [address] Isamar Thomas RN Social History Tobacco Use Types Packs/Day [...] on file 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 No / Unsure 11/28/2019 10:38 PM CDT documented as of this encounter Ordered Prescriptions Prescription Sig Dispense Quantity Refills Last Filled Start Date End Date hyoscyamine (LEVSIN) 0.125 mg SL tabletIndications: Urinary Incontinence Take 1 tablet (0.125 mg total) by mouth every 8 (eight) hours as needed for cramping. 20 tablet 03/19/2017 11/29/2020 metroNIDAZOLE (FLAGYL) 500 mg tablet Take 1 tablet (500 mg total) by mouth 2 (two) times a day for 10 days. 20 tablet 03/19/2017 03/29/2017 documented in this encounter Miscellaneous Notes * Telephone Encounter - Isamar Thomas RN - 03/19/2017 6:06 PM CDT Pt calling c/o abd pain, lower left side started yesterday gradual onset. Pt states he has had flare ups of diverticulitis since 2003 and knows that is what is causing pain now but did not call office today because he was sleeping. Feels warm but no temperature taken. Pt seen in office as new pt last Wednesday and put on Cipro for sinus infection. Pt reports he normally get put on cipro and flagyl for diverticulitisPt requests flagyl to be called out now since already taking cipro. Pain rated 4/10now, can get to 7/10. Pain seems to come and go. Also has been nauseated x2 days, no vomiting. Denies blood in stool, constipation, problems with urination. RN advised UC today or tomorrow per guideline, pt very adamant he knows his pain is diverticulitis and will not go to be seen anywhere, wants PCP called. Pt argumentative and stating why else did he hire Dr. Booth as his PCP if he cannot callout medication for him after hours. RN explained needs to be evaluated to r/o other possible causesfor abd pain. Pt refuses UC or Er. RN to call nutritional services host Dr. Du. Per Dr. Du telephone verbal order, ok flagyl 500mg BID x10 days. Levsin 0.125mg Q8 hours prn. #20. RN notified pt and advised to call back if worsens. Pt requesting now also promethazine, does not want zofran for nausea. Dr. Du refused request for promethazine. RN eRannette's medications to [facility] pharmacy per pt request. To call back if worsens/persists. Reason for Disposition ??? [1] MODERATE pain (e.g., interferes with normal activities) AND [2] pain comes and goes (cramps) AND [3] present > 24 hours (Exception: pain with Vomiting or Diarrhea - see that Guideline) Answer Assessment - Initial Assessment Questions 1. LOCATION: Where does it hurt? Lower abd left sided 2. RADIATION: Does the pain shoot anywhere else? (e.g., chest, back) No radiation 3. ONSET: When did the pain begin? (Minutes, hours or days ago) Started yesterday 4. SUDDEN: Gradual or sudden onset? Gradual onset 5. PATTERN Does the pain come and [...] the pain goes away completely between bouts) Comes and goes 6. SEVERITY: How bad is the pain? (e.g., Scale 1-10; mild, moderate, or severe) - MILD (1-3): doesn't interfere with normal activities, abdomen soft and not tender to touch - MODERATE (4-7): interferes with normal activities or awakens from sleep, tender to touch - SEVERE (8-10): excruciating pain, doubled over, unable to do any normal activities 7/10 when hits, right now 4/10 7. RECURRENT SYMPTOM: Have you ever had this type of abdominal pain before? If so, ask: When wasthe last time? and What happened that time? Has had diverticulitis sicne 2003, gets flare ups 8. CAUSE: What do you think is causing the abdominal pain? diverticulitis 9. RELIEVING/AGGRAVATING FACTORS: What makes it better or worse? (e.g., movement, antacids, bowelmovement) Nothing changes right now 10. OTHER SYMPTOMS: Has there been any vomiting, diarrhea, constipation, or urine problems? Nausea for 2 days, no vomiting Protocols used: ABDOMINAL PAIN - [id number] * Telephone Encounter - Isamar Thomas RN - 03/19/2017 5:57 PM CDT Regarding: Has diverticulitis, needs a script ----- Message from Keri Arthur sent at 03/19/2017 5:56 PM CDT ----- Has diverticulitis, needs a script documented in this encounter Plan of Treatment Scheduled Procedures Name Priority Associated Diagnoses Date/Ti me COLONOSCOPY Open Access Diverticulitis documented as of this encounter Visit Diagnoses Not on filedocumented in this encounter Care Teams Network Contract Manager Relationship Specialty Start Date End Date David Booth MD PCP - General Family Medicine 03/04/17 06/30/17 Miscellaneous, Not In File PCP - General 07/01/1707/01 Raza Gabriel MD [address] [place] [address] PCP - General 07/02/17 09/14/17 No, Physician PCP - General 09/15/17 03/16/19 Cata Clifton NP PCP - General 03/17/19 11/04/19 No, Physician PCP - General 11/05/19 11/11/19 Miscellaneous, Not In File PCP - General 11/12/19 0 Jagdeep Sanford DO [address] [place] [address] PCP - General Family Medicine 11/16/19 01/20/20 Charanjit Sheffield MD [address] [place] [address] PCP - General 01/21/20 09/29/20 Miscellaneous, Not In File 11/16/19 documented as of this encounter
--- OUTSIDE RECORDS SUMMARY | 2024-09-10 04:12 | XMS_ITS | Encounter Summary ---
Author Organization [facility] Address [address] [place] [address] Care Team Providers Care Motorcyles Final Inspector Name Role Phone Raza Gabriel MD Primary Care Provider [phone] Encounter Details Date Type Department Care Team (Late st Contact Info) Description 07/13/2017 [facility]phone [facility] [address] [place] [address] [place] [address] 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 Gender Identity Not on file Sexual Orientation Not on file documented as of this encounter Miscellaneous Notes * Telephone Encounter - Danika Wilder - 07/13/2017 9:10 AM CDT Pt requested copy of colon report be faxed to pcp att [place] or [place] Faxed via fax machine confirmation received documented in this encounter Plan of Treatment Scheduled Procedures Name Priority Associated Diagnoses Date/Ti me COLONOSCOPY Open Access Diverticulitis documented as of this encounter Visit Diagnoses Not on filedocumented in this encounter Care Teams Motorcyles Final Inspector Relationship Specialty Start Date End Date Raza Gabriel MD [address] [place] [address] PCP - General 07/02/17 09/14/17 documented as of this encounter
--- OUTSIDE RECORDS SUMMARY | 2024-09-10 04:12 | XMS_ITS | Encounter Summary ---
Author Organization [facility] Healthcare Address [address] [place] [address] Care Team Providers Care Tub Chucker Name Role Phone No, Physician Primary Care Provider [phone] Encounter Details Date Type Department Care Team (Latest Contact Info) Description 02/25/2017 11:55 AM CDT - 02/25/2017 1:45 PM CDT Hospital Encounter 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 Gender Identity Not on file Sexual Orientation Not on file documented as of this encounter Last Filed Vital Signs Vital Sign Reading Time Taken Comments Blood Pressure 125/80 02/25/2017 12:07 PM CDT Pulse 69 02/25/2017 12:07 PM CDT Temperature 36.7 ??C (98.1 ??F) 02/25/2017 12:07 PM C DT Respiratory Rate - - Oxygen Saturation 99% 02/25/2017 12:07 PM CDT Inhaled Oxygen Concentration - - Weight 106.6 kg (235 lb) 02/25/2017 12:07 PM CDT Height 188 cm (6' 2 ) 02/25/2017 12:07 PM CDT Body Mass Index 30.17 02/25/2017 12:07 PM CDT documented in this encounter Medications at Time of Discharge ibuprofen (ADVIL,MOTRIN) 600 mg tablet Take 1 tablet (600 mg total) by mouth every 6 hours 10/30/2016 atenolol (TENORMIN) 100 mg tablet Take 100 [...] Scheduled Procedures Name Priority Associated Diagnoses Date/Ti az COLONOSCOPY Open Access Diverticulitis documented as of this encounter Visit Diagnoses Diagnosis Encounter for issue of repeat prescription Headache Other specified disorders of nose and nasal sinuses Procedure not carried out because of patient's decision Surgical or other procedure not carried out because of patient's decision documented in this encounter Care Teams Tub Chucker Relationship Specialty Start Date End Date No, Physician PCP - General 12/29/16 03/03/17 documented as of this encounter
--- OUTSIDE RECORDS SUMMARY | 2024-09-10 04:12 | XMS_ITS | Encounter Summary ---
Author Organization [facility] Address [address] [place] [address] Care Team Providers Care Health And Wellness Sales Consultant Name Role Phone David Booth MD Primary Care Provider [phone] Encounter Details Date Type Department Care Team (Late st Contact Info) Description 06/30/2017 Orders Only [facility] [address] [place] [address] [place] [address] 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 Gender Identity Not on file Sexual Orientation Not on file documented as of this encounter Ordered Prescriptions Prescription Sig Dispense Quantity Refills Last Filled Start Date End Date bisacodyl EC (DULCOLAX EC) 5 mg EC tablet Take 4 tablets at 7pm day before procedure 4 tablet 06/30/2017 1 polyethylene glycol (GoLYTELY) 236-22.74-6.74 -5.86 gram solutionIndication s:Bowel Evacuation Mix Golytely with water and begin drinking at 4pm and finish all solution by midnight day before procedure 4000 mL 06/30/2017 1 documented in this encounter Plan of Treatment Scheduled Procedures Name Priority Associated Diagnoses Date/Ti me COLONOSCOPY Open Access Diverticulitis documented as of this encounter Visit Diagnoses Not on filedocumented in this encounter Discontinued Medications Medication Sig Discontinue Reason Start Date End Da te polyethylene glycol (GoLYTELY) 236-22.74-6.74 -5.86 gram solutionIndications:Girard el Evacuation Mix Golytely with water and begin drinking at 4pm and finish all solution by midnight day before procedure Reorder 06/30/2017 06/30/2017 bisacodyl EC (DULCOLAX EC) 5 mg EC tablet Take 4 tablets at 7pm day before procedure Reorder 06/30/2017 06/30/2017 documented as of this encounter Care Teams Health And Wellness Sales Consultant Relationship Specialty Start Date End Date David Booth MD PCP - General Family Medicine 03/04/17 06/30/17 documented as of this encounter
--- OUTSIDE RECORDS SUMMARY | 2024-09-10 04:12 | XMS_ITS | Encounter Summary ---
Author Organization [facility] Address [address] [place] [address] Care Team Providers Care Wool Broker Name Role Phone Raza Gabriel MD Primary Care Provider [phone] Encounter Details Date Type Department Care Team (Late st Contact Info) Description 07/02/2017 Telephone [facility] [place] [facility] [address] [place] [address] [place] [address] [address] [address] [place] [address] Social History Tobacco Use Types Packs/Day Years Used Date Smoking Tobacco: Former Alcohol Use Standard Drinks/Week Comments No 0 (1 standard drink = 0.6 oz pur e alcohol) Sex and Gender Information Value Date Recorded Sex Assigned at Not on file 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 Gender Identity Not on file Sexual Orientation Not on file documented as of this encounter Miscellaneous Notes * Telephone Encounter - AlbrightLevi - 07/02/2017 4:27 PM CDT So I received a call from Y[facility] at the [facility] and the pt refused to get off the phone and I told her that I would call the pt I called the patient and now he says that he isn't having any abdominal pain and declined to go to the ER I told the pt that [facility] would contact him regarding the results from the biopsy and basically he is talking about some urological issues and that he has a mass that is pressing on his bladder and he said that his Urologist told him that all was okay with him The patient became very verbally abusive and I told him that I was hanging up the phone and I then called [facility]ing at the [facility] to inform her of what was discussed with the patient * Telephone Encounter - Levi Albright - 07/02/2017 4:20 PM CDT Pt only seen by [facility] for a Colonoscopy on 07/01/17 and the pt called stating that he is having abdominal pain and per office protocol the pt was advised to call the exchange Ying from the exchange called stating that since yesterday the patient has called over 30times So per Dr Emmanuel I called the exchange and spoke to Ying and told her that the patient should go to the ER for the abdominal pain and she was on the other line with the patient and will advise the patient documented in this encounter Plan of Treatment Scheduled Procedures Name Priority Associated Diagnoses Date/Ti me COLONOSCOPY Open Access Diverticulitis documented as of this encounter Visit Diagnoses Not on filedocumented in this encounter Care Teams Wool Broker Relationship Specialty Start Date End Date Raza Gabriel MD [address] [place] [address] PCP - General 07/02/17 09/14/17 documented as of this encounter
--- OUTSIDE RECORDS SUMMARY | 2024-09-10 04:12 | XMS_ITS | Encounter Summary ---
Author Organization [facility] Healthcare Address [address] [place] [address] Care Team Providers Care Cabinet Assembler Name Role Phone Miscellaneous, Not In File Primary Care Provider Unavailable Encounter Details Date Type Department Care Team (Late st Contact Info) Description 10/31/2016 10:02 PM YARD LOADER OPERATOR - 10/31/2016 11:00 PM YARD LOADER OPERATOR Emergency [facility] Emergency Department [address] [place] [address] John Mckeon MD [address] [place] [address] Discharge Disposition: Discharge to home or self care Social History Tobacco Use Types Packs/Day Years Used Date Smoking Tobacco: Never Assessed Sex and Gender Information Value Date Recorded Sex Assigned at Not on file 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
--- OUTSIDE RECORDS SUMMARY | 2024-09-10 04:12 | XMS_ITS | Encounter Summary ---
Author Organization [facility] Healthcare Address [address] [place] [address] Care Team Providers Care A R Collections Rep Name Role Phone No, Physician Primary Care Provider [phone] Encounter Details Date Type Department Care Team (Latest Contact Info) Description 12/29/2016 4:25 AM CDT - 12/29/2016 5:03 AM CDT Hospital Encounter [facility] Corrina Biggs MD [address] [facility] [place] [address] Anxiety disorder; Encounter for issue of repeat prescription; Bipolar disorder ([facility]) Social History Tobacco Use Types Packs/Day Years Used Date Smoking Tobacco: Never Assessed Sex and Gender Information Value Date Recorded Sex Assigned at Not on file 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 Gender Identity Not on file Sexual Orientation Not on file documented as of this encounter Last Filed Vital Signs Vital Sign Reading Time Taken Comments Blood Pressure 166/105 12/29/2016 4:27 AM CDT Pulse 71 12/29/2016 4:27 AM CDT Temperature 36.4 ??C (97.5 ??F) 12/29/2016 4:27 AM CD T Respiratory Rate - - Oxygen Saturation 100% 12/29/2016 4:27 AM CDT Inhaled Oxygen Concentration - - Weight 111.1 kg (245 lb) 12/29/2016 4:27 AM CDT Height 188 cm (6' 2 ) 12/29/2016 4:27 AM CDT Body Mass Index 31.46 12/29/2016 4:27 AM CDT documented in this encounter Medications at Time of Discharge ibuprofen (ADVIL,MOTRIN) 600 mg tablet Take 1 tablet (600 mg total) by mouth every 6 hours 10/30/2016 promethazine (PHENERGAN) 25 mg tablet Take 25 mg by mouth every 6 hours. 07/17/2016 10/17/2020 documented as of this encounter Plan of Treatment Scheduled Procedures Name Priority Associated Diagnoses Date/Ti nd COLONOSCOPY Open Access Diverticulitis documented as of this encounter Visit Diagnoses Diagnosis Anxiety disorder Anxiety state, unspecified Encounter for issue of repeat prescription Bipolar disorder (HCC) Bipolar disorder, unspecified documented in this encounter Care Teams A R Collections Rep Relationship Specialty Start Date End Date No, Physician PCP - General 12/29/16 03/03/17 documented as of this encounter
--- OUTSIDE RECORDS SUMMARY | 2024-09-10 04:12 | XMS_ITS | Encounter Summary ---
Author Organization [facility] Address [address] [place] [address] Care Team Providers Care Gas Line Repairer Name Role Phone David Booth MD Primary Care Provider [phone] Reason for Visit * Reason Onset Date Comments Med Refill 04/29/2017 Encounter Details Date Type Department Care Team (Late st Contact Info) Description 04/29/[address] 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 Dr Booth will not refill medication. Patient can make an appt to discuss with Dr Booth. * Telephone Encounter - Lesia Baig RN - 04/29/2017 8:12 PM CDT Reason for Disposition ??? Caller requesting a NON-URGENT new prescription or refill and triager unable to refill per unitpolicy Answer Assessment - Initial Assessment Questions 1. SYMPTOMS: Do you have any symptoms? Anxiety 2. SEVERITY: If symptoms are present, ask Are they mild, moderate or severe? Severe Pt states that he had appt today with his Last Putter Away and was told he has Colon Cancer. He states he is very upset and needs his Xanax refilled. He states he is in between Psychiatrist. RN informed him that this medication refill was refused by Dr. Booth 04/02/17. Pt states that he did not call for refill and did not speak to anyone in the office. RN informed pt unable to refill Protocols used: MEDICATION QUESTION [id number] * Telephone Encounter - Lesia Baig RN - 04/29/2017 7:59 PM CDT Regarding: Having anxiety attacks ----- Message from Kandi Franco sent at 04/29/2017 7:52 PM CDT ----- Having anxiety attacks documented in this encounter Plan of Treatment Scheduled Procedures Name Priority Associated Diagnoses Date/Ti me COLONOSCOPY Open Access Diverticulitis documented as of this encounter Visit Diagnoses Not on filedocumented in this encounter Care Teams Gas Line Repairer Relationship Specialty Start Date End Date David Booth MD PCP - General Family Medicine 03/04/17 06/30/17 documented as of this encounter
--- OUTSIDE RECORDS SUMMARY | 2024-09-10 04:12 | XMS_ITS | Encounter Summary ---
Author Organization [facility] Address [address] [place] [address] Care Team Providers Care Activity Aide Name Role Phone Raza Gabriel MD Primary Care Provider [phone] Encounter Details Date Type Department Care Team (Late st Contact Info) Description 07/06/2017 Telephone [facility] [place] [place] [facility] [address] [place] [address] [place] [address] [address] [facility] [address] [place] [address] Social History Tobacco Use Types Packs/Day Years Used Date Smoking Tobacco: Former Alcohol Use Standard Drinks/Week Comments No 0 (1 standard drink = 0.6 oz pur e alcohol) Sex and Gender Information Value Date Recorded Sex Assigned at Not on file 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 I read the message verbatim * Telephone Encounter - Val Dodd MD - 07/08/2017 10:06 AM CDT I've talked to him and advised him to go Er.. Please give his path report is benign. He needs to follow up with the surgeon that I referred him to. * Telephone Encounter - Honey Posey - 07/06/2017 10:45 AM CDT Patient of [facility] Patient had a colonoscopy on 07/01/17, patient called stating that he is feeling sick, patient stated nausea,nervous,sweating,confusion. Patient stated that he feel like that gave him too much anesthesia. Patient stated he has not been his self Please advise what the patient should do? To Ju documented in this encounter Plan of Treatment Scheduled Procedures Name Priority Associated Diagnoses Date/Ti me COLONOSCOPY Open Access Diverticulitis documented as of this encounter Visit Diagnoses Not on filedocumented in this encounter Care Teams Activity Aide Relationship Specialty Start Date End Date Raza Gabriel MD [address] [place] [address] PCP - General 07/02/17 09/14/17 documented as of this encounter
--- OUTSIDE RECORDS SUMMARY | 2024-09-10 04:12 | XMS_ITS | Encounter Summary ---
Author Organization [facility] Healthcare Address [address] [place] [address] Care Team Providers Care Communication Signals Intelligence Name Role Phone Raza Gabriel MD Primary Care Provider [phone] Encounter Details Date Type Department Care Team (Late st Contact Info) Description 08/20/2017 2:40 PM BIOPHYSICS TEACHER - 08/20/2017 5:28 PM BIOPHYSICS TEACHER Hospital Encounter [facility], John Vila MD [address] [place] [address] Chronic sinusitis; Essential (primary) hypertension Social History Tobacco Use Types Packs/Day Years Used Date Smoking Tobacco: Former Alcohol Use Standard Drinks/Week Comments No 0 (1 standard drink = 0.6 oz pur e alcohol) Sex and Gender Information Value Date Recorded Sex Assigned at Not on file Legal Sex Male 1:40 AM BIOPHYSICS TEACHER Gender Identity Not on file Sexual Orientation Not on file documented as of this encounter Last Filed Vital Signs Vital Sign Reading Time Taken Comments Blood Pressure 151/92 08/20/2017 2:44 PM BIOPHYSICS TEACHER Pulse 75 08/20/2017 2:44 PM BIOPHYSICS TEACHER Temperature 36.6 ??C (97.8 ??F) 08/20/2017 2:44 PM CS T Respiratory Rate - - Oxygen Saturation 100% 08/20/2017 2:44 PM BIOPHYSICS TEACHER Inhaled Oxygen Concentration - - Weight 120.7 kg (266 lb 1.6 oz) 08/20/2017 2:44 PM BIOPHYSICS TEACHER Height 188 cm (6' 2 ) 08/20/2017 2:44 PM BIOPHYSICS TEACHER Body Mass Index 34.16 08/20/2017 2:44 PM BIOPHYSICS TEACHER documented in this encounter Medications at Time [...] Priority Date/Time Associated Diagnosis Comments XR CHEST PA LATERAL 2 VIEWS Routine 08/20/2017 2:48 PM BIOPHYSICS TEACHER documented in this encounter Results * XR Chest Pa Lateral 2 Views (08/20/2017 2:48 PM BIOPHYSICS TEACHER) Anatomical Region Laterality Modality Body, Chest N/A Radiographic Katarzyna ging 08/20/2017 2:48 PM BIOPHYSICS TEACHER Impressions 08/20/2017 3:54 PM BIOPHYSICS TEACHER ?? 1. ??No acute cardiopulmonary process. THIS IS AN ELECTRONICALLY VERIFIED REPORT 08/20/2017 3:51 PM: ??Masoud Tai D.O. ?? Masoud Tai D.O. BW:ochoa 03:51 PM 03:51 PM ELI [EOD] Narrative 08/20/2017 3:54 PM BIOPHYSICS TEACHER EXAMINATION: ??Chest X-ray 2 views. HISTORY: ??Cough. ??Sinus infection for 1 month. ??Productive cough with fever for 1 month. COMPARISON: ??12/14/2015 and 01/02/2015 FINDINGS: ??The cardiomediastinal silhouette is normal. ??There is no pulmonary vascular congestion. ??No consolidation, effusion, or pneumothorax is observed. No significant change Procedure Note Provider, MD Rachael - 01/27/2021 EXAMINATION: Chest X-ray 2 views. HISTORY: Cough. Sinus infection for 1 month. Productive cough withfever for 1 month. COMPARISON: 12/14/2015 and 01/02/2015 FINDINGS: The cardiomediastinal silhouette is normal. There is nopulmonary vascular congestion. No consolidation, effusion, or pneumothorax isobserved. No significant change IMPRESSION: 1. No acute cardiopulmonary process. THIS IS AN ELECTRONICALLY VERIFIED REPORT 08/20/2017 3:51 PM: Masoud Tai D.O. Masoud Tai D.O. BW:ochoa 03:51 PM 03:51 PM ELI [EOD] us Iris COLLIER IMG XR PROCEDURES Final Resul t documented in this encounter Visit Diagnoses Diagnosis Chronic sinusitis Unspecified sinusitis (chronic) Essential (primary) hypertension Unspecified essential hypertension documented in this encounter Care Teams Communication Signals Intelligence Relationship Specialty Start Date End Date Raza Gabriel MD [address] [place] [address] PCP - General 07/02/17 09/14/17 documented as of this encounter
--- OUTSIDE RECORDS SUMMARY | 2024-09-10 04:12 | XMS_ITS | Encounter Summary ---
Author Organization [facility] Healthcare Address [address] [place] [address] Care Team Providers Care Weather Clerk Name Role Phone Miscellaneous, Not In File Primary Care Provider Unavailable No, Physician Primary Care Provider [phone] Encounter Details Date Type Department Care Team (Late st Contact Info) Description 12/11/2016 Orders Only [facility] [phone] Heather Jenaro Eid, DO [address] [place] [address] Social History Tobacco Use Types Packs/Day Years Used Date Smoking Tobacco: Never Assessed Sex and Gender Information Value Date Recorded Sex Assigned at Not on file 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 Gender Identity Not on file Sexual Orientation Not on file documented as of this encounter Plan of Treatment Scheduled Procedures Name Priority Associated Diagnoses Date/Ti me COLONOSCOPY Open Access Diverticulitis documented as of this encounter Procedures Procedure Name Priority Date/Time Associated Diagnosis Comments URINALYSIS AND REFLEX TO MICROSCOPIC AND CULTURE STAT 12/11/2016 1:08 AM CDT documented in this encounter Results * (ABNORMAL) Urinalysis reflex to microscopic and culture (12/11/2016 1:08 AM CDT) Color, ur Yellow Yellow [facility] Clarity, ur Clear Clear [facility] Specific gravity, ur 1.010 1.010 - 1.030 [facility] pH, ur 6.0 5.0 - 9.0 [facility] Protein, ur ql Negative Negative [facility] Glucose, ur ql Negative Negative mg/dL [facility] Ketones, ur Negative Negative mg/dL [facility] Bilirubin, ur Negative Negative [facility] Blood, ur Trace(A) Negative [facility] Urobilinogen, ur 0.2 mg/dL [facility] Nitrites, ur Negative Negative [facility] Leukocyte esterase, ur Negative Negative [facility] Urine/Blood 12/11/2016 1:08 AM CDT 12/11/2016 1:12 AM CDT us Jenaro Romero DO LAB MICROBIOLOGY - GENERAL O RDERABLES Final Result Performing Organization Address City/State/[facility] Co de Phone Number [facility] [address] Department [place] [address] documented in this encounter Visit Diagnoses Not on filedocumented in this encounter Care Teams Weather Clerk Relationship Specialty Start Date End Date Miscellaneous, Not In File PCP - General 10/31/16 No, Physician PCP - General 12/29/16 03/03/17 documented as of this encounter
--- OUTSIDE RECORDS SUMMARY | 2024-09-10 04:12 | XMS_ITS | Encounter Summary ---
Author Organization [facility] Address [address] [place] [address] Care Team Providers Care Director Of Hotel Operations Name Role Phone Raza Gabriel MD Primary Care Provider [phone] Encounter Details Date Type Department Care Team (Late st Contact Info) Description 07/08/2017 Tele[place] [facility] [place] [facility] [facility] 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 Upon answering the call, pt stated that he was calling to get his colonoscopy results. Asked pt to hold as I read through his chart for results. Informed pt that he was given the results from Tb. Pt then proceeded to say that she is not a nurse and he wanted to have them delivered from a medical personal. Informed pt that Tb delivered message directly from OO and it is the same as I did. Pt then proceeded to to say that [facility]O wont return his calls and he has been avoidinghim for days. I asked pt what he needed help with. Carlos then reported that he went to the ER twice and they found nothing wrong with him but he is still having pain in urinal area, not feeling like himself, night sweats and body shaking. All of these things started after colonoscopy is what pt s tated. Pt then went on to talk about how the exchange was rude to him and kept hanging up on him, OO was yelling at him and that he has the right to take his care elsewhere if he will get treated like this all the time. Pt requested for OO to call him back to talk about his ER visits. Informed pt that ER/Hops FU are scheduled appts in the office. Pt refused to sched appt. Informed pt that OO doeswant him to FU with the surgeon that was recommended. Carlos stated that he had an appt with the surgeon on for consult but cxd appt to wait on colonoscopy results. Pt says that he may r/s thatappt. Pt then stated to just hang on to my records and he will be calling the office to let you know where to send them , then ended call. * Telephone Encounter - Honey Posey - 07/08/2017 9:58 AM CDT Notes Recorded by Val Dodd MD on 07/06/2017 at 5:10 PM CDT Inform the patient that colon biopsies were benign. I do recommend that he follows up with the surgeon. Spoke to patient, patient was notified Dr dodd message documented in this encounter Plan of Treatment Scheduled Procedures Name Priority Associated Diagnoses Date/Ti me COLONOSCOPY Open Access Diverticulitis documented as of this encounter Visit Diagnoses Not on filedocumented in this encounter Care Teams Director Of Hotel Operations Relationship Specialty Start Date End Date Raza Gabriel MD [address] [place] [address] PCP - General 07/02/17 09/14/17 documented as of this encounter
--- OUTSIDE RECORDS SUMMARY | 2024-09-10 04:12 | XMS_ITS | Encounter Summary ---
Author Organization [facility] Healthcare Address [address] [place] [address] Care Team Providers Care Risk Management Analyst Name Role Phone Miscellaneous, Not In File Primary Care Provider Unavailable Encounter Details Date Type Department Care Team (Latest Contact Info) Description 12/02/2016 4:45 PM CDT - 12/02/2016 7:39 PM CDT Hospital Encounter [facility] Isidro Jorge MD [address] [place] [address] Acute gastritis without bleeding; Homelessness; Essential (primary) hypertension; Type 2 diabetes mellitus without complications (CMS/HCC); Other long term care social worker (current) drug therapy Social History Tobacco Use Types Packs/Day Years Used Date Smoking Tobacco: Never Assessed Sex and Gender Information Value Date Recorded Sex Assigned at Not on file 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] Date/Time Associated Diagnosis Comments TROPONIN I Routine 12/02/2016 7:06 PM CDT URINALYSIS Routine 12/02/2016 5:34 PM CDT HEMOGRAM WITH MANUAL DIFFERENTIAL Routine 12/02/2016 5:18 PM CDT SLIDE REVIEW - PATHOLOGIST Routine 12/02/2016 5:18 PM CDT LIPASE Routine 12/02/2016 5:18 PM CDT COMPREHENSIVE METABOLIC PANEL Routine 12/02/2016 5:[address] ABDOMEN PELVIS WO CONTRAST Routine 12/02/2016 5:02 PM CDT documented in this encounter Results * Troponin I (12/02/2016 7:06 PM CDT) [facility] Troponin I < 0.300 0.000 - 0.300 ng/mL Comment: Reference using MARCK Chemiluminescence ? Negative: Repeat in 4-6 hours as indicated. 12/02/2016 7:06 PM CDT 12/02/2016 7:12 PM CDT us Isidro Tutu Rogers MD LAB BLOOD ORDERABLES Final Result [facility] HISTORICAL RESULTS * (ABNORMAL) Urinalysis (12/02/2016 5:34 PM CDT) Pathologist [facility] Ur Collection Type CLEAN CATCH Urine Color STRAW YELLOW Urine Clarity CLEAR CLEAR Urine Glucose (UA) NORMAL NORMAL mg/dL Urine Bilirubin NEGATIVE NEGATIVE mg/dl Urine Ketones NEGATIVE NEGATIVE mg/dL Ur Specific Warrens 1.002(L) 1.005 - 1.025 Urine Blood NEGATIVE NEGATIVE mg/dl Urine pH 6.0 5.0 - 8.0 Urine Protein NEGATIVE NEGATIVE mg/dL Urine Urobilinogen NORMAL NORMAL mg/dL Urine Nitrite NEGATIVE NEGATIVE Ur Leukocyte Esterase NEGATIVE NEGATIVE Arlen/ul Ur Microscopic Review Not Indicated 12/02/2016 5:34 PM CDT 12/02/2016 5:41 PM T us Lin Mak LAB URINE ORDERABLES Final Resul t [facility] HISTORICAL RESULTS * Slide review - pathologist (12/02/2016 5:18 PM CDT) Diff Slide Review SLIDE REVIEW Comment: Pathologist Review of Peripheral Blood Smear ?? Pathologist Review of Peripheral Blood Smear ?? Pathologist Review of Peripheral Blood Smear Hem Pathologist Commnt Comment:Agree with different ial/morphology. Path Cons Sign Path Pathologist Comment:Reviewed by Skylar Cooper M.D. 12/02/2016 5:18 PM CDT 12/02/2016 5:28 PM CDT us Lin Deena Aubree LAB BLOOD ORDERABLES Final Resul t [facility] HISTORICAL RESULTS * (ABNORMAL) Hemogram with manual differential (12/02/2016 5:18 PM CDT) WBC 7.3 4.6 - 10.2 x10 3/ul RBC 6.29(H) 4.11 - 5.71 x10 6/ul Hemoglobin 12.6(L) 13.0 - 17.0 g/dl Hct 42.5 38.2 - 48.5 % MCV 67.6(L) 80.0 - 97.0 fl MCH 20.0(L) 27.0 - 31.2 pg MCHC 29.6(L) 31.8 - 35.4 g/dl RDW 19.3(H) 11.6 - 14.8 % Plt Count 220 124 - 400 x10 3/ul MPV 8.8 7.4 - 10.4 fl MANUAL DIFF MANUAL DIFF -------- --- Comment:PATHOLOGIST'S COMMEN TS TO FOLLOW. Neutrophils % (Manual) 68 37 - 80 % Band Neutrophils % 2 0 - 9 % 2016 6:03 PM [facility] HISTORICAL RESULTS Lymphocytes % (Manual) 21 10 - 51 % Atypical Lymphs % 1 0 - 6 % 017 6:03 PM [facility] HISTORICAL RESULTS Monocytes % (Manual) 7 0 - 12 % 12/02/2016 6:03 PM [facility] Basophils % (Manual) 1 0 - 1 % ABSOLUTE COUNTS ABSOLUTE COUNTS -------- --- Abs Neuts cells/mm3 5110 /ul Absolute Neutrophils 5.0 1.7 - 8.7 x10 3/ul 12/02/2016 6:03 PM [facility] Absolute Band Neuts 0.1 0.0 - 0.3 x10 3/ul Absolute Lymphocytes 1.5 0.2 - 4.6 x10 3/ul ATYPICAL LYMPH ABS# 0.1 0 - 0.3 x10 3/ul 12/02/2016 6:03 PM [facility] H[facility]OR[facility] RESULTS Absolute Monocytes 0.5 0.1 - 1.5 x10 3/ul 12/02/2016 6:03 PM [facility]OR[facility] RESULTS Absolute Basophils 0.1 0.0 - 0.2 x10 3/ul Platelet Evaluation AGREE AGREE Comment:Slide review of plat elets correlates with instrument count. Microcytosis 2+ Poikilocytosis 1+ Ovalocytes 1+ Tear Drop Cells 1+ 7 6:03 PM CDT [facility] HISTORICAL RESULTS 12/02/2016 5:18 PM CDT 12/02/2016 5:28 PM CDT Narrative [facility] HISTORICAL RESULTS - 12/02/2016 6:03 PM CDT Lin M. Aubree LAB BLOOD ORDERABLES Final Resul t Performing Organization Address [facility] de Phone Number [facility] HISTORICAL RESULTS * Lipase (12/02/2016 5:18 PM CDT) Lipase 34 13 - 60 U/L 12/02/2016 5:18 PM CDT 12/02/2016 5:28 PM CDT [facility] Aubree LAB BLOOD ORDERABLES Final Resul t Performing Organization Address [facility] de Phone Number [facility] HISTORICAL RESULTS * (ABNORMAL) Comprehensive metabolic panel (12/02/2016 5:18 PM CDT) Sodium 140 135 - 145 mmol/L Potassium 3.6 3.3 - 5.1 mmol/L Chloride 98 96 - 108 mmol/L Carbon Dioxide 28 22 - 32 mmol/L Anion Gap 14 7 - 16 Glucose 102(H) 70 - 100 mg/dL BUN 6 6 - 20 mg/dL Creatinine 1.0 0.5 - 1.3 mg/dL Comment: NOTE: Estimated GFR (Cockroft-Gault) will NOT be calculated unless patient Height and Weight were entered. Also, Kidney Disease Stage (GFR) and Estimated GFR (Cockroft-Gault) will NOT be calculated if Creatinine result is <0.2. Kidney Disease Stage 86 mL/MIN Comment: NOTE; ??The GFR is an [...] or on dialysis @ Est GFR (Cockcroft-G) 123 ml/MIN Comment: Estimated GFR(Cockroft-Gault)is used to calculate patient medication dosage Calcium 9.9 8.6 - 10.0 mg/dL Total Protein 7.9 6.4 - 8.3 g/dL Albumin 4.4 3.5 - 5.2 g/dL Globulin 3.5 2.3 - 3.5 gm/dL Albumin/Globulin Ratio 1.3 1.1 - 1.8 Total Bilirubin 1.5(H) 0.0 - 1.2 mg/dL AST 28 0 - 40 U/L ALT 21 0 - 41 U/L Alkaline Phosphatase 65 40 - 129 U/L 12/02/2016 5:18 PM CDT 12/02/2016 5:28 PM CDT us Lin Mak LAB BLOOD ORDERABLES Final Resul t [facility] HISTORICAL RESULTS * CT Abdomen Pelvis WO Contrast (12/02/2016 5:02 PM CDT) Anatomical Region Laterality Modality Body N/A Computed Tomogra phy 12/02/2016 5:02 PM CDT Impressions 12/02/2016 5:43 PM CDT 1. ??Marked focal colonic wall thickening in the sigmoid colon. ??The bladder is tethered in this region, which puts the patient at risk for colovesical fistula, although there is no definite CT evidence of colovesical fistula at this time. There is mild dilatation of the colon just proximal to this area but no evidence of bowel obstruction. ??This remains concerning for malignancy, although chronic colitis remains in the differential. Recommend colonoscopy for further evaluation. 2. ??Moderate fat-containing bilateral inguinal hernias. 3. ??Nonobstructing stones in both kidneys. Above findings discussed with AMIRA Patino, by Dr. Soriano at 5:35 p.m. on 12/02/2016. Automated exposure control was used as a dose optimization technique for this examination. THIS IS AN ELECTRONICALLY VERIFIED REPORT 12/02/2016 5:40 PM: ??Tramaine Soriano M.D. ?? Tramaine Soriano M.D. CN:[email or web address] 05:40 PM 05:40 PM [facility] [EOD] Narrative 12/02/2016 5:43 PM CDT EXAMINATION: CT abdomen/pelvis without intravenous contrast HISTORY: Chronic colitis with multiple fistulas, now presenting with abdominal pain and nausea, onset 2 weeks ago COMPARISON: CT abdomen/pelvis 11/20/2016 TECHNIQUE: Computed tomographic images of the abdomen and pelvis were obtained without intravenous contrast according to standard protocol FINDINGS: Limited images of the lung bases do not demonstrate any focal consolidation or pleural effusion. The gallbladder is surgically absent. ??There there are tiny nonobstructing stones in both kidneys, measuring up to 2 mm on the right and 4 mm on the left. ??There is no hydronephrosis in either kidney. ??The liver, spleen, pancreas, and adrenal glands are normal on this noncontrast examination. ??The prostate is normal in size. There is no abdominal or pelvic lymphadenopathy or free fluid. ??The abdominal aorta is normal in caliber. Again noted is marked focal colonic wall thickening in the sigmoid colon, best visualized on image 122. ??The bladder is tethered in this region. ??There is mild dilatation of the colon just proximal to this. ??This remains concerning for malignancy. ??There is no evidence of bowel obstruction. ??There is no free intraperitoneal air. ??The appendix is visualized and is normal (axial images 98 through 113). There are moderate fat-containing bilateral inguinal hernias. Bone windows do not demonstrate any abnormal osseous lytic or blastic lesions. There is mild multilevel degenerative disc disease in the lumbar spine. Procedure Note Provider, MD Rachael - 01/27/2021 EXAMINATION: CT abdomen/pelvis without intravenous contrast HISTORY: Chronic colitis with multiple fistulas, now presenting withabdominal pain and nausea, onset 2 weeks ago COMPARISON: CT abdomen/pelvis 11/20/2016 TECHNIQUE: Computed tomographic images of the abdomen and pelvis wereobtained without intravenous contrast according to standard protocol FINDINGS: Limited images of the lung bases do not demonstrate any focalconsolidation or pleural effusion. The gallbladder is surgically absent. There there are tiny nonobstructing stones in both kidneys, measuring up to 2 mm on the right and 4 mm on the left. There is no hydronephrosis in either kidney. The liver, spleen, pancreas, and adrenal glands are normal on this noncontrast examination.The prostate is normal in size. There is no abdominal or pelviclymphadenopathy or free fluid. The abdominal aorta is normal in caliber. Again noted is marked focal colonic wall thickening in the sigmoid colon,best visualized on image 122. The bladder is tethered in this region. Thereis mild dilatation of the colon just proximal to this. This remainsconcerning for malignancy. There is no evidence of bowel obstruction. There is nofree intraperitoneal air. The appendix is visualized and is normal (axialimages 98 through 113). There are moderate fat-containing bilateral inguinalhernias. Bone windows do not demonstrate any abnormal osseous lytic or blasticlesions. There is mild multilevel degenerative disc disease in the lumbar spine. IMPRESSION: 1. Marked focal colonic wall thickening in the sigmoid colon. Thebladder is tethered in this region, which puts the patient at risk for colovesical fistula, although there is no definite CT evidence of colovesical fistulaat this time. There is mild dilatation of the colon just proximal to thisarea but no evidence of bowel obstruction. This remains concerning formalignancy, although chronic colitis remains in the differential. Recommendcolonoscopy for further evaluation. 2. Moderate fat-containing bilateral inguinal hernias. 3. Nonobstructing stones in both kidneys. Above findings discussed with AMIRA Patino, by Dr. Soriano at 5:35 p.m.on 12/02/2016. Automated exposure control was used as a dose optimization technique forthis examination. THIS IS AN ELECTRONICALLY VERIFIED REPORT 12/02/2016 5:40 PM: Tramaine Soriano M.D. Tramaine Soriano M.D. CN:[email or web address] 05:40 PM 05:40 PM [facility] [EOD] Lin Mak IMAllyn CT PROCEDURES Final Result documented in this encounter Visit Diagnoses Diagnosis Acute gastritis without bleeding Homelessness Lack of housing Essential (primary) hypertension Unspecified essential hypertension Type 2 diabetes mellitus without complications (CMS/HCC) (HCC) Other long term care social worker (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 Care Teams Risk Management Analyst Relationship Specialty Start Date End Date Miscellaneous, Not In File PCP - General 10/31/16 documented as of this encounter
--- OUTSIDE RECORDS SUMMARY | 2024-09-10 04:12 | XMS_ITS | Encounter Summary ---
Author Organization [facility] Address [address] [place] [address] Care Team Providers Care Manager Pharmaceutical Name Role Phone David Booth MD Primary Care Provider Encounter Details Date Type Department Care Team (Late st Contact Info) Description 06/25/2017 Orders Only [facility] [address] [address] [address] [address] [place] [address] [place] [address] [facility] [address] [place] [address] Colonic mass (Primary Dx) Social History Tobacco Use Types Packs/Day Years Used Date Smoking Tobacco: Former Alcohol Use Standard Drinks/Week Comments No 0 (1 standard drink = 0.6 oz pur e alcohol) Sex and Gender Information Value Date Recorded Sex Assigned at Not on file 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 Gender Identity Not on file Sexual Orientation Not on file documented as of this encounter Ordered Prescriptions Prescription Sig Dispense Quantity Refills Last Filled Start Date End Date sodium, potassium & mag sulfates (SUPREP BOWEL KIT) 17.5-3.13-1.6 gram recon solnIndications:Milad wel Evacuation Mix bottle of Suprep with water and drink at 4pm, repeat and drink at 10pm day before procedure 354 mL 06/25/2017 1 documented in this encounter Plan of Treatment Scheduled Procedures Name Priority Associated Diagnoses Date/Ti me COLONOSCOPY Open Access Diverticulitis documented as of this encounter Visit Diagnoses Diagnosis Colonic mass- Primary documented in this encounter Care Teams Manager Pharmaceutical Relationship Specialty Start Date End Date David Booth MD PCP - General Family Medicine 03/04/17 06/30/17 documented as of this encounter
--- OUTSIDE RECORDS SUMMARY | 2024-09-10 04:12 | XMS_ITS | Encounter Summary ---
Author Organization [facility] Healthcare Address [address] [place] [address] Care Team Providers Care Office Secretary Name Role Phone Raza Gabriel MD Primary Care Provider [phone] Reason for Visit * Reason Comments Anxiety Encounter Details Date Type Department Care Team ([facility] Contact Info) Description 08/30/2017 12:05 AM ARNP - 08/30/2017 3:35 AM ARNP Emergency [facility] Emergency Department [address] [place] [phone] Juan Luis Gilbert Jr., MD [address] [place] [address] Chest pain in adult (Primary Dx); History of anxiety disorder Discharge Disposition: Left Against Medical Advice Social History Tobacco Use Types Packs/Day Years Used Date Smoking Tobacco: Former Alcohol Use Standard Drinks/Week Comments No 0 (1 standard drink = 0.6 oz pur e alcohol) Sex and Gender Information Value Date Recorded Sex Assigned at Not on file Legal Sex Male 1:40 AM ARNP Gender Identity Not on file Sexual Orientation Not on file documented as of this encounter Last Filed Vital Signs Vital Sign Reading Time Taken Comments Blood Pressure 142/98 08/30/2017 2:57 AM ARNP Pulse 68 08/30/2017 2:57 AM ARNP Temperature - - Respiratory Rate 16 08/30/2017 2:57 AM ARNP Oxygen Saturation 98% 08/30/2017 2:45 AM ARNP Inhaled Oxygen Concentration - - Weight - - Height - - Body Mass Index - - documented in this encounter Discharge Instructions * Discharge Instructions* Juan Luis Gilbert Jr., MD - 08/30/2017 3:17 AM ARNP In [place], [place], follow up with Dr. Rocha, as directed for further management and prescription refills. In [place], follow up with Dr. John Bowen, [address], [place] [address], call , for an appointment. Follow up with Dr. Sorenson for further evaluation of your chest pain. Return to an ER immediately for return of chest pain, with or without shortness of breath, palpitations--racing pulse or skipped beats, nausea or vomiting, lightheadedness or weakness. Take Lexapro and Ativan as directed. * Attachments The following attachments cannot be sent through Care Everywhere. * Chest Pain (AfterCare(R) Instructions(ER/ED)) (Ecuadorean) documented in this encounter Medications at Time [...] documented in this encounter ED Notes * Juan Luis Gilbert Jr., MD - 08/30/2017 3:17 AM CST HPI Chief Complaint Patient presents with ??? Anxiety HPI 47-year-old male patient with a history of anxiety, and PTSD, along with depression, presents with request for refill of his Lexapro and Ativan. He also complained of an approximate 10 minutes history of left upper substernal chest discomfort, described as a pressure, with radiation to the left shoulder, but no associated shortness of breath, nausea or vomiting, fever or chills, palpitations, or alleviating or aggravating factors. The patient states that he has had some mild weakness and occasional lightheadedness. He further denies abdominal pain, diarrhea, constipation, blood per stool, or urinary complaints. He states that he believes the chest discomfort is due simply to anxiety, and he requests that no labs to be done. It was explained to him and that his chest discomfort could be due to cardiac ischemia, heart attack, or other life- threatening etiologies. He decided to leave against medical advice, and was given a 1 week course of Xanax and Lexapro, so that he would not developed benzodiazepine withdrawal, and for the treatment of depression. He states that he has been out of his Xanax and Lexapro for the past day and a half. He was advised to follow up with his primary carefor further evaluation and treatment, including any further refill of his medications. It was explained to the patient that he should not expect to have these medications refilled in this emergency department in the future. Patient History Past Medical History: Diagnosis Date [...] Smokeless tobacco: Not on file ??? Alcohol use No Review of Systems Review of Systems Constitutional: Negative. HENT: Negative. Eyes: Negative. Respiratory: Positive for cough. The patient has had a cough productive for thick clear sputum. Cardiovascular: Positive for chest pain. Negative for palpitations and leg swelling. Gastrointestinal: Negative. Genitourinary: Negative. Musculoskeletal: Negative. Neurological: The patient has noted transient weakness and lightheadedness. Psychiatric/Behavioral: The patient has had anxiety. Physical Exam ED Triage Vitals Temp Pulse Resp BP SpO2 -- 08/30/17 0200 08/30/17 0200 08/30/17 0200 08/30/17 0200 65 11 156/100 96 % Temp src Heart Rate Source Patient Position BP Location FiO2 (%) -- 08/30/17256 -- 08/30/17256 -- Monitor Right arm Physical Exam Constitutional: He is oriented to person, place, and time. He appears well- developed and well-nourished. Non anxious appearing male patient HENT: Head: Normocephalic and atraumatic. Eyes: EOM are normal. Pupils are equal, round, and reactive to light. Neck: Normal range of motion. Neck supple. Cardiovascular: Normal rate, regular rhythm and normal heart sounds. Exam reveals no gallop and no friction rub. No murmur heard. Pulmonary/Chest: Effort normal and breath sounds normal. No respiratory distress. He has no wheezes. He has no rales. He exhibits no tenderness. Abdominal: Soft. Bowel sounds are normal. There is no tenderness. Musculoskeletal: Normal range of motion. Neurological: He is alert and oriented to person, place, and time. Skin: Skin is warm and dry. ED Course & MDM ED Course MDM Chest pain in adult History of anxiety disorder Juan Luis Gilbert Jr., MD 08/30/17 0547 * Angi Taveras RN - 08/30/2017 2:58 AM CST MD wanting to do cardiac workup on patient. Pt does not want testing completed at this time. Pt refusing to have desk monitor on and further workup at this time. Patient states he is no longer having chest pain and feels this is not cardiac related. MD aware. VS as charted. Will continue to monitor. Angi Taveras RN 08/30/17 0259 * Angi Taveras RN - 08/30/2017 1:30 AM CST Assumed care for patient. Patient states he is out of his lexapro 20 mg Daily and xanax 2mg TID. Patient feels like he is withdrawing from xanax because he is clammy and having mild chest pain. EKG completed. Patient also feels like his chest is thumping. HR is 66 at this time. Physical assessment is negative. Patient states he has a doctors appointment on 09/08 for medication refills. VS as charted. Will continue to monitor. Angi Taveras RN 08/30/17 0152 * Donal Pagan RN - 08/30/2017 12:16 AM CST Out of his Lexapro and xanax (prescribed by Dr. Wei but pt states he let him go ) has an appt on with [facility]. Pt has been out of his meds for 1 day and is feeling anxious. Denies SI/HI documented in this encounter Miscellaneous Notes * ED Procedure Note - Juan Luis Gilbert Jr., MD - 08/30/2017 3:35 AM ARNP Associated Order(s): ECG 12-LEAD Procedure ECG 12 lead Date/Time: 08/30/2017 4:27 AM Performed by: JUAN LUIS GILBERT JR. Authorized by: JUAN LUIS GILBERT JR. Rate: ECG rate: 65 ECG rate assessment: normal Rhythm: Rhythm: sinus rhythm Ectopy: Ectopy: none QRS: QRS axis: Normal Conduction: Conduction: normal ST segments: ST segments: Normal Juan Luis Gilbert Jr., MD 08/30/17 0428 documented in this encounter Plan of Treatment Scheduled Procedures Name Priority Associated Diagnoses Date/Ti me COLONOSCOPY Open Access Diverticulitis documented as of this encounter Procedures Procedure Name Priority Date/Time Associated Diagnosis Comments ECG 12-LEAD STAT 08/30/2017 1:25 AM ARNP documented in this encounter Results * ECG 12 lead (08/30/2017 1:25 AM ARNP) Patient age 47 years [facility] Interpretation Text SINUS RHYTHMNORMAL ECGNO PREVIOUS TRACING [facility] Comment:Physician Interprete r Dr. Natalie Dooley DGwenOGwen Ventricular Rate EKG/Min 65 /min [facility] P Wave Duration 123 ms [facility] QRS-Interval (MSEC) 99 ms [facility] OK-Interval (MSEC) 136 ms [facility] QT Interval 408 ms [facility] QTc 416 ms [facility] QTC Interval ms [facility] P [place] 3 deg [facility] QRS [place] 24 deg [facility] T [place] 9 deg [facility] 08/30/2017 1:25 AM ARNP us Juan Luis Gilbert Jr., MD ECG ORDERABLES Final Result [facility] documented in this encounter Visit Diagnoses Diagnosis Chest pain in adult- Primary History of anxiety disorder documented in this encounter Care Teams Office Secretary Relationship Specialty Start Date End Date Raza Gabriel MD [address] [place] [id number] PCP - General 07/02/17 09/14/17 documented as of this encounter
--- OUTSIDE RECORDS SUMMARY | 2024-09-10 04:13 | XMS_ITS | Encounter Summary ---
Author Organization [facility] Care Team Providers Care Philosophy Instructor Name Role Phone Unavailable Primary Care Provider Unavailabl e Encounter Details Date Type Department Care Team (Latest Contact Info) Description 06/10/2009 3:30 AM CDT - 06/10/2009 4:20 AM CDT Hospital Encounter [facility] Yessi Walter MD [address] [place] [address] [place] [address] [id number] Anxiety state; Adjustment disorder with depressed mood Social History Tobacco Use Types Packs/Day Years Used Date Smoking Tobacco: Never Assessed Sex and Gender Information Value Date Recorded Sex Assigned at Not on file 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
--- OUTSIDE RECORDS SUMMARY | 2024-09-10 04:13 | XMS_ITS | Encounter Summary ---
Author Organization [facility] Healthcare Address [address] [place] [address] Care Team Providers Care Wire Mesh Gate Assembler Name Role Phone Unavailable Primary Care Provider Unavailabl e Encounter Details Date Type Department Care Team (Latest Contact Info) Description 06/10/2016 11:02 PM CDT - 06/11/2016 12:38 AM CDT Hospital Encounter [facility] Reji Deluca, DO [address] [place], [place] [id number] Anxiety disorder; Essential (primary) hypertension; Type 2 diabetes mellitus without complications (CMS/[facility]) Social History Tobacco Use Types Packs/Day Years Used Date Smoking Tobacco: Never Assessed Sex and Gender Information Value Date Recorded Sex Assigned at Not on file 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 Sex Male 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 Gender Identity Not on file Sexual Orientation Not on file documented as of this encounter Last Filed Vital Signs Vital Sign Reading Time Taken Comments Blood Pressure 129/79 06/10/2016 11:02 PM CDT Pulse 70 06/10/2016 11:02 PM CDT Temperature 36.6 ??C (97.9 ??F) 06/10/2016 11:02 PM C DT Respiratory Rate - - Oxygen Saturation 93% 06/10/2016 11:02 PM CDT Inhaled Oxygen Concentration - - Weight 117.9 kg (260 lb) 06/10/2016 11:02 PM CDT Height 188 cm (6' 2 ) 06/10/2016 11:02 PM CDT Body Mass Index 33.38 06/10/2016 11:02 PM CDT documented in this encounter Plan of Treatment Scheduled Procedures Name Priority Associated Diagnoses Date/Ti me COLONOSCOPY Open Access Diverticulitis documented as of this encounter Procedures Procedure Name Priority Date/Time Associated Diagnosis Comments URINALYSIS, MACRO AND MICRO Routine 06/11/2016 12:01 AM CDT COMPREHENSIVE METABOLIC PANEL Routine 06/11/2016 12:01 AM CDT CBC WITH AUTO DIFFERENTIAL Routine 06/11/2016 12:00 AM CDT documented in this encounter Results * (ABNORMAL) Urinalysis, macro and micro (06/11/2016 12:01 AM CDT) Ur Collection Type CLEAN CATCH 06/11/2016 12:19 [facility] Urine Color YELLOW YELLOW 06/11/2016 12:19 AM [facility] Urine Clarity CLEAR CLEAR 06/11/2016 12:19 AM [facility] Urine Glucose (UA) NORMAL NORMAL mg/dL 06/11/2016 12:19 AM [facility] Urine Bilirubin NEGATIVE NEGATIVE mg/dl 06/11/2016 12:19 AM [facility] Urine Ketones NEGATIVE NEGATIVE mg/dL 06/11/2016 12:19 AM [facility] HIST[facility] RESULTS Ur Specific [place] 1.013 1.005 - 1.025 06/11/2016 12:19 AM [facility] Urine Blood NEGATIVE NEGATIVE mg/dl 06/11/2016 12:19 AM [facility] HIST[facility] RESULTS Urine pH 5.0 5.0 - 8.0 06/11/2016 12:19 AM [facility] Urine Protein NEGATIVE NEGATIVE mg/dL 06/11/2016 12:19 AM [facility]IST[facility] RESULTS Urine Urobilinogen NORMAL NORMAL mg/dL 06/11/2016 12:19 AM [facility]ULTS Urine Nitrite NEGATIVE NEGATIVE 06/11/2016 12:19 AM [facility]ISTOR[facility] RESULTS Ur Leukocyte Esterase 75(H) NEGATIVE Arlen/ul 06/11/2016 12:19 AM [facility] Ur Microscopic Review Indicated or Ordered 06/11/2016 12:19 AM [facility] Urine RBC <1 0 - 2 /HPF 06/11/2016 12:19 AM [facility] Urine WBC <1 0 - 2 /HPF Urine Mucus RARE /LPF 06/11/2016 12:0 1 AM CDT 06/11/2016 12:07 AM CDT Narrative [facility] HISTORICAL RESULTS - 06/11/2016 12:19 AM CDT us Historical Provider LAB URINE ORDERABLES Laura l Result [facility] HISTORICAL RESULTS * (ABNORMAL) Comprehensive metabolic panel (06/11/2016 12:01 AM CDT) Sodium 140 135 - 145 mmol/L Potassium 3.8 3.3 - 5.1 mmol/L Chloride 97 96 - 108 mmol/L Carbon Dioxide 30 22 - 32 mmol/L Anion Gap 13 7 - 16 Glucose 106(H) 70 - 100 mg/dL BUN 9 6 [...] or on dialysis @ Est GFR (Cockcroft-G) 143 ml/MIN 06/11/2016 1:11 AM [facility] Comment: Estimated GFR(Cockroft-Gault)is used to calculate patient medication dosage Calcium 10.3(H) 8.6 - 10.0 mg/dL 06/11/2016 1:11 AM [facility] [employer] [facility] Total Protein 8.1 6.4 - 8.3 g/dL 06/11/2016 1:11 AM [facility] HISTOR[facility] RESULTS Albumin 4.6 3.5 - 5.2 g/dL 06/11/2016 1:11 AM [facility] HISTORICAL RESULTS Globulin 3.5 2.3 - 3.5 gm/dL 06/11/2016 1:11 AM [facility] HISTORICAL RESULTS Albumin/Globulin Ratio 1.3 1.1 - 1.8 06/11/2016 1:11 AM [facility] [employer] [facility] HISTORICAL RESULTS Total Bilirubin 1.3(H) 0.0 - 1.2 mg/dL 06/11/2016 1:11 AM [facility] [employer] [facility] HISTORICAL RESULTS AST 60(H) 0 - 40 U/L 06/11/2016 1:11 AM [facility] HISTOR[facility] RESULTS ALT 48(H) 0 - 41 U/L 06/11/2016 1:11 AM [facility] HISTORICAL RESULTS Alkaline Phosphatase 74 40 - 129 U/L 06/11/2016 1:11 AM T [facility] [employer] [facility] HISTORICAL RESULTS 06/11/2016 12:0 1 AM CDT 06/11/2016 12:07 AM CDT Narrative [facility] - 06/11/2016 1:11 AM CDT us Historical Provider LAB BLOOD ORDERABLES Laura la Result [facility] HISTORICAL RESULTS * (ABNORMAL) CBC with auto differential (06/11/2016 12:00 AM CDT) WBC 6.8 4.6 - 10.2 x10 3/ul 06/11/2016 12:12 AM T [facility] [employer] HISTORICAL RESULTS RBC 5.80(H) 4.11 - 5.71 x10 6/ul 06/11/2016 12:12 AM T [facility]ISTOR[facility] RESULTS Hemoglobin 12.0(L) 13.0 - 17.0 g/dl 06/11/2016 12:12 AM T [facility] [employer] [facility] HISTORICAL RESULTS Hct 40.6 38.2 - 48.5 % 06/11/2016 12:12 AM T [facility] [employer] HISTORICAL RESULTS MCV 70.0(L) 80.0 - 97.0 fl 06/11/2016 12:12 AM T [facility] HISTORICAL RESULTS MCH 20.7(L) 27.0 - 31.2 pg 06/11/2016 12:12 AM T [facility] HISTORICAL RESULTS MCHC 29.6(L) 31.8 - 35.4 g/dl 06/11/2016 12:12 AM T [facility] [employer] [facility] HISTORICAL RESULTS RDW 18.6(H) 11.6 - 14.8 % 06/11/2016 12:12 AM T [facility] [employer] HISTORICAL RESULTS Plt Count 224 124 - 400 x10 3/ul 06/11/2016 12:12 AM T [facility] [employer] [facility] HISTORICAL RESULTS MPV 8.9 7.4 - 10.4 fl 06/11/2016 12:12 AM T [facility] [employer] [facility] HISTORICAL RESULTS Neut % 61.3 37.0 - 85.0 % 06/11/2016 12:12 AM T [facility] HISTORICAL RESULTS Immature Gran % 0.1 0.0 - 3.0 % 06/11/2016 12:12 AM CDT [facility]ISTOR[facility] RESULTS Lymph % 29.0 5.0 - 45.0 % [place] % 7.0 3.0 - 15.0 % Eos % 2.2 0.0 - 7.0 % Baso % 0.4 0.0 - 2.0 % 06/11/2016 12:12 AM CDT [facility] HISTOR[facility] RESULTS Absolute Neuts (auto) 4.1 1.7 - 8.7 x10 3/ul 06/11/2016 12:12 AM CDT [facility] HISTOR[facility] RESULTS Immature Gran # 0.0 0.0 - 0.3 x10 3/ul Absolute Lymphs (auto) 2.0 0.2 - 4.6 x10 3/ul 06/11/2016 12:12 AM CDT [facility] HISTOR[facility] RESULTS Absolute Monos (auto) 0.5 0.1 - 1.5 x10 3/ul 06/11/2016 12:12 AM CDT [facility] HISTOR[facility] RESULTS Absolute Eos (auto) 0.2 0.0 - 0.7 x10 3/ul 06/11/2016 12:12 AM T [facility] [employer] HISTORICAL RESULTS Absolute Basos (auto) 0.0 0.0 - 0.2 x10 3/ul 06/11/2016 12:12 AM T [facility] HISTORICAL RESULTS 06/11/2016 06/11/2016 12: 07 AM CDT Narrative [facility] HISTOR[facility] RESULTS - 06/11/2016 12:12 AM CDT us Historical Provider LAB BLOOD ORDERABLES Laura l Result [facility] HISTORICAL RESULTS documented in this encounter Visit Diagnoses Diagnosis Anxiety disorder Anxiety state, unspecified Essential (primary) hypertension Unspecified essential hypertension Type 2 diabetes mellitus without complications (CMS/HCC) (HCC) documented in this encounter
--- OUTSIDE RECORDS SUMMARY | 2024-09-10 04:13 | XMS_ITS | Encounter Summary ---
Author Organization [facility] Healthcare Address [address] [place] [address] Care Team Providers Care Covered Button Maker Name Role Phone Unavailable Primary Care Provider Unavailabl e Encounter Details Date Type Department Care Team (Late st Contact Info) Description 12/06/2007 11:47 PM CDT - 12/07/2007 12:53 AM T Hospital Encounter [facility] Carlos Elizondo MD [address] [place] [address] Social History Tobacco Use Types Packs/Day Years Used Date Smoking Tobacco: Never Assessed Sex and Gender Information Value Date Recorded Sex Assigned at Not on file Legal Sex Male 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
--- OUTSIDE RECORDS SUMMARY | 2024-09-10 04:13 | XMS_ITS | Encounter Summary ---
Author Organization [facility] Healthcare Address [address] [place] [address] Care Team Providers Care Ammunition Assembly I Laborer Name Role Phone Unavailable Primary Care Provider Unavailabl e Encounter Details Date Type Department Care Team (Late st Contact Info) Description 02/14/2011 6:10 PM CDT - 02/14/2011 7:45 PM CDT Hospital Encounter [facility] John Ruvalcaba MD [address] [facility] [address] [place] [address] Procedure not carried out for other reasons Social History Tobacco Use Types Packs/Day Years Used Date Smoking Tobacco: Never Assessed Sex and Gender Information Value Date Recorded Sex Assigned at Not on file 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
--- OUTSIDE RECORDS SUMMARY | 2024-09-10 04:13 | XMS_ITS | Encounter Summary ---
Author Organization [facility] Healthcare Address [address] [place] [id number] Care Team Providers Care Caramel Coloring Operator Name Role Phone Unavailable Primary Care Provider Unavailabl e Encounter Details Date Type Department Care Team (Late st Contact Info) Description 02/25/2016 10:57 PM CDT - 02/25/2016 11:19 PM CDT Hospital Encounter [facility] John Costa MD [address] 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 Gender Identity Not on file Sexual Orientation Not on file documented as of this encounter Last Filed Vital Signs Vital Sign Reading Time Taken Comments Blood Pressure 147/85 02/25/2016 10:58 PM CDT Pulse 81 02/25/2016 10:58 PM CDT Temperature 37.2 ??C (98.9 ??F) 02/25/2016 10:58 PM C DT Respiratory Rate - - Oxygen Saturation 96% 02/25/2016 10:58 PM CDT Inhaled Oxygen Concentration - - Weight 114.8 kg (253 lb) 02/25/2016 10:58 PM CDT Height 188 cm (6' 2 ) 02/25/2016 10:58 PM CDT Body Mass Index 32.48 02/25/2016 10:58 PM CDT documented in this encounter Plan of Treatment Scheduled Procedures Name Priority Associated Diagnoses Date/Ti me COLONOSCOPY Open Access Diverticulitis documented as of this encounter Visit Diagnoses Diagnosis Generalized anxiety disorder Essential (primary) hypertension Unspecified essential hypertension Type 2 diabetes mellitus without complications (CMS/HCC) (HCC) 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
--- OUTSIDE RECORDS SUMMARY | 2024-09-10 04:13 | XMS_ITS | Encounter Summary ---
Author Organization [facility] Healthcare Address [address] [place] [id number] Care Team Providers Care Personal Finance Instructor Name Role Phone Unavailable Primary Care Provider Unavailabl e Encounter Details Date Type Department Care Team (Latest Contact Info) Description 08/15/2014 2:45 PM SHEET PILE HAMMER OPERATOR - 08/15/2014 9:15 PM SHEET PILE HAMMER OPERATOR Hospital Encounter [facility] ER Chest pain; Abdominal pain, epigastric; Diverticulitis of colon Social History Tobacco Use Types Packs/Day Years Used Date Smoking Tobacco: Never Assessed Sex and Gender Information Value Date Recorded Sex Assigned at Not on file Legal Sex Male 1:40 AM SHEET PILE HAMMER OPERATOR Gender Identity Not on file Sexual Orientation Not on file documented as of this encounter Plan of Treatment Scheduled Procedures Name Priority Associated Diagnoses Date/Ti me COLONOSCOPY Open Access Diverticulitis documented as of this encounter Procedures Procedure Name Priority Date/Time Associated Diagnosis Comments CT ABDOMEN PELVIS WO CONTRAST Routine 08/15/2014 6:52 PM SHEET PILE HAMMER OPERATOR XR CHEST PA LATERAL 2 VIEWS Routine 08/15/2014 3:46 PM SHEET PILE HAMMER OPERATOR URINALYSIS AND REFLEX TO MICROSCOPIC AND CULTURE Routine 08/15/2014 3:15 PM SHEET PILE HAMMER OPERATOR CBC WITH AUTO DIFFERENTIAL Routine 08/15/2014 3:15 PM SHEET PILE HAMMER OPERATOR TROPONIN I Routine 08/15/2014 3:15 PM SHEET PILE HAMMER OPERATOR DRUGS OF ABUSE SCREEN, URINE WITHOUT CONFIRMATION Routine 08/15/2014 3:15 PM SHEET PILE HAMMER OPERATOR APTT Routine 08/15/2014 3:15 PM SHEET PILE HAMMER OPERATOR PROTIME-INR Routine 08/15/2014 3:15 PM SHEET PILE HAMMER OPERATOR CHOLESTEROL, LDL, DIRECT Routine 08/15/2014 3:15 PM SHEET PILE HAMMER OPERATOR LIPASE Routine 08/15/2014 3:15 PM SHEET PILE HAMMER OPERATOR AMYLASE Routine 08/15/2014 3:15 PM SHEET PILE HAMMER OPERATOR LIPID PANEL Routine 08/15/2014 3:15 PM SHEET PILE HAMMER OPERATOR COMPREHENSIVE METABOLIC PANEL Routine 08/15/2014 3:15 PM SHEET PILE HAMMER OPERATOR documented in this encounter Results * CT Abdomen Pelvis WO Contrast (08/15/2014 6:52 PM SHEET PILE HAMMER OPERATOR) Anatomical Region Laterality Modality Body N/A Computed Tomogra phy 08/15/2014 6:52 PM SHEET PILE HAMMER OPERATOR Narrative 08/16/2014 10:15 PM SHEET PILE HAMMER OPERATOR PROCEDURE: CT ABDOMEN AND PELVIS WITHOUT CONTRAST HISTORY: Right flank pain. ??History of diverticulitis. TECHNIQUE: ??Non-contrast helical CT of the abdomen and pelvis was performed. STUDY LIMITATIONS: ??The absence of intravenous iodinated contrast limits the sensitivity of this examination, particularly for evaluation of the solid viscera. COMPARISON: ??CT abdomen and pelvis dated August 09, 2012 CT ABDOMEN FINDINGS: Lung Bases: ??The lung bases are clear. Liver/Gallbladder/Bile Ducts: ??The liver demonstrates diffuse decreased hypoattenuation. ??Gallbladder surgically absent. ??There is no bile duct dilatation. Spleen/Pancreas/Kidneys/Adrenal Glands: ??Non-contrast appearances of the spleen, pancreas, and adrenal glands are unremarkable. Bilateral punctate nonobstructing kidney stones are noted. ??The largest on the right is present in the interpolar region and measures 0.2 cm. ??The largest on the left measures 0.2 cm and is present in the interpolar region. ??No obstructing kidney stones or ureteral stones are identified. Vasculature: Unremarkable Lymph Nodes/Peritoneum/Mesentery/Omentum: ??There is no upper abdominal free fluid, free air, or lymph node enlargement. Stomach and Bowel: There is no evidence of a bowel obstruction Body Wall: ??No significant osseous or soft tissue abnormalities are identified. Support Devices: ??None. CT PELVIS FINDINGS: Bladder: ??There is persistent tethering of the urinary bladder dome to the sigmoid colon. Prostate Gland/Seminal Vesicles: ??Non-contrast appearances of the prostate gland and seminal vesicles are unremarkable. Vasculature: ??Unremarkable Lymph Nodes/Peritoneum/Mesentery/Omentum: ??There is no pelvic free fluid, free air, or lymph node enlargement. Bowel: Involving the sigmoid colon, there is marked mural wall thickening. ?? There are several associated diverticula with mild surrounding inflammation. Body Wall: ??No significant osseous or soft tissue abnormalities are identified. Support Devices: ??None. COMBINED CONCLUSIONS: ?? There is marked mural wall thickening involving the sigmoid colon. ??There are a few surrounding diverticula with associated surrounding inflammatory changes. ??While this may represent acute diverticulitis, underlying neoplasm cannot be excluded and follow-up colonoscopy is recommended. Persistent tethering of urinary bladder dome to the sigmoid colon. Bilateral nonobstructing kidney stones. ??No ureteral stones identified. Diffuse fatty infiltration of liver. Cholecystectomy. THIS IS AN ELECTRONICALLY VERIFIED REPORT 08/16/2014 10:03 PM: ??Saúl Espitia M.D. Saúl Espitia M.D. JA:[email or web address] 07:29 PM 12:15 PM [facility] [EOD] Procedure Note Provider, MD Rachael - 01/27/2021 PROCEDURE: CT ABDOMEN AND PELVIS WITHOUT CONTRAST HISTORY: Right flank pain. History of diverticulitis. TECHNIQUE: Non-contrast helical CT of the abdomen and pelvis wasperformed. STUDY LIMITATIONS: The absence of intravenous iodinated contrast limitsthe sensitivity of this examination, particularly for evaluation of the solid viscera. COMPARISON: CT abdomen and pelvis dated August 09, 2012 CT ABDOMEN FINDINGS: Lung Bases: The lung bases are clear. Liver/Gallbladder/Bile Ducts: The liver demonstrates diffuse decreased hypoattenuation. Gallbladder surgically absent. There is no bile duct dilatation. Spleen/Pancreas/Kidneys/Adrenal Glands: Non-contrast appearances of the spleen, pancreas, and adrenal glands are unremarkable. Bilateral punctate nonobstructing kidney stones are noted. The largest on the right ispresent in the interpolar region and measures 0.2 cm. The largest on the left measures 0.2 cm and is present in the interpolar region. No obstructing kidney stones or ureteral stones are identified. Vasculature: Unremarkable Lymph Nodes/Peritoneum/Mesentery/Omentum: There is no upper abdominalfree fluid, free air, or lymph node enlargement. Stomach and Bowel: There is no evidence of a bowel obstruction Body Wall: No significant osseous or soft tissue abnormalities areidentified. Support Devices: None. CT PELVIS FINDINGS: Bladder: There is persistent tethering of the urinary bladder dome to the sigmoid colon. Prostate Gland/Seminal Vesicles: Non-contrast appearances of the prostate gland and seminal vesicles are unremarkable. Vasculature: Unremarkable Lymph Nodes/Peritoneum/Mesentery/Omentum: There is no pelvic free fluid,free air, or lymph node enlargement. Bowel: Involving the sigmoid colon, there is marked mural wall thickening. There are several associated diverticula with mild surroundinginflammation. Body Wall: No significant osseous or soft tissue abnormalities areidentified. Support Devices: None. COMBINED CONCLUSIONS: There is marked mural wall thickening involving the sigmoid colon. Thereare a few surrounding diverticula with associated surrounding inflammatory changes. While this may represent acute diverticulitis, underlyingneoplasm cannot be excluded and follow-up colonoscopy is recommended. Persistent tethering of urinary bladder dome to the sigmoid colon. Bilateral nonobstructing kidney stones. No ureteral stones identified. Diffuse fatty infiltration of liver. Cholecystectomy. THIS IS AN ELECTRONICALLY VERIFIED REPORT 08/16/2014 10:03 PM: Saúl Espitia M.D. Saúl Espitia M.D. JA:[email or web address] 07:29 PM 12:15 PM [facility] [EOD] Zenaida Castaneda NP IMG CT PROCEDURES Final Resul t * XR Chest Pa Lateral 2 Views (08/15/2014 3:46 PM SHEET PILE HAMMER OPERATOR) Anatomical Region Laterality Modality Body, Chest N/A Radiographic Katarzyna ging 08/15/2014 3:46 PM SHEET PILE HAMMER OPERATOR Impressions 08/16/2014 2:29 PM SHEET PILE HAMMER OPERATOR ??No active lung disease. ??No focal infiltrate or evidence of pneumonia. THIS IS AN ELECTRONICALLY VERIFIED REPORT 08/16/2014 2:23 PM: ??Eliazar Cesar M.D. Eliazar Cesar M.D. NC:jovita 03:56 PM 01:02 PM [facility] [EOD] Narrative 08/16/2014 2:29 PM SHEET PILE HAMMER OPERATOR EXAMINATION: ??CHEST, PA and Lateral views HISTORY: ??Chest pain and shortness of breath COMPARISON: ??None. FINDINGS: The heart size is normal. No radiographic evidence of an effusion or pneumothorax. No evidence of focal consolidation or infiltrate. ??No concerning pulmonary nodules are seen. The bony thorax is intact. Procedure Note Provider, MD Rachael - 01/27/2021 EXAMINATION: CHEST, PA and Lateral views HISTORY: Chest pain and shortness of breath COMPARISON: None. FINDINGS: The heart size is normal. No radiographic evidence of an effusion or pneumothorax. No evidence of focal consolidation or infiltrate. No concerning pulmonary nodules are seen. The bony thorax is intact. IMPRESSION: No active lung disease. No focal infiltrate or evidence of pneumonia. THIS IS AN ELECTRONICALLY VERIFIED REPORT 08/16/2014 2:23 PM: Eliazar Cesar M.D. Eliazar Cesar M.D. NC:jovita 03:56 PM 01:02 PM [facility] [EOD] us Zenaida Castaneda NP IMG XR PROCEDURES Final Resul t * aPTT (08/15/2014 3:15 PM SHEET PILE HAMMER OPERATOR) APTT 37 24 - 38 SECONDS 08/16/2014 2:05 PM SHEET PILE HAMMER OPERATOR [facility] HISTORICAL RESULTS 08/15/2014 3:15 PM SHEET PILE HAMMER OPERATOR 08/16/2014 2:04 PM SHEET PILE HAMMER OPERATOR Result [facility] Historical Provider MD LAB BLOOD ORDERABLES Laura l Result Performing Organization Address [facility]/ZIP Co de Phone Number [facility] HISTORICAL RESULTS * Protime-INR (08/15/2014 3:15 PM SHEET PILE HAMMER OPERATOR) PT 13.3 12.2 - 14.8 SECONDS 08/16/2014 2:05 PM SHEET PILE HAMMER OPERATOR [facility] HISTORICAL RESULTS INR 0.98 0.01 - 5.99 08/16/2014 2:05 PM SHEET PILE HAMMER OPERATOR [facility] HISTORICAL RESULTS Comment: Recommended Therapeutic range for Oral Anticoagulant Therapy No anti-coagulation therapy ? Normal Range: ?0.8-1.4 Anti-coagulation therapy ? Low intensity therapy ?2.0-3.0 ? High intensity therapy ?? 2.5-3.5 Critical Value ? Greater than or equal to 6.0 Patients should be monitored for serious bleeding. ?? 08/15/2014 3:15 PM SHEET PILE HAMMER OPERATOR 08/16/2014 2:04 PM SHEET PILE HAMMER OPERATOR Result [facility] Historical Provider LAB BLOOD ORDERABLES Laura l Result Performing Organization Address [facility] Co de Phone Number [facility] HISTORICAL RESULTS * Lipase (08/15/2014 3:15 PM SHEET PILE HAMMER OPERATOR) Lipase 47 13 - 60 U/L 08/16/2014 2:04 PM SHEET PILE HAMMER OPERATOR [facility] HISTORICAL RESULTS 08/15/2014 3:15 PM SHEET PILE HAMMER OPERATOR 08/16/2014 1:52 PM SHEET PILE HAMMER OPERATOR Result [facility] Historical Provider MD LAB BLOOD ORDERABLES Laura l Result Performing Organization Address [facility]/ZIP Co de Phone Number [facility] HISTORICAL RESULTS * Amylase (08/15/2014 3:15 PM SHEET PILE HAMMER OPERATOR) Amylase 66 28 - 100 U/L 08/15/2014 3:15 PM SHEET PILE HAMMER OPERATOR 08/16/2014 1:52 PM SHEET PILE HAMMER OPERATOR us Historical Provider LAB BLOOD ORDERABLES Laura l Result [facility] HISTORICAL RESULTS * (ABNORMAL) Urinalysis reflex to microscopic and culture (08/15/2014 3:15 PM SHEET PILE HAMMER OPERATOR) Ur Collection Type CLEAN CATCH Ur Culture Indicated? C&S NOT INDICATED Urine Color YELLOW YELLOW Urine Clarity CLEAR CLEAR Urine Glucose (UA) NORMAL NORMAL mg/dL Urine Bilirubin NEGATIVE NEGATIVE mg/dl Urine Ketones NEGATIVE NEGATIVE mg/dL Ur Specific [place] 1.022 1.005 - 1.025 Urine Blood NEGATIVE NEGATIVE Eliseo/ul Urine pH 6.0 5.0 - 8.0 Urine Protein 30(H) NEGATIVE mg/dL Urine Urobilinogen NORMAL NORMAL mg/dL Urine Nitrite NEGATIVE NEGATIVE Ur Leukocyte Esterase NEGATIVE NEGATIVE Arlen/ul Ur Microscopic Review Indicated or Ordered Urine RBC <1 0 - 2 /HPF 08/16/2014 1:55 PM SHEET PILE HAMMER OPERATOR [facility] HISTORICAL RESULTS Urine WBC 1 0 - 2 /HPF 08/16/2014 1:55 PM SHEET PILE HAMMER OPERATOR [facility] HISTORICAL RESULTS Urine Mucus RARE /LPF 08/16/2014 1:55 PM SHEET PILE HAMMER OPERATOR [facility] HISTORICAL RESULTS Ur Squamous Epith Cells RARE /LPF 08/16/2014 1:55 PM SHEET PILE HAMMER OPERATOR [facility] HISTORICAL RESULTS 08/15/2014 3:15 PM SHEET PILE HAMMER OPERATOR 08/16/2014 1:52 PM SHEET PILE HAMMER OPERATOR us Historical Provider LAB MICROBIOLOGY - GENERA L ORDERABLES Final Result [facility] HISTORICAL RESULTS * (ABNORMAL) CBC with auto differential (08/15/2014 3:15 PM SHEET PILE HAMMER OPERATOR) WBC 6.5 4.6 - 10.2 x10 3/ul 08/16/2014 2:02 PM [facility] [employer] [facility] HISTORICAL RESULTS RBC 5.55 4.11 - 5.71 x10 6/ul Hemoglobin 12.9(L) 13.0 - 17.0 g/dl 08/16/2014 2:02 PM [facility] Hct 39.8 38.2 - 48.5 % MCV 71.7(L) 80.0 - 97.0 fl MCH 23.2(L) 27.0 - 31.2 pg 08/16/2014 2:02 PM [facility] H[facility]OR[facility] RESULTS MCHC 32.4 31.8 - 35.4 g/dl 08/16/2014 2:02 PM [facility] RES[facility] RDW 15.5(H) 11.6 - 14.8 % 08/16/2014 2:02 PM [facility]ULTS Plt Count 208 124 - 400 x10 3/ul MPV 9.2 7.4 - 10.4 fl Differential Method AUTOMATED DIFF --------- -- Neut % 60.1 37.0 - 85.0 % Immature Gran % 0.3 0.0 - 3.0 % Lymph % 31.9 5.0 - 45.0 % [place] % 5.3 3.0 - 15.0 % Eos % 1.9 0.0 - 7.0 % Baso % 0.5 0.0 - 2.0 % Absolute Neuts (auto) 3.9 1.7 - 8.7 x10 3/ul Immature Gran # 0.0 0.0 - 0.3 x10 3/ul Absolute Lymphs (auto) 2.1 0.2 - 4.6 x10 3/ul Absolute Monos (auto) 0.3 0.1 - 1.5 x10 3/ul Absolute Eos (auto) 0.1 0.0 - 0.7 x10 3/ul Absolute Basos (auto) 0.0 0.0 - 0.2 x10 3/ul 08/15/2014 3:15 PM SHEET PILE HAMMER OPERATOR 08/16/2014 1:52 PM [email or web address] us Historical Provider LAB BLOOD ORDERABLES Laura l Result [facility] HISTORICAL RESULTS * (ABNORMAL) Drug Screen, Urine (08/15/2014 3:15 PM SHEET PILE HAMMER OPERATOR) Ur Amphetamine Screen NEGATIVE NEGATIVE Comment: Cutoff Limit: ??1000 ng/mL Note: ??Positive results from this drug screen are unconfirmed. ??Unconfirmed screening results should not be used for non-medical purposes. Ur Barbiturates Screen NEGATIVE NEGATIVE 08/16/2014 1:59 PM SHEET PILE HAMMER OPERATOR [facility] HISTORICAL RESULTS Comment:Cutoff limit: 200 ng /mL U Benzodiazepines Scrn POSITIVE(H) NEGATIVE Comment: RESULT CALLED at: 1745 ON 08/15/14 BY CLR ?? CONFIRMATION on Positive result requested:NO Cutoff limit: 300 ng/mL U Cannabinoids Screen NEGATIVE NEGATIVE 08/16/2014 1:59 PM SHEET PILE HAMMER OPERATOR [facility] HISTORICAL RESULTS Comment:Cutoff Limit: 50 ng/ mL U Cocaine Metab Screen NEGATIVE NEGATIVE 08/16/2014 1:59 PM SHEET PILE HAMMER OPERATOR [facility] HISTORICAL RESULTS Comment:Cutoff limit: 300 ng /mL Urine Opiates Screen NEGATIVE NEGATIVE Comment:Cutoff Limit: 300 ng /mL Urine Creatinine/RAFA 261.0 mg/dL Comment:If Creatinine is < 4 0 mg/dL, recollection is suggested. 08/15/2014 3:15 PM SHEET PILE HAMMER OPERATOR 08/16/2014 1:52 PM SHEET PILE HAMMER OPERATOR us Historical Provider LAB URINE ORDERABLES Laura l Result [facility] HISTORICAL RESULTS * (ABNORMAL) Cholesterol, LDL, direct (08/15/2014 3:15 PM SHEET PILE HAMMER OPERATOR) LDL Cholesterol Measurd 110(H) 0 - 100 mg/dL 08/16/2014 1:58 PM SHEET PILE HAMMER OPERATOR [facility] HISTORICAL RESULTS Comment:High Risk > 159 mg/d L 08/15/2014 3:15 PM SHEET PILE HAMMER OPERATOR 08/16/2014 1:52 PM SHEET PILE HAMMER OPERATOR Historical Provider MD LAB BLOOD ORDERABLES Laura l Result Performing Organization Address [facility] de Phone Number [facility] HISTORICAL RESULTS * Troponin I (08/15/2014 3:15 PM SHEET PILE HAMMER OPERATOR) Troponin I < 0.300 0.000 - 0.300 ng/mL Comment: Reference using MARCK Chemiluminescence ? Negative: Repeat in 4-6 hours as indicated. 08/15/2014 3:15 PM SHEET PILE HAMMER OPERATOR 08/16/2014 1:52 PM SHEET PILE HAMMER OPERATOR Historical Provider MD LAB BLOOD ORDERABLES Laura l Result Performing Organization Address [facility] Phone Number [facility] HISTORICAL RESULTS * (ABNORMAL) Lipid panel (08/15/2014 3:15 PM SHEET PILE HAMMER OPERATOR) Triglycerides 283(H) 0 - 199 mg/dL Comment: LDL (measured) to follow due to Triglycerides >250 mg/dL 12 hr pc highly recommended for Triglyceride Cholesterol 161 0 - 199 mg/dL Comment: Borderline: ??200-239 High Risk: ?? >239 HDL Cholesterol 19(L) 40 - 60 mg/dL Comment: Major Risk ?< 40 mg/dL Moderate Risk ?40-60 mg/dL Negative Risk ?? > 60 mg/dL Cholesterol/HDL Ratio 8.5 Comment: Cholesterol / HDL Ratio 3.5:1 or less is desirable. Cholesterol / HDL Ratio greater than 5:1 is considered higher risk for developing heart disease. 08/15/2014 3:15 PM SHEET PILE HAMMER OPERATOR 08/16/2014 1:52 PM SHEET PILE HAMMER OPERATOR us Historical Provider LAB BLOOD ORDERABLES Laura la Result [facility] HISTORICAL RESULTS * (ABNORMAL) Comprehensive metabolic panel (08/15/2014 3:15 PM SHEET PILE HAMMER OPERATOR) [facility] Sodium 143 135 - 145 mmol/L Comment: Due to a Calibration adjustment, results may vary by +2 mmol/l as compared to results obtained prior to ?? August 15, 2014 Potassium 3.6 3.3 - 5.1 mmol/L Comment: Due to a Calibration adjustment, results may vary by +0.2 mmol/l as compared to results obtained prior to August 15, 2014 Chloride 102 96 - 108 mmol/L Carbon Dioxide 29 22 - 32 mmol/L Anion Gap 12 7 - 16 Glucose 141(H) 70 - 100 mg/dL Comment:As of August 15 14 new normal range in use. BUN 11 6 - 20 mg/dL Creatinine 0.8 0.5 - 1.3 mg/dL Kidney Disease Stage > 90 mL/MIN Comment: NOTE; ??The GFR is an estimated value using the creatinine, sex, age, and race of the patient. THE ESTIMATED GFR IS VALIDATED FOR AGES 18-70 YEARS STAGE ?mL/Min ?DESCRIPTION ??1 ?90 mL/min or more ?Normal or elevated GFR ??2 ? 60-89 mL/min ?Mildly decreased GFR ??3 ? 30-59 mL/min ?Moderately decreased GFR ??4 ? 15-29 mL/min ?Severely decreased GFR ??5 ? <15 mL/min ? Kidney failure or on dialysis @ Calcium 10.1(H) 8.6 - 10.0 mg/dL 08/16/2014 1:58 PM [facility] Multispectral Imaging HISTORICAL RESULTS Total Protein 8.0 6.4 - 8.3 g/dL 08/16/2014 1:58 PM [facility]OR[facility] Albumin 4.4 3.5 - 5.2 g/dL Globulin 3.6(H) 2.3 - 3.5 gm/dL 08/16/2014 1:55 PM [facility] HISTOR[facility] RESULTS Albumin/Globulin Ratio 1.2 1.1 - 1.8 Total Bilirubin 0.8 0.0 - 1.2 mg/dL 08/16/2014 1:58 PM [facility] HISTORICAL RESULTS AST 35 0 - 40 U/L Comment: SPECIMEN IS SLIGHTLY Hemolyzed. The above result is affected be increased hemolysis. ?? ALT 45(H) 0 - 41 U/L Alkaline Phosphatase 83 40 - 129 U/L 08/16/2014 1:58 PM [facility] HISTOR[facility] RESULTS 08/15/2014 3:15 PM SHEET PILE HAMMER OPERATOR 08/16/2014 1:52 PM SHEET PILE HAMMER OPERATOR us Historical Provider LAB BLOOD ORDERABLES Laura la Result [facility] HISTORICAL RESULTS documented in this encounter Visit Diagnoses Diagnosis Chest pain Unspecified chest pain Abdominal pain, epigastric Diverticulitis of colon Diverticulitis of colon (without mention of hemorrhage) documented in this encounter
--- OUTSIDE RECORDS SUMMARY | 2024-09-10 04:13 | XMS_ITS | Encounter Summary ---
Author Organization [facility] Healthcare Address [address] [place] [id number] Care Team Providers Care Bench Worker Name Role Phone Unavailable Primary Care Provider Unavailabl e Encounter Details Date Type Department Care Team (Late st Contact Info) Description 11/30/2009 7:29 PM CDT - 11/30/2009 11:30 PM CDT Hospital Encounter [facility] John Wood MD [address] [place] [address] [place] [address] Other specified gastritis; Diverticulitis of colon; Anxiety state Social History Tobacco Use Types Packs/Day Years Used Date Smoking Tobacco: Never Assessed Sex and Gender Information Value Date Recorded Sex Assigned at Not on file 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
--- OUTSIDE RECORDS SUMMARY | 2024-09-10 04:13 | XMS_ITS | Encounter Summary ---
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
--- OUTSIDE RECORDS SUMMARY | 2024-09-10 04:13 | XMS_ITS | Encounter Summary ---
Author Organization [facility] Healthcare Address [address] [place] [address] Care Team Providers Care Retail Support Manager Name Role Phone Unavailable Primary Care Provider Unavailabl e Encounter Details Date Type Department Care Team (Latest Contact Info) Description 08/12/2016 11:29 PM TAX MANAGER - 08/13/2016 3:18 AM TAX MANAGER Hospital Encounter [facility] Vignesh Liao [address] [place] [address] Irritable bowel syndrome without diarrhea; Diverticulitis of intestine without perforation or abscess without bleeding; Hyperlipidemia; Essential (primary) hypertension; Type 2 diabetes mellitus without complications (CMS/HCC); Other usp (current) drug therapy Social History Tobacco Use Types Packs/Day Years Used Date Smoking Tobacco: Never Assessed Sex and Gender Information Value Date Recorded Sex Assigned at Not on file Legal Sex Male 1:40 AM TAX MANAGER Gender Identity Not on file Sexual Orientation Not on file documented as of this encounter Last Filed Vital Signs Vital Sign Reading Time Taken Comments Blood Pressure 157/82 08/12/2016 11:29 PM TAX MANAGER Pulse 80 08/12/2016 11:29 PM TAX MANAGER Temperature 36.6 ??C (97.9 ??F) 08/12/2016 11:[address] Respiratory Rate - - Oxygen Saturation 98% 08/12/2016 11:29 PM TAX MANAGER Inhaled Oxygen Concentration - - Weight 113.4 kg (250 lb) 08/12/2016 11:29 PM TAX MANAGER Height 188 cm (6' 2 ) 08/12/2016 11:29 PM TAX MANAGER Body Mass Index 32.1 08/12/2016 11:29 PM TAX MANAGER documented in this encounter Medications at Time of Discharge promethazine (PHENERGAN) 25 mg tablet Take 25 mg by mouth every 6 hours. 07/17/2016 10/17/2020 documented as of this encounter Plan of Treatment Scheduled Procedures Name Priority Associated Diagnoses Date/Ti me COLONOSCOPY Open Access Diverticulitis documented as of this encounter Procedures Procedure Name Priority Date/Time Associated Diagnosis Comments URINALYSIS AND REFLEX TO MICROSCOPIC AND CULTURE Routine 08/13/2016 1:17 AM TAX MANAGER HEMOGRAM WITH MANUAL DIFFERENTIAL Routine 08/13/2016 12:22 AM TAX MANAGER SLIDE REVIEW - PATHOLOGIST Routine 08/13/2016 12:22 AM TAX MANAGER LIPASE Routine 08/13/2016 12:22 AM TAX MANAGER COMPREHENSIVE METABOLIC PANEL Routine 08/13/2016 12:22 AM TAX MANAGER documented in this encounter Results * (ABNORMAL) Urinalysis reflex to microscopic and culture (08/13/2016 1:17 AM TAX MANAGER) Ur Collection Type CLEAN CATCH 08/13/2016 1:46 AM [employer] HISTORICAL RESULTS Ur Culture Indicated? C&S NOT INDICATED 08/13/2016 1:46 AM [employer] HISTORICAL RESULTS Urine Color YELLOW YELLOW 08/13/2016 1:46 AM [employer] HISTORICAL RESULTS Urine Clarity CLEAR CLEAR 08/13/2016 1:46 AM [employer] HISTORICAL RESULTS Urine Glucose (UA) NORMAL NORMAL mg/dL 08/13/2016 1:46 AM [employer] HISTORICAL RESULTS Urine Bilirubin NEGATIVE NEGATIVE mg/dl 08/13/2016 1:46 AM [employer] HISTORICAL RESULTS Urine Ketones NEGATIVE NEGATIVE mg/dL 08/13/2016 1:46 AM [employer] HISTORICAL RESULTS Ur Specific [place] 1.012 1.005 - 1.025 08/13/2016 1:46 AM [employer] HISTORICAL RESULTS Urine Blood NEGATIVE NEGATIVE mg/dl 08/13/2016 1:46 AM [employer] HISTORICAL RESULTS Urine pH 6.0 5.0 - 8.0 08/13/2016 1:46 AM [employer] HISTORICAL RESULTS Urine Protein NEGATIVE NEGATIVE mg/dL 08/13/2016 1:46 AM [employer] HISTORICAL RESULTS Urine Urobilinogen NORMAL NORMAL mg/dL Urine Nitrite NEGATIVE NEGATIVE Ur Leukocyte Esterase 25(H) NEGATIVE Arlen/ul Ur Microscopic Review Indicated or Ordered Urine RBC 1 0 - 2 /HPF Urine WBC 2 0 - 2 /HPF Urine Mucus RARE /LPF 08/13/2016 1:17 AM TAX MANAGER 08/13/2016 1:41 AM TAX MANAGER Narrative [facility] HISTORICAL RESULTS - 08/13/2016 1:46 AM TAX MANAGER Vignesh Liao LAB MICROBIOLOGY - GENERA L ORDERABLES Final Result Performing Organization Address [facility]/ZIP Co de Phone Number [facility] HISTORICAL RESULTS * Slide review - pathologist (08/13/2016 12:22 AM TAX MANAGER) Diff Slide Review SLIDE REVIEW Comment: Pathologist Review of Peripheral Blood Smear ?? Pathologist Review of Peripheral Blood Smear ?? Pathologist Review of Peripheral Blood Smear Hem Pathologist Commnt Comment:Agree with different ial/morphology. Path Cons Sign Path Pathologist Comment:Reviewed by Shawanda benitez M.D. 08/13/2016 12:2 2 AM TAX MANAGER 08/13/2016 12:26 AM TAX MANAGER us Vignesh Liao LAB BLOOD ORDERABLES Laura l Result Performing Organization Address [facility]/ZIP Co de Phone Number [facility] HISTORICAL RESULTS * (ABNORMAL) Hemogram with manual differential (08/13/2016 12:22 AM TAX MANAGER) WBC 6.9 4.6 - 10.2 x10 3/ul 08/13/2016 12:38 AM TAX MANAGER [employer] HISTORICAL RESULTS RBC 6.02(H) 4.11 - 5.71 x10 6/ul 08/13/2016 12:38 AM TAX MANAGER [facility] HISTORICAL RESULTS Hemoglobin 11.9(L) 13.0 - 17.0 g/dl 08/13/2016 12:38 AM TAX MANAGER [facility] - [employer] HISTORICAL RESULTS Hct 40.5 38.2 - 48.5 % 08/13/2016 12:38 AM TAX MANAGER [employer] HISTORICAL RESULTS MCV 67.3(L) 80.0 - 97.0 fl 08/13/2016 12:38 AM TAX MANAGER [employer] HISTORICAL RESULTS MCH 19.8(L) 27.0 - 31.2 pg 08/13/2016 12:38 AM TAX MANAGER [employer] HISTORICAL RESULTS MCHC 29.4(L) 31.8 - 35.4 g/dl 08/13/2016 12:38 AM TAX MANAGER [employer] HISTORICAL RESULTS RDW 18.7(H) 11.6 - 14.8 % 08/13/2016 12:38 AM TAX MANAGER [employer] HISTORICAL RESULTS Plt Count 198 124 - 400 x10 3/ul 08/13/2016 12:38 AM [employer] HISTORICAL RESULTS MPV 9.0 7.4 - 10.4 fl 08/13/2016 12:38 AM [employer] HISTORICAL RESULTS MANUAL DIFF MANUAL DIFF --------- -- 08/13/2016 1:53 AM [employer] HISTORICAL RESULTS Comment:PATHOLOGIST'S COMMEN TS TO FOLLOW. Neutrophils % (Manual) 56 37 - 80 % 08/13/2016 1:53 AM [employer] HISTORICAL RESULTS Lymphocytes % (Manual) 36 10 - 51 % 08/13/2016 1:53 AM TAX MANAGER [employer] HISTORICAL RESULTS Atypical Lymphs % 1 0 - 6 % 08/13/2016 1:53 AM TAX MANAGER [employer] HISTORICAL RESULTS Monocytes % (Manual) 3 0 - 12 % 08/13/2016 1:53 AM TAX MANAGER [employer] HISTORICAL RESULTS Eosinophils % (Manual) 3 0 - 7 % 08/13/2016 1:53 AM TAX MANAGER [employer] HISTORICAL RESULTS Basophils % (Manual) 1 0 - 1 % ABSOLUTE COUNTS ABSOLUTE COUNTS --------- -- Abs Neuts cells/mm3 3864 /ul Absolute Neutrophils 3.9 1.7 - 8.7 x10 3/ul Absolute Lymphocytes 2.5 0.2 - 4.6 x10 3/ul ATYPICAL LYMPH ABS# 0.1 0 - 0.3 x10 3/ul Absolute Monocytes 0.2 0.1 - 1.5 x10 3/ul Absolute Eosinophils 0.2 0.0 - 0.7 x10 3/ul Absolute Basophils 0.1 0.0 - 0.2 x10 3/ul Platelet Evaluation AGREE AGREE Comment:Slide review of plat elets correlates with instrument count. Microcytosis 2+ Ovalocytes 1+ 08/13/2016 12:2 2 AM TAX MANAGER 08/13/2016 12:26 AM TAX MANAGER Narrative [facility] HISTORICAL RESULTS - 08/13/2016 1:53 AM TAX MANAGER us Vignesh Mylesman LAB BLOOD ORDERABLES Laura l Result [facility] HISTORICAL RESULTS * Lipase (08/13/2016 12:22 AM TAX MANAGER) Lipase 36 13 - 60 U/L 08/13/2016 12:2 2 AM TAX MANAGER 08/13/2016 12:26 AM TAX MANAGER Narrative [facility] HISTORICAL RESULTS - 08/13/2016 1:05 AM TAX MANAGER Vignesh Liao LAB BLOOD ORDERABLES Laura la Result [facility] HISTORICAL RESULTS * (ABNORMAL) Comprehensive metabolic panel (08/13/2016 12:22 AM TAX MANAGER) Sodium 140 135 - 145 mmol/L 08/13/2016 1:05 AM TAX MANAGER [facility] HISTORICAL RESULTS Potassium 3.4 3.3 - 5.1 mmol/L 08/13/2016 1:05 AM TAX MANAGER [facility] HISTORICAL RESULTS Chloride 99 96 - 108 mmol/L Carbon Dioxide 29 22 - 32 mmol/L Anion Gap 12 7 - 16 Glucose 115(H) 70 - 100 mg/dL BUN 8 6 - 20 mg/dL Creatinine 0.8 0.5 [...] or on dialysis @ Est GFR (Cockcroft-G) 158 ml/MIN 08/13/2016 1:05 AM [employer] [facility] [employer] HISTORICAL RESULTS Comment: Estimated GFR(Cockroft-Gault)is used to calculate patient medication dosage Calcium 9.1 8.6 - 10.0 mg/dL 08/13/2016 1:05 AM [facility] HISTORICAL RESULTS Total Protein 8.0 6.4 - 8.3 g/dL 08/13/2016 1:05 AM [facility] HISTORICAL RESULTS Albumin 4.4 3.5 - 5.2 g/dL 08/13/2016 1:05 AM [facility] HISTORICAL RESULTS Globulin 3.6(H) 2.3 - 3.5 gm/dL 08/13/2016 1:05 AM [facility] HISTORICAL RESULTS Albumin/Globulin Ratio 1.2 1.1 - 1.8 08/13/2016 1:05 AM [facility] HISTORICAL RESULTS Total Bilirubin 1.4(H) 0.0 - 1.2 mg/dL 08/13/2016 1:05 AM [facility] HISTORICAL RESULTS AST 49(H) 0 - 40 U/L 08/13/2016 1:05 AM [facility] [employer] HISTORICAL RESULTS ALT 49(H) 0 - 41 U/L 08/13/2016 1:05 AM TAX MANAGER [facility] HISTORICAL RESULTS Alkaline Phosphatase 71 40 - 129 U/L 08/13/2016 1:05 AM [facility] [employer] HISTORICAL RESULTS 08/13/2016 12:2 2 AM TAX MANAGER 08/13/2016 12:26 AM TAX MANAGER [facility] [employer] HISTORICAL RESULTS - 08/13/2016 1:05 AM TAX MANAGER Vignesh Liao LAB BLOOD ORDERABLES Laura la Result [facility] HISTORICAL RESULTS documented in this encounter Visit Diagnoses Diagnosis Irritable bowel syndrome without diarrhea Diverticulitis of intestine without perforation or abscess without bleeding Hyperlipidemia Other and unspecified hyperlipidemia Essential (primary) hypertension Unspecified essential hypertension Type 2 diabetes mellitus without complications (CMS/HCC) (HCC) 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
--- OUTSIDE RECORDS SUMMARY | 2024-09-10 04:13 | XMS_ITS | Encounter Summary ---
Author Organization [facility] Healthcare Address [address] [place] [address] Care Team Providers Care Water Plant Maintenance Mechanic Name Role Phone Unavailable Primary Care Provider Unavailabl e Encounter Details Date Type Department Care Team (Latest Contact Info) Description 05/19/2016 2:28 AM CDT - 05/19/2016 4:04 AM CDT Hospital Encounter [facility] Corrina Biggs MD [address] [facility] [place] [address] Anxiety disorder; Nasal congestion; Essential (primary) hypertension; Type 2 diabetes mellitus without complications (CMS/[facility]) Social History Tobacco Use Types Packs/Day Years Used Date Smoking Tobacco: Never Assessed Sex and Gender Information Value Date Recorded Sex Assigned at Not on file Legal Sex Male 1:40 AM HARNESS MAKER Gender Identity Not on file Sexual Orientation Not on file documented as of this encounter Last Filed Vital Signs Vital Sign Reading Time Taken Comments Blood Pressure 144/76 05/19/2016 2:28 AM CDT Pulse 83 05/19/2016 2:28 AM CDT Temperature 37 ??C (98.6 ??F) 05/19/2016 2:28 AM CDT Respiratory Rate - - Oxygen Saturation 96% 05/19/2016 2:28 AM CDT Inhaled Oxygen Concentration - - Weight 117.9 kg (260 lb) 05/19/2016 2:28 AM CDT Height 188 cm (6' 2 ) 05/19/2016 2:28 AM CDT Body Mass Index 33.38 05/19/2016 2:28 AM CDT documented in this encounter Plan of Treatment Scheduled Procedures Name Priority Associated Diagnoses Date/Ti me COLONOSCOPY Open Access Diverticulitis documented as of this encounter Procedures Procedure Name Priority Date/Time Associated Diagnosis Comments URINALYSIS, MACRO AND MICRO Routine 05/19/2016 3:31 AM CDT XR SINUSES 3 OR MORE VIEWS Routine 05/19/2016 12:00 AM CDT documented in this encounter Results * (ABNORMAL) Urinalysis, macro and micro (05/19/2016 3:31 AM CDT) Ur Collection Type CLEAN CATCH 05/19/2016 3:54 AM [facility] Urine Color JD YELLOW 05/19/2016 3:54 AM [facility] HISTOR[facility] RESULTS Urine Clarity CLEAR CLEAR 05/19/2016 3:54 AM [facility] HISTORICAL RESULTS Urine Glucose (UA) NORMAL NORMAL mg/dL 05/19/2016 3:54 AM [facility] HISTOR[facility] RESULTS Urine Ictotest NEGATIVE NEGATIVE 05/19/2016 3:54 AM [facility] HISTORICAL RESULTS Comment: Urine Bilirubin result confirmed with Ictotest. Urine Ketones 5(H) NEGATIVE mg/dL 05/19/2016 3:54 AM [facility] HISTORICAL RESULTS Ur Specific [place] 1.034(H) 1.005 - 1.025 05/19/2016 3:54 AM [facility] HISTORICAL RESULTS Urine Blood NEGATIVE NEGATIVE mg/dl 05/19/2016 3:54 AM [facility] HISTORICAL RESULTS Urine pH 5.0 5.0 - 8.0 05/19/2016 3:54 AM [facility] HISTORICAL RESULTS Urine Protein 100(H) NEGATIVE mg/dL 05/19/2016 3:54 AM [facility] HISTORICAL RESULTS Urine Urobilinogen 2(H) NORMAL mg/dL 05/19/2016 3:54 AM [facility] HISTORICAL RESULTS Urine Nitrite NEGATIVE NEGATIVE 05/19/2016 3:54 AM [facility] HISTORICAL RESULTS Ur Leukocyte Esterase 75(H) NEGATIVE Arlen/ul 05/19/2016 3:54 AM [facility] HISTOR[facility] RESULTS Ur Microscopic Review Indicated or Ordered 05/19/2016 3:54 AM [facility] HISTORICAL RESULTS Urine RBC 2 0 - 2 /HPF 05/19/2016 3:54 AM [facility] HISTORICAL RESULTS Urine WBC 1 0 - 2 /HPF 05/19/2016 3:54 AM [facility] HISTORICAL RESULTS Urine Mucus Few /LPF 05/19/2016 3:31 AM CDT 05/19/2016 3:43 AM CDT Narrative [facility] HISTORICAL RESULTS - 05/19/2016 3:54 AM CDT Landy Peng LAB URINE ORDERABLES Laura l Result [facility] HISTORICAL RESULTS * XR Sinuses 3 or More Views (05/19/2016 12:00 AM CDT) Anatomical Region Laterality Modality Head and Neck N/A Radiographic Katarzyna ging 05/19/2016 Impressions 05/19/2016 3:44 AM CDT ??Opacification of the right maxillary sinus is chronic and likely represents the mucous retention cyst seen on CT maxillofacial December 14, 2015. ?? No radiographic evidence of new sinusitis, however a CT is more sensitive. THIS IS AN ELECTRONICALLY VERIFIED REPORT 05/19/2016 3:40 AM: ??Cheko Flores M.D. ?? Cheko Flores M.D. MA:kentrell 03:40 AM 03:40 AM [facility] [EOD] Narrative 05/19/2016 3:44 AM CDT EXAMINATION: ??Sinuses 3 views HISTORY: ??Sinus pressure, sinus congestion, and sinus drainage for 1 week COMPARISON: ??CT maxillofacial December 14, 2015 FINDINGS: Escobar, Smith, and lateral views of the paranasal sinuses were obtained. ??There is a chronic opacification of the right maxillary sinus likely representing a mucous retention cyst seen on December 14, 2015. ??The left maxillary sinus and ethmoid sinuses are grossly clear. ??Frontal sinuses are grossly clear. Procedure Note Provider, MD Rachael - 01/27/2021 EXAMINATION: Sinuses 3 views HISTORY: Sinus pressure, sinus congestion, and sinus drainage for 1 week COMPARISON: CT maxillofacial December 14, 2015 FINDINGS: Escobar, Smith, and lateral views of the paranasal sinuseswere obtained. There is a chronic opacification of the right maxillary sinus likely representing a mucous retention cyst seen on December 14, 2015. Theleft maxillary sinus and ethmoid sinuses are grossly clear. Frontal sinusesare grossly clear. IMPRESSION: Opacification of the right maxillary sinus is chronic andlikely represents the mucous retention cyst seen on CT maxillofacial December. No radiographic evidence of new sinusitis, however a CT is moresensitive. THIS IS AN ELECTRONICALLY VERIFIED REPORT 05/19/2016 3:40 AM: Cheko Flores M.D. Cheko Flores M.D. MA:kentrell 03:40 AM 03:40 AM APO [EOD] Landy Peng IMG XR PROCEDURES Final R esult documented in this encounter Visit Diagnoses Diagnosis Anxiety disorder Anxiety state, unspecified Nasal congestion Other diseases of nasal cavity and sinuses Essential (primary) hypertension Unspecified essential hypertension Type 2 diabetes mellitus without complications (CMS/HCC) (HCC) documented in this encounter
--- OUTSIDE RECORDS SUMMARY | 2024-09-10 04:13 | XMS_ITS | Encounter Summary ---
Author Organization [facility] Care Team Providers Care Dining Service Worker Name Role Phone Unavailable Primary Care Provider Unavailabl e Encounter Details Date Type Department Care Team (Latest Contact Info) Description 10/23/2016 8:00 PM CARE NURSE RN - 10/23/2016 10:49 PM CARE NURSE RN Hospital Encounter [facility] Balta Stock, DO [address] [place] [address] Encounter for issue of repeat prescription; Strain of muscle, fascia and tendon at neck level, initial encounter; Exposure to other specified factors, initial encounter; Activity involving sleeping; Unspecified place or not applicable; Sedative, hypnotic or anxiolytic dependence, uncomplicated (CMS/HCC); Major depressive disorder, single episode; Anxiety disorder; 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 Social History Tobacco Use Types Packs/Day Years Used Date Smoking Tobacco: Never Assessed Sex and Gender Information Value Date Recorded Sex Assigned at Not on file Legal Sex Male 1:40 AM CARE NURSE RN Gender Identity Not on file Sexual [...] Diagnosis Encounter for issue of repeat prescription Strain of muscle, fascia and tendon at neck level, initial encounter Exposure to other specified factors, initial encounter Activity involving sleeping Unspecified place or not applicable Sedative, hypnotic or anxiolytic dependence, uncomplicated (HCC) Major depressive disorder, single episode Major depressive disorder, single episode, unspecified Anxiety disorder Anxiety state, unspecified Other penitentiary (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
--- OUTSIDE RECORDS SUMMARY | 2024-09-10 04:13 | XMS_ITS | Encounter Summary ---
Author Organization [facility] Healthcare Address [address] [place] [address] Care Team Providers Care Tool Lathe Operator Name Role Phone Unavailable Primary Care Provider Unavailabl e Encounter Details Date Type Department Care Team (Latest Contact Info) Description 06/18/2016 12:37 AM CDT - 06/18/2016 3:31 AM CDT Hospital Encounter [facility] Corrina Biggs MD [address] [facility] [place] [address] Anxiety disorder; Other psychoactive substance abuse, uncomplicated; Bipolar disorder (CMS/HCC); Essential (primary) hypertension; Type 2 diabetes mellitus without complications (CMS/HCC); Other retirement (current) drug therapy Social History Tobacco Use Types Packs/Day Years Used Date Smoking Tobacco: Never Assessed Sex and Gender Information Value Date Recorded Sex Assigned at Not on file Legal Sex 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 Gender Identity Not on file Sexual Orientation Not on file documented as of this encounter Last Filed Vital Signs Vital Sign Reading Time Taken Comments Blood Pressure 138/79 06/18/2016 12:39 AM CDT Pulse 88 06/18/2016 12:39 AM CDT Temperature 36.9 ??C (98.4 ??F) 06/18/2016 12:39 AM C DT Respiratory Rate - - Oxygen Saturation 96% 06/18/2016 12:39 AM CDT Inhaled Oxygen Concentration - - Weight 120.2 kg (265 lb) 06/18/2016 12:39 AM CDT Height 188 cm (6' 2 ) 06/18/2016 12:39 AM CDT Body Mass Index 34.02 06/18/2016 12:39 AM CDT documented in this encounter Plan of Treatment Scheduled Procedures Name Priority Associated Diagnoses Date/Ti me COLONOSCOPY Open Access Diverticulitis documented as of this encounter Visit Diagnoses Diagnosis Anxiety disorder Anxiety state, unspecified Other psychoactive substance abuse, uncomplicated (HCC) Bipolar disorder (HCC) Bipolar disorder, unspecified Essential (primary) hypertension Unspecified essential hypertension Type 2 diabetes mellitus without complications (CMS/HCC) (HCC) Other retirement (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
--- OUTSIDE RECORDS SUMMARY | 2024-09-10 04:13 | XMS_ITS | Encounter Summary ---
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
--- OUTSIDE RECORDS SUMMARY | 2024-09-10 04:13 | XMS_ITS | Encounter Summary ---
Author Organization [facility] Care Team Providers Care Acquisition Cost Estimator Name Role Phone Unavailable Primary Care Provider Unavailabl e Encounter Details Date Type Department Care Team (Late st Contact Info) Description 04/29/2010 10:11 PM CDT - 04/29/2010 11:59 PM CDT Hospital Encounter [facility] Anxiety state Social History Tobacco Use Types Packs/Day Years Used Date Smoking Tobacco: Never Assessed Sex and Gender Information Value Date Recorded Sex Assigned at Not on file Legal Sex Male 1:40 AM IOS ARCHITECT Gender Identity Not on file Sexual Orientation Not on file documented as of this encounter Plan of Treatment Scheduled Procedures Name Priority Associated Diagnoses Date/Ti co COLONOSCOPY Open Access Diverticulitis documented as of this encounter Visit Diagnoses Diagnosis Anxiety state Anxiety state, unspecified documented in this encounter
--- OUTSIDE RECORDS SUMMARY | 2024-09-10 04:13 | XMS_ITS | Encounter Summary ---
[facility] Care Team Providers Care Lean Sensei Name Role Phone Unavailable Primary Care Provider Unavailabl e Encounter Details Date Type Department Care Team (Latest Contact Info) Description 06/08/2016 6:53 PM CDT - 06/08/2016 11:20 PM CDT Hospital Encounter [facility] Mark Anthony, Wilbert Coon, DO [address] [address] Diverticulitis of intestine without perforation or abscess without bleeding; Anxiety disorder; Dysuria; Major depressive disorder, single episode (CMS/[facility]) Social History Tobacco Use Types Packs/Day Years Used Date Smoking Tobacco: Never Assessed Sex and Gender Information Value Date Recorded Sex Assigned at Not on file Legal Sex Male 1:40 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[employer] Gender Identity Not on file Sexual Orientation Not on file documented as of this encounter Plan of Treatment Scheduled Procedures Name Priority Associated Diagnoses Date/Ti me COLONOSCOPY Open Access Diverticulitis documented as of this encounter Procedures Procedure Name Priority Date/Time Associated Diagnosis Comments CT ABDOMEN PELVIS WO CONTRAST Routine 06/08/2016 8:46 PM CDT BLOOD GLUCOSE Routine 06/08/2016 8:01 PM CDT PLASMA LIPASE Routine 06/08/2016 7:49 PM CDT PLASMA COMPREHENSIVE METABOLIC PANEL Routine 06/08/2016 7:49 PM CDT BLOOD CELL COUNT (CBC), MORPHOLOGIC EXAM Routine 06/08/2016 7:49 PM CDT URINALYSIS Routine 06/08/2016 7:33 PM CDT ELECTROCARDIOGRAPHY (ECG) 06/08/2016 DISCHARGE LABORATORY CUMULATIVE REPORT 06/08/2016 documented in this encounter Results * CT Abdomen Pelvis WO Contrast (06/08/2016 8:46 PM CDT) Anatomical Region Laterality Modality Body N/A Computed Tomogra phy 06/08/2016 8:46 PM CDT Narrative 06/08/2016 9:[address] abdomen and CT pelvis without contrast. HISTORY: Abdominal pain with history of diverticulitis. ??Anxiety and depression. ??Prior cholecystectomy. Axial images are obtained in helical fashion through the abdomen and pelvis without contrast. ??Comparison is made to prior study 08/04/2010. FINDINGS: There is mild pleural thickening in both lung bases with probable left basilar atelectasis. Evaluation of abdominal and pelvic viscera limited in the absence of contrast. ??Liver and spleen are unremarkable. ??Patient has undergone cholecystectomy. ??Adrenals are normal in size. ??There are several medullary 1 to 2 mm stones in both kidneys without acute obstruction or hydronephrosis. ??Ureters appear normal in caliber to the level of the bladder. ??Bladder is unremarkable. Pancreas appears normal. ??There are scattered colonic diverticuli. ?? Near the left iliac crest there is a segment of large colon demonstrating mucosal wall thickening and some adjacent pericolonic inflammatory change. ??A similar appearance was noted on prior CT study from 1999 10 o'clock 2B diverticulitis. ??The above pattern would be more consistent with a colitis or less likely colonic malignancy. ??Mid and distal sigmoid are normal in caliber to the rectum. ??Mild prostatic hypertrophy. ??There are bilateral inguinal hernias containing fat. IMPRESSION: 1. ??There is a segment of distal descending colon/proximal sigmoid colon demonstrating mild mucosal wall thickening and some adjacent pericolonic inflammatory change. ??A similar pattern was noted on prior CT study thought to be diverticulitis. ??The uniform mucosal wall thickening would be more consistent with a colitis of infectious or inflammatory etiology. ??Abscess is not identified. 2. ??Medullary stones not obstructing noted in both kidneys. 3. ??Bilateral inguinal hernias containing fat. Electronically signed by: Mary Hendrix M.D. Radiologist: MARY HENDRIX MD ?? Attending: ??UNKNOWN, NOTINFILE ?? Requesting: MARK ANTHONY, WILBERT Figueroa DO Requesting Fax: ?? Requesting ID: [id number] Attending Fax: ?? Attending ID: ?? [id number] Completed Time: ?? 06/08/2016 8:46 PM Dictated Time: ?N/A Transcribed Time: 06/08/2016 9:11 PM Signed by: ?MARY HENDRIX MD ?? on 06/08/2016 9:11 PM Report To 1 ID: Report To 1 Name: , Report To 1 FAX: Report To 2 ID: Report To 2 Name: , Report To 2 FAX: Report To 3 ID: Report To 3 Name: , Report To 3 FAX: NextGen Order #: Procedure Note Provider, MD Rachael - 01/05/[address] pelvis without contrast. HISTORY: Abdominal pain with history of diverticulitis. Anxiety and depression. Prior cholecystectomy. Axial images are obtained in helical fashion through the abdomen and pelvis without contrast. Comparison is made to prior study 08/04/2010. FINDINGS: There is mild pleural thickening in both lung bases with probable left basilar atelectasis. Evaluation of abdominal and pelvic viscera limited in the absence of contrast. Liver and spleen are unremarkable. Patient has undergone cholecystectomy. Adrenals are normal in size. There are several medullary 1 to 2 mm stones in both kidneys without acute obstruction or hydronephrosis. Ureters appear normal in caliber to the level of the bladder. Bladder is unremarkable. Pancreas appears normal. There are scattered colonic diverticuli. Near the left iliac crest there is a segment of large colon demonstrating mucosal wall thickening and some adjacent pericolonic inflammatory change. A similar appearance was noted on prior CT study from 1999 10 o'clock 2B diverticulitis. The above pattern would be more consistent with a colitis or less likely colonic malignancy. Mid and distal sigmoid are normal in caliber to the rectum. Mild prostatic hypertrophy. There are bilateral inguinal hernias containing fat. IMPRESSION: 1. There is a segment of distal descending colon/proximal sigmoid colon demonstrating mild mucosal wall thickening and some adjacent pericolonic inflammatory change. A similar pattern was noted on prior CT study thought to be diverticulitis. The uniform mucosal wall thickening would be more consistent with a colitis of infectious or inflammatory etiology. Abscess is not identified. 2. Medullary stones not obstructing noted in both kidneys. 3. Bilateral inguinal hernias containing fat. Electronically signed by: Mary Hendrix M.D. Radiologist: MARY HENDRIX MD Attending: UNKNOWN, NOTINFILE Requesting: WILBERT HOPSON DO Requesting Requesting ID: [id number] Attending Attending ID: [id number] Completed Time: 06/08/2016 8:46 PM Dictated Time: N/A Transcribed Time: 06/08/2016 9:11 PM Signed by: MARY HENDRIX MD on 06/08/2016 9:11 PM Report To 1 ID: Report To 1 Name: , Report To 1 FAX: Report To 2 ID: Report To 2 Name: , Report To 2 FAX: Report To 3 ID: Report To 3 Name: , Report To 3 FAX: NextGen Order #: Historical Provider IMG CT PROCEDURES Final R esult * Blood glucose (06/08/2016 8:01 PM CDT) [facility] Glucose, POC, bld 78 70 - 140 mg/dl CDR HISTORICAL RESULTS Blood specimen (specimen) 06/08/2016 8:01 PM CDT Wilbert Hopson DO LAB BLOOD ORDERABLES Final Res ult CDR HISTORICAL RESULTS * (ABNORMAL) Blood cell count (CBC), morphologic exam (06/08/2016 7:49 PM CDT) [facility] WBC 6.6 3.8 - 9.9 K/cumm CDR HISTORICAL RESULTS RDW 43.7 35.7 - 48.2 fl CDR HISTORICAL RESULTS RBC 5.60 4.30 - 5.80 M/cumm CDR HISTORICAL RESULTS Rdw 18.4(H) 11.1 - 14.1 % CDR HISTORICAL RESULTS Hgb 11.3(L) 13.0 - 17.5 g/dl CDR HISTORICAL RESULTS Platelets 232 150 - 400 K/cumm CDR HISTORICAL RESULTS Hct 38.8(L) 38.9 - 50.3 % CDR HISTORICAL RESULTS MPV 9.2 9.1 - 12.3 fl CDR HISTORICAL RESULTS MCV 69.3(L) 81.3 - 96.4 fl CDR HISTORICAL RESULTS Neutrophils 64.2 44.0 - 80.0 % CDR HISTORICAL RESULTS MCH 20.2(L) 27.1 - 33.3 pg CDR HISTORICAL RESULTS Lymphocytes 27.6 13.0 - 44.0 % CDR HISTORICAL RESULTS MCHC 29.1(L) 32.3 - 35.7 g/dl CDR HISTORICAL RESULTS Monos 6.3 2.0 - 11.0 % CDR HISTORICAL RESULTS Eosinophils 1.2 0.0 - 6.0 % CDR HISTORICAL RESULTS Basophils 0.5 0.0 - 3.0 % CDR HISTORICAL RESULTS Immature granulocytes 0.2 0.0 - 1.0 % CDR HISTORICAL RESULTS NRBC 0.0 0.0 - 0.2 % CDR HISTORICAL RESULTS Neutrophils, abs 4.2 1.7 - 6.5 K/cumm CDR HISTORICAL RESULTS Lymphocytes, abs 1.8 0.8 - 3.3 K/cumm CDR HISTORICAL RESULTS Monocytes, absolute 0.4 0.2 - 0.8 K/cumm CDR HISTORICAL RESULTS Eosinophils, abs 0.1 0.0 - 0.5 K/cumm CDR HISTORICAL RESULTS Basophils, abs 0.0 0.0 - 0.1 K/cumm CDR HISTORICAL RESULTS Immature granulocyte, abs 0.0 0.0 - 0.1 K/cumm CDR HISTORICAL RESULTS NRBC, abs 0.00 0.00 - 0.01 K/cumm CDR HISTORICAL RESULTS Blood specimen (specimen) 06/08/2016 7:49 PM CDT us Wilbert Coon Mark Anthony DO LAB BLOOD ORDERABLES Final Res ult CDR HISTORICAL RESULTS * (ABNORMAL) Plasma comprehensive metabolic panel (06/08/2016 7:49 PM CDT) Sodium 138 136 - 146 mmol/L CDR HISTORICAL RESULTS K, pl 3.7 3.3 - 4.9 mmol/L CDR HISTORICAL RESULTS Chloride 104 98 - 108 mmol/L CDR HISTORICAL RESULTS CO2 28 22 - 33 mmol/L CDR HISTORICAL RESULTS BUN 7 7 - 18 mg/dl CDR HISTORICAL RESULTS Glucose 97 70 - 140 mg/dl CDR HISTORICAL RESULTS Comment: Glucose is assumed to be non-fasting. ?? Fasting Glucose normal ranges are: 0 days - 2 months: ? 40 mg/dL - 100 mg/dL 2 months - 999 years: ?70 mg/dL - 99 mg/dL Creatinine 0.88 0.50 - 1.50 mg/dl CDR HISTORICAL RESULTS eGFR >60 ml/min/1.7 3 m2 CDR HISTORICAL RESULTS Comment: GFR Reference Range: = > 60 mL/min/1.73 m2 This result has been calculated assuming the patient is Non-. ??If the patient is , please multiply this result by 1.21. The GFR value is not recommended for medication dose adjustment for renal function, creatinine clearance values should be used. Calcium 9.3 8.5 - 10.5 mg/dl CDR HISTORICAL RESULTS Bilirubin 1.5(H) 0.1 - 1.2 mg/dl CDR HISTORICAL RESULTS Protein, pl 7.8 6.0 - 8.5 g/dl CDR HISTORICAL RESULTS Alb 4.0 3.4 - 5.0 g/dl CDR HISTORICAL RESULTS Alk phos 62 38 - 126 IUnits/L CDR HISTORICAL RESULTS ALT 40 17 - 63 IUnits/L CDR HISTORICAL RESULTS AST 47(H) 15 - 41 IUnits/L CDR HISTORICAL RESULTS Plasma 06/08/2016 7:4 9 PM CDT us Wilbert Hopson DO LAB BLOOD ORDERABLES Final Res ult Performing Organization Address [facility] Co de Phone Number CDR HISTORICAL RESULTS * Plasma lipase (06/08/2016 7:49 PM CDT) Lip 28 8 - 57 Units/L CDR HISTORICAL RESULTS Plasma 06/08/2016 7:49 PM CDT us Wilbert Hopson DO LAB BLOOD ORDERABLES Final Res ult Performing Organization Address [facility]/ZIP Co de Phone Number CDR HISTORICAL RESULTS * Urinalysis (06/08/2016 7:33 PM CDT) Color, ur Yellow Colorless,St raw,Yellow CDR HISTORICAL RESULTS Clarity, ur Clear Clear CDR HIST ORICAL RESULTS Specific gravity, ur 1.010 1.005 - 1.030 CDR HISTORICAL RESULTS pH, ur 7.0 5.0 - 8.0 CDR HISTOR ICAL RESULTS Leukocyte esterase, ur Negative Negative rafat/mcl CDR HISTORICAL RESULTS Nitrites, ur Negative Negative CDR HIS TORICAL RESULTS Protein, ur Negative Negative mg/dl CDR HISTORICAL RESULTS Glucose, ur, quant Normal Normal mg/dl CDR HISTORICAL RESULTS Ketones, ur, quant Negative Negative mg/dl CDR HISTORICAL RESULTS Urobilinogen, quant, ur Normal Normal mg/dl CDR HISTORICAL RESULTS Bilirubin, ur Negative Negative mg/dl CDR HISTORICAL RESULTS U Blood Negative Negative CDR HISTOR ICAL RESULTS Urine 06/08/2016 7:33 PM CDT Wilbert Hopson DO LAB BLOOD ORDERABLES Final Res ult CDR HISTORICAL RESULTS * DISCHARGE LABORATORY CUMULATIVE REPORT (06/08/2016) Narrative 06/08/2016 Ordered by an unspecified provider. [facility] Provider LAB BLOOD ORDERABLES Laura l Result * ELECTROCARDIOGRAPHY (ECG) (06/08/2016) Narrative 06/08/2016 Ordered by an unspecified provider. Historical Provider ECG ORDERABLES Final Res ult documented in this encounter Visit Diagnoses Diagnosis Diverticulitis of intestine without perforation or abscess without bleeding Anxiety disorder Anxiety state, unspecified Dysuria Major depressive disorder, single episode Major depressive disorder, single episode, unspecified documented in this encounter
--- OUTSIDE RECORDS SUMMARY | 2024-09-10 04:13 | XMS_ITS | Encounter Summary ---
[facility] Team Providers Care Real Estate Appraiser Supervisor Name Role Phone Unavailable Primary Care Provider Unavailabl e Encounter Details Date Type Department Care Team (Latest Contact Info) Description 04/24/2016 4:52 PM CDT - 04/24/2016 7:09 PM CDT Hospital Encounter [facility] Hilaria, Jenaro Cam, DO [address] [place] [address] Anxiety disorder; Encounter for issue of repeat prescription; Homelessness Social History Tobacco Use Types Packs/Day Years Used Date Smoking Tobacco: Never Assessed Sex and Gender Information Value Date Recorded Sex Assigned at Not on file 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[employer] Gender Identity Not on file Sexual Orientation Not on file documented as of this encounter Plan of Treatment Scheduled Procedures Name Priority Associated Diagnoses Date/Ti me COLONOSCOPY Open Access Diverticulitis documented as of this encounter Procedures Procedure Name Priority Date/Time Associated Diagnosis Comments BLOOD GLUCOSE Routine 04/24/2016 6:58 PM CDT DISCHARGE LABORATORY CUMULATIVE REPORT 04/24/2016 documented in this encounter Results * Blood glucose (04/24/2016 6:58 PM CDT) Glucose, POC, bld 96 70 - 140 mg/dl CDR HISTORICAL RESULTS Blood specimen (specimen) 04/24/2016 6:58 PM CDT us Historical Provider LAB BLOOD ORDERABLES Laura la Result CDR HISTORICAL RESULTS * DISCHARGE LABORATORY CUMULATIVE REPORT (04/24/2016) Narrative 04/24/2016 Ordered by an unspecified provider. us Historical Provider LAB BLOOD ORDERABLES Laura l Result documented in this encounter Visit Diagnoses Diagnosis Anxiety disorder Anxiety state, unspecified Encounter for issue of repeat prescription Homelessness Lack of housing documented in this encounter
--- OUTSIDE RECORDS SUMMARY | 2024-09-10 04:13 | XMS_ITS | Encounter Summary ---
Author Organization [facility] Healthcare Address [address] [place] [address] Care Team Providers Care Dockmaster Name Role Phone Unavailable Primary Care Provider Unavailabl e Encounter Details Date Type Department Care Team (Latest Contact Info) Description 10/09/2016 4:31 AM CRUDE UNIT OPERATOR - 10/09/2016 7:39 AM CRUDE UNIT OPERATOR Hospital Encounter [facility] Miguel Sifuentes, DO [address] [facility] [place] [address] Other specified disorders of teeth and supporting structures; Hypochondriasis; Anxiety disorder; Essential (primary) hypertension; Type 2 diabetes mellitus without complications (CMS/HCC); Acquired absence of other specified parts of digestive tract Social History Tobacco Use Types Packs/Day Years Used Date Smoking Tobacco: Never Assessed Sex and Gender Information Value Date Recorded Sex Assigned at Not on file Legal Sex Male 1:40 AM CRUDE UNIT OPERATOR Gender Identity Not on file Sexual Orientation Not on file documented as of this encounter Last Filed Vital Signs Vital Sign Reading Time Taken Comments Blood Pressure 152/99 10/09/2016 4:36 AM CRUDE UNIT OPERATOR Pulse 77 10/09/2016 4:36 AM CRUDE UNIT OPERATOR Temperature 36.5 ??C (97.7 ??F) 10/09/2016 4:36 AM CRUDE UNIT OPERATOR Respiratory Rate - - Oxygen Saturation 97% 10/09/2016 4:36 AM CRUDE UNIT OPERATOR Inhaled Oxygen Concentration - - Weight 128.1 kg (282 lb 6.6 oz) 10/09/2016 4:36 AM CRUDE UNIT OPERATOR Height 188 cm (6' 2 ) 10/09/2016 4:36 AM CRUDE UNIT OPERATOR Body Mass Index 36.26 10/09/2016 4:36 AM CRUDE UNIT OPERATOR documented in this encounter Medications at Time of Discharge promethazine (PHENERGAN) 25 mg tablet Take 25 mg by mouth every 6 hours. 07/17/2016 10/17/2020 documented as of this encounter Plan of Treatment Scheduled Procedures Name Priority Associated Diagnoses Date/Ti me COLONOSCOPY Open Access Diverticulitis documented as of this encounter Procedures Procedure Name Priority Date/Time Associated Diagnosis Comments TNI WITH LIPID PANEL Routine 10/09/2016 6:23 AM CRUDE UNIT OPERATOR HEMOGRAM WITH MANUAL DIFFERENTIAL Routine 10/09/2016 6:23 AM CRUDE UNIT OPERATOR SLIDE REVIEW - PATHOLOGIST Routine 10/09/2016 6:23 AM CRUDE UNIT OPERATOR COMPREHENSIVE METABOLIC PANEL Routine 10/09/2016 6:23 AM CRUDE UNIT OPERATOR documented in this encounter Results * Slide review - pathologist (10/09/2016 6:23 AM CRUDE UNIT OPERATOR) Diff Slide Review SLIDE REVIEW Comment: Pathologist Review of Peripheral Blood Smear ?? Pathologist Review of Peripheral Blood Smear ?? Pathologist Review of Peripheral Blood Smear Hem Pathologist Commnt Comment:Agree with different ial/morphology. Path Cons Sign Path Pathologist Comment:Reviewed by Shawanda benitez M.D. 10/09/2016 6:23 AM CRUDE UNIT OPERATOR 10/09/2016 6:37 AM CRUDE UNIT OPERATOR Balta Hurt LAB BLOOD ORDERABLES Fi nal Result [facility] HISTORICAL RESULTS * (ABNORMAL) Hemogram with manual differential (10/09/2016 6:23 AM CRUDE UNIT OPERATOR) WBC 6.0 4.6 - 10.2 x10 3/ul RBC 5.87(H) 4.11 - 5.71 x10 6/ul Hemoglobin 11.6(L) 13.0 - 17.0 g/dl 10/09/2016 6:48 AM CRUDE UNIT OPERATOR [facility] [employer] HISTORICAL RESULTS Hct 39.8 38.2 - 48.5 % 10/09/2016 6:48 AM [facility] [employer] [facility] RES[facility] MCV 67.8(L) 80.0 - 97.0 fl 10/09/2016 6:48 AM [facility] [employer] [facility] H[facility]ORICAL RESULTS MCH 19.8(L) 27.0 - 31.2 pg 10/09/2016 6:48 AM [facility] [employer] [facility] H[facility] RESULTS MCHC 29.1(L) 31.8 - 35.4 g/dl 10/09/2016 6:48 AM CRUDE UNIT OPERATOR [facility] [employer] HISTORICAL RESULTS RDW 19.1(H) 11.6 - 14.8 % 10/09/2016 6:48 AM CRUDE UNIT OPERATOR [facility] [employer] HISTORICAL RESULTS Plt Count 212 124 - 400 x10 3/ul 10/09/2016 6:48 AM CRUDE UNIT OPERATOR [facility] [employer] HISTORICAL RESULTS MPV 8.9 7.4 - 10.4 fl 10/09/2016 6:48 AM [employer] [facility] [employer] HISTORICAL RESULTS MANUAL DIFF MANUAL DIFF -------- --- 10/09/2016 7:53 AM Suja Juice [facility] [employer] HISTORICAL RESULTS Comment:PATHOLOGIST'S COMMEN TS TO FOLLOW. Neutrophils % (Manual) 70 37 - 80 % 10/09/2016 7:53 AM [employer]ja [employer]ice [facility] [employer] HISTORICAL RESULTS Band Neutrophils % 1 0 - 9 % 2016 7:53 AM Suja Juice [facility] [employer] HISTORICAL RESULTS Lymphocytes % (Manual) 22 10 - 51 % 10/09/2016 7:53 AM Suja [employer]ice [facility] [employer] HISTORICAL RESULTS Atypical Lymphs % 2 0 - 6 % 017 7:53 AM Suja Juice [facility] [employer] HISTORICAL RESULTS Monocytes % (Manual) 2 0 - 12 % 10/09/2016 7:53 AM Suja [employer]ice [facility] [employer] HISTORICAL RESULTS Eosinophils % (Manual) 2 0 - 7 % 10/09/2016 7:53 AM Suja Juice [facility] [employer] HISTORICAL RESULTS Basophils % (Manual) 1 0 - 1 % 10/09/2016 7:53 AM Suja Juice [facility] [employer] HISTORICAL RESULTS ABSOLUTE COUNTS ABSOLUTE COUNTS -------- --- 10/09/2016 7:53 AM Suja Juice [facility] [employer] HISTORICAL RESULTS Abs Neuts cells/mm3 4260 /ul Absolute Neutrophils 4.2 1.7 - 8.7 x10 3/ul Absolute Band Neuts 0.1 0.0 - 0.3 x10 3/ul Absolute Lymphocytes 1.3 0.2 - 4.6 x10 3/ul ATYPICAL LYMPH ABS# 0.1 0 - 0.3 x10 3/ul Absolute Monocytes 0.1 0.1 - 1.5 x10 3/ul Absolute Eosinophils 0.1 0.0 - 0.7 x10 3/ul Absolute Basophils 0.1 0.0 - 0.2 x10 3/ul Nucl RBC Rel Cnt (Man) 1 /100 WBC Platelet Evaluation AGREE AGREE Comment:Slide review of plat elets correlates with instrument count. Hypochromasia 1+ Anisocytosis 1+ Microcytosis 1+ Poikilocytosis 1+ Ovalocytes 1+ 10/09/2016 6:23 AM CRUDE UNIT OPERATOR 10/09/2016 6:37 AM [facility] Narrative [facility] HISTORICAL RESULTS - 10/09/2016 7:53 AM CRUDE UNIT OPERATOR Balta Hurt LAB BLOOD ORDERABLES Fi nal Result [facility] HISTORICAL RESULTS * (ABNORMAL) TNI with LIPID PANEL (10/09/2016 6:23 AM [facility]) Troponin I < 0.300 0.000 - 0.300 ng/mL Comment: Reference using MARCK Chemiluminescence ? Negative: Repeat in 4-6 hours as indicated. Triglycerides 225(H) 0 - 199 mg/dL Comment:12 hr pc highly ivonne mmended for Triglyceride Cholesterol 166 0 - 199 mg/dL Comment: Borderline: ??200-239 High Risk: ?? >239 HDL Cholesterol 20(L) 40 - 60 mg/dL Comment: Major Risk ?< 40 mg/dL Moderate Risk ?40-60 mg/dL Negative Risk ?? > 60 mg/dL LDL Cholesterol, Calc 101 0 - 130 mg/dL Comment:High Risk > 159 mg/d L Cholesterol/HDL Ratio 8.3 Comment: Cholesterol / HDL Ratio 3.5:1 or less is desirable. Cholesterol / HDL Ratio greater than 5:1 is considered higher risk for developing heart disease. 10/09/2016 6:23 AM CRUDE UNIT OPERATOR 10/09/2016 6:37 AM [facility] Balta Hurt LAB BLOOD ORDERABLES Fi nal Result [facility] HISTORICAL RESULTS * (ABNORMAL) Comprehensive metabolic panel (10/09/2016 6:23 AM [facility]) Pathologist [facility] Sodium 140 135 - 145 mmol/L Potassium 3.4 3.3 - 5.1 mmol/L Chloride 99 96 - 108 mmol/L 10/09/2016 7:03 AM [employer] [facility] [employer] [facility] HISTOR[facility] RESULTS Carbon Dioxide 29 22 - 32 mmol/L 10/09/2016 7:03 AM [facility] Anion Gap 12 7 - 16 10/09/2016 7:03 AM [facility] [employer] [facility] Glucose 100 70 - 100 mg/dL 10/09/2016 7:03 AM [address] BUN 8 6 - 20 mg/dL 10/09/2016 7:03 AM [facility] Creatinine 0.8 0.5 - 1.3 mg/dL 10/09/2016 7:03 AM Suja Juice [facility] [employer] [facility] H[facility] RESULTS Comment: NOTE: Estimated GFR (Cockroft-Gault) will NOT be calculated unless patient Height and Weight were entered. Also, Kidney Disease Stage (GFR) and Estimated GFR (Cockroft-Gault) will NOT be calculated if Creatinine result is <0.2. Kidney Disease Stage > 90 mL/MIN 10/09/2016 7:03 AM Suja Juice [facility] [employer] [facility] HISTORICAL RESULTS Comment: NOTE; ??The GFR is [...] or on dialysis @ Est GFR (Cockcroft-G) 168 ml/MIN 10/09/2016 7:03 AM Suja Juice [facility] [employer] [facility] H[facility]ICAL RESULTS Comment: Estimated GFR(Cockroft-Gault)is used to calculate patient medication dosage Calcium 9.2 8.6 - 10.0 mg/dL 10/09/2016 7:03 AM CRUDE UNIT OPERATOR [employer] HISTORICAL RESULTS Total Protein 8.2 6.4 - 8.3 g/dL 10/09/2016 7:03 AM CRUDE UNIT OPERATOR [employer] HISTORICAL RESULTS Albumin 4.4 3.5 - 5.2 g/dL 10/09/2016 7:03 AM CRUDE UNIT OPERATOR [employer] HISTORICAL RESULTS Globulin 3.8(H) 2.3 - 3.5 gm/dL 10/09/2016 7:03 AM CRUDE UNIT OPERATOR [employer] HISTORICAL RESULTS Albumin/Globulin Ratio 1.2 1.1 - 1.8 10/09/2016 7:03 AM CRUDE UNIT OPERATOR [employer] HISTORICAL RESULTS Total Bilirubin 1.6(H) 0.0 - 1.2 mg/dL 10/09/2016 7:03 AM CRUDE UNIT OPERATOR [employer] HISTORICAL RESULTS AST 20 0 - 40 U/L 10/09/2016 7:03 AM CRUDE UNIT OPERATOR [employer] HISTORICAL RESULTS ALT 22 0 - 41 U/L 10/09/2016 7:03 AM CRUDE UNIT OPERATOR [employer] HISTORICAL RESULTS Alkaline Phosphatase 71 40 - 129 U/L 10/09/2016 7:03 AM [facility] [employer] HISTORICAL RESULTS 10/09/2016 6:23 AM CRUDE UNIT OPERATOR 10/09/2016 6:37 AM [facility] Balta Tutu Hurt LAB BLOOD ORDERABLES Fi nal Result [employer] HISTORICAL RESULTS documented in this encounter Visit Diagnoses Diagnosis Other specified disorders of teeth and supporting structures Hypochondriasis Anxiety disorder Anxiety state, unspecified Essential (primary) hypertension Unspecified essential hypertension Type 2 diabetes mellitus without complications (CMS/HCC) (HCC) Acquired absence of other specified parts of digestive tract documented in this encounter
--- OUTSIDE RECORDS SUMMARY | 2024-09-10 04:13 | XMS_ITS | Encounter Summary ---
Author Organization [facility] Care Team Providers Care Amusement Centre Manager Name Role Phone Unavailable Primary Care Provider Unavailabl e Encounter Details Date Type Department Care Team (Latest Contact Info) Description 12/26/2011 5:56 AM CDT - 12/26/2011 10:38 AM CDT Hospital Encounter [facility] Hema Miller, DO [address] [place] [address] Anxiety state; Other depressive disorder; Myalgia and myositis; Other diseases of nasal cavity and sinuses Social History Tobacco Use Types Packs/Day Years Used Date Smoking Tobacco: Never Assessed Sex and Gender Information Value Date Recorded Sex Assigned at Not on file 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
--- OUTSIDE RECORDS SUMMARY | 2024-09-10 04:13 | XMS_ITS | Encounter Summary ---
Author Organization [facility] Healthcare Address [address] [place] [address] Care Team Providers Care Foot Worker Name Role Phone Unavailable Primary Care Provider Unavailabl e Encounter Details Date Type Department Care Team (Latest Contact Info) Description 03/30/2016 10:21 PM CDT - 03/31/2016 12:56 AM CDT Hospital Encounter [facility] Corrina Biggs MD [address] [facility] [place] [address] Intestinal obstruction (CMS/HCC); Constipation; Essential (primary) hypertension; Type 2 diabetes mellitus without complications (CMS/HCC); 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; Personal history of nicotine dependence Social History Tobacco Use Types Packs/Day Years Used Date Smoking Tobacco: Never Assessed Sex and Gender Information Value Date Recorded Sex Assigned at Not on file 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 Gender Identity Not on file Sexual Orientation Not on file documented as of this encounter Last Filed Vital Signs Vital Sign Reading Time Taken Comments Blood Pressure 126/68 03/30/2016 10:22 PM CDT Pulse 78 03/30/2016 10:22 PM CDT Temperature 36.9 ??C (98.4 ??F) 03/30/2016 10:22 PM C DT Respiratory Rate - - Oxygen Saturation 98% 03/30/2016 10:22 PM CDT Inhaled Oxygen Concentration - - Weight 124.7 kg (275 lb) 03/30/2016 10:22 PM CDT Height 188 cm (6' 2 ) 03/30/2016 10:22 PM CDT Body Mass Index 35.31 03/30/2016 10:22 PM CDT documented in this encounter Plan of Treatment Scheduled Procedures Name Priority Associated Diagnoses Date/Ti me COLONOSCOPY Open Access Diverticulitis documented as of this encounter Procedures Procedure Name Priority Date/Time Associated Diagnosis Comments TNI WITH LIPID PANEL Routine 03/30/2016 10:53 PM CDT HEMOGRAM WITH MANUAL DIFFERENTIAL Routine 03/30/2016 10:53 PM CDT SLIDE REVIEW - PATHOLOGIST Routine 03/30/2016 10:53 PM CDT PROTIME-INR Routine 03/30/2016 10:53 PM CDT LIPASE Routine 03/30/2016 10:53 PM CDT COMPREHENSIVE METABOLIC PANEL Routine 03/30/2016 10:[address] ABDOMEN PELVIS WO CONTRAST Routine 03/30/2016 12:00 AM CDT documented in this encounter Results * Slide review - pathologist (03/30/2016 10:53 PM CDT) Diff Slide Review SLIDE REVIEW Comment: Pathologist Review of Peripheral Blood Smear ?? Pathologist Review of Peripheral Blood Smear ?? Pathologist Review of Peripheral Blood Smear Hem Pathologist Commnt Comment:Agree with different ial/morphology. Path Cons Sign Path Pathologist Comment:Reviewed by Skylar Cooper M.D. 03/30/2016 10:5 3 PM CDT 03/30/2016 10:59 PM CDT us Corrina Gibson MD LAB BLOOD ORDERABLES Laura la Result [facility] HISTORICAL RESULTS * (ABNORMAL) Hemogram with manual differential (03/30/2016 10:53 PM CDT) WBC 7.0 4.6 - 10.2 x10 3/ul RBC 6.04(H) 4.11 - 5.71 x10 6/ul Hemoglobin 12.3(L) 13.0 - 17.0 g/dl Hct 40.8 38.2 - 48.5 % MCV 67.5(L) 80.0 - 97.0 fl MCH 20.4(L) 27.0 - 31.2 pg MCHC 30.1(L) 31.8 - 35.4 g/dl RDW 18.5(H) 11.6 - 14.8 % Plt Count 189 124 - 400 x10 3/ul 03/30/2016 11:05 PM [facility]OR[facility] RES[facility] MPV 8.9 7.4 - 10.4 fl 03/30/2016 11:05 PM [facility]OR[facility] RESULTS MANUAL DIFF MANUAL DIFF --------- -- 03/31/2016 2:04 AM [facility] HISTORICAL RESULTS Comment:PATHOLOGIST'S COMMEN TS TO FOLLOW. Neutrophils % (Manual) 79 37 - 80 % 03/31/2016 2:04 AM [facility]ISTOR[facility] Band Neutrophils % 2 0 - 9 % 03/31/2016 2:04 AM [facility] Lymphocytes % (Manual) 11 10 - 51 % 03/31/2016 2:04 AM [facility] Monocytes % (Manual) 5 0 - 12 % 03/31/2016 2:04 AM [facility] Eosinophils % (Manual) 1 0 - 7 % 03/31/2016 2:04 AM CDT [facility] [employer] [facility] Basophils % (Manual) 2(H) 0 - 1 % 03/31/2016 2:04 AM [facility] HISTORICAL RESULTS ABSOLUTE COUNTS ABSOLUTE COUNTS --------- -- Abs Neuts cells/mm3 5670 /ul Absolute Neutrophils 5.5 1.7 - 8.7 x10 3/ul Absolute Band Neuts 0.1 0.0 - 0.3 x10 3/ul Absolute Lymphocytes 0.8 0.2 - 4.6 x10 3/ul Absolute Monocytes 0.4 0.1 - 1.5 x10 3/ul Absolute Eosinophils 0.1 0.0 - 0.7 x10 3/ul Absolute Basophils 0.1 0.0 - 0.2 x10 3/ul Nucl RBC Rel Cnt (Man) 1 /100 WBC Platelet Evaluation AGREE AGREE Comment:Slide review of plat elets correlates with instrument count. Anisocytosis 1+ Microcytosis 1+ Ovalocytes 1+ 03/30/2016 10:5 3 PM CDT 03/30/2016 10:59 PM CDT Narrative [facility] HISTORICAL RESULTS - 03/31/2016 2:04 AM CDT us Corrina Gibson MD LAB BLOOD ORDERABLES Laura la Result [facility] HISTORICAL RESULTS * (ABNORMAL) TNI with LIPID PANEL (03/30/2016 10:53 PM CDT) Pathologist [facility] Troponin I < 0.300 0.000 - 0.300 ng/mL Comment: Reference using MARCK Chemiluminescence ? Negative: Repeat in 4-6 hours as indicated. Triglycerides 194 0 - 199 mg/dL Comment:12 hr pc highly ivonne mmended for Triglyceride Cholesterol 151 0 - 199 mg/dL Comment: Borderline: ??200-239 High Risk: ?? >239 HDL Cholesterol 17(L) 40 - 60 mg/dL Comment: Major Risk ?< 40 mg/dL Moderate Risk ?40-60 mg/dL Negative Risk ?? > 60 mg/dL LDL Cholesterol, Calc 95 0 - 130 mg/dL Comment:High Risk > 159 mg/d L Cholesterol/HDL Ratio 8.9 Comment: Cholesterol / HDL Ratio 3.5:1 or less is desirable. Cholesterol / HDL Ratio greater than 5:1 is considered higher risk for developing heart disease. 03/30/2016 10:5 3 PM CDT 03/30/2016 10:59 PM CDT us Corrina Gibson MD LAB BLOOD ORDERABLES Laura la Result [facility] HISTORICAL RESULTS * Protime-INR (03/30/2016 10:53 PM CDT) [facility] PT 14.2 11.8 - 14.5 SECONDS INR 1.09 0.01 - 5.99 Comment: Recommended Therapeutic range for Oral Anticoagulant Therapy No anti-coagulation therapy ? Normal Range: ?0.8-1.4 Anti-coagulation therapy ? Low intensity therapy ?2.0-3.0 ? High intensity therapy ?? 2.5-3.5 Critical Value ? Greater than or equal to 6.0 Patients should be monitored for serious bleeding. ?? 03/30/2016 10:5 3 PM CDT 03/30/2016 10:59 PM CDT Corrina Gibson MD LAB BLOOD ORDERABLES Laura l Result Performing Organization Address [facility] de Phone Number [facility] HISTORICAL RESULTS * Lipase (03/30/2016 10:53 PM CDT) Lipase 28 13 - 60 U/L 03/30/2016 10:5 3 PM CDT 03/30/2016 10:59 PM CDT Corrina Gibson MD LAB BLOOD ORDERABLES Laura l Result Performing Organization Address [facility] Phone Number [facility] HISTORICAL RESULTS * (ABNORMAL) Comprehensive metabolic panel (03/30/2016 10:53 PM CDT) Sodium 138 135 - 145 mmol/L Potassium 3.3 3.3 - 5.1 mmol/L Chloride 98 96 - 108 mmol/L Carbon Dioxide 28 22 - 32 mmol/L Anion Gap 12 7 - 16 Glucose 148(H) 70 - 100 mg/dL BUN 7 6 - 20 mg/dL Creatinine 0.7 0.5 - 1.3 mg/dL Comment: NOTE: Estimated [...] or on dialysis @ Est GFR (Cockcroft-G) 189 ml/MIN Calcium 8.9 8.6 - 10.0 mg/dL Total Protein 7.8 6.4 - 8.3 g/dL Albumin 4.3 3.5 - 5.2 g/dL Globulin 3.5 2.3 - 3.5 gm/dL Albumin/Globulin Ratio 1.2 1.1 - 1.8 Total Bilirubin 1.1 0.0 - 1.2 mg/dL AST 43(H) 0 - 40 U/L ALT 51(H) 0 - 41 U/L Alkaline Phosphatase 80 40 - 129 U/L 03/30/2016 10:5 3 PM CDT 03/30/2016 10:59 PM CDT Corrina Gibson MD LAB BLOOD ORDERABLES Laura la Result [facility] HISTORICAL RESULTS * CT Abdomen Pelvis WO Contrast (03/30/2016 12:00 AM CDT) Anatomical Region Laterality Modality Body N/A Computed Tomogra phy 03/30/2016 Impressions 03/30/2016 11:31 PM CDT ??Possible sigmoid colonic lesion concerning for neoplasm consider direct visualization ?? THIS IS AN ELECTRONICALLY VERIFIED REPORT 03/30/2016 11:28 PM: ??Callum Flynn M.D. ?? Callum Flynn M.D. GR:gr 11:28 PM 11:28 PM RIL [EOD] Narrative 03/30/2016 11:31 PM CDT EXAMINATION: CT OF THE ABDOMEN AND PELVIS - RENAL STONE PROTOCOL HISTORY: ??Diffuse abdominal pain onset this a.m. with constipation last the 4 days ago COMPARISON: ??04/10/2015 TECHNIQUE: ??Examination performed without intravenous or enteric contrast. 3.0 mm axial images were obtained. ?? FINDINGS: ??The lung bases are ??clear . ?? ABDOMEN: There is focal stricture in the sigmoid colon with colonic wall thickening the appearance is suggestive of either stricture or neoplastic process this appears slightly more prominent than previous direct visualization is recommended. The liver, spleen, pancreas, kidneys, adrenal, and small bowel are normal in appearance. A normal appendix is identified There is no evidence of obstruction or free air. ?? Vessels are normal in caliber. There are no pathologically sized lymph nodes. PELVIS: There is no evidence of free fluid. The bladder and prostate are unremarkable. There is no lymphadenopathy. ?? The osseous structures are unremarkable. ?? Procedure Note Provider, MD Rachael - 01/27/2021 EXAMINATION: CT OF THE ABDOMEN AND PELVIS - RENAL STONE PROTOCOL HISTORY: Diffuse abdominal pain onset this a.m. with constipation lastthe 4 days ago COMPARISON: 04/10/2015 TECHNIQUE: Examination performed without intravenous or enteric contrast.3.0 mm axial images were obtained. FINDINGS: The lung bases are clear . ABDOMEN: There is focal stricture in the sigmoid colon with colonic wall thickening the appearance is suggestive of either stricture or neoplastic process this appears slightly more prominent than previous direct visualization is recommended. The liver, spleen, pancreas, kidneys,adrenal, and small bowel are normal in appearance. A normal appendix is identified There is no evidence of obstruction or free air. Vessels are normal in caliber. There are no pathologically sized lymphnodes. PELVIS: There is no evidence of free fluid. The bladder and prostate are unremarkable. There is no lymphadenopathy. The osseous structures are unremarkable. IMPRESSION: Possible sigmoid colonic lesion concerning for neoplasmconsider direct visualization THIS IS AN ELECTRONICALLY VERIFIED REPORT 03/30/2016 11:28 PM: Callum Flynn M.D. Callum Flynn M.D. GR:gr 11:28 PM 11:28 PM RIL [EOD] Corrina Gibson MD IMG CT PROCEDURES Final R esult documented in this encounter Visit Diagnoses Diagnosis Intestinal obstruction (CMS/HCC) (HCC) Unspecified intestinal obstruction Constipation Unspecified constipation Essential (primary) hypertension Unspecified essential hypertension Type 2 diabetes mellitus without complications (CMS/HCC) (HCC) Other fdc (current) drug therapy Personal history of nicotine dependence documented in this encounter
--- OUTSIDE RECORDS SUMMARY | 2024-09-10 04:13 | XMS_ITS | Encounter Summary ---
Author Organization [facility] Healthcare Address [address] [place] [id number] Care Team Providers Care Transition Mgr Name Role Phone Unavailable Primary Care Provider Unavailabl e Encounter Details Date Type Department Care Team (Late st Contact Info) Description 04/10/2015 7:05 PM CDT - 04/10/2015 11:24 PM CDT Hospital Encounter [facility] John Costa MD [address] [facility] [address] [place] [address] Diverticulitis of colon; Anxiety state; Calculus of kidney; Inguinal hernia; Esophageal reflux; Encounter for long-term (current) use of other medications Social History Tobacco Use Types Packs/Day Years Used Date Smoking Tobacco: Never Assessed Sex and Gender Information Value Date Recorded Sex Assigned at Not on file 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 Gender Identity Not on file Sexual Orientation Not on file documented as of this encounter Last Filed Vital Signs Vital Sign Reading Time Taken Comments Blood Pressure 121/77 04/10/2015 7:06 PM CDT Pulse 85 04/10/2015 7:06 PM CDT Temperature 36.7 ??C (98 ??F) 04/10/2015 7:06 PM CDT Respiratory Rate - - Oxygen Saturation 100% 04/10/2015 7:06 PM CDT Inhaled Oxygen Concentration - - Weight 106.6 kg (235 lb) 04/10/2015 7:06 PM CDT Height 188 cm (6' 2 ) 04/10/2015 7:06 PM CDT Body Mass Index 30.17 04/10/2015 7:06 PM CDT documented in this encounter Plan of Treatment Scheduled Procedures Name Priority Associated Diagnoses Date/Ti me COLONOSCOPY Open Access Diverticulitis documented as of this encounter Procedures Procedure Name Priority Date/Time Associated Diagnosis Comments TNI WITH LIPID PANEL Routine 04/10/2015 7:45 PM CDT CBC WITH AUTO DIFFERENTIAL Routine 04/10/2015 7:45 PM CDT TSH Routine 04/10/2015 7:45 PM CDT LIPASE Routine 04/10/2015 7:45 PM CDT AMYLASE Routine 04/10/2015 7:45 PM CDT COMPREHENSIVE METABOLIC PANEL Routine 04/10/2015 7:45 PM CDT URINALYSIS AND REFLEX TO MICROSCOPIC AND CULTURE Routine 04/10/2015 7:[address] ABDOMEN PELVIS WO CONTRAST Routine 04/10/2015 12:00 AM CDT documented in this encounter Results * TSH (04/10/2015 7:45 PM CDT) Pathologist [facility] TSH 1.91 0.27 - 4.20 uIU/mL 04/10/2015 7:45 PM CDT 04/10/2015 7:48 PM CDT Narrative [facility] HISTORICAL RESULTS - 04/10/2015 8:20 PM CDT [facility] BLOOD ORDERABLES Final Re sult [facility] HISTORICAL RESULTS * (ABNORMAL) TNI with LIPID PANEL (04/10/2015 7:45 PM CDT) Pathologist [facility] Troponin I < 0.300 0.000 - 0.300 ng/mL Comment: Reference using MARCK Chemiluminescence ? Negative: Repeat in 4-6 hours as indicated. Triglycerides 176 0 - 199 mg/dL Comment:12 hr pc highly ivonne mmended for Triglyceride Cholesterol 163 0 - 199 mg/dL Comment: Borderline: ??200-239 High Risk: ?? >239 HDL Cholesterol 21(L) 40 - 60 mg/dL Comment: Major Risk ?< 40 mg/dL Moderate Risk ?40-60 mg/dL Negative Risk ?? > 60 mg/dL LDL Cholesterol, Calc 107 0 - 130 mg/dL Comment:High Risk > 159 mg/d L Cholesterol/HDL Ratio 7.8 Comment: Cholesterol / HDL Ratio 3.5:1 or less is desirable. Cholesterol / HDL Ratio greater than 5:1 is considered higher risk for developing heart disease. 04/10/2015 7:45 PM CDT 04/10/2015 7:48 PM CDT [facility] HISTORICAL RESULTS - 04/10/2015 8:14 PM CDT [facility] BLOOD ORDERABLES Final Re sult Performing Organization Address [facility] Co de Phone Number [facility] HISTORICAL RESULTS * Lipase (04/10/2015 7:45 PM CDT) Lipase 56 13 - 60 U/L 04/10/2015 7:45 PM CDT 04/10/2015 7:48 PM CDT [facility] HISTORICAL RESULTS - 04/10/2015 8:14 PM CDT [facility] BLOOD ORDERABLES Final Re sult Performing Organization Address [facility] Co de Phone Number [facility] HISTORICAL RESULTS * (ABNORMAL) Comprehensive metabolic panel (04/10/2015 7:45 PM CDT) Sodium 140 135 - 145 mmol/L 04/10/2015 8:[address] [facility] Potassium 3.5 3.3 - 5.1 mmol/L Chloride 100 96 - 108 mmol/L Carbon Dioxide 27 22 - 32 mmol/L Anion Gap 13 7 - 16 Glucose 94 70 - 100 mg/dL BUN 10 6 - 20 mg/dL Creatinine 0.9 0.5 - 1.3 mg/dL Kidney Disease Stage [...] Bilirubin 1.2 0.0 - 1.2 mg/dL AST 45(H) 0 - 40 U/L ALT 54(H) 0 - 41 U/L Alkaline Phosphatase 82 40 - 129 U/L 04/10/2015 7:45 PM CDT 04/10/2015 7:48 PM CDT Narrative [facility] HISTORICAL RESULTS - 04/10/2015 8:14 PM CDT [place] Jay PA LAB BLOOD ORDERABLES Final Re sult [facility] HISTORICAL RESULTS * (ABNORMAL) CBC with auto differential (04/10/2015 7:45 PM CDT) WBC 5.5 4.6 - 10.2 x10 3/ul RBC 6.09(H) 4.11 - 5.71 x10 6/ul Hemoglobin 13.5 13.0 - 17.0 g/dl Hct 42.7 38.2 - 48.5 % MCV 70.1(L) 80.0 - 97.0 fl MCH 22.2(L) 27.0 - 31.2 pg MCHC 31.6(L) 31.8 - 35.4 g/dl RDW 18.3(H) 11.6 - 14.8 % Plt Count 164 124 - 400 x10 3/ul MPV 8.2 7.4 - 10.4 fl Differential Method AUTOMATED DIFF --------- -- Neut % 64.5 37.0 - 85.0 % Immature Gran % 0.0 0.0 - 3.0 % Lymph % 25.7 5.0 - 45.0 % [place] % 8.0 3.0 - 15.0 % Eos % 1.3 0.0 - 7.0 % Baso % 0.5 0.0 - 2.0 % ABSOLUTE COUNTS ABSOLUTE COUNTS --------- -- Absolute Neuts (auto) 3.5 1.7 - 8.7 x10 3/ul Immature Gran # 0.0 0.0 - 0.3 x10 3/ul Absolute Lymphs (auto) 1.4 0.2 - 4.6 x10 3/ul Absolute Monos (auto) 0.4 0.1 - 1.5 x10 3/ul Absolute Eos (auto) 0.1 0.0 - 0.7 x10 3/ul Absolute Basos (auto) 0.0 0.0 - 0.2 x10 3/ul 04/10/2015 7:45 PM CDT 04/10/2015 7:48 PM CDT [facility] HISTORICAL RESULTS - 04/10/2015 8:21 PM CDT [facility] BLOOD ORDERABLES Final Re sult Performing Organization Address [facility] Co de Phone Number [facility] HISTORICAL RESULTS * Amylase (04/10/2015 7:45 PM CDT) Amylase 71 28 - 100 U/L 04/10/2015 7:45 PM CDT 04/10/2015 7:48 PM CDT [facility] HISTORICAL RESULTS - 04/10/2015 8:14 PM CDT [facility] BLOOD ORDERABLES Final Re sult Performing Organization Address [facility] Co de Phone Number [facility] HISTORICAL RESULTS * (ABNORMAL) Urinalysis reflex to microscopic and culture (04/10/2015 7:35 PM CDT) Ur Collection Type CLEAN CATCH Ur Culture Indicated? C&S NOT INDICATED Urine Color YELLOW YELLOW Urine Clarity CLEAR CLEAR Urine Glucose (UA) NORMAL NORMAL mg/dL Urine Bilirubin NEGATIVE NEGATIVE mg/dl Urine Ketones 5(H) NEGATIVE mg/dL Ur Specific [place] 1.019 1.005 - 1.025 Urine Blood NEGATIVE NEGATIVE mg/dl Urine pH 6.0 5.0 - 8.0 Urine Protein 10(H) NEGATIVE mg/dL Urine Urobilinogen NORMAL NORMAL mg/dL Urine Nitrite NEGATIVE NEGATIVE Ur Leukocyte Esterase 25(H) NEGATIVE Arlen/ul Ur Microscopic Review Indicated or Ordered Urine RBC 3 0 - 2 /HPF Urine WBC <1 0 - 2 /HPF Urine Mucus Rare /LPF Ur Squamous Epith Cells Rare /HPF 04/10/2015 7:35 PM T 04/10/2015 8:05 PM T Narrative [facility] HISTORICAL RESULTS - 04/10/2015 8:20 PM T us [facility] MICROBIOLOGY - GENERAL OR DERABLES Final Result [facility] HISTORICAL RESULTS * CT Abdomen Pelvis WO Contrast (04/10/2015 12:00 AM CDT) Anatomical Region Laterality Modality Body N/A Computed Tomogra phy 04/10/2015 Impressions 04/10/2015 11:13 PM CDT ??1. ??Acute sigmoid diverticulitis and/or colitis. ??Persistent circumferential sigmoid wall thickening, of uncertain etiology. ??A benign chronic diverticular stricture or potential neoplasm could have this appearance. ??Endoscopic evaluation may be indicated. 2. ??Bilateral non-obstructing nephroliths. 3. ??A fat-containing bilateral inguinal hernias with no bowel involvement. THIS IS AN ELECTRONICALLY VERIFIED REPORT 04/10/2015 11:09 PM: ??Raza Mondragon M.D. Raza Mondragon M.D. RN:rn 11:09 PM 11:09 PM NOR [EOD] Narrative 04/10/2015 11:[address] ABDOMEN AND PELVIS WITHOUT CONTRAST HISTORY: ??Left lower quadrant pain. FINDINGS: ??CT the abdomen and pelvis was performed without contrast material. ?? There is prior exam from 12/11/2014. The area of previously noted marked wall thickening of the sigmoid colon is again noted, with surrounding inflammatory stranding. ??There are diverticula in this region. ??This is likely acute diverticulitis with chronic diverticular stricture, although malignancy is not excluded on imaging basis, as previously discussed. ??If not already performed, endoscopic evaluation is recommended. ?? There is no bowel obstruction, pneumatosis or free air. ??There is no free fluid or abscess. ??There is moderate diffuse hepatic steatosis. ??The gallbladder surgically absent. ??The spleen is not enlarged. ??The pancreas and adrenal glands are unremarkable. ??There are non-obstructing bilateral nephroliths. ??No obstructing urinary tract calculi or collecting system dilatation is seen. ??Urinary bladder is collapsed. ??Prostate and seminal vesicles are unremarkable. ??Fat-containing inguinal hernias are noted with no bowel involvement. ??There is no abdominal aortic aneurysm. ??There is stable mild spondylosis of the lumbar spine. ??There are no fractures. Procedure Note Provider, MD Rachael - 01/27/2021 CT ABDOMEN AND PELVIS WITHOUT CONTRAST HISTORY: Left lower quadrant pain. FINDINGS: CT the abdomen and pelvis was performed without contrastmaterial. There is prior exam from 12/11/2014. The area of previously noted marked wall thickening of the sigmoid colonis again noted, with surrounding inflammatory stranding. There arediverticula in this region. This is likely acute diverticulitis with chronicdiverticular stricture, although malignancy is not excluded on imaging basis, aspreviously discussed. If not already performed, endoscopic evaluation isrecommended. There is no bowel obstruction, pneumatosis or free air. There is no free fluid or abscess. There is moderate diffuse hepatic steatosis. The gallbladder surgically absent. The spleen is not enlarged. The pancreasand adrenal glands are unremarkable. There are non-obstructing bilateral nephroliths. No obstructing urinary tract calculi or collecting system dilatation is seen. Urinary bladder is collapsed. Prostate and seminal vesicles are unremarkable. Fat-containing inguinal hernias are noted withno bowel involvement. There is no abdominal aortic aneurysm. There isstable mild spondylosis of the lumbar spine. There are no fractures. IMPRESSION: 1. Acute sigmoid diverticulitis and/or colitis. Persistent circumferential sigmoid wall thickening, of uncertain etiology. A benign chronic diverticular stricture or potential neoplasm could have this appearance. Endoscopic evaluation may be indicated. 2. Bilateral non-obstructing nephroliths. 3. A fat-containing bilateral inguinal hernias with no bowelinvolvement. THIS IS AN ELECTRONICALLY VERIFIED REPORT 04/10/2015 11:09 PM: Raza Mondragon M.D. Raza Mondragon M.D. RN:rn 11:09 PM 11:09 PM NOR [EOD] John Brady MD IMG CT PROCEDURES Final Re sult documented in this encounter Visit Diagnoses Diagnosis Diverticulitis of colon Diverticulitis of colon (without mention of hemorrhage) Anxiety state Anxiety state, unspecified Calculus of kidney Inguinal hernia Inguinal hernia without mention of obstruction or gangrene, unilateral or unspecified, (not specified as recurrent) Esophageal reflux Encounter for long-term (current) use of other medications documented in this encounter
--- OUTSIDE RECORDS SUMMARY | 2024-09-10 04:13 | XMS_ITS | Encounter Summary ---
Author Organization [facility] Healthcare Address [address] [place] [address] Care Team Providers Care Adon Name Role Phone Unavailable Primary Care Provider Unavailabl e Encounter Details Date Type Department Care Team (Latest Contact Info) Description 12/11/2014 7:38 AM CDT - 12/11/2014 9:53 AM CDT Hospital Encounter [facility] Abdominal pain, left lower quadrant; Other acute pain; Other chronic nonalcoholic liver disease; Calculus of kidney; Splenomegaly; Encounter for long-term (current) use of other medications Social History Tobacco Use Types Packs/Day Years Used Date Smoking Tobacco: Never Assessed Sex and Gender Information Value Date Recorded Sex Assigned at Not on file 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 Gender Identity Not on file Sexual Orientation Not on file documented as of this encounter Last Filed Vital Signs Vital Sign Reading Time Taken Comments Blood Pressure 129/80 12/11/2014 7:42 AM CDT Pulse 88 12/11/2014 7:42 AM CDT Temperature 36.9 ??C (98.4 ??F) 12/11/2014 7:42 AM CD T Respiratory Rate - - Oxygen Saturation - - Inhaled Oxygen Concentration - - Weight 127.9 kg (282 lb) 12/11/2014 7:42 AM CDT Height 188 cm (6' 2 ) 12/11/2014 7:42 AM CDT Body Mass Index 36.21 12/11/2014 7:42 AM CDT documented in this encounter Plan of Treatment Scheduled Procedures Name Priority Associated Diagnoses Date/Ti me COLONOSCOPY Open Access Diverticulitis documented as of this encounter Procedures Procedure Name Priority Date/Time Associated Diagnosis Comments CT HEAD WO CONTRAST Routine 12/11/2014 1 2:[address] ABDOMEN PELVIS WO CONTRAST Routine 12/11/2014 12:00 AM CDT documented in this encounter Results * CT Abdomen Pelvis WO Contrast (12/11/2014 12:00 AM CDT) Anatomical Region Laterality Modality Body N/A Computed Tomogra phy 12/11/2014 Impressions 12/11/2014 9:23 AM CDT ??1. ??Persistent mural wall thickening of the sigmoid colon, correlation with colonoscopy is needed as persistence raises suspicion for possible neoplasm. 2. ??Proximal to the mural thickening there is moderate fecal material in the colon. 3. ??Hepatic steatosis and splenomegaly. 4. ??Nonobstructing renal calculi. 5. ??Additional unchanged findings as described above. THIS IS AN ELECTRONICALLY VERIFIED REPORT 12/11/2014 9:19 AM: ??Michael Jiang M.D. Michael Jiang M.D. CH:beth 09:19 AM 09:19 AM [facility] [EOD] Narrative 12/11/2014 9:23 AM CDT EXAMINATION: ??CT abdomen pelvis without contrast. HISTORY: ??Abdominal pain left lower quadrant. ??Status post cholecystectomy, prior colitis. TECHNIQUE: ??Noncontrast CT images were obtained through the abdomen and pelvis. COMPARISON: ??08/15/2014. FINDINGS: ??No pleural effusion is seen. ??The hepatic dome is not fully imaged. Absence of intravenous contrast decreases sensitivity for detection of solid visceral lesions. ??For noncontrast technique, no focal hepatic lesions are identified where imaged. ??Status post cholecystectomy. Liver appears diffusely low in attenuation characteristic of hepatic steatosis. ??The spleen is enlarged, 17 cm craniocaudal dimension. In the interpolar region right kidney there is a nonobstructing 0.2 cm calculus (series 2 image 58). ??In the upper pole left kidney a nonobstructing 0.4 cm calculus (image 45). No calculi are identified along the course of either ureter. Areas significant neural wall thickening and prominent soft tissue density is seen of the sigmoid colon (series 2 image 115) at the same location as the prior examination. ??Correlation with colonoscopy should be made. A few adjacent colonic diverticula are seen without acute inflammation. ?? Proximal to the radial wall thickening there is a moderate amount of fecal material in the colon. ??No evidence of bowel obstruction. ??A normal appendix is identified as seen on series 2 image 91 - 103. Abdominal aorta appears nonaneurysmal. ??No pathologic abdominal lymphadenopathy is identified. ??No free air or pneumatosis is seen. Pelvis: ??Bilateral fat containing inguinal hernias are noted. ??Urinary bladder is decompressed. ??Persistent anterior tethering of the urinary bladder which appears unchanged. ??Prostate gland is grossly unremarkable. ??No pathologic lymphadenopathy is seen. Bone windows demonstrate no acute or aggressive osseous abnormality. Procedure Note Provider, MD Rachael - 01/27/2021 EXAMINATION: CT abdomen pelvis without contrast. HISTORY: Abdominal pain left lower quadrant. Status postcholecystectomy, prior colitis. TECHNIQUE: Noncontrast CT images were obtained through the abdomen andpelvis. COMPARISON: 08/15/2014. FINDINGS: No pleural effusion is seen. The hepatic dome is not fullyimaged. Absence of intravenous contrast decreases sensitivity for detection ofsolid visceral lesions. For noncontrast technique, no focal hepatic lesions are identified where imaged. Status post cholecystectomy. Liver appears diffusely low in attenuation characteristic of hepatic steatosis. The spleen is enlarged, 17 cm craniocaudal dimension. In the interpolar region right kidney there is a nonobstructing 0.2 cm calculus (series 2 image 58). In the upper pole left kidney anonobstructing 0.4 cm calculus (image 45). No calculi are identified along the course of either ureter. Areas significant neural wall thickening and prominent soft tissue densityis seen of the sigmoid colon (series 2 image 115) at the same location as the prior examination. Correlation with colonoscopy should be made. A few adjacent colonic diverticula are seen without acute inflammation. Proximal to the radial wall thickening there is a moderate amount of fecal material in the colon. No evidence of bowel obstruction. A normalappendix is identified as seen on series 2 image 91 - 103. Abdominal aorta appears nonaneurysmal. No pathologic abdominal lymphadenopathy is identified. No free air or pneumatosis is seen. Pelvis: Bilateral fat containing inguinal hernias are noted. Urinarybladder is decompressed. Persistent anterior tethering of the urinary bladderwhich appears unchanged. Prostate gland is grossly unremarkable. No pathologic lymphadenopathy is seen. Bone windows demonstrate no acute or aggressive osseous abnormality. IMPRESSION: 1. Persistent mural wall thickening of the sigmoid colon, correlation with colonoscopy is needed as persistence raises suspicion for possible neoplasm. 2. Proximal to the mural thickening there is moderate fecal material inthe colon. 3. Hepatic steatosis and splenomegaly. 4. Nonobstructing renal calculi. 5. Additional unchanged findings as described above. THIS IS AN ELECTRONICALLY VERIFIED REPORT 12/11/2014 9:19 AM: Michael Jiang M.D. Michael Jiang M.D. CH:beth 09:19 AM 09:19 AM [facility] [EOD] us Historical Provider MD K[facility] CT PROCEDURES Final R esult * CT Head WO Contrast (12/11/2014 12:00 AM CDT) Anatomical Region Laterality Modality Head and Neck N/A Computed Tomogra phy 12/11/2014 Impressions 12/11/2014 9:16 AM CDT ??No evidence of an acute intracranial abnormality. THIS IS AN ELECTRONICALLY VERIFIED REPORT 12/11/2014 9:13 AM: ??Michael Jiang M.D. Michael Jiang M.D. CH: 09:13 AM 09:13 AM [facility] [EOD] Narrative 12/11/2014 9:16 AM CDT EXAMINATION: ??CT head without contrast. HISTORY: ??Dizziness, frontal headache. TECHNIQUE: ??Noncontrast CT images were obtained through the head. COMPARISON: ??05/09/2012. FINDINGS: ??No acute intracranial hemorrhage is identified. ??No extra-axial fluid collection, mass, or mass effect is seen. ??No evidence of sulcal effacement. ??There is no evidence of hydrocephalus. ??A right maxillary mucous retention cyst or polyp is noted. ??Mastoid air cells are predominantly clear. ?? Minimal mucosal thickening in the left ethmoid air cells. ??No acute skull base or calvarial abnormality. Procedure Note Provider, Rachael, - 01/27/2021 EXAMINATION: CT head without contrast. HISTORY: Dizziness, frontal headache. TECHNIQUE: Noncontrast CT images were obtained through the head. COMPARISON: 05/09/2012. FINDINGS: No acute intracranial hemorrhage is identified. No extra-axial fluid collection, mass, or mass effect is seen. No evidence of sulcal effacement. There is no evidence of hydrocephalus. A right maxillarymucous retention cyst or polyp is noted. Mastoid air cells are predominantlyclear. Minimal mucosal thickening in the left ethmoid air cells. No acute skullbase or calvarial abnormality. IMPRESSION: No evidence of an acute intracranial abnormality. THIS IS AN ELECTRONICALLY VERIFIED REPORT 12/11/2014 9:13 AM: Michael Jiang M.D. Michael Jiang M.D. CH:beth 09:13 AM 09:13 AM [facility] [EOD] Historical Provider MD KING CT PROCEDURES Final R esult documented in this encounter Visit Diagnoses Diagnosis Abdominal pain, left lower quadrant Other acute pain Other chronic nonalcoholic liver disease Calculus of kidney Splenomegaly Encounter for long-term (current) use of other medications documented in this encounter
--- OUTSIDE RECORDS SUMMARY | 2024-09-10 04:13 | XMS_ITS | Encounter Summary ---
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 - 11/01/2007 4:30 PM BICYCLE REPAIRMAN Hospital Encounter [facility] Jordy Mcclain MD [address] [facility] [place] [address] Social History Tobacco Use Types Packs/Day Years Used Date Smoking Tobacco: Never Assessed Sex and Gender Information Value Date Recorded Sex Assigned at Not on file 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
--- OUTSIDE RECORDS SUMMARY | 2024-09-10 04:13 | XMS_ITS | Encounter Summary ---
Author Organization [facility] Healthcare Address [address] [place] [address] Care Team Providers Care Donor Relations Officer Name Role Phone Unavailable Primary Care Provider Unavailabl e Encounter Details Date Type Department Care Team (Latest Contact Info) Description 10/16/2016 8:43 AM VISUAL DESIGNER - 10/16/2016 10:28 AM VISUAL DESIGNER Hospital Encounter [facility] Sarah Meza MD [facility] [place] [address] Anxiety disorder; Type 2 diabetes mellitus without complications (CMS/HCC); Essential (primary) hypertension; Personal history of nicotine dependence; 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 Social History Tobacco Use Types Packs/Day Years Used Date Smoking Tobacco: Never Assessed Sex and Gender Information Value Date Recorded Sex Assigned at Not on file 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 Gender Identity Not on file Sexual Orientation Not on file documented as of this encounter Last Filed Vital Signs Vital Sign Reading Time Taken Comments Blood Pressure 146/78 10/16/2016 8:46 AM VISUAL DESIGNER Pulse 70 10/16/2016 8:46 AM VISUAL DESIGNER Temperature 36.5 ??C (97.7 ??F) 10/16/2016 8:46 AM CS T Respiratory Rate - - Oxygen Saturation 99% 10/16/2016 8:46 AM VISUAL DESIGNER Inhaled Oxygen Concentration - - Weight 111.1 kg (245 lb) 10/16/2016 8:46 AM VISUAL DESIGNER Height 182.9 cm (6') 10/16/2016 8:46 AM VISUAL DESIGNER Body Mass Index 33.23 10/16/2016 8:46 AM VISUAL DESIGNER documented in this encounter Medications at Time of Discharge promethazine (PHENERGAN) 25 mg tablet Take 25 mg by mouth every 6 hours. 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
--- OUTSIDE RECORDS SUMMARY | 2024-09-10 04:13 | XMS_ITS | Encounter Summary ---
Author Organization [facility] Healthcare Address [address] [place] [address] Care Team Providers Care Utility Mechanic Supervisor Name Role Phone Unavailable Primary Care Provider Unavailabl e Encounter Details Date Type Department Care Team (Late st Contact Info) Description 12/02/2007 5:59 PM CDT - 12/02/2007 6:56 PM CDT Hospital Encounter [facility] CL[facility] Memo Hensley MD [address] [id number] Social History Tobacco Use Types Packs/Day Years Used Date Smoking Tobacco: Never Assessed Sex and Gender Information Value Date Recorded Sex Assigned at Not on file 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
--- OUTSIDE RECORDS SUMMARY | 2024-09-10 04:13 | XMS_ITS | Encounter Summary ---
Author Organization [facility] Healthcare Address [address] [place] [address] Care Team Providers Care At Risk Specialist Name Role Phone Unavailable Primary Care Provider Unavailabl e Encounter Details Date Type Department Care Team (Late st Contact Info) Description 11/11/2007 11:28 PM BLUEPRINT DEVELOPER - 11/12/2007 2:20 AM [facility] Hospital Encounter [facility] CL[facility]CON[facility] Candice Murray MD [address] [place] [address] Social History Tobacco Use Types Packs/Day Years Used Date Smoking Tobacco: Never Assessed Sex and Gender Information Value Date Recorded Sex Assigned at Not on file 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
--- OUTSIDE RECORDS SUMMARY | 2024-09-10 04:13 | XMS_ITS | Encounter Summary ---
Author Organization [facility] Healthcare Address [address] [place] [address] Care Team Providers Care Cardio Clinician Name Role Phone Unavailable Primary Care Provider Unavailabl e Encounter Details Date Type Department Care Team (Late st Contact Info) Description 01/04/2010 4:19 PM CDT - 01/04/2010 5:17 PM CDT Hospital Encounter [place] [address] [facility] [address] [place] [address] Panic disorder without agoraphobia Social History Tobacco Use Types Packs/Day Years Used Date Smoking Tobacco: Never Assessed Sex and Gender Information Value Date Recorded Sex Assigned at Not on file 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
--- OUTSIDE RECORDS SUMMARY | 2024-09-10 04:13 | XMS_ITS | Encounter Summary ---
Author Organization [facility] Care Team Providers Care Clinical Transformation Specialist Name Role Phone Unavailable Primary Care Provider Unavailabl e Encounter Details Date Type Department Care Team (Latest Contact Info) Description 04/23/2014 6:19 PM CDT - 04/23/2014 9:35 PM CDT Hospital Encounter [facility] CLINCONV Hema Green, DO [address] [place] [address] Procedure not carried out because of patient's decision; Abdominal pain; Chest pain Social History Tobacco Use Types Packs/Day Years Used Date Smoking Tobacco: Never Assessed Sex and Gender Information Value Date Recorded Sex Assigned at Not on file 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 Gender Identity Not on file Sexual Orientation Not on file documented as of this encounter Plan of Treatment Scheduled Procedures Name Priority Associated Diagnoses Date/Ti me COLONOSCOPY Open Access Diverticulitis documented as of this encounter Procedures Procedure Name Priority Date/Time Associated Diagnosis Comments PLASMA TROPONIN I Routine 04/23/2014 7:1 7 PM CDT PLASMA CREATINE KINASE (CK) MB Routine 04/23/2014 7:17 PM CDT PLASMA CREATINE KINASE (CK) FRACTION Routine 04/23/2014 7:17 PM CDT PLASMA COMPREHENSIVE METABOLIC PANEL Routine 04/23/2014 7:17 PM CDT BLOOD CELL COUNT (CBC), MORPHOLOGIC EXAM Routine 04/23/2014 7:17 PM CDT DISCHARGE LABORATORY CUMULATIVE REPORT 04/23/2014 documented in this encounter Results * (ABNORMAL) Blood cell count (CBC), morphologic exam (04/23/2014 7:17 PM CDT) WBC 7.8 4.5 - 11.0 K/cumm HISTORICAL RESULTS RBC 5.97 4.50 - 6.20 M/cumm HISTORICAL RESULTS Hgb 14.3 13.0 - 17.0 g/dl HISTORICAL RESULTS Comment:As of September 27, the hemoglobin alert value has changed from less than 7.0 g/dL to less than or equal to 6.5 g/dL, first time per admission. Hct 43.9 39.0 - 52.0 % HISTORICAL RESULTS Comment:As of September 27, the hematocrit alert value has changed from less than 21% to less than or equal to 19.5%, first time per admission. MCV 73.5(L) 80.0 - 100.0 fl HISTORICAL RESULTS MCH 23.9(L) 27.0 - 33.0 pg HISTORICAL RESULTS MCHC 32.5 32.0 - 36.0 g/dl HISTORICAL RESULTS Rdw 16.5(H) 11.5 - 14.5 % HISTORICAL RESULTS Platelets 227 140 - 400 K/cumm HISTORICAL RESULTS MPV 7.2(L) 7.4 - 10.4 fl HISTORICAL RESULTS Neutrophils 58.7 42.0 - 75.0 % HISTORICAL RESULTS Lymphocytes 32.4 21.0 - 51.0 % HISTORICAL RESULTS Monos 7.4 2.0 - 9.0 % HISTORICAL RESULTS Eosinophils 1.2 0.0 - 10.0 % HISTORICAL RESULTS Basophils 0.3 0.0 - 1.0 % HISTORICAL RESULTS Neutrophils, abs 4.6 1.8 - 7.7 K/cumm HISTORICAL RESULTS Lymphocytes, abs 2.5 1.0 - 4.8 K/cumm HISTORICAL RESULTS Monocytes, absolute 0.6 0.0 - 0.8 K/cumm HISTORICAL RESULTS Eosinophils, abs 0.1 0.0 - 0.5 K/cumm HISTORICAL RESULTS Basophils, abs 0.0 0.0 - 0.2 K/cumm HISTORICAL RESULTS Blood specimen (specimen) 04/23/2014 7:17 PM CDT us Hema Green DO LAB BLOOD ORDERABLES Final Result HISTORICAL RESULTS * (ABNORMAL) Plasma comprehensive metabolic panel (04/23/2014 7:17 PM CDT) Sodium 139 136 - 146 mmol/L HISTORICAL RESULTS K, pl 3.6 3.3 - 4.9 mmol/L HISTORICAL RESULTS Chloride 105 98 - 108 mmol/L HISTORICAL RESULTS CO2 28 22 - 33 mmol/L HISTORICAL RESULTS BUN 10 7 - 18 mg/dl HISTORICAL RESULTS Glucose 83 70 - 140 mg/dl HISTORICAL RESULTS Comment: Glucose is assumed to be non-fasting. ?? Fasting Glucose normal ranges are: 0 days - 2 months: ? 40 mg/dL - 100 mg/dL 2 months - 999 years: ?70 mg/dL - 99 mg/dL Creatinine 0.75 0.50 - 1.50 mg/dl HISTORICAL RESULTS eGFR >60 ml/min/1.7 3 m2 HISTORICAL RESULTS Comment: GFR Reference Range: = > 60 mL/min/1.73 m2 This result has been calculated assuming the patient is Non-. ??If the patient is , please multiply this result by 1.21. The GFR value is not recommended for medication dose adjustment for renal function, creatinine clearance values should be used. Calcium 9.4 8.5 - 10.5 mg/dl HISTORICAL RESULTS Bilirubin 0.9 0.1 - 1.2 mg/dl HISTORICAL RESULTS Protein, pl 7.7 6.0 - 8.5 g/dl HISTORICAL RESULTS Alb 4.1 3.4 - 5.0 g/dl HISTORICAL RESULTS Alk phos 71 38 - 126 IUnits/L HISTORICAL RESULTS ALT 55 17 - 63 IUnits/L HISTORICAL RESULTS AST 44(H) 15 - 41 IUnits/L HISTORICAL RESULTS Plasma 04/23/2014 7:17 PM CDT us Hema Green DO LAB BLOOD ORDERABLES Final Result HISTORICAL RESULTS * Plasma creatine kinase (CK) fraction (04/23/2014 7:17 PM CDT) CK isoenzymes 294 49 - 397 IUnits/L HISTORICAL RESULTS Comment: For CK's <= ??65, MB is not performed per protocol; if needed, call chemistry lab. Plasma 04/23/2014 7:17 PM CDT Hema Green DO LAB BLOOD ORDERABLES Final Result Performing Organization Address [facility] de Phone Number HISTORICAL RESULTS * Plasma creatine kinase (CK) MB (04/23/2014 7:17 PM CDT) CK MB 2.5 0.6 - 6.3 ng/ml HISTORICAL RESULTS Plasma 04/23/2014 7:17 PM CDT Hema Green DO LAB BLOOD ORDERABLES Final Result Performing Organization Address [facility] de Phone Number HISTORICAL RESULTS * Plasma troponin I (04/23/2014 7:17 PM CDT) Troponin I 0.01 0.00 - 0.04 ng/ml HISTORICAL RESULTS Comment: < 0.04 ng/mL ??No evidence of myocardial damage. 0.04 - 0.78 ng/mL Indeterminate-repeat analysis assess the possibility of myocardial damage. >0.78 ng/mL ??Consistent with myocardial damage. Plasma 04/23/2014 7:17 PM CDT Hema Green DO LAB BLOOD ORDERABLES Final Result Performing Organization Address [facility] de Phone Number HISTORICAL RESULTS * DISCHARGE LABORATORY CUMULATIVE REPORT (04/23/2014) Narrative 04/23/2014 Ordered by an unspecified provider. Historical Provider LAB BLOOD ORDERABLES Laura l Result documented in this encounter Visit Diagnoses Diagnosis Procedure not carried out because of patient's decision Surgical or other procedure not carried out because of patient's decision Abdominal pain Abdominal pain, unspecified site Chest pain Unspecified chest pain documented in this encounter
--- OUTSIDE RECORDS SUMMARY | 2024-09-10 04:13 | XMS_ITS | Encounter Summary ---
Author Organization [facility] Care Team Providers Care Professor Of Economics Name Role Phone Unavailable Primary Care Provider Unavailabl e Encounter Details Date Type Department Care Team (Late st Contact Info) Description 11/04/2009 12:55 AM SPRING FORMER MACHINE - 11/04/2009 5:11 AM SPRING FORMER MACHINE Hospital Encounter [facility] CLINCONV Hardik Brunson MD [address] [place] [address] Anxiety state Social History Tobacco Use Types Packs/Day Years Used Date Smoking Tobacco: Never Assessed Sex and Gender Information Value Date Recorded Sex Assigned at Not on file 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
--- OUTSIDE RECORDS SUMMARY | 2024-09-10 04:13 | XMS_ITS | Encounter Summary ---
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
--- OUTSIDE RECORDS SUMMARY | 2024-09-10 04:13 | XMS_ITS | Encounter Summary ---
Author Organization [facility] Facility Care Team Providers Care Planer Off Bearer Name Role Phone Unavailable Primary Care Provider Unavailabl e Encounter Details Date Type Department Care Team (Late st Contact Info) Description 08/04/2010 4:40 PM WINERY WORKER - 08/04/2010 7:26 PM WINERY WORKER Hospital Encounter [facility] CLINCONV Raul Bateman Abdominal pain, left lower quadrant; Diverticulitis of colon; Gastritis and gastroduodenitis; Pulmonary collapse; Calculus of kidney; Inguinal hernia; Anxiety state; Other depressive disorder Social History Tobacco Use Types Packs/Day Years Used Date Smoking Tobacco: Never Assessed Sex and Gender Information Value Date Recorded Sex Assigned at Not on file Legal Sex Male 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 Gender Identity Not on file Sexual Orientation Not on file documented as of this encounter Plan of Treatment Scheduled Procedures Name Priority Associated Diagnoses Date/Ti me COLONOSCOPY Open Access Diverticulitis documented as of this encounter Visit Diagnoses Diagnosis Abdominal pain, left lower quadrant Diverticulitis of colon Diverticulitis of colon (without mention of hemorrhage) Gastritis and gastroduodenitis Unspecified gastritis and gastroduodenitis without mention of hemorrhage Pulmonary collapse Calculus of kidney Inguinal hernia Inguinal hernia without mention of obstruction or gangrene, unilateral or unspecified, (not specified as recurrent) Anxiety state Anxiety state, unspecified Other depressive disorder documented in this encounter
--- OUTSIDE RECORDS SUMMARY | 2024-09-10 04:13 | XMS_ITS | Encounter Summary ---
Author Organization [facility] Healthcare Address [address] [place] [address] Care Team Providers Care Electro Winning Operator Name Role Phone Unavailable Primary Care Provider Unavailabl e Encounter Details Date Type Department Care Team (Late st Contact Info) Description 11/18/2007 2:48 PM RIVETER AUTOMOBILE BRAKES - 11/18/2007 4:06 PM RIVETER AUTOMOBILE BRAKES Hospital Encounter [facility] CLINCONV Moiz Fernandez Jr., DO [address] [place] [address] Social History Tobacco Use Types Packs/Day Years Used Date Smoking Tobacco: Never Assessed Sex and Gender Information Value Date Recorded Sex Assigned at Not on file Legal Sex Male 1:40 AM RIVETER AUTOMOBILE BRAKES Gender Identity Not on file Sexual Orientation Not on file documented as of this encounter Plan of Treatment Scheduled Procedures Name Priority Associated Diagnoses Date/Ti me COLONOSCOPY Open Access Diverticulitis documented as of this encounter Visit Diagnoses Not on filedocumented in this encounter
--- OUTSIDE RECORDS SUMMARY | 2024-09-10 04:13 | XMS_ITS | Encounter Summary ---
Author Organization [facility] Care Team Providers Care Hand I Tube Bender Name Role Phone Unavailable Primary Care Provider Unavailabl e Encounter Details Date Type Department Care Team (Latest Contact Info) Description 08/31/2016 5:33 PM HUMANITIES PROFESSOR - 08/31/2016 7:38 PM HUMANITIES PROFESSOR Hospital Encounter [facility] CLINCON[facility] Leonard Recio MD [address] [facility] [address] [place] [address] Anxiety disorder; Other problems related to lifestyle; Post-traumatic stress disorder Social History Tobacco Use Types Packs/Day Years Used Date Smoking Tobacco: Never Assessed Sex and Gender Information Value Date Recorded Sex Assigned at Not on file Legal Sex Male 1:40 AM 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 07/17/2016 10/17/2020 documented as of this encounter Plan of Treatment Scheduled Procedures Name Priority Associated Diagnoses Date/Ti ut COLONOSCOPY Open Access Diverticulitis documented as of this encounter Visit Diagnoses Diagnosis Anxiety disorder Anxiety state, unspecified Other problems related to lifestyle Post-traumatic stress disorder Posttraumatic stress disorder documented in this encounter
--- OUTSIDE RECORDS SUMMARY | 2024-09-10 04:13 | XMS_ITS | Encounter Summary ---
Author Organization [facility] Healthcare Address [address] [place] [address] Care Team Providers Care Foundry Engineer Name Role Phone Unavailable Primary Care Provider Unavailabl e Encounter Details Date Type Department Care Team (Late st Contact Info) Description 01/31/2015 9:54 PM CDT - 01/31/2015 11:39 PM CDT Hospital Encounter [facility] John Costa MD [address] [facility] [address] [place] [address] Anxiety state; Dizziness and giddiness; Essential hypertension; Type 2 or unspecified type diabetes mellitus; Bipolar affective disorder (HCC) Social History Tobacco Use Types Packs/Day Years Used Date Smoking Tobacco: Never Assessed Sex and Gender Information Value Date Recorded Sex Assigned at Not on file 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 Gender Identity Not on file Sexual Orientation Not on file documented as of this encounter Last Filed Vital Signs Vital Sign Reading Time Taken Comments Blood Pressure 158/97 01/31/2015 10:00 PM CDT Pulse 102 01/31/2015 10:00 PM CDT Temperature 36.6 ??C (97.8 ??F) 01/31/2015 10:00 PM C DT Respiratory Rate - - Oxygen Saturation 100% 01/31/2015 10:00 PM CDT Inhaled Oxygen Concentration - - Weight 120.2 kg (265 lb) 01/31/2015 10:00 PM CDT Height 188 cm (6' 2 ) 01/31/2015 10:00 PM CDT Body Mass Index 34.02 01/31/2015 10:00 PM CDT documented in this encounter Plan of Treatment Scheduled Procedures Name Priority Associated Diagnoses Date/Ti me COLONOSCOPY Open Access Diverticulitis documented as of this encounter Visit Diagnoses Diagnosis Anxiety state Anxiety state, unspecified Dizziness and giddiness Essential hypertension Unspecified essential hypertension Type 2 or unspecified type diabetes mellitus Bipolar affective disorder (HCC) Bipolar disorder, unspecified documented in this encounter
--- OUTSIDE RECORDS SUMMARY | 2024-09-10 04:13 | XMS_ITS | Encounter Summary ---
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
--- OUTSIDE RECORDS SUMMARY | 2024-09-10 04:13 | XMS_ITS | Encounter Summary ---
Author Organization [facility] Healthcare Address [address] [place] [address] Care Team Providers Care Marketing Strategy Manager Name Role Phone Unavailable Primary Care Provider Unavailabl e Encounter Details Date Type Department Care Team (Late st Contact Info) Description 12/21/2009 7:53 PM CDT - 12/22/2009 12:29 AM CDT Hospital Encounter [facility] CL[facility] John Mckeon MD [address] [place] [address] Anxiety state; Esophageal reflux; Other depressive disorder Social History Tobacco Use Types Packs/Day Years Used Date Smoking Tobacco: Never Assessed Sex and Gender Information Value Date Recorded Sex Assigned at Not on file Legal Sex Male 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
--- OUTSIDE RECORDS SUMMARY | 2024-09-10 04:13 | XMS_ITS | Encounter Summary ---
Author Organization [facility] Healthcare Address [address] [place] [id number] Care Team Providers Care Bank Worker Name Role Phone Unavailable Primary Care Provider Unavailabl e Encounter Details Date Type Department Care Team (Latest Contact Info) Description 01/02/2015 3:53 PM CDT - 01/02/2015 10:01 PM CDT Hospital Encounter [facility] Reji Deluca, DO [address] [place], [place] [id number] Painful respiration; Headache; Cervicalgia; Scoliosis (and kyphoscoliosis), idiopathic; Personal history of tobacco use, presenting hazards to health Social History Tobacco Use Types Packs/Day Years Used Date Smoking Tobacco: Never Assessed Sex and Gender Information Value Date Recorded Sex Assigned at Not on file 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 Gender Identity Not on file Sexual Orientation Not on file documented as of this encounter Last Filed Vital Signs Vital Sign Reading Time Taken Comments Blood Pressure 156/84 01/02/2015 4:03 PM CDT Pulse 98 01/02/2015 4:03 PM CDT Temperature 36.8 ??C (98.3 ??F) 01/02/2015 4:03 PM CD T Respiratory Rate - - Oxygen Saturation 98% 01/02/2015 4:03 PM CDT Inhaled Oxygen Concentration - - Weight 120.2 kg (265 lb) 01/02/2015 4:03 PM CDT Height 188 cm (6' 2 ) 01/02/2015 4:03 PM CDT Body Mass Index 34.02 01/02/2015 4:03 PM CDT documented in this encounter Plan of Treatment Scheduled Procedures Name Priority Associated Diagnoses Date/Ti me COLONOSCOPY Open Access Diverticulitis documented as of this encounter Procedures Procedure Name Priority Date/Time Associated Diagnosis Comments TNI WITH LIPID PANEL Routine 01/02/2015 4:05 PM CDT CBC WITH AUTO DIFFERENTIAL Routine 01/02/2015 4:05 PM CDT APTT Routine 01/02/2015 4:05 PM CDT PROTIME-INR Routine 01/02/2015 4:05 PM CDT D-DIMER, QUANTITATIVE Routine 01/02/2015 4:05 PM CDT CHOLESTEROL, LDL, DIRECT Routine 01/02/2015 4:05 PM CDT COMPREHENSIVE METABOLIC PANEL Routine 01/02/2015 4:05 PM CDT XR CHEST PA LATERAL 2 VIEWS Routine 01/02/2015 12:00 AM CDT documented in this encounter Results * D-dimer, quantitative (01/02/2015 4:05 PM CDT) Pathologist [facility] D-Dimer, Quantitative < 0.22 0.00 - 0.50 FEUug/ml 01/02/2015 9:06 PM CDT [facility] HISTORICAL RESULTS Comment: Studies indicate that a D-Dimer level of <0.50 FEUug/ml has a >95% negative predictive value for DVT,DIC,PE and other embolus conditions. ??Levels >0.50 FEUug/ml may be present in a wide variety of conditions and should not be considered diagnostic of any disease state. 01/02/2015 4:05 PM CDT 01/02/2015 4:42 PM CDT Narrative [facility] HISTORICAL RESULTS - 01/02/2015 9:06 PM CDT us [facility] BLOOD ORDERABLES Final Result [facility] HISTORICAL RESULTS * (ABNORMAL) Cholesterol, LDL, direct (01/02/2015 4:05 PM CDT) LDL Cholesterol Measurd 126(H) 0 - 100 mg/dL 01/02/2015 7:21 PM CDT [facility] HISTORICAL RESULTS Comment:High Risk > 159 mg/d L 01/02/2015 4:05 PM CDT 01/02/2015 4:43 PM CDT Narrative [facility] HISTORICAL RESULTS - 01/02/2015 7:21 PM CDT [facility] BLOOD ORDERABLES Final Result [facility] HISTORICAL RESULTS * (ABNORMAL) TNI with LIPID PANEL (01/02/2015 4:05 PM CDT) Troponin I < 0.300 0.000 - 0.300 ng/mL 01/02/2015 5:56 PM CDT [facility] HISTORICAL RESULTS Comment: Reference using MARCK Chemiluminescence ? Negative: Repeat in 4-6 hours as indicated. Triglycerides 281(H) 0 - 199 mg/dL 01/02/2015 5:59 PM T [facility] HISTORICAL RESULTS Comment: LDL (measured) to follow due to Triglycerides >250 mg/dL 12 hr pc highly recommended for Triglyceride Cholesterol 180 0 - 199 mg/dL 01/02/2015 5:59 PM T [facility] HISTORICAL RESULTS Comment: Borderline: ??200-239 High Risk: ?? >239 HDL Cholesterol 17(L) 40 - 60 mg/dL 01/02/2015 5:59 PM T [facility] HISTORICAL RESULTS Comment: Major Risk ?< 40 mg/dL Moderate Risk ?40-60 mg/dL Negative Risk ?? > 60 mg/dL Cholesterol/HDL Ratio 10.6 01/02/2015 5:59 PM T [facility] HISTORICAL RESULTS Comment: Cholesterol / HDL Ratio 3.5:1 or less is desirable. Cholesterol / HDL Ratio greater than 5:1 is considered higher risk for developing heart disease. 01/02/2015 4:05 PM CDT 01/02/2015 4:43 PM CDT Narrative [facility] HISTORICAL RESULTS - 01/02/2015 5:59 PM CDT [facility] BLO[facility] ORDERABLES Final Result Performing Organization Address [facility] de Phone Number [facility] HISTORICAL RESULTS * Protime-INR (01/02/2015 4:05 PM CDT) PT 13.2 12.2 - 14.8 SECONDS 01/02/2015 4:57 PM CDT [facility] HISTORICAL RESULTS INR 0.97 0.01 - 5.99 01/02/2015 4:57 PM CDT [facility] HISTORICAL RESULTS Comment: Recommended Therapeutic range for Oral Anticoagulant Therapy No anti-coagulation therapy ? Normal Range: ?0.8-1.4 Anti-coagulation therapy ? Low intensity therapy ?2.0-3.0 ? High intensity therapy ?? 2.5-3.5 Critical Value ? Greater than or equal to 6.0 Patients should be monitored for serious bleeding. ?? 01/02/2015 4:05 PM CDT 01/02/2015 4:42 PM CDT [facility] HISTORICAL RESULTS - 01/02/2015 4:57 PM CDT [facility] BLOOD ORDERABLES Final Result Performing Organization Address [facility] de Phone Number [facility] HISTORICAL RESULTS * aPTT (01/02/2015 4:05 PM CDT) Pathologist [facility] APTT 33 24 - 38 SECONDS 01/02/2015 4:58 PM CDT [facility] HISTORICAL RESULTS 01/02/2015 4:05 PM CDT 01/02/2015 4:42 PM CDT [facility] HISTORICAL RESULTS - 01/02/2015 4:58 PM CDT [facility] BLOOD ORDERABLES Final Result Performing Organization Address [facility] de Phone Number [facility] HISTORICAL RESULTS * (ABNORMAL) Comprehensive metabolic panel (01/02/2015 4:05 PM CDT) [facility] Sodium 140 135 - 145 mmol/L Potassium 3.7 3.3 - 5.1 mmol/L Chloride 100 96 - 108 mmol/L Carbon Dioxide 29 22 - 32 mmol/L Anion Gap 11 7 - 16 Glucose 123(H) 70 - 100 mg/dL Comment:As of August 15 14 new normal range in use. BUN 8 6 - 20 mg/dL Creatinine 0.9 0.5 [...] Kidney failure or on dialysis @ Calcium 9.2 8.6 - 10.0 mg/dL 01/02/2015 5:59 PM CDT [facility] HISTORICAL RESULTS Total Protein 8.1 6.4 - 8.3 g/dL 01/02/2015 5:59 PM CDT [facility] HISTORICAL RESULTS Albumin 4.3 3.5 - 5.2 g/dL 01/02/2015 5:59 PM CDT [facility] HISTORICAL RESULTS Globulin 3.8(H) 2.3 - 3.5 gm/dL 01/02/2015 5:59 PM CDT [facility] HISTORICAL RESULTS Albumin/Globulin Ratio 1.1 1.1 - 1.8 01/02/2015 5:59 PM CDT [facility] HISTORICAL RESULTS Total Bilirubin 1.0 0.0 - 1.2 mg/dL 01/02/2015 5:59 PM CDT [facility] HISTORICAL RESULTS AST 39 0 - 40 U/L 01/02/2015 5:59 PM T [facility] HISTORICAL RESULTS ALT 50(H) 0 - 41 U/L 01/02/2015 5:59 PM T [facility] HISTORICAL RESULTS Alkaline Phosphatase 82 40 - 129 U/L 01/02/2015 5:59 PM T [facility] HISTORICAL RESULTS 01/02/2015 4:05 PM CDT 01/02/2015 4:43 PM CDT Narrative [facility] HISTORICAL RESULTS - 01/02/2015 5:59 PM CDT [facility] BLOOD ORDERABLES Final Result [facility] HISTORICAL RESULTS * (ABNORMAL) CBC with auto differential (01/02/2015 4:05 PM CDT) Pathologist [facility] WBC 5.6 4.6 - 10.2 x10 3/ul 01/02/2015 4:54 PM CDT [facility] HISTORICAL RESULTS RBC 6.14(H) 4.11 - 5.71 x10 6/ul 01/02/2015 4:54 PM T [facility] HISTORICAL RESULTS Hemoglobin 13.5 13.0 - 17.0 g/dl 01/02/2015 4:54 PM T [facility] HISTORICAL RESULTS Hct 43.8 38.2 - 48.5 % MCV 71.3(L) 80.0 - 97.0 fl MCH 22.0(L) 27.0 - 31.2 pg MCHC 30.8(L) 31.8 - 35.4 g/dl RDW 18.1(H) 11.6 - 14.8 % Plt Count 199 124 - 400 x10 3/ul MPV 9.2 7.4 - 10.4 fl Differential Method AUTOMATED DIFF --------- -- Neut % 63.2 37.0 - 85.0 % Immature Gran % 0.2 0.0 - 3.0 % Lymph % 27.9 5.0 - 45.0 % [place] % 6.0 3.0 - 15.0 % Eos % 2.0 0.0 - 7.0 % Baso % 0.7 0.0 - 2.0 % ABSOLUTE COUNTS ABSOLUTE COUNTS --------- -- Absolute Neuts (auto) 3.6 1.7 - 8.7 x10 3/ul Immature Gran # 0.0 0.0 - 0.3 x10 3/ul 01/02/2015 4:54 PM CDT [facility] HISTORICAL RESULTS Absolute Lymphs (auto) 1.6 0.2 - 4.6 x10 3/ul 01/02/2015 4:54 PM CDT [facility] HISTORICAL RESULTS Absolute Monos (auto) 0.3 0.1 - 1.5 x10 3/ul 01/02/2015 4:54 PM CDT [facility] HISTORICAL RESULTS Absolute Eos (auto) 0.1 0.0 - 0.7 x10 3/ul 01/02/2015 4:54 PM CDT [facility] HISTORICAL RESULTS Absolute Basos (auto) 0.0 0.0 - 0.2 x10 3/ul 01/02/2015 4:54 PM CDT [facility] HISTORICAL RESULTS 01/02/2015 4:05 PM CDT 01/02/2015 4:42 PM CDT Narrative [facility] HISTORICAL RESULTS - 01/02/2015 4:54 PM CDT [facility] BLOOD ORDERABLES Final Result [facility] HISTORICAL RESULTS * XR Chest Pa Lateral 2 Views (01/02/2015 12:00 AM CDT) Anatomical Region Laterality Modality Body, Chest N/A Radiographic Katarzyna ging 01/02/2015 Impressions 01/02/2015 4:38 PM CDT ?? 1. ??No acute findings. ??No acute infiltrate. 2. ??No significant interval change. 3. ??Levoconvex scoliosis. THIS IS AN ELECTRONICALLY VERIFIED REPORT 01/02/2015 4:35 PM: ??Balta Vásquez M.D. Balta Vásquez M.D. MJ:mj 04:35 PM 04:35 PM [facility] [EOD] Narrative 01/02/2015 4:38 PM CDT EXAMINATION: ??PA and lateral chest HISTORY: ??Chest pain. COMPARISON: ??08/15/2014, 07/12/2012 FINDINGS: Chest two-view. There is a normal cardiomediastinal silhouette and pulmonary vasculature. ??No focal infiltrate or effusion. ??Levoconvex scoliosis thoracic spine. ??Soft tissue structures are otherwise unremarkable. Procedure Note Provider, MD Rachael - 01/27/2021 EXAMINATION: PA and lateral chest HISTORY: Chest pain. COMPARISON: 08/15/2014, 07/12/2012 FINDINGS: Chest two-view. There is a normal cardiomediastinal silhouetteand pulmonary vasculature. No focal infiltrate or effusion. Levoconvexscoliosis thoracic spine. Soft tissue structures are otherwise unremarkable. IMPRESSION: 1. No acute findings. No acute infiltrate. 2. No significant interval change. 3. Levoconvex scoliosis. THIS IS AN ELECTRONICALLY VERIFIED REPORT 01/02/2015 4:35 PM: Balta Vásquez M.D. Balta Vásquez M.D. MJ:rj 04:35 PM 04:35 PM [facility] [EOD] [facility] XR PROCEDURES Fin al Result documented in this encounter Visit Diagnoses Diagnosis Painful respiration Headache Cervicalgia Scoliosis (and kyphoscoliosis), idiopathic Personal history of tobacco use, presenting hazards to health documented in this encounter
--- OUTSIDE RECORDS SUMMARY | 2024-09-10 04:13 | XMS_ITS | Encounter Summary ---
Author Organization [facility] Care Team Providers Care Track Layer Head Name Role Phone Unavailable Primary Care Provider Unavailabl e Encounter Details Date Type Department Care Team (Latest Contact Info) Description 12/26/2009 1:49 AM CDT - 12/26/2009 3:36 AM CDT Hospital Encounter [facility] Maira Covington MD [address] [place] [address] Panic disorder without agoraphobia; Anxiety state; Nausea without vomiting; Esophageal reflux; Other depressive disorder Social History Tobacco Use Types Packs/Day Years Used Date Smoking Tobacco: Never Assessed Sex and Gender Information Value Date Recorded Sex Assigned at Not on file Legal Sex Male 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
--- OUTSIDE RECORDS SUMMARY | 2024-09-10 04:13 | XMS_ITS | Encounter Summary ---
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; Essential (primary) hypertension; Hyperlipidemia; Type 2 diabetes mellitus without complications (CMS/HCC); Other fdc (current) drug therapy Social History Tobacco Use Types Packs/Day Years Used Date Smoking Tobacco: Never Assessed Sex and Gender Information Value Date Recorded Sex Assigned at Not on file 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 Gender Identity Not on file Sexual Orientation Not on file documented as of this encounter Last Filed Vital Signs Vital Sign Reading Time Taken Comments Blood Pressure 142/85 12/14/2015 5:20 PM CDT Pulse 73 12/14/2015 5:20 PM CDT Temperature 37.1 ??C (98.7 ??F) 12/14/2015 5:20 PM CD T Respiratory Rate - - Oxygen Saturation 97% 12/14/2015 5:20 PM CDT Inhaled Oxygen Concentration - - Weight 120.2 kg (265 lb) 12/14/2015 5:20 PM CDT Height 188 cm (6' 2 ) 12/14/2015 5:20 PM CDT Body Mass Index 34.02 12/14/2015 5:20 PM CDT documented in this encounter Plan of Treatment Scheduled Procedures Name Priority Associated Diagnoses Date/Ti me COLONOSCOPY Open Access Diverticulitis documented as of this encounter Procedures Procedure Name Priority Date/Time Associated Diagnosis Comments HEMOGRAM WITH MANUAL DIFFERENTIAL Routine 12/14/2015 6:30 PM CDT SLIDE REVIEW - PATHOLOGIST Routine 12/14/2015 6:30 PM CDT TROPONIN I Routine 12/14/2015 6:30 PM CDT COMPREHENSIVE METABOLIC PANEL Routine 12/14/2015 6:30 PM CDT XR CHEST PA LATERAL 2 VIEWS Routine 12/14/2015 6:[address] CERVICAL SPINE WO CONTRAST Routine 12/14/2015 12:[address] FACIAL BONES WO CONTRAST Routine 12/14/2015 12:[address] HEAD WO CONTRAST Routine 12/14/2015 1 2:00 AM CDT documented in this encounter Results * Slide review - pathologist (12/14/2015 6:30 PM CDT) Diff Slide Review SLIDE REVIEW Comment: Pathologist Review of Peripheral Blood Smear ?? Pathologist Review of Peripheral Blood Smear ?? Pathologist Review of Peripheral Blood Smear Hem Pathologist Commnt Comment:Agree with different ial/morphology. Path Cons Sign Path Pathologist Comment:Reviewed by John Mays M.D. 12/14/2015 6:30 PM CDT 12/14/2015 6:36 PM CDT us Iris COLLIER LAB BLOOD ORDERABLES Final Re sult [facility] HISTORICAL RESULTS * (ABNORMAL) Hemogram with manual differential (12/14/2015 6:30 PM CDT) WBC 5.3 4.6 - 10.2 x10 3/ul 12/14/2015 6:46 PM CDT [facility] RES[facility] RBC 5.98(H) 4.11 - 5.71 x10 6/ul 12/14/2015 6:46 PM CDT [facility] Hemoglobin 12.2(L) 13.0 - 17.0 g/dl 12/14/2015 6:46 PM CDT [facility] Hct 40.6 38.2 - 48.5 % 12/14/2015 6:46 PM CDT [facility] MCV 67.9(L) 80.0 - 97.0 fl 12/14/2015 6:46 PM CDT [facility] MCH 20.4(L) 27.0 - 31.2 pg 12/14/2015 6:46 PM CDT [facility]ULTS MCHC 30.0(L) 31.8 - 35.4 g/dl 12/14/2015 6:46 PM CDT [facility] RDW 18.2(H) 11.6 - 14.8 % 12/14/2015 6:46 PM CDT [facility] Plt Count 195 124 - 400 x10 3/ul 12/14/2015 6:46 PM CDT [facility] MPV 8.7 7.4 - 10.4 fl 12/14/2015 6:46 PM CDT [facility] MANUAL DIFF MANUAL DIFF --------- -- Comment:PATHOLOGIST'S COMMEN TS TO FOLLOW. Neutrophils % (Manual) 65 37 - 80 % 12/14/2015 7:50 PM CDT [facility] Lymphocytes % (Manual) 29 10 - 51 % 12/14/2015 7:50 PM CDT [facility] Monocytes % (Manual) 3 0 - 12 % 12/14/2015 7:50 PM CDT [facility] RESULTS Eosinophils % (Manual) 3 0 - 7 % 12/14/2015 7:50 PM CDT [facility] ABSOLUTE COUNTS ABSOLUTE COUNTS --------- -- 12/14/2015 7:50 PM CDT [facility] Abs Neuts cells/mm3 3445 /ul Absolute Neutrophils 3.4 1.7 - 8.7 x10 3/ul Absolute Lymphocytes 1.5 0.2 - 4.6 x10 3/ul Absolute Monocytes 0.2 0.1 - 1.5 x10 3/ul Absolute Eosinophils 0.2 0.0 - 0.7 x10 3/ul Platelet Evaluation AGREE AGREE Comment:Slide review of plat elets correlates with instrument count. Polychromasia 1+ Microcytosis 3+ Ovalocytes 1+ 12/14/2015 6:30 PM CDT 12/14/2015 6:36 PM CDT Narrative [facility] HISTORICAL RESULTS - 12/14/2015 7:50 PM CDT us Iris COLLIER LAB BLOOD ORDERABLES Final Re sult [facility] HISTORICAL RESULTS * Troponin I (12/14/2015 6:30 PM CDT) Pathologist [facility] Troponin I < 0.300 0.000 - 0.300 ng/mL Comment: Reference using MARCK Chemiluminescence ? Negative: Repeat in 4-6 hours as indicated. 12/14/2015 6:3 0 PM CDT 12/14/2015 6:36 PM CDT us Iris COLLIER LAB BLOOD ORDERABLES Final Re sult [facility] HISTORICAL RESULTS * (ABNORMAL) Comprehensive metabolic panel (12/14/2015 6:30 PM CDT) Sodium 137 135 - 145 mmol/L Potassium 3.7 3.3 - 5.1 mmol/L Chloride 100 96 - 108 mmol/L Carbon Dioxide 29 22 - 32 mmol/L Anion Gap 8 7 - 16 Glucose 101(H) 70 - 100 mg/dL BUN 7 6 [...] or on dialysis @ Est GFR (Cockcroft-G) 187 ml/MIN Calcium 9.0 8.6 - 10.0 mg/dL Total Protein 7.9 6.4 - 8.3 g/dL Albumin 4.2 3.5 - 5.2 g/dL Globulin 3.7(H) 2.3 - 3.5 gm/dL Albumin/Globulin Ratio 1.1 1.1 - 1.8 Total Bilirubin 1.0 0.0 - 1.2 mg/dL AST 55(H) 0 - 40 U/L ALT 58(H) 0 - 41 U/L Alkaline Phosphatase 78 40 - 129 U/L 12/14/2015 6:30 PM CDT 12/14/2015 6:36 PM CDT us Iris Hernandez PA LAB BLOOD ORDERABLES Final Re sult [facility] HISTORICAL RESULTS * XR Chest Pa Lateral 2 Views (12/14/2015 6:14 PM CDT) Anatomical Region Laterality Modality Body, Chest N/A Radiographic Katarzyna ging 12/14/2015 6:14 PM CDT Impressions 12/14/2015 7:59 PM CDT Negative chest. THIS IS AN ELECTRONICALLY VERIFIED REPORT 12/14/2015 7:56 PM: ??Raza Mondragon M.D. ?? Raza Mondragon M.D. RN:rn 07:56 PM 07:56 PM NOR [EOD] Narrative 12/14/2015 7:59 PM CDT EXAMINATION: PA and Lateral Chest XRAY HISTORY: Two week history of intermittent shortness of breath with headache and dizziness. COMPARISON: Prior exam from 01/02/2015. FINDINGS: There is no infiltrate or effusion. The heart size and pulmonary vascular caliber are within normal limits. Osseous structures are intact. Procedure Note Provider, MD Rachael - 01/27/2021 EXAMINATION: PA and Lateral Chest XRAY HISTORY: Two week history of intermittent shortness of breath with headache and dizziness. COMPARISON: Prior exam from 01/02/2015. FINDINGS: There is no infiltrate or effusion. The heart size and pulmonary vascular caliber are within normal limits. Osseous structures areintact. IMPRESSION: Negative chest. THIS IS AN ELECTRONICALLY VERIFIED REPORT 12/14/2015 7:56 PM: Raza Mondragon M.D. Raza Mondragon M.D. RN:rn 07:56 PM 07:56 PM NOR [EOD] us Iris Hernandez PA IMG XR PROCEDURES Final Resul t * CT Cervical Spine WO Contrast (12/14/2015 12:00 AM CDT) Anatomical Region Laterality Modality Spine N/A Computed Tomogra phy 12/14/2015 Impressions 12/14/2015 7:47 PM CDT 1. ??No acute traumatic osseous injuries of the cervical spine. 2. ??Degenerative intervertebral disc disease at C5-C6 resulting in at least mild central canal stenosis. ??This area is obscured by artifact. ??Consider MRI for further evaluation non-emergently. Automated exposure control was used as a dose optimization technique for this examination. THIS IS AN ELECTRONICALLY VERIFIED REPORT 12/14/2015 7:43 PM: ??Edwin Krueger M.D. ?? Edwin Krueger M.D. NAZANIN:nazanin 07:43 PM 07:43 PM BM [EOD] Narrative 12/14/2015 7:47 PM CDT EXAMINATION: ??Non-IV contrast CT of the cervical spine HISTORY: ??Neck pain and headache for 3-4 days with no specific trauma. ?? Hypertension. TECHNIQUE: ??Noncontrast CT the cervical spine with sagittal coronal reformats. Automated exposure control was used as a dose optimization technique for this examination. COMPARISON: ??Radiographs of the cervical spine from 11/20/2005. FINDINGS: New proton starvation with Quantum mottle artifact obscures the vertebral bodies from C5 through the upper thoracic spine secondary to patient body habitus. ??There is loss of the normal lordotic curvature of focal kyphosis at C5-C6 where disc osteophyte complex narrows the central canal to 9 mm consistent with at least mild central canal stenosis. Loss of the normal lordotic curvature of the cervical spine may be secondary to positioning or muscle spasm. ??The craniocervical junction is intact C1-C2 articulation is normally aligned. ??The facet joints are aligned and interspinous distances are normal. ??There is no prevertebral soft tissue swelling. ??No fracture. Procedure Note Provider, MD Rachael - 01/27/2021 EXAMINATION: Non-IV contrast CT of the cervical spine HISTORY: Neck pain and headache for 3-4 days with no specific trauma. Hypertension. TECHNIQUE: Noncontrast CT the cervical spine with sagittal coronalreformats. Automated exposure control was used as a dose optimization technique forthis examination. COMPARISON: Radiographs of the cervical spine from 11/20/2005. FINDINGS: New proton starvation with Quantum mottle artifact obscures the vertebral bodies from C5 through the upper thoracic spine secondary topatient body habitus. There is loss of the normal lordotic curvature of focal kyphosis at C5-C6 where disc osteophyte complex narrows the central canalto 9 mm consistent with at least mild central canal stenosis. Loss of thenormal lordotic curvature of the cervical spine may be secondary to positioningor muscle spasm. The craniocervical junction is intact C1-C2 articulation is normally aligned. The facet joints are aligned and interspinous distancesare normal. There is no prevertebral soft tissue swelling. No fracture. IMPRESSION: 1. No acute traumatic osseous injuries of the cervical spine. 2. Degenerative intervertebral disc disease at C5-C6 resulting in atleast mild central canal stenosis. This area is obscured by artifact. ConsiderMRI for further evaluation non-emergently. Automated exposure control was used as a dose optimization technique forthis examination. THIS IS AN ELECTRONICALLY VERIFIED REPORT 12/14/2015 7:43 PM: Edwin Krueger M.D. Edwin Krueger M.D. NAZANIN:nazanin 07:43 PM 07:43 PM [facility] [EOD] us Historical Provider MD [facility] CT PROCEDURES Final R esult * CT Facial Bones WO Contrast (12/14/2015 12:00 AM CDT) Anatomical Region Laterality Modality Head and Neck N/A Computed Tomogra phy 12/14/2015 Impressions 12/14/2015 7:58 PM CDT ??Stable polyp or retention cyst in the right maxillary sinus. ?? Otherwise unremarkable CT of the facial bones. Automated exposure control was used as a dose optimization technique for this examination. THIS IS AN ELECTRONICALLY VERIFIED REPORT 12/14/2015 7:54 PM: ??Raza Mondragon M.D. ?? Raza Mondragon M.D. RN:christianne 07:54 PM 07:54 PM NOR [EOD] Narrative 12/14/2015 7:[address] MAXILLOFACIAL BONES. HISTORY: ??Patient has several day history of headache and neck pain with no injury. ??Chronic frontal sinus pain and pressure for years. FINDINGS: ??Axial noncontrast CT of the facial bones was performed. ??Coronal and sagittal reformatted images were created and reviewed. There is no prior CT of the sinuses or facial bones. ??There is a head CT from 12/11/2014, which included a portion of the sinuses, for reference. There is no evidence of an acute displaced facial bone fracture or destructive neoplasm. ??The temporomandibular articulations are preserved. ??The orbital contours are smooth and regular with no cortical discontinuity or evidence of orbital fracture. Again noted is a polyp or retention cyst in the right maxillary sinus, similar to the 12/11/[address] There is no opacification or air-fluid levels within the paranasal sinuses. Procedure Note Provider, MD Rachael - 01/27/2021 CT MAXILLOFACIAL BONES. HISTORY: Patient has several day history of headache and neck pain withno injury. Chronic frontal sinus pain and pressure for years. FINDINGS: Axial noncontrast CT of the facial bones was performed.Coronal and sagittal reformatted images were created and reviewed. There is noprior CT of the sinuses or facial bones. There is a head CT from 12/11/2014,which included a portion of the sinuses, for reference. There is no evidence of an acute displaced facial bone fracture ordestructive neoplasm. The temporomandibular articulations are preserved. The orbital contours are smooth and regular with no cortical discontinuity or evidenceof orbital fracture. Again noted is a polyp or retention cyst in the right maxillary sinus, similar to the 12/11/[address] There is noopacification or air-fluid levels within the paranasal sinuses. IMPRESSION: Stable polyp or retention cyst in the right maxillary sinus. Otherwise unremarkable CT of the facial bones. Automated exposure control was used as a dose optimization technique forthis examination. THIS IS AN ELECTRONICALLY VERIFIED REPORT 12/14/2015 7:54 PM: Raza Mondragon M.D. Raza Mondragon M.D. RN:christianne 07:54 PM 07:54 PM NOR [EOD] us Historical Provider MD K[facility] CT PROCEDURES Final R esult * CT Head WO Contrast (12/14/2015 12:00 AM CDT) Anatomical Region Laterality Modality Head and Neck N/A Computed Tomogra phy 12/14/2015 Impressions 12/14/2015 7:51 PM CDT Stable appearance of an asymmetric degree of sulcal prominence with normal size of the ventricles in this otherwise normal appearing brain. ?? No acute findings. Automated exposure control was used as a dose optimization technique for this examination. THIS IS AN ELECTRONICALLY VERIFIED REPORT 12/14/2015 7:47 PM: ??Raza Mondragon M.D. ?? Raza Mondragon M.D. RN:christianne 07:47 PM 07:47 PM NOR [EOD] Narrative 12/14/2015 7:[address] BRAIN. HISTORY: ??Headache and neck pain for several days, with no injury. Patient also complains of frontal sinus pain and pressure for several years. FINDINGS: ??Noncontrast CT study of the brain, from vertex to the skull base, was performed. ??There are prior exams from 03/16/2011, 05/09/2012 and 12/11/2014. Stable prominence of the cerebral sulci with normal size and configuration of the ventricles is again noted. ??There is no evidence of an acute ischemic or hemorrhagic infarct. ??There is no space-occupying mass or fluid collection. ?? There is no skull fracture. ??Paranasal sinuses and mastoids are clear. Procedure Note Provider, MD Rachael - 01/27/[address] BRAIN. HISTORY: Headache and neck pain for several days, with no injury. Patient also complains of frontal sinus pain and pressure for several years. FINDINGS: Noncontrast CT study of the brain, from vertex to the skullbase, was performed. There are prior exams from 03/16/2011, 05/09/2012 and12/11/2014. Stable prominence of the cerebral sulci with normal size and configurationof the ventricles is again noted. There is no evidence of an acute ischemicor hemorrhagic infarct. There is no space-occupying mass or fluidcollection. There is no skull fracture. Paranasal sinuses and mastoids are clear. IMPRESSION: Stable appearance of an asymmetric degree of sulcal prominence with normal size of the ventricles in this otherwise normal appearingbrain. No acute findings. Automated exposure control was used as a dose optimization technique forthis examination. THIS IS AN ELECTRONICALLY VERIFIED REPORT 12/14/2015 7:47 PM: Raza Mondragon M.D. Raza Mondragon M.D. 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
--- OUTSIDE RECORDS SUMMARY | 2024-09-10 04:19 | XMS_ITS | Encounter Summary ---
Author Organization [employer] Address [address] [place] [address] Care Team Providers Care Veterinary Medicine Teacher Name Role Phone Unavailable Primary Care Provider Unavailabl e Reason for Visit * Reason Onset Date Comments Information 10/26/2018 Encounter Details Date Type Department Care Team (Late st Contact Info) Description 10/26/2018 Nurse Triage [facility] Nurse rehabilitation counsellor [address] [place] [address] Iwona Bowen, RN Social History Tobacco Use Types Packs/Day Years Used Date Smoking Tobacco: Former Cigarettes 1 2 0 09/13/1993 - 09/13/1995 Smokeless Tobacco: Never Alcohol Use Standard Drinks/Week Comments No 0 (1 standard drink = 0.6 oz pur e alcohol) Sex and Gender Information Value Date Recorded Sex Assigned at Not on file Gender Identity Not on file Sexual Orientation Not on file documented as of this encounter Miscellaneous Notes * Telephone Encounter - Iwona Bowen, RN - 10/26/2018 11:09 AM CST Reason for Disposition ??? [1] Caller requesting NON-URGENT health information AND [2] PCP's office is the best resource Protocols used: INFORMATION ONLY CALL-A- Patient calling wanting information on C diff. He states he stayed at a friends who apparently had C diff. Patient has called his drafting detailer and was put Cipro and Flagyl. His drafting detailer wants to do a colonoscopy but he doesn't think he wants one. Patient kept talking about how doctors only do procedures or surgeries for money. He then would jump back to his friend and how he was irresponsible in not telling him he had C diff. He has had constipation, no foul smelling stool, no abdominal pain only gas/bloating. He then states I'll still go get checked out. His story changed from multiple times. First he was not taking antibiotics now and then he is taking them. Call ended at 34 minutes. UREMENT PSYCHOLOGIST * Telephone Encounter - Iwona Bowen RN - 10/26/2018 10:55 AM CST Regarding: information on C-diff ----- Message from Arely Candie Ecomsual sent at 10/26/2018 10:51 AM MEASUREMENT PSYCHOLOGIST ----- Patient's address on [address]: [address] [place] [address] Patient's current location: Work address Same as above UREMENT PSYCHOLOGIST documented in this encounter Plan of Treatment Not on file documented as of this encounter Visit Diagnoses Not on filedocumented in this encounter
--- OUTSIDE RECORDS SUMMARY | 2024-09-10 04:19 | XMS_ITS | Encounter Summary ---
Author Organization [facility] Address [address] [facility] Attn: Epic Prelude ADT [place] [address] Care Team Providers Care It Support Manager Name Role Phone Unavailable Primary Care Provider Unavailabl e Encounter Details Date Type Department Care Team (Latest Contact Info) Description 12/06/2019 Travel Social History Tobacco Use Types Packs/Day [...] have Coronavirus / COVID-19? No / Unsure 12/06/2019 2:15 AM CDT documented as of this encounter Plan of Treatment Not on file documented as of this encounter Visit Diagnoses Not on filedocumented in this encounter
--- OUTSIDE RECORDS SUMMARY | 2024-09-10 04:19 | XMS_ITS | Encounter Summary ---
[facility] Organization [facility] Address [address] [facility] Attn: Epic Prelude ADT [place] [address] Care Team Providers Care Hydraulic Press Tender Name Role Phone Unavailable Primary Care Provider Unavailabl e Encounter Details Date Type Department Care Team (Latest Contact Info) Description 01/10/2020 Travel Social History Tobacco Use Types Packs/Day [...] have Coronavirus / COVID-19? No / Unsure 01/10/2020 10:40 PM CDT documented as of this encounter Plan of Treatment Not on file documented as of this encounter Visit Diagnoses Not on filedocumented in this encounter
--- OUTSIDE RECORDS SUMMARY | 2024-09-10 04:19 | XMS_ITS | Encounter Summary ---
Author Organization [facility] Address [address] [facility] Attn: Epic Prelude ADT [place] [id number] Care Team Providers Care Racebook Writer Name Role Phone Unavailable Primary Care Provider [...]
--- OUTSIDE RECORDS SUMMARY | 2024-09-10 04:19 | XMS_ITS | Encounter Summary ---
Author Organization [employer] Address [address] [place] [address] Care Team Providers Care Test Deskman Name Role Phone Unavailable Primary Care Provider Unavailabl e Reason for Visit * Reason Onset Date Comments Diarrhea 02/13/2019 Encounter Details Date Type Department Care Team (Late st Contact Info) Description 02/13/2019 Nurse Triage [facility] Nurse space systems operations superintendent [address] [place] [address] Parris Hylton RN Social History Tobacco Use Types Packs/Day [...] encounter Miscellaneous Notes * Telephone Encounter - Parris Hylton RN - 02/13/2019 5:50 AM CDT Reason for Disposition ? ? [1] SEVERE diarrhea (e.g., 7 or more times / day more than normal) AND [2] present > 24 hours (1 day) Protocols used: [id number] Pt stated he has an appointment with PCP today. * Telephone Encounter - Parris Hylton RN - 02/13/2019 5:39 AM CDT Regarding: Magnesium sulfate is working to much ----- Message from Sheryl Green sent at 02/13/2019 5:34 AM CDT ----- Patient's [address] on [address] [address] [place] [address] Patient's current location: Same as above documented in this encounter Plan of Treatment Not on file documented as of this encounter Visit Diagnoses Not on filedocumented in this encounter
--- OUTSIDE RECORDS SUMMARY | 2024-09-10 04:19 | XMS_ITS | Encounter Summary ---
Author Organization [employer] ???[facility] Address 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 Patient reports calling multiple psychiatrists and PCP and he's unable to get medications filled and is afraid of withdrawal. Patient denies SI/HI. * Auth/Cert Specialty Diagnoses / Procedures Referred By Redd t Referred To Contact Emergency Medicine [facility] Emergency Department [address] [place] [address] Referral ID Status Reason Start Date Expiration Date Visits Re quested Visits Authorized [id number] 1 1 Encounter Details Date Type Department Care Team (Late st Contact Info) Description 11/15/2019 2:17 AM RADIOLOGY MANAGER - 11/15/2019 3:15 AM [facility] Emergency [facility] Emergency Department [address] [place] [address] Memo Reece, DO [address] [place] [address] Encounter for medication refill (Primary Dx) Discharge Disposition: Home or Self [...] Sign Reading Time Taken Comments Blood Pressure 186/103 11/15/2019 2:34 AM RADIOLOGY MANAGER Pulse - - Temperature 36.6 ??C (97.8 ??F) 11/15/2019 1:28 AM CS T Respiratory Rate 22 11/15/2019 2:34 AM RADIOLOGY MANAGER Oxygen Saturation 98% 11/15/2019 1:28 AM RADIOLOGY MANAGER Inhaled Oxygen Concentration - - Weight 111.1 kg (245 lb) 11/15/2019 1:28 AM RADIOLOGY MANAGER Height 188 cm (6' 2 ) 11/15/2019 1:28 AM RADIOLOGY MANAGER Body Mass Index 31.46 11/15/2019 1:28 AM RADIOLOGY MANAGER documented in this encounter Discharge Instructions * Attachments The following attachments cannot be sent through Care Everywhere. * Medication Refill (Belarusian) documented in this encounter Medications at Time of Discharge Medication Sig Dispensed Refills Start Date End Date omeprazole (PriLOSEC) 40 mg Capsule, Delayed Release(E.C.) Take 40 mg by mouth daily. ibuprofen (MOTRIN) 600 mg tablet Take 1 Tablet (600 mg) by mouth every 6 hours as needed for Pain, Mild. 20 Tablet None 10/30/2016 fluticasone (FLONASE) 50 mcg/spray [place], Suspension Administer 2 Sprays in each nostril daily. 16 Gram 09/12/2016 promethazine (PHENERGAN) 25 mg tablet Take 1 Tablet (25 mg) by mouth every 6 hours as needed for Nausea. 30 Tablet None 07/17/2016 meclizine (ANTIVERT) 25 mg tabletIndications:Diabet es mellitus type 2, controlled, without complications,Sleep apnea, unspecified sleep apnea type,Benign hypertension Take 25 mg by mouth 2 times daily as needed for Dizziness. atenolol (TENORMIN) 100 mg tablet Take 0.5 Tablet (50 mg) by mouth 2 times daily. 10 Tablet 0 12/03/2015 albuterol 90 mcg/Actuation HFA inhaler Take 2 Puffs by inhalation every 6 hours as needed for Shortness of Breath. documented as of this encounter ED Notes * Bertha Cast GN - 11/15/2019 3:08 AM CST This RN to bedside to present patient with discharge information. Patient not in room. discussedplan of care with patient while he was at the bedside. OLOGY MANAGER * Bertha Cast GN - 11/15/2019 2:48 AM CST Patient refused cardiac monitoring OLOGY MANAGER * Bertha Cast GN - 11/15/2019 2:33 AM CST MD at bedside OLOGY MANAGER * Bertha Cast GN - 11/15/2019 2:19 AM CST Patient stated that he came into the ED tonight for a refill of xanax. Patient stated that he couldnot get in to see a psychiatrist until 12/11. Patient is experiencing some anxiety at this time. Patient stated I attempted to go see Dr. Arriola and he would not see him. Patient did state that he is experiencing some nausea due to his nervousness. Patient stated that he takes Xanax 2mg 5x per day. Patient stated that he has been without medication for 24hrs. OLOGY MANAGER * Dana Noel RN - 11/15/2019 1:51 AM CST Patient reports he attempted to pay mosquera at doctor's office nearby to get prescriptions filled, patient also reports he has a case open against his psychiatrist for not having medications refilled appropriately. OLOGY MANAGER * Memo Reece DO - 11/15/2019 1:26 AM CST HISTORY OF PRESENT ILLNESS Carlos Mcgee, a 49 y.o. male presents to the ED with a Chief Complaint of Medication Refill Subjective 2:31 AM: at bedside Carlos Mcgee is a 49 y.o. male with a past medical history of generalized anxiety disorder, PTSD, and panic attacks presents to the ED for anxiety and requesting a . Associated symptoms include SOB and CP. Patient reports being given 152 mg of Xanax a month by his previous PCP. He reports discontinuing seeing the psychiatrist who fired the patient recently. Pt reports attempting to contact numerous psychiatrist and PCPs who refuse to treat the patient. No other complaints at the moment. History provided by: The patient Arrived by: Private vehicle Arrived from: Home General Associated symptoms: chest pain and shortness of breath Associated symptoms: no abdominal pain, no congestion, no cough, no diarrhea, no ear pain, no fever, no headaches, no nausea, no rash, no rhinorrhea and no vomiting REVIEW OF SYSTEMS Review of Systems Constitutional: Negative for chills, diaphoresis and fever. HENT: Negative for congestion, ear pain, facial swelling, rhinorrhea and voice change. Eyes: Negative for discharge and visual disturbance. Respiratory: Positive for shortness of breath. Negative for cough, chest tightness and stridor. Cardiovascular: Positive for chest pain. Negative for leg swelling. Gastrointestinal: Negative for abdominal pain, diarrhea, nausea and vomiting. Endocrine: Negative for polyuria. Genitourinary: Negative for dysuria and frequency. Musculoskeletal: Negative for arthralgias and back pain. Skin: Negative for rash. Neurological: Negative for speech difficulty, weakness and headaches. Psychiatric/Behavioral: Negative for suicidal ideas. The patient is nervous/anxious. All other systems reviewed and are negative. PAST MEDICAL HISTORY REVIEWED MEDICAL: Patient has a past medical history of Anxiety, Chronic neck pain, Depression (anxiety), Diabetes, Diverticulitis, HTN (hypertension), Panic attacks, and PTSD (post-traumatic stress disorder). SURGICAL: Patient has a past surgical history that includes chg anes removal gallbladder and hx cholecystectomy. FAMILY: Patient's family history includes Diabetes in his maternal grandfather and maternal grandmother; Other in his father; Stroke in his father. SOCIAL: reports that he quit smoking about 24 years ago. His smoking use included cigarettes. He has a 2.00pack-year smoking history. He has never used smokeless tobacco. He reports that he does not drink alcohol or use drugs. No history on file. Social History Other Topics Concern ??? Not on file PROBLEM LIST: Patient has Cervical stenosis of spinal canal; Costochondral chest pain; Paresthesias with subjective weakness; PTSD (post-traumatic stress disorder); GERD (gastroesophageal reflux disease); Diabetesmellitus type 2, controlled, without complications; Blurry vision, bilateral; Anxiety state; Neck pain; Chest pain; Pleuritic chest pain; Sedative, hypnotic or anxiolytic abuse, continuous; Esophageal reflux; Diverticulitis of colon; Depression; Non-specific colitis; Acute abdominal pain; Depression with anxiety; Microcytic anemia; SOB (shortness of breath); Nausea; and Tooth infection on their problem list. ALLERGIES Bactrim [sulfamethoxazole-trimethoprim]; Bystolic [nebivolol]; Carvedilol; Clindamycin; Clonidine; Contrast [iodinated contrast media]; Hydralazine; Levaquin [levofloxacin]; Lidocaine; Lisinopril; Morphine; Paxil [paroxetine hcl]; Pepcid [famotidine]; Percocet [oxycodone-acetaminophen]; Sulfa (sulfo namide antibiotics); and Uroseptic ds HOME MEDICATIONS Discharge Medication List as of 11/15/2019 2:59 AM CONTINUE these medications which have NOT CHANGED Details escitalopram oxalate (LEXAPRO) 20 mg tablet Take 1 Tablet (20 mg) by mouth daily., Disp-30 Tablet, R-0 !! ALPRAZolam (XANAX) 1 mg tablet Take 1 Tablet (1 mg) by mouth 3 times daily as needed for Anxiety., Disp-20 Tablet, R-0 !! ALPRAZolam (XANAX) 2 mg tablet Take 1 Tablet (2 mg) by mouth 3 times daily as needed for Anxiety., Disp-15 Tablet, R-0 sucralfate (CARAFATE) 1 gram tablet Take 1 Tablet (1 Gram) by mouth 4 times daily before meals and at bedtime., Disp-30 Tablet, R-None ondansetron (ZOFRAN ODT) 4 mg Tablet, Rapid Dissolve Place 1 Tablet (4 mg) under tongue every 6 hours as needed for Nausea/Emesis., Disp-30 Tablet, R-0 amoxicillin (AMOXIL) 875 mg tablet Take 1 Tablet (875 mg) by mouth every 12 hours., Disp-20 Tablet,R-None citalopram (CeleXA) 40 mg tablet Take 1 Tablet (40 mg) by mouth daily., Disp-30 Tablet, R-0 HYDROcodone-acetaminophen (NORCO) 5-325 mg tablet Take 1 Tablet by mouth every 4 hours as needed for Pain, Moderate. omeprazole (PriLOSEC) 40 mg Capsule, Delayed Release(E.C.) Take 40 mg by mouth daily. ibuprofen (MOTRIN) 600 mg tablet Take 1 Tablet (600 mg) by mouth every 6 hours as needed for Pain, Mild., Disp-20 Tablet, R-None methylPREDNISolone (MEDROL, BIJU,) 4 mg Tablets, Dose Pack Medrol dose pack as directed., Disp-1 Package, R-None fluticasone (FLONASE) 50 mcg/spray [place], Suspension Administer 2 Sprays in each nostril daily., Disp-16 Gram, R-0 hyoscyamine 0.125 mg Tablet, Sublingual Place 1 Tablet (0.125 mg) under tongue every 4 hours as needed for Spasm., Disp-15 Tablet, R-0 promethazine (PHENERGAN) 25 mg tablet Take 1 Tablet (25 mg) by mouth every 6 hours as needed for Nausea., Disp-30 Tablet, R-None verapamil (CALAN) 40 mg Tablet Take 1 Tablet (40 mg) by mouth every 12 hours., Disp-30 Tablet, R-0 ranitidine (ZANTAC) 150 mg tablet Take 150 mg by mouth daily. meclizine (ANTIVERT) 25 mg tablet Take 25 mg by mouth 2 times daily as needed for Dizziness. atenolol (TENORMIN) 100 mg tablet Take 0.5 Tablet (50 mg) by mouth 2 times daily., Disp-10 Tablet, R-0 albuterol 90 mcg/Actuation HFA inhaler Take 2 Puffs by inhalation every 6 hours as needed for Shortness of Breath. !! - Potential duplicate medications found. Please discuss with provider. Objective PHYSICAL EXAM INITIAL VS BP: (!) 187/99 (11/15/19127), Heart Rate: 65 bpm (11/15/19127), Resp: 16 (11/15/19127), Pulse: (not recorded), Temp: 97.8 ??F (36.6 ??C) (11/15/19127), Temp src: Oral (11/15/19127), SpO2: 98 % (11/15/19127), Height: 6' 2 (188 cm) (11/15/19127), Weight: 111.1 kg (245 lb) (11/15/19127), BMI (Calculated): 31.44 (11/15/19127) No LMP for male patient. Physical Exam Vitals signs and nursing note reviewed. Exam conducted with a interventional radiologist present. Constitutional: General: He is not in acute distress. Appearance: Normal appearance. HENT: Head: Normocephalic and atraumatic. Right Ear: External ear normal. Left Ear: External ear normal. Nose: Nose normal. Mouth/Throat: Mouth: Mucous membranes are moist. Pharynx: Oropharynx is clear. Eyes: Extraocular Movements: Extraocular movements intact. Conjunctiva/sclera: Conjunctivae normal. Pupils: Pupils are equal, round, and reactive to light. Neck: Musculoskeletal: Normal range of motion. No neck rigidity. Trachea: Trachea normal. No tracheal deviation. Cardiovascular: Rate and Rhythm: Normal rate and regular rhythm. Pulses: Radial pulses are 2+ on the right side and 2+ on the left side. Femoral pulses are 2+ on the right side and 2+ on the left side. Dorsalis pedis pulses are 2+ on the right side and 2+ on the left side. Pulmonary: Effort: Pulmonary effort is normal. Breath sounds: Normal breath sounds. No decreased breath sounds, wheezing, rhonchi or rales. Chest: Chest wall: No tenderness. Abdominal: General: Bowel sounds are normal. Palpations: Abdomen is soft. Tenderness: There is no abdominal tenderness. Musculoskeletal: General: No tenderness. Right lower leg: No edema. Left lower leg: No edema. Skin: General: Skin is warm and dry. Findings: No erythema. Neurological: General: No focal deficit present. Mental Status: He is alert. Cranial Nerves: Cranial nerves are intact. Motor: Motor function is intact. Coordination: Coordination is intact. Comments: No evidence of withdrawals at this time. Psychiatric: Attention and Perception: Attention normal. Mood and Affect: Mood and affect normal. Speech: Speech normal. Behavior: Behavior normal. Behavior is cooperative. Thought Content: Thought content normal. Thought content does not include homicidal or suicidal ideation. Judgment: Judgment normal. Pulse Ox Interpretation: Saturation: (%) 98 Oxygen Delivery: Room air Interpretation: No hypoxia at this time. DIAGNOSTICS LAB: No data to display RADIOLOGY: No orders to display No orders to display EKG: PROCEDURES Procedures MEDICAL DECISION MAKING AND PLAN OF CARE ED Course as of Nov 14 442WedNov 15, 2019 0240 Pt notes SOB and CP. Offered pt evaluation but the pt refused at this time. [RT] 0308 Patient left before receiving discharge papers. [RT] ED Course User Index [RT] Joshua Dean Scribe [facility] I have reviewed previous: notes and ECG I have reviewed nursing notes related to past medical history, social history, and review of systems and agree, unless otherwise noted. Presenting to ED for a medication refill. Patient is not tremulous or showing evidence of withdrawal at this time. Patient requesting a refill of his Xanax. Upon hearing that I cannot refill his Xanax but will offer 3 tabs of ativan and prn vistaril the patient notes that he gets chest pain sometimes when his anxiety flares up. I have offered evaluation for the chest pain and the patient refused at this time. Patient refuses the ativan and vistaril. Discharge Medication List as of 11/15/2019 2:59 AM CONTINUE these medications which have NOT CHANGED Details escitalopram oxalate (LEXAPRO) 20 mg tablet Take 1 Tablet (20 mg) by mouth daily., Disp-30 Tablet, R-0 !! ALPRAZolam (XANAX) 1 mg tablet Take 1 Tablet (1 mg) by mouth 3 times daily as needed for Anxiety., Disp-20 Tablet, R-0 !! ALPRAZolam (XANAX) 2 mg tablet Take 1 Tablet (2 mg) by mouth 3 times daily as needed for Anxiety., Disp-15 Tablet, R-0 sucralfate (CARAFATE) 1 gram tablet Take 1 Tablet (1 Gram) by mouth 4 times daily before meals and at bedtime., Disp-30 Tablet, R-None ondansetron (ZOFRAN ODT) 4 mg Tablet, Rapid Dissolve Place 1 Tablet (4 mg) under tongue every 6 hours as needed for Nausea/Emesis., Disp-30 Tablet, R-0 amoxicillin (AMOXIL) 875 mg tablet Take 1 Tablet (875 mg) by mouth every 12 hours., Disp-20 Tablet,R-None citalopram (CeleXA) 40 mg tablet Take 1 Tablet (40 mg) by mouth daily., Disp-30 Tablet, R-0 HYDROcodone-acetaminophen (NORCO) 5-325 mg tablet Take 1 Tablet by mouth every 4 hours as needed for Pain, Moderate. omeprazole (PriLOSEC) 40 mg Capsule, Delayed Release(E.C.) Take 40 mg by mouth daily. ibuprofen (MOTRIN) 600 mg tablet Take 1 Tablet (600 mg) by mouth every 6 hours as needed for Pain, Mild., Disp-20 Tablet, R-None methylPREDNISolone (MEDROL, BIJU,) 4 mg Tablets, Dose Pack Medrol dose pack as directed., Disp-1 Package, R-None fluticasone (FLONASE) 50 mcg/spray [place], Suspension Administer 2 Sprays in each nostril daily., Disp-16 Gram, R-0 hyoscyamine 0.125 mg Tablet, Sublingual Place 1 Tablet (0.125 mg) under tongue every 4 hours as needed for Spasm., Disp-15 Tablet, R-0 promethazine (PHENERGAN) 25 mg tablet Take 1 Tablet (25 mg) by mouth every 6 hours as needed for Nausea., Disp-30 Tablet, R-None verapamil (CALAN) 40 mg Tablet Take 1 Tablet (40 mg) by mouth every 12 hours., Disp-30 Tablet, R-0 ranitidine (ZANTAC) 150 mg tablet Take 150 mg by mouth daily. meclizine (ANTIVERT) 25 mg tablet Take 25 mg by mouth 2 times daily as needed for Dizziness. atenolol (TENORMIN) 100 mg tablet Take 0.5 Tablet (50 mg) by mouth 2 times daily., Disp-10 Tablet, R-0 albuterol 90 mcg/Actuation HFA inhaler Take 2 Puffs by inhalation every 6 hours as needed for Shortness of Breath. !! - Potential duplicate medications found. Please discuss with provider. LAST VS BP: (!) 186/103 (11/15/19233), Heart Rate: 75 bpm (11/15/19233), Resp: 22 (11/15/19233), Pulse: (not recorded), Temp: 97.8 ??F (36.6 ??C) (11/15/19127), Temp src: Oral (11/15/19127), SpO2: 98 % (11/15/19127) CLINICAL IMPRESSION Final diagnoses: [Z76.0] Encounter for medication refill (Primary) DISPOSITION, EDUCATION AND MEDICATION RECONCILIATION Medications reconciled. See after visit summary for patient education on discharged patients. ED Disposition ED Disposition Condition User Date/Time Comment Discharge Stable Memo Reece DO WedNov 15, 2019 2:58 AM ATTESTATION STATEMENTS This note is prepared by Kalyan Lewis acting as a scribe for Memo Reece DO The scribe's documentation has been prepared under my direction and personally reviewed by me in its entirety. I confirm that the note above accurately reflects all work, treatment, procedures, and medical decision making performed by meGwen Reece OLOGY MANAGER documented in this encounter Plan of Treatment Not on file documented as of this encounter Visit Diagnoses Diagnosis Encounter for medication refill- Primary Issue of repeat prescriptions documented in this encounter
--- OUTSIDE RECORDS SUMMARY | 2024-09-10 04:19 | XMS_ITS | Encounter Summary ---
Author Organization [employer] Address [address] [place] [address] Care Team Providers Care Park Keeper Name Role Phone Unavailable Primary Care Provider Unavailabl e Reason for Visit * Reason Comments Anxiety Pt arrives ambulator y to ED due to increased anxiety and shakiness because I ran out of my meds. Pt reports that he ran out of prescribed lexapro and xanax two days ago and has been unable to receive a prescription. Pt denies SI/HI at this time. Pt adds that he has mild LLQ abd pain as well. +nausea. Denies being diabetic, but requesting glucose be checked. Encounter Details Date Type Department Care Team (Late st Contact Info) Description 11/24/2018 12:52 PM CDT - 11/24/2018 3:41 PM CDT Emergency [facility] Emergency Department [address] [place] [address] Jose Soto MD [address] [facility] [place] [address] Depression with anxiety (Primary Dx); Diverticulitis of colon; Depression, unspecified depression type; Anxiety state Discharge Disposition: Home or Self Care Social [...] Reading Time Taken Comments Blood Pressure 159/95 11/24/2018 11:17 AM CDT Pulse - - Temperature 37 ??C (98.6 ??F) 11/24/2018 11:17 AM CDT Respiratory Rate 18 11/24/2018 11:17 AM CDT Oxygen Saturation 98% 11/24/2018 11:17 AM CDT Inhaled Oxygen Concentration - - Weight 117.9 kg (260 lb) 11/24/2018 11:17 AM CDT Height 185.4 cm (6' 1 ) 11/24/2018 11:17 AM CDT Body Mass Index 34.3 11/24/2018 11:17 AM CDT documented in this encounter Discharge Instructions * Discharge Instructions* Jeromy Adhikari MD - 11/24/2018 3:57 PM CDT Schedule an appointment to see your new psychiatrist The emergency department will no longer fill your xanax / lexapro prescriptions so be sure to get in and see a new physician soon * Attachments The following attachments cannot be sent through Care Everywhere. * Generalized Anxiety Disorder: General Info (Lithuanian) * Diverticulitis (Lithuanian) documented in this encounter Medications at Time of Discharge Medication Sig Dispensed Refills Start Date End Date omeprazole (PriLOSEC) 40 mg Capsule, Delayed Release(E.C.) Take 40 mg by mouth daily. ibuprofen (MOTRIN) 600 mg tablet Take 1 Tablet (600 mg) by mouth every 6 hours as needed for Pain, Mild. 20 Tablet None 10/30/2016 fluticasone (FLONASE) 50 mcg/spray [place], Suspension Administer 2 Sprays in each nostril daily. 16 Gram 09/12/2016 promethazine (PHENERGAN) 25 mg tablet Take 1 Tablet (25 mg) by mouth every 6 hours as needed for Nausea. 30 Tablet None 07/17/2016 meclizine (ANTIVERT) 25 mg tabletIndications:Diabe reynold mellitus type 2, controlled, without complications,Sleep apnea, unspecified sleep apnea type,Benign hypertension Take 25 mg by mouth 2 times daily as needed for Dizziness. atenolol (TENORMIN) 100 mg tablet Take 0.5 Tablet (50 mg) by mouth 2 times daily. 10 Tablet 0 12/03/2015 albuterol 90 mcg/Actuation HFA inhaler Take 2 Puffs by inhalation every 6 hours as needed for Shortness of Breath. ciprofloxacin HCl (CIPRO) 500 mg tablet Take 1 Tablet (500 mg) by mouth 2 times daily for 7 days. 14 Tablet None 11/24/2018 12/01/2018 metroNIDAZOLE (FLAGYL) 500 mg tablet Take 1 Tablet (500 mg) by mouth 3 times daily for 7 days. 21 Tablet None 11/24/2018 12/01/2018 documented as of this encounter ED Notes * Hilary Weiner - 11/24/2018 2:58 PM CDT This PCT at bedside to answer call light. Patient states that he would like to speak to the resident again to talk about his stomach. Care team notified * Hilary Weiner - 11/24/2018 2:43 PM CDT This PCT at bedside to answer call light. Patient states that he would like to speak to the resident. Care team notified * Alba Weiss RN - 11/24/2018 1:30 PM CDT Pt arrived to ED c/o anxiety and LLQ pain. Agree w/ triage note. Pt reports not being able to get ahold of his physician to get his prescriptions refilled. States last took medication 2 days ago. Denies SI/HI. Pt also reports having a history of a mass in his sigmoid colon and has been having LLQ pain and nausea. Denies diarrhea. Pt a&ox4. Respirations even and unlabored. Skin PWD. POC review ed * Jesus Tony RN - 11/24/2018 11:21 AM CDT We promote safety at our facility and do not allow any type of weapon in the building. Do you have a weapon or something that could be used as a weapon on you today? denied possession of any weapons or firearms at this time * Jose Soto MD - 11/24/2018 10:55 AM CDT HISTORY OF PRESENT ILLNESS Carlos Mcgee, a 48 y.o. male presents to the ED with a Chief Complaint of Anxiety Subjective Patient presents to the ED with complaint of anxiety. Patient is completely out of his psych meds. Currently endorses taking alprazolam and lexapro Has had same psychiatrist since September 2017. Has been in 3 times for medications. Patient concerned about current psychiatrist because he feels she is making inappropriate advances. Patient states that current psychiatrist doesn't feel like they are an appropriate match. Patient doesn't feel comfortablein current situation. Feels like she is being vindictive and is not prescribing him medications. Patient has been calling psychiatrist and haven't been able to reach the office. Pharmacy sent a fax and doctor is saying he is no longer a patient. Review of the medical record reveals the patient frequents the emergency room often. He has a documented history of prescription medication abuse in his problem list. Seen multiple times in the previous year for similar complaints. REVIEW OF SYSTEMS Review of Systems Constitutional: Positive for chills, diaphoresis and fever. Subjective fevers HENT: Positive for sore throat. Negative for congestion and rhinorrhea. Eyes: Positive for discharge and itching. Respiratory: Positive for shortness of breath. Negative for cough and wheezing. Cardiovascular: Positive for palpitations. Negative for chest pain. Gastrointestinal: Positive for abdominal pain and nausea. Negative for blood in stool, constipation, diarrhea and vomiting. Genitourinary: Positive for frequency. Negative for dysuria. Musculoskeletal: Positive for arthralgias and back pain. Neurological: Positive for dizziness, light-headedness and headaches. Hematological: Negative for adenopathy. Does not bruise/bleed easily. Psychiatric/Behavioral: Positive for dysphoric mood. Negative for self-injury and suicidal ideas. The patient is nervous/anxious. PAST MEDICAL HISTORY REVIEWED MEDICAL: Patient has a past medical history of Anxiety; Chronic neck pain; Depression (anxiety); Diabetes; Diverticulitis; HTN (hypertension); Panic attacks; and PTSD (post-traumatic stress disorder). SURGICAL: Patient has a past surgical history that includes chg anes removal gallbladder and hx cholecystectomy. FAMILY: Patient's family history includes Diabetes in his maternal grandfather and maternal grandmother; Other in his father; Stroke in his father. SOCIAL: reports that he quit smoking about 23 years ago. His smoking use included Cigarettes. He has a 2.00pack-year smoking history. He [...] of breath); Nausea; and Tooth infection on his problem list. ALLERGIES Bactrim [sulfamethoxazole-trimethoprim]; Bystolic [nebivolol]; Carvedilol; Clindamycin; Clonidine; Contrast [iodinated contrast- oral and iv dye]; Hydralazine; Levaquin [levofloxacin]; Lidocaine; Lisinopril; Morphine; Paxil [paroxetine hcl]; Pepcid [famotidine]; Percocet [oxycodone-acetaminophen]; Sulfa (sulfonamide antibiotics); and Uroseptic ds HOME MEDICATIONS Discharge Medication List as of 11/24/2018 3:25 PM START taking these medications Details ciprofloxacin HCl (CIPRO) 500 mg tablet Take 1 Tablet (500 mg) by mouth 2 times daily for 7 days., Disp-14 Tablet, R-None metroNIDAZOLE (FLAGYL) 500 mg tablet Take 1 Tablet (500 mg) by mouth 3 times daily for 7 days., Disp-21 Tablet, R-None CONTINUE these medications which have CHANGED Details escitalopram oxalate (LEXAPRO) 20 mg tablet Take 1 Tablet (20 mg) by mouth daily., Disp-30 Tablet, R-0 !! ALPRAZolam (XANAX) 1 mg tablet Take 1 Tablet (1 mg) by mouth 3 times daily as needed for Anxiety., Disp-10 Tablet, R-0 !! - Potential duplicate medications found. Please discuss with provider. CONTINUE these medications which have NOT CHANGED Details !! ALPRAZolam (XANAX) 2 mg tablet Take [...] Disp-1 Package, R-None fluticasone (FLONASE) 50 mcg/spray [place], Suspension Administer 2 Sprays in each nostril [...] Objective PHYSICAL EXAM INITIAL VS BP: (!) 159/95 (11/24/181116), Heart Rate: 76 bpm (11/24/181116), Resp: 18 (11/24/181116), Pulse: (not recorded), Temp: 98.6 ??F (37 ??C) (11/24/181116), Temp src: Oral (11/24/181116), SpO2: 98 % (11/24/181116), Height: 6' 1 (185.4 cm) (11/24/181116), Weight: 117.9 kg (260 lb) (11/24/181116), BMI (Calculated): 34.31 (11/24/181116) No LMP for male patient. Physical Exam Constitutional: He is oriented to person, place, and time. He appears well- developed and well-nourished. No distress. HENT: Head: Normocephalic and atraumatic. Eyes: Pupils are equal, round, and reactive to light. EOM are normal. No scleral icterus. Neck: Normal range of motion. Cardiovascular: Normal rate, regular rhythm and normal heart sounds. Exam reveals no gallop and no friction rub. No murmur heard. Pulmonary/Chest: Effort normal and breath sounds normal. No respiratory distress. He has no wheezes. Abdominal: Soft. Bowel sounds are normal. He exhibits no distension. There is tenderness. Musculoskeletal: He exhibits no edema. Neurological: He is alert and oriented to person, place, and time. Skin: Skin is warm and dry. He is not diaphoretic. Psychiatric: His mood appears anxious. His speech is tangential. He is withdrawn. DIAGNOSTICS LAB: POC GLUCOSE - Abnormal Result Value POC GLUCOSE 158 (*) PIN INSERTER NAME JESUS TONY POC GLUCOSE RADIOLOGY: No orders to display No orders to display EKG: PROCEDURES Procedures MEDICAL DECISION MAKING AND PLAN OF CARE MDM Summary Statement: Patient requesting medication refills for anxiety medications. Patient here multiple times with thesame story about his psychiatrist making unwanted advances on him. He has previously requested the same medications for refill in our ED and has been told that he needs to acquire a new psychiatrist.Denies suicidal / homicidal ideation. After discussion with multiple providers the patient also endorsed some LLQ pain similar to his previous diverticulitis pain. He says he was treated for this in the past with cipro and flagyl and was requesting the same medication again. Patient did have some tenderness to palpation in the LLQ. Diagnostic Considerations: Malingering Diversion Anxiety Diveritculitis Borderline personality disorder Clinical Course: Patient was told that we will no longer be filling his prescriptions for psych medications and thathe needs to get a new psychiatrist. The patient mentioned to the attending physician Dr. Soto that he already had a new psychiatrist but was waiting for his records to be transferred over. Prescription was provided for 10 1mg alprazolam, along with a month supply of lexapro, and a 7 day course of cipro/flagyl for diverticulitis flair. The patient was advised to call his psychiatrist for future refills. Attending Note: Patient seen and examined independent of resident. Agree with findings, note, and plan of care. Specifically, patient is known well to me. He states his psychiatrist is hitting on him and he can't go to her for medications. He presented with the same complaint in August. Patients wants Xanax and Lexapro. Will refill meds (only half dose of Xanax-1 mg) but patient told he will not get his meds filled in the ED again. Discharge Medication List as of 11/24/2018 3:25 PM START taking these medications Details ciprofloxacin HCl (CIPRO) 500 mg tablet Take 1 Tablet (500 mg) by mouth 2 times daily for 7 days., Disp-14 Tablet, R-None metroNIDAZOLE (FLAGYL) 500 mg tablet Take 1 Tablet (500 mg) by mouth 3 times daily for 7 days., Disp-21 Tablet, R-None CONTINUE these medications which have CHANGED Details escitalopram oxalate (LEXAPRO) 20 mg tablet Take 1 Tablet (20 mg) by mouth daily., Disp-30 Tablet, R-0 !! ALPRAZolam (XANAX) 1 mg tablet Take 1 Tablet (1 mg) by mouth 3 times daily as needed for Anxiety., Disp-10 Tablet, R-0 !! - Potential duplicate medications found. Please discuss with provider. CONTINUE these medications which have NOT CHANGED Details !! ALPRAZolam (XANAX) 2 mg tablet Take [...] Disp-1 Package, R-None fluticasone (FLONASE) 50 mcg/spray [place], Suspension Administer 2 Sprays in each nostril [...] discuss with provider. LAST VS BP: (!) 159/95 (11/24/181116), Heart Rate: 76 bpm (11/24/181116), Resp: 18 (11/24/181116), Pulse: (not recorded), Temp: 98.6 ??F (37 ??C) (11/24/181116), Temp src: Oral (11/24/181116), SpO2: 98 % (11/24/181116) CLINICAL IMPRESSION Final diagnoses: [K57.32] Diverticulitis of colon [F32.9] Depression, unspecified depression type [F41.1] Anxiety state [F41.8] Depression with anxiety (Primary) DISPOSITION, EDUCATION AND MEDICATION RECONCILIATION Medications reconciled. See after visit summary for patient education on discharged patients. ED Disposition ED Disposition Condition User Date/Time Comment Discharge Stable Jeromy Adhikari MD [facility] Nov 24, 2018 2:57 PM ATTESTATION STATEMENTS documented in this encounter Plan of Treatment Not on file documented as of this encounter Procedures Procedure Name Priority Date/Time Associated Diagnosis Comments POC GLUCOSE Stat 11/24/2018 11:28 AM CDT documented in this encounter Results * (ABNORMAL) POC GLUCOSE (11/24/2018 11:28 AM CDT) GLUCOSE POC 158(H) 74 - 99 mg/dL 11/24/2018 11:41 AM CDT [facility] PIN INSERTER NAME POC JESUS TONY 11/24/2018 11:41 AM CDT [facility] Whole blood specimen (specimen) 11/24/2018 11:28 AM CDT 11/24/2018 11:41 AM CDT Interface Provider Poct POINT OF CARE TE STING [facility]# [id number] [place] [address] documented in this encounter Visit Diagnoses Diagnosis Depression with anxiety- Primary Dysthymic disorder Diverticulitis of colon Diverticulitis of colon (without mention of hemorrhage) Depression, unspecified depression type Anxiety state Anxiety state, unspecified documented in this encounter
--- OUTSIDE RECORDS SUMMARY | 2024-09-10 04:19 | XMS_ITS | Encounter Summary ---
Author Organization [employer] Address [address] [place] [address] Care Team Providers Care Head Filter Press Tender Name Role Phone Unavailable Primary Care Provider Unavailabl e Reason for Visit * Reason Onset Date Comments Dizziness 04/01/2019 Encounter Details Date Type Department Care Team (Late st Contact Info) Description 04/01/2019 Nurse Triage [facility] Nurse electronics assembler [address] [place] [address] Emma Goetz RN Social History Tobacco Use Types Packs/Day [...] encounter Miscellaneous Notes * Telephone Encounter - Emma Goetz RN - 04/01/2019 10:38 AM CDT Reason for Disposition ??? Patient sounds very sick or weak to the triager Protocols used: DIZZINESS - [id number] * Telephone Encounter - Emma Goetz RN - 04/01/2019 10:29 AM CDT Difficult caller c/o a variety/ numerous symptoms also c/o care of different at ED's and he was banned from an ED, speaks about suing doctors. Attempted to triage and answers his questions, suggestedhe seek care in ED. Pt refuses. Arguementive during call. * Telephone Encounter - Emma Goetz RN - 04/01/2019 10:09 AM CDT Regarding: Shaky and light headed (BP 149/92) (per ED) ----- Message from Zara Gates sent at 04/01/2019 9:41 AM CDT ----- Patient's address on file: [address] [place] [address] Patient's current location: Unknown Pt doesn't want to give address to current location documented in this encounter Plan of Treatment Not on file documented as of this encounter Visit Diagnoses Not on filedocumented in this encounter
--- OUTSIDE RECORDS SUMMARY | 2024-09-10 04:19 | XMS_ITS | Encounter Summary ---
Author Organization [employer] Address [address] [place] [address] Care Team Providers Care Leather Stripping Machine Operator Name Role Phone Unavailable Primary Care Provider Unavailabl e Reason for Visit * Reason Onset Date Comments Hypertension 03/21/2019 Encounter Details Date Type Department Care Team (Late st Contact Info) Description 03/21/2019 Nurse Triage [facility] Nurse corporate consultant [address] [place] [address] Parris Hylton RN Social History [...] Telephone Encounter - Parris Hylton RN - 03/21/2019 12:45 AM CDT Reason for Disposition ? ? [1] Systolic BP >= 160 OR Diastolic >= 100 AND [2] cardiac or neurologic symptoms (e.g., chest pain, difficulty breathing, unsteady gait, blurred vision) Protocols used: HIGH BLOOD [id number] * Telephone Encounter - Parris Hylton RN - 03/21/2019 12:35 AM CDT Regarding: I want to ask questions about blood pressure. ----- Message from Danika Costello sent at 03/21/2019 12:32 AM CDT ----- Patient's address on file: [address] [place] [address] Patient's current location: Same as above documented in this encounter Plan of Treatment Not on file documented as of this encounter Visit Diagnoses Not on filedocumented in this encounter
--- OUTSIDE RECORDS SUMMARY | 2024-09-10 04:19 | XMS_ITS | Encounter Summary ---
Author [facility] Address [address] [facility] Attn: Epic Prelude ADT FAZAL GORMAN [address] Care Team Providers Care Dining Room Coordinator Name Role Phone Unavailable Primary Care Provider Unavailabl e Encounter Details Date Type Department Care Team (Latest Contact Info) Description 09/21/2020 Travel Social History Tobacco Use Types Packs/Day [...] have Coronavirus / COVID-19? No / Unsure 09/21/2020 6:04 AM COUPLING MACHINE OPERATOR documented as of this encounter Plan of Treatment Not on file documented as of this encounter Visit Diagnoses Not on filedocumented in this encounter
--- OUTSIDE RECORDS SUMMARY | 2024-09-10 04:19 | XMS_ITS | Encounter Summary ---
Author Organization [employer] Address [address] [place] [address] Care Team Providers Care Environmental Epidemiologist Name Role Phone Unavailable Primary Care Provider Unavailabl e Reason for Visit * Reason Onset Date Comments Nausea 10/07/2020 Encounter Details Date Type Department Care Team (Late st Contact Info) Description 10/07/2020 Nurse Triage [facility] Nurse rehabilitation services manager [address] [place] [address] Parris Hylton RN Social History [...] have Coronavirus / COVID-19? No / Unsure 10/07/2020 2:03 AM BARREL LEVELER documented as of this encounter Miscellaneous Notes * Telephone Encounter - Parris Hylton RN - 10/07/2020 2:12 AM CST Reason for Disposition ? ? Nausea lasts > 1 week Protocols used: NAUSEA-A-AH EL LEVELER documented in this encounter Plan of Treatment Not on file documented as of this encounter Visit Diagnoses Not on filedocumented in this encounter
--- OUTSIDE RECORDS SUMMARY | 2024-09-10 04:19 | XMS_ITS | Encounter Summary ---
Author Organization [facility] Address [address] [place] [address] Care Team Providers Care Lead Manufacturing Engineer Name Role Phone Unavailable Primary Care Provider Unavailabl e Reason for Visit * Reason Comments Multiple Medical Problems Patient to ED for medication refill of Xanax that he lost , arrives with a police report because they don't make a report for just anyone . Hx of here for same. Also c/o nausea, middle abdominal pain since last Wednesday. Denies known fever or vomiting. Denies SI. Patient also c/o getting some nosebleeds. * Auth/Cert Specialty Diagnoses / Procedures Referred By Redd mobley Referred To Contact Emergency Medicine [facility] Emergency Dept [address] [place] [address] Referral ID Status Reason Start Date Expiration Date Visits Re quested Visits Authorized [id number] 1 1 Encounter Details Date Type Department Care Team (Late st Contact Info) Description 08/21/2018 12:29 AM COLLAR BASTER - 08/21/2018 2:51 AM [facility] Emergency [facility] Emergency Department [address] [place] [address] Jose Soto MD [address] [facility] [place] [address] Anxiety state (Primary Dx) Discharge Disposition: Home or Self [...] Sign Reading Time Taken Comments Blood Pressure 139/90 08/21/2018 2:49 AM COLLAR BASTER Pulse - - Temperature 37.3 ??C (99.1 ??F) 08/21/2018 12:[address] Respiratory Rate 16 08/21/2018 2:49 AM COLLAR BASTER Oxygen Saturation 98% 08/21/2018 2:49 AM COLL[facility] BASTER Inhaled Oxygen Concentration - - Weight 108.9 kg (240 lb) 08/21/2018 12:25 AM COLLAR BASTER Height 188 cm (6' 2 ) 08/21/2018 12:25 AM COLLAR BASTER Body Mass Index 30.81 08/21/2018 12:25 AM COLLAR BASTER documented in this encounter Discharge Instructions * Discharge Instructions* Alexandria Miller - 08/21/2018 12:56 AM [facility] Counseling Referrals [facility] ([facility]) -[phone] [facility]) - [phone] [facility] - [phone] [facility] - [phone] [facility] - [phone] [facility] - [phone] [facility] ([facility]) - [phone] [facility] - [phone] [facility] ([facility]) - [phone] [facility] - [phone] [facility] ([facility]) - [phone] [facility] - [phone] [facility] - [phone] [facility]) - [phone] [facility] ([place]) - [phone] [facility] ([place]) - [phone] [facility] ([place]) - [phone] [facility] - [phone] [facility] ([place]) - [phone] [facility] ([facility]) - [phone] [facility]) - [phone] [facility] - [phone] [facility] - [phone] [facility] - [phone] [facility] Psychological Services - [phone] [facility] ([place]) - [phone] [facility] - [phone] [facility] ([place]) - [phone] [facility] ([place]) - [phone] [facility] ([place]) - [phone] [facility] ([place]) - [phone] [facility] ([place]) - [phone] [facility] ([place]) - [phone] [facility] ([place]) - [phone] [facility]) - [phone] [facility]) - [phone] [facility]) - [phone] [facility] ([place]) - [phone] [facility] ([place]) - [phone] [facility] ([place]) - [phone] [place] [facility] - [phone] AR BASTER documented in this encounter Medications at Time of Discharge Medication Sig Dispensed Refills Start Date End Date omeprazole (PriLOSEC) 40 mg Capsule, Delayed Release(E.C.) Take 40 mg by mouth daily. ibuprofen (MOTRIN) 600 mg tablet Take 1 Tablet (600 mg) by mouth every 6 hours as needed for Pain, Mild. 20 Tablet None 10/30/2016 fluticasone (FLONASE) 50 mcg/spray [place], Suspension Administer 2 Sprays in each nostril [...] hours as needed for Shortness of Breath. escitalopram oxalate (LEXAPRO) 20 mg tablet Take 1 Tablet (20 mg) by mouth daily. 30 Tablet 1 08/16/2017 11/24/2018 documented as of this encounter Progress Notes * Alexandria Miller - 08/21/2018 12:56 AM CST Per Pt RN entered d/c referrals for counseling. AR BASTER documented in this encounter ED Notes * Maia Greene RN - 08/21/2018 2:49 AM CST Pt given resources and explained follow up care. Pt denies needs and concerns at this time. AR BASTER * Chastity Christensen RN - 08/21/2018 1:40 AM CST Attempted to discharge pt per MD order. Pt stating I cant believe you're sending me home without blood work, I want to speak to the doctor . MD notified. AR BASTER * Maia Greene RN - 08/21/2018 12:54 AM CST Pt to ED with reports of having personal issues with current psychiatrist and this has interrupted xanax availability. Pt reports being off of xanax for past two days and has increased anxiety accompanied with abdominal pain. Pt irratic in stories and jumping from topic to topic. Also comes with police report to validate story of lost xanax. MD at bedside. AR BASTER * Jovan Carrizales RN - 08/21/2018 12:27 AM CST We promote safety at our facility and do not allow any type of weapon in the building. Do you have a weapon or something that could be used as a weapon on you today? denied possession of any weapons or firearms at this time AR BASTER * Jose Soto MD - 08/21/2018 12:20 AM CST HISTORY OF PRESENT ILLNESS Carlos Mcgee, a 48 y.o. male presents to the ED with a Chief Complaint of Multiple Medical Problems Subjective 12:44 AM: Carlos Mcgee is a 48 y.o. male with a history of PTSD, depression and anxiety, who presents to the Emergency Department with complaints related to his Xanax prescription. Pt arrives to ED with Police report stating that his Rx was lost . After repeatedly calling his PCP and pharmacy today, he visits the ED wishing to have his prescription refilled. He states that he currently takes2 mg Xanax three times a day. Likewise, pt states that he is uncomfortable with his current psychiatrist and is seeking referral for a replacement. Physician(s): No primary care provider on file. History provided by: The patient surveillance manager used: No Arrived by: Private vehicle Arrived from: Home REVIEW OF SYSTEMS Review of Systems Constitutional: Negative for activity change, appetite change and fatigue. HENT: Negative for nosebleeds. Eyes: Negative for pain and itching. Respiratory: Negative for shortness of breath and wheezing. Cardiovascular: Negative for chest pain, palpitations and leg swelling. Gastrointestinal: Positive for abdominal pain (diffuse). Negative for vomiting. Genitourinary: Negative for dysuria and hematuria. Musculoskeletal: Negative for back pain, myalgias and neck pain. Neurological: Negative for seizures and headaches. Psychiatric/Behavioral: Negative for agitation and confusion. PAST MEDICAL HISTORY REVIEWED MEDICAL: Patient has [...] SOCIAL: reports that he quit smoking about 22 years ago. His smoking use included Cigarettes. [...] (sulfonamide antibiotics); and Uroseptic ds HOME MEDICATIONS Current Discharge Medication List CONTINUE these medications which have CHANGED Details ALPRAZolam (XANAX) 2 mg tablet Take 1 Tablet (2 mg) by mouth 3 times daily as needed for Anxiety. Qty: 15 Tablet, Refills: 0 CONTINUE these medications which have NOT CHANGED Details ondansetron (ZOFRAN ODT) 4 mg Tablet, Rapid Dissolve Place 1 Tablet (4 mg) under tongue every 6 hours as needed for Nausea/Emesis. Qty: 30 Tablet, Refills: 0 escitalopram oxalate (LEXAPRO) 20 mg tablet Take 1 Tablet (20 mg) by mouth daily. Qty: 30 Tablet, Refills: 1 amoxicillin (AMOXIL) 875 mg tablet Take 1 Tablet (875 mg) by mouth every 12 hours. Qty: 20 Tablet, Refills: None amoxicillin-clavulanate (AUGMENTIN) 875-125 mg tablet Take 1 Tablet by mouth every 12 hours. citalopram (CeleXA) 40 mg tablet Take 1 Tablet (40 mg) by mouth daily. Qty: 30 Tablet, Refills: 0 HYDROcodone-acetaminophen (NORCO) 5-325 mg tablet Take 1 Tablet by mouth every 4 hours as needed for Pain, Moderate. sucralfate (CARAFATE) 1 gram tablet Take 1 Tablet (1 Gram) by mouth 4 times daily before meals and at bedtime. Qty: 21 Tablet, Refills: none omeprazole (PriLOSEC) 40 mg Capsule, Delayed Release(E.C.) Take 40 mg by mouth daily. ibuprofen (MOTRIN) 600 mg tablet Take 1 Tablet (600 mg) by mouth every 6 hours as needed for Pain, Mild. Qty: 20 Tablet, Refills: None methylPREDNISolone (MEDROL, BIJU,) 4 mg Tablets, Dose Pack Medrol dose pack as directed. Qty: 1 Package, Refills: None fluticasone (FLONASE) 50 mcg/spray [place], Suspension Administer 2 Sprays in each nostril daily. Qty: 16 Gram, Refills: 0 hyoscyamine 0.125 mg Tablet, Sublingual Place 1 Tablet (0.125 mg) under tongue every 4 hours as needed for Spasm. Qty: 15 Tablet, Refills: 0 promethazine (PHENERGAN) 25 mg tablet Take 1 Tablet (25 mg) by mouth every 6 hours as needed for Nausea. Qty: 30 Tablet, Refills: None verapamil (CALAN) 40 mg Tablet Take 1 Tablet (40 mg) by mouth every 12 hours. Qty: 30 Tablet, Refills: 0 Associated Diagnoses: Diabetes mellitus type 2, controlled, without complications; Sleep apnea, unspecified sleep apnea type; Benign hypertension ranitidine (ZANTAC) 150 mg tablet Take 150 mg by mouth daily. Associated Diagnoses: Diabetes mellitus type 2, controlled, without complications; Sleep apnea, unspecified sleep apnea type; Benign hypertension meclizine (ANTIVERT) 25 mg tablet Take 25 mg by mouth 2 times daily as needed for Dizziness. Associated Diagnoses: Diabetes mellitus type 2, controlled, without complications; Sleep apnea, unspecified sleep apnea type; Benign hypertension atenolol (TENORMIN) 100 mg tablet Take 0.5 Tablet (50 mg) by mouth 2 times daily. Qty: 10 Tablet, Refills: 0 albuterol 90 mcg/Actuation HFA inhaler Take 2 Puffs by inhalation every 6 hours as needed for Shortness of Breath. Objective PHYSICAL EXAM INITIAL VS BP: (!) 151/91 (08/21/1824), Heart Rate: 79 bpm (08/21/1824), Resp: 18 (08/21/1824), Temp:99.1 ??F (37.3 ??C) (08/21/1824), Temp src: Oral (08/21/1824), SpO2: 100 % (08/21/1824), Height: 6' 2 (188 cm) (08/21/1824), Weight: 108.9 kg (240 lb) (08/21/1824), BMI (Calculated): 30.8 (08/21/1824) No LMP for male patient. Physical Exam Constitutional: He is oriented to person, place, and time. HENT: Head: Normocephalic and atraumatic. Eyes: Pupils are equal, round, and reactive to light. Conjunctivae are normal. Neck: Normal range of motion. Neck supple. No tracheal deviation present. Cardiovascular: Normal rate, regular rhythm and normal [...] range of motion. He exhibits no tenderness. Neurological: He is alert and oriented to person, place, and time. No cranial nerve deficit. Skin: Skin is warm and dry. No rash noted. Psychiatric: He has a normal mood and affect. His behavior is normal. Nursing note and vitals reviewed. DIAGNOSTICS LAB: No data to display RADIOLOGY: No orders to display No orders to display EKG: PROCEDURES Procedures MEDICAL DECISION MAKING AND PLAN OF CARE On initial encounter, discussed plan to discharge patient home with medication and psych referral. 1:30 AM. When presented with plan for discharge, patient has concern for diffuse abdominal pain andnausea. Labs will be ordered for further management of care. 2:43 AM. Updated patient on plan for d/c. Pt is comfortable with this plan. No further complaints at this time. MDM Summary Statement: 48 year old male presents to the ED wishing to have his Xanax prescription refilled. During his visit to ED, patient also began to complain of abdominal pain, and labs were ordered. Findings were unremarkable. Patient was discharged with five day supply of Xanax and instructions for outpatient follow up with psychiatry in 1 week. I have reviewed previous: notes I have reviewed current: labs I have reviewed nursing notes related to past medical history, social history, and review of systems and agree, unless otherwise noted. Current Discharge Medication List CONTINUE these medications which have CHANGED Details ALPRAZolam (XANAX) 2 mg tablet Take 1 Tablet (2 mg) by mouth 3 times daily as needed for Anxiety. Qty: 15 Tablet, Refills: 0 CONTINUE these medications which have NOT CHANGED Details ondansetron (ZOFRAN ODT) 4 mg Tablet, Rapid Dissolve Place 1 Tablet (4 mg) under tongue every 6 hours as needed for Nausea/Emesis. Qty: 30 Tablet, Refills: 0 escitalopram oxalate (LEXAPRO) 20 mg tablet Take 1 Tablet (20 mg) by mouth daily. Qty: 30 Tablet, Refills: 1 amoxicillin (AMOXIL) 875 mg tablet Take 1 Tablet (875 mg) by mouth every 12 hours. Qty: 20 Tablet, Refills: None amoxicillin-clavulanate (AUGMENTIN) 875-125 mg tablet Take 1 Tablet by mouth every 12 hours. citalopram (CeleXA) 40 mg tablet Take 1 Tablet (40 mg) by mouth daily. Qty: 30 Tablet, Refills: 0 HYDROcodone-acetaminophen (NORCO) 5-325 mg tablet Take 1 Tablet by mouth every 4 hours as needed for Pain, Moderate. sucralfate (CARAFATE) 1 gram tablet Take 1 Tablet (1 Gram) by mouth 4 times daily before meals and at bedtime. Qty: 21 Tablet, Refills: none omeprazole (PriLOSEC) 40 mg Capsule, Delayed Release(E.C.) Take 40 mg by mouth daily. ibuprofen (MOTRIN) 600 mg tablet Take 1 Tablet (600 mg) by mouth every 6 hours as needed for Pain, Mild. Qty: 20 Tablet, Refills: None methylPREDNISolone (MEDROL, BIJU,) 4 mg Tablets, Dose Pack Medrol dose pack as directed. Qty: 1 Package, Refills: None fluticasone (FLONASE) 50 mcg/spray [place], Suspension Administer 2 Sprays in each nostril daily. Qty: 16 Gram, Refills: 0 hyoscyamine 0.125 mg Tablet, Sublingual Place 1 Tablet (0.125 mg) under tongue every 4 hours as needed for Spasm. Qty: 15 Tablet, Refills: 0 promethazine (PHENERGAN) 25 mg tablet Take 1 Tablet (25 mg) by mouth every 6 hours as needed for Nausea. Qty: 30 Tablet, Refills: None verapamil (CALAN) 40 mg Tablet Take 1 Tablet (40 mg) by mouth every 12 hours. Qty: 30 Tablet, Refills: 0 Associated Diagnoses: Diabetes mellitus type 2, controlled, without complications; Sleep apnea, unspecified sleep apnea type; Benign hypertension ranitidine (ZANTAC) 150 mg tablet Take 150 mg by mouth daily. Associated Diagnoses: Diabetes mellitus type 2, controlled, without complications; Sleep apnea, unspecified sleep apnea type; Benign hypertension meclizine (ANTIVERT) 25 mg tablet Take 25 mg by mouth 2 times daily as needed for Dizziness. Associated Diagnoses: Diabetes mellitus type 2, controlled, without complications; Sleep apnea, unspecified sleep apnea type; Benign hypertension atenolol (TENORMIN) 100 mg tablet Take 0.5 Tablet (50 mg) by mouth 2 times daily. Qty: 10 Tablet, Refills: 0 albuterol 90 mcg/Actuation HFA inhaler Take 2 Puffs by inhalation every 6 hours as needed for Shortness of Breath. LAST VS BP: (!) 151/91 (08/21/1824), Heart Rate: 79 bpm (08/21/1824), Resp: 18 (08/21/1824), Temp:99.1 ??F (37.3 ??C) (08/21/1824), Temp src: Oral (08/21/1824), SpO2: 100 % (08/21/1824) CLINICAL IMPRESSION Final diagnoses: [F41.1] Anxiety state (Primary) DISPOSITION, EDUCATION AND MEDICATION RECONCILIATION Medications reconciled. See after visit summary for patient education on discharged patients. ED Disposition ED Disposition Condition User Date/Time Comment Discharge Stable Jose Soto MD [place] Aug 21, 2018 12:55 AM ATTESTATION STATEMENTS This note has been prepared by Sahla Herrera acting as a scribe for Dr. Jose Soto on 08/21/2018at 1:02 AM. The scribe's documentation has been prepared under my direction and personally reviewed by me, Andres, in its entirety on 08/21/18 at 1:02 AM. I confirm that the note above accurately reflectsall work, treatment, procedures, and medical decision making performed by me. AR BASTER documented in this encounter Plan of Treatment Not on file documented as of this encounter Procedures Procedure Name Priority Date/Time Associated Diagnosis Comments CBC WITH DIFFERENTIAL Stat 08/21/2018 1:40 AM COLLAR BASTER LIPASE Stat 08/21/2018 1:40 AM COLL[facility] BASTER COMPREHENSIVE METABOLIC PANEL Stat 08/21/2018 1:40 AM COLLAR BASTER documented in this encounter Results * LIPASE (08/21/2018 1:40 AM COLLAR BASTER) LIPASE 32 13 - 60 U/L 08/21/2018 6:22 AM COLLAR BASTER [facility] [employer] [facility] Blood Venipuncture / Unknown 08/21/2018 1:40 AM COLLAR BASTER 08/21/2018 1:43 AM COLLAR BASTER Jose Soto MD CHEMISTRY ORDERABLES [facility]# [id number] [address] [place] [id number] * (ABNORMAL) COMPREHENSIVE METABOLIC PANEL (08/21/2018 1:40 AM COLLAR BASTER) SODIUM 142 136 - 145 mmol/L 08/21/2018 2:10 AM COLL[facility] BASTER [facility] POTASSIUM 3.6 3.5 - 5.0 mmol/L 08/21/2018 2:10 AM [facility] CHLORIDE 104 98 - 107 mmol/L 08/21/2018 2:10 AM [facility] CO2 27 22 - 29 mmol/L 08/21/2018 2:10 AM [facility] CALCIUM 9.5 8.6 - 10.2 mg/dL 08/21/2018 2:10 AM [facility] BUN 7 6 - 20 mg/dL 08/21/2018 2:10 AM [facility] CREATININE 1.06 0.67 - 1.17 mg/dL 08/21/2018 2:10 AM [facility] GLUCOSE 89 74 - 99 mg/dL 08/21/2018 2:10 AM [facility] TOTAL PROTEIN 7.7 6.7 - 8.6 g/dL 08/21/2018 2:10 AM [facility] ALBUMIN 4.2 3.5 - 5.2 g/dL 08/21/2018 2:10 AM [facility] BILIRUBIN TOTAL 1.3(H) 0.3 - 1.2 mg/dL 08/21/2018 2:10 AM [facility] ALKALINE PHOSPHATASE 63 40 - 129 U/L 08/21/2018 2:10 AM [facility] AST 32 <41 U/L 08/21/2018 2:10 AM [facility] ALT 40 <42 U/L 08/21/2018 2:10 AM [facility] GFR >60 >=60 mL/min/1.7 3 sq meter 08/21/2018 2:10 AM [facility] Comment: eGFR has not been validated for use in the elderly (> 70 years of age), women, patients with serious co-morbid conditions, or persons with extremes of body size or muscle mass and should also be interpreted with caution in patients with acute kidney failure, dialysis dependent patients, patients reporting exceptional dietary intake (e.g. vegetarian diet, high protein diets, creatine supplementation), and patients with severe liver disease. Based on National Kidney Disease Education Program If patient is , please refer to the GFR result. GFR, >60 >=60 mL/min/1.7 3 sq meter 08/21/2018 2:10 AM [facility] [employer] LABORATORY [facility] ANION GAP 11 8 - 16 mmol/L 08/21/2018 2:10 AM [facility] [employer] [facility] Blood Venipuncture / Unknown 08/21/2018 1:40 AM COLLAR BASTER 08/21/2018 1:43 AM [facility] [employer] [facility] SERVICES - [facility] - 08/21/2018 2:10 AM COLLAR BASTER Samples containing indocyanine green cause interferences on Total and/or Direct Bilirubin and must not be measured. Jose Soto MD CHEMISTRY ORDERABLES [facility] [employer] [facility] CLIA# [id number] [address] [facility] [place] [address] * (ABNORMAL) CBC WITH DIFFERENTIAL (08/21/2018 1:40 AM COLLAR BASTER) WBC 6.5 4.0 - 9.8 K/uL 08/21/2018 1:48 AM [facility] [employer] LABORATORY [facility] RBC 5.95(H) 4.50 - 5.40 M/uL 08/21/2018 1:48 AM [facility] [employer] [facility] HEMOGLOBIN 13.2(L) 13.6 - 16.5 g/dL 08/21/2018 1:48 AM [facility] [employer] [facility] HEMATOCRIT 43.2 40.0 - 48.0 % 08/21/2018 1:48 AM [facility] [employer] [facility] MCV 72.6(L) 82.0 - 99.0 fL 08/21/2018 1:48 AM [facility] [employer] [facility] MCH 22.2(L) 27.2 - 32.6 pg 08/21/2018 1:48 AM [facility] [employer] [facility] MCHC 30.6(L) 31.5 - 35.5 g/dL 08/21/2018 1:48 AM [facility]ER [facility] RDW 17.2(H) 11.5 - 14.5 % 08/21/2018 1:48 AM [facility] [employer] [facility] RDW-STDEV 42.2 37.1 - 48.7 fL 08/21/2018 1:48 AM [facility] [employer] [facility] PLATELETS 169 140 - 350 K/uL 08/21/2018 1:48 AM [facility] [employer] [facility] MPV 9.1(L) 9.3 - 12.4 fL 08/21/2018 1:48 AM [facility] NEUTROPHILS 71 % 08/21/2018 1:48 AM CO[facility]ASTER [employer] [facility] LYMPHOCYTES 21 % 08/21/2018 1:48 AM [facility] MONOCYTES 7 % 08/21/2018 1:48 AM [facility] EOSINOPHILS 1 % 08/21/2018 1:48 AM [facility] BASOPHILS 1 % 08/21/2018 1:48 AM [facility] IMMATURE GRANULOCYTES 0 % 08/21/2018 1:48 AM [facility] NEUTROPHIL ABSOLUTE 4.63 1.90 - 7.00 K/uL 08/21/2018 1:48 AM [facility] LYMPHOCYTE ABSOLUTE 1.37 0.70 - 4.50 K/uL 08/21/2018 1:48 AM [facility] MONOCYTE ABSOLUTE 0.44 0.10 - 1.30 K/uL 08/21/2018 1:48 AM [facility] EOSINOPHIL ABSOLUTE 0.05 0.00 - 0.70 K/uL 08/21/2018 1:48 AM [facility] BASOPHILS ABSOLUTE 0.04 0.00 - 0.20 K/uL 08/21/2018 1:48 AM [facility] IMMATURE GRANULOCYTES ABSOLUTE 0.01 0.00 - 0.03 K/uL 08/21/2018 1:48 AM [facility] Blood Venipuncture / Unknown 08/21/2018 1:40 AM COLLAR BASTER 08/21/2018 1:43 AM COLLAR BASTER Jose Soto MD HEMATOLOGY ORDERABLE S Performing Organization Address City/[facility] Co de Phone Number [facility]# [id number] [address] [place] [address] documented in this encounter Visit Diagnoses Diagnosis Anxiety state- Primary Anxiety state, unspecified documented in this encounter
--- OUTSIDE RECORDS SUMMARY | 2024-09-10 04:19 | XMS_ITS | Encounter Summary ---
[facility] Organization [facility] Address [address] [place] [address] Care Team Providers Care Experimental Worker Name Role Phone Unavailable Primary Care Provider Unavailabl e Reason for Visit * Reason Comments Medication Refill needs a refill on al prazolam 2 mg tab. took last tablet tonight. c/o left ear pain for several weeks. - Ketty RAMESH Encounter Details Date Type Department Care Team (Late st Contact Info) Description 11/02/2019 6:12 AM CLINICAL DATA ANALYST - 11/02/2019 6:42 AM [facility] Emergency [facility] Emergency Department [address] [place] [address] Bartolo Amezcua MD [address], [place] [phone] Encounter for medication refill (Primary Dx) Discharge [...] Sign Reading Time Taken Comments Blood Pressure 163/90 11/02/2019 3:02 AM CLINICAL DATA ANALYST Pulse 69 11/02/2019 3:02 AM CLINICAL DATA ANALYST Temperature 36.3 ??C (97.3 ??F) 11/02/2019 3:02 AM CS T Respiratory Rate 20 11/02/2019 3:02 AM CLINICAL DATA ANALYST Oxygen Saturation 97% 11/02/2019 3:02 AM CLINICAL DATA ANALYST Inhaled Oxygen Concentration - - Weight 122.9 kg (271 lb) 11/02/2019 3:02 AM CLINICAL DATA ANALYST Height - - Body Mass Index 35.75 01/14/2019 3:00 PM CDT documented in this encounter Discharge Instructions * Discharge Instructions* Bartolo Amezcua MD - 11/02/2019 6:43 AM CLINICAL DATA ANALYST Unfortunately we are unable to refill your long-term Xanax prescription. I have included several referrals for alternative psychiatrist especially if you are no longer seen the psychiatrist who prescribed it for you last. Please keep in mind that you have several other physicians including your urologist and your primary medical doctor who could all write for these prescriptions as this is not kala ething that the ER can do or should do. ICAL DATA ANALYST * Attachments The following attachments cannot be sent through Care Everywhere. * Medication Refill (Thai) documented in this encounter Medications at Time of Discharge Medication Sig Dispensed Refills Start Date End Date omeprazole (PriLOSEC) 40 mg Capsule, Delayed Release(E.C.) Take 40 mg by mouth daily. ibuprofen (MOTRIN) 600 mg tablet Take 1 Tablet (600 mg) by mouth every 6 hours as needed for Pain, Mild. 20 Tablet None 10/30/2016 fluticasone (FLONASE) 50 mcg/spray [place], Suspension Administer 2 Sprays in each nostril [...] as of this encounter ED Notes * Terra Esquivel, RN - 11/02/2019 6:34 AM CST Pt arrived to ed with co needing a xanax refill. Pt states that he was dropped from his psychiatrist and has been needing a refill and cannot find another doc to refill. Pt states he was also droppedfrom his insurance and worried he cannot afford a refill. ICAL DATA ANALYST * Bartolo Amezcua MD - 11/02/2019 3:00 AM CST HISTORY OF PRESENT ILLNESS Carlos Mcgee, a 49 y.o. male presents to the ED with a Chief Complaint of Medication Refill Subjective Documented Triage Chief Complaint: Medication refill 6:34 AM: Carlos Mcgee is a 49 y.o. male with a history of depression, and panic attacks, who presents to the Emergency Department with complaints of needing a refill on his Xanax prescription written by Dr. Carpio. He also complains of restless legs, increased fatigue, and diaphoresis. Physician(s): No primary care provider on file. History provided by: The patient Arrived by: Private vehicle Medication Refill Severity: Moderate Onset quality: Sudden Timing: Constant Chronicity: Chronic Associated symptoms: fatigue Associated symptoms: no abdominal pain, no chest pain, no congestion, no nausea, no rash, no rhinorrhea and no wheezing REVIEW OF SYSTEMS Review of Systems Constitutional: Positive for diaphoresis and fatigue. Negative for activity change, chills and unexpected weight change. HENT: Negative. Negative for congestion, rhinorrhea, sinus pressure, sneezing and voice change. Eyes: Negative. Negative for pain, discharge, itching and visual disturbance. Respiratory: Negative. Negative for chest tightness and wheezing. Cardiovascular: Negative. Negative for chest pain. Gastrointestinal: Negative. Negative for abdominal pain, blood in stool and nausea. Endocrine: Negative for cold intolerance and heat intolerance. Genitourinary: Negative. Musculoskeletal: Negative. Negative for neck pain. (+) restless legs Skin: Negative. Negative for pallor and rash. Neurological: Negative. Negative for syncope. Psychiatric/Behavioral: Negative. Negative for behavioral problems. The patient is not nervous/anxious. All other [...] HOME MEDICATIONS Discharge Medication List as of 11/02/2019 6:43 AM CONTINUE these medications which have NOT [...] Disp-1 Package, R-None fluticasone (FLONASE) 50 mcg/spray [place], Suspension Administer 2 Sprays in each nostril [...] Objective PHYSICAL EXAM INITIAL VS BP: (!) 163/90 (11/02/19301), Heart Rate: 69 bpm (11/02/19301), Resp: 20 (11/02/19301), Pulse: 69 (11/02/19301), Temp: 97.3 ??F (36.3 ??C) (11/02/19301), Temp src: Oral (11/02/19301), SpO2: 97 % (11/02/19301), Height: (not recorded), Weight: 122.9 kg (271 lb) (11/02/19301), BMI (Calculated): (not recorded) No LMP for male patient. Physical Exam Vitals signs and nursing note reviewed. Constitutional: Appearance: Normal appearance. HENT: Head: Normocephalic and atraumatic. Nose: Nose normal. No congestion. Eyes: Conjunctiva/sclera: Conjunctivae normal. Pupils: Pupils are equal, round, and reactive to light. Neck: Musculoskeletal: Neck supple. Thyroid: No thyromegaly. Cardiovascular: Rate and Rhythm: Normal rate and regular rhythm. Heart sounds: Normal heart sounds. No murmur. Pulmonary: Effort: Pulmonary effort is normal. No respiratory distress. Breath sounds: Normal breath sounds. No stridor. No wheezing. Chest: Chest wall: No tenderness. Abdominal: General: Bowel sounds are normal. There is no distension. Palpations: Abdomen is soft. There is no mass. Tenderness: There is no abdominal tenderness. There is no guarding. Musculoskeletal: Normal range of motion. Lymphadenopathy: Cervical: No cervical adenopathy. Skin: General: Skin is warm and dry. Findings: No rash. Neurological: General: No focal deficit present. Mental Status: He is alert and oriented to person, place, and time. Cranial Nerves: No cranial nerve deficit. Deep Tendon Reflexes: Reflexes are normal and symmetric. Psychiatric: Behavior: Behavior normal. Thought Content: Thought content normal. Judgment: Judgment normal. DIAGNOSTICS LAB: No data to display RADIOLOGY: No orders to display No orders to display EKG: PROCEDURES Procedures MEDICAL DECISION MAKING AND PLAN OF CARE -- On initial evaluation, discussed inability to fill a Xanax prescription. Patient understands andagrees with the plan. [facility] Summary Statement: Summary: 49 year old male is here for a Xanax refill. He is well known from prior visits here for Xanax refills. Patient told unable to refill as he has multiple physicians, Urology, Psychiatry, and PCP which he is unable to contact. He has a urology appointment today, but questions about various urology issues, all going back to his desire to get more Xanax. Patient continues to be passive-aggressive and insulting during his interview especially when told that unable to refill his medications. DDx: medication refill PLAN: Patient tena be provided with referrals and discharged I have reviewed previous: notes I have reviewed nursing notes related to past medical history, social history, and review of systems and agree, unless otherwise noted. Discharge Medication List as of 11/02/2019 6:43 AM CONTINUE these medications which have NOT [...] Disp-1 Package, R-None fluticasone (FLONASE) 50 mcg/spray [place], Suspension Administer 2 Sprays in each nostril [...] discuss with provider. LAST VS BP: (!) 163/90 (11/02/19301), Heart Rate: 69 bpm (11/02/19301), Resp: 20 (11/02/19301), Pulse: 69 (11/02/19301), Temp: 97.3 ??F (36.3 ??C) (11/02/19301), Temp src: Oral (11/02/19301), SpO2: 97 % (11/02/19301) CLINICAL IMPRESSION Final diagnoses: [Z76.0] Encounter for medication refill (Primary) DISPOSITION, EDUCATION AND MEDICATION RECONCILIATION Medications reconciled. See after visit summary for patient education on discharged patients. ED Disposition ED Disposition Condition User Date/Time Comment Discharge Stable Bartolo Amezcua MD [facility] Nov 02, 2019 6:40 AM ATTESTATION STATEMENTS This note has been prepared by Kasandra Corcoran acting as a scribe for Dr. Bartolo Aemzcua on 11/02/2019 at 6:47 AM. The scribe's documentation has been prepared under my direction and personally reviewed by me, [facility],in its entirety on 11/02/19 at 6:47 AM. I confirm that the note above accurately reflects all work,treatment, procedures, and medical decision making performed by me. ICAL DATA ANALYST documented in this encounter Plan of Treatment Not on file documented as of this encounter Visit Diagnoses Diagnosis Encounter for medication refill- Primary Issue of repeat prescriptions documented in this encounter
--- OUTSIDE RECORDS SUMMARY | 2024-09-10 04:19 | XMS_ITS | Encounter Summary ---
Author Organization [facility] Address 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 nauseated. lightheaded, extreme fatigue. last two days has been diaphoretic really bad. has been getting weird brown on his body he states. he says he saw a new psychiatrist and they have been messing with his medications Encounter Details Date Type Department Care Team (Late st Contact Info) Description 01/09/2019 8:03 PM CDT - 01/09/2019 11:59 PM CDT Emergency [facility] Emergency Department [address] [place] [address] Lyubov Swanson MD [address] [place] [address] Anxiety state (Primary Dx) Discharge [...] Sign Reading Time Taken Comments Blood Pressure 187/82 01/09/2019 11:55 PM CDT Pulse 75 01/09/2019 11:55 PM CDT Temperature 36.9 ??C (98.4 ??F) 01/09/2019 7:49 PM CD T Respiratory Rate 16 01/09/2019 11:55 PM CDT Oxygen Saturation 97% 01/09/2019 11:55 PM CDT Inhaled Oxygen Concentration - - Weight 116.1 kg (256 lb) 01/09/2019 6:01 PM CDT Height 185.4 cm (6' 1 ) 01/09/2019 6:01 PM CDT Body Mass Index 33.78 01/09/2019 6:01 PM CDT documented in this encounter Discharge Instructions * Discharge Instructions* Lyubov Swanson MD - 01/09/2019 10:58 PM CDT Carlos Kelly (1970) Carlos was seen in [facility] Emergency Department on 01/09/19 by a Master's Level Clinician. Per consulting the physician, the following recommendations have been made. Please follow up with the following: Follow up with Dr. Estuardo Garcia, Psychiatry within 1 week; call on Mondays for appointments that week. [address] , [place] [address] . Same Day Access (SDA) is a walk-in clinic serving people with mental health needs. Each walk-in will be seen by a mental health clinician. Where can I access Same Day Access services? Two [facility] Behavior[facility] ([facility]) locations offer SDA services: [facility] (serving parts of [facility] and [facility]) [address], [address]th [place] [address] Hours: Wednesday - Wednesday 8:30 a.m. - 3 p.m. [facility] (serving [facility] and [facility]) [address] [place] [address] Hours: Wednesday, Wednesday, , Wednesday 9 a.m. - 3 p.m. Wednesday 9 a.m. - 6 p.m. GENERAL INFORMATION: [phone] Psychiatrist: call below office next day and be seen by psychiatrist within 1 week or as soon as first available appointment. mDialog. Address: [address] [place] [address] [address], [place] [address]. Therapist: from the above office; ask for therapist to deal with your psychosocial concerns. Intensive Outpatient Program/Start Date: n/a Substance Abuse Program: see below list; call for appointment and start at earliest available date. Inpatient [facility] [phone] Inpatient Medical Detox, Residential, Outpatient Services, Anti-Craving Medications, Aftercare (Adult and Adolescent Programs) Locations: [facility], [facility], [facility] Insurance(s): Most major insurances, Medicaid, State-Funding [facility] [phone] Inpatient Medical Detox, Residential, Outpatient Services, Anti-Craving Medications, Aftercare (Adults 18+) Main Location: [facility] Locations: [facility], [facility], [place], [place] Insurance(s): Most major insurances (no , Medicare, or Medicaid) [facility] [phone] Residential, Outpatient Services, Anti-Craving Medications, Aftercare (Adult and Adolescent Programs) Locations: [place] ([place], [place], [place], [place], [place], [place], [place], [place]) Insurance(s): Most major insurances, [place] Medicaid, [place] State-Funding (no [place] Medicaid or Medicare) [facility] [phone] Inpatient Medical Detox, Short/Long-Term Residential, Outpatient Services, Transitional Housing (Adults 18+) Location: [facility] Insurance(s): Jesus Alberto, [place], [place], [facility], [facility], [facility] [phone] Inpatient Medical Detox, Short-Term Hospitalization, Typically 3 Day, 4 Night detox (Adults 18+) Locations: [place] ([place], [place], [place]); [place] ([place]) Insurance(s): Most major insurances, Medicare and Medicaid [facility] [phone] Residential Services, Outpatient Services, Early Intervention (Adolescents; Adult Programs) Locations: [place] and [facility] Insurance(s): Most major insurances, Medicare and Medicaid [facility] [phone] Inpatient Medical Detox, Residential, Outpatient Services, Aftercare (Adult and Adolescent Programs) Locations: Jose Carlos [place], [place], [place], [facility], [facility], [place], [place], [place] (more online) Insurance(s): Most major insurances, Medicare and Medicaid [facility] (Women Only) [phone] Residential, Outpatient Services, Research Electrician Services Location: [facility] Insurance(s): State-Funding, Medicare and Medicaid [facility] (Men Only) [phone] Inpatient Medical Detox, Short-Term Residential, Outpatient Services, Transitional Housing Location: [facility] Insurance(s): State-Funding [facility] Stabilization Service [phone] Inpatient Medical Detox, Short-Term Hospitalization, Typically 3 Day, 4 Night detox (Adults 18+) Locations: Rebecca Pan Insurance(s): Most major insurances, Medicare and Medicaid [facility] ([facility]) * [phone] Inpatient Medical Detox, Residential, Outpatient Services, Anti-Craving Medications, Community Supports (Adult and Adolescents) Locations: [facility], [place], [place], [place], [facility], [place], [place], [place], [place] (more online) Insurance(s): Most major insurances, Medicare and Medicaid, Sliding Scale, State-Funding [facility] [phone] Inpatient Medical Detox, Residential, Outpatient Services, Anti-Craving Medications, Aftercare, Family Program (Ages 16+) Inpatient Location: [place] Outpatient Location: Vishnu [place] Insurance(s): Most major insurances (No Medicare or Medicaid) Citizen Of [place] [facility] Treatment Shopping Inspector [place]: [phone] Inpatient Medical Detox, Residential, Partial Hospitalization, Intensive Outpatient Programming, Locations: [place], [place]; [place], [place]; [facility]; [place], [place] Insurance(s): Most major insurances Outpatient [facility] [phone] Outpatient Detox, Aftercare, Anti-Craving Medications (Adult and Adolescent Programs) Location: [place] Insurance(s): Most major insurances and Managed Medicaids (No Medicare) [facility] ([facility]) [phone] Residential, Outpatient Services, Anti-Craving Medications, Transitional Housing, Aftercare (Fwkgbv50+) Locations: [facility] Insurance(s): Most major insurances (no Medicare, Medicaid, or HealthCare [place]) Giuseppe [phone] Outpatient Services, Day Treatment Program, Counseling Services (Adult and Adolescent Programs) Locations: [place] Insurance(s): Most major insurances, including Medicare and Medicaid [facility] on Alcoholism and Drug Abuse [facility] [phone] Substance Abuse assessments (9:30am - 3pm Wednesday - Wednesday; Appointment Only), Referrals, General Substance Abuse Help/Information Line (9am - 5pm Wednesday - Wednesday); Adult and Adolescent Assessments Location: [place] Insurance(s): None, Adult Appointments: $50, Adolescent (19 and under): Free [facility] * [phone] Outpatient Services, Day Treatment Program, Short/Long-Term Residential (Adults Only) Location: [facility] Insurance(s): Medicaid Only [place] [facility], [facility] [phone] Outpatient Services, Individual/Family/Group Counseling (Adults Only) Location: [place] Insurance(s): Self pay, Private Insurance Já Entendi [phone] Intensive Outpatient Programming (Adults Only) Location: [place] Insurance(s): Self pay, Private Insurance [facility] [phone] Assessments, Individual Counseling, Intensive Outpatient Program, After-Care, Support Groups (Ages 13-25 Only) Location: [place] Insurance(s): Self pay, Private Insurance ??Necesita Ayuda? (Maldivian NCADA Help Line) [phone] Sustancia general Abuso Ayuda / L??enrique de Informaci??n para los clientes de habla espa??kb (parte de la NCADA-STL; theo descripci??n anterior) [facility]one Treatment Centers [facility] [phone] [address] [address] [facility] [phone] [address] [facility] Alexandru. [facility] [address] [facility] Opiate Addiction [phone] [address] [facility] [address] [facility] [phone] [address] [facility] [address] AA/NA/CA: Call to find a meeting near you Other: n/a Should Carlos have any concerns for safety, Carlos is agreeable to yuli a trusted family member or friend, current providers, [facility] at the number listed below, any of the crisis linesbelow, [phone] or go to your nearest emergency department. Referrals Suicide Prevention/Crisis Hotlines [facility]) - Behavioral Health Intake Department: [phone] [facility] Behavioral Health Intake Department is professionally staffed and offers free, confidential evaluations for anyone needing assistance with psychiatric and behavioral issues. Evaluations are available 24 hours a day, 7 days a week. [facility]: 426-828-QORP (1958) [facility] is one of the nation's oldest suicide prevention and crisis hotlines. LCS operates 24 hours a day Behavioral Health Response: 423.217.4200 or 494-866-1281 Behavioral Health Response (BHR) is a professionally staffed crisis response service. R provides expert behavioral health, crisis response, and outreach services /[facility] Suicide Hotline: 8-788-433-TALK (9881) Press 1 National Suicide Prevention Hotline: 5-122-520-TALK (2638) 05/04 hotline available to anyone in suicidal crisis or emotional distress. Call's will be routed tothe nearest crisis center to you National Hope-Line Network: 5-677-KVUCZOP (492-3112) 05/04 hotline that connects people who are depressed or suicidal, or those who are concerned about someone they love, automatically to a [facility] or [facility] certified crisis center. Crisis Text Line: Just send a text message to 198459 Live, trained crisis counselors available 05/04 via text message; You'll receive an automated text asking you what your crisis is and within minutes , a live trained crisis counselor will answer your text. They will help you out of a moment of crisis and work with you to create a plan to continue tofeel better. Youth Hotlines Kids Under Twenty-One Crisis Help-line: 6-393-519-BETSY (9653) The [place] Crisis Help-line is a confidential telephone hotline available to any youth who may be in need of assistance, referral information, or crisis service. The [facility] help-line is one of a handful of hotline staffed exclusively by youth volunteers. LGBT Youth Suicide Hotline: 6-445 -U NATHANIEL (173-4493) Kid Save: Parenting Crisis Help Crisis Nursery Help Line [facility]: [phone] Crisis Nursery Help Line [facility]: [phone] Youth in Need: [phone] Youth Emergency Services: 433.293.1995 Sexual Violence Hotlines Sexual Assault Response Team: [phone] [facility] Sexual Assault Center: [phone] Domestic Violence Hotlines ALIVE (Alternative to Living in Violent Environments): 679.476.2633 Legal Advocate for Abused Women: 385.472.2956 Women's Safe House: 137.401.4865 * Attachments The following attachments cannot be sent through Care Everywhere. * Anxiety Disorder (Korean) documented in this encounter Medications at Time of Discharge Medication Sig Dispensed Refills Start Date End Date omeprazole (PriLOSEC) 40 mg Capsule, Delayed Release(E.C.) Take 40 mg by mouth daily. ibuprofen (MOTRIN) 600 mg tablet Take 1 Tablet (600 mg) by mouth every 6 hours as needed for Pain, Mild. 20 Tablet None 10/30/2016 fluticasone (FLONASE) 50 mcg/spray [place], Suspension Administer 2 Sprays in each nostril [...] of Breath. documented as of this encounter Progress Notes * Shan Oliver, AMANDA - 01/10/2019 12:05 AM CDT Intake Evaluation Start Time: 2239 Carlos Kelly is a 48 y.o. male who presents for Behavioral Health intake. Location of eval: ED (01/09/192352). Patient presents:: With blankbook forwarder (01/09/192352) and Information obtained from:: Other;Past medical record (01/09/192352) Transportation Mode: Other(friend) (01/09/192352) Name of Psychiatry Instructor(s) : refused (01/10/193) Collateral information obtained from Psychiatry Instructor: No; Explain:refused Collateral information obtained from:: Friend (01/09/192352): Yes; Explain: see above Release of Info Signed: CONCEPCION signed: No (01/09/192352) Living Arrangements: (homeless) (01/10/193) Referral Source: Self (01/09/192352) Legal Custody/Guardianship/Durable Power of Ice Cream Man: Legal Custody: Self (01/09/192352) CC/RFV: homeless, tired one week, very very anxious two days, sweating (01/09/192358) Narrative Summary/History of Present Illness: Precipitating event(s) within past 24-72 hours leading to presentation to the hospital: Carlos Kelly is a 48 y.o. male with a hx of depression and anxiety brought to the ED by friend on pt's own accord with c/o homeless, increasing anxiety in past two days, more tired for a week, and diaphoretic. Pt also reported issues with his stomach. States depression is due to homelessness that has been chronic over two years. Denies acute depression or acute anxiety. States has been anxious and has been using benzos past 20 yrs. Blames doctors current and from the past for giving him benzos. Pt doesnot report a reasonable motivation for behavior change; though did have a conversation about behavior change and resources available. Pt states benzos are the only thing that helps him and calms him down. States he does not like to be nervous like this. States his doctor cut down his xanax and changed his SSRI to Celexa. Pt states pt did not fill the celexa. He also states the pharmacies in the area are not honoring the scripts given by his psychiatrist or her . Pt reported he has seen so me other psychiatrists in the past. Pt denied having alcohol or drug problem. Pt did report drinking occasionally within the last year. Pt reported one of his former psychiatrists approached him for a relationship and stopped seeing her. Pt appeared grandiose and outsourcing all his problem and cause. Pt reported trigger as (see below paragraph.) Denies history of suicide attempt. Denies history of self-injurious behavior. Pt denies HI (homicidal ideations), denies psychosis.Substance use disorder -denied. Pt reported he is safe and not suicidal. Pt was unsure what he wanted; yet wanted checked out for diaphoresis and stomach issues. Denied acute psychiatric problem. Pt showed papers [facility] where he was getting 2mg Alprazolam x 120 tablets within the past year. Major Change/Loss/Stressor: other(chronic homeless; does not like the psychiatrist; has not filled meds; not taking prescribed meds) (01/10/19); divorce, father in 2012 / Stressors (If Female) Has pt given /been within the last 24 months? N/A Has pt been struggling with mood disorder/anxiey related /childbirth/baby? N/A If yes please list symptoms: N/A Risk Assessment Suicidal Ideation (Most Severe in Past Month) 1. Do you currently wish you were or wished you could go to sleep and not wake up? : No (01/10/192) 2. Have you actually had any thoughts of killing yourself? : No (01/10/192) 3. Have you been thinking about how you might kill yourself? : No (01/10/192) 4. Have you had these thoughts and had some intention of acting on them? : No (01/10/192) 5. Have you started to work out or worked out the details of how to kill yourself? Do you intend tocarry out this plan? : No (01/10/192) 6. Have you ever done anything, started to do anything, or prepared to do anything to end your life?: No (01/10/192) Suicidal and Self-Injurious Behavior Actual suicide attempt (Past 3 Months): No (01/10/192) Actual suicide attempt (Lifetime): No (01/10/192) Interrupted attempt (Past 3 Months): No (01/10/192) Interrupted attempt (Lifetime): No (01/10/192) Aborted or Self-Interrupted attempt (Past 3 Months): No (01/10/192) Aborted or Self-Interrupted attempt (Lifetime): No (01/10/192) Other preparatory acts to kill self (Past 3 Months): No (01/10/192) Other preparatory acts to kill self (Lifetime): No (01/10/192) Self-injurious behavior without suicidal intent (Past 3 Months): No (01/10/192) Self-injurious behavior without suicidal intent (Lifetime): No (01/10/192) Activating Events (Recent) Recent loss(es) or other significant negative event(s) (legal, financial, relationship, etc.): No (01/10/192) Pending incarceration or homelessness: Yes (01/10/192) Current or pending isolation or feeling alone: No (01/10/192) Treatment History Previous psychiatric diagnoses and treatments: Yes (01/10/192) Hopeless or dissatisfied with treatment : Yes (01/10/192) Non-compliant with treatment : Yes (01/10/192) Not receiving treatment: No (01/10/192) Clinical Status (Recent) Hopelessness: No (01/10/192) Major depressive episode: No (01/10/192) Mixed affective episode: Yes (01/10/192) Command hallucinations to hurt self: No (01/10/192) Highly impulsive behavior: No (01/10/192) Substance abuse or dependence: Yes (01/10/192) Agitation or severe anxiety: Yes (01/10/192) Perceived burden on family or others: No (01/10/192) Chronic physical pain or other acute medical problem : No (01/10/192) Aggressive behavior towards others: No (01/10/192) Method for suicide available: No (01/10/192) Refuses or feels unable to agree to safety plan: No (01/10/192) Family history of suicide (lifetime): No (01/10/192) Protective Factors (Recent) Identifies reasons for living: Yes (01/10/192) Responsibility to family or others; living with family: Yes (01/10/192) Supportive social network or family: No (01/10/192) Fear of or dying due to pain and suffering: Yes (01/10/192) Belief that suicide is immoral; high spirituality: Yes (01/10/192) Engaged in work or school: Yes (01/10/192) Access to Firearms/Weapons: no (01/10/193) If yes, plan to limit access: n/a Homicidal Ideation: No Impairment in Functioning: mild Support Sytem: Support System:friends Family/Support System Psychiatry Instructor(s) : refused (01/10/193) Current Providers/(Phone # if available): Psychiatrist: Dr. Valencia. Therapist: none Other services: none Current diagnosis: See narrative at start Medical Care Provider: No primary care provider on file. Phone: None. Past Treatment History: Previous psychiatric diagnoses and treatments: Yes (01/10/192) Has patient been discharged from a hospital within the last 30 days:no All Current Home Medications (per parent/caregiver report): Celexa, xanax Family History of Mental Illness: Alcohol use d/o in his father. 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 Explain: see above Substance Abuse Screening: Chemical Abuse Screen Patient reports chemical abuse/use: No (01/10/193) Opioid Project-[facility] Is this patient in need of referral to the Opiod Project: No. Mental Status Evaluation: Appearance: Within normal limits (01/10/19) Behavior: Passive;Resistance to cares (01/10/19) Observed Emotional State: no concerns;anxious (01/10/19) Speech: Normal rate/tone (01/10/19) Thought Processes: Alert (01/10/19) Social Judgement: Difficulty in problem solving (01/10/19) Sensorium/Orientation:person, place, time/date and situation Cognition:average for level of education Depression: Symptoms: Appetite change;Sleep disturbance (01/10/191) Anxiety: Symptoms: Generalized (01/10/191) Devorah: Symptoms: No problems reported or observed (01/10/191) Eating Disorders: Hallucination Type: No problems reported or observed (01/10/191) Quality of Sleep:poor with nightime awakenings Sleep Patterns: interrupted (01/10/191) Hours of Sleep: see above Changes in Appetite:decreased Eating Patterns: decreased appetite; reported issues with his stomach (01/10/191) Special Needs and Services: Environmental Concerns: No concerns (01/10/193) Plan/Disposition as directed by physician: Recommended Level of Care: Referral (01/10/194) Consulting Physician: Consulting Physician: Sky (01/10/194) On-Call Psychiatrist: Admitting Physician: aeronautical engineering officer Annie (01/10/194) Hand-Off Report Given: not applicable Provisional Diagnoses: ?? Primary Diagnosis: RAKESH. ?? Additional Diagnosis(es): n/a ?? Acute Medical: See ED Physician's notes from today. ?? Psychosocial: other psychosocial or environmental problems. Legal Status: Voluntary (01/10/194) Suicide Hotline Resources Provided: Yes. documented in this encounter ED Notes * Junaid Donato RN - 01/09/2019 11:55 PM CDT Patient states is unhappy with being d/c. Patient informed of lab results and Dr. Swanson comfortablewith d/c plan. Patient informed of resources being d/c home with. Dr. Swanson notified. Don Charge RNnotified. Vital sign obtained and MD notified. * Junaid Donato RN - 01/09/2019 10:00 PM CDT Patient/family has been informed about benefits and any potential clinically significant side effects or other concerns regarding the administration of the drug they have just been given. * Junaid Donaot RN - 01/09/2019 8:49 PM CDT MD at bedside. * Junaid Donato RN - 01/09/2019 8:32 PM CDT Patient to ED Rm 59 with c/o anxiety. Patient states for about a week now he has been feeling really anxious, shaky not feeling right. nauseated. lightheaded, extreme fatigue. Patient states last two days he has been diaphoretic really bad. Patient states has been getting weird brown on his body he states, patient has bruise like brown to RLQ and nose. Patient states he has had extreme nausea. Patient states he says he saw a new psychiatrist and they have been messing with his medications. Patient states he feels like he can't trust his psychiatrist and states that several pharmacies haverefused to fill his prescriptions. Patient states he has had bad experiences with [facility] . Patient states medications were changed 3 weeks ago and has been having more depression but denies SI/HI. Patient calm and cooperative. * Lyubov Swanson MD - 01/09/2019 5:55 PM CDT HISTORY OF PRESENT ILLNESS Carlos Kelly, a 48 y.o. male presents to the ED with a Chief Complaint of Anxiety Subjective Documented Triage Chief Complaint: Anxiety 8:49 PM: Carlos Kelly is a 48 y.o. male with a history of depression and anxiety who presents with worsening depression and anxiety for awhile. Pt reports that he has chronic neck/back pain as well as numerous family/financial stressors that cause his worsening depression and anxiety. He states that he is currently homeless after he spent all of his money on his father's illness. Also states that he was given less of his Xanax and SSRI was changed. He presents here for further evaluation. No SI or HI. Severity: moderate Duration: chronic Progression: worsening Quality: anxiety, depression Radiation: generalized Associated symptoms: see above Primary Care Doctor: No primary care provider on file. History provided by: The patient Arrived by: Private vehicle REVIEW OF SYSTEMS Review of Systems Constitutional: Negative for chills and fever. HENT: Negative for congestion, ear pain, rhinorrhea and sore throat. Respiratory: Negative for cough and shortness of breath. Cardiovascular: Negative for chest pain. Gastrointestinal: Negative for abdominal pain, diarrhea, nausea and vomiting. Genitourinary: Negative for dysuria. Musculoskeletal: Positive for back pain (chronic) and neck pain (chronic). Negative for arthralgias. Skin: Negative for rash. Neurological: Negative for weakness and numbness. Psychiatric/Behavioral: Positive for dysphoric mood. The patient is nervous/anxious. PAST MEDICAL HISTORY [...] 23 years ago. His smoking use included cigarettes. [...] HOME MEDICATIONS Discharge Medication List as of 01/09/2019 10:58 PM CONTINUE these medications which have NOT CHANGED [...] Disp-1 Package, R-None fluticasone (FLONASE) 50 mcg/spray [place], Suspension Administer 2 Sprays in each nostril [...] Objective PHYSICAL EXAM INITIAL VS BP: (!) 162/79 (01/09/191800), Heart Rate: 70 bpm (01/09/191800), Resp: 18 (01/09/191800), Pulse: 67 (01/09/191948), Temp: 97.4 ??F (36.3 ??C) (01/09/191800), Temp src: Oral (01/09/191800), SpO2: 97 % (01/09/191800), Height: 6' 1 (185.4 cm) (01/09/191800), Weight: 116.1 kg (256 lb) (01/09/191800), BMI (Calculated): 33.78 (01/09/191800) No LMP for male patient. Physical Exam Constitutional: He is oriented to person, place, and time. No distress. Heavy set HENT: Head: Normocephalic and atraumatic. Cardiovascular: Normal rate, regular rhythm, normal heart sounds and intact distal pulses. Pulmonary/Chest: Effort normal and breath sounds normal. Abdominal: Soft. There is no tenderness. Musculoskeletal: Normal range of motion. He exhibits no tenderness. Neurological: He is alert and oriented to person, place, and time. He exhibits normal muscle tone. Skin: Skin is warm and dry. Psychiatric: His mood appears anxious. Difficult to redirect Nursing note and vitals reviewed. DIAGNOSTICS LAB: CBC WITH DIFFERENTIAL - Abnormal Result Value WBC 5.8 RBC 6.30 (*) HEMOGLOBIN 14.5 HEMATOCRIT 46.4 MCV 73.7 (*) MCH 23.0 (*) MCHC 31.3 (*) RDW 18.6 (*) RDW-STDEV 44.7 PLATELETS 200 MPV 9.5 NEUTROPHILS 67 LYMPHOCYTES 25 MONOCYTES 6 EOSINOPHILS 2 BASOPHILS 1 IMMATURE GRANULOCYTES 0 NEUTROPHIL ABSOLUTE 3.89 LYMPHOCYTE ABSOLUTE 1.48 MONOCYTE ABSOLUTE 0.33 EOSINOPHIL ABSOLUTE 0.10 BASOPHILS ABSOLUTE 0.03 IMMATURE GRANULOCYTES ABSOLUTE 0.01 BASIC METABOLIC PANEL - Abnormal SODIUM 139 POTASSIUM 3.4 (*) CHLORIDE 99 CO2 27 CALCIUM 9.5 BUN 12 CREATININE 0.96 GLUCOSE 152 (*) GFR >60 GFR, >60 ANION GAP 13 DRUG SCREEN, URINE - Abnormal AMPHETAMINE QUAL, URINE Negative BARBITURATE QUAL, URINE Negative BENZODIAZEPINE QUAL, URINE Presumptive Positive (*) COCAINE QUAL URINE Negative OPIATE QUAL, URINE Negative CANNABINOIDS QUAL, URINE Negative PCP QUAL, URINE Negative OXYCODONE QUAL, URINE Negative METHADONE QUAL, URINE Negative CREATININE, URINE 205.8 URINALYSIS WITH REFLEX MICROSCOPIC - Abnormal COLOR UA Yellow CLARITY UA Clear SPECIFIC GRAVITY UA 1.018 PH UA 6.0 LEUKOCYTE ESTERASE UA Negative NITRITE UA Negative PROTEIN UA Negative GLUCOSE UA Negative KETONES UA Negative UROBILINOGEN UA 2.0 (*) BILIRUBIN UA Negative BLOOD UA Negative POC GLUCOSE - Abnormal POC GLUCOSE 156 (*) LANGUAGE ARTS TEACHER NAME KRISTEN DE LA PAZ TSH - Normal TSH 3.44 ETHANOL LEVEL ETHANOL <10.00 ETHANOL % <0.01 RADIOLOGY: No orders to display EKG: PROCEDURES Procedures MEDICAL DECISION MAKING AND PLAN OF CARE ED Course as of Jan 10 958 Mon Jan 09, 2019 9787 Spoke with intake services who has seen the patient and recommends discharge home. Will be given resources. Plan discharge home. [WF] ED Course User Index [WF] Yoan Stevenson Scribe [facility] Summary Statement: Patient is a 48 y.o. male who was seen by counseling. Based on the patient's history, physical examination, and indicated laboratory and/or imaging studies, no acute medical conditions are apparent at this time to preclude a psychiatric disposition I have reviewed previous: notes and labs I have reviewed current: labs I have reviewed nursing notes related to past medical history, social history, and review of systems and agree, unless otherwise noted. Consults: psychiatry Medications Administered During the ED Stay from 01/09/2019 1755 to 01/10/2019 0932 Date/Time Order Dose Route Action 01/09/20192157 LORazepam (ATIVAN) tablet 1 mg 1 mg Oral Given Discharge Medication List as of 01/09/2019 10:58 PM CONTINUE these medications which have NOT CHANGED [...] Disp-1 Package, R-None fluticasone (FLONASE) 50 mcg/spray [place], Suspension Administer 2 Sprays in each nostril [...] discuss with provider. LAST VS BP: (!) 187/82 (01/09/192354), Heart Rate: 70 bpm (01/09/191800), Resp: 16 (01/09/192354), Pulse: 75 (01/09/192354), Temp: 98.4 ??F (36.9 ??C) (01/09/191948), Temp src: Oral (01/09/191948), SpO2: 97 % (01/09/192354) CLINICAL IMPRESSION Final diagnoses: [F41.1] Anxiety state (Primary) DISPOSITION, EDUCATION AND MEDICATION RECONCILIATION Medications reconciled. See after visit summary for patient education on discharged patients. ED Disposition ED Disposition Condition User Date/Time Comment Discharge Stable Lyubov Swanson MD Mon Jan 09, 2019 10:57 PM ATTESTATION STATEMENTS This note has been prepared by yoan stevenson acting as a scribe for Dr. Lyubov Swanson on 01/09/2019 at 10:58 PM. The scribe's documentation has been prepared under my direction and personally reviewed by me, Lyubov Swanson MD, in its entirety on 01/10/19 at 9:58 AM. I confirm that the note above accurately reflects all work, treatment, procedures, and medical decision making performed by me. documented in this encounter Plan of Treatment Not on file documented as of this encounter Procedures Procedure Name Priority Date/Time Associated Diagnosis Comments CBC WITH DIFFERENTIAL Stat 01/09/2019 9:30 PM CDT DRUG SCREEN, URINE Stat 01/09/2019 9: 30 PM CDT URINALYSIS W/REFLEX MICROSCOPIC Stat 01/09/2019 9:30 PM CDT TSH Stat 01/09/2019 9:30 PM CDT ETHANOL LEVEL Stat 01/09/2019 9:30 PM CDT BASIC METABOLIC PANEL Stat 01/09/2019 9:30 PM CDT EKG 12-LEAD Stat 01/09/2019 6:31 PM CDT POC GLUCOSE Stat 01/09/2019 6:00 PM CDT documented in this encounter Results * (ABNORMAL) URINALYSIS WITH REFLEX MICROSCOPIC (01/09/2019 9:30 PM CDT) COLOR UA Yellow Pale to Dark Yellow 01/09/2019 10:08 PM CDT [facility] [employer] [facility] CLARITY UA Clear Clear 01/09/2019 10:08 PM CDT [facility] - [facility] SPECIFIC GRAVITY UA 1.018 1.003 - 1.035 01/09/2019 10:08 PM CDT [facility] - . [facility] PH UA 6.0 5.0 - 8.0 01/09/2019 10:08 PM CDT [facility] - . [facility] LEUKOCYTE ESTERASE UA Negative Negative 01/09/2019 10:08 PM CDT [facility] - . [facility] NITRITE UA Negative Negative 01/09/2019 10:08 PM CDT [facility] - . [facility] PROTEIN UA Negative Negative 01/09/2019 10:08 PM CDT [facility] - . [facility] GLUCOSE UA Negative Negative 01/09/2019 10:08 PM CDT [facility] - . [facility] KETONES UA Negative Negative 01/09/2019 10:08 PM T [facility] - [facility] UROBILINOGEN UA 2.0(A) <2.0 mg/dL 9 10:08 PM T [facility] - [facility] BILIRUBIN UA Negative Negative 01/09/2019 10:08 PM T [facility] - [facility] BLOOD UA Negative Negative 01/09/2019 10:08 PM T [facility] - [facility] Urine URINE SPECIMEN OBTAINED BY CLEAN CATCH PROCEDURE / Unknown Collection / Unknown 01/09/2019 9:30 PM CDT 01/09/2019 9:44 PM CDT Lyubov Swanson MD URINE ORDERABLES [facility] [employer] SERVICES [facility]# [id number] [address] [facility] [place] [place] [id number] * (ABNORMAL) DRUG SCREEN, URINE (01/09/2019 9:30 PM CDT) AMPHETAMINE QUAL, URINE Negative Negative 01/09/2019 10:29 PM CDT [facility] BARBITURATE QUAL, URINE Negative Negative 01/09/2019 10:29 PM CDT [facility] - [facility] BENZODIAZEPINE QUAL, URINE Presumptive Positive(A) Negative 01/09/2019 10:29 PM CDT [facility] SERVICES - [facility] COCAINE QUAL URINE Negative Negative 01/09/2019 10:29 PM T [facility] OPIATE QUAL, URINE Negative Negative 01/09/2019 10:29 PM [facility] CANNABINOIDS QUAL, URINE Negative Negative 01/09/2019 10:29 PM T [facility] PCP QUAL, URINE Negative Negative 9 10:29 PM [facility] OXYCODONE QUAL, URINE Negative Negative 01/09/2019 10:29 PM T [facility] METHADONE QUAL, URINE Negative Negative 01/09/2019 10:29 PM T [facility] CREATININE, URINE 205.8 40.0 - 278.0 mg/dL 01/09/2019 10:29 PM [facility] Comment: Reference Range varies with fluid intake and diet. Urine URINE SPECIMEN OBTAINED BY CLEAN CATCH PROCEDURE / Unknown Collection / Unknown 01/09/2019 9:30 PM CDT 01/09/2019 9:44 PM CDT Narrative [facility] - 01/09/2019 10:29 PM CDT DOA INTERP: Urine sample was not handled as a legal specimen and was received without a chain of custody. ??The result should be used only for medical purposes. False positive and erroneous results can occur due to cross-reacting substances and other factors. Depending on the clinical context, confirmation of all presumptive positive results by a more specific alternate method is recommended. ??A negative result indicates the analyte, if present, is below the screening threshold. Drug ? Ref. Range ?Screening Threshold Amphetamines ?Negative ? 1000 ng/mL Barbiturates ?Negative ?200 ng/mL Benzodiazepines ? Negative ?100 ng/mL Cannabinoids ?Negative ? 50 ng/mL Cocaine Metabolites ?? Negative ?150 ng/mL Methadone ? Negative ?300 ng/mL Opiates ? Negative ?300 ng/mL Oxycodone ? Negative ?100 ng/mL Phencyclidine ? Negative ? 25 ng/mL To inquire about any potential cross-reactivity of a specific drug, please contact the Chemistry Lab at . Lyubov Swanson MD URINE ORDERABLES Performing Organization Address [facility] Co de Phone Number [facility]# [id number] [address] [place] [id number] * TSH (01/09/2019 9:30 PM CDT) [facility] TSH 3.44 0.27 - 4.20 uIU/mL 01/09/2019 10:40 PM CDT [facility] Blood Venipuncture / Unknown 01/09/2019 9:30 PM CDT 01/09/2019 9:39 PM CDT Lyubov Swanson MD CHEMISTRY ORDERABLES Performing Organization Address [facility] de Phone Number [facility]# [id number] [address] [place] [address] * ETHANOL LEVEL (01/09/2019 9:30 PM CDT) [facility] ETHANOL <10.00 <10.00 mg/dL 01/09/2019 10:28 PM CDT [facility] ETHANOL % <0.01 %w/v 01/09/2019 10:28 PM T [facility] LABORATORY SERVICES [facility]. [facility] Blood Venipuncture / Unknown 01/09/2019 9:30 PM CDT 01/09/2019 9:39 PM CDT Lyubov Swanson MD CHEMISTRY ORDERABLES [facility] [id number] [address] [place] [address] [place] [id number] * (ABNORMAL) BASIC METABOLIC PANEL (01/09/2019 9:30 PM CDT) SODIUM 139 136 - 145 mmol/L 01/09/2019 10:37 PM [facility] LABORATORY SERVICES [facility] POTASSIUM 3.4(L) 3.5 - 5.0 mmol/L 01/09/2019 10:37 PM [facility] [employer] SERVICES - . [facility] CHLORIDE 99 98 - 107 mmol/L 01/09/2019 10:37 PM [facility] LABORATORY SERVICES - . [facility] CO2 27 22 - 29 mmol/L 01/09/2019 10:37 PM [facility] - . [place] CALCIUM 9.5 8.6 - 10.2 mg/dL 01/09/2019 10:37 PM [facility] - . [facility] BUN 12 6 - 20 mg/dL 01/09/2019 10:37 PM [facility] SERVICES - . [facility] CREATININE 0.96 0.67 - 1.17 mg/dL 01/09/2019 10:37 PM [facility] [employer] SERVICES - . [facility] GLUCOSE 152(H) 74 - 99 mg/dL 01/09/2019 10:37 PM [facility] [employer] LABORATORY SERVICES - . [place] GFR >60 >=60 mL/min/1.7 3 sq meter 01/09/2019 10:37 PM [facility] [employer] LABORATORY SERVICES - . [facility] Comment: eGFR has not been validated for [...] GFR, >60 >=60 mL/min/1.7 3 sq meter 01/09/2019 10:37 PM CDT [facility]ORATORY SERVICES [facility] ANION GAP 13 8 - 16 mmol/L 01/09/2019 10:37 PM CDT [facility] - [facility] Blood Venipuncture / Unknown 01/09/2019 9:30 PM CDT 01/09/2019 9:39 PM CDT Lyubov Swanson MD CHEMISTRY ORDERABLES [facility] [employer] SERVICES [facility] CLIA# [id number] [address] [facility] [place] [address] * (ABNORMAL) CBC WITH DIFFERENTIAL (01/09/2019 9:30 PM CDT) WBC 5.8 4.0 - 9.8 K/uL 01/09/2019 9:59 PM CDT [facility] RBC 6.30(H) 4.50 - 5.40 M/uL 01/09/2019 9:59 PM CDT [facility] SERVICES [facility] HEMOGLOBIN 14.5 13.6 - 16.5 g/dL 01/09/2019 9:59 PM CDT [facility] HEMATOCRIT 46.4 40.0 - 48.0 % 01/09/2019 9:59 PM CDT [facility] MCV 73.7(L) 82.0 - 99.0 fL 01/09/2019 9:59 PM CDT [facility] MCH 23.0(L) 27.2 - 32.6 pg 01/09/2019 9:59 PM CDT [facility] MCHC 31.3(L) 31.5 - 35.5 g/dL 01/09/2019 9:59 PM CDT [facility] - [facility] RDW 18.6(H) 11.5 - 14.5 % 01/09/2019 9:59 PM CDT [facility] RDW-STDEV 44.7 37.1 - 48.7 fL 01/09/2019 9:59 PM CDT [facility] PLATELETS 200 140 - 350 K/uL 01/09/2019 9:59 PM CDT [facility] MPV 9.5 9.3 - 12.4 fL 01/09/2019 9:59 PM CDT [facility] NEUTROPHILS 67 % 01/09/2019 9:59 PM CDT [facility] LYMPHOCYTES 25 % 01/09/2019 9:59 PM CDT [facility] MONOCYTES 6 % 01/09/2019 9:59 PM CDT [facility] EOSINOPHILS 2 % 01/09/2019 9:59 PM CDT [employer] [facility]ATORY SERVICES - [facility] BASOPHILS 1 % 01/09/2019 9:59 PM CDT [facility] - [facility] IMMATURE GRANULOCYTES 0 % 01/09/2019 9:59 PM CDT [facility] [place] NEUTROPHIL ABSOLUTE 3.89 1.90 - 7.00 K/uL 01/09/2019 9:59 PM CDT [facility] LYMPHOCYTE ABSOLUTE 1.48 0.70 - 4.50 K/uL 01/09/2019 9:59 PM CDT [facility] MONOCYTE ABSOLUTE 0.33 0.10 - 1.30 K/uL 01/09/2019 9:59 PM CDT [facility] EOSINOPHIL ABSOLUTE 0.10 0.00 - 0.70 K/uL 01/09/2019 9:59 PM CDT [facility] BASOPHILS ABSOLUTE 0.03 0.00 - 0.20 K/uL 01/09/2019 9:59 PM CDT [facility] [facility] - [facility] IMMATURE GRANULOCYTES ABSOLUTE 0.01 0.00 - 0.03 K/uL 01/09/2019 9:59 PM CDT [employer] [facility] - [facility] Blood Venipuncture / Unknown 01/09/2019 9:30 PM CDT 01/09/2019 9:39 PM CDT Lyubov Swanson MD HEMATOLOGY ORDERABLE S [facility]# [id number] [address] [place] [address] * EKG 12-LEAD (01/09/2019 6:31 PM CDT) 01/09/2019 6:31 PM CDT Narrative INTERFACE SYSTEM - 01/10/2019 8:37 AM CDT ? Stationary ECG Study ? [facility] ? Test Date: ?01/09/2019 6:31 PM Pat Name: ? VINCENT CORPUS ? Department: ?? 36 ?Room: ? Gender: ? M ?Boiler Tester: ?? : ?1970 ? Requested By: ?? Order Number: [id number] ?Elsa RUSSELL: ?? Vignesh Gurrola ? Measurements Intervals ?[place] ? Rate: ? 67 ? P: ?44 HI: ? 167 ?QRS: ?62 QRSD: ? 93 ? T: ?3 QT: ? 382 ? QTc: ?404 ? Interpretive Statements ? Sinus rhythm mild NSSTT Electronically Signed On 01-10-2019 8:37:47 CDT by Vignesh Gurrola Procedure Note Vignesh Gurrola MD - 02/07/2021 Stationary ECG Study [facility] Test Date: 01/09/2019 6:31 PM Pat Name: CARLOS KELLY Department: 36 Room: Gender: M Boiler Tester: : 1970 Requested By: Order Number: [id number] Reading MD: Vignesh Gurrola Measurements Intervals [place] Rate: 67 P: 44 HI: 167 QRS: 62 QRSD: 93 T: 3 QT: 382 QTc: 404 Interpretive Statements Sinus rhythm mild NSSTT Electronically Signed On 01-10-2019 8:37:47 CDT by Vignesh Gurrola Lyubov Swanson MD ECG ORDERABLES Performing Organization Address City/State/[facility] Co de Phone Number INTERFACE SYSTEM Refer to clinic/hospital department * (ABNORMAL) POC GLUCOSE (01/09/2019 6:00 PM CDT) GLUCOSE POC 156(H) 74 - 99 mg/dL 01/09/2019 6:00 PM CDT [facility] LABORATORY [facility] LANGUAGE ARTS TEACHER NAME POC KRISTEN DE LA PAZ 01/09/2019 6:00 PM CDT [facility] LABORATORY [facility] Whole blood specimen (specimen) 01/09/2019 6:00 PM CDT 01/09/2019 6:12 PM CDT Interface Provider Poct POINT OF CARE TE STING [facility] [employer] [facility] CLIA# [id number] [address] [place] [address] documented in this encounter Visit Diagnoses Diagnosis Anxiety state- Primary Anxiety state, unspecified documented in this encounter Administered Medications Inactive Administered Medications - up to 3 most recent administrations Medication Order MAR Action Action Date Dose Rate Site LORazepam (ATIVAN) tablet 1 mg 1 mg, Oral, ONE TIME ONLY, 1 dose, On Wed01/09/19 at 2200, Routine Given 01/09/2019 9:58 PM CDT 1 mg documented in this encounter Active and Recently Administered Medications Times are shown in CDT. Scheduled Medication Order 01/07/2019 01/08/2019 01/09/2019 LORazepam (ATIVAN) tablet 1 mg (COMPLETED) 1 mg, Oral, ONE TIME ONLY, 1 dose, On Wed01/09/19 at 2200, Routine 2157 (Given - Provid er: Junaid Donato RN) documented in this encounter
--- OUTSIDE RECORDS SUMMARY | 2024-09-10 04:19 | XMS_ITS | Encounter Summary ---
Author Organization [employer] Address [address] [place] [address] Care Team Providers Care Crabbing Machine Operator Name Role Phone Unavailable Primary Care Provider Unavailabl e Reason for Visit * Reason Onset Date Comments Information 10/31/2018 Encounter Details Date Type Department Care Team (Late st Contact Info) Description 10/31/2018 Nurse Triage [facility] Nurse application defense manager [address] [place] [address] Ana Maria Skaggs RN Social History Tobacco Use Types Packs/Day [...] encounter Miscellaneous Notes * Telephone Encounter - Ana Maria Douglas RN - 10/31/2018 11:20 AM CST Reason for Disposition ??? [1] Caller requesting NON-URGENT health information AND [2] PCP's office is the best resource Protocols used: INFORMATION ONLY CALL-A-AH CLEANING MANAGER * Telephone Encounter - Ana Maria Douglas RN - 10/31/2018 11:18 AM CST Patient visited a friend with possible c-diff for about 10 days ago. Blood seen on friend's toilet.Other friends that come over do not use friends facility. Friend was being seen by home health providers. Patient has been very tired for a few days. Questioning if he could catch c-diff. Discussed c-diff is a bacterial infection that is passed from hands to other surfaces to the next person or from person to person and must be ingested. Patient is currently taking Ciprofloxacin for a diverticulitis episode being treated through his current GI physician. Patient repeatedly asking if Cipro is the right treatment for c-diff if he should have this infection. Discussed with patient that as a triaging RN we are unable to diagnose and recommend prescription treatments for conditions. Encouraged patient to discuss treatment concerns with his GI physician / this physician's clinical staff. Patient with concerns that his GI phsyician will be unavailable to discuss his concerns. Encouraged patient to establish with a PCP in his area to assist him to coordinate his specialists and explore his concerns voiced about his symptom of intermittent fatigue mentioned at various times throughout the call. Patient thanked triaging RN for the time taken and ended the call. CLEANING MANAGER * Telephone Encounter - Ana Maria Douglas RN - 10/31/2018 11:16 AM CST Regarding: c-diff questions ----- Message from Ana Maria Douglas RN sent at 10/31/2018 11:16 AM SEED CLEANING MANAGER ----- Patient's address on file: [address] [place] [id number] Patient's current location: Same as above CLEANING MANAGER documented in this encounter Plan of Treatment Not on file documented as of this encounter Visit Diagnoses Not on filedocumented in this encounter
--- OUTSIDE RECORDS SUMMARY | 2024-09-10 04:19 | XMS_ITS | Encounter Summary ---
Author Organization [employer] Address [address] [place] [address] Care Team Providers Care Field Sales Engineer Name Role Phone Unavailable Primary Care Provider Unavailabl e Reason for Visit * Reason Onset Date Comments Headache 12/06/2019 Encounter Details Date Type Department Care Team (Late st Contact Info) Description 12/06/2019 [facility] managed security sales consultant [address] [place] [address] Iwona Bustillos RN Social History Tobacco Use Types Packs/Day [...] AM CDT documented as of this encounter Miscellaneous Notes * Telephone Encounter - Leticia Flynn RN - 12/06/2019 5:36 AM CDT Patient calling back to ask if he would get in trouble for going to store to get medicine, wore mask and gloves. Advised to continue follow CDC guidelines and states understanding. * Telephone Encounter - Iwona Bustillos RN - 12/06/2019 2:16 AM CDT Reason for Disposition ? ? [1] MODERATE headache (e.g., interferes with normal activities) AND [2] present > 24 hours AND [3] unexplained (Exceptions: analgesics not tried, typical migraine, or headache part of viral illness) Protocols used: [id number]-SD MATTHEW RN triaged pt and gave see in 24 disposition and pt refuses. Pt states he doesn't need to be seen. * Telephone Encounter - Iwona Bustillos RN - 12/06/2019 2:02 AM CDT Regarding: was tested yesterday by health department, severe headache BP 146/88 ----- Message from Iwona Bustillos RN sent at 12/06/2019 2:02 AM CDT ----- Patient's [address] on file: [address] [place] [address] Patient's current location: Same as above documented in this encounter Plan of Treatment Not on file documented as of this encounter Visit Diagnoses Not on filedocumented in this encounter
--- OUTSIDE RECORDS SUMMARY | 2024-09-10 04:19 | XMS_ITS | Encounter Summary ---
Author Organization [employer] Address [address] [place] [address] Care Team Providers Care Curer Foam Rubber Name Role Phone Unavailable Primary Care Provider Unavailabl e Reason for Visit * Reason Onset Date Comments Anal Irritation 09/18/2018 Encounter Details Date Type Department Care Team (Late st Contact Info) Description 09/18/2018 [facility] final operations technician [address] [place] [address] Lyn Hicks, RN Social History Tobacco Use Types Packs/Day [...] encounter Miscellaneous Notes * Telephone Encounter - Lyn Hicks RN - 09/18/2018 4:15 PM CST Reason for Disposition ??? Rash of rectal area (e.g., open sore, painful tiny water blisters, unexplained bumps) Protocols used: RECTAL [id number] Caller unwilling to complete triage, became upset when advised to be seen within 24 hours, just wants to know what he can do over the counter. Suggested benadryl for the itching, he said he already tried and it didn't help. Caller ended the call. ICATIONS SUPPORT SPECIALIST * Telephone Encounter - Lyn Hicks RN - 09/18/2018 4:07 PM CST Regarding: Rash ----- Message from Karri Madden sent at 09/18/2018 3:58 PM APPLICATIONS SUPPORT SPECIALIST ----- Patient's [address] on file: [address] [place] [address] Patient's current location: Same as above ICATIONS SUPPORT SPECIALIST documented in this encounter Plan of Treatment Not on file documented as of this encounter Visit Diagnoses Not on filedocumented in this encounter
--- OUTSIDE RECORDS SUMMARY | 2024-09-10 04:19 | XMS_ITS | Encounter Summary ---
Author Organization [employer] Address [address] [place] [address] Care Team Providers Care Customer Service Associate Name Role Phone Unavailable Primary Care Provider Unavailabl e Reason for Visit * Reason Onset Date Comments Abdominal Pain 09/23/2020 Encounter Details Date Type Department Care Team (Late st Contact Info) Description 09/23/2020 [facility] regional branch manager [address] [place] [address] Elisha Lozada RN Social History Tobacco Use Types Packs/Day [...] have Coronavirus / COVID-19? No / Unsure 09/23/2020 9:40 PM EGGS INSPECTOR documented as of this encounter Miscellaneous Notes * Telephone Encounter - Elisha Lozada RN - 09/23/2020 9:46 PM CST Pt advised to be seen in ED/UC within 3-4 hours. Pt declines, states he prefers to wait. Reason for Disposition ? ? [1] MILD-MODERATE pain AND [2] constant AND [3] present > 2 hours Protocols used: ABDOMINAL PAIN - MALE-A-AH INSPECTOR documented in this encounter Plan of Treatment Not on file documented as of this encounter Visit Diagnoses Not on filedocumented in this encounter
--- OUTSIDE RECORDS SUMMARY | 2024-09-10 04:19 | XMS_ITS | Encounter Summary ---
Author Organization [employer] Address [address] [place] [address] Care Team Providers Care Parboiler Name Role Phone Unavailable Primary Care Provider Unavailabl e Reason for Visit * Reason Onset Date Comments Mass 09/21/2020 Encounter Details Date Type Department Care Team (Late st Contact Info) Description 09/21/2020 Nurse Triage [facility] Nurse front window cashier [address] [place] [address] Iwona Bowen, RN Social History [...] COVID-19? No / Unsure 09/21/2020 6:04 AM TRAFFIC SIGN ERECTION SUPERVISOR documented as of this encounter Miscellaneous Notes * Telephone Encounter - Iwona Bowen RN - 09/21/2020 8:05 AM CST Reason for Disposition ??? Documentation only? Protocols used: DENZEL NOC P ANSWERING SERVICE FIC SIGN ERECTION SUPERVISOR * Telephone Encounter - Iwona Bowen RN - 09/21/2020 7:49 AM CST Patient states he was waiting for a return call but has not heard from anyone. I was starting to assess him when he stated Oh there they are now, I'll let you go. FIC SIGN ERECTION SUPERVISOR documented in this encounter Plan of Treatment Not on file documented as of this encounter Visit Diagnoses Not on filedocumented in this encounter
--- OUTSIDE RECORDS SUMMARY | 2024-09-10 04:19 | XMS_ITS | Clinical Summary ---
Author Organization [facility] Address [address] [place] [address] Care Team Providers Care Employment Advisor Name Role Phone Unavailable Primary Care Provider Unavailabl e Allergies Active Allergy Reactions Criticality Noted Date Comments Carvedilol Hives High 12/05/2015 Clindamycin Anaphylaxis High 09/22/2015 Clonidine Anxiety Low 12/05/2015 Famotidine Anxiety Low 01/31/2016 Hydralazine Confusion Low 12/05/2015 Iodinated Contrast Media Hives High 06/26/2013 Levofloxacin Hives High 06/10/2009 Lidocaine Unknown 12/29/2009 Lisinopril Anaphylaxis High 09/22/2015 Morphine Hallucination Low 06/26/2013 Nebivolol Swelling Low 12/05/2015 Oxycodone-Acetaminophen Dizziness Low 11/08/2014 Paroxetine Hcl Anxiety Low 01/07/2015 Sulfa (Sulfonamide Antibiotics) Rash Low 12/29/2009 Sulfamethoxazole-Trimethop rim Hives High 06/10/2009 Uroseptic Ds Other (See Comments) 06/11/2016 Panic attack Medications Medication Sig Dispensed Refills Start Date End Date Status albuterol 90 mcg/Actuation HFA inhaler Take 2 Puffs by inhalation every 6 hours as needed for Shortness of Breath. Active atenolol (TENORMIN) 100 mg tablet Take 0.5 Tablet (50 mg) by mouth 2 times daily. 10 Tablet 0 12/03/2015 Active Additional Information Patient taking differently: 100 mgOralDAILY, Reported on 12/05/2015 meclizine (ANTIVERT) 25 mg tabletIndications:Di abetes mellitus type 2, controlled, without complications,Sleep apnea, unspecified sleep apnea type,Benign hypertension Take 25 mg by mouth 2 times daily as needed for Dizziness. Active promethazine (PHENERGAN) 25 mg tablet Take 1 Tablet (25 mg) by mouth every 6 hours as needed for Nausea. 30 Tablet None 07/17/2016 Active fluticasone (FLONASE) 50 mcg/spray Mikana, Suspension Administer 2 Sprays in each nostril daily. 16 Gram 09/12/2016 Active ibuprofen (MOTRIN) 600 mg tablet Take 1 Tablet (600 mg) by mouth every 6 hours as needed for Pain, Mild. 20 Tablet None 10/30/2016 Active omeprazole (PriLOSEC) 40 mg Capsule, Delayed Release(E.C.) Take 40 mg by mouth daily. Active ALPRAZolam (XANAX) 2 mg tablet Take 2 mg by mouth 3 times daily. Active Active Problems Problem Noted Date Diagnosed Date Nausea 08/16/2017 Tooth infection 08/16/2017 Pleuritic chest pain 07/02/2015 Depression with anxiety 07/02/2015 Microcytic anemia 07/02/2015 SOB (shortness of breath) 07/02/2015 Anxiety state 01/08/2015 Neck pain 01/08/2015 Chest pain 01/08/2015 Cervical stenosis of spinal canal 08/28/2014 Costochondral chest pain 08/28/2014 Paresthesias with subjective weakness 08/28/2014 PTSD (post-traumatic stress disorder) 08/28/2014 GERD (gastroesophageal reflux disease) 4 Diabetes mellitus type 2, controlled, without co mplications 08/28/2014 Blurry vision, bilateral 08/28/2014 Depression 04/09/2014 Diverticulitis of colon 09/11/2013 Overview (07/02/2015): Overview: Non-specific colitis 02/02/2013 Acute abdominal pain 02/02/2013 Sedative, hypnotic or anxiolytic abuse, continuo us 06/18/2009 Esophageal reflux 06/13/2009 Family History Medical History Relation Name Comments Other Father blood clots Stroke Father Diabetes Maternal Grandfather Diabetes Maternal Grandmother Relation Name Status Comments Father Maternal Grandfather Maternal Grandmother Mother Alive Social History Tobacco Use Types [...] Reading Time Taken Comments Blood Pressure 152/94 11/18/2019 7:07 AM DIRECTOR SUPPLY Pulse 66 11/18/2019 7:07 AM DIRECTOR SUPPLY Temperature 36.7 ??C (98.1 ??F) 11/18/2019 5:34 AM CS T Respiratory Rate 18 11/18/2019 7:07 AM DIRECTOR SUPPLY Oxygen Saturation 98% 11/18/2019 7:07 AM DIRECTOR SUPPLY Inhaled Oxygen Concentration - - Weight 120.2 kg (265 lb) 11/18/2019 5:34 AM DIRECTOR SUPPLY Height 188 cm (6' 2 ) 11/18/2019 5:34 AM DIRECTOR SUPPLY Body Mass Index 34.02 11/18/2019 5:34 AM DIRECTOR SUPPLY Plan of Treatment Health Maintenance Due Date Last Done Comments PNEUMOCOCCAL VACCINE 0-64 YE ARS (1 of 2 - PCV) 02/09/1978 DIABETES ANNUAL RETINAL EXAM 02/09/1990 DIABETES MICROALBUMIN ANNUAL SCREEN 02/09/1990 LDL CHOLESTEROL ANNUAL 02/09/1990 HEPATITIS B VACCINES (1 of 3 - 19+ 3-dose series) 02/09/1991 DTAP/TDAP/TD VACCINES (1 - Tdap) 09/14/2011 09/13/19 12 COLORECTAL SCREENING 02/09/2017 Colorectal Cancer Screening 02/09/2017 FIT-DNA Q 3 years 02/09/2017 FIT/FOBT Q 1 year 02/09/2017 Flex Sig/CT Colonography Q 5 years 02/09/2017 DIABETES HBA1C Q 6 MONTHS 01/30/2020 08/01/2019, DIABETES ANNUAL FOOT EXAM 08/01/2020 08/01/2019 ZOSTER VACCINE (1 of 2) 02/09/2022 INFLUENZA VACCINE (#1) 2024 Procedures Procedure Name Priority Date/Time Associated Diagnosis Comments HEMOGLOBIN A1C Add on 07/02/2015 2:10 AM CDT from Last 3 Months or Most Recently Relevant to Health Maintenance Results * (ABNORMAL) HEMOGLOBIN A1C (07/02/2015 2:10 AM CDT) HEMOGLOBIN A1C 6.5(H) 4.1 - 6.1 % 07/02/2015 5:25 PM CDT [facility] EST. AVG GLUCOSE, A1C 140 mg/dL 07/02/2015 5:25 PM CDT [facility] Blood Venipuncture - Floor Collect / Unknown 07/02/2015 2:10 AM CDT 07/02/2015 2:11 AM CDT Narrative [facility] - 07/02/2015 5:25 PM CDT Based on the ADAG study equation. Iwona [place] APN CHEMISTRY ORDERABLES [facility] CLIA# [id number] [address] [place] [address] from Last 3 Months or Most Recently Relevant to Health Maintenance Advance Directives For more information, please contact: [phone] * Full Code (Latest Code Status on File) Date Activated Date Inactivated Comments 07/02/2015 8:36 AM 07/02/2015 8:02 PM * Full Code Date Activated Date Inactivated Comments 08/28/2014 2:37 PM 08/28/2014 5:13 PM
--- OUTSIDE RECORDS SUMMARY | 2024-09-10 04:19 | XMS_ITS | Encounter Summary ---
Author Organization [employer] Address [address] [place] [address] Care Team Providers Care Fleet Dispatch Manager Name Role Phone Unavailable Primary Care Provider Unavailabl e Reason for Visit * Reason Onset Date Comments Blood Sugar Problem 01/10/2020 Encounter Details Date Type Department Care Team (Late st Contact Info) Description 01/10/2020 [facility] building and construction manager [address] [place] [address] Chacha Carr RN Social History Tobacco Use Types Packs/Day [...] Miscellaneous Notes * Telephone Encounter - Chacha Carr RN - 01/10/2020 10:45 PM CDT Reason for Disposition ??? Blood glucose 70-240 mg/dL (3.9 -13.3 mmol/L) Protocols used: DIABETES - HIGH BLOOD SUGAR-A-AH * Telephone Encounter - Chacha Carr RN - 01/10/2020 10:26 PM CDT Regarding: Hx Diabetes BG 180 feels like Neuropathy in legs ----- Message from Elisha Nation sent at 01/10/2020 10:11 PM CDT ----- Patient's [address] on [address]: [address] [place] [address] Patient's current location: [facility] Refuses to give address documented in this encounter Plan of Treatment Not on file documented as of this encounter Visit Diagnoses Not on filedocumented in this encounter
--- OUTSIDE RECORDS SUMMARY | 2024-09-10 04:19 | XMS_ITS | Encounter Summary ---
Author Organization [employer] Address [address] [place] [address] Care Team Providers Care Gang Knife Fish Chopper Name Role Phone Unavailable Primary Care Provider Unavailabl e Reason for Visit * Reason Onset Date Comments Rib Pain 04/19/2020 Encounter Details Date Type Department Care Team (Late st Contact Info) Description 04/19/2020 Nurse Triage [facility] Nurse associate relations specialist [address] [place] [address] Iwona Landaverde, [address] [facility] [address] [place] [address] Social History Tobacco Use Types Packs/Day Years [...] Miscellaneous Notes * Telephone Encounter - Zara Menjivar RN - 04/21/2020 8:32 AM CDT On callback pt states he went to the ED, labs and xrays done and were negative Dx was thought to be possibly asthma, pt was given steroids, he states his pulse ox is 94-96%. Pt to try to get in w/ a office bookkeeper soon. Pt is encouraged to cori back or be seen if Sx change or worsen. Pt verbalizes understanding * Telephone Encounter - Iwona Landaverde RN - 04/19/2020 4:19 AM CDT Reason for Disposition ? ? [1] Chest pain lasts > 5 minutes AND [2] described as crushing, pressure-like, or heavy Patient reports feeling like someone is sitting on his ribs. I advised patient that he needs to call 911 and patient refuses. I advised him that I could not force him but that was my recommendation. I encouraged him to be seen. He has had these symptoms for a while but he does state that the rib/chest pain is worse right now. He states that his breathing is labored. Protocols used: CHEST PAIN-A-AH * Telephone Encounter - Iwona Landaverde RN - 04/19/2020 4:07 AM CDT Regarding: SOB ----- Message from Iwona Landaverde RN sent at 04/19/2020 4:07 AM CDT ----- Patient's [address] on file: [address] [place] [address] Patient's current location: Same as above documented in this encounter Plan of Treatment Not on file documented as of this encounter Visit Diagnoses Not on filedocumented in this encounter
--- OUTSIDE RECORDS SUMMARY | 2024-09-10 04:19 | XMS_ITS | Encounter Summary ---
Author [facility] Address [address] [facility] Attn: Epic Prelude ADT [place] [address] Care Team Providers Care Cascade Operator Name Role Phone Unavailable Primary Care Provider Unavailabl e Encounter Details Date Type Department Care Team (Latest Contact Info) Description 11/15/2019 Travel Social History Tobacco Use Types Packs/Day [...]
--- OUTSIDE RECORDS SUMMARY | 2024-09-10 04:19 | XMS_ITS | Encounter Summary ---
Author Organization [employer] Address [address] [place] [address] Care Team Providers Care Mangle Tender Cloth Name Role Phone Unavailable Primary Care Provider Unavailabl e Reason for Visit * Reason Comments Withdrawal Pt to ED d/t withdra monik from xanax, pt states he usually 2mg daily, pt states last dose was at 1900 yesterday, pt states he ran out of meds, +chills, +L sided CP, +SOB, pt was evaluated in ED on Wednesday, pt also reports L sided numbness/tingling to face and arm, pt appears uncomfortable in triage Encounter Details Date Type Department Care Team (Late st Contact Info) Description 01/14/2019 3:32 PM CDT - 01/14/2019 4:23 PM CDT Emergency [facility] Emergency Department [address] [place] [address] Leslie Ramsey MD [address] [place] [address] H/O medication noncompliance (Primary Dx); Anxiety state Discharge Disposition: Home or Self [...] Sign Reading Time Taken Comments Blood Pressure 149/88 01/14/2019 3:00 PM CDT Pulse - - Temperature 36.9 ??C (98.5 ??F) 01/14/2019 3:00 PM CD T Respiratory Rate 18 01/14/2019 3:00 PM CDT Oxygen Saturation 99% 01/14/2019 3:00 PM CDT Inhaled Oxygen Concentration - - Weight 124.3 kg (274 lb) 01/14/2019 3:00 PM CDT Height 185.4 cm (6' 1 ) 01/14/2019 3:00 PM CDT Body Mass Index 36.15 01/14/2019 3:00 PM CDT documented in this encounter Discharge Instructions * Discharge Instructions* Sallie Barbosa LMSW - 01/14/2019 4:24 PM CDT Please call your psychiatrist to obtain refills of your medications. If you change your mind and would like help managing your symptoms today, please return to the emergency department. Please follow up with [facility] for case management and psychiatric care This is a walk in clinic, you will be seen by an customer quality specialist to complete a screening for services the same day. This is a state funded program- no charge to family and no insurance needed This screening typically takes several hours to complete. Please bring guardian's photo ID, proof of address, guardianship papers from court, insurance card and list of medications. [facility] [address] [place] [address] ([address] inside the [facility] on the 4th floor) Hours of operation: Wednesday- Wednesday 9-3pm [facility] [address] [place], [address] [facility] [address] [facility] [place], [address] [facility] [address] [facility] [place], [address] [facility] [address] [facility] [place], [address] [facility] [address] [place] [address] A, [address] [place], [address] [facility] [address] [place], [place] [address], [address] [facility] Toll Free: [phone] [facility] [address] [place] [address] [place] [address] [place] [address] [place], [place] [address] [facility] [place] [address] [facility] ([place]) [facility]) [facility] ([place]) [facility] * Attachments The following attachments cannot be sent through Care Everywhere. * Anxiety Disorder (Italian) documented in this encounter Medications at Time of Discharge Medication Sig Dispensed Refills Start Date End Date omeprazole (PriLOSEC) 40 mg Capsule, Delayed Release(E.C.) Take 40 mg by mouth daily. ibuprofen (MOTRIN) 600 mg tablet Take 1 Tablet (600 mg) by mouth every 6 hours as needed for Pain, Mild. 20 Tablet None 10/30/2016 fluticasone (FLONASE) 50 mcg/spray Leighton, Suspension Administer 2 Sprays in each nostril [...] as of this encounter ED Notes * Lorene Chan, DOMITILA - 01/14/2019 4:21 PM CDT notified this RN that patient was leaving ED. MD Braulio aware. Patient is not a legal hold and allowed to leave ED. Patient is not agreeable to staying for discharge instructions. Patientdoes not have an IV. Ambulatory with steady gait. * Chyna Marks RN - 01/14/2019 3:40 PM CDT Pt to ED d/t withdraw from Xanax. Pt states he was here Wednesday with the same symptoms but not as bad as today. He was low on his Xanax and has been trying to make his prescription last longer by taking less each day. Pt reports he normally takes 2mg of Xanax 3x's a day for a total of 6mg a day but since Wednesday has been taking 1 1/2 - 2 pills a day. Pt reports he took his last dose of Xanax last night at 1900 and is out of Xanax now. Pt states he woke up around 0100- 0230 feeling like he didn't know where he was and could not get back to sleep. Pt came to ED today with c/o chills, L sided CP, SOB, and lack of appetite. Pt states I am really shaky right now and feel really scared. Pt reportshe has been on Xanax for 21 years. Pt resting on stretcher in NAD. RR even and unlabored. A&Ox4. Pt speaking in full sentences. Sat pt up and pt states I still feel a little SOB but not as bad. Pt on full monitor. Lights dimmed for comfort. * Leslie Ramsey MD - 01/14/2019 2:56 PM CDT HISTORY OF PRESENT ILLNESS Carlos Kelly, a 48 y.o. male presents to the ED with a Chief Complaint of Withdrawal Subjective Documented Triage Chief Complaint: Withdrawal 4:10 PM: Carlos Kelly is a 48 y.o. male with a history of PTSD, Tpye II DM, [facility]. Patient was seen here on 01/09 for anxiety and worsening depression. He was seen by psychiatry at that time. He was also seen on 11/24 for anxiety, out of psychiatric medications and was given prescription for Xanax. It was documented at that time that patient would not get his medications refilled in the ER again and that he needed to follow up with psychiatry. Patient states he has been taking Xanax for > 20 years and his psychiatrist is tapering the medication, started him on Celexa, and tapered off Lexapro. Since changing his medications, he complainsof having shakiness, sleep disturbance, and not eating well. He has last taken his medications yesterday because the higher dose worked better than the taper and states he is now out of his medications and is requesting refill of Xanax. Has not discussed this need for refill with his psychiatrist. Denies SI or HI. Pt has no other complaints at this time. History provided by: The patient Arrived by: Private vehicle REVIEW OF SYSTEMS Review of Systems Constitutional: Positive for appetite change. Negative for chills and fever. HENT: Negative for ear pain, facial swelling and sore throat. Eyes: Negative for photophobia and redness. Respiratory: Negative for shortness of breath, wheezing and stridor. Cardiovascular: Negative for chest pain and palpitations. Gastrointestinal: Negative for abdominal pain, nausea and vomiting. Genitourinary: Negative for dysuria and hematuria. Musculoskeletal: Negative for arthralgias and myalgias. Skin: Negative for rash. Neurological: Positive for tremors (shakiness). Negative for dizziness, weakness and numbness. Psychiatric/Behavioral: Positive for sleep disturbance. Negative for hallucinations and suicidal ideas. PAST MEDICAL HISTORY REVIEWED MEDICAL: Patient has [...] HOME MEDICATIONS Discharge Medication List as of 01/14/2019 4:23 PM CONTINUE these medications which have NOT [...] Disp-1 Package, R-None fluticasone (FLONASE) 50 mcg/spray Leighton, Suspension Administer 2 Sprays in each nostril [...] Objective PHYSICAL EXAM INITIAL VS BP: (!) 149/88 (01/14/19 1500), Heart Rate: 69 bpm (01/14/191499), Resp: 18 (01/14/191499), Pulse: (not recorded), Temp: 98.5 ??F (36.9 ??C) (01/14/191499), Temp src: Oral (01/14/191499), SpO2: 99 % (01/14/191499), Height: 6' 1 (185.4 cm) (01/14/191499), Weight: 124.3 kg (274 lb) (01/14/191499), BMI (Calculated): 36.16 (01/14/191499) No LMP for male patient. Physical Exam Constitutional: He is oriented to person, place, and time. HENT: Head: Normocephalic and atraumatic. Mouth/Throat: Oropharynx is clear and moist. Eyes: Pupils are equal, round, and reactive to light. Conjunctivae are normal. Neck: Normal range of motion. Neck supple. Cardiovascular: Normal rate, regular rhythm and intact distal pulses. No murmur heard. Pulmonary/Chest: Effort normal. No stridor. He has no wheezes. Abdominal: Soft. Bowel sounds are normal. There is no tenderness. There is no rebound and no guarding. Musculoskeletal: Normal range of motion. He exhibits no edema or deformity. Lymphadenopathy: He has no cervical adenopathy. Neurological: He is alert and oriented to person, place, and time. He has normal strength. No cranial nerve deficit or sensory deficit. Skin: Skin is warm and dry. No rash noted. Psychiatric: Judgment and thought content normal. He is agitated. He expresses no homicidal and no suicidal ideation. Nursing note and vitals reviewed. DIAGNOSTICS LAB: No data to display RADIOLOGY: No orders to display EKG: As interpreted by me: sinus rhythm, normal rate 70. No arrhythmia, normal axis, normal intervals, no ST-T wave or Q waves suggestive of ischemia. PROCEDURES Procedures MEDICAL DECISION MAKING AND PLAN OF CARE 4:10 PM: Patient seen and examined by me. Discussed with patient I am unable to refill his Benzodiazepine medications in the ER. I have offered Ativan and other symptomatic treatment, as well as psychiatric evaluation. Patient is declining any Ativan or other symptomatic treatments including fluids, nausea meds, non benzo meds such as clonidine. All he wants is his high dose Xanax. 4:20 PM: Patient has walked out before receiving his discharge paperwork and emergent psychiatric resources. MDM Summary Statement: 48 year old male with history of anxiety presenting requesting refill of his Xanax and switching back to Lexapro. He denies any SI or HI. He is not tachycardic or significantly hypertensive. He was offered assistance with his withdrawal symptom management, emergency psychiatric referrals, psychiatric consultation, as well as psychiatric follow up. However he declines and states he would like his high dose Xanax. I have told him based on prior documentation that we will continue with prior plan and will not be refilling his medications in the ED. Patient states he will leave and return if his symptoms get worse. He left prior to receiving discharge papers that would have included emergencypsychiatric care, but does have psychiatrist with whom he will follow up. I have reviewed previous: notes I have reviewed current: ECG I have reviewed nursing notes related to past medical history, social history, and review of systems and agree, unless otherwise noted. Discharge Medication List as of 01/14/2019 4:23 PM CONTINUE these medications which have NOT [...] Disp-1 Package, R-None fluticasone (FLONASE) 50 mcg/spray Leighton, Suspension Administer 2 Sprays in each nostril [...] discuss with provider. LAST VS BP: (!) 149/88 (01/14/19 1500), Heart Rate: 69 bpm (01/14/19 1500), Resp: 18 (01/14/19 1500), Pulse: (not recorded), Temp: 98.5 ??F (36.9 ??C) (01/14/19 1500), Temp src: Oral (01/14/19 1500), SpO2: 99 % (01/14/191499) CLINICAL IMPRESSION Final diagnoses: [Z91.14] H/O medication noncompliance (Primary) [F41.1] Anxiety state DISPOSITION, EDUCATION AND MEDICATION RECONCILIATION Medications reconciled. See after visit summary for patient education on discharged patients. ED Disposition ED Disposition Condition User Date/Time Comment Discharge Stable Leslie Ramsey MD Sat January 14, 2019 4:16 PM ATTESTATION STATEMENTS This note has been prepared by Tami Nieto acting as a scribe for Dr. Leslie Ramsey on 01/14/2019 at 4:50 PM. The scribe's documentation has been prepared under my direction and personally reviewed by me, Dr. Leslie Ramsey, in its entirety on 01/14/19 at 5:11 PM. I confirm that the note above accurately reflects all work, treatment, procedures, and medical decision making performed by me. documented in this encounter Plan of Treatment Not on file documented as of this encounter Procedures Procedure Name Priority Date/Time Associated Diagnosis Comments EKG 12-LEAD Stat 01/14/2019 3:11 PM CDT documented in this encounter Results * EKG 12-LEAD (01/14/2019 3:11 PM CDT) 01/14/2019 3:11 PM CDT Narrative INTERFACE SYSTEM - 01/15/2019 11:06 AM CDT ? Stationary ECG Study ? [facility] ? Test Date: ?01/14/2019 3:11 PM Pat Name: ? CARLOS KELLY ? Department: ?? 36 ?Room: ? Gender: ? M ?Supportability Engineer: ?? : ?1970 ? Requested By: ?? Order Number: [id number] ?Reading MD: ?? Aneesh Estevez ? Measurements Intervals ?Gobles ? Rate: ? 70 ? P: ?37 NC: ? 153 ?QRS: ?25 QRSD: ? 104 ?T: ?1 QT: ? 394 ? QTc: ?426 ? Interpretive Statements ? Sinus rhythm Probable left atrial enlargement Borderline T abnormalities, inferior leads Electronically Signed On 01-15-2019 11:06:33 CDT by Aneesh Estevez Procedure Note Aneesh Estevez MD - 02/06/2021 Stationary ECG Study [facility] Test Date: 01/14/2019 3:11 PM Pat Name: CARLOS KELLY Department: 36 Room: Gender: M Supportability Engineer: : 1970 Requested By: Order Number: [id number] Reading MD: Aneesh Estevez Measurements Intervals Gobles Rate: 70 P: 37 NC: 153 QRS: 25 QRSD: 104 T: 1 QT: 394 QTc: 426 Interpretive Statements Sinus rhythm Probable left atrial enlargement Borderline T abnormalities, inferior leads Electronically Signed On 01-15-2019 11:06:33 CDT by Aneesh Estevez Leslie Ramsey MD ECG ORDERABLES INTERFACE SYSTEM Refer to clinic/hospital department documented in this encounter Visit Diagnoses Diagnosis H/O medication noncompliance- Primary Personal history of noncompliance with medical treatment, presenting hazards to health Anxiety state Anxiety state, unspecified documented in this encounter
--- OUTSIDE RECORDS SUMMARY | 2024-09-10 04:19 | XMS_ITS | Encounter Summary ---
Author Organization [employer] Address [address] [place] [address] Care Team Providers Care Corporate Planning Manager Name Role Phone Unavailable Primary Care Provider Unavailabl e Reason for Visit * Reason Onset Date Comments Unable To Contact 10/07/2020 Encounter Details Date Type Department Care Team (Late st Contact Info) Description 10/07/2020 [facility] nurse practitioner [address] [place] [address] Ana Maria Skaggs, RN Social History Tobacco Use Types Packs/Day [...] COVID-19? No / Unsure 10/07/2020 2:03 AM ALLOPATHIC DOCTOR documented as of this encounter Miscellaneous Notes * Telephone Encounter - Ana Maria Skaggs RN - 10/07/2020 2:06 AM CST Reason for Disposition ??? Caller has already spoken with another triager and has no further questions. On the phone with another triager. Protocols used: NO CONTACT OR DUPLICATE CONTACT CALL-A-AH PATHIC DOCTOR documented in this encounter Plan of Treatment Not on file documented as of this encounter Visit Diagnoses Not on filedocumented in this encounter
--- OUTSIDE RECORDS SUMMARY | 2024-09-10 04:19 | XMS_ITS | Encounter Summary ---
Author Organization [facility] Address [address] Attn: Epic Prelude ADT [place] [address] Care Team Providers Care Aviation Electronics Technician Name Role Phone Unavailable Primary Care Provider Unavailabl e Encounter Details Date Type Department Care Team (Latest Contact Info) Description 09/23/2020 Travel Social History Tobacco Use Types Packs/Day [...] COVID-19? No / Unsure 09/23/2020 9:40 PM HEEL SLICKER documented as of this encounter Plan of Treatment Not on file documented as of this encounter Visit Diagnoses Not on filedocumented in this encounter
--- OUTSIDE RECORDS SUMMARY | 2024-09-10 04:19 | XMS_ITS | Encounter Summary ---
Author Organization [employer] Address [address] [place] [address] Care Team Providers Care Manager Sterile Processing Name Role Phone Unavailable Primary Care Provider Unavailabl e Reason for Visit * Reason Onset Date Comments Abdominal Pain 08/14/2020 Encounter Details Date Type Department Care Team (Late st Contact Info) Description 08/14/2020 Nurse Triage [facility] Nurse programmer operator numerical control [address] [place] [address] Leticai Flynn, RN [address] [place] [address] Social History Tobacco Use Types Packs/Day Years [...] Telephone Encounter - Leticia Flynn RN - 08/14/2020 4:54 AM CST Reason for Disposition ? ? [1] MILD-MODERATE pain AND [2] constant AND [3] present > 2 hours Protocols used: ABDOMINAL PAIN - MALE-A-AH Patient calling with multiple on going complaints--abdominal pain, prescribe in case he had return/worsening colon pain stool softeners, laxatives reports worsening chills tonight but no fever. Care advice reviewed, expressed frustration first about multiple COVID tests then expresses concern that symptoms may be related to COVID. Also expressed frustration with going to ED/UC, states no private physician will take him , reviewed options for finding PCP, states understanding. Care advice reviewed and states understanding. GER FREELANCE documented in this encounter Plan of Treatment Not on file documented as of this encounter Visit Diagnoses Not on filedocumented in this encounter
--- OUTSIDE RECORDS SUMMARY | 2024-09-10 04:19 | XMS_ITS | Encounter Summary ---
Author Organization [facility] Address [address] [facility] Attn: Epic Prelude ADT [place] [address] Care Team Providers Care Meat Specialist Name Role Phone Unavailable Primary Care Provider Unavailabl e Encounter Details Date Type Department Care Team (Latest Contact Info) Description 10/07/2020 Travel Social History Tobacco Use Types Packs/Day [...] COVID-19? No / Unsure 10/07/2020 2:03 AM SURVEILLANCE CAMERA TECHNICIAN documented as of this encounter Plan of Treatment Not on file documented as of this encounter Visit Diagnoses Not on filedocumented in this encounter
--- OUTSIDE RECORDS SUMMARY | 2024-09-10 04:19 | XMS_ITS | Encounter Summary ---
Author Organization [employer] Address [address] [place] [address] Care Team Providers Care Travel Registered Nurse Icu Name Role Phone Unavailable Primary Care Provider Unavailabl e Reason for Visit * Reason Onset Date Comments lump on hand 09/21/2020 Encounter Details Date Type Department Care Team (Late st Contact Info) Description 09/21/2020 Nurse Triage [facility] Nurse condemnation engineer [address] [place] [address] Leticia Flynn RN [address] [place] [address] Social History Tobacco Use Types Packs/Day [...] COVID-19? No / Unsure 09/21/2020 6:04 AM MANUFACTURING HELPER documented as of this encounter Miscellaneous Notes * Telephone Encounter - Leticia Flynn RN - 09/21/2020 7:49 AM CST Returning call back to patient regarding further questions about fluid retention and heart failure,denies chest pressure, chest pain, shortness of breath, dizziness, edema. Questions answered to patient's satisfaction. Encouraged to call back if further questions or concerns. FACTURING HELPER * Telephone Encounter - Leticia Flynn RN - 09/21/2020 5:49 AM CST Reason for Disposition ??? [1] Swelling is painful to touch AND [2] no fever Protocols used: SKIN LUMP OR LOCALIZED [id number] Patient calling to report painful lump to left hand x 24 hours seems to be getting bigger , hand feels tight when using hand. Care advice reviewed, states understanding, indicates he will go to ED this evening as he does not like/trust local walk in clinics/. FACTURING HELPER documented in this encounter Plan of Treatment Not on file documented as of this encounter Visit Diagnoses Not on filedocumented in this encounter
--- OUTSIDE RECORDS SUMMARY | 2024-09-10 04:19 | XMS_ITS | Encounter Summary ---
Author Organization [employer] Address [address] [place] [address] Care Team Providers Care Salesperson Sheet Music Name Role Phone Unavailable Primary Care Provider Unavailabl e Reason for Visit * Reason Onset Date Comments Rib Pain 06/12/2018 Encounter Details Date Type Department Care Team (Late st Contact Info) Description 06/12/2018 [facility] zoning assistant [address] [place] [address] Ana Maria Skaggs RN Social [...] Encounter - Ana Maria Douglas RN - 06/12/2018 12:33 AM CDT Reason for Disposition ? ? [1] Chest pain lasts > 5 minutes AND [2] age > 30 AND [3] at least one cardiac risk factor (i.e., hypertension, diabetes, obesity, smoker or strong family history of heart disease) Protocols used: CHEST PAIN-A-AH Patient states he feels ok at time of call. Refusing 911 again at time of call. Patient states hedoes not wish to have a call back tomorrow. Patient states he will seek treatment in ED tomorrow ifpain has not improved. * Telephone Encounter - Ana Maria Douglas RN - 06/12/2018 12:21 AM CDT Regarding: Has question about RUSSO and side pain ----- Message from Sheryl Green sent at 06/12/2018 12:11 AM CDT ----- Patient's [address] on [address] [address] [place] [address] Patient's current location: Same as above documented in this encounter Plan of Treatment Not on file documented as of this encounter Visit Diagnoses Not on filedocumented in this encounter
--- OUTSIDE RECORDS SUMMARY | 2024-09-10 04:19 | XMS_ITS | Encounter Summary ---
Author Organization [employer] Address [address] [place] [address] Care Team Providers Care Rod Pointer Name Role Phone Unavailable Primary Care Provider Unavailabl e Reason for Visit * Reason Comments Anxiety stated was dropped by his psychiatrist who has been prescribing xanax - pt not answering questions regarding time frame of occurrence - reported having shakey feeling, palpitations, diarrhea d/t anxiety - radial pulse regular - reported calling multiple psychiatrist but nobody will help me , has appt [facility] on Dec [facility] - denied Si/HI Encounter Details Date Type Department Care Team (Late st Contact Info) Description 11/18/2019 5:49 AM CARPENTER'S ASSISTANT - 11/18/2019 7:29 AM CARPENTER'S ASSISTANT Emergency [facility] [place] [address] rAie Justice MD [address] [facility] [place] [address] Anxiety state (Primary Dx); PTSD (post-traumatic stress disorder) Discharge Disposition: Home or Self Care Social [...] Comments Blood Pressure 152/94 11/18/2019 7:07 AM CARPENTER'S ASSISTANT Pulse 66 11/18/2019 7:07 AM CARPENTER'S ASSISTANT Temperature 36.7 ??C (98.1 ??F) 11/18/2019 5:34 AM CS T Respiratory Rate 18 11/18/2019 7:07 AM CARPENTER'S ASSISTANT Oxygen Saturation 98% 11/18/2019 7:07 AM CARPENTER'S ASSISTANT Inhaled Oxygen Concentration - - Weight 120.2 kg (265 lb) 11/18/2019 5:34 AM CARPENTER'S ASSISTANT Height 188 cm (6' 2 ) 11/18/2019 5:34 AM CARPENTER'S ASSISTANT Body Mass Index 34.02 11/18/2019 5:34 AM CARPENTER'S ASSISTANT documented in this encounter Discharge Instructions * Discharge Instructions* Arie Justice MD - 11/18/2019 6:59 AM CARPENTER'S ASSISTANT Call the referral physician on next available weekday for an appointment this week Take all medicines as directed. You have been given a medicine which may cause drowsiness. DO NOT DRIVE OR OPERATE DANGEROUS MACHINERY while taking this medicine! Call our Community Toll Gate Tender at [phone] to arrange a new primary care provider and assistance in scheduling a new patient appointment ENTER'S ASSISTANT * Attachments The following attachments cannot be sent through Care Everywhere. * Anxiety Disorder (Congolese) documented in this encounter Medications at Time of Discharge Medication Sig Dispensed Refills Start Date End Date omeprazole (PriLOSEC) 40 mg Capsule, Delayed Release(E.C.) Take 40 mg by mouth daily. ibuprofen (MOTRIN) 600 mg tablet Take 1 Tablet (600 mg) by mouth every 6 hours as needed for Pain, Mild. 20 Tablet None 10/30/2016 fluticasone (FLONASE) 50 mcg/spray Ira, Suspension Administer 2 Sprays in each nostril [...] hours as needed for Shortness of Breath. hydroxyzine HCL (ATARAX) 25 mg tablet Take 1 Tablet (25 mg) by mouth every 6 hours as needed for Anxiety or Itching. 40 Tablet 11/18/2019 11/28/2019 documented as of this encounter ED Notes * Silvia Edwards RN - 11/18/2019 6:50 AM CST MD Justice is at the bedside assessing and updating this pt on his plan of care ENTER'S ASSISTANT * Silvia Edwards RN - 11/18/2019 6:00 AM CST This RN agrees with this triage note, stated was dropped by his psychiatrist who has been prescribing xanax - pt not answering questions regarding time frame of occurrence - reported having shakeyfeeling, palpitations, diarrhea d/t anxiety - radial pulse regular - reported calling multiple psychiatrist but nobody will help me , has appt with [facility] on Dec 11 - denied Si/HI Pt is aox4; pt's breathing is equal and non-labored and he appears to be in no distress; pt's skin is intact and WNL Pt is resting quietly and their call light is within reach, the pt verbalizes understanding of how to use it; pt denies any needs at this time and is awaiting assessment from the MD ENTER'S ASSISTANT * Arie Justice MD - 11/18/2019 5:29 AM CST HISTORY OF PRESENT ILLNESS Carlos Kelly, a 49 y.o. male presents to the ED with a Chief Complaint of Anxiety Subjective Documented Triage Chief Complaint: Anxiety 6:06 AM: Carlos Kelly is a 49 y.o. male with a history of HTN, diabetes, anxiety, panic attacks, and depression who presents with worsening anxiety from running out of his Xanax prescription. Hispast charts show that he has been out of his medication for approximately one week. However, pt states he has only been out one day as he has been breaking them up to make it last . Pt states that he has an appointment on December 11 at [facility] but is unable to wait that long. He is fearful that he will from withdrawal. Pt states that he has been taking Xanax for 22 years. Associated symptoms include shakiness, insomnia, and diaphoresis. Pt also reports having 190/103 blood pressure prior to arrival. He complains that his PCP refuses to prescribe the Xanax. Denies SI, HI, or delusions. Patient was seen at [facility] this morning approximately one hour prior to arrival. He was seenat [facility] yesterday and [facility] two days ago without receiving a Xanax prescription. Severity: Mild Duration: 1 week Progression: Worsening Quality: Radiation: Associated symptoms: Insomnia, diaphoresis, shakiness Primary Care Doctor: No primary care provider on file. History provided by: The patient retail service specialist used: No Arrived by: Private vehicle Arrived from: Other REVIEW OF SYSTEMS Review of Systems Constitutional: Positive for diaphoresis. Negative for chills, fatigue and fever. HENT: Negative for congestion, ear pain, sinus pressure, sore throat, trouble swallowing and voice change. Respiratory: Negative for cough, chest tightness and shortness of breath. Cardiovascular: Negative for chest pain, palpitations and leg swelling. Gastrointestinal: Negative for abdominal pain, diarrhea, nausea and vomiting. Genitourinary: Negative for difficulty urinating, dysuria, flank pain, frequency and urgency. Musculoskeletal: Negative for back pain. Skin: Negative for pallor and rash. Neurological: Positive for tremors. Negative for dizziness, speech difficulty, light-headedness andheadaches. Psychiatric/Behavioral: Positive for sleep disturbance. Negative for confusion, self-injury and suicidal ideas. The patient is [...] HOME MEDICATIONS Discharge Medication List as of 11/18/2019 7:01 AM START taking these medications Details hydroxyzine HCL (ATARAX) 25 mg tablet Take 1 Tablet (25 mg) by mouth every 6 hours as needed for Anxiety or Itching., Disp-40 Tablet, R-0 CONTINUE these medications which have NOT CHANGED Details omeprazole (PriLOSEC) 40 mg Capsule, Delayed Release(E.C.) Take 40 mg by mouth daily. ibuprofen (MOTRIN) 600 mg tablet Take 1 Tablet (600 mg) by mouth every 6 hours as needed for Pain, Mild., Disp-20 Tablet, R-None fluticasone (FLONASE) 50 mcg/spray Ira, Suspension Administer 2 Sprays in each nostril daily., Disp-16 Gram, R-0 hyoscyamine 0.[address], [address] 1 Tablet (0.125 mg) under tongue every 4 hours as needed for Spasm., Disp-15 Tablet, R-0 promethazine (PHENERGAN) 25 mg tablet Take 1 Tablet (25 mg) by mouth every 6 hours as needed for Nausea., Disp-30 Tablet, R-None atenolol (TENORMIN) 100 mg tablet Take 0.5 Tablet (50 mg) by mouth 2 times daily., Disp-10 Tablet, R-0 albuterol 90 mcg/Actuation HFA inhaler Take 2 Puffs by inhalation every 6 hours as needed for Shortness of Breath. sucralfate (CARAFATE) 1 gram tablet Take 1 Tablet (1 Gram) by mouth 4 times daily before meals and at bedtime., Disp-30 Tablet, R-None ondansetron (ZOFRAN ODT) 4 mg Tablet, Rapid Dissolve Place 1 Tablet (4 mg) under tongue every 6 hours as needed for Nausea/Emesis., Disp-30 Tablet, R-0 citalopram (CeleXA) 40 mg tablet Take 1 Tablet (40 mg) by mouth daily., Disp-30 Tablet, R-0 HYDROcodone-acetaminophen (NORCO) 5-325 mg tablet Take 1 Tablet by mouth every 4 hours as needed for Pain, Moderate. verapamil (CALAN) 40 mg Tablet Take 1 Tablet (40 mg) by mouth every 12 hours., Disp-30 Tablet, R-0 meclizine (ANTIVERT) 25 mg tablet Take 25 mg by mouth 2 times daily as needed for Dizziness. STOP taking these medications escitalopram oxalate (LEXAPRO) 20 mg tablet Comments: Reason for Stopping: ALPRAZolam (XANAX) 1 mg tablet Comments: Reason for Stopping: ALPRAZolam (XANAX) 2 mg tablet Comments: Reason for Stopping: amoxicillin (AMOXIL) 875 mg tablet Comments: Reason for Stopping: methylPREDNISolone (MEDROL, BIJU,) 4 mg Tablets, Dose Pack Comments: Reason for Stopping: ranitidine (ZANTAC) 150 mg tablet Comments: Reason for Stopping: Objective PHYSICAL EXAM INITIAL VS BP: (!) 160/94 (11/18/19533), Heart Rate: 64 bpm (11/18/19533), Resp: 16 (11/18/19533), Pulse: 66 (11/18/19706), Temp: 98.1 ??F (36.7 ??C) (11/18/19533), Temp src: Oral (11/18/19533), SpO2: 100 % (11/18/19533), Height: 6' 2 (188 cm) (11/18/19533), Weight: 120.2 kg (265 lb) (11/18/19533), BMI (Calculated): 34.01 (11/18/19533) No LMP for male patient. Physical Exam Vitals signs and nursing note reviewed. Constitutional: General: He is not in acute distress. Appearance: He is not diaphoretic. HENT: Head: Normocephalic and atraumatic. Mouth/Throat: Pharynx: No oropharyngeal exudate. Eyes: General: No scleral icterus. Right eye: No discharge. Left eye: No discharge. Conjunctiva/sclera: Conjunctivae normal. Pupils: Pupils are equal, round, and reactive to light. Neck: Musculoskeletal: Normal range of motion and neck supple. Thyroid: No thyromegaly. Trachea: No tracheal deviation. Cardiovascular: Rate and Rhythm: Normal rate and regular rhythm. Heart sounds: Normal heart sounds. Pulmonary: Effort: Pulmonary effort is normal. Breath sounds: Normal breath sounds. Abdominal: General: Bowel sounds are normal. There is no distension. Palpations: Abdomen is soft. Tenderness: There is no abdominal tenderness. There is no rebound. Musculoskeletal: Normal range of motion. General: No tenderness. Skin: General: Skin is warm and dry. Findings: No erythema or rash. Neurological: Mental Status: He is alert and oriented to person, place, and time. Cranial Nerves: No cranial nerve deficit. Motor: No tremor. Coordination: Coordination normal. Psychiatric: Behavior: Behavior normal. Thought Content: Thought content normal. Thought content is not delusional. Thought content does not include homicidal or suicidal ideation. Thought content does not include homicidal or suicidal plan. Judgment: Judgment normal. Comments: Pt blatantly lied by stating that he has been out of Xanax for 1 day when past records show drug-seeking behavior for at least 1 week. DIAGNOSTICS LAB: No data to display RADIOLOGY: No orders to display No orders to display EKG: Normal sinus rhythm, rate of 67, LAE, normal axis, poor baseline but appears to have no ST/T wave changes to suggest ischemia PROCEDURES Procedures MEDICAL DECISION MAKING AND PLAN OF CARE --On initial encounter, patient seen and examined by me. Plan to prescribe Atarax and provide referrals to PCP, psychiatrist, and case management. 7:05 AM: Patient's symptoms have improved. RTER with worsening sx. Pt understands and agrees with the plan. All questions and concerns addressed. The patient is stable for discharge. ED provider and ED nurse verbally discussed patient plan of care at this time. MDM Summary Statement: 49 yo male is well known to multiple EDs who presents for medication refill. Pt requesting 2mg xanax tablets. He has been seen at virtually every ED [facility], multiple times without refills. He has stated every time he is out of xanax. Pt is not tremulous or displaying any signs of withdrawal. He alleges that he has been out since November 11, so I doubt withdrawal at this time. Will prescribe Atarax. Provided referrals for case management, PCP, and psychiatrist. I have reviewed previous: notes I have reviewed current: ECG I have reviewed nursing notes related to past medical history, social history, and review of systems and agree, unless otherwise noted. Discharge Medication List as of 11/18/2019 7:01 AM START taking these medications Details hydroxyzine HCL (ATARAX) 25 mg tablet Take 1 Tablet (25 mg) by mouth every 6 hours as needed for Anxiety or Itching., Disp-40 Tablet, R-0 CONTINUE these medications which have NOT CHANGED Details omeprazole (PriLOSEC) 40 mg Capsule, Delayed Release(E.C.) Take 40 mg by mouth daily. ibuprofen (MOTRIN) 600 mg tablet Take 1 Tablet (600 mg) by mouth every 6 hours as needed for Pain, Mild., Disp-20 Tablet, R-None fluticasone (FLONASE) 50 mcg/spray Ira, Suspension Administer 2 Sprays in each nostril daily., Disp-16 Gram, R-0 hyoscyamine 0.125 mg Tablet, Sublingual Place 1 Tablet (0.125 mg) under tongue every 4 hours as needed for Spasm., Disp-15 Tablet, R-0 promethazine (PHENERGAN) 25 mg tablet Take 1 Tablet (25 mg) by mouth every 6 hours as needed for Nausea., Disp-30 Tablet, R-None atenolol (TENORMIN) 100 mg tablet Take 0.5 Tablet (50 mg) by mouth 2 times daily., Disp-10 Tablet, R-0 albuterol 90 mcg/Actuation HFA inhaler Take 2 Puffs by inhalation every 6 hours as needed for Shortness of Breath. sucralfate (CARAFATE) 1 gram tablet Take 1 Tablet (1 Gram) by mouth 4 times daily before meals and at bedtime., Disp-30 Tablet, R-None ondansetron (ZOFRAN ODT) 4 mg Tablet, Rapid Dissolve Place 1 Tablet (4 mg) under tongue every 6 hours as needed for Nausea/Emesis., Disp-30 Tablet, R-0 citalopram (CeleXA) 40 mg tablet Take 1 Tablet (40 mg) by mouth daily., Disp-30 Tablet, R-0 HYDROcodone-acetaminophen (NORCO) 5-325 mg tablet Take 1 Tablet by mouth every 4 hours as needed for Pain, Moderate. verapamil (CALAN) 40 mg Tablet Take 1 Tablet (40 mg) by mouth every 12 hours., Disp-30 Tablet, R-0 meclizine (ANTIVERT) 25 mg tablet Take 25 mg by mouth 2 times daily as needed for Dizziness. STOP taking these medications escitalopram oxalate (LEXAPRO) 20 mg tablet Comments: Reason for Stopping: ALPRAZolam (XANAX) 1 mg tablet Comments: Reason for Stopping: ALPRAZolam (XANAX) 2 mg tablet Comments: Reason for Stopping: amoxicillin (AMOXIL) 875 mg tablet Comments: Reason for Stopping: methylPREDNISolone (MEDROL, BIJU,) 4 mg Tablets, Dose Pack Comments: Reason for Stopping: ranitidine (ZANTAC) 150 mg tablet Comments: Reason for Stopping: LAST VS BP: (!) 152/94 (11/18/19706), Heart Rate: 66 bpm (11/18/19706), Resp: 18 (11/18/19706), Pulse: 66 (11/18/19706), Temp: 98.1 ??F (36.7 ??C) (11/18/19533), Temp src: Oral (11/18/19533), SpO2: 98 % (11/18/19706) CLINICAL IMPRESSION Final diagnoses: [F41.1] Anxiety state (Primary) [F43.10] PTSD (post-traumatic stress disorder) DISPOSITION, EDUCATION AND MEDICATION RECONCILIATION Medications reconciled. See after visit summary for patient education on discharged patients. ED Disposition ED Disposition Condition User Date/Time Comment Discharge Stable Arie Justice MD Sat Nov 18, 2019 6:58 AM ATTESTATION STATEMENTS This note has been prepared by Lin Matson acting as a scribe for Dr. Arie Justice on 11/18/2019 at 7:31 AM The scribe's documentation has been prepared under my direction and personally reviewed by me, Arie Justice M.D. , in its entirety on 11/18/19 at 10:48 AM. I confirm that the note above accuratelyreflects all work, treatment, procedures, and medical decision making performed by me. ENTER'S ASSISTANT documented in this encounter Plan of Treatment Not on file documented as of this encounter Procedures Procedure Name Priority Date/Time Associated Diagnosis Comments EKG 12-LEAD Stat 11/18/2019 6:07 AM CARPENTER'S ASSISTANT documented in this encounter Results * EKG 12-LEAD (11/18/2019 6:07 AM CARPENTER'S ASSISTANT) 11/18/2019 6:07 AM CARPENTER'S ASSISTANT Narrative INTERFACE SYSTEM - 11/19/2019 8:53 PM CDT ? Stationary [facility] ? Test Date: ?11/18/2019 6:07 AM Pat Name: ? VINCENT CORPUS ? Department: ?? 40 ?Room: ? 56 56 Gender: ? M ?Machine Specialist: ?? [email or web address] : ?1970 ? Requested By: ?? Order Number: [id number] ?Reading MD: ?? Aneesh Estevez ? Measurements Intervals ?[place] ? Rate: ? 67 ? P: ?34 IN: ? 163 ?QRS: ?22 QRSD: ? 97 ? T: ?2 QT: ? 409 ? QTc: ?432 ? Interpretive Statements ? Sinus rhythm Left atrial enlargement Borderline T abnormalities, inferior leads Electronically Signed On 11-19-2019 20:53:31 CDT by Aneesh Estevez Procedure Note Aneesh Estevez MD - 11/19/2019 Stationary ECG Study [facility] Test Date: 11/18/2019 6:07 AM Pat Name: CARLOS KELLY Department: 40 [facility] Gender: M Machine Specialist: [email or web address] : 1970 Requested By: Order Number: [id number] Reading MD: Aneesh sEtevez Measurements Intervals [place] Rate: 67 P: 34 IN: 163 QRS: 22 QRSD: 97 T: 2 QT: 409 QTc: 432 Interpretive Statements Sinus rhythm Left atrial enlargement Borderline T abnormalities, inferior leads Electronically Signed On 11-19-2019 20:53:31 CDT by Aneesh Estevez Arie Justice MD ECG ORDERABLES INTERFACE SYSTEM Refer to clinic/hospital department documented in this encounter Visit Diagnoses Diagnosis Anxiety state- Primary Anxiety state, unspecified PTSD (post-traumatic stress disorder) Posttraumatic stress disorder documented in this encounter
--- OUTSIDE RECORDS SUMMARY | 2024-09-10 04:19 | XMS_ITS | Encounter Summary ---
Author Organization [employer] Address [address] [place] [address] Care Team Providers Care Credit Risk Associate Name Role Phone Unavailable Primary Care Provider Unavailabl e Reason for Visit * Reason Onset Date Comments Question 04/08/2020 Encounter Details Date Type Department Care Team (Late st Contact Info) Description 04/08/2020 Nurse Triage [facility] Nurse talent consultant [address] [place] [address] Corrie Lovell Social History Tobacco Use Types Packs/Day Years [...] encounter Miscellaneous Notes * Telephone Encounter - Corrie Lovell - 04/08/2020 2:16 PM CDT Reason for Disposition ??? Documentation only? Caller had questions reguarding COVID but did not want to respond to questions asked by form press operator. Caller was encouraged to stay on the line and finish the questions however he declined our services. Protocols used: DENZEL NOC P ANSWERING SERVICE * Telephone Encounter - Corrie Lovell - 04/08/2020 2:16 PM CDT Regarding: Questions about COVID ----- Message from Corrie Lovell sent at 04/08/2020 2:16 PM CDT ----- Patient's [address] on file: [address] [address] Patient's current location: Same as above documented in this encounter Plan of Treatment Not on file documented as of this encounter Visit Diagnoses Not on filedocumented in this encounter
--- OUTSIDE RECORDS SUMMARY | 2024-09-10 04:19 | XMS_ITS | Patient Health Record ---
Author Organization [facility] Address [address] [address] Care Team Providers Care Wind Turbine Performance Engineer Name Role Phone Charanjit Sheffield Primary Care Provider [phone] Allergies Allergen (clinical drug ingredient) Drug/Non Drug Allergy documented on EMR Reaction Allergy Type Onset Date Status sulfamethoxazole / trimethoprim Bactrim Unknown Drug Allergy Active sulfamethoxazole / trimethoprim Bactrim DS Unknown Drug Allergy Active BuSpar Unknown Drug Allergy Active paroxetine Paxil Unknown Drug Allergy Active Sulfacet-R Unknown Drug Allergy Active clindamycin Clindacin ETZ Unknown Drug Allergy A ctive Reason For Referral No Information Medications Medication SIG (Take, Route, Frequency, Duration) Notes Start Date End Date Status CeleXA 20 MG 1 tablet Orally Once a day for 30 days 01/09/2020 Active Trandolapril 2 MG 1 tablet Orally Once a day Not-Taking ALPRAZolam 2 MG 1 tablet Orally BID as needed for 30 days Active Promethazine HCl 25 MG 1 tablet as neede d Orally every 6 hrs for 5 days 01/23/2020 Not-Taking Flagyl 500 MG 1 tablet Orally Three times a day for 3 days 02/21/2020 Active hydroCHLOROthiazide 12.5 MG 1 tablet in the morning Orally Once a day Not-Taking Ciprofloxacin HCl 500 MG 1 tablet Orally every 12 hrs for 3 days 02/21/2020 Active hydrALAZINE HCl 25 MG 1 tablet Orally Three times a day Not-Taking Omeprazole 40 MG 1 tablet 30 minutes before morning meal Orally Once a day for 30 days Active Wfyhkqdh-Ugmhhully-Zbluweqw 0.1 % 1 application into the lower eyelid of affected eye Ophthalmic Three times a day for 7 days 02/06/2020 Not-Taking Promethazine HCl 25 MG 1 tablet as neede d Orally every 6 hrs as needed Active Fluticasone Propionate 50 MCG/ACT 2 spray in each nostril Nasally Once a day for 30 days Active Atenolol 100 MG 1 tablet Orally Once a day for 15 Active Meclizine HCl 25 MG 1 tablet as needed Orally Active Hyoscyamine Sulfate SL 0.125 MG 1 tablet under the tongue and allow to dissolve as needed Sublingual every 6 hrs as needed Active Cyclobenzaprine HCl 10 MG Orally Not-Taking diphenhydrAMINE HCl 50 MG 1 capsule at b edtime as needed Orally Once a day Active Albuterol Sulfate HFA 108 (90 Base) MCG/ACT Inhalation Not-Taking Social History Tobacco Use: Social History Observation Description Date Details (start date - stop date) Never Smoker NA - NA Tobacco Use/Smoking Question Answer Notes Are you a nonsmoker Alcohol Screen (Audit-C) Question Answer Notes Did you have a drink containing alcohol in the p ast year? No Points 0 Interpretation Negative Sexual History Question Answer Notes Had sex in the past 12 months (vaginal, oral, or anal)? Yes with Women only Use protection? Yes How often? All of the time Prevention strategies discussed: Condoms Have you ever had a Sexually transmitted disease ? No Problems Problem Type SNOMED Code ICD Code Onset Dates Problem Status W/U Status Risk Notes Problem 458285418071 Type 2 diabetes mellitus with other specified complication (E11.69) Active confirmed Problem 974111630 Mixed hyperlipidemia (E78.2) Active confirmed Problem 605386275 Nausea (R11.0) Active confirmed Problem 03632926 Anxiety (F41.9) Active confirmed Problem 663698528 Gastroesophageal reflux disease without esophagitis (K21.9) Active confirmed Problem 369850985 Mild intermitten t asthma without complication (J45.20) Active confirmed Problem 39105766 Essential hypertension (I10) Active confirmed Problem 723362432 Vertigo (R42) Active confirmed Problem 63192263 Neck pain (M54.2) Active confirmed Problem Abdominal pain (42122137) Abdominal pain (R10.9) Active confirmed Problem Depression (495233804) Depression (F32.9) Active confirmed Problem 914198741 Cervical spondylosis (M47.812) Active confirmed Problem Pain in right arm (933721245) Right arm pain (M79.601) Active confirmed Problem 476706222 Type 2 diabetes mellitus without complication, without long-term current use of insulin (E11.9) Active confirmed Problem History of gastrointestinal disease (886039825) History of diverticulosis (Z87.19) Active confirmed Problem 30082318 Allergic rhiniti s due to other allergic trigger, unspecified seasonality (J30.89) Active confirmed Problem 681743237 S/P cholecystectomy (Z90.49) Active confirmed Problem 59833020 Recurrent major depressive disorder, in partial remission (F33.41) Active confirmed Problem 78766534 Non-seasonal allergic rhinitis, unspecified trigger (J30.89) Active confirmed Problem 887200084 Elevated LFTs (R79.89) Active confirmed Problem 75416020 Discomfort of le ft eye (H57.12) Active confirmed Plan Of Treatment No Information Insurance Providers Payer Name Payer Address Payer Phone Subscriber Number Group Number Insured Name Patient Relationship to Insured Coverage Start Date Coverage End Date [address] [id number] WADE KELLY Self - patient is the insured 9 Medical (General) History Medical History History ICD Code sinusitis Vertigo Asthma Sleep Apnea diverticulitis fatty liver 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
--- OUTSIDE RECORDS SUMMARY | 2024-09-10 04:20 | XMS_ITS | Encounter Summary ---
Author Organization [employer] Address [address] [place] [address] Care Team Providers Care Rn Acls Name Role Phone Unavailable Primary Care Provider Unavailabl e Reason for Visit * Reason Comments Anxiety pt just d/c'd for an xiety, pt states his ride left him because the visit was taking too long and they will not come back until the morning. Pt reports anxiety is increasing, states he has not taken his anxiety medication for a 1 day now and anxiety is increasing. Pt provided script in the ED, unable to fill at this time. Pt calm, cooperative. * Auth/Cert Specialty Diagnoses / Procedures Referred By Redd mobley Referred To Contact Emergency Medicine [facility] Emergency Dept [address] [place] [address] Referral ID Status Reason Start Date Expiration Date Visits Re quested Visits Authorized [id number] 1 1 Encounter Details Date Type Department Care Team (Late st Contact Info) Description 09/01/2016 3:01 AM CASE MONITOR - 09/01/2016 3:47 AM [facility] Emergency [facility] Emergency Department [address] [place] [address] Edwin Rice MD [address] [place] [id number] Anxiety state (Primary Dx) Discharge Disposition: [...] Sign Reading Time Taken Comments Blood Pressure 137/85 09/01/2016 2:59 AM CASE MONITOR Pulse - - Temperature 36.6 ??C (97.9 ??F) 09/01/2016 2:59 AM CS T Respiratory Rate 18 09/01/2016 2:59 AM CASE MONITOR Oxygen Saturation 98% 09/01/2016 2:59 AM CASE MONITOR Inhaled Oxygen Concentration - - Weight 130.6 kg (288 lb) 09/01/2016 2:59 AM CASE MONITOR Height 188 cm (6' 2 ) 09/01/2016 2:59 AM CASE MONITOR Body Mass Index 36.98 09/01/2016 2:59 AM CASE MONITOR documented in this encounter Discharge Instructions * Attachments The following attachments cannot be sent through Care Everywhere. * ANXIETY DISORDER (GEORGIAN) documented in this encounter Medications at Time of Discharge Medication Sig Dispensed Refills Start Date End Date promethazine (PHENERGAN) 25 mg tablet Take 1 Tablet (25 mg) by mouth every 6 hours as needed for Nausea. 30 Tablet None 07/17/2016 meclizine (ANTIVERT) 25 mg tabletIndications:Diab etes mellitus type 2, controlled, without complications,Sleep apnea, unspecified sleep apnea type,Benign hypertension Take 25 mg by mouth 2 times daily as needed for Dizziness. atenolol (TENORMIN) 100 mg tablet Take 0.5 Tablet (50 mg) by mouth 2 times daily. 10 Tablet 0 12/03/2015 albuterol 90 mcg/Actuation HFA inhaler Take 2 Puffs by inhalation every 6 hours as needed for Shortness of Breath. ALPRAZolam (XANAX) 2 mg tablet Take 1 Tablet (2 mg) by mouth 3 times daily as needed for Anxiety. 21 Tablet 09/01/2016 09/12/2016 sucralfate (CARAFATE) 1 gram tablet Take 1 Gram by mouth 4 times daily before meals and at bedtime. 06/04/2017 omeprazole (PriLOSEC) 40 mg Capsule, Delayed Release(E.C.) Take 1 Capsule (40 mg) by mouth daily. 30 Capsule None 07/17/2016 09/12/2016 ciprofloxacin HCl (CIPRO) 500 mg tablet Take 1 Tablet (500 mg) by mouth 2 times daily. 20 Tablet None 07/17/2016 10/04/2016 acetaminophen (TYLENOL) 325 mg tablet Take 650 mg by mouth nightly as needed . 10/30/2016 documented as of this encounter Progress Notes * Minal Saldaña RN - 09/01/2016 3:47 AM CST Patient educated in mailed educational materials on appropriate ED usage. Provided ED IS FOR EMERGENCIES letter and resources for alternative care. Patient has not been referred to [facility] for PCP follow up. Has been referred to [facility] in the past and cancelled every follow up appointment made. [facility] contact information included in mailed material. CM contact information provided for further assistance if needed. Minal Saldaña RN [facility] Rn Ed [id number] MONITOR documented in this encounter ED Notes * Leslie Gallardo RN - 09/01/2016 3:44 AM CST Pt medicated per MAR. Patient/family has been informed about benefits and any potential clinically significant side effects or other concerns regarding the administration of the drug they have just been given. MONITOR * Leslie Gallardo RN - 09/01/2016 3:20 AM CST This RN agrees with triage note: pt just d/c'd for anxiety, pt states his ride left him because the visit was taking too long and they will not come back until the morning. Pt reports anxiety is increasing, states he has not taken his anxiety medication for a 1 day now and anxiety is increasing. Pt provided script in the ED, unable to fill at this time. Pt calm, cooperative. Respirations even and non-labored, no acute distress noted. MONITOR * Edwin Rice MD - 09/01/2016 2:57 AM CST HISTORY OF PRESENT ILLNESS Carlos Mcgee, a 46 y.o. male presents to the ED with a Chief Complaint of Anxiety Subjective HPI Comments: 3:31 AM: Physician at patient bedside. Carlos Mcgee is a 46 y.o. male with a history of depression, anxiety, diverticulitis, DM, HTN, chronic neck pain and PTSD who presents to the Emergency Department for evaluation of anxiety. Pt was seen in the ED earlier today for anxiety and was given a prescription for Xanax. Pt states that his ride left while he was being seen and he lives in [place], so he will not be able to get a ride home until the morning. Pt states that he has not had a chance to get his script filled as he does not have a car. Pt states that he has not had a Xanax in 30 hours. Pt is requesting a Xanax to hold him over until he can get his prescription filled. The pt denies any other sx. PCP: No primary care provider on file. History provided by: The patient Arrived by: Private vehicle Arrived from: Home REVIEW OF SYSTEMS Review of Systems Constitutional: Negative for chills and fever. Respiratory: Negative for cough, chest tightness and shortness of breath. Cardiovascular: Negative for chest pain. Gastrointestinal: Negative for abdominal pain, nausea and vomiting. Genitourinary: Negative for difficulty urinating, dysuria, flank pain, hematuria and urgency. Musculoskeletal: Negative for back pain and neck pain. Skin: Negative for rash. Allergic/Immunologic: Negative for immunocompromised state. Neurological: Negative for weakness. Psychiatric/Behavioral: Positive for behavioral problems, decreased concentration and sleep disturbance. Negative for hallucinations and suicidal ideas. The patient is nervous/anxious. The patient isnot hyperactive. + anxiety PAST MEDICAL HISTORY REVIEWED MEDICAL: Patient has a past medical history of Anxiety; Chronic neck pain; Depression (anxiety); Diabetes; Diverticulitis; HTN (hypertension); Panic attacks; and PTSD (post-traumatic stress disorder). SURGICAL: Patient has a past surgical history that includes chg anes removal gallbladder and cholecystectomy. FAMILY: Patient's family history includes Diabetes in his maternal grandfather and maternal grandmother; Other in his father; Stroke in his father. SOCIAL: reports that he quit smoking about 20 years ago. His smoking use included Cigarettes. He has a 2.00pack-year smoking history. He has never used smokeless tobacco. He reports that he does not drink alcohol or use illicit drugs. No history on file. Social History Other Topics Concern ??? Not on file PROBLEM LIST: Patient has Cervical stenosis of spinal canal; Costochondral chest pain; Paresthesias with subjective weakness; PTSD (post-traumatic stress disorder); GERD (gastroesophageal reflux disease); Diabetesmellitus type 2, controlled, without complications; Blurry vision, bilateral; Anxiety; Neck pain; Chest pain; Pleuritic chest pain; Sedative, hypnotic or anxiolytic abuse, continuous; Esophageal reflux; Diverticulitis of colon; Depression; Non-specific colitis; Acute abdominal pain; Depression withanxiety; Microcytic anemia; and SOB (shortness of breath) on his problem list. ALLERGIES Bactrim [sulfamethoxazole-trimethoprim]; Bystolic [nebivolol]; Carvedilol; Clindamycin; Clonidine; Contrast [iodinated contrast media - iv dye]; Hydralazine; Levaquin [levofloxacin]; Lidocaine; Lisinopril; Morphine; Paxil [paroxetine hcl]; Pepcid [famotidine]; Percocet [oxycodone-acetaminophen]; Sulfa (sulfonamide antibiotics); and Uroseptic ds HOME MEDICATIONS Discharge Medication List as of 09/01/2016 3:34 AM CONTINUE these medications which have NOT CHANGED Details ALPRAZolam (XANAX) 2 mg tablet Take 1 Tablet (2 mg) by mouth 3 times daily as needed for Anxiety., Disp-21 Tablet, R-0 sucralfate (CARAFATE) 1 gram tablet Take 1 Gram by mouth 4 times daily before meals and at bedtime. hyoscyamine 0.125 mg Tablet, Sublingual Place 1 Tablet (0.125 mg) under tongue every 4 hours as needed for Spasm., Disp-15 Tablet, R-0 promethazine (PHENERGAN) 25 mg tablet Take 1 Tablet (25 mg) by mouth every 6 hours as needed for Nausea., Disp-30 Tablet, R-None omeprazole (PriLOSEC) 40 mg Capsule, Delayed Release(E.C.) Take 1 Capsule (40 mg) by mouth daily., Disp-30 Capsule, R-None ciprofloxacin HCl (CIPRO) 500 mg tablet Take 1 Tablet (500 mg) by mouth 2 times daily., Disp-20 Tablet, R-None verapamil (CALAN) 40 mg Tablet [...] mouth 2 times daily., Disp-10 Tablet, R-0 acetaminophen (TYLENOL) 325 mg tablet Take 650 mg by mouth nightly as needed . albuterol 90 mcg/Actuation HFA inhaler Take 2 Puffs by inhalation every 6 hours as needed for Shortness of Breath. Objective PHYSICAL EXAM INITIAL VS BP: 137/85 (09/01/16258), Heart Rate: 72 bpm (09/01/16258), Resp: 18 (09/01/16258), Temp: 97.9 ??F (36.6 ??C) (09/01/16258), Temp src: Oral (09/01/16258), SpO2: 98 % (09/01/16258), Height: 6' 2 (188 cm) (09/01/16258), Weight: 130.6 kg (288 lb) (09/01/16258), BMI (Calculated): 36.96 (09/01/16258) No LMP for male patient. Physical Exam Constitutional: He is oriented to person, place, and time. He appears well- developed and well-nourished. HENT: Head: Normocephalic and atraumatic. Mouth/Throat: Oropharynx is clear and moist. Eyes: Conjunctivae are normal. Neck: Normal range of motion. Cardiovascular: Normal rate. Pulmonary/Chest: Effort normal. Musculoskeletal: Normal range of motion. He exhibits no edema. Neurological: He is alert and oriented to person, place, and time. Skin: Skin is warm and dry. No rash noted. Psychiatric: His speech is normal and behavior is normal. Judgment and thought content normal. His mood appears anxious. Cognition and memory are normal. Vitals reviewed. DIAGNOSTICS LAB: Labs this ED Encounter - No data to display RADIOLOGY: No orders to display EKG: PROCEDURES Procedures MEDICAL DECISION MAKING AND PLAN OF CARE MDM Summary Statement: 46 y.o. Male with hx of anxiety unable to fill medications prescribed at last visit until later today. Does not have a ride. Will provide a single dose of Xanax and discharge the patient. I have reviewed previous: notes I have reviewed nursing notes related to past medical history, social history, and review of systems and agree, unless otherwise noted. ED Course Medications Administered During the ED Stay from 09/01/2016256 to 09/01/2016347 Date/Time Order Dose Route Action 09/01/2016341 ALPRAZolam (XANAX) tablet 2 mg 2 mg Oral Given Discharge Medication List as of 09/01/2016 3:34 AM CONTINUE these medications which have NOT CHANGED Details ALPRAZolam (XANAX) 2 mg tablet Take 1 Tablet (2 mg) by mouth 3 times daily as needed for Anxiety., Disp-21 Tablet, R-0 sucralfate (CARAFATE) 1 gram tablet Take 1 Gram by mouth 4 times daily before meals and at bedtime. hyoscyamine 0.125 mg Tablet, Sublingual Place 1 Tablet (0.125 mg) under tongue every 4 hours as needed for Spasm., Disp-15 Tablet, R-0 promethazine (PHENERGAN) 25 mg tablet Take 1 Tablet (25 mg) by mouth every 6 hours as needed for Nausea., Disp-30 Tablet, R-None omeprazole (PriLOSEC) 40 mg Capsule, Delayed Release(E.C.) Take 1 Capsule (40 mg) by mouth daily., Disp-30 Capsule, R-None ciprofloxacin HCl (CIPRO) 500 mg tablet Take 1 Tablet (500 mg) by mouth 2 times daily., Disp-20 Tablet, R-None verapamil (CALAN) 40 mg Tablet [...] mouth 2 times daily., Disp-10 Tablet, R-0 acetaminophen (TYLENOL) 325 mg tablet Take 650 mg by mouth nightly as needed . albuterol 90 mcg/Actuation HFA inhaler Take 2 Puffs by inhalation every 6 hours as needed for Shortness of Breath. LAST VS BP: 137/85 (09/01/16258), Heart Rate: 72 bpm (09/01/16258), Resp: 18 (09/01/16258), Temp: 97.9 ??F (36.6 ??C) (09/01/16258), Temp src: Oral (09/01/16258), SpO2: 98 % (09/01/16258) CLINICAL IMPRESSION Final diagnoses: [F41.1] Anxiety state (Primary) DISPOSITION, EDUCATION AND MEDICATION RECONCILIATION Medications reconciled. See after visit summary for patient education on discharged patients. Follow up: [facility], PHYSICIAN REFERRAL LINE [phone] To establish a Primary Care Doctor DISCHARGED HOME IN STABLE CONDITION. ATTESTATION STATEMENTS This note has been prepared by Ede Mcduffie acting as a scribe for Dr. Edwin Rice on 09/01/2016 at 3:48 AM. The scribe's documentation has been prepared under my direction and personally reviewed by me, CHANDU,in its entirety on 09/01/16 at 3:48 AM. I confirm that the note above accurately reflects all work,treatment, procedures, and medical decision making performed by me. MONITOR documented in this encounter Plan of Treatment Not on file documented as of this encounter Visit Diagnoses Diagnosis Anxiety state- Primary Anxiety state, unspecified documented in this encounter Administered Medications Inactive Administered Medications - up to 3 most recent administrations Medication Order MAR Action Action Date Dose Rate Site ALPRAZolam (XANAX) tablet 2 mg 2 mg, Oral, ONE TIME ONLY, 1 dose, On Wed09/01/16 at 0345, Routine Given 09/01/2016 3:42 AM CASE MONITOR 2 mg documented in this encounter Active and Recently Administered Medications Times are shown in CASE MONITOR. Scheduled Medication Order 08/30/2016 08/31/2016 09/01/2016 ALPRAZolam (XANAX) tablet 2 mg (COMPLETED) 2 mg, Oral, ONE TIME ONLY, 1 dose, On Wed09/01/16 at 0345, Routine 034 (Given - Provid er: Leslie Montano RN) documented in this encounter
--- OUTSIDE RECORDS SUMMARY | 2024-09-10 04:20 | XMS_ITS | Encounter Summary ---
Author Organization [facility] Address [address] [place] [address] Care Team Providers Care Machine Stone Polisher Apprentice Name Role Phone Unavailable Primary Care Provider Unavailabl e Reason for Visit * Reason Comments Anxiety 47yoM to ED with c/o anxiety. Pt reports an appointment with new psychiatrist in March but reports he is out of xanax at this time. Reports he was prescribed small amount of xanax to relieve anxiety until appointment but that has run out. Pt calm and cooperative. Denies SI/HI Encounter Details Date Type Department Care Team (Late st Contact Info) Description 03/07/2017 9:39 PM CDT - 03/07/2017 10:42 PM CDT Emergency [facility] Emergency Department [address] [place] [address] Tramaine Reyez MD [address] [place] [address] Chronic prescription benzodiazepine use (Primary Dx) Discharge Disposition: Home or Self [...] Sign Reading Time Taken Comments Blood Pressure 150/88 03/07/2017 10:25 PM CDT Pulse - - Temperature 36.7 ??C (98.1 ??F) 03/07/2017 9:36 PM CD T Respiratory Rate 16 03/07/2017 10:25 PM CDT Oxygen Saturation 98% 03/07/2017 10:25 PM CDT Inhaled Oxygen Concentration - - Weight 106.6 kg (235 lb) 03/07/2017 9:36 PM CDT Height 188 cm (6' 2 ) 03/07/2017 9:36 PM CDT Body Mass Index 30.17 03/07/2017 9:36 PM CDT documented in this encounter Discharge Instructions * Discharge Instructions* Yennifer Chambers, TELEPHONE INSTALLER - 03/07/2017 10:27 PM CDT Same Day Access (SDA) is a walk-in clinic serving people with mental health needs. Each walk-in will be seen by a mental health clinician. Where can I access Same Day Access services? Two [facility] ([facility]) locations offer SDA services: [facility] (serving [facility] of [facility] and [facility]) [address], 4th [place] [address] Hours: Wednesday - Wednesday 8:30 a.m. - 3 p.m. [facility] (serving [facility] and [facility]) [address] [place] [address] Hours: Wednesday, Wednesday, , Wednesday 9 a.m. - 3 p.m. Wednesday 9 a.m. - 6 p.m. GENERAL INFORMATION: [phone] Suicide Prevention/Crisis Hotlines [facility] - Behavioral Health Intake Department [phone] [facility] Behavioral Health Intake Department is professionally staffed and offers free, confidential evaluations for anyone needing assistance with a psychiatric, behavioral or addictive disorder. Evaluations, as well as referrals to physicians or community resources, are available 24 hours aday, 7 days a week. [facility] 449-237-KBNS (4357) [facility] is one of the nation???s oldest suicide prevention and crisis hotlines. [facility] operates 24 hours a day, 7 days a week, 365 days a year. Behavioral Health Response ([facility]) [phone] (toll free) Behavioral Health Response (R) is a professionally staffed crisis response service. [facility] provides expert behavioral health, crisis response, and outreach services, 24 hours a day, seven days a week to agencies and companies worldwide. National Suicide Prevention Hotline 7-885-247-TCIW (7886) A free, 24-hour hotline available to anyone in suicidal crisis or emotional distress. Your call will be routed to the nearest crisis center to you. [facility] 2-364-TCZAFMJ KUTO (Kids Under Twenty-One) Crisis Helpline 1-535-385-BETSY (0388) Youth staffed every day after 4pm RESEARCH EPIDEMIOLOGIST The [facility]UTO Crisis Helpline is a confidential telephone hotline available to any youth who may be in need of assistance, referral information or crisis services. The KUTO Helpline is one of a handful [facility] hospital staffed exclusively by youth volunteers. National [place] on Mental Illness ([facility]) 922-409-5057Hjibjzr Prevention/Crisis Hotlines [facility] - Behavioral Health Intake Department [phone] [facility] Behavioral Health Intake Department is professionally staffed and offers free, confidential evaluations for anyone needing assistance with a psychiatric, behavioral or addictive disorder. Evaluations, as well as referrals to physicians or community resources, are available 24 hours aday, 7 days a week. [facility] 595-259-QBBM (3399) [facility] is one of the nation???s [facility] suicide prevention and crisis hotlines. [facility] operates 24 hours a day, 7 days a week, 365 days a year. Behavioral Health Response ([facility]) [phone] (toll free) Behavioral Health Response ([facility]) is a professionally staffed crisis response service. [facility] provides expert behavioral health, crisis response, and outreach services, 24 hours a day, seven days a week to agencies and companies worldwide. National Suicide Prevention Hotline 0-733-997-TALK (0621) A free, 24-hour hotline available to anyone in suicidal crisis or emotional distress. Your call will be routed to the nearest crisis center to you. [facility] [facility] 0-131-CATOVVO KUTO (Kids Under Twenty-One) Crisis Helpline 1-672-047-BETSY (0517) Youth staffed every day after 4pm RESEARCH EPIDEMIOLOGIST The [facility]O Crisis Helpline is a confidential telephone hotline available to any youth who may be in need of assistance, referral information or crisis services. The [facility] Helpline is one of a handful [facility]omas hospital staffed exclusively by youth volunteers. National [place] on Mental Illness ([facility]) [phone] Adult Mental Health Intensive Outpatient Programs (IOP) [facility] Vishnu J[facility] [place] [facility] [phone] Adult Mental Health 9:15AM - 1:15PM M-F Journeys Program (Chronic mental health) 9:00AM - 12:30PM M-F [place], [place] - [phone] Adult Mental Health 8:30AM - 12:00PM M-F [facility]/[place], [place] - [phone] Adult Mental Health 9:30AM - 12:30PM , , F Adult Crisis Management Group 1:00PM - 4:00PM , , F [facility] [phone] Adult Mental Health 4 PM - 7 PM (, , ) & 12 PM - 3 PM (, , F) [facility] [phone] Adult Medicare Program (Similar to Journeys) 9:30AM-12:30PM , , , F [facility] [phone] Adult Medicare Program (Similar to Journeys) 9:25AM - 12:30PM M-F [facility] [phone] Adult Mental Health 9:30AM - 12:30PM M-F [facility] [phone] Adult Medicare Program (Similar to Journeys) 9:30AM - 12:30PM M-F [facility] (Medicare Program for Seniors) 9:30AM - 12:30PM , W, F [phone] Adult Mental Health 9:30AM - 12:30PM M-F PTSD for Former 9:30AM - 12:30PM , W, F Family Support Group for (free) 6:30PM - 8:30PM 4 weeks (every Wed) [place] [phone] Adult Mental Health 9:10AM - 12:30PM M-F Adult Medicare Program (Similar to Journeys) 9:30AM - 12:30PM M-F [facility] - [phone] Adult Mental Health 9:30AM - 12:30PM M-F Adult Medicare Program (Similar to Journeys) 9:30AM - 12:30PM M-F [facility] OCD Support Group 7:00PM Every Wednesday [place], [place] - [phone] or [phone], option 1 Adult Mental Health 9:30AM - 12:30PM M, W, F [facility] - [phone] Adult Mental Health 9:00AM - 12:00PM M-F [facility] Program (Similar to Journeys) 10:00AM - 1:30PM M-F Senior Renewal 10:00AM - 1:30PM M-F SS - [facility]) [phone] or [phone] (SSM does not take Cigna) Adult Mental Health (Private Insurance Only) 9:00AM - 12:30 PM M-F Adult Transitional Care (Similar to Journeys) 9:30AM - 2:00PM M-F [facility] [phone] (SSM does not take Cigna) Adult Mental Health (Private Insurance Only) 9:00AM - 12:30PM M-F Adult Transitional Care (Similar to Journeys) 9:30AM - 2:00PM M-F [facility]) [phone] (SSM does not take Cigna) Adult Mental Health (Private Insurance Only) 9:00AM - 12:30PM M-F Adult Transitional Care (Similar to Journeys) 9:30AM - 2:00PM M-F [place]) [phone] Adult Mental Health 11:30AM - 3:30PM M-F Adult DBT Group 8:30AM - 12:00PM M, , Th [facility]- [phone] (SLBMI does not take [employer]) Adult Anxiety and OCD Must choose 3 of 6 sessions, Mon-Sat 10:00AM-12:00PM, 1:00-3:00PM or 3:00-5:00PM [facility] - [phone] (SLBMI does not take [employer]) Adult Eating Disorder (6 days/week) M-Th 5:00-8:00PM, F 11:00AM-2:00PM, Sat 8:00-11:00AM Sliding Scale Resources [facility] - [phone] (New patient appointments are accepted on Mondays) Vania Angel/Warren Elida [facility] - [phone] (Centralized scheduling line) [address] - [phone] [facility] - [phone] [facility] - [phone] (Must walk-in and complete pre- registration for services.Please call to learn items needed for pre-registration) [facility] - [phone] (Must complete an application) [facility] in [facility] - [phone] (multiple locations: [facility], [place], [place], [place], [place]) Sliding Scale Counseling Resources [facility] Services - [phone] [facility] Psychoanalytic Jay - [phone] Care and Counseling - [phone] [facility] - [phone] (website: [employer]) [facility] - [phone] [facility] - [phone] or [facility] - [phone] [facility] - [phone] [facility] Counseling - [phone] [facility] - [phone] [facility] (therapist Jeremy Norman) - [phone] It is recommended that you attend AA/NA: Alcoholics Anonymous - [phone] Aastl.org Narcotics Anonymous - [phone] Na.org Chemical Dependency Treatment Resources [facility] - [phone] [facility] - [phone] [facility] [phone] [facility] - [phone] [facility] - [phone] [facility] - [phone] [facility] - [phone] or [address] near [place] For more information please contact the National Aitchbone Breaker on Alcoholism and Drug Abuse in [place] (NCADA) at [phone]. documented in this encounter Medications at Time of Discharge Medication Sig Dispensed Refills Start Date End Date omeprazole (PriLOSEC) 40 mg Capsule, Delayed Release(E.C.) Take 40 mg by mouth daily. ibuprofen (MOTRIN) 600 mg tablet Take 1 Tablet (600 mg) by mouth every 6 hours as needed for Pain, Mild. 20 Tablet None 10/30/2016 fluticasone (FLONASE) 50 mcg/spray [place], Suspension Administer 2 Sprays in each nostril [...] hours as needed for Shortness of Breath. citalopram (CeleXA) 40 mg tablet Take 1 Tablet (40 mg) by mouth daily. 30 Tablet 02/25/2017 07/08/2017 sucralfate (CARAFATE) 1 gram tablet Take 1 Gram by mouth 4 times daily before meals and at bedtime. 06/04/2017 documented as of this encounter Progress Notes * Yennifer Chambers LPC - 03/07/2017 11:23 PM CDT Per ED MD, Pt was provided sliding scale resources and IOP information. * Minal Saldaña RN - 03/07/2017 11:00 PM CDT Met with patient and Dr Reyez at bedside regarding multiple ER visits for [place]. [place], and has informed CM in the past that he does not want to see any providers in [place]. Patient reports he prefers to private pay for psychiatric services in [facility]. Patient reports hewas seeing a psychiatrist on [facility] from Oct 2016 until earlier this month, when she retired. Patient is again looking for a psychiatrist, but the earliest he can secure an appointment is March 25 with AMIRA Alvarez at [facility]. [facility]anax. Dr Reyez informed patient that he will provide one oral dose in the ER t on, but will not write any more prescriptions for Xanax. CM spoke at lengthy with patient in Oct 2016 regarding the Importance of following with an outpatient psychiatrist and PCP. Patient agreeable to see psychiatry, but has refused multiple times to establish with a PCP. CRC has made multiplePCP appointments for patient at clinics that offer psychiatry services, and patient has cancelled every appointment made without explanation. Patient requesting to speak with Nursing Geology Faculty Member before discharge, and they were notified and saw patient at bedside. Intake provided information regarding the walk-in [facility] on [place] for emergency psychiatry services. Dr Reyez updated. Minal Saldaña RN ACM-promotions manager [phone] documented in this encounter ED Notes * Peggy Maharaj RN - 03/07/2017 10:27 PM CDT Meds given per NOV. Patient/family has been informed about benefits and any potential clinically significant side effects or other concerns regarding the administration of the drug they have just been given. Pt resting on stretcher and updated on plan of care. No acute distress, equal rise and fallof chest. * Peggy Maharaj RN - 03/07/2017 9:52 PM CDT 47 y.o male to ED c/o anxiety. Pt reports an appointment with new psychiatrist in March 25 but reports he is out of Xanax at this time. Pt reports he was prescribed a small amount of xanax to relieve anxiety until appointment but that has run out. Pt calm and cooperative. Denies SI/HI. Pt A&Ox4 and able to speak in complete sentences with ease. Skin warm, dry and normal for ethnicity. * Tramaine Reyez MD - 03/07/2017 9:31 PM CDT HISTORY OF PRESENT ILLNESS Carlos Mcgee, a 47 y.o. male presents to the ED with a Chief Complaint of Anxiety Subjective History provided by: The patient and medical records Arrived by: Private vehicle Arrived from: Home Anxiety Patient is a 47-year-old male presents for benzodiazepine prescription refill. States his chronic anxiety is bothering him. He ran out of his Xanax prescription. He states that he has been trying to call psychiatrist for several months and has an appointment but not until the middle of March. DeniesSI or HI. No visual or auditory hallucinations. No somatic complaints. Of note, this is the third visit for the same complaint within the last 10 days. REVIEW OF SYSTEMS Review of Systems At least 10 systems reviewed and negative. PAST MEDICAL HISTORY REVIEWED MEDICAL: Patient [...] SOCIAL: reports that he quit smoking about 21 years ago. His smoking use included Cigarettes. [...] of breath) on his problem list. ALLERGIES Augmentin [amoxicillin-pot clavulanate]; Bactrim [sulfamethoxazole- trimethoprim]; Bystolic [nebivolol]; Carvedilol; Clindamycin; Clonidine; Contrast [iodinated contrast- oral and iv dye]; Hydralazine; Levaquin [levofloxacin]; Lidocaine; Lisinopril; Morphine; Paxil [paroxetine hcl]; Pepcid [famotidine]; Percocet [oxycodone-acetaminophen]; Sulfa (sulfonamide antibiotics); and Uroseptic ds HOME MEDICATIONS Patient's Home Medications Current Home Medications ALBUTEROL 90 MCG/ACTUATION HFA INHALER AMOXICILLIN (AMOXIL) 500 MG CAPSULE ATENOLOL (TENORMIN) 100 MG TABLET CITALOPRAM (CELEXA) 40 MG TABLET FLUTICASONE (FLONASE) 50 MCG/SPRAY SPRAY, SUSPENSION HYOSCYAMINE 0.125 MG TABLET, SUBLINGUAL IBUPROFEN (MOTRIN) 600 MG TABLET MECLIZINE (ANTIVERT) 25 MG TABLET METHYLPREDNISOLONE (MEDROL, BIJU,) 4 MG TABLETS, DOSE PACK OMEPRAZOLE (PRILOSEC) 40 MG CAPSULE, DELAYED RELEASE(E.C.) PROMETHAZINE (PHENERGAN) 25 MG TABLET RANITIDINE (ZANTAC) 150 MG TABLET SUCRALFATE (CARAFATE) 1 GRAM TABLET VERAPAMIL (CALAN) 40 MG TABLET Medications Modified during this Encounter Medications Discontinued during this Encounter Objective PHYSICAL EXAM INITIAL VS BP: (!) 155/91 (06/25/17 2136), Heart Rate: 82 bpm (03/07/172135), Resp: 16 (03/07/172135), Temp:98.1 ??F (36.7 ??C) (03/07/172135), Temp src: Oral (03/07/172135), SpO2: 97 % (03/07/172135), Height: 6' 2 (188 cm) (03/07/172135), Weight: 106.6 kg (235 lb) (03/07/172135), BMI (Calculated): 30.16 (03/07/172135) No LMP for male patient. Physical Exam Constitutional: This is a well-developed, well-nourished male lying in the bed in no acute distress. Head: Normocephalic, atraumatic. Eyes: Pupils are PERRL, EOMI. Sclera non-icteric. ENT: Oropharynx is clear. Moist mucous membranes. Neck: Supple. No meningismus. Respiratory: Good air entry bilaterally. Normal respiratory effort. No wheezes. CV: Regular rate and rhythm without murmur. GI: Soft, non-tender. Non-distended. No rebound, guarding, or rigidity. Musculoskeletal: Moves all four extremities. No acute gross deformity. Skin: Warm and dry. No rash. Neurologic: Cranial nerves II, III, IV, and VII intact and symmetric bilaterally. Sensation is intact to light touch throughout. Psychiatric: Alert and oriented x 3. Denies SI/HI. DIAGNOSTICS LAB: Labs this ED Encounter - No data to display RADIOLOGY: No orders to display PROCEDURES Procedures MEDICAL DECISION MAKING AND PLAN OF CARE MDM I have reviewed previous: notes I have reviewed nursing notes related to past medical history, social history, and review of systems and agree, unless otherwise noted. ED Course The patient is a 47-year-old male who presents requesting refill of his benzodiazepine prescription. He says he has now called 121 psychiatrists, after saying it was only 120 the other night when he was here for the same. Advised him that I will not be prescribing him any medications to go home with. He was given one dose of Xanax here, 2 mg. He requested to talk to home housekeeper, nursing supervisor lamp shades, etc. He was provided with outpatient referral resources. He was seen while here also by kash. He has been encouraged to follow up with PCP as they concerned the right chronic prescription such as these as well. Patient discharged at this time. Medications Administered During the ED Stay from 03/07/20172130 to 03/07/20172237 Date/Time Order Dose Route Action 03/07/20172222 ALPRAZolam (XANAX) tablet 2 mg 2 mg Oral Given . New Prescriptions for this Encounter LAST VS BP: (!) 150/88 (03/07/172224), Heart Rate: 80 bpm (03/07/172224), Resp: 16 (03/07/172224), Temp: 98.1 ??F (36.7 ??C) (03/07/172135), Temp src: Oral (03/07/172135), SpO2: 98 % (03/07/172224) CLINICAL IMPRESSION Final diagnoses: [Z79.899] Chronic prescription benzodiazepine use (Primary) DISPOSITION, EDUCATION AND MEDICATION RECONCILIATION Medications reconciled. See after visit summary for patient education on discharged patients. ATTESTATION STATEMENTS This note was transcribed using Next 1 Interactive computerized voice recognition without a human credit risk officer. This report may or may not have been adjusted for typographical, grammaticaland syntax errors. documented in this encounter Plan of Treatment Not on file documented as of this encounter Visit Diagnoses Diagnosis Chronic prescription benzodiazepine use- Primary documented in this encounter Administered Medications Inactive Administered Medications - up to 3 most recent administrations Medication Order MAR Action Action Date Dose Rate Site ALPRAZolam (XANAX) tablet 2 mg 2 mg, Oral, ONE TIME ONLY, 1 dose, On 03/07/17 at 2215, Routine Given 03/07/2017 10:23 PM CDT 2 mg documented in this encounter Active and Recently Administered Medications Times are shown in CDT. Scheduled Medication Order 03/05/2017 03/06/2017 03/07/2017 ALPRAZolam (XANAX) tablet 2 mg (COMPLETED) 2 mg, Oral, ONE TIME ONLY, 1 dose, On 03/07/17 at 2215, Routine 2223 (Given - Provid er: Peggy Maharaj RN) documented in this encounter
--- OUTSIDE RECORDS SUMMARY | 2024-09-10 04:20 | XMS_ITS | Encounter Summary ---
Author Organization [employer] Address [address] [place] [address] Care Team Providers Care Sign Board Erector Name Role Phone Unavailable Primary Care Provider Unavailabl e Encounter Details Date Type Department Care Team (Late st Contact Info) Description 08/04/2017 [facility] production material coordinator [address] [place] [address] Iwona Bustillos, RN Social History Tobacco Use Types Packs/Day [...] Miscellaneous Notes * Telephone Encounter - Iwona Bustillos RN - 08/04/2017 2:42 AM CST Reason for Disposition ??? Tooth becomes a darker color Protocols used: TOOTH INJURY-A- Pt encourged to follow up with ENT and to call Dentist in office in AM. ER CUTTER AND SHAPE CARVER * Telephone Encounter - Iwona Bustillos RN - 08/04/2017 2:20 AM CST Regarding: ear and tooth symptoms (denies pain) ----- Message from Angi Kim RN sent at 08/04/2017 1:57 AM RUBBER CUTTER AND SHAPE CARVER ----- Patient's address on file: [address] [place] [address] Patient's current location: Same as above ER CUTTER AND SHAPE CARVER documented in this encounter Plan of Treatment Not on file documented as of this encounter Visit Diagnoses Not on filedocumented in this encounter
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
--- OUTSIDE RECORDS SUMMARY | 2024-09-10 04:20 | XMS_ITS | Encounter Summary ---
Author Organization [facility] Address [address] [place] [address] Care Team Providers Care Surgical Coder Name Role Phone Unavailable Primary Care Provider Unavailabl e Reason for Visit * Reason Comments Anxiety pt presents to er wi th c/o anxiety and has a appointment to see psychiatrist on 09/25/16. pt ran out of medications yesterday and is looking for something to help him until the appointment. denies SI/HI. pt also reqeusting EKG due to intermittent epigastric pain and HR in the 50s. denies sob. Encounter Details Date Type Department Care Team (Late st Contact Info) Description 09/12/2016 12:24 PM PAPER SPOOLER - 09/12/2016 2:45 PM PAPER SPOOLER Emergency [facility] Emergency Department [address] [place] [address] Mesha Molina MD [address] [place] [address] Generalized anxiety disorder (Primary Dx); Upper respiratory tract infection, unspecified type Discharge Disposition: Home or Self Care Social [...] Sign Reading Time Taken Comments Blood Pressure 132/96 09/12/2016 2:30 PM PAPER SPOOLER Pulse 64 09/12/2016 2:30 PM PAPER SPOOLER Temperature 36.4 ??C (97.6 ??F) 09/12/2016 11:[address] Respiratory Rate 18 09/12/2016 2:30 PM PAPER SPOOLER Oxygen Saturation 98% 09/12/2016 2:30 PM PAPER SPOOLER Inhaled Oxygen Concentration - - Weight 111.1 kg (245 lb) 09/12/2016 10:35 AM PAPER SPOOLER Height 188 cm (6' 2 ) 09/12/2016 10:35 AM PAPER SPOOLER Body Mass Index 31.46 09/12/2016 10:35 AM PAPER SPOOLER documented in this encounter Discharge Instructions * Attachments The following attachments cannot be sent through Care Everywhere. * ANXIETY DISORDER (SRI LANKAN) * URI (UPPER RESPIRATORY INFECTION) (SRI LANKAN) * ALPRAZOLAM (SRI LANKAN) * OMEPRAZOLE (SRI LANKAN) documented in this encounter Medications at Time of Discharge Medication Sig Dispensed Refills Start Date End Date fluticasone (FLONASE) 50 mcg/spray Drummond, Suspension Administer 2 Sprays in each nostril [...] hours as needed for Shortness of Breath. omeprazole (PriLOSEC) 40 mg Capsule, Delayed Release(E.C.) Take 1 Capsule (40 mg) by mouth daily. 30 Capsule 09/12/2016 10/12/2016 ALPRAZolam (XANAX) 2 mg tablet Take 1 Tablet (2 mg) by mouth every 12 hours as needed for Anxiety. 20 Tablet 09/12/2016 09/22/2016 CITALOPRAM HYDROBROMIDE (CELEXA ORAL) Take 40 mg by mouth . 02/25/2017 sucralfate (CARAFATE) 1 gram tablet Take 1 Gram by mouth 4 times daily before meals and at bedtime. 06/04/2017 ciprofloxacin HCl (CIPRO) 500 mg tablet Take 1 Tablet (500 mg) by mouth 2 times daily. 20 Tablet None 07/17/2016 10/04/2016 acetaminophen (TYLENOL) 325 mg tablet Take 650 mg by mouth nightly as needed . 10/30/2016 documented as of this encounter ED Notes * Tracie Gibson RN - 09/12/2016 2:45 PM CST Pt given discharge and follow up instructions. No further needs or questions. R SPOOLER * Tracie Gibson RN - 09/12/2016 1:46 PM CST Pt given Xanax per NOV. Patient/family has been informed about benefits and any potential clinically significant side effects or other concerns regarding the administration of the drug they have justbeen given. R SPOOLER * Tracie Gibson RN - 09/12/2016 12:36 PM CST Pt to ED with c/o anxiety. Pt reports he has an appointment to see a psychiatrist on 09/25/16 but reports he ran out of his anxiety medication yesterday. Pt reports he feels too anxious to wait to seepsychiatrist. Pt denies SI/HI. Pt is calm and cooperative. Pt reports feeling some CP and SOB at times that feels anxiety related. Pts VSS. Pt appears in NAD. RR are even and non- labored. Skin is PWD. Family is at bedside. No further needs, will continue to monitor. R SPOOLER * Mesha Molina MD - 09/12/2016 10:21 AM CST HISTORY OF PRESENT ILLNESS Carlos Kelly, a 46 y.o. male presents to the ED with a Chief Complaint of Anxiety Subjective HPI Comments: 1:31 PM: Carlos Kelyl is a 46 y.o. male with a history of anxiety, depression, panic attacks, PTSD, diverticulitis, HTN, DM, who presents to the Emergency Department with complaintsof anxiety. Pt was here 11 days ago, received 7 days worth of Xanax, has run out, last dose was taken yesterday. Pt reports social anxiety and picking at his skin, reports that he sometimes freezes up . Denies SI, HI. Pt has upcoming appointment with psychiatrist 09/25. Pt does not have a PCP, reports he met with one one time and was told he has too many problems , and was not seen again. Pt also c/o SOB, RUSSO, sore throat, cough, nausea, lightheadedness. Physician(s): No primary care provider on file. Reports that he has been bradycardic the past several weeks, measured on an at home pulse oximeter. Denies using tobacco, drugs, alcohol. History provided by: The patient and a relative Arrived by: Private vehicle Arrived from: Home Anxiety Presenting symptoms: depression Presenting symptoms: no homicidal ideas, no suicidal thoughts, no suicidal threats and no suicide attempt Patient accompanied by: Family member Timing: Constant Progression: Unchanged Chronicity: Chronic Compliance with total regimen: out of medication. Relieved by: Anti-anxiety medications Associated symptoms: anxiety and fatigue Risk factors: hx of mental illness REVIEW OF SYSTEMS Review of Systems Constitutional: Positive for fatigue. HENT: Positive for congestion, rhinorrhea, sinus pressure and sore throat. Respiratory: Positive for shortness of breath and wheezing. Gastrointestinal: Positive for nausea. Neurological: Positive for light-headedness. Psychiatric/Behavioral: Negative for homicidal ideas and suicidal ideas. The patient is nervous/anxious. [...] Clindamycin; Clonidine; Contrast [iodinated contrast media - oral and iv dye]; Hydralazine; Levaquin [levofloxacin]; Lidocaine; Lisinopril; Morphine; Paxil [paroxetine hcl]; Pepcid [famotidine]; Percocet [oxycodone-acetaminophen]; Sulfa (sulfonamide antibiotics); and Uroseptic ds HOME MEDICATIONS Patient's Home Medications Current Home Medications ACETAMINOPHEN (TYLENOL) 325 MG TABLET ALBUTEROL 90 MCG/ACTUATION HFA INHALER ATENOLOL (TENORMIN) 100 MG TABLET CIPROFLOXACIN HCL (CIPRO) 500 MG TABLET CITALOPRAM HYDROBROMIDE (CELEXA ORAL) HYOSCYAMINE 0.125 MG TABLET, SUBLINGUAL MECLIZINE (ANTIVERT) 25 MG TABLET PROMETHAZINE (PHENERGAN) 25 MG TABLET RANITIDINE (ZANTAC) 150 MG TABLET SUCRALFATE (CARAFATE) 1 GRAM TABLET VERAPAMIL (CALAN) 40 MG TABLET Medications Modified during this Encounter Medications Discontinued during this Encounter ALPRAZOLAM (XANAX) 2 MG TABLET OMEPRAZOLE (PRILOSEC) 40 MG CAPSULE, DELAYED RELEASE(E.C.) Objective PHYSICAL EXAM INITIAL VS BP: (!) 141/91 (09/12/16 1035), Heart Rate: 62 bpm (09/12/16 1035), Resp: 16 (09/12/16 1035), Temp:98.2 ??F (36.8 ??C) (09/12/16 1035), Temp src: Oral (09/12/16 1035), SpO2: 98 % (09/12/165), Height: 6' 2 (188 cm) (09/12/161034), Weight: 111.1 kg (245 lb) (09/12/161034), BMI (Calculated): 31.44 (09/12/161034) No LMP for male patient. Physical Exam Constitutional: He is oriented to person, place, and time. He appears well- developed and well-nourished. Obese M HENT: Head: Normocephalic and atraumatic. Mouth/Throat: Oropharynx is clear and moist. Eyes: Conjunctivae and EOM are normal. Pupils are equal, round, and reactive to light. Neck: Neck supple. No JVD present. No tracheal deviation present. No thyromegaly present. Cardiovascular: Normal rate and regular rhythm. Exam reveals no gallop and no friction rub. No murmur heard. Pulses: Radial pulses are 2+ on the [...] is no rebound and no guarding. Musculoskeletal: He exhibits no edema or tenderness. Lymphadenopathy: He has no cervical adenopathy. Neurological: He is alert and oriented to person, place, and time. Skin: Skin is warm and dry. No rash noted. No erythema. Psychiatric: Depressed mood, flat affect. No SI or HI Nursing note and vitals reviewed. DIAGNOSTICS LAB: Labs this ED Encounter CBC WITH DIFFERENTIAL - Abnormal Result Value RBC 5.60 (*) HEMOGLOBIN 11.2 (*) HEMATOCRIT 37.6 (*) MCV 67.1 (*) MCH 20.0 (*) MCHC 29.8 (*) RDW 18.1 (*) MPV 9.1 (*) WBC 4.7 RDW-STDEV 42.4 PLATELETS 174 NEUTROPHILS 59 LYMPHOCYTES 31 MONOCYTES 6 EOSINOPHILS 3 BASOPHILS 1 NEUTROPHIL ABSOLUTE 2.74 LYMPHOCYTE ABSOLUTE 1.47 MONOCYTE ABSOLUTE 0.30 EOSINOPHIL ABSOLUTE 0.13 BASOPHILS ABSOLUTE 0.03 IMMATURE GRANULOCYTES 0 IMMATURE GRANULOCYTES ABSOLUTE 0.01 BASIC METABOLIC PANEL - Abnormal GLUCOSE 101 (*) SODIUM 141 POTASSIUM 3.9 CHLORIDE 102 CO2 24 CALCIUM 9.2 BUN 10 CREATININE 0.85 GFR >60 GFR, >60 ANION GAP 15 URINALYSIS WITH REFLEX CULTURE COLOR UA Yellow CLARITY UA Clear SPECIFIC GRAVITY UA 1.012 PH UA 6.0 LEUKOCYTE ESTERASE UA Negative NITRITE UA Negative PROTEIN UA Negative GLUCOSE UA Negative KETONES UA Negative UROBILINOGEN UA Normal BILIRUBIN UA Negative BLOOD UA Negative RADIOLOGY: XR CHEST PA AND LATERAL ED Interpretation Compared to 09/01/16, no acute changes, no focal infiltrate, effusion, pthx Radiologist Impression IMPRESSION: Negative chest. Location 1 EKG: NSR 62. Willow, MD, QRS, ST segments all normal. PROCEDURES Procedures MEDICAL DECISION MAKING AND PLAN OF CARE MDM Summary Statement: 46 y/o male with Anxiety disorder in the emergency room today with increased panic attacks and generalized anxiety. States that he normally takes Xanax but has been out of the medications. Last dose was taken yesterday morning. States that he has a scheduled appointment with a new psychiatrist herewith Dr. Martinez on September 25. States that his anxiety has been getting worse since being out of the Xanax. He denies any suicidal or homicidal ideations. Patient given a by mouth dose of Xanax here.Concerned that he would go and withdrawal since he has been on medication for quite some time. I told him that I will prescribe him 10 days worse in the medication to take twice daily as needed. He is not to take any more than was prescribed. Again no suicidal homicidal ideations. Was also describing having a cough, sore throat and sinus congestion. Lungs are clear. No focal infiltrate on x-ray. I think viral URI. Remains hematologically stable. Looks well for outpatient treatment. I have reviewed current: labs, ECG and imaging I have reviewed nursing notes related to past medical history, social history, and review of systems and agree, unless otherwise noted. ED Course Medications Administered During the ED Stay from 09/12/2016 1021 to 09/12/2016 1429 Date/Time Order Dose Route Action 09/12/2016 1334 ALPRAZolam (XANAX) tablet 2 mg 2 mg Oral Given . New Prescriptions for this Encounter ALPRAZOLAM (XANAX) 0.5 MG TABLET Take 4 Tablet (2 mg) by mouth every 12 hours as needed for Anxiety. OMEPRAZOLE (PRILOSEC) 40 MG CAPSULE, DELAYED RELEASE(E.C.) Take 1 Capsule (40 mg) by mouth daily. LAST VS BP: (!) 140/73 (09/12/16 1330), Heart Rate: 67 bpm (09/12/16 1233), Resp: 16 (09/12/16 1330), Temp:97.6 ??F (36.4 ??C) (09/12/16 1125), Temp src: Oral (09/12/16 1125), SpO2: 98 % (09/12/16 1330) CLINICAL IMPRESSION Final diagnoses: [F41.1] Generalized anxiety disorder (Primary) [J06.9] Upper respiratory tract infection, unspecified type DISPOSITION, EDUCATION AND MEDICATION RECONCILIATION Medications reconciled. See after visit summary for patient education on discharged patients. ATTESTATION STATEMENTS This note has been prepared by Phan Rodriguez acting as a scribe for Dr. Mesha Molina on 09/12/2016at 2:00 PM. The scribe's documentation has been prepared under my direction and personally reviewed by me, Mesha Molina MD , in its entirety on 09/12/16 at 2:29 PM. I confirm that the note above accurately reflects all work, treatment, procedures, and medical decision making performed by me. R SPOOLER documented in this encounter Plan of Treatment Not on file documented as of this encounter Procedures Procedure Name Priority Date/Time Associated Diagnosis Comments XR CHEST PA AND LATERAL 2 VW Stat 09/12/2016 1:58 PM PAPER SPOOLER URINALYSIS WITH REFLEX CULTURE Stat 09/12/2016 1:44 PM PAPER SPOOLER EKG 12-LEAD Stat 09/12/2016 1:43 PM PAPER SPOOLER CBC WITH DIFFERENTIAL Stat 09/12/2016 1:38 PM PAPER SPOOLER BASIC METABOLIC PANEL Stat 09/12/2016 1:38 PM PAPER SPOOLER documented in this encounter Results * XR CHEST PA AND LATERAL (09/12/2016 1:58 PM PAPER SPOOLER) Anatomical Region Laterality Modality Chest Computed Radiogr aphy 09/12/2016 1:58 PM PAPER SPOOLER Impressions 09/12/2016 2:06 PM PAPER SPOOLER IMPRESSION: Negative chest. Location 1 Narrative 09/12/2016 2:06 PM PAPER SPOOLER XR CHEST PA AND LATERAL DATE: 09/12/2016 1:58 PM HISTORY: Cough COMPARISON: 09/01/2016 FINDINGS: Examination of the chest in PA and lateral views fails to reveal evidence of active infiltration or consolidation in either lung and there is no effusion or pneumothorax. The heart, aorta and diaphragm, and other mediastinal structures are normal in size, shape and position. The bony structures are unremarkable. Procedure Note Vignesh Reyes MD - 09/12/2016 XR CHEST PA AND LATERAL DATE: 09/12/2016 1:58 PM HISTORY: Cough COMPARISON: 09/01/2016 FINDINGS: Examination of the chest in PA and lateral views fails to reveal evidence of active infiltration or consolidation in either lung and there is no effusion or pneumothorax. The heart, aorta and diaphragm, and other mediastinal structures are normal in size, shape and position. The bony structures are unremarkable. IMPRESSION IMPRESSION: Negative chest. Location 1 Mesha Molina MD DIAGNOSTIC IMAGING O RDERABLES * URINALYSIS WITH REFLEX CULTURE (09/12/2016 1:44 PM PAPER SPOOLER) COLOR UA Yellow Pale to Dark Yellow 09/12/2016 1:59 PM PAPER SPOOLER [facility] LABORATORY SERVICES - . [facility] CLARITY UA Clear Clear 09/12/2016 1:59 PM PAPER SPOOLER [facility] [facility] LABORATORY SERVICES - . [facility] SPECIFIC GRAVITY UA 1.012 09/12/2016 1:59 PM PAPER SPOOLER [facility] LABORATORY SERVICES - [facility] PH UA 6.0 5.0 - 8.0 09/12/2016 1:59 PM PAPER SPOOLER [facility] LABORATORY SERVICES - . [facility] LEUKOCYTE ESTERASE UA Negative Negative 09/12/2016 1:59 PM PAPER SPOOLER [facility] NITRITE UA Negative Negative 09/12/2016 1:59 PM PAPER SPOOLER [facility]ORATORY SERVICES - [facility] PROTEIN UA Negative Negative 09/12/2016 1:59 PM PAPER SPOOLER [facility] LABORATORY SERVICES - . [facility] GLUCOSE UA Negative Negative 09/12/2016 1:59 PM PAPER SPOOLER [facility] KETONES UA Negative Negative 09/12/2016 1:59 PM PAPER SPOOLER [facility] UROBILINOGEN UA Normal <2.0 mg/dL 6 1:59 PM PAPER SPOOLER [facility] BILIRUBIN UA Negative Negative 09/12/2016 1:59 PM PAPER SPOOLER [facility] BLOOD UA Negative Negative 09/12/2016 1:59 PM PAPER SPOOLER [facility] Urine URINE SPECIMEN OBTAINED BY CLEAN CATCH PROCEDURE / Unknown Collection / Unknown 09/12/2016 1:44 PM PAPER SPOOLER 09/12/2016 1:48 PM PAPER SPOOLER Mesha Molina MD URINE ORDERABLES [facility] CLIA# [id number] [address] [place] [address] * EKG 12-LEAD (09/12/2016 1:43 PM PAPER SPOOLER) 09/12/2016 1:43 PM PAPER SPOOLER Narrative INTERFACE SYSTEM - 09/14/2016 5:54 PM PAPER SPOOLER ? Stationary ECG Study ? [facility] ? Test Date: ?09/12/2016 1:43 PM Pat Name: ? VINCENT CORPUS ? Department: ?? 13 ?Room: ? 19 19 Gender: ? M ?Pin Chaser: ?? scotvm : ?1970 ? Requested By: MESHA MOLINA Thanh Order Number: [id number] ?Reading : ?? Raza Lion ? Measurements Intervals ?Willow ? Rate: ? 62 ? P: ?9 MD: ? 156 ?QRS: ?26 QRSD: ? 97 ? T: ?0 QT: ? 382 ? QTc: ?390 ? Interpretive Statements ? SINUS RHYTHM NONSPECIFIC ST ELEVATION [0.05+ mV ST ELEVATION]/EARLY REPOLARIZATION Electronically Signed On 09-14-2016 17:54:03 PAPER SPOOLER by Raza Lion Procedure Note Raza Lion MD - 11/20/2021 Stationary ECG Study [facility] Test Date: 09/12/2016 1:43 PM Pat Name: CARLOS KELLY Department: 13 Room: 19 19 Gender: M Pin Chaser: zion : 1970 Requested By: MESHA Law Order Number: [id number] Elsa MD: Raza Lion Measurements Intervals Willow Rate: 62 P: 9 MD: 156 QRS: 26 QRSD: 97 T: 0 QT: 382 QTc: 390 Interpretive Statements SINUS RHYTHM NONSPECIFIC ST ELEVATION [0.05+ mV ST ELEVATION]/EARLY REPOLARIZATION Electronically Signed On 09-14-2016 17:54:03 PAPER SPOOLER by Raza Lion Mesha Molina MD ECG ORDERABLES INTERFACE SYSTEM Refer to clinic/hospital department * (ABNORMAL) BASIC METABOLIC PANEL (09/12/2016 1:38 PM PAPER SPOOLER) SODIUM 141 136 - 145 mmol/L 09/12/2016 2:12 PM [facility] LABORATORY SERVICES - . [facility] POTASSIUM 3.9 3.5 - 5.0 mmol/L 09/12/2016 2:12 PM [facility] LABORATORY SERVICES - . [facility] CHLORIDE 102 98 - 107 mmol/L 09/12/2016 2:12 PM [facility]ORY [facility] - [facility] CO2 24 22 - 29 mmol/L 09/12/2016 2:12 PM [facility]ORY [facility] - [facility] CALCIUM 9.2 8.6 - 10.2 mg/dL 09/12/2016 2:12 PM [facility]ORY [facility] - [facility] BUN 10 6 - 20 mg/dL 09/12/2016 2:12 PM [facility] LAB[facility]ATORY SERVICES - [facility] CREATININE 0.85 0.67 - 1.17 mg/dL 09/12/2016 2:12 PM [facility]ORY [facility] - [facility] GLUCOSE 101(H) 74 - 99 mg/dL 09/12/2016 2:12 PM [facility]ORY [facility] - [facility] GFR >60 >=60 mL/min/1.7 3 sq meter 09/12/2016 2:12 PM [facility]ORY [facility] - [facility] Comment: eGFR [...] GFR, >60 >=60 mL/min/1.7 3 sq meter 09/12/2016 2:12 PM [facility] [employer] [facility] ANION GAP 15 8 - 16 mmol/L 09/12/2016 2:12 PM [facility] [employer] [facility] Blood Collection / Unknown 09/12/2016 1:38 PM PAPER SPOOLER 09/12/2016 1:43 PM PAPER SPOOLER Mesha Molina MD CHEMISTRY ORDERABLES [facility] [employer] [facility]# [id number] [address] [place] [address] * (ABNORMAL) CBC WITH DIFFERENTIAL (09/12/2016 1:38 PM PAPER SPOOLER) WBC 4.7 4.0 - 9.8 K/uL 09/12/2016 1:46 PM [facility] [employer] [facility] RBC 5.60(H) 4.50 - 5.40 M/uL 09/12/2016 1:46 PM [facility] [employer] [facility] HEMOGLOBIN 11.2(L) 13.6 - 16.5 g/dL 09/12/2016 1:46 PM [facility] [employer] [facility] HEMATOCRIT 37.6(L) 40.0 - 48.0 % 09/12/2016 1:46 PM [facility] [employer] [facility] MCV 67.1(L) 82.0 - 99.0 fL 09/12/2016 1:46 PM [facility] [employer] [facility] MCH 20.0(L) 27.2 - 32.6 pg 09/12/2016 1:46 PM PAPER SPOOLER [employer] [facility] MCHC 29.8(L) 31.5 - 35.5 g/dL 09/12/2016 1:46 PM [facility] RDW 18.1(H) 11.5 - 14.5 % 09/12/2016 1:46 PM [facility] [employer] SERVICES - [facility] RDW-STDEV 42.4 37.1 - 48.7 fL 09/12/2016 1:46 PM [facility] [employer] LABORATORY SERVICES - [facility] PLATELETS 174 140 - 350 K/uL 09/12/2016 1:46 PM [facility] [facility] - [facility] MPV 9.1(L) 9.3 - 12.4 fL 09/12/2016 1:46 PM [facility] [facility] - [facility] NEUTROPHILS 59 % 09/12/2016 1:46 PM [facility] [facility] - [facility] LYMPHOCYTES 31 % 09/12/2016 1:46 PM [facility] [facility] - [facility] MONOCYTES 6 % 09/12/2016 1:46 PM [facility] [facility] - [facility] EOSINOPHILS 3 % 09/12/2016 1:46 PM [facility] [employer] [facility] BASOPHILS 1 % 09/12/2016 1:46 PM [facility] [facility] - [facility] NEUTROPHIL ABSOLUTE 2.74 1.90 - 7.00 K/uL 09/12/2016 1:46 PM PAPER SPOOLER [facility] - [facility] LYMPHOCYTE ABSOLUTE 1.47 0.70 - 4.50 K/uL 09/12/2016 1:46 PM [facility] [employer] [facility] - [facility] MONOCYTE ABSOLUTE 0.30 0.10 - 1.30 K/uL 09/12/2016 1:46 PM [facility] [employer] [facility] EOSINOPHIL ABSOLUTE 0.13 0.00 - 0.70 K/uL 09/12/2016 1:46 PM [facility] [employer] [facility] - [facility] BASOPHILS ABSOLUTE 0.03 0.00 - 0.20 K/uL 09/12/2016 1:46 PM PAPER SPOOLER [employer] [facility] IMMATURE GRANULOCYTES 0 % 09/12/2016 1:46 PM PAPER SPOOLER [employer] [facility] IMMATURE GRANULOCYTES ABSOLUTE 0.01 0.00 - 0.03 K/uL 09/12/2016 1:46 PM [facility] [employer] - [facility] Blood Collection / Unknown 09/12/2016 1:38 PM PAPER SPOOLER 09/12/2016 1:43 PM PAPER SPOOLER Mesha Molina MD HEMATOLOGY ORDERABLE S [facility] LABORATORY SERVICES [facility]# [id number] [address] [place] [address] documented in this encounter Visit Diagnoses Diagnosis Generalized anxiety disorder- Primary Upper respiratory tract infection, unspecified type documented in this encounter Administered Medications Inactive Administered Medications - up to 3 most recent administrations Medication Order MAR Action Action Date Dose Rate Site ALPRAZolam (XANAX) tablet 2 mg 2 mg, Oral, ONE TIME ONLY, 1 dose, On 09/12/16 at 1330, Routine Given 09/12/2016 1:34 PM PAPER SPOOLER 2 mg documented in this encounter Active and Recently Administered Medications Times are shown in PAPER SPOOLER. Scheduled Medication Order 09/10/2016 09/11/2016 09/12/2016 ALPRAZolam (XANAX) tablet 2 mg (COMPLETED) 2 mg, Oral, ONE TIME ONLY, 1 dose, On 09/12/16 at 1330, Routine 1334 (Given - Provid er: Tracie Gibson RN) documented in this encounter
--- OUTSIDE RECORDS SUMMARY | 2024-09-10 04:20 | XMS_ITS | Encounter Summary ---
Author Organization [employer] Address [address] [place] [address] Care Team Providers Care Machine Straw Hat Presser Name Role Phone Unavailable Primary Care Provider Unavailabl e Reason for Visit * Reason Onset Date Comments Fatigue 10/30/2017 Encounter Details Date Type Department Care Team (Late st Contact Info) Description 11/04/2017 Nurse Triage [facility] Nurse ribbon tier [address] [place] [address] Winter Crouch RN Social History Tobacco Use Types Packs/Day [...] encounter Miscellaneous Notes * Telephone Encounter - Winter Crouch RN - 11/04/2017 6:49 PM CST Reason for Disposition ? ? [1] MODERATE weakness (i.e., interferes with work, school, normal activities) AND [2] persists > 3 days Protocols used: WEAKNESS (GENERALIZED) AND [id number] YARD CRANE OPERATOR * Patient Instructions - Winter Crouch RN - 11/04/2017 6:34 PM CST Images from the original note were not included. [employer]. Iron Deficiency Anemia: Care Instructions Your Care Instructions Anemia means that you do not have enough red blood cells. Red blood cells carry oxygen around your body. When you have anemia, it can make you pale, weak, and tired. Many things can cause anemia. The most common cause is loss of blood. This can happen if you have heavy menstrual periods. It can also happen if you have bleeding in your stomach or bowel. You can also get anemia if you don't have enough iron in your diet or if it's hard for your body toabsorb iron. In some cases, causes anemia. That's because a woman needs more iron. Your doctor may do more tests to find the cause of your anemia. If a disease or other health problem is causing it, your doctor will treat that problem. It's important to follow up with your doctor to make sure that your iron level returns to normal. Follow-up care is a jimenez part of your treatment and safety. Be sure to make and go to all appointments, and call your doctor if you are having problems. It's also a good idea to know your test resultsand keep a list of the medicines you take. How can you care for yourself at home? ?? If your doctor recommended iron pills, take them as directed. ? Try to take the pills on an empty stomach. You can do this about 1 hour before or 2 hours after meals. But you may need to take iron with food to avoid an upset stomach. ? Do not take antacids or drink milk or anything with caffeine within 2 hours of when you take youriron. They can keep your body from absorbing the iron well. ? Vitamin C helps your body absorb iron. You may want to take iron pills with a glass of orange juice or some other food high in vitamin C. ? Iron pills may cause stomach problems. These include heartburn, nausea, diarrhea, constipation, and cramps. It can help to drink plenty of fluids and include fruits, vegetables, and fiber in your diet. ? It's normal for iron pills to make your stool a greenish or grayish black. But internal bleeding can also cause dark stool. So it's important to tell your doctor about any color changes. ? Call your doctor if you think you are having a problem with your iron pills. Even after you startto feel better, it will take several months for your body to build up its supply of iron. ? If you miss a pill, don't take a double dose. ? Keep iron pills out of the reach of small children. Too much iron can be very dangerous. ?? Eat foods with a lot of iron. These include red meat, shellfish, poultry, and eggs. They also include beans, raisins, whole-grain bread, and leafy green vegetables. ?? Steam your vegetables. This is the best way to prepare them if you want to get as much iron as possible. ?? Be safe with medicines. Do not take nonsteroidal anti-inflammatory pain relievers unless your doctor tells you to. These include aspirin, naproxen (Aleve), and ibuprofen (Advil, Motrin). ?? Liquid iron can stain your teeth. But you can mix it with water or juice and drink it with a straw. Then it won't get on your teeth. When should you call for help? Call 911 anytime you think you may need emergency care. For example, call if: ? ?? You passed out (lost consciousness). ?Call your doctor now or seek immediate medical care if: ? ?? You are short of breath. ? ?? You are dizzy or light-headed, or you feel like you may faint. ? ?? You have new or worse bleeding. ?Watch closely for changes in your health, and be sure to contact your doctor if: ? ?? You feel weaker or more tired than usual. ? ?? You do not get better as expected. Where can you learn more? Go to https://[email or web address].com.net/patientEd Enter Z825 in the search box to learn more about Iron Deficiency Anemia: Care Instructions. Current as of: June 25, 2016 Content Version: 11.5 ?? [id number] [employer]. Care instructions adapted under license by your healthcare professional. If you have questions about a medical condition or this instruction, always ask your healthcare professional. These instructions may not represent the values of this healthcare organization. [employer] disclaims any warranty or liability for your use of this information. ?? YARD CRANE OPERATOR * Telephone Encounter - Winter Crouch RN - 11/04/2017 6:33 PM CST Regarding: questions about iron deficiency ----- Message from Maria Teresa Birmingham sent at 11/04/2017 6:27 PM WOODYARD CRANE OPERATOR ----- Patient's [address] on [address]: [address] [place] [address] Patient's current location: Same as above YARD CRANE OPERATOR documented in this encounter Plan of Treatment Not on file documented as of this encounter Visit Diagnoses Not on filedocumented in this encounter
--- OUTSIDE RECORDS SUMMARY | 2024-09-10 04:20 | XMS_ITS | Encounter Summary ---
Author Organization [employer] Address [address] [place] [address] Care Team Providers Care Career Developer Name Role Phone Unavailable Primary Care Provider Unavailabl e Reason for Visit * Reason Onset Date Comments Insect bite/Sting 01/17/2018 Encounter Details Date Type Department Care Team (Late st Contact Info) Description [facility] filling station laborer [address] [place] [address] Velia Covington RN Social History Tobacco Use Types Packs/Day [...] encounter Miscellaneous Notes * Telephone Encounter - Velia Covington RN - 01/17/2018 3:14 AM CDT Reason for Disposition ??? [1] Scab is present AND [2] it drains pus or increases in size Protocols used: SPIDER BITE - [facility]-A-AH * Telephone Encounter - Velia Covington RN - 01/17/2018 3:03 AM CDT Regarding: Spider bite, nauseous ----- Message from Sheryl Green sent at 01/17/2018 2:43 AM CDT ----- Patient[address] on [address]: [address] [place] [address] Patient's current location: Same as above documented in this encounter Plan of Treatment Not on file documented as of this encounter Visit Diagnoses Not on filedocumented in this encounter
--- OUTSIDE RECORDS SUMMARY | 2024-09-10 04:20 | XMS_ITS | Encounter Summary ---
Author Organization [employer] Address [address] [place] [address] Care Team Providers Care Laser Set Up Operator Name Role Phone Unavailable Primary Care Provider Unavailabl e Reason for Visit * Reason Onset Date Comments Medication Question 10/27/2017 Encounter Details Date Type Department Care Team (Late st Contact Info) Description 10/27/2017 Nurse Triage [facility] Nurse front end loader operator [address] [place] [address] Buffy Mora, RN Social History Tobacco Use Types Packs/Day [...] encounter Miscellaneous Notes * Telephone Encounter - Buffy Mora, RN - 10/27/2017 12:44 AM 4TH GRADE TEACHER Reason for Disposition ??? Caller has medication question, adult has minor symptoms, caller declines triage, and triager answers question Protocols used: MEDICATION QUESTION CALL-A- Inquiring if Augmentin and/or brennon could cause jitteriness and muscle twitching/cramping in armsand legs. Advised from [facility] [employer] [facility] and [employer], that the augmentin does have side effects such asincreased agitation and anxiety, but does not list muscle twitching/cramping as a side effect for either medication. Pt states that he saw on [facility] that muscle twitching is listed as a side effect, and states he is no longer going to take the Augmentin. Discussed half- lives of brennon and augmentin. Advised pt to increase his consumption of water and to f/u with the clinic that prescribed the medication for further assistance. 4TH GRADE TEACHER * Telephone Encounter - Buffy Mora RN - 10/27/2017 12:43 AM 4TH GRADE TEACHER Regarding: Questions about a Rx that I am taking ----- Message from Chacha Kat sent at 10/27/2017 12:11 AM 4TH GRADE TEACHER ----- Patient's address on file: [address] [place], [place] [id number] Patient's current location: 4TH GRADE TEACHER documented in this encounter Plan of Treatment Not on file documented as of this encounter Visit Diagnoses Not on filedocumented in this encounter
--- OUTSIDE RECORDS SUMMARY | 2024-09-10 04:20 | XMS_ITS | Encounter Summary ---
Author Organization [employer] Address [address] [place] [address] Care Team Providers Care Wiring Technician Name Role Phone Unavailable Primary Care Provider Unavailabl e Reason for Visit * Reason Onset Date Comments throat symptoms 12/22/2017 Encounter Details Date Type Department Care Team (Late st Contact Info) Description 12/22/2017 [facility] unified communications engineer [address] [place] [address] Regina Potts, RN Social History Tobacco Use Types Packs/Day [...] Miscellaneous Notes * Telephone Encounter - Regina Potts RN - 12/22/2017 11:14 PM CDT Reason for Disposition ? ? [1] Sore throat is the only symptom AND [2] sore throat present < 48 hours Protocols used: SORE THROAT-A- Pt is stating that his throat felt peppery. I told him watch for any other allergic reaction symptoms such as difficulty swallowing, hives, difficulty breathing. If he experienced any of these problems he needed to go in right away and be evaluated. He will for now take benedryl and watch his symptoms. * Telephone Encounter - Regina Potts RN - 12/22/2017 11:07 PM CDT Regarding: Pepper feeling in the back of his throat ----- Message from Regina Potts RN sent at 12/22/2017 11:07 PM CDT ----- Patient's [address] on file: [address] [place] [address] Patient's current location: Same as above documented in this encounter Plan of Treatment Not on file documented as of this encounter Visit Diagnoses Not on filedocumented in this encounter
--- OUTSIDE RECORDS SUMMARY | 2024-09-10 04:20 | XMS_ITS | Encounter Summary ---
Author Organization [employer] Address [address] [place] [address] Care Team Providers Care Promotions Intern Name Role Phone Unavailable Primary Care Provider Unavailabl e Reason for Visit * Reason Onset Date Comments Hand Swelling 10/24/2017 Encounter Details Date Type Department Care Team (Late st Contact Info) Description 10/24/2017 [facility] union [facility] [address] [place] [address] Lyn Hicks RN Social History Tobacco Use Types Packs/Day [...] Telephone Encounter - Lyn Hicks RN - 10/24/2017 10:36 PM BILINGUAL LEGAL ASSISTANT Reason for Disposition ??? Caller hangs up Protocols used: DIFFICULT CALLER-A- The patient is calling again about hand swelling and is not interested in full triage but wants to know what could be causing his hands to swell. Advised triager cannot diagnose over the phone but can go over his symptoms to determine when he should be seen. He states he understand he needs to be seen within 2 weeks per previous triage but he wants to know what could be causing the swelling. He became frustrated and states he will go to urgent care tomorrow. NGUAL LEGAL ASSISTANT * Telephone Encounter - Lyn Hicks RN - 10/24/2017 10:26 PM BILINGUAL LEGAL ASSISTANT Regarding: Swelling of hands,tightness in calves sx for aprox. a week ----- Message from Avelina Ward sent at 10/24/2017 9:43 PM BILINGUAL LEGAL ASSISTANT ----- Patient's [address] on [address]: [address] [place] [address] Patient's current location: Same as above NGUAL LEGAL ASSISTANT documented in this encounter Plan of Treatment Not on file documented as of this encounter Visit Diagnoses Not on filedocumented in this encounter
--- OUTSIDE RECORDS SUMMARY | 2024-09-10 04:20 | XMS_ITS | Encounter Summary ---
Author Organization [employer] Address [address] [place] [address] Care Team Providers Care Clearance Representative Name Role Phone Unavailable Primary Care Provider Unavailabl e Reason for Visit * Reason Onset Date Comments Abdominal Pain 06/02/2017 Encounter Details Date Type Department Care Team (Late st Contact Info) Description 06/02/2017 [facility] consultant dietitian [address] [place] [address] Iwona Bustillos, RN Social History [...] Telephone Encounter - Iwona Bustillos RN - 06/02/2017 4:27 AM CDT Reason for Disposition ? ? [1] MILD-MODERATE pain AND [2] constant AND [3] present > 2 hours Protocols used: ABDOMINAL PAIN - MALE-A-AH * Telephone Encounter - Iwona Bustillos RN - 06/02/2017 4:21 AM CDT Regarding: gastric problem ----- Message from Iwona Bustillos RN sent at 06/02/2017 4:21 AM CDT ----- Patient's [address] on [address] [address] [place] [address] Patient's current location: Same as above documented in this encounter Plan of Treatment Not on file documented as of this encounter Visit Diagnoses Not on filedocumented in this encounter
--- OUTSIDE RECORDS SUMMARY | 2024-09-10 04:20 | XMS_ITS | Encounter Summary ---
Author Organization [employer] Address [address] [place] [address] Care Team Providers Care Senior Mortgage Underwriter Name Role Phone Unavailable Primary Care Provider Unavailabl e Reason for Visit * Reason Onset Date Comments Information 08/04/2017 Non par without ED Sx- difficult caller Encounter Details Date Type Department Care Team (Late st Contact Info) Description 08/04/2017 Nurse Triage [facility] Nurse data security consultant [address] [place] [address] Francia Rodrigues Social History Tobacco Use Types Packs/Day Years [...] encounter Miscellaneous Notes * Telephone Encounter - Francia Rodrigues - 08/04/2017 12:48 AM CST Reason for Disposition ??? Caller hangs up Protocols used: DIFFICULT CALLER-A- Caller worst sx does not fall within ED sx. Pt has a PCP and PCP's office. Advised pt to contact his PCP's office as he stated in the call he was just seen by. Other options given was to be seen in the ED or at an for his sx. Caller was very angry and argumentative and hung up. K TURNER * Telephone Encounter - Francia Rodrigues - 08/04/2017 12:46 AM CST Regarding: sleeping alot (non par without ED) ----- Message from Francia Rodrigues sent at 08/04/2017 12:46 AM SHANK TURNER ----- Patient's [address] on [address]: [address] [place] [address] Patient's current location: Same as above K TURNER documented in this encounter Plan of Treatment Not on file documented as of this encounter Visit Diagnoses Not on filedocumented in this encounter
--- OUTSIDE RECORDS SUMMARY | 2024-09-10 04:20 | XMS_ITS | Encounter Summary ---
[facility] Organization [facility] Address [address] [place] [address] Care Team Providers Care Director Of Retail Analytics Name Role Phone Unavailable Primary Care Provider Unavailabl e Reason for Visit * Reason Comments Multiple Medical Problems Lj comes in today complaining of incresed anxiety, feeling shakey, lightheaded, having pain with urination, and pain to the left testicle. Lj states that this has been going on for the last week. Lj denies any chest pain or shortness of breth. Lj has nausea, but has not vomited. Lj denies any SI or HI at this time. Patient states that he has seen at an OSH but wont say where. * Auth/Cert Specialty Diagnoses / Procedures Referred By Redd mobley Referred To Contact Emergency Medicine [facility] Emergency Dept [address] [place] [address] Referral ID Status Reason Start Date Expiration Date Visits Re quested Visits Authorized [id number] 1 1 Encounter Details Date Type Department Care Team (Late st Contact Info) Description 07/07/2017 9:56 PM CDT - 07/08/2017 12:58 AM CDT Emergency [facility] Emergency Department [address] [place] [address] Courtney Gomez MD NO ADDRESS ON FILE Anxiety disorder, unspecified type (Primary Dx); Moderate episode of recurrent major depressive disorder Discharge Disposition: Home or Self Care Social [...] Sign Reading Time Taken Comments Blood Pressure 153/94 07/08/2017 12:30 AM CDT Pulse 62 07/08/2017 12:30 AM CDT Temperature 36.3 ??C (97.4 ??F) 07/07/2017 9:51 PM CD T Respiratory Rate 18 07/07/2017 11:45 PM CDT Oxygen Saturation 95% 07/08/2017 12:30 AM CDT Inhaled Oxygen Concentration - - Weight 108 kg (238 lb) 07/07/2017 9:51 PM CDT Height 188 cm (6' 2 ) 07/07/2017 9:51 PM CDT Body Mass Index 30.56 07/07/2017 9:51 PM CDT documented in this encounter Discharge Instructions * Discharge Instructions* Courtney Gomez MD - 07/08/2017 12:39 AM CDT You must keep your appt with Dr Martinez . The ER will not provide further psychiatric medications. documented in this encounter Medications at Time of Discharge Medication Sig Dispensed Refills Start Date End Date omeprazole (PriLOSEC) 40 mg Capsule, Delayed Release(E.C.) Take 40 mg by mouth daily. ibuprofen (MOTRIN) 600 mg tablet Take 1 Tablet (600 mg) by mouth every 6 hours as needed for Pain, Mild. 20 Tablet None 10/30/2016 fluticasone (FLONASE) 50 mcg/spray [place], Suspension Administer 2 Sprays in each nostril [...] as of this encounter ED Notes * Paty Quigley RN - 07/08/2017 12:00 AM CDT Pt provided with ice water. * Paty Quigley RN - 07/07/2017 10:12 PM CDT Pt arrives to ED d/t Multiple Medical Problems that have been ongoing for one week. +nausea Pt reports increase in anxiety, feeling shakey, lightheaded, pain with urination. Pt reports being out of anxiety medication but is seeing Juan RUSSELL next for refill. Pt is currently being treated for UTI with cipro but symptoms are not subsiding. Pt states, I just haven't felt like myself. Im not having thought of hurting myself but I am depressed. Im not going to lie. I have a lot going on. Pt reports being homeless and with no family. Im supposed to have this surgery to get this mass removed but I have no where to go after I leave. Pt denies CP, SOB, v/d. Placed on pulse ox and BP monitor. Friend at bedside. Patient is resting on stretcher. No acute distress noted. Respirations even and unlabored. Pt is alert and oriented. Skin pink, warm, and dry. Pt has no requests at this time. * Courtney Gomez MD - 07/07/2017 9:38 PM CDT HISTORY OF PRESENT ILLNESS Carlos Mcgee, a 47 y.o. male presents to the ED with a Chief Complaint of Multiple Medical Problems Subjective 11:00 PM: Carlos Mcgee is a 47 y.o. male with a history of PTSD, DM, anxiety, depression, who presents to the Emergency Department with multiple complaints. Pt states he has had dysuria and urinary frequency x 1 week. States he has been taking Cipro without relief of his sx. Also admits to someassociated left testicular pain. Pt also states he has been anxious and depressed. States he is homeless and had a recent colonoscopy at [facility] where he was found to have a mass. He has follow up there with GI. Pt states this has caused him increased anxiety and states he is out of his medications. States he has been on benzodiazepines for several years and is concerned for withdrawal. He has been jittery and experienced chills. Denies SI/HI. He does not have a psychiatrist that he currently sees but states he hasan appointment with Dr. Juan Abbott in one week. Physician(s): No primary care provider on file. History provided by: The patient Arrived by: Private vehicle REVIEW OF SYSTEMS Review of Systems Constitutional: Positive for chills. Negative for activity change, appetite change, diaphoresis andfever. HENT: Negative for congestion, facial swelling and nosebleeds. Respiratory: Negative for chest tightness, shortness of breath and wheezing. Cardiovascular: Negative for chest pain, palpitations and leg swelling. Gastrointestinal: Negative for abdominal distention and abdominal pain. Genitourinary: Positive for dysuria, frequency and testicular pain. Negative for difficulty urinating and flank pain. Musculoskeletal: Negative for back pain, myalgias and neck pain. Skin: Negative for rash. Neurological: Negative for dizziness, seizures, syncope and headaches. Psychiatric/Behavioral: Positive for dysphoric mood. Negative for hallucinations, sleep disturbanceand suicidal ideas. The patient is nervous/anxious. No homicidal ideation All other systems reviewed and are negative. [...] HOME MEDICATIONS Discharge Medication List as of 07/08/2017 12:39 AM START taking these medications Details ALPRAZolam (XANAX) 2 mg tablet Take 1 Tablet (2 mg) by mouth every 12 hours as needed for Anxiety.,Disp-14 Tablet, R-0 CONTINUE these medications which have CHANGED Details citalopram (CeleXA) 40 mg tablet Take 1 Tablet (40 mg) by mouth daily., Disp-30 Tablet, R-0 CONTINUE these medications which have NOT CHANGED Details HYDROcodone-acetaminophen (NORCO) 5-325 mg tablet Take 1 Tablet by mouth every 4 hours as needed for Pain, Moderate. sucralfate (CARAFATE) 1 gram tablet Take 1 Tablet (1 Gram) by mouth 4 times daily before meals and at bedtime., Disp-21 Tablet, R-none omeprazole (PriLOSEC) 40 mg Capsule, Delayed Release(E.C.) [...] Disp-21 Capsule, R-None fluticasone (FLONASE) 50 mcg/spray [place], Suspension Administer 2 Sprays in each nostril [...] Breath. Objective PHYSICAL EXAM INITIAL VS BP: 104/89 (07/07/172150), Heart Rate: 92 bpm (07/07/172150), Resp: 16 (07/07/172150), Temp: 97.4 ??F (36.3 ??C) (07/07/172150), Temp src: Oral (07/07/172150), SpO2: 96 % (07/07/172150), Height: 6' 2 (188 cm) (07/07/172150), Weight: 108 kg (238 lb) (07/07/172150), BMI (Calculated): 30.54 (1 2150) No LMP for male patient. Physical Exam Constitutional: He is oriented to person, place, and time. He appears well- developed and well-nourished. No distress. HENT: Head: Normocephalic and atraumatic. Mouth/Throat: Oropharynx is clear and moist. Eyes: EOM are normal. Pupils are equal, round, and reactive to light. Neck: Normal range of motion. Neck supple. No thyromegaly present. Cardiovascular: Normal rate, regular [...] motion. He exhibits no edema or tenderness. Lymphadenopathy: He has no cervical adenopathy. Neurological: He is alert and oriented to person, place, and time. No cranial nerve deficit. Coordination normal. Skin: Skin is warm and dry. No rash noted. No erythema. Psychiatric: His behavior is normal. He exhibits a depressed mood. Appears depressed. Flat affect. Nursing note and vitals reviewed. DIAGNOSTICS LAB: Labs this ED Encounter CBC WITH DIFFERENTIAL - Abnormal Result Value RBC 6.16 (*) HEMOGLOBIN 12.6 (*) MCV 68.5 (*) MCH 20.5 (*) MCHC 29.9 (*) RDW 18.3 (*) MPV 9.1 (*) WBC 6.1 HEMATOCRIT 42.2 RDW-STDEV 42.8 PLATELETS 246 NEUTROPHILS 68 LYMPHOCYTES 24 MONOCYTES 5 EOSINOPHILS 2 BASOPHILS 1 IMMATURE GRANULOCYTES 0 NEUTROPHIL ABSOLUTE 4.14 LYMPHOCYTE ABSOLUTE 1.47 MONOCYTE ABSOLUTE 0.30 EOSINOPHIL ABSOLUTE 0.10 BASOPHILS ABSOLUTE 0.04 IMMATURE GRANULOCYTES ABSOLUTE 0.01 COMPREHENSIVE METABOLIC PANEL - Abnormal GLUCOSE 100 (*) SODIUM 139 POTASSIUM 3.8 CHLORIDE 100 CO2 28 CALCIUM 9.4 BUN 10 CREATININE 1.06 TOTAL PROTEIN 8.3 ALBUMIN 4.8 BILIRUBIN TOTAL 1.2 ALKALINE PHOSPHATASE 56 AST 21 ALT 15 GFR >60 GFR, >60 ANION GAP 11 Narrative: Samples containing indocyanine green cause interferences on Total and/or Direct Bilirubin and must not be measured. URINALYSIS WITH REFLEX CULTURE - Normal COLOR UA Yellow CLARITY UA Clear SPECIFIC GRAVITY UA 1.011 PH UA 6.0 LEUKOCYTE ESTERASE UA Negative NITRITE UA Negative PROTEIN UA Negative GLUCOSE UA Negative KETONES UA Negative UROBILINOGEN UA Normal BILIRUBIN UA Negative BLOOD UA Negative RADIOLOGY: No orders to display EKG: PROCEDURES Procedures MEDICAL DECISION MAKING AND PLAN OF CARE ED Course 11:21 PM: [facility] Prescription Drug Monitoring Program database shows pt's last Rx for Xanax was 05/25, 21 pills. 12:41 AM: Updated pt on their lab results. Patient will be discharged home with Rx for Xanax. Recommended follow up with psychiatry. RTER with worsening sx. Pt understands and agrees with the plan. All questions and concerns addressed. The patient is stable for discharge. ED provider and ED nurse verbally discussed patient plan of care at this time. MDM Summary Statement: 47-year-old male presents for evaluation with multiple complaints. He has no evidence of acute infection and laboratory studies are unremarkable. He Is out of antidepressants and anxiety medications.Reviewed [employer] database and last xanax was prescribed ( 21 tabs) He is scheduled to see the psychiatrist in one week and I have given him Medication to prevent acute withdrawal until that time but advised we would not provide furhter medication thru ER . Diagnostic Considerations: Infection/ withdrawal/ electrolyte change / drug seeking I have reviewed previous: notes and labs I have reviewed current: labs I have reviewed nursing notes related to past medical history, social history, and review of systems and agree, unless otherwise noted. Discharge Medication List as of 07/08/2017 12:39 AM START taking these medications Details ALPRAZolam (XANAX) 2 mg tablet Take 1 Tablet (2 mg) by mouth every 12 hours as needed for Anxiety.,Disp-14 Tablet, R-0 CONTINUE these medications which have CHANGED Details citalopram (CeleXA) 40 mg tablet Take 1 Tablet (40 mg) by mouth daily., Disp-30 Tablet, R-0 CONTINUE these medications which have NOT CHANGED Details HYDROcodone-acetaminophen (NORCO) 5-325 mg tablet Take 1 Tablet by mouth every 4 hours as needed for Pain, Moderate. sucralfate (CARAFATE) 1 gram tablet Take 1 Tablet (1 Gram) by mouth 4 times daily before meals and at bedtime., Disp-21 Tablet, R-none omeprazole (PriLOSEC) 40 mg Capsule, Delayed Release(E.C.) [...] Disp-21 Capsule, R-None fluticasone (FLONASE) 50 mcg/spray [place], Suspension Administer 2 Sprays in each nostril [...] Shortness of Breath. LAST VS BP: (!) 153/94 (07/08/1729), Heart Rate: 70 bpm (07/07/17 2246), Resp: 18 (07/07/17 2345), Temp:97.4 ??F (36.3 ??C) (07/07/172150), Temp src: Oral (07/07/172150), SpO2: 95 % (07/08/1729) CLINICAL IMPRESSION Final diagnoses: [F41.9] Anxiety disorder, unspecified type (Primary) [F33.1] Moderate episode of recurrent major depressive disorder DISPOSITION, EDUCATION AND MEDICATION RECONCILIATION Medications reconciled. See after visit summary for patient education on discharged patients. ED Disposition ED Disposition Condition User Date/Time Comment Discharge Stable Courtney Gomez MD [facility] Jul 08, 2017 12:28 AM Follow up: Rizwan Ortiz MD [address] [facility] [address] keep your appt as scheduled DISCHARGED HOME IN STABLE CONDITION. ATTESTATION STATEMENTS This note has been prepared by Courtney Gomez MD acting as a scribe for Dr. Courtney Gomez on 07/07/2017 at 12:41 AM. The scribe's documentation has been prepared under my direction and personally reviewed by me.be in its entirety on 07/08/17 at 5:04 AM. I confirm that the note above accurately reflects all work,treatment, procedures, and medical decision making performed by me. documented in this encounter Plan of Treatment Not on file documented as of this encounter Procedures Procedure Name Priority Date/Time Associated Diagnosis Comments URINALYSIS WITH REFLEX CULTURE Stat 07/07/2017 11:38 PM CDT CBC WITH DIFFERENTIAL Stat 07/07/2017 11:38 PM CDT COMPREHENSIVE METABOLIC PANEL Stat 07/07/2017 11:38 PM CDT documented in this encounter Results * URINALYSIS WITH REFLEX CULTURE (07/07/2017 11:38 PM CDT) COLOR UA Yellow Pale to Dark Yellow 07/08/2017 12:08 AM CDT [facility] CLARITY UA Clear Clear 07/08/2017 12:08 AM CDT [facility] SPECIFIC GRAVITY UA 1.011 1.003 - 1.035 07/08/2017 12:08 AM CDT [facility] PH UA 6.0 5.0 - 8.0 07/08/2017 12:08 AM CDT [facility] LEUKOCYTE ESTERASE UA Negative Negative 07/08/2017 12:08 AM CDT [facility] NITRITE UA Negative Negative 07/08/2017 12:08 AM CDT [facility] PROTEIN UA Negative Negative 07/08/2017 12:08 AM CDT [facility] GLUCOSE UA Negative Negative 07/08/2017 12:08 AM CDT [facility] KETONES UA Negative Negative 07/08/2017 12:08 AM CDT [facility] UROBILINOGEN UA Normal <2.0 mg/dL 7 12:08 AM T [facility] BILIRUBIN UA Negative Negative 07/08/2017 12:08 AM [facility] BLOOD UA Negative Negative 07/08/2017 12:08 AM [facility] Urine URINE SPECIMEN OBTAINED BY CLEAN CATCH PROCEDURE / Unknown Collection / Unknown 07/07/2017 11:38 PM CDT 07/07/2017 11:56 PM CDT Courtney Gomez MD URINE ORDERABLES [facility] CLTN# [id number] [address] [facility] [place] [address] * (ABNORMAL) COMPREHENSIVE METABOLIC PANEL (07/07/2017 11:38 PM CDT) SODIUM 139 136 - 145 mmol/L 07/08/2017 12:23 AM [facility] POTASSIUM 3.8 3.5 - 5.0 mmol/L 07/08/2017 12:23 AM [facility] CHLORIDE 100 98 - 107 mmol/L 07/08/2017 12:23 AM [facility] CO2 28 22 - 29 mmol/L 07/08/2017 12:23 AM [facility] CALCIUM 9.4 8.6 - 10.2 mg/dL 07/08/2017 12:23 AM T [facility] BUN 10 6 - 20 mg/dL 07/08/2017 12:23 AM [facility] CREATININE 1.06 0.67 - 1.17 mg/dL 07/08/2017 12:23 AM [facility] GLUCOSE 100(H) 74 - 99 mg/dL 07/08/2017 12:23 AM [facility] TOTAL PROTEIN 8.3 6.7 - 8.6 g/dL 07/08/2017 12:23 AM [facility] [employer] [facility] ALBUMIN 4.8 3.5 - 5.2 g/dL 07/08/2017 12:23 AM [facility] BILIRUBIN TOTAL 1.2 0.3 - 1.2 mg/dL 07/08/2017 12:23 AM [facility] ALKALINE PHOSPHATASE 56 40 - 129 U/L 07/08/2017 12:23 AM [facility] AST 21 <41 U/L 07/08/2017 12:23 AM [facility] ALT 15 <42 U/L 07/08/2017 12:23 AM [facility] GFR >60 >=60 mL/min/1.7 3 sq meter 07/08/2017 12:23 AM [facility] Comment: eGFR has not been validated [...] GFR, >60 >=60 mL/min/1.7 3 sq meter 07/08/2017 12:23 AM [facility] [employer] [facility] ANION GAP 11 8 - 16 mmol/L 07/08/2017 12:23 AM [facility] Blood Venipuncture / Unknown 07/07/2017 11:38 PM CDT 07/07/2017 11:[address] [facility] - 07/08/2017 12:23 AM [facility] Samples containing indocyanine green cause interferences on Total and/or Direct Bilirubin and must not be measured. Courtney Gomez MD CHEMISTRY ORDERABLES [facility] [employer] [id number] 4 [facility] [place] [address] * (ABNORMAL) CBC WITH DIFFERENTIAL (07/07/2017 11:38 PM CDT) [facility] WBC 6.1 4.0 - 9.8 K/uL 07/08/2017 12:14 AM CDT [facility] RBC 6.16(H) 4.50 - 5.40 M/uL 07/08/2017 12:14 AM CDT [facility] HEMOGLOBIN 12.6(L) 13.6 - 16.5 g/dL 07/08/2017 12:14 AM CDT [facility] HEMATOCRIT 42.2 40.0 - 48.0 % 07/08/2017 12:14 AM CDT [facility] MCV 68.5(L) 82.0 - 99.0 fL 07/08/2017 12:14 AM CDT [facility] MCH 20.5(L) 27.2 - 32.6 pg 07/08/2017 12:14 AM CDT [facility] MCHC 29.9(L) 31.5 - 35.5 g/dL 07/08/2017 12:14 AM CDT [facility] RDW 18.3(H) 11.5 - 14.5 % 07/08/2017 12:14 AM CDT [facility] RDW-STDEV 42.8 37.1 - 48.7 fL 07/08/2017 12:14 AM CDT [facility] PLATELETS 246 140 - 350 K/uL 07/08/2017 12:14 AM CDT [facility] MPV 9.1(L) 9.3 - 12.4 fL 07/08/2017 12:14 AM CDT [facility] NEUTROPHILS 68 % 07/08/2017 12:14 AM CDT [facility] LYMPHOCYTES 24 % 07/08/2017 12:14 AM CDT [facility] MONOCYTES 5 % 07/08/2017 12:14 AM CDT [facility] EOSINOPHILS 2 % 07/08/2017 12:14 AM CDT [facility] BASOPHILS 1 % 07/08/2017 12:14 AM CDT [facility] IMMATURE GRANULOCYTES 0 % 07/08/2017 12:14 AM CDT [facility] NEUTROPHIL ABSOLUTE 4.14 1.90 - 7.00 K/uL 07/08/2017 12:14 AM CDT [facility] LYMPHOCYTE ABSOLUTE 1.47 0.70 - 4.50 K/uL 07/08/2017 12:14 AM CDT [facility] MONOCYTE ABSOLUTE 0.30 0.10 - 1.30 K/uL 07/08/2017 12:14 AM CDT [facility] EOSINOPHIL ABSOLUTE 0.10 0.00 - 0.70 K/uL 07/08/2017 12:14 AM CDT [facility] BASOPHILS ABSOLUTE 0.04 0.00 - 0.20 K/uL 07/08/2017 12:14 AM CDT [facility] IMMATURE GRANULOCYTES ABSOLUTE 0.01 0.00 - 0.03 K/uL 07/08/2017 12:14 AM CDT [facility] Blood Venipuncture / Unknown 07/07/2017 11:38 PM CDT 07/07/2017 11:56 PM CDT Courtney Gomez MD HEMATOLOGY ORDERABLE S [facility]# [id number] [address] [place] [address] documented in this encounter Visit Diagnoses Diagnosis Anxiety disorder, unspecified type- Primary Moderate episode of recurrent major depressive disorder documented in this encounter
--- OUTSIDE RECORDS SUMMARY | 2024-09-10 04:20 | XMS_ITS | Encounter Summary ---
Author Organization [employer] Address [address] [place] [address] Care Team Providers Care Cabin Equipment Supervisor Name Role Phone Unavailable Primary Care Provider Unavailabl e Reason for Visit * Reason Onset Date Comments Chest Pain (Angina) 06/11/2018 Encounter Details Date Type Department Care Team (Late st Contact Info) Description 06/11/2018 Nurse Triage [facility] Nurse distribution system operator [address] [place] [address] Carolee Martinez RN Social History Tobacco Use Types Packs/Day [...] encounter Miscellaneous Notes * Telephone Encounter - Carolee Martinez RN - 06/11/2018 11:41 PM CDT Reason for Disposition ? ? [1] Chest pain lasts > 5 minutes AND [2] age > 30 AND [3] at least one cardiac risk factor (i.e., hypertension, diabetes, obesity, smoker or strong family history of heart disease) Protocols used: CHEST PAIN-A-AH Pt refused 911 disposition and states that he will wait and see how he is feeling. No further questions at this time. Will call back if additional assistance is needed. * Telephone Encounter - Carolee Martinez RN - 06/11/2018 11:27 PM CDT Regarding: RUSSO ----- Message from Joan Wylie sent at 06/11/2018 11:20 PM CDT ----- Patient's [address] [address] [place] [id number] Patient's current location: Same as above documented in this encounter Plan of Treatment Not on file documented as of this encounter Visit Diagnoses Not on filedocumented in this encounter
--- OUTSIDE RECORDS SUMMARY | 2024-09-10 04:20 | XMS_ITS | Encounter Summary ---
Author Organization [employer] Address [address] [place] [address] Care Team Providers Care Food Management Aide Name Role Phone Unavailable Primary Care Provider Unavailabl e Encounter Details Date Type Department Care Team (Late st Contact Info) Description 02/27/2018 [facility] office assistant receptionist [address] [place] [address] Parris Hylton RN Social History [...] Telephone Encounter - Parris Hylton RN - 02/27/2018 2:08 AM CDT Reason for Disposition ??? Message left on identifiable voice mail? [1] MODERATE pain (e.g., interferes with normal activities) AND [2] comes and goes (cramps) AND[3] present > 24 hours (Exception: pain with Vomiting or Diarrhea - see that Guideline) Protocols used: DENZEL NOC P ANSWERING SERVICE, ABDOMINAL PAIN - UPPER-A-AH * Telephone Encounter - Parris Hylton RN - 02/27/2018 2:04 AM CDT Regarding: Acid reflux ----- Message from Sheryl Green sent at 02/27/2018 2:04 AM CDT ----- Patient's [address] on [address]: [address] [place] [id number] Patient's current location: Same as above documented in this encounter Plan of Treatment Not on file documented as of this encounter Visit Diagnoses Not on filedocumented in this encounter
--- OUTSIDE RECORDS SUMMARY | 2024-09-10 04:20 | XMS_ITS | Encounter Summary ---
Author Organization [facility] Address [address] [place] [address] Care Team Providers Care Comfort Station Attendant Name Role Phone Unavailable Primary Care Provider Unavailabl e Reason for Visit * Reason Comments Withdrawal PT arrived to the c/o withdrawl for xanax . PT sts I have been having panic attacks. PT sts on wednesday he called [facility] p[facility]y MDs. Pt denies any SI / HI Encounter Details Date Type Department Care Team (Late st Contact Info) Description 10/17/2016 5:58 PM BOREMATIC MACHINE OPERATOR - 10/17/2016 8:15 PM BOREMATIC MACHINE OPERATOR Emergency [facility] Emergency Department [address] [place] [id number] Dave Jacob MD NO ADDRESS ON FILE Anxiety (Primary Dx) Discharge Disposition: Home or Self [...] Sign Reading Time Taken Comments Blood Pressure 137/90 10/17/2016 8:11 PM BOREMATIC MACHINE OPERATOR Pulse - - Temperature 36.4 ??C (97.6 ??F) 10/17/2016 5:46 PM CS T Respiratory Rate 12 10/17/2016 8:11 PM BOREMATIC MACHINE OPERATOR Oxygen Saturation 100% 10/17/2016 8:11 PM BOREMATIC MACHINE OPERATOR Inhaled Oxygen Concentration - - Weight 111.1 kg (245 lb) 10/17/2016 5:46 PM BOREMATIC MACHINE OPERATOR Height 188 cm (6' 2 ) 10/17/2016 5:46 PM BOREMATIC MACHINE OPERATOR Body Mass Index 31.46 10/17/2016 5:46 PM BOREMATIC MACHINE OPERATOR documented in this encounter Discharge Instructions * Discharge Instructions* Dave Jacob MD - 10/17/2016 7:57 PM BOREMATIC MACHINE OPERATOR Follow up with the referral line for a primary doctor. Follow up in the ER with worsening sympotms.WE CANNOT CONTINUE TO ACT YOUR PRIMARY DOCTOR REFILLING YOUR MEDICATIONS. MATIC MACHINE OPERATOR * Attachments The following attachments cannot be sent through Care Everywhere. * ANXIETY DISORDER (PALAUAN) * ANXIETY DISORDERS: GENERAL INFO (PALAUAN) documented in this encounter Medications at Time of Discharge Medication Sig Dispensed Refills Start Date End Date fluticasone (FLONASE) 50 mcg/spray [place], Suspension Administer 2 Sprays in each nostril [...] daily as needed for Anxiety. 21 Tablet 10/17/2016 02/25/2017 CITALOPRAM HYDROBROMIDE (CELEXA ORAL) Take 40 mg by mouth . 02/25/2017 sucralfate (CARAFATE) 1 gram tablet Take 1 Gram by mouth 4 times daily before meals and at bedtime. 06/04/2017 acetaminophen (TYLENOL) 325 mg tablet Take 650 mg by mouth nightly as needed . 10/30/2016 documented as of this encounter Progress Notes * Minal Saldaña RN - 10/17/2016 7:01 PM CST Met with patient at bedside regarding needing follow up with psychiatry for routine prescription refills. Has [place] [facility] and does not want to go to clinics in [place], so he has to private pay for appointments. Tammy VILLANUEVA has made several PCP appointments at various clinics in [place], and patient has cancelled every one she has made without explanation. Patient reports he has a new patient appointment with a psychiatrist on [place] [facility] on Oct 29 and understands the importance of following with outpatient providers for prescription medication refills. Also reports he thinks he would benefit from having a psychologist and plans to follow up with psychology as well. Patient educated in emergency department on appropriate ED usage. Provided ED IS FOR EMERGENCIES letter and resources for alternative care. Patient has not been referred to [facility] for PCP follow up. Has [facility], no PCP. Patient has cancelled every appointment made by [facility], and [facility] reports she will not make any more appointments for patient. Clinic brochure given. CM contact information provided for further assistance if needed. Minal Saldaña RN ACM-humanities coordinator [phone] MATIC MACHINE OPERATOR documented in this encounter ED Notes * Vianey Celestin RN - 10/17/2016 8:11 PM CST D/C paperwork reviewed and all questions answered. Pt in NAD at this time and ambulatory to triage with steady gait. MATIC MACHINE OPERATOR * Vianey Celestin RN - 10/17/2016 7:26 PM CST Pt updated on POC and all questions answered. MATIC MACHINE OPERATOR * Edin Subramanian PCA - 10/17/2016 6:16 PM CST Patient changed in the blue scrubs by LIAM Diaz. Patient belongings placed in 2 white belongings bags, labeled with patient information, and placed in [employer] [facility] [address]. Patient belongings include:Sweatshirt, T-shirt, Jeans, Belt, Shoes, Pulse Ox, Wallet, Phone, Necklace. Security contacted for valuable belongings? No. Safety precautions initiated at this time, including back door locked in patient???s room, garage door closed, and all non-essential equipment removed from room. MATIC MACHINE OPERATOR * Vianey Celestin RN - 10/17/2016 6:12 PM CST This RN agrees with the triage note. PT arrived to the with c/o withdrawl for xanax . PT sts I have been having panic attacks. PT sts on wednesday he called [facility] p[facility]y [facility]s. Pt denies any SI / HI Pt stating has been stressed.Pt states he is withdrawing and has been very stressed. Pt states he ran out of his xanax, but states he has still been taking his celexa. Pt states his last dose of xanax was yesterday. Pt states he's been dizziness, disorientation, sweating more than normal and stateshis heart has been racing. Pt states he's been having periods where he feels like he can't breathe.Pt denies illicit drugs and alcohol. Pt denies SI/HI. Pt states he's been under increased stressed r/t family. Pt states, When my dad , my son past away. I don't speak to my other family. Pt denies increased depression, but states his main complaint is increased anxiety. MATIC MACHINE OPERATOR * Ignacia Durand RN - 10/17/2016 5:39 PM CST Pt called to be triaged, pt states needs to go outside for air, pt aware awaiting triage. NAD noted MATIC MACHINE OPERATOR * Dave Jacob MD - 10/17/2016 5:37 PM CST HISTORY OF PRESENT ILLNESS Carlos Mcgee, a 46 y.o. male presents to the ED with a Chief Complaint of Withdrawal Subjective HPI Comments: 6:22 PM: Carlos Mcgee is a 46 y.o. male with a history of anxiety, panic attacks,and PTSD, who presents to the Emergency Department with complaints of withdrawal from Xanax. He wastaking 2mg Xanax twice daily. However, he has not been able to see a psychiatrist for a refill of his xanax. He does however have an appointment with a new psychiatrist in 16 days. Patient now reports skin crawling, shortness of breath, and diaphoresis s/t withdrawal. He denies any SI or HI at thistime. On chart review, the patient filled Xanax prescription on 09/01/2016, 09/12/16, and again on 10/05/2016. Physician(s): No primary care provider on file. History provided by: The patient Arrived by: Private vehicle Arrived from: Home Withdrawal Similar prior episodes: no Severity: Mild Onset quality: Gradual Timing: Constant Progression: Worsening Chronicity: Recurrent Suspected agents: Barbiturates Associated symptoms: shortness of breath Associated symptoms: no suicidal ideation REVIEW OF SYSTEMS Review of Systems Constitutional: Positive for diaphoresis. Negative for activity change and appetite change. +'skin crawling' sensation HENT: Negative. Respiratory: Positive for shortness of breath. Negative for chest tightness. Cardiovascular: Negative. Negative for chest pain. Gastrointestinal: Negative. Genitourinary: Negative. Musculoskeletal: Negative. Negative for back pain. Psychiatric/Behavioral: Negative for suicidal ideas. The patient is not nervous/anxious. PAST MEDICAL HISTORY REVIEWED MEDICAL: Patient [...] MG TABLET ALBUTEROL 90 MCG/ACTUATION HFA INHALER AMOXICILLIN (AMOXIL) 500 MG CAPSULE ATENOLOL (TENORMIN) 100 MG TABLET CITALOPRAM HYDROBROMIDE (CELEXA ORAL) FLUTICASONE (FLONASE) 50 MCG/SPRAY SPRAY, SUSPENSION HYOSCYAMINE 0.125 MG TABLET, SUBLINGUAL MECLIZINE (ANTIVERT) 25 MG TABLET PROMETHAZINE (PHENERGAN) 25 MG TABLET RANITIDINE (ZANTAC) 150 MG TABLET SUCRALFATE (CARAFATE) 1 GRAM TABLET VERAPAMIL (CALAN) 40 MG TABLET Medications Modified during this Encounter Modified Medication Previous Medication ALPRAZOLAM (XANAX) 2 MG TABLET ALPRAZolam (XANAX) 2 mg tablet Take 1 Tablet (2 mg) by mouth 3 times daily as needed for Anxiety. Take 1 Tablet (2 mg) by mouth 3 times daily as needed for Anxiety. Medications Discontinued during this Encounter Objective PHYSICAL EXAM INITIAL VS BP: (!) 141/87 (10/17/161745), Heart Rate: 66 bpm (10/17/161745), Resp: 18 (10/17/161745), Temp:97.6 ??F (36.4 ??C) (10/17/161745), Temp src: Oral (10/17/161745), SpO2: 98 % (10/17/161745), Height: 6' 2 (188 cm) (10/17/161745), Weight: 111.1 kg (245 lb) (10/17/161745), BMI (Calculated): 31.44 (10/17/161745) No LMP for male patient. Physical Exam [...] and dry. He is not diaphoretic. Psychiatric: He expresses no homicidal and no suicidal ideation. He expresses no suicidal plans andno homicidal plans. Patient states he feels anxious, but is calm and cooperative in the room. States he would never hurt himself. Nursing note and vitals reviewed. DIAGNOSTICS LAB: Labs this ED Encounter - No data to display RADIOLOGY: No orders to display EKG: PROCEDURES Procedures MEDICAL DECISION MAKING AND PLAN OF CARE MDM Summary Statement: Chronic ed patient. Patient here again for xanax refill. Patient is pleasant today. Report from psych intake that he has been unpleasant and threatening before though I have not looked back at all his charts Long discussion with patient, declines seeing intake counseling.Pt has long list of excusesas why he's not able to follow up with psychiatry. Patient denies any tremors. Will provide with one week of xanax. Stressed that we cannot continue to provide xanax. In addition, he has had multipleattempts to have psychiatric follow up and has cancelled his appointments. Patient is stable for discharge. I have reviewed previous: notes I have reviewed nursing notes related to past medical history, social history, and review of systems and agree, unless otherwise noted. Consults: other Clinical Course: 6:49 PM: Discussed the patient's medical history, history of present illness, and current findings with case management, who states several appointments have been made for the patient and he has cancelled all of them. Will provide patient with proper ED paperwork. 7:56 PM: Offered for intake counselor to see patient, but he declines. Updated pt on their results.Patient will be discharged home. Recommended follow up with psychiatrist. RTER with worsening sx. Pt understands and agrees with the plan. All questions and concerns addressed. The patient is stable for discharge. ED provider and ED nurse verbally discussed patient plan of care at this time. ED Course . New Prescriptions for this Encounter LAST VS BP: 117/69 (10/17/161923), Heart Rate: 63 bpm (10/17/161923), Resp: 12 (10/17/161923), Temp: 97.6 ??F (36.4 ??C) (10/17/161745), Temp src: Oral (10/17/161745), SpO2: 97 % (10/17/161923) CLINICAL IMPRESSION Final diagnoses: [F41.9] Anxiety (Primary) DISPOSITION, EDUCATION AND MEDICATION RECONCILIATION Medications reconciled. See after visit summary for patient education on discharged patients. Follow up: [facility], PHYSICIAN REFERRAL LINE [phone] In 1 week DISCHARGED HOME IN STABLE CONDITION. ATTESTATION STATEMENTS This note has been prepared by Kimmie Farooq acting as a scribe for Dr. Dave Jacob on 10/17/2016 at 7:57 PM. The scribe's documentation has been prepared under my direction and personally reviewed by me, Dave Jacob, in its entirety on 10/17/16 at 7:57 PM. I confirm that the note above accurately reflects all work, treatment, procedures, and medical decision making performed by me. MATIC MACHINE OPERATOR documented in this encounter Plan of Treatment Not on file documented as of this encounter Visit Diagnoses Diagnosis Anxiety- Primary Anxiety state, unspecified documented in this encounter
--- OUTSIDE RECORDS SUMMARY | 2024-09-10 04:20 | XMS_ITS | Encounter Summary ---
Author Organization [employer] Address [address] [place] [address] Care Team Providers Care Entry Level Recruiter Name Role Phone Unavailable Primary Care Provider Unavailabl e Reason for Visit * Reason Onset Date Comments Medication Question 03/22/2018 Encounter Details Date Type Department Care Team (Late st Contact Info) Description 03/22/2018 Nurse Triage [facility] Nurse data control clerk [address] [place] [address] Iwona Casillas, RN Social History Tobacco Use Types Packs/Day [...] Miscellaneous Notes * Telephone Encounter - Iwona Casillas, RN - 03/22/2018 9:33 PM CDT Pt instructed r.e. Per pharmacist Amira : 1. There is not technically a physiologic response called rebound anxiety but people report it. 2. Alprazolam can affect your sleep, so nightmares might becaused by Alprazolam. 3. Sweatiness is not caused by Alprazolam. Wonders what sweatiness could be from, suggested may be anxiety, pt suggests maybe from two infections, sinusitis, bad ear infection. Anxious r.e. Going back to work , daughter going back to school, son going back to High school in amonth. Slept in, felt bad hearing others go to work, fell back to sleep, had nightmare. Spent 3 days at sisters house, let tension go. Not able to do that now. Took 2 alprazolams today. Talking helpsa lot today. Talked about old counselor, Psychiatrist thinks needs to resume psychotherapy. Pt asks if I think physical illness worsens his anxiety. I explained that physical illness is a stressor and can diminish your ability to tolerate anxiety. Tension in arms in legs would not be likely to be caused by alprazolam, as it is a relaxing agent. Pt states alprazolam can cause twitching in some cases online. Was informed that is more likely to occur when pt is new to a drug, not when they have been taking it for years. Tension is more likely due to anxiety. Encouraged pt to try to go to sleep. * Telephone Encounter - Iwona Casillas RN - 03/22/2018 9:25 PM CDT Per pharmacist Amira : 1. There is not technically a physiologic response called rebound anxiety but people report it. 2. Alprazolam can affect your sleep, so nightmares might be caused by Alprazolam. 3. Sweatiness is not caused by Alprazolam. * Telephone Encounter - Iwona Casillas RN - 03/22/2018 9:03 PM CDT Reason for Disposition ??? Caller has medication question about med not prescribed by PCP and triager unable to answer question (e.g., compatibility with other med, storage) Additional Information ??? Commented on: Difficult to awaken or acting confused (e.g., disoriented, slurred speech) A little dazed ? ? Commented on: [1] Lightheadedness or dizziness AND [2] persists > 10 minutes AND [3] not relieved by reassurance provided by triager Just a little bit Comes and goes less than 10 minutes at a time. Feels tension in upper arms and shoulder area. Protocols used: MEDICATION QUESTION CALL-A-AH, ANXIETY AND PANIC ATTACK-A-AH Does not want advice, just wants to know if there is such a phenomenon as Rebound Anxiety from Alprazolam and whether Nightmares or Sweatiness can be caused by Alprazolam. * Telephone Encounter - Iwona Casillas RN - 03/22/2018 8:40 PM CDT Regarding: Having anxiety ----- Message from Avelina Ward sent at 03/22/2018 8:38 PM CDT ----- Patient's [address] [address] [place] [id number] Patient's current location: Same as above documented in this encounter Plan of Treatment Not on file documented as of this encounter Visit Diagnoses Not on filedocumented in this encounter
--- OUTSIDE RECORDS SUMMARY | 2024-09-10 04:20 | XMS_ITS | Encounter Summary ---
Author Organization [employer] Address [address] [place] [address] Care Team Providers Care Javascript Engineer Name Role Phone Unavailable Primary Care Provider Unavailabl e Reason for Visit * Reason Onset Date Comments leg pain and cramps 11/05/2017 Encounter Details Date Type Department Care Team (Late st Contact Info) Description 11/05/2017 [facility] chronometer assembler [address] [place] [address] Radha Peoples RN Social History Tobacco Use Types Packs/Day [...] Miscellaneous Notes * Telephone Encounter - Radha Peoples RN - 11/05/2017 7:18 AM COIL PLACER Reason for Disposition ? ? Leg pain or muscle cramp is a chronic symptom (recurrent or ongoing AND present > 4 weeks) Protocols used: LEG PAIN-A-AH PLACER * Telephone Encounter - Radha Peoples RN - 11/05/2017 7:01 AM COIL PLACER Regarding: alvarez - told he has low iron from blood work in ED on Wednesday ----- Message from Angi Kim RN sent at 11/05/2017 5:53 AM COIL PLACER ----- Patient's address on [address]: [address] [place] [id number] Patient's current location: Same as above PLACER documented in this encounter Plan of Treatment Not on file documented as of this encounter Visit Diagnoses Not on filedocumented in this encounter
--- OUTSIDE RECORDS SUMMARY | 2024-09-10 04:20 | XMS_ITS | Encounter Summary ---
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 MONITOR [facility] CHLORIDE 102 98 - 107 mmol/L 08/16/2017 3:39 AM ELECTRONIC DEVICE MONITOR [facility] CO2 26 22 - 29 mmol/L 08/16/2017 3:39 AM ELECTRONIC DEVICE MONITOR [facility] CALCIUM 9.9 8.6 - 10.2 mg/dL 08/16/2017 3:39 AM ELECTRONIC DEVICE MONITOR [facility] BUN 9 6 - 20 mg/dL 08/16/2017 3:39 AM ELECTRONIC DEVICE MONITOR [facility] CREATININE 1.14 0.67 - 1.17 mg/dL 08/16/2017 3:39 AM ELECTRONIC DEVICE MONITOR [facility] GLUCOSE 100(H) 74 - 99 mg/dL 08/16/2017 3:39 AM ELECTRONIC DEVICE MONITOR [facility] TOTAL PROTEIN 8.5 6.7 - 8.6 g/dL 08/16/2017 3:39 AM ELECTRONIC DEVICE MONITOR [facility] ALBUMIN 4.6 3.5 - 5.2 g/dL 08/16/2017 3:39 AM ELECTRONIC DEVICE MONITOR [facility] BILIRUBIN TOTAL 1.4(H) 0.3 - 1.2 mg/dL 08/16/2017 3:[address] [facility] ALKALINE PHOSPHATASE 70 40 - 129 U/L 08/16/2017 3:[address] [facility] AST 16 <41 U/L 08/16/2017 3:[address] [facility] ALT 18 <42 U/L 08/16/2017 3:[address] [facility] GFR >60 >=60 mL/min/1.7 3 sq meter 08/16/2017 3:39 AM [facility] [employer] [facility] Comment: eGFR has not been validated [...] GFR, >60 >=60 mL/min/1.7 3 sq meter 08/16/2017 3:39 AM [facility] [employer] [facility] ANION GAP 14 8 - 16 mmol/L 08/16/2017 3:39 AM [facility] [employer] [facility] Blood Venipuncture / Unknown 08/16/2017 3:03 AM ELECTRONIC DEVICE MONITOR 08/16/2017 3:11 AM [facility] Narrative [facility] - 08/16/2017 3:39 AM [facility] Samples containing indocyanine green cause interferences on Total and/or Direct Bilirubin and must not be measured. Ian Gauthier DO CHEMISTRY ORDERABLES [facility] [employer] [facility] [id number] [address] [facility] [place] [id number] * (ABNORMAL) CBC WITH DIFFERENTIAL (08/16/2017 3:03 AM ELECTRONIC DEVICE MONITOR) [facility] WBC 5.9 4.0 - 9.8 K/uL 08/16/2017 3:16 AM ELECTRONIC DEVICE MONITOR [facility] RBC 6.03(H) 4.50 - 5.40 M/uL 08/16/2017 3:16 AM ELECTRONIC DEVICE MONITOR [facility] HEMOGLOBIN 12.4(L) 13.6 - 16.5 g/dL 08/16/2017 3:16 AM ELECTRONIC DEVICE MONITOR [facility] HEMATOCRIT 41.6 40.0 - 48.0 % 08/16/2017 3:16 AM ELECTRONIC DEVICE MONITOR [facility] MCV 69.0(L) 82.0 - 99.0 fL 08/16/2017 3:16 AM ELECTRONIC DEVICE MONITOR [facility] MCH 20.6(L) 27.2 - 32.6 pg 08/16/2017 3:16 AM [employer] [facility] MCHC 29.8(L) 31.5 - 35.5 g/dL 08/16/2017 3:16 AM [facility] RDW 18.0(H) 11.5 - 14.5 % 08/16/2017 3:16 AM [facility] RDW-STDEV 41.8 37.1 - 48.7 fL 08/16/2017 3:16 AM [facility] PLATELETS 200 140 - 350 K/uL 08/16/2017 3:16 AM [facility] MPV 9.1(L) 9.3 - 12.4 fL 08/16/2017 3:16 AM [facility] NEUTROPHILS 67 % 08/16/2017 3:16 AM [facility] LYMPHOCYTES 25 % 08/16/2017 3:16 AM ELECTRONIC DEVICE MONITOR [facility] MONOCYTES 6 % 08/16/2017 3:16 AM ELECTRONIC DEVICE MONITOR [employer] [facility] EOSINOPHILS 2 % 08/16/2017 3:16 AM ELECTRONIC DEVICE MONITOR [facility] BASOPHILS 1 % 08/16/2017 3:16 AM ELECTRONIC DEVICE MONITOR [employer] [facility] IMMATURE GRANULOCYTES 0 % 08/16/2017 3:16 AM ELECTRONIC DEVICE MONITOR [employer] [facility] NEUTROPHIL ABSOLUTE 3.91 1.90 - 7.00 K/uL 08/16/2017 3:16 AM ELECTRONIC DEVICE MONITOR [employer] [facility] LYMPHOCYTE ABSOLUTE 1.46 0.70 - 4.50 K/uL 08/16/2017 3:16 AM ELECTRONIC DEVICE MONITOR [employer] [facility] MONOCYTE ABSOLUTE 0.34 0.10 - 1.30 K/uL 08/16/2017 3:16 AM ELECTRONIC DEVICE MONITOR [employer] [facility] EOSINOPHIL ABSOLUTE 0.09 0.00 - 0.70 K/uL 08/16/2017 3:16 AM ELECTRONIC DEVICE MONITOR [employer] [facility] BASOPHILS ABSOLUTE 0.04 0.00 - 0.20 K/uL 08/16/2017 3:16 AM ELECTRONIC DEVICE MONITOR [employer] [facility] IMMATURE GRANULOCYTES ABSOLUTE 0.02 0.00 - 0.03 K/uL 08/16/2017 3:16 AM ELECTRONIC DEVICE MONITOR [employer] [facility] Blood Venipuncture / Unknown 08/16/2017 3:03 AM ELECTRONIC DEVICE MONITOR 08/16/2017 3:11 AM ELECTRONIC DEVICE MONITOR Ian Gauthier HEMATOLOGY ORDERABLE S [employer] [facility] [id number] [place] [address] documented in this encounter Visit Diagnoses Diagnosis Anxiety state- Primary Anxiety state, unspecified Tooth infection Acute apical periodontitis of pulpal origin Nausea Nausea alone Nausea Nausea alone Tooth infection Acute apical periodontitis of pulpal origin documented in this encounter Administered Medications Inactive Administered Medications - up to 3 most recent administrations Medication Order MAR Action Action Date Dose Rate Site ALPRAZolam (XANAX) tablet 1 mg 1 mg, Oral, ONE TIME ONLY, 1 dose, On Wed08/16/17 at 0245, Routine Admin by Another Clinician (Comment) 08/16/2017 2:45 AM ELECTRONIC DEVICE MONITOR 1 mg amoxicillin-clavulanate (AUGMENTIN) 875-125 mg per tablet 1 Tablet 1 Tablet, Oral, ONE TIME ONLY, 1 dose, On Wed08/16/17 at 0530, Routine, Antibiotic Indication: Upper Respiratory Tract / ENT Infection Admin by Another Clinician (Comment) 08/16/2017 5:30 AM ELECTRONIC DEVICE MONITOR 1 Tablet documented in this encounter Active and Recently Administered Medications Times are shown in ELECTRONIC DEVICE MONITOR. Scheduled Medication Order 08/14/2017 08/15/2017 08/16/2017 ALPRAZolam (XANAX) tablet 1 mg (COMPLETED) 1 mg, Oral, ONE TIME ONLY, 1 dose, On Wed08/16/17 at 0245, Routine 0245 (Admin by [facility] er Clinician (Comment) - Provider: Carlos Azar RN) amoxicillin-clavulanate (AUGMENTIN) 875-125 mg per tablet 1 Tablet (COMPLETED) 1 Tablet, Oral, ONE TIME ONLY, 1 dose, On Wed08/16/17 at 0530, Routine, Antibiotic Indication: Upper Respiratory Tract / ENT Infection 0530 (Admin by [facility] er Clinician (Comment) - Provider: Carlos Azar RN) documented in this encounter
--- OUTSIDE RECORDS SUMMARY | 2024-09-10 04:20 | XMS_ITS | Encounter Summary ---
Author Organization [employer] Address 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 Pt seen in ED last week for RUSSO, also has hx of depression/anxiety. Pt states he was sent home with script for xanax, states he only has enough medicine left until tomorrow -- pt tried calling over 100 psychiatrists , can't get in until March 25 and doesnt wan't to run out of meds before then. +photophobia, sensitive to sounds. Reports RUSSO pain goes down into back and upper back. Denies SI/HI. Pt states I just want proper tx for RUSSO & anxiety Encounter Details Date Type Department Care Team (Late st Contact Info) Description 03/03/2017 10:50 PM CDT - 03/03/2017 11:59 PM CDT Emergency [facility] Emergency Department [address] [place] [address] Dave Jacob MD NO ADDRESS ON FILE Chronic prescription benzodiazepine use (Primary Dx) Discharge [...] Sign Reading Time Taken Comments Blood Pressure 147/80 03/03/2017 11:51 PM CDT Pulse 62 03/03/2017 11:51 PM CDT Temperature 36.8 ??C (98.3 ??F) 03/03/2017 9:14 PM CD T Respiratory Rate 18 03/03/2017 11:51 PM CDT Oxygen Saturation 97% 03/03/2017 11:51 PM CDT Inhaled Oxygen Concentration - - Weight 106.6 kg (235 lb) 03/03/2017 8:27 PM CDT Height 188 cm (6' 2 ) 03/03/2017 8:27 PM CDT Body Mass Index 30.17 03/03/2017 8:27 PM CDT documented in this encounter Discharge Instructions * Discharge Instructions* Dave Jacob MD - 03/03/2017 11:43 PM CDT Follow up with the referral line for a primary doctor. Call [phone]. Follow up in the ER with worsening symptoms. We are not a facility that is able to continually refill your chronic medications. * Attachments The following attachments cannot be sent through Care Everywhere. * WITHDRAWAL: BENZODIAZEPINE (SLOVENIAN) documented in this encounter Medications at Time of Discharge Medication Sig Dispensed Refills Start Date End Date omeprazole (PriLOSEC) 40 mg Capsule, Delayed Release(E.C.) Take 40 mg by mouth daily. ibuprofen (MOTRIN) 600 mg tablet Take 1 Tablet (600 mg) by mouth every 6 hours as needed for Pain, Mild. 20 Tablet None 10/30/2016 fluticasone (FLONASE) 50 mcg/spray [place], Suspension Administer 2 Sprays in each nostril [...] (2 mg) by mouth 3 times daily for 1 day. 3 Tablet 03/03/2017 03/04/2017 citalopram (CeleXA) 40 mg tablet Take 1 Tablet (40 mg) by mouth daily. 30 Tablet 02/25/2017 07/08/2017 sucralfate (CARAFATE) 1 gram tablet Take 1 Gram by mouth 4 times daily before meals and at bedtime. 06/04/2017 documented as of this encounter Progress Notes * Minal Saldaña RN - 03/05/2017 1:35 PM CDT Asked to call patient regarding needing a psychiatry appointment sooner than the March 25 appointment date he has. Patient has been in [facility] twice in February for medication refills, and wants a prescription given to last until his March 25 appointment. Patient has [facility]. CM is not aware of the psychiatrist he currently has an appointment scheduled with. This CM spoke with patient at bedside on Oct 17, 2016. Patient was reportedly private paying for psychiatry appointments as he refuses to go to any clinics in [place]. Tammy VILLANUEVA has made several appointments at various clinics in [place], and patient has cancelled every appointment without explanation. CM discussed the importance of outpatient follow up for routine prescription refills at that time. Patientreported on this date that he had an appointment with a psychiatrist on Oct 29, but returned to theER on Oct 30 requesting more Xanax. Patient was told at that time that he would not receive any more prescriptions for Xanax. [facility] reports she will not make any more appointments for this patient, no referral was made at this time. Attempted to call patient to discuss his medication and psychiatry follow up needs. Voice message left on patient's phone, and CM awaits return call. Minal Saldaña RN ACM-visual education teacher [id number] documented in this encounter ED Notes * Jesus Tony RN - 03/03/2017 11:58 PM CDT Pt provided discharge instructions, verbalizes understanding of instructions. Pt is A&O x4, resps even and unlabored, ambulatory w/ steady gait. * Jesus Tony RN - 03/03/2017 11:[address] Jacob @ bedside. * Dana Velez RN - 03/03/2017 11:05 PM CDT Pt was here last and saw . Pt states he is between psychiatrists and can't getin until 03/25/17 but it wait listed. Pt states he will out of alprazolam tomorrow from last script. Pt has had neck pain in the L side of neck off and on and thinks that is causing a headache. Pt states I have some blurry vision in my L eye. Pt appears in NAD with family at bedside. Pt RR is equal and non-labored, skin is PWD. Pt is calm and cooperative at this time. Pt placed on cont pulse ox. Will cont to monitor. * Kaitlin Humphrey RN - 03/03/2017 10:11 PM CDT Emergency Department Adult Headache Protocol [facility] ORDERS ARE ENTERED ???PER PROTOCOL?? Nursing Orders: o Insert peripheral IV Laboratory Orders: o ED Hold ([id number]); green, purple, blue tubes o Sed rate (patients age 50 and older) - (XAG832) o Urinalysis with Reflex Culture ([id number]) o If female of childbearing age: POC Urine HCG (POC7) or HCG Qualitative urine (AOC367) if sending to lab Medication Orders: o Sodium chloride 0.9% (normal saline) flush 5 mL every 8 hours o Sodium chloride 0.9% (normal saline) flush 5 mL PRN for saline lock or medication administration Initiating Department(s): Adult Emergency Department, Pharmacy Reviewed: 12/2015, 01/2016, 01/2017 Revised: 12/2015,01/2016, 01/2017 Reviewed by: Diana Velásquez RN, BSN, RUDDY Nurse Autopsy Assistant Approved by: Medical Executive Committee, Nursing, Pharmacy & Therapeutics Date: 01/2017 * Leslie Gallardo RN - 03/03/2017 8:40 PM CDT Pt came up to triage desk asking to speak with this RN. Pt states I just wanted to let you know, Rob having a little pain in my left rib area now and a little bit of shooting pain down my left arm.I don't know if you guys want to do an EKG or something, but I just wanted to let you know . Pt denied chest pain to this RN earlier in triage mchugh during initial triage time when asked. Order put in for 12-lead EKG. * Dave Jacob MD - 03/03/2017 8:18 PM CDT HISTORY OF PRESENT ILLNESS Carlos Kelly, a 47 y.o. male presents to the ED with a Chief Complaint of Headache Subjective HPI Comments: 11:25 PM: Carlos Kelly is a 47 y.o. male with a history of PTSD, anxiety, depression, DM, who presents to the Emergency Department for a medication refill. The patient states he hasbeen on 2 mg of Xanax, 3x/day for the past 20 years. Patient states he has called 120 psychiatrists and made an appointment with one on 03/25/17. He states he was here 6 days ago and received a Rx for one week of Xanax and only has one day left. Patient states he is worried about withdrawal. Alsocomplains of a RUSSO that has been present for one week. Physician(s): No primary care provider on file. History provided by: The patient Arrived by: Private vehicle Arrived from: Home Headache Quality: Unable to specify Severity currently: Unable to specify Severity at highest: Unable to specify Onset quality: Gradual Timing: Unable to specify Associated symptoms: no abdominal pain, no back pain, no congestion, no diarrhea, no dizziness, no nausea, no numbness, no sore throat and no vomiting REVIEW OF SYSTEMS Review of Systems Constitutional: Negative. Negative for activity change and appetite change. HENT: Negative for congestion and sore throat. Eyes: Negative. Negative for discharge and redness. Respiratory: Negative. Negative for chest tightness and shortness of breath. Cardiovascular: Negative. Negative for chest pain and palpitations. Gastrointestinal: Negative. Negative for abdominal pain, diarrhea, nausea and vomiting. Genitourinary: Negative. Negative for dysuria and hematuria. Musculoskeletal: Negative. Negative for back pain. Skin: Negative. Negative for pallor and rash. Neurological: Positive for headaches. Negative for dizziness and numbness. PAST MEDICAL HISTORY REVIEWED MEDICAL: Patient has [...] HOME MEDICATIONS Discharge Medication List as of 03/03/2017 11:43 PM CONTINUE these medications which have CHANGED Details ALPRAZolam (XANAX) 2 mg tablet Take 1 Tablet (2 mg) by mouth 3 times daily for 1 day., Disp-3 Tablet, R-0 CONTINUE these medications which have NOT CHANGED Details omeprazole (PriLOSEC) 40 mg Capsule, Delayed Release(E.C.) Take 40 mg by mouth daily. citalopram (CeleXA) 40 mg tablet Take 1 Tablet (40 mg) by mouth daily., Disp-30 Tablet, R-0 ibuprofen (MOTRIN) 600 mg tablet Take 1 Tablet (600 mg) by mouth every 6 hours as needed for Pain, Mild., Disp-20 Tablet, R-None methylPREDNISolone (MEDROL, BIJU,) 4 mg Tablets, Dose Pack Medrol dose pack as directed., Disp-1 Package, R-None amoxicillin (AMOXIL) 500 mg capsule Take 1 Capsule (500 mg) by mouth 3 times daily., Disp-21 Capsule, R-None fluticasone (FLONASE) 50 mcg/spray [place], Suspension Administer 2 Sprays in each nostril daily., Disp-16 Gram, R-0 sucralfate (CARAFATE) 1 gram tablet Take [...] Objective PHYSICAL EXAM INITIAL VS BP: (!) 155/88 (03/03/172026), Heart Rate: 67 bpm (03/03/172026), Resp: 20 (03/03/172026), Temp:97 ??F (36.1 ??C) (03/03/172026), Temp src: Axillary (03/03/172026), SpO2: 98 % (03/03/172026), Height: 6' 2 (188 cm) (03/03/172026), Weight: 106.6 kg (235 lb) (03/03/172026), BMI (Calculated):30.16 (03/03/172026) No LMP for male patient. Physical Exam Constitutional: He is oriented to person, place, and time. He appears well- developed and well-nourished. No distress. HENT: Head: Normocephalic and atraumatic. Eyes: Right eye exhibits no discharge. Left eye exhibits no discharge. Neck: No JVD present. Pulmonary/Chest: Effort normal. Musculoskeletal: Normal range of motion. He exhibits no edema or tenderness. Neurological: He is alert and oriented to person, place, and time. No cranial nerve deficit. He exhibits normal muscle tone. Non focal. Normal gait. Skin: Skin is warm and dry. He is not diaphoretic. Psychiatric: He has a normal mood and affect. Nursing note and vitals reviewed. DIAGNOSTICS LAB: Labs this ED Encounter URINALYSIS WITH REFLEX CULTURE Result Value COLOR UA Pale Yellow CLARITY UA Clear SPECIFIC GRAVITY UA 1.008 PH UA 6.0 LEUKOCYTE ESTERASE UA Negative NITRITE UA Negative PROTEIN UA Negative GLUCOSE UA Negative KETONES UA Negative UROBILINOGEN UA Normal BILIRUBIN UA Negative BLOOD UA Negative EXTRA TUBE Narrative: The following orders were created for panel order EXTRA TUBE. Procedure Abnormality Status --------- ------ EXTRA TUBE (GREEN)[[id number]] Final result EXTRA TUBE (LAV)[[id number]] Final result EXTRA TUBE (BLUE)[[id number]] Final result EXTRA TUBE (PINK)[[id number]] Final result Please view results for these tests on the individual orders. EXTRA TUBE (GREEN) EXTRA TUBE (LAV) EXTRA TUBE (BLUE) EXTRA TUBE (PINK) RADIOLOGY: No orders to display EKG: NSR, rate of 61. Some artifact. No clear ischemia. PROCEDURES Procedures MEDICAL DECISION MAKING AND PLAN OF CARE MDM Summary Statement: Chronic benzo use. Now here for refill. Misuse listed in epic chart. Also other vague complaints including chronic headache, weakness. History and physical do not suggest acute emergency. Patient uses our ER for medication refills and has never been able to follow up with a primary. He gives same story each time. Our case coordinators have seen him previously and given follow up that he didn't go to. I think he is likely drug seeking. Will give #3 Xanax. Encouraged primary doctor follow up. Pt is upset but I have discussed with patient that we are an ER and not a place that will be able to give refills for his controlled substances. I have reviewed previous: notes and labs I have reviewed current: labs and ECG I have reviewed nursing notes related to past medical history, social history, and review of systems and agree, unless otherwise noted. ED Course 11:57 PM: Updated pt on their lab results. Patient will be discharged home. Recommended follow up with Central Referral Scheduling. RTER with worsening sx. Pt understands and agrees with the plan. All questions and concerns addressed. The patient is stable for discharge. ED provider and ED nurse verbally discussed patient plan of care at this time. Discharge Medication List as of 03/03/2017 11:43 PM CONTINUE these medications which have CHANGED Details ALPRAZolam (XANAX) 2 mg tablet Take 1 Tablet (2 mg) by mouth 3 times daily for 1 day., Disp-3 Tablet, R-0 CONTINUE these medications which have NOT CHANGED Details omeprazole (PriLOSEC) 40 mg Capsule, Delayed Release(E.C.) Take 40 mg by mouth daily. citalopram (CeleXA) 40 mg tablet Take 1 Tablet (40 mg) by mouth daily., Disp-30 Tablet, R-0 ibuprofen (MOTRIN) 600 mg tablet Take 1 Tablet (600 mg) by mouth every 6 hours as needed for Pain, Mild., Disp-20 Tablet, R-None methylPREDNISolone (MEDROL, BIJU,) 4 mg Tablets, Dose Pack Medrol dose pack as directed., Disp-1 Package, R-None amoxicillin (AMOXIL) 500 mg capsule Take 1 Capsule (500 mg) by mouth 3 times daily., Disp-21 Capsule, R-None fluticasone (FLONASE) 50 mcg/spray [place], Suspension Administer 2 Sprays in each nostril daily., Disp-16 Gram, R-0 sucralfate (CARAFATE) 1 gram tablet Take [...] Shortness of Breath. LAST VS BP: (!) 147/80 (03/03/172350), Heart Rate: 68 bpm (03/03/172310), Resp: 18 (03/03/172350), Temp:98.3 ??F (36.8 ??C) (03/03/172113), Temp src: Oral (03/03/172113), SpO2: 97 % (03/03/172350) CLINICAL IMPRESSION Final diagnoses: [Z79.899] Chronic prescription benzodiazepine use (Primary) DISPOSITION, EDUCATION AND MEDICATION RECONCILIATION Medications reconciled. See after visit summary for patient education on discharged patients. Follow up: Central Referral Scheduling [address] [facility] [id number] In 1 week DISCHARGED HOME IN STABLE CONDITION. ATTESTATION STATEMENTS This note has been prepared by Manohar Potter acting as a scribe for Dr. Dave Jacob on 03/03/2017 at 11:58 PM. The scribe's documentation has been prepared under my direction and personally reviewed by me, Dave Jacob, in its entirety on 03/04/17 at 6:24 AM. I confirm that the note above accurately reflects all work, treatment, procedures, and medical decision making performed by me. documented in this encounter Plan of Treatment Not on file documented as of this encounter Procedures Procedure Name Priority Date/Time Associated Diagnosis Comments URINALYSIS WITH REFLEX CULTURE Stat 03/03/2017 10:24 PM CDT EXTRA TUBE (GREEN) Stat 03/03/2017 10 :19 PM CDT EXTRA TUBE (LAV) Stat 03/03/2017 10:1 9 PM CDT EXTRA TUBE (BLUE) Stat 03/03/2017 10: 19 PM CDT EXTRA TUBE Stat 03/03/2017 10:19 PM CDT EXTRA TUBE (PINK) Stat 03/03/2017 10: 19 PM CDT EKG 12-LEAD Stat 03/03/2017 9:02 PM CDT documented in this encounter Results * URINALYSIS WITH REFLEX CULTURE (03/03/2017 10:24 PM CDT) COLOR UA Pale Yellow Pale to Dark Yellow 03/03/2017 10:47 PM CDT [email or web address] - . [facility] CLARITY UA Clear Clear 03/03/2017 10:47 PM CDT [email or web address] - . [facility] SPECIFIC GRAVITY UA 1.008 03/03/2017 10:47 PM CDT [email or web address] - . [facility] PH UA 6.0 5.0 - 8.0 03/03/2017 10:47 PM CDT [email or web address] - [facility] LEUKOCYTE ESTERASE UA Negative Negative 03/03/2017 10:47 PM CDT [email or web address] - [facility] NITRITE UA Negative Negative 03/03/2017 10:47 PM CDT [facility] - . [facility] PROTEIN UA Negative Negative 03/03/2017 10:47 PM CDT [facility] - . [facility] GLUCOSE UA Negative Negative 03/03/2017 10:47 PM CDT [facility] - . [facility] KETONES UA Negative Negative 03/03/2017 10:47 PM CDT [facility] - . [facility] UROBILINOGEN UA Normal <2.0 mg/dL 7 10:47 PM CDT [facility] - . [facility] BILIRUBIN UA Negative Negative 03/03/2017 10:47 PM CDT [facility] - [facility] BLOOD UA Negative Negative 03/03/2017 10:47 PM CDT [facility] - [facility] Urine URINE SPECIMEN OBTAINED BY CLEAN CATCH PROCEDURE / Unknown Collection / Unknown 03/03/2017 10:24 PM CDT 03/03/2017 10:29 PM CDT aDve Jacob MD URINE ORDERABLES [facility] CLIA# [id number] [address] [place] [address] * EXTRA TUBE (PINK) (03/03/2017 10:19 PM CDT) Blood Venipuncture / Unknown 03/03/2017 10:19 PM CDT 03/03/2017 10:28 PM CDT Dave Jacob MD CHEMISTRY ORDERABLE S [facility] CLIA# [id number] [address] [place] [address] * EXTRA TUBE (BLUE) (03/03/2017 10:19 PM CDT) Blood Venipuncture / Unknown 03/03/2017 10:19 PM CDT 03/03/2017 10:28 PM CDT Dave Jacob MD HEMATOLOGY ORDERABL ES Performing Organization Address [facility] Co de Phone Number [facility]# [id number] [address] [place] [address] * EXTRA TUBE (LAV) (03/03/2017 10:19 PM CDT) Blood Venipuncture / Unknown 03/03/2017 10:19 PM CDT 03/03/2017 10:28 PM CDT Dave Jacob MD HEMATOLOGY ORDERABL ES Performing Organization Address [facility] Co de Phone Number [facility]# [id number] [address] [place] [address] * EXTRA TUBE (GREEN) (03/03/2017 10:19 PM CDT) Blood Venipuncture / Unknown 03/03/2017 10:19 PM CDT 03/03/2017 10:28 PM CDT Dave Jacob MD CHEMISTRY ORDERABLE S Performing Organization Address [facility] de Phone Number [facility]# [id number] [address] [place] [address] * EKG 12-LEAD (03/03/2017 9:02 PM CDT) 03/03/2017 9:02 PM CDT Narrative INTERFACE SYSTEM - 03/04/2017 10:12 AM CDT ? Stationary ECG Study ? [facility] ? Test Date: ?03/03/2017 9:02 PM Pat Name: ? VINCENT CORPUS ? Department: ?? 41 ?Room: ? Gender: ? 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 [email or web address] : ?1970 ? Requested By: ?? Order Number: [id number] ?Reading MD: ?? Steve Ciaramita ? Measurements Intervals ?Harleigh ? Rate: ? 61 ? P: ?24 MI: ? 160 ?QRS: ?22 QRSD: ? 98 ? T: ?2 QT: ? 387 ? QTc: ?390 ? Interpretive Statements ? 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
--- OUTSIDE RECORDS SUMMARY | 2024-09-10 04:20 | XMS_ITS | Encounter Summary ---
Author Organization [facility] Address [address] [place] [address] Care Team Providers Care Compressor Station Chief Engineer Name Role Phone Unavailable Primary Care Provider Unavailabl e Reason for Visit * Reason Comments Withdrawal pt reports withdrawa l from celexa and alprazolam. pt last had medication in the morning. C/o shaking and anxiety. pt reports being out of celexa and alprazolam. denies si/hi Encounter Details Date Type Department Care Team (Late st Contact Info) Description 08/02/2017 2:56 AM CONTRACT ANALYST - 08/02/2017 3:15 AM CONTRACT ANALYST Emergency [facility] Emergency Department [address] [place] [address] [place] [address] [place] [id number] Drug-seeking behavior (Primary Dx) Discharge Disposition: Home or Self [...] Sign Reading Time Taken Comments Blood Pressure 161/104 08/02/2017 1:21 AM CONTRACT ANALYST Pulse - - Temperature 36.4 ??C (97.5 ??F) 08/02/2017 1:21 AM CS T Respiratory Rate 18 08/02/2017 1:21 AM CONTRACT ANALYST Oxygen Saturation 100% 08/02/2017 1:21 AM CONTRACT ANALYST Inhaled Oxygen Concentration - - Weight 99.8 kg (220 lb) 08/02/2017 1:21 AM CONTRACT ANALYST Height 185.4 cm (6' 1 ) 08/02/2017 1:21 AM CONTRACT ANALYST Body Mass Index 29.03 08/02/2017 1:21 AM CONTRACT ANALYST documented in this encounter Medications at Time of Discharge Medication Sig Dispensed Refills Start Date End Date omeprazole (PriLOSEC) 40 mg Capsule, Delayed Release(E.C.) Take 40 mg by mouth daily. ibuprofen (MOTRIN) 600 mg tablet Take 1 Tablet (600 mg) by mouth every 6 hours as needed for Pain, Mild. 20 Tablet None 10/30/2016 fluticasone (FLONASE) 50 mcg/spray Harrison, Suspension Administer 2 Sprays in each nostril [...] of this encounter ED Notes * Verna Salinas RN - 08/02/2017 3:14 AM CST This RN at bedside with discharge paperwork. Pt not in room, no belongings noted in room. Other staff noted that pt may have walked out after being seen by MD. Primary RN aware. MD aware. RACT ANALYST * Verna Salinas RN - 08/02/2017 3:12 AM CST Provider at bedside. RACT ANALYST * Tutu Patterson MD - 08/02/2017 1:19 AM CST History of Present Illness Primary Care Doctor: No primary care provider on file. Documented Triage Chief Complaint: Withdrawal Provider was at the bedside at 3:02 AM. Carlos Mcgee is a 47 y.o. male who presents with withdrawal from Xanax. His last dose was this morning, and states he is now out of his prescription. He reports associated chills and anxiety. He was seen at [facility] ER a couple of hours and given prescription for Valium, but refuses to fill the Valium. Patient reports right ear pain, and has seen an ENT for this. He does not have a primary care or a psychiatrist. Chart review: patient was seen at [facility] ER yesterday and discharged at 12:53am with a prescription for Valium and ear drops. Onset: Gradual Severity: Moderate Duration: Unknown Frequency/Progression: Unchanged Quality: n/a Radiation: n/a Modifiers: n/a Associated symptoms: See above. Patient information was obtained from primarily from the patient and medical records. History/Exam limitations: drug-seeking behavior Review of Systems ?? A comprehensive review of systems was completed. See HPI for additional ROS Constitutional: No Fever, + chills. ENT: No rhinorrhea, No sore throat. + right ear pain. Eyes: No vision change, no photophobia Respiratory: No cough, No dyspnea Cardiac: No chest pain, No palpitations GI: No abdominal pain, no nausea, no vomiting, no diarrhea : No dysuria, no hematuria Musculoskeletal: No joint pain, no muscle aches Skin: No rash Heme: No spontaneous bleeding, no bruising Neuro: No weakness, no headache Psych: + anxiety, withdrawal. No hallucinations, no acute change in mood Relevant Medical History Past Medical History: Past Medical History: Diagnosis Date ??? Anxiety ??? Chronic neck pain ??? Depression anxiety ??? Diabetes ??? Diverticulitis ??? HTN (hypertension) ??? Panic attacks ??? PTSD (post-traumatic stress disorder) Past Surgical History: Past Surgical History: Procedure Laterality Date ??? CHG ANES REMOVAL GALLBLADDER ??? HX CHOLECYSTECTOMY Home Medications: Discharge Medication List as of 08/02/2017 3:12 AM CONTINUE these medications which have NOT CHANGED Details citalopram (CeleXA) 40 mg tablet Take 1 Tablet (40 mg) by mouth daily., Disp-30 Tablet, R-0 ALPRAZolam (XANAX) 2 mg tablet Take 1 Tablet (2 mg) by mouth every 12 hours as needed for Anxiety.,Disp-14 Tablet, R-0 omeprazole (PriLOSEC) 40 mg Capsule, Delayed Release(E.C.) Take 40 mg by mouth daily. fluticasone (FLONASE) 50 mcg/spray Harrison, Suspension Administer 2 Sprays in each nostril daily., Disp-16 Gram, R-0 atenolol (TENORMIN) 100 mg tablet Take 0.5 Tablet (50 mg) by mouth 2 times daily., Disp-10 Tablet, R-0 amoxicillin-clavulanate (AUGMENTIN) 875-125 mg tablet Take 1 Tablet by mouth every 12 hours. HYDROcodone-acetaminophen (NORCO) 5-325 mg tablet Take 1 Tablet by mouth every 4 hours as needed for Pain, Moderate. sucralfate (CARAFATE) 1 gram tablet Take 1 Tablet (1 Gram) by mouth 4 times daily before meals and at bedtime., Disp-21 Tablet, R-none ibuprofen (MOTRIN) 600 mg tablet Take 1 Tablet (600 mg) by mouth every 6 hours as needed for Pain, Mild., Disp-20 Tablet, R-None methylPREDNISolone (MEDROL, BIJU,) 4 mg Tablets, Dose Pack Medrol dose pack as directed., Disp-1 Package, R-None amoxicillin (AMOXIL) 500 mg capsule Take 1 Capsule (500 mg) by mouth 3 times daily., Disp-21 Capsule, R-None hyoscyamine 0.125 mg Tablet, Sublingual Place [...] 2 times daily as needed for Dizziness. albuterol 90 mcg/Actuation HFA inhaler Take 2 Puffs by inhalation every 6 hours as needed for Shortness of Breath. Allergies: Bactrim [sulfamethoxazole-trimethoprim]; Bystolic [nebivolol]; Carvedilol; Clindamycin; Clonidine; Contrast [iodinated contrast- oral and iv dye]; Hydralazine; Levaquin [levofloxacin]; Lidocaine; Lisinopril; Morphine; Paxil [paroxetine hcl]; Pepcid [famotidine]; Percocet [oxycodone-acetaminophen]; Sulfa (sulfonamide antibiotics); and Uroseptic ds Social History: reports that he quit smoking about 21 years ago. His smoking use included Cigarettes. He has a 2.00pack-year smoking history. He has never used smokeless tobacco. He reports that he does not drink alcohol or use drugs. Family History: family history includes Diabetes in his maternal grandfather and maternal grandmother; Other in hisfather; Stroke in his father. Physical Exam BP: (!) 161/104 (08/02/17120), Pulse: (not recorded), Resp: 18 (08/02/17120), Temp: 97.5 ??F (36.4 ??C) (08/02/17120), Temp src: Oral (08/02/17120) General: Alert, no obvious distress. HEENT: Normocephalic, atraumatic, Throat clear, Nose without drainage, mucous membranes moist, cotton in R ear Neck: No JVD Back: Not tender Chest Wall: No tenderness, injury or deformity Extremities: No edema, no calf tenderness Skin: No rash, no petechiae, no purpura Lymphatic: No lymphadenopathy noted Neuro: No facial droop, good and equal strength in all ext. Psychiatric: normal affect and mood. Other: Studies and Interpretation Pulse Oximetry Interpretation: Saturation: 100% Oxygen Delivery: Room Air Interpretation: Not hypoxic Imaging (all imaging was independently reviewed by me): No orders to display Lab: (Reviewed by me), Significant for: Medical Decision Making and ED Course Medical Decision Making: Patient known to me from prior ER visits, typically the patient has multiple excuses why he does not have a prescription for Xanax, today is no different. He refuses to fill prescription he received at [facility] moments before his arrival here because he takes Xanax not Valium . He is exhibiting no signs of withdrawal. I will not be prescribing Xanax from the ED. He was given referrals to establish a primary care provider. He understands it is his responsibility to do this. Progress Note(s) 3:15 AM: Updated pt on their exam results. Recommended follow up with PCP and psychiatry. RTER withworsening sx. Pt understands and agrees with the plan. All questions and concerns addressed. The patient is stable for discharge. ED provider and ED nurse verbally discussed patient plan of care at this time. Case Discussed: Amount and/or Complexity of Data Reviewed --I reviewed the labs and/or radiology studies, vital signs, and nursing notes. I agree with the nursing notes except as noted in the body of this record. --Clinical lab tests: ordered and reviewed --Independent visualization of images, tracings, or specimens (including EKGs): yes --Previous electrocardiograms reviewed: no --Reviewed past medical records: yes --Discuss the patient with other providers: no Condition at disposition: Stable 0315: I updated the patient on findings, diagnosis, and plan for discharge. Any prescriptions givenare listed below and they were instructed to follow up with the given provider. Pt agrees with the plan and is comfortable going home. The patient is clinically well; my impression is that at this time, they are safe for discharge. I have spent time counseling the patient on their diagnosis, findings, results, and plan including strict return to ER instructions for this diagnosis and mandatory follow up. ED provider and ED nurse verbally discussed patient plan of care at this time. Vitals at Discharge: BP (!) 161/104 (BP Location: Right arm, Patient Position (BP): Sitting) Temp97.5 ??F (36.4 ??C) (Oral) Resp 18 Ht 6' 1 (1.854 m) Wt 99.8 kg (220 lb) SpO2 100% BMI 29.03 kg/m?? New Prescriptions: Discharge Medication List as of 08/02/2017 3:12 AM CONTINUE these medications which have NOT CHANGED Details citalopram (CeleXA) 40 mg tablet Take 1 Tablet (40 mg) by mouth daily., Disp-30 Tablet, R-0 ALPRAZolam (XANAX) 2 mg tablet Take 1 Tablet (2 mg) by mouth every 12 hours as needed for Anxiety.,Disp-14 Tablet, R-0 omeprazole (PriLOSEC) 40 mg Capsule, Delayed Release(E.C.) Take 40 mg by mouth daily. fluticasone (FLONASE) 50 mcg/spray Harrison, Suspension Administer 2 Sprays in each nostril daily., Disp-16 Gram, R-0 atenolol (TENORMIN) 100 mg tablet Take 0.5 Tablet (50 mg) by mouth 2 times daily., Disp-10 Tablet, R-0 amoxicillin-clavulanate (AUGMENTIN) 875-125 mg tablet Take 1 Tablet by mouth every 12 hours. HYDROcodone-acetaminophen (NORCO) 5-325 mg tablet Take 1 Tablet by mouth every 4 hours as needed for Pain, Moderate. sucralfate (CARAFATE) 1 gram tablet Take 1 Tablet (1 Gram) by mouth 4 times daily before meals and at bedtime., Disp-21 Tablet, R-none ibuprofen (MOTRIN) 600 mg tablet Take 1 Tablet (600 mg) by mouth every 6 hours as needed for Pain, Mild., Disp-20 Tablet, R-None methylPREDNISolone (MEDROL, BIJU,) 4 mg Tablets, Dose Pack Medrol dose pack as directed., Disp-1 Package, R-None amoxicillin (AMOXIL) 500 mg capsule Take 1 Capsule (500 mg) by mouth 3 times daily., Disp-21 Capsule, R-None hyoscyamine 0.125 mg Tablet, Sublingual Place [...] 2 times daily as needed for Dizziness. albuterol 90 mcg/Actuation HFA inhaler Take 2 Puffs by inhalation every 6 hours as needed for Shortness of Breath. Follow Up: [facility], PHYSICIAN REFERRAL LINE [phone] In 1 week Diagnosis: Encounter Diagnoses Code Name Primary? Z76.5 Drug-seeking behavior Yes Disposition: Discharge This note has been prepared by Bertha Wallace acting as a scribe for Dr. Andrew Patterson on 08/02/2017 at 3:18 AM. The scribe's documentation has been prepared under my direction and personally reviewed by me, in its entirety on 08/02/17 at 5:20 AM. I confirm that the note above accurately reflects all work, treatment, procedures, and medical decision making performed by me. Note: This H+P was created with the aid of dictation software, thus there may be some word substitutions or errors. RACT ANALYST documented in this encounter Plan of Treatment Not on file documented as of this encounter Visit Diagnoses Diagnosis Drug-seeking behavior- Primary Other, mixed, or unspecified nondependent drug abuse, unspecified documented in this encounter
--- OUTSIDE RECORDS SUMMARY | 2024-09-10 04:20 | XMS_ITS | Encounter Summary ---
Author Organization [facility] Address [address] [place] [address] Care Team Providers Care Welder Plasma Arc Name Role Phone Unavailable Primary Care Provider Unavailabl e Reason for Visit * Reason Comments Anxiety pt. present to er d/ t anxiety, depression and PTSD. pt .stated, I am suppose to have next wednesday on my abd. and i am pretty anxious. I am also going to be out of work for the next 2 months. denies HI/Si Encounter Details Date Type Department Care Team (Late st Contact Info) Description 07/24/2017 10:42 PM INTERMEDIATE TEACHER - 07/24/2017 11:10 PM [facility] Emergency [facility] Emergency Department [address] [place] [id number] Tramaine Reyez MD [address] [place] [address] Depression with anxiety (Primary Dx) Discharge Disposition: Home or Self [...] Sign Reading Time Taken Comments Blood Pressure 131/89 07/24/2017 7:59 PM INTERMEDIATE TEACHER Pulse - - Temperature 36.9 ??C (98.4 ??F) 07/24/2017 7:59 PM CS T Respiratory Rate 18 07/24/2017 7:59 PM INTERMEDIATE TEACHER Oxygen Saturation 100% 07/24/2017 7:59 PM INTERMEDIATE TEACHER Inhaled Oxygen Concentration - - Weight 104.3 kg (230 lb) 07/24/2017 7:59 PM INTERMEDIATE TEACHER Height 188 cm (6' 2 ) 07/24/2017 7:59 PM INTERMEDIATE TEACHER Body Mass Index 29.53 07/24/2017 7:59 PM INTERMEDIATE TEACHER documented in this encounter Discharge Instructions * Discharge Instructions* Tramaine Reyez MD - 07/24/2017 11:06 PM INTERMEDIATE TEACHER You declined to be evaluated by behavioral health counselors today. Take all medications as prescribed. Return sooner for any other concerns. RMEDIATE TEACHER * Attachments The following attachments cannot be sent through Care Everywhere. * ANXIETY DISORDER (TAJIK) documented in this encounter Medications at Time of Discharge Medication Sig Dispensed Refills Start Date End Date omeprazole (PriLOSEC) 40 mg Capsule, Delayed Release(E.C.) Take 40 mg by mouth daily. ibuprofen (MOTRIN) 600 mg tablet Take 1 Tablet (600 mg) by mouth every 6 hours as needed for Pain, Mild. 20 Tablet None 10/30/2016 fluticasone (FLONASE) 50 mcg/spray Roosevelt, Suspension Administer 2 Sprays in each nostril [...] as of this encounter ED Notes * Lula Lindsey RN - 07/24/2017 11:09 PM CST Pt refused discharge teaching by this RN. Pt states ill be back tomorrow so you guys can admit me. web page designer at bedside with this RN for discharge RMEDIATE TEACHER * Lula Lindsey RN - 07/24/2017 11:00 PM CST MD at bedside LYN * Lula Lindsey RN - 07/24/2017 10:55 PM CST Pt to ER c/o anxiety. Pt has hx of PTSD/anxiety/depression. Pt reports he is having abdominal surgery to remove benign tumor from colon next Wednesday. He states to this RN im so scared, I've had surgery before but never something so serious. He also states to this RN I dont really have anyone to take care of me or any support . Pt aox4, speaking in clear sentences with ease. Respirations even and unlabored. Skin WDL. Pt calm and cooperative. RMEDIATE TEACHER * Lula Lindsey RN - 07/24/2017 10:49 PM CST Per Cam PCT, pt is refusing to change into scrubs at this time. Pt denies SI/HI. MD will evaluate for further need, per policy. All unnecessary equipment removed from room at this time. Pt states to PCT Im here for a med refill Pt on q15min rounding by PCT for safety precautions. RMEDIATE TEACHER * Tramaine Reyez MD - 07/24/2017 7:41 PM CST HISTORY OF PRESENT ILLNESS Carlos Mcgee, a 47 y.o. male presents to the ED with a Chief Complaint of Anxiety Subjective History provided by: The patient and medical records Arrived by: Private vehicle Arrived from: Home Anxiety The patient is a 47-year-old male with a history of anxiety and chronic benzodiazepine use/abuse who presents for evaluation of anxiety. He states he was recently diagnosed with a colon mass and is scheduled for surgery on Wednesday. He states this is causing him great anxiety and stress. He denies suicidal or homicidal ideation. He reports that he ran out of his benzodiazepine yesterday, roughly 24hours ago. He is requesting medication refill. He states that he was supposed to have an appointment to see Dr. Martinez a few weeks ago but that he was double booked and did not get to see a psychiatrist or have his medications refilled. Of note, the patient is well-known to me and the department for frequent visits with similar complaints. This is his third visit within the last 6 weeks reportedly out of benzodiazepines. REVIEW OF SYSTEMS Review of Systems At [...] Home Medications ALBUTEROL 90 MCG/ACTUATION HFA INHALER ALPRAZOLAM (XANAX) 2 MG TABLET AMOXICILLIN (AMOXIL) 500 MG CAPSULE AMOXICILLIN-CLAVULANATE (AUGMENTIN) 875-125 MG TABLET ATENOLOL (TENORMIN) [...] Encounter Objective PHYSICAL EXAM INITIAL VS BP: 131/89 (07/24/171958), Heart Rate: 68 bpm (07/24/171958), Resp: 18 (07/24/171958), Temp: 98.4 ??F (36.9 ??C) (07/24/171958), Temp src: Oral (07/24/171958), SpO2: 100 % (07/24/171958), Height: 6' 2 (188 cm) (07/24/171958), Weight: 104.3 kg (230 lb) (07/24/171958), BMI (Calculated): 29.52 (07/24/171958) No LMP for male patient. Physical Exam [...] is intact to light touch throughout. Psychiatric: flat effect, denies SI or HI. Reports severe anxiety about surgery. DIAGNOSTICS LAB: No data to display RADIOLOGY: No orders to display PROCEDURES Procedures MEDICAL DECISION MAKING AND PLAN OF CARE ED Course The patient is a 47-year-old male well-known to the department and myself for frequent visits for benzodiazepine refills. He always has a story about why he is out of the medications and unable to follow up with psychiatrist. He also states he never has a primary care physician either. Unfortunately recently diagnosed with colon mass. Scheduled for surgery on Wednesday. I've offered to have him evaluated by behavioral health counselors but he declines that. He declines outpatient referrals. He states he will come back tomorrow to hopefully see someone else. He will not be receiving a prescription for me tonight for benzodiazepines. MDM I have reviewed previous: notes I have reviewed nursing notes related to past medical history, social history, and review of systems and agree, unless otherwise noted. . New Prescriptions for this Encounter LAST VS BP: 131/89 (07/24/171958), Heart Rate: 68 bpm (07/24/171958), Resp: 18 (07/24/171958), Temp: 98.4 ??F (36.9 ??C) (07/24/171958), Temp src: Oral (07/24/171958), SpO2: 100 % (07/24/171958) CLINICAL IMPRESSION Final diagnoses: [F41.8] Depression with anxiety (Primary) DISPOSITION, EDUCATION AND MEDICATION RECONCILIATION Medications reconciled. See after visit summary for patient education on discharged patients. ED Disposition ED Disposition Condition User Date/Time Comment Discharge Tramaine Florence MD Sat Jul 24, 2017 11:04 PM ATTESTATION STATEMENTS This note was transcribed using [employer] speaking computerized voice recognition without a human industrial sweeper cleaner. This report may or may not have been adjusted for typographical, grammaticaland syntax errors. RMEDIATE TEACHER documented in this encounter Plan of Treatment Not on file documented as of this encounter Visit Diagnoses Diagnosis Depression with anxiety- Primary Dysthymic disorder documented in this encounter
--- OUTSIDE RECORDS SUMMARY | 2024-09-10 04:20 | XMS_ITS | Encounter Summary ---
Author Organization [employer] Address [address] [place] [address] Care Team Providers Care Stopper Maker Name Role Phone Unavailable Primary Care Provider Unavailabl e Reason for Visit * Reason Comments Abscess Pt complains of righ t sided dental swelling that three days ago. He was seen at an outside hospital where he was prescribed cipro which has provided no releif. He denies dental pain. He also complains of anxiety and report takings Xanax. He states I have an appointment on 10/09/16 and I just need Xanax till then because I thought the appointment was on the . He denies both SI/HI. He is calm and cooperative. * Auth/Cert Specialty Diagnoses / Procedures Referred By Redd mobley Referred To Contact Emergency Medicine [facility] Emergency Dept [address] [place] [address] Referral ID Status Reason Start Date Expiration Date Visits Re quested Visits Authorized [id number] 1 1 Encounter Details Date Type Department Care Team (Late st Contact Info) Description 10/04/2016 9:01 PM MEMBERSHIP SALES REPRESENTATIVE - 10/04/2016 10:39 PM [facility] Emergency [facility] Emergency Department [address] [place] [address] Jose Soto MD [address] [facility] [place] [address] Dental abscess (Primary Dx) Discharge Disposition: Home or Self [...] Sign Reading Time Taken Comments Blood Pressure 151/100 10/04/2016 8:51 PM MEMBERSHIP SALES REPRESENTATIVE Pulse - - Temperature 36.6 ??C (97.8 ??F) 10/04/2016 8:51 PM CS T Respiratory Rate 18 10/04/2016 8:51 PM MEMBERSHIP SALES REPRESENTATIVE Oxygen Saturation 99% 10/04/2016 8:51 PM MEMBERSHIP SALES REPRESENTATIVE Inhaled Oxygen Concentration - - Weight 111.1 kg (245 lb) 10/04/2016 8:51 PM MEMBERSHIP SALES REPRESENTATIVE Height 188 cm (6' 2 ) 10/04/2016 8:51 PM MEMBERSHIP SALES REPRESENTATIVE Body Mass Index 31.46 10/04/2016 8:51 PM MEMBERSHIP SALES REPRESENTATIVE documented in this encounter Discharge Instructions * Discharge Instructions* Jose Soto MD - 10/04/2016 10:05 PM MEMBERSHIP SALES REPRESENTATIVE DENTAL RESOURCES [facility] [phone] DENTAL SOCIETY [facility] [phone] [place] [phone] Provides dental referrals for care to individuals who are unable to visit traditional dental offices or who cannot afford to do so. [id number] [phone] [facility] [address] First visit $25. Next visit is according to income. Medicaid or sliding scale. Only do x-ray, Check-ups and fillings. [facility] [phone] [place] [address] Emergencies are seen immediately, but best to have an appointment. Fees are based on income. Medicaid insurance. [facility] [phone] [facility] [address] Free for seniors over 65 years of age, otherwise fee is payable by Medicaid, Medicare, or insurance. [facility]OS[facility]TE ANGELA [phone] [facility] [address] Walk-ins or people in pain. Fees are payable by Medicaid, insurance plans, or sliding scale. [facility] MCDUFFIE [phone] [address] [address] Emergencies are seen right away, but it is best to make an appointment. Fees are based on income. [facility] [phone] [address] Emergencies are seen right away, but it is best to make an appointment. Sliding scale fees. [facility] [phone] [address] [facility] [address] Must have an appointment. Fees are based on Income, Medicaid, Medicare, or sliding scale. [facility] [address] [facility] [phone] ERSHIP SALES REPRESENTATIVE documented in this encounter Medications at Time of Discharge Medication Sig Dispensed Refills Start Date End Date fluticasone (FLONASE) 50 mcg/spray Somis, Suspension Administer 2 Sprays in each nostril [...] daily as needed for Anxiety. 21 Tablet 10/04/2016 10/17/2016 omeprazole (PriLOSEC) 40 mg Capsule, Delayed Release(E.C.) Take 1 Capsule (40 mg) by mouth daily. 30 Capsule 09/12/2016 10/12/2016 CITALOPRAM HYDROBROMIDE (CELEXA ORAL) Take 40 mg by mouth . 02/25/2017 sucralfate (CARAFATE) 1 gram tablet Take 1 Gram by mouth 4 times daily before meals and at bedtime. 06/04/2017 acetaminophen (TYLENOL) 325 mg tablet Take 650 mg by mouth nightly as needed . 10/30/2016 documented as of this encounter ED Notes * Serafin Salcedo RN - 10/04/2016 10:11 PM CST at bedside for dispo. ERSHIP SALES REPRESENTATIVE * Serafin Salcedo RN - 10/04/2016 9:12 PM CST Patient is a 46 y/o male that comes in today complaining of right lower dental abcess. Patient states that he was initially treated with augmentin, but developed a rash. Patient states that he was then given cipro, but that he has trouble with his anxiety when he takes cipro. Patient states that hehas also been out of his xanax for a couple of days, and that he is having leg shaking and anxiety. Patient denies any pain with the dental abscess. Patient A&OX4. Airway clear, Breathing even an non-labored. Abdomen is soft and non-tender. Patient skin has color consistent with ethnicity, iswarm, dry, and patient has PMS x 4. ERSHIP SALES REPRESENTATIVE * Jose Soto MD - 10/04/2016 8:46 PM CST HISTORY OF PRESENT ILLNESS Carlos Mcgee, a 46 y.o. male presents to the ED with a Chief Complaint of Abscess Subjective HPI Comments: Documented Triage Chief Complaint: Abscess 9:30 PM: Carlos Mcgee is a 46 y.o. male with a history of anxiety, HTN, and DM, who presents tot Emergency Department for evaluation of right sided dental abscess x 3 days. The patient reports he ran out of his Xanax medication a few days ago, prescribed by his PCP. He thought his initial appointment with psychiatry was on 10/02, but in fact it is not until 10/09. He states he takes 2 mg TID chronically for his anxiety and panic attacks. The patient began experiencing tremors, nausea, and night sweats the past few days. Additionally, he states he was started on Augmentin for his dental abscess which resulted in hives and SOB. This was treated and he was started on Cipro. The patient feels his symptoms are worse with the Cipro medication and reports he has also been having confusion and increased jitteriness. He is concerned for side effects of Cipro and requests change in medication. Additionally, he is requesting a small quantity of Xanax to get him until his psychiatry appointment. He does not have a dentist for follow up. Pt has no other complaints at this time. Onset: gradual Severity: moderate Duration: 3 days Frequency/Progression: constant Radiation: none Associated symptoms: see above Physician(s): No primary care provider on file. History provided by: The patient REVIEW OF SYSTEMS Review of Systems Constitutional: Positive for diaphoresis. Negative for activity change, appetite change and fatigue. HENT: Positive for dental problem (R sided abscess). Negative for nosebleeds. Eyes: Negative for pain and itching. Respiratory: Negative for shortness of breath and wheezing. Cardiovascular: Negative for chest pain, palpitations and leg swelling. Gastrointestinal: Positive for nausea. Negative for abdominal pain and vomiting. Genitourinary: Negative for dysuria and hematuria. Musculoskeletal: Negative for back pain, myalgias and neck pain. Neurological: Positive for tremors ( jitteriness ). Negative for seizures and headaches. Psychiatric/Behavioral: Positive for confusion. Negative for agitation. The patient is nervous/anxious. PAST MEDICAL HISTORY [...] HOME MEDICATIONS Discharge Medication List as of 10/04/2016 10:05 PM START taking these medications Details amoxicillin (AMOXIL) 500 mg capsule Take 1 Capsule (500 mg) by mouth 3 times daily., Disp-21 Capsule, R-None ALPRAZolam (XANAX) 2 mg tablet Take 1 Tablet (2 mg) by mouth 3 times daily as needed for Anxiety., Disp-21 Tablet, R-0 CONTINUE these medications which have NOT CHANGED Details CITALOPRAM HYDROBROMIDE (CELEXA ORAL) Take by mouth. omeprazole (PriLOSEC) 40 mg Capsule, Delayed Release(E.C.) Take 1 Capsule (40 mg) by mouth daily., Disp-30 Capsule, R-0 fluticasone (FLONASE) 50 mcg/spray Somis, Suspension Administer 2 Sprays in each nostril [...] hours as needed for Shortness of Breath. STOP taking these medications ciprofloxacin HCl (CIPRO) 500 mg tablet Comments: Reason for Stopping: Objective PHYSICAL EXAM INITIAL VS BP: (!) 151/100 (10/04/162050), Heart Rate: 66 bpm (10/04/162050), Resp: 18 (10/04/162050), Temp: 97.8 ??F (36.6 ??C) (10/04/162050), Temp src: Oral (10/04/162050), SpO2: 99 % (10/04/162050), Height: 6' 2 (188 cm) (10/04/162050), Weight: 111.1 kg (245 lb) (10/04/162050), BMI (Calculated): 31.44 (10/04/162050) No LMP for male patient. Physical Exam Constitutional: He is oriented to person, place, and time. He appears well- developed and well-nourished. HENT: Head: Normocephalic and atraumatic. Swelling to gingiva of teeth #1 and 2 Eyes: Conjunctivae are normal. Pupils are equal, [...] AND PLAN OF CARE MDM Summary Statement: Will start patient on amoxicillin which patient has tolerated in the past and patient given dental referrals. Will also write patient for Xanax to cover him until he sees Dr. Martinez in one week. I have reviewed previous: notes I have reviewed nursing notes related to past medical history, social history, and review of systems and agree, unless otherwise noted. ED Course Discharge Medication List as of 10/04/2016 10:05 PM START taking these medications Details amoxicillin (AMOXIL) 500 mg capsule Take 1 Capsule (500 mg) by mouth 3 times daily., Disp-21 Capsule, R-None ALPRAZolam (XANAX) 2 mg tablet Take 1 Tablet (2 mg) by mouth 3 times daily as needed for Anxiety., Disp-21 Tablet, R-0 CONTINUE these medications which have NOT CHANGED Details CITALOPRAM HYDROBROMIDE (CELEXA ORAL) Take by mouth. omeprazole (PriLOSEC) 40 mg Capsule, Delayed Release(E.C.) Take 1 Capsule (40 mg) by mouth daily., Disp-30 Capsule, R-0 fluticasone (FLONASE) 50 mcg/spray Somis, Suspension Administer 2 Sprays in each nostril [...] hours as needed for Shortness of Breath. STOP taking these medications ciprofloxacin HCl (CIPRO) 500 mg tablet Comments: Reason for Stopping: LAST VS BP: (!) 151/100 (10/04/162050), Heart Rate: 66 bpm (10/04/162050), Resp: 18 (10/04/162050), Temp: 97.8 ??F (36.6 ??C) (10/04/162050), Temp src: Oral (10/04/162050), SpO2: 99 % (10/04/162050) CLINICAL IMPRESSION Final diagnoses: [K04.7] Dental abscess (Primary) DISPOSITION, EDUCATION AND MEDICATION RECONCILIATION Medications reconciled. See after visit summary for patient education on discharged patients. Follow up: Rizwan Ortiz MD [address] [facility] [address] Schedule an appointment as soon as possible for a visit in 1 week(s) Keep appt. DISCHARGED TO HOME in stable condition. ATTESTATION STATEMENTS This note has been prepared by Tami Olivo acting as a scribe for Dr. Jose Soto on 10/04/2016 at 10:01 PM. The scribe's documentation has been prepared under my direction and personally reviewed by me, Andres, in its entirety on 10/05/16 at 9:52 AM. I confirm that the note above accurately reflectsall work, treatment, procedures, and medical decision making performed by me. ERSHIP SALES REPRESENTATIVE documented in this encounter Plan of Treatment Not on file documented as of this encounter Visit Diagnoses Diagnosis Dental abscess- Primary Periapical abscess without sinus documented in this encounter
--- OUTSIDE RECORDS SUMMARY | 2024-09-10 04:20 | XMS_ITS | Encounter Summary ---
Author Organization [employer] Address 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 Takes lexapro and xanax. Neuro assessment unremarkable. No facial droop. Denies SI/HI. Calm and cooperative. Has tried excedrin without relief, states its just making me more nervous . Has follow up appointment with psychiatrist mid september. * Auth/Cert Specialty Diagnoses / Procedures Referred By Redd mobley Referred To Contact Emergency Medicine [facility] Emergency Dept [address] [place] [address] Referral ID Status Reason Start Date Expiration Date Visits Re quested Visits Authorized [id number] 1 1 Encounter Details Date Type Department Care Team (Late st Contact Info) Description 08/29/2017 8:04 PM HOSPITAL NURSE LIAISON - 08/29/2017 9:37 PM [facility] Emergency [facility] Emergency Department [address] [place] [address] Hamida Mcfadden MD [address] [place] [address] Drug-seeking behavior (Primary Dx); Chronic anxiety; Encounter for medication refill Discharge Disposition: Home [...] Sign Reading Time Taken Comments Blood Pressure 138/77 08/29/2017 9:30 PM HOSPITAL NURSE LIAISON Pulse - - Temperature 36.2 ??C (97.2 ??F) 08/29/2017 7:40 PM CS T Respiratory Rate 18 08/29/2017 9:30 PM HOSPITAL NURSE LIAISON Oxygen Saturation 95% 08/29/2017 9:30 PM HOSPITAL NURSE LIAISON Inhaled Oxygen Concentration - - Weight 104.3 kg (230 lb) 08/29/2017 7:40 PM HOSPITAL NURSE LIAISON Height 188 cm (6' 2 ) 08/29/2017 7:40 PM HOSPITAL NURSE LIAISON Body Mass Index 29.53 08/29/2017 7:40 PM HOSPITAL NURSE LIAISON documented in this encounter Discharge Instructions * Attachments The following attachments cannot be sent through Care Everywhere. * Anxiety Disorder ([place]) documented in this encounter Medications at Time of Discharge Medication Sig Dispensed Refills Start Date End Date omeprazole (PriLOSEC) 40 mg Capsule, Delayed Release(E.C.) Take 40 mg by mouth daily. ibuprofen (MOTRIN) 600 mg tablet Take 1 Tablet (600 mg) by mouth every 6 hours as needed for Pain, Mild. 20 Tablet None 10/30/2016 fluticasone (FLONASE) 50 mcg/spray [place], Suspension Administer 2 Sprays in each nostril [...] 08/16/2017 11/24/2018 documented as of this encounter ED Notes * Lucas Griffith RN - 08/29/2017 9:30 PM CST Patient refused to sign his discharge paperwork stating I'm not going to sign that because I wasn't properly treated here. Patient had earlier become upset when Dr. Mcfadden informed him that she would not being prescribing him any anxiety medications today as he recently had several Xanax prescriptions filled, in several different pharmacies, by several different physicians. Therapeutic communication and patient education attempted as appropriate. ITAL NURSE LIAISON * Alba Franco RN - 08/29/2017 9:[address] Mcfadden and this RN @ BS explaining discharge. Pt given water. ITAL NURSE LIAISON * Alba Franoc RN - 08/29/2017 8:55 PM CST This RN reviewed and agrees With cherelle note: 47 yom presents to ED with c/o headaches x2 days andincreased anxiety, states I was here a couple days ago and seen for anxiety, I am out of meds . Takes lexapro and xanax. Neuro assessment unremarkable. No facial droop. Denies SI/HI. Calm and cooperative. Has tried excedrin without relief, states its just making me more nervous . Has follow up appointment with psychiatrist mid september. AOx4. RR even and unlabored on RA. Skin PWD. Palpable pulses. Pt denied being seen by behavioral health. ITAL NURSE LIAISON * Alba Franco RN - 08/29/2017 8:[address] Mcfadden @ BS for eval. ITAL NURSE LIAISON * Ryland Pyle - 08/29/2017 8:21 PM CST Carlos Mcgee is a 47 y.o. male was brought into treatment room 16. Per department policy patient changed into paper scrubs. Patient is calm and cooperative. Patient belongings removed from room. Belongings included: 1 pair of athletic shoes, 1 green jacket, a pair of blue jeans, a hagan t-shirt, a cell phone, Excedrin, and a money clip with $35 and some change. PT denies other valuables at this time. Belongings secured in locker W 2. LYN * Hamida Mcfadden MD - 08/29/2017 7:37 PM CST Images from the original note were not included. Emergency Department Attending Physician Note Seen in the ED by Dr. Hamida Mcfadden MD History of Present Illness Documented Triage Chief Complaint: Anxiety Subjective Provider was at the bedside at 8:36 PM Carlos Mcgee is a 47 y.o. male who presents with increasing anxiety and headaches for the past 2 days. He also complains of right upper dental pain, diaphoresis, and nausea with an episode of vomiting on 08/27. He states I was here a couple days ago and seen for anxiety, I am out of meds , Lexapril and xanax 2mg 3 daily, and has a follow up with his psychiatrist mid September. He states that he took his last xanax 8 hour ago. He also reports that he was recently seen by [facility] for a fractured tooth and at urgent care with antibiotics for sinusitis. He reports that he has takenExcedrin, ibuprofen, and tylenol for his current symptoms without relief. He denies SI/HI. Patient r equests a specific ER doctor (not myself) to refill his anxiety medicaitons. Timing: gradual Severity: mild Duration: Recurrent Frequency: Constant Progression: Worsening Quality: psychiatric Modifiers: On 2 mg Xanax 3x daily Associated symptoms: see above Mode of Arrival: private transportation Primary Care Doctor: No primary care provider on file. Patient information was obtained from primarily from the patient, History/Exam limitations: none Review of Systems ?? A comprehensive review of systems was completed. All other systems negative except as marked. ?? See HPI for additional ROS Review of Systems Constitutional: Positive for diaphoresis. Negative for chills and fever. HENT: Positive for dental problem (right sided upper dental pain). Negative for congestion. Respiratory: Negative for cough and shortness of breath. Cardiovascular: Negative for chest pain and leg swelling. Gastrointestinal: Positive for nausea and vomiting (x1, resolved). Negative for abdominal pain and diarrhea. Endocrine: Negative for polydipsia. Genitourinary: Negative for dysuria. Musculoskeletal: Negative for myalgias. Allergic/Immunologic: Negative for immunocompromised state. Neurological: Positive for headaches. Psychiatric/Behavioral: Negative for suicidal ideas. The patient is nervous/anxious. Relevant Medical History Past Medical History: Patient Past Medical History: Diagnosis Date ??? Anxiety ??? Chronic neck pain ??? Depression anxiety ??? Diabetes ??? Diverticulitis ??? HTN (hypertension) ??? Panic attacks ??? PTSD (post-traumatic stress disorder) Past Surgical History: Patient Past Surgical History: Procedure Laterality Date ??? CHG ANES REMOVAL GALLBLADDER ??? HX CHOLECYSTECTOMY Family History: Patient's family history includes Diabetes in his maternal grandfather and maternal grandmother; Other in his father; Stroke in his father. Social History: Patient reports that he quit smoking about 21 years ago. His smoking use included Cigarettes. He has a 2.00 pack-year smoking history. He has never used smokeless tobacco. He reports that he does notdrink alcohol or use drugs. Social History Other Topics Concern ??? Not on file Problems List: Patient has Cervical stenosis of spinal canal; [...] and Tooth infection on his problem list. Allergies: Bactrim [sulfamethoxazole-trimethoprim]; Bystolic [nebivolol]; Carvedilol; Clindamycin; Clonidine; Contrast [iodinated contrast- oral and iv dye]; Hydralazine; Levaquin [levofloxacin]; Lidocaine; Lisinopril; Morphine; Paxil [paroxetine hcl]; Pepcid [famotidine]; Percocet [oxycodone-acetaminophen]; Sulfa (sulfonamide antibiotics); and Uroseptic ds Home Medications: Patient's Home Medications Current Home Medications ALBUTEROL 90 MCG/ACTUATION HFA INHALER ALPRAZOLAM (XANAX) 1 MG TABLET AMOXICILLIN (AMOXIL) 875 MG TABLET AMOXICILLIN-CLAVULANATE (AUGMENTIN) 875-125 MG TABLET ATENOLOL (TENORMIN) 100 MG TABLET CITALOPRAM (CELEXA) 40 MG TABLET ESCITALOPRAM OXALATE (LEXAPRO) 20 MG TABLET FLUTICASONE (FLONASE) 50 MCG/SPRAY SPRAY, SUSPENSION HYDROCODONE-ACETAMINOPHEN (NORCO) 5-325 MG TABLET HYOSCYAMINE 0.125 MG TABLET, SUBLINGUAL IBUPROFEN (MOTRIN) 600 MG TABLET MECLIZINE (ANTIVERT) 25 MG TABLET METHYLPREDNISOLONE (MEDROL, BIJU,) 4 MG TABLETS, DOSE PACK OMEPRAZOLE (PRILOSEC) 40 MG CAPSULE, DELAYED RELEASE(E.C.) ONDANSETRON (ZOFRAN ODT) 4 MG TABLET, RAPID DISSOLVE PROMETHAZINE (PHENERGAN) 25 MG TABLET RANITIDINE (ZANTAC) 150 MG TABLET SUCRALFATE (CARAFATE) 1 GRAM TABLET VERAPAMIL (CALAN) 40 MG TABLET Medications Modified during this Encounter Medications Discontinued during this Encounter Objective Physical Exam BP: (!) 148/81 (08/29/171939), Pulse: (not recorded), Resp: 18 (08/29/171939), Temp: 97.2 ??F (36.2 ??C) (08/29/171939), Temp src: Oral (08/29/171939) Physical Exam Constitutional: He is oriented to person, place, and time. No distress. HENT: Head: Normocephalic. Mouth/Throat: Dental caries present. Eyes: EOM are normal. Neck: Normal range of motion. Cardiovascular: Normal rate, regular rhythm and normal heart sounds. Pulmonary/Chest: Effort normal and breath sounds normal. No respiratory distress. Abdominal: Soft. There is no tenderness. Musculoskeletal: Normal range of motion. He exhibits no edema. Neurological: He is alert and oriented to person, place, and time. He has normal strength. No cranial nerve deficit. Coordination normal. Skin: Skin is warm, dry and intact. Psychiatric: His speech is normal and behavior is normal. Judgment normal. His mood appears anxious. His affect is blunt. He is not actively hallucinating. Cognition and memory are normal. He expresses no homicidal and no suicidal ideation. He expresses no homicidal plans. Nursing note and vitals reviewed. Studies and Interpretation Pulse Oximetry Interpretation: Saturation: SpO2: 100 % (08/29/17 1940)] Oxygen Delivery: room air Interpretation: No hypoxia at this time. Labs: (Reviewed by myself), Significant for: No data to display Imaging (all imaging was independently reviewed by myself): No orders to display Critical Care / Procedures No critical care or procedures performed at this time.?? Medical Decision Making and ED Course ED Course Patient seen and examined by me. Differentials include: chronic anxiety, drug seeking behavior, medication refill Initial treatment includes: , offered Behavioral Health evaluation. Per chart review, patient was seen here on 08/16/17 and given 40 tablets of xanax at that time. No new medications at that time. Patient with no signs or symptoms of withdrawal. vitals are normal. Patient has been seen multiple times for similar complaints. This is his 4th visit in a month for running out of benzodiazepines. He declines Behavioral Health referral. Patient was informed that he willnot be given any Benzodiazepenes and that the ER was not a place to refill medication. [facility], contacted [facility] pharmacy in [place], [place] Noted patient filled prescriptions from the last month.: 08/16, 40 tablets 1 mg Xanax from [facility]. 08/18, 8 tablets 1 mg Xanax from [facility]. 08/04, 20 tablets Diazepam [facility]. 08/02, 22 tablets 2 mg Xanax from [facility]. 07/16, tablets, 2 mg Xanax from Medicaid [place] Patient was very upset when presented with this information. This was a difficult patient encounter. The patient's expectations as to management were not able to be met given the guidelines by the state, hospital guidelines, and patient's personal care guidelines. I discussed at length with the patient my concerns and offered treatment options that were in keeping with our policies and procedures. Unfortunately, this did not alleviate the patient's concerns. At all times myself and staff were respectful of the patient, attempted to solve their issues within our constraints, and treated the patient with all due courtesy. Unfortunately, the patient left disappointed as to their expectations. I encouraged them to follow up with their primary care provider for further treatment and to return to the ED if they had any other symptoms or concerns. Further Management Decisions and Complexity --Triage notes and available nursing notes reviewed, vitals reviewed. -- I agree with the nursing notes reviewed unless noted in the body of this record. --Clinical lab tests: ordered and reviewed in detail by myself prior to discharge/admission --Independent visualization of any images, tracings, or specimens (including EKGs, Labs) performed by myself: yes --Attempted to obtain, review and summarize past medical records: yes --Previous electrocardiograms reviewed: no --Discussed the patient with other providers: yes --I reviewed and interpreted all of the diagnostic tests ordered on the patient. The results of these tests were discussed with the patient/family in detail and all questions were answered to the patient's apparent satisfaction. Medications Ordered/Given New Medications . New Prescriptions for this Encounter Final diagnoses: [F41.9] Chronic anxiety [Z76.0] Encounter for medication refill [Z76.5] Drug-seeking behavior (Primary) Final Disposition Vitals at Disposition: BP (!) 148/81 (BP Location: Right arm, Patient Position (BP): Sitting) Temp 97.2 ??F (36.2 ??C) (Oral) Resp 18 Ht 6' 2 (1.88 m) Wt 104.3 kg (230 lb) SpO2 100% BMI 29.53 kg/m?? Patient to be discharged in stable condition Attestation Statement This note has been prepared by Kimberly Sanz acting as a scribe for Dr. Hamida Mcfadden on 08/29/2017 at 9:35 PM. The scribe's documentation has been prepared under my direction and personally reviewed by me, Hamida Mcfadden, in its entirety on 08/29/17 at 9:35 PM. I confirm that the note above accurately reflects all work, treatment, procedures, and medical decision making performed by me. Note: This H+P was created with the aid of dictation software, thus there may be some word substitutions or errors. ITAL NURSE LIAISON documented in this encounter Plan of Treatment Not on file documented as of this encounter Visit Diagnoses Diagnosis Drug-seeking behavior- Primary Other, mixed, or unspecified nondependent drug abuse, unspecified Chronic anxiety Anxiety state, unspecified Encounter for medication refill Issue of repeat prescriptions documented in this encounter
--- OUTSIDE RECORDS SUMMARY | 2024-09-10 04:20 | XMS_ITS | Encounter Summary ---
Author Organization [facility] Address [address] [place] [address] Care Team Providers Care Human Resources Trainer Name Role Phone Unavailable Primary Care Provider Unavailabl e Reason for Visit * Reason Onset Date Comments Esophageal Reflux 02/27/2018 Encounter Details Date Type Department Care Team (Late st Contact Info) Description 02/27[facility] internal control manager [address] [place] [address] Velia Covington RN Social History [...] Telephone Encounter - Velia Covington RN - 02/27/2018 1:44 AM CDT Reason for Disposition ??? Pain is mainly in upper abdomen (if needed ask: is it mainly above the belly button? ) ??? [1] MODERATE pain (e.g., interferes with normal activities) AND [2] comes and goes (cramps) AND[3] present > 24 hours (Exception: pain with Vomiting or Diarrhea - see that Guideline) Protocols used: ABDOMINAL PAIN - MALE-A-AH, ABDOMINAL PAIN - UPPER-A-AH * Telephone Encounter - Velia Covington RN - 02/27/2018 1:32 AM CDT Regarding: Sour stomach and nausea ----- Message from Parris Hylton RN sent at 02/27/2018 1:07 AM CDT ----- Nausea and belching, sour burning stomach. (Medication change) Chills. Patient's [address] on [address]: [address] [place] [id number] Patient's current location: Same as above documented in this encounter Plan of Treatment Not on file documented as of this encounter Visit Diagnoses Not on filedocumented in this encounter
--- OUTSIDE RECORDS SUMMARY | 2024-09-10 04:20 | XMS_ITS | Encounter Summary ---
Author Organization [facility] Address [address] [place] [address] Care Team Providers Care Mill Labor Supervisor Name Role Phone Unavailable Primary Care Provider Unavailabl e Reason for Visit * Reason Comments Neck Pain PT arrived to the ED with c/o left sided neck pain and jaw pain. Pt was being seen by a chiropractor on Wednesday and yesterday . Pt also is c/o anxiety . PT denies any fevers or chest pain. PT is c/o nubmess / tingling in the left hand. * Auth/Cert Specialty Diagnoses / Procedures Referred By Redd mobley Referred To Contact Emergency Medicine [facility] Emergency Dept [address] [place] [address] Referral ID Status Reason Start Date Expiration Date Visits Re quested Visits Authorized [id number] 1 1 Encounter Details Date Type Department Care Team (Late st Contact Info) Description 10/30/2016 8:13 PM COAL TRAMMER - 10/30/2016 8:49 PM [facility] Emergency [facility] Emergency Department [address] [place] [address] Dave Jaocb MD NO ADDRESS ON FILE Neck pain on left side (Primary Dx) Discharge Disposition: Left without being seen Social [...] Sign Reading Time Taken Comments Blood Pressure 133/90 10/30/2016 7:41 PM [facility] Pulse - - Temperature 37.2 ??C (99 ??F) 10/30/2016 7:41 PM COAL TRAMMER Respiratory Rate 22 10/30/2016 7:41 PM COAL TRAMMER Oxygen Saturation 99% 10/30/2016 7:41 PM COAL TRAMMER Inhaled Oxygen Concentration - - Weight 106.6 kg (235 lb) 10/30/2016 6:13 PM COAL TRAMMER Height 188 cm (6' 2 ) 10/30/2016 6:13 PM COAL TRAMMER Body Mass Index 30.17 10/30/2016 6:13 PM COAL TRAMMER documented in this encounter Discharge Instructions * Discharge Instructions* Dave Jacob MD - 10/30/2016 8:34 PM COAL TRAMMER Follow up with referral line. Use tylenol for pain. Follow up in the ER with worsening symptoms. TRAMMER * Attachments The following attachments cannot be sent through Care Everywhere. * CERVICAL PAIN (TAJIK) * CERVICAL RADICULOPATHY (TAJIK) documented in this encounter Medications at Time of Discharge Medication Sig Dispensed Refills Start Date End Date ibuprofen (MOTRIN) 600 mg tablet Take 1 Tablet (600 mg) by mouth every 6 hours as needed for Pain, Mild. 20 Tablet None 10/30/2016 fluticasone (FLONASE) 50 mcg/spray [place], Suspension Administer 2 Sprays in each nostril [...] hours as needed for Shortness of Breath. acetaminophen (TYLENOL) 325 mg tablet Take 2 Tablet (650 mg) by mouth every 6 hours as needed for Pain. 20 Tablet none 10/30/2016 11/06/2016 ALPRAZolam (XANAX) 2 mg tablet Take 1 Tablet (2 mg) by mouth 3 times daily as needed for Anxiety. 21 Tablet 10/17/2016 02/25/2017 CITALOPRAM HYDROBROMIDE (CELEXA ORAL) Take 40 mg by mouth . 02/25/2017 sucralfate (CARAFATE) 1 gram tablet Take 1 Gram by mouth 4 times daily before meals and at bedtime. 06/04/2017 documented as of this encounter ED Notes * Stanton Gloria PCA - 10/30/2016 8:49 PM CST Bed: H01 Expected date: Expected time: Means of arrival: Comments: Clean TRAMMER * Sarwat Dillon RN - 10/30/2016 8:48 PM CST Pt eloped TRAMMER * Sarwat Dillon RN - 10/30/2016 8:35 PM CST Pt to ED with reports of left sided and posterior neck pain that he attributes to chronic arthritis. Pt reports that his chiropracter adjusted him on Wednesday and then he began to develop jaw pain from being adjusted roughly. Pt also reports tingling in left fingers, capillary refill equal bilaterally and within defined limits, motor and sensation equal bilaterally. Pt is alert and oriented and is also expressing increasing anxiety for the past several weeks and he feels like he is going to gointo a withdrawal if he doesn't get some medications. VS are stable, will continue to monitor. TRAMMER * Corrina Plaza - 10/30/2016 7:43 PM CST Pt complains of dizziness and pain; denies nausea. PCT offered a tub in case of vomiting and a stretcher to lie down. Pt denied interventions. TRAMMER * Dave Jacob MD - 10/30/2016 6:04 PM CST HISTORY OF PRESENT ILLNESS Carlos Kelly, a 46 y.o. male presents to the ED with a Chief Complaint of Neck Pain Subjective HPI Comments: Pt here with multiple complaints. Pt with left sided neck pain. Pain down left arm. Has been there for years worse over last 2 weeks. Has seen chiropracter X 2. Pt reports pain with movement. No numbness tingling. No weakness. Pt quickly turned to needing xanax. PT states feels anxious. Pt does not appear anxious. No HI or SI. States was unable to get into psychiatrist or {PMD. Neck Pain REVIEW OF SYSTEMS Review of Systems Constitutional: Negative. HENT: Negative. Eyes: Negative. Respiratory: Negative. Cardiovascular: Negative. Endocrine: Negative. Genitourinary: Negative. Musculoskeletal: Positive for neck pain. Allergic/Immunologic: Negative. PAST MEDICAL HISTORY REVIEWED MEDICAL: Patient has [...] HOME MEDICATIONS Discharge Medication List as of 10/30/2016 8:41 PM START taking these medications Details ibuprofen (MOTRIN) 600 mg tablet Take 1 Tablet (600 mg) by mouth every 6 hours as needed for Pain, Mild., Disp-20 Tablet, R-None methylPREDNISolone (MEDROL, BIJU,) 4 mg Tablets, Dose Pack Medrol dose pack as directed., Disp-1 Package, R-None CONTINUE these medications which have CHANGED Details acetaminophen (TYLENOL) 325 mg tablet Take 2 Tablet (650 mg) by mouth every 6 hours as needed for Pain., Disp-20 Tablet, R-none CONTINUE these medications which have NOT CHANGED Details ALPRAZolam (XANAX) 2 mg tablet Take 1 Tablet (2 mg) by mouth 3 times daily as needed for Anxiety., Disp-21 Tablet, R-0 amoxicillin (AMOXIL) 500 mg capsule Take 1 Capsule (500 mg) by mouth 3 times daily., Disp-21 Capsule, R-None CITALOPRAM HYDROBROMIDE (CELEXA ORAL) Take by mouth. fluticasone (FLONASE) 50 mcg/spray [place], Suspension Administer 2 Sprays in each nostril [...] Objective PHYSICAL EXAM INITIAL VS BP: (!) 148/90 (10/30/161812), Heart Rate: 72 bpm (10/30/161812), Resp: 18 (10/30/161812), Temp:98.2 ??F (36.8 ??C) (10/30/161812), Temp src: Oral (10/30/161812), SpO2: 98 % (10/30/161812), Height: 6' 2 (188 cm) (10/30/161812), Weight: 106.6 kg (235 lb) (10/30/161812), BMI (Calculated): 30.16 (10/30/161812) No LMP for male patient. Physical Exam Constitutional: He appears well-developed and well-nourished. CAlm. Sitting in bed. No external signs of anxiety. HENT: Head: Normocephalic. Eyes: Right eye exhibits no discharge. Left eye exhibits no discharge. Neck: No ttp. Cardiovascular: Normal rate, regular rhythm and normal heart sounds. Pulses: Radial pulses are 2+ on the right side, and 2+ on the left side. Pulmonary/Chest: Effort normal and breath sounds normal. No respiratory distress. He has no wheezes. Abdominal: Soft. Bowel sounds are normal. He exhibits no distension. There is no tenderness. Musculoskeletal: Normal range of motion. Nursing note and vitals reviewed. DIAGNOSTICS LAB: Labs this ED Encounter - No data to display RADIOLOGY: No orders to display EKG: PROCEDURES Procedures MEDICAL DECISION MAKING AND PLAN OF CARE MDM Summary Statement: Neck pain, radiculopathy. NO red flags to suggest need for emergent imaging. Of note, patient immediately asking for xanax on my arrival to room. I discussed with patient on last visit that we would not give him more xanax. I also don't feel comfortable giving him narcotics. Will discharge. ED Course Discharge Medication List as of 10/30/2016 8:41 PM START taking these medications Details ibuprofen (MOTRIN) 600 mg tablet Take 1 Tablet (600 mg) by mouth every 6 hours as needed for Pain, Mild., Disp-20 Tablet, R-None methylPREDNISolone (MEDROL, BIJU,) 4 mg Tablets, Dose Pack Medrol dose pack as directed., Disp-1 Package, R-None CONTINUE these medications which have CHANGED Details acetaminophen (TYLENOL) 325 mg tablet Take 2 Tablet (650 mg) by mouth every 6 hours as needed for Pain., Disp-20 Tablet, R-none CONTINUE these medications which have NOT CHANGED Details ALPRAZolam (XANAX) 2 mg tablet Take 1 Tablet (2 mg) by mouth 3 times daily as needed for Anxiety., Disp-21 Tablet, R-0 amoxicillin (AMOXIL) 500 mg capsule Take 1 Capsule (500 mg) by mouth 3 times daily., Disp-21 Capsule, R-None CITALOPRAM HYDROBROMIDE (CELEXA ORAL) Take by mouth. fluticasone (FLONASE) 50 mcg/spray [place], Suspension Administer 2 Sprays in each nostril [...] Shortness of Breath. LAST VS BP: (!) 133/90 (10/30/161940), Heart Rate: 72 bpm (10/30/161940), Resp: 22 (10/30/161940), Temp:99 ??F (37.2 ??C) (10/30/161940), Temp src: Oral (10/30/161940), SpO2: 99 % (10/30/161940) CLINICAL IMPRESSION Final diagnoses: [M54.2] Neck pain on left side (Primary) DISPOSITION, EDUCATION AND MEDICATION RECONCILIATION Medications reconciled. See after visit summary for patient education on discharged patients. ATTESTATION STATEMENTS TRAMMER documented in this encounter Plan of Treatment Not on file documented as of this encounter Procedures Procedure Name Priority Date/Time Associated Diagnosis Comments EKG 12-LEAD Stat 10/30/2016 6:32 PM COAL TRAMMER documented in this encounter Results * EKG 12-LEAD (10/30/2016 6:32 PM COAL TRAMMER) 10/30/2016 6:32 PM COAL TRAMMER Narrative INTERFACE SYSTEM - 10/30/2016 6:56 PM COAL TRAMMER ? Stationary ECG Study ? [facility] ? Test Date: ?10/30/2016 6:32 PM Pat Name: ? CARLOS KELLY ? Department: ?? 15 ?Room: ? Gender: ? M ?[employer] Supervisor: ?? tabot1 : ?1970 ? Requested By: ?? Order Number: [id number] ?Reading MD: ?? Jone Crocker ? Measurements Intervals ?[place] ? Rate: ? 72 ? P: ?1 OK: ? 156 ?QRS: ?27 QRSD: ? 96 ? T: ?7 QT: ? 365 ? QTc: ?401 ? Interpretive Statements ? SINUS RHYTHM NONSPECIFIC T-WAVE ABNORMALITY Electronically Signed On 10-30-2016 18:56:10 COAL TRAMMER by Jone Crocker Procedure Note Jone Crocker MD - 11/19/2021 Stationary ECG Study [facility] Test Date: 10/30/2016 6:32 PM Pat Name: CARLOS KELLY Department: 15 Room: Gender: [employer] Supervisor: tabot : 1970 Requested By: Order Number: [id number] Reading MD: Jone Crocker Measurements Intervals [place] Rate: 72 P: 1 OK: 156 QRS: 27 QRSD: 96 T: 7 QT: 365 QTc: 401 Interpretive Statements SINUS RHYTHM NONSPECIFIC T-WAVE ABNORMALITY Electronically Signed On 10-30-2016 18:56:10 COAL TRAMMER by Jone Crocker Dave Jacob MD ECG ORDERABLES INTERFACE SYSTEM Refer to clinic/hospital department documented in this encounter Visit Diagnoses Diagnosis Neck pain on left side- Primary Cervicalgia documented in this encounter
--- OUTSIDE RECORDS SUMMARY | 2024-09-10 04:20 | XMS_ITS | Encounter Summary ---
Author Organization [employer] Address [address] [place] [address] Care Team Providers Care Assayer Helper Name Role Phone Unavailable Primary Care Provider Unavailabl e Reason for Visit * Reason Onset Date Comments Abdominal Pain 01/17/2018 Encounter Details Date Type Department Care Team (Late st Contact Info) Description [facility]/17[facility] meteorologist liaison [address] [place] [address] Velia Covington RN Social History [...] Encounter - Velia Covington RN - 01/17/2018 3:41 AM CDT Reason for Disposition ? ? [1] MILD-MODERATE pain AND [2] constant AND [3] present > 2 hours Protocols used: ABDOMINAL PAIN - MALE-A-AH * Telephone Encounter - Velia Covington RN - 01/17/2018 3:35 AM CDT Regarding: stomach cramps ----- Message from Velia Covington RN sent at 01/17/2018 3:35 AM CDT ----- Patient's address on [address]: [address] [place] [address] Patient's current location: Same as above documented in this encounter Plan of Treatment Not on file documented as of this encounter Visit Diagnoses Not on filedocumented in this encounter
--- OUTSIDE RECORDS SUMMARY | 2024-09-10 04:20 | XMS_ITS | Encounter Summary ---
Author Organization [employer] Address [address] [place] [address] Care Team Providers Care Staff Development Nurse Name Role Phone Unavailable Primary Care Provider Unavailabl e Reason for Visit * Reason Comments Anxiety pt arrives reporting this he is out of his psych meds and having anxiety, denies any SI or HI * Auth/Cert Specialty Diagnoses / Procedures Referred By Redd mobley Referred To Contact Emergency Medicine [facility] Emergency Dept [address] [place] [address] Referral ID Status Reason Start Date Expiration Date Visits Re quested Visits Authorized [id number] 1 1 Encounter Details Date Type Department Care Team (Late st Contact Info) Description 04/22/2018 2:47 AM CDT - 04/22/2018 4:33 AM CDT Emergency [facility] Emergency Department [address] [place] [address] Ryland Virgen MD [address] [place] [address] Depression with anxiety (Primary Dx) [...] Sign Reading Time Taken Comments Blood Pressure 146/98 04/22/2018 2:45 AM CDT Pulse - - Temperature 36.8 ??C (98.3 ??F) 04/22/2018 2:45 AM CD T Respiratory Rate 18 04/22/2018 2:45 AM CDT Oxygen Saturation 99% 04/22/2018 2:45 AM CDT Inhaled Oxygen Concentration - - Weight 106.6 kg (235 lb) 04/22/2018 2:45 AM CDT Height 188 cm (6' 2 ) 04/22/2018 2:45 AM CDT Body Mass Index 30.17 04/22/2018 2:45 AM CDT documented in this encounter Discharge Instructions * Attachments The following attachments cannot be sent through Care Everywhere. * Anxiety Disorder (Gabonese) documented in this encounter Medications at Time of Discharge Medication Sig Dispensed Refills Start Date End Date omeprazole (PriLOSEC) 40 mg Capsule, Delayed Release(E.C.) Take 40 mg by mouth daily. ibuprofen (MOTRIN) 600 mg tablet Take 1 Tablet (600 mg) by mouth every 6 hours as needed for Pain, Mild. 20 Tablet None 10/30/2016 fluticasone (FLONASE) 50 mcg/spray [place], Suspension Administer 2 Sprays in each nostril [...] times daily as needed for Anxiety. 15 Tablet 04/22/2018 05/21/2018 escitalopram oxalate (LEXAPRO) 20 mg tablet Take 1 Tablet (20 mg) by mouth daily. 30 Tablet 1 08/16/2017 11/24/2018 documented as of this encounter ED Notes * Dai Lam, RN - 04/22/2018 4:31 AM CDT Pt given belongings and walked to car to obtain prescription for Valium that pt was given earlier today at [facility]. Pt brought prescription in and MD Virgen tore up prescription and it was placed in the shredder. * Dai Lam RN - 04/22/2018 3:31 AM CDT MD at bedside for assessment. * Maia Miller RN - 04/22/2018 3:01 AM CDT Pt presents with medication concerns. Pt says he wants to get off benzos but his psychiatrist keepsupping the dose. However, at the same time he says he is out (last took 2mg). Pt says he has trouble finding a good fit when it comes to psychiatrist. He is also upset his psychiatrist switched himfrom Lexapro to Celexa. Pt a/o x 4. * Crow Prescott - 04/22/2018 2:57 AM CDT Pt changed into blue scrubs by this PCT Blue and valdez Vitor sneakers were put into a labled bag, La dogers hat and Dark blue and jeans were put into a labled bag along with his phone and wallet which contained fifty dollars. Patient calm at this time * Ryland Virgen MD - 04/22/2018 2:42 AM CDT HISTORY OF PRESENT ILLNESS Carlos Mcgee, a 48 y.o. male presents to the ED with a Chief Complaint of Anxiety Subjective 3:16 AM: 48 y/o M with history of HTN, diabetes, depression, anxiety, panic attacks, and PTSD presents requesting Xanax refill. Patient reports he last had his Xanax filled in March at [facility] he uses in [place]. He states he is currently switching from his psychiatrist he is seen since September, Dr. Evelia Shin, to Dr. Matt in [place]. Patient reports per his request Dr. Shin had worked with trying to taper him off the Xanax 2 mg 3 times daily that he has been on for 21 years. However he began having increase in anxiety so they increase the dose again. Patient states he ran out of his Xanax yesterday. His appointment with his new psychiatrist is not until Wednesday. Patient states he is feeling anxious and agitated. He is picking at his skin which he does when he is agitated. Patient is here requesting to have Xanax until he can see his new psychiatrist. He states the last time he had done this was in September when he was switching from his prior psychiatrist to Dr. Shin. He does state he was at [facility] but they gave him a prescription for several Valium which he did not fill. He states he will give me the prescription Patient denies hearing voices. He has no suicidal or homicidal ideation. History provided by: Medical records and the patient Arrived by: Private vehicle Arrived from: Home REVIEW OF SYSTEMS Review of Systems Constitutional: Negative for chills and fever. HENT: Negative for trouble swallowing. Eyes: Negative for photophobia and pain. Respiratory: Negative for chest tightness and shortness of breath. Cardiovascular: Negative for chest pain and leg swelling. Gastrointestinal: Negative for abdominal pain, nausea and vomiting. Genitourinary: Negative for dysuria and frequency. Musculoskeletal: Negative for back pain, myalgias and neck pain. Skin: Negative for pallor and rash. + picking at skin Neurological: Positive for tremors ( shaky ). Negative for speech difficulty and numbness. Psychiatric/Behavioral: Negative for confusion, hallucinations and suicidal ideas. The patient is [...] HOME MEDICATIONS Discharge Medication List as of 04/22/2018 4:26 AM CONTINUE these medications which have CHANGED Details ALPRAZolam (XANAX) 2 mg tablet Take 1 Tablet (2 mg) by mouth 3 times daily as needed for Anxiety., Disp-15 Tablet, R-0 CONTINUE these medications which have NOT CHANGED Details ondansetron (ZOFRAN ODT) 4 mg Tablet, Rapid Dissolve Place 1 Tablet (4 mg) under tongue every 6 hours as needed for Nausea/Emesis., Disp-30 Tablet, R-0 escitalopram oxalate (LEXAPRO) 20 mg tablet Take 1 Tablet (20 mg) by mouth daily., Disp-30 Tablet, R-1 amoxicillin (AMOXIL) 875 mg tablet Take 1 Tablet (875 mg) by mouth every 12 hours., Disp-20 Tablet,R-None amoxicillin-clavulanate (AUGMENTIN) 875-125 mg tablet Take 1 [...] Disp-1 Package, R-None fluticasone (FLONASE) 50 mcg/spray [place], Suspension Administer 2 Sprays in each nostril [...] Objective PHYSICAL EXAM INITIAL VS BP: (!) 146/98 (04/22/18 0245), Heart Rate: 66 bpm (04/22/18244), Resp: 18 (04/22/18244), Temp:98.3 ??F (36.8 ??C) (04/22/18244), Temp src: Oral (04/22/18244), SpO2: 99 % (04/22/18244), Height: 6' 2 (188 cm) (04/22/18244), Weight: 106.6 kg (235 lb) (04/22/18244), BMI (Calculated): 30.16 (04/22/18244) No LMP for male patient. Physical Exam Constitutional: He is oriented to person, place, and time. He is cooperative. HENT: Head: Normocephalic and atraumatic. Mouth/Throat: Oropharynx is clear and moist and mucous membranes are normal. Eyes: Pupils are equal, round, and reactive to light. Conjunctivae, EOM and lids are normal. No scleral icterus. Neck: Neck supple. No tracheal deviation present. [...] distension and no mass. There is no hepatosplenomegaly. There is no tenderness. There is no rebound and no guarding. Musculoskeletal: Normal range of motion. He exhibits no edema or tenderness. Lymphadenopathy: He has no cervical adenopathy. Neurological: He is alert and oriented to person, place, and time. No cranial nerve deficit (as tested). He exhibits normal muscle tone. Coordination normal. Skin: Skin is warm and dry. No rash noted. He is not diaphoretic. No erythema. No pallor. Spots on bilateral arms where he states he picks at, but no evidence of secondary infection. Psychiatric: His speech is normal and behavior is normal. Judgment and thought content normal. His mood appears anxious. He is not actively hallucinating. Cognition and memory are normal. He is attentive. Nursing note and vitals reviewed. DIAGNOSTICS LAB: No data to display RADIOLOGY: No orders to display No orders to display EKG: PROCEDURES Procedures MEDICAL DECISION MAKING AND PLAN OF CARE --I reviewed in the [facility] drug database and patient has not gotten prescriptions for controlled substances since one year ago. He states that he gets all of his prescriptions filled in [facility] in [place] and prior to that several months ago he had used a [facility] pharmacy. When I look in [facility] everywhere the patient's story matches his to his visits. Note from ehsan at [facility] is not yet in there but the patient shows me the paperwork and gave me the prescription. The nurse and I tore the prescription up and put it in the secure recycle bin. I have told the patient I would write him enough Xanax until he can see his new psychiatrist on Wednesday because his story does not match with the information I have. I have explained to him we do notlike doing this and that this will not be a recurrent event. Patient verbalizes understanding. MDM I have reviewed previous: notes I have reviewed nursing notes related to past medical history, social history, and review of systems and agree, unless otherwise noted. Discharge Medication List as of 04/22/2018 4:26 AM CONTINUE these medications which have CHANGED Details ALPRAZolam (XANAX) 2 mg tablet Take 1 Tablet (2 mg) by mouth 3 times daily as needed for Anxiety., Disp-15 Tablet, R-0 CONTINUE these medications which have NOT CHANGED Details ondansetron (ZOFRAN ODT) 4 mg Tablet, Rapid Dissolve Place 1 Tablet (4 mg) under tongue every 6 hours as needed for Nausea/Emesis., Disp-30 Tablet, R-0 escitalopram oxalate (LEXAPRO) 20 mg tablet Take 1 Tablet (20 mg) by mouth daily., Disp-30 Tablet, R-1 amoxicillin (AMOXIL) 875 mg tablet Take 1 Tablet (875 mg) by mouth every 12 hours., Disp-20 Tablet,R-None amoxicillin-clavulanate (AUGMENTIN) 875-125 mg tablet Take 1 [...] Disp-1 Package, R-None fluticasone (FLONASE) 50 mcg/spray [place], Suspension Administer 2 Sprays in each nostril [...] Shortness of Breath. LAST VS BP: (!) 146/98 (04/22/18244), Heart Rate: 66 bpm (04/22/18244), Resp: 18 (04/22/18244), Temp:98.3 ??F (36.8 ??C) (04/22/18244), Temp src: Oral (04/22/18244), SpO2: 99 % (04/22/18244) CLINICAL IMPRESSION Final diagnoses: [F41.8] Depression with anxiety (Primary) DISPOSITION, EDUCATION AND MEDICATION RECONCILIATION Medications reconciled. See after visit summary for patient education on discharged patients. ED Disposition ED Disposition Condition User Date/Time Comment Discharge Stable Ryland Virgen MD WedApr 22, 2018 4:08 AM Follow up: Jensen Matt DO [address] [place] [phone] Keep your appointment Wednesday. DISCHARGED HOME IN STABLE CONDITION. ATTESTATION STATEMENTS This note has been prepared by Bertha Wallace acting as a scribe for Dr. Darian Virgen on 04/22/2018 at 3:48 AM. The scribe's documentation has been prepared under my direction and personally reviewed by me, Ryland Virgen, in its entirety on 04/22/18 at 4:40 AM. I confirm that the note above accurately reflectsall work, treatment, procedures, and medical decision making performed by me. documented in this encounter Plan of Treatment Not on file documented as of this encounter Visit Diagnoses Diagnosis Depression with anxiety- Primary Dysthymic disorder documented in this encounter
--- OUTSIDE RECORDS SUMMARY | 2024-09-10 04:20 | XMS_ITS | Encounter Summary ---
Author Organization [employer] Address [address] [place] [address] Care Team Providers Care Marketing Operations Consultant Name Role Phone Unavailable Primary Care Provider Unavailabl e Reason for Visit * Reason Comments Anxiety 47M arrives ambulato ry for eval of increased anxiety. states I'm not getting the right treatment. My psychiatrist just up and retired. The other doctor in her practice said they won't give me anymore refills . has been out of meds x2 days. denies SI/HI. calm/cooperative. * Auth/Cert Specialty Diagnoses / Procedures Referred By Redd mobley Referred To Contact Emergency Medicine [facility] Emergency Dept [address] [place] [address] Referral ID Status Reason Start Date Expiration Date Visits Re quested Visits Authorized [id number] 1 1 Encounter Details Date Type Department Care Team (Late st Contact Info) Description 02/25/2017 4:11 PM CDT - 02/25/2017 7:31 PM CDT Emergency [facility] Emergency Department [address] [place] [address] Carlos Hanson MD [address] [place] [id number] Depression with anxiety (Primary Dx) Discharge Disposition: [...] Reading Time Taken Comments Blood Pressure 146/85 02/25/2017 7:30 PM CDT Pulse - - Temperature 36.7 ??C (98.1 ??F) 02/25/2017 3:13 PM CD T Respiratory Rate 18 02/25/2017 7:30 PM CDT Oxygen Saturation 98% 02/25/2017 7:30 PM CDT Inhaled Oxygen Concentration - - Weight 106.6 kg (235 lb) 02/25/2017 3:13 PM CDT Height 188 cm (6' 2 ) 02/25/2017 3:13 PM CDT Body Mass Index 30.17 02/25/2017 3:13 PM CDT documented in this encounter Discharge Instructions * Discharge Instructions* Aura Maynard T - 02/25/2017 6:43 PM CDT Psychiatric Services Dr. Singh [phone] Location: [place] Dr. Garcia & Radha [phone] Location: [place] Dr. Freeman [phone] Location: [facility] Psych [phone] Location: [place], [place] [facility] (Medicaid Only) [phone] Counseling Services [facility] [phone] Location: [place], [place] [facility] [phone] Location: [place], [place] [facility] [phone] Location: [place], [place] [facility] [phone] Location: [place], [place] [facility] [phone] Follow-up with referrals to psychiatry: [facility] Behavioral Health - [phone] [facility] Psychiatric Clinic - [phone] [facility] - [phone] [facility] has multiple offices in [facility] [phone] [facility] [phone] Estuardo Garcia Suicide Prevention/Crisis Hotlines [facility] - Behavioral Health Intake Department [phone] [facility] Behavioral Health Intake Department is professionally staffed and offers free, confidential evaluations for anyone needing assistance with a psychiatric, behavioral or addictive disorder. Evaluations, as well as referrals to physicians or community resources, are available 24 hours aday, 7 days a week. [facility] 505-622-YKDD (5262) [facility] is one of the nation???s oldest suicide prevention and crisis hotlines. [facility] operates 24 hours a day, 7 days a week, 365 days a year. [facility] ([facility]) [phone] (toll free) [facility] ([facility]) is a professionally staffed crisis response service. [facility] provides expert behavioral health, crisis response, and outreach services, 24 hours a day, seven days a week to agencies and companies worldwide. [place] Suicide Prevention Hotline 7-494-903-TALK (9615) A free, 24-hour hotline available to anyone in suicidal crisis or emotional distress. Your call will be routed to the nearest crisis center to you. [place] [facility] 0-029-UAYJDOY KUTO (Kids Under Twenty-One) Crisis Helpline 6-926-192-KU (9972) Youth staffed every day after 4pm NEUROLOGY PHYSICIAN ASSISTANT The [facility] Crisis Helpline is a confidential telephone hotline available to any youth who may be in need of assistance, referral information or crisis services. The [facility] Helpline is one of a handful ofhoines staffed exclusively by youth volunteers. [facility] [employer] [place] on Mental Illness ([facility]) [phone] documented in this encounter Medications at Time of Discharge Medication Sig Dispensed Refills Start Date End Date omeprazole (PriLOSEC) 40 mg Capsule, Delayed Release(E.C.) Take 40 mg by mouth daily. ibuprofen (MOTRIN) 600 mg tablet Take 1 Tablet (600 mg) by mouth every 6 hours as needed for Pain, Mild. 20 Tablet None 10/30/2016 fluticasone (FLONASE) 50 mcg/spray Bastian, Suspension Administer 2 Sprays in each nostril [...] by mouth daily. 30 Tablet 02/25/2017 07/08/2017 ALPRAZolam (XANAX) 2 mg tablet Take 1 Tablet (2 mg) by mouth 3 times daily for 7 days. 21 Tablet 02/25/2017 03/03/2017 sucralfate (CARAFATE) 1 gram tablet Take 1 Gram by mouth 4 times daily before meals and at bedtime. 06/04/2017 documented as of this encounter Progress Notes * Aura Maynard - 02/25/2017 6:33 PM CDT Intake Evaluation Start Time: 6:20 pm Carlos Mcgee is a 47 y.o. male who presents for Behavioral Health intake. Location of eval: ED (02/25/171825). Patient presents:: With hand bunch maker (02/25/171825) and Information obtained from:: Caregiver/Friend (02/25/171825) Transportation Mode: Other (friend) (02/25/171825) Name of Collateral information obtained from Medical Doctor Md/Medical Director: Yes; Explain:friend provided verbal Collateral information obtained from:: Other (friend) (02/25/171825): Yes; Explain:chart review Release of Info Signed: Living Arrangements: Other (Comment) (homeless, sometimes stays with friends) (02/25/171830) Referral Source: Self (02/25/171825) Legal Custody/Guardianship/Durable Power of Top Carrier: Legal Custody: Self (02/25/171825) CC/RFV: It's hard for me to find a psychiatrist. (02/25/171826) Narrative Summary/History of Present Illness: Precipitating event(s) within past 24-72 hours leading to presentation to the hospital: Pt was brought to the ED by friend for assessment per pt request. Pt denies SI, previous suicide attempts, HI, psychosis, or substance abuse. Pt reports difficulty sleeping and fluctuating appetite. Pt reports difficulty finding a psychiatrist in-network with his health insurance, [place] through [place] Medicaid. Pt reports taking xanax for 20 years and is unable to see a psychiatrist with [facility] in [place] since they do not prescribe controlled substances. Pt requests names of psychiatrists in the [facility] and he plans to pay out of pocket. Pt and friend both deny any safety concerns. Pt presents as cooperative, calm, polite, with good eye contact. Affect is incongruent with anxiety symptoms reported. Major Change/Loss/Stressor: none (02/25/171831) Risk Assessment Suicidal Ideation (Most Severe in Past Month) 1. Do you currently wish you were or wished you could go to sleep and not wake up? : No (02/25/171828) Suicidal and Self-Injurious Behavior Actual suicide attempt (Past 3 Months): No (02/25/171828) Actual suicide attempt (Lifetime): No (02/25/171828) Self-injurious behavior without suicidal intent (Past 3 Months): No (02/25/171828) Self-injurious behavior without suicidal intent (Lifetime): No (02/25/171828) Activating Events (Recent) Recent loss(es) or other significant negative event(s) (legal, financial, relationship, etc.): Yes (02/25/171828) Description: looking for a psychiatrist, homeless at times (02/25/171828) Pending incarceration or homelessness: Yes (02/25/171828) Current or pending isolation or feeling alone: No (02/25/171828) Treatment History Previous psychiatric diagnoses and treatments: No (hx with psychiatrists, no current psychiatrist) (02/25/171828) Not receiving treatment: Yes (02/25/171828) Clinical Status (Recent) Hopelessness: No (02/25/171830) Substance abuse or dependence: Yes (02/25/171830) Agitation or severe anxiety: No (02/25/171830) Method for suicide available: No (02/25/171830) Refuses or feels unable to agree to safety plan: No (02/25/171830) Family history of suicide (lifetime): No (02/25/171830) Access to Firearms: no (02/25/171831) If yes, plan to limit access: Homicidal Ideation: No Impairment in Functioning: mild Support Sytem: Support System:friends Current Providers/(Phone # if available): Psychiatrist: None current Therapist: None current Other services: none Current diagnosis: anxiety Medical Care Provider: No primary care provider on file. Phone: None Past Treatment History: Previous psychiatric diagnoses and treatments: No (hx with psychiatrists, no current psychiatrist) (02/25/171828) Has patient been discharged from a hospital within the last 30 days:no All Current Home Medications (per parent/caregiver report): xanax Family History of Mental Illness: unknown Pertinent Psychosocial History: Employment Status: unemployed Legal Concerns Do you have any recent legal concerns?: courtdate for child support in april 2017 (02/25/171831) Major Change/Loss/Stressor: none (02/25/171831) Current Abuse: abuse screen: None History of abuse/trauma/agency involvement: Explain: none Substance Abuse Screening: Chemical Abuse Screen Patient reports chemical abuse/use: No (02/25/171831) Mental Status Evaluation: Appearance: Within normal limits (02/25/171831) Behavior: Cooperative;Appropriate to situation (02/25/171831) Observed Emotional State: calm;cooperative (02/25/171831) Speech: Normal rate/tone (02/25/171831) Thought Processes: Alert;Organized (02/25/171831) Social Judgement: Difficulty in problem solving (02/25/171831) Sensorium/Orientation:person, place, time/date and situation Cognition:grossly intact Depression: Symptoms: Appetite change;Sleep disturbance (02/25/171826) Anxiety: Symptoms: Generalized (02/25/171826) Devorah: Symptoms: No problems reported or observed (02/25/171826) Eating Disorders: Hallucination Type: No problems reported or observed (06/15/17 1827) Delusion Type: No problems reported or observed (02/25/17 2487) Quality of Sleep:fair with nightime awakenings and difficulty falling back asleep if awakened Hours of Sleep: wakes every hour Changes in Appetite:no change from normal Special Needs and Services: none Plan/Disposition as directed by physician: Referral to outpatient providers. Consulting Physician: Thanh Attending Physician: On-Call Psychiatrist: Thanh Hand-Off Report Given: yes Provisional Diagnoses: ?? Primary Diagnosis: Generalized anxiety ?? Additional Diagnosis(es): N/a ?? Acute Medical: See chart ?? Psychosocial: housing, primary support Legal Status: voluntarily Suicide Hotline Resources Provided: yes documented in this encounter ED Notes * Peggy Zee RN - 02/25/2017 7:29 PM CDT 1 bag of belongings returned to pt. * Peggy Zee RN - 02/25/2017 7:29 PM CDT D/C instructions, new medications, and follow up reviewed with pt. All questions addressed and pt verbalizes understanding. * Peggy Zee RN - 02/25/2017 7:[address] Hanson at * Serafin Salcedo RN - 02/25/2017 6:28 PM CDT Intake at bedside. * Serafin Salcedo RN - 02/25/2017 6:15 PM CDT Patient updated on POC and plan for intake to evaluate. Patient denies any additional needs at thistime. * Serafin Salcedo RN - 02/25/2017 4:56 PM CDT MD at bedside. * Serafin Salcedo RN - 02/25/2017 4:53 PM CDT Patient is a 47 y/o male that comes in today complaining of increased anxiety. Patient states that he has been out of his anxiety medication for the last 2 weeks. Patient states that his doctor retired, and that he has not been able to get into a new one. Patient denies SI or HI. Patient states that he is also having increased pain to the left jaw, patient states that this is not new, but that itis worse than usual and popping. Patient is calm and cooperative at this time. Patient A&OX4.Airway clear, Chest equal rise and fall. Abdomen is soft and non-tender. Patient skin has color consistent with ethnicity, is warm, dry, and patient has PMS x 4. * Carlos Hanson MD - 02/25/2017 3:12 PM CDT Images from the original note were not included. Emergency Department Attending Physician Note Physician Summary 47 y.o. male who presented with anxiety/depression, ran out of medications a few days ago, hx/o similar presentation, last evaluation in 10/30. States his previous psychiatrist retired. Vitals stable.Patient also mentioned multiple other various symptoms including right leg pain, left arm pain, left facial pain, dizziness - patient well appearing, neuro intact, physical exam normal. Told to have close f/u with PCP. Medically clear. Seen by intake, comfortable with discharge, given psych referrals. Given 1 week of xanax for chronic benzo use, told to continue with f/u with counseling and psychiatry. History of Present Illness Primary Care Doctor: No primary care provider on file. Documented Triage Chief Complaint: Anxiety Physician arrived in the room at: 4:47 PM Carlos Mcgee is a 47 y.o. male who presents with anxiety. Patient has hx of anxiety and depression and states that his care clinician retired abruptly in December.He currently has multiple complaints, but is mainly here because he has run out of his Xanax two days ago and is now having worsening anxiety and depression. Timing (Onset, frequency/progression): gradual Location: n/a Severity: moderate Duration: last 2-3 days Frequency/Progression: worsening Quality: none Radiation: none Modifiers: none Associated symptoms: none Mode of Arrival: private vehicle Patient information was obtained from: the patient History/Exam limitations: none Relevant Medical History Past Medical History: Past Medical History: Diagnosis Date ??? Anxiety ??? Chronic neck pain ??? Depression anxiety ??? Diabetes ??? Diverticulitis ??? HTN (hypertension) ??? Panic attacks ??? PTSD (post-traumatic stress disorder) Past Surgical History: Past Surgical History: Procedure Laterality Date ??? CHG ANES REMOVAL GALLBLADDER ??? HX CHOLECYSTECTOMY Home Medications: Patient's Home Medications Current Home Medications ALBUTEROL 90 MCG/ACTUATION HFA INHALER ALPRAZOLAM (XANAX) 2 MG TABLET AMOXICILLIN (AMOXIL) 500 MG CAPSULE ATENOLOL (TENORMIN) [...] this Encounter Medications Discontinued during this Encounter Allergies: Augmentin [amoxicillin-pot clavulanate]; Bactrim [sulfamethoxazole- trimethoprim]; Bystolic [...] not drink alcohol or use illicit drugs. Family History: family history includes Diabetes in his maternal grandfather and maternal grandmother; Other in hisfather; Stroke in his father. Review of Systems ?? A comprehensive review of systems was completed. All other systems negative except as marked. ?? See HPI for additional ROS Constitutional: No Fever Eyes: No vision change, no photophobia ENT: No rhinorrhea, No sore throat Respiratory: No cough Cardiac: No chest pain, No palpitations GI: No abdominal pain, no nausea, no vomiting, no diarrhea : No dysuria or genital discharge, no hematuria Musculoskeletal: No joint pain, no muscle aches Skin: No rash Heme: No spontaneous bleeding, no bruising Neuro: No weakness, no numbness/tingling, no difficulty walking Psych: +Anxious, +depressed, No hallucinations Physical Exam BP: (!) 147/93 (02/25/17 1513), Pulse: (not recorded), Resp: 20 (02/25/17 1513), Temp: 98.1 ??F (36.7 ??C) (02/25/171512), Temp src: Oral (02/25/171512) General: Well developed, well nourished Eyes: HEENT: No sclera injection, no conjunctiva discharge Nose without drainage, mucous membranes moist, tympanic membranes intact Neck: No tenderness Back: No tenderness Heart: Regular rate and rhythm without murmur Lungs: Clear to ausculation bilaterally Abdomen: Soft, nontender, no pain with deep palpation, no large masses palpated Rectal/Genital: Not performed Extremities: No edema, no calf tenderness, distal pulses intact Pulses: 2+ radial = bilat Skin: No rash, no petechiae, no purpura Lymphatic: No lymphadenopathy noted Neuro: No facial droop, good and equal strength and sensation in all extremities. CN and DTRs intact Psych: Alert and oriented x 3 with good recall for recent/remote. Studies and Interpretation Pulse Oximetry Interpretation: Saturation: 99% Oxygen Delivery: Room Air Interpretation: No hypoxia at this time Imaging (all imaging was independently reviewed by myself): No orders to display Labs: (Reviewed by myself), Significant for: Medical Decision Making and ED Course Initial Evaluation: 47 y.o. male who presents with anxiety/depression. With reviewing triage note/vitals as well as initial encounter with patient and exam, I had considered at least at one time in the differential: anxiety, depression, borderline, drug seeking, malingering. I reviewed prior records and noted previousevaluations for similiar. Initial blood work and imaging included: none. Medications given initially were: xanax. Updates Neuro intact, well appearing, vitals stable. Physical exam normal. Medically clear. Seen by intake, no SI/HI, comfortable with patient being discharged. Given referrals. Given xanax refill for 1 week, told we would not be filling any more in the near future. Discharged. Medications Ordered/Given Medications Administered During the ED Stay from 02/25/2017 1512 to 02/25/2017 1746 Date/Time Order Dose Route Action 02/25/2017 1733 ALPRAZolam (XANAX) tablet 2 mg 2 mg Oral Given Further Management Decisions and Complexity --Triage notes reviewed, vitals reviewed. --Clinical lab tests: ordered and reviewed by myself prior to discharge/admission --Independent visualization of any images, tracings, or specimens (including EKGs): yes --Attempted to obtain, review and summarize past medical records: yes --Discussed the patient with other providers: yes Critical Care / Procedures No procedures done during this visit. No critical care time was provided for the patient. Final Disposition 1930: I updated the patient on findings, diagnosis, [...] for this diagnosis and mandatory follow up. Patient was made aware of incidental findings including: none. After my full evaluation and plan for discharge, I have low suspicion for: SI, HI, psychosis, stroke, ICH. Vitals at Discharge: BP (!) 146/85 (BP Location: Right arm, Patient Position (BP): Sitting) Temp 98.1 ??F (36.7 ??C) (Oral) Resp 18 Ht 6' 2 (1.88 m) Wt 106.6 kg (235 lb) SpO2 98% BMI 30.17 kg/m2 New Prescriptions: Discharge Medication List as of 02/25/2017 7:20 PM CONTINUE these medications which have CHANGED Details citalopram (CeleXA) 40 mg tablet Take 1 Tablet (40 mg) by mouth daily., Disp-30 Tablet, R-0 ALPRAZolam (XANAX) 2 mg tablet Take 1 Tablet (2 mg) by mouth 3 times daily for 7 days., Disp-21 Tablet, R-0 CONTINUE these medications which have NOT CHANGED Details omeprazole (PriLOSEC) 40 mg Capsule, Delayed Release(E.C.) Take 40 mg by mouth daily. ibuprofen (MOTRIN) 600 mg tablet Take 1 Tablet (600 mg) by mouth every 6 hours as needed for Pain, Mild., Disp-20 Tablet, R-None fluticasone (FLONASE) 50 mcg/spray Bastian, Suspension Administer 2 Sprays in each nostril daily., Disp-16 Gram, R-0 meclizine (ANTIVERT) 25 mg tablet Take 25 mg by mouth 2 times daily as needed for Dizziness. atenolol (TENORMIN) 100 mg tablet Take 0.5 Tablet (50 mg) by mouth 2 times daily., Disp-10 Tablet, R-0 methylPREDNISolone (MEDROL, BIJU,) 4 mg Tablets, Dose Pack Medrol dose pack as directed., Disp-1 Package, R-None amoxicillin (AMOXIL) 500 mg capsule Take 1 Capsule (500 mg) by mouth 3 times daily., Disp-21 Capsule, R-None sucralfate (CARAFATE) 1 gram tablet Take 1 [...] tablet Take 150 mg by mouth daily. albuterol 90 mcg/Actuation HFA inhaler Take 2 Puffs by inhalation every 6 hours as needed for Shortness of Breath. Patient was made aware of potential side effects of prescription medications including: xanax - addiction, respiratory failure, sedation Follow Up: [facility] Emergency Department [address] [facility] [address] Diagnosis: Encounter Diagnoses Code Name Primary? F41.8 Depression with anxiety Yes Patient's chronic conditions including anxiety were reviewed and were deemed stable as well prior to discharge. . Disposition: Discharge This note has been prepared by Jesus Rosas acting as a scribe for Dr. Carlos Hanson on 02/25/2017. The scribe's documentation has been prepared under my direction and personally reviewed by me, Carlos Hanson MD, 02/25/2017 7:42 PM, in its entirety on 02/25/17 at 5:46 PM. I confirm that the note above accurately reflects all work, treatment, procedures, and medical decision making performedby me. documented in this encounter Plan of Treatment Not on file documented as of this encounter Visit Diagnoses Diagnosis Depression with anxiety- Primary Dysthymic disorder documented in this encounter Administered Medications Inactive Administered Medications - up to 3 most recent administrations Medication Order MAR Action Action Date Dose Rate Site ALPRAZolam (XANAX) tablet 2 mg 2 mg, Oral, ONE TIME ONLY, 1 dose, On Radha 02/25/17 at 1715, Routine Given 02/25/2017 5:33 PM CDT 2 mg documented in this encounter Active and Recently Administered Medications Times are shown in CDT. Scheduled Medication Order 02/23/2017 02/24/2017 02/25/2017 ALPRAZolam (XANAX) tablet 2 mg (COMPLETED) 2 mg, Oral, ONE TIME ONLY, 1 dose, On Radha 02/25/17 at 1715, Routine 1733 (Given - Provid er: Serafin Salcedo RN) documented in this encounter
--- OUTSIDE RECORDS SUMMARY | 2024-09-10 04:20 | XMS_ITS | Encounter Summary ---
Author Organization [employer] Address [address] [place] [address] Care Team Providers Care Lug Breaker And Wire Puller Name Role Phone Unavailable Primary Care Provider Unavailabl e Reason for Visit * Reason Onset Date Comments Unable To Contact 06/02/2017 Encounter Details Date Type Department Care Team (Late st Contact Info) Description [facility]02[facility]2017 [facility] [address] [place] [address] Iwona Bustillos, RN Social History [...] Miscellaneous Notes * Telephone Encounter - Iwona Bustillos, RN - 06/02/2017 3:57 AM CDT Reason for Disposition ??? Message left on identified answering machine. Protocols used: NO CONTACT OR DUPLICATE CONTACT CALL-A-AH * Telephone Encounter - Iwona Bustillos RN - 06/02/2017 3:54 AM CDT Regarding: Gastric questions ----- Message from Francia Rodrigues sent at 06/02/2017 3:40 AM CDT ----- Patient's address on file: [address] [place] [address] Patient's current location: Same as above documented in this encounter Plan of Treatment Not on file documented as of this encounter Visit Diagnoses Not on filedocumented in this encounter
--- OUTSIDE RECORDS SUMMARY | 2024-09-10 04:20 | XMS_ITS | Encounter Summary ---
Author Organization [facility] Address [address] [place] [address] Care Team Providers Care Digital Retoucher Name Role Phone Unavailable Primary Care Provider Unavailabl e Reason for Visit * Reason Comments Anxiety Pt h/o anxiety and p anic attacks. Pt is taking Xanax. Pt reports he just found out he is dx with colon CA. Pt concerned his psychiatrist has personal feelings toward him. Pt reports has legal action to this MD. Pt is requesting Xanax tonight. Last dose taken tonight. Pt concerned he may go through withdrawl and have a sz without the Xanax. * Auth/Cert Specialty Diagnoses / Procedures Referred By Redd mobley Referred To Contact Emergency Medicine [facility] Emergency Dept [address] [place] [address] Referral ID Status Reason Start Date Expiration Date Visits Re quested Visits Authorized [id number] 1 1 Encounter Details Date Type Department Care Team (Late st Contact Info) Description 05/21/2018 10:40 PM CDT - 05/21/2018 11:54 PM CDT Emergency [facility] Emergency Department [address] [place] [address] Dave Jacob MD NO ADDRESS ON FILE Anxiety state (Primary Dx) Discharge Disposition: Home [...] Sign Reading Time Taken Comments Blood Pressure 145/109 05/21/2018 11:38 PM CDT Pulse 67 05/21/2018 11:37 PM CDT Temperature 36.7 ??C (98 ??F) 05/21/2018 11:38 PM CDT Respiratory Rate 18 05/21/2018 11:38 PM CDT Oxygen Saturation 100% 05/21/2018 11:38 PM CDT Inhaled Oxygen Concentration - - Weight 111.1 kg (245 lb) 05/21/2018 10:32 PM CDT Height 185.4 cm (6' 1 ) 05/21/2018 10:32 PM CDT Body Mass Index 32.32 05/21/2018 10:32 PM CDT documented in this encounter Discharge Instructions * Discharge Instructions* Phyllis Rendon LMSW - 05/21/2018 11:22 PM CDT Follow up with the referral line for a psychiatrist. Follow up in the ER with worsening symptoms. Carlos Gonzalez was seen in [facility]'s Emergency Department on 05/21/18 by a Masters Level Clinician. Per the consulting physician, the following recommendations have beenmade. Please follow up with: ADULT THERAPY/PSYCHIATRY INFORMATION [facility] [address] [place], [address] Murray Martin* Damien Marsh, Jone Bolanos, Basilio Oneill, Nadege Feng, Raza Zapata* Nav John, Delfina Casarez, Kavita Bolanos, Inna Schaeffer, Robbie Fitzgerald, Za Lantigua, Desean [facility] [address] [place], [address] Adult [place] Jensen Nichols (IOP)* Venus Webb, Chi Conti, John Beckford, Jenaro Marks, Mikhail Macdonald, Stanton Christianson, Blanquita Bustos, Iwona Ga, Venus Patel, Leslie Childs, David Garcia, Shawanda Sneed, Jenaro Hong, Mita Macdonald, Barbara Andujar, Nicki Young, Kavita Nye, Pavel Johnson, Adin Michel, Cynthia Bcak, Alessandra Hagan, Helen Abrams, Martin Hernandez, Mikaela Griffin [facility] [address] [place], [place], [id number] Rizwan Martinez (IOP)* Luís Mcdaniel (IOP)* AndLevi rob, Emily [facility] Kylah, Hardik Eller, Juan Luis Horowitz, Zara Rae, Raza ???Deacon?? Chyna Bowen, Magda Salmeron, Kandi Gonzalez, Davide Kidd, Ryland [facility] [address] [facility] [address] [address] [facility] [address], [address] [place] [address] (ph) (fax) [facility] [address] [place], [address] Diaz Aguilar* Psychotherapy Jaimie [facility]derr[facility] [address] [place], [place], [id number] [place] (IOP)* Psychotherapy Raza Melendrez Rick INSynesanjuanita [address] [place], [address] Peggy Romo T[place], [place]* ([phone]) Ryland Fowler* Reji Pandey* Psychotherapy Davide Stewart Patricia Reimann, Steve Ritzman, Cheryl Estuardo, Hab[address] [place], [address] Habib, Estuardo* Psychotherapy Donte Jonib, [address] [place], [address] [place], [address] Habib, Arif Richy [facility] [address] [place], [place], [id number] Richy Zuniga* [address] DOES NOT follow inpatient admissions John Gorman [address] [place], [address] John Gorman Steven [facility], Angelique [facility] [address] [place], [address] Bobby Kapoor Zinia Leonardo [facility] Melbeta Toll Free: [phone] [facility] [address] [place] [address] [address] [place], [place] [id number] [address], [facility] [place] [address] [facility]) [facility]) [facility]) [facility]) Chema Lowe, Christal Lowe, Rissa Baum, Jim Lowe, Anshu Preciado, Deena Benton, Dayton Flores * = Hospital Staff with admitting rights Should Carlos have any concerns for safety, Carlos is agreeable to contacting a trusted family member or friend, current providers, [facility] at the number listed below, any of the crisis lines below, 911 or going to the nearest Emergency Department. Suicide Prevention/Crisis Hotlines Call 911 or [facility]) - Behavioral Health Intake Department [phone] [facility] Behavioral Health Intake Department is professionally staffed and offers free, confidential evaluations for anyone needing assistance with psychiatric and behavioral issues. Evaluations are available 24 hours a day, 7 days a week. [facility] 884-673-PIZZ (1852) [facility] is one of the nation???s oldest suicide prevention and crisis hotlines. [facility] operates 24 hours/day. Behavior[facility] Health [facility] ([facility]) [phone] (toll free) [phone] [facility] ([facility]) is a professionally staffed crisis response service. [facility] provides expert behavioral health, crisis response, and outreach services throughout the [facility], 24 hours a day, 7 days a week. /[facility] Suicide Hotline 6-950-824-TALK (0623) (Press 1) National Suicide Prevention Hotline 6-593-459-TALK (1079) 05/04 hotline available to anyone in suicidal crisis or emotional distress. Call will be routed to the nearest crisis center to you. [employer] [facility] 1-700-IKHPEMO (699-2580) 05/04 hotline that connects people who are depressed or suicidal, or those who are concerned about someone they love, automatically to a CONTACT [facility] or AAS certified crisis center. * Attachments The following attachments cannot be sent through Care Everywhere. * Anxiety Disorder (Danish) documented in this encounter Medications at Time of Discharge Medication Sig Dispensed Refills Start Date End Date omeprazole (PriLOSEC) 40 mg Capsule, Delayed Release(E.C.) Take 40 mg by mouth daily. ibuprofen (MOTRIN) 600 mg tablet Take 1 Tablet (600 mg) by mouth every 6 hours as needed for Pain, Mild. 20 Tablet None 10/30/2016 fluticasone (FLONASE) 50 mcg/spray [facility], Suspension Administer 2 Sprays in each nostril [...] daily as needed for Anxiety. 15 Tablet 05/21/2018 08/21/2018 escitalopram oxalate (LEXAPRO) 20 mg tablet Take 1 Tablet (20 mg) by mouth daily. 30 Tablet 1 08/16/2017 11/24/2018 documented as of this encounter ED Notes * Louisa Tobin RN - 05/21/2018 10:44 PM CDT Pt to ED for xanax refill. Pt sts took his last xanax pill today and was not able to get hold of his psychiatrist for a wk. Pt reports increased anxiety. Pt sts that he is afraid that he will go intowithdrawal if he does not get prescriptions for xanax today. Pt denies SI/HI. Pt reports recent colon cancer diagnosis. RR even and unlabored. Pt is calm and cooperative. Safety rounds initiated. Will continue to monitor. * Dave Jacob MD - 05/21/2018 10:26 PM CDT HISTORY OF PRESENT ILLNESS Carlos Mcgee, a 48 y.o. male presents to the ED with a Chief Complaint of Anxiety Subjective 10:59 PM: Carlos Mcgee is a 48 y.o. male with a history of anxiety, recent colon cancer dx, GERD, DMII, and depression who presents to the Emergency Department with complaints of anxiety. Patient states he does not have a psychiatrist right now due to his anxiety specialist being unprofessional . He states that she made it quite clear in our sessions that she does not have a boyfriend or a . He claims that she will now not respond to pharmacists or him and will not refill his prescription. He admits she Recently filled his prescription after not filling it last month. Patient goes to a [facility] pharmacy in [place]. He also claims he was dx with colon cancer after a colonoscopy at [facility]. Physician(s): No primary care provider on file. REVIEW OF SYSTEMS Review of Systems Constitutional: [...] HOME MEDICATIONS Discharge Medication List as of 05/21/2018 11:31 PM CONTINUE these medications which have CHANGED [...] Disp-1 Package, R-None fluticasone (FLONASE) 50 mcg/spray [facility], Suspension Administer 2 Sprays in each nostril [...] Objective PHYSICAL EXAM INITIAL VS BP: (!) 176/107 (05/21/182231), Heart Rate: 65 bpm (05/21/182231), Resp: 16 (05/21/182231), Temp: 98.1 ??F (36.7 ??C) (05/21/182231), Temp src: Oral (05/21/182231), SpO2: 100 % (05/21/182231), Height: 6' 1 (185.4 cm) (05/21/182231), Weight: 111.1 kg (245 lb) (05/21/182231), BMI (Calculated): 32.33 (05/21/182231) No LMP for male patient. Physical Exam Constitutional: He is oriented to person, place, and time. No distress. HENT: Head: Normocephalic and atraumatic. Eyes: Right eye exhibits no discharge. Left eye exhibits no discharge. Neck: No JVD present. Pulmonary/Chest: Effort normal. No respiratory distress. Musculoskeletal: Normal range of motion. He exhibits no edema or tenderness. Neurological: He is alert and oriented to person, place, and time. No cranial nerve deficit. He exhibits normal muscle tone. Skin: Skin is warm and dry. He is not diaphoretic. Psychiatric: He has a normal mood and affect. His speech is normal and behavior is normal. His affect is not angry. He is not aggressive. Patient is speaking in full sentences and remains calm and cooperative. Patient has a flat affect and was soft spoken. No HI or SI Nursing note and vitals reviewed. DIAGNOSTICS LAB: No data to display RADIOLOGY: No orders to display No orders to display EKG: PROCEDURES Procedures MEDICAL DECISION MAKING AND PLAN OF CARE -- Upon initial evaluation, dicussed with patient the plan to give him 10 meds and dc home with psychiatrists' numbers. Patient wants 15 meds. Discussed looking at charts and then deciding on the amount after. ED provider and ED nurse verbally discussed patient plan of care at this time. 11:09 PM: Discussed with Intake ([place]). 11:39 PM: Discussed with Intake ([place]). Plant to discharge patient home. MDM Summary Statement: Long-standing anxiety. Known to me from previous visits. Patient reports anxiety disorder and currently does not have a psychiatrist to fill meds. Patient is much more appropriate and cooperative versus other visits. He is here after hours and I cannot call his pharmacies. No recent meds from PDMP.I will provide short course of Xanax. He appears well for discharge. Of note has report of recent diagnosis of cancer. Patient states he has surgeon and follow-up set up. Also blood pressure elevated. Patient aware of need to follow this as well. I have reviewed previous: notes I have reviewed nursing notes related to past medical history, social history, and review of systems and agree, unless otherwise noted. Consults: psychiatry Discharge Medication List as of 05/21/2018 11:31 PM CONTINUE these medications which have CHANGED [...] Disp-1 Package, R-None fluticasone (FLONASE) 50 mcg/spray [facility], Suspension Administer 2 Sprays in each nostril [...] Shortness of Breath. LAST VS BP: (!) 145/109 (05/21/182337), Heart Rate: 65 bpm (05/21/182231), Resp: 18 (05/21/182337), Temp: 98 ??F (36.7 ??C) (05/21/182337), Temp src: Axillary (05/21/182337), SpO2: 100 % (05/21/182337) CLINICAL IMPRESSION Final diagnoses: [F41.1] Anxiety state (Primary) DISPOSITION, EDUCATION AND MEDICATION RECONCILIATION Medications reconciled. See after visit summary for patient education on discharged patients. ED Disposition ED Disposition Condition User Date/Time Comment Discharge Stable Dave Jacob MD Sat May 21, 2018 11:09 PM ATTESTATION STATEMENTS This note has been prepared by Latesha Liz acting as a scribe for Dr. Dave Jacob on 05/21/2018 at 11:45 PM. The scribe's documentation has been prepared under my direction and personally reviewed by me, Dave Jacob, in its entirety on 05/21/18 at 11:55 PM. I confirm that the note above accurately reflects all work, treatment, procedures, and medical decision making performed by me. documented in this encounter Plan of Treatment Not on file documented as of this encounter Visit Diagnoses Diagnosis Anxiety state- Primary Anxiety state, unspecified documented in this encounter
--- OUTSIDE RECORDS SUMMARY | 2024-09-10 04:20 | XMS_ITS | Encounter Summary ---
Author Organization [facility] Address [address] [place] [address] Care Team Providers Care Health Manager Name Role Phone Unavailable Primary Care Provider Unavailabl e Reason for Visit * Reason Comments Anxiety Pt here with anxiety . Pt has called over 105 places to be treated for anxiety. Pt has hx PTSD. Denies SI, but reports feeling like there is no hope . Pt also fell on Wednesday due to ice. Pt fell onto buttock and would like rib xray. Denies LOC. Pt has bruising to left arm. * Auth/Cert Specialty Diagnoses / Procedures Referred By Redd mobley Referred To Contact Emergency Medicine [facility] Emergency Dept [address] [place] [address] Referral ID Status Reason Start Date Expiration Date Visits Re quested Visits Authorized [id number] 1 1 Encounter Details Date Type Department Care Team (Late st Contact Info) Description 08/31/2016 10:02 PM NEWS CAMERA OPERATOR - 09/01/2016 1:14 AM [facility] Emergency [facility] Emergency Department [address] [place] [address] Edin Marcum MD [address] [facility] [place] [address] Anxiety state (Primary Dx); Fall, initial encounter; Left elbow contusion; Chest wall contusion, left, initial encounter Discharge Disposition: Home or Self Care Social [...] Reading Time Taken Comments Blood Pressure 139/89 09/01/2016 12:30 AM NEWS CAMERA OPERATOR Pulse - - Temperature 37.2 ??C (99 ??F) 08/31/2016 9:03 PM NEWS CAMERA OPERATOR Respiratory Rate 16 09/01/2016 12:30 AM NEWS CAMERA OPERATOR Oxygen Saturation 99% 09/01/2016 12:30 AM NEWS CAMERA OPERATOR Inhaled Oxygen Concentration - - Weight 130.6 kg (288 lb) 08/31/2016 7:50 PM NEWS CAMERA OPERATOR Height 188 cm (6' 2 ) 08/31/2016 7:50 PM NEWS CAMERA OPERATOR Body Mass Index 36.98 08/31/2016 7:50 PM NEWS CAMERA OPERATOR documented in this encounter Discharge Instructions * Discharge Instructions* Edin Marcum MD - 09/01/2016 1:07 AM NEWS CAMERA OPERATOR Although the follow up options do not fit well with your lifestyle, you need to secure a physician to help you will your chronic problems. The ER is not good at managing your chronic issues. If thereare any acute problems please return. FRANCESCOTEETEE Thanh KELLY (1970) Carlos was seen in [facility]'s Emergency Department on 09/01/2016 by a Masters Level Clinician. Per the consulting psychiatrist, Dr. Sequeira, Carlos should continue to attempt follow up with outpatient providers for psychiatry and counseling. Should Carlos have any concerns for safety, he is agreeable to contacting a trusted family member or friend, current providers, [facility] at the number listed below, any of the crisis lines below, 911 or going to the nearest Emergency Department. Outpatient Referrals for Psychiatry/Counseling Psychiatric Services Dr. Singh [phone] Location: [place], [place] Dr. Adamson [phone] Location: [place] Dr. Freeman [phone] Location: [facility] Psych [phone] Location: [place], [place] Medication Clinic (Medicaid Only) [phone] Counseling Services [facility] [phone] Location: [place], [place] [facility] [phone] Location: [place], [place] [facility] [phone] Location: [place], [place] [facility] [phone] Location: [place], [place] [facility] [phone] [facility] Chemical Dependency Treatment Facilities [facility] [phone] Location: [place], [place] [facility] [phone] Location: [place], [place] [facility]* [phone] Location: [place], [place] [facility]* [phone] Location: [facility]* [phone] Location: [place], [place] [facility] [phone] Location: [facility] [phone] Location: [facility] [phone] Location: [place], [place] [facility] [phone] Location: [place], [place] * = Adolescent Programs = Multiple Locations throughout [place] Inpatient Chemical Dependency Treatment [facility] [phone] Location: [facility]* [phone] Location: [place], [place] [facility] [phone] ` Location: [facility] [phone] Location: [facility] [phone] Location: [place], [place] [facility] [phone] Location: [facility]Adult [facility]) [phone] Location: [facility] [phone] Location: [facility] (Alcohol Detox) [phone] Location: [facility] [phone] Location: [place], [place] [facility] [phone] Location: [facility] ([facility]) [phone] Location: [place], [place] * = Adolescent Programs = Multiple Locations throughout [place] Chemical Dependency Hotlines AA Hotline 612-011-6203 AL-ANON Hotline 731-089-1488 Heroin Hotline 972-101-4544 NA Hotline 100-930-6378 Chemical Dependency Intensive Outpatient Programs (IOP) [facility] [place] - [place], [place] - [phone] Adult Dual 9:15AM - 1:15PM M-F Adolescent Dual 8:05AM - 12:45PM M-F Cassandra [place], [place] - [phone] Adult Substance Abuse 8:30AM - 11:30AM M, , [facility] [phone] Adult Suboxone Program 4 PM - 7 PM (, , ) & 12 PM - 3 PM (, , ) [facility] Adult Dual [phone] 9:30AM - 12:30PM M-F Adult Chemical Dependency [phone] 6:00PM - 9:00PM M, , Adult Suboxone Program [phone] 9:30AM - 12:30PM M, , [facility] [phone] Adolescent Dual [1318 in HS] 5:00PM - 8:00PM M, , Adult Dual 9:30AM - 12:30PM M-F Adult Suboxone Program 9:30AM - 12:30PM M, , W Adult Chemical Dependency/Dual 5:30PM - 8:30PM , , Chemical Dependency (Family Education) 9:30AM - 1:30 PM 3rd Sat of month [facility] [phone] Adult Dual 9:10AM - 12:30PM M-F Adolescent Dual [1318 in HS] 5:00PM - 8:30PM M, , [facility] - [phone] Adult Dual 9:30AM - 12:30PM M-F Adult Chemical Dependency/Dual 5:30PM - 8:30PM M, , Adult Suboxone Program 9:30AM - 12:30PM M, , W Adolescent Dual [1318 in HS] 5:00PM - 8:30PM M, , [facility] - [phone] Adult Dual 9:00AM - 12:00PM M-F [facility] - [phone] (Accept United, Aetna, [employer], & [employer]) Adult Chemical Dependency 6:00 PM - 9:00PM - [facility] ([place]) [phone] or [phone] ([facility] does not take Cigna) Adult Dual (Private Insurance Only) 9:00AM - 12:30 PM M-F Adult Chemical Dependency 5:00PM - 8:00PM - [facility] [place] ([place]) [phone] ([facility] does not take Cigna) Adult Dual (Private Insurance Only) 9:00AM - 12:30PM M-F [facility] ([place]) [phone] ([facility] does not take Cigna) Adult Dual (Private Insurance Only) 9:00AM - 12:30PM M-F [facility] ([facility]) [phone] Adult Dual 11:30AM - 3:30PM M-F Adult Chemical Dependency 6:00PM - 9:00PM , [facility] - [phone] (Private Pay/Insurance Only) Adult CD/Dual 9:00AM - 12:00PM M-F Follow-up with referrals to psychiatry: [facility] Behavioral Health - [phone] [facility] Psychiatric Clinic - [phone] [facility] - [phone] Dr Garcia (private pay clinic every ) - [phone] [place] Ref[facility] Medical Clinics [facility] - [phone] (New patient appointments are accepted on Mondays) Vania Angel/Jas P[facility] - [phone] (Centralized scheduling line) [facility] - [address] [place] [address] - [phone] [facility] - [phone] [facility] - [phone] (Must walk-in and complete pre- registration for services.Please call to learn items needed for pre-registration) [facility] - [phone] (Must complete an application) Volunteers in [facility] - [phone] (multiple locations: [facility], [place], [place], [place], [place]) [facility] Professional Services - [phone] [facility] [place] [facility] [place] - [phone] Care [facility]ing - [phone] [facility] - [phone] (website: [employer]) [facility] - [phone] [facility] - [phone] or [facility] - [phone] [facility] - [phone] [facility] Counseling - [phone] [facility] Family & Children's Service - [phone] [facility] (therapist Jeremy Norman) - [phone] It is recommended that you attend AA/NA: Alcoholics Anonymous - [phone] Aastl.org Narcotics Anonymous - [phone] Na.org Chemical Dependency Treatment Resources [facility] - [phone] [facility] - [phone] [facility] - [phone] [facility] - [phone] [facility] - [phone] [facility] - [phone] [facility] - [phone] or [address] near [place] For more information please contact the National [employer] Worker on Alcoholism and Drug Abuse in [place] (NCADA) at 293-735-0846. Suicide Prevention/Crisis Hotlines Call 911 or [facility] ([place]) - Behavioral Health Intake Department [phone] [facility] Behavioral Health Intake Department is professionally staffed and offers free, confidential evaluations for anyone needing assistance with psychiatric and behavioral issues. Evaluations are available 24 hours a day, 7 days a week. [facility] [phone] (9668) [facility] is one of the nation???s [facility] suicide prevention and crisis hotlines. [facility] operates 24 hours/day. Behavioral Health Response (local) [phone] (toll free) [phone] Behavioral Health Response (R) is a professionally staffed crisis response service. [facility] provides expert behavioral health, crisis response, and outreach services throughout the [facility], 24 hours a day, 7 days a week. /Veterans Suicide Hotline 2-824-022-TALK (1520) (Press 1) National Suicide Prevention Hotline 5-541-565-TALK (5148) 05/04 hotline available to anyone in suicidal crisis or emotional distress. Call will be routed to the nearest crisis center to you. [place] Hope-Line Network 4-318-USSHIGX (327-1006) 05/04 hotline that connects people who are depressed or suicidal, or those who are concerned about someone they love, automatically to a CONTACT [facility] or [facility] certified crisis center. Crisis Text Line Just send a text message to ???243723?? Live, trained crisis counselors available 05/04 via text message. You???ll receive an automated textasking you what your crisis is and within minutes, a live trained crisis counselor will answer yourtext. They will help you out of a moment of crisis and work with you to create a plan to continue to feel better. [facility] (Kids Under Twenty-One) Crisis Helpline 0-972-535-KUTO (3934) The [facility] Crisis Helpline is a confidential telephone hotline available to any youth who may be in need of assistance, referral information, or crisis service. The [facility] Helpline is one of a handful [facility] staffed exclusively by youth volunteers. LGBT Youth Suicide Hotline 4-812-2-U-NATHANIEL (733-843-8560) Crisis Nursery Help Line 787-431-7672 ([place]) [phone] ([place]) Kid Save 792-232-6486 Youth In Need 065-743-8517 Youth Emergency Service 364-408-1340 National [place] on Mental Illness ([facility]) [phone] CAMERA OPERATOR documented in this encounter Medications at [...] as of this encounter Progress Notes * Yudy Gloria - 08/31/2016 11:54 PM CST Carlos Kelly is a 46 y.o. male who presents for Behavioral Health intake evaluation at locationof ED room 11. Patient is alone and information was obtained from past medical records and patient. Transported by friend. Name of Associate School Psychologist/Relationship/phone #: none Collateral information obtained from [employer] Psychologist: No: ; Explain: pt unaccompanied Collateral information obtained from other source: Yes; Explain: chart review Release of Info Signed: no - Pt not admitted Referral Source: Referral Source: Family (08/31/16 8959) Referral Source Name and Number: Referral Source Name and Number: friend- won't tell friends name d/t lawsuit in progress (08/31/162327) RFV/CC: I've tried 130 psychiatrists, no one is accepting new pt's, and no PCP will keep seeing me (08/31/16 5690) Narrative Summary/History of Present Illness: Precipitating event(s) within past 24-72 hours leading to presentation to the hospital: Pt presentsto the ED for evaluation of anxiety. Pt reports he has not been able to secure a consistent MD for management of MH and medications. Pt reports he last saw a PCP, spent 2.5 hours with her doing background and hx, and her nurse called the next day and fired him . Pt reports he has attempted to reach out to more than 130 MH providers and no one is accepting new pts . While in the ED, this contract writer attempted to talk through some available options for follow up care however pt continuously gave rebuttals for not accepting or trying the options. Such reasons given by pt were they're not licensed , I'm not supposed to drive , I can't afford to do that , and I know they'll change the plan around . Pt presents alert/oriented and calm with flight of ideas. Pt denies SI stating I'm not going to lie so I can get admitted . Pt also denies HI, psychosis, access to guns, self injury, previous suicide attempts, and abuse hx. Pt reports his mother has hx of bipolar and/or psychosis and his brother has substance abuse issues. Pt reports he has been on Xanax 2mg for the past 14 years and from this assessment has been having medications filled with different doctors. Pt repeatedly tells this contract writer I'm not a med-seeker, but I'm starting to get hopeless about it . Pt makes reference multiple times to filing lawsuits against people and doctors that refuse to care for me . Per Dr. Marcum, pt will be d/c with plan to continue to attempt follow up with OP referrals and return for issues regarding safety. Pt understanding, but requesting to speak with RN to see if doctor will prescribe anymedication for tonight. Per ED visit on 07/17/2016: MD Craft - The patient also tells me he has anxiety. He does not appearanxious. He tells me he is out of his Xanax. This is the third visit that the patient has been out of his Xanax to this emergency department. A visit in January indicated he was out of Xanax early. The patient has a psychiatrist but tells me he cannot get in to see him because his doctor is an asshole and will not see him. I offered to give him a referral to a new psychiatrist but he declines. I declined to refill his Xanax which he was not happy with. Major Change/Loss/Stressor: job change/loss;financial (08/31/162347) Risk Assessment Otero-Suicide Severity Rating Scale Is this encounter related to suicidal behavior/attempt? : No (08/31/161950) Reported By: Patient (08/31/161950) 1. Do you currently wish you were or wished you could go to sleep and not wake up? : No (08/31/162334) 2. Have you actually had any thoughts of killing yourself? : No (08/31/162334) 3. Have you been thinking about how you might kill yourself? : No (08/31/162334) Access to Firearms: no (08/31/162342) If yes, plan to limit access: Impairment in Functioning: moderate Support Sytem: Support System:friends Current Providers/(Phone # if available): Psychiatrist: none Therapist: none Other services: none Current diagnosis: Panic D/O, unsp. depression Medical Care Provider: No primary care provider on file. Phone: None Past Treatment History: Previous psychiatric diagnoses and treatments: No (several psychiatrists in the past; no counselor)(08/31/162334) Has patient been discharged from a hospital within the last 30 days:no All Current Home Medications (per parent/caregiver report): Leonidasx Family History of Mental Illness: Mother-jessica/psychosis, brother-substance abuse Pertinent Psychosocial History: Employment Status: umeployed Legal Concerns Do you have any recent legal concerns?: denies (08/31/162346) Major Change/Loss/Stressor: job change/loss;financial (08/31/162347) Substance Abuse Screening: Chemical Abuse Screen Denies Chemical Abuse: Yes (08/31/162345) History of Withdrawal Symptoms: Denies past symptoms (08/31/162345) Substance Abuse Treatment Hx: Denies past history (08/31/162345) Mental Status Evaluation: Appearance: Within normal limits (08/31/162236) Behavior: Cooperative;Appropriate to situation (08/31/162347) Observed Emotional State: calm;cooperative (08/31/162348) Speech: Normal rate/tone;Tangential speech (08/31/162347) Thought Processes: Alert;Flight of ideas (08/31/162347) Social Judgement: Appropriate to situation (08/31/162347) Sensorium/Orientation:person, place, time/date and situation Cognition:average for level of education Depression: Symptoms: Feelings of hopelessness (08/31/162330) Anxiety: Symptoms: Generalized (08/31/162330) Jessica: Symptoms: Flight of ideas (08/31/162330) Eating Disorders: Hallucination Type: No problems reported or observed (08/31/162330) Delusion Type: No problems reported or observed (08/31/162330) Quality of Sleep:fair with generally restful sleep Hours of Sleep: varies Changes in Appetite:no change from normal Special Needs and Services: Plan/Disposition: Referral to OP referrals for substance abuse, psychiatry and counseling Consulting Physician: Jossue Attending Physician: N/A On-Call Psychiatrist: Hua Hand-Off Report Given: not applicable Provisional Diagnoses: ?? Primary Diagnosis: Generalized Anxiety D/O (F41.1) ?? Additional Diagnosis(es): R/O Malingering ?? Acute Medical: See medical assessment ?? Psychosocial: primary support group; access to OP MH services Legal Status: voluntarily Suicide Hotline Resources Provided: yes CAMERA OPERATOR documented in this encounter ED Notes * Debora Bueno RN - 09/01/2016 1:13 AM CST Pt DC with paperwork reviewing DC instructions, follow up care, and new prescriptions. Pt verbalized understanding CAMERA OPERATOR * Debora Bueno RN - 09/01/2016 1:09 AM CST Pt's belongings given back to pt. Pt aware of POC for DC CAMERA OPERATOR * Debora Bueno RN - 09/01/2016 12:57 AM CST MD Marcum at bedside for update on test results CAMERA OPERATOR * Debora Bueno RN - 09/01/2016 12:30 AM CST PT back from xray. Pt requesting this RN at bedside. Pt requesting O2 saturation. Pt in no distress, RR even and unlabored, equal rise and fall of chest. Pt made aware O2 is 99%. Pt denies any other needs at this time Friend remains at bedside CAMERA OPERATOR * Debora Bueno RN - 09/01/2016 12:14 AM CST Pt requesting xray of L elbow. made aware. Verbal order received. Friend, Kandi, at bedside. CAMERA OPERATOR * Debora Bueno RN - 08/31/2016 11:49 PM CST Per xray staff, pt refused Xray. Intake at bedside for assessment CAMERA OPERATOR * Alba Weiss RN - 08/31/2016 11:12 PM CST Intake notified. CAMERA OPERATOR * Debora Bueno RN - 08/31/2016 11:02 PM CST Report received from Allie RAMESH Assumed care at this time CAMERA OPERATOR * Kimmie Carter - 08/31/2016 10:56 PM CST Pt's jacket, phone, and hat left by family in the room, this PCT removed items and placed into locker E5. CAMERA OPERATOR * Alba Weiss RN - 08/31/2016 10:20 PM CST Pt arrived to ED 11 c/o increased anxiety. Agree w/ triage note. Pt asked multiple times who his doctor was going to be and when are we going to give him his medication for anxiety. Pt advised this RN can not give him medication until he was seen by a physician. Pt reports he has not been able to get in to see a primary care physician or psychiatrist d/t to them not taking new patients. Pt reports anxiety is so bad all he wants to do is sleep. Denies SI/HI. Pt a&ox4. Respirations even and unlabored. Skin PWD. Pt calm and cooperative. Family at the bedside. CAMERA OPERATOR * Arie Gordon PCA - 08/31/2016 10:12 PM CST Pt to ED room 11. Changed into blue paper scrubs by this PCT. Belongings removed from room include a pair of shoes, jeans with a belt, inhaler, and two t-shirts. Pt asking if Dr. Gauthier is here and requesting to have him as his doctor. Pt advised Dr. Gauthier is not working right now. Belongings bagged, labeled, and locked in locker E5. Back door is locked. Family member/friend at bedside. CAMERA OPERATOR * Peyton Munguia RN - 08/31/2016 9:03 PM CST Pt wanting to know if Abrahan RUSSELL is working tonight. CAMERA OPERATOR * Edin Marcum MD - 08/31/2016 7:33 PM CST HISTORY OF PRESENT ILLNESS Carlos Kelly, a 46 y.o. male presents to the ED with a Chief Complaint of Anxiety Subjective HPI Comments: 10:39 PM: Carlos Kelly is a 46 y.o. male with a history of DM and PTSD, who presents to the Emergency Department with complaints of anxiety. Patient recently saw a PA for psych at his PCP, and was told the next day they would no longer be seeing him. Patient does not have a psychiatrist/therapist. He states he has contacted <125 psychiatrists/PCPs with no openings until . HE is currently taking Xanax, and feels like there is no hope . Patient recently fell on the ice and is complaining of back and rib pain. He denies SI/HI. Physician(s): No primary care provider on file. History provided by: The patient Arrived by: Private vehicle Anxiety Presenting symptoms: depression Presenting symptoms: no suicidal thoughts Degree of incapacity (severity): Mild Onset quality: Unable to specify Timing: Unable to specify Progression: Unable to specify Treatment compliance: Most of the time Relieved by: Anti-anxiety medications Associated symptoms: anxiety REVIEW OF SYSTEMS Review of Systems Genitourinary: Positive for flank pain (left). Musculoskeletal: Positive for back pain. Psychiatric/Behavioral: Positive for dysphoric mood. Negative for suicidal ideas. The patient is nervous/anxious. Negative HI All other systems reviewed and are negative. [...] MEDICATIONS Discharge Medication List as of 09/01/2016 1:08 AM CONTINUE these medications which have CHANGED Details ALPRAZolam (XANAX) 2 mg tablet Take 1 Tablet (2 mg) by mouth 3 times daily as needed for Anxiety., Disp-21 Tablet, R-0 CONTINUE these medications which have NOT CHANGED Details sucralfate (CARAFATE) 1 gram tablet [...] Objective PHYSICAL EXAM INITIAL VS BP: (!) 153/105 (08/31/161949), Heart Rate: 81 bpm (08/31/161949), Resp: 18 (08/31/161949), Temp: 98.4 ??F (36.9 ??C) (08/31/161949), Temp src: Oral (08/31/161949), SpO2: 100 % (08/31/161949), Height: 6' 2 (188 cm) (08/31/161949), Weight: 130.6 kg (288 lb) (08/31/161949), BMI (Calculated):36.96 (08/31/161949) No LMP for male patient. Physical Exam Constitutional: He appears well-developed and well-nourished. No distress. HENT: Head: Normocephalic. Eyes: Conjunctivae and lids are normal. Neck: Neck supple. Cardiovascular: Normal rate and regular rhythm. Pulmonary/Chest: Effort normal and breath sounds normal. No accessory muscle usage. He has no decreased breath sounds. He has no rhonchi. He exhibits no tenderness. Abdominal: Soft. Bowel sounds are normal. He exhibits no distension. There is no tenderness. Musculoskeletal: Normal range of motion. No sig left elbow ttp or deformity. Good rom Neurological: He is alert. He has normal strength. No sensory deficit. Skin: Skin is warm and dry. Psychiatric: He exhibits a depressed mood. He expresses no homicidal and no suicidal ideation. Nursing note and vitals reviewed. DIAGNOSTICS LAB: Labs this ED Encounter - No data to display RADIOLOGY: XR CHEST PA AND LATERAL ED Interpretation negative XR ELBOW 2 VW LEFT ED Interpretation negative EKG: PROCEDURES Procedures MEDICAL DECISION MAKING AND PLAN OF CARE Pt has chronic mental illness issues He is not acute sick He denies si He has not f/u and reports several issues with all options for f/u or help such as transportation (even though he [facility]) or god wouldn't want me to try that therapy when a previous physician recommended hypnosis. MDM I have reviewed previous: notes I have reviewed nursing notes related to past medical history, social history, and review of systems and agree, unless otherwise noted. Consults: psychiatry ED Course 12:05 AM: Intake states patient does not meet admission criteria. Discharge Medication List as of 09/01/2016 1:08 AM CONTINUE these medications which have CHANGED Details ALPRAZolam (XANAX) 2 mg tablet Take 1 Tablet (2 mg) by mouth 3 times daily as needed for Anxiety., Disp-21 Tablet, R-0 CONTINUE these medications which have NOT CHANGED Details sucralfate (CARAFATE) 1 gram tablet [...] for Shortness of Breath. LAST VS BP: 139/89 (09/01/16 0030), Heart Rate: 82 bpm (09/01/160), Resp: 16 (09/01/1629), Temp: 99 ??F (37.2 ??C) (08/31/162102), Temp src: Oral (08/31/16 1950), SpO2: 99 % (09/01/1629) CLINICAL IMPRESSION Final diagnoses: [F41.1] Anxiety state (Primary) [W19.XXXA] Fall, initial encounter [S50.02XA] Left elbow contusion [S20.212A] Chest wall contusion, left, initial encounter DISPOSITION, EDUCATION AND MEDICATION RECONCILIATION Medications reconciled. See after visit summary for patient education on discharged patients. Follow up: see referral information Call in 1 day return , If symptoms worsen DISCHARGED HOME IN STABLE CONDITION. ATTESTATION STATEMENTS This note has been prepared by Tara Verde acting as a scribe for Dr. Edin Marcum on 09/01/2016 at 1:00 AM. The scribe's documentation has been prepared under my direction and personally reviewed by me, adelina, in its entirety on 09/01/16 at 1:52 AM. I confirm that the note above accurately reflects all work, treatment, procedures, and medical decision making performed by me. CAMERA OPERATOR documented in this encounter Plan of Treatment Not on file documented as of this encounter Procedures Procedure Name Priority Date/Time Associated Diagnosis Comments XR ELBOW 2 VW LEFT Stat 09/01/2016 12 :26 AM NEWS CAMERA OPERATOR XR CHEST PA AND LATERAL 2 VW Stat 09/01/2016 12:26 AM NEWS CAMERA OPERATOR documented in this encounter Results * XR ELBOW 2 VW LEFT (09/01/2016 12:26 AM NEWS CAMERA OPERATOR) Anatomical Region Laterality Modality Upper Extremity Computed Radiogr aphy 09/01/2016 12:2 6 AM NEWS CAMERA OPERATOR Impressions 09/01/2016 7:55 AM NEWS CAMERA OPERATOR IMPRESSION: Normal left elbow. ?? Narrative 09/01/2016 7:55 AM NEWS CAMERA OPERATOR EXAM: LEFT ELBOW ?? DATE: ??09/01/2016 12:26 AM HISTORY: Fall. ? TECHNIQUE: ??AP, lateral FINDINGS: There is no fracture or focal bone lesion. Joint spacing and alignment is normal. No soft tissue injury or foreign body is demonstrated. Procedure Note Miguel Harkins MD - 09/01/2016 EXAM: LEFT ELBOW DATE: 09/01/2016 12:26 AM HISTORY: Fall. TECHNIQUE: AP, lateral FINDINGS: There is no fracture or focal bone lesion. Joint spacing and alignment is normal. No soft tissue injury or foreign body is demonstrated. IMPRESSION IMPRESSION: Normal left elbow. Edin Marcum MD DIAGNOSTIC IMAGING O RDERABLES * XR CHEST PA AND LATERAL (09/01/2016 12:26 AM NEWS CAMERA OPERATOR) Anatomical Region Laterality Modality Chest Computed Radiogr aphy 09/01/2016 12:2 6 AM NEWS CAMERA OPERATOR Impressions 09/01/2016 9:14 AM NEWS CAMERA OPERATOR IMPRESSION: Negative chest. Location 1 Narrative 09/01/2016 9:14 AM NEWS CAMERA OPERATOR XR CHEST PA AND LATERAL DATE: 09/01/2016 12:26 AM HISTORY: Injury COMPARISON: 07/02/2015 FINDINGS: Examination of the chest in PA and lateral views fails to reveal evidence of active infiltration or consolidation in either lung and there is no effusion or pneumothorax. The heart, aorta and diaphragm, and other mediastinal structures are normal in size, shape and position. The bony structures are unremarkable. Procedure Note Vignesh Reyes MD - 09/01/2016 XR CHEST PA AND LATERAL DATE: 09/01/2016 12:26 AM HISTORY: Injury COMPARISON: 07/02/2015 FINDINGS: Examination of the chest in PA and lateral views fails to reveal evidence of active infiltration or consolidation in either lung and there is no effusion or pneumothorax. The heart, aorta and diaphragm, and other mediastinal structures are normal in size, shape and position. The bony structures are unremarkable. IMPRESSION IMPRESSION: Negative chest. Location 1 Edin Marcum MD DIAGNOSTIC IMAGING O RDERABLES documented in this encounter Visit Diagnoses Diagnosis Anxiety state- Primary Anxiety state, unspecified Fall, initial encounter Left elbow contusion Contusion of elbow Chest wall contusion, left, initial encounter documented in this encounter
--- OUTSIDE RECORDS SUMMARY | 2024-09-10 04:20 | XMS_ITS | Encounter Summary ---
Author Organization [facility] Address [address] [place] [address] Care Team Providers Care Gray Tender Name Role Phone Unavailable Primary Care Provider Unavailabl e Reason for Visit * Reason Comments Anxiety Pt was just seen and discharged at this ED. Pt reports they didn't do anything for me back there, they gave me a referral. Pt reports, I don't want to ER-hop, so I'll just check myself back in. Pt c/o anxiety, requesting refill of xanax. josh grace Encounter Details Date Type Department Care Team (Late st Contact Info) Description 03/07/2017 10:49 PM CDT - 03/07/2017 11:08 PM CDT Emergency [facility] Emergency Department [address] [place] [address] Tramaine Reyez MD [address] [place] [address] Chronic prescription benzodiazepine use (Primary [...] Sign Reading Time Taken Comments Blood Pressure 142/94 03/07/2017 10:47 PM CDT Pulse - - Temperature 36.6 ??C (97.8 ??F) 03/07/2017 10:47 PM C DT Respiratory Rate 18 03/07/2017 10:47 PM CDT Oxygen Saturation 98% 03/07/2017 10:47 PM CDT Inhaled Oxygen Concentration - - Weight 106.6 kg (235 lb) 03/07/2017 10:47 PM CDT Height 188 cm (6' 2 ) 03/07/2017 10:47 PM CDT Body Mass Index 30.17 03/07/2017 10:47 PM CDT documented in this encounter Medications at Time of Discharge Medication Sig Dispensed Refills Start Date End Date omeprazole (PriLOSEC) 40 mg Capsule, Delayed Release(E.C.) Take 40 mg by mouth daily. ibuprofen (MOTRIN) 600 mg tablet Take 1 Tablet (600 mg) by mouth every 6 hours as needed for Pain, Mild. 20 Tablet None 10/30/2016 fluticasone (FLONASE) 50 mcg/spray [place], Suspension Administer 2 Sprays in each nostril [...] as of this encounter ED Notes * Kathi Squires RN - 03/07/2017 11:03 PM CDT This rn in room with MD and warehouse order picker, Pt given resources to out pt walk in clinic, pt refusing to sign discharge paperwork, pt took copy of resources. Pt informed we have given he every resources available to us to help him at this time. * Tramaine Reyez MD - 03/07/2017 10:42 PM CDT HISTORY OF PRESENT ILLNESS Carlos Mcgee, a 47 y.o. male presents to the ED with a Chief Complaint of Anxiety Subjective History provided by: The patient and medical records Arrived by: Private vehicle Arrived from: Home Anxiety The patient is a 47 y/o male whom I just saw and discharged. He was dissatisfied with the fact thatI did not write a refill for him for his Xanax prescription. Upon discharge, he promptly signed back in with the same complaint. He had already received a dose of Xanax orally. He has no new complaints. He reiterates that he does not have a prescription or an appointment for at least a week. He still has no SI or HI. REVIEW OF SYSTEMS Review of Systems PAST MEDICAL HISTORY REVIEWED MEDICAL: Patient has [...] Objective PHYSICAL EXAM INITIAL VS BP: (!) 142/94 (03/07/172246), Heart Rate: 81 bpm (03/07/172246), Resp: 18 (03/07/172246), Temp:97.8 ??F (36.6 ??C) (03/07/172246), Temp src: Oral (03/07/172246), SpO2: 98 % (03/07/172246), Height: 6' 2 (188 cm) (03/07/172246), Weight: 106.6 kg (235 lb) (03/07/172246), BMI (Calculated): 30.16 (03/07/172246) No LMP for male patient. Physical Exam Constitutional: This is a well-developed, well-nourished male lying in the bed in no acute distress. Head: Normocephalic, atraumatic. Eyes: Pupils are PERRL, EOMI. Sclera non-icteric. ENT: Oropharynx is clear. Moist mucous membranes. Neck: Supple. No meningismus. Respiratory: Good air entry bilaterally. Normal respiratory effort. No wheezes. CV: Regular rate and rhythm without murmur. Musculoskeletal: Moves all four extremities. No acute gross deformity. Skin: Warm and dry. No rash. Neurologic: Cranial nerves II, III, IV, and VII intact and symmetric bilaterally. Sensation is intact to light touch throughout. Psychiatric: Alert and oriented x 3. Denies SI or HI. DIAGNOSTICS LAB: Labs this ED Encounter - No data to display RADIOLOGY: No orders to display PROCEDURES Procedures MEDICAL DECISION MAKING AND PLAN OF CARE MDM I have reviewed previous: notes I have reviewed nursing notes related to past medical history, social history, and review of systems and agree, unless otherwise noted. ED Course Patient presents again for his same anxiety complaints after just being discharged by me for the same. Diarrhea to rated to him that I would not be writing him a prescription and that he would be discharged. The entire discussion was undertaken with the warehouse order picker in the room. He had been provided with outpatient referrals and resources including treatment centers and help lines. Reiteratedto him that a primary care physician could also be writing these prescriptions for him. He is discharged home at this time. . New Prescriptions for this Encounter LAST VS BP: (!) 142/94 (03/07/172246), Heart Rate: 81 bpm (03/07/172246), Resp: 18 (03/07/172246), Temp: 97.8 ??F (36.6 ??C) (03/07/172246), Temp src: Oral (03/07/172246), SpO2: 98 % (03/07/172246) CLINICAL IMPRESSION Final diagnoses: [Z79.899] Chronic prescription benzodiazepine use (Primary) DISPOSITION, EDUCATION AND MEDICATION RECONCILIATION Medications reconciled. See after visit summary for patient education on discharged patients. ATTESTATION STATEMENTS This note was transcribed using [employer] speaking computerized voice recognition without a human malted milk supervisor. This report may or may not have been adjusted for typographical, grammaticaland syntax errors. documented in this encounter Plan of Treatment Not on file documented as of this encounter Visit Diagnoses Diagnosis Chronic prescription benzodiazepine use- Primary documented in this encounter
--- OUTSIDE RECORDS SUMMARY | 2024-09-10 04:21 | XMS_ITS | Encounter Summary ---
Author Organization [facility] Address [address] [place] [address] Care Team Providers Care Dairy Nutrition Consultant Name Role Phone Unavailable Primary Care Provider Unavailabl e Reason for Visit * Reason Comments Double Vision c/o double vision an d burning to right eye. reports taking Abx over past week for sinus infection. also states headaches over past week and reports getting peroxide in right eye last night. no swelling or redness noted to right eye. rates headache 6/10. speaking clearly with ease * Auth/Cert - Closed Specialty Diagnoses / Procedures Referred By Redd t Referred To Contact Emergency Medicine [facility] Emergency Dept [address] [place] [address] Referral ID Status Reason Start Date Expiration Date Visits Re quested Visits Authorized [id number] Closed 1 1 Encounter Details Date Type Department Care Team (Late st Contact Info) Description 03/13/2014 12:01 AM CDT - 03/13/2014 1:49 AM CDT Emergency [facility] Emergency Department [address] [place] [address] Jamie Luna MD [address] [place] [address] Chemical exposure of eye (Primary Dx); Anxiety; Dizziness Discharge Disposition: Home or Self Care Social [...] Sign Reading Time Taken Comments Blood Pressure 135/87 03/13/2014 1:13 AM CDT Pulse 97 03/12/2014 11:54 PM CDT Temperature 37.1 ??C (98.8 ??F) 03/12/2014 11:54 PM C DT Respiratory Rate 18 03/13/2014 1:13 AM CDT Oxygen Saturation 98% 03/13/2014 1:13 AM CDT Inhaled Oxygen Concentration - - Weight 117.9 kg (260 lb) 03/12/2014 11:54 PM CDT Height 188 cm (6' 2 ) 03/12/2014 11:54 PM CDT Body Mass Index 33.38 03/12/2014 11:54 PM CDT documented in this encounter Discharge Instructions * Attachments The following attachments cannot be sent through Care Everywhere. * DIZZINESS ([place]) * ANXIETY DISORDER ([place]) documented in this encounter Medications at Time of Discharge Medication Sig Dispensed Refills Start Date End Date omeprazole (PRILOSEC) 40 mg Capsule, Delayed Release(E.C.) Take 40 mg by mouth daily. 03/04/2015 amoxicillin (AMOXIL) 875 mg tablet Take 875 mg by mouth every 12 hours. 08/28/2014 fluticasone (FLONASE) 50 mcg/spray Both Nostril SpSnIndications:allergi c rhinitis prevention Administer 2 Sprays in each nostril daily . 12/03/2015 amoxicillin-clavulanate (AUGMENTIN) 875-125 mg Oral tablet Take 1 Tab by mouth every 12 hours. 08/28/2014 pseudoephedrine (SUDAFED) 30 mg Oral tablet Take 60 mg by mouth every 4 hours as needed. 08/28/2014 levocetirizine (XYZAL) 5 mg Oral tablet Take 1 Tab by mouth Daily LATE. 20 Tab 0 06/26/2013 08/28/2014 alprazolam (XANAX) 2 mg Oral tablet Take 2 mg by mouth 3 times daily. 12/29/2009 01/08/2015 pantoprazole (PROTONIX) 40 mg Oral TbEC Take 40 mg by mouth daily. 08/28/2014 promethazine (PHENERGAN) 25 mg Oral tablet Take 25 mg by mouth every 6 hours as needed for Nausea/Emesis . 12/03/2015 escitalopram (LEXAPRO) 10 mg Oral Tab Take 5 mg by mouth daily. 08/28/2014 duloxetine (CYMBALTA) 60 mg Oral CpDR Take 60 mg by mouth daily. Pt non compliant 08/28/2014 documented as of this encounter ED Notes * Jamie Luna MD - 03/13/2014 1:06 AM CDT HISTORY OF PRESENT ILLNESS Carlos Mcgee, a 44 y.o. male presents to the ED with a Chief Complaint of Double Vision HPI Comments: 44-year-old male presents to the emergency room with multiple complaints including anxiety, blurry vision secondary to getting peroxide in his eye yesterday, chronic dizziness, and sinus infection. Patient states that he's had anxiety for a long time and feels like is getting worse. He states that he accidentally got peroxide in his eye and has blurry vision to his right eye since then. He has also had a sinus infection with sinus drainage for 2 weeks and is currently taking antibiotics. He states that he went to [facility] emergency room earlier this evening with the same complaints but was not given any diagnosis. REVIEW OF SYSTEMS Review of Systems Constitutional: Negative for fever and chills. HENT: Positive for sinus pressure. Negative for ear pain, congestion, sore throat, neck pain and neck stiffness. Eyes: Positive for visual disturbance. Negative for pain, discharge and redness. Respiratory: Negative for cough and shortness of breath. Cardiovascular: Negative for chest pain and leg swelling. Gastrointestinal: Negative for nausea, vomiting, abdominal pain and diarrhea. Genitourinary: Negative for dysuria. Musculoskeletal: Negative for back pain and joint swelling. Skin: Negative for wound. Neurological: Positive for headaches. Negative for syncope and weakness. Psychiatric/Behavioral: Negative for suicidal ideas, behavioral problems and confusion. The patientis nervous/anxious. PAST MEDICAL HISTORY REVIEWED MEDICAL Patient has a past medical history of Depression (anxiety); Anxiety; Panic attacks; and Diverticulitis. SURGICAL Patient has past surgical history that includes chg removal gallbladder. FAMILY Patient's family history is not on file. SOCIAL reports that he has never smoked. He does not have any smokeless tobacco history on file. He reports that he uses illicit drugs (Prescription Drugs). He reports that he does not drink alcohol. PROBLEM LIST Patient does not have a problem list on file. ALLERGIES Bactrim; Contrast; Levaquin; Lidocaine; Morphine; and Sulfa (sulfonamide antibiotics) HOME MEDICATIONS Patient's Home Medications Current Home Medications ALPRAZOLAM (XANAX) 2 MG ORAL TABLET AMOXICILLIN (AMOXIL) 875 MG TABLET AMOXICILLIN-CLAVULANATE (AUGMENTIN) 875-125 MG ORAL TABLET DULOXETINE (CYMBALTA) 60 MG ORAL CPDR ESCITALOPRAM (LEXAPRO) 10 MG ORAL TAB FLUTICASONE (FLONASE) 50 MCG/SPRAY BOTH NOSTRIL SPSN IPRATROPIUM BROMIDE (ATROVENT) 0.03 % BOTH NOSTRIL SPRY LEVOCETIRIZINE (XYZAL) 5 MG ORAL TABLET OMEPRAZOLE (PRILOSEC) 40 MG CAPSULE, DELAYED RELEASE(E.C.) PANTOPRAZOLE (PROTONIX) 40 MG ORAL TBEC PROMETHAZINE (PHENERGAN) 25 MG ORAL TABLET PSEUDOEPHEDRINE (SUDAFED) 30 MG ORAL TABLET Medications Modified during this Encounter Medications Discontinued during this Encounter PHYSICAL EXAM INITIAL VS BP: 135/84 mmHg (03/12/142353), Heart Rate (Monitored): 97 bpm (03/12/142353), Resp: 18 (354), Temp: 98.8 ??F (37.1 ??C) (03/12/142353), Temp src: Oral (03/12/142353), SpO2: 95 % (03/12/142353), Height: 6' 2 (188 cm) (03/12/142353), Weight: 117.935 kg (03/12/142353), BMI (Calculated): 33.45 (03/12/142353) No LMP for male patient. Physical Exam Nursing note and vitals reviewed. Constitutional: He is oriented to person, place, and time. He appears well- developed and well-nourished. HENT: Head: Normocephalic and atraumatic. Right Ear: Tympanic membrane and ear canal normal. Left Ear: Tympanic membrane and ear canal normal. Mouth/Throat: Uvula is midline, oropharynx is clear and moist and mucous membranes are normal. Eyes: Conjunctivae and EOM are normal. Pupils are equal, round, and reactive to light. No scleral icterus. Fundoscopic exam: The right eye shows no hemorrhage and no papilledema. The left eye shows no hemorrhage and no papilledema. Slit lamp exam: The right eye shows no corneal abrasion, no corneal ulcer, no foreign body and no fluorescein uptake. The left eye shows no corneal abrasion, no corneal ulcer, no foreign body and no fluorescein uptake. Neck: Normal range of motion. Neck supple. No tracheal deviation present. No thyromegaly present. Cardiovascular: Regular rhythm and normal heart sounds. Pulmonary/Chest: Effort [...] cranial nerve deficit or sensory deficit. He displays a negative Romberg sign. GCS eye subscore is 4. GCSverbal subscore is 5. GCS motor subscore is 6. Skin: Skin is warm and dry. Psychiatric: His speech is normal and behavior is normal. Judgment and thought content normal. His mood appears anxious. Cognition and memory are normal. DIAGNOSTICS LAB: Results for orders placed during the hospital encounter of 03/13/14 (from the past 24 hour(s)) POC GLUCOSE Result Value Range POC GLUCOSE 114 (*) 65 - 99 mg/dL CLIA LICENSE [id number] RADIOLOGY: CT HEAD WO CONTRAST Radiologist Impression: IMPRESSION: No acute intracranial process. Dictated from location 4 EKG: PROCEDURES Procedures MEDICAL DECISION MAKING AND PLAN OF CARE REEVALUATION 1:10 AM Patient reevaluted and remain in stable condition, no new complaints. Instructed to return to ER if symptoms worse or new symptoms occur and to follow up with doctor. CASE DISCUSSED . New Prescriptions for this Encounter LAST VITALS BP: 135/84 mmHg (03/12/142353), Heart Rate (Monitored): 97 bpm (03/12/142353), Resp: 18 (201896), Temp: 98.8 ??F (37.1 ??C) (03/12/142353), Temp src: Oral (03/12/142353), SpO2: 95 % (03/12/142353) CLINICAL IMPRESSION Final diagnoses: Chemical exposure of eye Anxiety Dizziness CODING MDM Coding Reviewed: nursing note, vitals and previous chart Interpretation: labs and CT scan DISPOSITION, EDUCATION AND MEDICATION RECONCILIATION Medications reconciled. See after visit summary for patient education on discharged patients. * Lottie Stanley RN - 03/13/2014 12:28 AM CDT Blood sugar 114. Respirations even and non labored. AOx4. Pt to CT. * Lottie Stanley RN - 03/13/2014 12:19 AM CDT MD at bedside. * Lottie Stanley RN - 03/13/2014 12:16 AM CDT MD at bedside. * Lottie Stanley RN - 03/13/2014 12:12 AM CDT Pt presents c/o double vision intermittently since yesterday post hydrogen peroxide splashing intohis right eye. Pt reports pain in both eyes. Pt states I was next to a hose so I washed my eyes out right away. Pt reports having a sinus infection for approx 1 week and experiencing intermittent vertigo. Pt states I've also had a pressure headache come and go. Pt AOx4. Respirations even and non labored. documented in this encounter Plan of Treatment Not on file documented as of this encounter Procedures Procedure Name Priority Date/Time Associated Diagnosis Comments CT HEAD WO CONTRAST Stat 03/13/2014 1 2:34 AM CDT POC GLUCOSE Routine 03/13/2014 12:27 AM CDT documented in this encounter Results * CT HEAD WO CONTRAST (03/13/2014 12:34 AM CDT) Anatomical Region Laterality Modality Head Computed Tomogra phy 03/13/2014 12:2 6 AM CDT Addenda Addendum by Balta Chand MD on 03/13/2014 2:59 PM CDT DLP: ??1276.27 mGy-cm Impressions 03/13/2014 12:51 AM CDT IMPRESSION: No acute intracranial process. Dictated from location 4 Narrative 03/13/2014 12:[address] HEAD WITHOUT CONTRAST, ??Mar 13, 2014 12:26:04 AM INDICATION: Headache TECHNIQUE: Multiple contiguous axial images were obtained from the skull base through the vertex without intravenous contrast enhancement. COMPARISON: July 01, 2006 FINDINGS: No acute intracranial process identified. ??Specifically, no mass, mass effect, midline shift or hydrocephalus is identified. No intra-axial or extra-axial hemorrhage is identified. There is no evidence of acute infarct. Bony calvarium is intact. The is retention cyst in the right maxillary sinus is not different since prior exam. The paranasal sinuses and mastoid air cells are otherwise clear. Procedure Note Balta Chand MD - 03/13/2014 CT HEAD WITHOUT CONTRAST, Mar 13, 2014 12:26:04 AM INDICATION: Headache TECHNIQUE: Multiple contiguous axial images were obtained from the skull base through the vertex without intravenous contrast enhancement. COMPARISON: July 01, 2006 FINDINGS: No acute intracranial process identified. Specifically, no mass, mass effect, midline shift or hydrocephalus is identified. No intra-axial or extra-axial hemorrhage is identified. There is no evidence of acute infarct. Bony calvarium is intact. The is retention cyst in the right maxillary sinus is not different since prior exam. The paranasal sinuses and mastoid air cells are otherwise clear. IMPRESSION IMPRESSION: No acute intracranial process. Dictated from location [address] ORDERABLES * (ABNORMAL) POC GLUCOSE (03/13/2014 12:27 AM CDT) GLUCOSE POC 114(H) 65 - 99 mg/dL INTERFACE SYSTEM CLIA LICENSE [id number] INTERF AMELIA SYSTEM Blood 03/13/2014 12:2 7 AM CDT 03/13/2014 12:27 AM CDT Jamie Luna MD POINT OF CARE GABBY Gruber INTERFACE SYSTEM Refer to clinic/hospital department documented in this encounter Visit Diagnoses Diagnosis Chemical exposure of eye- Primary Contact with and (suspected) exposure to other potentially hazardous chemicals Anxiety Anxiety state, unspecified Dizziness Dizziness and giddiness documented in this encounter Active and Recently Administered Medications
--- OUTSIDE RECORDS SUMMARY | 2024-09-10 04:21 | XMS_ITS | Encounter Summary ---
Author Organization [email or web address] Address [address] [place] [address] Care Team Providers Care Death Claim Examiner Name Role Phone Unavailable Primary Care Provider Unavailabl e Reason for Visit * Reason Comments Cough pt with cough x one week. pt states coughing up yellow sputum. pt states sob and nasal drainage. pt also wanting refill on xanax. pt also states bs has been elevated since being on steroids for neck pain. pt very aloof in triage. pt denies si/hi but flat affect and states depression due situration. * Auth/Cert - Closed Specialty Diagnoses / Procedures Referred By Redd mobley Referred To Contact Emergency Medicine [facility] Emergency Dept [address] [place] [address] Referral ID Status Reason Start Date Expiration Date Visits Re quested Visits Authorized [id number] Closed 1 1 Encounter Details Date Type Department Care Team (Late st Contact Info) Description 01/29/2015 11:56 PM CDT - 01/30/2015 1:02 AM CDT Emergency [facility] Emergency Department [address] [place] [address] Bartolo Amezcua MD [address] [place] [address] Drug-seeking behavior (Primary Dx); URI (upper respiratory infection) Discharge Disposition: Left Against Medical Advice Social [...] Sign Reading Time Taken Comments Blood Pressure 159/93 01/29/2015 9:24 PM CDT Pulse 88 01/29/2015 9:24 PM CDT Temperature 36.4 ??C (97.6 ??F) 01/29/2015 9:24 PM CD T Respiratory Rate 20 01/29/2015 9:24 PM CDT Oxygen Saturation 97% 01/29/2015 9:24 PM CDT Inhaled Oxygen Concentration - - Weight 133.5 kg (294 lb 5 oz) 01/29/2015 9:24 PM CDT Height 188 cm (6' 2 ) 01/29/2015 9:24 PM CDT Body Mass Index 37.79 01/29/2015 9:24 PM CDT documented in this encounter Medications at Time of Discharge Medication Sig Dispensed Refills Start Date End Date albuterol 90 mcg/Actuation HFA inhaler Take 2 Puffs by inhalation every 6 hours as needed for Shortness of Breath. ALPRAZolam (XANAX) 2 mg tablet Take 1 Tab (2 mg) by mouth 3 times daily as needed for Anxiety. 30 Tab 0 01/08/2015 07/02/2015 HYDROcodone-acetaminoph en (NORCO) 5-325 mg tablet Take 1 Tab by mouth every 4 hours as needed for Pain, Moderate. Max Daily Amount: 6 Tabs 30 Tab None 01/08/2015 07/02/2015 ibuprofen (MOTRIN) 800 mg tablet Take 800 mg by mouth every 6 hours as needed for Pain, Mild. 5 ondansetron (ZOFRAN ODT) 4 mg Tablet, Rapid Dissolve Place 1 Tab (4 mg) under tongue every 6 hours as needed for Nausea. 20 Tab none 11/08/2014 07/02/2015 cyclobenzaprine (FLEXERIL) 5 mg Tablet Take 1 Tab by mouth 3 times daily as needed for Pain or Spasm. 30 Tab 0 08/28/2014 07/02/2015 omeprazole (PRILOSEC) 40 mg Capsule, Delayed Release(E.C.) Take 40 mg by mouth daily. 03/04/2015 fluticasone (FLONASE) 50 mcg/spray Both Nostril SpSnIndications:allergi c rhinitis prevention Administer 2 Sprays in each nostril daily . 12/03/2015 promethazine (PHENERGAN) 25 mg Oral tablet Take 25 mg by mouth every 6 hours as needed for Nausea/Emesis . 12/03/2015 documented as of this encounter ED Notes * Esdras Ayala, RN - 01/30/2015 12:20 AM CDT Pt presents to ED c/o cough. This nurse inquired to pt's cough to which pt responds Trev, that doctor. Treats me like I'm a drug seeker. (Pt pulls out a large stack of $20s) I have $6,000 right here. 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 [facility] when I know the last time I was here Dr. Gauthier prescribed me xanax. In this hospital. Pt states he has had sweats and a cough with phlegm, denies fever. States he takes steroids for his neck that didn't help but raised his blood sugar. Pt reports last BS at home of 129. Pt states he has yellow nasal drainage. Pt speaks in full clear sentences. Res pirations even and unlabored. NAD, will continue to monitor. * Bartolo Amezcua MD - 01/29/2015 11:59 PM CDT HISTORY OF PRESENT ILLNESS Carlos Mcgee, a 44 y.o. male presents to the ED with a Chief Complaint of Cough Subjective HPI Comments: 12:06 AM Carlos Mcgee is a 44 y.o. male with h/o anxiety, depression and DM who presents to the ED c/o cough. Pt reports he went to 1 week ago and was given Prednisone and Augmentin without relief. Pt also uses albuterol inhaler. Still with SOB and chest tightness. Pt also with runny nose, ear pain, and sinus congestion. Pt reports cough is worse in the morning. Pt also reports anxiety sx. There are no other complaints at this time. PCP: No primary provider on file. Psych: Dr. Rosales- appt to see him on 02/08. History provided by: The patient Arrived by: Private vehicle Arrived from: Home REVIEW OF SYSTEMS Review of Systems Constitutional: Negative. Negative for activity change. HENT: Positive for congestion, ear pain, postnasal drip, rhinorrhea and sinus pressure. Eyes: Negative. Negative for pain. Respiratory: Positive for cough, chest tightness and shortness of breath. Cardiovascular: Negative. Negative for chest pain. Gastrointestinal: Negative. Negative for nausea and abdominal pain. Endocrine: Negative. Genitourinary: Negative. Musculoskeletal: Negative. Negative for neck pain. Skin: Negative. Negative for pallor and rash. Neurological: Negative. Negative for syncope. Psychiatric/Behavioral: Positive for dysphoric mood. Negative for behavioral problems. The patient is nervous/anxious. All other systems reviewed and are negative. PAST MEDICAL HISTORY REVIEWED MEDICAL: Patient has a past medical history of Depression (anxiety); Anxiety; Panic attacks; Diverticulitis;Diverticulitis; and Diabetes. SURGICAL: Patient has past surgical history that includes chg removal gallbladder and cholecystectomy. FAMILY: Patient's family history is not on file. SOCIAL: reports that he has never smoked. He does not have any smokeless tobacco history on file. He reports that he uses illicit drugs (Prescription Drugs). He reports that he does not drink alcohol. No history on file. Social History Other Topics Concern ??? Not on file PROBLEM LIST: Patient has Cervical stenosis of spinal canal; Costochondral chest pain; Paresthesias with subjective weakness; PTSD (post-traumatic stress disorder); GERD (gastroesophageal reflux disease); Diabetesmellitus type 2, controlled, without complications; Blurry vision, bilateral; Anxiety; Neck pain; and Chest pain on his problem list. ALLERGIES Bactrim; Contrast; Levaquin; Lidocaine; Morphine; Paxil; Percocet; and Sulfa (sulfonamide antibiotics) HOME MEDICATIONS Patient's Home Medications Current Home Medications ALBUTEROL 90 MCG/ACTUATION HFA INHALER ALPRAZOLAM (XANAX) 2 MG TABLET CYCLOBENZAPRINE (FLEXERIL) 5 MG TABLET FLUTICASONE (FLONASE) 50 MCG/SPRAY BOTH NOSTRIL SPSN HYDROCODONE-ACETAMINOPHEN (NORCO) 5-325 MG TABLET IBUPROFEN (MOTRIN) 800 MG TABLET OMEPRAZOLE (PRILOSEC) 40 MG CAPSULE, DELAYED RELEASE(E.C.) ONDANSETRON (ZOFRAN ODT) 4 MG TABLET, RAPID DISSOLVE PROMETHAZINE (PHENERGAN) 25 MG ORAL TABLET Medications Modified during this Encounter Medications Discontinued during this Encounter Objective PHYSICAL EXAM INITIAL VS BP: 159/93 mmHg (01/29/152123), Heart Rate (Monitored): (not recorded), Resp: 20 (01/29/152123), Temp: 97.6 ??F (36.4 ??C) (01/29/152123), Temp src: Oral (01/29/152123), SpO2: 97 % (01/29/152123), Height: 6' 2 (188 cm) (01/29/152123), Weight: 133.5 kg (01/29/152123), BMI (Calculated): 37.87(01/29/152123) No LMP for male patient. Physical Exam Constitutional: He is oriented to person, place, and time. He appears well- developed and well-nourished. HENT: Head: Normocephalic. Mouth/Throat: Oropharynx is clear and moist. Mild turbinate edema. Poor palate elevation but no obvious edema or swelling. Eyes: Conjunctivae and EOM are normal. Pupils are equal, round, and reactive to light. Neck: Neck supple. No thyromegaly present. Cardiovascular: Normal rate, normal heart sounds and intact distal pulses. No murmur heard. Pulmonary/Chest: Effort normal and breath sounds normal. No stridor. No respiratory distress. He has no wheezes. He exhibits no tenderness. Abdominal: Soft. Bowel sounds are normal. He exhibits no distension. There is no tenderness. There is no guarding. Musculoskeletal: Normal range of motion. He exhibits no edema. Lymphadenopathy: He has no cervical adenopathy. Neurological: He is alert and oriented to person, place, and time. He has normal reflexes. No cranial nerve deficit. Skin: Skin is warm and dry. No rash noted. Psychiatric: He has a normal mood and affect. His behavior is normal. Judgment and thought content normal. Nursing note and vitals reviewed. DIAGNOSTICS LAB: RADIOLOGY: No orders to display EKG: PROCEDURES Procedures MEDICAL DECISION MAKING AND PLAN OF CARE 44 year old with anxiety and chronic sinusitis here with nasal congestion, postnasal drip, cough [id number]. Seen at 1 week ago, treated with abx, steroids, albuterol. Initally better, now still feels like he needs to cough. Patient also provides a very rambling story regarding being out of Xanax as of yesterday. He has had multiple fills in the last month and a half at [facility] for varying amounts of Xanax, most recently on 01/08/15 when he was given [place] and Xanax. Check with [facility], confirmed similar presentations for sinusitis and Xanax refills at [facility], [facility], etc. Spoke with patient at length about expectant course of URI. Also explained that I do not provide Xanax, although I am happy to provide him with an alternative medication which he did not seem to want. Plan is CXR andtreat for allergic sinusitis. REEVALUATION 12:55 AMpatient apparently left AMA at triage. He did not inform me or the nurse about his decisionuntil after the fact. He seemed very upset that we were not providing him with the Xanax he requested. I have explained to him that I am happy to provide him with Valium which is the same class but that he really should get his dictations for Anxiety from a single physician. Patient also had a URI and refused multiple medications including antihistamines other nasal steroids. He left before any information to be provided Or scrips could be provided for him. CASE DISCUSSED . New Prescriptions for this Encounter LAST VS BP: 159/93 mmHg (01/29/152123), Heart Rate (Monitored): (not recorded), Resp: 20 (01/29/152123), Temp: 97.6 ??F (36.4 ??C) (01/29/152123), Temp src: Oral (01/29/152123), SpO2: 97 % (01/29/152123) CLINICAL IMPRESSION Final diagnoses: None CODING MDM Coding Reviewed: previous chart, nursing note and vitals Interpretation: SP02 I have reviewed nursing notes and agree unless otherwise mentioned. DISPOSITION, EDUCATION AND MEDICATION RECONCILIATION Medications reconciled. See after visit summary for patient education on discharged patients. This note has been prepared by Tila Young acting as a scribe for Dr. Bartolo Amezcua on 01/29/2015 at 12:56 AM . The scribe's documentation has been prepared under my direction and personally reviewed by me, sss,in its entirety on 01/30/2015 at 12:56 AM. I confirm that the note above accurately reflects all work, treatment, procedures, and medical decision making performed by me. * Silvina Spivey RN - 01/29/2015 9:36 PM CDT Pavel from intake notified of pt. documented in this encounter Plan of Treatment Not on file documented as of this encounter Visit Diagnoses Diagnosis Drug-seeking behavior- Primary Other, mixed, or unspecified nondependent drug abuse, unspecified URI (upper respiratory infection) Acute upper respiratory infections of unspecified site documented in this encounter
--- OUTSIDE RECORDS SUMMARY | 2024-09-10 04:21 | XMS_ITS | Encounter Summary ---
[facility] Organization [facility] Address [address] [place] [address] Care Team Providers Care Assistant Financial Accountant Name Role Phone Unavailable Primary Care Provider Unavailabl e Reason for Visit * Reason Comments Abdominal Pain C/o mid abdominal pa in, nausea no vomiting, increased dyspepsia/flatulence over the past week. was taking large amounts of Execdrin and Ibuprofen for RUSSO about 1 month ago. Also c/o feeling nervous/anxious due to his lifestyle , by sts he is just so stressed , unwilling to tell this RN what has been causing his stress. Encounter Details Date Type Department Care Team (Late st Contact Info) Description 08/18/2016 11:19 AM SUPERINTENDENT NONSELLING - 08/18/2016 3:31 PM SUPERINTENDENT NONSELLING Emergency [facility] Emergency Department [address] [place] [address] Robby Fan MD NO ADDRESS ON FILE Generalized abdominal pain (Primary Dx); Generalized anxiety disorder Discharge Disposition: Home or Self Care [...] Sign Reading Time Taken Comments Blood Pressure 142/71 08/18/2016 10:50 AM SUPERINTENDENT NONSELLING Pulse - - Temperature 36.6 ??C (97.8 ??F) 08/18/2016 10:[address] Respiratory Rate 18 08/18/2016 10:50 AM SUPERINTENDENT NONSELLING Oxygen Saturation 99% 08/18/2016 10:50 AM SUPERINTENDENT NONSELLING Inhaled Oxygen Concentration - - Weight 115.7 kg (255 lb) 08/18/2016 10:50 AM SUPERINTENDENT NONSELLING Height 188 cm (6' 2 ) 08/18/2016 10:50 AM SUPERINTENDENT NONSELLING Body Mass Index 32.74 08/18/2016 10:50 AM SUPERINTENDENT NONSELLING documented in this encounter Discharge Instructions * Discharge Instructions* Robby Fan MD - 08/18/2016 3:22 PM SUPERINTENDENT NONSELLING 1. Continue your current medication. 2. A renewal of Xanax is issued but for a limited time. 3. You will be contacted by our director of resource development regarding follow up. Given the ongoing nature of your issues establishing with a primary provider is critical to direct follow up and ongoing treatment. 4. Today's abdominal scan reveals thickening of the wall of the colon. This is not new and you indicate two prior colonoscopies in the past three years; however, in the face iof your discomfort follow up is very important. Use the referral and call Dr. Sanchez's office by 24 hours to arrange follow up. Please follow up with the [place] for psychiatric services or contact one of the below counseling referrals: [phone] [phone] [facility]: [phone] [facility]: [phone] [facility]: [phone] [facility] Services: [phone] If depression worsen return to the hospital as needed. Suicide Prevention/Crisis Hotlines [facility] - Behavioral Health Intake Department [phone] [facility] Behavioral Health Intake Department is professionally staffed and offers free, confidential evaluations for anyone needing assistance with a psychiatric, behavioral or addictive disorder. Evaluations, as well as referrals to physicians or community resources, are available 24 hours aday, 7 days a week. [facility] [phone] ([phone]) [facility] is one of the nation???s oldest suicide prevention and crisis hotlines. [facility] operates 24 hours a day, 7 days a week, 365 days a year. Behavioral Health Response ([facility]) [phone] (toll free) Behavior[facility] Health Response ([facility]) is a professionally staffed crisis response service. [facility] provides expert behavioral health, crisis response, and outreach services, 24 hours a day, seven days a week to agencies and companies worldwide. National Suicide Prevention Hotline 0-651-403-TALK (2656) A free, 24-hour hotline available to anyone in suicidal crisis or emotional distress. Your call will be routed to the nearest crisis center to you. National [facility] 3-923-AIPRSUW KUTO (Kids Under Twenty-One) Crisis Helpline 8-075-412-BETSY (4701) Youth staffed every day after 4pm SUPERINTENDENT NONSELLING The [facility] Crisis Helpline is a confidential telephone hotline available to any youth who may be in need of assistance, referral information or crisis services. The [facility] Helpline is one of a handful [facility] staffed exclusively by youth volunteers. National [facility]ness ([facility]) [phone] RINTENDENT NONSELLING documented in this encounter Medications at Time [...] daily before meals and at bedtime. 06/04/2017 ALPRAZolam (XANAX) 0.5 mg tablet Take 2 Tablet (1 mg) by mouth 3 times daily. 20 Tablet None 08/18/2016 09/01/2016 omeprazole (PriLOSEC) 40 mg Capsule, Delayed Release(E.C.) [...] as of this encounter Progress Notes * Yuridia Chun - 08/18/2016 2:55 PM CST Presented to the ED for assessment. Reviewed chart. Spoke to pt. Pt reports that his ride, a lady that brought him, needs to leave and he is unable to stay for the assessment. Pt denies SI,HI. No psychosis reported or noted. Pt states he has been depressed, he has a hx of anxiety according to chart. Dr. Fan reports pt was tearful earlier. Pt is here due to abdominal pain. Let Dr. Fan knowabout pt declining assessment. Offered to pt in resources for pt. Dr. Fan requested intake add those to discharge instructions, so referrals given [facility] follow [facility]. RINTENDENT NONSELLING documented in this encounter ED Notes * Tutu Davis, RN - 08/18/2016 3:31 PM CST Pt D/c hinting at wanting stronger xanax advised the script is what the md wants him to take RINTENDENT NONSELLING * Tila Gaitan RN - 08/18/2016 3:12 PM CST MD at bedside discussing POC w/ pt and pt family. RINTENDENT NONSELLING * Tila Gaitan RN - 08/18/2016 3:01 PM CST MD at bedside now RINTENDENT NONSELLING * Tila Gaitan RN - 08/18/2016 2:47 PM CST Pt to nurses desk, stating they need to leave by 1500, will notify MD. RINTENDENT NONSELLING * Tila Gaitan RN - 08/18/2016 1:33 PM CST Pt ambulated to restroom in guillory w/ steady gait. Pt returned and medicated per Donnie RAMESH. Patient/family has been informed about benefits and any potential clinically significant side effects or other concerns regarding the administration of the drug they have just been given. Pt refused IVF NS to be restarted, 400 mls infused. Pt states I just need to be scanned . MD venegas RINTENDENT NONSELLING * Nadege Hooker RN - 08/18/2016 12:55 PM CST Pt refusing Ativan at this time, requesting alprazolam. aware. RINTENDENT NONSELLING * Tila Gaitan RN - 08/18/2016 12:34 PM CST Provider at bedside. RINTENDENT NONSELLING * Tila Gaitan RN - 08/18/2016 12:30 PM CST IV est and blood samples sent to lab. Pt requesting POC glucose per cap finger stick, aware. Pt sitting up on stretcher, appears in NAD RINTENDENT NONSELLING * Priscila Montoya RN - 08/18/2016 11:15 AM CST Emergency Department Adult Male Abdominal Pain Protocol [facility] ORDERS ARE ENTERED ???PER PROTOCOL?? Nursing Orders: o Insert peripheral IV (excessive vomiting or diarrhea) Laboratory Orders: o CBC with diff ([id number]) o CMP (LAB17) o Urinalysis with Reflex Culture ([id number]) o Obtain lipase (LAB99) if upper abdominal pain o Draw and send extra tubes to lab (ED hold) ([id number]) Diagnostic Test Orders: o If RUQ pain, consult attending physician for Gallbladder ultrasound o Consider EKG if age >= 50 and having upper abdominal pain Includes indication for test Medication Orders: o Sodium chloride 0.9% (normal saline) flush 3mL every 8 hours o Sodium chloride 0.9% (normal saline) flush 3mL PRN for saline lock or medication administration Additional Instructions: o Keep NPO until otherwise ordered by attending physician. Initiating Department(s): Adult Emergency Department Reviewed: 01/15, 01/16, 01/17, 01/18, 01/19, 01/20, 01/21, 01/23, 09/26, 08/26; 12/2014, 01/2016 Revised: 01/22, 01/23, 09/26, 08/26; 12/2014, 01/2016 Revised by: Allie Baker RN, MSN, RUDDY Nurse License Registration Examiner Approved by: Medical Executive Committee, Nursing, Pharmacy & Therapeutics Date: 01/2016 RINTENDENT NONSELLING * Robby Fan MD - 08/18/2016 10:23 AM CST HISTORY OF PRESENT ILLNESS Carlos Mcgee, a 46 y.o. male presents to the ED with a Chief Complaint of Abdominal Pain Subjective HPI Comments: 11:33 AM: Carlos Mcgee is a 46 y.o. male with a history of DM, depression, PTSD, abdominal issues with possible diverticulitis and abnormal CT scan, and GERD, who presents to the Emergency Department with complaints of abdominal pain onset one week ago. Although initially the patient mentions indurations of the week with further questioning he has had abdominal pain of long-standing. It is not clear that he has any length of time without discomfort. He is currently complainingof pain that is fairly generalized although more pronounced mid-upper abdomen. He has a lot of belching and passes a lot of rectal gas but he's had no nausea and vomiting. His symptoms may have some relationship to activity but no clear relationship intake. His weight today is 115 kilograms and a note in 2014 he weighed 106 kg. He has tried answering lucid medicine Carafate with no relief. Indicates he has been taking a lot of NSAIDs in the past month for headache. He's previously had an abnormal CT scan here in October of last year revealing thickening of the descending colon. He indicates he's had colonoscopy at [facility] a year or more ago and a previous one at a [facility] in [place] 2 or 3 years ago. He's also had endoscopy and reports no significant findings.I asked about any relationship with a primary provider. He states he had an appointment with Dr. morelos ago but the doctor call in the next day and told him his issues were too complicated . Patient also reports stress. He tries to go into any detail about the origin of her stress. He indicates he takes Xanax 2 mg 3 times a day me and took his last dose around 3 AM today. He states he isnot out of that medicine. He denies any history of attempting to harm himself and denies any suicidal thought or plan. In addition the patient states she's been unable to work lately. He says he has a hamstring tear onhis right thigh. 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 Physician(s): No primary care provider on file. History provided by: The patient Arrived by: Private vehicle Arrived from: Home Abdominal Pain Pain location: mid. Pain radiates to: Does not radiate Pain severity: Mild Duration: 1 week Timing: Constant Progression: Worsening Context: eating Context: not recent illness Associated symptoms: nausea Associated symptoms: no vomiting REVIEW OF SYSTEMS Review of Systems Gastrointestinal: Positive for abdominal pain (middle) and nausea. Negative for vomiting. H/o GERD and diverticulitis Endocrine: H/o DM unmedicated Psychiatric/Behavioral: The patient is nervous/anxious. PAST MEDICAL [...] HOME MEDICATIONS Discharge Medication List as of 08/18/2016 3:22 PM START taking these medications Details hyoscyamine 0.125 [address], Sub[address] 1 Tablet (0.125 mg) under tongue every 4 hours as needed for Spasm., Disp-15 Tablet, R-0 CONTINUE these medications which have CHANGED Details ALPRAZolam (XANAX) 0.5 mg tablet Take 2 Tablet (1 mg) by mouth 3 times daily., Disp-20 Tablet, R-None CONTINUE these medications which have NOT CHANGED Details sucralfate (CARAFATE) 1 gram tablet Take 1 Gram by mouth 4 times daily before meals and at bedtime. promethazine (PHENERGAN) 25 mg tablet Take 1 [...] Shortness of Breath. STOP taking these medications metroNIDAZOLE (FLAGYL) 500 mg tablet Comments: Reason for Stopping: Objective PHYSICAL EXAM INITIAL VS BP: (!) 142/71 (08/18/16 1050), Heart Rate: 74 bpm (08/18/16 1050), Resp: 18 (08/18/16 1050), Temp:97.8 ??F (36.6 ??C) (08/18/16 1050), Temp src: Oral (08/18/16 1050), SpO2: 99 % (08/18/16 1050), Height: 6' 2 (188 cm) (08/18/16 1050), Weight: 115.7 kg (255 lb) (08/18/16 1050), BMI (Calculated): 32.81 (08/18/16 1050) No LMP for male patient. Physical Exam Constitutional: He is oriented to person, place, and time. He appears well- developed and well-nourished. No distress. Alert, stocky, overweight male. Does not show obvious distress HENT: Head: Normocephalic and atraumatic. Mouth/Throat: Oropharynx is clear and moist. Eyes: Conjunctivae are normal. No clinical jaundice Neck: Normal range of motion. No thyromegaly present. Cardiovascular: Normal rate, regular rhythm and normal heart sounds. Pulmonary/Chest: Effort normal and breath sounds normal. No respiratory distress. Abdominal: Soft. Bowel sounds are decreased. There is no guarding. Overweight. Bowel sounds are present without rashes. There is no guard palpation. No mass or organomegaly appreciated. Musculoskeletal: He exhibits no edema. Lymphadenopathy: He has no cervical adenopathy. Neurological: He is alert and oriented to person, place, and time. Skin: Skin is warm and dry. Psychiatric: Patient speaks in a soft voice. His affect is not flat although he tends to be a bit reserved. Nonetheless he is talkative and responds readily. Nursing note and vitals reviewed. DIAGNOSTICS LAB: Labs this ED Encounter CBC WITH DIFFERENTIAL - Abnormal Result Value RBC 6.26 (*) HEMOGLOBIN 12.7 (*) MCV 67.9 (*) MCH 20.3 (*) MCHC 29.9 (*) RDW 19.4 (*) MPV 9.0 (*) WBC 6.7 HEMATOCRIT 42.5 RDW-STDEV 42.5 PLATELETS 236 NEUTROPHILS 66 LYMPHOCYTES 26 MONOCYTES 5 EOSINOPHILS 2 BASOPHILS 1 NEUTROPHIL ABSOLUTE 4.43 LYMPHOCYTE ABSOLUTE 1.75 MONOCYTE ABSOLUTE 0.35 EOSINOPHIL ABSOLUTE 0.12 BASOPHILS ABSOLUTE 0.04 IMMATURE GRANULOCYTES 0 IMMATURE GRANULOCYTES ABSOLUTE 0.02 COMPREHENSIVE METABOLIC PANEL - Abnormal CHLORIDE 97 (*) BILIRUBIN TOTAL 1.4 (*) ALT 46 (*) SODIUM 136 POTASSIUM 3.6 CO2 24 CALCIUM 9.7 BUN 8 CREATININE 1.07 GLUCOSE 94 TOTAL PROTEIN 8.3 ALBUMIN 4.5 ALKALINE PHOSPHATASE 72 AST 40 GFR >60 GFR, >60 ANION GAP 15 URINALYSIS WITH REFLEX CULTURE - Abnormal LEUKOCYTE ESTERASE UA Trace (*) COLOR UA Yellow CLARITY UA Clear SPECIFIC GRAVITY UA 1.005 PH UA 6.0 NITRITE UA Negative PROTEIN UA Negative GLUCOSE UA Negative KETONES UA Negative UROBILINOGEN UA Normal BILIRUBIN UA Negative BLOOD UA Negative WBC UA 0-2 RBC UA 0-2 BACTERIA UA Negative LIPASE - Normal LIPASE 43 POC GLUCOSE - Normal POC GLUCOSE 90 RADIOLOGY: CT ABDOMEN PELVIS WO CONTRAST Radiologist Impression IMPRESSION: Severe abnormal thickening of the sigmoid colon with luminal narrowing. The findings are worrisome for possible colon malignancy. GI consultation is recommended. The differential diagnosis would also include diverticulitis but there is only minimal pericolonic inflammatory changes around this area of severe abnormal thickening of the sigmoid colon. Bilateral nonobstructive renal calculi [id number] mGy-cm DICTATION LOCATION: Location 1 - [facility] EKG: PROCEDURES Procedures MEDICAL DECISION MAKING AND PLAN OF CARE MDM Summary Statement: The patient's presents with the complaint of abdominal pain and also has that he has an anxiety disorder. His abdominal pain is been of long-standing. His exam today is unrevealing. His laboratory reveals a subtle liver enzyme elevation but this is been the case in the past. He has had a slight reduction in his hemoglobin over the past couple of years with the current level of 12.7 and early in [address] scans in this department as shown thickening of his colon. He has been seenin follow-up by Dr. Andrew of the GI service. I talked to Dr. Sanchez today who reviewed her records and states that Dr. Greene had released the patient due to lack of compliance. We discussed the fact that he has had negative endoscopies and colonoscopies in the past 2-3 years nonetheless follow-up is advised. The patient advised that it would be best to have one primary provider . Obtain his information and seek consultation as necessary. The case monitor interviewed the patient in his attempting to arrange follow-up with her provider near his [place] in [place]. The patient was given instruction to call Dr. Sanchez's group for GI consultation. In the meantime I provided a limited amount of Xanax and advised patient to continue with an acid reducing medicines such as Zantac or Prilosec. .Henry Fan MD I have reviewed previous: notes I have reviewed current: labs and imaging I have reviewed nursing notes related to past medical history, social history, and review of systems and agree, unless otherwise noted. ADDENDUM: 08/19/16 @ 11:00 Received a phone call from this patient all at work this day. He indicates that he has Carafate neurovascularly should be taking it. The patient indicated yesterday he had been taking Carafate along with his acid reducing medicines and not experiencing any benefit. He was in my understanding that he had finished his medication but today he tells me he was not taking it appropriately and that he has it on hand. I advised that he likely would not cause harm but also may well be of no benefit. I stressed to the patient again was important is for him to establish with a primary care provider for an overview of all of his issues, that person would obtain his prior records, and would help guide him to whatever management was appropriate. Henry Fan MD ED Course 12:39 PM: Patient tearful at discussion. CRC and intake agree to consult patient. 2:41 PM: Tammy [facility] staff development coordinator has spoken to patient. 2:46 PM: Discussed with Intake Services tour sales representative, Yuridia, who will see and evaluate the mental health of the pt in the ED. 2:51 PM: Intake reports patient will not be admitted, but is willing to see someone closer to home for his stress. 2:53 PM: Updated pt on their lab and CT results. Patient will be discharged home with an Rx for Xanax and Hyoscyamine. Recommended follow up with [facility] and GI. Iliana RTER with worsening sx. Pt understands and agrees with the plan. All questions and concerns addressed. The patient is stable for discharge. ED provider and ED nurse verbally discussed patient plan of care at this time. 3:15 PM: D/w MARISELA Barrientos. Agrees to follow up with patient Medications Administered During the ED Stay from 08/18/2016 1023 to 08/19/2016 1020 Date/Time Order Dose Route Action 08/18/2016 1300 sodium chloride 0.9% infusion IV Started by Another Clinician 08/18/2016 1200 LORazepam (ATIVAN) 2 mg/mL injection 1 mg 1 mg IV Refused 08/18/2016 1321 ALPRAZolam (XANAX) tablet 2 mg 2 mg Oral Given Discharge Medication List as of 08/18/2016 3:22 PM START taking these medications Details hyoscyamine 0.[address], Sub[address] 1 Tablet (0.125 mg) under tongue every 4 hours as needed for Spasm., Disp-15 Tablet, R-0 CONTINUE these medications which have CHANGED Details ALPRAZolam (XANAX) 0.5 mg tablet Take 2 Tablet (1 mg) by mouth 3 times daily., Disp-20 Tablet, R-None CONTINUE these medications which have NOT CHANGED Details sucralfate (CARAFATE) 1 gram tablet Take 1 Gram by mouth 4 times daily before meals and at bedtime. promethazine (PHENERGAN) 25 mg tablet Take 1 [...] Shortness of Breath. STOP taking these medications metroNIDAZOLE (FLAGYL) 500 mg tablet Comments: Reason for Stopping: LAST VS BP: (!) 142/71 (08/18/16 1050), Heart Rate: 74 bpm (08/18/16 1050), Resp: 18 (08/18/16 1050), Temp:97.8 ??F (36.6 ??C) (08/18/16 1050), Temp src: Oral (08/18/16 1050), SpO2: 99 % (08/18/16 1050) CLINICAL IMPRESSION Final diagnoses: [R10.84] Generalized abdominal pain (Primary) [F41.1] Generalized anxiety disorder DISPOSITION, EDUCATION AND MEDICATION RECONCILIATION Medications reconciled. See after visit summary for patient education on discharged patients. Follow up: [facility] [address] [place], [address] Tammy will call you with your appointment information. If you have any questions, please call her at [phone]. Henry Sanchez MD [address] [facility] [facility] [address] DISCHARGED HOME IN STABLE CONDITION. ATTESTATION STATEMENTS This note has been prepared by Tara Verde acting as a scribe for Dr. Robby Fan on 08/18/2016 at 3:25 PM. The scribe's documentation has been prepared under my direction and personally reviewed by me, MD Mita, in its entirety on 08/19/16 at 10:20 AM. I confirm that the note above accurately reflects all work, treatment, procedures, and medical decision making performed by me . RINTENDENT NONSELLING documented in this encounter Miscellaneous Notes * Care Plan - Tammy Jeff - 08/18/2016 3:31 PM CST Patient was scheduled with [facility] in [place], [place] for Oct 23 at 2:30 pm with Pedro. This coordinator was contacted by [facility] to report pt had cancelled his appointment. Attempted to contact patient to discuss why he cancelled his appointment, pt did not answer or return this coordinator's message. For future referrals, pt will be provided contact information for local health centers in his area but this coordinator will not directly schedule any new appointments. GLEN Velasquez Community Account Executive Trainee [phone] RINTENDENT NONSELLING * Care Plan - Tammy Jeff - 08/18/2016 2:48 PM CST Referred to patient to establish PCP care. Met with patient to discuss needs and options, in September 2015 patient was scheduled at [facility] but he cancelled his new patient appointment because it was too far out. Explained to patient that once he keeps his initial appointment the wait times for appointments will change drastically, pt verbalized understanding. Pt stated he is open to trying [facility] again, they have a location in [place]. Pt verbalized understanding of care plan and had no other needs concerning follow upat this time. This coordinator will establish initial appointment and update the patient and this chart with the appointment information. GLEN Velasquez Community Account Executive Trainee [phone] RINTENDENT NONSELLING documented in this encounter Plan of Treatment Not on file documented as of this encounter Procedures Procedure Name Priority Date/Time Associated Diagnosis Comments CT ABDOMEN PELVIS WO CONTRAST Stat 08/18/2016 1:52 PM SUPERINTENDENT NONSELLING POC GLUCOSE Stat 08/18/2016 1:02 PM SUPERINTENDENT NONSELLING URINALYSIS WITH REFLEX CULTURE Stat 08/18/2016 1:01 PM SUPERINTENDENT NONSELLING CBC WITH DIFFERENTIAL Stat 08/18/2016 12:28 PM SUPERINTENDENT NONSELLING LIPASE Stat 08/18/2016 12:28 PM SUPERINTENDENT NONSELLING COMPREHENSIVE METABOLIC PANEL Stat 08/18/2016 12:28 PM SUPERINTENDENT NONSELLING documented in this encounter Results * CT ABDOMEN PELVIS WO CONTRAST (08/18/2016 1:52 PM SUPERINTENDENT NONSELLING) Anatomical Region Laterality Modality Abdomen Computed Tomogra phy 08/18/2016 1:54 PM SUPERINTENDENT NONSELLING Impressions 08/18/2016 2:48 PM SUPERINTENDENT NONSELLING IMPRESSION: Severe abnormal thickening of the sigmoid colon with luminal narrowing. The findings are worrisome for possible colon malignancy. GI consultation is recommended. The differential diagnosis would also include diverticulitis but there is only minimal pericolonic inflammatory changes around this area of severe abnormal thickening of the sigmoid colon. Bilateral nonobstructive renal calculi [id number] mGy-cm DICTATION LOCATION: Location 1 - [facility] 08/18/2016 2:[address] ABDOMEN PELVIS WO CONTRAST DATE: ??08/18/2016 1:52 PM HISTORY: Pain in the middle of abdomen. ? COMPARISON: CT abdomen and pelvis 03/04/2015 TECHNIQUE: ??CT of the abdomen and pelvis was performed without oral or intravenous contrast. FINDINGS: CT of the abdomen and pelvis was performed without IV and without oral contrast. The lack of contrast lowers the sensitivity of the exam. The liver, spleen, pancreas, and adrenal glands appear grossly unremarkable for a nonenhanced study. The gallbladder is surgically absent. Small bilateral nonobstructive renal calculi are again demonstrated. There is no evidence of hydronephrosis. There is no evidence of pathologically enlarged para-aortic lymph nodes. There is extensive severe abnormal thickening of the sigmoid colon. The wall measures up to 2 cm in thickness and there is severe luminal narrowing of the sigmoid colon. This is worrisome for possible colon malignancy. Further evaluation is recommended. The differential diagnosis would also include diverticulitis but there is only minimal pericolonic inflammatory change around this area of severe abnormal thickening of the sigmoid colon. GI consultation is recommended. Procedure Note Zara Aquino MD - 08/18/2016 CT ABDOMEN PELVIS WO CONTRAST DATE: 08/18/2016 1:52 PM HISTORY: Pain in the middle of abdomen. COMPARISON: CT abdomen and pelvis 03/04/2015 TECHNIQUE: CT of the abdomen and pelvis was performed without oral or intravenous contrast. FINDINGS: CT of the abdomen and pelvis was performed without IV and without oral contrast. The lack of contrast lowers the sensitivity of the exam. The liver, spleen, pancreas, and adrenal glands appear grossly unremarkable for a nonenhanced study. The gallbladder is surgically absent. Small bilateral nonobstructive renal calculi are again demonstrated. There is no evidence of hydronephrosis. There is no evidence of pathologically enlarged para-aortic lymph nodes. There is extensive severe abnormal thickening of the sigmoid colon. The wall measures up to 2 cm in thickness and there is severe luminal narrowing of the sigmoid colon. This is worrisome for possible colon malignancy. Further evaluation is recommended. The differential diagnosis would also include diverticulitis but there is only minimal pericolonic inflammatory change around this area of severe abnormal thickening of the sigmoid colon. GI consultation is recommended. IMPRESSION IMPRESSION: Severe abnormal thickening of the sigmoid colon with luminal narrowing. The findings are worrisome for possible colon malignancy. GI consultation is recommended. The differential diagnosis would also include diverticulitis but there is only minimal pericolonic inflammatory changes around this area of severe abnormal thickening of the sigmoid colon. Bilateral nonobstructive renal calculi [id number] mGy-cm DICTATION LOCATION: Location 1 - [facility] Robby Fan MD CT ORDERABLES * POC GLUCOSE (08/18/2016 1:02 PM SUPERINTENDENT NONSELLING) GLUCOSE POC 90 79 - 99 mg/dL 08/18/2016 1:05 PM SUPERINTENDENT NONSELLING [facility] Whole blood specimen (specimen) 08/18/2016 1:02 PM SUPERINTENDENT NONSELLING 08/18/2016 1:05 PM SUPERINTENDENT NONSELLING Robby Fan MD POINT OF CARE TESTIN [employer] LABORATORY SERVICES - [facility] CLIA# [id number] [place] [id number] * (ABNORMAL) URINALYSIS WITH REFLEX CULTURE (08/18/2016 1:01 PM SUPERINTENDENT NONSELLING) COLOR UA Yellow Pale to Dark Yellow 08/18/2016 1:38 PM [facility] [place] LAB[place] SERVICES - . [facility] CLARITY UA Clear Clear 08/18/2016 1:38 PM SUPERINTENDENT NONSELLING [place] [facility] - . [facility] SPECIFIC GRAVITY UA 1.005 08/18/2016 1:38 PM [facility] [place] [facility] - . [facility] PH UA 6.0 5.0 - 8.0 08/18/2016 1:38 PM [facility] [place] [facility] [place] - . [facility] LEUKOCYTE ESTERASE UA Trace(A) Negative 08/18/2016 1:38 PM [facility] [place] [facility] - [facility] Comment: For patients with 'trace' results, consider ordering a culture and sensitivity if clinically indicated. NITRITE UA Negative Negative 08/18/2016 1:38 PM [facility] [place] [facility] - [facility] PROTEIN UA Negative Negative 08/18/2016 1:38 PM [facility] [place] [facility] - . [facility] GLUCOSE UA Negative Negative 08/18/2016 1:38 PM [facility] [place] [facility] [place] - . [facility] KETONES UA Negative Negative 08/18/2016 1:38 PM [facility] [place] [facility] - . [facility] UROBILINOGEN UA Normal <2.0 mg/dL 6 1:38 PM SUPERINTENDENT NONSELLING [place] [facility] - . [facility] BILIRUBIN UA Negative Negative 08/18/2016 1:38 PM [facility] [place] [facility] - . [facility] BLOOD UA Negative Negative 08/18/2016 1:38 PM SUPERINTENDENT NONSELLING [place] [facility] - . [facility] WBC UA 0-2 0 - 2 /hpf 08/18/2016 1:38 PM SUPERINTENDENT NONSELLING [place] [facility] - . [facility] RBC UA 0-2 0 - 2 /hpf 08/18/2016 1:38 PM SUPERINTENDENT NONSELLING [place] [facility] - . [facility] BACTERIA UA Negative Negative /hpf 08/18/2016 1:38 PM [facility] [place] [facility] - . [facility] Urine URINE SPECIMEN OBTAINED BY CLEAN CATCH PROCEDURE / Unknown Collection / Unknown 08/18/2016 1:01 PM SUPERINTENDENT NONSELLING 08/18/2016 1:21 PM SUPERINTENDENT NONSELLING Protocol [facility] Karen RUSSELL URINE ORDERA BLES [facility] [employer] [facility] CLIA# [id number] [address] [place] [id number] * LIPASE (08/18/2016 12:28 PM SUPERINTENDENT NONSELLING) LIPASE 43 13 - 60 U/L 08/18/2016 1:07 PM SUPERINTENDENT NONSELLING [place] LAB[place] [facility] Blood Venipuncture / Unknown 08/18/2016 12:28 PM SUPERINTENDENT NONSELLING 08/18/2016 12:31 PM SUPERINTENDENT NONSELLING Robby Fan MD CHEMISTRY ORDERABLES Performing Organization Address City/[facility]/ZIP Co de Phone Number [facility] [employer] [facility] CLIA# [id number] [place] [address] * (ABNORMAL) COMPREHENSIVE METABOLIC PANEL (08/18/2016 12:28 PM SUPERINTENDENT NONSELLING) SODIUM 136 136 - 145 mmol/L 08/18/2016 1:07 PM SUPERINTENDENT NONSELLING [place] [facility] [place] [facility] POTASSIUM 3.6 3.5 - 5.0 mmol/L 08/18/2016 1:07 PM SUPERINTENDENT NONSELLING [place] [facility] - [facility] CHLORIDE 97(L) 98 - 107 mmol/L 08/18/2016 1:07 PM SUPERINTENDENT NONSELLING [place] [facility] - [facility] CO2 24 22 - 29 mmol/L 08/18/2016 1:07 PM SUPERINTENDENT NONSELLING [place] [facility] - [facility] CALCIUM 9.7 8.6 - 10.2 mg/dL 08/18/2016 1:07 PM SUPERINTENDENT NONSELLING [place] [facility] - . [facility] BUN 8 6 - 20 mg/dL 08/18/2016 1:07 PM [facility] [place] [facility] - [facility] CREATININE 1.07 0.67 - 1.17 mg/dL 08/18/2016 1:07 PM SUPERINTENDENT NONSELLING [place] [facility] [facility] GLUCOSE 94 74 - 99 mg/dL 08/18/2016 1:07 PM [facility] [place] LAB[place] [facility] - . [facility] TOTAL PROTEIN 8.3 6.7 - 8.6 g/dL 08/18/2016 1:07 PM [facility] [place] [facility] - . [facility] ALBUMIN 4.5 3.5 - 5.2 g/dL 08/18/2016 1:07 PM [facility] [employer] LABORATORY [facility] - . [facility] BILIRUBIN TOTAL 1.4(H) 0.3 - 1.2 mg/dL 08/18/2016 1:07 PM [facility] [place] [facility] - . [facility] ALKALINE PHOSPHATASE 72 40 - 129 U/L 08/18/2016 1:07 PM [facility] [employer] [facility] - . [facility] AST 40 <41 U/L 08/18/2016 1:07 PM [facility] [facility] - . [facility] ALT 46(H) <42 U/L 08/18/2016 1:07 PM [facility] [employer] [facility] GFR >60 >=60 mL/min/1.7 3 sq meter 08/18/2016 1:07 PM [facility] [facility] Comment: eGFR has not been validated for [...] GFR, >60 >=60 mL/min/1.7 3 sq meter 08/18/2016 1:07 PM [facility] [facility] ANION GAP 15 8 - 16 mmol/L 08/18/2016 1:07 PM [facility] [facility] Blood Venipuncture / Unknown 08/18/2016 12:28 PM SUPERINTENDENT NONSELLING 08/18/2016 12:31 PM SUPERINTENDENT NONSELLING Protocol [facility] Emergency MD CHEMISTRY OR DERABLES [facility] [employer] [facility]# [id number] [address] [facility] [address] [address] * (ABNORMAL) CBC WITH DIFFERENTIAL (08/18/2016 12:28 PM SUPERINTENDENT NONSELLING) [facility] WBC 6.7 4.0 - 9.8 K/uL 08/18/2016 12:39 PM SUPERINTENDENT NONSELLING [place] [facility] RBC 6.26(H) 4.50 - 5.40 M/uL 08/18/2016 12:39 PM SUPERINTENDENT NONSELLING [employer] LABORATORY SERVICES - [facility] HEMOGLOBIN 12.7(L) 13.6 - 16.5 g/dL 08/18/2016 12:39 PM SUPERINTENDENT NONSELLING [employer] [facility]AT[facility] HEMATOCRIT 42.5 40.0 - 48.0 % 08/18/2016 12:39 PM SUPERINTENDENT NONSELLING [place] [facility] MCV 67.9(L) 82.0 - 99.0 fL 08/18/2016 12:39 PM SUPERINTENDENT NONSELLING [place] [facility] MCH 20.3(L) 27.2 - 32.6 pg 08/18/2016 12:39 PM SUPERINTENDENT NONSELLING [place] [facility] MCHC 29.9(L) 31.5 - 35.5 g/dL 08/18/2016 12:39 PM SUPERINTENDENT NONSELLING [place] [facility] RDW 19.4(H) 11.5 - 14.5 % 08/18/2016 12:39 PM SUPERINTENDENT NONSELLING [place] [facility] RDW-STDEV 42.5 37.1 - 48.7 fL 08/18/2016 12:39 PM SUPERINTENDENT NONSELLING [place] [facility] PLATELETS 236 140 - 350 K/uL 08/18/2016 12:39 PM SUPERINTENDENT NONSELLING [place] [facility] MPV 9.0(L) 9.3 - 12.4 fL 08/18/2016 12:39 PM SUPERINTENDENT NONSELLING [place] [facility] NEUTROPHILS 66 % 08/18/2016 12:39 PM SUPERINTENDENT NONSELLING [employer] LAB[facility]AT[facility] LYMPHOCYTES 26 % 08/18/2016 12:39 PM SUPERINTENDENT NONSELLING [place] [facility] MONOCYTES 5 % 08/18/2016 12:39 PM SUPERINTENDENT NONSELLING [place] [facility] EOSINOPHILS 2 % 08/18/2016 12:39 PM SUPERINTENDENT NONSELLING [place] [facility] BASOPHILS 1 % 08/18/2016 12:39 PM SUPERINTENDENT NONSELLING [facility] LABORATORY [facility] NEUTROPHIL ABSOLUTE 4.43 1.90 - 7.00 K/uL 08/18/2016 12:39 PM SUPERINTENDENT NONSELLING [facility] LABORATORY [facility] LYMPHOCYTE ABSOLUTE 1.75 0.70 - 4.50 K/uL 08/18/2016 12:39 PM SUPERINTENDENT NONSELLING [facility] LABORATORY [facility] MONOCYTE ABSOLUTE 0.35 0.10 - 1.30 K/uL 08/18/2016 12:39 PM SUPERINTENDENT NONSELLING [facility] LABORATORY [facility] EOSINOPHIL ABSOLUTE 0.12 0.00 - 0.70 K/uL 08/18/2016 12:39 PM SUPERINTENDENT NONSELLING [facility] LABORATORY [facility] BASOPHILS ABSOLUTE 0.04 0.00 - 0.20 K/uL 08/18/2016 12:39 PM SUPERINTENDENT NONSELLING [facility] LABORATORY [facility] IMMATURE GRANULOCYTES 0 % 08/18/2016 12:39 PM SUPERINTENDENT NONSELLING [facility] LABORATORY [facility] IMMATURE GRANULOCYTES ABSOLUTE 0.02 0.00 - 0.03 K/uL 08/18/2016 12:39 PM SUPERINTENDENT NONSELLING [facility] LABORATORY [facility] Blood Venipuncture / Unknown 08/18/2016 12:28 PM SUPERINTENDENT NONSELLING 08/18/2016 12:31 PM SUPERINTENDENT NONSELLING Protocol [facility] Emergency MD HEMATOLOGY O RDERABLES [facility]# [id number] [facility] [place] [address] documented in this encounter Visit Diagnoses Diagnosis Generalized abdominal pain- Primary Abdominal pain, generalized Generalized anxiety disorder documented in this encounter Administered Medications Inactive Administered Medications - up to 3 most recent administrations Medication Order MAR Action Action Date Dose Rate Site ALPRAZolam (XANAX) tablet 2 mg 2 mg, Oral, ONE TIME ONLY, 1 dose, On Wed08/18/16 at 1300, Routine Given 08/18/2016 1:21 PM SUPERINTENDENT NONSELLING 2 mg sodium chloride 0.9% infusion IV, at 500 mL/hr, CONTINUOUS, Starting on Wed08/18/16 at 1200, Until Wed08/18/16 at 1359, Routine Started by Another Clinician 08/18/2016 1:00 PM SUPERINTENDENT NONSELLING 500 mL/hr documented in this encounter Active and Recently Administered Medications Times are shown in SUPERINTENDENT NONSELLING. Scheduled Medication Order 08/16/2016 08/17/2016 08/18/2016 ALPRAZolam (XANAX) tablet 2 mg (COMPLETED) 2 mg, Oral, ONE TIME ONLY, 1 dose, On Wed08/18/16 at 1300, Routine 1321 (Given - Provid er: Hannah Cardoso RN) Continuous Medication Order 08/16/2016 08/17/2016 08/18/2016 sodium chloride 0.9% infusion IV, at 500 mL/hr, CONTINUOUS, Starting on Wed08/18/16 at 1200, Until Wed08/18/16 at 1359, Routine 1300 (Started by Ano ther Clinician - Provider: Tila Gaitan RN) documented in this encounter
--- OUTSIDE RECORDS SUMMARY | 2024-09-10 04:21 | XMS_ITS | Encounter Summary ---
Author Organization [facility] Address [address] [place] [address] Care Team Providers Care [employer] Name Role Phone Unavailable Primary Care Provider Unavailabl e Reason for Visit * Reason Comments Sinus Pain to ED d/t clear nasa l drainage, cough, RUSSO, facial pain. Pt appears anxious, states here 1 week ago d/t CP, seen chiropractor 2 x times this week d/t pain * Auth/Cert Specialty Diagnoses / Procedures Referred By Redd t Referred To Contact Emergency Medicine [facility] Emergency Dept [address] [place] [address] Referral ID Status Reason Start Date Expiration Date Visits Re quested Visits Authorized [id number] 1 Encounter Details Date Type Department Care Team (Late st Contact Info) Description 05/26/2015 12:31 AM CDT - 05/26/2015 1:44 AM CDT Emergency [facility] Emergency Department [address] [place] [address] Arie Justice MD [address] [place] [address] [place] [address] Acute sinusitis (Primary Dx); Otitis media, right Discharge Disposition: Home or Self Care Social [...] Sign Reading Time Taken Comments Blood Pressure 143/85 05/26/2015 1:13 AM CDT Pulse 89 05/26/2015 1:13 AM CDT Temperature 37.3 ??C (99.2 ??F) 05/25/2015 11:53 PM C DT Respiratory Rate 16 05/26/2015 1:13 AM CDT Oxygen Saturation 97% 05/26/2015 1:13 AM CDT Inhaled Oxygen Concentration - - Weight 106.6 kg (235 lb) 05/25/2015 11:53 PM CDT Height 188 cm (6' 2 ) 05/25/2015 11:53 PM CDT Body Mass Index 30.17 05/25/2015 11:53 PM CDT documented in this encounter Discharge Instructions * Discharge Instructions* Arie Justice MD - 05/26/2015 1:06 AM CDT Return to this facility if your symptoms worsen Call the referral physician on next available weekday for an appointment this week Take all medicines as directed. * Attachments The following attachments cannot be sent through Care Everywhere. * OTITIS MEDIA (NIUEAN) * SINUSITIS (NIUEAN) documented in this encounter Medications at Time of Discharge Medication Sig Dispensed Refills Start Date End Date albuterol 90 mcg/Actuation HFA inhaler Take 2 Puffs by inhalation every 6 hours as needed for Shortness of Breath. amoxicillin-clavulanat e (AUGMENTIN) 875-125 mg tablet Take 1 Tablet by mouth every 12 hours for 14 days. 28 Tablet 0 05/26/2015 06/09/2015 ibuprofen (MOTRIN) 400 mg tablet Take 2 Tablet (800 mg) by mouth every 8 hours as needed for Pain, Mild. 30 Tablet None 05/26/2015 07/02/2015 hyoscyamine 0.125 mg Tablet, SublingualIndications: irritable bowel syndrome Place 0.125 mg under tongue every 6 hours as needed for Spasm . 12/03/2015 sucralfate (CARAFATE) 1 gram tablet Take 1 Tab (1 Gram) by mouth 4 times daily before meals and at bedtime. 12 Tab None 03/04/2015 07/02/2015 ALPRAZolam (XANAX) 2 mg tablet Take 1 Tab (2 mg) by mouth 3 times daily as needed for Anxiety. 30 Tab 0 01/08/2015 07/02/2015 HYDROcodone-acetaminop hen (NORCO) 5-325 mg tablet Take 1 Tab by mouth every 4 hours as needed for Pain, Moderate. Max Daily Amount: 6 Tabs 30 Tab None 01/08/2015 07/02/2015 ondansetron (ZOFRAN ODT) 4 mg Tablet, Rapid Dissolve Place 1 Tab (4 mg) under tongue every 6 hours as needed for Nausea. 20 Tab none 11/08/2014 07/02/2015 cyclobenzaprine (FLEXERIL) 5 mg Tablet Take 1 Tab by mouth 3 times daily as needed for Pain or Spasm. 30 Tab 0 08/28/2014 07/02/2015 fluticasone (FLONASE) 50 mcg/spray Both Nostril SpSnIndications:allerg ic rhinitis prevention Administer 2 Sprays in each nostril daily . 12/03/2015 promethazine (PHENERGAN) 25 mg Oral tablet Take 25 mg by mouth every 6 hours as needed for Nausea/Emesis . 12/03/2015 documented as of this encounter ED Notes * Minal Viramontes RN - 05/26/2015 1:44 AM CDT MD at bedside; Patient discharged to home via ambulation with self. Discharge information, including an overview of treatment received, after-visit instructions, and recommendation for follow-up careprovided to patient. Questions answered, understanding of discharge instruction verbalized. Printed copy given to patient * Minal Viramontes RN - 05/26/2015 1:34 AM CDT Xrlilly at bedside * Minal Viramontes RN - 05/26/2015 1:17 AM CDT MD at bedside * Minal Viramontes RN - 05/26/2015 1:16 AM CDT Attempted to d/c pt, pt requesting CXR, notified and ok with this * Minal Viramontes RN - 05/26/2015 12:58 AM CDT Pt arrives with several c/o; for 1 week pt has had sore throat, headache, sinus pressure, burning eyes and heartburn in epigastric area; was here a week and half ago for CP workup was negative; pt provided with wet wash cloth for comfort and wash test checker for his phone; MD at bedside * Arie Justice MD - 05/26/2015 12:42 AM CDT HISTORY OF PRESENT ILLNESS Carlos Mcgee, a 45 y.o. male presents to the ED with a Chief Complaint of Sinus Pain Subjective HPI Comments: 12:54 AM: Carlos Mcgee is a 45 y.o. male who presents to the Emergency Departmentwith complaint of sinus pain with drainage, eye redness, cough and a RUSSO. He has taken Mucinex and sudafed that increased his drainage. He recently has been watching his nephews and believes they may have gotten him sick. He has a PMH significant for chest pain, GERD, DM, PTSD and chronic pain. No fevers. No chills. No neck stiffness Physician(s): Jeremy Anderson M.D. History provided by: The patient Arrived by: Private vehicle Arrived from: Home REVIEW OF SYSTEMS Review of Systems Constitutional: Negative for fever, chills and fatigue. HENT: Positive for congestion, ear pain, postnasal drip, rhinorrhea, sinus pressure and sore throat. Negative for drooling, ear discharge, trouble swallowing and voice change. Eyes: Positive for redness. Respiratory: Negative for cough, chest tightness and shortness of breath. Cardiovascular: Positive for chest pain. Negative for palpitations and leg swelling. Gastrointestinal: Negative for nausea, vomiting, abdominal pain and diarrhea. Genitourinary: Negative for dysuria, urgency, frequency, flank pain and difficulty urinating. Musculoskeletal: Negative for back pain. Skin: Negative for pallor and rash. Neurological: Positive for headaches. Negative for dizziness, speech difficulty and light-headedness. Psychiatric/Behavioral: Negative for confusion. The patient is not nervous/anxious. PAST MEDICAL [...] history on file. He reports that he does not drink [...] Percocet; and Sulfa (sulfonamide antibiotics) HOME MEDICATIONS Discharge Medication List as of 05/26/2015 1:40 AM START taking these medications Details amoxicillin-clavulanate (AUGMENTIN) 875-125 mg tablet Take 1 Tablet by mouth every 12 hours for 14 days., Disp-28 Tablet, R-0 CONTINUE these medications which have CHANGED Details ibuprofen (MOTRIN) 400 mg tablet Take 2 Tablet (800 mg) by mouth every 8 hours as needed for Pain, Mild., Disp-30 Tablet, R-None CONTINUE these medications which have NOT CHANGED Details hyoscyamine 0.125 mg Tablet, Sublingual Place 0.125 mg under tongue every 6 hours as needed for Spasm. omeprazole (PRILOSEC) 40 mg Capsule, Delayed Release(E.C.) Take 1 Cap (40 mg) by mouth daily., Disp-30 Cap, R-None sucralfate (CARAFATE) 1 gram tablet Take 1 Tab (1 Gram) by mouth 4 times daily before meals and at bedtime., Disp-12 Tab, R-None ALPRAZolam (XANAX) 2 mg tablet Take 1 Tab (2 mg) by mouth 3 times daily as needed for Anxiety., Disp-30 Tab, R-0 HYDROcodone-acetaminophen (NORCO) 5-325 mg tablet Take 1 Tab by mouth every 4 hours as needed for Pain, Moderate. Max Daily Amount: 6 Tabs, Disp-30 Tab, R-None ondansetron (ZOFRAN ODT) 4 mg Tablet, Rapid Dissolve Place 1 Tab (4 mg) under tongue every 6 hours as needed for Nausea., Disp-20 Tab, R-none cyclobenzaprine (FLEXERIL) 5 mg Tablet Take 1 Tab by mouth 3 times daily as needed for Pain or Spasm., Disp-30 Tab, R-0 albuterol 90 mcg/Actuation HFA inhaler Take 2 Puffs by inhalation every 6 hours as needed for Shortness of Breath. fluticasone (FLONASE) 50 mcg/spray Both Nostril SpSn Administer 2 Sprays in each nostril daily. promethazine (PHENERGAN) 25 mg Oral tablet Take 25 mg by mouth every 6 hours as needed. STOP taking these medications naproxen (NAPROSYN) 500 mg tablet Comments: Reason for Stopping: ciprofloxacin HCl (CIPRO) 500 mg tablet Comments: Reason for Stopping: metroNIDAZOLE (FLAGYL) 500 mg tablet Comments: Reason for Stopping: Objective PHYSICAL EXAM INITIAL VS BP: 146/95 mmHg (05/25/152352), Heart Rate: 92 bpm (05/25/152352), Resp: 16 (05/25/152352), Temp: 99.2 ??F (37.3 ??C) (05/25/152352), Temp src: Oral (05/25/152352), SpO2: 95 % (05/25/152352), Height: 6' 2 (188 cm) (05/25/152352), Weight: 106.595 kg (05/25/152352), BMI (Calculated): 30.24 (05/25/152352) No LMP for male patient. Physical Exam Constitutional: He is oriented to person, place, and time. He appears well- developed and well-nourished. No distress. HENT: Head: Normocephalic and atraumatic. Mouth/Throat: Oropharynx is clear and moist. No oropharyngeal exudate. TM's red. Left and right frontal sinus tenderness. Eyes: Conjunctivae and EOM are normal. Pupils [...] normal. Abdominal: Soft. Bowel sounds are normal. He [...] note and vitals reviewed. DIAGNOSTICS LAB: RADIOLOGY: XR CHEST PA OR AP ED Interpretation No acute process identified. Similar in appearance to most prior exam EKG: PROCEDURES Procedures MEDICAL DECISION MAKING AND PLAN OF CARE Patient clinically with acute sinusitis - will treat with augmentin, ibuprofen for pain. REEVALUATION CASE DISCUSSED Discharge Medication List as of 05/26/2015 1:40 AM START taking these medications Details amoxicillin-clavulanate (AUGMENTIN) 875-125 mg tablet Take 1 Tablet by mouth every 12 hours for 14 days., Disp-28 Tablet, R-0 CONTINUE these medications which have CHANGED Details ibuprofen (MOTRIN) 400 mg tablet Take 2 Tablet (800 mg) by mouth every 8 hours as needed for Pain, Mild., Disp-30 Tablet, R-None CONTINUE these medications which have NOT CHANGED Details hyoscyamine 0.125 mg Tablet, Sublingual Place 0.125 mg under tongue every 6 hours as needed for Spasm. omeprazole (PRILOSEC) 40 mg Capsule, Delayed Release(E.C.) Take 1 Cap (40 mg) by mouth daily., Disp-30 Cap, R-None sucralfate (CARAFATE) 1 gram tablet Take 1 Tab (1 Gram) by mouth 4 times daily before meals and at bedtime., Disp-12 Tab, R-None ALPRAZolam (XANAX) 2 mg tablet Take 1 Tab (2 mg) by mouth 3 times daily as needed for Anxiety., Disp-30 Tab, R-0 HYDROcodone-acetaminophen (NORCO) 5-325 mg tablet Take 1 Tab by mouth every 4 hours as needed for Pain, Moderate. Max Daily Amount: 6 Tabs, Disp-30 Tab, R-None ondansetron (ZOFRAN ODT) 4 mg Tablet, Rapid Dissolve Place 1 Tab (4 mg) under tongue every 6 hours as needed for Nausea., Disp-20 Tab, R-none cyclobenzaprine (FLEXERIL) 5 mg Tablet Take 1 Tab by mouth 3 times daily as needed for Pain or Spasm., Disp-30 Tab, R-0 albuterol 90 mcg/Actuation HFA inhaler Take 2 Puffs by inhalation every 6 hours as needed for Shortness of Breath. fluticasone (FLONASE) 50 mcg/spray Both Nostril SpSn Administer 2 Sprays in each nostril daily. promethazine (PHENERGAN) 25 mg Oral tablet Take 25 mg by mouth every 6 hours as needed. STOP taking these medications naproxen (NAPROSYN) 500 mg tablet Comments: Reason for Stopping: ciprofloxacin HCl (CIPRO) 500 mg tablet Comments: Reason for Stopping: metroNIDAZOLE (FLAGYL) 500 mg tablet Comments: Reason for Stopping: LAST VS BP: 143/85 mmHg (05/26/15112), Heart Rate: 92 bpm (05/25/152352), Resp: 16 (05/26/15112), Temp: 99.2 ??F (37.3 ??C) (05/25/152352), Temp src: Oral (05/25/152352), SpO2: 97 % (05/26/15112) CLINICAL IMPRESSION Final diagnoses: [461.9] Acute sinusitis (Primary) [382.9] Otitis media, right CODING MDM Coding Reviewed: previous chart, nursing note and vitals Interpretation: SP02 and x-ray I have reviewed nursing notes and agree unless otherwise mentioned. DISPOSITION, EDUCATION AND MEDICATION RECONCILIATION Medications reconciled. See after visit summary for patient education on discharged patients. ATTESTATION STATEMENTS This note has been prepared by J Luis Angel acting as a scribe for Dr. Arie Justice on 05/26/2015 at 1:05 PM. The scribe's documentation has been prepared under my direction and personally reviewed by me, Arie Justice M.D. , in its entirety on 05/26/2015 at 3:39 AM. I confirm that the note above accurately reflects all work, treatment, procedures, and medical decision making performed by me. documented in this encounter Plan of Treatment Not on file documented as of this encounter Procedures Procedure Name Priority Date/Time Associated Diagnosis Comments XR CHEST PA OR AP 1 VW Stat 05/26/2015 1:38 AM CDT documented in this encounter Results * XR CHEST PA OR AP (05/26/2015 1:38 AM CDT) Anatomical Region Laterality Modality Chest Computed Radiogr aphy 05/26/2015 1:30 AM CDT Narrative 05/26/2015 7:51 AM CDT CHEST X-RAY DATE: 05/26/2015 at 0138 hours HISTORY: Shortness of breath. FINDINGS: Portable view of the chest is being compared to the chest x-ray of December. There is no gross change in the cardiac silhouette or appearance of the pulmonary vasculature, with mild hilar prominence. There is no vascular redistribution or convincing evidence of pulmonary edema. There is no infiltrate, volume loss or pleural effusion. Dictated from [address] Procedure Note London Robbins MD - 05/26/2015 CHEST X-RAY DATE: 05/26/2015 at 0138 hours HISTORY: Shortness of breath. FINDINGS: Portable view of the chest is being compared to the chest x-ray of December. There is no gross change in the cardiac silhouette or appearance of the pulmonary vasculature, with mild hilar prominence. There is no vascular redistribution or convincing evidence of pulmonary edema. There is no infiltrate, volume loss or pleural effusion. Dictated from [address] Arie Justice MD DIAGNOSTIC IMAGING O RDERABLES documented in this encounter Visit Diagnoses Diagnosis Acute sinusitis- Primary Acute sinusitis, unspecified Otitis media, right Unspecified otitis media documented in this encounter
--- OUTSIDE RECORDS SUMMARY | 2024-09-10 04:21 | XMS_ITS | Encounter Summary ---
Author Organization [facility] Address [address] [place] [address] Care Team Providers Care Outside Salesman Name Role Phone Unavailable Primary Care Provider Unavailabl e Encounter Details Date Type Department Care Team (Late st Contact Info) Description 02/07/2016 Abstract [facility] [place] [id number] [address] Provider, Abstract NO ADDRESS ON FILE Social History Tobacco Use Types Packs/Day Years [...]
--- OUTSIDE RECORDS SUMMARY | 2024-09-10 04:21 | XMS_ITS | Encounter Summary ---
Author Organization [employer] Address [address] [place] [address] Care Team Providers Care Community Development Aide Name Role Phone Unavailable Primary Care Provider Unavailabl e Reason for Visit * Reason Comments Abdominal Pain presents with white colored stools, pain in mid abd, seen in this ER Thurs am for pain * Auth/Cert - Closed Specialty Diagnoses / Procedures Referred By Redd mobley Referred To Contact Emergency Medicine [facility] Emergency Dept [address] [place] [address] Referral ID Status Reason Start Date Expiration Date Visits Re quested Visits Authorized [id number] Closed 1 1 Encounter Details Date Type Department Care Team (Late st Contact Info) Description 11/10/2014 6:13 AM LOGISTICS LEAD - 11/10/2014 8:41 AM [facility] Emergency [facility] Emergency Department [address] [place] [address] Jose Soto MD [address] [place] [address] Diverticulitis (Primary Dx) Discharge Disposition: Left Against Medical [...] Sign Reading Time Taken Comments Blood Pressure 137/74 11/10/2014 8:00 AM LOGISTICS LEAD Pulse - - Temperature 36.7 ??C (98 ??F) 11/10/2014 6:12 AM LOGISTICS LEAD Respiratory Rate 16 11/10/2014 7:51 AM LOGISTICS LEAD Oxygen Saturation 98% 11/10/2014 8:00 AM LOGISTICS LEAD Inhaled Oxygen Concentration - - Weight 120.2 kg (265 lb) 11/10/2014 6:12 AM LOGISTICS LEAD Height 188 cm (6' 2 ) 11/10/2014 6:12 AM LOGISTICS LEAD Body Mass Index 34.02 11/10/2014 6:12 AM LOGISTICS LEAD documented in this encounter Discharge Instructions * Attachments The following attachments cannot be sent through Care Everywhere. * DIVERTICULITIS (KYRGYZ) documented in this encounter Medications at Time of Discharge Medication Sig Dispensed Refills Start Date End Date albuterol 90 mcg/Actuation HFA inhaler Take 2 Puffs by inhalation every 6 hours as needed for Shortness of Breath. ciprofloxacin HCl (CIPRO) 750 mg tablet Take 1 Tab (750 mg) by mouth 2 times daily for 7 days. 14 Tab 0 11/10/2014 11/17/2014 metroNIDAZOLE (FLAGYL) 500 mg tablet Take 1 Tab (500 mg) by mouth 3 times daily for 7 days. 21 Tab 0 11/10/2014 11/17/2014 ondansetron (ZOFRAN ODT) 4 mg Tablet, Rapid [...] Sprays in each nostril daily . 12/03/2015 alprazolam (XANAX) 2 mg Oral tablet Take 2 mg by mouth 3 times daily. 12/29/2009 01/08/2015 promethazine (PHENERGAN) 25 mg Oral tablet Take 25 mg by mouth every 6 hours as needed for Nausea/Emesis . 12/03/2015 documented as of this encounter ED Notes * Angi Costa RN - 11/10/2014 8:40 AM CST Patient discharged to home via ambulatory with steady gait with self. Patient states feeling better. Discharge information and education provided to patient. Questions answered, understanding of discharge instruction verbalized. Printed copy given. STICS LEAD * Angi Costa RN - 11/10/2014 8:31 AM CST Pt states he doesn't want to be admitted for IV antibiotics, pt wants to go home and take PO meds. Pt signed AMA form to state that MD wanted pt to be admitted but pt is refusing. STICS LEAD * Kathi Squires RN - 11/10/2014 6:45 AM CST Pt c/o abd pain with diarrhea and nausea, reports white colored stools, pt was here on wed for the same complaints, iv access est, obtained blood work sent to lab, pt given peds per order, pt in NAD,call light with in reach, ED nurse and ED provider verbally discussed patient plan of care at this time. STICS LEAD * Jose Soto MD - 11/10/2014 6:17 AM CST HISTORY OF PRESENT ILLNESS Carlos Mcgee, a 44 y.o. male presents to the ED with a Chief Complaint of Abdominal Pain Subjective HPI Comments: 6:17 AM: Carlos Mcgee is a 44 y.o. male with a history of Gastritis and Diverticulitis, who presents to the Emergency Department with complaints of abdominal pain to his mid abdomenthat began 2 days ago. Associated sx include fever, chills, nausea. He was seen here 2 days ago forsimilar sx and had a negative CT abd pelvis and all labs were WNL. According to his ED notes from 2days ago, patient wanted to be admitted, but Dr. Justice had a long discussion that admission was not warranted at that time. He was discharged home with Flagyl and Cipro. His sx improved for one day,and then returned yesterday morning and persisted today. Associated sx today include white colored stool, diarrhea, and decreased appetite. He also c/o epigastric pain. He is on 40 mg Prilosec daily and he had a normal stress 2-3 months ago. History provided by: The patient and medical records Arrived by: Private vehicle Arrived from: Home REVIEW OF SYSTEMS Review of Systems Constitutional: Positive for fever, chills and appetite change (decreased appetite). Negative for activity change and fatigue. HENT: Negative for nosebleeds. Eyes: Negative for pain and itching. Respiratory: Negative for shortness of breath and wheezing. Cardiovascular: Negative for chest pain, palpitations and leg swelling. Gastrointestinal: Positive for nausea, abdominal pain (mid abdomen and epigastric region) and diarrhea (stool white colored ). Negative for vomiting. Genitourinary: Negative for dysuria and hematuria. Musculoskeletal: Negative for myalgias, back pain and neck pain. Neurological: Negative for seizures and headaches. Psychiatric/Behavioral: Negative for confusion and agitation. PAST MEDICAL HISTORY REVIEWED MEDICAL: Patient has a past medical history of Depression (anxiety); Anxiety; Panic attacks; Diverticulitis;Diverticulitis; and Diabetes. SURGICAL: Patient has past surgical history that includes chg removal gallbladder. FAMILY: Patient's family history is not on file. SOCIAL: reports that he has never smoked. He does not have any smokeless tobacco history on file. He reports that he uses illicit drugs (Prescription Drugs). He reports that he does not drink alcohol. PROBLEM LIST: Patient has Cervical stenosis of spinal canal; Costochondral chest pain; Paresthesias with subjective weakness; PTSD (post-traumatic stress disorder); GERD (gastroesophageal reflux disease); Diabetesmellitus type 2, controlled, without complications; and Blurry vision, bilateral on his problem list. ALLERGIES Bactrim; Contrast; Levaquin; Lidocaine; Morphine; Percocet; and Sulfa (sulfonamide antibiotics) HOME MEDICATIONS Discharge Medication List as of 11/10/2014 8:34 AM CONTINUE these medications which have CHANGED Details ciprofloxacin HCl (CIPRO) 750 mg tablet Take 1 Tab (750 mg) by mouth 2 times daily for 7 days., Disp-14 Tab, R-0 metroNIDAZOLE (FLAGYL) 500 mg tablet Take 1 Tab (500 mg) by mouth 3 times daily for 7 days., Disp-21 Tab, R-0 CONTINUE these medications which have NOT [...] as needed for Shortness of Breath. omeprazole (PRILOSEC) 40 mg Capsule, Delayed Release(E.C.) Take 40 mg by mouth daily. fluticasone (FLONASE) 50 mcg/spray Both Nostril SpSn Administer 2 Sprays in each nostril daily. alprazolam (XANAX) 2 mg Oral tablet Take 2 mg by mouth 3 times daily. promethazine (PHENERGAN) 25 mg Oral tablet Take 25 mg by mouth every 6 hours as needed. Objective PHYSICAL EXAM INITIAL VS BP: 156/94 mmHg (11/10/14611), Heart Rate (Monitored): 109 bpm (11/10/14611), Resp: 20 (11/10/14611), Temp: 98 ??F (36.7 ??C) (11/10/14611), Temp src: Oral (11/10/14611), SpO2: 96 % (11/10/14611), Height: 6' 2 (188 cm) (11/10/14611), Weight: 120.203 kg (11/10/14611), BMI (Calculated): 34.1 (11/10/14611) No LMP for male patient. Physical Exam Constitutional: He is oriented to person, place, and time. He appears well- developed and well-nourished. HENT: Head: Normocephalic and atraumatic. Eyes: Conjunctivae are normal. Pupils are equal, [...] note and vitals reviewed. DIAGNOSTICS LAB: RADIOLOGY: CT ABDOMEN PELVIS WO CONTRAST IMPRESSION: 1. [Abnormal thickening of the distal descending/proximal sigmoid colon], compatible with acute diverticulitis. When patient's symptoms have resolved, colonoscopy is recommended to exclude a mucosal lesion. 2. Stranding of the mesenteric fat with an increased number of mesenteric lymph nodes. This is a nonspecific finding which could be due to an acute or chronic infectious/inflammatory process (mesenteric panniculitis). 3. Mild focal prominence of the midpancreatic body. When able, MRI is recommended to exclude underlying lesion. 4. Diffuse fatty infiltration of the liver. 5. Bilateral nonobstructing renal calculi. Dictated from Location 1 - [facility] EKG: NSR. Rate 90. No ST elevations. Nl axis. PROCEDURES Procedures MEDICAL DECISION MAKING AND PLAN OF CARE 44 yo male with a history of gastritis and diverticulitis, presents with mid abdominal pain that began 3 days ago with associated fever, chills, nausea, vomiting, diarrhea, and decreased appetite. Hewas here with similar sx 2 days ago and his blood work and CT abdomen/pelvis were normal. He was discharged home with Cipro and Flagyl and symptoms persisted. Today, CT abdomen/pelvis shows evidence of acute diverticulitis. Patient afebrile at this time. Patient will be admitted to the medical floor for further evaluation and management under the care of the [facility]. 8:32 AM: Patient refusing IV antibiotics. Offered to start him on Zosyn, Clindamycin, and other IV antibiotics, but he refuses because he is afraid of the potential side affects. Therefore, he is refusing admission and would like to be discharged home to take PO antibiotics instead. Patient signed AMA form.I updated Selena Vila NP for the [facility]. Patient stable for discharge home. REEVALUATION 7:41 AM: Updated patient on his blood work and CT scan results, diagnosis, and plan for admission to the medical floor for diverticulitis. Patient agrees with the plan. The opportunity for questions was givenand questions were answered to the patient's satisfaction. All questions and concerns have been addressed. 8:20 AM: Patient now refusing admission. He reports a h/o PTSD and he is refusing IV abx. Will change disposition plan to be discharged. Patient signed AMA form. Plan to follow up with the physician referral line. All questions and concerns addressed. CASE DISCUSSED 7:50 AM: Spoke with Selena Vila (FACILITY EXAMINER for the [facility]), who agrees with the management and plan for admission. Attending: Dr. Lockwood. 8:31 AM: Updated Selena on the new plan for the patient to be discharged, as the patient is refusing admission. Medications Administered During the ED Stay from 11/10/2014 0604 to 11/12/2014 1454 Date/Time Order Dose Route Action 11/10/2014 0833 sodium chloride 0.9% bolus solution 1,000 mL 0 mL IV Stopped 11/10/2014 0639 sodium chloride 0.9% bolus solution 1,000 mL 1,000 mL IV New Bag 11/10/2014 0640 ondansetron (ZOFRAN) 4 mg/2 mL injection 4 mg 4 mg IV Given Discharge Medication List as of 11/10/2014 8:34 AM CONTINUE these medications which have CHANGED Details ciprofloxacin HCl (CIPRO) 750 mg tablet Take 1 Tab (750 mg) by mouth 2 times daily for 7 days., Disp-14 Tab, R-0 metroNIDAZOLE (FLAGYL) 500 mg tablet Take 1 Tab (500 mg) by mouth 3 times daily for 7 days., Disp-21 Tab, R-0 CONTINUE these medications which have NOT [...] as needed for Shortness of Breath. omeprazole (PRILOSEC) 40 mg Capsule, Delayed Release(E.C.) Take 40 mg by mouth daily. fluticasone (FLONASE) 50 mcg/spray Both Nostril SpSn Administer 2 Sprays in each nostril daily. alprazolam (XANAX) 2 mg Oral tablet Take 2 mg by mouth 3 times daily. promethazine (PHENERGAN) 25 mg Oral tablet Take 25 mg by mouth every 6 hours as needed. LAST VS BP: 137/74 mmHg (11/10/14 08), Heart Rate (Monitored): 85 bpm (11/10/14799), Resp: 16 (751), Temp: 98 ??F (36.7 ??C) (11/10/14611), Temp src: Oral (11/10/14611), SpO2: 98 % (11/10/14799) CLINICAL IMPRESSION Final diagnoses: [562.11] Diverticulitis (Primary) CODING MDM Coding Reviewed: previous chart, nursing note and vitals Reviewed previous: labs Interpretation: SP02, CT scan, labs, ECG and cardiac monitoring I have reviewed nursing notes and agree unless otherwise mentioned. Consults: hospitalist DISPOSITION, EDUCATION AND MEDICATION RECONCILIATION Medications reconciled. See after visit summary for patient education on discharged patients. Follow up: [facility], Physician Referral Line [phone] Schedule an appointment as soon as possible for a visit in 2 days DISCHARGED TO HOME IN STABLE CONDITION. This note has been prepared by Margarita Perdue acting as a scribe for Dr. Jose Soto on 11/10/2014 at 9:40 AM. The scribe's documentation has been prepared under my direction and personally reviewed by me in its entirety on 11/12/2014 at 2:54 PM. I confirm that the note above accurately reflects all work, treatment, procedures, and medical decision making performed by me. STICS LEAD * Sheila Ruiz RN - 11/10/2014 6:13 AM CST Pt brought multiple bags with him, states wish ER had kept him on , reminded pt that Dr Schmidtplained to pt there was no justification for admission at that time. Pt states now it's the w/e and I will have to wait around to see environmental health technician . After disch Thurs pt returned to room x1 and called battery charger x 1 concerned sx had been overlooked STICS LEAD documented in this encounter Plan of Treatment Not on file documented as of this encounter Procedures Procedure Name Priority Date/Time Associated Diagnosis Comments C. DIFFICILE DETECTION Stat 5 7:[address] ABDOMEN PELVIS WO CONTRAST Stat 11/10/2014 7:09 AM LOGISTICS LEAD CBC WITH DIFFERENTIAL Stat 11/10/2014 6:40 AM LOGISTICS LEAD LIPASE Stat 11/10/2014 6:40 AM LOGISTICS LEAD COMPREHENSIVE METABOLIC PANEL Stat 11/10/2014 6:40 AM LOGISTICS LEAD EKG 12-LEAD Stat 11/10/2014 6:37 AM LOGISTICS LEAD documented in this encounter Results * CLOSTRIDIUM DIFFICILE TOXIN (11/10/2014 7:24 AM LOGISTICS LEAD) C DIFF TOXIN PCR RESULT Negative Negative [facility] C DIFF TOXIN PCR SOURCE Stool [facility] Stool 11/10/2014 7:24 AM LOGISTICS LEAD 11/10/2014 7:30 AM LOGISTICS LEAD Comment:Stool Jose Soto MD MICROBIOLOGY - GENER AL ORDERABLES [facility] [id number] [address] [facility] [address] [place], [place] [address] * CT ABDOMEN PELVIS WO CONTRAST (11/10/2014 7:09 AM LOGISTICS LEAD) Anatomical Region Laterality Modality Abdomen Computed Tomogra phy 11/10/2014 6:49 AM LOGISTICS LEAD Impressions 11/11/2014 7:51 AM LOGISTICS LEAD IMPRESSION: 1. Abnormal thickening of the distal descending/proximal sigmoid colon, compatible with acute diverticulitis. When patient's symptoms have resolved, colonoscopy is recommended to exclude a mucosal lesion. 2. Stranding of the mesenteric fat with an increased number of mesenteric lymph nodes. This is a nonspecific finding which could be due to an acute or chronic infectious/inflammatory process (mesenteric panniculitis). 3. Mild focal prominence of the mid pancreatic body. When able, MRI is recommended to exclude underlying lesion. 4. Diffuse fatty infiltration of the liver. 5. Bilateral nonobstructing renal calculi. Findings reviewed with Dr. Soto 11/10/2014 at the time of dictation. Dictated from [address] Narrative 11/11/2014 7:[address] OF THE ABDOMEN AND PELVIS WITHOUT CONTRAST DATE: 11/10/2014 INDICATION: 44-year-old man with midabdominal pain. TECHNIQUE: Helical scanning of the abdomen and pelvis was performed without oral or intravenous contrast material. COMPARISONS: CT 11/08/2014. FINDINGS: ??Images through the lung bases are unremarkable. The liver is diffusely decreased in attenuation as compared to the spleen, compatible with fatty infiltration. There has been prior cholecystectomy. The spleen is within normal limits in size. There is a suggestion of some mild prominence of the mid pancreatic body, similar to the prior exam. No inflammatory changes are seen around the pancreas. The adrenal glands are unremarkable. There are two nonobstructing renal calculi. There is a nonobstructing left renal calculus measuring 3 mm (image 144). There is a mildly enlarged peripancreatic lymph node measuring 11 mm on image 117. There is no retroperitoneal lymphadenopathy. There is stranding of the fat within the small bowel mesentery with an increased number of mesenteric lymph nodes. This appearance is nonspecific. There are small fat-containing inguinal hernias bilaterally. There is no pelvic lymphadenopathy. There is abnormal thickening of the distal descending colon / proximal sigmoid colon with several scattered colonic diverticula. Findings are compatible with acute diverticulitis. When able, colonoscopy is recommended to exclude an underlying mucosal lesion. The appendix is unremarkable. There is no free air or fluid. Procedure Note Ajith Markham MD - 11/11/2014 CT OF THE ABDOMEN AND PELVIS WITHOUT CONTRAST DATE: 11/10/2014 INDICATION: 44-year-old man with midabdominal pain. TECHNIQUE: Helical scanning of the abdomen and pelvis was performed without oral or intravenous contrast material. COMPARISONS: CT 11/08/2014. FINDINGS: Images through the lung bases are unremarkable. The liver is diffusely decreased in attenuation as compared to the spleen, compatible with fatty infiltration. There has been prior cholecystectomy. The spleen is within normal limits in size. There is a suggestion of some mild prominence of the mid pancreatic body, similar to the prior exam. No inflammatory changes are seen around the pancreas. The adrenal glands are unremarkable. There are two nonobstructing renal calculi. There is a nonobstructing left renal calculus measuring 3 mm (image 144). There is a mildly enlarged peripancreatic lymph node measuring 11 mm on image 117. There is no retroperitoneal lymphadenopathy. There is stranding of the fat within the small bowel mesentery with an increased number of mesenteric lymph nodes. This appearance is nonspecific. There are small fat-containing inguinal hernias bilaterally. There is no pelvic lymphadenopathy. There is abnormal thickening of the distal descending colon / proximal sigmoid colon with several scattered colonic diverticula. Findings are compatible with acute diverticulitis. When able, colonoscopy is recommended to exclude an underlying mucosal lesion. The appendix is unremarkable. There is no free air or fluid. IMPRESSION IMPRESSION: 1. Abnormal thickening of the distal descending/proximal sigmoid colon, compatible with acute diverticulitis. When patient's symptoms have resolved, colonoscopy is recommended to exclude a mucosal lesion. 2. Stranding of the mesenteric fat with an increased number of mesenteric lymph nodes. This is a nonspecific finding which could be due to an acute or chronic infectious/inflammatory process (mesenteric panniculitis). 3. Mild focal prominence of the mid pancreatic body. When able, MRI is recommended to exclude underlying lesion. 4. Diffuse fatty infiltration of the liver. 5. Bilateral nonobstructing renal calculi. Findings reviewed with Dr. Soto 11/10/2014 at the time of dictation. Dictated from Location 1 - [facility] Jose Soto MD CT ORDERABLES * LIPASE (11/10/2014 6:40 AM LOGISTICS LEAD) LIPASE 35 13 - 60 U/L [facility] Blood 11/10/2014 6:40 AM LOGISTICS LEAD 11/10/2014 6:46 AM LOGISTICS LEAD Jose Soto MD CHEMISTRY ORDERABLES [facility]# [id number] [address] [place] [address] * (ABNORMAL) COMPREHENSIVE METABOLIC PANEL (11/10/2014 6:40 AM LOGISTICS LEAD) SODIUM 139 136 - 145 mmol/L [facility] - [facility] POTASSIUM 3.5 3.5 - 5.0 mmol/L [facility] - . [facility] CHLORIDE 100 98 - 107 mmol/L [facility] - [facility] CO2 26 22 - 29 mmol/L [facility] - . [facility] CALCIUM 8.9 8.6 - 10.2 mg/dL [facility] BUN 6 6 - 20 mg/dL [facility] CREATININE 1.08 0.67 - 1.17 mg/dL [facility] GLUCOSE 87 79 - 99 mg/dL [facility]. [facility] TOTAL PROTEIN 8.1 6.7 - 8.6 g/dL [facility] - . [facility] ALBUMIN 4.5 3.5 - 5.2 g/dL [facility] - . [facility] BILIRUBIN TOTAL 1.2 0.3 - 1.2 mg/dL [facility] ALKALINE PHOSPHATASE 78 40 - 129 U/L [facility] AST 46(H) <=40 U/L [facility] Comment:Hemolysis present. R esult may be falsely elevated. ALT 54(H) <=41 U/L [facility] GFR, >60 >=60 mL/min/1.7 sq meter [facility] GFR >60 >=60 mL/min/1.7 sq meter [facility] Comment: eGFR has not been validated for use in the elderly (>70 years of age), women, patients with serious co-morbid conditions, or persons with extremes of body size or muscle mass and should also be interpreted with caution in patients with acute kidney failure, dialysis dependant patients, patients reporting exceptional dietary intake (e.g.vegetarian diet, high protein diets, creatine supplementation), and patients with severe liver disease. eGFR is not valid for patients <18 years of age. ?? Based on National Kidney Disease Education Program. Blood 11/10/2014 6:40 AM LOGISTICS LEAD 11/10/2014 6:46 AM LOGISTICS LEAD Jose Soto MD CHEMISTRY ORDERABLES [facility] CLIA# [id number] [address] [facility] [place] [address] * (ABNORMAL) CBC WITH DIFFERENTIAL (11/10/2014 6:40 AM LOGISTICS LEAD) WBC 5.8 4.0 - 9.8 K/uL [facility] RBC 5.89(H) 4.50 - 5.40 M/uL [facility] HEMOGLOBIN 13.3(L) 13.6 - 16.5 g/dL [facility] HEMATOCRIT 42.8 40.0 - 48.0 % [facility] MCV 72.7(L) 82.0 - 99.0 fL [facility] MCH 22.6(L) 27.2 - 32.6 pg [facility] MCHC 31.1(L) 31.5 - 35.5 % [facility] PLATELETS 190 140 - 350 K/uL [facility] MPV 9.2(L) 9.3 - 12.4 fL [facility] RDW 17.1(H) 11.5 - 14.5 % [facility] RDW-STDEV 44.2 37.1 - 48.7 fL [facility] - . [facility] NEUTROPHILS 55 45 - 70 % [facility] - . [facility] LYMPHOCYTES 33 16 - 45 % [facility] - . [facility] MONOCYTES 10 3 - 13 % [facility] - . [facility] EOSINOPHILS 2 0 - 7 % [facility] - . [facility] BASOPHILS 0 0 - 2 % [facility] - . [facility] NEUTROPHIL ABSOLUTE 3.20 1.90 - 7.00 K/uL [facility]. [facility] LYMPHOCYTE ABSOLUTE 1.91 0.70 - 4.50 K/uL [facility]. [facility] MONOCYTE ABSOLUTE 0.57 0.10 - 1.30 K/uL [facility] EOSINOPHIL ABSOLUTE 0.13 0.00 - 0.70 K/uL [facility] BASOPHILS ABSOLUTE 0.02 0.00 - 0.20 K/uL [facility] Blood 11/10/2014 6:40 AM LOGISTICS LEAD 11/10/2014 6:46 AM LOGISTICS LEAD Jose Soto MD [facility]EMATOLOGY [facility]ABLE [facility] [id number] [address] [facility] [place] [address] * EKG 12-LEAD (11/10/2014 6:37 AM LOGISTICS LEAD) 11/10/2014 6:37 AM LOGISTICS LEAD Narrative INTERFACE SYSTEM - 11/10/2014 9:55 AM LOGISTICS LEAD ? Stationary ECG Study ? [facility] ? Test Date: ?11/10/2014 6:37:52 AM ? Pat Name: ? Vincent Corpus ? Department: ?? 16 ?Room: ? 04 04 ? Gender: ? M ?Cnc Manager: ?? henggw ? : ?1970 ? Requested by: Jose Charles ? Order Number: [id number] ?Reading MD: ?? Raza Desean ? Intervals ?[place] ? Rate: ? 92 ? P: ?31 ? [place]: ? 146 ?QRS: ?48 ? QRSD: ? 106 ?T: ?-1 ? QT: ? 350 ? QTc: ?400 ? Interpretive Statements SINUS RHYTHM NONSPECIFIC T-WAVE ABNORMALITY Compared to ECG 11/08/2014 01:14:11 Sinus tachycardia no longer present T-wave abnormality still present Electronically Signed On 11-10-14 09:55:25 LOGISTICS LEAD by Raza Anton Procedure Note Provider, Historical - 11/10/2014 Stationary ECG Study [facility] Test Date: 11/10/2014 6:37:52 AM Pat Name: Carlos Mcgee Department: 16 Room: [facility] Gender: M Cnc Manager: lexis : 1970 Requested by: Jose Soto Order Number: [id number] Reading MD: Raza Anton Intervals [place] Rate: 92 P: 31 [place]: 146 QRS: 48 QRSD: 106 T: -1 QT: 350 QTc: 400 Interpretive Statements SINUS RHYTHM NONSPECIFIC T-WAVE ABNORMALITY Compared to ECG 11/08/2014 01:14:11 Sinus tachycardia no longer present T-wave abnormality still present Electronically Signed On 11-10-14 09:55:25 LOGISTICS LEAD by Raza Anton Jose Soto MD ECG ORDERABLES INTERFACE SYSTEM Refer to clinic/hospital department documented in this encounter Visit Diagnoses Diagnosis Diverticulitis- Primary Diverticulitis of colon (without mention of hemorrhage) documented in this encounter Administered Medications Inactive Administered Medications - up to 3 most recent administrations Medication Order MAR Action Action Date Dose Rate Site ondansetron (ZOFRAN) 4 mg/2 mL injection 4 mg 4 mg, IV, ONE TIME ONLY, 1 dose, On 11/10/14 at 0630, Routine Given 11/10/2014 6:40 AM LOGISTICS LEAD 4 mg sodium chloride 0.9% bolus solution 1,000 mL 1,000 mL, IV, ONE TIME ONLY, 1 dose, On 11/10/14 at 0630, at 1,000 mL/hr, Administer over 60 Minutes, Routine New Bag 11/10/2014 6:39 AM LOGISTICS LEAD 1,000 mL 1000 mL/hr documented in this encounter Active and Recently Administered Medications Times are shown in LOGISTICS LEAD. Scheduled Medication Order 11/08/2014 11/09/2014 11/10/2014 ondansetron (ZOFRAN) 4 mg/2 mL injection 4 mg (COMPLETED) 4 mg, IV, ONE TIME ONLY, 1 dose, On 11/10/14 at 0630, Routine 0640 (Given - Provid er: Kathi Squires RN) sodium chloride 0.9% bolus solution 1,000 mL (COMPLETED) 1,000 mL, IV, ONE TIME ONLY, 1 dose, On 11/10/14 at 0630, at 1,000 mL/hr, Administer over 60 Minutes, Routine 0639 (New Bag - Prov ider: Kathi Squires RN)0739 (Due: Stopped - Provider: Kathi Squires RN)0833 (Stopped - Provider: Angi Costa RN) documented in this encounter
--- OUTSIDE RECORDS SUMMARY | 2024-09-10 04:21 | XMS_ITS | Encounter Summary ---
Author Organization [facility] Address [address] [place] [address] Care Team Providers Care Customer Manager Name Role Phone Unavailable Primary Care Provider Unavailabl e Reason for Referral * Eval and Treat (Routine) - Closed Specialty Diagnoses / Procedures Referred By Redd t Referred To Contact Orthopedic Surgery Diagnoses Neck pain Howard Trinidad MD NO ADDRESS ON FILE Referral ID Status Reason Start Date Expiration Date V isits Requested Visits Authorized [id number] Closed CRS To Schedule (STL) 12/09/2015 12/09/2016 1 1 Encounter Details Date Type Department Care Team (Late st Contact Info) Description 12/09/2015 Orders Only [facility] [place] [address] [place] [address] Howard Trinidad MD NO ADDRESS ON FILE Neck pain (Primary Dx) Social History Tobacco Use [...] of this encounter Plan of Treatment Scheduled Referrals Name Type Priority Associated Diagnoses Order Schedule AMB REFERRAL TO ORTHOPEDIC SURGERY Outpatient Referral Routine Neck pain Ordered: 12/09/2015 documented as of this encounter Visit Diagnoses Diagnosis Neck pain- Primary Cervicalgia documented in this encounter
--- OUTSIDE RECORDS SUMMARY | 2024-09-10 04:21 | XMS_ITS | Encounter Summary ---
Author Organization [employer] Address [address] [place] [address] Care Team Providers Care Managing Broker Name Role Phone Unavailable Primary Care Provider Unavailabl e Reason for Visit * Reason Comments Abdominal Pain Generalized abdomina l pain starting a week ago. Saw a urologist last week due to frequent urination. Was started on a new medicine (myrbetriz) which made his abdomen start hurting. Denies fevers. +nausea. Denies vomiting. Pt scheduled to see GI doctor tomorrow. * Auth/Cert - Closed Specialty Diagnoses / Procedures Referred By Redd mobley Referred To Contact Emergency Medicine [facility] Emergency Dept [address] [place] [address] Referral ID Status Reason Start Date Expiration Date Visits Re quested Visits Authorized [id number] Closed 1 1 Encounter Details Date Type Department Care Team (Late st Contact Info) Description 03/03/2015 10:37 PM CDT - 03/04/2015 1:43 AM CDT Emergency [facility] Emergency Department [address] [place] [address] Edwni Rice MD [address] [place] [address] Carlos Hanson MD [address] [place] [address] Abdominal pain (Primary Dx); Nausea Discharge Disposition: Home or Self Care [...] Sign Reading Time Taken Comments Blood Pressure 144/74 03/04/2015 1:27 AM CDT Pulse 83 03/04/2015 1:27 AM CDT Temperature 36.7 ??C (98.1 ??F) 03/03/2015 10:12 PM C DT Respiratory Rate 18 03/04/2015 1:27 AM CDT Oxygen Saturation 98% 03/04/2015 1:27 AM CDT Inhaled Oxygen Concentration - - Weight 122.5 kg (270 lb) 03/03/2015 10:12 PM CDT Height 188 cm (6' 2 ) 03/03/2015 10:12 PM CDT Body Mass Index 34.67 03/03/2015 10:12 PM CDT documented in this encounter Medications [...] 07/02/2015 fluticasone (FLONASE) 50 mcg/spray Both Nostril SpSnIndications:allergi c rhinitis prevention Administer 2 Sprays in each nostril daily . 12/03/2015 promethazine (PHENERGAN) 25 mg Oral tablet Take 25 mg by mouth every 6 hours as needed for Nausea/Emesis . 12/03/2015 documented as of this encounter ED Notes * Regis Ruth RN - 03/04/2015 1:36 AM CDT Patient discharged to home via ambulation with self. Discharge information, including an overview of treatment received, after-visit instructions, and recommendation for follow-up care provided to patient. Questions answered, understanding of discharge instruction verbalized. Printed copy given to patient * Regis Ruth RN - 03/04/2015 1:25 AM CDT Pt updated on plan of care regarding discharge. No new complaints at this time. Pt remains AOx4. * Regis Ruth RN - 03/04/2015 12:20 AM CDT Pt updated on plan of care regarding awaiting CT results, no new complaints at this time. Pt remains AOx4, respirations spontaneous and non labored. Pt provided apple juice. * Regis Ruth RN - 03/03/2015 11:52 PM CDT Patient/family has been informed about benefits and any potential clinically significant side effects or other concerns regarding the administration of the drug they have just been given. ED nurse and ED provider verbally discussed patient plan of care at this time. Pt updated on plan of care regarding CT scan, no new complaints at this time. Pt remains AOx4, respirations spontaneous and non labored. * Carlos Hanson MD - 03/03/2015 11:19 PM CDT Images from the original note were not included. Emergency Department Attending Physician Note History of Present Illness Primary Care Doctor: No primary provider on file. Documented Triage Chief Complaint: Abdominal Pain Provider was at the bedside at 11:20 PM. Carlos Kelly is a 45 y.o. male who presents with non-radiating abd pain, compared to past gastritis, onset a week ago. He states he first had frequent urination one month ago. She saw a urologisteugeniet sonia, and was started on Myrbetriq, after which he started his current abd pain. He admits to nausea, fatigue, and mild CP, but denies vomiting or fever. He has an appointment with GI tomorrow. No further concerns or complaints at this time. Onset: One week ago Severity: Moderate Duration: Constant Frequency/Progression: Unchanged Quality: Compared to gastritis Radiation: None Modifiers: None Associated symptoms: Nausea, mild CP Patient information was obtained from primarily from the patient History/Exam limitations: None Relevant Medical History Past Medical History: Past Medical History Diagnosis Date ??? Depression anxiety ??? Anxiety ??? Panic attacks ??? Diverticulitis ??? Diverticulitis ??? Diabetes Past Surgical History: Past Surgical History Procedure Laterality Date ??? Chg removal gallbladder ??? Hx cholecystectomy Home Medications: Discharge Medication List as of 03/04/2015 1:11 AM START taking these medications Details ciprofloxacin HCl (CIPRO) 500 mg tablet Take 1 Tab (500 mg) by mouth 2 times daily., Disp-20 Tab, R-None metroNIDAZOLE (FLAGYL) 500 mg tablet Take 1 Tab (500 mg) by mouth 3 times daily., Disp-30 Tab, R-None sucralfate (CARAFATE) 1 gram tablet Take 1 Tab (1 Gram) by mouth 4 times daily before meals and at bedtime., Disp-12 Tab, R-None CONTINUE these medications which have CHANGED Details omeprazole (PRILOSEC) 40 mg Capsule, Delayed Release(E.C.) Take 1 Cap (40 mg) by mouth daily., Disp-30 Cap, R-None CONTINUE these medications which have NOT CHANGED Details ALPRAZolam (XANAX) 2 mg tablet Take 1 Tab (2 mg) by mouth 3 times daily as needed for Anxiety., Disp-30 Tab, R-0 HYDROcodone-acetaminophen (NORCO) 5-325 mg tablet Take 1 Tab by mouth every 4 hours as needed for Pain, Moderate. Max Daily Amount: 6 Tabs, Disp-30 Tab, R-None ibuprofen (MOTRIN) 800 mg tablet Take 800 mg by mouth every 6 hours as needed for Pain, Mild. ondansetron (ZOFRAN ODT) 4 mg Tablet, Rapid [...] by mouth every 6 hours as needed. Allergies: Bactrim; Contrast; Levaquin; Lidocaine; Morphine; Paxil; Percocet; and Sulfa (sulfonamide antibiotics) Social History: reports that he has never smoked. He does not have any smokeless tobacco history on file. He reports that he uses illicit drugs (Prescription Drugs). He reports that he does not drink alcohol. Family History: family history is not on file. Review of Systems ?? A comprehensive review of systems was completed. All other systems negative except as marked. ?? See HPI for additional ROS Constitutional: Fatigue, No Fever, No chills ENT: No rhinorrhea, No sore throat Eyes: No vision change, no photophobia Respiratory: No cough, No dyspnea Cardiac: Chest pain, No palpitations GI: Abdominal pain, nausea, no vomiting, no diarrhea : Urinary frequency, No dysuria, no hematuria Musculoskeletal: No joint pain, no muscle aches Skin: No rash Heme: No spontaneous bleeding, no bruising Neuro: No weakness, no headache, no numbness/tingling, no difficulty walking Psych: No hallucinations, no acute change in mood Physical Exam BP: 144/74 mmHg (03/04/15126), Pulse: 83 (03/04/15126), Resp: 18 (06/22/15 0127), Temp: 98.1 ??F (36.7 ??C) (03/03/152211), Temp src: Oral (03/03/152211) General: Alert, no obvious distress HEENT: Normocephalic, atraumatic, Throat clear, no erythema or swelling, Nose without drainage, mucous membranes moist, Neck: No tenderness Back: No tenderness Chest Wall: No tenderness, injury or deformity Heart: RRR without Murmur Lungs: CTA = Bilat Abdomen: Mild tenderness, worse on L, no rebound. Soft, normal bowel sounds Rectal: Not performed Extremities: No edema, no calf tenderness, distal pulses intact Pulses: 2+ radial = bilat Skin: No rash, no petechiae, no purpura Lymphatic: No lymphadenopathy noted Neuro: No facial droop, good and equal strength and sensation in all extremities. Psychiatric: normal affect and mood. Studies and Interpretation Pulse Oximetry Interpretation: Saturation: 99% Oxygen Delivery: Room Air Interpretation: No hypoxia at this time Rhythm Strip Interpretation (independent interpretation by Thanh Hanson MD): Normal Sinus Rhythm, no arrhythmia Ventricular Rate: 85 Initial Electrocardiogram (independent interpretation by Thanh Hanson MD): Normal sinus rhythm, ventricular rate (bpm) 85 [place]: normal. ??MN and QRS intervals: normal ST segments: No acute ST elevation or depression noted No prior Imaging (all imaging was independently reviewed by me): CT ABDOMEN PELVIS WO CONTRAST Radiologist Impression Exam: CT ABDOMEN PELVIS WO CONTRAST . Mar 04, 2015 12:13:17 AM . History: . Abdominal Pain LLQ . Scans were performed without the intravenous injection of contrast. The liver is free of distinct solid masses or evidence of hepatocellular disease. No abnormalities of bile ducts are seen. The gallbladder is surgically absent. The spleen is unremarkable. No pancreatic masses, cysts or inflammation are identified. No renal masses are seen. No renal cyst are seen. There is a 2 to 3 mm nonobstructing renal stones present bilaterally.. No obstruction is seen. The ureters descend without evidence of obstruction or displacement. The urinary bladder is grossly normal. . No pelvic masses, cysts or abnormal fluid collections are seen. No periaortic or pelvic adenopathy is seen. There is a normal appendix present.. There is again seen to be abnormal thickening of the proximal sigmoid colon. While this may be the result of a diverticular disease there is little if any surrounding inflammatory changes raising concern that this represents a colonic mass.. No other abnormalities of bowel loop and mesentery are identified. IMPRESSION IMPRESSION: 1. Two to 3 mm nonobstructing renal stones present bilaterally. 2. There is again seen to be abnormal thickening of the proximal sigmoid colon. While this may be the result of a diverticular disease there is little if any surrounding inflammatory changes raising concern that this represents a colonic mass. A colonoscopy is recommended if this has not been performed since most recent previous exam of 11/10/2014. Dictated from location 4. DLP = 1682 Lab: (Reviewed by me), Significant for: Results for orders placed or performed during the hospital encounter of 03/03/15 (from the past 24 hour(s)) URINALYSIS WITH REFLEX CULTURE Result Value Ref Range COLOR UA Yellow Pale to Dark Yellow CLARITY UA Clear Clear SPECIFIC GRAVITY UA 1.017 1.003-1.035 PH UA 7.0 5.0-8.0 LEUKOCYTE ESTERASE UA Negative Negative NITRITE UA Negative Negative PROTEIN UA Negative Negative GLUCOSE UA Negative Negative KETONES UA Negative Negative UROBILINOGEN UA Normal <2.0 mg/dL BILIRUBIN UA Negative Negative BLOOD UA Negative Negative CBC WITH DIFFERENTIAL Result Value Ref Range WBC 5.9 4.0-9.8 K/uL RBC 5.77 (H) 3.90-4.90 M/uL HEMOGLOBIN 12.9 (L) 13.6-16.5 g/dL HEMATOCRIT 40.6 40.0-48.0 % MCV 70.4 (L) 82.0-99.0 fL MCH 22.4 (L) 27.2-32.6 pg MCHC 31.8 30.0-36.0 g/dL RDW 16.8 (H) 11.5-14.5 % RDW-STDEV 42.1 37.1-48.7 fL PLATELETS 179 140-350 K/uL MPV 8.8 (L) 9.3-12.4 fL NEUTROPHILS 62 45-70 % LYMPHOCYTES 29 16-45 % MONOCYTES 7 3-13 % EOSINOPHILS 2 <7 % BASOPHILS 0 <3 % NEUTROPHIL ABSOLUTE 3.60 1.90-7.00 K/uL LYMPHOCYTE ABSOLUTE 1.72 0.70-4.50 K/uL MONOCYTE ABSOLUTE 0.43 0.10-1.30 K/uL EOSINOPHIL ABSOLUTE 0.09 <0.70 K/uL BASOPHILS ABSOLUTE 0.02 <0.30 K/uL COMPREHENSIVE METABOLIC PANEL Result Value Ref Range SODIUM 141 136-145 mmol/L POTASSIUM 3.6 3.5-5.0 mmol/L CHLORIDE 103 98-107 mmol/L CO2 29 22-29 mmol/L CALCIUM 9.3 8.6-10.2 mg/dL BUN 8 6-20 mg/dL CREATININE 0.93 0.67-1.17 mg/dL GLUCOSE 86 79-99 mg/dL TOTAL PROTEIN 7.9 6.7-8.6 g/dL ALBUMIN 4.6 3.5-5.2 g/dL BILIRUBIN TOTAL 0.8 0.3-1.2 mg/dL ALKALINE PHOSPHATASE 76 40-129 U/L AST 42 (H) <41 U/L ALT 56 (H) <42 U/L GFR >60 >=60 mL/min/1.73 sq meter GFR, >60 >=60 mL/min/1.73 sq meter ANION GAP 9 8-16 mmol/L C-REACTIVE PROTEIN Result Value Ref Range CRP 5.1 <6.0 mg/L POC CREATININE Result Value Ref Range POC CREATININE 1.00 0.70-1.20 mg/dL GFR >60 >=60 mL/min/1.73 sq meter GFR, >60 >=60 mL/min/1.73 sq meter Medical Decision Making and ED Course Initial Evaluation: 45 y.o. male who presents with abd pain, nausea, dysuria With reviewing triage note/vitals as well as initial encounter with patient and exam, I had considered at least at one time in the differential: diverticulitis, UTI, kidney stone, colitis. I reviewed prior records and noted previous hx of diverticulitis in the past. Initial blood work and imaging included: Urine, basic labs. Medications given initially were: IVFs. Updates 11:46 PM: Pt has been seen multiple times for diverticulitis and has had multiple CT in the last year. Given well appearing, mild fever and nl exam, likely mild case of diverticulitis. Went over risks/benefits of CT vs. no CT at this time. Pt would be more comfortable with a CT. CT ordered without contrast given IV allergy. 1:00 AM: Rechecked pt. Well appearing. No distress. Lab work unremarkable. Due to previous hx of diverticulitis, will put on abx to cover bases from earlier infection. Will have close f/u with GI doctor. Medications Given Medications Administered During the ED Stay from 03/03/2015 7909 to 03/04/2015 0253 Date/Time Order Dose Route Action 03/04/2015 0127 sodium chloride 0.9% bolus solution 1,000 mL 0 mL IV Stopped 03/03/2015 7626 sodium chloride 0.9% bolus solution 1,000 mL 1,000 mL IV New Bag Amount and/or Complexity of Data Reviewed --Triage notes reviewed, reviewed nurses noted as well. --Clinical lab tests: ordered and reviewed --Independent visualization of images, tracings, or specimens (including EKGs): yes --Previous electrocardiograms reviewed: no --Review and summarize past medical records: yes --Discuss the patient with other providers: mp Critical Care / Procedures No procedures done during this visit. No critical care time was provided for the patient. Final Disposition / Summary Summary 45 y.o. male who presented with nausea, LLQ pain and dysuria. Hx/o diverticulitis. Blood work unremarkable. CT showed colon thickening, could be possible early diverticulitis. Placed on abx, will have close f/u with GI tomorrow. Well appearing, discharged. 1:00 AM: : I updated the patient on findings, diagnosis, and plan for discharge. Any prescriptions given are listed below and they were instructed to follow up with the given provider. Pt agrees withthe plan and is comfortable going home. The patient is clincally well; my impression is that at this time, they are safe for discharge. I have spent time counseling the patient on their diagnosis, fin dings, results, and plan including strict return to ER instructions for this diagnosis and mandatory follow up. Vitals at Discharge: BP 144/74 mmHg Pulse 83 Temp(Src) 98.1 ??F (36.7 ??C) (Oral) Resp 18 Ht 6' 2 (1.88 m) Wt 122.471 kg BMI 34.65 kg/m2 SpO2 98% New Prescriptions: Discharge Medication List as of 03/04/2015 1:11 AM START taking these medications Details ciprofloxacin HCl (CIPRO) 500 mg tablet Take 1 Tab (500 mg) by mouth 2 times daily., Disp-20 Tab, R-None metroNIDAZOLE (FLAGYL) 500 mg tablet Take 1 Tab (500 mg) by mouth 3 times daily., Disp-30 Tab, R-None sucralfate (CARAFATE) 1 gram tablet Take 1 Tab (1 Gram) by mouth 4 times daily before meals and at bedtime., Disp-12 Tab, R-None CONTINUE these medications which have CHANGED Details omeprazole (PRILOSEC) 40 mg Capsule, Delayed Release(E.C.) Take 1 Cap (40 mg) by mouth daily., Disp-30 Cap, R-None CONTINUE these medications which have NOT CHANGED Details ALPRAZolam (XANAX) 2 mg tablet Take 1 Tab (2 mg) by mouth 3 times daily as needed for Anxiety., Disp-30 Tab, R-0 HYDROcodone-acetaminophen (NORCO) 5-325 mg tablet Take 1 Tab by mouth every 4 hours as needed for Pain, Moderate. Max Daily Amount: 6 Tabs, Disp-30 Tab, R-None ibuprofen (MOTRIN) 800 mg tablet Take 800 mg by mouth every 6 hours as needed for Pain, Mild. ondansetron (ZOFRAN ODT) 4 mg Tablet, Rapid [...] by mouth every 6 hours as needed. Follow Up: [facility] Emergency Department [address] [facility] [address] If symptoms worsen Diagnosis: Encounter Diagnoses Code Name Primary? 789.00 Abdominal pain Yes ??? 787.02 Nausea Disposition: Discharge This note has been prepared by Chance Miller acting as a scribe for Dr. Carlos Hanson on 03/04/2015 at 1:11 AM. The scribe's documentation has been prepared under my direction and personally reviewed by me, Carlos Hanson MD, 03/04/2015 2:54 AM, in its entirety on 03/04/2015 at 2:53 AM. I confirm that thenote above accurately reflects all work, treatment, procedures, and medical decision making performed by me. * Regis Ruth RN - 03/03/2015 10:56 PM CDT Emergency Department Adult Male Abdominal Pain Protocol [facility] ORDERS ARE ENTERED ???PER PROTOCOL?? Nursing Orders: o Undress and place in gown o Insert peripheral IV (excessive vomiting or diarrhea) Laboratory Orders: o CBC with diff ([id number]) o CMP (LAB17) o Urinalysis with Reflex Culture ([id number]) o Obtain lipase (LAB99) if upper abdominal pain o Draw and send extra tubes to lab (ED hold) ([id number]) Diagnostic Test Orders: o If RUQ pain, [...] 01/18, 01/19, 01/20, 01/21, 01/23, 09/26, 08/26; 12/2014 Revised: 01/22, 01/23, 09/26, 12/2014 Revised by: Allie Baker, RN, MSN, RUDDY Nurse Metal Engraver Approved by: Medical Executive Committee, Nursing, Pharmacy & Therapeutics Date: 12/27/2014 * Regis Ruth RN - 03/03/2015 10:50 PM CDT Pt arrives to ED with c/o abdominal pain. Pt states abdominal pain began yesterday and isolated to umbilical area and lower left quadrant. Pt states this is my diverticulitis flaring up. Pt states hehas been seen by a urologist lately due to difficulty urinating, had his urine checked and everything was okay per patient. However, patient states the urologist told him he should be taking Flagyl and Cipro, but was not given any antibiotics. Pt states he has been nauseous, had some difficulty urinating, and having the abdominal pain. Pt denies chest pain, shortness of breath, dizziness, vomiting, diarrhea, or any other complaints at this time. Assessment reveals respirations spontaneous and non labored, skin pink, warm, dry, bowel sounds present x4. Pt is AOx4, slightly anxious, call light in reach, VS as documented, plan of care discussed with patient and family. Regis Ruth RN documented in this encounter Plan of Treatment Not on file documented as of this encounter Procedures Procedure Name Priority Date/Time Associated Diagnosis Comments CT ABDOMEN PELVIS WO CONTRAST Stat 03/04/2015 12:13 AM CDT EKG 12-LEAD Stat 03/03/2015 11:48 PM CDT POC CREATININE Stat 03/03/2015 11:07 PM CDT CBC WITH DIFFERENTIAL Stat 03/03/2015 10:55 PM CDT C-REACTIVE PROTEIN Stat 03/03/2015 10 :55 PM CDT COMPREHENSIVE METABOLIC PANEL Stat 03/03/2015 10:55 PM CDT URINALYSIS WITH REFLEX CULTURE Stat 03/03/2015 10:21 PM CDT documented in this encounter Results * CT ABDOMEN PELVIS WO CONTRAST (03/04/2015 12:13 AM CDT) Anatomical Region Laterality Modality Abdomen Computed Tomogra phy 03/04/2015 12:1 0 AM CDT Impressions 03/04/2015 12:47 AM CDT IMPRESSION: 1. Two to 3 mm nonobstructing renal stones present bilaterally. 2. There is again seen to be abnormal thickening of the proximal sigmoid colon. While this may be the result of a diverticular disease there is little if any surrounding inflammatory changes raising concern that this represents a colonic mass. A colonoscopy is recommended if this has not been performed since most recent previous exam of 11/10/2014. Dictated from location 4. DLP = ??1682 Narrative 03/04/2015 12:47 AM CDT Exam: ??CT ABDOMEN PELVIS WO CONTRAST . ??Mar 04, 2015 12:13:17 AM . History: . ??Abdominal Pain LLQ . Scans were performed without the intravenous injection of contrast. The liver is free of distinct solid masses or evidence of hepatocellular disease. No abnormalities of bile ducts are seen. The gallbladder is surgically absent. The spleen is unremarkable. No pancreatic masses, cysts or inflammation are identified. No renal masses are seen. No renal cyst are seen. There is a 2 to 3 mm nonobstructing renal stones present bilaterally.. No obstruction is seen. The ureters descend without evidence of obstruction or displacement. The urinary bladder is grossly normal. . No pelvic masses, cysts or abnormal fluid collections are seen. No periaortic or pelvic adenopathy is seen. ??There is a normal appendix present.. There is again seen to be abnormal thickening of the proximal sigmoid colon. While this may be the result of a diverticular disease there is little if any surrounding inflammatory changes raising concern that this represents a colonic mass.. No other abnormalities of bowel loop and mesentery are identified. Procedure Note Azar Johnson MD - 03/04/2015 Exam: CT ABDOMEN PELVIS WO CONTRAST . Mar 04, 2015 12:13:17 AM . History: . Abdominal Pain LLQ . Scans were performed without the intravenous injection of contrast. The liver is free of distinct solid masses or evidence of hepatocellular disease. No abnormalities of bile ducts are seen. The gallbladder is surgically absent. The spleen is unremarkable. No pancreatic masses, cysts or inflammation are identified. No renal masses are seen. No renal cyst are seen. There is a 2 to 3 mm nonobstructing renal stones present bilaterally.. No obstruction is seen. The ureters descend without evidence of obstruction or displacement. The urinary bladder is grossly normal. . No pelvic masses, cysts or abnormal fluid collections are seen. No periaortic or pelvic adenopathy is seen. There is a normal appendix present.. There is again seen to be abnormal thickening of the proximal sigmoid colon. While this may be the result of a diverticular disease there is little if any surrounding inflammatory changes raising concern that this represents a colonic mass.. No other abnormalities of bowel loop and mesentery are identified. IMPRESSION IMPRESSION: 1. Two to 3 mm nonobstructing renal stones present bilaterally. 2. There is again seen to be abnormal thickening of the proximal sigmoid colon. While this may be the result of a diverticular disease there is little if any surrounding inflammatory changes raising concern that this represents a colonic mass. A colonoscopy is recommended if this has not been performed since most recent previous exam of 11/10/2014. Dictated from location 4. DLP = [address] ORDERABLES * EKG 12-LEAD (03/03/2015 11:48 PM CDT) 03/03/2015 11:4 8 PM CDT Narrative INTERFACE SYSTEM - 03/04/2015 6:32 AM CDT ? Stationary ECG Study ? [facility] ? Test Date: ?03/03/2015 11:48 PM Pat Name: ? CARLOS CORPUS ? Department: ?? 15 ?Room: ? 24 24 Gender: ? M ?Vmware Architect: ?? alina : ?1970 ? Requested By: EDWIN Sagastume Order Number: [id number] ?Reading MD: ?? Jone Crocker ? Measurements Intervals ?[place] ? Rate: ? 85 ? P: ?57 MN: ? 149 ?QRS: ?45 QRSD: ? 105 ?T: ?15 QT: ? 343 ? QTc: ?409 ? Interpretive Statements ? SINUS RHYTHM Electronically Signed On 03-04-2015 6:32:47 CDT by Jone Crocker Procedure Note Provider, Historical / Jone Crocker MD - 11/25/2021 Stationary ECG Study [facility] Test Date: 03/03/2015 11:48 PM Pat Name: CARLOS KELLY Department: 15 Room: 24 24 Gender: M Vmware Architect: alina : 1970 Requested By: EDWIN Sagastume Order Number: [id number] Elsa MD: Jone Crocker Measurements Intervals [place] Rate: 85 P: 57 MN: 149 QRS: 45 QRSD: 105 T: 15 QT: 343 QTc: 409 Interpretive Statements SINUS RHYTHM Electronically Signed On 03-04-2015 6:32:47 CDT by Jone Crocker Carlos Hanson MD ECG ORDERABLES INTERFACE SYSTEM Refer to clinic/hospital department * POC CREATININE (03/03/2015 11:07 PM CDT) CREATININE POC 1.00 0.70 - 1.20 mg/dL 03/03/2015 11:10 PM CDT [facility] [employer] [facility] GFR >60 >=60 mL/min/1.7 3 sq meter 03/03/2015 11:10 PM CDT [facility] [employer] [facility] Comment: eGFR has not been validated for [...] GFR, >60 >=60 mL/min/1.7 3 sq meter 03/03/2015 11:10 PM CDT [facility] [employer] [facility] Blood, capillary 03/03/2015 11:07 PM CDT 03/03/2015 11:10 PM CDT Protocol [facility] Emergency MD POINT OF CAR E TESTING Performing Organization Address City/[facility] Co de Phone Number [facility] [employer] [facility] CLIA# [id number] [address] [place] [address] * C-REACTIVE PROTEIN (03/03/2015 10:55 PM CDT) Pathologist [facility] CRP 5.1 <6.0 mg/L 03/04/2015 12:21 AM CDT [facility] Blood Venipuncture - Floor Collect / Unknown 03/03/2015 10:55 PM CDT 03/03/2015 11:05 PM CDT Narrative [facility] - [facility] - 03/04/2015 12:21 AM CDT Please note that as part of [employer] standardization the units of measure for CRP has changed from mg/dL to mg/L as of 12/22/14. Carlos Hanson MD CHEMISTRY ORDERAB LES [facility] [employer] [facility]# [id number] [address] [place] [address] * (ABNORMAL) COMPREHENSIVE METABOLIC PANEL (03/03/2015 10:55 PM CDT) Pathologist [facility] SODIUM 141 136 - 145 mmol/L 03/03/2015 11:29 PM CDT [facility] - . [facility] POTASSIUM 3.6 3.5 - 5.0 mmol/L 03/03/2015 11:29 PM CDT [facility] - . [facility] CHLORIDE 103 98 - 107 mmol/L 03/03/2015 11:29 PM CDT [facility] - [facility] CO2 29 22 - 29 mmol/L 03/03/2015 11:29 PM CDT [facility] - [facility] CALCIUM 9.3 8.6 - 10.2 mg/dL 03/03/2015 11:29 PM CDT [facility] - [facility] BUN 8 6 - 20 mg/dL 03/03/2015 11:29 PM CDT [facility] - [facility] CREATININE 0.93 0.67 - 1.17 mg/dL 03/03/2015 11:29 PM CDT [facility] - [facility] GLUCOSE 86 79 - 99 mg/dL 03/03/2015 11:29 PM CDT [facility] - . [facility] TOTAL PROTEIN 7.9 6.7 - 8.6 g/dL 03/03/2015 11:29 PM [facility]OR[facility]ORY SERVICES - . [facility] ALBUMIN 4.6 3.5 - 5.2 g/dL 03/03/2015 11:29 PM [facility]ORY SERVICES - . [facility] BILIRUBIN TOTAL 0.8 0.3 - 1.2 mg/dL 03/03/2015 11:29 PM [facility] LABORATORY SERVICES - [facility] ALKALINE PHOSPHATASE 76 40 - 129 U/L 03/03/2015 11:29 PM [facility] SERVICES - . [facility] AST 42(H) <41 U/L 03/03/2015 11:29 PM [facility] SERVICES - . [facility] ALT 56(H) <42 U/L 03/03/2015 11:29 PM [facility]ORY [facility] GFR >60 >=60 mL/min/1.7 3 sq meter 03/03/2015 11:29 PM [facility] SERVICES [facility] Comment: eGFR has not been validated for [...] GFR, >60 >=60 mL/min/1.7 3 sq meter 03/03/2015 11:29 PM T [facility] ANION GAP 9 8 - 16 mmol/L 03/03/2015 11:29 PM [facility]ORATORY SERVICES - [facility] Blood Venipuncture - Floor Collect / Unknown 03/03/2015 10:55 PM CDT 03/03/2015 11:05 PM CDT Protocol [facility] Emergency MD CHEMISTRY OR DERABLES [facility] [employer] [facility] CLIA# [id number] [address] [facility] [address] [address] * (ABNORMAL) CBC WITH DIFFERENTIAL (03/03/2015 10:55 PM CDT) [facility] WBC 5.9 4.0 - 9.8 K/uL 03/03/2015 11:10 PM CDT [employer] LABORATORY SERVICES - [facility] RBC 5.77(H) 3.90 - 4.90 M/uL 03/03/2015 11:10 PM CDT [employer] LABORATORY SERVICES - . [facility] HEMOGLOBIN 12.9(L) 13.6 - 16.5 g/dL 03/03/2015 11:10 PM CDT [facility]ORAT[facility] SERVICES - [facility] HEMATOCRIT 40.6 40.0 - 48.0 % 03/03/2015 11:10 PM CDT [employer] LABORATORY SERVICES - [facility] MCV 70.4(L) 82.0 - 99.0 fL 03/03/2015 11:10 PM CDT [employer] LABORATORY SERVICES - [facility] MCH 22.4(L) 27.2 - 32.6 pg 03/03/2015 11:10 PM CDT [employer] [facility]ORATORY SERVICES - [facility] MCHC 31.8 30.0 - 36.0 g/dL 03/03/2015 11:10 PM CDT [employer] LABORATORY SERVICES - [facility] RDW 16.8(H) 11.5 - 14.5 % 03/03/2015 11:10 PM CDT [employer] LABORATORY SERVICES - [facility] RDW-STDEV 42.1 37.1 - 48.7 fL 03/03/2015 11:10 PM CDT [employer] LABORATORY SERVICES - [facility] PLATELETS 179 140 - 350 K/uL 03/03/2015 11:10 PM CDT [employer] LABORATORY SERVICES - . [facility] MPV 8.8(L) 9.3 - 12.4 fL 03/03/2015 11:10 PM CDT [employer] LAB[facility]ATORY SERVICES - . [facility] NEUTROPHILS 62 45 - 70 % 03/03/2015 11:10 PM CDT [employer] [facility]ORATORY SERVICES - [facility] LYMPHOCYTES 29 16 - 45 % 03/03/2015 11:10 PM CDT [employer] [facility] - [facility] MONOCYTES 7 3 - 13 % 03/03/2015 11:10 PM CDT [employer] [facility] SERVICES - . [facility] EOSINOPHILS 2 <7 % 03/03/2015 11:10 PM CDT [employer] [facility]ATORY SERVICES - [facility] BASOPHILS 0 <3 % 03/03/2015 11:10 PM CDT [facility] - . [facility] NEUTROPHIL ABSOLUTE 3.60 1.90 - 7.00 K/uL 03/03/2015 11:10 PM CDT [facility] - [facility] LYMPHOCYTE ABSOLUTE 1.72 0.70 - 4.50 K/uL 03/03/2015 11:10 PM CDT [facility] - [facility] MONOCYTE ABSOLUTE 0.43 0.10 - 1.30 K/uL 03/03/2015 11:10 PM CDT [facility] LABORATORY SERVICES - [facility] EOSINOPHIL ABSOLUTE 0.09 <0.70 K/uL 03/03/2015 11:10 PM CDT [facility] - [facility] BASOPHILS ABSOLUTE 0.02 <0.30 K/uL 03/03/2015 11:10 PM CDT [facility] - . [facility] Blood Venipuncture - Floor Collect / Unknown 03/03/2015 10:55 PM CDT 03/03/2015 11:05 PM CDT Protocol [facility] Emergency MD HEMATOLOGY O RDERABLES [facility] LABORATORY SERVICES - [facility]# [id number] [address] [place] [address] [place] [address] * URINALYSIS WITH REFLEX CULTURE (03/03/2015 10:21 PM CDT) COLOR UA Yellow Pale to Dark Yellow 03/03/2015 11:36 PM CDT [facility] - . [facility] CLARITY UA Clear Clear 03/03/2015 11:36 PM CDT [facility] SERVICES - . [facility] SPECIFIC GRAVITY UA 1.017 1.003 - 1.035 03/03/2015 11:36 PM CDT [facility] LAB[facility]ATORY SERVICES - . [facility] PH UA 7.0 5.0 - 8.0 03/03/2015 11:36 PM CDT [facility] SERVICES - . [facility] LEUKOCYTE ESTERASE UA Negative Negative 03/03/2015 11:36 PM CDT [facility] - . [facility] NITRITE UA Negative Negative 03/03/2015 11:36 PM CDT [facility] - . [facility] PROTEIN UA Negative Negative 03/03/2015 11:36 PM CDT [facility] GLUCOSE UA Negative Negative 03/03/2015 11:36 PM CDT [facility] KETONES UA Negative Negative 03/03/2015 11:36 PM CDT [facility] UROBILINOGEN UA Normal <2.0 mg/dL 03/03/2015 11:36 PM CDT [facility] BILIRUBIN UA Negative Negative 03/03/2015 11:36 PM CDT [facility] BLOOD UA Negative Negative 03/03/2015 11:36 PM CDT [facility] Urine, clean catch Collection / Unknown 03/03/2015 10:21 PM CDT 03/03/2015 11:23 PM CDT Edwin Rice MD URINE ORDERABLES [facility]# [id number] [address] [place] [address] documented in this encounter Visit Diagnoses Diagnosis Abdominal pain- Primary Abdominal pain, unspecified site Nausea Nausea alone documented in this encounter Administered Medications Inactive Administered Medications - up to 3 most recent administrations Medication Order MAR Action Action Date Dose Rate Site sodium chloride 0.9% bolus solution 1,000 mL 1,000 mL, IV, ONE TIME ONLY, 1 dose, On 03/03/15 at 2345, at 2,000 mL/hr, Administer over 30 Minutes, Routine New Bag 03/03/2015 11:52 PM CDT 1,000 mL 2000 mL/hr documented in this encounter Active and Recently Administered Medications Times are shown in CDT. Scheduled Medication Order 03/02/2015 03/03/2015 03/04/2015 sodium chloride 0.9% bolus solution 1,000 mL (COMPLETED) 1,000 mL, IV, ONE TIME ONLY, 1 dose, On 03/03/15 at 2345, at 2,000 mL/hr, Administer over 30 Minutes, Routine 2352 (New Bag - Provider: Regis Ruth RN) 0022 (Due: Stopped - Provider: Regis Ruth RN)0127 (Stopped - Provider: Regis Ruth RN) documented in this encounter
--- OUTSIDE RECORDS SUMMARY | 2024-09-10 04:21 | XMS_ITS | Encounter Summary ---
Author Organization [facility] Address [address] [place] [address] Care Team Providers Care Equine Vet Name Role Phone Unavailable Primary Care Provider Unavailabl e Reason for Visit * Reason Onset Date Comments Other 12/23/2015 Encounter Details Date Type Department Care Team (Late st Contact Info) Description 12/23/2015 Telephone [facility] [id number] [place] [address] [address] [place] [address] Howard Trinidad MD NO ADDRESS ON FILE Other Social History Tobacco Use Types Packs/Day [...] encounter Miscellaneous Notes * Telephone Encounter - Alisa Veras - 12/26/2015 4:16 PM CDT Pt refused to give pharmacy info. Explained that it was important to be on medication for his bloodpressure, he did not seem to care. He knows what he needs, and it is not that. Pt is very rude, argumentative about every detail, and goes against everything the dr orders or says. * Telephone Encounter - Alisa Veras - 12/24/2015 1:53 PM CDT Finally reached patient, got updated phone number from Nurse dice table person. Asked patient for an updated address, he said it was the same, [address] [address]. I told him that we had mail returned to us stating that he had moved and left no forwarding address. He said that it was illegal for us to call the post office and find that out. I told him we never called the post office, the mail was returned to us with a little yellow sticker telling us he moved with no forwarding address. Hesaid that was still illegal for us to have that information. He refused to give us an updated address. He said that there is a building down the street from his post office that holds all mail for at least 14 days before returning it to the sender. I asked him if he would like a copy of the returned envelope we received with the dates and the sticker from the post office. He again said something about the building down the street from the post office. He then said he did not want us to have an updated address for him. He then said well how can that be if I got mail from his daughter's college back in November?. I told him we need a current address for his rx's, too. He will not give me an address. He said he uses a photo I.D. To get his rx's. From the pharmacy. He said he is going to find a new doctor. I told him that was fine, and I would let Dr. Trinidad know. I had also told Him in the beginning of the phone call that he could go ahead and stop the Atenolol, but to continue taking the Verapamil. He said he did not have verapamil. I said that we could re write an rx for it, but would need his new address or a pharmacy to call it in to. He said no. Did not want us to have the address, and he uses all different pharmacies, because he calls to see who hasthe cheapest prices on each medication. I said, Sir, I don't know how you want us to help you if you will not give us any information. We will not be able to write an rx and mail it or get it to a pharmacy without any of the info we need. With stopping the Atenolol, you need to at least be on the Verapamil for your blood pressure. He said that did not matter. * Telephone Encounter - Alisa Veras - 12/24/2015 8:41 AM CDT PT CALLED THROUGH NURSE LOOP DRIER OPERATOR TO OUR EXCHANGE LAST NIGHT. L/M WITH NURSE LOOP DRIER OPERATOR TO CALL US BACK WITH ANY UPDATED PHONE NUMBERS THEY MAY HAVE ON THIS PATIENT. DR Martinez SPOKE WITH NURSE LOOP DRIER OPERATOR DHRUV . LAST NIGHT * Telephone Encounter - Alisa Veras - 12/23/2015 3:[address] Martinez, he can stop the atenolol. And what have bp readings been? * Telephone Encounter - Alisa Veras - 12/23/2015 2:26 PM CDT PLEASE GET UPDATED ADDRESS & PHONE NUMBER FROM PATIENT!!!!! * Telephone Encounter - Alisa Veras - 12/23/2015 2:13 PM CDT Pt said he is sleeping a lot. Sleeping 18 hours a day? No appetite, really either. He thinks it is from the atenolol He said he has been put on celexa by another doctor, to help him wean off of the xanax. he will not tell me who the doctor is. Says the atenolol is giving him nightmares, too. What to do? And he still says he should be seeing a neurologist before seeing an orthopedic surgeon for his neck. ??? documented in this encounter Plan of Treatment Not on file documented as of this encounter Visit Diagnoses Diagnosis Diabetes mellitus type 2, controlled, without complications- Primary Sleep apnea, unspecified sleep apnea type Benign hypertension Essential hypertension, benign documented in this encounter
--- OUTSIDE RECORDS SUMMARY | 2024-09-10 04:21 | XMS_ITS | Encounter Summary ---
Author Organization [email or web address] Address [address] [place] [address] Care Team Providers Care Color Print Inspector Name Role Phone Howard Trinidad MD Primary Care Provider Un available Encounter Details Date Type Department Care Team (Late st Contact Info) Description 12/09/2015 Nurse Triage Report [facility] ABSTRACTION Lesia Martínez, RN Social History Tobacco Use Types Packs/Day [...] as of this encounter Progress Notes * Lesia Martínez - 12/09/2015 9:01 PM CDT CHART DOCUMENTATION ONLY Call Type: Triage Call Presenting Problem: I have pain on the left side of my neck. Report feedback to Dr. Memo Trinidad. 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 He indicated he had called PCP office several times today requesting the medication, but he did not hear anything from his doctor. <<<<<<<< TRIAGE/OUTCOME >>>>>>>> Guideline Title: Neck Pain Recommended Disposition: See Provider within 72 Hours Original Inclination: Call Provider/See in 24 Intended Action: Call or see Provider>24 hrs Physician Contacted: No Localized numbness/tingling, weakness, prolonged morning stiffness or pain (not related to recent trauma) that persists despite treatment or self care ? YES documented in this encounter Plan of Treatment Not on file documented as of this encounter Visit Diagnoses Not on filedocumented in this encounter Care Teams Color Print Inspector Relationship Specialty Start Date End Date Howard Trinidad MD PCP - General Family Practice 01/25/16 01/26/16 documented as of this encounter
--- OUTSIDE RECORDS SUMMARY | 2024-09-10 04:21 | XMS_ITS | Encounter Summary ---
Author Organization [employer] Address [address] [place] [address] Care Team Providers Care Whanau Support Worker Name Role Phone Primitivo Zhang MD Primary Care Provider Reason for Visit * Reason Comments Multiple Medical Problems pt reports low er abdominal pain, SOB, nausea, anxiety, diaphroetic, low grade fevers, and epigastric discomfort. Pt reports hx diverticulitis and pt is uring old flagyl and cipro. pt reports urinary urgency at one time when drinking a lot of water. * Auth/Cert Specialty Diagnoses / Procedures Referred By Redd mobley Referred To Contact Emergency Medicine [facility] Emergency Dept [address] [place] [address] Referral ID Status Reason Start Date Expiration Date Visits Re quested Visits Authorized [id number] 1 1 Encounter Details Date Type Department Care Team (Late st Contact Info) Description 07/24/2015 7:45 PM JACQUARD CARD CUTTER - 07/24/2015 10:10 PM [facility] Emergency [facility] Emergency Department [address] [place] [address] Tramaine Reyez MD [address] [facility] [place] [address] Robby Fan MD NO ADDRESS ON FILE Malaise (Primary Dx) Discharge Disposition: Home or Self [...] Sign Reading Time Taken Comments Blood Pressure 134/76 07/24/2015 9:53 PM JACQUARD CARD CUTTER Pulse 90 07/24/2015 9:53 PM JACQUARD CARD CUTTER Temperature 36.9 ??C (98.5 ??F) 07/24/2015 6:11 PM CS T Respiratory Rate 20 07/24/2015 9:53 PM JACQUARD CARD CUTTER Oxygen Saturation 99% 07/24/2015 9:53 PM JACQUARD CARD CUTTER Inhaled Oxygen Concentration - - Weight 111.1 kg (245 lb) 07/24/2015 6:11 PM JACQUARD CARD CUTTER Height 188 cm (6' 2 ) 07/24/2015 6:11 PM JACQUARD CARD CUTTER Body Mass Index 31.46 07/24/2015 6:11 PM JACQUARD CARD CUTTER documented in this encounter Discharge Instructions * Discharge Instructions* Robby Fan MD - 07/24/2015 9:44 PM JACQUARD CARD CUTTER 1. In the face of your symptoms your lab is unrevealing of acute changes. 2. Continue 5 days of antibiotic as directed. 3. Call for new concerns and if you do not feel you are improving over the next few days UARD CARD CUTTER documented in this encounter Medications at Time of Discharge Medication Sig Dispensed Refills Start Date End Date albuterol 90 mcg/Actuation HFA inhaler Take 2 Puffs by inhalation every 6 hours as needed for Shortness of Breath. metroNIDAZOLE (FLAGYL) 500 mg tablet Take 1 Tablet (500 mg) by mouth 3 times daily. 15 Tablet None 07/24/2015 12/03/2015 ciprofloxacin HCl (CIPRO) 500 mg tablet Take 1 Tablet (500 mg) by mouth 2 times daily. 10 Tablet None 07/24/2015 12/03/2015 ferrous sulfate (FEOSOL) 325 mg (65 mg iron) tablet Take 1 Tablet (325 mg) by mouth 2 times daily. 60 Tablet 0 07/02/2015 08/01/2015 MOMETASONE/FORMOTEROL (DULERA INHALATION)Indications :allergies Take 2 Puffs by inhalation every 12 hours . 12/03/2015 acetaminophen (TYLENOL) 325 mg tablet Take 650 mg by mouth nightly as needed . 10/30/2016 ranitidine (ZANTAC) 150 mg tabletIndications:nelson roesophageal reflux disease Take 150 mg by mouth daily . 12/05/2015 hyoscyamine 0.125 mg Tablet, SublingualIndications: irritable bowel syndrome Place 0.125 mg under tongue every 6 hours as needed for Spasm . 12/03/2015 fluticasone (FLONASE) 50 mcg/spray Both Nostril SpSnIndications:allerg ic rhinitis prevention Administer 2 Sprays in each nostril daily . 12/03/2015 promethazine (PHENERGAN) 25 mg Oral tablet Take 25 mg by mouth every 6 hours as needed for Nausea/Emesis . 12/03/2015 documented as of this encounter ED Notes * Julienne Sneed RN - 07/24/2015 9:10 PM CST Pt requesting to speak with ana. Ana contacted at this time. UARD CARD CUTTER * Julienne Sneed RN - 07/24/2015 8:48 PM CST Pt OOB ambulatory with steady gait to give urine sample UARD CARD CUTTER * Julienne Sneed RN - 07/24/2015 8:11 PM CST Pt to ED with multiple medical complaints. Reports fever every night. Reports TMax 99.4. Reports sinus issues/drainage. Denies cough. Also c/o LLQ pain since Wednesday, states It feels like diverticulitis. Pt has hx of diverticulitis. States he was prescribed flagyl and cipro by his MD a couple weeks ago and states But I took it for one day and then he told me to stop because he said it wasn't diverticulitis. Pt states he started taking the antbx again on Wednesday due to LLQ pain. Denies v/d. Reports nausea. Reports LBM today, states All my BMs have been normal. Also states I have bladder pain. Denies urinary frequency/burning. Keithly at bedside at this time. Pt afebrile in triage. Skin PWD. Respirations even and unlabored. PIV inserted by this RN, tolerated well, blood specimen sent to lab. UARD CARD CUTTER * Robby Fan MD - 07/24/2015 7:56 PM CST HISTORY OF PRESENT ILLNESS Carlos Kelly, a 45 y.o. male presents to the ED with a Chief Complaint of Multiple Medical Problems Subjective HPI Comments: 7:56 PM: 45 year old male with h/o DM presents to ED c/o a low grade fever for 1 week. Also states he started with sinus pressure and rhinorrhea. He saw his PCP and was told to f/u with a sinus specialist but not ENT. States he noticed increased urinary frequency and started taking Cipro and Flagyl from previous diverticulitis. He has been on it for 3 days. States his glucose has been normal. Also c/o diffuse abdominal pain, diaphoresis. Denies CP, SOB, N/V, cough, fever, chills, any other complaints. No h/o heart disease or HTN. History provided by: The patient Arrived by: Private vehicle Arrived from: Home REVIEW OF SYSTEMS Review of Systems Constitutional: Positive for fever and diaphoresis. Negative for chills. HENT: Positive for rhinorrhea and sinus pressure. Negative for congestion, sore throat and trouble swallowing. Respiratory: Negative for cough and shortness of breath. Cardiovascular: Negative for chest pain and palpitations. No h/o heart disease or HTN Gastrointestinal: Positive for abdominal pain. Negative for nausea, vomiting and diarrhea. CT proven prior diverticulitis. Patient estimates he has had multiple (15-20) CT scans over time. Endocrine: H/o DM Genitourinary: Negative for dysuria, urgency and difficulty urinating. Musculoskeletal: Negative for back pain and neck pain. Skin: Negative for rash and wound. Neurological: Negative for dizziness, weakness and light-headedness. Hematological: Chronic anemia with hemoglobins around 12. PAST MEDICAL HISTORY REVIEWED MEDICAL: Patient has a past medical history of Depression (anxiety); Anxiety; Panic attacks; Diverticulitis;and Diabetes. SURGICAL: Patient has past surgical history that includes chg removal gallbladder and cholecystectomy. FAMILY: Patient's family history includes Diabetes in his maternal grandfather and maternal grandmother; Other in his father; Stroke in his father. SOCIAL: reports that he has never smoked. [...] of breath) on his problem list. ALLERGIES Bactrim; Contrast; Levaquin; Lidocaine; Morphine; Paxil; Percocet; and Sulfa (sulfonamide antibiotics) HOME MEDICATIONS Patient's Home Medications Current Home Medications ACETAMINOPHEN (TYLENOL) 325 MG TABLET ALBUTEROL 90 MCG/ACTUATION HFA INHALER ALPRAZOLAM (XANAX) 2 MG TABLET FERROUS SULFATE (FEOSOL) 325 MG (65 MG IRON) TABLET FLUTICASONE (FLONASE) 50 MCG/SPRAY BOTH NOSTRIL SPSN HYOSCYAMINE 0.125 MG TABLET, SUBLINGUAL MOMETASONE/FORMOTEROL (DULERA INHALATION) OMEPRAZOLE (PRILOSEC) 40 MG CAPSULE, DELAYED RELEASE(E.C.) PROMETHAZINE (PHENERGAN) 25 MG ORAL TABLET RANITIDINE (ZANTAC) 150 MG TABLET Medications Modified during this Encounter Medications Discontinued during this Encounter CIPROFLOXACIN HCL (CIPRO) 500 MG TABLET METRONIDAZOLE (FLAGYL) 500 MG TABLET Objective PHYSICAL EXAM INITIAL VS BP: (!) 171/93 mmHg (07/24/151810), Heart Rate: 109 bpm (07/24/151810), Resp: 18 (07/24/151810),Temp: 98.5 ??F (36.9 ??C) (07/24/151810), Temp src: Oral (07/24/151810), SpO2: 98 % (07/24/151810), Height: 6' 2 (188 cm) (07/24/151810), Weight: 111.131 kg (07/24/151810), BMI (Calculated): 31.52 (07/24/151810) No LMP for male patient. Physical Exam Constitutional: He is oriented to person, place, and time. He appears well- developed and well-nourished. No distress. Alert stocky male in no disterss HENT: Head: Normocephalic and atraumatic. Right Ear: [...] rate, regular rhythm and intact distal pulses. Exam reveals distant heart sounds. No murmur heard. Pulmonary/Chest: Effort normal and breath sounds normal. No respiratory distress. He has no wheezes. He has no rales. Abdominal: Soft. Bowel sounds are normal. There is no tenderness. There is no rebound and no guarding. Musculoskeletal: Normal range of motion. He exhibits no edema or tenderness. No pedal edema Neurological: He is alert and oriented to person, place, and time. Skin: Skin is warm and dry. No rash noted. No erythema. Psychiatric: Flat affect Nursing note and vitals reviewed. DIAGNOSTICS LAB: Labs this ED Encounter URINALYSIS WITH REFLEX CULTURE - Abnormal LEUKOCYTE ESTERASE UA Trace (*) COLOR UA Yellow CLARITY UA Clear SPECIFIC GRAVITY UA 1.014 PH UA 6.0 NITRITE UA Negative PROTEIN UA Negative GLUCOSE UA Negative KETONES UA Negative UROBILINOGEN UA Normal BILIRUBIN UA Negative BLOOD UA Negative WBC UA 0-2 RBC UA 0-2 BACTERIA UA Negative Narrative: Based on results, a urine culture has been reflexed. CBC WITH DIFFERENTIAL - Abnormal RBC 6.12 (*) HEMOGLOBIN 12.8 (*) MCV 67.8 (*) MCH 20.9 (*) RDW 16.9 (*) MPV 8.8 (*) WBC 7.2 HEMATOCRIT 41.5 MCHC 30.8 RDW-STDEV 40.3 PLATELETS 169 NEUTROPHILS 69 LYMPHOCYTES 25 MONOCYTES 5 EOSINOPHILS 1 BASOPHILS 0 NEUTROPHIL ABSOLUTE 4.98 LYMPHOCYTE ABSOLUTE 1.78 MONOCYTE ABSOLUTE 0.36 EOSINOPHIL ABSOLUTE 0.04 BASOPHILS ABSOLUTE 0.02 COMPREHENSIVE METABOLIC PANEL - Abnormal AST 47 (*) ALT 56 (*) SODIUM 142 POTASSIUM 3.5 CHLORIDE 101 CO2 25 CALCIUM 9.2 BUN 8 CREATININE 0.89 GLUCOSE 88 TOTAL PROTEIN 8.2 ALBUMIN 4.4 BILIRUBIN TOTAL 1.1 ALKALINE PHOSPHATASE 83 GFR >60 GFR, >60 ANION GAP 16 LIPASE - Normal LIPASE 38 C-REACTIVE PROTEIN - Normal CRP 4.2 POC CREATININE - Normal POC CREATININE 0.90 GFR >60 GFR, >60 URINE CULTURE RADIOLOGY: No orders to display EKG: PROCEDURES Procedures MEDICAL DECISION MAKING AND PLAN OF CARE The patient presents with fatigue, a sensation of fever ( but indicates that he takes his temperature is usually around 99.4), and mild nausea and chronic nasal drip. He states he is sleeping 20 hours a day . His exam is unrevealing and his labs shows nothing acute. He is on 3 days of treatment for diverticulitis which he initiated on his own. Although neither his exam or his blood count speak to this I will continue a course of treatment adding 5 more days. I advised that he is really sleeping 20 hours a day he needs to push himself and increase is awake time in activity and if he is not improving to contact his doctor for followup. Henry Fan MD REEVALUATION CASE DISCUSSED . New Prescriptions for this Encounter CIPROFLOXACIN HCL (CIPRO) 500 MG TABLET Take 1 Tablet (500 mg) by mouth 2 times daily. METRONIDAZOLE (FLAGYL) 500 MG TABLET Take 1 Tablet (500 mg) by mouth 3 times daily. LAST VS BP: 134/76 mmHg (07/24/152152), Heart Rate: 109 bpm (07/24/151810), Resp: 20 (07/24/152152), Temp: 98.5 ??F (36.9 ??C) (07/24/151810), Temp src: Oral (07/24/151810), SpO2: 99 % (07/24/152152) CLINICAL IMPRESSION Final diagnoses: [R53.81] Malaise (Primary) CODING MDM Coding Reviewed: previous chart and vitals Reviewed previous: labs, CT scan and ECG Interpretation: SP02, labs, ECG and CT scan I have reviewed nursing notes and agree unless otherwise mentioned. DISPOSITION, EDUCATION AND MEDICATION RECONCILIATION Medications reconciled. See after visit summary for patient education on discharged patients. ATTESTATION STATEMENTS This note has been prepared by Miguel Hwang acting as a scribe for Dr. Robby Fan on 07/24/2015t 9:02 PM. The scribe's documentation has been prepared under my direction and personally reviewed by me, MD Mita, in its entirety on 07/24/2015 at 9:54 PM. I confirm that the note above accurately reflectsall work, treatment, procedures, and medical decision making performed by me. UARD CARD CUTTER * Tila Gaitan RN - 07/24/2015 7:46 PM CST Emergency Department Adult Male Abdominal Pain Protocol [facility] ORDERS ARE ENTERED ???PER PROTOCOL?? Nursing Orders: o Undress and place in gown o Insert peripheral IV (excessive vomiting or diarrhea) Laboratory Orders: o CBC with diff ([id number]) o CMP (LAB17) o Urinalysis with Reflex Culture ([id number]) o Obtain lipase (LAB99) if upper abdominal pain o Draw and send extra tubes to lab (ED hold) ([id number]) Diagnostic Test Orders: o If RUQ pain, [...] 09/26, 08/26; 12/2014 Revised: 01/22, 01/23, 09/26, 08/26; 12/2014 Revised by: Allie Baker, RN, MSN, RUDDY Nurse Preparation Supervisor [place] Approved by: Medical Executive Committee, Nursing, Pharmacy & Therapeutics Date: 12/27/2014 UARD CARD CUTTER documented in this encounter Plan of Treatment Not on file documented as of this encounter Procedures Procedure Name Priority Date/Time Associated Diagnosis Comments URINALYSIS WITH REFLEX CULTURE Stat 07/24/2015 8:46 PM JACQUARD CARD CUTTER URINE CULTURE Stat 07/24/2015 8:46 PM JACQUARD CARD CUTTER POC CREATININE Stat 07/24/2015 8:19 PM JACQUARD CARD CUTTER CBC WITH DIFFERENTIAL Stat 07/24/2015 8:07 PM JACQUARD CARD CUTTER C-REACTIVE PROTEIN Stat 07/24/2015 8: 07 PM JACQUARD CARD CUTTER LIPASE Stat 07/24/2015 8:07 PM JACQUARD CARD CUTTER COMPREHENSIVE METABOLIC PANEL Stat 07/24/2015 8:07 PM JACQUARD CARD CUTTER EKG 12-LEAD Stat 07/24/2015 6:23 PM JACQUARD CARD CUTTER documented in this encounter Results * URINE CULTURE (07/24/2015 8:46 PM JACQUARD CARD CUTTER) CULTURE No growth at 24 hours DENZEL METHOD AEROBIC CULTURE 07/25/2015 3:10 PM JACQUARD CARD CUTTER [facility] LABORAT[facility] Urine, clean catch URINE SPECIMEN OBTAINED BY CLEAN CATCH PROCEDURE / Unknown Collection / Unknown 07/24/2015 8:46 PM JACQUARD CARD CUTTER 07/24/2015 9:03 PM JACQUARD CARD CUTTER Tramaine Reyez MD MICROBIOLOGY - [facility] ORDERABLES [facility] [employer] [facility] CLIA# [id number] [facility] [place] [id number] * (ABNORMAL) URINALYSIS WITH REFLEX CULTURE (07/24/2015 8:46 PM JACQUARD CARD CUTTER) COLOR UA Yellow Pale to Dark Yellow 07/24/2015 9:20 PM JACQUARD CARD CUTTER [facility] CLARITY UA Clear Clear 07/24/2015 9:20 PM JACQUARD CARD CUTTER [facility] SPECIFIC GRAVITY UA 1.014 1.003 - 1.035 07/24/2015 9:[address] [facility] LABOR[facility] PH UA 6.0 5.0 - 8.0 07/24/2015 9:[address] [facility] LEUKOCYTE ESTERASE UA Trace(A) Negative 07/24/2015 9:[address] [facility] LAB[facility] - . [facility] NITRITE UA Negative Negative 07/24/2015 9:[address] [facility] LAB[facility] - . [facility] PROTEIN UA Negative Negative 07/24/2015 9:[address] [facility] - . [facility] GLUCOSE UA Negative Negative 07/24/2015 9:[address] [facility]OR[facility] - . [facility] KETONES UA Negative Negative 07/24/2015 9:[address] [facility] [employer] [facility] UROBILINOGEN UA Normal <2.0 mg/dL 07/24/2015 9:[address] [facility] [employer] [facility] - . [facility] BILIRUBIN UA Negative Negative 07/24/2015 9:[address] [facility] [employer] [facility] BLOOD UA Negative Negative 07/24/2015 9:[address] [facility] - . [facility] WBC UA 0-2 0 - 2 /hpf 07/24/2015 9:[address] [facility] - . [facility] RBC UA 0-2 0 - 2 /hpf 07/24/2015 9:[address] [facility] LAB[facility] - . [facility] BACTERIA UA Negative Negative /hpf 07/24/2015 9:[address] [facility] - . [facility] Urine, clean catch Collection / Unknown 07/24/2015 8:46 PM JACQUARD CARD CUTTER 07/24/2015 9:03 PM JACQUARD CARD CUTTER [facility] LABORATORY [facility] - 07/24/2015 9:20 PM JACQUARD CARD CUTTER Based on results, a urine culture has been reflexed. Tramaine Reyez MD URINE ORDERABLES [facility] [employer] [facility]# [id number] [address] [facility] [place] [place] [address] * POC CREATININE (07/24/2015 8:19 PM JACQUARD CARD CUTTER) CREATININE POC 0.90 0.70 - 1.20 mg/dL 07/24/2015 8:25 PM JACQUARD CARD CUTTER [facility] LABORATORY [facility] GFR >60 >=60 mL/min/1.7 3 sq meter 07/24/2015 8:25 PM [facility] Comment: eGFR has not been validated [...] GFR, >60 >=60 mL/min/1.7 3 sq meter 07/24/2015 8:25 PM JACQUARD CARD CUTTER [facility] Blood, capillary 07/24/2015 8:19 PM JACQUARD CARD CUTTER 07/24/2015 8:25 PM JACQUARD CARD CUTTER Tramaine Reyez MD POINT OF CARE [place] [facility] CLIA# [id number] [address] [place] [address] * C-REACTIVE PROTEIN (07/24/2015 8:07 PM JACQUARD CARD CUTTER) CRP 4.2 <5.0 mg/L 07/24/2015 8:50 PM JACQUARD CARD CUTTER [facility] Blood Venipuncture - Floor Collect / Unknown 07/24/2015 8:07 PM JACQUARD CARD CUTTER 07/24/2015 8:10 PM JACQUARD CARD CUTTER Robby Fan MD CHEMISTRY ORDERABLES [facility] CLIA# [id number] [address] [place] [address] * LIPASE (07/24/2015 8:07 PM JACQUARD CARD CUTTER) LIPASE 38 13 - 60 U/L 07/24/2015 8:50 PM [facility] [employer] [facility] Blood Venipuncture - Floor Collect / Unknown 07/24/2015 8:07 PM JACQUARD CARD CUTTER 07/24/2015 8:10 PM JACQUARD CARD CUTTER Robby Fan MD CHEMISTRY ORDERABLES [employer] LABORATORY SERVICES [facility] CLIA# [id number] [address] [facility] [place], [place] [address] * (ABNORMAL) COMPREHENSIVE METABOLIC PANEL (07/24/2015 8:07 PM JACQUARD CARD CUTTER) SODIUM 142 136 - 145 mmol/L 07/24/2015 8:50 PM [facility] [employer] [facility] POTASSIUM 3.5 3.5 - 5.0 mmol/L 07/24/2015 8:50 PM JACQUARD CARD CUTTER [employer] [facility] CHLORIDE 101 98 - 107 mmol/L 07/24/2015 8:50 PM JACQUARD CARD CUTTER [employer] [facility] CO2 25 22 - 29 mmol/L 07/24/2015 8:50 PM JACQUARD CARD CUTTER [employer] CALCIUM 9.2 8.6 - 10.2 mg/dL 07/24/2015 8:50 PM JACQUARD CARD CUTTER [employer] [facility] BUN 8 6 - 20 mg/dL 07/24/2015 8:50 PM JACQUARD CARD CUTTER [employer] [facility] CREATININE 0.89 0.67 - 1.17 mg/dL 07/24/2015 8:50 PM [facility] GLUCOSE 88 79 - 99 mg/dL 07/24/2015 8:50 PM [facility] TOTAL PROTEIN 8.2 6.7 - 8.6 g/dL 07/24/2015 8:50 PM [facility] ALBUMIN 4.4 3.5 - 5.2 g/dL 07/24/2015 8:50 PM [facility] BILIRUBIN TOTAL 1.1 0.3 - 1.2 mg/dL 07/24/2015 8:50 PM [facility] C[facility] C[facility] ALKALINE PHOSPHATASE 83 40 - 129 U/L 07/24/2015 8:50 PM [facility] AST 47(H) <41 U/L 07/24/2015 8:50 PM [facility] ALT 56(H) <42 U/L 07/24/2015 8:50 PM [facility] GFR >60 >=60 mL/min/1.7 3 sq meter 07/24/2015 8:50 PM [facility] Comment: eGFR has not been validated [...] GFR, >60 >=60 mL/min/1.7 3 sq meter 07/24/2015 8:50 PM [facility] ANION GAP 16 8 - 16 mmol/L 07/24/2015 8:50 PM [facility] Blood Venipuncture - Floor Collect / Unknown 07/24/2015 8:07 PM JACQUARD CARD CUTTER 07/24/2015 8:10 PM JACQUARD CARD CUTTER Robby Fan MD CHEMISTRY [facility]ABLES [facility] [id number] [address] [employer] [facility] [employer] [facility] [place] [address] * (ABNORMAL) CBC WITH DIFFERENTIAL (07/24/2015 8:07 PM JACQUARD CARD CUTTER) WBC 7.2 4.0 - 9.8 K/uL 07/24/2015 8:18 PM [facility] RBC 6.12(H) 3.90 - 4.90 M/uL 07/24/2015 8:18 PM [facility] HEMOGLOBIN 12.8(L) 13.6 - 16.5 g/dL 07/24/2015 8:18 PM JACQUARD CARD CUTTER [employer] [facility] HEMATOCRIT 41.5 40.0 - 48.0 % 07/24/2015 8:18 PM JACQUARD CARD CUTTER [employer] [facility] MCV 67.8(L) 82.0 - 99.0 fL 07/24/2015 8:18 PM JACQUARD CARD CUTTER [employer] [facility] - [facility] MCH 20.9(L) 27.2 - 32.6 pg 07/24/2015 8:18 PM JACQUARD CARD CUTTER [employer] [facility] - [facility] MCHC 30.8 30.0 - 36.0 g/dL 07/24/2015 8:18 PM JACQUARD CARD CUTTER [employer] [facility] - [facility] RDW 16.9(H) 11.5 - 14.5 % 07/24/2015 8:18 PM JACQUARD CARD CUTTER [employer] [facility] SERVICES - [facility] RDW-STDEV 40.3 37.1 - 48.7 fL 07/24/2015 8:18 PM JACQUARD CARD CUTTER [employer] [facility] - [facility] PLATELETS 169 140 - 350 K/uL 07/24/2015 8:18 PM [facility] - [facility] MPV 8.8(L) 9.3 - 12.4 fL 07/24/2015 8:18 PM JACQUARD CARD CUTTER [employer] [facility] NEUTROPHILS 69 45 - 70 % 07/24/2015 8:18 PM JACQUARD CARD CUTTER [employer] LYMPHOCYTES 25 16 - 45 % 07/24/2015 8:18 PM JACQUARD CARD CUTTER [employer] [facility] - [facility] MONOCYTES 5 3 - 13 % 07/24/2015 8:18 PM JACQUARD CARD CUTTER [facility] EOSINOPHILS 1 <7 % 07/24/2015 8:18 PM JACQUARD CARD CUTTER [facility] BASOPHILS 0 <3 % 07/24/2015 8:18 PM JACQUARD CARD CUTTER [facility] NEUTROPHIL ABSOLUTE 4.98 1.90 - 7.00 K/uL 07/24/2015 8:18 PM JACQUARD CARD CUTTER [employer] LYMPHOCYTE ABSOLUTE 1.78 0.70 - 4.50 K/uL 07/24/2015 8:18 PM JACQUARD CARD CUTTER [employer] LAB[facility] - [facility] MONOCYTE ABSOLUTE 0.36 0.10 - 1.30 K/uL 07/24/2015 8:18 PM JACQUARD CARD CUTTER [facility] EOSINOPHIL ABSOLUTE 0.04 <0.70 K/uL 07/24/2015 8:18 PM JACQUARD CARD CUTTER [facility] SERVICES - [facility] BASOPHILS ABSOLUTE 0.02 <0.30 K/uL 07/24/2015 8:18 PM JACQUARD CARD CUTTER [facility] Blood Venipuncture - Floor Collect / Unknown 07/24/2015 8:07 PM JACQUARD CARD CUTTER 07/24/2015 8:10 PM JACQUARD CARD CUTTER Robby Fan MD HEMATOLOGY ORDERABLE S [facility] CLIA# [id number] [address] [place] [address] * EKG 12-LEAD (07/24/2015 6:23 PM JACQUARD CARD CUTTER) 07/24/2015 6:23 PM JACQUARD CARD CUTTER Narrative INTERFACE SYSTEM - 07/25/2015 7:56 AM JACQUARD CARD CUTTER ? Stationary ECG Study ? [facility] ? Test Date: ?07/24/2015 6:23 PM Pat Name: ? VINCENT CORPUS ? Department: ?? 15 ?Room: ? Gender: ? M ?Certified Personal Finance Counselor: ?? hammad : ?1970 ? Requested By: ?? Order Number: [id number] ?Reading MD: ?? Leo Phelps ? Measurements Intervals ?[place] ? Rate: ? 100 ?P: ?39 NC: ? 141 ?QRS: ?47 QRSD: ? 104 ?T: ?14 QT: ? 332 ? QTc: ?429 ? Interpretive Statements ? SINUS TACHYCARDIA NONSPECIFIC T-WAVE ABNORMALITY ABNORMAL RHYTHM ECG Electronically Signed On 07-25-2015 7:56:20 JACQUARD CARD CUTTER by Leo Phelps Procedure Note Provider, Historical / Leo Phelps MD - 11/25/2021 Stationary ECG Study [facility] Test Date: 07/24/2015 6:23 PM Pat Name: CARLOS KELLY Department: 15 Room: Gender: M Certified Personal Finance Counselor: hammad : 1970 Requested By: Order Number: [id number] Reading MD: Leo Phelps Measurements Intervals [place] Rate: 100 P: 39 NC: 141 QRS: 47 QRSD: 104 T: 14 QT: 332 QTc: 429 Interpretive Statements SINUS TACHYCARDIA NONSPECIFIC T-WAVE ABNORMALITY ABNORMAL RHYTHM ECG Electronically Signed On 07-25-2015 7:56:20 JACQUARD CARD CUTTER by Leo Phelps Protocol [facility] Emergency MD ECG ORDERABL ES INTERFACE SYSTEM Refer to clinic/hospital department documented in this encounter Visit Diagnoses Diagnosis Malaise- Primary Other malaise and fatigue documented in this encounter Care Teams [place] Support Worker Relationship Specialty Start Date End Date Primitivo Zhang MD PCP - General Emergency Medicine 07/02/15 11/25/15 documented as of this encounter
--- OUTSIDE RECORDS SUMMARY | 2024-09-10 04:21 | XMS_ITS | Encounter Summary ---
Author Organization [facility] Address [address] [place] [address] Care Team Providers Care Natural Gas Shothole Driller Name Role Phone Unavailable Primary Care Provider Unavailabl e Encounter Details Date Type Department Care Team (Late st Contact Info) Description 02/07/2016 Abstract [facility] Gastroenterology [place] [address] [address] [facility] [address] [place] [address] Provider, Abstract NO ADDRESS ON FILE [...] as of this encounter Progress Notes * Phyllis Flores - 02/07/2016 12:54 PM CDT Patient calling stating that he wanted a appointment with Dr. Jules. After reviewing patients chart I saw that patient was fired from our practice in [address] Andrew. documented in this encounter Plan of Treatment Not on file documented as of this encounter Visit Diagnoses Not on filedocumented in this encounter
--- OUTSIDE RECORDS SUMMARY | 2024-09-10 04:21 | XMS_ITS | Encounter Summary ---
Author Organization [facility] Address [address] [place] [address] Care Team Providers Care Lithoduplicator Operator Name Role Phone Unavailable Primary Care Provider Unavailabl e Encounter Details Date Type Department Care Team (Late st Contact Info) Description 04/29/2011 Orders Only [facility] Admitting [address] [place] [address] Cata Ruby MD [address] [facility] [address] [place] [address] Social History Tobacco Use Types Packs/Day Years [...]
--- OUTSIDE RECORDS SUMMARY | 2024-09-10 04:21 | XMS_ITS | Encounter Summary ---
Author Organization [facility] Address [address] [place] [address] Care Team Providers Care Nurse Practitioner Physician Assistant Name Role Phone Unavailable Primary Care Provider Unavailabl e Encounter Details Date Type Department Care Team (Late st Contact Info) Description 01/06/2016 Abstract [facility] [address] [place] [address] Howard Trinidad MD NO ADDRESS ON FILE Social History Tobacco [...]
--- OUTSIDE RECORDS SUMMARY | 2024-09-10 04:21 | XMS_ITS | Encounter Summary ---
Author Organization [facility] Address [address] [place] [address] Care Team Providers Care Detacher Name Role Phone Unavailable Primary Care Provider Unavailabl e Reason for Visit * Reason Comments Chest Pain pt into ed with c/o chest and abd pain, has had cp x 3 days, pain off/on, also with abd pain, has been being treated for diverticulitis, states he thinks the meds are causing increase in gerd symptoms * Auth/Cert Specialty Diagnoses / Procedures Referred By Redd mobley Referred To Contact Emergency Medicine [facility] Emergency Dept [address] [place] [address] Referral ID Status Reason Start Date Expiration Date Visits Re quested Visits Authorized [id number] 1 1 Encounter Details Date Type Department Care Team (Late st Contact Info) Description 01/31/2016 12:32 AM CDT - 01/31/2016 2:43 AM CDT Emergency [facility] Emergency Department [address] [place] [address] Bartolo Amezcua MD [address] [place] [address] Depression with anxiety (Primary Dx); Gastroesophageal reflux disease without esophagitis; Nausea Discharge Disposition: Home or Self Care [...] Sign Reading Time Taken Comments Blood Pressure 136/72 01/31/2016 2:30 AM CDT Pulse 78 01/31/2016 2:30 AM CDT Temperature 36.7 ??C (98.1 ??F) 01/31/2016 12:30 AM C DT Respiratory Rate 17 01/31/2016 2:30 AM CDT Oxygen Saturation 99% 01/31/2016 2:30 AM CDT Inhaled Oxygen Concentration - - Weight - - Height - - Body Mass Index - - documented in this encounter Discharge Instructions * Discharge Instructions* Yennifer Chambers, CAPSULE FILLER - 01/31/2016 2:34 AM CDT [facility] Psychiatrists: Dr. Estuardo Garcia- [phone] Dr. Mynor Law- [phone] Dr. Arielle Hanley- [phone] Dr. Adin Cotto- [phone] Adult Mental Health Intensive Outpatient Programs (IOP) [facility] [phone] Adult Mental Health 9:15AM - 1:15PM M- [facility] (Chronic mental health) 9:00AM - 12:30PM M-[facility] [phone] Adult Mental Health 8:30AM - 12:00PM -[facility] [phone] Adult Mental Health 9:30AM - 12:30PM , W, F Adult Crisis Management Group 1:00PM - 4:00PM , , F [facility] [phone] Adult Mental Health [choose 3/week] 4:00-7:00PM (M, , W, ) & 10:00AM-1:00PM (T, F) [facility] [phone] Adult Medicare Program (Similar to Journeys) 9:30AM-12:30PM M, , , F [facility] [phone] Adult Medicare Program (Similar to Journeys) 9:25AM - 12:30PM [facility] [phone] Adult Mental Health 9:30AM - 12:30PM M-F [facility] [phone] Adult Medicare Program (Similar to Journeys) 9:30AM - 12:30PM M-F [facility] (Medicare Program for Seniors) 9:30AM - 12:30PM M, W, F [phone] Adult Mental Health 9:30AM - 12:30PM M-F PTSD for Former 9:30AM - 12:30PM M, W, F Family Support Group for MH (free) 6:30PM - 8:30PM 4 weeks (every Wed) [facility] [phone] Adult Mental Health 9:10AM - 12:30PM M-F Adult Medicare Program (Similar to Journeys) 9:30AM - 12:30PM M-F [facility] - [phone] Adult Mental Health 9:30AM - 12:30PM M-F Adult Medicare Program (Similar to Journeys) 9:30AM - 12:30PM M-F [facility] OCD Support Group 7:00PM Every Wednesday [place], [place] - [phone] or [phone], option 1 Adult Mental Health 9:30AM - 12:30PM M, W, F [facility]) - [phone] Adult Mental Health 9:00AM - 12:00PM M-F [place] Program (Similar to Journeys) 10:00AM - 1:30PM M-F Senior Renewal 10:00AM - 1:30PM M-F [facility]) [phone] or [phone] ([facility] does not take Cigna) Adult Mental Health (Private Insurance Only) 9:00AM - 12:30 PM M-F Adult Transitional Care (Similar to Journeys) 9:30AM - 2:00PM M-F [facility] ([place]) [phone] ([facility] does not take Cigna) Adult Mental Health (Private Insurance Only) 9:00AM - 12:30PM M-F Adult Transitional Care (Similar to Journeys) 9:30AM - 2:00PM M-F [facility] [place] ([place]) [phone] ([facility] does not take Cigna) Adult Mental Health (Private Insurance Only) 9:00AM - 12:30PM M-F Adult Transitional Care (Similar to Journeys) 9:30AM - 2:00PM M-F [facility]) [phone] Adult Mental Health 11:30AM - 3:30PM M-F Adult DBT Group 8:30AM - 12:00PM , , [facility]- [phone] ([facility] does not take [employer]) Adult Anxiety and OCD Must choose 3 of 6 sessions, Mon-Sat 10:00AM-12:00PM, 1:00-3:00PM or 3:00-5:00PM [facility] - [phone] ([facility] does not take [employer]) Adult Eating Disorder (6 days/week) - 5:00-8:00PM, F 11:00AM-2:00PM, Sat 8:00-11:00AM * Attachments The following attachments cannot be sent through Care Everywhere. * ANXIETY DISORDER (NIUEAN) * GERD (NIUEAN) * NAUSEA AND VOMITING (NIUEAN) * CHRONIC PAIN (NIUEAN) documented in this encounter Medications at Time of Discharge Medication Sig Dispensed Refills Start Date End Date meclizine (ANTIVERT) 25 mg tabletIndications:Diabe reynold mellitus [...] hours as needed for Shortness of Breath. ondansetron (ZOFRAN ODT) 4 mg Tablet, Rapid Dissolve Place 1 Tablet (4 mg) under tongue every 8 hours as needed for Nausea/Emesis. 15 Tablet 0 01/31/2016 07/17/2016 metoclopramide HCl (REGLAN) 10 mg tablet Take 1 Tablet (10 mg) by mouth 4 times daily before meals and at bedtime. 20 Tablet None 01/31/2016 07/17/2016 acetaminophen (TYLENOL) 325 mg tablet Take 650 mg by mouth nightly as needed . 10/30/2016 documented as of this encounter Progress Notes * Yennifer Chamebrs LPC - 01/31/2016 2:34 AM CDT As requested by ED MD, Pt was provided resources for psychiatrists and IOP. documented in this encounter ED Notes * Meme Abbott RN - 01/31/2016 2:35 AM CDT Intake called at this time to place referrals in pt's discharge paperwork. * Meme Abbott RN - 01/31/2016 1:53 AM CDT Pt refusing all medication at this time. Requesting behavioral health specialist again. MD Amezcua aware. * Meme Abbott RN - 01/31/2016 1:09 AM CDT Pt refusing to give urine sample at this time. States I already know he just wants to test my urine for xanax in my system, so I don't need to go. MD Amezcua aware. * Bartolo Amezcua MD - 01/31/2016 12:54 AM CDT HISTORY OF PRESENT ILLNESS Carlos Mcgee, a 45 y.o. male presents to the ED with a Chief Complaint of Chest Pain Subjective HPI Comments: 12:54 AM: Carlos Mcgee is a 45 y.o. male who presents to the ED with complaint multiple complaints. The patient reports a h/o diverticulitis dx in 2003 which has returned 3 weeks ago. At that time hewen to an ED at [place] and had a CT showing diverticulitis. He was discharged home and does not have a PCP to f/u with. He was placed on abx. 1 week ago he went to [facility] and had no repeat Ct (that is incorrect) but was started on Cipro and flagyl which he finished today. Since completing his abx his pain has worsened. The patient also developed nausea, diarrhea and scant bloodin stool which has now resolved. He also spits up saliva which he showed me a trace amount of. Whenasked about GI f/u the patient states everytime you get a specialist or something they wanna push you off to something else . The patient also c/o intermittent CP lasting 5 mins that started a couple of days ago. He notes it may be associated to his increased reflux. The patient also c/o fatigue for 1 month stating he has been sleeping a lot and is concerned thathe is anemic. The patient also c/o neck pain and a numbness since being adjusted by his chiropractor. The patient also states he has been having anxiety attacks and depression asking to bee seen by [facility].He sees Dr. Renteria last seen 12/14/15. He notes he is out of his psychiatry medications. He is advised to see Dr. Conti. Physician(s): Howard Trinidad MD History provided by: The patient REVIEW OF SYSTEMS Review of Systems Constitutional: Positive for fatigue. Negative for activity change. HENT: Negative. Negative for congestion. Eyes: Negative. Negative for pain. Respiratory: Negative. Negative for chest tightness. Cardiovascular: Positive for chest pain. Gastrointestinal: Positive for nausea, abdominal pain and blood in stool. Genitourinary: Negative. Musculoskeletal: Positive for neck pain. Skin: Negative. Negative for pallor and rash. Neurological: Positive for numbness. Negative for syncope. Psychiatric/Behavioral: Negative for behavioral problems. The patient is nervous/anxious. +depression All other systems reviewed and are negative. PAST MEDICAL HISTORY REVIEWED MEDICAL: Patient has a past medical history of Depression (anxiety); Anxiety; Panic attacks; Diverticulitis;Diabetes; HTN (hypertension); and Chronic neck pain. SURGICAL: Patient has past surgical history that includes chg removal gallbladder and cholecystectomy. FAMILY: Patient's family history includes Diabetes in his maternal grandfather and maternal grandmother; Other in his father; Stroke in his father. SOCIAL: reports that he quit smoking about 20 years ago. His smoking use included Cigarettes. He has a 2 pack-year smoking history. He has never used [...] breath) on his problem list. ALLERGIES Bactrim; Bystolic; Carvedilol; Clindamycin; Clonidine; Contrast; Hydralazine; Levaquin; Lidocaine; Lisinopril; Morphine; Paxil; Pepcid; Percocet; and Sulfa (sulfonamide antibiotics) HOME MEDICATIONS Patient's Home Medications Current Home Medications ACETAMINOPHEN (TYLENOL) 325 MG TABLET ALBUTEROL 90 MCG/ACTUATION HFA INHALER ALPRAZOLAM (XANAX) 2 MG TABLET ATENOLOL (TENORMIN) 100 MG TABLET MECLIZINE (ANTIVERT) 25 MG TABLET OMEPRAZOLE (PRILOSEC) 40 MG CAPSULE, DELAYED RELEASE(E.C.) RANITIDINE (ZANTAC) 150 MG TABLET VERAPAMIL (CALAN) 40 MG TABLET Medications Modified during this Encounter Medications Discontinued during this Encounter Objective PHYSICAL EXAM INITIAL VS BP: (!) 159/90 mmHg (01/31/1629), Heart Rate: 80 bpm (01/31/1629), Resp: 16 (01/31/1629), Temp: 98.1 ??F (36.7 ??C) (05/20/16 0030), Temp src: Oral (01/31/16 0030), SpO2: 99 % (01/31/16 003), Height: (not recorded), Weight: (not recorded), BMI (Calculated): (not recorded) No LMP for male patient. Physical Exam Constitutional: He is oriented to person, place, and time. He appears well- developed and well-nourished. HENT: Head: Normocephalic. Mouth/Throat: Oropharynx is clear and moist. Eyes: [...] ED Encounter CBC WITH DIFFERENTIAL - Abnormal RBC 5.94 (*) HEMOGLOBIN 11.8 (*) MCV 68.4 (*) MCH 19.9 (*) MCHC 29.1 (*) RDW 18.8 (*) MPV 9.1 (*) WBC 6.0 HEMATOCRIT 40.6 RDW-STDEV 42.9 PLATELETS 216 NEUTROPHILS 66 LYMPHOCYTES 24 MONOCYTES 8 EOSINOPHILS 2 BASOPHILS 1 NEUTROPHIL ABSOLUTE 3.94 LYMPHOCYTE ABSOLUTE 1.41 MONOCYTE ABSOLUTE 0.45 EOSINOPHIL ABSOLUTE 0.10 BASOPHILS ABSOLUTE 0.03 IMMATURE GRANULOCYTES 0 IMMATURE GRANULOCYTES ABSOLUTE 0.02 COMPREHENSIVE METABOLIC PANEL - Abnormal POTASSIUM 3.4 (*) AST 67 (*) ALT 58 (*) SODIUM 141 CHLORIDE 101 CO2 29 CALCIUM 9.2 BUN 7 CREATININE 0.86 GLUCOSE 91 TOTAL PROTEIN 8.2 ALBUMIN 4.3 BILIRUBIN TOTAL 0.8 ALKALINE PHOSPHATASE 77 GFR >60 GFR, >60 ANION GAP 11 URINALYSIS WITH REFLEX CULTURE - Abnormal COLOR UA Colorless (*) CLARITY UA Clear SPECIFIC GRAVITY UA 1.002 PH UA 7.0 LEUKOCYTE ESTERASE UA Negative NITRITE UA Negative PROTEIN UA Negative GLUCOSE UA Negative KETONES UA Negative UROBILINOGEN UA Normal BILIRUBIN UA Negative BLOOD UA Negative DRUG SCREEN, URINE - Abnormal BENZODIAZEPINE QUAL, URINE Presumptive Positive (*) CREATININE, URINE 25.8 (*) AMPHETAMINE QUAL, URINE Negative BARBITURATE QUAL, URINE Negative COCAINE QUAL URINE Negative OPIATE QUAL, URINE Negative CANNABINOIDS QUAL, URINE Negative PCP QUAL, URINE Negative Narrative: DOA INTERP: Urine sample was not handled as a legal specimen and was received without a chain of custody. The result should be used only for medical purposes. False positive and erroneous results can occur due to cross-reacting substances and other factors. Depending on the clinical context, confirmation of all presumptive positive results by a more specific alternate method is recommended. A negative result indicates the analyte, if present, is below the screening threshold. Drug Ref. Range Screening Threshold Amphetamines Negative 1000 ng/mL Barbiturates Negative 200 ng/mL Benzodiazepines Negative 300 ng/mL Cannabinoids Negative 50 ng/mL Cocaine Metabolites Negative 300 ng/mL Opiates Negative 300 ng/mL Phencyclidine Negative 25 ng/mL LIPASE - Normal LIPASE 38 CARDIAC ENZYMES - Normal TROPONIN T <0.01 RADIOLOGY: No orders to display EKG: Sinus Rhythm at 81, nl MD, nl QRS, nl QT, nl axis, nl R wave progression, nl EKG. No change from 12/03/15. PROCEDURES Procedures MEDICAL DECISION MAKING AND PLAN OF CARE Summary: 45 y.o. Male with multiple chronic issues including chronic abdomina pain, CP anxiety and PTSD, benzo abuse here with multiple long standing complaints. He provides inaccurate data and has very tangential hx not focusing on any specific complaints. To the best of my knowledge he is here for chronic abd pain which has been CT'd twice in the past 2 weeks at 2 different [facility]. He has had narcotics and benzo's filled from his PCP and the ED's. Patient has GERD like pain which he refuses medications. Objectively he has no abnormalities in his exam labs vitals or EKG. Additionally he is asking for intake to see him so he can get additional Xanax. He states he is out as of jaden carr. Pt fills at 2 pharmacy's one of which is open currently and shows that he has a month supply prescribed by his psychiatrist that is not due to be refilled until 02/02/16. Additionally he had 10 Xanax filled 01/03/16. Pt is very argumentative and refusing care and medications. Pt has been seen multiple times on 12/05/15, 12/03/15, 09/22/15, additionally he was seen at [facility] in [place] on01/23/1612/27, 11/26 and 09/28. Pt apparently also goes to [place] but I do not have their records at this time. DDx: chronic abdominal pain, psychiatric disorder, benzo abuse (Last time I saw him he also became angry after negotiating for Xanax. PLAN: EKG basic labs. If all negative discharge home. REEVALUATION 2:13 AM: Updated pt on results. Plan for discharge. RTER with worsening sx. Pt understands and agrees with the plan. All questions and concerns addressed. The patient is stable for discharge. ED provider and ED nurse verbally discussed patient plan of care at this time. CASE DISCUSSED Medications Administered During the ED Stay from 01/31/2016 0012 to 01/31/2016 0232 Date/Time Order Dose Route Action 01/31/2016 0145 aluminum-magnesium hydroxide (MAALOX) 200-200 mg/5 mL oral suspension 10 mL 10 mL Oral Refused 01/31/2016 0145 ondansetron (ZOFRAN) 4 mg/2 mL injection 4 mg 4 mg IV Refused . New Prescriptions for this Encounter ONDANSETRON (ZOFRAN ODT) 4 MG TABLET, RAPID DISSOLVE Place 1 Tablet (4 mg) under tongue every 8 hours as needed for Nausea/Emesis. LAST VS BP: 128/62 mmHg (01/31/16 0200), Heart Rate: 88 bpm (01/31/16 0200), Resp: 18 (01/31/16 0200), Temp: 98.1 ??F (36.7 ??C) (01/31/16 0030), Temp src: Oral (01/31/160), SpO2: 99 % (01/31/160) CLINICAL IMPRESSION Final diagnoses: [F41.8] Depression with anxiety (Primary) [K21.9] Gastroesophageal reflux disease without esophagitis [R11.0] Nausea CODING MDM Coding Reviewed: previous chart, nursing note and vitals Interpretation: SP02 I have reviewed nursing notes and agree unless otherwise mentioned. DISPOSITION, EDUCATION AND MEDICATION RECONCILIATION Medications reconciled. See after visit summary for patient education on discharged patients. Follow up: [facility], PHYSICIAN REFERRAL LINE [phone] John Conti MD [facility] [address] As scheduled DISCHARGED TO HOME. In stable condition ATTESTATION STATEMENTS This note has been prepared by J Luis Angel acting as a scribe for Dr. Bartolo Amezcua on 01/31/2016at 2:15 PM . The scribe's documentation has been prepared under my direction and personally reviewed by me, ss, in its entirety on 01/31/2016 at 2:32 AM. I confirm that the note above accurately reflects all work, treatment, procedures, and medical decision making performed by me. * Meme Abbott RN - 01/31/2016 12:51 AM CDT Pt states at this time, can I talk to someone in behavioral health about my anxiety? Reports I just have a lot of anxiety about not being able to refill my meds until February 16. Denies SI/HI. MD Amezcua aware, no further orders at this time. Pt non destructive testing supervisor light and states Are you guys going to test to see if I am anemic or not? Pt reassuredand questions answered. MD Amezcua at bedside to assess. * Meme Abbott RN - 01/31/2016 12:41 AM CDT Pt states he has hx of diverticulitis and has been through 2 rounds of Cipro and Flagyl. Reports spitting up white foam and sleeping a lot over the past few days. Also reports nausea. C/o abdominalpain to LLQ and states he is out of his medications until he sees the doctor on the . Reports some intermittent chest pain, but states I mean it hurts a little bit, but I also have a really dry mo uth. Respirations even and unlabored. Pt oriented x 4. Skin warm, dry, and consistent with ethnicity. Resting in stretcher with NAD noted at this time. Vital signs as charted. Will continue to monitor. documented in this encounter Plan of Treatment Not on file documented as of this encounter Procedures Procedure Name Priority Date/Time Associated Diagnosis Comments TELEMETRY REPORT 01/31/2016 8:21 AM CDT URINALYSIS WITH REFLEX CULTURE Stat 01/31/2016 1:36 AM CDT DRUG SCREEN, URINE Stat 01/31/2016 1: 36 AM CDT CARDIAC ENZYMES Stat 01/31/2016 1:08 AM CDT CBC WITH DIFFERENTIAL Stat 01/31/2016 1:08 AM CDT LIPASE Stat 01/31/2016 1:08 AM CDT COMPREHENSIVE METABOLIC PANEL Stat 01/31/2016 1:08 AM CDT documented in this encounter Results * TELEMETRY REPORT (01/31/2016 8:21 AM CDT) Provider Scanning ECG ORDERABLES * (ABNORMAL) DRUG SCREEN, URINE (01/31/2016 1:36 AM CDT) Pathologist [facility] AMPHETAMINE QUAL, URINE Negative Negative 01/31/2016 2:20 AM CDT [employer] [facility]ATORY SERVICES - [facility] BARBITURATE QUAL, URINE Negative Negative 01/31/2016 2:20 AM CDT [employer] [facility] - [facility] BENZODIAZEPINE QUAL, URINE Presumptive Positive(A) Negative 01/31/2016 2:20 AM CDT [employer] LABORATORY SERVICES - [facility] COCAINE QUAL URINE Negative Negative 01/31/2016 2:20 AM CDT [employer] LABORATORY SERVICES - [facility] OPIATE QUAL, URINE Negative Negative 01/31/2016 2:20 AM CDT [employer] LABORATORY SERVICES - [facility] CANNABINOIDS QUAL, URINE Negative Negative 01/31/2016 2:20 AM CDT [facility] PCP QUAL, URINE Negative Negative 01/31/2016 2:20 AM T [facility] CREATININE, URINE 25.8(L) 40.0 - 278.0 mg/dL 01/31/2016 2:20 AM [facility] Comment: Reference Range varies with fluid intake and diet. Urine URINE SPECIMEN OBTAINED BY CLEAN CATCH PROCEDURE / Unknown Collection / Unknown 01/31/2016 1:36 AM CDT 01/31/2016 1:42 AM CDT Narrative [facility] - 01/31/2016 2:20 AM CDT DOA INTERP: Urine sample was not [...] ? Ref. Range ?Screening Threshold Amphetamines ?Negative ?1000 ng/mL Barbiturates ?Negative ? 200 ng/mL Benzodiazepines ? Negative ? 300 ng/mL Cannabinoids ?Negative ?50 ng/mL Cocaine Metabolites ?? Negative ? 300 ng/mL Opiates ? Negative ? 300 ng/mL Phencyclidine ? Negative ?25 ng/mL Bartolo Amezcua MD URINE ORDERABLES [facility] LABORATORY SERVICES - [facility] CLIA# [id number] [address] [place] [address] * (ABNORMAL) URINALYSIS WITH REFLEX CULTURE (01/31/2016 1:36 AM CDT) COLOR UA Colorless(A ) Pale to Dark Yellow 01/31/2016 1:49 AM CDT [employer] [facility]ATORY SERVICES - [facility] CLARITY UA Clear Clear 01/31/2016 1:49 AM CDT [employer] [facility]ORATORY SERVICES - [facility] SPECIFIC GRAVITY UA 1.002 01/31/2016 1:49 AM CDT [employer] [facility] - . [facility] PH UA 7.0 5.0 - 8.0 01/31/2016 1:49 AM CDT [employer] LABORATORY SERVICES - . [facility] LEUKOCYTE ESTERASE UA Negative Negative 01/31/2016 1:49 AM CDT [employer] LABORATORY SERVICES - . [facility] NITRITE UA Negative Negative 01/31/2016 1:49 AM CDT [employer] [facility] SERVICES - [facility] PROTEIN UA Negative Negative 01/31/2016 1:49 AM CDT [employer] LABORATORY SERVICES - . [facility] GLUCOSE UA Negative Negative 01/31/2016 1:49 AM CDT [employer] LABORATORY SERVICES - . [facility] KETONES UA Negative Negative 01/31/2016 1:49 AM T [employer] LABORATORY SERVICES - . [facility] UROBILINOGEN UA Normal <2.0 mg/dL 01/31/2016 1:49 AM CDT [employer] LABORATORY SERVICES - . [facility] BILIRUBIN UA Negative Negative 01/31/2016 1:49 AM CDT [employer] [facility]ATORY SERVICES - [facility] BLOOD UA Negative Negative 01/31/2016 1:49 AM T [employer] [facility]ATORY SERVICES - [facility] Urine URINE SPECIMEN OBTAINED BY CLEAN CATCH PROCEDURE / Unknown Collection / Unknown 01/31/2016 1:36 AM CDT 01/31/2016 1:42 AM CDT Bartolo Amezcua MD URINE ORDERABLES [facility] [employer] SERVICES - [facility] CLIA# [id number] [address] [place] [address] * CARDIAC ENZYMES (01/31/2016 1:08 AM CDT) TROPONIN T <0.01 <0.04 ng/mL 01/31/2016 1:35 AM CDT [facility] LABORATORY SERVICES [facility] Blood Collection / Unknown 01/31/2016 1:08 AM CDT 01/31/2016 1:11 AM CDT Bartolo Amezcua MD CHEMISTRY ORDERABLES [facility] [employer] [facility] CLIA# [id number] [address] [place] [address] * LIPASE (01/31/2016 1:08 AM CDT) LIPASE 38 13 - 60 U/L 01/31/2016 1:37 AM CDT [facility]ORY SERVICES [facility] Blood Collection / Unknown 01/31/2016 1:08 AM CDT 01/31/2016 1:11 AM CDT Bartolo Amezcua MD CHEMISTRY ORDERABLES [facility] [employer] [facility] CLIA# [id number] [address] [place] [address] * (ABNORMAL) COMPREHENSIVE METABOLIC PANEL (01/31/2016 1:08 AM CDT) SODIUM 141 136 - 145 mmol/L 01/31/2016 1:37 AM CDT [employer] LABORATORY SERVICES [facility] POTASSIUM 3.4(L) 3.5 - 5.0 mmol/L 01/31/2016 1:37 AM CDT [employer] [facility] - [facility] CHLORIDE 101 98 - 107 mmol/L 01/31/2016 1:37 AM CDT [employer] [facility]ORATORY SERVICES - [facility] CO2 29 22 - 29 mmol/L 01/31/2016 1:37 AM CDT [employer] [facility]ATORY SERVICES - [facility] CALCIUM 9.2 8.6 - 10.2 mg/dL 01/31/2016 1:37 AM CDT [employer] LAB[facility] SERVICES - [facility] BUN 7 6 - 20 mg/dL 01/31/2016 1:37 AM [email or web address] LABORATORY SERVICES - [facility] CREATININE 0.86 0.67 - 1.17 mg/dL 01/31/2016 1:37 AM [facility] [employer] LABORATORY SERVICES - [facility] GLUCOSE 91 79 - 99 mg/dL 01/31/2016 1:37 AM [email or web address] LABORATORY SERVICES - [facility] TOTAL PROTEIN 8.2 6.7 - 8.6 g/dL 01/31/2016 1:37 AM [email or web address] LABORATORY SERVICES - [facility] ALBUMIN 4.3 3.5 - 5.2 g/dL 01/31/2016 1:37 AM [email or web address] LABORATORY SERVICES - [facility] BILIRUBIN TOTAL 0.8 0.3 - 1.2 mg/dL 01/31/2016 1:37 AM [email or web address] LABORATORY SERVICES - [facility] ALKALINE PHOSPHATASE 77 40 - 129 U/L 01/31/2016 1:37 AM [email or web address] LABORATORY SERVICES - [facility] AST 67(H) <41 U/L 01/31/2016 1:37 AM [email or web address] LABORATORY SERVICES - [facility] ALT 58(H) <42 U/L 01/31/2016 1:37 AM [email or web address] LAB[facility]AT[facility] - [facility] GFR >60 >=60 mL/min/1.7 3 sq meter 01/31/2016 1:37 AM [email or web address] LAB[facility]ATORY [facility] - [facility] Comment: eGFR has not been validated [...] GFR, >60 >=60 mL/min/1.7 3 sq meter 01/31/2016 1:37 AM [email or web address] [facility] ANION GAP 11 8 - 16 mmol/L 01/31/2016 1:37 AM [email or web address] [facility] - [facility] Blood Collection / Unknown 01/31/2016 1:08 AM CDT 01/31/2016 1:11 AM CDT Bartolo Amezcua MD CHEMISTRY ORDERABLES [facility] LABORATORY SERVICES - [facility] CLIA# [id number] 5 SGwen [facility] DESTINY FAZAL GORMAN [id number] * (ABNORMAL) CBC WITH DIFFERENTIAL (01/31/2016 1:08 AM CDT) [facility] WBC 6.0 4.0 - 9.8 K/uL 01/31/2016 1:27 AM CDT [employer] LABORATORY SERVICES - [facility] RBC 5.94(H) 4.50 - 5.40 M/uL 01/31/2016 1:27 AM T [employer] LABORATORY SERVICES - [facility] HEMOGLOBIN 11.8(L) 13.6 - 16.5 g/dL 01/31/2016 1:27 AM CDT [employer] LABORATORY SERVICES - [facility] HEMATOCRIT 40.6 40.0 - 48.0 % 01/31/2016 1:27 AM CDT [employer] LAB[facility]ATORY SERVICES - [facility] MCV 68.4(L) 82.0 - 99.0 fL 01/31/2016 1:27 AM CDT [employer] LAB[facility]ATORY SERVICES - [facility] MCH 19.9(L) 27.2 - 32.6 pg 01/31/2016 1:27 AM CDT [employer] LAB[facility]ATORY SERVICES - [facility] MCHC 29.1(L) 31.5 - 35.5 g/dL 01/31/2016 1:27 AM CDT [employer] LABORATORY SERVICES - [facility] RDW 18.8(H) 11.5 - 14.5 % 01/31/2016 1:27 AM CDT [employer] LABORATORY SERVICES - [facility] RDW-STDEV 42.9 37.1 - 48.7 fL 01/31/2016 1:27 AM CDT [employer] LABORATORY SERVICES - [facility] PLATELETS 216 140 - 350 K/uL 01/31/2016 1:27 AM CDT [employer] LABORATORY SERVICES - [facility] MPV 9.1(L) 9.3 - 12.4 fL 01/31/2016 1:27 AM CDT [employer] LAB[facility]ATORY SERVICES - [facility] NEUTROPHILS 66 45 - 70 % 01/31/2016 1:27 AM CDT [employer] LAB[facility]ATORY SERVICES - [facility] LYMPHOCYTES 24 16 - 45 % 01/31/2016 1:27 AM CDT [facility] LABORATORY SERVICES - [facility] MONOCYTES 8 3 - 13 % 01/31/2016 1:27 AM CDT [facility] LABORATORY SERVICES - [facility] EOSINOPHILS 2 <=8 % 01/31/2016 1:27 AM CDT [facility]ORY SERVICES - [facility] BASOPHILS 1 <=2 % 01/31/2016 1:27 AM CDT [employer] LAB[facility]ATORY SERVICES - [facility] NEUTROPHIL ABSOLUTE 3.94 1.90 - 7.00 K/uL 01/31/2016 1:27 AM CDT [employer] LAB[facility]ATORY SERVICES - [facility] LYMPHOCYTE ABSOLUTE 1.41 0.70 - 4.50 K/uL 01/31/2016 1:27 AM CDT [employer] LAB[facility]ATORY SERVICES - [facility] MONOCYTE ABSOLUTE 0.45 0.10 - 1.30 K/uL 01/31/2016 1:27 AM CDT [employer] LAB[facility]ATORY SERVICES - [facility] EOSINOPHIL ABSOLUTE 0.10 <0.80 K/uL 01/31/2016 1:27 AM CDT [employer] LAB[facility]ATORY SERVICES - [facility] BASOPHILS ABSOLUTE 0.03 <=0.20 K/uL 01/31/2016 1:27 AM CDT [employer] LAB[facility]ATORY SERVICES - [facility] IMMATURE GRANULOCYTES 0 <=0 % 01/31/2016 1:27 AM CDT [employer] LAB[facility]ATORY SERVICES - [facility] IMMATURE GRANULOCYTES ABSOLUTE 0.02 0.00 - 0.03 K/uL 01/31/2016 1:27 AM T [employer] LAB[facility]ATORY SERVICES - [facility] Blood Collection / Unknown 01/31/2016 1:08 AM CDT 01/31/2016 1:11 AM CDT Bartolo Amezcua MD HEMATOLOGY ORDERABLE S [facility] LAB[facility]ATORY SERVICES - [facility] CLIA# [id number] 5 [facility] JOEL FAZAL ARELLANO [id number] documented in this encounter Visit Diagnoses Diagnosis Depression with anxiety- Primary Dysthymic disorder Gastroesophageal reflux disease without esophagitis Esophageal reflux Nausea Nausea alone documented in this encounter Active and Recently Administered Medications
--- OUTSIDE RECORDS SUMMARY | 2024-09-10 04:21 | XMS_ITS | Encounter Summary ---
Author Organization [facility] Address [address] [place] [address] Care Team Providers Care Information Systems Project Manager Name Role Phone Unavailable Primary Care Provider Unavailabl e Reason for Visit * Reason Onset Date Comments Medication Review 12/24/2015 Encounter Details Date Type Department Care Team (Late st Contact Info) Description 12/24/2015 Telephone [facility] [id number] [place], [place] [address] [place] [address] Howard Trinidad MD NO ADDRESS ON FILE Medication Review Social History Tobacco Use Types Packs/Day Years [...] encounter Miscellaneous Notes * Telephone Encounter - Howard Trinidad MD - 12/24/2015 1:47 PM CDT He should taper atenolol was on 50 bid should go to 50 qd for 1 week then 50 qod then quit is also on calan * Telephone Encounter - Silvina Grewal - 12/24/2015 12:47 PM CDT Stop atenolol ween not quit. Supposedly , was suppose to be prescribed something different. Atenolol makes him not feel good at all He's very rude. documented in this encounter Plan of Treatment Not on file documented as of this encounter Visit Diagnoses Not on filedocumented in this encounter
--- OUTSIDE RECORDS SUMMARY | 2024-09-10 04:21 | XMS_ITS | Encounter Summary ---
Author Organization [facility] Address [address] [place] [address] Care Team Providers Care Hard Metals Hand Engraver Name Role Phone Howard Trinidad MD Primary Care Provider Un available Encounter Details Date Type Department Care Team (Late st Contact Info) Description 12/23/2015 Nurse Triage Report [facility] Seema Cueva, RN Social History Tobacco Use Types Packs/Day [...] as of this encounter Progress Notes * Seema Cueva, RN - 12/23/2015 10:19 PM CDT CHART DOCUMENTATION ONLY Call Type: Triage Call Presenting Problem: I've been having headaches, and I'm sleeping too much possibly from my BP Rx. Report feedback to Dr. Trinidad. Associated Symptoms: He c/o RUSSO and states he is on atenolol and really shouldn't be on it as a diabetic and a person with asthma and sleep apnea, upset stomach, sleeping all the time. When read the note from the office today to stop the atenolol, he says he cannot just stop Onset: for 3-4 months Location: body Pain Assessment: 1 - 10 with 10 being the most severe pain neck pain per usual Treatment so far for current presenting problem: excedrin for RUSSO History (Clinical Problems): Pt feels he has been given the atenolol but should be given something else for his HBP. Pt states his BP is normal, that he has had elevated BP because the BP cuff used to test him was too small. He called the office today and did not get a call back. Medications: epic review Medication reactions: epic review <<<<<<<< TRIAGE NOTE >>>>>>>> Triage Note: Commercial Lending Vice President Seema Cueva added this note on Dec 23 2015 10:19PM: Pt states he needs something different from atenolol because it is not a good medication from him. He is upset that the MD never called him today after he called [address] Trinidad and he said, as he had earlier today, that pt can stop the atenolol and can go to the ED if the pressure goes up. I also let pt know that he had been given the verapamil 12/04, with instructions to taper the atenolol and then when to start the verapamil. I read to him from the chart notes in epic from his visit and calls after. He states he never got a taper for the atenolol and never got a prescription for verapamil. He states he would like the office to call him in the morning to clear all this up. He said he will not stop the atenolol. He stated that if the office doesn't call him in the morning, they will have to speak with his taker off drying kiln because he is upset with the lies here. I had to end the call for an emergency call and pt did say thank you. <<<<<<<< TRIAGE/OUTCOME >>>>>>>> Guideline Title: Headache ; Headache Recommended Disposition: See Provider within 4 hours Original Inclination: Call Provider/See in 24 Override Disposition: Call Provider Immediately Intended Action: Call Provider Immediately Physician Contacted: No New onset of severe headache unrelieved with 4 hours of home care ? YES documented in this encounter Plan of Treatment Not on file documented as of this encounter Visit Diagnoses Not on filedocumented in this encounter Care Teams Hard Metals Hand Engraver Relationship Specialty Start Date End Date Howard Trinidad MD PCP - General Family Practice 01/25/16 01/26/16 documented as of this encounter
--- OUTSIDE RECORDS SUMMARY | 2024-09-10 04:21 | XMS_ITS | Encounter Summary ---
Author Organization [facility] Address [address] [place] [address] Care Team Providers Care Rabies Inspector Name Role Phone Unavailable Primary Care Provider Unavailabl e Reason for Referral * Outpatient Services (Routine) - Closed Specialty Diagnoses / Procedures Referred By Contac t Referred To Contact MRI Diagnoses Cervical spondylosis without myelopathy Procedures MRI CERVICAL WO CONTRAST Ángel Boyer MD NO ADDRESS ON FILE Referral ID Status Reason Start Date Expiration Date V isits Requested Visits Authorized [id number] Closed [facility] 10/01/2014 11/01/2015 1 1 MACHINE OPERATOR HELPER Reason for Visit * Outpatient Services (Routine) - Closed Specialty Diagnoses / Procedures Referred By Contac t Referred To Contact MRI Diagnoses Cervical spondylosis without myelopathy Procedures MRI CERVICAL WO CONTRAST Ángel Boyer MD NO ADDRESS ON FILE Referral ID Status Reason Start Date Expiration Date V isits Requested Visits Authorized [id number] Closed [facility] 10/01/2014 11/01/2015 1 1 Encounter Details Date Type Department Care Team (Latest Contact Info) Description 10/22/2014 7:00 PM [employer] MACHINE OPERATOR HELPER - 10/22/2014 11:59 PM [facility] Hospital Encounter [facility] [address] [place] [address] Ángel Boyer MD NO ADDRESS ON FILE Discharge Disposition: Home or Self Care Social [...] hours as needed for Shortness of Breath. cyclobenzaprine (FLEXERIL) 5 mg Tablet Take 1 [...] . 12/03/2015 documented as of this encounter Progress Notes * Landy Catalan RT - 10/21/2014 6:37 PM CST Pt called on Wednesday at 635pm to notify us of new cell number. [phone] RT Deon MACHINE OPERATOR HELPER documented in this encounter Plan of Treatment Not on file documented as of this encounter Procedures Procedure Name Priority Date/Time Associated Diagnosis Comments MRI CERVICAL WO CONTRAST Routine 10/22/2014 8:04 PM BI[employer] MACHINE OPERATOR HELPER Cervical spondylosis without myelopathy documented in this encounter Results * MRI CERVICAL WO CONTRAST (10/22/2014 8:04 PM BIAS MACHINE OPERATOR HELPER) Anatomical Region Laterality Modality Spine Magnetic Resonan ce 10/22/2014 7:44 PM BIAS MACHINE OPERATOR HELPER Impressions 10/24/2014 12:16 PM BIAS MACHINE OPERATOR HELPER IMPRESSION: Multilevel degenerative change of the cervical spine, most advanced at C5-C6 with mild spinal canal stenosis and likely moderate right foraminal stenosis. Dictated from Location [address] [place] [address]. Narrative 10/24/2014 12:16 PM BIAS MACHINE OPERATOR HELPER MRI CERVICAL WO IV CONTRAST DATE: 10/22/2014 INDICATION: 44 year-old male with cervical spondylosis. COMPARISON: CT cervical spine 08/28/2014. TECHNIQUE: Multiplanar multisequence imaging of the cervical spine was performed without contrast. FINDINGS: There is redemonstration of slight reversal of the cervical lordosis centered at the level of C5-C6. There is no significant spondylolisthesis. Vertebral body height and alignment are otherwise maintained. There is minimal degenerative endplate changes at C5-C6. Mild anterior osteophytes at C5-C6 and C6-C7. Craniocervical junction is maintained. Multilevel disc desiccation with disc height loss most advanced at C5-C6. No significant abnormal bone marrow signal. There is no abnormal STIR signal of the paravertebral soft tissues. Imaged aspects of the posterior fossa are without significant abnormality. Imaged cord is normal in caliber and signal throughout. Prevertebral soft tissues are normal in appearance. There is no appreciable cervical lymphadenopathy. The thyroid gland is without suspicious abnormality. C2-C3: The disc is normal in configuration. No spinal canal or foraminal stenosis. C3-C4: There is a mild posterior disc bulge. No significant spinal canal or foraminal stenosis. C4-C5: There is a minimal posterior disc osteophyte complex. Mild bilateral uncovertebral hypertrophy. Minimal spinal canal stenosis. Mild bilateral foraminal stenosis. C5-C6: There is a prominent posterior disc osteophyte complex and moderate bilateral uncovertebral hypertrophy. At least moderate right and mild to moderate left foraminal stenosis. Mild spinal canal stenosis. C6-C7: There is a minimal posterior disc bulge. Mild bilateral uncovertebral hypertrophy. Minimal right foraminal stenosis. No significant spinal canal stenosis. C7-T1: The disc is normal in configuration. No spinal canal or foraminal stenosis. Procedure Note Leonard Gloria MD - 10/24/2014 MRI CERVICAL WO IV CONTRAST DATE: 10/22/2014 INDICATION: 44 year-old male with cervical spondylosis. COMPARISON: CT cervical spine 08/28/2014. TECHNIQUE: Multiplanar multisequence imaging of the cervical spine was performed without contrast. FINDINGS: There is redemonstration of slight reversal of the cervical lordosis centered at the level of C5-C6. There is no significant spondylolisthesis. Vertebral body height and alignment are otherwise maintained. There is minimal degenerative endplate changes at C5-C6. Mild anterior osteophytes at C5-C6 and C6-C7. Craniocervical junction is maintained. Multilevel disc desiccation with disc height loss most advanced at C5-C6. No significant abnormal bone marrow signal. There is no abnormal STIR signal of the paravertebral soft tissues. Imaged aspects of the posterior fossa are without significant abnormality. Imaged cord is normal in caliber and signal throughout. Prevertebral soft tissues are normal in appearance. There is no appreciable cervical lymphadenopathy. The thyroid gland is without suspicious abnormality. C2-C3: The disc is normal in configuration. No spinal canal or foraminal stenosis. C3-C4: There is a mild posterior disc bulge. No significant spinal canal or foraminal stenosis. C4-C5: There is a minimal posterior disc osteophyte complex. Mild bilateral uncovertebral hypertrophy. Minimal spinal canal stenosis. Mild bilateral foraminal stenosis. C5-C6: There is a prominent posterior disc osteophyte complex and moderate bilateral uncovertebral hypertrophy. At least moderate right and mild to moderate left foraminal stenosis. Mild spinal canal stenosis. C6-C7: There is a minimal posterior disc bulge. Mild bilateral uncovertebral hypertrophy. Minimal right foraminal stenosis. No significant spinal canal stenosis. C7-T1: The disc is normal in configuration. No spinal canal or foraminal stenosis. IMPRESSION IMPRESSION: Multilevel degenerative change of the cervical spine, most advanced at C5-C6 with mild spinal canal stenosis and likely moderate right foraminal stenosis. Dictated from [address] Ángel Boyer MD MR ORDERABLES documented in this encounter Visit Diagnoses Diagnosis Cervical spondylosis without myelopathy documented in this encounter
--- OUTSIDE RECORDS SUMMARY | 2024-09-10 04:21 | XMS_ITS | Encounter Summary ---
Author Organization [facility] Address 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 pt states that he feels shaky all over with occasional episodes of CP and SOB. pt states that he was evaluated at OSH last week for the same CP and discharged. pt has been sleeping more than normal and states that he is on edge * Auth/Cert - Closed Specialty Diagnoses / Procedures Referred By Redd mobley Referred To Contact Emergency Medicine [facility] Emergency Dept [address] [place] [address] Referral ID Status Reason Start Date Expiration Date Visits Re quested Visits Authorized [id number] Closed 1 1 Encounter Details Date Type Department Care Team (Late st Contact Info) Description 01/07/2015 10:46 PM CDT - 01/08/2015 1:49 AM CDT Emergency [facility] Emergency Department [address] [place] [address] Ian Gauthier DO NO ADDRESS ON FILE Anxiety (Primary Dx); Neck pain; Chest pain, unspecified chest pain type Discharge Disposition: Home or Self Care [...] Reading Time Taken Comments Blood Pressure 136/72 01/08/2015 1:21 AM CDT Pulse 89 01/07/2015 10:03 PM CDT Temperature 36.4 ??C (97.5 ??F) 01/07/2015 10:03 PM C DT Respiratory Rate 18 01/08/2015 1:21 AM CDT Oxygen Saturation 97% 01/08/2015 1:21 AM CDT Inhaled Oxygen Concentration - - Weight 120.2 kg (265 lb) 01/07/2015 10:03 PM CDT Height 188 cm (6' 2 ) 01/07/2015 10:03 PM CDT Body Mass Index 34.02 01/07/2015 10:03 PM CDT documented in this encounter Discharge Instructions * Discharge Instructions* Anne Marie Kenney, ROBOTICS APPLICATION ENGINEER - 01/08/2015 12:53 AM CDT Referrals for [facility] [phone]; [facility] [phone]. [facility] has psychiatrists and therapists [phone]; [facility] does too [phone] Suicide Prevention/Crisis Hotlines [facility] - Behavioral Health Intake Department [phone] [facility] Behavioral Health Intake Department is professionally staffed and offers free, confidential evaluations for anyone needing assistance with a psychiatric, behavioral or addictive disorder. Evaluations, as well as referrals to physicians or community resources, are available 24 hours aday, 7 days a week. [facility] 014-130-JVLC ([phone]) [facility] is one of the nation???s [facility] suicide prevention and crisis hotlines. [facility] operates 24 hours a day, 7 days a week, 365 days a year. [facility] ([facility]) [phone] (toll free) [facility] (R) is a professionally staffed crisis response service. [facility] provides expert behavioral health, crisis response, and outreach services, 24 hours a day, seven days a week to agencies and companies worldwide. National Suicide Prevention Hotline 9-607-215-TALK (5419) A free, 24-hour hotline available to anyone in suicidal crisis or emotional distress. Your call will be routed to the nearest crisis center to you. National [facility] Network 4-620-XASLCIA KUTO (Kids Under Twenty-One) Crisis Helpline 8-037-738-KUTO (3930) Youth staffed every day after 4pm FIELD OPERATOR The KUTO Crisis Helpline is a confidential telephone hotline available to any youth who may be in need of assistance, referral information or crisis services. The [facility] Helpline is one of a handful [facility] staffed exclusively by youth volunteers. National [facility] on Mental Illness ([facility]) 945.583.6861 * Attachments The following attachments cannot be sent through Care Everywhere. * ANXIETY DISORDER (CAMBODIAN) * CHEST PAIN (CAMBODIAN) documented in this encounter Medications at Time [...] as of this encounter Progress Notes * Anne Marie Kenney, ROBOTICS APPLICATION ENGINEER - 01/08/2015 1:15 AM CDT Carlos Mcgee is a 44 y.o. male who presents for Behavioral Health intake evaluation at [facility] ED. Patient is alone and information was obtained from past medical records and patient. Collateral information obtained: Yes Explain:past medical records Name of Bartender/Primary Contact/Relationship/phone #: none Release of Info Signed: no - not needed Living Arrangements: Lives alone (01/08/[address]) Current Living Situation: One-story home (01/08/[address]) Chief Complaint (Pt Report of Reason for Presentation): anxiety Narrative Summary: Precipitating event(s)( past 24-72 hours leading to presentation to the hospital): patient came in due to anxiety and physical complaints regarding his anxiety. Patient asked the doctor if he could speak with a counselor about referrals for psychiatry and counseling. During the interview patient did a lot of name dropping and implied a lot of things about his childhood that included his family'sinvolvement in the [employer] and gangster type activity. Patient also reported that his mother was buriedlast Wednesday. He has had several losses lately. Patient hates that he has panic disorder and feelslike a loser that he has nightmares and is afraid of heights. Patient also talked about how everyone comes to him to have him fix their problems but he has no one to turn to. Patient denies suicidal and homicidal ideations; no psychosis noted. Triggers/stressors:feels like he has a lot of pressure from other people Risk Assessment Patient was not positive for thoughts of harm to self/others. Explain:none Patient was not positive for history of previous suicide attempts Explain:denies Patient was not positive for self-injurious behavior. Explain:none Access to Firearms: yes (01/08/15 0100) If yes, plan to limit access Impairment in Functioning: moderate HIGH RISK SUICIDE ASSESSMENT Patient agrees to participate in the risk assessment. Patient was not positive for suicide attempt. If positive, the following is an explanation of the attempt and surrounding circumstances:Not Applicable 1. If positive for a suicide attempt, ask ???How do you feel about the fact that your attempt was unsuccessful??? Carlos responds: Not Applicable 2. When asked, ???Do you currently have any thoughts of wishing to be ??? or Wish you could go to sleep and not wake up? Carlos replies: no (If yes, proceed with questions a-c. If no, proceed to question 3.) a. When asked, ???Do you currently have any thoughts of actually killing yourself??? Carlos replies: No. b. When asked, ???Do you currently have a plan that you would use to commit suicide??? Carlos replies: N/A. If yes, explain: Not Applicable c. When asked, ???Do you have access to your chosen method at home, guns in the home, medications, etc??? Arceliaent replies:N/A. If yes, explain: Not Applicable 3. When asked, ???Are there circumstances that trigger suicidal thinking? (Loss of loved one, substance abuse, relationship problems, abuse, financial problems, health issues, hopelessness) Carlos replies: no. If yes, explain: Not Applicable 4. When asked, ???Has anyone close to you ever attempted or were successful in an act of suicide? Carlos responds: no. If yes, ???What were the circumstances, and how did you cope? (ie: their age, method used, your relationship to them, your age at the time): Not Applicable 5. When asked, ???What are you hopeful for??? or ???Tell me about something you are looking forward to.?? Carlos responds: my kids 6. When asked, ???Do you feel like you have control over your situation, or any aspects of your life??? Carlos responds: yes 7. The following protective factors were identified/reviewed with Carlos during this shift: has resources 8. The following safety plan was identified/reviewed by Carlos during this shift: referrals given 9. Is Carlos experiencing auditory hallucinations that command self harm? No During interview, Carlos exhibits/relays the following signs of anxiety/agitation: (Based on the [place]ala Anxiety Scale) [] None [] Anxious mood (worries and anticipates the worst) [] Tension (startles easily, cries easily, restless, trembling) [] Insomnia (reports difficulty falling or staying asleep, nightmares) [] Difficulty concentrating, poor memory [] Depressed mood, lack of interest, lack of pleasure in hobbies [] Tachycardia, palpitations, chest pain, sensation of feeling faint [] Choking sensation, Shortness of breath [] Dry mouth, flushing, pallor, sweating [] Fidgets, tremors, paces [] Displays high level of physical and/or verbal activity, calms down with instruction [] Displays high level of physical and/or verbal activity, not able to calm with Instructions. [] Violent [] Has a known history of violence. Current Treatment Involvement: Current mental health care providers/phone #: none at this time Current medical provider/phone #: none Past Treatment History: Number of prior hospitalizations: none Has patient been discharged from a hospital within the last 30 days:no List ALL Current Home Medications(per parent/caregiver report): xanax Family History of Mental Illness/Substance Abuse: None reported Pertinent Psychosocial History: } Employment Status: employed Psychosocial Stressors: family issues Support System:extended family Patient is negative for substance abuse issues. Mental Status Evaluation Appearance: Within normal limits (01/08/1599) Behavior: Cooperative (01/08/1599) Observed Emotional State: anxious (01/08/1599) Speech: clear (01/08/1599) Symptoms: Loss of interest (01/08/1599) Symptoms: Panic attack (01/08/1599) Symptoms: No problems reported or observed (01/08/1599) Thought Processes: Blocking (01/08/1599) Social Judgement: Appropriate to situation (01/08/1599) Sensorium/Orientation:person, place, time/date and situation Cognition:average for level of education Quality of Sleep:fair with nightime awakenings Current number of hours of sleep: has nightmares frequently Changes in Appetite:no change from normal Special needs: Does patient have any special needs that require assistance, such as walker, wheelchair, CPAP, visual aids, hearing aids, filler block inserter remover services, etc? no Patient Strengths: has resources, has support system Patient Weaknesses: poor insight, recent and numerous losses Plan/Disposition: Referral to providers given Consulting Physician: Abrahan Attending Physician: n/a On-Call Psychiatrist: Doe Hand-Off Report Given: yes [place] I: generalized anxiety disorder [place] II: Deferred [place] III: overweight [place] IV: Other psychosocial or environmental problems and Problems related to social environment [place] V: 57 Legal Status: voluntarily Suicide Hotline Resources Provided: yes documented in this encounter ED Notes * Bertha Kasper RN - 01/08/2015 1:48 AM CDT Patient discharged to home via ambulatory with steady gait with spouse. Patient states feeling better. Discharge information and education provided to patient. Questions answered, understanding of discharge instruction verbalized. Printed copy given. 2 prescriptions given. * Alexandria Smith RN - 01/08/2015 12:23 AM CDT Patient/family has been informed about benefits and any potential clinically significant side effects or other concerns regarding the administration of the drug they have just been given. Sudarshan with remains at bedside. * Ayah Martins RN - 01/07/2015 11:45 PM CDT Intake aware to see pt. Pt continues to have anxiety about monitors in the room and about past experiences at the ED. Pt makes no eye contact while speaking with this RN. Pt seems to have a flight ofideas but remains calm at this time. * Ian Gauthier DO - 01/07/2015 11:10 PM CDT HISTORY OF PRESENT ILLNESS Carlos Mcgee, a 44 y.o. male presents to the ED with a Chief Complaint of Anxiety Subjective HPI Comments: 11:11 PM: 44 year old male with h/o depression, anxiety, and DM presents to ED c/o increasing anxiety. Stateshis mother last month. States he has also had chronic left neck pain that has not been alleviated with massages or a chiropractor appointment. He last took Xanax yesterday. He normally takes 2mg. Denies SI, HI, fever, CP, SOB, abd pain, any other complaints. History provided by: The patient Arrived by: Private vehicle Arrived from: Home REVIEW OF SYSTEMS Review of Systems Constitutional: Negative for fever and chills. HENT: Negative for congestion, ear pain, hearing loss, nosebleeds, sore throat and tinnitus. Eyes: Negative for photophobia, pain and visual disturbance. Respiratory: Negative for cough, chest tightness, shortness of breath and wheezing. Cardiovascular: Negative for chest pain, palpitations and leg swelling. Gastrointestinal: Negative for nausea, vomiting, abdominal pain, diarrhea and blood in stool. Genitourinary: Negative for dysuria, hematuria, flank pain, decreased urine volume and difficulty urinating. Musculoskeletal: Positive for neck pain. Negative for myalgias, back pain, arthralgias and gait problem. Skin: Negative for rash and wound. Neurological: Negative for dizziness, seizures, syncope, facial asymmetry, weakness and headaches. Psychiatric/Behavioral: Positive for behavioral problems. Negative for suicidal ideas, confusion, sleep disturbance, self-injury and agitation. The patient is nervous/anxious. All other systems [...] Home Medications ALBUTEROL 90 MCG/ACTUATION HFA INHALER CYCLOBENZAPRINE (FLEXERIL) 5 MG TABLET FLUTICASONE (FLONASE) 50 MCG/SPRAY BOTH NOSTRIL SPSN IBUPROFEN (MOTRIN) 800 MG TABLET OMEPRAZOLE (PRILOSEC) 40 MG CAPSULE, DELAYED RELEASE(E.C.) ONDANSETRON (ZOFRAN ODT) 4 MG TABLET, RAPID DISSOLVE PROMETHAZINE (PHENERGAN) 25 MG ORAL TABLET Medications Modified during this Encounter Medications Discontinued during this Encounter ALPRAZOLAM (XANAX) 2 MG ORAL TABLET Objective PHYSICAL EXAM INITIAL VS BP: 148/91 mmHg (01/07/152202), Heart Rate (Monitored): 89 bpm (01/07/152202), Resp: 20 (), Temp: 97.5 ??F (36.4 ??C) (01/07/152202), Temp src: Oral (01/07/152202), SpO2: 99 % (01/07/152202), Height: 6' 2 (188 cm) (01/07/152202), Weight: 120.203 kg (01/07/152202), BMI (Calculated): 34.1 (01/07/152202) No LMP for male patient. Physical Exam [...] Nursing note and vitals reviewed. DIAGNOSTICS LAB: Results for orders placed during the hospital encounter of 01/07/15 (from the past 24 hour(s)) CBC WITH DIFFERENTIAL Result Value Ref Range WBC 5.7 4.0-9.8 K/uL RBC 5.69 (*) 3.90-4.90 M/uL HEMOGLOBIN 12.6 (*) 13.6-16.5 g/dL HEMATOCRIT 40.1 40.0-48.0 % MCV 70.5 (*) 82.0-99.0 fL MCH 22.1 (*) 27.2-32.6 pg MCHC 31.4 30.0-36.0 g/dL RDW 16.7 (*) 11.5-14.5 % RDW-STDEV 42.0 37.1-48.7 fL PLATELETS 178 140-350 K/uL MPV 9.2 (*) 9.3-12.4 fL NEUTROPHILS 68 45-70 % LYMPHOCYTES 24 16-45 % MONOCYTES 6 3-13 % EOSINOPHILS 1 <7 % BASOPHILS 0 <3 % NEUTROPHIL ABSOLUTE 3.86 1.90-7.00 K/uL LYMPHOCYTE ABSOLUTE 1.38 0.70-4.50 K/uL MONOCYTE ABSOLUTE 0.36 0.10-1.30 K/uL EOSINOPHIL ABSOLUTE 0.06 <0.70 K/uL BASOPHILS ABSOLUTE 0.02 <0.30 K/uL COMPREHENSIVE METABOLIC PANEL Result Value Ref Range SODIUM 142 136-145 mmol/L POTASSIUM 3.5 3.5-5.0 mmol/L CHLORIDE 103 98-107 mmol/L CO2 27 22-29 mmol/L CALCIUM 9.3 8.6-10.2 mg/dL BUN 7 6-20 mg/dL CREATININE 0.80 0.67-1.17 mg/dL GLUCOSE 123 (*) 79-99 mg/dL TOTAL PROTEIN 7.8 6.7-8.6 g/dL ALBUMIN 4.3 3.5-5.2 g/dL BILIRUBIN TOTAL 0.9 0.3-1.2 mg/dL ALKALINE PHOSPHATASE 75 40-129 U/L AST 44 (*) <41 U/L ALT 53 (*) <42 U/L GFR >60 >=60 mL/min/1.73 sq meter GFR, >60 >=60 mL/min/1.73 sq meter ANION GAP 12 8-16 mmol/L CARDIAC ENZYMES Result Value Ref Range TROPONIN T <0.01 <0.04 ng/mL RADIOLOGY: XR CHEST PA AND LATERAL (Results Pending) IMPRESSION: No acute abnormality. Dictated from Location [address] [place] [address] EKG: PROCEDURES Procedures MEDICAL DECISION MAKING AND PLAN OF CARE REEVALUATION 1:06 AM: rechecked patient who states he feels much better after Xanax. I told him about the plan to discharge and f/u with PCP, cardiology, and psychiatrist. He agrees to the plan and all questions addressed. ED provider and ED nurse verbally discussed patient plan of care at this time. CASE DISCUSSED 1:06 AM: Intake evaluated patient in ED and spoke to psychiatrist. They agree patient is stable forIOP. Medications Administered During the ED Stay from 01/07/20152154 to 01/08/2015 0135 Date/Time Order Dose Route Action 01/07/20153 aspirin (JONA CHEWABLE) chew tablet 324 mg 324 mg Oral Given 01/08/2015 0022 ALPRAZolam (XANAX) tablet 2 mg 2 mg Oral Given . New Prescriptions for this Encounter ALPRAZOLAM (XANAX) 2 MG TABLET Take 1 Tab (2 mg) by mouth 3 times daily as needed for Anxiety. HYDROCODONE-ACETAMINOPHEN (NORCO) 5-325 MG TABLET Take 1 Tab by mouth every 4 hours as needed for Pain, Moderate. Max Daily Amount: 6 Tabs LAST VS BP: 137/76 mmHg (01/07/152299), Heart Rate (Monitored): 81 bpm (01/07/152299), Resp: 20 (), Temp: 97.5 ??F (36.4 ??C) (01/07/152202), Temp src: Oral (01/07/152202), SpO2: 98 % (01/07/152299) CLINICAL IMPRESSION Final diagnoses: [300.00] Anxiety (Primary) [723.1] Neck pain [786.50] Chest pain, unspecified chest pain type CODING MDM Coding Reviewed: previous chart and vitals Reviewed previous: labs Interpretation: SP02, labs, ECG and x-ray I have reviewed nursing notes and agree unless otherwise mentioned. Consults: psychiatry DISPOSITION, EDUCATION AND MEDICATION RECONCILIATION Medications reconciled. See after visit summary for patient education on discharged patients. Follow up: [facility], Physician Referral Line [phone] Call in 2 days Memo Mallory MD [address] [facility] [address] [facility] [address] Call in 2 days As needed, If symptoms worsen DISCHARGED TO HOME. This note has been prepared by Miguel Hwang acting as a scribe for Dr. Malcolm Gauthier on 01/07/2015 at1:06 AM:. The scribe's documentation has been prepared under my direction and personally reviewed by me, Ian Gauthier, in its entirety on 01/08/2015 at 1:35 AM. I confirm that the note above accurately reflects all work, treatment, procedures, and medical decision making performed by me. * Ayah Martins RN - 01/07/2015 10:57 PM CDT pt to eD states that he recently lost his mother and has been having difficulty with anxiety. pt states that he feels shaky all over with occasional episodes of CP and SOB. pt states that he was evaluated at OSH last week for the same CP and discharged. pt has been sleeping more than normal and states that he is on edge Pt changed into gown and placed on cardiac, NBP, and O2 monitors. VSS at this time. Pt appears in NAD with RR even and unlabored. Pt agreeable to speak with the counselor from intake about referrals for a new therapist/phsychiatrist. * Ignacia Durand RN - 01/07/2015 10:14 PM CDT Emergency Department Adult Chest Pain Protocol [facility] (Any patient 30 years of age or older with a chief complaint of non-traumatic chest pain) ORDERS ARE ENTERED ???PER PROTOCOL?? Nursing Orders: o Undress and place in gown o Apply cardiac and pulse oximetry monitors o Print rhythm strip o Insert peripheral IV o Keep NPO Laboratory Orders: o CBC with diff ([id number]) o CMP (LAB17) o Cardiac Enzymes ([id number]) o ED HOLD ([id number]); to include blue tube Diagnostic Test Orders: o Obtain STAT 12 Lead ECG (EKG1). Be sure to include indication. o PA and Lateral CXR ([id number]). Be sure to enter indication in Epic. Medication Orders: o Sodium chloride 0.9% (normal saline) flush 3 mLs every 8 hours o Sodium chloride 0.9% (normal saline) flush 3 mLs PRN for saline lock or medication administration. o Aspirin 324mg chewable (81mg tablets x 4) PO, one time only, unless: Taken prior to arrival Coumadin therapy Allergy to aspirin Active bleeding Other o Oxygen at 2L/min nasal cannula to keep oxygen saturations greater than 90% Additional Instructions: If Aspirin not administered, document why not. Initiating Department(s): Adult Emergency Department Reviewed: 09/26, 03/26, 08/26 Revised: 11/27/12, 09/26, 03/26, 08/26 Revised by: Allie Baker RN, MSN, [facility] Nurse [employer] Sewing Machine Operator Approved by: Medical Executive Committee, Nursing, Pharmacy & Therapeutics Date: 09-28-13 documented in this encounter Plan of Treatment Not on file documented as of this encounter Procedures Procedure Name Priority Date/Time Associated Diagnosis Comments XR CHEST PA AND LATERAL 2 VW Stat 01/07/2015 11:27 PM CDT EKG 12-LEAD Stat 01/07/2015 10:38 PM CDT EXTRA TUBE Stat 01/07/2015 10:31 PM CDT EXTRA TUBE (URINE CONTAINER) Stat 01/07/2015 10:31 PM CDT EXTRA TUBE (BLUE) Stat 01/07/2015 10: 30 PM CDT EXTRA TUBE Stat 01/07/2015 10:30 PM CDT EXTRA TUBE Stat 01/07/2015 10:30 PM CDT EXTRA TUBE (BORGES) Stat 01/07/2015 10: 30 PM CDT EXTRA TUBE (GREEN NO GEL) Stat 01/07/2015 10:30 PM CDT CARDIAC ENZYMES Stat 01/07/2015 10:30 PM CDT CBC WITH DIFFERENTIAL Stat 01/07/2015 10:30 PM CDT COMPREHENSIVE METABOLIC PANEL Stat 01/07/2015 10:30 PM CDT documented in this encounter Results * XR CHEST PA AND LATERAL (01/07/2015 11:27 PM CDT) Anatomical Region Laterality Modality Chest Computed Radiogr aphy 01/07/2015 11:2 0 PM CDT Impressions 01/08/2015 10:41 PM CDT IMPRESSION: No acute abnormality. Dictated from Location 1 - [facility] Narrative 01/08/2015 10:41 PM CDT CHEST PA AND LATERAL, 01/07/2015 INDICATION: Chest pain COMPARISON: 08/28/2014 FINDINGS: ??The lungs are clear. No acute infiltrate, pleural effusion, pneumothorax, or pulmonary edema is present. The cardiomediastinal silhouette is normal. No acute osseous abnormalities are seen. Ian Gauthier DO DIAGNOSTIC IMAGING O RDERABLES * EKG 12-LEAD (01/07/2015 10:38 PM CDT) 01/07/2015 10:3 8 PM CDT Narrative INTERFACE SYSTEM - 01/08/2015 8:11 AM CDT ? Stationary ECG Study ? [facility] ? Test Date: ?01/07/2015 10:38:22 PM ? Pat Name: ? Vincent Corpus ? Department: ?? 27 ?Room: ? Gender: ? M ?Case Checker: ?? henggw ? : ?1970 ? Requested by: ? Order Number: [id number] ?Reading MD: ?? Henry Barboza ? Intervals ?[place] ? Rate: ? 81 ? P: ?12 ? IL: ? 156 ?QRS: ?36 ? QRSD: ? 101 ?T: ?7 ? QT: ? 347 ? QTc: ?384 ? Interpretive Statements SINUS RHYTHM Compared to ECG 11/10/2014 06:37:52 T-wave abnormality no longer present Electronically Signed On 01-08-15 08:11:03 CDT by Henry Barboza Procedure Note Provider, Historical - 01/08/2015 Stationary [facility] Test Date: 01/07/2015 10:38:22 PM Pat Name: Carlos Mcgee Department: 27 Room: Gender: M Case Checker: lexis : 1970 Requested by: Order Number: [id number] Elsa MD: Henry Barboza Intervals [place] Rate: 81 P: 12 IL: 156 QRS: 36 QRSD: 101 T: 7 QT: 347 QTc: 384 Interpretive Statements SINUS RHYTHM Compared to ECG 11/10/2014 06:37:52 T-wave abnormality no longer present Electronically Signed On 01-08-15 08:11:03 CDT by Henry Barboza Ian Lobobren NEGRON ECG ORDERABLES INTERFACE SYSTEM Refer to clinic/hospital department * EXTRA TUBE (URINE CONTAINER) (01/07/2015 10:31 PM CDT) Urine Collection / Unknown 01/07/2015 10:31 PM CDT 01/07/2015 10:31 PM CDT Protocol [facility] Emergency URINE ORDERA BLES Performing Organization Address City/[facility] Co de Phone Number [facility] [employer] [facility] CLIA# [id number] [address] [place] [address] * EXTRA TUBE (BORGES) (01/07/2015 10:30 PM CDT) Blood Venipuncture - Floor Collect / Unknown 01/07/2015 10:30 PM CDT 01/07/2015 10:40 PM CDT Protocol [facility] Emergency CHEMISTRY OR DERABLES Performing Organization Address [facility] Co de Phone Number [facility] [employer] [facility] CLIA# [id number] [address] [place] [address] * EXTRA TUBE (GREEN NO GEL) (01/07/2015 10:30 PM CDT) Blood Venipuncture - Floor Collect / Unknown 01/07/2015 10:30 PM CDT 01/07/2015 10:40 PM CDT Protocol [facility] CHEMISTRY OR DERABLES Performing Organization Address [facility] Co de Phone Number [facility] [employer] [facility] CLIA# [id number] [address] [place] [address] * EXTRA TUBE (BLUE) (01/07/2015 10:30 PM CDT) Blood Venipuncture - Floor Collect / Unknown 01/07/2015 10:30 PM CDT 01/07/2015 10:40 PM CDT Protocol [facility] HEMATOLOGY O RDERABLES [facility] LAYA# [id number] [address] [place] [address] * CARDIAC ENZYMES (01/07/2015 10:30 PM CDT) TROPONIN T <0.01 <0.04 ng/mL 01/07/2015 11:21 PM CDT [facility] Blood Venipuncture - Floor Collect / Unknown 01/07/2015 10:30 PM CDT 01/07/2015 10:40 PM CDT Ian Gauthier DO CHEMISTRY ORDERABLES Performing Organization Address City/[facility]/ZIP Co de Phone Number [facility] [id number] [address] [place] [address] * (ABNORMAL) COMPREHENSIVE METABOLIC PANEL (01/07/2015 10:30 PM CDT) SODIUM 142 136 - 145 mmol/L 01/07/2015 11:21 PM CDT [facility] - . [facility] POTASSIUM 3.5 3.5 - 5.0 mmol/L 01/07/2015 11:21 PM CDT [facility] - [facility] CHLORIDE 103 98 - 107 mmol/L 01/07/2015 11:21 PM CDT [facility] CO2 27 22 - 29 mmol/L 01/07/2015 11:21 PM CDT [facility] - [facility] CALCIUM 9.3 8.6 - 10.2 mg/dL 01/07/2015 11:21 PM CDT [facility] - [facility] BUN 7 6 - 20 mg/dL 01/07/2015 11:21 PM CDT [facility] - [facility] CREATININE 0.80 0.67 - 1.17 mg/dL 01/07/2015 11:21 PM CDT [facility] GLUCOSE 123(H) 79 - 99 mg/dL 01/07/2015 11:21 PM T [facility] SERVICES - . [facility] TOTAL PROTEIN 7.8 6.7 - 8.6 g/dL 01/07/2015 11:21 PM T [facility] - [facility] ALBUMIN 4.3 3.5 - 5.2 g/dL 01/07/2015 11:21 PM T [facility] - . [facility] BILIRUBIN TOTAL 0.9 0.3 - 1.2 mg/dL 01/07/2015 11:21 PM T [facility] - . [facility] ALKALINE PHOSPHATASE 75 40 - 129 U/L 01/07/2015 11:21 PM T [facility] AST 44(H) <41 U/L 01/07/2015 11:21 PM [facility] ALT 53(H) <42 U/L 01/07/2015 11:21 PM [facility] GFR >60 >=60 mL/min/1.7 3 sq meter 01/07/2015 11:21 PM T [facility] - [facility] Comment: eGFR has not been [...] GFR, >60 >=60 mL/min/1.7 3 sq meter 01/07/2015 11:21 PM T [facility] - [facility] ANION GAP 12 8 - 16 mmol/L 01/07/2015 11:21 PM T [facility] - . [facility] Blood Venipuncture - Floor Collect / Unknown 01/07/2015 10:30 PM CDT 01/07/2015 10:40 PM CDT Ina Gauthier DO CHEMISTRY ORDERABLES [facility] [employer] [facility] CLIA# [id number] [address] [place] [address] * (ABNORMAL) CBC WITH DIFFERENTIAL (01/07/2015 10:30 PM CDT) [facility] WBC 5.7 4.0 - 9.8 K/uL 01/07/2015 11:00 PM CDT [facility] - . [facility] RBC 5.69(H) 3.90 - 4.90 M/uL 01/07/2015 11:00 PM CDT [facility] - . [facility] HEMOGLOBIN 12.6(L) 13.6 - 16.5 g/dL 01/07/2015 11:00 PM CDT [facility] - . [facility] HEMATOCRIT 40.1 40.0 - 48.0 % 01/07/2015 11:00 PM CDT [facility] - . [facility] MCV 70.5(L) 82.0 - 99.0 fL 01/07/2015 11:00 PM CDT [facility] - . [facility] MCH 22.1(L) 27.2 - 32.6 pg 01/07/2015 11:00 PM CDT [facility] - [facility] MCHC 31.4 30.0 - 36.0 g/dL 01/07/2015 11:00 PM CDT [facility] - . [facility] RDW 16.7(H) 11.5 - 14.5 % 01/07/2015 11:00 PM CDT [facility] - [facility] RDW-STDEV 42.0 37.1 - 48.7 fL 01/07/2015 11:00 PM CDT [facility] PLATELETS 178 140 - 350 K/uL 01/07/2015 11:00 PM CDT [facility] MPV 9.2(L) 9.3 - 12.4 fL 01/07/2015 11:00 PM CDT [facility] NEUTROPHILS 68 45 - 70 % 01/07/2015 11:00 PM CDT [facility] LYMPHOCYTES 24 16 - 45 % 01/07/2015 11:00 PM CDT [facility] MONOCYTES 6 3 - 13 % 01/07/2015 11:00 PM CDT [facility] EOSINOPHILS 1 <7 % 01/07/2015 11:00 PM CDT [facility] - [facility] BASOPHILS 0 <3 % 01/07/2015 11:00 PM CDT [facility] - [facility] NEUTROPHIL ABSOLUTE 3.86 1.90 - 7.00 K/uL 01/07/2015 11:00 PM CDT [facility] - [facility] LYMPHOCYTE ABSOLUTE 1.38 0.70 - 4.50 K/uL 01/07/2015 11:00 PM CDT [facility] - [facility] MONOCYTE ABSOLUTE 0.36 0.10 - 1.30 K/uL 01/07/2015 11:00 PM CDT [facility] - [facility] EOSINOPHIL ABSOLUTE 0.06 <0.70 K/uL 01/07/2015 11:00 PM CDT [facility] - [facility] BASOPHILS ABSOLUTE 0.02 <0.30 K/uL 01/07/2015 11:00 PM CDT [facility] - [facility] Blood Venipuncture - Floor Collect / Unknown 01/07/2015 10:30 PM CDT 01/07/2015 10:40 PM CDT Ian Gauthier DO HEMATOLOGY ORDERABLE S [facility] SERVICES [facility]# [id number] [address] [facility] [place] [address] documented in this encounter Visit Diagnoses Diagnosis Anxiety- Primary Anxiety state, unspecified Anxiety Anxiety state, unspecified Neck pain Cervicalgia Chest pain, unspecified chest pain type Neck pain Cervicalgia Chest pain Chest pain, unspecified documented in this encounter Administered Medications Inactive Administered Medications - up to 3 most recent administrations Medication Order MAR Action Action Date Dose Rate Site ALPRAZolam (XANAX) tablet 2 mg 2 mg, Oral, ONE TIME ONLY, 1 dose, On Wed01/08/15 at 0015, Routine Given 01/08/2015 12:22 AM CDT 2 mg aspirin (JONA CHEWABLE) chew tablet 324 mg 324 mg, Oral, ONE TIME ONLY, 1 dose, On Wed01/07/15 at 2215, Routine Given 01/07/2015 10:33 PM CDT 324 mg documented in this encounter Active and Recently Administered Medications Times are shown in CDT. Scheduled Medication Order 01/06/2015 01/07/2015 01/08/2015 ALPRAZolam (XANAX) tablet 2 mg (COMPLETED) 2 mg, Oral, ONE TIME ONLY, 1 dose, On Wed01/08/15 at 0015, Routine 0022 (Given - Provid er: Alexandria Smith RN) aspirin (JONA CHEWABLE) chew tablet 324 mg (COMPLETED) 324 mg, Oral, ONE TIME ONLY, 1 dose, On Wed01/07/15 at 2215, Routine 2233 (Given - Provider: Ignacia Durand RN) documented in this encounter
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
--- OUTSIDE RECORDS SUMMARY | 2024-09-10 04:21 | XMS_ITS | Encounter Summary ---
Author Organization [facility] Address [address] [place] [address] Care Team Providers Care Jr. Systems Administrator Name Role Phone Unavailable Primary Care Provider Unavailabl e Reason for Visit * Reason Comments Panic Attack Pt arrived to the ED with c/o panic attacks, abdominal pain that started 4 days ago and sinus drainage. Pt sts These panic attacks are were I feel out of it Pt sts he was told He owed 450 dollar to his psychiatrist Pt denies any SI / HI Encounter Details Date Type Department Care Team (Late st Contact Info) Description 07/17/2016 11:30 AM CDT - 07/17/2016 1:42 PM CDT Emergency [facility] Emergency Department [address] [place] [address] Ryland Virgen MD [address] [place] [address] Tramaine Craft MD NO ADDRESS ON FILE Anxiety state (Primary Dx); Generalized abdominal pain; Sinus drainage Discharge Disposition: Home or Self Care Social [...] Sign Reading Time Taken Comments Blood Pressure 131/81 07/17/2016 1:00 PM CDT Pulse 66 07/17/2016 1:00 PM CDT Temperature 36.9 ??C (98.5 ??F) 07/17/2016 11:25 AM C DT Respiratory Rate 18 07/17/2016 11:25 AM CDT Oxygen Saturation 98% 07/17/2016 1:00 PM CDT Inhaled Oxygen Concentration - - Weight 119.3 kg (263 lb) 07/17/2016 11:25 AM CDT Height 188 cm (6' 2 ) 07/17/2016 11:25 AM CDT Body Mass Index 33.77 07/17/2016 11:25 AM CDT documented in this encounter Discharge Instructions * Attachments The following attachments cannot be sent through Care Everywhere. * ABDOMINAL PAIN (GUATEMALAN) * ANXIETY DISORDER (GUATEMALAN) documented in this encounter Medications at Time [...] times daily. 20 Tablet None 07/17/2016 10/04/2016 metroNIDAZOLE (FLAGYL) 500 mg tablet Take 1 Tablet (500 mg) by mouth 3 times daily. 30 Tablet None 07/17/2016 08/18/2016 ALPRAZolam (XANAX) 1 mg tablet Take 1 Tablet (1 mg) by mouth nightly as needed for Anxiety. 20 Tablet 0 06/11/2016 08/18/2016 acetaminophen (TYLENOL) 325 mg tablet Take 650 mg by mouth nightly as needed . 10/30/2016 documented as of this encounter ED Notes * Chacha Crouch RN - 07/17/2016 1:42 PM CDT Dc home, verbalizes understanding of dc instructions * Tramaine Craft MD - 07/17/2016 12:50 PM CDT HISTORY OF PRESENT ILLNESS Carlos Mcgee, a 46 y.o. male presents to the ED with a Chief Complaint of Panic Attack Subjective HPI Comments: Primary Care Doctor: No primary care provider on file. Documented Triage Chief Complaint: Panic Attack Carlos Mcgee is a 46 y.o. male who presents with worsening anxiety onset 4 days ago as a resultof being homeless and having no family for support. The patient also c/o sinus infection with drainage for the past 4 day (for which he was prescribed Augmentin), epigastric abdominal pain, pain in colon area, dizziness, HAs for the past month, fever (Tmax 101F), watery diarrhea, frequent urination, and sweaty feet. The patient took TUMS with no relief. The patient denies SI/HI or tarry stool. He is currently prescribed Prilosec, Celexa, and Phenergan (nausea). Patient has no known allergies to IV contrast and Levaquin. Severity: mild Duration: see above Quality: see above Radiation: none Associated symptoms: look above Additional History Was Obtained From: The pt The pt's medical records: I reviewed the patient's previous visit hx, medication, past medical history and allergies. History/Exam limitations: None Summary of the patient's past visits and history: The patient had a recent ED visit on 06/11/16 for anxiety and chest discomfort, for which he was prescribed Xanax. Patient also visited ED on 01/31/16 for the same chief complaints. On both the 06/11/16 and 01/31/16 visits, the patient noted running out of Xanax before the designated refill date. Review of history reveals multiple visits to multiplehospitals for chest pain and anxiety. History provided by: The patient Arrived by: Private vehicle Arrived from: Home General Severity: Mild Onset quality: Gradual Duration: 4 days Timing: Constant Chronicity: Recurrent Context: Worsening panic attacks, sinus infection and drainage Ineffective treatments: Antacid pills Associated symptoms: abdominal pain (epigastric), diarrhea ( watery ), fever (Tmax 101 F) and headaches Associated symptoms: no chest pain, no cough, no ear pain, no fatigue, no nausea, no rash, no shortness of breath and no vomiting REVIEW OF SYSTEMS Review of Systems Constitutional: Positive for fever (Tmax 101 F) and diaphoresis ( feet bilaterally). Negative for fatigue. HENT: Negative for ear pain. + sinus infection with drainage Respiratory: Negative for cough, chest tightness and shortness of breath. Cardiovascular: Negative for chest pain and leg swelling. Gastrointestinal: Positive for abdominal pain (epigastric), diarrhea ( watery ) and rectal pain. Negative for nausea and vomiting. - tarry stool Genitourinary: Positive for frequency. Negative for dysuria. Musculoskeletal: Negative for back pain, neck pain and neck stiffness. Skin: Negative for rash. Neurological: Positive for dizziness and headaches. Psychiatric/Behavioral: Negative for suicidal ideas and self-injury. The patient is nervous/anxious. All other systems reviewed and are negative. PAST MEDICAL HISTORY REVIEWED MEDICAL: Patient has a past medical history of Depression (anxiety); Anxiety; Panic attacks; Diverticulitis;Diabetes; HTN (hypertension); Chronic neck pain; and PTSD (post-traumatic stress disorder). SURGICAL: Patient has past surgical history that [...] Levaquin; Lidocaine; Lisinopril; Morphine; Paxil; Pepcid; Percocet; Sulfa (sulfonamide antibiotics); and Uroseptic ds HOME MEDICATIONS Discharge Medication List as of 07/17/2016 1:33 PM START taking these medications Details promethazine (PHENERGAN) 25 mg tablet Take 1 Tablet (25 mg) by mouth every 6 hours as needed for Nausea., Disp-30 Tablet, R-None ciprofloxacin HCl (CIPRO) 500 mg tablet Take 1 Tablet (500 mg) by mouth 2 times daily., Disp-20 Tablet, R-None metroNIDAZOLE (FLAGYL) 500 mg tablet Take 1 Tablet (500 mg) by mouth 3 times daily., Disp-30 Tablet, R-None CONTINUE these medications which have CHANGED Details omeprazole (PriLOSEC) 40 mg Capsule, Delayed Release(E.C.) Take 1 Capsule (40 mg) by mouth daily., Disp-30 Capsule, R-None CONTINUE these medications which have NOT CHANGED Details ALPRAZolam (XANAX) 1 mg tablet Take 1 Tablet (1 mg) by mouth nightly as needed for Anxiety., Disp-20 Tablet, R-0 meclizine (ANTIVERT) 25 mg tablet Take 25 mg by mouth 2 times daily as needed for Dizziness. atenolol (TENORMIN) 100 mg tablet Take 0.5 Tablet (50 mg) by mouth 2 times daily., Disp-10 Tablet, R-0 albuterol 90 mcg/Actuation HFA inhaler Take 2 Puffs by inhalation every 6 hours as needed for Shortness of Breath. verapamil (CALAN) 40 mg Tablet Take 1 Tablet (40 mg) by mouth every 12 hours., Disp-30 Tablet, R-0 ranitidine (ZANTAC) 150 mg tablet Take 150 mg by mouth daily. acetaminophen (TYLENOL) 325 mg tablet Take 650 mg by mouth nightly as needed . Objective PHYSICAL EXAM INITIAL VS BP: 131/80 mmHg (07/17/161124), Heart Rate: 66 bpm (07/17/161124), Resp: 18 (07/17/161124), Temp: 98.5 ??F (36.9 ??C) (07/17/161124), Temp src: Oral (07/17/161124), SpO2: 100 % (07/17/161124), Height: 6' 2 (188 cm) (07/17/161124), Weight: 119.296 kg (263 lb) (07/17/161124), BMI (Calculated): 33.84 (07/17/161124) No LMP for male patient. Physical Exam Constitutional: He is oriented to person, place, and time. He appears well- developed and well-nourished. No distress. HENT: Head: Normocephalic and atraumatic. Right Ear: External ear normal. Left Ear: External ear normal. Nose: Nose normal. Mouth/Throat: No oropharyngeal exudate. Eyes: EOM are normal. Pupils are equal, round, and reactive to light. Neck: Normal range of motion. Neck supple. Cardiovascular: Normal rate, normal heart sounds and intact distal pulses. Pulmonary/Chest: Effort normal and breath sounds normal. No respiratory distress. Abdominal: Soft. Bowel sounds are normal. There is tenderness (mild) in the epigastric area. There is no rebound and no guarding. Musculoskeletal: Normal range of motion. He exhibits no edema or tenderness. Neurological: He is alert and oriented to person, place, and time. Skin: Skin is warm and dry. He is not diaphoretic. Psychiatric: He has a normal mood and affect. His behavior is normal. Judgment and thought content normal. His mood appears not anxious. Nursing note and vitals reviewed. DIAGNOSTICS LAB: Labs this ED Encounter POC GLUCOSE - Normal POC GLUCOSE 94 RADIOLOGY: No orders to display PROCEDURES Procedures MEDICAL DECISION MAKING AND PLAN OF CARE REEVALUATION 1:06 PM: Upon initial evaluation, patient will be discharged home with Rx for Phenergan, Cipro, andFlagyl. Recommended setting up appointment through [facility] Referral Line. RTER with worsening sx. Pt understands and agrees with the plan. All questions and concerns addressed. The patient is stable for discharge. ED provider and ED nurse verbally discussed patient plan of care at this time. Differential Dx: After my initial exam, I considered the following differential dx: sinusitis, diverticulitis, anxiety, gastritis Studies and Interpretation Pulse Oximetry Interpretation (independent interpretation by Talat Craft MD): Saturation:SpO2: 98 % (07/17/16 1300)] Oxygen Delivery: Room Air Interpretation: No hypoxia at this time Labs: (all labs were Independently reviewed by Talat Craft MD) Amount and/or Complexity of Data Reviewed --Triage notes and available nursing notes reviewed. I agree with the nursing notes reviewed unlessnoted in the body of this record. --All clinical lab tests ordered were reviewed in detail: Yes --I have performed independent visualization of all images, tracings, or specimens (including EKGs)that were ordered on the patient: No --Previous electrocardiograms reviewed: No --Review and summarize past medical records: yes Medical Decision Making: I spent over 30 minutes in this patient's room dealing with his multiple different complaints. Not once to the patient mentioned to me was having chest pain. The patient complained of drainage from his sinuses. This has been a chronic issue. He has seen ENT by his doctor is an asshole and can't figure out what is wrong with him. He was scheduled to have a CT of his sinuses earlier in the week but he missed the appointment and has not rescheduled. I see no reason that he needs an emergent CT of his sinuses in the emergency department. The patient also complains of abdominal pain which is also a chronic issue. He has a history of diverticulitis although previous charts mention CTs that have been negative. I offered blood work and a CT of his abdomen but the patient declines. The patient also tells me he has anxiety. He does not appear anxious. He tells me he is out of his Xanax. This isthe third visit that the patient has been out of his Xanax to this emergency department. A visit inMay indicated he was out of Xanax early. The patient has a psychiatrist but tells me he cannot get in to see him because his doctor is an asshole and will not see him. I offered to give him a referral to a new psychiatrist but he declines. I declined to refill his Xanax which he was not happy with. He does not appear to be in acute benzodiazepine withdrawal. The patient [facility] me [facility] but he is unhappy with the physicians and conditions there as well. He tells me he is homeless. I offered to have a hospital social worker come talk with him regarding his homelessnessas well as primary care follow-up. The patient is uninterested in that. I offered to have a counselor come talk with him about his anxiety but he declines. He is not suicidal or homicidal. The patient is refusing all testing with the exception of POC glucose. I wrote the patient prescriptions for some of his home medications including his chronic nausea medicine, Prilosec as well as Cipro and Flagyl for questionable diverticulitis. Stressed follow up and to return if worse. The patient was not happy with his visit however he declined all of the treatment options that I offered him. In my opinion he does not appear to be suffering from an emergent medical condition with the exception of his abdominal pain. His abdominal exam is not impressive. Regardless he is refusinga workup. The patient was also advised to call his ENT and schedule a follow-up visit for his sinus issues and to reschedule his CT Note: This H+P was created with the aid of dictation software, thus there may be some word substitutions or errors. I reviewed and interpreted all of the diagnostic tests ordered on the patient. The results of thesetests were discussed with the patient in detail and all questions were answered to the patient's apparent satisfaction. Discharge Medication List as of 07/17/2016 1:33 PM START taking these medications Details promethazine (PHENERGAN) 25 mg tablet Take 1 Tablet (25 mg) by mouth every 6 hours as needed for Nausea., Disp-30 Tablet, R-None ciprofloxacin HCl (CIPRO) 500 mg tablet Take 1 Tablet (500 mg) by mouth 2 times daily., Disp-20 Tablet, R-None metroNIDAZOLE (FLAGYL) 500 mg tablet Take 1 Tablet (500 mg) by mouth 3 times daily., Disp-30 Tablet, R-None CONTINUE these medications which have CHANGED Details omeprazole (PriLOSEC) 40 mg Capsule, Delayed Release(E.C.) Take 1 Capsule (40 mg) by mouth daily., Disp-30 Capsule, R-None CONTINUE these medications which have NOT CHANGED Details ALPRAZolam (XANAX) 1 mg tablet Take 1 Tablet (1 mg) by mouth nightly as needed for Anxiety., Disp-20 Tablet, R-0 meclizine (ANTIVERT) 25 mg tablet Take 25 mg by mouth 2 times daily as needed for Dizziness. atenolol (TENORMIN) 100 mg tablet Take 0.5 Tablet (50 mg) by mouth 2 times daily., Disp-10 Tablet, R-0 albuterol 90 mcg/Actuation HFA inhaler Take 2 Puffs by inhalation every 6 hours as needed for Shortness of Breath. verapamil (CALAN) 40 mg Tablet Take 1 Tablet (40 mg) by mouth every 12 hours., Disp-30 Tablet, R-0 ranitidine (ZANTAC) 150 mg tablet Take 150 mg by mouth daily. acetaminophen (TYLENOL) 325 mg tablet Take 650 mg by mouth nightly as needed . LAST VS BP: 131/81 mmHg (07/17/16 1300), Heart Rate: 67 bpm (07/17/16 1300), Resp: 18 (07/17/16 112), Temp: 98.5 ??F (36.9 ??C) (07/17/16 112), Temp src: Oral (07/17/161124), SpO2: 98 % (07/17/16 1300) CLINICAL IMPRESSION Final diagnoses: [F41.1] Anxiety state (Primary) [R10.84] Generalized abdominal pain [J34.89] Sinus drainage CODING MDM Coding Reviewed: previous chart, nursing note and vitals Reviewed previous: labs Interpretation: SP02 and labs I have reviewed nursing notes and agree unless otherwise mentioned. DISPOSITION, EDUCATION AND MEDICATION RECONCILIATION Medications reconciled. See after visit summary for patient education on discharged patients. Follow up: [facility], PHYSICIAN REFERRAL LINE [phone] Call in 1 day DISCHARGED HOME IN STABLE CONDITION. ATTESTATION STATEMENTS This note has been prepared by Jennie Estrada and Connie Person acting as scribes for Dr. Talat Craft on 07/17/2016 at 1:59 PM. The scribe's documentation has been prepared under my direction and personally reviewed by me, Tramaine Craft MD, in its entirety on 07/17/2016 at 2:34 PM. I confirm that the note above accurately reflects all work, treatment, procedures, and medical decision making performed by me. * Chacha Crouch RN - 07/17/2016 12:42 PM CDT Received pt to ed from triage. Agree with triage note Pt arrived to the ED with c/o panic attacks,abdominal pain that started 4 days ago and sinus drainage. Pt sts These panic attacks are were I feel out of it Pt sts he was told He owed 450 dollar to his psychiatrist Pt denies any SI / HI Pt also complains of chest palpitations, Nausea and diaphoresis. Placed pt on ekg monitor tech, alerted md of pt arrival documented in this encounter Plan of Treatment Not on file documented as of this encounter Procedures Procedure Name Priority Date/Time Associated Diagnosis Comments POC GLUCOSE Stat 07/17/2016 1:37 PM CDT documented in this encounter Results * POC GLUCOSE (07/17/2016 1:37 PM CDT) GLUCOSE POC 94 79 - 99 mg/dL 07/17/2016 1:45 PM CDT [facility] [employer] [facility] Whole blood specimen (specimen) 07/17/2016 1:37 PM CDT 07/17/2016 1:45 PM CDT Tramaine Craft MD POINT OF CARE TESTING [facility] [employer] [facility]# [id number] [address] [place] [address] documented in this encounter Visit Diagnoses Diagnosis Anxiety state- Primary Anxiety state, unspecified Generalized abdominal pain Abdominal pain, generalized Sinus drainage Other diseases of nasal cavity and sinuses documented in this encounter
--- OUTSIDE RECORDS SUMMARY | 2024-09-10 04:21 | XMS_ITS | Encounter Summary ---
Author Organization [facility] Address [address] [place] [address] Care Team Providers Care Plate Stacker Name Role Phone Unavailable Primary Care Provider Unavailabl e Encounter Details Date Type Department Care Team (Late st Contact Info) Description 12/18/2015 Chart Note [facility] [address] [place] [address] Howard Trinidad MD NO ADDRESS [...] as of this encounter Progress Notes * Alisa Veras - 12/18/2015 4:14 PM CDT PT KEEPS CALLING BACK WANTING TO KNOW WHY WE HAVE DISCHARGED HIM A PATIENT. I EXPLAINED TO HIM THAT HE HAD CALLED THE AFTER HOURS EXCHANGE, AND YELLED AT HER ABOUT CALLING IN FLEXERI FOR HIM, WHEN SHE TOLD HIM THAT SHE COULD NOT WITHOUT DR AUTHORIZATION. HE TOLD HER SHE COULD, SHE KEPT EXPLAINING THAT SHE COULD BECAUSE IT WAS NOT A CONTROLLED SUBSTANCE. PT CONSTANTLY ARGUES HIS POINT AND KNOWWHAT HE NEEDS AND WANTS. HE HAS DONE THE SAME TO ME ON NUMEROUS OCCASSIONS. HE ALWAYS HAS A NEW QUESTION OR SYMPTOM EACH TIME YOU RETURN HIS CALL WITH AN ANSWER TO THE FIRST QUESTIONS. THE DR IS NEVER RIGHT. HE SAYS THAT [facility] JUST NEEDS TO ORDER THE REFERRALS HE WANTS BECAUSE HE KNOWS WHAT IS WRONG WITH HIM. I EXPLAINED THAT DR Martinez WANTED HIM TO SEE AN ORTHOPEDIC SURGEON FIRST, HE SAYS HE NEEDS A NEUROLOGIST. I KEPT TRYING TO EXPLAIN TO HIM THAT HIS HEADACHES MAY BE COMING FROM HIS NECK PAIN, AND THAT HE NEEDS TO COMPLY WITH WHAT THE DR ORDERS, NOT WHAT HE THINKS HE NEEDS. ALWAYS DISSATISFIED WITH EVERY ANSWER WE GIVE. ALWAYS A NEW ISSUE OR PROBLEM OR SYMPTOM. documented in this encounter Plan of Treatment Not on file documented as of this encounter Visit Diagnoses Not on filedocumented in this encounter
--- OUTSIDE RECORDS SUMMARY | 2024-09-10 04:21 | XMS_ITS | Encounter Summary ---
Author Organization [facility] Address [address] [place] [address] Care Team Providers Care [employer] Education Director Name Role Phone Unavailable Primary Care Provider Unavailabl e Reason for Referral * Eval and Treat (Routine) - Closed Specialty Diagnoses / Procedures Referred By Contac t Referred To Contact Physical Therapy Diagnoses Cervical stenosis of spinal canal Augusto Mabry MD [address] [facility] [address], [facility] [address] [place] [address] Referral ID Status Reason Start Date Expiration Date V isits Requested Visits Authorized [id number] Closed CRS To Schedule (STL) 08/28/2014 08/29/2015 6 6 ONAL INJURY LEGAL ASSISTANT Reason for Visit * Reason Comments Extremity Weakness multiple c/o, states told visual changes left eye on Wed, by opthamologist , also weakness left leg x 2 days, also anxiety, also arm pain * Auth/Cert - Closed Specialty Diagnoses / Procedures Referred By Contac t Referred To Contact Emergency Medicine [facility] Emergency Dept [address] [place] [address] Referral ID Status Reason Start Date Expiration Date Visits Re quested Visits Authorized [id number] Closed 1 1 Encounter Details Date Type Department Care Team (Late st Contact Info) Description 08/27/2014 10:45 PM PERSONAL INJURY LEGAL ASSISTANT - 08/28/2014 3:13 PM PERSONAL INJURY LEGAL ASSISTANT Emergency [facility] [address] [place] [address] Tramaine Craft MD NO ADDRESS ON FILE Ian Gauthier DO NO ADDRESS ON FILE Divina Cabral MD [address] [facility] [address] [place] [id number] Frederick DO Bertha [address] [facility] [place] [place] [address] Cervical stenosis of spinal canal Discharge Disposition: Home or Self Care Social [...] Sign Reading Time Taken Comments Blood Pressure 134/89 08/28/2014 11:55 AM PERSONAL INJURY LEGAL ASSISTANT Pulse 103 08/27/2014 10:29 PM PERSONAL INJURY LEGAL ASSISTANT Temperature 36.4 ??C (97.5 ??F) 08/28/2014 11:[address] Respiratory Rate 10 08/28/2014 11:55 AM PERSONAL INJURY LEGAL ASSISTANT Oxygen Saturation 96% 08/28/2014 11:55 AM PERSONAL INJURY LEGAL ASSISTANT Inhaled Oxygen Concentration - - Weight 117.9 kg (260 lb) 08/27/2014 10:29 PM PERSONAL INJURY LEGAL ASSISTANT Height 188 cm (6' 2 ) 08/27/2014 10:29 PM PERSONAL INJURY LEGAL ASSISTANT Body Mass Index 33.38 08/27/2014 10:29 PM PERSONAL INJURY LEGAL ASSISTANT documented in this encounter Discharge Summaries * Augusto Mabry MD - 08/28/2014 4:24 PM CST [facility] Adult Discharge Summary Carlos Mcgee 44 y.o. male 1970 CSN: [id number] Date of Admission: 08/27/2014 Date of Discharge: 08/28/2014 Discharging Physician: Augusto Mabry MD LOS: 1 day PCP: No primary provider on file. Activity: activity as tolerated. Dispo: home Diet: Diabetic diet Code Status at Discharge: FULL Wound Care: None needed 45 Minutes spent in the d/c process today. Admitting Dx and Chief Complaint Chief Complaint Patient presents with ??? Extremity Weakness multiple c/o, states told visual changes left eye on Wed, by opthamologist , also weakness left legx 2 days, also anxiety, also arm pain <principal problem not specified> Discharge Diagnoses and Relevant Hospital Course: Active Hospital Problems Diagnosis Date Noted ??? Cervical stenosis of spinal canal 08/28/2014 ??? Costochondral chest pain 08/28/2014 ??? Paresthesias with subjective weakness 08/28/2014 ??? PTSD (post-traumatic stress disorder) 08/28/2014 ??? GERD (gastroesophageal reflux disease) 08/28/2014 ??? Diabetes mellitus type 2, controlled, without complications 08/28/2014 ??? Blurry vision, bilateral 08/28/2014 Resolved Hospital Problems Diagnosis Date Noted Date Resolved No resolved problems to display. Pt presented with acute on chronic non-specific symptoms including left-sided CP, LUE paresthesias/subjective weakness, blurry vision, subjective weakness of BLE. He had a negative cardiac workup including exercise stress echo, etiology most likely costochondritis. Stroke workup was negative including CT/MRI brain. CT c-spine demonstrated C5-C6 spinal stenosis. NSGY evaluated pt and recommended outpatient PT and MRI w/o contrast of c-spine. Pt was discharged with pain medication, muscle relaxers, PT referral, and list of [facility] PCPs. Discharge medications and new prescriptions: Current Discharge Medication List START taking these medications cyclobenzaprine 5 mg Tablet Commonly known as: FLEXERIL Take 1 Tab by mouth 3 times daily as needed for Pain or Spasm. Provider: Augusto Mabry Quantity: 30 Tab Refills: 0 HYDROcodone-acetaminophen 5-325 mg tablet Commonly known as: NORCO Take 1 Tab by mouth every 4 hours as needed for Pain, Moderate. Provider: Bertha Mack Quantity: 20 Tab Refills: 0 CONTINUE taking these medications albuterol 90 mcg/Actuation HFA inhaler Take 2 Puffs by inhalation every 6 hours as needed for Shortness of Breath. Refills: 0 fluticasone 50 mcg/spray [place], Suspension Commonly known as: FLONASE Administer 2 Sprays in each nostril daily. Refills: 0 ipratropium bromide 0.03 % [place], Non-Aerosol Commonly known as: ATROVENT Administer 2 Sprays in each nostril 2 times daily. Provider: Tutu Patterson Quantity: 1 mL Refills: None omeprazole 40 mg Capsule, Delayed Release(E.C.) Commonly known as: PRILOSEC Take 40 mg by mouth daily. Refills: 0 promethazine 25 mg tablet Commonly known as: PHENERGAN Take 25 mg by mouth every 6 hours as needed. Refills: 0 XANAX 2 mg tablet Take 2 mg by mouth 3 times daily. Refills: 0 Generic drug: ALPRAZolam DISCONTINUED medications levocetirizine 5 mg tablet Commonly known as: XYZAL PROTONIX 40 mg Tablet, Delayed Release (E.C.) Generic drug: pantoprazole pseudoephedrine 30 mg tablet Commonly known as: SUDAFED Where to Get Your Medications Information on where to get these meds is not yet available. Ask your nurse or doctor. - cyclobenzaprine 5 mg Tablet - HYDROcodone-acetaminophen 5-325 mg tablet Consultants: IP CONSULT TO NEUROSURGERY Brief Synopsis of Diagnostic Studies This Admission (Please see full report for details): CT Head/Cervical Spine 08/28/14: Impression: Chronic deformity at C5-C6. Reversal of cervical lordosis. Spinal canal stenosis at C5-C6. No fracture or dislocation in the cervical spine. CXR 08/28/14: IMPRESSION: No apparent active disease. MRI Brain 08/28/14: IMPRESSION: No significant intracranial abnormality. Echo stress test 08/28/14: SUMMARY: - Procedure narrative: Transthoracic stress echocardiography. Image quality was excellent. Images were captured at baseline and peak exercise. - Stress: Functional capacity was normal. - Stress ECG conclusions: The stress ECG was negative for ischemia. - Stress echo: There was no echocardiographic evidence for stress-induced ischemia. - Baseline: LV global systolic function was normal. Impressions: Normal Stress Echocardiogram. Normal Exercise Treadmill Stress Test. Labs and Studies from this Hospitalization Needing Follow Up: ?? None Discharge Lab Data (Please note date of lab as some may have preceeded admission) Lab Results Component Value Date/Time WBC 6.8 08/27/2014 11:45 PM WBC 7.2 04/27/2009 12:08 AM HEMOGLOBIN 13.1* 08/27/2014 11:45 PM HEMOGLOBIN 14.7 04/27/2009 12:08 AM HEMATOCRIT 41.0 08/27/2014 11:45 PM HEMATOCRIT 42.4 04/27/2009 12:08 AM PLATELETS 182 08/27/2014 11:45 PM PLATELETS 187 04/27/2009 12:08 AM SODIUM 143 08/27/2014 11:45 PM SODIUM 141 04/27/2009 12:08 AM CHLORIDE 104 08/27/2014 11:45 PM CHLORIDE 101 04/27/2009 12:08 AM POTASSIUM 3.6 08/27/2014 11:45 PM POTASSIUM 3.7 04/27/2009 12:08 AM CO2 29 08/27/2014 11:45 PM CO2 32* 04/27/2009 12:08 AM BUN 13 08/27/2014 11:45 PM BUN 10 04/27/2009 12:08 AM CREATININE 1.00 08/27/2014 11:45 PM CREATININE 0.92 04/27/2009 12:08 AM GLUCOSE 98 08/27/2014 11:45 PM GLUCOSE 81 04/27/2009 12:08 AM AST 33 08/27/2014 11:45 PM AST 118* 04/27/2009 12:08 AM ALT 42* 08/27/2014 11:45 PM ALT 130* 04/27/2009 12:08 AM Discharge Exam: BP 134/89 Pulse 103 Temp(Src) 97.5 ??F (36.4 ??C) (Oral) Resp 10 Ht 6' 2 (1.88 m) Wt 260lb (117.935 kg) BMI 33.37 kg/m2 SpO2 96% Last documented weight: Weight: 260 lb (117.935 kg) (08/27/14 2229) Physical Exam: General alert, cooperative, no distress, appears stated age Lungs clear to auscultation bilaterally Heart regular rate and rhythm, S1, S2 normal, no murmur, click, rub or gallop Abdomen Mild diffuse tenderness, no guarding, bowel sounds normal Extremities No peripheral edema or cyanosis Skin Skin color, texture, turgor normal. No rashes or lesions Neuro No focal deficits, MS 5/5 in BUE/BLE and symmetric, sensation intact MSK Lower left chest wall tenderness over anterior ribs Discharge Condition: improving. Follow-up: You must follow up with a PCP in NO MORE THAN 7 DAYS Signed: Augusto Mabry MD 08/28/2014, 4:24 PM ONAL INJURY LEGAL ASSISTANT * Bertha Mack DO - 08/28/2014 4:24 PM CST Pt seen and examined with resident team. Stable for dc from neurological and cardiac standpoints. Needs to follow with a pcp for outpatient management. Asked CM to aid with PCP set up - seen by coordinator and refused her aid with setting this up and stated he would schedule PCP follow-up himself. ONAL INJURY LEGAL ASSISTANT documented in this encounter Discharge Instructions * Discharge Instructions* Iwona Dyson PA - 08/28/2014 2:37 PM PERSONAL INJURY LEGAL ASSISTANT Your discharging physician is Bertha Mack DO and may be reached at [phone] for any questions or concerns until you see your doctor. FOLLOW-UP Follow up with a primary care physician in 7 Day([address]). [address] Dr. Boyer saw you for Cervical Stenosis. We would like a MRI to evaluate. Call our office and we will help arrange you need a MRI without contrast of the cervical spine. During this time try conservative treatment (Physical Therapy and Oral Medication). Our office is [phone]. Prescriptions given? Yes 1) [place] 2) Flexeril 3) Outpatient physical therapy SIGNS AND SYMPTOMS TO REPORT Contact your health care provider if you experience any of the following symptoms: increased dizziness or lightheadedness, increase in pain, shortness of breath or difficulty breathing, temperature greater than 101F or unable to keep food or fluids down or any other concerning symptoms. Heart Patients: Weigh yourself everyday at the same time, with the same amount of clothing and after you have emptied your bladder. Keep a log of your daily weights and bring them with you to your physician appointments. Call your physician (*) if you have a weight gain of 3 pounds in one day (or 5pounds in 2+ days) or (*) if you have increased shortness of breath or (*) if you have swelling in your feet, belly or legs. <<<Call 911 or go to the nearest emergency room if you have increased shortness of breath or chest pain or discomfort that is not relieved by nitroglycerin. Smoking Exposure: [facility] encourages all patients to decrease risks associated with smoking and second hand smoke exposure. If you smoke you are advised to quit. Ask your health care provider for advice if you need assistance to stop smoking. Avoid second-hand smoke exposure and do not let people smoke in your home. Please call [phone], our pulmonary rehabilitation department, to learn more about options to reduce your risks. ACTIVITY Your activity level is: increase activity as tolerated. You may return to work/school 08/29/14 DIET Your diet is: diabetic diet ONAL INJURY LEGAL ASSISTANT documented in this encounter Medications at Time [...] as of this encounter Progress Notes * Leslie Khalil RN - 08/28/2014 3:09 PM CST Pt dc'd with all prescriptions. Questions answered. Pt left independently. ONAL INJURY LEGAL ASSISTANT * Ayah Knight MSW - 08/28/2014 1:39 PM CST Community lead clinical research coordinator (CRC) spoke with patient about needs and options for PCP follow-up. Patient declined referral at this time and will schedule PCP follow-up himself. Provided patient with CRC contact information for future assistance, if needed. Provided information about the Health Insurance Marketplace. [employer] [phone] ONAL INJURY LEGAL ASSISTANT * Leslie Khalil RN - 08/28/2014 12:08 PM CST Pt c/o rib pain, increased with eating. Discussed with MD, stating it is probably d/t gastritis. MDwrote for [place], protonix, and tums. Brought all three options in to pt. Educated pt on the medications and discussed what the MD discussed with this RN. Pt declined all medications. ONAL INJURY LEGAL ASSISTANT * Regina Prather RN - 08/28/2014 7:13 AM CST Hospitalist saji, will see patient in the morning LYN * Regina Prather RN - 08/28/2014 5:20 AM CST Patient just admitted from ER. Patient not happy about having to wait for an MRI but eventually agreed to stay. States repeatedly that he is highly displeased with the care provided by [facility] and hopes to get better treatment here. cafeteria monitor placed. VSS. Remains on room air with no shortness of breath. Heart rate normal sinus rhythm in the 80s. He denies any chest pain but complains ofoccasional rib pain that he states is clearly different from chest pain as he has had this rib painoff and on. Still continuing cardiac enzyme lab draws every 6 hours. Patient remains alert and oriented with his intermittent numbness on his left side, which originally brought him in. He also states his left eye is bothering him but that he has had issues with this for a little bit and received an ointment from his belting cutter. Patient walking without any issues to the bathroom. Equal operational communication chief/pushes/pulls. ONAL INJURY LEGAL ASSISTANT documented in this encounter H&P Notes * Augusto Mabry MD - 08/28/2014 1:13 PM CST [facility] Internal Medicine Teaching Service History & Physical Augusto Mabry MD 08/28/2014 1:14 PM Patient Name: Carlos Mcgee Admit Date: 08/27/2014 Supervising Resident: Dr. Gordon PCP: No primary provider on file. Subjective: CC: Chest pain HPI: Carlos Mcgee is a 44 y.o. male ER admission with PMH significant for DM2, GERD, PTSD, and depression. He has been having intermittent left-sided CP for about 6 weeks that has acutely worsened over the last week. He has a history of costochondritis. He feels mild SOB with this CP.He has also had a long history of numbness/tingling in his left arm, which has recently worsened. He also has some numbness in his left leg and weakness in both of his legs. He has been having intermittent blurry vision with red eyes for which he has seen a belting cutter, who prescribed erythromycin. He denies history of htn or MD. PMHx: Past Medical History Diagnosis Date ??? Depression anxiety ??? Anxiety ??? Panic attacks ??? Diverticulitis ??? Diverticulitis ??? Diabetes PSurgHx: Past Surgical History Procedure Laterality Date ??? Chg removal gallbladder Medications: Current Discharge Medication List START taking these medications HYDROcodone-acetaminophen 5-325 mg tablet Commonly known as: NORCO Take 1 Tab by mouth every 4 hours as needed for Pain, Moderate. Provider: Bertha Mack Quantity: 20 Tab Refills: 0 CONTINUE taking these medications albuterol 90 mcg/Actuation HFA inhaler Take 2 Puffs by inhalation every 6 hours as needed for Shortness of Breath. Refills: 0 fluticasone 50 mcg/spray [place], Suspension Commonly known as: FLONASE Administer 2 Sprays in each nostril daily. Refills: 0 ipratropium bromide 0.03 % [place], Non-Aerosol Commonly known as: ATROVENT Administer 2 Sprays in each nostril 2 times daily. Provider: Tutu Patterson Quantity: 1 mL Refills: None omeprazole 40 mg Capsule, Delayed Release(E.C.) Commonly known as: PRILOSEC Take 40 mg by mouth daily. Refills: 0 promethazine 25 mg tablet Commonly known as: PHENERGAN Take 25 mg by mouth every 6 hours as needed. Refills: 0 XANAX 2 mg tablet Take 2 mg by mouth 3 times daily. Refills: 0 Generic drug: ALPRAZolam DISCONTINUED medications levocetirizine 5 mg tablet Commonly known as: XYZAL PROTONIX 40 mg Tablet, Delayed Release (E.C.) Generic drug: pantoprazole pseudoephedrine 30 mg tablet Commonly known as: SUDAFED Where to Get Your Medications Information on where to get these meds is not yet available. Ask your nurse or doctor. - HYDROcodone-acetaminophen 5-325 mg tablet Allergies: Allergies Allergen Reactions ??? Bactrim [Sulfamethoxazole-Trimethoprim] Hives ??? Contrast [Iodinated Contrast Media - Iv Dye] Hives ??? Levaquin [Levofloxacin] Hives ??? Lidocaine Unknown ??? Morphine Hallucination ??? Sulfa (Sulfonamide Antibiotics) Rash FHx: family history is not on file. SHx: reports that he has never smoked. He does not have any smokeless tobacco history on file. He reports that he uses illicit drugs (Prescription Drugs). He reports that he does not drink alcohol. Review of Systems: History from Patient General negative for weight changes, fever ENT Bilateral ear fullness Heme/Lymph negative for swollen glands or abnormal bleeding Endocrine negative for polyuria/polydipsia or new changes in weight CV As per HPI Respiratory As per HPI GI Positive for reflux pain sometimes worse with food, no n/v/d. negative for dysuria, trouble voiding, or hematuria MS No myalgias Neuro As per HPI Derm negative for skin rashes or unusual skin lesions Objective: Initial Vitals BP 08/27/142228 172/101 mmHg Pulse 08/27/142228 103 Resp 08/27/142228 16 Temp 08/27/142228 98 ??F (36.7 ??C) Temp src 08/27/142228 Oral SpO2 08/27/142228 97 % BP 134/89 Pulse 103 Temp(Src) 97.5 ??F (36.4 ??C) (Oral) Resp 10 Ht 6' 2 (1.88 m) Wt 260lb (117.935 kg) BMI 33.37 kg/m2 SpO2 96% Orthostatics: not done General appearance alert, cooperative, no distress, appears stated age Head Normocephalic, without obvious abnormality, atraumatic Eyes Conjunctivae/corneas clear. PERRL, EOM's intact. Throat Lips, mucosa, and tongue normal. Teeth and gums normal Neck Supple, symmetrical, trachea midline, no adenopathy, thyroid: not enlarged, symmetric, no tenderness/mass/nodules, no carotid bruit and no JVD Lungs clear to auscultation bilaterally Chest wall Left lower chest tenderness over anterior ribs Heart regular rate and rhythm, S1, S2 normal, no murmur. No rub or gallop. Abdomen Mild diffuse tenderness to palpation. WOOD ENGRAVER deferred or not applicable Extremities No peripheral edema or cyanosis Pulses peripheral pulses symmetrical Skin Skin color, texture, turgor normal. No rashes or lesions Lymph nodes Cervical, supraclavicular, and axillary nodes normal. Neurologic AOx3, no facial droop, motor strength is 5/5 and symmetric in BUE and BLE. No sensory deficits. Rectal deferred Summary of Pertinent Labs/Radiology/EKG: CBC: Lab Results Component Value Date/Time WBC 6.8 08/27/2014 11:45 PM HGB 13.1* 08/27/2014 11:45 PM HCT 41.0 08/27/2014 11:45 PM PLT 182 08/27/2014 11:45 PM MCV 72.6* 08/27/2014 11:45 PM Lab Results Component Value Date/Time NA 143 08/27/2014 11:45 PM K 3.6 08/27/2014 11:45 PM CL 104 08/27/2014 11:45 PM CO2 29 08/27/2014 11:45 PM CA 9.5 08/27/2014 11:45 PM BUN 13 08/27/2014 11:45 PM CREAT 1.00 08/27/2014 11:45 PM GLUCOSE 98 08/27/2014 11:45 PM TOTALPROTEIN 8.2 08/27/2014 11:45 PM ALBUMIN 4.4 08/27/2014 11:45 PM BILITOTAL 0.9 08/27/2014 11:45 PM ALKPHOS 67 08/27/2014 11:45 PM AST 33 08/27/2014 11:45 PM ALT 42* 08/27/2014 11:45 PM ESR 17 CE negative x 2. EKG: NSR, T-wave flattening in inferior leads 08/28/14 CXR: IMPRESSION: No apparent active disease. 08/28/14 MRI Brain: IMPRESSION: No significant intracranial abnormality. 08/28/14 CT Head/C-spine Impression: Chronic deformity at C5-C6. Reversal of cervical lordosis. Spinal canal stenosis at C5-C6. No fracture or dislocation in the cervical spine. 08/28/14 Echo stress test: SUMMARY: - Procedure narrative: Transthoracic stress echocardiography. Image quality was excellent. Images were captured at baseline and peak exercise. - Stress: Functional capacity was normal. - Stress ECG conclusions: The stress ECG was negative for ischemia. - Stress echo: There was no echocardiographic evidence for stress-induced ischemia. - Baseline: LV global systolic function was normal. Impressions: Normal Stress Echocardiogram. Normal Exercise Treadmill Stress Test. Assessment and Plan: Costochondral chest pain - cardiac enzymes negative x 2, no ST elevation, clinical history inconsistent with coronary ischemia - stress echo negative - etiology most likely costochondritis, GERD may be contributing as well - anti-inflammatories such as NSAIDs would be most appropriate, but pt is hesitant as these medications have made his reflux worse historically - start [place] for pain relief - on PPI at home, continue Cervical stenosis of spinal canal - most likely explanation for LUE paresthesias and subjective weakness - consult NSGY to evaluate need for surgery, may be done as outpatient if interferes with discharge Paresthesias with subjective weakness - LUE sx explained by cervical stenosis with radiculopathy, management as discussed above - pt may have co-existing stenosis of lumbar spine, should be followed up as an outpatient - no objective neurologic deficits and normal brain MRI reassuring GERD - pt does not have worry signs such as hematemesis, weight loss, or melena - treat with PPI and TUMS Blurry vision - unclear etiology, but reassuring with normal MRI brain that it isn't a manifestation of stroke - has seen optho in the past, recommend f/u as outpatient PTSD - home xanax has been continued DVT PRX:Will start if pt requires longer hospital stay, ambulatory w/o risk factors Indwelling Lines/Devices: PIV Family Communication: Plan discussed with pt Code Status: Full code Current Planned Disposition - home once NSGY sees later today, ok to f/u cervical stenosis as outpatient I discussed the assessment of plan for the above patient with Dr. Mack. Pt seen earlier this morning with note being prepared in afternoon. Augusto Mabry MD, PGY-1 Pager: [phone] ONAL INJURY LEGAL ASSISTANT * Bertha Mack DO - 08/28/2014 1:13 PM CST [facility] Adult Hospitalist Attending Note Patient seen and examined. Case discussed with the Resident team - Dr. Mabry on 08/28/2014. I havereviewed the note as entered and agree with the assessment and plan with any exceptions, if any, noted below. I also performed the critical or jimenez portion(s) of the service as documented below, and was directly involved in the management of the patient. When pt finally seen this am, he already had an MRI of brain done and an echo stress test done thathad been ordered by the ED physician. Pt has multiple complaints today - numbness, tingling left arm and hand as well as L leg and weakness in legs. C/o L sided chest pain, then describes L sided rib pain, hurts with palpation of this, stated that he said it was chest pain because he knew he would get seen faster. States that he thinks this is referred pain from his colon and that he might have diverticulitis. Later states that it hurts when heeats Wants us to check his ears and nose because he has not been taking his flonase for a month and he is concerned fluid might be building up causing him to have vertigo Blurry vision and eye redness, states he saw optho and given drops, does not have here, imaging notconcerning, follow up with op optho BP 134/89 Pulse 103 Temp(Src) 97.5 ??F (36.4 ??C) (Oral) Resp 10 Ht 6' 2 (1.88 m) Wt 260lb (117.935 kg) BMI 33.37 kg/m2 SpO2 96% Body mass index is 33.37 kg/(m^2). Temp (24hrs), Av ??F (36.7 ??C), Min:97.5 ??F (36.4 ??C), Max:98.6 ??F (37 ??C) Exam: General appearance alert, cooperative, no distress, appears stated age Lungs clear to auscultation bilaterally, left lower chest wall tender to palpation Heart regular rate and rhythm, S1, S2 normal, no murmur, click, rub or gallop Abdomen soft, non-tender. Bowel sounds normal. No masses, No organomegaly Extremities extremities normal, atraumatic, no cyanosis or edema Pulses 2+ and symmetric Data Review: I have reviewed today's labs if any. Assessment/Plan: 1. CP - actually rib pain, msk likely costochondritis - does not tolerate nsaids (gives him gastritis ), d/w him pain control and time 2 . L sided numbness/tingling - MRI brain neg, does have dz on CT cervical spine - will ask spine to eval prior to dc today Pt medically stable for dc, no further work up needed and he can follow up with outpatient pcp - rober apparently just fired his recently so have asked CM to set up pcp follow up for future prior todc today Approx 35 min were spent in the care of this patient today; this may include family conference, nursing conference and discussion with any consultants. Bertha Mack DO [facility] Hospitalist ONAL INJURY LEGAL ASSISTANT documented in this encounter Consult Notes * Iwona Dyson PA - 08/28/2014 2:07 PM CSTAssociated Order(s): IP CONSULT TO NEUROSURGERY [place], [place] [address] Neurosurgery Consult Patient Name: Carlos Mcgee : 1970 [id number] Date of Service: 08/28/2014 Date of Admission: 08/27/2014 Admitting Physician: Divina Cabral MD Chief Complain / History of Present Illness: Carlos is a right handed 44 y.o. male who was admitted to the hospital on August 27 2014 by Divina Cabral MD in regards to pain on the left side of the body. CVA and MD rule out. Pain on posterior neck down the arm into hand and paraesthesias from 3-5th digit to elbow going on for 6 weeks. Alsoreports pain in left leg in a spotty distribution thigh, posterior calf and foot going on for 4 days. Patient has seen a Chiropractor for neck pain for 6-7 years. I had BLE weakness about 6 years ago and walked with a cane until physical therapy strengthen me, for this he had care at [facility]. Patient has sought medical care for the above issues at [facility] and [facility], my sausage cutter are already working with [facility] they are a joke. He was diagnosis with DM2 this past December by PCP but care was transferred to a Show Low Casing Wringer Operator as my medical problem were to much for my PCP and then I fired the Show Low Doctor. He reports watching what he eat for his DM but take no medication. Currently he states his left sided rib pain is the worst and he does not appear to believe the diagnosis of Costochondritis.He was told he needed glasses and saw a Opthalmologist and order frames butthe prescription was wrong they told me to go to [facility]. Due to cervical stenosis we were asked to see the patient. On my visit with Arceliamilagros he is hemodynamically stable and alert. Past Medical History Diagnosis Date ??? Depression anxiety ??? Anxiety ??? Panic attacks ??? Diverticulitis ??? Diverticulitis ??? Diabetes Past Surgical History Procedure Laterality Date ??? Chg removal gallbladder No current facility-administered medications on file prior to encounter. Current Outpatient Prescriptions on File Prior to Encounter Medication Sig Dispense Refill ??? omeprazole (PRILOSEC) 40 mg Capsule, Delayed Release(E.C.) Take 40 mg by mouth daily. ??? alprazolam (XANAX) 2 mg Oral tablet Take 2 mg by mouth 3 times daily. ??? promethazine (PHENERGAN) 25 mg Oral tablet Take 25 mg by mouth every 6 hours as needed. ??? [DISCONTINUED] amoxicillin (AMOXIL) 875 mg tablet Take 875 mg by mouth every 12 hours. ??? fluticasone (FLONASE) 50 mcg/spray Both Nostril SpSn Administer 2 Sprays in each nostril daily. ??? ipratropium bromide (ATROVENT) 0.03 % Both Nostril Judsonia Administer 2 Sprays in each nostril 2 times daily. 1 mL None ??? [DISCONTINUED] amoxicillin-clavulanate (AUGMENTIN) 875-125 mg Oral tablet Take 1 Tab by mouth every 12 hours. ??? [DISCONTINUED] pseudoephedrine (SUDAFED) 30 mg Oral tablet Take 60 mg by mouth every 4 hours asneeded. ??? [DISCONTINUED] levocetirizine (XYZAL) 5 mg Oral tablet Take 1 Tab by mouth Daily LATE. 20 Tab 0 ??? [DISCONTINUED] pantoprazole (PROTONIX) 40 mg Oral TbEC Take 40 mg by mouth daily. ??? [DISCONTINUED] escitalopram (LEXAPRO) 10 mg Oral Tab Take 5 mg by mouth daily. ??? [DISCONTINUED] duloxetine (CYMBALTA) 60 mg Oral CpDR Take 60 mg by mouth daily. Pt non compliant Allergies Allergen Reactions ??? Bactrim [Sulfamethoxazole-Trimethoprim] Hives ??? Contrast [Iodinated Contrast Media - Iv Dye] Hives ??? Levaquin [Levofloxacin] Hives ??? Lidocaine Unknown ??? Morphine Hallucination ??? Sulfa (Sulfonamide Antibiotics) Rash History Social History ??? Marital Status: Spouse Name: N/A Number of Children: N/A ??? Years of Education: N/A Occupational History ? Social History Main Topics ??? Smoking status: Never Smoker ??? Smokeless tobacco: Not on file ??? Alcohol Use: No ??? Drug Use: Yes Special: Prescription Drugs ??? Sexual Activity: Not on file Other Topics Concern ??? Not on file Social History Narrative ??? No narrative on file No family history on file. Review of Systems: General: patient reports any weight loss and head pressure Hematopoetic: patient denies any anemia, bleeding or easy bruisability CLINICAL RESEARCH NURSE COORDINATOR: Positive for paresthesia, dizziness and headache negative for vertigo, memory problems, gait problems, tremor and weakness Eye: reports for left eye blurry vision Ears: patient denies any hearing loss, pain, vertigo, tinnitus Nose and throat: patient reports nasal congestion denies any postnasal drip, sore throat, epistaxis. Cardiovascular: Patient reports left sided CP-resolved Respiratory: patient denies any shortness of breath, cough, sputum production GI: patient denies any nausea, vomiting, diarrhea, constipation or abdominal pain : negative Muskuloskeletal: reports pain in the LUE and LLE Integumentary: negative for skin rashes or unusual skin lesions abrasion, laceration Endocrine: patient denies polydipsia, polyphasia or nervousness. Psychiatric: PTSD Physical Exam: Blood pressure 134/89, pulse 103, temperature 97.5 ??F (36.4 ??C), temperature source Oral, resp. rate 10, height 6' 2 (1.88 m), weight 260 lb (117.935 kg), SpO2 96.00%. Constitutional: morbidly obese, NAD HEENT: Head: Normocephalic, no lesions, without obvious abnormality. Neck: normal and supple Cardiovascular: Normal - Regular rate and rhythm Respiratory: lungs clear to auscultation Gastrointestinal: tenderness on left side, BS 4/4 Genitourinary: voiding without difficulty Musculoskeletal: Normal Integumentary: no wounds Psychiatric: normal mood, good judgement Neurological exam Mental status: Patient is Alert, Oriented to person/place/year, word finding is intact, repetition is intact Cranial nerves: visual ryan were full to confrontation; pupils were equal and reactive to light; versions were full without nystagmus; facial sensation was full; eye closure and smile were symmetric; no dysarthria was appreciated; palate elevated symmetrically; shoulder shrug was symmetric; tongue protruded midline. Motor: No pronator drift, Power was full throughout upper and lower extremities Sensory: Pinprick is intact throughout except decrease LUE medial and lateral aspects from elbow down Coordination: Dysmetria was not present with finger to nose test Reflexes: 2/4 throughout upper and lower extremities, Plantar responses were down going bilaterally, Clonus was not present. Gomez Negative Imaging Studies: CT of the Cervical spine shows- straightening of cervical spine with chronic osteophyte complex at C5-6 with associated stenosis. MRI of the Brain shows- without abnormality Assessment and Plan: 44 y.o. male with multiple active medical conditions and concerns. Patient is neurologically intact. Would recommend MRI cervical spine without for evaluation in the outpatient setting. During this time he can try physical therapy. He might need a EMG/NCS but would start with MRI. Ultimately his biggest benefit would be a stable PCP who can help him navigate his medical conditions and the evaluations that they will require. I educated patient on the importance of diabetes management as it has wide systemic effects. This assessment and plan was discussed with Dr. Rosalind Dyson PA-c [id number] Attending: rosalind ONAL INJURY LEGAL ASSISTANT documented in this encounter ED Notes * Fadi Weiner RN - 08/28/2014 2:38 AM CST Patient/family has been informed about benefits and any potential clinically significant side effects or other concerns regarding the administration of the drug they have just been given. ONAL INJURY LEGAL ASSISTANT * Fadi Weiner RN - 08/28/2014 2:22 AM CST Patient laying in bed with no new complaints. Pt unsure if wants to stay to be admitted or be discharged and go home. Pt wants to talk to doctor again. Dr. Gauthier notified. ONAL INJURY LEGAL ASSISTANT * Fadi Weiner RN - 08/28/2014 12:31 AM CST Pt returned from CT scan. Pt requesting to talk to a steel box toe inserter. Liquor Merchant called and states it will be a little bit of time, but he will be down when he is available. ONAL INJURY LEGAL ASSISTANT * Fadi Weiner RN - 08/27/2014 11:30 PM CST Patient to ER with multiple complaints. Pt c/o left arm pain for the past month. Pt also has been having blurry vision to his left eye starting this past week and well as weakness to his left leg. Ptstates that it feels like his leg doesn't want to work. Pt went to [facility] and states that they didn't do anything for him so he came here. Pt was also in a different ER 2-3 weeks ago for not feeling well and the pain in his arm. Skin pink, warm and dry. Equal rise and fall of the chest noted. Pt moves all extremities without difficulty. Answers questions appropriately. ONAL INJURY LEGAL ASSISTANT * Ian Gauthier, - 08/27/2014 11:22 PM CST HISTORY OF PRESENT ILLNESS Carlos Mcgee, a 44 y.o. male presents to the ED with a Chief Complaint of Extremity Weakness HPI Comments: 11:23 PM: Carlos Mcgee is a 44 y.o. male with a h/o DM who presents to the Emergency Department with multiple complaints. The pt states he started having blurry vision and double vision 1 week ago. Three days ado, the pt started having LLE and L sided neck pain. The pt also reports LLE and BLE weakness. The pt states he took Flexeril which momentarily relieved his sx. The pt was recently seen for CP and diverticulitis, but all of the testing came back negative. PMx: Diverticulitis PSHx: Cholecystectomy There are no other symptoms or complaints at this time. Physician(s): Balta Costello MD The history is provided by the patient. The patient arrived by private vehicle. The patient arrivedfrom home. REVIEW OF SYSTEMS Review of Systems Constitutional: Negative for fever and chills. HENT: Negative for congestion, ear pain, hearing loss, nosebleeds, sore throat and tinnitus. Eyes: Negative for photophobia, pain and visual disturbance. +blurry vision and double vision Respiratory: Negative for cough, chest tightness, shortness of breath and wheezing. Cardiovascular: Negative for chest pain, palpitations and leg swelling. Gastrointestinal: Negative for nausea, vomiting, abdominal pain, diarrhea and blood in stool. Genitourinary: Negative for dysuria, hematuria, flank pain, decreased urine volume and difficulty urinating. Musculoskeletal: Positive for neck pain. +LLE pain Skin: Negative for rash and wound. Neurological: Positive for weakness (LLE and BLE). Negative for dizziness, seizures, syncope, facial asymmetry and headaches. Psychiatric/Behavioral: Negative for suicidal ideas, behavioral problems, confusion, sleep disturbance, self-injury and agitation. All other systems reviewed and are negative. PAST MEDICAL HISTORY REVIEWED MEDICAL Patient has a past medical history of Depression (anxiety); Anxiety; Panic attacks; Diverticulitis;and Diverticulitis. SURGICAL Patient has past surgical history that includes chg removal gallbladder. FAMILY Patient's family history is not on file. SOCIAL reports that he has never smoked. He does not have any smokeless tobacco history on file. He reports that he uses illicit drugs (Prescription Drugs). He reports that he does not drink alcohol. PROBLEM LIST Patient has Numbness and Chest pain on his problem list. ALLERGIES Bactrim; Contrast; Levaquin; Lidocaine; Morphine; and Sulfa (sulfonamide antibiotics) HOME MEDICATIONS Patient's Home Medications Current Home Medications ALBUTEROL 90 MCG/ACTUATION HFA INHALER ALPRAZOLAM (XANAX) 2 MG ORAL TABLET AMOXICILLIN [...] this Encounter PHYSICAL EXAM INITIAL VS BP: 172/101 mmHg (08/27/142228), Heart Rate (Monitored): 99 bpm (08/28/14 0000), Resp: 16 (08/27/142228), Temp: 98 ??F (36.7 ??C) (08/27/142228), Temp src: Oral (08/27/142228), SpO2: 97 % (08/27/142228), Height: 6' 2 (188 cm) (08/27/142228), Weight: 117.935 kg (08/27/142228), BMI (Calculated): 33.45 (08/27/142228) No LMP for male patient. Physical Exam [...] He has a normal mood and affect. DIAGNOSTICS LAB: Results for orders placed during the hospital encounter of 08/27/14 (from the past 24 hour(s)) CBC WITH DIFFERENTIAL Result Value Range WBC 6.8 4.0 - 9.8 K/uL RBC 5.65 (*) 4.50 - 5.40 M/uL HEMOGLOBIN 13.1 (*) 13.6 - 16.5 g/dL HEMATOCRIT 41.0 40.0 - 48.0 % MCV 72.6 (*) 82.0 - 99.0 fL MCH 23.2 (*) 27.2 - 32.6 pg MCHC 32.0 31.5 - 35.5 % PLATELETS 182 140 - 350 K/uL MPV 9.5 9.3 - 12.4 fL RDW 16.1 (*) 11.5 - 14.5 % RDW-STDEV 41.2 37.1 - 48.7 fL NEUTROPHILS 63 45 - 70 % LYMPHOCYTES 28 16 - 45 % MONOCYTES 7 3 - 13 % EOSINOPHILS 1 0 - 7 % BASOPHILS 0 0 - 2 % NEUTROPHIL ABSOLUTE 4.35 1.90 - 7.00 K/uL LYMPHOCYTE ABSOLUTE 1.95 0.70 - 4.50 K/uL MONOCYTE ABSOLUTE 0.45 0.10 - 1.30 K/uL EOSINOPHIL ABSOLUTE 0.08 0.00 - 0.70 K/uL BASOPHILS ABSOLUTE 0.02 0.00 - 0.20 K/uL SEDIMENTATION RATE Result Value Range ESR (SEDIMENTATION RATE) 17 (*) 0 - 15 mm/hr CARDIAC ENZYMES Result Value Range TROPONIN T <0.01 <=0.03 ng/mL TROPONIN T INTERP Negative COMPREHENSIVE METABOLIC PANEL Result Value Range SODIUM 143 136 - 145 mmol/L POTASSIUM 3.6 3.5 - 5.0 mmol/L CHLORIDE 104 98 - 107 mmol/L CO2 29 22 - 29 mmol/L CALCIUM 9.5 8.6 - 10.2 mg/dL BUN 13 6 - 20 mg/dL CREATININE 1.00 0.67 - 1.17 mg/dL GLUCOSE 98 79 - 99 mg/dL TOTAL PROTEIN 8.2 6.7 - 8.6 g/dL ALBUMIN 4.4 3.5 - 5.2 g/dL BILIRUBIN TOTAL 0.9 0.3 - 1.2 mg/dL ALKALINE PHOSPHATASE 67 40 - 129 U/L AST 33 <=40 U/L ALT 42 (*) <=41 U/L GFR, >60 >=60 mL/min/1.7 sq meter GFR >60 >=60 mL/min/1.7 sq meter BRAIN NATRIURETIC PEPTIDE, BNP OR PROBNP Result Value Range PRO-BNP <50 <=124 pg/mL RADIOLOGY: XR CHEST PA OR AP ED Interpretation: nad CT HEAD CERVICAL SPINE WO CONTRAST Radiologist Impression: Impression: Chronic deformity at C5-C6. Reversal of cervical lordosis. Spinal canal stenosis at C5-C6. No fracture or dislocation in the cervical spine. Dictated from location 4 DLP is 1625.27 EKG: Sinus tachycardia with a rate of 100, borderline LVH, no ischemic changes. PROCEDURES Procedures MEDICAL DECISION MAKING AND PLAN OF CARE REEVALUATION 1:55 AM: Updated patient on results, diagnosis, and plan for admission. Patient agrees with the plan. The opportunity for questions was given and questions were answered to the patient's satisfaction. All questions and concerns have been addressed. CASE DISCUSSED Medications Administered During the ED Stay from 08/27/2014 2228 to 08/28/2014 0251 Date/Time Order Dose Route Action 08/28/2014 0238 ALPRAZolam (XANAX) tablet 2 mg 2 mg Oral Given . New Prescriptions for this Encounter LAST VITALS BP: 155/67 mmHg (08/28/14 0100), Heart Rate (Monitored): 98 bpm (08/28/140), Resp: 16 ([id number]), Temp: 98 ??F (36.7 ??C) (08/27/142228), Temp src: Oral (08/27/142228), SpO2: 96 % (08/28/1499) CLINICAL IMPRESSION Final diagnoses: Numbness Chest pain CODING MDM Coding Reviewed: previous chart, nursing note and vitals Reviewed previous: labs Interpretation: SP02, labs, ECG, cardiac monitoring, x-ray and CT scan I have reviewed nursing notes and agree unless otherwise mentioned. Consults: hospitalist DISPOSITION, EDUCATION AND MEDICATION RECONCILIATION Medications reconciled. See after visit summary for patient education on discharged patients. Disposition: Patient admitted to the hospital. This note has been prepared by Ángel De La Cruz acting as a scribe for Dr. Gauthier. The scribe's documentation has been prepared under my direction and personally reviewed by me in its entirety. I confirm that the note above accurately reflects all work, treatment, procedures, and medical decision making performed by me. ONAL INJURY LEGAL ASSISTANT documented in this encounter Miscellaneous Notes * Care Plan - Sara Quijano MSW - 08/28/2014 11:56 AM CST Problem: General Plan of Care (Adult, Obstetrics) Goal: Identify Discharge Needs Patients discharge needs are identified. Outcome: Completed Date Met: 08/28/14 Patient with a DC order. OBS letter provided. Also provided a [facility] PCP booklet and asked [place] to [place] [phone] ONAL INJURY LEGAL ASSISTANT documented in this encounter Plan of Treatment Scheduled Orders Name Type Priority Associated Diagnoses Orde r Schedule URINALYSIS WITH REFLEX CULTURE Lab Routine ONE TIME for 1 Occurrences starting 08/27/2014 until 08/27/2014 Scheduled Referrals Name Type Priority Associated Diagnoses Orde r Schedule AMB REFERRAL TO PHYSICAL THERAPY Outpatient Referral Routine Cervical stenosis of spinal canal Ordered: 08/28/2014 documented as of this encounter Procedures Procedure Name Priority Date/Time Associated Diagnosis Comments TELEMETRY REPORT 09/03/2014 4:19 PM PERSONAL INJURY LEGAL ASSISTANT ECHO STRESS TEST EXERCISE Routine 08/28/2014 9:54 AM PERSONAL INJURY LEGAL ASSISTANT MRI BRAIN WO CONTRAST Stat 08/28/2014 8:04 AM PERSONAL INJURY LEGAL ASSISTANT CARDIAC ENZYMES Stat 08/28/2014 5:15 AM PERSONAL INJURY LEGAL ASSISTANT XR CHEST PA OR AP 1 VW Stat 4 12:24 AM PERSONAL INJURY LEGAL ASSISTANT CT HEAD CERVICAL SPINE WO CONTRAST Stat 08/28/2014 12:20 AM PERSONAL INJURY LEGAL ASSISTANT EKG 12-LEAD Stat 08/27/2014 11:51 PM PERSONAL INJURY LEGAL ASSISTANT CARDIAC ENZYMES Stat 08/27/2014 11:45 PM PERSONAL INJURY LEGAL ASSISTANT CBC WITH DIFFERENTIAL Stat 08/27/2014 11:45 PM PERSONAL INJURY LEGAL ASSISTANT SEDIMENTATION RATE Stat 08/27/2014 11 :45 PM PERSONAL INJURY LEGAL ASSISTANT BRAIN NATRIURETIC PEPTIDE, BNP OR PROBNP Stat 08/27/2014 11:45 PM PERSONAL INJURY LEGAL ASSISTANT COMPREHENSIVE METABOLIC PANEL Stat 08/27/2014 11:45 PM PERSONAL INJURY LEGAL ASSISTANT PULSE OXIMETRY, CONTINUOUS Stat 08/27/2014 11:31 PM PERSONAL INJURY LEGAL ASSISTANT OXYGEN VIA DEVICE TO KEEP O2 SAT ABOVE Stat 08/27/2014 11:31 PM PERSONAL INJURY LEGAL ASSISTANT documented in this encounter Results * TELEMETRY REPORT (09/03/2014 4:19 PM PERSONAL INJURY LEGAL ASSISTANT) Provider Scanning ECG ORDERABLES * ECHO STRESS TEST EXERCISE (08/28/2014 9:54 AM PERSONAL INJURY LEGAL ASSISTANT) EJECTION FRACTION INTERFACE SYSTEM 08/28/2014 9:21 AM PERSONAL INJURY LEGAL ASSISTANT Narrative INTERFACE SYSTEM - 08/28/2014 9:58 AM PERSONAL INJURY LEGAL ASSISTANT [facility] [address] [place] [address] [email or web address] Stress Echocardiography Henry Protocol Patient: ?Carlos Mcgee MRN: ?[id number] Study ID: ? [id number] Gender: ? M : ?1970 Age: ?44 Race: ? [facility] Height Study Date: ? 08/28/2014 Weight: Access. #: ?[id number] BP: ? 120 / 75 *Referring Physician:* Ian Gauthier *Ordering Physician:* ??Ian Gauthier Career Law Clerk: ? JS STUDY CONCLUSIONS: SUMMARY: - Procedure narrative: Transthoracic stress ??echocardiography. Image quality was excellent. Images were ??captured at baseline and peak exercise. - Stress: Functional capacity was normal. - Stress ECG conclusions: The stress ECG was negative for ??ischemia. - Stress echo: There was no echocardiographic evidence for ??stress-induced ischemia. - Baseline: LV global systolic function was normal. Impressions: ??Normal Stress Echocardiogram. Normal Exercise Treadmill Stress Test. Cardiac Anatomy: Stress results: ?? Maximal heart rate during stress was 158bpm (89% of maximal predicted heart rate). The maximal predicted heart rate was 178bpm.The heart rate response to stress was normal. There was a normal resting blood pressure with an appropriate response to stress. Functional capacity was normal. ?Treadmill exercise testing was performed using the Henry protocol. The patient exercised for 7 min 45 sec, to a maximal work rate of 40.1mets. Exercise was terminated due to achievement of target heart rate, dyspnea, and fatigue. Stress ECG: ??There were no stress arrhythmias or conduction abnormalities. ??The stress ECG was negative for ischemia. Baseline: LV size was normal. LV global systolic function was normal. Normal wall motion; no LV regional wall motion abnormalities. Peak stress: LV size was reduced. LV global systolic function was augmented. Normal wall motion; no LV regional wall motion abnormalities. Stress echo results: ? There was no echocardiographic evidence for stress-induced ischemia. Procedure data: Consent: ??The risks, benefits, and alternatives to the procedure were explained to the patient and informed consent was obtained. ??Procedure information: ??Initial setup. A baseline ECG was recorded. Surface ECG leads and automatic cuff blood pressure measurements were monitored. Transthoracic stress echocardiography. Image quality was excellent. Images were captured at baseline and peak exercise. ??Study completion: ??There were no complications. ? Henry protocol. Stress echocardiography. ??Birthdate: Patient birthdate: 1970. ??Age: ??Patient is 44yr old. Sex: ??Gender: male. ??Blood pressure: ? 120/75. ??Study date: ??Study date: August 28, 2014. ?Prepared and Electronically Authenticated Librado Enciso [id number] Procedure Note Librado Enciso MD - 08/28/2014 [place] [address] [email or web address] [email or web address] Henry Protocol Patient: Carlos Mcgee Study ID: [id number] Gender: M : 1970 Age: 44 Race: CAU Height Study Date: 08/28/2014 Weight: Access. #: [id number] BP: 120 / 75 *Referring Physician:* Ian Gauthier *Ordering Physician:* Ian Gauthier Career Law Clerk: RONNY STUDY CONCLUSIONS: SUMMARY: - Procedure narrative: Transthoracic stress echocardiography. Image quality was excellent. Images were captured at baseline and peak exercise. - Stress: Functional capacity was normal. - Stress ECG conclusions: The stress ECG was negative for ischemia. - Stress echo: There was no echocardiographic evidence for stress-induced ischemia. - Baseline: LV global systolic function was normal. Impressions: Normal Stress Echocardiogram. Normal Exercise Treadmill Stress Test. Cardiac Anatomy: Stress results: Maximal heart rate during stress was 158bpm (89% of maximal predicted heart rate). The maximal predicted heart rate was 178bpm.The heart rate response to stress was normal. There was a normal resting blood pressure with an appropriate response to stress. Functional capacity was normal. Treadmill exercise testing was performed using the Henry protocol. The patient exercised for 7 min 45 sec, to a maximal work rate of 40.1mets. Exercise was terminated due to achievement of target heart rate, dyspnea, and fatigue. Stress ECG: There were no stress arrhythmias or conduction abnormalities. The stress ECG was negative for ischemia. Baseline: LV size was normal. LV global systolic function was normal. Normal wall motion; no LV regional wall motion abnormalities. Peak stress: LV size was reduced. LV global systolic function was augmented. Normal wall motion; no LV regional wall motion abnormalities. Stress echo results: There was no echocardiographic evidence for stress-induced ischemia. Procedure data: Consent: The risks, benefits, and alternatives to the procedure were explained to the patient and informed consent was obtained. Procedure information: Initial setup. A baseline ECG was recorded. Surface ECG leads and automatic cuff blood pressure measurements were monitored. Transthoracic stress echocardiography. Image quality was excellent. Images were captured at baseline and peak exercise. Study completion: There were no complications. Henry protocol. Stress echocardiography. Birthdate: Patient birthdate: 1970. Age: Patient is 44yr old. Sex: Gender: male. Blood pressure: 120/75. Study date: Study date: August 28, 2014. Prepared and Electronically Authenticated Librado Enciso [id number] Ian GALLAGHER ORDERABLES INTERFACE SYSTEM Refer to clinic/hospital department * MRI BRAIN WO CONTRAST (08/28/2014 8:04 AM PERSONAL INJURY LEGAL ASSISTANT) Anatomical Region Laterality Modality Head Magnetic Resonan ce 08/28/2014 7:51 AM PERSONAL INJURY LEGAL ASSISTANT Impressions 08/28/2014 2:27 PM PERSONAL INJURY LEGAL ASSISTANT IMPRESSION: No significant intracranial abnormality. Dictated from Location 1, ??[facility] Narrative 08/28/2014 2:27 PM PERSONAL INJURY LEGAL ASSISTANT EXAM : MRI BRAIN WO CONTRAST DATE: Aug 28, 2014 08:04:20 AM INDICATION: Blurred vision. TECHNIQUE: Multiplanar and multisequence MR images were acquired. Standard protocol was utilized. FINDINGS: There is no diffusion signal abnormality to suggest acute infarct. Brain parenchymal signal intensity is within normal limits. No susceptibility artifact hemorrhage products are seen. Ventricular system is normal in appearance. Midline structures are not displaced. Extra-axial CSF spaces are normal. Arteriovascular flow voids are intact at the [place] of [place]. Mucosal retention cyst in the right maxillary sinus measures roughly 2.8 x 1.6 cm in size. Procedure Note Anthony Hines MD - 08/28/2014 EXAM : MRI BRAIN WO CONTRAST DATE: Aug 28, 2014 08:04:20 AM INDICATION: Blurred vision. TECHNIQUE: Multiplanar and multisequence MR images were acquired. Standard protocol was utilized. FINDINGS: There is no diffusion signal abnormality to suggest acute infarct. Brain parenchymal signal intensity is within normal limits. No susceptibility artifact hemorrhage products are seen. Ventricular system is normal in appearance. Midline structures are not displaced. Extra-axial CSF spaces are normal. Arteriovascular flow voids are intact at the [place] of [place]. Mucosal retention cyst in the right maxillary sinus measures roughly 2.8 x 1.6 cm in size. IMPRESSION IMPRESSION: No significant intracranial abnormality. Dictated from Location 1, [facility] Ian Gauthier DO MR ORDERABLES * CARDIAC ENZYMES (08/28/2014 5:15 AM PERSONAL INJURY LEGAL ASSISTANT) TROPONIN T <0.01 <=0.03 ng/mL [facility] TROPONIN T INTERP Negative [facility] Blood 08/28/2014 5:15 AM PERSONAL INJURY LEGAL ASSISTANT 08/28/2014 5:21 AM PERSONAL INJURY LEGAL ASSISTANT Ian Gauthier DO CHEMISTRY ORDERABLES [facility] CLIA# [id number] [address] [place] [address] * XR CHEST PA OR AP (08/28/2014 12:24 AM PERSONAL INJURY LEGAL ASSISTANT) Anatomical Region Laterality Modality Chest Computed Radiogr aphy 08/28/2014 12:2 0 AM PERSONAL INJURY LEGAL ASSISTANT Impressions 08/28/2014 8:27 AM PERSONAL INJURY LEGAL ASSISTANT IMPRESSION: No apparent active disease. Dictated from Location 1, ??[facility] Narrative 08/28/2014 8:27 AM PERSONAL INJURY LEGAL ASSISTANT SINGLE VIEW CHEST, ??08/28/2014 CLINICAL HISTORY: Chest pain. The heart, mediastinum and hilar shadows appear normal. The lungs are clear and well-expanded. The there is mild pleural thickening present bilaterally, but no pleural fluid is seen. There is no evidence of pneumothorax. Procedure Note Librado Maciel MD - 08/28/2014 SINGLE VIEW CHEST, 08/28/2014 CLINICAL HISTORY: Chest pain. The heart, mediastinum and hilar shadows appear normal. The lungs are clear and well-expanded. The there is mild pleural thickening present bilaterally, but no pleural fluid is seen. There is no evidence of pneumothorax. IMPRESSION IMPRESSION: No apparent active disease. Dictated from Location 1, [facility] Ian Gauthier DO DIAGNOSTIC IMAGING O RDERABLES * CT HEAD CERVICAL SPINE WO CONTRAST (08/28/2014 12:20 AM PERSONAL INJURY LEGAL ASSISTANT) Anatomical Region Laterality Modality Head Computed Tomogra phy 08/28/2014 12:0 7 AM PERSONAL INJURY LEGAL ASSISTANT Impressions 08/28/2014 12:35 AM PERSONAL INJURY LEGAL ASSISTANT Impression: Chronic deformity at C5-C6. Reversal of cervical lordosis. Spinal canal stenosis at C5-C6. No fracture or dislocation in the cervical spine. Dictated from location 4 DLP is 1625.27 Narrative 08/28/2014 12:35 AM PERSONAL INJURY LEGAL ASSISTANT CT HEAD CERVICAL SPINE WO CONTRAST, Aug 28, 2014 12:07:40 AM INDICATION: Transient Ischemic Attack TIA DISCUSSION: CT of the head and cervical spine is performed without contrast. Imaging is performed from the vertex to lung apices and images are reconstructed in the axial sagittal and coronal planes. Bone and soft tissue windows are reviewed. Findings CT of the head: The brain and ventricles are within normal limits. There is no hemorrhage, midline shift, mass effect, or extra-axial fluid collection. There is no evidence of acute large cortical infarction. There is no depressed skull fracture. Paranasal sinuses and mastoid air cells are clear except for a mucous retention cyst in the right maxillary sinus. Impression CT of the head: No hemorrhage or other acute-appearing intracranial abnormality. Findings CT of the cervical spine: There is reversal of cervical lordosis. Cervical alignment is otherwise unremarkable. Cervical heights are well-maintained and there is no fracture or dislocation. There is no aggressive bone lesion. Chronic deformity is seen at C5-C6 when there is posterior disc osteophyte . There is mass effect on thecal sac at C5-C6 and there is spinal canal stenosis at C5-C6. No spinal canal stenosis is seen elsewhere. There is no spinal canal hematoma. There is no other finding. Procedure Note Balta Chand MD - 08/28/2014 CT HEAD CERVICAL SPINE WO CONTRAST, Aug 28, 2014 12:07:40 AM INDICATION: Transient Ischemic Attack TIA DISCUSSION: CT of the head and cervical spine is performed without contrast. Imaging is performed from the vertex to lung apices and images are reconstructed in the axial sagittal and coronal planes. Bone and soft tissue windows are reviewed. Findings CT of the head: The brain and ventricles are within normal limits. There is no hemorrhage, midline shift, mass effect, or extra-axial fluid collection. There is no evidence of acute large cortical infarction. There is no depressed skull fracture. Paranasal sinuses and mastoid air cells are clear except for a mucous retention cyst in the right maxillary sinus. Impression CT of the head: No hemorrhage or other acute-appearing intracranial abnormality. Findings CT of the cervical spine: There is reversal of cervical lordosis. Cervical alignment is otherwise unremarkable. Cervical heights are well-maintained and there is no fracture or dislocation. There is no aggressive bone lesion. Chronic deformity is seen at C5-C6 when there is posterior disc osteophyte . There is mass effect on thecal sac at C5-C6 and there is spinal canal stenosis at C5-C6. No spinal canal stenosis is seen elsewhere. There is no spinal canal hematoma. There is no other finding. IMPRESSION Impression: Chronic deformity at C5-C6. Reversal of cervical lordosis. Spinal canal stenosis at C5-C6. No fracture or dislocation in the cervical spine. Dictated from location 4 DLP is 1625.[address] ORDERABLES * EKG 12-LEAD (08/27/2014 11:51 PM PERSONAL INJURY LEGAL ASSISTANT) 08/27/2014 11:5 1 PM PERSONAL INJURY LEGAL ASSISTANT Narrative INTERFACE SYSTEM - 08/28/2014 8:27 AM PERSONAL INJURY LEGAL ASSISTANT ? Stationary ECG Study ? [facility] ? Test Date: ?08/27/2014 11:51:11 PM ?? Pat Name: ? Vincent Corpus ? Department: ?? 14 ?Room: ? 17 17 ? Gender: ? M ?Automotive Artist: ?? puridm ? : ?1970 ? Requested by: Tramaine Law ? Order Number: [id number] ?Reading : ?? Librado Enciso ? Intervals ?[place] ? Rate: ? 100 ?P: ?40 ? RI: ? 131 ?QRS: ?48 ? QRSD: ? 111 ?T: ?6 ? QT: ? 330 ? QTc: ?387 ? Interpretive Statements SINUS TACHYCARDIA ABNORMAL RHYTHM ECG No previous ECG available for comparison Electronically Signed On 08-28-14 08:27:47 PERSONAL INJURY LEGAL ASSISTANT by Librado Enciso Procedure Note Provider, Historical - 08/28/2014 Stationary ECG Study [facility] Test Date: 08/27/2014 11:51:11PM Pat Name: Carlos Mcgee Department: 14 Room: 17 17 Gender: M Automotive Artist: alina : 1970 Requested by: Tramaine Law Order Number: [id number] Reading MD: Librado Enciso Intervals [place] Rate: 100 P: 40 RI: 131 QRS: 48 QRSD: 111 T: 6 QT: 330 QTc: 387 Interpretive Statements SINUS TACHYCARDIA ABNORMAL RHYTHM ECG No previous ECG available for comparison Electronically Signed On 08-28-14 08:27:47 PERSONAL INJURY LEGAL ASSISTANT by Librado Enciso Ian Nguyenevens DO ECG ORDERABLES INTERFACE SYSTEM Refer to clinic/hospital department * BRAIN NATRIURETIC PEPTIDE, BNP OR PROBNP (08/27/2014 11:45 PM PERSONAL INJURY LEGAL ASSISTANT) PRO-BNP <50 <=124 pg/mL [facility] Comment: proBNP Interpretation: Reference values for screening purposes based on club waiter/waitress's recommendation: Patients less than 75 years: <125 pg/mL Patients 75 years and older: <450 pg/mL Reference values for determination of acute congestive heart failure in dyspneic patients based on PRIDE study (AM J Cardiol 2005;95:948): Patients less than 50 years: <450 pg/mL (Negative predictive value= 99%) Patients 50 years and older: <900 pg/mL (Negative predictive value= 92%) Rule out cutpoint, all ages: <300 pg/mL (Negative predictive value= 99%) Blood 08/27/2014 11:4 5 PM PERSONAL INJURY LEGAL ASSISTANT 08/27/2014 11:47 PM PERSONAL INJURY LEGAL ASSISTANT [facility] CHEMISTRY ORDERABLES [employer] [facility]# [id number] [address] [place] [address] * (ABNORMAL) COMPREHENSIVE METABOLIC PANEL (08/27/2014 11:45 PM PERSONAL INJURY LEGAL ASSISTANT) SODIUM 143 136 - 145 mmol/L [facility] POTASSIUM 3.6 3.5 - 5.0 mmol/L [facility] CHLORIDE 104 98 - 107 mmol/L [facility] CO2 29 22 - 29 mmol/L [facility] CALCIUM 9.5 8.6 - 10.2 mg/dL [facility] BUN 13 6 - 20 mg/dL [facility] CREATININE 1.00 0.67 - 1.17 mg/dL [facility] GLUCOSE 98 79 - 99 mg/dL [facility] TOTAL PROTEIN 8.2 6.7 - 8.6 g/dL [facility] ALBUMIN 4.4 3.5 - 5.2 g/dL [facility] BILIRUBIN TOTAL 0.9 0.3 - 1.2 mg/dL [facility] ALKALINE PHOSPHATASE 67 40 - 129 U/L [facility] AST 33 <=40 U/L [facility] ALT 42(H) <=41 U/L [facility] GFR, >60 >=60 mL/min/1.7 sq meter [facility] GFR >60 >=60 mL/min/1.7 sq meter [facility] Comment: eGFR has not been validated for [...] on National Kidney Disease Education Program. Blood 08/27/2014 11:4 5 PM PERSONAL INJURY LEGAL ASSISTANT 08/27/2014 11:47 PM PERSONAL INJURY LEGAL ASSISTANT Ian Gauthier DO CHEMISTRY ORDERABLES [facility] CLIA# [id number] [address] [facility] [place] [address] * CARDIAC ENZYMES (08/27/2014 11:45 PM PERSONAL INJURY LEGAL ASSISTANT) Pathologist [facility] TROPONIN T <0.01 <=0.03 ng/mL [facility] TROPONIN T INTERP Negative [facility] Blood 08/27/2014 11:4 5 PM PERSONAL INJURY LEGAL ASSISTANT 08/27/2014 11:47 PM PERSONAL INJURY LEGAL ASSISTANT Ian Gauthier DO CHEMISTRY ORDERABLES [facility] CLIA# [id number] [address], [place] [address] * (ABNORMAL) SEDIMENTATION RATE (08/27/2014 11:45 PM PERSONAL INJURY LEGAL ASSISTANT) Pathologist [facility] ESR (SEDIMENTATION RATE) 17(H) 0 - 15 mm/hr [facility] Blood 08/27/2014 11:4 5 PM PERSONAL INJURY LEGAL ASSISTANT 08/27/2014 11:47 PM PERSONAL INJURY LEGAL ASSISTANT Ian Gauthier DO HEMATOLOGY ORDERABLE S [facility] CLIA# [id number] [address] [place] [address] * (ABNORMAL) CBC WITH DIFFERENTIAL (08/27/2014 11:45 PM PERSONAL INJURY LEGAL ASSISTANT) Pathologist [facility] WBC 6.8 4.0 - 9.8 K/uL [facility] RBC 5.65(H) 4.50 - 5.40 M/uL [facility] HEMOGLOBIN 13.1(L) 13.6 - 16.5 g/dL [facility] HEMATOCRIT 41.0 40.0 - 48.0 % [facility] MCV 72.6(L) 82.0 - 99.0 fL [facility] MCH 23.2(L) 27.2 - 32.6 pg [facility] MCHC 32.0 31.5 - 35.5 % [facility] PLATELETS 182 140 - 350 K/uL [facility] MPV 9.5 9.3 - 12.4 fL [facility] RDW 16.1(H) 11.5 - 14.5 % [facility] RDW-STDEV 41.2 37.1 - 48.7 fL [facility] NEUTROPHILS 63 45 - 70 % [facility] LYMPHOCYTES 28 16 - 45 % [facility] MONOCYTES 7 3 - 13 % [facility] EOSINOPHILS 1 0 - 7 % [facility] BASOPHILS 0 0 - 2 % [facility] NEUTROPHIL ABSOLUTE 4.35 1.90 - 7.00 K/uL [facility] LYMPHOCYTE ABSOLUTE 1.95 0.70 - 4.50 K/uL [facility] MONOCYTE ABSOLUTE 0.45 0.10 - 1.30 K/uL [facility] EOSINOPHIL ABSOLUTE 0.08 0.00 - 0.70 K/uL [facility] BASOPHILS ABSOLUTE 0.02 0.00 - 0.20 K/uL [facility] Blood 08/27/2014 11:4 5 PM PERSONAL INJURY LEGAL ASSISTANT 08/27/2014 11:47 PM PERSONAL INJURY LEGAL ASSISTANT Ian Gauthier HEMATOLOGY ORDERABLE S [employer] [facility]# [id number] [address] [place] [address] documented in this encounter Visit Diagnoses Diagnosis Numbness- Primary Disturbance of skin sensation Chest pain Chest pain, unspecified Cervical stenosis of spinal canal Spinal stenosis in cervical region Blurry vision, bilateral Other specified visual disturbances Cervical stenosis of spinal canal Spinal stenosis in cervical region Costochondral chest pain Painful respiration Paresthesias with subjective weakness Disturbance of skin sensation PTSD (post-traumatic stress disorder) Posttraumatic stress disorder GERD (gastroesophageal reflux disease) Esophageal reflux Diabetes mellitus type 2, controlled, without complications Blurry vision, bilateral Other specified visual disturbances documented in this encounter Administered Medications Inactive Administered Medications - up to 3 most recent administrations Medication Order MAR Action Action Date Dose Rate Site ALPRAZolam (XANAX) tablet 2 mg 2 mg, Oral, ONE TIME ONLY, 1 dose, On Tu08/28/14 at 0245, Routine Given 08/28/2014 2:38 AM PERSONAL INJURY LEGAL ASSISTANT 2 mg documented in this encounter Active and Recently Administered Medications Times are shown in PERSONAL INJURY LEGAL ASSISTANT. Scheduled Medication Order 08/26/2014 08/27/2014 08/28/2014 ALPRAZolam (XANAX) tablet 2 mg (COMPLETED) 2 mg, Oral, ONE TIME ONLY, 1 dose, On Wed08/28/14 at 0245, Routine 0238 (Given - Provid er: Fadi Weiner RN) documented in this encounter
--- OUTSIDE RECORDS SUMMARY | 2024-09-10 04:21 | XMS_ITS | Encounter Summary ---
Author Organization [employer] Address [address] [place] [address] Care Team Providers Care Pharmacist Manager Name Role Phone Primitivo Zhang MD Primary Care Provider Reason for Visit * Reason Comments Headache Pt states for the pa st few days has had elevated blood pressure and headaches. Pt was seen by PCP last week and given prescription for blood pressure medication but has not started it yet. Last Excedrin at 1400. * Auth/Cert Specialty Diagnoses / Procedures Referred By Redd t Referred To Contact Emergency Medicine [facility] Emergency Dept [address] [place] [address] Referral ID Status Reason Start Date Expiration Date Visits Re quested Visits Authorized [id number] 1 1 Encounter Details Date Type Department Care Team (Late st Contact Info) Description 08/23/2015 11:29 PM CAMP ADVISOR - 08/24/2015 12:54 AM [facility] Emergency [facility] Emergency Department [address] [place] [address] Carlos Hanson MD [facility] [place] [address] Headache, unspecified headache type (Primary Dx); Benign hypertension Discharge Disposition: Home or Self Care Social [...] Sign Reading Time Taken Comments Blood Pressure 156/86 08/24/2015 12:00 AM CAMP ADVISOR Pulse 37 08/24/2015 12:00 AM CAMP ADVISOR Temperature 36.5 ??C (97.7 ??F) 08/23/2015 8:52 PM CS T Respiratory Rate 18 08/23/2015 8:52 PM CAMP ADVISOR Oxygen Saturation 95% 08/24/2015 12:00 AM CAMP ADVISOR Inhaled Oxygen Concentration - - Weight 136.1 kg (300 lb) 08/23/2015 8:52 PM CAMP ADVISOR Height 188 cm (6' 2 ) 08/23/2015 8:52 PM CAMP ADVISOR Body Mass Index 38.52 08/23/2015 8:52 PM CAMP ADVISOR documented in this encounter Discharge Instructions * Attachments The following attachments cannot be sent through Care Everywhere. * HEADACHE (JAPANESE) documented in this encounter Medications at Time of Discharge Medication Sig Dispensed Refills Start Date End Date albuterol 90 mcg/Actuation HFA inhaler Take 2 Puffs by inhalation every 6 hours as needed for Shortness of Breath. acetaminophen-caffeine -butalbital (FIORICET) 325-40-50 mg tablet Take 1 Tablet by mouth every 4 hours as needed for Migraine. 12 Tablet None 08/24/2015 12/03/2015 acetaminophen-caffeine -butalbital (FIORICET) 325-40-50 mg tablet Take 1 Tablet by mouth every 4 hours as needed for Migraine. 20 Tablet None 08/24/2015 12/03/2015 metroNIDAZOLE (FLAGYL) 500 mg tablet Take 1 Tablet (500 mg) by mouth 3 times daily. 15 Tablet None 07/24/2015 12/03/2015 ciprofloxacin HCl (CIPRO) 500 mg tablet Take 1 Tablet (500 mg) by mouth 2 times daily. 10 Tablet None 07/24/2015 12/03/2015 MOMETASONE/FORMOTEROL (DULERA INHALATION)Indications :allergies Take 2 Puffs [...] as of this encounter ED Notes * Carlos Hanson MD - 08/24/2015 1:57 AM CST Images from the original note were not included. Emergency Department Attending Physician Note History of Present Illness Primary Care Doctor: Primitivo Yen MD Documented Triage Chief Complaint: Headache Carlos Kelly is a 45 y.o. male who presents with multiple complaints: Headache - intermittent for several months - is tangential on his explanation for his headaches. States had hx/o 'known' 6 concussions in the past, also hx/o chronic neck pain, states headache more in the front - some sinus or nasal congestion, no fever, also ear pain, more on the left ear. No blurry vision, no diplopia, no neck stiffness. BP - states has been checking his BP regularly and has been in the 160-180s, was seen by PCP last week and was placed on metoprolol 100mg daily - states he filled it and has not started taking it. Patient also talked about muscle twitching, abdominal pain, thinking it was a possible stroke, increased anxiety, allergic reactions. Onset: gradual Severity: mild Duration: several months Frequency/Progression: intermittent Quality: none Radiation: none Modifiers: none Associated symptoms: see above Patient information was obtained from primarily from the patient, History/Exam limitations: None Relevant Medical History Past Medical History: Past Medical History Diagnosis Date ??? Depression anxiety ??? Anxiety ??? Panic attacks ??? Diverticulitis ??? Diabetes ??? HTN (hypertension) ??? Chronic neck pain Past Surgical History: Past Surgical History Procedure Laterality Date ??? Chg removal gallbladder ??? Hx cholecystectomy Home Medications: Discharge Medication List as of 08/24/2015 12:20 AM START taking these medications Details rizezfdwprsar-teoeggcb-cojipznitk (FIORICET) 325-40-50 mg tablet Take 1 Tablet by mouth every 4 hours as needed for Migraine., Disp-12 Tablet, R-None CONTINUE these medications which have NOT CHANGED Details metroNIDAZOLE (FLAGYL) 500 mg tablet Take 1 Tablet (500 mg) by mouth 3 times daily., Disp-15 Tablet, R-None ciprofloxacin HCl (CIPRO) 500 mg tablet Take 1 Tablet (500 mg) by mouth 2 times daily., Disp-10 Tablet, R-None MOMETASONE/FORMOTEROL (DULERA INHALATION) Take 2 Puffs by inhalation every 12 hours . acetaminophen (TYLENOL) 325 mg tablet Take 650 mg by mouth. ranitidine (ZANTAC) 150 mg tablet Take 150 mg by mouth daily . ALPRAZolam (XANAX) 2 mg tablet Take 1 Tablet (2 mg) by mouth 3 times daily as needed for Anxiety., Disp-60 Tablet, R-0 hyoscyamine 0.125 mg Tablet, Sublingual Place 0.125 mg under tongue every 6 hours as needed for Spasm . omeprazole (PRILOSEC) 40 mg Capsule, Delayed Release(E.C.) Take 1 Cap (40 mg) by mouth daily., Disp-30 Cap, R-None albuterol 90 mcg/Actuation HFA inhaler Take 2 Puffs by inhalation every 6 hours as needed for Shortness of Breath. fluticasone (FLONASE) 50 mcg/spray Both Nostril SpSn Administer 2 Sprays in each nostril daily . promethazine (PHENERGAN) 25 mg Oral tablet Take 25 mg by mouth every 6 hours as needed for Nausea/Emesis . Allergies: Bactrim; Contrast; Levaquin; Lidocaine; Morphine; Paxil; [...] additional ROS Constitutional: No Fever, No chills ENT: No rhinorrhea, No sore throat Eyes: No vision change, no photophobia Respiratory: No cough, No dyspnea Cardiac: No chest pain, No palpitations GI: No abdominal pain, no nausea, no vomiting, no diarrhea : No dysuria, no hematuria Musculoskeletal: No joint pain, no muscle aches Skin: No rash Heme: No spontaneous bleeding, no bruising Neuro: No weakness, + headache, no numbness/tingling, no difficulty walking Psych: No hallucinations, no acute change in mood Physical Exam BP: 156/86 mmHg (08/24/15 0000), Pulse: (!) 37 (08/24/15 0000), Resp: 18 (08/23/152051), Temp: 97.7 ??F (36.5 ??C) (08/23/152051), Temp src: Oral (08/23/152051) General: Alert, no obvious distress, HEENT: Normocephalic, atraumatic, Throat clear, no erythema or swelling, Nose without drainage, mucous membranes moist, Neck: No tenderness Back: No tenderness Chest Wall: No tenderness, injury or deformity Heart: RRR without Murmur Lungs: CTA = Bilat Abdomen: Soft, nontender, normal bowel sounds Rectal: Not performed Extremities: [...] Sinus Rhythm, no arrhythmia Ventricular Rate: 93 Initial Electrocardiogram (independent interpretation by Thanh Hanson MD): Normal sinus rhythm, ventricular rate (bpm) 86 [place]: normal. ??AR and QRS intervals: normal ST segments: No acute ST elevation or depression noted Compared to old ECG dated : no change Imaging (all imaging was independently reviewed by me): No orders to display Lab: (Reviewed by me), Significant for: Medical Decision Making and ED Course Initial Evaluation: 45 y.o. male who presents with multiple symptoms. With reviewing triage note/vitals as well as initial encounter with patient and exam, I had considered at least at one time in the differential: viral syndrome, sinus headache, tension headache, hypertension. I reviewed prior records and noted multiple previous CT scans including CT brain, MRI brain, MRI cervical spine. Initial blood work and imaging included: none. Medications given initially were: none. Updates Well appearing, neuro intact. Had 15-20 minute conversation with patient - no distress, no slurred speech - BP in the 150s in the ED. Patient has been prescribed BP medication, though was hesitant tostart. Patient reassured on exam, likely tension headache vs anxiety. Recommended starting BP medication. Patient not happy with PCP. Made referrals for new PCP and neurologist for his chronic headaches. Low suspicion for SAH, meningitis, ICH, stroke, electrolyte issue. Medications Given None Amount and/or Complexity of Data Reviewed --Triage notes reviewed, reviewed nurses noted as well. --Clinical lab tests: ordered and reviewed --Independent visualization of images, tracings, or specimens (including EKGs): yes --Previous electrocardiograms reviewed: yes --Review and summarize past medical records: yes --Discuss the patient with other providers: no Critical Care / Procedures No procedures done during this visit. No critical care time was provided for the patient. Final Disposition / Summary Summary 45 y.o. male who presented with multiple symptoms, mainly concerned about BP and headaches. Well appearing, neuro exam, likely tension headache with chronic hypertension. Told to take his medication,will have close f/u with PCP and given referral for neurologist. 0054: I updated the patient on findings, diagnosis, [...] time counseling the patient on their diagnosis, findings , results, and plan including strict return to ER instructions for this diagnosis and mandatory follow up. Vitals at Discharge: BP 156/86 mmHg Pulse 37 Temp(Src) 97.7 ??F (36.5 ??C) (Oral) Resp 18 Ht 6' 2 (1.88 m) Wt 136.079 kg BMI 38.50 kg/m2 SpO2 95% New Prescriptions: Discharge Medication List as of 08/24/2015 12:20 AM START taking these medications Details ssfuhmajlscsy-meptmrdq-vxcsyvceam (FIORICET) 325-40-50 mg tablet Take 1 Tablet by mouth every 4 hours as needed for Migraine., Disp-12 Tablet, R-None CONTINUE these medications which have NOT CHANGED Details metroNIDAZOLE (FLAGYL) 500 mg tablet Take 1 Tablet (500 mg) by mouth 3 times daily., Disp-15 Tablet, R-None ciprofloxacin HCl (CIPRO) 500 mg tablet Take 1 Tablet (500 mg) by mouth 2 times daily., Disp-10 Tablet, R-None MOMETASONE/FORMOTEROL (DULERA INHALATION) Take 2 Puffs by inhalation every 12 hours . acetaminophen (TYLENOL) 325 mg tablet Take 650 mg by mouth. ranitidine (ZANTAC) 150 mg tablet Take 150 mg by mouth daily . ALPRAZolam (XANAX) 2 mg tablet Take 1 Tablet (2 mg) by mouth 3 times daily as needed for Anxiety., Disp-60 Tablet, R-0 hyoscyamine 0.125 mg Tablet, Sublingual Place 0.125 mg under tongue every 6 hours as needed for Spasm . omeprazole (PRILOSEC) 40 mg Capsule, Delayed Release(E.C.) Take 1 Cap (40 mg) by mouth daily., Disp-30 Cap, R-None albuterol 90 mcg/Actuation HFA inhaler Take 2 Puffs by inhalation every 6 hours as needed for Shortness of Breath. fluticasone (FLONASE) 50 mcg/spray Both Nostril SpSn Administer 2 Sprays in each nostril daily . promethazine (PHENERGAN) 25 mg Oral tablet Take 25 mg by mouth every 6 hours as needed for Nausea/Emesis . Follow Up: [facility], PHYSICIAN REFERRAL LINE [phone] Michelle Costello MD [address] [place] [phone] Schedule an appointment as soon as possible for a visit in 1 week Diagnosis: Encounter Diagnoses Code Name Primary? R51 Headache, unspecified headache type Yes ??? I10 Benign hypertension Disposition: Discharge Carlos Hanson MD, 08/24/2015 2:05 AM ADVISOR * Augusto Donnelly RN - 08/24/2015 12:54 AM CST Patient discharged to home via ambulation with family. Discharge information, including an overviewof treatment received, after-visit instructions, and recommendation for follow-up care provided to patient. Questions answered, understanding of discharge instruction verbalized. Printed copy given to patient ADVISOR * Augusto Donnelly RN - 08/23/2015 11:44 PM CST Pt to ED c/o RUSSO and hypertension for a few days Pt seen at PCP office, prescribed blood pressure medication but states he hasnt started it yet. Pt usually takes excedrin for RUSSO, but states its onlybeen giving him minimal relief. Pt denies n/v/d. Moves all extremities with ease, breaths even and u nlabored, clear speech, no facial droop noted. Denies photophobia. Pt says he was seen at chiropractor office today and had neck adjusted. Pt says he really got me good today Pt denies neck discomfort or associated numbness/tingling to extremities. Pt A&Ox4, skin PWD. Placed on monitor, call light in reach. Will continue to monitor. ADVISOR * Rosmery Singh RN - 08/23/2015 9:39 PM CST Pt c/o chest pain, ekg ordered at this time. ADVISOR documented in this encounter Plan of Treatment Not on file documented as of this encounter Procedures Procedure Name Priority Date/Time Associated Diagnosis Comments EKG 12-LEAD Stat 08/23/2015 9:47 PM CAMP ADVISOR documented in this encounter Results * EKG 12-LEAD (08/23/2015 9:47 PM CAMP ADVISOR) 08/23/2015 9:47 PM CAMP ADVISOR Narrative INTERFACE SYSTEM - 08/24/2015 12:18 PM CAMP ADVISOR ? Stationary ECG Study ? [facility] ? Test Date: ?08/23/2015 9:47 PM Pat Name: ? VINCENT CORPUS ? Department: ?? 15 ?Room: ? Gender: ? 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 strobn : ?1970 ? Requested By: ?? Order Number: [id number] ?Reading MD: ?? Leonard Fidelina ? Measurements Intervals ?[place] ? Rate: ? 86 ? P: ?-6 AR: ? 132 ?QRS: ?38 QRSD: ? 106 ?T: ?2 QT: ? 355 ? QTc: ?427 ? Interpretive Statements ? 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: nano : 1970 Requested By: Order Number: [id number] Reading MD: Leonard Kitchen Measurements Intervals [place] Rate: 86 P: -6 AR: 132 QRS: 38 QRSD: 106 T: 2 QT: 355 QTc: 427 Interpretive Statements SINUS RHYTHM Electronically Signed On 08-24-2015 12:18:06 CAMP ADVISOR by Leonard Kitchen Carlos Hanson MD ECG ORDERABLES Performing Organization Address City/State/[facility] Co de Phone Number INTERFACE SYSTEM Refer to clinic/hospital department documented in this encounter Visit Diagnoses Diagnosis Headache, unspecified headache type- Primary Benign hypertension Essential hypertension, benign documented in this encounter Care Teams Pharmacist Manager Relationship Specialty Start Date End Date Primitivo Zhang MD PCP - General Emergency Medicine 07/02/15 11/25/15 documented as of this encounter
--- OUTSIDE RECORDS SUMMARY | 2024-09-10 04:21 | XMS_ITS | Encounter Summary ---
Author Organization [facility] Address [address] [place] [address] Care Team Providers Care Credit Risk Specialist Name Role Phone Primitivo Zhang MD Primary Care Provider Reason for Visit * Reason Comments Shortness of Breath Pt here for rib pain and shortness of breath for last 4 days. pt states seen fast food sales assistant and started om inhaler and singulair. * Auth/Cert Specialty Diagnoses / Procedures Referred By Redd t Referred To Contact Emergency Medicine [facility] [[email or web address] Emergency Dept [address] [place] [address] Referral ID Status Reason Start Date Expiration Date Visits Re quested Visits Authorized [id number] 1 1 Encounter Details Date Type Department Care Team (Late st Contact Info) Description 07/02/2015 1:23 AM CDT - 07/02/2015 6:02 PM CDT Emergency [facility] Oncology [address] [place] [address] Denice Taylor MD [address] [facility] [place] [address] Lea Gutierrez MD NO ADDRESS ON FILE Sarwat Mcfadden MD [address] [place] [address] Pleuritic chest pain Discharge Disposition: Home or Self Care [...] Sign Reading Time Taken Comments Blood Pressure 134/78 07/02/2015 7:00 AM CDT Pulse 82 07/02/2015 12:32 PM CDT Temperature 36.6 ??C (97.8 ??F) 07/02/2015 12:32 PM C DT Respiratory Rate 18 07/02/2015 12:32 PM CDT Oxygen Saturation 98% 07/02/2015 12:32 PM CDT Inhaled Oxygen Concentration - - Weight 137 kg (302 lb) 07/02/2015 7:00 AM CDT Height 188 cm (6' 2 ) 07/02/2015 7:00 AM CDT Body Mass Index 38.77 07/02/2015 7:00 AM CDT documented in this encounter Discharge Summaries * Sarwat Mcfadden MD - 07/02/2015 2:17 PM CDT [facility] Adult Hospitalist Discharge Summary Carlos Kelly 45 y.o. male 1970 CSN: [id number] Date of Admission: 07/02/2015 Date of Discharge: 07/02/2015 Discharging Physician: Sarwat Mcfadden MD LOS: 0 days PCP: Primitivo Yen MD (General) Activity: activity as tolerated. Dispo: home Diet: DIET DIABETIC 1800 KCAL, Code Status at Discharge: Full Code Wound Care: None needed Admitting Dx: <principal problem not specified> Discharge Diagnoses: Active Problems: GERD (gastroesophageal reflux disease) Diabetes mellitus type 2, controlled, without complications Pleuritic chest pain Depression with anxiety Microcytic anemia SOB (shortness of breath) Discharge medications and new prescriptions: Medication List START taking these medications ferrous sulfate 325 mg (65 mg iron) tablet Commonly known as: FEOSOL Take 1 Tablet (325 mg) by mouth 2 times daily. Stop taking on: 08/01/2015 Signed by: Sarwat Mcfadden Quantity: 60 Tablet Refills: 0 CONTINUE taking these medications acetaminophen 325 mg tablet Commonly known as: TYLENOL Take 650 mg by mouth. Refills: 0 albuterol sulfate 90 mcg/Actuation inhaler Take 2 Puffs by inhalation every 6 hours as needed for Shortness of Breath. Signed by: Jayce Torrez Refills: 0 ALPRAZolam 2 mg tablet Commonly known as: XANAX Take 1 Tablet (2 mg) by mouth 3 times daily as needed for Anxiety. Signed by: Sarwat Mcfadden Quantity: 60 Tablet Refills: 0 Indications of Use: POST TRAUMATIC STRESS DISORDER DULERA INHALATION Take 2 Puffs by inhalation every 12 hours . Signed by: Jayce Torrez Refills: 0 Indications of Use: allergies fluticasone 50 mcg/spray [place], Suspension Commonly known as: FLONASE Administer 2 Sprays in each nostril daily . Signed by: Jayce Torrez Refills: 0 Indications of Use: ALLERGIC RHINITIS PREVENTION hyoscyamine 0.125 mg Tablet, Sublingual Commonly known as: LEVSIN Place 0.125 mg under tongue every 6 hours as needed for Spasm . Refills: 0 Indications of Use: IRRITABLE BOWEL SYNDROME ibuprofen 400 mg tablet Commonly known as: MOTRIN Take 2 Tablet (800 mg) by mouth every 8 hours as needed for Pain, Mild. Stop taking on: 07/12/2015 Signed by: Sarwat Mcfadden Quantity: 30 Tablet Refills: None omeprazole 40 mg Capsule, Delayed Release(E.C.) Commonly known as: PRILOSEC Take 1 Cap (40 mg) by mouth daily. Signed by: Carlos Hanson Quantity: 30 Cap Refills: None promethazine 25 mg tablet Commonly known as: PHENERGAN Take 25 mg by mouth every 6 hours as needed for Nausea/Emesis . Refills: 0 ranitidine 150 mg tablet Commonly known as: ZANTAC Take 150 mg by mouth daily . Refills: 0 Indications of Use: GASTROESOPHAGEAL REFLUX STOP taking these medications meclizine 25 mg tablet Commonly known as: ANTIVERT ondansetron 4 mg Tablet Commonly known as: ZOFRAN Where to Get Your Medications Information on where to get these meds is not yet available. Ask your nurse or doctor. - ALPRAZolam 2 mg tablet - ferrous sulfate 325 mg (65 mg iron) tablet - ibuprofen 400 mg tablet Consultants: None Significant Diagnostic Studies This Admission: ?? NM Lung perfusion Scan ?? CXR Labs from this Hospitalization Needing Follow Up: ?? A1C Discharge Lab Data: Lab Results Component Value Date/Time WBC 6.2 07/02/2015 02:10 AM WBC 5.8 11/10/2014 06:40 AM HEMOGLOBIN 11.5* 07/02/2015 02:10 AM HEMOGLOBIN 13.3* 11/10/2014 06:40 AM HEMATOCRIT 37.4* 07/02/2015 02:10 AM HEMATOCRIT 42.8 11/10/2014 06:40 AM PLATELETS 170 07/02/2015 02:10 AM PLATELETS 190 11/10/2014 06:40 AM SODIUM 141 07/02/2015 02:10 AM SODIUM 139 11/10/2014 06:40 AM CHLORIDE 101 07/02/2015 02:10 AM CHLORIDE 100 11/10/2014 06:40 AM POTASSIUM 3.4* 07/02/2015 02:10 AM POTASSIUM 3.5 11/10/2014 06:40 AM CO2 27 07/02/2015 02:10 AM CO2 26 11/10/2014 06:40 AM BUN 13 07/02/2015 02:10 AM BUN 6 11/10/2014 06:40 AM CREATININE 0.92 07/02/2015 02:10 AM CREATININE 1.08 11/10/2014 06:40 AM POC CREATININE 0.90 07/02/2015 02:29 AM GLUCOSE 145* 07/02/2015 02:10 AM GLUCOSE 87 11/10/2014 06:40 AM AST 27 07/02/2015 02:10 AM AST 46* 11/10/2014 06:40 AM ALT 36 07/02/2015 02:10 AM ALT 54* 11/10/2014 06:40 AM CRP 5.1 03/03/2015 10:55 PM CRP 1.4* 11/08/2014 02:38 AM Discharge Exam: BP 134/78 mmHg Pulse 82 Temp(Src) 97.8 ??F (36.6 ??C) (Oral) Resp 18 Ht 6' 2 (1.88 m) Wt302 lb (136.986 kg) BMI 38.76 kg/m2 SpO2 98% Physical Exam: General appearance alert, cooperative, no distress, appears stated age Lungs clear to auscultation bilaterally Heart regular rate and rhythm, S1, S2 normal, no murmur, click, rub or gallop Abdomen soft, non-tender. Bowel sounds normal. No masses, No organomegaly Extremities extremities normal, atraumatic, no cyanosis or edema Skin Skin color, texture, turgor normal. No rashes or lesions Hospital Course: ?? 45 yo M with above mentioned co-morbidities presented for evaluation of SOB and pleuritic chest pain. Pt remained afebrile and without significant derangements in VS during his hospital stay. Pt d-dimer was negative and Wells criteria low probability for PE. NM lung perfusion scan ordered of which was very low probability for PE. Cardiac enzymes were negative and no significant ischemic changes noted on EKG. Suspect that pt current respiratory states likely 2/2 to obesity hypoventilation syndrome. Pt reports he has follow up scheduled with a forest law and policy professor on 07/16/2015. I have encouraged the pt to restart his inhaler medications at the very least and to follow up with Inspector Mechanical for further PFTs and sleep study. Pt additionally reports having been out of his anti-anxiety medications at this time and being between psychiatric doctors. I have supplied him with enough anti-anxiety medication to last him till his scheduled follow up on 07/24/2015. I explained the the patient that he is mildly anemic and questioned whether he had ever had a coloscopy. He corroborates that he has hada colonscopy before and that everything was normal. I have started the patient on Ferrous Sulfate and have encouraged him to follow up both with PCP and prior GI physician for further evaluation. Pt verbalizes that he understands all that we have discussed as well as the importance of compliance with medications as well as close follow up with physicians Discharge Condition: stable. Follow-up: Primitivo Yen MD (General) in 1 week(s). More than 30 minutes minutes were spent in this discharge activity. Signed: Sarwat Mcfadden MD 07/02/2015, 2:17 PM documented in this encounter Discharge Instructions * Discharge Instructions* Sarwat Mcfadden MD - 07/02/2015 8:50 PM CDT Your discharging physician is Sarwat Mcfadden MD and may be reached at for any questions or concerns until you see your doctor. FOLLOW-UP Follow up with Primitivo Yen MD (General) in 1 week(s). Prescriptions given? Yes Heart Patients: Weigh yourself everyday at the same time, with the same amount of clothing and after you have emptied your bladder. Keep a log of your daily weights and bring them with you to your physician appointments. Call your physician (*) if you have a weight gain of 3 pounds in one day (or 5pounds in 2 or more days) or (*) if you have increased shortness of breath or (*) if you have swelling in your feet, belly or legs. <<<Call 911 or go to the nearest emergency room if you have increased shortness of breath or chest pain or discomfort that is not relieved by nitroglycerin. Smoking Exposure: [facility] encourages all patients to decrease risks associated with smoking and second hand smoke exposure. If you smoke you are advised to quit. Ask your health care provider for advice if you need assistance to stop smoking. Avoid second-hand smoke exposure and do not let people smoke in your home. Please call [phone], our pulmonary rehabilitation department, to learn more about options to reduce your risks. ACTIVITY Your activity level is: increase activity as tolerated and no smoking. DIET Your diet is regular documented in this encounter Medications at Time of Discharge Medication Sig Dispensed Refills Start Date End Date albuterol 90 mcg/Actuation HFA inhaler Take 2 Puffs by inhalation every 6 hours as needed for Shortness of Breath. ibuprofen (MOTRIN) 400 mg tablet Take 2 Tablet (800 mg) by mouth every 8 hours as needed for Pain, Mild. 30 Tablet None 07/02/2015 07/12/2015 ferrous sulfate (FEOSOL) 325 mg (65 mg [...] of this encounter Progress Notes * Nav Oconnell, RN - 07/02/2015 4:14 PM CDT Discharged to home. PIV removed and site covered. Scripts given to pt with instructions and questions answered. Pt strongly advised to follow up with doctors advised by Dr. Mcfadden, pt stated understanding. Refused w/c and walked to exit documented in this encounter H&P Notes * Iwona Arteaga APN - 07/02/2015 9:45 AM CDT [facility] Adult Hospitalist H&P Patient Name: Carlos Kelly Courtesy Copy PCP: Primitivo Yen MD (General) Date of Admission: 07/02/2015 Date of Service: 07/02/2015 CC: I have rib pain and shortness of breath. HPI: Patient is a 45 y.o. male who presents with bilateral inframammary region rib pain and SOB. According to the pt the bilateral rib pain has been present for the last 1.5 months; he reports at onset he was diagnosed with pleurisy . He does not recall any specific treatments or medications that were prescribed at the time of diagnosis. Over the last 1.5 weeks he reports feeling progressively more SOB but no change in the bilateral rib pain. The intermittent SOB is ill defined by thept. He reports he will be awoken from sleep feeling SOB but will be able to go back to sleep w/o intervention or without needing to get OOB or sit up. He reports an occasional mild cough that produces thick clear sputum which he reports is normal for him. He denies fever, chills diaphoresis, wheezing, orthopnea or LE edema. He reports he felt palpitations briefly while in the ED. He has been dizzy in the last week and took meclizine which is prescribed for his vertigo and it resolved. He has had nausea w/o emesis in the last week and took promethazine which is prescribed for his chronic nausea and it resolved. He has never been diagnosed with a pulmonary disease, such as COPD or asthma. He has no personal VTE hx, but reports his father has blood clots and several strokes. Aproximately 2.5 weeks ago his Search Engine Optimization Consultant Dr Oneill initiated a medication regimen that included Dulera, Flonase, albuterol, montelukast and prednisone. He stopped taking the montelukast, which he was taking in the [facility], because it kept me up. He stopped taking the prednisone because it was causing too much anxiety. He tells me that he doesn't have enough Xanax at home to resume taking the prednisone. He reports that he refused to take the enoxaparin in the ED because I don't trust that doctor and .... If it was Tambone it would have been better . He has just returned from his VQ scan and reports that he does not feel right since having the agent for the test administered. His friend at bedside is searching on the internet for the name of the agent and associated SE. He will be admitted for further evaluation and treatment. PMHx: Past Medical History Diagnosis Date ??? Depression anxiety ??? Anxiety ??? Panic attacks ??? Diverticulitis ??? Diabetes PSurgHx: Past Surgical History Procedure Laterality Date ??? Chg removal gallbladder ??? Hx cholecystectomy Outpatient Medications: Prescriptions prior to admission Medication Sig Dispense Refill Last Dose ??? MOMETASONE/FORMOTEROL (DULERA INHALATION) Take 2 Puffs by inhalation every 12 hours . 07/01/2015 at Unknown time ??? acetaminophen (TYLENOL) 325 mg tablet Take 650 mg by mouth. Past Week at Unknown time ??? meclizine (ANTIVERT) 25 mg tablet Take 25 mg by mouth 3 times daily as needed for Dizziness . Past Week at Unknown time ??? ranitidine (ZANTAC) 150 mg tablet Take 150 mg by mouth daily . 07/02/2015 at Unknown time ??? ondansetron (ZOFRAN) 4 mg Tablet Take 4 mg by mouth every 6 hours as needed for Nausea/Emesis. Past Month at Unknown time ??? ibuprofen (MOTRIN) 400 mg tablet Take 2 Tablet (800 mg) by mouth every 8 hours as needed for Pain, Mild. 30 Tablet None Past Week at Unknown time ??? hyoscyamine 0.125 mg Tablet, Sublingual Place 0.125 mg under tongue every 6 hours as needed forSpasm . 07/01/2015 at Unknown time ??? omeprazole (PRILOSEC) 40 mg Capsule, Delayed Release(E.C.) Take 1 Cap (40 mg) by mouth daily. (Patient taking differently: Take 40 mg by mouth daily . ) 30 Cap None 07/02/2015 at Unknown time ??? ALPRAZolam (XANAX) 2 mg tablet Take 1 Tab (2 mg) by mouth 3 times daily as needed for Anxiety. (Patient taking differently: Take 2 mg by mouth 3 times daily as needed for Anxiety . ) 30 Tab 0 Past Week at Unknown time ??? albuterol 90 mcg/Actuation HFA inhaler Take 2 Puffs by inhalation every 6 hours as needed for Shortness of Breath. 07/01/2015 at Unknown time ??? fluticasone (FLONASE) 50 mcg/spray Both Nostril SpSn Administer 2 Sprays in each nostril daily . 07/01/2015 at Unknown time ??? promethazine (PHENERGAN) 25 mg Oral tablet Take 25 mg by mouth every 6 hours as needed for Nausea/Emesis . Past Week at Unknown time ??? [DISCONTINUED] citalopram (CELEXA) 10 mg tablet Take 10 mg by mouth. ??? [DISCONTINUED] sucralfate (CARAFATE) 1 gram tablet Take 1 Tab (1 Gram) by mouth 4 times daily before meals and at bedtime. 12 Tab None ??? [DISCONTINUED] HYDROcodone-acetaminophen (NORCO) 5-325 mg tablet Take 1 Tab by mouth every 4 hours as needed for Pain, Moderate. Max Daily Amount: 6 Tabs 30 Tab None ??? [DISCONTINUED] ondansetron (ZOFRAN ODT) 4 mg Tablet, Rapid Dissolve Place 1 Tab (4 mg) under tongue every 6 hours as needed for Nausea. 20 Tab none 01/07/2015 at 1500 ??? [DISCONTINUED] cyclobenzaprine (FLEXERIL) 5 mg Tablet Take 1 Tab by mouth 3 times daily as needed for Pain or Spasm. 30 Tab 0 Past Week at Unknown time All: Allergies Allergen Reactions ??? Bactrim [Sulfamethoxazole-Trimethoprim] Hives ??? Contrast [Iodinated Contrast Media - Iv Dye] Hives ??? Levaquin [Levofloxacin] Hives ??? Lidocaine Unknown ??? Morphine Hallucination ??? Paxil [Paroxetine Hcl] Anxiety ??? Percocet [Oxycodone-Acetaminophen] Dizziness ??? Sulfa (Sulfonamide Antibiotics) Rash FamHx: Family History Problem Relation Age of Onset ??? Stroke Father ??? Other Father blood clots ??? Diabetes Maternal Grandmother ??? Diabetes Maternal Grandfather SocHx: History Substance Use Topics ??? Smoking status: Never Smoker ??? Smokeless tobacco: Not on file ??? Alcohol Use: No Review of Systems History from the patient General negative for weight changes, fever ENT positive for - nasal congestion and nasal discharge negative for - headaches, sinus pain or sore throat Heme/Lymph negative for swollen glands or abnormal bleeding Endocrine negative for polyuria/polydipsia CV negative for chest pain Respiratory See HPI GI positive for - reflux negative for - abdominal pain, appetite loss, change in bowel habits or swallowing difficulty/pain negative for dysuria, trouble voiding, or hematuria MS negative for back pain, neck pain or joint pain or swelling Neuro negative for TIA or stroke symptoms Derm negative for skin rashes or unusual skin lesions All Other ROS Negative Physical Exam: Patient Vitals for the past 8 hrs: BP Temp Temp src Pulse Resp SpO2 Height Weight 07/02/15 0700 134/78 mmHg 98.5 ??F (36.9 ??C) Oral 87 18 97 % 6' 2 (1.88 m) (!) 302 lb (136.986 kg) 07/02/15 0630 145/77 mmHg - - 82 16 95 % - - 07/02/15 0628 - 98.7 ??F (37.1 ??C) Oral - - - - - 07/02/15 0600 138/87 mmHg - - 88 16 95 % - - 07/02/15 0530 158/78 mmHg - - 87 - 96 % - - 07/02/15 0500 166/83 mmHg - - 82 16 96 % - - 07/02/15 0330 147/85 mmHg - - 86 18 96 % - - No intake or output data in the 24 hours ending 07/02/15 1005 General appearance Pleasant and conversant male, who appears his stated age, lying in bed w/o apparent distress A friend is at bedside Head Normocephalic, without obvious abnormality Eyes conjunctivae/corneas clear. PERRL, EOM's intact Ears Normal external exam Nose Nares normal. Septum midline. No sinus tenderness. Oral Cavity Lips, mucosa, and tongue normal Neck supple, symmetrical Back symmetric, no CVA tenderness Lungs clear to auscultation bilaterally Chest wall no tenderness Heart regular rate and rhythm, no audible murmur/click/rub/gallop Abdomen Non distended, bowel sounds normal, soft, nontender Extremities no pedal edema noted, intact peripheral pulses Skin normal coloration and turgor, no rashes, no suspicious skin lesions noted Neurologic A&Ox4, CN 2 thru 12 grossly intact, CHÁVEZ w/o difficulty Data Base: Results for orders placed or performed during the hospital encounter of 07/02/15 (from the past 24 hour(s)) COMPREHENSIVE METABOLIC PANEL Result Value Ref Range SODIUM 141 136-145 mmol/L POTASSIUM 3.4 (L) 3.5-5.0 mmol/L CHLORIDE 101 98-107 mmol/L CO2 27 22-29 mmol/L CALCIUM 9.1 8.6-10.2 mg/dL BUN 13 6-20 mg/dL CREATININE 0.92 0.67-1.17 mg/dL GLUCOSE 145 (H) 79-99 mg/dL TOTAL PROTEIN 7.3 6.7-8.6 g/dL ALBUMIN 4.1 3.5-5.2 g/dL BILIRUBIN TOTAL 0.7 0.3-1.2 mg/dL ALKALINE PHOSPHATASE 77 40-129 U/L AST 27 <41 U/L ALT 36 <42 U/L GFR >60 >=60 mL/min/1.73 sq meter GFR, >60 >=60 mL/min/1.73 sq meter ANION GAP 13 8-16 mmol/L CBC WITH DIFFERENTIAL Result Value Ref Range WBC 6.2 4.0-9.8 K/uL RBC 5.42 (H) 3.90-4.90 M/uL HEMOGLOBIN 11.5 (L) 13.6-16.5 g/dL HEMATOCRIT 37.4 (L) 40.0-48.0 % MCV 69.0 (L) 82.0-99.0 fL MCH 21.2 (L) 27.2-32.6 pg MCHC 30.7 30.0-36.0 g/dL RDW 17.2 (H) 11.5-14.5 % RDW-STDEV 42.2 37.1-48.7 fL PLATELETS 170 140-350 K/uL MPV 9.2 (L) 9.3-12.4 fL NEUTROPHILS 64 45-70 % LYMPHOCYTES 29 16-45 % MONOCYTES 5 3-13 % EOSINOPHILS 2 <7 % BASOPHILS 0 <3 % NEUTROPHIL ABSOLUTE 3.98 1.90-7.00 K/uL LYMPHOCYTE ABSOLUTE 1.77 0.70-4.50 K/uL MONOCYTE ABSOLUTE 0.33 0.10-1.30 K/uL EOSINOPHIL ABSOLUTE 0.11 <0.70 K/uL BASOPHILS ABSOLUTE 0.02 <0.30 K/uL D-DIMER Result Value Ref Range D-DIMER QUANT 0.39 <0.41 ug/mL FEU TROPONIN Result Value Ref Range TROPONIN T <0.01 <0.04 ng/mL POC CREATININE Result Value Ref Range POC CREATININE 0.90 0.70-1.20 mg/dL GFR >60 >=60 mL/min/1.73 sq meter GFR, >60 >=60 mL/min/1.73 sq meter POC GLUCOSE Result Value Ref Range POC GLUCOSE 115 (H) 79-99 mg/dL COMMENT, GLU POC Notified RN/MD EKG: SR rate 84 with new T wave inversions in inferior leads compared to prior on 05/18/2015 CXR: No PTX/ effusion/ infiltrate. Assessment/Plan: SOB: etiology unclear-- angina vs PE vs other, dimer and trop neg-- will repeat x 1, pt refuses to take enoxaparin at this time despite being educated about standard of care for suspected PE-- low suspicion for VTE but await VQ results, in the interim cont [employer]ED [employer]UC[employer] AIDE inhalers, PRN oxygen Pleuritic chest pain: no recent trauma, reports pain has decreased over time, tests and tx as above Microcytic anemia: pt does not recall being diagnosed with this or any related disorders in the past, add on iron panel Diabetes mellitus type 2, controlled, without complications: pt does not know last Hb A1c value, noPTA medication regimen-- says he is borderline and metformin gave him CP in th past, POC Glucose AC&HS with Lantus HS + aspart for meals and low dose correction, diabetic diet when appropriate GERD: form sub for [employer]UC[employer] AIDE omeprazole + ranitidine IBS: resume [employer]TED PH[employer]ICAL EDUC[employer] AIDE hyoscyamine Chronic nausea: resume [employer] EDUC[employer] AIDE anti-emetics Depression with anxiety: cont [employer] EDUC[employer] AIDE alprazolam, during my interaction with the pt he asked for a discharge prescription for this medication three separate times-- reports he is between Psychiatrists atthis time, has OP appt with Dr Thanh Woodward on Jul 24 VTE Prophylaxis: sequential compression devices, pt refuses enoxaparin Ordoñez: n/a Lines: PIV PT/OT: not indicated [employer]UC[employer] AIDE Meds: reviewed with pt and reconciled in the EHR Code status: Full Code Dispo: Patient's activity prior to admission was no difficulty Discharge will likely be to home in 1-2 days Plan discussed with patient; questions answered; patient agrees with current plan. This pt was discussed with Dr Sarwat Mcfadden and he agrees with the above plan. Neisha Arteaga, MSN, ACNP[facility] Pager: [phone]-- please send a text page via the paging terminal Associated attestation - Sarwat Mcfadden MD - 07/02/2015 8:34 PM CDT Agree with findings. 45 yo M with Hx of blt costochondritis, PTSD presents for evaluation of chronic SOB that has been present for 1.5 months. States was recently seen and evaluated by an fast food sales assistant that prescribed MDI albuterol and inhaled steroids in addition to PO steroids and Singulair. States he has recently stopped taking them cause he doesn't think they are working and reports adverse reaction to Singulair and prednisone stating they cause him increased anxiety. Pt has never been officially evaluated via PFTs nor has any underlying pulmonary disease to speak of. Pt was admitted for evaluation via VQ scan given history of contrast allergy and need for further evaluation of pleuritic chest p ain. PE General - obese male lying in bed in no apparent distress Neck - no jvd no carotid bruit Lung - clear to auscultation blt no rhonci rales or wheezes noted Heart - s1,s2 normal rrr no rub gallop or murmur Abd - soft no ttp non-distended no guarding Ext - no edema no calf ttp A/P Pleuritic Chest Pain - follow up results of VQ scan despite negative D-dimer and low prob as per Wells criteria. Pt had normal Stress test year prior and currently complaint not cardiac in nature. Presently pain well controlled without significant intervention. CXR without significant infiltrates. Microcytic Anemia - agree with iron panel and will follow up results. Reports having had prior normal colonoscopies Borderline DM II - pt reports stopped Metformin as this gave him chest pain. Lantus QHS and slidingscale pre meal coverage. Goal FS 130-180 GERD - cont [employer]UC[employer] AIDE PPI IBS - cont [employer] PH[employer]ICAL EDUCATION AIDE hyooscyamine Depression with Anxiety - CONT [employer]ICAL EDUCATION AIDE Alprazolam has OP appt with Dr Thanh Woodward on Jul 24 Care plan discussed with pt at bedside. Questions answered. Sarwat Mcfadden MD [facility] Hospitalist documented in this encounter ED Notes * Ketty Stover RN - 07/02/2015 6:46 AM CDT Report given to RN. All questions answered. IV fluids infusing upon admission * Ketty Stover RN - 07/02/2015 6:29 AM CDT [place] sandwich and drink provided. Pt has no new complaints. Will continue to monitor * Ketty Stover RN - 07/02/2015 6:04 AM CDT Pt is resting in bed. Breathing is regular and unlabored. Updated on POC-admit. Will continue to monitor * Ketty Stover RN - 07/02/2015 5:40 AM CDT Pt is resting in bed. Breathing is regular and unlabored. Vss. Anxiety has decreased. Will continueto monitor * Ketty Stover RN - 07/02/2015 4:55 AM CDT Pt is resting in bed. Breathing is regular and unlabored. Pt talking on cell phone in complete sentences. Vss. No change in assessment. 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 Requesting to talk to MD regarding Lovenox. aware. Pt appears anxious. Xanax given as ordered. Patient/family has been informed about benefits and any potential clinically significant side effects or other concerns regarding the administration of the drug they have just been given. Breathing is regular and unlabored. Pt appears to be in no acute distress. Refusing to have bp takeat this time. Will continue to monitor * Ketty Stover RN - 07/02/2015 4:04 AM CDT Pt is anxious and requesting xanax. MD Taylor aware. Order received. * Ketty Stover RN - 07/02/2015 3:29 AM CDT Pt is continually refusing Lovenox injection. Risks and benefits reviewed with pt. AMA from signed due to refusing of care. Pt is still agreeing to admission. Breathing is regular and unlabored. Vss.NS infusing as ordered. Will continue to monitor * Ketty Stover RN - 07/02/2015 3:03 AM CDT Pt is refusing enoxaparin shot at this time. Pt is aware of risks and benefits * Ketty Stover RN - 07/02/2015 2:15 AM CDT Pt presents to ed with complaints of bilateral rib pain. Began a week ago. C/o sob and fever. Iv established. Blood sent to lab as ordered. 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 male presents to the ED with a Chief Complaint of Shortness of Breath Subjective HPI Comments: 1:50 AM: Carlos Kelly is a 45 y.o. male with a history of depression, anxiety, panic attacks, and DM, who presents to the Emergency Department with complaints of SOB starting 4 daysago. Pt states he has previously been evaluated in the ED for similar symptoms. Pt reports he was seen by his PCP and had lab work and referred to an fast food sales assistant. Pt states he was started on an inhalerand Singulair. States he has an appointment with a forest law and policy professor in July but decided to come infor evaluation due to worsening symptoms over the past 4 days. Pt states associated rib pain with deep breaths. Also c/o difficulty breathing at night and states he is supposed to be evaluated for sleep apnea. Pt reports some associated sore throat and low grade fever. Denies any leg swelling or other medical complaints at this time. Denies any recent travel. Pt denies any pain medication at this time. Chart review shows this is pt's 8th visit to this ED this year. Physician(s): No primary care provider on file. History provided by: The patient Arrived by: Private vehicle Arrived from: Home REVIEW OF SYSTEMS Review of Systems Constitutional: Positive for fever (100). Negative for chills and fatigue. HENT: Positive for sore throat. Negative for congestion, ear pain, sinus pressure, trouble swallowing and voice change. Respiratory: Positive for shortness of breath. Negative for cough and chest tightness. Cardiovascular: Negative for chest pain, palpitations and leg swelling. Gastrointestinal: Negative for nausea, vomiting, abdominal pain and diarrhea. Genitourinary: Negative for dysuria, urgency, frequency, flank pain and difficulty urinating. Musculoskeletal: Positive for arthralgias (rib pain). Negative for back pain. Skin: Negative for pallor and rash. Neurological: Negative for dizziness, speech difficulty, light-headedness and headaches. Psychiatric/Behavioral: Positive for sleep disturbance (waking up gasping for breath). Negative forconfusion. The patient is not nervous/anxious. PAST MEDICAL [...] vision, bilateral; Anxiety; Neck pain; Chest pain; and Pleuritic chest pain on his problem list. ALLERGIES Bactrim; Contrast; Levaquin; Lidocaine; Morphine; Paxil; Percocet; and Sulfa (sulfonamide antibiotics) HOME MEDICATIONS Patient's Home Medications Current Home Medications ALBUTEROL 90 MCG/ACTUATION HFA INHALER ALPRAZOLAM (XANAX) 2 MG TABLET CYCLOBENZAPRINE (FLEXERIL) 5 MG TABLET FLUTICASONE (FLONASE) 50 MCG/SPRAY BOTH NOSTRIL SPSN HYDROCODONE-ACETAMINOPHEN (NORCO) 5-325 MG TABLET HYOSCYAMINE 0.125 MG TABLET, SUBLINGUAL IBUPROFEN (MOTRIN) 400 MG TABLET MOMETASONE/FORMOTEROL (DULERA INHALATION) OMEPRAZOLE (PRILOSEC) 40 MG CAPSULE, DELAYED RELEASE(E.C.) ONDANSETRON (ZOFRAN ODT) 4 MG TABLET, RAPID DISSOLVE PROMETHAZINE (PHENERGAN) 25 MG ORAL TABLET SUCRALFATE (CARAFATE) 1 GRAM TABLET Medications Modified during this Encounter Medications Discontinued during this Encounter Objective PHYSICAL EXAM INITIAL VS BP: 144/81 mmHg (07/02/15111), Heart Rate: 93 bpm (07/02/15111), Resp: 20 (07/02/15111), Temp: 98.4 ??F (36.9 ??C) (07/02/15111), Temp src: Oral (07/02/15111), SpO2: 98 % (07/02/15111), Height: 6' 2 (188 cm) (07/02/15111), Weight: 111.131 kg (07/02/15111), BMI (Calculated): 31.52 (07/02/15111) No LMP for male patient. Physical Exam [...] He is not diaphoretic. No erythema. Psychiatric: His behavior is normal. Judgment and thought content normal. His mood appears anxious. Nursing note and vitals reviewed. DIAGNOSTICS LAB: Results for orders placed or performed during the hospital encounter of 07/02/15 (from the past 24 hour(s)) COMPREHENSIVE METABOLIC PANEL Result Value Ref Range SODIUM 141 136-145 mmol/L POTASSIUM 3.4 (L) 3.5-5.0 mmol/L CHLORIDE 101 98-107 mmol/L CO2 27 22-29 mmol/L CALCIUM 9.1 8.6-10.2 mg/dL BUN 13 6-20 mg/dL CREATININE 0.92 0.67-1.17 mg/dL GLUCOSE 145 (H) 79-99 mg/dL TOTAL PROTEIN 7.3 6.7-8.6 g/dL ALBUMIN 4.1 3.5-5.2 g/dL BILIRUBIN TOTAL 0.7 0.3-1.2 mg/dL ALKALINE PHOSPHATASE 77 40-129 U/L AST 27 <41 U/L ALT 36 <42 U/L GFR >60 >=60 mL/min/1.73 sq meter GFR, >60 >=60 mL/min/1.73 sq meter ANION GAP 13 8-16 mmol/L CBC WITH DIFFERENTIAL Result Value Ref Range WBC 6.2 4.0-9.8 K/uL RBC 5.42 (H) 3.90-4.90 M/uL HEMOGLOBIN 11.5 (L) 13.6-16.5 g/dL HEMATOCRIT 37.4 (L) 40.0-48.0 % MCV 69.0 (L) 82.0-99.0 fL MCH 21.2 (L) 27.2-32.6 pg MCHC 30.7 30.0-36.0 g/dL RDW 17.2 (H) 11.5-14.5 % RDW-STDEV 42.2 37.1-48.7 fL PLATELETS 170 140-350 K/uL MPV 9.2 (L) 9.3-12.4 fL NEUTROPHILS 64 45-70 % LYMPHOCYTES 29 16-45 % MONOCYTES 5 3-13 % EOSINOPHILS 2 <7 % BASOPHILS 0 <3 % NEUTROPHIL ABSOLUTE 3.98 1.90-7.00 K/uL LYMPHOCYTE ABSOLUTE 1.77 0.70-4.50 K/uL MONOCYTE ABSOLUTE 0.33 0.10-1.30 K/uL EOSINOPHIL ABSOLUTE 0.11 <0.70 K/uL BASOPHILS ABSOLUTE 0.02 <0.30 K/uL D-DIMER Result Value Ref Range D-DIMER QUANT 0.39 <0.41 ug/mL FEU POC CREATININE Result Value Ref Range POC CREATININE 0.90 0.70-1.20 mg/dL GFR >60 >=60 mL/min/1.73 sq meter GFR, >60 >=60 mL/min/1.73 sq meter POC GLUCOSE Result Value Ref Range POC GLUCOSE 115 (H) 79-99 mg/dL COMMENT, GLU POC Notified RN/MD RADIOLOGY: XR CHEST PA AND LATERAL ED Interpretation No acute process identified EKG: NSR rate 84, right axis deviation, right ventricular hypertrophy, Q waves inferiorly, T wave flattening in inferior leads, new T wave inversions in inferior leads compared to 05/18/2015 PROCEDURES Procedures MEDICAL DECISION MAKING AND PLAN OF CARE Patient with pleuritic chest pain, although dimer negative, mildly hypoxic and tachycardic. He is extremely anxious as well, admit for VQ scan today as he has IV contrast allergy. REEVALUATION 2:42 AM: Rechecked pt. Explained to pt that since he is allergic to IV dye, should admit for VQ scan tomorrow to evaluate for blood clots. Patient agrees with the plan. The opportunity for questions was given and questions were answered to the patient's satisfaction. All questions and concerns have been addressed. ED provider and ED nurse verbally discussed patient plan of care at this time. 3:10 AM: Rechecked pt, discussed risks involved in leaving against medical advice without appropriate evaluation of possible blood clot. Pt agrees to stay and receive VQ scan in the morning. Pt states that hedoes not want to receive the Rx Lovenox at this time. Explained risks of not taking treatment at this time. Patient understands and still declines Lovenox at this time. CASE DISCUSSED 3:08 AM: Per nurse, pt does not want to be admitted and states he would prefer to be discharged home. 3:52 AM: Discussed case with Dr. Escobedo ([facility] Hospitalist) patient's lab results, physical exam findings, and current evaluations. Agrees with the proposed management and plan. They are aware of the patient's condition and diagnostic findings and will accept care of the patient upon admission of care. Agrees with admission to the Medicine floor with remote telemetry. Medications Administered During the ED Stay from 07/02/2015 0111 to 07/02/2015 0624 Date/Time Order Dose Route Action 07/02/2015 0454 sodium chloride 0.9% bolus solution 500 mL 0 mL IV Stopped 07/02/2015 0213 sodium chloride 0.9% bolus solution 500 mL 500 mL IV New Bag 07/02/2015 0454 sodium chloride 0.9% infusion IV New Bag 07/02/2015 0329 enoxaparin (LOVENOX) injection 105 mg 105 mg subCUT Refused 07/02/2015 0406 ALPRAZolam (XANAX) tablet 2 mg 2 mg Oral Given . New Prescriptions for this Encounter LAST VS BP: 147/85 mmHg (07/02/15329), Heart Rate: 86 bpm (07/02/15329), Resp: 18 (07/02/15329), Temp: 98.4 ??F (36.9 ??C) (07/02/15111), Temp src: Oral (07/02/15111), SpO2: 96 % (07/02/15329) CLINICAL IMPRESSION Final diagnoses: [R07.81] Pleuritic chest pain (Primary) [R06.02] Shortness of breath [F41.9] Anxiety CODING MDM Coding Reviewed: previous chart, nursing note and vitals Reviewed previous: labs and ECG Interpretation: SP02, ECG, labs, cardiac monitoring and x-ray I have reviewed nursing notes and agree unless otherwise mentioned. Consults: hospitalist DISPOSITION, EDUCATION AND MEDICATION RECONCILIATION Medications reconciled. See after visit summary for patient education on discharged patients. Disposition: Patient admitted to the medical floor with remote telemetry in stable condition. ATTESTATION STATEMENTS This note has been prepared by Karla Nathe acting as a scribe for Dr. Denice Taylor on 07/02/2015 at 3:59 AM. The scribe's documentation has been prepared under my direction and personally reviewed by me, Denice Taylor M.D. , in its entirety on 07/02/2015 at 6:24 AM. I confirm that the note above accurately reflects all work, treatment, procedures, and medical decision making performed by me. documented in this encounter Miscellaneous Notes * Care Plan - Joseph Hall - 07/02/2015 2:41 PM CDT Problem: Spiritual Distress, Risk/Actual (Adult) Intervention: Assist with Spiritual Activities Respond to referral from RN that Robert wanted to speak with a seaman. Robert states that he wants to get right with God . Provided a listening presence as he related his life story. Assured him of God's loving presence and his unconditional love. Provided prayer, affirmation and support. Providedspiritual reading material. Will follow as requested. documented in this encounter Plan of Treatment Not on file documented as of this encounter Procedures Procedure Name Priority Date/Time Associated Diagnosis Comments TELEMETRY REPORT 07/05/2015 6:49 PM CDT POC GLUCOSE Routine 07/02/2015 2:03 PM CDT TROPONIN Routine 07/02/2015 1:10 PM CDT NM LUNG VENT PERF Routine 07/02/2015 9:1 3 AM CDT POC GLUCOSE Stat 07/02/2015 5:24 AM CDT EKG 12-LEAD Stat 07/02/2015 2:31 AM CDT POC CREATININE Stat 07/02/2015 2:29 AM CDT XR CHEST PA AND LATERAL 2 VW Stat 07/02/2015 2:23 AM CDT IRON, TIBC, AND PERCENT SATURATION Add on 07/02/2015 2:10 AM CDT CBC WITH DIFFERENTIAL Stat 07/02/2015 2:10 AM CDT D-DIMER Stat 07/02/2015 2:10 AM CDT TROPONIN Add on 07/02/2015 2:10 AM CDT HEMOGLOBIN A1C Add on 07/02/2015 2:10 AM CDT FERRITIN Add on 07/02/2015 2:10 AM CDT COMPREHENSIVE METABOLIC PANEL Stat 07/02/2015 2:10 AM CDT PULSE OXIMETRY, CONTINUOUS Stat 07/02/2015 1:58 AM CDT documented in this encounter Results * TELEMETRY REPORT (07/05/2015 6:49 PM CDT) Provider Scanning ECG ORDERABLES * (ABNORMAL) POC GLUCOSE (07/02/2015 2:03 PM CDT) Pathologist [facility] GLUCOSE POC 145(H) 79 - 99 mg/dL 07/02/2015 2:10 PM CDT [facility] Whole blood specimen (specimen) 07/02/2015 2:03 PM CDT 07/02/2015 2:10 PM CDT Sarwat Mcfadden MD POINT OF CARE TESTIN [facility]# [id number] [address] [place] [address] * TROPONIN (07/02/2015 1:10 PM CDT) Pathologist [facility] TROPONIN T <0.01 <0.04 ng/mL 07/02/2015 1:56 PM CDT [facility] Blood Venipuncture - L ab Collect / Unknown 07/02/2015 1:10 PM CDT 07/02/2015 1:24 PM CDT Iwona Arteaga JOCY CHEMISTRY ORDERABLES [facility] LAYA# [id number] [address] [facility] [place] [address] * NM LUNG VENT PERF (07/02/2015 9:13 AM CDT) Anatomical Region Laterality Modality Chest Nuclear Medicine 07/02/2015 8:54 AM CDT Narrative 07/02/2015 9:57 AM CDT Ventilation/perfusion lung scan History: Shortness of breath. Diabetes. Clear chest x-ray. Procedure: Dynamic ventilation and multiple static perfusion images. [employer]arm[employer]: 14.33 mCi Xe-133 for ventilation 4.33 mCi 99m technetium MAA for perfusion Findings: Ventilation: Abnormal with mild delayed wash-in and similar area delayed washout in the medial left lung base. Incidental finding of xenon retention within the liver. Perfusion: Normal. IMPRESSION Mild atelectasis in the medial left lung base. Normal lung perfusion. No large, wedge-shaped, pleural-based segmental mismatched perfusion defects are seen that would suggest pulmonary emboli. Incidental finding of hepatic steatosis. Post Test probability of PE: Extremely low ( ??less than 1 ??% ) Dictated by Dr. Nakul Butterfield MD Dictated from Location 1. Procedure Note Nakul Butterfield MD - 07/02/2015 Ventilation/perfusion lung scan History: Shortness of breath. Diabetes. Clear chest x-ray. Procedure: Dynamic ventilation and multiple static perfusion images. Radiopharmaceuticals: 14.33 mCi Xe-133 for ventilation 4.33 mCi 99m technetium MAA for perfusion Findings: Ventilation: Abnormal with mild delayed wash-in and similar area delayed washout in the medial left lung base. Incidental finding of xenon retention within the liver. Perfusion: Normal. IMPRESSION Mild atelectasis in the medial left lung base. Normal lung perfusion. No large, wedge-shaped, pleural-based segmental mismatched perfusion defects are seen that would suggest pulmonary emboli. Incidental finding of hepatic steatosis. Post Test probability of PE: Extremely low ( less than 1 % ) Dictated by Dr. Nakul Butterfield MD Dictated from Location 1. Denice Taylor MD NM ORDERABLES * (ABNORMAL) POC GLUCOSE (07/02/2015 5:24 AM CDT) GLUCOSE POC 115(H) 79 - 99 mg/dL 07/02/2015 5:30 AM CDT [facility] COMMENT, GLU POC Notified RN/MD 07/02/2015 5:30 AM CDT [facility] Whole blood specimen (specimen) 07/02/2015 5:24 AM CDT 07/02/2015 5:30 AM CDT Denice Taylor MD POINT OF CARE TESTIN [facility]# [id number] [address] [facility] [place] [address] * EKG 12-LEAD (07/02/2015 2:31 AM CDT) 07/02/2015 2:31 AM CDT Narrative INTERFACE SYSTEM - 07/02/2015 11:40 AM CDT ? Stationary ECG Study ? [facility] ? Test Date: ?07/02/2015 2:31 AM Pat Name: ? VINCENT CORPUS ? Department: ?? 16 ?Room: ? 16 16 Gender: ? M ?Armhole Baster Hand: ?? [id number] : ?1970 ? Requested By: DENICE TAYLOR Order Number: [id number] ?Reading MD: ?? Deryk Phelps ? Measurements Intervals ?[place] ? Rate: ? 84 ? P: ?-16 AL: ? 142 ?QRS: ?124 QRSD: ? 99 ? T: ?-28 QT: ? 350 ? QTc: ?415 ? Interpretive Statements ? SINUS RHYTHM Electronically Signed On 07-02-2015 11:40:15 CDT by Leo Phelps Procedure Note Provider, Rachael / Leo Phelps MD - 11/25/2021 Stationary ECG Study [facility] Test Date: 07/02/2015 2:31 AM Pat Name: CARLOS KELLY Department: 16 Room: 16 16 Gender: M Armhole Baster Hand: [id number] : 1970 Requested By: DENICE TAYLOR Order Number: [id number] Reading MD: Leo Phelps Measurements Intervals [place] Rate: 84 P: -16 AL: 142 QRS: 124 QRSD: 99 T: -28 QT: 350 QTc: 415 Interpretive Statements SINUS RHYTHM Electronically Signed On 07-02-2015 11:40:15 CDT by Leo Phelps Denice Taylor MD ECG ORDERABLES INTERFACE SYSTEM Refer to clinic/hospital department * POC CREATININE (07/02/2015 2:29 AM CDT) CREATININE POC 0.90 0.70 - 1.20 mg/dL 07/02/2015 2:55 AM CDT [facility] GFR >60 >=60 mL/min/1.7 3 sq meter 07/02/2015 2:55 AM CDT [facility] Comment: [...] GFR, >60 >=60 mL/min/1.7 3 sq meter 07/02/2015 2:55 AM CDT [facility] Blood, capillary 07/02/2015 2:29 AM CDT 07/02/2015 2:55 AM CDT Denice Taylor MD POINT OF CARE TESTIN G [facility] [facility] CLIA# [id number] [address] [place] [address] * XR CHEST PA AND LATERAL (07/02/2015 2:23 AM CDT) Anatomical Region Laterality Modality Chest Computed Radiogr aphy 07/02/2015 2:23 AM CDT Impressions 07/02/2015 4:38 PM CDT IMPRESSION: No acute abnormality. Narrative 07/02/2015 4:38 PM CDT CHEST PA AND LATERAL, 07/02/2015 INDICATION: ??Chest pain. COMPARISON: 05/26/2015. FINDINGS: The lungs are clear. No acute infiltrate, pleural effusion, pneumothorax, or pulmonary edema is present. The cardiomediastinal silhouette is normal. No acute osseous abnormalities are seen. Procedure Note Rashad Milian MD - 07/02/2015 CHEST PA AND LATERAL, 07/02/2015 INDICATION: Chest pain. COMPARISON: 05/26/2015. FINDINGS: The lungs are clear. No acute infiltrate, pleural effusion, pneumothorax, or pulmonary edema is present. The cardiomediastinal silhouette is normal. No acute osseous abnormalities are seen. IMPRESSION IMPRESSION: No acute abnormality. Denice Taylor MD DIAGNOSTIC IMAGING O RDERABLES * TROPONIN (07/02/2015 2:10 AM CDT) TROPONIN T <0.01 <0.04 ng/mL 07/02/2015 9:56 AM CDT [facility] Blood 07/02/2015 2:10 AM CDT 07/02/2015 9:42 AM CDT Iwona Arteaga APN CHEMISTRY ORDERABLES [facility] [facility] CLIA# [id number] [address] [place] [address] * (ABNORMAL) HEMOGLOBIN A1C (07/02/2015 2:10 AM CDT) HEMOGLOBIN A1C 6.5(H) 4.1 - 6.1 % 07/02/2015 5:25 PM CDT [facility] EST. AVG GLUCOSE, A1C 140 mg/dL 07/02/2015 5:25 PM CDT [facility] Blood Venipuncture - Floor Collect / Unknown 07/02/2015 2:10 AM CDT 07/02/2015 2:11 AM CDT Narrative [facility] - 07/02/2015 5:25 PM CDT Based on the ADAG study equation. Iwona Arteaga APN CHEMISTRY ORDERABLES Performing Organization Address [facility]/ZIP Co de Phone Number [facility] CLIA# [id number] [address] [place] [address] * (ABNORMAL) FERRITIN (07/02/2015 2:10 AM CDT) FERRITIN 9.5(L) 30.0 - 400.0 ng/mL 07/02/2015 10:37 AM CDT [facility] Blood Venipuncture - Floor Collect / Unknown 07/02/2015 2:10 AM CDT 07/02/2015 2:11 AM CDT Iwona Arteaga APN CHEMISTRY ORDERABLES [facility] CLIA# [id number] [address] [place] [address] * (ABNORMAL) IRON, TIBC, AND PERCENT SATURATION (07/02/2015 2:10 AM CDT) IRON 32(L) 59 - 158 ug/dL 07/02/2015 10:21 AM CDT [facility] TIBC 431 250 - 450 ug/dL 07/02/2015 10:21 AM CDT [facility] IRON % SATURATION 7(L) 20 - 50 % 07/02/2015 10:21 AM CDT [facility] TRANSFERRIN 339 200 - 360 mg/dL 07/02/2015 10:21 AM CDT [facility] Blood Venipuncture - Floor Collect / Unknown 07/02/2015 2:10 AM CDT 07/02/2015 2:11 AM CDT Iwona Arteaga APN CHEMISTRY ORDERABLES Performing Organization Address [facility] Co de Phone Number [facility] CLIA# [id number] [address] [place] [address] * D-DIMER (07/02/2015 2:10 AM CDT) D-DIMER QUANT 0.39 <0.41 ug/mL FEU 07/02/2015 2:28 AM CDT [facility] Comment: The DIC reference range is not clearly established in uncomplicated pregnancies. ??Values above the upper limit of the reference range are common from the 31st to 40th week of . ??High negative predictive values for DVT have been reported with the current methodology, as part of a comprehensive medical examination, including risk stratification. Various clinical studies utilizing this method have shown that a result of <0.5 mcg/ml FEU excludes deep vein thrombosis and pulmonary embolism with high sensitivity when used in conjunction with a non-high clinical pre-test probability assessment. Blood Venipuncture - Floor Collect / Unknown 07/02/2015 2:10 AM CDT 07/02/2015 2:11 AM CDT Denice Taylor MD HEMATOLOGY ORDERABLE S Performing Organization Address City/[facility]/ZIP Co de Phone Number [facility] CLIA# [id number] [address] [place] [address] * (ABNORMAL) CBC WITH DIFFERENTIAL (07/02/2015 2:10 AM CDT) [facility] WBC 6.2 4.0 - 9.8 K/uL 07/02/2015 2:14 AM CDT [facility] RBC 5.42(H) 3.90 - 4.90 M/uL 07/02/2015 2:14 AM CDT [facility] HEMOGLOBIN 11.5(L) 13.6 - 16.5 g/dL 07/02/2015 2:14 AM CDT [facility] HEMATOCRIT 37.4(L) 40.0 - 48.0 % 07/02/2015 2:14 AM CDT [facility] MCV 69.0(L) 82.0 - 99.0 fL 07/02/2015 2:14 AM CDT [facility] MCH 21.2(L) 27.2 - 32.6 pg 07/02/2015 2:14 AM CDT [facility] MCHC 30.7 30.0 - 36.0 g/dL 07/02/2015 2:14 AM CDT [facility] RDW 17.2(H) 11.5 - 14.5 % 07/02/2015 2:14 AM CDT [facility] RDW-STDEV 42.2 37.1 - 48.7 fL 07/02/2015 2:14 AM CDT [facility] - [facility] PLATELETS 170 140 - 350 K/uL 07/02/2015 2:14 AM CDT [facility] MPV 9.2(L) 9.3 - 12.4 fL 07/02/2015 2:14 AM CDT [facility] . [facility] NEUTROPHILS 64 45 - 70 % 07/02/2015 2:14 AM CDT [facility] LYMPHOCYTES 29 16 - 45 % 07/02/2015 2:14 AM CDT [facility] MONOCYTES 5 3 - 13 % 07/02/2015 2:14 AM CDT [facility] EOSINOPHILS 2 <7 % 07/02/2015 2:14 AM CDT [facility] . [facility] BASOPHILS 0 <3 % 07/02/2015 2:14 AM CDT [facility] NEUTROPHIL ABSOLUTE 3.98 1.90 - 7.00 K/uL 07/02/2015 2:14 AM CDT [facility] LYMPHOCYTE ABSOLUTE 1.77 0.70 - 4.50 K/uL 07/02/2015 2:14 AM CDT [facility] MONOCYTE ABSOLUTE 0.33 0.10 - 1.30 K/uL 07/02/2015 2:14 AM CDT [facility] EOSINOPHIL ABSOLUTE 0.11 <0.70 K/uL 07/02/2015 2:14 AM CDT [facility] BASOPHILS ABSOLUTE 0.02 <0.30 K/uL 07/02/2015 2:14 AM CDT [employer] [facility] Blood Venipuncture - Floor Collect / Unknown 07/02/2015 2:10 AM CDT 07/02/2015 2:11 AM CDT Denice Taylor MD HEMATOLOGY ORDERABLE S [id number] [address] [place], [place] [id number] * (ABNORMAL) COMPREHENSIVE METABOLIC PANEL (07/02/2015 2:10 AM CDT) SODIUM 141 136 - 145 mmol/L 07/02/2015 2:33 AM CDT [facility] - [facility] POTASSIUM 3.4(L) 3.5 - 5.0 mmol/L 07/02/2015 2:33 AM CDT [facility] CHLORIDE 101 98 - 107 mmol/L 07/02/2015 2:33 AM CDT [facility] CO2 27 22 - 29 mmol/L 07/02/2015 2:33 AM CDT [facility] CALCIUM 9.1 8.6 - 10.2 mg/dL 07/02/2015 2:33 AM CDT [facility] BUN 13 6 - 20 mg/dL 07/02/2015 2:33 AM CDT [facility] CREATININE 0.92 0.67 - 1.17 mg/dL 07/02/2015 2:33 AM T [facility] - [facility] GLUCOSE 145(H) 79 - 99 mg/dL 07/02/2015 2:33 AM [facility] [place] [facility] TOTAL PROTEIN 7.3 6.7 - 8.6 g/dL 07/02/2015 2:33 AM [facility] [place] [facility] ALBUMIN 4.1 3.5 - 5.2 g/dL 07/02/2015 2:33 AM [facility] [place] [facility] BILIRUBIN TOTAL 0.7 0.3 - 1.2 mg/dL 07/02/2015 2:33 AM [facility] [place] [facility] ALKALINE PHOSPHATASE 77 40 - 129 U/L 07/02/2015 2:33 AM [facility] [place] [facility] AST 27 <41 U/L 07/02/2015 2:33 AM [facility] [place] [facility] ALT 36 <42 U/L 07/02/2015 2:33 AM [facility] [place] [facility] - [facility] GFR >60 >=60 mL/min/1.7 3 sq meter 07/02/2015 2:33 AM [facility] [place] [facility] - [facility] Comment: eGFR has not been validated [...] GFR, >60 >=60 mL/min/1.7 3 sq meter 07/02/2015 2:33 AM T [facility] - [facility] ANION GAP 13 8 - 16 mmol/L 07/02/2015 2:33 AM [facility] [place] [facility] - . [facility] Blood Venipuncture - Floor Collect / Unknown 07/02/2015 2:10 AM CDT 07/02/2015 2:11 AM CDT Denice Ullery MD CHEMISTRY ORDERABLES [facility]# [id number] [address] [place] [address] documented in this encounter Visit Diagnoses Diagnosis Pleuritic chest pain- Primary Painful respiration Pleuritic chest pain Painful respiration Shortness of breath Anxiety Anxiety state, unspecified Depression with anxiety Dysthymic disorder Diabetes mellitus type 2, controlled, without complications GERD (gastroesophageal reflux disease) Esophageal reflux Microcytic anemia Iron deficiency anemia, unspecified SOB (shortness of breath) Shortness of breath documented in this encounter Administered Medications Inactive Administered Medications - up to 3 most recent administrations Medication Order MAR Action Action Date Dose Rate Site ALPRAZolam (XANAX) tablet 2 mg 2 mg, Oral, ONE TIME ONLY, 1 dose, On Wed07/02/15 at 0400, Routine Given 07/02/2015 4:06 AM CDT 2 mg ALPRAZolam (XANAX) tablet 2 mg 2 mg, Oral, EVERY 8 HOURS PRN, Starting on Wed07/02/15 at 1006, Until Wed07/02/15 at 2002, Anxiety, Routine Given 07/02/2015 12:50 PM CDT 2 mg famotidine (PEPCID) tablet 20 mg 20 mg, Oral, TWO TIMES DAILY, First dose on Wed07/02/15 at 1030, Until Discontinued, Routine Given 07/02/2015 12:50 PM CDT 20 mg potassium chloride (KLOR-CON) SR tablet 40 mEq 40 mEq, Oral, ONE TIME ONLY, 1 dose, On Wed07/02/15 at 1100, Routine Given 07/02/2015 2:07 PM CDT 40 mEq sodium chloride 0.9% bolus solution 500 mL 500 mL, IV, ONE TIME ONLY, 1 dose, On Wed07/02/15 at 0200, at 1,000 mL/hr, Administer over 30 Minutes, Routine New Bag 07/02/2015 2:13 AM CDT 500 mL 1000 mL/hr sodium chloride 0.9% infusion IV, at 75 mL/hr, CONTINUOUS, Starting on Wed07/02/15 at 0200, Until Wed07/02/15 at 1047, Routine New Bag 07/02/2015 4:54 AM CDT 75 mL/hr documented in this encounter Active and Recently Administered Medications Times are shown in CDT. Scheduled Medication Order 06/30/2015 07/01/2015 07/02/2015 ALPRAZolam (XANAX) tablet 2 mg (COMPLETED) 2 mg, Oral, ONE TIME ONLY, 1 dose, On Wed07/02/15 at 0400, Routine 0406 (Given - Provid er: Ketty Stover RN) famotidine (PEPCID) tablet 20 mg (CANCELED) 20 mg, Oral, TWO TIMES DAILY, First dose on Wed07/02/15 at 1030, Until Discontinued, Routine 1250 (Given - Provid er: Nav Oconnell RN) potassium chloride (KLOR-CON) SR tablet 40 mEq (COMPLETED) 40 mEq, Oral, ONE TIME ONLY, 1 dose, On Wed07/02/15 at 1100, Routine 1407 (Given - Provid er: Nav Oconnell RN) sodium chloride 0.9% bolus solution 500 mL (COMPLETED) 500 mL, IV, ONE TIME ONLY, 1 dose, On Wed07/02/15 at 0200, at 1,000 mL/hr, Administer over 30 Minutes, Routine 0213 (New Bag - Prov ider: Ketty Stover RN)0454 (Stopped - Provider: Ketty Stover RN) Continuous Medication Order 06/30/2015 07/01/2015 07/02/2015 sodium chloride 0.9% infusion (CANCELED) IV, at 75 mL/hr, CONTINUOUS, Starting on Wed07/02/15 at 0200, Until Wed07/02/15 at 1047, Routine 0454 (New Bag - Prov ider: Ketty Stover RN) PRN Medication Order 06/30/2015 07/01/2015 07/02/2015 ALPRAZolam (XANAX) tablet 2 mg (CANCELED) 2 mg, Oral, EVERY 8 HOURS PRN, Starting on Wed07/02/15 at 1006, Until Wed07/02/15 at 2002, Anxiety, Routine 1250 (Given - Provid er: Nav Oconnell RN) documented in this encounter Care Teams Credit Risk Specialist Relationship Specialty Start Date End Date Primitivo Zhang MD PCP - General Emergency Medicine 07/02/15 11/25/15 documented as of this encounter
--- OUTSIDE RECORDS SUMMARY | 2024-09-10 04:21 | XMS_ITS | Encounter Summary ---
[facility] Address [address] [place] [address] Care Team Providers Care Necktie Operator Pockets And Pieces Name Role Phone Primitivo Zhang MD Primary Care Provider Reason for Visit * Reason Comments Medication Reaction Started taking ateno lol and states he thinks he is having a reaction to the medication. States has anxiety, chest pressure, and SOB approx 1 hour after taking the atenolol. Pt reports is still having high blood pressure. * Auth/Cert Specialty Diagnoses / Procedures Referred By Redd mobley Referred To Contact Emergency Medicine [facility] Emergency Dept [address] [place] [address] Referral ID Status Reason Start Date Expiration Date Visits Re quested Visits Authorized [id number] 1 1 Encounter Details Date Type Department Care Team (Late st Contact Info) Description 09/22/2015 4:30 PM TRANSPORTATION MAINTENANCE SPECIALIST - 09/22/2015 6:14 PM [facility] [place] Emergency [facility] Emergency Department [address] [place] [address] Edwin Rice MD [address] [place] [address] Essential hypertension (Primary Dx) Discharge Disposition: Home or Self [...] Sign Reading Time Taken Comments Blood Pressure 133/80 09/22/2015 6:00 PM TRANSPORTATION MAINTENANCE SPECIALIST Pulse 78 09/22/2015 6:00 PM TRANSPORTATION MAINTENANCE SPECIALIST Temperature 36.8 ??C (98.2 ??F) 09/22/2015 4:25 PM CS T Respiratory Rate 18 09/22/2015 6:00 PM TRANSPORTATION MAINTENANCE SPECIALIST Oxygen Saturation 97% 09/22/2015 6:00 PM TRANSPORTATION MAINTENANCE SPECIALIST Inhaled Oxygen Concentration - - Weight 118.8 kg (262 lb) 09/22/2015 4:25 PM TRANSPORTATION MAINTENANCE SPECIALIST Height 188 cm (6' 2 ) 09/22/2015 4:25 PM TRANSPORTATION MAINTENANCE SPECIALIST Body Mass Index 33.64 09/22/2015 4:25 PM TRANSPORTATION MAINTENANCE SPECIALIST documented in this encounter Discharge Instructions * Discharge Instructions* Edwin Rice MD - 09/22/2015 5:46 PM TRANSPORTATION MAINTENANCE SPECIALIST Do not combine the Atenolol and Hydrochlorothiazied SPORTATION MAINTENANCE SPECIALIST * Attachments The following attachments cannot be sent through Care Everywhere. * DIET: DASH (PARAGUAYAN) * HYPERTENSION (PARAGUAYAN) * LOW SODIUM DIET (PARAGUAYAN) * KIDNEY DISEASE: HIGH BLOOD PRESSURE (PARAGUAYAN) * HTN (HYPERTENSION): DIURETICS: GENERAL INFO (PARAGUAYAN) documented in this encounter Medications at Time of Discharge Medication Sig Dispensed Refills Start Date End Date albuterol 90 mcg/Actuation HFA inhaler Take 2 Puffs by inhalation every 6 hours as needed for Shortness of Breath. hydrochlorothiazide 25 mg tablet Take 1 Tablet (25 mg) by mouth daily. 14 Tablet 0 09/22/2015 12/03/2015 acetaminophen-caffeine -butalbital (FIORICET) 325-40-50 mg tablet [...] as of this encounter ED Notes * Zara Osorio RN - 09/22/2015 9:13 PM CST Pt needed assistance with PCP follow up. Spoke with pt. Pt was also referred to the [facility] for furtherassistance in obtaining a PCP. The pt also needed assistance with medication, explanation was given. Care Management contact information was given to the pt for any further needs. Zara Osorio RN BSN [facility] ED [id number] SPORTATION MAINTENANCE SPECIALIST * Chyna Camarillo RN - 09/22/2015 6:13 PM CST Care management addressed all concerns SPORTATION MAINTENANCE SPECIALIST * Chyna Camarillo RN - 09/22/2015 5:52 PM CST A&Ox4, Skin PWD, Resp even & unlabored, NAD noted at present. Patient discharged to home via ambulation with family. Discharge information, including an overview of treatment received, after-visit instructions, and recommendation for follow- up care provided to patient. Questions answered, understanding of discharge instruction verbalized. Printed copy given to patient SPORTATION MAINTENANCE SPECIALIST * Chyna Camarillo RN - 09/22/2015 5:44 PM CST life enrichment manager at to answer questions and provide resources SPORTATION MAINTENANCE SPECIALIST * Chyna Camarillo RN - 09/22/2015 5:24 PM CST 45 yof to ER 29 w/ c/o per triage not. Pt reports 2hrs after taking BP medication atenolol pt becomes SOB and anxious . Pt reports varying BPs, normal at present. Pt also reports swelling to hands. A&Ox4, Skin PWD, Resp even & unlabored, NAD noted at present. Resting in bed, call light in reach, aware of POC. Will cont to monitor. EKG obtained SPORTATION MAINTENANCE SPECIALIST * Edwin Rice MD - 09/22/2015 5:12 PM CST HISTORY OF PRESENT ILLNESS Wade Kelly, a 45 y.o. male presents to the ED with a Chief Complaint of Medication Reaction Subjective HPI Comments: 5:14 PM: Wade Kelly is a 45 y.o. male with a history of depression, PTSD, anxiety, asthma and HTN, who presents to the Emergency Department with complaints of SOB. Pt reports handswelling, leg tingling, increased blood pressure, and chest pain about 1 hour after taking atenolol. Pt states that he was at an UC 2 days ago for high blood pressure and was given an Rx for atenolol. Pt states that his blood pressure is usually 140/80. Pt requests information on the side effects of other blood pressure medications. Physician(s): Primitivo Yen MD History provided by: The patient materials branch chief used: No Arrived by: Private vehicle Arrived from: Home REVIEW OF SYSTEMS Review of Systems Constitutional: Negative for fever and chills. HENT: Negative for sore throat. Respiratory: Positive for shortness of breath. Negative for cough and chest tightness. Cardiovascular: Positive for chest pain. + increased blood pressure Gastrointestinal: Negative for nausea, vomiting, abdominal pain, diarrhea and constipation. Endocrine: Negative for polyuria. Genitourinary: Negative for dysuria, urgency, hematuria, flank pain and difficulty urinating. Musculoskeletal: Negative for back pain and neck pain. +hand swelling Skin: Negative for rash. Allergic/Immunologic: Negative for immunocompromised state. Neurological: Negative for weakness. + leg tingling PAST MEDICAL HISTORY REVIEWED MEDICAL: Patient has [...] breath) on his problem list. ALLERGIES Bactrim; Clindamycin; Contrast; Levaquin; Lidocaine; Lisinopril; Morphine; Paxil; Percocet; and Sulfa (sulfonamide antibiotics) HOME MEDICATIONS Discharge Medication List as of 09/22/2015 5:47 PM START taking these medications Details hydrochlorothiazide 25 mg tablet Take 1 Tablet (25 mg) by mouth daily., Disp-14 Tablet, R-0 CONTINUE these medications which have NOT CHANGED Details !! muxjnuvxuwkdc-ucettjlp-ovxpwbyrfx (FIORICET) 325-40-50 mg tablet Take 1 Tablet by mouth every 4 hours as needed for Migraine., Disp-12 Tablet, R-None !! ajuizfzasovxf-idwyiyxu-iryyuukxak (FIORICET) 325-40-50 mg tablet Take 1 Tablet by mouth every 4 hours as needed for Migraine., Disp-20 Tablet, R-None metroNIDAZOLE (FLAGYL) 500 mg [...] 6 hours as needed for Nausea/Emesis . !! - Potential duplicate medications found. Please discuss with provider. Objective PHYSICAL EXAM INITIAL VS BP: (!) 144/97 mmHg (09/22/151624), Heart Rate: 81 bpm (09/22/151624), Resp: 18 (09/22/151624), Temp: 98.2 ??F (36.8 ??C) (09/22/151624), Temp src: Oral (09/22/151624), SpO2: 98 % (09/22/151624), Height: 6' 2 (188 cm) (09/22/151624), Weight: 118.842 kg (09/22/151624), BMI (Calculated): 33.71 (01/10/16 1625) No LMP for male patient. Physical Exam Constitutional: He is oriented to person, place, and time. He appears well- developed and well-nourished. +Obese HENT: Head: Normocephalic and atraumatic. Mouth/Throat: Oropharynx is clear and moist. Eyes: Conjunctivae are normal. Pupils are equal, round, and reactive to light. Neck: Normal range of motion. Cardiovascular: Normal rate, regular rhythm, normal heart sounds and intact distal pulses. Exam reveals no gallop and no friction rub. No murmur heard. Pulmonary/Chest: Effort normal and breath sounds normal. He has no wheezes. He has no rales. Abdominal: Soft. Bowel sounds are normal. He exhibits no distension. There is no tenderness. Musculoskeletal: Normal range of motion. He exhibits no edema. Neurological: He is alert and oriented to person, place, and time. Skin: Skin is warm and dry. No rash noted. Psychiatric: He has a normal mood and affect. His behavior is normal. Vitals reviewed. DIAGNOSTICS LAB: Labs this ED Encounter - No data to display RADIOLOGY: No orders to display EKG: Rate 79. Normal sinus rhythm. Normal axis and interval. T wave inversion in 3. Q in 3 S wave in 1. Unchanged from previous EKG. PROCEDURES Procedures MEDICAL DECISION MAKING AND PLAN OF CARE Patient is a 45-year-old male who has multiple complaints. He has been seen in the ER multiple times in the past year. Every time we discuss one of his symptoms, he brings up another symptom of an other system, often times interrupting my explanation. Patient states that he recently had blood work done a week ago including a d-dimer which was normal. His EKG is the same as his previous EKGs from the ER. He requests that I switch his beta justine antihypertensive because of the side effects and that his blood pressure is poorly controlled. He states he feels he can't breathe when he is taking the medicine. He states he has a history of angioedema, has never taken an ARB, or diuretic. We havediscussed hydrochlorothiazide as an option, including side effects and alternatives. manager parking has seen the patient was helping to establish primary care followup, as he was fired by his primary care physician. Towards the end of the interview he asked Have you ever seen anyone get chopped up? At this point, I told him that the conversation wasn't productive any longer, and that I would be discharging himhome. This patient is very manipulative, and I feel that he will be back in the ER very soon for similar symptoms. REEVALUATION 5:44 PM: Updated patient on other medications available for HTN. Patient states that he wants to try hydrochlorothiazide for his high blood pressure. Reccommended that he follow up with PCP. 5:46 PM: Updated pt on their EKG results. Patient will be discharged home with Rx for hydrochlorothiazide. Recommended follow up with PCP. RTER with worsening sx. Pt understands and agrees with the plan. All questions and concerns addressed. The patient is stable for discharge. ED provider and ED nurse verbally discussed patient plan of care at this time. Discharge Medication List as of 09/22/2015 5:47 PM START taking these medications Details hydrochlorothiazide 25 mg tablet Take 1 Tablet (25 mg) by mouth daily., Disp-14 Tablet, R-0 CONTINUE these medications which have NOT CHANGED Details !! lxrgkvcrmikej-ptqjebjs-dwtpmxueqv (FIORICET) 325-40-50 mg tablet Take 1 Tablet by mouth every 4 hours as needed for Migraine., Disp-12 Tablet, R-None !! eqjxhahlqnmwq-fhadipdp-lnfmikjeyz (FIORICET) 325-40-50 mg tablet Take 1 Tablet by mouth every 4 hours as needed for Migraine., Disp-20 Tablet, R-None metroNIDAZOLE (FLAGYL) 500 mg [...] 6 hours as needed for Nausea/Emesis . !! - Potential duplicate medications found. Please discuss with provider. LAST VS BP: 133/80 mmHg (09/22/15 1800), Heart Rate: 78 bpm (09/22/151799), Resp: 18 (09/22/151799), Temp: 98.2 ??F (36.8 ??C) (09/22/15 162), Temp src: Oral (09/22/15 162), SpO2: 97 % (09/22/151799) CLINICAL IMPRESSION Final diagnoses: [I10] Essential hypertension (Primary) CODING MDM Coding Reviewed: previous chart and vitals Interpretation: SP02 and ECG Consults: social media marketing manager DISPOSITION, EDUCATION AND MEDICATION RECONCILIATION Medications reconciled. See after visit summary for patient education on discharged patients. Follow [facility]: [facility], PHYSICIAN REFERRAL LINE [phone] To establish a Primary Care Doctor DISCHARGED HOME IN STABLE CONDITION. ATTESTATION STATEMENTS This note has been prepared by Rachel Murray acting as a scribe for Dr. Edwin Rice on 09/22/2015 at 5:50 PM. The scribe's documentation has been prepared under my direction and personally reviewed by me, CHANDU,in its entirety on 09/22/2015 at 6:27 PM. I confirm that the note above accurately reflects all work, treatment, procedures, and medical decision making performed by me. SPORTATION MAINTENANCE SPECIALIST documented in this encounter Miscellaneous Notes * Care Plan - Shawanda Bolanos - 09/24/2015 1:37 PM CST Spoke with patient regarding needs and options for PCP care. Patient requested referral to [facility]. This coordinator will secure an appointment and update both the patient and this chart with that information. GLEN Freedman [employer] Personal Lines Sales Rep [phone] SPORTATION MAINTENANCE SPECIALIST documented in this encounter Plan of Treatment Not on file documented as of this encounter Procedures Procedure Name Priority Date/Time Associated Diagnosis Comments TELEMETRY REPORT 09/23/2015 5:16 PM TRANSPORTATION MAINTENANCE SPECIALIST EKG 12-LEAD Stat 09/22/2015 5:06 PM TRANSPORTATION MAINTENANCE SPECIALIST documented in this encounter Results * TELEMETRY REPORT (09/23/2015 5:16 PM TRANSPORTATION MAINTENANCE SPECIALIST) Provider Scanning ECG ORDERABLES * EKG 12-LEAD (09/22/2015 5:06 PM TRANSPORTATION MAINTENANCE SPECIALIST) 09/22/2015 5:06 PM TRANSPORTATION MAINTENANCE SPECIALIST Narrative INTERFACE SYSTEM - 09/23/2015 12:27 PM TRANSPORTATION MAINTENANCE SPECIALIST ? Stationary ECG Study ? [facility] ? Test Date: ?09/22/2015 5:06 PM Pat Name: ? VINCENT CORPUS ? Department: ?? 16 ?Room: ? 29 29 Gender: ? M ?Psychologist Private Practice: ?? [email or web address] : ?1970 ? Requested By: EDWIN Sagastume Order Number: [id number] ?Reading : ?? Henry Barboza ? Measurements Intervals ?[place] ? Rate: ? 79 ? P: ?14 [place]: ? 159 ?QRS: ?40 QRSD: ? 102 ?T: ?-2 QT: ? 360 ? QTc: ?413 ? Interpretive Statements ? SINUS RHYTHM Electronically Signed On 09-23-2015 12:27:51 TRANSPORTATION MAINTENANCE SPECIALIST by Henry Barboza Procedure Note Provider, Historical - 09/23/2015 Stationary ECG Study [facility] Test Date: 09/22/2015 5:06 PM Pat Name: WADE KELLY Department: 16 Room: 29 29 Gender: M Psychologist Private Practice: [email or web address] : 1970 Requested By: EDWIN Sagastume Order Number: [id number] Reading MD: Henry Barboza Measurements Intervals [place] Rate: 79 P: 14 [place]: 159 QRS: 40 QRSD: 102 T: -2 QT: 360 QTc: 413 Interpretive Statements SINUS RHYTHM Electronically Signed On 09-23-2015 12:27:51 TRANSPORTATION MAINTENANCE SPECIALIST by Henry Barboza Edwin Rice MD ECG ORDERABLES Performing Organization Address City/State/[facility] Co de Phone Number INTERFACE SYSTEM Refer to clinic/hospital department documented in this encounter Visit Diagnoses Diagnosis Essential hypertension- Primary Unspecified essential hypertension documented in this encounter Care Teams Necktie Operator Pockets And Pieces Relationship Specialty Start Date End Date Primitivo Zhang MD PCP - General Emergency Medicine 07/02/15 11/25/15 documented as of this encounter
--- OUTSIDE RECORDS SUMMARY | 2024-09-10 04:21 | XMS_ITS | Encounter Summary ---
Author Organization [facility] Address 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 Name Role Phone Unavailable Primary Care Provider Unavailabl e Reason for Referral * Consult, Test & Treat (Urgent) - Closed Specialty Diagnoses / Procedures Referred By Contac t Referred To Contact Interventional Cardiology Diagnoses Diabetes mellitus type 2, controlled, without complications Sleep apnea, unspecified sleep apnea type Benign hypertension Howard Trinidad MD NO ADDRESS ON FILE Raza Anton MD [address] [place] [address] Referral ID Status Reason Start Date Expiration Date V isits Requested Visits Authorized [id number] Closed Ordering Dept To Review ([facility]) 12/05/2015 12/04/2016 1 1 Reason for Visit * Reason Comments Elevated Blood Pressure x 4 months ER Follow Up 3-22 [facility]; confusio n, lightheaded Anxiety Neck Pain left side x 2 years Jaw Pain left x 2 days Encounter Details Date Type Department Care Team (Latest Contact Info) Description 12/05/2015 3:00 PM CDT Office Visit [facility] [id number] [place] [address] [address] [place] [id number] Howard Trinidad MD NO ADDRESS ON FILE Diabetes mellitus type 2, controlled, without complications (Primary Dx); Sleep apnea, unspecified sleep apnea type; Benign hypertension Social History Tobacco Use Types Packs/Day [...] Sign Reading Time Taken Comments Blood Pressure 150/96 12/05/2015 3:07 PM CDT pt machine 162 / 101 Pulse 80 12/05/2015 3:07 PM CDT Temperature - - Respiratory Rate 20 12/05/2015 3:07 PM CDT Oxygen Saturation - - Inhaled Oxygen Concentration - - Weight 137.9 kg (304 lb) 12/05/2015 3:0 7 PM CDT Height 188 cm (6' 2 ) 12/05/2015 3:07 PM CDT Body Mass Index 39.03 12/05/2015 3:07 PM CDT documented in this encounter Progress Notes * Howard Trinidad MD - 12/05/2015 3:19 PM CDT Chief Complaint Patient presents with ??? Elevated Blood Pressure x 4 months ??? ER Follow Up 3-22 [facility]; confusion, lightheaded ??? Anxiety ??? Neck Pain left side x 2 years ??? Jaw Pain left x 2 days Subjective: Carlos Mcgee is a 45 y.o. male. Patient Active Problem List Diagnosis Code ??? Cervical stenosis of spinal canal M48.02 ??? Costochondral chest pain R07.1 ??? Paresthesias with subjective weakness R20.2, R53.1 ??? PTSD (post-traumatic stress disorder) F43.10 ??? GERD (gastroesophageal reflux disease) K21.9 ??? Diabetes mellitus type 2, controlled, without complications E11.9 ??? Blurry vision, bilateral H53.8 ??? Anxiety F41.9 ??? Neck pain M54.2 ??? Chest pain R07.9 ??? Pleuritic chest pain R07.81 ??? 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 Esophageal reflux K21.9 ??? Diverticulitis of colon K57.32 ??? Depression F32.9 ??? Non-specific colitis K52.9 ??? Acute abdominal pain R10.0 ??? Depression with anxiety F41.8 ??? Microcytic anemia D50.9 ??? SOB (shortness of breath) R06.02 Allergies Allergen Reactions ??? Bactrim [Sulfamethoxazole-Trimethoprim] Hives ??? Bystolic [Nebivolol] Swelling lips ??? Carvedilol Hives ??? Clindamycin Anaphylaxis ??? Clonidine Anxiety ??? Contrast [Iodinated Contrast Media - Iv Dye] Hives ??? Hydralazine Confusion ??? Levaquin [Levofloxacin] Hives ??? Lidocaine Unknown ??? Lisinopril Anaphylaxis ??? Morphine Hallucination ??? Paxil [Paroxetine Hcl] Anxiety ??? Percocet [Oxycodone-Acetaminophen] Dizziness ??? Sulfa (Sulfonamide Antibiotics) Rash Past Medical History Diagnosis Date ??? Depression anxiety ??? Anxiety ??? Panic attacks ??? Diverticulitis ??? Diabetes ??? HTN (hypertension) ??? Chronic neck pain Past Surgical History Procedure Laterality Date ??? Chg removal gallbladder ??? Hx cholecystectomy Family History Problem Relation Age of Onset ??? Stroke Father ??? Other Father blood clots ??? Diabetes Maternal Grandmother ??? Diabetes Maternal Grandfather History Substance Use Topics ??? Smoking status: Former Smoker -- 1.00 packs/day for 2 years Types: Cigarettes Quit date: 09/13/1995 ??? Smokeless tobacco: Never Used ??? Alcohol Use: No History Smoking status ??? Former Smoker -- 1.00 packs/day for 2 years ??? Types: Cigarettes ??? Quit date: 09/13/1995 Smokeless tobacco ??? Never Used Current Outpatient Prescriptions on File Prior to Visit Medication Sig Dispense Refill ??? atenolol (TENORMIN) 100 mg tablet Take 0.5 Tablet (50 mg) by mouth 2 times daily. (Patient taking differently: Take 100 mg by mouth daily . ) 10 Tablet 0 ??? acetaminophen (TYLENOL) 325 mg tablet Take 650 mg by mouth nightly as needed . ??? ALPRAZolam (XANAX) 2 mg tablet Take 1 Tablet (2 mg) by mouth 3 times daily as needed for Anxiety. 60 Tablet 0 ??? omeprazole (PRILOSEC) 40 mg Capsule, Delayed Release(E.C.) Take 1 Cap (40 mg) by mouth daily. (Patient taking differently: Take 40 mg by mouth daily . ) 30 Cap None ??? albuterol 90 mcg/Actuation HFA inhaler Take 2 Puffs by inhalation every 6 hours as needed for Shortness of Breath. ??? [DISCONTINUED] cloNIDine HCl (CATAPRES) 0.1 mg tablet Take 1 Tablet (0.1 mg) by mouth every 8 hours as needed for Blood Pressure. 30 Tablet 0 No current facility-administered medications on file prior to visit. Lab Results Component Value Date/Time HEMOGLOBIN A1C 6.5* 07/02/2015 02:10 AM CREATININE 0.90 12/03/2015 09:33 PM CREATININE 1.08 11/10/2014 06:40 AM POC CREATININE 0.90 07/24/2015 08:19 PM No results found for: CHOLTOT, HDL, LDLCALC, LDLDIRECT, TRIGLYCERIDE Lab Results Component Value Date/Time CREATININE 0.90 12/03/2015 09:33 PM CREATININE 1.08 11/10/2014 06:40 AM POC CREATININE 0.90 07/24/2015 08:19 PM BUN 8 12/03/2015 09:33 PM BUN 6 11/10/2014 06:40 AM SODIUM 142 12/03/2015 09:33 PM SODIUM 139 11/10/2014 06:40 AM POTASSIUM 3.2* 12/03/2015 09:33 PM POTASSIUM 3.5 11/10/2014 06:40 AM CHLORIDE 101 12/03/2015 09:33 PM CHLORIDE 100 11/10/2014 06:40 AM CO2 27 12/03/2015 09:33 PM CO2 26 11/10/2014 06:40 AM GFR >60 12/03/2015 09:33 PM GFR >60 11/10/2014 06:40 AM Lab Results Component Value Date/Time WBC 5.8 12/03/2015 09:33 PM WBC 5.8 11/10/2014 06:40 AM HEMOGLOBIN 11.6* 12/03/2015 09:33 PM HEMOGLOBIN 13.3* 11/10/2014 06:40 AM HEMATOCRIT 39.2* 12/03/2015 09:33 PM HEMATOCRIT 42.8 11/10/2014 06:40 AM PLATELETS 183 12/03/2015 09:33 PM PLATELETS 190 11/10/2014 06:40 AM MCV 67.9* 12/03/2015 09:33 PM MCV 72.7* 11/10/2014 06:40 AM IRON 32* 07/02/2015 02:10 AM TIBC 431 07/02/2015 02:10 AM FERRITIN 9.5* 07/02/2015 02:10 AM Lab Results Component Value Date/Time ALT 38 12/03/2015 09:33 PM ALT 54* 11/10/2014 06:40 AM AST 35 12/03/2015 09:33 PM AST 46* 11/10/2014 06:40 AM ALKALINE PHOSPHATASE 64 12/03/2015 09:33 PM ALKALINE PHOSPHATASE 78 11/10/2014 06:40 AM BILIRUBIN TOTAL 0.8 12/03/2015 09:33 PM BILIRUBIN TOTAL 1.2 11/10/2014 06:40 AM No results found for: TSH, TSHULTRA, THYROIDSTIM, T3, T3FREE, S5ULQKYC, T4, T4FREE, TPO, THROIDAB, THYROIDMI This medical record reflects the History of Present Illness as obtained by myself in discussion with the patient. HPI: Mr. Mcgee complains of the following 1# [facility] referral line 2# saw dr Yen In the past had 30-40 min discussion about his issues has been told to see [facility] [employer] in the past ... Also it Seemed no matter what type of anti hypertensive med I discussed patienthad had some reaction to it except possible calcium channel blockers discussed tapering off atenolol and starting verapamil only after off atenolol referred to cardiology to see me next week... With all his anxiety issues pt should be under care of physciatrist as well as with his other somatic complaints plan as noted Chief Complaint Patient presents with ??? Elevated Blood Pressure x 4 months ??? ER Follow Up 3- [facility]; confusion, lightheaded ??? Anxiety ??? Neck Pain left side x 2 years ??? Jaw Pain left x 2 days 3# [facility] Review of Systems: During the review of systems, the following significant history is obtained from the patient: Constitutional: As noted above and documented in this note Skin: no personal history of skin changes Heent: As noted above and documented in this note Respiratory: no recent issues cough, Cardiovascular: no recent hx chest pain, Gastrointestinal: no recent hx abdominal pain, change in bowel habits, Genitourinary: No recent hx of dysuria, frequency, hematuria, Hematologic, Oncologic, Lymphatic: no recent hx of bruising, Musculoskeletal: As noted above and documented in this note Neurological: As noted above and documented in this note Behavior, Psychologic: As noted above and documented in this note Endocrine: no recent hx sudden change temperature intolerance Allergy: no recent hx hives, episodic puritis, Exam/Objective: Normal Male: Blood pressure 150/96, pulse 80, resp. rate 20, height 6' 2 (1.88 m), weight 137.893 kg (304 lb). General appearance: active, alert, cooperative, no distress, Skin: Skin color, texture, turgor normal. No rashes or lesions Heent; normocephalic,perrla ,eom nl Neck: supple,no adenopathy, thyroid: not enlarged, symmetric, no tenderness masses Back: symmetric Lungs: breath sounds equal, , normal respiratory effort Heart: regular rate and rhythm, S1, S2 normal, no murmur, Abdomen: soft, non-tender. Bowel sounds normal. No masses, no organomegaly Male genitalia: normal external genitale Extremities/Muscle skeletal: extremities normal,no edema, intact distal pulses, moves all extremities equally, nl general strength Lymph nodes: No abnormal adenopathy noted Psy: no major behavior issues Neurologic: Grossly normal, grossly intact, normal speech, normal muscle tone Assessment and Plan: 1# 2#ASSESSMENT: Encounter Diagnoses Name Primary? Diabetes mellitus type 2, controlled, without complications Yes ??? Sleep apnea, unspecified sleep apnea type ??? Benign hypertension PLAN: Orders Placed This Encounter ??? AMB REFERRAL TO CARDIOLOGY ??? verapamil (CALAN) 40 mg Tablet 3# 4# Appropriate medications prescribed (see detailed AVS). Appropriate patient instructions provided (see detailed AVS). Follow-up as I have indicated. Medications and options explained to include common side effects. Understanding of medications, course, diagnosis, and expectations were expressed by patient/guardian. documented in this encounter Plan of Treatment Scheduled Referrals Name Type Priority Associated Diagnoses Orde r Schedule AMB REFERRAL TO CARDIOLOGY Outpatient Referral Routine Diabetes mellitus type 2, controlled, without complications Sleep apnea, unspecified sleep apnea type Benign hypertension Ordered: 12/05/2015 documented as of this encounter Visit Diagnoses Diagnosis Diabetes mellitus type 2, controlled, without complications- Primary Sleep apnea, unspecified sleep apnea type Benign hypertension Essential hypertension, benign documented in this encounter
--- OUTSIDE RECORDS SUMMARY | 2024-09-10 04:21 | XMS_ITS | Encounter Summary ---
Author Organization RegisterPatient Address [address] [place] [address] Care Team Providers Care Frame Builder Name Role Phone Unavailable Primary Care Provider Unavailabl e Reason for Visit * Reason Comments Epigastric Pain Pt presents with c/o heartburn x 1 week. Also reports associated SOB. Went to OSH for sx 4 days ago, no findings. Pt currently being tx for diverticulitis * Auth/Cert Specialty Diagnoses / Procedures Referred By Redd t Referred To Contact Emergency Medicine [facility] Emergency Dept [address] [place] [address] Referral ID Status Reason Start Date Expiration Date Visits Re quested Visits Authorized [id number] 1 1 Encounter Details Date Type Department Care Team (Late st Contact Info) Description 05/18/2015 7:15 AM CDT - 05/18/2015 9:56 AM CDT Emergency [facility] Emergency Department [address] [place] [address] Tramaine Reyez MD [address] [place] [address] Epigastric pain (Primary Dx); Recurrent sinus infections Discharge Disposition: Home or Self Care Social [...] Reading Time Taken Comments Blood Pressure 125/80 05/18/2015 9:00 AM CDT Pulse 78 05/18/2015 9:00 AM CDT Temperature 37.2 ??C (99 ??F) 05/18/2015 7:21 AM CDT Respiratory Rate 16 05/18/2015 9:00 AM CDT Oxygen Saturation 99% 05/18/2015 9:00 AM CDT Inhaled Oxygen Concentration - - Weight 106.6 kg (235 lb) 05/18/2015 7:21 AM CDT Height 188 cm (6' 2 ) 05/18/2015 7:21 AM CDT Body Mass Index 30.17 05/18/2015 7:21 AM CDT documented in this encounter Discharge Instructions * Attachments The following attachments cannot be sent through Care Everywhere. * ABDOMINAL PAIN (FRISIAN) * CHRONIC SINUSITIS (FRISIAN) documented in this encounter Medications at Time of Discharge Medication Sig Dispensed Refills Start Date End Date albuterol 90 mcg/Actuation HFA inhaler Take 2 Puffs by inhalation every 6 hours as needed for Shortness of Breath. hyoscyamine 0.125 mg Tablet, SublingualIndications:i rritable bowel syndrome Place 0.125 mg under tongue [...] as of this encounter Progress Notes * Shawanda Bolanos - 05/24/2015 3:40 PM CDT Patient referred for assistance establishing PCP care. Attempted to reach patient by phone. Left Voicemail and will await return call. documented in this encounter ED Notes * Diana Parnell RN - 05/19/2015 7:43 AM CDT Spoke to patient regarding concerns about ongoing symptoms. * Angi Nolasco RN - 05/18/2015 9:55 AM CDT Patient discharged to home via ambulation with self. Discharge information, including an overview of treatment received, after-visit instructions, and recommendation for follow-up care provided to patient. Questions answered, understanding of discharge instruction verbalized. Printed copy given to patient Pt info given to CRC * Angi Nolasco RN - 05/18/2015 9:21 AM CDT Chaplain Roro Prasad at pt bedside * Angi Nolasco RN - 05/18/2015 8:[address] Reyez and this RN to pt bedside for re-eval. Dr Reyez discussing all lab tests in depth withpt. Follow up recommendations also discussed. Pt continues to ask about multiple other ailments including RUSSO, sinus drainage, home BP readings and refills on abx. 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 This RN to bedside. Pt talking on phone. Pt questioning what the monitor readingsmean. Pt educated. Pt requesting BP be retaken. Pt then complaining about BP cuff. BP cuff removed for comfort. * Angi Nolasco RN - 05/18/2015 8:35 AM CDT Pt requesting to speak to pastoral services. Called Roro paul whom is current in trauma/ neuro ICU dealing with multiple crises. States she will try to see pt within the hour best she can, pt informed * Angi Nolasco RN - 05/18/2015 8:27 AM CDT Pt reports some relief from Maalox. given. Patient/family has been informed about benefitsand any potential clinically significant side effects or other concerns regarding the administration of the drug they have just been given. * Angi Nolasco RN - 05/18/2015 8:20 AM CDT Maalox given. Patient/family has been informed about benefits and any potential clinically significant side effects or other concerns regarding the administration of the drug they have just been given. Pt updated on POC, aware of plans to get when arrives from pharmacy. Pt asked what is, I explained that it is a combination of four medications. Pt then asking multiple questions about med including: what the exact MOA medications are, the specific drug class of each medication, how would we know if he has any kind of reaction to any of the meds, if he does have a reaction howwill we know what medication caused the reaction and how we will treat any said reaction. 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 Asking if CV monitor can be repositioned in room so he can constantly watch his VS. Further states he thinks our BP readings are incorrect because home readings all always high. Pt speaking on cell phone during interaction * Tramaine Reyez MD - 05/18/2015 7:49 AM CDT HISTORY OF PRESENT ILLNESS Carlos Kelly, a 45 y.o. male presents to the ED with a Chief Complaint of Epigastric Pain Subjective History provided by: The patient and medical records Arrived by: Private vehicle Arrived from: Home Epigastric Pain The patient is a 45 y/o male who presents with a multitude of complaints. His reported initial complaint is for heartburn. He reports this has been an ongoing issue for him for the last 2 weeks or so. Relatively constant. Not improved with home meds including prilosec, phenergan, and carafate (which he reports he began yesterday of his own volition - was a prescription he had received from another physician that he had not previously filled). No temporal association with foods. No relieving or exacerbating factors. Also complains the pain is a soreness in BUQ. Non-radiating. He then rapidlytransitions to discussing that he recently put himself on cipro and flagyl for what he thinks is recurrent diverticulitis as well. States I've had it before and know what it feels like . [facility], at which time he reportedly had negative labs (including cardiac enzymes) and EKG. Was discharged home but expresses dissatisfaction with the physician interaction. I then asked who his PCP and GI doctors are. He states he has fired them within the last few weeks. He states these prescriptions that he has initiated for himself since then (carafate, cipro, flagyl) were refills that he had not previously filled. He then begins discussing a recent visit to his chiropractor for recurrent neck pain - thinks that the adjustments have been too aggressive. Denies neck or arm pain to me though. He also reports that he has been having significant drainage from nose, eyes, and bilateral ear pain (L>R). After all this, as I'm trying to exit the room, he calls me back in to ask about the dizziness and headache . He had not previously mentionedthis, then goes on to report dizziness and bifrontal head fullness with the drainage that improves after using a NetiPot. This is similar to previous sinusitis exacerbations. In fact, he states he recently completed a course of augmentin and steroids, and states that the heartburn began thereafter.When he asked what I would be doing for him, I told him that I would likely give him a GI cocktail.He rapidly knew that he was allergic to the lidocaine contained therein. REVIEW OF SYSTEMS Review of Systems At [...] HFA INHALER ALPRAZOLAM (XANAX) 2 MG TABLET CIPROFLOXACIN HCL (CIPRO) 500 MG TABLET CYCLOBENZAPRINE (FLEXERIL) 5 MG TABLET FLUTICASONE (FLONASE) 50 MCG/SPRAY BOTH NOSTRIL SPSN HYDROCODONE-ACETAMINOPHEN (NORCO) 5-325 MG TABLET HYOSCYAMINE 0.125 MG TABLET, SUBLINGUAL IBUPROFEN (MOTRIN) 800 MG TABLET METRONIDAZOLE (FLAGYL) 500 MG TABLET OMEPRAZOLE (PRILOSEC) 40 MG CAPSULE, DELAYED RELEASE(E.C.) ONDANSETRON (ZOFRAN ODT) 4 MG TABLET, RAPID DISSOLVE PROMETHAZINE (PHENERGAN) 25 MG ORAL TABLET SUCRALFATE (CARAFATE) 1 GRAM TABLET Medications Modified during this Encounter Medications Discontinued during this Encounter Objective PHYSICAL EXAM INITIAL VS BP: 139/69 mmHg (05/18/15 0800), Heart Rate: 88 bpm (05/18/15720), Resp: 18 (05/18/15720), Temp: 99 ??F (37.2 ??C) (05/18/15720), Temp src: Oral (05/18/15720), SpO2: 99 % (05/18/15720), Height: 6' 2 (188 cm) (05/18/15720), Weight: 106.595 kg (05/18/15720), BMI (Calculated): 30.24 (05/18/15720) No LMP for male patient. Physical Exam Constitutional: This is a well-developed, well-nourished male lying in the bed in no acute distress. Head: Normocephalic, atraumatic. Eyes: Pupils are PERRL, EOMI. Sclera non-icteric. ENT: Oropharynx is clear. Moist mucous membranes. TMs clear and intact bilaterally. Neck: Supple. No meningismus. Respiratory: Good air entry bilaterally. Normal respiratory effort. No wheezes, rales, or ronchi. CV: Regular rate and rhythm without murmur, rub or gallop. GI: Soft, non-tender. Non-distended. No rebound, guarding, or rigidity. Musculoskeletal: Moves all four extremities. No gross deformity. Skin: Warm and dry. No rash. Neurologic: Cranial nerves II, III, IV, and VII intact and symmetric bilaterally. Sensation is intact to light touch throughout. Psychiatric: Alert and oriented x 3. Judgment and insight are intact. DIAGNOSTICS LAB: Results for orders placed or performed during the hospital encounter of 05/18/15 (from the past 24 hour(s)) CBC WITH DIFFERENTIAL Result Value Ref Range WBC 5.2 4.0-9.8 K/uL RBC 5.73 (H) 3.90-4.90 M/uL HEMOGLOBIN 12.5 (L) 13.6-16.5 g/dL HEMATOCRIT 40.2 40.0-48.0 % MCV 70.2 (L) 82.0-99.0 fL MCH 21.8 (L) 27.2-32.6 pg MCHC 31.1 30.0-36.0 g/dL RDW 16.8 (H) 11.5-14.5 % RDW-STDEV 42.0 37.1-48.7 fL PLATELETS 167 140-350 K/uL MPV 9.6 9.3-12.4 fL NEUTROPHILS 61 45-70 % LYMPHOCYTES 31 16-45 % MONOCYTES 6 3-13 % EOSINOPHILS 2 <7 % BASOPHILS 0 <3 % NEUTROPHIL ABSOLUTE 3.18 1.90-7.00 K/uL LYMPHOCYTE ABSOLUTE 1.59 0.70-4.50 K/uL MONOCYTE ABSOLUTE 0.32 0.10-1.30 K/uL EOSINOPHIL ABSOLUTE 0.11 <0.70 K/uL BASOPHILS ABSOLUTE 0.02 <0.30 K/uL COMPREHENSIVE METABOLIC PANEL Result Value Ref Range SODIUM 140 136-145 mmol/L POTASSIUM 3.4 (L) 3.5-5.0 mmol/L CHLORIDE 101 98-107 mmol/L CO2 26 22-29 mmol/L CALCIUM 9.3 8.6-10.2 mg/dL BUN 13 6-20 mg/dL CREATININE 0.89 0.67-1.17 mg/dL GLUCOSE 110 (H) 79-99 mg/dL TOTAL PROTEIN 7.7 6.7-8.6 g/dL ALBUMIN 4.4 3.5-5.2 g/dL BILIRUBIN TOTAL 1.1 0.3-1.2 mg/dL ALKALINE PHOSPHATASE 79 40-129 U/L AST 37 <41 U/L ALT 53 (H) <42 U/L GFR >60 >=60 mL/min/1.73 sq meter GFR, >60 >=60 mL/min/1.73 sq meter ANION GAP 13 8-16 mmol/L LIPASE Result Value Ref Range LIPASE 42 13-60 U/L CARDIAC ENZYMES Result Value Ref Range TROPONIN T <0.01 <0.04 ng/mL RADIOLOGY: No orders to display EKG: as interpreted by me demonstrates a NSR with a rate of 88. Normal axis and intervals. No STEMI. No previous from which to compare. There is no significant change when compared to previous, dated03/03/15. PROCEDURES Procedures MEDICAL DECISION MAKING AND PLAN OF CARE 45 y.o. male who presents with multiple complaints and frequent visits here and elsewhere (please see note from Dr. Amezcua from 01/29/15). With reviewing triage note/vitals as well as initial encounter with patient and exam, I had considered at least at one time in the differential: diverticulitis, pancreatitis, ACS, colitis. I reviewedprior records and noted previous hx of diverticulitis in the past. He has also had a negative stress test here 9 months ago. Initial blood work and imaging included: EKG, basic labs. Medications given initially were: Maalox and donnital. 8:34 AM Patient now also reports that he took Levsin this morning. He is requesting pastoral services as well. Will ask them to come talk to him. 9:07 AM Or return to the bedside to review lab results with patient. I did so with his nurse, Angi. While discussing his reassured workup here in the emergency department, the patient continues to add further complaints including some shortness of breath. He is also asking about elevated blood pressures on multiple devices which he has bought for home use. Blood pressure in the emergency department is 125/80. He states that I don't think it's costochondritis or my xiphoid cartilage . He now has that he has been taking ibuprofen for several days for this pain. Discussed with them that findings mightrepresent some gastritis and/or peptic ulcer disease. Advised against NSAIDs and that he should consider Tylenol. I have reiterated to him multiple times the importance of a primary care physician tomanage all of his various medical issues and complaints. Also reiterated to him the importance of not initiating her discontinuing medications on his own, specifically Carafate, ciprofloxacin and Flagyl. The patient will be discharged home at this time with referrals [facility] and outpatient GI. When asked to the management supervisor would be, I advised him that would be Dr. Andrew. He states that he has seen Dr. Andrew in the past, and is requesting someone else. I advised him that he could receive that information from the referral line as well. REEVALUATION CASE DISCUSSED Medications Administered During the ED Stay from 05/18/2015714 to 05/18/2015906 Date/Time Order Dose Route Action 05/18/2015814 aluminum-magnesium hydroxide (MAALOX) 200-200 mg/5 mL oral suspension 10 mL 10 mL Oral Given 05/18/2015827 HZBMgsiev-nsxzyumexxz-dcvwptrj-scopolamine () tablet 1 Tablet 1 Tablet OralGiven . New Prescriptions for this Encounter LAST VS BP: 125/80 mmHg (05/18/15899), Heart Rate: 79 bpm (05/18/15899), Resp: 16 (05/18/15899), Temp: 99 ??F (37.2 ??C) (05/18/15720), Temp src: Oral (05/18/15720), SpO2: 99 % (05/18/15899) CLINICAL IMPRESSION Final diagnoses: [789.06] Epigastric pain (Primary) [473.9] Recurrent sinus infections CODING MDM Coding Reviewed: vitals and previous chart Reviewed previous: labs, ECG, x-ray and CT scan Interpretation: labs, ECG, cardiac monitoring and SP02 I have reviewed nursing notes and agree unless otherwise mentioned. DISPOSITION, EDUCATION AND MEDICATION RECONCILIATION Medications reconciled. See after visit summary for patient education on discharged patients. ATTESTATION STATEMENTS This note was transcribed using [employer] speaking computerized voice recognition without a human supervisor case loading. This report may or may not have been adjusted for typographical, grammaticaland syntax errors. * Angi Nolasco RN - 05/18/2015 7:25 AM CDT Pt presents with c/o diffuse epigastric and upper abd pain progressing over the past week. Pt reports he has also been having heartburn, indigestion, and nausea. Taking Prilosec, Zofran and Phenerganwith some relief of GI sx. Pt states he has hx of diverticuilits and diagnosed self with flare up yesterday and started taking Cipro and Flagyl. Pt was seen at OSH 4 days ago d/t indigestion/ heartburn and SOB, had blood work and other tests w/o findings but states they did nothing for me. Pt rambling during time of eval and reports multiple other medical complaints including chronic neck pain, ear pain and sinus pain. Pt speaks with ease. Respirations are unlabored. Pt does not c/o pain into chest at this time, localizes pain to epigastrium only. Skin is PWD, EKG done and full director cardiac placed. Pt states he recently fired all his doctors. * Verna Rosario E.D., RN - 05/18/2015 7:15 AM CDT Bed: 11 Expected date: Expected time: Means of arrival: Comments: 45y M CP documented in this encounter Miscellaneous Notes * Care Plan - Angi Soares - 05/18/2015 9:57 AM CDT Problem: Spiritual Distress, Risk/Actual (Adult) Intervention: Assist with Spiritual Activities Called as patient was requesting to see a machine cementer; he admits he has anxiety issues which he believes contributes to his reported pain. As we talked it became clear that Robert has reconciliation/forgiveness issues with family; provided prayer for God's keke to help him forgive and let go of past hu rts/resentments. chaplain Michel [phone] documented in this encounter Plan of Treatment Not on file documented as of this encounter Procedures Procedure Name Priority Date/Time Associated Diagnosis Comments TELEMETRY REPORT 05/19/2015 8:23 AM CDT EXTRA TUBE (BLUE) Stat 05/18/2015 7:2 5 AM CDT EXTRA TUBE Stat 05/18/2015 7:25 AM CDT CARDIAC ENZYMES Stat 05/18/2015 7:25 AM CDT CBC WITH DIFFERENTIAL Stat 05/18/2015 7:25 AM CDT LIPASE Stat 05/18/2015 7:25 AM CDT COMPREHENSIVE METABOLIC PANEL Stat 05/18/2015 7:25 AM CDT EKG 12-LEAD Stat 05/18/2015 7:22 AM CDT documented in this encounter Results * TELEMETRY REPORT (05/19/2015 8:23 AM CDT) Provider Scanning ECG ORDERABLES * EXTRA TUBE (BLUE) (05/18/2015 7:25 AM CDT) Blood Collection / Unknown 05/18/2015 7:25 AM CDT 05/18/2015 7:41 AM CDT External Provider [facility] HEMATOLOGY ORDER [facility]# [id number] [address] [facility] [place] [address] * CARDIAC ENZYMES (05/18/2015 7:25 AM CDT) [facility] TROPONIN T <0.01 <0.04 ng/mL 05/18/2015 8:34 AM CDT [facility] Blood Collection / Unknown 05/18/2015 7:25 AM CDT 05/18/2015 7:40 AM CDT Tramaine Reyez MD CHEMISTRY ORDERAB LES Performing Organization Address City/[facility]/ZIP Co de Phone Number [facility] [id number] [address] [facility] [place] [address] * LIPASE (05/18/2015 7:25 AM CDT) LIPASE 42 13 - 60 U/L 05/18/2015 8:45 AM T [employer] [facility] Blood Collection / Unknown 05/18/2015 7:25 AM CDT 05/18/2015 7:40 AM CDT Tramaine Reyez MD CHEMISTRY ORDERAB LES [facility] LABORATORY SERVICES [facility] CLIA# [id number] [address] [facility] [place] [address] * (ABNORMAL) COMPREHENSIVE METABOLIC PANEL (05/18/2015 7:25 AM CDT) SODIUM 140 136 - 145 mmol/L 05/18/2015 8:45 AM T [employer] [facility] POTASSIUM 3.4(L) 3.5 - 5.0 mmol/L 05/18/2015 8:45 AM T [employer] [facility] CHLORIDE 101 98 - 107 mmol/L 05/18/2015 8:45 AM T [employer] [facility] CO2 26 22 - 29 mmol/L 05/18/2015 8:45 AM T [employer] [facility] CALCIUM 9.3 8.6 - 10.2 mg/dL 05/18/2015 8:45 AM T [employer] [facility] BUN 13 6 - 20 mg/dL 05/18/2015 8:45 AM T [employer] [facility] CREATININE 0.89 0.67 - 1.17 mg/dL 05/18/2015 8:45 AM T [employer] [facility] GLUCOSE 110(H) 79 - 99 mg/dL 05/18/2015 8:45 AM T [employer] [facility] TOTAL PROTEIN 7.7 6.7 - 8.6 g/dL 05/18/2015 8:45 AM T [employer] [facility] ALBUMIN 4.4 3.5 - 5.2 g/dL 05/18/2015 8:45 AM T [employer] [facility] BILIRUBIN TOTAL 1.1 0.3 - 1.2 mg/dL 05/18/2015 8:45 AM CDT [facility] LABORATORY SERVICES [facility] ALKALINE PHOSPHATASE 79 40 - 129 U/L 05/18/2015 8:45 AM T [facility] LABORATORY [facility] AST 37 <41 U/L 05/18/2015 8:45 AM T [facility] LABORATORY [facility] ALT 53(H) <42 U/L 05/18/2015 8:45 AM CDT [facility] LABORATORY [facility] GFR >60 >=60 mL/min/1.7 3 sq meter 05/18/2015 8:45 AM T [facility] SERVICES - [facility] Comment: eGFR has not been validated for [...] GFR, >60 >=60 mL/min/1.7 3 sq meter 05/18/2015 8:45 AM CDT [facility] LABORATORY SERVICES [facility] ANION GAP 13 8 - 16 mmol/L 05/18/2015 8:45 AM [facility] LABORATORY [facility] Blood Collection / Unknown 05/18/2015 7:25 AM CDT 05/18/2015 7:40 AM CDT Tramaine Reyez MD CHEMISTRY ORDERAB LES [facility] [employer] [facility] [id number] [address] [facility] [place] [place] [address] * (ABNORMAL) CBC WITH DIFFERENTIAL (05/18/2015 7:25 AM CDT) WBC 5.2 4.0 - 9.8 K/uL 05/18/2015 8:12 AM CDT [facility] LABORATORY [facility] RBC 5.73(H) 3.90 - 4.90 M/uL 05/18/2015 8:12 AM CDT [employer] [facility] HEMOGLOBIN 12.5(L) 13.6 - 16.5 g/dL 05/18/2015 8:12 AM CDT [employer] [facility] HEMATOCRIT 40.2 40.0 - 48.0 % 05/18/2015 8:12 AM CDT [employer] [facility] MCV 70.2(L) 82.0 - 99.0 fL 05/18/2015 8:12 AM CDT [employer] [facility] MCH 21.8(L) 27.2 - 32.6 pg 05/18/2015 8:12 AM CDT [employer] [facility] MCHC 31.1 30.0 - 36.0 g/dL 05/18/2015 8:12 AM CDT [employer] [facility] RDW 16.8(H) 11.5 - 14.5 % 05/18/2015 8:12 AM CDT [employer] [facility] RDW-STDEV 42.0 37.1 - 48.7 fL 05/18/2015 8:12 AM CDT [employer] [facility] PLATELETS 167 140 - 350 K/uL 05/18/2015 8:12 AM CDT [employer] [facility] MPV 9.6 9.3 - 12.4 fL 05/18/2015 8:12 AM CDT [employer] [facility] NEUTROPHILS 61 45 - 70 % 05/18/2015 8:12 AM CDT [employer] [facility] LYMPHOCYTES 31 16 - 45 % 05/18/2015 8:12 AM CDT [employer] [facility] MONOCYTES 6 3 - 13 % 05/18/2015 8:12 AM CDT [employer] [facility] EOSINOPHILS 2 <7 % 05/18/2015 8:12 AM CDT [employer] [facility] - [facility] BASOPHILS 0 <3 % 05/18/2015 8:12 AM CDT [employer] [facility] - . [facility] NEUTROPHIL ABSOLUTE 3.18 1.90 - 7.00 K/uL 05/18/2015 8:12 AM CDT [employer] [facility] - . [facility] LYMPHOCYTE ABSOLUTE 1.59 0.70 - 4.50 K/uL 05/18/2015 8:12 AM CDT [facility] MONOCYTE ABSOLUTE 0.32 0.10 - 1.30 K/uL 05/18/2015 8:12 AM CDT [facility] EOSINOPHIL ABSOLUTE 0.11 <0.70 K/uL 05/18/2015 8:12 AM CDT [facility] BASOPHILS ABSOLUTE 0.02 <0.30 K/uL 05/18/2015 8:12 AM CDT [facility] Blood Collection / Unknown 05/18/2015 7:25 AM CDT 05/18/2015 7:40 AM CDT Tramaine Reyez MD [facility] [id number] [address] [place] [address] * EKG 12-LEAD (05/18/2015 7:22 AM CDT) 05/18/2015 7:22 AM CDT Narrative INTERFACE SYSTEM - 05/19/2015 11:41 AM CDT ? Stationary ECG Study ? [facility] ? Test Date: ?05/18/2015 7:22 AM Pat Name: ? VINCENT CORPUS ? Department: ?? 16 ?Room: ? 11 11 Gender: ? M ?Adult Basic Studies Teacher: ?? conkrc : ?1970 ? Requested By: ?? Order Number: [id number] ?Reading : ?? Leonard Kitchen ? Measurements Intervals ?[place] ? Rate: ? 88 ? P: ?17 CA: ? 148 ?QRS: ?47 QRSD: ? 101 ?T: ?16 QT: ? 348 ? QTc: ?422 ? Interpretive Statements ? SINUS RHYTHM INTERPRETATION BASED ON A DEFAULT AGE OF 40 YEARS Electronically Signed On 05-19-2015 11:41:07 CDT by Leonard Kitchen Procedure Note Provider, Rachael / Leonard Kitchen MD - 11/25/2021 Stationary ECG Study [facility] Test Date: 05/18/2015 7:22 AM Pat Name: CARLOS KELLY Department: 16 Room: 11 11 Gender: M Adult Basic Studies Teacher: bridger : 1970 Requested By: Order Number: [id number] Elsa MD: Leonard Kitchen Measurements Intervals [place] Rate: 88 P: 17 CA: 148 QRS: 47 QRSD: 101 T: 16 QT: 348 QTc: 422 Interpretive Statements SINUS RHYTHM INTERPRETATION BASED ON A DEFAULT AGE OF 40 YEARS Electronically Signed On 05-19-2015 11:41:07 CDT by Leonard Kitchen Tramaine Reyez MD ECG ORDERABLES INTERFACE SYSTEM Refer to clinic/hospital department documented in this encounter Visit Diagnoses Diagnosis Epigastric pain- Primary Abdominal pain, epigastric Recurrent sinus infections Unspecified sinusitis (chronic) documented in this encounter Administered Medications Inactive Administered Medications - up to 3 most recent administrations Medication Order MAR Action Action Date Dose Rate Site aluminum-magnesium hydroxide (MAALOX) 200-200 mg/5 mL oral suspension 10 mL 10 mL, Oral, ONE TIME ONLY, 1 dose, On 05/18/15 at 0815, Routine Given 05/18/2015 8:15 AM CDT 10 mL XDJIjmmbx-vzpjmeerdji-dscltmey-s copolamine () tablet 1 Tablet 1 Tablet, Oral, ONE TIME ONLY, 1 dose, On 05/18/15 at 0815, Routine Given 05/18/2015 8:28 AM CDT 1 Tablet documented in this encounter Active and Recently Administered Medications Times are shown in CDT. Scheduled Medication Order 05/16/2015 05/17/2015 05/18/2015 aluminum-magnesium hydroxide (MAALOX) 200-200 mg/5 mL oral suspension 10 mL (COMPLETED) 10 mL, Oral, ONE TIME ONLY, 1 dose, On 05/18/15 at 0815, Routine 0815 (Given - Provid er: Angi Nolasco RN) ELEVxlobb-zbytbtvkjtk-ppmkgqda-s copolamine () tablet 1 Tablet (COMPLETED) 1 Tablet, Oral, ONE TIME ONLY, 1 dose, On 05/18/15 at 0815, Routine 0828 (Given - Provid er: Angi Nolasco RN) documented in this encounter
--- OUTSIDE RECORDS SUMMARY | 2024-09-10 04:21 | XMS_ITS | Encounter Summary ---
Author Organization [facility] Address [address] [place] [address] Care Team Providers Care Coal Screener Name Role Phone Unavailable Primary Care Provider Unavailabl e Reason for Visit * Reason Onset Date Comments Headache 12/05/2015 Medication Review 12/05/2015 Atenolol Encounter Details Date Type Department Care Team (Late st Contact Info) Description 12/05/2015 Telephone [facility] [address] [place] [address] Howard Trinidad MD NO ADDRESS ON FILE Headache; Medication Review (Atenolol) Social History Tobacco Use Types Packs/Day Years [...] Telephone Encounter - Howard Trinidad MD - 12/06/2015 5:43 PM CDT ok * Telephone Encounter - Alisa Veras - 12/06/2015 3:12 PM CDT PT NOTIFIED. HE SAID THE EXEDRIN IS NOT HELPING HIS HEADACHE. HAS TRIED IBUPROFEN & TYLENOL, TOO. WHAT ELSE CAN HE TRY? CAN HE GET REFERRAL FOR ORTHOPEDIC ABOUT NECK PAIN? HAD MRI DONE 2013, HE THINKS. * Telephone Encounter - Howard Trinidad MD - 12/06/2015 3:01 PM CDT Verapamil withing a few hours ... Atenolol do not know maybe confusion * Telephone Encounter - Alisa Veras - 12/06/2015 1:59 PM CDT Wants to know if the atenolol was causing his sob? Also how fast does the verapamil work? Is it immediate? 2 hours, 4 hours, 1/2 hour? ?? And what about his confusion? What to do about it? * Telephone Encounter - Howard Trinidad MD - 12/06/2015 12:25 PM CDT I gave him written process on how to taper atenolol and not to start verapamil until off of atenolol for a few days... I discussed with patient at great length * Telephone Encounter - Alisa Veras - 12/06/2015 12:18 PM CDT Pt also wants to know about all of his confusion, too. ??? How is he to taper off the Atenolol. Howfast does the verapamil take to start working, immediately? 2 hours, 4 hours? * Telephone Encounter - Alisa Veras - 12/06/2015 11:33 AM CDT Is the atenolol causing his sob? * Telephone Encounter - Howard Trinidad MD - 12/05/2015 5:21 PM CDT Excedrin ok * Telephone Encounter - Alisa Veras - 12/05/2015 4:43 PM CDT Pt wants to know why you are keeping him on Atenolol if it makes him sob / has a hard time breathing. * Telephone Encounter - Shawanda Omalley - 12/05/2015 4:29 PM CDT Patient asks regarding headaches, would it be a problem to take Execedrin? Is it a problem to take with Atenolol? Can Atenolol be causing sx difficulty breathing? Please advise documented in this encounter Plan of Treatment Not on file documented as of this encounter Visit Diagnoses Not on filedocumented in this encounter
--- OUTSIDE RECORDS SUMMARY | 2024-09-10 04:21 | XMS_ITS | Encounter Summary ---
Author Organization [facility] Address [address] [place] [address] Care Team Providers Care Station Agent Name Role Phone Unavailable Primary Care Provider Unavailabl e Reason for Visit * Reason Comments Psychological Evaluation PT arrived to t he ED with c/o panic attacks . Pt is out of his medications since last night . PT has also been having frequent urination. Pt denies any SI / HI . * Auth/Cert Specialty Diagnoses / Procedures Referred By Redd t Referred To Contact Emergency Medicine [facility] Emergency Dept [address] [place] [address] Referral ID Status Reason Start Date Expiration Date Visits Re quested Visits Authorized [id number] 1 1 Encounter Details Date Type Department Care Team (Late st Contact Info) Description 06/11/2016 9:03 PM CDT - 06/11/2016 11:01 PM CDT Emergency [facility] Emergency Department [address] [place] [address] Carlos Dorman MD [address] [place] [address] Anxiety (Primary Dx); Gastroesophageal reflux disease without esophagitis Discharge Disposition: Home or Self Care Social [...] Sign Reading Time Taken Comments Blood Pressure 134/72 06/11/2016 10:30 PM CDT Pulse 87 06/11/2016 10:30 PM CDT Temperature 36.9 ??C (98.4 ??F) 06/11/2016 6:44 PM CD T Respiratory Rate 17 06/11/2016 10:30 PM CDT Oxygen Saturation 97% 06/11/2016 6:44 PM CDT Inhaled Oxygen Concentration - - Weight 118.4 kg (261 lb) 06/11/2016 6:44 PM CDT Height 188 cm (6' 2 ) 06/11/2016 6:44 PM CDT Body Mass Index 33.51 06/11/2016 6:44 PM CDT documented in this encounter Discharge Instructions * Discharge Instructions* Carlos Dorman MD - 06/11/2016 10:20 PM CDT Return for any fevers, chest pain, shortness or breath, worsening pain or symptoms, or any new concerns. Follow up with the referral line to establish a primary doctor. Return for any new concerns. documented in this encounter Medications at Time of Discharge Medication Sig Dispensed Refills Start Date End Date meclizine (ANTIVERT) 25 mg tabletIndications:Diab etes mellitus [...] for Anxiety. 20 Tablet 0 06/11/2016 08/18/2016 omeprazole (PriLOSEC) 40 mg Capsule, Delayed Release(E.C.) Take 1 Capsule (40 mg) by mouth daily. 30 Capsule 0 06/11/2016 07/17/2016 ondansetron (ZOFRAN ODT) 4 mg Tablet, Rapid [...] as of this encounter ED Notes * Suki Mcgowan RN - 06/11/2016 11:00 PM CDT Discharge instructions reviewed with the patient and all questions answered at this time. Follow upcare reviewed. Pt verbalizes understanding of instructions and agrees with discharge and follow up plan. Pt signed discharge instructions. Discharge signature placed in pt chart. * Suki Mcgowan RN - 06/11/2016 10:54 PM CDT MD Dorman at bedside. * Suki Mcgowan RN - 06/11/2016 10:43 PM CDT Pt provided with his belongings. Pt requesting to speak with MD Dorman prior to discharge. MD Dorman aware. * Suki Mcgowan RN - 06/11/2016 9:32 PM CDT Patient/family has been informed about benefits and any potential clinically significant side effects or other concerns regarding the administration of the medication they have just been given. All questions about medication have been answered. See MAR. * Suki Mcgowan RN - 06/11/2016 9:26 PM CDT Carlos Kelly is a 46 y.o. male who complains of anxiety. Pt stating that he took his last anti anxiety medication this morning and was concerned about stopping suddenly. Pt stating that he is trying to decrease his anti anxiety medication because he does not want to be addicted. Pt stating he has left sided chest pain with SOB and sweating at times. Pt stating that this morning when he started having chest pain, SOB, and sweating he checked his SPIO2 reading and stated it was 85%. Pt stating is slowly increased over a few minutes. Pt stating he has money stress due to recent hamstring pull that has been keeping him out of work. Pt denies SI/HI. Pt stating he had blood work done yesterday. Pt attached to cardiac, BP, and SPIO2 monitor. Pt A&O x 4. VSS, RR even and unlabored. Call light in reach, bed low and locked. Personal items in reach. Pt confirmed to be in blue scrubs, back door remains locked. Pt belongings labels and placed in locker W5. RN will continue to monitor. MD Dorman at bedside for pt assessment. * Suki Mcgowan RN - 06/11/2016 9:21 PM CDT Urine sample sent to lab. * Bayron Franco PCA - 06/11/2016 9:18 PM CDT Pt changed into blue scrubs by this PCT. Pt belongings taken and placed in locker W5. 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 * Suki Mcgowan RN - 06/11/2016 9:13 PM CDT technical writer Baryon at bedside to change patient into blue scrubs. Back door locked at this time. Pt calm and cooperative at this time. * Carlos Dorman MD - 06/11/2016 9:04 PM CDT HISTORY OF PRESENT ILLNESS Carlos Kelly, a 46 y.o. male presents to the ED with a Chief Complaint of Psychological Evaluation Subjective HPI Comments: 9:05 PM: Carlos Kelly is a 46 y.o. male with a history of anxiety, panic attacks,PTSD and depression, who presents to the Emergency Department for psychological evaluation with complaints of panic attacks. Patient reports diaphoresis and chest discomfort. He also reports frequent urination. He states ran out of anxiety medications last night. He denies SI/HI. Patient reports does not want blood work done today. Physician(s): No primary care provider on file. History provided by: The patient Arrived by: Private vehicle Arrived from: Home Psychological Evaluation Severity: Mild Onset quality: Gradual Timing: Constant Progression: Unchanged Associated symptoms: no abdominal pain, no cough, no diarrhea, no fever, no nausea, no rash and no wheezing REVIEW OF SYSTEMS Review of Systems Constitutional: Positive for diaphoresis. Negative for fever. HENT: Negative for facial swelling and nosebleeds. Eyes: Negative for pain and discharge. Respiratory: Negative for cough, choking and wheezing. Cardiovascular: Negative for leg swelling. Gastrointestinal: Negative for nausea, abdominal pain and diarrhea. Genitourinary: Positive for frequency. Negative for dysuria, decreased urine volume and difficulty urinating. Musculoskeletal: Negative for back pain, gait problem and neck stiffness. Skin: Negative for pallor and rash. Neurological: Negative for dizziness, syncope and weakness. Psychiatric/Behavioral: Negative for suicidal ideas, sleep disturbance and agitation. The patient is nervous/anxious. All [...] HFA INHALER ATENOLOL (TENORMIN) 100 MG TABLET MECLIZINE (ANTIVERT) 25 MG TABLET METOCLOPRAMIDE HCL (REGLAN) 10 MG TABLET ONDANSETRON (ZOFRAN ODT) 4 MG TABLET, RAPID DISSOLVE RANITIDINE (ZANTAC) 150 MG TABLET VERAPAMIL (CALAN) 40 MG TABLET Medications Modified during this Encounter Medications Discontinued during this Encounter Objective PHYSICAL EXAM INITIAL VS BP: (!) 146/75 mmHg (06/11/161843), Heart Rate: 84 bpm (06/11/161843), Resp: 18 (06/11/161843), Temp: 98.4 ??F (36.9 ??C) (06/11/161843), Temp src: Oral (06/11/161843), SpO2: 97 % (06/11/161843), Height: 6' 2 (188 cm) (06/11/161843), Weight: 118.389 kg (261 lb) (06/11/161843), BMI (Calculated): 33.58 (06/11/161843) No LMP for male patient. Physical Exam Constitutional: He appears well-developed and well-nourished. No distress. HENT: Head: Normocephalic and atraumatic. Mouth/Throat: No oropharyngeal exudate. Eyes: No scleral icterus. Neck: No tracheal deviation present. Cardiovascular: Normal rate, regular rhythm, normal heart sounds and intact distal pulses. Exam reveals no gallop and no friction rub. No murmur heard. Pulmonary/Chest: No respiratory distress. He has no wheezes. He has no rales. He exhibits no tenderness. Abdominal: Soft. Bowel sounds are normal. He exhibits no distension and no mass. There is no tenderness. There is no rebound and no guarding. Musculoskeletal: He exhibits no edema or tenderness. Lymphadenopathy: He has no cervical adenopathy. Neurological: He is alert. Skin: No rash noted. He is not diaphoretic. No erythema. Psychiatric: Judgment normal. Nursing note and vitals reviewed. DIAGNOSTICS LAB: Labs this ED Encounter URINALYSIS WITH REFLEX CULTURE - Abnormal LEUKOCYTE ESTERASE UA Trace (*) COLOR UA Yellow CLARITY UA Clear SPECIFIC GRAVITY UA 1.014 PH UA 7.0 NITRITE UA Negative PROTEIN UA Negative GLUCOSE UA Negative KETONES UA Negative UROBILINOGEN UA Normal BILIRUBIN UA Negative BLOOD UA Negative WBC UA 0-2 RBC UA 0-2 BACTERIA UA Negative EPITHELIAL CELLS, URINE 0-5 Narrative: Based on results, a urine culture has been reflexed. POC GLUCOSE - Abnormal POC GLUCOSE 115 (*) URINE CULTURE RADIOLOGY: No orders to display EKG: NSR, rate 75. Normal axis and unremarkable EKG. PROCEDURES Procedures MEDICAL DECISION MAKING AND PLAN OF CARE The patient recently ran and Xanax. I discussed with him that is not good to stop the Xanax suddenly as he is been on it for 16 years. But I feel would be worthwhile to try and wean down his Xanax. He refused blood work while in the emergency room. I also offered him a GI cocktail which he refused.He states he is having some chest discomfort which improves when he drinks water it is worse with lying down clinically seems to represent reflux. I have also written for Prilosec. He was discharged home in stable condition. This ECG was completely normal REEVALUATION CASE DISCUSSED Medications Administered During the ED Stay from 06/11/2016 1834 to 06/11/20162231 Date/Time Order Dose Route Action 06/11/2016 2132 ALPRAZolam (XANAX) tablet 1 mg 1 mg Oral Given . New Prescriptions for this Encounter ALPRAZOLAM (XANAX) 1 MG TABLET Take 1 Tablet (1 mg) by mouth nightly as needed for Anxiety. OMEPRAZOLE (PRILOSEC) 40 MG CAPSULE, DELAYED RELEASE(E.C.) Take 1 Capsule (40 mg) by mouth daily. LAST VS BP: (!) 146/84 mmHg (06/11/162129), Heart Rate: 88 bpm (06/11/162129), Resp: 14 (06/11/162129), Temp: 98.4 ??F (36.9 ??C) (06/11/161843), Temp src: Oral (06/11/161843), SpO2: 97 % (06/11/161843) CLINICAL IMPRESSION Final diagnoses: [F41.9] Anxiety (Primary) [K21.9] Gastroesophageal reflux disease without esophagitis CODING MDM Coding Reviewed: previous chart, nursing note and vitals Reviewed previous: labs Interpretation: SP02, ECG and labs I have reviewed nursing notes and agree unless otherwise mentioned. DISPOSITION, EDUCATION AND MEDICATION RECONCILIATION Medications reconciled. See after visit summary for patient education on discharged patients. Follow up: [facility], PHYSICIAN REFERRAL LINE [phone] Call in 2 days DISCHARGED HOME IN STABLE CONDITION. ATTESTATION STATEMENTS This note has been prepared by Zahra Alegre acting as a scribe for Dr. Carlos Dorman on 06/11/2016 at 1032pm . The scribe's documentation has been prepared under my direction and personally reviewed by me, Dandy, in its entirety on 06/11/2016 at 10:32 PM. I confirm that the note above accurately reflects all work, treatment, procedures, and medical decision making performed by me. * Alessandra Timmons RN - 06/11/2016 6:58 PM CDT Pt up to desk and reports having CP. States CP just started and unsure if anxiety or not. EKG ordered documented in this encounter Plan of Treatment Not on file documented as of this encounter Procedures Procedure Name Priority Date/Time Associated Diagnosis Comments URINALYSIS WITH REFLEX CULTURE Stat 06/11/2016 9:21 PM CDT URINE CULTURE Stat 06/11/2016 9:21 PM CDT EKG 12-LEAD Stat 06/11/2016 7:14 PM CDT POC GLUCOSE Stat 06/11/2016 7:11 PM CDT documented in this encounter Results * URINE CULTURE (06/11/2016 9:21 PM CDT) CULTURE No growth at 24 hours 06/12/2016 7:15 PM CDT [facility] Urine URINE SPECIMEN OBTAINED BY CLEAN CATCH PROCEDURE / Unknown Collection / Unknown 06/11/2016 9:21 PM CDT 06/11/2016 9:28 PM CDT Carlos Dorman MD MICROBIOLOGY - GENER AL ORDERABLES [facility] - [facility]# [id number] 5 [facility] [place] [address] * (ABNORMAL) URINALYSIS WITH REFLEX CULTURE (06/11/2016 9:21 PM CDT) COLOR UA Yellow Pale to Dark Yellow 06/11/2016 9:43 PM CDT [facility] - . [facility] CLARITY UA Clear Clear 06/11/2016 9:43 PM CDT [facility] - . [facility] SPECIFIC GRAVITY UA 1.014 06/11/2016 9:43 PM CDT [facility] PH UA 7.0 5.0 - 8.0 06/11/2016 9:43 PM CDT [facility] - . [facility] LEUKOCYTE ESTERASE UA Trace(A) Negative 06/11/2016 9:43 PM CDT [facility] - . [facility] NITRITE UA Negative Negative 06/11/2016 9:43 PM CDT [facility] - . [facility] PROTEIN UA Negative Negative 06/11/2016 9:43 PM CDT [facility] - [facility] GLUCOSE UA Negative Negative 06/11/2016 9:43 PM CDT [facility] - . [facility] KETONES UA Negative Negative 06/11/2016 9:43 PM CDT [facility] - . [facility] UROBILINOGEN UA Normal <2.0 mg/dL 06/11/2016 9:43 PM CDT [facility] - . [place] BILIRUBIN UA Negative Negative 06/11/2016 9:43 PM CDT [facility] - . [facility] BLOOD UA Negative Negative 06/11/2016 9:43 PM CDT [facility] - . [facility] WBC UA 0-2 0 - 2 /hpf 06/11/2016 9:43 PM CDT [facility] - . [place] RBC UA 0-2 0 - 2 /hpf 06/11/2016 9:43 PM CDT [facility] - . [facility] BACTERIA UA Negative Negative /hpf 06/11/2016 9:43 PM CDT [facility] - . [facility] EPITHELIAL CELLS, URINE 0-5 0 - 5 /hpf 06/11/2016 9:43 PM CDT [facility] - [facility] Urine URINE SPECIMEN OBTAINED BY CLEAN CATCH PROCEDURE / Unknown Collection / Unknown 06/11/2016 9:21 PM CDT 06/11/2016 9:28 PM CDT Narrative [facility] - [facility] - 06/11/2016 9:43 PM CDT Based on results, a urine culture has been reflexed. Carlos Dorman MD URINE ORDERABLES [facility] - [facility]# [id number] 5 [facility] [place] [place] [address] * EKG 12-LEAD (06/11/2016 7:14 PM CDT) 06/11/2016 7:14 PM CDT Narrative INTERFACE SYSTEM - 06/11/2016 7:46 PM CDT ? Stationary ECG Study ? [facility] ? Test Date: ?06/11/2016 7:14 PM Pat Name: ? VINCENT CORPUS ? Department: ?? 27 ?Room: ? Gender: ? M ?Dance Hall Host/Hostess: ?? steua1 : ?1970 ? Requested By: ?? Order Number: [id number] ?Reading MD: ?? Steve Ciaramita ? Measurements Intervals ?[place] ? Rate: ? 76 ? P: ?12 SD: ? 155 ?QRS: ?28 QRSD: ? 103 ?T: ?-5 QT: ? 370 ? QTc: ?416 ? Interpretive Statements ? SINUS RHYTHM WARNING: DATA QUALITY MAY AFFECT INTERPRETATION Electronically Signed On 06-11-2016 19:46:26 CDT by Steve Fried Procedure Note Provider, Historical - 06/11/2016 Stationary ECG Study [facility] Test Date: 06/11/2016 7:14 PM Pat Name: CARLOS KELLY Department: 27 Room: Gender: Dance Hall Host/Hostess: [facility] 1970 Requested By: Order Number: [id number] Elsa MD: Steve Fried Measurements Intervals [place] Rate: 76 P: 12 SD: 155 QRS: 28 QRSD: 103 T: -5 QT: 370 QTc: 416 Interpretive Statements SINUS RHYTHM WARNING: DATA QUALITY MAY AFFECT INTERPRETATION Electronically Signed On 06-11-2016 19:46:26 CDT by Steve Fried Carlos Dorman MD ECG ORDERABLES Performing Organization Address [facility] Co de Phone Number INTERFACE SYSTEM Refer to clinic/hospital department * (ABNORMAL) POC GLUCOSE (06/11/2016 7:11 PM CDT) GLUCOSE POC 115(H) 79 - 99 mg/dL 06/11/2016 7:15 PM CDT [facility] Whole blood specimen (specimen) 06/11/2016 7:11 PM CDT 06/11/2016 7:15 PM CDT Interface Provider Poct POINT OF CARE TE STING Performing Organization Address [facility] Co de Phone Number [facility] CLIA# [id number] [address] [place] [address] documented in this encounter Visit Diagnoses Diagnosis Anxiety- Primary Anxiety state, unspecified Gastroesophageal reflux disease without esophagitis Esophageal reflux documented in this encounter Administered Medications Inactive Administered Medications - up to 3 most recent administrations Medication Order MAR Action Action Date Dose Rate Site ALPRAZolam (XANAX) tablet 1 mg 1 mg, Oral, ONE TIME ONLY, 1 dose, On Radha 06/11/16 at 2130, Routine Given 06/11/2016 9:32 PM CDT 1 mg documented in this encounter Active and Recently Administered Medications Times are shown in CDT. Scheduled Medication Order 06/09/2016 06/10/2016 06/11/2016 ALPRAZolam (XANAX) tablet 1 mg (COMPLETED) 1 mg, Oral, ONE TIME ONLY, 1 dose, On Radha 06/11/16 at 2130, Routine 2131 (Given - Provid er: Suki Mcgowan RN) documented in this encounter
--- OUTSIDE RECORDS SUMMARY | 2024-09-10 04:21 | XMS_ITS | Encounter Summary ---
Author Organization [facility] Address [address] [place] [address] Care Team Providers Care Ic Designer Gate Arrays Name Role Phone Primitivo Zhang MD Primary Care Provider Reason for Visit * Reason Onset Date Comments Medication Problem 09/22/2015 Encounter Details Date Type Department Care Team (Late st Contact Info) Description 09/22/2015 Telephone [facility] Care Coordination [address] [place] [address] Zara Osorio RN Medication Problem Social History Tobacco Use Types [...] Miscellaneous Notes * Telephone Encounter - Zara Osorio RN - 09/22/2015 9:15 PM CST Pt called with concern about his medication. He states that he is not feeling well and he unable totake the medication he was given for his HTN. It was explained that the medication that was recalled in was for HTN. I did encourage him to return if he felt he needed to. I also assured the pt that we would call him with a PCP in the AM. [place] [id number] [employer]IP[employer]UTIONS ARCHITECT documented in this encounter Plan of Treatment Not on file documented as of this encounter Visit Diagnoses Not on filedocumented in this encounter Care Teams Ic Designer Gate Arrays Relationship Specialty Start Date End Date Primitivo Zhang MD PCP - General Emergency Medicine 07/02/15 11/25/15 documented as of this encounter
--- OUTSIDE RECORDS SUMMARY | 2024-09-10 04:21 | XMS_ITS | Encounter Summary ---
[facility] Organization [facility] Address [address] [place] [address] Care Team Providers Care Detention Officer Name Role Phone Unavailable Primary Care Provider Unavailabl e Reason for Visit * Reason Comments Medication Reaction pt reports adverse s iva effects to atenolol. started taking 08/2016. reports night lee, sweats, intermittent CP and SOB and panic attacks. today at grocery store felt like his throat closed up. reports atenolol only medication that works for his blood pressure Encounter Details Date Type Department Care Team (Late st Contact Info) Description 12/03/2015 8:21 PM CDT - 12/03/2015 11:20 PM CDT Emergency [facility] Emergency Department [address] [place] [address] Courtney Gomez MD NO ADDRESS ON FILE Medication side effect, initial encounter (Primary Dx) Discharge Disposition: Home or Self [...] Sign Reading Time Taken Comments Blood Pressure 127/78 12/03/2015 11:00 PM CDT Pulse 75 12/03/2015 11:00 PM CDT Temperature 36.8 ??C (98.2 ??F) 12/03/2015 7:54 PM CD T Respiratory Rate 16 12/03/2015 11:00 PM CDT Oxygen Saturation 95% 12/03/2015 11:00 PM CDT Inhaled Oxygen Concentration - - Weight 118.4 kg (261 lb) 12/03/2015 7:54 PM CDT Height 188 cm (6' 2 ) 12/03/2015 7:54 PM CDT Body Mass Index 33.51 12/03/2015 7:54 PM CDT documented in this encounter Discharge Instructions * Discharge Instructions* Courtney Gomez MD - 12/03/2015 10:52 PM CDT Cut back on atenolol to 25 mg 2 x daily . Clonidine if needed for elevated blood pressure . Need toSee your new sql developer dba . Referral to cardiology to discuss blood pressure problem if needed . documented in this encounter Medications at Time of Discharge Medication Sig Dispensed Refills Start Date End Date atenolol (TENORMIN) 100 mg tablet Take 0.5 Tablet (50 mg) by mouth 2 times daily. 10 Tablet 0 12/03/2015 albuterol 90 mcg/Actuation HFA inhaler Take 2 Puffs by inhalation every 6 hours as needed for Shortness of Breath. cloNIDine HCl (CATAPRES) 0.1 mg tablet Take 1 Tablet (0.1 mg) by mouth every 8 hours as needed for Blood Pressure. 30 Tablet 0 12/03/2015 12/05/2015 acetaminophen (TYLENOL) 325 mg tablet Take 650 mg by mouth nightly as needed . 10/30/2016 ranitidine (ZANTAC) 150 mg tabletIndications:nelson roesophageal reflux disease Take 150 mg by mouth daily . 12/05/2015 documented as of this encounter ED Notes * Debora Bueno RN - 12/03/2015 11:16 PM CDT Pt continues to c/o RUSSO but denies receiving any pain medication. Pt given DC and provided DC instructions. * Ayah Jordan RN - 12/03/2015 10:39 PM CDT Provider at bedside. Dr. Gomez. * Debora Bueno RN - 12/03/2015 9:42 PM CDT PIV estalbished and blood sent to lab. Pt c/o rib pain but states this is normal and he does not want any pain medication. Will continue to monitor * Courtney Gomez MD - 12/03/2015 8:52 PM CDT HISTORY OF PRESENT ILLNESS Carlos Kelly, a 45 y.o. male presents to the ED with a Chief Complaint of Medication Reaction Subjective HPI Comments: 8:52 PM: Carlos Kelly is a 45 y.o. male with a h/o anxiety, diabetes, HTN (on atenolol), who presents tot ED with complaint of feeling like my throat was closing , dizziness and SOB since starting hisatenolol 3 months ago. 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 The patient took his atenolol this morning and states but when I don't take it the blood pressure shoot laura high . Physician(s): Howard Trinidad MD History provided by: The patient REVIEW OF SYSTEMS Review of Systems Constitutional: Negative for fever, chills, diaphoresis, activity change and appetite change. HENT: Negative for congestion, facial swelling and nosebleeds. Respiratory: Positive for shortness of breath. Negative for chest tightness and wheezing. Cardiovascular: Positive for chest pain. Negative for palpitations and leg swelling. Gastrointestinal: Negative for abdominal pain and abdominal distention. Genitourinary: Negative for flank pain and difficulty urinating. Musculoskeletal: Negative for myalgias, back pain and neck pain. Skin: Negative for rash. Neurological: Negative for dizziness, seizures, syncope and headaches. Psychiatric/Behavioral: Negative for suicidal ideas, hallucinations and sleep disturbance. The patient is nervous/anxious. All other systems [...] HOME MEDICATIONS Discharge Medication List as of 12/03/2015 10:53 PM START taking these medications Details cloNIDine HCl (CATAPRES) 0.1 mg tablet Take 1 Tablet (0.1 mg) by mouth every 8 hours as needed for Blood Pressure., Disp-30 Tablet, R-0 CONTINUE these medications which have CHANGED Details atenolol (TENORMIN) 100 mg tablet Take 0.5 Tablet (50 mg) by mouth 2 times daily., Disp-10 Tablet, R-0 CONTINUE these medications which have NOT CHANGED Details acetaminophen (TYLENOL) 325 mg tablet Take 650 mg by mouth. ranitidine (ZANTAC) 150 mg tablet Take 150 mg by mouth daily . ALPRAZolam (XANAX) 2 mg tablet Take 1 Tablet (2 mg) by mouth 3 times daily as needed for Anxiety., Disp-60 Tablet, R-0 omeprazole (PRILOSEC) 40 mg Capsule, Delayed Release(E.C.) Take 1 Cap (40 mg) by mouth daily., Disp-30 Cap, R-None albuterol 90 mcg/Actuation HFA inhaler Take 2 Puffs by inhalation every 6 hours as needed for Shortness of Breath. STOP taking these medications hydrochlorothiazide 25 mg tablet Comments: Reason for Stopping: fldcwgmbzpkdr-ytizjwjf-uzxmgslvpw (FIORICET) 325-40-50 mg tablet Comments: Reason for Stopping: vbjzmiyjemgvj-zmueknja-hqihbagqlg (FIORICET) 325-40-50 mg tablet Comments: Reason for Stopping: metroNIDAZOLE (FLAGYL) 500 mg tablet Comments: Reason for Stopping: ciprofloxacin HCl (CIPRO) 500 mg tablet Comments: Reason for Stopping: MOMETASONE/FORMOTEROL (DULERA INHALATION) Comments: Reason for Stopping: hyoscyamine 0.125 mg Tablet, Sublingual Comments: Reason for Stopping: fluticasone (FLONASE) 50 mcg/spray Both Nostril SpSn Comments: Reason for Stopping: promethazine (PHENERGAN) 25 mg Oral tablet Comments: Reason for Stopping: Objective PHYSICAL EXAM INITIAL VS BP: 140/85 mmHg (12/03/151953), Heart Rate: 87 bpm (12/03/151953), Resp: 16 (12/03/151953), Temp: 98.2 ??F (36.8 ??C) (12/03/151953), Temp src: Oral (12/03/151953), SpO2: 95 % (12/03/151953), Height: 6' 2 (188 cm) (12/03/151953), Weight: 118.389 kg (261 lb) (12/03/151953), BMI (Calculated): 33.58 (12/03/151953) No LMP for male patient. Physical Exam [...] dry. No rash noted. No erythema. Psychiatric: He has a normal mood and affect. His behavior is normal. Nursing note and vitals reviewed. DIAGNOSTICS LAB: Labs this ED Encounter CBC WITH DIFFERENTIAL - Abnormal RBC 5.77 (*) HEMOGLOBIN 11.6 (*) HEMATOCRIT 39.2 (*) MCV 67.9 (*) MCH 20.1 (*) MCHC 29.6 (*) RDW 18.8 (*) WBC 5.8 RDW-STDEV 42.6 PLATELETS 183 MPV 9.3 NEUTROPHILS 60 LYMPHOCYTES 31 MONOCYTES 7 EOSINOPHILS 2 BASOPHILS 1 NEUTROPHIL ABSOLUTE 3.47 LYMPHOCYTE ABSOLUTE 1.81 MONOCYTE ABSOLUTE 0.39 EOSINOPHIL ABSOLUTE 0.10 BASOPHILS ABSOLUTE 0.04 IMMATURE GRANULOCYTES 0 IMMATURE GRANULOCYTES ABSOLUTE 0.01 COMPREHENSIVE METABOLIC PANEL - Abnormal POTASSIUM 3.2 (*) GLUCOSE 106 (*) SODIUM 142 CHLORIDE 101 CO2 27 CALCIUM 9.2 BUN 8 CREATININE 0.90 TOTAL PROTEIN 7.5 ALBUMIN 4.2 BILIRUBIN TOTAL 0.8 ALKALINE PHOSPHATASE 64 AST 35 ALT 38 GFR >60 GFR, >60 ANION GAP 14 RADIOLOGY: No orders to display EKG: NSR PROCEDURES Procedures MEDICAL DECISION MAKING AND PLAN OF CARE 45 yr old male Presents with concern for allergic reactionto atenolol. No signs on exam of typical allergic sx ( no hives/ airway concerns/ lip swelling) Patient is extremely anxious here - Adds new problem to list every time I enter room . Reports that there are no BP meds he can take - lists side effects to various medications that do not sound like allergic reactions. Difficult to stay on track with concerns. BP not elevated here and no concern foranaphylactic / allergic reaction. Advised that if he wants to stop atenolol - he shoud cut back slowly so not to get rebound effect . Will try clonidine to use on PRN basis until he see his new PCP on . Referral to cardiology To help manage BP concerns . REEVALUATION CASE DISCUSSED Medications Administered During the ED Stay from 12/03/2015 1950 to 12/04/20152001 Date/Time Order Dose Route Action 12/03/2015 2238 potassium chloride (KLOR-CON) SR tablet 40 mEq 40 mEq Oral Given Discharge Medication List as of 12/03/2015 10:53 PM START taking these medications Details cloNIDine HCl (CATAPRES) 0.1 mg tablet Take 1 Tablet (0.1 mg) by mouth every 8 hours as needed for Blood Pressure., Disp-30 Tablet, R-0 CONTINUE these medications which have CHANGED Details atenolol (TENORMIN) 100 mg tablet Take 0.5 Tablet (50 mg) by mouth 2 times daily., Disp-10 Tablet, R-0 CONTINUE these medications which have NOT CHANGED Details acetaminophen (TYLENOL) 325 mg tablet Take 650 mg by mouth. ranitidine (ZANTAC) 150 mg tablet Take 150 mg by mouth daily . ALPRAZolam (XANAX) 2 mg tablet Take 1 Tablet (2 mg) by mouth 3 times daily as needed for Anxiety., Disp-60 Tablet, R-0 omeprazole (PRILOSEC) 40 mg Capsule, Delayed Release(E.C.) Take 1 Cap (40 mg) by mouth daily., Disp-30 Cap, R-None albuterol 90 mcg/Actuation HFA inhaler Take 2 Puffs by inhalation every 6 hours as needed for Shortness of Breath. STOP taking these medications hydrochlorothiazide 25 mg tablet Comments: Reason for Stopping: musykahpzjonq-quidxfye-gjjgnuygnc (FIORICET) 325-40-50 mg tablet Comments: Reason for Stopping: xxqvzggcjkilq-dkqyytta-viorvaiwhf (FIORICET) 325-40-50 mg tablet Comments: Reason for Stopping: metroNIDAZOLE (FLAGYL) 500 mg tablet Comments: Reason for Stopping: ciprofloxacin HCl (CIPRO) 500 mg tablet Comments: Reason for Stopping: MOMETASONE/FORMOTEROL (DULERA INHALATION) Comments: Reason for Stopping: hyoscyamine 0.125 mg Tablet, Sublingual Comments: Reason for Stopping: fluticasone (FLONASE) 50 mcg/spray Both Nostril SpSn Comments: Reason for Stopping: promethazine (PHENERGAN) 25 mg Oral tablet Comments: Reason for Stopping: LAST VS BP: 127/78 mmHg (12/03/152299), Heart Rate: 75 bpm (12/03/152299), Resp: 16 (12/03/152299), Temp: 98.2 ??F (36.8 ??C) (12/03/151953), Temp src: Oral (12/03/151953), SpO2: 95 % (12/03/152299) CLINICAL IMPRESSION Final diagnoses: [T88.7XXA] Medication side effect, initial encounter (Primary) CODING MDM Coding Reviewed: previous chart, nursing note and vitals Interpretation: SP02 and labs I have reviewed nursing notes and agree unless otherwise mentioned. DISPOSITION, EDUCATION AND MEDICATION RECONCILIATION Medications reconciled. See after visit summary for patient education on discharged patients. ATTESTATION STATEMENTS This note has been prepared by J Luis Angel acting as a scribe for Dr. Courtney Gomez on 12/03/2015 at 10:00 PM. The scribe's documentation has been prepared under my direction and personally reviewed by me, Nicolás Gomez , in its entirety on 12/04/2015 at 8:02 PM. I confirm that the note above accurately reflects all work, treatment, procedures, and medical decision making performed by me. * Debora Bueno RN - 12/03/2015 8:48 PM CDT Pt to ED c/o medication reaction. Pt states taking atenolol for BP management but c/o sx like SOB, sore throat, feeling of throat tightness, intermittent CP and diaphoresis. Pt states trying to take Norvasc but It didn't work at all . Pt also states My doctor thinks I'm obsessed with atenolol because I choose to keep taking it, but its all that works . Pt states I fired my past 3 PCPs because they are all scared of being sued . Currently pt denies pain. Pt reports throat closing up for a fewseconds at the grocery store earlier today. Pt A&Ox4, NAD. Pt placed on full monitoring specialist, bp and O2. documented in this encounter Plan of Treatment Not on file documented as of this encounter Procedures Procedure Name Priority Date/Time Associated Diagnosis Comments TELEMETRY REPORT 12/04/2015 8:55 AM CDT CBC WITH DIFFERENTIAL Stat 12/03/2015 9:33 PM CDT COMPREHENSIVE METABOLIC PANEL Stat 12/03/2015 9:33 PM CDT EKG 12-LEAD Stat 12/03/2015 8:11 PM CDT documented in this encounter Results * TELEMETRY REPORT (12/04/2015 8:55 AM CDT) Provider Scanning ECG ORDERABLES * (ABNORMAL) COMPREHENSIVE METABOLIC PANEL (12/03/2015 9:33 PM CDT) SODIUM 142 136 - 145 mmol/L 12/03/2015 10:15 PM CDT [facility] POTASSIUM 3.2(L) 3.5 - 5.0 mmol/L 12/03/2015 10:15 PM CDT [facility] CHLORIDE 101 98 - 107 mmol/L 12/03/2015 10:15 PM CDT [facility] CO2 27 22 - 29 mmol/L 12/03/2015 10:15 PM CDT [facility] CALCIUM 9.2 8.6 - 10.2 mg/dL 12/03/2015 10:15 PM CDT [facility] BUN 8 6 - 20 mg/dL 12/03/2015 10:15 PM CDT [facility] CREATININE 0.90 0.67 - 1.17 mg/dL 12/03/2015 10:15 PM CDT [facility] GLUCOSE 106(H) 79 - 99 mg/dL 12/03/2015 10:15 PM CDT [facility] TOTAL PROTEIN 7.5 6.7 - 8.6 g/dL 12/03/2015 10:15 PM CDT [facility] ALBUMIN 4.2 3.5 - 5.2 g/dL 12/03/2015 10:15 PM CDT [facility] BILIRUBIN TOTAL 0.8 0.3 - 1.2 mg/dL 12/03/2015 10:15 PM CDT [facility] ALKALINE PHOSPHATASE 64 40 - 129 U/L 12/03/2015 10:15 PM CDT [facility] AST 35 <41 U/L 12/03/2015 10:15 PM CDT [facility] ALT 38 <42 U/L 12/03/2015 10:15 PM CDT [facility] GFR >60 >=60 mL/min/1.7 3 sq meter 12/03/2015 10:15 PM CDT [facility] Comment: eGFR [...] GFR, >60 >=60 mL/min/1.7 3 sq meter 12/03/2015 10:15 PM CDT [facility] ANION GAP 14 8 - 16 mmol/L 12/03/2015 10:15 PM T [facility] Blood Collection / Unknown 12/03/2015 9:33 PM CDT 12/03/2015 9:39 PM CDT Courtney Gomez MD CHEMISTRY ORDERABLES [facility] [employer] [facility] CLIA# [id number] SGwen [facility] FLACOSURINDER MADRID FAZAL [address] * (ABNORMAL) CBC WITH DIFFERENTIAL (12/03/2015 9:33 PM CDT) WBC 5.8 4.0 - 9.8 K/uL 12/03/2015 10:43 PM CDT [facility] RBC 5.77(H) 4.50 - 5.40 M/uL 12/03/2015 10:43 PM [facility] HEMOGLOBIN 11.6(L) 13.6 - 16.5 g/dL 12/03/2015 10:43 PM [facility] HEMATOCRIT 39.2(L) 40.0 - 48.0 % 12/03/2015 10:43 PM [facility] Comment:Results confirmed by 2nd methodology. MCV 67.9(L) 82.0 - 99.0 fL 12/03/2015 10:43 PM [facility] MCH 20.1(L) 27.2 - 32.6 pg 12/03/2015 10:43 PM [facility] MCHC 29.6(L) 31.5 - 35.5 g/dL 12/03/2015 10:43 PM [facility] RDW 18.8(H) 11.5 - 14.5 % 12/03/2015 10:43 PM [facility] RDW-STDEV 42.6 37.1 - 48.7 fL 12/03/2015 10:43 PM [facility] PLATELETS 183 140 - 350 K/uL 12/03/2015 10:43 PM [facility] MPV 9.3 9.3 - 12.4 fL 12/03/2015 10:43 PM [facility] NEUTROPHILS 60 45 - 70 % 12/03/2015 10:43 PM [facility] LYMPHOCYTES 31 20 - 70 % 12/03/2015 10:43 PM [facility] MONOCYTES 7 3 - 13 % 12/03/2015 10:43 PM [facility] EOSINOPHILS 2 <=7 % 12/03/2015 10:43 PM [facility] BASOPHILS 1 <=3 % 12/03/2015 10:43 PM [facility] NEUTROPHIL ABSOLUTE 3.47 1.90 - 7.00 K/uL 12/03/2015 10:43 PM [facility] LYMPHOCYTE ABSOLUTE 1.81 0.70 - 4.50 K/uL 12/03/2015 10:43 PM CDT [facility] MONOCYTE ABSOLUTE 0.39 0.10 - 1.30 K/uL 12/03/2015 10:43 PM CDT [facility] EOSINOPHIL ABSOLUTE 0.10 <0.70 K/uL 12/03/2015 10:43 PM CDT [facility] BASOPHILS ABSOLUTE 0.04 <=0.20 K/uL 12/03/2015 10:43 PM CDT [facility] IMMATURE GRANULOCYTES 0 <=0 % 12/03/2015 10:43 PM CDT [facility] IMMATURE GRANULOCYTES ABSOLUTE 0.01 0.00 - 0.03 K/uL 12/03/2015 10:43 PM CDT [facility] Blood Collection / Unknown 12/03/2015 9:33 PM CDT 12/03/2015 9:39 PM CDT Courtney Gomez MD HEMATOLOGY ORDERABLE S [facility]# [id number] 5 [facility] [address] * EKG 12-LEAD (12/03/2015 8:11 PM CDT) 12/03/2015 8:11 PM CDT Narrative INTERFACE SYSTEM - 12/04/2015 6:05 PM CDT ? Stationary ECG Study ? [facility] ? Test Date: ?12/03/2015 8:11 PM Pat Name: ? VINCENT CORPUS ? Department: ?? 13 ?Room: ? Gender: ? M ?Operational Risk Analyst: ?? [id number] : ?1970 ? Requested By: ?? Order Number: [id number] ?Reading MD: ?? Jenaro Garcia ? Measurements Intervals ?[place] ? Rate: ? 84 ? P: ?38 ID: ? [id number] ?QRS: ?35 QRSD: ? 105 ?T: ?4 QT: ? 370 ? QTc: ?439 ? Interpretive Statements ? SINUS RHYTHM Electronically Signed On 12-04-2015 18:05:11 CDT by Jenaro Garcia Procedure Note Provider, Historical / Jenaro Garcia MD - 11/25/2021 Stationary ECG Study [facility] Test Date: 12/03/2015 8:11 PM Pat Name: CARLOS KELLY Department: 13 Room: Gender: M Operational Risk Analyst: [place] [id number] : 1970 Requested By: Order Number: [id number] Reading MD: Jeanro Garcia Measurements Intervals [place] Rate: 84 P: 38 ID: [id number] QRS: 35 QRSD: 105 T: 4 QT: 370 QTc: 439 Interpretive Statements SINUS RHYTHM Electronically Signed On 12-04-2015 18:05:11 CDT by Jenaro Garcia Courtney Gomez MD ECG ORDERABLES INTERFACE SYSTEM Refer to clinic/hospital department documented in this encounter Visit Diagnoses Diagnosis Medication side effect, initial encounter- Primary documented in this encounter Administered Medications Inactive Administered Medications - up to 3 most recent administrations Medication Order MAR Action Action Date Dose Rate Site potassium chloride (KLOR-CON) SR tablet 40 mEq 40 mEq, Oral, ONE TIME ONLY, 1 dose, On Wed12/03/15 at 2230, Routine Given 12/03/2015 10:38 PM CDT 40 mEq documented in this encounter Active and Recently Administered Medications Times are shown in CDT. Scheduled Medication Order 12/01/2015 12/02/2015 12/03/2015 potassium chloride (KLOR-CON) SR tablet 40 mEq (COMPLETED) 40 mEq, Oral, ONE TIME ONLY, 1 dose, On Wed12/03/15 at 2230, Routine 2238 (Given - Provid er: Ayah Jordan RN) documented in this encounter
--- OUTSIDE RECORDS SUMMARY | 2024-09-10 04:21 | XMS_ITS | Encounter Summary ---
Author Organization [employer] Address [address] [place] [address] Care Team Providers Care Alligator Shear Operator Name Role Phone Unavailable Primary Care Provider Unavailabl e Reason for Visit * Reason Comments Abdominal Pain LLQ abdominal pain s tarting today. Reports having nausea, loose stools, and temperature up to 101.5. Denies vomiting. Hx of diverticulitis. States that the pain radiates up into his chest. Denies sob. * Auth/Cert - Closed Specialty Diagnoses / Procedures Referred By Contac t Referred To Contact Emergency Medicine [facility] Emergency Dept [address] [place] [address] Referral ID Status Reason Start Date Expiration Date Visits Re quested Visits Authorized [id number] Closed 1 1 Encounter Details Date Type Department Care Team (Late st Contact Info) Description 11/08/2014 2:08 AM REWRITE EDITOR - 11/08/2014 5:24 AM [facility] Emergency [facility] Emergency Department [address] [place] [address] Arie Justice MD [address] [place] [address] [place] [address] Nausea (Primary Dx); Abdominal pain; Diverticulitis Discharge Disposition: Home or Self Care Social [...] Sign Reading Time Taken Comments Blood Pressure 128/74 11/08/2014 4:58 AM REWRITE EDITOR Pulse 98 11/08/2014 4:58 AM REWRITE EDITOR Temperature 37.3 ??C (99.1 ??F) 11/08/2014 12:[address] Respiratory Rate 16 11/08/2014 4:58 AM REWRITE EDITOR Oxygen Saturation 98% 11/08/2014 4:58 AM REWRITE EDITOR Inhaled Oxygen Concentration - - Weight 120.2 kg (265 lb) 11/08/2014 12:47 AM REWRITE EDITOR Height 188 cm (6' 2 ) 11/08/2014 12:47 AM REWRITE EDITOR Body Mass Index 34.02 11/08/2014 12:47 AM REWRITE EDITOR documented in this encounter Discharge Instructions * Discharge Instructions* Arie Justice MD - 11/08/2014 4:54 AM REWRITE EDITOR Return to this facility if your symptoms worsen Call the referral physician on next available weekday for an appointment this week Take all medicines as directed. Drink plenty of fluids ITE EDITOR * Attachments The following attachments cannot be sent through Care Everywhere. * ABDOMINAL PAIN (MALIAN) * NAUSEA AND VOMITING (MALIAN) * DIVERTICULITIS (MALIAN) documented in this encounter Medications at Time of Discharge Medication Sig Dispensed Refills Start Date End Date albuterol 90 mcg/Actuation HFA inhaler Take 2 Puffs by inhalation every 6 hours as needed for Shortness of Breath. ciprofloxacin HCl (CIPRO) 500 mg tablet Take 1 Tab (500 mg) by mouth 2 times daily for 7 days. 14 Tab 0 11/08/2014 11/10/2014 metroNIDAZOLE (FLAGYL) 500 mg tablet Take 1 Tab (500 mg) by mouth 3 times daily for 7 days. 21 Tab 0 11/08/2014 11/10/2014 ondansetron (ZOFRAN ODT) 4 mg Tablet, Rapid [...] as of this encounter ED Notes * Sheila Ruiz RN - 11/08/2014 5:14 AM CST All medications and fluids given via #20 angio right ac ITE EDITOR * Sheila Ruiz RN - 11/08/2014 5:09 AM CST disch ambulatory with written inst per Dr Justice ITE EDITOR * Sheila Ruiz RN - 11/08/2014 4:12 AM CST Again checking own temp when RN entered, questioning results of labs, vs. Explained to pt one touchBS is same as blood glucose in lab seems like I'm a healtthy man but I feel terrible , speech clear, resting feet up on side rail of bed, appears relaxed, talking on cell phone, awiting CT results ITE EDITOR * Arie Justice MD - 11/08/2014 3:49 AM CST Images from the original note were not included. HISTORY OF PRESENT ILLNESS Carlos Mcgee, a 44 y.o. male presents to the ED with a Chief Complaint of Abdominal Pain Subjective HPI Comments: Pt is a 44 year old male with a PMH significant for DM who presents to the ED tonightfor evaluation of left lower quadrant abdominal pain. Says that all day on Wednesday he was urinatinga lot and then on Wednesday, he began to have cramping with occasional sharp pains in his left lower quadrant. No radiation of pain but has been nauseated all day with fever up to 101.5. No chills. No vomiting. Had a loose bowel movement earlier tonight as well. Has had diverticulitis in past with similar complaints. Tonight, began to have a lot of belching, gas along with the nausea and had somechest burning associated with it. No shortness of breath. PCP: none History provided by: The patient Abdominal Pain Associated symptoms: chills, fever and nausea Associated symptoms: no chest pain, no cough, no diarrhea, no dysuria, no fatigue, no shortness of breath, no sore throat and no vomiting REVIEW OF SYSTEMS Review of Systems Constitutional: Positive for fever and chills. Negative for fatigue. HENT: Negative for congestion, ear pain, sinus pressure, sore throat, trouble swallowing and voice change. Respiratory: Negative for cough, chest tightness and shortness of breath. Cardiovascular: Negative for chest pain, palpitations and leg swelling. Gastrointestinal: Positive for nausea and abdominal pain. Negative for vomiting and diarrhea. Genitourinary: Positive for frequency. Negative for dysuria, urgency, flank pain and difficulty urinating. Musculoskeletal: Negative for back pain. Skin: Negative for pallor and rash. Neurological: Negative for dizziness, speech difficulty, light-headedness and headaches. Psychiatric/Behavioral: Negative for confusion. The patient is [...] INHALER ALPRAZOLAM (XANAX) 2 MG ORAL TABLET CYCLOBENZAPRINE (FLEXERIL) 5 MG TABLET FLUTICASONE (FLONASE) 50 MCG/SPRAY BOTH NOSTRIL SPSN OMEPRAZOLE (PRILOSEC) 40 MG CAPSULE, DELAYED RELEASE(E.C.) PROMETHAZINE (PHENERGAN) 25 MG ORAL TABLET Medications Modified during this Encounter Medications Discontinued during this Encounter Objective PHYSICAL EXAM INITIAL VS BP: 138/92 mmHg (11/08/1446), Heart Rate (Monitored): 109 bpm (11/08/1446), Resp: 18 (11/08/1446), Temp: 99.1 ??F (37.3 ??C) (11/08/1446), Temp src: Oral (11/08/1446), SpO2: 98 % (11/08/1446), Height: 6' 2 (188 cm) (11/08/1446), Weight: 120.203 kg (11/08/1446), BMI (Calculated): 34.1 (11/08/1446) No LMP for male patient. Physical Exam [...] normal. He exhibits no distension. There is tenderness in the left lower quadrant. There is no rebound. Musculoskeletal: Normal range [...] orders placed during the hospital encounter of 11/08/14 (from the past 24 hour(s)) COMPREHENSIVE METABOLIC PANEL Result Value Ref Range GFR, >60 >=60 mL/min/1.7 sq meter SODIUM 135 (*) 136 - 145 mmol/L POTASSIUM See note. 3.5 - 5.0 mmol/L CHLORIDE 99 98 - 107 mmol/L CO2 24 22 - 29 mmol/L CALCIUM 8.9 8.6 - 10.2 mg/dL BUN 10 6 - 20 mg/dL CREATININE 0.95 0.67 - 1.17 mg/dL GLUCOSE 100 (*) 79 - 99 mg/dL TOTAL PROTEIN 8.1 6.7 - 8.6 g/dL ALBUMIN 4.3 3.5 - 5.2 g/dL BILIRUBIN TOTAL 1.2 0.3 - 1.2 mg/dL ALKALINE PHOSPHATASE See note 40 - 129 U/L AST 55 (*) <=40 U/L ALT 57 (*) <=41 U/L GFR >60 >=60 mL/min/1.7 sq meter C-REACTIVE PROTEIN Result Value Ref Range CRP 1.4 (*) 0.0 - 0.5 mg/dL LIPASE Result Value Ref Range LIPASE 38 13 - 60 U/L CBC WITH DIFFERENTIAL Result Value Ref Range WBC 4.0 4.0 - 9.8 K/uL RBC 6.11 (*) 4.50 - 5.40 M/uL HEMOGLOBIN 14.0 13.6 - 16.5 g/dL HEMATOCRIT 44.2 40.0 - 48.0 % MCV 72.3 (*) 82.0 - 99.0 fL MCH 22.9 (*) 27.2 - 32.6 pg MCHC 31.7 31.5 - 35.5 % PLATELETS 191 140 - 350 K/uL MPV 9.4 9.3 - 12.4 fL RDW 17.1 (*) 11.5 - 14.5 % RDW-STDEV 43.9 37.1 - 48.7 fL NEUTROPHILS 66 45 - 70 % LYMPHOCYTES 26 16 - 45 % MONOCYTES 6 3 - 13 % EOSINOPHILS 2 0 - 7 % BASOPHILS 0 0 - 2 % NEUTROPHIL ABSOLUTE 2.67 1.90 - 7.00 K/uL LYMPHOCYTE ABSOLUTE 1.07 0.70 - 4.50 K/uL MONOCYTE ABSOLUTE 0.23 0.10 - 1.30 K/uL EOSINOPHIL ABSOLUTE 0.06 0.00 - 0.70 K/uL BASOPHILS ABSOLUTE 0.02 0.00 - 0.20 K/uL URINALYSIS WITH REFLEX CULTURE Result Value Ref Range URINE CULTURE ORDER Not indicated URINALYSIS Result Value Ref Range COLOR UA Yellow CLARITY UA Clear Clear SPECIFIC GRAVITY UA 1.021 1.001 - 1.035 PH UA 5.5 5.0 - 8.0 LEUKOCYTE ESTERASE UA Negative Negative NITRITE UA Negative Negative PROTEIN UA Trace (*) Negative GLUCOSE UA Negative Negative KETONES UA Negative Negative UROBILINOGEN UA <1 <=1 mg/dL BILIRUBIN UA Negative Negative BLOOD UA Negative Negative WBC URINE <1 0 - 3 /HPF EPITHELIAL CELLS, URINE 0-2 RADIOLOGY: CT ABDOMEN PELVIS WO CONTRAST Radiologist Impression: IMPRESSION: 2 mm nonobstructing renal stones present bilaterally. No convincing radiographic evidence of other acute or active abdominal or pelvic disease. Dictated from location 4. DLP = 1300.57 EKG: sinus tach rate 110 Normal intervals, normal axis, no ST-T wavew changes to suggest ischemia PROCEDURES Procedures MEDICAL DECISION MAKING AND PLAN OF CARE No identifiable pathology on labs, CT - he had a normal stress just 2-3 months ago. He repeatedly asks to be admitted - I have discussed with him that everything appears WNL - he then complains that he stepped on a piece of glass a week ago and thinks his toe may be infected (after careful inspection, there is not even a puncture wound) - he may have a smoldering diverticulitis - he asks for cipro and flagyl to take which I have provided. REEVALUATION CASE DISCUSSED Medications Administered During the ED Stay from 11/08/2014 0042 to 11/08/2014 0513 Date/Time Order Dose Route Action 11/08/2014 0406 sodium chloride 0.9% infusion 150 mL/hr IV New Bag 11/08/2014 0344 sodium chloride 0.9% bolus solution 500 mL 0 mL IV Stopped 11/08/2014 0314 sodium chloride 0.9% bolus solution 500 mL 500 mL IV New Bag 11/08/2014 0458 ondansetron (ZOFRAN) 4 mg/2 mL injection 4 mg 4 mg IV Given . New Prescriptions for this Encounter CIPROFLOXACIN HCL (CIPRO) 500 MG TABLET Take 1 Tab (500 mg) by mouth 2 times daily for 7 days. METRONIDAZOLE (FLAGYL) 500 MG TABLET Take 1 Tab (500 mg) by mouth 3 times daily for 7 days. ONDANSETRON (ZOFRAN ODT) 4 MG TABLET, RAPID DISSOLVE Place 1 Tab (4 mg) under tongue every 6 hours as needed for Nausea. LAST VS BP: 128/74 mmHg (11/08/14457), Heart Rate (Monitored): 96 bpm (11/08/14 040), Resp: 16 (803991), Temp: 99.1 ??F (37.3 ??C) (11/08/1446), Temp src: Oral (11/08/1446), SpO2: 98 % (11/08/14457) CLINICAL IMPRESSION Final diagnoses: [787.02] Nausea (Primary) [789.00] Abdominal pain [562.11] Diverticulitis CODING MDM Coding Reviewed: vitals and previous chart Reviewed previous: labs (stress echo recently negative) Interpretation: labs, SP02, CT scan and ECG I have reviewed nursing notes and agree unless otherwise mentioned. DISPOSITION, EDUCATION AND MEDICATION RECONCILIATION Medications reconciled. See after visit summary for patient education on discharged patients. ITE EDITOR * Sheila Ruiz RN - 11/08/2014 3:30 AM CST Declined offer of pain meds by Dr Justice ITE EDITOR * Sheila Ruiz RN - 11/08/2014 3:[address] per cart, pt expressing concern re: fluctuating temps, rechecked x 4 since arrival, T=99.3, also concerned re: HR= 113, pt states sx began yest, c/o pain across lower abd, RLQ and LUQ ITE EDITOR documented in this encounter Plan of Treatment Not on file documented as of this encounter Procedures Procedure Name Priority Date/Time Associated Diagnosis Comments CT ABDOMEN PELVIS WO CONTRAST Stat 11/08/2014 3:36 AM REWRITE EDITOR URINALYSIS WITH REFLEX CULTURE Stat 11/08/2014 3:21 AM REWRITE EDITOR URINALYSIS W/REFLEX MICROSCOPIC Stat 11/08/2014 3:21 AM REWRITE EDITOR CBC WITH DIFFERENTIAL Stat 11/08/2014 2:50 AM REWRITE EDITOR C-REACTIVE PROTEIN Stat 11/08/2014 2: 38 AM REWRITE EDITOR LIPASE Stat 11/08/2014 2:38 AM REWRITE EDITOR COMPREHENSIVE METABOLIC PANEL Stat 11/08/2014 2:38 AM REWRITE EDITOR EKG 12-LEAD Stat 11/08/2014 1:14 AM REWRITE EDITOR documented in this encounter Results * CT ABDOMEN PELVIS WO CONTRAST (11/08/2014 3:36 AM REWRITE EDITOR) Anatomical Region Laterality Modality Abdomen Computed Tomogra phy 11/08/2014 3:35 AM REWRITE EDITOR Impressions 11/08/2014 4:34 AM REWRITE EDITOR IMPRESSION: 2 mm nonobstructing renal stones present bilaterally. No convincing radiographic evidence of other acute or active abdominal or pelvic disease. Dictated from location 4. DLP = ??1300.57 Narrative 11/08/2014 4:34 AM REWRITE EDITOR Exam: ??CT ABDOMEN PELVIS WO CONTRAST . ??Nov 08, 2014 03:36:18 AM . History: . ??Abdominal Pain LLQ . Scans were performed without the intravenous injection of contrast. There is mild fatty infiltration of the liver. The liver is free of distinct solid masses or evidence of hepatocellular disease. No abnormalities of bile ducts are seen. The gallbladder is surgically absent. The spleen is unremarkable. No pancreatic masses, cysts or inflammation are identified. No renal masses are seen. No renal cyst are seen. There is a 2 mm nonobstructing renal stones present bilaterally.. No obstruction is seen. The ureters descend without evidence of obstruction or displacement. The urinary bladder is grossly normal. . No pelvic masses, cysts or abnormal fluid collections are seen. No periaortic or pelvic adenopathy is seen. There is a normal appendix present.. . No abnormalities of bowel loop and mesentery are identified. Procedure Note Azar Johnson MD - 11/08/2014 Exam: CT ABDOMEN PELVIS WO CONTRAST . Nov 08, 2014 03:36:18 AM . History: . Abdominal Pain LLQ . Scans were performed without the intravenous injection of contrast. There is mild fatty infiltration of the liver. The liver is free of distinct solid masses or evidence of hepatocellular disease. No abnormalities of bile ducts are seen. The gallbladder is surgically absent. The spleen is unremarkable. No pancreatic masses, cysts or inflammation are identified. No renal masses are seen. No renal cyst are seen. There is a 2 mm nonobstructing renal stones present bilaterally.. No obstruction is seen. The ureters descend without evidence of obstruction or displacement. The urinary bladder is grossly normal. . No pelvic masses, cysts or abnormal fluid collections are seen. No periaortic or pelvic adenopathy is seen. There is a normal appendix present.. . No abnormalities of bowel loop and mesentery are identified. IMPRESSION IMPRESSION: 2 mm nonobstructing renal stones present bilaterally. No convincing radiographic evidence of other acute or active abdominal or pelvic disease. Dictated from location 4. DLP = 1300.[address] ORDERABLES * (ABNORMAL) URINALYSIS (11/08/2014 3:21 AM REWRITE EDITOR) COLOR UA Yellow [facility] CLARITY UA Clear Clear [facility] SPECIFIC GRAVITY UA 1.021 1.001 - 1.035 [facility] PH UA 5.5 5.0 - 8.0 [facility] - . [facility] LEUKOCYTE ESTERASE UA Negative Negative [facility] - . [facility] NITRITE UA Negative Negative [facility] - . [facility] PROTEIN UA Trace(A) Negative [facility] GLUCOSE UA Negative Negative [facility] - . [facility] KETONES UA Negative Negative [facility] UROBILINOGEN UA <1 <=1 mg/dL [facility] - [facility] BILIRUBIN UA Negative Negative [facility] - [facility] BLOOD UA Negative Negative [facility] WBC URINE <1 0 - 3 /HPF [facility] EPITHELIAL CELLS, URINE 0-2 /HPF [facility] 11/08/2014 3:21 AM REWRITE EDITOR 11/08/2014 3:46 AM REWRITE EDITOR Comment:URINE VOIDED Arie Justice MD URINE ORDERABLES Performing Organization Address [facility] Co de Phone Number [facility] - [facility] CLIA# [id number] [address] [place] [address] * URINALYSIS WITH REFLEX CULTURE (11/08/2014 3:21 AM REWRITE EDITOR) URINE CULTURE ORDER Not indicated [facility] Comment: Criteria for a reflex culture include one or more of the following: ??Abnormal nitrite, leukocyte esterase, WBCs or RBCs. ??Lack of qualifying criteria does not exclude the possiblity of a urinary tract infection. ??Dilute urine, drug interference, etc. may decrease the sensitivity of the criteria analytes. Urine, clean catch 11/08/2014 3:21 AM REWRITE EDITOR 11/08/2014 3:46 AM REWRITE EDITOR Comment:URINE VOIDED Arie Justice MD URINE ORDERABLES Performing Organization Address [facility] Co de Phone Number [facility] - [facility] CLIA# [id number] [address] [place] [address] * (ABNORMAL) CBC WITH DIFFERENTIAL (11/08/2014 2:50 AM REWRITE EDITOR) WBC 4.0 4.0 - 9.8 K/uL [facility]ORATORY SERVICES [facility] RBC 6.11(H) 4.50 - 5.40 M/uL [facility]ORY SERVICES [facility] HEMOGLOBIN 14.0 13.6 - 16.5 g/dL [facility] HEMATOCRIT 44.2 40.0 - 48.0 % [facility] MCV 72.3(L) 82.0 - 99.0 fL [facility] MCH 22.9(L) 27.2 - 32.6 pg [facility] MCHC 31.7 31.5 - 35.5 % [facility] PLATELETS 191 140 - 350 K/uL [facility] SERVICES [facility] MPV 9.4 9.3 - 12.4 fL [facility] RDW 17.1(H) 11.5 - 14.5 % [facility] RDW-STDEV 43.9 37.1 - 48.7 fL [facility] NEUTROPHILS 66 45 - 70 % [facility] LYMPHOCYTES 26 16 - 45 % [facility] MONOCYTES 6 3 - 13 % [facility] EOSINOPHILS 2 0 - 7 % [facility] BASOPHILS 0 0 - 2 % [facility] NEUTROPHIL ABSOLUTE 2.67 1.90 - 7.00 K/uL [facility] LYMPHOCYTE ABSOLUTE 1.07 0.70 - 4.50 K/uL [facility] SERVICES [facility] MONOCYTE ABSOLUTE 0.23 0.10 - 1.30 K/uL [facility] EOSINOPHIL ABSOLUTE 0.06 0.00 - 0.70 K/uL [facility] BASOPHILS ABSOLUTE 0.02 0.00 - 0.20 K/uL [facility] Blood 11/08/2014 2:50 AM REWRITE EDITOR 11/08/2014 2:56 AM REWRITE EDITOR Arie Justice MD HEMATOLOGY ORDERABLE S [facility]ORATORY SERVICES [facility] CLIA# [id number] [address] [facility] [place] [address] * LIPASE (11/08/2014 2:38 AM REWRITE EDITOR) LIPASE 38 13 - 60 U/L [facility] [place] [facility]ORATORY [facility] Blood 11/08/2014 2:38 AM REWRITE EDITOR 11/08/2014 2:41 AM REWRITE EDITOR Arie Justice MD CHEMISTRY ORDERABLES [id number] [address] [place] [address] * (ABNORMAL) C-REACTIVE PROTEIN (11/08/2014 2:38 AM REWRITE EDITOR) Pathologist [facility] CRP 1.4(H) 0.0 - 0.5 mg/dL [facility] SERVICES [facility] Blood 11/08/2014 2:38 AM REWRITE EDITOR 11/08/2014 2:41 AM REWRITE EDITOR Arie Justice MD CHEMISTRY ORDERABLES Performing Organization Address [facility] Co de Phone Number [facility] LABORATORY SERVICES [facility]# [id number] [facility] [place] [address] * (ABNORMAL) COMPREHENSIVE METABOLIC PANEL (11/08/2014 2:38 AM REWRITE EDITOR) Pathologist [facility] GFR, >60 >=60 mL/min/1. 7 sq meter [facility] SODIUM 135(L) 136 - 145 mmol/L [facility] POTASSIUM See note. 3.5 - 5.0 mmol/L [facility] Comment:Gross hemolysis pres ent. Result unreliable. CHLORIDE 99 98 - 107 mmol/L [facility] CO2 24 22 - 29 mmol/L [facility] CALCIUM 8.9 8.6 - 10.2 mg/dL [facility] BUN 10 6 - 20 mg/dL [facility] CREATININE 0.95 0.67 - 1.17 mg/dL [facility] GLUCOSE 100(H) 79 - 99 mg/dL [facility] TOTAL PROTEIN 8.1 6.7 - 8.6 g/dL [facility] ALBUMIN 4.3 3.5 - 5.2 g/dL [facility] BILIRUBIN TOTAL 1.2 0.3 - 1.2 mg/dL [facility] ALKALINE PHOSPHATASE See note 40 - 129 U/L [facility] Comment:Gross hemolysis pres ent. Result unreliable. AST 55(H) <=40 U/L [facility] Comment:Hemolysis present. R esult may be falsely elevated. ALT 57(H) <=41 U/L [facility] Comment:Hemolysis present. R esult may be falsely elevated. GFR >60 >=60 mL/min/1. 7 sq meter [facility] Comment: eGFR has not been validated [...] on National Kid[employer] Disease Education Program. Blood 11/08/2014 2:38 AM REWRITE EDITOR 11/08/2014 2:41 AM REWRITE EDITOR Arie Justice MD CHEMISTRY ORDERABLES [facility]# [id number] [address] [facility] [place] [address] * EKG 12-LEAD (11/08/2014 1:14 AM REWRITE EDITOR) 11/08/2014 1:14 AM REWRITE EDITOR Narrative INTERFACE SYSTEM - 11/08/2014 10:41 AM REWRITE EDITOR ? Stationary ECG Study ? [facility] ? Test Date: ?11/08/2014 1:14:11 AM ? Pat Name: ? Vincent Corpus ? Department: ?? 15 ?Room: ? Gender: ? M ?Sole Molding Machine Operator: ?? [email or web address] ? : ?1970 ? Requested by: ? Order Number: [id number] ?Reading MD: ?? Henry Ricenik ? Intervals ?[place] ? Rate: ? 110 ?P: ?59 ? PA: ? 130 ?QRS: ?51 ? QRSD: ? 94 ? T: ?18 ? QT: ? 320 ? QTc: ?385 ? Interpretive Statements SINUS TACHYCARDIA NONSPECIFIC T-WAVE ABNORMALITY Electronically Signed On 11-08-14 10:41:57 REWRITE EDITOR by Henry Barboza Procedure Note Provider, Historical - 11/08/2014 Stationary ECG Study [facility] Test Date: 11/08/2014 1:14:11 AM Pat Name: Carlos Mcgee Department: 15 Room: Gender: M Sole Molding Machine Operator: [email or web address] : 1970 Requested by: Order Number: [id number] Elsa MD: Henry Barboza Intervals [place] Rate: 110 P: 59 PA: 130 QRS: 51 QRSD: 94 T: 18 QT: 320 QTc: 385 Interpretive Statements SINUS TACHYCARDIA NONSPECIFIC T-WAVE ABNORMALITY Electronically Signed On 11-08-14 10:41:57 REWRITE EDITOR by Henry Barboza Arie Justice MD ECG ORDERABLES INTERFACE SYSTEM Refer to clinic/hospital department documented in this encounter Visit Diagnoses Diagnosis Nausea- Primary Nausea alone Abdominal pain Abdominal pain, unspecified site Diverticulitis Diverticulitis of colon (without mention of hemorrhage) documented in this encounter Administered Medications Inactive Administered Medications - up to 3 most recent administrations Medication Order MAR Action Action Date Dose Rate Site ondansetron (ZOFRAN) 4 mg/2 mL injection 4 mg 4 mg, IV, ONE TIME ONLY, 1 dose, On Radha 11/08/14 at 0500, Routine Given 11/08/2014 4:58 AM REWRITE EDITOR 4 mg sodium chloride 0.9% bolus solution 500 mL 500 mL, IV, ONE TIME ONLY, 1 dose, On Radha 11/08/14 at 0230, at 1,000 mL/hr, Administer over 30 Minutes, Routine New Bag 11/08/2014 3:14 AM REWRITE EDITOR 500 mL 1000 mL/hr sodium chloride 0.9% infusion IV, at 150 mL/hr, CONTINUOUS, Starting on Radha 11/08/14 at 0230, Until Radha 11/08/14 at 0725, Routine New Bag 11/08/2014 4:06 AM REWRITE EDITOR 150 mL/hr 150 mL/hr documented in this encounter Active and Recently Administered Medications Times are shown in REWRITE EDITOR. Scheduled Medication Order 11/06/2014 11/07/2014 11/08/2014 ondansetron (ZOFRAN) 4 mg/2 mL injection 4 mg (COMPLETED) 4 mg, IV, ONE TIME ONLY, 1 dose, On Radha 11/08/14 at 0500, Routine 0458 (Given - Provid er: Sheila Ruiz, DOMITILA) sodium chloride 0.9% bolus solution 500 mL (COMPLETED) 500 mL, IV, ONE TIME ONLY, 1 dose, On Radha 11/08/14 at 0230, at 1,000 mL/hr, Administer over 30 Minutes, Routine 0314 (New Bag - Prov ider: Sheila Ruiz, RN)0344 (Stopped - Provider: Sheila Ruiz, RN) Continuous Medication Order 11/06/2014 11/07/2014 11/08/2014 sodium chloride 0.9% infusion (CANCELED) IV, at 150 mL/hr, CONTINUOUS, Starting on Radha 11/08/14 at 0230, Until Radha 11/08/14 at 0725, Routine 0406 (New Bag - Prov ider: Sheila Ruiz RN)0516 (Stopped - Provider: Sheila Ruiz RN) documented in this encounter
--- OUTSIDE RECORDS SUMMARY | 2024-09-10 04:22 | XMS_ITS | Encounter Summary ---
Author Organization [employer] Address [address] [place] [address] Care Team Providers Care Fountain Dispenser Name Role Phone Howard Trinidad MD Primary Care Provider Un available Encounter Details Date Type Department Care Team (Late st Contact Info) Description 07/11/2008 Outpatient Historical [facility], Authorized P NO ADDRESS ON FILE Ryland Virgen MD [address] [place] [id number] Social History Tobacco Use Types Packs/Day Years Used Date Smoking Tobacco: Never Assessed Sex and Gender Information Value Date Recorded Sex Assigned at Not on file Gender Identity Not on file Sexual Orientation Not on file documented as of this encounter Plan of Treatment Not on file documented as of this encounter Visit Diagnoses Not on filedocumented in this encounter Care Teams Fountain Dispenser Relationship Specialty Start Date End Date Howard Trinidad MD PCP - General Family Practice 01/25/16 01/26/16 documented as of this encounter
--- OUTSIDE RECORDS SUMMARY | 2024-09-10 04:22 | XMS_ITS | Encounter Summary ---
Author Organization [employer] Address [address] [place] [address] Care Team Providers Care Transplant Nurse Name Role Phone Howard Trinidad MD Primary Care Provider Un available Encounter Details Date Type Department Care Team (Late st Contact Info) Description 03/02/2005 Outpatient Historical [facility] Support [facility] ([facility]) [address] [place] [address] Vignesh Gurrola MD NO ADDRESS ON FILE Social History [...] on filedocumented in this encounter Care Teams Transplant Nurse Relationship Specialty Start Date End Date Howard Trinidad MD PCP - General Family Practice 01/25/16 01/26/16 documented as of this encounter
--- OUTSIDE RECORDS SUMMARY | 2024-09-10 04:22 | XMS_ITS | Encounter Summary ---
Author Organization [employer] Address [address] [place] [address] Care Team Providers Care Plexiglas Former Name Role Phone Howard Trinidad MD Primary Care Provider Un available Encounter Details Date Type Department Care Team (Late st Contact Info) Description 12/27/2003 Outpatient Historical [facility] Dave Lantigua, Authorized P NO ADDRESS ON FILE ANXIETY STATE NOS (Primary Dx) Social History Tobacco Use Types Packs/Day Years Used Date Smoking Tobacco: Never Assessed Sex and Gender Information Value Date Recorded Sex Assigned at Not on file Gender Identity Not on file Sexual Orientation Not on file documented as of this encounter Plan of Treatment Not on file documented as of this encounter Visit Diagnoses Diagnosis Anxiety state, unspecified- Primary documented in this encounter Care Teams Plexiglas Former Relationship Specialty Start Date End Date Howard Trinidad MD PCP - General Family Practice 01/25/16 01/26/16 documented as of this encounter
--- OUTSIDE RECORDS SUMMARY | 2024-09-10 04:22 | XMS_ITS | Encounter Summary ---
Author Organization [employer] Address [address] [place] [address] Care Team Providers Care Meter Shop Superintendent Name Role Phone Howard Trinidad MD Primary Care Provider Un available Encounter Details Date Type Department Care Team (Late st Contact Info) Description 03/04/2004 Outpatient Historical [facility] Courtney Gomez MD NO ADDRESS ON FILE Er, Authorized P NO ADDRESS ON FILE PANIC DISORDER (Primary Dx) Social History Tobacco Use Types Packs/Day Years Used Date Smoking Tobacco: Never Assessed Sex and Gender Information Value Date Recorded Sex Assigned at Not on file Gender Identity Not on file Sexual Orientation Not on file documented as of this encounter Plan of Treatment Not on file documented as of this encounter Visit Diagnoses Diagnosis Panic disorder without agoraphobia- Primary documented in this encounter Care Teams Meter Shop Superintendent Relationship Specialty Start Date End Date Howard Trinidad MD PCP - General Family Practice 01/25/16 01/26/16 documented as of this encounter
--- OUTSIDE RECORDS SUMMARY | 2024-09-10 04:22 | XMS_ITS | Encounter Summary ---
Author Organization [employer] Address [address] [place] [address] Care Team Providers Care Cherry Picker Operator Name Role Phone Howard Trinidad MD Primary Care Provider Un available Encounter Details Date Type Department Care Team (Late st Contact Info) Description 03/02/2004 Outpatient Historical [facility] Ian Gauthier NO ADDRESS ON FILE Er, Authorized P NO ADDRESS ON FILE ANXIETY [...] Primary documented in this encounter Care Teams Cherry Picker Operator Relationship Specialty Start Date End Date Howard Trinidad MD PCP - General Family Practice 01/25/16 01/26/16 documented as of this encounter
--- OUTSIDE RECORDS SUMMARY | 2024-09-10 04:22 | XMS_ITS | Encounter Summary ---
Author Organization [employer] Address [address] [place] [address] Care Team Providers Care Curtain Supervisor Name Role Phone Howard Trinidad MD Primary Care Provider Un available Encounter Details Date Type Department Care Team (Late st Contact Info) Description 04/27/2009 Outpatient Historical [facility], Authorized P NO ADDRESS ON FILE Balta Sahu MD [address] [place] [address] [place] [address] Edin Marcum MD [facility] [place] [address] Social History Tobacco Use Types Packs/Day Years [...] XR CHEST PA OR AP 1 VW Routine 9 12:15 AM CDT CARDIAC ENZYMES Stat 04/27/2009 12:08 AM CDT CBC WITH DIFFERENTIAL Stat 04/27/2009 12:08 AM CDT COMPREHENSIVE METABOLIC PANEL Stat 04/27/2009 12:08 AM CDT documented in this encounter Results * XR CHEST PA OR AP (04/27/2009 12:15 AM CDT) Anatomical Region Laterality Modality Chest Other 04/27/2009 12:1 5 AM CDT Narrative 04/27/2009 8:09 AM CDT ? [facility] ? [address] ?[place], [place] ??[address] ?Admit Date: 04/27/2009 ?CORPUS, VINCENT J ?Sex: M ?Admit Prov: BALTA SAHU ? Date: 1970 ?Primary Care Prov: ? CMRN: [id number] ?Room: ER-A ? SSN: [id number] ? IMAGING SERVICES ?Ordering Prov: N/A ? Accession Number: [id number] ?Interpretation ? PORTABLE AP CHEST, 04/27/2009 ? INDICATION: Chest pain. ? FINDINGS: ? The heart and mediastinum are normal. There is no infiltrate, contusion, ? pneumothorax or pleural fluid. The visualized bony thorax is normal. ? IMPRESSION: ? Normal AP chest. ? . ? Dictated by: ??LEANDER GORDON ?04/27/2009 07:51 ? Electronically signed by: ??LEANDER GORDON ?04/27/2009 08:07 ? Transcribed: ??04/27/2009 07:56 ?SMM Procedure Note Leander Gordon - 04/27/[address] [address] Admit Date: 04/27/2009 CARLOS KELLY Sex: M Admit Prov: BALTA SAHU Date: 1970 Primary Care Prov: CMRN: [id number] Room: ERA N: [id number] IMAGING SERVICES Ordering Prov: N/A Interpretation PORTABLE AP CHEST, 04/27/2009 INDICATION: Chest pain. FINDINGS: The heart and mediastinum are normal. There is no infiltrate,contusion, pneumothorax or pleural fluid. The visualized bony thorax isnormal. IMPRESSION: Normal AP chest. . Dictated by: LEANDER GORDON 04/27/2009 07:51 Electronically signed by: LEANDER GORDON 04/27/2009 08:07 Transcribed: 04/27/2009 07:56 SMM Edin Marcum MD DIAGNOSTIC IMAGING O RDERABLES * (ABNORMAL) CBC WITH DIFFERENTIAL (04/27/2009 12:08 AM CDT) MCH 27.8 27.2 - 32.6 pg [facility] MPV 9.7 9.3 - 12.4 fL [facility] HEMATOCRIT 42.4 40.0 - 48.0 % [facility] RDW-STDEV 41.9 37.1 - 48.7 fL [facility] RBC 5.29 4.50 - 5.40 M/uL [facility] MCHC 34.7 31.5 - 35.5 % [facility] MCV 80.2(L) 82.0 - 99.0 fL [facility] PLATELETS 187 140 - 350 K/uL [facility] HEMOGLOBIN 14.7 13.6 - 16.5 g/dL [facility] RDW 14.7(H) 11.5 - 14.5 % [facility] WBC 7.2 4.0 - 9.8 K/uL [facility] BASOPHILS 0 0 - 2 % [facility] BASOPHILS ABSOLUTE 0.02 0.00 - 0.20 K/uL [facility] MONOCYTES 8 3 - 13 % [facility] MONOCYTE ABSOLUTE 0.56 0.10 - 1.30 K/uL [facility] NEUTROPHILS 56 45 - 70 % [facility] NEUTROPHIL ABSOLUTE 4.00 1.90 - 7.00 K/uL [facility] EOSINOPHILS 2 0 - 7 % [facility] EOSINOPHIL ABSOLUTE 0.16 0.00 - 0.70 K/uL [facility] LYMPHOCYTES 34 16 - 45 % [facility] LYMPHOCYTE ABSOLUTE 2.43 0.70 - 4.50 K/uL [facility] Blood specimen (specimen) 04/27/2009 12:08 AM CDT 04/27/2009 12:13 AM CDT Edin Marcum MD HEMATOLOGY ORDERABLE S [facility] CLIA# [id number] [address] [place] [address] * CARDIAC ENZYMES (04/27/2009 12:08 AM CDT) [facility] TROPONIN T <0.01 <=0.03 ng/mL [facility] TROPONIN T INTERP Negative [facility] Blood specimen (specimen) 04/27/2009 12:08 AM CDT 04/27/2009 12:13 AM CDT Edin Marcum MD CHEMISTRY ORDERABLES [facility] CLIA# [id number] [address] [place] [address] * (ABNORMAL) COMPREHENSIVE METABOLIC PANEL (04/27/2009 12:08 AM CDT) [facility] CREATININE 0.92 0.67 - 1.17 mg/dL [facility] ALT 130(H) 0 - 41 U/L [facility] SODIUM 141 135 - 145 mmol/L [facility] ALKALINE PHOSPHATASE 71 40 - 129 U/L [facility] CO2 32(H) 22 - 30 mmol/L [facility] BILIRUBIN TOTAL 1.2(H) 0.2 - 1.0 mg/dL [facility] POTASSIUM 3.7 3.5 - 4.9 mmol/L [facility] TOTAL PROTEIN 8.3 6.3 - 8.6 g/dL [facility] GLUCOSE 81 65 - 99 mg/dL [facility] AST 118(H) 12 - 38 U/L [facility] BUN 10 6 - 20 mg/dL [facility] CALCIUM 9.7 8.6 - 10.2 mg/dL [facility] ALBUMIN 4.6 3.4 - 4.8 g/dL [facility] CHLORIDE 101 96 - 108 mmol/L [facility] GFR, >60 >=60 mL/min/1. 7 sq meter [facility] GFR >60 >=60 mL/min/1. 7 sq meter [facility] Comment: Modification of Diet in Renal Disease (MDRD) study formula. Estimated GFR rate interpretative information for both Americans and non- Americans is available on the [facility] [place] [place] Intranet at: [email or web address] Select: Lab Policies and Procedures Select: Reference Ranges - GFR Blood specimen (specimen) 04/27/2009 12:08 AM CDT 04/27/2009 12:13 AM CDT Edin Marcum MD CHEMISTRY ORDERABLES [facility] CLIA# [id number] [address] [place] [address] documented in this encounter Visit Diagnoses Not on filedocumented in this encounter Care Teams Curtain Supervisor Relationship Specialty Start Date End Date Howard Trinidad MD PCP - General Family Practice 01/25/16 01/26/16 documented as of this encounter
--- OUTSIDE RECORDS SUMMARY | 2024-09-10 04:22 | XMS_ITS | Encounter Summary ---
Author Organization [employer] Address [address] [place] [address] Care Team Providers Care Building Construction Estimator Name Role Phone Howard Trinidad MD Primary Care Provider Un available Encounter Details Date Type Department Care Team (Late st Contact Info) Description 03/17/2003 Outpatient Historical [facility] Venus Sotelo MD [address] [place] [phone] Er, Authorized P NO ADDRESS ON FILE DEPRESSIVE DISORDER NEC (Primary Dx) Social History Tobacco Use Types Packs/Day Years Used Date Smoking Tobacco: Never Assessed Sex and Gender Information Value Date Recorded Sex Assigned at Not on file Gender Identity Not on file Sexual Orientation Not on file documented as of this encounter Plan of Treatment Not on file documented as of this encounter Visit Diagnoses Diagnosis Depressive disorder, not elsewhere classified- Primary documented in this encounter Care Teams Building Construction Estimator Relationship Specialty Start Date End Date Howard Trinidad MD PCP - General Family Practice 01/25/16 01/26/16 documented as of this encounter
--- OUTSIDE RECORDS SUMMARY | 2024-09-10 04:22 | XMS_ITS | Encounter Summary ---
Author Organization [employer] Address [address] [place] [address] Care Team Providers Care Smokehouse Worker Name Role Phone Howard Trinidad MD Primary Care Provider Un available Encounter Details Date Type Department Care Team (Late st Contact Info) Description 03/02/2005 Outpatient Historical [facility] Courtney Gomez MD NO ADDRESS ON FILE Er, Authorized P NO ADDRESS ON FILE ABDOMINAL PAIN LLQ (Primary Dx) Social History Tobacco Use Types Packs/Day Years Used Date Smoking Tobacco: Never Assessed Sex and Gender Information Value Date Recorded Sex Assigned at Not on file Gender Identity Not on file Sexual Orientation Not on file documented as of this encounter Plan of Treatment Not on file documented as of this encounter Visit Diagnoses Diagnosis Abdominal pain, left lower quadrant- Primary documented in this encounter Care Teams Smokehouse Worker Relationship Specialty Start Date End Date Howard Trinidad MD PCP - General Family Practice 01/25/16 01/26/16 documented as of this encounter
--- OUTSIDE RECORDS SUMMARY | 2024-09-10 04:22 | XMS_ITS | Encounter Summary ---
Author Organization [employer] Address [address] [place] [address] Care Team Providers Care Carpenter Labor Supervisor Name Role Phone Howard Trinidad MD Primary Care Provider Un available Encounter Details Date Type Department Care Team (Late st Contact Info) Description 06/03/2008 Outpatient Historical [facility] [place], Authorized P NO ADDRESS ON FILE Jose Soto MD [facility] [place] [address] Social History Tobacco Use Types Packs/Day Years Used Date Smoking Tobacco: Never Assessed Sex and Gender Information Value Date Recorded Sex Assigned at Not on file Gender Identity Not on file Sexual Orientation Not on file documented as of this encounter Plan of Treatment Not on file documented as of this encounter Visit Diagnoses Not on filedocumented in this encounter Care Teams Carpenter Labor Supervisor Relationship Specialty Start Date End Date Howard Trinidad MD PCP - General Family Practice 01/25/16 01/26/16 documented as of this encounter
--- OUTSIDE RECORDS SUMMARY | 2024-09-10 04:22 | XMS_ITS | Encounter Summary ---
Author Organization [employer] Address [address] [place] [address] Care Team Providers Care Wool Hat Flanger Name Role Phone Howard Trinidad MD Primary Care Provider Un available Encounter Details Date Type Department Care Team (Late st Contact Info) Description 11/07/2004 Outpatient Historical [facility] Stanton Summers MD NO ADDRESS ON FILE Er, Authorized P NO ADDRESS ON FILE PAIN IN LIMB (Primary Dx) Social History Tobacco Use Types Packs/Day Years Used Date Smoking Tobacco: Never Assessed Sex and Gender Information Value Date Recorded Sex Assigned at Not on file Gender Identity Not on file Sexual Orientation Not on file documented as of this encounter Plan of Treatment Not on file documented as of this encounter Visit Diagnoses Diagnosis Pain in limb- Primary documented in this encounter Care Teams Wool Hat Flanger Relationship Specialty Start Date End Date Howard Trinidad MD PCP - General Family Practice 01/25/16 01/26/16 documented as of this encounter
--- OUTSIDE RECORDS SUMMARY | 2024-09-10 04:22 | XMS_ITS | Encounter Summary ---
Author Organization [employer] Address [address] [place] [address] Care Team Providers Care Fleecer Name Role Phone Howard Trinidad MD Primary Care Provider Un available Encounter Details Date Type Department Care Team (Late st Contact Info) Description 07/01/2006 Outpatient Historical [facility] Stanton Summers MD NO ADDRESS ON FILE Er, Authorized P NO ADDRESS ON FILE Unspecified Sinusitis (Chronic) (Primary Dx) Social History Tobacco Use Types Packs/Day Years Used Date Smoking Tobacco: Never Assessed Sex and Gender Information Value Date Recorded Sex Assigned at Not on file Gender Identity Not on file Sexual Orientation Not on file documented as of this encounter Plan of Treatment Not on file documented as of this encounter Visit Diagnoses Diagnosis Unspecified sinusitis (chronic)- Primary documented in this encounter Care Teams Fleecer Relationship Specialty Start Date End Date Howard Trinidad MD PCP - General Family Practice 01/25/16 01/26/16 documented as of this encounter
--- OUTSIDE RECORDS SUMMARY | 2024-09-10 04:22 | XMS_ITS | Encounter Summary ---
Author Organization [employer] Address [address] [place] [address] Care Team Providers Care Spring Machine Operator Name Role Phone Howard Trinidad MD Primary Care Provider Un available Encounter Details Date Type Department Care Team (Late st Contact Info) Description 10/18/2004 Outpatient Historical [facility] Stanton Summers MD NO ADDRESS ON FILE Er, Authorized P NO ADDRESS ON FILE SPECIAL SYMPTOM NEC/NOS (Primary Dx) Social History Tobacco Use Types Packs/Day Years Used Date Smoking Tobacco: Never Assessed Sex and Gender Information Value Date Recorded Sex Assigned at Not on file Gender Identity Not on file Sexual Orientation Not on file documented as of this encounter Plan of Treatment Not on file documented as of this encounter Visit Diagnoses Diagnosis Other and unspecified special symptom or syndrome, not elsewhere classified- Primary documented in this encounter Care Teams Spring Machine Operator Relationship Specialty Start Date End Date Howard Trinidad MD PCP - General Family Practice 01/25/16 01/26/16 documented as of this encounter
--- OUTSIDE RECORDS SUMMARY | 2024-09-10 04:22 | XMS_ITS | Encounter Summary ---
Author Organization [employer] Address [address] [place] [address] Care Team Providers Care Impregnating Helper Name Role Phone Howard Trinidad MD Primary Care Provider Un available Encounter Details Date Type Department Care Team (Late st Contact Info) Description 07/01/2006 Outpatient Historical [facility] Support [facility] ([facility]) [address] [place] [phone] Yash Bella MD Social History Tobacco Use Types Packs/Day Years Used Date Smoking Tobacco: Never Assessed Sex and Gender Information Value Date Recorded Sex Assigned at Not on file Gender Identity Not on file Sexual Orientation Not on file documented as of this encounter Plan of Treatment Not on file documented as of this encounter Visit Diagnoses Not on filedocumented in this encounter Care Teams Impregnating Helper Relationship Specialty Start Date End Date Howard Trinidad MD PCP - General Family Practice 01/25/16 01/26/16 documented as of this encounter
--- OUTSIDE RECORDS SUMMARY | 2024-09-10 04:22 | XMS_ITS | Encounter Summary ---
Author Organization [employer] Address [address] [place] [address] Care Team Providers Care Sales Development Associate Name Role Phone Howard Trinidad MD Primary Care Provider Un available Encounter Details Date Type Department Care Team (Late st Contact Info) Description 03/20/2005 Outpatient Historical [facility] North Arita MD NO ADDRESS ON FILE Er, Authorized [...] Primary documented in this encounter Care Teams Sales Development Associate Relationship Specialty Start Date End Date Howard Trinidad MD PCP - General Family Practice 01/25/16 01/26/16 documented as of this encounter
--- OUTSIDE RECORDS SUMMARY | 2024-09-10 04:22 | XMS_ITS | Encounter Summary ---
Author Organization [employer] Address [address] [place] [address] Care Team Providers Care Feather Curling Machine Operator Name Role Phone Howard Trinidad MD Primary Care Provider Un available Encounter Details Date Type Department Care Team (Late st Contact Info) Description 02/23/2007 Outpatient Historical [facility] Ian GauthierDO NO ADDRESS ON FILE Er, Authorized P NO ADDRESS ON FILE Anxiety State, Unspecified (Primary Dx) Social History Tobacco Use Types [...] Primary documented in this encounter Care Teams Feather Curling Machine Operator Relationship Specialty Start Date End Date Howard Trinidad MD PCP - General Family Practice 01/25/16 01/26/16 documented as of this encounter
--- OUTSIDE RECORDS SUMMARY | 2024-09-10 04:22 | XMS_ITS | Encounter Summary ---
Author Organization [employer] Address [address] [place] [address] Care Team Providers Care Ash Pit Worker Name Role Phone Howard Trinidad MD Primary Care Provider Un available Encounter Details Date Type Department Care Team (Late st Contact Info) Description 04/04/2004 Outpatient Historical [facility] Er, Authorized P NO ADDRESS ON FILE OTHER GENERAL SYMPTOMS (Primary Dx) Social History Tobacco Use Types Packs/Day Years Used Date Smoking Tobacco: Never Assessed Sex and Gender Information Value Date Recorded Sex Assigned at Not on file Gender Identity Not on file Sexual Orientation Not on file documented as of this encounter Plan of Treatment Not on file documented as of this encounter Visit Diagnoses Diagnosis Other general symptoms(780.99)- Primary Other general symptoms documented in this encounter Care Teams Ash Pit Worker Relationship Specialty Start Date End Date Howard Trinidad MD PCP - General Family Practice 01/25/16 01/26/16 documented as of this encounter
--- OUTSIDE RECORDS SUMMARY | 2024-09-10 04:22 | XMS_ITS | Encounter Summary ---
Author Organization [employer] Address [address] [place] [address] Care Team Providers Care Oil Well Pumper Name Role Phone Howard Trinidad MD Primary Care Provider Un available Encounter Details Date Type Department Care Team (Late st Contact Info) Description 11/22/2007 Outpatient Historical [facility] Er, Authorized P NO ADDRESS ON FILE Arie Justice MD [address] [place] [address] [place] [address] Social History Tobacco Use Types Packs/Day Years Used Date Smoking Tobacco: Never Assessed Sex and Gender Information Value Date Recorded Sex Assigned at Not on file Gender Identity Not on file Sexual Orientation Not on file documented as of this encounter Plan of Treatment Not on file documented as of this encounter Visit Diagnoses Not on filedocumented in this encounter Care Teams Oil Well Pumper Relationship Specialty Start Date End Date Howard Trinidad MD PCP - General Family Practice 01/25/16 01/26/16 documented as of this encounter
--- OUTSIDE RECORDS SUMMARY | 2024-09-10 04:22 | XMS_ITS | Encounter Summary ---
Author Organization [facility] Address [address] [place] [address] Care Team Providers Care Poultry Picker Name Role Phone Unavailable Primary Care Provider Unavailabl e Reason for Visit * Reason Comments Panic Attack pt here c/o increase d anxiety, since father last wednesday pt out of meds, sanjay lilly si, pt tearful in triage Encounter Details Date Type Department Care Team (Late st Contact Info) Description 06/10/2009 12:35 AM CDT - 06/10/2009 3:10 AM CDT Emergency [facility] Emergency Department [address] [place] [address] Ian Gauthier DO NO ADDRESS ON FILE Anxiety Discharge Disposition: Left Against Medical Advice Social History Tobacco Use Types Packs/Day Years Used Date Smoking Tobacco: Never Assessed Sex and Gender Information Value Date Recorded Sex Assigned at Not on file Gender Identity Not on file Sexual Orientation Not on file documented as of this encounter Last Filed Vital Signs Vital Sign Reading Time Taken Comments Blood Pressure 142/100 06/10/2009 12:29 AM CDT Pulse 94 06/10/2009 12:29 AM CDT Temperature 36.7 ??C (98 ??F) 06/10/2009 12:29 AM CDT Respiratory Rate 14 06/10/2009 12:29 AM CDT Oxygen Saturation 100% 06/10/2009 12:29 AM CDT Inhaled Oxygen Concentration - - Weight - - Height - - Body Mass Index - - documented in this encounter Discharge Instructions * Discharge Instructions* Ian Gauthier DO - 06/10/2009 3:08 AM CDT documented in this encounter Medications at Time of Discharge Medication Sig Dispensed Refills Start Date End Date escitalopram (LEXAPRO) 10 mg Oral Tab Take 5 mg by mouth daily. 08/28/2014 duloxetine (CYMBALTA) 60 mg Oral CpDR Take 60 mg by mouth daily. Pt non compliant 08/28/2014 documented as of this encounter ED Notes * Lluvia Bishop RN - 06/10/2009 3:[address] Gauthier to BS, pt is not SI or HI. Pt D/C to home. Ambulatory to security to escort per Dr Gauthier request. * Ian Gauthier DO - 06/10/2009 3:01 AM CDT HISTORY OF PRESENT ILLNESS Carlos Mcgee, a 39 y.o. male presents to the ED with a Chief Complaint of Panic Attack Patient is a 39 y.o. male presenting with panic. The history is provided by the patient. Panic Attack This is a chronic problem. The problem occurs every several days. The problem has not changed sinceonset. Patient states he is out of medications needs his xanax patient not suicidal or homicidal wants hisprescriptions refilled. Patient refuses to see counseling, told patient will be more than glad to evaluate and treat his condition. Patient calculating, calm, refuses to wait for counselor. Again patient not agitated, depressed, suicidal or homicidal, left on his own will. REVIEW OF SYSTEMS Review of Systems Unable to perform ROS PAST MEDICAL HISTORY REVIEWED Past Medical History Diagnosis Date ??? Depression anxiety ??? Anxiety ??? Panic Attacks Past Surgical History Procedure Date ??? Chg removal gallbladder No family history on file. History Social History Main Topics ??? Tobacco Use: Not on file ??? Alcohol Use: Not on file ??? Drug Use: Not on file ??? Sexually Active: Not on file ALLERGIES Bactrim and Levaquin HOME MEDICATIONS ??? escitalopram (LEXAPRO) 10 mg Oral Tab Take 5 mg by mouth daily. ??? duloxetine (CYMBALTA) 60 mg Oral CpDR Take 60 mg by mouth daily. Pt non compliant PHYSICAL EXAM Initial Vitals BP 06/10/09 0029 142/100 mmHg Pulse 06/10/09 0029 94 Resp 06/10/09 0029 14 Temp 06/10/09 0029 98 ??F (36.7 ??C) Temp src -- SpO2 06/10/09 0029 100 % Physical Exam Constitutional: Pt Refused Coding DIAGNOSTICS LAB: RADIOLOGY: EKG: PROCEDURES MEDICAL DECISION MAKING AND PLAN OF CARE Last vitals BP 142/100 Pulse 94 Temp 98 ??F (36.7 ??C) Resp 14 SpO2 100% CLINICAL IMPRESSION Encounter Diagnoses Code Name Primary? 300.00E Anxiety CASE DISCUSSED PATIENT COUNSELING Diagnostics reviewed and questions answered. Diagnosis, treatment options and plan of care discussed with understanding verbalized. DISPOSITION, EDUCATION AND MEDICATION RECONCILIATION Medications reconciled. See after visit summary for patient education on discharged patients. * Charlotte Austin RN - 06/10/2009 2:54 AM CDT Report given to Salome RAMESH * Charlotte Austin RN - 06/10/2009 2:29 AM CDT Pt resting on cart, no c/o at this time, pt cont to wait for MD contreras * Charlotte Austin RN - 06/10/2009 1:46 AM CDT Pt given ice pack and glass of water per request cont to await MD contreras * Charlotte Austin RN - 06/10/2009 1:08 AM CDT Male in with c/o panic attacks and increased depression since father last Wednesday, pt tearful and cooperative, denies suicidal or homicidal ideation, pt states ran out of xanax and thinks antidepression meds are messed up , pt alert and oriented x 3 cooperative at this time documented in this encounter Plan of Treatment Not on file documented as of this encounter Visit Diagnoses Diagnosis Anxiety Anxiety state, unspecified documented in this encounter
--- OUTSIDE RECORDS SUMMARY | 2024-09-10 04:22 | XMS_ITS | Encounter Summary ---
Author Organization [employer] Address [address] [place] [address] Care Team Providers Care Snack Bar Cashier Name Role Phone Howard Trinidad MD Primary Care Provider Un available Encounter Details Date Type Department Care Team (Late st Contact Info) Description 04/03/2004 Outpatient Historical [facility] Leticia Cotton [place] [facility] [place] [address] Er, Authorized P NO ADDRESS ON FILE [...] Primary documented in this encounter Care Teams Snack Bar Cashier Relationship Specialty Start Date End Date Howard Trinidad MD PCP - General Family Practice 01/25/16 01/26/16 documented as of this encounter
--- OUTSIDE RECORDS SUMMARY | 2024-09-10 04:22 | XMS_ITS | Encounter Summary ---
Author Organization [facility] Address [address] [place] [address] Care Team Providers Care Cardiology Clinical Consultant Name Role Phone Unavailable Primary Care Provider Unavailabl e Reason for Visit * Reason Comments Anxiety Pt here for increase d anxiety attacks. Pt states that he is out of meds and was seen at other er recently and referred to psychiatrist but MD called and declined appointment. Pt stating for personal reasons feels like several doctors have cx appointments and pt states i dont want people to think I am looking for drugs for ERs . Pt denies SI/HI.Pt also c/o abd pain in center of stomach and has hx of gerd. Encounter Details Date Type Department Care Team (Late st Contact Info) Description 12/29/2009 11:55 PM CDT - 12/30/2009 1:16 AM CDT Emergency [facility] Emergency Department [address] [place] [address] [place] [address] [place] [address] Anxiety Discharge Disposition: Home or Self Care Social History Tobacco Use Types Packs/Day Years Used Date Smoking Tobacco: Never Assessed Sex and Gender Information Value Date Recorded Sex Assigned at Not on file Gender Identity Not on file Sexual Orientation Not on file documented as of this encounter Last Filed Vital Signs Vital Sign Reading Time Taken Comments Blood Pressure 131/98 12/29/2009 11:42 PM CDT Pulse 70 12/29/2009 11:42 PM CDT Temperature - - Respiratory Rate 20 12/29/2009 11:42 PM CDT Oxygen Saturation 95% 12/29/2009 11:42 PM CDT Inhaled Oxygen Concentration - - Weight 117.9 kg (260 lb) 12/29/2009 11:42 PM CDT Height 188 cm (6' 2 ) 12/29/2009 11:42 PM CDT Body Mass Index 33.38 12/29/2009 11:42 PM CDT documented in this encounter Discharge Instructions * Discharge Instructions* Tramaine Atkins MD - 12/30/2009 1:07 AM CDT No driving, alcohol, or pain medications with sedative medications. Return for any worsening or concerns. * Attachments The following attachments cannot be sent through Care Everywhere. * ANXIETY DISORDER: AFTER YOUR VISIT (FIJIAN) documented in this encounter Medications at Time of Discharge Medication Sig Dispensed Refills Start Date End Date alprazolam (XANAX) 0.5 mg Oral tablet Take 2 Tabs by mouth nightly as needed for Anxiety for 8 days. 8 Tab None 12/30/2009 01/07/2010 alprazolam (XANAX) 2 mg Oral tablet Take [...] as of this encounter ED Notes * Stabhinav Manning, [facility] - 12/31/2009 12:38 PM CDT * Leslie Saleem, DOMITILA - 12/30/2009 1:15 AM CDT Patient discharged to home viaambulatory with steady gait with spouse. Patient states no improvement. Discharge information and education provided to patient. Questions answered, understanding of discharge instruction verbalized. Printed copy given. 1 script given * Tramaine Atkins MD - 12/30/2009 1:09 AM CDT HISTORY OF PRESENT ILLNESS Carlos Mcgee, a 39 y.o. male presents to the ED with a Chief Complaint of Anxiety HPI Comments: Patient presents for evaluation of anxiety. Patient reports long hx of anxiety for which he takes Xanax over a long period of time. Patient himself reports numerous evaluation at numerous locations for this but he states he has trouble finding some one who will see him. Patient states he is in the [place] and that people are scared to see him. Patient alternately reports that he is trying to stop his Xanax and is at the same time seeking a refillof his prescription. He reports continuation of the same symptoms as previously without significant change. He states he does not want to run out of his Xanax because he is doesn't want to have respiratory depression without it. Patient also reports hx GERD for which he is evaluated by [facility] animal geneticist. He reports recent evaluation for this as well as scheduled endoscopy later this week. He does not note any change in his recent symptoms. Patient is otherwise without new or additional complaints. See MDM. Patient is a 39 y.o. male presenting with anxiety. The history is provided by the patient. Anxiety This is a chronic problem. Associated symptoms include abdominal pain. Pertinent negatives include no chest pain, no headaches and no shortness of breath. REVIEW OF SYSTEMS Review of Systems Constitutional: Negative for fever and malaise/fatigue. Eyes: Negative for pain. Respiratory: Negative for cough and shortness of breath. Cardiovascular: Negative for chest pain. Gastrointestinal: Positive for abdominal pain. Negative for diarrhea. Genitourinary: Negative for flank pain. Musculoskeletal: Negative for myalgias. Skin: Negative for rash. Neurological: Negative. Negative for headaches. Endo/Heme/Allergies: Does not bruise/bleed easily. Psychiatric/Behavioral: The patient is not nervous/anxious. PAST MEDICAL HISTORY REVIEWED Past Medical History Diagnosis Date ??? Depression anxiety ??? Anxiety ??? Panic Attacks ??? Diverticulitis Past Surgical History Procedure Date ??? Chg removal gallbladder No family history on file. History Social History Main Topics ??? Tobacco Use: Not on file ??? Alcohol Use: Not on file ??? Drug Use: Not on file ??? Sexually Active: Not on file ALLERGIES Bactrim, Levaquin, Lidocaine and Sulfa (sulfonamide antibiotics) HOME MEDICATIONS Patient's Home Medications New Prescriptions for this Encounter ALPRAZOLAM (XANAX) 0.5 MG ORAL TABLET Take 2 Tabs by mouth nightly as needed for Anxiety for 8 days. Current Home Medications ALPRAZOLAM (XANAX) 2 MG ORAL TABLET Take 2 mg by mouth 3 times daily. DULOXETINE (CYMBALTA) 60 MG ORAL CPDR Take 60 mg by mouth daily. Pt non compliant ESCITALOPRAM (LEXAPRO) 10 MG ORAL TAB Take 5 mg by mouth daily. PANTOPRAZOLE (PROTONIX) 40 MG ORAL TBEC Take 40 mg by mouth daily. PROMETHAZINE (PHENERGAN) 25 MG ORAL TABLET Take 25 mg by mouth every 6 hours as needed. Medications Modified during this Encounter Medications Discontinued during this Encounter PHYSICAL EXAM Initial Vitals BP 12/29/09 2342 131/98 mmHg Pulse 12/29/09 2342 70 Resp 12/29/09 2342 20 Temp -- Temp src -- SpO2 12/29/09 2342 95 % Physical Exam Nursing note and vitals reviewed. Constitutional: He is oriented to person, place, and time. He appears well- developed and well-nourished. No distress. HENT: Head: Normocephalic and atraumatic. Nose: Nose normal. Mouth/Throat: Oropharynx is clear and moist. Eyes: Conjunctivae are normal. Right eye exhibits no discharge. [...] sounds are normal. He exhibits no distension. No tenderness. He has no rebound. Musculoskeletal: Normal range of motion. He exhibits no edema and no tenderness. Neurological: He is alert and oriented to person, place, and time. He exhibits normal muscle tone. Coordination normal. Skin: Skin is warm and dry. No rash noted. He is not diaphoretic. No erythema. Psychiatric: His behavior is normal. Judgment and thought content normal. MDM Coding Reviewed: nursing note, vitals and previous chart DIAGNOSTICS LAB: RADIOLOGY: EKG: PROCEDURES MEDICAL DECISION MAKING AND PLAN OF CARE Last vitals BP 131/98 Pulse 70 Resp 20 Ht 6' 2 (1.88 m) Wt 117.935 kg SpO2 95% Odd affect. In hx patient almost immediately started talking about reported Mafia involvement and soon thereafter displayed a large tattoo on left arm stating MAFIA . Patient made specific requests as to who he did and did not want to speak with, ultimately refusing to speak with Intake and [employer] as initially requested. [facility] records [facility], including as far as [place] (patient address = [place]). Previousprovider indicates care terminated due to concern over medication abuse. Small number of Xanax provided only to address potential for short-term withdrawal in the event that patient is truthful regarding lack of available medications. Otherwise patient refused any additional evaluation as offered. CLINICAL IMPRESSION Encounter Diagnoses Code Name Primary? 300.00E Anxiety CASE DISCUSSED PATIENT COUNSELING Diagnostics reviewed and questions answered. Diagnosis, treatment options and plan of care discussed with understanding verbalized. DISPOSITION, EDUCATION AND MEDICATION RECONCILIATION Medications reconciled. See after visit summary for patient education on discharged patients. * Leslie Saleem RN - 12/30/2009 12:59 AM CDT Pt notified that supervisor drying is with a family of a dying person and it may be 1-2 hours before they are available to seem. Pt states, that's okay, they need him more, I'll just call my molded goods controls operator tomorrow. * Leslie Saleem, DOMITILA - 12/30/2009 12:46 AM CDT Pt states he only wants to see a male counselor, only female counselors available tonight. Pt notified, declined to see counselor. Dr Atkins notified. * Leslie Saleem, DOMITILA - 12/30/2009 12:17 AM CDT Pt requests to speak with supervisor drying and counselor, States, I have a lot of things I need to get offmy chest. States he has difficulty finding a psychiatrist to work with him. Intake and supervisor drying notified, awaiting MD contreras documented in this encounter Plan of Treatment Not on file documented as of this encounter Visit Diagnoses Diagnosis Anxiety Anxiety state, unspecified documented in this encounter
--- OUTSIDE RECORDS SUMMARY | 2024-09-10 04:23 | XMS_ITS | Continuity of Care Document ---
Author Organization [facility] Address [address] [place] [address] Phone Care Team Providers Care Veterinary Medical Officer Name Role Phone Maurizio Nelson MD Unavailable Unavailable Advance Directives Directive Yes / No Effective Date File Name No Information Encounters Encounter Description Practice Location Reason(s) For Visit Diagnoses Date Provider Providers Copied on Encounter [facility], [address] [place] [address] [place], [facility], tel:[phone] [facility] No Information Omar Steven. [address] [place], [place], [facility]. tel:[phone] Family History Family Member Type Diagnosis Age At Onset No Information Payers Payer name Insurance type Covered republican ID Authoriza tion(s) No Information Social History Type Description Quantity Date Captured Comments Sex Male Smoking Status No Information Chief Complaint And Reason For Visit No Information Plan Of Treatment Date Type Action Status No Information History Of Present Illness Encounter Date Complaint History Of Prese nt Illness No Information Instructions Date Instruction Additional Infor mation No Information Assessments Type Assessment Date No Information
== END 2024-09-03 06:04 | disposition home or self-care (01) ==
PROVIDERS: Emergency Provider Emergency Medicine
DX: R00.2 Palpitations (principal); F41.9 Anxiety disorder, unspecified; F32.A Depression, unspecified; K21.9 Gastro-esophageal reflux disease without esophagitis; G47.30 Sleep apnea, unspecified; J45.909 Unspecified asthma, uncomplicated; I10 Essential (primary) hypertension; I25.2 Old myocardial infarction
CPT/HCPCS: 36415; 80053; 85025; 85610; 85730; 99283

== ENCOUNTER 2024-09-05 21:44 | Emergency (ER) | payer OTHER, SELFPAY | END 2024-09-05 23:38 | disposition left against medical advice (07) | DX: Z53.21 Procedure and treatment not carried out due to patient leaving prior to being seen by health care provider (principal) | CPT/HCPCS: 99199 ==

== ENCOUNTER 2024-09-20 18:42 | Emergency (ER) | payer OTHER, SELFPAY ==
--- NOTE | ~2024-09-20 | XR_ITS ---
CHEST RADIOGRAPH, PA AND LATERAL CLINICAL HISTORY: cough, chest congestion X 1 WEEK . COMPARISON: 08/23/2024 TECHNIQUE: PA and lateral views of the chest. FINDINGS The cardiomediastinal silhouette is unremarkable. The lungs are clear. Visualized osseous structures and soft tissues are unremarkable. IMPRESSION: No focal infiltrate or effusion. Reviewed, dictated and finalized at location A. PHONE OPERATOR RECEPTIONIST
[2024-09-20 18:50] VITALS: BP 139/84; PULSE 69; RESP 20; TEMP 36.5; O2SAT 100
--- NOTE | 2024-09-20 18:56 | ED_ITS ---
HPI - URI/Sore Throat General Chief Complaint: Upper Respiratory Infection Stated Complaint: Rib pain/lung pain/coughing Time Seen by Provider: 09/20/24 18:56 Source: patient Mode of arrival: ambulatory Limitations: no limitations History of Present Illness HPI Narrative: 54-year-old male presents with complaint of cough, nasal congestion, chest congestion and wheezing for the past week. Was given Medrol Dosepak and amoxicillin at [place] [facility]. States he was treated for a sinus infection. Finish Medrol Dosepak and is still taking amoxicillin. Has been using albuterol inhaler for cough and wheezing. Reports history of asthma. Has not scheduled a follow-up appointment with his primary care physician. Afebrile. Patient states that cough is not improving. patient requesting Chest x-ray. All systems reviewed and negative except as noted above. Related Data Home Medications ?Medication ?Instructions ?Recorded ?Confirmed ?Last Taken ?Type potassium chloride 10 mEq 10 meq PO DAILY 06/09/23 07/26/24 08/18/24 History tablet,extended release omeprazole 40 mg capsule,delayed 40 mg PO DAILY 04/22/24 08/29/24 08/18/24 History release atenolol 50 mg tablet 50 mg PO Q24H 08/29/24 08/29/24 Unknown History Allergies Allergy/AdvReac Type Severity Reaction Status Date / Time Iodinated Contrast Media Allergy Severe Anaphylaxis Verified 09/20/24 18:55 metformin Allergy Severe Stopped Verified 09/20/24 18:55 Breathing Sulfa (Sulfonamide Allergy Severe Anaphylaxis Verified 09/20/24 18:55 Antibiotics) sulfamethoxazole Allergy Severe Anaphylaxis Verified 09/20/24 18:55 famotidine Allergy Intermediate Hives Verified 09/20/24 18:55 losartan Allergy Intermediate SWLLEING Verified 09/20/24 18:55 LIP AND HIVES nebivolol Allergy Intermediate LIP Verified 09/20/24 18:55 SWELLING Quinolones Allergy Intermediate Nervousness Verified 09/20/24 18:55 valsartan Allergy Intermediate HIVES/SOB Verified 09/20/24 18:55 amlodipine Allergy Mild HIVES Verified 09/20/24 18:55 azithromycin Allergy Mild Nervousness Verified 09/20/24 18:55 pantoprazole Allergy Mild Hives Verified 09/20/24 18:55 spironolactone Allergy Mild RASH AND Verified 09/20/24 18:55 ITCHING trimethoprim Allergy Mild RASH Verified 09/20/24 18:55 morphine Allergy Unknown Verified 09/20/24 18:55 cephalexin AdvReac Mild Nervousness Verified 09/20/24 18:55 flavoxate AdvReac Mild Nervousness Verified 09/20/24 18:55 levofloxacin AdvReac Mild Nervousness Verified 09/20/24 18:55 lidocaine AdvReac Mild Nervousness Verified 09/20/24 18:55 lisinopril AdvReac Mild Nervousness Verified 09/20/24 18:55 nitrofurantoin AdvReac Mild Nervousness Verified 09/20/24 18:55 oxycodone AdvReac Mild Nervousness Verified 09/20/24 18:55 paroxetine AdvReac Mild Nervousness Verified 09/20/24 18:55 Review of Systems Review of Systems: CONSTITUTIONAL: Denies fever, chills, or sweats. EYES: Denies visual changes, redness, or discharge. ENT: Reports rhinorrhea, congestion. Denies sore throat, or otalgia. CARDIOVASCULAR: Denies chest pain, palpitations, or edema. RESPIRATORY: reports cough and dyspnea with exertion. GASTROINTESTINAL: Denies abdominal pain, nausea, vomiting, or diarrhea. GENITOURINARY: Denies dysuria or hematuria. SKIN: Denies rash or itching. MUSCULOSKELETAL: Denies back pain, joint pain, or myalgia. NEUROLOGIC: Denies headache, numbness, or weakness. PSYCHIATRIC: Denies anxiety or depression. All other systems reviewed are negative, except as documented in HPI. [facility] Past Medical History Medical History Prediabetes Allergic rhinitis Chronic sinusitis Chronic post-traumatic stress disorder (PTSD) Anxiety Depression GERD (gastroesophageal reflux disease) Sleep apnea Asthma HTN (hypertension) CAD (coronary artery disease) history [place] [facility] Surgical History Surgical History H/O gastric bypass Hx of cholecystectomy History of cardiac cath History of colonoscopy Family History Family History Grandparent Family history of obesity Hypertension Diabetes mellitus Mother Depression Patient's mother is in good health Family history of mental disorder Father Hypertension Patient's father is in good health Family history of alcoholism Cerebrovascular accident Sibling Patient's sister is in good health Patient's brother is in good health Father Cerebrovascular accident Alcoholism Hypertension Heart disease Mother Family history of malignant neoplasm Depression Hypertension Other Family history of cardiovascular disease Social History Social History Smoking status: Former smoker Smoking end date: 09/13/95 Alcohol intake: former Substance use: never Substance use type: opiates Lack of Transportation: No Lack of Food: Never True Current Housing: I Have Housing Concerned About Future Housing: No Difficulty Paying Gas/Electric Bills: No Difficulty Paying for Meds: No Currently Unemployed: No Education: Master's Degree or Higher Difficulty w/ Childcare or Family Care: No Living arrangements: alone Occupation/Education: occupation Gender identity (if verbalized by the patient): Male Sexual Orientation (if Verbalized by the Patient): Straight or Heterosexual Spiritual care concerns: No Comments At time of signature, agree with nursing past medical, surgical, social and family history. There is no relevant family history pertinent to the presenting complaint. Exam Narrative: GENERAL: This is a well-nourished, well-developed patient, in no apparent distress. HEAD: normocephalic, atraumatic. EYES: PERRL. Sclera clear/white. Vision is grossly intact. EARS: External ears normal, auditory canals clear and without drainage, TMs normal without perforation. Hearing grossly intact. NOSE: External nose normal with no obvious nasal discharge, nares without redness, no rhinorrhea. THROAT: Mucous membranes moist, posterior pharynx clear. NECK: Neck supple, non-tender without lymphadenopathy, masses or thyromegaly. CARDIOVASCULAR: Regular rate and rhythm without murmurs, gallops, or rubs. RESPIRATORY: mild coarseness with expiratory wheeze throughout all lung ryan. Breath sounds equal bilaterally. No rales, or rhonchi. SKIN: warm, Dry, intact with no suspicious lesions or rash, good texture and turgor. NEURO: awake, alert, and oriented to person, place and time. There were no obvious focal neurologic abnormalities. EXTREMITIES: No joint tenderness, effusion, or edema noted. Course Course Level of Care: [facility] Care Visit Reevaluation(s) Reevaluation #1: continues to have mild wheeze after DuoNeb. Vital Signs Vital signs: Vital Signs Temperature 36.5 C 09/20/24 18:50 Pulse Rate 69 09/20/24 18:50 Respiratory Rate 20 09/20/24 18:50 Blood Pressure 139/84 09/20/24 18:50 Pulse Oximetry 100 09/20/24 18:50 Oxygen Delivery Room Air 09/20/24 18:50 Temperature 36.5 C 09/20/24 18:50 Pulse Rate 69 09/20/24 18:50 Respiratory Rate 18 09/20/24 20:10 Blood Pressure 139/84 09/20/24 18:50 Pulse Oximetry 100 09/20/24 20:10 Oxygen Delivery Room Air 09/20/24 20:10 Reviewed MDM - URI/Sore Throat MDM Narrative Medical decision making narrative: Patient is well-appearing. Negative COVID and influenza test. Chest x-ray is negative for pneumonia. Discussed results with patient. Patient is well- appearing, no respiratory distress. Oxygen saturation is 100% room air. Recommend he continue albuterol inhaler and will prescribe prednisone 40 mg burst. Patient is aware of diagnosis, understands and agrees to treatment plan. Anticipatory guidance given. Patient agrees to follow-up as directed and is aware of reasons to seek care at the emergency department. Portions of this record may have been created with voice recognition software Lab Data Labs: Lab Results 09/20/24 Range/Units 19:20 POC Influenza A Ag Negative (Negative) POC Influenza B Ag Negative (Negative) POC SARS CoV-2 Ag Negative (Negative) Imaging Data My impression: agree with radiologist Radiologist's impression: CHEST RADIOGRAPH, PA AND LATERAL CLINICAL HISTORY: cough, chest congestion X 1 WEEK . COMPARISON: 08/23/2024 TECHNIQUE: PA and lateral views of the chest. FINDINGS The cardiomediastinal silhouette is unremarkable. The lungs are clear. Visualized osseous structures and soft tissues are unremarkable. IMPRESSION: No focal infiltrate or effusion. Discharge Plan Discharge Clinical Impression: Asthma exacerbation Patient Disposition: Home, Self-Care Condition: Stable Instructions: Asthma (ED) Additional Instructions: You were negative for COVID and influenza. Your chest x-ray was normal today. Start prednisone tomorrow morning. Continue using albuterol inhaler as prescribed. Follow-up with your primary care physician if symptoms are not improving. If you are having difficulty breathing go to the ER. Patient Language: Latvian Prescriptions: New prednisone 20 mg tablet 40 mg PO DAILY 5 Days Qty: 10 0RF albuterol sulfate 90 mcg/actuation HFA aerosol inhaler 2 puff inhalation Q4-6H PRN (Reason: shortness of breath or wheezing) Qty: 8.5 0RF (DME) Aerochamber Plus Z Stat Spacer See Rx Instructions .Route Qty: 1 0RF Rx Instructions: As directed No Action potassium chloride 10 mEq tablet extended release 10 meq PO DAILY omeprazole 40 mg capsule,delayed release(DR/EC) 40 mg PO DAILY atenolol 50 mg tablet 50 mg PO Q24H albuterol sulfate 90 mcg/actuation HFA aerosol inhaler 2 puff inhalation Q4-6H PRN (Reason: shortness of breath or wheezing) 30 Days Qty: 8.5 0RF fluticasone propionate [Flonase Allergy Relief] 50 mcg/actuation spray,suspension 1 spray intranasal BID Qty: 16 0RF Rx Instructions: administer into each nostril ferrous sulfate 325 mg (65 mg iron) tablet 325 mg PO DAILY Qty: 90 1RF escitalopram oxalate [Lexapro] 20 mg tablet 20 mg PO DAILY Qty: 30 5RF alprazolam [Xanax] 2 mg tablet 2 mg PO TID 30 Days Qty: 90 2RF Follow-up/Referrals: PHYSICIAN,INDUSTRIAL ECOLOGIST [Primary Care Provider] - Time of Disposition: 20:05
[2024-09-20] MEDS: IPRATROPIUM 0.5 MG/ALBUTEROL SULFATE 2.5 MG AMPUL.NEB 3 ML INHALATION (19:29)
[2024-09-20 19:37] LABS: EDCOVIDSCREEN Negative (Negative); EDINFLUASCREEN Negative (Negative); EDINFLUBSCREEN Negative (Negative)
[2024-09-20 20:10] VITALS: RESP 18; O2SAT 100
== END 2024-09-20 20:10 | disposition home or self-care (01) ==
PROVIDERS: Emergency Provider Nurse Practitioner Family
DX: J45.901 Unspecified asthma with (acute) exacerbation (principal); I10 Essential (primary) hypertension; I25.10 Atherosclerotic heart disease of native coronary artery without angina pectoris; Z87.891 Personal history of nicotine dependence; Z20.822 Contact with and (suspected) exposure to COVID-19
CPT/HCPCS: 71046; 87426; 87804; 94640; 99213; G0463

== ENCOUNTER 2024-10-30 17:09 | Emergency (ER) | payer OTHER, SELFPAY ==
[2024-10-30 17:17] VITALS: BP 179/100; PULSE 64; RESP 16; TEMP 36.1; O2SAT 100
--- NOTE | 2024-10-30 17:24 | ED.URI ---
HPI - URI/Sore Throat General Chief Complaint: Upper Respiratory Infection Stated Complaint: eyes red, upper respiratory issue Time Seen by Provider: 10/30/24 17:15 Source: patient, RN notes reviewed and old records reviewed Mode of arrival: ambulatory Limitations: no limitations History of Present Illness HPI Narrative: Patient presents with complaints of cough. He reports that he is just getting over the flu. He also states that he did not get in with his new primary care provider because she did not want to see him because he takes alprazolam. He reports he is therefore out of his atenolol and his omeprazole. He is requesting refills today. He is told that he can at 30 days today, no more. He is requesting be checked for influenza, COVID, and diverticulitis. It is explained to the patient to be denied capabilities check for things such tired for ticket lighted. He believes that he has diverticulitis because he just finished taking Augmentin. He reports that he believes this triggers diverticulitis. When told that we cannot test for this, he then requests testing for COVID or flu. He does not have any symptoms of diverticulitis. COVID and flu testing not warranted given his symptoms of lingering cough after influenza a couple of weeks ago Related Data Home Medications ?Medication ?Instructions ?Recorded ?Confirmed ?Last Taken ?Type potassium chloride 10 mEq 10 meq PO DAILY 06/09/23 07/26/24 08/18/24 History tablet,extended release omeprazole 40 mg capsule,delayed 40 mg PO DAILY 04/22/24 08/29/24 08/18/24 History release atenolol 50 mg tablet 50 mg PO Q24H 08/29/24 08/29/24 Unknown History Allergies Allergy/AdvReac Type Severity Reaction Status Date / Time Iodinated Contrast Media Allergy Severe Anaphylaxis Verified 10/30/24 17:25 metformin Allergy Severe Stopped Verified 10/30/24 17:25 Breathing Sulfa (Sulfonamide Allergy Severe Anaphylaxis Verified 10/30/24 17:25 Antibiotics) sulfamethoxazole Allergy Severe Anaphylaxis Verified 10/30/24 17:25 famotidine Allergy Intermediate Hives Verified 10/30/24 17:25 losartan Allergy Intermediate SWLLEING Verified 10/30/24 17:25 LIP AND HIVES nebivolol Allergy Intermediate LIP Verified 10/30/24 17:25 SWELLING Quinolones Allergy Intermediate Nervousness Verified 10/30/24 17:25 valsartan Allergy Intermediate HIVES/SOB Verified 10/30/24 17:25 amlodipine Allergy Mild HIVES Verified 10/30/24 17:25 azithromycin Allergy Mild Nervousness Verified 10/30/24 17:25 pantoprazole Allergy Mild Hives Verified 10/30/24 17:25 spironolactone Allergy Mild RASH AND Verified 10/30/24 17:25 ITCHING trimethoprim Allergy Mild RASH Verified 10/30/24 17:25 morphine Allergy Unknown Verified 10/30/24 17:25 cephalexin AdvReac Mild Nervousness Verified 10/30/24 17:25 flavoxate AdvReac Mild Nervousness Verified 10/30/24 17:25 levofloxacin AdvReac Mild Nervousness Verified 10/30/24 17:25 lidocaine AdvReac Mild Nervousness Verified 10/30/24 17:25 lisinopril AdvReac Mild Nervousness Verified 10/30/24 17:25 nitrofurantoin AdvReac Mild Nervousness Verified 10/30/24 17:25 oxycodone AdvReac Mild Nervousness Verified 10/30/24 17:25 paroxetine AdvReac Mild Nervousness Verified 10/30/24 17:25 Review of Systems Review of Systems: All systems reviewed & are unremarkable except as noted in HPI and below Constitutional: Constitutional: Reports no additional constitutional complaints ENT: Reports system reviewed and no additional complaints, except as documented Cardiovascular: Cardiovascular: Reports no additional cardiovascular complaints Respiratory: Respiratory: Reports no additional respiratory complaints and Reports cough Gastrointestinal: Gastrointestinal: Reports no additional gastrointestinal complaints [facility] Past Medical History Medical History Prediabetes Allergic rhinitis Chronic sinusitis Chronic post-traumatic stress disorder (PTSD) Anxiety Depression GERD (gastroesophageal reflux disease) Sleep apnea Asthma HTN (hypertension) CAD (coronary artery disease) history [place]cussion Surgical History Surgical History H/O gastric bypass Hx of cholecystectomy History of cardiac cath History of colonoscopy Family History Family History Grandparent Family history of obesity Hypertension Diabetes mellitus Mother Depression Patient's mother is in good health Family history of mental disorder Father Hypertension Patient's father is in good health Family history of alcoholism Cerebrovascular accident Sibling Patient's sister is in good health Patient's brother is in good health Father Cerebrovascular accident Alcoholism Hypertension Heart disease Mother Family history of malignant neoplasm Depression Hypertension Other Family history of cardiovascular disease Social History Social History Smoking status: Former smoker Smoking end date: 09/13/95 Alcohol intake: former Substance use: never Substance use type: opiates Lack of Transportation: No Lack of Food: Never True Current Housing: I Have Housing Concerned About Future Housing: No Difficulty Paying Gas/Electric Bills: No Difficulty Paying for Meds: No Currently Unemployed: No Education: Master's Degree or Higher Difficulty w/ Childcare or Family Care: No Living arrangements: alone Occupation/Education: occupation Gender identity (if verbalized by the patient): Male Sexual Orientation (if Verbalized by the Patient): Straight or Heterosexual Spiritual care concerns: No Comments At the time of my signature, I reviewed and agree with the nursing past medical, surgical, social, and family history. There is no relevant family history pertinent to the patient complaint. Exam Const: General: cooperative, no acute distress, alert and awake Orientation/consciousness: oriented to person, oriented to place and oriented to time HENMT: Head: normal to inspection Resp: Effort & Inspection: normal respiratory effort and able to speak in complete sentences Auscultation: clear to auscultation bilaterally, no crackles, no rales, no rhonchi and no wheezes Cardio: Palpation: normal PMI Rate: regular rate Rhythm: regular rhythm Heart sounds: S1 normal heart sound present and S2 normal heart sound present Neuro: General: oriented to person, oriented to place and oriented to time Cranial nerves: Yes CN's II-XII intact bilaterally Psych: Appearance: grossly normal Thought process: Normal thought process present Insight: Good insight present (Psych) Judgement: Good judgement present (Psych) Course Course Level of Care: Express Care Visit Vital Signs Vital signs: Vital Signs Temperature 96.9 F L 10/30/24 17:17 Pulse Rate 64 10/30/24 17:17 Respiratory Rate 16 10/30/24 17:17 Blood Pressure 179/100 H 10/30/24 17:17 Pulse Oximetry 100 10/30/24 17:17 Oxygen Delivery Room Air 10/30/24 17:17 Temperature 96.9 F L 10/30/24 17:17 Pulse Rate 64 10/30/24 17:17 Respiratory Rate 16 10/30/24 17:17 Blood Pressure 179/100 H 10/30/24 17:17 Pulse Oximetry 100 10/30/24 17:17 Oxygen Delivery Room Air 10/30/24 17:17 Reviewed MDM - URI/Sore Throat MDM Narrative Medical decision making narrative: Reassuring physical exam. Patient advised to go to emergency department if he does develop symptoms of diverticulitis. He was given 30 day prescription for his maintenance medications. Differential Diagnosis Differential diagnosis: Likely upper respiratory infection and viral infection Medical Records Attestation: I reviewed the patient's medical records. Discharge Plan Discharge Clinical Impression: Cough, Encounter for medication refill Patient Disposition: Home, Self-Care Condition: Stable Instructions: Antibiotic Form, Cold Symptoms (ED) Additional Instructions: Follow-up with primary care provider. Emergency department for new or worsening symptoms. Patient Language: Occitan Prescriptions: New omeprazole 40 mg capsule,delayed release(DR/EC) 40 mg PO DAILY Qty: 30 0RF atenolol 100 mg tablet 100 mg PO DAILY Qty: 30 0RF omeprazole 40 mg capsule,delayed release(DR/EC) 40 mg PO DAILY Qty: 30 0RF atenolol 100 mg tablet 100 mg PO DAILY Qty: 30 0RF No Action potassium chloride 10 mEq tablet extended release 10 meq PO DAILY omeprazole 40 mg capsule,delayed release(DR/EC) 40 mg PO DAILY atenolol 50 mg tablet 50 mg PO Q24H Patient Comments: PT STATES HE IS NOW TAKING 100MG PO DAULY omeprazole 40 mg capsule,delayed release(DR/EC) 40 mg PO DAILY 30 Days Qty: 30 0RF atenolol 100 mg tablet 100 mg PO DAILY 30 Days Qty: 30 0RF albuterol sulfate 90 mcg/actuation HFA aerosol inhaler 2 puff inhalation Q4-6H PRN (Reason: shortness of breath or wheezing) 30 Days Qty: 8.5 0RF fluticasone propionate [Flonase Allergy Relief] 50 mcg/actuation spray,suspension 1 spray intranasal BID Qty: 16 0RF Rx Instructions: administer into each nostril (DME) Aerochamber Plus Z Stat Spacer See Rx Instructions .Route Qty: 1 0RF Rx Instructions: As directed prednisone 20 mg tablet 40 mg PO DAILY 3 Days Qty: 6 0RF ferrous sulfate 325 mg (65 mg iron) tablet 325 mg PO DAILY Qty: 90 1RF escitalopram oxalate [Lexapro] 20 mg tablet 20 mg PO DAILY Qty: 30 5RF Follow-up/Referrals: PHYSICIAN,CONSTRUCTION SECRETARY [Primary Care Provider] - 2 Weeks Time of Disposition: 17:35
== END 2024-10-30 17:35 | disposition home or self-care (01) ==
PROVIDERS: Emergency Provider Nurse Practitioner Family
DX: R05.9 Cough, unspecified (principal); Z76.0 Encounter for issue of repeat prescription; I10 Essential (primary) hypertension; K21.9 Gastro-esophageal reflux disease without esophagitis; J45.909 Unspecified asthma, uncomplicated; I25.10 Atherosclerotic heart disease of native coronary artery without angina pectoris; I25.2 Old myocardial infarction; Z98.84 Bariatric surgery status; R73.03 Prediabetes; F41.9 Anxiety disorder, unspecified; F32.A Depression, unspecified
CPT/HCPCS: 99211; G0463

== ENCOUNTER 2024-11-21 11:50 | Emergency (ER) | payer OTHER, SELFPAY ==
[2024-11-21 11:56] VITALS: BP 155/82; PULSE 66; RESP 16; TEMP 36.9; O2SAT 98
--- NOTE | 2024-11-21 11:56 | ED_ITS ---
HPI - URI/Sore Throat General Chief Complaint: Ear Stated Complaint: Sinus/Ears Irritation Time Seen by Provider: 11/21/24 11:56 Source: patient, RN notes reviewed and old records reviewed Mode of arrival: ambulatory Limitations: no limitations History of Present Illness HPI Narrative: 54-year-old male presents to the [facility] with complaints of ear pressure, irritation as well as frontal sinus pain and pressure. Patient was evaluated on the 30 of October, 3 weeks ago for similar issues as well as a cough. Patient reports the cough is better. States at that time he was seen here and went to [facility] in [place], evaluated and was told he had influenza a again this year. Reports that 2 weeks prior he was diagnosed with influenza. Patient reports multiple allergies to medications During exam patient reports symptoms anywhere from 2-6 weeks however patient sinus issues appear more chronic. Related Data Home Medications ?Medication ?Instructions ?Recorded ?Confirmed ?Last Taken ?Type potassium chloride 10 mEq 10 meq PO DAILY 06/09/23 07/26/24 08/18/24 History tablet,extended release omeprazole 40 mg capsule,delayed 40 mg PO DAILY 04/22/24 08/29/24 08/18/24 History release atenolol 50 mg tablet 50 mg PO Q24H 08/29/24 08/29/24 Unknown History Allergies Allergy/AdvReac Type Severity Reaction Status Date / Time Iodinated Contrast Media Allergy Severe Anaphylaxis Verified 11/21/24 11:53 metformin Allergy Severe Stopped Verified 11/21/24 11:53 Breathing Sulfa (Sulfonamide Allergy Severe Anaphylaxis Verified 11/21/24 11:53 Antibiotics) sulfamethoxazole Allergy Severe Anaphylaxis Verified 11/21/24 11:53 famotidine Allergy Intermediate Hives Verified 11/21/24 11:53 losartan Allergy Intermediate SWLLEING Verified 11/21/24 11:53 LIP AND HIVES nebivolol Allergy Intermediate LIP Verified 11/21/24 11:53 SWELLING Quinolones Allergy Intermediate Nervousness Verified 11/21/24 11:53 valsartan Allergy Intermediate HIVES/SOB Verified 11/21/24 11:53 amlodipine Allergy Mild HIVES Verified 11/21/24 11:53 azithromycin Allergy Mild Nervousness Verified 11/21/24 11:53 pantoprazole Allergy Mild Hives Verified 11/21/24 11:53 spironolactone Allergy Mild RASH AND Verified 11/21/24 11:53 ITCHING trimethoprim Allergy Mild RASH Verified 11/21/24 11:53 morphine Allergy Unknown Verified 11/21/24 11:53 cephalexin AdvReac Mild Nervousness Verified 11/21/24 11:53 flavoxate AdvReac Mild Nervousness Verified 11/21/24 11:53 levofloxacin AdvReac Mild Nervousness Verified 11/21/24 11:53 lidocaine AdvReac Mild Nervousness Verified 11/21/24 11:53 lisinopril AdvReac Mild Nervousness Verified 11/21/24 11:53 nitrofurantoin AdvReac Mild Nervousness Verified 11/21/24 11:53 oxycodone AdvReac Mild Nervousness Verified 11/21/24 11:53 paroxetine AdvReac Mild Nervousness Verified 11/21/24 11:53 Review of Systems Review of Systems: All systems reviewed & are unremarkable except as noted in HPI and below Constitutional: Constitutional: Reports no additional constitutional complaints ENT: Reports as per HPI, Reports ear discharge, Reports otalgia and Reports sinus pressure Cardiovascular: Cardiovascular: Reports no additional cardiovascular complaints, Denies chest pain and Denies dyspnea Respiratory: Respiratory: Reports no additional respiratory complaints, Denies chest congestion, Denies cough and Denies dyspnea Musculoskeletal: Musculoskeletal: Reports no additional musculoskeletal complaints Integumentary/Breasts: Skin/Breast: Reports system reviewed and no additional complaints, except as docu PMFSH Past Medical History Medical History Prediabetes Allergic rhinitis Chronic sinusitis Chronic post-traumatic stress disorder (PTSD) Anxiety Depression GERD (gastroesophageal reflux disease) Sleep apnea Asthma HTN (hypertension) CAD (coronary artery disease) history [place] Surgical History Surgical History H/O gastric bypass Hx of cholecystectomy History of cardiac cath History of colonoscopy Family History Family History Grandparent Family history of obesity Hypertension Diabetes mellitus Mother Depression Patient's mother is in good health Family history of mental disorder Father Hypertension Patient's father is in good health Family history of alcoholism Cerebrovascular accident Sibling Patient's sister is in good health Patient's brother is in good health Father Cerebrovascular accident Alcoholism Hypertension Heart disease Mother Family history of malignant neoplasm Depression Hypertension Other Family history of cardiovascular disease Social History Social History Smoking status: Former smoker Smoking end date: 09/13/95 Alcohol intake: former Substance use: never Substance use type: opiates Lack of Transportation: No Lack of Food: Never True Current Housing: I Have Housing Concerned About Future Housing: No Difficulty Paying Gas/Electric Bills: No Difficulty Paying for Meds: No Currently Unemployed: No Education: Master's Degree or Higher Difficulty w/ Childcare or Family Care: No Living arrangements: alone Occupation/Education: occupation Gender identity (if verbalized by the patient): Male Sexual Orientation (if Verbalized by the Patient): Straight or Heterosexual Spiritual care concerns: No Comments At the time of my signature, I reviewed and agree with the nursing past medical, surgical, social, and family history. There is no relevant family history pertinent to the patient complaint. Exam Const: General: cooperative, healthy appearing, comfortable, no acute distress, well developed, alert and well nourished Nutritional Appearance: well nourished and obese Orientation/consciousness: patient oriented x3 Limitations: no limitations HENMT: Head: normal to inspection Ears: hearing grossly normal bilaterally, external ears normal, EAC's normal, mastoids normal, no periauricular adenopathy and TM abnormal with fluid behind the TM bilateral; not bulging and not erythematous Face/Nose/Sinus: Normal external nose present, Normal nares present, No nasal polyps present, No nasal discharge present, normal facial exam and sinus tenderness (Frontal) Face and sinus: normal facial exam, face symmetric, no abrasions, no ecchymosis, no erythema and no fluctuance Mouth: Yes Normal oral and palatal mucosa present, Yes lip normal, Yes tongue normal and Yes moist mucous membranes Throat: posterior oropharynx normal, uvula midline and no uvular edema Eyes: General: appearance normal, both eyes and all related structures Alignment and Position: alignment normal Neck: Neck: normal visual inspection, full ROM, no lymphadenopathy and no meningeal signs Chest: Chest palpation & inspection: normal inspection of the chest Resp: Effort & Inspection: normal respiratory effort and able to speak in complete sentences Auscultation: clear to auscultation bilaterally, no crackles, no rales, no rhonchi and no wheezes Cardio: Rate: regular rate Skin: General skin exam: normal color and no rashes or lesions noted Neuro: General: patient oriented x3, gait normal, moves all extremities and no meningeal signs Cognition (Neuro): normal cognition Speech: normal speech Gait exam (Neuro): Normal gait present Extrem: General: normal to inspection, full ROM, capillary refill normal and normal gait Psych: Appearance: grossly normal and well kempt Mental Status: mental status grossly normal Speech and movement: Normal speech and movement present and Clear speech present Affect: normal affect Attitude: cooperative Course Course Level of Care: Express Care Visit Vital Signs Vital signs: Vital Signs Temperature 98.4 F 11/21/24 11:56 Pulse Rate 66 11/21/24 11:56 Respiratory Rate 16 11/21/24 11:56 Blood Pressure 155/82 H 11/21/24 11:56 Pulse Oximetry 98 11/21/24 11:56 Oxygen Delivery Room Air 11/21/24 11:56 Temperature 98.4 F 11/21/24 11:56 Pulse Rate 66 11/21/24 11:56 Respiratory Rate 16 11/21/24 11:56 Blood Pressure 155/82 H 11/21/24 11:56 Pulse Oximetry 98 11/21/24 11:56 Oxygen Delivery Room Air 11/21/24 11:56 Reviewed MDM - URI/Sore Throat MDM Narrative Medical decision making narrative: Patient is sitting comfortably in exam room. Nontoxic, vitals are stable except blood pressure mildly elevated. Patient with a history of elevated blood pressure. Patient presents with probably chronic sinusitis, reports ear discomfort, clear fluid noted however no signs of infection. Discussed with patient in group detail that these are chronic findings. He needs to follow up with his primary care provider or an ENT provider. Patient started talking negatively about multiple providers. Offered to give patient advocate phone number, he stated he already had it. Discharge instructions reviewed with patient, as well as provided in writing per nursing staff. The instructions also include specific and strict return/GO TO THE ER as well as f/u information. All questions have been answered, and the patient deny any further questions with discharge and discharge plan. Some parts of this dictation were generated by voice recognition software and may contain typographical and/or grammatical inaccuracies. Differential Diagnosis Differential diagnosis: Likely upper respiratory infection, otitis media, sinusitis, viral infection, bronchitis, influenza and pharyngitis Critical Care Time Critical Care Time Critical Care Time: No Discharge Plan Discharge Clinical Impression: Chronic sinusitis, Acute serous otitis media, bilateral Patient Disposition: Home, Self-Care Condition: Stable Instructions: Sinusitis (ED), Fluid In The Ear (Serous Otitis Media) (ED) Additional Instructions: The most important part of your care is following up both with primary care provider for further management of your chronic health issues. Follow-up with an ENT for your chronic sinusitis. It is very important to treat your symptoms. Drink plenty of water, Gatorade, Pedialyte, ice pops or Jell-O. -Alternate Tylenol and Motrin per package directions for fever or pain. You can alternate every 4 hours -Antihistamine medication such as Zyrtec/Claritin/Anjelica during the day can help improve symptoms. -doing daily nasal irrigations can help relieve pressure your sinuses. Things like a Neti pot or neilmed sinus rinses -Use Flonase twice a day for 5 days then daily to help reduce the inflammation and dry up your sinuses. -You can also use Coricidin or Mucinex. Be sure to drink plenty of water with this medication at least 8 ounces with every dose and it is important to drink 8 to 10 glasses of water per day. Water is a natural decongestant -Eat and drink things that are easy to swallow, like tea or soup, or popsicles. -Oral rinses such as: Salt water gargles and/or may use topical anesthetic (eg. Chloraseptic spray) or lozenges to relieve dryness or throat pain). -Frequent hand washing or hand hide trimmer is one of the best ways to prevent spread of infection. -Using a vaporizer or humidifier at night will also help thin secretions and help with coughing up phlegm. -Follow up with primary care provider in 7-10 days if condition is not improving - For new or worsening symptoms go directly to the nearest ER Patient Language: Italian Prescriptions: New methylprednisolone [Medrol (Vega)] 4 mg tablets,dose pack See Rx Instructions PO .COMPLEX Qty: 21 0RF Rx Instructions: orally per package directions fluticasone propionate [24 Hour Allergy Relief] 50 mcg/actuation spray,suspension 2 spray intranasal DAILY Qty: 16 0RF Rx Instructions: administer into each nostril No Action potassium chloride 10 mEq tablet extended release 10 meq PO DAILY omeprazole 40 mg capsule,delayed release(DR/EC) 40 mg PO DAILY atenolol 50 mg tablet 50 mg PO Q24H Patient Comments: PT STATES HE IS NOW TAKING 100MG PO DAULY omeprazole 40 mg capsule,delayed release(DR/EC) 40 mg PO DAILY 30 Days Qty: 30 0RF atenolol 100 mg tablet 100 mg PO DAILY 30 Days Qty: 30 0RF albuterol sulfate 90 mcg/actuation HFA aerosol inhaler 2 puff inhalation Q4-6H PRN (Reason: shortness of breath or wheezing) 30 Days Qty: 8.5 0RF fluticasone propionate [Flonase Allergy Relief] 50 mcg/actuation spray,suspension 1 spray intranasal BID Qty: 16 0RF Rx Instructions: administer into each nostril (DME) Aerochamber Plus Z Stat Spacer See Rx Instructions .Route Qty: 1 0RF Rx Instructions: As directed omeprazole 40 mg capsule,delayed release(DR/EC) 40 mg PO DAILY Qty: 30 0RF atenolol 100 mg tablet 100 mg PO DAILY Qty: 30 0RF omeprazole 40 mg capsule,delayed release(DR/EC) 40 mg PO DAILY Qty: 30 0RF atenolol 100 mg tablet 100 mg PO DAILY Qty: 30 0RF ferrous sulfate 325 mg (65 mg iron) tablet 325 mg PO DAILY Qty: 90 1RF escitalopram oxalate [Lexapro] 20 mg tablet 20 mg PO DAILY Qty: 30 5RF Follow-up/Referrals: Edin Becerril MD [Physician] - PHYSICIAN,[facility] [Primary Care Provider] - Time of Disposition: 12:22
== END 2024-11-21 12:30 | disposition home or self-care (01) ==
PROVIDERS: Emergency Provider Nurse Practitioner
DX: J32.9 Chronic sinusitis, unspecified (principal); H65.03 Acute serous otitis media, bilateral; Z87.891 Personal history of nicotine dependence; K21.9 Gastro-esophageal reflux disease without esophagitis; I10 Essential (primary) hypertension; R73.03 Prediabetes; I25.10 Atherosclerotic heart disease of native coronary artery without angina pectoris; I25.2 Old myocardial infarction; Z98.84 Bariatric surgery status
CPT/HCPCS: 99213; G0463

== ENCOUNTER 2024-11-27 10:17 | Emergency (ER) | payer OTHER, SELFPAY ==
--- NOTE | ~2024-11-27 | CT_ITS ---
EXAMINATION: CT brain wo con DATE: 11/27/2024 15:51 INDICATION: Headache TECHNIQUE: Computed tomography (CT) of the head was performed without intravenous contrast. Sagittal and coronal reconstructions were performed. The mA was adjusted according to patient size. Iterative reconstruction technique was employed. The dose-length product was 681.00 mGy-cm. COMPARISON: 02/25/2024 FINDINGS: No acute intracranial hemorrhage, acute infarction or abnormal extra axial fluid collection. Symmetri c prominence of the sulci consistent with mild age-appropriate diffuse cerebral volume loss. Ventricl es are normal and symmetric. No mass/mass effect. Chronic scarring in the scalp posterior to the vert ex. The orbits, paranasal sinuses and mastoid air cells are normal. IMPRESSION: 1. No acute intracranial process. Reviewed, dictated and finalized at location A.
--- NOTE | ~2024-11-27 | XR_ITS ---
XR chest 2V Ordering provider: Miguel Lennon MD History: 54 years Male with . CP, HEADACHES, HYPERTENSION . Comparison: September 20, 2024 FINDINGS: MEDIASTINUM: The cardiac silhouette is not enlarged. LUNGS: No infiltrates, effusions or pneumothorax. OTHER: No free air under the diaphragm. Degenerative changes of the spine. IMPRESSION: No acute cardiopulmonary pathology. Reviewed, dictated and finalized at location A.
--- NOTE | 2024-11-27 10:18 | ECG_ITS ---
Test Date: 2024-11-27 10:23:21 Measurements Intervals [place] Rate: 64 P: -2 PA: 143 QRS: 19 QRSD: 110 T: 31 QT: 400 QTc: 415 Interpretive Statements SINUS RHYTHM Compared to ECG 07/26/2024 11:38:41 NO SIGNIFICANT CHANGES Electronically Signed On 11-28-2024 16:35:06 CDT by Jose Wilson M.D.
[2024-11-27 10:36] VITALS: BP 162/85; PULSE 68; RESP 18; TEMP 36.9; O2SAT 100
--- NOTE | 2024-11-27 10:39 | PC.NURSE ---
unsuccessful lab draw attempt in triage, pt declines repeat trial at this time
[2024-11-27 11:20] LABS: Basophils Percent Auto 0.5 % (0.2-1.2); Eosinophils Absolute Auto 0.1 K/mm3 (0-0.3); Eosinophils Percent Auto 1.4 % (0-4.4); Hematocrit 38.9 % (42.0-52.0); Hemoglobin 11.5 g/dL (14.0-18.0); Immature Granulocyte Absolute 0.03 K/mm3 (0.00-0.031); Immature Granulocyte Percent A 0.5 % (0-0.5); Lymphocytes Absolute Auto 1.76 K/mm3 (0.9-3.2); Mean Corpuscular HGB Conc 29.6 g/dl (32-36); Mean Corpuscular Volume 67.8 fl (80-100); Monocytes Absolute Auto 0.5 K/mm3 (0.1-0.6); Monocytes Percent Auto 7.2 % (2.6-8.5); Neutrophils Absolute Auto 3.9 K/mm3 (1.3-6.7); Neutrophils Percent Auto 62.4 % (45.5-73.1); Platelet Count Result 208 k/mm3 (150-375); Red Blood Count 5.74 M/mm3 (4.6-6.20); Red Cell Distribution Width 18.9 % (11.5-14.5); White Blood Count 6.3 K/mm3 (4.5-10.0)
[2024-11-27 11:31] LABS: Alanine Aminotransferase 28 U/L (6-50); Albumin Level 4.6 g/dL (3.5-5.1); Alkaline Phosphatase 70 U/L (38-126); Anion Gap 9 mmol/L (4-12); Aspartate Amino Transferase 23 U/L (17-59); Bilirubin,Total 1.4 mg/dL (0.2-1.3); Blood Urea Nitrogen 15 mg/dL (9-20); Calcium 9.3 mg/dL (8.4-10.2); Carbon Dioxide 30 mmol/L (22-30); Chloride 102 mmol/L (98-107); Estimated CRCL calculation 117 ml/min; Estimated Glomerular Filt Rate > 60; Glucose 125 mg/dL (65-110); Lipase 142 U/L (23-300); Potassium 3.5 mmol/L (3.4-5.0); Sodium 141 mmol/L (137-145)
[2024-11-27 11:43] LABS: Troponin I < 0.012 ng/mL (0.000-0.034)
[2024-11-27 12:01] LABS: Platelet Estimate Adequate (Adequate)
[2024-11-27 12:02] LABS: Microcytosis 1+ (NORMAL); Schistocytes None Seen
[2024-11-27 12:03] LABS: Hypochromasia 1+
[2024-11-27 12:05] LABS: Prothrombin Time 13.2 Seconds (11.1-14.7)
[2024-11-27 12:21] VITALS: BP 152/98; PULSE 63; RESP 18; TEMP 36.5; O2SAT 99
--- NOTE | 2024-11-27 12:21 | PC.NURSE ---
Patient is aggravated. Patient is being very rude to staff.
[2024-11-27 16:29] LABS: Troponin I < 0.012 ng/mL (0.000-0.034)
[2024-11-27 17:07] LABS: Influenza A QL RT-PCR Negative (Negative); Influenza B QL RT-PCR Negative (Negative); RSV RNA, RT-PCR Negative (Negative); SARS-CoV-2 RNA PCR Negative (Negative)
--- NOTE | 2024-11-27 17:22 | ED_ITS ---
HPI - General Adult General Chief complaint: Chest Pain Stated complaint: CP x 3 days Time Seen by Provider: 11/27/24 15:25 History of Present Illness HPI narrative: 54-year-old male presents to the emergency department for evaluation for multiple complaints including head congestion, left-sided muscular chest pain, ear pressure and gastritis has been ongoing for the last 7 weeks. Patient states he did run out of his omeprazole last night. Patient does have history of gastritis Related Data Home Medications ?Medication ?Instructions ?Recorded ?Confirmed ?Last Taken ?Type potassium chloride 10 mEq 10 meq PO DAILY 06/09/23 07/26/24 08/18/24 History tablet,extended release omeprazole 40 mg capsule,delayed 40 mg PO DAILY 04/22/24 08/29/24 08/18/24 History release atenolol 50 mg tablet 50 mg PO Q24H 08/29/24 08/29/24 Unknown History Allergies Allergy/AdvReac Type Severity Reaction Status Date / Time Iodinated Contrast Media Allergy Severe Anaphylaxis Verified 11/27/24 17:51 metformin Allergy Severe Stopped Verified 11/27/24 17:51 Breathing Sulfa (Sulfonamide Allergy Severe Anaphylaxis Verified 11/27/24 17:51 Antibiotics) sulfamethoxazole Allergy Severe Anaphylaxis Verified 11/27/24 17:51 famotidine Allergy Intermediate Hives Verified 11/27/24 17:51 losartan Allergy Intermediate SWLLEING Verified 11/27/24 17:51 LIP AND HIVES nebivolol Allergy Intermediate LIP Verified 11/27/24 17:51 SWELLING Quinolones Allergy Intermediate Nervousness Verified 11/27/24 17:51 valsartan Allergy Intermediate HIVES/SOB Verified 11/27/24 17:51 amlodipine Allergy Mild HIVES Verified 11/27/24 17:51 azithromycin Allergy Mild Nervousness Verified 11/27/24 17:51 pantoprazole Allergy Mild Hives Verified 11/27/24 17:51 spironolactone Allergy Mild RASH AND Verified 11/27/24 17:51 ITCHING trimethoprim Allergy Mild RASH Verified 11/27/24 17:51 morphine Allergy Unknown Verified 11/27/24 17:51 cephalexin AdvReac Mild Nervousness Verified 11/27/24 17:51 flavoxate AdvReac Mild Nervousness Verified 11/27/24 17:51 levofloxacin AdvReac Mild Nervousness Verified 11/27/24 17:51 lidocaine AdvReac Mild Nervousness Verified 11/27/24 17:51 lisinopril AdvReac Mild Nervousness Verified 11/27/24 17:51 nitrofurantoin AdvReac Mild Nervousness Verified 11/27/24 17:51 oxycodone AdvReac Mild Nervousness Verified 11/27/24 17:51 paroxetine AdvReac Mild Nervousness Verified 11/27/24 17:51 Review of Systems 2 Review of Systems: All systems reviewed & are unremarkable except as noted in HPI and below PMFSH Past Medical History Medical History Prediabetes Allergic rhinitis Chronic sinusitis Chronic post-traumatic stress disorder (PTSD) Anxiety Depression GERD (gastroesophageal reflux disease) Sleep apnea Asthma HTN (hypertension) CAD (coronary artery disease) history NM Concussion Surgical History Surgical History H/O gastric bypass Hx of cholecystectomy History of cardiac cath History of colonoscopy Family History Family History Grandparent Family history of obesity Hypertension Diabetes mellitus Mother Depression Patient's mother is in good health Family history of mental disorder Father Hypertension Patient's father is in good health Family history of alcoholism Cerebrovascular accident Sibling Patient's sister is in good health Patient's brother is in good health Father Cerebrovascular accident Alcoholism Hypertension Heart disease Mother Family history of malignant neoplasm Depression Hypertension Other Family history of cardiovascular disease Social History Social History Smoking status: Former smoker Smoking end date: 09/13/95 Alcohol intake: former Substance use: never Substance use type: opiates Lack of Transportation: No Lack of Food: Never True Current Housing: I Have Housing Concerned About Future Housing: No Difficulty Paying Gas/Electric Bills: No Difficulty Paying for Meds: No Currently Unemployed: No Education: Master's Degree or Higher Difficulty w/ Childcare or Family Care: No Living arrangements: alone Occupation/Education: occupation Gender identity (if verbalized by the patient): Male Sexual Orientation (if Verbalized by the Patient): Straight or Heterosexual Spiritual care concerns: No Exam 2 Narrative: APPEARANCE: Well appearing, no pain, no distress, well-nourished. HEAD: normocephalic, atraumatic. EYES: PERRLA/EOMI, conjunctivae clear. NOSE: Normal no drainage EARS:TMS clear with good light reflex. THROAT: Pharynx clear, no exudate. NECK: Supple. No adenopathy, no masses. RESPIRATORY: Airway patent, respirations nonlabored. Clear to auscultation bilaterally, no rales, rhonchi, wheezing. CARDIOVASCULAR: Regular rate and rhythm without murmurs rubs or gallops. ABDOMINAL: Soft, nontender, nondistended, normal bowel sounds MUSCULOSKELETAL: Moves all extremities. Strength/ROM intact, No edema, No calf tenderness. NEURO: Alert. Cranial nerves II through XII intact. Grossly intact SKIN: Warm, dry. Normal Color Course Vital Signs Vital signs: Vital Signs Temperature 98.4 F 11/27/24 10:36 Pulse Rate 68 11/27/24 10:36 Respiratory Rate 18 11/27/24 10:36 Blood Pressure 162/85 H 11/27/24 10:36 Pulse Oximetry 100 11/27/24 10:36 Oxygen Delivery Room Air 11/27/24 10:36 Temperature 97.7 F 11/27/24 12:21 Pulse Rate 63 11/27/24 12:21 Respiratory Rate 18 11/27/24 12:21 Blood Pressure 152/98 H 11/27/24 12:21 Pulse Oximetry 99 11/27/24 12:21 Oxygen Delivery Room Air 11/27/24 10:36 Medical Decision Making [facility] Narrative Medical decision making narrative: 54-year-old male present to the emergency department for evaluation for multiple complaints. Patient is currently afebrile with no leukocytosis hemoglobin 11.5. Patient had negative serial troponins a negative serial EKGs. INR is 1.1. Patient has no acute abnormalities on his CMP with normal T bili AST ALT alk- phos. Lipase is also normal. Patient was negative for influenza RSV and for COVID. Patient was complaining of increased head pressure and sinus pressure and patient's head CT was negative for acute intracranial abnormality. Chest x- ray shows no acute cardiopulmonary abnormality. Patient was updated results of his workup. Patient was advised to take Tylenol for pain control. Patient was provided a refill on his prescription for omeprazole and patient was strongly encouraged follow-up with GI. Patient was requesting to be discharged home. Patient was well-appearing at time of discharge. Differential Diagnosis Differential Diagnosis: COVID, RSV, influenza, ACS, migraine, sinusitis Vital Signs Vital Signs: Vital Signs Temperature 98.4 F 11/27/24 10:36 Pulse Rate 68 11/27/24 10:36 Respiratory Rate 18 11/27/24 10:36 Blood Pressure 162/85 H 11/27/24 10:36 Pulse Oximetry 100 11/27/24 10:36 Oxygen Delivery Room Air 11/27/24 10:36 Temperature 97.7 F 11/27/24 12:21 Pulse Rate 63 11/27/24 12:21 Respiratory Rate 18 11/27/24 12:21 Blood Pressure 152/98 H 11/27/24 12:21 Pulse Oximetry 99 11/27/24 12:21 Oxygen Delivery Room Air 11/27/24 10:36 Lab Data Lab results reviewed: Yes I reviewed the patient's lab results. 11/27/24 11:13 11/27/24 11:13 Labs: Lab Results 11/27/24 11/27/24 11/27/24 Range/Units 11:13 15:46 16:27 WBC 6.3 (4.5-10.0) K/mm3 RBC 5.74 (4.6-6.20) M/mm3 Hgb 11.5 L (14.0-18.0) g/dL Hct 38.9 L (42.0-52.0) % MCV 67.8 L (80-100) fl MCH 20.0 L (26-34) pg MCHC 29.6 L (32-36) g/dl RDW 18.9 H (11.5-14.5) % Plt Count 208 (150-375) k/mm3 MPV 9.0 (7.4-10.4) fl Immature Gran % (Auto) 0.5 (0-0.5) % Neut % (Auto) 62.4 (45.5-73.1) % Lymph % (Auto) 28.0 (18.3-44.2) % Sullivan % (Auto) 7.2 (2.6-8.5) % Eos % (Auto) 1.4 (0-4.4) % Baso % (Auto) 0.5 (0.2-1.2) % Lymph # (Auto) 1.76 (0.9-3.2) K/mm3 Sullivan # (Auto) 0.5 (0.1-0.6) K/mm3 Eos # (Auto) 0.1 (0-0.3) K/mm3 Baso # (Auto) 0.0 (0.0-0.1) K/mm3 Abs Immat Gran (auto) 0.03 (0.00-0.031) K/mm3 Absolute Neuts (auto) 3.9 (1.3-6.7) K/mm3 Absolute Nucleated RBC 0.000 (0.0-0.012) K/mm3 Band Neutrophils % Not Reportable Nucleated RBC % 0.0 (0.0-0.2) % Platelet Estimate Adequate (Adequate) Hypochromasia 1+ Microcytosis 1+ (NORMAL) Schistocytes None seen PT 13.2 (11.1-14.7) Seconds INR 1.0 APTT 29.0 (22.3-36.8) Seconds Sodium 141 (137-145) mmol/L Potassium 3.5 (3.4-5.0) mmol/L Chloride 102 (98-107) mmol/L Carbon Dioxide 30 (22-30) mmol/L Anion Gap 9 (4-12) mmol/L BUN 15 (9-20) mg/dL Creatinine 0.74 (0.7-1.3) mg/dL Estim Creat Clear Calc 117 ml/min Estimated GFR > 60 (59 - ) Glucose 125 H (65-110) mg/dL Calcium 9.3 (8.4-10.2) mg/dL Total Bilirubin 1.4 H (0.2-1.3) mg/dL AST 23 (17-59) U/L ALT 28 (6-50) U/L Alkaline Phosphatase 70 (38-126) U/L Troponin I < 0.012 < 0.012 (0.000-0.034) ng/mL Total Protein 8.0 (6.3-8.2) g/dL Albumin 4.6 (3.5-5.1) g/dL Lipase 142 (23-300) U/L Influenza A (RT-PCR) Negative (Negative) Influenza B (RT-PCR) Negative (Negative) RSV (RT-PCR) Negative (Negative) SARS-CoV-2 RNA (RT-PCR) Negative (Negative) Imaging Data Radiologist's impression: Impressions Chest X-Ray 11/27/24 12:12 IMPRESSION: No acute cardiopulmonary pathology. Head CT 11/27/24 15:52 IMPRESSION: 1. No acute intracranial process. Discharge Plan Discharge Clinical Impression: Sinus pressure, Gastritis Patient Disposition: Home, Self-Care Condition: Stable Instructions: Antibiotic Form Additional Instructions: Continue taking your omeprazole as directed. Flexeril as needed for muscle spasm. Tylenol as needed for pain control. You should have close follow-up with GI. If you have any worsening symptoms then please call or return to the emergency department. Patient Language: Australian Prescriptions: New omeprazole 20 mg capsule,delayed release(DR/EC) 40 mg PO DAILY 14 Days Qty: 28 0RF cyclobenzaprine 10 mg tablet 10 mg PO BID PRN (Reason: muscle spasm) Qty: 14 0RF No Action potassium chloride 10 mEq tablet extended release 10 meq PO DAILY omeprazole 40 mg capsule,delayed release(DR/EC) 40 mg PO DAILY atenolol 50 mg tablet 50 mg PO Q24H Patient Comments: PT STATES HE IS NOW TAKING 100MG PO DAULY omeprazole 40 mg capsule,delayed release(DR/EC) 40 mg PO DAILY 30 Days Qty: 30 0RF atenolol 100 mg tablet 100 mg PO DAILY 30 Days Qty: 30 0RF albuterol sulfate 90 mcg/actuation HFA aerosol inhaler 2 puff inhalation Q4-6H PRN (Reason: shortness of breath or wheezing) 30 Days Qty: 8.5 0RF fluticasone propionate [Flonase Allergy Relief] 50 mcg/actuation spray,suspension 1 spray intranasal BID Qty: 16 0RF Rx Instructions: administer into each nostril (DME) Aerochamber Plus Z Stat Spacer See Rx Instructions .Route Qty: 1 0RF Rx Instructions: As directed omeprazole 40 mg capsule,delayed release(DR/EC) 40 mg PO DAILY Qty: 30 0RF atenolol 100 mg tablet 100 mg PO DAILY Qty: 30 0RF omeprazole 40 mg capsule,delayed release(DR/EC) 40 mg PO DAILY Qty: 30 0RF atenolol 100 mg tablet 100 mg PO DAILY Qty: 30 0RF methylprednisolone [Medrol (Vega)] 4 mg tablets,dose pack See Rx Instructions PO .COMPLEX Qty: 21 0RF Rx Instructions: orally per package directions fluticasone propionate [24 Hour Allergy Relief] 50 mcg/actuation spray,suspension 2 spray intranasal DAILY Qty: 16 0RF Rx Instructions: administer into each nostril ferrous sulfate 325 mg (65 mg iron) tablet 325 mg PO DAILY Qty: 90 1RF escitalopram oxalate [Lexapro] 20 mg tablet 20 mg PO DAILY Qty: 30 5RF Follow-up/Referrals: Silas Fisher MD [Physician] - UNKNOWN,DOCTOR [Primary Care Provider] -
--- NOTE | 2024-11-27 17:39 | PC.NURSE ---
1700: Pt speaking in aggressive., threatening manner with RN. Pt upset at his length of stay, states I haven't seen a nurse or doctor since I have been here RN informed pt he has been assessed by Dr. Carter, there has been RN's & techs providing care for him. Pt states Wait till I let the community know you guys let a lady have a stroke in the waiting room and didn't do anything about it RN informed pt that I can not speak to another pts care. Pt continues to bombard RN with c/o of length of stay. RN reviewed all test/care that have been given to pt. RN ask pt what is it he would like the staff to do? Hem continued to c/o wait time. washcloth folder informed
[2024-11-27 17:48] VITALS: BP 165/89; PULSE 70; RESP 18; O2SAT 99
--- OUTSIDE RECORDS SUMMARY | 2024-11-27 18:32 | XMS_ITS | Encounter Summary ---
Author Organization [facility] Health Address [address] [place] [address] Care Team Providers Care Animal Care Technician Name Role Phone Unavailable Primary Care Provider Unavailabl e Reason for Visit * Reason Onset Date Comments FLU 11/27/2019 Encounter Details Date Type Department Care Team (Late st Contact Info) Description 11/27/2019 Telephone [facility] General Internal Medicine [address] [place] [address] Radha Palafox, ANIMAL CARE TECHNICIAN-BOOK RETAILER [address] [facility] 2[address] DIV OF [facility] [place] [id number] FLU Social History Tobacco Use Types Packs/Day [...] CDT Caller transferred to triage line from costume seamstress and call got disconnected. Per costume seamstress caller thinks he has coronavirus Attempted to call back and left vm. documented in this encounter Plan of Treatment Not on file documented as of this encounter Visit Diagnoses Not on filedocumented in this encounter
--- OUTSIDE RECORDS SUMMARY | 2024-11-27 18:32 | XMS_ITS | Encounter Summary ---
Author Organization [employer] Address [address] [place] [address] Care Team Providers Care Warehouse Shipping Clerk Name Role Phone Howard Trinidad MD Primary Care Provider Un available Encounter Details Date Type Department Care Team (Late st Contact Info) Description 07/01/[address] [facility] Support Serv. (Adt Cardiology[facility]) [address] 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
--- OUTSIDE RECORDS SUMMARY | 2024-11-27 18:32 | XMS_ITS | Encounter Summary ---
Author Organization [employer] Address [address] [place] [address] Care Team Providers Care Equipment Specialist Name Role Phone Howard Trinidad MD Primary [...] on file Legal Sex Male 4:57 AM HEEL COMPRESSOR Gender Identity Not on file Sexual Orientation Not on file documented as of this encounter Plan of Treatment Not on file documented as of this encounter Visit Diagnoses Diagnosis Depressive disorder, not elsewhere classified- Primary documented in this encounter Care Teams Equipment Specialist Relationship Specialty Start Date End Date Howard Trinidad MD PCP - General Family Practice 01/25/16 01/26/16 documented as of this encounter
--- OUTSIDE RECORDS SUMMARY | 2024-11-27 18:32 | XMS_ITS | CONTINUITY OF CARE DOCUMENT ---
Author Name christian gonzales Address Unknown Organization [facility] Address [address] [place] [address] [address] [place] [address] Phone [phone] Care Team Providers Care Trust Officer Name Role Phone Emily Garcia MD Unavailable [phone] Emily Garcia MD Unavailable [phone] PROBLEMS Condition Status Date Provider Notes Sleep apnea active Emily Garcia MD Hypertension active Emily Garcia MD Hyperlipidemia active Emily Garcia MD Diabetes, Type 2 active Emily Garcia MD Chest pain active Emily Garcia MD ENCOUNTERS Date Type Provider Location Encounter Diagnosis - In-person encounter Office Visit Emily Garcia MD [place] [facility] Chest painDiabetes, Type 2HyperlipidemiaHyp ertensionSleep apnea [...] High 3 cholesterol, serum 182 mg/dL [employer] [phone]/10/2 3 basophil count, absolute 0.0 x10E3/uL [employer] [...] Estab. 3 platelet count 208 X10E3/UL [employer] [phone]/10/2 3 red blood cell distribution width 17.6 [...] 3.5-5.2 3 sodium, serum 142 mmol/L [employer] [phone]/10/2 3 urea nitrogen/creatinine ratio, serum 10 [employer] [...] Payer name Policy type / Coverage type [place] red democrat ID [employer] MEDICAID (2) Medicaid [id number] ADVANCE DIRECTIVES Name Date DISCUSSED - NO DECISION MADE TREATMENT PLAN Date Name Performer [id number],S, Cholesterol, Total 182 mg/dL 100-199 Triglycerides [H] 205 mg/dL 0-149 HDL Cholesterol [L] 21 mg/dL >39 ! VLDL Cholesterol Aristides 37 mg/dL 5-40 LDL Chol Calc (NIH) [H] 124 mg/dL 0-99 Recommend dieatary modifications, see if triglycerides imrpoves, may need to start fish oil. Emily Garcia MD [id number],S, Emily aiken MD [id number],C, n eeds to get w/u done a pparanetly had a cath done 3 yrs ago at [facility] a nd needs to get new /u will do nuclear sress test and echo July 16, 2021 nuclear was denied by insurance s o he had stress echo done but was suboptimal Emily Garcia MD [id number],C, n eeds sleep study done no recent w/u done Emily Garcia MD [id number],C, Cholesterol, Total 182 mg/dL 100-199 Triglycerides [H] 205 mg/dL 0-149 HDL Cholesterol [L] 21 mg/dL >39 ! VLDL Cholesterol Aristides 37 mg/dL 5-40 LDL Chol Calc (NIH) [H] 124 mg/dL 0-99 Recommend dieatary modifications, see if triglycerides imrpoves, may need to start fish oil. Emily Garcia MD [id number],S, Emily aiken MD [id number],C, n eeds to get w/u done a pparanetly had a cath done 3 yrs ago at [facility] a nd needs to get new /u will do nuclear sress test and echo Emily Garcia MD [id number],C, h as angioedema not able to get amelia July 07, 2021 A 1C was 7.1,needs PCP and endcorine eval Emily Garcia MD [id number],C,n eeds sleep study done no recent w/u done Emily Garcia MD [id number],C,needs blood w ork Emily Garcia MD [id number],S,o n atenolol B P today: 152/80 Emily Garcia MD [id number],C,h as angioedema not able to get amelia Emily Garcia MD [id number],C,n eeds to get w/u done a pparanetly had a cath done 3 yrs ago at [facility] a nd needs to get new /u [...] a cath done 3 yrs ago at [facility] a nd needs to get new /u [...] Aristides 37 mg/dL 5-40 LDL Chol Calc ([facility]) [H] 124 mg/dL 0-99 Recommend dieatary modifications, see if triglycerides imrpoves, may need to start fish oil. Emily Garcia MD Telehealth Emily Garcia MD Telehealth: n eeds to get w/u done a pparanetly had a cath done 3 yrs ago at [facility] a nd needs to get new /u [...] a cath done 3 yrs ago at [facility] a nd needs to get new /u [...]
--- OUTSIDE RECORDS SUMMARY | 2024-11-27 18:32 | XMS_ITS | Encounter Summary ---
Author Organization [facility] Healthcare Address [address] [place] [address] Care Team Providers Care Bicycle Courier Name Role Phone Jagdeep Sanford DO Primary Care Provider [phone] Miscellaneous, Not In File Unavailable Unava ilable Charanjit Sheffield MD Primary Care Provider [phone] Carlos Gamboa MD Primary Care Provid er Unknown, Notinfile Primary Care Provider Unavail able No, Physician Primary Care Provider [phone] Unknown, Notinfile Primary Care Provider Unavail able No, Physician Primary Care Provider [phone] Unknown, Notinfile Primary Care Provider Unavail able Adin Lino MD Primary Care Provider + Unknown, Notinfile Primary Care Provider Unavail able Encounter Details Date Type Department Care Team (Late st Contact Info) Description 11/29/2019 Documentation [facility] Respiratory [address] [place] [address] Herbie Ramsey RRT Social History Tobacco Use [...] on file Legal Sex Male 1:40 AM AEROBICS TEACHER Gender Identity Not on file Sexual [...] COVID: Suspected 10/11/2023 10/11/2023 10/11/2023 5:30 PM AEROBICS TEACHER COVID: Suspected 10/22/2024 10/22/2024 10/22/2024 5:53 PM AEROBICS TEACHER Influenza, adult 10/22/2024 10/22/2024 10/29/2024 3:05 AM AEROBICS TEACHER documented as of this encounter Care Teams Bicycle Courier Relationship Specialty Start Date End Date Jagdeep Sanford DO [address] [place] [id number] PCP - General Family Medicine 11/16/19 01/20/20 Charanjit Sheffield MD PCP - General 01/21/20 09/29/20 Carlos Gamboa MD [address] [place] [id number] PCP - General Family Medicine 09/30/20 05/07/21 Unknown, Notinfile PCP - General 05/08/21 11/26/21 No, Physician PCP - General 11/27/21 01/13/23 Unknown, Notinfile PCP - General 01/14/23 01/17/24 No, Physician PCP - General 01/18/24 04/21/24 Unknown, Notinfile PCP - General 04/22/24 07/30/24 Adin Lino MD [address] [place] [id number] PCP - General Internal Medicine 07/31/24 07/31/24 Unknown, Notinfile PCP - General 08/01/24 Miscellaneous, Not In File 11/16/19 documented as of this encounter
--- OUTSIDE RECORDS SUMMARY | 2024-11-27 18:32 | XMS_ITS | Encounter Summary ---
Author Organization [employer] Address [address] [place] [address] Care Team Providers Care Bell Spinner Name Role Phone Howard Trinidad MD Primary Care Provider Un available Encounter Details Date Type Department Care Team (Late st Contact Info) Description 03/02/2005 Outpatient Historical [facility] Support Serv. ([facility]iology[facility]) [address] [place] [address] Vignesh Gurrola MD NO ADDRESS ON FILE Social History Tobacco Use Types Packs/Day Years Used Date Smoking Tobacco: Never Assessed Sex and Gender Information Value Date Recorded Sex Assigned at Not on file Legal Sex Male 4:57 AM LOSS PREVENTION COORDINATOR Gender Identity Not on file Sexual Orientation Not on file documented as of this encounter Plan of Treatment Not on file documented as of this encounter Visit Diagnoses Not on filedocumented in this encounter Care Teams Bell Spinner Relationship Specialty Start Date End Date Howard Trinidad MD PCP - General Family Practice 01/25/16 01/26/16 documented as of this encounter
--- OUTSIDE RECORDS SUMMARY | 2024-11-27 18:32 | XMS_ITS | Encounter Summary ---
Author Organization [facility] Health Address [address] [place] [address] Care Team Providers Care Director Of Public Works Name Role Phone Unavailable Primary Care Provider Unavailabl e Reason for Visit * Reason Onset Date Comments Erroneous encounter-disregard 10/20/2019 Encounter Details Date Type Department Care Team (Late st Contact Info) Description 10/20/2019 Telephone [facility] General Internal Medicine [address] [email or web address] [address] [place] [address] Radha Palafox, INSPECTOR WIRE PRODUCTS-REAL ESTATE UTILIZATION OFFICER [address] OF [facility] [place] [id number] Erroneous encounter-disregard Social History Tobacco Use Types [...] Mendes - 10/20/2019 10:46 AM CST err SITION MGR RN documented in this encounter Plan of Treatment Not on file documented as of this encounter Visit Diagnoses Not on filedocumented in this encounter
--- OUTSIDE RECORDS SUMMARY | 2024-11-27 18:32 | XMS_ITS | Clinical Summary ---
Author Organization [facility] Address [address] [place] [address] Care Team Providers Care Temporary Receptionist Name Role Phone None, Provider MD Primary [...] 68 05/22/2024 1:38 PM CDT Temperature 36.1 C (97 F) 05/22/2024 1:38 PM CDT Respiratory Rate 16 [...] Vaccines (1 of 2) 02/09/2022 COVID-19 Vaccine ( - 2023-2 5 season) 2024 Influenza Adult (#1) 2024 Hepatitis C Completed 10/20/2019 Meningococcal B Vaccine Aged Out No l onger eligible based on patient's age to complete this topic Meningococcal Vaccine Aged Out No mode jeremiah [...] patient's age to complete this topic [place] [address] Care Teams Temporary Receptionist Relationship Specialty Start Date End Date None, Provider, PCP - General 12/31/19
--- OUTSIDE RECORDS SUMMARY | 2024-11-27 18:32 | XMS_ITS | Encounter Summary ---
Author Organization [facility] Address [address] [place] [address] Care Team Providers Care Repair Specialist Name Role Phone Unavailable Primary Care Provider Unavailabl e Reason for Visit * Reason Onset Date Comments Med Question 10/18/2019 Med Question 10/19/2019 Order 10/20/2019 XRAY Follow-up 10/20/2019 Encounter Details Date Type Department Care Team ([facility] st Contact Info) Description 10/18/2019 Telephone [facility] [address] [place] [address] Radha Palafox, FUEL SYSTEM MAINTENANCE SUPERVISOR-ACCOUNTANT SYSTEMS [address] OF [facility] [place] [address] Med Question; Med Question; Order (XRAY); Follow-up [...] Remedios Catalan LPN - 10/20/2019 2:05 PM SALES ACCOUNT LEADER Pt came to 207 window. Pt is demanding xrays be done before his appointment. Pt is demanding that the nurse call me about this. I came early to have this done. I thought you people were here to helppatients. I want this done before the appointment because I want the results now. S ACCOUNT LEADER * Telephone Encounter - Lynne Mendes - 10/20/2019 1:47 PM CST Upon chart review, no new update message from STOCKKEEPER Petzchen or xray order in system at this time. Outbound to pt to inform [place] called pt to inform of above update and pt verbalized understanding. Pt reports he is at [facility] nowand is going to go to office to see if can get an order for an Xray and then go to the lab to get labs drawn. No further questions or concerns at this time. CB# [phone] (home) Routed to provider for further review Routed to [facility] Nurse Communication for further review S ACCOUNT LEADER * Telephone Encounter - Lynne Mendes - 10/20/2019 12:35 PM CST Upon chart review, [place] checking for update from STOCKKEEPER Petzchen to c/b pt. As of this time, no new update from [facility]KEE[facility] Petrebekachen. Will continue to monitor for update. S ACCOUNT LEADER * Telephone Encounter - Lynne Mendes - 10/20/2019 10:54 AM CST Outbound to [facility] Venus - unable to reach Upon chart review, Liz Catalan forwarded message to VENTURA Palafox for review. S ACCOUNT LEADER * Telephone Encounter - Lynne Mendes - 10/20/2019 9:54 AM CST Pt calling in b/c he is coming in to office today for OV w/ STOCKKEEPER Petdionicio @ 3:20pm and requesting an xray for kidney/left sided pain. Pt reports forgot to ask STOCKKEEPER Vivienne yesterday during phone conversation for xray [...] than 20min w/ the doctor . CB# [phone] (home) Routed to provider for further review HIGH PRIORITY S ACCOUNT LEADER * Telephone Encounter - Radha Palafox APRN-CNP - 10/19/2019 1:18 PM SALES ACCOUNT LEADER Phone call--multiple vague complaints of not feeling [...] he will keep appt tomorrow. MELISA Diaz S ACCOUNT LEADER * Telephone Encounter - Jovan Grewal - [...] with the provider today, call back number [phone] provided Message routed to provider S ACCOUNT LEADER * Telephone Encounter - Mallory Flores RN [...] like this he had to take xanax. [phone] S ACCOUNT LEADER documented in this encounter Plan of Treatment Not on file documented as of this encounter Visit Diagnoses Not on filedocumented in this encounter
--- OUTSIDE RECORDS SUMMARY | 2024-11-27 18:32 | XMS_ITS | Encounter Summary ---
Author Organization [employer] Address [address] [place] [address] Care Team Providers Care Freight Brake Operator Name Role Phone Howard Trinidad MD Primary Care Provider Un available Encounter Details Date Type Department Care Team (Late st Contact Info) Description 07/11/2008 Outpatient Historical [facility] Er, Authorized P NO ADDRESS ON FILE Ryland Virgen MD [address] [place] [address] Social History Tobacco Use Types Packs/Day Years Used Date Smoking Tobacco: Never Assessed Sex and Gender Information Value Date Recorded Sex Assigned at Not on file Legal Sex Male 4:57 AM FUDGER Gender Identity Not on file Sexual Orientation Not on file documented as of this encounter Plan of Treatment Not on file documented as of this encounter Visit Diagnoses Not on filedocumented in this encounter Care Teams Freight Brake Operator Relationship Specialty Start Date End Date Howard Trinidad MD PCP - General Family Practice 01/25/16 01/26/16 documented as of this encounter
--- OUTSIDE RECORDS SUMMARY | 2024-11-27 18:32 | XMS_ITS | Encounter Summary ---
Author Organization [email or web address] Address [address] [place] [address] Care Team Providers Care Presbyterian Clergy Name Role Phone Howard Trinidad MD Primary Care Provider Un available Encounter Details Date Type Department Care Team (Late st Contact Info) Description 04/27/2009 Outpatient Historical [facility], Authorized P NO ADDRESS ON FILE Balta Sahu MD [address] [place] [address] [place] [address] Edin Marcum [place] [facility] [place] [address] Social History Tobacco Use Types Packs/Day Years Used Date Smoking Tobacco: Never Assessed Sex and Gender Information Value Date Recorded Sex Assigned at Not on file Legal Sex Male 4:57 AM MOBILE DESIGNER Gender Identity Not on file Sexual [...] AM CDT Narrative 04/27/2009 8:09 AM CDT [address] [address] [place], [place] [address] Admit Date: 04/27/2009 CARLOS KELLY Sex: M Admit Prov: BALTA SAHU Date: 1970 Primary Care Prov: CMRN: [id number] [facility] [address] [place] [address] IMAGING SERVICES Ordering Prov: N/A Accession Number: [id number] Interpretation PORTABLE AP CHEST, 04/27/2009 INDICATION: Chest pain. FINDINGS: The heart and mediastinum are normal. There is no infiltrate, contusion, pneumothorax or pleural fluid. The visualized bony thorax is normal. IMPRESSION: Normal AP chest. . Dictated by: LEANDER GORDON 04/27/2009 07:51 Electronically signed by: LEANDER GORDON 04/27/2009 08:07 Transcribed: 04/27/2009 07:56 SMM Procedure Note Leander Gordon - 04/27/2009 [address] [address] [address] [place], [place] [address] Admit Date: 04/27/2009 CARLOS KELLY Sex: M Admit Prov: BALTA SAHU Date: 1970 Primary Care Prov: CMRN: [id number] [facility] [address] [place] [address] IMAGING SERVICES Ordering Prov: N/A Interpretation PORTABLE AP CHEST, 04/27/2009 INDICATION: Chest pain. FINDINGS: The heart and mediastinum are normal. There is no infiltrate,contusion, pneumothorax or pleural fluid. The visualized bony thorax isnormal. IMPRESSION: Normal AP chest. . Dictated by: LEANDER GORDON 04/27/2009 07:51 Electronically signed by: LEANDER GORDON 04/27/2009 08:07 Transcribed: 04/27/2009 07:56 SMM us Edin Marcum MD DIAGNOSTIC IMAGING ORDERABLES Fi nal Result * (ABNORMAL) CBC WITH DIFFERENTIAL (04/27/2009 12:08 AM CDT) MCH 27.8 27.2 - 32.[address] [facility] MPV 9.7 9.3 - 12.[address] [facility] HEMATOCRIT 42.4 40.0 - 48.0 % [facility] RDW-STDEV 41.9 37.1 - 48.[address] [facility] RBC 5.29 4.50 - 5.40 M/uL [facility] MCHC 34.7 31.5 - 35.5 % [facility] MCV 80.2(L) 82.0 - 99.[address] [facility] PLATELETS 187 140 - 350 K/uL [facility] HEMOGLOBIN 14.7 13.6 - 16.5 g/dL [facility] RDW 14.7(H) 11.5 - 14.5 % [facility] WBC 7.2 4.0 - 9.8 K/uL [facility] BASOPHILS 0 0 - 2 % [facility] BASOPHILS ABSOLUTE 0.02 0.00 - 0.20 K/uL [facility] MONOCYTES 8 3 - 13 % [facility] MONOCYTE ABSOLUTE 0.56 0.10 - 1.30 K/uL [facility] NEUTROPHILS 56 45 - 70 % [facility] NEUTROPHIL ABSOLUTE 4.00 1.90 - 7.00 K/uL [facility] EOSINOPHILS 2 0 - 7 % [facility] EOSINOPHIL ABSOLUTE 0.16 0.00 - 0.70 K/uL [facility] LYMPHOCYTES 34 16 - 45 % [facility] LYMPHOCYTE ABSOLUTE 2.43 0.70 - 4.50 K/uL [facility] Blood specimen (specimen) 04/27/2009 12:08 AM CDT 04/27/2009 12:13 AM CDT Edin Macrum MD HEMATOLOGY ORDERABLES Edited Performing Organization Address [facility] Co de Phone Number [facility] CLIA# [id number] [address] [place] [address] * CARDIAC ENZYMES (04/27/2009 12:08 AM CDT) [facility] TROPONIN T <0.01 <=0.03 ng/mL [facility] TROPONIN T INTERP Negative [facility] Blood specimen (specimen) 04/27/2009 12:08 AM CDT 04/27/2009 12:13 AM CDT Edin Marcum MD CHEMISTRY ORDERABLES Edited Performing Organization Address [facility] de Phone Number [facility] CLIA# [id number] [address] [place] [address] * (ABNORMAL) COMPREHENSIVE METABOLIC PANEL (04/27/2009 12:08 AM CDT) CREATININE 0.92 0.67 - 1.17 mg/dL [facility] ALT 130(H) 0 - 41 U/L [facility] SODIUM 141 135 - 145 mmol/L [facility] ALKALINE PHOSPHATASE 71 40 - 129 U/L [facility] CO2 32(H) 22 - 30 mmol/L [facility] BILIRUBIN TOTAL 1.2(H) 0.2 - 1.0 mg/dL [facility] POTASSIUM 3.7 3.5 - 4.9 mmol/L [facility] TOTAL PROTEIN 8.3 6.3 - 8.6 g/dL [facility] GLUCOSE 81 65 - 99 mg/dL [facility] AST 118(H) 12 - 38 U/L [facility] BUN 10 6 - 20 mg/dL [facility] CALCIUM 9.7 8.6 - 10.2 mg/dL [facility] ALBUMIN 4.6 3.4 - 4.8 g/dL [facility] CHLORIDE 101 96 - 108 mmol/L [facility] GFR, >60 >=60 mL/min/1. [address] [facility] GFR >60 >=60 mL/min/1. [address] [facility] Comment: Modification of Diet in Renal Disease (MDRD) study formula. Estimated GFR rate interpretative information for both Americans and non- Americans is available on the [facility] Intranet at: [email or web address] Select: Lab Policies and Procedures Select: Reference Ranges - GFR Blood specimen (specimen) 04/27/2009 12:08 AM CDT 04/27/2009 12:13 AM CDT us Edin Marcum MD CHEMISTRY ORDERABLES Edited [facility] CLIA# [id number] [address] [place] [address] documented in this encounter Visit Diagnoses Not on filedocumented in this encounter Care Teams Presbyterian Clergy Relationship Specialty Start Date End Date Howard Trinidad MD PCP - General Family Practice 01/25/16 01/26/16 documented as of this encounter
--- OUTSIDE RECORDS SUMMARY | 2024-11-27 18:32 | XMS_ITS | Encounter Summary ---
Author Organization [facility] Address [address] [facility] [place] [address] Care Team Providers Care Interface Developer Name Role Phone Unavailable Primary Care Provider Unavailabl e Reason for Visit * Reason Onset Date Comments Nausea 10/02/2019 Cramps 10/02/2019 Pain Abdominal 10/02/2019 Encounter Details Date Type Department Care Team (Late st Contact Info) Description 10/02/2019 Telephone [facility] [address] [place] [address] Radha Palafox, DIRECTOR OF TEACHING AND LEARNING-ASSISTANT TRACK COACH [address] OF [facility] [place] [address] Nausea; Cramps; Pain Abdominal Social History Tobacco [...] no UTI. Pt requesting GIM office call [facility], [phone] for ED report for VENTURA Palafox to review. MO recommended pt call ED and request medical records to be faxed to [facility] and pt raised voice w/ increased agitation at [place] stating he had no time and would [...] for c/b to discuss sx further. CB# [phone] Routed to provider for further review F DEVELOPMENT COORDINATOR RN documented in this encounter Plan of Treatment Not on file documented as of this encounter Visit Diagnoses Not on filedocumented in this encounter
--- OUTSIDE RECORDS SUMMARY | 2024-11-27 18:32 | XMS_ITS | Clinical Summary ---
Author Organization [facility] Administrative Offices Address [address] [place] [address] Care Team Providers Care Casket Assembler Name Role Phone Unavailable Primary Care [...] Other (See Comments) 06/11/2016 Panic attack Medications albuterol 90 mcg/Actuation HFA inhaler Take 2 Puffs by inhalation every 6 hours as needed for Shortness of Breath. Active atenolol (TENORMIN) 100 mg tablet Take 0.5 Tablet (50 mg) by mouth 2 times daily. 10 Tablet 0 6 Active Additional Information Patient taking differently: 100 mgOralDAILY, Reported on 12/05/2015 meclizine (ANTIVERT) 25 mg tabletIndications :Diabetes mellitus type 2, controlled, without complications (CMS/HCC),Sleep apnea, unspecified sleep apnea type,Benign hypertension Take 25 mg by mouth 2 times daily as needed for Dizziness. Active promethazine (PHENERGAN) 25 mg tablet Take 1 Tablet (25 mg) by mouth every 6 hours as needed for Nausea. 30 Tablet None 6 Active fluticasone (FLONASE) 50 mcg/spray [place], Suspension Administer 2 Sprays in each nostril daily. 16 Gram 6 Active ibuprofen (MOTRIN) 600 mg tablet Take 1 Tablet (600 mg) by mouth every 6 hours as needed for Pain, Mild. 20 Tablet None 7 Active omeprazole (PriLOSEC) 40 mg Capsule, Delayed [...] on file Legal Sex Male 4:57 AM INSPECTOR ELEVATORS Gender Identity Not on file Sexual Orientation Not on file Occupation Industry Job Start Date Job End Date Not on file Not on file Not on file Not on file Not on file Not on file Not on file Not on file Last Filed Vital Signs Vital Sign Reading Time Taken Comments Blood Pressure 152/94 11/18/2019 7:07 AM INSPECTOR ELEVATORS Pulse 66 11/18/2019 7:07 AM INSPECTOR ELEVATORS Temperature 36.7 C (98.1 F) 11/18/2019 5:34 AM INSPECTOR ELEVATORS Respiratory Rate 18 11/18/2019 7:07 AM INSPECTOR ELEVATORS Oxygen Saturation 98% 11/18/2019 7:07 AM INSPECTOR ELEVATORS Inhaled Oxygen Concentration - - Weight 120.2 kg (265 lb) 11/18/2019 5:34 AM INSPECTOR ELEVATORS Height 188 cm (6' 2 ) 11/18/2019 5:34 AM INSPECTOR ELEVATORS Body Mass Index 34.02 11/18/2019 5:34 AM INSPECTOR ELEVATORS Plan of Treatment Health Maintenance Due Date Last Done Comments DIABETES ANNUAL RETINAL EXAM 02/09/1990 DIABETES MICROALBUMIN [...] 5:25 PM CDT [facility] [employer] [facility] EST. AVG GLUCOSE, A1C 140 mg/dL 07/02/2015 5:25 PM CDT [facility] Blood Venipuncture - Floor Collect / Unknown 07/02/2015 2:10 AM CDT 07/02/2015 2:11 AM CDT Narrative [facility] - 07/02/2015 5:25 PM CDT Based on the ADAG study equation. us Iwona Arteaga APN CHEMISTRY ORDERABLES Final R esult [facility] CLIA# [id number] [address] [place] [address] from Last 3 Months or Most Recently Relevant to Health Maintenance Insurance MEDICAID Advance Directives For more information, please contact: [phone] * Full Code (Latest Code Status on File) Date Activated Date Inactivated Comments 07/02/2015 8:36 AM 07/02/2015 8:02 PM * Full Code Date Activated Date Inactivated Comments 08/28/2014 2:37 PM 08/28/2014 5:13 PM
--- OUTSIDE RECORDS SUMMARY | 2024-11-27 18:32 | XMS_ITS | Encounter Summary ---
Author Organization [facility] Address [address] [place] [address] Care Team Providers Care Ground Service Equipment Mechanic Name Role Phone Howard Trinidad MD Primary [...] on file Legal Sex Male 4:57 AM TAPING SUPERVISOR Gender Identity Not on file Sexual Orientation Not on file documented as of this encounter Plan of Treatment Not on file documented as of this encounter Visit Diagnoses Diagnosis Unspecified sinusitis (chronic)- Primary documented in this encounter Care Teams Ground Service Equipment Mechanic Relationship Specialty Start Date End Date Howard Trinidad MD PCP - General Family Practice 01/25/16 01/26/16 documented as of this encounter
--- OUTSIDE RECORDS SUMMARY | 2024-11-27 18:32 | XMS_ITS | Continuity of Care Document ---
Author Organization [facility] Address [address] [place] [address] Phone Care Team Providers Care Diver Helper Name Role Phone Maurizio Nelson MD Unavailable Unavailable Advance Directives Directive Yes / No Effective Date File Name No Information Encounters Encounter Description Practice Location Reason(s) For Visit Diagnoses Date Provider Providers Copied on Encounter [facility], [address] [facility] [place], [id number], [place] tel:[phone] [facility] No Information Omar Steven. [address] [employer] [facility] [place], [id number], [place]. tel:[phone] Family History Family Member Type Diagnosis Age At Onset No Information Payers Payer name Insurance type Covered libertarian ID Authoriza tion(s) No Information Social History [...]
--- OUTSIDE RECORDS SUMMARY | 2024-11-27 18:32 | XMS_ITS | Encounter Summary ---
Author Organization [employer] Address [address] [place] [address] Care Team Providers Care Chiropractic Assistant Name Role Phone Howard Trinidad MD Primary Care Provider Un available Encounter Details Date Type Department Care Team (Late st Contact Info) Description 11/22/2007 Outpatient Historical [facility], Authorized P NO ADDRESS ON FILE Arie Justice MD [address] [place] [address] [place] [address] Social History Tobacco Use Types Packs/Day Years Used Date Smoking Tobacco: Never Assessed Sex and Gender Information Value Date Recorded Sex Assigned at Not on file Legal Sex Male 4:57 AM SALES AND MARKETING REPRESENTATIVE Gender Identity Not on file Sexual Orientation Not on file documented as of this encounter Plan of Treatment Not on file documented as of this encounter Visit Diagnoses Not on filedocumented in this encounter Care Teams Chiropractic Assistant Relationship Specialty Start Date End Date Howard Trinidad MD PCP - General Family Practice 01/25/16 01/26/16 documented as of this encounter
--- OUTSIDE RECORDS SUMMARY | 2024-11-27 18:32 | XMS_ITS | Encounter Summary ---
Author Organization [employer] Address [address] [place] [address] Care Team Providers Care Sales Representative Jewelry Name Role Phone Howard Trinidad MD Primary [...] on file Legal Sex Male 4:57 AM NURSE CASE MANAGEMENT Gender Identity Not on file Sexual Orientation Not on file documented as of this encounter Plan of Treatment Not on file documented as of this encounter Visit Diagnoses Diagnosis Pain in limb- Primary documented in this encounter Care Teams Sales Representative Jewelry Relationship Specialty Start Date End Date Howard Trinidad MD PCP - General Family Practice 01/25/16 01/26/16 documented as of this encounter
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
--- OUTSIDE RECORDS SUMMARY | 2024-11-27 18:32 | XMS_ITS | Encounter Summary ---
Author Organization [facility] Address [address] [facility] [place] [address] Care Team Providers Care Clinical Aide Name Role Phone Unavailable Primary Care Provider Unavailabl e Reason for Visit * Reason Onset Date Comments Medication Issue 10/24/2019 Encounter Details Date Type Department Care Team (Late st Contact Info) Description 10/24/2019 Telephone [facility] [address] [facility] [address] [place] [address] Radha Palafox APRN-CNP [address] OF [facility] [place] [phone] Medication Issue Social History Tobacco Use Types [...] Radha Palafox APRN-CNP - 10/24/2019 5:44 PM TURKISH RUBBER Called patient. Again talking about his urinary [...] happy with anyone he gets. MELISA Diaz ISH RUBBER * Telephone Encounter - Mallory Flores RN - 10/24/2019 2:47 PM CST Patient calling again today He is complaining of being lightheaded. Please see below message ISH RUBBER * Telephone Encounter - Mallory Flores RN - 10/24/2019 2:27 PM CST Patient calling and he is out xanax and psychiatrist will not refill He wants to speak with you about this [phone] ISH RUBBER documented in this encounter Plan of Treatment Not on file documented as of this encounter Visit Diagnoses Not on filedocumented in this encounter
--- OUTSIDE RECORDS SUMMARY | 2024-11-27 18:32 | XMS_ITS | Encounter Summary ---
Author Organization [employer] Address [address] [place] [address] Care Team Providers Care Manager Of Investigations Name Role Phone Howard Trinidad MD Primary Care Provider Un available Encounter Details Date Type Department Care Team (Late st Contact Info) Description 04/03/2004 Outpatient Historical [facility] Leticia Cotton MD [facility] [place] [address] Er, Authorized P NO ADDRESS ON FILE PANIC DISORDER (Primary Dx) Social History Tobacco Use Types Packs/Day Years Used Date Smoking Tobacco: Never Assessed Sex and Gender Information Value Date Recorded Sex Assigned at Not on file Legal Sex Male 4:57 AM BODY TECHNICIAN Gender Identity Not on file Sexual Orientation Not on file documented as of this encounter Plan of Treatment Not on file documented as of this encounter Visit Diagnoses Diagnosis Panic disorder without agoraphobia- Primary documented in this encounter Care Teams Manager Of Investigations Relationship Specialty Start Date End Date Howard Trinidad MD PCP - General Family Practice 01/25/16 01/26/16 documented as of this encounter
--- OUTSIDE RECORDS SUMMARY | 2024-11-27 18:32 | XMS_ITS | Referral Summary ---
Author Organization [facility] [address] [place] [id number] Care Team Providers Care Cerner Analyst Name Role Phone Miscellaneous, Not In File Unavailable Unava ilable Unknown, Notinfile Primary Care Provider Unavail able Encounters Date Type Department Care Team Description 10/24/2024 Telephone [facility] Gastroenterology at [address] [place] [address] Jd Mayes MD 10/22/2024 6:32 PM [facility] - 10/22/2024 8:[address] [facility] Emergency Department [address] [place] [id number] Influenza A (Primary Dx); Acute otitis media, unspecified otitis media type Discharge Disposition: Discharge to home or self care 10/13/2024 11:47 AM [facility] - 10/13/2024 2:[address] [facility] Emergency Department [address] [place] [id number] Diverticulitis (Primary Dx); UTI symptoms Discharge Disposition: Discharge to home or self care 10/02/2024 4:18 AM MEDICAL OFFICE SECRETARY - 10/02/2024 5:02 AM [facility] Emergency [facility] Emergency Department [address] [place] [address] John Mckeon MD Generalized anxiety disorder (Primary Dx) Discharge Disposition: Discharge to home or self care 10/01/2024 11:06 PM [facility] - 10/02/2024 3:37 AM [facility] Emergency [facility] Emergency Department [address] [address] Discharge Disposition: Left without being seen from Last 3 Months Allergies Active Allergy [...] for wheezing 1 each 09/02/20 22 Active promethazine (PHENERGAN) 25 mg tablet Take [...] by mouth daily 120 tablet 07/20/20 24 Active omeprazole (PriLOSEC) 40 mg capsule Take 1 capsule (40 mg total) by mouth daily 60 capsule 07/20/20 24 025 Active polyethylene glycol (GoLYTELY) 236-22.74-6.74 -5.86 gram solution Two days before your test on 08/15 At 6 pm, drink 2 liters (half) of 1st jug of nulyteMustHaveMenus. Then on the day before your test [...] a day 24 suppository 08/01/20 24 Active ALPRAZolam (XANAX) 2 mg tablet Take 1 tablet (2 mg total) by mouth 3 (three) times a day as needed for anxiety for up to 20 days 60 tablet 10/02/19 25 Active ondansetron (ZOFRAN) 4 mg tablet Take 1 tablet (4 mg total) by mouth every 6 (six) hours 12 tablet 10/13/19 25 Active hyoscyamine (LEVSIN) 0.125 mg tabletIndications :Urinary Incontinence Take 1 tablet (0.125 mg total) by mouth every 4 (four) hours as needed for cramping 30 tablet 10/13/19 25 Active HYDROcodone-aceta minophen (NORCO) 5-325 mg per tabletIndications :Pain Take 1 tablet by mouth every 8 (eight) hours as needed for pain 6 tablet 10/13/19 25 Active albuterol HFA (PROVENTIL HFA,VENTOLIN HFA,PROAIR HFA) 90 mcg/actuation inhaler Inhale 2 puffs every 4 (four) hours as needed for shortness of breath 6.7 g 10/22/19 25 Active amoxicillin-clavu lanate (AUGMENTIN) 875-125 mg per tablet Take 1 tablet by mouth every 12 (twelve) hours 20 tablet 10/22/19 25 Active ondansetron (ZOFRAN) 4 mg tablet Take 1 tablet (4 mg total) by mouth every 6 (six) hours 12 tablet 10/22/19 25 Active predniSONE (DELTASONE) 20 mg tablet Take 2 tablets (40 mg) by mouth daily 8 tablet 10/22/19 25 Active promethazine-DM (PROMETHAZINE-DM) 1.25-3 mg/mL syrup Take 5 mL by mouth 4 (four) times a day as needed for cough 118 mL 10/22/19 25 Active Active Problems Problem Noted Date Diagnosed [...] pain and frequency. -See either PCP or paving contractor to manage diabetes. -I told patient that if he fails this, we may need to look at further testing for penile pain. Patient verbalized understanding. OAB (overactive bladder) 11/09/2020 Assessment & Plan (11/13/2020 6:03 PM MEDICAL OFFICE SECRETARY): -Symptoms are suggestive of OAB. 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 Discussed with patient that I do not feel this pain is in origin. -Patient states he takes Azo regularly for this pain but doesn't feel it always helps. Stricture of sigmoid colon 10/17/2020 Renal calculi 10/17/2020 Assessment & Plan [...] appointment. Assessment & Plan (11/09/2020 5:20 PM MEDICAL OFFICE SECRETARY): -CT showing non-obstructing stones in kidney. Patient [...] abuse 10/17/2020 Xanax use disorder, severe, dependence 0 Assessment & Plan (11/16/2019 4:14 PM MEDICAL OFFICE SECRETARY): Old psychiatrist, Dr Easley, in [place]. Rx'ed [...] 11/16/2019 Assessment & Plan (11/16/2019 4:11 PM MEDICAL OFFICE SECRETARY): Not taking meds as prescribed. Pt asked to leave before A1C could be tested. Severe obesity (BMI 35.0-35.9 with comorbidity) 11/16/2019 Assessment & Plan (11/16/2019 4:14 PM MEDICAL OFFICE SECRETARY): Body mass index is 35.12 kg/m . Unable to res counselor him given that he was escorted [...] (03/12/2017): Scheduled appointment with psychiatric, April 01, [facility] in [place]. 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 Wasn't able to see many doctors in the area because he had been fired. Immunizations Immunization Administration Dates Next Due Td, Unspecified 09/13/2011 [...] making you feel afraid or unsafe? Denies 10/22/2024 Sex and Gender Information Value Date Recorded Sex Assigned at Not on file Legal Sex Male 1:40 AM MEDICAL OFFICE SECRETARY Gender Identity Not on file Sexual Orientation Not on file Last Filed Vital Signs Vital Sign Reading Time Taken Comments Blood Pressure 143/89 10/22/2024 8:25 PM MEDICAL OFFICE SECRETARY Pulse 73 10/22/2024 8:25 PM MEDICAL OFFICE SECRETARY Temperature 37.2 C (99 F) 10/22/2024 4:46 PM MEDICAL OFFICE SECRETARY Respiratory Rate 16 10/22/2024 8:25 PM MEDICAL OFFICE SECRETARY Oxygen Saturation 99% 10/22/2024 8:25 PM MEDICAL OFFICE SECRETARY Inhaled Oxygen Concentration - - Weight 120.1 kg (264 lb 12.4 oz) 10/22/2024 4:46 PM MEDICAL OFFICE SECRETARY Height 188 cm (6' 2 ) 10/22/2024 4:46 PM MEDICAL OFFICE SECRETARY Body Mass Index 33.99 10/22/2024 4:46 PM MEDICAL OFFICE SECRETARY Plan of Treatment Scheduled Procedures Name Priority Associated Diagnoses Date/Ti me COLONOSCOPY Open Access Diverticulitis Procedures Procedure Name Priority Date/Time Associated Diagnosis Comments XR CHEST PA LATERAL 2 VIEWS ED 10/22/2024 5:05 PM MEDICAL OFFICE SECRETARY URINALYSIS, MICROSCOPIC ONLY STAT 10/22/2024 5:01 PM MEDICAL OFFICE SECRETARY URINALYSIS AND REFLEX TO MICROSCOPIC AND CULTURE STAT 10/22/2024 5:01 PM MEDICAL OFFICE SECRETARY INFLUENZA A/B, RSV, AND COVID-19 PCR STAT 10/22/2024 4:59 [address] MEDICAL OFFICE SE[address]ARY [address] ABDOMEN PELVIS WO CONTRAST ED 10/13/2024 12:25 PM MEDICAL OFFICE SECRETARY URINALYSIS, MICROSCOPIC ONLY STAT 10/13/2024 10:13 AM MEDICAL OFFICE SECRETARY URINALYSIS AND REFLEX TO MICROSCOPIC AND CULTURE STAT 10/13/2024 10:13 AM MEDICAL OFFICE SECRETARY EGFR STAT 10/13/2024 10:11 AM MEDICAL OFFICE SECRETARY DIFFERENTIAL AUTO STAT 10/13/2024 10: 11 AM MEDICAL OFFICE SECRETARY LIPASE STAT 10/13/2024 10:11 AM MEDICAL OFFICE SECRETARY COMPREHENSIVE METABOLIC PANEL STAT 10/13/2024 10:11 AM MEDICAL OFFICE SECRETARY CBC WITH AUTO DIFFERENTIAL STAT 10/13/2024 10:11 AM MEDICAL OFFICE SECRETARY ECG 12-LEAD STAT 10/13/2024 10:05 AM MEDICAL OFFICE SECRETARY HEMOGLOBIN A1C Routine 01/22/2020 9:58 AM CDT LIPID PANEL Routine 01/22/2020 9:58 AM CDT COLONOSCOPY REPORT 07/01/2017 from Last 3 Months or Most Recently Relevant to Health Maintenance Results * XR Chest PA Lateral 2 Views (10/22/2024 5:05 PM MEDICAL OFFICE SECRETARY) Anatomical Region Laterality Modality Body, Chest N/A Computed Radiogr aphy 10/22/2024 5:38 PM MEDICAL OFFICE SECRETARY Narrative 10/22/2024 5:38 PM MEDICAL OFFICE SECRETARY EXAM DESCRIPTION: XR CHEST PA LATERAL 2 VIEWS REASON FOR STUDY: pain, Sepsis Presents today with cough and wheezing onset 1 week ago, fever earlier in week. Recent dx UTI, diverticulitis . Presents today with cough and wheezing onset 1 week ago, fever earlier in week. Reports continued burning with urination and increase urgency and frequency. TECHNIQUE: 2 radiographic view(s) of the chest. COMPARISON: None FINDINGS: LUNGS: No focal opacity, pleural effusion, or pneumothorax. HEART/MEDIASTINUM: Cardiac silhouette normal in size. Mediastinal and hilar contours appear normal. LINES/TUBES: None. BONES: No acute osseous abnormality. IMPRESSION: No acute cardiopulmonary abnormality. THIS IS AN ELECTRONICALLY VERIFIED FINAL REPORT 10/22/2024 5:38 PM - Electronically signed by Dave Kat M.D. KT: KT Report ID: [id number] Reading Location: [id number] Procedure Note Dave Kat MD - 10/22/2024 EXAM DESCRIPTION: XR CHEST PA LATERAL 2 VIEWS REASON FOR STUDY: pain, Sepsis Presents today with cough and wheezing onset 1 week ago, fever earlier in week. Recent dx UTI, diverticulitis . Presents today with cough and wheezing onset 1 week ago, fever earlier in week. Reports continuedburning with urination and increase urgency and frequency. TECHNIQUE: 2 radiographic view(s) of the chest. COMPARISON: None FINDINGS: LUNGS: No focal opacity, pleural effusion, or pneumothorax. HEART/MEDIASTINUM: Cardiac silhouette normal in size. Mediastinal andhilar contours appear normal. LINES/TUBES: None. BONES: No acute osseous abnormality. IMPRESSION: No acute cardiopulmonary abnormality. THIS IS AN ELECTRONICALLY VERIFIED FINAL REPORT 10/22/2024 5:38 PM - Electronically signed by Dave Kat M.D. KT: SARTHAK Report ID: [id number] Reading Location: [place] [address] us Jhoana Potts INFORMATION SYSTEMS CONSULTANT IMG XR PROCEDURES Final Resul t * (ABNORMAL) Urinalysis reflex to microscopic and culture Urine, clean voided (10/22/2024 5:01 PM MEDICAL OFFICE SECRETARY) Color, ur Yellow Yellow Comment:Testing performed by : [address] [address] Clarity, ur Clear Clear VAL Comment:Testing performed by : [address] [address] Specific gravity, ur 1.009 1.003 - 1.030 VAL Comment:Testing performed by : [address] [address] pH, urine 6.5 VAL Comment: Interpretive Data U rine pH is affected by diet, medications, systemic acid-base disturbances, and renal tubular function. pH may affect urinary stone formation. For example, urine pH below 6.0 may help reduce the tendency for calcium phosphate stones and pH greater than 6.0 may reduce the tendency for uric acid stone formation. Source: [facility] Current Interpretive Data was last revised on 2017 Testing performed by: [address] [address] Protein, ur ql Trace(A) Negative VAL Comment:Testing performed by : [address], [place]., [address] Glucose, ur ql Negative Negative VAL MULLER Comment:Testing performed by : [address], [place]., [address] Ketones, ur Negative Negative VAL MULLER Comment:Testing performed by : [address], [place]., [address] Bilirubin, ur Negative Negative VAL MULLER Comment:Testing performed by : [address], [place]., [address] Blood, ur Negative Negative VAL Comment:Testing performed by : [address], [place]., [address] Urobilinogen, ur <2.0 <2.0 mg/dL VAL MULLER Comment:Testing performed by : [address], [place]., [address] Nitrite, ur Negative Negative VAL Comment:Testing performed by : [address], [place]., [address] Leukocyte esterase, ur Negative Negative VAL Comment:Testing performed by : [address], [place]., [address] UA reflex comment Reflex to microscopic UA will be performed. VAL MULLER Comment:Testing performed by : [address], [place]., [address] Urine, clean voided 10/22/2024 5:01 PM MEDICAL OFFICE SECRETARY 10/22/2024 5:06 PM MEDICAL OFFICE SECRETARY Jhoana Potts NP LAB MICROBIOLOGY - GENERAL OR DERABLES Final Result VAL MULLER [address] [facility] Department [place] [address] * Urinalysis, microscopic only (10/22/2024 5:01 PM MEDICAL OFFICE SECRETARY) WBC, ur 0-5 0 - 5 /HPF Comment:Testing performed by : [address], [place]., [address] RBC, ur 0-2 0 - 2 /HPF VAL MULLER Comment:Testing performed by : [address] [address] Culture Reflex Comment Reflex conditions for urine culture (WBC >10) not met. VAL Comment:Testing performed by : [address] [address] Urine, clean voided 10/22/2024 5:01 PM MEDICAL OFFICE SECRETARY 10/22/2024 5:06 PM MEDICAL OFFICE SECRETARY Jhoana Potts LAB URINE ORDERABLES Final Re sult VAL [address] [facility] Department [place] [address] * (ABNORMAL) Influenza A/B, RSV, and COVID-19 PCR Nasopharyngeal (10/22/2024 4:59 PM MEDICAL OFFICE SECRETARY) COVID-19 RNA Negative Negative Comment:Testing performed by : [address] [address] Influenza A RNA Positive(A) Negative VAL Comment:Testing performed by : [address] [address] Influenza B RNA Negative Negative VAL Comment:Testing performed by : [address] [address] RSV RNA Negative Negative VAL Comment: Interpretive data: Testing performed by [facility]. This test is performed using the [employer] Xpert Xpress CoV-2/Flu/RSV plus assay. This is a multiplex, real-time reverse transcriptase PCR assay intended for the qualitative detection of nucleic acid from SARS-CoV-2, influenza A, influenza B, and respiratory syncytial virus. This assay has been cleared by the [place] Food and Drug administration. The performance characteristics have been verified by the [facility]. Results must be considered in the clinical context, and a negative result does not rule out infection. Interpretive Data last revised 2023 Testing performed by: [address] [address] Nasopharyngeal 10/22/2024 4: 59 PM MEDICAL OFFICE SECRETARY 10/22/2024 5:05 PM MEDICAL OFFICE SECRETARY Narrative VAL MULLER - 10/22/2024 5:52 PM MEDICAL OFFICE SECRETARY Is the Patient experiencing symptoms consistent with COVID?->Yes Jhoana Potts NP LAB MICROBIOLOGY - GENERAL OR DERABLES Final Result VAL MULLER [address] [facility] Department [place] [address] * CT Abdomen Pelvis WO Contrast (10/13/2024 12:25 PM MEDICAL OFFICE SECRETARY) Anatomical Region Laterality Modality Body N/A Computed Tomogra phy 10/13/2024 12:5 0 PM MEDICAL OFFICE SECRETARY Narrative 10/13/2024 1:08 PM MEDICAL OFFICE SECRETARY EXAM DESCRIPTION: CT ABDOMEN PELVIS WO CONTRAST REASON FOR STUDY: LLQ abdominal pain PT reports LLQ abdominal pain with nausea since Wednesday. Also reports indigestion this morning. TECHNIQUE: CT scan of the abdomen and pelvis performed without intravenous and without oral contrast using helical scanning technique. Reconstructed coronal and sagittal MPR images reviewed. All images stored on PACS. Automated exposure control was used as a dose optimization technique for this examination. COMPARISON: CT abdomen and pelvis 06/23/2024 FINDINGS: The sensitivity for detection of visceral [...] No identified significant cystic or solid masses. Small nonobstructing bilateral renal stones are redemonstrated. No hydronephrosis or hydroureter. Urinary bladder is unremarkable. GI: The distal esophagus and stomach are unremarkable. The appendix is normal. Redemonstrated chronic circumferential wall thickening of the mid to distal descending colon and more extensive wall thickening of the proximal sigmoid, with associated severe luminal narrowing. There is moderate upstream colonic stool. However, there is increased pericolonic inflammatory stranding about the mid sigmoid colon, with a likely inflamed diverticulum on axial image 147). No pericolonic fluid collection. No evidence of niki perforation. PERITONEUM: No ascites or free air. Chronically stable mildly enlarged 1.4 cm peripancreatic lymph node (axial image 59). RETROPERITONEUM: No mass or adenopathy. REPRODUCTIVE: No significant abnormality. VASCULATURE: No abdominal aortic aneurysm. MUSCULOSKELETAL: No significant abnormality. OTHER: Stable bilateral fat containing inguinal hernias. IMPRESSION: 1. Acute uncomplicated diverticulitis involving the mid sigmoid colon. 2. Redemonstrated chronic circumferential wall thickening involving the mid to distal descending colon, with more extensive wall thickening of the proximal sigmoid and an associated stricture. Findings favor benign reactive sequela given the chronicity. Correlation with prior colonoscopy results is recommended. There is moderate upstream colonic stool. 3. Nonobstructing nephrolithiasis. THIS IS AN ELECTRONICALLY VERIFIED FINAL REPORT 10/13/2024 1:08 PM - Electronically signed by Dave Benavides M.D. KR: INDIO Report ID: [id number] Reading Location: [id number] Procedure Note Dave Benavides MD - 10/13/2024 EXAM DESCRIPTION: CT ABDOMEN PELVIS WO CONTRAST REASON FOR STUDY: LLQ abdominal pain PT reports LLQ abdominal pain with nausea since Wednesday. Also reports indigestion this morning. TECHNIQUE: CT scan of the abdomen and pelvis performed without intravenousand without oral contrast using helical scanning technique. Reconstructed coronal and sagittal MPR images reviewed. All images stored on PACS.Automated exposure control was used as a dose optimization technique for this examination. COMPARISON: CT abdomen and pelvis 06/23/2024 FINDINGS: The sensitivity for detection of visceral [...] No identified significant cystic or solid masses. Small nonobstructing bilateral renal stones are redemonstrated. No hydronephrosis or hydroureter. Urinary bladder is unremarkable. GI: The distal esophagus and stomach are unremarkable. The appendix is normal. Redemonstrated chronic circumferential wall thickening of the mid todistal descending colon and more extensive wall thickening of the proximalsigmoid, with associated severe luminal narrowing. There is moderate upstreamcolonic stool. However, there is increased pericolonic inflammatory strandingabout the mid sigmoid colon, with a likely inflamed diverticulum on axial image 147). No pericolonic fluid collection. No evidence of niki perforation. PERITONEUM: No ascites or free air. Chronically stable mildly enlarged1.4 cm peripancreatic lymph node (axial image 59). RETROPERITONEUM: No mass or adenopathy. REPRODUCTIVE: No significant abnormality. VASCULATURE: No abdominal aortic aneurysm. MUSCULOSKELETAL: No significant abnormality. OTHER: Stable bilateral fat containing inguinal hernias. IMPRESSION: 1. Acute uncomplicated diverticulitis involving the mid sigmoid colon. 2. Redemonstrated chronic circumferential wall thickening involving themid to distal descending colon, with more extensive wall thickening of the proximal sigmoid and an associated stricture. Findings favor benignreactive sequela given the chronicity. Correlation with prior colonoscopy resultsis recommended. There is moderate upstream colonic stool. 3. Nonobstructing nephrolithiasis. THIS IS AN ELECTRONICALLY VERIFIED FINAL REPORT 10/13/2024 1:08 PM - Electronically signed by Dave Benavides M.D. KR: INDIO Report ID: [id number] Reading Location: [place] [address] PROCEDURES Final Result * (ABNORMAL) Urinalysis reflex to microscopic and culture Urine (10/13/2024 10:13 AM MEDICAL OFFICE SECRETARY) Color, ur Yellow Yellow Comment:Testing performed by : [address] [address] Clarity, ur Clear Clear VAL MULLER Comment:Testing performed by : [address] [address] Specific gravity, ur 1.032(H) 1.003 - 1.030 VAL MULLER Comment:Testing performed by : [address] [address] pH, urine 5.5 VAL Comment: Interpretive Data U rine pH is affected by diet, medications, systemic acid-base disturbances, and renal tubular function. pH may affect urinary stone formation. For example, urine pH below 6.0 may help reduce the tendency for calcium phosphate stones and pH greater than 6.0 may reduce the tendency for uric acid stone formation. Source: [facility] [employer] Current Interpretive Data was last revised on 2017 Testing performed by: [facility], [address] [place] [address], [place]., [address] Protein, ur ql Trace(A) Negative VAL Comment:Testing performed by : [address] [address] Glucose, ur ql Negative Negative VAL Comment:Testing performed by : [address], [place]., [address] Ketones, ur 1+(A) Negative VAL Comment:Testing performed by : [address] [address] Bilirubin, ur Negative Negative VAL Comment:Testing performed by : [address], [place]., [address] Blood, ur Negative Negative VAL Comment:Testing performed by : [address] [address] Urobilinogen, ur 2.0(A) <2.0 mg/dL VAL Comment:Testing performed by : [address] [address] Nitrite, ur Negative Negative VAL Comment:Testing performed by : [address] [address] Leukocyte esterase, ur 2+(A) Negative VAL Comment:Testing performed by : [address] [address] UA reflex comment Reflex to microscopic UA will be performed. VAL Comment:Testing performed by : [address], [place]., [address] Urine 10/13/2024 10:1 3 AM MEDICAL OFFICE SECRETARY 10/13/2024 10:24 AM MEDICAL OFFICE SECRETARY Miguel Stokes DO LAB MICROBIOLOGY - GENERAL ORDERABLES Final Result Performing Organization Address [facility] de Phone Number VAL [address] [facility] [place] [address] * (ABNORMAL) Urinalysis, microscopic only (10/13/2024 10:13 AM MEDICAL OFFICE SECRETARY) WBC, ur 0-5 0 - 5 /HPF Comment:Testing performed by : [facility], [address] [place] [address]., [address] RBC, ur 0-2 0 - 2 /HPF VAL Comment:Testing performed by : [address] [address] Epithelial cells, squamous, ur 1-5 0 - 5 /HPF VAL Comment:Testing performed by : [address] [address] Mucous, ur Present(A) VAL Comment:Testing performed by : [facility], [address] [place] [address]., [address] Hyaline casts, ur 1-5 0 - 10 /LPF VAL Comment:Testing performed by : [address] [address] Culture Reflex Comment Reflex conditions for urine culture (WBC >10) not met. VAL Comment:Testing performed by : [address] [address] Urine 10/13/2024 10:1 3 AM MEDICAL OFFICE SECRETARY 10/13/2024 10:24 AM MEDICAL OFFICE SECRETARY Miguel Stokes DO LAB URINE ORDERABLES Final Result Performing Organization Address [facility] Co de Phone Number VAL [address] [facility] [place] [address] * eGFR (10/13/2024 10:11 AM MEDICAL OFFICE SECRETARY) eGFR >90 >=60 mL/min/1. 73 m2 Comment: Interpretive Data Reference Interval Normal >/= 90 mL/min/1.73m2 Mildly decreased* 60 - 89 mL/min/1.73m2 Mildly to moderately decreased 45 - 59 mL/min/1.73m2 Moderately to severely decreased 30 - 44 mL/min/1.73m2 Severely decreased 15 - 29 mL/min/1.73m2 Kidney Failure < 15 mL/min/1.73m2 *Relative to young adult level Estimated glomerular [...] was last reviewed 2021. Testing performed by: [address] [address] Blood 10/13/2024 10:1 1 AM MEDICAL OFFICE SECRETARY 10/13/2024 10:24 AM MEDICAL OFFICE SECRETARY Miguel Stokes DO LAB BLOOD ORDERABLES Final Result [facility] [address] [facility] Department [place] [address] * Differential, auto (10/13/2024 10:11 AM MEDICAL OFFICE SECRETARY) Neutrophil abs 3.0 1.5 - 6.5 K/cumm Comment:Testing performed by : [address] [address] Imm gran abs 0.0 0.0 - 0.1 K/cumm VAL Comment:Testing performed by : [address] [address] Lymphocyte abs 1.2 0.8 - 3.3 K/cumm VAL Comment:Testing performed by : [address] [address] Monocyte abs 0.3 0.2 - 0.8 K/cumm VAL Comment:Testing performed by : [address] [address] Eosinophil abs 0.1 0.0 - 0.5 K/cumm [facility] Comment:Testing performed by : [address] [address] Basophil abs 0.0 0.0 - 0.1 K/cumm [facility] Comment:Testing performed by : [address] [address] Neutrophil pct 64.6 % [facility] Comment: Interpretive Data Percent cell count reference ranges are not reported, since discordance with absolute values may lead to misinterpretation of CBC data. Current Interpretive Data was last revised on 2017. Testing performed by: [address] [address] Imm gran pct 0.2 % [facility] Comment: Interpretive Data Percent cell count reference ranges are not reported, since discordance with absolute values may lead to misinterpretation of CBC data. Current Interpretive Data was last revised on 2017. Testing performed by: [address] [address] Lymphocyte pct 25.9 % [facility] Comment: Interpretive Data Percent cell count reference ranges are not reported, since discordance with absolute values may lead to misinterpretation of CBC data. Current Interpretive Data was last revised on 2017. Testing performed by: [address] [address] Monocyte pct 5.9 % [facility] Comment: Interpretive Data Percent cell count reference ranges are not reported, since discordance with absolute values may lead to misinterpretation of CBC data. Current Interpretive Data was last revised on 2017. Testing performed by: [address] [address] Eosinophil pct 2.8 % [facility] Comment: Interpretive Data Percent cell count reference ranges are not reported, since discordance with absolute values may lead to misinterpretation of CBC data. Current Interpretive Data was last revised on 2017. Testing performed by: [address] [address] Basophil pct 0.6 % [facility] Comment: Interpretive Data Percent cell count reference ranges are not reported, since discordance with absolute values may lead to misinterpretation of CBC data. Current Interpretive Data was last revised on 2017. Testing performed by: [address] [address] Blood 10/13/2024 10:1 1 AM MEDICAL OFFICE SECRETARY 10/13/2024 10:24 AM MEDICAL OFFICE SECRETARY Miguel Stokes DO LAB BLOOD ORDERABLES Final Result [facility] [address] [facility] Department [place] [address] * (ABNORMAL) CBC with auto differential (10/13/2024 10:11 AM MEDICAL OFFICE SECRETARY) WBC 4.7 3.8 - 9.9 K/cumm Comment:Testing performed by : [address] [address] Hgb 11.2(L) 13.0 - 17.5 g/dL VAL Comment:Testing performed by : [address] [address] Hct 38.0(L) 38.9 - 50.3 % VAL Comment:Testing performed by : [address] [address] Plt 226 150 - 400 K/cumm VAL Comment:Testing performed by : [address] [address] MPV 8.9(L) 9.1 - 12.3 fL VAL Comment:Testing performed by : [address] [address] RBC 5.59 4.30 - 5.80 M/cumm VAL Comment:Testing performed by : [address] [address] MCV 68.0(L) 81.3 - 96.4 fL VAL Comment:Testing performed by : [address] [address] MCH 20.0(L) 27.1 - 33.3 pg VAL MULLER Comment:Testing performed by : [address] [address] MCHC 29.5(L) 32.3 - 35.7 g/dL VAL [facility]ER Comment:Testing performed by : [address] [address] RDW CV 19.8(H) 11.1 - 14.9 % VAL [facility]ER Comment:Testing performed by : [address] [address] RDW SD 45.5 35.7 - 48.1 fL VAL Comment:Testing performed by : [address] [address] NRBC abs 0.00 0.00 - 0.01 K/cumm VAL Comment:Testing performed by : [address], [address] Blood Venous blood specimen / Unknown 10/13/2024 10:11 AM MEDICAL OFFICE SECRETARY 10/13/2024 10:24 AM MEDICAL OFFICE SECRETARY Miguel Stokes DO LAB BLOOD ORDERABLES Final Result [address] [employer] [place] [address] * Lipase (10/13/2024 10:11 AM MEDICAL OFFICE SECRETARY) Lipase 25 10 - 99 Units/L Comment:Testing performed by : [address], [address] Blood Venous blood specimen / Unknown 10/13/2024 10:11 AM MEDICAL OFFICE SECRETARY 10/13/2024 10:24 AM MEDICAL OFFICE SECRETARY Miguel Stokes DO LAB BLOOD ORDERABLES Final Result [address] [employer] [place] [address] * Comprehensive metabolic panel (10/13/2024 10:11 AM MEDICAL OFFICE SECRETARY) Sodium 143 135 - 145 mmol/L Comment:Testing performed by : [address] [address] Potassium, pl 3.6 3.3 - 4.9 mmol/L [facility] Comment:Testing performed by : [address], [place]., [address] Chloride 102 97 - 110 mmol/L [facility] Comment:Testing performed by : [address], [place]., [address] CO2 27 22 - 32 mmol/L [facility] Comment:Testing performed by : [address], [place]., [address] Anion gap 14 2 - 15 mmol/L [facility] Comment:Testing performed by : [address], [place]., [address] BUN 11 6 - 25 mg/dL [facility] Comment:Testing performed by : [address], [place]., [address] Creatinine 0.90 0.80 - 1.30 mg/dL [facility] Comment:Testing performed by : [address] [address] Glucose 99 70 - 199 mg/dL [facility] Comment: Interpretive Data Fasting glucose >/= 126 mg/dl is diagnostic for diabetes. Fasting is defined as no caloric intake [...] was last revised 2022. Testing performed by: [address] [address] Calcium 9.6 8.5 - 10.3 mg/dL [facility] Comment:Testing performed by : [address] [address] Bilirubin, total 0.8 0.1 - 1.2 mg/dL [facility] Comment:Testing performed by : [address] [address] Protein, pl 7.9 6.5 - 8.5 g/dL [facility] Comment:Testing performed by : [facility], [address] [place] [address]., [address] Albumin 4.3 3.5 - 5.0 g/dL VAL Comment:Testing performed by : [address] [address] Alk phos 62 40 - 130 Units/L VAL Comment:Testing performed by : [address] [address] ALT 17 7 - 55 Units/L VAL Comment:Testing performed by : [address] [address] AST 20 10 - 50 Units/L VAL Comment:Testing performed by : [address] [address] Blood 10/13/2024 10:1 1 AM MEDICAL OFFICE SECRETARY 10/13/2024 10:24 AM MEDICAL OFFICE SECRETARY Miguel Stokes DO LAB BLOOD ORDERABLES Final Result VAL [address] [facility] Department [place] [address] * ECG 12 lead (10/13/2024 10:05 AM MEDICAL OFFICE SECRETARY) Ventricular Rate EKG/Min 60 BPM [facility] Atrial Rate 60 BPM [facility] WA-Interval (MSEC) 154 ms [facility] QRS-Interval (MSEC) 94 ms [facility] QT-Interval (MSEC) 414 ms [facility] QTc 414 ms [facility] P [place] 9 degrees [facility] R [place] 30 degrees [facility] T [place] 16 degrees [facility] Diagnosis Normal sinus rhythm Normal ECG When compared with ECG of 10-NOV-2022 18:29, Nonspecific T wave abnormality, improved in lateral leads Confirmed by MYLA BARKER M.D. ([id number]) on 10/16/2024 8:25:56 PM [facility] 10/13/2024 10:0 5 AM MEDICAL OFFICE SECRETARY 10/16/2024 8:25 PM MEDICAL OFFICE SECRETARY us Miguel Stokes DO ECG ORDERABLES Final Resul t [facility] * (ABNORMAL) Hemoglobin A1c (01/22/2020 9:58 AM CDT) Hemoglobin A1c % 6.2(H) 4.0 - 5.6 % [facility] Comment: ADA 2016 GUIDELINES: Initial Diagnostic Criteria HbA1c Result: Interpretation: <5.7% Normal 5.7-6.4% At risk for diabetes mellitus >=6.5% Consistent with diabetes mellitus Diabetes monitoring Target value (ADA Recommended) <7% 01/22/2020 9:58 AM CDT 01/22/2020 10:14 AM CDT Narrative Resulting Agency Comment CLI us Charanjit Sheffield MD LAB BLOOD ORDERABLES Final Result Performing Organization Address City/[facility]/ZIP Co de Phone Number [address] [phone] * (ABNORMAL) Lipid panel (01/22/2020 9:58 AM CDT) Triglycerides 173(H) 0 - 149 mg/dL [facility] Comment: National Lipid Association/NCEP Guidelines: Normal < 150 mg/dL Borderline high 150-199 mg/dL High 200-499 mg/dL Very High >=500 mg/dL Cholesterol 152 0 - 199 mg/dL [facility] Comment: National Lipid Association/NCEP Guidelines: Desirable < 200 mg/dL Borderline high: 200-239 mg/dL High Risk: >=240 mg/dL HDL Cholesterol 22 mg/dL [facility] Comment: Reference Ranges: Males: >=40 mg/dL Females: >=50 mg/dL LDL Cholesterol, Calc 95 0 - 129 mg/dL [facility] Comment: National Lipid Association/NCEP Guidelines: Optimal < 100 mg/dL Near Optimal 100-129 mg/dL Borderline high 130-159 mg/dL High >=160 mg/dL Cholesterol/HDL Ratio 6.9 [facility] Comment: Optimal < 3.5:1 High > 5:1 01/22/2020 9:58 AM CDT 01/22/2020 10:14 AM CDT Narrative Resulting Agency Comment CLI Charanjit Sheffield MD LAB BLOOD ORDERABLES Final Result Performing Organization Address City/State/ZIP [place] Phone Number [place] [id number] [address], [facility] [phone] * COLONOSCOPY REPORT (07/01/2017) Anatomical Region Laterality Modality Other Provider Scanning GI PROCEDURE ORDERABLES Edited Result - Final from Last 3 Months or Most Recently Relevant to Health Maintenance Insurance [facility] Care Teams Cerner Analyst Relationship Specialty Start Date End Date Unknown, Notinfile PCP - General 08/01/24 Miscellaneous, Not In File 11/16/19
--- OUTSIDE RECORDS SUMMARY | 2024-11-27 18:32 | XMS_ITS | Encounter Summary ---
Author Organization [facility] Health Address [address] [facility] [place] [address] Care Team Providers Care Home Health Caregiver Name Role Phone Unavailable Primary Care Provider Unavailabl e Reason for Visit * Reason Onset Date Comments Blood Pressure 12/01/2019 Encounter Details Date Type Department Care Team (Late st Contact Info) Description 12/01/2019 Telephone [facility] [address] [place] [address] Radha Palafox, DIRECTOR OF BROADCAST-BELT CLEANER [address] [facility] [id number] Blood Pressure Social History Tobacco Use Types [...] AM CDT Carlos Mcgee was transferred to de. He is demanding to speak to someone [...] He would like additional medication sent to [facility] in [place], [place]. Mallory in the Call Center stated [...]
--- OUTSIDE RECORDS SUMMARY | 2024-11-27 18:32 | XMS_ITS | Encounter Summary ---
Author Organization [facility] Address [address] [place] [address] Care Team Providers Care Mdm Sr Name Role Phone Howard Trinidad MD Primary [...] on file Legal Sex Male 4:57 AM BAG END SEWER Gender Identity Not on file Sexual Orientation Not on file documented as of this encounter Plan of Treatment Not on file documented as of this encounter Visit Diagnoses Diagnosis Abdominal pain, left lower quadrant- Primary documented in this encounter Care Teams Mdm Sr Relationship Specialty Start Date End Date Howard Trinidad MD PCP - General Family Practice 01/25/16 01/26/16 documented as of this encounter
--- OUTSIDE RECORDS SUMMARY | 2024-11-27 18:32 | XMS_ITS | Encounter Summary ---
Author Organization [facility] Health Address [address] [facility] [place] [address] Care Team Providers Care Power Saw Mechanic Name Role Phone Unavailable Primary Care Provider Unavailabl e Encounter Details Date Type Department Care Team (Late st Contact Info) Description 09/08/2019 Telephone [facility] [address] [facility] [address] [place] [address] Radha Palafox APRN-CNP [address] [facility] [place] [id number] Social History Tobacco Use Types Packs/Day Years [...] reluctantly let me connect him to scheduling ATOR * Telephone Encounter - Radha Palafox APRN-CNP - 09/08/2019 1:59 PM HYDRATOR Please tell him that he needs to elevate his legs. I can not do anything for him over the phone. MELISA Diaz ATOR * Telephone Encounter - Mallory Flores RN [...] would like you to call him CB [phone] ATOR documented in this encounter Plan of Treatment Not on file documented as of this encounter Visit Diagnoses Not on filedocumented in this encounter
--- OUTSIDE RECORDS SUMMARY | 2024-11-27 18:32 | XMS_ITS | Patient Health Summary ---
Author Organization [facility] Address [address] [place] [address] Care Team Providers Care Call Or Contact Centre Coach Name Role Phone Unavailable Primary Care Provider Unavailabl e Note from [facility],non-owned Affiliates and Associated Physician Practices is amultiple site organization consisting of ambulatory clinics and hospital sitesin [place], [place], [place] and [place]. This disclosure is being madepursuant to the Care Everywhere program and may not contain all information available regarding this patient. Last updated 18.[facility] Allergies * Azithromycin(Other) * Bactrim Ds(Rash) * [...] propionate (FLONASE) 50 MCG/ACT nasal spray(Started 08/01/2019) [place] 2 sprays into each nostril once daily 11 refills remaining * hyoscyamine 0.125 MG tablet(Started 09/30/2019) Take 1 tablet by mouth every 4 hours as needed for Spasms * promethazine (PHENERGAN) 25 MG tablet(Started 10/20/2019) Take 1 tablet by mouth every 6 hours as needed for Nausea/Vomiting * ipratropium (ATROVENT) 0.06 % nasal spray(Started 10/28/2019) [place] 2 sprays into each nostril 3 times [...] 07/05/2012 08/01/2019 Dizziness 12/05/2009 08/01/2019 Immunizations * TD VACCINE(Given 09/13/2011) Social History Tobacco Use Types Packs/Day [...] 64 11/30/2022 3:41 AM CDT Temperature 36.6 C (97.8 F) 11/30/2022 3:41 AM CDT Respiratory Rate 16 11/30/2022 3:41 AM CDT [...] complication, without long-term current use of insulin ([facility]) * MICROALB/CREAT RATIO URINE RANDOM PANEL(Performed 10/20/2019) [...] Performed for Unspecified Chest Pain * R/O DE PROFILE(Performed 01/01/2008) Performed for Unspecified Chest Pain * PT PTT PANEL(Performed 01/01/2008) Performed for Unspecified Chest Pain * COMPREHENSIVE METABOLIC PANEL(Performed 01/01/2008) Performed for Unspecified Chest Pain * CBC W AUTO DIFFERENTIAL(Performed 01/01/2008) Performed for Unspecified Chest Pain * XR CHEST 1VW PORTABLE(Performed 01/01/2008) Performed for Chest Pain Results * CULTURE URINE (11/09/2019 2:41 PM [facility]) Only the most recent of3 resultswithin the time period is included. Culture Urine No growth (<100 CFU/mL) KATIE 11/11/2019 7:21 AM COIL [facility]MER [facility] MICROBIOLOGY Urine URINE SPECIMEN OBTAINED BY CLEAN CATCH PROCEDURE / Unknown Collection / Unknown 11/09/2019 2:41 PM [facility] 11/09/2019 2:56 PM [facility] Regina Lara APRN-PERINATAL NURSE LAB - MICROBIOLO GY ORDERABLES [facility]CRO[facility] [address] [place] [address], [facility] [phone] * URINALYSIS AUTO - POINT OF CARE (AMB) [facility] (11/09/2019 10:21 AM [facility]MER) Glucose UA - Bilirubin UA POCT 1+ Ketones UA POCT - Specific [place] UA 1.025 Blood Urine POCT - pH UA 6.0 Protein UA 1+ Urobilinogen UA +- Nitrite UA - WBC UA +- Urine URINE / Unknown 11/09/2019 1 0:21 AM CO[facility]MER Regina Lara ROUGHER MACHINE OPERATOR-PERINATAL NURSE LAB - POINT OF C ARE ORDERABLES * XR LUMBAR SPINE 4VW OR MORE (10/20/2019 3:18 PM [facility]) Anatomical Region Laterality Modality Spine Radiographic Katarzyna ging 10/20/2019 3:23 PM [facility] Impressions 10/20/2019 3:38 PM [facility] IMPRESSION: No acute fracture or subluxation identified. Multilevel degenerative changes. Dictated by Devon Jolly MD (ceo and president) I, Dr. COURTNEY BILLINGS M.D. have personally reviewed and interpreted this examination/study. This report was electronically signed by COURTNEY BILLINGS M.D. on 10/20/2019 3:38 PM . Narrative 10/20/2019 3:38 PM [facility] EXAMINATION: XR LUMBAR SPINE 4VW OR MORE [...] degenerative changes. Dictated by Devon Jolly MD (ceo and president) I, Dr. COURTNEY BILLINGS M.D. have personally reviewed and interpretedthis examination/study. This report was electronically signed by COURTNEY BILLINGS M.D. on10/20/2019 3:38 PM . Radha Palafox ROUGHER MACHINE OPERATOR-[facility] DIAGNOSTIC IMAGING ORDERABLES * HEPATITIS C AB W RFLX VERIFICATION (10/20/2019 2:41 PM COIL [facility]MER) Pathologist [facility] Hepatitis C Antibody <0.1 0.0 - 0.9 s/co ratio 10/21/2019 8:18 AM CO[facility]MER [facility] ([facility]) Blood BLOOD SPECIMEN / Unknown Lab Venipuncture / Unknown 10/20/2019 2:41 PM [facility]MER 10/20/2019 3:01 PM [facility] Narrative [facility] ([facility]) - 10/21/2019 8:18 AM [facility]MER Performed at: [facility] [address] [place], [place] [id number] [employer] Machine Operator: Carlos Woods PhD, Phone: [phone] Radha Palafox [facility] LAB - CHEMI STRY ORDERABLES [facility] ([facility]) [address] [place] [address] * HCV COMMENT (10/20/2019 2:41 PM COIL [facility]MER) Comment Comment 10/21/2019 8:18 AM [facility] ([facility]) Comment: Non reactive HCV antibody screen is consistent with no HCV infection, unless recent infection is suspected or other evidence exists to indicate HCV infection. Blood BLOOD SPECIMEN / Unknown Lab Venipuncture / Unknown 10/20/2019 2:41 PM [facility] 10/20/2019 3:01 PM [facility]MER Narrative [facility] ([facility]) - 10/21/2019 8:18 AM CO[facility]MER Performed at: [facility] [address] [place], [place] [id number] [employer] Machine Operator: Carlos Woods PhD, Phone: [phone] Radha Palafox [facility] LAB - CHEMI STRY ORDERABLES [facility] ([facility]) [address] [place] [address], [facility] * (ABNORMAL) MICROALB/CREAT RATIO URINE RANDOM PANEL (10/20/2019 2:41 PM [facility]MER) Albumin Random Urine 65.0 Not Established mcg/mL 10/20/2019 4:57 PM [facility]MER [facility] Creatinine Urine 143 Not Established mg/dL 10/20/2019 4:57 PM [facility] Comment: Result obtained by dilution. Urine Albumin/Creati nine Ratio 45(H) <30 mg/g 10/20/2019 4:57 PM [facility] Urine URINE SPECIMEN OBTAINED BY CLEAN CATCH PROCEDURE / Unknown Collection / Unknown 10/20/2019 2:41 PM [facility]MER 10/20/2019 3:01 PM [facility] - URINE CHEMISTRY ORDERABLES [address] [phone] * URINALYSIS REFLEX TO MICROSCOPIC NO CULTURE (10/20/2019 2:41 PM CO[facility]MER) Only the most recent of5 resultswithin the time period is included. Color UA Yellow Straw, Yellow, Colorless 10/20/2019 3:28 PM CO[facility]MER [facility] Clarity UA Clear Clear, Slt Cloudy 10/20/2019 3:28 PM [facility] Specific [place] UA 1.015 1.005 - 1.030 10/20/2019 3:28 PM [facility] pH UA 6.0 5.0 - 8.0 pH 10/20/2019 3:28 PM [facility] Protein UA Negative Negative mg/dL 10/20/2019 3:28 PM [facility] Glucose UA Negative Negative mg/dL 10/20/2019 3:28 PM [facility] Ketone UA Negative Negative mg/dL 10/20/2019 3:28 PM [facility] Bilirubin UA Negative Negative mg/dL 10/20/2019 3:28 PM [facility] Blood UA Negative Negative 10/20/2019 3:28 PM [facility] Nitrite UA Negative Negative 10/20/2019 3:28 PM [facility] Leukocyte Esterase Negative Negative 10/20/2019 3:28 PM [facility] Urobilinogen UA Negative Negative mg/dL 10/20/2019 3:28 PM [facility] RBC UA 0-2 None Seen, 0-2, 3-5 /HPF 10/20/2019 3:28 PM [facility] WBC UA 0-5 None Seen, 0-5 /HPF 10/20/2019 3:28 PM [facility] Squamous Epithelial Cells UA None Seen None Seen, 0-2 /HPF 10/20/2019 3:28 PM [facility] Mucus UA 1+ None, 1+ /LPF 10/20/2019 3:28 PM [facility] Urine URINE SPECIMEN OBTAINED BY CLEAN CATCH PROCEDURE / Unknown Collection / Unknown 10/20/2019 2:41 PM [facility]MER 10/20/2019 3:01 PM [facility] - 10/20/2019 3:28 PM COIL FORMER Radha Palafox ROUGHER MACHINE OPERATOR-PERINATAL NURSE LAB - URINA LYSIS ORDERABLES [address] [phone] * (ABNORMAL) CBC WITH DIFFERENTIAL (10/20/2019 2:41 PM COIL [facility]MER) Only the most recent of8 resultswithin the time period is included. WBC 7.1 3.5 - 10.5 10 3/uL 10/20/2019 3:06 PM [facility] RBC 5.94(H) 4.30 - 5.70 10 6/uL 10/20/2019 3:06 PM [facility] Hemoglobin 14.4 13.5 - 17.5 g/dL 10/20/2019 3:06 PM [facility] Hematocrit 44.7 39.0 - 50.0 % 10/20/2019 3:06 PM [facility] MCV 75.3(L) 81.0 - 97.0 fL 10/20/2019 3:06 PM [facility] MCH 24.2(L) 28.0 - 34.0 pg 10/20/2019 3:06 PM [facility] MCHC 32.2 32.0 - 36.0 g/dL 10/20/2019 3:06 PM [facility] Platelet Count 196 150 - 400 10 3/uL 10/20/2019 3:06 PM [facility] RDW-SD 39.6 36.0 - 50.0 fL 10/20/2019 3:06 PM [facility] RDW-CV 14.6 11.2 - 14.8 % 10/20/2019 3:06 PM [facility] MPV 9.4 9.3 - 12.8 fL 10/20/2019 3:06 PM [facility] nRBC Absolute 0.00 0 10 3/uL 10/20/2019 3:06 PM [facility] nRBC Auto 0.0 0 /100 WBC 10/20/2019 3:06 PM [facility] Neutrophils % 63.6 35.0 - 70.0 % 10/20/2019 3:06 PM [facility] Lymphocytes % 25.4 19.7 - 55.1 % 10/20/2019 3:06 PM [facility] Monocytes % 7.6 3.0 - 15.0 % 10/20/2019 3:06 PM [facility] Eosinophils % 2.7 0.0 - 6.0 % 10/20/2019 3:06 PM [facility] Basophil % 0.6 0.0 - 1.5 % 10/20/2019 3:06 PM [facility] Neutrophils Absolute 4.5 1.6 - 7.0 10 3/uL 10/20/2019 3:06 PM [facility] Lymphocyte Absolute 1.8 0.8 - 2.9 10 3/uL 10/20/2019 3:06 PM [facility] Monocytes Absolute 0.54 0.14 - 0.66 10 3/uL 10/20/2019 3:06 PM [facility] Eosinophils Absolute 0.19 0.00 - 0.45 10 3/uL 10/20/2019 3:06 PM [facility] Basophils Absolute 0.04 0.00 - 0.06 10 3/uL 10/20/2019 3:06 PM [facility] Immature Granulocytes % 0.1 0.0 - 1.0 % 10/20/2019 3:06 PM [facility] Blood BLOOD SPECIMEN / Unknown Lab Venipuncture / Unknown 10/20/2019 2:41 PM [facility]MER 10/20/2019 3:01 PM [facility]MER Radha Palafox ROUGHER MACHINE OPERATOR-PERINATAL NURSE LAB - HEMAT OLOGY ORDERABLES [address] [phone] * (ABNORMAL) COMPREHENSIVE METABOLIC PANEL (10/20/2019 2:41 PM COIL [facility]MER) Only the most recent of7 resultswithin the time period is included. BUN 11 7 - 26 mg/dL 10/20/2019 3:33 PM [facility] Creatinine 0.9 0.6 - 1.2 mg/dL 10/20/2019 3:33 PM [facility] Sodium 142 136 - 145 mmol/L 10/20/2019 3:33 PM [facility] Potassium 3.3(L) 3.5 - 4.5 mmol/L 10/20/2019 3:33 PM [facility] Chloride 104 98 - 107 mmol/L 10/20/2019 3:33 PM [facility] CO2 25 22 - 29 mmol/L 10/20/2019 3:33 PM [facility] Glucose 96 70 - 115 mg/dL 10/20/2019 3:33 PM [facility] Calcium 9.5 8.4 - 10.2 mg/dL 10/20/2019 3:33 PM [facility] Protein Total 8.2 6.0 - 8.3 g/dL 10/20/2019 3:33 PM [facility] Albumin 4.2 3.4 - 5.0 g/dL 10/20/2019 3:33 PM [facility] Bilirubin Total 1.7(H) 0.2 - 1.2 mg/dL 10/20/2019 3:33 PM [facility] Alkaline Phosphatase 75 40 - 150 Units/L 10/20/2019 3:33 PM [facility] ALT 60(H) 0 - 55 Units/L 10/20/2019 3:33 PM [facility] AST 63(H) 5 - 34 Units/L 10/20/2019 3:33 PM [facility] Anion Gap 16 8 - 18 10/20/2019 3:33 PM [facility] BUN/Creatinine Ratio 12 7 - 23 10/20/2019 3:33 PM [facility] Osmolality Calculated 293 270 - 300 mOsm/kg 10/20/2019 3:33 PM [facility] Albumin/Globulin Ratio 1.1 1.1 - 2.3 10/20/2019 3:33 PM [facility] eGFR >60 >60 mL/min/1.7 3 m2 10/20/2019 3:33 PM [facility] Blood BLOOD SPECIMEN / Unknown Lab Venipuncture / Unknown 10/20/2019 2:41 PM [facility] 10/20/2019 3:01 PM [facility] Radha Palafox ROUGHER MACHINE OPERATOR-PERINATAL NURSE LAB - CHEMI STRY ORDERABLES [address] [phone] * TSH (10/20/2019 2:41 PM COIL FORMER) TSH 1.644 0.350 - 4.940 uIU/mL 10/20/2019 3:53 PM [facility] Blood BLOOD SPECIMEN / Unknown Lab Venipuncture / Unknown 10/20/2019 2:41 PM [facility] 10/20/2019 3:01 PM CO[facility]MER Radha Dg Vivienne ROUGHER MACHINE OPERATOR-PERINATAL NURSE LAB - CHEMI STRY ORDERABLES [address] [phone] * (ABNORMAL) LIPID PROFILE (10/20/2019 2:41 PM COIL [facility]MER) Cholesterol Total 173 <200 mg/dL 10/20/2019 3:33 PM [facility] HDL 21(L) >40 mg/dL 10/20/2019 3:33 PM [facility] Comment: ATP III Classification of HDL Cholesterol: <40 mg/dL: Considered a major risk factor. >60 mg/dL: Considered a negative risk factor. LDL Calculated 104(H) <100 mg/dL 10/20/2019 3:33 PM [facility] Comment: ATP III Classification of LDL Cholesterol: <100 mg/dL: Optimal 100 - 129 mg/dL: Near Optimal/Above Optimal 130 - 159 mg/dL: Borderline High 160 - 189 mg/dL: High >190 mg/dL: Very High Triglycerides 240(H) <150 mg/dL 10/20/2019 3:33 PM [facility] Comment: ATP III Classification of Triglycerides: <150 mg/dL: Normal 150 - 199 mg/dL: Borderline High 200 - 400 mg/dL: High >500 mg/dL: Very High Blood BLOOD SPECIMEN / Unknown Lab Venipuncture / Unknown 10/20/2019 2:41 PM [facility] 10/20/2019 3:01 PM [facility] Radha Palafox APRN-PERINATAL NURSE LAB - CHEMI STRY ORDERABLES [address] [phone] * HEMOGLOBIN A1C - POINT OF CARE (AMB) [facility] (08/01/2019) Hemoglobin A1c POCT 7.5 BLOOD SPECIMEN / Unknown 08/01/2019 Radha Palafox ROUGHER MACHINE OPERATOR-PERINATAL NURSE LAB - POINT OF CARE ORDERABLES * XR CERVICAL SPINE 2 OR 3 VW (10/24/2016 2:40 AM [facility]MER) Anatomical Region Laterality Modality Spine Radiographic Katarzyna ging 10/24/2016 7:09 AM [facility] Impressions 10/24/2016 7:10 AM [facility] The spinal alignment is normal. The prevertebral soft tissues also appear normal. Mild degenerative disc disease is seen at C5-C6. The C7 vertebral body is not well seen in the lateral view. The C1-C2 articulation appears normal. Narrative 10/24/2016 7:10 AM [facility]MER Exam: Cervical spine, 5 views. History: Cervalgia. [...] PELVIS NON IV CONTRAST (07/30/2015 2:22 AM CO[facility]MER) Only the most recent of4 resultswithin the time period is included. Anatomical Region Laterality Modality Abdomen, Pelvis Computed Tomogra phy 07/30/2015 7:53 AM [facility]MER Impressions 07/30/2015 8:05 AM [facility]MER Thickened sigmoid colon wall with associated diverticula. Findings could be compatible with sigmoid diverticulitis. Other causes for sigmoid wall thickening should be excluded. Edited by Seema Garsia on 07/30/2015 8:00 AM Narrative 07/30/2015 8:[address] ABDOMEN AND PELVIS WITHOUT CONTRAST History: [...] ROUTINE W/REFLEX TO CULTURE (07/29/2015 11:41 PM CO[facility]MER) Only the most recent of6 resultswithin the time period is included. Color UA Yellow Straw, Yellow, Dark Yellow 07/30/2015 12:33 AM COIL [facility]MER [facility] Clarity UA Clear 07/30/2015 12:33 AM [facility] Specific [place] UA 1.018 1.005 - 1.030 07/30/2015 12:33 AM COIL FORMER [facility] pH UA 6.0 5.0 - 8.0 pH 07/30/2015 12:33 AM [facility] Protein UA Trace(A) Negative 07/30/2015 12:33 AM COIL FORMER [facility] Blood UA Negative Negative 07/30/2015 12:33 AM [facility] Leukocyte UA Negative Negative 07/30/2015 12:33 AM [facility] Nitrite UA Negative Negative 07/30/2015 12:33 AM [facility] Glucose UA Negative Negative 07/30/2015 12:33 AM [facility] Ketone UA Negative Negative 07/30/2015 12:33 AM [facility] Bilirubin UA Negative Negative 07/30/2015 12:33 AM [facility] Urobilinogen UA 0.2 0.1 - 1.0 EU/dL 07/30/2015 12:33 AM [facility] Reflex Status Culture not indicated 07/30/2015 12:33 AM [facility] Urine URINE SPECIMEN OBTAINED BY CLEAN CATCH PROCEDURE / Unknown Collection / Unknown 07/29/2015 11:41 PM [facility]MER 07/30/2015 12:30 AM COIL [facility]MER Emani Chaudhari MD LAB - URINALYSIS ORD ERABLES [facility] [address] [place] [address] [phone] * MONONUCLEOSIS SCREEN (07/29/2015 11:41 PM COIL FORMER) [facility] Mononucleosis Screen Negative Negative 07/30/2015 12:14 AM [facility] Blood BLOOD SPECIMEN / Unknown Venipuncture / Unknown 07/29/2015 11:41 PM [facility]MER 07/30/2015 12:12 AM CO[facility]MER Emani Chaudhari MD LAB - CHEMISTRY ORDE RABLES [facility] [address] [place] [phone] * (ABNORMAL) DRUG SCREEN TOX URINE PANEL (07/29/2015 11:41 PM COIL FORMER) [facility] Amphetamines Screen Urine Not Detected Not Detected 07/30/2015 12:00 AM [facility] Barbiturates Screen Urine Not Detected Not Detected 07/30/2015 12:00 AM [facility] Benzodiazepines Screen Urine Detected(A) Not Detected 07/30/2015 12:00 AM [facility] Cannabinoids Screen Urine Not Detected Not Detected 07/30/2015 12:00 AM [facility] Cocaine Screen Urine Not Detected Not Detected 07/30/2015 12:00 AM [facility] Methadone Screen Urine Not Detected Not Detected 07/30/2015 12:00 AM [facility] Opiate Screen Urine Not Detected Not Detected 07/30/2015 12:00 AM [facility] Phencyclidine Screen Urine Not Detected Not Detected 07/30/2015 12:00 AM [facility] Urine URINE / Unknown 07/29/2015 1 1:41 PM [facility]MER 07/29/2015 11:48 PM CO[facility]MER Narrative [facility] - 07/30/2015 12:00 AM [facility] This drug screen is designed for MEDICAL purposes only. It is not to be used for legal purposes, including but not limited to worker's comp, police investigations, occupational issues, child custody, etc. Any positive result is only presumptive and must be confirmed with a separate confirmatory test ordered by the physician. Drug Screening Test Cutoff Values: AMPHETAMINES 1000 ng/mL BARBITURATES 200 ng/mL BENZODIAZEPINES 200 ng/mL CANNABINOIDS(THC) 50 ng/mL COCAINE 300 ng/mL METHADONE 300 ng/mL OPIATES 300 ng/mL PHENCYCLIDINE(PCP)25 ng/mL Emani Chaudhari MD LAB - URINE CHEMISTR Y ORDERABLES [facility] [address] [place] [address] * XR CHEST PA AND LATERAL (07/29/2015 11:19 PM [facility]) Only the most recent of2 resultswithin the time period is included. Anatomical Region Laterality Modality Chest Radiographic Katarzyna ging 07/30/2015 7:15 AM CO[facility]MER Impressions 07/30/2015 7:16 AM CO[facility]MER Clear lungs. Narrative 07/30/2015 7:16 AM [facility] Chest x-ray 2 views. History: Weakness. 2 [...] CT HEAD NON CONTRAST (07/29/2015 10:58 PM CO[facility]MER) Anatomical Region Laterality Modality Head Computed Tomogra phy 07/30/2015 7:24 AM [facility]MER Impressions 07/30/2015 7:30 AM [facility] Unremarkable study. Edited by Seema Garsia on 07/30/2015 7:29 AM Narrative 07/30/2015 7:[address] BRAIN WITHOUT CONTRAST History: Somnolence, dizziness. [...] * ALCOHOL ETHYL BLOOD (07/29/2015 10:50 PM COIL FORMER) Ethanol <10 <10 mg/dL 07/29/2015 11:13 PM CO[facility]MER [facility] Ethanol Calculated <0.100 gm/dL 07/29/2015 11:13 PM COIL [facility]MER [facility] Blood BLOOD SPECIMEN / Unknown Venipuncture / Unknown 07/29/2015 10:50 PM CO[facility]MER 07/29/2015 10:50 PM CO[facility]MER Narrative [facility] - 07/29/2015 11:13 PM COIL FORMER Non Legal Serum Alcohol Emani Chaudhari MD LAB - CHEMISTRY [place] [facility] Organization Address City/State/ZIP Co de Phone Number [facility] [address] [place] [address] * (ABNORMAL) ACETAMINOPHEN LEVEL (07/29/2015 10:50 PM COIL FORMER) [facility] Acetaminophen <2.0(L) 10.0 - 30.0 ug/mL 07/29/2015 11:13 PM [facility] Blood BLOOD SPECIMEN / Unknown Venipuncture / Unknown 07/29/2015 10:50 PM CO[facility]MER 07/29/2015 10:50 PM COIL FORMER [facility] - 07/29/2015 11:13 PM COIL FORMER [facility] ACETAMINOPHEN COMMENT Critical values: 4 Hours Post Ingestion: Critical value > 200 g/mL 12 Hours Post Ingestion: Critical value > 50 g/mL For acute ingestion, please refer to Acetaminophen nomogram to determine the risk of toxicity based on time since ingestion and acetaminophen level (see link provided). Note the nomogram disclaimer. WARNING: Assessing the potential toxicity of an acetaminophen level on a standard risk nomogram must take into consideration many factors including any uncertainty of the time since ingestion or the possibility of other medications that may alter the peak level. Contact the [place] [facility] at or reserved for healthcare professionals to assist you in evaluating potentially toxic acetaminophen levels. Emani Chaudhari MD LAB - CHEMISTRY [place] Performing Organization Address City/[facility]/ZIP Co de Phone Number [facility] [address] [place] [address] * MAGNESIUM BLOOD (07/29/2015 9:26 PM COIL FORMER) [facility] Magnesium 1.9 1.6 - 2.6 mg/dL 07/30/2015 12:24 AM [facility] Blood BLOOD SPECIMEN / Unknown 07/29/2015 9:26 PM CO[facility]MER 07/29/2015 9:31 PM CO[facility]MER Emani Chaudhari MD LAB - CHEMISTRY [place] Performing Organization Address City/[facility] Co de Phone Number [facility] [address] [place] [phone] * GLUCOSE - POINT OF CARE (08/05/2014 12:44 AM COIL FORMER) Only the most recent of2 resultswithin the time period is included. Glucose WB/POC 103 70 - 106 mg/dL 08/05/2014 5:26 PM CO[facility]MER [facility] Blood BLOOD SPECIMEN / Unknown 08/05/2014 12:44 AM CO[facility]MER 08/05/2014 5:26 PM COIL [facility]MER Juan Luis Waddell DO LAB - POINT OF CARE ORDERABLES Performing Organization Address City/[facility]/ZIP Co de Phone Number [facility] [address] [place] [address] * EKG 12-LEAD (08/04/2014 11:13 PM COIL FORMER) Only the most recent of6 resultswithin the time period is included. Ventricular Rate 100 BPM [facility] Atrial Rate 100 BPM [facility] P-R Interval 98 ms [facility] QRS Duration ms 96 ms [facility] Q-T Interval ms 346 ms [facility] QTC Calculation (Bezet) 446 ms [facility] Calculated P [place] 30 degrees [facility] Calculated R [place] 49 degrees [facility] Calculated T [place] 12 degrees [facility] Interpretation EKG Sinus rhythm with short [place] Possible Left atrial enlargement Borderline ECG Confirmed by BRIT CANDELARIO MD ([id number]) on 08/06/2014 9:56:57 AM [facility] 08/04/2014 11:1 3 PM CO[facility] FORMER 08/06/2014 9:56 AM COIL [facility]MER Juan Luis Waddell DO ECG ORDERABLES Performing Organization Address [facility] Co de Phone Number [facility] * LIPASE BLOOD (10/09/2013 2:44 PM COIL FORMER) Only the most recent of4 resultswithin the time period is included. Lipase 51 8 - 78 Units/L [facility] Serum 10/09/2013 2:44 PM CO[facility]MER 10/09/2013 2:44 PM COIL [facility]MER Memo Workman MD LAB - CHEMISTRY [place] [facility] [address] [phone] * AMYLASE BLOOD (10/09/2013 2:44 PM COIL FORMER) Amylase 59 25 - 125 Units/L [facility] Serum 10/09/2013 2:44 PM COIL [facility]MER 10/09/2013 2:44 PM COIL FORMER Memo Workman MD LAB - CHEMISTRY [place] [facility] [address] [place] [address] * (ABNORMAL) DRUG ABUSE PANEL 10-20+ETHANOL URINE NO CONFIRM (10/09/2013 2:43 PM COIL FORMER) Amphetamines NEGATIVE NEGATIVE [facility] Comment:Positive Cutoff: >=1 000 ng/mL Barbiturate NEGATIVE NEGATIVE [facility] Comment:Positive Cutoff: >=2 00 ng/mL Benzodiazepine Screen Urine POSITIVE(A) NEGATIVE [facility] Comment:Positive Cutoff: >=2 00 ng/mL Opiates POSITIVE(A) NEGATIVE [facility] Comment:Positive Cutoff: >=3 00 ng/mL Cocaine Metabolite Urine NEGATIVE NEGATIVE [facility] Comment:Positive Cutoff: >=3 00 ng/mL Phencyclidine Screen Urine NEGATIVE NEGATIVE [facility] Comment:Positive Cutoff: >=2 5 ng/mL Cannabinoids Screen Urine NEGATIVE NEGATIVE [facility] Comment:Positive Cutoff: >=5 0 ng/mL Methadone NEGATIVE NEGATIVE [facility] Comment:Positive Cutoff: >=3 00 ng/mL Note SEE NOTE [facility] Comment: Positive results should be confirmed by another generally accepted non-immunological method such as gas chromatography or mass spectrometry. Toxicology testing by the [facility] is an aid to medical diagnosis and treatment of patients. No documented chain of custody was maintained. Results are intended to be used for clinical purposes only. Note SEE NOTE [facility] Comment: The UTOX Panel does not screen for Propoxyphene, Meprobamate, Carisoprodol, Trazodone, uegv-gcp-kryfmpu medications and/or volatiles (Acetone, Isopropanol, Methanol, Ethylene Glycol). Ethanol, Salicylate, Acetaminophen, Tricyclic Antidepressants and several therapeutic drugs may be individually assayed in a serum specimen. Urine specimen (specimen) 10/09/2013 2:43 PM COIL FORMER 10/09/2013 2:44 PM COIL FORMER Memo Workman MD LAB - URINE CHEMISTR Y ORDERABLES [address] [phone] * INFLUENZA A+B ANTIGEN RAPID (09/11/2013 12:16 AM COIL FORMER) Influenza A Antigen Negative Negative 09/11/2013 12:44 AM COIL FORMER [facility] Influenza B Antigen Negative Negative 09/11/2013 12:44 AM COIL FORMER [facility] Microbiology NASOPHARYNGEAL SWAB / Unknown 09/11/2013 12:16 AM COIL FORMER 09/11/2013 12:26 AM COIL FORMER Narrative [facility] - 09/11/2013 12:44 AM COIL FORMER The sensitivity of rapid tests for influenza A and B antigens, according to the published reports , ranges from 30-70% when compared to PCR and viral culture. For H1N1 influenza A, the sensitivity varies from 30-50%. For other influenza A strains, the sensitivity ranges from 50-70%. For influenza B virus, the sensitivity is approximately 30%. A negative result does not exclude influenza infection. False-positive (and true-negative) influenza test results are more likely to occur when disease prevalence is low, which is generally at the beginning and end of the influenza season. False-negative (and true-positive) influenza test results are more likely to occur when disease prevalence is high, which is typically at the height of the influenza season. Graeem Ahmadi MD LAB - MICROBIO LOGY ORDERABLES [facility] [address] [place] [address] * (ABNORMAL) DRUG SCREEN TRIAGE PANEL (01/30/2012 [...] Opiate Screen Urine NOT DETECTED 300 ng/ml [facility] Barbiturates Screen Urine NOT DETECTED 300 ng/ml [facility] URINE / Unknown 01/30/2012 7 :20 PM CDT 01/30/2012 7:31 PM CDT Avelina Patel MD LAB - URINE CHEMI STRY ORDERABLES Performing Organization Address City/[facility]/ZIP Co de Phone Number [facility] [address] [place] [address] * LAB HISTORICAL RESULTS-ONBASE (10/30/2011) Only the most recent of2 resultswithin the time period is included. 10/30/2011 Historical Provider LAB - CHEMISTRY O RDERABLES Performing Organization Address [facility] Co de Phone Number [facility] * (ABNORMAL) URINALYSIS - POINT OF CARE (AMB) [facility] (10/30/2011) Glucose UA neg [facility] Bilirubin UA POCT 1+(A) [facility] Ketones UA POCT + 5(A) [facility] Specific [place] UA 1.025 [facility] Blood Urine POCT neg [facility] pH UA 5.5 [facility] Protein UA + 15(A) [facility] Urobilinogen UA 1+(A) [facility] Nitrite UA +(A) [facility] WBC UA 2+(A) [facility] Urine specimen (specimen) 10/30/2011 Historical Provider LAB - POINT OF CA RE ORDERABLES Performing Organization Address [facility]/ZIP Co de Phone Number [facility] * B-TYPE NATRIURETIC PEPTIDE - POINT OF CARE (01/03/2010 3:41 PM CDT) BNP POCT < 5.0 <=100 pg/ml [facility] Performed by [facility] Performed In ER [facility] BLOOD SPECIMEN / Unknown 01/03/2010 3:41 PM CDT 01/03/2010 3:42 PM CDT Er LAB - POINT OF CARE ORDERABLES Performing Organization Address [facility] Co de Phone Number [facility] [address] [place] [address] * MYOGLOBIN BLOOD - POINT OF CARE (01/03/2010 3:41 PM CDT) Myoglobin POCT 61.5 <=170 ng/ml [facility] Performed by [facility] Performed In ER [facility] BLOOD SPECIMEN / Unknown 01/03/2010 3:41 PM CDT 01/03/2010 3:42 PM CDT Er LAB - POINT OF CARE ORDERABLES Performing Organization Address [facility] de Phone Number [facility] [address] [place] [address] * TROPONIN - POINT OF CARE (01/03/2010 3:41 PM CDT) Troponin I POCT < 0.05 SEE BELOW ng/ml [facility] Comment: Normal <0.05 Indeterminate 0.05-0.39 Abnormal >0.4 Performed by [facility] Performed In ER [facility] BLOOD SPECIMEN / Unknown 01/03/2010 3:41 PM CDT 01/03/2010 3:42 PM CDT Er LAB - POINT OF CARE ORDERABLES Performing Organization Address [facility] Co de Phone Number [facility] [address] [place] [address] * CKMB - POINT OF CARE (01/03/2010 3:41 PM CDT) CK-MB POCT < 1.0 <=8.0 ng/ml [facility] Performed by [facility] Performed In ER [facility] BLOOD SPECIMEN / Unknown 01/03/2010 3:41 PM CDT 01/03/2010 3:42 PM CDT Er LAB - POINT OF CARE ORDERABLES [facility] [address] [place] [address] * CARDIAC EKG ORDER (12/07/2009 10:14 AM CDT) Only the most recent of6 resultswithin the time period is included. Narrative 12/07/2009 10:14 AM CDT Ordered by an unspecified provider. Transcriptions Document, Scanned - 12/05/2009 12:00 AM CDT Scanned Document CARDIAC SERVICES ORD ERABLES * TROPONIN I (12/05/2009 5:40 PM CDT) Troponin I <0.10 SEE BELOW ng/ml [facility] Comment: Normal <0.10 [place] Zone 0.10-0.99 Positive >=1.00 SERUM OR PLASMA SPECIMEN / Unknown 12/05/2009 5:40 PM CDT 12/05/2009 5:45 PM CDT Thea COLLIER LAB - CHEMISTRY ORDE JULIANNA [facility] [address] [place] [address] * (ABNORMAL) DRUG SCREEN URINE ABUSE INHOUSE (11/30/2009 5:43 PM CDT) Amphetamines Screen Urine Negative Negative [facility] Barbiturates Screen Urine Negative Negative [facility] Benzodiazepines Screen Urine Positive(A) Negative [facility] Cocaine Screen Urine Negative Negative [facility] Cannabinoids Screen Urine Negative Negative [facility] Opiate Screen Urine Negative Negative [facility] Phencyclidine Screen Urine Negative Negative [facility] Methadone Screen Urine Negative Negative [facility] Legal Disclaimer Urine [facility] Comment: This drug screen is designed [...] URINE CHEMISTR Y ORDERABLES Performing Organization Address City/[facility]/ZIP Co de Phone Number [facility] [address] [place] [address] * (ABNORMAL) MYOGLOBIN BLOOD (01/01/2008 3:10 PM CDT) Myoglobin 50.3(H) <50.0 ng/mL [facility] SERUM OR PLASMA SPECIMEN / Unknown 01/01/2008 3:10 PM CDT 01/01/2008 3:13 PM CDT Taran Zhang DO LAB - CHEMISTRY ORDE RABLES Performing Organization Address [facility] Co de Phone Number [address] [address] * PT PTT PANEL (01/01/2008 1:35 PM CDT) PT 10.0 9.3 - 11.4 seconds [facility] INR 1.0 SEE BELOW [facility] Comment: 0.9-1.2 Normal 2.0-3.0 Therapeutic 2.5-3.5 High Risk PTT 29.6 24.0 - 32.0 seconds [facility] BLOOD SPECIMEN / Unknown 01/01/2008 1:35 PM CDT 01/01/2008 2:07 PM CDT Taran Zhang DO LAB - COAGULATION OR DERABLES Performing Organization Address [facility] Co de Phone Number [address] [address] * (ABNORMAL) R/O DE PROFILE (01/01/2008 1:35 PM CDT) Myoglobin 57.6(H) <50.0 ng/mL [facility] Troponin I <0.10 SEE BELOW ng/mL [facility] Comment: <0.10 Normal 0.10-0.99 Indeterminate >= 1.0 Abnormal Comment DE Baseline DE Protocol Abnormal. TNI Protocol started. [facility] SERUM OR PLASMA SPECIMEN / Unknown 01/01/2008 1:35 PM CDT 01/01/2008 2:06 PM CDT Taran Zhang DO LAB - CHEMISTRY [place] [facility] [address] [address] * CHEST XRAY - PORTABLE (01/01/2008 1:23 [...]
--- OUTSIDE RECORDS SUMMARY | 2024-11-27 18:32 | XMS_ITS | Referral Summary ---
Author Organization [facility] Ord[facility] Address [address] [place] [address] Care Team Providers Care Wigs Salesperson Name Role Phone Unavailable Primary Care Provider Unavailabl e Source Comments [facility],non-owned Affiliates and Associated Physician Practices is amultiple site organization consisting of ambulatory clinics and hospital sitesin [place], [place], [place] and [place]. This disclosure is being madepursuant to the Care Everywhere program and may not contain all information available regarding this patient. Last updated 18.[facility] Allergies Active Allergy Reactions Criticality Noted Date [...] fluticasone propionate (FLONASE) 50 MCG/ACT nasal spray [place] 2 sprays into each nostril once daily 15.8 g 11 08/01/2019 Active hyoscyamine 0.125 MG tabletIndications:Acu te diverticulitis Take 1 tablet by mouth every 4 hours as needed for Spasms 30 tablet 09/30/2019 Active promethazine (PHENERGAN) 25 MG tabletIndications:Acu te diverticulitis Take 1 tablet by mouth every 6 hours as needed for Nausea/Vomiting 20 tablet 10/20/2019 Active ipratropium (ATROVENT) 0.06 % nasal spray [place] 2 sprays into each nostril 3 times [...] (10/31/2019): Scheduled appointment with psychiatric, April 01, [facility] in [place]. Microcytic anemia 07/02/2015 SOB (shortness of breath) [...] Immunizations Name Administration Dates Next Due TD VACCINE 09/13/2011 Social History Tobacco Use Types Packs/Day [...] URINE RANDOM PANEL Routine 10/20/2019 2:41 PM MATERIAL RECLAIMER Type 2 diabetes mellitus without complication, without long-term current use of insulin (HCC) COMPREHENSIVE METABOLIC PANEL Routine 10/20/2019 2:41 PM MATERIAL RECLAIMER Type 2 diabetes mellitus without complication, without long-term current use of insulin (HCC) Obesity with serious comorbidity, unspecified classification, unspecified obesity type HEPATITIS C AB W RFLX VERIFICATION Routine 10/20/2019 2:41 PM MATERIAL RECLAIMER Type 2 diabetes mellitus without complication, without [...] AB W RFLX VERIFICATION (10/20/2019 2:41 PM MATERIAL RECLAIMER) Hepatitis C Antibody <0.1 0.0 - 0.9 s/co ratio 10/21/2019 8:18 AM MATERIAL RECLAIMER [facility] ([facility]) Blood BLOOD SPECIMEN / Unknown Lab Venipuncture / Unknown 10/20/2019 2:41 PM MATERIAL RECLAIMER 10/20/2019 3:01 PM MATERIAL RECLAIMER Narrative [facility] ([facility]) - 10/21/2019 8:18 AM MATERIAL RECLAIMER Performed at: [address] [place] [address] [id number] Programmer Analyst Consultant: Carlos Woods PhD, Phone: [phone] Radha Palafox [facility] LAB - CHEMI STRY ORDERABLES [facility] ([facility]) [address] [place] [address] * (ABNORMAL) MICROALB/CREAT RATIO URINE RANDOM PANEL (10/20/2019 2:41 PM MATERIAL RECLAIMER) Albumin Random Urine 65.0 Not Established mcg/mL 10/20/2019 4:[address] [facility] Creatinine Urine 143 Not Established mg/dL 10/20/2019 4:[address] [facility] Comment: Result obtained by dilution. Urine Albumin/Creati nine Ratio 45(H) <30 mg/g 10/20/2019 4:[address] [facility] Urine URINE SPECIMEN OBTAINED BY CLEAN CATCH PROCEDURE / Unknown Collection / Unknown 10/20/2019 2:41 PM MATERIAL RECLAIMER 10/20/2019 3:01 PM MATERIAL RECLAIMER Radha Palafox [facility] LAB - URINE CHEMISTRY ORDERABLES Performing Organization Address [facility]/State/ZIP Co de Phone Number [address] [phone] * (ABNORMAL) COMPREHENSIVE METABOLIC PANEL (10/20/2019 2:41 PM MATERIAL RECLAIMER) Pathologist [facility] BUN 11 7 - 26 mg/dL 10/20/2019 3:[address] [facility] Creatinine 0.9 0.6 - 1.2 mg/dL 10/20/2019 3:[address] [facility] Sodium 142 136 - 145 mmol/L 10/20/2019 3:[address] [facility] Potassium 3.3(L) 3.5 - 4.5 mmol/L 10/20/2019 3:[address] [facility] Chloride 104 98 - 107 mmol/L 10/20/2019 3:[address] [facility] CO2 25 22 - 29 mmol/L 10/20/2019 3:[address] [facility] Glucose 96 70 - 115 mg/dL 10/20/2019 3:[address] [facility] Calcium 9.5 8.4 - 10.2 mg/dL 10/20/2019 3:[address] [facility] Protein Total 8.2 6.0 - 8.3 g/dL 10/20/2019 3:[address] [facility] Albumin 4.2 3.4 - 5.0 g/dL 10/20/2019 3:[address] [facility] Bilirubin Total 1.7(H) 0.2 - 1.2 mg/dL 10/20/2019 3:[address] [facility] Alkaline Phosphatase 75 40 - 150 Units/L 10/20/2019 3:[address] [facility] ALT 60(H) 0 - 55 Units/L 10/20/2019 3:[address] [facility] AST 63(H) 5 - 34 Units/L 10/20/2019 3:[address] [facility] Anion Gap 16 8 - 18 10/20/2019 3:[address] [facility] BUN/Creatinine Ratio 12 7 - 23 10/20/2019 3:[address] [facility] Osmolality Calculated 293 270 - 300 mOsm/kg 10/20/2019 3:[address] [facility] Albumin/Globulin Ratio 1.1 1.1 - 2.3 10/20/2019 3:[address] [facility] eGFR >60 >60 mL/min/1.7 3 m2 10/20/2019 3:[address] [facility] Blood BLOOD SPECIMEN / Unknown Lab Venipuncture / Unknown 10/20/2019 2:41 PM MATERIAL RECLAIMER 10/20/2019 3:01 PM MATERIAL RECLAIMER [facility] - CHEMI STRY ORDERABLES [address] [phone] * HEMOGLOBIN A1C - POINT OF CARE (AMB) [facility] (08/01/2019) Hemoglobin A1c POCT 7.5 BLOOD SPECIMEN / Unknown 08/01/2019 Radha Palafox APRN-[employer] LAB - POINT OF CARE ORDERABLES from Last 3 Months or Most Recently Relevant to Health Maintenance Carlos Mcgee Personal/Family Self 1970 [place] [address]
--- OUTSIDE RECORDS SUMMARY | 2024-11-27 18:32 | XMS_ITS | Encounter Summary ---
Author Organization [employer] Address [address] [place] [address] Care Team Providers Care Conveyor Loader Name Role Phone Howard Trinidad MD Primary Care Provider Un available Encounter Details Date Type Department Care Team (Late st Contact Info) Description 02/23/2007 Outpatient Historical [facility] Ian GauthierDO [address] [place] [address] Er, Authorized P NO ADDRESS ON FILE Anxiety State, Unspecified (Primary Dx) Social History Tobacco Use Types Packs/Day Years Used Date Smoking Tobacco: Never Assessed Sex and Gender Information Value Date Recorded Sex Assigned at Not on file Legal Sex Male 4:57 AM ACTIVITY AID Gender Identity Not on file Sexual Orientation Not on file documented as of this encounter Plan of Treatment Not on file documented as of this encounter Visit Diagnoses Diagnosis Anxiety state, unspecified- Primary documented in this encounter Care Teams Conveyor Loader Relationship Specialty Start Date End Date Howard Trinidad MD PCP - General Family Practice 01/25/16 01/26/16 documented as of this encounter
--- OUTSIDE RECORDS SUMMARY | 2024-11-27 18:32 | XMS_ITS | Patient Health Record ---
Author Organization [facility] Address [address] [address] Care Team Providers Care Vice President [employer] Name Role Phone Charanjit Sheffield Primary Care Provider [phone] Allergies Allergen (clinical drug ingredient) Drug/Non Drug Allergy documented on EMR Reaction Allergy Type Onset Date Status Bactrim Unknown Drug Allergy Active Bactrim DS Unknown Drug Allergy Active BuSpar [...] Once a day for 30 days Active Mtplrbyk-Wjnnsuaen-Znrhbqcw 0.1 % 1 application into the lower [...] Problem Status W/U Status Risk Notes Problem 505355785096 Type 2 diabetes mellitus with other specified complication (E11.69) Active confirmed Problem 754904675 Mixed hyperlipidemia (E78.2) Active confirmed Problem 608180116 Nausea (R11.0) Active confirmed Problem 17425682 Anxiety (F41.9) Active confirmed Problem 472040475 Gastroesophageal reflux disease without esophagitis (K21.9) Active confirmed Problem 479526325 Mild intermitten t asthma without complication (J45.20) Active confirmed Problem 52853561 Essential hypertension (I10) Active confirmed Problem 252721564 Vertigo (R42) Active confirmed Problem 03343556 Neck pain (M54.2) Active confirmed Problem Abdominal pain (40050121) Abdominal pain (R10.9) Active confirmed Problem Depression (056157986) Depression (F32.9) Active confirmed Problem 925034538 Cervical spondylosis (M47.812) Active confirmed Problem Pain in right arm (761861124) Right arm pain (M79.601) Active confirmed Problem 459565159 Type 2 diabetes mellitus without complication, without long-term current use of insulin (E11.9) Active confirmed Problem History of gastrointestinal disease (631390878) History of diverticulosis (Z87.19) Active confirmed Problem 40273705 Allergic rhiniti s due to other allergic trigger, unspecified seasonality (J30.89) Active confirmed Problem 426433999 S/P cholecystectomy (Z90.49) Active confirmed Problem 38192784 Recurrent major depressive disorder, in partial remission (F33.41) Active confirmed Problem 64183248 Non-seasonal allergic rhinitis, unspecified trigger (J30.89) Active confirmed Problem 281074488 Elevated LFTs (R79.89) Active confirmed Problem 50481150 Discomfort of le ft eye (H57.12) Active confirmed Plan Of Treatment No Information Insurance Providers Payer Name Payer Address Payer Phone Subscriber Number Group Number Insured Name Patient Relationship to Insured Coverage Start Date Coverage End Date [facility] [address] [id number] ROBIN WADE Self - patient is the insured 9 Medical (General) History Medical History History ICD Code sinusitis Vertigo Asthma Sleep Apnea diverticulitis fatty liver 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
--- OUTSIDE RECORDS SUMMARY | 2024-11-27 18:32 | XMS_ITS | Encounter Summary ---
Author Organization [employer] Address [address] [place] [address] Care Team Providers Care Brick Sorter Name Role Phone Howard Trinidad MD Primary [...] on file Legal Sex Male 4:57 AM SALESFORCE TRAINER Gender Identity Not on file Sexual Orientation Not on file documented as of this encounter Plan of Treatment Not on file documented as of this encounter Visit Diagnoses Diagnosis Other and unspecified special symptom or syndrome, not elsewhere classified- Primary documented in this encounter Care Teams Brick Sorter Relationship Specialty Start Date End Date Howard rTinidad MD PCP - General Family Practice 01/25/16 01/26/16 documented as of this encounter
--- OUTSIDE RECORDS SUMMARY | 2024-11-27 18:32 | XMS_ITS | Encounter Summary ---
Author Organization [facility] Care Team Providers Care Buckle Stringer Name Role Phone No, Physician Primary Care Provider [phone] Cata Clifton NP Primary Care Provider [phone] No, Physician Primary Care Provider [phone] Miscellaneous, Not In File Primary Care Provider Unavailable Jagdeep Sanford DO Primary Care Provider [phone] Miscellaneous, Not In File Unavailable Unava Charanjit Wilburn MD Primary Care Provider [phone] Carlos Gamboa MD Primary Care Provid er Unknown, Notinfile Primary Care Provider Unavail able No, Physician Primary Care Provider [phone] Unknown, Notinfile Primary Care Provider Unavail able No, Physician Primary Care Provider [phone] Unknown, Notinfile Primary Care Provider Unavail able Adin Lino MD Primary Care Provider + Unknown, Notinfile Primary Care Provider Unavail able Encounter Details Date Type Department Care Team (Latest Contact Info) Description 06/23/2018 Orders Only [facility]CON[facility] ProviderRachael MD [address] [place] [address] Social History Tobacco Use Types Packs/Day Years Used Date Smoking Tobacco: Former Smokeless Tobacco: Never Alcohol Use Standard Drinks/Week Comments No 0 (1 standard drink = 0.6 oz pur e alcohol) Sex and Gender Information Value Date Recorded Sex Assigned at Not on file Legal Sex Male 1:40 AM BOTTLING ROOM WORKER Gender Identity Not on file Sexual [...] Ordered by an unspecified provider. Historical Provider MD [facility] CARDIAC SERVICES PROCE DURES Final Result documented in this encounter Visit Diagnoses Not on filedocumented in this encounter Additional Health Concerns Infection Onset Date Last Indicated Resolved Time COVID: Suspected 10/11/2023 10/11/2023 10/11/2023 5:30 PM BOTTLING ROOM WORKER COVID: Suspected 10/22/2024 10/22/2024 10/22/2024 5:53 PM BOTTLING ROOM WORKER Influenza, adult 10/22/2024 10/22/2024 10/29/2024 3:05 AM BOTTLING ROOM WORKER documented as of this encounter Care Teams Buckle Stringer Relationship Specialty Start Date End Date No, Physician PCP - General 09/15/17 03/16/19 Cata Clifton NP PCP - General 03/17/19 11/04/19 No, Physician PCP - General 11/05/19 11/11/19 Miscellaneous, Not In File PCP - General 11/12/19 0 Jagdeep Sanford DO [address] [place] [address] PCP - General Family Medicine 11/16/19 01/20/20 Charanjit Sheffield MD [address] [place] [address] PCP - General 01/21/20 09/29/20 Carlos Gamboa MD [address] [place] [address] PCP - General Family Medicine 09/30/20 05/07/21 Unknown, Notinfile PCP - General 05/08/21 11/26/21 No, Physician PCP - General 11/27/21 01/13/23 Unknown, Notinfile PCP - General 01/14/23 01/17/24 No, Physician PCP - General 01/18/24 04/21/24 Unknown, Notinfile PCP - General 04/22/24 07/30/24 Adin Lino MD [address] [place] [address] PCP - General Internal Medicine 07/31/24 07/31/24 Unknown, Notinfile PCP - General 08/01/24 Miscellaneous, Not In File 11/16/19 documented as of this encounter
--- OUTSIDE RECORDS SUMMARY | 2024-11-27 18:32 | XMS_ITS | Encounter Summary ---
Author Organization [facility] Health Address [address] [facility] [address] Care Team Providers Care Hot Metal Car Operator Name Role Phone Unavailable Primary Care Provider Unavailabl e Reason for Visit * Reason Onset Date Comments Order 08/02/2019 Encounter Details Date Type Department Care Team (Late st Contact Info) Description 08/02/2019 Telephone [facility] General Internal Medicine [address] [place] [address] Radha Palafox, RAILROAD WHEELS AND AXLES INSPECTOR-GOLD CUTTER [address] OF [facility] [place] [id number] Order Social History Tobacco Use Types Packs/Day [...] Sleep study ordered and referral to GI. ICE CHAPLAIN documented in this encounter Plan of Treatment Not on file documented as of this encounter Visit Diagnoses Diagnosis Loud snoring- Primary Class 3 severe obesity with serious comorbidity in adult, unspecified BMI, unspecified obesity type (HCC) Sleep apnea, unspecified type documented in this encounter
--- OUTSIDE RECORDS SUMMARY | 2024-11-27 18:32 | XMS_ITS | Encounter Summary ---
Author Organization [employer] Address 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
--- OUTSIDE RECORDS SUMMARY | 2024-11-27 18:32 | XMS_ITS | Encounter Summary ---
Author Organization [facility] Address [address] [place] [address] Care Team Providers Care Distance Education Coordinator Name Role Phone Unavailable Primary Care Provider Unavailabl e Reason for Visit * Reason Onset Date Comments Blood Pressure 12/01/2019 Encounter Details Date Type Department Care Team (Late st Contact Info) Description 12/01/2019 Nurse Triage [facility] General Internal Medicine [address] [facility] [address] [place] [address] Radha Palafox, CLAIMS ASSOCIATE-REGULATORY LAW SPECIALIST [address] OF [facility] [place] [phone] Blood Pressure Social History Tobacco Use Types [...] 12/01/2019 10:17 AM CDT Reason for Disposition [1] Systolic BP >= 160 OR Diastolic >= 100 AND [2] cardiac or neurologic symptoms (e.g., chest pain, difficulty breathing, unsteady gait, blurred vision) Protocols used: HIGH BLOOD [id number] Patient given ER disposition, patient verbalizes understanding. [...]
--- OUTSIDE RECORDS SUMMARY | 2024-11-27 18:32 | XMS_ITS | Clinical Summary ---
Author Organization [email or web address] Address [address] [place] [address] Care Team Providers Care Licensed Bondsman Name Role Phone Unavailable Primary Care Provider Unavailabl e Source Comments [facility],non-owned Affiliates and Associated Physician Practices is amultiple site organization consisting of ambulatory clinics and hospital sitesin [place], [place], [place] and [place]. This disclosure is being madepursuant to the Care Everywhere program and may not contain all information available regarding this patient. Last updated 18.[email or web address] Allergies Active Allergy Reactions Criticality Noted Date [...] fluticasone propionate (FLONASE) 50 MCG/ACT nasal spray [place] 2 sprays into each nostril once daily 15.8 g 11 08/01/2019 Active hyoscyamine 0.125 MG tabletIndications:Acu te diverticulitis Take 1 tablet by mouth every 4 hours as needed for Spasms 30 tablet 09/30/2019 Active promethazine (PHENERGAN) 25 MG tabletIndications:Acu te diverticulitis Take 1 tablet by mouth every 6 hours as needed for Nausea/Vomiting 20 tablet 10/20/2019 Active ipratropium (ATROVENT) 0.06 % nasal spray [place] 2 sprays into each nostril 3 times [...] (10/31/2019): Scheduled appointment with psychiatric, April 01, [facility] in [place]. Microcytic anemia 07/02/2015 SOB (shortness of breath) [...] Administration Dates Next Due TD VACCINE 09/13/2011 Family History Medical History Relation Name [...] FLEX SIG - COLON CA SCREENING 1972 HIV SCREENING 02/09/1987 HEPATITIS B VACCINE (1 of 3 - 19+ 3-dose series) 02/09/1991 PNEUMOCOCCAL VACCINE 50+ (1 of 2 - PCV) 02/09/1991 PNEUMOCOCCAL VACCINE (1 of 2 - PCV) 02/09/1991 DIABETES-STATIN 2012 DIABETES RETINOPATHY SCREENING 09/01/2019 DIABETES-HGB A1C 01/30/2020 08/01/2019 DIABETES-FOOT EXAM WITH MONOFILAMENT 08/01/2020 08/01/2019 DTAP/TDAP/TD VACCINES (2 - Td or Tdap) 09/13/2021 09/13/2011 ZOSTER VACCINE (1 of 2) 02/09/2022 DIABETES-SERUM CREATININE 11/10/20232022, 11/10/2022, 09/02/2022, Additional history exists COVID-19 VACCINE ( season) 2024 INFLUENZA VACCINE (#1) 2024 DEPRESSION SCREENING 09/13/2024 DIABETES - URINE PROTEIN SCREENING 09/13/2024 10/20/2019 HEPATITIS C SCREENING Completed 10/20/2019 HIB VACCINE Aged Out No longer eligi ble based on patient's age to complete this topic HPV VACCINE Aged Out No longer eligi ble based on patient's age to complete this topic MENINGOCOCCAL (Group B) VACCINE SHARED DECISION-MAKING Aged Out No longer eligible based on patient's age to complete this topic MENINGOCOCCAL GROUPS A/C/Y/W VACCINE Aged Out No longer eligible based on patient's age to complete this topic Procedures Procedure Name Priority Date/Time Associated Diagnosis Comments MICROALB/CREAT RATIO URINE RANDOM PANEL Routine 10/20/2019 2:41 PM TELECOM FIELD TECHNICIAN Type 2 diabetes mellitus without complication, without long-term current use of insulin (HCC) COMPREHENSIVE METABOLIC PANEL Routine 10/20/2019 2:41 PM TELECOM FIELD TECHNICIAN Type 2 diabetes mellitus without complication, without long-term current use of insulin (HCC) Obesity with serious comorbidity, unspecified classification, unspecified obesity type HEPATITIS C AB W RFLX VERIFICATION Routine 10/20/2019 2:41 PM TELECOM FIELD TECHNICIAN Type 2 diabetes mellitus without complication, without [...] AB W RFLX VERIFICATION (10/20/2019 2:41 PM TELECOM FIELD TECHNICIAN) Hepatitis C Antibody <0.1 0.0 - 0.9 s/co ratio 10/21/2019 8:18 AM TELECOM FIELD TECHNICIAN [facility]) Blood BLOOD SPECIMEN / Unknown Lab Venipuncture / Unknown 10/20/2019 2:41 PM TELECOM FIELD TECHNICIAN 10/20/2019 3:01 PM TELECOM FIELD TECHNICIAN Narrative [facility] ([facility]) - 10/21/2019 8:18 AM TELECOM FIELD TECHNICIAN Performed at: 01 - [facility] [place] [address] [place], [place] [id number] Maritime Engineer: Carlos Woods PhD, Phone: [phone] Radha Palafox WORKERS COMPENSATION ADMINISTRATOR-SPACE STUDIES FACULTY MEMBER LAB - CHEMI STRY ORDERABLES [facility] ([facility]) [address] [place] [address], [facility] * (ABNORMAL) MICROALB/CREAT RATIO URINE RANDOM PANEL (10/20/2019 2:41 PM TELECOM FIELD TECHNICIAN) Albumin Random Urine 65.0 Not Established mcg/mL 10/20/2019 4:57 PM [facility] Creatinine Urine 143 Not Established mg/dL 10/20/2019 4:57 PM [facility] Comment: Result obtained by dilution. Urine Albumin/Creati nine Ratio 45(H) <30 mg/g 10/20/2019 4:57 PM [facility] Urine URINE SPECIMEN OBTAINED BY CLEAN CATCH PROCEDURE / Unknown Collection / Unknown 10/20/2019 2:41 PM TELECOM FIELD TECHNICIAN 10/20/2019 3:01 PM TELECOM FIELD TECHNICIAN Radha Palafox WORKERS COMPENSATION ADMINISTRATOR-SPACE STUDIES FACULTY MEMBER LAB - URINE CHEMISTRY ORDERABLES Performing Organization Address City/State/[facility] Co de Phone Number [address] [phone] * (ABNORMAL) COMPREHENSIVE METABOLIC PANEL (10/20/2019 2:41 PM TELECOM FIELD TECHNICIAN) BUN 11 7 - 26 mg/dL 10/20/2019 3:33 PM [facility] Creatinine 0.9 0.6 - 1.2 mg/dL 10/20/2019 3:33 PM [facility] Sodium 142 136 - 145 mmol/L 10/20/2019 3:33 PM [facility] Potassium 3.3(L) 3.5 - 4.5 mmol/L 10/20/2019 3:33 PM [facility] Chloride 104 98 - 107 mmol/L 10/20/2019 3:33 PM [facility] CO2 25 22 - 29 mmol/L 10/20/2019 3:33 PM [facility] Glucose 96 70 - 115 mg/dL 10/20/2019 3:33 PM [facility] Calcium 9.5 8.4 - 10.2 mg/dL 10/20/2019 3:33 PM [facility] Protein Total 8.2 6.0 - 8.3 g/dL 10/20/2019 3:33 PM [facility] Albumin 4.2 3.4 - 5.0 g/dL 10/20/2019 3:33 PM [facility] Bilirubin Total 1.7(H) 0.2 - 1.2 mg/dL 10/20/2019 3:33 PM [facility] Alkaline Phosphatase 75 40 - 150 Units/L 10/20/2019 3:33 PM [facility] ALT 60(H) 0 - 55 Units/L 10/20/2019 3:33 PM [facility] AST 63(H) 5 - 34 Units/L 10/20/2019 3:33 PM [facility] Anion Gap 16 8 - 18 10/20/2019 3:33 PM [facility] BUN/Creatinine Ratio 12 7 - 23 10/20/2019 3:33 PM [facility] Osmolality Calculated 293 270 - 300 mOsm/kg 10/20/2019 3:33 PM [facility] Albumin/Globulin Ratio 1.1 1.1 - 2.3 10/20/2019 3:33 PM [facility] eGFR >60 >60 mL/min/1.7 3 m2 10/20/2019 3:33 PM [facility] Blood BLOOD SPECIMEN / Unknown Lab Venipuncture / Unknown 10/20/2019 2:41 PM TELECOM FIELD TECHNICIAN 10/20/2019 3:01 PM [facility] Radha Palafox APRN-SPACE STUDIES FACULTY MEMBER LAB - CHEMI STRY ORDERABLES [facility] [address] [phone] * HEMOGLOBIN A1C - POINT OF CARE (AMB) U (08/01/2019) Pathologist [facility] Hemoglobin A1c POCT 7.5 BLOOD SPECIMEN / Unknown 08/01/2019 Radha Palafox WORKERS COMPENSATION ADMINISTRATOR-SPACE STUDIES FACULTY MEMBER LAB - POINT OF CARE ORDERABLES from Last 3 Months or Most Recently Relevant to Health Maintenance
--- OUTSIDE RECORDS SUMMARY | 2024-11-27 18:33 | XMS_ITS | Encounter Summary ---
Author Organization [facility] Address [address] [place] [address] Care Team Providers Care Assistant Store Manager Operations Name Role Phone None, Provider Primary Care Provider Unavaila ble Encounter Details Date Type Department Care Team (Late st Contact Info) Description 01/04/2020 Telephone [facility] Care Management [place], [place] [id number] Lee Ann Aguilar LCSW Social History Tobacco Use Types Packs/Day Years [...] documented as of this encounter Care Teams Assistant Store Manager Operations Relationship Specialty Start Date End Date None, Provider, PCP - General 12/31/19 documented as of this encounter
--- OUTSIDE RECORDS SUMMARY | 2024-11-27 18:33 | XMS_ITS | Encounter Summary ---
Author Organization [employer] Address 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 He indicated he had called PCP office [...] on filedocumented in this encounter Care Teams Health Evaluator Relationship Specialty Start Date End Date Howard Trinidad MD PCP - General Family Practice 01/25/16 01/26/16 documented as of this encounter
--- OUTSIDE RECORDS SUMMARY | 2024-11-27 18:33 | XMS_ITS | Encounter Summary ---
Author Organization [employer] Address 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
--- OUTSIDE RECORDS SUMMARY | 2024-11-27 18:33 | XMS_ITS | Clinical Summary ---
Author Organization [facility] Address [address] [place] [address] Phone Care Team Providers Care Cotton Inspector Name Role Phone Unavailable Primary Care [...]
--- OUTSIDE RECORDS SUMMARY | 2024-11-27 18:33 | XMS_ITS | Encounter Summary ---
Author Organization [employer] Address 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
--- OUTSIDE RECORDS SUMMARY | 2024-11-27 18:33 | XMS_ITS | Encounter Summary ---
Author Organization [employer] Address 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 Medications: [facility] review Medication reactions: epic review <<<<<<<< TRIAGE NOTE >>>>>>>> Triage Note: Foiling Machine Operator Seema Cueva added this note on Dec [...] they will have to speak with his business teacher because he is upset with the lies [...] filedocumented in this encounter Care Teams Director Cardiovascular Relationship Specialty Start Date End Date Howard Trinidad MD PCP - General Family Practice 01/25/16 01/26/16 documented as of this encounter
--- OUTSIDE RECORDS SUMMARY | 2024-11-27 18:33 | XMS_ITS | Encounter Summary ---
Author Organization [employer] Address 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
--- OUTSIDE RECORDS SUMMARY | 2024-11-27 18:33 | XMS_ITS | Encounter Summary ---
Author Organization [employer] Address 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
--- OUTSIDE RECORDS SUMMARY | 2024-11-27 18:33 | XMS_ITS | Encounter Summary ---
Author Organization [employer] Address 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
== END 2024-11-27 17:48 | disposition home or self-care (01) ==
PROVIDERS: Emergency Medicine; Emergency Provider Emergency Medicine
DX: K29.70 Gastritis, unspecified, without bleeding (principal); J32.9 Chronic sinusitis, unspecified; Z20.822 Contact with and (suspected) exposure to COVID-19; J45.909 Unspecified asthma, uncomplicated; I25.10 Atherosclerotic heart disease of native coronary artery without angina pectoris; I10 Essential (primary) hypertension; I25.2 Old myocardial infarction; R73.03 Prediabetes; G47.30 Sleep apnea, unspecified; K21.9 Gastro-esophageal reflux disease without esophagitis; F41.9 Anxiety disorder, unspecified; F32.A Depression, unspecified; F43.10 Post-traumatic stress disorder, unspecified; Z98.84 Bariatric surgery status; Z90.49 Acquired absence of other specified parts of digestive tract; Z87.891 Personal history of nicotine dependence; Z79.899 Other long term (current) drug therapy
CPT/HCPCS: 36415; 70450; 71046; 80053; 83690; 84484; 85025; 85610; 85730; 87637; 93005; 99284

== ENCOUNTER 2024-12-18 18:39 | Emergency (ER) | payer OTHER, SELFPAY ==
[2024-12-18 18:44] VITALS: BP 167/89; PULSE 70; RESP 16; TEMP 35.8; O2SAT 100
--- NOTE | 2024-12-18 18:48 | ED_ITS ---
HPI - General Adult General Chief complaint: Unspecified Stated complaint: Cough Time Seen by Provider: 12/18/24 18:40 Source: patient Mode of arrival: ambulatory Limitations: no limitations History of Present Illness HPI narrative: Carlos is a 54-year-old male patient presenting to the clinic today with complaints of cough/GERD. States that his primary care doctor has not prescribed him the omeprazole and told him to take it [id number]. He does not want to by the [id number] omeprazole as it does not act as well as the prescription. Related Data Home Medications ?Medication ?Instructions ?Recorded ?Confirmed ?Last Taken ?Type potassium chloride 10 mEq 10 meq PO DAILY 06/09/23 07/26/24 08/18/24 History tablet,extended release omeprazole 40 mg capsule,delayed 40 mg PO DAILY 04/22/24 08/29/24 08/18/24 History release atenolol 50 mg tablet 50 mg PO Q24H 08/29/24 08/29/24 Unknown History Allergies Allergy/AdvReac Type Severity Reaction Status Date / Time Iodinated Contrast Media Allergy Severe Anaphylaxis Verified 11/27/24 17:51 metformin Allergy Severe Stopped Verified 11/27/24 17:51 Breathing Sulfa (Sulfonamide Allergy Severe Anaphylaxis Verified 11/27/24 17:51 Antibiotics) sulfamethoxazole Allergy Severe Anaphylaxis Verified 11/27/24 17:51 famotidine Allergy Intermediate Hives Verified 11/27/24 17:51 losartan Allergy Intermediate SWLLEING Verified 11/27/24 17:51 LIP AND HIVES nebivolol Allergy Intermediate LIP Verified 11/27/24 17:51 SWELLING Quinolones Allergy Intermediate Nervousness Verified 11/27/24 17:51 valsartan Allergy Intermediate HIVES/SOB Verified 11/27/24 17:51 amlodipine Allergy Mild HIVES Verified 11/27/24 17:51 azithromycin Allergy Mild Nervousness Verified 11/27/24 17:51 pantoprazole Allergy Mild Hives Verified 11/27/24 17:51 spironolactone Allergy Mild RASH AND Verified 11/27/24 17:51 ITCHING trimethoprim Allergy Mild RASH Verified 11/27/24 17:51 morphine Allergy Unknown Verified 11/27/24 17:51 cephalexin AdvReac Mild Nervousness Verified 11/27/24 17:51 flavoxate AdvReac Mild Nervousness Verified 11/27/24 17:51 levofloxacin AdvReac Mild Nervousness Verified 11/27/24 17:51 lidocaine AdvReac Mild Nervousness Verified 11/27/24 17:51 lisinopril AdvReac Mild Nervousness Verified 11/27/24 17:51 nitrofurantoin AdvReac Mild Nervousness Verified 11/27/24 17:51 oxycodone AdvReac Mild Nervousness Verified 11/27/24 17:51 paroxetine AdvReac Mild Nervousness Verified 11/27/24 17:51 Review of Systems Review of Systems: Pertinent positives per HPI. Patient denies any fever, chills, rash, headache, visual changes, dizziness, runny nose, sore throat, shortness of breath, chest pain, palpitations, nausea, vomiting, diarrhea, constipation, abdominal pain, or any urinary issues. [facility] Past Medical History Medical History Prediabetes Allergic rhinitis Chronic sinusitis Chronic post-traumatic stress disorder (PTSD) Anxiety Depression GERD (gastroesophageal reflux disease) Sleep apnea Asthma HTN (hypertension) CAD (coronary artery disease) history OR Concussion Surgical History Surgical History H/O gastric bypass Hx of cholecystectomy History of cardiac cath History of colonoscopy Family History Family History Grandparent Family history of obesity Hypertension Diabetes mellitus Mother Depression Patient's mother is in good health Family history of mental disorder Father Hypertension Patient's father is in good health Family history of alcoholism Cerebrovascular accident Sibling Patient's sister is in good health Patient's brother is in good health Father Cerebrovascular accident Alcoholism Hypertension Heart disease Mother Family history of malignant neoplasm Depression Hypertension Other Family history of cardiovascular disease Social History Social History Smoking status: Former smoker Smoking end date: 09/13/95 Alcohol intake: former Substance use: never Substance use type: opiates Lack of Transportation: No Lack of Food: Never True Current Housing: I Have Housing Concerned About Future Housing: No Difficulty Paying Gas/Electric Bills: No Difficulty Paying for Meds: No Currently Unemployed: No Education: Master's Degree or Higher Difficulty w/ Childcare or Family Care: No Living arrangements: alone Occupation/Education: occupation Gender identity (if verbalized by the patient): Male Sexual Orientation (if Verbalized by the Patient): Straight or Heterosexual Spiritual care concerns: No Comments At the time of my signature, I reviewed and agree with the nursing past medical, surgical, social, and family history. There is no relevant family history pertinent to the patient complaint. Exam Narrative: General: Well-developed, well nourished, in no apparent distress Head: Normocephalic, atraumatic Eyes: Pupils equally round and reactive to light bilaterally, EOM intact, sclera and conjunctive clear, no discharge, lids normal Ears: TMs intact and clear, ear canals clear, no drainage, grossly hearing normal. Nose: Nares patent, no discharge, no inflammation, no sinus tenderness. Mouth: Oropharynx without lesions or masses, good dentition, MMM. Neck: Supple, trachea midline, no enlargement of anterior or posterior cervical nodes, no thyroid masses or goiter palpable. Cardio: Regular rate and rhythm, s1 and s2 normal, no murmur appreciated. Resp: Clear to auscultation bilaterally anteriorly and posteriorly, no rhonchi, rales, wheezing or rubs Course Course Emergency Course: Portions of this record may have been created with voice recognition software. Level of Care: Express Care Visit Vital Signs Vital signs: Vital signs reviewed Medical Decision Making MDM Narrative Medical decision making narrative: At the time of visit patient is resting comfortably on the exam table. Patient appears to be nontoxic. Plan: I suspect patient has chronic GERD/cough. Prescription for omeprazole was sent to the pharmacy per patient's request. Supportive measures were discussed with the patient and they voiced understanding discharge instructions and agrees to treatment plan. Return precautions reviewed Differential Diagnosis Differential Diagnosis: GERD, cough, encounter for medication refill Discharge Plan Discharge Clinical Impression: Chronic GERD, Cough, Encounter for medication refill Patient Disposition: Home Condition: Stable Instructions: Antibiotic Form, Diet for Stomach Ulcers and Gastritis (ED), GERD (Gastroesophageal Reflux Disease) (ED) Additional Instructions: Take omeprazole as prescribed Increase fluids and stay well hydrated Avoid eating spicy or fatty foods, chocolate, or drinking caffeine. Avoid foods that cause you to feel bloated. Stop smoking Lose weight/exercise Stay upright for at least 30 minutes after eating. May use tums for immediate relief Take medications only as prescribed. Follow up with your PCP in 3-5 days if symptoms persist. Patient Language: Mauritian Prescriptions: New omeprazole 40 mg capsule,delayed release(DR/EC) 40 mg PO DAILY 30 Days Qty: 30 0RF No Action potassium chloride 10 mEq tablet extended release 10 meq PO DAILY omeprazole 40 mg capsule,delayed release(DR/EC) 40 mg PO DAILY atenolol 50 mg tablet 50 mg PO Q24H Patient Comments: PT STATES HE IS NOW TAKING 100MG PO DAULY omeprazole 40 mg capsule,delayed release(DR/EC) 40 mg PO DAILY 30 Days Qty: 30 0RF atenolol 100 mg tablet 100 mg PO DAILY 30 Days Qty: 30 0RF albuterol sulfate 90 mcg/actuation HFA aerosol inhaler 2 puff inhalation Q4-6H PRN (Reason: shortness of breath or wheezing) 30 Days Qty: 8.5 0RF fluticasone propionate [Flonase Allergy Relief] 50 mcg/actuation spray,suspension 1 spray intranasal BID Qty: 16 0RF Rx Instructions: administer into each nostril (DME) Aerochamber Plus Z Stat Spacer See Rx Instructions .Route Qty: 1 0RF Rx Instructions: As directed omeprazole 40 mg capsule,delayed release(DR/EC) 40 mg PO DAILY Qty: 30 0RF atenolol 100 mg tablet 100 mg PO DAILY Qty: 30 0RF omeprazole 40 mg capsule,delayed release(DR/EC) 40 mg PO DAILY Qty: 30 0RF atenolol 100 mg tablet 100 mg PO DAILY Qty: 30 0RF methylprednisolone [Medrol (Vega)] 4 mg tablets,dose pack See Rx Instructions PO .COMPLEX Qty: 21 0RF Rx Instructions: orally per package directions fluticasone propionate [24 Hour Allergy Relief] 50 mcg/actuation spray,suspension 2 spray intranasal DAILY Qty: 16 0RF Rx Instructions: administer into each nostril omeprazole 20 mg capsule,delayed release(DR/EC) 40 mg PO DAILY 14 Days Qty: 28 0RF cyclobenzaprine 10 mg tablet 10 mg PO BID PRN (Reason: muscle spasm) Qty: 14 0RF ferrous sulfate 325 mg (65 mg iron) tablet 325 mg PO DAILY Qty: 90 1RF escitalopram oxalate [Lexapro] 20 mg tablet 20 mg PO DAILY Qty: 30 5RF Follow-up/Referrals: PHYSICIAN,NURSE INFORMATICS EDUCATOR [Primary Care Provider] - Time of Disposition: 18:59 Quality NIHSS Nursing Documentation ED NIHSS nursing documentation: reviewed/agree
== END 2024-12-18 19:04 | disposition home or self-care (01) ==
PROVIDERS: Emergency Provider Nurse Practitioner Family
DX: K21.9 Gastro-esophageal reflux disease without esophagitis (principal); R05.9 Cough, unspecified; R73.03 Prediabetes; I10 Essential (primary) hypertension; I25.10 Atherosclerotic heart disease of native coronary artery without angina pectoris; I25.2 Old myocardial infarction; J45.909 Unspecified asthma, uncomplicated; F41.9 Anxiety disorder, unspecified; F32.A Depression, unspecified; Z87.891 Personal history of nicotine dependence; Z98.84 Bariatric surgery status
CPT/HCPCS: 99211; 99213; G0463

== ENCOUNTER 2024-12-24 18:27 | Emergency (ER) | payer OTHER, SELFPAY ==
--- NOTE | ~2024-12-24 | XR_ITS ---
EXAMINATION: XR chest 1V Exam Date/Time: 12/24/2024 20:02 CDT HISTORY: chest pain Comparison: 11/27/2024. RESULT: Lines, tubes, and devices: None. Lungs and pleura: Clear. Cardiomediastinal silhouette: Stable. Other: No acute osseous or upper abdominal finding. IMPRESSION: No acute cardiopulmonary process. Reviewed, dictated and finalized at location K.
--- NOTE | ~2024-12-24 | CT_ITS ---
EXAMINATION: CT abdomen pelvis wo con DATE: 12/24/2024 20:08 INDICATION: abdominal pain TECHNIQUE: Computed tomography (CT) of the abdomen and pelvis was performed without intravenous contr ast. Automated exposure control and iterative reconstruction technique were employed. The dose-length product was 1473.87 mGy-cm. COMPARISON: 06/03/2024. FINDINGS: Lower thorax: Unremarkable Liver: Diffusely low-density parenchyma. Enlarged. Biliary/Gallbladder: Gallbladder is absent. No bile duct dilation. Pancreas: No mass or duct dilation. Spleen: Enlarged Adrenals:No mass. Kidneys: Subcentimeter exophytic left lower pole lesion, too small to characterize. Multiple punctate nonobstructing bilateral calculi. No hydronephrosis GI tract: No small bowel dilation. Persistent 6.5 cm long segment of proximal sigmoid colon with sign ificant wall thickening, luminal narrowing, as well as apparent shouldering of the proximal and dista l margins. Moderate wall thickening in the immediate upstream descending colon, with dilation and int raluminal fecal material. No pneumatosis. Mild pericolonic inflammatory changes in the regions of thi ckening. Normal appendix. Mesentery/Peritoneum: No ascites, mass, or free air. Retroperitoneum: No mass. Pelvis: The urinary bladder is tented and elongated superiorly and abuts the region of sigmoid wall t hickening/mass, with no intervening fat plane. Soft Tissues: Moderate fat-containing uncomplicated bilateral inguinal hernias. Small uncomplicated f at-containing umbilical hernia. Bones: No acute osseous finding. IMPRESSION: Hepatic steatosis and hepatosplenomegaly. Chronic proximal sigmoid colitis, with upstream dilation and wall thickening that may represent parti al obstruction, with early stercoral colitis. Inflammatory, infectious, ischemic, and neoplastic etio logies should remain in the differential. Urinary bladder abuts the area of sigmoid mass/thickening indicating possible urinary bladder involve ment. Developing colovesicular fistula is not excluded. Reviewed, dictated and finalized at location K. IMPRESSION: Hepatic steatosis and hepatosplenomegaly. Chronic proximal sigmoid colitis, with upstream dilation and wall thickening th at may represent partial obstruction, with early stercoral colitis. Inflammator y, infectious, ischemic, and neoplastic etiologies should remain in the differe ntial. Urinary bladder abuts the area of sigmoid mass/thickening indicating possible u rinary bladder involvement. Developing colovesicular fistula is not excluded.
--- OUTSIDE RECORDS SUMMARY | 2024-12-24 18:30 | XMS_ITS | Encounter Summary ---
Author Organization [facility] Facility Care Team Providers Care Blood Bank Assistant Name Role Phone No, Physician Primary Care Provider [phone] Cata Clifton NP Primary Care Provider [phone] No, Physician Primary Care Provider [phone] Miscellaneous, Not In File Primary Care Provider Unavailable Jagdeep Sanford DO Primary Care Provider [phone] Miscellaneous, Not In File Unavailable Unava Charanjit Wilburn MD Primary Care Provider [phone] Carlos Gamboa MD Primary Care Provid er Unknown, Notinfile Primary Care Provider Unavail able No, Physician Primary Care Provider Unknown, Notinfile Primary Care Provider Unavail able No, Physician Primary Care Provider [phone] Unknown, Notinfile Primary Care Provider Unavail able Adin Lino MD Primary Care Provider + Unknown, Notinfile Primary Care Provider Unavail able Encounter Details Date Type Department Care Team (Latest Contact Info) Description 06/23/2018 Orders Only [facility] ProviderRachael MD [address] [place] [id number] Social History Tobacco Use Types Packs/Day Years Used Date Smoking Tobacco: Former Smokeless Tobacco: Never Alcohol Use Standard Drinks/Week Comments No 0 (1 standard drink = 0.6 oz pur e alcohol) Sex and Gender Information Value Date Recorded Sex Assigned at Not on file Legal Sex Male 1:40 AM [employer] CD[employer] Gender Identity Not on file Sexual [...] COVID: Suspected 10/11/2023 10/11/2023 10/11/2023 5:30 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 COVID: Suspected 10/22/2024 10/22/2024 10/22/2024 5:53 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 Influenza, adult 10/22/2024 10/22/2024 10/29/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 Care Teams Blood Bank Assistant Relationship Specialty Start Date End Date No, Physician PCP - General 09/15/17 03/16/19 Cata Clifton NP PCP - General 03/17/19 11/04/19 No, Physician PCP - General 11/05/19 11/11/19 Miscellaneous, Not In File PCP - General 11/12/19 0 Jagdeep Sanford DO [address] [place] [id number] PCP - General Family Medicine 11/16/19 01/20/20 Charanjit Sheffield MD [address] [place] [id number] PCP - General 01/21/20 09/29/20 Carlos Gamboa MD [address] [place] [address] PCP - General Family Medicine 09/30/20 05/07/21 Unknown, Notinfile PCP - General 05/08/21 11/26/21 No, Physician PCP - General 11/27/21 01/13/23 Unknown, Notinfile PCP - General 01/14/23 01/17/24 No, Physician PCP - General 01/18/24 04/21/24 Unknown, Notinfile PCP - General 04/22/24 07/30/24 Adin Lino MD [address] [place] [id number] PCP - General Internal Medicine 07/31/24 07/31/24 Unknown, Notinfile PCP - General 08/01/24 Miscellaneous, Not In File 11/16/19 documented as of this encounter
--- OUTSIDE RECORDS SUMMARY | 2024-12-24 18:30 | XMS_ITS | Referral Summary ---
Author Organization [facility] [address] [place] [id number] Care Team Providers Care Commercial Lease Administrator Name Role Phone Miscellaneous, Not In File Unavailable Unava ilable Unknown, Notinfile Primary Care Provider Unavail able Encounters Date Type Department Care Team Description 10/24/2024 Telephone [facility] Gastroenterology at [address] [place] [address] Jd Mayes MD 10/22/2024 6:32 PM [facility] - 10/22/2024 8:51 PM [facility] Emergency [facility] Emergency Department [address] [place] [id number] Influenza A (Primary Dx); Acute otitis media, unspecified otitis media type Discharge Disposition: Discharge to home or self care 10/13/2024 11:47 AM [facility] - 10/13/2024 2:14 PM [facility] Emergency Department [address] [place] [id number] Diverticulitis (Primary Dx); UTI symptoms Discharge Disposition: Discharge to home or self care 10/02/2024 4:18 AM SOFTWARE QUALITY ASSURANCE ENGINEER - 10/02/2024 5:02 AM [facility] Emergency [facility] Emergency Department [address] [place] [address] John Mckeon MD Generalized anxiety disorder (Primary Dx) Discharge Disposition: Discharge to home or self care 10/01/2024 11:06 PM [facility] - 10/02/2024 3:37 AM [facility] Emergency [facility] Emergency Department [address] [address] Discharge Disposition: Left without being seen from [...] 2 liters (half) of 1st jug of nulyteTribotek. Then on the day before your test [...] pain and frequency. -See either PCP or litigation legal assistant to manage diabetes. -I told patient that if he fails this, we may need to look at further testing for penile pain. Patient verbalized understanding. OAB (overactive bladder) 11/09/2020 Assessment & Plan (11/13/2020 6:03 PM SOFTWARE QUALITY ASSURANCE ENGINEER): -Symptoms are suggestive of OAB. Prostate size [...] 11/09/2020 Assessment & Plan (11/09/2020 5:21 PM SOFTWARE QUALITY ASSURANCE ENGINEER): -Patient has history of diverticulitis, benign tumor [...] appointment. Assessment & Plan (11/09/2020 5:20 PM SOFTWARE QUALITY ASSURANCE ENGINEER): -CT showing non-obstructing stones in kidney. Patient [...] 0 Assessment & Plan (11/16/2019 4:14 PM SOFTWARE QUALITY ASSURANCE ENGINEER): Old psychiatrist, Dr Easley, in [place]. Rx'ed [...] 11/16/2019 Assessment & Plan (11/16/2019 4:11 PM SOFTWARE QUALITY ASSURANCE ENGINEER): Not taking meds as prescribed. Pt asked to leave before A1C could be tested. Severe obesity (BMI 35.0-35.9 with comorbidity) 11/16/2019 Assessment & Plan (11/16/2019 4:14 PM SOFTWARE QUALITY ASSURANCE ENGINEER): Body mass index is 35.12 kg/m . Unable to preparole counseling aide him given that he was escorted out. [...] (03/12/2017): Scheduled appointment with psychiatric, April 01, [facility] in [place]. Anxiety 03/12/2017 Obesity (BMI 30-39.9) 03/12/2017 Benzodiazepine [...] 11/09/2020 Assessment & Plan (11/16/2019 3:59 PM SOFTWARE QUALITY ASSURANCE ENGINEER): Severe with h/o panic attacks with xanax [...] he wasn't able to see patients at [facility] because he got fired from [...] Legal Sex Male 1:40 AM SOFTWARE QUALITY ASSURANCE ENGINEER Gender Identity Not on file Sexual Orientation Not on file Last Filed Vital Signs Vital Sign Reading Time Taken Comments Blood Pressure 143/89 10/22/2024 8:25 PM SOFTWARE QUALITY ASSURANCE ENGINEER Pulse 73 10/22/2024 8:25 PM SOFTWARE QUALITY ASSURANCE ENGINEER Temperature 37.2 C (99 F) 10/22/2024 4:46 PM SOFTWARE QUALITY ASSURANCE ENGINEER Respiratory Rate 16 10/22/2024 8:25 PM SOFTWARE QUALITY ASSURANCE ENGINEER Oxygen Saturation 99% 10/22/2024 8:25 PM SOFTWARE QUALITY ASSURANCE ENGINEER Inhaled Oxygen Concentration - - Weight 120.1 kg (264 lb 12.4 oz) 10/22/2024 4:46 PM SOFTWARE QUALITY ASSURANCE ENGINEER Height 188 cm (6' 2 ) 10/22/2024 4:46 PM SOFTWARE QUALITY ASSURANCE ENGINEER Body Mass Index 33.99 10/22/2024 4:46 PM SOFTWARE QUALITY ASSURANCE ENGINEER Plan of Treatment Scheduled Procedures Name Priority Associated Diagnoses Date/Ti me COLONOSCOPY Open Access Diverticulitis Procedures Procedure Name Priority Date/Time Associated Diagnosis Comments XR CHEST PA LATERAL 2 VIEWS ED 10/22/2024 5:05 PM SOFTWARE QUALITY ASSURANCE ENGINEER URINALYSIS, MICROSCOPIC ONLY STAT 10/22/2024 5:01 PM SOFTWARE QUALITY ASSURANCE ENGINEER URINALYSIS AND REFLEX TO MICROSCOPIC AND CULTURE STAT 10/22/2024 5:01 PM SOFTWARE QUALITY ASSURANCE ENGINEER INFLUENZA A/B, RSV, AND COVID-19 PCR STAT 10/22/2024 4:59 PM SOFTWARE QUALITY ASSURANCE ENGINEER CT ABDOMEN PELVIS WO CONTRAST ED 10/13/2024 12:25 PM SOFTWARE QUALITY ASSURANCE ENGINEER URINALYSIS, MICROSCOPIC ONLY STAT 10/13/2024 10:13 AM SOFTWARE QUALITY ASSURANCE ENGINEER URINALYSIS AND REFLEX TO MICROSCOPIC AND CULTURE STAT 10/13/2024 10:13 AM SOFTWARE QUALITY ASSURANCE ENGINEER EGFR STAT 10/13/2024 10:11 AM SOFTWARE QUALITY ASSURANCE ENGINEER DIFFERENTIAL AUTO STAT 10/13/2024 10: 11 AM SOFTWARE QUALITY ASSURANCE ENGINEER LIPASE STAT 10/13/2024 10:11 AM SOFTWARE QUALITY ASSURANCE ENGINEER COMPREHENSIVE METABOLIC PANEL STAT 10/13/2024 10:11 AM SOFTWARE QUALITY ASSURANCE ENGINEER CBC WITH AUTO DIFFERENTIAL STAT 10/13/2024 10:11 AM SOFTWARE QUALITY ASSURANCE ENGINEER ECG 12-LEAD STAT 10/13/2024 10:05 AM SOFTWARE QUALITY ASSURANCE ENGINEER HEMOGLOBIN A1C Routine 01/22/2020 9:58 AM CDT LIPID PANEL Routine 01/22/2020 9:58 AM CDT COLONOSCOPY REPORT 07/01/2017 from Last 3 Months or Most Recently Relevant to Health Maintenance Results * XR Chest PA Lateral 2 Views (10/22/2024 5:05 PM SOFTWARE QUALITY ASSURANCE ENGINEER) Anatomical Region Laterality Modality Body, Chest N/A Computed Radiogr aphy 10/22/2024 5:38 PM SOFTWARE QUALITY ASSURANCE ENGINEER Narrative 10/22/2024 5:38 PM SOFTWARE QUALITY ASSURANCE ENGINEER EXAM DESCRIPTION: XR CHEST PA LATERAL 2 [...] Dave Kat M.D. KT: KT Report ID: [id number] Reading Location: [id number] Procedure Note Dave Kat MD - 10/22/2024 [...] Dave Kat M.D. KT: SARTHAK Report ID: [id number] Reading Location: [place] [address] us Jhoana Potts DIRECTOR OF INDIVIDUAL GIVING IMG XR PROCEDURES Final Resul t * (ABNORMAL) Urinalysis reflex to microscopic and culture Urine, clean voided (10/22/2024 5:01 PM SOFTWARE QUALITY ASSURANCE ENGINEER) Color, ur Yellow Yellow Comment:Testing performed by : [address] [address] Clarity, ur Clear Clear VAL Comment:Testing performed by : [address] [address] Specific gravity, ur 1.009 1.003 - 1.030 VAL Comment:Testing performed by : [address] [address] pH, urine 6.5 VAL Comment: Interpretive Data U rine pH is affected by diet, medications, systemic acid-base disturbances, and renal tubular function. pH may affect urinary stone formation. For example, urine pH below 6.0 may help reduce the tendency for calcium phosphate stones and pH greater than 6.0 may reduce the tendency for uric acid stone formation. Source: [employer] Current Interpretive Data was last revised on 2017 Testing performed by: [address] [address] Protein, ur ql Trace(A) Negative VAL Comment:Testing performed by : [address], [place]., [address] Glucose, ur ql Negative Negative VAL MULLER Comment:Testing performed by : [address], [place]., [address] Ketones, ur Negative Negative VAL MULLER Comment:Testing performed by : [address], [place]., [address] Bilirubin, ur Negative Negative VAL MULLER Comment:Testing performed by : [address], [place]., [address] Blood, ur Negative Negative VAL Comment:Testing performed by : [address], [place]., [address] Urobilinogen, ur <2.0 <2.0 mg/dL VAL MULLER Comment:Testing performed by : [address], [place]., [address] Nitrite, ur Negative Negative VAL Comment:Testing performed by : [address], [place]., [address] Leukocyte esterase, ur Negative Negative VAL Comment:Testing performed by : [address], [place]., [address] UA reflex comment Reflex to microscopic UA will be performed. VAL MULLER Comment:Testing performed by : [address], [place]., [address] Urine, clean voided 10/22/2024 5:01 PM SOFTWARE QUALITY ASSURANCE ENGINEER 10/22/2024 5:06 PM SOFTWARE QUALITY ASSURANCE ENGINEER Jhoana Potts NP LAB MICROBIOLOGY - GENERAL OR DERABLES Final Result VAL MULLER [address] [facility] Department [place] [address] * Urinalysis, microscopic only (10/22/2024 5:01 PM SOFTWARE QUALITY ASSURANCE ENGINEER) WBC, ur 0-5 0 - 5 /HPF Comment:Testing performed by : [address], [place]., [address] RBC, ur 0-2 0 - 2 /HPF VAL MULLER Comment:Testing performed by : [address] [address] Culture Reflex Comment Reflex conditions for urine culture (WBC >10) not met. VAL Comment:Testing performed by : [address] [address] Urine, clean voided 10/22/2024 5:01 PM SOFTWARE QUALITY ASSURANCE ENGINEER 10/22/2024 5:06 PM SOFTWARE QUALITY ASSURANCE ENGINEER Jhoana Potts LAB URINE ORDERABLES Final Re sult VAL 45[address] [facility] Department [place] [address] * (ABNORMAL) Influenza A/B, RSV, and COVID-19 PCR Nasopharyngeal (10/22/2024 4:59 PM SOFTWARE QUALITY ASSURANCE ENGINEER) COVID-19 RNA Negative Negative Comment:Testing performed by : [address] [address] Influenza A RNA Positive(A) Negative VAL Comment:Testing performed by : [address] [address] Influenza B RNA Negative Negative VAL Comment:Testing performed by : [address] [address] RSV RNA Negative Negative VAL Comment: Interpretive data: Testing performed by [facility]. This test is performed using the [employer] Xpert Xpress CoV-2/Flu/RSV plus assay. This is a multiplex, real-time reverse transcriptase PCR assay intended for the qualitative detection of nucleic acid from SARS-CoV-2, influenza A, influenza B, and respiratory syncytial virus. This assay has been cleared by the [place] Food and Drug administration. The performance characteristics have been verified by the [facility]. Results must be considered in the clinical context, and a negative result does not rule out infection. Interpretive Data last revised 2023 Testing performed by: [address] [address] Nasopharyngeal 10/22/2024 4: 59 PM SOFTWARE QUALITY ASSURANCE ENGINEER 10/22/2024 5:05 PM SOFTWARE QUALITY ASSURANCE ENGINEER Narrative VAL MULLER - 10/22/2024 5:52 PM SOFTWARE QUALITY ASSURANCE ENGINEER Is the Patient experiencing symptoms consistent with COVID?->Yes Jhoana Potts NP LAB MICROBIOLOGY - GENERAL OR DERABLES Final Result VAL MULLER [address] [facility] Department [place] [address] * CT Abdomen Pelvis WO Contrast (10/13/2024 12:25 PM SOFTWARE QUALITY ASSURANCE ENGINEER) Anatomical Region Laterality Modality Body N/A Computed Tomogra phy 10/13/2024 12:5 0 PM SOFTWARE QUALITY ASSURANCE ENGINEER Narrative 10/13/2024 1:08 PM SOFTWARE QUALITY ASSURANCE ENGINEER EXAM DESCRIPTION: CT ABDOMEN PELVIS WO CONTRAST [...] Dave Benavides M.D. KR: INDIO Report ID: [id number] Reading Location: [id number] Procedure Note Dave Benavides MD - 10/13/2024 [...] Dave Benavides M.D. KR: INDIO Report ID: [id number] Reading Location: [place] [address] PROCEDURES Final Result * (ABNORMAL) Urinalysis reflex to microscopic and culture Urine (10/13/2024 10:13 AM SOFTWARE QUALITY ASSURANCE ENGINEER) Color, ur Yellow Yellow Comment:Testing performed by : [address] [address] Clarity, ur Clear Clear VAL MULLER Comment:Testing performed by : [address] [address] Specific gravity, ur 1.032(H) 1.003 - 1.030 VAL MULLER Comment:Testing performed by : [address] [address] pH, urine 5.5 VAL Comment: Interpretive Data U rine pH is affected by diet, medications, systemic acid-base disturbances, and renal tubular function. pH may affect urinary stone formation. For example, urine pH below 6.0 may help reduce the tendency for calcium phosphate stones and pH greater than 6.0 may reduce the tendency for uric acid stone formation. Source: [facility] [employer] Current Interpretive Data was last revised on 2017 Testing performed by: [facility], [address] [place] [address], [place]., [address] Protein, ur ql Trace(A) Negative VAL Comment:Testing performed by : [address] [address] Glucose, ur ql Negative Negative VAL Comment:Testing performed by : [address], [place]., [address] Ketones, ur 1+(A) Negative VAL Comment:Testing performed by : [address] [address] Bilirubin, ur Negative Negative VAL Comment:Testing performed by : [address], [place]., [address] Blood, ur Negative Negative VAL Comment:Testing performed by : [address] [address] Urobilinogen, ur 2.0(A) <2.0 mg/dL VAL Comment:Testing performed by : [address] [address] Nitrite, ur Negative Negative VAL Comment:Testing performed by : [address] [address] Leukocyte esterase, ur 2+(A) Negative VAL Comment:Testing performed by : [address] [address] UA reflex comment Reflex to microscopic UA will be performed. VAL Comment:Testing performed by : [address], [place]., [address] Urine 10/13/2024 10:1 3 AM SOFTWARE QUALITY ASSURANCE ENGINEER 10/13/2024 10:24 AM SOFTWARE QUALITY ASSURANCE ENGINEER Miguel Stokes DO LAB MICROBIOLOGY - GENERAL ORDERABLES Final Result Performing Organization Address [facility] de Phone Number VAL [address] [facility] [place] [address] * (ABNORMAL) Urinalysis, microscopic only (10/13/2024 10:13 AM SOFTWARE QUALITY ASSURANCE ENGINEER) WBC, ur 0-5 0 - 5 /HPF Comment:Testing performed by : [facility], [address] [place] [address]., [address] RBC, ur 0-2 0 - 2 /HPF VAL Comment:Testing performed by : [address] [address] Epithelial cells, squamous, ur 1-5 0 - 5 /HPF VAL Comment:Testing performed by : [address] [address] Mucous, ur Present(A) VAL Comment:Testing performed by : [facility], [address] [place] [address]., [address] Hyaline casts, ur 1-5 0 - 10 /LPF VAL Comment:Testing performed by : [address] [address] Culture Reflex Comment Reflex conditions for urine culture (WBC >10) not met. VAL Comment:Testing performed by : [address] [address] Urine 10/13/2024 10:1 3 AM SOFTWARE QUALITY ASSURANCE ENGINEER 10/13/2024 10:24 AM SOFTWARE QUALITY ASSURANCE ENGINEER Miguel Stokes DO LAB URINE ORDERABLES Final Result Performing Organization Address City/[facility] Co de Phone Number VAL [address] [facility] [place] [address] * eGFR (10/13/2024 10:11 AM SOFTWARE QUALITY ASSURANCE ENGINEER) eGFR >90 >=60 mL/min/1. 73 m2 Comment: [...] last reviewed 2021. Testing performed by: [address] [address] Blood 10/13/2024 10:1 1 AM SOFTWARE QUALITY ASSURANCE ENGINEER 10/13/2024 10:24 AM SOFTWARE QUALITY ASSURANCE ENGINEER Miguel Stokes DO LAB BLOOD ORDERABLES Final Result [facility] [address] [facility] Department [place] [address] * Differential, auto (10/13/2024 10:11 AM SOFTWARE QUALITY ASSURANCE ENGINEER) Neutrophil abs 3.0 1.5 - 6.5 K/cumm Comment:Testing performed by : [address] [address] Imm gran abs 0.0 0.0 - 0.1 K/cumm VAL Comment:Testing performed by : [address] [address] Lymphocyte abs 1.2 0.8 - 3.3 K/cumm VAL Comment:Testing performed by : [address] [address] Monocyte abs 0.3 0.2 - 0.8 K/cumm VAL Comment:Testing performed by : [address] [address] Eosinophil abs 0.1 0.0 - 0.5 K/cumm [facility] Comment:Testing performed by : [address] [address] Basophil abs 0.0 0.0 - 0.1 K/cumm [facility] Comment:Testing performed by : [address] [address] Neutrophil pct 64.6 % [facility] Comment: Interpretive Data Percent cell count reference ranges are not reported, since discordance with absolute values may lead to misinterpretation of CBC data. Current Interpretive Data was last revised on 2017. Testing performed by: [address] [address] Imm gran pct 0.2 % [facility] Comment: Interpretive Data Percent cell count reference ranges are not reported, since discordance with absolute values may lead to misinterpretation of CBC data. Current Interpretive Data was last revised on 2017. Testing performed by: [address] [address] Lymphocyte pct 25.9 % [facility] Comment: Interpretive Data Percent cell count reference ranges are not reported, since discordance with absolute values may lead to misinterpretation of CBC data. Current Interpretive Data was last revised on 2017. Testing performed by: [address] [address] Monocyte pct 5.9 % [facility] Comment: Interpretive Data Percent cell count reference ranges are not reported, since discordance with absolute values may lead to misinterpretation of CBC data. Current Interpretive Data was last revised on 2017. Testing performed by: [address] [address] Eosinophil pct 2.8 % [facility] Comment: Interpretive Data Percent cell count reference ranges are not reported, since discordance with absolute values may lead to misinterpretation of CBC data. Current Interpretive Data was last revised on 2017. Testing performed by: [address] [address] Basophil pct 0.6 % [facility] Comment: Interpretive Data Percent cell count reference ranges are not reported, since discordance with absolute values may lead to misinterpretation of CBC data. Current Interpretive Data was last revised on 2017. Testing performed by: [address] [address] Blood 10/13/2024 10:1 1 AM SOFTWARE QUALITY ASSURANCE ENGINEER 10/13/2024 10:24 AM SOFTWARE QUALITY ASSURANCE ENGINEER Miguel Stokes DO LAB BLOOD ORDERABLES Final Result [facility] [place] [address] [facility] Department [place] [address] * (ABNORMAL) CBC with auto differential (10/13/2024 10:11 AM SOFTWARE QUALITY ASSURANCE ENGINEER) WBC 4.7 3.8 - 9.9 K/cumm Comment:Testing performed by : [address] [address] Hgb 11.2(L) 13.0 - 17.5 g/dL VAL Comment:Testing performed by : [address] [address] Hct 38.0(L) 38.9 - 50.3 % VAL Comment:Testing performed by : [address] [address] Plt 226 150 - 400 K/cumm VAL Comment:Testing performed by : [address] [address] MPV 8.9(L) 9.1 - 12.3 fL VAL Comment:Testing performed by : [address] [address] RBC 5.59 4.30 - 5.80 M/cumm VAL Comment:Testing performed by : [address] [address] MCV 68.0(L) 81.3 - 96.4 fL VAL Comment:Testing performed by : [address] [address] MCH 20.0(L) 27.1 - 33.3 pg VAL MULLER Comment:Testing performed by : [address] [address] MCHC 29.5(L) 32.3 - 35.7 g/dL VAL MULLER Comment:Testing performed by : [address] [address] RDW CV 19.8(H) 11.1 - 14.9 % VAL MULLER Comment:Testing performed by : [address] [address] RDW SD 45.5 35.7 - 48.1 fL VAL Comment:Testing performed by : [address] [address] NRBC abs 0.00 0.00 - 0.01 K/cumm VAL Comment:Testing performed by : [address], [address] Blood Venous blood specimen / Unknown 10/13/2024 10:11 AM SOFTWARE QUALITY ASSURANCE ENGINEER 10/13/2024 10:24 AM SOFTWARE QUALITY ASSURANCE ENGINEER Miguel Stokes DO LAB BLOOD ORDERABLES Final Result [address] [employer] [place] [address] * Lipase (10/13/2024 10:11 AM SOFTWARE QUALITY ASSURANCE ENGINEER) Lipase 25 10 - 99 Units/L Comment:Testing performed by : [address], [address] Blood Venous blood specimen / Unknown 10/13/2024 10:11 AM SOFTWARE QUALITY ASSURANCE ENGINEER 10/13/2024 10:24 AM SOFTWARE QUALITY ASSURANCE ENGINEER Miguel Stokes DO LAB BLOOD ORDERABLES Final Result [address] [place] [address] * Comprehensive metabolic panel (10/13/2024 10:11 AM SOFTWARE QUALITY ASSURANCE ENGINEER) Sodium 143 135 - 145 mmol/L Comment:Testing performed by : [address] [address] Potassium, pl 3.6 3.3 - 4.9 mmol/L [facility] Comment:Testing performed by : [address], [place]., [address] Chloride 102 97 - 110 mmol/L [facility] Comment:Testing performed by : [address], [place]., [address] CO2 27 22 - 32 mmol/L [facility] Comment:Testing performed by : [address], [place]., [address] Anion gap 14 2 - 15 mmol/L [facility] Comment:Testing performed by : [address], [place]., [address] BUN 11 6 - 25 mg/dL [facility] Comment:Testing performed by : [address], [place]., [address] Creatinine 0.90 0.80 - 1.30 mg/dL [facility] Comment:Testing performed by : [address] [address] Glucose 99 70 - 199 mg/dL [facility] Comment: Interpretive Data Fasting glucose >/= [...] last revised 2022. Testing performed by: [address] [address] Calcium 9.6 8.5 - 10.3 mg/dL [facility] Comment:Testing performed by : [address] [address] Bilirubin, total 0.8 0.1 - 1.2 mg/dL [facility] Comment:Testing performed by : [address] [address] Protein, pl 7.9 6.5 - 8.5 g/dL [facility] Comment:Testing performed by : [facility], [address] [place] [address]., [address] Albumin 4.3 3.5 - 5.0 g/dL VAL Comment:Testing performed by : [address] [address] Alk phos 62 40 - 130 Units/L VAL Comment:Testing performed by : [address] [address] ALT 17 7 - 55 Units/L VAL Comment:Testing performed by : [address] [address] AST 20 10 - 50 Units/L VAL Comment:Testing performed by : [address] [address] Blood 10/13/2024 10:1 1 AM SOFTWARE QUALITY ASSURANCE ENGINEER 10/13/2024 10:24 AM SOFTWARE QUALITY ASSURANCE ENGINEER Miguel Stokes DO LAB BLOOD ORDERABLES Final Result VAL [address] [facility] Department [place] [address] * ECG 12 lead (10/13/2024 10:05 AM SOFTWARE QUALITY ASSURANCE ENGINEER) Ventricular Rate EKG/Min 60 BPM [facility] Atrial Rate 60 BPM [facility] AR-Interval (MSEC) 154 ms [facility] QRS-Interval (MSEC) 94 ms [facility] QT-Interval (MSEC) 414 ms [facility] QTc 414 ms [facility] P [place] 9 degrees [facility] R [place] 30 degrees [facility] T [place] 16 degrees [facility] Diagnosis Normal sinus rhythm Normal ECG When compared with ECG of 10-NOV-2022 18:29, Nonspecific T wave abnormality, improved in lateral leads Confirmed by MYLA BARKER M.D. ([id number]) on 10/16/2024 8:25:56 PM [facility] 10/13/2024 10:0 5 AM SOFTWARE QUALITY ASSURANCE ENGINEER 10/16/2024 8:25 PM SOFTWARE QUALITY ASSURANCE ENGINEER us Miguel Stokes DO ECG ORDERABLES Final Resul t [facility] * (ABNORMAL) Hemoglobin A1c (01/22/2020 9:58 AM CDT) Hemoglobin A1c % 6.2(H) 4.0 - 5.6 % [facility] Comment: ADA 2016 GUIDELINES: Initial Diagnostic Criteria HbA1c Result: Interpretation: <5.7% Normal 5.7-6.4% At risk for diabetes mellitus >=6.5% Consistent with diabetes mellitus Diabetes monitoring Target value (ADA Recommended) <7% 01/22/2020 9:58 AM CDT 01/22/2020 10:14 AM CDT Narrative Resulting Agency Comment CLI us Charanjit Sheffield MD LAB BLOOD ORDERABLES Final Result Performing Organization Address City/[facility]/ZIP Co de Phone Number [address] [address] [phone] * (ABNORMAL) Lipid panel (01/22/2020 9:58 AM CDT) Triglycerides 173(H) 0 - 149 mg/dL [facility] Comment: National Lipid Association/NCEP Guidelines: Normal < 150 mg/dL Borderline high 150-199 mg/dL High 200-499 mg/dL Very High >=500 mg/dL Cholesterol 152 0 - 199 mg/dL [facility] Comment: National Lipid Association/NCEP Guidelines: Desirable < 200 mg/dL Borderline high: 200-239 mg/dL High Risk: >=240 mg/dL HDL Cholesterol 22 mg/dL [facility] Comment: Reference Ranges: Males: >=40 mg/dL Females: >=50 mg/dL LDL Cholesterol, Calc 95 0 - 129 mg/dL [facility] Comment: National Lipid Association/NCEP Guidelines: Optimal < 100 mg/dL Near Optimal 100-129 mg/dL Borderline high 130-159 mg/dL High >=160 mg/dL Cholesterol/HDL Ratio 6.9 [facility] Comment: Optimal < 3.5:1 High > 5:1 01/22/2020 9:58 AM CDT 01/22/2020 10:14 AM CDT Narrative Resulting Agency Comment CLI Charanjit Sheffield MD LAB BLOOD ORDERABLES Final Result Performing Organization Address City/State/ZIP Co in Phone Number [place] [address] [place] [address], [facility] [phone] * COLONOSCOPY REPORT (07/01/2017) Anatomical Region Laterality Modality Other Provider Scanning GI PROCEDURE ORDERABLES Edited Result - Final from Last 3 Months or Most Recently Relevant to Health Maintenance Insurance [facility] Care Teams Commercial Lease Administrator Relationship Specialty Start Date End Date Unknown, Notinfile PCP - General 08/01/24 Miscellaneous, Not In File 11/16/19
--- OUTSIDE RECORDS SUMMARY | 2024-12-24 18:30 | XMS_ITS | Clinical Summary ---
Author Organization [facility] Administrative Offices Address [address] [place] [address] Care Team Providers Care Police Pilot Name Role Phone Unavailable Primary Care Provider [...] None 6 Active fluticasone (FLONASE) 50 mcg/spray [place], Suspension Administer 2 Sprays in each nostril [...] on file Legal Sex Male 4:57 AM SIDE GUIDER Gender Identity Not on file Sexual Orientation Not on file Occupation Industry Job Start Date Job End Date Not on file Not on file Not on file Not on file Not on file Not on file Not on file Not on file Last Filed Vital Signs Vital Sign Reading Time Taken Comments Blood Pressure 152/94 11/18/2019 7:07 AM SIDE GUIDER Pulse 66 11/18/2019 7:07 AM SIDE GUIDER Temperature 36.7 C (98.1 F) 11/18/2019 5:34 AM SIDE GUIDER Respiratory Rate 18 11/18/2019 7:07 AM SIDE GUIDER Oxygen Saturation 98% 11/18/2019 7:07 AM SIDE GUIDER Inhaled Oxygen Concentration - - Weight 120.2 kg (265 lb) 11/18/2019 5:34 AM SIDE GUIDER Height 188 cm (6' 2 ) 11/18/2019 5:34 AM SIDE GUIDER Body Mass Index 34.02 11/18/2019 5:34 AM SIDE GUIDER Plan of Treatment Health Maintenance Due Date [...] - 6.1 % 07/02/2015 5:25 PM CDT [facility] [employer] [facility] EST. AVG GLUCOSE, A1C 140 mg/dL 07/02/2015 5:25 PM CDT [facility] Blood Venipuncture - Floor Collect / Unknown 07/02/2015 2:10 AM CDT 07/02/2015 2:11 AM CDT Narrative [facility] - 07/02/2015 5:25 PM CDT Based on the ADAG study equation. us Iwona Arteaga APN CHEMISTRY ORDERABLES Final R esult [facility] CLIA# [id number] [address] [place] [address] from Last 3 Months or Most Recently Relevant to Health Maintenance Insurance MEDICAID Advance Directives For more information, please contact: [phone] * Full Code (Latest Code Status on File) Date Activated Date Inactivated Comments 07/02/2015 8:36 AM 07/02/2015 8:02 PM * Full Code Date Activated Date Inactivated Comments 08/28/2014 2:37 PM 08/28/2014 5:13 PM
--- OUTSIDE RECORDS SUMMARY | 2024-12-24 18:30 | XMS_ITS | Encounter Summary ---
Author Organization [facility] Address [address] [facility] [place] [address] Care Team Providers Care Manager Patient Name Role Phone Unavailable Primary Care Provider Unavailabl e Reason for Visit * Reason Onset Date Comments Nausea 10/02/2019 Cramps 10/02/2019 Pain Abdominal 10/02/2019 Encounter Details Date Type Department Care Team (Late st Contact Info) Description 10/02/2019 Telephone [facility] [address] [facility] [address] [place] [address] Radha Palafox, WET MILLING WHEEL OPERATOR-CHEF DE CUISINE [address] OF [facility] [phone] Nausea; Cramps; Pain Abdominal Social History Tobacco Use Types Packs/Day Years Used Date Smoking Tobacco: Former Smokeless Tobacco: Never Alcohol Use Standard Drinks/Week Comments No 0 (1 standard drink = 0.6 oz pur e alcohol) Sex and Gender Information Value Date Recorded Sex Assigned at Not on file Legal Sex Male 6:27 AM MILL TENDER Gender Identity Not on file Sexual [...] no UTI. Pt requesting GIM office call [facility], [phone] for ED report for VENTURA Palafox to review. [place] recommended pt call ED and request medical records to be faxed to GI and pt raised voice w/ increased agitation at [place] stating he had no time and would [...] for c/b to discuss sx further. CB# [phone] Routed to provider for further review TENDER documented in this encounter Plan of Treatment Not on file documented as of this encounter Visit Diagnoses Not on filedocumented in this encounter
--- OUTSIDE RECORDS SUMMARY | 2024-12-24 18:30 | XMS_ITS | Encounter Summary ---
Author Organization [facility] Address [address] [facility] [place] [address] Care Team Providers Care Assistant Executive Housekeeper Name Role Phone Unavailable Primary Care Provider Unavailabl e Reason for Visit * Reason Onset Date Comments Blood Pressure 12/01/2019 Encounter Details Date Type Department Care Team (Late st Contact Info) Description 12/01/2019 Nurse Triage [facility] [address] [facility] [address] [place] [address] Radha Palafox, RAIL CAR OPERATOR-EYELETTER [address] OF [facility] [place] [phone] Blood Pressure Social History Tobacco Use Types Packs/Day Years Used Date Smoking Tobacco: Former Smokeless Tobacco: Never Alcohol Use Standard Drinks/Week Comments No 0 (1 standard drink = 0.6 oz pur e alcohol) Sex and Gender Information Value Date Recorded Sex Assigned at Not on file Legal Sex Male 6:27 AM THERAPY SITE COORDINATOR Gender Identity Not on file Sexual Orientation Not on file documented as of this encounter Miscellaneous Notes * Telephone Encounter - Mallory Flores RN - 12/01/2019 10:17 AM CDT Reason for Disposition [1] Systolic BP >= 160 OR Diastolic >= 100 AND [2] cardiac or neurologic symptoms (e.g., chest pain, difficulty breathing, unsteady gait, blurred vision) Protocols used: HIGH BLOOD [id number] Patient given ER disposition, patient verbalizes understanding. [...]
--- OUTSIDE RECORDS SUMMARY | 2024-12-24 18:30 | XMS_ITS | Encounter Summary ---
Author Organization [facility] Address [address] [facility] [place] [address] Care Team Providers Care Truck Dispatcher Name Role Phone Unavailable Primary Care Provider Unavailabl e Reason for Visit * Reason Onset Date Comments FLU 11/27/2019 Encounter Details Date Type Department Care Team (Late st Contact Info) Description 11/27/2019 Telephone [facility] [address] [place] [address] Radha Palafox, MOTION GRAPHICS DESIGNER-MECHANIC SENIOR [address] [facility] [address] OF [facility] [place] [phone] FLU Social History Tobacco Use Types Packs/Day Years Used Date Smoking Tobacco: Former Smokeless Tobacco: Never Alcohol Use Standard Drinks/Week Comments No 0 (1 standard drink = 0.6 oz pur e alcohol) Sex and Gender Information Value Date Recorded Sex Assigned at Not on file Legal Sex Male 6:27 AM DIE CAST ENGINEER Gender Identity Not on file Sexual Orientation Not on file documented as of this encounter Miscellaneous Notes * Telephone Encounter - Mallory Flores RN - 11/27/2019 1:21 PM CDT Caller transferred to triage line from affirmative action officer and call got disconnected. Per affirmative action officer caller thinks he has coronavirus Attempted to call back and left vm. documented in this encounter Plan of Treatment Not on file documented as of this encounter Visit Diagnoses Not on filedocumented in this encounter
--- OUTSIDE RECORDS SUMMARY | 2024-12-24 18:30 | XMS_ITS | Encounter Summary ---
Author Organization [facility] Address [address] [facility] [place] [address] Care Team Providers Care Systems Administration Analyst Name Role Phone Unavailable Primary Care Provider Unavailabl e Reason for Visit * Reason Onset Date Comments Order 08/02/2019 Encounter Details Date Type Department Care Team (Late st Contact Info) Description 08/02/2019 Telephone [facility] [address] [place] [address] Radha Palafox, PUBLIC IMPROVEMENT INSPECTOR-LINSEED OIL BOILER [address] OF [facility] [place] [phone] Order Social History Tobacco Use Types Packs/Day Years Used Date Smoking Tobacco: Former Smokeless Tobacco: Never Alcohol Use Standard Drinks/Week Comments No 0 (1 standard drink = 0.6 oz pur e alcohol) Sex and Gender Information Value Date Recorded Sex Assigned at Not on file Legal Sex Male 6:27 AM COTTON SAMPLER Gender Identity Not on file Sexual Orientation [...] Sleep study ordered and referral to GI. ON SAMPLER documented in this encounter Plan of Treatment Not on file documented as of this encounter Visit Diagnoses Diagnosis Loud snoring- Primary Class 3 severe obesity with serious comorbidity in adult, unspecified BMI, unspecified obesity type (HCC) Sleep apnea, unspecified type documented in this encounter
--- OUTSIDE RECORDS SUMMARY | 2024-12-24 18:30 | XMS_ITS | Clinical Summary ---
Author Organization [facility] [address] [place] [id number] Care Team Providers Care Gate Cutter Name Role Phone Miscellaneous, Not In File [...] mouth daily for 30 doses 120 tablet 10/12/20 24 Active atenoloL (TENORMIN) 50 mg tablet [...] pain and frequency. -See either PCP or chairman ceo to manage diabetes. -I told patient that if he fails this, we may need to look at further testing for penile pain. Patient verbalized understanding. OAB (overactive bladder) 11/09/2020 Assessment & Plan (11/13/2020 6:03 PM ARMED SECURITY PROFESSIONAL): -Symptoms are suggestive of OAB. Prostate size [...] 11/09/2020 Assessment & Plan (11/09/2020 5:21 PM ARMED SECURITY PROFESSIONAL): -Patient has history of diverticulitis, benign tumor [...] appointment. Assessment & Plan (11/09/2020 5:20 PM ARMED SECURITY PROFESSIONAL): -CT showing non-obstructing stones in kidney. Patient [...] 0 Assessment & Plan (11/16/2019 4:14 PM ARMED SECURITY PROFESSIONAL): Old psychiatrist, Dr Easley, in [place]. Rx'ed [...] 11/16/2019 Assessment & Plan (11/16/2019 4:11 PM ARMED SECURITY PROFESSIONAL): Not taking meds as prescribed. Pt asked to leave before A1C could be tested. Severe obesity (BMI 35.0-35.9 with comorbidity) 11/16/2019 Assessment & Plan (11/16/2019 4:14 PM ARMED SECURITY PROFESSIONAL): Body mass index is 35.12 kg/m . Unable to director of group counseling program him given that he was escorted out. [...] (03/12/2017): Scheduled appointment with psychiatric, April 01, [facility] in [place]. 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 Wasn't able to see many doctors in the area because he had been fired. Encounters Date Type Department Care Team Description 10/24/2024 Telephone [facility] Gastroenterology at [address] [place] [address] Jd Mayes MD 10/22/2024 6:32 PM ARMED SECURITY PROFESSIONAL - 10/22/2024 8:51 PM [facility] Emergency [facility] Emergency Department [address] [place] [address] Influenza A (Primary Dx); Acute otitis media, unspecified otitis media type Discharge Disposition: Discharge to home or self care 10/13/2024 11:47 AM ARMED SECURITY PROFESSIONAL - 10/13/2024 2:14 PM [facility] Emergency [facility] Emergency Department [address] [place] [id number] Diverticulitis (Primary Dx); UTI symptoms Discharge Disposition: Discharge to home or self care 10/02/2024 4:18 AM ARMED SECURITY PROFESSIONAL - 10/02/2024 5:02 AM [facility] Emergency [facility] Emergency Department [address] [place] [address] John Mckeon MD Generalized anxiety disorder (Primary Dx) Discharge Disposition: Discharge to home or self care 10/01/2024 11:06 PM ARMED SECURITY PROFESSIONAL - 10/02/2024 3:37 AM [facility] Emergency [facility] Emergency Department [address] [place] [address] Discharge Disposition: Left without being seen from Last 3 Months Immunizations Immunization Administration Dates Next Due Td, Unspecified 09/13/2011 Surgical History Surgery Date Site/Laterality Comments CHOLECYSTECTOMY CHOLECYSTECTOMY 09/13/2000 - 09/12/2001 Medical History Medical History Date Comments Hypertension Diverticulosis Arthritis PTSD (post-traumatic stress disorder) Depression Recurrent major depressive disorder Benzodiazepine dependence (HCC) Anxiety Type 2 diabetes [...] on file Legal Sex Male 1:40 AM ARMED SECURITY PROFESSIONAL Gender Identity Not on file Sexual Orientation Not on file Obstetrics History Last Filed Vital Signs Vital Sign [place] Time Taken Comments Blood Pressure 143/89 10/22/2024 8:25 PM ARMED SECURITY PROFESSIONAL Pulse 73 10/22/2024 8:25 PM ARMED SECURITY PROFESSIONAL Temperature 37.2 C (99 F) 10/22/2024 4:46 PM ARMED SECURITY PROFESSIONAL Respiratory Rate 16 10/22/2024 8:25 PM ARMED SECURITY PROFESSIONAL Oxygen Saturation 99% 10/22/2024 8:25 PM ARMED SECURITY PROFESSIONAL Inhaled Oxygen Concentration - - Weight 120.1 kg (264 lb 12.4 oz) 10/22/2024 4:46 PM ARMED SECURITY PROFESSIONAL Height 188 cm (6' 2 ) 10/22/2024 4:46 PM ARMED SECURITY PROFESSIONAL Body Mass Index 33.99 10/22/2024 4:46 PM ARMED SECURITY PROFESSIONAL Plan of Treatment Scheduled Procedures Name Priority Associated Diagnoses Date/Ti me COLONOSCOPY Open Access Diverticulitis Health Maintenance Due Date Last Done Comments Albumin Creatinine Ratio, Urine 1972 Hepatitis C Screening 1972 Prostate Cancer Screening-PSA 1972 Dilated Eye Exam 1972 Foot Exam 1972 Hepatitis B Screening 02/09/1990 Regular Well Visit/Exam 18-64 02/09/1990 Pneumococcal vaccine <65 (1 of 2 - PCV) 02/09/1991 DTaP/Tdap/Td Vaccine (1 - Tdap) 09/14/2011 2 Hemoglobin A1C 07/24/2020 01/22/2020, 03/2018, 03/01/2018 Depression Screening 11/15/2020 11/16/2019, 11/16/2019, 03/12/2017 Lipid Panel 01/21/2021 01/22/2020, 03/2020, 03/26/2019, Additional history exists Zoster Vaccine (1 of 2) 02/09/2022 Influenza Vaccine (Season Ended) 2025 eGFR 10/13/2025 10/13/2024, 07/14, 06/23/2024, Additional history exists Colon Cancer Screening-Colonoscopy 07/01/20272016 Procedures Procedure Name Priority Date/Time Associated Diagnosis Comments XR CHEST PA LATERAL 2 VIEWS ED 10/22/2024 5:05 PM ARMED SECURITY PROFESSIONAL URINALYSIS, MICROSCOPIC ONLY STAT 10/22/2024 5:01 PM ARMED SECURITY PROFESSIONAL URINALYSIS AND REFLEX TO MICROSCOPIC AND CULTURE STAT 10/22/2024 5:01 PM ARMED SECURITY PROFESSIONAL INFLUENZA A/B, RSV, AND COVID-19 PCR STAT 10/22/2024 4:59 [address]ITY [address]AL [address] ABDOMEN PELVIS WO CONTRAST ED 10/13/2024 12:25 PM ARMED SECURITY PROFESSIONAL URINALYSIS, MICROSCOPIC ONLY STAT 10/13/2024 10:13 AM ARMED SECURITY PROFESSIONAL URINALYSIS AND REFLEX TO MICROSCOPIC AND CULTURE STAT 10/13/2024 10:13 AM ARMED SECURITY PROFESSIONAL EGFR STAT 10/13/2024 10:11 AM ARMED SECURITY PROFESSIONAL DIFFERENTIAL AUTO STAT 10/13/2024 10: 11 AM ARMED SECURITY PROFESSIONAL LIPASE STAT 10/13/2024 10:11 AM ARMED SECURITY PROFESSIONAL COMPREHENSIVE METABOLIC PANEL STAT 10/13/2024 10:11 AM ARMED SECURITY PROFESSIONAL CBC WITH AUTO DIFFERENTIAL STAT 10/13/2024 10:11 AM ARMED SECURITY PROFESSIONAL ECG 12-LEAD STAT 10/13/2024 10:05 AM ARMED SECURITY PROFESSIONAL HEMOGLOBIN A1C Routine 01/22/2020 9:58 AM CDT LIPID PANEL Routine 01/22/2020 9:58 AM CDT COLONOSCOPY REPORT 07/01/2017 from Last 3 Months or Most Recently Relevant to Health Maintenance Results * XR Chest PA Lateral 2 Views (10/22/2024 5:05 PM ARMED SECURITY PROFESSIONAL) Anatomical Region Laterality Modality Body, Chest N/A Computed Radiogr aphy 10/22/2024 5:38 PM ARMED SECURITY PROFESSIONAL Narrative 10/22/2024 5:38 PM ARMED SECURITY PROFESSIONAL EXAM DESCRIPTION: XR CHEST PA LATERAL 2 [...] Dave Kat M.D. KT: KT Report ID: [id number] [place] Location: [place] [address] Procedure Note Dave Kat MD - 10/22/2024 [...] Dave Kat M.D. KT: KT Report ID: [id number] [place] Location: [place] [address] us Jhoana Potts PHOTOGRAPHIC EDITOR IMG XR PROCEDURES Final Resul t * (ABNORMAL) Urinalysis reflex to microscopic and culture Urine, clean voided (10/22/2024 5:01 PM ARMED SECURITY PROFESSIONAL) Color, ur Yellow Yellow Comment:Testing performed by : [address] [address] Clarity, ur Clear Clear VAL Comment:Testing performed by : [address] [address] Specific gravity, ur 1.009 1.003 - 1.030 VAL Comment:Testing performed by : [address] [address] pH, urine 6.5 VAL Comment: Interpretive Data U rine pH is affected by diet, medications, systemic acid-base disturbances, and renal tubular function. pH may affect urinary stone formation. For example, urine pH below 6.0 may help reduce the tendency for calcium phosphate stones and pH greater than 6.0 may reduce the tendency for uric acid stone formation. Source: [facility] [employer] Current Interpretive Data was last revised on 2017 Testing performed by: [address] [address] Protein, ur ql Trace(A) Negative VAL Comment:Testing performed by : [address] [address] Glucose, ur ql Negative Negative VAL Comment:Testing performed by : [address] [address] Ketones, ur Negative Negative VAL Comment:Testing performed by : [address] [address] Bilirubin, ur Negative Negative VAL Comment:Testing performed by : [address] [address] Blood, ur Negative Negative VAL MULLER Comment:Testing performed by : [address] [address] Urobilinogen, ur <2.0 <2.0 mg/dL VAL MULLER Comment:Testing performed by : [address] [address] Nitrite, ur Negative Negative VAL Comment:Testing performed by : [address] [address] Leukocyte esterase, ur Negative Negative VAL Comment:Testing performed by : [address] [address] UA reflex comment Reflex to microscopic UA will be performed. VAL MULLER Comment:Testing performed by : [address] [address] Urine, clean voided 10/22/2024 5:01 PM ARMED SECURITY PROFESSIONAL 10/22/2024 5:06 PM ARMED SECURITY PROFESSIONAL Jhoana Potts NP LAB MICROBIOLOGY - GENERAL OR DERABLES Final Result Performing Organization Address [facility]/State/ZIP Co de Phone Number VAL [address] [facility] Department [place] [address] * Urinalysis, microscopic only (10/22/2024 5:01 PM ARMED SECURITY PROFESSIONAL) WBC, ur 0-5 0 - 5 /HPF Comment:Testing performed by : [address] [address] RBC, ur 0-2 0 - 2 /HPF VAL Comment:Testing performed by : [address] [address] Culture Reflex Comment Reflex conditions for urine culture (WBC >10) not met. VAL Comment:Testing performed by : [address] [address] Urine, clean voided 10/22/2024 5:01 PM ARMED SECURITY PROFESSIONAL 10/22/2024 5:06 PM ARMED SECURITY PROFESSIONAL us Jhoana Potts NP LAB URINE ORDERABLES Final Re sult Performing Organization Address [facility]/ZIP Co de Phone Number [facility] [address] [facility] Department [place] [address] * (ABNORMAL) Influenza A/B, RSV, and COVID-19 PCR Nasopharyngeal (10/22/2024 4:59 PM ARMED SECURITY PROFESSIONAL) COVID-19 RNA Negative Negative Comment:Testing performed by : [address] [address] Influenza A RNA Positive(A) Negative [facility] Comment:Testing performed by : [address] [address] Influenza B RNA Negative Negative [facility] Comment:Testing performed by : [address] [address] RSV RNA Negative Negative [facility] Comment: Interpretive data: Testing performed by [facility]. This test is performed using the [employer] Xpert Xpress CoV-2/Flu/RSV plus assay. This is a multiplex, real-time reverse transcriptase PCR assay intended for the qualitative detection of nucleic acid from SARS-CoV-2, influenza A, influenza B, and respiratory syncytial virus. This assay has been cleared by the [place] Food and Drug administration. The performance characteristics have been verified by the [facility]. Results must be considered in the clinical context, and a negative result does not rule out infection. Interpretive Data last revised 2023 Testing performed by: [address] [address] Nasopharyngeal 10/22/2024 4: 59 PM ARMED SECURITY PROFESSIONAL 10/22/2024 5:05 PM ARMED SECURITY PROFESSIONAL Narrative [facility] - 10/22/2024 5:52 PM ARMED SECURITY PROFESSIONAL Is the Patient experiencing symptoms consistent with COVID?->Yes us Jhoana Potts NP LAB MICROBIOLOGY - GENERAL OR DERABLES Final Result Performing Organization Address City/[facility]/ZIP Co de Phone Number VAL [address] [facility] Department [place] [address] * CT Abdomen Pelvis WO Contrast (10/13/2024 12:25 PM ARMED SECURITY PROFESSIONAL) Anatomical Region Laterality Modality Body N/A Computed Tomogra phy 10/13/2024 12:5 0 PM ARMED SECURITY PROFESSIONAL Narrative 10/13/2024 1:08 PM ARMED SECURITY PROFESSIONAL EXAM DESCRIPTION: CT ABDOMEN PELVIS WO CONTRAST [...] Electronically signed by Dave Benavides M.D. KR: KR Report ID: [id number] [place] Location: [id number] Procedure Note Dave Benavides MD - 10/13/2024 [...] Dave Benavides M.D. KR: INDIO Report ID: [id number] [place] Location: [place] [address] [address] PROCEDURES Final Result * (ABNORMAL) Urinalysis reflex to microscopic and culture Urine (10/13/2024 10:13 AM ARMED SECURITY PROFESSIONAL) Color, ur Yellow Yellow Comment:Testing performed by : [address] [address] Clarity, ur Clear Clear VAL Comment:Testing performed by : [address] [address] Specific gravity, ur 1.032(H) 1.003 - 1.030 VAL Comment:Testing performed by : [address] [address] pH, urine 5.5 VAL Comment: Interpretive Data U rine pH is affected by diet, medications, systemic acid-base disturbances, and renal tubular function. pH may affect urinary stone formation. For example, urine pH below 6.0 may help reduce the tendency for calcium phosphate stones and pH greater than 6.0 may reduce the tendency for uric acid stone formation. Source: [employer] Current Interpretive Data was last revised on 2017 Testing performed by: [address] [place] [address] Protein, ur ql Trace(A) Negative VAL Comment:Testing performed by : [address], [place]., [address] Glucose, ur ql Negative Negative VAL Comment:Testing performed by : [address], [place]., [address] Ketones, ur 1+(A) Negative VAL Comment:Testing performed by : [address], [place]., [address] Bilirubin, ur Negative Negative VAL Comment:Testing performed by : [address], [place]., [address] Blood, ur Negative Negative VAL Comment:Testing performed by : [address], [place]., [address] Urobilinogen, ur 2.0(A) <2.0 mg/dL VAL Comment:Testing performed by : [address] [address] Nitrite, ur Negative Negative VAL Comment:Testing performed by : [address], [place]., [address] Leukocyte esterase, ur 2+(A) Negative VAL Comment:Testing performed by : [address] [address] UA reflex comment Reflex to microscopic UA will be performed. VAL Comment:Testing performed by : [address] [address] Urine 10/13/2024 10:1 3 AM ARMED SECURITY PROFESSIONAL 10/13/2024 10:24 AM ARMED SECURITY PROFESSIONAL us Miguel Stokes DO LAB MICROBIOLOGY - GENERAL ORDERABLES Final Result VAL MULLER [address] [facility] Department [place] [address] * (ABNORMAL) Urinalysis, microscopic only (10/13/2024 10:13 AM ARMED SECURITY PROFESSIONAL) WBC, ur 0-5 0 - 5 /HPF Comment:Testing performed by : [address] [address] RBC, ur 0-2 0 - 2 /HPF VAL MULLER Comment:Testing performed by : [address] [address] Epithelial cells, squamous, ur 1-5 0 - 5 /HPF VAL MULLER Comment:Testing performed by : [facility], [address] [place] [address]., [address] Mucous, ur Present(A) VAL MULLER Comment:Testing performed by : [address] [address] Hyaline casts, ur 1-5 0 - 10 /LPF VAL Comment:Testing performed by : [address] [address] Culture Reflex Comment Reflex conditions for urine culture (WBC >10) not met. VAL MULLER Comment:Testing performed by : [address] [address] Urine 10/13/2024 10:1 3 AM ARMED SECURITY PROFESSIONAL 10/13/2024 10:24 AM ARMED SECURITY PROFESSIONAL Miguel Stokes DO LAB URINE ORDERABLES Final Result VAL [address] [facility] Department [place] [address] * eGFR (10/13/2024 10:11 AM ARMED SECURITY PROFESSIONAL) eGFR >90 >=60 mL/min/1. 73 m2 Comment: [...] Inclusion of Race in Diagnosing Kidney Disease, AVEL 2020). The CKD-EPI equation should not be used for patients with unstable renal function and has not been validated in children and those over 70. Current interpretive data was last reviewed 2021. Testing performed by: [address] [address] Blood 10/13/2024 10:1 1 AM ARMED SECURITY PROFESSIONAL 10/13/2024 10:24 AM ARMED SECURITY PROFESSIONAL Miguel Stokes DO LAB BLOOD ORDERABLES Final Result [place] [id number] [facility] Department [place] [address] * Differential, auto (10/13/2024 10:11 AM ARMED SECURITY PROFESSIONAL) Neutrophil abs 3.0 1.5 - 6.5 K/cumm Comment:Testing performed by : [address] [address] Imm gran abs 0.0 0.0 - 0.1 K/cumm VAL Comment:Testing performed by : [address] [address] Lymphocyte abs 1.2 0.8 - 3.3 K/cumm VAL Comment:Testing performed by : [address] [address] Monocyte abs 0.3 0.2 - 0.8 K/cumm VAL Comment:Testing performed by : [address] [address] Eosinophil abs 0.1 0.0 - 0.5 K/cumm VAL Comment:Testing performed by : [address] [address] Basophil abs 0.0 0.0 - 0.1 K/cumm VAL Comment:Testing performed by : [address] [address] Neutrophil pct 64.6 % VAL Comment: Interpretive Data Percent cell count reference ranges are not reported, since discordance with absolute values may lead to misinterpretation of CBC data. Current Interpretive Data was last revised on 2017. Testing performed by: [address] [address] Imm gran pct 0.2 % [facility] Comment: Interpretive Data Percent cell count reference ranges are not reported, since discordance with absolute values may lead to misinterpretation of CBC data. Current Interpretive Data was last revised on 2017. Testing performed by: [address] [address] Lymphocyte pct 25.9 % [facility] Comment: Interpretive Data Percent cell count reference ranges are not reported, since discordance with absolute values may lead to misinterpretation of CBC data. Current Interpretive Data was last revised on 2017. Testing performed by: [address] [address] Monocyte pct 5.9 % [facility] Comment: Interpretive Data Percent cell count reference ranges are not reported, since discordance with absolute values may lead to misinterpretation of CBC data. Current Interpretive Data was last revised on 2017. Testing performed by: [address] [address] Eosinophil pct 2.8 % [facility] Comment: Interpretive Data Percent cell count reference ranges are not reported, since discordance with absolute values may lead to misinterpretation of CBC data. Current Interpretive Data was last revised on 2017. Testing performed by: [address] [address] Basophil pct 0.6 % [facility] Comment: Interpretive Data Percent cell count reference ranges are not reported, since discordance with absolute values may lead to misinterpretation of CBC data. Current Interpretive Data was last revised on 2017. Testing performed by: [address] [address] Blood 10/13/2024 10:1 1 AM ARMED SECURITY PROFESSIONAL 10/13/2024 10:24 AM ARMED SECURITY PROFESSIONAL us Miguel Stokes DO LAB BLOOD ORDERABLES Final Result VAL [address] [facility] Department [place] [address] * (ABNORMAL) CBC with auto differential (10/13/2024 10:11 AM ARMED SECURITY PROFESSIONAL) [facility] Signature WBC 4.7 3.8 - 9.9 K/cumm Comment:Testing performed by : [address] [address] Hgb 11.2(L) 13.0 - 17.5 g/dL VAL Comment:Testing performed by : [address] [address] Hct 38.0(L) 38.9 - 50.3 % VAL Comment:Testing performed by : [address], [address] Plt 226 150 - 400 K/cumm VAL Comment:Testing performed by : [address] [address] MPV 8.9(L) 9.1 - 12.3 fL VAL Comment:Testing performed by : [address], [address] RBC 5.59 4.30 - 5.80 M/cumm VAL Comment:Testing performed by : [address] [address] MCV 68.0(L) 81.3 - 96.4 fL VAL Comment:Testing performed by : [address] [address] MCH 20.0(L) 27.1 - 33.3 pg VAL Comment:Testing performed by : [address], [address] MCHC 29.5(L) 32.3 - 35.7 g/dL VAL Comment:Testing performed by : [address], [address] RDW CV 19.8(H) 11.1 - 14.9 % AVL Comment:Testing performed by : [address], [address] RDW SD 45.5 35.7 - 48.1 fL VAL Comment:Testing performed by : [address] [address] NRBC abs 0.00 0.00 - 0.01 K/cumm VAL MULLER Comment:Testing performed by : [address] [address] Blood Venous blood specimen / Unknown 10/13/2024 10:11 AM ARMED SECURITY PROFESSIONAL 10/13/2024 10:24 AM ARMED SECURITY PROFESSIONAL Miguel Stokes LAB BLOOD ORDERABLES Final Result Performing Organization Address [facility] de Phone Number VAL [address] [place] [address] * Lipase (10/13/2024 10:11 AM ARMED SECURITY PROFESSIONAL) [facility] Lipase 25 10 - 99 Units/L Comment:Testing performed by : [address] [address] Blood Venous blood specimen / Unknown 10/13/2024 10:11 AM ARMED SECURITY PROFESSIONAL 10/13/2024 10:24 AM ARMED SECURITY PROFESSIONAL Miguel Stokes DO LAB BLOOD ORDERABLES Final Result Performing Organization Address [facility] de Phone Number PAULA[address] [place] [address] * Comprehensive metabolic panel (10/13/2024 10:11 AM ARMED SECURITY PROFESSIONAL) [facility] Sodium 143 135 - 145 mmol/L Comment:Testing performed by : [address] [address] Potassium, pl 3.6 3.3 - 4.9 mmol/L VAL Comment:Testing performed by : [address] [address] Chloride 102 97 - 110 mmol/L VAL MULLER Comment:Testing performed by : [address] [address] CO2 27 22 - 32 mmol/L VAL MULLER Comment:Testing performed by : [address] [address] Anion gap 14 2 - 15 mmol/L VAL Comment:Testing performed by : [address] [address] BUN 11 6 - 25 mg/dL VAL Comment:Testing performed by : [address] [address] Creatinine 0.90 0.80 - 1.30 mg/dL VAL Comment:Testing performed by : [address] [address] Glucose 99 70 - 199 mg/dL VAL Comment: Interpretive [...] was last revised 2022. Testing performed by: [address] [address] Calcium 9.6 8.5 - 10.3 mg/dL VAL Comment:Testing performed by : [address] [address] Bilirubin, total 0.8 0.1 - 1.2 mg/dL VAL Comment:Testing performed by : [address] [address] Protein, pl 7.9 6.5 - 8.5 g/dL VAL Comment:Testing performed by : [address] [address] Albumin 4.3 3.5 - 5.0 g/dL VAL Comment:Testing performed by : [address] [address] Alk phos 62 40 - 130 Units/L VAL Comment:Testing performed by : [address] [address] ALT 17 7 - 55 Units/L VAL Comment:Testing performed by : [facility], [address] [place] [address]., [address] AST 20 10 - 50 Units/L VAL Comment:Testing performed by : [facility], [address] [place] [address]., [address] Blood 10/13/2024 10:1 1 AM ARMED SECURITY PROFESSIONAL 10/13/2024 10:24 AM ARMED SECURITY PROFESSIONAL Miguel Stokes DO LAB BLOOD ORDERABLES Final Result Performing Organization Address City/[facility]/ZIP Co de Phone Number VAL [address] [facility] Department [place] [address] * ECG 12 lead (10/13/2024 10:05 AM ARMED SECURITY PROFESSIONAL) Ventricular Rate EKG/Min 60 BPM [facility] Atrial Rate 60 BPM [facility] VT-Interval (MSEC) 154 ms [facility] QRS-Interval (MSEC) 94 ms [facility] QT-Interval (MSEC) 414 ms [facility] QTc 414 ms [facility] P Foster 9 degrees [facility] R Foster 30 degrees [facility] T Foster 16 degrees [facility] Diagnosis Normal sinus rhythm Normal ECG When compared with ECG of 10-NOV-2022 18:29, Nonspecific T wave abnormality, improved in lateral leads Confirmed by MYLA BARKER M.D. ([id number]) on 10/16/2024 8:25:56 PM [facility] 10/13/2024 10:0 5 AM ARMED SECURITY PROFESSIONAL 10/16/2024 8:25 PM ARMED SECURITY PROFESSIONAL Miguel Stokes DO ECG ORDERABLES Final Resul t Performing Organization Address City/[facility] Co de Phone Number [facility] * (ABNORMAL) Hemoglobin A1c (01/22/2020 9:58 AM CDT) Hemoglobin A1c % 6.2(H) 4.0 - 5.6 % [facility] Comment: ADA 2016 GUIDELINES: Initial Diagnostic Criteria HbA1c Result: Interpretation: <5.7% Normal 5.7-6.4% At risk for diabetes mellitus >=6.5% Consistent with diabetes mellitus Diabetes monitoring Target value (ADA Recommended) <7% 01/22/2020 9:58 AM CDT 01/22/2020 10:14 AM CDT Narrative Resulting Agency Comment CLI Charanjit Sheffield MD LAB BLOOD ORDERABLES Final Result Performing Organization Address City/[facility]/ZIP Co de Phone Number [address] [phone] * (ABNORMAL) Lipid panel (01/22/2020 9:58 AM CDT) Triglycerides 173(H) 0 - 149 mg/dL [facility] Comment: National Lipid Association/NCEP Guidelines: Normal < 150 mg/dL Borderline high 150-199 mg/dL High 200-499 mg/dL Very High >=500 mg/dL Cholesterol 152 0 - 199 mg/dL [facility] Comment: National Lipid Association/NCEP Guidelines: Desirable < 200 mg/dL Borderline high: 200-239 mg/dL High Risk: >=240 mg/dL HDL Cholesterol 22 mg/dL [facility] Comment: Reference Ranges: Males: >=40 mg/dL Females: >=50 mg/dL LDL Cholesterol, Calc 95 0 - 129 mg/dL [facility] Comment: National Lipid Association/NCEP Guidelines: Optimal < 100 mg/dL Near Optimal 100-129 mg/dL Borderline high 130-159 mg/dL High >=160 mg/dL Cholesterol/HDL Ratio 6.9 [facility] Comment: Optimal < 3.5:1 High > 5:1 01/22/2020 9:58 AM CDT 01/22/2020 10:14 AM CDT Narrative Resulting Agency Comment CLI Charanjit Sheffield MD LAB BLOOD ORDERABLES Final Result [address] [phone] * COLONOSCOPY REPORT (07/01/2017) Anatomical Region Laterality Modality Other us Provider Scanning GI PROCEDURE ORDERABLES Edited Result - Final from Last 3 Months or Most Recently Relevant to Health Maintenance Insurance Care Teams Gate Cutter Relationship Specialty Start Date End Date Unknown, Notinfile PCP - General 08/01/24 Miscellaneous, Not In File 11/16/19
--- OUTSIDE RECORDS SUMMARY | 2024-12-24 18:30 | XMS_ITS | Encounter Summary ---
Author Organization [facility] Address [address] [facility] [place] [address] Care Team Providers Care Utility Sales And Service Manager Name Role Phone Unavailable Primary Care Provider Unavailabl e Reason for Visit * Reason Onset Date Comments Med Question 10/18/2019 Med Question 10/19/2019 Order 10/20/2019 XRAY Follow-up 10/20/2019 Encounter Details Date Type Department Care Team (Late st Contact Info) Description 10/18/2019 Telephone [facility] [address] [facility] [address] Radha Palafox, COMMERCIAL OR INSTITUTIONAL CLEANER-UPHOLSTERY TECHNICIAN [address] OF [facility] INTERNAL MEDICINE [phone] Med Question; Med Question; Order (XRAY); Follow-up Social History Tobacco Use Types Packs/Day Years Used Date Smoking Tobacco: Former Smokeless Tobacco: Never Alcohol Use Standard Drinks/Week Comments No 0 (1 standard drink = 0.6 oz pur e alcohol) Sex and Gender Information Value Date Recorded Sex Assigned at Not on file Legal Sex Male 6:27 AM HAND BRAILLE TRANSCRIBER Gender Identity Not on file Sexual Orientation Not on file documented as of this encounter Miscellaneous Notes * Telephone Encounter - Remedios Catalan LPN - 10/20/2019 2:05 PM HAND BRAILLE TRANSCRIBER Pt came to 207 window. Pt is demanding xrays be done before his appointment. Pt is demanding that the nurse call me about this. I came early to have this done. I thought you people were here to helppatients. I want this done before the appointment because I want the results now. BRAILLE TRANSCRIBER * Telephone Encounter - Lynne Mendes - 10/20/2019 1:47 PM CST Upon chart review, no new update message from MOLDING ROOM SUPERVISOR Petrebekachen or xray order in system at this time. Outbound to pt to inform [place] called pt to inform of above update and pt verbalized understanding. Pt reports he is at [facility] nowand is going to go to office to see if can get an order for an Xray and then go to the lab to get labs drawn. No further questions or concerns at this time. # [phone] (home) Routed to provider for further review Routed to [facility] Nurse Communication for further review BRAILLE TRANSCRIBER * Telephone Encounter - Lynne Mendes - 10/20/2019 12:35 PM CST Upon chart review, TN checking for update from MOLDING ROOM SUPERVISOR Petzchen to c/b pt. As of this time, no new update from MOLDING ROOM SUPERVISOR Monalisachen. Will continue to monitor for update. BRAILLE TRANSCRIBER * Telephone Encounter - Lynne Mendes - 10/20/2019 10:54 AM CST Outbound to [facility] Venus - unable to reach Upon chart review, Liz Catalan forwarded message to VENTURA Palafox for review. BRAILLE TRANSCRIBER * Telephone Encounter - Lynne Mendes - 10/20/2019 9:54 AM CST Pt calling in b/c he is coming in to office today for OV w/ VENTURA Palafox @ 3:20pm and requesting an xray for kidney/left sided pain. Pt reports forgot to ask MOLDING ROOM SUPERVISOR Vivienne yesterday during phone conversation for xray [...] than 20min w/ the doctor . CB# [phone] (home) Routed to provider for further review HIGH PRIORITY BRAILLE TRANSCRIBER * Telephone Encounter - Radha Palafox APRN-CNP - 10/19/2019 1:18 PM HAND BRAILLE TRANSCRIBER Phone call--multiple vague complaints of not feeling [...] he will keep appt tomorrow. MELISA Diaz BRAILLE TRANSCRIBER * Telephone Encounter - Jovan Grewal - [...] was not aware of that information. Caller s tated that his provider was suppose to get him a urologist, [place] informed the caller that all of thisinformation could be discussed at his upcoming appt tomorrow. Caller continues to request to speak with the provider today, call back number [phone] provided Message routed to provider BRAILLE TRANSCRIBER * Telephone Encounter - Mallory Flores RN [...] like this he had to take xanax. [phone] BRAILLE TRANSCRIBER documented in this encounter Plan of Treatment Not on file documented as of this encounter Visit Diagnoses Not on filedocumented in this encounter
--- OUTSIDE RECORDS SUMMARY | 2024-12-24 18:30 | XMS_ITS | Encounter Summary ---
Author Organization [facility] Address [address] [facility] [place] [address] Care Team Providers Care Interventional Physiatrist Name Role Phone Unavailable Primary Care Provider Unavailabl e Reason for Visit * Reason Onset Date Comments Erroneous encounter-disregard 10/20/2019 Encounter Details Date Type Department Care Team (Late st Contact Info) Description 10/20/2019 Telephone [facility] [address] [facility] [address] [place] [address] Radha Palafox, AIR DEFENSE CONTROL OFFICER-BENCH ASSEMBLER OPERATOR [address] OF [facility] [place] [phone] Erroneous encounter-disregard Social History Tobacco Use Types Packs/Day Years Used Date Smoking Tobacco: Former Smokeless Tobacco: Never Alcohol Use Standard Drinks/Week Comments No 0 (1 standard drink = 0.6 oz pur e alcohol) Sex and Gender Information Value Date Recorded Sex Assigned at Not on file Legal Sex Male 6:27 AM NATIONAL SALES CONSULTANT Gender Identity Not on file Sexual Orientation Not on file documented as of this encounter Miscellaneous Notes * Telephone Encounter - Lynne Mendes - 10/20/2019 10:46 AM CST err ONAL SALES CONSULTANT documented in this encounter Plan of Treatment Not on file documented as of this encounter Visit Diagnoses Not on filedocumented in this encounter
--- OUTSIDE RECORDS SUMMARY | 2024-12-24 18:30 | XMS_ITS | Encounter Summary ---
Author Organization [facility] Address [address] [facility] [place] [address] Care Team Providers Care Child Care Teacher Name Role Phone Unavailable Primary Care Provider Unavailabl e Encounter Details Date Type Department Care Team (Late st Contact Info) Description 09/08/2019 Telephone [facility] [address] [facility] 206 [place] [address] Radha Palafox APRN-VAMSI [address] OF [facility] [place] [phone] Social History Tobacco Use Types Packs/Day Years Used Date Smoking Tobacco: Former Smokeless Tobacco: Never Alcohol Use Standard Drinks/Week Comments No 0 (1 standard drink = 0.6 oz pur e alcohol) Sex and Gender Information Value Date Recorded Sex Assigned at Not on file Legal Sex Male 6:27 AM PROCESS CONTROL SUPERVISOR Gender Identity Not on file Sexual [...] reluctantly let me connect him to scheduling ESS CONTROL SUPERVISOR * Telephone Encounter - Radha Palafox APRN-CNP - 09/08/2019 1:59 PM PROCESS CONTROL SUPERVISOR Please tell him that he needs to elevate his legs. I can not do anything for him over the phone. MELISA Diza ESS CONTROL SUPERVISOR * Telephone Encounter - Mallory Flores RN [...] would like you to call him CB [phone] ESS CONTROL SUPERVISOR documented in this encounter Plan of Treatment Not on file documented as of this encounter Visit Diagnoses Not on filedocumented in this encounter
--- OUTSIDE RECORDS SUMMARY | 2024-12-24 18:30 | XMS_ITS | Clinical Summary ---
Author Organization [facility] Address [address] [facility] [place] [address] Care Team Providers Care Batt Machine Operator Name Role Phone Unavailable Primary Care Provider Unavailabl e Source Comments [facility],non-owned Affiliates and Associated Physician Practices is amultiple site organization consisting of ambulatory clinics and hospital sitesin [place], [place], [place] and [place]. This disclosure is being madepursuant to the Care Everywhere program and may not contain all informatio navailable regarding this patient. Last updated 18.[facility] Allergies Active Allergy Reactions Criticality Noted Date [...] Urticaria,Shortness of Breath High 11/16/2019 Medications * This document contains information received from the source organization and may not represent a complete record from that organization. * Be aware that medications may not be up to date on this document. Alwaysverify current medications with the patient. sucralfate (CARAFATE) 1 GM tablet TK 1 T QID 0 9 Active simethicone (GAS-X) 80 MG chew tablet Take 80 mg by mouth Active albuterol HFA (PROVENTIL;VENTOLI N;PROAIR) 108 (90 Base) MCG/ACT inhaler INL 1 TO 2 PFS PO Q 4 H PRF SOB 1 Inhaler 11 9 Active fluticasone propionate (FLONASE) 50 MCG/ACT nasal spray Viola 2 sprays into each nostril once daily 15.8 g 11 9 Active hyoscyamine 0.125 MG tabletIndications: Acute diverticulitis Take 1 tablet by mouth every 4 hours as needed for Spasms 30 tablet 0 Active promethazine (PHENERGAN) 25 MG tabletIndications: Acute diverticulitis Take 1 tablet by mouth every 6 hours as needed for Nausea/Vomiti ng 20 tablet 0 Active ipratropium (ATROVENT) 0.06 % nasal spray Viola 2 sprays into each nostril 3 times daily 15 mL 0 Active cyclobenzaprine (FLEXERIL) 10 MG tablet Take 10 mg by mouth 3 times daily as needed 0 Active alfuzosin CR 24hr (UROXATRAL) 10 MG tablet Take 1 tablet by mouth once daily 30 tablet 3 0 Active omeprazole (PRILOSEC) 20 MG capsule Take 1 capsule by mouth once daily 30 capsule 0 Active predniSONE (DELTASONE) 50 MG tabletIndications: Allergic to IV contrast TAKE 1 TAB @ 13 HRS, 7 HRS, AND [address] 3 tablet 0 Active diphenhydrAMINE (BENADRYL) 50 MG capsuleIndications :Allergic to IV contrast TAKE [address] 1 capsule 0 Active hydrALAZINE (APRESOLINE) 25 MG tablet Take 1 tablet by mouth 3 times daily 90 tablet 0 Active hydroCHLOROthiazid e (MICROZIDE) 12.5 MG capsule Take 1 capsule by mouth once daily 30 capsule 0 Active trandolapril (MAVIK) 2 MG tablet Take 1 tablet by mouth once daily 30 tablet 1 0 Active polyethylene glycol (GOLYTELY;NULYTELY ) 240 g solution Drink 1/2 of prep at 5pm the night before test. Finish the prep at 4am the day of test. 4000 mL 0 Active hyoscyamine 0.125 MG tabletIndications: Acute diverticulitis Take 1 tablet by mouth every 6 hours as needed for Spasms 50 tablet 1 0 Active atenolol (TENORMIN) 100 MG tabletIndications: Essential hypertension Take 1 tablet by mouth once daily This will be last times this will be ordered by YAIMA since he has been dismissed from practice. 30 tablet 3 0 Active ciprofloxacin (CIPRO) 500 MG tabletIndications: Acute diverticulitis Take 1 tablet by mouth 2 times daily 20 tablet 0 Active ALPRAZolam (Xanax) 1 MG tabletIndications: Anxiety Take 1 (one) tablet by mouth 2 times daily as needed for Anxiety Reasons: Feeling Anxious 14 tablet 3 Active Active Problems Problem Noted Date Diagnosed [...] (10/31/2019): Scheduled appointment with psychiatric, April 01, [facility] in [place]. Microcytic anemia 07/02/2015 SOB (shortness of breath) [...] 08/01/2019 Overview (07/21/2015): Dizziness 12/05/2009 08/01/2019 Immunizations Immunization Administration Dates Next Due TD VACCINE 09/13/2011 [...] on file Legal Sex Male 6:27 AM MANAGER PACKAGING Gender Identity Not on file Sexual Orientation [...] 50+ (1 of 2 - PCV) 02/09/1991 DIABETES-STATIN 2012 DIABETES RETINOPATHY SCREENING 09/01/2019 DIABETES-HGB A1C 01/30/2020 08/01/2019 DIABETES-FOOT EXAM WITH MONOFILAMENT 08/01/2020 08/01/2019 DTAP/TDAP/TD VACCINES (2 - Td or Tdap) 09/13/2021 09/13/2011 ZOSTER VACCINE (1 of 2) 02/09/2022 DIABETES-SERUM CREATININE 11/10/20232022, 11/10/2022, 09/02/2022, Additional history exists COVID-19 VACCINE ( season) 2024 DEPRESSION SCREENING 09/13/2024 DIABETES - URINE PROTEIN SCREENING 09/13/2024 10/20/2019 INFLUENZA VACCINE (Season Ended) 2025 HEPATITIS C SCREENING Completed 10/20/2019 HIB VACCINE [...] URINE RANDOM PANEL Routine 10/20/2019 2:41 PM MANAGER PACKAGING Type 2 diabetes mellitus without complication, without long-term current use of insulin COMPREHENSIVE METABOLIC PANEL Routine 10/20/2019 2:41 PM MANAGER PACKAGING Type 2 diabetes mellitus without complication, without long-term current use of insulin Obesity with serious comorbidity, unspecified classification, unspecified obesity type HEPATITIS C AB W RFLX VERIFICATION Routine 10/20/2019 2:41 PM MANAGER PACKAGING Type 2 diabetes mellitus without complication, without long-term current use of insulin Need for hepatitis C screening test HEMOGLOBIN A1C - POINT OF CARE (AMB) [facility] Routine 08/01/2019 Type 2 diabetes mellitus without complication, without long-term current use of insulin from Last 3 Months or Most Recently Relevant to Health Maintenance Results * HEPATITIS C AB W RFLX VERIFICATION (10/20/2019 2:41 PM MANAGER PACKAGING) Hepatitis C Antibody <0.1 0.0 - 0.9 s/co ratio 10/21/2019 8:18 AM MANAGER PACKAGING [facility] ([facility]) Blood BLOOD SPECIMEN / Unknown Lab Venipuncture / Unknown 10/20/2019 2:41 PM MANAGER PACKAGING 10/20/2019 3:01 PM MANAGER PACKAGING Narrative [facility] ([facility]) - 10/21/2019 8:18 AM MANAGER PACKAGING Performed at: [facility] - [facility] [address] [place], [place] [id number] Hydrocrane Operator: Carlos Woods PhD, Phone: [phone] us Radha Palafox JUVENILE CORRECTIONS OFFICER-MEDICAL PAYMENT POSTER LAB - CHEMISTRY ORD ERABLES Final Result [facility] ([facility]) [address] [place] [address] * (ABNORMAL) MICROALB/CREAT RATIO URINE RANDOM PANEL (10/20/2019 2:41 PM MANAGER PACKAGING) Albumin Random Urine 65.0 Not Established mcg/mL 10/20/2019 4:57 PM [facility] Creatinine Urine 143 Not Established mg/dL 10/20/2019 4:57 PM [facility] Comment: Result obtained by dilution. Urine Albumin/Creati nine Ratio 45(H) <30 mg/g 10/20/2019 4:57 PM [facility] Urine URINE SPECIMEN OBTAINED BY CLEAN CATCH PROCEDURE / Unknown Collection / Unknown 10/20/2019 2:41 PM MANAGER PACKAGING 10/20/2019 3:01 PM MANAGER PACKAGING Radha Palafox JUVENILE CORRECTIONS OFFICER-MEDICAL PAYMENT POSTER LAB - URINE SPECIMEN TRANSPORTER RY ORDERABLES Final Result Performing Organization Address City/State/[facility] Co de Phone Number [address] [phone] * (ABNORMAL) COMPREHENSIVE METABOLIC PANEL (10/20/2019 2:41 PM MANAGER PACKAGING) BUN 11 7 - 26 mg/dL 10/20/2019 [...] 3.4 - 5.0 g/dL 10/20/2019 3:33 PM [facility] Bilirubin Total 1.7(H) 0.2 - [...] Lab Venipuncture / Unknown 10/20/2019 2:41 PM MANAGER PACKAGING 10/20/2019 3:01 PM MANAGER PACKAGING Result [facility] Radha Palafox JUVENILE CORRECTIONS OFFICER-MEDICAL PAYMENT POSTER LAB - CHEMISTRY ORD ERABLES Final Result Performing Organization Address [facility]/State/[facility] Co de Phone Number [facility] [address] [place] [address] * HEMOGLOBIN A1C - POINT OF CARE (AMB) U (08/01/2019) Hemoglobin A1c POCT 7.5 BLOOD SPECIMEN / Unknown 08/01/2019 Radha Palafox JUVENILE CORRECTIONS OFFICER-MEDICAL PAYMENT POSTER LAB - POINT OF CARE ORDERABLES Final Result from Last 3 Months or Most Recently Relevant to Health Maintenance Insurance [facility] [address] [id number]
--- OUTSIDE RECORDS SUMMARY | 2024-12-24 18:30 | XMS_ITS | Encounter Summary ---
Author Organization [facility] Address [address] [facility] [place] [address] Care Team Providers Care Software Systems Analyst Name Role Phone Unavailable Primary Care Provider Unavailabl e Reason for Visit * Reason Onset Date Comments Medication Issue 10/24/2019 Encounter Details Date Type Department Care Team (Late st Contact Info) Description 10/24/2019 Telephone [facility] [address] [facility] [address] [place] [address] Radha Palafox APRN-CNP [address] OF [facility] [place] [phone] Medication Issue Social History Tobacco Use Types Packs/Day Years Used Date Smoking Tobacco: Former Smokeless Tobacco: Never Alcohol Use Standard Drinks/Week Comments No 0 (1 standard drink = 0.6 oz pur e alcohol) Sex and Gender Information Value Date Recorded Sex Assigned at Not on file Legal Sex Male 6:27 AM BISQUE PLACER Gender Identity Not on file Sexual Orientation Not on file documented as of this encounter Miscellaneous Notes * Telephone Encounter - Radha Palafox APRN-CNP - 10/24/2019 5:44 PM BISQUE PLACER Called patient. Again talking about his urinary [...] happy with anyone he gets. MELISA Diaz UE PLACER * Telephone Encounter - Mallory Flores RN - 10/24/2019 2:47 PM CST Patient calling again today He is complaining of being lightheaded. Please see below message UE PLACER * Telephone Encounter - Mallory Flores RN - 10/24/2019 2:27 PM CST Patient calling and he is out xanax and psychiatrist will not refill He wants to speak with you about this [phone] UE PLACER documented in this encounter Plan of Treatment Not on file documented as of this encounter Visit Diagnoses Not on filedocumented in this encounter
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
--- OUTSIDE RECORDS SUMMARY | 2024-12-24 18:30 | XMS_ITS | Encounter Summary ---
Author Organization [facility] Address [address] [place] [address] Care Team Providers Care Brothel Keeper Name Role Phone Unavailable Primary Care Provider Unavailabl e Reason for Visit * Reason Onset Date Comments Blood Pressure 12/01/2019 Encounter Details Date Type Department Care Team (Late st Contact Info) Description 12/01/2019 Telephone [facility] [address] [facility] [address] [place] [address] Radha Palafox, SCALE TESTER-PAIN COORDINATOR [address] DIV OF [facility] [place] [phone] Blood Pressure Social History Tobacco Use Types Packs/Day Years Used Date Smoking Tobacco: Former Smokeless Tobacco: Never Alcohol Use Standard Drinks/Week Comments No 0 (1 standard drink = 0.6 oz pur e alcohol) Sex and Gender Information Value Date Recorded Sex Assigned at Not on file Legal Sex Male 6:27 AM CROP SETTING OUT MACHINE OPERATOR Gender Identity Not on file Sexual Orientation Not on file documented as of this encounter Miscellaneous Notes * Telephone Encounter - Venus Powell RN - 12/01/2019 10:51 AM CDT Carlos Mcgee was transferred to ne. He is demanding to speak to someone [...] He would like additional medication sent to [facility] in [place], [place]. Mallory in the Call Center stated [...]
--- OUTSIDE RECORDS SUMMARY | 2024-12-24 18:31 | XMS_ITS | Encounter Summary ---
Author Organization [facility] Address [address] [place] [address] Care Team Providers Care Hog Handler Name Role Phone Howard Trinidad MD Primary [...] on file Legal Sex Male 4:57 AM FRUIT TESTER Gender Identity Not on file Sexual Orientation Not on file documented as of this encounter Plan of Treatment Not on file documented as of this encounter Visit Diagnoses Diagnosis Unspecified sinusitis (chronic)- Primary documented in this encounter Care Teams Hog Handler Relationship Specialty Start Date End Date Howard Trinidad MD PCP - General Family Practice 01/25/16 01/26/16 documented as of this encounter
--- OUTSIDE RECORDS SUMMARY | 2024-12-24 18:31 | XMS_ITS | Clinical Summary ---
Author Organization [facility] Address [address] [place] [address] Phone Care Team Providers Care Feed Project Engineer Name Role Phone Unavailable Primary Care [...]
--- OUTSIDE RECORDS SUMMARY | 2024-12-24 18:31 | XMS_ITS | Encounter Summary ---
Author Organization [email or web address] Address [address] [place] [address] Care Team Providers Care Blankbook Stitching Machine Operator Name Role Phone Howard Trinidad [...] on file Legal Sex Male 4:57 AM VEHICLE DELIVERY WORKER Gender Identity Not on file Sexual Orientation Not on file documented as of this encounter Plan of Treatment Not on file documented as of this encounter Visit Diagnoses Diagnosis Depressive disorder, not elsewhere classified- Primary documented in this encounter Care Teams Blankbook Stitching Machine Operator Relationship Specialty Start Date End Date Howard Trinidad MD PCP - General Family Practice 01/25/16 01/26/16 documented as of this encounter
--- OUTSIDE RECORDS SUMMARY | 2024-12-24 18:31 | XMS_ITS | Encounter Summary ---
Author Organization [employer] Address [address] [place] [address] Care Team Providers Care Carrot Harvester Name Role Phone Howard Trinidad MD Primary [...] on file Legal Sex Male 4:57 AM MEDICAL ASSEMBLY Gender Identity Not on file Sexual Orientation Not on file documented as of this encounter Plan of Treatment Not on file documented as of this encounter Visit Diagnoses Diagnosis Pain in limb- Primary documented in this encounter Care Teams Carrot Harvester Relationship Specialty Start Date End Date Howard Trinidad MD PCP - General Family Practice 01/25/16 01/26/16 documented as of this encounter
--- OUTSIDE RECORDS SUMMARY | 2024-12-24 18:31 | XMS_ITS | CONTINUITY OF CARE DOCUMENT ---
Author Name christian gonzales Address Unknown Organization [facility] Address [address] [place] [address] [address] [place] [address] Phone [phone] Care Team Providers Care Central Office Equipment Installer Name Role Phone Emily Garcia MD Unavailable [phone] Emily Garcia MD Unavailable [phone] PROBLEMS Condition Status Date Provider Notes Chest pain active Emily Garcia MD Sleep apnea active Emily Garcia MD Hypertension active Emily Garcia MD Hyperlipidemia active Emily Garcia MD Diabetes, Type 2 active Emily Garcia MD ENCOUNTERS Date Type Provider Location Encounter Diagnosis - In-person encounter Office Visit Emily Garcia MD [place] [facility] Chest painDiabetes, Type 2HyperlipidemiaHyp ertensionSleep apnea [...] High 3 cholesterol, serum 182 mg/dL [facility] [phone]/10/2 3 basophil count, absolute 0.0 x10E3/uL [facility] [...] Estab. 3 platelet count 208 X10E3/UL [facility] [phone]/10/2 3 red blood cell distribution width 17.6 [...] 3.5-5.2 3 sodium, serum 142 mmol/L [employer] [phone]/10/2 3 urea nitrogen/creatinine ratio, serum 10 [employer] [...] Payer name Policy type / Coverage type [place] [employer]ICA[employer] (2) Medicaid [id number] ADVANCE DIRECTIVES Name Date DISCUSSED - NO DECISION MADE TREATMENT PLAN Date Name Performer [id number],S, Cholesterol, Total 182 mg/dL 100-199 Triglycerides [H] 205 mg/dL 0-149 HDL Cholesterol [L] 21 mg/dL >39 ! VLDL Cholesterol Aristides 37 mg/dL 5-40 LDL Chol Calc ([facility]) [H] 124 mg/dL 0-99 Recommend dieatary modifications, see if triglycerides imrpoves, may need to start fish oil. Emily Garcia MD [id number],S, Emily aiken MD [id number],C, n eeds to get w/u done a pparanetly had a cath done 3 yrs ago at [facility] a nd needs to get new /u will do nuclear sress test and echo July 16, 2021 nuclear was denied by insurance s o he had stress echo done but was suboptimal Emily Garcia MD [id number],C, n eeds sleep study done no recent w/u done Emily Garcia MD [id number],C, Cholesterol, Total 182 mg/dL 100-199 Triglycerides [H] 205 mg/dL 0-149 HDL Cholesterol [L] 21 mg/dL >39 ! VLDL Cholesterol Aristides 37 mg/dL 5-40 LDL Chol Calc (NIH) [H] 124 mg/dL 0-99 Recommend dieatary modifications, see if triglycerides imrpoves, may need to start fish oil. Emily Garcia MD [id number],S, Emily aiken MD [id number],C, n eeds to get w/u done a pparanetly had a cath done 3 yrs ago at the [facility] a nd needs to get new /u will do nuclear sress test and echo Emily Garcia MD [id number],C, h as angioedema not able to get amelia July 07, 2021 A 1C was 7.1,needs PCP and endcorine eval Emily Garcia MD [id number],C,n eeds sleep study done no recent w/u done Emily Garcia MD [id number],C,needs blood w ork Emily Garcia MD [id number],S,o n atenolol B P today: 152/80 Emily Garcia MD [id number],C,h as angioedema not able to get amelia Emily Garcia MD [id number],C,n eeds to get w/u done a pparanetly had a cath done 3 yrs ago at [facility] a nd needs to get new /u [...] a cath done 3 yrs ago at [facility] a nd needs to get new /u [...] Aristides 37 mg/dL 5-40 LDL Chol Calc ([facility]) [H] 124 mg/dL 0-99 Recommend dieatary modifications, see if triglycerides imrpoves, may need to start fish oil. Emily Garcia MD Telehealth Emily Garcia MD Telehealth: n eeds to get w/u done a pparanetly had a cath done 3 yrs ago at [facility] a nd needs to get new /u [...] a cath done 3 yrs ago at the [facility] a nd needs to get new /u [...]
--- OUTSIDE RECORDS SUMMARY | 2024-12-24 18:31 | XMS_ITS | Encounter Summary ---
Author Organization [employer] Address 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
--- OUTSIDE RECORDS SUMMARY | 2024-12-24 18:31 | XMS_ITS | Encounter Summary ---
Author Organization [employer] Address [address] [place] [address] Care Team Providers Care Clinical Sciences Professor Name Role Phone Howard Trinidad MD Primary Care Provider Un available Encounter Details Date Type Department Care Team (Late st Contact Info) Description 04/27/2009 Outpatient Historical [facility] [place], Authorized P NO ADDRESS ON FILE Balta Sahu MD [address] [place] [address] [place] [address] Edin Marcum MD [facility] [place] [address] Social History Tobacco Use Types Packs/Day Years Used Date Smoking Tobacco: Never Assessed Sex and Gender Information Value Date Recorded Sex Assigned at Not on file 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 FINDINGS: The heart and mediastinum are normal. There is no infiltrate, contusion, pneumothorax or pleural fluid. The visualized bony thorax is normal. IMPRESSION: Normal AP chest. . Dictated by: LEANDER GORDON 04/27/2009 07:51 Electronically signed by: LEANDER GORDON 04/27/2009 08:07 Transcribed: 04/27/2009 07:56 SMM Procedure Note Leander Gordon - 04/27/2009 [address] [place] [place], [place] [address] Admit Date: 04/27/2009 CARLOS KELLY Sex: M Admit Prov: BALTA SAHU Date: 1970 Primary Care Prov: CMRN: [id number] [facility] [address] [place] [address] IMAGING SERVICES Ordering Prov: N/A Interpretation PORTABLE [...] CDT) MCH 27.8 27.2 - 32.6 pg [facility] MPV 9.7 9.3 - 12.4 fL [facility] HEMATOCRIT 42.4 40.0 - 48.0 % [facility] RDW-STDEV 41.9 37.1 - 48.7 fL [facility] RBC 5.29 4.50 - 5.40 M/uL [facility] MCHC 34.7 31.5 - 35.5 % [facility] MCV 80.2(L) 82.0 - 99.0 fL [facility] PLATELETS 187 140 - 350 K/uL [facility] HEMOGLOBIN 14.7 13.6 - 16.5 g/dL [facility] RDW 14.7(H) 11.5 - 14.5 % [facility] WBC 7.2 4.0 - 9.8 K/uL [facility] BASOPHILS 0 0 - 2 % [facility] BASOPHILS ABSOLUTE 0.02 0.00 - 0.20 K/uL [facility] MONOCYTES 8 3 - 13 % [facility] MONOCYTE ABSOLUTE 0.56 0.10 - 1.30 K/uL [facility] NEUTROPHILS 56 45 - 70 % [facility] NEUTROPHIL ABSOLUTE 4.00 1.90 - 7.00 K/uL [facility] EOSINOPHILS 2 0 - 7 % [facility] EOSINOPHIL ABSOLUTE 0.16 0.00 - 0.70 K/uL [facility] LYMPHOCYTES 34 16 - 45 % [facility] LYMPHOCYTE ABSOLUTE 2.43 0.70 - 4.50 K/uL [facility] Blood specimen (specimen) 04/27/2009 12:08 AM CDT 04/27/2009 12:13 AM CDT Edin Marcum MD HEMATOLOGY ORDERABLES Edited Performing Organization Address [facility] Co de Phone Number [facility] CLIA# [id number] [address] [place] [address] * CARDIAC ENZYMES (04/27/2009 12:08 AM CDT) [facility] TROPONIN T <0.01 <=0.03 ng/mL [facility] TROPONIN T INTERP Negative [facility] Blood specimen (specimen) 04/27/2009 12:08 AM CDT 04/27/2009 12:13 AM CDT Edin Marcum MD CHEMISTRY ORDERABLES Edited Performing Organization Address [facility] de Phone Number [facility] CLIA# [id number] [address] [place] [address] * (ABNORMAL) COMPREHENSIVE METABOLIC PANEL (04/27/2009 12:08 AM CDT) CREATININE 0.92 0.67 - 1.17 mg/dL [facility] ALT 130(H) 0 - 41 U/L [facility] SODIUM 141 135 - 145 mmol/L [facility] ALKALINE PHOSPHATASE 71 40 - 129 U/L [facility] CO2 32(H) 22 - 30 mmol/L [facility] BILIRUBIN TOTAL 1.2(H) 0.2 - 1.0 mg/dL [facility] POTASSIUM 3.7 3.5 - 4.9 mmol/L [facility] TOTAL PROTEIN 8.3 6.3 - 8.6 g/dL [facility] GLUCOSE 81 65 - 99 mg/dL [facility] AST 118(H) 12 - 38 U/L [facility] BUN 10 6 - 20 mg/dL [facility] CALCIUM 9.7 8.6 - 10.2 mg/dL [facility] ALBUMIN 4.6 3.4 - 4.8 g/dL [facility] CHLORIDE 101 96 - 108 mmol/L [facility] GFR, >60 >=60 mL/min/1. 7 sq meter [facility] GFR >60 >=60 mL/min/1. 7 sq meter [facility] Comment: Modification of Diet in Renal Disease (MDRD) study formula. Estimated GFR rate interpretative information for both Americans and non- Americans is available on the [facility] Intranet at: [email or web address] Select: Lab Policies and Procedures Select: Reference Ranges - GFR Blood specimen (specimen) 04/27/2009 12:08 AM CDT 04/27/2009 12:13 AM CDT us Edin Marcum MD CHEMISTRY ORDERABLES Edited [facility] CLIA# [id number] [address] [place] [address] documented in this encounter Visit Diagnoses Not on filedocumented in this encounter Care Teams Clinical Sciences Professor Relationship Specialty Start Date End Date Howard Trinidad MD PCP - General Family Practice 01/25/16 01/26/16 documented as of this encounter
--- OUTSIDE RECORDS SUMMARY | 2024-12-24 18:31 | XMS_ITS | Clinical Summary ---
Author Organization [facility] Address [address] [place] [address] Care Team Providers Care Oil And Gas Field Technician Name Role Phone None, Provider MD Primary [...] Vaccine (1 - 2023-2 5 season) 2024 Hepatitis C Completed 10/20/2019 Meningococcal B Vaccine Aged Out No l onger eligible based on patient's age to complete this topic Meningococcal Vaccine Aged Out No mode jeremiah eligible based on patient's age to complete this topic Pneumococcal Vaccine: Pediat rics (0 to 5 Years) and At-Risk Patients (6 to 49 Years) Aged Out No longer eligi ble based on patient's age to complete this topic RSV Immunizations Under 20 Months Aged Out No longer eligible based on patient's age to complete this topic Insurance BAKER Care Teams Oil And Gas Field Technician Relationship Specialty Start Date End Date None, Provider, PCP - General 12/31/19
--- OUTSIDE RECORDS SUMMARY | 2024-12-24 18:31 | XMS_ITS | Encounter Summary ---
Author Organization [employer] Address 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
--- OUTSIDE RECORDS SUMMARY | 2024-12-24 18:31 | XMS_ITS | Encounter Summary ---
Author Organization [employer] Address 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
--- OUTSIDE RECORDS SUMMARY | 2024-12-24 18:31 | XMS_ITS | Encounter Summary ---
Author Organization [employer] Address 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
--- OUTSIDE RECORDS SUMMARY | 2024-12-24 18:31 | XMS_ITS | Encounter Summary ---
Author Organization [employer] Address 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
--- OUTSIDE RECORDS SUMMARY | 2024-12-24 18:31 | XMS_ITS | Encounter Summary ---
Author Organization [facility] Address [address] [place] [address] Care Team Providers Care Mechanical Service Technician Name Role Phone Jagdeep Sanford DO Primary Care Provider [phone] Miscellaneous, Not In File Unavailable Unava ilable Charanjit Sheffield MD Primary Care Provider [phone] Carlos Gamboa MD Primary Care Provid er Unknown, Notinfile Primary Care Provider Unavail able No, Physician Primary Care Provider [phone] Unknown, Notinfile Primary Care Provider Unavail able No, Physician Primary Care Provider [phone] Unknown, Notinfile Primary Care Provider Unavail able Adin Lino MD Primary Care Provider + Unknown, Notinfile Primary Care Provider Unavail able Encounter Details Date Type Department Care Team (Late st Contact Info) Description 11/29/[address] [facility] [address] [place] [address] Herbie Ramsey RRT Social History Tobacco Use [...] Legal Sex Male 1:40 AM DIRECTOR OF CAREER SERVICES Gender Identity Not on file Sexual Orientation [...] COVID: Suspected 10/11/2023 10/11/2023 10/11/2023 5:30 PM DIRECTOR OF CAREER SERVICES COVID: Suspected 10/22/2024 10/22/2024 10/22/2024 5:53 PM DIRECTOR OF CAREER SERVICES Influenza, adult 10/22/2024 10/22/2024 10/29/2024 3:05 AM DIRECTOR OF CAREER SERVICES documented as of this encounter Care Teams Mechanical Service Technician Relationship Specialty Start Date End Date Jagdeep Sanford DO [address] [place] [id number] PCP - General Family Medicine 11/16/19 01/20/20 Charanjit Sheffield MD PCP - General 01/21/20 09/29/20 Carlos Gamboa MD [address] [place] [id number] PCP - General Family Medicine 09/30/20 05/07/21 Unknown, Notinfile PCP - General 05/08/21 11/26/21 No, Physician PCP - General 11/27/21 01/13/23 Unknown, Notinfile PCP - General 01/14/23 01/17/24 No, Physician PCP - General 01/18/24 04/21/24 Unknown, Notinfile PCP - General 04/22/24 07/30/24 Adin Lino MD [address] [place] [address] PCP - General Internal Medicine 07/31/24 07/31/24 Unknown, Notinfile PCP - General 08/01/24 Miscellaneous, Not In File 11/16/19 documented as of this encounter
--- OUTSIDE RECORDS SUMMARY | 2024-12-24 18:31 | XMS_ITS | Encounter Summary ---
Author Organization [employer] Address [address] [place] [address] Care Team Providers Care Electroneurodiagnostic Technician Name Role Phone Howard Trinidad MD Primary Care Provider Un available Encounter Details Date Type Department Care Team (Late st Contact Info) Description 03/02/2004 Outpatient Historical [facility] Ian GauthierDO [address] [place] [address] Er, Authorized P NO ADDRESS ON FILE ANXIETY STATE NOS (Primary Dx) Social History Tobacco Use Types Packs/Day Years Used Date Smoking Tobacco: Never Assessed Sex and Gender Information Value Date Recorded Sex Assigned at Not on file 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
--- OUTSIDE RECORDS SUMMARY | 2024-12-24 18:31 | XMS_ITS | Patient Health Record ---
Author Organization [facility] Address [address] [address] Care Team Providers Care Credit Risk Management Director Name Role Phone Charanjit Sheffield Primary Care Provider Allergies Allergen (clinical drug ingredient) Drug/Non Drug [...] Once a day for 30 days Active Ozkbbsyf-Kqbwftfph-Sgusycjf 0.1 % 1 application into the lower [...] Problem Status W/U Status Risk Notes Problem 728827249221 Type 2 diabetes mellitus with other specified complication (E11.69) Active confirmed Problem 623229977 Mixed hyperlipidemia (E78.2) Active confirmed Problem 105884551 Nausea (R11.0) Active confirmed Problem 67747913 Anxiety (F41.9) Active confirmed Problem 699291818 Gastroesophageal reflux disease without esophagitis (K21.9) Active confirmed Problem 654062717 Mild intermitten t asthma without complication (J45.20) Active confirmed Problem 92535291 Essential hypertension (I10) Active confirmed Problem 635663828 Vertigo (R42) Active confirmed Problem 93511281 Neck pain (M54.2) Active confirmed Problem Abdominal pain (60938674) Abdominal pain (R10.9) Active confirmed Problem Depression (870567836) Depression (F32.9) Active confirmed Problem 093112700 Cervical spondylosis (M47.812) Active confirmed Problem Pain in right arm (903724070) Right arm pain (M79.601) Active confirmed Problem 819397341 Type 2 diabetes mellitus without complication, without long-term current use of insulin (E11.9) Active confirmed Problem History of gastrointestinal disease (978023880) History of diverticulosis (Z87.19) Active confirmed Problem 85558597 Allergic rhiniti s due to other allergic trigger, unspecified seasonality (J30.89) Active confirmed Problem 884646661 S/P cholecystectomy (Z90.49) Active confirmed Problem 86853931 Recurrent major depressive disorder, in partial remission (F33.41) Active confirmed Problem 96332837 Non-seasonal allergic rhinitis, unspecified trigger (J30.89) Active confirmed Problem 046419168 Elevated LFTs (R79.89) Active confirmed Problem 14679004 Discomfort of le ft eye (H57.12) Active confirmed Plan Of Treatment No Information Insurance Providers Payer Name Payer Address Payer Phone Subscriber Number Group Number Insured Name Patient Relationship to Insured Coverage Start Date Coverage End Date [address] [id number] WADE KELLY Self - patient is the insured 9 Medical (General) History Medical History History ICD Code sinusitis Vertigo Asthma Sleep Apnea diverticulitis fatty liver 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
--- OUTSIDE RECORDS SUMMARY | 2024-12-24 18:31 | XMS_ITS | Encounter Summary ---
Author Organization [employer] Address 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
--- OUTSIDE RECORDS SUMMARY | 2024-12-24 18:31 | XMS_ITS | Encounter Summary ---
Author Organization [employer] Address [address] [place] [address] Care Team Providers Care Fullerette Name Role Phone Howard Trinidad MD Primary Care Provider Un available Encounter Details Date Type Department Care Team (Late st Contact Info) Description 03/02/2005 Outpatient Historical [facility] Support Serv. (Adt Cardiology-[facility]) [address] 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
--- OUTSIDE RECORDS SUMMARY | 2024-12-24 18:31 | XMS_ITS | Encounter Summary ---
Author Organization [employer] Address 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
--- OUTSIDE RECORDS SUMMARY | 2024-12-24 18:31 | XMS_ITS | Encounter Summary ---
Author Organization [employer] Address 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
--- OUTSIDE RECORDS SUMMARY | 2024-12-24 18:31 | XMS_ITS | Encounter Summary ---
Author Organization [facility] Address [address] [place] [address] Care Team Providers Care Supervisor Central Supply Name Role Phone None, Provider Primary Care Provider Unavaila ble Encounter Details Date Type Department Care Team (Late st Contact Info) Description 01/04/2020 Telephone [facility] Care Management [place], [place] [id number] Lee Ann Aguilar LCSW Social History Tobacco [...] documented as of this encounter Care Teams Supervisor Central Supply Relationship Specialty Start Date End Date None, Provider, PCP - General 12/31/19 documented as of this encounter
--- OUTSIDE RECORDS SUMMARY | 2024-12-24 18:31 | XMS_ITS | Encounter Summary ---
Author Organization [employer] Address [address] [place] [address] Care Team Providers Care Cash Control Specialist Name Role Phone Howard Trinidad MD Primary Care Provider Un available Encounter Details Date Type Department Care Team (Late st Contact Info) Description 07/01/2006 Outpatient Historical [facility] Support Serv. (Adt Cardiology-[facility]) [address] [place] [address] Yash Bella MD Social History Tobacco Use Types Packs/Day Years Used Date Smoking Tobacco: Never Assessed Sex and Gender Information Value Date Recorded Sex Assigned at Not on file Legal Sex Male 4:57 AM DIRECT CARE COUNSELOR Gender Identity Not on file Sexual Orientation Not on file documented as of this encounter Plan of Treatment Not on file documented as of this encounter Visit Diagnoses Not on filedocumented in this encounter Care Teams Cash Control Specialist Relationship Specialty Start Date End Date Howard Trinidad MD PCP - General Family Practice 01/25/16 01/26/16 documented as of this encounter
--- OUTSIDE RECORDS SUMMARY | 2024-12-24 18:31 | XMS_ITS | Encounter Summary ---
Author Organization [employer] Address 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
--- OUTSIDE RECORDS SUMMARY | 2024-12-24 18:31 | XMS_ITS | Encounter Summary ---
Author Organization [employer] Address 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
--- OUTSIDE RECORDS SUMMARY | 2024-12-24 18:31 | XMS_ITS | Encounter Summary ---
Author Organization [employer] Address [address] [place] [address] Care Team Providers Care Cold Rolling Supervisor Name Role Phone Howard Trinidad MD Primary Care Provider Un available Encounter Details Date Type Department Care Team (Late st Contact Info) Description 02/23/2007 Outpatient Historical [facility] Ian GauthierDO [id number] [place] [address] Er, Authorized P NO ADDRESS ON FILE Anxiety State, Unspecified (Primary Dx) Social History Tobacco Use Types Packs/Day Years Used Date Smoking Tobacco: Never Assessed Sex and Gender Information Value Date Recorded Sex Assigned at Not on file 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
--- OUTSIDE RECORDS SUMMARY | 2024-12-24 18:31 | XMS_ITS | Encounter Summary ---
Author Organization [employer] Address [address] [place] [address] Care Team Providers Care Human Resources Specialist Name Role Phone Howard Trinidad MD [...] on file Legal Sex Male 4:57 AM REPAIR MILLER Gender Identity Not on file Sexual Orientation [...] did not get a call back. Medications: [facility] review Medication reactions: epic review <<<<<<<< TRIAGE NOTE >>>>>>>> Triage Note: General Machinist Seema Cueva added this note on Dec [...] they will have to speak with his dance teacher because he is upset with the [...] on filedocumented in this encounter Care Teams Human Resources Specialist Relationship Specialty Start Date End Date Howard Trinidad MD PCP - General Family Practice 01/25/16 01/26/16 documented as of this encounter
--- OUTSIDE RECORDS SUMMARY | 2024-12-24 18:31 | XMS_ITS | Encounter Summary ---
Author Organization [employer] Address [address] [place] [address] Care Team Providers Care Human Resources Training Manager Name Role Phone Howard Trinidad MD Primary Care Provider Un available Encounter Details Date Type Department Care Team (Late st Contact Info) Description 06/03/2008 Outpatient Historical [facility] Er, Authorized P NO ADDRESS ON FILE Jose Soto MD [facility] [place] [address] Social History Tobacco Use Types Packs/Day Years Used Date Smoking Tobacco: Never Assessed Sex and Gender Information Value Date Recorded Sex Assigned at Not on file Legal Sex Male 4:57 AM CORRECTIONAL GUARD Gender Identity Not on file Sexual Orientation Not on file documented as of this encounter Plan of Treatment Not on file documented as of this encounter Visit Diagnoses Not on filedocumented in this encounter Care Teams Human Resources Training Manager Relationship Specialty Start Date End Date Howard Trinidad MD PCP - General Family Practice 01/25/16 01/26/16 documented as of this encounter
[2024-12-24 19:03] VITALS: BP 150/83; PULSE 87; RESP 16; TEMP 36.8; O2SAT 98
[2024-12-24 19:31] VITALS: BP 143/78; PULSE 62; RESP 17; O2SAT 100
--- NOTE | 2024-12-24 19:35 | ECG_ITS ---
Test Date: 2024-12-24 20:55:34 Measurements Intervals Maple Rate: 59 P: 0 AL: 165 QRS: 18 QRSD: 97 T: 37 QT: 398 QTc: 397 Interpretive Statements SINUS BRADYCARDIA BASELINE ARTIFACT- V5-V6 BORDERLINE ECG Compared to ECG 11/27/2024 10:23:21 HEART RATE HAS DECREASED Electronically Signed On 12-25-2024 06:21:05 CDT by Yonathan Ross D.O.
[2024-12-24 19:57] LABS: Basophils Percent Auto 0.6 % (0.2-1.2); Eosinophils Absolute Auto 0.1 K/mm3 (0-0.3); Eosinophils Percent Auto 2.5 % (0-4.4); Hematocrit 38.5 % (42.0-52.0); Immature Granulocyte Absolute 0.01 K/mm3 (0.00-0.031); Immature Granulocyte Percent A 0.2 % (0-0.5); Lymphocytes Absolute Auto 1.36 K/mm3 (0.9-3.2); Lymphocytes Percent Auto 26.4 % (18.3-44.2); Mean Corpuscular HGB Conc 28.6 g/dl (32-36); Mean Corpuscular Hemoglobin 19.9 pg (26-34); Mean Corpuscular Volume 69.5 fl (80-100); Mean Platelet Volume 9.1 fl (7.4-10.4); Monocytes Absolute Auto 0.4 K/mm3 (0.1-0.6); Monocytes Percent Auto 7.8 % (2.6-8.5); Neutrophils Absolute Auto 3.2 K/mm3 (1.3-6.7); Neutrophils Percent Auto 62.5 % (45.5-73.1); Platelet Count Result 186 k/mm3 (150-375); Red Blood Count 5.54 M/mm3 (4.6-6.20); Red Cell Distribution Width 19.1 % (11.5-14.5); White Blood Count 5.2 K/mm3 (4.5-10.0)
[2024-12-24 19:59] LABS: Add Urine Microscopic? YES; Appearance Urine Clear (Clear); Bilirubin Urine Negative (Negative); Blood Urine Negative (Negative); Color Urine Dark Yellow (Yellow); Glucose Urine UA Negative (Negative); Ketones Urine Trace mg/dL (Negative); Leukocyte Esterase Ur Negative LEU/UL (Negative); Nitrate Urine Negative (Negative); Protein Urine Negative (Negative); Specific Grav Ur 1.014 (1.001-1.035)
[2024-12-24 20:08] LABS: Alanine Aminotransferase 44 U/L (6-50); Albumin Level 4.5 g/dL (3.5-5.1); Alkaline Phosphatase 60 U/L (38-126); Anion Gap 11 mmol/L (4-12); Aspartate Amino Transferase 42 U/L (17-59); Bilirubin,Total 2.3 mg/dL (0.2-1.3); Blood Urea Nitrogen 10 mg/dL (9-20); Carbon Dioxide 29 mmol/L (22-30); Chloride 101 mmol/L (98-107); Estimated CRCL calculation 108 ml/min; Estimated Glomerular Filt Rate > 60; Glucose 132 mg/dL (65-110); Lactic Acid Reflex 0.9 mmol/L (0.7-2.0); Lipase 93 U/L (23-300); Magnesium 1.5 mg/dL (1.6-2.3); Potassium 3.5 mmol/L (3.4-5.0); Sodium 141 mmol/L (137-145)
[2024-12-24 20:11] LABS: Prothrombin Time 13.9 Seconds (11.1-14.7)
[2024-12-24 20:19] LABS: Troponin I < 0.012 ng/mL (0.000-0.034)
--- OUTSIDE RECORDS SUMMARY | 2024-12-24 20:23 | XMS_ITS | Encounter Summary ---
Author Organization [facility] Address [address] [facility] [place] [address] Care Team Providers Care Coater Associate Name Role Phone Unavailable Primary Care Provider Unavailabl e Reason for Visit * Reason Onset Date Comments Order 08/02/2019 Encounter Details Date Type Department Care Team (Late st Contact Info) Description 08/02/2019 Telephone [facility] [address] [place] [address] Radha Palafox, VICE PRESIDENT OF CUSTOMER SERVICE-WHEEL ROLLER [address] OF [facility] [place] [address] Order Social History Tobacco Use Types Packs/Day Years Used Date Smoking Tobacco: Former Smokeless Tobacco: Never Alcohol Use Standard Drinks/Week Comments No 0 (1 standard drink = 0.6 oz pur e alcohol) Sex and Gender Information Value Date Recorded Sex Assigned at Not on file Legal Sex Male 6:27 AM BRAIDER OPERATOR Gender Identity Not on file Sexual [...] Sleep study ordered and referral to GI. DER OPERATOR documented in this encounter Plan of Treatment Not on file documented as of this encounter Visit Diagnoses Diagnosis Loud snoring- Primary Class 3 severe obesity with serious comorbidity in adult, unspecified BMI, unspecified obesity type (HCC) Sleep apnea, unspecified type documented in this encounter
--- OUTSIDE RECORDS SUMMARY | 2024-12-24 20:23 | XMS_ITS | Encounter Summary ---
Author Organization [facility] Address [address] [place] [address] Care Team Providers Care Seed Pelleter Name Role Phone None, Provider Primary Care Provider Unavaila ble Encounter Details Date Type Department Care Team (Late st Contact Info) Description 01/04/2020 Telephone [facility] Care Management [place], [place] [id number] Lee Ann Aguilar LCSW Social History Tobacco [...] documented as of this encounter Care Teams Seed Pelleter Relationship Specialty Start Date End Date None, Provider, PCP - General 12/31/19 documented as of this encounter
--- OUTSIDE RECORDS SUMMARY | 2024-12-24 20:23 | XMS_ITS | Encounter Summary ---
Author Organization [employer] Address 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
--- OUTSIDE RECORDS SUMMARY | 2024-12-24 20:23 | XMS_ITS | Encounter Summary ---
Author Organization [employer] Address [address] [place] [address] Care Team Providers Care Art Historian Name Role Phone Howard Trinidad MD Primary Care Provider Un available Encounter Details Date Type Department Care Team (Late st Contact Info) Description 02/23/2007 Outpatient Historical [facility] Ian GauthierDO [address] [place] [address] Er, Authorized P NO ADDRESS ON FILE Anxiety State, Unspecified (Primary Dx) Social History Tobacco Use Types Packs/Day Years Used Date Smoking Tobacco: Never Assessed Sex and Gender Information Value Date Recorded Sex Assigned at Not on file Legal Sex Male 4:57 AM HOME 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
--- OUTSIDE RECORDS SUMMARY | 2024-12-24 20:23 | XMS_ITS | Encounter Summary ---
Author Organization [employer] Address 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
--- OUTSIDE RECORDS SUMMARY | 2024-12-24 20:23 | XMS_ITS | Encounter Summary ---
Author Organization [employer] Address [address] [place] [address] Care Team Providers Care Steel Erector Name Role Phone Howard Trinidad MD Primary Care Provider Un available Encounter Details Date Type Department Care Team (Late st Contact Info) Description 03/02/2005 Outpatient Historical [facility] Support Serv. (Adt Cardiology-[facility]) [address] [place] [address] Vignesh Gurrola MD NO ADDRESS ON FILE Social History Tobacco Use Types Packs/Day Years Used Date Smoking Tobacco: Never Assessed Sex and Gender Information Value Date Recorded Sex Assigned at Not on file Legal Sex Male 4:57 AM BEEF BONER Gender Identity Not on file Sexual Orientation Not on file documented as of this encounter Plan of Treatment Not on file documented as of this encounter Visit Diagnoses Not on filedocumented in this encounter Care Teams Steel Erector Relationship Specialty Start Date End Date Howard Trinidad MD PCP - General Family Practice 01/25/16 01/26/16 documented as of this encounter
--- OUTSIDE RECORDS SUMMARY | 2024-12-24 20:23 | XMS_ITS | Clinical Summary ---
Author Organization [facility] Address [address] [place] [address] Phone Care Team Providers Care Merchandising Coordinator Name Role Phone Unavailable Primary Care [...]
--- OUTSIDE RECORDS SUMMARY | 2024-12-24 20:23 | XMS_ITS | Encounter Summary ---
Author Organization [facility] Address [address] [place] [address] Care Team Providers Care Chief Medical Technologist Name Role Phone Unavailable Primary Care Provider Unavailabl e Reason for Visit * Reason Onset Date Comments FLU 11/27/2019 Encounter Details Date Type Department Care Team (Late st Contact Info) Description 11/27/2019 Telephone [facility] [address] [place] [address] Radha Palafox, OUTBOUND SUPERVISOR-LICENSING SERVICES CLERK [address] [facility] [address] DIV OF [facility] [place] [id number] FLU Social History Tobacco Use Types Packs/Day Years Used Date Smoking Tobacco: Former Smokeless Tobacco: Never Alcohol Use Standard Drinks/Week Comments No 0 (1 standard drink = 0.6 oz pur e alcohol) Sex and Gender Information Value Date Recorded Sex Assigned at Not on file Legal Sex Male 6:27 AM 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 Per surgery scheduler caller thinks he has coronavirus Attempted to call back and left vm. documented in this encounter Plan of Treatment Not on file documented as of this encounter Visit Diagnoses Not on filedocumented in this encounter
--- OUTSIDE RECORDS SUMMARY | 2024-12-24 20:23 | XMS_ITS | Encounter Summary ---
Author Organization [employer] Address [address] [place] [address] Care Team Providers Care Pretzel Twisting Machine Operator Name Role Phone Howard Trinidad [...] on file Legal Sex Male 4:57 AM LICENSING ENGINEER Gender Identity Not on file Sexual Orientation Not on file documented as of this encounter Plan of Treatment Not on file documented as of this encounter Visit Diagnoses Diagnosis Anxiety state, unspecified- Primary documented in this encounter Care Teams Pretzel Twisting Machine Operator Relationship Specialty Start Date End Date Howard Trinidad MD PCP - General Family Practice 01/25/16 01/26/16 documented as of this encounter
--- OUTSIDE RECORDS SUMMARY | 2024-12-24 20:23 | XMS_ITS | Encounter Summary ---
Author Organization [employer] Address [address] [place] [address] Care Team Providers Care Registered Land Surveyor Name Role Phone Howard Trinidad MD Primary [...] on file Legal Sex Male 4:57 AM TAPE RECORDING MACHINE OPERATOR Gender Identity Not on file Sexual Orientation Not on file documented as of this encounter Plan of Treatment Not on file documented as of this encounter Visit Diagnoses Diagnosis Abdominal pain, left lower quadrant- Primary documented in this encounter Care Teams Registered Land Surveyor Relationship Specialty Start Date End Date Howard Trinidad MD PCP - General Family Practice 01/25/16 01/26/16 documented as of this encounter
--- OUTSIDE RECORDS SUMMARY | 2024-12-24 20:23 | XMS_ITS | Encounter Summary ---
Author Organization [email or web address] Address [address] [place] [address] Care Team Providers Care Engine Repair Supervisor Name Role Phone Howard Trinidad MD Primary Care Provider Un available Encounter Details Date Type Department Care Team (Late st Contact Info) Description 03/02/2004 Outpatient Historical [facility] Ian GauthierDO [address] [place] [address] Er, Authorized P NO ADDRESS ON FILE ANXIETY STATE NOS (Primary Dx) Social History Tobacco Use Types Packs/Day Years Used Date Smoking Tobacco: Never Assessed Sex and Gender Information Value Date Recorded Sex Assigned at Not on file 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
--- OUTSIDE RECORDS SUMMARY | 2024-12-24 20:23 | XMS_ITS | Encounter Summary ---
Author Organization [employer] Address 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
--- OUTSIDE RECORDS SUMMARY | 2024-12-24 20:23 | XMS_ITS | Encounter Summary ---
Author Organization [facility] Address [address] [place] [address] Care Team Providers Care Financial Compliance Manager Name Role Phone Jagdeep Sanford DO Primary Care Provider [phone] Miscellaneous, Not In File Unavailable Unava ilable Charanjit Sheffield MD Primary Care Provider [phone] Carlos Gamboa MD Primary Care Provid er Unknown, Notinfile Primary Care Provider Unavail able No, Physician Primary Care Provider [phone] Unknown, Notinfile Primary Care Provider Unavail able No, Physician Primary Care Provider [phone] Unknown, Notinfile Primary Care Provider Unavail able Adin Lino MD Primary Care Provider + Unknown, Notinfile Primary Care Provider Unavail able Encounter Details Date Type Department Care Team (Late st Contact Info) Description 11/29/2019 Documentation [facility] [address] [place] [address] Herbie Ramsey RRT Social History Tobacco Use [...] on file Legal Sex Male 1:40 AM ELECTRICAL ENGINEERING INTERN Gender Identity Not on file Sexual Orientation Not on file COVID-19 Exposure Response Date Recorded In the last month, have you been in contact with someone who was confirmed or suspected to have Coronavirus / COVID-19? No / Unsure 11/28/2019 10:38 PM CDT documented as of this encounter Plan of Treatment Scheduled Procedures Name Priority Associated Diagnoses Date/Ti pa COLONOSCOPY Open Access Diverticulitis documented as of this encounter Visit Diagnoses Not on filedocumented in this encounter Additional Health Concerns Infection Onset Date Last Indicated Resolved Time COVID: Suspected 10/11/2023 10/11/2023 10/11/2023 5:30 PM ELECTRICAL ENGINEERING INTERN COVID: Suspected 10/22/2024 10/22/2024 10/22/2024 5:53 PM ELECTRICAL ENGINEERING INTERN Influenza, adult 10/22/2024 10/22/2024 10/29/2024 3:05 AM ELECTRICAL ENGINEERING INTERN documented as of this encounter Care Teams Financial Compliance Manager Relationship Specialty Start Date End Date Jagdeep Sanford DO [address] [place] [id number] PCP - General Family Medicine 11/16/19 01/20/20 Charanjit Sheffield MD PCP - General 01/21/20 09/29/20 Carlos Gamboa MD [address] [place] [id number] PCP - General Family Medicine 09/30/20 05/07/21 Unknown, Notinfile PCP - General 05/08/21 11/26/21 No, Physician PCP - General 11/27/21 01/13/23 Unknown, Notinfile PCP - General 01/14/23 01/17/24 No, Physician PCP - General 01/18/24 04/21/24 Unknown, Notinfile PCP - General 04/22/24 07/30/24 Adin Lino MD [address] [place] [id number] PCP - General Internal Medicine 07/31/24 07/31/24 Unknown, Notinfile PCP - General 08/01/24 Miscellaneous, Not In File 11/16/19 documented as of this encounter
--- OUTSIDE RECORDS SUMMARY | 2024-12-24 20:23 | XMS_ITS | Encounter Summary ---
Author Organization [email or web address] Address 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
--- OUTSIDE RECORDS SUMMARY | 2024-12-24 20:23 | XMS_ITS | Encounter Summary ---
Author Organization [facility] Address [address] [place] [address] Care Team Providers Care Boardmarker Name Role Phone Howard Trinidad MD Primary [...] on file Legal Sex Male 4:57 AM HAND MOUNTER Gender Identity Not on file Sexual Orientation [...] did not get a call back. Medications: [facility] review Medication reactions: epic review <<<<<<<< TRIAGE NOTE >>>>>>>> Triage Note: Processing Manager Seema Cueva added this note on Dec [...] they will have to speak with his chlorination operator because he is upset with the lies [...] on filedocumented in this encounter Care Teams Boardmarker Relationship Specialty Start Date End Date Howard Triindad MD PCP - General Family Practice 01/25/16 01/26/16 documented as of this encounter
--- OUTSIDE RECORDS SUMMARY | 2024-12-24 20:23 | XMS_ITS | Encounter Summary ---
Author Organization [employer] Address [address] [place] [address] Care Team Providers Care Pet Feeder Name Role Phone Howard Trinidad MD Primary Care Provider Un available Encounter Details Date Type Department Care Team (Late st Contact Info) Description 11/22/2007 Outpatient Historical [facility] [place], Authorized P NO ADDRESS ON FILE Arie Justice MD [address] [place] [address] [place] [address] Social History Tobacco Use Types Packs/Day Years Used Date Smoking Tobacco: Never Assessed Sex and Gender Information Value Date Recorded Sex Assigned at Not on file Legal Sex Male 4:57 AM RN TRANSITION Gender Identity Not on file Sexual Orientation Not on file documented as of this encounter Plan of Treatment Not on file documented as of this encounter Visit Diagnoses Not on filedocumented in this encounter Care Teams Pet Feeder Relationship Specialty Start Date End Date Howard Trinidad MD PCP - General Family Practice 01/25/16 01/26/16 documented as of this encounter
--- OUTSIDE RECORDS SUMMARY | 2024-12-24 20:23 | XMS_ITS | Encounter Summary ---
Author Organization [employer] Address [address] [place] [address] Care Team Providers Care Recreational Vehicle Repairer Name Role Phone Howard Trinidad MD Primary Care Provider Un available Encounter Details Date Type Department Care Team (Late st Contact Info) Description 03/17/2003 Outpatient Historical [facility] Venus Olivia MD [address] [place] [id number] [place], Authorized P NO ADDRESS ON FILE DEPRESSIVE DISORDER NEC (Primary Dx) Social History Tobacco Use Types Packs/Day Years Used Date Smoking Tobacco: Never Assessed Sex and Gender Information Value Date Recorded Sex Assigned at Not on file Legal Sex Male 4:57 AM AURIST Gender Identity Not on file Sexual Orientation Not on file documented as of this encounter Plan of Treatment Not on file documented as of this encounter Visit Diagnoses Diagnosis Depressive disorder, not elsewhere classified- Primary documented in this encounter Care Teams Recreational Vehicle Repairer Relationship Specialty Start Date End Date Howard Trinidad MD PCP - General Family Practice 01/25/16 01/26/16 documented as of this encounter
--- OUTSIDE RECORDS SUMMARY | 2024-12-24 20:23 | XMS_ITS | Encounter Summary ---
Author Organization [facility] Address [address] [place] [address] Care Team Providers Care Millstone Cleaner Name Role Phone Unavailable Primary Care Provider Unavailabl e Reason for Visit * Reason Onset Date Comments Erroneous encounter-disregard 10/20/2019 Encounter Details Date Type Department Care Team (Late st Contact Info) Description 10/20/2019 Telephone [facility] [address] [facility] [address] [place] [address] Radha Palafox, METAL PRECISION MACHINE ASSEMBLER-CONE TRUCKER [address] OF [facility] [place] [phone] Erroneous encounter-disregard Social History Tobacco Use Types Packs/Day Years Used Date Smoking Tobacco: Former Smokeless Tobacco: Never Alcohol Use Standard Drinks/Week Comments No 0 (1 standard drink = 0.6 oz pur e alcohol) Sex and Gender Information Value Date Recorded Sex Assigned at Not on file Legal Sex Male 6:27 AM RETAIL SALES ASSOCIATE SEASONAL Gender Identity Not on file Sexual Orientation Not on file documented as of this encounter Miscellaneous Notes * Telephone Encounter - Lynne Mendes - 10/20/2019 10:46 AM CST err [place] SALES ASSOCIATE SEASONAL documented in this encounter Plan of Treatment Not on file documented as of this encounter Visit Diagnoses Not on filedocumented in this encounter
--- OUTSIDE RECORDS SUMMARY | 2024-12-24 20:23 | XMS_ITS | Encounter Summary ---
Author Organization [facility] Address [address] [facility] [place] [address] Care Team Providers Care Project Management Professional Name Role Phone Unavailable Primary Care Provider Unavailabl e Reason for Visit * Reason Onset Date Comments Blood Pressure 12/01/2019 Encounter Details Date Type Department Care Team (Late st Contact Info) Description 12/01/2019 Nurse Triage [facility] [address] [facility] [address] [place] [address] Radha Palafox, SUPERVISOR QUILTING-MANAGER LAUNDRY [address] OF [facility] [place] [phone] Blood Pressure Social History Tobacco Use Types Packs/Day Years Used Date Smoking Tobacco: Former Smokeless Tobacco: Never Alcohol Use Standard Drinks/Week Comments No 0 (1 standard drink = 0.6 oz pur e alcohol) Sex and Gender Information Value Date Recorded Sex Assigned at Not on file Legal Sex Male 6:27 AM LANGUAGE THERAPIST Gender Identity Not on file Sexual Orientation Not on file documented as of this encounter Miscellaneous Notes * Telephone Encounter - Mallory Flores RN - 12/01/2019 10:17 AM CDT Reason for Disposition [1] Systolic BP >= 160 OR Diastolic >= 100 AND [2] cardiac or neurologic symptoms (e.g., chest pain, difficulty breathing, unsteady gait, blurred vision) Protocols used: HIGH BLOOD [id number] Patient given ER disposition, patient verbalizes understanding. [...]
--- OUTSIDE RECORDS SUMMARY | 2024-12-24 20:23 | XMS_ITS | Encounter Summary ---
Author Organization [employer] Address [address] [place] [address] Care Team Providers Care Energy Conservation Technician Name Role Phone Howard Trinidad MD [...] on file Legal Sex Male 4:57 AM PLUM PACKER Gender Identity Not on file Sexual [...] in college playing football Medications: Reviewed in [facility] with caller Medication reactions: Reviewed in [facility] with caller <<<<<<<< TRIAGE NOTE >>>>>>>> Triage Note: Head Buyer Tobacco Lesia Martínez added this note on Dec 09 2015 8:58PM: Caller requesting Flexeril be called to [facility]. He indicated he had called PCP office [...] on filedocumented in this encounter Care Teams Energy Conservation Technician Relationship Specialty Start Date End Date Howard Trinidad MD PCP - General Family Practice 01/25/16 01/26/16 documented as of this encounter
--- OUTSIDE RECORDS SUMMARY | 2024-12-24 20:23 | XMS_ITS | Encounter Summary ---
Author Organization [employer] Address [address] [place] [address] Care Team Providers Care Transformer Stock Clerk Name Role Phone Howard Trinidad MD Primary Care Provider Un available Encounter Details Date Type Department Care Team (Late st Contact Info) Description 04/03/2004 Outpatient Historical [facility] Leticia Cotton MD [facility] [place] [address] [place], Authorized P NO ADDRESS ON FILE PANIC DISORDER (Primary Dx) Social History Tobacco Use Types Packs/Day Years Used Date Smoking Tobacco: Never Assessed Sex and Gender Information Value Date Recorded Sex Assigned at Not on file Legal Sex Male 4:57 AM MICROCHIP SPECIALIST Gender Identity Not on file Sexual Orientation Not on file documented as of this encounter Plan of Treatment Not on file documented as of this encounter Visit Diagnoses Diagnosis Panic disorder without agoraphobia- Primary documented in this encounter Care Teams Transformer Stock Clerk Relationship Specialty Start Date End Date Howard Trinidad MD PCP - General Family Practice 01/25/16 01/26/16 documented as of this encounter
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
--- OUTSIDE RECORDS SUMMARY | 2024-12-24 20:23 | XMS_ITS | Encounter Summary ---
Author Organization [facility] Address [address] [facility] [place] [address] Care Team Providers Care Riveter Automobile Brakes Name Role Phone Unavailable Primary Care Provider Unavailabl e Reason for Visit * Reason Onset Date Comments Nausea 10/02/2019 Cramps 10/02/2019 Pain Abdominal 10/02/2019 Encounter Details Date Type Department Care Team (Late st Contact Info) Description 10/02/2019 Telephone [facility] [address] [facility] [address] [place] [address] Radha Palafox, ASIC DESIGN ENGINEER-SIGNAL APPRENTICE [address] OF [facility] [place] [phone] Nausea; Cramps; Pain Abdominal Social History Tobacco Use Types Packs/Day Years Used Date Smoking Tobacco: Former Smokeless Tobacco: Never Alcohol Use Standard Drinks/Week Comments No 0 (1 standard drink = 0.6 oz pur e alcohol) Sex and Gender Information Value Date Recorded Sex Assigned at Not on file Legal Sex Male 6:27 AM MACHINE STEMMER Gender Identity Not on file Sexual Orientation [...] no UTI. Pt requesting [facility] office call [facility], [phone] for ED report for VENTURA Palafox to review. MD recommended pt call ED and request medical records to be faxed to GI and pt raised voice w/ increased agitation at MD stating he had no time and would [...] for c/b to discuss sx further. CB# [phone] Routed to provider for further review INE STEMMER documented in this encounter Plan of Treatment Not on file documented as of this encounter Visit Diagnoses Not on filedocumented in this encounter
--- OUTSIDE RECORDS SUMMARY | 2024-12-24 20:23 | XMS_ITS | Encounter Summary ---
Author Organization [facility] Address [address] [facility] [place] [address] Care Team Providers Care Packaging Technician Name Role Phone Unavailable Primary Care Provider Unavailabl e Reason for Visit * Reason Onset Date Comments Blood Pressure 12/01/2019 Encounter Details Date Type Department Care Team (Late st Contact Info) Description 12/01/2019 Telephone [facility] [address] [facility] [address] [place] [address] Radha Palafox, STERILIZER MACHINE OPERATOR-SILK PRESSER [address] DIV OF [facility] [place] [phone] Blood Pressure Social History Tobacco Use Types Packs/Day Years Used Date Smoking Tobacco: Former Smokeless Tobacco: Never Alcohol Use Standard Drinks/Week Comments No 0 (1 standard drink = 0.6 oz pur e alcohol) Sex and Gender Information Value Date Recorded Sex Assigned at Not on file Legal Sex Male 6:27 AM EDUCATION DEAN Gender Identity Not on file Sexual Orientation Not on file documented as of this encounter Miscellaneous Notes * Telephone Encounter - Venus Powell RN - 12/01/2019 10:51 AM CDT Carlos Mcgee was transferred to [place]. He is demanding to speak to someone [...] He would like additional medication sent to [facility] in [place], [place]. Mallory in the Call Center stated [...]
--- OUTSIDE RECORDS SUMMARY | 2024-12-24 20:23 | XMS_ITS | Encounter Summary ---
Author Organization [facility] Address [address] [facility] [place] [address] Care Team Providers Care Penology Teacher Name Role Phone Unavailable Primary Care Provider Unavailabl e Encounter Details Date Type Department Care Team (Late st Contact Info) Description 09/08/2019 Telephone [facility] [address] [place] [address] [place] [address] Radha Palafox APRN-VAMSI [address] OF [facility] [place] [place] [phone] Social History Tobacco Use Types Packs/Day Years Used Date Smoking Tobacco: Former Smokeless Tobacco: Never Alcohol Use Standard Drinks/Week Comments No 0 (1 standard drink = 0.6 oz pur e alcohol) Sex and Gender Information Value Date Recorded Sex Assigned at Not on file Legal Sex Male 6:27 AM WINDOW AND DOOR INSTALLER Gender Identity Not on file Sexual [...] reluctantly let me connect him to scheduling OW AND DOOR INSTALLER * Telephone Encounter - Radha Palafox APRN-CNP - 09/08/2019 1:59 PM WINDOW AND DOOR INSTALLER Please tell him that he needs to elevate his legs. I can not do anything for him over the phone. MELISA Diaz OW AND DOOR INSTALLER * Telephone Encounter - Mallory Flores RN [...] would like you to call him CB [phone] OW AND DOOR INSTALLER documented in this encounter Plan of Treatment Not on file documented as of this encounter Visit Diagnoses Not on filedocumented in this encounter
--- OUTSIDE RECORDS SUMMARY | 2024-12-24 20:23 | XMS_ITS | Encounter Summary ---
Author Organization [employer] Address [address] [place] [address] Care Team Providers Care Chlorobutadiene Scrubber Operator Name Role Phone Howard Trinidad MD [...] on file Legal Sex Male 4:57 AM HIV COUNSELOR Gender Identity Not on file Sexual Orientation Not on file documented as of this encounter Plan of Treatment Not on file documented as of this encounter Visit Diagnoses Diagnosis Pain in limb- Primary documented in this encounter Care Teams Chlorobutadiene Scrubber Operator Relationship Specialty Start Date End Date Howard Trinidad MD PCP - General Family Practice 01/25/16 01/26/16 documented as of this encounter
--- OUTSIDE RECORDS SUMMARY | 2024-12-24 20:23 | XMS_ITS | Encounter Summary ---
Author Organization [facility] Address [address] [facility] [place] [address] Care Team Providers Care Guide Escort Name Role Phone Unavailable Primary Care Provider Unavailabl e Reason for Visit * Reason Onset Date Comments Medication Issue 10/24/2019 Encounter Details Date Type Department Care Team (Late st Contact Info) Description 10/24/2019 Telephone [facility] [address] [facility] [address] [place] [address] Radha Palafox APRN-CNP [address] OF [facility] [place] [phone] Medication Issue Social History Tobacco Use Types Packs/Day Years Used Date Smoking Tobacco: Former Smokeless Tobacco: Never Alcohol Use Standard Drinks/Week Comments No 0 (1 standard drink = 0.6 oz pur e alcohol) Sex and Gender Information Value Date Recorded Sex Assigned at Not on file Legal Sex Male 6:27 AM PERSONNEL GENERALIST MANAGER Gender Identity Not on file Sexual Orientation Not on file documented as of this encounter Miscellaneous Notes * Telephone Encounter - Radha Palafox APRN-CNP - 10/24/2019 5:44 PM PERSONNEL GENERALIST MANAGER Called patient. Again talking about his urinary [...] happy with anyone he gets. MELISA Diaz ONNEL GENERALIST MANAGER * Telephone Encounter - Mallory Flores RN - 10/24/2019 2:47 PM CST Patient calling again today He is complaining of being lightheaded. Please see below message ONNEL GENERALIST MANAGER * Telephone Encounter - Mallory Flores RN - 10/24/2019 2:27 PM CST Patient calling and he is out xanax and psychiatrist will not refill He wants to speak with you about this [phone] ONNEL GENERALIST MANAGER documented in this encounter Plan of Treatment Not on file documented as of this encounter Visit Diagnoses Not on filedocumented in this encounter
--- OUTSIDE RECORDS SUMMARY | 2024-12-24 20:23 | XMS_ITS | Clinical Summary ---
Author Organization [facility] Address [address] [place] [address] Care Team Providers Care Manager Of Business Name Role Phone None, Provider MD Primary [...] patient's age to complete this topic Insurance [employer] Care Teams Manager Of Business Relationship Specialty Start Date End Date None, Provider, PCP - General 12/31/19
--- OUTSIDE RECORDS SUMMARY | 2024-12-24 20:23 | XMS_ITS | Encounter Summary ---
Author Organization [facility] Address [address] [place] [address] Care Team Providers Care Animal Care Technician Name Role Phone Unavailable Primary Care Provider Unavailabl e Reason for Visit * Reason Onset Date Comments Med Question 10/18/2019 Med Question 10/19/2019 Order 10/20/2019 XRAY Follow-up 10/20/2019 Encounter Details Date Type Department Care Team (Late st Contact Info) Description 10/18/2019 Telephone [facility] [address] [facility] [address] [place] [address] Radha Palafox, FOREST AIDE-INFECTIOUS DISEASES PHYSICIAN [address] [facility] [place] [id number] Med Question; Med Question; Order (XRAY); Follow-up Social History Tobacco Use Types Packs/Day Years Used Date Smoking Tobacco: Former Smokeless Tobacco: Never Alcohol Use Standard Drinks/Week Comments No 0 (1 standard drink = 0.6 oz pur e alcohol) Sex and Gender Information Value Date Recorded Sex Assigned at Not on file Legal Sex Male 6:27 AM ELEVATOR OPERATOR FREIGHT Gender Identity Not on file Sexual Orientation Not on file documented as of this encounter Miscellaneous Notes * Telephone Encounter - Remedios Catalan LPN - 10/20/2019 2:05 PM ELEVATOR OPERATOR FREIGHT Pt came to 207 window. Pt is demanding xrays be done before his appointment. Pt is demanding that the nurse call me about this. I came early to have this done. I thought you people were here to helppatients. I want this done before the appointment because I want the results now. ATOR OPERATOR FREIGHT * Telephone Encounter - Lynne Mendes - 10/20/2019 1:47 PM CST Upon chart review, no new update message from GASFITTER Petrebekachen or xray order in system at this time. Outbound to pt to inform [place] called pt to inform of above update and pt verbalized understanding. Pt reports he is at [facility] nowand is going to go to office to see if can get an order for an Xray and then go to the lab to get labs drawn. No further questions or concerns at this time. # [phone] (home) Routed to provider for further review Routed to [facility] Nurse Communication for further review ATOR OPERATOR FREIGHT * Telephone Encounter - Lynne Mendes - 10/20/2019 12:35 PM CST Upon chart review, [place] checking for update from GASFITTER Petzchen to c/b pt. As of this time, no new update from GASFITTER Monalisachen. Will continue to monitor for update. ATOR OPERATOR FREIGHT * Telephone Encounter - Lynne Mendes - 10/20/2019 10:54 AM CST Outbound to [facility] Venus - unable to reach Upon chart review, Liz Catalan forwarded message to VENTURA Palafox for review. ATOR OPERATOR FREIGHT * Telephone Encounter - Lynne Mendes - 10/20/2019 9:54 AM CST Pt calling in b/c he is coming in to office today for OV w/ VENTURA Palafox @ 3:20pm and requesting an xray for kidney/left sided pain. Pt reports forgot to ask GASFITTER Vivienne yesterday during phone conversation for xray [...] than 20min w/ the doctor . CB# [phone] (home) Routed to provider for further review HIGH PRIORITY ATOR OPERATOR FREIGHT * Telephone Encounter - Radha Palafox APRN-CNP - 10/19/2019 1:18 PM ELEVATOR OPERATOR FREIGHT Phone call--multiple vague complaints of not feeling [...] he will keep appt tomorrow. MELISA Diaz ATOR OPERATOR FREIGHT * Telephone Encounter - Jovan Grewal - [...] with the provider today, call back number [phone] provided Message routed to provider ATOR OPERATOR FREIGHT * Telephone Encounter - Mallory Flores RN [...] like this he had to take xanax. [phone] ATOR OPERATOR FREIGHT documented in this encounter Plan of Treatment Not on file documented as of this encounter Visit Diagnoses Not on filedocumented in this encounter
--- OUTSIDE RECORDS SUMMARY | 2024-12-24 20:23 | XMS_ITS | CONTINUITY OF CARE DOCUMENT ---
Author Name christian gonzales Address Unknown Organization [facility] Address [address] [place] [address] [address] [place] [address] Phone [phone] Care Team Providers Care Naturalist Name Role Phone Emily Garcia MD Unavailable [phone] Emily Garcia MD Unavailable [phone] PROBLEMS Condition Status Date Provider Notes Chest pain active Emily Garcia MD Diabetes, Type 2 active Emily Garcia MD Hyperlipidemia active Emily Garcia MD Hypertension active Emily Garcia MD Sleep apnea active Emily Garcia MD ENCOUNTERS Date Type Provider Location Encounter Diagnosis - In-person encounter Office Visit Emily Garcia MD [place] [facility] Chest painDiabetes, Type 2HyperlipidemiaHyp ertensionSleep apnea [...] High 3 cholesterol, serum 182 mg/dL [employer] [phone]/10/2 3 basophil count, absolute 0.0 x10E3/uL [employer] [...] Estab. 3 platelet count 208 X10E3/UL [employer] [phone]/10/2 3 red blood cell distribution width 17.6 [...] 3.5-5.2 3 sodium, serum 142 mmol/L [employer] [phone]/10/2 3 urea nitrogen/creatinine ratio, serum 10 [employer] [...] Payer name Policy type / Coverage type [place] red democrat [place] [employer] MEDICA[employer] (2) Medicaid [id number] ADVANCE DIRECTIVES Name Date DISCUSSED - NO DECISION MADE TREATMENT PLAN Date Name Performer [id number],S, Cholesterol, Total 182 mg/dL 100-199 Triglycerides [H] 205 mg/dL 0-149 HDL Cholesterol [L] 21 mg/dL >39 ! VLDL Cholesterol Aristides 37 mg/dL 5-40 LDL Chol Calc (NIH) [H] 124 mg/dL 0-99 Recommend dieatary modifications, see if triglycerides imrpoves, may need to start fish oil. Emily Garcia MD [id number],S, Emily aiken MD [id number],C, n eeds to get w/u done a pparanetly had a cath done 3 yrs ago at [facility] a nd needs to get new /u will do nuclear sress test and echo July 16, 2021 nuclear was denied by insurance s o he had stress echo done but was suboptimal Emily Garcia MD [id number],C, n eeds sleep study done no recent w/u done Emily Garcia MD [id number],C, Cholesterol, Total 182 mg/dL 100-199 Triglycerides [H] 205 mg/dL 0-149 HDL Cholesterol [L] 21 mg/dL >39 ! VLDL Cholesterol Aristides 37 mg/dL 5-40 LDL Chol Calc (NIH) [H] 124 mg/dL 0-99 Recommend dieatary modifications, see if triglycerides imrpoves, may need to start fish oil. Emily Garcia MD [id number],S, Emily aiken MD [id number],C, n eeds to get w/u done a pparanetly had a cath done 3 yrs ago at [facility] a nd needs to get new /u will do nuclear sress test and echo Emily Garcia MD [id number],C, h as angioedema not able to get amelia July 07, 2021 A 1C was 7.1,needs PCP and endcorine eval Emily Garcia MD [id number],C,n eeds sleep study done no recent w/u done Emily Garcia MD [id number],C,needs blood w ork Emily Garcia MD [id number],S,o n atenolol B P today: 152/80 Emily Garcia MD [id number],C,h as angioedema not able to get amelia Emily Garcia MD [id number],C,n eeds to get w/u done a pparanetly had a cath done 3 yrs ago at [facility] a nd needs to get new /u [...] a cath done 3 yrs ago at [facility] a nd needs to get new /u [...] Aristides 37 mg/dL 5-40 LDL Chol Calc ([facility]) [H] 124 mg/dL 0-99 Recommend dieatary modifications, see if triglycerides imrpoves, may need to start fish oil. Emily Garcia MD Telehealth Emily Garcia MD Telehealth: n eeds to get w/u done a pparanetly had a cath done 3 yrs ago at [facility] a nd needs to get new /u [...] a cath done 3 yrs ago at [facility] a nd needs to get new /u [...]
--- OUTSIDE RECORDS SUMMARY | 2024-12-24 20:23 | XMS_ITS | Clinical Summary ---
Author Organization [facility] Administrative Offices Address [address] [place] [address] Care Team Providers Care Commission Agent Livestock Name Role Phone Unavailable Primary Care Provider [...] None 6 Active fluticasone (FLONASE) 50 mcg/spray [place], Suspension Administer 2 Sprays in each nostril [...] on file Legal Sex Male 4:57 AM PRINTER'S ASSISTANT Gender Identity Not on file Sexual Orientation Not on file Occupation Industry Job Start Date Job End Date Not on file Not on file Not on file Not on file Not on file Not on file Not on file Not on file Last Filed Vital Signs Vital Sign Reading Time Taken Comments Blood Pressure 152/94 11/18/2019 7:07 AM PRINTER'S ASSISTANT Pulse 66 11/18/2019 7:07 AM PRINTER'S ASSISTANT Temperature 36.7 C (98.1 F) 11/18/2019 5:34 AM PRINTER'S ASSISTANT Respiratory Rate 18 11/18/2019 7:07 AM PRINTER'S ASSISTANT Oxygen Saturation 98% 11/18/2019 7:07 AM PRINTER'S ASSISTANT Inhaled Oxygen Concentration - - Weight 120.2 kg (265 lb) 11/18/2019 5:34 AM PRINTER'S ASSISTANT Height 188 cm (6' 2 ) 11/18/2019 5:34 AM PRINTER'S ASSISTANT Body Mass Index 34.02 11/18/2019 5:34 AM PRINTER'S ASSISTANT Plan of Treatment Health Maintenance Due Date [...] - 6.1 % 07/02/2015 5:25 PM CDT [facility] [employer] [facility] EST. AVG GLUCOSE, A1C 140 mg/dL 07/02/2015 5:25 PM CDT [facility] Blood Venipuncture - Floor Collect / Unknown 07/02/2015 2:10 AM CDT 07/02/2015 2:11 AM CDT Narrative [facility] - 07/02/2015 5:25 PM CDT Based on the ADAG study equation. us Iwona Arteaga APN CHEMISTRY ORDERABLES Final R esult [facility] CLIA# [id number] [address] [place] [address] from Last 3 Months or Most Recently Relevant to Health Maintenance Insurance MEDICAID Advance Directives For more information, please contact: [phone] * Full Code (Latest Code Status on File) Date Activated Date Inactivated Comments 07/02/2015 8:36 AM 07/02/2015 8:02 PM * Full Code Date Activated Date Inactivated Comments 08/28/2014 2:37 PM 08/28/2014 5:13 PM
--- OUTSIDE RECORDS SUMMARY | 2024-12-24 20:23 | XMS_ITS | Clinical Summary ---
Author Organization [facility] [address] [place] [phone] Care Team Providers Care Academic Affairs Manager Name Role Phone Miscellaneous, Not In [...] pain and frequency. -See either PCP or mill dresser to manage diabetes. -I told patient that if he fails this, we may need to look at further testing for penile pain. Patient verbalized understanding. OAB (overactive bladder) 11/09/2020 Assessment & Plan (11/13/2020 6:03 PM C2 TACTICAL ANALYSIS TECHNICIAN): -Symptoms are suggestive of OAB. Prostate size [...] 11/09/2020 Assessment & Plan (11/09/2020 5:21 PM C2 TACTICAL ANALYSIS TECHNICIAN): -Patient has history of diverticulitis, benign tumor [...] appointment. Assessment & Plan (11/09/2020 5:20 PM C2 TACTICAL ANALYSIS TECHNICIAN): -CT showing non-obstructing stones in kidney. Patient [...] 0 Assessment & Plan (11/16/2019 4:14 PM C2 TACTICAL ANALYSIS TECHNICIAN): Old psychiatrist, Dr Easley, in [place]. Rx'ed [...] 11/16/2019 Assessment & Plan (11/16/2019 4:11 PM C2 TACTICAL ANALYSIS TECHNICIAN): Not taking meds as prescribed. Pt asked to leave before A1C could be tested. Severe obesity (BMI 35.0-35.9 with comorbidity) 11/16/2019 Assessment & Plan (11/16/2019 4:14 PM C2 TACTICAL ANALYSIS TECHNICIAN): Body mass index is 35.12 kg/m . Unable to commercial counsel him given that he was escorted out. [...] (03/12/2017): Scheduled appointment with psychiatric, April 01, [facility] in [place]. 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 Wasn't able to see many doctors in the area because he had been fired. Encounters Date Type Department Care Team Description 10/24/2024 Telephone [facility] Gastroenterology at [address] [place] [address] Jd Mayes MD 10/22/2024 6:32 PM C2 TACTICAL ANALYSIS TECHNICIAN - 10/22/2024 8:51 PM [facility] Emergency [facility] Emergency Department [address] [place] [address] Influenza A (Primary Dx); Acute otitis media, unspecified otitis media type Discharge Disposition: Discharge to home or self care 10/13/2024 11:47 AM C2 TACTICAL ANALYSIS TECHNICIAN - 10/13/2024 2:14 PM [facility] Emergency [facility] Emergency Department [address] [place] [address] Diverticulitis (Primary Dx); UTI symptoms Discharge Disposition: Discharge to home or self care 10/02/2024 4:18 AM C2 TACTICAL ANALYSIS TECHNICIAN - 10/02/2024 5:02 AM [facility] Emergency [facility] Emergency Department [address] [place] [address] John Mckeon MD Generalized anxiety disorder (Primary Dx) Discharge Disposition: Discharge to home or self care 10/01/2024 11:06 PM C2 TACTICAL ANALYSIS TECHNICIAN - 10/02/2024 3:37 AM [facility] Emergency [facility] Emergency Department [address] [place] [address] Discharge Disposition: Left without being seen from [...] on file Legal Sex Male 1:40 AM C2 TACTICAL ANALYSIS TECHNICIAN Gender Identity Not on file Sexual Orientation Not on file Obstetrics History Last Filed Vital Signs Vital Sign Reading Time Taken Comments Blood Pressure 143/89 10/22/2024 8:25 PM C2 TACTICAL ANALYSIS TECHNICIAN Pulse 73 10/22/2024 8:25 PM C2 TACTICAL ANALYSIS TECHNICIAN Temperature 37.2 C (99 F) 10/22/2024 4:46 PM C2 TACTICAL ANALYSIS TECHNICIAN Respiratory Rate 16 10/22/2024 8:25 PM C2 TACTICAL ANALYSIS TECHNICIAN Oxygen Saturation 99% 10/22/2024 8:25 PM C2 TACTICAL ANALYSIS TECHNICIAN Inhaled Oxygen Concentration - - Weight 120.1 kg (264 lb 12.4 oz) 10/22/2024 4:46 PM C2 TACTICAL ANALYSIS TECHNICIAN Height 188 cm (6' 2 ) 10/22/2024 4:46 PM C2 TACTICAL ANALYSIS TECHNICIAN Body Mass Index 33.99 10/22/2024 4:46 PM C2 TACTICAL ANALYSIS TECHNICIAN Plan of Treatment Scheduled Procedures Name Priority [...] LATERAL 2 VIEWS ED 10/22/2024 5:05 PM C2 TACTICAL ANALYSIS TECHNICIAN URINALYSIS, MICROSCOPIC ONLY STAT 10/22/2024 5:01 PM C2 TACTICAL ANALYSIS TECHNICIAN URINALYSIS AND REFLEX TO MICROSCOPIC AND CULTURE STAT 10/22/2024 5:01 PM C2 TACTICAL ANALYSIS TECHNICIAN INFLUENZA A/B, RSV, AND COVID-19 PCR STAT 10/22/2024 4:59 PM C2 [address] ABDOMEN PELVIS WO CONTRAST ED 10/13/2024 12:25 PM C2 TACTICAL ANALYSIS TECHNICIAN URINALYSIS, MICROSCOPIC ONLY STAT 10/13/2024 10:13 AM C2 TACTICAL ANALYSIS TECHNICIAN URINALYSIS AND REFLEX TO MICROSCOPIC AND CULTURE STAT 10/13/2024 10:13 AM C2 TACTICAL ANALYSIS TECHNICIAN EGFR STAT 10/13/2024 10:11 AM C2 TACTICAL ANALYSIS TECHNICIAN DIFFERENTIAL AUTO STAT 10/13/2024 10: 11 AM C2 TACTICAL ANALYSIS TECHNICIAN LIPASE STAT 10/13/2024 10:11 AM C2 TACTICAL ANALYSIS TECHNICIAN COMPREHENSIVE METABOLIC PANEL STAT 10/13/2024 10:11 AM C2 TACTICAL ANALYSIS TECHNICIAN CBC WITH AUTO DIFFERENTIAL STAT 10/13/2024 10:11 AM C2 TACTICAL ANALYSIS TECHNICIAN ECG 12-LEAD STAT 10/13/2024 10:05 AM C2 TACTICAL ANALYSIS TECHNICIAN HEMOGLOBIN A1C Routine 01/22/2020 9:58 AM CDT LIPID PANEL Routine 01/22/2020 9:58 AM CDT COLONOSCOPY REPORT 07/01/2017 from Last 3 Months or Most Recently Relevant to Health Maintenance Results * XR Chest PA Lateral 2 Views (10/22/2024 5:05 PM C2 TACTICAL ANALYSIS TECHNICIAN) Anatomical Region Laterality Modality Body, Chest N/A Computed Radiogr aphy 10/22/2024 5:38 PM C2 TACTICAL ANALYSIS TECHNICIAN Narrative 10/22/2024 5:38 PM C2 TACTICAL ANALYSIS TECHNICIAN EXAM DESCRIPTION: XR CHEST PA LATERAL 2 [...] Dave Kat M.D. KT: KT Report ID: [id number] Reading Location: [place] [address] Procedure Note Dave Kat MD - 10/22/2024 [...] Dave Kat M.D. KT: KT Report ID: [id number] Reading Location: [place] [address] us Jhoana Potts SUPERVISOR BINDERY IMG XR PROCEDURES Final Resul t * (ABNORMAL) Urinalysis reflex to microscopic and culture Urine, clean voided (10/22/2024 5:01 PM C2 TACTICAL ANALYSIS TECHNICIAN) Color, ur Yellow Yellow Comment:Testing performed by : [address] [address] Clarity, ur Clear Clear VAL Comment:Testing performed by : [address] [address] Specific gravity, ur 1.009 1.003 - 1.030 VAL Comment:Testing performed by : [address] [address] pH, urine 6.5 VAL Comment: Interpretive Data U rine pH is affected by diet, medications, systemic acid-base disturbances, and renal tubular function. pH may affect urinary stone formation. For example, urine pH below 6.0 may help reduce the tendency for calcium phosphate stones and pH greater than 6.0 may reduce the tendency for uric acid stone formation. Source: [facility] [employer] Current Interpretive Data was last revised on 2017 Testing performed by: [address] [address] Protein, ur ql Trace(A) Negative VAL Comment:Testing performed by : [address] [address] Glucose, ur ql Negative Negative VAL Comment:Testing performed by : [address] [address] Ketones, ur Negative Negative VAL Comment:Testing performed by : [address] [address] Bilirubin, ur Negative Negative VAL Comment:Testing performed by : [address] [address] Blood, ur Negative Negative VAL MULLER Comment:Testing performed by : [address] [address] Urobilinogen, ur <2.0 <2.0 mg/dL VAL MULLER Comment:Testing performed by : [address] [address] Nitrite, ur Negative Negative VAL Comment:Testing performed by : [address] [address] Leukocyte esterase, ur Negative Negative VAL Comment:Testing performed by : [address] [address] UA reflex comment Reflex to microscopic UA will be performed. VAL MULLER Comment:Testing performed by : [address] [address] Urine, clean voided 10/22/2024 5:01 PM C2 TACTICAL ANALYSIS TECHNICIAN 10/22/2024 5:06 PM C2 TACTICAL ANALYSIS TECHNICIAN Jhoana Potts NP LAB MICROBIOLOGY - GENERAL OR DERABLES Final Result Performing Organization Address [facility]/State/ZIP Co de Phone Number VAL [address] [facility] Department [place] [address] * Urinalysis, microscopic only (10/22/2024 5:01 PM C2 TACTICAL ANALYSIS TECHNICIAN) WBC, ur 0-5 0 - 5 /HPF Comment:Testing performed by : [address] [address] RBC, ur 0-2 0 - 2 /HPF VAL Comment:Testing performed by : [address] [address] Culture Reflex Comment Reflex conditions for urine culture (WBC >10) not met. VAL Comment:Testing performed by : [address] [address] Urine, clean voided 10/22/2024 5:01 PM C2 TACTICAL ANALYSIS TECHNICIAN 10/22/2024 5:06 PM C2 TACTICAL ANALYSIS TECHNICIAN us Jhoana Potts NP LAB URINE ORDERABLES Final Re sult Performing Organization Address [facility]/ZIP Co de Phone Number [facility] [address] [facility] Department [place] [address] * (ABNORMAL) Influenza A/B, RSV, and COVID-19 PCR Nasopharyngeal (10/22/2024 4:59 PM C2 TACTICAL ANALYSIS TECHNICIAN) COVID-19 RNA Negative Negative Comment:Testing performed by : [address] [address] Influenza A RNA Positive(A) Negative [facility] Comment:Testing performed by : [address] [address] Influenza B RNA Negative Negative [facility] Comment:Testing performed by : [address] [address] RSV RNA Negative Negative [facility] Comment: Interpretive data: Testing performed by [facility]. This test is performed using the [employer] Xpert Xpress CoV-2/Flu/RSV plus assay. This is a multiplex, real-time reverse transcriptase PCR assay intended for the qualitative detection of nucleic acid from SARS-CoV-2, influenza A, influenza B, and respiratory syncytial virus. This assay has been cleared by the [place] Food and Drug administration. The performance characteristics have been verified by the [facility]. Results must be considered in the clinical context, and a negative result does not rule out infection. Interpretive Data last revised 2023 Testing performed by: [address] [address] Nasopharyngeal 10/22/2024 4: 59 PM C2 TACTICAL ANALYSIS TECHNICIAN 10/22/2024 5:05 PM C2 TACTICAL ANALYSIS TECHNICIAN Narrative [facility] - 10/22/2024 5:52 PM C2 TACTICAL ANALYSIS TECHNICIAN Is the Patient experiencing symptoms consistent with COVID?->Yes us Jhoana Potts NP LAB MICROBIOLOGY - GENERAL OR DERABLES Final Result Performing Organization Address City/[facility]/ZIP Co de Phone Number VAL [address] [facility] Department [place] [address] * CT Abdomen Pelvis WO Contrast (10/13/2024 12:25 PM C2 TACTICAL ANALYSIS TECHNICIAN) Anatomical Region Laterality Modality Body N/A Computed Tomogra phy 10/13/2024 12:5 0 PM C2 TACTICAL ANALYSIS TECHNICIAN Narrative 10/13/2024 1:08 PM C2 TACTICAL ANALYSIS TECHNICIAN EXAM DESCRIPTION: CT ABDOMEN PELVIS WO CONTRAST [...] Dave Benavides M.D. KR: KR Report ID: [id number] Reading Location: [id number] Procedure Note Dave Benavides MD - 10/13/2024 [...] Dave Benavides M.D. KR: INDIO Report ID: [id number] Reading Location: [place] [address] PROCEDURES Final Result * (ABNORMAL) Urinalysis reflex to microscopic and culture Urine (10/13/2024 10:13 AM C2 TACTICAL ANALYSIS TECHNICIAN) Color, ur Yellow Yellow Comment:Testing performed by : [address] [address] Clarity, ur Clear Clear VAL Comment:Testing performed by : [address] [address] Specific gravity, ur 1.032(H) 1.003 - 1.030 VAL Comment:Testing performed by : [address] [address] pH, urine 5.5 VAL Comment: Interpretive Data U rine pH is affected by diet, medications, systemic acid-base disturbances, and renal tubular function. pH may affect urinary stone formation. For example, urine pH below 6.0 may help reduce the tendency for calcium phosphate stones and pH greater than 6.0 may reduce the tendency for uric acid stone formation. Source: [employer] Current Interpretive Data was last revised on 2017 Testing performed by: [address] [place]., [address] Protein, ur ql Trace(A) Negative VAL Comment:Testing performed by : [address], [place]., [address] Glucose, ur ql Negative Negative VAL Comment:Testing performed by : [address], [place]., [address] Ketones, ur 1+(A) Negative VAL Comment:Testing performed by : [address], [place]., [address] Bilirubin, ur Negative Negative VAL Comment:Testing performed by : [address], [place]., [address] Blood, ur Negative Negative VAL Comment:Testing performed by : [address], [place]., [address] Urobilinogen, ur 2.0(A) <2.0 mg/dL VAL Comment:Testing performed by : [address] [address] Nitrite, ur Negative Negative VAL Comment:Testing performed by : [address], [place]., [address] Leukocyte esterase, ur 2+(A) Negative VAL Comment:Testing performed by : [address] [address] UA reflex comment Reflex to microscopic UA will be performed. VAL Comment:Testing performed by : [address] [address] Urine 10/13/2024 10:1 3 AM C2 TACTICAL ANALYSIS TECHNICIAN 10/13/2024 10:24 AM C2 TACTICAL ANALYSIS TECHNICIAN us Miguel Stokes DO LAB MICROBIOLOGY - GENERAL ORDERABLES Final Result VAL MULLER [address] [facility] Department [place] [address] * (ABNORMAL) Urinalysis, microscopic only (10/13/2024 10:13 AM C2 TACTICAL ANALYSIS TECHNICIAN) WBC, ur 0-5 0 - 5 /HPF Comment:Testing performed by : [address] [address] RBC, ur 0-2 0 - 2 /HPF VAL MULLER Comment:Testing performed by : [address] [address] Epithelial cells, squamous, ur 1-5 0 - 5 /HPF VAL MULLER Comment:Testing performed by : [facility], [address] [place] [address]., [address] Mucous, ur Present(A) VAL MULLER Comment:Testing performed by : [address] [address] Hyaline casts, ur 1-5 0 - 10 /LPF VAL Comment:Testing performed by : [address] [address] Culture Reflex Comment Reflex conditions for urine culture (WBC >10) not met. VAL MULLER Comment:Testing performed by : [address] [address] Urine 10/13/2024 10:1 3 AM C2 TACTICAL ANALYSIS TECHNICIAN 10/13/2024 10:24 AM C2 TACTICAL ANALYSIS TECHNICIAN Miguel Stokes DO LAB URINE ORDERABLES Final Result VAL [address] [facility] Department [place] [address] * eGFR (10/13/2024 10:11 AM C2 TACTICAL ANALYSIS TECHNICIAN) eGFR >90 >=60 mL/min/1. 73 m2 Comment: [...] was last reviewed 2021. Testing performed by: [address] [address] Blood 10/13/2024 10:1 1 AM C2 TACTICAL ANALYSIS TECHNICIAN 10/13/2024 10:24 AM C2 TACTICAL ANALYSIS TECHNICIAN Miguel Stokes DO LAB BLOOD ORDERABLES Final Result [place] [address] [facility] Department [place] [address] * Differential, auto (10/13/2024 10:11 AM C2 TACTICAL ANALYSIS TECHNICIAN) Neutrophil abs 3.0 1.5 - 6.5 K/cumm Comment:Testing performed by : [address] [address] Imm gran abs 0.0 0.0 - 0.1 K/cumm VAL Comment:Testing performed by : [address] [address] Lymphocyte abs 1.2 0.8 - 3.3 K/cumm VAL Comment:Testing performed by : [address] [address] Monocyte abs 0.3 0.2 - 0.8 K/cumm VAL Comment:Testing performed by : [address] [address] Eosinophil abs 0.1 0.0 - 0.5 K/cumm VAL Comment:Testing performed by : [address] [address] Basophil abs 0.0 0.0 - 0.1 K/cumm VAL Comment:Testing performed by : [address] [address] Neutrophil pct 64.6 % VAL Comment: Interpretive Data Percent cell count reference ranges are not reported, since discordance with absolute values may lead to misinterpretation of CBC data. Current Interpretive Data was last revised on 2017. Testing performed by: [address] [address] Imm gran pct 0.2 % [facility] Comment: Interpretive Data Percent cell count reference ranges are not reported, since discordance with absolute values may lead to misinterpretation of CBC data. Current Interpretive Data was last revised on 2017. Testing performed by: [address] [address] Lymphocyte pct 25.9 % [facility] Comment: Interpretive Data Percent cell count reference ranges are not reported, since discordance with absolute values may lead to misinterpretation of CBC data. Current Interpretive Data was last revised on 2017. Testing performed by: [address] [address] Monocyte pct 5.9 % [facility] Comment: Interpretive Data Percent cell count reference ranges are not reported, since discordance with absolute values may lead to misinterpretation of CBC data. Current Interpretive Data was last revised on 2017. Testing performed by: [address] [address] Eosinophil pct 2.8 % [facility] Comment: Interpretive Data Percent cell count reference ranges are not reported, since discordance with absolute values may lead to misinterpretation of CBC data. Current Interpretive Data was last revised on 2017. Testing performed by: [address] [address] Basophil pct 0.6 % [facility] Comment: Interpretive Data Percent cell count reference ranges are not reported, since discordance with absolute values may lead to misinterpretation of CBC data. Current Interpretive Data was last revised on 2017. Testing performed by: [address] [address] Blood 10/13/2024 10:1 1 AM C2 TACTICAL ANALYSIS TECHNICIAN 10/13/2024 10:24 AM C2 TACTICAL ANALYSIS TECHNICIAN us Miguel Stokes DO LAB BLOOD ORDERABLES Final Result VAL [address] [facility] Department [place] [address] * (ABNORMAL) CBC with auto differential (10/13/2024 10:11 AM C2 TACTICAL ANALYSIS TECHNICIAN) [facility] Signature WBC 4.7 3.8 - 9.9 K/cumm Comment:Testing performed by : [address] [address] Hgb 11.2(L) 13.0 - 17.5 g/dL VAL Comment:Testing performed by : [address] [address] Hct 38.0(L) 38.9 - 50.3 % VAL Comment:Testing performed by : [address], [address] Plt 226 150 - 400 K/cumm VAL Comment:Testing performed by : [address] [address] MPV 8.9(L) 9.1 - 12.3 fL VAL Comment:Testing performed by : [address], [address] RBC 5.59 4.30 - 5.80 M/cumm VAL Comment:Testing performed by : [address] [address] MCV 68.0(L) 81.3 - 96.4 fL VAL Comment:Testing performed by : [address] [address] MCH 20.0(L) 27.1 - 33.3 pg VAL Comment:Testing performed by : [address], [address] MCHC 29.5(L) 32.3 - 35.7 g/dL VAL Comment:Testing performed by : [address], [address] RDW CV 19.8(H) 11.1 - 14.9 % VAL Comment:Testing performed by : [address], [address] RDW SD 45.5 35.7 - 48.1 fL VAL Comment:Testing performed by : [address] [address] NRBC abs 0.00 0.00 - 0.01 K/cumm VAL MULLER Comment:Testing performed by : [address] [address] Blood Venous blood specimen / Unknown 10/13/2024 10:11 AM C2 TACTICAL ANALYSIS TECHNICIAN 10/13/2024 10:24 AM C2 TACTICAL ANALYSIS TECHNICIAN Miguel Stokes LAB BLOOD ORDERABLES Final Result Performing Organization Address [facility] de Phone Number VAL [address] [place] [address] * Lipase (10/13/2024 10:11 AM C2 TACTICAL ANALYSIS TECHNICIAN) [facility] Lipase 25 10 - 99 Units/L Comment:Testing performed by : [address] [address] Blood Venous blood specimen / Unknown 10/13/2024 10:11 AM C2 TACTICAL ANALYSIS TECHNICIAN 10/13/2024 10:24 AM C2 TACTICAL ANALYSIS TECHNICIAN Miguel Stokes DO LAB BLOOD ORDERABLES Final Result Performing Organization Address [facility] de Phone Number PAULA[address] [place] [address] * Comprehensive metabolic panel (10/13/2024 10:11 AM C2 TACTICAL ANALYSIS TECHNICIAN) [facility] Sodium 143 135 - 145 mmol/L Comment:Testing performed by : [address] [address] Potassium, pl 3.6 3.3 - 4.9 mmol/L VAL Comment:Testing performed by : [address] [address] Chloride 102 97 - 110 mmol/L VAL MULLER Comment:Testing performed by : [address] [address] CO2 27 22 - 32 mmol/L VAL MULLER Comment:Testing performed by : [address] [address] Anion gap 14 2 - 15 mmol/L VAL Comment:Testing performed by : [address] [address] BUN 11 6 - 25 mg/dL VAL Comment:Testing performed by : [address] [address] Creatinine 0.90 0.80 - 1.30 mg/dL VAL Comment:Testing performed by : [address] [address] Glucose 99 70 - 199 mg/dL VAL [...] was last revised 2022. Testing performed by: [address] [address] Calcium 9.6 8.5 - 10.3 mg/dL VAL Comment:Testing performed by : [address] [address] Bilirubin, total 0.8 0.1 - 1.2 mg/dL VAL Comment:Testing performed by : [address] [address] Protein, pl 7.9 6.5 - 8.5 g/dL VAL Comment:Testing performed by : [address] [address] Albumin 4.3 3.5 - 5.0 g/dL VAL Comment:Testing performed by : [address] [address] Alk phos 62 40 - 130 Units/L VAL Comment:Testing performed by : [address] [address] ALT 17 7 - 55 Units/L VAL Comment:Testing performed by : [facility], [address] [place] [address]., [address] AST 20 10 - 50 Units/L VAL Comment:Testing performed by : [facility], [address] [place] [address]., [address] Blood 10/13/2024 10:1 1 AM C2 TACTICAL ANALYSIS TECHNICIAN 10/13/2024 10:24 AM C2 TACTICAL ANALYSIS TECHNICIAN Miguel Stokes DO LAB BLOOD ORDERABLES Final Result Performing Organization Address City/[facility]/ZIP Co de Phone Number VAL [address] [facility] Department [place] [address] * ECG 12 lead (10/13/2024 10:05 AM C2 TACTICAL ANALYSIS TECHNICIAN) Ventricular Rate EKG/Min 60 BPM [facility] Atrial Rate 60 BPM [facility] UT-Interval (MSEC) 154 ms [facility] QRS-Interval (MSEC) 94 ms [facility] QT-Interval (MSEC) 414 ms [facility] QTc 414 ms [facility] P [place] 9 degrees [facility] R [place] 30 degrees [facility] T [place] 16 degrees [facility] Diagnosis Normal sinus rhythm Normal ECG When compared with ECG of 10-NOV-2022 18:29, Nonspecific T wave abnormality, improved in lateral leads Confirmed by MYLA BARKER M.D. ([id number]) on 10/16/2024 8:25:56 PM [facility] 10/13/2024 10:0 5 AM C2 TACTICAL ANALYSIS TECHNICIAN 10/16/2024 8:25 PM C2 TACTICAL ANALYSIS TECHNICIAN Miguel Stokes DO ECG ORDERABLES Final Resul t Performing Organization Address City/[facility] Co de Phone Number [facility] * (ABNORMAL) Hemoglobin A1c (01/22/2020 9:58 AM CDT) Hemoglobin A1c % 6.2(H) 4.0 - 5.6 % [facility] Comment: ADA 2016 GUIDELINES: Initial Diagnostic Criteria HbA1c Result: Interpretation: <5.7% Normal 5.7-6.4% At risk for diabetes mellitus >=6.5% Consistent with diabetes mellitus Diabetes monitoring Target value (ADA Recommended) <7% 01/22/2020 9:58 AM CDT 01/22/2020 10:14 AM CDT Narrative Resulting Agency Comment CLI Charanjit Sheffield MD LAB BLOOD ORDERABLES Final Result Performing Organization Address City/[facility]/ZIP Co de Phone Number [address] [phone] * (ABNORMAL) Lipid panel (01/22/2020 9:58 AM CDT) Triglycerides 173(H) 0 - 149 mg/dL [facility] Comment: National Lipid Association/NCEP Guidelines: Normal < 150 mg/dL Borderline high 150-199 mg/dL High 200-499 mg/dL Very High >=500 mg/dL Cholesterol 152 0 - 199 mg/dL [facility] Comment: National Lipid Association/NCEP Guidelines: Desirable < 200 mg/dL Borderline high: 200-239 mg/dL High Risk: >=240 mg/dL HDL Cholesterol 22 mg/dL [facility] Comment: Reference Ranges: Males: >=40 mg/dL Females: >=50 mg/dL LDL Cholesterol, Calc 95 0 - 129 mg/dL [facility] Comment: National Lipid Association/NCEP Guidelines: Optimal < 100 mg/dL Near Optimal 100-129 mg/dL Borderline high 130-159 mg/dL High >=160 mg/dL Cholesterol/HDL Ratio 6.9 [facility] Comment: Optimal < 3.5:1 High > 5:1 01/22/2020 9:58 AM CDT 01/22/2020 10:14 AM CDT Narrative Resulting Agency Comment CLI Charanjit Sheffield MD LAB BLOOD ORDERABLES Final Result [address] [phone] * COLONOSCOPY REPORT (07/01/2017) Anatomical Region Laterality Modality Other us Provider Scanning GI PROCEDURE ORDERABLES Edited Result - Final from Last 3 Months or Most Recently Relevant to Health Maintenance Insurance Care Teams Academic Affairs Manager Relationship Specialty Start Date End Date Unknown, Notinfile PCP - General 08/01/24 Miscellaneous, Not In File 11/16/19
--- OUTSIDE RECORDS SUMMARY | 2024-12-24 20:23 | XMS_ITS | Encounter Summary ---
Author Organization [employer] Address 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
--- OUTSIDE RECORDS SUMMARY | 2024-12-24 20:23 | XMS_ITS | Encounter Summary ---
Author Organization [employer] Address [address] [place] [address] Care Team Providers Care Packing Tractor Machine Operator Name Role Phone Howard Trinidad MD Primary Care Provider Un available Encounter Details Date Type Department Care Team (Late st Contact Info) Description 07/01/2006 Outpatient Historical [facility] Support Serv. (Adt Cardiology-[facility]) [address] 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
--- OUTSIDE RECORDS SUMMARY | 2024-12-24 20:23 | XMS_ITS | Encounter Summary ---
Author Organization [facility] Address [address] [place] [address] Care Team Providers Care Bus Escort Name Role Phone Howard Trinidad MD Primary Care Provider Un available Encounter Details Date Type Department Care Team (Late st Contact Info) Description 04/27/2009 Outpatient Historical [facility], Authorized P NO ADDRESS ON FILE Balta Sahu MD [address] [place] [address] [place] [address] Edin Marcum MD [facility] [address] Social History Tobacco Use Types Packs/Day Years Used Date Smoking Tobacco: Never Assessed Sex and Gender Information Value Date Recorded Sex Assigned at Not on file 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 FINDINGS: The heart and mediastinum are normal. There is no infiltrate, contusion, pneumothorax or pleural fluid. The visualized bony thorax is normal. IMPRESSION: Normal AP chest. . Dictated by: LEANDER GORDON 04/27/2009 07:51 Electronically signed by: LEANDER GORDON 04/27/2009 08:07 Transcribed: 04/27/2009 07:56 SMM Procedure Note Leander Gordon - 04/27/2009 [address] [address] [address] [place], [place] [address] Admit Date: 04/27/2009 CARLOS KELLY Sex: M Admit Prov: BALTA SAHU Date: 1970 Primary Care Prov: CMRN: [id number] [facility] [address] [place] [address] IMAGING SERVICES Ordering Prov: N/A Interpretation PORTABLE [...] 45 - 70 % [facility] NEUTROPHIL ABSOLUTE 4.00 1.90 - 7.00 K/uL [facility] EOSINOPHILS 2 0 - 7 % [facility] EOSINOPHIL ABSOLUTE 0.16 0.00 - 0.70 K/uL [facility] LYMPHOCYTES 34 16 - 45 % [facility] LYMPHOCYTE ABSOLUTE 2.43 0.70 - 4.50 K/uL [facility] Blood specimen (specimen) 04/27/2009 12:08 AM CDT 04/27/2009 12:13 AM CDT Edin Marcum MD HEMATOLOGY ORDERABLES Edited Performing Organization Address [facility] Co de Phone Number [facility] CLIA# [id number] [address] [place] [address] * CARDIAC ENZYMES (04/27/2009 12:08 AM CDT) [facility] TROPONIN T <0.01 <=0.03 ng/mL [facility] TROPONIN T INTERP Negative [facility] Blood specimen (specimen) 04/27/2009 12:08 AM CDT 04/27/2009 12:13 AM CDT Edin Marcum MD CHEMISTRY ORDERABLES Edited Performing Organization Address [facility] de Phone Number [facility] CLIA# [id number] [address] [place] [address] * (ABNORMAL) COMPREHENSIVE METABOLIC PANEL (04/27/2009 12:08 [...] and non- Americans is available on the [facility] Intranet at: [email or web address] Select: Lab Policies and Procedures Select: Reference Ranges - GFR Blood specimen (specimen) 04/27/2009 12:08 AM CDT 04/27/2009 12:13 AM CDT us Edin Marcum MD CHEMISTRY ORDERABLES Edited [facility] CLIA# [id number] [address] [place] [address] documented in this encounter Visit Diagnoses Not on filedocumented in this encounter Care Teams Bus Escort Relationship Specialty Start Date End Date Howard Trinidad MD PCP - General Family Practice 01/25/16 01/26/16 documented as of this encounter
--- OUTSIDE RECORDS SUMMARY | 2024-12-24 20:23 | XMS_ITS | Encounter Summary ---
Author Organization [employer] Address 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
--- OUTSIDE RECORDS SUMMARY | 2024-12-24 20:23 | XMS_ITS | Encounter Summary ---
Author Organization [facility] Facility Care Team Providers Care Contact Center Consultant Name Role Phone No, Physician Primary Care Provider Cata Clifton NP Primary Care Provider [phone] No, Physician Primary Care Provider [phone] Miscellaneous, Not In File Primary Care Provider Unavailable Jagdeep Sanford DO Primary Care Provider [phone] Miscellaneous, Not In File Unavailable Unava Charanjit Wilburn MD Primary Care Provider [phone] Carlos Gamboa MD Primary Care Provid er Unknown, Notinfile Primary Care Provider Unavail able No, Physician Primary Care Provider [phone] Unknown, Notinfile Primary Care Provider Unavail able No, Physician Primary Care Provider [phone] Unknown, Notinfile Primary Care Provider Unavail able Adin Lino MD Primary Care Provider + Unknown, Notinfile Primary Care Provider Unavail able Encounter Details Date Type Department Care Team (Latest Contact Info) Description 06/23/2018 Orders Only [facility]INCON[facility] ProviderRachael MD [address] [place] [address] Social History Tobacco Use Types Packs/Day Years Used Date Smoking Tobacco: Former Smokeless Tobacco: Never Alcohol Use Standard Drinks/Week Comments No 0 (1 standard drink = 0.6 oz pur e alcohol) Sex and Gender Information Value Date Recorded Sex Assigned at Not on file Legal Sex Male 1:40 AM PIPE LINE WALKER Gender Identity Not on file Sexual Orientation [...] COVID: Suspected 10/11/2023 10/11/2023 10/11/2023 5:30 PM PIPE LINE WALKER COVID: Suspected 10/22/2024 10/22/2024 10/22/2024 5:53 PM PIPE LINE WALKER Influenza, adult 10/22/2024 10/22/2024 10/29/2024 3:05 AM PIPE LINE WALKER documented as of this encounter Care Teams Contact Center Consultant Relationship Specialty Start Date End Date No, Physician PCP - General 09/15/17 03/16/19 Cata Clifton NP PCP - General 03/17/19 11/04/19 No, Physician PCP - General 11/05/19 11/11/19 Miscellaneous, Not In File PCP - General 11/12/19 0 Jagdeep Sanford DO [address] [place] [address] PCP - General Family Medicine 11/16/19 01/20/20 Charanjit Sheffield MD [address] [place] [address] PCP - General 01/21/20 09/29/20 Carlos Gamboa MD [address] [place] [address] PCP - General Family Medicine 09/30/20 05/07/21 Unknown, Notinfile PCP - General 05/08/21 11/26/21 No, Physician PCP - General 11/27/21 01/13/23 Unknown, Notinfile PCP - General 01/14/23 01/17/24 No, Physician PCP - General 01/18/24 04/21/24 Unknown, Notinfile PCP - General 04/22/24 07/30/24 Adin Lino MD [address] [place] [address] PCP - General Internal Medicine 07/31/24 07/31/24 Unknown, Notinfile PCP - General 08/01/24 Miscellaneous, Not In File 11/16/19 documented as of this encounter
--- OUTSIDE RECORDS SUMMARY | 2024-12-24 20:23 | XMS_ITS | Clinical Summary ---
Author Organization [facility] Address [address] [place] [address] Care Team Providers Care Belly Dump Driver Name Role Phone Unavailable Primary Care Provider Unavailabl e Source Comments [facility],non-owned Affiliates and Associated Physician Practices is amultiple site organization consisting of ambulatory clinics and hospital sitesin [place], [place], [place] and [place]. This disclosure is being madepursuant to the Care Everywhere program and may not contain all informatio navailable regarding this patient. Last updated 18.[facility] Allergies Active Allergy Reactions Criticality Noted Date [...] fluticasone propionate (FLONASE) 50 MCG/ACT nasal spray [place] 2 sprays into each nostril once daily [...] Active ipratropium (ATROVENT) 0.06 % nasal spray [place] 2 sprays into each nostril 3 times [...] (10/31/2019): Scheduled appointment with psychiatric, April 01, [facility] in [place]. Microcytic anemia 07/02/2015 SOB (shortness of breath) [...] on file Legal Sex Male 6:27 AM ENVELOPE MACHINE OPERATOR Gender Identity Not on file [...] URINE RANDOM PANEL Routine 10/20/2019 2:41 PM ENVELOPE MACHINE OPERATOR Type 2 diabetes mellitus without complication, without long-term current use of insulin COMPREHENSIVE METABOLIC PANEL Routine 10/20/2019 2:41 PM ENVELOPE MACHINE OPERATOR Type 2 diabetes mellitus without complication, without long-term current use of insulin Obesity with serious comorbidity, unspecified classification, unspecified obesity type HEPATITIS C AB W RFLX VERIFICATION Routine 10/20/2019 2:41 PM ENVELOPE MACHINE OPERATOR Type 2 diabetes mellitus without complication, without long-term current use of insulin Need for hepatitis C screening test HEMOGLOBIN A1C - POINT OF CARE (AMB) [facility] Routine 08/01/2019 Type 2 diabetes mellitus without complication, without long-term current use of insulin from Last 3 Months or Most Recently Relevant to Health Maintenance Results * HEPATITIS C AB W RFLX VERIFICATION (10/20/2019 2:41 PM ENVELOPE MACHINE OPERATOR) Hepatitis C Antibody <0.1 0.0 - 0.9 s/co ratio 10/21/2019 8:18 AM ENVELOPE MACHINE OPERATOR [facility] Blood BLOOD SPECIMEN / Unknown Lab Venipuncture / Unknown 10/20/2019 2:41 PM ENVELOPE MACHINE OPERATOR 10/20/2019 3:01 PM ENVELOPE MACHINE OPERATOR Narrative [facility]) - 10/21/2019 8:18 AM ENVELOPE MACHINE OPERATOR Performed at: 01 - [facility] [address] [place], [place] [id number] Powerhouse Electrician Apprentice: Carlos Woods PhD, Phone: [phone] us Radha Palafox SURG NURSE-FRONT LINE LEADER LAB - CHEMISTRY ORD ERABLES Final Result [facility]) [address] [place] [address] * (ABNORMAL) MICROALB/CREAT RATIO URINE RANDOM PANEL (10/20/2019 2:41 PM ENVELOPE MACHINE OPERATOR) Albumin Random Urine 65.0 Not Established mcg/mL 10/20/2019 4:57 PM [facility] Creatinine Urine 143 Not Established mg/dL 10/20/2019 4:57 PM [facility] Comment: Result obtained by dilution. Urine Albumin/Creati nine Ratio 45(H) <30 mg/g 10/20/2019 4:57 PM [facility] Urine URINE SPECIMEN OBTAINED BY CLEAN CATCH PROCEDURE / Unknown Collection / Unknown 10/20/2019 2:41 PM ENVELOPE MACHINE OPERATOR 10/20/2019 3:01 PM ENVELOPE MACHINE OPERATOR Radha Palafox SURG NURSE-FRONT LINE LEADER LAB - URINE GLAZIER STAINED GLASS RY ORDERABLES Final Result Performing Organization Address City/State/[facility] Co de Phone Number [address] [phone] * (ABNORMAL) COMPREHENSIVE METABOLIC PANEL (10/20/2019 2:41 PM ENVELOPE MACHINE OPERATOR) BUN 11 7 - 26 mg/dL 10/20/2019 3:33 PM [facility] Creatinine 0.9 0.6 - 1.2 mg/dL 10/20/2019 3:33 PM [facility] Sodium 142 136 - 145 mmol/L 10/20/2019 3:33 PM [facility] Potassium 3.3(L) 3.5 - 4.5 mmol/L 10/20/2019 3:33 PM [facility] Chloride 104 98 - 107 mmol/L 10/20/2019 3:33 PM [facility] CO2 25 22 - 29 mmol/L 10/20/2019 3:33 PM [facility] Glucose 96 70 - 115 mg/dL 10/20/2019 3:33 PM [facility] Calcium 9.5 8.4 - 10.2 mg/dL 10/20/2019 3:33 PM [facility] Protein Total 8.2 6.0 - 8.3 g/dL 10/20/2019 3:33 PM [facility] Albumin 4.2 3.4 - 5.0 g/dL 10/20/2019 3:33 PM [facility] Bilirubin Total 1.7(H) 0.2 - 1.2 mg/dL 10/20/2019 3:33 PM [facility] Alkaline Phosphatase 75 40 - 150 Units/L 10/20/2019 3:33 PM [facility] ALT 60(H) 0 - 55 Units/L 10/20/2019 3:33 PM [facility] AST 63(H) 5 - 34 Units/L 10/20/2019 3:33 PM [facility] Anion Gap 16 8 - 18 10/20/2019 3:33 PM [facility] BUN/Creatinine Ratio 12 7 - 23 10/20/2019 3:33 PM [facility] Osmolality Calculated 293 270 - 300 mOsm/kg 10/20/2019 3:33 PM [facility] Albumin/Globulin Ratio 1.1 1.1 - 2.3 10/20/2019 3:33 PM [facility] eGFR >60 >60 mL/min/1.7 3 m2 10/20/2019 3:33 PM [facility] Blood BLOOD SPECIMEN / Unknown Lab Venipuncture / Unknown 10/20/2019 2:41 PM ENVELOPE MACHINE OPERATOR 10/20/2019 3:01 PM ENVELOPE MACHINE OPERATOR Result [facility] Radha Palafox SURG NURSE-FRONT LINE LEADER LAB - CHEMISTRY ORD ERABLES Final Result Performing Organization Address [facility]/State/[facility] Co de Phone Number [facility] [address] [place] [address] * HEMOGLOBIN A1C - POINT OF CARE (AMB) U (08/01/2019) Hemoglobin A1c POCT 7.5 BLOOD SPECIMEN / Unknown 08/01/2019 Radha Palafox SURG NURSE-FRONT LINE LEADER LAB - POINT OF CARE ORDERABLES Final Result from Last 3 Months or Most Recently Relevant to Health Maintenance Insurance [facility] [address] [id number]
--- OUTSIDE RECORDS SUMMARY | 2024-12-24 20:23 | XMS_ITS | Encounter Summary ---
Author Organization [facility] Address [address] [place] [address] Care Team Providers Care Maintenance Helper Utility Engineer Name Role Phone Howard Trinidad MD Primary [...] on file Legal Sex Male 4:57 AM VOIP ENGINEER Gender Identity Not on file Sexual Orientation Not on file documented as of this encounter Plan of Treatment Not on file documented as of this encounter Visit Diagnoses Diagnosis Panic disorder without agoraphobia- Primary documented in this encounter Care Teams Maintenance Helper Utility Engineer Relationship Specialty Start Date End Date Howard Trinidad MD PCP - General Family Practice 01/25/16 01/26/16 documented as of this encounter
--- OUTSIDE RECORDS SUMMARY | 2024-12-24 20:23 | XMS_ITS | Referral Summary ---
Author Organization [facility] [place] [address] Address [address] [place] [phone] Care Team Providers Care Emergency Preparedness Coordinator Name Role Phone Miscellaneous, Not In File Unavailable Unava ilable Unknown, Notinfile Primary Care Provider Unavail able Encounters Date Type Department Care Team Description 10/24/2024 Telephone [facility] Gastroenterology at [address] [place] [address] Jd Mayes MD 10/22/2024 6:32 PM [facility] - 10/22/2024 8:51 PM [facility] Emergency [facility] Emergency Department [address] [place] [id number] Influenza A (Primary Dx); Acute otitis media, unspecified otitis media type Discharge Disposition: Discharge to home or self care 10/13/2024 11:47 AM [facility] - 10/13/2024 2:14 PM [facility] Emergency Department [address] [place] [id number] Diverticulitis (Primary Dx); UTI symptoms Discharge Disposition: Discharge to home or self care 10/02/2024 4:18 AM [facility] [employer] [facility] - 10/02/2024 5:02 AM [facility] Emergency [facility] Emergency Department [address] [place] [address] John Mckeon MD Generalized anxiety disorder (Primary Dx) Discharge Disposition: Discharge to home or self care 10/01/2024 11:06 PM [facility] - 10/02/2024 3:37 AM [facility] Emergency [facility] Emergency Department [address] [address] Discharge Disposition: Left without being seen from [...] 2 liters (half) of 1st jug of nulyteARKeX. Then on the day before your test [...] pain and frequency. -See either PCP or carton inspector to manage diabetes. -I told patient that if he fails this, we may need to look at further testing for penile pain. Patient verbalized understanding. OAB (overactive bladder) 11/09/2020 Assessment & Plan (11/13/2020 6:03 PM GREASE PRESS HELPER): -Symptoms are suggestive of OAB. Prostate size [...] 11/09/2020 Assessment & Plan (11/09/2020 5:21 PM GREASE PRESS HELPER): -Patient has history of diverticulitis, benign tumor [...] appointment. Assessment & Plan (11/09/2020 5:20 PM GREASE PRESS HELPER): -CT showing non-obstructing stones in kidney. Patient [...] 0 Assessment & Plan (11/16/2019 4:14 PM GREASE PRESS HELPER): Old psychiatrist, Dr Easley, in [place]. Rx'ed [...] 11/16/2019 Assessment & Plan (11/16/2019 4:11 PM GREASE PRESS HELPER): Not taking meds as prescribed. Pt asked to leave before A1C could be tested. Severe obesity (BMI 35.0-35.9 with comorbidity) 11/16/2019 Assessment & Plan (11/16/2019 4:14 PM GREASE PRESS HELPER): Body mass index is 35.12 kg/m . Unable to certified credit counselor him given that he was escorted [...] (03/12/2017): Scheduled appointment with psychiatric, April 01, [facility] in [place]. Anxiety 03/12/2017 Obesity (BMI 30-39.9) 03/12/2017 Benzodiazepine [...] 11/09/2020 Assessment & Plan (11/16/2019 3:59 PM GREASE PRESS HELPER): Severe with h/o panic attacks with xanax [...] he wasn't able to see patients at [facility] because he got fired from [...] on file Legal Sex Male 1:40 AM GREASE PRESS HELPER Gender Identity Not on file Sexual Orientation Not on file Last Filed Vital Signs Vital Sign Reading Time Taken Comments Blood Pressure 143/89 10/22/2024 8:25 PM GREASE PRESS HELPER Pulse 73 10/22/2024 8:25 PM GREASE PRESS HELPER Temperature 37.2 C (99 F) 10/22/2024 4:46 PM GREASE PRESS HELPER Respiratory Rate 16 10/22/2024 8:25 PM GREASE PRESS HELPER Oxygen Saturation 99% 10/22/2024 8:25 PM GREASE PRESS HELPER Inhaled Oxygen Concentration - - Weight 120.1 kg (264 lb 12.4 oz) 10/22/2024 4:46 PM GREASE PRESS HELPER Height 188 cm (6' 2 ) 10/22/2024 4:46 PM GREASE PRESS HELPER Body Mass Index 33.99 10/22/2024 4:46 PM GREASE PRESS HELPER Plan of Treatment Scheduled Procedures Name Priority Associated Diagnoses Date/Ti me COLONOSCOPY Open Access Diverticulitis Procedures Procedure Name Priority Date/Time Associated Diagnosis Comments XR CHEST PA LATERAL 2 VIEWS ED 10/22/2024 5:05 PM GREASE PRESS HELPER URINALYSIS, MICROSCOPIC ONLY STAT 10/22/2024 5:01 PM GREASE PRESS HELPER URINALYSIS AND REFLEX TO MICROSCOPIC AND CULTURE STAT 10/22/2024 5:01 PM GREASE PRESS HELPER INFLUENZA A/B, RSV, AND COVID-19 PCR STAT 10/22/2024 4:[address] ABDOMEN PELVIS WO CONTRAST ED 10/13/2024 12:25 PM GREASE PRESS HELPER URINALYSIS, MICROSCOPIC ONLY STAT 10/13/2024 10:13 AM GREASE PRESS HELPER URINALYSIS AND REFLEX TO MICROSCOPIC AND CULTURE STAT 10/13/2024 10:13 AM GREASE PRESS HELPER EGFR STAT 10/13/2024 10:11 AM GREASE PRESS HELPER DIFFERENTIAL AUTO STAT 10/13/2024 10: 11 AM GREASE PRESS HELPER LIPASE STAT 10/13/2024 10:11 AM GREASE PRESS HELPER COMPREHENSIVE METABOLIC PANEL STAT 10/13/2024 10:11 AM GREASE PRESS HELPER CBC WITH AUTO DIFFERENTIAL STAT 10/13/2024 10:11 AM GREASE PRESS HELPER ECG 12-LEAD STAT 10/13/2024 10:05 AM GREASE PRESS HELPER HEMOGLOBIN A1C Routine 01/22/2020 9:58 AM CDT LIPID PANEL Routine 01/22/2020 9:58 AM CDT COLONOSCOPY REPORT 07/01/2017 from Last 3 Months or Most Recently Relevant to Health Maintenance Results * XR Chest PA Lateral 2 Views (10/22/2024 5:05 PM GREASE PRESS HELPER) Anatomical Region Laterality Modality Body, Chest N/A Computed Radiogr aphy 10/22/2024 5:38 PM GREASE PRESS HELPER Narrative 10/22/2024 5:38 PM GREASE PRESS HELPER EXAM DESCRIPTION: XR CHEST PA LATERAL 2 [...] Dave Kat M.D. KT: KT Report ID: [id number] Reading Location: [id number] Procedure Note Dave Kat MD - 10/22/2024 [...] Dave Kat M.D. KT: SARTHAK Report ID: [id number] Reading Location: [place] [address] us Jhoana Potts REGISTRATION REP IMG XR PROCEDURES Final Resul t * (ABNORMAL) Urinalysis reflex to microscopic and culture Urine, clean voided (10/22/2024 5:01 PM GREASE PRESS HELPER) Color, ur Yellow Yellow Comment:Testing performed by : [address] [address] Clarity, ur Clear Clear VAL Comment:Testing performed by : [address] [address] Specific gravity, ur 1.009 1.003 - 1.030 VAL Comment:Testing performed by : [address] [address] pH, urine 6.5 VAL Comment: Interpretive Data U rine pH is affected by diet, medications, systemic acid-base disturbances, and renal tubular function. pH may affect urinary stone formation. For example, urine pH below 6.0 may help reduce the tendency for calcium phosphate stones and pH greater than 6.0 may reduce the tendency for uric acid stone formation. Source: [employer] Current Interpretive Data was last revised on 2017 Testing performed by: [address] [address] Protein, ur ql Trace(A) Negative VAL Comment:Testing performed by : [address], [place]., [address] Glucose, ur ql Negative Negative VAL MULLER Comment:Testing performed by : [address], [place]., [address] Ketones, ur Negative Negative VAL MULLER Comment:Testing performed by : [address], [place]., [address] Bilirubin, ur Negative Negative VAL MULLER Comment:Testing performed by : [address], [place]., [address] Blood, ur Negative Negative VAL Comment:Testing performed by : [address], [place]., [address] Urobilinogen, ur <2.0 <2.0 mg/dL VAL MULLER Comment:Testing performed by : [address], [place]., [address] Nitrite, ur Negative Negative VAL Comment:Testing performed by : [address], [place]., [address] Leukocyte esterase, ur Negative Negative VAL Comment:Testing performed by : [address], [place]., [address] UA reflex comment Reflex to microscopic UA will be performed. VAL MULLER Comment:Testing performed by : [address], [place]., [address] Urine, clean voided 10/22/2024 5:01 PM GRE[employer] PRESS HELPER 10/22/2024 5:06 PM GREASE PRESS HELPER Jhoana Potts NP LAB MICROBIOLOGY - GENERAL OR DERABLES Final Result VAL MULLER [address] [facility] [place] [address] * Urinalysis, microscopic only (10/22/2024 5:01 PM GREASE PRESS HELPER) WBC, ur 0-5 0 - 5 /HPF Comment:Testing performed by : [address], [place]., [address] RBC, ur 0-2 0 - 2 /HPF VAL MULLER Comment:Testing performed by : [address] [address] Culture Reflex Comment Reflex conditions for urine culture (WBC >10) not met. VAL Comment:Testing performed by : [address] [address] Urine, clean voided 10/22/2024 5:01 PM GREASE PRESS HELPER 10/22/2024 5:06 PM GREASE PRESS HELPER Jhoana Potts LAB URINE ORDERABLES Final Re sult VAL [address] [facility] [place] [address] * (ABNORMAL) Influenza A/B, RSV, and COVID-19 PCR Nasopharyngeal (10/22/2024 4:59 PM GREASE PRESS HELPER) COVID-19 RNA Negative Negative Comment:Testing performed by : [address] [address] Influenza A RNA Positive(A) Negative VAL Comment:Testing performed by : [address] [address] Influenza B RNA Negative Negative VAL Comment:Testing performed by : [address] [address] RSV RNA Negative Negative VAL Comment: Interpretive data: Testing performed by [facility]. This test is performed using the [employer] Xpert Xpress CoV-2/Flu/RSV plus assay. This is a multiplex, real-time reverse transcriptase PCR assay intended for the qualitative detection of nucleic acid from SARS-CoV-2, influenza A, influenza B, and respiratory syncytial virus. This assay has been cleared by the [place] Food and Drug administration. The performance characteristics have been verified by the [facility]. Results must be considered in the clinical context, and a negative result does not rule out infection. Interpretive Data last revised 2023 Testing performed by: [address] [address] Nasopharyngeal 10/22/2024 4: 59 PM GREASE PRESS HELPER 10/22/2024 5:05 PM GREASE PRESS HELPER Narrative VAL MULLER - 10/22/2024 5:52 PM GREASE PRESS HELPER Is the Patient experiencing symptoms consistent with COVID?->Yes Jhoana Potts NP LAB MICROBIOLOGY - GENERAL OR DERABLES Final Result VAL MULLER [address] [facility] [place] [address] * CT Abdomen Pelvis WO Contrast (10/13/2024 12:25 PM GREASE PRESS HELPER) Anatomical Region Laterality Modality Body N/A Computed Tomogra phy 10/13/2024 12:5 0 PM GREASE PRESS HELPER Narrative 10/13/2024 1:08 PM GREASE PRESS HELPER EXAM DESCRIPTION: CT ABDOMEN PELVIS WO CONTRAST [...] Dave Benavides M.D. KR: INDIO Report ID: [id number] Reading Location: [id number] Procedure Note Dave Benavides MD - 10/13/2024 [...] Dave Benavides M.D. KR: INDIO Report ID: [id number] Reading Location: [place] [address] PROCEDURES Final Result * (ABNORMAL) Urinalysis reflex to microscopic and culture Urine (10/13/2024 10:13 AM GREASE PRESS HELPER) Color, ur Yellow Yellow Comment:Testing performed by : [address] [address] Clarity, ur Clear Clear VAL MULLER Comment:Testing performed by : [address] [address] Specific gravity, ur 1.032(H) 1.003 - 1.030 VAL MULLER Comment:Testing performed by : [address] [address] pH, urine 5.5 VAL Comment: Interpretive Data U rine pH is affected by diet, medications, systemic acid-base disturbances, and renal tubular function. pH may affect urinary stone formation. For example, urine pH below 6.0 may help reduce the tendency for calcium phosphate stones and pH greater than 6.0 may reduce the tendency for uric acid stone formation. Source: [facility] [place] Current Interpretive Data was last revised on 2017 Testing performed by: [facility], [address] [place] [address], [place]., [address] Protein, ur ql Trace(A) Negative VAL Comment:Testing performed by : [address] [address] Glucose, ur ql Negative Negative VAL Comment:Testing performed by : [address], [place]., [address] Ketones, ur 1+(A) Negative VAL Comment:Testing performed by : [address] [address] Bilirubin, ur Negative Negative VAL Comment:Testing performed by : [address], [place]., [address] Blood, ur Negative Negative VAL Comment:Testing performed by : [address] [address] Urobilinogen, ur 2.0(A) <2.0 mg/dL VAL Comment:Testing performed by : [address] [address] Nitrite, ur Negative Negative VAL Comment:Testing performed by : [address] [address] Leukocyte esterase, ur 2+(A) Negative VAL Comment:Testing performed by : [address] [address] UA reflex comment Reflex to microscopic UA will be performed. VAL Comment:Testing performed by : [address], [place]., [address] Urine 10/13/2024 10:1 3 AM GREASE PRESS HELPER 10/13/2024 10:24 AM GREASE PRESS HELPER Miguel Stokes DO LAB MICROBIOLOGY - GENERAL ORDERABLES Final Result Performing Organization Address [facility] de Phone Number VAL [address] [facility] [place] [address] * (ABNORMAL) Urinalysis, microscopic only (10/13/2024 10:13 AM GREASE PRESS HELPER) WBC, ur 0-5 0 - 5 /HPF Comment:Testing performed by : [facility], [address] [place] [address]., [address] RBC, ur 0-2 0 - 2 /HPF VAL Comment:Testing performed by : [address] [address] Epithelial cells, squamous, ur 1-5 0 - 5 /HPF VAL Comment:Testing performed by : [address] [address] Mucous, ur Present(A) VAL Comment:Testing performed by : [facility], [address] [place] [address]., [address] Hyaline casts, ur 1-5 0 - 10 /LPF VAL Comment:Testing performed by : [address] [address] Culture Reflex Comment Reflex conditions for urine culture (WBC >10) not met. VLA Comment:Testing performed by : [address] [address] Urine 10/13/2024 10:1 3 AM GREASE PRESS HELPER 10/13/2024 10:24 AM GREASE PRESS HELPER Miguel Stokes DO LAB URINE ORDERABLES Final Result Performing Organization Address City/[facility] Co de Phone Number VAL [address] [facility] [place] [employer] [place] [address] * eGFR (10/13/2024 10:11 AM GREASE PRESS HELPER) eGFR >90 >=60 mL/min/1. 73 m2 Comment: [...] was last reviewed 2021. Testing performed by: [address] [address] Blood 10/13/2024 10:1 1 AM GREASE PRESS HELPER 10/13/2024 10:24 AM GREASE PRESS HELPER Miguel Stokes DO LAB BLOOD ORDERABLES Final Result [facility] [address] [facility] [place] [address] * Differential, auto (10/13/2024 10:11 AM GREASE PRESS HELPER) Neutrophil abs 3.0 1.5 - 6.5 K/cumm Comment:Testing performed by : [address] [address] Imm gran abs 0.0 0.0 - 0.1 K/cumm VAL Comment:Testing performed by : [address] [address] Lymphocyte abs 1.2 0.8 - 3.3 K/cumm VAL Comment:Testing performed by : [address] [address] Monocyte abs 0.3 0.2 - 0.8 K/cumm VAL Comment:Testing performed by : [address] [address] Eosinophil abs 0.1 0.0 - 0.5 K/cumm [facility] Comment:Testing performed by : [address] [address] Basophil abs 0.0 0.0 - 0.1 K/cumm [facility] Comment:Testing performed by : [address] [address] Neutrophil pct 64.6 % [facility] Comment: Interpretive Data Percent cell count reference ranges are not reported, since discordance with absolute values may lead to misinterpretation of CBC data. Current Interpretive Data was last revised on 2017. Testing performed by: [address] [address] Imm gran pct 0.2 % [facility] Comment: Interpretive Data Percent cell count reference ranges are not reported, since discordance with absolute values may lead to misinterpretation of CBC data. Current Interpretive Data was last revised on 2017. Testing performed by: [address] [address] Lymphocyte pct 25.9 % [facility] Comment: Interpretive Data Percent cell count reference ranges are not reported, since discordance with absolute values may lead to misinterpretation of CBC data. Current Interpretive Data was last revised on 2017. Testing performed by: [address] [address] Monocyte pct 5.9 % [facility] Comment: Interpretive Data Percent cell count reference ranges are not reported, since discordance with absolute values may lead to misinterpretation of CBC data. Current Interpretive Data was last revised on 2017. Testing performed by: [address] [address] Eosinophil pct 2.8 % [facility] Comment: Interpretive Data Percent cell count reference ranges are not reported, since discordance with absolute values may lead to misinterpretation of CBC data. Current Interpretive Data was last revised on 2017. Testing performed by: [address] [address] Basophil pct 0.6 % [facility] Comment: Interpretive Data Percent cell count reference ranges are not reported, since discordance with absolute values may lead to misinterpretation of CBC data. Current Interpretive Data was last revised on 2017. Testing performed by: [address] [address] Blood 10/13/2024 10:1 1 AM GREASE PRESS HELPER 10/13/2024 10:24 AM GREASE PRESS HELPER Miguel Stokes DO LAB BLOOD ORDERABLES Final Result [facility] [address] [facility] [place] [address] * (ABNORMAL) CBC with auto differential (10/13/2024 10:11 AM GREASE PRESS HELPER) WBC 4.7 3.8 - 9.9 K/cumm Comment:Testing performed by : [address] [address] Hgb 11.2(L) 13.0 - 17.5 g/dL VAL Comment:Testing performed by : [address] [address] Hct 38.0(L) 38.9 - 50.3 % VAL Comment:Testing performed by : [address] [address] Plt 226 150 - 400 K/cumm VAL Comment:Testing performed by : [address] [address] MPV 8.9(L) 9.1 - 12.3 fL VAL Comment:Testing performed by : [address] [address] RBC 5.59 4.30 - 5.80 M/cumm VAL Comment:Testing performed by : [address] [address] MCV 68.0(L) 81.3 - 96.4 fL VAL Comment:Testing performed by : [address] [address] MCH 20.0(L) 27.1 - 33.3 pg VAL MULLER Comment:Testing performed by : [address] [address] MCHC 29.5(L) 32.3 - 35.7 g/dL VAL MULLER Comment:Testing performed by : [address] [address] RDW CV 19.8(H) 11.1 - 14.9 % VLA MULLER Comment:Testing performed by : [address] [address] RDW SD 45.5 35.7 - 48.1 fL VAL Comment:Testing performed by : [address] [address] NRBC abs 0.00 0.00 - 0.01 K/cumm VAL Comment:Testing performed by : [address], [address] Blood Venous blood specimen / Unknown 10/13/2024 10:11 AM GREASE PRESS HELPER 10/13/2024 10:24 AM GREASE PRESS HELPER Miguel Stokes DO LAB BLOOD ORDERABLES Final Result [address] [employer] [place] [place] [address] * Lipase (10/13/2024 10:11 AM GREASE PRESS HELPER) Lipase 25 10 - 99 Units/L Comment:Testing performed by : [address], [address] Blood Venous blood specimen / Unknown 10/13/2024 10:11 AM GREASE PRESS HELPER 10/13/2024 10:24 AM GREASE PRESS HELPER Miguel Stokes DO LAB BLOOD ORDERABLES Final Result [address] [place] [address] * Comprehensive metabolic panel (10/13/2024 10:11 AM GREASE PRESS HELPER) Sodium 143 135 - 145 mmol/L Comment:Testing performed by : [address] [address] Potassium, pl 3.6 3.3 - 4.9 mmol/L [facility] Comment:Testing performed by : [address], [place]., [address] Chloride 102 97 - 110 mmol/L [facility] Comment:Testing performed by : [address], [place]., [address] CO2 27 22 - 32 mmol/L [facility] Comment:Testing performed by : [address], [place]., [address] Anion gap 14 2 - 15 mmol/L [facility] Comment:Testing performed by : [address], [place]., [address] BUN 11 6 - 25 mg/dL [facility] Comment:Testing performed by : [address], [place]., [address] Creatinine 0.90 0.80 - 1.30 mg/dL [facility] Comment:Testing performed by : [address] [address] Glucose 99 70 - 199 mg/dL [facility] Comment: Interpretive Data Fasting glucose [...] was last revised 2022. Testing performed by: [address] [address] Calcium 9.6 8.5 - 10.3 mg/dL [facility] Comment:Testing performed by : [address] [address] Bilirubin, total 0.8 0.1 - 1.2 mg/dL [facility] Comment:Testing performed by : [address] [address] Protein, pl 7.9 6.5 - 8.5 g/dL [facility] Comment:Testing performed by : [facility], [address] [place] [address]., [address] Albumin 4.3 3.5 - 5.0 g/dL VAL Comment:Testing performed by : [address] [address] Alk phos 62 40 - 130 Units/L VAL Comment:Testing performed by : [address] [address] ALT 17 7 - 55 Units/L VAL Comment:Testing performed by : [address] [address] AST 20 10 - 50 Units/L VAL Comment:Testing performed by : [address] [address] Blood 10/13/2024 10:1 1 AM GREASE PRESS HELPER 10/13/2024 10:24 AM GREASE PRESS HELPER Miguel Stokes DO LAB BLOOD ORDERABLES Final Result VAL [address] [facility] [place] [address] * ECG 12 lead (10/13/2024 10:05 AM GREASE PRESS HELPER) Ventricular Rate EKG/Min 60 BPM [facility] Atrial Rate 60 BPM [facility] MD-Interval (MSEC) 154 ms [facility] QRS-Interval (MSEC) 94 ms [facility] QT-Interval (MSEC) 414 ms [facility] QTc 414 ms [facility] P Mathias 9 degrees [facility] R Mathias 30 degrees [facility] T Mathias 16 degrees [facility] Diagnosis Normal sinus rhythm Normal ECG When compared with ECG of 10-NOV-2022 18:29, Nonspecific T wave abnormality, improved in lateral leads Confirmed by MYLA BARKER M.D. ([id number]) on 10/16/2024 8:25:56 PM [facility] 10/13/2024 10:0 5 AM GREASE PRESS HELPER 10/16/2024 8:25 PM GREASE PRESS HELPER us Miguel Stokes DO ECG ORDERABLES Final Resul t [facility] * (ABNORMAL) Hemoglobin A1c (01/22/2020 9:58 AM CDT) Hemoglobin A1c % 6.2(H) 4.0 - 5.6 % [facility] Comment: ADA 2016 GUIDELINES: Initial Diagnostic Criteria HbA1c Result: Interpretation: <5.7% Normal 5.7-6.4% At risk for diabetes mellitus >=6.5% Consistent with diabetes mellitus Diabetes monitoring Target value (ADA Recommended) <7% 01/22/2020 9:58 AM CDT 01/22/2020 10:14 AM CDT Narrative Resulting Agency Comment CLI us Charanjit Sheffield MD LAB BLOOD ORDERABLES Final Result Performing Organization Address City/[facility]/ZIP Co de Phone Number [address] [phone] * (ABNORMAL) Lipid panel (01/22/2020 9:58 AM CDT) Triglycerides 173(H) 0 - 149 mg/dL [facility] Comment: National Lipid Association/NCEP Guidelines: Normal < 150 mg/dL Borderline high 150-199 mg/dL High 200-499 mg/dL Very High >=500 mg/dL Cholesterol 152 0 - 199 mg/dL [facility] Comment: National Lipid Association/NCEP Guidelines: Desirable < 200 mg/dL Borderline high: 200-239 mg/dL High Risk: >=240 mg/dL HDL Cholesterol 22 mg/dL [facility] Comment: Reference Ranges: Males: >=40 mg/dL Females: >=50 mg/dL LDL Cholesterol, Calc 95 0 - 129 mg/dL [facility] Comment: National Lipid Association/NCEP Guidelines: Optimal < 100 mg/dL Near Optimal 100-129 mg/dL Borderline high 130-159 mg/dL High >=160 mg/dL Cholesterol/HDL Ratio 6.9 [facility] Comment: Optimal < 3.5:1 High > 5:1 01/22/2020 9:58 AM CDT 01/22/2020 10:14 AM CDT Narrative Resulting Agency Comment CLI Charanjit Sheffield MD LAB BLOOD ORDERABLES Final Result Performing Organization Address City/State/ZIP Co vt Phone Number [place] [address] [place] [address], [facility] [phone] * COLONOSCOPY REPORT (07/01/2017) Anatomical Region Laterality Modality Other Provider Scanning GI PROCEDURE ORDERABLES Edited Result - Final from Last 3 Months or Most Recently Relevant to Health Maintenance Insurance [facility] Care Teams Emergency Preparedness Coordinator Relationship Specialty Start Date End Date Unknown, Notinfile PCP - General 08/01/24 Miscellaneous, Not In File 11/16/19
[2024-12-24 20:25] LABS: Procalcitonin 0.1 ng/mL
[2024-12-24 20:27] LABS: Platelet Estimate Adequate (Adequate)
[2024-12-24 20:28] LABS: Anisocytosis 1+; Microcytosis 1+ (NORMAL); Ovalocytes 1+; Schistocytes None Seen
[2024-12-24] MEDS: SODIUM CHLORIDE 0.9% IV 1,000 ML 999 ML IV CONT (20:42)
--- NOTE | 2024-12-24 21:15 | ED.GENADULT ---
HPI - General Adult General Chief complaint: Abdominal Pain Stated complaint: abd pain Time Seen by Provider: 12/24/24 19:15 History of Present Illness HPI narrative: Patient is a 52-year-old gentleman who presents emergency department with chief complaint of abdominal pain. Patient states has been some constipation and reports that he has had frequent urination the patient has prior history of colitis and also prior history of possible colovesicular fistula. The patient states that he has been seen by Colorectal surgery at [facility] ultimately ended up firing them and is currently in the process of switching to a new 1. The patient states that he has had urinary frequency reports that he does feels off Related Data Home Medications ?Medication ?Instructions ?Recorded ?Confirmed ?Last Taken ?Type potassium chloride 10 mEq 10 meq PO DAILY 06/09/23 07/26/24 08/18/24 History tablet,extended release omeprazole 40 mg capsule,delayed 40 mg PO DAILY 04/22/24 08/29/24 08/18/24 History release atenolol 50 mg tablet 50 mg PO Q24H 08/29/24 08/29/24 Unknown History Allergies Allergy/AdvReac Type Severity Reaction Status Date / Time Iodinated Contrast Media Allergy Severe Anaphylaxis Verified 12/24/24 19:32 metformin Allergy Severe Stopped Verified 12/24/24 19:32 Breathing Sulfa (Sulfonamide Allergy Severe Anaphylaxis Verified 12/24/24 19:32 Antibiotics) sulfamethoxazole Allergy Severe Anaphylaxis Verified 12/24/24 19:32 famotidine Allergy Intermediate Hives Verified 12/24/24 19:32 losartan Allergy Intermediate SWLLEING Verified 12/24/24 19:32 LIP AND HIVES nebivolol Allergy Intermediate LIP Verified 12/24/24 19:32 SWELLING Quinolones Allergy Intermediate Nervousness Verified 12/24/24 19:32 valsartan Allergy Intermediate HIVES/SOB Verified 12/24/24 19:32 amlodipine Allergy Mild HIVES Verified 12/24/24 19:32 azithromycin Allergy Mild Nervousness Verified 12/24/24 19:32 pantoprazole Allergy Mild Hives Verified 12/24/24 19:32 spironolactone Allergy Mild RASH AND Verified 12/24/24 19:32 ITCHING trimethoprim Allergy Mild RASH Verified 12/24/24 19:32 morphine Allergy Unknown Verified 12/24/24 19:32 cephalexin AdvReac Mild Nervousness Verified 12/24/24 19:32 flavoxate AdvReac Mild Nervousness Verified 12/24/24 19:32 levofloxacin AdvReac Mild Nervousness Verified 12/24/24 19:32 lidocaine AdvReac Mild Nervousness Verified 12/24/24 19:32 lisinopril AdvReac Mild Nervousness Verified 12/24/24 19:32 nitrofurantoin AdvReac Mild Nervousness Verified 12/24/24 19:32 oxycodone AdvReac Mild Nervousness Verified 12/24/24 19:32 paroxetine AdvReac Mild Nervousness Verified 12/24/24 19:32 Review of Systems Review of Systems: A 10 system review of systems was completed on the patient and is negative except for what is stated in the HPI. Nursing and ancillary documentation was reviewed. [facility], LAT[facility] Past Medical History Medical History Prediabetes Allergic rhinitis Chronic sinusitis Chronic post-traumatic stress disorder (PTSD) Anxiety Depression GERD (gastroesophageal reflux disease) Sleep apnea Asthma HTN (hypertension) CAD (coronary artery disease) history GA Concussion Surgical History Surgical History H/O gastric bypass Hx of cholecystectomy History of cardiac cath History of colonoscopy Family History Family History Grandparent Family history of obesity Hypertension Diabetes mellitus Mother Depression Patient's mother is in good health Family history of mental disorder Father Hypertension Patient's father is in good health Family history of alcoholism Cerebrovascular accident Sibling Patient's sister is in good health Patient's brother is in good health Father Cerebrovascular accident Alcoholism Hypertension Heart disease Mother Family history of malignant neoplasm Depression Hypertension Other Family history of cardiovascular disease Social History Social History Smoking status: Former smoker Smoking end date: 09/13/95 Alcohol intake: former Substance use: never Substance use type: opiates Lack of Transportation: No Lack of Food: Never True Current Housing: I Have Housing Concerned About Future Housing: No Difficulty Paying Gas/Electric Bills: No Difficulty Paying for Meds: No Currently Unemployed: No Education: Master's Degree or Higher Difficulty w/ Childcare or Family Care: No Living arrangements: alone Occupation/Education: occupation Gender identity (if verbalized by the patient): Male Sexual Orientation (if Verbalized by the Patient): Straight or Heterosexual Spiritual care concerns: No Exam Narrative: GENERAL: Well-appearing, well-nourished, and in no acute distress. HEAD: Normocephalic, atraumatic. EYES: PERRLA and EOMI. ENT: Nares clear, no rhinorrhea or epistaxis. Mucous membranes moist. NECK: Supple. CHEST: Clear to auscultation. No respiratory distress. HEART: Regular rate and rhythm. No murmur heard. Normal peripheral pulses. ABDOMEN: Soft, tenderness to palpation, nondistended, normal active bowel sounds. EXTREMITIES: Normal range of motion. No edema. SKIN: Warm, dry, no rash. NEURO: No focal deficits. Alert and oriented x3. PSYCH: Normal mood and affect. Course Vital Signs Vital signs: Vital Signs Temperature 36.8 C 12/24/24 19:03 Pulse Rate 87 12/24/24 19:03 Respiratory Rate 16 12/24/24 19:03 Blood Pressure 150/83 H 12/24/24 19:03 Pulse Oximetry 98 12/24/24 19:03 Temperature 36.8 C 12/24/24 19:03 Pulse Rate 62 12/24/24 19:31 Respiratory Rate 17 12/24/24 19:31 Blood Pressure 143/78 H 12/24/24 19:31 Pulse Oximetry 100 12/24/24 19:31 Medical Decision Making MDM Narrative Medical decision making narrative: Differential diagnosis includes bowel obstruction, intra-abdominal infection, colitis, diverticulitis, CT scan showed evidence of colitis Patient was started on Cipro and Flagyl laboratory studies showed a negative troponin EKG showed no evidence of acute ischemia chest x-ray showed no acute findings. Patient's magnesium was 1.5 the patient was again g of magnesium Vital Signs Vital Signs: Vital Signs Temperature 36.8 C 12/24/24 19:03 Pulse Rate 87 12/24/24 19:03 Respiratory Rate 16 12/24/24 19:03 Blood Pressure 150/83 H 12/24/24 19:03 Pulse Oximetry 98 12/24/24 19:03 Temperature 36.8 C 12/24/24 19:03 Pulse Rate 62 12/24/24 19:31 Respiratory Rate 17 12/24/24 19:31 Blood Pressure 143/78 H 12/24/24 19:31 Pulse Oximetry 100 12/24/24 19:31 Lab Data 12/24/24 19:50 12/24/24 19:50 Labs: Lab Results 12/24/24 12/24/24 Range/Units 19:47 19:50 WBC 5.2 (4.5-10.0) K/mm3 RBC 5.54 (4.6-6.20) M/mm3 Hgb 11.0 L (14.0-18.0) g/dL Hct 38.5 L (42.0-52.0) % MCV 69.5 L (80-100) fl MCH 19.9 L (26-34) pg MCHC 28.6 L (32-36) g/dl RDW 19.1 H (11.5-14.5) % Plt Count 186 (150-375) k/mm3 MPV 9.1 (7.4-10.4) fl Immature Gran % (Auto) 0.2 (0-0.5) % Neut % (Auto) 62.5 (45.5-73.1) % Lymph % (Auto) 26.4 (18.3-44.2) % [place] % (Auto) 7.8 (2.6-8.5) % Eos % (Auto) 2.5 (0-4.4) % Baso % (Auto) 0.6 (0.2-1.2) % Lymph # (Auto) 1.36 (0.9-3.2) K/mm3 [place] # (Auto) 0.4 (0.1-0.6) K/mm3 Eos # (Auto) 0.1 (0-0.3) K/mm3 Baso # (Auto) 0.0 (0.0-0.1) K/mm3 Abs Immat Gran (auto) 0.01 (0.00-0.031) K/mm3 Absolute Neuts (auto) 3.2 (1.3-6.7) K/mm3 Absolute Nucleated RBC 0.000 (0.0-0.012) K/mm3 Band Neutrophils % Not Reportable Nucleated RBC % 0.0 (0.0-0.2) % Platelet Estimate Adequate (Adequate) Anisocytosis 1+ Microcytosis 1+ (NORMAL) Ovalocytes 1+ Schistocytes None seen PT 13.9 (11.1-14.7) Seconds INR 1.0 APTT 37.0 H (22.3-36.8) Seconds Sodium 141 (137-145) mmol/L Potassium 3.5 (3.4-5.0) mmol/L Chloride 101 (98-107) mmol/L Carbon Dioxide 29 (22-30) mmol/L Anion Gap 11 (4-12) mmol/L BUN 10 D (9-20) mg/dL Creatinine 0.98 (0.7-1.3) mg/dL Estim Creat Clear Calc 108 ml/min Estimated GFR > 60 (59 - ) Glucose 132 H (65-110) mg/dL Lactic Acid 0.9 (0.7-2.0) mmol/L Calcium 9.0 (8.4-10.2) mg/dL Magnesium 1.5 L (1.6-2.3) mg/dL Total Bilirubin 2.3 H (0.2-1.3) mg/dL AST 42 (17-59) U/L ALT 44 (6-50) U/L Alkaline Phosphatase 60 (38-126) U/L Troponin I < 0.012 (0.000-0.034) ng/mL Total Protein 8.0 (6.3-8.2) g/dL Albumin 4.5 (3.5-5.1) g/dL Lipase 93 (23-300) U/L Procalcitonin 0.1 ng/mL Urine Color Dark yellow (Yellow) Urine Appearance Clear (Clear) Urine pH 6.0 (5.0-9.0) Ur Specific [place] 1.014 (1.001-1.035) Urine Protein Negative (Negative) mg/dL Urine Glucose (UA) Negative (Negative) mg/dL Urine Ketones Trace H (Negative) mg/dL Ur Blood (Man) Negative (Negative) Urine Nitrate Negative (Negative) Urine Bilirubin Negative (Negative) Urine Urobilinogen 1.0 (<2.0) mg/dL Leukocyte Esterase Rfl Negative (Negative) KENNY/UL Discharge Plan Discharge Clinical Impression: Colitis Patient Disposition: Home Condition: Stable Instructions: Antibiotic Form, Abdominal Pain (ED), Colitis (ED) Additional Instructions: Please follow-up with your primary care provider it is recommended that you follow-up with Colorectal surgery as you continue to have episodes colitis Patient Language: Irish Prescriptions: New promethazine 25 mg tablet 25 mg PO TID PRN (Reason: nausea and vomiting) Qty: 20 0RF metronidazole 500 mg tablet 500 mg PO Q8H 10 Days Qty: 30 0RF ciprofloxacin HCl 500 mg tablet 500 mg PO Q12H 10 Days Qty: 20 0RF No Action potassium chloride 10 mEq tablet extended release 10 meq PO DAILY omeprazole 40 mg capsule,delayed release(DR/EC) 40 mg PO DAILY atenolol 50 mg tablet 50 mg PO Q24H Patient Comments: PT STATES HE IS NOW TAKING 100MG PO DAULY omeprazole 40 mg capsule,delayed release(DR/EC) 40 mg PO DAILY 30 Days Qty: 30 0RF atenolol 100 mg tablet 100 mg PO DAILY 30 Days Qty: 30 0RF omeprazole 40 mg capsule,delayed release(DR/EC) 40 mg PO DAILY 30 Days Qty: 30 0RF albuterol sulfate 90 mcg/actuation HFA aerosol inhaler 2 puff inhalation Q4-6H PRN (Reason: shortness of breath or wheezing) 30 Days Qty: 8.5 0RF fluticasone propionate [Flonase Allergy Relief] 50 mcg/actuation spray,suspension 1 spray intranasal BID Qty: 16 0RF Rx Instructions: administer into each nostril (DME) Aerochamber Plus Z Stat Spacer See Rx Instructions .Route Qty: 1 0RF Rx Instructions: As directed omeprazole 40 mg capsule,delayed release(DR/EC) 40 mg PO DAILY Qty: 30 0RF atenolol 100 mg tablet 100 mg PO DAILY Qty: 30 0RF omeprazole 40 mg capsule,delayed release(DR/EC) 40 mg PO DAILY Qty: 30 0RF atenolol 100 mg tablet 100 mg PO DAILY Qty: 30 0RF methylprednisolone [Medrol (Vega)] 4 mg tablets,dose pack See Rx Instructions PO .COMPLEX Qty: 21 0RF Rx Instructions: orally per package directions fluticasone propionate [24 Hour Allergy Relief] 50 mcg/actuation spray,suspension 2 spray intranasal DAILY Qty: 16 0RF Rx Instructions: administer into each nostril omeprazole 20 mg capsule,delayed release(DR/EC) 40 mg PO DAILY 14 Days Qty: 28 0RF cyclobenzaprine 10 mg tablet 10 mg PO BID PRN (Reason: muscle spasm) Qty: 14 0RF ferrous sulfate 325 mg (65 mg iron) tablet 325 mg PO DAILY Qty: 90 1RF escitalopram oxalate [Lexapro] 20 mg tablet 20 mg PO DAILY Qty: 30 5RF Follow-up/Referrals: PHYSICIAN,[facility] [Primary Care Provider] -
== END 2024-12-24 21:49 | disposition home or self-care (01) ==
PROVIDERS: Emergency Provider Emergency Medicine
DX: K52.9 Noninfective gastroenteritis and colitis, unspecified (principal); J45.909 Unspecified asthma, uncomplicated; I25.10 Atherosclerotic heart disease of native coronary artery without angina pectoris; I10 Essential (primary) hypertension; I25.2 Old myocardial infarction; R73.03 Prediabetes; K21.9 Gastro-esophageal reflux disease without esophagitis; G47.30 Sleep apnea, unspecified; F32.A Depression, unspecified; F43.12 Post-traumatic stress disorder, chronic; F41.9 Anxiety disorder, unspecified; Z98.84 Bariatric surgery status; Z87.891 Personal history of nicotine dependence; Z90.49 Acquired absence of other specified parts of digestive tract; Z79.899 Other long term (current) drug therapy; R00.1 Bradycardia, unspecified
CPT/HCPCS: 36415; 71045; 74176; 80053; 81001; 83605; 83690; 83735; 84145; 84484; 85025; 85610; 85730; 93005; 96360; 99284; J7030

== ENCOUNTER 2025-01-15 21:27 | Emergency (ER) | payer OTHER, SELFPAY ==
--- NOTE | ~2025-01-15 | CT_ITS ---
CLINICAL INDICATION: Abdominal pain with history of diverticulitis COMPARISON: 12/24/2024. TECHNIQUE: Multiple contiguous axial images of the abdomen and pelvis were performed without the admi nistration of intravenous contrast The dose-length product (DLP) was 1380.66 mGy-cm. Automated exposure control and iterative reconstruction technique were employed. FINDINGS/OBSERVATIONS: Visualized lower thorax: The bilateral lung bases are clear. The heart is of normal size, without pericardial effusion. Small hiatal hernia is present. Liver: The liver demonstrates homogeneous attenuation and is enlarged measuring 21 cm in longitudinal dimens ion. Gallbladder and biliary system: The gallbladder is surgically absent. Pancreas: Limited evaluation of the pancreas secondary to the lack of intravenous contrast. Spleen: The spleen demonstrates homogeneous attenuation and is enlarged measuring 14 cm in longitudinal dimen anthony. Kidneys: A 4 mm and a 3 mm calculus is identified within the right kidney, unchanged from prior. 5 mm calculus within the interpolar region of the left kidney, also unchanged. The remainder of the bilateral kidneys are otherwise unremarkable, without hydronephrosis or renal ca lculi. Adrenal glands: Unremarkable. Gastrointestinal tract: Redemonstration of patient's self described mass within the sigmoid colon, similar in morphology to p revious examination. Diverticulosis without surrounding inflammatory change. Appendix: The air-filled appendix is of normal caliber (axial series, images 131 through 144) Vasculature: Unremarkable. Lymph nodes: No pathologically enlarged or morphologically suspicious lymph nodes within the retroperitoneum or at the root of the mesentery. Pelvic structures: The bladder is distended, and otherwise unremarkable. The prostate gland is not enlarged. Body wall and musculoskeletal: Small fat-containing umbilical hernia. Age advanced degenerative disease within the lower thoracic and lumbosacral spines. IMPRESSION: Findings consistent with patient's self-reported mass within the sigmoid colon. This morphologic appe arance is unchanged from prior. Diverticulosis without surrounding inflammatory change. Bilateral renal calculi. Reviewed, dictated and finalized at location A. IMPRESSION: Findings consistent with patient's self-reported mass within the sigmoid colon. This morphologic appearance is unchanged from prior. Diverticulosis without surrounding inflammatory change. Bilateral renal calculi.
--- OUTSIDE RECORDS SUMMARY | 2025-01-15 21:30 | XMS_ITS | Encounter Summary ---
Author Organization [facility] Address [address] [place] [address] Care Team Providers Care Boat Driver Name Role Phone Unavailable Primary Care Provider Unavailabl e Reason for Visit * Reason Onset Date Comments Blood Pressure 12/01/2019 Encounter Details Date Type Department Care Team (Late st Contact Info) Description 12/01/2019 Telephone [facility] General Internal Medicine [address] [facility] [address] [place] [address] Radha Palafox, AUTOMATIC CASTING MACHINE OPERATOR-CORONARY CARE UNIT NURSE [address] DIV OF [facility] [place] [id number] Blood Pressure Social History Tobacco Use Types Packs/Day Years Used Date Smoking Tobacco: Former Smokeless Tobacco: Never Alcohol Use Standard Drinks/Week Comments No 0 (1 standard drink = 0.6 oz pur e alcohol) Sex and Gender Information Value Date Recorded Sex Assigned at Not on file Legal Sex 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 He is demanding to speak to someone [...] He would like additional medication sent to [facility] in [place], [place]. Mallory in the Call Center stated [...]
--- OUTSIDE RECORDS SUMMARY | 2025-01-15 21:30 | XMS_ITS | Encounter Summary ---
Author Organization [facility] Facility Care Team Providers Care Sinter Machine Operator Name Role Phone No, Physician Primary Care Provider [phone] Cata Clifton NP Primary Care Provider [phone] No, Physician Primary Care Provider [phone] Miscellaneous, Not In File Primary Care Provider Unavailable Jagdeep Sanford DO Primary Care Provider [phone] Miscellaneous, Not In File Unavailable Unava Charanjit Wilburn MD Primary Care Provider [phone] Carlos Gamboa MD Primary Care Provid er Unknown, Notinfile Primary Care Provider Unavail able No, Physician Primary Care Provider [phone] Unknown, Notinfile Primary Care Provider Unavail able No, Physician Primary Care Provider [phone] Unknown, Notinfile Primary Care Provider Unavail able Adin Lino MD Primary Care Provider + Unknown, Notinfile Primary Care Provider Unavail able Encounter Details Date Type Department Care Team (Latest Contact Info) Description 06/23/2018 Orders Only [facility] ProviderRachael MD [address] [place] [id number] Social History Tobacco Use Types Packs/Day Years Used Date Smoking Tobacco: Former Smokeless Tobacco: Never Alcohol Use Standard Drinks/Week Comments No 0 (1 standard drink = 0.6 oz pur e alcohol) Sex and Gender Information Value Date Recorded Sex Assigned at Not on file Legal Sex Male 1:40 AM DATABASE DESIGN ANALYST Gender Identity Not on file Sexual [...] COVID: Suspected 10/11/2023 10/11/2023 10/11/2023 5:30 PM DATABASE DESIGN ANALYST COVID: Suspected 10/22/2024 10/22/2024 10/22/2024 5:53 PM DATABASE DESIGN ANALYST Influenza, adult 10/22/2024 10/22/2024 10/29/2024 3:05 AM DATABASE DESIGN ANALYST documented as of this encounter Care Teams Sinter Machine Operator Relationship Specialty Start Date End Date No, Physician PCP - General 09/15/17 03/16/19 Cata Clifton NP PCP - General 03/17/19 11/04/19 No, Physician PCP - General 11/05/19 11/11/19 Miscellaneous, Not In File PCP - General 11/12/19 0 Jagdeep Sanford DO [address] [place] [id number] PCP - General Family Medicine 11/16/19 01/20/20 hCaranjit Sheffield MD [address] [place] [id number] PCP - General 01/21/20 09/29/20 Carlos Gamboa MD [address] [place] [address] PCP - General Family Medicine 09/30/20 05/07/21 Unknown, Notinfile PCP - General 05/08/21 11/26/21 No, Physician PCP - General 11/27/21 01/13/23 Unknown, Notinfile PCP - General 01/14/23 01/17/24 No, Physician PCP - General 01/18/24 04/21/24 Unknown, Notinfile PCP - General 04/22/24 07/30/24 Adin Lino MD [address] [place] [id number] PCP - General Internal Medicine 07/31/24 07/31/24 Unknown, Notinfile PCP - General 08/01/24 Miscellaneous, Not In File 11/16/19 documented as of this encounter
--- OUTSIDE RECORDS SUMMARY | 2025-01-15 21:30 | XMS_ITS | Clinical Summary ---
Author Organization [facility] Address [address] [place] [address] Care Team Providers Care Eyelet Cutter Name Role Phone Unavailable Primary Care Provider Unavailabl e Source Comments [facility],non-owned Affiliates and Associated Physician Practices is amultiple site organization consisting of ambulatory clinics and hospital sitesin [place], [place], [place] and [place]. This disclosure is being madepursuant to the Care Everywhere program and may not contain all informatio navailable regarding this patient. Last updated 18.[facility] Allergies Active Allergy Reactions Criticality Noted Date [...] fluticasone propionate (FLONASE) 50 MCG/ACT nasal spray Noble 2 sprays into each nostril once daily [...] Active ipratropium (ATROVENT) 0.06 % nasal spray Noble 2 sprays into each nostril 3 times [...] (10/31/2019): Scheduled appointment with psychiatric, April 01, [facility] in [place]. Microcytic anemia 07/02/2015 SOB (shortness of breath) [...] on file Legal Sex Male 6:27 AM WHITE SHOE EXAMINER Gender Identity Not on file Sexual [...] URINE RANDOM PANEL Routine 10/20/2019 2:41 PM WHITE SHOE EXAMINER Type 2 diabetes mellitus without complication, without long-term current use of insulin COMPREHENSIVE METABOLIC PANEL Routine 10/20/2019 2:41 PM WHITE SHOE EXAMINER Type 2 diabetes mellitus without complication, without long-term current use of insulin Obesity with serious comorbidity, unspecified classification, unspecified obesity type HEPATITIS C AB W RFLX VERIFICATION Routine 10/20/2019 2:41 PM WHITE SHOE EXAMINER Type 2 diabetes mellitus without complication, without long-term current use of insulin Need for hepatitis C screening test HEMOGLOBIN A1C - POINT OF CARE (AMB) [facility] Routine 08/01/2019 Type 2 diabetes mellitus without complication, without long-term current use of insulin from Last 3 Months or Most Recently Relevant to Health Maintenance Results * HEPATITIS C AB W RFLX VERIFICATION (10/20/2019 2:41 PM WHITE SHOE EXAMINER) Hepatitis C Antibody <0.1 0.0 - 0.9 s/co ratio 10/21/2019 8:18 AM WHITE SHOE EXAMINER [facility] ([facility]) Blood BLOOD SPECIMEN / Unknown Lab Venipuncture / Unknown 10/20/2019 2:41 PM WHITE SHOE EXAMINER 10/20/2019 3:01 PM WHITE SHOE EXAMINER Narrative [facility] ([facility]) - 10/21/2019 8:18 AM WHITE SHOE EXAMINER [facility]formed at: [facility] [address], [place] [id number] Communication Equipment Repairer: Carlos Woods PhD, Phone: [phone] us Radha Palafox FORGE UTILITY WORKER-ORDER EDITOR LAB - CHEMISTRY ORD ERABLES Final Result [facility] ([facility]) [address] [place] [address] * (ABNORMAL) MICROALB/CREAT RATIO URINE RANDOM PANEL (10/20/2019 2:41 PM WHITE SHOE EXAMINER) Albumin Random Urine 65.0 Not Established mcg/mL 10/20/2019 4:57 PM [facility] Creatinine Urine 143 Not Established mg/dL 10/20/2019 4:57 PM [facility] Comment: Result obtained by dilution. Urine Albumin/Creati nine Ratio 45(H) <30 mg/g 10/20/2019 4:57 PM [facility] Urine URINE SPECIMEN OBTAINED BY CLEAN CATCH PROCEDURE / Unknown Collection / Unknown 10/20/2019 2:41 PM WHITE SHOE EXAMINER 10/20/2019 3:01 PM WHITE SHOE EXAMINER Radha Palafox FORGE UTILITY WORKER-ORDER EDITOR LAB - URINE SHUTTLE HAND RY ORDERABLES Final Result Performing Organization Address City/State/[facility] Co de Phone Number [address] [phone] * (ABNORMAL) COMPREHENSIVE METABOLIC PANEL (10/20/2019 2:41 PM WHITE SHOE EXAMINER) BUN 11 7 - 26 mg/dL 10/20/2019 3:33 PM [facility] Creatinine 0.9 0.6 - 1.2 mg/dL 10/20/2019 3:33 PM [facility] Sodium 142 136 - 145 mmol/L 10/20/2019 3:33 PM [facility] Potassium 3.3(L) 3.5 - 4.5 mmol/L 10/20/2019 3:33 PM [facility] Chloride 104 98 - 107 mmol/L 10/20/2019 3:33 PM [facility] CO2 25 22 - 29 mmol/L 10/20/2019 3:33 PM [facility] Glucose 96 70 - 115 mg/dL 10/20/2019 3:33 PM [facility] Calcium 9.5 8.4 - 10.2 mg/dL 10/20/2019 3:33 PM [facility] Protein Total 8.2 6.0 - 8.3 g/dL 10/20/2019 3:33 PM [facility] Albumin 4.2 3.4 - 5.0 g/dL 10/20/2019 3:33 PM [facility] Bilirubin Total 1.7(H) 0.2 - 1.2 mg/dL 10/20/2019 3:33 PM [facility] Alkaline Phosphatase 75 40 - 150 Units/L 10/20/2019 3:33 PM [facility] ALT 60(H) 0 - 55 Units/L 10/20/2019 3:33 PM [facility] AST 63(H) 5 - 34 Units/L 10/20/2019 3:33 PM [facility] Anion Gap 16 8 - 18 10/20/2019 3:33 PM [facility] BUN/Creatinine Ratio 12 7 - 23 10/20/2019 3:33 PM [facility] Osmolality Calculated 293 270 - 300 mOsm/kg 10/20/2019 3:33 PM [facility] Albumin/Globulin Ratio 1.1 1.1 - 2.3 10/20/2019 3:33 PM [facility] eGFR >60 >60 mL/min/1.7 3 m2 10/20/2019 3:33 PM [facility] Blood BLOOD SPECIMEN / Unknown Lab Venipuncture / Unknown 10/20/2019 2:41 PM WHITE SHOE EXAMINER 10/20/2019 3:01 PM WHITE SHOE EXAMINER Result [facility] Radha Palafox FORGE UTILITY WORKER-ORDER EDITOR LAB - CHEMISTRY ORD ERABLES Final Result Performing Organization Address [facility]/State/[facility] Co de Phone Number [facility] [address] [place] [address] * HEMOGLOBIN A1C - POINT OF CARE (AMB) U (08/01/2019) Hemoglobin A1c POCT 7.5 BLOOD SPECIMEN / Unknown 08/01/2019 Radha Palafox FORGE UTILITY WORKER-ORDER EDITOR LAB - POINT OF CARE ORDERABLES Final Result from Last 3 Months or Most Recently Relevant to Health Maintenance Insurance [facility] [address] [id number]
--- OUTSIDE RECORDS SUMMARY | 2025-01-15 21:30 | XMS_ITS | Referral Summary ---
Author Organization [facility] [address] [place] [address] Care Team Providers Care Sales Product Specialist Name Role Phone Miscellaneous, Not In File Unavailable Unava ilable Unknown, Notinfile Primary Care Provider Unavail able Encounters Date Type Department Care Team Description 10/24/2024 Telephone [facility] Gastroenterology at [address] [place] [address] Jd Mayes MD 10/22/2024 6:32 PM OCEAN EXPORT ACCOUNT MANAGER - 10/22/2024 8:51 PM [facility] Emergency [facility] Emergency Department [address] [place] [address] Influenza A (Primary Dx); Acute otitis media, unspecified otitis media type Discharge Disposition: Discharge to home or self care from Last 3 Months Allergies Active Allergy [...] pain and frequency. -See either PCP or policy and planning manager to manage diabetes. -I told patient that if he fails this, we may need to look at further testing for penile pain. Patient verbalized understanding. OAB (overactive bladder) 11/09/2020 Assessment & Plan (11/13/2020 6:03 PM OCEAN EXPORT ACCOUNT MANAGER): -Symptoms are suggestive of OAB. Prostate size [...] 11/09/2020 Assessment & Plan (11/09/2020 5:21 PM OCEAN EXPORT ACCOUNT MANAGER): -Patient has history of diverticulitis, benign tumor [...] appointment. Assessment & Plan (11/09/2020 5:20 PM OCEAN EXPORT ACCOUNT MANAGER): -CT showing non-obstructing stones in kidney. Patient [...] 0 Assessment & Plan (11/16/2019 4:14 PM OCEAN EXPORT ACCOUNT MANAGER): Old psychiatrist, Dr Easley, in [place]. Rx'ed [...] 11/16/2019 Assessment & Plan (11/16/2019 4:11 PM OCEAN EXPORT ACCOUNT MANAGER): Not taking meds as prescribed. Pt asked to leave before A1C could be tested. Severe obesity (BMI 35.0-35.9 with comorbidity) 11/16/2019 Assessment & Plan (11/16/2019 4:14 PM OCEAN EXPORT ACCOUNT MANAGER): Body mass index is 35.12 kg/m . Unable to agency legal counsel him given that he was escorted [...] (03/12/2017): Scheduled appointment with psychiatric, April 01, [facility] in [place]. Anxiety 03/12/2017 Obesity (BMI 30-39.9) 03/12/2017 Benzodiazepine [...] 11/09/2020 Assessment & Plan (11/16/2019 3:59 PM OCEAN EXPORT ACCOUNT MANAGER): Severe with h/o panic attacks with xanax [...] research on prior controlled substance use on [facility]. While I was out of the [...] he wasn't able to see patients at [facility] because he got fired from [...] on file Legal Sex Male 1:40 AM OCEAN EXPORT ACCOUNT MANAGER Gender Identity Not on file Sexual Orientation Not on file Last Filed Vital Signs Vital Sign Reading Time Taken Comments Blood Pressure 143/89 10/22/2024 8:25 PM OCEAN EXPORT ACCOUNT MANAGER Pulse 73 10/22/2024 8:25 PM OCEAN EXPORT ACCOUNT MANAGER Temperature 37.2 C (99 F) 10/22/2024 4:46 PM OCEAN EXPORT ACCOUNT MANAGER Respiratory Rate 16 10/22/2024 8:25 PM OCEAN EXPORT ACCOUNT MANAGER Oxygen Saturation 99% 10/22/2024 8:25 PM OCEAN EXPORT ACCOUNT MANAGER Inhaled Oxygen Concentration - - Weight 120.1 kg (264 lb 12.4 oz) 10/22/2024 4:46 PM OCEAN EXPORT ACCOUNT MANAGER Height 188 cm (6' 2 ) 10/22/2024 4:46 PM OCEAN EXPORT ACCOUNT MANAGER Body Mass Index 33.99 10/22/2024 4:46 PM OCEAN EXPORT ACCOUNT MANAGER Plan of Treatment Scheduled Procedures Name Priority Associated Diagnoses Date/Ti me COLONOSCOPY Open Access Diverticulitis Procedures Procedure Name Priority Date/Time Associated Diagnosis Comments XR CHEST PA LATERAL 2 VIEWS ED 10/22/2024 5:05 PM OCEAN EXPORT ACCOUNT MANAGER URINALYSIS, MICROSCOPIC ONLY STAT 10/22/2024 5:01 PM OCEAN EXPORT ACCOUNT MANAGER URINALYSIS AND REFLEX TO MICROSCOPIC AND CULTURE STAT 10/22/2024 5:01 PM OCEAN EXPORT ACCOUNT MANAGER INFLUENZA A/B, RSV, AND COVID-19 PCR STAT 10/22/2024 4:59 PM OCEAN EXPORT ACCOUNT MANAGER EGFR STAT 10/13/2024 10:11 AM OCEAN EXPORT ACCOUNT MANAGER HEMOGLOBIN A1C Routine 01/22/2020 9:58 AM CDT LIPID PANEL Routine 01/22/2020 9:58 AM CDT COLONOSCOPY REPORT 07/01/2017 from Last 3 Months or Most Recently Relevant to Health Maintenance Results * XR Chest PA Lateral 2 Views (10/22/2024 5:05 PM OCEAN EXPORT ACCOUNT MANAGER) Anatomical Region Laterality Modality Body, Chest N/A Computed Radiogr aphy 10/22/2024 5:38 PM OCEAN EXPORT ACCOUNT MANAGER Narrative 10/22/2024 5:38 PM OCEAN EXPORT ACCOUNT MANAGER EXAM DESCRIPTION: XR CHEST PA LATERAL 2 [...] Dave Kat M.D. KT: SARTHAK Report ID: [id number] Reading Location: [id number] Procedure Note Dave Kat MD - 10/22/2024 [...] Dave Kat M.D. KT: SARTHAK Report ID: [id number] Reading Location: [id number] us Jhoana Potts NP IMG XR PROCEDURES Final Resul t * (ABNORMAL) Urinalysis reflex to microscopic and culture Urine, clean voided (10/22/2024 5:01 PM OCEAN EXPORT ACCOUNT MANAGER) Color, ur Yellow Yellow Comment:Testing performed by : [address] [address] Clarity, ur Clear Clear VAL Comment:Testing performed by : [address] [address] Specific gravity, ur 1.009 1.003 - 1.030 VAL Comment:Testing performed by : [address] [address] pH, urine 6.5 VAL Comment: Interpretive Data U rine pH is affected by diet, medications, systemic acid-base disturbances, and renal tubular function. pH may affect urinary stone formation. For example, urine pH below 6.0 may help reduce the tendency for calcium phosphate stones and pH greater than 6.0 may reduce the tendency for uric acid stone formation. Source: [facility] Current Interpretive Data was last revised on 2017 Testing performed by: [facility], [address] [place] [address], [place]., [address] Protein, ur ql Trace(A) Negative VAL MULLER Comment:Testing performed by : [address], [place]., [address] Glucose, ur ql Negative Negative VAL Comment:Testing performed by : [address], [place]., [address] Ketones, ur Negative Negative VAL Comment:Testing performed by : [address], [place]., [address] Bilirubin, ur Negative Negative VAL Comment:Testing performed by : [address], [place]., [address] Blood, ur Negative Negative VAL Comment:Testing performed by : [address], [place]., [address] Urobilinogen, ur <2.0 <2.0 mg/dL VAL Comment:Testing performed by : [address], [place]., [address] Nitrite, ur Negative Negative VAL Comment:Testing performed by : [address] [address] Leukocyte esterase, ur Negative Negative VAL Comment:Testing performed by : [address], [place]., [address] UA reflex comment Reflex to microscopic UA will be performed. VAL Comment:Testing performed by : [address] [address] Urine, clean voided 10/22/2024 5:01 PM OCEAN EXPORT ACCOUNT MANAGER 10/22/2024 5:06 PM OCEAN EXPORT ACCOUNT MANAGER Jhoana Potts NP LAB MICROBIOLOGY - GENERAL OR DERABLES Final Result VAL MULLER [address] [facility] Department [place] [address] * Urinalysis, microscopic only (10/22/2024 5:01 PM OCEAN EXPORT ACCOUNT MANAGER) WBC, ur 0-5 0 - 5 /HPF Comment:Testing performed by : [address] [address] RBC, ur 0-2 0 - 2 /HPF VAL Comment:Testing performed by : [address] [address] Culture Reflex Comment Reflex conditions for urine culture (WBC >10) not met. VAL Comment:Testing performed by : [address] [address] Urine, clean voided 10/22/2024 5:01 PM OCEAN EXPORT ACCOUNT MANAGER 10/22/2024 5:06 PM OCEAN EXPORT ACCOUNT MANAGER Jhoana Potts APPLICATION TECHNICIAN LAB URINE ORDERABLES Final Re sult VAL [address] [facility] Department of Laboratories [place], [place] [id number] * (ABNORMAL) Influenza A/B, RSV, and COVID-19 PCR Nasopharyngeal (10/22/2024 4:59 PM OCEAN EXPORT ACCOUNT MANAGER) COVID-19 RNA Negative Negative Comment:Testing performed by : [address] [address] Influenza A RNA Positive(A) Negative VAL Comment:Testing performed by : [address] [address] Influenza B RNA Negative Negative VAL Comment:Testing performed by : [address] [address] RSV RNA Negative Negative VAL Comment: Interpretive data: Testing performed by [facility]. This test is performed using the [employer] Xpert Xpress CoV-2/Flu/RSV plus assay. This is a multiplex, real-time reverse transcriptase PCR assay intended for the qualitative detection of nucleic acid from SARS-CoV-2, influenza A, influenza B, and respiratory syncytial virus. This assay has been cleared by the [place] Food and Drug administration. The performance characteristics have been verified by the [facility]. Results must be considered in the clinical context, and a negative result does not rule out infection. Interpretive Data last revised 2023 Testing performed by: [facility], [address] [place] [address]., [address] Nasopharyngeal 10/22/2024 4: 59 PM OCEAN EXPORT ACCOUNT MANAGER 10/22/2024 5:05 PM OCEAN EXPORT ACCOUNT MANAGER Narrative VAL - 10/22/2024 5:52 PM OCEAN EXPORT ACCOUNT MANAGER Is the Patient experiencing symptoms consistent with COVID?->Yes Jhoana Potts NP LAB MICROBIOLOGY - GENERAL OR DERABLES Final Result Performing Organization Address City/[facility]/ZIP Co de Phone Number VAL [address] [place] [address] * eGFR (10/13/2024 10:11 AM OCEAN EXPORT ACCOUNT MANAGER) eGFR >90 >=60 mL/min/1. 73 m2 Comment: [...] was last reviewed 2021. Testing performed by: [facility], [address] [place] [address]., [address] Blood 10/13/2024 10:1 1 AM OCEAN EXPORT ACCOUNT MANAGER 10/13/2024 10:24 AM OCEAN EXPORT ACCOUNT MANAGER Miguel Stokes DO LAB BLOOD ORDERABLES Final Result Performing Organization Address City/[facility]/ZIP Co de Phone Number VAL [address] Department [place] [address] * (ABNORMAL) Hemoglobin A1c (01/22/2020 9:58 AM CDT) Hemoglobin A1c % 6.2(H) 4.0 - 5.6 % [facility] Comment: ADA 2016 GUIDELINES: Initial Diagnostic Criteria HbA1c Result: Interpretation: <5.7% Normal 5.7-6.4% At risk for diabetes mellitus >=6.5% Consistent with diabetes mellitus Diabetes monitoring Target value (ADA Recommended) <7% 01/22/2020 9:58 AM CDT 01/22/2020 10:14 AM CDT Narrative Resulting Agency Comment CLI us Charanjit Sheffield MD LAB BLOOD ORDERABLES Final Result [id number] [place] [address], [facility] [phone] * (ABNORMAL) Lipid panel (01/22/2020 9:58 AM CDT) Triglycerides 173(H) 0 - 149 mg/dL [facility] Comment: National Lipid Association/NCEP Guidelines: Normal < 150 mg/dL Borderline high 150-199 mg/dL High 200-499 mg/dL Very High >=500 mg/dL Cholesterol 152 0 - 199 mg/dL [facility] Comment: National Lipid Association/NCEP Guidelines: Desirable < 200 mg/dL Borderline high: 200-239 mg/dL High Risk: >=240 mg/dL HDL Cholesterol 22 mg/dL [facility] Comment: Reference Ranges: Males: >=40 mg/dL Females: >=50 mg/dL LDL Cholesterol, Calc 95 0 - 129 mg/dL [facility] Comment: National Lipid Association/NCEP Guidelines: Optimal < 100 mg/dL Near Optimal 100-129 mg/dL Borderline high 130-159 mg/dL High >=160 mg/dL Cholesterol/HDL Ratio 6.9 [facility] Comment: Optimal < 3.5:1 High > 5:1 01/22/2020 9:58 AM CDT 01/22/2020 10:14 AM CDT Narrative Resulting Agency Comment CLI Charanjit Sheffield MD LAB BLOOD [place] [address], [facility] [phone] * COLONOSCOPY REPORT (07/01/2017) Anatomical Region Laterality Modality Other Provider Scanning GI PROCEDURE ORDERABLES Edited Result - Final from Last 3 Months or Most Recently Relevant to Health Maintenance Insurance [facility] Care Teams Sales Product Specialist Relationship Specialty Start Date End Date Unknown, Notinfile PCP - General 08/01/24 Miscellaneous, Not In File 11/16/19
--- OUTSIDE RECORDS SUMMARY | 2025-01-15 21:30 | XMS_ITS | Encounter Summary ---
Author Organization [facility] Address [address] [place] [address] Care Team Providers Care Mothercraft Nurse Name Role Phone Unavailable Primary Care Provider Unavailabl e Reason for Visit * Reason Onset Date Comments Blood Pressure 12/01/2019 Encounter Details Date Type Department Care Team (Late st Contact Info) Description 12/01/2019 Nurse Triage [facility] [address] [facility] [address] [place] [address] Radha Palafox, GAS APPLIANCE MECHANIC-COPPERSMITH HELPER [address] OF [facility] [place] [id number] Blood Pressure Social History Tobacco Use Types Packs/Day Years Used Date Smoking Tobacco: Former Smokeless Tobacco: Never Alcohol Use Standard Drinks/Week Comments No 0 (1 standard drink = 0.6 oz pur e alcohol) Sex and Gender Information Value Date Recorded Sex Assigned at Not on file Legal Sex Male 6:27 AM ALL AROUND PATTERNMAKER Gender Identity Not on file Sexual Orientation Not on file documented as of this encounter Miscellaneous Notes * Telephone Encounter - Mallory Flores RN - 12/01/2019 10:17 AM CDT Reason for Disposition [1] Systolic BP >= 160 OR Diastolic >= 100 AND [2] cardiac or neurologic symptoms (e.g., chest pain, difficulty breathing, unsteady gait, blurred vision) Protocols used: HIGH BLOOD [id number] Patient given ER disposition, patient verbalizes understanding. [...]
--- OUTSIDE RECORDS SUMMARY | 2025-01-15 21:30 | XMS_ITS | Clinical Summary ---
Author Organization [facility] [address] Address [address] [place] [phone] Care Team Providers Care Taxonomist Name Role Phone Miscellaneous, Not In File [...] pain and frequency. -See either PCP or correctional substance abuse counselor to manage diabetes. -I told patient that if he fails this, we may need to look at further testing for penile pain. Patient verbalized understanding. OAB (overactive bladder) 11/09/2020 Assessment & Plan (11/13/2020 6:03 PM LEARNING ANALYST): -Symptoms are suggestive of OAB. Prostate size [...] 11/09/2020 Assessment & Plan (11/09/2020 5:21 PM LEARNING ANALYST): -Patient has history of diverticulitis, benign tumor [...] appointment. Assessment & Plan (11/09/2020 5:20 PM LEARNING ANALYST): -CT showing non-obstructing stones in kidney. Patient [...] 0 Assessment & Plan (11/16/2019 4:14 PM LEARNING ANALYST): Old psychiatrist, Dr Easley, in [place]. Rx'ed [...] 11/16/2019 Assessment & Plan (11/16/2019 4:11 PM LEARNING ANALYST): Not taking meds as prescribed. Pt asked to leave before A1C could be tested. Severe obesity (BMI 35.0-35.9 with comorbidity) 11/16/2019 Assessment & Plan (11/16/2019 4:14 PM LEARNING ANALYST): Body mass index is 35.12 kg/m . Unable to funeral counselor him given that he was escorted [...] (03/12/2017): Scheduled appointment with psychiatric, April 01, [facility] in [place]. 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 Wasn't able to see many doctors in the area because he had been fired. Encounters Date Type Department Care Team Description 10/24/2024 Telephone [facility] Gastroenterology at [address] [place] [address] Jd Mayes MD 10/22/2024 6:32 PM LEARNING ANALYST - 10/22/2024 8:51 PM LEARNING ANALYST Emergency [facility] Emergency Department [address] [place] [address] Influenza A (Primary Dx); Acute otitis media, unspecified otitis media type Discharge Disposition: Discharge to home or self care from Last 3 Months Immunizations Immunization Administration [...] on file Legal Sex Male 1:40 AM LEARNING ANALYST Gender Identity Not on file Sexual Orientation Not on file Obstetrics History Last Filed Vital Signs Vital Sign Reading Time Taken Comments Blood Pressure 143/89 10/22/2024 8:25 PM LEARNING ANALYST Pulse 73 10/22/2024 8:25 PM LEARNING ANALYST Temperature 37.2 C (99 F) 10/22/2024 4:46 PM LEARNING ANALYST Respiratory Rate 16 10/22/2024 8:25 PM LEARNING ANALYST Oxygen Saturation 99% 10/22/2024 8:25 PM LEARNING ANALYST Inhaled Oxygen Concentration - - Weight 120.1 kg (264 lb 12.4 oz) 10/22/2024 4:46 PM LEARNING ANALYST Height 188 cm (6' 2 ) 10/22/2024 4:46 PM LEARNING ANALYST Body Mass Index 33.99 10/22/2024 4:46 PM LEARNING ANALYST Plan of Treatment Scheduled Procedures Name Priority [...] 11/16/2019, 11/16/2019, 03/12/2017 Lipid Panel 01/21/2021 01/22/2020, 0 03/2020, 03/26/2019, Additional history exists Zoster Vaccine (1 of 2) 02/09/2022 Influenza Vaccine (Season Ended) 2025 eGFR 10/13/2025 10/13/2024, 07/14, 06/23/2024, Additional history exists Colon Cancer Screening-Colonoscopy 07/01/20272016 Procedures Procedure Name Priority Date/Time Associated Diagnosis Comments XR CHEST PA LATERAL 2 VIEWS ED 10/22/2024 5:05 PM LEARNING ANALYST URINALYSIS, MICROSCOPIC ONLY STAT 10/22/2024 5:01 PM LEARNING ANALYST URINALYSIS AND REFLEX TO MICROSCOPIC AND CULTURE STAT 10/22/2024 5:01 PM LEARNING ANALYST INFLUENZA A/B, RSV, AND COVID-19 PCR STAT 10/22/2024 4:59 PM LEARNING ANALYST EGFR STAT 10/13/2024 10:11 AM LEARNING ANALYST HEMOGLOBIN A1C Routine 01/22/2020 9:58 AM CDT LIPID PANEL Routine 01/22/2020 9:58 AM CDT COLONOSCOPY REPORT 07/01/2017 from Last 3 Months or Most Recently Relevant to Health Maintenance Results * XR Chest PA Lateral 2 Views (10/22/2024 5:05 PM LEARNING ANALYST) Anatomical Region Laterality Modality Body, Chest N/A Computed Radiogr aphy 10/22/2024 5:38 PM LEARNING ANALYST Narrative 10/22/2024 5:38 PM LEARNING ANALYST EXAM DESCRIPTION: XR CHEST PA LATERAL 2 [...] Dave Kat M.D. KT: SARTHAK Report ID: [id number] Reading Location: [id number] Procedure Note Dave Kat MD - 10/22/2024 [...] Dave Kat M.D. KT: KT Report ID: [id number] Reading Location: [place] [address] us Jhoana Potts NP IMG XR PROCEDURES Final Resul t * (ABNORMAL) Urinalysis reflex to microscopic and culture Urine, clean voided (10/22/2024 5:01 PM LEARNING ANALYST) Color, ur Yellow Yellow Comment:Testing performed by : [address] [address] Clarity, ur Clear Clear VAL Comment:Testing performed by : [address] [address] Specific gravity, ur 1.009 1.003 - 1.030 VAL Comment:Testing performed by : [address] [address] pH, urine 6.5 VAL Comment: Interpretive Data U rine pH is affected by diet, medications, systemic acid-base disturbances, and renal tubular function. pH may affect urinary stone formation. For example, urine pH below 6.0 may help reduce the tendency for calcium phosphate stones and pH greater than 6.0 may reduce the tendency for uric acid stone formation. Source: [employer] Current Interpretive Data was last revised on 2017 Testing performed by: [address] [address] Protein, ur ql Trace(A) Negative VAL Comment:Testing performed by : [address] [address] Glucose, ur ql Negative Negative VAL Comment:Testing performed by : [address] [address] Ketones, ur Negative Negative VAL MULLER Comment:Testing performed by : [facility], [address] [place] [address], [place]., [address] Bilirubin, ur Negative Negative VAL MULLER Comment:Testing performed by : [address], [place]., [address] Blood, ur Negative Negative VAL MULLER Comment:Testing performed by : [address], [place]., [address] Urobilinogen, ur <2.0 <2.0 mg/dL VAL MULLER Comment:Testing performed by : [address], [place]., [address] Nitrite, ur Negative Negative VAL MULLER Comment:Testing performed by : [address], [place]., [address] Leukocyte esterase, ur Negative Negative VAL MULLER Comment:Testing performed by : [address], [place]., [address] UA reflex comment Reflex to microscopic UA will be performed. VAL MULLER Comment:Testing performed by : [address], [place]., [address] Urine, clean voided 10/22/2024 5:01 PM LEARNING ANALYST 10/22/2024 5:06 PM LEARNING ANALYST Jhoana Potts NP LAB MICROBIOLOGY - GENERAL OR DERABLES Final Result VAL [address] [facility] Department [place] [address] * Urinalysis, microscopic only (10/22/2024 5:01 PM LEARNING ANALYST) WBC, ur 0-5 0 - 5 /HPF Comment:Testing performed by : [address], [place]., [address] RBC, ur 0-2 0 - 2 /HPF VAL MULLER Comment:Testing performed by : [address] [address] Culture Reflex Comment Reflex conditions for urine culture (WBC >10) not met. VAL MULLER Comment:Testing performed by : [address], [place]., [address] Urine, clean voided 10/22/2024 5:01 PM LEARNING ANALYST 10/22/2024 5:06 PM LEARNING ANALYST Jhoana Potts NP LAB URINE ORDERABLES Final Re sult Performing Organization Address [facility]/State/ZIP Co de Phone Number VAL [address] [facility] Department of Laboratories [place], [place] [phone] * (ABNORMAL) Influenza A/B, RSV, and COVID-19 PCR Nasopharyngeal (10/22/2024 4:59 PM LEARNING ANALYST) COVID-19 RNA Negative Negative Comment:Testing performed by : [address] [address] Influenza A RNA Positive(A) Negative [facility] Comment:Testing performed by : [address] [address] Influenza B RNA Negative Negative [facility] Comment:Testing performed by : [address] [address] RSV RNA Negative Negative [facility] Comment: Interpretive data: Testing performed by [facility]. This test is performed using the AFTER-MOUSE Xpert Xpress CoV-2/Flu/RSV plus assay. This is a multiplex, real-time reverse transcriptase PCR assay intended for the qualitative detection of nucleic acid from SARS-CoV-2, influenza A, influenza B, and respiratory syncytial virus. This assay has been cleared by the [place] Food and Drug administration. The performance characteristics have been verified by the [facility]. Results must be considered in the clinical context, and a negative result does not rule out infection. Interpretive Data last revised 2023 Testing performed by: [address] [address] Nasopharyngeal 10/22/2024 4: 59 PM LEARNING ANALYST 10/22/2024 5:05 PM LEARNING ANALYST Narrative VAL - 10/22/2024 5:52 PM LEARNING ANALYST Is the Patient experiencing symptoms consistent with COVID?->Yes us Jhoana Potts NP LAB MICROBIOLOGY - GENERAL OR DERABLES Final Result Performing Organization Address City/[facility] Co de Phone Number VAL [address] [facility] Department [place] [address] * eGFR (10/13/2024 10:11 AM LEARNING ANALYST) eGFR >90 >=60 mL/min/1. 73 m2 Comment: [...] was last reviewed 2021. Testing performed by: [facility], [address] [place] [address]., [address] Blood 10/13/2024 10:1 1 AM LEARNING ANALYST 10/13/2024 10:24 AM LEARNING ANALYST Miguel Stokes DO LAB BLOOD ORDERABLES Final Result Performing Organization Address [facility] Co de Phone Number VAL [address] [facility] [place] [address] * (ABNORMAL) Hemoglobin A1c (01/22/2020 9:58 AM CDT) Hemoglobin A1c % 6.2(H) 4.0 - 5.6 % [facility] Comment: ADA 2016 GUIDELINES: Initial Diagnostic Criteria HbA1c Result: Interpretation: <5.7% Normal 5.7-6.4% At risk for diabetes mellitus >=6.5% Consistent with diabetes mellitus Diabetes monitoring Target value (ADA Recommended) <7% 01/22/2020 9:58 AM CDT 01/22/2020 10:14 AM CDT Narrative Resulting Agency Comment CLI us Charanjit Sheffield MD LAB BLOOD ORDERABLES Final Result Performing Organization Address [facility] Co de Phone Number [address] [phone] * (ABNORMAL) Lipid panel (01/22/2020 9:58 AM CDT) Triglycerides 173(H) 0 - 149 mg/dL [facility] Comment: National Lipid Association/NCEP Guidelines: Normal < 150 mg/dL Borderline high 150-199 mg/dL High 200-499 mg/dL Very High >=500 mg/dL Cholesterol 152 0 - 199 mg/dL [facility] Comment: National Lipid Association/NCEP Guidelines: Desirable < 200 mg/dL Borderline high: 200-239 mg/dL High Risk: >=240 mg/dL HDL Cholesterol 22 mg/dL [facility] Comment: Reference Ranges: Males: >=40 mg/dL Females: >=50 mg/dL LDL Cholesterol, Calc 95 0 - 129 mg/dL [facility] Comment: National Lipid Association/NCEP Guidelines: Optimal < 100 mg/dL Near Optimal 100-129 mg/dL Borderline high 130-159 mg/dL High >=160 mg/dL Cholesterol/HDL Ratio 6.9 [facility] Comment: Optimal < 3.5:1 High > 5:1 01/22/2020 9:58 AM CDT 01/22/2020 10:14 AM CDT Narrative Resulting Agency Comment CLI us Charanjit Sheffield MD LAB BLOOD ORDERABLES Final Result Performing Organization Address City/[facility]/ZIP Co de Phone Number [address] [phone] * COLONOSCOPY REPORT (07/01/2017) Anatomical Region Laterality Modality Other us Provider Scanning GI PROCEDURE ORDERABLES Edited Result - Final from Last 3 Months or Most Recently Relevant to Health Maintenance Insurance Care Teams Taxonomist Relationship Specialty Start Date End Date Unknown, Notinfile PCP - General 08/01/24 Miscellaneous, Not In File 11/16/19
--- OUTSIDE RECORDS SUMMARY | 2025-01-15 21:30 | XMS_ITS | Encounter Summary ---
Author Organization [facility] Health Address [address] [facility] [place] [address] Care Team Providers Care Heritage Consultant Name Role Phone Unavailable Primary Care Provider Unavailabl e Reason for Visit * Reason Onset Date Comments Erroneous encounter-disregard 10/20/2019 Encounter Details Date Type Department Care Team (Late st Contact Info) Description 10/20/2019 Telephone [facility] [address] [facility] [address] [place] [address] Radha Palafox, PAPERBOARD MACHINE OPERATOR-KNIFE CHANGER [address] OF [facility] [place] [phone] Erroneous encounter-disregard Social History Tobacco Use Types Packs/Day Years Used Date Smoking Tobacco: Former Smokeless Tobacco: Never Alcohol Use Standard Drinks/Week Comments No 0 (1 standard drink = 0.6 oz pur e alcohol) Sex and Gender Information Value Date Recorded Sex Assigned at Not on file Legal Sex Male 6:27 AM ADMINISTRATIVE SERVICES OFFICER Gender Identity Not on file Sexual Orientation Not on file documented as of this encounter Miscellaneous Notes * Telephone Encounter - Lynne Mendes - 10/20/2019 10:46 AM CST err NISTRATIVE SERVICES OFFICER documented in this encounter Plan of Treatment Not on file documented as of this encounter Visit Diagnoses Not on filedocumented in this encounter
--- OUTSIDE RECORDS SUMMARY | 2025-01-15 21:30 | XMS_ITS | Encounter Summary ---
Author Organization [facility] Address [address] [facility] [place] [address] Care Team Providers Care Material Assembler Name Role Phone Unavailable Primary Care Provider Unavailabl e Reason for Visit * Reason Onset Date Comments Med Question 10/18/2019 Med Question 10/19/2019 Order 10/20/2019 XRAY Follow-up 10/20/2019 Encounter Details Date Type Department Care Team (Late st Contact Info) Description 10/18/2019 Telephone [facility] [address] [facility] [address] [place] [address] Radha Palafox, PAYROLL DIRECTOR-MACHINE FILLER SERVICER [address] OF [facility] [place] [phone] Med Question; Med Question; Order (XRAY); Follow-up Social History Tobacco Use Types Packs/Day Years Used Date Smoking Tobacco: Former Smokeless Tobacco: Never Alcohol Use Standard Drinks/Week Comments No 0 (1 standard drink = 0.6 oz pur e alcohol) Sex and Gender Information Value Date Recorded Sex Assigned at Not on file Legal Sex Male 6:27 AM FLOOR ASSOCIATE Gender Identity Not on file Sexual Orientation Not on file documented as of this encounter Miscellaneous Notes * Telephone Encounter - Remedios Catalan LPN - 10/20/2019 2:05 PM FLOOR ASSOCIATE Pt came to 207 window. Pt is demanding xrays be done before his appointment. Pt is demanding that the nurse call me about this. I came early to have this done. I thought you people were here to helppatients. I want this done before the appointment because I want the results now. R ASSOCIATE * Telephone Encounter - Lynne Mendes - 10/20/2019 1:47 PM CST Upon chart review, no new update message from READING SPECIALIST Petrebekachen or xray order in system at this time. Outbound to pt to inform [place] called pt to inform of above update and pt verbalized understanding. Pt reports he is at [facility] nowand is going to go to office to see if can get an order for an Xray and then go to the lab to get labs drawn. No further questions or concerns at this time. # [phone] (home) Routed to provider for further review Routed to [facility] Nurse Communication for further review R ASSOCIATE * Telephone Encounter - Lynne Mendes - 10/20/2019 12:35 PM CST Upon chart review, TN checking for update from READING SPECIALIST Petzchen to c/b pt. As of this time, no new update from READING SPECIALIST Monalisachen. Will continue to monitor for update. R ASSOCIATE * Telephone Encounter - Lynne Mendes - 10/20/2019 10:54 AM CST Outbound to [facility] Venus - unable to reach Upon chart review, Liz Catalan forwarded message to VENTURA Palafox for review. R ASSOCIATE * Telephone Encounter - Lynne Mendes - 10/20/2019 9:54 AM CST Pt calling in b/c he is coming in to office today for OV w/ VENTURA Palafox @ 3:20pm and requesting an xray for kidney/left sided pain. Pt reports forgot to ask READING SPECIALIST Vivienne yesterday during phone conversation for xray and is coming into city and would like to get xray before OV today so VENTURA aPlafox canbe able to read xray before OV. [...] than 20min w/ the doctor . CB# [phone] (home) Routed to provider for further review HIGH PRIORITY R ASSOCIATE * Telephone Encounter - Radha Palafox APRN-CNP - 10/19/2019 1:18 PM FLOOR ASSOCIATE Phone call--multiple vague complaints of not feeling [...] he will keep appt tomorrow. MELISA Diaz R ASSOCIATE * Telephone Encounter - Jovan Grewal - [...] with the provider today, call back number [phone] provided Message routed to provider R ASSOCIATE * Telephone Encounter - Mallory Flores RN [...] like this he had to take xanax. [phone] R ASSOCIATE documented in this encounter Plan of Treatment Not on file documented as of this encounter Visit Diagnoses Not on filedocumented in this encounter
--- OUTSIDE RECORDS SUMMARY | 2025-01-15 21:30 | XMS_ITS | Encounter Summary ---
Author Organization [facility] Health Address [address] [facility] [place] [address] Care Team Providers Care Horticultural Nursery Assistant Name Role Phone Unavailable Primary Care Provider Unavailabl e Reason for Visit * Reason Onset Date Comments FLU 11/27/2019 Encounter Details Date Type Department Care Team (Late st Contact Info) Description 11/27/2019 Telephone [facility] [address] [place] [address] Radha Palafox, PREASSEMBLER PRINTED CIRCUIT BOARD-PIANO MACHINE OPERATOR [address] [facility] [address] DIV OF [facility] [place] [phone] FLU Social History Tobacco Use Types Packs/Day Years Used Date Smoking Tobacco: Former Smokeless Tobacco: Never Alcohol Use Standard Drinks/Week Comments No 0 (1 standard drink = 0.6 oz pur e alcohol) Sex and Gender Information Value Date Recorded Sex Assigned at Not on file Legal Sex Male 6:27 AM GATE SUPERVISOR Gender Identity Not on file Sexual Orientation Not on file documented as of this encounter Miscellaneous Notes * Telephone Encounter - Mallory Flores RN - 11/27/2019 1:21 PM CDT Caller transferred to triage line from tree sapper and call got disconnected. Per tree sapper caller thinks he has coronavirus Attempted to call back and left vm. documented in this encounter Plan of Treatment Not on file documented as of this encounter Visit Diagnoses Not on filedocumented in this encounter
--- OUTSIDE RECORDS SUMMARY | 2025-01-15 21:30 | XMS_ITS | Encounter Summary ---
Author Organization [facility] Address [address] [facility] [place] [address] Care Team Providers Care Evp Global Product Leadership Name Role Phone Unavailable Primary Care Provider Unavailabl e Reason for Visit * Reason Onset Date Comments Nausea 10/02/2019 Cramps 10/02/2019 Pain Abdominal 10/02/2019 Encounter Details Date Type Department Care Team (Late st Contact Info) Description 10/02/2019 Telephone [facility] [address] [facility] [address] [place] [address] Radha Palafox, QUILL MACHINE TENDER-LAST CODE STRIPER [address] OF [facility] [place] [phone] Nausea; Cramps; Pain Abdominal Social History Tobacco Use Types Packs/Day Years Used Date Smoking Tobacco: Former Smokeless Tobacco: Never Alcohol Use Standard Drinks/Week Comments No 0 (1 standard drink = 0.6 oz pur e alcohol) Sex and Gender Information Value Date Recorded Sex Assigned at Not on file Legal Sex Male 6:27 AM TOBACCO CLOTH RECLAIMER Gender Identity Not on file Sexual Orientation [...] no UTI. Pt requesting GIM office call [facility], [phone] for ED report for VENTURA Palafox to review. NV recommended pt call ED and request medical records to be faxed to GI and pt raised voice w/ increased agitation at NV stating he had no time and would [...] for c/b to discuss sx further. CB# [phone] Routed to provider for further review CCO CLOTH RECLAIMER documented in this encounter Plan of Treatment Not on file documented as of this encounter Visit Diagnoses Not on filedocumented in this encounter
--- OUTSIDE RECORDS SUMMARY | 2025-01-15 21:31 | XMS_ITS | Encounter Summary ---
Author Organization [facility] Health Address [address] [facility] [place] [address] Care Team Providers Care Pipe Machine Operator Name Role Phone Unavailable Primary Care Provider Unavailabl e Reason for Visit * Reason Onset Date Comments Order 08/02/2019 Encounter Details Date Type Department Care Team (Late st Contact Info) Description 08/02/2019 Telephone [facility] [address] [place] [address] Radha Palafox, MANAGER SALES TRAINING-CURRICULUM SPECIALIST [address] OF [facility] [place] [phone] Order Social History Tobacco Use Types Packs/Day Years Used Date Smoking Tobacco: Former Smokeless Tobacco: Never Alcohol Use Standard Drinks/Week Comments No 0 (1 standard drink = 0.6 oz pur e alcohol) Sex and Gender Information Value Date Recorded Sex Assigned at Not on file Legal Sex Male 6:27 AM INTERNATIONAL STUDENT ADVISOR Gender Identity Not on file Sexual Orientation [...] Sleep study ordered and referral to GI. RNATIONAL STUDENT ADVISOR documented in this encounter Plan of Treatment Not on file documented as of this encounter Visit Diagnoses Diagnosis Loud snoring- Primary Class 3 severe obesity with serious comorbidity in adult, unspecified BMI, unspecified obesity type Sleep apnea, unspecified type documented in this encounter
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
--- OUTSIDE RECORDS SUMMARY | 2025-01-15 21:31 | XMS_ITS | Encounter Summary ---
Author Organization [employer] Address [address] [place] [address] Care Team Providers Care Tinter Photograph Name Role Phone Howard Trinidad MD Primary [...] on file Legal Sex Male 4:57 AM ADJUNCT HISTORY INSTRUCTOR Gender Identity Not on file Sexual Orientation Not on file documented as of this encounter Plan of Treatment Not on file documented as of this encounter Visit Diagnoses Diagnosis Anxiety state, unspecified- Primary documented in this encounter Care Teams Tinter Photograph Relationship Specialty Start Date End Date Howard Trinidad MD PCP - General Family Practice 01/25/16 01/26/16 documented as of this encounter
--- OUTSIDE RECORDS SUMMARY | 2025-01-15 21:31 | XMS_ITS | Encounter Summary ---
Author Organization [employer] Address [address] [place] [address] Care Team Providers Care Art Gallery Director Name Role Phone Howard Trinidad MD Primary Care Provider Un available Encounter Details Date Type Department Care Team (Late st Contact Info) Description 04/27/2009 Outpatient Historical [facility] Er, Authorized P NO ADDRESS ON FILE Balta Sahu MD [address] [place] [address] [place] [address] Edin Marcum MD [facility] [place] [address] Social History Tobacco Use Types Packs/Day Years Used Date Smoking Tobacco: Never Assessed Sex and Gender Information Value Date Recorded Sex Assigned at Not on file Legal Sex Male 4:57 AM AGER OPERATOR Gender Identity Not on file Sexual [...] AM CDT Narrative 04/27/2009 8:09 AM CDT [address] [address] [place], [place] [address] Admit Date: 04/27/2009 CARLOS KELLY Sex: M Admit Prov: BALTA SAHU Date: 1970 Primary Care Prov: CMRN: [id number] [facility] [address] [place] [address] IMAGING SERVICES Ordering Prov: N/A Accession Number: [id number] Interpretation PORTABLE AP CHEST, 04/27/2009 INDICATION: Chest pain. FINDINGS: The heart and mediastinum are normal. There is no infiltrate, contusion, pneumothorax or pleural fluid. The visualized bony thorax is normal. IMPRESSION: Normal AP chest. . Dictated by: LEANDER GORDON 04/27/2009 07:51 Electronically signed by: LEANDER GORDON 04/27/2009 08:07 Transcribed: 04/27/2009 07:56 SMM Procedure Note Leander Gordon - 04/27/2009 [address] [place] [place], [place] [address] Admit Date: 04/27/2009 CARLOS KELLY Sex: M Admit Prov: BALTA SAHU Date: 1970 Primary Care Prov: CMRN: [id number] [facility] [address] [place] [address] IMAGING SERVICES Ordering Prov: N/A Interpretation PORTABLE [...] 27.2 - 32.6 pg [facility] MPV 9.7 9.3 - 12.4 fL [facility] HEMATOCRIT 42.4 40.0 - 48.0 % [facility] RDW-STDEV 41.9 37.1 - 48.7 fL [facility] RBC 5.29 4.50 - 5.40 M/uL [facility] MCHC 34.7 31.5 - 35.5 % [facility] MCV 80.2(L) 82.0 - 99.0 fL [facility] PLATELETS 187 140 - 350 K/uL [facility] HEMOGLOBIN 14.7 13.6 - 16.5 g/dL [facility] RDW 14.7(H) 11.5 - 14.5 % [facility] WBC 7.2 4.0 - 9.8 K/uL [facility] BASOPHILS 0 0 - 2 % [facility] BASOPHILS ABSOLUTE 0.02 0.00 - 0.20 K/uL [facility] MONOCYTES 8 3 - 13 % [facility] MONOCYTE ABSOLUTE 0.56 0.10 - 1.30 K/uL [facility] NEUTROPHILS 56 45 - 70 % [facility] NEUTROPHIL ABSOLUTE 4.00 1.90 - 7.00 K/uL [facility] EOSINOPHILS 2 0 - 7 % [facility] EOSINOPHIL ABSOLUTE 0.16 0.00 - 0.70 K/uL [facility] LYMPHOCYTES 34 16 - 45 % [facility] LYMPHOCYTE ABSOLUTE 2.43 0.70 - 4.50 K/uL [facility] Blood specimen (specimen) 04/27/2009 12:08 AM CDT 04/27/2009 12:13 AM CDT Edin Marcum MD HEMATOLOGY ORDERABLES Edited Performing Organization Address [facility] Co de Phone Number [facility] CLIA# [id number] [address] [place] [address] * CARDIAC ENZYMES (04/27/2009 12:08 AM CDT) [facility] TROPONIN T <0.01 <=0.03 ng/mL [facility] TROPONIN T INTERP Negative [facility] Blood specimen (specimen) 04/27/2009 12:08 AM CDT 04/27/2009 12:13 AM CDT Edin Marcum MD CHEMISTRY ORDERABLES Edited Performing Organization Address [facility] de Phone Number [facility] CLIA# [id number] [address] [place] [address] * (ABNORMAL) COMPREHENSIVE METABOLIC PANEL (04/27/2009 12:08 AM CDT) CREATININE 0.92 0.67 - 1.17 mg/dL [facility] ALT 130(H) 0 - 41 U/L [facility] SODIUM 141 135 - 145 mmol/L [facility] ALKALINE PHOSPHATASE 71 40 - 129 U/L [facility] CO2 32(H) 22 - 30 mmol/L [facility] BILIRUBIN TOTAL 1.2(H) 0.2 - 1.0 mg/dL [facility] POTASSIUM 3.7 3.5 - 4.9 mmol/L [facility] TOTAL PROTEIN 8.3 6.3 - 8.6 g/dL [facility] GLUCOSE 81 65 - 99 mg/dL [facility] AST 118(H) 12 - 38 U/L [facility] BUN 10 6 - 20 mg/dL [facility] CALCIUM 9.7 8.6 - 10.2 mg/dL [facility] ALBUMIN 4.6 3.4 - 4.8 g/dL [facility] CHLORIDE 101 96 - 108 mmol/L [facility] GFR, >60 >=60 mL/min/1. 7 sq meter [facility] GFR >60 >=60 mL/min/1. 7 sq meter [facility] Comment: Modification of Diet in Renal Disease (MDRD) study formula. Estimated GFR rate interpretative information for both Americans and non- Americans is available on the [facility] Intranet at: [email or web address] Select: Lab Policies and Procedures Select: Reference Ranges - GFR Blood specimen (specimen) 04/27/2009 12:08 AM CDT 04/27/2009 12:13 AM CDT us Edin Marcum MD CHEMISTRY ORDERABLES Edited [facility] CLIA# [id number] [address] [place] [address] documented in this encounter Visit Diagnoses Not on filedocumented in this encounter Care Teams Art Gallery Director Relationship Specialty Start Date End Date Howard Trinidad MD PCP - General Family Practice 01/25/16 01/26/16 documented as of this encounter
--- OUTSIDE RECORDS SUMMARY | 2025-01-15 21:31 | XMS_ITS | Encounter Summary ---
Author Organization [employer] Address [address] [place] [address] Care Team Providers Care Operator Name Role Phone Howard Trinidad MD Primary Care Provider Un available Encounter Details Date Type Department Care Team (Late st Contact Info) Description 03/02/2004 Outpatient Historical [facility] Ian GauthierDO [id number] [place] [id number] Er, Authorized P NO ADDRESS ON FILE ANXIETY STATE NOS (Primary Dx) Social History Tobacco Use Types Packs/Day Years Used Date Smoking Tobacco: Never Assessed Sex and Gender Information Value Date Recorded Sex Assigned at Not on file Legal Sex Male 4:57 AM STEELWORKER Gender Identity Not on file Sexual Orientation Not on file documented as of this encounter Plan of Treatment Not on file documented as of this encounter Visit Diagnoses Diagnosis Anxiety state, unspecified- Primary documented in this encounter Care Teams Operator Relationship Specialty Start Date End Date Howard Trinidad MD PCP - General Family Practice 01/25/16 01/26/16 documented as of this encounter
--- OUTSIDE RECORDS SUMMARY | 2025-01-15 21:31 | XMS_ITS | Encounter Summary ---
Author Organization [employer] Address [address] [place] [address] Care Team Providers Care Activity Aide Name Role Phone Howard Trinidad MD Primary [...] Primary documented in this encounter Care Teams Activity Aide Relationship Specialty Start Date End Date Howard Trinidad MD PCP - General Family Practice 01/25/16 01/26/16 documented as of this encounter
--- OUTSIDE RECORDS SUMMARY | 2025-01-15 21:31 | XMS_ITS | Encounter Summary ---
Author Organization [employer] Address [address] [place] [address] Care Team Providers Care Service Cleaner Name Role Phone Howard Trinidad MD Primary [...] on file Legal Sex Male 4:57 AM CANCELING AND CUTTING CONTROL CLERK Gender Identity Not on file Sexual Orientation Not on file documented as of this encounter Plan of Treatment Not on file documented as of this encounter Visit Diagnoses Diagnosis Unspecified sinusitis (chronic)- Primary documented in this encounter Care Teams Service Cleaner Relationship Specialty Start Date End Date Hoawrd Trinidad MD PCP - General Family Practice 01/25/16 01/26/16 documented as of this encounter
--- OUTSIDE RECORDS SUMMARY | 2025-01-15 21:31 | XMS_ITS | Encounter Summary ---
Author Organization [employer] Address [address] [place] [address] Care Team Providers Care Card Lacer Name Role Phone Howard Trinidad MD Primary Care Provider Un available Encounter Details Date Type Department Care Team (Late st Contact Info) Description 07/11/2008 Outpatient Historical [facility] Er, Authorized P NO ADDRESS ON FILE Ryland Virgen MD [address] [place] [address] Social History Tobacco Use Types Packs/Day Years Used Date Smoking Tobacco: Never Assessed Sex and Gender Information Value Date Recorded Sex Assigned at Not on file Legal Sex Male 4:57 AM QUALITY ASSURANCE MONITOR Gender Identity Not on file Sexual Orientation Not on file documented as of this encounter Plan of Treatment Not on file documented as of this encounter Visit Diagnoses Not on filedocumented in this encounter Care Teams Card Lacer Relationship Specialty Start Date End Date Howard Trinidad MD PCP - General Family Practice 01/25/16 01/26/16 documented as of this encounter
--- OUTSIDE RECORDS SUMMARY | 2025-01-15 21:31 | XMS_ITS | Encounter Summary ---
Author Organization [facility] Address [address] [facility] [place] [address] Care Team Providers Care Enameler Name Role Phone Unavailable Primary Care Provider Unavailabl e Reason for Visit * Reason Onset Date Comments Medication Issue 10/24/2019 Encounter Details Date Type Department Care Team (Late st Contact Info) Description 10/24/2019 Telephone [facility] Internal Medicine [address] [facility] [address] [place] [address] Radha Palafox APRN-CNP [address] OF [facility] [place] [address] Medication Issue Social History Tobacco Use Types Packs/Day Years Used Date Smoking Tobacco: Former Smokeless Tobacco: Never Alcohol Use Standard Drinks/Week Comments No 0 (1 standard drink = 0.6 oz pur e alcohol) Sex and Gender Information Value Date Recorded Sex Assigned at Not on file Legal Sex Male 6:27 AM POWER STATION OPERATOR Gender Identity Not on file Sexual Orientation Not on file documented as of this encounter Miscellaneous Notes * Telephone Encounter - Radha Palafox APRN-CNP - 10/24/2019 5:44 PM POWER STATION OPERATOR Called patient. Again talking about his urinary [...] happy with anyone he gets. MELISA Diaz R STATION OPERATOR * Telephone Encounter - Mallory Flores RN - 10/24/2019 2:47 PM CST Patient calling again today He is complaining of being lightheaded. Please see below message R STATION OPERATOR * Telephone Encounter - Mallory Flores RN - 10/24/2019 2:27 PM CST Patient calling and he is out xanax and psychiatrist will not refill He wants to speak with you about this [phone] R STATION OPERATOR documented in this encounter Plan of Treatment Not on file documented as of this encounter Visit Diagnoses Not on filedocumented in this encounter
--- OUTSIDE RECORDS SUMMARY | 2025-01-15 21:31 | XMS_ITS | Encounter Summary ---
Author Organization [facility] Address [address] [place] [address] Care Team Providers Care Automated Cutting Machine Operator Name Role Phone None, Provider Primary Care Provider Unavaila ble Encounter Details Date Type Department Care Team (Late st Contact Info) Description 01/04/[address] [facility] Care Management [place], [place] [id number] Lee Ann Aguilar LCSW Social History Tobacco [...] documented as of this encounter Care Teams Automated Cutting Machine Operator Relationship Specialty Start Date End Date None, Provider, PCP - General 12/31/19 documented as of this encounter
--- OUTSIDE RECORDS SUMMARY | 2025-01-15 21:31 | XMS_ITS | CONTINUITY OF CARE DOCUMENT ---
Author Name christian gonzales Address Unknown Organization [facility] Address [address] [place] [address] [address] [place] [address] Phone [phone] Care Team Providers Care Livestock Speculator Name Role Phone Emily Gacria MD Unavailable [phone] Emily Garcia MD Unavailable [phone] PROBLEMS Condition Status Date Provider Notes Chest pain active Emily Garcia MD Diabetes, Type 2 active Emily Garcia MD Hyperlipidemia active Emily Garcia MD Hypertension active Emily Garcia MD Sleep apnea active Emily Garcia MD ENCOUNTERS Date Type Provider Location Encounter Diagnosis - In-person encounter Office Visit Emily Garcia MD [facility] Chest painDiabetes, Type 2HyperlipidemiaHyp ertensionSleep apnea [...] High 3 cholesterol, serum 182 mg/dL [employer] [phone]/10/2 3 basophil count, absolute 0.0 x10E3/uL [employer] [...] Estab. 3 platelet count 208 X10E3/UL [employer] [phone]/10/2 3 red blood cell distribution width 17.6 [...] 3.5-5.2 3 sodium, serum 142 mmol/L [employer] [phone]/10/2 3 urea nitrogen/creatinine ratio, serum 10 [employer] [...] Payer name Policy type / Coverage type [place] red democrat [place] [employer] MEDICAID (2) Medicaid [id number] ADVANCE DIRECTIVES Name Date DISCUSSED - NO DECISION MADE TREATMENT PLAN Date Name Performer [id number],S, Cholesterol, Total 182 mg/dL 100-199 Triglycerides [H] 205 mg/dL 0-149 HDL Cholesterol [L] 21 mg/dL >39 ! VLDL Cholesterol Aristides 37 mg/dL 5-40 LDL Chol Calc (NIH) [H] 124 mg/dL 0-99 Recommend dieatary modifications, see if triglycerides imrpoves, may need to start fish oil. Emily Garcia MD [id number],S, Emily aiken MD [id number],C, n eeds to get w/u done a pparanetly had a cath done 3 yrs ago at [facility] a nd needs to get new /u will do nuclear sress test and echo July 16, 2021 nuclear was denied by insurance s o he had stress echo done but was suboptimal Emily Garcia MD [id number],C, n eeds sleep study done no recent w/u done Emily Garcia MD [id number],C, Cholesterol, Total 182 mg/dL 100-199 Triglycerides [H] 205 mg/dL 0-149 HDL Cholesterol [L] 21 mg/dL >39 ! VLDL Cholesterol Aristides 37 mg/dL 5-40 LDL Chol Calc (NIH) [H] 124 mg/dL 0-99 Recommend dieatary modifications, see if triglycerides imrpoves, may need to start fish oil. Emily Garcia MD [id number],S, Emily aiken MD [id number],C, n eeds to get w/u done a pparanetly had a cath done 3 yrs ago at [facility] a nd needs to get new /u will do nuclear sress test and echo Emily Garcia MD [id number],C, h as angioedema not able to get amelia July 07, 2021 A 1C was 7.1,needs PCP and endcorine eval Emily Garcia MD [id number],C,n eeds sleep study done no recent w/u done Emily Garcia MD [id number],C,needs blood w ork Emily Garcia MD [id number],S,o n atenolol B P today: 152/80 Emily Garcia MD [id number],C,h as angioedema not able to get amelia Emily Garcia MD [id number],C,n eeds to get w/u done a pparanetly had a cath done 3 yrs ago at [facility] a nd needs to get [...] a cath done 3 yrs ago at [facility] a nd needs to get [...] Aristides 37 mg/dL 5-40 LDL Chol Calc ([facility]) [H] 124 mg/dL 0-99 Recommend dieatary modifications, see if triglycerides imrpoves, may need to start fish oil. Emily Garcia MD Telehealth Emily Garcia MD Telehealth: n eeds to get w/u done a pparanetly had a cath done 3 yrs ago at [facility] a nd needs to get [...] a cath done 3 yrs ago at [facility] a nd needs to get [...]
--- OUTSIDE RECORDS SUMMARY | 2025-01-15 21:31 | XMS_ITS | Encounter Summary ---
Author Organization [facility] Address [address] [place] [address] Care Team Providers Care Warehouse Shipper Name Role Phone Jagdeep Sanford DO Primary Care Provider [phone] Miscellaneous, Not In File Unavailable Unava ilable Charanjit [place] MD Primary Care Provider [phone] Carlos Gamboa MD Primary Care Provid er Unknown, Notinfile Primary Care Provider Unavail able No, Physician Primary Care Provider [phone] Unknown, Notinfile Primary Care Provider Unavail able No, Physician Primary Care Provider [phone] Unknown, Notinfile Primary Care Provider Unavail able Adin Lino MD Primary Care Provider + Unknown, Notinfile Primary Care Provider Unavail able Encounter Details Date Type Department Care Team (Late st Contact Info) Description 11/29/2019 Documentation [facility] Respiratory [address] [place] [address] Herbie Ramsey RRT Social History Tobacco Use [...] on file 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 No / Unsure 11/28/2019 10:38 PM CDT documented as of this encounter Plan of Treatment Scheduled Procedures Name Priority Associated Diagnoses Date/Ti tn COLONOSCOPY Open Access Diverticulitis documented as of this encounter Visit Diagnoses Not on filedocumented in this encounter Additional Health Concerns Infection Onset Date Last Indicated Resolved Time COVID: Suspected 10/11/2023 10/11/2023 10/11/2023 5:30 PM MONOMER RECOVERY SUPERVISOR COVID: Suspected 10/22/2024 10/22/2024 10/22/2024 5:53 PM MONOMER RECOVERY SUPERVISOR Influenza, adult 10/22/2024 10/22/2024 10/29/2024 3:05 AM MONOMER RECOVERY SUPERVISOR documented as of this encounter Care Teams Warehouse Shipper Relationship Specialty Start Date End Date Jagdeep Sanford DO [address] [place] [id number] PCP - General Family Medicine 11/16/19 01/20/20 Charanjit Sheffield MD PCP - General 01/21/20 09/29/20 Carlos Gamboa MD [address] [place] [id number] PCP - General Family Medicine 09/30/20 05/07/21 Unknown, Notinfile PCP - General 05/08/21 11/26/21 No, Physician PCP - General 11/27/21 01/13/23 Unknown, Notinfile PCP - General 01/14/23 01/17/24 No, Physician PCP - General 01/18/24 04/21/24 Unknown, Notinfile PCP - General 04/22/24 07/30/24 Adin Lino MD [address] [place] [address] PCP - General Internal Medicine 07/31/24 07/31/24 Unknown, Notinfile PCP - General 08/01/24 Miscellaneous, Not In File 11/16/19 documented as of this encounter
--- OUTSIDE RECORDS SUMMARY | 2025-01-15 21:31 | XMS_ITS | Clinical Summary ---
Author Organization [facility] Address [address] [place] [address] Care Team Providers Care Charge Manager Name Role Phone None, Provider MD Primary [...] Vaccines ( 1 - Tdap) 09/14/2011 09/13/2011 Pneumococcal Vaccine: 50+ Ye ars (1 of 1 - PCV) 02/09/2022 Zoster Vaccines (1 of 2) 02/09/2022 COVID-19 [...] patient's age to complete this topic Insurance [place] Care Teams Charge Manager Relationship Specialty Start Date End Date None, Provider, PCP - General 12/31/19
--- OUTSIDE RECORDS SUMMARY | 2025-01-15 21:31 | XMS_ITS | Encounter Summary ---
Author Organization [employer] Address 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
--- OUTSIDE RECORDS SUMMARY | 2025-01-15 21:31 | XMS_ITS | Clinical Summary ---
Author Organization [facility] Address [address] [place] [address] Phone Care Team Providers Care Fuse Cutter Name Role Phone Unavailable Primary Care [...]
--- OUTSIDE RECORDS SUMMARY | 2025-01-15 21:31 | XMS_ITS | Encounter Summary ---
Author Organization [employer] Address 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
--- OUTSIDE RECORDS SUMMARY | 2025-01-15 21:31 | XMS_ITS | Encounter Summary ---
Author Organization [employer] Address 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
--- OUTSIDE RECORDS SUMMARY | 2025-01-15 21:31 | XMS_ITS | Encounter Summary ---
Author Organization [employer] Address 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 He indicated he had called [...] on filedocumented in this encounter Care Teams Mail Distribution Scheme Examiner Relationship Specialty Start Date End Date Howard Trinidad MD PCP - General Family Practice 01/25/16 01/26/16 documented as of this encounter
--- OUTSIDE RECORDS SUMMARY | 2025-01-15 21:31 | XMS_ITS | Encounter Summary ---
Author Organization [employer] Address 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
--- OUTSIDE RECORDS SUMMARY | 2025-01-15 21:31 | XMS_ITS | Encounter Summary ---
Author Organization [employer] Address 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
--- OUTSIDE RECORDS SUMMARY | 2025-01-15 21:31 | XMS_ITS | Encounter Summary ---
Author Organization [employer] Address [address] [place] [address] Care Team Providers Care Paperhanger Contractor Name Role Phone Howard Trinidad MD Primary Care Provider Un available Encounter Details Date Type Department Care Team (Late st Contact Info) Description 11/22/2007 Outpatient Historical [facility] [place], Authorized P NO ADDRESS ON FILE Arie Justice MD [address] [place] [address] [place] [address] Social History Tobacco Use Types Packs/Day Years Used Date Smoking Tobacco: Never Assessed Sex and Gender Information Value Date Recorded Sex Assigned at Not on file Legal Sex Male 4:57 AM BANQUET COOK Gender Identity Not on file Sexual Orientation Not on file documented as of this encounter Plan of Treatment Not on file documented as of this encounter Visit Diagnoses Not on filedocumented in this encounter Care Teams Paperhanger Contractor Relationship Specialty Start Date End Date Howard Trinidad MD PCP - General Family Practice 01/25/16 01/26/16 documented as of this encounter
--- OUTSIDE RECORDS SUMMARY | 2025-01-15 21:31 | XMS_ITS | Encounter Summary ---
Author Organization [employer] Address [address] [place] [address] Care Team Providers Care Bulk Coolers Installer Name Role Phone Howard Trinidad MD Primary Care Provider Un available Encounter Details Date Type Department Care Team (Late st Contact Info) Description 03/02/2005 Outpatient Historical [facility] [place] [facility] [address] 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
--- OUTSIDE RECORDS SUMMARY | 2025-01-15 21:31 | XMS_ITS | Encounter Summary ---
Author Organization [employer] Address 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
--- OUTSIDE RECORDS SUMMARY | 2025-01-15 21:31 | XMS_ITS | Encounter Summary ---
Author Organization [employer] Address [address] [place] [address] Care Team Providers Care Tax Attorney Name Role Phone Howard Trinidad MD Primary [...] on file Legal Sex Male 4:57 AM DIRECTOR DERMATOLOGY Gender Identity Not on file Sexual Orientation Not on file documented as of this encounter Plan of Treatment Not on file documented as of this encounter Visit Diagnoses Diagnosis Abdominal pain, left lower quadrant- Primary documented in this encounter Care Teams Tax Attorney Relationship Specialty Start Date End Date Howard Trinidad MD PCP - General Family Practice 01/25/16 01/26/16 documented as of this encounter
--- OUTSIDE RECORDS SUMMARY | 2025-01-15 21:31 | XMS_ITS | Encounter Summary ---
Author Organization [email or web address] Address [address] [place] [address] Care Team Providers Care Certified Alcohol And Drug Counselor Name Role Phone Howard Trinidad MD Primary Care Provider Un available Encounter Details Date Type Department Care Team (Late st Contact Info) Description 06/03/2008 Outpatient Historical [facility] [place], Authorized P NO ADDRESS ON FILE Jose Soto MD 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
--- OUTSIDE RECORDS SUMMARY | 2025-01-15 21:31 | XMS_ITS | Encounter Summary ---
Author Organization [employer] Address 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
--- OUTSIDE RECORDS SUMMARY | 2025-01-15 21:31 | XMS_ITS | Encounter Summary ---
Author Organization [employer] Address 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
--- OUTSIDE RECORDS SUMMARY | 2025-01-15 21:31 | XMS_ITS | Clinical Summary ---
Author Organization [facility] Address [address] [place] [address] Care Team Providers Care Equipment Maintenance Engineer Name Role Phone Unavailable Primary Care [...] None 6 Active fluticasone (FLONASE) 50 mcg/spray [place], Suspension Administer 2 Sprays in each nostril [...] on file Legal Sex Male 4:57 AM BARREL LEVELER Gender Identity Not on file Sexual Orientation Not on file Occupation Industry Job Start Date Job End Date Not on file Not on file Not on file Not on file Not on file Not on file Not on file Not on file Last Filed Vital Signs Vital Sign Reading Time Taken Comments Blood Pressure 152/94 11/18/2019 7:07 AM BARREL LEVELER Pulse 66 11/18/2019 7:07 AM BARREL LEVELER Temperature 36.7 C (98.1 F) 11/18/2019 5:34 AM BARREL LEVELER Respiratory Rate 18 11/18/2019 7:07 AM BARREL LEVELER Oxygen Saturation 98% 11/18/2019 7:07 AM BARREL LEVELER Inhaled Oxygen Concentration - - Weight 120.2 kg (265 lb) 11/18/2019 5:34 AM BARREL LEVELER Height 188 cm (6' 2 ) 11/18/2019 5:34 AM BARREL LEVELER Body Mass Index 34.02 11/18/2019 5:34 AM BARREL LEVELER Plan of Treatment Health Maintenance Due Date [...] - 6.1 % 07/02/2015 5:25 PM CDT [facility] [employer] [facility] EST. AVG GLUCOSE, A1C 140 mg/dL 07/02/2015 5:25 PM CDT [facility] Blood Venipuncture - Floor Collect / Unknown 07/02/2015 2:10 AM CDT 07/02/2015 2:11 AM CDT Narrative [facility] - 07/02/2015 5:25 PM CDT Based on the ADAG study equation. us Iwona Arteaga APN CHEMISTRY ORDERABLES Final R esult [facility] CLIA# [id number] [address] [place] [address] from Last 3 Months or Most Recently Relevant to Health Maintenance Insurance MEDICAID Advance Directives For more information, please contact: [phone] * Full Code (Latest Code Status on File) Date Activated Date Inactivated Comments 07/02/2015 8:36 AM 07/02/2015 8:02 PM * Full Code Date Activated Date Inactivated Comments 08/28/2014 2:37 PM 08/28/2014 5:13 PM
--- OUTSIDE RECORDS SUMMARY | 2025-01-15 21:31 | XMS_ITS | Encounter Summary ---
Author Organization [facility] Address [address] [facility] [place] [address] Care Team Providers Care Grout Worker Name Role Phone Unavailable Primary Care Provider Unavailabl e Encounter Details Date Type Department Care Team (Late st Contact Info) Description 09/08/2019 Telephone [facility] [address] [facility] [address] [place] [address] Radha aPlafox APRN-VAMSI [address] [facility] [place] [address] Social History Tobacco Use Types Packs/Day Years Used Date Smoking Tobacco: Former Smokeless Tobacco: Never Alcohol Use Standard Drinks/Week Comments No 0 (1 standard drink = 0.6 oz pur e alcohol) Sex and Gender Information Value Date Recorded Sex Assigned at Not on file Legal Sex Male 6:27 AM PHARMACY CARE COORDINATOR Gender Identity Not on file Sexual [...] reluctantly let me connect him to scheduling MACY CARE COORDINATOR * Telephone Encounter - Radha Palafox APRN-CNP - 09/08/2019 1:59 PM PHARMACY CARE COORDINATOR Please tell him that he needs to elevate his legs. I can not do anything for him over the phone. MELISA Diaz MACY CARE COORDINATOR * Telephone Encounter - Mallory Flores RN [...] would like you to call him CB [phone] MACY CARE COORDINATOR documented in this encounter Plan of Treatment Not on file documented as of this encounter Visit Diagnoses Not on filedocumented in this encounter
--- OUTSIDE RECORDS SUMMARY | 2025-01-15 21:31 | XMS_ITS | Encounter Summary ---
Author Organization [employer] Address [address] [place] [address] Care Team Providers Care Cotton Cleaner Name Role Phone Howard Trinidad MD Primary Care Provider Un available Encounter Details Date Type Department Care Team (Late st Contact Info) Description 07/01/2006 Out[place] [facility] [place] [place] [facility] [place] [address] 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
--- OUTSIDE RECORDS SUMMARY | 2025-01-15 21:31 | XMS_ITS | Patient Health Record ---
Author Organization [facility] Address [address] [address] Care Team Providers Care Soap Worker Name Role Phone Charanjit Sheffield Primary Care Provider [phone] Allergies Allergen (clinical drug ingredient) Drug/Non Drug [...] Once a day for 30 days Active Ghcmbozf-Jbmsjnwrm-Qdophsjd 0.1 % 1 application into the lower [...] Problem Status W/U Status Risk Notes Problem 524590010460 Type 2 diabetes mellitus with other specified complication (E11.69) Active confirmed Problem 804930519 Mixed hyperlipidemia (E78.2) Active confirmed Problem 008113480 Nausea (R11.0) Active confirmed Problem 23500428 Anxiety (F41.9) Active confirmed Problem 258399547 Gastroesophageal reflux disease without esophagitis (K21.9) Active confirmed Problem 684929546 Mild intermitten t asthma without complication (J45.20) Active confirmed Problem 02406588 Essential hypertension (I10) Active confirmed Problem 149685957 Vertigo (R42) Active confirmed Problem 04528113 Neck pain (M54.2) Active confirmed Problem Abdominal pain (88320525) Abdominal pain (R10.9) Active confirmed Problem Depression (928049903) Depression (F32.9) Active confirmed Problem 361353185 Cervical spondylosis (M47.812) Active confirmed Problem Pain in right arm (052768383) Right arm pain (M79.601) Active confirmed Problem 560707731 Type 2 diabetes mellitus without complication, without long-term current use of insulin (E11.9) Active confirmed Problem History of gastrointestinal disease (995486139) History of diverticulosis (Z87.19) Active confirmed Problem 16784767 Allergic rhiniti s due to other allergic trigger, unspecified seasonality (J30.89) Active confirmed Problem 747912948 S/P cholecystectomy (Z90.49) Active confirmed Problem 76765751 Recurrent major depressive disorder, in partial remission (F33.41) Active confirmed Problem 18722736 Non-seasonal allergic rhinitis, unspecified trigger (J30.89) Active confirmed Problem 617792707 Elevated LFTs (R79.89) Active confirmed Problem 91456461 Discomfort of le ft eye (H57.12) Active confirmed Plan Of Treatment No Information Insurance Providers Payer Name Payer Address Payer Phone Subscriber Number Group Number Insured Name Patient Relationship to Insured Coverage Start Date Coverage End Date [address] [id number] WADE KELLY Self - patient is the insured 9 Medical (General) History Medical History History ICD Code sinusitis Vertigo Asthma Sleep Apnea diverticulitis fatty liver 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
[2025-01-15 21:35] VITALS: BP 181/93; PULSE 83; RESP 18; O2SAT 99
--- OUTSIDE RECORDS SUMMARY | 2025-01-15 22:24 | XMS_ITS | Encounter Summary ---
Author Organization [employer] Address 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
--- OUTSIDE RECORDS SUMMARY | 2025-01-15 22:24 | XMS_ITS | Encounter Summary ---
Author Organization [facility] Address [address] [place] [address] Care Team Providers Care Fruit Loader Machine Operator Name Role Phone Unavailable Primary Care Provider Unavailabl e Reason for Visit * Reason Onset Date Comments Medication Issue 10/24/2019 Encounter Details Date Type Department Care Team (Late st Contact Info) Description 10/24/2019 Telephone [facility] [address] [facility] [address] [place] [address] Radha Palafox APRN-CNP [address] [facility] [place] [id number] Medication Issue Social History Tobacco Use Types Packs/Day Years Used Date Smoking Tobacco: Former Smokeless Tobacco: Never Alcohol Use Standard Drinks/Week Comments No 0 (1 standard drink = 0.6 oz pur e alcohol) Sex and Gender Information Value Date Recorded Sex Assigned at Not on file Legal Sex Male 6:27 AM PLANT CONTROLLER Gender Identity Not on file Sexual Orientation Not on file documented as of this encounter Miscellaneous Notes * Telephone Encounter - Radha Palafox APRN-CNP - 10/24/2019 5:44 PM PLANT CONTROLLER Called patient. Again talking about his urinary [...] happy with anyone he gets. MELISA Diaz T CONTROLLER * Telephone Encounter - Mallory Flores RN - 10/24/2019 2:47 PM CST Patient calling again today He is complaining of being lightheaded. Please see below message T CONTROLLER * Telephone Encounter - Mallory Flores RN - 10/24/2019 2:27 PM CST Patient calling and he is out xanax and psychiatrist will not refill He wants to speak with you about this [phone] T CONTROLLER documented in this encounter Plan of Treatment Not on file documented as of this encounter Visit Diagnoses Not on filedocumented in this encounter
--- OUTSIDE RECORDS SUMMARY | 2025-01-15 22:24 | XMS_ITS | Encounter Summary ---
Author Organization [employer] Address 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
--- OUTSIDE RECORDS SUMMARY | 2025-01-15 22:24 | XMS_ITS | Encounter Summary ---
Author Organization [employer] Address [address] [place] [address] Care Team Providers Care Pearl Glue Operator Name Role Phone Howard Trinidad MD Primary Care Provider Un available Encounter Details Date Type Department Care Team (Late st Contact Info) Description 04/27/2009 Outpatient Historical [facility] Er, Authorized P NO ADDRESS ON FILE Balta Sahu MD [address] [place] [address] [place] [id number] Edin Marcum [place] [address] Social History Tobacco Use Types Packs/Day Years Used Date Smoking Tobacco: Never Assessed Sex and Gender Information Value Date Recorded Sex Assigned at Not on file 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 FINDINGS: The heart and mediastinum are normal. There is no infiltrate, contusion, pneumothorax or pleural fluid. The visualized bony thorax is normal. IMPRESSION: Normal AP chest. . Dictated by: LEANDER GORDON 04/27/2009 07:51 Electronically signed by: LEANDER GORDON 04/27/2009 08:07 Transcribed: 04/27/2009 07:56 SMM Procedure Note Leander Gordon - 04/27/2009 [address] [place], [place] [address] Admit Date: 04/27/2009 CARLOS KELLY Sex: M Admit Prov: BALTA SAHU Date: 1970 Primary Care Prov: CMRN: [id number] [facility] [address] [place] [address] IMAGING SERVICES Ordering Prov: N/A Interpretation PORTABLE [...] CDT) MCH 27.8 27.2 - 32.6 pg [facility] MPV 9.7 9.3 - 12.4 fL [facility] HEMATOCRIT 42.4 40.0 - 48.0 % [facility] RDW-STDEV 41.9 37.1 - 48.7 fL [facility] RBC 5.29 4.50 - 5.40 M/uL [facility] MCHC 34.7 31.5 - 35.5 % [facility] MCV 80.2(L) 82.0 - 99.0 fL [facility] PLATELETS 187 140 - 350 K/uL [facility] HEMOGLOBIN 14.7 13.6 - 16.5 g/dL [facility] RDW 14.7(H) 11.5 - 14.5 % [facility] WBC 7.2 4.0 - 9.8 K/uL [facility] BASOPHILS 0 0 - 2 % [facility] BASOPHILS ABSOLUTE 0.02 0.00 - 0.20 K/uL [facility] MONOCYTES 8 3 - 13 % [facility] MONOCYTE ABSOLUTE 0.56 0.10 - 1.30 K/uL [facility] NEUTROPHILS 56 45 - 70 % [facility] NEUTROPHIL ABSOLUTE 4.00 1.90 - 7.00 K/uL [facility] EOSINOPHILS 2 0 - 7 % [facility] EOSINOPHIL ABSOLUTE 0.16 0.00 - 0.70 K/uL [facility] LYMPHOCYTES 34 16 - 45 % [facility] LYMPHOCYTE ABSOLUTE 2.43 0.70 - 4.50 K/uL [facility] Blood specimen (specimen) 04/27/2009 12:08 AM CDT 04/27/2009 12:13 AM CDT Edin Marcum MD HEMATOLOGY ORDERABLES Edited Performing Organization Address [facility] Co de Phone Number [facility] CLIA# [id number] [address] [place] [address] * CARDIAC ENZYMES (04/27/2009 12:08 AM CDT) [facility] TROPONIN T <0.01 <=0.03 ng/mL [facility] TROPONIN T INTERP Negative [facility] Blood specimen (specimen) 04/27/2009 12:08 AM CDT 04/27/2009 12:13 AM CDT dEin Marcum MD CHEMISTRY ORDERABLES Edited Performing Organization Address [facility] de Phone Number [facility] CLIA# [id number] [address] [place] [address] * (ABNORMAL) COMPREHENSIVE METABOLIC PANEL (04/27/2009 12:08 AM CDT) CREATININE 0.92 0.67 - 1.17 mg/dL [facility] ALT 130(H) 0 - 41 U/L [facility] SODIUM 141 135 - 145 mmol/L [facility] ALKALINE PHOSPHATASE 71 40 - 129 U/L [facility] CO2 32(H) 22 - 30 mmol/L [facility] BILIRUBIN TOTAL 1.2(H) 0.2 - 1.0 mg/dL [facility] POTASSIUM 3.7 3.5 - 4.9 mmol/L [facility] TOTAL PROTEIN 8.3 6.3 - 8.6 g/dL [facility] GLUCOSE 81 65 - 99 mg/dL [facility] AST 118(H) 12 - 38 U/L [facility] BUN 10 6 - 20 mg/dL [facility] CALCIUM 9.7 8.6 - 10.2 mg/dL [facility] ALBUMIN 4.6 3.4 - 4.8 g/dL [facility] CHLORIDE 101 96 - 108 mmol/L [facility] GFR, >60 >=60 mL/min/1. 7 sq meter [facility] GFR >60 >=60 mL/min/1. 7 sq meter [facility] Comment: Modification of Diet in Renal Disease (MDRD) study formula. Estimated GFR rate interpretative information for both Americans and non- Americans is available on the [facility] Intranet at: [email or web address] Select: Lab Policies and Procedures Select: Reference Ranges - GFR Blood specimen (specimen) 04/27/2009 12:08 AM CDT 04/27/2009 12:13 AM CDT us Edin Marcum MD CHEMISTRY ORDERABLES Edited [facility] CLIA# [id number] [address] [place] [address] documented in this encounter Visit Diagnoses Not on filedocumented in this encounter Care Teams Pearl Glue Operator Relationship Specialty Start Date End Date Howard Trinidad MD PCP - General Family Practice 01/25/16 01/26/16 documented as of this encounter
--- OUTSIDE RECORDS SUMMARY | 2025-01-15 22:24 | XMS_ITS | Encounter Summary ---
Author Organization [facility] Address [address] [place] [address] Care Team Providers Care Help Desk Support Name Role Phone None, Provider Primary Care Provider Unavaila ble Encounter Details Date Type Department Care Team (Late st Contact Info) Description 01/04/2020 Telephone [facility] Care Management [place], [place] [id number] Lee Ann Aguilar LCSW Social History Tobacco [...] documented as of this encounter Care Teams Help Desk Support Relationship Specialty Start Date End Date None, Provider, PCP - General 12/31/19 documented as of this encounter
--- OUTSIDE RECORDS SUMMARY | 2025-01-15 22:24 | XMS_ITS | Encounter Summary ---
Author Organization [facility] Address [address] [facility] [place] [address] Care Team Providers Care Community Relations Coordinator Name Role Phone Unavailable Primary Care Provider Unavailabl e Reason for Visit * Reason Onset Date Comments Blood Pressure 12/01/2019 Encounter Details Date Type Department Care Team (Late st Contact Info) Description 12/01/2019 Nurse Triage [facility] [address] [facility] [address] [place] [address] Radha Palafox, AUTHOR AGENT-CLASS A REGIONAL TRUCK DRIVER [address] OF [facility] [place] [phone] Blood Pressure Social History Tobacco Use Types Packs/Day Years Used Date Smoking Tobacco: Former Smokeless Tobacco: Never Alcohol Use Standard Drinks/Week Comments No 0 (1 standard drink = 0.6 oz pur e alcohol) Sex and Gender Information Value Date Recorded Sex Assigned at Not on file 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 [...]
--- OUTSIDE RECORDS SUMMARY | 2025-01-15 22:24 | XMS_ITS | Encounter Summary ---
Author Organization [facility] Address [address] [facility] [place] [address] Care Team Providers Care Asphalt Paver Operator Name Role Phone Unavailable Primary Care Provider Unavailabl e Reason for Visit * Reason Onset Date Comments Erroneous encounter-disregard 10/20/2019 Encounter Details Date Type Department Care Team (Late st Contact Info) Description 10/20/2019 Telephone [facility] [address] [facility] [address] [place] [address] Radha Palafox, SILK SPREADER-PHYSICAL DIRECTOR [address] OF [facility] [place] [phone] Erroneous encounter-disregard Social History Tobacco Use Types Packs/Day Years Used Date Smoking Tobacco: Former Smokeless Tobacco: Never Alcohol Use Standard Drinks/Week Comments No 0 (1 standard drink = 0.6 oz pur e alcohol) Sex and Gender Information Value Date Recorded Sex Assigned at Not on file 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
--- OUTSIDE RECORDS SUMMARY | 2025-01-15 22:24 | XMS_ITS | Encounter Summary ---
Author Organization [employer] Address 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
--- OUTSIDE RECORDS SUMMARY | 2025-01-15 22:24 | XMS_ITS | Clinical Summary ---
Author Organization [facility] Address [address] [place] [address] Phone Care Team Providers Care Feltmaker Name Role Phone Unavailable Primary Care Provider [...]
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
--- OUTSIDE RECORDS SUMMARY | 2025-01-15 22:24 | XMS_ITS | Encounter Summary ---
Author Organization [employer] Address 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
--- OUTSIDE RECORDS SUMMARY | 2025-01-15 22:24 | XMS_ITS | Encounter Summary ---
Author Organization [employer] Address 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
--- OUTSIDE RECORDS SUMMARY | 2025-01-15 22:24 | XMS_ITS | Encounter Summary ---
Author Organization [employer] Address 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
--- OUTSIDE RECORDS SUMMARY | 2025-01-15 22:24 | XMS_ITS | Encounter Summary ---
Author Organization [employer] Address [address] [place] [address] Care Team Providers Care Pyridine Operator Name Role Phone Howard Trinidad MD [...] on file Legal Sex Male 4:57 AM MALE IMPERSONATOR Gender Identity Not on file Sexual Orientation Not on file documented as of this encounter Plan of Treatment Not on file documented as of this encounter Visit Diagnoses Diagnosis Abdominal pain, left lower quadrant- Primary documented in this encounter Care Teams Pyridine Operator Relationship Specialty Start Date End Date Howard Trinidad MD PCP - General Family Practice 01/25/16 01/26/16 documented as of this encounter
--- OUTSIDE RECORDS SUMMARY | 2025-01-15 22:24 | XMS_ITS | Encounter Summary ---
Author Organization [facility] Address [address] [facility] [place] [address] Care Team Providers Care Cadd Technician Name Role Phone Unavailable Primary Care Provider Unavailabl e Encounter Details Date Type Department Care Team (Late st Contact Info) Description 09/08/2019 Telephone [facility] [address] [facility] [address] [place] [address] Radha Palafox APRN-VAMSI [address] OF [facility] [place] [phone] Social History Tobacco Use Types Packs/Day Years Used Date Smoking Tobacco: Former Smokeless Tobacco: Never Alcohol Use Standard Drinks/Week Comments No 0 (1 standard drink = 0.6 oz pur e alcohol) Sex and Gender Information Value Date Recorded Sex Assigned at Not on file Legal Sex Male 6:27 AM FURNITURE ARRANGER Gender Identity Not on file Sexual Orientation [...] reluctantly let me connect him to scheduling ITURE ARRANGER * Telephone Encounter - Radha Palafox APRN-CNP - 09/08/2019 1:59 PM FURNITURE ARRANGER Please tell him that he needs to elevate his legs. I can not do anything for him over the phone. MELISA Diaz ITURE ARRANGER * Telephone Encounter - Mallory Flores RN [...] would like you to call him CB [phone] ITURE ARRANGER documented in this encounter Plan of Treatment Not on file documented as of this encounter Visit Diagnoses Not on filedocumented in this encounter
--- OUTSIDE RECORDS SUMMARY | 2025-01-15 22:24 | XMS_ITS | Clinical Summary ---
Author Organization [facility] Address [address] [place] [address] Care Team Providers Care Hazmat Technician Name Role Phone None, Provider MD [...] patient's age to complete this topic Insurance BOULDER Care Teams Hazmat Technician Relationship Specialty Start Date End Date None, Provider, PCP - General 12/31/19
--- OUTSIDE RECORDS SUMMARY | 2025-01-15 22:24 | XMS_ITS | Encounter Summary ---
Author Organization [employer] Address [address] [place] [address] Care Team Providers Care Button Spindler Name Role Phone Howard Trinidad MD Primary Care Provider Un available Encounter Details Date Type Department Care Team (Late st Contact Info) Description 03/17/2003 Outpatient Historical [facility] Venus Olivia MD [address] [place] [phone] Er, Authorized P NO ADDRESS ON FILE DEPRESSIVE DISORDER NEC (Primary Dx) Social History Tobacco Use Types Packs/Day Years Used Date Smoking Tobacco: Never Assessed Sex and Gender Information Value Date Recorded Sex Assigned at Not on file Legal Sex Male 4:57 AM 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
--- OUTSIDE RECORDS SUMMARY | 2025-01-15 22:24 | XMS_ITS | Encounter Summary ---
Author Organization [facility] Address [address] [facility] [place] [address] Care Team Providers Care Cath Lab Technologist Name Role Phone Unavailable Primary Care Provider Unavailabl e Reason for Visit * Reason Onset Date Comments Med Question 10/18/2019 Med Question 10/19/2019 Order 10/20/2019 XRAY Follow-up 10/20/2019 Encounter Details Date Type Department Care Team (Late st Contact Info) Description 10/18/2019 Telephone [facility] [address] [facility] [address] [place] [address] Radha Palafox, DOPE DRY HOUSE OPERATOR-IMPORT EXPORT AGENT [address] OF [facility] [place] [phone] Med Question; Med Question; Order (XRAY); Follow-up Social History Tobacco Use Types Packs/Day Years Used Date Smoking Tobacco: Former Smokeless Tobacco: Never Alcohol Use Standard Drinks/Week Comments No 0 (1 standard drink = 0.6 oz pur e alcohol) Sex and Gender Information Value Date Recorded Sex Assigned at Not on file Legal Sex Male 6:27 AM HAND FOLDER Gender Identity Not on file Sexual Orientation Not on file documented as of this encounter Miscellaneous Notes * Telephone Encounter - Remedios Catalan LPN - 10/20/2019 2:05 PM HAND FOLDER Pt came to 207 window. Pt is demanding xrays be done before his appointment. Pt is demanding that the nurse call me about this. I came early to have this done. I thought you people were here to helppatients. I want this done before the appointment because I want the results now. FOLDER * Telephone Encounter - Lynne Mendes - 10/20/2019 1:47 PM CST Upon chart review, no new update message from HOME SCHOOL COORDINATOR Petrebekachen or xray order in system at this time. Outbound to pt to inform [place] called pt to inform of above update and pt verbalized understanding. Pt reports [facility] now[facility] is going to go to office to see if can get an order for an Xray and then go to the lab to get labs drawn. No further questions or concerns at this time. # [phone] (home) Routed to provider for further review Routed to [facility] Nurse Communication for further review FOLDER * Telephone Encounter - Lynne Mendes - 10/20/2019 12:35 PM CST Upon chart review, [place] checking for update from HOME SCHOOL COORDINATOR Petzchen to c/b pt. As of this time, no new update from HOME SCHOOL COORDINATOR Monalisachen. Will continue to monitor for update. FOLDER * Telephone Encounter - Lynne Mendes - 10/20/2019 10:54 AM CST Outbound to [facility] Venus - unable to reach Upon chart review, Liz Catalan forwarded message to VENTURA Palafox for review. FOLDER * Telephone Encounter - Lynne Mendes - 10/20/2019 9:54 AM CST Pt calling in b/c he is coming in to office today for OV w/ VENTURA Palafox @ 3:20pm and requesting an xray for kidney/left sided pain. Pt reports forgot to ask HOME SCHOOL COORDINATOR Vivienne yesterday during phone conversation for xray [...] than 20min w/ the doctor . CB# [phone] (home) Routed to provider for further review HIGH PRIORITY FOLDER * Telephone Encounter - Radha Palafox APRN-CNP - 10/19/2019 1:18 PM HAND FOLDER Phone call--multiple vague complaints of not feeling [...] he will keep appt tomorrow. MELISA Diaz FOLDER * Telephone Encounter - Jovan Grewal - [...] with the provider today, call back number [phone] provided Message routed to provider FOLDER * Telephone Encounter - Mallory Flores RN [...] like this he had to take xanax. [phone] FOLDER documented in this encounter Plan of Treatment Not on file documented as of this encounter Visit Diagnoses Not on filedocumented in this encounter
--- OUTSIDE RECORDS SUMMARY | 2025-01-15 22:24 | XMS_ITS | Clinical Summary ---
Author Organization [facility] Address [address] [place] [address] Care Team Providers Care Button Tacker Name Role Phone Unavailable Primary Care Provider Unavailabl e Source Comments [facility],non-owned Affiliates and Associated Physician Practices is amultiple site organization consisting of ambulatory clinics and hospital sitesin [place], [place], [place] and [place]. This disclosure is being madepursuant to the Care Everywhere program and may not contain all informatio navailable regarding this patient. Last updated 18.[facility] Allergies Active Allergy Reactions Criticality Noted Date [...] fluticasone propionate (FLONASE) 50 MCG/ACT nasal spray Hyampom 2 sprays into each nostril once daily [...] Active ipratropium (ATROVENT) 0.06 % nasal spray Hyampom 2 sprays into each nostril 3 times [...] psychiatric, April 01, [facility] [place]. Microcytic anemia 07/02/2015 SOB (shortness of breath) [...] on file Legal Sex Male 6:27 AM CASTING PLUG ASSEMBLER Gender Identity Not on file Sexual [...] URINE RANDOM PANEL Routine 10/20/2019 2:41 PM CASTING PLUG ASSEMBLER Type 2 diabetes mellitus without complication, without long-term current use of insulin COMPREHENSIVE METABOLIC PANEL Routine 10/20/2019 2:41 PM CASTING PLUG ASSEMBLER Type 2 diabetes mellitus without complication, without long-term current use of insulin Obesity with serious comorbidity, unspecified classification, unspecified obesity type HEPATITIS C AB W RFLX VERIFICATION Routine 10/20/2019 2:41 PM CASTING PLUG ASSEMBLER Type 2 diabetes mellitus without complication, without long-term current use of insulin Need for hepatitis C screening test HEMOGLOBIN A1C - POINT OF CARE (AMB) [facility] Routine 08/01/2019 Type 2 diabetes mellitus without complication, without long-term current use of insulin from Last 3 Months or Most Recently Relevant to Health Maintenance Results * HEPATITIS C AB W RFLX VERIFICATION (10/20/2019 2:41 PM CASTING PLUG ASSEMBLER) Hepatitis C Antibody <0.1 0.0 - 0.9 s/co ratio 10/21/2019 8:18 AM CASTING PLUG ASSEMBLER [facility] ([facility]) Blood BLOOD SPECIMEN / Unknown Lab Venipuncture / Unknown 10/20/2019 2:41 PM CASTING PLUG ASSEMBLER 10/20/2019 3:01 PM CASTING PLUG ASSEMBLER Narrative [facility] ([facility]) - 10/21/2019 8:18 AM CASTING PLUG ASSEMBLER [facility]formed at: [facility] [address] [place], [place] [id number] Keeler Polygraph Operator: Carlos Woods PhD, Phone: [phone] us Radha Palafox RECORDING STUDIO INTERN-[facility] - CHEMISTRY ORD ERABLES Final Result [facility] ([facility]) [address] [place] [address] * (ABNORMAL) MICROALB/CREAT RATIO URINE RANDOM PANEL (10/20/2019 2:41 PM CASTING PLUG ASSEMBLER) Albumin Random Urine 65.0 Not Established mcg/mL 10/20/2019 4:57 PM [facility] Creatinine Urine 143 Not Established mg/dL 10/20/2019 4:57 PM [facility] Comment: Result obtained by dilution. Urine Albumin/Creati nine Ratio 45(H) <30 mg/g 10/20/2019 4:57 PM [facility] Urine URINE SPECIMEN OBTAINED BY CLEAN CATCH PROCEDURE / Unknown Collection / Unknown 10/20/2019 2:41 PM CASTING PLUG ASSEMBLER 10/20/2019 3:01 PM CASTING PLUG ASSEMBLER Radha Palafox RECORDING STUDIO INTERN[facility] - URINE CUSTOM SHOP WORKER RY ORDERABLES Final Result Performing Organization Address City/State/[facility] Co de Phone Number [address] [phone] * (ABNORMAL) COMPREHENSIVE METABOLIC PANEL (10/20/2019 2:41 PM CASTING PLUG ASSEMBLER) BUN 11 7 - 26 mg/dL 10/20/2019 [...] Lab Venipuncture / Unknown 10/20/2019 2:41 PM CASTING PLUG ASSEMBLER 10/20/2019 3:01 PM CASTING PLUG ASSEMBLER Result [facility] Radha Palafox RECORDING STUDIO INTERN-[facility] - CHEMISTRY ORD ERABLES Final Result Performing Organization Address [facility]/State/[facility] Co de Phone Number [facility] [address] [place] [address] * HEMOGLOBIN A1C - POINT OF CARE (AMB) U (08/01/2019) Hemoglobin A1c POCT 7.5 BLOOD SPECIMEN / Unknown 08/01/2019 Radha Palafox RECORDING STUDIO INTERN-[facility] - POINT OF CARE ORDERABLES Final Result from Last 3 Months or Most Recently Relevant to Health Maintenance Insurance [facility] [address] [id number]
--- OUTSIDE RECORDS SUMMARY | 2025-01-15 22:24 | XMS_ITS | Encounter Summary ---
Author Organization [facility] Care Team Providers Care Student Specialist Name Role Phone No, Physician Primary Care Provider [phone] Cata Clifton NP Primary Care Provider [phone] No, Physician Primary Care Provider [phone] Miscellaneous, Not In File Primary Care Provider Unavailable Jagdeep Sanford DO Primary Care Provider [phone] Miscellaneous, Not In File Unavailable Unava Charanjit Wilburn MD Primary Care Provider [phone] Carlos Gamboa MD Primary Care Provid er Unknown, Notinfile Primary Care Provider Unavail able No, Physician Primary Care Provider [phone] Unknown, Notinfile Primary Care Provider Unavail able No, Physician Primary Care Provider [phone] Unknown, Notinfile Primary Care Provider Unavail able Adin Lino MD Primary Care Provider + Unknown, Notinfile Primary Care Provider Unavail able Encounter Details Date Type Department Care Team (Latest Contact Info) Description 06/23/2018 Orders Only [facility] CLINCONV ProviderRachael MD [address] [place] [address] Social History Tobacco Use Types Packs/Day Years Used Date Smoking Tobacco: Former Smokeless Tobacco: Never Alcohol Use Standard Drinks/Week Comments No 0 (1 standard drink = 0.6 oz pur e alcohol) Sex and Gender Information Value Date Recorded Sex Assigned at Not on file Legal Sex Male 1:40 AM GAS ADJUSTER Gender Identity Not on file Sexual [...] COVID: Suspected 10/11/2023 10/11/2023 10/11/2023 5:30 PM GAS ADJUSTER COVID: Suspected 10/22/2024 10/22/2024 10/22/2024 5:53 PM GAS ADJUSTER Influenza, adult 10/22/2024 10/22/2024 10/29/2024 3:05 AM GAS ADJUSTER documented as of this encounter Care Teams Student Specialist Relationship Specialty Start Date End Date No, Physician PCP - General 09/15/17 03/16/19 Cata Clifton NP PCP - General 03/17/19 11/04/19 No, Physician PCP - General 11/05/19 11/11/19 Miscellaneous, Not In File PCP - General 11/12/19 0 Jagdeep Sanford DO [address] [place] [address] PCP - General Family Medicine 11/16/19 01/20/20 Charanjit Sheffield MD [address] [place] [address] PCP - General 01/21/20 09/29/20 Carlos Gamboa MD [address] [place] [address] PCP - General Family Medicine 09/30/20 05/07/21 Unknown, Notinfile PCP - General 05/08/21 11/26/21 No, Physician PCP - General 11/27/21 01/13/23 Unknown, Notinfile PCP - General 01/14/23 01/17/24 No, Physician PCP - General 01/18/24 04/21/24 Unknown, Notinfile PCP - General 04/22/24 07/30/24 Adin Lino MD [address] [place] [address] PCP - General Internal Medicine 07/31/24 07/31/24 Unknown, Notinfile PCP - General 08/01/24 Miscellaneous, Not In File 11/16/19 documented as of this encounter
--- OUTSIDE RECORDS SUMMARY | 2025-01-15 22:24 | XMS_ITS | Encounter Summary ---
Author Organization [employer] Address [address] [place] [address] Care Team Providers Care Middle School French Teacher Name Role Phone Howard Trinidad MD Primary Care Provider Un available Encounter Details Date Type Department Care Team (Late st Contact Info) Description 07/01/2006 Outpatient Historical [facility] Support Serv. (Adt Cardiology-[facility]) [address] [place] [address] Yash Bella MD Social History Tobacco Use Types Packs/Day Years Used Date Smoking Tobacco: Never Assessed Sex and Gender Information Value Date Recorded Sex Assigned at Not on file Legal Sex Male 4:57 AM EMPLOYEE PLACEMENT SPECIALIST Gender Identity Not on file Sexual Orientation Not on file documented as of this encounter Plan of Treatment Not on file documented as of this encounter Visit Diagnoses Not on filedocumented in this encounter Care Teams Middle [employer] French Teacher Relationship Specialty Start Date End Date Howard Trinidad MD PCP - General Family Practice 01/25/16 01/26/16 documented as of this encounter
--- OUTSIDE RECORDS SUMMARY | 2025-01-15 22:24 | XMS_ITS | Encounter Summary ---
Author Organization [employer] Address [address] [place] [address] Care Team Providers Care Wrecker Operator Name Role Phone Howard Trinidad MD [...] on file Legal Sex Male 4:57 AM INSHORE UNDERSEA WARFARE OFFICER Gender Identity Not on file Sexual Orientation Not on file documented as of this encounter Plan of Treatment Not on file documented as of this encounter Visit Diagnoses Diagnosis Other general symptoms(780.99)- Primary Other general symptoms documented in this encounter Care Teams Wrecker Operator Relationship Specialty Start Date End Date Howard Trinidad MD PCP - General Family Practice 01/25/16 01/26/16 documented as of this encounter
--- OUTSIDE RECORDS SUMMARY | 2025-01-15 22:24 | XMS_ITS | Clinical Summary ---
Author Organization [facility] Administrative Offices Address [address] [place] [address] Care Team Providers Care Regional Marketing Director Name Role Phone Unavailable Primary Care [...] None 6 Active fluticasone (FLONASE) 50 mcg/spray [place], Suspension Administer 2 Sprays in each nostril [...] on file Legal Sex Male 4:57 AM SUPERVISOR PUMPING Gender Identity Not on file Sexual Orientation Not on file Occupation Industry Job Start Date Job End Date Not on file Not on file Not on file Not on file Not on file Not on file Not on file Not on file Last Filed Vital Signs Vital Sign Reading Time Taken Comments Blood Pressure 152/94 11/18/2019 7:07 AM SUPERVISOR PUMPING Pulse 66 11/18/2019 7:07 AM SUPERVISOR PUMPING Temperature 36.7 C (98.1 F) 11/18/2019 5:34 AM SUPERVISOR PUMPING Respiratory Rate 18 11/18/2019 7:07 AM SUPERVISOR PUMPING Oxygen Saturation 98% 11/18/2019 7:07 AM SUPERVISOR PUMPING Inhaled Oxygen Concentration - - Weight 120.2 kg (265 lb) 11/18/2019 5:34 AM SUPERVISOR PUMPING Height 188 cm (6' 2 ) 11/18/2019 5:34 AM SUPERVISOR PUMPING Body Mass Index 34.02 11/18/2019 5:34 AM SUPERVISOR PUMPING Plan of Treatment Health Maintenance Due Date [...] - 6.1 % 07/02/2015 5:25 PM CDT [facility] [employer] [facility] EST. AVG GLUCOSE, A1C 140 mg/dL 07/02/2015 5:25 PM CDT [facility] Blood Venipuncture - Floor Collect / Unknown 07/02/2015 2:10 AM CDT 07/02/2015 2:11 AM CDT Narrative [facility] - 07/02/2015 5:25 PM CDT Based on the ADAG study equation. us Iwona Arteaga APN CHEMISTRY ORDERABLES Final R esult [facility] CLIA# [id number] [address] [place] [address] from Last 3 Months or Most Recently Relevant to Health Maintenance Insurance MEDICAID Advance Directives For more information, please contact: [phone] * Full Code (Latest Code Status on File) Date Activated Date Inactivated Comments 07/02/2015 8:36 AM 07/02/2015 8:02 PM * Full Code Date Activated Date Inactivated Comments 08/28/2014 2:37 PM 08/28/2014 5:13 PM
--- OUTSIDE RECORDS SUMMARY | 2025-01-15 22:24 | XMS_ITS | Encounter Summary ---
Author Organization [facility] Address [address] [facility] [place] [address] Care Team Providers Care Taxi Cab Driver Name Role Phone Unavailable Primary Care Provider Unavailabl e Reason for Visit * Reason Onset Date Comments Blood Pressure 12/01/2019 Encounter Details Date Type Department Care Team (Late st Contact Info) Description 12/01/2019 Telephone [facility] General Internal Medicine [address] [facility] [address] [place] [address] Radha Palafox, CORE DRILL OPERATOR-CONCRETE JOURNEYMAN [address] DIV OF [facility] [place] [id number] Blood Pressure Social History Tobacco Use Types Packs/Day Years Used Date Smoking Tobacco: Former Smokeless Tobacco: Never Alcohol Use Standard Drinks/Week Comments No 0 (1 standard drink = 0.6 oz pur e alcohol) Sex and Gender Information Value Date Recorded Sex Assigned at Not on file Legal Sex Male 6:27 AM STAIN APPLICATOR Gender Identity Not on file Sexual Orientation Not on file documented as of this encounter Miscellaneous Notes * Telephone Encounter - Venus Powell RN - 12/01/2019 10:51 AM CDT Carlos Mcgee was transferred to ms. He is demanding to speak to someone [...] He would like additional medication sent to [facility] in [place], [place]. Mallory in the Call Center stated [...]
--- OUTSIDE RECORDS SUMMARY | 2025-01-15 22:24 | XMS_ITS | Encounter Summary ---
Author Organization [employer] Address [address] [place] [address] Care Team Providers Care Caving Guide Name Role Phone Howard Trinidad MD Primary Care Provider Un available Encounter Details Date Type Department Care Team (Late st Contact Info) Description 07/11/2008 Outpatient Historical [facility] [place], Authorized P NO ADDRESS ON FILE Ryland Virgen MD [address] [place] [id number] Social History Tobacco Use Types Packs/Day Years Used Date Smoking Tobacco: Never Assessed Sex and Gender Information Value Date Recorded Sex Assigned at Not on file Legal Sex Male 4:57 AM HYDRAULIC GOVERNOR ASSEMBLER Gender Identity Not on file Sexual Orientation Not on file documented as of this encounter Plan of Treatment Not on file documented as of this encounter Visit Diagnoses Not on filedocumented in this encounter Care Teams Caving Guide Relationship Specialty Start Date End Date Howard Trinidad MD PCP - General Family Practice 01/25/16 01/26/16 documented as of this encounter
--- OUTSIDE RECORDS SUMMARY | 2025-01-15 22:24 | XMS_ITS | Encounter Summary ---
Author Organization [employer] Address [address] [place] [address] Care Team Providers Care Circular Knife Machine Cutter Name Role Phone Howard Trinidad MD Primary Care Provider Un available Encounter Details Date Type Department Care Team (Late st Contact Info) Description 02/23/2007 Outpatient Historical [facility] Ian GauthierDO [id number] [place] [address] Er, Authorized P NO ADDRESS ON FILE Anxiety State, Unspecified (Primary Dx) Social History Tobacco Use Types Packs/Day Years Used Date Smoking Tobacco: Never Assessed Sex and Gender Information Value Date Recorded Sex Assigned at Not on file Legal Sex Male 4:57 AM PLASTERER MAINTENANCE Gender Identity Not on file Sexual Orientation Not on file documented as of this encounter Plan of Treatment Not on file documented as of this encounter Visit Diagnoses Diagnosis Anxiety state, unspecified- Primary documented in this encounter Care Teams Circular Knife Machine Cutter Relationship Specialty Start Date End Date Howard Trinidad MD PCP - General Family Practice 01/25/16 01/26/16 documented as of this encounter
--- OUTSIDE RECORDS SUMMARY | 2025-01-15 22:24 | XMS_ITS | Encounter Summary ---
Author Organization [employer] Address [address] [place] [address] Care Team Providers Care Director Operating Name Role Phone oHward Trinidad MD Primary Care Provider Un available Encounter Details Date Type Department Care Team (Late st Contact Info) Description 04/03/2004 Outpatient Historical [facility] Leticia Cotton [facility] [place] [address] [place], Authorized P NO ADDRESS ON FILE PANIC DISORDER (Primary Dx) Social History Tobacco Use Types Packs/Day Years Used Date Smoking Tobacco: Never Assessed Sex and Gender Information Value Date Recorded Sex Assigned at Not on file Legal Sex Male 4:57 AM DIE ENGRAVER Gender Identity Not on file Sexual Orientation Not on file documented as of this encounter Plan of Treatment Not on file documented as of this encounter Visit Diagnoses Diagnosis Panic disorder without agoraphobia- Primary documented in this encounter Care Teams Director Operating Relationship Specialty Start Date End Date Hwoard Trinidad MD PCP - General Family Practice 01/25/16 01/26/16 documented as of this encounter
--- OUTSIDE RECORDS SUMMARY | 2025-01-15 22:24 | XMS_ITS | Encounter Summary ---
Author Organization [employer] Address [address] [place] [address] Care Team Providers Care Accounting Methods Analyst Name Role Phone Howard Trinidad MD Primary Care Provider Un available Encounter Details Date Type Department Care Team (Late st Contact Info) Description 03/02/2005 Outpatient Historical [facility] Support Serv. (Adt Cardiology[facility]) [address] [place] [address] Vignesh Gurrola MD NO ADDRESS ON FILE Social History Tobacco Use Types Packs/Day Years Used Date Smoking Tobacco: Never Assessed Sex and Gender Information Value Date Recorded Sex Assigned at Not on file Legal Sex Male 4:57 AM PROPERTY ECONOMIST Gender Identity Not on file Sexual Orientation Not on file documented as of this encounter Plan of Treatment Not on file documented as of this encounter Visit Diagnoses Not on filedocumented in this encounter Care Teams Accounting Methods Analyst Relationship Specialty Start Date End Date Howard Trinidad MD PCP - General Family Practice 01/25/16 01/26/16 documented as of this encounter
--- OUTSIDE RECORDS SUMMARY | 2025-01-15 22:24 | XMS_ITS | Encounter Summary ---
Author Organization [facility] Address [address] [place] [address] Care Team Providers Care Wax Molder Name Role Phone Jagdeep Sanford DO Primary Care Provider [phone] Miscellaneous, Not In File Unavailable Unava ilable Charanjit Sheffield MD Primary Care Provider [phone] Carlos Gamboa MD Primary Care Provid er Unknown, Notinfile Primary Care Provider Unavail able No, Physician Primary Care Provider [phone] Unknown, Notinfile Primary Care Provider Unavail able No, Physician Primary Care Provider Unknown, Notinfile Primary Care Provider Unavail able Adin Lino MD Primary Care Provider + Unknown, Notinfile Primary Care Provider Unavail able Encounter Details Date Type Department Care Team (Late st Contact Info) Description 11/29/2019 Documentation [facility] Respiratory [address] [place] [address] Herbie Ramsey RRT Social History Tobacco Use [...] on file Legal Sex Male 1:40 AM BRAZER RESISTANCE Gender Identity Not on file Sexual Orientation Not on file COVID-19 Exposure Response Date Recorded In the last month, have you been in contact with someone who was confirmed or suspected to have Coronavirus / COVID-19? No / Unsure 11/28/2019 10:38 PM CDT documented as of this encounter Plan of Treatment Scheduled Procedures Name Priority Associated Diagnoses Date/Ti ms COLONOSCOPY Open Access Diverticulitis documented as of this encounter Visit Diagnoses Not on filedocumented in this encounter Additional Health Concerns Infection Onset Date Last Indicated Resolved Time COVID: Suspected 10/11/2023 10/11/2023 10/11/2023 5:30 PM BRAZER RESISTANCE COVID: Suspected 10/22/2024 10/22/2024 10/22/2024 5:53 PM BRAZER RESISTANCE Influenza, adult 10/22/2024 10/22/2024 10/29/2024 3:05 AM BRAZER RESISTANCE documented as of this encounter Care Teams Wax Molder Relationship Specialty Start Date End Date Jagdeep Sanford DO [address] [place] [id number] PCP - General Family Medicine 11/16/19 01/20/20 Charanjit Sheffield MD PCP - General 01/21/20 09/29/20 Carlos Gamboa MD [address] [place] [id number] PCP - General Family Medicine 09/30/20 05/07/21 Unknown, Notinfile PCP - General 05/08/21 11/26/21 No, Physician PCP - General 11/27/21 01/13/23 Unknown, Notinfile PCP - General 01/14/23 01/17/24 No, Physician PCP - General 01/18/24 04/21/24 Unknown, Notinfile PCP - General 04/22/24 07/30/24 Adin Lino MD [address] [place] [address] PCP - General Internal Medicine 07/31/24 07/31/24 Unknown, Notinfile PCP - General 08/01/24 Miscellaneous, Not In File 11/16/19 documented as of this encounter
--- OUTSIDE RECORDS SUMMARY | 2025-01-15 22:24 | XMS_ITS | CONTINUITY OF CARE DOCUMENT ---
Author Name christian gonzales Address Unknown Organization [facility] Address [address] [place] [address] [address] [place] [address] Phone [phone] Care Team Providers Care Tabulating Supervisor Name Role Phone Emily Garcia MD Unavailable [phone] Emily Garcia MD Unavailable [phone] PROBLEMS Condition Status Date Provider Notes Chest pain active Emily Garcia MD Diabetes, Type 2 active Emily Garcia MD Hyperlipidemia active Emily Garcia MD Hypertension active Emily Garcia MD Sleep apnea active Emily Garcia MD ENCOUNTERS Date Type Provider Location Encounter Diagnosis - In-person encounter Office Visit Emily Garcia MD [place] [facility] Chest painDiabetes, Type 2HyperlipidemiaHyp ertensionSleep apnea [...] High 3 cholesterol, serum 182 mg/dL [facility] [phone]/10/2 3 basophil count, absolute 0.0 x10E3/uL [employer] [...] Estab. 3 platelet count 208 X10E3/UL [employer] [phone]/10/2 3 red blood cell distribution width 17.6 [...] 3.5-5.2 3 sodium, serum 142 mmol/L [employer] [phone]/10/2 3 urea nitrogen/creatinine ratio, serum 10 [employer] [...] Payer name Policy type / Coverage type [place] red green party ID [employer] MEDICAID (2) Medicaid [id number] ADVANCE DIRECTIVES Name Date DISCUSSED - NO DECISION MADE TREATMENT PLAN Date Name Performer [id number],S, Cholesterol, Total 182 mg/dL 100-199 Triglycerides [H] 205 mg/dL 0-149 HDL Cholesterol [L] 21 mg/dL >39 ! VLDL Cholesterol Aristides 37 mg/dL 5-40 LDL Chol Calc (NIH) [H] 124 mg/dL 0-99 Recommend dieatary modifications, see if triglycerides imrpoves, may need to start fish oil. Emily Garcia MD [id number],S, Emily aiken MD [id number],C, n eeds to get w/u done a pparanetly had a cath done [address] [facility] a nd needs to get new /u will do nuclear sress test and echo July 16, 2021 nuclear was denied by insurance s o he had stress echo done but was suboptimal Emily Garcia MD [id number],C, n eeds sleep study done no recent w/u done Emily Garcia MD [id number],C, Cholesterol, Total 182 mg/dL 100-199 Triglycerides [H] 205 mg/dL 0-149 HDL Cholesterol [L] 21 mg/dL >39 ! VLDL Cholesterol Aristides 37 mg/dL 5-40 LDL Chol Calc (NIH) [H] 124 mg/dL 0-99 Recommend dieatary modifications, see if triglycerides imrpoves, may need to start fish oil. Emily Garcia MD [id number],S, Emily aiken MD [id number],C, n eeds to get w/u done a pparanetly had a cath done [address] [facility] a nd needs to get new /u will do nuclear sress test and echo Emily Garcia MD [id number],C, h as angioedema not able to get amelia July 07, 2021 A 1C was 7.1,needs PCP and endcorine eval Emily Garcia MD [id number],C,n eeds sleep study done no recent w/u done Emily Garcia MD [id number],C,needs blood w ork Emily Garcia MD [id number],S,o n atenolol B P today: 152/80 Emily Garcia MD [id number],C,h as angioedema not able to get amelia Emily Garcia MD [id number],C,n eeds to get w/u done a pparanetly had a cath done [address] [facility] a nd needs to get [...] a cath done [address] [facility] a nd needs to get [...] Aristides 37 mg/dL 5-40 LDL Chol Calc ([facility]) [H] 124 mg/dL 0-99 Recommend dieatary modifications, see if triglycerides imrpoves, may need to start fish oil. Emily Garcia MD Telehealth Emily Garcia MD Telehealth: n eeds to get w/u done a pparanetly had a cath done [address] [facility] a nd needs to get [...] a cath done [address] [facility] a nd needs to get [...]
--- OUTSIDE RECORDS SUMMARY | 2025-01-15 22:24 | XMS_ITS | Clinical Summary ---
Author Organization [facility] [address] Address [address] [place] [address] Care Team Providers Care Oxyacetylene Welder Name Role Phone Miscellaneous, Not In File [...] pain and frequency. -See either PCP or cvor nurse to manage diabetes. -I told patient that if he fails this, we may need to look at further testing for penile pain. Patient verbalized understanding. OAB (overactive bladder) 11/09/2020 Assessment & Plan (11/13/2020 6:03 PM REIMBURSEMENT SPECIALIST): -Symptoms are suggestive of OAB. Prostate size [...] 11/09/2020 Assessment & Plan (11/09/2020 5:21 PM REIMBURSEMENT SPECIALIST): -Patient has history of diverticulitis, benign tumor [...] appointment. Assessment & Plan (11/09/2020 5:20 PM REIMBURSEMENT SPECIALIST): -CT showing non-obstructing stones in kidney. Patient [...] 0 Assessment & Plan (11/16/2019 4:14 PM REIMBURSEMENT SPECIALIST): Old psychiatrist, Dr Easley, in [place]. Rx'ed [...] 11/16/2019 Assessment & Plan (11/16/2019 4:11 PM REIMBURSEMENT SPECIALIST): Not taking meds as prescribed. Pt asked to leave before A1C could be tested. Severe obesity (BMI 35.0-35.9 with comorbidity) 11/16/2019 Assessment & Plan (11/16/2019 4:14 PM REIMBURSEMENT SPECIALIST): Body mass index is 35.12 kg/m . Unable to counseling services manager him given that he was escorted out. [...] (03/12/2017): Scheduled appointment with psychiatric, April 01, [facility] in [place]. 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 Wasn't able to see many doctors in the area because he had been fired. Encounters Date Type Department Care Team Description 10/24/2024 Telephone [facility] Gastroenterology at [address] [place] [address] Jd Mayes MD 10/22/2024 6:32 PM REIMBURSEMENT SPECIALIST - 10/22/2024 8:51 PM REIMBURSEMENT SPECIALIST Emergency [facility] Emergency Department [address] [place] [address] Influenza A (Primary Dx); Acute [...] on file Legal Sex Male 1:40 AM REIMBURSEMENT SPECIALIST Gender Identity Not on file Sexual Orientation Not on file Obstetrics History Last Filed Vital Signs Vital Sign Reading Time Taken Comments Blood Pressure 143/89 10/22/2024 8:25 PM REIMBURSEMENT SPECIALIST Pulse 73 10/22/2024 8:25 PM REIMBURSEMENT SPECIALIST Temperature 37.2 C (99 F) 10/22/2024 4:46 PM REIMBURSEMENT SPECIALIST Respiratory Rate 16 10/22/2024 8:25 PM REIMBURSEMENT SPECIALIST Oxygen Saturation 99% 10/22/2024 8:25 PM REIMBURSEMENT SPECIALIST Inhaled Oxygen Concentration - - Weight 120.1 kg (264 lb 12.4 oz) 10/22/2024 4:46 PM REIMBURSEMENT SPECIALIST Height 188 cm (6' 2 ) 10/22/2024 4:46 PM REIMBURSEMENT SPECIALIST Body Mass Index 33.99 10/22/2024 4:46 PM REIMBURSEMENT SPECIALIST Plan of Treatment Scheduled Procedures Name Priority [...] LATERAL 2 VIEWS ED 10/22/2024 5:05 PM REIMBURSEMENT SPECIALIST URINALYSIS, MICROSCOPIC ONLY STAT 10/22/2024 5:01 PM REIMBURSEMENT SPECIALIST URINALYSIS AND REFLEX TO MICROSCOPIC AND CULTURE STAT 10/22/2024 5:01 PM REIMBURSEMENT SPECIALIST INFLUENZA A/B, RSV, AND COVID-19 PCR STAT 10/22/2024 4:59 PM REIMBURSEMENT SPECIALIST EGFR STAT 10/13/2024 10:11 AM REIMBURSEMENT SPECIALIST HEMOGLOBIN A1C Routine 01/22/2020 9:58 AM CDT LIPID PANEL Routine 01/22/2020 9:58 AM CDT COLONOSCOPY REPORT 07/01/2017 from Last 3 Months or Most Recently Relevant to Health Maintenance Results * XR Chest PA Lateral 2 Views (10/22/2024 5:05 PM REIMBURSEMENT SPECIALIST) Anatomical Region Laterality Modality Body, Chest N/A Computed Radiogr aphy 10/22/2024 5:38 PM REIMBURSEMENT SPECIALIST Narrative 10/22/2024 5:38 PM REIMBURSEMENT SPECIALIST EXAM DESCRIPTION: XR CHEST PA LATERAL 2 [...] Dave Kat M.D. KT: SARTHAK Report ID: [id number] Reading Location: [id number] Procedure Note Dave Kat MD - 10/22/2024 [...] Dave Kat M.D. KT: KT Report ID: [id number] Reading Location: [place] [address] us Jhoana Potts NP IMG XR PROCEDURES Final Resul t * (ABNORMAL) Urinalysis reflex to microscopic and culture Urine, clean voided (10/22/2024 5:01 PM REIMBURSEMENT SPECIALIST) Color, ur Yellow Yellow Comment:Testing performed by : [address] [address] Clarity, ur Clear Clear VAL Comment:Testing performed by : [address] [address] Specific gravity, ur 1.009 1.003 - 1.030 VAL Comment:Testing performed by : [address] [address] pH, urine 6.5 VAL Comment: Interpretive Data U rine pH is affected by diet, medications, systemic acid-base disturbances, and renal tubular function. pH may affect urinary stone formation. For example, urine pH below 6.0 may help reduce the tendency for calcium phosphate stones and pH greater than 6.0 may reduce the tendency for uric acid stone formation. Source: [employer] Current Interpretive Data was last revised on 2017 Testing performed by: [address] [address] Protein, ur ql Trace(A) Negative VAL Comment:Testing performed by : [address] [address] Glucose, ur ql Negative Negative VAL Comment:Testing performed by : [address] [address] Ketones, ur Negative Negative VAL MULLER Comment:Testing performed by : [facility], [address] [place] [address], [place]., [address] Bilirubin, ur Negative Negative VAL MULLER Comment:Testing performed by : [address], [place]., [address] Blood, ur Negative Negative VAL MULLER Comment:Testing performed by : [address], [place]., [address] Urobilinogen, ur <2.0 <2.0 mg/dL VAL MULLER Comment:Testing performed by : [address], [place]., [address] Nitrite, ur Negative Negative VAL MULLER Comment:Testing performed by : [address], [place]., [address] Leukocyte esterase, ur Negative Negative VAL MULLER Comment:Testing performed by : [address], [place]., [address] UA reflex comment Reflex to microscopic UA will be performed. VAL MULLER Comment:Testing performed by : [address], [place]., [address] Urine, clean voided 10/22/2024 5:01 PM REIMBURSEMENT SPECIALIST 10/22/2024 5:06 PM REIMBURSEMENT SPECIALIST Jhoana Potts NP LAB MICROBIOLOGY - GENERAL OR DERABLES Final Result VAL [address] [facility] Department [place] [address] * Urinalysis, microscopic only (10/22/2024 5:01 PM REIMBURSEMENT SPECIALIST) WBC, ur 0-5 0 - 5 /HPF Comment:Testing performed by : [address], [place]., [address] RBC, ur 0-2 0 - 2 /HPF VAL MULLER Comment:Testing performed by : [address] [address] Culture Reflex Comment Reflex conditions for urine culture (WBC >10) not met. VAL MULLER Comment:Testing performed by : [address], [place]., [address] Urine, clean voided 10/22/2024 5:01 PM REIMBURSEMENT SPECIALIST 10/22/2024 5:06 PM REIMBURSEMENT SPECIALIST Jhoana Potts NP LAB URINE ORDERABLES Final Re sult Performing Organization Address [facility]/State/ZIP Co de Phone Number VAL [address] [facility] Department of Laboratories [place], [place] [id number] * (ABNORMAL) Influenza A/B, RSV, and COVID-19 PCR Nasopharyngeal (10/22/2024 4:59 PM REIMBURSEMENT SPECIALIST) COVID-19 RNA Negative Negative Comment:Testing performed by : [address] [address] Influenza A RNA Positive(A) Negative [facility] Comment:Testing performed by : [address] [address] Influenza B RNA Negative Negative [facility] Comment:Testing performed by : [address] [address] RSV RNA Negative Negative [facility] Comment: Interpretive data: Testing performed by [facility]. This test is performed using the [employer] Xpert Xpress CoV-2/Flu/RSV plus assay. This is a multiplex, real-time reverse transcriptase PCR assay intended for the qualitative detection of nucleic acid from SARS-CoV-2, influenza A, influenza B, and respiratory syncytial virus. This assay has been cleared by the [place] Food and Drug administration. The performance characteristics have been verified by the [facility]. Results must be considered in the clinical context, and a negative result does not rule out infection. Interpretive Data last revised 2023 Testing performed by: [address] [address] Nasopharyngeal 10/22/2024 4: 59 PM REIMBURSEMENT SPECIALIST 10/22/2024 5:05 PM REIMBURSEMENT SPECIALIST Narrative VAL - 10/22/2024 5:52 PM REIMBURSEMENT SPECIALIST Is the Patient experiencing symptoms consistent with COVID?->Yes us Jhoana Potts NP LAB MICROBIOLOGY - GENERAL OR DERABLES Final Result Performing Organization Address City/[facility] Co de Phone Number VAL [address] [facility] Department [place] [address] * eGFR (10/13/2024 10:11 AM REIMBURSEMENT SPECIALIST) eGFR >90 >=60 mL/min/1. 73 m2 Comment: [...] was last reviewed 2021. Testing performed by: [facility], [address] [place] [address]., [address] Blood 10/13/2024 10:1 1 AM REIMBURSEMENT SPECIALIST 10/13/2024 10:24 AM REIMBURSEMENT SPECIALIST Miguel Stokes DO LAB BLOOD ORDERABLES Final Result Performing Organization Address [facility] Co de Phone Number VAL [address] [facility] [place] [address] * (ABNORMAL) Hemoglobin A1c (01/22/2020 9:58 AM CDT) Hemoglobin A1c % 6.2(H) 4.0 - 5.6 % [facility] Comment: ADA 2016 GUIDELINES: Initial Diagnostic Criteria HbA1c Result: Interpretation: <5.7% Normal 5.7-6.4% At risk for diabetes mellitus >=6.5% Consistent with diabetes mellitus Diabetes monitoring Target value (ADA Recommended) <7% 01/22/2020 9:58 AM CDT 01/22/2020 10:14 AM CDT Narrative Resulting Agency Comment CLI us Charanjit Sheffield MD LAB BLOOD ORDERABLES Final Result Performing Organization Address [facility] Co de Phone Number [address] [phone] * (ABNORMAL) Lipid panel (01/22/2020 9:58 AM CDT) Triglycerides 173(H) 0 - 149 mg/dL [facility] Comment: National Lipid Association/NCEP Guidelines: Normal < 150 mg/dL Borderline high 150-199 mg/dL High 200-499 mg/dL Very High >=500 mg/dL Cholesterol 152 0 - 199 mg/dL [facility] Comment: National Lipid Association/NCEP Guidelines: Desirable < 200 mg/dL Borderline high: 200-239 mg/dL High Risk: >=240 mg/dL HDL Cholesterol 22 mg/dL [facility] Comment: Reference Ranges: Males: >=40 mg/dL Females: >=50 mg/dL LDL Cholesterol, Calc 95 0 - 129 mg/dL [facility] Comment: National Lipid Association/NCEP Guidelines: Optimal < 100 mg/dL Near Optimal 100-129 mg/dL Borderline high 130-159 mg/dL High >=160 mg/dL Cholesterol/HDL Ratio 6.[address] [facility] Comment: Optimal < 3.5:1 High > 5:1 01/22/2020 9:58 AM CDT 01/22/2020 10:14 AM CDT Narrative Resulting Agency Comment CLI us Charanjit Sheffield MD LAB BLOOD ORDERABLES Final Result Performing Organization Address City/[facility]/ZIP Co de Phone Number [address] [phone] * COLONOSCOPY REPORT (07/01/2017) Anatomical Region Laterality Modality Other us Provider Scanning GI PROCEDURE ORDERABLES Edited Result - Final from Last 3 Months or Most Recently Relevant to Health Maintenance Insurance Care Teams Oxyacetylene Welder Relationship Specialty Start Date End Date Unknown, Notinfile PCP - General 08/01/24 Miscellaneous, Not In File 11/16/19
--- OUTSIDE RECORDS SUMMARY | 2025-01-15 22:24 | XMS_ITS | Encounter Summary ---
Author Organization [email or web address] Address [address] [place] [address] Care Team Providers Care Market Reporter Name Role Phone Howard Trinidad MD Primary [...] on file Legal Sex Male 4:57 AM CLINICAL RN Gender Identity Not on file Sexual Orientation Not on file documented as of this encounter Plan of Treatment Not on file documented as of this encounter Visit Diagnoses Diagnosis Unspecified sinusitis (chronic)- Primary documented in this encounter Care Teams Market Reporter Relationship Specialty Start Date End Date Howard Trinidad MD PCP - General Family Practice 01/25/16 01/26/16 documented as of this encounter
--- OUTSIDE RECORDS SUMMARY | 2025-01-15 22:24 | XMS_ITS | Encounter Summary ---
Author Organization [employer] Address [address] [place] [address] Care Team Providers Care Trimming Cutter Machine Name Role Phone Howard Trinidad MD Primary [...] on file Legal Sex Male 4:57 AM HEADRIG SAWYER Gender Identity Not on file Sexual [...] did not get a call back. 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
--- OUTSIDE RECORDS SUMMARY | 2025-01-15 22:24 | XMS_ITS | Encounter Summary ---
Author Organization [employer] Address 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 He indicated he had called PCP office [...] on filedocumented in this encounter Care Teams Screen Print Operator Relationship Specialty Start Date End Date Howard Trinidad MD PCP - General Family Practice 01/25/16 01/26/16 documented as of this encounter
--- OUTSIDE RECORDS SUMMARY | 2025-01-15 22:24 | XMS_ITS | Encounter Summary ---
Author Organization [employer] Address [address] [place] [address] Care Team Providers Care Orthodontic Laboratory Technician Name Role Phone Howard Trinidad MD [...] on file Legal Sex Male 4:57 AM PERSONNEL MANAGER Gender Identity Not on file Sexual Orientation Not on file documented as of this encounter Plan of Treatment Not on file documented as of this encounter Visit Diagnoses Diagnosis Pain in limb- Primary documented in this encounter Care Teams Orthodontic Laboratory Technician Relationship Specialty Start Date End Date Howard Trinidad MD PCP - General Family Practice 01/25/16 01/26/16 documented as of this encounter
--- OUTSIDE RECORDS SUMMARY | 2025-01-15 22:24 | XMS_ITS | Encounter Summary ---
Author Organization [employer] Address [address] [place] [address] Care Team Providers Care Chainstitch Felled Seam Operator Name Role Phone Howard Trinidad MD Primary Care Provider Un available Encounter Details Date Type Department Care Team (Late st Contact Info) Description 06/03/2008 Outpatient Historical [facility] [place], Authorized P NO ADDRESS ON FILE Jose Soto MD [facility] [place] [address] Social History Tobacco Use Types Packs/Day Years Used Date Smoking Tobacco: Never Assessed Sex and Gender Information Value Date Recorded Sex Assigned at Not on file Legal Sex Male 4:57 AM RETAIL COVERAGE MERCHANDISER Gender Identity Not on file Sexual Orientation Not on file documented as of this encounter Plan of Treatment Not on file documented as of this encounter Visit Diagnoses Not on filedocumented in this encounter Care Teams Chainstitch Felled Seam Operator Relationship Specialty Start Date End Date Howard Trinidad MD PCP - General Family Practice 01/25/16 01/26/16 documented as of this encounter
--- OUTSIDE RECORDS SUMMARY | 2025-01-15 22:24 | XMS_ITS | Encounter Summary ---
Author Organization [facility] Address [address] [facility] [place] [address] Care Team Providers Care Aerophysicist Name Role Phone Unavailable Primary Care Provider Unavailabl e Reason for Visit * Reason Onset Date Comments FLU 11/27/2019 Encounter Details Date Type Department Care Team (Late st Contact Info) Description 11/27/2019 Telephone [facility] Medicine [address] [place] [address] Radha Palafox, YOUTH TEACHER-ROPE COILING MACHINE OPERATOR [address] [facility] [address] OF [facility] [place] [address] FLU Social History Tobacco Use Types Packs/Day Years Used Date Smoking Tobacco: Former Smokeless Tobacco: Never Alcohol Use Standard Drinks/Week Comments No 0 (1 standard drink = 0.6 oz pur e alcohol) Sex and Gender Information Value Date Recorded Sex Assigned at Not on file Legal Sex Male 6:27 AM STATION INSTALLATION SUPERVISOR Gender Identity Not on file Sexual Orientation Not on file documented as of this encounter Miscellaneous Notes * Telephone Encounter - Mallory Flores RN - 11/27/2019 1:21 PM CDT Caller transferred to triage line from fern picker and call got disconnected. Per fern picker caller thinks he has coronavirus Attempted to call back and left vm. documented in this encounter Plan of Treatment Not on file documented as of this encounter Visit Diagnoses Not on filedocumented in this encounter
--- OUTSIDE RECORDS SUMMARY | 2025-01-15 22:24 | XMS_ITS | Encounter Summary ---
Author Organization [facility] Health Address [address] [place] [address] Care Team Providers Care Golf Sales Associate Name Role Phone Unavailable Primary Care Provider Unavailabl e Reason for Visit * Reason Onset Date Comments Order 08/02/2019 Encounter Details Date Type Department Care Team (Late st Contact Info) Description 08/02/2019 Telephone [facility] Medicine [address] [place] [address] Radha Palafox, MERCURY CRACKING TESTER-MACHINIST GENERAL [address] [facility] [place] [id number] Order Social History Tobacco Use Types Packs/Day Years Used Date Smoking Tobacco: Former Smokeless Tobacco: Never Alcohol Use Standard Drinks/Week Comments No 0 (1 standard drink = 0.6 oz pur e alcohol) Sex and Gender Information Value Date Recorded Sex Assigned at Not on file Legal Sex Male 6:27 AM LIVESTOCK HAULIER Gender Identity Not on file Sexual Orientation [...] Sleep study ordered and referral to GI. STOCK HAULIER documented in this encounter Plan of Treatment Not on file documented as of this encounter Visit Diagnoses Diagnosis Loud snoring- Primary Class 3 severe obesity with serious comorbidity in adult, unspecified BMI, unspecified obesity type Sleep apnea, unspecified type documented in this encounter
--- OUTSIDE RECORDS SUMMARY | 2025-01-15 22:24 | XMS_ITS | Referral Summary ---
Author Organization [facility] [address] [place] [address] Care Team Providers Care Liability Claims Manager Name Role Phone Miscellaneous, Not In File Unavailable Unava ilable Unknown, Notinfile Primary Care Provider Unavail able Encounters Date Type Department Care Team Description 10/24/2024 Telephone [facility] Gastroenterology at [address] [place] [address] Jd Mayes MD 10/22/2024 6:32 PM PASSENGER RELATIONS REPRESENTATIVE - 10/22/2024 8:[address] [facility] Emergency [facility] Emergency Department [address] [place] [address] Influenza A (Primary Dx); Acute [...] pain and frequency. -See either PCP or seo strategist to manage diabetes. -I told patient that if he fails this, we may need to look at further testing for penile pain. Patient verbalized understanding. OAB (overactive bladder) 11/09/2020 Assessment & Plan (11/13/2020 6:03 PM PASSENGER RELATIONS REPRESENTATIVE): -Symptoms are suggestive of OAB. Prostate size [...] 11/09/2020 Assessment & Plan (11/09/2020 5:21 PM PASSENGER RELATIONS REPRESENTATIVE): -Patient has history of diverticulitis, benign tumor [...] appointment. Assessment & Plan (11/09/2020 5:20 PM PASSENGER RELATIONS REPRESENTATIVE): -CT showing non-obstructing stones in kidney. Patient [...] 0 Assessment & Plan (11/16/2019 4:14 PM PASSENGER RELATIONS REPRESENTATIVE): Old psychiatrist, Dr Easley, in [place]. Rx'ed [...] 11/16/2019 Assessment & Plan (11/16/2019 4:11 PM PASSENGER RELATIONS REPRESENTATIVE): Not taking meds as prescribed. Pt asked to leave before A1C could be tested. Severe obesity (BMI 35.0-35.9 with comorbidity) 11/16/2019 Assessment & Plan (11/16/2019 4:14 PM PASSENGER RELATIONS REPRESENTATIVE): Body mass index is 35.12 kg/m . Unable to recreational counselor him given that he was escorted [...] (03/12/2017): Scheduled appointment with psychiatric, April 01, [facility] in [place]. Anxiety 03/12/2017 Obesity (BMI 30-39.9) 03/12/2017 Benzodiazepine [...] 11/09/2020 Assessment & Plan (11/16/2019 3:59 PM PASSENGER RELATIONS REPRESENTATIVE): Severe with h/o panic attacks with xanax [...] research on prior controlled substance use on [facility]. While I was out of the [...] he wasn't able to see patients at [facility] because he got fired from [...] on file Legal Sex Male 1:40 AM PASSENGER RELATIONS REPRESENTATIVE Gender Identity Not on file Sexual Orientation Not on file Last Filed Vital Signs Vital Sign Reading Time Taken Comments Blood Pressure 143/89 10/22/2024 8:25 PM PASSENGER RELATIONS REPRESENTATIVE Pulse 73 10/22/2024 8:25 PM PASSENGER RELATIONS REPRESENTATIVE Temperature 37.2 C (99 F) 10/22/2024 4:46 PM PASSENGER RELATIONS REPRESENTATIVE Respiratory Rate 16 10/22/2024 8:25 PM PASSENGER RELATIONS REPRESENTATIVE Oxygen Saturation 99% 10/22/2024 8:25 PM PASSENGER RELATIONS REPRESENTATIVE Inhaled Oxygen Concentration - - Weight 120.1 kg (264 lb 12.4 oz) 10/22/2024 4:46 PM PASSENGER RELATIONS REPRESENTATIVE Height 188 cm (6' 2 ) 10/22/2024 4:46 PM PASSENGER RELATIONS REPRESENTATIVE Body Mass Index 33.99 10/22/2024 4:46 PM PASSENGER RELATIONS REPRESENTATIVE Plan of Treatment Scheduled Procedures Name Priority Associated Diagnoses Date/Ti me COLONOSCOPY Open Access Diverticulitis Procedures Procedure Name Priority Date/Time Associated Diagnosis Comments XR CHEST PA LATERAL 2 VIEWS ED 10/22/2024 5:05 PM PASSENGER RELATIONS REPRESENTATIVE URINALYSIS, MICROSCOPIC ONLY STAT 10/22/2024 5:01 PM PASSENGER RELATIONS REPRESENTATIVE URINALYSIS AND REFLEX TO MICROSCOPIC AND CULTURE STAT 10/22/2024 5:01 PM PASSENGER RELATIONS REPRESENTATIVE INFLUENZA A/B, RSV, AND COVID-19 PCR STAT 10/22/2024 4:59 PM PASSENGER RELATIONS REPRESENTATIVE EGFR STAT 10/13/2024 10:11 AM PASSENGER RELATIONS REPRESENTATIVE HEMOGLOBIN A1C Routine 01/22/2020 9:58 AM CDT LIPID PANEL Routine 01/22/2020 9:58 AM CDT COLONOSCOPY REPORT 07/01/2017 from Last 3 Months or Most Recently Relevant to Health Maintenance Results * XR Chest PA Lateral 2 Views (10/22/2024 5:05 PM PASSENGER RELATIONS REPRESENTATIVE) Anatomical Region Laterality Modality Body, Chest N/A Computed Radiogr aphy 10/22/2024 5:38 PM PASSENGER RELATIONS REPRESENTATIVE Narrative 10/22/2024 5:38 PM PASSENGER RELATIONS REPRESENTATIVE EXAM DESCRIPTION: XR CHEST PA LATERAL 2 [...] Dave Kat M.D. KT: SARTHAK Report ID: [id number] Reading Location: [id number] Procedure Note Dave Kat MD - 10/22/2024 [...] Dave Kat M.D. KT: SARTHAK Report ID: [id number] Reading Location: [id number] us Jhoana Potts NP IMG XR PROCEDURES Final Resul t * (ABNORMAL) Urinalysis reflex to microscopic and culture Urine, clean voided (10/22/2024 5:01 PM PASSENGER RELATIONS REPRESENTATIVE) Color, ur Yellow Yellow Comment:Testing performed by : [address] [address] Clarity, ur Clear Clear VAL Comment:Testing performed by : [address] [address] Specific gravity, ur 1.009 1.003 - 1.030 VAL Comment:Testing performed by : [address] [address] pH, urine 6.5 VAL Comment: Interpretive Data U rine pH is affected by diet, medications, systemic acid-base disturbances, and renal tubular function. pH may affect urinary stone formation. For example, urine pH below 6.0 may help reduce the tendency for calcium phosphate stones and pH greater than 6.0 may reduce the tendency for uric acid stone formation. Source: [facility] Current Interpretive Data was last revised on 2017 Testing performed by: [facility], [address] [place] [address], [place]., [address] Protein, ur ql Trace(A) Negative VAL MULLER Comment:Testing performed by : [address], [place]., [address] Glucose, ur ql Negative Negative VAL Comment:Testing performed by : [address], [place]., [address] Ketones, ur Negative Negative VAL Comment:Testing performed by : [address], [place]., [address] Bilirubin, ur Negative Negative VAL Comment:Testing performed by : [address], [place]., [address] Blood, ur Negative Negative VAL Comment:Testing performed by : [address], [place]., [address] Urobilinogen, ur <2.0 <2.0 mg/dL VAL Comment:Testing performed by : [address], [place]., [address] Nitrite, ur Negative Negative VAL Comment:Testing performed by : [address] [address] Leukocyte esterase, ur Negative Negative VAL Comment:Testing performed by : [address], [place]., [address] UA reflex comment Reflex to microscopic UA will be performed. VAL Comment:Testing performed by : [address] [address] Urine, clean voided 10/22/2024 5:01 PM PASSENGER RELATIONS REPRESENTATIVE 10/22/2024 5:06 PM PASSENGER RELATIONS REPRESENTATIVE Jhoana Potts NP LAB MICROBIOLOGY - GENERAL OR DERABLES Final Result VAL MULLER [address] [facility] Department [place] [address] * Urinalysis, microscopic only (10/22/2024 5:01 PM PASSENGER RELATIONS REPRESENTATIVE) WBC, ur 0-5 0 - 5 /HPF Comment:Testing performed by : [address] [address] RBC, ur 0-2 0 - 2 /HPF VAL Comment:Testing performed by : [address] [address] Culture Reflex Comment Reflex conditions for urine culture (WBC >10) not met. VAL Comment:Testing performed by : [address] [address] Urine, clean voided 10/22/2024 5:01 PM PASSENGER RELATIONS REPRESENTATIVE 10/22/2024 5:06 PM PASSENGER RELATIONS REPRESENTATIVE Jhoana Potts OIL DEVELOPER LAB URINE ORDERABLES Final Re sult VAL [address] [facility] Department of Laboratories [place], [place] [id number] * (ABNORMAL) Influenza A/B, RSV, and COVID-19 PCR Nasopharyngeal (10/22/2024 4:59 PM PASSENGER RELATIONS REPRESENTATIVE) COVID-19 RNA Negative Negative Comment:Testing performed by : [address] [address] Influenza A RNA Positive(A) Negative VAL Comment:Testing performed by : [address] [address] Influenza B RNA Negative Negative VAL Comment:Testing performed by : [address] [address] RSV RNA Negative Negative VAL Comment: Interpretive data: Testing performed by [facility]. This test is performed using the [employer] Xpert Xpress CoV-2/Flu/RSV plus assay. This is a multiplex, real-time reverse transcriptase PCR assay intended for the qualitative detection of nucleic acid from SARS-CoV-2, influenza A, influenza B, and respiratory syncytial virus. This assay has been cleared by the [place] Food and Drug administration. The performance characteristics have been verified by the [facility]. Results must be considered in the clinical context, and a negative result does not rule out infection. Interpretive Data last revised 2023 Testing performed by: [facility], [address] [place] [address]., [address] Nasopharyngeal 10/22/2024 4: 59 PM PASSENGER RELATIONS REPRESENTATIVE 10/22/2024 5:05 PM PASSENGER RELATIONS REPRESENTATIVE Narrative VAL - 10/22/2024 5:52 PM PASSENGER RELATIONS REPRESENTATIVE Is the Patient experiencing symptoms consistent with COVID?->Yes Jhoana Potts NP LAB MICROBIOLOGY - GENERAL OR DERABLES Final Result Performing Organization Address City/[facility]/ZIP Co de Phone Number VAL [address] [email or web address] [address] * eGFR (10/13/2024 10:11 AM PASSENGER RELATIONS REPRESENTATIVE) eGFR >90 >=60 mL/min/1. 73 m2 Comment: [...] was last reviewed 2021. Testing performed by: [facility], [address] [place] [address]., [address] Blood 10/13/2024 10:1 1 AM PASSENGER RELATIONS REPRESENTATIVE 10/13/2024 10:24 AM PASSENGER RELATIONS REPRESENTATIVE Miguel Stokes DO LAB BLOOD ORDERABLES Final Result Performing Organization Address City/[facility]/ZIP Co de Phone Number VAL [address] Department [place] [address] * (ABNORMAL) Hemoglobin A1c (01/22/2020 9:58 AM CDT) Hemoglobin A1c % 6.2(H) 4.0 - 5.6 % [facility] Comment: ADA 2016 GUIDELINES: Initial Diagnostic Criteria HbA1c Result: Interpretation: <5.7% Normal 5.7-6.4% At risk for diabetes mellitus >=6.5% Consistent with diabetes mellitus Diabetes monitoring Target value (ADA Recommended) <7% 01/22/2020 9:58 AM CDT 01/22/2020 10:14 AM CDT Narrative Resulting Agency Comment CLI us Charanjit Sheffield MD LAB BLOOD ORDERABLES Final Result [address] [place] [address], [facility] [phone] * (ABNORMAL) Lipid panel (01/22/2020 9:58 AM CDT) Triglycerides 173(H) 0 - 149 mg/dL [facility] Comment: National Lipid Association/NCEP Guidelines: Normal < 150 mg/dL Borderline high 150-199 mg/dL High 200-499 mg/dL Very High >=500 mg/dL Cholesterol 152 0 - 199 mg/dL [facility] Comment: National Lipid Association/NCEP Guidelines: Desirable < 200 mg/dL Borderline high: 200-239 mg/dL High Risk: >=240 mg/dL HDL Cholesterol 22 mg/dL [facility] Comment: Reference Ranges: Males: >=40 mg/dL Females: >=50 mg/dL LDL Cholesterol, Calc 95 0 - 129 mg/dL [facility] Comment: National Lipid Association/NCEP Guidelines: Optimal < 100 mg/dL Near Optimal 100-129 mg/dL Borderline high 130-159 mg/dL High >=160 mg/dL Cholesterol/HDL Ratio 6.9 [facility] Comment: Optimal < 3.5:1 High > 5:1 01/22/2020 9:58 AM CDT 01/22/2020 10:14 AM CDT Narrative Resulting Agency Comment CLI Charanjit Sheffield MD LAB BLOOD [place] [address], [facility] [phone] * COLONOSCOPY REPORT (07/01/2017) Anatomical Region Laterality Modality Other Provider Scanning GI PROCEDURE ORDERABLES Edited Result - Final from Last 3 Months or Most Recently Relevant to Health Maintenance Insurance [facility] Care Teams Liability Claims Manager Relationship Specialty Start Date End Date Unknown, Notinfile PCP - General 08/01/24 Miscellaneous, Not In File 11/16/19
--- OUTSIDE RECORDS SUMMARY | 2025-01-15 22:24 | XMS_ITS | Encounter Summary ---
Author Organization [facility] Address [address] [facility] [place] [address] Care Team Providers Care Drill Operator Pneumatic Name Role Phone Unavailable Primary Care Provider Unavailabl e Reason for Visit * Reason Onset Date Comments Nausea 10/02/2019 Cramps 10/02/2019 Pain Abdominal 10/02/2019 Encounter Details Date Type Department Care Team (Late st Contact Info) Description 10/02/2019 Telephone [facility] [address] [facility] [address] [place] [address] Radha Palafox, HAND BUNCH MAKER-ATOMIC SPECTROSCOPIST [address] OF [facility] INTER[place] [id number] Nausea; Cramps; Pain Abdominal Social History Tobacco Use Types Packs/Day Years Used Date Smoking Tobacco: Former Smokeless Tobacco: Never Alcohol Use Standard Drinks/Week Comments No 0 (1 standard drink = 0.6 oz pur e alcohol) Sex and Gender Information Value Date Recorded Sex Assigned at Not on file Legal Sex Male 6:27 AM 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 Pt requesting GIM office call [facility], [phone] for ED report for VENTURA Palafox to review. IA recommended pt call ED and request medical records to be faxed to GI and pt raised voice w/ increased agitation at IA stating he had no time and would [...] for c/b to discuss sx further. CB# [phone] Routed to provider for further review ITY OPERATOR documented in this encounter Plan of Treatment Not on file documented as of this encounter Visit Diagnoses Not on filedocumented in this encounter
--- NOTE | 2025-01-15 22:47 | ECG_ITS ---
Test Date: 2025-01-15 23:31:09 Measurements Intervals [place] Rate: 72 P: -2 NE: 154 QRS: 24 QRSD: 98 T: 23 QT: 375 QTc: 412 Interpretive Statements SINUS RHYTHM NONSPECIFIC T-WAVE ABNORMALITY Compared to ECG 12/24/2024 20:55:34 NO SIGNIFICANT CHANGES Electronically Signed On 01-16-2025 14:23:59 CDT by Jose Wilson M.D.
[2025-01-15 23:08] LABS: Basophils Absolute Auto 0.1 K/mm3 (0.0-0.1); Basophils Percent Auto 0.9 % (0.2-1.2); Eosinophils Absolute Auto 0.1 K/mm3 (0-0.3); Hematocrit 40.7 % (42.0-52.0); Hemoglobin 11.9 g/dL (14.0-18.0); Immature Granulocyte Absolute 0.02 K/mm3 (0.00-0.031); Immature Granulocyte Percent A 0.3 % (0-0.5); Lymphocytes Absolute Auto 1.36 K/mm3 (0.9-3.2); Lymphocytes Percent Auto 23.2 % (18.3-44.2); Mean Corpuscular HGB Conc 29.2 g/dl (32-36); Mean Corpuscular Hemoglobin 19.9 pg (26-34); Mean Corpuscular Volume 68.1 fl (80-100); Mean Platelet Volume 9.3 fl (7.4-10.4); Monocytes Absolute Auto 0.4 K/mm3 (0.1-0.6); Monocytes Percent Auto 6.1 % (2.6-8.5); Neutrophils Percent Auto 67.5 % (45.5-73.1); Platelet Count Result 165 k/mm3 (150-375); Red Blood Count 5.98 M/mm3 (4.6-6.20); Red Cell Distribution Width 19.3 % (11.5-14.5); White Blood Count 5.9 K/mm3 (4.5-10.0)
[2025-01-15 23:26] LABS: Lipase 75 U/L (23-300)
--- NOTE | 2025-01-15 23:34 | PC.NURSE ---
pt refused IV,blood draw, and medications. pt states this is useless. I told the other girl who diann my blood to wait and talk to doctor if I need an IV . This RN educated pt about medications and the reason for the IV. pt still refused. EDP made aware. pt allowing us to get a CT scan without contrast.
[2025-01-15 23:39] LABS: Platelet Estimate Adequate (Adequate); Troponin I < 0.012 ng/mL (0.000-0.034)
[2025-01-15 23:40] LABS: Anisocytosis 1+; Microcytosis 1+ (NORMAL); Ovalocytes 1+; Schistocytes None Seen
[2025-01-16 00:12] VITALS: BP 151/84; PULSE 70; RESP 16; O2SAT 100
[2025-01-16 00:52] LABS: Add Urine Microscopic? NO; Appearance Urine Clear (Clear); Bilirubin Urine Negative (Negative); Blood Urine Negative (Negative); Color Urine Yellow (Yellow); Glucose Urine UA Negative (Negative); Ketones Urine Negative (Negative); Leukocyte Esterase Ur Negative LEU/UL (Negative); Nitrate Urine Negative (Negative); Protein Urine Negative (Negative); Specific Grav Ur 1.005 (1.001-1.035); Urobilinogen Urine 0.2 mg/dL (<2.0); pH Urine 7.5 (5.0-9.0)
[2025-01-16 01:00] LABS: Alanine Aminotransferase 38 U/L (6-50); Albumin Level 4.8 g/dL (3.5-5.1); Alkaline Phosphatase 69 U/L (38-126); Anion Gap 12 mmol/L (4-12); Aspartate Amino Transferase 35 U/L (17-59); Bilirubin,Total 1.3 mg/dL (0.2-1.3); Blood Urea Nitrogen 7 mg/dL (9-20); Calcium 9.3 mg/dL (8.4-10.2); Carbon Dioxide 26 mmol/L (22-30); Chloride 102 mmol/L (98-107); Estimated CRCL calculation 136 ml/min; Estimated Glomerular Filt Rate > 60; Glucose 129 mg/dL (65-110); Potassium 3.6 mmol/L (3.4-5.0); Sodium 140 mmol/L (137-145)
--- NOTE | 2025-01-16 02:47 | ED.ABDPAIN ---
HPI - Abdominal Pain General Chief Complaint: Abdominal Pain Stated Complaint: abd pain Time Seen by Provider: 01/15/25 22:16 History of Present Illness HPI narrative: Patient presents here with abdominal pain, epigastric abdomen with burning sensation, he has also been out of his Prilosec. He is concerned that he may have diverticulitis again since he has had this in the past for over 20 years. Does not have a primary care doctor or GI doctor and has not followed up with anyone. Is requesting antibiotics. States that he has been having intermittent constipation then diarrhea. Related Data Home Medications ?Medication ?Instructions ?Recorded ?Confirmed ?Last Taken ?Type potassium chloride 10 mEq 10 meq PO DAILY 06/09/23 07/26/24 08/18/24 History tablet,extended release omeprazole 40 mg capsule,delayed 40 mg PO DAILY 04/22/24 08/29/24 08/18/24 History release atenolol 50 mg tablet 50 mg PO Q24H 08/29/24 08/29/24 Unknown History Allergies Allergy/AdvReac Type Severity Reaction Status Date / Time Iodinated Contrast Media Allergy Severe Anaphylaxis Verified 01/15/25 21:33 metformin Allergy Severe Stopped Verified 01/15/25 21:33 Breathing Sulfa (Sulfonamide Allergy Severe Anaphylaxis Verified 01/15/25 21:33 Antibiotics) sulfamethoxazole Allergy Severe Anaphylaxis Verified 01/15/25 21:33 famotidine Allergy Intermediate Hives Verified 01/15/25 21:33 losartan Allergy Intermediate SWLLEING Verified 01/15/25 21:33 LIP AND HIVES nebivolol Allergy Intermediate LIP Verified 01/15/25 21:33 SWELLING Quinolones Allergy Intermediate Nervousness Verified 01/15/25 21:33 valsartan Allergy Intermediate HIVES/SOB Verified 01/15/25 21:33 amlodipine Allergy Mild HIVES Verified 01/15/25 21:33 azithromycin Allergy Mild Nervousness Verified 01/15/25 21:33 pantoprazole Allergy Mild Hives Verified 01/15/25 21:33 spironolactone Allergy Mild RASH AND Verified 01/15/25 21:33 ITCHING trimethoprim Allergy Mild RASH Verified 01/15/25 21:33 morphine Allergy Unknown Verified 01/15/25 21:33 cephalexin AdvReac Mild Nervousness Verified 01/15/25 21:33 flavoxate AdvReac Mild Nervousness Verified 01/15/25 21:33 levofloxacin AdvReac Mild Nervousness Verified 01/15/25 21:33 lidocaine AdvReac Mild Nervousness Verified 01/15/25 21:33 lisinopril AdvReac Mild Nervousness Verified 01/15/25 21:33 nitrofurantoin AdvReac Mild Nervousness Verified 01/15/25 21:33 oxycodone AdvReac Mild Nervousness Verified 01/15/25 21:33 paroxetine AdvReac Mild Nervousness Verified 01/15/25 21:33 Review of Systems Review of Systems: All systems reviewed & are unremarkable except as noted in HPI and below PMFSH Past Medical History Medical History Prediabetes Allergic rhinitis Chronic sinusitis Chronic post-traumatic stress disorder (PTSD) Anxiety Depression GERD (gastroesophageal reflux disease) Sleep apnea Asthma HTN (hypertension) CAD (coronary artery disease) history [place] Concussion Surgical History Surgical History H/O gastric bypass Hx of cholecystectomy History of cardiac cath History of colonoscopy Family History Family History Grandparent Family history of obesity Hypertension Diabetes mellitus Mother Depression Patient's mother is in good health Family history of mental disorder Father Hypertension Patient's father is in good health Family history of alcoholism Cerebrovascular accident Sibling Patient's sister is in good health Patient's brother is in good health Father Cerebrovascular accident Alcoholism Hypertension Heart disease Mother Family history of malignant neoplasm Depression Hypertension Other Family history of cardiovascular disease Social History Social History Smoking status: Former smoker Smoking end date: 09/13/95 Alcohol intake: former Substance use: never Substance use type: opiates Lack of Transportation: No Lack of Food: Never True Current Housing: I Have Housing Concerned About Future Housing: No Difficulty Paying Gas/Electric Bills: No Difficulty Paying for Meds: No Currently Unemployed: No Education: Master's Degree or Higher Difficulty w/ Childcare or Family Care: No Living arrangements: alone Occupation/Education: occupation Gender identity (if verbalized by the patient): Male Sexual Orientation (if Verbalized by the Patient): Straight or Heterosexual Spiritual care concerns: No Exam Narrative: EXAMINATION OF ORGAN SYSTEMS/BODY AREAS: Constitutional: Vital signs per nursing GENERAL:[No acute distress, non-toxic appearing.] HEAD: Normal with no signs of head trauma. EYES: EOMI, conjunctiva normal ENT: Hearing grossly intact LUNGS: Nonlabored breathing. HEART: [Regular rate and rhythm] ABD: [Soft], [nontender to palpation] EXT: Normal range of motion SKIN: [No rashes or lesions.] NEURO: [Alert and oriented x 3. No gross focal sensory or strength deficits.] PSYCH: Normal affect Course Vital Signs Vital signs: Vital Signs Pulse Rate 83 01/15/25 21:35 Respiratory Rate 18 01/15/25 21:35 Blood Pressure 181/93 H 01/15/25 21:35 Pulse Oximetry 99 01/15/25 21:35 Pulse Rate 70 01/16/25 00:12 Respiratory Rate 16 01/16/25 00:12 Blood Pressure 151/84 H 01/16/25 00:12 Pulse Oximetry 100 01/16/25 00:12 MDM - Abdominal Pain MDM Narrative Medical decision making narrative: Electronic medical record was reviewed. Patient presented to the ED with complaint of [abdominal pain with slight nausea]. Vitals [were within acceptable limits]. Physical exam revealed soft abdomen without any focal tenderness. Based on the patient's history and physical exam, my differential includes but is not limited to [gastritis, gastroenteritis, cholecystitis, pancreatitis, diverticulitis, SBO]. Patient refused IV, and refused medications ordered. CBC, BMP, lipase, LFTs, bilirubin and alk phos were obtained. Labs were pertinent for labs within acceptable. [Decision was made to obtain a CT-abdomen to evaluate for acute abdominal process. CT-abdomen per radiology interpretation is unremarkable for acute intra-abdominal process.] On reevaluation, the patient is very upset that he did not get antibiotics and is insisting on them. There were no witnessed episodes of vomiting in the emergency department. They are not complaining of any new abdominal pain. Repeat examination did not show any significant guarding or rebound. [The patient was informed of the above diagnostic test findings.] I did let him know that it does not show any signs of diverticulitis so I in good conscience cannot start him on antibiotics and that if he has continued to have this pain then he needs to follow-up with gastroenterology specialist he has had so many episodes of diverticulitis in the past. They will be discharged home with refill for Prilosec. They were advised to follow-up with GI in 2 days. I did also let him know that if anything changes he can always return to the emergency room. Lab Data 01/15/25 22:48 01/15/25 16:54 Labs: Lab Results 01/15/25 01/15/25 01/16/25 Range/Units 16:54 22:48 00:28 WBC 5.9 (4.5-10.0) K/mm3 RBC 5.98 (4.6-6.20) M/mm3 Hgb 11.9 L (14.0-18.0) g/dL Hct 40.7 L (42.0-52.0) % MCV 68.1 L (80-100) fl MCH 19.9 L (26-34) pg MCHC 29.2 L (32-36) g/dl RDW 19.3 H (11.5-14.5) % Plt Count 165 (150-375) k/mm3 MPV 9.3 (7.4-10.4) fl Immature Gran % (Auto) 0.3 (0-0.5) % Neut % (Auto) 67.5 (45.5-73.1) % Lymph % (Auto) 23.2 (18.3-44.2) % Bacon % (Auto) 6.1 (2.6-8.5) % Eos % (Auto) 2.0 (0-4.4) % Baso % (Auto) 0.9 (0.2-1.2) % Lymph # (Auto) 1.36 (0.9-3.2) K/mm3 Bacon # (Auto) 0.4 (0.1-0.6) K/mm3 Eos # (Auto) 0.1 (0-0.3) K/mm3 Baso # (Auto) 0.1 (0.0-0.1) K/mm3 Abs Immat Gran (auto) 0.02 (0.00-0.031) K/mm3 Absolute Neuts (auto) 4.0 (1.3-6.7) K/mm3 Absolute Nucleated RBC 0.000 (0.0-0.012) K/mm3 Band Neutrophils % Not Reportable Nucleated RBC % 0.0 (0.0-0.2) % Platelet Estimate Adequate (Adequate) Anisocytosis 1+ Microcytosis 1+ (NORMAL) Ovalocytes 1+ Schistocytes None seen Sodium 140 (137-145) mmol/L Potassium 3.6 (3.4-5.0) mmol/L Chloride 102 (98-107) mmol/L Carbon Dioxide 26 (22-30) mmol/L Anion Gap 12 (4-12) mmol/L BUN 7 L (9-20) mg/dL Creatinine 0.67 L (0.7-1.3) mg/dL Estim Creat Clear Calc 136 ml/min Estimated GFR > 60 (59 - ) Glucose 129 H (65-110) mg/dL Calcium 9.3 (8.4-10.2) mg/dL Total Bilirubin 1.3 (0.2-1.3) mg/dL AST 35 (17-59) U/L ALT 38 (6-50) U/L Alkaline Phosphatase 69 (38-126) U/L Troponin I < 0.012 (0.000-0.034) ng/mL Total Protein 8.0 (6.3-8.2) g/dL Albumin 4.8 (3.5-5.1) g/dL Lipase 75 (23-300) U/L Urine Color Yellow (Yellow) Urine Appearance Clear (Clear) Urine pH 7.5 (5.0-9.0) Ur Specific [place] 1.005 (1.001-1.035) Urine Protein Negative (Negative) mg/dL Urine Glucose (UA) Negative (Negative) mg/dL Urine Ketones Negative (Negative) mg/dL Ur Blood (Man) Negative (Negative) Urine Nitrate Negative (Negative) Urine Bilirubin Negative (Negative) Urine Urobilinogen 0.2 (<2.0) mg/dL Leukocyte Esterase Rfl Negative (Negative) KENNY/UL Imaging Data Radiologist's impression: ITS Impressions Abdomen/Pelvis CT 01/16/25 00:06 IMPRESSION: Findings consistent with patient's self-reported mass within the sigmoid colon. This morphologic appearance is unchanged from prior. Diverticulosis without surrounding inflammatory change. Bilateral renal calculi. Discharge Plan Discharge Clinical Impression: Diverticulosis Patient Disposition: Home Condition: Stable Instructions: Diverticulosis (ED), Abdominal Pain (ED) Additional Instructions: Please follow up with the GI doctor; you can always return to the ER for any further issues. Patient Language: Polish Prescriptions: New omeprazole 40 mg capsule,delayed release(DR/EC) 40 mg PO DAILY Qty: 30 0RF No Action potassium chloride 10 mEq tablet extended release 10 meq PO DAILY omeprazole 40 mg capsule,delayed release(DR/EC) 40 mg PO DAILY atenolol 50 mg tablet 50 mg PO Q24H Patient Comments: PT STATES HE IS NOW TAKING 100MG PO DAULY omeprazole 40 mg capsule,delayed release(DR/EC) 40 mg PO DAILY 30 Days Qty: 30 0RF atenolol 100 mg tablet 100 mg PO DAILY 30 Days Qty: 30 0RF omeprazole 40 mg capsule,delayed release(DR/EC) 40 mg PO DAILY 30 Days Qty: 30 0RF albuterol sulfate 90 mcg/actuation HFA aerosol inhaler 2 puff inhalation Q4-6H PRN (Reason: shortness of breath or wheezing) 30 Days Qty: 8.5 0RF fluticasone propionate [Flonase Allergy Relief] 50 mcg/actuation spray,suspension 1 spray intranasal BID Qty: 16 0RF Rx Instructions: administer into each nostril (DME) Aerochamber Plus Z Stat Spacer See Rx Instructions .Route Qty: 1 0RF Rx Instructions: As directed omeprazole 40 mg capsule,delayed release(DR/EC) 40 mg PO DAILY Qty: 30 0RF atenolol 100 mg tablet 100 mg PO DAILY Qty: 30 0RF omeprazole 40 mg capsule,delayed release(DR/EC) 40 mg PO DAILY Qty: 30 0RF atenolol 100 mg tablet 100 mg PO DAILY Qty: 30 0RF methylprednisolone [Medrol (Vega)] 4 mg tablets,dose pack See Rx Instructions PO .COMPLEX Qty: 21 0RF Rx Instructions: orally per package directions fluticasone propionate [24 Hour Allergy Relief] 50 mcg/actuation spray,suspension 2 spray intranasal DAILY Qty: 16 0RF Rx Instructions: administer into each nostril omeprazole 20 mg capsule,delayed release(DR/EC) 40 mg PO DAILY 14 Days Qty: 28 0RF cyclobenzaprine 10 mg tablet 10 mg PO BID PRN (Reason: muscle spasm) Qty: 14 0RF promethazine 25 mg tablet 25 mg PO TID PRN (Reason: nausea and vomiting) Qty: 20 0RF metronidazole 500 mg tablet 500 mg PO Q8H 10 Days Qty: 30 0RF ciprofloxacin HCl 500 mg tablet 500 mg PO Q12H 10 Days Qty: 20 0RF ferrous sulfate 325 mg (65 mg iron) tablet 325 mg PO DAILY Qty: 90 1RF escitalopram oxalate [Lexapro] 20 mg tablet 20 mg PO DAILY Qty: 30 5RF Follow-up/Referrals: PHYSICIAN,[facility] [Primary Care Provider] - Silas Fisher MD [Physician] - 2 Days
== END 2025-01-16 02:11 | disposition home or self-care (01) ==
PROVIDERS: Emergency Provider Emergency Medicine
DX: K57.90 Diverticulosis of intestine, part unspecified, without perforation or abscess without bleeding (principal); F41.8 Other specified anxiety disorders; K21.9 Gastro-esophageal reflux disease without esophagitis; J45.909 Unspecified asthma, uncomplicated; I10 Essential (primary) hypertension; I25.10 Atherosclerotic heart disease of native coronary artery without angina pectoris; Z98.84 Bariatric surgery status; Z87.891 Personal history of nicotine dependence
CPT/HCPCS: 36415; 74176; 80053; 81003; 83690; 84484; 85025; 93005; 99284

== ENCOUNTER 2025-01-31 09:59 | Emergency (ER) | payer OTHER, SELFPAY ==
[2025-01-31 10:10] VITALS: BP 159/82; PULSE 58; RESP 18; TEMP 36.6; O2SAT 100
--- NOTE | 2025-01-31 10:19 | ED.DENTAL ---
HPI - Dental/Oral General Chief complaint: Dental/Oral Stated complaint: Tooth ache / blood pressure Time Seen by Provider: 01/31/25 10:10 Source: patient and RN notes reviewed Mode of arrival: ambulatory Limitations: no limitations History of Present Illness HPI Narrative: 54-year-old male presents [facility] complaining of left upper dental pain and request for medication refill. Patient reports having a recent dental procedure and had molars extracted. Patient reports having left upper dental pain and did not want to go back to his dentist because they were going to charge him again to be seen. Patient denies any swelling, fevers, difficulty swallowing,, or any breathing problems. Patient also reports that he has ran out of his atenolol for his hypertension. Patient denies any blurry vision, headaches, or any symptoms of this blood pressure. Related Data Home Medications ?Medication ?Instructions ?Recorded ?Confirmed ?Last Taken ?Type potassium chloride 10 mEq 10 meq PO DAILY 06/09/23 07/26/24 08/18/24 History tablet,extended release omeprazole 40 mg capsule,delayed 40 mg PO DAILY 04/22/24 08/29/24 08/18/24 History release atenolol 50 mg tablet 50 mg PO Q24H 08/29/24 08/29/24 Unknown History Allergies Allergy/AdvReac Type Severity Reaction Status Date / Time Iodinated Contrast Media Allergy Severe Anaphylaxis Verified 01/31/25 10:17 metformin Allergy Severe Stopped Verified 01/31/25 10:17 Breathing Sulfa (Sulfonamide Allergy Severe Anaphylaxis Verified 01/31/25 10:17 Antibiotics) sulfamethoxazole Allergy Severe Anaphylaxis Verified 01/31/25 10:17 famotidine Allergy Intermediate Hives Verified 01/31/25 10:17 losartan Allergy Intermediate SWLLEING Verified 01/31/25 10:17 LIP AND HIVES nebivolol Allergy Intermediate LIP Verified 01/31/25 10:17 SWELLING Quinolones Allergy Intermediate Nervousness Verified 01/31/25 10:17 valsartan Allergy Intermediate HIVES/SOB Verified 01/31/25 10:17 amlodipine Allergy Mild HIVES Verified 01/31/25 10:17 azithromycin Allergy Mild Nervousness Verified 01/31/25 10:17 pantoprazole Allergy Mild Hives Verified 01/31/25 10:17 spironolactone Allergy Mild RASH AND Verified 01/15/25 21:33 ITCHING trimethoprim Allergy Mild RASH Verified 01/31/25 10:17 morphine Allergy Unknown Verified 01/31/25 10:17 cephalexin AdvReac Mild Nervousness Verified 01/31/25 10:17 flavoxate AdvReac Mild Nervousness Verified 01/31/25 10:17 levofloxacin AdvReac Mild Nervousness Verified 01/31/25 10:17 lidocaine AdvReac Mild Nervousness Verified 01/31/25 10:17 lisinopril AdvReac Mild Nervousness Verified 01/31/25 10:17 nitrofurantoin AdvReac Mild Nervousness Verified 01/31/25 10:17 oxycodone AdvReac Mild Nervousness Verified 01/31/25 10:17 paroxetine AdvReac Mild Nervousness Verified 01/31/25 10:17 Review of Systems Review of Systems: CONSTITUTIONAL: Denies fever, chills, or sweats. EYES: Denies visual changes, redness, or discharge. ENT: Denies rhinorrhea, congestion, sore throat, or otalgia. MOUTH: Positive for dental pain CARDIOVASCULAR: Denies chest pain, palpitations, dizziness, or edema. RESPIRATORY: Denies cough or dyspnea. GASTROINTESTINAL: Denies abdominal pain, nausea, vomiting, or diarrhea. GENITOURINARY: Denies dysuria or hematuria. SKIN: Denies rash or itching. MUSCULOSKELETAL: Denies back pain, joint pain, or myalgia. NEUROLOGIC: Denies headache, numbness, or weakness. PSYCHIATRIC: Denies anxiety or depression. All other systems reviewed are negative, except as documented in HPI. [facility], [facility] Past Medical History Medical History Prediabetes Allergic rhinitis Chronic sinusitis Chronic post-traumatic stress disorder (PTSD) Anxiety Depression GERD (gastroesophageal reflux disease) Sleep apnea Asthma HTN (hypertension) CAD (coronary artery disease) history [place] Concussion Surgical History Surgical History H/O gastric bypass Hx of cholecystectomy History of cardiac cath History of colonoscopy Family History Family History Grandparent Family history of obesity Hypertension Diabetes mellitus Mother Depression Patient's mother is in good health Family history of mental disorder Father Hypertension Patient's father is in good health Family history of alcoholism Cerebrovascular accident Sibling Patient's sister is in good health Patient's brother is in good health Father Cerebrovascular accident Alcoholism Hypertension Heart disease Mother Family history of malignant neoplasm Depression Hypertension Other Family history of cardiovascular disease Social History Social History Smoking status: Former smoker Smoking end date: 09/13/95 Alcohol intake: former Substance use: never Substance use type: opiates Lack of Transportation: No Lack of Food: Never True Current Housing: I Have Housing Concerned About Future Housing: No Difficulty Paying Gas/Electric Bills: No Difficulty Paying for Meds: No Currently Unemployed: No Education: Master's Degree or Higher Difficulty w/ Childcare or Family Care: No Living arrangements: alone Occupation/Education: occupation Gender identity (if verbalized by the patient): Male Sexual Orientation (if Verbalized by the Patient): Straight or Heterosexual Spiritual care concerns: No Comments At the time of my signature, I reviewed and agree with the nursing past medical, surgical, social, and family history. There is no relevant family history pertinent to the patient complaint. Exam Narrative: GENERAL: This is a well-nourished, well-developed adult, in no apparent distress. They are non ill-appearing, nontoxic appearing. HEAD: normocephalic, atraumatic. EYES: Sclera clear/white. Conjunctiva normal. Vision is grossly intact. Extraocular movements intact. Pupils PERRLA EARS: External ears normal, Hearing grossly intact. NOSE: External nose normal THROAT: Mucous membranes moist, posterior pharynx clear, without erythema or swelling. Uvula midline. NECK: Neck supple, non-tender without lymphadenopathy, masses or thyromegaly. MOUTH: Missing teeth present. No obvious dental decay. Left upper, gum line near 3rd molar site erythemic without swelling. No induration area of fluctuance. No gingivitis. No swelling or pain under the tongue. Tongue is normal. CARDIOVASCULAR: Regular rate and rhythm RESPIRATORY: Respiratory rate normal, respiratory effort nonlabored, no respiratory distress SKIN: warm, Dry, intact with no suspicious lesions or rash, good texture and turgor. NEURO: awake, alert, and oriented to person, place and time. There were no obvious focal neurologic abnormalities. EXTREMITIES: No edema noted. Course Course Emergency Course: Portions of this record may have been created with voice recognition software Level of Care: Express Care Visit Vital Signs Vital signs: Vital Signs Temperature 97.8 F 01/31/25 10:10 Pulse Rate 58 L 01/31/25 10:10 Respiratory Rate 18 01/31/25 10:10 Blood Pressure 159/82 H 01/31/25 10:10 Pulse Oximetry 100 01/31/25 10:10 Oxygen Delivery Room Air 01/31/25 10:10 Temperature 97.8 F 01/31/25 10:10 Pulse Rate 58 L 01/31/25 10:10 Respiratory Rate 18 01/31/25 10:10 Blood Pressure 159/82 H 01/31/25 10:10 Pulse Oximetry 100 01/31/25 10:10 Oxygen Delivery Room Air 01/31/25 10:10 Reviewed MDM - Dental/Oral MDM Narrative Medical decision making narrative: Slight erythema where his 3rd molar was pulled. Will treat empirically with Augmentin to prevent worsening infection. Advised patient to follow-up with a dentist for further evaluation and management. Patient also states he is out of his atenolol for hypertension. Prescription for atenolol was refilled. Discussed physical exam findings. Advised supportive measures and signs/symptoms to go to the ER. Pt is appropriate for outpt treatment and f/u. Differential Diagnosis Differential diagnosis: Likely gingival abscess, dental caries, dental abscess and other (Hypertension) Critical Care Time Critical Care Time Critical Care Time: No Discharge Plan Discharge Clinical Impression: Pain, dental, Encounter for medication refill, Hypertension Patient Disposition: Home Condition: Stable Instructions: Antibiotic Form, Toothache (ED) Additional Instructions: Take antibiotics as directed. I have sent you a refill for your atenolol for your blood pressure. Please follow-up with a dentist for further evaluation and management of your dental problems. Follow-up with primary care provider in 3-5 days. If you develops any worsening swelling, breathing problems, fevers, or any other concerns please go to the ER immediately Patient Language: Maltese Prescriptions: New amoxicillin-pot clavulanate 875-125 mg tablet 1 tablet PO Q12H 7 Days Qty: 14 0RF atenolol 100 mg tablet 100 mg PO DAILY Qty: 30 0RF No Action potassium chloride 10 mEq tablet extended release 10 meq PO DAILY omeprazole 40 mg capsule,delayed release(DR/EC) 40 mg PO DAILY atenolol 50 mg tablet 50 mg PO Q24H Patient Comments: PT STATES HE IS NOW TAKING 100MG PO DAULY omeprazole 40 mg capsule,delayed release(DR/EC) 40 mg PO DAILY 30 Days Qty: 30 0RF atenolol 100 mg tablet 100 mg PO DAILY 30 Days Qty: 30 0RF omeprazole 40 mg capsule,delayed release(DR/EC) 40 mg PO DAILY 30 Days Qty: 30 0RF albuterol sulfate 90 mcg/actuation HFA aerosol inhaler 2 puff inhalation Q4-6H PRN (Reason: shortness of breath or wheezing) 30 Days Qty: 8.5 0RF fluticasone propionate [Flonase Allergy Relief] 50 mcg/actuation spray,suspension 1 spray intranasal BID Qty: 16 0RF Rx Instructions: administer into each nostril (DME) Aerochamber Plus Z Stat Spacer See Rx Instructions .Route Qty: 1 0RF Rx Instructions: As directed omeprazole 40 mg capsule,delayed release(DR/EC) 40 mg PO DAILY Qty: 30 0RF atenolol 100 mg tablet 100 mg PO DAILY Qty: 30 0RF omeprazole 40 mg capsule,delayed release(DR/EC) 40 mg PO DAILY Qty: 30 0RF atenolol 100 mg tablet 100 mg PO DAILY Qty: 30 0RF methylprednisolone [Medrol (Vega)] 4 mg tablets,dose pack See Rx Instructions PO .COMPLEX Qty: 21 0RF Rx Instructions: orally per package directions fluticasone propionate [24 Hour Allergy Relief] 50 mcg/actuation spray,suspension 2 spray intranasal DAILY Qty: 16 0RF Rx Instructions: administer into each nostril omeprazole 20 mg capsule,delayed release(DR/EC) 40 mg PO DAILY 14 Days Qty: 28 0RF cyclobenzaprine 10 mg tablet 10 mg PO BID PRN (Reason: muscle spasm) Qty: 14 0RF promethazine 25 mg tablet 25 mg PO TID PRN (Reason: nausea and vomiting) Qty: 20 0RF metronidazole 500 mg tablet 500 mg PO Q8H 10 Days Qty: 30 0RF ciprofloxacin HCl 500 mg tablet 500 mg PO Q12H 10 Days Qty: 20 0RF omeprazole 40 mg capsule,delayed release(DR/EC) 40 mg PO DAILY Qty: 30 0RF ferrous sulfate 325 mg (65 mg iron) tablet 325 mg PO DAILY Qty: 90 1RF escitalopram oxalate [Lexapro] 20 mg tablet 20 mg PO DAILY Qty: 30 5RF Follow-up/Referrals: Maine Johnson DO [Physician] - Stand Alone Forms: Work/School Release IP Time of Disposition: 10:15
== END 2025-01-31 10:30 | disposition home or self-care (01) ==
DX: T81.89XA Other complications of procedures, not elsewhere classified, initial encounter (principal); Z98.818 Other dental procedure status; Z76.0 Encounter for issue of repeat prescription; I10 Essential (primary) hypertension; I25.10 Atherosclerotic heart disease of native coronary artery without angina pectoris; R73.03 Prediabetes; K21.9 Gastro-esophageal reflux disease without esophagitis; I25.2 Old myocardial infarction; F41.9 Anxiety disorder, unspecified; F32.A Depression, unspecified; Z98.84 Bariatric surgery status; Z87.891 Personal history of nicotine dependence
CPT/HCPCS: 99213; G0463

== ENCOUNTER 2025-02-13 11:53 | Emergency (ER) | payer OTHER, SELFPAY ==
--- NOTE | ~2025-02-13 | CT_ITS ---
CT chest abdomen pelvis wo con Ordering provider: Nicholas Carter MD History: . chest, epigastric and LLQ pain . Comparison: January 15, 2025 Technique: CT chest without IV contrast. CT abdomen and pelvis without oral and IV contrast. FINDINGS: The study is limited due to lack of IV contrast. CHEST: --VISUALIZED THORACIC INLET: Normal as visualized. --MEDIASTINUM: Aorta/coronary arteries: The thoracic aorta is normal. Heart/other: The heart is not enlarged. Lymph nodes: No mediastinal or hilar adenopathy. --LUNGS: No pulmonary nodules or masses. No infiltrates or effusions. No pneumothorax. Dependent atel ectatic changes. --MUSCULOSKELETAL: Soft tissues: The superficial soft tissues are normal. Bones: Age appropriate degenerative changes of the spine. ABDOMEN/PELVIS: --MUSCULOSKELETAL: Bones: Age appropriate degenerative changes of the spine. Superficial soft tissues: Bilateral fat containing inguinal hernias. Otherwise, The superficial soft tissues are normal. --UPPER ABDOMINAL ORGANS: Liver: Normal. Gallbladder: Status post cholecystectomy. Spleen: Normal. Stomach/duodenum: Normal. Pancreas: Normal. Adrenals: Normal. Kidneys: Tiny stones in the right kidney upper and mid pole. Tiny stone in the left kidney upper pole. Bilateral --PELVIC ORGANS: The bladder is underfilled with thickened wall. Evaluation for cystitis advised.. No bladder stones. --BOWEL AND MESENTERY: Colon: No evidence of diverticulitis. Thickened wall of the sigmoid colon is seen unchanged which may indicate infiltrative process versus a mass versus colitis. Sigmoidoscopy is advised. Normal appendi x. Small Bowel: Normal. No obstruction. Peritoneum/mesentery: No free air or free fluid. No mesenteric lymphadenopathy. --RETROPERITONEUM: Mild atheromatous disease of the abdominal aorta. No retroperitoneal lymphadenop athy. Para-aortic lymph nodes are seen with the largest measures 1.3 cm. IMPRESSION: CHEST: 1. No acute cardiopulmonary pathology. ABDOMEN/PELVIS: 1. Bilateral kidney stones. 2. Underfilled urinary bladder with slightly 6 thickened wall. Evaluation for cystitis advised. 3. Unchanged thickened sigmoid colon. Differential as described above. Sigmoidoscopy is advised. 4. Bilateral fat containing inguinal hernias. Reviewed, dictated and finalized at location A. IMPRESSION: CHEST: 1. No acute cardiopulmonary pathology. ABDOMEN/PELVIS: 1. Bilateral kidney stones. 2. Underfilled urinary bladder with slightly 6 thickened wall. Evaluation for cystitis advised. 3. Unchanged thickened sigmoid colon. Differential as described above. Sigmoid oscopy is advised. 4. Bilateral fat containing inguinal hernias.
[2025-02-13 11:55] VITALS: BP 153/81; PULSE 64; RESP 16; TEMP 36.6; O2SAT 98
--- OUTSIDE RECORDS SUMMARY | 2025-02-13 11:55 | XMS_ITS | Patient Health Record ---
Author Organization [facility] Address [address] [address] Care Team Providers Care Fax Machine Operator Name Role Phone Charanjit Sheffield Primary Care [...] Once a day for 30 days Active Mbxbvwud-Hvixknklv-Ibfileqr 0.1 % 1 application into the lower [...] Problem Status W/U Status Risk Notes Problem 303942134035 Type 2 diabetes mellitus with other specified complication (E11.69) Active confirmed Problem 730704774 Mixed hyperlipidemia (E78.2) Active confirmed Problem 522600193 Nausea (R11.0) Active confirmed Problem 16390886 Anxiety (F41.9) Active confirmed Problem 742148875 Gastroesophageal reflux disease without esophagitis (K21.9) Active confirmed Problem 661192626 Mild intermitten t asthma without complication (J45.20) Active confirmed Problem 31666868 Essential hypertension (I10) Active confirmed Problem 782464153 Vertigo (R42) Active confirmed Problem 04872112 Neck pain (M54.2) Active confirmed Problem Abdominal pain (74504239) Abdominal pain (R10.9) Active confirmed Problem Depression (064129710) Depression (F32.9) Active confirmed Problem 940295072 Cervical spondylosis (M47.812) Active confirmed Problem Pain in right arm (980780221) Right arm pain (M79.601) Active confirmed Problem 048964335 Type 2 diabetes mellitus without complication, without long-term current use of insulin (E11.9) Active confirmed Problem History of gastrointestinal disease (408983859) History of diverticulosis (Z87.19) Active confirmed Problem 51106556 Allergic rhiniti s due to other allergic trigger, unspecified seasonality (J30.89) Active confirmed Problem 224068525 S/P cholecystectomy (Z90.49) Active confirmed Problem 59118177 Recurrent major depressive disorder, in partial remission (F33.41) Active confirmed Problem 85102885 Non-seasonal allergic rhinitis, unspecified trigger (J30.89) Active confirmed Problem 535345178 Elevated LFTs (R79.89) Active confirmed Problem 68608347 Discomfort of le ft eye (H57.12) Active confirmed Plan Of Treatment No Information Insurance Providers Payer Name Payer Address Payer Phone Subscriber Number Group Number Insured Name Patient Relationship to Insured Coverage Start Date Coverage End Date [address] [id number] WADE KELLY Self - patient is the insured 9 Medical (General) History Medical History History ICD Code sinusitis Vertigo Asthma Sleep Apnea diverticulitis fatty liver 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
--- OUTSIDE RECORDS SUMMARY | 2025-02-13 11:56 | XMS_ITS | Clinical Summary ---
Author Organization [facility] Address [address] [place] [address] Phone Care Team Providers Care Governor Assembler Name Role Phone Unavailable Primary Care [...]
--- OUTSIDE RECORDS SUMMARY | 2025-02-13 11:56 | XMS_ITS | Patient Health Record ---
Author Organization [facility] Address [address] Gillespie [address] [place] [id number] Reason For Referral No Information Plan Of Treatment No Information
--- NOTE | 2025-02-13 12:42 | ED_ITS ---
HPI - General Adult General Chief complaint: Abdominal Pain Stated complaint: LOWER ABD PAIN, HX DIVERTICULITIS Time Seen by Provider: 02/13/25 12:36 History of Present Illness HPI narrative: 55-year-old male present to the emergency department for evaluation for reportedly 5 weeks of mid abdominal pain that does radiate to his left quadrant. Patient reports he does have a prior history diverticulosis and diverticulitis. Patient also does report prior history of left lower quadrant mass. Patient reports he has also had some recent issues with constipation but prefers not to take MiraLax but has been attempting apple juice to help with constipation. Patient reports he did have multiple bowel movements today. 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 Related Data Home Medications ?Medication ?Instructions ?Recorded ?Confirmed ?Last Taken ?Type potassium chloride 10 mEq 10 meq PO DAILY 06/09/23 07/26/24 08/18/24 History tablet,extended release omeprazole 40 mg capsule,delayed 40 mg PO DAILY 04/22/24 08/29/24 08/18/24 History release atenolol 50 mg tablet 50 mg PO Q24H 08/29/24 08/29/24 Unknown History Allergies Allergy/AdvReac Type Severity Reaction Status Date / Time Iodinated Contrast Media Allergy Severe Anaphylaxis Verified 02/13/25 11:54 metformin Allergy Severe Stopped Verified 02/13/25 11:54 Breathing Sulfa (Sulfonamide Allergy Severe Anaphylaxis Verified 02/13/25 11:54 Antibiotics) sulfamethoxazole Allergy Severe Anaphylaxis Verified 02/13/25 11:54 famotidine Allergy Intermediate Hives Verified 02/13/25 11:54 losartan Allergy Intermediate SWLLEING Verified 02/13/25 11:54 LIP AND HIVES nebivolol Allergy Intermediate LIP Verified 02/13/25 11:54 SWELLING Quinolones Allergy Intermediate Nervousness Verified 02/13/25 11:54 valsartan Allergy Intermediate HIVES/SOB Verified 02/13/25 11:54 amlodipine Allergy Mild HIVES Verified 02/13/25 11:54 azithromycin Allergy Mild Nervousness Verified 02/13/25 11:54 pantoprazole Allergy Mild Hives Verified 02/13/25 11:54 spironolactone Allergy Mild RASH AND Verified 02/13/25 11:54 ITCHING trimethoprim Allergy Mild RASH Verified 02/13/25 11:54 morphine Allergy Unknown Verified 02/13/25 11:54 cephalexin AdvReac Mild Nervousness Verified 02/13/25 11:54 flavoxate AdvReac Mild Nervousness Verified 02/13/25 11:54 levofloxacin AdvReac Mild Nervousness Verified 02/13/25 11:54 lidocaine AdvReac Mild Nervousness Verified 02/13/25 11:54 lisinopril AdvReac Mild Nervousness Verified 02/13/25 11:54 nitrofurantoin AdvReac Mild Nervousness Verified 02/13/25 11:54 oxycodone AdvReac Mild Nervousness Verified 02/13/25 11:54 paroxetine AdvReac Mild Nervousness Verified 02/13/25 11:54 Review of Systems 2 Review of Systems: All systems reviewed & are unremarkable except as noted in HPI and below PMFSH Past Medical History Medical History Prediabetes Allergic rhinitis Chronic sinusitis Chronic post-traumatic stress disorder (PTSD) Anxiety Depression GERD (gastroesophageal reflux disease) Sleep apnea Asthma HTN (hypertension) CAD (coronary artery disease) history NV Concussion Surgical History Surgical History H/O gastric bypass Hx of cholecystectomy History of cardiac cath History of colonoscopy Family History Family History Grandparent Family history of obesity Hypertension Diabetes mellitus Mother Depression Patient's mother is in good health Family history of mental disorder Father Hypertension Patient's father is in good health Family history of alcoholism Cerebrovascular accident Sibling Patient's sister is in good health Patient's brother is in good health Father Cerebrovascular accident Alcoholism Hypertension Heart disease Mother Family history of malignant neoplasm Depression Hypertension Other Family history of cardiovascular disease Social History Social History Smoking status: Former smoker Smoking end date: 09/13/95 Alcohol intake: former Substance use: never Substance use type: opiates Lack of Transportation: No Lack of Food: Never True Current Housing: I Have Housing Concerned About Future Housing: No Difficulty Paying Gas/Electric Bills: No Difficulty Paying for Meds: No Currently Unemployed: No Education: Master's Degree or Higher Difficulty w/ Childcare or Family Care: No Living arrangements: alone Occupation/Education: occupation Gender identity (if verbalized by the patient): Male Sexual Orientation (if Verbalized by the Patient): Straight or Heterosexual Spiritual care concerns: No Exam 2 Narrative: APPEARANCE: Well appearing, no pain, no distress, well-nourished. HEAD: normocephalic, atraumatic. EYES: PERRLA/EOMI, conjunctivae clear. NOSE: Normal no drainage EARS:TMS clear with good light reflex. THROAT: Pharynx clear, no exudate. NECK: Supple. No adenopathy, no masses. RESPIRATORY: Airway patent, respirations nonlabored. Clear to auscultation bilaterally, no rales, rhonchi, wheezing. CARDIOVASCULAR: Regular rate and rhythm without murmurs rubs or gallops. ABDOMINAL: Soft, no tenderness to palpation, nondistended, normal bowel sounds. MUSCULOSKELETAL: Moves all extremities. Strength/ROM intact, No edema, No calf tenderness. NEURO: Alert. Cranial nerves II through XII intact. Good gait. Good coordination SKIN: Warm, dry. Normal Color Course Vital Signs Vital signs: Vital Signs Temperature 97.9 F 02/13/25 11:55 Pulse Rate 64 02/13/25 11:55 Respiratory Rate 16 02/13/25 11:55 Blood Pressure 153/81 H 02/13/25 11:55 Pulse Oximetry 98 02/13/25 11:55 Oxygen Delivery Room Air 02/13/25 11:55 Temperature 97.9 F 02/13/25 11:55 Pulse Rate 58 L 02/13/25 15:23 Respiratory Rate 18 02/13/25 15:23 Blood Pressure 171/81 H 02/13/25 15:23 Pulse Oximetry 100 02/13/25 15:23 Oxygen Delivery Room Air 02/13/25 11:55 Medical Decision Making [facility] Narrative Medical decision making narrative: 55-year-old male presents emergency department for evaluation for chronic abdominal pain. Patient is currently afebrile with no leukocytosis hemoglobin 11.5. Patient has no acute abnormalities on his CMP, lactic acid is not elevated. Troponin was negative. Lipase was negative. UA shows no underlying evidence of infection. CT was ordered due to the patient stating that his pain was continued worsened that shows no acute abnormalities. Patient was strongly encouraged to continue have follow-up with his primary care physician and with GI. All questions concerns were addressed. Patient was not started on any antibiotics due to lack of findings acute infection. Patient was unhappy with his care as he felt he should but discharged home with antibiotics. Differential Diagnosis Differential Diagnosis: Colitis, diverticulitis, ACS, pancreatitis, gastritis Vital Signs Vital Signs: Vital Signs Temperature 97.9 F 02/13/25 11:55 Pulse Rate 64 02/13/25 11:55 Respiratory Rate 16 02/13/25 11:55 Blood Pressure 153/81 H 02/13/25 11:55 Pulse Oximetry 98 02/13/25 11:55 Oxygen Delivery Room Air 02/13/25 11:55 Temperature 97.9 F 02/13/25 11:55 Pulse Rate 58 L 02/13/25 15:23 Respiratory Rate 18 02/13/25 15:23 Blood Pressure 171/81 H 02/13/25 15:23 Pulse Oximetry 100 02/13/25 15:23 Oxygen Delivery Room Air 02/13/25 11:55 Lab Data Lab results reviewed: Yes I reviewed the patient's lab results. 02/13/25 12:46 02/13/25 12:46 Labs: Lab Results 02/13/25 Range/Units 12:46 WBC 5.7 (4.5-10.0) K/mm3 RBC 5.67 (4.6-6.20) M/mm3 Hgb 11.5 L (14.0-18.0) g/dL Hct 40.0 L (42.0-52.0) % MCV 70.5 L (80-100) fl MCH 20.3 L (26-34) pg MCHC 28.8 L (32-36) g/dl RDW 18.8 H (11.5-14.5) % Plt Count 160 (150-375) k/mm3 MPV 9.3 (7.4-10.4) fl Immature Gran % (Auto) 0.2 (0-0.5) % Neut % (Auto) 65.3 (45.5-73.1) % Lymph % (Auto) 25.6 (18.3-44.2) % [place] % (Auto) 6.1 (2.6-8.5) % Eos % (Auto) 2.1 (0-4.4) % Baso % (Auto) 0.7 (0.2-1.2) % Lymph # (Auto) 1.46 (0.9-3.2) K/mm3 [place] # (Auto) 0.4 (0.1-0.6) K/mm3 Eos # (Auto) 0.1 (0-0.3) K/mm3 Baso # (Auto) 0.0 (0.0-0.1) K/mm3 Abs Immat Gran (auto) 0.01 (0.00-0.031) K/mm3 Absolute Neuts (auto) 3.7 (1.3-6.7) K/mm3 Absolute Nucleated RBC 0.000 (0.0-0.012) K/mm3 Nucleated RBC % 0.0 (0.0-0.2) % PT 14.3 (11.1-14.7) Seconds INR 1.1 APTT 36.8 (22.3-36.8) Seconds Sodium 141 (137-145) mmol/L Potassium 3.7 (3.4-5.0) mmol/L Chloride 103 (98-107) mmol/L Carbon Dioxide 28 (22-30) mmol/L Anion Gap 10 (4-12) mmol/L BUN 9 (9-20) mg/dL Creatinine 0.95 (0.7-1.3) mg/dL Estim Creat Clear Calc 111 ml/min Estimated GFR > 60 (59 - ) Glucose 102 (65-110) mg/dL Lactic Acid 1.1 (0.7-2.0) mmol/L Calcium 9.2 (8.4-10.2) mg/dL Total Bilirubin 1.6 H (0.2-1.3) mg/dL AST 44 (17-59) U/L ALT 34 (6-50) U/L Alkaline Phosphatase 54 (38-126) U/L Troponin I < 0.012 (0.000-0.034) ng/mL Total Protein 8.1 (6.3-8.2) g/dL Albumin 4.6 (3.5-5.1) g/dL Lipase 87 (23-300) U/L Urine Color Yellow (Yellow) Urine Appearance Clear (Clear) Urine pH 5.5 (5.0-9.0) Ur Specific [place] 1.006 (1.001-1.035) Urine Protein Negative (Negative) mg/dL Urine Glucose (UA) Negative (Negative) mg/dL Urine Ketones Negative (Negative) mg/dL Ur Blood (Man) Negative (Negative) Urine Nitrate Negative (Negative) Urine Bilirubin Negative (Negative) Urine Urobilinogen 0.2 (<2.0) mg/dL Leukocyte Esterase Rfl Negative (Negative) KENNY/UL Imaging Data Radiologist's impression: Impressions Chest/Abdomen/Pelvis CT 02/13/25 15:06 IMPRESSION: CHEST: 1. No acute cardiopulmonary pathology. ABDOMEN/PELVIS: 1. Bilateral kidney stones. 2. Underfilled urinary bladder with slightly 6 thickened wall. Evaluation for cystitis advised. 3. Unchanged thickened sigmoid colon. Differential as described above. Sigmoidoscopy is advised. 4. Bilateral fat containing inguinal hernias. Discharge Plan Discharge Clinical Impression: Abdominal pain Patient Disposition: Home Condition: Stable Instructions: Antibiotic Form, Abdominal Pain (ED) Additional Instructions: Continue to have close follow-up with your physicians at [facility]. If you have any worsening symptoms or if you have any questions or concerns then please call or return to the emergency department. Patient Language: Fijian Prescriptions: No Action potassium chloride 10 mEq tablet extended release 10 meq PO DAILY omeprazole 40 mg capsule,delayed release(DR/EC) 40 mg PO DAILY atenolol 50 mg tablet 50 mg PO Q24H Patient Comments: PT STATES HE IS NOW TAKING 100MG PO DAULY omeprazole 40 mg capsule,delayed release(DR/EC) 40 mg PO DAILY 30 Days Qty: 30 0RF atenolol 100 mg tablet 100 mg PO DAILY 30 Days Qty: 30 0RF omeprazole 40 mg capsule,delayed release(DR/EC) 40 mg PO DAILY 30 Days Qty: 30 0RF albuterol sulfate 90 mcg/actuation HFA aerosol inhaler 2 puff inhalation Q4-6H PRN (Reason: shortness of breath or wheezing) 30 Days Qty: 8.5 0RF fluticasone propionate [Flonase Allergy Relief] 50 mcg/actuation spray,suspension 1 spray intranasal BID Qty: 16 0RF Rx Instructions: administer into each nostril (DME) Aerochamber Plus Z Stat Spacer See Rx Instructions .Route Qty: 1 0RF Rx Instructions: As directed omeprazole 40 mg capsule,delayed release(DR/EC) 40 mg PO DAILY Qty: 30 0RF atenolol 100 mg tablet 100 mg PO DAILY Qty: 30 0RF omeprazole 40 mg capsule,delayed release(DR/EC) 40 mg PO DAILY Qty: 30 0RF atenolol 100 mg tablet 100 mg PO DAILY Qty: 30 0RF methylprednisolone [Medrol (Vega)] 4 mg tablets,dose pack See Rx Instructions PO .COMPLEX Qty: 21 0RF Rx Instructions: orally per package directions fluticasone propionate [24 Hour Allergy Relief] 50 mcg/actuation spray,suspension 2 spray intranasal DAILY Qty: 16 0RF Rx Instructions: administer into each nostril amoxicillin-pot clavulanate 875-125 mg tablet 1 tablet PO Q12H 7 Days Qty: 14 0RF atenolol 100 mg tablet 100 mg PO DAILY Qty: 30 0RF omeprazole 20 mg capsule,delayed release(DR/EC) 40 mg PO DAILY 14 Days Qty: 28 0RF cyclobenzaprine 10 mg tablet 10 mg PO BID PRN (Reason: muscle spasm) Qty: 14 0RF promethazine 25 mg tablet 25 mg PO TID PRN (Reason: nausea and vomiting) Qty: 20 0RF metronidazole 500 mg tablet 500 mg PO Q8H 10 Days Qty: 30 0RF ciprofloxacin HCl 500 mg tablet 500 mg PO Q12H 10 Days Qty: 20 0RF omeprazole 40 mg capsule,delayed release(DR/EC) 40 mg PO DAILY Qty: 30 0RF ferrous sulfate 325 mg (65 mg iron) tablet 325 mg PO DAILY Qty: 90 1RF escitalopram oxalate [Lexapro] 20 mg tablet 20 mg PO DAILY Qty: 30 5RF Follow-up/Referrals: PHYSICIAN,SPLICER HELPER [Primary Care Provider] -
[2025-02-13] MEDS: SODIUM CHLORIDE 0.9% IV 1,000 ML 999 ML IV CONT (12:49)
[2025-02-13 13:00] LABS: Basophils Percent Auto 0.7 % (0.2-1.2); Eosinophils Absolute Auto 0.1 K/mm3 (0-0.3); Eosinophils Percent Auto 2.1 % (0-4.4); Hemoglobin 11.5 g/dL (14.0-18.0); Immature Granulocyte Absolute 0.01 K/mm3 (0.00-0.031); Immature Granulocyte Percent A 0.2 % (0-0.5); Lymphocytes Absolute Auto 1.46 K/mm3 (0.9-3.2); Lymphocytes Percent Auto 25.6 % (18.3-44.2); Mean Corpuscular HGB Conc 28.8 g/dl (32-36); Mean Corpuscular Hemoglobin 20.3 pg (26-34); Mean Corpuscular Volume 70.5 fl (80-100); Mean Platelet Volume 9.3 fl (7.4-10.4); Monocytes Absolute Auto 0.4 K/mm3 (0.1-0.6); Monocytes Percent Auto 6.1 % (2.6-8.5); Neutrophils Absolute Auto 3.7 K/mm3 (1.3-6.7); Neutrophils Percent Auto 65.3 % (45.5-73.1); Platelet Count Result 160 k/mm3 (150-375); Red Blood Count 5.67 M/mm3 (4.6-6.20); Red Cell Distribution Width 18.8 % (11.5-14.5); White Blood Count 5.7 K/mm3 (4.5-10.0)
[2025-02-13 13:01] LABS: Add Urine Microscopic? NO; Appearance Urine Clear (Clear); Bilirubin Urine Negative (Negative); Blood Urine Negative (Negative); Color Urine Yellow (Yellow); Glucose Urine UA Negative (Negative); Ketones Urine Negative (Negative); Leukocyte Esterase Ur Negative LEU/UL (Negative); Nitrate Urine Negative (Negative); Protein Urine Negative (Negative); Specific Grav Ur 1.006 (1.001-1.035); Urobilinogen Urine 0.2 mg/dL (<2.0); pH Urine 5.5 (5.0-9.0)
--- OUTSIDE RECORDS SUMMARY | 2025-02-13 13:06 | XMS_ITS | Clinical Summary ---
Author Organization [facility] Address [address] [place] [address] Phone Care Team Providers Care Senior Windows Administrator Name Role Phone Unavailable Primary Care [...]
[2025-02-13 13:10] LABS: Alanine Aminotransferase 34 U/L (6-50); Albumin Level 4.6 g/dL (3.5-5.1); Alkaline Phosphatase 54 U/L (38-126); Anion Gap 10 mmol/L (4-12); Aspartate Amino Transferase 44 U/L (17-59); Bilirubin,Total 1.6 mg/dL (0.2-1.3); Blood Urea Nitrogen 9 mg/dL (9-20); Calcium 9.2 mg/dL (8.4-10.2); Carbon Dioxide 28 mmol/L (22-30); Chloride 103 mmol/L (98-107); Estimated CRCL calculation 111 ml/min; Estimated Glomerular Filt Rate > 60; Glucose 102 mg/dL (65-110); Lactic Acid Reflex 1.1 mmol/L (0.7-2.0); Lipase 87 U/L (23-300); Potassium 3.7 mmol/L (3.4-5.0); Sodium 141 mmol/L (137-145); Total Protein 8.1 g/dL (6.3-8.2)
[2025-02-13 13:51] LABS: INR 1.1; Prothrombin Time 14.3 Seconds (11.1-14.7)
[2025-02-13 13:52] LABS: Partial Thromboplastin Time 36.8 Seconds (22.3-36.8)
[2025-02-13] MEDS: MAG HYDROX/AL HYDROX/SIMETH 30 ML UDC PO (13:55)
--- NOTE | 2025-02-13 14:01 | ECG_ITS ---
Test Date: 2025-02-13 14:05:44 Measurements Intervals [place] Rate: 59 P: 50 CO: 171 QRS: 23 QRSD: 104 T: 11 QT: 390 QTc: 389 Interpretive Statements SINUS BRADYCARDIA BASELINE ARTIFACT- I, III, AVR, AVL, AVF, V2 BORDERLINE ECG Compared to ECG 01/15/2025 23:31:09 HEART RATE HAS DECREASED Electronically Signed On 02-13-2025 15:43:58 CDT by Yonathan Ross D.O.
[2025-02-13 14:55] LABS: Troponin I < 0.012 ng/mL (0.000-0.034)
[2025-02-13 15:23] VITALS: BP 171/81; PULSE 58; RESP 18; O2SAT 100
--- NOTE | 2025-02-13 15:52 | PC.NURSE ---
Patient dissatisfied with care and staff. Patient argumentative in room regarding discharge and discharge process. Patient told he can utilize portal to see test results. Patient reminded that we ruled out any life threats or conditions needing surgical intervention today. Patient offered Danni's card and he declined. Patient escorted to lobby by this RN.
== END 2025-02-13 16:07 | disposition home or self-care (01) ==
PROVIDERS: Emergency Provider Emergency Medicine
DX: R10.30 Lower abdominal pain, unspecified (principal); Z87.891 Personal history of nicotine dependence
CPT/HCPCS: 36415; 71250; 74176; 80053; 81003; 83605; 83690; 84484; 85025; 85610; 85730; 93005; 96360; 99284; A9270; J7030

== ENCOUNTER 2025-02-16 10:31 | Emergency (ER) | payer OTHER, SELFPAY ==
--- NOTE | 2025-02-16 10:40 | ED_ITS ---
HPI - Male Genitourinary General Chief complaint: Urogenital-Male Stated complaint: UTI Source: patient, RN notes reviewed and old records reviewed Mode of arrival: ambulatory Limitations: no limitations History of Present Illness HPI Narrative: 55-year-old male presents to the [facility] with complaints of urinary frequency. States that it started yesterday. Patient was concerned to see was seen in the ER 3 days ago Patient at 1st denied any other symptoms but then stated that he had some burning when he woke up this morning, sweating last night. Also reports he may have had some flank pain. States that he did take azo prior to arrival Onset (ago): day(s) (1) Related Data Home Medications ?Medication ?Instructions ?Recorded ?Confirmed ?Last Taken ?Type potassium chloride 10 mEq 10 meq PO DAILY 06/09/23 07/26/24 08/18/24 History tablet,extended release omeprazole 40 mg capsule,delayed 40 mg PO DAILY 04/22/24 08/29/24 08/18/24 History release atenolol 50 mg tablet 50 mg PO Q24H 08/29/24 08/29/24 Unknown History Allergies Allergy/AdvReac Type Severity Reaction Status Date / Time Iodinated Contrast Media Allergy Severe Anaphylaxis Verified 02/13/25 11:54 metformin Allergy Severe Stopped Verified 02/13/25 11:54 Breathing Sulfa (Sulfonamide Allergy Severe Anaphylaxis Verified 02/13/25 11:54 Antibiotics) sulfamethoxazole Allergy Severe Anaphylaxis Verified 02/13/25 11:54 famotidine Allergy Intermediate Hives Verified 02/13/25 11:54 losartan Allergy Intermediate SWLLEING Verified 02/13/25 11:54 LIP AND HIVES nebivolol Allergy Intermediate LIP Verified 02/13/25 11:54 SWELLING Quinolones Allergy Intermediate Nervousness Verified 02/13/25 11:54 valsartan Allergy Intermediate HIVES/SOB Verified 02/13/25 11:54 amlodipine Allergy Mild HIVES Verified 02/13/25 11:54 azithromycin Allergy Mild Nervousness Verified 02/13/25 11:54 pantoprazole Allergy Mild Hives Verified 02/13/25 11:54 spironolactone Allergy Mild RASH AND Verified 02/13/25 11:54 ITCHING trimethoprim Allergy Mild RASH Verified 02/13/25 11:54 morphine Allergy Unknown Verified 02/13/25 11:54 cephalexin AdvReac Mild Nervousness Verified 02/13/25 11:54 flavoxate AdvReac Mild Nervousness Verified 02/13/25 11:54 levofloxacin AdvReac Mild Nervousness Verified 02/13/25 11:54 lidocaine AdvReac Mild Nervousness Verified 02/13/25 11:54 lisinopril AdvReac Mild Nervousness Verified 02/13/25 11:54 nitrofurantoin AdvReac Mild Nervousness Verified 02/13/25 11:54 oxycodone AdvReac Mild Nervousness Verified 02/13/25 11:54 paroxetine AdvReac Mild Nervousness Verified 02/13/25 11:54 Review of Systems Review of Systems: All systems reviewed & are unremarkable except as noted in HPI and below Constitutional: Constitutional: Reports no additional constitutional complaints ENT: Reports system reviewed and no additional complaints, except as documented Cardiovascular: Cardiovascular: Reports no additional cardiovascular complaints, Denies chest pain and Denies dyspnea Respiratory: Respiratory: Reports no additional respiratory complaints, Denies chest congestion, Denies cough and Denies dyspnea Genitourinary: Genitourinary: Reports as per HPI and Reports urinary frequency Musculoskeletal: Musculoskeletal: Reports no additional musculoskeletal complaints Integumentary/Breasts: Skin/Breast: Reports system reviewed and no additional complaints, except as docu PMFSH Past Medical History Medical History Prediabetes Allergic rhinitis Chronic sinusitis Chronic post-traumatic stress disorder (PTSD) Anxiety Depression GERD (gastroesophageal reflux disease) Sleep apnea Asthma HTN (hypertension) CAD (coronary artery disease) history [place] [facility] Surgical History Surgical History H/O gastric bypass Hx of cholecystectomy History of cardiac cath History of colonoscopy Family History Family History Grandparent Family history of obesity Hypertension Diabetes mellitus Mother Depression Patient's mother is in good health Family history of mental disorder Father Hypertension Patient's father is in good health Family history of alcoholism Cerebrovascular accident Sibling Patient's sister is in good health Patient's brother is in good health Father Cerebrovascular accident Alcoholism Hypertension Heart disease Mother Family history of malignant neoplasm Depression Hypertension Other Family history of cardiovascular disease Social History Social History (Reviewed 02/16/25 @ 16:07 by PHILOMENA Buenrostro Smoking status: Former smoker Smoking end date: 09/13/95 Alcohol intake: former Substance use: never Substance use type: opiates Lack of Transportation: No Lack of Food: Never True Current Housing: I Have Housing Concerned About Future Housing: No Difficulty Paying Gas/Electric Bills: No Difficulty Paying for Meds: No Currently Unemployed: No Education: Master's Degree or Higher Difficulty w/ Childcare or Family Care: No Living arrangements: alone Occupation/Education: occupation Gender identity (if verbalized by the patient): Male Sexual Orientation (if Verbalized by the Patient): Straight or Heterosexual Spiritual care concerns: No Comments At the time of my signature, I reviewed and agree with the nursing past medical, surgical, social, and family history. There is no relevant family history pertinent to the patient complaint. Exam Const: General: cooperative, healthy appearing, comfortable, no acute distress, well developed, alert and well nourished Nutritional Appearance: well nourished Orientation/consciousness: patient oriented x3 Limitations: no limitations HENMT: Head: normal to inspection Eyes: General: appearance normal, both eyes and all related structures Alignment and Position: alignment normal Neck: Neck: normal visual inspection, full ROM, no lymphadenopathy and no meningeal signs Chest: Chest palpation & inspection: normal inspection of the chest Resp: Effort & Inspection: normal respiratory effort and able to speak in complete sentences Cardio: Rate: regular rate Skin: General skin exam: normal color and no rashes or lesions noted Neuro: General: patient oriented x3, gait normal, moves all extremities and no meningeal signs Cognition (Neuro): normal cognition Speech: normal speech Gait exam (Neuro): Normal gait present Extrem: General: normal to inspection, full ROM, capillary refill normal and normal gait Psych: Appearance: grossly normal and well kempt Mental Status: mental status grossly normal Speech and movement: Normal speech and movement present and Clear speech present Affect: normal affect Attitude: cooperative Course Course Level of Care: Express Care Visit Vital Signs Vital signs: Vital Signs Temperature 97.1 F L 02/16/25 10:42 Pulse Rate 58 L 02/16/25 10:42 Respiratory Rate 16 02/16/25 10:42 Blood Pressure 161/88 H 02/16/25 10:42 Pulse Oximetry 100 02/16/25 10:42 Oxygen Delivery Room Air 02/16/25 10:42 Temperature 97.1 F L 02/16/25 10:42 Pulse Rate 58 L 02/16/25 10:42 Respiratory Rate 16 02/16/25 10:42 Blood Pressure 161/88 H 02/16/25 10:42 Pulse Oximetry 100 02/16/25 10:42 Oxygen Delivery Room Air 02/16/25 10:42 Reviewed MDM - Male Genitourinary MDM Narrative Medical decision making narrative: Patient is sitting in exam room. Patient is well-known to clinic. Patient presents with 1 day history of urinary frequency. Patient did take azo prior to arrival, urine leukocytes on test strip was negative. Will culture. Patient originally presented with complaints of urinary frequency, 10 times an hour yesterday. Discussed that urine did not have bacteria in his urine, started stating that he was having flank pain. Patient is also verbalizing that he is extremely upset over the care he received in the ER. States ?they marked me ?and cannot receive the care that he needs. Patient is upset that his GI doctor and primary care doctors will not see him. Offered patient advocate number. Patient states ?I have her card and also stated that they won't do anything. Encourage patient to actually see a primary care provider for a evaluation of his blood pressure, chronic concerns. Discussed the importance of following up with GI for his chronic issues. Discussed labs from 3 days ago in the ER to include normal white count, urine was clean. Patient became upset that we will not prescribe an antibiotic for him stating ?I know my body. ? Discharge instructions reviewed with patient, as well as provided in writing per nursing staff. The instructions also include specific and strict return/GO TO THE ER as well as f/u information. All questions have been answered, and the patient deny any further questions with discharge and discharge plan. Some parts of this dictation were generated by voice recognition software and may contain typographical and/or grammatical inaccuracies. Differential Diagnosis Differential diagnosis: Likely urinary tract infection and other (Dysuria, prostate issues, chronic colitis,) Medical Records Attestation: I reviewed the patient's medical records. Lab Data Labs: Due to patient taking azo, dip for leukocytes, none seen on strip. Sending for culture for further evaluation Critical Care Time Critical Care Time Critical Care Time: No Discharge Plan Discharge Clinical Impression: Dysuria Patient Disposition: Home Condition: Stable Instructions: Dysuria (ED) Additional Instructions: Today your blood pressure was elevated. Please follow-up with your primary care provider within 2 weeks to have this rechecked. Your blood pressure was 161/88. Increased water intake Take Tylenol as needed for pain Your urine will be sent to our lab for a culture. If at that time a bacteria grows that is not covered by the antibiotic prescribed you will be notified. Follow-up with primary care For new or worsening symptoms go directly to the emergency room Patient Language: Georgian Prescriptions: No Action potassium chloride 10 mEq tablet extended release 10 meq PO DAILY omeprazole 40 mg capsule,delayed release(DR/EC) 40 mg PO DAILY atenolol 50 mg tablet 50 mg PO Q24H Patient Comments: PT STATES HE IS NOW TAKING 100MG PO DAULY albuterol sulfate 90 mcg/actuation HFA aerosol inhaler 2 puff inhalation Q4-6H PRN (Reason: shortness of breath or wheezing) 30 Days Qty: 8.5 0RF fluticasone propionate [Flonase Allergy Relief] 50 mcg/actuation spray,suspension 1 spray intranasal BID Qty: 16 0RF Rx Instructions: administer into each nostril (DME) Aerochamber Plus Z Stat Spacer See Rx Instructions .Route Qty: 1 0RF Rx Instructions: As directed atenolol 100 mg tablet 100 mg PO DAILY Qty: 30 0RF atenolol 100 mg tablet 100 mg PO DAILY Qty: 30 0RF cyclobenzaprine 10 mg tablet 10 mg PO BID PRN (Reason: muscle spasm) Qty: 14 0RF promethazine 25 mg tablet 25 mg PO TID PRN (Reason: nausea and vomiting) Qty: 20 0RF ferrous sulfate 325 mg (65 mg iron) tablet 325 mg PO DAILY Qty: 90 1RF escitalopram oxalate [Lexapro] 20 mg tablet 20 mg PO DAILY Qty: 30 5RF Follow-up/Referrals: PHYSICIAN,TUFTING SUPERVISOR [Primary Care Provider] - Time of Disposition: 11:07
[2025-02-16 10:42] VITALS: BP 161/88; PULSE 58; RESP 16; TEMP 36.2; O2SAT 100
== END 2025-02-16 11:15 | disposition home or self-care (01) ==
PROVIDERS: Emergency Provider Nurse Practitioner
DX: R30.0 Dysuria (principal); Z87.891 Personal history of nicotine dependence; K21.9 Gastro-esophageal reflux disease without esophagitis; I10 Essential (primary) hypertension; J45.909 Unspecified asthma, uncomplicated; I25.10 Atherosclerotic heart disease of native coronary artery without angina pectoris; I25.2 Old myocardial infarction; R73.03 Prediabetes; F41.9 Anxiety disorder, unspecified; F32.A Depression, unspecified; Z98.84 Bariatric surgery status
CPT/HCPCS: 87086; 99213; G0463

== ENCOUNTER 2025-03-20 10:31 | Emergency (ER) | payer OTHER, SELFPAY ==
[2025-03-20 10:41] VITALS: BP 161/92; PULSE 64; RESP 20; TEMP 36.7; O2SAT 99
--- NOTE | 2025-03-20 11:53 | ED_ITS ---
HPI - Skin/Abscess/Foreign Bdy General Chief complaint: Skin/Abscess/Foreign Body Stated complaint: irritation around eyes Time Seen by Provider: 03/20/25 10:33 Source: patient Mode of arrival: ambulatory Limitations: no limitations History of Present Illness HPI narrative: Patient is a 55-year-old male who presents with 4 days of skin irritation around his eyes, right more than left. States they have been swollen, itchy and red intermittently along with slight drainage. Patient has applied cool cough size. Denies any fever, chills, nausea, vomiting, diarrhea. Also requesting refill for Prilosec. Does not take allergy medicine every day. Related Data Home Medications ?Medication ?Instructions ?Recorded ?Confirmed ?Last Taken ?Type potassium chloride 10 mEq 10 meq PO DAILY 06/09/23 07/26/24 08/18/24 History tablet,extended release omeprazole 40 mg capsule,delayed 40 mg PO DAILY 04/22/24 08/29/24 08/18/24 History release atenolol 50 mg tablet 50 mg PO Q24H 08/29/24 08/29/24 Unknown History Allergies Allergy/AdvReac Type Severity Reaction Status Date / Time Iodinated Contrast Media Allergy Severe Anaphylaxis Verified 03/20/25 10:50 metformin Allergy Severe Stopped Verified 03/20/25 10:50 Breathing Sulfa (Sulfonamide Allergy Severe Anaphylaxis Verified 03/20/25 10:50 Antibiotics) sulfamethoxazole Allergy Severe Anaphylaxis Verified 03/20/25 10:50 famotidine Allergy Intermediate Hives Verified 03/20/25 10:50 losartan Allergy Intermediate SWLLEING Verified 03/20/25 10:50 LIP AND HIVES nebivolol Allergy Intermediate LIP Verified 03/20/25 10:50 SWELLING Quinolones Allergy Intermediate Nervousness Verified 03/20/25 10:50 valsartan Allergy Intermediate HIVES/SOB Verified 03/20/25 10:50 amlodipine Allergy Mild HIVES Verified 03/20/25 10:50 azithromycin Allergy Mild Nervousness Verified 03/20/25 10:50 pantoprazole Allergy Mild Hives Verified 03/20/25 10:50 spironolactone Allergy Mild RASH AND Verified 03/20/25 10:50 ITCHING trimethoprim Allergy Mild RASH Verified 03/20/25 10:50 morphine Allergy Unknown Verified 03/20/25 10:50 cephalexin AdvReac Mild Nervousness Verified 03/20/25 10:50 flavoxate AdvReac Mild Nervousness Verified 03/20/25 10:50 levofloxacin AdvReac Mild Nervousness Verified 03/20/25 10:50 lidocaine AdvReac Mild Nervousness Verified 03/20/25 10:50 lisinopril AdvReac Mild Nervousness Verified 03/20/25 10:50 nitrofurantoin AdvReac Mild Nervousness Verified 03/20/25 10:50 oxycodone AdvReac Mild Nervousness Verified 03/20/25 10:50 paroxetine AdvReac Mild Nervousness Verified 03/20/25 10:50 Review of Systems Review of Systems: All systems reviewed & are unremarkable except as noted in HPI and below Constitutional: Constitutional: Denies body ache(s), Denies fever(s), Denies headache(s), Denies malaise and Denies weakness Eyes: Eyes: Denies blurry vision, Reports eye discharge, Reports irritation, Reports itchy eyes, Denies loss of vision and Denies eye pain ENT: Denies otalgia, Denies headache(s), Denies nasal discharge, Denies sinus pain and Denies sore throat Cardiovascular: Cardiovascular: Denies chest pain, Denies irregular heart rhythm and Denies dyspnea Respiratory: Respiratory: Denies dyspnea Gastrointestinal: Gastrointestinal: Denies abdominal pain, Denies diarrhea, Denies nausea and Denies vomiting Musculoskeletal: Musculoskeletal: Denies back pain, Denies myalgias and Denies arthralgias Integumentary/Breasts: Skin/Breast: Denies pruritus and Denies rash Neurologic: Denies headache(s), Denies loss of vision and Denies weakness Psychiatric: Psychiatric: Reports no additional psychiatric complaints Allergic/Immunologic: Allergic/Immunologic: Reports itchy eyes PMFSH Past Medical History Medical History Prediabetes Allergic rhinitis Chronic sinusitis Chronic post-traumatic stress disorder (PTSD) Anxiety Depression GERD (gastroesophageal reflux disease) Sleep apnea Asthma HTN (hypertension) CAD (coronary artery disease) history [place] [facility] Surgical History Surgical History H/O gastric bypass Hx of cholecystectomy History of cardiac cath History of colonoscopy Family History Family History Grandparent Family history of obesity Hypertension Diabetes mellitus Mother Depression Patient's mother is in good health Family history of mental disorder Father Hypertension Patient's father is in good health Family history of alcoholism Cerebrovascular accident Sibling Patient's sister is in good health Patient's brother is in good health Father Cerebrovascular accident Alcoholism Hypertension Heart disease Mother Family history of malignant neoplasm Depression Hypertension Other Family history of cardiovascular disease Social History Social History Smoking status: Former smoker Smoking end date: 09/13/95 Alcohol intake: former Substance use: never Substance use type: opiates Lack of Transportation: No Lack of Food: Never True Current Housing: I Have Housing Concerned About Future Housing: No Difficulty Paying Gas/Electric Bills: No Difficulty Paying for Meds: No Currently Unemployed: No Education: Master's Degree or Higher Difficulty w/ Childcare or Family Care: No Living arrangements: alone Occupation/Education: occupation Gender identity (if verbalized by the patient): Male Sexual Orientation (if Verbalized by the Patient): Straight or Heterosexual Spiritual care concerns: No Comments At time of signature, agree with nursing past medical, surgical, social and family history. There is no relevant family history pertinent to the presenting complaint. Exam Const: General: cooperative, healthy appearing, comfortable, no acute distress and well nourished Nutritional Appearance: well nourished Orientation/consciousness: patient oriented x3 Limitations: no limitations HENMT: Head: normal to inspection, normocephalic and atraumatic Ears: hearing grossly normal bilaterally, external ears normal, TM's normal bilaterally and EAC's normal Face/Nose/Sinus: Normal external nose present, normal facial exam and face symmetric Face and sinus: normal facial exam and face symmetric Mouth: Yes Normal oral and palatal mucosa present, Yes lip normal, Yes tongue normal and Yes oropharynx normal Throat: posterior oropharynx normal, tonsils normal and postnasal drainage Eyes: General: appearance normal, both eyes and all related structures Visual Whitaker: normal visual whitaker by confrontation Alignment and Position: alignment normal and position normal Periorbital: periorbital findings normal Eyelids: eyelids normal Conjunctivae: conjunctival abnormality bilateral conjunctival injection diffuse Sclera: sclerae normal Pupils: Equal, round and reactive pupils present EOM: EOMs intact bilaterally Direct Ophthalmoscopy: no photophobia Other: No hyphema, no foreign body under the lids. Neck: Neck: normal visual inspection, full ROM, no lymphadenopathy and no meningeal signs Chest: Chest palpation & inspection: normal inspection of the chest Resp: Effort & Inspection: normal respiratory effort and able to speak in complete sentences Auscultation: clear to auscultation bilaterally Cardio: Rate: regular rate Rhythm: regular rhythm Heart sounds: S1 normal heart sound present and S2 normal heart sound present GI: Inspection: normal to inspection Skin: General skin exam: normal color and no rashes or lesions noted Neuro: General: patient oriented x3, moves all extremities and no meningeal signs Cranial nerves: Yes Equal, round and reactive pupils present Speech: normal speech Gait exam (Neuro): Normal gait present Extrem: General: normal to inspection, full ROM and no edema Psych: Appearance: grossly normal and well kempt Mental Status: mental status grossly normal Speech and movement: Normal speech and movement present Affect: normal affect Attitude: cooperative Thought process: Normal thought process present Course Course Emergency Course: Patient is aware of diagnosis, understands and agrees to treatment plan. Anticipatory guidance given. Patient agrees to follow-up as directed and is aware of reasons to seek care at the emergency department. Portions of this record may have been created with voice recognition software Level of Care: Express Care Visit Vital Signs Vital signs: Vital Signs Temperature 36.7 C 03/20/25 10:41 Pulse Rate 64 03/20/25 10:41 Respiratory Rate 20 03/20/25 10:41 Blood Pressure 161/92 H 03/20/25 10:41 Pulse Oximetry 99 03/20/25 10:41 Oxygen Delivery Room Air 03/20/25 10:41 Temperature 36.7 C 03/20/25 10:41 Pulse Rate 64 03/20/25 10:41 Respiratory Rate 20 03/20/25 10:41 Blood Pressure 161/92 H 03/20/25 10:41 Pulse Oximetry 99 03/20/25 10:41 Oxygen Delivery Room Air 03/20/25 10:41 Reviewed MDM - Skin/Abscess/Foreign Bdy MDM Narrative Medical decision making narrative: Pt well hydrated appearing, in no respiratory distress, hemodynamically stable. Recommend supportive care. The patient is stable at time of discharge the clinical impression was discussed and the patient was given the opportunity to ask questions, which were addressed as completely as possible given the information available at present. Anticipatory guidance and return to care precautions were discussed and the importance of primary care follow-up was stressed and encouraged. The patient voiced understanding of the plan, indications to return, and the need for follow-up. Exam findings show no acute concerns or changes Patient is appropriate for outpatient treatment and follow-up. Differential diagnosis considered: Conjunctivitis, Vázquez virus, strep pharyngitis, allergic rhinitis, upper respiratory tract infection, viral syndrome, and influenza.? Differential Diagnosis Differential diagnosis: Likely cellulitis Medical Records Attestation: I reviewed the patient's medical records. Discharge Plan Discharge Clinical Impression: Conjunctivitis Qualifiers: Conjunctivitis type: acute Acute conjunctivitis type: bacterial Laterality: bilateral Qualified Code(s): H10.33 - Unspecified acute conjunctivitis, bilateral Patient Disposition: Home Condition: Stable Instructions: Antibiotic Form Additional Instructions: Eye ointment as prescribed -Do this for 3 to 4 days until all redness and discharge has disappeared. -Cold compresses to the affected eye for comfort -Alternate or take Tylenol or ibuprofen as directed in the bottle for pain -Practice good handwashing and hygiene to prevent spread of infection Follow-up with PCP or club steward if condition is not improving in 2-3days. Go to the emergency room if you have pain behind your eye, pressure behind her eye, difficulty seeing, or other severe symptoms Your blood pressure was elevated above 120/80 today at Urgent Care. This puts you above the threshold for follow up visit with a primary care provider. High blood pressure does not usually cause any symptoms, however it may lead to kidney failure, stroke, heart disease just to name a few if untreated . Many people are anxious when seeing a provider or nurse. As a result, you are not diagnosed with hypertension at this time unless your blood pressure is persistently high at two office visits at least one week apart. Some things that can help lower blood pressure are lifestyle modifications, such as light exercise, decreased salt in diet, and weight loss. It is important to follow up with a PCP about this within 1 week. Patient Language: Moroccan Prescriptions: New neomycin-polymyxin B-dexameth 3.5 mg/g-10,000 unit/g-0.1 % ointment 1 applic EACH EYE Q6H Qty: 3.5 0RF omeprazole 40 mg capsule,delayed release(DR/EC) 40 mg PO DAILY Qty: 30 0RF fluticasone propionate [Flonase Allergy Relief] 50 mcg/actuation spray,suspension 1 spray intranasal DAILY Qty: 16 0RF Rx Instructions: administer into each nostril No Action potassium chloride 10 mEq tablet extended release 10 meq PO DAILY omeprazole 40 mg capsule,delayed release(DR/EC) 40 mg PO DAILY atenolol 50 mg tablet 50 mg PO Q24H Patient Comments: PT STATES HE IS NOW TAKING 100MG PO DAULY albuterol sulfate 90 mcg/actuation HFA aerosol inhaler 2 puff inhalation Q4-6H PRN (Reason: shortness of breath or wheezing) 30 Days Qty: 8.5 0RF fluticasone propionate [Flonase Allergy Relief] 50 mcg/actuation spray,suspension 1 spray intranasal BID Qty: 16 0RF Rx Instructions: administer into each nostril (DME) Aerochamber Plus Z Stat Spacer See Rx Instructions .Route Qty: 1 0RF Rx Instructions: As directed atenolol 100 mg tablet 100 mg PO DAILY Qty: 30 0RF atenolol 100 mg tablet 100 mg PO DAILY Qty: 30 0RF cyclobenzaprine 10 mg tablet 10 mg PO BID PRN (Reason: muscle spasm) Qty: 14 0RF promethazine 25 mg tablet 25 mg PO TID PRN (Reason: nausea and vomiting) Qty: 20 0RF ferrous sulfate 325 mg (65 mg iron) tablet 325 mg PO DAILY Qty: 90 1RF escitalopram oxalate [Lexapro] 20 mg tablet 20 mg PO DAILY Qty: 30 5RF Follow-up/Referrals: Sam Sam MD [Physician] - 3 Days (Establish care) Time of Disposition: 12:05
== END 2025-03-20 12:10 | disposition home or self-care (01) ==
PROVIDERS: Emergency Provider Nurse Practitioner Family
DX: H10.9 Unspecified conjunctivitis (principal); Z87.891 Personal history of nicotine dependence; K21.9 Gastro-esophageal reflux disease without esophagitis; I10 Essential (primary) hypertension; I25.10 Atherosclerotic heart disease of native coronary artery without angina pectoris; I25.2 Old myocardial infarction; J45.909 Unspecified asthma, uncomplicated; R73.03 Prediabetes; Z98.84 Bariatric surgery status
CPT/HCPCS: 99213; G0463

== ENCOUNTER 2025-03-29 08:17 | Emergency (ER) | payer OTHER, SELFPAY ==
--- NOTE | 2025-03-29 08:21 | ED_ITS ---
HPI - Extremity Injury (Upper) General Chief Complaint: Extremity Injury, Upper Stated Complaint: Blood pressure medication, Pain in left shoulder & Time Seen by Provider: 03/29/25 08:20 Source: patient Mode of arrival: ambulatory Limitations: no limitations History of Present Illness HPI narrative: Patient is a 55-year-old male who presents with left shoulder pain after box fell on to shoulder yesterday around 10:00 a.m.. Patient is also having intermittent numbness and tingling to his fingers. Patient has taken ibuprofen with no relief. Patient has also used heating pad. Reports worsening pain with movement. Patient also having sinus pressure, sore throat and headache for 9 days. States symptoms started after he was seen here on the . Patient does take daily allergy medicine. Patient is also out of blood pressure medicine. Related Data Home Medications ?Medication ?Instructions ?Recorded ?Confirmed ?Last Taken ?Type potassium chloride 10 mEq 10 meq PO DAILY 06/09/23 07/26/24 08/18/24 History tablet,extended release omeprazole 40 mg capsule,delayed 40 mg PO DAILY 04/22/24 08/29/24 08/18/24 History release atenolol 50 mg tablet 50 mg PO Q24H 08/29/24 08/29/24 Unknown History Allergies Allergy/AdvReac Type Severity Reaction Status Date / Time Iodinated Contrast Media Allergy Severe Anaphylaxis Verified 03/29/25 08:39 metformin Allergy Severe Stopped Verified 03/29/25 08:39 Breathing Sulfa (Sulfonamide Allergy Severe Anaphylaxis Verified 03/29/25 08:39 Antibiotics) sulfamethoxazole Allergy Severe Anaphylaxis Verified 03/29/25 08:39 famotidine Allergy Intermediate Hives Verified 03/29/25 08:39 losartan Allergy Intermediate SWLLEING Verified 03/29/25 08:39 LIP AND HIVES nebivolol Allergy Intermediate LIP Verified 03/29/25 08:39 SWELLING Quinolones Allergy Intermediate Nervousness Verified 03/29/25 08:39 valsartan Allergy Intermediate HIVES/SOB Verified 03/29/25 08:39 amlodipine Allergy Mild HIVES Verified 03/29/25 08:39 azithromycin Allergy Mild Nervousness Verified 03/29/25 08:39 pantoprazole Allergy Mild Hives Verified 03/29/25 08:39 spironolactone Allergy Mild RASH AND Verified 03/29/25 08:39 ITCHING trimethoprim Allergy Mild RASH Verified 03/29/25 08:39 morphine Allergy Unknown Verified 03/29/25 08:39 cephalexin AdvReac Mild Nervousness Verified 03/29/25 08:39 flavoxate AdvReac Mild Nervousness Verified 03/29/25 08:39 levofloxacin AdvReac Mild Nervousness Verified 03/29/25 08:39 lidocaine AdvReac Mild Nervousness Verified 03/29/25 08:39 lisinopril AdvReac Mild Nervousness Verified 03/29/25 08:39 nitrofurantoin AdvReac Mild Nervousness Verified 03/29/25 08:39 oxycodone AdvReac Mild Nervousness Verified 03/29/25 08:39 paroxetine AdvReac Mild Nervousness Verified 03/29/25 08:39 Review of Systems Review of Systems: All systems reviewed & are unremarkable except as noted in HPI and below Constitutional: Constitutional: Denies body ache(s), Denies chills, Denies fatigue, Denies fever(s), Denies headache(s), Denies malaise and Denies weakness Eyes: Eyes: Denies blurry vision, Denies irritation and Denies loss of vision ENT: Denies otalgia, Denies headache(s), Denies nasal discharge, Reports sinus pain, Reports sinus pressure and Reports sore throat Cardiovascular: Cardiovascular: Denies chest pain, Denies irregular heart rhythm and Denies dyspnea Respiratory: Respiratory: Denies dyspnea Gastrointestinal: Gastrointestinal: Denies abdominal pain, Denies melena, Denies hematochezia, Denies diarrhea, Denies nausea and Denies vomiting Musculoskeletal: Musculoskeletal: Denies back pain, Denies myalgias, Reports arthralgias, Reports numbness and Reports tingling Integumentary/Breasts: Skin/Breast: Denies pruritus and Denies rash Neurologic: Denies headache(s), Denies loss of vision and Denies weakness Psychiatric: Psychiatric: Reports no additional psychiatric complaints Endocrine: Endocrine: Denies fatigue PMFSH Past Medical History Medical History Prediabetes Allergic rhinitis Chronic sinusitis Chronic post-traumatic stress disorder (PTSD) Anxiety Depression GERD (gastroesophageal reflux disease) Sleep apnea Asthma HTN (hypertension) CAD (coronary artery disease) history SD Concussion Surgical History Surgical History H/O gastric bypass Hx of cholecystectomy History of cardiac cath History of colonoscopy Family History Family History Grandparent Family history of obesity Hypertension Diabetes mellitus Mother Depression Patient's mother is in good health Family history of mental disorder Father Hypertension Patient's father is in good health Family history of alcoholism Cerebrovascular accident Sibling Patient's sister is in good health Patient's brother is in good health Father Cerebrovascular accident Alcoholism Hypertension Heart disease Mother Family history of malignant neoplasm Depression Hypertension Other Family history of cardiovascular disease Social History Social History Smoking status: Former smoker Smoking end date: 09/13/95 Alcohol intake: former Substance use: never Substance use type: opiates Lack of Transportation: No Lack of Food: Never True Current Housing: I Have Housing Concerned About Future Housing: No Difficulty Paying Gas/Electric Bills: No Difficulty Paying for Meds: No Currently Unemployed: No Education: Master's Degree or Higher Difficulty w/ Childcare or Family Care: No Living arrangements: alone Occupation/Education: occupation Gender identity (if verbalized by the patient): Male Sexual Orientation (if Verbalized by the Patient): Straight or Heterosexual Spiritual care concerns: No Comments At time of signature, agree with nursing past medical, surgical, social and fa nikko history. There is no relevant family history pertinent to the presenting complaint. Exam Const: General: cooperative, healthy appearing, comfortable, no acute distress and well nourished Nutritional Appearance: well nourished Orientation/consciousness: patient oriented x3 Limitations: no limitations HENMT: Head: normal to inspection, normocephalic and atraumatic Ears: hearing grossly normal bilaterally, external ears normal, TM's normal bilaterally and EAC's normal Face/Nose/Sinus: Normal external nose present, normal facial exam and face symmetric Face and sinus: normal facial exam, face symmetric and sinus tenderness maxillary (left) Mouth: Yes Normal oral and palatal mucosa present, Yes lip normal, Yes tongue normal and Yes Normal salivary glands and ducts present Teeth and gingiva: dentition normal Throat: posterior oropharynx normal, tonsils normal and uvula midline Eyes: General: appearance normal, both eyes and all related structures Alignment and Position: alignment normal and position normal Periorbital: periorbital findings normal Eyelids: eyelids normal Pupils: Equal, round and reactive pupils present EOM: EOMs intact bilaterally Neck: Neck: normal visual inspection, full ROM and supple Chest: Chest palpation & inspection: normal inspection of the chest Resp: Effort & Inspection: normal respiratory effort and able to speak in complete sentences Auscultation: clear to auscultation bilaterally Cardio: Rate: regular rate Rhythm: regular rhythm Heart sounds: S1 normal heart sound present and S2 normal heart sound present GI: Inspection: normal to inspection Back/Spine/Pelvis: Cervical Spine: normal cervical lordosis, cervical ROM normal, cervical muscular tenderness (Left side), No Cervical spine tenderness and No step off deformity Skin: General skin exam: normal color and no rashes or lesions noted Neuro: General: patient oriented x3 and moves all extremities Cranial nerves: Yes Equal, round and reactive pupils present Cognition (Neuro): normal cognition Speech: normal speech Gait exam (Neuro): Normal gait present Motor exam (neuro): 5/5 motor strength present throughout, Normal motor muscle tone present throughout and Motor abnormalities not present Extrem: General: normal to inspection, full ROM and no edema Left upper extremity: shoulder/upper arm inspection abnormal, tenderness of the A-C joint and of the scapula, axillary nerve sensory function normal and normal ROM (Patient using arms without pain when story telling and making gestures); no swelling, no ecchymosis, no deformity and no unsual warmth, elbow/forearm normal to inspection, normal ROM and distal pulses intact; no tenderness and no swelling, wrist normal to inspection, normal ROM and normal vascular exam and hand normal to inspection, normal capillary refill, neuromotor exam normal, neurosensory exam normal, tendon exam normal, normal ROM of fingers and no swelling Psych: Appearance: grossly normal and well kempt Mental Status: mental status grossly normal Speech and movement: Normal speech and movement present Affect: normal affect Attitude: cooperative Thought process: Normal thought process present Course Course Emergency Course: Patient is aware of diagnosis, understands and agrees to treatment plan. Anticipatory guidance given. Patient agrees to follow-up as directed and is aware of reasons to seek care at the emergency department. Portions of this record may have been created with voice recognition software Level of Care: Express Care Visit Vital Signs Vital signs: Reviewed MDM - Extremity Injury (Upper) MDM Narrative Medical decision making narrative: Symptoms consistent with shoulder strain and sinusitis. Discussed steroid use with patient. Patient states he has taken in the past and prefers prednisone over Medrol Dosepak. Will complete EKG to rule out any cardiac involvement. Chest pain reproducible on palpation over left upper chest. When asked patient reports left shoulder pain with movement, when patient is distracted telling a story he uses both arms equally and without any signs of distress. Pt well hydrated appearing, in no respiratory distress, hemodynamically stable. Recommend supportive care. The patient is stable at time of discharge the clinical impression was discussed and the patient was given the opportunity to ask questions, which were addressed as completely as possible given the information available at present. Anticipatory guidance and return to care precautions were discussed and the importance of primary care follow-up was stressed and encouraged. The patient voiced understanding of the plan, indic ations to return, and the need for follow-up. Exam findings show no acute concerns or changes Patient is appropriate for outpatient treatment and follow-up. Differential Diagnosis Differential diagnosis: Likely other (Shoulder strain, cervical radiculopathy, URI, sinusitis, less likely cardiac in nature) Medical Records Attestation: I reviewed the patient's medical records. ECG Data EKG #1: Attestation: I personally reviewed and interpreted this ECG as follows: ECG completion date: 03/29/25 ECG completion time: 09:26 Prior ECG tracings: available for review Interpretation: EKG: VR[56], NE int[163], QRS dur:[102], QT/QTc: [429/420], PRT axes: [-8 9 3], Avg RR:[1063], QTcB: [416], QTcF: [420] EKG Interpretation: bradycardia and sinus rhythm Discharge Plan Discharge Clinical Impression: Left shoulder strain, Sinusitis Patient Disposition: Home Condition: Stable Instructions: Sinusitis (ED), Shoulder Sprain (ED) Additional Instructions: Minimize activities that aggravate the condition The RICE protocol. Follow the RICE protocol as soon as possible after your injury:. Ice should be immediately applied to keep the swelling down. It can be used for 20 to 30 minutes, three or four times daily. Do not apply ice directly to your skin. Compression dressings, bandages or nikole-wraps will immobilize and support your injured shoulder. Elevate your arm above the level of your heart as often as possible during the first 48 hours. Medication: Take steroids in the morning with food. Use muscle relaxers as needed for muscle spasms. They may make you sleepy. Please schedule a follow-up visit with your personal physician for further evaluation and treatment within 1week OR If your symptoms persist, change or worsen significantly before you can contact your personal physician then please, without delay, go to the emergency department for further evaluation. Take antibiotics as prescribed. Flushing the nose and sinuses with a saline solution several times per day has been proven to decrease pain associated with congestion and shorten the duration of symptoms. Nasal steroids (such as Flonase, 2 sprays in each nostril daily) can help to reduce swelling inside the nose, usually within two to three days. These drugs have few side effects and relieve symptoms in most people. Oral decongestants (pseudoephedrine and phenylephrine) may be helpful if you have associated symptoms of ear pain or fullness. Nasal decongestant sprays, including oxymetazoline (Afrin) and phenylephrine (Jim-Synephrine), can be used to temporarily treat congestion. However, these sprays should not be used for more than two to three days due to the risk of rebound congestion (when the nose becomes congested constantly unless the medication is used repeatedly), possible addiction, and long-term consequences of frequent use, including persistent nasal dryness and crusting, which is very difficult to treat once it has developed. Medications to thin secretions (such as guaifenesin) may help to clear mucus. Your blood pressure was elevated above 120/80 today at Urgent Care. This puts you above the threshold for follow up visit with a primary care provider. High blood pressure does not usually cause any symptoms, however it may lead to kidney failure, stroke, heart disease just to name a few if untreated . Many people are anxious when seeing a provider or nurse. As a result, you are not diagnosed with hypertension at this time unless your blood pressure is persistently high at two office visits at least one week apart. Some things that can help lower blood pressure are lifestyle modifications, such as light exercise, decreased salt in diet, and weight loss. It is important to follow up with a PCP about this within 1 week. Patient Language: Cymraes Prescriptions: New cyclobenzaprine 10 mg tablet 10 mg PO TID PRN (Reason: muscle spasm) Qty: 10 0RF prednisone 20 mg tablet See Rx Instructions .ROUTE .COMPLEX Qty: 9 0RF Rx Instructions: 40 mg daily x3 days, 20 mg daily x3 days amoxicillin-pot clavulanate 875-125 mg tablet 1 tablet PO Q12H 10 Days Qty: 20 0RF atenolol 100 mg tablet 100 mg PO DAILY Qty: 30 0RF No Action potassium chloride 10 mEq tablet extended release 10 meq PO DAILY omeprazole 40 mg capsule,delayed release(DR/EC) 40 mg PO DAILY atenolol 50 mg tablet 50 mg PO Q24H Patient Comments: PT STATES HE IS NOW TAKING 100MG PO DAULY albuterol sulfate 90 mcg/actuation HFA aerosol inhaler 2 puff inhalation Q4-6H PRN (Reason: shortness of breath or wheezing) 30 Days Qty: 8.5 0RF fluticasone propionate [Flonase Allergy Relief] 50 mcg/actuation spray,suspension 1 spray intranasal BID Qty: 16 0RF Rx Instructions: administer into each nostril (DME) Aerochamber Plus Z Stat Spacer See Rx Instructions .Route Qty: 1 0RF Rx Instructions: As directed atenolol 100 mg tablet 100 mg PO DAILY Qty: 30 0RF atenolol 100 mg tablet 100 mg PO DAILY Qty: 30 0RF neomycin-polymyxin B-dexameth 3.5 mg/g-10,000 unit/g-0.1 % ointment 1 applic EACH EYE Q6H Qty: 3.5 0RF omeprazole 40 mg capsule,delayed release(DR/EC) 40 mg PO DAILY Qty: 30 0RF fluticasone propionate [Flonase Allergy Relief] 50 mcg/actuation spray,suspension 1 spray intranasal DAILY Qty: 16 0RF Rx Instructions: administer into each nostril cyclobenzaprine 10 mg tablet 10 mg PO BID PRN (Reason: muscle spasm) Qty: 14 0RF promethazine 25 mg tablet 25 mg PO TID PRN (Reason: nausea and vomiting) Qty: 20 0RF ferrous sulfate 325 mg (65 mg iron) tablet 325 mg PO DAILY Qty: 90 1RF escitalopram oxalate [Lexapro] 20 mg tablet 20 mg PO DAILY Qty: 30 5RF Follow-up/Referrals: Reji Mota MD [Physician] - 3 Days Time of Disposition: 09:38
[2025-03-29 08:30] VITALS: BP 154/78; PULSE 60; RESP 16; TEMP 36.3; O2SAT 100
--- NOTE | 2025-03-29 09:11 | ECG_ITS ---
Test Date: 2025-03-29 09:26:56 Measurements Intervals [place] Rate: 56 P: -8 NM: 163 QRS: 9 QRSD: 102 T: 3 QT: 429 QTc: 416 Interpretive Statements SINUS BRADYCARDIA NONSPECIFIC ST- T WAVE CHANGES Compared to ECG 02/13/2025 14:05:44 No significant changes Electronically Signed On 03-29-2025 14:42:40 CDT by Ramon Juan M.D.
== END 2025-03-29 09:48 | disposition home or self-care (01) ==
PROVIDERS: Emergency Provider Nurse Practitioner Family
DX: S46.912A Strain of unspecified muscle, fascia and tendon at shoulder and upper arm level, left arm, initial encounter (principal); J32.9 Chronic sinusitis, unspecified; I25.10 Atherosclerotic heart disease of native coronary artery without angina pectoris; I10 Essential (primary) hypertension; Z87.891 Personal history of nicotine dependence; W22.8XXA Striking against or struck by other objects, initial encounter
CPT/HCPCS: 93005; 99213; G0463

== ENCOUNTER 2025-04-04 08:21 | Emergency (ER) | payer OTHER, SELFPAY ==
--- NOTE | ~2025-04-04 | CT_ITS ---
EXAM: CT abd pelvis lumbar wo con - 04/04/2025 9:18 CDT History: 55 years old Male with NONTRAUMATIC RIGHT HIP PAIN TECHNIQUE: Multidetector CT of the lumbar spine, abdomen and pelvis without contrast. Coronal and sa gittal reformats were also provided for review. Automatic exposure control was used for this study. COMPARISON: None Available. FINDINGS: VISUALIZED CHEST: Visualized lungs are clear. ABDOMEN and PELVIS: LIVER: Within normal limits. GALLBLADDER: Postcholecystectomy. BILE DUCTS: No dilatation. SPLEEN: Enlarged spleen, measuring up to 17.3 cm in greatest craniocaudal dimension. PANCREAS: Within normal limits. ADRENAL GLANDS: 1.3 cm left adrenal adenoma. KIDNEYS and URETERS: No hydronephrosis or hydroureter. Bilateral punctate nonobstructive nephrolithia sis.. URINARY BLADDER: Within normal limits. STOMACH and BOWEL: There is a large mass in the proximal sigmoid colon, measuring up to 4.5 cm in max imum dimension, highly concerning for malignancy. Scattered colonic diverticula are seen. REPRODUCTIVE ORGANS: Within normal limits. MESENTERY/PERITONEAL CAVITY: No free fluid or pneumoperitoneum. LYMPH NODES: No abdominal or pelvic lymphadenopathy. ABDOMINAL WALL: Bilateral fat-containing inguinal hernias. VASCULATURE: Within normal limits. MUSCULOSKELETAL: Multilevel degenerative changes of the spine. IMPRESSION: 1. Large mass in the proximal sigmoid colon, measuring up to 4.5 cm in maximum dimension, highly con cerning for malignancy. GI consultation and colonoscopy is recommended. 2. Splenomegaly. Reviewed, dictated and finalized at location A. IMPRESSION: 1. Large mass in the proximal sigmoid colon, measuring up to 4.5 cm in maximum dimension, highly concerning for malignancy. GI consultation and colonoscopy i s recommended. 2. Splenomegaly.
--- OUTSIDE RECORDS SUMMARY | 2025-04-04 08:23 | XMS_ITS | Clinical Summary ---
Author Organization [facility] Address [facility] [place] [address] Care Team Providers Care Pl Sql Developer Name Role Phone None, Provider MD Primary [...] 01/04/2014 Sulfasalazine Shortness of Breath High 06/26/2013 Tramadol Shortness of Breath High 02/06/2025 Trimethoprim Other (see comment) 12/31/2019 Azithromycin Hives [...] by mouth daily. 30 tablet 05/22/2024 Active sucralfate (CARAFATE) 1 G tablet Take 1 tablet (1 g total) by mouth 4 (four) times daily before meals and nightly. 60 tablet 02/06/2025 Active omeprazole (PRILOSEC) 20 MG capsule Take 2 capsules (40 mg total) by mouth daily. 60 capsule 02/06/2025 Active ondansetron (ZOFRAN) 4 MG tablet Take 1 tablet (4 mg total) by mouth every 8 (eight) hours as needed for Nausea. 20 tablet 02/06/2025 Active Active Problems No known active problems Encounters Date Type Department Care Team Description 02/06/2025 1:54 PM CDT - 02/06/2025 4:50 PM CDT Emergency [facility] [place] [address] Luna Zabala Dg, TREASURY MANAGER Abdominal Pain Discharge Disposition: Home or Self Care (Routine Discharge) 02/06/2025 Travel from Last 3 Months Family History Medical History Relation Comments Stroke Father Cancer Mother Relation Status Comments Father Mother Social History Tobacco Use Types Packs/Day Years Used Date Smoking Tobacco: Former Smokeless Tobacco: Never Tobacco Cessation:Counseling Given: Not Answered Alcohol Use Standard Drinks/Week Comments No 0 (1 standard drink = 0.6 oz pur e alcohol) Sex and Gender Information Value Date Recorded Sex Assigned at Male 02/06/2025 1:55 PM CDT Legal Sex Male 10:39 PM CDT Gender Identity Not on file Sexual Orientation Not on file Last Filed Vital Signs Vital Sign Reading Time Taken Comments Blood Pressure 161/91 02/06/2025 4:37 PM CDT Pulse 61 02/06/2025 4:37 PM CDT Temperature 36.3 C (97.4 F) 02/06/2025 1:39 PM CDT Respiratory Rate 19 02/06/2025 4:37 PM CDT Oxygen Saturation 97% 02/06/2025 4:37 PM CDT Inhaled Oxygen Concentration - - Weight 123.8 kg (272 lb 14.9 oz) 02/06/2025 1:39 PM CDT Height 188 cm (6' 2) 02/06/2025 1:39 PM CDT Body Mass Index 35.04 02/06/2025 1:39 PM CDT Plan of Treatment Health Maintenance [...] Vaccine ( - 2023-2 5 season) 2024 Hepatitis C [...] Diagnosis Comments CT ABD+PEL WO CON STAT 02/06/2025 3:5 6 PM CDT TROPONIN, QUANT STAT 02/06/2025 2:05 PM CDT LIPASE STAT 02/06/2025 2:05 PM CDT COMPREHENSIVE METABOLIC PANEL STAT 02/06/2025 2:05 PM CDT CBC W/DIFF AUTOMATED STAT 02/06/2025 2:05 PM CDT HC URINALYSIS AUTO W/O MICRO STAT 02/06/2025 2:03 PM CDT ECG 12-LEAD Routine 02/06/2025 1:55 PM CDT from Last 3 Months Results * CT ABD+PEL WO CON (02/06/2025 3:56 PM CDT) Anatomical Region Laterality Modality Abdomen Computed Tomogra phy 02/06/2025 4:01 PM CDT Impressions 02/06/2025 4:15 PM CDT IMPRESSION: 1. Segmental descending and sigmoid colonic wall thickening with some associated nonspecific fat stranding. Previously reported sigmoid lesion is not apparent on the current study . However with limited evaluation based on non-IV contrast evaluation. Overall constellation of findings may represent acute colitis. However underlying malignancy/metastasis is not excluded. Less likely acute diverticulitis given overall features. Further management of these findings now should be determined clinically. 2. Artifact versus subtle interval developing/progressive minimal mesenteritis and retroperitoneal fibrosis/chronic inflammation. Clinical correlation recommended. 3. Artifact versus potential interval enlargement indeterminant left renal cortical lesion. Limited evaluation by noncontrast CT. Recommend renal protocol CT or MRI to further characterize. Alternatively consider targeted renal ultrasound for further management as well. 4. Multiple nonobstructing bilateral intrarenal calculi. No obstructive urolithiasis or signs of obstructive uropathy. Additional incidental, nonurgent, and chronic appearing findings as detailed above. Ordered By: LUNA ZABALA Interpreted By: Lizzie Le MD, 02/06/2025 4:01 PM Narrative 02/06/2025 4:15 PM CDT [address] [address] EXAM: CT ABDOMEN - PELVIS WITHOUT CONTRAST Exam Date: 02/06/2025 1:54 PM INDICATION: Male 54 years abdominal pain, elevated bilirubin, progressively worsening for one month, nausea, constipation. 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 TECHNIQUE: Contiguous axial slices were obtained of the abdomen and pelvis without contrast as per standard department protocol. Coronal and sagittal reformats submitted for review. A dose lowering technique was utilized for this procedure which may include but is not limited to dose reduction techniques, automated exposure control, and/or the use of iterative reconstruction in accordance with ALARA principle. COMPARISON: CT abdomen pelvis 04/30/2018 FINDINGS: Partially imaged bibasilar nonspecific hazy and linear densities. Some of this may represent scarring and/or chronic atelectasis given longevity. Limited evaluation of the partially imaged thorax on this nondedicated study. Suboptimal evaluation of solid and hollow viscera due to lack of IV contrast. HOLLOW VISCERA-MESENTERY: Decompressed stomach. Scattered air throughout small bowel and colon to the level of the rectum. No abnormally dilated bowel to suggest obstruction. The appendix is partially obscured but appears within normal limits with no pericecal inflammatory changes. Mild scattered colonic diverticulosis. Suspicion for segmental indeterminant descending colonic and sigmoid colon wall thickening with some minimal haziness of the surrounding fat. Limited evaluation of previously described sigmoid lesion on current study especially given non-IV contrast technique. No pneumoperitoneum or significant abdominal ascites. Minimal mistiness of the central mesenteric fat versus artifact. VASCULATURE:Unremarkable visualized aorta. SOLID VISCERA-RETROPERITONEUM: Stable mild mistiness of the retroperitoneal fat with the prominent but nonenlarged retroperitoneal lymph nodes, potentially slightly progressed in the interval. Cholecystectomy clips. No significant interval change of the liver or spleen. Artifact versus some mild interval progressive pancreatic involutional changes unremarkable adrenal glands. Symmetric kidneys. Multiple subcentimeter nonobstructing bilateral intrarenal calculi. No obstructive urolithiasis on either side. No hydronephrosis or discrete perinephric fluid collection suggested on either side. The left kidney lower pole partially exophytic cortical hypodense nodule best seen sagittal series 5 image 42 with slight interval prominence however too small to characterize especially on non-IV contrast study. No hydroureter on either side. No significant bladder abnormality demonstrated. No bladder calculus. Heterogeneous mildly enlarged prostate gland. SOFT TISSUES-OSSEOUS: Bilateral tvrng-mq-gtmqhlju fat-containing inguinal hernias. Tiny fat-containing umbilical hernia. Osseous degenerative changes redemonstrated. Stable straightening of the visualized spine. Stable subcentimeter osseous sclerotic lesions that are too small to characterize but statistically likely probably benign entities such as bone islands. Procedure Note Lizzie Le MD - 02/06/[address] [address] EXAM: CT ABDOMEN - PELVIS WITHOUT CONTRAST Exam Date: 02/06/2025 1:54 PM INDICATION: Male 54 years abdominal pain, elevated bilirubin,progressively worsening for one month, nausea, constipation. Reportedknown benign colonic tumor. TECHNIQUE: Contiguous axial slices were obtained of the abdomen and pelviswithout contrast as per standard department protocol. Coronal and sagittalreformats submitted for review. A dose lowering technique was utilized forthis procedure which may include but is not limited to dose reductiontechniques, automated exposure control, and/or the use of iterativereconstruction in accordance with ALARA principle. COMPARISON: CT abdomen pelvis 04/30/2018 FINDINGS: Partially imaged bibasilar nonspecific hazy and linear densities. Some of this may represent scarring and/or chronic atelectasis givenlongevity. Limited evaluation of the partially imaged thorax on this nondedicatedstudy. Suboptimal evaluation of solid and hollow viscera due to lack of IVcontrast. HOLLOW VISCERA-MESENTERY: Decompressed stomach. Scattered air throughoutsmall bowel and colon to the level of the rectum. No abnormally dilatedbowel to suggest obstruction. The appendix is partially obscured butappears within normal limits with no pericecal inflammatory changes. Mild scattered colonic diverticulosis. Suspicion for segmentalindeterminant descending colonic and sigmoid colon wall thickening withsome minimal haziness of the surrounding fat. Limited evaluation ofpreviously described sigmoid lesion on current study especially givennon-IV contrast technique. No pneumoperitoneum or significant abdominal ascites. Minimal mistiness ofthe central mesenteric fat versus artifact. VASCULATURE:Unremarkable visualized aorta. SOLID VISCERA-RETROPERITONEUM: Stable mild mistiness of the retroperitoneal fat with the prominent butnonenlarged retroperitoneal lymph nodes, potentially slightly progressedin the interval. Cholecystectomy clips. No significant interval change of the liver orspleen. Artifact versus some mild interval progressive pancreaticinvolutional changes unremarkable adrenal glands. Symmetric kidneys. Multiple subcentimeter nonobstructing bilateralintrarenal calculi. No obstructive urolithiasis on either side. Nohydronephrosis or discrete perinephric fluid collection suggested oneither side. The left kidney lower pole partially exophytic corticalhypodense nodule best seen sagittal series 5 image 42 with slight intervalprominence however too small to characterize especially on non-IV contraststudy. No hydroureter on either side. No significant bladder abnormalitydemonstrated. No bladder calculus. Heterogeneous mildly enlarged prostate gland. SOFT TISSUES-OSSEOUS: Bilateral dgect-ds-pfblznsf fat-containing inguinalhernias. Tiny fat-containing umbilical hernia. Osseous degenerative changes redemonstrated. Stable straightening of thevisualized spine. Stable subcentimeter osseous sclerotic lesions that aretoo small to characterize but statistically likely probably benignentities such as bone islands. IMPRESSION: 1. Segmental descending and sigmoid colonic wall thickening with someassociated nonspecific fat stranding. Previously reported sigmoid lesionis not apparent on the current study . However with limited evaluation based on non-IV contrast evaluation. Overall constellation of findings may represent acute colitis. However underlying malignancy/metastasis is not excluded. Less likely acute diverticulitis given overall features. Further management of these findings now should be determinedclinically. 2. Artifact versus subtle interval developing/progressive minimalmesenteritis and retroperitoneal fibrosis/chronic inflammation. Clinical correlation recommended. 3. Artifact versus potential interval enlargement indeterminant left renalcortical lesion. Limited evaluation by noncontrast CT. Recommend renal protocol CT or MRI to further characterize. Alternatively consider targeted renal ultrasound for further management aswell. 4. Multiple nonobstructing bilateral intrarenal calculi. No obstructive urolithiasis or signs of obstructive uropathy. Additional incidental, nonurgent, and chronic appearing findings asdetailed above. Ordered By: LUNA ZABALA Interpreted By: Lizzie Le MD, 02/06/2025 4:01 PM us Luna Zabala TREASURY MANAGER CT Final Resul t * (ABNORMAL) COMPREHENSIVE METABOLIC PANEL (02/06/2025 2:05 PM CDT) GLUCOSE 87 70 - 99 MG/DL 02/06/2025 3:00 PM CDT [facility] BUN 7 7 - 18 MG/DL 02/06/2025 3:00 PM CDT [facility] CREATININE S/P/B 1.17 0.7 - 1.3 MG/DL 02/06/2025 3:00 PM CDT [facility] SODIUM S/P/B 139 136 - 145 MMOL/L 02/06/2025 3:00 PM CDT [facility] POTASSIUM S/P/B 3.2(L) 3.5 - 5.1 MMOL/L 02/06/2025 3:00 PM CDT [facility] CHLORIDE S/P/B 103 97 - 115 MMOL/L 02/06/2025 3:00 PM T [facility] CO2 27.8 21 - 32 MMOL/L 02/06/2025 3:00 PM T [facility] CALCIUM S/P/B 9.3 8.5 - 10.1 MG/DL 02/06/2025 3:00 PM T [facility] BILIRUBIN TOTAL S/P/B 2.4(H) 0.2 - 1.2 MG/DL 02/06/2025 3:00 PM T [facility] Comment: THIS ASSAY IS NOT RECOMMENDED FOR PATIENTS UNDERGOING TREATMENT WITH ELTROMBOPAG DUE TO THE POTENTIAL FOR FALSELY ELEVATED RESULTS. TOTAL PROTEIN S/P/B 8.6(H) 6.4 - 8.2 G/DL 02/06/2025 3:00 PM T [facility] ALBUMIN S/P/B 4.4 3.4 - 5.0 G/DL 02/06/2025 3:00 PM T [facility] AST 29 15 - 37 U/L 02/06/2025 3:00 PM T [facility] ALT 33 16 - 60 U/L 02/06/2025 3:00 PM T [facility] ALKALINE PHOSPHATASE S/P/B 75 50 - 136 U/L 02/06/2025 3:00 PM T [facility] ANION GAP 8.2 2 - 10 MMOL/L 02/06/2025 3:00 PM T [facility] BUN CREATININE RATIO 6.0 6 - 02/06/2025 3:00 PM T [facility] A/G RATIO 1.0 1.0 - 2.0 RATIO 02/06/2025 3:00 PM T [facility] GFR ESTIMATE 75(L) >90 ML/MIN/1.7 3 M2 02/06/2025 3:00 PM CDT [facility] Comment: NOTE: eGFR is not calculated for patients <18 years of age or gender unknown. This is an estimated GFR calculation using the new CKD EPI creatinine equation without race and so does not require a correction factor for race. This estimated GFR should not be used for calculating drug doses. 02/06/2025 2:05 PM CDT Ramila Phillips PA-C LABORATORY Final Resul t [facility] [address] [place] [address], * (ABNORMAL) CBC W/DIFF AUTOMATED (02/06/2025 2:05 PM CDT) WBC 5.86 4.5 - 11.0 x10'3/uL 02/06/2025 3:04 PM CDT [facility] RBC 5.90 4.70 - 6.10 x10'6/uL 02/06/2025 3:04 PM CDT [facility] HGB 12.1(L) 14.0 - 18.0 G/DL 02/06/2025 3:04 PM CDT [facility] HCT 40.5(L) 43.0 - 54.0 % 02/06/2025 3:04 PM CDT [facility] MCV 68.6(L) 80.0 - 94.0 FL 02/06/2025 3:04 PM CDT [facility] MCH 20.5(L) 27.0 - 31.0 PG 02/06/2025 3:04 PM CDT [facility] MCHC 29.9(L) 32.0 - 36.0 G/DL 02/06/2025 3:04 PM CDT [facility] RDW 18.7(H) 11.5 - 14.5 % 02/06/2025 3:04 PM CDT [facility] PLT 208 130 - 400 x10'3/uL 02/06/2025 3:04 PM CDT [facility] MPV 9.7 9.3 - 12.2 FL 02/06/2025 3:04 PM CDT [facility] DIFFERENTIAL TYPE AUTOMATED DIFFERENTIAL 02/06/2025 3:05 PM CDT [facility] NEUTROPHILS % 66.0 % 02/06/2025 3:05 PM CDT [facility] LYMPHOCYTES % 25.3 % 02/06/2025 3:05 PM CDT [facility] MONOCYTES % 5.8 % 02/06/2025 3:05 PM CDT [facility] EOSINOPHILS 2.2 % 02/06/2025 3:05 PM CDT [facility] BASOPHILS 0.7 % 02/06/2025 3:05 PM CDT [facility] IMMATURE GRANS % 0.0 % 02/07/20 3:05 PM CDT [facility] ABS. NEUTROPHILS 3.87 1.80 - 7.70 x10'3/uL 02/06/2025 3:05 PM CDT [facility] ABS. LYMPHOCYTES 1.48 1.00 - 4.80 x10'3/uL 02/06/2025 3:05 PM CDT [facility] ABS. MONOCYTES 0.34 0.30 - 0.82 x10'3/uL 02/06/2025 3:05 PM CDT [facility] ABS. EOSINOPHILS 0.13 0.04 - 0.54 x10'3/uL 02/06/2025 3:05 PM CDT [facility] ABS. BASOPHILS 0.04 0.01 - 0.08 x10'3/uL 02/06/2025 3:05 PM CDT [facility] ABS. IMMATURE GRANULOCYTES 0.00 0.00 - 0.49 x10'3/uL 02/06/2025 3:05 PM CDT [facility] RBC MORPHOLOGY SLIDE REVIEWED 2024 3:05 PM CDT [facility] POIKLO 1+ 02/06/2025 3:05 PM CDT [facility] MICRO 2+ 02/06/2025 3:05 PM CDT [facility] POLY 1+ 02/06/2025 3:05 PM CDT [facility] PLT EST. ADEQUATE 02/06/2025 3:05 PM CDT [facility] 02/06/2025 2:05 PM CDT Ramila Phillips PA-C LABORATORY Final Resul t [facility] [address] [place] [id number], [place] [phone] * TROPONIN, QUANT (02/06/2025 2:05 PM CDT) TROPONIN I HIGH SENSITIVITY 25 <79 ng/L 02/06/2025 3:00 PM CDT [facility] Comment: HIGH DOSES OF BIOTIN, TROPONIN-SPECIFIC AUTOANTIBODIES, AND ANTIBODY THERAPY CONTAINING HAMA MAY INTERFERE WITH THIS TEST RESULT. CORRELATION TO CLINICAL HISTORY AND PRESENTATION RECOMMENDED. 02/06/2025 2:05 PM CDT us Ramila Phillips PA-C LABORATORY Final Resul t [facility] [address] [place] [address], [place] [phone] * LIPASE (02/06/2025 2:05 PM CDT) LIPASE 32 13 - 75 UNITS/L 02/06/2025 3:00 PM CDT [facility] 02/06/2025 2:05 PM CDT Ramila Phillips PA-C LABORATORY Final Resul t [facility] [address] [place] [address], [place] [phone] * URINALYSIS (02/06/2025 2:03 PM CDT) Pathologist [facility] SPECIMEN TYPE URINE CLEAN CATCH 02/06/2025 2:04 PM CDT [facility] COLOR (U) COLORLESS 02/06/2025 2:41 PM CDT [facility] TRANSPARENCY CLEAR 02/06/2025 2:41 PM CDT [facility] SPECIFIC GRAVITY (U) 1.003 1.001 - 1.030 02/06/2025 2:41 PM CDT [facility] U PH 6.5 5.0 - 9.0 02/06/2025 2:41 PM CDT [facility] LEUKOCYTES (U) NEGATIVE NEGATIVE 02/06/2025 2:41 PM CDT [facility] NITRITES NEGATIVE NEGATIVE 02/06/2025 2:41 PM CDT [facility] PROTEIN RANDOM (U) NEGATIVE <30 MG/DL 02/06/2025 2:41 PM CDT [facility] GLUCOSE (U) NORMAL NORMAL MG/DL 02/06/2025 2:41 PM CDT [facility] KETONES MG/DL (U) NEGATIVE NEGATIVE MG/DL 02/06/2025 2:41 PM CDT [facility] UROBILINOGEN NORMAL NORMAL MG/DL 02/06/2025 2:41 PM CDT [facility] BILIRUBIN (U) NEGATIVE NEGATIVE MG/DL 02/06/2025 2:41 PM CDT [facility] BLOOD (U) NEGATIVE NEGATIVE 02/06/2025 2:41 PM CDT [facility] URINE SPECIMEN OBTAINED BY CLEAN CATCH PROCEDURE / Unknown 02/06/2025 2:03 PM CDT us Ramila Phillips PA-C URINE ORDERABLES Final Resu lt [facility] [address] [place] [address], * ECG 12 lead (02/06/2025 1:55 PM CDT) 02/06/2025 1:55 PM CDT Narrative [facility] RAD - 02/06/2025 8:[address] PM [address]T [address] Test Date: 2025-02-06 Pat Name: CARLOS KELLY Department: 41 Room: [facility] Gender: Male 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
--- OUTSIDE RECORDS SUMMARY | 2025-04-04 08:23 | XMS_ITS | Patient Health Record ---
Author Organization [facility] [employer] Address [address] [facility] [address] [place] [address] Care Team Providers Care Broadcaster Name Role Phone John Mtz Unavailable [phone] Reason For Referral No Information Plan Of Treatment No Information
--- OUTSIDE RECORDS SUMMARY | 2025-04-04 08:23 | XMS_ITS | Patient Health Record ---
Author Organization [facility] Address [address] [address] Care Team Providers Care Terminal Superintendent Name Role Phone Charanjit Sheffield Primary [facility] [...] Once a day for 30 days Active Dhphxwlj-Avzkdyzmx-Nyqwojpo 0.1 % 1 application into the lower [...] Problem Status W/U Status Risk Notes Problem 407664200 Nausea (R11.0) Active confirmed Problem 97456366 Anxiety (F41.9) Active confirmed Problem 116248402 Gastroesophageal reflux disease without esophagitis (K21.9) Active confirmed Problem 384548635 Mild intermitten t asthma without complication (J45.20) Active confirmed Problem 98230283 Essential hypertension (I10) Active confirmed Problem 277716927 Vertigo (R42) Active confirmed Problem 29126994 Neck pain (M54.2) Active confirmed Problem 898111357 Type 2 diabetes mellitus without complication, without long-term current use of insulin (E11.9) Active confirmed Problem 99385944 Allergic rhiniti s due to other allergic trigger, unspecified seasonality (J30.89) Active confirmed Problem 212310179 S/P cholecystectomy (Z90.49) Active confirmed Problem 19664110 Discomfort of le ft eye (H57.12) Active confirmed Problem 787718335 Elevated LFTs (R79.89) Active confirmed Problem 26137792 Non-seasonal allergic rhinitis, unspecified trigger (J30.89) Active confirmed Problem 35809506 Recurrent major depressive disorder, in partial remission (F33.41) Active confirmed Problem 574596834 Cervical spondylosis (M47.812) Active confirmed Problem Depression (616002132) Depression (F32.9) Active confirmed Problem 863058978 Mixed hyperlipidemia (E78.2) Active confirmed Problem 186947823598 Type 2 diabetes mellitus with other specified complication (E11.69) Active confirmed Problem History of gastrointestinal disease (165089978) History of diverticulosis (Z87.19) Active confirmed Problem Abdominal pain (40413070) Abdominal pain (R10.9) Active confirmed Problem Pain in right arm (434279544) Right arm pain (M79.601) Active confirmed Plan Of Treatment No Information Insurance Providers Payer Name Payer Address Payer Phone Subscriber Number Group Number Insured Name Patient Relationship to Insured Coverage Start Date Coverage End Date [address] [id number] WADE KELLY Self - patient is the insured 9 Medical (General) History Medical History History ICD Code sinusitis Vertigo Asthma Sleep Apnea diverticulitis fatty liver 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
--- OUTSIDE RECORDS SUMMARY | 2025-04-04 08:23 | XMS_ITS | Patient Health Record ---
Author Organization [employer] Address [address] [facility] [address] [facility] [address] [place]pie [address] [place] [id number] Reason For Referral No Information Plan Of Treatment No Information
--- OUTSIDE RECORDS SUMMARY | 2025-04-04 08:23 | XMS_ITS | Encounter Summary ---
Author Organization [facility] Address [address] [place] [address] Care Team Providers Care Fence Installer Helper Name Role Phone None, Provider Primary Care Provider Alisson oliva Encounter Details Date Type Department Care Team (Late st Contact Info) Description 01/04/2020 Telephone [facility] [place] [address] Lee Ann Aguilar LCSW Social History Tobacco [...] documented as of this encounter Care Teams Fence Installer Helper Relationship Specialty Start Date End Date None, Provider, PCP - General 12/31/19 documented as of this encounter
--- OUTSIDE RECORDS SUMMARY | 2025-04-04 08:23 | XMS_ITS | Clinical Summary ---
Author Organization [facility] Address [address] [place] [address] Phone Care Team Providers Care Material Handler 2Nd Shift Name Role Phone Unavailable Primary Care Provider [...]
[2025-04-04 08:32] VITALS: BP 160/99; PULSE 65; RESP 20; TEMP 36.6; O2SAT 99
--- NOTE | 2025-04-04 09:00 | ED.EXTPRO ---
HPI - Extremity Problem General Chief complaint: Extremity Problem,Nontraumatic Stated complaint: R hip swollen/pain since Wednesday Time Seen by Provider: 04/04/25 09:00 Source: patient Mode of arrival: ambulatory Limitations: no limitations History of Present Illness HPI Narrative: 55 YEARS OLD WHITE MALE DROVE HIMSELF TO THE EMERGENCY ROOM COMPLAINING OF PAIN AT THE LATERAL SIDE OF THE RIGHT HIP RADIATING TO LOWER BACK STARTED 5 DAYS AGO. PATIENT DENIES ANY TRAUMA. PATIENT IS TELLING ME THAT HE COULD NOT SLEEP LAST NIGHT BECAUSE OF PAIN BEEN TAKING TYLENOL, IBUPROFEN WITHOUT SIGNIFICANT IMPROVED. HE DENIES ANY FEVER, CHILLS, VOMITING, ABDOMINAL PAIN, CHEST PAIN OR SHORTNESS OF BREATH. PATIENT REPORT INTERMITTENT NAUSEA WITH THE PAIN. Related Data Home Medications ?Medication ?Instructions ?Recorded ?Confirmed ?Last Taken ?Type potassium chloride 10 mEq 10 meq PO DAILY 06/09/23 07/26/24 08/18/24 History tablet,extended release omeprazole 40 mg capsule,delayed 40 mg PO DAILY 04/22/24 08/29/24 08/18/24 History release atenolol 50 mg tablet 50 mg PO Q24H 08/29/24 08/29/24 Unknown History Allergies Allergy/AdvReac Type Severity Reaction Status Date / Time Iodinated Contrast Media Allergy Severe Anaphylaxis Verified 03/29/25 08:39 metformin Allergy Severe Stopped Verified 03/29/25 08:39 Breathing Sulfa (Sulfonamide Allergy Severe Anaphylaxis Verified 03/29/25 08:39 Antibiotics) sulfamethoxazole Allergy Severe Anaphylaxis Verified 03/29/25 08:39 famotidine Allergy Intermediate Hives Verified 03/29/25 08:39 losartan Allergy Intermediate SWLLEING Verified 03/29/25 08:39 LIP AND HIVES nebivolol Allergy Intermediate LIP Verified 03/29/25 08:39 SWELLING Quinolones Allergy Intermediate Nervousness Verified 03/29/25 08:39 valsartan Allergy Intermediate HIVES/SOB Verified 03/29/25 08:39 amlodipine Allergy Mild HIVES Verified 03/29/25 08:39 azithromycin Allergy Mild Nervousness Verified 03/29/25 08:39 pantoprazole Allergy Mild Hives Verified 03/29/25 08:39 spironolactone Allergy Mild RASH AND Verified 03/29/25 08:39 ITCHING trimethoprim Allergy Mild RASH Verified 03/29/25 08:39 morphine Allergy Unknown Verified 03/29/25 08:39 cephalexin AdvReac Mild Nervousness Verified 03/29/25 08:39 flavoxate AdvReac Mild Nervousness Verified 03/29/25 08:39 levofloxacin AdvReac Mild Nervousness Verified 03/29/25 08:39 lidocaine AdvReac Mild Nervousness Verified 03/29/25 08:39 lisinopril AdvReac Mild Nervousness Verified 03/29/25 08:39 nitrofurantoin AdvReac Mild Nervousness Verified 03/29/25 08:39 oxycodone AdvReac Mild Nervousness Verified 03/29/25 08:39 paroxetine AdvReac Mild Nervousness Verified 03/29/25 08:39 Review of Systems Review of Systems: All systems reviewed & are unremarkable except as noted in HPI and below PMFSH Past Medical History Medical History Prediabetes Allergic rhinitis Chronic sinusitis Chronic post-traumatic stress disorder (PTSD) Anxiety Depression GERD (gastroesophageal reflux disease) Sleep apnea Asthma HTN (hypertension) CAD (coronary artery disease) history [place] Concussion Surgical History Surgical History H/O gastric bypass Hx of cholecystectomy History of cardiac cath History of colonoscopy Family History Family History Grandparent Family history of obesity Hypertension Diabetes mellitus Mother Depression Patient's mother is in good health Family history of mental disorder Father Hypertension Patient's father is in good health Family history of alcoholism Cerebrovascular accident Sibling Patient's sister is in good health Patient's brother is in good health Father Cerebrovascular accident Alcoholism Hypertension Heart disease Mother Family history of malignant neoplasm Depression Hypertension Other Family history of cardiovascular disease Social History Social History Smoking status: Former smoker Smoking end date: 09/13/95 Alcohol intake: former Substance use: never Substance use type: opiates Lack of Transportation: No Lack of Food: Never True Current Housing: I Have Housing Concerned About Future Housing: No Difficulty Paying Gas/Electric Bills: No Difficulty Paying for Meds: No Currently Unemployed: No Education: Master's Degree or Higher Difficulty w/ Childcare or Family Care: No Living arrangements: alone Occupation/Education: occupation Gender identity (if verbalized by the patient): Male Sexual Orientation (if Verbalized by the Patient): Straight or Heterosexual Spiritual care concerns: No Exam Narrative: GENERAL APPEARANCE: WELL-DEVELOPED, WELL-NOURISHED SKIN: NORMAL COLOR HEAD: NORMOCEPHALIC, NONTRAUMATIC EYES: CLEAR CONJUNCTIVA ENT: OROPHARYNX NORMAL, EARS NORMAL, NOSE NORMAL NECK: SUPPLE, NONTENDER CHEST AND RESPIRATORY: AIRWAY PATENT, NO RESPIRATORY DISTRESS, NO ACCESSORY MUSCLE USE HEART: REGULAR RATE/RHYTHM ABDOMEN: SOFT, NONTENDER, NO ORGANOMEGALY, QUIET BOWEL SOUNDS VASCULAR: NORMAL PERIPHERAL PULSES, NORMAL CAPILLARY REFILL. MUSCULOSKELETAL: DIFFUSE TENDERNESS RIGHT HIP LATERALLY, NO BRUISES, NO SWELLING, NO RASH, DIFFUSE TENDERNESS LUMBAR AREA AND SLIGHT LIMITED RANGE OF MOTION OF THE HIP AND LOWER BACK BECAUSE OF PAIN NEUROLOGIC: ALERT AND ORIENTED ?3, BASKETBALL COACH IS NORMAL TESTED, NO GROSS MOTOR DEFICIT Course Vital Signs Vital signs: Vital Signs Temperature 36.6 C 04/04/25 08:32 Pulse Rate 65 04/04/25 08:32 Respiratory Rate 20 04/04/25 08:32 Blood Pressure 160/99 H 04/04/25 08:32 Pulse Oximetry 99 04/04/25 08:32 Oxygen Delivery Room Air 04/04/25 08:32 Temperature 36.6 C 04/04/25 08:32 Pulse Rate 54 L 04/04/25 12:02 Respiratory Rate 18 04/04/25 12:02 Blood Pressure 164/90 H 04/04/25 12:02 Pulse Oximetry 99 04/04/25 12:02 Oxygen Delivery Room Air 04/04/25 08:32 MDM - Extremity (Nontraumatic) MDM Narrative Medical decision making narrative: PATIENT CAME WITH RIGHT HIP AND LOWER BACK PAIN, NONTRAUMATIC. PATIENT WAS CONCERN ABOUT KIDNEY STONE, COMPLAIN OF RIGHT FLANK PAIN, CT ABDOMEN AND PELVIS WITH DOUBT CONTRAST SHOWED PROXIMAL SIGMOID MASS, PATIENT REPORT HAVING THIS MASS FOR 2-3 YEARS, HAS BEEN TAKING CARE OF BY ONCOLOGIST AND COLORECTAL PHYSICIANS AND WAS TOLD THAT THE MASS IS BENIGN/SCAR TISSUE. PATIENT IS TELLING ME THAT HE IS ALLERGIC TO ANTI-INFLAMMATORY MEDICATIONS, CANNOT TAKE TRAMADOL OF, THE ONLY MEDICINE WORK WITH HIM IS [employer]. PATIENT'S CONCERN ABOUT ANTI-INFLAMMATORY CAUSING GI BLEED AND KIDNEY FAILURE. DIAGNOSIS RIGHT TROCHANTERIC BURSITIS, LOWER BACK PAIN, SIGMOID MASS DISCHARGED ON CYCLOBENZAPRINE, AND NORCO Differential Diagnosis Differential diagnosis: Likely other (MUSCULOSKELETAL PAIN, BURSITIS) Medical Records Attestation: I reviewed the patient's medical records. Lab Data 04/04/25 12:20 04/04/25 12:20 Labs: Lab Results 04/04/25 04/04/25 Range/Units 10:44 12:20 WBC 6.5 (4.5-10.0) K/mm3 RBC 5.95 (4.6-6.20) M/mm3 Hgb 12.2 L (14.0-18.0) g/dL Hct 40.9 L (42.0-52.0) % MCV 68.7 L (80-100) fl MCH 20.5 L (26-34) pg MCHC 29.8 L (32-36) g/dl RDW 18.6 H (11.5-14.5) % Plt Count 184 (150-375) k/mm3 MPV 9.0 (7.4-10.4) fl Immature Gran % (Auto) 0.2 (0-0.5) % Neut % (Auto) 69.0 (45.5-73.1) % Lymph % (Auto) 22.5 (18.3-44.2) % [place] % (Auto) 5.7 (2.6-8.5) % Eos % (Auto) 2.0 (0-4.4) % Baso % (Auto) 0.6 (0.2-1.2) % Lymph # (Auto) 1.46 (0.9-3.2) K/mm3 [place] # (Auto) 0.4 (0.1-0.6) K/mm3 Eos # (Auto) 0.1 (0-0.3) K/mm3 Baso # (Auto) 0.0 (0.0-0.1) K/mm3 Abs Immat Gran (auto) 0.01 (0.00-0.031) K/mm3 Absolute Neuts (auto) 4.5 (1.3-6.7) K/mm3 Absolute Nucleated RBC 0.000 (0.0-0.012) K/mm3 Band Neutrophils % Pending Nucleated RBC % 0.0 (0.0-0.2) % Platelet Estimate Pending Schistocytes Pending Sodium Pending Potassium Pending Chloride Pending Carbon Dioxide Pending Anion Gap Pending BUN Pending Creatinine Pending Estim Creat Clear Calc Pending Estimated GFR Pending Glucose Pending Calcium Pending Total Bilirubin Pending AST Pending ALT Pending Alkaline Phosphatase Pending Total Protein Pending Albumin Pending Lipase Pending Urine Color Dark yellow (Yellow) Urine Appearance Clear (Clear) Urine pH 6.5 (5.0-9.0) Ur Specific [place] 1.020 (1.001-1.035) Urine Protein Trace (Negative) mg/dL Urine Glucose (UA) Negative (Negative) mg/dL Urine Ketones Trace H (Negative) mg/dL Ur Blood (Man) Negative (Negative) Urine Nitrate Negative (Negative) Urine Bilirubin Negative (Negative) Urine Urobilinogen 1.0 (<2.0) mg/dL Leukocyte Esterase Rfl Negative (Negative) KENNY/UL Urine RBC 0-2 (0-2) /hpf Urine WBC 0-5 (0-3) /hpf Ur Squamous Epith Cells None seen (Few) /hpf Urine Bacteria None seen /hpf Urine Casts 3-5 Imaging Data Radiologist's impression: Impressions Miscellaneous CT Procedure 04/04/25 09:41 IMPRESSION: 1. Large mass in the proximal sigmoid colon, measuring up to 4.5 cm in maximum dimension, highly concerning for malignancy. GI consultation and colonoscopy is recommended. 2. Splenomegaly. Critical Care Time Critical Care Time Critical Care Time: No Discharge Plan Discharge Clinical Impression: Bursitis, trochanteric, Lower back pain, Colonic mass Patient Disposition: Home Condition: Stable Instructions: Hip Bursitis (ED), Acute Low Back Pain (ED) Additional Instructions: RETURN IF SYMPTOMS ARE WORSENING , CALL YOUR FAMILY PHYSICIAN FOR APPOINTMENT, TAKE TYLENOL NEEDED FOR ACHES AND PAIN, CONTINUE HOME MEDICATIONS. Patient Language: Ukrainian Prescriptions: New hydrocodone-acetaminophen 5-325 mg tablet 1 tablet PO Q4H Qty: 12 0RF No Action potassium chloride 10 mEq tablet extended release 10 meq PO DAILY omeprazole 40 mg capsule,delayed release(DR/EC) 40 mg PO DAILY atenolol 50 mg tablet 50 mg PO Q24H Patient Comments: PT STATES HE IS NOW TAKING 100MG PO DAULY cyclobenzaprine 10 mg tablet 10 mg PO TID PRN (Reason: muscle spasm) Qty: 10 0RF prednisone 20 mg tablet See Rx Instructions .ROUTE .COMPLEX Qty: 9 0RF Rx Instructions: 40 mg daily x3 days, 20 mg daily x3 days amoxicillin-pot clavulanate 875-125 mg tablet 1 tablet PO Q12H 10 Days Qty: 20 0RF atenolol 100 mg tablet 100 mg PO DAILY Qty: 30 0RF albuterol sulfate 90 mcg/actuation HFA aerosol inhaler 2 puff inhalation Q4-6H PRN (Reason: shortness of breath or wheezing) 30 Days Qty: 8.5 0RF fluticasone propionate [Flonase Allergy Relief] 50 mcg/actuation spray,suspension 1 spray intranasal BID Qty: 16 0RF Rx Instructions: administer into each nostril (DME) Aerochamber Plus Z Stat Spacer See Rx Instructions .Route Qty: 1 0RF Rx Instructions: As directed atenolol 100 mg tablet 100 mg PO DAILY Qty: 30 0RF atenolol 100 mg tablet 100 mg PO DAILY Qty: 30 0RF neomycin-polymyxin B-dexameth 3.5 mg/g-10,000 unit/g-0.1 % ointment 1 applic EACH EYE Q6H Qty: 3.5 0RF omeprazole 40 mg capsule,delayed release(DR/EC) 40 mg PO DAILY Qty: 30 0RF fluticasone propionate [Flonase Allergy Relief] 50 mcg/actuation spray,suspension 1 spray intranasal DAILY Qty: 16 0RF Rx Instructions: administer into each nostril cyclobenzaprine 10 mg tablet 10 mg PO BID PRN (Reason: muscle spasm) Qty: 14 0RF promethazine 25 mg tablet 25 mg PO TID PRN (Reason: nausea and vomiting) Qty: 20 0RF ferrous sulfate 325 mg (65 mg iron) tablet 325 mg PO DAILY Qty: 90 1RF escitalopram oxalate [Lexapro] 20 mg tablet 20 mg PO DAILY Qty: 30 5RF Follow-up/Referrals: PHYSICIAN,REPORTS ANALYST [Primary Care Provider] -
[2025-04-04] MEDS: IBUPROFEN 600 MG TABLET PO (09:17)
[2025-04-04] MEDS: ACETAMINOPHEN 500 MG TABLET 1000 MG PO (09:17)
--- OUTSIDE RECORDS SUMMARY | 2025-04-04 09:22 | XMS_ITS | Encounter Summary ---
Author Organization [employer] Address 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
--- OUTSIDE RECORDS SUMMARY | 2025-04-04 09:22 | XMS_ITS | Encounter Summary ---
Author Organization [employer] [facility] Address [address] [place] [address] Care Team Providers Care It Infrastructure Architect Name Role Phone Howard Trinidad MD Primary Care Provider Un available Encounter Details Date Type Department Care Team (Late st Contact Info) Description 03/02/2004 [facility] Ian Gauthier [id number] [place] [id number] Er, Authorized P NO ADDRESS ON FILE ANXIETY STATE NOS (Primary Dx) Social History Tobacco Use Types Packs/Day Years Used Date Smoking Tobacco: Never Assessed Sex and Gender Information Value Date Recorded Sex Assigned at Not on file 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
--- OUTSIDE RECORDS SUMMARY | 2025-04-04 09:22 | XMS_ITS | Encounter Summary ---
Author Organization [employer] Address 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
--- OUTSIDE RECORDS SUMMARY | 2025-04-04 09:22 | XMS_ITS | Encounter Summary ---
Author Organization [employer] Address 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
--- OUTSIDE RECORDS SUMMARY | 2025-04-04 09:22 | XMS_ITS | Encounter Summary ---
Author Organization [employer] Address 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
--- OUTSIDE RECORDS SUMMARY | 2025-04-04 09:22 | XMS_ITS | Encounter Summary ---
Author Organization [employer] Address 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
--- OUTSIDE RECORDS SUMMARY | 2025-04-04 09:22 | XMS_ITS | Encounter Summary ---
Author Organization [employer] Address 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
--- OUTSIDE RECORDS SUMMARY | 2025-04-04 09:22 | XMS_ITS | Clinical Summary ---
Author Organization [facility] Address [address] [place] [address] Phone Care Team Providers Care Flavoring Machine Operator Name Role Phone Unavailable Primary [...]
--- OUTSIDE RECORDS SUMMARY | 2025-04-04 09:22 | XMS_ITS | Encounter Summary ---
Author Organization [employer] Address [address] [place] [address] Care Team Providers Care Doorperson Or Luggage Porter Name Role Phone Howard Trinidad MD Primary Care Provider Un available Encounter Details Date Type Department Care Team (Late st Contact Info) Description 07/01/2006 Outpatient Historical [facility] Support Serv. ([facility]) [address] 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
--- OUTSIDE RECORDS SUMMARY | 2025-04-04 09:22 | XMS_ITS | Encounter Summary ---
Author Organization [employer] Address 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
--- OUTSIDE RECORDS SUMMARY | 2025-04-04 09:22 | XMS_ITS | Encounter Summary ---
Author Organization [employer] Address [address] [place] [address] Care Team Providers Care Cosmetic Counselor Name Role Phone Howard Trinidad MD Primary Care Provider Un available Encounter Details Date Type Department Care Team (Late st Contact Info) Description 02/23/2007 Emergency [facility] Ian Gauthier [id number] [place] [address] Er, Authorized P NO ADDRESS ON FILE Anxiety State, Unspecified (Primary Dx) Social History Tobacco Use Types Packs/Day Years Used Date Smoking Tobacco: Never Assessed Sex and Gender Information Value Date Recorded Sex Assigned at Not on file Legal Sex Male 4:57 AM SAND CARRIER Gender Identity Not on file Sexual Orientation Not on file documented as of this encounter Plan of Treatment Not on file documented as of this encounter Visit Diagnoses Diagnosis Anxiety state, unspecified- Primary documented in this encounter Care Teams Cosmetic Counselor Relationship Specialty Start Date End Date Howard Trinidad MD PCP - General Family Practice 01/25/16 01/26/16 documented as of this encounter
--- OUTSIDE RECORDS SUMMARY | 2025-04-04 09:22 | XMS_ITS | Encounter Summary ---
Author Organization [employer] Address 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
--- OUTSIDE RECORDS SUMMARY | 2025-04-04 09:22 | XMS_ITS | Encounter Summary ---
Author Organization [employer] Address 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
--- OUTSIDE RECORDS SUMMARY | 2025-04-04 09:22 | XMS_ITS | Encounter Summary ---
Author Organization [employer] Address [address] [place] [address] Care Team Providers Care Clothing And Textiles Teacher Name Role Phone Howard Trinidad MD Primary Care Provider Un available Encounter Details Date Type Department Care Team (Late st Contact Info) Description 03/02/2005 Outpatient Historical [facility] Support Serv. ([facility] Cardiology[facility]) [address] 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
--- OUTSIDE RECORDS SUMMARY | 2025-04-04 09:22 | XMS_ITS | Encounter Summary ---
Author Organization [employer] Address 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
--- OUTSIDE RECORDS SUMMARY | 2025-04-04 09:22 | XMS_ITS | Encounter Summary ---
Author Organization [employer] Address [address] [place] [address] Care Team Providers Care Stitchdown Thread Laster Name Role Phone Howard Trinidad MD Primary Care Provider Un available Encounter Details Date Type Department Care Team (Late st Contact Info) Description 07/01/2006 Emergency [facility] Stanton Summers MD NO ADDRESS ON FILE Er, Authorized P NO ADDRESS ON FILE Unspecified Sinusitis (Chronic) (Primary Dx) Social History Tobacco Use Types Packs/Day Years Used Date Smoking Tobacco: Never Assessed Sex and Gender Information Value Date Recorded Sex Assigned at Not on file Legal Sex Male 4:57 AM PACKAGE PICK UP Gender Identity Not on file Sexual Orientation Not on file documented as of this encounter Plan of Treatment Not on file documented as of this encounter Visit Diagnoses Diagnosis Unspecified sinusitis (chronic)- Primary documented in this encounter Care Teams Stitchdown Thread Laster Relationship Specialty Start Date End Date Howard Trinidad MD PCP - General Family Practice 01/25/16 01/26/16 documented as of this encounter
--- OUTSIDE RECORDS SUMMARY | 2025-04-04 09:22 | XMS_ITS | Encounter Summary ---
Author Organization [employer] Address [address] [place] [address] Care Team Providers Care Bed Operator Name Role Phone Howard Trinidad MD Primary Care Provider Un available Encounter Details Date Type Department Care Team (Late st Contact Info) Description 04/27/2009 Emergency [facility] Er, Authorized P NO ADDRESS ON FILE Balta Sahu MD [address] [place] [address] [place] [address] Edin Marcum MD [facility] [place] [address] Social History Tobacco Use Types Packs/Day Years Used Date Smoking Tobacco: Never Assessed Sex and Gender Information Value Date Recorded Sex Assigned at Not on file 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 FINDINGS: The heart and mediastinum are normal. There is no infiltrate, contusion, pneumothorax or pleural fluid. The visualized bony thorax is normal. IMPRESSION: Normal AP chest. . Dictated by: LEANDER GORDON 04/27/2009 07:51 Electronically signed by: LEANDER GORDON 04/27/2009 08:07 Transcribed: 04/27/2009 07:56 SMM Procedure Note Leander Gordon - 04/27/2009 [address] [place], [place] [address] Admit Date: 04/27/2009 CARLOS KELLY Sex: M Admit Prov: BALTA SAHU Date: 1970 Primary Care Prov: CMRN: [id number] [facility] [address] [place] [address] IMAGING SERVICES Ordering Prov: N/A Interpretation PORTABLE [...] CDT) MCH 27.8 27.2 - 32.6 pg [facility] MPV 9.7 9.3 - 12.4 fL [facility] HEMATOCRIT 42.4 40.0 - 48.0 % [facility] RDW-STDEV 41.9 37.1 - 48.7 fL [facility] RBC 5.29 4.50 - 5.40 M/uL [facility] MCHC 34.7 31.5 - 35.5 % [facility] MCV 80.2(L) 82.0 - 99.0 fL [facility] PLATELETS 187 140 - 350 K/uL [facility] HEMOGLOBIN 14.7 13.6 - 16.5 g/dL [facility] RDW 14.7(H) 11.5 - 14.5 % [facility] WBC 7.2 4.0 - 9.8 K/uL [facility] BASOPHILS 0 0 - 2 % [facility] BASOPHILS ABSOLUTE 0.02 0.00 - 0.20 K/uL [facility] MONOCYTES 8 3 - 13 % [facility] MONOCYTE ABSOLUTE 0.56 0.10 - 1.30 K/uL [facility] NEUTROPHILS 56 45 - 70 % [facility] NEUTROPHIL ABSOLUTE 4.00 1.90 - 7.00 K/uL [facility] EOSINOPHILS 2 0 - 7 % [facility] EOSINOPHIL ABSOLUTE 0.16 0.00 - 0.70 K/uL [facility] LYMPHOCYTES 34 16 - 45 % [facility] LYMPHOCYTE ABSOLUTE 2.43 0.70 - 4.50 K/uL [facility] Blood specimen (specimen) 04/27/2009 12:08 AM CDT 04/27/2009 12:13 AM CDT Edin Marcum MD HEMATOLOGY ORDERABLES Edited Performing Organization Address [facility] Co de Phone Number [facility] CLIA# [id number] [address] [place] [address] * CARDIAC ENZYMES (04/27/2009 12:08 AM CDT) Pathologist [facility] TROPONIN T <0.01 <=0.03 ng/mL [facility] TROPONIN T INTERP Negative [facility] Blood specimen (specimen) 04/27/2009 12:08 AM CDT 04/27/2009 12:13 AM CDT Edin Marcum MD CHEMISTRY ORDERABLES Edited Performing Organization Address [facility] de Phone Number [facility] CLIA# [id number] [address] [place] [address] * (ABNORMAL) COMPREHENSIVE METABOLIC PANEL (04/27/2009 12:08 AM CDT) CREATININE 0.92 0.67 - 1.17 mg/dL [facility] ALT 130(H) 0 - 41 U/L [facility] SODIUM 141 135 - 145 mmol/L [facility] ALKALINE PHOSPHATASE 71 40 - 129 U/L [facility] CO2 32(H) 22 - 30 mmol/L [facility] BILIRUBIN TOTAL 1.2(H) 0.2 - 1.0 mg/dL [facility] POTASSIUM 3.7 3.5 - 4.9 mmol/L [facility] TOTAL PROTEIN 8.3 6.3 - 8.6 g/dL [facility] GLUCOSE 81 65 - 99 mg/dL [facility] AST 118(H) 12 - 38 U/L [facility] BUN 10 6 - 20 mg/dL [facility] CALCIUM 9.7 8.6 - 10.2 mg/dL [facility] ALBUMIN 4.6 3.4 - 4.8 g/dL [facility] CHLORIDE 101 96 - 108 mmol/L [facility] GFR, >60 >=60 mL/min/1. 7 sq meter [facility] GFR >60 >=60 mL/min/1. 7 sq meter [facility] Comment: Modification of Diet in Renal Disease (MDRD) study formula. Estimated GFR rate interpretative information for both Americans and non- Americans is available on the [facility] at: [email or web address] Select: Lab Policies and Procedures Select: Reference Ranges - GFR Blood specimen (specimen) 04/27/2009 12:08 AM CDT 04/27/2009 12:13 AM CDT us Edin Marcum MD CHEMISTRY ORDERABLES Edited [facility] CLIA# [id number] [address] [place] [address] documented in this encounter Visit Diagnoses Not on filedocumented in this encounter Care Teams Bed Operator Relationship Specialty Start Date End Date Howard Trinidad MD PCP - General Family Practice 01/25/16 01/26/16 documented as of this encounter
--- OUTSIDE RECORDS SUMMARY | 2025-04-04 09:22 | XMS_ITS | Clinical Summary ---
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 Gender Identity Not on file Sexual Orientation Not on file Occupation Industry Job Start Date Job End Date Not on file Not on file Not on file Not on file Not on file Not on file Not on file Not on file Last Filed Vital Signs Vital Sign Reading Time Taken Comments Blood Pressure 152/94 11/18/2019 7:07 AM PROPULSION MOTOR AND GENERATOR REPAIRER Pulse 66 11/18/2019 7:07 AM PROPULSION MOTOR AND GENERATOR REPAIRER Temperature 36.7 C (98.1 F) 11/18/2019 5:34 AM PROPULSION MOTOR AND GENERATOR REPAIRER Respiratory Rate 18 11/18/2019 7:07 AM PROPULSION MOTOR AND GENERATOR REPAIRER Oxygen Saturation 98% 11/18/2019 7:07 AM PROPULSION MOTOR AND GENERATOR REPAIRER Inhaled Oxygen Concentration - - Weight 120.2 kg (265 lb) 11/18/2019 5:34 AM PROPULSION MOTOR AND GENERATOR REPAIRER Height 188 cm (6' 2) 11/18/2019 5:34 AM PROPULSION MOTOR AND GENERATOR REPAIRER Body Mass Index 34.02 11/18/2019 5:34 AM PROPULSION MOTOR AND GENERATOR REPAIRER Plan of Treatment Health Maintenance Due Date [...] (1 of 2) 02/09/2022 INFLUENZA VACCINE (#1) 2025 Procedures Procedure Name Priority Date/Time Associated Diagnosis Comments HEMOGLOBIN A1C Add on 07/02/2015 2:10 AM CDT from Last 3 Months or Most Recently Relevant to Health Maintenance Results * (ABNORMAL) HEMOGLOBIN A1C (07/02/2015 2:10 AM CDT) HEMOGLOBIN A1C 6.5(H) 4.1 - 6.1 % 07/02/2015 5:25 PM CDT [facility] Link Medicine [facility] EST. AVG GLUCOSE, A1C 140 mg/dL 07/02/2015 5:25 PM CDT [facility] Blood Venipuncture - Floor Collect / Unknown 07/02/2015 2:10 AM CDT 07/02/2015 2:11 AM CDT Narrative [facility] - 07/02/2015 5:25 PM CDT Based on the ADAG study equation. us Iwona Arteaga APN CHEMISTRY ORDERABLES Final R esult [facility] CLIA# [id number] [address] [place] [address] from Last 3 Months or Most Recently Relevant to Health Maintenance Insurance MEDICAID Advance Directives For more information, please contact: [phone] * Full Code (Latest Code Status on File) Date Activated Date Inactivated Comments 07/02/2015 8:36 AM 07/02/2015 8:02 PM * Full Code Date Activated Date Inactivated Comments 08/28/2014 2:37 PM 08/28/2014 5:13 PM
--- OUTSIDE RECORDS SUMMARY | 2025-04-04 09:23 | XMS_ITS | Encounter Summary ---
Author Organization [employer] Address [address] [place] [address] Care Team Providers Care Senior Executive Assistant Name Role Phone Howard Trinidad MD Primary Care Provider Un available Encounter Details Date Type Department Care Team (Late st Contact Info) Description 03/17/2003 Emergency [facility] Venus Sotelo MD [address] [place] [address] Er, Authorized P NO ADDRESS ON FILE DEPRESSIVE DISORDER NEC (Primary Dx) Social History Tobacco Use Types Packs/Day Years Used Date Smoking Tobacco: Never Assessed Sex and Gender Information Value Date Recorded Sex Assigned at Not on file Legal Sex Male 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
--- OUTSIDE RECORDS SUMMARY | 2025-04-04 09:23 | XMS_ITS | Encounter Summary ---
Author Organization [employer] Address 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. He indicated he had called PCP [...] on filedocumented in this encounter Care Teams [facility] Relationship Specialty Start Date End Date Howard Trinidad MD PCP - General Family Practice 01/25/16 01/26/16 documented as of this encounter
--- OUTSIDE RECORDS SUMMARY | 2025-04-04 09:23 | XMS_ITS | Encounter Summary ---
Author Organization [employer] Address 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 Medications: [facility] review Medication reactions: epic review <<<<<<<< TRIAGE NOTE >>>>>>>> Triage Note: Tutor Seema Cueva added this note on Dec [...] they will have to speak with his video control operator because he is upset with the [...] on filedocumented in this encounter Care Teams Grades 9 Thru 12 Visiting Teacher Relationship Specialty Start Date End Date Howard Trinidad MD PCP - General Family Practice 01/25/16 01/26/16 documented as of this encounter
--- OUTSIDE RECORDS SUMMARY | 2025-04-04 09:23 | XMS_ITS | Encounter Summary ---
Author Organization [employer] Address 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
[2025-04-04 10:01] VITALS: BP 133/75; PULSE 57; RESP 20; O2SAT 99
[2025-04-04 10:59] LABS: Add Urine Microscopic? YES; Appearance Urine Clear (Clear); Glucose Urine UA Negative (Negative); Leukocyte Esterase Ur Negative LEU/UL (Negative); Nitrate Urine Negative (Negative); Specific Grav Ur 1.020 (1.001-1.035)
--- NOTE | 2025-04-04 10:59 | PC.NURSE ---
Pt declining lab draw until the doctor needs to come talk to me before I let anyone stick a needle in my arm. EDP Dr Zimmer made aware.
[2025-04-04 12:02] VITALS: BP 164/90; PULSE 54; RESP 18; O2SAT 99
[2025-04-04 12:31] LABS: Hematocrit 40.9 % (42.0-52.0); Hemoglobin 12.2 g/dL (14.0-18.0); Immature Granulocyte Percent A 0.2 % (0-0.5); Lymphocytes Absolute Auto 1.46 K/mm3 (0.9-3.2); Mean Corpuscular HGB Conc 29.8 g/dl (32-36); Mean Corpuscular Hemoglobin 20.5 pg (26-34); Mean Corpuscular Volume 68.7 fl (80-100); Nucleated Red Blood Cells Absolute Auto 0.000 K/mm3 (0.0-0.012); Nucleated Red Blood Cells Perc 0.0 % (0.0-0.2); Platelet Count Result 184 k/mm3 (150-375); Red Blood Count 5.95 M/mm3 (4.6-6.20); White Blood Count 6.5 K/mm3 (4.5-10.0)
[2025-04-04 12:49] LABS: Alanine Aminotransferase 27 U/L (6-50); Albumin Level 4.7 g/dL (3.5-5.1); Alkaline Phosphatase 68 U/L (38-126); Anion Gap 10 mmol/L (4-12); Aspartate Amino Transferase 31 U/L (17-59); Bilirubin,Total 1.4 mg/dL (0.2-1.3); Blood Urea Nitrogen 11 mg/dL (9-20); Calcium 9.3 mg/dL (8.4-10.2); Carbon Dioxide 28 mmol/L (22-30); Chloride 100 mmol/L (98-107); Estimated CRCL calculation 96 ml/min; Estimated Glomerular Filt Rate > 60; Glucose 105 mg/dL (65-110); Lipase 88 U/L (23-300); Potassium 3.4 mmol/L (3.4-5.0); Sodium 138 mmol/L (137-145); Total Protein 8.5 g/dL (6.3-8.2)
[2025-04-04 12:51] LABS: Anisocytosis 1+; Hypochromasia 1+; Schistocytes None Seen
[2025-04-04 12:52] LABS: Microcytosis 1+ (NORMAL); Ovalocytes 1+
[2025-04-04 13:16] VITALS: BP 138/77; PULSE 54; RESP 17; O2SAT 100
--- NOTE | 2025-04-04 14:16 | PCCCNOTE ---
Received a call from [facility] in [place] in [place]. The pt had a question on OTC medication to take. Instructed with a hx of epigastic pain, abd pain to take no more than 3000mg of APAP/day keeping in mind the APAP noted in the Hydrocodone. Also to please f/u wtih the PCP as instructed for further recommendations in which Dr. Zimmer is agreeable with the plan.-bharti
== END 2025-04-04 13:18 | disposition home or self-care (01) ==
PROVIDERS: Emergency Provider Emergency Medicine
DX: M70.61 Trochanteric bursitis, right hip (principal); K63.9 Disease of intestine, unspecified; M54.50 Low back pain, unspecified; I10 Essential (primary) hypertension; I25.10 Atherosclerotic heart disease of native coronary artery without angina pectoris; J32.9 Chronic sinusitis, unspecified; J45.909 Unspecified asthma, uncomplicated; R73.03 Prediabetes; K21.9 Gastro-esophageal reflux disease without esophagitis; G47.30 Sleep apnea, unspecified; F41.9 Anxiety disorder, unspecified; F32.A Depression, unspecified; Z98.84 Bariatric surgery status; Z87.891 Personal history of nicotine dependence; Z90.49 Acquired absence of other specified parts of digestive tract; R16.1 Splenomegaly, not elsewhere classified; Z79.899 Other long term (current) drug therapy
CPT/HCPCS: 36415; 72131; 74176; 80053; 81001; 83690; 85025; 99284; A9270

== ENCOUNTER 2025-04-17 17:43 | Emergency (ER) | payer OTHER, SELFPAY ==
[2025-04-17 17:53] VITALS: BP 145/88; PULSE 64; RESP 14; TEMP 37; O2SAT 100
[2025-04-17 18:34] LABS: EDSTREPNEGPOS1 Negative (Negative)
[2025-04-17 18:35] LABS: EDUAAPPEAR Clear; EDUABILI 2+ (Negative); EDUABLOOD Negative (Negative); EDUACOLOR1 Amber; EDUAGLUCOSE Negative (Negative); EDUAKETONE 1+ (Negative); EDUALEUKO Negative (Negative); EDUANITRATE Negative (Negative); EDUAPH 6.0; EDUAPROTEIN 2+ (Negative); EDUASPGRAVITY 1.020; EDUAUROBILI 2.0
--- NOTE | 2025-04-17 18:39 | ED.GENADULT ---
HPI - General Adult General Chief complaint: Upper Respiratory Infection Stated complaint: rib pain/sinus congestion Time Seen by Provider: 04/17/25 17:44 Source: patient Mode of arrival: ambulatory Limitations: no limitations History of Present Illness HPI narrative: Patient presents for evaluation of sinus symptoms for last 3 days. Symptoms include sinus congestion, thick green/yellow nasal drainage, sore throat and fever. He has had sinus infections in the past and this feels similar. He typically takes Cipro despite allergy to fluoroquinolones listed in chart. He states that medication is effective and he does not have an allergic response to it. No recent sick contacts to his knowledge. He is also wondering whether his urinary tract infection. He has some suprapubic pressure without other significant urinary symptoms. No fever, chills, nausea, vomiting, cough, shortness of breath. he is also requesting a refill on omeprazole. He states he can tolerate this despite listed pantoprazole allergy. Related Data Home Medications ?Medication ?Instructions ?Recorded ?Confirmed ?Last Taken ?Type potassium chloride 10 mEq 10 meq PO DAILY 06/09/23 07/26/24 08/18/24 History tablet,extended release omeprazole 40 mg capsule,delayed 40 mg PO DAILY 04/22/24 08/29/24 08/18/24 History release alprazolam 2 mg tablet mg 04/17/25 Unknown History Allergies Allergy/AdvReac Type Severity Reaction Status Date / Time Iodinated Contrast Media Allergy Severe Anaphylaxis Verified 04/17/25 17:55 metformin Allergy Severe Stopped Verified 04/17/25 17:55 Breathing Sulfa (Sulfonamide Allergy Severe Anaphylaxis Verified 04/17/25 17:55 Antibiotics) sulfamethoxazole Allergy Severe Anaphylaxis Verified 04/17/25 17:55 famotidine Allergy Intermediate Hives Verified 04/17/25 17:55 losartan Allergy Intermediate SWLLEING Verified 04/17/25 17:55 LIP AND HIVES nebivolol Allergy Intermediate LIP Verified 04/17/25 17:55 SWELLING Quinolones Allergy Intermediate Nervousness Verified 04/17/25 17:55 valsartan Allergy Intermediate HIVES/SOB Verified 04/17/25 17:55 amlodipine Allergy Mild HIVES Verified 04/17/25 17:55 azithromycin Allergy Mild Nervousness Verified 04/17/25 17:55 pantoprazole Allergy Mild Hives Verified 04/17/25 17:55 spironolactone Allergy Mild RASH AND Verified 04/17/25 17:55 ITCHING trimethoprim Allergy Mild RASH Verified 04/17/25 17:55 morphine Allergy Unknown Verified 04/17/25 17:55 cephalexin AdvReac Mild Nervousness Verified 04/17/25 17:55 flavoxate AdvReac Mild Nervousness Verified 04/17/25 17:55 levofloxacin AdvReac Mild Nervousness Verified 04/17/25 17:55 lidocaine AdvReac Mild Nervousness Verified 04/17/25 17:55 lisinopril AdvReac Mild Nervousness Verified 04/17/25 17:55 nitrofurantoin AdvReac Mild Nervousness Verified 04/17/25 17:55 oxycodone AdvReac Mild Nervousness Verified 04/17/25 17:55 paroxetine AdvReac Mild Nervousness Verified 04/17/25 17:55 Review of Systems Review of Systems: CONSTITUTIONAL: Denies fever, chills, or sweats. EYES: Denies visual changes, redness, or discharge. ENT: Reports Sore throat, sinus congestion and thick yellow drainage from the nares. Denies otalgia. CARDIOVASCULAR: Denies chest pain, palpitations, or edema. RESPIRATORY: Denies cough or dyspnea. GASTROINTESTINAL: Denies abdominal pain, nausea, vomiting, or diarrhea. GENITOURINARY: Reports suprapubic pressure. Denies dysuria or hematuria. SKIN: Denies rash or itching. MUSCULOSKELETAL: Denies back pain, joint pain, or myalgia. NEUROLOGIC: Denies headache, numbness, dizziness, or weakness. PSYCHIATRIC: Denies anxiety or depression. [facility] Past Medical History Medical History Prediabetes Allergic rhinitis Chronic sinusitis Chronic post-traumatic stress disorder (PTSD) Anxiety Depression GERD (gastroesophageal reflux disease) Sleep apnea Asthma HTN (hypertension) CAD (coronary artery disease) history IN Concussion Surgical History Surgical History H/O gastric bypass Hx of cholecystectomy History of cardiac cath History of colonoscopy Family History Family History Grandparent Family history of obesity Hypertension Diabetes mellitus Mother Depression Patient's mother is in good health Family history of mental disorder Father Hypertension Patient's father is in good health Family history of alcoholism Cerebrovascular accident Sibling Patient's sister is in good health Patient's brother is in good health Father Cerebrovascular accident Alcoholism Hypertension Heart disease Mother Family history of malignant neoplasm Depression Hypertension Other Family history of cardiovascular disease Social History Social History Smoking status: Former smoker Smoking end date: 09/13/95 Alcohol intake: former Substance use: never Substance use type: opiates Lack of Transportation: No Lack of Food: Never True Current Housing: I Have Housing Concerned About Future Housing: No Difficulty Paying Gas/Electric Bills: No Difficulty Paying for Meds: No Currently Unemployed: No Education: Master's Degree or Higher Difficulty w/ Childcare or Family Care: No Living arrangements: alone Occupation/Education: occupation Gender identity (if verbalized by the patient): Male Sexual Orientation (if Verbalized by the Patient): Straight or Heterosexual Spiritual care concerns: No Exam Narrative: GENERAL: Well-appearing, well-nourished, and in no acute distress. HEAD: Normocephalic, atraumatic. EYES: PERRLA and EOMI. ENT: Nares clear, no rhinorrhea or epistaxis. Mucous membranes moist. Oropharynx without tonsillar hypertrophy exudate or other lesions. Bilateral TMs pearly valdez nonbulging NECK: Supple. No adenopathy or masses. No carotid bruits or JVD CHEST: Clear to auscultation. No respiratory distress. No wheezes rales or rhonchi HEART: Regular rate and rhythm. No murmur heard. Normal peripheral pulses. ABDOMEN: Soft, nontender, nondistended, normal active bowel sounds. EXTREMITIES: Normal range of motion. No edema. SKIN: Warm, dry, no rash. NEURO: No focal deficits. Alert and oriented x3. PSYCH: Normal mood and affect. Course Course Emergency Course: This is a 55-year-old male who presented for evaluation of sinus symptoms and sore throat. Rapid strep negative. Will send throat culture. Urine today without evidence of infection. He indicates that his sinusitis has historically responded well to Cipro despite fluoroquinolone listed allergy in his chart. He meets criteria based upon fever mucopurulent nature of the discharge. Also discharge with omeprazole per his request. He states he can tolerate this despite pantoprazole allergy. Follow-up with primary provider. Go to the ER for worsening symptoms. Patient in agreement with plan of care. Level of Care: Express Care Visit Vital Signs Vital signs: Vital Signs Temperature 37.0 C 04/17/25 17:53 Pulse Rate 64 04/17/25 17:53 Respiratory Rate 14 04/17/25 17:53 Blood Pressure 145/88 H 04/17/25 17:53 Pulse Oximetry 100 04/17/25 17:53 Oxygen Delivery Room Air 04/17/25 17:53 Temperature 37.0 C 04/17/25 17:53 Pulse Rate 64 04/17/25 17:53 Respiratory Rate 14 04/17/25 17:53 Blood Pressure 145/88 H 04/17/25 17:53 Pulse Oximetry 100 04/17/25 17:53 Oxygen Delivery Room Air 04/17/25 17:53 Medical Decision Making Vital Signs Vital Signs: Vital Signs Temperature 37.0 C 04/17/25 17:53 Pulse Rate 64 04/17/25 17:53 Respiratory Rate 14 04/17/25 17:53 Blood Pressure 145/88 H 04/17/25 17:53 Pulse Oximetry 100 04/17/25 17:53 Oxygen Delivery Room Air 04/17/25 17:53 Temperature 37.0 C 04/17/25 17:53 Pulse Rate 64 04/17/25 17:53 Respiratory Rate 14 04/17/25 17:53 Blood Pressure 145/88 H 04/17/25 17:53 Pulse Oximetry 100 04/17/25 17:53 Oxygen Delivery Room Air 04/17/25 17:53 Lab Data Labs: Lab Results 04/17/25 Range/Units 18:32 POC Urine Color Tracie POC Urine Clarity Clear POC Urine pH 6.0 POC Ur Specif [place] 1.020 POC Urine Protein 2+ (Negative) POC Ur Glucose (UA) Negative (Negative) POC Urine Ketones 1+ (Negative) POC Urine Blood Negative (Negative) POC Urine Nitrite Negative (Negative) POC Urine Bilirubin 2+ (Negative) POC Urine Urobilinogen 2.0 POC U Leukocyte Esteras Negative (Negative) POC Grp A Strep Screen Negative (Negative) Discharge Plan Discharge Clinical Impression: Sinusitis, Gastroesophageal reflux disease Patient Disposition: Home Condition: Stable Instructions: Antibiotic Form, Sinusitis (ED), GERD (Gastroesophageal Reflux Disease) (DC) Patient Language: Nauruan Prescriptions: New ciprofloxacin HCl [Cipro] 500 mg tablet 500 mg PO Q12H Qty: 14 0RF omeprazole 40 mg capsule,delayed release(DR/EC) 40 mg PO DAILY Qty: 30 0RF No Action potassium chloride 10 mEq tablet extended release 10 meq PO DAILY omeprazole 40 mg capsule,delayed release(DR/EC) 40 mg PO DAILY cyclobenzaprine 10 mg tablet 10 mg PO TID PRN (Reason: muscle spasm) Qty: 10 0RF alprazolam 2 mg tablet albuterol sulfate 90 mcg/actuation HFA aerosol inhaler 2 puff inhalation Q4-6H PRN (Reason: shortness of breath or wheezing) 30 Days Qty: 8.5 0RF fluticasone propionate [Flonase Allergy Relief] 50 mcg/actuation spray,suspension 1 spray intranasal BID Qty: 16 0RF Rx Instructions: administer into each nostril (DME) Aerochamber Plus Z Stat Spacer See Rx Instructions .Route Qty: 1 0RF Rx Instructions: As directed atenolol 100 mg tablet 100 mg PO DAILY Qty: 30 0RF cyclobenzaprine 10 mg tablet 10 mg PO BID PRN (Reason: muscle spasm) Qty: 14 0RF ferrous sulfate 325 mg (65 mg iron) tablet 325 mg PO DAILY Qty: 90 1RF escitalopram oxalate [Lexapro] 20 mg tablet 20 mg PO DAILY Qty: 30 5RF Follow-up/Referrals: Reji Mota MD [Primary Care Provider] - Time of Disposition: 18:38
== END 2025-04-17 18:42 | disposition home or self-care (01) ==
PROVIDERS: Emergency Provider Nurse Practitioner; PCP Family Medicine
DX: J32.9 Chronic sinusitis, unspecified (principal); K21.9 Gastro-esophageal reflux disease without esophagitis; I10 Essential (primary) hypertension; I25.10 Atherosclerotic heart disease of native coronary artery without angina pectoris; I25.2 Old myocardial infarction; J45.909 Unspecified asthma, uncomplicated; R73.03 Prediabetes; F41.9 Anxiety disorder, unspecified; F32.A Depression, unspecified; Z98.84 Bariatric surgery status; Z87.891 Personal history of nicotine dependence
CPT/HCPCS: 81003; 87081; 87880; 99213; G0463

== ENCOUNTER 2025-04-21 20:46 | Emergency (ER) | payer OTHER, SELFPAY ==
--- NOTE | ~2025-04-21 | XR_ITS ---
EXAMINATION: XR chest 1V portable Exam Date/Time: 04/21/2025 21:32 CDT HISTORY: weakness Comparison: 12/24/2024. RESULT: Lines, tubes, and devices: None. Lungs and pleura: Clear. Cardiomediastinal silhouette: Stable. Other: No acute osseous or upper abdominal finding. IMPRESSION: No acute cardiopulmonary process. Reviewed, dictated and finalized at location K.
--- NOTE | ~2025-04-21 | CT_ITS ---
EXAMINATION: CT brain wo con DATE: 04/21/2025 22:36 INDICATION: Headache TECHNIQUE: Computed tomography (CT) of the head was performed without intravenous contrast. Sagittal and coronal reconstructions were performed. The mA was adjusted according to patient size. Iterative reconstruction technique was employed. The dose-length product was 681.00 mGy-cm. COMPARISON: head CT dated 11/27/2024 FINDINGS: No acute intracranial hemorrhage, acute infarction or abnormal extra axial fluid collection. Symmetri c prominence of the sulci and subarachnoid spaces overlying the convexities consistent with mild age -appropriate diffuse cerebral volume loss. Ventricles are normal and symmetric. No mass/mass effect. Mild mucosal thickening the left ethmoid sinus. The orbits and mastoid air cells are normal. Chronic scarring in the scalp posterior to the vertex. IMPRESSION: 1. No acute intracranial process. Reviewed, dictated and finalized at location A.
--- OUTSIDE RECORDS SUMMARY | 2025-04-21 20:48 | XMS_ITS | Patient Health Record ---
Author Organization [employer] Address [address] [place] [address] [place] [address] Reason For Referral No Information Plan Of Treatment No Information
--- OUTSIDE RECORDS SUMMARY | 2025-04-21 20:49 | XMS_ITS | Encounter Summary ---
Author Organization [employer] Address 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 He indicated he had called PCP office [...] on filedocumented in this encounter Care Teams Social Services Coordinator Relationship Specialty Start Date End Date Howard Trinidad MD PCP - General Family Practice 01/25/16 01/26/16 documented as of this encounter
--- OUTSIDE RECORDS SUMMARY | 2025-04-21 20:49 | XMS_ITS | Encounter Summary ---
Author Organization [employer] Address 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
--- OUTSIDE RECORDS SUMMARY | 2025-04-21 20:49 | XMS_ITS | Encounter Summary ---
Author Organization [employer] Address 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 Medications: [facility] review Medication reactions: epic review <<<<<<<< TRIAGE NOTE >>>>>>>> Triage Note: Urology Nurse Seema Cueva added this note on Dec [...] they will have to speak with his database manager because he is upset with the lies [...] on filedocumented in this encounter Care Teams Dental Insurance Coordinator Relationship Specialty Start Date End Date Howard Trinidad MD PCP - General Family Practice 01/25/16 01/26/16 documented as of this encounter
--- OUTSIDE RECORDS SUMMARY | 2025-04-21 20:49 | XMS_ITS | Encounter Summary ---
Author Organization [employer] Address 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
--- OUTSIDE RECORDS SUMMARY | 2025-04-21 20:49 | XMS_ITS | Encounter Summary ---
Author Organization [employer] Address [address] [place] [address] Care Team Providers Care Brand Ambassador Promotional Model Name Role Phone Howard Trinidad MD Primary Care Provider Un available Encounter Details Date Type Department Care Team (Late st Contact Info) Description 04/27/2009 Emergency [facility] [place], Authorized P NO ADDRESS ON FILE Balta Sahu MD [address] [place] [address] [place] [address] Edin Marcum [place] [facility] [place] [address] Social History Tobacco Use Types Packs/Day Years Used Date Smoking Tobacco: Never Assessed Sex and Gender Information Value Date Recorded Sex Assigned at Not on file 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 FINDINGS: The heart and mediastinum are normal. There is no infiltrate, contusion, pneumothorax or pleural fluid. The visualized bony thorax is normal. IMPRESSION: Normal AP chest. . Dictated by: LEANDER GORDON 04/27/2009 07:51 Electronically signed by: LEANDER GORDON 04/27/2009 08:07 Transcribed: 04/27/2009 07:56 SMM Procedure Note Leander Gordon - 04/27/2009 [place] [address] [place], [place] [address] Admit Date: 04/27/2009 CARLOS KELLY Sex: M Admit Prov: BALTA SAHU Date: 1970 Primary Care Prov: CMRN: [id number] [facility] [address] [place] [address] IMAGING SERVICES Ordering Prov: N/A Interpretation PORTABLE [...] MCH 27.8 27.2 - 32.6 pg [facility] MPV 9.7 9.3 - 12.4 fL [facility] HEMATOCRIT 42.4 40.0 - 48.0 % [facility] RDW-STDEV 41.9 37.1 - 48.7 fL [facility] RBC 5.29 4.50 - 5.40 M/uL [facility] MCHC 34.7 31.5 - 35.5 % [facility] MCV 80.2(L) 82.0 - 99.0 fL [facility] PLATELETS 187 140 - 350 K/uL [facility] HEMOGLOBIN 14.7 13.6 - 16.5 g/dL [facility] RDW 14.7(H) 11.5 - 14.5 % [facility] WBC 7.2 4.0 - 9.8 K/uL [facility] BASOPHILS 0 0 - 2 % [facility] BASOPHILS ABSOLUTE 0.02 0.00 - 0.20 K/uL [facility] MONOCYTES 8 3 - 13 % [facility] MONOCYTE ABSOLUTE 0.56 0.10 - 1.30 K/uL [facility] NEUTROPHILS 56 45 - 70 % [facility] NEUTROPHIL ABSOLUTE 4.00 1.90 - 7.00 K/uL [facility] EOSINOPHILS 2 0 - 7 % [facility] EOSINOPHIL ABSOLUTE 0.16 0.00 - 0.70 K/uL [facility] LYMPHOCYTES 34 16 - 45 % [facility] LYMPHOCYTE ABSOLUTE 2.43 0.70 - 4.50 K/uL [facility] Blood specimen (specimen) 04/27/2009 12:08 AM CDT 04/27/2009 12:13 AM CDT Edin Marcum MD HEMATOLOGY ORDERABLES Edited Performing Organization Address [facility] Co de Phone Number [facility] CLIA# [id number] [address] [place] [address] * CARDIAC ENZYMES (04/27/2009 12:08 AM CDT) Pathologist [facility] TROPONIN T <0.01 <=0.03 ng/mL [facility] TROPONIN T INTERP Negative [facility] Blood specimen (specimen) 04/27/2009 12:08 AM CDT 04/27/2009 12:13 AM CDT Edin Marcum MD CHEMISTRY ORDERABLES Edited Performing Organization Address [facility] de Phone Number [facility] CLIA# [id number] [address] [place] [address] * (ABNORMAL) COMPREHENSIVE METABOLIC PANEL (04/27/2009 12:08 AM CDT) CREATININE 0.92 0.67 - 1.17 mg/dL [facility] ALT 130(H) 0 - 41 U/L [facility] SODIUM 141 135 - 145 mmol/L [facility] ALKALINE PHOSPHATASE 71 40 - 129 U/L [facility] CO2 32(H) 22 - 30 mmol/L [facility] BILIRUBIN TOTAL 1.2(H) 0.2 - 1.0 mg/dL [facility] POTASSIUM 3.7 3.5 - 4.9 mmol/L [facility] TOTAL PROTEIN 8.3 6.3 - 8.6 g/dL [facility] GLUCOSE 81 65 - 99 mg/dL [facility] AST 118(H) 12 - 38 U/L [facility] BUN 10 6 - 20 mg/dL [facility] CALCIUM 9.7 8.6 - 10.2 mg/dL [facility] ALBUMIN 4.6 3.4 - 4.8 g/dL [facility] CHLORIDE 101 96 - 108 mmol/L [facility] GFR, >60 >=60 mL/min/1. 7 sq meter [facility] GFR >60 >=60 mL/min/1. 7 sq meter [facility] Comment: Modification of Diet in Renal Disease (MDRD) study formula. Estimated GFR rate interpretative information for both Americans and non- Americans is available on the [facility] [place] Intranet at: [email or web address] Select: Lab Policies and Procedures Select: Reference Ranges - GFR Blood specimen (specimen) 04/27/2009 12:08 AM CDT 04/27/2009 12:13 AM CDT us Edin Marcum MD CHEMISTRY ORDERABLES Edited [facility] CLIA# [id number] [address] [place] [address] documented in this encounter Visit Diagnoses Not on filedocumented in this encounter Care Teams Brand Ambassador Promotional Model Relationship Specialty Start Date End Date Howard Trinidad MD PCP - General Family Practice 01/25/16 01/26/16 documented as of this encounter
--- OUTSIDE RECORDS SUMMARY | 2025-04-21 20:49 | XMS_ITS | Patient Health Record ---
Author Organization [facility] Address [address] [address] Care Team Providers Care Broadcast Transmitter Operator Name Role Phone Charanjit Sheffield Primary [...] 20 MG 1 tablet Orally Once a day; Duration: 30 days 01/09/2020 Active Trandolapril 2 MG 1 tablet Orally Once a day Not-Taking ALPRAZolam 2 MG 1 tablet Orally BID as needed; Duration: 30 days Active Promethazine HCl 25 MG 1 tablet as neede d Orally every 6 hrs; Duration: 5 days 01/23/2020 Not-Taking Flagyl 500 MG 1 tablet Orally Three times a day; Duration: 3 days 02/21/2020 Active hydroCHLOROthiazide 12.5 MG 1 tablet in the morning Orally Once a day Not-Taking Ciprofloxacin HCl 500 MG 1 tablet Orally every 12 hrs; Duration: 3 days 02/21/2020 Active hydrALAZINE HCl 25 MG 1 tablet Orally Three times a day Not-Taking Omeprazole 40 MG 1 tablet 30 minutes before morning meal Orally Once a day; Duration: 30 days Active Abezotbq-Vnbeypaiq-Fchouowt 0.1 % 1 application into the lower eyelid of affected eye Ophthalmic Three times a day; Duration: 7 days 02/06/2020 Not-Taking Promethazine HCl 25 MG 1 tablet as neede d Orally every 6 hrs as needed Active Fluticasone Propionate 50 MCG/ACT 2 spray in each nostril Nasally Once a day; Duration: 30 days Active Atenolol 100 MG 1 tablet Orally Once a day; Duration: 15 Active Meclizine HCl 25 MG 1 [...] Problem Status W/U Status Risk Notes Problem Type 2 diabetes mellitus with other specified complication (E11.69) Active confirmed Problem Mixed hyperlipidemia (015652615) Mixed hyperlipidemia (E78.2) Active confirmed Problem Nausea (720196994) Nausea (R11.0) Active confir med Problem Anxiety (00376224) Anxiety (F41.9) Active confi rmed Problem Gastroesophageal reflux disease without esophagitis (893443688) Gastroesophageal reflux disease without esophagitis (K21.9) Active confirmed Problem Mild intermittent asthma (655606481) Mild intermittent asthma without complication (J45.20) Active confirmed Problem Essential hypertension (94520911) Essential hypertension (I10) Active confirmed Problem Vertigo (371948150) Vertigo (R42) Active confir med Problem Neck pain (15296738) Neck pain (M54.2) Active confirmed Problem Abdominal pain (62598825) Abdominal pain (R10.9) Active confirmed Problem Depression (853854835) Depression (F32.9) Active confirmed Problem Cervical spondylosis (847683334) Cervical spondylosis (M47.812) Active confirmed Problem Pain in right arm (852487316) Right arm pain (M79.601) Active confirmed Problem Type II diabetes mellitus without complication (179021127) Type 2 diabetes mellitus without complication, without long-term current use of insulin (E11.9) Active confirmed Problem History of gastrointestinal disease (363763103) History of diverticulosis (Z87.19) Active confirmed Problem Allergic rhinitis (83377290) Allergic rhinitis due to other allergic trigger, unspecified seasonality (J30.89) Active confirmed Problem History of excision of intestinal structure (967985310) S/P cholecystectomy (Z90.49) Active confirmed Problem Recurrent major depression in remission (36806219) Recurrent major depressive disorder, in partial remission (F33.41) Active confirmed Problem Allergic rhinitis (94447219) Non-seasonal allergic rhinitis, unspecified trigger (J30.89) Active confirmed Problem Elevated liver enzymes level (356138887) Elevated LFTs (R79.89) Active confirmed Problem Pain in eye (03936376) Discomfort of left eye (H57.12) Active confirmed Plan Of Treatment No Information Insurance Providers Payer Name Payer Address Payer Phone Subscriber Number Group Number Insured Name Patient Relationship to Insured Coverage Start Date Coverage End Date [employer] [address] [id number] WADE KELLY Self - patient is the insured 9 Medical (General) History Medical History History ICD Code sinusitis Vertigo Asthma Sleep Apnea diverticulitis fatty liver 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
--- OUTSIDE RECORDS SUMMARY | 2025-04-21 20:49 | XMS_ITS | Encounter Summary ---
Author Organization [employer] Address 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
--- OUTSIDE RECORDS SUMMARY | 2025-04-21 20:49 | XMS_ITS | Encounter Summary ---
Author Organization [employer] Address 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
--- OUTSIDE RECORDS SUMMARY | 2025-04-21 20:49 | XMS_ITS | Encounter Summary ---
Author Organization [facility] Address [address] [place] [address] Care Team Providers Care Transistor Tester Name Role Phone None, Provider Primary Care Provider Alisson oliva Encounter Details Date Type Department Care Team (Late st Contact Info) Description 01/04/2020 Telephone [facility] [place] [address] Lee Ann Aguilar LCSW Social [...] documented as of this encounter Care Teams Transistor Tester Relationship Specialty Start Date End Date None, Provider, PCP - General 12/31/19 documented as of this encounter
--- OUTSIDE RECORDS SUMMARY | 2025-04-21 20:49 | XMS_ITS | Encounter Summary ---
Author Organization [employer] Address [address] [place] [address] Care Team Providers Care Director Meetings Name Role Phone Howard Trinidad MD Primary Care Provider Un available Encounter Details Date Type Department Care Team (Late st Contact Info) Description 07/01/2006 Outpatient Historical [facility] [place] Support [facility] ([facility]) [address] [place] [address] Yash Bella MD Social History Tobacco Use Types Packs/Day Years Used Date Smoking Tobacco: Never Assessed Sex and Gender Information Value Date Recorded Sex Assigned at Not on file Legal Sex Male 4:57 AM REMOVABLE PROSTHODONTIST Gender Identity Not on file Sexual Orientation Not on file documented as of this encounter Plan of Treatment Not on file documented as of this encounter Visit Diagnoses Not on filedocumented in this encounter Care Teams Director Meetings Relationship Specialty Start Date End Date Howard Trinidad MD PCP - General Family Practice 01/25/16 01/26/16 documented as of this encounter
--- OUTSIDE RECORDS SUMMARY | 2025-04-21 20:49 | XMS_ITS | Encounter Summary ---
Author Organization [employer] Address [address] [place] [address] Care Team Providers Care Associate Store Leader Name Role Phone Howard Trinidad MD Primary [...] on file Legal Sex Male 4:57 AM SENSITIZED PAPER TESTER Gender Identity Not on file Sexual Orientation Not on file documented as of this encounter Plan of Treatment Not on file documented as of this encounter Visit Diagnoses Diagnosis Other and unspecified special symptom or syndrome, not elsewhere classified- Primary documented in this encounter Care Teams Associate Store Leader Relationship Specialty Start Date End Date Howard Trinidad MD PCP - General Family Practice 01/25/16 01/26/16 documented as of this encounter
--- OUTSIDE RECORDS SUMMARY | 2025-04-21 20:49 | XMS_ITS | Encounter Summary ---
Author Organization [employer] Address [address] [place] [address] Care Team Providers Care Roof Painter Name Role Phone Howard Trinidad MD Primary Care Provider Un available Encounter Details Date Type Department Care Team (Late st Contact Info) Description 03/02/2005 Outpatient Historical [facility] Support Serv. ([facility]) [address] [place] [address] Vignesh Gurrola MD NO ADDRESS ON FILE Social History Tobacco Use Types Packs/Day Years Used Date Smoking Tobacco: Never Assessed Sex and Gender Information Value Date Recorded Sex Assigned at Not on file Legal Sex Male 4:57 AM SWEAT BAND SEWER Gender Identity Not on file Sexual Orientation Not on file documented as of this encounter Plan of Treatment Not on file documented as of this encounter Visit Diagnoses Not on filedocumented in this encounter Care Teams Roof Painter Relationship Specialty Start Date End Date Hoawrd Trinidad MD PCP - General Family Practice 01/25/16 01/26/16 documented as of this encounter
--- OUTSIDE RECORDS SUMMARY | 2025-04-21 20:49 | XMS_ITS | Clinical Summary ---
Author Organization [facility] Address [facility] [place] [address] Care Team Providers Care Faculty Support Coordinator Name Role Phone None, Provider MD Primary [...] CDT - 02/06/2025 4:50 PM CDT Emergency [facility] [place] [address] Luna Zbaala Dg, WIND FARM ENGINEER Abdominal Pain Discharge Disposition: Home or Self [...] 4:01 PM Narrative 02/06/2025 4:15 PM CDT [address] [address] EXAM: CT ABDOMEN - PELVIS WITHOUT CONTRAST [...] mildly enlarged prostate gland. SOFT TISSUES-OSSEOUS: Bilateral lmthm-[id number] fat-containing inguinal hernias. Tiny fat-containing umbilical hernia. Osseous degenerative changes redemonstrated. Stable straightening of the visualized spine. Stable subcentimeter osseous sclerotic lesions that are too small to characterize but statistically likely probably benign entities such as bone islands. Procedure Note Lizzie Le MD - 02/06/[address] [address] EXAM: CT ABDOMEN - PELVIS WITHOUT CONTRAST [...] mildly enlarged prostate gland. SOFT TISSUES-OSSEOUS: Bilateral mtybg-yx-[id number] fat-containing inguinalhernias. Tiny fat-containing umbilical hernia. Osseous [...] MD, 02/06/2025 4:01 PM us Luna Zabala WIND FARM ENGINEER CT Final Resul t * (ABNORMAL) COMPREHENSIVE METABOLIC PANEL (02/06/2025 2:05 PM CDT) GLUCOSE 87 70 - 99 MG/DL 02/06/2025 3:00 PM CDT [facility] BUN 7 7 - 18 MG/DL 02/06/2025 3:00 PM CDT [facility] CREATININE S/P/B 1.17 0.7 - 1.3 MG/DL 02/06/2025 3:00 PM CDT [facility] SODIUM S/P/B 139 136 - 145 MMOL/L 02/06/2025 3:00 PM CDT [facility] POTASSIUM S/P/B 3.2(L) 3.5 - 5.1 MMOL/L 02/06/2025 3:00 PM CDT [facility] CHLORIDE S/P/B 103 97 - 115 MMOL/L 02/06/2025 3:00 PM T [facility] CO2 27.8 21 - 32 MMOL/L 02/06/2025 3:00 PM T [facility] CALCIUM S/P/B 9.3 8.5 - 10.1 MG/DL 02/06/2025 3:00 PM T [facility] BILIRUBIN TOTAL S/P/B 2.4(H) 0.2 - 1.2 MG/DL 02/06/2025 3:00 PM T [facility] Comment: THIS ASSAY IS NOT RECOMMENDED FOR PATIENTS UNDERGOING TREATMENT WITH ELTROMBOPAG DUE TO THE POTENTIAL FOR FALSELY ELEVATED RESULTS. TOTAL PROTEIN S/P/B 8.6(H) 6.4 - 8.2 G/DL 02/06/2025 3:00 PM T [facility] ALBUMIN S/P/B 4.4 3.4 - 5.0 G/DL 02/06/2025 3:00 PM T [facility] AST 29 15 - 37 U/L 02/06/2025 3:00 PM T [facility] ALT 33 16 - 60 U/L 02/06/2025 3:00 PM T [facility] ALKALINE PHOSPHATASE S/P/B 75 50 - 136 U/L 02/06/2025 3:00 PM T [facility] ANION GAP 8.2 2 - 10 MMOL/L 02/06/2025 3:00 PM T [facility] BUN CREATININE RATIO 6.0 6 - 02/06/2025 3:00 PM T [facility] A/G RATIO 1.0 1.0 - 2.0 RATIO 02/06/2025 3:00 PM T [facility] GFR ESTIMATE 75(L) >90 ML/MIN/1.7 3 M2 02/06/2025 3:00 PM CDT [facility] Comment: NOTE: eGFR is not calculated for patients <18 years of age or gender unknown. This is an estimated GFR calculation using the new CKD EPI creatinine equation without race and so does not require a correction factor for race. This estimated GFR should not be used for calculating drug doses. 02/06/2025 2:05 PM CDT Ramila Phillips PA-C LABORATORY Final Resul t [facility] [address] [place] [address], * (ABNORMAL) CBC W/DIFF AUTOMATED (02/06/2025 2:05 PM CDT) WBC 5.86 4.5 - 11.0 x10'3/uL 02/06/2025 3:04 PM CDT [facility] RBC 5.90 4.70 - 6.10 x10'6/uL 02/06/2025 3:04 PM CDT [facility] HGB 12.1(L) 14.0 - 18.0 G/DL 02/06/2025 3:04 PM CDT [facility] HCT 40.5(L) 43.0 - 54.0 % 02/06/2025 3:04 PM CDT [facility] MCV 68.6(L) 80.0 - 94.0 FL 02/06/2025 3:04 PM CDT [facility] MCH 20.5(L) 27.0 - 31.0 PG 02/06/2025 3:04 PM CDT [facility] MCHC 29.9(L) 32.0 - 36.0 G/DL 02/06/2025 3:04 PM CDT [facility] RDW 18.7(H) 11.5 - 14.5 % 02/06/2025 3:04 PM CDT [facility] PLT 208 130 - 400 x10'3/uL 02/06/2025 3:04 PM CDT [facility] MPV 9.7 9.3 - 12.2 FL 02/06/2025 3:04 PM CDT [facility] DIFFERENTIAL TYPE AUTOMATED DIFFERENTIAL 02/06/2025 3:05 PM CDT [facility] NEUTROPHILS % 66.0 % 02/06/2025 3:05 PM CDT [facility] LYMPHOCYTES % 25.3 % 02/06/2025 3:05 PM CDT [facility] MONOCYTES % 5.8 % 02/06/2025 3:05 PM CDT [facility] EOSINOPHILS 2.2 % 02/06/2025 3:05 PM CDT [facility] BASOPHILS 0.7 % 02/06/2025 3:05 PM CDT [facility] IMMATURE GRANS % 0.0 % 02/07/20 3:05 PM CDT [facility] ABS. NEUTROPHILS 3.87 1.80 - 7.70 x10'3/uL 02/06/2025 3:05 PM CDT [facility] ABS. LYMPHOCYTES 1.48 1.00 - 4.80 x10'3/uL 02/06/2025 3:05 PM CDT [facility] ABS. MONOCYTES 0.34 0.30 - 0.82 x10'3/uL 02/06/2025 3:05 PM CDT [facility] ABS. EOSINOPHILS 0.13 0.04 - 0.54 x10'3/uL 02/06/2025 3:05 PM CDT [facility] ABS. BASOPHILS 0.04 0.01 - 0.08 x10'3/uL 02/06/2025 3:05 PM CDT [facility] ABS. IMMATURE GRANULOCYTES 0.00 0.00 - 0.49 x10'3/uL 02/06/2025 3:05 PM CDT [facility] RBC MORPHOLOGY SLIDE REVIEWED 2024 3:05 PM CDT [facility] POIKLO 1+ 02/06/2025 3:05 PM CDT [facility] MICRO 2+ 02/06/2025 3:05 PM CDT [facility] POLY 1+ 02/06/2025 3:05 PM CDT [facility] PLT EST. ADEQUATE 02/06/2025 3:05 PM CDT [facility] 02/06/2025 2:05 PM CDT Ramila Phillips PA-C LABORATORY Final Resul t [facility] [address] [id number], [place] [phone] * TROPONIN, QUANT (02/06/2025 2:05 PM CDT) TROPONIN I HIGH SENSITIVITY 25 <79 ng/L 02/06/2025 3:00 PM CDT [facility] Comment: HIGH DOSES OF BIOTIN, TROPONIN-SPECIFIC AUTOANTIBODIES, AND ANTIBODY THERAPY CONTAINING HAMA MAY INTERFERE WITH THIS TEST RESULT. CORRELATION TO CLINICAL HISTORY AND PRESENTATION RECOMMENDED. 02/06/2025 2:05 PM CDT us Ramila Phillips PA-C LABORATORY Final Resul t [facility] [address] [place] [address], [place] [phone] * LIPASE (02/06/2025 2:05 PM CDT) LIPASE 32 13 - 75 UNITS/L 02/06/2025 3:00 PM CDT [facility] 02/06/2025 2:05 PM CDT Ramila Phillips PA-C LABORATORY Final Resul t [facility] [address] [place] [address], [place] [phone] * URINALYSIS (02/06/2025 2:03 PM CDT) Pathologist [facility] SPECIMEN TYPE URINE CLEAN CATCH 02/06/2025 2:04 PM CDT [facility] COLOR (U) COLORLESS 02/06/2025 2:41 PM CDT [facility] TRANSPARENCY CLEAR 02/06/2025 2:41 PM CDT [facility] SPECIFIC GRAVITY (U) 1.003 1.001 - 1.030 02/06/2025 2:41 PM CDT [facility] U PH 6.5 5.0 - 9.0 02/06/2025 2:41 PM CDT [facility] LEUKOCYTES (U) NEGATIVE NEGATIVE 02/06/2025 2:41 PM CDT [facility] NITRITES NEGATIVE NEGATIVE 02/06/2025 2:41 PM CDT [facility] PROTEIN RANDOM (U) NEGATIVE <30 MG/DL 02/06/2025 2:41 PM CDT [facility] GLUCOSE (U) NORMAL NORMAL MG/DL 02/06/2025 2:41 PM CDT [facility] KETONES MG/DL (U) NEGATIVE NEGATIVE MG/DL 02/06/2025 2:41 PM CDT [facility] UROBILINOGEN NORMAL NORMAL MG/DL 02/06/2025 2:41 PM CDT [facility] BILIRUBIN (U) NEGATIVE NEGATIVE MG/DL 02/06/2025 2:41 PM CDT [facility] BLOOD (U) NEGATIVE NEGATIVE 02/06/2025 2:41 PM CDT [facility] URINE SPECIMEN OBTAINED BY CLEAN CATCH PROCEDURE / Unknown 02/06/2025 2:03 PM CDT us Ramila Phillips PA-C URINE ORDERABLES Final Resu lt [facility] [address] [place] [address], * ECG 12 lead (02/06/2025 1:55 PM CDT) 02/06/2025 1:55 PM CDT Narrative [facility] ([facility] RAD - 02/06/2025 8:39 PM CDT [address] Test Date: 2025-02-06 Pat Name: CARLOS KELLY Department: 41 Room: [facility] Gender: Male Levelman: : 1970 Requested By: RAMILA PHILLIPS Order Number: [id number] Reading MD: North Marks Measurements Intervals Mcdougal Rate: 61 P: -1 CT: 154 QRS: 18 QRSD: 106 T: 2 QT: 414 QTc: 418 Interpretive Statements SINUS RHYTHM Compared to ECG 06/18/2018 19:37:45 No significant changes Procedure Note North Marks MD - 02/06/2025 [facility] [place] [address] [address] [place] Test Date: 2025-02-06 Pat Name: FRANCESCOTEETEE ROBIN Department: 41 Room: [facility] Gender: Male Levelman: : 1970 Requested By: RAMILA PHILLIPS Order Number: [id number] Reading MD: North Marks Measurements Intervals Mcdougal Rate: 61 P: -1 CT: 154 QRS: 18 QRSD: 106 T: 2 QT: 414 QTc: 418 Interpretive Statements SINUS RHYTHM Compared to ECG 06/18/2018 19:37:45 No significant changes us Ramila Phillips PA-C ECG ORDERABLES Final Resul t [facility] ([facility]) RAD from Last 3 Months Insurance [employer] Care Teams Faculty Support Coordinator Relationship Specialty Start Date End Date None, Provider, PCP - General 12/31/19
--- OUTSIDE RECORDS SUMMARY | 2025-04-21 20:49 | XMS_ITS | Encounter Summary ---
Author Organization [employer] Address [address] [place] [address] Care Team Providers Care Agribusiness Internship Name Role Phone Howard Trinidad MD Primary Care Provider Un available Encounter Details Date Type Department Care Team (Late st Contact Info) Description 02/23/2007 Emergency [facility] Ian Gauthier [address] [place] [address] Er, Authorized P NO ADDRESS ON FILE Anxiety State, Unspecified (Primary Dx) Social History Tobacco Use Types Packs/Day Years Used Date Smoking Tobacco: Never Assessed Sex and Gender Information Value Date Recorded Sex Assigned at Not on file Legal Sex Male 4:57 AM DIRECTOR OF SPEECH PATHOLOGY Gender Identity Not on file Sexual Orientation Not on file documented as of this encounter Plan of Treatment Not on file documented as of this encounter Visit Diagnoses Diagnosis Anxiety state, unspecified- Primary documented in this encounter Care Teams Agribusiness Internship Relationship Specialty Start Date End Date Howard Trinidad MD PCP - General Family Practice 01/25/16 01/26/16 documented as of this encounter
--- OUTSIDE RECORDS SUMMARY | 2025-04-21 20:49 | XMS_ITS | Patient Health Record ---
Author Organization [facility] [employer] Address [address] [facility] [address] [place] [address] Care Team Providers Care Community Administrator Name Role Phone John Mtz Unavailable [phone] Reason For Referral No Information Plan Of Treatment No Information
--- OUTSIDE RECORDS SUMMARY | 2025-04-21 20:49 | XMS_ITS | Encounter Summary ---
Author Organization [employer] Address [address] [place] [address] Care Team Providers Care Modular Set Crew Member Name Role Phone Howard Trinidad MD Primary Care Provider Un available Encounter Details Date Type Department Care Team (Late st Contact Info) Description 03/02/2004 Emergency [facility] Ian Gauthier [address] [place] [id number] Er, Authorized P NO ADDRESS ON FILE ANXIETY STATE NOS (Primary Dx) Social History Tobacco Use Types Packs/Day Years Used Date Smoking Tobacco: Never Assessed Sex and Gender Information Value Date Recorded Sex Assigned at Not on file Legal Sex Male 4:57 AM RESIDENT CARE COORDINATOR Gender Identity Not on file Sexual Orientation Not on file documented as of this encounter Plan of Treatment Not on file documented as of this encounter Visit Diagnoses Diagnosis Anxiety state, unspecified- Primary documented in this encounter Care Teams Modular Set Crew Member Relationship Specialty Start Date End Date Howard Trinidad MD PCP - General Family Practice 01/25/16 01/26/16 documented as of this encounter
--- OUTSIDE RECORDS SUMMARY | 2025-04-21 20:49 | XMS_ITS | Encounter Summary ---
Author Organization [email or web address] Address [address] [place] [address] Care Team Providers Care Hot Metal Crane Operator Name Role Phone Howard Trinidad MD [...] on file Legal Sex Male 4:57 AM DRUM SPRAYER Gender Identity Not on file Sexual Orientation Not on file documented as of this encounter Plan of Treatment Not on file documented as of this encounter Visit Diagnoses Diagnosis Unspecified sinusitis (chronic)- Primary documented in this encounter Care Teams Hot Metal Crane Operator Relationship Specialty Start Date End Date Howard Trinidad MD PCP - General Family Practice 01/25/16 01/26/16 documented as of this encounter
--- OUTSIDE RECORDS SUMMARY | 2025-04-21 20:49 | XMS_ITS | Encounter Summary ---
Author Organization [employer] Address 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
--- OUTSIDE RECORDS SUMMARY | 2025-04-21 20:49 | XMS_ITS | Encounter Summary ---
Author Organization [employer] Address [address] [place] [address] Care Team Providers Care Development Associate Name Role Phone Howard Trinidad MD Primary Care Provider Un available Encounter Details Date Type Department Care Team (Late st Contact Info) Description 04/03/2004 Emergency [facility] Leticia Cotton MD [facility] [place] [address] Er, Authorized P NO ADDRESS ON FILE PANIC DISORDER (Primary Dx) Social History Tobacco Use Types Packs/Day Years Used Date Smoking Tobacco: Never Assessed Sex and Gender Information Value Date Recorded Sex Assigned at Not on file Legal Sex Male 4:57 AM FUR GLAZER Gender Identity Not on file Sexual Orientation Not on file documented as of this encounter Plan of Treatment Not on file documented as of this encounter Visit Diagnoses Diagnosis Panic disorder without agoraphobia- Primary documented in this encounter Care Teams Development Associate Relationship Specialty Start Date End Date Howard Trinidad MD PCP - General Family Practice 01/25/16 01/26/16 documented as of this encounter
--- OUTSIDE RECORDS SUMMARY | 2025-04-21 20:49 | XMS_ITS | Encounter Summary ---
Author Organization [employer] Address [address] [place] [address] Care Team Providers Care Order Detailer Name Role Phone Howard Trinidad MD Primary [...] file Legal Sex Male 4:57 AM COMMUNITY HEALTH REPRESENTATIVE Gender Identity Not on file Sexual Orientation Not on file documented as of this encounter Plan of Treatment Not on file documented as of this encounter Visit Diagnoses Diagnosis Anxiety state, unspecified- Primary documented in this encounter Care Teams Order Detailer Relationship Specialty Start Date End Date Howard Trinidad MD PCP - General Family Practice 01/25/16 01/26/16 documented as of this encounter
--- OUTSIDE RECORDS SUMMARY | 2025-04-21 20:49 | XMS_ITS | Clinical Summary ---
Author Organization [facility] Address [address] [place] [address] Phone Care Team Providers Care Automobile Lights Assembler Name Role Phone Unavailable Primary Care [...]
--- OUTSIDE RECORDS SUMMARY | 2025-04-21 20:49 | XMS_ITS | Encounter Summary ---
Author Organization [employer] Address 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
--- OUTSIDE RECORDS SUMMARY | 2025-04-21 20:49 | XMS_ITS | Encounter Summary ---
Author Organization [employer] Address [address] [place] [address] Care Team Providers Care Interventional Radiology Rn Name Role Phone Howard Trinidad MD Primary Care Provider Un available Encounter Details Date Type Department Care Team (Late st Contact Info) Description 11/22/2007 Emergency [facility] Er, Authorized P NO ADDRESS ON FILE Arie Justice MD [address] [place] [address] [place] [address] Social History Tobacco Use Types Packs/Day Years Used Date Smoking Tobacco: Never Assessed Sex and Gender Information Value Date Recorded Sex Assigned at Not on file Legal Sex Male 4:57 AM ENGINE WIPER Gender Identity Not on file Sexual Orientation Not on file documented as of this encounter Plan of Treatment Not on file documented as of this encounter Visit Diagnoses Not on filedocumented in this encounter Care Teams Interventional Radiology Rn Relationship Specialty Start Date End Date Howard Trinidad MD PCP - General Family Practice 01/25/16 01/26/16 documented as of this encounter
--- OUTSIDE RECORDS SUMMARY | 2025-04-21 20:49 | XMS_ITS | Encounter Summary ---
Author Organization [employer] Address [address] [place] [address] Care Team Providers Care Telecommunications Professional Name Role Phone Howard Trinidad MD Primary Care Provider Un available Encounter Details Date Type Department Care Team (Late st Contact Info) Description 06/03/2008 Emergency [facility] Er, Authorized P NO ADDRESS ON FILE Jose Soto MD [facility] [place] [address] Social History Tobacco Use Types Packs/Day Years Used Date Smoking Tobacco: Never Assessed Sex and Gender Information Value Date Recorded Sex Assigned at Not on file Legal Sex Male 4:57 AM VEGETABLE SPECKER Gender Identity Not on file Sexual Orientation Not on file documented as of this encounter Plan of Treatment Not on file documented as of this encounter Visit Diagnoses Not on filedocumented in this encounter Care Teams Telecommunications Professional Relationship Specialty Start Date End Date Howard Trinidad MD PCP - General Family Practice 01/25/16 01/26/16 documented as of this encounter
--- OUTSIDE RECORDS SUMMARY | 2025-04-21 20:49 | XMS_ITS | Clinical Summary ---
Author Organization [facility] Administrative Offices Address [address] [place] [address] Care Team Providers Care White Shoe Ragger Name Role Phone Unavailable Primary Care Provider [...] None 6 Active fluticasone (FLONASE) 50 mcg/spray Manning, Suspension Administer 2 Sprays in each nostril [...] on file Legal Sex Male 4:57 AM SOFTWARE ANALYST Gender Identity Not on file Sexual Orientation Not on file Occupation Industry Job Start Date Job End Date Not on file Not on file Not on file Not on file Not on file Not on file Not on file Not on file Last Filed Vital Signs Vital Sign Reading Time Taken Comments Blood Pressure 152/94 11/18/2019 7:07 AM SOFTWARE ANALYST Pulse 66 11/18/2019 7:07 AM SOFTWARE ANALYST Temperature 36.7 C (98.1 F) 11/18/2019 5:34 AM SOFTWARE ANALYST Respiratory Rate 18 11/18/2019 7:07 AM SOFTWARE ANALYST Oxygen Saturation 98% 11/18/2019 7:07 AM SOFTWARE ANALYST Inhaled Oxygen Concentration - - Weight 120.2 kg (265 lb) 11/18/2019 5:34 AM SOFTWARE ANALYST Height 188 cm (6' 2) 11/18/2019 5:34 AM SOFTWARE ANALYST Body Mass Index 34.02 11/18/2019 5:34 AM SOFTWARE ANALYST Plan of Treatment Health Maintenance Due Date [...] - 6.1 % 07/02/2015 5:25 PM CDT [facility] [employer] [facility] EST. AVG GLUCOSE, A1C 140 mg/dL 07/02/2015 5:25 PM CDT [facility] Blood Venipuncture - Floor Collect / Unknown 07/02/2015 2:10 AM CDT 07/02/2015 2:11 AM CDT Narrative [facility] - 07/02/2015 5:25 PM CDT Based on the ADAG study equation. us Iwona Arteaga APN CHEMISTRY ORDERABLES Final R esult [facility] CLIA# [id number] [address] [place] [id number] from Last 3 Months or Most Recently Relevant to Health Maintenance Insurance MEDICAID Advance Directives For more information, please contact: [phone] * Full Code (Latest Code Status on File) Date Activated Date Inactivated Comments 07/02/2015 8:36 AM 07/02/2015 8:02 PM * Full Code Date Activated Date Inactivated Comments 08/28/2014 2:37 PM 08/28/2014 5:13 PM
--- OUTSIDE RECORDS SUMMARY | 2025-04-21 20:49 | XMS_ITS | Encounter Summary ---
Author Organization [employer] Address [address] [place] [address] Care Team Providers Care Agriculture Extension Specialist Name Role Phone Howard Trinidad MD [...] on file Legal Sex Male 4:57 AM WIRE STRETCHER Gender Identity Not on file Sexual Orientation Not on file documented as of this encounter Plan of Treatment Not on file documented as of this encounter Visit Diagnoses Diagnosis Abdominal pain, left lower quadrant- Primary documented in this encounter Care Teams Agriculture Extension Specialist Relationship Specialty Start Date End Date Howard Trinidad MD PCP - General Family Practice 01/25/16 01/26/16 documented as of this encounter
[2025-04-21 20:51] VITALS: PULSE 60; RESP 18; TEMP 36.9; O2SAT 98
--- NOTE | 2025-04-21 21:05 | ECG_ITS ---
Test Date: 2025-04-21 21:25:11 Measurements Intervals [place] Rate: 57 P: 3 MA: 164 QRS: 27 QRSD: 105 T: 3 QT: 404 QTc: 396 Interpretive Statements SINUS BRADYCARDIA' INCOMPLETE RIGHT BUNDLE BRANCH BLOCK NONSPECIFIC T-WAVE ABNORMALITY- INFERIOR LEADS BASELINE ARTIFACT- I, II, AVR, AVL BORDERLINE ECG Compared to ECG 03/29/2025 09:26:56 No significant changes Electronically Signed On 04-22-2025 07:46:56 CDT by Yonathan Ross D.O.
[2025-04-21 21:20] LABS: Hematocrit 38.2 % (42.0-52.0); Hemoglobin 11.2 g/dL (14.0-18.0); Immature Granulocyte Percent A 0.4 % (0-0.5); Lymphocytes Absolute Auto 1.12 K/mm3 (0.9-3.2); Mean Corpuscular HGB Conc 29.3 g/dl (32-36); Mean Corpuscular Hemoglobin 20.2 pg (26-34); Mean Corpuscular Volume 69.0 fl (80-100); Nucleated Red Blood Cells Absolute Auto 0.000 K/mm3 (0.0-0.012); Nucleated Red Blood Cells Perc 0.0 % (0.0-0.2); Platelet Count Result 161 k/mm3 (150-375); Red Blood Count 5.54 M/mm3 (4.6-6.20); White Blood Count 5.1 K/mm3 (4.5-10.0)
[2025-04-21 21:30] LABS: Anisocytosis 1+; Hypochromasia 1+; Microcytosis 1+ (NORMAL); Ovalocytes 1+; Schistocytes None Seen
[2025-04-21 21:31] LABS: Alanine Aminotransferase 41 U/L (6-50); Albumin Level 4.3 g/dL (3.5-5.1); Alkaline Phosphatase 65 U/L (38-126); Anion Gap 7 mmol/L (4-12); Aspartate Amino Transferase 48 U/L (17-59); Bilirubin,Total 1.8 mg/dL (0.2-1.3); Blood Urea Nitrogen 10 mg/dL (9-20); Calcium 8.9 mg/dL (8.4-10.2); Carbon Dioxide 28 mmol/L (22-30); Chloride 100 mmol/L (98-107); Estimated CRCL calculation 115 ml/min; Estimated Glomerular Filt Rate > 60; Glucose 123 mg/dL (65-110); INR 1.1; Potassium 3.5 mmol/L (3.4-5.0); Prothrombin Time 14.5 Seconds (11.1-14.7); Sodium 135 mmol/L (137-145); Total Protein 7.8 g/dL (6.3-8.2)
--- OUTSIDE RECORDS SUMMARY | 2025-04-21 21:31 | XMS_ITS | Encounter Summary ---
Author Organization [employer] Address 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
--- OUTSIDE RECORDS SUMMARY | 2025-04-21 21:31 | XMS_ITS | Encounter Summary ---
Author Organization [employer] Address [address] [place] [address] Care Team Providers Care Mass Spec Name Role Phone Howard Trinidad MD Primary Care Provider Un available Encounter Details Date Type Department Care Team (Late st Contact Info) Description 07/01/2006 Outpatient Historical [facility] Support Serv. (Adt Cardiology[facility]) [address] 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
--- OUTSIDE RECORDS SUMMARY | 2025-04-21 21:31 | XMS_ITS | Encounter Summary ---
Author Organization [employer] Address [address] [place] [address] Care Team Providers Care Order Desk Clerk Name Role Phone Howard Trinidad MD [...] on file Legal Sex Male 4:57 AM PHARMACIST AIDE Gender Identity Not on file Sexual Orientation Not on file documented as of this encounter Plan of Treatment Not on file documented as of this encounter Visit Diagnoses Diagnosis Other and unspecified special symptom or syndrome, not elsewhere classified- Primary documented in this encounter Care Teams Order Desk Clerk Relationship Specialty Start Date End Date Howard Trinidad MD PCP - General Family Practice 01/25/16 01/26/16 documented as of this encounter
--- OUTSIDE RECORDS SUMMARY | 2025-04-21 21:31 | XMS_ITS | Encounter Summary ---
Author Organization [employer] Address [address] [place] [address] Care Team Providers Care Rn Concurrent Review Name Role Phone Howard Trinidad MD Primary [...] on file Legal Sex Male 4:57 AM HEAD BATCHER Gender Identity Not on file Sexual Orientation Not on file documented as of this encounter Plan of Treatment Not on file documented as of this encounter Visit Diagnoses Diagnosis Unspecified sinusitis (chronic)- Primary documented in this encounter Care Teams Rn Concurrent Review Relationship Specialty Start Date End Date Howard Trinidad MD PCP - General Family Practice 01/25/16 01/26/16 documented as of this encounter
--- OUTSIDE RECORDS SUMMARY | 2025-04-21 21:31 | XMS_ITS | Encounter Summary ---
Author Organization [employer] Address 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
--- OUTSIDE RECORDS SUMMARY | 2025-04-21 21:31 | XMS_ITS | Encounter Summary ---
Author Organization [employer] Address [address] [place] [address] Care Team Providers Care Breading Machine Tender Name Role Phone Howard Trinidad MD Primary Care Provider Un available Encounter Details Date Type Department Care Team (Late st Contact Info) Description 04/03/2004 Emergency [facility] Leticia Cotton MD [facility] [place] [address] Er, Authorized P NO ADDRESS ON FILE PANIC DISORDER (Primary Dx) Social History Tobacco Use Types Packs/Day Years Used Date Smoking Tobacco: Never Assessed Sex and Gender Information Value Date Recorded Sex Assigned at Not on file Legal Sex Male 4:57 AM 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
--- OUTSIDE RECORDS SUMMARY | 2025-04-21 21:31 | XMS_ITS | Clinical Summary ---
Author Organization [facility] Address [facility] [place] [address] Care Team Providers Care Portrait Painter Name Role Phone None, Provider MD Primary [...] CDT - 02/06/2025 4:50 PM CDT Emergency [facility] [place] [address] Luna Zabala Dg, MEDICAL AND HEALTH SERVICES MANAGER Abdominal Pain Discharge Disposition: Home or [...] 4:01 PM Narrative 02/06/2025 4:15 PM CDT [address] [address] EXAM: CT ABDOMEN - PELVIS WITHOUT CONTRAST [...] mildly enlarged prostate gland. SOFT TISSUES-OSSEOUS: Bilateral [id number] fat-containing inguinal hernias. Tiny fat-containing umbilical hernia. Osseous degenerative changes redemonstrated. Stable straightening of the visualized spine. Stable subcentimeter osseous sclerotic lesions that are too small to characterize but statistically likely probably benign entities such as bone islands. Procedure Note Lizzie Le MD - 02/06/[address] [address] EXAM: CT ABDOMEN - PELVIS WITHOUT CONTRAST [...] mildly enlarged prostate gland. SOFT TISSUES-OSSEOUS: Bilateral [id number] fat-containing inguinalhernias. Tiny fat-containing umbilical hernia. Osseous [...] MD, 02/06/2025 4:01 PM us Luna Zabala MEDICAL AND HEALTH SERVICES MANAGER CT Final Resul t * (ABNORMAL) COMPREHENSIVE METABOLIC PANEL (02/06/2025 2:05 PM CDT) GLUCOSE 87 70 - 99 MG/DL 02/06/2025 3:00 PM CDT [facility] BUN 7 7 - 18 MG/DL 02/06/2025 3:00 PM CDT [facility] CREATININE S/P/B 1.17 0.7 - 1.3 MG/DL 02/06/2025 3:00 PM CDT [facility] SODIUM S/P/B 139 136 - 145 MMOL/L 02/06/2025 3:00 PM CDT [facility] POTASSIUM S/P/B 3.2(L) 3.5 - 5.1 MMOL/L 02/06/2025 3:00 PM CDT [facility] CHLORIDE S/P/B 103 97 - 115 MMOL/L 02/06/2025 3:00 PM T [facility] CO2 27.8 21 - 32 MMOL/L 02/06/2025 3:00 PM T [facility] CALCIUM S/P/B 9.3 8.5 - 10.1 MG/DL 02/06/2025 3:00 PM T [facility] BILIRUBIN TOTAL S/P/B 2.4(H) 0.2 - 1.2 MG/DL 02/06/2025 3:00 PM T [facility] Comment: THIS ASSAY IS NOT RECOMMENDED FOR PATIENTS UNDERGOING TREATMENT WITH ELTROMBOPAG DUE TO THE POTENTIAL FOR FALSELY ELEVATED RESULTS. TOTAL PROTEIN S/P/B 8.6(H) 6.4 - 8.2 G/DL 02/06/2025 3:00 PM T [facility] ALBUMIN S/P/B 4.4 3.4 - 5.0 G/DL 02/06/2025 3:00 PM T [facility] AST 29 15 - 37 U/L 02/06/2025 3:00 PM T [facility] ALT 33 16 - 60 U/L 02/06/2025 3:00 PM T [facility] ALKALINE PHOSPHATASE S/P/B 75 50 - 136 U/L 02/06/2025 3:00 PM T [facility] ANION GAP 8.2 2 - 10 MMOL/L 02/06/2025 3:00 PM T [facility] BUN CREATININE RATIO 6.0 6 - 02/06/2025 3:00 PM T [facility] A/G RATIO 1.0 1.0 - 2.0 RATIO 02/06/2025 3:00 PM T [facility] GFR ESTIMATE 75(L) >90 ML/MIN/1.7 3 M2 02/06/2025 3:00 PM CDT [facility] Comment: NOTE: eGFR is not [...] Ramila Phillips PA-C LABORATORY Final Resul t [facility] [address] [place] [address], * (ABNORMAL) CBC W/DIFF AUTOMATED (02/06/2025 2:05 PM CDT) WBC 5.86 4.5 - 11.0 x10'3/uL 02/06/2025 3:04 PM CDT [facility] RBC 5.90 4.70 - 6.10 x10'6/uL 02/06/2025 3:04 PM CDT [facility] HGB 12.1(L) 14.0 - 18.0 G/DL 02/06/2025 3:04 PM CDT [facility] HCT 40.5(L) 43.0 - 54.0 % 02/06/2025 3:04 PM CDT [facility] MCV 68.6(L) 80.0 - 94.0 FL 02/06/2025 3:04 PM CDT [facility] MCH 20.5(L) 27.0 - 31.0 PG 02/06/2025 3:04 PM CDT [facility] MCHC 29.9(L) 32.0 - 36.0 G/DL 02/06/2025 3:04 PM CDT [facility] RDW 18.7(H) 11.5 - 14.5 % 02/06/2025 3:04 PM CDT [facility] PLT 208 130 - 400 x10'3/uL 02/06/2025 3:04 PM CDT [facility] MPV 9.7 9.3 - 12.2 FL 02/06/2025 3:04 PM CDT [facility] DIFFERENTIAL TYPE AUTOMATED DIFFERENTIAL 02/06/2025 3:05 PM CDT [facility] NEUTROPHILS % 66.0 % 02/06/2025 3:05 PM CDT [facility] LYMPHOCYTES % 25.3 % 02/06/2025 3:05 PM CDT [facility] MONOCYTES % 5.8 % 02/06/2025 3:05 PM CDT [facility] EOSINOPHILS 2.2 % 02/06/2025 3:05 PM CDT [facility] BASOPHILS 0.7 % 02/06/2025 3:05 PM CDT [facility] IMMATURE GRANS % 0.0 % 02/07/20 3:05 PM CDT [facility] ABS. NEUTROPHILS 3.87 1.80 - 7.70 x10'3/uL 02/06/2025 3:05 PM CDT [facility] ABS. LYMPHOCYTES 1.48 1.00 - 4.80 x10'3/uL 02/06/2025 3:05 PM CDT [facility] ABS. MONOCYTES 0.34 0.30 - 0.82 x10'3/uL 02/06/2025 3:05 PM CDT [facility] ABS. EOSINOPHILS 0.13 0.04 - 0.54 x10'3/uL 02/06/2025 3:05 PM CDT [facility] ABS. BASOPHILS 0.04 0.01 - 0.08 x10'3/uL 02/06/2025 3:05 PM CDT [facility] ABS. IMMATURE GRANULOCYTES 0.00 0.00 - 0.49 x10'3/uL 02/06/2025 3:05 PM CDT [facility] RBC MORPHOLOGY SLIDE REVIEWED 2024 3:05 PM CDT [facility] POIKLO 1+ 02/06/2025 3:05 PM CDT [facility] MICRO 2+ 02/06/2025 3:05 PM CDT [facility] POLY 1+ 02/06/2025 3:05 PM CDT [facility] PLT EST. ADEQUATE 02/06/2025 3:05 PM CDT [facility] 02/06/2025 2:05 PM CDT Ramila Phillips PA-C LABORATORY Final Resul t [facility] [address] [place] [id number], [place] [phone] * TROPONIN, QUANT (02/06/2025 2:05 PM CDT) TROPONIN I HIGH SENSITIVITY 25 <79 ng/L 02/06/2025 3:00 PM CDT [facility] Comment: HIGH DOSES OF BIOTIN, TROPONIN-SPECIFIC AUTOANTIBODIES, AND ANTIBODY THERAPY CONTAINING HAMA MAY INTERFERE WITH THIS TEST RESULT. CORRELATION TO CLINICAL HISTORY AND PRESENTATION RECOMMENDED. 02/06/2025 2:05 PM CDT us Ramila Phillips PA-C LABORATORY Final Resul t [facility] [address] [place] [address], [place] [phone] * LIPASE (02/06/2025 2:05 PM CDT) LIPASE 32 13 - 75 UNITS/L 02/06/2025 3:00 PM CDT [facility] 02/06/2025 2:05 PM CDT Ramila Phillips PA-C LABORATORY Final Resul t [facility] [address] [place] [address], [place] [phone] * URINALYSIS (02/06/2025 2:03 PM CDT) Pathologist [facility] SPECIMEN TYPE URINE CLEAN CATCH 02/06/2025 2:04 PM CDT [facility] COLOR (U) COLORLESS 02/06/2025 2:41 PM CDT [facility] TRANSPARENCY CLEAR 02/06/2025 2:41 PM CDT [facility] SPECIFIC GRAVITY (U) 1.003 1.001 - 1.030 02/06/2025 2:41 PM CDT [facility] U PH 6.5 5.0 - 9.0 02/06/2025 2:41 PM CDT [facility] LEUKOCYTES (U) NEGATIVE NEGATIVE 02/06/2025 2:41 PM CDT [facility] NITRITES NEGATIVE NEGATIVE 02/06/2025 2:41 PM CDT [facility] PROTEIN RANDOM (U) NEGATIVE <30 MG/DL 02/06/2025 2:41 PM CDT [facility] GLUCOSE (U) NORMAL NORMAL MG/DL 02/06/2025 2:41 PM CDT [facility] KETONES MG/DL (U) NEGATIVE NEGATIVE MG/DL 02/06/2025 2:41 PM CDT [facility] UROBILINOGEN NORMAL NORMAL MG/DL 02/06/2025 2:41 PM CDT [facility] BILIRUBIN (U) NEGATIVE NEGATIVE MG/DL 02/06/2025 2:41 PM CDT [facility] BLOOD (U) NEGATIVE NEGATIVE 02/06/2025 2:41 PM CDT [facility] URINE SPECIMEN OBTAINED BY CLEAN CATCH PROCEDURE / Unknown 02/06/2025 2:03 PM CDT us Ramila Phillips PA-C URINE ORDERABLES Final Resu lt [facility] [address] [place] [address], * ECG 12 lead (02/06/2025 1:55 PM CDT) 02/06/2025 1:55 PM CDT Narrative [facility] ([facility] RAD - 02/06/2025 8:[address] PM [address]T [address] Test Date: 2025-02-06 Pat Name: CARLOS KELLY Department: 41 Room: [facility] Gender: Male Surveyor Helper: : 1970 Requested By: RAMILA PHILLIPS Order Number: [id number] Reading MD: [place] Marks Measurements Intervals [place] Rate: 61 P: -1 TX: 154 QRS: 18 QRSD: 106 T: 2 QT: 414 QTc: 418 Interpretive Statements SINUS RHYTHM Compared to ECG 06/18/2018 19:37:45 No significant changes Procedure Note North Marks MD - 02/06/2025 [facility] [place] [address] Elise [place] Test Date: 2025-02-06 Pat Name: FRANCESCOTEETEE ROBIN Department: 41 Room: [facility] Gender: Male Surveyor Helper: : 1970 Requested By: RAMILA PHILLIPS Order Number: [id number] Reading MD: [place] Marks Measurements Intervals [place] Rate: 61 P: -1 TX: 154 QRS: 18 QRSD: 106 T: 2 QT: 414 QTc: 418 Interpretive Statements SINUS RHYTHM Compared to ECG 06/18/2018 19:37:45 No significant changes us Ramila Phillips PA-C ECG ORDERABLES Final Resul t [facility] ([facility]) RAD from Last 3 Months Insurance [employer] Care Teams Portrait Painter Relationship Specialty Start Date End Date None, Provider, PCP - General 12/31/19
--- OUTSIDE RECORDS SUMMARY | 2025-04-21 21:31 | XMS_ITS | Encounter Summary ---
Author Organization [employer] Address [address] [place] [address] Care Team Providers Care Vehicle Assembly Inspector Name Role Phone Howard Trinidad MD Primary Care Provider Un available Encounter Details Date Type Department Care Team (Late st Contact Info) Description 11/22/2007 Emergency [facility] Er, Authorized P NO ADDRESS ON FILE Arie Justice MD [address] [place] [address] [place] [address] Social History Tobacco Use Types Packs/Day Years Used Date Smoking Tobacco: Never Assessed Sex and Gender Information Value Date Recorded Sex Assigned at Not on file Legal Sex Male 4:57 AM CLINICAL UNIT COORDINATOR Gender Identity Not on file Sexual Orientation Not on file documented as of this encounter Plan of Treatment Not on file documented as of this encounter Visit Diagnoses Not on filedocumented in this encounter Care Teams Vehicle Assembly Inspector Relationship Specialty Start Date End Date Howard Trinidad MD PCP - General Family Practice 01/25/16 01/26/16 documented as of this encounter
--- OUTSIDE RECORDS SUMMARY | 2025-04-21 21:31 | XMS_ITS | Encounter Summary ---
Author Organization [employer] Address 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
--- OUTSIDE RECORDS SUMMARY | 2025-04-21 21:31 | XMS_ITS | Encounter Summary ---
Author Organization [employer] Address [address] [place] [address] Care Team Providers Care Acoustical Tile Drill Press Operator Name Role Phone Howard Trinidad MD [...] on file Legal Sex Male 4:57 AM [facility] Gender Identity Not on file Sexual Orientation Not on file documented as of this encounter Plan of Treatment Not on file documented as of this encounter Visit Diagnoses Diagnosis Other general symptoms(780.99)- Primary Other general symptoms documented in this encounter Care Teams Acoustical Tile Drill Press Operator Relationship Specialty Start Date End Date Howard Trinidad MD PCP - General Family Practice 01/25/16 01/26/16 documented as of this encounter
--- OUTSIDE RECORDS SUMMARY | 2025-04-21 21:31 | XMS_ITS | Encounter Summary ---
Author Organization [employer] Address 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
--- OUTSIDE RECORDS SUMMARY | 2025-04-21 21:31 | XMS_ITS | Encounter Summary ---
Author Organization [employer] Address [address] [place] [address] Care Team Providers Care Pipe Threading Machine Operator Name Role Phone Howard Trinidad [...] on file Legal Sex Male 4:57 AM DANCING MASTER Gender Identity Not on file Sexual Orientation Not on file documented as of this encounter Plan of Treatment Not on file documented as of this encounter Visit Diagnoses Diagnosis Depressive disorder, not elsewhere classified- Primary documented in this encounter Care Teams Pipe Threading Machine Operator Relationship Specialty Start Date End Date Howard Trinidad MD PCP - General Family Practice 01/25/16 01/26/16 documented as of this encounter
--- OUTSIDE RECORDS SUMMARY | 2025-04-21 21:31 | XMS_ITS | Encounter Summary ---
Author Organization [employer] Address [address] [place] [address] Care Team Providers Care Professional Employer Consultant Name Role Phone Howard Trinidad MD Primary Care Provider Un available Encounter Details Date Type Department Care Team (Late st Contact Info) Description 03/02/2005 Outpatient Historical [facility] Support Serv. (Adt Cardiology[facility]) [address] [place] [address] Vignesh Gurrola MD NO ADDRESS ON FILE Social History Tobacco Use Types Packs/Day Years Used Date Smoking Tobacco: Never Assessed Sex and Gender Information Value Date Recorded Sex Assigned at Not on file Legal Sex Male 4:57 AM OPHTHALMOLOGY SURGICAL TECHNICIAN Gender Identity Not on file Sexual Orientation Not on file documented as of this encounter Plan of Treatment Not on file documented as of this encounter Visit Diagnoses Not on filedocumented in this encounter Care Teams Professional Employer Consultant Relationship Specialty Start Date End Date Howard Trinidad MD PCP - General Family Practice 01/25/16 01/26/16 documented as of this encounter
--- OUTSIDE RECORDS SUMMARY | 2025-04-21 21:31 | XMS_ITS | Encounter Summary ---
Author Organization [employer] Address [address] [place] [address] Care Team Providers Care Retail Buyer Name Role Phone Howard Trinidad MD Primary [...] file Legal Sex Male 4:57 AM HEAD TENNIS PROFESSIONAL Gender Identity Not on file Sexual Orientation Not on file documented as of this encounter Plan of Treatment Not on file documented as of this encounter Visit Diagnoses Diagnosis Abdominal pain, left lower quadrant- Primary documented in this encounter Care Teams Retail Buyer Relationship Specialty Start Date End Date Howard Trinidad MD PCP - General Family Practice 01/25/16 01/26/16 documented as of this encounter
--- OUTSIDE RECORDS SUMMARY | 2025-04-21 21:31 | XMS_ITS | Encounter Summary ---
Author Organization [employer] Address [address] [place] [address] Care Team Providers Care Parts Control Clerk Name Role Phone Howard Trinidad MD Primary Care Provider Un available Encounter Details Date Type Department Care Team (Late st Contact Info) Description 03/17/2003 Emergency [facility] Venus Sotelo MD [address] [place] [id number] Er, Authorized P NO ADDRESS ON FILE DEPRESSIVE DISORDER NEC (Primary Dx) Social History Tobacco Use Types Packs/Day Years Used Date Smoking Tobacco: Never Assessed Sex and Gender Information Value Date Recorded Sex Assigned at Not on file Legal Sex Male 4:57 AM EMAIL ENGINEER Gender Identity Not on file Sexual Orientation Not on file documented as of this encounter Plan of Treatment Not on file documented as of this encounter Visit Diagnoses Diagnosis Depressive disorder, not elsewhere classified- Primary documented in this encounter Care Teams Parts Control Clerk Relationship Specialty Start Date End Date Howard Trinidad MD PCP - General Family Practice 01/25/16 01/26/16 documented as of this encounter
--- OUTSIDE RECORDS SUMMARY | 2025-04-21 21:31 | XMS_ITS | Clinical Summary ---
Author Organization [facility] Address [address] [place] [address] Care Team Providers Care Incident Handler Name Role Phone Unavailable Primary Care Provider [...] None 6 Active fluticasone (FLONASE) 50 mcg/spray [place], Suspension Administer 2 Sprays in each nostril [...] on file Legal Sex Male 4:57 AM CANT HOOKER Gender Identity Not on file Sexual Orientation Not on file Occupation Industry Job Start Date Job End Date Not on file Not on file Not on file Not on file Not on file Not on file Not on file Not on file Last Filed Vital Signs Vital Sign Reading Time Taken Comments Blood Pressure 152/94 11/18/2019 7:07 AM CANT HOOKER Pulse 66 11/18/2019 7:07 AM CANT HOOKER Temperature 36.7 C (98.1 F) 11/18/2019 5:34 AM CANT HOOKER Respiratory Rate 18 11/18/2019 7:07 AM CANT HOOKER Oxygen Saturation 98% 11/18/2019 7:07 AM CANT HOOKER Inhaled Oxygen Concentration - - Weight 120.2 kg (265 lb) 11/18/2019 5:34 AM CANT HOOKER Height 188 cm (6' 2) 11/18/2019 5:34 AM CANT HOOKER Body Mass Index 34.02 11/18/2019 5:34 AM CANT HOOKER Plan of Treatment Health Maintenance Due Date [...] - 6.1 % 07/02/2015 5:[address] [facility] EST. AVG GLUCOSE, A1C 140 mg/dL 07/02/2015 5:[address] [facility] Blood Venipuncture - Floor Collect / Unknown 07/02/2015 2:10 AM CDT 07/02/2015 2:[address] [facility] - 07/02/2015 5:25 PM CDT Based on the ADAG study equation. us Iwona Arteaga APN CHEMISTRY ORDERABLES Final R esult [facility] CLIA# [id number] [address] [place] [address] from Last 3 Months or Most Recently Relevant to Health Maintenance Insurance MEDICAID Advance Directives For more information, please contact: [phone] * Full Code (Latest Code Status on File) Date Activated Date Inactivated Comments 07/02/2015 8:36 AM 07/02/2015 8:02 PM * Full Code Date Activated Date Inactivated Comments 08/28/2014 2:37 PM 08/28/2014 5:13 PM
--- OUTSIDE RECORDS SUMMARY | 2025-04-21 21:31 | XMS_ITS | Encounter Summary ---
Author Organization [employer] Address [address] [place] [address] Care Team Providers Care Allocations Clerk Name Role Phone Howard Trinidad MD Primary Care Provider Un available Encounter Details Date Type Department Care Team (Late st Contact Info) Description 07/11/2008 Emergency [facility] [place], Authorized P NO ADDRESS ON FILE Ryland Virgen MD [address] [place] [address] Social History Tobacco Use Types Packs/Day Years Used Date Smoking Tobacco: Never Assessed Sex and Gender Information Value Date Recorded Sex Assigned at Not on file Legal Sex Male 4:57 AM DIRECTOR OF MARKETING [employer] PER[employer]MANCE ADS Gender Identity Not on file Sexual Orientation Not on file documented as of this encounter Plan of Treatment Not on file documented as of this encounter Visit Diagnoses Not on filedocumented in this encounter Care Teams Allocations Clerk Relationship Specialty Start Date End Date Howard Trinidad MD PCP - General Family Practice 01/25/16 01/26/16 documented as of this encounter
--- OUTSIDE RECORDS SUMMARY | 2025-04-21 21:31 | XMS_ITS | Encounter Summary ---
Author Organization [employer] Address 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 He indicated he had called [...] on filedocumented in this encounter Care Teams Procedure Rn Relationship Specialty Start Date End Date Howard Trinidad MD PCP - General Family Practice 01/25/16 01/26/16 documented as of this encounter
--- OUTSIDE RECORDS SUMMARY | 2025-04-21 21:31 | XMS_ITS | Clinical Summary ---
Author Organization [facility] Address [address] [place] [address] Phone Care Team Providers Care Carton Catcher Name Role Phone Unavailable Primary Care Provider [...]
--- OUTSIDE RECORDS SUMMARY | 2025-04-21 21:31 | XMS_ITS | Encounter Summary ---
Author Organization [employer] Address 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
--- OUTSIDE RECORDS SUMMARY | 2025-04-21 21:31 | XMS_ITS | Encounter Summary ---
Author Organization [employer] Address 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
--- OUTSIDE RECORDS SUMMARY | 2025-04-21 21:31 | XMS_ITS | Encounter Summary ---
Author Organization [facility] Address [address] [place] [address] Care Team Providers Care Paid Internship Name Role Phone None, Provider Primary Care Provider Alisson oliva Encounter Details Date Type Department Care Team (Late st Contact Info) Description 01/04/2020 Telephone [facility] [place] [address] Lee Ann Aguilar LCSW Social [...] documented as of this encounter Care Teams Paid Internship Relationship Specialty Start Date End Date None, Provider, PCP - General 12/31/19 documented as of this encounter
--- OUTSIDE RECORDS SUMMARY | 2025-04-21 21:31 | XMS_ITS | Encounter Summary ---
Author Organization [employer] Address 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
--- OUTSIDE RECORDS SUMMARY | 2025-04-21 21:31 | XMS_ITS | Encounter Summary ---
Author Organization [employer] Address [address] [place] [address] Care Team Providers Care Big Data Admin Name Role Phone Howard Trinidad MD Primary Care Provider Un available Encounter Details Date Type Department Care Team (Late st Contact Info) Description 04/27/2009 Emergency [facility] Er, Authorized P NO ADDRESS ON FILE Balta Sahu MD [address] [place] [address] [place] [address] Edin Marcum MD 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 FINDINGS: The heart and mediastinum are normal. There is no infiltrate, contusion, pneumothorax or pleural fluid. The visualized bony thorax is normal. IMPRESSION: Normal AP chest. . Dictated by: LEANDRE GORDON 04/27/2009 07:51 Electronically signed by: LEANDER GORDON 04/27/2009 08:07 Transcribed: 04/27/2009 07:56 SMM Procedure Note Leander Gordon - 04/27/2009 [address] [place], [place] [address] Admit Date: 04/27/2009 CARLOS KELLY Sex: M Admit Prov: BALTA SAHU Date: 1970 Primary Care Prov: CMRN: [id number] [facility] [address] [place] [address] IMAGING SERVICES Ordering Prov: N/A Interpretation PORTABLE [...] CDT) MCH 27.8 27.2 - 32.6 pg [facility] MPV 9.7 9.3 - 12.4 fL [facility] HEMATOCRIT 42.4 40.0 - 48.0 % [facility] RDW-STDEV 41.9 37.1 - 48.7 fL [facility] RBC 5.29 4.50 - 5.40 M/uL [facility] MCHC 34.7 31.5 - 35.5 % [facility] MCV 80.2(L) 82.0 - 99.0 fL [facility] PLATELETS 187 140 - 350 K/uL [facility] HEMOGLOBIN 14.7 13.6 - 16.5 g/dL [facility] RDW 14.7(H) 11.5 - 14.5 % [facility] WBC 7.2 4.0 - 9.8 K/uL [facility] BASOPHILS 0 0 - 2 % [facility] BASOPHILS ABSOLUTE 0.02 0.00 - 0.20 K/uL [facility] MONOCYTES 8 3 - 13 % [facility] MONOCYTE ABSOLUTE 0.56 0.10 - 1.30 K/uL [facility] NEUTROPHILS 56 45 - 70 % [facility] NEUTROPHIL ABSOLUTE 4.00 1.90 - 7.00 K/uL [facility] EOSINOPHILS 2 0 - 7 % [facility] EOSINOPHIL ABSOLUTE 0.16 0.00 - 0.70 K/uL [facility] LYMPHOCYTES 34 16 - 45 % [facility] LYMPHOCYTE ABSOLUTE 2.43 0.70 - 4.50 K/uL [facility] Blood specimen (specimen) 04/27/2009 12:08 AM CDT 04/27/2009 12:13 AM CDT Edin Marcum MD HEMATOLOGY ORDERABLES Edited Performing Organization Address [facility] Co de Phone Number [facility] CLIA# [id number] [address] [place] [address] * CARDIAC ENZYMES (04/27/2009 12:08 AM CDT) Pathologist [facility] TROPONIN T <0.01 <=0.03 ng/mL [facility] TROPONIN T INTERP Negative [facility] Blood specimen (specimen) 04/27/2009 12:08 AM CDT 04/27/2009 12:13 AM CDT Edin Marcum MD CHEMISTRY ORDERABLES Edited Performing Organization Address [facility] de Phone Number [facility] CLIA# [id number] [address] [place] [address] * (ABNORMAL) COMPREHENSIVE METABOLIC PANEL (04/27/2009 12:08 AM CDT) CREATININE 0.92 0.67 - 1.17 mg/dL [facility] ALT 130(H) 0 - 41 U/L [facility] SODIUM 141 135 - 145 mmol/L [facility] ALKALINE PHOSPHATASE 71 40 - 129 U/L [facility] CO2 32(H) 22 - 30 mmol/L [facility] BILIRUBIN TOTAL 1.2(H) 0.2 - 1.0 mg/dL [facility] POTASSIUM 3.7 3.5 - 4.9 mmol/L [facility] TOTAL PROTEIN 8.3 6.3 - 8.6 g/dL [facility] GLUCOSE 81 65 - 99 mg/dL [facility] AST 118(H) 12 - 38 U/L [facility] BUN 10 6 - 20 mg/dL [facility] CALCIUM 9.7 8.6 - 10.2 mg/dL [facility] ALBUMIN 4.6 3.4 - 4.8 g/dL [facility] CHLORIDE 101 96 - 108 mmol/L [facility] GFR, >60 >=60 mL/min/1. 7 sq meter [facility] GFR >60 >=60 mL/min/1. 7 sq meter [facility] Comment: Modification of Diet in Renal Disease (MDRD) study formula. Estimated GFR rate interpretative information for both Americans and non- Americans is available on the [facility] Intranet at: [email or web address] Select: Lab Policies and Procedures Select: Reference Ranges - GFR Blood specimen (specimen) 04/27/2009 12:08 AM CDT 04/27/2009 12:13 AM CDT us Edin Marcum MD CHEMISTRY ORDERABLES Edited [facility] CLIA# [id number] [address] [place] [address] documented in this encounter Visit Diagnoses Not on filedocumented in this encounter Care Teams Big Data Admin Relationship Specialty Start Date End Date Howard Trinidad MD PCP - General Family Practice 01/25/16 01/26/16 documented as of this encounter
[2025-04-21 21:32] LABS: Partial Thromboplastin Time 35.8 Seconds (22.3-36.8)
[2025-04-21 21:43] LABS: Troponin I < 0.012 ng/mL (0.000-0.034)
--- NOTE | 2025-04-21 21:58 | ED.GENADULT ---
HPI - General Adult General Chief complaint: Unspecified Stated complaint: headache, vision changes Time Seen by Provider: 04/21/25 21:18 History of Present Illness HPI narrative: 55-year-old male presenting to the emergency department with left-sided headache he describes as throbbing in nature. States he has no history of migraines but has had multiple concussions in the past. No history of blood thinner use. No new or recent head trauma. No loss of consciousness. No history of strokes or heart attacks. States that he was recently diagnosed with sinusitis several days ago and been taking ciprofloxacin. Still endorses some drainage from his left-side. Has been taking Excedrin headache with migraine as well as Tylenol with intermittent relief of his symptoms. Patient is having multiple complaints and is a difficult historian trying to elicit review of systems or his concerns today. Patient vacillates multiple times throughout the encounter bring up various previous health concerns and attributes it to not having a primary care provider as well as trying to get refills of his alprazolam without success. Related Data Home Medications ?Medication ?Instructions ?Recorded ?Confirmed ?Last Taken ?Type potassium chloride 10 mEq 10 meq PO DAILY 06/09/23 07/26/24 08/18/24 History tablet,extended release omeprazole 40 mg capsule,delayed 40 mg PO DAILY 04/22/24 08/29/24 08/18/24 History release alprazolam 2 mg tablet mg 04/17/25 Unknown History Allergies Allergy/AdvReac Type Severity Reaction Status Date / Time Iodinated Contrast Media Allergy Severe Anaphylaxis Verified 04/21/25 20:48 metformin Allergy Severe Stopped Verified 04/21/25 20:48 Breathing Sulfa (Sulfonamide Allergy Severe Anaphylaxis Verified 04/21/25 20:48 Antibiotics) sulfamethoxazole Allergy Severe Anaphylaxis Verified 04/21/25 20:48 famotidine Allergy Intermediate Hives Verified 04/21/25 20:48 losartan Allergy Intermediate SWLLEING Verified 04/21/25 20:48 LIP AND HIVES nebivolol Allergy Intermediate LIP Verified 04/21/25 20:48 SWELLING Quinolones Allergy Intermediate Nervousness Verified 04/21/25 20:48 valsartan Allergy Intermediate HIVES/SOB Verified 04/21/25 20:48 amlodipine Allergy Mild HIVES Verified 04/21/25 20:48 azithromycin Allergy Mild Nervousness Verified 04/21/25 20:48 pantoprazole Allergy Mild Hives Verified 04/21/25 20:48 spironolactone Allergy Mild RASH AND Verified 04/21/25 20:48 ITCHING trimethoprim Allergy Mild RASH Verified 04/21/25 20:48 morphine Allergy Unknown Verified 04/21/25 20:48 cephalexin AdvReac Mild Nervousness Verified 04/21/25 20:48 flavoxate AdvReac Mild Nervousness Verified 04/21/25 20:48 levofloxacin AdvReac Mild Nervousness Verified 04/21/25 20:48 lidocaine AdvReac Mild Nervousness Verified 04/21/25 20:48 lisinopril AdvReac Mild Nervousness Verified 04/21/25 20:48 nitrofurantoin AdvReac Mild Nervousness Verified 04/21/25 20:48 oxycodone AdvReac Mild Nervousness Verified 04/21/25 20:48 paroxetine AdvReac Mild Nervousness Verified 04/21/25 20:48 Review of Systems Review of Systems: As reviewed above in HPI [facility] Past Medical History Medical History Prediabetes Allergic rhinitis Chronic sinusitis Chronic post-traumatic stress disorder (PTSD) Anxiety Depression GERD (gastroesophageal reflux disease) Sleep apnea Asthma HTN (hypertension) CAD (coronary artery disease) history NC Concussion Surgical History Surgical History H/O gastric bypass Hx of cholecystectomy History of cardiac cath History of colonoscopy Family History Family History Grandparent Family history of obesity Hypertension Diabetes mellitus Mother Depression Patient's mother is in good health Family history of mental disorder Father Hypertension Patient's father is in good health Family history of alcoholism Cerebrovascular accident Sibling Patient's sister is in good health Patient's brother is in good health Father Cerebrovascular accident Alcoholism Hypertension Heart disease Mother Family history of malignant neoplasm Depression Hypertension Other Family history of cardiovascular disease Social History Social History Smoking status: Former smoker Smoking end date: 09/13/95 Alcohol intake: former Substance use: never Substance use type: opiates Lack of Transportation: No Lack of Food: Never True Current Housing: I Have Housing Concerned About Future Housing: No Difficulty Paying Gas/Electric Bills: No Difficulty Paying for Meds: No Currently Unemployed: No Education: Master's Degree or Higher Difficulty w/ Childcare or Family Care: No Living arrangements: alone Occupation/Education: occupation Gender identity (if verbalized by the patient): Male Sexual Orientation (if Verbalized by the Patient): Straight or Heterosexual Spiritual care concerns: No Exam Narrative: GENERAL: [Well-appearing, well-nourished, and in no acute distress.] HEAD: [Normocephalic, atraumatic.] EYES: [PERRLA and EOMI.] ENT: Sinus congestion evident, bilateral tympanic membranes with some effusions without any evidence of otitis media, maxillary tenderness reproducible with palpation and jehovah's witness tenderness reproducible with palpation. Oral examination reveals previous dental work but no apical abscesses or dental caries. NECK: Supple. CHEST: [Clear to auscultation. No respiratory distress.] HEART: [Regular rate and rhythm]. No murmur heard. [Normal peripheral pulses.] ABDOMEN: [Soft, nondistended], [nontender], [No rigidity or guarding] EXTREMITIES: Normal range of motion. [No edema.] SKIN: Warm, dry, no rash. NEURO: [No focal deficits]. Alert and oriented [x3.] PSYCH: [Normal mood and affect.] Course Vital Signs Vital signs: Vital Signs Temperature 36.9 C 04/21/25 20:51 Pulse Rate 60 04/21/25 20:51 Respiratory Rate 18 04/21/25 20:51 Pulse Oximetry 98 04/21/25 20:51 Oxygen Delivery Room Air 04/21/25 20:51 Temperature 36.9 C 04/22/25 00:14 Pulse Rate 61 04/22/25 00:14 Respiratory Rate 18 04/22/25 00:14 Blood Pressure 124/74 04/22/25 00:14 Pulse Oximetry 97 04/22/25 00:14 Oxygen Delivery Room Air 04/21/25 20:51 Medical Decision Making MDM Narrative Medical decision making narrative: 55-year-old male presenting to the emergency department with left-sided headache he describes as throbbing in nature. States he has no history of migraines but has had multiple concussions in the past. No history of blood thinner use. No new or recent head trauma. No loss of consciousness. No history of strokes or heart attacks. States that he was recently diagnosed with sinusitis several days ago and been taking ciprofloxacin. Still endorses some drainage from his left-side. Has been taking Excedrin headache with migraine as well as Tylenol with intermittent relief of his symptoms. Patient is having multiple complaints and is a difficult historian trying to elicit review of systems or his concerns today. Patient vacillates multiple times throughout the encounter bring up various previous health concerns and attributes it to not having a primary care provider as well as trying to get refills of his alprazolam without success. Examination reveals sinus congestion evident, bilateral tympanic membranes with some effusions without any evidence of otitis media, maxillary tenderness reproducible with palpation and jehovah's witness tenderness reproducible with palpation. Oral examination reveals previous dental work but no apical abscesses or dental caries. Patient has normal vital signs here, blood pressure 140/83, no tachycardia, tachypnea or fever. Patient has signs symptoms of sinusitis and most likely the cause of his headache today although other etiology includes migraine headache described as a throbbing unilateral sensation, tension headache or muscle spasm in the cervical region. No clinical signs or symptoms of any neurological dysfunction or head injuries that make me suspicious for intracranial pathology such as stroke or hemorrhage. Patient again is poor historian and when we discussed treatment options for his migraine headache he declined all of the options I offered and listed including Toradol, magnesium, Compazine, Reglan, diphenhydramine. States he is allergic to morphine. I asked the patient what he wanted for his headache and he states he just wants answers. CT of the head was obtained as well as basic laboratory studies, EKG and chest x-ray. CTs are unremarkable. Laboratory studies are unrevealing. I went and re-evaluated the patient and given the unremarkable findings and workup I believe his symptoms are related to migraine. We had an extensive discussion about potential treatment regimen and he states he did have relief with Flexeril and Excedrin which was offered to him here. He is also requesting a refill of Flonase. Patient sent home with these prescriptions and also given return precautions and follow-up instructions. Patient comfortable with the plan. Medical Records Medical records reviewed: Yes I reviewed the external patient's medical records. Vital Signs Vital Signs: Vital Signs Temperature 36.9 C 04/21/25 20:51 Pulse Rate 60 04/21/25 20:51 Respiratory Rate 18 04/21/25 20:51 Pulse Oximetry 98 04/21/25 20:51 Oxygen Delivery Room Air 04/21/25 20:51 Temperature 36.9 C 04/22/25 00:14 Pulse Rate 61 04/22/25 00:14 Respiratory Rate 18 04/22/25 00:14 Blood Pressure 124/74 04/22/25 00:14 Pulse Oximetry 97 04/22/25 00:14 Oxygen Delivery Room Air 04/21/25 20:51 Lab Data Lab results reviewed: Yes I reviewed the patient's lab results. 04/21/25 21:07 04/21/25 21:07 Labs: Lab Results 04/21/25 Range/Units 21:07 WBC 5.1 (4.5-10.0) K/mm3 RBC 5.54 (4.6-6.20) M/mm3 Hgb 11.2 L (14.0-18.0) g/dL Hct 38.2 L (42.0-52.0) % MCV 69.0 L (80-100) fl MCH 20.2 L (26-34) pg MCHC 29.3 L (32-36) g/dl RDW 18.3 H (11.5-14.5) % Plt Count 161 (150-375) k/mm3 MPV 9.5 (7.4-10.4) fl Immature Gran % (Auto) 0.4 (0-0.5) % Neut % (Auto) 69.2 (45.5-73.1) % Lymph % (Auto) 22.2 (18.3-44.2) % Bracken % (Auto) 5.0 (2.6-8.5) % Eos % (Auto) 2.6 (0-4.4) % Baso % (Auto) 0.6 (0.2-1.2) % Lymph # (Auto) 1.12 (0.9-3.2) K/mm3 Bracken # (Auto) 0.3 (0.1-0.6) K/mm3 Eos # (Auto) 0.1 (0-0.3) K/mm3 Baso # (Auto) 0.0 (0.0-0.1) K/mm3 Abs Immat Gran (auto) 0.02 (0.00-0.031) K/mm3 Absolute Neuts (auto) 3.5 (1.3-6.7) K/mm3 Absolute Nucleated RBC 0.000 (0.0-0.012) K/mm3 Band Neutrophils % Not Reportable Nucleated RBC % 0.0 (0.0-0.2) % Platelet Estimate Adequate (Adequate) Hypochromasia 1+ Anisocytosis 1+ Microcytosis 1+ (NORMAL) Ovalocytes 1+ Schistocytes None seen PT 14.5 (11.1-14.7) Seconds INR 1.1 APTT 35.8 (22.3-36.8) Seconds Sodium 135 L (137-145) mmol/L Potassium 3.5 (3.4-5.0) mmol/L Chloride 100 (98-107) mmol/L Carbon Dioxide 28 (22-30) mmol/L Anion Gap 7 (4-12) mmol/L BUN 10 (9-20) mg/dL Creatinine 0.91 (0.7-1.3) mg/dL Estim Creat Clear Calc 115 ml/min Estimated GFR > 60 (59 - ) Glucose 123 H (65-110) mg/dL Calcium 8.9 (8.4-10.2) mg/dL Total Bilirubin 1.8 H (0.2-1.3) mg/dL AST 48 (17-59) U/L ALT 41 (6-50) U/L Alkaline Phosphatase 65 (38-126) U/L Troponin I < 0.012 (0.000-0.034) ng/mL Total Protein 7.8 (6.3-8.2) g/dL Albumin 4.3 (3.5-5.1) g/dL Imaging Data Attestation: I personally reviewed and interpreted this imaging study as follows: My impression: Impressions Chest X-Ray 04/21/25 21:55 IMPRESSION: No acute cardiopulmonary process. Discharge Plan Discharge Clinical Impression: Migraine Patient Disposition: Home Condition: Stable Instructions: Antibiotic Form, Migraine Headache (ED) Additional Instructions: Your signs and symptoms are consistent with a migraine headache. CT scans and laboratory studies are all reassuring and appear normal. We will treat this with a combination of Excedrin which she can take up to 4 times a day in addition to Flexeril. We have prescribed these medications in addition to Flonase. Return with any emergent concerns otherwise follow-up with regular primary care provider. Patient Language: Khmer Prescriptions: New fluticasone propionate [Flonase Allergy Relief] 50 mcg/actuation spray,suspension 1 spray intranasal BID Qty: 16 0RF Rx Instructions: administer into each nostril [id number] [Excedrin Extra Strength] 250-250-65 mg tablet 1 tablet PO Q4-6H PRN (Reason: pain) Qty: 60 0RF cyclobenzaprine 5 mg tablet 5 mg PO TID PRN (Reason: muscle spasm) Qty: 30 0RF No Action potassium chloride 10 mEq tablet extended release 10 meq PO DAILY omeprazole 40 mg capsule,delayed release(DR/EC) 40 mg PO DAILY cyclobenzaprine 10 mg tablet 10 mg PO TID PRN (Reason: muscle spasm) Qty: 10 0RF alprazolam 2 mg tablet ciprofloxacin HCl [Cipro] 500 mg tablet 500 mg PO Q12H Qty: 14 0RF omeprazole 40 mg capsule,delayed release(DR/EC) 40 mg PO DAILY Qty: 30 0RF albuterol sulfate 90 mcg/actuation HFA aerosol inhaler 2 puff inhalation Q4-6H PRN (Reason: shortness of breath or wheezing) 30 Days Qty: 8.5 0RF fluticasone propionate [Flonase Allergy Relief] 50 mcg/actuation spray,suspension 1 spray intranasal BID Qty: 16 0RF Rx Instructions: administer into each nostril (DME) Aerochamber Plus Z Stat Spacer See Rx Instructions .Route Qty: 1 0RF Rx Instructions: As directed atenolol 100 mg tablet 100 mg PO DAILY Qty: 30 0RF cyclobenzaprine 10 mg tablet 10 mg PO BID PRN (Reason: muscle spasm) Qty: 14 0RF ferrous sulfate 325 mg (65 mg iron) tablet 325 mg PO DAILY Qty: 90 1RF escitalopram oxalate [Lexapro] 20 mg tablet 20 mg PO DAILY Qty: 30 5RF Follow-up/Referrals: PHYSICIAN,DRESS FITTER [Primary Care Provider] - Time of Disposition: 23:42
[2025-04-21 22:20] VITALS: BP 159/86; PULSE 57; RESP 18; TEMP 36.4; O2SAT 99
[2025-04-22] MEDS: ACETAMINOPHEN/ASPIRIN/CAFFEINE 250-250-65 MG TABLET 1 TABLET PO (00:07)
[2025-04-22] MEDS: CYCLOBENZAPRINE HCL 5 MG TABLET PO (00:08)
[2025-04-22 00:14] VITALS: BP 124/74; PULSE 61; RESP 18; TEMP 36.9; O2SAT 97
== END 2025-04-22 00:15 | disposition home or self-care (01) ==
PROVIDERS: Emergency Provider Student in an Organized Health Care Education/Training Program
DX: G43.909 Migraine, unspecified, not intractable, without status migrainosus (principal); F41.8 Other specified anxiety disorders; K21.9 Gastro-esophageal reflux disease without esophagitis; J45.909 Unspecified asthma, uncomplicated; I25.10 Atherosclerotic heart disease of native coronary artery without angina pectoris; I25.2 Old myocardial infarction; Z87.891 Personal history of nicotine dependence
CPT/HCPCS: 36415; 70450; 71045; 80053; 84484; 85025; 85610; 85730; 93005; 99284; A9270

== ENCOUNTER 2025-05-02 00:31 | Emergency (ER) | payer OTHER, SELFPAY ==
--- OUTSIDE RECORDS SUMMARY | 2025-05-02 00:34 | XMS_ITS | Patient Health Record ---
Author Organization [facility] [employer] Address [address] [facility] [address] [place] [address] Care Team Providers Care Humane Officer Name Role Phone John Mtz Unavailable [phone] Reason For Referral No Information Plan Of Treatment No Information
--- OUTSIDE RECORDS SUMMARY | 2025-05-02 00:34 | XMS_ITS | Encounter Summary ---
Author Organization [employer] Address 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
--- OUTSIDE RECORDS SUMMARY | 2025-05-02 00:34 | XMS_ITS | Encounter Summary ---
Author Organization [employer] Address [address] [place] [address] Care Team Providers Care Aircraft Inspector Name Role Phone Howard Trinidad MD Primary Care Provider Un available Encounter Details Date Type Department Care Team (Late st Contact Info) Description 04/27/2009 Emergency [facility] [place], Authorized P NO ADDRESS ON FILE Balta Sahu MD [address] [place] [address] [place] [phone] Edin Marcum MD [facility] [place] [address] Social History Tobacco Use Types Packs/Day Years Used Date Smoking Tobacco: Never Assessed Sex and Gender Information Value Date Recorded Sex Assigned at Not on file 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 FINDINGS: The heart and mediastinum are normal. There is no infiltrate, contusion, pneumothorax or pleural fluid. The visualized bony thorax is normal. IMPRESSION: Normal AP chest. . Dictated by: LEANDER GORDON 04/27/2009 07:51 Electronically signed by: LEANDER GORDON 04/27/2009 08:07 Transcribed: 04/27/2009 07:56 SMM Procedure Note Leander Gordon - 04/27/2009 [address] [place], [place] [address] Admit Date: 04/27/2009 CARLOS KELLY Sex: M Admit Prov: BALTA SAHU Date: 1970 Primary Care Prov: CMRN: [id number] [facility] [address] [place] [address] IMAGING SERVICES Ordering Prov: N/A Interpretation PORTABLE [...] CDT) MCH 27.8 27.2 - 32.6 pg [facility] MPV 9.7 9.3 - 12.4 fL [facility] HEMATOCRIT 42.4 40.0 - 48.0 % [facility] RDW-STDEV 41.9 37.1 - 48.7 fL [facility] RBC 5.29 4.50 - 5.40 M/uL [facility] MCHC 34.7 31.5 - 35.5 % [facility] MCV 80.2(L) 82.0 - 99.0 fL [facility] PLATELETS 187 140 - 350 K/uL [facility] HEMOGLOBIN 14.7 13.6 - 16.5 g/dL [facility] RDW 14.7(H) 11.5 - 14.5 % [facility] WBC 7.2 4.0 - 9.8 K/uL [facility] BASOPHILS 0 0 - 2 % [facility] BASOPHILS ABSOLUTE 0.02 0.00 - 0.20 K/uL [facility] MONOCYTES 8 3 - 13 % [facility] MONOCYTE ABSOLUTE 0.56 0.10 - 1.30 K/uL [facility] NEUTROPHILS 56 45 - 70 % [facility] NEUTROPHIL ABSOLUTE 4.00 1.90 - 7.00 K/uL [facility] EOSINOPHILS 2 0 - 7 % [facility] EOSINOPHIL ABSOLUTE 0.16 0.00 - 0.70 K/uL [facility] LYMPHOCYTES 34 16 - 45 % [facility] LYMPHOCYTE ABSOLUTE 2.43 0.70 - 4.50 K/uL [facility] Blood specimen (specimen) 04/27/2009 12:08 AM CDT 04/27/2009 12:13 AM CDT Edin Marcum MD HEMATOLOGY ORDERABLES Edited Performing Organization Address [facility] Co de Phone Number [facility] CLIA# [id number] [address] [place] [address] * CARDIAC ENZYMES (04/27/2009 12:08 AM CDT) Pathologist [facility] TROPONIN T <0.01 <=0.03 ng/mL [facility] TROPONIN T INTERP Negative [facility] Blood specimen (specimen) 04/27/2009 12:08 AM CDT 04/27/2009 12:13 AM CDT Edin Marcum MD CHEMISTRY ORDERABLES Edited Performing Organization Address [facility] de Phone Number [facility] CLIA# [id number] [address] [place] [address] * (ABNORMAL) COMPREHENSIVE METABOLIC PANEL (04/27/2009 12:08 AM CDT) CREATININE 0.92 0.67 - 1.17 mg/dL [facility] ALT 130(H) 0 - 41 U/L [facility] SODIUM 141 135 - 145 mmol/L [facility] ALKALINE PHOSPHATASE 71 40 - 129 U/L [facility] CO2 32(H) 22 - 30 mmol/L [facility] BILIRUBIN TOTAL 1.2(H) 0.2 - 1.0 mg/dL [facility] POTASSIUM 3.7 3.5 - 4.9 mmol/L [facility] TOTAL PROTEIN 8.3 6.3 - 8.6 g/dL [facility] GLUCOSE 81 65 - 99 mg/dL [facility] AST 118(H) 12 - 38 U/L [facility] BUN 10 6 - 20 mg/dL [facility] CALCIUM 9.7 8.6 - 10.2 mg/dL [facility] ALBUMIN 4.6 3.4 - 4.8 g/dL [facility] CHLORIDE 101 96 - 108 mmol/L [facility] GFR, >60 >=60 mL/min/1. 7 sq meter [facility] GFR >60 >=60 mL/min/1. 7 sq meter [facility] Comment: Modification of Diet in Renal Disease (MDRD) study formula. Estimated GFR rate interpretative information for both Americans and non- Americans is available on the [facility] at: [email or web address] Select: Lab Policies and Procedures Select: Reference Ranges - GFR Blood specimen (specimen) 04/27/2009 12:08 AM CDT 04/27/2009 12:13 AM CDT us Edin Marcum MD CHEMISTRY ORDERABLES Edited [facility] CLIA# [id number] [address] [place] [address] documented in this encounter Visit Diagnoses Not on filedocumented in this encounter Care Teams Aircraft Inspector Relationship Specialty Start Date End Date Howard Trinidad MD PCP - General Family Practice 01/25/16 01/26/16 documented as of this encounter
--- OUTSIDE RECORDS SUMMARY | 2025-05-02 00:34 | XMS_ITS | Clinical Summary ---
Author Organization [facility] Address [facility] [place] [address] Care Team Providers Care Grease Worker Name Role Phone None, Provider MD Primary [...] CDT - 02/06/2025 4:50 PM CDT Emergency [facility] [place] [address] Luna Zabala Dg, PRINTING FILM STRIPPER Abdominal Pain Discharge Disposition: Home or Self [...] 4:01 PM Narrative 02/06/2025 4:15 PM CDT [address] [address] EXAM: CT ABDOMEN - PELVIS WITHOUT CONTRAST [...] mildly enlarged prostate gland. SOFT TISSUES-OSSEOUS: Bilateral xtzuj-vx-gnfipbpc fat-containing inguinal hernias. Tiny fat-containing umbilical hernia. Osseous degenerative changes redemonstrated. Stable straightening of the visualized spine. Stable subcentimeter osseous sclerotic lesions that are too small to characterize but statistically likely probably benign entities such as bone islands. Procedure Note Lizzie Le MD - 02/06/[address] [address] EXAM: CT ABDOMEN - PELVIS WITHOUT CONTRAST [...] mildly enlarged prostate gland. SOFT TISSUES-OSSEOUS: Bilateral tvsfp-hf-tttxorpb fat-containing inguinalhernias. Tiny fat-containing umbilical hernia. Osseous [...] MD, 02/06/2025 4:01 PM us Luna Zabala PRINTING FILM STRIPPER CT Final Resul t * (ABNORMAL) COMPREHENSIVE METABOLIC PANEL (02/06/2025 2:05 PM CDT) GLUCOSE 87 70 - 99 MG/DL 02/06/2025 3:[address] [facility] BUN 7 7 - 18 MG/DL 02/06/2025 3:[address] [facility] CREATININE S/P/B 1.17 0.7 - 1.3 MG/DL 02/06/2025 3:[address] [facility] SODIUM S/P/B 139 136 - 145 MMOL/L 02/06/2025 3:[address] [facility] POTASSIUM S/P/B 3.2(L) 3.5 - 5.1 MMOL/L 02/06/2025 3:[address] [facility] CHLORIDE S/P/B 103 97 - 115 MMOL/L 02/06/2025 3:[address] [facility] CO2 27.8 21 - 32 MMOL/L 02/06/2025 3:[address] [facility] CALCIUM S/P/B 9.3 8.5 - 10.1 MG/DL 02/06/2025 3:[address] [facility] BILIRUBIN TOTAL S/P/B 2.4(H) 0.2 - 1.2 MG/DL 02/06/2025 3:[address] [facility] Comment: THIS ASSAY IS NOT RECOMMENDED FOR PATIENTS UNDERGOING TREATMENT WITH ELTROMBOPAG DUE TO THE POTENTIAL FOR FALSELY ELEVATED RESULTS. TOTAL PROTEIN S/P/B 8.6(H) 6.4 - 8.2 G/DL 02/06/2025 3:[address] [facility] ALBUMIN S/P/B 4.4 3.4 - 5.0 G/DL 02/06/2025 3:[address] [facility] AST 29 15 - 37 U/L 02/06/2025 3:[address] [facility] ALT 33 16 - 60 U/L 02/06/2025 3:[address] [facility] ALKALINE PHOSPHATASE S/P/B 75 50 - 136 U/L 02/06/2025 3:[address] [facility] ANION GAP 8.2 2 - 10 MMOL/L 02/06/2025 3:[address] [facility] BUN CREATININE RATIO 6.0 6 - 02/06/2025 3:[address] [facility] A/G RATIO 1.0 1.0 - 2.0 RATIO 02/06/2025 3:[address] [facility] GFR ESTIMATE 75(L) >90 ML/MIN/1.7 3 M2 02/06/2025 3:[address] [facility] Comment: NOTE: eGFR is not calculated for patients <18 years of age or gender unknown. This is an estimated GFR calculation using the new CKD EPI creatinine equation without race and so does not require a correction factor for race. This estimated GFR should not be used for calculating drug doses. 02/06/2025 2:05 PM CDT Ramila Phillips PA-C LABORATORY Final Resul t [facility] [address] [place] [address], * (ABNORMAL) CBC W/DIFF AUTOMATED (02/06/2025 2:05 PM CDT) WBC 5.86 4.5 - 11.0 x10'3/uL 02/06/2025 3:[address] [facility] RBC 5.90 4.70 - 6.10 x10'6/uL 02/06/2025 3:[address] [facility] HGB 12.1(L) 14.0 - 18.0 G/DL 02/06/2025 3:[address] [facility] HCT 40.5(L) 43.0 - 54.0 % 02/06/2025 3:[address] [facility] MCV 68.6(L) 80.0 - 94.0 FL 02/06/2025 3:[address] [facility] MCH 20.5(L) 27.0 - 31.0 PG 02/06/2025 3:[address] [facility] MCHC 29.9(L) 32.0 - 36.0 G/DL 02/06/2025 3:[address] [facility] RDW 18.7(H) 11.5 - 14.5 % 02/06/2025 3:[address] [facility] PLT 208 130 - 400 x10'3/uL 02/06/2025 3:[address] [facility] MPV 9.7 9.3 - 12.2 FL 02/06/2025 3:[address] [facility] DIFFERENTIAL TYPE AUTOMATED DIFFERENTIAL 02/06/2025 3:[address] [facility] NEUTROPHILS % 66.0 % 02/06/2025 3:[address] [facility] LYMPHOCYTES % 25.3 % 02/06/2025 3:[address] [facility] MONOCYTES % 5.8 % 02/06/2025 3:[address] [facility] EOSINOPHILS 2.2 % 02/06/2025 3:[address] [facility] BASOPHILS 0.7 % 02/06/2025 3:[address] [facility] IMMATURE GRANS % 0.0 % 02/07/20 3:[address] [facility] ABS. NEUTROPHILS 3.87 1.80 - 7.70 x10'3/uL 02/06/2025 3:[address] [facility] ABS. LYMPHOCYTES 1.48 1.00 - 4.80 x10'3/uL 02/06/2025 3:[address] [facility] ABS. MONOCYTES 0.34 0.30 - 0.82 x10'3/uL 02/06/2025 3:[address] [facility] ABS. EOSINOPHILS 0.13 0.04 - 0.54 x10'3/uL 02/06/2025 3:[address] [facility] ABS. BASOPHILS 0.04 0.01 - 0.08 x10'3/uL 02/06/2025 3:[address] [facility] ABS. IMMATURE GRANULOCYTES 0.00 0.00 - 0.49 x10'3/uL 02/06/2025 3:[address] [facility] RBC MORPHOLOGY SLIDE REVIEWED 2024 3:[address] [facility] POIKLO 1+ 02/06/2025 3:[address] [facility] MICRO 2+ 02/06/2025 3:[address] [facility] POLY 1+ 02/06/2025 3:[address] [facility] PLT EST. ADEQUATE 02/06/2025 3:[address] [facility] 02/06/2025 2:05 PM CDT Ramila Phillips PA-C LABORATORY Final Resul t [facility] [address] [place] [address], [place] [phone] * TROPONIN, QUANT (02/06/2025 2:05 PM CDT) TROPONIN I HIGH SENSITIVITY 25 <79 ng/L 02/06/2025 3:[address] [facility] Comment: HIGH DOSES OF BIOTIN, TROPONIN-SPECIFIC AUTOANTIBODIES, AND ANTIBODY THERAPY CONTAINING HAMA MAY INTERFERE WITH THIS TEST RESULT. CORRELATION TO CLINICAL HISTORY AND PRESENTATION RECOMMENDED. 02/06/2025 2:05 PM CDT us Ramila Phillips PA-C LABORATORY Final Resul t [facility] [address] [place] [address], [place] [phone] * LIPASE (02/06/2025 2:05 PM CDT) LIPASE 32 13 - 75 UNITS/L 02/06/2025 3:[address] [facility] 02/06/2025 2:05 PM CDT Ramila Phillips PA-C LABORATORY Final Resul t [facility] [address] [place] [address], [place] [phone] * URINALYSIS (02/06/2025 2:03 PM CDT) Pathologist [facility] SPECIMEN TYPE URINE CLEAN CATCH 02/06/2025 2:[address] [facility] COLOR (U) COLORLESS 02/06/2025 2:[address] [facility] TRANSPARENCY CLEAR 02/06/2025 2:[address] [facility] SPECIFIC GRAVITY (U) 1.003 1.001 - 1.030 02/06/2025 2:[address] [facility] U PH 6.5 5.0 - 9.0 02/06/2025 2:[address] [facility] LEUKOCYTES (U) NEGATIVE NEGATIVE 02/06/2025 2:[address] [facility] NITRITES NEGATIVE NEGATIVE 02/06/2025 2:[address] [facility] PROTEIN RANDOM (U) NEGATIVE <30 MG/DL 02/06/2025 2:[address] [facility] GLUCOSE (U) NORMAL NORMAL MG/DL 02/06/2025 2:[address] [facility] KETONES MG/DL (U) NEGATIVE NEGATIVE MG/DL 02/06/2025 2:[address] [facility] UROBILINOGEN NORMAL NORMAL MG/DL 02/06/2025 2:[address] [facility] BILIRUBIN (U) NEGATIVE NEGATIVE MG/DL 02/06/2025 2:[address] [facility] BLOOD (U) NEGATIVE NEGATIVE 02/06/2025 2:[address] [facility] URINE SPECIMEN OBTAINED BY CLEAN CATCH PROCEDURE / Unknown 02/06/2025 2:03 PM CDT us Ramila Phillips PA-C URINE ORDERABLES Final Resu lt [facility] [address] [place] [address], * ECG 12 lead (02/06/2025 1:55 PM CDT) 02/06/2025 1:55 PM CDT Narrative [facility] ([facility]) RAD - 02/06/2025 8:39 PM CDT [address] Test Date: 2025-02-06 Pat Name: CARLOS KELLY Department: 41 Room: [facility] Gender: Male Boiler Attendant: : 1970 Requested By: RAMILA PHILLIPS Order Number: [id number] Reading MD: [place] Marks Measurements Intervals [place] Rate: 61 P: -1 UT: 154 QRS: 18 QRSD: 106 T: 2 QT: 414 QTc: 418 Interpretive Statements SINUS RHYTHM Compared to ECG 06/18/2018 19:37:45 No significant changes Procedure Note North Marks MD - 02/06/2025 [facility] [place] [address] [address] [place] Test Date: 2025-02-06 Pat Name: FRANCESCOTEETEE ROBIN Department: 41 Room: [facility] Gender: Male Boiler Attendant: : 1970 Requested By: RAMILA PHILLIPS Order Number: [id number] Reading MD: North Marks Measurements Intervals [place] Rate: 61 P: -1 UT: 154 QRS: 18 QRSD: 106 T: 2 QT: 414 QTc: 418 Interpretive Statements SINUS RHYTHM Compared to ECG 06/18/2018 19:37:45 No significant changes us Ramila Phillips PA-C ECG ORDERABLES Final Resul t [facility] ([facility]) RAD from Last 3 Months Insurance [employer] Care Teams Grease Worker Relationship Specialty Start Date End Date None, Provider, PCP - General 12/31/19
--- OUTSIDE RECORDS SUMMARY | 2025-05-02 00:34 | XMS_ITS | Clinical Summary ---
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 Gender Identity Not on file Sexual Orientation Not on file Occupation Industry Job Start Date Job End Date Not on file Not on file Not on file Not on file Not on file Not on file Not on file Not on file Last Filed Vital Signs Vital Sign Reading Time Taken Comments Blood Pressure 152/94 11/18/2019 7:07 AM ADVANCED ANALYTICS ASSOCIATE Pulse 66 11/18/2019 7:07 AM ADVANCED ANALYTICS ASSOCIATE Temperature 36.7 C (98.1 F) 11/18/2019 5:34 AM ADVANCED ANALYTICS ASSOCIATE Respiratory Rate 18 11/18/2019 7:07 AM ADVANCED ANALYTICS ASSOCIATE Oxygen Saturation 98% 11/18/2019 7:07 AM ADVANCED ANALYTICS ASSOCIATE Inhaled Oxygen Concentration - - Weight 120.2 kg (265 lb) 11/18/2019 5:34 AM ADVANCED ANALYTICS ASSOCIATE Height 188 cm (6' 2) 11/18/2019 5:34 AM ADVANCED ANALYTICS ASSOCIATE Body Mass Index 34.02 11/18/2019 5:34 AM ADVANCED ANALYTICS ASSOCIATE Plan of Treatment Health Maintenance Due Date [...] % 07/02/2015 5:25 PM CDT [facility] [facility] EST. AVG GLUCOSE, A1C 140 mg/dL 07/02/2015 5:25 PM CDT [facility] Blood Venipuncture - Floor Collect / Unknown 07/02/2015 2:10 AM CDT 07/02/2015 2:11 AM CDT Narrative [facility] - 07/02/2015 5:25 PM CDT Based on the ADAG study equation. us Iwona Arteaga APN CHEMISTRY ORDERABLES Final R esult [facility] CLIA# [id number] [address] [place] [id number] from Last 3 Months or Most Recently Relevant to Health Maintenance Insurance MEDICAID Advance Directives For more information, please contact: [phone] * Full Code (Latest Code Status on File) Date Activated Date Inactivated Comments 07/02/2015 8:36 AM 07/02/2015 8:02 PM * Full Code Date Activated Date Inactivated Comments 08/28/2014 2:37 PM 08/28/2014 5:13 PM
--- OUTSIDE RECORDS SUMMARY | 2025-05-02 00:34 | XMS_ITS | Patient Health Record ---
Author Organization [facility] Address [address] [address] Care Team Providers Care Agricultural Economist Name Role Phone Charanjit Sheffield Primary Care [...] Once a day; Duration: 30 days Active Wcyhwxxv-Bhfmyhzwy-Iilnucof 0.1 % 1 application into the lower [...] complication (E11.69) Active confirmed Problem Mixed hyperlipidemia (791656682) Mixed hyperlipidemia (E78.2) Active confirmed Problem Nausea (346121932) Nausea (R11.0) Active confir med Problem Anxiety (55930951) Anxiety (F41.9) Active confi rmed Problem Gastroesophageal reflux disease without esophagitis (439532711) Gastroesophageal reflux disease without esophagitis (K21.9) Active confirmed Problem Mild intermittent asthma (358693065) Mild intermittent asthma without complication (J45.20) Active confirmed Problem Essential hypertension (43759109) Essential hypertension (I10) Active confirmed Problem Vertigo (830497744) Vertigo (R42) Active confir med Problem Neck pain (23824365) Neck pain (M54.2) Active confirmed Problem Abdominal pain (13427713) Abdominal pain (R10.9) Active confirmed Problem Depression (978382802) Depression (F32.9) Active confirmed Problem Cervical spondylosis (102853091) Cervical spondylosis (M47.812) Active confirmed Problem Pain in right arm (683928447) Right arm pain (M79.601) Active confirmed Problem Type II diabetes mellitus without complication (868281995) Type 2 diabetes mellitus without complication, without long-term current use of insulin (E11.9) Active confirmed Problem History of gastrointestinal disease (770648908) History of diverticulosis (Z87.19) Active confirmed Problem Allergic rhinitis (49727633) Allergic rhinitis due to other allergic trigger, unspecified seasonality (J30.89) Active confirmed Problem History of excision of intestinal structure (644985082) S/P cholecystectomy (Z90.49) Active confirmed Problem Recurrent major depression in remission (88200601) Recurrent major depressive disorder, in partial remission (F33.41) Active confirmed Problem Allergic rhinitis (83406371) Non-seasonal allergic rhinitis, unspecified trigger (J30.89) Active confirmed Problem Elevated liver enzymes level (733054306) Elevated LFTs (R79.89) Active confirmed Problem Pain in eye (91147321) Discomfort of left eye (H57.12) Active confirmed Plan Of Treatment No Information Insurance Providers Payer Name Payer Address Payer Phone Subscriber Number Group Number Insured Name Patient Relationship to Insured Coverage Start Date Coverage End Date [facility] [address] [id number] WADE KELLY Self - patient is the insured 9 Medical (General) History Medical History History ICD Code sinusitis Vertigo Asthma Sleep Apnea diverticulitis fatty liver 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
--- OUTSIDE RECORDS SUMMARY | 2025-05-02 00:35 | XMS_ITS | Encounter Summary ---
Author Organization [employer] Address 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
--- OUTSIDE RECORDS SUMMARY | 2025-05-02 00:35 | XMS_ITS | Encounter Summary ---
Author Organization [employer] Address 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
--- OUTSIDE RECORDS SUMMARY | 2025-05-02 00:35 | XMS_ITS | Encounter Summary ---
Author Organization [employer] Address [address] [place] [address] Care Team Providers Care Core Sucker Name Role Phone Howard Trinidad MD Primary [...] on file Legal Sex Male 4:57 AM EDUCATIONAL RESOURCE COORDINATOR Gender Identity Not on file Sexual Orientation Not on file documented as of this encounter Plan of Treatment Not on file documented as of this encounter Visit Diagnoses Diagnosis Other and unspecified special symptom or syndrome, not elsewhere classified- Primary documented in this encounter Care Teams Core Sucker Relationship Specialty Start Date End Date Howard Trinidad MD PCP - General Family Practice 01/25/16 01/26/16 documented as of this encounter
--- OUTSIDE RECORDS SUMMARY | 2025-05-02 00:35 | XMS_ITS | Encounter Summary ---
Author Organization [employer] Address [address] [place] [address] Care Team Providers Care Donor Support Technician Name Role Phone Howard Trinidad MD Primary Care Provider Un available Encounter Details Date Type Department Care Team (Late st Contact Info) Description 11/22/2007 Emergency [facility] [place], Authorized P NO ADDRESS ON FILE Arie Justice MD [address] [place] [address] [place] [address] Social History Tobacco Use Types Packs/Day Years Used Date Smoking Tobacco: Never Assessed Sex and Gender Information Value Date Recorded Sex Assigned at Not on file Legal Sex Male 4:57 AM MEDICAL INTERN Gender Identity Not on file Sexual Orientation Not on file documented as of this encounter Plan of Treatment Not on file documented as of this encounter Visit Diagnoses Not on filedocumented in this encounter Care Teams Donor Support Technician Relationship Specialty Start Date End Date Howard Trinidad MD PCP - General Family Practice 01/25/16 01/26/16 documented as of this encounter
--- OUTSIDE RECORDS SUMMARY | 2025-05-02 00:35 | XMS_ITS | Encounter Summary ---
Author Organization [employer] Address 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
--- OUTSIDE RECORDS SUMMARY | 2025-05-02 00:35 | XMS_ITS | Encounter Summary ---
Author Organization [employer] Address 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
--- OUTSIDE RECORDS SUMMARY | 2025-05-02 00:35 | XMS_ITS | Clinical Summary ---
Author Organization [facility] Address [address] [place] [address] Phone Care Team Providers Care Box Spring Frame Builder Name Role Phone Unavailable Primary [...]
--- OUTSIDE RECORDS SUMMARY | 2025-05-02 00:35 | XMS_ITS | Encounter Summary ---
Author Organization [employer] Address [address] [place] [address] Care Team Providers Care Eligibility Clerk Name Role Phone Howard Trinidad MD Primary Care Provider Un available Encounter Details Date Type Department Care Team (Late st Contact Info) Description 07/01/2006 Outpatient Historical [facility] Support Serv. ([facility]) [address] 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
--- OUTSIDE RECORDS SUMMARY | 2025-05-02 00:35 | XMS_ITS | Encounter Summary ---
Author Organization [employer] Address [address] [place] [address] Care Team Providers Care Document Control Associate Name Role Phone Howard Trinidad MD Primary Care Provider Un available Encounter Details Date Type Department Care Team (Late st Contact Info) Description 03/02/2005 Outpatient Historical [facility] Support Serv. ([facility]) [address] 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
--- OUTSIDE RECORDS SUMMARY | 2025-05-02 00:35 | XMS_ITS | Encounter Summary ---
Author Organization [employer] Address 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 Medications: [facility] review Medication reactions: epic review <<<<<<<< TRIAGE NOTE >>>>>>>> Triage Note: Retail Receiving Clerk Seema Cueva added this note on Dec [...] they will have to speak with his mobile qa tester because he is upset with the lies [...] filedocumented in this encounter Care Teams Camera Tuning Engineer Relationship Specialty Start Date End Date Howard Trinidad MD PCP - General Family Practice 01/25/16 01/26/16 documented as of this encounter
--- OUTSIDE RECORDS SUMMARY | 2025-05-02 00:35 | XMS_ITS | Encounter Summary ---
Author Organization [facility] Address 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
--- OUTSIDE RECORDS SUMMARY | 2025-05-02 00:35 | XMS_ITS | Encounter Summary ---
Author Organization [facility] Address 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
--- OUTSIDE RECORDS SUMMARY | 2025-05-02 00:35 | XMS_ITS | Encounter Summary ---
Author Organization [email or web address] Address 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
--- OUTSIDE RECORDS SUMMARY | 2025-05-02 00:35 | XMS_ITS | Encounter Summary ---
Author Organization [employer] Address 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
--- OUTSIDE RECORDS SUMMARY | 2025-05-02 00:35 | XMS_ITS | Encounter Summary ---
Author Organization [facility] [facility] Address 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
--- OUTSIDE RECORDS SUMMARY | 2025-05-02 00:35 | XMS_ITS | Encounter Summary ---
Author Organization [employer] Address 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
--- OUTSIDE RECORDS SUMMARY | 2025-05-02 00:35 | XMS_ITS | Encounter Summary ---
Author Organization [employer] [facility] Address 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 He indicated he had called PCP office [...] on filedocumented in this encounter Care Teams Political Science Instructor Relationship Specialty Start Date End Date Howard Trinidad MD PCP - General Family Practice 01/25/16 01/26/16 documented as of this encounter
--- OUTSIDE RECORDS SUMMARY | 2025-05-02 00:35 | XMS_ITS | Encounter Summary ---
Author Organization [employer] Address 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
--- OUTSIDE RECORDS SUMMARY | 2025-05-02 00:35 | XMS_ITS | Encounter Summary ---
Author Organization [facility] [employer] Address 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
--- OUTSIDE RECORDS SUMMARY | 2025-05-02 00:35 | XMS_ITS | Encounter Summary ---
Author Organization [facility] Address [address] [place] [address] Care Team Providers Care Production Administrative Assistant Name Role Phone None, Provider Primary Care Provider Alisson oliva Encounter Details Date Type Department Care Team (Late st Contact Info) Description 01/04/2020 Telephone [facility] [place] [address] Lee Ann Aguilar LCSW Social [...] documented as of this encounter Care Teams Production Administrative Assistant Relationship Specialty Start Date End Date None, Provider, PCP - General 12/31/19 documented as of this encounter
[2025-05-02 00:38] VITALS: BP 130/70; PULSE 72; RESP 20; TEMP 37.2; O2SAT 100
--- NOTE | 2025-05-02 02:19 | ED.GENADULT ---
HPI - General Adult General Chief complaint: Skin/Abscess/Foreign Body Stated complaint: rash Time Seen by Provider: 05/02/25 02:01 History of Present Illness HPI narrative: 55-year-old male presents to the emergency department for evaluation for rash to his lower legs. Patient states he had been working on redoing a porch over the last few days and noticed some itching to his wrists and ankles. Related Data Home Medications ?Medication ?Instructions ?Recorded ?Confirmed ?Last Taken ?Type potassium chloride 10 mEq 10 meq PO DAILY 06/09/23 07/26/24 08/18/24 History tablet,extended release omeprazole 40 mg capsule,delayed 40 mg PO DAILY 04/22/24 08/29/24 08/18/24 History release alprazolam 2 mg tablet mg 04/17/25 Unknown History Allergies Allergy/AdvReac Type Severity Reaction Status Date / Time Iodinated Contrast Media Allergy Severe Anaphylaxis Verified 05/02/25 00:42 metformin Allergy Severe Stopped Verified 05/02/25 00:42 Breathing Sulfa (Sulfonamide Allergy Severe Anaphylaxis Verified 05/02/25 00:42 Antibiotics) sulfamethoxazole Allergy Severe Anaphylaxis Verified 05/02/25 00:42 famotidine Allergy Intermediate Hives Verified 05/02/25 00:42 losartan Allergy Intermediate SWLLEING Verified 05/02/25 00:42 LIP AND HIVES nebivolol Allergy Intermediate LIP Verified 05/02/25 00:42 SWELLING Quinolones Allergy Intermediate Nervousness Verified 05/02/25 00:42 valsartan Allergy Intermediate HIVES/SOB Verified 05/02/25 00:42 amlodipine Allergy Mild HIVES Verified 05/02/25 00:42 azithromycin Allergy Mild Nervousness Verified 05/02/25 00:42 pantoprazole Allergy Mild Hives Verified 05/02/25 00:42 spironolactone Allergy Mild RASH AND Verified 05/02/25 00:42 ITCHING trimethoprim Allergy Mild RASH Verified 05/02/25 00:42 morphine Allergy Unknown Verified 05/02/25 00:42 cephalexin AdvReac Mild Nervousness Verified 05/02/25 00:42 flavoxate AdvReac Mild Nervousness Verified 05/02/25 00:42 levofloxacin AdvReac Mild Nervousness Verified 05/02/25 00:42 lidocaine AdvReac Mild Nervousness Verified 05/02/25 00:42 lisinopril AdvReac Mild Nervousness Verified 05/02/25 00:42 nitrofurantoin AdvReac Mild Nervousness Verified 05/02/25 00:42 oxycodone AdvReac Mild Nervousness Verified 05/02/25 00:42 paroxetine AdvReac Mild Nervousness Verified 05/02/25 00:42 Review of Systems Review of Systems: All systems reviewed & are unremarkable except as noted in HPI and below PMFSH Past Medical History Medical History Prediabetes Allergic rhinitis Chronic sinusitis Chronic post-traumatic stress disorder (PTSD) Anxiety Depression GERD (gastroesophageal reflux disease) Sleep apnea Asthma HTN (hypertension) CAD (coronary artery disease) history AR Concussion Surgical History Surgical History H/O gastric bypass Hx of cholecystectomy History of cardiac cath History of colonoscopy Family History Family History Grandparent Family history of obesity Hypertension Diabetes mellitus Mother Depression Patient's mother is in good health Family history of mental disorder Father Hypertension Patient's father is in good health Family history of alcoholism Cerebrovascular accident Sibling Patient's sister is in good health Patient's brother is in good health Father Cerebrovascular accident Alcoholism Hypertension Heart disease Mother Family history of malignant neoplasm Depression Hypertension Other Family history of cardiovascular disease Social History Social History Smoking status: Former smoker Smoking end date: 09/13/95 Alcohol intake: former Substance use: never Substance use type: opiates Lack of Transportation: No Lack of Food: Never True Current Housing: I Have Housing Concerned About Future Housing: No Difficulty Paying Gas/Electric Bills: No Difficulty Paying for Meds: No Currently Unemployed: No Education: Master's Degree or Higher Difficulty w/ Childcare or Family Care: No Living arrangements: alone Occupation/Education: occupation Gender identity (if verbalized by the patient): Male Sexual Orientation (if Verbalized by the Patient): Straight or Heterosexual Spiritual care concerns: No Exam Narrative: APPEARANCE: Well appearing, no pain, no distress, well-nourished. HEAD: normocephalic, atraumatic. EYES: PERRLA/EOMI, conjunctivae clear. NOSE: Normal no drainage EARS:TMS clear with good light reflex. THROAT: Pharynx clear, no exudate. NECK: Supple. No adenopathy, no masses. RESPIRATORY: Airway patent, respirations nonlabored. Clear to auscultation bilaterally, no rales, rhonchi, wheezing. CARDIOVASCULAR: Regular rate and rhythm without murmurs rubs or gallops. ABDOMINAL: Soft, nontender, nondistended, normal bowel sounds MUSCULOSKELETAL: Moves all extremities. Strength/ROM intact, No edema, No calf tenderness. NEURO: Alert. Cranial nerves II through XII intact. Good gait. Good coordination SKIN: Rash on bilateral ankles consistent was sugars no distribution consistent with scabies. Course Vital Signs Vital signs: Vital Signs Temperature 98.9 F 05/02/25 00:38 Pulse Rate 72 05/02/25 00:38 Respiratory Rate 20 05/02/25 00:38 Blood Pressure 130/70 05/02/25 00:38 Pulse Oximetry 100 05/02/25 00:38 Oxygen Delivery Room Air 05/02/25 00:38 Temperature 98.9 F 05/02/25 00:38 Pulse Rate 72 05/02/25 00:38 Respiratory Rate 20 05/02/25 00:38 Blood Pressure 130/70 05/02/25 00:38 Pulse Oximetry 100 05/02/25 00:38 Oxygen Delivery Room Air 05/02/25 00:38 Medical Decision Making MDM Narrative Medical decision making narrative: 55-year-old male presents emergency department for evaluation for rash to lower legs. Rash consists consistent with trigger bites, pattern is not consistent with scabies. Patient was updated on the results of the workup and treatment plan. All questions concerns were addressed. Differential Diagnosis Differential Diagnosis: Cellulitis, dermatitis, bug bite, allergic reaction, scabies Vital Signs Vital Signs: Vital Signs Temperature 98.9 F 05/02/25 00:38 Pulse Rate 72 05/02/25 00:38 Respiratory Rate 20 05/02/25 00:38 Blood Pressure 130/70 05/02/25 00:38 Pulse Oximetry 100 05/02/25 00:38 Oxygen Delivery Room Air 05/02/25 00:38 Temperature 98.9 F 05/02/25 00:38 Pulse Rate 72 05/02/25 00:38 Respiratory Rate 20 05/02/25 00:38 Blood Pressure 130/70 05/02/25 00:38 Pulse Oximetry 100 05/02/25 00:38 Oxygen Delivery Room Air 05/02/25 00:38 Discharge Plan Discharge Clinical Impression: Chigger bites, Jock itch Patient Disposition: Home Condition: Stable Instructions: Antibiotic Form, Chigger Bite (ED) Additional Instructions: Topical hydrocortisone cream as needed. P.o. Benadryl as needed for itching. Have close follow-up with your primary care physician. Patient Language: Irish Prescriptions: New nystatin 100,000 unit/gram powder 1 applic topical BID Qty: 30 0RF atenolol 100 mg tablet 100 mg PO DAILY 14 Days Qty: 14 0RF No Action potassium chloride 10 mEq tablet extended release 10 meq PO DAILY omeprazole 40 mg capsule,delayed release(DR/EC) 40 mg PO DAILY cyclobenzaprine 10 mg tablet 10 mg PO TID PRN (Reason: muscle spasm) Qty: 10 0RF alprazolam 2 mg tablet ciprofloxacin HCl [Cipro] 500 mg tablet 500 mg PO Q12H Qty: 14 0RF omeprazole 40 mg capsule,delayed release(DR/EC) 40 mg PO DAILY Qty: 30 0RF albuterol sulfate 90 mcg/actuation HFA aerosol inhaler 2 puff inhalation Q4-6H PRN (Reason: shortness of breath or wheezing) 30 Days Qty: 8.5 0RF fluticasone propionate [Flonase Allergy Relief] 50 mcg/actuation spray,suspension 1 spray intranasal BID Qty: 16 0RF Rx Instructions: administer into each nostril (DME) Aerochamber Plus Z Stat Spacer See Rx Instructions .Route Qty: 1 0RF Rx Instructions: As directed atenolol 100 mg tablet 100 mg PO DAILY Qty: 30 0RF cyclobenzaprine 10 mg tablet 10 mg PO BID PRN (Reason: muscle spasm) Qty: 14 0RF fluticasone propionate [Flonase Allergy Relief] 50 mcg/actuation spray,suspension 1 spray intranasal BID Qty: 16 0RF Rx Instructions: administer into each nostril [id number] [Excedrin Extra Strength] 250-250-65 mg tablet 1 tablet PO Q4-6H PRN (Reason: pain) Qty: 60 0RF cyclobenzaprine 5 mg tablet 5 mg PO TID PRN (Reason: muscle spasm) Qty: 30 0RF ferrous sulfate 325 mg (65 mg iron) tablet 325 mg PO DAILY Qty: 90 1RF escitalopram oxalate [Lexapro] 20 mg tablet 20 mg PO DAILY Qty: 30 5RF Follow-up/Referrals: PHYSICIAN,ASSISTIVE TECHNOLOGY SPECIALIST [Primary Care Provider, Internal Medicine]
== END 2025-05-02 02:44 | disposition home or self-care (01) ==
PROVIDERS: Emergency Provider Emergency Medicine
DX: B88.0 Other acariasis (principal); B35.6 Tinea cruris; I10 Essential (primary) hypertension; I25.10 Atherosclerotic heart disease of native coronary artery without angina pectoris; I25.2 Old myocardial infarction; J32.9 Chronic sinusitis, unspecified; J45.909 Unspecified asthma, uncomplicated; R73.03 Prediabetes; K21.9 Gastro-esophageal reflux disease without esophagitis; G47.30 Sleep apnea, unspecified; F43.10 Post-traumatic stress disorder, unspecified; F41.9 Anxiety disorder, unspecified; F32.A Depression, unspecified; Z98.84 Bariatric surgery status; Z87.891 Personal history of nicotine dependence; Z90.49 Acquired absence of other specified parts of digestive tract; Z79.899 Other long term (current) drug therapy
CPT/HCPCS: 99283

== ENCOUNTER 2025-05-09 17:36 | Emergency (ER) | payer OTHER, SELFPAY ==
--- NOTE | ~2025-05-09 | CT_ITS ---
EXAMINATION: CT BRAIN W/O DATE: 05/09/2025 22:41 INDICATION: Tingling in arms and legs TECHNIQUE: Computed tomography (CT) of the head was performed without intravenous contrast. The dose-length product was 756.67 mGy-cm. Automated exposure control and iterative reconstruction technique were employed. COMPARISON: CT dated 04/21/2025 FINDINGS: Normal brain parenchymal volume for age. Normal valdez-white differentiation. No acute intracranial hemorrhage, infarction, mass or mass effect. No ventriculomegaly or midline shift. Midline sagittal images demonstrate a normal corpus callosum, craniovertebral junction and sella turcica. Basilar cisterns are patent. Paranasal sinuses and mastoids are pneumatized. No depressed skull fractures. IMPRESSION: 1. No acute intracranial abnormality. Reviewed, dictated and finalized at location O.
[2025-05-09 17:42] VITALS: PULSE 102; RESP 18; TEMP 36.4; O2SAT 100
--- NOTE | 2025-05-09 19:04 | ECG_ITS ---
Test Date: 2025-05-09 19:04:55 Measurements Intervals [place] Rate: 60 P: 3 NC: 168 QRS: 21 QRSD: 102 T: 0 QT: 420 QTc: 420 Interpretive Statements SINUS RHYTHM INCOMPLETE RIGHT BUNDLE BRANCH BLOCK BORDERLINE ST-T WAVE ABNORMALITY- INFERIOR LEADS BASELINE ARTIFACT- I, III, AVR, AVL, AVF, V2, V4-V6 BORDERLINE ECG Compared to ECG 04/21/2025 21:25:11 NO SIGNIFICANT CHANGE Electronically Signed On 05-10-2025 09:02:29 CDT by Yonathan Ross D.O.
[2025-05-09 22:24] LABS: Hematocrit 38.3 % (42.0-52.0); Hemoglobin 11.7 g/dL (14.0-18.0); Immature Granulocyte Percent A 0.2 % (0-0.5); Lymphocytes Absolute Auto 1.02 K/mm3 (0.9-3.2); Mean Corpuscular HGB Conc 30.5 g/dl (32-36); Mean Corpuscular Hemoglobin 21.2 pg (26-34); Mean Corpuscular Volume 69.3 fl (80-100); Nucleated Red Blood Cells Absolute Auto 0.000 K/mm3 (0.0-0.012); Nucleated Red Blood Cells Perc 0.0 % (0.0-0.2); Platelet Count Result 185 k/mm3 (150-375); Red Blood Count 5.53 M/mm3 (4.6-6.20); White Blood Count 6.3 K/mm3 (4.5-10.0)
--- NOTE | 2025-05-09 22:25 | ED.CHESTPAIN ---
HPI - Chest Pain General Chief Complaint: Extremity Problem,Nontraumatic <Liss Jones APRN - Last Filed: 05/10/25 00:42> Stated Complaint: bilateral UE pain <Liss Jones APRN - Last Filed: 05/10/25 00:42> Time Seen by Provider: 05/09/25 19:55 <Liss Jones APRN - Last Filed: 05/10/25 00:42> History of Present Illness HPI narrative: Patient is a 55-year-old male who presents to the ER with complaints of bilateral forearm and hand cramping, along with bilateral thigh cramping. He reports yesterday he was having back pain so he took 5 mg of Flexeril. Patient reports feeling out of it after taking the Flexeril. He also endorses feeling dizzy. Patient reports this morning he woke up with symptoms of cramping. He endorses he has a history of anxiety, hypokalemia and colon cancer. Patient endorses mild chest pain. He denies any recent fevers, one-sided numbness/tingling/weakness, shortness of breath, or lower extremity swelling. <Liss Jones APRN - Last Filed: 05/10/25 00:42> Related Data Home Medications: Home Medications ?Medication ?Instructions ?Recorded ?Confirmed ?Last Taken ?Type potassium chloride 10 mEq 10 meq PO DAILY 06/09/23 07/26/24 08/18/24 History tablet,extended release omeprazole 40 mg capsule,delayed 40 mg PO DAILY 04/22/24 08/29/24 08/18/24 History release alprazolam 2 mg tablet mg 04/17/25 Unknown History <Liss Jones APRN - Last Filed: 05/10/25 00:42> Allergies/Adverse Reactions: Allergies Allergy/AdvReac Type Severity Reaction Status Date / Time Iodinated Contrast Media Allergy Severe Anaphylaxis Verified 05/09/25 17:39 metformin Allergy Severe Stopped Verified 05/09/25 17:39 Breathing Sulfa (Sulfonamide Allergy Severe Anaphylaxis Verified 05/09/25 17:39 Antibiotics) sulfamethoxazole Allergy Severe Anaphylaxis Verified 05/09/25 17:39 famotidine Allergy Intermediate Hives Verified 05/09/25 17:39 losartan Allergy Intermediate SWLLEING Verified 05/09/25 17:39 LIP AND HIVES nebivolol Allergy Intermediate LIP Verified 05/09/25 17:39 SWELLING Quinolones Allergy Intermediate Nervousness Verified 05/09/25 17:39 valsartan Allergy Intermediate HIVES/SOB Verified 05/09/25 17:39 amlodipine Allergy Mild HIVES Verified 05/09/25 17:39 azithromycin Allergy Mild Nervousness Verified 05/09/25 17:39 pantoprazole Allergy Mild Hives Verified 05/09/25 17:39 spironolactone Allergy Mild RASH AND Verified 05/09/25 17:39 ITCHING trimethoprim Allergy Mild RASH Verified 05/09/25 17:39 morphine Allergy Unknown Verified 05/09/25 17:39 cephalexin AdvReac Mild Nervousness Verified 05/09/25 17:39 flavoxate AdvReac Mild Nervousness Verified 05/09/25 17:39 levofloxacin AdvReac Mild Nervousness Verified 05/09/25 17:39 lidocaine AdvReac Mild Nervousness Verified 05/09/25 17:39 lisinopril AdvReac Mild Nervousness Verified 05/09/25 17:39 nitrofurantoin AdvReac Mild Nervousness Verified 05/09/25 17:39 oxycodone AdvReac Mild Nervousness Verified 05/09/25 17:39 paroxetine AdvReac Mild Nervousness Verified 05/09/25 17:39 <Liss Jones APRN - Last Filed: 05/10/25 00:42> Review of Systems Review of Systems: All systems reviewed & are unremarkable except as noted in HPI and below <Liss Jones APRN - Last Filed: 05/10/25 00:42> PMFSH Past Medical History Medical History: Medical History Prediabetes Allergic rhinitis Chronic sinusitis Chronic post-traumatic stress disorder (PTSD) Anxiety Depression GERD (gastroesophageal reflux disease) Sleep apnea Asthma HTN (hypertension) CAD (coronary artery disease) history [place] Concussion <Liss Jones APRN - Last Filed: 05/10/25 00:42> Surgical History Surgical History: Surgical History H/O gastric bypass Hx of cholecystectomy History of cardiac cath History of colonoscopy <Liss Jones APRN - Last Filed: 05/10/25 00:42> Family History Family History: Family History Grandparent Family history of obesity Hypertension Diabetes mellitus Mother Depression Patient's mother is in good health Family history of mental disorder Father Hypertension Patient's father is in good health Family history of alcoholism Cerebrovascular accident Sibling Patient's sister is in good health Patient's brother is in good health Father Cerebrovascular accident Alcoholism Hypertension Heart disease Mother Family history of malignant neoplasm Depression Hypertension Other Family history of cardiovascular disease <Liss Jones APRN - Last Filed: 05/10/25 00:42> Social History Social History: Social History Smoking status: Former smoker Smoking end date: 09/13/95 Alcohol intake: former Substance use: never Substance use type: opiates Lack of Transportation: No Lack of Food: Never True Current Housing: I Have Housing Concerned About Future Housing: No Difficulty Paying Gas/Electric Bills: No Difficulty Paying for Meds: No Currently Unemployed: No Education: Master's Degree or Higher Difficulty w/ Childcare or Family Care: No Living arrangements: alone Occupation/Education: occupation Gender identity (if verbalized by the patient): Male Sexual Orientation (if Verbalized by the Patient): Straight or Heterosexual Spiritual care concerns: No <Liss Jones APRN - Last Filed: 05/10/25 00:42> Exam Narrative: GENERAL: Well appearing, obese, non-toxic, in no acute distress. HEAD: Normocephalic, atraumatic. NECK: Supple. No adenopathy, no masses. RESPIRATORY: Airway patent, respirations nonlabored. Clear to auscultation bilaterally, no rales, rhonchi, wheezing. CARDIOVASCULAR: Regular rate and rhythm without murmurs, rubs, or gallops. Peripheral pulses 2+ and equal bilaterally. ABDOMINAL: Soft, nontender, nondistended, no hepatosplenomegaly. Normoactive BS. MUSCULOSKELETAL: Moves all extremities. Strength/ROM intact without gross deformities. SKIN: Warm, dry, normal color. No rashes. NEURO: A&O X3. Speech clear. Cranial nerves II-XII intact. No ataxic movements. PSYCHIATRIC: Appropriate mood and affect. Normal interaction. <Liss Jones APRN - Last Filed: 05/10/25 00:42> Course RENTAL COUNTER CLERK/PA Physician Supervision This visit was performed by both a physician and an APC. For this patient encounter, I reviewed the RENTAL COUNTER CLERK or PA documentation, treatment plan, and medical decision making and had [id number] time with this patient. I performed all aspects of the MDM as documented. <Adolfo Rosales MD - Last Filed: 05/10/25 01:17> Vital Signs Vital signs: Vital Signs Temperature 97.6 F 05/09/25 17:42 Pulse Rate 102 H 05/09/25 17:42 Respiratory Rate 18 05/09/25 17:42 Pulse Oximetry 100 05/09/25 17:42 Temperature 97.8 F 05/10/25 01:10 Pulse Rate 71 05/10/25 01:10 Respiratory Rate 18 05/10/25 01:10 Blood Pressure 110/77 05/10/25 01:10 Pulse Oximetry 98 05/10/25 01:10 <Liss Jones APRN - Last Filed: 05/10/25 00:42> Vital Signs Temperature 97.6 F 05/09/25 17:42 Pulse Rate 102 H 05/09/25 17:42 Respiratory Rate 18 05/09/25 17:42 Pulse Oximetry 100 05/09/25 17:42 Temperature 97.8 F 05/10/25 01:10 Pulse Rate 71 05/10/25 01:10 Respiratory Rate 18 05/10/25 01:10 Blood Pressure 110/77 05/10/25 01:10 Pulse Oximetry 98 05/10/25 01:10 <Adolfo Rosales MD - Last Filed: 05/10/25 01:17> MDM - Chest Pain MDM Narrative Medical decision making narrative: Patient is a 55-year-old male who presents to the ER with complaints of bilateral forearm and hand cramping, along with bilateral thigh cramping. He reports yesterday he was having back pain so he took 5 mg of Flexeril. Patient reports feeling out of it after taking the Flexeril. He also endorses feeling dizzy. Patient reports this morning he woke up with symptoms of cramping. He endorses he has a history of anxiety, hypokalemia and colon cancer. Patient endorses mild chest pain. He denies any recent fevers, one-sided numbness/tingling/weakness, shortness of breath, or lower extremity swelling. Labs Ordered: CBC, CMP, troponin Imaging Ordered: CT head Medications Ordered: Potassium p.o. Results: Patient's CBC results were comparable to previous results, with a hemoglobin of 11.7 hematocrit of 38.3%. His chemistry indicates a sodium of 3.2, carbon dioxide of 32, and bilirubin of 1.4. Patient head CT scan indicates no acute abnormalities. Diagnosis: Numbness and tingling of extremities, atypical chest pain, anxiety, hypokalemia Risks: HEART score: low risk HEART Score for Major Cardiac Events from [email or web address] on 05/09/2025 All calculations should be rechecked by clinician prior to use RESULT SUMMARY: 2 points Low Score (0-3 points) Risk of MACE of 0.9-1.7%. INPUTS: History ?> 0 = Slightly suspicious EKG ?> 0 = Normal Age ?> 1 = 45-64 Risk factors ?> 1 = 1-2 risk factors Initial troponin ?> 0 = <Normal limit Patient Education/Shared MDM: Results of lab work and imaging shared with patient. He was offered Prednisone to see if this helps relieve his discomfort. Pt will be given potassium and steroids here in the ER and discharged home. Patient is requesting a 2nd opinion so Dr. Rosales went in to evaluate patient and is in agreement with pt's assessment and diagnosis. He reports he feels good about his test results and is in agreement to go home. Patient strongly advised to maintain hydration status upon discharge and follow-up with his PCP and Psychiatry as soon as possible. He will be discharged home with no new prescriptions. Strict return precautions provided. Patient verbalized understanding and is in agreement with plan. Vital signs stable at time of discharge. All questions answered. <Liss Jones, PROMOTIONAL ADVERTISING ASSISTANT - Last Filed: 05/10/25 00:42> Differential Diagnosis Differential diagnosis: Likely atypical chest pain, costochondritis, chest pain and other (Numbness tingling in extremities, anxiety) <Liss Jones APRN - Last Filed: 05/10/25 00:42> Lab Data Attestation: I reviewed the patient's lab results. <Liss Jones APRN - Last Filed: 05/10/25 00:42> Result diagrams: 05/09/25 22:17 05/09/25 22:17 <Liss Jones APRN - Last Filed: 05/10/25 00:42> Labs: Lab Results 05/09/25 Range/Units 22:17 WBC 6.3 (4.5-10.0) K/mm3 RBC 5.53 (4.6-6.20) M/mm3 Hgb 11.7 L (14.0-18.0) g/dL Hct 38.3 L (42.0-52.0) % MCV 69.3 L (80-100) fl MCH 21.2 L (26-34) pg MCHC 30.5 L (32-36) g/dl RDW 18.7 H (11.5-14.5) % Plt Count 185 (150-375) k/mm3 MPV 9.6 (7.4-10.4) fl Immature Gran % (Auto) 0.2 (0-0.5) % Neut % (Auto) 77.1 H (45.5-73.1) % Lymph % (Auto) 16.3 L (18.3-44.2) % [place] % (Auto) 4.8 (2.6-8.5) % Eos % (Auto) 1.1 (0-4.4) % Baso % (Auto) 0.5 (0.2-1.2) % Lymph # (Auto) 1.02 (0.9-3.2) K/mm3 [place] # (Auto) 0.3 (0.1-0.6) K/mm3 Eos # (Auto) 0.1 (0-0.3) K/mm3 Baso # (Auto) 0.0 (0.0-0.1) K/mm3 Abs Immat Gran (auto) 0.01 (0.00-0.031) K/mm3 Absolute Neuts (auto) 4.8 (1.3-6.7) K/mm3 Absolute Nucleated RBC 0.000 (0.0-0.012) K/mm3 Band Neutrophils % Not Reportable Nucleated RBC % 0.0 (0.0-0.2) % Platelet Estimate Adequate (Adequate) Anisocytosis 1+ Microcytosis 1+ (NORMAL) Schistocytes None seen Sodium 140 (137-145) mmol/L Potassium 3.2 L (3.4-5.0) mmol/L Chloride 99 (98-107) mmol/L Carbon Dioxide 32 H (22-30) mmol/L Anion Gap 9 (4-12) mmol/L BUN 14 (9-20) mg/dL Creatinine 0.98 (0.7-1.3) mg/dL Estim Creat Clear Calc 101 ml/min Estimated GFR > 60 (59 - ) Glucose 100 (65-110) mg/dL Calcium 8.5 (8.4-10.2) mg/dL Total Bilirubin 1.4 H (0.2-1.3) mg/dL AST 48 (17-59) U/L ALT 37 (6-50) U/L Alkaline Phosphatase 58 (38-126) U/L Troponin I < 0.012 (0.000-0.034) ng/mL Total Protein 8.2 (6.3-8.2) g/dL Albumin 4.5 (3.5-5.1) g/dL <Liss Jones, PROMOTIONAL ADVERTISING ASSISTANT - Last Filed: 05/10/25 00:42> Lab Results 05/09/25 Range/Units 22:17 WBC 6.3 (4.5-10.0) K/mm3 RBC 5.53 (4.6-6.20) M/mm3 Hgb 11.7 L (14.0-18.0) g/dL Hct 38.3 L (42.0-52.0) % MCV 69.3 L (80-100) fl MCH 21.2 L (26-34) pg MCHC 30.5 L (32-36) g/dl RDW 18.7 H (11.5-14.5) % Plt Count 185 (150-375) k/mm3 MPV 9.6 (7.4-10.4) fl Immature Gran % (Auto) 0.2 (0-0.5) % Neut % (Auto) 77.1 H (45.5-73.1) % Lymph % (Auto) 16.3 L (18.3-44.2) % [place] % (Auto) 4.8 (2.6-8.5) % Eos % (Auto) 1.1 (0-4.4) % Baso % (Auto) 0.5 (0.2-1.2) % Lymph # (Auto) 1.02 (0.9-3.2) K/mm3 [place] # (Auto) 0.3 (0.1-0.6) K/mm3 Eos # (Auto) 0.1 (0-0.3) K/mm3 Baso # (Auto) 0.0 (0.0-0.1) K/mm3 Abs Immat Gran (auto) 0.01 (0.00-0.031) K/mm3 Absolute Neuts (auto) 4.8 (1.3-6.7) K/mm3 Absolute Nucleated RBC 0.000 (0.0-0.012) K/mm3 Band Neutrophils % Not Reportable Nucleated RBC % 0.0 (0.0-0.2) % Platelet Estimate Adequate (Adequate) Anisocytosis 1+ Microcytosis 1+ (NORMAL) Schistocytes None seen Sodium 140 (137-145) mmol/L Potassium 3.2 L (3.4-5.0) mmol/L Chloride 99 (98-107) mmol/L Carbon Dioxide 32 H (22-30) mmol/L Anion Gap 9 (4-12) mmol/L BUN 14 (9-20) mg/dL Creatinine 0.98 (0.7-1.3) mg/dL Estim Creat Clear Calc 101 ml/min Estimated GFR > 60 (59 - ) Glucose 100 (65-110) mg/dL Calcium 8.5 (8.4-10.2) mg/dL Total Bilirubin 1.4 H (0.2-1.3) mg/dL AST 48 (17-59) U/L ALT 37 (6-50) U/L Alkaline Phosphatase 58 (38-126) U/L Troponin I < 0.012 (0.000-0.034) ng/mL Total Protein 8.2 (6.3-8.2) g/dL Albumin 4.5 (3.5-5.1) g/dL <Adolfo Rosales MD - Last Filed: 05/10/25 01:17> Imaging Data Attestation: I personally reviewed and interpreted this imaging study as follows: <Liss Jones APRN - Last Filed: 05/10/25 00:42> Radiologist's impression: Patient's head CT indicates no acute abnormalities. <Liss Jones APRN - Last Filed: 05/10/25 00:42> Discharge Plan Discharge Clinical Impression: Atypical chest pain, Numbness and tingling in both hands, Numbness and tingling of both legs, Chronic hypokalemia <Liss Jones APRN - Last Filed: 05/10/25 00:42> Patient Disposition: Home <Liss Jones APRN - Last Filed: 05/10/25 00:42> Condition: Stable <Liss Jones APRN - Last Filed: 05/10/25 00:42> Instructions: Antibiotic Form, Noncardiac Chest Pain (ED) <Liss Jones APRN - Last Filed: 05/10/25 00:42> Additional Instructions: Please return to the ER with any worsening symptoms. Follow-up with primary care provider and Psychiatry as soon as possible. Take all medications as prescribed, including regularly scheduled medications. <Liss Jones APRN - Last Filed: 05/10/25 00:42> Patient Language: Luxembourgish <Liss Jones APRN - Last Filed: 05/10/25 00:42> Prescriptions: New omeprazole 40 mg capsule,delayed release(DR/EC) 40 mg PO BID Qty: 14 0RF No Action potassium chloride 10 mEq tablet extended release 10 meq PO DAILY omeprazole 40 mg capsule,delayed release(DR/EC) 40 mg PO DAILY cyclobenzaprine 10 mg tablet 10 mg PO TID PRN (Reason: muscle spasm) Qty: 10 0RF alprazolam 2 mg tablet ciprofloxacin HCl [Cipro] 500 mg tablet 500 mg PO Q12H Qty: 14 0RF omeprazole 40 mg capsule,delayed release(DR/EC) 40 mg PO DAILY Qty: 30 0RF albuterol sulfate 90 mcg/actuation HFA aerosol inhaler 2 puff inhalation Q4-6H PRN (Reason: shortness of breath or wheezing) 30 Days Qty: 8.5 0RF fluticasone propionate [Flonase Allergy Relief] 50 mcg/actuation spray,suspension 1 spray intranasal BID Qty: 16 0RF Rx Instructions: administer into each nostril (DME) Aerochamber Plus Z Stat Spacer See Rx Instructions .Route Qty: 1 0RF Rx Instructions: As directed atenolol 100 mg tablet 100 mg PO DAILY Qty: 30 0RF cyclobenzaprine 10 mg tablet 10 mg PO BID PRN (Reason: muscle spasm) Qty: 14 0RF nystatin 100,000 unit/gram powder 1 applic topical BID Qty: 30 0RF atenolol 100 mg tablet 100 mg PO DAILY 14 Days Qty: 14 0RF fluticasone propionate [Flonase Allergy Relief] 50 mcg/actuation spray,suspension 1 spray intranasal BID Qty: 16 0RF Rx Instructions: administer into each nostril [id number] [Excedrin Extra Strength] 250-250-65 mg tablet 1 tablet PO Q4-6H PRN (Reason: pain) Qty: 60 0RF cyclobenzaprine 5 mg tablet 5 mg PO TID PRN (Reason: muscle spasm) Qty: 30 0RF ferrous sulfate 325 mg (65 mg iron) tablet 325 mg PO DAILY Qty: 90 1RF escitalopram oxalate [Lexapro] 20 mg tablet 20 mg PO DAILY Qty: 30 5RF <Liss Jones APRN - Last Filed: 05/10/25 00:42> Follow-up/Referrals: Joe Freitas MD [Physician, Neurology] Referral Note: neurology PHYSICIAN,GLOBAL SOURCING MANAGER [Primary Care Provider, Internal Medicine] Halina Oviedo DO [Physician, Family Practice] Referral Note: primary care provider <Liss Jones APRN - Last Filed: 05/10/25 00:42> Time of Disposition: 00:39 <Liss Jones APRN - Last Filed: 05/10/25 00:42> 00:39 <Adolfo Rosales MD - Last Filed: 05/10/25 01:17>
[2025-05-09 22:41] LABS: Alanine Aminotransferase 37 U/L (6-50); Albumin Level 4.5 g/dL (3.5-5.1); Alkaline Phosphatase 58 U/L (38-126); Anion Gap 9 mmol/L (4-12); Aspartate Amino Transferase 48 U/L (17-59); Bilirubin,Total 1.4 mg/dL (0.2-1.3); Blood Urea Nitrogen 14 mg/dL (9-20); Calcium 8.5 mg/dL (8.4-10.2); Carbon Dioxide 32 mmol/L (22-30); Chloride 99 mmol/L (98-107); Estimated CRCL calculation 101 ml/min; Estimated Glomerular Filt Rate > 60; Glucose 100 mg/dL (65-110); Potassium 3.2 mmol/L (3.4-5.0); Sodium 140 mmol/L (137-145); Total Protein 8.2 g/dL (6.3-8.2)
[2025-05-09 22:47] LABS: Anisocytosis 1+; Microcytosis 1+ (NORMAL); Schistocytes None Seen
[2025-05-09 22:48] LABS: Troponin I < 0.012 ng/mL (0.000-0.034)
[2025-05-10] MEDS: POTASSIUM CHLORIDE 20 MEQ ER TABLET 40 MEQ PO (00:56)
[2025-05-10 01:10] VITALS: BP 110/77; PULSE 71; RESP 18; TEMP 36.6; O2SAT 98
== END 2025-05-10 01:11 | disposition home or self-care (01) ==
PROVIDERS: Emergency Provider Registered Nurse
DX: R07.89 Other chest pain (principal); R20.2 Paresthesia of skin; E87.6 Hypokalemia; F41.9 Anxiety disorder, unspecified; F32.A Depression, unspecified; K21.9 Gastro-esophageal reflux disease without esophagitis; G47.30 Sleep apnea, unspecified; J45.909 Unspecified asthma, uncomplicated; I10 Essential (primary) hypertension; I25.10 Atherosclerotic heart disease of native coronary artery without angina pectoris; I25.2 Old myocardial infarction; I45.10 Unspecified right bundle-branch block
CPT/HCPCS: 36415; 70450; 80053; 84484; 85025; 93005; 99284; A9270; J7512

== ENCOUNTER 2025-05-26 05:48 | Emergency (ER) | payer OTHER, SELFPAY ==
[2025-05-26 05:53] VITALS: BP 171/103; PULSE 65; RESP 20; TEMP 36.4; O2SAT 100
--- NOTE | 2025-05-26 06:46 | ED.ANXIETY ---
HPI - Anxiety General Chief Complaint: Anxiety Stated Complaint: anxiety Time Seen by Provider: 05/26/25 06:45 Related Data Home Medications ?Medication ?Instructions ?Recorded ?Confirmed ?Last Taken ?Type potassium chloride 10 mEq 10 meq PO DAILY 06/09/23 07/26/24 08/18/24 History tablet,extended release omeprazole 40 mg capsule,delayed 40 mg PO DAILY 04/22/24 08/29/24 08/18/24 History release alprazolam 2 mg tablet mg 04/17/25 Unknown History Allergies Allergy/AdvReac Type Severity Reaction Status Date / Time Iodinated Contrast Media Allergy Severe Anaphylaxis Verified 05/09/25 17:39 metformin Allergy Severe Stopped Verified 05/09/25 17:39 Breathing Sulfa (Sulfonamide Allergy Severe Anaphylaxis Verified 05/09/25 17:39 Antibiotics) sulfamethoxazole Allergy Severe Anaphylaxis Verified 05/09/25 17:39 famotidine Allergy Intermediate Hives Verified 05/09/25 17:39 losartan Allergy Intermediate SWLLEING Verified 05/09/25 17:39 LIP AND HIVES nebivolol Allergy Intermediate LIP Verified 05/09/25 17:39 SWELLING Quinolones Allergy Intermediate Nervousness Verified 05/09/25 17:39 valsartan Allergy Intermediate HIVES/SOB Verified 05/09/25 17:39 amlodipine Allergy Mild HIVES Verified 05/09/25 17:39 azithromycin Allergy Mild Nervousness Verified 05/09/25 17:39 pantoprazole Allergy Mild Hives Verified 05/09/25 17:39 spironolactone Allergy Mild RASH AND Verified 05/09/25 17:39 ITCHING trimethoprim Allergy Mild RASH Verified 05/09/25 17:39 morphine Allergy Unknown Verified 05/09/25 17:39 cephalexin AdvReac Mild Nervousness Verified 05/09/25 17:39 flavoxate AdvReac Mild Nervousness Verified 05/09/25 17:39 levofloxacin AdvReac Mild Nervousness Verified 05/09/25 17:39 lidocaine AdvReac Mild Nervousness Verified 05/09/25 17:39 lisinopril AdvReac Mild Nervousness Verified 05/09/25 17:39 nitrofurantoin AdvReac Mild Nervousness Verified 05/09/25 17:39 oxycodone AdvReac Mild Nervousness Verified 05/09/25 17:39 paroxetine AdvReac Mild Nervousness Verified 05/09/25 17:39 PMFSH Past Medical History Medical History Prediabetes Allergic rhinitis Chronic sinusitis Chronic post-traumatic stress disorder (PTSD) Anxiety Depression GERD (gastroesophageal reflux disease) Sleep apnea Asthma HTN (hypertension) CAD (coronary artery disease) history [place] Concussion Surgical History Surgical History H/O gastric bypass Hx of cholecystectomy History of cardiac cath History of colonoscopy Family History Family History Grandparent Family history of obesity Hypertension Diabetes mellitus Mother Depression Patient's mother is in good health Family history of mental disorder Father Hypertension Patient's father is in good health Family history of alcoholism Cerebrovascular accident Sibling Patient's sister is in good health Patient's brother is in good health Father Cerebrovascular accident Alcoholism Hypertension Heart disease Mother Family history of malignant neoplasm Depression Hypertension Other Family history of cardiovascular disease Social History Social History Smoking status: Former smoker Smoking end date: 09/13/95 Alcohol intake: former Substance use: never Substance use type: opiates Lack of Transportation: No Lack of Food: Never True Current Housing: I Have Housing Concerned About Future Housing: No Difficulty Paying Gas/Electric Bills: No Difficulty Paying for Meds: No Currently Unemployed: No Education: Master's Degree or Higher Difficulty w/ Childcare or Family Care: No Living arrangements: alone Occupation/Education: occupation Gender identity (if verbalized by the patient): Male Sexual Orientation (if Verbalized by the Patient): Straight or Heterosexual Spiritual care concerns: No Course Vital Signs Vital signs: Vital Signs Temperature 97.5 F L 05/26/25 05:53 Pulse Rate 65 05/26/25 05:53 Respiratory Rate 20 05/26/25 05:53 Blood Pressure 171/103 H 05/26/25 05:53 Pulse Oximetry 100 05/26/25 05:53 Oxygen Delivery Room Air 05/26/25 05:53 Temperature 97.5 F L 05/26/25 05:53 Pulse Rate 65 05/26/25 05:53 Respiratory Rate 20 05/26/25 05:53 Blood Pressure 171/103 H 05/26/25 05:53 Pulse Oximetry 100 05/26/25 05:53 Oxygen Delivery Room Air 05/26/25 05:53 Discharge Plan Discharge Clinical Impression: Acute anxiety Patient Disposition: Home Condition: Improved Instructions: Antibiotic Form, Anxiety (ED) Additional Instructions: Please follow-up with the family doctor/psychiatrist within the next 3-5 days. Return to the ED if any new or worsening symptoms develop. You also provided with a referral to 1 of our primary care physicians if you are and able to get in with your doctors in a reasonable time. Call today to set up a follow-up appointment. Patient Language: New Zealander Prescriptions: No Action potassium chloride 10 mEq tablet extended release 10 meq PO DAILY omeprazole 40 mg capsule,delayed release(DR/EC) 40 mg PO DAILY cyclobenzaprine 10 mg tablet 10 mg PO TID PRN (Reason: muscle spasm) Qty: 10 0RF alprazolam 2 mg tablet ciprofloxacin HCl [Cipro] 500 mg tablet 500 mg PO Q12H Qty: 14 0RF omeprazole 40 mg capsule,delayed release(DR/EC) 40 mg PO DAILY Qty: 30 0RF albuterol sulfate 90 mcg/actuation HFA aerosol inhaler 2 puff inhalation Q4-6H PRN (Reason: shortness of breath or wheezing) 30 Days Qty: 8.5 0RF fluticasone propionate [Flonase Allergy Relief] 50 mcg/actuation spray,suspension 1 spray intranasal BID Qty: 16 0RF Rx Instructions: administer into each nostril (DME) Aerochamber Plus Z Stat Spacer See Rx Instructions .Route Qty: 1 0RF Rx Instructions: As directed atenolol 100 mg tablet 100 mg PO DAILY Qty: 30 0RF cyclobenzaprine 10 mg tablet 10 mg PO BID PRN (Reason: muscle spasm) Qty: 14 0RF nystatin 100,000 unit/gram powder 1 applic topical BID Qty: 30 0RF atenolol 100 mg tablet 100 mg PO DAILY 14 Days Qty: 14 0RF omeprazole 40 mg capsule,delayed release(DR/EC) 40 mg PO BID Qty: 14 0RF fluticasone propionate [Flonase Allergy Relief] 50 mcg/actuation spray,suspension 1 spray intranasal BID Qty: 16 0RF Rx Instructions: administer into each nostril [id number] [Excedrin Extra Strength] 250-250-65 mg tablet 1 tablet PO Q4-6H PRN (Reason: pain) Qty: 60 0RF cyclobenzaprine 5 mg tablet 5 mg PO TID PRN (Reason: muscle spasm) Qty: 30 0RF ferrous sulfate 325 mg (65 mg iron) tablet 325 mg PO DAILY Qty: 90 1RF escitalopram oxalate [Lexapro] 20 mg tablet 20 mg PO DAILY Qty: 30 5RF Follow-up/Referrals: PHYSICIAN,COURT USHER [Primary Care Provider, Internal Medicine] Halina Oviedo DO [Physician, Family Practice] - 3 Days Time of Disposition: 06:47
--- NOTE | 2025-05-26 06:47 | ED.ANXIETY ---
HPI - Anxiety General Chief Complaint: Anxiety Stated Complaint: anxiety Time Seen by Provider: 05/26/25 06:45 History of Present Illness HPI narrative: Patient is a 55-year-old male who presents emergency department this evening complaining of anxiety. Patient does have a history of anxiety and is on Lexapro for it, states that he does take Xanax but is out of it and requesting a scripts. I did inform the patient that I will not be prescribing him a script for Xanax, this is a medication that needs to be prescribed by his primary care physician or psychiatrist as it is a controlled substance and it is inappropriate for me to refill it. He was informed that he can be treated for his anxiety in the emergency department but no script will be provided today. Related Data Home Medications ?Medication ?Instructions ?Recorded ?Confirmed ?Last Taken ?Type potassium chloride 10 mEq 10 meq PO DAILY 06/09/23 07/26/24 08/18/24 History tablet,extended release omeprazole 40 mg capsule,delayed 40 mg PO DAILY 04/22/24 08/29/24 08/18/24 History release alprazolam 2 mg tablet mg 04/17/25 Unknown History Allergies Allergy/AdvReac Type Severity Reaction Status Date / Time Iodinated Contrast Media Allergy Severe Anaphylaxis Verified 05/09/25 17:39 metformin Allergy Severe Stopped Verified 05/09/25 17:39 Breathing Sulfa (Sulfonamide Allergy Severe Anaphylaxis Verified 05/09/25 17:39 Antibiotics) sulfamethoxazole Allergy Severe Anaphylaxis Verified 05/09/25 17:39 famotidine Allergy Intermediate Hives Verified 05/09/25 17:39 losartan Allergy Intermediate SWLLEING Verified 05/09/25 17:39 LIP AND HIVES nebivolol Allergy Intermediate LIP Verified 05/09/25 17:39 SWELLING Quinolones Allergy Intermediate Nervousness Verified 05/09/25 17:39 valsartan Allergy Intermediate HIVES/SOB Verified 05/09/25 17:39 amlodipine Allergy Mild HIVES Verified 05/09/25 17:39 azithromycin Allergy Mild Nervousness Verified 05/09/25 17:39 pantoprazole Allergy Mild Hives Verified 05/09/25 17:39 spironolactone Allergy Mild RASH AND Verified 05/09/25 17:39 ITCHING trimethoprim Allergy Mild RASH Verified 05/09/25 17:39 morphine Allergy Unknown Verified 05/09/25 17:39 cephalexin AdvReac Mild Nervousness Verified 05/09/25 17:39 flavoxate AdvReac Mild Nervousness Verified 05/09/25 17:39 levofloxacin AdvReac Mild Nervousness Verified 05/09/25 17:39 lidocaine AdvReac Mild Nervousness Verified 05/09/25 17:39 lisinopril AdvReac Mild Nervousness Verified 05/09/25 17:39 nitrofurantoin AdvReac Mild Nervousness Verified 05/09/25 17:39 oxycodone AdvReac Mild Nervousness Verified 05/09/25 17:39 paroxetine AdvReac Mild Nervousness Verified 05/09/25 17:39 Review of Systems Review of Systems: All systems are reviewed and are negative unless stated otherwise in the HPI. [facility] Past Medical History Medical History Prediabetes Allergic rhinitis Chronic sinusitis Chronic post-traumatic stress disorder (PTSD) Anxiety Depression GERD (gastroesophageal reflux disease) Sleep apnea Asthma HTN (hypertension) CAD (coronary artery disease) history [place] Concussion Surgical History Surgical History H/O gastric bypass Hx of cholecystectomy History of cardiac cath History of colonoscopy Family History Family History Grandparent Family history of obesity Hypertension Diabetes mellitus Mother Depression Patient's mother is in good health Family history of mental disorder Father Hypertension Patient's father is in good health Family history of alcoholism Cerebrovascular accident Sibling Patient's sister is in good health Patient's brother is in good health Father Cerebrovascular accident Alcoholism Hypertension Heart disease Mother Family history of malignant neoplasm Depression Hypertension Other Family history of cardiovascular disease Social History Social History Smoking status: Former smoker Smoking end date: 09/13/95 Alcohol intake: former Substance use: never Substance use type: opiates Lack of Transportation: No Lack of Food: Never True Current Housing: I Have Housing Concerned About Future Housing: No Difficulty Paying Gas/Electric Bills: No Difficulty Paying for Meds: No Currently Unemployed: No Education: Master's Degree or Higher Difficulty w/ Childcare or Family Care: No Living arrangements: alone Occupation/Education: occupation Gender identity (if verbalized by the patient): Male Sexual Orientation (if Verbalized by the Patient): Straight or Heterosexual Spiritual care concerns: No Exam Narrative: General: Alert, awake, afebrile, anxious. HEENT: PERRL, no rhinorrhea, no post nasal drip, oropharynx clear. Neck: Trachea midline, no JVD, no lymphadenopathy. Cardiovascular: Regular rate and rhythm, no murmurs, rubs or gallops, no peripheral edema. Respiratory: Clear to auscultation bilaterally, no tachypnea, no wheezing, no rhonchi, no rubs, no respiratory distress. Abdomen: Soft, nontender, nondistended, no rebound, no guarding, no peritoneal signs. Musculoskeletal: No joint swelling or deformity, normal muscle tone. Skin: No rashes or petechia, no signs of infection. Psychiatric: Alert and oriented, normal behavior and judgment for situation. Neurological: Alert and oriented to person, place, and time. Follows all commands. No focal deficits, speech is clear and fluent. Course Vital Signs Vital signs: Vital Signs Temperature 97.5 F L 05/26/25 05:53 Pulse Rate 65 05/26/25 05:53 Respiratory Rate 20 05/26/25 05:53 Blood Pressure 171/103 H 05/26/25 05:53 Pulse Oximetry 100 05/26/25 05:53 Oxygen Delivery Room Air 05/26/25 05:53 Temperature 97.5 F L 05/26/25 05:53 Pulse Rate 65 05/26/25 05:53 Respiratory Rate 20 05/26/25 05:53 Blood Pressure 171/103 H 05/26/25 05:53 Pulse Oximetry 100 05/26/25 05:53 Oxygen Delivery Room Air 05/26/25 05:53 MDM - Anxiety MDM Narrative Medical decision making narrative: The patient was evaluated by myself in the emergency department. History is obtained from patient who is an independent historian and physical exam was performed. External medical records were reviewed at this time. Patient was administered Ativan 1 mg orally. Differential diagnosis considerations include anxiety, medication seeking behavior, acute stress reaction, panic disorder. Comorbidities impacting this visit include history of anxiety. I have evaluated and discussed social determinants of health with the patient that could potentially impact subsequent diagnosis and treatment plans. On repeat assessment of the patient, reevaluation revealed that the patient is doing well and is in no acute distress. Patient symptoms have improved since he arrived to our emergency department. Repeat vital signs were all reviewed and noted to be stable. Differential diagnosis and treatment plan were discussed with the patient at bedside. Patient agrees with discussion and after shared medical decision making agrees with discharge. All questions were answered to the patient's satisfaction. Patient will follow up with his PCP in 3-5 days. Patient was provided with strict return precautions and instructed to return to the emergency department if any new or worsening symptoms develop. The patient was discharged in stable condition. Discharge Plan Discharge Clinical Impression: Acute anxiety Patient Disposition: Home Condition: Improved Instructions: Antibiotic Form, Anxiety (ED) Additional Instructions: Please follow-up with the family doctor/psychiatrist within the next 3-5 days. Return to the ED if any new or worsening symptoms develop. You also provided with a referral to 1 of our primary care physicians if you are and able to get in with your doctors in a reasonable time. Call today to set up a follow-up appointment. Patient Language: Azerbaijani Prescriptions: No Action potassium chloride 10 mEq tablet extended release 10 meq PO DAILY omeprazole 40 mg capsule,delayed release(DR/EC) 40 mg PO DAILY cyclobenzaprine 10 mg tablet 10 mg PO TID PRN (Reason: muscle spasm) Qty: 10 0RF alprazolam 2 mg tablet ciprofloxacin HCl [Cipro] 500 mg tablet 500 mg PO Q12H Qty: 14 0RF omeprazole 40 mg capsule,delayed release(DR/EC) 40 mg PO DAILY Qty: 30 0RF albuterol sulfate 90 mcg/actuation HFA aerosol inhaler 2 puff inhalation Q4-6H PRN (Reason: shortness of breath or wheezing) 30 Days Qty: 8.5 0RF fluticasone propionate [Flonase Allergy Relief] 50 mcg/actuation spray,suspension 1 spray intranasal BID Qty: 16 0RF Rx Instructions: administer into each nostril (DME) Aerochamber Plus Z Stat Spacer See Rx Instructions .Route Qty: 1 0RF Rx Instructions: As directed atenolol 100 mg tablet 100 mg PO DAILY Qty: 30 0RF cyclobenzaprine 10 mg tablet 10 mg PO BID PRN (Reason: muscle spasm) Qty: 14 0RF nystatin 100,000 unit/gram powder 1 applic topical BID Qty: 30 0RF atenolol 100 mg tablet 100 mg PO DAILY 14 Days Qty: 14 0RF omeprazole 40 mg capsule,delayed release(DR/EC) 40 mg PO BID Qty: 14 0RF fluticasone propionate [Flonase Allergy Relief] 50 mcg/actuation spray,suspension 1 spray intranasal BID Qty: 16 0RF Rx Instructions: administer into each nostril [id number] [Excedrin Extra Strength] 250-250-65 mg tablet 1 tablet PO Q4-6H PRN (Reason: pain) Qty: 60 0RF cyclobenzaprine 5 mg tablet 5 mg PO TID PRN (Reason: muscle spasm) Qty: 30 0RF ferrous sulfate 325 mg (65 mg iron) tablet 325 mg PO DAILY Qty: 90 1RF escitalopram oxalate [Lexapro] 20 mg tablet 20 mg PO DAILY Qty: 30 5RF Follow-up/Referrals: PHYSICIAN,ADDRESS CHANGE CLERK [Primary Care Provider, Internal Medicine] Halina Oviedo DO [Physician, Family Practice] - 3 Days Time of Disposition: 06:47
[2025-05-26] MEDS: LORazepam (*CRX) 1 MG TABLET PO (07:04)
[2025-05-26 07:06] VITALS: BP 151/84; PULSE 88; RESP 20; TEMP 36.9; O2SAT 100
== END 2025-05-26 07:07 | disposition home or self-care (01) ==
LOC: ANHED 06:50
PROVIDERS: Emergency Provider Emergency Medicine
DX: F41.9 Anxiety disorder, unspecified (principal); I25.10 Atherosclerotic heart disease of native coronary artery without angina pectoris; I10 Essential (primary) hypertension; J45.909 Unspecified asthma, uncomplicated; Z79.899 Other long term (current) drug therapy; Z87.891 Personal history of nicotine dependence
CPT/HCPCS: 99283; A9270

== ENCOUNTER 2025-05-29 18:56 | Emergency (ER) | payer OTHER, SELFPAY ==
--- NOTE | 2025-05-29 19:03 | ED.GENADULT ---
HPI - General Adult General Chief complaint: Unspecified Stated complaint: acid coming up in throat Time Seen by Provider: 05/29/25 19:03 Source: patient, RN notes reviewed and old records reviewed Mode of arrival: ambulatory Limitations: no limitations History of Present Illness HPI narrative: 55-year-old male presents to the [facility] with ?acid come into my throat. ? Has a history of acid reflux. States he has not seen a GI doctor but sees a colorectal specialist. Patient unable to maintain a primary doctor. Patient is well-known to clinic, explained to patient that we will give him a 2 week supply but he will need to for further evaluation with a specialist or a primary for his future needs. Patient denies any chest pain or shortness of breath. States that he feels like his normal acid reflux issue periods has tried taking [id number] omeprazole which he states does not work only the prescription. Works. Related Data Home Medications ?Medication ?Instructions ?Recorded ?Confirmed ?Last Taken ?Type potassium chloride 10 mEq 10 meq PO DAILY 06/09/23 07/26/24 08/18/24 History tablet,extended release omeprazole 40 mg capsule,delayed 40 mg PO DAILY 04/22/24 08/29/24 08/18/24 History release alprazolam 2 mg tablet mg 04/17/25 Unknown History Allergies Allergy/AdvReac Type Severity Reaction Status Date / Time Iodinated Contrast Media Allergy Severe Anaphylaxis Verified 05/29/25 19:06 metformin Allergy Severe Stopped Verified 05/29/25 19:06 Breathing Sulfa (Sulfonamide Allergy Severe Anaphylaxis Verified 05/29/25 19:06 Antibiotics) sulfamethoxazole Allergy Severe Anaphylaxis Verified 05/29/25 19:06 famotidine Allergy Intermediate Hives Verified 05/29/25 19:06 losartan Allergy Intermediate SWLLEING Verified 05/29/25 19:06 LIP AND HIVES nebivolol Allergy Intermediate LIP Verified 05/29/25 19:06 SWELLING Quinolones Allergy Intermediate Nervousness Verified 05/29/25 19:06 valsartan Allergy Intermediate HIVES/SOB Verified 05/29/25 19:06 amlodipine Allergy Mild HIVES Verified 05/29/25 19:06 azithromycin Allergy Mild Nervousness Verified 05/29/25 19:06 pantoprazole Allergy Mild Hives Verified 05/29/25 19:06 spironolactone Allergy Mild RASH AND Verified 05/29/25 19:06 ITCHING trimethoprim Allergy Mild RASH Verified 05/29/25 19:06 morphine Allergy Unknown Verified 05/29/25 19:06 cephalexin AdvReac Mild Nervousness Verified 05/29/25 19:06 flavoxate AdvReac Mild Nervousness Verified 05/29/25 19:06 levofloxacin AdvReac Mild Nervousness Verified 05/29/25 19:06 lidocaine AdvReac Mild Nervousness Verified 05/29/25 19:06 lisinopril AdvReac Mild Nervousness Verified 05/29/25 19:06 nitrofurantoin AdvReac Mild Nervousness Verified 05/29/25 19:06 oxycodone AdvReac Mild Nervousness Verified 05/29/25 19:06 paroxetine AdvReac Mild Nervousness Verified 05/29/25 19:06 Review of Systems Review of Systems: All systems reviewed & are unremarkable except as noted in HPI and below Constitutional: Constitutional: Reports no additional constitutional complaints ENT: Reports system reviewed and no additional complaints, except as documented Cardiovascular: Cardiovascular: Reports no additional cardiovascular complaints, Denies chest pain and Denies dyspnea Respiratory: Respiratory: Reports no additional respiratory complaints, Denies chest congestion, Denies cough and Denies dyspnea Genitourinary: Genitourinary: Reports as per HPI Musculoskeletal: Musculoskeletal: Reports no additional musculoskeletal complaints Integumentary/Breasts: Skin/Breast: Reports system reviewed and no additional complaints, except as docu PMFSH Past Medical History Medical History Prediabetes Allergic rhinitis Chronic sinusitis Chronic post-traumatic stress disorder (PTSD) Anxiety Depression GERD (gastroesophageal reflux disease) Sleep apnea Asthma HTN (hypertension) CAD (coronary artery disease) history [place] Concussion Surgical History Surgical History H/O gastric bypass Hx of cholecystectomy History of cardiac cath History of colonoscopy Family History Family History Grandparent Family history of obesity Hypertension Diabetes mellitus Mother Depression Patient's mother is in good health Family history of mental disorder Father Hypertension Patient's father is in good health Family history of alcoholism Cerebrovascular accident Sibling Patient's sister is in good health Patient's brother is in good health Father Cerebrovascular accident Alcoholism Hypertension Heart disease Mother Family history of malignant neoplasm Depression Hypertension Other Family history of cardiovascular disease Social History Social History Smoking status: Former smoker Smoking end date: 09/13/95 Alcohol intake: former Substance use: never Substance use type: opiates Lack of Transportation: No Lack of Food: Never True Current Housing: I Have Housing Concerned About Future Housing: No Difficulty Paying Gas/Electric Bills: No Difficulty Paying for Meds: No Currently Unemployed: No Education: Master's Degree or Higher Difficulty w/ Childcare or Family Care: No Living arrangements: alone Occupation/Education: occupation Gender identity (if verbalized by the patient): Male Sexual Orientation (if Verbalized by the Patient): Straight or Heterosexual Spiritual care concerns: No Comments At the time of my signature, I reviewed and agree with the nursing past medical, surgical, social, and family history. There is no relevant family history pertinent to the patient complaint. Exam Const: General: cooperative, healthy appearing, comfortable, no acute distress, well developed, alert and well nourished Nutritional Appearance: well nourished and obese Orientation/consciousness: patient oriented x3 Limitations: no limitations HENMT: Head: normal to inspection Eyes: General: appearance normal, both eyes and all related structures Alignment and Position: alignment normal Neck: Neck: normal visual inspection, full ROM, no lymphadenopathy and no meningeal signs Chest: Chest palpation & inspection: normal inspection of the chest Resp: Effort & Inspection: normal respiratory effort and able to speak in complete sentences Cardio: Rate: regular rate GI: GI Palp: No abdominal tenderness Skin: General skin exam: normal color and no rashes or lesions noted Neuro: General: patient oriented x3, gait normal, moves all extremities and no meningeal signs Cognition (Neuro): normal cognition Speech: normal speech Gait exam (Neuro): Normal gait present Extrem: General: normal to inspection, full ROM, capillary refill normal and normal gait Psych: Appearance: grossly normal and well kempt Mental Status: mental status grossly normal Speech and movement: Normal speech and movement present and Clear speech present Affect: normal affect Attitude: cooperative Course Course Level of Care: Express Care Visit Vital Signs Vital signs: Vital Signs Temperature 98.7 F 05/29/25 19:05 Pulse Rate 61 05/29/25 19:05 Respiratory Rate 18 05/29/25 19:05 Blood Pressure 168/78 H 05/29/25 19:05 Pulse Oximetry 98 05/29/25 19:05 Oxygen Delivery Room Air 05/29/25 19:05 Temperature 98.7 F 05/29/25 19:05 Pulse Rate 61 05/29/25 19:05 Respiratory Rate 18 05/29/25 19:05 Blood Pressure 168/78 H 05/29/25 19:05 Pulse Oximetry 98 05/29/25 19:05 Oxygen Delivery Room Air 05/29/25 19:05 Reviewed Medical Decision Making MDM Narrative Medical decision making narrative: Patient sitting in exam room. Nontoxic, vitals stable except blood pressure elevated, instructed patient to follow-up with primary care provider. Patient presents requesting his omeprazole Will give 2 weeks apply encourage patient to follow-up with GI provider. Patient states that he will contact [facility]. Patient multiple times redirected into why he is here. Patient multiple times trying to get off topic in regards to previous interactions with providers. Discharge instructions reviewed with patient, as well as provided in writing per nursing staff. The instructions also include specific and strict return/GO TO THE ER as well as f/u information. All questions have been answered, and the patient deny any further questions with discharge and discharge plan. Some parts of this dictation were generated by voice recognition software and may contain typographical and/or grammatical inaccuracies. Medical Records Medical records reviewed: Yes I reviewed the external patient's medical records. Vital Signs Vital Signs: Vital Signs Temperature 98.7 F 05/29/25 19:05 Pulse Rate 61 05/29/25 19:05 Respiratory Rate 18 05/29/25 19:05 Blood Pressure 168/78 H 05/29/25 19:05 Pulse Oximetry 98 05/29/25 19:05 Oxygen Delivery Room Air 05/29/25 19:05 Temperature 98.7 F 05/29/25 19:05 Pulse Rate 61 05/29/25 19:05 Respiratory Rate 18 05/29/25 19:05 Blood Pressure 168/78 H 05/29/25 19:05 Pulse Oximetry 98 05/29/25 19:05 Oxygen Delivery Room Air 05/29/25 19:05 Reviewed Lab Data Lab results reviewed: Yes I reviewed the patient's lab results. Labs: Reviewed Critical Care Time Critical Care Time Critical Care Time: No Discharge Plan Discharge Clinical Impression: Hx of gastroesophageal reflux (GERD), Medication refill Patient Disposition: Home Condition: Stable Instructions: Diet for Stomach Ulcers and Gastritis (ED), GERD (Gastroesophageal Reflux Disease) (DC) Additional Instructions: Today your blood pressure was 168/78. Please follow-up with primary care provider for further evaluation, testing You have been prescribed 2 weeks of omeprazole. You need to follow-up with a GI provider as soon as possible For worsening symptoms go directly to the emergency room Patient Language: Georgian Prescriptions: New omeprazole 40 mg capsule,delayed release(DR/EC) 40 mg PO DAILY Qty: 14 0RF No Action potassium chloride 10 mEq tablet extended release 10 meq PO DAILY omeprazole 40 mg capsule,delayed release(DR/EC) 40 mg PO DAILY cyclobenzaprine 10 mg tablet 10 mg PO TID PRN (Reason: muscle spasm) Qty: 10 0RF alprazolam 2 mg tablet ciprofloxacin HCl [Cipro] 500 mg tablet 500 mg PO Q12H Qty: 14 0RF omeprazole 40 mg capsule,delayed release(DR/EC) 40 mg PO DAILY Qty: 30 0RF albuterol sulfate 90 mcg/actuation HFA aerosol inhaler 2 puff inhalation Q4-6H PRN (Reason: shortness of breath or wheezing) 30 Days Qty: 8.5 0RF fluticasone propionate [Flonase Allergy Relief] 50 mcg/actuation spray,suspension 1 spray intranasal BID Qty: 16 0RF Rx Instructions: administer into each nostril (DME) Aerochamber Plus Z Stat Spacer See Rx Instructions .Route Qty: 1 0RF Rx Instructions: As directed atenolol 100 mg tablet 100 mg PO DAILY Qty: 30 0RF cyclobenzaprine 10 mg tablet 10 mg PO BID PRN (Reason: muscle spasm) Qty: 14 0RF nystatin 100,000 unit/gram powder 1 applic topical BID Qty: 30 0RF atenolol 100 mg tablet 100 mg PO DAILY 14 Days Qty: 14 0RF omeprazole 40 mg capsule,delayed release(DR/EC) 40 mg PO BID Qty: 14 0RF fluticasone propionate [Flonase Allergy Relief] 50 mcg/actuation spray,suspension 1 spray intranasal BID Qty: 16 0RF Rx Instructions: administer into each nostril [id number] [Excedrin Extra Strength] 250-250-65 mg tablet 1 tablet PO Q4-6H PRN (Reason: pain) Qty: 60 0RF cyclobenzaprine 5 mg tablet 5 mg PO TID PRN (Reason: muscle spasm) Qty: 30 0RF ferrous sulfate 325 mg (65 mg iron) tablet 325 mg PO DAILY Qty: 90 1RF escitalopram oxalate [Lexapro] 20 mg tablet 20 mg PO DAILY Qty: 30 5RF Follow-up/Referrals: PHYSICIAN,MIXER PIGMENT [Primary Care Provider, Internal Medicine] Time of Disposition: 19:18
[2025-05-29 19:05] VITALS: BP 168/78; PULSE 61; RESP 18; TEMP 37.1; O2SAT 98
== END 2025-05-29 19:20 | disposition home or self-care (01) ==
PROVIDERS: Emergency Provider Nurse Practitioner
DX: K21.9 Gastro-esophageal reflux disease without esophagitis (principal); R73.03 Prediabetes; I10 Essential (primary) hypertension; I25.10 Atherosclerotic heart disease of native coronary artery without angina pectoris; I25.2 Old myocardial infarction; J45.909 Unspecified asthma, uncomplicated; F41.9 Anxiety disorder, unspecified; F32.A Depression, unspecified; Z98.84 Bariatric surgery status
CPT/HCPCS: 99211; G0463

== ENCOUNTER 2025-05-31 18:19 | Emergency (ER) | payer OTHER, SELFPAY ==
--- NOTE | 2025-05-31 18:23 | ED.SKABFB ---
HPI - Skin/Abscess/Foreign Bdy General Chief complaint: Skin/Abscess/Foreign Body Stated complaint: Bump Left Side Cheek/Chills Time Seen by Provider: 05/31/25 18:20 Source: patient Mode of arrival: ambulatory Limitations: no limitations History of Present Illness HPI narrative: Patient is a 55-year-old male who presents with pimple on left cheek. Patient states he has been squeezing and tried to pop it. Patient was seen 2 days ago and 5 days ago. Related Data Home Medications ?Medication ?Instructions ?Recorded ?Confirmed ?Last Taken ?Type potassium chloride 10 mEq 10 meq PO DAILY 06/09/23 07/26/24 08/18/24 History tablet,extended release omeprazole 40 mg capsule,delayed 40 mg PO DAILY 04/22/24 08/29/24 08/18/24 History release alprazolam 2 mg tablet mg 04/17/25 Unknown History Allergies Allergy/AdvReac Type Severity Reaction Status Date / Time Iodinated Contrast Media Allergy Severe Anaphylaxis Verified 05/29/25 19:06 metformin Allergy Severe Stopped Verified 05/29/25 19:06 Breathing Sulfa (Sulfonamide Allergy Severe Anaphylaxis Verified 05/29/25 19:06 Antibiotics) sulfamethoxazole Allergy Severe Anaphylaxis Verified 05/29/25 19:06 famotidine Allergy Intermediate Hives Verified 05/29/25 19:06 losartan Allergy Intermediate SWLLEING Verified 05/29/25 19:06 LIP AND HIVES nebivolol Allergy Intermediate LIP Verified 05/29/25 19:06 SWELLING Quinolones Allergy Intermediate Nervousness Verified 05/29/25 19:06 valsartan Allergy Intermediate HIVES/SOB Verified 05/29/25 19:06 amlodipine Allergy Mild HIVES Verified 05/29/25 19:06 azithromycin Allergy Mild Nervousness Verified 05/29/25 19:06 pantoprazole Allergy Mild Hives Verified 05/29/25 19:06 spironolactone Allergy Mild RASH AND Verified 05/29/25 19:06 ITCHING trimethoprim Allergy Mild RASH Verified 05/29/25 19:06 morphine Allergy Unknown Verified 05/29/25 19:06 cephalexin AdvReac Mild Nervousness Verified 05/29/25 19:06 flavoxate AdvReac Mild Nervousness Verified 05/29/25 19:06 levofloxacin AdvReac Mild Nervousness Verified 05/29/25 19:06 lidocaine AdvReac Mild Nervousness Verified 05/29/25 19:06 lisinopril AdvReac Mild Nervousness Verified 05/29/25 19:06 nitrofurantoin AdvReac Mild Nervousness Verified 05/29/25 19:06 oxycodone AdvReac Mild Nervousness Verified 05/29/25 19:06 paroxetine AdvReac Mild Nervousness Verified 05/29/25 19:06 Review of Systems Review of Systems: All systems reviewed & are unremarkable except as noted in HPI and below Constitutional: Constitutional: Denies body ache(s), Denies chills, Denies fatigue, Denies fever(s), Denies headache(s), Denies malaise and Denies weakness Eyes: Eyes: Denies blurry vision, Denies irritation and Denies loss of vision ENT: Denies otalgia, Denies headache(s), Denies nasal discharge, Denies sinus pain and Denies sore throat Cardiovascular: Cardiovascular: Denies chest pain, Denies irregular heart rhythm and Denies dyspnea Respiratory: Respiratory: Denies dyspnea Gastrointestinal: Gastrointestinal: Denies abdominal pain, Denies melena, Denies hematochezia, Denies diarrhea, Denies nausea and Denies vomiting Musculoskeletal: Musculoskeletal: Denies back pain, Denies myalgias and Denies arthralgias Integumentary/Breasts: Skin/Breast: Denies pruritus and Denies rash Neurologic: Denies headache(s), Denies loss of vision and Denies weakness Psychiatric: Psychiatric: Reports no additional psychiatric complaints Endocrine: Endocrine: Denies fatigue [facility] Past Medical History Medical History Prediabetes Allergic rhinitis Chronic sinusitis Chronic post-traumatic stress disorder (PTSD) Anxiety Depression GERD (gastroesophageal reflux disease) Sleep apnea Asthma HTN (hypertension) CAD (coronary artery disease) history [place] Concussion Surgical History Surgical History H/O gastric bypass Hx of cholecystectomy History of cardiac cath History of colonoscopy Family History Family History Grandparent Family history of obesity Hypertension Diabetes mellitus Mother Depression Patient's mother is in good health Family history of mental disorder Father Hypertension Patient's father is in good health Family history of alcoholism Cerebrovascular accident Sibling Patient's sister is in good health Patient's brother is in good health Father Cerebrovascular accident Alcoholism Hypertension Heart disease Mother Family history of malignant neoplasm Depression Hypertension Other Family history of cardiovascular disease Social History Social History Smoking status: Former smoker Smoking end date: 09/13/95 Alcohol intake: former Substance use: never Substance use type: opiates Lack of Transportation: No Lack of Food: Never True Current Housing: I Have Housing Concerned About Future Housing: No Difficulty Paying Gas/Electric Bills: No Difficulty Paying for Meds: No Currently Unemployed: No Education: Master's Degree or Higher Difficulty w/ Childcare or Family Care: No Living arrangements: alone Occupation/Education: occupation Gender identity (if verbalized by the patient): Male Sexual Orientation (if Verbalized by the Patient): Straight or Heterosexual Spiritual care concerns: No Comments At time of signature, agree with nursing past medical, surgical, social and family history. There is no relevant family history pertinent to the presenting complaint. Exam Const: General: cooperative, healthy appearing, comfortable, no acute distress and well nourished Nutritional Appearance: well nourished Orientation/consciousness: patient oriented x3 Limitations: no limitations HENMT: Head: normal to inspection, normocephalic and atraumatic Ears: hearing grossly normal bilaterally and external ears normal Face/Nose/Sinus: Normal external nose present, normal facial exam and face symmetric Face and sinus: normal facial exam and face symmetric Mouth: Yes lip normal Eyes: General: appearance normal, both eyes and all related structures Alignment and Position: alignment normal and position normal Periorbital: periorbital findings normal Eyelids: eyelids normal Pupils: Equal, round and reactive pupils present EOM: EOMs intact bilaterally Neck: Neck: normal visual inspection, full ROM and supple Chest: Chest palpation & inspection: normal inspection of the chest Resp: Effort & Inspection: normal respiratory effort and able to speak in complete sentences Auscultation: clear to auscultation bilaterally Cardio: Rate: regular rate Rhythm: regular rhythm Heart sounds: S1 normal heart sound present and S2 normal heart sound present GI: Inspection: normal to inspection Skin: General skin exam: normal color and no rashes or lesions noted Full body images:  1. 0.5 cm area induration with open wound in center. no active drainage, warmth, redness Neuro: General: patient oriented x3 and moves all extremities Cranial nerves: Yes Equal, round and reactive pupils present Speech: normal speech Gait exam (Neuro): Normal gait present Extrem: General: normal to inspection, full ROM and no edema Psych: Appearance: grossly normal and well kempt Mental Status: mental status grossly normal Speech and movement: Normal speech and movement present Affect: normal affect Attitude: cooperative Thought process: Normal thought process present Course Course Emergency Course: Patient is aware of diagnosis, understands and agrees to treatment plan. Anticipatory guidance given. Patient agrees to follow-up as directed and is aware of reasons to seek care at the emergency department. Portions of this record may have been created with voice recognition software Level of Care: Express Care Visit Vital Signs Vital signs: Vital Signs Temperature 37.3 C 05/31/25 18:25 Pulse Rate 63 05/31/25 18:25 Respiratory Rate 16 05/31/25 18:25 Blood Pressure 145/75 H 05/31/25 18:25 Pulse Oximetry 98 05/31/25 18:25 Oxygen Delivery Room Air 05/31/25 18:25 Temperature 37.3 C 05/31/25 18:25 Pulse Rate 63 05/31/25 18:25 Respiratory Rate 16 05/31/25 18:25 Blood Pressure 145/75 H 05/31/25 18:25 Pulse Oximetry 98 05/31/25 18:25 Oxygen Delivery Room Air 05/31/25 18:25 Reviewed MDM - Skin/Abscess/Foreign Bdy MDM Narrative Medical decision making narrative: My dull and DM Differential Diagnosis Differential diagnosis: Likely abscess of skin or subcutaneous tissue, cellulitis and contact dermatitis Medical Records Attestation: I reviewed the patient's medical records. Discharge Plan Discharge Clinical Impression: Folliculitis Patient Disposition: Home Condition: Stable Instructions: Folliculitis (ED) Additional Instructions: Keep the area clean and dry - cleanse with warm water and mild soap and allow to fully dry. apply the antibiotic ointment as directed Keep it open to air as much as possible Watch for worsening symptoms including pain, redness, swelling, fever. Go to the ER with any of these symptoms or concerns. Follow up with primary care provider in 1 week as needed. Patient Language: Latvian Prescriptions: New mupirocin 2 % ointment 1 applic topical BID Qty: 15 0RF No Action potassium chloride 10 mEq tablet extended release 10 meq PO DAILY omeprazole 40 mg capsule,delayed release(DR/EC) 40 mg PO DAILY cyclobenzaprine 10 mg tablet 10 mg PO TID PRN (Reason: muscle spasm) Qty: 10 0RF alprazolam 2 mg tablet ciprofloxacin HCl [Cipro] 500 mg tablet 500 mg PO Q12H Qty: 14 0RF omeprazole 40 mg capsule,delayed release(DR/EC) 40 mg PO DAILY Qty: 30 0RF albuterol sulfate 90 mcg/actuation HFA aerosol inhaler 2 puff inhalation Q4-6H PRN (Reason: shortness of breath or wheezing) 30 Days Qty: 8.5 0RF fluticasone propionate [Flonase Allergy Relief] 50 mcg/actuation spray,suspension 1 spray intranasal BID Qty: 16 0RF Rx Instructions: administer into each nostril (DME) Aerochamber Plus Z Stat Spacer See Rx Instructions .Route Qty: 1 0RF Rx Instructions: As directed atenolol 100 mg tablet 100 mg PO DAILY Qty: 30 0RF omeprazole 40 mg capsule,delayed release(DR/EC) 40 mg PO DAILY Qty: 14 0RF cyclobenzaprine 10 mg tablet 10 mg PO BID PRN (Reason: muscle spasm) Qty: 14 0RF nystatin 100,000 unit/gram powder 1 applic topical BID Qty: 30 0RF atenolol 100 mg tablet 100 mg PO DAILY 14 Days Qty: 14 0RF omeprazole 40 mg capsule,delayed release(DR/EC) 40 mg PO BID Qty: 14 0RF fluticasone propionate [Flonase Allergy Relief] 50 mcg/actuation spray,suspension 1 spray intranasal BID Qty: 16 0RF Rx Instructions: administer into each nostril [id number] [Excedrin Extra Strength] 250-250-65 mg tablet 1 tablet PO Q4-6H PRN (Reason: pain) Qty: 60 0RF cyclobenzaprine 5 mg tablet 5 mg PO TID PRN (Reason: muscle spasm) Qty: 30 0RF ferrous sulfate 325 mg (65 mg iron) tablet 325 mg PO DAILY Qty: 90 1RF escitalopram oxalate [Lexapro] 20 mg tablet 20 mg PO DAILY Qty: 30 5RF Follow-up/Referrals: Augusto Erickson MD [Physician, Family Practice] Referral Note: Establish care Time of Disposition: 18:41
[2025-05-31 18:25] VITALS: BP 145/75; PULSE 63; RESP 16; TEMP 37.3; O2SAT 98
== END 2025-05-31 18:50 | disposition home or self-care (01) ==
PROVIDERS: Emergency Provider Nurse Practitioner Family
DX: L73.9 Follicular disorder, unspecified (principal); I25.10 Atherosclerotic heart disease of native coronary artery without angina pectoris; I10 Essential (primary) hypertension; R73.03 Prediabetes; K21.9 Gastro-esophageal reflux disease without esophagitis; J45.909 Unspecified asthma, uncomplicated; F41.9 Anxiety disorder, unspecified; F32.A Depression, unspecified; Z87.891 Personal history of nicotine dependence; Z98.84 Bariatric surgery status
CPT/HCPCS: 99213; G0463

== ENCOUNTER 2025-06-10 16:12 | Emergency (ER) | payer OTHER, SELFPAY ==
[2025-06-10 16:19] VITALS: BP 152/84; PULSE 75; RESP 18; TEMP 36.9; O2SAT 98
--- NOTE | 2025-06-10 16:24 | ED.GENADULT ---
HPI - General Adult General Chief complaint: Unspecified Stated complaint: Acid Reflux Time Seen by Provider: 06/10/25 16:24 Source: patient, RN notes reviewed and old records reviewed Mode of arrival: ambulatory Limitations: no limitations History of Present Illness HPI narrative: Patient reports history of gastric reflux and has been taking Omeprazole but is out of medication and needs refill of that medication and also Atenolol blood pressure medication. Patient reports that he has had increase in the epigastric burning for the past few days and wonders if he should possibly be on Carafate also. Patient reports that he has Carafate at home. Patient reports that he sometimes has acid reflux with drinking water. Patient reports that he has pychiatrist that orders his xanax and has been talking with the hospital liason to try to get primary care doctor. Patient reports no shortness of breath, denies any episodes of vomiting or diarrhea. MD complaint: acid reflux Onset (ago): week(s) (increased symptoms for 2 weeks) Treatments prior to arrival: other (medication) Related Data Home Medications ?Medication ?Instructions ?Recorded ?Confirmed ?Last Taken ?Type potassium chloride 10 mEq 10 meq PO DAILY 06/09/23 07/26/24 08/18/24 History tablet,extended release alprazolam 2 mg tablet mg 04/17/25 Unknown History Allergies Allergy/AdvReac Type Severity Reaction Status Date / Time Iodinated Contrast Media Allergy Severe Anaphylaxis Verified 06/10/25 16:18 metformin Allergy Severe Stopped Verified 06/10/25 16:18 Breathing Sulfa (Sulfonamide Allergy Severe Anaphylaxis Verified 06/10/25 16:18 Antibiotics) sulfamethoxazole Allergy Severe Anaphylaxis Verified 06/10/25 16:18 famotidine Allergy Intermediate Hives Verified 06/10/25 16:18 losartan Allergy Intermediate SWLLEING Verified 06/10/25 16:18 LIP AND HIVES nebivolol Allergy Intermediate LIP Verified 06/10/25 16:18 SWELLING Quinolones Allergy Intermediate Nervousness Verified 06/10/25 16:18 valsartan Allergy Intermediate HIVES/SOB Verified 06/10/25 16:18 amlodipine Allergy Mild HIVES Verified 06/10/25 16:18 azithromycin Allergy Mild Nervousness Verified 06/10/25 16:18 pantoprazole Allergy Mild Hives Verified 06/10/25 16:18 spironolactone Allergy Mild RASH AND Verified 06/10/25 16:18 ITCHING trimethoprim Allergy Mild RASH Verified 06/10/25 16:18 morphine Allergy Unknown Verified 06/10/25 16:18 cephalexin AdvReac Mild Nervousness Verified 06/10/25 16:18 flavoxate AdvReac Mild Nervousness Verified 06/10/25 16:18 levofloxacin AdvReac Mild Nervousness Verified 06/10/25 16:18 lidocaine AdvReac Mild Nervousness Verified 06/10/25 16:18 lisinopril AdvReac Mild Nervousness Verified 06/10/25 16:18 nitrofurantoin AdvReac Mild Nervousness Verified 06/10/25 16:18 oxycodone AdvReac Mild Nervousness Verified 06/10/25 16:18 paroxetine AdvReac Mild Nervousness Verified 06/10/25 16:18 Review of Systems Review of Systems: CONSTITUTIONAL: Denies fever, chills, or sweats. EYES: Denies visual changes, redness, or discharge. ENT: Denies rhinorrhea, congestion, sore throat, or otalgia. CARDIOVASCULAR: Denies chest pain, palpitations, or edema. RESPIRATORY: Denies cough or dyspnea. GASTROINTESTINAL: Denies acute abdominal pain,no nausea, vomiting, or diarrhea. GENITOURINARY: Denies dysuria or hematuria. SKIN: Denies rash or itching. MUSCULOSKELETAL: Denies back pain, joint pain, or myalgia. NEUROLOGIC: Denies headache, numbness, or weakness. PSYCHIATRIC: Reports history of anxiety or depression. All systems reviewed & are unremarkable except as noted in HPI and below PMFSH Past Medical History Medical History Prediabetes Allergic rhinitis Chronic sinusitis Chronic post-traumatic stress disorder (PTSD) Anxiety Depression GERD (gastroesophageal reflux disease) Sleep apnea Asthma HTN (hypertension) CAD (coronary artery disease) history [place] Concussion Surgical History Surgical History H/O gastric bypass Hx of cholecystectomy History of cardiac cath History of colonoscopy Family History Family History Grandparent Family history of obesity Hypertension Diabetes mellitus Mother Depression Patient's mother is in good health Family history of mental disorder Father Hypertension Patient's father is in good health Family history of alcoholism Cerebrovascular accident Sibling Patient's sister is in good health Patient's brother is in good health Father Cerebrovascular accident Alcoholism Hypertension Heart disease Mother Family history of malignant neoplasm Depression Hypertension Other Family history of cardiovascular disease Social History Social History Smoking status: Former smoker Smoking end date: 09/13/95 Alcohol intake: former Substance use: never Substance use type: opiates Lack of Transportation: No Lack of Food: Never True Current Housing: I Have Housing Concerned About Future Housing: No Difficulty Paying Gas/Electric Bills: No Difficulty Paying for Meds: No Currently Unemployed: No Education: Master's Degree or Higher Difficulty w/ Childcare or Family Care: No Living arrangements: alone Occupation/Education: occupation Gender identity (if verbalized by the patient): Male Sexual Orientation (if Verbalized by the Patient): Straight or Heterosexual Spiritual care concerns: No Comments At time of signature, agree with nursing past medical, surgical, social and family history. There is no relevant family history pertinent to the presenting complaint Exam Narrative: GENERAL: Well-appearing, well-nourished, and in no acute distress. HEAD: Normocephalic, atraumatic. EYES: PERRLA and EOMI. ENT: Nares clear, no rhinorrhea or epistaxis. Mucous membranes moist. NECK: Supple. no lymphadenopathy CHEST: Clear to auscultation. No respiratory distress. no cough noted SAO2 98% on room air HEART: Regular rate and rhythm. No murmur heard. Normal peripheral pulses. ABDOMEN: Soft, reports some tenderness at epigastric at times, no palpable pain. nondistended, normal active bowel sounds. EXTREMITIES: Normal range of motion. No edema. SKIN: Warm, dry, no rash. NEURO: No focal deficits. Alert and oriented x3. Course Course Emergency Course: Patient is aware of diagnosis, understands and agrees to treatment plan.? Anticipatory guidance given.? Patient agrees to follow-up as directed and is aware of reasons to seek care at the emergency department. Portions of this record may have been created with voice recognition software Level of Care: Express Care Visit Vital Signs Vital signs: Vital Signs Temperature 36.9 C 06/10/25 16:19 Pulse Rate 75 06/10/25 16:19 Respiratory Rate 18 06/10/25 16:19 Blood Pressure 152/84 H 06/10/25 16:19 Pulse Oximetry 98 06/10/25 16:19 Oxygen Delivery Room Air 06/10/25 16:19 Temperature 36.9 C 06/10/25 16:19 Pulse Rate 75 06/10/25 16:19 Respiratory Rate 18 06/10/25 16:19 Blood Pressure 152/84 H 06/10/25 16:19 Pulse Oximetry 98 06/10/25 16:19 Oxygen Delivery Room Air 06/10/25 16:19 Reviewed Medical Decision Making MDM Narrative Medical decision making narrative: Exam findings and imaging show no acute concerns or changes; patient is non-toxic appearing and is in no distress.? Patient is appropriate for outpatient treatment and follow-up Differential Diagnosis Differential Diagnosis: acid reflux, GERD, medication refill. Medical Records Medical records reviewed: Yes I reviewed the external patient's medical records. Vital Signs Vital Signs: Vital Signs Temperature 36.9 C 06/10/25 16:19 Pulse Rate 75 06/10/25 16:19 Respiratory Rate 18 06/10/25 16:19 Blood Pressure 152/84 H 06/10/25 16:19 Pulse Oximetry 98 06/10/25 16:19 Oxygen Delivery Room Air 06/10/25 16:19 Temperature 36.9 C 06/10/25 16:19 Pulse Rate 75 06/10/25 16:19 Respiratory Rate 18 06/10/25 16:19 Blood Pressure 152/84 H 06/10/25 16:19 Pulse Oximetry 98 06/10/25 16:19 Oxygen Delivery Room Air 06/10/25 16:19 reviewed Critical Care Time Critical Care Time Critical Care Time: No Discharge Plan Discharge Clinical Impression: Hx of gastroesophageal reflux (GERD), Medication refill Patient Disposition: Home Condition: Stable Instructions: GERD (Gastroesophageal Reflux Disease) (DC), Esophageal Spasm (ED), Medicine Refill (ED) Additional Instructions: Take omeprazole as ordered Avoid fried, greasy, fatty, fried foods Avoid caffeine, nicotine, and alcohol Return to your regular diet in the next 3-4 days Do not skip meals Sometimes ibuprofen/Aleve can cause increased stomach upset Follow-up with her PCP if continued problems or uncontrolled pain If your symptoms persist, change or worsen significantly before you can contact your personal physician then please, without delay, go to the emergency department for further evaluation. Follow-up with PCP in 7-10 days or sooner if needed Follow up with PCP soon in regards to your blood pressure which is elevated above threshold for referral. Blood pressure above 120/80 may indicate pre-hypertension. 152/84 Patient Language: Turkmen Prescriptions: New omeprazole 40 mg capsule,delayed release(DR/EC) 40 mg PO DAILY Qty: 30 0RF atenolol 100 mg tablet 100 mg PO DAILY Qty: 30 0RF No Action potassium chloride 10 mEq tablet extended release 10 meq PO DAILY alprazolam 2 mg tablet ciprofloxacin HCl [Cipro] 500 mg tablet 500 mg PO Q12H Qty: 14 0RF albuterol sulfate 90 mcg/actuation HFA aerosol inhaler 2 puff inhalation Q4-6H PRN (Reason: shortness of breath or wheezing) 30 Days Qty: 8.5 0RF fluticasone propionate [Flonase Allergy Relief] 50 mcg/actuation spray,suspension 1 spray intranasal BID Qty: 16 0RF Rx Instructions: administer into each nostril (DME) Aerochamber Plus Z Stat Spacer See Rx Instructions .Route Qty: 1 0RF Rx Instructions: As directed atenolol 100 mg tablet 100 mg PO DAILY Qty: 30 0RF mupirocin 2 % ointment 1 applic topical BID Qty: 15 0RF nystatin 100,000 unit/gram powder 1 applic topical BID Qty: 30 0RF atenolol 100 mg tablet 100 mg PO DAILY 14 Days Qty: 14 0RF fluticasone propionate [Flonase Allergy Relief] 50 mcg/actuation spray,suspension 1 spray intranasal BID Qty: 16 0RF Rx Instructions: administer into each nostril [id number] [Excedrin Extra Strength] 250-250-65 mg tablet 1 tablet PO Q4-6H PRN (Reason: pain) Qty: 60 0RF ferrous sulfate 325 mg (65 mg iron) tablet 325 mg PO DAILY Qty: 90 1RF escitalopram oxalate [Lexapro] 20 mg tablet 20 mg PO DAILY Qty: 30 5RF Follow-up/Referrals: PHYSICIAN,HYDRAULIC JACK ADJUSTER [Primary Care Provider, Internal Medicine] Time of Disposition: 16:47 [place] Coma Scale Eyes: Open Verbal: Oriented and Alert Motor: Follows Commands Tayo Coma Total Score: 15
== END 2025-06-10 16:55 | disposition home or self-care (01) ==
PROVIDERS: Emergency Provider Registered Nurse
DX: K21.9 Gastro-esophageal reflux disease without esophagitis (principal); I10 Essential (primary) hypertension; I25.10 Atherosclerotic heart disease of native coronary artery without angina pectoris; I25.2 Old myocardial infarction; R73.03 Prediabetes; J45.909 Unspecified asthma, uncomplicated; F41.9 Anxiety disorder, unspecified; F32.A Depression, unspecified; Z98.84 Bariatric surgery status; Z87.891 Personal history of nicotine dependence
CPT/HCPCS: 99211; 99213; G0463

== ENCOUNTER 2025-06-19 09:32 | Emergency (ER) | payer OTHER, SELFPAY ==
--- NOTE | ~2025-06-19 | CT_ITS ---
Exam: CT abdomen and pelvis without contrast Clinical History: [Diverticulitis. ] Comparison: [ CT abdomen pelvis 01/15/2025] Technique: Multiple axial CT images of the abdomen and pelvis were obtained without IV contrast. Sagittal and coronal reformatted images were obtained. FINDINGS: Lung bases: [Small opacities in the lower lungs. ] Liver: [ No mass.] [ No intrahepatic biliary duct dilatation.] Gallbladder: Surgically absent. Common bile duct: [ Normal caliber.] [ No stones.] Spleen: [ Within normal limits.] Pancreas: [ No mass. No pancreatic fluid collection.] Adrenals: [ No masses.] Kidneys: [ No masses. No hydronephrosis.][ ] Stable 5 mm nonobstructing left renal stone. Stable small right renal stone. Lymph nodes: [ No adenopathy in the abdomen or pelvis.] Stomach, small bowel and colon: Grossly stable appearance of the known mass in the sigmoid colon. Concentric thickening of the marie of the descending colon and proximal sigmoid colon possibly due to colitis. There are a few diverticuli in the sigmoid colon. Peritoneum cavity: [ No mesenteric fat stranding or fluid.] Bladder: [ Unremarkable.] Osseous structures: [ No acute fracture or destructive lesion.] [ Multilevel degenerative change in the visualized spine.] Abdominal aorta: [ No aneurysm.] Additional findings: [ None of significance.] IMPRESSION: 1. Grossly stable appearance of the known mass in the sigmoid colon. Correlate clinically. 2. Concentric thickening of the marie of the descending colon and proximal sigmoid colon possibly due to diverticulitis. Reviewed, dictated and finalized at location Q. IMPRESSION: 1. Grossly stable appearance of the known mass in the sigmoid colon. Correlate clinically. 2. Concentric thickening of the marie of the descending colon and proximal sigm oid colon possibly due to diverticulitis.
[2025-06-19 09:40] VITALS: BP 169/95; PULSE 65; RESP 20; TEMP 36.5; O2SAT 99
--- OUTSIDE RECORDS SUMMARY | 2025-06-19 10:07 | XMS_ITS | Encounter Summary ---
Author Organization [facility] Address [address] [address] Care Team Providers Care Bistro Server Name Role Phone Unavailable Primary Care Provider Unavailabl e Encounter Details Date Type Department Care Team (Late st Contact Info) Description 09/08/2019 Telephone [facility] [address] [facility] [address] [place] [address] Radha Palafox APRN-CNP [address] [facility] [place] [id number] Social History Tobacco Use Types Packs/Day Years Used Date Smoking Tobacco: Former Smokeless Tobacco: Never Alcohol Use Standard Drinks/Week Comments No 0 (1 standard drink = 0.6 oz pur e alcohol) Sex and Gender Information Value Date Recorded Sex Assigned at Not on file Legal Sex 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 I can not do anything for him over the phone. MELISA Diaz GE APPRAISER * Telephone Encounter - Mallory Flores RN [...] He would like you to call him [phone] GE APPRAISER documented in this encounter Plan of Treatment Not on file documented as of this encounter Visit Diagnoses Not on filedocumented in this encounter
--- OUTSIDE RECORDS SUMMARY | 2025-06-19 10:07 | XMS_ITS | Encounter Summary ---
Author Organization [facility] Address [address] [facility] [place] [address] Care Team Providers Care Beam Sealer Name Role Phone Unavailable Primary Care Provider Unavailabl e Reason for Visit * Reason Onset Date Comments Blood Pressure 12/01/2019 Encounter Details Date Type Department Care Team (Late st Contact Info) Description 12/01/2019 Nurse Triage Formerly [facility] Internal Medicine [address] [facility] [address] [place] [address] Radha Palafox, DIRECT SALES PROFESSIONAL-EVENT REPRESENTATIVE [address] OF [facility] [place] [phone] Blood Pressure Social History Tobacco Use Types Packs/Day Years Used Date Smoking Tobacco: Former Smokeless Tobacco: Never Alcohol Use Standard Drinks/Week Comments No 0 (1 standard drink = 0.6 oz pur e alcohol) Sex and Gender Information Value Date Recorded Sex Assigned at Not on file 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 [...]
--- OUTSIDE RECORDS SUMMARY | 2025-06-19 10:07 | XMS_ITS | Patient Health Record ---
Author Organization [employer] Address [address] [facility] [address] Gillespie [address] [place] [phone] Reason For Referral No Information Plan Of Treatment No Information
--- OUTSIDE RECORDS SUMMARY | 2025-06-19 10:07 | XMS_ITS | Encounter Summary ---
Author Organization [facility] Healthcare Address [address] [place] [address] Care Team Providers Care Flanging Machine Operator Name Role Phone Jagdeep Sanford DO Primary Care Provider [phone] Miscellaneous, Not In File Unavailable Unava Charanjit Wilburn MD Primary Care Provider [phone] Carlos Gamboa MD Primary Care Provid er Unknown, Notinfile Primary Care Provider Unavail able No, Physician Primary Care Provider [phone] Unknown, Notinfile Primary Care Provider Unavail able No, Physician Primary Care Provider [phone] Unknown, Notinfile Primary Care Provider Unavail able Adin Lino MD Primary Care Provider + Unknown, Notinfile Primary Care Provider Unavail able Encounter Details Date Type Department Care Team (Late st Contact Info) Description 11/29/2019 Documentation [facility] Respiratory [address] [place] [address] Herbie Ramsey RRT Social History Tobacco Use [...] file Legal Sex Male 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 Gender Identity Not on file Sexual Orientation [...] COVID: Suspected 10/11/2023 10/11/2023 10/11/2023 5:30 PM SUPERVISOR REIN[employer]ED STEEL PLACING COVID: Suspected 10/22/2024 10/22/2024 10/22/2024 5:53 PM SUPERVISOR REIN[employer]ED STEEL PLACING Influenza, adult 10/22/2024 10/22/2024 10/29/2024 3:05 AM SUPERVISOR REIN[employer] STEEL PLACING documented as of this encounter Care Teams Flanging Machine Operator Relationship Specialty Start Date End Date Jagdeep Sanford DO [address] [place] [id number] PCP - General Family Medicine 11/16/19 01/20/20 Charanjit Sheffield MD PCP - General 01/21/20 09/29/20 Carlos Gamboa MD [address] [place] [address] PCP - General Family Medicine 09/30/20 05/07/21 Unknown, Notinfile PCP - General 05/08/21 11/26/21 No, Physician PCP - General 11/27/21 01/13/23 Unknown, Notinfile PCP - General 01/14/23 01/17/24 No, Physician PCP - General 01/18/24 04/21/24 Unknown, Notinfile PCP - General 04/22/24 07/30/24 Adin Lino MD [address] [place] [address] PCP - General Internal Medicine 07/31/24 07/31/24 Unknown, Notinfile PCP - General 08/01/24 Miscellaneous, Not In File 3 documented as of this encounter
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
--- OUTSIDE RECORDS SUMMARY | 2025-06-19 10:07 | XMS_ITS | Encounter Summary ---
Author Organization [facility] Health Address [address] [facility] [place] [address] Care Team Providers Care Gunner'S Mate M Name Role Phone Unavailable Primary Care Provider Unavailabl e Reason for Visit * Reason Onset Date Comments FLU 11/27/2019 Encounter Details Date Type Department Care Team (Late st Contact Info) Description 11/27/2019 Telephone [facility] [address] [facility] [address] [place] [address] Radha Palafox, TYPING ELEMENT MACHINE OPERATOR-SENIOR ADMINISTRATIVE SUPPORT [address] OF [facility] [place] [phone] FLU Social History Tobacco Use Types Packs/Day Years Used Date Smoking Tobacco: Former Smokeless Tobacco: Never Alcohol Use Standard Drinks/Week Comments No 0 (1 standard drink = 0.6 oz pur e alcohol) Sex and Gender Information Value Date Recorded Sex Assigned at Not on file Legal Sex Male 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 Per medical office scheduler caller thinks he has coronavirus Attempted to call back and left vm. documented in this encounter Plan of Treatment Not on file documented as of this encounter Visit Diagnoses Not on filedocumented in this encounter
--- OUTSIDE RECORDS SUMMARY | 2025-06-19 10:07 | XMS_ITS | Encounter Summary ---
Author Organization [facility] Address [address] [place] [address] Care Team Providers Care Take Away Worker Name Role Phone Unavailable Primary Care Provider Unavailabl e Reason for Visit * Reason Onset Date Comments Med Question 10/18/2019 Med Question 10/19/2019 Order 10/20/2019 XRAY Follow-up 10/20/2019 Encounter Details Date Type Department Care Team (Late st Contact Info) Description 10/18/2019 Telephone [facility] Medicine [address] [address] Radha Palafox, AUDIO VISUAL SPECIALIST-DATA GOVERNANCE ANALYST [address] OF [facility] [place] [phone] Med Question; Med Question; Order (XRAY); Follow-up Social History Tobacco Use Types Packs/Day Years Used Date Smoking Tobacco: Former Smokeless Tobacco: Never Alcohol Use Standard Drinks/Week Comments No 0 (1 standard drink = 0.6 oz pur e alcohol) Sex and Gender Information Value Date Recorded Sex Assigned at Not on file Legal Sex Male 6:27 AM DITCH DIGGER Gender Identity Not on file Sexual Orientation Not on file documented as of this encounter Miscellaneous Notes * Telephone Encounter - Remedios Catalan LPN - 10/20/2019 2:05 PM DITCH DIGGER Pt came to 207 window. Pt is demanding xrays be done before his appointment. Pt is demanding that the nurse call me about this. I came early to have this done. I thought you people were here to helppatients. I want this done before the appointment because I want the results now. H DIGGER * Telephone Encounter - Lynne Mendes - 10/20/2019 1:47 PM CST Upon chart review, no new update message from MOTO MIX OPERATOR Petdionicio or xray order in system at this time. Outbound to pt to inform [place] called pt to inform of above update and pt verbalized understanding. [facility] now[facility] is going to go to office to see if can get an order for an Xray and then go to the lab to get labs drawn. No further questions or concerns at this time. CB# [phone] (home) Routed to provider for further review Routed to [facility] Nurse Communication for further review H DIGGER * Telephone Encounter - Lynne Mendes - 10/20/2019 12:35 PM CST Upon chart review, [place] checking for update from VENTURA Sheldonchen to c/b pt. As of this time, no new update from VENTURA Palafox. Will continue to monitor for update. H DIGGER * Telephone Encounter - Lynne Mendes - 10/20/2019 10:54 AM CST Outbound to [facility] Venus - unable to reach Upon chart review, Liz Catalan forwarded message to VENTURA Palafox for review. H DIGGER * Telephone Encounter - Lynne Mendes - 10/20/2019 9:54 AM CST Pt calling in b/c he is coming in to office today for OV w/ MOTO MIX OPERATOR Petdionicio @ 3:20pm and requesting an xray for kidney/left sided pain. Pt reports forgot to ask MOTO MIX OPERATOR Petdionicio yesterday during phone conversation for xray and is coming into city and would like to get xray before OV today so MOTO MIX OPERATOR Vivienne canbe able to read xray before OV. [...] states I needmore than 20min w/ the doctor. CB# [phone] (home) Routed to provider for further review HIGH PRIORITY H DIGGER * Telephone Encounter - Radha Palafox APRN-CNP - 10/19/2019 1:18 PM DITCH DIGGER Phone call--multiple vague complaints of not feeling well. Tired. Urinating a lot. BS are running 110--190. Is not taking Januvia which he claims gave him headaches and wasn't getting any benefit. Back pain--left sided. Told by chiropractor that it might be his kidney. Wet bed last night. Feels confused. Feels hot and cold but unable to check due to not having thermometer. Has appt with psychiatrist tomorrow. Claims he will keep appt tomorrow. MELISA Diaz H DIGGER * Telephone Encounter - Jovan Grewal - 10/19/2019 11:06 AM CST Pt called back again, stated the provider never got back to him. Reports he had some questions about taking Azo, and he spoke to the pharmacist, and reports he took the medication. Says he has been having trouble with wetting the bed, and woke up this am with a [...] with the provider today, call back number [phone] provided Message routed to provider H DIGGER * Telephone Encounter - Mallory Flores RN [...] like this he had to take xanax. [phone] H DIGGER documented in this encounter Plan of Treatment Not on file documented as of this encounter Visit Diagnoses Not on filedocumented in this encounter
--- OUTSIDE RECORDS SUMMARY | 2025-06-19 10:07 | XMS_ITS | Clinical Summary ---
Author Organization [facility] Address [address] [facility] [place] [address] Care Team Providers Care Digital Sales Executive Name Role Phone Unavailable Primary Care Provider Unavailabl e Source Comments [facility],non-owned Affiliates and Associated Physician Practices is amultiple site organization consisting of ambulatory clinics and hospital sitesin [place], [place], [place] and [place]. This disclosure is being madepursuant to the Care Everywhere program and may not contain all information available regarding this patient. Last updated 18.[facility] Allergies Active Allergy Reactions Criticality Noted Date [...] GM tablet TK 1 T QID 0 05/14/20 19 Active simethicone (GAS-X) 80 MG chew tablet Take 80 mg by mouth Active albuterol HFA (PROVENTIL;VENTOLI N;PROAIR) 108 (90 Base) MCG/ACT inhaler INL 1 TO 2 PFS PO Q 4 H PRF SOB 1 Inhaler 11 08/01/20 19 Active fluticasone propionate (FLONASE) 50 MCG/ACT nasal spray [place] 2 sprays into each nostril once daily 15.8 g 11 08/01/20 19 Active hyoscyamine 0.125 MG tabletIndications: Acute diverticulitis Take 1 tablet by mouth every 4 hours as needed for Spasms 30 tablet 09/30/19 20 Active promethazine (PHENERGAN) 25 MG tabletIndications: Acute diverticulitis Take 1 tablet by mouth every 6 hours as needed for Nausea/Vomiti ng 20 tablet 10/20/19 20 Active ipratropium (ATROVENT) 0.06 % nasal spray [place] 2 sprays into each nostril 3 times daily 15 mL 10/28/19 20 Active cyclobenzaprine (FLEXERIL) 10 MG tablet Take 10 mg by mouth 3 times daily as needed 10/06/19 20 Active alfuzosin CR 24hr (UROXATRAL) 10 MG tablet Take 1 tablet by mouth once daily 30 tablet 3 11/09/19 20 Active omeprazole (PRILOSEC) 20 MG capsule Take 1 capsule by mouth once daily 30 capsule 11/17/19 20 Active predniSONE (DELTASONE) 50 MG tabletIndications: Allergic to IV contrast TAKE 1 TAB @ 13 HRS, 7 HRS, AND [address] 3 tablet 11/23/19 20 Active diphenhydrAMINE (BENADRYL) 50 MG capsuleIndications :Allergic to IV contrast TAKE [address] 1 capsule 11/23/19 20 Active hydrALAZINE (APRESOLINE) 25 MG tablet Take 1 tablet by mouth 3 times daily 90 tablet 12/03/19 20 Active hydroCHLOROthiazid e (MICROZIDE) 12.5 MG capsule Take 1 capsule by mouth once daily 30 capsule 12/04/19 20 Active trandolapril (MAVIK) 2 MG tablet Take 1 tablet by mouth once daily 30 tablet 1 12/12/19 20 Active polyethylene glycol (GOLYTELY;NULYTELY ) 240 g solution Drink 1/2 of prep at 5pm the night before test. Finish the prep at 4am the day of test. 4000 mL 03/27/20 20 Active hyoscyamine 0.125 MG tabletIndications: Acute diverticulitis Take 1 tablet by mouth every 6 hours as needed for Spasms 50 tablet 1 09/02/20 20 Active atenolol (TENORMIN) 100 MG tabletIndications: Essential hypertension Take 1 tablet by mouth once daily This will be last times this will be ordered by YAIMA since he has been dismissed from practice. 30 tablet 3 09/02/20 20 Active ciprofloxacin (CIPRO) 500 MG tabletIndications: Acute diverticulitis Take 1 tablet by mouth 2 times daily 20 tablet 09/02/20 20 Active hydrOXYzine HCl (Atarax) 25 MG tablet Take 1 (one) tablet by mouth 4 times daily as needed for Itching 30 tablet 05/28/20 25 Active ALPRAZolam (Xanax) 1 MG tabletIndications: Anxiety Take 1 (one) tablet by mouth 2 times daily as needed for Anxiety Reasons: Feeling Anxious 14 tablet 12/01/19 23 025 Discontinu ed(Tx Complete) ALPRAZolam (Xanax) 2 MG tablet Take 1 (one) tablet by mouth 3 times daily as needed for Anxiety 9 tablet 05/22/20 25 025 Active Problems Problem Noted Date Diagnosed Date [...] psychiatric, April 01, [facility] in [place]. Microcytic anemia 07/02/2015 SOB (shortness of breath) [...] 07/05/2012 08/01/2019 Overview (07/21/2015): Dizziness 12/05/2009 08/01/2019 Encounters Date Type Department Care Team Description 05/28/2025 7:20 AM CDT - 05/28/2025 8:27 AM CDT Emergency ER at [address] [address] Halina West MD Encounter for medication refill Discharge Disposition: Home or Self Care 05/28/2025 Travel 05/27/2025 3:05 PM CDT - 05/27/2025 3:06 PM CDT Emergency ER at [address] [address] Encounter for medication refill Discharge Disposition: Home or Self Care 05/22/2025 8:18 AM CDT - 05/22/2025 8:25 AM CDT Emergency ER at [address] [address] Encounter for medication refill (Primary Dx) Discharge Disposition: Home or Self Care 05/22/2025 Travel 03/22/2025 9:42 AM CDT - 03/22/2025 10:36 AM CDT Emergency ER at [address] [address] Encounter for medication refill Discharge Disposition: Home or Self Care 03/22/2025 Travel from Last 3 Months Immunizations Immunization Administration Dates Next Due TD [...] drink = 0.6 oz pur e alcohol) AUDIT-C Answer Date Recorded Q1: How often do you have a drink containing alcohol? Never 05/27/2025 Q2: How many drinks containi ng alcohol do you have on a typical day when you are drinking? Patient does not drink Q3: How often do you have si x or more drinks on one occasion? 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 CLASSIFIER Gender Identity Not on file Sexual Orientation Not on file Last Filed Vital Signs Vital Sign Reading Time Taken Comments Blood Pressure 159/80 05/28/2025 6:43 AM CDT Pulse 62 05/28/2025 6:43 AM CDT Temperature 36.3 C (97.4 F) 05/28/2025 6:43 AM CDT Respiratory Rate 18 05/28/2025 6:43 AM CDT Oxygen Saturation 98% 05/28/2025 6:43 AM CDT Inhaled Oxygen Concentration - - Weight 106.6 kg (235 lb) 05/28/2025 1:30 AM CDT Height 188 cm (6' 2) 05/28/2025 1:30 AM CDT Body Mass Index 30.17 05/28/2025 1:30 AM CDT Plan of Treatment Health Maintenance [...] 2012 DIABETES RETINOPATHY SCREENING 09/01/2019 DIABETES-HGB A1C 07/24/2020 01/22/2020, , 07/02/2015 DIABETES-FOOT EXAM WITH MONOFILAMENT 08/01/2020 08/01/2019 DTAP/TDAP/TD VACCINES (2 - Td or Tdap) 09/13/2021 09/13/2011 ZOSTER VACCINE (1 of 2) 02/09/2022 DEPRESSION SCREENING 09/13/2024 DIABETES - URINE PROTEIN SCREENING 09/13/2024 10/20/2019 COVID-19 VACCINE (1 - season) 2025 INFLUENZA VACCINE (#1) 2025 DIABETES-SERUM CREATININE 02/06/20262024, 02/06/2025, 11/10/2022, Additional history exists HEPATITIS C SCREENING Completed 10/20/2019 HIB VACCINE [...] URINE RANDOM PANEL Routine 10/20/2019 2:41 PM POLE CLASSIFIER Type 2 diabetes mellitus without complication, without long-term current use of insulin COMPREHENSIVE METABOLIC PANEL Routine 10/20/2019 2:41 PM POLE CLASSIFIER Type 2 diabetes mellitus without complication, without long-term current use of insulin Obesity with serious comorbidity, unspecified classification, unspecified obesity type HEPATITIS C AB W RFLX VERIFICATION Routine 10/20/2019 2:41 PM POLE CLASSIFIER Type 2 diabetes mellitus without complication, without long-term current use of insulin Need for hepatitis C screening test HEMOGLOBIN A1C - POINT OF CARE (AMB) [facility] Routine 08/01/2019 Type 2 diabetes mellitus without complication, without long-term current use of insulin from Last 3 Months or Most Recently Relevant to Health Maintenance Results * HEPATITIS C AB W RFLX VERIFICATION (10/20/2019 2:41 PM POLE CLASSIFIER) Hepatitis C Antibody <0.1 0.0 - 0.9 s/co ratio 10/21/2019 8:18 AM POLE CLASSIFIER [facility] ([facility]) Blood BLOOD SPECIMEN / Unknown Lab Venipuncture / Unknown 10/20/2019 2:41 PM POLE CLASSIFIER 10/20/2019 3:01 PM POLE CLASSIFIER Narrative [facility] ([facility]) - 10/21/2019 8:18 AM POLE CLASSIFIER Performed at: [facility] [id number] Centerless Grinder: Carlos Woods PhD, Phone: [phone] us Radha Palafox DRILL PRESS OPERATOR HELPER[facility] - CHEMISTRY ORD ERABLES Final Result [facility] ([facility]) [address] [place] [address] * (ABNORMAL) MICROALB/CREAT RATIO URINE RANDOM PANEL (10/20/2019 2:41 PM POLE CLASSIFIER) Albumin Random Urine 65.0 Not Established mcg/mL 10/20/2019 4:57 PM [facility] Creatinine Urine 143 Not Established mg/dL 10/20/2019 4:57 PM [facility] Comment: Result obtained by dilution. Urine Albumin/Creati nine Ratio 45(H) <30 mg/g 10/20/2019 4:57 PM [facility] Urine URINE SPECIMEN OBTAINED BY CLEAN CATCH PROCEDURE / Unknown Collection / Unknown 10/20/2019 2:41 PM POLE CLASSIFIER 10/20/2019 3:01 PM [facility] Radha Palafox [facility] - URINE RESIDENCE COUNSELOR RY ORDERABLES Final Result [facility] [address] [place] [address] * (ABNORMAL) COMPREHENSIVE METABOLIC PANEL (10/20/2019 2:41 PM POLE CLASSIFIER) Pathologist [facility] BUN 11 7 - 26 mg/dL 10/20/2019 3:33 PM [facility] Creatinine 0.9 0.6 - 1.2 mg/dL 10/20/2019 3:33 PM [facility] Sodium 142 136 - 145 mmol/L 10/20/2019 3:33 PM [facility] Potassium 3.3(L) 3.5 - 4.5 mmol/L 10/20/2019 3:33 PM [facility] Chloride 104 98 - 107 mmol/L 10/20/2019 3:33 PM [facility] CO2 25 22 - 29 mmol/L 10/20/2019 3:33 PM [facility] Glucose 96 70 - 115 mg/dL 10/20/2019 3:33 PM [facility] Calcium 9.5 8.4 - 10.2 mg/dL 10/20/2019 3:33 PM [facility] Protein Total 8.2 6.0 - 8.3 g/dL 10/20/2019 3:33 PM [facility] Albumin 4.2 3.4 - 5.0 g/dL 10/20/2019 3:33 PM [facility] Bilirubin Total 1.7(H) 0.2 - 1.2 mg/dL 10/20/2019 3:33 PM [facility] Alkaline Phosphatase 75 40 - 150 Units/L 10/20/2019 3:33 PM [facility] ALT 60(H) 0 - 55 Units/L 10/20/2019 3:33 PM [facility] AST 63(H) 5 - 34 Units/L 10/20/2019 3:33 PM [facility] Anion Gap 16 8 - 18 10/20/2019 3:33 PM [facility] BUN/Creatinine Ratio 12 7 - 23 10/20/2019 3:33 PM [facility] Osmolality Calculated 293 270 - 300 mOsm/kg 10/20/2019 3:33 PM [facility] Albumin/Globulin Ratio 1.1 1.1 - 2.3 10/20/2019 3:33 PM [facility] eGFR >60 >60 mL/min/1.7 3 m2 10/20/2019 3:33 PM [facility] Blood BLOOD SPECIMEN / Unknown Lab Venipuncture / Unknown 10/20/2019 2:41 PM POLE CLASSIFIER 10/20/2019 3:01 PM POLE CLASSIFIER Radha Palafox APRN-SAFETY SEALER LAB - CHEMISTRY ORD ERABLES Final Result [facility] [address] [place] [address] * HEMOGLOBIN A1C - POINT OF CARE (AMB) [facility] (08/01/2019) Pathologist [facility] Hemoglobin A1c POCT 7.5 BLOOD SPECIMEN / Unknown 08/01/2019 Radha Palafox DRILL PRESS OPERATOR HELPER-SAFETY SEALER LAB - POINT OF CARE ORDERABLES Final Result from Last 3 Months or Most Recently Relevant to Health Maintenance Insurance [employer] [facility]
--- OUTSIDE RECORDS SUMMARY | 2025-06-19 10:07 | XMS_ITS | Clinical Summary ---
Author Organization [facility] Administrative Offices Address [address] [place] [address] Care Team Providers Care Advanced Practice Nurse Psychotherapist Name Role Phone Unavailable Primary Care Provider [...] Reported on 12/05/2015 meclizine (ANTIVERT) 25 mg tabletIndication s:Diabetes mellitus type 2, controlled, without complications,Sl eep apnea, unspecified sleep apnea type,Benign hypertension Take 25 mg by mouth 2 times daily as needed for Dizziness. Active promethazine (PHENERGAN) 25 mg tablet Take 1 Tablet (25 mg) by mouth every 6 hours as needed for Nausea. 30 Tablet None 6 Active fluticasone (FLONASE) 50 mcg/spray [place], Suspension Administer 2 Sprays in each nostril [...] on file Legal Sex Male 4:57 AM TUBE OPERATOR Gender Identity Not on file Sexual Orientation Not on file Occupation Industry Job Start Date Job End Date Not on file Not on file Not on file Not on file Not on file Not on file Not on file Not on file Last Filed Vital Signs Vital Sign Reading Time Taken Comments Blood Pressure 152/94 11/18/2019 7:07 AM TUBE OPERATOR Pulse 66 11/18/2019 7:07 AM TUBE OPERATOR Temperature 36.7 C (98.1 F) 11/18/2019 5:34 AM TUBE OPERATOR Respiratory Rate 18 11/18/2019 7:07 AM TUBE OPERATOR Oxygen Saturation 98% 11/18/2019 7:07 AM TUBE OPERATOR Inhaled Oxygen Concentration - - Weight 120.2 kg (265 lb) 11/18/2019 5:34 AM TUBE OPERATOR Height 188 cm (6' 2) 11/18/2019 5:34 AM TUBE OPERATOR Body Mass Index 34.02 11/18/2019 5:34 AM TUBE OPERATOR Plan of Treatment Health Maintenance Due Date [...] - 6.1 % 07/02/2015 5:25 PM CDT [id number] AVG GLUCOSE, A1C 140 mg/dL 07/02/2015 5:25 PM CDT [facility] Blood Venipuncture - Floor Collect / Unknown 07/02/2015 2:10 AM CDT 07/02/2015 2:11 AM CDT Narrative [facility] - 07/02/2015 5:25 PM CDT Based on the ADAG study equation. us Iwona Arteaga APN CHEMISTRY ORDERABLES Final R esult [facility] CLIA# [id number] [address] [place] [id number] from Last 3 Months or Most Recently Relevant to Health Maintenance Insurance MEDICAID Advance Directives For more information, please contact: [phone] * Full Code (Latest Code Status on File) Date Activated Date Inactivated Comments 07/02/2015 8:36 AM 07/02/2015 8:02 PM * Full Code Date Activated Date Inactivated Comments 08/28/2014 2:37 PM 08/28/2014 5:13 PM
--- OUTSIDE RECORDS SUMMARY | 2025-06-19 10:07 | XMS_ITS | Encounter Summary ---
Author Organization [facility] Facility Care Team Providers Care Saw Edge Fuser Circular Name Role Phone No, Physician Primary Care Provider [phone] Cata Clifton NP Primary Care Provider [phone] No, Physician Primary Care Provider Miscellaneous, Not In File Primary Care Provider Unavailable Jagdeep Sanford DO Primary Care Provider [phone] Miscellaneous, Not In File Unavailable Unava Charanjit Wilburn MD Primary Care Provider [phone] Carlos Gamboa MD Primary Care Provid er Unknown, Notinfile Primary Care Provider Unavail able No, Physician Primary Care Provider [phone] Unknown, Notinfile Primary Care Provider Unavail able No, Physician Primary Care Provider [phone] Unknown, Notinfile Primary Care Provider Unavail able Adin Lino MD Primary Care Provider + Unknown, Notinfile Primary Care Provider Unavail able Encounter Details Date Type Department Care Team (Latest Contact Info) Description 06/23/2018 Orders Only [facility]IN[facility] ProviderRachael MD [address] [place] [id number] Social History Tobacco Use Types Packs/Day Years Used Date Smoking Tobacco: Former Smokeless Tobacco: Never Alcohol Use Standard Drinks/Week Comments No 0 (1 standard drink = 0.6 oz pur e alcohol) Sex and Gender Information Value Date Recorded Sex Assigned at Not on file Legal Sex Male 1:40 AM MANAGER INTENSIVE CARE UNIT Gender Identity Not on file Sexual Orientation [...] COVID: Suspected 10/11/2023 10/11/2023 10/11/2023 5:30 PM MANAGER INTENSIVE CARE UNIT COVID: Suspected 10/22/2024 10/22/2024 10/22/2024 5:53 PM MANAGER INTENSIVE CARE UNIT Influenza, adult 10/22/2024 10/22/2024 10/29/2024 3:05 AM MANAGER INTENSIVE CARE UNIT documented as of this encounter Care Teams Saw Edge Fuser Circular Relationship Specialty Start Date End Date No, Physician PCP - General 09/15/17 03/16/19 Cata Clifton NP PCP - General 03/17/19 11/04/19 No, Physician PCP - General 11/05/19 11/11/19 Miscellaneous, Not In File PCP - General 11/12/19 0 Jagdeep Sanford DO [address] [place] [id number] PCP - General Family Medicine 11/16/19 01/20/20 Charanjit Sheffield MD [address] [place] [id number] PCP - General 01/21/20 09/29/20 Carlos Gamboa MD [address] [place] [address] [id number] PCP - General Family Medicine 09/30/20 05/07/21 Unknown, Notinfile PCP - General 05/08/21 11/26/21 No, Physician PCP - General 11/27/21 01/13/23 Unknown, Notinfile PCP - General 01/14/23 01/17/24 No, Physician PCP - General 01/18/24 04/21/24 Unknown, Notinfile PCP - General 04/22/24 07/30/24 Adin Lino MD [address] [place] [id number] PCP - General Internal Medicine 07/31/24 07/31/24 Unknown, Notinfile PCP - General 08/01/24 Miscellaneous, Not In File 11/16/19 documented as of this encounter
--- OUTSIDE RECORDS SUMMARY | 2025-06-19 10:07 | XMS_ITS | Encounter Summary ---
Author Organization [facility] Health Address [address] [facility] [place] [address] Care Team Providers Care Stock Car Driver Name Role Phone Unavailable Primary Care Provider Unavailabl e Reason for Visit * Reason Onset Date Comments Erroneous encounter-disregard 10/20/2019 Encounter Details Date Type Department Care Team (Late st Contact Info) Description 10/20/2019 Telephone [facility] [address] [facility] [address] [place] [address] Radha Palafox, EDGE CUTTER-UNDERCOVER COP [address] OF [facility] [place] [phone] Erroneous encounter-disregard Social History Tobacco Use Types Packs/Day Years Used Date Smoking Tobacco: Former Smokeless Tobacco: Never Alcohol Use Standard Drinks/Week Comments No 0 (1 standard drink = 0.6 oz pur e alcohol) Sex and Gender Information Value Date Recorded Sex Assigned at Not on file Legal Sex Male 6:27 AM MANAGER OF CLINICAL Gender Identity Not on file Sexual Orientation Not on file documented as of this encounter Miscellaneous Notes * Telephone Encounter - Lynne Mendes - 10/20/2019 10:46 AM CST err GER OF CLINICAL documented in this encounter Plan of Treatment Not on file documented as of this encounter Visit Diagnoses Not on filedocumented in this encounter
--- OUTSIDE RECORDS SUMMARY | 2025-06-19 10:07 | XMS_ITS | Encounter Summary ---
Author Organization [facility] Health Address [address] [facility] [place] [address] Care Team Providers Care Scoop Driver Name Role Phone Unavailable Primary Care Provider Unavailabl e Reason for Visit * Reason Onset Date Comments Nausea 10/02/2019 Cramps 10/02/2019 Pain Abdominal 10/02/2019 Encounter Details Date Type Department Care Team (Late st Contact Info) Description 10/02/2019 Telephone [facility] [address] [facility] [address] [place] [address] Radha Palafox, JOY LOADER-ELECTRONIC TECHNICIAN [address] OF [facility] [place] [phone] Nausea; Cramps; Pain Abdominal Social History Tobacco Use Types Packs/Day Years Used Date Smoking Tobacco: Former Smokeless Tobacco: Never Alcohol Use Standard Drinks/Week Comments No 0 (1 standard drink = 0.6 oz pur e alcohol) Sex and Gender Information Value Date Recorded Sex Assigned at Not on file Legal Sex Male 6:27 AM PRIMARY CARE SALES REPRESENTATIVE Gender Identity Not on file Sexual [...] no UTI. Pt requesting [facility] office call [facility], [phone] for ED report for VENTURA Palafox to review. TN recommended pt call ED and request medical records to be faxed to [facility] and pt raised voice w/ increased agitation at TN stating he had no time and would not be able to go sign medical release paperwork if needed. Pt difficult to redirect at times d/t increased agitation and speaking over TN w/ loud voice and reports he has no ABD pain but has burning, gassy 1/10 feels like discomfort. TN offered triage to pt. Pt accepted [...] for c/b to discuss sx further. CB# [phone] Routed to provider for further review ARY CARE SALES REPRESENTATIVE documented in this encounter Plan of Treatment Not on file documented as of this encounter Visit Diagnoses Not on filedocumented in this encounter
--- OUTSIDE RECORDS SUMMARY | 2025-06-19 10:07 | XMS_ITS | Clinical Summary ---
Author Organization [place] [address] [facility] Address [address] [place] [address] Care Team Providers Care Cork Insulator Name Role Phone Miscellaneous, Not In File [...] Panic attack Olanzapine Hallucinations Medium 03/12/2017 Medications diphenhydrAMINE (BENADRYL) 25 mg capsule Take 2 tablet/capsule (50 mg total) by mouth daily Active fluticasone propionate (FLONASE) 50 mcg/actuation nasal sprayIndications: Non-seasonal allergic rhinitis, unspecified trigger Administer 2 sprays into each nostril daily 1 Inhaler 5 1 Active promethazine (PHENERGAN) 25 mg tablet Take 1 tablet (25 mg total) by mouth every 6 (six) hours as needed for nausea or vomiting 12 tablet 4 Active omeprazole (PriLOSEC) 40 mg capsule Take 1 capsule (40 mg total) by mouth daily 60 capsule 4 07/20/20 25 Active hyoscyamine (LEVSIN) 0.125 mg tabletIndications :Urinary Incontinence Take 1 tablet (0.125 mg total) by mouth every 4 (four) hours as needed for cramping 30 tablet 5 Active albuterol HFA (PROVENTIL HFA,VENTOLIN HFA,PROAIR HFA) 90 mcg/actuation inhaler Inhale 2 puffs every 4 (four) hours as needed for shortness of breath 6.7 g 5 Active ALPRAZolam (XANAX) 2 mg tablet Take 1 tablet (2 mg total) by mouth nightly as needed for anxiety 6 tablet 5 Active atenoloL (TENORMIN) 100 mg tablet Take 1 tablet (100 mg total) by mouth daily 30 tablet 5 Active atenoloL (TENORMIN) 100 mg tablet Take 1 tablet (100 mg total) by mouth daily 30 tablet 5 03/01/20 26 Active ciprofloxacin (CIPRO) 500 mg tablet Take 1 tablet (500 mg total) by mouth 2 (two) times a day 20 tablet 5 Active hyoscyamine (LEVSIN) 0.125 mg tabletIndications :Urinary Incontinence Take 1 tablet (0.125 mg total) by mouth every 4 (four) hours as needed for cramping 120 tablet 5 Active hydrOXYzine (ATARAX) 25 mg tablet Take 1 tablet (25 mg total) by mouth every 6 (six) hours 12 tablet 5 Active permethrin (ELIMITE) 5 % creamIndications: scabies Apply to affected area once, wash off after 8-14 hours. Repeat in 2 weeks if symptoms have not subsided 2 g 5 Active escitalopram (LEXAPRO) 20 mg tablet Take 1 tablet (20 mg total) by mouth daily 30 tablet 5 Active Active Problems Problem Noted Date Diagnosed Date Severe obesity 02/16/2025 Diverticulitis 07/21/2024 Anemia 05/05/2024 Abnormal finding on [...] pain and frequency. -See either PCP or modeling manager to manage diabetes. -I told patient that if he fails this, we may need to look at further testing for penile pain. Patient verbalized understanding. OAB (overactive bladder) 11/09/2020 Assessment & Plan (11/13/2020 6:03 PM TANK ERECTOR): -Symptoms are suggestive of OAB. Prostate size [...] 11/09/2020 Assessment & Plan (11/09/2020 5:21 PM TANK ERECTOR): -Patient has history of diverticulitis, benign tumor [...] appointment. Assessment & Plan (11/09/2020 5:20 PM TANK ERECTOR): -CT showing non-obstructing stones in kidney. Patient [...] 0 Assessment & Plan (11/16/2019 4:14 PM TANK ERECTOR): Old psychiatrist, Dr Easley, in [place]. Rx'ed [...] 11/16/2019 Assessment & Plan (11/16/2019 4:11 PM TANK ERECTOR): Not taking meds as prescribed. Pt asked to leave before A1C could be tested. Severe obesity (BMI 35.0-35.9 with comorbidity) 11/16/2019 Assessment & Plan (11/16/2019 4:14 PM TANK ERECTOR): Body mass index is 35.12 kg/m . Unable to breastfeeding peer counselor him given [...] (03/12/2017): Scheduled appointment with psychiatric, April 01, [facility] in [place]. Anxiety 03/12/2017 Obesity (BMI 30-39.9) 03/12/2017 Benzodiazepine [...] 11/09/2020 Assessment & Plan (11/16/2019 3:59 PM TANK ERECTOR): Severe with h/o panic attacks with xanax [...] research on prior controlled substance use on [facility]. 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 Wasn't able to see many doctors in the area because he had been fired. Encounters Date Type Department Care Team Description 05/28/2025 12:05 AM CDT - 05/28/2025 12:47 AM CDT Emergency [facility] Emergency Department [address] [place] [address] Encounter for medication refill (Primary Dx); Benzodiazepine dependence (HCC) Discharge Disposition: Discharge to home or self care 05/21/2025 4:51 PM CDT - 05/21/2025 7:22 PM CDT Emergency [facility] Emergency Department [address] [place] [address] Encounter for medication refill (Primary Dx); Benzodiazepine dependence (HCC) Discharge Disposition: Discharge to home or self care 05/16/2025 5:40 AM CDT - 05/16/2025 6:27 AM CDT Emergency [facility] Emergency Department [address] [place] [address] Cheko Romero MD RAKESH (generalized anxiety disorder) (Primary Dx); Medication refill Discharge Disposition: Discharge to home or self care 05/10/2025 4:01 AM CDT - 05/10/2025 4:39 AM CDT Emergency [facility] Emergency Department [address] [place] [address] Janae Liz MD Anxiety (Primary Dx); Drug-seeking behavior Discharge Disposition: Discharge to home or self care 04/27/2025 1:31 PM CDT - 04/27/2025 2:11 PM CDT Emergency [address] [address] Scabies (Primary Dx); Drug-seeking behavior Discharge Disposition: Discharge to home or self care 03/22/2025 8:44 AM CDT - 03/22/2025 9:32 AM CDT Emergency [facility] Emergency Department [address] [place] [address] Anxiety (Primary Dx); Benzodiazepine dependence (HCC) Discharge Disposition: Discharge to home or self care 03/22/2025 6:00 AM CDT - 03/22/2025 7:56 AM CDT Emergency [facility] Emergency Department [address] [place] [address] Nicole Mena MD Anxiety (Primary Dx) Discharge Disposition: Discharge to home or self care from Last 3 Months Immunizations Immunization Administration Dates Next Due Td, Unspecified 09/13/2011 Surgical History Surgery Date Site/Laterality Comments CHOLECYSTECTOMY CHOLECYSTECTOMY 09/13/2000 - 09/12/2001 Medical History Medical History Date Comments Hypertension Diverticulosis Arthritis PTSD (post-traumatic stress disorder) Depression Recurrent major depressive disorder Benzodiazepine dependence (HCC) Anxiety Type 2 diabetes mellitus Asthma Colon tumor sigmoid benign Diverticulitis Family [...] making you feel afraid or unsafe? Denies 05/27/2025 Sex and Gender Information Value Date Recorded Sex Assigned at Not on file Legal Sex Male 1:40 AM TANK ERECTOR Gender Identity Not on file Sexual Orientation Not on file Obstetrics History Last Filed Vital Signs Vital Sign Reading Time Taken Comments Blood Pressure 157/80 05/27/2025 11:44 PM CDT Pulse 60 05/27/2025 11:44 PM CDT Temperature 36.9 C (98.4 F) 05/27/2025 11:44 PM CDT Respiratory Rate 16 05/27/2025 11:44 PM CDT Oxygen Saturation 96% 05/27/2025 11:44 PM CDT Inhaled Oxygen Concentration - - Weight 106.6 kg (235 lb) 05/27/2025 11:44 PM CDT Height 188 cm (6' 2) 05/21/2025 2:03 PM CDT Body Mass Index 30.17 05/21/2025 2:03 PM CDT Plan of Treatment Scheduled Procedures Name Priority [...] Tdap) 09/14/2011 2 Hemoglobin A1C 07/24/2020 01/22/2020, 100 03/2018, 03/01/2018 Depression Screening 11/15/2020 11/16/2019, 11/16/2019, 03/12/2017 Lipid Panel 01/21/2021 01/22/2020, 02/0 03/2020, 03/26/2019, Additional history exists Zoster Vaccine (1 of 2) 02/09/2022 Influenza Vaccine (#1) 2025 eGFR 03/01/2026 03/01/2025, 050 05/2025, 10/13/2024, Additional history exists Colon Cancer Screening-Colonoscopy 07/01/20272016 Procedures Procedure Name Priority Date/Time Associated Diagnosis Comments EGFR STAT 03/01/2025 7:26 PM CDT HEMOGLOBIN A1C Routine 01/22/2020 9:58 AM CDT LIPID PANEL Routine 01/22/2020 9:58 AM CDT COLONOSCOPY REPORT 07/01/2017 from Last 3 Months or Most Recently Relevant to Health Maintenance Results * eGFR (03/01/2025 7:26 PM CDT) eGFR 90 >=60 mL/min/1. 73 m2 Comment: Interpretive Data [...] 2021. Testing performed by: [facility], [address] [place] [address]., [id number] Blood 03/01/2025 7:26 PM CDT 03/01/2025 7:31 PM CDT Raza Bahena Jr., MD LAB BLOOD ORDERABLES Fi nal Result [facility] [place] [address] [facility] Department of Laboratories [place], [place] [id number] * (ABNORMAL) Hemoglobin A1c (01/22/2020 9:58 AM CDT) Hemoglobin A1c % 6.2(H) 4.0 - 5.6 % [facility] Comment: ADA 2016 GUIDELINES: Initial Diagnostic Criteria HbA1c Result: Interpretation: <5.7% Normal 5.7-6.4% At risk for diabetes mellitus >=6.5% Consistent with diabetes mellitus Diabetes monitoring Target value (ADA Recommended) <7% 01/22/2020 9:58 AM CDT 01/22/2020 10:14 AM CDT Narrative Resulting Agency Comment CLI us Charanjit Sheffield MD LAB BLOOD ORDERABLES Final Result [address] [phone] * (ABNORMAL) Lipid panel (01/22/2020 9:58 AM CDT) Triglycerides 173(H) 0 - 149 mg/dL [facility] Comment: National Lipid Association/NCEP Guidelines: Normal < 150 mg/dL Borderline high 150-199 mg/dL High 200-499 mg/dL Very High >=500 mg/dL Cholesterol 152 0 - 199 mg/dL [facility] Comment: National Lipid Association/NCEP Guidelines: Desirable < 200 mg/dL Borderline high: 200-239 mg/dL High Risk: >=240 mg/dL HDL Cholesterol 22 mg/dL [facility] Comment: Reference Ranges: Males: >=40 mg/dL Females: >=50 mg/dL LDL Cholesterol, Calc 95 0 - 129 mg/dL [facility] Comment: National Lipid Association/NCEP Guidelines: Optimal < 100 mg/dL Near Optimal 100-129 mg/dL Borderline high 130-159 mg/dL High >=160 mg/dL Cholesterol/HDL Ratio 6.9 [facility] Comment: Optimal < 3.5:1 High > 5:1 01/22/2020 9:5 8 AM CDT 01/22/2020 10:14 AM CDT Narrative Resulting Agency Comment CLI us Charanjit Sheffield MD LAB BLOOD ORDERABLES Final Result [address] [phone] * COLONOSCOPY REPORT (07/01/2017) Anatomical Region Laterality Modality Other us Provider Scanning GI PROCEDURE ORDERABLES Edited Result - Final from Last 3 Months or Most Recently Relevant to Health Maintenance Insurance Member Subscriber Plan / Payer (Ef fective 2019-Present) Name:Carlos Mcgee Relation to Subscriber:Self Name:Carlos Mcgee Payer ID:[id number] (NAIC) Group ID:Not on file Type:MEDICAID RISK OTHER Address: ATTN: CLAIMS DEPT [address] [facility] [place] [phone] Care Teams Cork Insulator Relationship Specialty Start Date End Date Unknown, Notinfile PCP - General 08/01/24 Miscellaneous, Not In File 11/16/19
--- OUTSIDE RECORDS SUMMARY | 2025-06-19 10:07 | XMS_ITS | Encounter Summary ---
Author Organization [facility] Health Address [address] [facility] [place] [address] Care Team Providers Care Comic Artist Name Role Phone Unavailable Primary Care Provider Unavailabl e Reason for Visit * Reason Onset Date Comments Blood Pressure 12/01/2019 Encounter Details Date Type Department Care Team (Late st Contact Info) Description 12/01/2019 Telephone [facility] [address] [facility] [address] [place] [address] Radha Palafox, FINANCIAL ADMINISTRATOR-COMMERCIAL HOUSEKEEPER [address] OF [facility] [place] [phone] Blood Pressure Social History Tobacco Use Types Packs/Day Years Used Date Smoking Tobacco: Former Smokeless Tobacco: Never Alcohol Use Standard Drinks/Week Comments No 0 (1 standard drink = 0.6 oz pur e alcohol) Sex and Gender Information Value Date Recorded Sex Assigned at Not on file Legal Sex Male 6:27 AM HEAD PUMPER Gender Identity Not on file Sexual Orientation Not on file documented as of this encounter Miscellaneous Notes * Telephone Encounter - Venus Powell RN - 12/01/2019 10:51 AM CDT Carlos Mcgee was transferred to nd. He is demanding to speak to someone [...] also stated that he know that Lilian ZINC SKIMMER still is responsible for his care for 30 days. I tried to let him know that if his BP went down after a breathing treatment heprobably did not necessarily need another BP medication. He became upset and stated that he takes his BP in stores and that yesterday it was 153/96. He would like additional medication sent to [facility] in [place], [place]. Mallory in the Call Center stated [...]
--- OUTSIDE RECORDS SUMMARY | 2025-06-19 10:07 | XMS_ITS | Patient Health Record ---
Author Organization [facility] Address [address] [address] Care Team Providers Care Under Ground Miner Name Role Phone Charanjit Sheffield Primary Care [...] Once a day; Duration: 30 days Active Frlxkfno-Apnrogain-Cvirkqmc 0.1 % 1 application into the lower [...] complication (E11.69) Active confirmed Problem Mixed hyperlipidemia (581279292) Mixed hyperlipidemia (E78.2) Active confirmed Problem Nausea (059800844) Nausea (R11.0) Active confir med Problem Anxiety (09750470) Anxiety (F41.9) Active confi rmed Problem Gastroesophageal reflux disease without esophagitis (546621914) Gastroesophageal reflux disease without esophagitis (K21.9) Active confirmed Problem Mild intermittent asthma (512951511) Mild intermittent asthma without complication (J45.20) Active confirmed Problem Essential hypertension (37792892) Essential hypertension (I10) Active confirmed Problem Vertigo (934627730) Vertigo (R42) Active confir med Problem Neck pain (22428834) Neck pain (M54.2) Active confirmed Problem Abdominal pain (65773589) Abdominal pain (R10.9) Active confirmed Problem Depression (217709082) Depression (F32.9) Active confirmed Problem Cervical spondylosis (044038747) Cervical spondylosis (M47.812) Active confirmed Problem Pain in right arm (553831424) Right arm pain (M79.601) Active confirmed Problem Type II diabetes mellitus without complication (304269697) Type 2 diabetes mellitus without complication, without long-term current use of insulin (E11.9) Active confirmed Problem History of gastrointestinal disease (695523266) History of diverticulosis (Z87.19) Active confirmed Problem Allergic rhinitis (46656498) Allergic rhinitis due to other allergic trigger, unspecified seasonality (J30.89) Active confirmed Problem History of excision of intestinal structure (845637602) S/P cholecystectomy (Z90.49) Active confirmed Problem Recurrent major depression in remission (86881570) Recurrent major depressive disorder, in partial remission (F33.41) Active confirmed Problem Allergic rhinitis (78026928) Non-seasonal allergic rhinitis, unspecified trigger (J30.89) Active confirmed Problem Elevated liver enzymes level (039764129) Elevated LFTs (R79.89) Active confirmed Problem Pain in eye (18881781) Discomfort of left eye (H57.12) Active confirmed Plan Of Treatment No Information Insurance Providers Payer Name Payer Address Payer Phone Subscriber Number Group Number Insured Name Patient Relationship to Insured Coverage Start Date Coverage End Date [facility] [address] [id number] WADE KELLY Self - patient is the insured 9 Medical (General) History Medical History History ICD Code sinusitis Vertigo Asthma Sleep Apnea diverticulitis fatty liver 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
--- OUTSIDE RECORDS SUMMARY | 2025-06-19 10:07 | XMS_ITS | Encounter Summary ---
Author Organization [facility] Address [address] [facility] [place] [address] Care Team Providers Care Communications Scientist Name Role Phone Unavailable Primary Care Provider Unavailabl e Reason for Visit * Reason Onset Date Comments Medication Issue 10/24/2019 Encounter Details Date Type Department Care Team (Late st Contact Info) Description 10/24/2019 Telephone [facility] [address] [facility] [address] [place] [address] Radha Palafox APRN-CNP [address] OF [facility] [place] [address] Medication Issue Social History Tobacco Use Types Packs/Day Years Used Date Smoking Tobacco: Former Smokeless Tobacco: Never Alcohol Use Standard Drinks/Week Comments No 0 (1 standard drink = 0.6 oz pur e alcohol) Sex and Gender Information Value Date Recorded Sex Assigned at Not on file Legal Sex Male 6:27 AM FIRE CONTROL TECHNICIAN G Gender Identity Not on file Sexual Orientation Not on file documented as of this encounter Miscellaneous Notes * Telephone Encounter - Radha Palafox APRN-CNP - 10/24/2019 5:44 PM FIRE CONTROL TECHNICIAN G Called patient. Again talking about his urinary sx. Has consult with urology. What good is a consult going to do.. Upset he was given Tamsulosin due to sulfa allergy. Told him he could take this. Claims pharmacist would not fill. Does not know what good I am to him. Wants new male doctor which he requested over weekend Suspect he will not be happy with anyone he gets. MELISA Diaz CONTROL TECHNICIAN G * Telephone Encounter - Mallory Flores RN - 10/24/2019 2:47 PM CST Patient calling again today He is complaining of being lightheaded. Please see below message CONTROL TECHNICIAN G * Telephone Encounter - Mallory Flores RN - 10/24/2019 2:27 PM CST Patient calling and he is out xanax and psychiatrist will not refill He wants to speak with you about this [phone] CONTROL TECHNICIAN G documented in this encounter Plan of Treatment Not on file documented as of this encounter Visit Diagnoses Not on filedocumented in this encounter
--- OUTSIDE RECORDS SUMMARY | 2025-06-19 10:07 | XMS_ITS | Encounter Summary ---
Author Organization [facility] Address [address] [facility] [place] [address] Care Team Providers Care Tag Maker Name Role Phone Unavailable Primary Care Provider Unavailabl e Reason for Visit * Reason Onset Date Comments Order 08/02/2019 Encounter Details Date Type Department Care Team (Late st Contact Info) Description 08/02/2019 Telephone [facility] [address] [facility] [address] [place] [address] Radha Palafox, TAX MAP TECHNICIAN-MAIL LIST LIBRARIAN [address] OF [facility] [place] [phone] Order Social History Tobacco Use Types Packs/Day Years Used Date Smoking Tobacco: Former Smokeless Tobacco: Never Alcohol Use Standard Drinks/Week Comments No 0 (1 standard drink = 0.6 oz pur e alcohol) Sex and Gender Information Value Date Recorded Sex Assigned at Not on file Legal Sex Male 6:27 AM RELAY ASSOCIATE Gender Identity Not on file Sexual [...] Sleep study ordered and referral to GI. Y ASSOCIATE documented in this encounter Plan of Treatment Not on file documented as of this encounter Visit Diagnoses Diagnosis Loud snoring- Primary Class 3 severe obesity with serious comorbidity in adult, unspecified BMI, unspecified obesity type (HCC) Sleep apnea, unspecified type documented in this encounter
--- OUTSIDE RECORDS SUMMARY | 2025-06-19 10:08 | XMS_ITS | Clinical Summary ---
Author Organization [facility] Address [address] [place] [address] Phone Care Team Providers Care Assistant Winemaker Name Role Phone Unavailable Primary Care Provider [...]
--- OUTSIDE RECORDS SUMMARY | 2025-06-19 10:08 | XMS_ITS | Clinical Summary ---
Author Organization [facility] Address [facility] [place] [address] Care Team Providers Care Paper Spooler Name Role Phone None, Provider MD Primary [...] COVID-19 Vaccine (1 - 2023-2 5 season) 2025 Influenza Adult (#1) 2025 Hepatitis C Completed 10/20/2019 Meningococcal B Vaccine Aged Out No l onger eligible based on patient's age to complete this topic Meningococcal Vaccine Aged Out No mode jeremiah eligible based on patient's age to complete this topic RSV Immunizations Under 20 Months Aged Out No longer eligible based on patient's age to complete this topic Insurance [employer] Care Teams Paper Spooler Relationship Specialty Start Date End Date None, Provider, PCP - General 12/31/19
--- OUTSIDE RECORDS SUMMARY | 2025-06-19 10:08 | XMS_ITS | Patient Health Record ---
Author Organization [facility] [employer] Address [address] [facility] [address] [place] [address] Care Team Providers Care Cold Strip Feeder Name Role Phone John Mtz Unavailable [phone] Reason For Referral No Information Plan Of Treatment No Information
--- OUTSIDE RECORDS SUMMARY | 2025-06-19 10:08 | XMS_ITS | Encounter Summary ---
Author Organization [employer] Address 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
--- OUTSIDE RECORDS SUMMARY | 2025-06-19 10:08 | XMS_ITS | Encounter Summary ---
Author Organization [employer] Address 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
--- OUTSIDE RECORDS SUMMARY | 2025-06-19 10:08 | XMS_ITS | Encounter Summary ---
Author Organization [employer] Address 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
--- OUTSIDE RECORDS SUMMARY | 2025-06-19 10:08 | XMS_ITS | Encounter Summary ---
Author Organization [employer] Address 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
--- OUTSIDE RECORDS SUMMARY | 2025-06-19 10:08 | XMS_ITS | Encounter Summary ---
Author Organization [employer] Address [address] [place] [address] Care Team Providers Care Compensation Agent Name Role Phone Howard Trinidad MD Primary Care Provider Un available Encounter Details Date Type Department Care Team (Late st Contact Info) Description 04/27/2009 Emergency [facility] Er, Authorized P NO ADDRESS ON FILE Balta Sahu MD [address] [place] [address] [place] [address] Edin Marcum MD [facility] [place] [address] Social History Tobacco Use Types Packs/Day Years Used Date Smoking Tobacco: Never Assessed Sex and Gender Information Value Date Recorded Sex Assigned at Not on file 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 FINDINGS: The heart and mediastinum are normal. There is no infiltrate, contusion, pneumothorax or pleural fluid. The visualized bony thorax is normal. IMPRESSION: Normal AP chest. . Dictated by: LEANDER GORDON 04/27/2009 07:51 Electronically signed by: LEANDER GORDON 04/27/2009 08:07 Transcribed: 04/27/2009 07:56 SMM Procedure Note Leander Gordon - 04/27/2009 [address] [place] [address] Admit Date: 04/27/2009 CARLOS KELLY Sex: M Admit Prov: BALTA SAHU Date: 1970 Primary Care Prov: CMRN: [id number] [facility] [address] [place] [address] IMAGING SERVICES Ordering Prov: N/A Interpretation PORTABLE [...] CDT) MCH 27.8 27.2 - 32.6 pg [facility] MPV 9.7 9.3 - 12.4 fL [facility] HEMATOCRIT 42.4 40.0 - 48.0 % [facility] RDW-STDEV 41.9 37.1 - 48.7 fL [facility] RBC 5.29 4.50 - 5.40 M/uL [facility] MCHC 34.7 31.5 - 35.5 % [facility] MCV 80.2(L) 82.0 - 99.0 fL [facility] PLATELETS 187 140 - 350 K/uL [facility] HEMOGLOBIN 14.7 13.6 - 16.5 g/dL [facility] RDW 14.7(H) 11.5 - 14.5 % [facility] WBC 7.2 4.0 - 9.8 K/uL [facility] BASOPHILS 0 0 - 2 % [facility] BASOPHILS ABSOLUTE 0.02 0.00 - 0.20 K/uL [facility] MONOCYTES 8 3 - 13 % [facility] MONOCYTE ABSOLUTE 0.56 0.10 - 1.30 K/uL [facility] NEUTROPHILS 56 45 - 70 % [facility] NEUTROPHIL ABSOLUTE 4.00 1.90 - 7.00 K/uL [facility] EOSINOPHILS 2 0 - 7 % [facility] EOSINOPHIL ABSOLUTE 0.16 0.00 - 0.70 K/uL [facility] LYMPHOCYTES 34 16 - 45 % [facility] LYMPHOCYTE ABSOLUTE 2.43 0.70 - 4.50 K/uL [facility] Blood specimen (specimen) 04/27/2009 12:08 AM CDT 04/27/2009 12:13 AM CDT Edin Marcum MD HEMATOLOGY ORDERABLES Edited Performing Organization Address [facility] Co de Phone Number [facility] CLIA# [id number] [address] [place] [address] * CARDIAC ENZYMES (04/27/2009 12:08 AM CDT) Pathologist [facility] TROPONIN T <0.01 <=0.03 ng/mL [facility] TROPONIN T INTERP Negative [facility] Blood specimen (specimen) 04/27/2009 12:08 AM CDT 04/27/2009 12:13 AM CDT Edin Marcum MD CHEMISTRY ORDERABLES Edited Performing Organization Address [facility] de Phone Number [facility] CLIA# [id number] [address] [place] [address] * (ABNORMAL) COMPREHENSIVE METABOLIC PANEL (04/27/2009 12:08 AM CDT) CREATININE 0.92 0.67 - 1.17 mg/dL [facility] ALT 130(H) 0 - 41 U/L [facility] SODIUM 141 135 - 145 mmol/L [facility] ALKALINE PHOSPHATASE 71 40 - 129 U/L [facility] CO2 32(H) 22 - 30 mmol/L [facility] BILIRUBIN TOTAL 1.2(H) 0.2 - 1.0 mg/dL [facility] POTASSIUM 3.7 3.5 - 4.9 mmol/L [facility] TOTAL PROTEIN 8.3 6.3 - 8.6 g/dL [facility] GLUCOSE 81 65 - 99 mg/dL [facility] AST 118(H) 12 - 38 U/L [facility] BUN 10 6 - 20 mg/dL [facility] CALCIUM 9.7 8.6 - 10.2 mg/dL [facility] ALBUMIN 4.6 3.4 - 4.8 g/dL [facility] CHLORIDE 101 96 - 108 mmol/L [facility] GFR, >60 >=60 mL/min/1. 7 sq meter [facility] GFR >60 >=60 mL/min/1. 7 sq meter [facility] Comment: Modification of Diet in Renal Disease (MDRD) study formula. Estimated GFR rate interpretative information for both Americans and non- Americans is available on the [facility] at: [email or web address] Select: Lab Policies and Procedures Select: Reference Ranges - GFR Blood specimen (specimen) 04/27/2009 12:08 AM CDT 04/27/2009 12:13 AM CDT us Edin Marcum MD CHEMISTRY ORDERABLES Edited [facility] CLIA# [id number] [address] [place] [address] documented in this encounter Visit Diagnoses Not on filedocumented in this encounter Care Teams Compensation Agent Relationship Specialty Start Date End Date Howard Trinidad MD PCP - General Family Practice 01/25/16 01/26/16 documented as of this encounter
--- OUTSIDE RECORDS SUMMARY | 2025-06-19 10:08 | XMS_ITS | Encounter Summary ---
Author Organization [facility] Address [address] [place] [address] Care Team Providers Care Boat Cleaning Supervisor Name Role Phone Howard Trinidad MD Primary Care Provider Un available Encounter Details Date Type Department Care Team (Late st Contact Info) Description 07/01/2006 Outpatient Historical [facility] Support Serv. ([facility]) [address] 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
--- OUTSIDE RECORDS SUMMARY | 2025-06-19 10:08 | XMS_ITS | Encounter Summary ---
Author Organization [employer] Address [address] [place] [address] Care Team Providers Care Plant Utility Person Name Role Phone Howard Trinidad MD Primary Care Provider Un available Encounter Details Date Type Department Care Team (Late st Contact Info) Description 03/02/2005 Outpatient Historical [facility] Support Serv. ([facility]t [facility]) [address] 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
--- OUTSIDE RECORDS SUMMARY | 2025-06-19 10:08 | XMS_ITS | Encounter Summary ---
Author Organization [employer] Address 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
--- OUTSIDE RECORDS SUMMARY | 2025-06-19 10:08 | XMS_ITS | Encounter Summary ---
Author Organization [employer] Address 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
--- OUTSIDE RECORDS SUMMARY | 2025-06-19 10:08 | XMS_ITS | Encounter Summary ---
Author Organization [employer] Address 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
--- OUTSIDE RECORDS SUMMARY | 2025-06-19 10:08 | XMS_ITS | Encounter Summary ---
Author Organization [employer] Address 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
--- OUTSIDE RECORDS SUMMARY | 2025-06-19 10:08 | XMS_ITS | Encounter Summary ---
Author Organization [facility] Address [address] [place] [address] Care Team Providers Care Residential Caregiver Name Role Phone None, Provider Primary Care Provider Alisson oliva Encounter Details Date Type Department Care Team (Late st Contact Info) Description 01/04/2020 Telephone [facility] [place] [address] Lee Ann Aguilar LCSW Social [...] documented as of this encounter Care Teams Residential Caregiver Relationship Specialty Start Date End Date None, Provider, PCP - General 12/31/19 documented as of this encounter
--- OUTSIDE RECORDS SUMMARY | 2025-06-19 10:08 | XMS_ITS | Encounter Summary ---
Author Organization [employer] Address 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 Medications: [facility] review Medication reactions: epic review <<<<<<<< TRIAGE NOTE >>>>>>>> Triage Note: Art Specialist Seema Cueva added this note on Dec [...] they will have to speak with his creative arts therapist because he is upset with the lies [...] on filedocumented in this encounter Care Teams Project Architect Relationship Specialty Start Date End Date Howard Trinidad MD PCP - General Family Practice 01/25/16 01/26/16 documented as of this encounter
--- OUTSIDE RECORDS SUMMARY | 2025-06-19 10:08 | XMS_ITS | Encounter Summary ---
Author Organization [employer] Address 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
--- OUTSIDE RECORDS SUMMARY | 2025-06-19 10:08 | XMS_ITS | Encounter Summary ---
Author Organization [employer] Address 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
--- OUTSIDE RECORDS SUMMARY | 2025-06-19 10:08 | XMS_ITS | Encounter Summary ---
Author Organization [employer] Address 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
--- OUTSIDE RECORDS SUMMARY | 2025-06-19 10:08 | XMS_ITS | Encounter Summary ---
Author Organization [employer] Address 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
--- OUTSIDE RECORDS SUMMARY | 2025-06-19 10:08 | XMS_ITS | Encounter Summary ---
Author Organization [employer] Address 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
--- OUTSIDE RECORDS SUMMARY | 2025-06-19 10:08 | XMS_ITS | Encounter Summary ---
Author Organization [employer] Address 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 He indicated he had called PCP [...] Operations Relationship Specialty Start Date End Date Howard Trinidad MD PCP - General Family Practice 01/25/16 01/26/16 documented as of this encounter
--- OUTSIDE RECORDS SUMMARY | 2025-06-19 10:08 | XMS_ITS | Encounter Summary ---
Author Organization [employer] Address 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
--- OUTSIDE RECORDS SUMMARY | 2025-06-19 10:08 | XMS_ITS | Encounter Summary ---
Author Organization [employer] Address 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
[2025-06-19 10:14] LABS: Hematocrit 38.8 % (42.0-52.0); Hemoglobin 11.8 g/dL (14.0-18.0); Immature Granulocyte Percent A 0.2 % (0-0.5); Lymphocytes Absolute Auto 1.83 K/mm3 (0.9-3.2); Mean Corpuscular HGB Conc 30.4 g/dl (32-36); Mean Corpuscular Hemoglobin 21.0 pg (26-34); Mean Corpuscular Volume 69.0 fl (80-100); Nucleated Red Blood Cells Absolute Auto 0.000 K/mm3 (0.0-0.012); Nucleated Red Blood Cells Perc 0.0 % (0.0-0.2); Platelet Count Result 161 k/mm3 (150-375); Red Blood Count 5.62 M/mm3 (4.6-6.20); White Blood Count 6.1 K/mm3 (4.5-10.0)
[2025-06-19 10:24] LABS: Alanine Aminotransferase 25 U/L (6-50); Albumin Level 4.3 g/dL (3.5-5.1); Alkaline Phosphatase 59 U/L (38-126); Anion Gap 10 mmol/L (4-12); Aspartate Amino Transferase 29 U/L (17-59); Bilirubin,Total 1.6 mg/dL (0.2-1.3); Blood Urea Nitrogen 10 mg/dL (9-20); Calcium 8.7 mg/dL (8.4-10.2); Carbon Dioxide 28 mmol/L (22-30); Chloride 102 mmol/L (98-107); Estimated CRCL calculation 108 ml/min; Estimated Glomerular Filt Rate > 60; Glucose 109 mg/dL (65-110); Lipase 73 U/L (23-300); Potassium 3.2 mmol/L (3.4-5.0); Sodium 140 mmol/L (137-145); Total Protein 7.8 g/dL (6.3-8.2)
[2025-06-19 10:26] LABS: Add Urine Microscopic? YES; Appearance Urine Clear (Clear); Glucose Urine UA Negative (Negative); Leukocyte Esterase Ur Trace LEU/UL (Negative); Need Manual Microscopic Reviewed; Nitrate Urine Positive (Negative); Specific Grav Ur 1.018 (1.001-1.035)
[2025-06-19 10:35] LABS: Anisocytosis 1+; Schistocytes None Seen
--- OUTSIDE RECORDS SUMMARY | 2025-06-19 11:01 | XMS_ITS | Clinical Summary ---
Author Organization [employer] [id number] Address [address] [place] [address] Care Team Providers Care Academic Advising Director Name Role Phone Miscellaneous, Not In [...] pain and frequency. -See either PCP or keyboard instrument repairer to manage diabetes. -I told patient that if he fails this, we may need to look at further testing for penile pain. Patient verbalized understanding. OAB (overactive bladder) 11/09/2020 Assessment & Plan (11/13/2020 6:03 PM PILLING MACHINE OPERATOR): -Symptoms are suggestive of OAB. Prostate size [...] 11/09/2020 Assessment & Plan (11/09/2020 5:21 PM PILLING MACHINE OPERATOR): -Patient has history of diverticulitis, benign tumor [...] appointment. Assessment & Plan (11/09/2020 5:20 PM PILLING MACHINE OPERATOR): -CT showing non-obstructing stones in kidney. Patient [...] 0 Assessment & Plan (11/16/2019 4:14 PM PILLING MACHINE OPERATOR): Old psychiatrist, Dr Easley, in [place]. Rx'ed [...] 11/16/2019 Assessment & Plan (11/16/2019 4:11 PM PILLING MACHINE OPERATOR): Not taking meds as prescribed. Pt asked to leave before A1C could be tested. Severe obesity (BMI 35.0-35.9 with comorbidity) 11/16/2019 Assessment & Plan (11/16/2019 4:14 PM PILLING MACHINE OPERATOR): Body mass index is 35.12 kg/m . Unable to grief counsellor him given that he was escorted out. [...] (03/12/2017): Scheduled appointment with psychiatric, April 01, [facility] in [place]. Anxiety 03/12/2017 Obesity (BMI 30-39.9) 03/12/2017 Benzodiazepine [...] 11/09/2020 Assessment & Plan (11/16/2019 3:59 PM PILLING MACHINE OPERATOR): Severe with h/o panic attacks with xanax [...] research on prior controlled substance use on [facility]. While I was out of the [...] he wasn't able to see patients at [facility] because he got fired from the entire system. Wasn't able to see many doctors in the area because he had been fired. Encounters Date Type Department Care Team Description 05/28/2025 12:05 AM CDT - 05/28/2025 12:47 AM CDT Emergency [facility] Emergency Department [address] [place] [address] Encounter for medication refill (Primary Dx); Benzodiazepine dependence (HCC) Discharge Disposition: Discharge to home or self care 05/21/2025 4:51 PM CDT - 05/21/2025 7:22 PM CDT Emergency [facility] Emergency Department [address] [place] [address] Encounter for medication refill (Primary Dx); Benzodiazepine dependence (HCC) Discharge Disposition: Discharge to home or self care 05/16/2025 5:40 AM CDT - 05/16/2025 6:27 AM CDT Emergency [facility] Emergency Department [address] [place] [address] Cheko Romero MD RAKESH (generalized anxiety disorder) (Primary Dx); Medication refill Discharge Disposition: Discharge to home or self care 05/10/2025 4:01 AM CDT - 05/10/2025 4:39 AM CDT Emergency [facility] Emergency Department [address] [place] [address] Janae Liz MD Anxiety (Primary Dx); Drug-seeking behavior Discharge Disposition: Discharge to home or self care 04/27/2025 1:31 PM CDT - 04/27/2025 2:11 PM CDT Emergency [address] [address] Scabies (Primary Dx); Drug-seeking behavior Discharge Disposition: Discharge to home or self care 03/22/2025 8:44 AM CDT - 03/22/2025 9:32 AM CDT Emergency [facility] Emergency Department [address] [place] [address] Anxiety (Primary Dx); Benzodiazepine dependence (HCC) Discharge Disposition: Discharge to home or self care 03/22/2025 6:00 AM CDT - 03/22/2025 7:56 AM CDT Emergency [facility] Department [address] [place] [address] Nicole Mena MD Anxiety (Primary Dx) Discharge [...] on file Legal Sex Male 1:40 AM PILLING MACHINE OPERATOR Gender Identity Not on file [...] was last reviewed 2021. Testing performed by: [facility], [address] [place] [address]., [address] Blood 03/01/2025 7:26 PM CDT 03/01/2025 7:31 PM CDT Raza Bahena Jr., MD LAB BLOOD ORDERABLES Fi nal Result [facility] [address] [facility] Department of Laboratories [place], [place] [id number] * (ABNORMAL) Hemoglobin A1c (01/22/2020 9:58 AM CDT) Hemoglobin A1c % 6.2(H) 4.0 - 5.6 % [facility] Comment: ADA 2016 GUIDELINES: Initial Diagnostic Criteria HbA1c Result: Interpretation: <5.7% Normal 5.7-6.4% At risk for diabetes mellitus >=6.5% Consistent with diabetes mellitus Diabetes monitoring Target value (ADA Recommended) <7% 01/22/2020 9:58 AM CDT 01/22/2020 10:14 AM CDT Narrative Resulting Agency Comment CLI us Charanjit Sheffield MD LAB BLOOD ORDERABLES Final Result [address] [phone] * (ABNORMAL) Lipid panel (01/22/2020 9:58 AM CDT) Triglycerides 173(H) 0 - 149 mg/dL [facility] Comment: National Lipid Association/NCEP Guidelines: Normal < 150 mg/dL Borderline high 150-199 mg/dL High 200-499 mg/dL Very High >=500 mg/dL Cholesterol 152 0 - 199 mg/dL [facility] Comment: National Lipid Association/NCEP Guidelines: Desirable < 200 mg/dL Borderline high: 200-239 mg/dL High Risk: >=240 mg/dL HDL Cholesterol 22 mg/dL [facility] Comment: Reference Ranges: Males: >=40 mg/dL Females: >=50 mg/dL LDL Cholesterol, Calc 95 0 - 129 mg/dL [facility] Comment: National Lipid Association/NCEP Guidelines: Optimal < 100 mg/dL Near Optimal 100-129 mg/dL Borderline high 130-159 mg/dL High >=160 mg/dL Cholesterol/HDL Ratio 6.9 [facility] Comment: Optimal < 3.5:1 High > 5:1 01/22/2020 9:5 8 AM CDT 01/22/2020 10:14 AM CDT Narrative Resulting Agency Comment CLI us Charanjit Sheffield MD LAB BLOOD ORDERABLES Final Result [address] [phone] * COLONOSCOPY REPORT (07/01/2017) Anatomical Region Laterality Modality Other us Provider Scanning GI PROCEDURE ORDERABLES Edited Result - Final from Last 3 Months or Most Recently Relevant to Health Maintenance Insurance Member Subscriber Plan / Payer (Ef fective 2019-Present) Name:Carlos Mcgee Relation to Subscriber:Self Name:Carlos Mcgee Payer ID:[id number] (NAIC) Group ID:Not on file Type:MEDICAID RISK OTHER Address: ATTN: CLAIMS DEPT [address] [facility] [place] [id number] Care Teams Academic Advising Director Relationship Specialty Start Date End Date Unknown, Notinfile PCP - General 08/01/24 Miscellaneous, Not In File 11/16/19
--- OUTSIDE RECORDS SUMMARY | 2025-06-19 11:02 | XMS_ITS | Encounter Summary ---
Author Organization [employer] Address [address] [place] [address] Care Team Providers Care Customer Sales Consultant Name Role Phone Howard Trinidad MD [...] on file Legal Sex Male 4:57 AM INFANTRY UNIT LEADER Gender Identity Not on file Sexual Orientation Not on file documented as of this encounter Plan of Treatment Not on file documented as of this encounter Visit Diagnoses Diagnosis Other general symptoms(780.99)- Primary Other general symptoms documented in this encounter Care Teams Customer Sales Consultant Relationship Specialty Start Date End Date Howard Trinidad MD PCP - General Family Practice 01/25/16 01/26/16 documented as of this encounter
--- OUTSIDE RECORDS SUMMARY | 2025-06-19 11:02 | XMS_ITS | Encounter Summary ---
Author Organization [facility] Address [address] [place] [address] Care Team Providers Care Masking Machine Operator Name Role Phone Unavailable Primary Care Provider Unavailabl e Reason for Visit * Reason Onset Date Comments Blood Pressure 12/01/2019 Encounter Details Date Type Department Care Team (Late st Contact Info) Description 12/01/2019 Nurse Triage [facility] Internal Medicine [address] [facility] [address] [place] [address] Radha Palafox, PRIMARY HEALTH CARE NURSE-HEAD HOLDER [address] OF [facility] [place] [id number] Blood Pressure Social History Tobacco Use Types Packs/Day Years Used Date Smoking Tobacco: Former Smokeless Tobacco: Never Alcohol Use Standard Drinks/Week Comments No 0 (1 standard drink = 0.6 oz pur e alcohol) Sex and Gender Information Value Date Recorded Sex Assigned at Not on file Legal Sex Male 6:27 AM RING STAMPER Gender Identity Not on file Sexual Orientation Not on file documented as of this encounter Miscellaneous Notes * Telephone Encounter - Mallory Flores RN - 12/01/2019 10:17 AM CDT Reason for Disposition [1] Systolic BP >= 160 OR Diastolic >= 100 AND [2] cardiac or neurologic symptoms (e.g., chest pain, difficulty breathing, unsteady gait, blurred vision) Protocols used: HIGH BLOOD [id number] Patient given ER disposition, patient verbalizes understanding. [...]
--- OUTSIDE RECORDS SUMMARY | 2025-06-19 11:02 | XMS_ITS | Encounter Summary ---
Author Organization [facility] Address [address] [place] [address] Care Team Providers Care Hot Dip Galvanizer Name Role Phone Unavailable Primary Care Provider Unavailabl e Encounter Details Date Type Department Care Team (Late st Contact Info) Description 09/08/2019 Telephone [facility] [address] [facility] [address] [place] [address] Radha Palafox APRN-CNP [address] OF [facility] [place] [address] Social History Tobacco Use Types Packs/Day Years Used Date Smoking Tobacco: Former Smokeless Tobacco: Never Alcohol Use Standard Drinks/Week Comments No 0 (1 standard drink = 0.6 oz pur e alcohol) Sex and Gender Information Value Date Recorded Sex Assigned at Not on file Legal Sex Male 6:27 AM DIVERSIFIED CROPS FARMER Gender Identity Not on file Sexual Orientation [...] reluctantly let me connect him to scheduling RSIFIED CROPS FARMER * Telephone Encounter - Radha Palafox APRN-CNP - 09/08/2019 1:59 PM DIVERSIFIED CROPS FARMER Please tell him that he needs to elevate his legs. I can not do anything for him over the phone. MELISA Diaz RSIFIED CROPS FARMER * Telephone Encounter - Mallory Flores RN [...] He would like you to call him [phone] RSIFIED CROPS FARMER documented in this encounter Plan of Treatment Not on file documented as of this encounter Visit Diagnoses Not on filedocumented in this encounter
--- OUTSIDE RECORDS SUMMARY | 2025-06-19 11:02 | XMS_ITS | Encounter Summary ---
Author Organization [facility] Address [address] [facility] [place] [address] Care Team Providers Care Psychologist Personnel Name Role Phone Unavailable Primary Care Provider Unavailabl e Reason for Visit * Reason Onset Date Comments Erroneous encounter-disregard 10/20/2019 Encounter Details Date Type Department Care Team (Late st Contact Info) Description 10/20/2019 Telephone [facility] [address] [facility] [address] [place] [address] Radha Palafox, CONTAMINATION CONSULTANT-VISUALIZATION DEVELOPER [address] OF [facility] [place] [id number] Erroneous encounter-disregard Social History Tobacco Use Types Packs/Day Years Used Date Smoking Tobacco: Former Smokeless Tobacco: Never Alcohol Use Standard Drinks/Week Comments No 0 (1 standard drink = 0.6 oz pur e alcohol) Sex and Gender Information Value Date Recorded Sex Assigned at Not on file Legal Sex Male 6:27 AM STILL OPERATOR GIN Gender Identity Not on file Sexual Orientation Not on file documented as of this encounter Miscellaneous Notes * Telephone Encounter - Lynne Mendes - 10/20/2019 10:46 AM CST err L OPERATOR GIN documented in this encounter Plan of Treatment Not on file documented as of this encounter Visit Diagnoses Not on filedocumented in this encounter
--- OUTSIDE RECORDS SUMMARY | 2025-06-19 11:02 | XMS_ITS | Clinical Summary ---
Author Organization [facility] Address [address] [place] [address] Care Team Providers Care Agriculture Department Chair Name Role Phone Unavailable Primary Care Provider [...] None 6 Active fluticasone (FLONASE) 50 mcg/spray [place], Suspension Administer 2 Sprays in each nostril [...] file Legal Sex Male 4:57 AM CHIEF AIRLINE RADIO OPERATOR Gender Identity Not on file Sexual Orientation Not on file Occupation Industry Job Start Date Job End Date Not on file Not on file Not on file Not on file Not on file Not on file Not on file Not on file Last Filed Vital Signs Vital Sign Reading Time Taken Comments Blood Pressure 152/94 11/18/2019 7:07 AM CHIEF AIRLINE RADIO OPERATOR Pulse 66 11/18/2019 7:07 AM CHIEF AIRLINE RADIO OPERATOR Temperature 36.7 C (98.1 F) 11/18/2019 5:34 AM CHIEF AIRLINE RADIO OPERATOR Respiratory Rate 18 11/18/2019 7:07 AM CHIEF AIRLINE RADIO OPERATOR Oxygen Saturation 98% 11/18/2019 7:07 AM CHIEF AIRLINE RADIO OPERATOR Inhaled Oxygen Concentration - - Weight 120.2 kg (265 lb) 11/18/2019 5:34 AM CHIEF AIRLINE RADIO OPERATOR Height 188 cm (6' 2) 11/18/2019 5:34 AM CHIEF AIRLINE RADIO OPERATOR Body Mass Index 34.02 11/18/2019 5:34 AM CHIEF AIRLINE RADIO OPERATOR Plan of Treatment Health Maintenance Due [...] % 07/02/2015 5:25 PM CDT [facility]. AVG GLUCOSE, A1C 140 mg/dL 07/02/2015 5:25 PM CDT [facility] Blood Venipuncture - Floor Collect / Unknown 07/02/2015 2:10 AM CDT 07/02/2015 2:11 AM CDT Narrative [facility] - 07/02/2015 5:25 PM CDT Based on the ADAG study equation. us Iwona Arteaga APN CHEMISTRY ORDERABLES Final R esult [facility] CLIA# [id number] [address] [place] [address] from Last 3 Months or Most Recently Relevant to Health Maintenance Insurance MEDICAID Advance Directives For more information, please contact: [phone] * Full Code (Latest Code Status on File) Date Activated Date Inactivated Comments 07/02/2015 8:36 AM 07/02/2015 8:02 PM * Full Code Date Activated Date Inactivated Comments 08/28/2014 2:37 PM 08/28/2014 5:13 PM
--- OUTSIDE RECORDS SUMMARY | 2025-06-19 11:02 | XMS_ITS | Encounter Summary ---
Author Organization [employer] Address [address] [place] [address] Care Team Providers Care Squaring Shear Operator Name Role Phone Howard Trinidad MD Primary Care Provider Un available Encounter Details Date Type Department Care Team (Late st Contact Info) Description 04/27/2009 Emergency [facility] Er, Authorized P NO ADDRESS ON FILE Balta Sahu MD [address] [place] [address] [place] [address] Edin Marcum MD [facility] [place] [address] Social History Tobacco Use Types Packs/Day Years Used Date Smoking Tobacco: Never Assessed Sex and Gender Information Value Date Recorded Sex Assigned at Not on file Legal Sex Male 4:57 AM DEALER RELATIONSHIP MANAGER Gender Identity Not on file Sexual [...] AM CDT Narrative 04/27/2009 8:09 AM CDT [place] [address], [place] [address] Admit Date: 04/27/2009 CARLOS KELLY Sex: M Admit Prov: BALTA SAHU Date: 1970 Primary Care Prov: CMRN: [id number] [facility] [address] [place] [address] IMAGING SERVICES Ordering Prov: N/A Accession Number: [id number] Interpretation PORTABLE AP CHEST, 04/27/2009 INDICATION: Chest pain. FINDINGS: The heart and mediastinum are normal. There is no infiltrate, contusion, pneumothorax or pleural fluid. The visualized bony thorax is normal. IMPRESSION: Normal AP chest. . Dictated by: LEANDER GORDON 04/27/2009 07:51 Electronically signed by: LEANDER GORDON 04/27/2009 08:07 Transcribed: 04/27/2009 07:56 SMM Procedure Note Leander Gordon - 04/27/2009 [place] [address] [place], [place] [address] Admit Date: 04/27/2009 CARLOS KELLY Sex: M Admit Prov: BALTA SAHU Date: 1970 Primary Care Prov: CMRN: [id number] [facility] [address] [place] [address] IMAGING SERVICES Ordering Prov: N/A Interpretation PORTABLE [...] CDT) MCH 27.8 27.2 - 32.6 pg [facility] MPV 9.7 9.3 - 12.4 fL [facility] HEMATOCRIT 42.4 40.0 - 48.0 % [facility] RDW-STDEV 41.9 37.1 - 48.7 fL [facility] RBC 5.29 4.50 - 5.40 M/uL [facility] MCHC 34.7 31.5 - 35.5 % [facility] MCV 80.2(L) 82.0 - 99.0 fL [facility] PLATELETS 187 140 - 350 K/uL [facility] HEMOGLOBIN 14.7 13.6 - 16.5 g/dL [facility] RDW 14.7(H) 11.5 - 14.5 % [facility] WBC 7.2 4.0 - 9.8 K/uL [facility] BASOPHILS 0 0 - 2 % [facility] BASOPHILS ABSOLUTE 0.02 0.00 - 0.20 K/uL [facility] MONOCYTES 8 3 - 13 % [facility] MONOCYTE ABSOLUTE 0.56 0.10 - 1.30 K/uL [facility] NEUTROPHILS 56 45 - 70 % [facility] NEUTROPHIL ABSOLUTE 4.00 1.90 - 7.00 K/uL [facility] EOSINOPHILS 2 0 - 7 % [facility] EOSINOPHIL ABSOLUTE 0.16 0.00 - 0.70 K/uL [facility] LYMPHOCYTES 34 16 - 45 % [facility] LYMPHOCYTE ABSOLUTE 2.43 0.70 - 4.50 K/uL [facility] Blood specimen (specimen) 04/27/2009 12:08 AM CDT 04/27/2009 12:13 AM CDT Edin Marcum MD HEMATOLOGY ORDERABLES Edited Performing Organization Address [facility] Co de Phone Number [facility] CLIA# [id number] [address] [place] [address] * CARDIAC ENZYMES (04/27/2009 12:08 AM CDT) Pathologist [facility] TROPONIN T <0.01 <=0.03 ng/mL [facility] TROPONIN T INTERP Negative [facility] Blood specimen (specimen) 04/27/2009 12:08 AM CDT 04/27/2009 12:13 AM CDT Edin Marcum MD CHEMISTRY ORDERABLES Edited Performing Organization Address [facility] de Phone Number [facility] CLIA# [id number] [address] [place] [address] * (ABNORMAL) COMPREHENSIVE METABOLIC PANEL (04/27/2009 12:08 AM CDT) CREATININE 0.92 0.67 - 1.17 mg/dL [facility] ALT 130(H) 0 - 41 U/L [facility] SODIUM 141 135 - 145 mmol/L [facility] ALKALINE PHOSPHATASE 71 40 - 129 U/L [facility] CO2 32(H) 22 - 30 mmol/L [facility] BILIRUBIN TOTAL 1.2(H) 0.2 - 1.0 mg/dL [facility] POTASSIUM 3.7 3.5 - 4.9 mmol/L [facility] TOTAL PROTEIN 8.3 6.3 - 8.6 g/dL [facility] GLUCOSE 81 65 - 99 mg/dL [facility] AST 118(H) 12 - 38 U/L [facility] BUN 10 6 - 20 mg/dL [facility] CALCIUM 9.7 8.6 - 10.2 mg/dL [facility] ALBUMIN 4.6 3.4 - 4.8 g/dL [facility] CHLORIDE 101 96 - 108 mmol/L [facility] GFR, >60 >=60 mL/min/1. 7 sq meter [facility] GFR >60 >=60 mL/min/1. 7 sq meter [facility] Comment: Modification of Diet in Renal Disease (MDRD) study formula. Estimated GFR rate interpretative information for both Americans and non- Americans is available on the [facility] Intranet at: [email or web address] Select: Lab Policies and Procedures Select: Reference Ranges - GFR Blood specimen (specimen) 04/27/2009 12:08 AM CDT 04/27/2009 12:13 AM CDT us Edin Marcum MD CHEMISTRY ORDERABLES Edited [facility] CLIA# [id number] [address] [place] [address] documented in this encounter Visit Diagnoses Not on filedocumented in this encounter Care Teams Squaring Shear Operator Relationship Specialty Start Date End Date Howard Trinidad MD PCP - General Family Practice 01/25/16 01/26/16 documented as of this encounter
--- OUTSIDE RECORDS SUMMARY | 2025-06-19 11:02 | XMS_ITS | Encounter Summary ---
Author Organization [employer] Address [address] [place] [address] Care Team Providers Care Retail Merchandiser Technician Name Role Phone Howard Trinidad MD Primary Care Provider Un available Encounter Details Date Type Department Care Team (Late st Contact Info) Description 11/22/2007 Emergency [facility] Er, Authorized P NO ADDRESS ON FILE Arie Justice MD [address] [place] [address] [place] [address] Social History Tobacco Use Types Packs/Day Years Used Date Smoking Tobacco: Never Assessed Sex and Gender Information Value Date Recorded Sex Assigned at Not on file Legal Sex Male 4:57 AM COMMERCIAL LOAN SPECIALIST Gender Identity Not on file Sexual Orientation Not on file documented as of this encounter Plan of Treatment Not on file documented as of this encounter Visit Diagnoses Not on filedocumented in this encounter Care Teams Retail Merchandiser Technician Relationship Specialty Start Date End Date Howard Trinidad MD PCP - General Family Practice 01/25/16 01/26/16 documented as of this encounter
--- OUTSIDE RECORDS SUMMARY | 2025-06-19 11:02 | XMS_ITS | Encounter Summary ---
Author Organization [employer] Address [address] [place] [address] Care Team Providers Care Tobacco Dipper Name Role Phone Howard Trinidad MD Primary Care Provider Un available Encounter Details Date Type Department Care Team (Late st Contact Info) Description 07/11/2008 Emergency [facility] Er, Authorized P NO ADDRESS ON FILE Ryland Virgen MD [address] [place] [address] Social History Tobacco Use Types Packs/Day Years Used Date Smoking Tobacco: Never Assessed Sex and Gender Information Value Date Recorded Sex Assigned at Not on file Legal Sex Male 4:57 AM ROUTER TENDER Gender Identity Not on file Sexual Orientation Not on file documented as of this encounter Plan of Treatment Not on file documented as of this encounter Visit Diagnoses Not on filedocumented in this encounter Care Teams Tobacco Dipper Relationship Specialty Start Date End Date Howard Trinidad MD PCP - General Family Practice 01/25/16 01/26/16 documented as of this encounter
--- OUTSIDE RECORDS SUMMARY | 2025-06-19 11:02 | XMS_ITS | Encounter Summary ---
Author Organization [employer] Address [address] [place] [address] Care Team Providers Care Reordering Clerk Name Role Phone Howard Trinidad MD [...] on file Legal Sex Male 4:57 AM ALL AROUND PATTERNMAKER Gender Identity Not on file Sexual Orientation Not on file documented as of this encounter Plan of Treatment Not on file documented as of this encounter Visit Diagnoses Diagnosis Depressive disorder, not elsewhere classified- Primary documented in this encounter Care Teams Reordering Clerk Relationship Specialty Start Date End Date Howard Trinidad MD PCP - General Family Practice 01/25/16 01/26/16 documented as of this encounter
--- OUTSIDE RECORDS SUMMARY | 2025-06-19 11:02 | XMS_ITS | Encounter Summary ---
Author Organization [employer] Address [address] [place] [address] Care Team Providers Care Aurist Name Role Phone Howard Trinidad MD Primary Care Provider Un available Encounter Details Date Type Department Care Team (Late st Contact Info) Description 02/23/2007 Emergency [facility] Ian Gauthier [address] [place] [address] Er, Authorized P NO ADDRESS ON FILE Anxiety State, Unspecified (Primary Dx) Social History Tobacco Use Types Packs/Day Years Used Date Smoking Tobacco: Never Assessed Sex and Gender Information Value Date Recorded Sex Assigned at Not on file Legal Sex Male 4:57 AM CLERK TO JUSTICE Gender Identity Not on file Sexual Orientation Not on file documented as of this encounter Plan of Treatment Not on file documented as of this encounter Visit Diagnoses Diagnosis Anxiety state, unspecified- Primary documented in this encounter Care Teams Aurist Relationship Specialty Start Date End Date Howard Trinidad MD PCP - General Family Practice 01/25/16 01/26/16 documented as of this encounter
--- OUTSIDE RECORDS SUMMARY | 2025-06-19 11:02 | XMS_ITS | Encounter Summary ---
Author Organization [facility] Address [address] [facility] [place] [address] Care Team Providers Care Business Controller Name Role Phone Unavailable Primary Care Provider Unavailabl e Reason for Visit * Reason Onset Date Comments Med Question 10/18/2019 Med Question 10/19/2019 Order 10/20/2019 XRAY Follow-up 10/20/2019 Encounter Details Date Type Department Care Team (Late st Contact Info) Description 10/18/2019 Telephone [facility] [address] [address] Radha Palafox, KIER TENDER-TIME STUDY CLERK [address] OF [facility] [id number] Med Question; Med Question; Order (XRAY); Follow-up Social History Tobacco Use Types Packs/Day Years Used Date Smoking Tobacco: Former Smokeless Tobacco: Never Alcohol Use Standard Drinks/Week Comments No 0 (1 standard drink = 0.6 oz pur e alcohol) Sex and Gender Information Value Date Recorded Sex Assigned at Not on file Legal Sex Male 6:27 AM SLABBER LIGHT Gender Identity Not on file Sexual Orientation Not on file documented as of this encounter Miscellaneous Notes * Telephone Encounter - Remedios Catalan LPN - 10/20/2019 2:05 PM SLABBER LIGHT Pt came to 207 window. Pt is demanding xrays be done before his appointment. Pt is demanding that the nurse call me about this. I came early to have this done. I thought you people were here to helppatients. I want this done before the appointment because I want the results now. BER LIGHT * Telephone Encounter - Lynne Mendes - 10/20/2019 1:47 PM CST Upon chart review, no new update message from BOOT AND SADDLE REPAIR PERSON [employer] or xray order in system at this time. Outbound to pt to inform [place] called pt to inform of above update and pt verbalized understanding. Pt reports he [facility] at [facility] nowand is going to go to office to see if can get an order for an Xray and then go to the lab to get labs drawn. No further questions or concerns at this time. CB# [phone] (home) Routed to provider for further review Routed to [facility] Nurse Communication for further review BER LIGHT * Telephone Encounter - Lynne Mendes - 10/20/2019 12:35 PM CST Upon chart review, [place] checking for update from VENTURA Sheldonchen to c/b pt. As of this time, no new update from VENTURA Palafox. Will continue to monitor for update. BER LIGHT * Telephone Encounter - Lynne Mendes - 10/20/2019 10:54 AM CST Outbound to [facility] Venus - unable to reach Upon chart review, Liz Catalan forwarded message to VENTURA Palafox for review. BER LIGHT * Telephone Encounter - Lynne Mendes - 10/20/2019 9:54 AM CST Pt calling in b/c he is coming in to office today for OV w/ BOOT AND SADDLE REPAIR PERSON [employer] @ 3:20pm and requesting an xray for kidney/left sided pain. Pt reports forgot to ask BOOT AND SADDLE REPAIR PERSON [employer] yesterday during phone conversation for xray and is coming into city and would like to get xray before OV today so BOOT AND SADDLE REPAIR PERSON Vivienne canbe able to read xray before [...] needmore than 20min w/ the doctor. CB# [phone] (home) Routed to provider for further review HIGH PRIORITY BER LIGHT * Telephone Encounter - Radha Palafox APRN-CNP - 10/19/2019 1:18 PM SLABBER LIGHT Phone call--multiple vague complaints of not feeling [...] he will keep appt tomorrow. MELISA Diaz BER LIGHT * Telephone Encounter - Jovan Grewal - [...] with the provider today, call back number [phone] provided Message routed to provider BER LIGHT * Telephone Encounter - Mallory Flores RN [...] like this he had to take xanax. [phone] BER LIGHT documented in this encounter Plan of Treatment Not on file documented as of this encounter Visit Diagnoses Not on filedocumented in this encounter
--- OUTSIDE RECORDS SUMMARY | 2025-06-19 11:02 | XMS_ITS | Encounter Summary ---
Author Organization [facility] Address [address] [place] [address] Care Team Providers Care Tyre Finisher And Examiner Name Role Phone None, Provider Primary Care Provider Alisson oliva Encounter Details Date Type Department Care Team (Late st Contact Info) Description 01/04/2020 Telephone [facility] [place] [address] Lee Ann Aguilar LCSW Social [...] documented as of this encounter Care Teams Tyre Finisher And Examiner Relationship Specialty Start Date End Date None, Provider, PCP - General 12/31/19 documented as of this encounter
--- OUTSIDE RECORDS SUMMARY | 2025-06-19 11:02 | XMS_ITS | Encounter Summary ---
Author Organization [employer] Address [address] [place] [address] Care Team Providers Care Gambling Dealer Name Role Phone Howard Trinidad MD Primary Care Provider Un available Encounter Details Date Type Department Care Team (Late st Contact Info) Description 03/02/2005 Outpatient Historical [facility] (Adt Cardiology[facility]) [address] [place] [address] Vignesh Gurrola MD NO ADDRESS ON FILE Social History Tobacco Use Types Packs/Day Years Used Date Smoking Tobacco: Never Assessed Sex and Gender Information Value Date Recorded Sex Assigned at Not on file Legal Sex Male 4:57 AM BLIND ESCORT Gender Identity Not on file Sexual Orientation Not on file documented as of this encounter Plan of Treatment Not on file documented as of this encounter Visit Diagnoses Not on filedocumented in this encounter Care Teams Gambling Dealer Relationship Specialty Start Date End Date Howard Trinidad MD PCP - General Family Practice 01/25/16 01/26/16 documented as of this encounter
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
--- OUTSIDE RECORDS SUMMARY | 2025-06-19 11:02 | XMS_ITS | Encounter Summary ---
Author Organization [employer] Address [address] [place] [address] Care Team Providers Care Third Rigger Name Role Phone Howard Trinidad MD Primary [...] on file Legal Sex Male 4:57 AM PASTORAL COUNSELOR Gender Identity Not on file Sexual Orientation Not on file documented as of this encounter Plan of Treatment Not on file documented as of this encounter Visit Diagnoses Diagnosis Anxiety state, unspecified- Primary documented in this encounter Care Teams Third Rigger Relationship Specialty Start Date End Date Howard Trinidad MD PCP - General Family Practice 01/25/16 01/26/16 documented as of this encounter
--- OUTSIDE RECORDS SUMMARY | 2025-06-19 11:02 | XMS_ITS | Encounter Summary ---
Author Organization [facility] Address [address] [facility] [place] [address] Care Team Providers Care Biofuels Plant Manager Name Role Phone Unavailable Primary Care Provider Unavailabl e Reason for Visit * Reason Onset Date Comments Nausea 10/02/2019 Cramps 10/02/2019 Pain Abdominal 10/02/2019 Encounter Details Date Type Department Care Team (Late st Contact Info) Description 10/02/2019 Telephone [facility] [address] [facility] [address] [place] [address] Radha Palafox, COAL PICKER-EMBALMER/FUNERAL DIRECTOR [address] OF [facility] [place] [phone] Nausea; Cramps; Pain Abdominal Social History Tobacco Use Types Packs/Day Years Used Date Smoking Tobacco: Former Smokeless Tobacco: Never Alcohol Use Standard Drinks/Week Comments No 0 (1 standard drink = 0.6 oz pur e alcohol) Sex and Gender Information Value Date Recorded Sex Assigned at Not on file Legal Sex Male 6:27 AM CORRESPONDENCE REPRESENTATIVE Gender Identity Not on file Sexual [...] requesting GIM office call [facility], [phone] for ED report for VENTURA Palafox to [...] for c/b to discuss sx further. CB# [phone] Routed to provider for further review ESPONDENCE REPRESENTATIVE documented in this encounter Plan of Treatment Not on file documented as of this encounter Visit Diagnoses Not on filedocumented in this encounter
--- OUTSIDE RECORDS SUMMARY | 2025-06-19 11:02 | XMS_ITS | Encounter Summary ---
Author Organization [facility] Address [address] [place] [address] Care Team Providers Care Clinical Trials Assistant Name Role Phone Unavailable Primary Care Provider Unavailabl e Reason for Visit * Reason Onset Date Comments Order 08/02/2019 Encounter Details Date Type Department Care Team (Late st Contact Info) Description 08/02/2019 Telephone [facility] [address] [facility] [address] [place] [address] Radha Palafox, LEGAL ASSISTANT-GAS CHARGER [address] OF [facility] [place] [id number] Order Social History Tobacco Use Types Packs/Day Years Used Date Smoking Tobacco: Former Smokeless Tobacco: Never Alcohol Use Standard Drinks/Week Comments No 0 (1 standard drink = 0.6 oz pur e alcohol) Sex and Gender Information Value Date Recorded Sex Assigned at Not on file Legal Sex Male 6:27 AM WARD SERVICE SUPERVISOR Gender Identity Not on file [...] Sleep study ordered and referral to GI. SERVICE SUPERVISOR documented in this encounter Plan of Treatment Not on file documented as of this encounter Visit Diagnoses Diagnosis Loud snoring- Primary Class 3 severe obesity with serious comorbidity in adult, unspecified BMI, unspecified obesity type (HCC) Sleep apnea, unspecified type documented in this encounter
--- OUTSIDE RECORDS SUMMARY | 2025-06-19 11:02 | XMS_ITS | Clinical Summary ---
Author Organization [facility] Address [address] [place] [address] Care Team Providers Care Rating Clerk Name Role Phone Unavailable Primary Care Provider Unavailabl e Source Comments [facility],non-owned Affiliates and Associated Physician Practices is amultiple site organization consisting of ambulatory clinics and hospital sitesin [place], [place], [place] and [place]. This disclosure is being madepursuant to the Care Everywhere program and may not contain all information available regarding this patient. Last updated 18.[facility] Allergies Active Allergy Reactions Criticality Noted Date [...] fluticasone propionate (FLONASE) 50 MCG/ACT nasal spray Galva 2 sprays into each nostril once daily [...] Active ipratropium (ATROVENT) 0.06 % nasal spray Galva 2 sprays into each nostril 3 times [...] psychiatric, April 01, [facility] in [place]. Microcytic anemia 07/02/2015 SOB (shortness of [...] 05/28/2025 8:27 AM CDT Emergency ER at [address] [address] Halina West MD Encounter for medication refill Discharge Disposition: Home or Self Care 05/28/2025 Travel 05/27/2025 3:05 PM CDT - 05/27/2025 3:06 PM CDT Emergency ER at [address] [address] Encounter for medication refill Discharge Disposition: Home or Self Care 05/22/2025 8:18 AM CDT - 05/22/2025 8:25 AM CDT Emergency ER at [address] [address] Encounter for medication refill (Primary Dx) Discharge Disposition: Home or Self Care 05/22/2025 Travel 03/22/2025 9:42 AM CDT - 03/22/2025 10:36 AM CDT Emergency ER at [address] [address] Encounter for medication refill Discharge Disposition: Home [...] on file Legal Sex Male 6:27 AM MILK TRUCK DRIVER Gender Identity Not on file [...] URINE RANDOM PANEL Routine 10/20/2019 2:41 PM MILK TRUCK DRIVER Type 2 diabetes mellitus without complication, without long-term current use of insulin COMPREHENSIVE METABOLIC PANEL Routine 10/20/2019 2:41 PM MILK TRUCK DRIVER Type 2 diabetes mellitus without complication, without long-term current use of insulin Obesity with serious comorbidity, unspecified classification, unspecified obesity type HEPATITIS C AB W RFLX VERIFICATION Routine 10/20/2019 2:41 PM MILK TRUCK DRIVER Type 2 diabetes mellitus without complication, without long-term current use of insulin Need for hepatitis C screening test HEMOGLOBIN A1C - POINT OF CARE (AMB) [facility] Routine 08/01/2019 Type 2 diabetes mellitus without complication, without long-term current use of insulin from Last 3 Months or Most Recently Relevant to Health Maintenance Results * HEPATITIS C AB W RFLX VERIFICATION (10/20/2019 2:41 PM MILK TRUCK DRIVER) Hepatitis C Antibody <0.1 0.0 - 0.9 s/co ratio 10/21/2019 8:18 AM MILK TRUCK DRIVER [facility] ([facility]) Blood BLOOD SPECIMEN / Unknown Lab Venipuncture / Unknown 10/20/2019 2:41 PM MILK TRUCK DRIVER 10/20/2019 3:01 PM MILK TRUCK DRIVER Narrative [facility] ([facility]) - 10/21/2019 8:18 AM MILK TRUCK DRIVER Performed at: [facility] [id number] Insurance Territory Manager: Carlos Woods PhD, Phone: [phone] us Radha Palafox NEWSPAPER OR PERIODICAL EDITOR-[facility] LAB - CHEMISTRY ORD ERABLES Final Result [facility] ([facility]) [address] [place] [address] * (ABNORMAL) MICROALB/CREAT RATIO URINE RANDOM PANEL (10/20/2019 2:41 PM MILK TRUCK DRIVER) Albumin Random Urine 65.0 Not Established mcg/mL 10/20/2019 4:57 PM [facility] Creatinine Urine 143 Not Established mg/dL 10/20/2019 4:57 PM [facility] Comment: Result obtained by dilution. Urine Albumin/Creati nine Ratio 45(H) <30 mg/g 10/20/2019 4:57 PM [facility] Urine URINE SPECIMEN OBTAINED BY CLEAN CATCH PROCEDURE / Unknown Collection / Unknown 10/20/2019 2:41 PM MILK TRUCK DRIVER 10/20/2019 3:01 PM [facility] Radha Palafox [facility] LAB - URINE RAILROAD CROSSING PROTECTION MAINTAINER RY ORDERABLES Final Result [facility] [address] [place] [address] * (ABNORMAL) COMPREHENSIVE METABOLIC PANEL (10/20/2019 2:41 PM MILK TRUCK DRIVER) Pathologist [facility] BUN 11 7 - 26 mg/dL 10/20/2019 3:33 PM [facility] Creatinine 0.9 0.6 - 1.2 mg/dL 10/20/2019 3:33 PM [facility] Sodium 142 136 - 145 mmol/L 10/20/2019 3:33 PM [facility] Potassium 3.3(L) 3.5 - 4.5 mmol/L 10/20/2019 3:33 PM [facility] Chloride 104 98 - 107 mmol/L 10/20/2019 3:33 PM [facility] CO2 25 22 - 29 mmol/L 10/20/2019 3:33 PM [facility] Glucose 96 70 - 115 mg/dL 10/20/2019 3:33 PM [facility] Calcium 9.5 8.4 - 10.2 mg/dL 10/20/2019 3:33 PM [facility] Protein Total 8.2 6.0 - 8.3 g/dL 10/20/2019 3:33 PM [facility] Albumin 4.2 3.4 - 5.0 g/dL 10/20/2019 3:33 PM [facility] Bilirubin Total 1.7(H) 0.2 - 1.2 mg/dL 10/20/2019 3:33 PM [facility] Alkaline Phosphatase 75 40 - 150 Units/L 10/20/2019 3:33 PM [facility] ALT 60(H) 0 - 55 Units/L 10/20/2019 3:33 PM [facility] AST 63(H) 5 - 34 Units/L 10/20/2019 3:33 PM [facility] Anion Gap 16 8 - 18 10/20/2019 3:33 PM [facility] BUN/Creatinine Ratio 12 7 - 23 10/20/2019 3:33 PM [facility] Osmolality Calculated 293 270 - 300 mOsm/kg 10/20/2019 3:33 PM [facility] Albumin/Globulin Ratio 1.1 1.1 - 2.3 10/20/2019 3:33 PM [facility] eGFR >60 >60 mL/min/1.7 3 m2 10/20/2019 3:33 PM [facility] Blood BLOOD SPECIMEN / Unknown Lab Venipuncture / Unknown 10/20/2019 2:41 PM MILK TRUCK DRIVER 10/20/2019 3:01 PM MILK TRUCK DRIVER Radha Palafox APRN-TOOL AND DIE MAKER LAB - CHEMISTRY ORD ERABLES Final Result [facility] [address] [place] [address] * HEMOGLOBIN A1C - POINT OF CARE (AMB) [facility] (08/01/2019) Pathologist [facility] Hemoglobin A1c POCT 7.5 BLOOD SPECIMEN / Unknown 08/01/2019 Radha Palafox NEWSPAPER OR PERIODICAL EDITOR-TOOL AND DIE MAKER LAB - POINT OF CARE ORDERABLES Final Result from Last 3 Months or Most Recently Relevant to Health Maintenance Insurance [facility]
--- OUTSIDE RECORDS SUMMARY | 2025-06-19 11:02 | XMS_ITS | Encounter Summary ---
Author Organization [employer] Address [address] [place] [address] Care Team Providers Care Counter Dish Carrier Name Role Phone Howard Trinidad MD Primary Care Provider Un available Encounter Details Date Type Department Care Team (Late st Contact Info) Description 06/03/2008 Emergency [facility] Er, Authorized P NO ADDRESS ON FILE Jose Soto MD [facility] [place] [address] Social History Tobacco Use Types Packs/Day Years Used Date Smoking Tobacco: Never Assessed Sex and Gender Information Value Date Recorded Sex Assigned at Not on file Legal Sex Male 4:57 AM BAR FINISH OPERATOR Gender Identity Not on file Sexual Orientation Not on file documented as of this encounter Plan of Treatment Not on file documented as of this encounter Visit Diagnoses Not on filedocumented in this encounter Care Teams Counter Dish Carrier Relationship Specialty Start Date End Date Howard Trinidad MD PCP - General Family Practice 01/25/16 01/26/16 documented as of this encounter
--- OUTSIDE RECORDS SUMMARY | 2025-06-19 11:02 | XMS_ITS | Encounter Summary ---
Author Organization [employer] Address [address] [place] [address] Care Team Providers Care Natural Remedy Consultant Name Role Phone Howard Trinidad MD Primary Care Provider Un available Encounter Details Date Type Department Care Team (Late st Contact Info) Description 03/17/2003 Emergency [facility] Venus Sotelo MD [address] [place] [id number] Er, Authorized P NO ADDRESS ON FILE DEPRESSIVE DISORDER NEC (Primary Dx) Social History Tobacco Use Types Packs/Day Years Used Date Smoking Tobacco: Never Assessed Sex and Gender Information Value Date Recorded Sex Assigned at Not on file Legal Sex Male 4:57 AM HAND LEATHER TRIMMER Gender Identity Not on file Sexual Orientation Not on file documented as of this encounter Plan of Treatment Not on file documented as of this encounter Visit Diagnoses Diagnosis Depressive disorder, not elsewhere classified- Primary documented in this encounter Care Teams Natural Remedy Consultant Relationship Specialty Start Date End Date Howard Trinidad MD PCP - General Family Practice 01/25/16 01/26/16 documented as of this encounter
--- OUTSIDE RECORDS SUMMARY | 2025-06-19 11:02 | XMS_ITS | Encounter Summary ---
Author Organization [employer] Address [address] [place] [address] Care Team Providers Care Commissioner Public Works Name Role Phone Howard Trinidad MD Primary Care Provider Un available Encounter Details Date Type Department Care Team (Late st Contact Info) Description 03/02/2004 Emergency [facility] Ian Gauthier [id number] [place] [phone] Er, Authorized P NO ADDRESS ON FILE ANXIETY STATE NOS (Primary Dx) Social History Tobacco Use Types Packs/Day Years Used Date Smoking Tobacco: Never Assessed Sex and Gender Information Value Date Recorded Sex Assigned at Not on file Legal Sex Male 4:57 AM SALVAGE MEND WORKER Gender Identity Not on file Sexual Orientation Not on file documented as of this encounter Plan of Treatment Not on file documented as of this encounter Visit Diagnoses Diagnosis Anxiety state, unspecified- Primary documented in this encounter Care Teams Commissioner Public Works Relationship Specialty Start Date End Date Howard Trinidad MD PCP - General Family Practice 01/25/16 01/26/16 documented as of this encounter
--- OUTSIDE RECORDS SUMMARY | 2025-06-19 11:02 | XMS_ITS | Clinical Summary ---
Author Organization [facility] Address [facility] [place] [address] Care Team Providers Care Skiver Welt End Name Role Phone None, Provider MD Primary [...] complete this topic Insurance [employer] Care Teams Skiver Welt End Relationship Specialty Start Date End Date None, Provider, PCP - General 12/31/19
--- OUTSIDE RECORDS SUMMARY | 2025-06-19 11:02 | XMS_ITS | Encounter Summary ---
Author Organization [employer] Address [address] [place] [address] Care Team Providers Care Control Valve Mechanic Name Role Phone Howard Trinidad MD [...] file Legal Sex Male 4:57 AM QUALITY CONTROL AUDITOR Gender Identity Not on file Sexual Orientation Not on file documented as of this encounter Plan of Treatment Not on file documented as of this encounter Visit Diagnoses Diagnosis Panic disorder without agoraphobia- Primary documented in this encounter Care Teams Control Valve Mechanic Relationship Specialty Start Date End Date Howard Trinidad MD PCP - General Family Practice 01/25/16 01/26/16 documented as of this encounter
--- OUTSIDE RECORDS SUMMARY | 2025-06-19 11:02 | XMS_ITS | Encounter Summary ---
Author Organization [employer] Address [address] [place] [address] Care Team Providers Care Backer Up Name Role Phone Howard Trinidad MD Primary Care Provider Un available Encounter Details Date Type Department Care Team (Late st Contact Info) Description 04/03/2004 Emergency [facility] Leticia Cotton MD [facility] [place] [address] Er, Authorized P NO ADDRESS ON FILE PANIC DISORDER (Primary Dx) Social History Tobacco Use Types Packs/Day Years Used Date Smoking Tobacco: Never Assessed Sex and Gender Information Value Date Recorded Sex Assigned at Not on file Legal Sex Male 4:57 AM FUR MACHINE OPERATOR Gender Identity Not on file Sexual Orientation Not on file documented as of this encounter Plan of Treatment Not on file documented as of this encounter Visit Diagnoses Diagnosis Panic disorder without agoraphobia- Primary documented in this encounter Care Teams Backer Up Relationship Specialty Start Date End Date Howard Trinidad MD PCP - General Family Practice 01/25/16 01/26/16 documented as of this encounter
--- OUTSIDE RECORDS SUMMARY | 2025-06-19 11:02 | XMS_ITS | Encounter Summary ---
Author Organization [facility] Address [address] [place] [address] Care Team Providers Care Hospital Chaplain Name Role Phone Unavailable Primary Care Provider Unavailabl e Reason for Visit * Reason Onset Date Comments Blood Pressure 12/01/2019 Encounter Details Date Type Department Care Team (Late st Contact Info) Description 12/01/2019 Telephone [facility] General Internal Medicine [address] [facility] [address] [place] [address] Radha Palafox, FRENCH DRAWER-PRIVATE EQUITY ANALYST [address] OF [facility] [place] [phone] Blood Pressure Social History Tobacco Use Types Packs/Day Years Used Date Smoking Tobacco: Former Smokeless Tobacco: Never Alcohol Use Standard Drinks/Week Comments No 0 (1 standard drink = 0.6 oz pur e alcohol) Sex and Gender Information Value Date Recorded Sex Assigned at Not on file Legal Sex Male 6:27 AM HOMEMAKER COMPANION Gender Identity Not on file Sexual Orientation Not on file documented as of this encounter Miscellaneous Notes * Telephone Encounter - Vneus Powell RN - 12/01/2019 10:51 AM CDT Carlos Mcgee was transferred to pa. He is demanding to speak to someone [...] also stated that he know that Lilian PROCESS CONTROL SPECIALIST still is responsible for his care for 30 days. I tried to let him know that if his BP went down after a breathing treatment heprobably did not necessarily need another BP medication. He became upset and stated that he takes his BP in stores and that yesterday it was 153/96. He would like additional medication sent to [facility] in [place], [place]. Mallory in the Call Center stated [...]
--- OUTSIDE RECORDS SUMMARY | 2025-06-19 11:02 | XMS_ITS | Encounter Summary ---
Author Organization [employer] Address [address] [place] [address] Care Team Providers Care Dish Washer Name Role Phone Howard Trinidad MD Primary [...] on file Legal Sex Male 4:57 AM COLOR REPAIRER Gender Identity Not on file Sexual [...] did not get a call back. Medications: [facility] review Medication reactions: epic review <<<<<<<< TRIAGE NOTE >>>>>>>> Triage Note: Medical Psychotherapist Seema Cueva added this note on Dec [...] they will have to speak with his manufacturing associate because he is upset with the lies [...] on filedocumented in this encounter Care Teams Dish Washer Relationship Specialty Start Date End Date Howard Trinidad MD PCP - General Family Practice 01/25/16 01/26/16 documented as of this encounter
--- OUTSIDE RECORDS SUMMARY | 2025-06-19 11:02 | XMS_ITS | Encounter Summary ---
Author Organization [employer] Address 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 He indicated he had called [...] on filedocumented in this encounter Care Teams Maternal Child Nurse Relationship Specialty Start Date End Date Howard Trinidad MD PCP - General Family Practice 01/25/16 01/26/16 documented as of this encounter
--- OUTSIDE RECORDS SUMMARY | 2025-06-19 11:02 | XMS_ITS | Clinical Summary ---
Author Organization [facility] Address [address] [place] [address] Phone Care Team Providers Care Novelty Worker Name Role Phone Unavailable Primary Care [...]
--- OUTSIDE RECORDS SUMMARY | 2025-06-19 11:02 | XMS_ITS | Encounter Summary ---
Author Organization [employer] Address 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
--- OUTSIDE RECORDS SUMMARY | 2025-06-19 11:02 | XMS_ITS | Encounter Summary ---
Author Organization [facility] Address [address] [facility] [place] [address] Care Team Providers Care Ordnance Equipment Worker Name Role Phone Unavailable Primary Care Provider Unavailabl e Reason for Visit * Reason Onset Date Comments Medication Issue 10/24/2019 Encounter Details Date Type Department Care Team (Late st Contact Info) Description 10/24/2019 Telephone [facility] General Internal Medicine [address] [facility] [address] [place] [address] Radha Palafox APRN-CNP [address] OF [facility] [place] [phone] Medication Issue Social History Tobacco Use Types Packs/Day Years Used Date Smoking Tobacco: Former Smokeless Tobacco: Never Alcohol Use Standard Drinks/Week Comments No 0 (1 standard drink = 0.6 oz pur e alcohol) Sex and Gender Information Value Date Recorded Sex Assigned at Not on file Legal Sex Male 6:27 AM QUALITY LAB TECHNICIAN Gender Identity Not on file Sexual Orientation Not on file documented as of this encounter Miscellaneous Notes * Telephone Encounter - Radha Palafox APRN-CNP - 10/24/2019 5:44 PM QUALITY LAB TECHNICIAN Called patient. Again talking about his urinary [...] happy with anyone he gets. MELISA Diaz ITY LAB TECHNICIAN * Telephone Encounter - Mallory Flores RN - 10/24/2019 2:47 PM CST Patient calling again today He is complaining of being lightheaded. Please see below message ITY LAB TECHNICIAN * Telephone Encounter - Mallory Flores RN - 10/24/2019 2:27 PM CST Patient calling and he is out xanax and psychiatrist will not refill He wants to speak with you about this [phone] ITY LAB TECHNICIAN documented in this encounter Plan of Treatment Not on file documented as of this encounter Visit Diagnoses Not on filedocumented in this encounter
--- OUTSIDE RECORDS SUMMARY | 2025-06-19 11:02 | XMS_ITS | Encounter Summary ---
Author Organization [employer] Address 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
--- OUTSIDE RECORDS SUMMARY | 2025-06-19 11:02 | XMS_ITS | Encounter Summary ---
Author Organization [employer] Address 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
--- OUTSIDE RECORDS SUMMARY | 2025-06-19 11:02 | XMS_ITS | Encounter Summary ---
Author Organization [employer] Address 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
--- OUTSIDE RECORDS SUMMARY | 2025-06-19 11:02 | XMS_ITS | Encounter Summary ---
Author Organization [employer] Address [address] [place] [address] Care Team Providers Care Target Aircraft Technician Name Role Phone Howard Trinidad MD Primary Care Provider Un available Encounter Details Date Type Department Care Team (Late st Contact Info) Description 07/01/2006 Outpatient Historical [facility] Support Serv. ([facility] Card[facility]) [address] 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
--- OUTSIDE RECORDS SUMMARY | 2025-06-19 11:02 | XMS_ITS | Encounter Summary ---
Author Organization [facility] Address [address] [facility] [place] [address] Care Team Providers Care Tax Manager Public Name Role Phone Unavailable Primary Care Provider Unavailabl e Reason for Visit * Reason Onset Date Comments FLU 11/27/2019 Encounter Details Date Type Department Care Team (Late st Contact Info) Description 11/27/2019 Telephone [facility] Internal Medicine [address] [facility] [address] [place] [address] Radha Palafox, ORNAMENTAL RAIL INSTALLER-APPAREL MACHINERY INSTRUCTOR [address] OF [facility] [place] [phone] FLU Social History Tobacco Use Types Packs/Day Years Used Date Smoking Tobacco: Former Smokeless Tobacco: Never Alcohol Use Standard Drinks/Week Comments No 0 (1 standard drink = 0.6 oz pur e alcohol) Sex and Gender Information Value Date Recorded Sex Assigned at Not on file Legal Sex Male 6:27 AM CORPORATE CONSULTANT Gender Identity Not on file Sexual Orientation Not on file documented as of this encounter Miscellaneous Notes * Telephone Encounter - Mallory Flores RN - 11/27/2019 1:21 PM CDT Caller transferred to triage line from care team coordinator scheduler and call got disconnected. Per care team coordinator scheduler caller thinks he has coronavirus Attempted to call back and left vm. documented in this encounter Plan of Treatment Not on file documented as of this encounter Visit Diagnoses Not on filedocumented in this encounter
--- OUTSIDE RECORDS SUMMARY | 2025-06-19 11:02 | XMS_ITS | Encounter Summary ---
Author Organization [facility] Healthcare Address [address] [place] [address] Care Team Providers Care Composite Science Teacher Name Role Phone Jagdeep Sanford DO Primary Care Provider [phone] Miscellaneous, Not In File Unavailable Unava Charanjit Wilburn MD Primary Care Provider [phone] Carlos Gamboa MD Primary Care Provid er Unknown, Notinfile Primary Care Provider Unavail able No, Physician Primary Care Provider [phone] Unknown, Notinfile Primary Care Provider Unavail able No, Physician Primary Care Provider [phone] Unknown, Notinfile Primary Care Provider Unavail able Adin Lino MD Primary Care Provider + Unknown, Notinfile Primary Care Provider Unavail able Encounter Details Date Type Department Care Team (Late st Contact Info) Description 11/29/2019 Documentation [facility] Respiratory [address] [place] [address] Herbie Ramsey RRT Social History Tobacco Use [...] on file Legal Sex Male 1:40 AM SORTING LIVESTOCK WORKER Gender Identity Not on file Sexual [...] COVID: Suspected 10/11/2023 10/11/2023 10/11/2023 5:30 PM SORTING LIVESTOCK WORKER COVID: Suspected 10/22/2024 10/22/2024 10/22/2024 5:53 PM SORTING LIVESTOCK WORKER Influenza, adult 10/22/2024 10/22/2024 10/29/2024 3:05 AM SORTING LIVESTOCK WORKER documented as of this encounter Care Teams Composite Science Teacher Relationship Specialty Start Date End Date Jagdeep Sanford DO [address] [place] [address] [id number] PCP - General Family Medicine 11/16/19 01/20/20 Charanjit Sheffield MD PCP - General 01/21/20 09/29/20 Carlos Gamboa MD [address] [place] [id number] PCP - General Family Medicine 09/30/20 05/07/21 Unknown, Notinfile PCP - General 05/08/21 11/26/21 No, Physician PCP - General 11/27/21 01/13/23 Unknown, Notinfile PCP - General 01/14/23 01/17/24 No, Physician PCP - General 01/18/24 04/21/24 Unknown, Notinfile PCP - General 04/22/24 07/30/24 Adin Lino MD [address] [place] [id number] PCP - General Internal Medicine 07/31/24 07/31/24 Unknown, Notinfile PCP - General 08/01/24 Miscellaneous, Not In File 3 documented as of this encounter
--- OUTSIDE RECORDS SUMMARY | 2025-06-19 11:02 | XMS_ITS | Encounter Summary ---
Author Organization [facility] Facility Care Team Providers Care Immunologist Name Role Phone No, Physician Primary Care Provider [phone] Cata Clifton NP Primary Care Provider [phone] No, Physician Primary Care Provider [phone] Miscellaneous, Not In File Primary Care Provider Unavailable Jagdeep Sanford DO Primary Care Provider Miscellaneous, Not In File Unavailable Unava Charanjit Wilburn MD Primary Care Provider [phone] Carlos Gamboa MD Primary Care Provid er Unknown, Notinfile Primary Care Provider Unavail able No, Physician Primary Care Provider [phone] Unknown, Notinfile Primary Care Provider Unavail able No, Physician Primary Care Provider [phone] Unknown, Notinfile Primary Care Provider Unavail able Adin Lino MD Primary Care Provider + Unknown, Notinfile Primary Care Provider Unavail able Encounter Details Date Type Department Care Team (Latest Contact Info) Description 06/23/2018 Orders Only [facility] ProviderRachael MD [address] [place] [id number] Social History Tobacco Use Types Packs/Day Years Used Date Smoking Tobacco: Former Smokeless Tobacco: Never Alcohol Use Standard Drinks/Week Comments No 0 (1 standard drink = 0.6 oz pur e alcohol) Sex and Gender Information Value Date Recorded Sex Assigned at Not on file Legal Sex Male 1:40 AM ANALOG IC DESIGN ENGINEER Gender Identity Not on file Sexual [...] COVID: Suspected 10/11/2023 10/11/2023 10/11/2023 5:30 PM ANALOG IC DESIGN ENGINEER COVID: Suspected 10/22/2024 10/22/2024 10/22/2024 5:53 PM ANALOG IC DESIGN ENGINEER Influenza, adult 10/22/2024 10/22/2024 10/29/2024 3:05 AM ANALOG IC DESIGN ENGINEER documented as of this encounter Care Teams Immunologist Relationship Specialty Start Date End Date No, Physician PCP - General 09/15/17 03/16/19 Cata Clifton NP PCP - General 03/17/19 11/04/19 No, Physician PCP - General 11/05/19 11/11/19 Miscellaneous, Not In File PCP - General 11/12/19 0 Jagdeep Sanford DO [address] [place] [id number] PCP - General Family Medicine 11/16/19 01/20/20 Charanjit Sheffield MD [address] [place] [id number] PCP - General 01/21/20 09/29/20 Carlos Gamboa MD [address] [place] [address] [phone] PCP - General Family Medicine 09/30/20 05/07/21 Unknown, Notinfile PCP - General 05/08/21 11/26/21 No, Physician PCP - General 11/27/21 01/13/23 Unknown, Notinfile PCP - General 01/14/23 01/17/24 No, Physician PCP - General 01/18/24 04/21/24 Unknown, Notinfile PCP - General 04/22/24 07/30/24 Adin Lino MD [address] [place] [id number] PCP - General Internal Medicine 07/31/24 07/31/24 Unknown, Notinfile PCP - General 08/01/24 Miscellaneous, Not In File 11/16/19 documented as of this encounter
--- NOTE | 2025-06-19 11:31 | ED.GENADULT ---
HPI - General Adult General Chief complaint: Urogenital-Male Stated complaint: urinary symptoms. lower abdominal pain Time Seen by Provider: 06/19/25 09:38 Source: patient Mode of arrival: ambulatory Limitations: no limitations History of Present Illness HPI narrative: 55-year-old with a history of hypertension, diverticulitis, frequent urinary tract presents today with the complaints left lower abdominal pain associated with urinary frequency for past few days. Patient states that had oral sex 5 days ago and he thinks he may STD.. Denies any blood in the infected no history of fever chills. Related Data Home Medications ?Medication ?Instructions ?Recorded ?Confirmed ?Last Taken ?Type potassium chloride 10 mEq 10 meq PO DAILY 06/09/23 07/26/24 08/18/24 History tablet,extended release alprazolam 2 mg tablet mg 04/17/25 Unknown History Allergies Allergy/AdvReac Type Severity Reaction Status Date / Time Iodinated Contrast Media Allergy Severe Anaphylaxis Verified 06/19/25 09:47 metformin Allergy Severe Stopped Verified 06/19/25 09:47 Breathing Sulfa (Sulfonamide Allergy Severe Anaphylaxis Verified 06/19/25 09:47 Antibiotics) sulfamethoxazole Allergy Severe Anaphylaxis Verified 06/19/25 09:47 famotidine Allergy Intermediate Hives Verified 06/19/25 09:47 losartan Allergy Intermediate SWLLEING Verified 06/19/25 09:47 LIP AND HIVES nebivolol Allergy Intermediate LIP Verified 06/10/25 16:18 SWELLING tramadol Allergy Intermediate Hives Verified 06/19/25 09:47 valsartan Allergy Intermediate HIVES/SOB Verified 06/19/25 09:47 amlodipine Allergy Mild HIVES Verified 06/19/25 09:47 azithromycin Allergy Mild Nervousness Verified 06/10/25 16:18 pantoprazole Allergy Mild Hives Verified 06/10/25 16:18 spironolactone Allergy Mild RASH AND Verified 06/10/25 16:18 ITCHING trimethoprim Allergy Mild RASH Verified 06/10/25 16:18 morphine Allergy Unknown Verified 06/19/25 09:47 cephalexin AdvReac Mild Nervousness Verified 06/19/25 09:47 flavoxate AdvReac Mild Nervousness Verified 06/19/25 09:47 lidocaine AdvReac Mild Nervousness Verified 06/10/25 16:18 lisinopril AdvReac Mild Nervousness Verified 06/10/25 16:18 nitrofurantoin AdvReac Mild Nervousness Verified 06/10/25 16:18 oxycodone AdvReac Mild Nervousness Verified 06/10/25 16:18 paroxetine AdvReac Mild Nervousness Verified 06/10/25 16:18 Review of Systems Review of Systems: All systems reviewed & are unremarkable except as noted in HPI and below Constitutional: Constitutional: Reports no additional constitutional complaints Eyes: Eyes: Reports no additional eye complaints ENT: Reports system reviewed and no additional complaints, except as documented Cardiovascular: Cardiovascular: Reports no additional cardiovascular complaints Respiratory: Respiratory: Reports no additional respiratory complaints Gastrointestinal: Gastrointestinal: Reports as per HPI Genitourinary: Genitourinary: Reports as per HPI Musculoskeletal: Musculoskeletal: Reports no additional musculoskeletal complaints Neurologic: Reports system reviewed and no additional complaints, except as documented [facility] Past Medical History Medical History Prediabetes Allergic rhinitis Chronic sinusitis Chronic post-traumatic stress disorder (PTSD) Anxiety Depression GERD (gastroesophageal reflux disease) Sleep apnea Asthma HTN (hypertension) CAD (coronary artery disease) history [facility] Surgical History Surgical History H/O gastric bypass Hx of cholecystectomy History of cardiac cath History of colonoscopy Family History Family History Grandparent Family history of obesity Hypertension Diabetes mellitus Mother Depression Patient's mother is in good health Family history of mental disorder Father Hypertension Patient's father is in good health Family history of alcoholism Cerebrovascular accident Sibling Patient's sister is in good health Patient's brother is in good health Father Cerebrovascular accident Alcoholism Hypertension Heart disease Mother Family history of malignant neoplasm Depression Hypertension Other Family history of cardiovascular disease Social History Social History Smoking status: Former smoker Smoking end date: 09/13/95 Alcohol intake: former Substance use: never Substance use type: opiates Lack of Transportation: No Lack of Food: Never True Current Housing: I Have Housing Concerned About Future Housing: No Difficulty Paying Gas/Electric Bills: No Difficulty Paying for Meds: No Currently Unemployed: No Education: Master's Degree or Higher Difficulty w/ Childcare or Family Care: No Living arrangements: alone Occupation/Education: occupation Gender identity (if verbalized by the patient): Male Sexual Orientation (if Verbalized by the Patient): Straight or Heterosexual Spiritual care concerns: No Exam Narrative: GENERAL: Well-appearing, well-nourished, and in no acute distress. HEAD: Normocephalic, atraumatic. EYES: PERRLA and EOMI. ENT: Nares clear, no rhinorrhea or epistaxis. Mucous membranes moist. NECK: Supple. CHEST: Clear to auscultation. No respiratory distress. HEART: Regular rate and rhythm. No murmur heard. Normal peripheral pulses. ABDOMEN: Soft, nontender, nondistended, normal active bowel sounds. EXTREMITIES: Normal range of motion. No edema. SKIN: Warm, dry, no rash. NEURO: No focal deficits. Alert and oriented x3. PSYCH: Normal mood and affect. Course Course Emergency Course: Notified him several times about his lab work and CT findings advised him to take antibiotic as prescribed. I did inform him that GC chlamydia will take about a day for ST get the results he can he did see his results on the portal or call medical records for his results. I have tried my best ability to explain to him about his lab work and CT findings. Vital Signs Vital signs: Vital Signs Temperature 36.5 C 06/19/25 09:40 Pulse Rate 65 06/19/25 09:40 Respiratory Rate 20 06/19/25 09:40 Blood Pressure 169/95 H 06/19/25 09:40 Pulse Oximetry 99 06/19/25 09:40 Oxygen Delivery Room Air 06/19/25 09:40 Temperature 36.5 C 06/19/25 09:40 Pulse Rate 65 06/19/25 09:40 Respiratory Rate 20 06/19/25 09:40 Blood Pressure 169/95 H 06/19/25 09:40 Pulse Oximetry 99 06/19/25 09:40 Oxygen Delivery Room Air 06/19/25 09:40 Medical Decision Making Differential Diagnosis Differential Diagnosis: UTI, urethritis, kidney stone, diverticulitis Vital Signs Vital Signs: Vital Signs Temperature 36.5 C 06/19/25 09:40 Pulse Rate 65 06/19/25 09:40 Respiratory Rate 20 06/19/25 09:40 Blood Pressure 169/95 H 06/19/25 09:40 Pulse Oximetry 99 06/19/25 09:40 Oxygen Delivery Room Air 06/19/25 09:40 Temperature 36.5 C 06/19/25 09:40 Pulse Rate 65 06/19/25 09:40 Respiratory Rate 20 06/19/25 09:40 Blood Pressure 169/95 H 06/19/25 09:40 Pulse Oximetry 99 06/19/25 09:40 Oxygen Delivery Room Air 06/19/25 09:40 Lab Data 06/19/25 10:01 06/19/25 10:01 Labs: Lab Results 06/19/25 06/19/25 06/19/25 Range/Units 10:00 10:01 11:07 WBC 6.1 (4.5-10.0) K/mm3 RBC 5.62 (4.6-6.20) M/mm3 Hgb 11.8 L (14.0-18.0) g/dL Hct 38.8 L (42.0-52.0) % MCV 69.0 L (80-100) fl MCH 21.0 L (26-34) pg MCHC 30.4 L (32-36) g/dl RDW 17.8 H (11.5-14.5) % Plt Count 161 (150-375) k/mm3 MPV 9.1 (7.4-10.4) fl Immature Gran % (Auto) 0.2 (0-0.5) % Neut % (Auto) 59.7 (45.5-73.1) % Lymph % (Auto) 30.2 (18.3-44.2) % [place] % (Auto) 6.8 (2.6-8.5) % Eos % (Auto) 2.3 (0-4.4) % Baso % (Auto) 0.8 (0.2-1.2) % Lymph # (Auto) 1.83 (0.9-3.2) K/mm3 [place] # (Auto) 0.4 (0.1-0.6) K/mm3 Eos # (Auto) 0.1 (0-0.3) K/mm3 Baso # (Auto) 0.1 (0.0-0.1) K/mm3 Abs Immat Gran (auto) 0.01 (0.00-0.031) K/mm3 Absolute Neuts (auto) 3.6 (1.3-6.7) K/mm3 Absolute Nucleated RBC 0.000 (0.0-0.012) K/mm3 Band Neutrophils % Not Reportable Nucleated RBC % 0.0 (0.0-0.2) % Platelet Estimate Adequate (Adequate) Anisocytosis 1+ Schistocytes None seen Sodium 140 (137-145) mmol/L Potassium 3.2 L (3.4-5.0) mmol/L Chloride 102 (98-107) mmol/L Carbon Dioxide 28 (22-30) mmol/L Anion Gap 10 (4-12) mmol/L BUN 10 (9-20) mg/dL Creatinine 0.97 (0.7-1.3) mg/dL Estim Creat Clear Calc 108 ml/min Estimated GFR > 60 (59 - ) Glucose 109 (65-110) mg/dL Calcium 8.7 (8.4-10.2) mg/dL Total Bilirubin 1.6 H (0.2-1.3) mg/dL AST 29 (17-59) U/L ALT 25 (6-50) U/L Alkaline Phosphatase 59 (38-126) U/L Total Protein 7.8 (6.3-8.2) g/dL Albumin 4.3 (3.5-5.1) g/dL Lipase 73 (23-300) U/L Urine Color Dark yellow (Yellow) Urine Appearance Clear (Clear) Urine pH 6.5 (5.0-9.0) Ur Specific Wyn[place] 1.018 (1.001-1.035) Urine Protein Trace (Negative) mg/dL Urine Glucose (UA) Negative (Negative) mg/dL Urine Ketones Trace H (Negative) mg/dL Ur Blood (Man) Negative (Negative) Urine Nitrate Positive H (Negative) Urine Bilirubin 1+ H (Negative) Urine Urobilinogen 1.0 (<2.0) mg/dL Add Ur Microanalysis Reviewed Leukocyte Esterase Rfl Trace H (Negative) EKNNY/UL Urine RBC 0-2 (0-2) /hpf Urine WBC 0-5 (0-3) /hpf Ur Squamous Epith Cells None seen (Few) /hpf Urine Bacteria None seen /hpf Urine Casts 3-5 C. trachomatis ([place]) Pending N. gonorrhoeae ([place]) Pending Imaging Data Radiologist's impression: ITS Impressions Abdomen/Pelvis CT 10/07/25 10:49 IMPRESSION: 1. Grossly stable appearance of the known mass in the sigmoid colon. Correlate clinically. 2. Concentric thickening of the marie of the descending colon and proximal sigmoid colon possibly due to diverticulitis. Discharge Plan Discharge Clinical Impression: Acute UTI Diverticulitis large intestine Qualifiers: Diverticulitis bleeding: without bleeding Diverticulitis complication: unspecified complication status Qualified Code(s): K57.32 - Diverticulitis of large intestine without perforation or abscess without bleeding Patient Disposition: Home Condition: Stable Instructions: Diverticulitis (DC), Urinary Tract Infection in Men (ED) Patient Language: Vietnamese Prescriptions: New ciprofloxacin HCl [Cipro] 500 mg tablet 500 mg PO Q12H Qty: 14 0RF hyoscyamine sulfate [Levsin/SL] 0.125 mg tablet, sublingual 0.125 mg sublingual QID Qty: 30 0RF metronidazole 500 mg tablet 500 mg PO Q8H 7 Days Qty: 21 0RF No Action potassium chloride 10 mEq tablet extended release 10 meq PO DAILY alprazolam 2 mg tablet ciprofloxacin HCl [Cipro] 500 mg tablet 500 mg PO Q12H Qty: 14 0RF albuterol sulfate 90 mcg/actuation HFA aerosol inhaler 2 puff inhalation Q4-6H PRN (Reason: shortness of breath or wheezing) 30 Days Qty: 8.5 0RF fluticasone propionate [Flonase Allergy Relief] 50 mcg/actuation spray,suspension 1 spray intranasal BID Qty: 16 0RF Rx Instructions: administer into each nostril (DME) Aerochamber Plus Z Stat Spacer See Rx Instructions .Route Qty: 1 0RF Rx Instructions: As directed atenolol 100 mg tablet 100 mg PO DAILY Qty: 30 0RF mupirocin 2 % ointment 1 applic topical BID Qty: 15 0RF omeprazole 40 mg capsule,delayed release(DR/EC) 40 mg PO DAILY Qty: 30 0RF atenolol 100 mg tablet 100 mg PO DAILY Qty: 30 0RF nystatin 100,000 unit/gram powder 1 applic topical BID Qty: 30 0RF atenolol 100 mg tablet 100 mg PO DAILY 14 Days Qty: 14 0RF fluticasone propionate [Flonase Allergy Relief] 50 mcg/actuation spray,suspension 1 spray intranasal BID Qty: 16 0RF Rx Instructions: administer into each nostril [id number] [Excedrin Extra Strength] 250-250-65 mg tablet 1 tablet PO Q4-6H PRN (Reason: pain) Qty: 60 0RF ferrous sulfate 325 mg (65 mg iron) tablet 325 mg PO DAILY Qty: 90 1RF escitalopram oxalate [Lexapro] 20 mg tablet 20 mg PO DAILY Qty: 30 5RF Follow-up/Referrals: PHYSICIAN,FLIGHT KITCHEN MANAGER [Primary Care Provider, Internal Medicine] Sam Sam MD [Physician, Family Practice] Time of Disposition: 11:35
[2025-06-21 03:07] LABS: Neisseria gonorrhoeae, NAA Negative (Negative)
== END 2025-06-19 11:49 | disposition home or self-care (01) ==
PROVIDERS: Physician Assistant; Emergency Provider Family Medicine
DX: N39.0 Urinary tract infection, site not specified (principal); K57.32 Diverticulitis of large intestine without perforation or abscess without bleeding; I10 Essential (primary) hypertension; Z87.891 Personal history of nicotine dependence
CPT/HCPCS: 36415; 74176; 80053; 81001; 83690; 85025; 87086; 87491; 87591; 99284

== ENCOUNTER 2025-06-24 10:08 | Emergency (ER) | payer OTHER, SELFPAY ==
--- NOTE | 2025-06-24 10:14 | ED.SKABFB ---
HPI - Skin/Abscess/Foreign Bdy General Chief complaint: Urogenital-Male Stated complaint: urinary irritation Time Seen by Provider: 06/24/25 10:10 Source: patient Mode of arrival: ambulatory Limitations: no limitations History of Present Illness HPI narrative: Patient is a 55-year-old male who presents with a painful bump and pelvic area. Patient states it started this morning and was tender when walking to the bathroom. Patient was seen in emergency department 06/19 and was diagnosed with UTI and diverticulitis. Patient has been on Cipro and Flagyl since. Patient states his UTI symptoms have improved but he is still having lower abdominal pain consistent with his diverticulitis. Patient reports body aches Related Data Home Medications ?Medication ?Instructions ?Recorded ?Confirmed ?Last Taken ?Type potassium chloride 10 mEq 10 meq PO DAILY 06/09/23 07/26/24 08/18/24 History tablet,extended release alprazolam 2 mg tablet mg 04/17/25 Unknown History Allergies Allergy/AdvReac Type Severity Reaction Status Date / Time Iodinated Contrast Media Allergy Severe Anaphylaxis Verified 06/24/25 10:11 metformin Allergy Severe Stopped Verified 06/24/25 10:11 Breathing Sulfa (Sulfonamide Allergy Severe Anaphylaxis Verified 06/24/25 10:11 Antibiotics) sulfamethoxazole Allergy Severe Anaphylaxis Verified 06/24/25 10:11 famotidine Allergy Intermediate Hives Verified 06/24/25 10:11 losartan Allergy Intermediate SWLLEING Verified 06/24/25 10:11 LIP AND HIVES nebivolol Allergy Intermediate LIP Verified 06/24/25 10:11 SWELLING tramadol Allergy Intermediate Hives Verified 06/24/25 10:11 valsartan Allergy Intermediate HIVES/SOB Verified 06/24/25 10:11 amlodipine Allergy Mild HIVES Verified 06/24/25 10:11 azithromycin Allergy Mild Nervousness Verified 06/24/25 10:11 pantoprazole Allergy Mild Hives Verified 06/24/25 10:11 spironolactone Allergy Mild RASH AND Verified 06/24/25 10:11 ITCHING trimethoprim Allergy Mild RASH Verified 06/24/25 10:11 morphine Allergy Unknown Verified 06/24/25 10:11 cephalexin AdvReac Mild Nervousness Verified 06/24/25 10:11 flavoxate AdvReac Mild Nervousness Verified 06/19/25 09:47 lidocaine AdvReac Mild Nervousness Verified 06/24/25 10:11 lisinopril AdvReac Mild Nervousness Verified 06/24/25 10:11 nitrofurantoin AdvReac Mild Nervousness Verified 06/24/25 10:11 oxycodone AdvReac Mild Nervousness Verified 06/24/25 10:11 paroxetine AdvReac Mild Nervousness Verified 06/24/25 10:11 Review of Systems Review of Systems: All systems reviewed & are unremarkable except as noted in HPI and below Constitutional: Constitutional: Denies body ache(s), Denies chills, Denies fatigue, Denies fever(s), Denies headache(s), Denies malaise and Denies weakness Eyes: Eyes: Denies blurry vision, Denies irritation and Denies loss of vision ENT: Denies otalgia, Denies headache(s), Denies nasal discharge, Denies sinus pain and Denies sore throat Cardiovascular: Cardiovascular: Denies chest pain, Denies irregular heart rhythm and Denies dyspnea Respiratory: Respiratory: Denies dyspnea Gastrointestinal: Gastrointestinal: Reports abdominal pain, Denies melena, Denies hematochezia, Denies diarrhea, Denies nausea and Denies vomiting Musculoskeletal: Musculoskeletal: Denies back pain, Denies myalgias and Denies arthralgias Integumentary/Breasts: Skin/Breast: Denies pruritus, Denies rash, Reports skin pain and Reports skin swelling Neurologic: Denies headache(s), Denies loss of vision and Denies weakness Psychiatric: Psychiatric: Reports no additional psychiatric complaints Endocrine: Endocrine: Denies fatigue PMFSH Past Medical History Medical History Prediabetes Allergic rhinitis Chronic sinusitis Chronic post-traumatic stress disorder (PTSD) Anxiety Depression GERD (gastroesophageal reflux disease) Sleep apnea Asthma HTN (hypertension) CAD (coronary artery disease) history [place] Concussion Surgical History Surgical History H/O gastric bypass Hx of cholecystectomy History of cardiac cath History of colonoscopy Family History Family History Grandparent Family history of obesity Hypertension Diabetes mellitus Mother Depression Patient's mother is in good health Family history of mental disorder Father Hypertension Patient's father is in good health Family history of alcoholism Cerebrovascular accident Sibling Patient's sister is in good health Patient's brother is in good health Father Cerebrovascular accident Alcoholism Hypertension Heart disease Mother Family history of malignant neoplasm Depression Hypertension Other Family history of cardiovascular disease Social History Social History Smoking status: Former smoker Smoking end date: 09/13/95 Alcohol intake: former Substance use: never Substance use type: opiates Lack of Transportation: No Lack of Food: Never True Current Housing: I Have Housing Concerned About Future Housing: No Difficulty Paying Gas/Electric Bills: No Difficulty Paying for Meds: No Currently Unemployed: No Education: Master's Degree or Higher Difficulty w/ Childcare or Family Care: No Living arrangements: alone Occupation/Education: occupation Gender identity (if verbalized by the patient): Male Sexual Orientation (if Verbalized by the Patient): Straight or Heterosexual Spiritual care concerns: No Comments At time of signature, agree with nursing past medical, surgical, social and family history. There is no relevant family history pertinent to the presenting complaint. Exam Const: General: cooperative, healthy appearing, comfortable, no acute distress and well nourished Nutritional Appearance: well nourished Orientation/consciousness: patient oriented x3 Limitations: no limitations HENMT: Head: normal to inspection, normocephalic and atraumatic Ears: hearing grossly normal bilaterally and external ears normal Face/Nose/Sinus: Normal external nose present, normal facial exam and face symmetric Face and sinus: normal facial exam and face symmetric Mouth: Yes lip normal Eyes: General: appearance normal, both eyes and all related structures Alignment and Position: alignment normal and position normal Periorbital: periorbital findings normal Eyelids: eyelids normal Pupils: Equal, round and reactive pupils present EOM: EOMs intact bilaterally Neck: Neck: normal visual inspection, full ROM and supple Chest: Chest palpation & inspection: normal inspection of the chest Resp: Effort & Inspection: normal respiratory effort and able to speak in complete sentences Auscultation: clear to auscultation bilaterally Cardio: Rate: regular rate Rhythm: regular rhythm Heart sounds: S1 normal heart sound present and S2 normal heart sound present GI: Inspection: normal to inspection : Male genitals images:  1. small 0.5 cm area of erythema surrounding hair follicle. no warmth or drainage Skin: General skin exam: normal color and no rashes or lesions noted Neuro: General: patient oriented x3 and moves all extremities Cranial nerves: Yes Equal, round and reactive pupils present Speech: normal speech Gait exam (Neuro): Normal gait present Extrem: General: normal to inspection, full ROM and no edema Psych: Appearance: grossly normal and well kempt Mental Status: mental status grossly normal Speech and movement: Normal speech and movement present Affect: normal affect Attitude: cooperative Thought process: Normal thought process present Course Course Emergency Course: Patient is aware of diagnosis, understands and agrees to treatment plan. Anticipatory guidance given. Patient agrees to follow-up as directed and is aware of reasons to seek care at the emergency department. Portions of this record may have been created with voice recognition software Level of Care: Express Care Visit Vital Signs Vital signs: Reviewed MDM - Skin/Abscess/Foreign Bdy MDM Narrative Medical decision making narrative: Patient spent significant amount of time complaining about his treatment in [facility] stating that the nursing staff was trying to embarrassed him by testing him for STDs. Attempted to redirect patient on several occasions. Patient reports he is not having full improvement from antibiotics and that he normally has at least 10-14 days of antibiotics for his diverticulitis flares. Requesting urine recheck. It did still show leuks but no nitrites. Discussed these results with patient. Patient then continued to ask multiple questions about why he is still having symptoms. Explained that he had not even completed the full course of antibiotics and that it does take time for infections to resolve. Has patient to lay on table to examine concerning spot and genital region. Patient did not expose himself but took several minutes with both hands down his pants feeling around to find the area he said was severely tender, while making the comment I feel like I am in high school again. The nurse and I waited patiently. Patient then said he needed to stand up to find the spot and showed the area through the opening in his underwear. Area was mildly red surrounding a hair follicle. Explained the patient that it was most likely folliculitis and that it had nothing to do with a UTI or his diverticulitis and is usually caused by sweat or dirt getting into a hair follicle. Folliculitis will resolve on its own, but explained to patient if he is having significant testicular pain or swelling he needs to go to the emergency department for an ultrasound as that is not in the Urgent Care scope of practice. Patient continued to ask multiple questions regarding his emergency department visit. Attempted to redirect patient, explained we extend antibiotic course as there is still evidence of infection. Patient then went on a rant about finding a pharmacy that will fill his medication that he does not have a problem with. Patient called pharmacy and was told the pharmacy would fill it this 1 time after they would not fill any more medication. After discharge patient called 2 other times to speak to provider asking questions and reporting more symptoms. All questions had previously been addressed with some answers being written on discharge instructions. Explained to patient if symptoms are worsening he needed to go back to the emergency as stated in his discharge instructions. Pt well hydrated appearing, in no respiratory distress, hemodynamically stable. The patient is stable at time of discharge the clinical impression was discussed and the patient was given the opportunity to ask questions, which were addressed as completely as possible given the information available at present. Anticipatory guidance and return to care precautions were discussed and the importance of primary care follow-up was stressed and encouraged. The patient voiced understanding of the plan, indications to return, and the need for follow-up. Exam findings show no acute concerns or changes Patient is appropriate for outpatient treatment and follow-up. Differential Diagnosis Differential diagnosis: Likely abscess of skin or subcutaneous tissue, cellulitis, insect bites, contact dermatitis and other (Folliculitis, diverticulitis) Medical Records Attestation: I reviewed the patient's medical records. Discharge Plan Discharge Clinical Impression: Diverticulitis, Folliculitis Patient Disposition: Home Condition: Stable Instructions: Diverticulitis (ED) Additional Instructions: Continue taking antibiotics as prescribed. Please go to the emergency department immediately should you feel worse in any way or have any of the following symptoms: increasing or different abdominal pain, persistent vomiting, fevers or shaking chills. Please follow-up with your primary care provider for further evaluation of your abdominal pain. Patient Language: Lithuanian Prescriptions: New metronidazole 500 mg tablet 500 mg PO Q12H 7 Days Qty: 14 0RF Rx Instructions: continuation of previous treatment ciprofloxacin HCl 500 mg tablet 500 mg PO Q12H 7 Days Qty: 14 0RF Rx Instructions: Continuation of treatment No Action potassium chloride 10 mEq tablet extended release 10 meq PO DAILY alprazolam 2 mg tablet ciprofloxacin HCl [Cipro] 500 mg tablet 500 mg PO Q12H Qty: 14 0RF albuterol sulfate 90 mcg/actuation HFA aerosol inhaler 2 puff inhalation Q4-6H PRN (Reason: shortness of breath or wheezing) 30 Days Qty: 8.5 0RF fluticasone propionate [Flonase Allergy Relief] 50 mcg/actuation spray,suspension 1 spray intranasal BID Qty: 16 0RF Rx Instructions: administer into each nostril (DME) Aerochamber Plus Z Stat Spacer See Rx Instructions .Route Qty: 1 0RF Rx Instructions: As directed atenolol 100 mg tablet 100 mg PO DAILY Qty: 30 0RF omeprazole 40 mg capsule,delayed release(DR/EC) 40 mg PO DAILY Qty: 30 0RF atenolol 100 mg tablet 100 mg PO DAILY Qty: 30 0RF nystatin 100,000 unit/gram powder 1 applic topical BID Qty: 30 0RF atenolol 100 mg tablet 100 mg PO DAILY 14 Days Qty: 14 0RF ciprofloxacin HCl [Cipro] 500 mg tablet 500 mg PO Q12H Qty: 14 0RF hyoscyamine sulfate [Levsin/SL] 0.125 mg tablet, sublingual 0.125 mg sublingual QID Qty: 30 0RF metronidazole 500 mg tablet 500 mg PO Q8H 7 Days Qty: 21 0RF fluticasone propionate [Flonase Allergy Relief] 50 mcg/actuation spray,suspension 1 spray intranasal BID Qty: 16 0RF Rx Instructions: administer into each nostril [id number] [Excedrin Extra Strength] 250-250-65 mg tablet 1 tablet PO Q4-6H PRN (Reason: pain) Qty: 60 0RF ferrous sulfate 325 mg (65 mg iron) tablet 325 mg PO DAILY Qty: 90 1RF escitalopram oxalate [Lexapro] 20 mg tablet 20 mg PO DAILY Qty: 30 5RF Follow-up/Referrals: PHYSICIAN,FILE MACHINE OPERATOR [Primary Care Provider, Internal Medicine]
[2025-06-24 10:15] VITALS: BP 148/78; PULSE 64; RESP 18; TEMP 36.6; O2SAT 98
[2025-06-24 10:21] LABS: EDUAAPPEAR Clear; EDUABILI Negative (Negative); EDUABLOOD Negative (Negative); EDUACOLOR1 Yellow; EDUAGLUCOSE Negative (Negative); EDUAKETONE Negative (Negative); EDUALEUKO Trace (Negative); EDUANITRATE Negative (Negative); EDUAPH 6.0; EDUAPROTEIN Negative (Negative); EDUASPGRAVITY 1.010; EDUAUROBILI 1.0
== END 2025-06-24 11:00 | disposition home or self-care (01) ==
PROVIDERS: Emergency Provider Nurse Practitioner Family
DX: K57.92 Diverticulitis of intestine, part unspecified, without perforation or abscess without bleeding (principal); L73.9 Follicular disorder, unspecified; Z87.891 Personal history of nicotine dependence; I25.10 Atherosclerotic heart disease of native coronary artery without angina pectoris; I25.2 Old myocardial infarction; J45.909 Unspecified asthma, uncomplicated; K21.9 Gastro-esophageal reflux disease without esophagitis; R73.03 Prediabetes; Z98.84 Bariatric surgery status; F41.9 Anxiety disorder, unspecified; F32.A Depression, unspecified
CPT/HCPCS: 81003; 99213; G0463

== ENCOUNTER 2025-07-16 14:49 | Emergency (ER) | payer OTHER, SELFPAY ==
--- NOTE | 2025-07-16 14:52 | ED_ITS ---
HPI - General Adult General Chief complaint: Unspecified Stated complaint: Multiple Complaints Time Seen by Provider: 07/16/25 15:15 Source: patient Mode of arrival: ambulatory Limitations: no limitations History of Present Illness HPI narrative: 55-year-old male presents with concern for medication refill. He reports he is unable to get a primary care provider, and he is out of his blood pressure medication. He took his last dose yesterday. He reports history of hypertension. He denies any symptoms of hypertension at this time. He reports he has tried multiple avenues to get a primary care provider and has not been successful. complaint: Medication refill Related Data Home Medications ?Medication ?Instructions ?Recorded ?Confirmed ?Last Taken ?Type potassium chloride 10 mEq 10 meq PO DAILY 06/09/2308/18/24 History tablet,extended release alprazolam 2 mg tablet mg 04/17/25 Unknown History Allergies Allergy/AdvReac Type Severity Reaction Status Date / Time Iodinated Contrast Media Allergy Severe Anaphylaxis Verified 06/24/25 10:11 metformin Allergy Severe Stopped Verified 06/24/25 10:11 Breathing Sulfa (Sulfonamide Allergy Severe Anaphylaxis Verified 06/24/25 10:11 Antibiotics) sulfamethoxazole Allergy Severe Anaphylaxis Verified 06/24/25 10:11 famotidine Allergy Intermediate Hives Verified 06/24/25 10:11 losartan Allergy Intermediate SWLLEING Verified 06/24/25 10:11 LIP AND HIVES nebivolol Allergy Intermediate LIP Verified 06/24/25 10:11 SWELLING tramadol Allergy Intermediate Hives Verified 06/24/25 10:11 valsartan Allergy Intermediate HIVES/SOB Verified 06/24/25 10:11 amlodipine Allergy Mild HIVES Verified 06/24/25 10:11 azithromycin Allergy Mild Nervousness Verified 06/24/25 10:11 pantoprazole Allergy Mild Hives Verified 06/24/25 10:11 spironolactone Allergy Mild RASH AND Verified 06/24/25 10:11 ITCHING trimethoprim Allergy Mild RASH Verified 06/24/25 10:11 morphine Allergy Unknown Verified 06/24/25 10:11 cephalexin AdvReac Mild Nervousness Verified 06/24/25 10:11 flavoxate AdvReac Mild Nervousness Verified 06/19/25 09:47 lidocaine AdvReac Mild Nervousness Verified 06/24/25 10:11 lisinopril AdvReac Mild Nervousness Verified 06/24/25 10:11 nitrofurantoin AdvReac Mild Nervousness Verified 06/24/25 10:11 oxycodone AdvReac Mild Nervousness Verified 06/24/25 10:11 paroxetine AdvReac Mild Nervousness Verified 06/24/25 10:11 Review of Systems Constitutional: Constitutional: Reports as per [facility] Past Medical History Medical History Prediabetes Allergic rhinitis Chronic sinusitis Chronic post-traumatic stress disorder (PTSD) Anxiety Depression GERD (gastroesophageal reflux disease) Sleep apnea Asthma HTN (hypertension) CAD (coronary artery disease) history [place] Concussion Surgical History Surgical History H/O gastric bypass Hx of cholecystectomy History of cardiac cath History of colonoscopy Family History Family History Grandparent Family history of obesity Hypertension Diabetes mellitus Mother Depression Patient's mother is in good health Family history of mental disorder Father Hypertension Patient's father is in good health Family history of alcoholism Cerebrovascular accident Sibling Patient's sister is in good health Patient's brother is in good health Father Cerebrovascular accident Alcoholism Hypertension Heart disease Mother Family history of malignant neoplasm Depression Hypertension Other Family history of cardiovascular disease Social History Social History Smoking status: Former smoker Smoking end date: 09/13/95 Alcohol intake: former Substance use: never Substance use type: opiates Lack of Transportation: No Lack of Food: Never True Current Housing: I Have Housing Concerned About Future Housing: No Difficulty Paying Gas/Electric Bills: No Difficulty Paying for Meds: No Currently Unemployed: No Education: Master's Degree or Higher Difficulty w/ Childcare or Family Care: No Living arrangements: alone Occupation/Education: occupation Gender identity (if verbalized by the patient): Male Sexual Orientation (if Verbalized by the Patient): Straight or Heterosexual Spiritual care concerns: No Comments At time of signature, agree with nursing past medical, surgical, social and family history. There is no relevant family history pertinent to the presenting complaint Exam Narrative: GENERAL: Well-appearing, well-nourished, and in no acute distress. HEAD: Normocephalic, atraumatic. EYES: PERRLA, sclera clear, and EOMI. ENT: Nares clear. Mucous membranes moist. NECK: Supple CHEST: No respiratory distress. Clear to auscultation. No bony deformities, no asymmetry. Speaks in full sentences. HEART: Regular rate and rhythm. No murmur heard. SKIN: Warm, dry, no visible rash. NEURO: Alert and oriented x3. PSYCH: Normal mood and affect Course Course Emergency Course: Discussed with this patient at length about medication refills on how coming to the [facility] care for medication refills every month is not appropriate, and the importance of finding a primary care provider. Patient was given referral to primary care provider for future medication refills. Portions of this record may have been created with voice recognition software Level of Care: Express Care Visit Vital Signs Vital signs: Reviewed. Medical Decision Making MDM Narrative Medical decision making narrative: The patient was evaluated by myself in the [facility] care. History is obtained from patient who is an independent historian and physical exam was performed.? Available medical records were reviewed at this time. ? Exam findings show no acute concerns or changes; patient is non-toxic appearing and is in no distress. Patient is appropriate for outpatient treatment and follow-up. ? I have evaluated and discussed social determinants of health with the patient that could potentially impact subsequent diagnosis and treatment plans. ? Differential diagnosis and treatment plan were discussed with the patient. Patient agrees with discussion and after shared medical decision making agrees with plan of care. All questions were answered to the patient's satisfaction. Critical Care Time Critical Care Time Critical Care Time: No Discharge Plan Discharge Clinical Impression: Medication refill Patient Disposition: Home Condition: Stable Instructions: Hypertension (ED) Additional Instructions: 1) Please follow-up with your primary care doctor for future refills, there is a referral on your discharge papers for PCP. 2) If you have any urgent concerns please go to the ER. 3) Please take medications as prescribed and continue taking your home medications as usual. 4) Please read and follow information included in discharge instructions. Patient Language: Arabic Prescriptions: New atenolol 100 mg tablet 100 mg PO DAILY Qty: 30 0RF No Action potassium chloride 10 mEq tablet extended release 10 meq PO DAILY alprazolam 2 mg tablet albuterol sulfate 90 mcg/actuation HFA aerosol inhaler 2 puff inhalation Q4-6H PRN (Reason: shortness of breath or wheezing) 30 Days Qty: 8.5 0RF fluticasone propionate [Flonase Allergy Relief] 50 mcg/actuation spray,suspension 1 spray intranasal BID Qty: 16 0RF Rx Instructions: administer into each nostril (DME) Aerochamber Plus Z Stat Spacer See Rx Instructions .Route Qty: 1 0RF Rx Instructions: As directed atenolol 100 mg tablet 100 mg PO DAILY Qty: 30 0RF omeprazole 40 mg capsule,delayed release(DR/EC) 40 mg PO DAILY Qty: 30 0RF hyoscyamine sulfate [Levsin/SL] 0.125 mg tablet, sublingual 0.125 mg sublingual QID Qty: 30 0RF [id number]-nkncmmct [Excedrin Extra Strength] 250-250-65 mg tablet 1 tablet PO Q4-6H PRN (Reason: pain) Qty: 60 0RF ferrous sulfate 325 mg (65 mg iron) tablet 325 mg PO DAILY Qty: 90 1RF escitalopram oxalate [Lexapro] 20 mg tablet 20 mg PO DAILY Qty: 30 5RF Follow-up/Referrals: PHYSICIAN,SUPERVISOR PARTIAL DENTURE DEPARTMENT [Primary Care Provider, Internal Medicine] Sam Sam MD [Physician, Family Practice] Time of Disposition: 15:27
[2025-07-16 14:59] VITALS: BP 143/86; PULSE 63; RESP 18; TEMP 36.6; O2SAT 100
== END 2025-07-16 15:32 | disposition home or self-care (01) ==
PROVIDERS: Emergency Provider Nurse Practitioner
DX: Z76.0 Encounter for issue of repeat prescription (principal); I25.10 Atherosclerotic heart disease of native coronary artery without angina pectoris; I25.2 Old myocardial infarction; R73.03 Prediabetes; K21.9 Gastro-esophageal reflux disease without esophagitis; F41.9 Anxiety disorder, unspecified; F32.A Depression, unspecified; Z87.891 Personal history of nicotine dependence; Z98.84 Bariatric surgery status
CPT/HCPCS: 99211; G0463

== ENCOUNTER 2025-08-30 10:37 | Emergency (ER) | payer OTHER, SELFPAY ==
--- OUTSIDE RECORDS SUMMARY | 2025-06-30 03:00 | XMS_ITS ---
Author Organization [facility] Address [address] [place] [address] Care Team Providers Care Catering Associate Name Role Phone Migration, Provider Unavailable Unavailable REASON FOR VISIT EMR-Stevie Encounters Encounter Location Date Provider Diagnosis [facility] [address] [place] [address] 06/30/2025 Provider Migration Plan Of Treatment No Information Progress Notes * Carlos KELLYDOB: 2 (55 yo M)Acc No.[id number]:06/30/2025 Patient: Carlos TREJO :1970 A ge:55 Y S ex:Male Address:[address] [place] [id number] Subjective: * Chief Complaints: * E MR-Stevie * * Date:
--- OUTSIDE RECORDS SUMMARY | 2025-07-01 03:00 | XMS_ITS ---
Author Organization [facility] Address [address] [place] [address] Care Team Providers Care Dragger Out Name Role Phone Migration, Provider Unavailable Unavailable REASON FOR VISIT EMR-Stevie Encounters Encounter Location Date Provider Diagnosis [facility] [address] [place] [address] 07/01/2025 Provider Migration Plan Of Treatment No Information Progress Notes * Carlos KELLYDOB: 2 (55 yo M)Acc No.[id number]:07/01/2025 Patient: Carlos TREJO :1970 A ge:55 Y S ex:Male Address:[address] [facility] [address] Subjective: * Chief Complaints: * E MR-Stevie * * Date:
[2025-08-30 10:37] VITALS: BP 170/82; PULSE 60; RESP 16; TEMP 36.6; O2SAT 100
[2025-08-30 11:35] LABS: Hematocrit 38.8 % (42.0-52.0); Hemoglobin 11.6 g/dL (14.0-18.0); Immature Granulocyte Percent A 0.4 % (0-0.5); Lymphocytes Absolute Auto 1.45 K/mm3 (0.9-3.2); Mean Corpuscular HGB Conc 29.9 g/dl (32-36); Mean Corpuscular Hemoglobin 20.9 pg (26-34); Mean Corpuscular Volume 70.0 fl (80-100); Nucleated Red Blood Cells Absolute Auto 0.000 K/mm3 (0.0-0.012); Nucleated Red Blood Cells Perc 0.0 % (0.0-0.2); Platelet Count Result 170 k/mm3 (150-375); Red Blood Count 5.54 M/mm3 (4.6-6.20); White Blood Count 4.8 K/mm3 (4.5-10.0)
--- OUTSIDE RECORDS SUMMARY | 2025-08-30 11:35 | XMS_ITS | Encounter Summary ---
Author Organization [facility] Facility Care Team Providers Care Plate Inspector Name Role Phone No, Physician Primary Care Provider [phone] Cata Clifton NP Primary Care Provider [phone] No, Physician Primary Care Provider [phone] Miscellaneous, Not In File Primary Care Provider Unavailable Jagdeep Sanford DO Primary Care Provider [phone] Miscellaneous, Not In File Unavailable Unava Charanjit Wilburn MD Primary Care Provider [phone] Carlos Gamboa MD Primary Care Provid er Unknown, Notinfile Primary Care Provider Unavail able No, Physician Primary Care Provider [phone] Unknown, Notinfile Primary Care Provider Unavail able No, Physician Primary Care Provider [phone] Unknown, Notinfile Primary Care Provider Unavail able Adin Lino MD Primary Care Provider + Unknown, Notinfile Primary Care Provider Unavail able Encounter Details Date Type Department Care Team (Latest Contact Info) Description 06/23/2018 Orders Only [facility] CLINCONV ProviderRachael MD [address] [place] [address] Social History Tobacco Use Types Packs/Day Years Used Date Smoking Tobacco: Former Smokeless Tobacco: Never Alcohol Use Standard Drinks/Week Comments No 0 (1 standard drink = 0.6 oz pur e alcohol) Sex and Gender Information Value Date Recorded Sex Assigned at Not on file Legal Sex Male 1:40 AM CASING MAN Gender Identity Not on file Sexual [...] COVID: Suspected 10/11/2023 10/11/2023 10/11/2023 5:30 PM CASING MAN COVID: Suspected 10/22/2024 10/22/2024 10/22/2024 5:53 PM CASING MAN Influenza, adult 10/22/2024 10/22/2024 10/29/2024 3:05 AM CASING MAN documented as of this encounter Care Teams Plate Inspector Relationship Specialty Start Date End Date No, Physician PCP - General 09/15/17 03/16/19 Cata Clifton NP PCP - General 03/17/19 11/04/19 No, Physician PCP - General 11/05/19 11/11/19 Miscellaneous, Not In File PCP - General 11/12/19 0 Jagdeep Sanford DO [address] [place] [id number] PCP - General Family Medicine 11/16/19 01/20/20 Charanjit Sheffield MD [address] [place] [id number] PCP - General 01/21/20 09/29/20 Carlos Gamboa MD [address] [place] [id number] PCP - General Family Medicine 09/30/20 05/07/21 Unknown, Notinfile PCP - General 05/08/21 11/26/21 No, Physician PCP - General 11/27/21 01/13/23 Unknown, Notinfile PCP - General 01/14/23 01/17/24 No, Physician PCP - General 01/18/24 04/21/24 Unknown, Notinfile PCP - General 04/22/24 07/30/24 Adin Lino MD [address] [place] [id number] PCP - General Internal Medicine 07/31/24 07/31/24 Unknown, Notinfile PCP - General 08/01/24 Miscellaneous, Not In File 11/16/19 documented as of this encounter
--- OUTSIDE RECORDS SUMMARY | 2025-08-30 11:35 | XMS_ITS | Encounter Summary ---
Author Organization [facility] Health Address [address] [place] [address] Care Team Providers Care Clin Asst Name Role Phone Unavailable Primary Care Provider Unavailabl e Reason for Visit * Reason Onset Date Comments Nausea 10/02/2019 Cramps 10/02/2019 Pain Abdominal 10/02/2019 Encounter Details Date Type Department Care Team (Late st Contact Info) Description 10/02/2019 Telephone [facility] [address] [facility] [address] [place] [address] Radha Palafox, APPLICATIONS SYSTEMS ENGINEER-REGULATORY AFFAIRS STRATEGY SPECIALIST [address] OF [facility] [place] [id number] Nausea; Cramps; Pain Abdominal Social History Tobacco Use Types Packs/Day Years Used Date Smoking Tobacco: Former Smokeless Tobacco: Never Alcohol Use Standard Drinks/Week Comments No 0 (1 standard drink = 0.6 oz pur e alcohol) Sex and Gender Information Value Date Recorded Sex Assigned at Not on file Legal Sex Male 6:27 AM QUALITY CONTROL MICROBIOLOGIST Gender Identity Not on file Sexual Orientation [...] no UTI. Pt requesting GIM office call [facility], [phone] for ED report for VENTURA Palafox to [...] for c/b to discuss sx further. CB# [phone] Routed to provider for further review ITY CONTROL MICROBIOLOGIST documented in this encounter Plan of Treatment Not on file documented as of this encounter Visit Diagnoses Not on filedocumented in this encounter
--- OUTSIDE RECORDS SUMMARY | 2025-08-30 11:35 | XMS_ITS | Encounter Summary ---
Author Organization [facility] Health Address [address] [facility] [place] [address] Care Team Providers Care Cryptanalyst Name Role Phone Unavailable Primary Care Provider Unavailabl e Reason for Visit * Reason Onset Date Comments FLU 11/27/2019 Encounter Details Date Type Department Care Team (Late st Contact Info) Description 11/27/2019 Telephone [facility] [address] [facility] [address] [place] [address] Radha Palafox, SALES RELATIONSHIP MANAGER-HOSE SEAMER [address] OF [facility] [place] [phone] FLU Social History Tobacco Use Types Packs/Day Years Used Date Smoking Tobacco: Former Smokeless Tobacco: Never Alcohol Use Standard Drinks/Week Comments No 0 (1 standard drink = 0.6 oz pur e alcohol) Sex and Gender Information Value Date Recorded Sex Assigned at Not on file Legal Sex Male 6:27 AM INSPECTOR PACKER Gender Identity Not on file Sexual Orientation Not on file documented as of this encounter Miscellaneous Notes * Telephone Encounter - Mallory Flores RN - 11/27/2019 1:21 PM CDT Caller transferred to triage line from appointment scheduler and call got disconnected. Per appointment scheduler caller thinks he has coronavirus Attempted to call back and left vm. documented in this encounter Plan of Treatment Not on file documented as of this encounter Visit Diagnoses Not on filedocumented in this encounter
--- OUTSIDE RECORDS SUMMARY | 2025-08-30 11:35 | XMS_ITS | Clinical Summary ---
Author Organization [facility] Address [address] [place] [address] Care Team Providers Care Engraver Copperplate Name Role Phone Unavailable Primary Care Provider Unavailabl e Source Comments [facility],non-owned Affiliates and Associated Physician Practices is amultiple site organization consisting of ambulatory clinics and hospital sitesin [place], [place], [place] and [place]. This disclosure is being madepursuant to the Care Everywhere program and may not contain all information available regarding this patient. Last updated 18.[facility] Allergies Active Allergy Reactions Criticality Noted Date [...] fluticasone propionate (FLONASE) 50 MCG/ACT nasal spray [place] 2 sprays into each nostril once daily [...] Active ipratropium (ATROVENT) 0.06 % nasal spray [place] 2 sprays into each nostril 3 times [...] 2 times daily 20 tablet 0 Active hydrOXYzine HCl (Atarax) 25 MG tablet Take 1 (one) tablet by mouth 4 times daily as needed for Itching 30 tablet 5 Active Active Problems Problem [...] Scheduled appointment with psychiatric, April 01, [facility] in [place]. Microcytic anemia 07/02/2015 SOB (shortness of breath) [...] on file Legal Sex Male 6:27 AM ADJUNCT PHYSICAL EDUCATION INSTRUCTOR Gender Identity Not on file Sexual [...] 50+ (1 of 2 - PCV) 02/09/1991 DIABETES RETINOPATHY SCREENING 09/01/2019 DIABETES-HGB A1C 01/30/2020 08/01/2019 DIABETES-FOOT EXAM WITH MONOFILAMENT 08/01/2020 08/01/2019 DIABETES-SERUM CREATININE 10/20/20202019, 07/29/2015, 10/09/2013, Additional history exists DTAP/TDAP/TD VACCINES (2 - Td or Tdap) 09/13/2021 09/13/2011 ZOSTER VACCINE (1 of 2) 02/09/2022 DEPRESSION SCREENING 09/13/2024 DIABETES - URINE PROTEIN SCREENING 09/13/2024 10/20/2019 COVID-19 VACCINE ( season) 2025 INFLUENZA VACCINE (#1) 2025 HEPATITIS C SCREENING Completed 10/20/2019 HIB [...] URINE RANDOM PANEL Routine 10/20/2019 2:41 PM ADJUNCT PHYSICAL EDUCATION INSTRUCTOR Type 2 diabetes mellitus without complication, without long-term current use of insulin COMPREHENSIVE METABOLIC PANEL Routine 10/20/2019 2:41 PM ADJUNCT PHYSICAL EDUCATION INSTRUCTOR Type 2 diabetes mellitus without complication, without long-term current use of insulin Obesity with serious comorbidity, unspecified classification, unspecified obesity type HEPATITIS C AB W RFLX VERIFICATION Routine 10/20/2019 2:41 PM ADJUNCT PHYSICAL EDUCATION INSTRUCTOR Type 2 diabetes mellitus without complication, without long-term current use of insulin Need for hepatitis C screening test HEMOGLOBIN A1C - POINT OF CARE (AMB) [facility] Routine 08/01/2019 Type 2 diabetes mellitus without complication, without long-term current use of insulin from Last 3 Months or Most Recently Relevant to Health Maintenance Results * HEPATITIS C AB W RFLX VERIFICATION (10/20/2019 2:41 PM ADJUNCT PHYSICAL EDUCATION INSTRUCTOR) Hepatitis C Antibody <0.1 0.0 - 0.9 s/co ratio 10/21/2019 8:18 AM ADJUNCT PHYSICAL EDUCATION INSTRUCTOR [facility] ([facility]) Blood BLOOD SPECIMEN / Unknown Lab Venipuncture / Unknown 10/20/2019 2:41 PM ADJUNCT PHYSICAL EDUCATION INSTRUCTOR 10/20/2019 3:01 PM ADJUNCT PHYSICAL EDUCATION INSTRUCTOR Narrative [facility] ([facility]) - 10/21/2019 8:18 AM ADJUNCT PHYSICAL EDUCATION INSTRUCTOR [facility]formed at: - [facility] [address] [place], [place] [id number] Lifestyle Block Farmer: Carlos Woods PhD, Phone: [phone] Radha Palafox [facility] - CHEMISTRY ORD ERABLES Final Result Performing Organization Address [facility] Co de Phone Number [facility] ([facility]) [address] [place] [address], [facility] * (ABNORMAL) MICROALB/CREAT RATIO URINE RANDOM PANEL (10/20/2019 2:41 PM ADJUNCT PHYSICAL EDUCATION INSTRUCTOR) Pathologist [facility] Albumin Random Urine 65.0 Not Established mcg/mL 10/20/2019 4:57 PM ADJUNCT PHYSICAL EDUCATION INSTRUCTOR [facility] Creatinine Urine 143 Not Established mg/dL 10/20/2019 4:57 PM [facility] Comment: Result obtained by dilution. Urine Albumin/Creati nine Ratio 45(H) <30 mg/g 10/20/2019 4:57 PM [facility] Urine URINE SPECIMEN OBTAINED BY CLEAN CATCH PROCEDURE / Unknown Collection / Unknown 10/20/2019 2:41 PM ADJUNCT PHYSICAL EDUCATION INSTRUCTOR 10/20/2019 3:01 PM ADJUNCT PHYSICAL EDUCATION INSTRUCTOR [facility] - URINE MATTRESS STRIPPER RY ORDERABLES Final Result Performing Organization Address [facility]/ZIP Co de Phone Number [address] [phone] * (ABNORMAL) COMPREHENSIVE METABOLIC PANEL (10/20/2019 2:41 PM ADJUNCT PHYSICAL EDUCATION INSTRUCTOR) Pathologist [facility] BUN 11 7 - 26 mg/dL 10/20/2019 3:33 PM [facility] Creatinine 0.9 0.6 - 1.2 mg/dL 10/20/2019 3:33 PM [facility] Sodium 142 136 - 145 mmol/L 10/20/2019 3:33 PM [facility] Potassium 3.3(L) 3.5 - 4.5 mmol/L 10/20/2019 3:33 PM [facility] Chloride 104 98 - 107 mmol/L 10/20/2019 3:33 PM [facility] CO2 25 22 - 29 mmol/L 10/20/2019 3:33 PM [facility] Glucose 96 70 - 115 mg/dL 10/20/2019 3:33 PM [facility] Calcium 9.5 8.4 - 10.2 mg/dL 10/20/2019 3:33 PM [facility] Protein Total 8.2 6.0 - 8.3 g/dL 10/20/2019 3:33 PM [facility] Albumin 4.2 3.4 - 5.0 g/dL 10/20/2019 3:33 PM [facility] Bilirubin Total 1.7(H) 0.2 - 1.2 mg/dL 10/20/2019 3:33 PM [facility] Alkaline Phosphatase 75 40 - 150 Units/L 10/20/2019 3:33 PM [facility] ALT 60(H) 0 - 55 Units/L 10/20/2019 3:33 PM [facility] AST 63(H) 5 - 34 Units/L 10/20/2019 3:33 PM [facility] Anion Gap 16 8 - 18 10/20/2019 3:33 PM [facility] BUN/Creatinine Ratio 12 7 - 23 10/20/2019 3:33 PM [facility] Osmolality Calculated 293 270 - 300 mOsm/kg 10/20/2019 3:33 PM [facility] Albumin/Globulin Ratio 1.1 1.1 - 2.3 10/20/2019 3:33 PM [facility] eGFR >60 >60 mL/min/1.7 3 m2 10/20/2019 3:33 PM [facility] Blood BLOOD SPECIMEN / Unknown Lab Venipuncture / Unknown 10/20/2019 2:41 PM ADJUNCT PHYSICAL EDUCATION INSTRUCTOR 10/20/2019 3:01 PM [facility] us Radha Palafox STONE POLISHER MACHINE-MARINE OPERATIONS COORDINATOR LAB - CHEMISTRY ORD ERABLES Final Result [address] [phone] * HEMOGLOBIN A1C - POINT OF CARE (AMB) U (08/01/2019) Hemoglobin A1c POCT 7.5 BLOOD SPECIMEN / Unknown 08/01/2019 Radha Palafox STONE POLISHER MACHINE-MARINE OPERATIONS COORDINATOR LAB - POINT OF CARE ORDERABLES Final Result from Last 3 Months or Most Recently Relevant to Health Maintenance Insurance [facility]
--- OUTSIDE RECORDS SUMMARY | 2025-08-30 11:35 | XMS_ITS | Clinical Summary ---
Author Organization [id number] Address [address] [place] [phone] Care Team Providers Care Supervisor Print Line Name Role Phone Miscellaneous, Not In [...] total) by mouth daily 60 capsule 4 Active hyoscyamine (LEVSIN) 0.125 mg tabletIndications :Urinary [...] pain and frequency. -See either PCP or sand hauler to manage diabetes. -I told patient that if he fails this, we may need to look at further testing for penile pain. Patient verbalized understanding. OAB (overactive bladder) 11/09/2020 Assessment & Plan (11/13/2020 6:03 PM FINISH CLEANER): -Symptoms are suggestive of OAB. Prostate size [...] 11/09/2020 Assessment & Plan (11/09/2020 5:21 PM FINISH CLEANER): -Patient has history of diverticulitis, benign tumor [...] appointment. Assessment & Plan (11/09/2020 5:20 PM FINISH CLEANER): -CT showing non-obstructing stones in kidney. Patient [...] 0 Assessment & Plan (11/16/2019 4:14 PM FINISH CLEANER): Old psychiatrist, Dr Easley, in [place]. Rx'ed [...] 11/16/2019 Assessment & Plan (11/16/2019 4:11 PM FINISH CLEANER): Not taking meds as prescribed. Pt asked to leave before A1C could be tested. Severe obesity (BMI 35.0-35.9 with comorbidity) 11/16/2019 Assessment & Plan (11/16/2019 4:14 PM FINISH CLEANER): Body mass index is 35.12 kg/m . Unable to certified travel counselor him given that he was escorted [...] (03/12/2017): Scheduled appointment with psychiatric, April 01, [facility] in [place]. Anxiety 03/12/2017 Obesity (BMI 30-39.9) 03/12/2017 Benzodiazepine [...] 11/09/2020 Assessment & Plan (11/16/2019 3:59 PM FINISH CLEANER): Severe with h/o panic attacks with xanax [...] on prior controlled substance use on [facility]. 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 Testing performed by: [facility], [address] [place] [address]., [id number] Blood 03/01/2025 7:26 PM CDT 03/01/2025 7:31 PM CDT us Raza Bahena Jr., MD LAB BLOOD ORDERABLES Fi nal Result [address] [place] [address] * (ABNORMAL) Hemoglobin A1c (01/22/2020 9:58 AM [...] Sheffield MD LAB BLOOD ORDERABLES Final Result [address] [phone] * (ABNORMAL) Lipid panel (01/22/2020 9:58 AM [...] Risk: >=240 mg/dL HDL Cholesterol 22 mg/dL [facility]NOTE 2] Comment: Reference Ranges: Males: >=40 mg/dL Females: [...] Sheffield MD LAB BLOOD ORDERABLES Final Result [facility] [address] [place], [place] [id number] [place] [address] * COLONOSCOPY REPORT (07/01/2017) Anatomical Region Laterality Modality Other us Provider Scanning GI PROCEDURE ORDERABLES Edited Result - Final from Last 3 Months or Most Recently Relevant to Health Maintenance Insurance [facility] Care Teams Supervisor Print Line Relationship Specialty Start Date End Date Unknown, Notinfile PCP - General 08/01/24 Miscellaneous, Not In File 11/16/19
--- OUTSIDE RECORDS SUMMARY | 2025-08-30 11:35 | XMS_ITS | Patient Health Record ---
Author Organization [facility] Address [address] [facility] [address] G[address]pie [address] [place] [phone] Reason For Referral No Information Plan Of Treatment No Information
--- OUTSIDE RECORDS SUMMARY | 2025-08-30 11:35 | XMS_ITS | Encounter Summary ---
Author Organization [facility] Health Address [address] [facility] [place] [address] Care Team Providers Care Online Trader Name Role Phone Unavailable Primary Care Provider Unavailabl e Reason for Visit * Reason Onset Date Comments Erroneous encounter-disregard 10/20/2019 Encounter Details Date Type Department Care Team (Late st Contact Info) Description 10/20/2019 Telephone [facility] [address] [facility] [address] [place] [address] Radha Palafox, END LATHE OPERATOR-TRANSCRIPT EVALUATOR [address] OF [facility] [place] [phone] Erroneous encounter-disregard Social History Tobacco Use Types Packs/Day Years Used Date Smoking Tobacco: Former Smokeless Tobacco: Never Alcohol Use Standard Drinks/Week Comments No 0 (1 standard drink = 0.6 oz pur e alcohol) Sex and Gender Information Value Date Recorded Sex Assigned at Not on file Legal Sex Male 6:27 AM HYDROMETALLURGICAL ENGINEER Gender Identity Not on file Sexual Orientation Not on file documented as of this encounter Miscellaneous Notes * Telephone Encounter - Lynne Mendes - 10/20/2019 10:46 AM CST err OMETALLURGICAL ENGINEER documented in this encounter Plan of Treatment Not on file documented as of this encounter Visit Diagnoses Not on filedocumented in this encounter
--- OUTSIDE RECORDS SUMMARY | 2025-08-30 11:35 | XMS_ITS | Encounter Summary ---
Author Organization [facility] Health Address [address] [place] [address] Care Team Providers Care Rotary Drier Feeder Name Role Phone Unavailable Primary Care Provider Unavailabl e Reason for Visit * Reason Onset Date Comments Blood Pressure 12/01/2019 Encounter Details Date Type Department Care Team (Late st Contact Info) Description 12/01/2019 Telephone [facility] [address] [facility] [address] [place] [address] Radha Palafox, STAFF ELECTRICAL ENGINEER-MANAGER PAYMENT [address] OF [facility] [place] [phone] Blood Pressure Social History Tobacco Use Types Packs/Day Years Used Date Smoking Tobacco: Former Smokeless Tobacco: Never Alcohol Use Standard Drinks/Week Comments No 0 (1 standard drink = 0.6 oz pur e alcohol) Sex and Gender Information Value Date Recorded Sex Assigned at Not on file Legal Sex Male 6:27 AM RESOURCE DEVELOPMENT MANAGER Gender Identity Not on file Sexual Orientation Not on file documented as of this encounter Miscellaneous Notes * Telephone Encounter - Venus Powell RN - 12/01/2019 10:51 AM CDT Carlos Mcgee was transferred to nc. He is demanding to speak to someone [...] also stated that he know that Lilian JOB SUPERINTENDENT still is responsible for his care for 30 days. I tried to let him know that if his BP went down after a breathing treatment heprobably did not necessarily need another BP medication. He became upset and stated that he takes his BP in stores and that yesterday it was 153/96. He would like additional medication sent to [facility] in [place], [place]. Mallory in the Call Center stated [...]
--- OUTSIDE RECORDS SUMMARY | 2025-08-30 11:35 | XMS_ITS | Encounter Summary ---
Author Organization [facility] Address [address] [facility] [place] [address] Care Team Providers Care Vice President Risk Management Name Role Phone Unavailable Primary Care Provider Unavailabl e Reason for Visit * Reason Onset Date Comments Blood Pressure 12/01/2019 Encounter Details Date Type Department Care Team (Late st Contact Info) Description 12/01/2019 Nurse Triage [facility] Internal Medicine [address] [facility] [address] [place] [address] Radha Palafox, CONSUMER INSIGHTS INTERN-SAFETY OFFICER [address] OF [facility] [place] [phone] Blood Pressure Social History Tobacco Use Types Packs/Day Years Used Date Smoking Tobacco: Former Smokeless Tobacco: Never Alcohol Use Standard Drinks/Week Comments No 0 (1 standard drink = 0.6 oz pur e alcohol) Sex and Gender Information Value Date Recorded Sex Assigned at Not on file Legal Sex Male 6:27 AM IMMUNOLOGY TEACHER Gender Identity Not on file Sexual Orientation Not on file documented as of this encounter Miscellaneous Notes * Telephone Encounter - Mallory Flores RN - 12/01/2019 10:17 AM CDT Reason for Disposition [1] Systolic BP >= 160 OR Diastolic >= 100 AND [2] cardiac or neurologic symptoms (e.g., chest pain, difficulty breathing, unsteady gait, blurred vision) Protocols used: HIGH BLOOD [id number] Patient given ER disposition, patient verbalizes understanding. [...]
--- OUTSIDE RECORDS SUMMARY | 2025-08-30 11:35 | XMS_ITS | Encounter Summary ---
Author Organization [facility] Address [address] [facility] [place] [address] Care Team Providers Care Sort Manager Name Role Phone Unavailable Primary Care Provider Unavailabl e Reason for Visit * Reason Onset Date Comments Med Question 10/18/2019 Med Question 10/19/2019 Order 10/20/2019 XRAY Follow-up 10/20/2019 Encounter Details Date Type Department Care Team (Late st Contact Info) Description 10/18/2019 Telephone [facility] [address] [address] Radha Palafox, HOUSEKEEPER/CUSTODIAN/LAUNDRY WORKER-SOCIAL SECRETARY [address] OF [facility] [place] [id number] Med Question; Med Question; Order (XRAY); Follow-up Social History Tobacco Use Types Packs/Day Years Used Date Smoking Tobacco: Former Smokeless Tobacco: Never Alcohol Use Standard Drinks/Week Comments No 0 (1 standard drink = 0.6 oz pur e alcohol) Sex and Gender Information Value Date Recorded Sex Assigned at Not on file Legal Sex Male 6:27 AM MEDICAID BILLING CLERK Gender Identity Not on file Sexual Orientation Not on file documented as of this encounter Miscellaneous Notes * Telephone Encounter - Remedios Catalan LPN - 10/20/2019 2:05 PM MEDICAID BILLING CLERK Pt came to 207 window. Pt is demanding xrays be done before his appointment. Pt is demanding that the nurse call me about this. I came early to have this done. I thought you people were here to helppatients. I want this done before the appointment because I want the results now. CAID BILLING CLERK * Telephone Encounter - Lynne Mendes - 10/20/2019 1:47 PM CST Upon chart review, no new update message from CONTINUOUS IMPROVEMENT COACH [employer] or xray order in system at this time. Outbound to pt to inform [place] called pt to inform of above update and pt verbalized understanding. Pt reports he is at [facility] nowand is going to go to office to see if can get an order for an Xray and then go to the lab to get labs drawn. No further questions or concerns at this time. CB# [phone] (home) Routed to provider for further review Routed to [facility] Nurse Communication for further review CAID BILLING CLERK * Telephone Encounter - Lynne Mendes - 10/20/2019 12:35 PM CST Upon chart review, [place] checking for update from VENTURA Sheldonchen to c/b pt. As of this time, no new update from [facility]UR[facility] Palafox. Will continue to monitor for update. CAID BILLING CLERK * Telephone Encounter - Lynne Mendes - 10/20/2019 10:54 AM CST Outbound to [facility] Venus - unable to reach Upon chart review, Liz Catalan forwarded message to VENTURA Palafox for review. CAID BILLING CLERK * Telephone Encounter - Lynne Mendes - 10/20/2019 9:54 AM CST Pt calling in b/c he is coming in to office today for OV w/ CONTINUOUS IMPROVEMENT COACH [facility]d[employer] @ 3:20pm and requesting an xray for kidney/left sided pain. Pt reports forgot to ask CONTINUOUS IMPROVEMENT COACH [facility] yesterday during phone conversation for xray and is coming into city and would like to get xray before OV today so CONTINUOUS IMPROVEMENT COACH Vivienne canbe able to read xray before [...] needmore than 20min w/ the doctor. CB# [phone] (home) Routed to provider for further review HIGH PRIORITY CAID BILLING CLERK * Telephone Encounter - Radha Palafox APRN-CNP - 10/19/2019 1:18 PM MEDICAID BILLING CLERK Phone call--multiple vague complaints of not feeling [...] tomorrow. Claims he will keep appt tomorrow. MLEISA Diaz CAID BILLING CLERK * Telephone Encounter - Jovan Grewal - [...] with the provider today, call back number [phone] provided Message routed to provider CAID BILLING CLERK * Telephone Encounter - Mallory Flores RN [...] like this he had to take xanax. [phone] CAID BILLING CLERK documented in this encounter Plan of Treatment Not on file documented as of this encounter Visit Diagnoses Not on filedocumented in this encounter
--- OUTSIDE RECORDS SUMMARY | 2025-08-30 11:36 | XMS_ITS | Encounter Summary ---
Author Organization [facility] Address 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
--- OUTSIDE RECORDS SUMMARY | 2025-08-30 11:36 | XMS_ITS | Clinical Summary ---
Author Organization [facility] [place] Address [address] [place] [address] Care Team Providers Care Leasing Agent Name Role Phone Unavailable Primary Care Provider Unavailabl e Social History Tobacco Use Types Packs/Day Years Used Date Smoking Tobacco: Never Assessed Sex and Gender Information Value Date Recorded Sex Assigned at Not on file Legal Sex Male 9:26 PM EST Gender Identity Not on file Sexual Orientation Not on file Plan of Treatment Not on file Medical Devices Not on file
--- OUTSIDE RECORDS SUMMARY | 2025-08-30 11:36 | XMS_ITS | Encounter Summary ---
Author Organization [facility] Address 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
--- OUTSIDE RECORDS SUMMARY | 2025-08-30 11:36 | XMS_ITS | Encounter Summary ---
Author Organization [facility] Address 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
--- OUTSIDE RECORDS SUMMARY | 2025-08-30 11:36 | XMS_ITS | Encounter Summary ---
Author Organization [facility] Address [address] [place] [address] Care Team Providers Care Pallet Stone Positioner Name Role Phone Howard Trinidad MD Primary Care Provider Un available Encounter Details Date Type Department Care Team (Late st Contact Info) Description 04/27/2009 Emergency [facility], Authorized P NO ADDRESS ON FILE Balta Sahu MD [address] [place] [address] [place] [address] Edin Marcum MD [place] [address] Social History Tobacco Use Types Packs/Day Years Used Date Smoking Tobacco: Never Assessed Sex and Gender Information Value Date Recorded Sex Assigned at Not on file 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 FINDINGS: The heart and mediastinum are normal. There is no infiltrate, contusion, pneumothorax or pleural fluid. The visualized bony thorax is normal. IMPRESSION: Normal AP chest. . Dictated by: LEANDER GORDON 04/27/2009 07:51 Electronically signed by: LEANDER GORDON 04/27/2009 08:07 Transcribed: 04/27/2009 07:56 SMM Procedure Note Leander Gordon 04/27/2009 [place] [address] [place], [place] [address] Admit Date: 04/27/2009 CARLOS KELLY Sex: M Admit Prov: BALTA SAHU Date: 1970 Primary Care Prov: CMRN: [id number] [facility] [address] [place] [address] IMAGING SERVICES Ordering Prov: N/A Interpretation PORTABLE [...] CDT) MCH 27.8 27.2 - 32.6 pg [facility] MPV 9.7 9.3 - 12.4 fL [facility] HEMATOCRIT 42.4 40.0 - 48.0 % [facility] RDW-STDEV 41.9 37.1 - 48.7 fL [facility] RBC 5.29 4.50 - 5.40 M/uL [facility] MCHC 34.7 31.5 - 35.5 % [facility] MCV 80.2(L) 82.0 - 99.0 fL [facility] PLATELETS 187 140 - 350 K/uL [facility] HEMOGLOBIN 14.7 13.6 - 16.5 g/dL [facility] RDW 14.7(H) 11.5 - 14.5 % [facility] WBC 7.2 4.0 - 9.8 K/uL [facility] BASOPHILS 0 0 - 2 % [facility] BASOPHILS ABSOLUTE 0.02 0.00 - 0.20 K/uL [facility] MONOCYTES 8 3 - 13 % [facility] MONOCYTE ABSOLUTE 0.56 0.10 - 1.30 K/uL [facility] NEUTROPHILS 56 45 - 70 % [facility] [place] NEUTROPHIL ABSOLUTE 4.00 1.90 - 7.00 K/uL [facility] EOSINOPHILS 2 0 - 7 % [facility] [place] [facility] EOSINOPHIL ABSOLUTE 0.16 0.00 - 0.70 K/uL [facility] LYMPHOCYTES 34 16 - 45 % [facility] [place] [place] [facility] LYMPHOCYTE ABSOLUTE 2.43 0.70 - 4.50 K/uL [facility] Blood specimen (specimen) 04/27/2009 12:08 AM CDT 04/27/2009 12:13 AM CDT Edin Marcum MD HEMATOLOGY ORDERABLES Edited Performing Organization Address [facility] Co de Phone Number [facility] CLIA# [id number] [address] [place] [address] * CARDIAC ENZYMES (04/27/2009 12:08 AM CDT) [facility] TROPONIN T <0.01 <=0.03 ng/mL [facility] TROPONIN T INTERP Negative [facility] Blood specimen (specimen) 04/27/2009 12:08 AM CDT 04/27/2009 12:13 AM CDT Edin Marcum MD CHEMISTRY ORDERABLES Edited Performing Organization Address [facility] de Phone Number [facility] CLIA# [id number] [address] [place] [address] * (ABNORMAL) COMPREHENSIVE METABOLIC PANEL (04/27/2009 12:08 AM CDT) [facility] CREATININE 0.92 0.67 - 1.17 mg/dL [facility] ALT 130(H) 0 - 41 U/L [facility] SODIUM 141 135 - 145 mmol/L [facility] ALKALINE PHOSPHATASE 71 40 - 129 U/L [facility] CO2 32(H) 22 - 30 mmol/L [facility] BILIRUBIN TOTAL 1.2(H) 0.2 - 1.0 mg/dL [facility] POTASSIUM 3.7 3.5 - 4.9 mmol/L [facility] TOTAL PROTEIN 8.3 6.3 - 8.6 g/dL [facility] GLUCOSE 81 65 - 99 mg/dL [facility] AST 118(H) 12 - 38 U/L [facility] BUN 10 6 - 20 mg/dL [facility] CALCIUM 9.7 8.6 - 10.2 mg/dL [facility] ALBUMIN 4.6 3.4 - 4.8 g/dL [facility] CHLORIDE 101 96 - 108 mmol/L [facility] GFR, >60 >=60 mL/min/1. 7 sq meter [facility] GFR >60 >=60 mL/min/1. 7 sq meter [facility] Comment: Modification of Diet in Renal Disease (MDRD) study formula. Estimated GFR rate interpretative information for both Americans and non- Americans is available on the [facility] Intranet at: [email or web address] Select: Lab Policies and Procedures Select: Reference Ranges - GFR Blood specimen (specimen) 04/27/2009 12:08 AM CDT 04/27/2009 12:13 AM CDT us Edin Marcum MD CHEMISTRY ORDERABLES Edited [facility] CLIA# [id number] [address] [place] [address] documented in this encounter Visit Diagnoses Not on filedocumented in this encounter Care Teams Pallet Stone Positioner Relationship Specialty Start Date End Date Howard Trinidad MD PCP - General Family Practice 01/25/16 01/26/16 documented as of this encounter
--- OUTSIDE RECORDS SUMMARY | 2025-08-30 11:36 | XMS_ITS | Patient Health Record ---
Author Organization [facility] Address [address] [place] [address] Care Team Providers Care Professional Services Specialist Name Role Phone Migration, Provider Unavailable Unavailable Reason For Referral No Information Encounters Encounter Location Date Provider Diagnosis [facility] [address] [place] [address] 06/30/[address] [facility] [address] [place] [address] 07/01/2025 Provider Migration Plan Of Treatment No Information
--- OUTSIDE RECORDS SUMMARY | 2025-08-30 11:36 | XMS_ITS | Encounter Summary ---
Author Organization [facility] Address 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
--- OUTSIDE RECORDS SUMMARY | 2025-08-30 11:36 | XMS_ITS | Encounter Summary ---
Author Organization [facility] Address 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
--- OUTSIDE RECORDS SUMMARY | 2025-08-30 11:36 | XMS_ITS | Encounter Summary ---
Author Organization [facility] Address 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
--- OUTSIDE RECORDS SUMMARY | 2025-08-30 11:36 | XMS_ITS | Encounter Summary ---
Author Organization [facility] Address 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 Medications: [facility] Medication reactions: [facility] <<<<<<<< TRIAGE NOTE >>>>>>>> Triage Note: Program Research Specialist Seema Cueva added this note on [...] they will have to speak with his body press operator because he is upset with the [...] on filedocumented in this encounter Care Teams Curb Worker Relationship Specialty Start Date End Date Howard Triindad MD PCP - General Family Practice 01/25/16 01/26/16 documented as of this encounter
--- OUTSIDE RECORDS SUMMARY | 2025-08-30 11:36 | XMS_ITS | Encounter Summary ---
Author Organization [facility] Address 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
--- OUTSIDE RECORDS SUMMARY | 2025-08-30 11:36 | XMS_ITS | Encounter Summary ---
Author Organization [employer] [facility] Address [address] [place] [address] Care Team Providers Care Rehabilitation Clerk Name Role Phone Howard Trinidad MD Primary Care Provider Un available Encounter Details Date Type Department Care Team (Late st Contact Info) Description 03/02/2005 Outpatient Historical [facility] [address] 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
--- OUTSIDE RECORDS SUMMARY | 2025-08-30 11:36 | XMS_ITS | Encounter Summary ---
Author Organization [facility] Address 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
--- OUTSIDE RECORDS SUMMARY | 2025-08-30 11:36 | XMS_ITS | Encounter Summary ---
Author Organization [facility] Address 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
--- OUTSIDE RECORDS SUMMARY | 2025-08-30 11:36 | XMS_ITS | Encounter Summary ---
Author Organization [facility] Address [address] [place] [address] Care Team Providers Care Market Sales Manager Name Role Phone Unavailable Primary Care Provider Unavailabl e Reason for Visit * Reason Onset Date Comments Order 08/02/2019 Encounter Details Date Type Department Care Team (Late st Contact Info) Description 08/02/2019 Telephone [facility] General Internal Medicine [address] [facility] [facility] [address] [place] [address] Radha Palafox, REED DIPPER-KICK PRESS OPERATOR [address] OF [facility] [place] [address] Order Social History Tobacco Use Types Packs/Day Years Used Date Smoking Tobacco: Former Smokeless Tobacco: Never Alcohol Use Standard Drinks/Week Comments No 0 (1 standard drink = 0.6 oz pur e alcohol) Sex and Gender Information Value Date Recorded Sex Assigned at Not on file Legal Sex Male 6:27 AM OPHTHALMIC TECH Gender Identity Not on file Sexual Orientation [...] Sleep study ordered and referral to GI. HALMIC TECH documented in this encounter Plan of Treatment Not on file documented as of this encounter Visit Diagnoses Diagnosis Loud snoring- Primary Class 3 severe obesity with serious comorbidity in adult, unspecified BMI, unspecified obesity type (HCC) Sleep apnea, unspecified type documented in this encounter
--- OUTSIDE RECORDS SUMMARY | 2025-08-30 11:36 | XMS_ITS | Encounter Summary ---
Author Organization [facility] Address 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
--- OUTSIDE RECORDS SUMMARY | 2025-08-30 11:36 | XMS_ITS | Encounter Summary ---
Author Organization [facility] Address [address] [place] [address] Care Team Providers Care Government Service Executive Name Role Phone Howard Trinidad MD Primary Care Provider Un available Encounter Details Date Type Department Care Team (Late st Contact Info) Description 02/23/2007 Emergency [facility] Patrickevens Ian, DO [address] [facility] [address] [place] [phone] Er, Authorized P NO ADDRESS ON FILE Anxiety State, Unspecified (Primary Dx) Social History Tobacco Use Types Packs/Day Years Used Date Smoking Tobacco: Never Assessed Sex and Gender Information Value Date Recorded Sex Assigned at Not on file 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
--- OUTSIDE RECORDS SUMMARY | 2025-08-30 11:36 | XMS_ITS | Data Portability ---
Author Organization ID - [facility] OFFICE Address [address] [place] [id number] Assessment No assessment recorded. Plan of Treatment Reminders Order Date Submit Date Provider Last Modified By Organization Details Last Modified Time Details Appointments None recorded. Lab None recorded. Referral None recorded. Procedures None recorded. Surgeries None recorded. Imaging None recorded. Medication Orders losartan 50 mg tablet 2018 019 INTERFACE [id number], [address], [place], [id number], 9 12:59:42 Patient TargetsNo targets recorded. Patient Instructions Encounter Date Encounter Id Patient Instructions Last Modified By Organization Details Last Modified Time 03/30/2019 [id number] post-traumatic stress disorder (PTSD): care instructions [email or web address] Not available 03/30/2019 19:06:18 elevated blood pressure: care instructions [email or web address] Not available 03/30/2019 19:06:18 panic attacks: care instructions [email or web address] Not available 03/30/2019 19:06:18 high cholesterol: care instructions [email or web address] Not available 03/30/2019 19:06:18 04/07/2019 [id number] post-traumatic stress disorder (PTSD): care instructions [email or web address] Not available 04/07/2019 12:59:08 elevated blood pressure: care instructions [email or web address] Not available 04/07/2019 12:59:08 panic attacks: care instructions [email or web address] Not available 04/07/2019 12:59:08 high cholesterol: care instructions [email or web address] Not available 04/07/2019 12:59:08 Reason for Referral None Reported. Results Created Date Observation Date Name Description Value Unit Range Abnormal Flag Note LastModifiedBy Organization Detail LastModifiedTime 04/10/2003/30/2019 jennifer gray am No observ ation record ed. [email or web address] Not Available 2018 15:01:08 Result Notes None recorded. Problems Name Problem SNOMED Code Status Onset Date Resolution Date Notes Provider Name and Address Organization Details Recorded Time Asthma 156667405 Active 2018 Hala Jarad [place], [place] - [facility] 9 05:47:59 Anxiety 31964105 Active 2018 [place] [facility] 9 05:48:07 Allergic rhinitis 57536743 Active 2018 [place] - [facility] 9 05:49:06 Hyperlipi demia 24969664 Active 2018 [place] - [facility] 9 05:49:18 Diverticu litis 344202119 Active 2018 [place] [facility] 9 05:50:11 Gastroeso phageal reflux disease 564278016 Active 2018 [place] [facility] 9 05:50:17 Gastroint estinal hemorrhag e 11608645 Active 2018 H[place] [facility] 9 05:50:35 Kidney stone 19472963 Active 2018 H[place] [facility] 9 05:51:19 Type 2 diabetes mellitus 86922250 Active 2018 H[place] [facility] 9 05:51:59 Obesity 734655812 Active 2018 H[place] [facility] 9 05:52:07 Anemia 801090075 Active 2018 [place] [facility] 9 05:52:19 Depressiv e disorder 08689082 Active 2018 H[place] - [facility] 9 05:52:57 Coronary arteriosc lerosis 58651914 Active 2018 [facility] 8 Non obstructi ve coronary artery disease. LVEDP is 16 mmHg Vy Bermudez [place], [place] - [facility] 9 13:55:30 Pain in bilateral legs 032855324560 62004 Active 2018 Lottie Retana [facility] 9 14:20:41 Obstructi ve sleep apnea syndrome 68300750 [facility] 9 14:43:21 Panic attack 352682317 [facility] 9 15:02:54 Post-trau matic stress disorder 91863930 [facility] 9 19:02:43 Hypertens israel disorder 35086883 Active 2018 [facility] 9 19:04:07 Problem Notes None recorded. Procedures Surgical History Date Name Laterality Status Provider Name and Address Organization Details Recorded Time cholecystectomy completed Mcclellanwellington Bermudez [facility] 01/28/2019 14:15:34 Imaging Results None recorded. Procedure Notes None recorded. Medical Equipment None Reported. Allergies Allergen ID Allergen Name Allergen Category Reaction Reaction Severity Criticality Documentation Date Start Date Code Code System Note Provider Name and Address Organization Details Recorded Time 8198 flavoxate medicatio n Not available Not available Not available 01/25/2019 4440 RxNorm Hala Jarad [facility] 9 05:53:27 8199 sulfameth oxazole medicatio n Not available Not available Not available 01/25/2019 94750 RxNorm Hala Jarad [facility] 9 05:53:52 8200 famotidin e medicatio n Not available Not available Not available 01/25/2019 4278 RxNorm Kristofera Jarad [facility] 9 05:54:01 8201 nebivolol medicatio n Not available Not available Not available 01/25/2019 65583 RxNorm Hala Jarad [facility] 9 05:54:16 8202 paroxetin e Not available Not available Not available Not available 01/25/2019 97345 RxNorm Kristofera Jarad [facility] 9 05:54:47 8203 barium sulfate medicatio n Not available Not available Not available 01/25/2019 1331 RxNorm Hima Abraham [facility] 9 05:55:18 8204 codeine medicatio n Not available Not available Not available 01/25/2019 2670 RxNorm Hima Abraham [facility] 9 05:55:30 8205 dicyclomi ne medicatio n Not available Not available Not available 01/25/2019 3361 RxNorm Hima Abraham [facility] 9 05:55:39 8206 Iodinated contrast media (substanc e) medicatio n Not available Not available Not available 01/25/2019 80419 2004 SNOMED Kritsofera Jarad [facility] 9 05:55:57 8207 levofloxa chalino medicatio n Not available Not available Not available 01/25/2019 46942 RxNorm Hima Abraham [facility] 9 05:56:15 8208 lidocaine medicatio n Not available Not available Not available 01/25/2019 6387 RxNorm Hima Abraham [facility] 9 05:56:48 8209 morphine medicatio n Not available Not available Not available 01/25/2019 7052 RxNorm Hima Abraham [facility] 9 05:56:59 8210 ondansetr on medicatio n Not available Not available Not available 01/25/2019 37695 RxNorm Hima Abraham [facility] 9 05:57:17 8211 oxycodone medicatio n Not available Not available Not available 01/25/2019 7804 RxNorm Hima Abraham [facility] 9 05:57:32 Medications Name Sig Start Date Stop Date Status Note LastModified by Organization Details LastModified Time losartan 50 mg tablet Take 1 tablet every day by oral route. 2018 active Not Available Not Available Not Avai lable amoxicillin 500 mg capsule 03/30 completed Not Available Not Available Not Available prednisone 10 mg tablet 03/30 completed Not Available Not Available Not Available diphenhydra mine 50 mg capsule active Not Available Not Available Not Available aspirin 325 mg tablet Take 1 tablet every day by oral route. 03/30 completed Not Available Not Available Not Available atenolol 100 mg tablet Take 1 tablet every day by oral route as directed. 2018 active Not Available Not Available Not Avai lable ketotifen 0.025 % (0.035 %) eye drops INSTILL 1 DROP INTO AFFECTED EYE(S) BY OPHTHALMI C ROUTE 2 TIMES PER DAY 03/30 completed Not Available Not Available Not Available sucralfate 1 gram tablet 03/30 completed Not Available Not Available Not Available prednisone 20 mg tablet 03/30 completed Not Available Not Available Not Available Phenergan 25 mg tablet Take 1 tablet every day by oral route as needed. active prn Not Available Not Available No t Available metronidazo le 500 mg tablet Take 1 tablet twice a day by oral route. 03/30 completed Not Available Not Available Not Available ciprofloxac in 500 mg tablet Take 1 tablet every 12 hours by oral route for 7 days. 03/30 completed Not Available Not Available Not Available omeprazole 40 mg capsule,del ayed release Take 1 capsule every day by oral route. active Not Available Not Available No t Available butalbital- acetaminoph en-caffeine 50 mg-325 mg-40 mg tablet 03/30 completed Not Available Not Available Not Available ondansetron 8 mg disintegrat ing tablet 03/30 completed Not Available Not Available Not Available ketorolac 0.5 % eye drops 03/30 completed Not Available Not Available Not Available amoxicillin 875 mg tablet 02/08 completed Not Available Not Available Not Available famotidine 20 mg tablet active Not Available Not Available Not Available aspirin 325 mg tablet,jennifer yed release 03/30 completed Not Available Not Available Not Available nystatin 100,000 unit/gram topical cream 03/30 completed Not Available Not Available Not Available prednisone 50 mg tablet Take 1 tablet every day by oral route for 5 days. 03/30 completed Not Available Not Available Not Available hyoscyamine 0.125 mg sublingual tablet active Not Available Not Available Not Available omeprazole 20 mg capsule,del ayed release 03/30 completed Not Available Not Available Not Available hydrocortis one 2.5 % topical cream 03/30 completed Not Available Not Available Not Available alprazolam 2 mg tablet Take 1 tablet 3 times a day by oral route. active Not Available Not Available No t Available mirtazapine 15 mg tablet 03/30 completed Not Available Not Available Not Available ergocalcife rol (vitamin D2) 1,250 mcg (50,000 unit) capsule 03/30 completed Not Available Not Available Not Available azelastine 137 mcg (0.1 %) nasal spray 03/30 completed Not Available Not Available Not Available methylpredn isolone 4 mg tablets in a dose pack 03/30 completed Not Available Not Available Not Available fluticasone propionate 50 mcg/actuati on nasal spray,suspe nsion [place] 1 spray twice a day by intranasa l route. 03/30 completed Not Available Not Available Not Available Celexa 40 mg tablet Take 1 tablet every day by oral route as directed. active Not Available Not Available No t Available atenolol 50 mg tablet 03/30 completed Not Available Not Available Not Available Xanax 1 mg tablet Take 1 tablet 3 times a day by oral route. 03/30 completed Not Available Not Available Not Available amoxicillin 875 mg-potassiu m clavulanate 125 mg tablet 02/08 completed Not Available Not Available Not Available Flexeril 10 mg tablet Take 1 tablet 3 times a day by oral route. 03/30 completed Not Available Not Available Not Available neomycin-po lymyxin-hyd rocort 3.5 mg-10,000 unit/mL-1 % ear drops,susp 03/30 completed Not Available Not Available Not Available Mucinex 600 mg tablet, extended release 03/30 completed Not Available Not Available Not Available escitalopra m 20 mg tablet 03/30 completed Not Available Not Available Not Available Ciprodex 0.3 %-0.1 % ear drops,suspe nsion 03/30 completed Not Available Not Available Not Available Allergy Relief (diphenhydr amine) 25 mg capsule active Not Available Not Available N ot Available albuterol sulfate active Not Available Not Available Not Available ibuprofen active Not Available Not Betty ilable Not Available ProAir HFA 90 mcg/actuati on aerosol inhaler Inhale 2 puffs every 6 hours by inhalatio n route. active Not Available Not Available No t Available Rulox 200 mg-200 mg-20 mg/5 mL oral suspension 03/30 completed Not Available Not Available Not Available Vitals Date Recorded Body weight Body mass index (BMI) Body height Heart rate Oxygen saturation Systolic And Diastolic Provider Name and Address Organization Details Last Updated DateTime 9 615311. 93 g 39.2 kg/m2 185.42 cm 75 /min 97 % 148/100 mm[Hg] Dennise Byrdehr [facility] 9 12:40:24 Date Recorded Body height Body mass index (BMI) Body weight Oxygen saturation Heart rate Systolic And Diastolic Provider Name and Address Organization Details Last Updated DateTime 9 185.42 cm 39.4 kg/m2 564025. 12 g 97 % 92 /min 160/100 mm[Hg] Timmy Dumont i, MD [address] [place], [address], [facility] 9 12:39:22 Social History Question Answer Notes LastModified by Organizat ion Details LastModified Time Tobacco Smoking Status Former Smoker [facility]uit 1995 Not Available [facility] 07/16/2020 03:30:42 What Is Your Level Of Caffeine Consumption? None [id number] Information not available 07/16/2020 How Much Tobacco Do You Chew? None [id number] Information not available 07/16/2020 What Type Of Diet Are You Following? REGULAR [id number] Information not available 07/16/2020 Which Illicit Or Recreational Drugs Have You Used? No [id number] Information not available 07/16/2020 Live Alone Or With Others? With Others Information not available 03/30/2019 Marital Status Informatio n not available 03/30/2019 What Was The Date Of Your Most Recent Tobacco Screening? 03/30/2019 [id number] Information not available 07/16/2020 How Many Children Do You Have? 2 [id number] Information not available 07/16/2020 How Much Tobacco Do You Smoke? No [id number] Information not available 07/16/2020 How Many Years Have You Smoked Tobacco? 1 [id number] Information not available 07/16/2020 Sex: Unknown Functional Status Question Answer Note LastModified by Organizat ion Details LastModified Time What is your level of alcohol consumption? 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 None [id number] Information not available 07/16/2020 Mental Status None recorded. Family History Nothing Reported. Medical History Condition Response Coronary Artery Disease Y Hyperlipidemia Y Asthma Y Anemia Y GERD/Reflux Y Past Encounters Encounter ID Performer Location Encounter Start Date Encounter Closed Date Diagnosis/Indication Diagnosis SNOMED-CT Code Diagnosis ICD10 Code Diagnosis IMO Codes Diagnosis Note [id number] Lg Newell MD [facility] [address] [place] [address] 03/30/2019 12:05:11 03/31/2019 08:59:29 Hyperlipidemia 45083850 E78.5 Needs to keep LDL less than 70, and HDL more than 40 LDL 79 has hx of HLD but is not on statin Panic attack 486711142 F 41.0 Anxiety 79925421 F41.9 Post-traum atic stress disorder 73981795 F43.10 pt is awaiting psychiatry consult at [facility] Hypertensive disorder 38 470836 I10 Plan of medication s adjustment was d/w pt. Since no plans to refill Xanax were made pt stated:IF YOU DO NOT COOPERATE WITH ME I WILL NOT COOPERATE WITH YOU [id number] Timmy Albrecht MD [facility] [address] [place], [place] [id number] 04/07/2019 12:34:26 04/07/2019 12:59:57 Hyperlipidemia 25904414 E78.5 Needs to keep LDL less than 70, and HDL more than 40 LDL 79 has hx of HLD but is not on statin Panic attack 986595123 F 41.0 Anxiety 49561614 F41.9 Post-traum atic stress disorder 84047166 F43.10 pt is awaiting psychiatry consult at [facility] Hypertensive disorder 38 646919 I10 Plan of medication s adjustment was d/w pt. Since no plans to refill Xanax were made pt stated:IF YOU DO NOT COOPERATE WITH ME I WILL NOT COOPERATE WITH YOU Health Concerns Section Related Observation LastModified by Organization Detai ls LastModified Time None Recorded Concern Status LastModified by Organization Details LastModified Time None Recorded Advance Directives Directive None Recorded Payers Insurance Date Sequence Insurance Name Policy Number Policy Lovelace Covered Member ID Lovelace Member ID Guarantor Name 04/11/2019 1 [facility] - DOS PRIOR TO 2021 (MEDICAID REPLACEMENT - HMO) Carlos Mcgee [id number] Carlos Mcgee Notes Date Note Type Note Provider Name and Address Organization Details Recorded Time 03/30/2019 text/html 03/30/19 CC : Shortness of breath, headaches 49 year-old WM with a PMH of mild CAD, hypertension, hyperlipidemia, diabetes mellitus, ARA, obesity, anxiety, PTSD, panic attacks presents today for cardiac consultation with a chief complaint of HTN. pt states that he recently visited ER of [facility] in [place] and his BP was elevated (202/110) he spent few hours there and later was dc. prescription for 20 tbl of Atenolol 100 was given then recently he presented to [facility] ER where he spent few hours and then was dc with BP 165/83 according to pt.Referral was made at that time from ER physician to see Dr. Albrecht in our office for elevated BP.. States that used to have PC but has No PC anymore.States that used to see Dr. Casillas from [facility] before but did like him since he was told that everything was normal and he wants second opinion. pt extensively discussed his anxiety and panic attacks that he has. He used to see psychiatrist who dc him from clinic according to pt. He was not able to refill celeste Xanax in every pharmacy which was a problem according to pt. Claims that is going to have next psychiatrist appointment at [facility] in mid April. PT REQUESTED PRESCRIPTION OF XANAX 2MG BID DURING HIS VISIT. MULTIPLE TIMES. He was advised that we do not treat these type of problems since this is cardiology office.He asked if we could give him at least one month supply of Xanax. 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 colonoscopy was done and is benign DM is supposed to seee [facility]. States that his HTN was recently dgn.Norvasc did not work Atenolol worked initially and then not. BP checked at [facility] was 135/80 while he was on Atenolol no refill on any meds and sometimes BP runs 199/104 Had hypokalemia and during recent ER visit it was 3.7 Dr. Casillas did ECHO which was fine, cath was fine (about 08/30 at [facility]), Holter fine too according to pt.. At the end of visit pt stated that IF YOU DO NOT COOPERATE WITH ME I WILL NOT COOPERATE WITH YOU - which was after again it was explained to him that this is not place to refill his Xanax. He presents today for cardiac consult for HTN his blood pressures run high when he checks them at pharmacies 180-190's/90-100's and headaches. Takes his BP medicine as orders.Reports 40 lbs weight gain in last year. BP 148/100 HR 75. reports frequent stress and anxiety. Reports he was recently diagnosed with diabetes but is looking for a new PCP. Patient presented to [facility] ED on 01/18/19 with complaints of worsening SOB as well as some left-sided chest tightness. He was recently seen at [facility] for similar symptoms and had negative cardiac work-up. He reports that he pain was reproducible with deep inspiration and when pressing on his chest wall. He reports that he has underlying anxiety and has severe seasonal allergies. Troponin I negative. EKG with no acute abnormalities. Chest x-ray was negative. Was advised to take Tylenol of ibuprofen PRN for pain. No further chest pain. No shortness of breath at rest.NO dyspnea on exertion. No orthopnea. No PND's. No dizziness. No palpitation. No syncope or near syncope. No leg swelling. No nausea and vomiting. No major bleeding events. No side effects from medications. Reports ARA but does NOT have CPAP. Had ECHO done in 06/19/18 showed EF 55-60% . Had CATH by Dr. Stewart on 06/24/18 revealed Non obstructive coronary artery disease. LVEDP is 16 mmHg. Results from this visit, or from the past:CBC 01/18/2019 WBC 6.2 RBC 6.25 HGC 14.8 HCT 46.8 PLT 199CMP 01/18/2019 NA 143 K 3.3 CH 104 CO2 28 GL 94 BUN 7 CR 0.9 AST 40 ALT 54 ALK PH 76 BNP 33LIPID 01/18/2019 TR 219 CH 147 HDL 24 LDL 79 EKG (03/29/19): NSR, NSST changesEKG 01/18/2019 Normal sinus rhythm. Normal ECG. When compared with ECG of 18 JAN 2019 no significant change was found Echo 06/19/2018 E/E prime ratio is 8-15 which is in the indeterminate zone. The LVEF is normal. EF=55-60% CT abd 11/11/2018 Unchanged circumferential wall thickening of the distal descending colon, and more pronounced masslike circumferential wall thickening of the proximal to mid segments of the sigmoid colon. This is superimposed on a background of colonic diverticulosis, and there is unchanged tethered appearance of the urinary bladder dome to the sigmoid colon. A neoplastic process is unlikely given the stability of this process since 2016. This is likely sequela of a previous inflammatory or infectious process, including diverticulitis. No acute finding is noted at this level. Particularly, there is no evidence of acute diverticulitis at this time. Nonobstructing stones in both kidneys, measuring up to 4 mm. No hydronephrosis. No stones in the ureters or urinary bladder. Mild hepatosplenomegaly. This is similar to previous studies, and remains nonspecific. Other incidental findings as above CANDICE Chávez - [facility] 03/30/2019 19:06:29 04/07/2019 text/html CC : Shortness of breath, headaches 49 year-old WM with a PMH of mild CAD, hypertension, hyperlipidemia, diabetes mellitus, ARA, obesity, anxiety, PTSD, panic attacks presents today for cardiac consultation with a chief complaint of HTN. pt states that he recently visited ER of [facility] in [place] and his BP was elevated (202/110) he spent few hours there and later was dc. prescription for 20 tbl of Atenolol 100 was given then recently he presented to [facility] ER where he spent few hours and then was dc with BP 165/83 according to pt.Referral was made at that time from ER physician to see Dr. Albrecht in our office for elevated BP.. States that used to have PC but has No PC anymore.States that used to see Dr. Casillas from [facility] before but did like him since he was told that everything was normal and he wants second opinion. pt extensively discussed his anxiety and panic attacks that he has. He used to see psychiatrist who dc him from clinic according to pt. He was not able to refill celeste Xanax in every pharmacy which was a problem according to pt. Claims that is going to have next psychiatrist appointment at [facility] in mid April. PT REQUESTED PRESCRIPTION OF XANAX 2MG BID DURING HIS VISIT. MULTIPLE TIMES. He was advised that we do not treat these type of problems since this is cardiology office.He asked if we could give him at least one month supply of Xanax. 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 colonoscopy was done and is benign DM is supposed to seee [facility]. States that his HTN was recently dgn.Norvas did not work Atenolol worked initially and then not. BP checked at [facility] was 135/80 while he was on Atenolol no refill on any meds and sometimes BP runs 199/104 Had hypokalemia and during recent ER visit it was 3.7 Dr. Casillas did ECHO which was fine, cath was fine (about 08/30 at [facility]), Holter fine too according to pt.. At the end of visit pt stated that IF YOU DO NOT COOPERATE WITH ME I WILL NOT COOPERATE WITH YOU - which was after again it was explained to him that this is not place to refill his Xanax. He presents today for cardiac consult for HTN his blood pressures run high when he checks them at pharmacies 180-190's/90-100's and headaches. Takes his BP medicine as orders.Reports 40 lbs weight gain in last year. BP 148/100 HR 75. reports frequent stress and anxiety. Reports he was recently diagnosed with diabetes but is looking for a new PCP. Patient presented to [facility] ED on 01/18/19 with complaints of worsening SOB as well as some left-sided chest tightness. He was recently seen at [facility] for similar symptoms and had negative cardiac work-up. He reports that he pain was reproducible with deep inspiration and when pressing on his chest wall. He reports that he has underlying anxiety and has severe seasonal allergies. Troponin I negative. EKG with no acute abnormalities. Chest x-ray was negative. Was advised to take Tylenol of ibuprofen PRN for pain. No further chest pain. No shortness of breath at rest.NO dyspnea on exertion. No orthopnea. No PND's. No dizziness. No palpitation. No syncope or near syncope. No leg swelling. No nausea and vomiting. No major bleeding events. No side effects from medications. Reports ARA but does NOT have CPAP. Had ECHO done in 06/19/18 showed EF 55-60% . Had CATH by Dr. Stewart on 06/24/18 revealed Non obstructive coronary artery disease. LVEDP is 16 mmHg. Results from this visit, or from the past:CBC 01/18/2019 WBC 6.2 RBC 6.25 HGC 14.8 HCT 46.8 PLT 199CMP 01/18/2019 NA 143 K 3.3 CH 104 CO2 28 GL 94 BUN 7 CR 0.9 AST 40 ALT 54 ALK PH 76 BNP 33LIPID 01/18/2019 TR 219 CH 147 HDL 24 LDL 79 EKG (03/29/19): NSR, NSST changesEKG 01/18/2019 Normal sinus rhythm. Normal ECG. When compared with ECG of 18 JAN 2019 no significant change was found Echo 06/19/2018 E/E prime ratio is 8-15 which is in the indeterminate zone. The LVEF is normal. EF=55-60% CT abd 11/11/2018 Unchanged circumferential wall thickening of the distal descending colon, and more pronounced masslike circumferential wall thickening of the proximal to mid segments of the sigmoid colon. This is superimposed on a background of colonic diverticulosis, and there is unchanged tethered appearance of the urinary bladder dome to the sigmoid colon. A neoplastic process is unlikely given the stability of this process since 2017. This is likely sequela of a previous inflammatory or infectious process, including diverticulitis. No acute finding is noted at this level. Particularly, there is no evidence of acute diverticulitis at this time. Nonobstructing stones in both kidneys, measuring up to 4 mm. No hydronephrosis. No stones in the ureters or urinary bladder. Mild hepatosplenomegaly. This is similar to previous studies, and remains nonspecific. Other incidental findings as above Timmy Albrecht MD [address] [place], [address], [place] [facility] - [facility] 04/07/2019 12:59:55
--- OUTSIDE RECORDS SUMMARY | 2025-08-30 11:36 | XMS_ITS | Encounter Summary ---
Author Organization [facility] Address 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
--- OUTSIDE RECORDS SUMMARY | 2025-08-30 11:36 | XMS_ITS | Encounter Summary ---
Author Organization [facility] Address [address] [place] [address] Care Team Providers Care Business Functional Analyst Name Role Phone Howard Trinidad MD Primary Care Provider Un available Encounter Details Date Type Department Care Team (Late st Contact Info) Description 03/02/2004 Emergency [facility] Lobobrayanevens Ian, DO [address] [facility] [address] [place] [phone] Er, Authorized P NO ADDRESS ON FILE ANXIETY STATE NOS (Primary Dx) Social History Tobacco Use Types Packs/Day Years Used Date Smoking Tobacco: Never Assessed Sex and Gender Information Value Date Recorded Sex Assigned at Not on file 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
--- OUTSIDE RECORDS SUMMARY | 2025-08-30 11:36 | XMS_ITS | Encounter Summary ---
Author Organization [facility] Address [address] [facility] [place] [address] Care Team Providers Care Battery Inspector Name Role Phone Unavailable Primary Care Provider Unavailabl e Reason for Visit * Reason Onset Date Comments Medication Issue 10/24/2019 Encounter Details Date Type Department Care Team (Late st Contact Info) Description 10/24/2019 Telephone [facility] [address] [facility] [address] [place] [address] Radha Palafox APRN-CNP [address] OF [facility] [place] [phone] Medication Issue Social History Tobacco Use Types Packs/Day Years Used Date Smoking Tobacco: Former Smokeless Tobacco: Never Alcohol Use Standard Drinks/Week Comments No 0 (1 standard drink = 0.6 oz pur e alcohol) Sex and Gender Information Value Date Recorded Sex Assigned at Not on file Legal Sex Male 6:27 AM SHEETROCK 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 Again talking about his urinary [...] happy with anyone he gets. MELISA Diaz TROCK APPLICATOR * Telephone Encounter - Mallory Flores RN - 10/24/2019 2:47 PM CST Patient calling again today He is complaining of being lightheaded. Please see below message TROCK APPLICATOR * Telephone Encounter - Mallory Flores RN - 10/24/2019 2:27 PM CST Patient calling and he is out xanax and psychiatrist will not refill He wants to speak with you about this [phone] TROCK APPLICATOR documented in this encounter Plan of Treatment Not on file documented as of this encounter Visit Diagnoses Not on filedocumented in this encounter
--- OUTSIDE RECORDS SUMMARY | 2025-08-30 11:36 | XMS_ITS | Encounter Summary ---
Author Organization [facility] Address [address] [place] [address] Care Team Providers Care Property Insurance Inspector Name Role Phone Jagdeep Sanford DO Primary Care Provider [phone] Miscellaneous, Not In File Unavailable Unava Charanjit Wilburn MD Primary Care Provider [phone] Carlos Gamboa MD Primary Care Provid er Unknown, Notinfile Primary Care Provider Unavail able No, Physician Primary Care Provider [phone] Unknown, Notinfile Primary Care Provider Unavail able No, Physician Primary Care Provider [phone] Unknown, Notinfile Primary Care Provider Unavail able Adin Lino MD Primary Care Provider + Unknown, Notinfile Primary Care Provider Unavail able Encounter Details Date Type Department Care Team (Late st Contact Info) Description 11/29/2019 Documentation [facility] Respiratory [address] [place] [address] Hebrie Ramsey RRT Social History Tobacco Use Types [...] file Legal Sex Male 1:40 AM WEB SITE PROJECT MANAGER Gender Identity Not on file Sexual [...] Suspected 10/11/2023 10/11/2023 10/11/2023 5:30 PM WEB SITE PROJECT MANAGER COVID: Suspected 10/22/2024 10/22/2024 10/22/2024 5:53 PM WEB SITE PROJECT MANAGER Influenza, adult 10/22/2024 10/22/2024 10/29/2024 3:05 AM WEB SITE PROJECT MANAGER documented as of this encounter Care Teams Property Insurance Inspector Relationship Specialty Start Date End Date Jagdeep Sanford DO [address] [place] [address] PCP - General Family Medicine 11/16/19 01/20/20 Charanjit Sheffield MD PCP - General 01/21/20 09/29/20 Carlos Gamboa MD PCP - General Family Medicine 09/30/20 05/07/21 Unknown, Notinfile PCP - General 05/08/21 11/26/21 No, Physician PCP - General 11/27/21 01/13/23 Unknown, Notinfile PCP - General 01/14/23 01/17/24 No, Physician PCP - General 01/18/24 04/21/24 Unknown, Notinfile PCP - General 04/22/24 07/30/24 Adin Lino MD [address] [place] [address] PCP - General Internal Medicine 07/31/24 07/31/24 Unknown, Notinfile PCP - General 08/01/24 Miscellaneous, Not In File 11/16/19 documented as of this encounter
--- OUTSIDE RECORDS SUMMARY | 2025-08-30 11:36 | XMS_ITS | Encounter Summary ---
Author Organization [facility] Address [address] [place] [address] Care Team Providers Care Dye Lab Technician Name Role Phone Howard Trinidad MD Primary Care Provider Un available Encounter Details Date Type Department Care Team (Late st Contact Info) Description 07/01/2006 Outpatient Historical [facility] ([facility]) [address] 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
--- OUTSIDE RECORDS SUMMARY | 2025-08-30 11:36 | XMS_ITS | Encounter Summary ---
Author Organization [facility] Address 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
--- OUTSIDE RECORDS SUMMARY | 2025-08-30 11:36 | XMS_ITS | Encounter Summary ---
Author Organization [facility] Address 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
--- OUTSIDE RECORDS SUMMARY | 2025-08-30 11:36 | XMS_ITS | Encounter Summary ---
Author Organization [facility] Address 

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
--- OUTSIDE RECORDS SUMMARY | 2025-08-30 11:36 | XMS_ITS | Patient Health Record ---
Author Organization [facility] Address [address] [address] Care Team Providers Care Corporate Recruiter Name Role Phone Charanjit Sheffield Primary Care [...] Once a day; Duration: 30 days Active Vkldtdlq-Kmutzjxau-Fmcsapyq 0.1 % 1 application into the lower [...] complication (E11.69) Active confirmed Problem Mixed hyperlipidemia (094281514) Mixed hyperlipidemia (E78.2) Active confirmed Problem Nausea (950903191) Nausea (R11.0) Active confir med Problem Anxiety (42957936) Anxiety (F41.9) Active confi rmed Problem Gastroesophageal reflux disease without esophagitis (372561665) Gastroesophageal reflux disease without esophagitis (K21.9) Active confirmed Problem Mild intermittent asthma (649332831) Mild intermittent asthma without complication (J45.20) Active confirmed Problem Essential hypertension (11999599) Essential hypertension (I10) Active confirmed Problem Vertigo (045415551) Vertigo (R42) Active confir med Problem Neck pain (20526302) Neck pain (M54.2) Active confirmed Problem Abdominal pain (57302357) Abdominal pain (R10.9) Active confirmed Problem Depression (217570207) Depression (F32.9) Active confirmed Problem Cervical spondylosis (413468169) Cervical spondylosis (M47.812) Active confirmed Problem Pain in right arm (730568305) Right arm pain (M79.601) Active confirmed Problem Type II diabetes mellitus without complication (311461458) Type 2 diabetes mellitus without complication, without long-term current use of insulin (E11.9) Active confirmed Problem History of gastrointestinal disease (423392682) History of diverticulosis (Z87.19) Active confirmed Problem Allergic rhinitis (35220360) Allergic rhinitis due to other allergic trigger, unspecified seasonality (J30.89) Active confirmed Problem History of excision of intestinal structure (476300201) S/P cholecystectomy (Z90.49) Active confirmed Problem Recurrent major depression in remission (24838072) Recurrent major depressive disorder, in partial remission (F33.41) Active confirmed Problem Allergic rhinitis (66269514) Non-seasonal allergic rhinitis, unspecified trigger (J30.89) Active confirmed Problem Elevated liver enzymes level (610501752) Elevated LFTs (R79.89) Active confirmed Problem Pain in eye (74379924) Discomfort of left eye (H57.12) Active confirmed Plan Of Treatment No Information Insurance Providers Payer Name Payer Address Payer Phone Subscriber Number Group Number Insured Name Patient Relationship to Insured Coverage Start Date Coverage End Date [facility] [address] [id number] [phone] [id number] WADE KELLY Self - patient is the insured 9 Medical (General) History Medical History History ICD Code sinusitis Vertigo Asthma Sleep Apnea diverticulitis fatty liver 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
--- OUTSIDE RECORDS SUMMARY | 2025-08-30 11:36 | XMS_ITS | Clinical Summary ---
Author Organization [facility] Address [address] [place] [address] Care Team Providers Care Wheel Tuner Name Role Phone Unavailable Primary Care Provider [...] None 6 Active fluticasone (FLONASE) 50 mcg/spray [place], Suspension Administer 2 Sprays in each nostril [...] on file Legal Sex Male 4:57 AM LOGISTICS ACCOUNT MANAGER Gender Identity Not on file Sexual Orientation Not on file Occupation Industry Job Start Date Job End Date Not on file Not on file Not on file Not on file Not on file Not on file Not on file Not on file Last Filed Vital Signs Vital Sign Reading Time Taken Comments Blood Pressure 152/94 11/18/2019 7:07 AM LOGISTICS ACCOUNT MANAGER Pulse 66 11/18/2019 7:07 AM LOGISTICS ACCOUNT MANAGER Temperature 36.7 C (98.1 F) 11/18/2019 5:34 AM LOGISTICS ACCOUNT MANAGER Respiratory Rate 18 11/18/2019 7:07 AM LOGISTICS ACCOUNT MANAGER Oxygen Saturation 98% 11/18/2019 7:07 AM LOGISTICS ACCOUNT MANAGER Inhaled Oxygen Concentration - - Weight 120.2 kg (265 lb) 11/18/2019 5:34 AM LOGISTICS ACCOUNT MANAGER Height 188 cm (6' 2) 11/18/2019 5:34 AM LOGISTICS ACCOUNT MANAGER Body Mass Index 34.02 11/18/2019 5:34 AM LOGISTICS ACCOUNT MANAGER Plan of Treatment Health Maintenance Due Date [...] - 6.1 % 07/02/2015 5:25 PM CDT [facility] EST. AVG GLUCOSE, A1C 140 mg/dL 07/02/2015 5:25 PM CDT [facility] Blood Venipuncture - Floor Collect / Unknown 07/02/2015 2:10 AM CDT 07/02/2015 2:11 AM CDT Narrative [facility] - 07/02/2015 5:25 PM CDT Based on the ADAG study equation. us Iwona Arteaga APN CHEMISTRY ORDERABLES Final R esult [facility] CLIA# [id number] [address] [place] [address] from Last 3 Months or Most Recently Relevant to Health Maintenance Insurance MEDICAID Advance Directives For more information, please contact: [phone] * Full Code (Latest Code Status on File) Date Activated Date Inactivated Comments 07/02/2015 8:36 AM 07/02/2015 8:02 PM * Full Code Date Activated Date Inactivated Comments 08/28/2014 2:37 PM 08/28/2014 5:13 PM
--- OUTSIDE RECORDS SUMMARY | 2025-08-30 11:36 | XMS_ITS | Encounter Summary ---
Author Organization [facility] Health Address [address] [place] [address] Care Team Providers Care Moss Bleacher Name Role Phone Unavailable Primary Care Provider Unavailabl e Encounter Details Date Type Department Care Team (Late st Contact Info) Description 09/08/2019 Telephone [facility] [address] [facility] [address] [place] [address] Radha Palafox APRN-CNP [address] OF [facility] [place] [phone] Social History Tobacco Use Types Packs/Day Years Used Date Smoking Tobacco: Former Smokeless Tobacco: Never Alcohol Use Standard Drinks/Week Comments No 0 (1 standard drink = 0.6 oz pur e alcohol) Sex and Gender Information Value Date Recorded Sex Assigned at Not on file Legal Sex Male 6:27 AM CARBON CAPTURE POWER PLANT ENGINEER Gender Identity Not on file Sexual [...] reluctantly let me connect him to scheduling ON CAPTURE POWER PLANT ENGINEER * Telephone Encounter - Radha Palafox APRN-CNP - 09/08/2019 1:59 PM CARBON CAPTURE POWER PLANT ENGINEER Please tell him that he needs to elevate his legs. I can not do anything for him over the phone. MELISA Diaz ON CAPTURE POWER PLANT ENGINEER * Telephone Encounter - Mallory Flores RN [...] He would like you to call him [phone] ON CAPTURE POWER PLANT ENGINEER documented in this encounter Plan of Treatment Not on file documented as of this encounter Visit Diagnoses Not on filedocumented in this encounter
--- OUTSIDE RECORDS SUMMARY | 2025-08-30 11:37 | XMS_ITS | Clinical Summary ---
Author Organization [facility] Address [address] [place] [address] Phone Care Team Providers Care Clergy Member Name Role Phone Unavailable Primary Care Provider [...]
[2025-08-30 11:52] LABS: Anion Gap 6 mmol/L (4-12); Blood Urea Nitrogen 10 mg/dL (9-20); Calcium 9.1 mg/dL (8.4-10.2); Carbon Dioxide 30 mmol/L (22-30); Chloride 104 mmol/L (98-107); Estimated CRCL calculation 105 ml/min; Estimated Glomerular Filt Rate > 60; Glucose 94 mg/dL (65-110); Potassium 3.7 mmol/L (3.4-5.0); Sodium 140 mmol/L (137-145)
[2025-08-30 11:56] LABS: Anisocytosis 1+; Hypochromasia Occasional; Microcytosis 2+ (NORMAL); Ovalocytes Occasional; Schistocytes None Seen
[2025-08-30 12:21] LABS: Syphilis IgG/IgM Antibody Non-Reactive (Nonreactive)
--- NOTE | 2025-08-30 12:21 | ED.GENADULT ---
HPI - General Adult General Chief complaint: Unspecified Stated complaint: tongue abrasions Time Seen by Provider: 08/30/25 10:40 History of Present Illness HPI narrative: Patient presents with multiple complaints, he has been noticing dry skin around his nails and hands, and dry skin around his lips, he is concerned because he recently had shared a water bottle with a friend who is batista, he did also perform oral sex on a woman and he is concerned for possible STDs. He is concerned for syphilis. Related Data Home Medications ?Medication ?Instructions ?Recorded ?Confirmed ?Last Taken ?Type potassium chloride 10 mEq 10 meq PO DAILY 06/09/23 07/26/24 08/18/24 History tablet,extended release alprazolam 2 mg tablet mg 04/17/25 Unknown History Allergies Allergy/AdvReac Type Severity Reaction Status Date / Time Iodinated Contrast Media Allergy Severe Anaphylaxis Verified 08/30/25 12:01 metformin Allergy Severe Stopped Verified 08/30/25 12:01 Breathing Sulfa (Sulfonamide Allergy Severe Anaphylaxis Verified 08/30/25 12:01 Antibiotics) sulfamethoxazole Allergy Severe Anaphylaxis Verified 08/30/25 12:01 famotidine Allergy Intermediate Hives Verified 08/30/25 12:01 losartan Allergy Intermediate SWLLEING Verified 08/30/25 12:01 LIP AND HIVES nebivolol Allergy Intermediate LIP Verified 08/30/25 12:01 SWELLING tramadol Allergy Intermediate Hives Verified 08/30/25 12:01 valsartan Allergy Intermediate HIVES/SOB Verified 08/30/25 12:01 amlodipine Allergy Mild HIVES Verified 08/30/25 12:01 azithromycin Allergy Mild Nervousness Verified 08/30/25 12:01 pantoprazole Allergy Mild Hives Verified 08/30/25 12:01 spironolactone Allergy Mild RASH AND Verified 08/30/25 12:01 ITCHING trimethoprim Allergy Mild RASH Verified 08/30/25 12:01 morphine Allergy Unknown Verified 08/30/25 12:01 cephalexin AdvReac Mild Nervousness Verified 08/30/25 12:01 flavoxate AdvReac Mild Nervousness Verified 08/30/25 12:01 lidocaine AdvReac Mild Nervousness Verified 08/30/25 12:01 lisinopril AdvReac Mild Nervousness Verified 08/30/25 12:01 nitrofurantoin AdvReac Mild Nervousness Verified 08/30/25 12:01 oxycodone AdvReac Mild Nervousness Verified 08/30/25 12:01 paroxetine AdvReac Mild Nervousness Verified 08/30/25 12:01 [facility] Past Medical History Medical History Prediabetes Allergic rhinitis Chronic sinusitis Chronic post-traumatic stress disorder (PTSD) Anxiety Depression GERD (gastroesophageal reflux disease) Sleep apnea Asthma HTN (hypertension) CAD (coronary artery disease) history CT Concussion Surgical History Surgical History H/O gastric bypass Hx of cholecystectomy History of cardiac cath History of colonoscopy Family History Family History Grandparent Family history of obesity Hypertension Diabetes mellitus Mother Depression Patient's mother is in good health Family history of mental disorder Father Hypertension Patient's father is in good health Family history of alcoholism Cerebrovascular accident Sibling Patient's sister is in good health Patient's brother is in good health Father Cerebrovascular accident Alcoholism Hypertension Heart disease Mother Family history of malignant neoplasm Depression Hypertension Other Family history of cardiovascular disease Social History Social History Smoking status: Former smoker Smoking end date: 09/13/95 Alcohol intake: former Substance use: never Substance use type: opiates Lack of Transportation: No Lack of Food: Never True Current Housing: I Have Housing Concerned About Future Housing: No Difficulty Paying Gas/Electric Bills: No Difficulty Paying for Meds: No Currently Unemployed: No Education: Master's Degree or Higher Difficulty w/ Childcare or Family Care: No Living arrangements: alone Occupation/Education: occupation Gender identity (if verbalized by the patient): Male Sexual Orientation (if Verbalized by the Patient): Straight or Heterosexual Spiritual care concerns: No Course Vital Signs Vital signs: Vital Signs Temperature 97.9 F 08/30/25 10:37 Pulse Rate 60 08/30/25 10:37 Respiratory Rate 16 08/30/25 10:37 Blood Pressure 170/82 H 08/30/25 10:37 Pulse Oximetry 100 08/30/25 10:37 Oxygen Delivery Room Air 08/30/25 10:37 Temperature 97.9 F 08/30/25 10:37 Pulse Rate 60 08/30/25 10:37 Respiratory Rate 16 08/30/25 10:37 Blood Pressure 170/82 H 08/30/25 10:37 Pulse Oximetry 100 08/30/25 10:37 Oxygen Delivery Room Air 08/30/25 10:37 MDM MDM Narrative Medical decision making narrative: Patient presents with multiple complaints, he has been noticing dry skin around his nails and hands, and dry skin around his lips, he is concerned because he recently had shared a water bottle with a friend who is batista, he did also perform oral sex on a woman for the first (and last) time and he is concerned for possible STDs. He is concerned for syphilis. He is well-appearing here, does have some dry skin on his hands, I do not see any obvious oral lesions or ulcers, patient does appear extremely anxious. I did reassure him that it was very low chance for transmission of syphilis or HIV through the methods he described, he would like to have all STD tests performed so I have ordered this. I did let him know that many of them will take several days to come back and provided information for follow-up to get the results. He called me back into the room 4-5 times to continue asking me about his dry hands, even while multiple ambulances and emergencies were happening around him and was quite upset when I got called out of the room, even though I did spend a good 15 minutes total discussing his symptoms with him. At time of discharge he refused to leave, stating that he wanted to get his results back. I did again reiterate that many of them will not be back for days. He is now refusing to leave unless he gets Zofran even though he is not nauseous currently. I have sent the prescription to the pharmacy. He called me back to the room again to tell me that he wanted a different pharmacy even though this is the 1 that he had provided earlier today. I re-sent the prescription. Differential Diagnosis Differential Diagnosis: possible STD exposure, dry skin, vitamin deficiency, health anxiety Lab Data 08/30/25 11:24 08/30/25 11:24 Labs: Lab Results 08/30/25 Range/Units 11:24 WBC 4.8 (4.5-10.0) K/mm3 RBC 5.54 (4.6-6.20) M/mm3 Hgb 11.6 L (14.0-18.0) g/dL Hct 38.8 L (42.0-52.0) % MCV 70.0 L (80-100) fl MCH 20.9 L (26-34) pg MCHC 29.9 L (32-36) g/dl RDW 17.5 H (11.5-14.5) % Plt Count 170 (150-375) k/mm3 MPV 9.3 (7.4-10.4) fl Immature Gran % (Auto) 0.4 (0-0.5) % Neut % (Auto) 58.6 (45.5-73.1) % Lymph % (Auto) 30.1 (18.3-44.2) % [place] % (Auto) 6.6 (2.6-8.5) % Eos % (Auto) 3.7 (0-4.4) % Baso % (Auto) 0.6 (0.2-1.2) % Lymph # (Auto) 1.45 (0.9-3.2) K/mm3 [place] # (Auto) 0.3 (0.1-0.6) K/mm3 Eos # (Auto) 0.2 (0-0.3) K/mm3 Baso # (Auto) 0.0 (0.0-0.1) K/mm3 Abs Immat Gran (auto) 0.02 (0.00-0.031) K/mm3 Absolute Neuts (auto) 2.8 (1.3-6.7) K/mm3 Absolute Nucleated RBC 0.000 (0.0-0.012) K/mm3 Band Neutrophils % Not Reportable Nucleated RBC % 0.0 (0.0-0.2) % Platelet Estimate Adequate (Adequate) Hypochromasia Occasional Anisocytosis 1+ Microcytosis 2+ (NORMAL) Ovalocytes Occasional Schistocytes None seen Sodium 140 (137-145) mmol/L Potassium 3.7 (3.4-5.0) mmol/L Chloride 104 (98-107) mmol/L Carbon Dioxide 30 (22-30) mmol/L Anion Gap 6 (4-12) mmol/L BUN 10 (9-20) mg/dL Creatinine 0.97 (0.7-1.3) mg/dL Estim Creat Clear Calc 105 ml/min Estimated GFR > 60 (59 - ) Glucose 94 (65-110) mg/dL Calcium 9.1 (8.4-10.2) mg/dL Syphilis IgG/IgM Ab Non-reactive (Nonreactive) C. trachomatis (PCR) Pending HSV I DNA PCR Pending HSV II DNA PCR Pending HIV 1&2 Ab/P24 Ag 4thGn Pending N. gonorrhoeae (PCR) Pending T. vaginalis (PCR) Pending Discharge Plan Discharge Clinical Impression: Concern about STD in male without diagnosis Patient Disposition: Home Condition: Stable Instructions: Safe Sex Practices (ED) Additional Instructions: Please follow up with your doctor; you can follow-up with your test results in the next 3-4 days. You can always return for any further issues. Make sure to keep moisturized and hydrated. Patient Language: Bhut[place] Prescriptions: New ondansetron 4 mg tablet,disintegrating 4 mg PO Q8H PRN (Reason: nausea and vomiting) Qty: 10 0RF ondansetron 4 mg tablet,disintegrating 4 mg PO Q8H PRN (Reason: nausea and vomiting) Qty: 10 0RF No Action potassium chloride 10 mEq tablet extended release 10 meq PO DAILY alprazolam 2 mg tablet albuterol sulfate 90 mcg/actuation HFA aerosol inhaler 2 puff inhalation Q4-6H PRN (Reason: shortness of breath or wheezing) 30 Days Qty: 8.5 0RF fluticasone propionate [Flonase Allergy Relief] 50 mcg/actuation spray,suspension 1 spray intranasal BID Qty: 16 0RF Rx Instructions: administer into each nostril (DME) Aerochamber Plus Z Stat Spacer See Rx Instructions .Route Qty: 1 0RF Rx Instructions: As directed atenolol 100 mg tablet 100 mg PO DAILY Qty: 30 0RF omeprazole 40 mg capsule,delayed release(DR/EC) 40 mg PO DAILY Qty: 30 0RF atenolol 100 mg tablet 100 mg PO DAILY Qty: 30 0RF hyoscyamine sulfate [Levsin/SL] 0.125 mg tablet, sublingual 0.125 mg sublingual QID Qty: 30 0RF [id number]-[id number] [Excedrin Extra Strength] 250-250-65 mg tablet 1 tablet PO Q4-6H PRN (Reason: pain) Qty: 60 0RF ferrous sulfate 325 mg (65 mg iron) tablet 325 mg PO DAILY Qty: 90 1RF escitalopram oxalate [Lexapro] 20 mg tablet 20 mg PO DAILY Qty: 30 5RF Follow-up/Referrals: PHYSICIAN,CARE TRANSITION MANAGER [Primary Care Provider, Internal Medicine]
[2025-08-30 12:40] LABS: HIV 1/2 Ab P24 Ag Result Negative (Negative)
[2025-08-30 12:42] LABS: Trichomonas Vag PCR NOT DETECTED (NOT DETECTE)
[2025-09-04 06:08] LABS: HSV-1 DNA Negative (Negative); HSV-2 DNA Negative (Negative)
== END 2025-08-30 12:30 | disposition home or self-care (01) ==
PROVIDERS: Emergency Provider Emergency Medicine
DX: L85.3 Xerosis cutis (principal); Z11.3 Encounter for screening for infections with a predominantly sexual mode of transmission; I10 Essential (primary) hypertension; I25.10 Atherosclerotic heart disease of native coronary artery without angina pectoris; I25.2 Old myocardial infarction; J45.909 Unspecified asthma, uncomplicated; J32.9 Chronic sinusitis, unspecified; R73.03 Prediabetes; K21.9 Gastro-esophageal reflux disease without esophagitis; G47.30 Sleep apnea, unspecified; F43.10 Post-traumatic stress disorder, unspecified; F32.A Depression, unspecified; F41.9 Anxiety disorder, unspecified; Z98.84 Bariatric surgery status; Z87.891 Personal history of nicotine dependence; Z90.49 Acquired absence of other specified parts of digestive tract
CPT/HCPCS: 36415; 80048; 85025; 86593; 86615; 86703; 87491; 87529; 87591; 87661; 99283; G0432